=== PATIENT | female | born 1945 | race Caucasian/White ===

== ENCOUNTER 2020-08-08 11:02 | Outpatient (CLI) | payer MEDICARE, SELFPAY ==
[2020-08-08 12:07] LABS: Alanine Aminotransferase 23 U/L (4-35); Albumin Level 4.1 g/dL (3.5-5.1); Alkaline Phosphatase 85 U/L (38-126); Aspartate Amino Transferase 28 U/L (14-36); Bilirubin,Total 0.3 mg/dL (0.2-1.3)
== END 2020-08-08 11:03 | disposition home or self-care (01) ==
PROVIDERS: PCP Internal Medicine; Visit Provider Podiatrist Foot & Ankle Surgery
DX: B35.1 Tinea unguium (principal)
CPT/HCPCS: 36415; 80076

== ENCOUNTER 2020-11-07 11:48 | Outpatient (CLI) | payer MEDICARE, SELFPAY ==
[2020-11-07 12:59] LABS: Alanine Aminotransferase 23 U/L (4-35); Aspartate Amino Transferase 33 U/L (14-36)
== END 2020-11-07 11:49 | disposition home or self-care (01) ==
PROVIDERS: PCP Internal Medicine; Visit Provider Podiatrist Foot & Ankle Surgery
DX: B35.1 Tinea unguium (principal)
CPT/HCPCS: 36415; 84450; 84460

== ENCOUNTER 2021-02-06 11:39 | Outpatient (CLI) | payer MEDICARE, SELFPAY ==
[2021-02-06 12:08] LABS: Alanine Aminotransferase 24 U/L (4-35); Aspartate Amino Transferase 27 U/L (14-36)
== END 2021-02-06 11:40 | disposition home or self-care (01) ==
PROVIDERS: PCP Internal Medicine; Visit Provider Podiatrist Foot & Ankle Surgery
DX: B35.1 Tinea unguium (principal)
CPT/HCPCS: 36415; 84450; 84460

== ENCOUNTER 2021-07-08 15:26 | Emergency (ER) | payer MEDICARE, SELFPAY ==
--- NOTE | ~2021-07-08 | XR_ITS ---
EXAMINATION: XR lumbar spine 2-3V EXAM DATE: 07/08/2021 18:12 INDICATION: Fall, coccygeal pain. TECHNIQUE: Lumber spine frontal, lateral, lateral L5-S1 projections for interpretation. There is no prior study for comparison. FINDINGS: Sacrum, sacroiliac joints, sacral arcuate lines are intact. Mild lumbar levoscoliosis. Akbar tebral body heights are maintained. There is mild to moderate lumbar disc disease and moderate to sev ere arthropathy. Left hip replacement. Paraspinal soft tissue is unremarkable. IMPRESSION: No acute lumbosacral fracture identified. Reviewed, dictated and finalized at location A. WEAVER
[2021-07-08 15:35] VITALS: BP 154/85; PULSE 75; RESP 16; TEMP 36.7; O2SAT 97
--- NOTE | 2021-07-08 18:47 | ED.GENADULT ---
HPI - General Adult General Chief complaint: Unspecified Stated complaint: FALL, BUTTOCK PAIN Time Seen by Provider: 07/08/21 18:19 History of Present Illness HPI narrative: Patient is a 76-year-old female who presents ER with pain to her buttock. Patient was sitting down in her bathtub when she misjudged the distance and fell directly onto her coccyx. She has been able to have bowel movements and has had normal urination. No numbness or tingling in her groin or going down the legs normal strength in her legs. She has been using a doughnut cushion for sitting due to pain. Denies any blood in stool. Pain is worsened with going from sitting to standing and with direct palpation. Related Data Allergies Allergy/AdvReac Type Severity Reaction Status Date / Time No Known Drug Allergies Allergy Unknown Unknown Verified 07/08/21 17:47 Review of Systems Review of Systems: All systems reviewed & are unremarkable except as noted in HPI and below Musculoskeletal: Musculoskeletal: Reports back pain (sacral), Denies numbness and Denies tingling Neurologic: Denies focal weakness and Denies tingling PMFSH Past Medical History Medical History (Updated 07/08/21 @ 19:11 by Ayan Pearson MD) Hypertension Surgical History Surgical History (Updated 07/08/21 @ 19:11 by Ayan Pearson MD) History of hip surgery Social History Social History Smoking status: Never smoker Exam Narrative: GENERAL: Well-appearing, well-nourished, and in no acute distress. HEAD: Normocephalic, atraumatic. BACK: No reproducible tenderness of the midline/paraspinal musculature of the thoracic or lumbar regions. Tender inferior to gluteal cleft. EXTREMITIES: Normal range of motion. No edema. SKIN: Warm, dry, no rash. NEURO: Alert and oriented x3. PSYCH: Normal mood and affect. Course Course Emergency Course: Patient formed results. Able to ambulate. Will give some narcotic pain medication for home. Vital Signs Vital signs: Vital Signs Temperature 98.0 F 07/08/21 15:35 Pulse Rate 75 07/08/21 15:35 Respiratory Rate 16 07/08/21 15:35 Blood Pressure 154/85 H 07/08/21 15:35 Pulse Oximetry 97 07/08/21 15:35 Temperature 98.0 F 07/08/21 15:35 Pulse Rate 75 07/08/21 15:35 Respiratory Rate 16 07/08/21 15:35 Blood Pressure 154/85 H 07/08/21 15:35 Pulse Oximetry 97 07/08/21 15:35 Medical Decision Making Vital Signs Vital Signs: Vital Signs Temperature 98.0 F 07/08/21 15:35 Pulse Rate 75 07/08/21 15:35 Respiratory Rate 16 07/08/21 15:35 Blood Pressure 154/85 H 07/08/21 15:35 Pulse Oximetry 97 07/08/21 15:35 Temperature 98.0 F 07/08/21 15:35 Pulse Rate 75 07/08/21 15:35 Respiratory Rate 16 07/08/21 15:35 Blood Pressure 154/85 H 07/08/21 15:35 Pulse Oximetry 97 07/08/21 15:35 Imaging Data Radiologist's impression: ITS Impressions Lumbar Spine X-Ray 07/08/21 18:16 IMPRESSION: No acute lumbosacral fracture identified. Discharge Plan Discharge Clinical Impression: Sacral contusion Patient Disposition: Home, Self-Care Condition: Stable Instructions: Contusion in Adults (ED) Additional Instructions: You likely have a deep contusion of your buttock at your coccyx. This will heal with time. Continue to use your Church for comfort. Take Tylenol or ibuprofen as needed for pain. Return to the ER if you have increased pain in your back, you develop lower extremity weakness/numbness/paralysis, you have numbness or tingling in your private parts, or you are unable to control your ability to urinate/stool. Prescriptions: New hydrocodone-acetaminophen 5-325 mg tablet 1 tablet PO Q6H PRN (Reason: pain) Qty: 12 RF: 0 Follow-up/Referrals: Jose Alberto,Jared Gupta MD [Primary Care Provider] - 1 Week
[2021-07-08 19:33] VITALS: BP 145/72; PULSE 66; RESP 16; O2SAT 96
== END 2021-07-08 19:34 | disposition home or self-care (01) ==
LOC: ANHED 18:50
PROVIDERS: Emergency Provider Emergency Medicine; PCP Internal Medicine
DX: S30.0XXA Contusion of lower back and pelvis, initial encounter (principal); I10 Essential (primary) hypertension; W18.39XA Other fall on same level, initial encounter
CPT/HCPCS: 72100; 99283

== ENCOUNTER 2021-08-18 16:01 | Inpatient (IN) | payer MEDICARE, SELFPAY ==
--- NOTE | ~2021-08-18 | US_ITS ---
US venous doppler [facility] DATE: 08/19/2021 13:39 INDICATION: Posterior left knee pain TECHNIQUE: Real-time and color flow imaging and Doppler analysis of the veins of the lower extremitie s COMPARISON: None FINDINGS: There is spontaneous and phasic flow and normal augmentation and color flow signal and norm al compression of the deep veins of both lower extremities. IMPRESSION: No evidence of deep venous thrombosis of either leg Reviewed, dictated and finalized at Location A. Reviewed, dictated and finalized at location A. RPERSONAL COMMUNICATIONS PROFESSOR
--- NOTE | ~2021-08-18 | XR_ITS ---
EXAMINATION: XR knee LT 3V DATE: 08/18/2021 16:51 INDICATION: Left knee pain TECHNIQUE: Three views of the left knee were obtained. COMPARISON: None. FINDINGS: Alignment is normal. No acute fracture or osteochondral lesion. There is an old fracture of the patella. There is moderate tricompartmental osteoarthritis. A small knee joint effusion is prese nt. There is tendinous calcification cranial to the patella. Soft tissue swelling is noted. IMPRESSION: 1. No acute osseous abnormality. Reviewed, dictated and finalized at location F. ERECTOR APPRENTICE
--- NOTE | ~2021-08-18 | XR_ITS ---
EXAMINATION: XR knee RT 3V DATE: 08/21/2021 13:36 INDICATION: Right knee effusion. TECHNIQUE: 3 views of right knee were obtained. COMPARISON: None. FINDINGS: Bone alignment is normal. No fracture. There is moderate osteoarthritis of patellofemoral c ompartment and mild osteoarthritis of medial and lateral compartments. There is chondrocalcinosis of the menisci. There is a large knee joint effusion. IMPRESSION: 1. Moderate right knee osteoarthritis. 2. Large right knee joint effusion. Reviewed, dictated and finalized at location A. IFIED TEACHER ASSISTANT
--- NOTE | ~2021-08-18 | XR_ITS ---
EXAMINATION: XR chest 2V DATE: 08/18/2021 16:51 INDICATION: Increased weakness and confusion TECHNIQUE: AP and lateral views of the chest are obtained. COMPARISON: None available FINDINGS: The lungs are free of acute opacities. There is no pleural effusion or pneumothorax. The ca rdiomediastinal silhouette is normal. There is moderate thoracic spondylosis. There is moderate osteo arthritis of the shoulders. IMPRESSION: 1. No acute cardiopulmonary abnormality. Reviewed, dictated and finalized at location F. ETICS TEACHER
[2021-08-18 16:02] VITALS: TEMP 37.1
[2021-08-18 16:10] VITALS: BP 140/64; PULSE 90; RESP 20; TEMP 38.8; O2SAT 96
--- NOTE | 2021-08-18 16:15 | ECG_ITS ---
Measurements Intervals [place]um Rate: 85 P: 34 IA: 140 QRS: 16 QRSD: 89 T: 7 QT: 365 QTc: 436 Interpretive Statements SINUS RHYTHM VOLTAGE CRITERIA FOR LVH BORDERLINE ST-T WAVE ABNORMALITY- ANT/INF LEADS BASELINE ARTIFACT- I, II, III, AVR, AVL,A VF BORDERLINE ECG Electronically Signed On 08-18-2021 16:43:56 SANDBLASTER PAINT SPRAYER by Rahat Guzmán D.O.
[2021-08-18 16:46] LABS: Hematocrit 37.9 % (37.0-47.0); Hemoglobin 12.7 g/dL (12.0-15.0); Mean Corpuscular HGB Conc 33.5 g/dl (32-36); Mean Corpuscular Hemoglobin 28.7 pg (26-34); Mean Corpuscular Volume 85.7 fl (80-100); Mean Platelet Volume 8.9 fl (7.4-10.4); Platelet Count Result 384 k/mm3 (150-375); Red Blood Count 4.42 M/mm3 (4.2-5.4); Red Cell Distribution Width 14.1 % (11.5-14.5)
[2021-08-18 16:54] LABS: Lactic Acid Reflex 1.5 mmol/L (0.7-2.1)
--- NOTE | 2021-08-18 17:21 | ED.GENADULT ---
HPI - General Adult General Chief complaint: Extremity Problem,Nontraumatic Stated complaint: left leg swelling/pain Time Seen by Provider: 08/18/21 16:19 History of Present Illness HPI narrative: Patient is a 76-year-old female who presents ER with left knee pain. Ongoing for 2 days. Reports she cannot bear weight without significant pain. Its become swollen and warm. She was found to be febrile here. No known fall or injury. No chest pain/shortness of breath/nausea/vomiting/dizziness. Related Data Home Medications Medication Instructions Recorded Confirmed amlodipine 08/18/21 08/18/21 benzonatate mg PO 08/18/21 diphenoxylate-atropine tablet 08/18/21 doxycycline hyclate 08/18/21 ferrous sulfate mg PO 08/18/21 hydrocodone-acetaminophen 08/18/21 lancets [OneTouch Delica Plus 08/18/21 08/18/21 Lancet] mesalamine PO 08/18/21 mesalamine g PO 08/18/21 metformin mg 08/18/21 metformin mg 08/18/21 metoprolol tartrate 08/18/21 metronidazole 08/18/21 pantoprazole PO 08/18/21 pravastatin 08/18/21 sulfamethoxazole-trimethoprim tablet 08/18/21 terbinafine HCl mg 08/18/21 Allergies Allergy/AdvReac Type Severity Reaction Status Date / Time No Known Drug Allergies Allergy Unknown Unknown Verified 08/18/21 16:13 Review of Systems Review of Systems: All systems reviewed & are unremarkable except as noted in HPI and below Constitutional: Constitutional: Denies chills, Reports fatigue, Reports fever(s) and Reports weakness ENT: Denies nasal congestion and Denies sore throat Cardiovascular: Cardiovascular: Denies chest pain, Denies rapid heart rate and Denies radiating jaw, neck or arm pain Respiratory: Respiratory: Denies cough and Denies dyspnea Gastrointestinal: Gastrointestinal: Denies abdominal pain, Denies nausea and Denies vomiting Musculoskeletal: Musculoskeletal: Reports arthralgias and Reports joint swelling Integumentary/Breasts: Skin/Breast: Denies erythema and Denies rash [facility] Past Medical History Medical History (Updated 08/18/21 @ 18:29 by Ayan Pearson MD) Diabetes GERD (gastroesophageal reflux disease) Hyperlipidemia Hypertension Ulcerative colitis Surgical History Surgical History (Updated 07/08/21 @ 19:11 by Ayan Pearson MD) History of hip surgery Social History Social History Smoking status: Never smoker Exam Narrative: GENERAL: Well-appearing, well-nourished, and in no acute distress. HEAD: Normocephalic, atraumatic. EYES: PERRL and EOMI. CHEST: Clear to auscultation. No respiratory distress. HEART: Regular rate and rhythm. Normal peripheral pulses. ABDOMEN: Soft, nontender, nondistended. EXTREMITIES: Left lower extremity with effusion at knee with warmth. Patient unable to perform active/passive range of motion due to pain. Unremarkable upper extremities and right lower extremity. SKIN: Warm, dry, no rash. NEURO: Alert and oriented x3. PSYCH: Normal mood and affect. Course Course Emergency Course: Bloody turbid fluid with floating yellow material. Admit to hospitalist service. Started on Vanco and Zosyn. Orthopedic surgery consulted. Fluid sent for cell count/gram stain/body fluid culture/crystals, there was not enough fluid for glucose or protein. Vital Signs Vital signs: Vital Signs Temperature 98.8 F 08/18/21 16:02 Temperature 101.8 F H 08/18/21 16:10 Pulse Rate 90 08/18/21 16:10 Respiratory Rate 20 08/18/21 16:10 Blood Pressure 140/64 08/18/21 16:10 Pulse Oximetry 96 08/18/21 16:10 Procedures Joint Aspiration/Injection Joint Asp./Inject. 1: Joint Aspiration Date: 08/18/21 Joint Aspiration Time: 18:10 Time Out Performed: Yes Side of body: left Joint Aspirated: knee Skin Prep: Chlorhexidine Local Anesthetic: lidocaine 1% and with epi Amount of anesthesia used (mL): 4 Needle Size Used: 18G Fluid Obtained: other (bloody fluid with olivia
[2021-08-18 17:24] LABS: Band Neutrophils Percent 4 % (0-6); Lymphocytes Absolute Manual 0.96 K/mm3 (1.1-4.5); Monocytes Absolute Manual 0.96 K/mm3 (0.1-0.90); Monocytes Percent Manual 4 % (3-9); Neutrophils Absolute Manual 22.08 K/mm3 (1.7-7.2); Neutrophils Percent Manual 88 % (46-73); Total Cells Counted 100
[2021-08-18 17:25] LABS: Platelet Estimate Increased (Adequate)
[2021-08-18 17:26] LABS: Erythrocyte Sedimentation Rate 42 mm/hr (0-20)
[2021-08-18 17:29] LABS: Alanine Aminotransferase 14 U/L (4-35); Albumin Level 3.4 g/dL (3.5-5.1); Alkaline Phosphatase 99 U/L (38-126); Anion Gap 8 mmol/L (8-16); Aspartate Amino Transferase 23 U/L (14-36); Bilirubin,Total 0.6 mg/dL (0.2-1.3); Blood Urea Nitrogen 13 mg/dL (7-17); Calcium 8.8 mg/dL (8.4-10.2); Carbon Dioxide 29 mmol/L (22-30); Chloride 95 mmol/L (98-107); Estimated Glomerular Filt Rate > 60; Glucose 160 mg/dL (65-110); Potassium 3.4 mmol/L (3.4-5.0); Sodium 132 mmol/L (137-145)
[2021-08-18] MEDS: MORPHINE SULFATE (*CRX) 4 MG/ML INJ IV PUSH (17:31)
[2021-08-18 17:33] LABS: CRP 16.3 mg/dL (<1.0)
[2021-08-18 18:47] VITALS: BP 123/93; PULSE 82; RESP 18; O2SAT 100
--- NOTE | 2021-08-18 19:00 | PM.IMHP ---
H&P: HPI History of Present Illness Date/Time: 08/18/21 19:00 Chief Complaint: Left knee pain and swelling. Narrative: This is a very pleasant 76-year-old female with hypertension, hyperlipidemia, prediabetes, and ulcerative colitis who presented to the emergency department earlier today from home for evaluation of left knee pain and swelling. About a week ago she awoke with some mild aching pain in her left knee and since that time it has become progressively more swollen, warm, and painful. She has been taking Tylenol at home without much benefit. Today she could not even bear weight on her leg due to severe pain and thus she came in for evaluation. X-ray showed moderate tricompartmental arthritis with a small effusion and soft tissue swelling. Arthrocentesis done in the emergency department yielded bloody admixed with yellowish and purulent appearing particulate matter and she is being admitted with the working diagnosis of septic arthritis. She also mentions increasing diarrhea over the past couple of weeks, at least 2 to 3 times per day, consistent with diarrhea that she experiences when her ulcerative colitis flares. She has felt warm at home and indeed she had a temperature of 101.8? on arrival to the ER today. She denies sinus congestion, rhinorrhea, otalgia, odynophagia, cough, shortness of breath, nausea, vomiting, and abdominal pain. She has not noticed any blood or mucus in the stool. She has no history of gout or pseudogout. She has not injured her knee. Review of Systems Review of Systems: Twelve systems were reviewed and are negative except for as per HPI. [facility] Past Medical History Medical History (Updated 08/18/21 @ 22:29 by Leyla Lal PA-C) Deafness in right ear Gastroesophageal reflux disease Hyperlipidemia Hypertension Prediabetes Ulcerative colitis Surgical History Surgical History (Updated 08/18/21 @ 22:24 by Leyla Lal PA-C) History of dilation and curettage History of hip surgery Left hip surgery. Family History Family History (Updated 08/18/21 @ 22:24 by Leyla Lal PA-C) Other Diabetes mellitus Hypertension Social History Social History (Updated 08/18/21 @ 22:24 by Leyla Lal PA-C) Social History: Lives in [place]. Nonsmoker. No alcohol or illicit substance use. 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 Surrogate decision maker: Aby Riley, daughter. Code status: Full code. Meds Home Medications and Allergies Home Medications Medication Instructions Recorded Confirmed Type amlodipine 08/18/21 08/18/21 History aspirin 81 mg PO DAILY 08/18/21 08/18/21 History cyanocobalamin (vitamin B-12) 500 mcg PO DAILY 08/18/21 08/18/21 History [Vitamin B-12] diphenoxylate-atropine tablet 08/18/21 History ferrous sulfate mg PO 08/18/21 History mesalamine g PO 08/18/21 History metformin mg 08/18/21 History metoprolol tartrate 08/18/21 History multivitamin with minerals [All 1 tablet PO DAILY 08/18/21 08/18/21 History Purpose Multivitamin-Min] pantoprazole PO 08/18/21 History pravastatin 08/18/21 History Allergies Allergy/AdvReac Type Severity Reaction Status Date / Time No Known Drug Allergies Allergy Unknown Unknown Verified 08/18/21 22:12 Vital Signs Vital Signs - 24 hr 08/18/21 16:02 08/18/21 16:10 08/18/21 18:47 Temperature 98.8 F 101.8 F H Pulse Rate 90 82 Respiratory Rate 20 18 Blood Pressure 140/64 123/93 H Pulse Oximetry 96 100 08/18/21 19:09 08/18/21 21:42 Temperature 97.9 F Pulse Rate 80 77 Respiratory Rate 20 16 Blood Pressure 105/79 129/66 Pulse Oximetry 95 97 Exam Narrative: General: Well-developed, nontoxic elderly female supine in bed. Weight: 74 kg. BMI: 29.8. HEENT: Hard of hearing. Hearing aid in the left ear. PERRL, EOMI. Sclerae anicteric. Oral mucosa moist. Neck: Supple. No adenopathy. Respiratory: Lungs are clear to auscultation bilaterally. Cardiovascular: Regular rate and rhy
[2021-08-18 19:09] VITALS: BP 105/79; PULSE 80; RESP 20; O2SAT 95
[2021-08-18 19:12] LABS: Crystals Synovial Fluid None Seen (None Seen)
[2021-08-18 19:13] LABS: Appearance Synovial Fluid Bloody (Clear); Color Synovial Fluid Red (Colorless); Source Synovial Fluid Synovial fluid
[2021-08-18 19:16] LABS: Lymphocytes Synovial Fluid 2 %; Monocytes Synovial Fluid 3 %; Neutrophils Synovial Fluid 95 % (0-25)
[2021-08-18 19:39] LABS: SARS-CoV-2 RNA PCR Negative
--- NOTE | 2021-08-18 20:17 | PC.NURSE ---
straight cath for urine spec sent to lab
[2021-08-18] MEDS: SODIUM CHLORIDE 0.9% IV 1,000 ML 125 ML IV CONT (20:34)
[2021-08-18 20:45] LABS: Add Urine Microscopic? YES; Appearance Urine Clear (Clear); Bacteria Urine Trace /hpf; Bilirubin Urine Negative (Negative); Blood Urine Negative (Negative); Color Urine Yellow (Yellow); Glucose Urine UA Negative (Negative); Ketones Urine Trace mg/dL (Negative); Leukocyte Esterase Ur Negative LEU/UL (Negative); Mucus Urine Rare /lpf; Nitrate Urine Negative (Negative); Protein Urine Negative (Negative); RBC Urine 0-2 /hpf (0-2); Urobilinogen Urine Negative mg/dL (<2.0)
--- NOTE | 2021-08-18 21:03 | ADMGEN ---
This patient, Lisa Allen, was admitted to 2 Medical Room [id number]. Patient/family oriented to hospital policies and general routines including ID bracelet, bed and alarms, visiting hours, pain management, procedures, bathroom and other care routines, personal items, smoking policy, room service/diet, and visiting hours. Information on how to activate the Rapid Response Team has been discussed. Patient/Family are encouraged to report perceived risks to care and to ask questions if they do not understand what they are told or what they should do.
[2021-08-18 21:42] VITALS: BP 129/66; PULSE 77; RESP 16; TEMP 36.6; O2SAT 97
[2021-08-18 23:42] VITALS: PULSE 77
[2021-08-18] MEDS: METOPROLOL TARTRATE 50 MG TAB PO (23:42)
[2021-08-18] MEDS: HYDROcodone/acetaminophen (*CRX) 5-325 MG TABLET 1 TAB PO (23:43)
[2021-08-18] MEDS: PRAVASTATIN SODIUM 20 MG TABLET 40 MG PO (23:43)
[2021-08-18] MEDS: PANTOPRAZOLE 40 MG TABLET PO (23:43)
[2021-08-19] VITALS (11 sets, daily range): BP systolic 101–129; BP diastolic 46–66; PULSE 68–95; RESP 14–18; TEMP 36.3–37.1; O2SAT 92–96
[2021-08-19] MEDS: SODIUM CHLORIDE 0.9% IV 1,000 ML 125 ML IV CONT (05:27)
[2021-08-19 06:17] LABS: Basophils Absolute Auto 0.1 K/mm3 (0.0-0.1); Basophils Percent Auto 0.3 % (0.2-1.2); Eosinophils Percent Auto 0.2 % (0-4.4); Hemoglobin 12.1 g/dL (12.0-15.0); Immature Granulocyte Absolute 0.16 K/mm3 (0.00-0.031); Immature Granulocyte Percent A 0.9 % (0-0.5); Lymphocytes Absolute Auto 3.22 K/mm3 (0.9-3.2); Lymphocytes Percent Auto 18.3 % (18.3-44.2); Mean Corpuscular HGB Conc 32.7 g/dl (32-36); Mean Corpuscular Hemoglobin 28.8 pg (26-34); Mean Corpuscular Volume 88.1 fl (80-100); Mean Platelet Volume 9.1 fl (7.4-10.4); Monocytes Absolute Auto 1.9 K/mm3 (0.1-0.6); Monocytes Percent Auto 10.5 % (2.6-8.5); Neutrophils Absolute Auto 12.2 K/mm3 (1.3-6.7); Neutrophils Percent Auto 69.8 % (45.5-73.1); Platelet Count Result 373 k/mm3 (150-375); Red Cell Distribution Width 14.2 % (11.5-14.5); White Blood Count 17.6 K/mm3 (4.5-10.0)
[2021-08-19 06:31] LABS: Alanine Aminotransferase 16 U/L (4-35); Albumin Level 3.2 g/dL (3.5-5.1); Alkaline Phosphatase 88 U/L (38-126); Anion Gap 9 mmol/L (8-16); Aspartate Amino Transferase 22 U/L (14-36); Bilirubin,Total 0.6 mg/dL (0.2-1.3); Blood Urea Nitrogen 15 mg/dL (7-17); Calcium 8.4 mg/dL (8.4-10.2); Carbon Dioxide 26 mmol/L (22-30); Chloride 99 mmol/L (98-107); Estimated CRCL calculation 38 ml/min; Estimated Glomerular Filt Rate 54; Glucose 139 mg/dL (65-110); Magnesium 2.2 mg/dL (1.6-2.3); Potassium 3.4 mmol/L (3.4-5.0); Sodium 134 mmol/L (137-145)
[2021-08-19 07:52] LABS: Glucose Point of Care 153 mg/dl (65-105)
[2021-08-19 08:57] LABS: Hemoglobin A1C 6.5 % (<5.7)
[2021-08-19] MEDS: amLODIPine BESYLATE 5 MG TABLET PO (09:25)
[2021-08-19] MEDS: THERAPEUTIC MULTIVITAMINS/MINERALS TAB (*BKC) 1 TABLET PO (09:25)
[2021-08-19] MEDS: FERROUS SULFATE 324 MG TABLET PO (09:25)
[2021-08-19] MEDS: POTASSIUM CHLORIDE 20 MEQ TABLET 40 MEQ PO (09:25)
[2021-08-19] MEDS: METOPROLOL TARTRATE 50 MG TAB PO ×2 (09:25→20:26)
[2021-08-19] MEDS: CYANOCOBALAMIN 500 MCG TABLET PO (09:25)
[2021-08-19] MEDS: HYDROcodone/acetaminophen (*CRX) 5-325 MG TABLET 1 TAB PO ×3 (09:29→20:57)
[2021-08-19] MEDS: DIPHENOXYLATE/ATROPINE (*CRX) 2.5 MG TABLET 1 TABLET PO ×2 (09:55→17:17)
--- NOTE | 2021-08-19 09:55 | PM.CNOR ---
Assessment and Plan Assessment and plan (1) Septic joint of left knee joint: Qualifiers: Septic arthritis organism: due to unspecified organism Qualified Code(s): M00.9 - Pyogenic arthritis, unspecified <CHAMP Rock - Last Filed: 08/19/21 10:25> Code(s): M00.9 - Pyogenic arthritis, unspecified <CHAMP Rock - Last Filed: 08/19/21 10:25> Status: Acute <CHAMP Rock - Last Filed: 08/19/21 10:25> Assessment and Plan: Severe acute left knee pain. Significant warmth and erythema. Bloody tap with a paucity of fluid from the emergency room. WBC 17,000, down from 24,000. Synovial WBC not counted. PMN's 95% on the tap. Cultures pending. History of ulcerative colitis with current diarrhea. Sed rate and ESR elevated. Low-grade fevers. No other definite infection source. Possibly urinary tract. Differential diagnosis includes gout or pseudogout. She does have a history of gout. Currently the right knee is also mildly painful without signs of infection. No other definite joint involvement. 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 Recommend IV antibiotics while we await cultures. No indication for surgery at this time. Serial aspirations may be required. <Bimal Welch MD - Last Filed: 08/19/21 10:24> History of Present Illness HPI Consult date: 08/19/21 <CHAMP Rock - Last Filed: 08/19/21 10:25> 08/19/21 <Bimal Welch MD - Last Filed: 08/19/21 10:24> Consult reason: joint pain <CHAMP Rock - Last Filed: 08/19/21 10:25> Chief complaint: Septic Arthritis <CHAMP Rock - Last Filed: 08/19/21 10:25> Narrative: Patient was admitted through the ER on 08/18/21 with concerns for septic arthritis in the left knee. Complained of 2 days of inability to bear weight, swelling, warmth, fever, and diarrhea. In the ER, her knee was aspirated and found to have bloody fluid with yellow purulent particulate matter. She has a history of ulcerative colitis and gout in her foot in the past. Today she complains of tenderness to touch to the left knee, right knee pain, and diarrhea. ESR and CRP are elevated. Anaerobic cultures pending. Gram stain showed no growth and many WBC. 95 Neutrophils. No crystals seen. She has received IV Zosyn and Vancomycin. 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 <CHAMP Rock - Last Filed: 08/19/21 10:25> Review of Systems Review of Systems: Patient also complains of diarrhea with ulcerative colitis flare. The right knee is starting to her. Low-grade fever. No recent weight loss. No bladder symptoms. <Bimal Welch MD - Last Filed: 08/19/21 10:24> Constitutional: Constitutional: Reports as per HPI and Reports frequent falls <Bimal Welch MD - Last Filed: 08/19/21 10:24> [facility] Past Medical History Medical History: Medical History Deafness in right ear Gastroesophageal reflux disease Hyperlipidemia Hypertension Prediabetes Ulcerative colitis <CHAMP Rock - Last Filed: 08/19/21 10:25> Surgical History Surgical History: Surgical History History of dilation and curettage History of hip surgery Left hip surgery. <CHAMP Rock - Last Filed: 08/19/21 10:25> Family History Family History: Family History Other Diabetes mellitus Hypertension <CHAMP Rock - Last Filed: 08/19/21 10:25> Social History Social History: Social History Social History: Lives in [place]. Nonsmoker. No alcohol or illicit substance use. Retired grade [employer]
--- NOTE | 2021-08-19 10:42 | PM.IMPN ---
Progress Note: A&P Assessment and Plan (1) Sepsis: Code(s): A41.9 - Sepsis, unspecified organism Status: Acute Assessment and Plan: Sepsis is present on admission supported by fever, bandemia, and leukocytosis. Presumably due to septic joint. While the patient has had diarrhea consistent with possible ulcerative colitis flare, her abdominal exam has been benign. Lactic acid level is within normal limits. Her vital signs are stable. Blood and joint cultures pending. Continue monitoring. (2) Septic joint of left knee joint: Qualifiers: Septic arthritis organism: due to unspecified organism Qualified Code(s): M00.9 - Pyogenic arthritis, unspecified Code(s): M00.9 - Pyogenic arthritis, unspecified Status: Acute Assessment and Plan: Working diagnosis is septic left knee joint Synovial fluid analysis showed bloody appearance, elevated neutrophils 95% and no crystals seen. Patient seen by Dr. Welch today and recommend continuing broad-spectrum antibiotics. Monitoring labs and waiting for culture results. Continue IV empiric vancomycin and Zosyn #2. Analgesics available as needed. Continue monitoring (3) Diarrhea: Code(s): R19.7 - Diarrhea, unspecified Status: Acute Assessment and Plan: Patient has had several episodes of diarrhea daily for the last 2 weeks which she has attributed to her ulcerative colitis. She has not noticed any blood or mucus in the stool and denies abdominal pain. She has not had sick contacts, recent travel, or recent antibiotic use. (4) Ulcerative colitis: Code(s): K51.90 - Ulcerative colitis, unspecified, without complications Status: Acute Assessment and Plan: Hold mesalamine for now pending confirmation of septic joint. (5) Hypertension: Code(s): I10 - Essential (primary) hypertension Status: Acute Assessment and Plan: Blood pressures were reviewed and they are stable, 105/54. Her antihypertensives will be reviewed and resumed as appropriate. (6) Prediabetes: Code(s): R73.03 - Prediabetes Status: Acute Assessment and Plan: Hold metformin while hospitalized. Continue monitoring ACHS. Hypoglycemic protocol. A1c 6.5%. Time Spent With Patient Time with patient: 25 - 35 minutes Subjective Date/time seen: 08/19/21 10:42 Interval history: Date of service 08/19/2021: Patient is still having pain, warmth, decreased range of motion of her left knee which began yesterday causing come to the ER. She denies any fevers, chills. She otherwise has not had any recent dental work, chest pain, shortness of breath, cough, nausea, vomiting, abdominal pain, leg swelling, calf pain, recent falls, recent trauma or any other abnormality. She is eating and drinking without any issues. Review of Systems Review of Systems: All systems reviewed & are unremarkable except as noted in HPI and below Exam Narrative: General: 76-year-old woman sitting up in bed watching TV. Appears comfortable. In no acute distress. Skin: No jaundice or cyanosis. Good skin turgor. Neck: Full range of motion. Supple. Respiratory: Lungs are clear to auscultation bilaterally. No bony chest wall tenderness. Cardiovascular: The heart has a regular rate and rhythm without murmur. No carotid bruits. Lower extremities: Left knee is edematous, erythematous, warmth noted, pain to palpation. No lower extremity edema. Distal pulses are easily palpated. No calf tenderness to palpation. Gastrointestinal: The abdomen is soft, nontender and nondistended with active bowel sounds. Psychiatric: Lucid and oriented. Memory intact. Neurologic: No focal deficits. Speech is clear. No facial drooping. Objective Data Vital Signs Vital Signs: Vital Signs - 24 hr 08/18/21 16:02 08/18/21 16:10 08/18/21 18:47 Temperature 98.8 F 101.8 F H Pulse Rate 90 82 Respiratory Rate 20 18 Blood Pre
[2021-08-19 11:51] LABS: Glucose Point of Care 150 mg/dl (65-105)
[2021-08-19 16:48] LABS: Glucose Point of Care 120 mg/dl (65-105)
[2021-08-19] MEDS: PANTOPRAZOLE 40 MG TABLET PO (17:13)
[2021-08-19] MEDS: PRAVASTATIN SODIUM 20 MG TABLET 40 MG PO (20:26)
[2021-08-20 03:15] VITALS: BP 109/51; PULSE 72; RESP 17; TEMP 36; O2SAT 92
[2021-08-20 07:04] LABS: Anion Gap 7 mmol/L (8-16); Blood Urea Nitrogen 11 mg/dL (7-17); CRP 16.6 mg/dL (<1.0); Calcium 7.8 mg/dL (8.4-10.2); Carbon Dioxide 23 mmol/L (22-30); Chloride 103 mmol/L (98-107); Estimated CRCL calculation 47 ml/min; Estimated Glomerular Filt Rate > 60; Glucose 124 mg/dL (65-110); Potassium 3.4 mmol/L (3.4-5.0); Sodium 133 mmol/L (137-145); Uric Acid 4.2 mg/dL (2.5-7.5)
[2021-08-20 07:49] LABS: Glucose Point of Care 109 mg/dl (65-105)
--- NOTE | 2021-08-20 08:15 | PM.IMPN ---
Progress Note: A&P Assessment and Plan (1) Sepsis: Code(s): A41.9 - Sepsis, unspecified organism Status: Acute Assessment and Plan: Sepsis is present on admission supported by fever, bandemia, and leukocytosis. Presumably due to septic joint. While the patient has had diarrhea consistent with possible ulcerative colitis flare, her abdominal exam has been benign. Lactic acid level is within normal limits. Her vital signs are stable. joint cultures NGTD Get blood cultures Continue antibiotics WBC 17.0 Trend labs Continue monitoring. (2) Septic joint of left knee joint: Qualifiers: Septic arthritis organism: due to unspecified organism Qualified Code(s): M00.9 - Pyogenic arthritis, unspecified Code(s): M00.9 - Pyogenic arthritis, unspecified Status: Acute Assessment and Plan: Working diagnosis is septic left knee joint Synovial fluid analysis showed bloody appearance, elevated neutrophils 95% and no crystals seen. Patient seen by Dr. Welch today and recommend continuing broad-spectrum antibiotics. Monitoring labs and waiting for culture results. Continue IV empiric vancomycin and Zosyn #2, change to cefepime and vanco to protect kidneys Analgesics available as needed. Continue monitoring (3) Diarrhea: Code(s): R19.7 - Diarrhea, unspecified Status: Acute Assessment and Plan: Patient has had several episodes of diarrhea daily for the last 2 weeks which she has attributed to her ulcerative colitis. She has not noticed any blood or mucus in the stool and denies abdominal pain. She has not had sick contacts, recent travel, or recent antibiotic use. (4) Ulcerative colitis: Code(s): K51.90 - Ulcerative colitis, unspecified, without complications Status: Acute Assessment and Plan: Hold mesalamine for now pending confirmation of septic joint. (5) Hypertension: Code(s): I10 - Essential (primary) hypertension Status: Acute Assessment and Plan: Blood pressures were reviewed and they are stable, 116/50 Her antihypertensives will be reviewed and resumed as appropriate. (6) Prediabetes: Code(s): R73.03 - Prediabetes Status: Acute Assessment and Plan: Hold metformin while hospitalized. Continue monitoring ACHS. Hypoglycemic protocol. A1c 6.5%. Time Spent With Patient Time with patient: 25 - 35 minutes Subjective Date/time seen: 08/20/21 0815 Interval history: Date of service 08/19/2021: Patient is still having pain, warmth, decreased range of motion of her left knee which began yesterday causing come to the ER. She denies any fevers, chills. She otherwise has not had any recent dental work, chest pain, shortness of breath, cough, nausea, vomiting, abdominal pain, leg swelling, calf pain, recent falls, recent trauma or any other abnormality. She is eating and drinking without any issues. Date of service 08/20/21 Patient is lying in bed on her side. Patient stated that she is able to bend her legs but she sleeps with a pillow between. She stated that her knees do hurt it is probably from inactivity. She also stated that she has colitis and normally gets diarrhea which she does have. Appetite it is good however she is not having either. She denies any bleeding along with chest pain, shortness of breath, nausea, vomiting, abdominal pain, headache. Review of Systems Review of Systems: All systems reviewed & are unremarkable except as noted in HPI and below Exam Const: General: cooperative, healthy appearing, no acute distress, well developed, alert and awake Nutritional Appearance: well nourished Orientation/consciousness: patient oriented x3 Limitations: no limitations HENMT: Head: normal to inspection Ears: hearing grossly normal bilaterally General nose exam: Normal external nose present Mouth: Yes Normal oral and palatal mucosa present, Yes lip normal and Yes tong
[2021-08-20] MEDS: amLODIPine BESYLATE 5 MG TABLET PO (08:51)
[2021-08-20] MEDS: FERROUS SULFATE 324 MG TABLET PO (08:51)
[2021-08-20 08:52] VITALS: PULSE 84
[2021-08-20] MEDS: THERAPEUTIC MULTIVITAMINS/MINERALS TAB (*BKC) 1 TABLET PO (08:52)
[2021-08-20] MEDS: METOPROLOL TARTRATE 50 MG TAB PO ×2 (08:52→20:32)
[2021-08-20] MEDS: CYANOCOBALAMIN 500 MCG TABLET PO (08:52)
[2021-08-20] MEDS: DIPHENOXYLATE/ATROPINE (*CRX) 2.5 MG TABLET 1 TABLET PO ×2 (08:56→17:33)
[2021-08-20 10:29] VITALS: BP 121/59; PULSE 75; RESP 20; TEMP 36.8; O2SAT 94
[2021-08-20 11:18] LABS: Basophils Absolute Auto 0.1 K/mm3 (0.0-0.1); Basophils Percent Auto 0.3 % (0.2-1.2); Eosinophils Absolute Auto 0.2 K/mm3 (0-0.3); Eosinophils Percent Auto 0.9 % (0-4.4); Hematocrit 36.9 % (37.0-47.0); Hemoglobin 11.5 g/dL (12.0-15.0); Immature Granulocyte Absolute 0.14 K/mm3 (0.00-0.031); Immature Granulocyte Percent A 0.8 % (0-0.5); Lymphocytes Absolute Auto 2.09 K/mm3 (0.9-3.2); Lymphocytes Percent Auto 12.3 % (18.3-44.2); Mean Corpuscular HGB Conc 31.2 g/dl (32-36); Mean Corpuscular Hemoglobin 28.8 pg (26-34); Mean Corpuscular Volume 92.3 fl (80-100); Monocytes Absolute Auto 1.1 K/mm3 (0.1-0.6); Monocytes Percent Auto 6.6 % (2.6-8.5); Neutrophils Absolute Auto 13.5 K/mm3 (1.3-6.7); Neutrophils Percent Auto 79.1 % (45.5-73.1); Platelet Count Result 332 k/mm3 (150-375); Red Cell Distribution Width 14.5 % (11.5-14.5)
[2021-08-20 11:41] LABS: Glucose Point of Care 136 mg/dl (65-105)
[2021-08-20 14:00] VITALS: BP 116/50; PULSE 76; RESP 18; TEMP 36.9; O2SAT 94
--- NOTE | 2021-08-20 15:44 | PM.PNORT ---
Progress Note: A&P Assessment and Plan (1) Septic joint of left knee joint: Qualifiers: Septic arthritis organism: due to unspecified organism Qualified Code(s): M00.9 - Pyogenic arthritis, unspecified Code(s): M00.9 - Pyogenic arthritis, unspecified Status: Acute Assessment and Plan: No significant change on exam of left knee today. No increased effusion requiring aspiration. Right knee with moderate effusion and pain today. Differential diagnosis includes gout or pseudogout. Will likely aspirate right knee tomorrow. Consider steroid injection. Will likely send fluid to look for crystals. Left knee cultures show no growth to date. Awaiting final cultures. Continue antibiotics. Afebrile today. Severe acute left knee pain. Significant warmth and erythema. Bloody tap with a paucity of fluid from the emergency room. WBC 17,000, down from 24,000. Synovial WBC not counted. PMN's 95% on the tap. Cultures pending. Uric acid with in normal range. History of ulcerative colitis with current diarrhea. Sed rate and ESR elevated. Low-grade fever on admission. No other definite infection source. Possibly urinary tract. She does have a history of gout. 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 Subjective Subjective Date/Time Seen: 08/20/21 15:44 Patient complaining of worsening right knee pain and swelling today. Also left knee pain. Pain radiating up her thigh. Mild left calf pain. Doppler today was negative for DVT on the left. Afebrile today. No other complaints. Cultures show no growth at this time. Patient was admitted through the ER on 08/18/21 with concerns for septic arthritis in the left knee. Complained of 2 days of inability to bear weight, swelling, warmth, fever, and diarrhea. In the ER, her knee was aspirated and found to have bloody fluid with yellow purulent particulate matter. She has a history of ulcerative colitis and gout in her foot in the past. Complained of tenderness to touch to the left knee, right knee pain, and diarrhea. ESR and CRP are elevated. Anaerobic cultures pending. Gram stain showed no growth and many WBC. 95 Neutrophils. No crystals seen. She has received IV Zosyn and Vancomycin. 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 Review of Systems Review of Systems: All systems reviewed & are unremarkable except as noted in HPI and below Exam Narrative: Pleasant 76-year-old female. Hard of hearing. Lying in bed cofortably. Vital signs stable. Comfortable. Alert orient x3. Shows fair insight. Left knee: significant warmth. Mild erythema. Diffuse exquisite tenderness. Painful range of motion for 10? to 30?. No varus or valgus deformity. Mild effusion. Severe synovitis. No significant change since previous day. Right knee: warmth, No erythema, Diffuse exquisite tenderness. Painful ROM. No obvious deformity. Moderate effusion. Ankle examination benign. Neurovascular intact. No edema. Objective Data Vital Signs Vital Signs: Vital Signs - 24 hr 08/19/21 17:30 08/19/21 20:00 08/19/21 20:26 Temperature 98.1 F Pulse Rate 77 70 Respiratory Rate 18 Blood Pressure 106/46 L Pulse Oximetry 96 96 08/19/21 20:34 08/19/21 23:16 08/20/21 03:15 Temperature 97.9 F 98.6 F 96.8 F L Pulse Rate 80 95 72 Respiratory Rate 17 18 17 Blood Pressure 129/66 101/58 L 109/51 L Pulse Oximetry 96 94 92 08/20/21 08:52 08/20/21 10:29 08/20/21 14:00 Temperature 98.2 F 98.5 F Pulse Rate 84 75 76 Respiratory Rate 20 18 Blood Pressure 121/59 L 116/50 L Pulse Oximetry 94 94 Intake/Output Intake/Output: Intake & Output 08/17/21 08/18/21 08/19/21 08/20/21 23:59 23:59 23:59 23:59 Intake Total 50 4460 580 Output Total 2250 200 Balance 50 2210 380 Meds/Results Medications: Active Medications Generic Name Dose Route Start Last Admin Trade Name F
[2021-08-20 16:45] LABS: Glucose Point of Care 110 mg/dl (65-105)
[2021-08-20] MEDS: PRAVASTATIN SODIUM 20 MG TABLET 40 MG PO (17:31)
[2021-08-20] MEDS: PANTOPRAZOLE 40 MG TABLET PO (17:32)
[2021-08-20 20:32] VITALS: PULSE 78
[2021-08-20 20:56] LABS: Glucose Point of Care 123 mg/dl (65-105)
[2021-08-20 20:57] VITALS: BP 140/54; PULSE 80; RESP 20; TEMP 36.2; O2SAT 97
[2021-08-21] VITALS (8 sets, daily range): BP systolic 123–155; BP diastolic 51–72; PULSE 70–83; RESP 18–22; TEMP 36.1–37.3; O2SAT 94–100
[2021-08-21] MEDS: HYDROcodone/acetaminophen (*CRX) 5-325 MG TABLET 1 TAB PO (02:49)
[2021-08-21 05:54] LABS: Basophils Percent Auto 0.3 % (0.2-1.2); Eosinophils Absolute Auto 0.1 K/mm3 (0-0.3); Eosinophils Percent Auto 0.7 % (0-4.4); Hematocrit 33.6 % (37.0-47.0); Hemoglobin 10.8 g/dL (12.0-15.0); Immature Granulocyte Absolute 0.11 K/mm3 (0.00-0.031); Immature Granulocyte Percent A 0.8 % (0-0.5); Lymphocytes Percent Auto 15.9 % (18.3-44.2); Mean Corpuscular HGB Conc 32.1 g/dl (32-36); Mean Corpuscular Hemoglobin 29.4 pg (26-34); Mean Corpuscular Volume 91.6 fl (80-100); Monocytes Percent Auto 7.4 % (2.6-8.5); Neutrophils Absolute Auto 10.3 K/mm3 (1.3-6.7); Neutrophils Percent Auto 74.9 % (45.5-73.1); Platelet Count Result 310 k/mm3 (150-375); Red Blood Count 3.67 M/mm3 (4.2-5.4); Red Cell Distribution Width 14.2 % (11.5-14.5); White Blood Count 13.8 K/mm3 (4.5-10.0)
[2021-08-21 06:02] LABS: Alanine Aminotransferase 17 U/L (4-35); Albumin Level 2.9 g/dL (3.5-5.1); Alkaline Phosphatase 92 U/L (38-126); Anion Gap 7 mmol/L (8-16); Aspartate Amino Transferase 24 U/L (14-36); Bilirubin,Total 0.4 mg/dL (0.2-1.3); Blood Urea Nitrogen 5 mg/dL (7-17); Carbon Dioxide 29 mmol/L (22-30); Chloride 102 mmol/L (98-107); Estimated CRCL calculation 47 ml/min; Estimated Glomerular Filt Rate > 60; Glucose 124 mg/dL (65-110); Potassium 3.1 mmol/L (3.4-5.0); Sodium 138 mmol/L (137-145)
--- NOTE | 2021-08-21 08:00 | PM.IMPN ---
Progress Note: A&P Assessment and Plan (1) Sepsis: Code(s): A41.9 - Sepsis, unspecified organism Status: Acute Assessment and Plan: Sepsis is present on admission supported by fever, bandemia, and leukocytosis. Presumably due to septic joint. While the patient has had diarrhea consistent with possible ulcerative colitis flare, her abdominal exam has been benign. Lactic acid level is within normal limits. Her vital signs are stable. joint cultures NGTD Get blood cultures Continue antibiotics WBC 17.0 Trend labs Continue monitoring. (2) Septic joint of left knee joint: Qualifiers: Septic arthritis organism: due to unspecified organism Qualified Code(s): M00.9 - Pyogenic arthritis, unspecified Code(s): M00.9 - Pyogenic arthritis, unspecified Status: Acute Assessment and Plan: Working diagnosis is septic left knee joint Synovial fluid analysis showed bloody appearance, elevated neutrophils 95% and no crystals seen. Patient seen by Dr. Welch today and recommend continuing broad-spectrum antibiotics. Monitoring labs and waiting for culture results. Cultures show no growth to date Continue IV empiric vancomycin and Zosyn #2, change to cefepime and vanco to protect kidneys Analgesics available as needed. Continue monitoring (3) Effusion, left knee: Code(s): M25.462 - Effusion, left knee Status: Acute Assessment and Plan: See above (4) Diarrhea: Code(s): R19.7 - Diarrhea, unspecified Status: Acute Assessment and Plan: Patient has had several episodes of diarrhea daily for the last 2 weeks which she has attributed to her ulcerative colitis. She has not noticed any blood or mucus in the stool and denies abdominal pain. She has not had sick contacts, recent travel, or recent antibiotic use. (5) Ulcerative colitis: Code(s): K51.90 - Ulcerative colitis, unspecified, without complications Status: Acute Assessment and Plan: Hold mesalamine for now pending confirmation of septic joint. (6) Hypertension: Code(s): I10 - Essential (primary) hypertension Status: Acute Assessment and Plan: Blood pressures were reviewed and they are stable, 116/50 Her antihypertensives will be reviewed and resumed as appropriate. (7) Prediabetes: Code(s): R73.03 - Prediabetes Status: Acute Assessment and Plan: Hold metformin while hospitalized. Continue monitoring ACHS. Hypoglycemic protocol. A1c 6.5%. (8) Knee effusion, right: Code(s): M25.461 - Effusion, right knee Status: Acute Assessment and Plan: RT knee xray show effusion 45cc aspirated Await testing Continue antibiotics Ortho on board Time Spent With Patient Time with patient: Greater than 35 minutes Subjective Date/time seen: 08/21/21 0800 Interval history: Date of service 08/19/2021: Patient is still having pain, warmth, decreased range of motion of her left knee which began yesterday causing come to the ER. She denies any fevers, chills. She otherwise has not had any recent dental work, chest pain, shortness of breath, cough, nausea, vomiting, abdominal pain, leg swelling, calf pain, recent falls, recent trauma or any other abnormality. She is eating and drinking without any issues. Date of service 08/20/21 Patient is lying in bed on her side. Patient stated that she is able to bend her legs but she sleeps with a pillow between. She stated that her knees do hurt it is probably from inactivity. She also stated that she has colitis and normally gets diarrhea which she does have. Appetite it is good however she is not having either. She denies any bleeding along with chest pain, shortness of breath, nausea, vomiting, abdominal pain, headache. Date of Service 08/21/21 0800 Patient is lying in bed. Patient states that she is feeling okay. She said her knees do not hurt as
[2021-08-21] MEDS: amLODIPine BESYLATE 5 MG TABLET PO (08:24)
[2021-08-21] MEDS: CYANOCOBALAMIN 500 MCG TABLET PO (08:24)
[2021-08-21] MEDS: FERROUS SULFATE 324 MG TABLET PO (08:24)
[2021-08-21] MEDS: METOPROLOL TARTRATE 50 MG TAB PO ×2 (08:25→20:07)
[2021-08-21] MEDS: THERAPEUTIC MULTIVITAMINS/MINERALS TAB (*BKC) 1 TABLET PO (08:25)
[2021-08-21] MEDS: DIPHENOXYLATE/ATROPINE (*CRX) 2.5 MG TABLET 1 TABLET PO ×2 (08:28→17:07)
[2021-08-21 09:16] LABS: Glucose Point of Care 167 mg/dl (65-105)
--- NOTE | 2021-08-21 11:01 | PM.PNORT ---
Progress Note: A&P Assessment and Plan (1) Septic joint of left knee joint: Qualifiers: Septic arthritis organism: due to unspecified organism Qualified Code(s): M00.9 - Pyogenic arthritis, unspecified Code(s): M00.9 - Pyogenic arthritis, unspecified Status: Acute (2) Effusion, left knee: Code(s): M25.462 - Effusion, left knee Status: Acute (3) Knee effusion, right: Code(s): M25.461 - Effusion, right knee Status: Acute Assessment and Plan: No significant change on exam of left knee today. No increased effusion requiring aspiration. Right knee with large effusion and pain today. Aspiration today. 45 cc Cloudy fluid aspirated today. Differential includes infection, gout, or pseudo gout. Ordering synovial fluid cell count, crystals, cultures today. Awaiting results. Left knee cultures show no growth to date. Awaiting final cultures. Continue antibiotics. Afebrile today. Will order xray of right knee today. Subjective Subjective Date/Time Seen: 08/21/21 11:01 Patient complaining of worsening right knee pain and swelling today. Right worse then left today. Also left knee pain. Warmth in both knees. Pain radiating up her thigh. Mild left calf pain. No other complaints. Cultures show no growth at this time. Patient was admitted through the ER on 08/18/21 with concerns for septic arthritis in the left knee. Complained of 2 days of inability to bear weight, swelling, warmth, fever, and diarrhea. In the ER, her knee was aspirated and found to have bloody fluid with yellow purulent particulate matter. She has a history of ulcerative colitis and gout in her foot in the past. Complained of tenderness to touch to the left knee, right knee pain, and diarrhea. ESR and CRP are elevated. Anaerobic cultures pending. Gram stain showed no growth and many WBC. 95 Neutrophils. No crystals seen. She has received IV Zosyn and Vancomycin. 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 Doppler negative for DVT on the left. Exam Narrative: Pleasant 76-year-old female. Hard of hearing. Lying in bed cofortably. Vital signs stable. Comfortable. Alert orient x3. Shows fair insight. Left knee: significant warmth. Mild erythema. Diffuse exquisite tenderness. Painful range of motion for 10? to 30?. No varus or valgus deformity. Mild effusion. Severe synovitis. No significant change since previous day. Right knee: warmth, No erythema, Diffuse exquisite tenderness. Painful ROM. No obvious deformity. Painful range of motion for 10? to 30?. No varus or valgus deformity. Large effusion. Ankle examination benign. Neurovascular intact. No edema. Objective Data Vital Signs Vital Signs: Vital Signs - 24 hr 08/20/21 14:00 08/20/21 20:32 08/20/21 20:57 Temperature 98.5 F 97.1 F L Pulse Rate 76 78 80 Respiratory Rate 18 20 Blood Pressure 116/50 L 140/54 L Pulse Oximetry 94 97 08/21/21 00:19 08/21/21 04:03 08/21/21 08:25 Temperature 97.7 F 97 F L Pulse Rate 83 75 77 Respiratory Rate 22 H 20 Blood Pressure 151/63 H 123/51 L Pulse Oximetry 94 96 Intake/Output Intake/Output: Intake & Output 08/18/21 08/19/21 08/20/21 08/21/21 23:59 23:59 23:59 23:59 Intake Total 50 4460 1720 840 Output Total 2250 200 1200 Balance 50 2210 1520 -360 Meds/Results Medications: Active Medications Generic Name Dose Route Start Last Admin Trade Name Freq PRN Reason Stop Dose Admin Acetaminophen 650 mg 08/18/21 18:32 Acetaminophen 325 Mg Tablet PO Q4H PRN Mild Pain (1-3) or Fever Hydrocodone Bitart/Acetaminophen 1 tab 08/18/21 18:32 08/21/21 02:49 Hydrocodone/Acetaminophen (*Crx) 5-325 Mg Tablet PO 1 tab Q4H PRN Administration Pain Rated 4-6 Amlodipine Besylate 5 mg 08/19/21 09:00 08/21/21 08:24 Amlodipine Besylate 5 Mg Tablet PO 5 mg DAILY AMY Administration Cyanocobalamin 500 mcg
--- NOTE | 2021-08-21 11:09 | PM.OP ---
Procedure Note - Brief Procedure Note - Brief Date of procedure: 08/21/21 <CHAMP Rock - Last Filed: 08/21/21 12:25> 08/21/21 <Bimal Welch MD - Last Filed: 08/21/21 15:47> Pre-op diagnosis: Septic Arthritis <CHAMP Rock - Last Filed: 08/21/21 12:25> Description of procedure: I was present for the procedure. Bimal Welch MD. <Bimal Welch MD - Last Filed: 08/21/21 15:47> Surgeon: CHAMP Rock Joint Aspiration/Injection Right knee: Pre-procedure care: Consent was obtained, Procedures/risks were explained, Questions were answered, Correct patient identified and Correct side and site confirmed Position: Laying Site Prepped: chlorhexidine and povidone-iodine Injection Details right arthrocentesis major joint Knee joint Manual palpation Fluid: Cloudy serous fluid Fluid Withdrawn (mL): 45 cc Sterile Dressing: [place] and Adhesive Post Procedure: Patient tolerated the procedure well <CHAMP Rock - Last Filed: 08/21/21 12:25>
[2021-08-21 11:53] LABS: Glucose Point of Care 131 mg/dl (65-105)
[2021-08-21] MEDS: POTASSIUM CHLORIDE 20 MEQ TABLET 40 MEQ PO (14:36)
[2021-08-21 16:36] LABS: Appearance Synovial Fluid Cloudy (Clear); Color Synovial Fluid Yellow (Colorless); Lymphocytes Synovial Fluid 1 %; Macrophages Synovial Fluid 3 %; Neutrophils Synovial Fluid 96 % (0-25); Nucleated Cell Synovial Fluid 12099 /uL (0-200); RBC Synovial Fluid 7035 /uL (0-0); Source Synovial Fluid Synovial fluid
[2021-08-21 16:49] LABS: Crystals Synovial Fluid Few Cppd (None Seen)
[2021-08-21] MEDS: PANTOPRAZOLE 40 MG TABLET PO (17:07)
[2021-08-21] MEDS: PRAVASTATIN SODIUM 20 MG TABLET 40 MG PO (17:07)
[2021-08-21 17:22] LABS: Glucose Point of Care 138 mg/dl (65-105)
--- NOTE | 2021-08-21 17:22 | PC.NURSE ---
On 08/21/21 the student Nu Angeles, provided care and completed [facility] hospital documentation on this patient. I have reviewed the student's documentation and agree with the plan of care.
[2021-08-21 20:36] LABS: Glucose Point of Care 120 mg/dl (65-105)
[2021-08-21 21:23] LABS: Vancomycin Trough 5.8 ug/mL (10.0-20.0)
[2021-08-22] VITALS (10 sets, daily range): BP systolic 132–148; BP diastolic 50–60; PULSE 66–87; RESP 16–18; TEMP 36.1–37.9; O2SAT 94–100
[2021-08-22] MEDS: ACETAMINOPHEN 325 MG TABLET 650 MG PO (00:28)
[2021-08-22 08:23] LABS: Glucose Point of Care 118 mg/dl (65-105)
[2021-08-22 08:23] LABS: Glucose Point of Care 120 mg/dl (65-105)
[2021-08-22] MEDS: amLODIPine BESYLATE 5 MG TABLET PO (08:49)
[2021-08-22] MEDS: THERAPEUTIC MULTIVITAMINS/MINERALS TAB (*BKC) 1 TABLET PO (08:49)
[2021-08-22] MEDS: FERROUS SULFATE 324 MG TABLET PO (08:49)
[2021-08-22] MEDS: CYANOCOBALAMIN 500 MCG TABLET PO (08:49)
[2021-08-22] MEDS: METOPROLOL TARTRATE 50 MG TAB PO ×2 (08:50→20:47)
[2021-08-22] MEDS: DIPHENOXYLATE/ATROPINE (*CRX) 2.5 MG TABLET 1 TABLET PO ×2 (08:50→16:43)
[2021-08-22] MEDS: methylPREDNISolone SOD SUCC 40 MG VIAL 20 MG IV PUSH (08:50)
--- NOTE | 2021-08-22 10:00 | PM.IMPN ---
Progress Note: A&P Assessment and Plan (1) Sepsis: Code(s): A41.9 - Sepsis, unspecified organism Status: Acute Assessment and Plan: Sepsis is present on admission supported by fever, bandemia, and leukocytosis. Presumably due to septic joint. While the patient has had diarrhea consistent with possible ulcerative colitis flare, her abdominal exam has been benign. Lactic acid level is within normal limits. Her vital signs are stable. joint cultures NGTD blood cultures NGTD Continue antibiotics WBC 16.0 Trend labs Continue monitoring. (2) Septic joint of left knee joint: Qualifiers: Septic arthritis organism: due to unspecified organism Qualified Code(s): M00.9 - Pyogenic arthritis, unspecified Code(s): M00.9 - Pyogenic arthritis, unspecified Status: Acute Assessment and Plan: Working diagnosis is septic left knee joint Synovial fluid analysis showed bloody appearance, elevated neutrophils 95% and no crystals seen. Patient seen by Dr. Welch today and recommend continuing broad-spectrum antibiotics. Monitoring labs and waiting for culture results. Cultures show no growth to date Change Cefepime and vanco Day 3 Analgesics available as needed. Continue monitoring (3) Effusion, left knee: Code(s): M25.462 - Effusion, left knee Status: Acute Assessment and Plan: See above (4) Diarrhea: Code(s): R19.7 - Diarrhea, unspecified Status: Acute Assessment and Plan: Patient has had several episodes of diarrhea daily for the last 2 weeks which she has attributed to her ulcerative colitis. She has not noticed any blood or mucus in the stool and denies abdominal pain. She has not had sick contacts, recent travel, or recent antibiotic use. (5) Ulcerative colitis: Code(s): K51.90 - Ulcerative colitis, unspecified, without complications Status: Acute Assessment and Plan: Consider restarting mesalamine for now pending confirmation of septic joint. Probably cause (6) Hypertension: Code(s): I10 - Essential (primary) hypertension Status: Acute Assessment and Plan: Blood pressures were reviewed and they are stable, 139/58 Her antihypertensives will be reviewed and resumed as appropriate. (7) Prediabetes: Code(s): R73.03 - Prediabetes Status: Acute Assessment and Plan: Hold metformin while hospitalized. Continue monitoring ACHS. Hypoglycemic protocol. A1c 6.5%. (8) Knee effusion, right: Code(s): M25.461 - Effusion, right knee Status: Acute Assessment and Plan: RT knee xray show effusion 45cc aspirated Did show some crystals, neutrophils, and RBC Cultures continue to pending Await testing Continue antibiotics Ortho on board Time Spent With Patient Time with patient: Greater than 35 minutes Subjective Date/time seen: 08/22/21 1000 Interval history: Date of service 08/19/2021: Patient is still having pain, warmth, decreased range of motion of her left knee which began yesterday causing come to the ER. She denies any fevers, chills. She otherwise has not had any recent dental work, chest pain, shortness of breath, cough, nausea, vomiting, abdominal pain, leg swelling, calf pain, recent falls, recent trauma or any other abnormality. She is eating and drinking without any issues. Date of service 08/20/21 Patient is lying in bed on her side. Patient stated that she is able to bend her legs but she sleeps with a pillow between. She stated that her knees do hurt it is probably from inactivity. She also stated that she has colitis and normally gets diarrhea which she does have. Appetite it is good however she is not having either. She denies any bleeding along with chest pain, shortness of breath, nausea, vomiting, abdominal pain, headache. Date of Service 08/21/21 0800 Patient is lying in bed. Patient states th
[2021-08-22 10:46] LABS: Alanine Aminotransferase 19 U/L (4-35); Albumin Level 3.2 g/dL (3.5-5.1); Alkaline Phosphatase 96 U/L (38-126); Anion Gap 7 mmol/L (8-16); Aspartate Amino Transferase 26 U/L (14-36); Bilirubin,Total 0.4 mg/dL (0.2-1.3); Blood Urea Nitrogen 5 mg/dL (7-17); Calcium 8.5 mg/dL (8.4-10.2); Carbon Dioxide 29 mmol/L (22-30); Chloride 104 mmol/L (98-107); Estimated CRCL calculation 53 ml/min; Estimated Glomerular Filt Rate > 60; Glucose 157 mg/dL (65-110); Potassium 3.3 mmol/L (3.4-5.0); Sodium 140 mmol/L (137-145)
[2021-08-22 10:47] LABS: Uric Acid 4.8 mg/dL (2.5-7.5)
[2021-08-22 10:51] LABS: Basophils Percent Auto 0.3 % (0.2-1.2); Eosinophils Absolute Auto 0.1 K/mm3 (0-0.3); Eosinophils Percent Auto 0.9 % (0-4.4); Hematocrit 35.1 % (37.0-47.0); Hemoglobin 11.4 g/dL (12.0-15.0); Immature Granulocyte Absolute 0.13 K/mm3 (0.00-0.031); Immature Granulocyte Percent A 0.8 % (0-0.5); Lymphocytes Absolute Auto 1.13 K/mm3 (0.9-3.2); Lymphocytes Percent Auto 7.1 % (18.3-44.2); Mean Corpuscular HGB Conc 32.5 g/dl (32-36); Mean Corpuscular Hemoglobin 28.8 pg (26-34); Mean Corpuscular Volume 88.6 fl (80-100); Mean Platelet Volume 8.9 fl (7.4-10.4); Monocytes Absolute Auto 0.6 K/mm3 (0.1-0.6); Monocytes Percent Auto 3.6 % (2.6-8.5); Neutrophils Percent Auto 87.3 % (45.5-73.1); Platelet Count Result 370 k/mm3 (150-375); Red Blood Count 3.96 M/mm3 (4.2-5.4); Red Cell Distribution Width 14.2 % (11.5-14.5)
[2021-08-22 11:31] LABS: Glucose Point of Care 157 mg/dl (65-105)
--- NOTE | 2021-08-22 14:06 | PM.PNORT ---
Progress Note: A&P Assessment and Plan (1) Effusion, left knee: Code(s): M25.462 - Effusion, left knee Status: Acute (2) Knee effusion, right: Code(s): M25.461 - Effusion, right knee Status: Acute (3) Pseudogout of knee: Code(s): M11.269 - Other chondrocalcinosis, unspecified knee Status: Acute Assessment and Plan: Right knee synovial fluid analysis came back with cppd crystals. Likely pseudogout flair up in both knees. Pain getting better today. Spoke with Hospitalist today. Will continue to follow for improvement. Likely not septic joint on the left. Cultures have all come back negative. Reviewed right knee xray showing moderate tricompartment arthritis predominantly in the patellofemoral joint. I recommend a steroid injection in both knees today. Risks, benefits, and alternatives to steroid injection discussed with patient. Patient tolerated injections well. Patient may follow up in office as needed. She may need to speak with her PCP regarding a daily prophylactic medication for pseudogout. Subjective Subjective Date/Time Seen: 08/22/21 14:06 Pain in both knees improving today. Complains of persistent diarrhea. No other complaints at this time. Review of Systems Review of Systems: All systems reviewed & are unremarkable except as noted in HPI and below Exam Narrative: Pleasant 76-year-old female. Hard of hearing. Lying in bed cofortably. Vital signs stable. Comfortable. Alert orient x3. Shows fair insight. Left knee: warmth. Mild erythema. Diffuse exquisite tenderness. Painful range of motion for 10? to 30?. No varus or valgus deformity. Mild effusion. Moderate synovitis. No significant change since previous day. Right knee: warmth, No erythema, Diffuse exquisite tenderness. Painful ROM. No obvious deformity. Painful range of motion for 10? to 30?. No varus or valgus deformity. Moderate effusion. Ankle examination benign. Neurovascular intact. No edema. Objective Data Vital Signs Vital Signs: Vital Signs - 24 hr 08/21/21 18:00 08/21/21 20:07 08/21/21 20:43 Temperature 98.6 F 99.1 F Pulse Rate 82 73 73 Respiratory Rate 18 20 20 Blood Pressure 155/72 H 137/62 Pulse Oximetry 94 100 100 08/22/21 00:16 08/22/21 00:28 08/22/21 01:25 Temperature 100.2 F H 100.2 F H 99.2 F Pulse Rate 73 Respiratory Rate 18 Blood Pressure 148/57 H Pulse Oximetry 94 08/22/21 05:13 08/22/21 08:50 Temperature 97 F L Pulse Rate 69 87 Respiratory Rate 18 Blood Pressure 139/58 L Pulse Oximetry 97 Intake/Output Intake/Output: Intake & Output 08/19/21 08/20/21 08/21/21 08/22/21 23:59 23:59 23:59 23:59 Intake Total 4460 1720 2520 440 Output Total 2250 200 1700 1100 Balance 2210 1520 820 -660 Meds/Results Medications: Active Medications Generic Name Dose Route Start Last Admin Trade Name Freq PRN Reason Stop Dose Admin Acetaminophen 650 mg 08/18/21 18:32 08/22/21 00:28 Acetaminophen 325 Mg Tablet PO 650 mg Q4H PRN Administration Mild Pain (1-3) or Fever Hydrocodone Bitart/Acetaminophen 1 tab 08/18/21 18:32 08/21/21 02:49 Hydrocodone/Acetaminophen (*Crx) 5-325 Mg Tablet PO 1 tab Q4H PRN Administration Pain Rated 4-6 Amlodipine Besylate 5 mg 08/19/21 09:00 08/22/21 08:49 Amlodipine Besylate 5 Mg Tablet PO 5 mg DAILY AMY Administration Ciprofloxacin 500 mg 08/22/21 14:05 Ciprofloxacin 500 Mg Tab PO Q12HR AMY Cyanocobalamin 500 mcg 08/19/21 09:00 08/22/21 08:49 Cyanocobalamin 500 Mcg Tablet PO 500 mcg DAILY AMY Administration Dextrose 12.5 gm 08/19/21 08:07 Dextrose 50% 25 Gm/50 Ml Syringe IV PUSH PRN PRN Hypoglycemia Protocol Diphenoxylate HCl/Atropine 1 tablet 08/19/21 09:00 08/22/21 08:50 Diphenoxylate/Atropine (*Crx) 2.5 Mg Tablet PO 1 tablet BID AMY Administration Ferrous Sulfate 324 mg 08/19/21 08:00 08/22/21 08:49 Ferrous Sulfate
[2021-08-22] MEDS: methylPREDNISolone ACETATE 80 MG/ML VIAL IM (15:17)
[2021-08-22] MEDS: methylPREDNISolone ACETATE 40 MG/ML VIAL 80 MG IM (15:17)
[2021-08-22] MEDS: metroNIDAZOLE 250 MG TABLET 500 MG PO ×2 (15:18→16:44)
[2021-08-22 16:40] LABS: Glucose Point of Care 193 mg/dl (65-105)
[2021-08-22] MEDS: CIPROFLOXACIN 500 MG TAB PO (16:43)
[2021-08-22] MEDS: PANTOPRAZOLE 40 MG TABLET PO (16:44)
[2021-08-22] MEDS: PRAVASTATIN SODIUM 20 MG TABLET 40 MG PO (16:44)
[2021-08-22 21:21] LABS: Glucose Point of Care 194 mg/dl (65-105)
[2021-08-23] MEDS: metroNIDAZOLE 250 MG TABLET 500 MG PO ×3 (00:29→11:45)
[2021-08-23 02:30] VITALS: BP 130/70; PULSE 65; RESP 20; TEMP 36.2; O2SAT 98
[2021-08-23 06:00] VITALS: BP 128/63; PULSE 68; RESP 20; TEMP 36.3; O2SAT 98
[2021-08-23] MEDS: CIPROFLOXACIN 500 MG TAB PO (06:40)
[2021-08-23 07:02] LABS: Alanine Aminotransferase 18 U/L (4-35); Alkaline Phosphatase 93 U/L (38-126); Anion Gap 9 mmol/L (8-16); Aspartate Amino Transferase 20 U/L (14-36); Bilirubin,Total 0.2 mg/dL (0.2-1.3); Blood Urea Nitrogen 10 mg/dL (7-17); Calcium 8.8 mg/dL (8.4-10.2); Carbon Dioxide 27 mmol/L (22-30); Chloride 103 mmol/L (98-107); Estimated CRCL calculation 47 ml/min; Estimated Glomerular Filt Rate > 60; Glucose 208 mg/dL (65-110); Magnesium 2.1 mg/dL (1.6-2.3); Potassium 3.6 mmol/L (3.4-5.0); Sodium 139 mmol/L (137-145)
[2021-08-23 07:43] LABS: Basophils Percent Auto 0.2 % (0.2-1.2); Hematocrit 35.3 % (37.0-47.0); Hemoglobin 11.5 g/dL (12.0-15.0); Immature Granulocyte Absolute 0.17 K/mm3 (0.00-0.031); Immature Granulocyte Percent A 0.8 % (0-0.5); Lymphocytes Absolute Auto 1.33 K/mm3 (0.9-3.2); Lymphocytes Percent Auto 6.5 % (18.3-44.2); Mean Corpuscular HGB Conc 32.6 g/dl (32-36); Mean Corpuscular Hemoglobin 29.3 pg (26-34); Mean Corpuscular Volume 89.8 fl (80-100); Mean Platelet Volume 9.2 fl (7.4-10.4); Monocytes Absolute Auto 0.5 K/mm3 (0.1-0.6); Monocytes Percent Auto 2.3 % (2.6-8.5); Neutrophils Absolute Auto 18.4 K/mm3 (1.3-6.7); Neutrophils Percent Auto 90.2 % (45.5-73.1); Platelet Count Result 391 k/mm3 (150-375); Red Blood Count 3.93 M/mm3 (4.2-5.4); Red Cell Distribution Width 14.4 % (11.5-14.5); White Blood Count 20.4 K/mm3 (4.5-10.0)
[2021-08-23 08:02] LABS: Glucose Point of Care 194 mg/dl (65-105)
[2021-08-23] MEDS: THERAPEUTIC MULTIVITAMINS/MINERALS TAB (*BKC) 1 TABLET PO (08:24)
[2021-08-23] MEDS: amLODIPine BESYLATE 5 MG TABLET PO (08:24)
[2021-08-23 08:25] VITALS: PULSE 76
[2021-08-23] MEDS: METOPROLOL TARTRATE 50 MG TAB PO (08:25)
[2021-08-23] MEDS: predniSONE 20 MG TABLET PO (08:25)
[2021-08-23] MEDS: CYANOCOBALAMIN 500 MCG TABLET PO (08:25)
[2021-08-23] MEDS: FERROUS SULFATE 324 MG TABLET PO (08:26)
[2021-08-23] MEDS: DIPHENOXYLATE/ATROPINE (*CRX) 2.5 MG TABLET 1 TABLET PO (08:26)
[2021-08-23 08:30] VITALS: BP 144/68; PULSE 76
--- NOTE | 2021-08-23 08:45 | PM.DS ---
DS: Admitting Diagnosis Discharge Date 08/23/21 0845 Admitting Diagnosis Bilateral joint effusion DS: Discharge Diagnosis Discharge Diagnosis (1) Sepsis: Code(s): A41.9 - Sepsis, unspecified organism Status: Acute Assessment and Plan: Sepsis is present on admission supported by fever, bandemia, and leukocytosis. Presumably due to septic joint. While the patient has had diarrhea consistent with possible ulcerative colitis flare, her abdominal exam has been benign. Lactic acid level is within normal limits. Her vital signs are stable. joint cultures NGTD blood cultures NGTD Continue antibiotics WBC 20.4 Trend labs Continue monitoring. (2) Septic joint of left knee joint: Qualifiers: Septic arthritis organism: due to unspecified organism Qualified Code(s): M00.9 - Pyogenic arthritis, unspecified Code(s): M00.9 - Pyogenic arthritis, unspecified Status: Acute Assessment and Plan: Working diagnosis is septic left knee joint Synovial fluid analysis showed bloody appearance, elevated neutrophils 95% and no crystals seen. Patient seen by Dr. Welch today and recommend continuing broad-spectrum antibiotics. Monitoring labs and waiting for culture results. Cultures show no growth to date Change Cefepime and vanco Day 4 Analgesics available as needed. Continue monitoring (3) Effusion, left knee: Code(s): M25.462 - Effusion, left knee Status: Acute Assessment and Plan: See above (4) Diarrhea: Code(s): R19.7 - Diarrhea, unspecified Status: Acute Assessment and Plan: Patient has had several episodes of diarrhea daily for the last 2 weeks which she has attributed to her ulcerative colitis. She has not noticed any blood or mucus in the stool and denies abdominal pain. She has not had sick contacts, recent travel, or recent antibiotic use. (5) Ulcerative colitis: Code(s): K51.90 - Ulcerative colitis, unspecified, without complications Status: Acute Assessment and Plan: Consider restarting mesalamine for now pending confirmation of septic joint. Probably cause (6) Hypertension: Code(s): I10 - Essential (primary) hypertension Status: Acute Assessment and Plan: Blood pressures were reviewed and they are stable, 125/64 Her antihypertensives will be reviewed and resumed as appropriate. (7) Prediabetes: Code(s): R73.03 - Prediabetes Status: Acute Assessment and Plan: Hold metformin while hospitalized. Continue monitoring ACHS. Hypoglycemic protocol. A1c 6.5%. (8) Knee effusion, right: Code(s): M25.461 - Effusion, right knee Status: Acute Assessment and Plan: RT knee xray show effusion 45cc aspirated Did show some crystals, neutrophils, and RBC Cultures continue to pending Await testing Continue antibiotics Ortho on board (9) Pseudogout of left knee: Code(s): M11.262 - Other chondrocalcinosis, left knee Status: Acute Assessment and Plan: See above (10) Pseudogout of knee: Qualifiers: Laterality: right Qualified Code(s): M11.261 - Other chondrocalcinosis, right knee Code(s): M11.269 - Other chondrocalcinosis, unspecified knee Status: Acute Assessment and Plan: See above (11) Leukocytosis: Code(s): D72.829 - Elevated white blood cell count, unspecified Status: Acute Assessment and Plan: WBC is 20.4 Been on antibiotics since antibiotics Denies SOB, cough, urinary problems, or any other concerning infectious sources She does have diarrhea, however, she claims this is unchanged findings and seems to be normal for her Probably elevated from the steroids DS: Summary Hospital Course Hospital Course: Patient is 76-year-old female with a past medical history of hypertension, anemia, ulcerative colitis and diabetes who
[2021-08-23 10:00] VITALS: BP 125/64; PULSE 68; RESP 16; TEMP 36.7; O2SAT 98
--- NOTE | 2021-08-23 11:00 | P.PNIM_ITS ---
Progress Note: A&P Assessment and Plan (1) Sepsis: Code(s): A41.9 - Sepsis, unspecified organism <Ej LutzBLANK - Last Filed: 08/23/21 12:17> Status: Acute <Ej Lutz BLANK - Last Filed: 08/23/21 12:17> Assessment and Plan: Sepsis is present on admission supported by fever, bandemia, and leukocytosis. Presumably due to septic joint. While the patient has had diarrhea consistent with possible ulcerative colitis flare, her abdominal exam has been benign. Lactic acid level is within normal limits. Her vital signs are stable. * joint cultures NGTD * blood cultures NGTD * Continue antibiotics * WBC 20.4 * Trend labs Continue monitoring. <Ej LutzBLANK - Last Filed: 08/23/21 12:17> (2) Septic joint of left knee joint: Qualifiers: Septic arthritis organism: due to unspecified organism Qualified Code(s): M00.9 - Pyogenic arthritis, unspecified <Ej LutzBLANK - Last Filed: 08/23/21 12:17> Code(s): M00.9 - Pyogenic arthritis, unspecified <Ej LutzBLANK - Last Filed: 08/23/21 12:17> Status: Acute <Ej LutzBLANK - Last Filed: 08/23/21 12:17> Assessment and Plan: Working diagnosis is septic left knee joint * Synovial fluid analysis showed bloody appearance, elevated neutrophils 95% and no crystals seen. * Patient seen by Dr. Welch today and recommend continuing broad-spectrum antibiotics. Monitoring labs and waiting for culture results. * Cultures show no growth to date * Change Cefepime and vanco Day 4 * Analgesics available as needed. Continue monitoring <Ej LutzBLANK - Last Filed: 08/23/21 12:17> (3) Effusion, left knee: Code(s): M25.462 - Effusion, left knee <Ej PalafoxBLANK marrero - Last Filed: 08/23/21 12:17> Status: Acute <Ej PalafoxBLANK marrero - Last Filed: 08/23/21 12:17> Assessment and Plan: See above <Ej Lutz BLANK - Last Filed: 08/23/21 12:17> (4) Diarrhea: Code(s): R19.7 - Diarrhea, unspecified <Ej Lutz BLANK - Last Filed: 08/23/21 12:17> Status: Acute <Ej Lutz BLANK - Last Filed: 08/23/21 12:17> Assessment and Plan: Patient has had several episodes of diarrhea daily for the last 2 weeks which she has attributed to her ulcerative colitis. She has not noticed any blood or mucus in the stool and denies abdominal pain. She has not had sick contacts, recent travel, or recent antibiotic use. <Ej LutzBLANK - Last Filed: 08/23/21 12:17> (5) Ulcerative colitis: Code(s): K51.90 - Ulcerative colitis, unspecified, without complications <Ej LuztBLANK - Last Filed: 08/23/21 12:17> Status: Acute <Ej LutzBLANK - Last Filed: 08/23/21 12:17> Assessment and Plan: Consider restarting mesalamine for now pending confirmation of septic joint. Probably cause <Ej LutzBLANK - Last Filed: 08/23/21 12:17> (6) Hypertension: Code(s): I10 - Essential (primary) hypertension <Ej PalafoxBLANK mrarero - Last Filed: 08/23/21 12:17> Status: Acute <Ej LutzBLANK - Last Filed: 08/23/21 12:17> Assessment and Plan: Blood pressures were reviewed and they are stable, 125/64 Her antihypertensives will be reviewed and resumed as appropriate. <Ej PalafoxBLANK marrero - Last Filed: 08/23/21 12:17> (7) Prediabetes: Code(s): R73.03 - Prediabetes <Ej PalafoxBLANK marrero - Last Filed: 08/23/21
--- NOTE | 2021-08-23 11:00 | PM.IMPN ---
Progress Note: A&P Assessment and Plan (1) Sepsis: Code(s): A41.9 - Sepsis, unspecified organism <Ej PalafoxBLANK marrero - Last Filed: 08/23/21 12:17> Status: Acute <Ej LutzSUNDEEPC - Last Filed: 08/23/21 12:17> Assessment and Plan: Sepsis is present on admission supported by fever, bandemia, and leukocytosis. Presumably due to septic joint. While the patient has had diarrhea consistent with possible ulcerative colitis flare, her abdominal exam has been benign. Lactic acid level is within normal limits. Her vital signs are stable. joint cultures NGTD blood cultures NGTD Continue antibiotics WBC 20.4 Trend labs Continue monitoring. <Ej PalafoxBLANK marrero - Last Filed: 08/23/21 12:17> (2) Septic joint of left knee joint: Qualifiers: Septic arthritis organism: due to unspecified organism Qualified Code(s): M00.9 - Pyogenic arthritis, unspecified <Ej PalafoxBLANK marrero - Last Filed: 08/23/21 12:17> Code(s): M00.9 - Pyogenic arthritis, unspecified <Ej PalafoxJOE marrero-C - Last Filed: 08/23/21 12:17> Status: Acute <Ej LutzSUNDEEPC - Last Filed: 08/23/21 12:17> Assessment and Plan: Working diagnosis is septic left knee joint Synovial fluid analysis showed bloody appearance, elevated neutrophils 95% and no crystals seen. Patient seen by Dr. Welch today and recommend continuing broad-spectrum antibiotics. Monitoring labs and waiting for culture results. Cultures show no growth to date Change Cefepime and vanco Day 4 Analgesics available as needed. Continue monitoring <Ej PalafoxSUNDEEP marreroC - Last Filed: 08/23/21 12:17> (3) Effusion, left knee: Code(s): M25.462 - Effusion, left knee <Ej ValentinoSavita LutzJOE marrero-C - Last Filed: 08/23/21 12:17> Status: Acute <Ej ValentinoBLANK Betancur - Last Filed: 08/23/21 12:17> Assessment and Plan: See above <Ej Lutz BLANK - Last Filed: 08/23/21 12:17> (4) Diarrhea: Code(s): R19.7 - Diarrhea, unspecified <Ej Lutz BLANK - Last Filed: 08/23/21 12:17> Status: Acute <Ej Lutz JOELilliamJose - Last Filed: 08/23/21 12:17> Assessment and Plan: Patient has had several episodes of diarrhea daily for the last 2 weeks which she has attributed to her ulcerative colitis. She has not noticed any blood or mucus in the stool and denies abdominal pain. She has not had sick contacts, recent travel, or recent antibiotic use. <Ej Lutz BLANK - Last Filed: 08/23/21 12:17> (5) Ulcerative colitis: Code(s): K51.90 - Ulcerative colitis, unspecified, without complications <Ej LutzBLANK - Last Filed: 08/23/21 12:17> Status: Acute <Ej Lutz BLANK - Last Filed: 08/23/21 12:17> Assessment and Plan: Consider restarting mesalamine for now pending confirmation of septic joint. Probably cause <Ej LutzBLANK - Last Filed: 08/23/21 12:17> (6) Hypertension: Code(s): I10 - Essential (primary) hypertension <Ej LutzBLANK - Last Filed: 08/23/21 12:17> Status: Acute <Ej Lutz BLANK - Last Filed: 08/23/21 12:17> Assessment and Plan: Blood pressures were reviewed and they are stable, 125/64 Her antihypertensives will be reviewed and resumed as appropriate. <Ej LutzBLANK - Last Filed: 08/23/21 12:17> (7) Prediabetes: Code(s): R73.03 - Prediabetes <Ej LutzBLANK - Last Filed: 08/23/21 12:17> Status: Acute <Ej LutzBLANK - Last Filed: 08/23/21 12:17> Assessment and Plan: Hold metformin while hospitalized. Continue monitoring ACHS. Hypoglycemic protocol. A1c 6.5%. <BLANK Enriquez - Last Filed: 08/23/21 12:17> (8) Knee effusion, right: Code(s): M25.461 - Effusion, right knee <BLANK Enriquez -
--- NOTE | 2021-08-23 11:21 | PM.PNORT ---
Progress Note: A&P Assessment and Plan (1) Effusion, left knee: Code(s): M25.462 - Effusion, left knee Status: Acute (2) Knee effusion, right: Code(s): M25.461 - Effusion, right knee Status: Acute (3) Pseudogout of knee: Qualifiers: Laterality: right Qualified Code(s): M11.261 - Other chondrocalcinosis, right knee Code(s): M11.269 - Other chondrocalcinosis, unspecified knee Status: Acute (4) Pseudogout of left knee: Code(s): M11.262 - Other chondrocalcinosis, left knee Status: Acute Assessment and Plan: Significant improvement today. No warmth. Effusions mild today. Steroid injections were diagnostic and therapeutic for pseudogout in both knees. Left knee was not likely septic. Right knee synovial fluid analysis came back with cppd crystals. Pain resolved today. Cultures have all come back negative. Patient may follow up in office as needed. She may need to speak with her PCP regarding a daily prophylactic medication for pseudogout. Subjective Subjective Date/Time Seen: 08/23/21 11:21 No pain in knees today. Patient states she is feeling significantly better. Swelling has decreased. No warmth. Still having diarrhea. Review of Systems Review of Systems: All systems reviewed & are unremarkable except as noted in HPI and below Exam Narrative: Pleasant 76-year-old female. Hard of hearing. Sitting up in a chair. Vital signs stable. Comfortable. Alert orient x3. Shows fair insight. Left knee: No warmth. No erythema. No tenderness. Range of motion for 10? to 90?. No varus or valgus deformity. Mild effusion. Right knee: No warmth, No erythema, No tenderness. No obvious deformity. Range of motion for 10? to 90?. No varus or valgus deformity. Mild effusion. Ankle examination benign. Neurovascular intact. No edema. Objective Data Vital Signs Vital Signs: Vital Signs - 24 hr 08/22/21 14:00 08/22/21 18:00 08/22/21 20:47 Temperature 97.0 F L 97.4 F L Pulse Rate 68 66 70 Respiratory Rate 18 18 Blood Pressure 138/54 L 132/50 L Pulse Oximetry 96 95 08/22/21 22:00 08/23/21 02:30 08/23/21 06:00 Temperature 97.2 F L 97.1 F L 97.3 F L Pulse Rate 73 65 68 Respiratory Rate 16 20 20 Blood Pressure 134/55 L 130/70 128/63 Pulse Oximetry 95 98 98 08/23/21 08:25 08/23/21 08:30 08/23/21 10:00 Temperature 98.1 F Pulse Rate 76 76 68 Respiratory Rate 16 Blood Pressure 144/68 H 125/64 Pulse Oximetry 98 Intake/Output Intake/Output: Intake & Output 08/20/21 08/21/21 08/22/21 08/23/21 23:59 23:59 23:59 23:59 Intake Total 1720 2520 2160 960 Output Total 200 1700 1600 380 Balance 1520 820 560 580 Meds/Results Medications: Active Medications Generic Name Dose Route Start Last Admin Trade Name Freq PRN Reason Stop Dose Admin Acetaminophen 650 mg 08/18/21 18:32 08/22/21 00:28 Acetaminophen 325 Mg Tablet PO 650 mg Q4H PRN Administration Mild Pain (1-3) or Fever Hydrocodone Bitart/Acetaminophen 1 tab 08/18/21 18:32 08/21/21 02:49 Hydrocodone/Acetaminophen (*Crx) 5-325 Mg Tablet PO 1 tab Q4H PRN Administration Pain Rated 4-6 Amlodipine Besylate 5 mg 08/19/21 09:00 08/23/21 08:24 Amlodipine Besylate 5 Mg Tablet PO 5 mg DAILY AMY Administration Ciprofloxacin 500 mg 08/22/21 18:00 08/23/21 06:40 Ciprofloxacin 500 Mg Tab PO 500 mg Q12H AMY Administration Cyanocobalamin 500 mcg 08/19/21 09:00 08/23/21 08:25 Cyanocobalamin 500 Mcg Tablet PO 500 mcg DAILY AYM Administration Dextrose 12.5 gm 08/19/21 08:07 Dextrose 50% 25 Gm/50 Ml Syringe IV PUSH PRN PRN Hypoglycemia Protocol Diphenoxylate HCl/Atropine 1 tablet 08/19/21 09:00 08/23/21 08:26 Diphenoxylate/Atropine (*Crx) 2.5 Mg Tablet PO 1 tablet BID AMY Administration Ferrous Sulfate 324 mg 08/19/21 08:00 08/23/21 08:26 Ferrous Sulfate 324 Mg Tablet PO 324 mg [place]
[2021-08-23 11:51] LABS: Glucose Point of Care 184 mg/dl (65-105)
--- NOTE | 2021-08-23 12:21 | PM.OP ---
Procedure Note - Brief Procedure Note - Brief Date of procedure: 08/23/21 Pre-op diagnosis: Septic Arthritis Surgeon: Date of procedure: 08/22/21 [place] Joint Injection Bilateral knees: Pre-procedure care: Consent was obtained, Procedures/risks were explained, Questions were answered, Correct patient identified and Correct side and site confirmed Position: Laying Site Prepped: chlorhexidine Injection Details Injection under manual palpation Injection: Depo-Medrol 80 Dressing: Bandage Post Procedure: Patient tolerated the procedure well
--- NOTE | 2021-08-23 14:59 | PC.NURSE ---
On 08/23/21, the student, [Ezekiel Boswell ], provided care and completed [facility] documentation on this patient. I have reviewed the student's documentation and agree with the findings.
--- NOTE | 2021-08-24 06:42 | WPDCDIQUERY2 ---
CDI Query Clarification Request Brief OP note for injection from 08/22 does not include which joint or which side. Please clarify which joint and which side or bilateral.
== END 2021-08-23 15:05 | disposition home or self-care (01) | DRG 872 ==
LOC: ANHED 18:29 → ANH2MED 20:10
PROVIDERS: Physician Assistant; Physician Assistant Surgical; Admitting Provider Family Medicine; Emergency Provider Emergency Medicine; PCP Internal Medicine; Visit Provider Nurse Practitioner
DX: A41.9 Sepsis, unspecified organism (principal); M00.9 Pyogenic arthritis, unspecified; K51.90 Ulcerative colitis, unspecified, without complications; M11.262 Other chondrocalcinosis, left knee; M11.261 Other chondrocalcinosis, right knee; M25.462 Effusion, left knee; M25.461 Effusion, right knee; Z20.822 Contact with and (suspected) exposure to COVID-19; K21.9 Gastro-esophageal reflux disease without esophagitis; I10 Essential (primary) hypertension; E78.5 Hyperlipidemia, unspecified; R73.03 Prediabetes; Z79.82 Long term (current) use of aspirin; Z79.84 Long term (current) use of oral hypoglycemic drugs
CPT/HCPCS: 20610; 36415; 71046; 73562; 80048; 80053; 80202; 81001; 82948; 83036; 83605; 83735; 84550; 85025; 85652; 86140; 87040; 87045; 87070; 87075; 87205; 87427; 89051; 89060; 93005; 93970; 96361; 96365; 96366; 96375; 97162; 97165; 99285; A9270; C9803; G0378; J0692; J1030; J1040; J2270; J2543; J2920; J3370; J7030; J7512; U0003; U0005

== ENCOUNTER 2022-05-14 13:52 | Outpatient (CLI) | payer MEDICARE, SELFPAY ==
[2022-05-19 21:12] LABS: TPMT Activity 17
== END 2022-05-14 13:53 | disposition home or self-care (01) ==
PROVIDERS: PCP Internal Medicine
DX: K51.919 Ulcerative colitis, unspecified with unspecified complications (principal)
CPT/HCPCS: 36415; 82657

== ENCOUNTER 2022-05-27 09:14 | Outpatient (CLI) | payer MEDICARE, SELFPAY ==
--- NOTE | ~2022-05-27 | MM_ITS ---
EXAMINATION: MM screening deloris BI w zachery HISTORY: Screening TECHNIQUE: Craniocaudal and mediolateral oblique 3-D tomosynthesis images were obtained and synthetic 2-D images were generated. CAD analysis was submitted and interpreted. COMPARISON: No prior mammogram is available for comparison at this institution. BREAST PARENCHYMAL COMPOSITION: The breasts are almost entirely fatty. FINDINGS: There is no evidence of suspicious mass, calcification, or architectural distortion to sugg est malignancy in either breast. There has been no suspicious interval change. IMPRESSION: 1. No mammographic evidence of malignancy. 2. Recommend routine screening mammography in one year. BI-RADS Category 1: Negative Reviewed, dictated and finalized at location [facility].
== END 2022-05-27 09:15 | disposition home or self-care (01) ==
LOC: ANHIMG 09:17
PROVIDERS: PCP Internal Medicine; Visit Provider Internal Medicine
DX: Z12.31 Encounter for screening mammogram for malignant neoplasm of breast (principal)
CPT/HCPCS: 77063; 77067

== ENCOUNTER → 2023-02-20 11:58 | Outpatient (CLI) | payer MEDICARE, SELFPAY ==
--- NOTE | ~2023-02-20 | US_ITS ---
US abdomen limited DATE: 02/20/2023 12:21 INDICATION: Liver nodule reported on CT examination and [place] TECHNIQUE: Real-time imaging of liver, pancreas, gallbladder COMPARISON: None FINDINGS: No gallstones or gallbladder wall thickening or pericholecystic fluid collection is evident . Negative sonographic Toribio's sign. The common bile duct measures 3.8 mm, normal. No hepatic space-occupying mass lesion is detected sonographically. No prior examinations are availab le for comparison. Normal hepatopedal portal venous flow direction. IMPRESSION: No significant abnormality demonstrated. No hepatic mass lesion is visualized. Consider C T abdomen examination given the history of previous report of liver mass on CT examination elsewhere. Reviewed, dictated and finalized at [facility]. Reviewed, dictated and finalized at location [facility]. IMPRESSION: No significant abnormality demonstrated. No hepatic mass lesion is visualized. Consider CT abdomen examination given the history of previous repor t of liver mass on CT examination elsewhere.
== END ==
PROVIDERS: PCP Family Medicine; Visit Provider Nurse Practitioner Family
DX: K76.89 Other specified diseases of liver (principal)
CPT/HCPCS: 76705

== ENCOUNTER 2023-06-03 13:11 | Inpatient (IN) | payer MEDICARE, SELFPAY ==
--- NOTE | ~2023-06-03 | CT_ITS ---
EXAMINATION: CTA brain carotid DATE: 06/05/2023 14:49 INDICATION: Transient ischemic attack. TECHNIQUE: Computed tomographic angiography (CTA) of the head was performed without and with 100 mL O mnipaque-350 intravenous contrast. CTA of the neck was performed with intravenous contrast. Automated exposure control and iterative reconstruction technique were employed. The dose-length product was 1 888.76 mGy-cm. Maximum intensity projection and volume rendered 3D-reconstructions were created by karina tadeo technologist on a separate workstation. COMPARISON: Head CT 06/03/2023, brain MRI 06/04/2023 FINDINGS: HEAD CTA: There are scattered areas of low attenuation in the cerebral white matter. There is no intr acranial hemorrhage, acute infarction, or abnormal intracranial mass lesion. The ventricles are hua l in size. The paranasal sinuses are clear. There are likely changes of right ocular lens replacement surgery. The mastoid air cells are normal. The vertebral arteries are codominant. There is no signif icant stenosis of basilar artery or the posterior cerebral arteries. The posterior communicating aime rahat are normal. There is no significant stenosis of the intracranial internal carotid arteries or an terior or middle cerebral arteries. Anterior communicating artery is normal. There is no aneurysm. NECK CTA: There are no pathologically enlarged lymph nodes. There is a 9 mm nodule in left thyroid lo be, likely not clinically significant. There is no significant stenosis of the vertebral arteries. Th ere is plaque in the proximal internal carotid arteries. There is 0% stenosis of the proximal right i nternal carotid artery relative to normal distal artery lumen diameter (NASCET criteria). There is 0% stenosis of the proximal left internal carotid artery relative to normal distal artery lumen diamete r. There is mild cervical spondylosis. There are old healed bilateral rib fractures. IMPRESSION: 1. Moderate nonspecific cerebral white matter disease, which likely represents chronic small vessel i schemic disease. 2. No aneurysm or significant intracranial arterial stenosis. 3. 0% stenosis of the proximal internal carotid arteries relative to normal distal artery lumen diame ters (NASCET criteria). Reviewed, dictated and finalized at location E. T SHOP ASSISTANT IMPRESSION: 1. Moderate nonspecific cerebral white matter disease, which likely represents chronic small vessel ischemic disease. 2. No aneurysm or significant intracranial arterial stenosis. 3. 0% stenosis of the proximal internal carotid arteries relative to normal dis hortensia artery lumen diameters (NASCET criteria).
--- NOTE | ~2023-06-03 | MR_ITS ---
EXAMINATION: MR brain/brain stem wo con DATE: 06/04/2023 10:34 INDICATION: Seizure versus transient ischemic episode TECHNIQUE: Magnetic resonance imaging (MRI) of the brain and brainstem was performed without intraven ous contrast. Sequences included sagittal and axial T1-weighted SE, axial diffusion-weighted FS SE, a xial 3D SWAN, axial T2-weighted FLAIR, and axial T2-weighted FSE. Postcontrast axial and coronal T1-w eighted SE was obtained. Apparent diffusion coefficient (ADC) maps were created. COMPARISON: Head CT dated 06/13/2023 FINDINGS: There are no areas of restricted diffusion to suggest acute infarction. No abnormal intracranial mass lesion. There are small foci of susceptibility artifact at the bilateral thalami without evident gustavo cification along the prior CT and which likely represent chronic blood products related to microhemor rhage such as in the setting of hypertension. There are scattered areas of nonspecific increased T2-w eighted signal intensity in the cerebral white matter, predominantly involving the deep and periventr icular white matter. There are no intraparenchymal signal abnormalities seen on the other pulse seque nces.. Symmetric prominence of the sulci consistent with mild age-appropriate diffuse cerebral volume loss. The ventricles are symmetric and normal in size. There are no abnormal extra-axial fluid colle ctions. Flow voids are seen in the cerebral arteries on the T2-weighted sequences consistent with the ir expected patency. Mild mucoperiosteal thickening the bilateral ethmoid sinuses. Changes of right i ntraocular lens replacement. Visualized orbits and soft tissues are unremarkable. IMPRESSION: 1. No acute intracranial process. 2. A few foci of susceptibility artifact at the bilateral thalami and with typical pattern for chroni c microhemorrhage in the setting of hypertension. 3. Age-related changes including mild diffuse volume loss and moderate scattered nonspecific white ma tter T2 hyperintensity consistent with chronic small vessel ischemic disease. Reviewed, dictated and finalized at location A. LY SIGN LANGUAGE INTERPRETER IMPRESSION: 1. No acute intracranial process. 2. A few foci of susceptibility artifact at the bilateral thalami and with typi gustavo pattern for chronic microhemorrhage in the setting of hypertension. 3. Age-related changes including mild diffuse volume loss and moderate scattere d nonspecific white matter T2 hyperintensity consistent with chronic small vess el ischemic disease.
--- NOTE | ~2023-06-03 | XR_ITS ---
EXAMINATION: XR chest 1V portable INDICATION: Headache, possible stroke TECHNIQUE: Portable AP chest at 1346 hours COMPARISON: 08/18/2021 FINDINGS: The lungs are free of acute opacities. No pleural effusion or pneumothorax. The cardiomedia stinal silhouette is stable. 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 IMPRESSION: 1. No acute cardiopulmonary abnormality. Reviewed, dictated and finalized at location L. TABLE FARM WORKER
--- NOTE | ~2023-06-03 | CT_ITS ---
EXAMINATION: CT brain wo con DATE: 06/03/2023 13:27 INDICATION: Stroke with speech deficits with difficulty finding words and nausea. TECHNIQUE: Computed tomography (CT) of the head was performed without intravenous contrast. Sagittal and coronal reconstructions were performed. The mA was adjusted according to patient size. Iterative reconstruction technique was employed. The dose-length product was 681.00 mGy-cm. COMPARISON: None FINDINGS: No acute intracranial hemorrhage, acute infarction or abnormal extra axial fluid collection. There is moderate scattered white matter hypoattenuation consistent with chronic small vessel ischemic diseas e. Symmetric prominence of the sulci consistent with mild age-appropriate diffuse cerebral volume los s. Ventricles are normal and symmetric. No mass/mass effect. Changes of right intraocular lens replac ement. The orbits, paranasal sinuses and mastoid air cells are normal. Intracranial calcified cerebra l atherosclerosis is noted. IMPRESSION: 1. No acute intracranial process. Per stroke protocol this result was discussed with Dr. Corcoran at 1: 27 PM 2. Age-related changes including mild diffuse volume loss and moderate scattered white matter hypoatt enuation consistent with chronic small vessel ischemic disease. Reviewed, dictated and finalized at location A. F NUCLEAR WEAPONS OFFICER IMPRESSION: 1. No acute intracranial process. Per stroke protocol this result was discussed with Dr. Corcoran at 1:27 PM 2. Age-related changes including mild diffuse volume loss and moderate scattere d white matter hypoattenuation consistent with chronic small vessel ischemic di sease.
--- NOTE | ~2023-06-03 | US_ITS ---
Procedure: Duplex Doppler examination of the bilateral carotids. Indication: TIA Technique: Real time, color-flow and pulse wave Doppler examination of the bilateral carotids was performed. Findings: Sommer scale ultrasonography of the right neck demonstrated moderate plaques at the right carotid bulb/ carotid bifurcation region. There was demonstration of normal color-flow and Doppler waveforms within the right common, internal and external carotid arteries. The peak systolic velocities in the right common, internal and external carotid arteries were demonstrated to be 78 cm/sec, 96 cm/sec and 119 c m/sec respectively. The right ICA/CCA ratio was 1.2.The proximal right internal carotid artery demons trates 0% stenosis relative to the normal distal artery lumen diameter. Sommer scale sonography of the left neck demonstrated moderate to large plaques at the left carotid bul b. There was demonstration of normal color-flow and wave forms within the left common, internal and e xternal carotid arteries. The peak systolic velocities in the left common, internal and external short tid arteries were demonstrated to be 61cm/sec, 223 cm/sec and 98 cm/sec respectively. The left ICA/CC A ratio was 3.6. The proximal left internal carotid artery demonstrates 0% stenosis relative to the n ormal distal artery lumen diameter. There was antegrade flow demonstrated in the bilateral vertebral arteries. Impression: Elevated velocity the distal left internal carotid artery appears to be related to vessel tortuosity. No visible plaque in this region. No definite hemodynamically significant stenosis identified, despi te moderate to large plaques at the bilateral carotid bulb regions. Antegrade flow in the bilateral vertebral arteries. Note: The methodology used is an indirect measurement validated against a direct method (such as the NASCET criteria) that compares diameters at the stenosis to the distal ICA. Reviewed, dictated and finalized at location M. K TRAVEL RESERVATIONS Impression: Elevated velocity the distal left internal carotid artery appears to be related to vessel tortuosity. No visible plaque in this region. No definite hemodynami temo significant stenosis identified, despite moderate to large plaques at the bilateral carotid bulb regions. Antegrade flow in the bilateral vertebral arteries. Note: The methodology used is an indirect measurement validated against a direct meth od (such as the NASCET criteria) that compares diameters at the stenosis to the distal ICA.
--- NOTE | 2023-06-03 13:19 | ECG_ITS ---
Measurements Intervals [place] Rate: 73 P: 27 OR: 160 QRS: 27 QRSD: 89 T: 37 QT: 369 QTc: 408 Interpretive Statements SINUS RHYTHM BORDERLINE ST ABNORMALITY- ANTEROLATERAL LEADS BASELINE ARTIFACT- I, II, III, AVR, AVL, AVF BORDERLINE ECG COMPARED TO ECG 08/18/2021 16:28:37 NO SIGNIFICANT CHANGES Electronically Signed On 06-03-2023 13:58:07 SEEING EYE DOG TRAINER by Rahat Guzmán D.O.
--- NOTE | 2023-06-03 13:25 | PC.NURSE ---
Pt to ED with family, cc of wordfinding problems and confusion. Pt unable to state month and experiencing headache and nausea/vomiting.
[2023-06-03 13:29] VITALS: BP 186/84; PULSE 75; RESP 20; TEMP 37.2; O2SAT 95
--- NOTE | 2023-06-03 13:29 | ED.NEUROSD ---
HPI - Neuro Symptoms/Deficit General Chief Complaint: Suspected CVA Stated Complaint: altered mental status Time Seen by Provider: 06/03/23 13:29 History of Present Illness HPI Narrative: Pt was with eliseo this morning about 0930 and began having trouble coming up with words and saying things that did not make since. Pt had a BROWN overnight and took tylenol but denies one sided weakness or blurred vision or numbness or tingling. Both patient and granddaughter say the symptoms are improving. Pt has recently switched seizure meds so eliseo not sure if she might have had a seizure but it was not witnessed. Related Data Home Medications Medication Instructions Recorded Confirmed amlodipine 5 mg tablet 5 mg PO DAILY 08/18/21 08/18/21 aspirin 81 mg tablet 81 mg PO DAILY 08/18/21 08/18/21 cyanocobalamin (vitamin B-12) 500 500 mcg PO DAILY 08/18/21 08/18/21 mcg tablet (Vitamin B-12) diphenoxylate-atropine 2.5 1 tablet PO BID 08/18/21 08/18/21 mg-0.025 mg tablet mesalamine 0.375 gram 0.375 g PO BID 08/18/21 08/18/21 capsule,extended release 24 hr metoprolol tartrate 50 mg tablet 50 mg PO BID 08/18/21 08/18/21 multivitamin with minerals 1 tablet PO DAILY 08/18/21 08/18/21 pantoprazole 40 mg tablet,delayed 40 mg PO QPM 08/18/21 08/18/21 release Allergies Allergy/AdvReac Type Severity Reaction Status Date / Time No Known Drug Allergies Allergy Unknown Unknown Verified 06/03/23 13:12 NSAIDS (Non-Steroidal AdvReac Unknown Unknown Verified 06/03/23 13:12 Anti-Inflamma Review of Systems Review of Systems: All systems reviewed & are unremarkable except as noted in HPI and below PMFSH Past Medical History Medical History Deafness in right ear Gastroesophageal reflux disease Hyperlipidemia Hypertension Prediabetes Ulcerative colitis Surgical History Surgical History History of dilation and curettage History of hip surgery Left hip surgery. Family History Family History Other Diabetes mellitus Hypertension Social History Social History Social History: Lives in [place]. Nonsmoker. No alcohol or illicit substance use. 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 Surrogate decision maker: Aby Riley, daughter. Code status: Full code. Smoking status: Never smoker Alcohol intake: never Substance use: never Substance use type: does not use Spiritual care concerns: No Exam HENMT: Head: normal to inspection and atraumatic Eyes: Pupils: Equal, round and reactive pupils present EOM: EOMs intact bilaterally Neck: Neck: normal visual inspection, full ROM, no lymphadenopathy and no meningeal signs Resp: Auscultation: clear to auscultation bilaterally Cardio: Rate: regular rate Rhythm: regular rhythm Skin: Lesions: no lesions Wounds: no wounds Neuro: Cranial nerves: Yes CN's II-XII intact bilaterally Cognition (Neuro): normal cognition Speech: normal speech Motor exam (neuro): 5/5 motor strength present throughout Sensory Exam: normal sensation Extrem: General: normal to inspection, full ROM and no clubbing, cyanosis or edema Psych: Mental Status: mental status grossly normal Affect: normal affect Attitude: cooperative Thought process: Normal thought process present Thought content: Yes Normal thought content present Insight: Good insight present (Psych) Judgement: Good judgement present (Psych) Course Vital Signs Vital signs: Vital Signs Temperature 99.0 F 06/03/23 13:29 Pulse Rate 75 06/03/23 13:29 Respiratory Rate 20 06/03/23 13:29 Blood Pressure 186/84 H 06/03/23 13:29 Pulse Oximetry 95 06/03/23 13:29 Oxygen Delivery Room Air 06/03/23 13:29 Temperature 99.0 F 06/03/23 13:29 Pulse Rate 66 06/03/23 17:57 Respira
[2023-06-03 13:48] VITALS: BP 175/90; PULSE 72; RESP 20; O2SAT 90
[2023-06-03 13:51] LABS: Basophils Percent Auto 0.4 % (0.2-1.2); Eosinophils Percent Auto 0.4 % (0-4.4); Hematocrit 43.4 % (37.0-47.0); Hemoglobin 14.2 g/dL (12.0-15.0); Immature Granulocyte Absolute 0.04 K/mm3 (0.00-0.031); Immature Granulocyte Percent A 0.5 % (0-0.5); Lymphocytes Absolute Auto 1.57 K/mm3 (0.9-3.2); Lymphocytes Percent Auto 19.3 % (18.3-44.2); Mean Corpuscular HGB Conc 32.7 g/dl (32-36); Mean Corpuscular Hemoglobin 31.4 pg (26-34); Mean Platelet Volume 9.1 fl (7.4-10.4); Monocytes Absolute Auto 0.6 K/mm3 (0.1-0.6); Monocytes Percent Auto 6.9 % (2.6-8.5); Neutrophils Absolute Auto 5.9 K/mm3 (1.3-6.7); Neutrophils Percent Auto 72.5 % (45.5-73.1); Platelet Count Result 268 k/mm3 (150-375); Red Blood Count 4.52 M/mm3 (4.2-5.4); Red Cell Distribution Width 14.4 % (11.5-14.5); White Blood Count 8.2 K/mm3 (4.5-10.0)
[2023-06-03 14:05] LABS: Alanine Aminotransferase 32 U/L (6-35); Albumin Level 4.6 g/dL (3.5-5.1); Alkaline Phosphatase 70 U/L (38-126); Anion Gap 8 mmol/L (8-16); Aspartate Amino Transferase 33 U/L (14-36); Bilirubin,Total 0.7 mg/dL (0.2-1.3); Blood Urea Nitrogen 15 mg/dL (7-17); Calcium 9.8 mg/dL (8.4-10.2); Carbon Dioxide 31 mmol/L (22-30); Chloride 96 mmol/L (98-107); Estimated CRCL calculation 51 ml/min; Estimated Glomerular Filt Rate > 60; Glucose 172 mg/dL (65-110); Potassium 3.4 mmol/L (3.4-5.0); Sodium 135 mmol/L (137-145)
[2023-06-03 14:07] LABS: Prothrombin Time 13.8 Seconds (11.1-14.7)
[2023-06-03 14:08] LABS: Partial Thromboplastin Time 28.1 SECONDS (22.3-36.8)
[2023-06-03 14:16] LABS: Troponin I < 0.012 ng/mL (0.000-0.034)
[2023-06-03 15:47] VITALS: BP 98/53; PULSE 72; RESP 19; O2SAT 91
[2023-06-03 16:32] LABS: Appearance Urine Clear (Clear); Bacteria Urine 4+ /hpf; Bilirubin Urine Negative (Negative); Blood Urine Negative (Negative); Color Urine Dark Yellow (Yellow); Glucose Urine UA Negative (Negative); Ketones Urine 1+ mg/dL (Negative); Leukocyte Esterase Ur 1+ LEU/UL (Negative); Nitrate Urine Positive (Negative); Non Pathogenic Casts 0-2; Protein Urine 1+ mg/dL (Negative); RBC Urine 0-2 /hpf (0-2); Specific Grav Ur 1.008 (1.001-1.035); Squamous Epithelial Cell Urine None seen /hpf (Few); Urobilinogen Urine 0.2 mg/dL (<2.0); pH Urine 7.5 (5.0-9.0)
[2023-06-03 16:36] LABS: Add Urine Microscopic? YES
[2023-06-03 16:46] VITALS: BP 162/69; PULSE 69; RESP 18; O2SAT 95
[2023-06-03 17:08] LABS: Glucose Point of Care 161 mg/dl (65-105)
[2023-06-03 17:57] VITALS: BP 152/70; PULSE 66; RESP 16; O2SAT 97
--- NOTE | 2023-06-03 17:58 | PC.NURSE ---
This RN discussed pt BP w/ Dr. Corcoran. No orders given at this time.
--- NOTE | 2023-06-03 18:10 | ADMGEN ---
This patient, Lisa Allen, was admitted to [facility] Surg Room 325-01. Patient/family oriented to hospital policies and general routines including ID bracelet, bed and alarms, visiting hours, pain management, procedures, bathroom and other care routines, personal items, smoking policy, room service/diet, and visiting hours. Information on how to activate the Rapid Response Team has been discussed. Patient/Family are encouraged to report perceived risks to care and to ask questions if they do not understand what they are told or what they should do.
--- NOTE | 2023-06-03 19:58 | PM.IMHP ---
H&P: HPI History of Present Illness Date/Time: 06/03/23 19:58 Chief Complaint: ams Narrative: This is a 88-year-old female with past medical history significant for hypertension, type diabetes mellitus, gastroesophageal reflux disease, hyperlipidemia, ulcerative colitis. Patient was brought to the emergency room for evaluation due to a speech disturbance confusion. Most of the history has been obtained from reviewing medical records patient is able to give me some history however not really contributory or meaningful to history taking. Preliminary workup has been essentially nonrevealing a urinalysis was significant for WBC 6-10. EXAMINATION: CT brain wo con DATE: 06/03/2023 13:27 INDICATION: Stroke with speech deficits with difficulty finding words and nausea. TECHNIQUE: Computed tomography (CT) of the head was performed without intravenous contrast. Sagittal and coronal reconstructions were performed. The mA was adjusted according to patient size. Iterative reconstruction technique was employed. The dose-length product was 681.00 mGy-cm. COMPARISON: None FINDINGS: No acute intracranial hemorrhage, acute infarction or abnormal extra axial fluid collection. There is moderate scattered white matter hypoattenuation consistent with chronic small vessel ischemic disease. Symmetric prominence of the sulci consistent with mild age-appropriate diffuse cerebral volume loss. Ventricles are normal and symmetric. No mass/mass effect. Changes of right intraocular lens replacement. The orbits, paranasal sinuses and mastoid air cells are normal. Intracranial calcified cerebral atherosclerosis is noted. IMPRESSION: 1. No acute intracranial process. Per stroke protocol this result was discussed with Dr. Corcoran at 1:27 PM 2. Age-related changes including mild diffuse volume loss and moderate scattered white matter hypoattenuation consistent with chronic small vessel ischemic disease. EXAMINATION: XR chest 1V portable INDICATION: Headache, possible stroke TECHNIQUE: Portable AP chest at 1346 hours COMPARISON: 08/18/2021 FINDINGS: The lungs are free of acute opacities. No pleural effusion or pneumothorax. The cardiomediastinal silhouette is stable. 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 IMPRESSION: 1. No acute cardiopulmonary abnormality. Review of Systems Review of Systems: ROS unobtainable: Yes unobtainable due to mental status (Confusion) [facility] Past Medical History Medical History (Updated 06/04/23 @ 01:53 by Jay Woods MD) Deafness in right ear Gastroesophageal reflux disease Hyperlipidemia Hypertension Prediabetes Ulcerative colitis Surgical History Surgical History History of dilation and curettage History of hip surgery Left hip surgery. Family History Family History (Updated 06/03/23 @ 18:27 by Jodi Chavez RN) Mother Diabetes mellitus Hypertension Cancer Cerebrovascular accident Afib Father Cancer Social History Social History Social History: Lives in [place]. Nonsmoker. No alcohol or illicit substance use. 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 Surrogate decision maker: Aby Riley, daughter. Code status: Full code. Smoking status: Never smoker Alcohol intake: never Substance use: never Substance use type: does not use Lack of Transportation: No Lack of Food: Never True Current Housing: Decline to Answer Concerned About Future Housing: No Difficulty Paying Gas/Electric Bills: No Difficulty Paying for Meds: No Currently Unemployed: No Education: Decline to Answer Difficulty w/ Childcare or Family Care: No Spiritual care concerns: No Meds Home Medications and Allergies Home Medications Medication Instructions Recorded Confirmed Type amlodipine 5 mg tablet 5 mg PO DAILY 08/18/21 06/03/23 History aspirin 81 mg
[2023-06-03 21:52] VITALS: BP 177/73; PULSE 74; RESP 20; TEMP 37.1; O2SAT 96
[2023-06-03 22:01] LABS: Glucose Point of Care 114 mg/dl (65-105)
[2023-06-04] VITALS (10 sets, daily range): BP systolic 122–160; BP diastolic 64–99; PULSE 63–74; RESP 16–20; TEMP 36.1–36.7; O2SAT 94–99; BMI 28.3
[2023-06-04 08:23] LABS: Glucose Point of Care 113 mg/dl (65-105)
[2023-06-04] MEDS: ASPIRIN 325 MG TABLET PO (08:24)
[2023-06-04 09:04] LABS: Hematocrit 43.3 % (37.0-47.0); Mean Corpuscular HGB Conc 32.3 g/dl (32-36); Mean Corpuscular Hemoglobin 31.2 pg (26-34); Mean Corpuscular Volume 96.4 fl (80-100); Mean Platelet Volume 9.3 fl (7.4-10.4); Platelet Count Result 259 k/mm3 (150-375); Red Blood Count 4.49 M/mm3 (4.2-5.4); Red Cell Distribution Width 14.4 % (11.5-14.5); White Blood Count 7.7 K/mm3 (4.5-10.0)
[2023-06-04] MEDS: azaTHIOprine 50 MG TABLET 100 MG PO (09:06)
[2023-06-04] MEDS: METOPROLOL TARTRATE 50 MG TAB PO ×2 (09:07→20:20)
[2023-06-04] MEDS: amLODIPine BESYLATE 5 MG TABLET PO (09:08)
[2023-06-04 09:13] LABS: Anion Gap 9 mmol/L (8-16); Blood Urea Nitrogen 17 mg/dL (7-17); Calcium 9.5 mg/dL (8.4-10.2); Carbon Dioxide 29 mmol/L (22-30); Chloride 99 mmol/L (98-107); Estimated CRCL calculation 45 ml/min; Estimated Glomerular Filt Rate > 60; Glucose 111 mg/dL (65-110); Potassium 3.3 mmol/L (3.4-5.0); Sodium 137 mmol/L (137-145)
[2023-06-04] MEDS: FERROUS SULFATE 325 MG TABLET DR PO (09:13)
[2023-06-04] MEDS: lamoTRIgine 100 MG TABLET PO ×2 (09:14→20:20)
--- NOTE | 2023-06-04 09:20 | WPDNEUROLOGY ---
Neurology EEG Report General Information Date of Study: 06/04/23 TEST eeg DIAGNOSIS Recurrent seizures CONDITION OF RECORDING awake, drowsy and sleep EEG NUMBER [id number] CLINICAL HISTORY patient was brought into hospital yesterday for dysphagia and confusion. EEG DESCRIPTION Basic resting occipital frequency consists of low-voltage to medium voltage 9 to 11 hertz per 2nd alpha admixed with low-voltage beta activity. Low-voltage beta activity seen diffusely admixed with waxing and waning posterior alpha rhythm during drowsiness. Bilateral symmetrical sleep activity is seen with admixture of beta alpha and theta activity evolving into symmetrical sleep spindles bilaterally. Hyperventilation not done ,photic stimulation not done. Non paroxysmal. Nonfocal. Nonlateralizing. IMPRESSION Normal record during wakefulness drowsiness and sleep. Clinical correlation recommended.The EEG can be normal even if the patient has h/o seizures.
[2023-06-04] MEDS: POTASSIUM CHLORIDE 20 MEQ PACKET (FOR LIQUID) 40 MEQ PO (11:19)
[2023-06-04] MEDS: MESALAMINE 250 MG CAP CR 750 MG PO ×2 (11:20→17:28)
--- NOTE | 2023-06-04 11:22 | PM.IMPN ---
Progress Note: A&P Assessment and Plan (1) Brain TIA: Code(s): G45.9 - Transient cerebral ischemic attack, unspecified Status: Acute Assessment and Plan: CT angiogram reviewed CT head reviewed EEG normal MRI brain showed no acute intracranial process. A few foci of susceptibility artifact at the bilateral thalami and with typical pattern for chronic microhemorrhage in the setting of hypertension. Age-related changes including mild diffuse volume loss and moderate scattered nonspecific white matter T2 hyperintensity consistent with chronic small vessel ischemic disease Patient has appointment with neurologist in a few months (2) UTI (urinary tract infection): Code(s): N39.0 - Urinary tract infection, site not specified Status: Acute Assessment and Plan: Con't on Rocephin until culture sensitivity results (3) Hypertension: Code(s): I10 - Essential (primary) hypertension Status: Acute Assessment and Plan: Continue home meds Continue to monitor (4) Ulcerative colitis: Code(s): K51.90 - Ulcerative colitis, unspecified, without complications Status: Acute Assessment and Plan: In remission Continue home meds (5) Gastroesophageal reflux disease: Code(s): K21.9 - Gastro-esophageal reflux disease without esophagitis Status: Acute Assessment and Plan: PPI Subjective Date/time seen: 06/04/23 11:22 Interval history: Patient is a 88 YO female with PMH of hypertension, type diabetes mellitus, gastroesophageal reflux disease, hyperlipidemia, ulcerative colitis. Patient admitted for evaluation due to a speech disturbance confusion. UA was significant for WBC 6-10, started on Rocephin. She is already scheduled to establish with a neurologist in a few months due to these symptoms in the past. Neuro consulted for EEG, MRI of her brain will be done today. Showed no acute changes or CVA. CXR was negative and CT brain was negative for acute infarct. She is very pleasant and sitting up at the bedside eating her breakfast this morning. She is is no acute distress and alert and oriented this morning. Will continue to monitor and plan for d/c when cleared and stable. Review of Systems Review of Systems: All systems reviewed & are unremarkable except as noted in HPI and below Exam Narrative: General: Awake, alert and oriented. No acute distress. Well developed, hydrated and nourished. Appears stated age. Skin: Skin in warm, dry and intact without rashes or lesions. Eyes: Conjunctivae are clear without exudates or hemorrhage. EOM are intact, PERRLA. Neck: The neck is supple without adenopathy. Thyroid gland is normal without masses. Cardiac: RRR. No murmurs, gallops, or rubs are auscultated. Respiratory: No signs of trauma. Chest wall is non-tender. No signs of respiratory distress. Lung sounds are clear in all lobes bilaterally without rales, ronchi, or wheezes. Abdominal: Abdomen is soft, symmetric, and non-tender without distention. Bowel sounds are present and normoactive in all four quadrants. No masses, hepatomegaly, or splenomegaly are noted. Extremities: No swelling or erythema. Full range of motion is noted to all joints. Pulses palpable. Neurological: A&O x3 with normal speech. Cranial nerves are intact. Memory is normal and thought process is intact. Psychiatric: Appropriate mood and affect. Good judgement and insight. No visual or auditory hallucinations. No suicidal or homicidal ideation Objective Data Vital Signs Vital Signs: Vital Signs - 24 hr 06/03/23 13:29 06/03/23 13:48 06/03/23 15:47 Temperature 99.0 F Pulse Rate 75 72 72 Respiratory Rate 20 20 19 Blood Pressure 186/84 H 175/90 H 98/53 L Pulse Oximetry 95 90 91 Oxygen Delivery Room Air 06/03/23 16:46 06/03/23 17:57 06/03/23 21:52 Temperature 98.7 F Pulse Rate 69 66 74 Respiratory Rate 18 16 20 Blood Pressure 162/69 H 152/70 H 177/73 H Pulse
[2023-06-04 11:38] LABS: Glucose Point of Care 157 mg/dl (65-105)
--- NOTE | 2023-06-04 13:15 | PC.NURSE ---
On 06/04/23, the student, [Carmen Bravo ], provided care and [facility]. I have reviewed the student's documentation and agree with the findings.
--- NOTE | 2023-06-04 15:10 | WPDNEURCNPN ---
Assessment and Plan Assessment and plan (1) Brain TIA: Code(s): G45.9 - Transient cerebral ischemic attack, unspecified Status: Acute Plan 1 TIA 2. Possibility of seizure EEG is normal definitely looking better at present treatment will be continued as such Consult date: 06/04/23 HPI: Lisa Allen is a 78 year old female 78 years old right-handed female admitted to the hospital through the emergency room with information that she started having difficulties in speech around 9:30 a.m. to the point that conversation was garbled she had complained of headache overnight but without any association neurological symptomatology such as visual difficulties or weakness or numbness of 1 side or other side patient has ongoing diagnosis of seizure disorder and was recently switched over on some medication. Initial medications included amlodipine 5mg daily, aspirin 81mg daily, she is not allergic to any medication except the NSAID, he does have ongoing history of difficulties in hearing on the right side in addition to hyperlipidemia and GERD she is never a smoker drinker and initial exam in the ER was fair normal vital signs with a blood pressure was 186/84, CBC was normal BMP was sodium 135 and blood sugar 172 and was admitted to the hospital with the diagnosis of possible TIA, further investigations include MRI of the brain which revealed no acute process in the setting of the hypertension, Doppler study of the carotid documented moderate to large plaques of the bilateral carotid bulb with antegrade flow medications include aspirin 325mg initially followed by 81mg daily, lamotrigine 100mg q.12 hours, pravastatin 40mg daily, and antibiotic coverage, EEG is normal PMFSH Past Medical History Medical History (Updated 06/04/23 @ 01:53 by Jay Woods MD) Deafness in right ear Gastroesophageal reflux disease Hyperlipidemia Hypertension Prediabetes Ulcerative colitis Surgical History Surgical History History of dilation and curettage History of hip surgery Left hip surgery. Family History Family History (Updated 06/03/23 @ 18:27 by Jodi Chavez RN) Mother Diabetes mellitus Hypertension Cancer Cerebrovascular accident Afib Father Cancer Social History Social History Social History: Lives in [place]. Nonsmoker. No alcohol or illicit substance use. 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 Surrogate decision maker: Aby Riley, daughter. Code status: Full code. Smoking status: Never smoker Alcohol intake: never Substance use: never Substance use type: does not use Lack of Transportation: No Lack of Food: Never True Current Housing: Decline to Answer Concerned About Future Housing: No Difficulty Paying Gas/Electric Bills: No Difficulty Paying for Meds: No Currently Unemployed: No Education: Decline to Answer Difficulty w/ Childcare or Family Care: No Spiritual care concerns: No Meds Home Medications and Allergies Home Medications Medication Instructions Recorded Confirmed Type amlodipine 5 mg tablet 5 mg PO DAILY 08/18/21 06/03/23 History aspirin 81 mg tablet 81 mg PO HS 08/18/21 06/03/23 History mesalamine 0.375 gram 0.75 g PO BID 08/18/21 06/03/23 History capsule,extended release 24 hr metoprolol tartrate 50 mg tablet 50 mg PO BID 08/18/21 06/03/23 History multivitamin with minerals 1 tablet PO DAILY 08/18/21 06/03/23 History pantoprazole 40 mg tablet,delayed 40 mg PO QPM 08/18/21 06/03/23 History release pravastatin 40 mg tablet 40 mg PO QPM #90 tabs 07/30/22 06/03/23 Rx Dialyvite Vitamin D 2,000 units PO DAILY 06/03/23 06/03/23 History azathioprine 100 mg tablet 100 mg PO DAILY 06/03/23 06/03/23 History ferrous sulfate 324 mg (65 mg 324 mg PO DAILY 06/03/23 06/03/23 History iron) tablet,delayed release lamotrigine 100 mg tablet 100 mg PO BID 06/03/23
[2023-06-04 17:02] LABS: Glucose Point of Care 145 mg/dl (65-105)
[2023-06-04] MEDS: PRAVASTATIN SODIUM 20 MG TABLET 40 MG PO (17:28)
[2023-06-04] MEDS: PANTOPRAZOLE 40 MG TABLET PO (17:28)
[2023-06-04 20:32] LABS: Glucose Point of Care 252 mg/dl (65-105)
[2023-06-05] VITALS (10 sets, daily range): BP systolic 150–168; BP diastolic 68–79; PULSE 59–72; RESP 18; TEMP 36.6–36.8; O2SAT 94–97
[2023-06-05 08:01] LABS: Glucose Point of Care 121 mg/dl (65-105)
[2023-06-05 08:24] LABS: Hematocrit 41.3 % (37.0-47.0); Hemoglobin 13.4 g/dL (12.0-15.0); Mean Corpuscular HGB Conc 32.4 g/dl (32-36); Mean Corpuscular Hemoglobin 31.6 pg (26-34); Mean Corpuscular Volume 97.4 fl (80-100); Mean Platelet Volume 8.9 fl (7.4-10.4); Platelet Count Result 233 k/mm3 (150-375); Red Blood Count 4.24 M/mm3 (4.2-5.4); Red Cell Distribution Width 14.3 % (11.5-14.5); White Blood Count 6.7 K/mm3 (4.5-10.0)
[2023-06-05 08:36] LABS: Anion Gap 7 mmol/L (8-16); Blood Urea Nitrogen 18 mg/dL (7-17); Calcium 9.1 mg/dL (8.4-10.2); Carbon Dioxide 31 mmol/L (22-30); Chloride 103 mmol/L (98-107); Estimated CRCL calculation 40 ml/min; Estimated Glomerular Filt Rate 60; Glucose 132 mg/dL (65-110); Potassium 3.8 mmol/L (3.4-5.0); Sodium 141 mmol/L (137-145)
[2023-06-05] MEDS: MESALAMINE 250 MG CAP CR 750 MG PO ×2 (10:28→18:05)
[2023-06-05] MEDS: METOPROLOL TARTRATE 50 MG TAB PO ×2 (10:28→21:29)
[2023-06-05] MEDS: azaTHIOprine 50 MG TABLET 100 MG PO (10:28)
[2023-06-05] MEDS: lamoTRIgine 100 MG TABLET PO ×2 (10:28→21:29)
[2023-06-05] MEDS: amLODIPine BESYLATE 5 MG TABLET PO (10:29)
[2023-06-05] MEDS: ASPIRIN 325 MG TABLET PO (10:29)
[2023-06-05] MEDS: FERROUS SULFATE 325 MG TABLET DR PO (10:29)
--- NOTE | 2023-06-05 12:02 | WPDNEUROPN ---
Progress Note: A&P Assessment and Plan (1) Alteration in speech: Code(s): R47.89 - Other speech disturbances Status: Acute (2) Aphasia: Code(s): R47.01 - Aphasia Status: Acute (3) Epilepsy: Code(s): G40.909 - Epilepsy, unspecified, not intractable, without status epilepticus Status: Acute (4) UTI (urinary tract infection): Code(s): N39.0 - Urinary tract infection, site not specified Status: Acute Plan Patient with a history of epilepsy presenting with an episode of word finding difficulty. Seems like it may have been a seizure, since she has had similar aphasia with prior seizures -- could be provoked by UTI and/or recent medication change. MRI brain was negative for acute stroke. Also considering TIA. Carotid study showed moderate to large plaque in bilateral carotid bulbs. - No change to seizure medication. Continue Lamictal 100mg BID. Patient's grand-daughter will reach out to primary Neurologist at [facility] and let him know about possible seizure. Since it seems like it may have been provoked, will not make any changes at this time. - Complete TIA work-up: CTA brain/carotid and surface echocardiogram with bubble study, check LDL and A1c - Continue Aspirin 81mg daily and Pravastatin 40mg daily Subjective Date/time seen: 06/05/23 12:02 Interval history: Ms. Allen is an year old female with a history of epilepsy, GERD, HLD, HTN, prediabetes presenting for evaluation of speech change. On day of admission patient had an episode of word finding difficulty. Unclear how long the episode lasted, but by the time she was seen in the ED, her symptoms were improving. She did not have a witnessed seizure, but per grand-daughter, it is not unusual for patient to have word finding difficulty and garbled speech after a seizure. In this case, it lasted longer than usual, which is what prompted her to bring her to the hospital. Of note, patient was initially on Keppra, but was switched to Lamictal recently by her primary Neurologist due to agitation from the Keppra. She completed the switch to Lamictal about 3-4 days ago, which is when she had her last dose of Keppra. During admission she was found to have a UTI. MRI brain was negative for stroke. Carotid doppler study showed moderate to large plaques in bilateral carotid bulb regions. EKG showed normal sinus rhythm. Blood pressure during admission was as high as 180s systolic, but has been in the 160s for the past day. Routine EEG done already which was read as normal. Her Lamictal dose is 100mg BID. She also takes Aspirin 81mg daily and Pravastatin 40mg daily. Review of Systems Constitutional: Constitutional: Denies chills, Denies fever(s) and Denies weight loss Eyes: Eyes: Denies diplopia and Denies loss of vision ENT: Denies dizziness, Denies hearing loss and Denies tinnitus Cardiovascular: Cardiovascular: Denies chest pain, Denies syncope and Denies dyspnea Respiratory: Respiratory: Denies cough, Denies dyspnea and Denies wheezing Gastrointestinal: Gastrointestinal: Denies abdominal pain, Denies change in bowel habits and Denies vomiting Genitourinary: Genitourinary: Denies urinary incontinence Musculoskeletal: Musculoskeletal: Denies arthralgias and Denies joint swelling Integumentary/Breasts: Skin/Breast: Denies new lesions and Denies rash Neurologic: Reports as per HPI, Denies dizziness, Denies syncope and Denies loss of vision Psychiatric: Psychiatric: Denies anxiety and Denies depression Endocrine: Endocrine: Denies cold intolerance and Denies heat intolerance Hematologic/Lymphatic: Hematologic/Lymphatic: Denies easy bleeding and Denies easy bruising Allergic/Immunologic: Allergic/Immunologic: Denies no additional allergic/immunologic complaints and Denies wheezing Exam Const: General: comfortable and no acute distress Eyes: EOM: EOMs intact bilaterally Other: R pupil 2mm constricted, nonreactive L pupil 5mm and reactive
[2023-06-05 12:14] LABS: Glucose Point of Care 156 mg/dl (65-105)
[2023-06-05 13:41] LABS: LDL Cholesterol Direct 92 mg/dL
[2023-06-05 14:02] LABS: Hemoglobin A1C 5.7 % (<5.7)
--- NOTE | 2023-06-05 15:10 | PM.IMPN ---
Progress Note: A&P Assessment and Plan (1) Brain TIA: Code(s): G45.9 - Transient cerebral ischemic attack, unspecified Status: Acute Assessment and Plan: CT angiogram reviewed CT head reviewed EEG normal MRI brain showed no acute intracranial process. A few foci of susceptibility artifact at the bilateral thalami and with typical pattern for chronic microhemorrhage in the setting of hypertension. Age-related changes including mild diffuse volume loss and moderate scattered nonspecific white matter T2 hyperintensity consistent with chronic small vessel ischemic disease Patient has appointment with neurologist in a few months Our neuro consulted and recommended CTA brain carotid - pending, 2d surface echo bubble study - pending LDL, A1C - pending Carotid dopplers showed moderate to severe blockage, changed to Crestor 40 mg daily and continue aspirin 81 mg daily (2) UTI (urinary tract infection): Code(s): N39.0 - Urinary tract infection, site not specified Status: Acute Assessment and Plan: Postive for E.Coli. Con't on Rocephin until culture sensitivity results (3) Hypertension: Code(s): I10 - Essential (primary) hypertension Status: Acute Assessment and Plan: Continue home meds Continue to monitor, better controlled (4) Ulcerative colitis: Code(s): K51.90 - Ulcerative colitis, unspecified, without complications Status: Acute Assessment and Plan: In remission Continue home meds (5) Gastroesophageal reflux disease: Code(s): K21.9 - Gastro-esophageal reflux disease without esophagitis Status: Acute Assessment and Plan: PPI Subjective Date/time seen: 06/05/23 15:10 Interval history: Patient is a 88 YO female with PMH of hypertension, type diabetes mellitus, gastroesophageal reflux disease, hyperlipidemia, ulcerative colitis. Patient admitted for evaluation due to a speech disturbance confusion. UA was significant for WBC 6-10, started on Rocephin. She is already scheduled to establish with a neurologist in a few months due to these symptoms in the past. Neuro consulted for EEG, MRI of her brain will be done today. Showed no acute changes or CVA. CXR was negative and CT brain was negative for acute infarct. Carotid dopplers showed moderate to severe blockage, so we adjusted her statin today and will continue with aspirin. She is very pleasant and sitting up at the bedside eating her breakfast this morning. She is is no acute distress and alert and oriented this morning. Neurology recommended CTA Brain/carotid, LDL, A1c and will continue to monitor and plan for d/c when cleared and stable. Review of Systems Review of Systems: All systems reviewed & are unremarkable except as noted in HPI and below Exam Narrative: General: Awake, alert and oriented. No acute distress. Well developed, hydrated and nourished. Appears stated age. Skin: Skin in warm, dry and intact without rashes or lesions. Eyes: Conjunctivae are clear without exudates or hemorrhage. EOM are intact, PERRLA. Neck: The neck is supple without adenopathy. Thyroid gland is normal without masses. Cardiac: RRR. No murmurs, gallops, or rubs are auscultated. Respiratory: No signs of trauma. Chest wall is non-tender. No signs of respiratory distress. Lung sounds are clear in all lobes bilaterally without rales, ronchi, or wheezes. Abdominal: Abdomen is soft, symmetric, and non-tender without distention. Bowel sounds are present and normoactive in all four quadrants. No masses, hepatomegaly, or splenomegaly are noted. Extremities: No swelling or erythema. Full range of motion is noted to all joints. Pulses palpable. Neurological: A&O x3 with normal speech. Cranial nerves are intact. Memory is normal and thought process is intact. Psychiatric: Appropriate mood and affect. Good judgement and insight. No visual or auditory hallucinations. No suicidal or homicidal ideati
[2023-06-05 17:01] LABS: Glucose Point of Care 149 mg/dl (65-105)
[2023-06-05] MEDS: PRAVASTATIN SODIUM 20 MG TABLET 40 MG PO (18:05)
[2023-06-05] MEDS: PANTOPRAZOLE 40 MG TABLET PO (18:05)
[2023-06-05 21:51] LABS: Glucose Point of Care 145 mg/dl (65-105)
[2023-06-06] VITALS (7 sets, daily range): BP systolic 131–145; BP diastolic 53–82; PULSE 61–83; RESP 16–18; TEMP 36.7–37.8; O2SAT 92–94
--- NOTE | 2023-06-06 | ECHO_ITS ---
Patient Info Name: Lisa Allen Age: 78 years : 1945 Gender: Female Ht: 62 in Wt: 154 lbs BSA: 1.77 m2 HR: 83 bpm BP: 165 / 79 mmHg Heart Rhythm: Sinus Rhythm Technical Quality: Good Exam Date: 06/06/2023 10:00 AM Exam Location: Echo Lab Patient Status: Inpatient Admit Date: 06/04/2023 Staff Ordering Physician: Caryn Altamirano APRN Cloud Engineer: Mayra Andrade RDCS Attending Provider: Jagruti Ingram DO Exam Type: CA echo dop bubble study w con Study Info Indications - r/o pfo Complete two-dimentional, color flow and Doppler transthoracic echocardiogram is performed with agitated saline and with contrast to opacify the left ventricle and to improve the delineation of the left ventricle endocardial borders. Contrast/Agitated Saline Contrast/Ag. Saline: Definity Amount: 2.00 ml Administered By: Mayra Andrade RDCS Existing IV Access: Yes IV Access Condition: patent with no signs of infiltration Contrast/Ag. Saline: Agitated Saline Amount: 20.00 ml Administered By: Peg Giles RDCS Existing IV Access: Yes IV Access Condition: patent with no signs of infiltration Summary 1. Definity contrast administered improved wall motion interpretation. 2. Left ventricular chamber dimension is normal. 3. Ventricular septum is sigmoid shaped. No LVOT obstruction. 4. Left ventricular systolic function is normal, estimated at 65-70%. 5. The left ventricular diastolic function is grade I diastolic dysfunction. 6. E/e' 16 is elevated. 7. Left atrial chamber dimension is moderately enlarged. 8. There is mild aortic valve sclerosis. 9. The mitral valve has mildly calcified annulus. 10. There is trace mitral valve regurgitation. 11. There is trace tricuspid valve regurgitation. 12. No pulmonary hypertension, estimated pulmonary arterial systolic pressure is 29 mmHg. Left Ventricle Definity contrast administered improved wall motion interpretation. E/e' 16 is elevated. Ventricular septum is sigmoid shaped. No LVOT obstruction. Left ventricular chamber dimension is normal. Left ventricular systolic function is normal, estimated at 65-70%. The left ventricular diastolic function is grade I diastolic dysfunction. Right Ventricle Right ventricular chamber dimension is normal. Right ventricular systolic function is normal. Left Atria Left atrial chamber dimension is moderately enlarged. Right Atria Agitated saline injection with and without valsalva maneuver opacified right side cardiac chambers without shunt to left side cardiac chambers. Right atrial chamber dimension is normal. Aortic Valve The aortic valve is trileaflet. There is mild aortic valve sclerosis. There is no aortic valve stenosis. There is no aortic valve regurgitation. Pulmonic Valve There is no pulmonic regurgitation. Mitral Valve The mitral valve has mildly calcified annulus. There is no mitral valve stenosis. There is trace mitral valve regurgitation. Tricuspid Valve There is trace tricuspid valve regurgitation. No pulmonary hypertension, estimated pulmonary arterial systolic pressure is 29 mmHg. Pericardium/Pleural There is no pericardial effusion. Inferior Vena Cava Normal inferior vena cava with >50% collapse upon inspiration consistent with normal right atrial pressure, 5 mmHg. Aorta The aortic root size at the sinus of Valsalva is normal. Left Ventricular Outflow Tract Name
[2023-06-06 07:00] LABS: Hemoglobin 14.1 g/dL (12.0-15.0); Mean Corpuscular Hemoglobin 31.1 pg (26-34); Mean Corpuscular Volume 97.1 fl (80-100); Mean Platelet Volume 9.1 fl (7.4-10.4); Platelet Count Result 260 k/mm3 (150-375); Red Blood Count 4.53 M/mm3 (4.2-5.4); Red Cell Distribution Width 14.3 % (11.5-14.5); White Blood Count 8.2 K/mm3 (4.5-10.0)
[2023-06-06 07:08] LABS: Anion Gap 7 mmol/L (8-16); Blood Urea Nitrogen 14 mg/dL (7-17); Calcium 9.4 mg/dL (8.4-10.2); Carbon Dioxide 33 mmol/L (22-30); Chloride 102 mmol/L (98-107); Estimated CRCL calculation 45 ml/min; Estimated Glomerular Filt Rate > 60; Glucose 147 mg/dL (65-110); Potassium 3.6 mmol/L (3.4-5.0); Sodium 142 mmol/L (137-145)
[2023-06-06 07:55] LABS: Glucose Point of Care 140 mg/dl (65-105)
[2023-06-06] MEDS: PERFLUTREN LIPID MICROSPHERES 1.5 ML VIAL DILUTED TO 10 ML TOTAL VOLUME IV PUSH (10:40)
[2023-06-06] MEDS: azaTHIOprine 50 MG TABLET 100 MG PO (10:56)
[2023-06-06] MEDS: lamoTRIgine 100 MG TABLET PO (10:56)
[2023-06-06] MEDS: ROSUVASTATIN 20 MG TABLET 40 MG PO (10:57)
[2023-06-06] MEDS: FERROUS SULFATE 325 MG TABLET DR PO (10:57)
[2023-06-06] MEDS: MESALAMINE 250 MG CAP CR 750 MG PO (10:58)
[2023-06-06] MEDS: METOPROLOL TARTRATE 50 MG TAB PO (10:58)
[2023-06-06] MEDS: ASPIRIN 81 MG ENTERIC TABLET PO (10:59)
[2023-06-06] MEDS: amLODIPine BESYLATE 5 MG TABLET PO (10:59)
--- NOTE | 2023-06-06 11:47 | IVDEFINITY ---
Prior to administration of IV Definity the patient was educated on the risks and benefits of the imaging enhancing agent including potential adverse side effects. The patient verbalized understanding. Allergies were verified. No exclusion criteria were identified and at least one of the following inclusion criteria were met: 1) physician request, 2) patient technically difficult to image (per the [place] [employer]chocardi[employer] guidelines of two or more segments not discernable within the apical view), or 3) questionable left ventricular function. ?
[2023-06-06 11:52] LABS: Glucose Point of Care 207 mg/dl (65-105)
--- NOTE | 2023-06-06 14:28 | PM.DS ---
DS: Admitting Diagnosis Discharge Date 06/06/23 Admitting Diagnosis alteration in speech DS: Discharge Diagnosis Discharge Diagnosis (1) Brain TIA: Code(s): G45.9 - Transient cerebral ischemic attack, unspecified Status: Acute Assessment and Plan: CT angiogram reviewed CT head reviewed EEG normal MRI brain showed no acute intracranial process. A few foci of susceptibility artifact at the bilateral thalami and with typical pattern for chronic microhemorrhage in the setting of hypertension. Age-related changes including mild diffuse volume loss and moderate scattered nonspecific white matter T2 hyperintensity consistent with chronic small vessel ischemic disease Patient has appointment with neurologist in a few months. Our neuro consulted and recommended CTA brain carotid which showed Moderate nonspecific cerebral white matter disease, which likely represents chronic small vessel ischemic disease. No aneurysm or significant intracranial arterial stenosis. 0% stenosis of the proximal internal carotid arteries relative to normal distal artery lumen diameters (NASCET criteria). Carotid dopplers showed moderate to severe blockage, changed to Crestor 40 mg daily and continue aspirin 81 mg daily (2) UTI (urinary tract infection): Code(s): N39.0 - Urinary tract infection, site not specified Status: Acute Assessment and Plan: Positive for E.Coli. Asymptomatic, will d/c antibiotic. (3) Hypertension: Code(s): I10 - Essential (primary) hypertension Status: Acute Assessment and Plan: Continue home meds (4) Ulcerative colitis: Code(s): K51.90 - Ulcerative colitis, unspecified, without complications Status: Acute Assessment and Plan: In remission Continue home meds (5) Gastroesophageal reflux disease: Code(s): K21.9 - Gastro-esophageal reflux disease without esophagitis Status: Acute Assessment and Plan: PPI DS: Summary Hospital Course Hospital Course: Patient is a 88 YO female with PMH of hypertension, type diabetes mellitus, gastroesophageal reflux disease, hyperlipidemia, ulcerative colitis. Patient admitted for evaluation due to a speech disturbance confusion. UA was significant for WBC 6-10, started on Rocephin. She is already scheduled to establish with a neurologist in a few months due to these symptoms in the past. Neuro consulted for EEG, MRI of her brain will be done today. Showed no acute changes or CVA. CXR was negative and CT brain was negative for acute infarct. Carotid dopplers showed moderate to severe blockage, so we adjusted her statin to Crestor and will continue with aspirin 81 mg daily. She is ready to be discharged home with the help of her granddaughter who will be staying with her. She is is no acute distress and alert and oriented this morning. Neurology recommended CTA Brain/carotid, which was not concerning for acute changes. Patient is to follow up with her scheduled neurologist appointment. UTI with E.Coli present, but patient is asymptomatic so antibiotics were discontinued prior to d/c. Status at Discharge Functional status at discharge: uses cane/walker Overall status at discharge: patient is back to baseline Time Spent with Patient Time attestation: Total time spent providing and/or coordinating discharge services: Exam Narrative: General: Awake, alert and oriented. No acute distress. Well developed, hydrated and nourished. Appears stated age. Skin: Skin in warm, dry and intact without rashes or lesions. Eyes: Conjunctivae are clear without exudates or hemorrhage. EOM are intact, PERRLA. Neck: The neck is supple without adenopathy. Thyroid gland is normal without masses. Cardiac: RRR. No murmurs, gallops, or rubs are auscultated. Respiratory: No signs of trauma. Chest wall is non-tender. No signs of respiratory distress. Lung sounds are clear in all lobes bilaterally without rales, ronchi, or wheezes. Abd
--- NOTE | 2023-06-06 16:01 | PC.NURSE ---
Pt discharged home with granddaughter. Pt IV was removed tip intact and pt tolerated well. Pt participated and contributed in plan of care. Pt A&O4 with intermittent confusion. Pt was monitored for any changes in status while here.
== END 2023-06-06 15:10 | disposition home or self-care (01) | DRG 69 ==
LOC: ANHED 15:29 → ANH3MEDSUR 17:53
PROVIDERS: Admitting Provider Student in an Organized Health Care Education/Training Program; Emergency Provider Emergency Medicine; PCP Family Medicine; Visit Provider Nurse Practitioner
DX: G45.9 Transient cerebral ischemic attack, unspecified (principal); N39.0 Urinary tract infection, site not specified; R47.01 Aphasia; K51.90 Ulcerative colitis, unspecified, without complications; G40.909 Epilepsy, unspecified, not intractable, without status epilepticus; I10 Essential (primary) hypertension; E78.5 Hyperlipidemia, unspecified; K21.9 Gastro-esophageal reflux disease without esophagitis; B96.20 Unspecified Escherichia coli [E. coli] as the cause of diseases classified elsewhere; R73.03 Prediabetes; Z79.82 Long term (current) use of aspirin
CPT/HCPCS: 36415; 70450; 70496; 70498; 70551; 71045; 80048; 80053; 81001; 82948; 83036; 83721; 84484; 85025; 85027; 85610; 85730; 87077; 87086; 87088; 87186; 93005; 93880; 95816; 96365; 96375; 99285; A9270; C8929; G0378; J0696; Q9957; Q9967

== ENCOUNTER 2023-08-10 17:58 | Emergency (ER) | payer MEDICARE, SELFPAY ==
--- NOTE | ~2023-08-10 | XR_ITS ---
Left Shoulder Technique: AP and scapular Y views were obtained. Clinical History: Pain Findings: No fracture or dislocation is seen. There is moderate to advanced AC joint degenerative dallin nge. Glenohumeral joint space is preserved. Soft tissues are unremarkable. Impression: No fracture or dislocation seen. Moderate to advanced AC joint degenerative change. Reviewed, dictated and finalized at location . DDLE BUG DRIVER Impression: No fracture or dislocation seen. Moderate to advanced AC joint degenerative change.
--- NOTE | ~2023-08-10 | CT_ITS ---
Noncontrast CT scan of the cervical spine Technique: Multiple contiguous axial [address] images of the cervical spine were obtained and rec onstructed in 2D sagittal and coronal planes on the acquisition scanner. Dose reduction technique was used on this scan by utilizing automated exposure control, adjustment of the mA and/or kV according to patient size. The dose-length product (DLP) was 175.43 mGy-cm. Clinical History: Pain Findings: No fractures identified. There are mild scattered facet joint degenerative changes. There is minimal grade 1 anterolisthesis of C4 over C5. No prevertebral soft tissue swelling. Impression: No fracture. Minimal grade 1 anterolisthesis of C4 over C5. Reviewed, dictated and finalized at location . 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 Minimal grade 1 anterolisthesis of C4 over C5.
--- NOTE | ~2023-08-10 | CT_ITS ---
CT head without contrast Indication: Head injury COMPARISON: 06/05/2023 Technique: Serial scans were obtained through the brain without the administration of contrast. Dose reduction technique was used on this scan by utilizing automated exposure control and iterative recon struction technique. The dose-length product (DLP) was 529.67 mGy-cm. Findings: There is no evidence of intracranial hemorrhage, mass lesion, or acute infarct. The ventri cles and subarachnoid spaces are dilated, consistent with mild atrophy. Low attenuation regions are seen within the periventricular white matter bilaterally, likely representing changes from chronic mi crovascular ischemic disease. There is no evidence of edema, mass effect or midline shift. The visu alized paranasal sinuses and mastoid air cells are clear. Impression: No intracranial hemorrhage, mass, or acute infarct. Atrophy and chronic white matter changes, as above. Reviewed, dictated and finalized at [facility]. TING ENGINEER Impression: No intracranial hemorrhage, mass, or acute infarct. Atrophy and chronic white matter changes, as above.
[2023-08-10 17:55] VITALS: BP 112/79; PULSE 65; RESP 16; TEMP 36.5; O2SAT 96
[2023-08-10] MEDS: ACETAMINOPHEN 500 MG TABLET 1000 MG PO (18:15)
--- NOTE | 2023-08-10 18:21 | ED.FALL ---
HPI - Fall General Chief Complaint: Fall Stated Complaint: fall Time Seen by Provider: 08/10/23 18:05 Source: patient Mode of arrival: EMS Limitations: no limitations History of Present Illness HPI Narrative: Patient is an 78-year-old female, with PMH of UC, who presents to the ED via EMS with report of a fall. Patient is a resident of [facility]. She reports she lost her footing today and fell. She fell backwards and hit her head on the ground. She did not lose consciousness. She sustained a hematoma behind her R ear. She also c/o pain to her L shoulder. Denies neck or back pain, dizziness, lightheadedness, vision changes, nausea, vomiting, chest pain, difficulty breathing, numbness, weakness. Patient takes aspirin 81 mg daily. Related Data Home Medications Medication Instructions Recorded Confirmed amlodipine 5 mg tablet 5 mg PO DAILY 08/18/21 06/03/23 aspirin 81 mg tablet 81 mg PO HS 08/18/21 06/03/23 mesalamine 0.375 gram 0.75 g PO BID 08/18/21 06/03/23 capsule,extended release 24 hr metoprolol tartrate 50 mg tablet 50 mg PO BID 08/18/21 06/03/23 multivitamin with minerals 1 tablet PO DAILY 08/18/21 06/03/23 pantoprazole 40 mg tablet,delayed 40 mg PO QPM 08/18/21 06/03/23 release Dialyvite Vitamin D 2,000 units PO DAILY 06/03/23 06/03/23 azathioprine 100 mg tablet 100 mg PO DAILY 06/03/23 06/03/23 ferrous sulfate 324 mg (65 mg 324 mg PO DAILY 06/03/23 06/03/23 iron) tablet,delayed release lamotrigine 100 mg tablet 100 mg PO BID 06/03/23 06/03/23 metformin 750 mg tablet,extended 750 mg PO DAILY 06/03/23 06/03/23 release 24 hr vedolizumab 300 mg DIRECTED 06/03/23 06/03/23 Allergies Allergy/AdvReac Type Severity Reaction Status Date / Time Penicillins Allergy Rash Verified 08/10/23 18:05 Review of Systems Review of Systems: CONSTITUTIONAL: Denies fever, chills, or sweats. ENT: Denies vision changes. MUSCULOSKELETAL: See HPI. NEUROLOGIC: See HPI. All systems reviewed & are unremarkable except as noted in HPI and below PMFSH Past Medical History Medical History Deafness in right ear Gastroesophageal reflux disease Hyperlipidemia Hypertension Prediabetes Ulcerative colitis Surgical History Surgical History History of dilation and curettage History of hip surgery Left hip surgery. Family History Family History Mother Diabetes mellitus Hypertension Cancer Cerebrovascular accident Afib Father Cancer Social History Social History Social History: Lives in [place]. Nonsmoker. No alcohol or illicit substance use. 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 Surrogate decision maker: Aby Riley, daughter. Code status: Full code. Smoking status: Never smoker Alcohol intake: never Substance use: never Substance use type: does not use Lack of Transportation: No Lack of Food: Never True Current Housing: Decline to Answer Concerned About Future Housing: No Difficulty Paying Gas/Electric Bills: No Difficulty Paying for Meds: No Currently Unemployed: No Education: Decline to Answer Difficulty w/ Childcare or Family Care: No Spiritual care concerns: No Exam Narrative: GENERAL: Elderly, well-nourished, non-toxic, in no acute distress. HEAD: Normocephalic. Large hematoma to right posterior auricular region with ecchymosis present. No wounds, drainage, bleeding. 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 Pupils reactive bilaterally, conjunctiva clear. EOMI, no pain with eye movements. NECK: Supple, no significant midline spinal tenderness. RESPIRATORY: Airway patent, respirations nonlabored. Clear to auscultation bilaterally, no rales, rhonchi, wheezing. CARDIO
[2023-08-10 18:54] VITALS: BP 143/85; PULSE 66; RESP 17; O2SAT 96
--- NOTE | 2023-08-10 19:12 | PC.NURSE ---
Report given to Letitia BORREGO, all questions answered
[2023-08-10 19:39] VITALS: BP 159/70; PULSE 70; RESP 18; TEMP 36.6; O2SAT 97
== END 2023-08-10 19:45 | disposition home or self-care (01) ==
PROVIDERS: Emergency Provider Physician Assistant; PCP Family Medicine
DX: S00.03XA Contusion of scalp, initial encounter (principal); S49.92XA Unspecified injury of left shoulder and upper arm, initial encounter; I10 Essential (primary) hypertension; E78.5 Hyperlipidemia, unspecified; R73.03 Prediabetes; K51.90 Ulcerative colitis, unspecified, without complications; K21.9 Gastro-esophageal reflux disease without esophagitis; Z79.82 Long term (current) use of aspirin; W01.0XXA Fall on same level from slipping, tripping and stumbling without subsequent striking against object, initial encounter
CPT/HCPCS: 70450; 72125; 73030; 99284; A9270

== ENCOUNTER 2024-03-20 13:10 | Inpatient (IN) | payer MEDICARE, SELFPAY ==
[2024-03-20] VITALS (34 sets, daily range): BP systolic 116–166; BP diastolic 47–91; PULSE 64–73; RESP 14–23; TEMP 36.6–36.9; O2SAT 92–100; BMI 28.0
--- NOTE | ~2024-03-20 | CT_ITS ---
EXAMINATION: CT brain wo con DATE: 03/20/2024 15:32 INDICATION: AMS . TECHNIQUE: Computed tomography (CT) of the head was performed without intravenous contrast. The mA wa s adjusted according to patient size. Iterative reconstruction technique was employed. The dose-lengt h product was 605.33 mGy-cm. COMPARISON: 08/10/2023. FINDINGS: No acute intracranial hemorrhage or extra-axial fluid collection. No hydrocephalus, mass, or herniation. No acute ischemic infarct. Unremarkable dural venous sinus attenuation. No acute osseous abnormality. The aerated spaces are clear. Mild atrophy and moderate chronic white matter change. Atherosclerotic intracranial calcification. Fo gustavo old left caudate head lacunar infarct. Right lens replacement. IMPRESSION: No acute intracranial process. Reviewed, dictated and finalized at location K.
--- NOTE | ~2024-03-20 | XR_ITS ---
EXAMINATION: XR chest 1V portable Exam Date/Time: 03/20/2024 14:50 CDT HISTORY: AMS Comparison: 06/07/2023. RESULT: Lines, tubes, and devices: None. Lungs and pleura: Subsegmental left basilar airspace disease. Mild left costophrenic angle blunting. Minimal streaky scar/atelectasis in the right lung base. Cardiomediastinal silhouette: Stable. Other: No acute osseous or upper abdominal finding. IMPRESSION: Subsegmental left basilar atelectasis/consolidation. Small left pleural effusion. Reviewed, dictated and finalized at location K. IMPRESSION: Subsegmental left basilar atelectasis/consolidation. Small left pleural effusio n.
--- NOTE | 2024-03-20 14:17 | ED.AMS ---
HPI - Altered Mental Status General Chief Complaint: Altered Mental Status Stated Complaint: AMS Time Seen by Provider: 03/20/24 13:10 History of Present Illness HPI narrative: 78-year-old female with history of ulcerative colitis, hypertension, seizure disorder presenting with altered mental status. Patient's daughter and granddaughter are at bedside and help with the history. They state that the patient does sometimes have some mild memory problems but her baseline is a and O x3. States that whenever she has a seizure sometimes she seems were confused or says things that do not make sense. They received a call from her facility today stating that she was saying things that did not make sense. Patient denies any pain, nausea, dysuria who hematuria. Patient's granddaughter states that she has been having increasingly frequent urinary incontinence. She is currently alert and oriented x3. Related Data Home Medications Medication Instructions Recorded Confirmed amlodipine 5 mg tablet 5 mg PO DAILY 08/18/21 03/20/24 mesalamine 0.375 gram 0.75 g PO BID 08/18/21 03/20/24 capsule,extended release 24 hr metoprolol tartrate 50 mg tablet 50 mg PO BID 08/18/21 03/20/24 multivitamin with minerals 1 tablet PO DAILY 08/18/21 03/20/24 pantoprazole 40 mg tablet,delayed 40 mg PO QPM 08/18/21 03/20/24 release ferrous sulfate 324 mg (65 mg 324 mg PO DAILY 06/03/23 03/20/24 iron) tablet,delayed release metformin 750 mg tablet,extended 750 mg PO DAILY 06/03/23 03/20/24 release 24 hr vedolizumab 300 mg DIRECTED 06/03/23 03/20/24 aspirin 81 mg capsule 81 mg PO HS 03/20/24 03/20/24 buspirone 5 mg tablet 5 mg PO BID 03/20/24 03/20/24 losartan 100 mg tablet 100 mg PO HS 03/20/24 03/20/24 pravastatin 40 mg tablet 40 mg PO DAILY 03/20/24 03/20/24 rivastigmine 4.6 mg/24 hour 4.6 mg topical HS 03/20/24 03/20/24 transdermal patch Allergies Allergy/AdvReac Type Severity Reaction Status Date / Time Penicillins Allergy Rash Verified 03/20/24 13:27 Review of Systems Review of Systems: All systems reviewed & are unremarkable except as noted in HPI and below [facility] Past Medical History Medical History (Updated 03/23/24 @ 11:58 by Anna Marie Goff MD) 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 Family History Family History Mother Diabetes mellitus Hypertension Cancer Cerebrovascular accident Afib Father Cancer Social History Social History Social History: Lives in [place]. Nonsmoker. No alcohol or illicit substance use. 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 Surrogate decision maker: Aby Riley, daughter. Code status: Full code. Smoking status: Never smoker Alcohol intake: never Substance use: never Substance use type: does not use Do You Feel Safe in your Home?: Yes Lack of Transportation: No Lack of Food: Never True Current Housing: I Have Housing Concerned About Future Housing: No Difficulty Paying Gas/Electric Bills: No Difficulty Paying for Meds: No Currently Unemployed: No Education: High School Diploma/GED Difficulty w/ Childcare or Family Care: No Spiritual care concerns: No Exam Narrative: GENERAL: Elderly female sitting up in bed in no acute distress, very pleasant cooperative HEAD: Normocephalic, atraumatic. EYES: PERRLA and EOMI. ENT: Mucous membranes moist. NECK: Supple. CHEST: Clear to auscultation. No respiratory distress. HEART: Regular rate and rhythm ABDOMEN: Soft, nontender, nondistended EXTREMITIES: Normal range of motion. No edema. SKI
[2024-03-20 15:17] LABS: Basophils Absolute Auto 0.1 K/mm3 (0.0-0.1); Basophils Percent Auto 0.7 % (0.2-1.2); Eosinophils Absolute Auto 0.2 K/mm3 (0-0.3); Eosinophils Percent Auto 2.4 % (0-4.4); Hemoglobin 15.1 g/dL (12.0-15.0); Immature Granulocyte Absolute 0.05 K/mm3 (0.00-0.031); Immature Granulocyte Percent A 0.5 % (0-0.5); Lymphocytes Absolute Auto 1.58 K/mm3 (0.9-3.2); Lymphocytes Percent Auto 17.2 % (18.3-44.2); Mean Corpuscular HGB Conc 32.1 g/dl (32-36); Mean Corpuscular Hemoglobin 29.5 pg (26-34); Mean Corpuscular Volume 91.8 fl (80-100); Mean Platelet Volume 9.3 fl (7.4-10.4); Monocytes Absolute Auto 0.6 K/mm3 (0.1-0.6); Monocytes Percent Auto 6.1 % (2.6-8.5); Neutrophils Absolute Auto 6.7 K/mm3 (1.3-6.7); Neutrophils Percent Auto 73.1 % (45.5-73.1); Platelet Count Result 280 k/mm3 (150-375); Red Blood Count 5.12 M/mm3 (4.2-5.4); Red Cell Distribution Width 12.5 % (11.5-14.5); White Blood Count 9.2 K/mm3 (4.5-10.0)
[2024-03-20 15:27] LABS: Add Urine Microscopic? YES; Appearance Urine Clear (Clear); Bacteria Urine None Seen /hpf; Bilirubin Urine Negative (Negative); Blood Urine Trace (Negative); Color Urine Yellow (Yellow); Glucose Urine UA Negative (Negative); Ketones Urine Negative (Negative); Leukocyte Esterase Ur Trace LEU/UL (Negative); Nitrate Urine Negative (Negative); Non Pathogenic Casts 0-2; Protein Urine Negative (Negative); RBC Urine 0-2 /hpf (0-2); Specific Grav Ur 1.005 (1.001-1.035); Squamous Epithelial Cell Urine None Seen /hpf (Few); Urobilinogen Urine 0.2 mg/dL (<2.0); WBC Urine 0-5 /hpf (0-3); pH Urine 6.5 (5.0-9.0)
[2024-03-20 15:30] LABS: Alanine Aminotransferase 20 U/L (6-35); Albumin Level 4.6 g/dL (3.5-5.1); Alkaline Phosphatase 132 U/L (38-126); Anion Gap 10 mmol/L (4-12); Aspartate Amino Transferase 28 U/L (14-36); Bilirubin,Total 0.3 mg/dL (0.2-1.3); Blood Urea Nitrogen 20 mg/dL (7-17); Calcium 9.7 mg/dL (8.4-10.2); Carbon Dioxide 30 mmol/L (22-30); Chloride 97 mmol/L (98-107); Estimated CRCL calculation 40 ml/min; Estimated Glomerular Filt Rate 60; Glucose 113 mg/dL (65-110); Potassium 4.2 mmol/L (3.4-5.0); Sodium 137 mmol/L (137-145)
[2024-03-20] MEDS: LACOSAMIDE (*CRX) 100 MG TABLET PO (17:03)
[2024-03-20] MEDS: lamoTRIgine 100 MG TABLET PO (17:03)
[2024-03-20] MEDS: lamoTRIgine 25 MG TABLET PO (17:03)
[2024-03-20 18:09] LABS: Influenza A QL RT-PCR Negative (Negative); Influenza B QL RT-PCR Negative (Negative); RSV RNA, RT-PCR Negative (Negative); SARS-CoV-2 RNA PCR Negative (Negative)
--- NOTE | 2024-03-20 19:37 | PM.IMHP ---
H&P: HPI History of Present Illness Date/Time: 03/20/24 19:37 Chief Complaint: seizure Narrative: this is an 78-year-old female with past medical history significant for hypertension, diabetes, GERD, ulcerative colitis. Patient presents to the emergency room after having seizure episode. Preliminary workup was significant for chest x-ray with infiltrates. Patient denies any fevers, rigors, chills, cough, sputum production, shortness of breath, headaches, vision changes. Patient has been admitted for further evaluation management and treatment. EXAMINATION: XR chest 1V portable Exam Date/Time: 03/20/2024 14:50 CDT HISTORY: AMS Comparison: 06/07/2023. RESULT: Lines, tubes, and devices: None. Lungs and pleura: Subsegmental left basilar airspace disease. Mild left costophrenic angle blunting. Minimal streaky scar/atelectasis in the right lung base. Cardiomediastinal silhouette: Stable. Other: No acute osseous or upper abdominal finding. IMPRESSION: Subsegmental left basilar atelectasis/consolidation. Small left pleural effusion. EXAMINATION: CT brain wo con DATE: 03/20/2024 15:32 INDICATION: AMS . TECHNIQUE: Computed tomography (CT) of the head was performed without intravenous contrast. The mA was adjusted according to patient size. Iterative reconstruction technique was employed. The dose-length product was 605.33 mGy-cm. COMPARISON: 08/10/2023. FINDINGS: No acute intracranial hemorrhage or extra-axial fluid collection. No hydrocephalus, mass, or herniation. No acute ischemic infarct. Unremarkable dural venous sinus attenuation. No acute osseous abnormality. The aerated spaces are clear. Mild atrophy and moderate chronic white matter change. Atherosclerotic intracranial calcification. 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 Right lens replacement. IMPRESSION: No acute intracranial process. [facility] Past Medical History Medical History Deafness in right ear Gastroesophageal reflux disease Hyperlipidemia Hypertension Prediabetes Ulcerative colitis Surgical History Surgical History History of dilation and curettage History of hip surgery Left hip surgery. Family History Family History Mother Diabetes mellitus Hypertension Cancer Cerebrovascular accident Afib Father Cancer Social History Social History Social History: Lives in [facility]. Nonsmoker. No alcohol or illicit substance use. 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 Surrogate decision maker: Aby Riley, daughter. Code status: Full code. Smoking status: Never smoker Alcohol intake: never Substance use: never Substance use type: does not use Do You Feel Safe in your Home?: Yes Lack of Transportation: No Lack of Food: Never True Current Housing: I Have Housing Concerned About Future Housing: No Difficulty Paying Gas/Electric Bills: No Difficulty Paying for Meds: No Currently Unemployed: No Education: High School Diploma/GED Difficulty w/ Childcare or Family Care: No Spiritual care concerns: No Meds Home Medications and Allergies Home Medications Medication Instructions Recorded Confirmed Type amlodipine 5 mg tablet 5 mg PO DAILY 08/18/21 03/20/24 History mesalamine 0.375 gram 0.75 g PO BID 08/18/21 03/20/24 History capsule,extended release 24 hr metoprolol tartrate 50 mg tablet 50 mg PO BID 08/18/21 03/20/24 History multivitamin with minerals 1 tablet PO DAILY 08/18/21 03/20/24 History pantoprazole 40 mg tablet,delayed 40 mg PO QPM 08/18/21 03/20/24 History release ferrous sulfate 324 mg (65 mg 324 mg PO DAILY 06/03/23 03/20/24 History iron) tablet,delayed release lamotrigine 100 mg tablet 100 mg PO BID
--- NOTE | 2024-03-20 19:45 | ADMGEN ---
This patient, Lisa Allen, was admitted to 2 Medical Room 255-01. Patient/family oriented to hospital policies and general routines including ID bracelet, bed and alarms, visiting hours, pain management, procedures, bathroom and other care routines, personal items, smoking policy, room service/diet, and visiting hours. Information on how to activate the Rapid Response Team has been discussed. Patient/Family are encouraged to report perceived risks to care and to ask questions if they do not understand what they are told or what they should do.
[2024-03-21] VITALS (11 sets, daily range): BP systolic 144–145; BP diastolic 58–69; PULSE 56–88; RESP 16–18; TEMP 36.6; O2SAT 93–100
[2024-03-21] MEDS: amLODIPine BESYLATE 5 MG TABLET PO (09:17)
[2024-03-21] MEDS: lamoTRIgine 25 MG TABLET 125 MG PO (09:17)
[2024-03-21] MEDS: busPIRone HCL 5 MG TABLET PO ×2 (09:17→20:31)
[2024-03-21] MEDS: FERROUS SULFATE 325 MG TABLET DR PO (09:17)
[2024-03-21] MEDS: MESALAMINE 250 MG CAP CR 750 MG PO ×2 (09:17→18:45)
[2024-03-21] MEDS: ASPIRIN 81 MG CHEWABLE TABLET PO (09:17)
[2024-03-21] MEDS: METOPROLOL TARTRATE 50 MG TAB PO ×2 (09:17→20:31)
[2024-03-21] MEDS: LACOSAMIDE (*CRX) 100 MG TABLET PO ×2 (09:17→20:31)
[2024-03-21] MEDS: PRAVASTATIN SODIUM 20 MG TABLET 40 MG PO (09:17)
[2024-03-21 11:50] LABS: Glucose Point of Care 149 mg/dl (65-105)
--- NOTE | 2024-03-21 15:25 | P.PNIM_ITS ---
Progress Note: A&P Assessment and Plan (1) Epilepsy: Code(s): G40.909 - Epilepsy, unspecified, not intractable, without status epilepticus Status: Acute Assessment and Plan: patient has a history of seizures recently diagnosed in May 2023. she was taking Lamictal 100 mg b.i.d.. Yesterday she had an episode where she seemed to be staring off into space with involuntary lip movement and confusion * neurology was consulted in the ER and recommended increasing her Lamictal 125 mg b.i.d. and adding Vimpat 100 mg b.i.d. * seizure precautions * p.r.n. Ativan 2 mg for active seizure * EEG ordered * may consider MRI on Friday as no MRIs are being performed during the weekend * monitor for 24 hours seizure free prior to discharging back to previous living arrangements. (2) Alteration in speech: Code(s): R47.89 - Other speech disturbances Status: Acute Assessment and Plan: Concerns for breakthrough seizure versus infectious etiology versus stroke versus TIA * seizure workup as above * consider MRI tomorrow to rule out stroke * urinalysis is not concerning for infection. * Chest x-ray is concerning for left basilar consolidation with atelectasis. The patient is completely asymptomatic and lung sounds are clear. She received IV antibiotics in the emergency room. Will treat with oral antibiotics. * Patient is afebrile, without leukocytosis (3) Lung infiltrate: Code(s): R91.8 - Other nonspecific abnormal finding of lung field Status: Acute Assessment and Plan: left lower lobe lung infiltrate with atelectasis on x-ray. White count is normal and patient is not febrile. She denies chest pain, shortness of breath, cough, fever, or chills. * She received Rocephin and azithromycin in the ER * transition oral antibiotics Augmentin and azithromycin and treat for 5 days * repeat x-ray if increased shortness of breath or new oxygen requirement * Incentive spirometer, PEP therapy * Mucinex BID and prn nebs as needed for shortness of breath (4) Hypertension: Code(s): I10 - Essential (primary) hypertension Status: Acute Assessment and Plan: patient takes losartan 100 mg daily, amlodipine 5 mg daily metoprolol tartrate 50 mg b.i.d. * blood pressures reviewed 03/21 * continue home medications * monitor daily Plan DVT prophylaxis: SCDs Glycemic control: holding metformin. A.c. HS Accu-Cheks. Low-dose sliding scale insulin. Code Status: Full code Disposition: 78-year-old female who presents with concerns for confusion and alterations in speech. neurology has been consulted. Seizure medications have been adjusted. She was placed on seizure precautions. Also concern for possible pneumonia. She is being treated with oral antibiotics. EEG ordered an MRI planned for tomorrow. Medication reconciliation obtained via the following: Nurse completed on ad mission The file time of this note does not necessarily represent the time the patient was seen. Subjective Date/time seen: 03/21/24 15:25 Interval history: This is an 78-year-old female with a past medical history is significant for GERD, hyperlipidemia, hypertension, diabetes, ulcerative colitis, and seizures who presented to the emergency room with concerns for breakthrough seizure. According to the medical chart the patient was brought to the emergency room a fter an episode of not making sense. She was having episodes of blank
--- NOTE | 2024-03-21 15:25 | PM.IMPN ---
Progress Note: A&P Assessment and Plan (1) Epilepsy: Code(s): G40.909 - Epilepsy, unspecified, not intractable, without status epilepticus Status: Acute Assessment and Plan: patient has a history of seizures recently diagnosed in May 2023. she was taking Lamictal 100 mg b.i.d.. Yesterday she had an episode where she seemed to be staring off into space with involuntary lip movement and confusion neurology was consulted in the ER and recommended increasing her Lamictal 125 mg b.i.d. and adding Vimpat 100 mg b.i.d. seizure precautions p.r.n. Ativan 2 mg for active seizure EEG ordered may consider MRI on Friday as no MRIs are being performed during the weekend monitor for 24 hours seizure free prior to discharging back to previous living arrangements. (2) Alteration in speech: Code(s): R47.89 - Other speech disturbances Status: Acute Assessment and Plan: Concerns for breakthrough seizure versus infectious etiology versus stroke versus TIA seizure workup as above consider MRI tomorrow to rule out stroke urinalysis is not concerning for infection. Chest x-ray is concerning for left basilar consolidation with atelectasis. The patient is completely asymptomatic and lung sounds are clear. She received IV antibiotics in the emergency room. Will treat with oral antibiotics. Patient is afebrile, without leukocytosis (3) Lung infiltrate: Code(s): R91.8 - Other nonspecific abnormal finding of lung field Status: Acute Assessment and Plan: left lower lobe lung infiltrate with atelectasis on x-ray. White count is normal and patient is not febrile. She denies chest pain, shortness of breath, cough, fever, or chills. She received Rocephin and azithromycin in the ER transition oral antibiotics Augmentin and azithromycin and treat for 5 days repeat x-ray if increased shortness of breath or new oxygen requirement Incentive spirometer, PEP therapy Mucinex BID and prn nebs as needed for shortness of breath (4) Hypertension: Code(s): I10 - Essential (primary) hypertension Status: Acute Assessment and Plan: patient takes losartan 100 mg daily, amlodipine 5 mg daily metoprolol tartrate 50 mg b.i.d. blood pressures reviewed 03/21 continue home medications monitor daily Plan DVT prophylaxis: SCDs Glycemic control: holding metformin. A.c. HS Accu-Cheks. Low-dose sliding scale insulin. Code Status: Full code Disposition: 78-year-old female who presents with concerns for confusion and alterations in speech. neurology has been consulted. Seizure medications have been adjusted. She was placed on seizure precautions. Also concern for possible pneumonia. She is being treated with oral antibiotics. EEG ordered an MRI planned for tomorrow. Medication reconciliation obtained via the following: Nurse completed on admission The file time of this note does not necessarily represent the time the patient was seen. Subjective Date/time seen: 03/21/24 15:25 Interval history: This is an 78-year-old female with a past medical history is significant for GERD, hyperlipidemia, hypertension, diabetes, ulcerative colitis, and seizures who presented to the emergency room with concerns for breakthrough seizure. According to the medical chart the patient was brought to the emergency room after an episode of not making sense. She was having episodes of blank stairs and smacking of her lips. The patient's granddaughter commented that the patient would not talk for 4 minute straight. When she did come back and started talking she was confused. When I see the patient today she is sitting in the chair in no acute distress. I asked her why she is at the hospital and she states she does not know. I then asked her about her seizure disord
[2024-03-21 17:34] LABS: Glucose Point of Care 143 mg/dl (65-105)
--- NOTE | 2024-03-21 18:28 | WPDNEURCNPN ---
Assessment and Plan Assessment and plan (1) Complex partial seizures: Code(s): G40.209 - Localization-related (focal) (partial) symptomatic epilepsy and epileptic syndromes with complex partial seizures, not intractable, without status epilepticus Status: Acute (2) MCI (mild cognitive impairment): Code(s): G31.84 - Mild cognitive impairment of uncertain or unknown etiology Status: Acute Plan I suggested to increase the dose of Lamictal to 125 mg twice a day for 1 week and then 150 mg twice a day to continue. Since we could not increase the dose of Lamictal rapidly due to the risk of rash I advised to add lacosamide 100 mg twice a day as a backup the patient is by herself and does have dementia and I alerted the caregivers that sometimes 1 May have unwitnessed seizure also. Given the history I would suggest that she will require at least higher dose of Lamictal if tolerated. The lacosamide has been added but can be withdrawn gradually. Patient continues to follow-up at [facility] the neurologist over there and I encouraged them to continue to do so. They may reduce the dose of lacosamide to stop once she is stable on Lamictal. The dose of Lamictal can be increased further if tolerated depending upon the individual taking care of this decision. She is also on Exelon patch. I have advised the daughter that the any problems as a local hospital and a neurologist services which should be glad to assist and they should maintain the relationship with [facility] as before. I noted that she has had fair amount of workup from cerebrovascular disease point of view. She is on pravastatin 40 mg a day. Consult date: 03/21/24 HPI: Lisa Allen is a 78 year old female history of Seizure disorder diagnosed in February 2023. She is currently resident of a in assisted living. Patient's daughter was present at the time of evaluation. Apparently she had a spell where she the button to get help from the staff the assisted living thinking that something was going to happen and they found her confused and not be able to talk. The spell lasted for about 4 minutes. She did not have any tongue biting or fall or incontinence of urine. In the hospital emergency room here she had another spell which was similar. She was doing very well since he was seen at [facility] and started on Lamictal. She has been taking Lamictal 100 mg twice a day and does not have any problem with that. She also thought to have dementia and she is on Exelon patch. She follows up with Dr. Adan at [facility]. She was also and on Keppra at 1 time but that did not agree with her due to agitation and that is why she was started on Lamictal. She was admitted to this hospital May 2023. An EEG done at the time did show significant abnormality. MRI of the brain and carotid Doppler studies were also performed. Carotid Doppler her shown moderate to large plaques in both carotid bulbs. EEG was normal. MRI did not show any acute abnormalities. A few areas suspicious of microhemorrhages and mild diffuse volume loss and moderate scattered nonspecific white matter T2 hyperintensities consistent with chronic small vessel ischemic disease were also described. 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 A CT angiogram of the head and neck was performed on 06/05/2023 which did not show any significant pathology. The patient also has history of diabetes mellitus, hypertension and ulcerative colitis. At the time of this evaluation the patient feels he is back to her normal self. In the assisted living home where she moved in June of 2023 she requires some assistance with shower due to poor balance. Review of Systems Review of Systems: History of mild memory loss and ataxia. No history of recent fall or injuries or i
[2024-03-21] MEDS: AZITHROMYCIN 250 MG TABLET 500 MG PO (18:44)
[2024-03-21] MEDS: PANTOPRAZOLE 40 MG TABLET PO (18:45)
[2024-03-21] MEDS: guaiFENesin 12 HR 600 MG TABCR 1200 MG PO (18:45)
[2024-03-21] MEDS: lamoTRIgine 100 MG TABLET PO (20:31)
[2024-03-21] MEDS: LOSARTAN POTASSIUM 100 MG TABLET PO (20:31)
[2024-03-21] MEDS: lamoTRIgine 25 MG TABLET PO (20:31)
[2024-03-21 21:30] LABS: Glucose Point of Care 138 mg/dl (65-105)
[2024-03-21] MEDS: levoFLOXacin 750 MG TABLET PO (21:38)
[2024-03-22] VITALS (13 sets, daily range): BP systolic 154–158; BP diastolic 61–69; PULSE 61–80; RESP 14–20; TEMP 36.1–36.9; O2SAT 96–98
--- NOTE | 2024-03-22 | ECG_ITS ---
Test Date: 2024-03-22 09:58:51 Measurements Intervals Fertile Rate: 61 P: 61 NH: 188 QRS: 36 QRSD: 83 T: 39 QT: 378 QTc: 382 Interpretive Statements SINUS RHYTHM NONSPECIFIC ST SEGMENT ABNORMALITY BORDERLINE ECG No previous ECG available for comparison Electronically Signed On 03-23-2024 07:19:45 CDT by Teofilo Tang M.D.
[2024-03-22 08:03] LABS: Basophils Absolute Auto 0.1 K/mm3 (0.0-0.1); Basophils Percent Auto 0.6 % (0.2-1.2); Eosinophils Absolute Auto 0.2 K/mm3 (0-0.3); Eosinophils Percent Auto 1.8 % (0-4.4); Immature Granulocyte Absolute 0.05 K/mm3 (0.00-0.031); Immature Granulocyte Percent A 0.5 % (0-0.5); Lymphocytes Absolute Auto 1.76 K/mm3 (0.9-3.2); Lymphocytes Percent Auto 16.3 % (18.3-44.2); Mean Corpuscular HGB Conc 31.9 g/dl (32-36); Mean Corpuscular Hemoglobin 29.2 pg (26-34); Mean Corpuscular Volume 91.4 fl (80-100); Mean Platelet Volume 9.2 fl (7.4-10.4); Monocytes Absolute Auto 0.9 K/mm3 (0.1-0.6); Monocytes Percent Auto 8.1 % (2.6-8.5); Neutrophils Absolute Auto 7.9 K/mm3 (1.3-6.7); Neutrophils Percent Auto 72.7 % (45.5-73.1); Platelet Count Result 267 k/mm3 (150-375); Red Blood Count 5.14 M/mm3 (4.2-5.4); Red Cell Distribution Width 12.5 % (11.5-14.5); White Blood Count 10.8 K/mm3 (4.5-10.0)
[2024-03-22 08:25] LABS: Glucose Point of Care 140 mg/dl (65-105)
[2024-03-22 08:25] LABS: Alanine Aminotransferase 17 U/L (6-35); Albumin Level 4.2 g/dL (3.5-5.1); Alkaline Phosphatase 98 U/L (38-126); Anion Gap 10 mmol/L (4-12); Aspartate Amino Transferase 22 U/L (14-36); Bilirubin,Total 0.5 mg/dL (0.2-1.3); Blood Urea Nitrogen 20 mg/dL (7-17); Calcium 9.2 mg/dL (8.4-10.2); Carbon Dioxide 29 mmol/L (22-30); Chloride 97 mmol/L (98-107); Estimated CRCL calculation 40 ml/min; Estimated Glomerular Filt Rate 60; Glucose 137 mg/dL (65-110); Magnesium 1.9 mg/dL (1.6-2.3); Potassium 3.6 mmol/L (3.4-5.0); Sodium 136 mmol/L (137-145)
[2024-03-22] MEDS: PRAVASTATIN SODIUM 20 MG TABLET 40 MG PO (08:47)
[2024-03-22] MEDS: amLODIPine BESYLATE 5 MG TABLET PO (08:48)
[2024-03-22] MEDS: busPIRone HCL 5 MG TABLET PO ×2 (08:48→20:48)
[2024-03-22] MEDS: LACOSAMIDE (*CRX) 100 MG TABLET PO ×2 (08:48→20:48)
[2024-03-22] MEDS: lamoTRIgine 100 MG TABLET PO ×2 (08:48→20:48)
[2024-03-22] MEDS: guaiFENesin 12 HR 600 MG TABCR 1200 MG PO ×2 (08:48→20:48)
[2024-03-22] MEDS: FERROUS SULFATE 325 MG TABLET DR PO (08:49)
[2024-03-22] MEDS: ASPIRIN 81 MG CHEWABLE TABLET PO (08:49)
[2024-03-22] MEDS: METOPROLOL TARTRATE 50 MG TAB PO ×2 (08:49→20:48)
[2024-03-22] MEDS: lamoTRIgine 25 MG TABLET PO ×2 (08:51→20:48)
[2024-03-22] MEDS: MESALAMINE 250 MG CAP CR 750 MG PO ×2 (08:52→17:36)
[2024-03-22 12:06] LABS: Glucose Point of Care 186 mg/dl (65-105)
--- NOTE | 2024-03-22 14:09 | PM.IMPN ---
Progress Note: A&P Assessment and Plan (1) Epilepsy: Code(s): G40.909 - Epilepsy, unspecified, not intractable, without status epilepticus Status: Acute Assessment and Plan: patient has a history of seizures recently diagnosed in May 2023. she was taking Lamictal 100 mg b.i.d.. Yesterday she had an episode where she seemed to be staring off into space with involuntary lip movement and confusion neurology was consulted in the ER and recommended increasing her Lamictal 125 mg b.i.d. and adding Vimpat 100 mg b.i.d. seizure precautions p.r.n. Ativan 2 mg for active seizure monitor for 24 hours seizure free prior to discharging back to previous living arrangements. (2) Alteration in speech: Code(s): R47.89 - Other speech disturbances Status: Acute Assessment and Plan: Concerns for breakthrough seizure versus infectious etiology versus stroke versus TIA seizure workup as above consider MRI tomorrow to rule out stroke urinalysis is not concerning for infection. Chest x-ray is concerning for left basilar consolidation with atelectasis. The patient is completely asymptomatic and lung sounds are clear. She received IV antibiotics in the emergency room. Will treat with oral antibiotics. Patient is afebrile, without leukocytosis (3) Lung infiltrate: Code(s): R91.8 - Other nonspecific abnormal finding of lung field Status: Acute Assessment and Plan: left lower lobe lung infiltrate with atelectasis on x-ray. White count is normal and patient is not febrile. She denies chest pain, shortness of breath, cough, fever, or chills. She received Rocephin and azithromycin in the ER transition oral antibiotics Augmentin and azithromycin and treat for 5 days repeat x-ray if increased shortness of breath or new oxygen requirement Incentive spirometer, PEP therapy Mucinex BID and prn nebs as needed for shortness of breath (4) Hypertension: Code(s): I10 - Essential (primary) hypertension Status: Acute Assessment and Plan: patient takes losartan 100 mg daily, amlodipine 5 mg daily metoprolol tartrate 50 mg b.i.d. blood pressures reviewed 03/21 continue home medications monitor daily (5) Nausea: Code(s): R11.0 - Nausea Status: Acute Assessment and Plan: Patient had an episode of vomiting today after lunch and yesterday. She normally does not have issues with nausea or vomiting. Last BM 03/20 in the ED per her granddaughter. Denies abdominal pain is passing flatus Will give 1 L of fluids P.r.n. Napoleon Nausea could be related to increased dose of her Lamictal Plan DVT prophylaxis: SCDs Glycemic control: holding metformin. A.c. HS Accu-Cheks. Low-dose sliding scale insulin. Code Status: Full code Disposition: 78-year-old female who presents with concerns for confusion and alterations in speech. neurology has been consulted. Seizure medications have been adjusted. She was placed on seizure precautions. Also concern for possible pneumonia. She is being treated with oral antibiotics. EEG ordered an MRI planned for tomorrow. Medication reconciliation obtained via the following: Nurse completed on admission The file time of this note does not necessarily represent the time the patient was seen. Subjective Date/time seen: 03/22/24 14:09 Interval history: This is an 78-year-old female with a past medical history is significant for GERD, hyperlipidemia, hypertension, diabetes, ulcerative colitis, and seizures who presented to the emergency room with concerns for breakthrough seizure. According to the medical chart the patient was brought to the emergency room after an episode of not making sense. She was having episodes of blank stairs and smacking of her lips. The patient's granddaughter commen
[2024-03-22] MEDS: ONDANSETRON HCL ODT 4 MG TABLET PO (14:23)
[2024-03-22] MEDS: SODIUM CHLORIDE 0.9% IV 1,000 ML 250 ML IV CONT (14:23)
[2024-03-22 17:19] LABS: Glucose Point of Care 99 mg/dl (65-105)
[2024-03-22] MEDS: PANTOPRAZOLE 40 MG TABLET PO (17:36)
[2024-03-22] MEDS: LOSARTAN POTASSIUM 100 MG TABLET PO (20:49)
[2024-03-22 21:38] LABS: Glucose Point of Care 220 mg/dl (65-105)
[2024-03-23] VITALS: PULSE 62
[2024-03-23 04:00] VITALS: PULSE 58
[2024-03-23 04:49] VITALS: BP 139/58; PULSE 63; RESP 17; TEMP 36.7; O2SAT 96
[2024-03-23 06:09] LABS: Basophils Percent Auto 0.5 % (0.2-1.2); Eosinophils Absolute Auto 0.3 K/mm3 (0-0.3); Eosinophils Percent Auto 3.3 % (0-4.4); Hematocrit 42.9 % (37.0-47.0); Hemoglobin 13.7 g/dL (12.0-15.0); Immature Granulocyte Absolute 0.04 K/mm3 (0.00-0.031); Immature Granulocyte Percent A 0.5 % (0-0.5); Lymphocytes Absolute Auto 2.14 K/mm3 (0.9-3.2); Lymphocytes Percent Auto 25.1 % (18.3-44.2); Mean Corpuscular HGB Conc 31.9 g/dl (32-36); Mean Corpuscular Hemoglobin 29.8 pg (26-34); Mean Corpuscular Volume 93.3 fl (80-100); Mean Platelet Volume 9.4 fl (7.4-10.4); Monocytes Absolute Auto 0.9 K/mm3 (0.1-0.6); Monocytes Percent Auto 10.8 % (2.6-8.5); Neutrophils Absolute Auto 5.1 K/mm3 (1.3-6.7); Neutrophils Percent Auto 59.8 % (45.5-73.1); Platelet Count Result 226 k/mm3 (150-375); Red Cell Distribution Width 12.7 % (11.5-14.5); White Blood Count 8.5 K/mm3 (4.5-10.0)
[2024-03-23 06:21] LABS: Alanine Aminotransferase 14 U/L (6-35); Albumin Level 3.4 g/dL (3.5-5.1); Alkaline Phosphatase 82 U/L (38-126); Anion Gap 7 mmol/L (4-12); Aspartate Amino Transferase 20 U/L (14-36); Bilirubin,Total 0.5 mg/dL (0.2-1.3); Blood Urea Nitrogen 16 mg/dL (7-17); Calcium 8.7 mg/dL (8.4-10.2); Carbon Dioxide 26 mmol/L (22-30); Chloride 105 mmol/L (98-107); Estimated CRCL calculation 45 ml/min; Estimated Glomerular Filt Rate > 60; Glucose 120 mg/dL (65-110); Potassium 3.6 mmol/L (3.4-5.0); Sodium 138 mmol/L (137-145)
[2024-03-23 08:04] VITALS: PULSE 64
[2024-03-23 08:28] LABS: Glucose Point of Care 125 mg/dl (65-105)
[2024-03-23] MEDS: lamoTRIgine 100 MG TABLET PO (08:53)
[2024-03-23] MEDS: PRAVASTATIN SODIUM 20 MG TABLET 40 MG PO (08:53)
[2024-03-23] MEDS: LACOSAMIDE (*CRX) 100 MG TABLET PO (08:53)
[2024-03-23] MEDS: ASPIRIN 81 MG CHEWABLE TABLET PO (08:53)
[2024-03-23] MEDS: MESALAMINE 250 MG CAP CR 750 MG PO (08:53)
[2024-03-23 08:54] VITALS: PULSE 64; RESP 18; O2SAT 96
[2024-03-23] MEDS: lamoTRIgine 25 MG TABLET PO (08:54)
[2024-03-23] MEDS: busPIRone HCL 5 MG TABLET PO (08:54)
[2024-03-23] MEDS: amLODIPine BESYLATE 5 MG TABLET PO (08:54)
[2024-03-23] MEDS: guaiFENesin 12 HR 600 MG TABCR 1200 MG PO (08:54)
[2024-03-23] MEDS: FERROUS SULFATE 325 MG TABLET DR PO (08:54)
[2024-03-23] MEDS: METOPROLOL TARTRATE 50 MG TAB PO (08:54)
--- NOTE | 2024-03-23 11:47 | PM.DS ---
DS: Admitting Diagnosis Discharge Date 03/23 Admitting Diagnosis ams DS: Discharge Diagnosis Discharge Diagnosis (1) Epilepsy: Code(s): G40.909 - Epilepsy, unspecified, not intractable, without status epilepticus Status: Acute Assessment and Plan: patient has a history of seizures recently diagnosed in May 2023. she was taking Lamictal 100 mg b.i.d.. Yesterday she had an episode where she seemed to be staring off into space with involuntary lip movement and confusion neurology was consulted in the ER and recommended increasing her Lamictal 125 mg b.i.d. and adding Vimpat 100 mg b.i.d. seizure precautions p.r.n. Ativan 2 mg for active seizure monitor for 24 hours seizure free prior to discharging back to previous living arrangements. (2) Alteration in speech: Code(s): R47.89 - Other speech disturbances Status: Acute Assessment and Plan: Concerns for breakthrough seizure versus infectious etiology versus stroke versus TIA seizure workup as above consider MRI tomorrow to rule out stroke urinalysis is not concerning for infection. Chest x-ray is concerning for left basilar consolidation with atelectasis. The patient is completely asymptomatic and lung sounds are clear. She received IV antibiotics in the emergency room. Will treat with oral antibiotics. Patient is afebrile, without leukocytosis (3) Lung infiltrate: Code(s): R91.8 - Other nonspecific abnormal finding of lung field Status: Acute Assessment and Plan: left lower lobe lung infiltrate with atelectasis on x-ray. White count is normal and patient is not febrile. She denies chest pain, shortness of breath, cough, fever, or chills. She received Rocephin and azithromycin in the ER transition oral antibiotics Augmentin and azithromycin and treat for 5 days repeat x-ray if increased shortness of breath or new oxygen requirement Incentive spirometer, PEP therapy Mucinex BID and prn nebs as needed for shortness of breath (4) Hypertension: Code(s): I10 - Essential (primary) hypertension Status: Acute Assessment and Plan: patient takes losartan 100 mg daily, amlodipine 5 mg daily metoprolol tartrate 50 mg b.i.d. blood pressures reviewed 03/21 continue home medications monitor daily (5) Nausea: Code(s): R11.0 - Nausea Status: Acute Assessment and Plan: Patient had an episode of vomiting today after lunch and yesterday. She normally does not have issues with nausea or vomiting. Last BM 03/20 in the ED per her granddaughter. Denies abdominal pain is passing flatus Will give 1 L of fluids P.r.n. Napoleon Nausea could be related to increased dose of her Lamictal Plan DVT prophylaxis: SCDs Glycemic control: holding metformin. A.c. HS Accu-Cheks. Low-dose sliding scale insulin. Code Status: Full code Disposition: 78-year-old female who presents with concerns for confusion and alterations in speech. neurology has been consulted. Seizure medications have been adjusted. She was placed on seizure precautions. Also concern for possible pneumonia. She is being treated with oral antibiotics. EEG ordered an MRI planned for tomorrow. Medication reconciliation obtained via the following: Nurse completed on admission The file time of this note does not necessarily represent the time the patient was seen. DS: Summary Hospital Course Reason for hospitalization: breakthrough seizure Hospital Course: This is an 78-year-old female with a past medical history is significant for GERD, hyperlipidemia, hypertension, diabetes, ulcerative colitis, and seizures who presented to the emergency room with concerns for breakthrough seizure. According to the medical chart the patient was brought to the emergency room after an episode of not cristiano
[2024-03-23 12:02] LABS: Glucose Point of Care 130 mg/dl (65-105)
[2024-03-23 14:00] VITALS: BP 140/78; PULSE 60; RESP 18; TEMP 36.2; O2SAT 97
== END 2024-03-23 14:39 | DRG 101 ==
LOC: ANHED 13:34 → ANH3MEDSUR 18:42 → ANH2MED 19:33
PROVIDERS: Admitting Provider Family Medicine; Emergency Provider Emergency Medicine; PCP Family Medicine; Visit Provider Nurse Practitioner Acute Care
DX: G40.909 Epilepsy, unspecified, not intractable, without status epilepticus (principal); R47.89 Other speech disturbances; G31.84 Mild cognitive impairment of uncertain or unknown etiology; R91.8 Other nonspecific abnormal finding of lung field; I10 Essential (primary) hypertension; K21.9 Gastro-esophageal reflux disease without esophagitis; E78.5 Hyperlipidemia, unspecified; R73.03 Prediabetes; R11.2 Nausea with vomiting, unspecified; T42.6X5A Adverse effect of other antiepileptic and sedative-hypnotic drugs, initial encounter; Z20.822 Contact with and (suspected) exposure to COVID-19; Z87.19 Personal history of other diseases of the digestive system
CPT/HCPCS: 36415; 70450; 71045; 80053; 81001; 82948; 83735; 85025; 87040; 87637; 93005; 94667; 97161; 97165; 99285; A9270; G0378; J7030

== ENCOUNTER 2024-04-16 18:38 | Emergency (ER) | payer MEDICARE, SELFPAY ==
--- NOTE | ~2024-04-16 | CT_ITS ---
CT brain wo con Ordering provider: Paige Laguna PA-C History: 79 years Female with . AMS, seizure . Comparison: March 20, 2024 Technique: CT of the head without contrast. Radiation reduction technique utilized. DLP is 605.33 mGy-cm FINDINGS: BRAIN PARENCHYMA AND CSF SPACES: Mild leukoaraiosis and diffuse cortical atrophy. Mild atheromatous d isease. No midline shift, mass effect or hemorrhage. The brain parenchyma and CSF spaces are otherwi se normal. VISUALIZED PARANASAL SINUSES: Well aerated. MASTOIDS: Well aerated. BONES: The bones appear intact. SOFT TISSUES: Visualized nasopharynx is normal. Superficial soft tissues are normal. IMPRESSION: No acute intracranial findings. Reviewed, dictated and finalized at location A.
--- NOTE | ~2024-04-16 | XR_ITS ---
XR chest 1V portable Ordering provider: Paige Laguna PA-C History: 79 years Female with . AMS . Comparison: March 20, 2024 FINDINGS: MEDIASTINUM: The cardiac silhouette is slightly enlarged. Prominent right hilum. Calcified lymph node s in the elizabeth. LUNGS: No infiltrates, effusions or pneumothorax. Fibrotic changes of the lungs. OTHER: No free air under the diaphragm. Fracture of the right third and sixth rib. Degenerative Chavez es of the spine. IMPRESSION: Fracture right side third and sixth rib. No acute lung lesion. Reviewed, dictated and finalized at location A.
--- NOTE | ~2024-04-16 | XR_ITS ---
XR hip RT 2V w AP pelvis Ordering provider: Paige Laguna PA-C History: . pain AFTER SEIZURE TO RIGHT BUTTOCK AREA . Comparison: None. FINDINGS: BONES: No acute fracture or dislocation. HIP JOINT SPACES: Left hip arthroplasty with postoperative changes in the femur. Right hip mild to mo derate osteoarthritic changes. SACROILIAC JOINT SPACES/LUMBAR SPINE: The sacroiliac joint spaces shows bilaterally osteoarthritis. M ild degenerative changes of the visualized lower lumbar spine. PUBIC SYMPHYSIS: Pubic symphysitis. SOFT TISSUES: Normal. IMPRESSION: No acute osseous abnormality pelvis and right hip. Reviewed, dictated and finalized at location A.
[2024-04-16 18:48] VITALS: PULSE 78; RESP 30; TEMP 37; O2SAT 93
[2024-04-16 19:03] VITALS: BP 143/66; PULSE 76; RESP 16; TEMP 37; O2SAT 94
--- NOTE | 2024-04-16 19:57 | ECG_ITS ---
Test Date: 2024-04-16 20:46:16 Measurements Intervals [place] Rate: 76 P: 40 [place]: 153 QRS: 18 QRSD: 90 T: 19 QT: 354 QTc: 400 Interpretive Statements SINUS RHYTHM VOLTAGE CRITERIA FOR LVH BASELINE ARTIFACT- I, III, AVR, AVL, AVF BORDERLINE ECG Compared to ECG 03/22/2024 09:58:51 NO SIGNIFICANT CHANGE Electronically Signed On 04-17-2024 08:10:52 CDT by Rahat Guzmán D.O.
--- NOTE | 2024-04-16 20:01 | ED.SEIZURE ---
HPI - Seizure General Chief Complaint: Seizure Stated Complaint: unresponsive Time Seen by Provider: 04/16/24 19:46 History of Present Illness HPI Narrative: 79-year-old female with history of epilepsy, hypertension, UC presents to the emergency department via EMS from [facility] for concerns for breakthrough seizure and unresponsive episode. Patient's daughter is at bedside to assist with history. States the patient was boarding a bus from [facility] when staff witnessed her having a seizure. She states that staff reported the seizure lasted 10 minutes. EMS was contacted the patient was transported here. She states this occurred around 6:00 p.m. this evening and the patient is yet to return to her baseline mental status. States she is normally A&O x3. She denies known head injury or trauma, chest pain or shortness of breath, abdominal pain, N/V/D. Of note patient was admitted to our hospital for similar episode on 03/20/2024. Her Lamictal dose was increased from 100 mg BID to 125 mg BID and she was started on Vimpat. Patient's daughter states that they followed up with their neurologist at [facility] and the Vimpat was discontinued on April 07, 2024, and Lamictal was increased to 150 mg BID. Pt has been compliant with her medications. Seizure History: Yes Related Data Home Medications Medication Instructions Recorded Confirmed amlodipine 5 mg tablet 5 mg PO DAILY 08/18/21 03/20/24 mesalamine 0.375 gram 0.75 g PO BID 08/18/21 03/20/24 capsule,extended release 24 hr metoprolol tartrate 50 mg tablet 50 mg PO BID 08/18/21 03/20/24 multivitamin with minerals 1 tablet PO DAILY 08/18/21 03/20/24 pantoprazole 40 mg tablet,delayed 40 mg PO QPM 08/18/21 03/20/24 release ferrous sulfate 324 mg (65 mg 324 mg PO DAILY 06/03/23 03/20/24 iron) tablet,delayed release metformin 750 mg tablet,extended 750 mg PO DAILY 06/03/23 03/20/24 release 24 hr vedolizumab 300 mg DIRECTED 06/03/23 03/20/24 aspirin 81 mg capsule 81 mg PO HS 03/20/24 03/20/24 buspirone 5 mg tablet 5 mg PO BID 03/20/24 03/20/24 losartan 100 mg tablet 100 mg PO HS 03/20/24 03/20/24 pravastatin 40 mg tablet 40 mg PO DAILY 03/20/24 03/20/24 rivastigmine 4.6 mg/24 hour 4.6 mg topical HS 03/20/24 03/20/24 transdermal patch Allergies Allergy/AdvReac Type Severity Reaction Status Date / Time Penicillins Allergy Rash Verified 03/20/24 13:27 Review of Systems Review of Systems: All systems reviewed & are unremarkable except as noted in HPI and below PMFSH Past Medical History Medical History 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 Family History Family History Mother Diabetes mellitus Hypertension Cancer Cerebrovascular accident Afib Father Cancer Social History Social History Social History: Lives in [place]. Nonsmoker. No alcohol or illicit substance use. 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 Surrogate decision maker: Aby Riley, daughter. Code status: Full code. Smoking status: Never smoker Alcohol intake: never Substance use: never Substance use type: does not use Do You Feel Safe in your Home?: Yes Lack of Transportation: No Lack of Food: Never True Current Housing: I Have Housing Concerned About Future Housing: No Difficulty Paying Gas/Electric Bills: No Difficulty Paying for Meds: No Currently Unemployed: No Education: High School Diploma/GED Difficulty w/ Childcare or Family Care: No Spiritual care concerns: No Exam
[2024-04-16 20:34] LABS: Fractional Inspired Oxygen 21 %; HCO3 VBG 27.5 mEq/l (24.0-30.0); PCO2 VBG 47.6 mmHg (42.0-48.0); PO2 VBG 27.3 mmHg (35.0-45.0)
[2024-04-16 20:35] LABS: Basophils Absolute Auto 0.1 K/mm3 (0.0-0.1); Basophils Percent Auto 0.5 % (0.2-1.2); Device ROOM AIR; Eosinophils Absolute Auto 0.3 K/mm3 (0-0.3); Eosinophils Percent Auto 2.6 % (0-4.4); Hematocrit 46.1 % (37.0-47.0); Hemoglobin 14.9 g/dL (12.0-15.0); Immature Granulocyte Absolute 0.06 K/mm3 (0.00-0.031); Immature Granulocyte Percent A 0.6 % (0-0.5); Lymphocytes Absolute Auto 1.27 K/mm3 (0.9-3.2); Lymphocytes Percent Auto 13.2 % (18.3-44.2); Mean Corpuscular HGB Conc 32.3 g/dl (32-36); Mean Corpuscular Hemoglobin 29.6 pg (26-34); Mean Corpuscular Volume 91.5 fl (80-100); Monocytes Absolute Auto 0.6 K/mm3 (0.1-0.6); Monocytes Percent Auto 5.8 % (2.6-8.5); Neutrophils Absolute Auto 7.4 K/mm3 (1.3-6.7); Neutrophils Percent Auto 77.3 % (45.5-73.1); Platelet Count Result 277 k/mm3 (150-375); Red Blood Count 5.04 M/mm3 (4.2-5.4); White Blood Count 9.6 K/mm3 (4.5-10.0)
[2024-04-16 20:39] LABS: Add Urine Microscopic? YES; Appearance Urine Clear (Clear); Bacteria Urine None Seen /hpf; Bilirubin Urine Negative (Negative); Blood Urine Non-Hemolyzed Trace (Negative); Color Urine Yellow (Yellow); Glucose Urine UA Negative (Negative); Ketones Urine Negative (Negative); Leukocyte Esterase Ur Trace LEU/UL (Negative); Nitrate Urine Negative (Negative); Non Pathogenic Casts 0-2; Protein Urine 1+ mg/dL (Negative); Specific Grav Ur 1.008 (1.001-1.035); Squamous Epithelial Cell Urine None Seen /hpf (Few); Urobilinogen Urine 0.2 mg/dL (<2.0); WBC Urine 0-5 /hpf (0-3); pH Urine 6.5 (5.0-9.0)
[2024-04-16 20:41] VITALS: BP 151/65; PULSE 72; RESP 18; O2SAT 95
[2024-04-16 20:44] LABS: Glucose Point of Care 168 mg/dl (65-105)
[2024-04-16 20:44] LABS: Lactic Acid Reflex 2.5 mmol/L (0.7-2.0)
[2024-04-16 20:45] LABS: Alanine Aminotransferase 19 U/L (6-35); Albumin Level 4.5 g/dL (3.5-5.1); Alkaline Phosphatase 125 U/L (38-126); Anion Gap 11 mmol/L (4-12); Aspartate Amino Transferase 25 U/L (14-36); Bilirubin,Total 0.3 mg/dL (0.2-1.3); Blood Urea Nitrogen 18 mg/dL (7-17); Calcium 9.8 mg/dL (8.4-10.2); Carbon Dioxide 27 mmol/L (22-30); Chloride 99 mmol/L (98-107); Creatine Kinase 74 U/L (30-135); Estimated Glomerular Filt Rate > 60; Glucose 178 mg/dL (65-110); Potassium 4.3 mmol/L (3.4-5.0); Sodium 137 mmol/L (137-145)
[2024-04-16 20:47] LABS: Prothrombin Time 13.2 Seconds (11.1-14.7)
[2024-04-16 20:56] LABS: Troponin I < 0.012 ng/mL (0.000-0.034)
[2024-04-16] MEDS: SODIUM CHLORIDE 0.9% IV 1,000 ML 999 ML IV CONT (21:13)
[2024-04-16 22:12] VITALS: BP 168/72; PULSE 73; RESP 12; TEMP 36.9; O2SAT 95
[2024-04-16 22:59] LABS: Lactic Acid Reflex 1.6 mmol/L (0.7-2.0)
[2024-04-16 23:33] LABS: Reflex Lactic Acid Yes or No Add Lactic
[2024-04-17] MEDS: lamoTRIgine 100 MG TABLET PO (00:02)
[2024-04-17] MEDS: lamoTRIgine 25 MG TABLET 75 MG PO (00:02)
[2024-04-17 00:07] VITALS: BP 164/70; PULSE 79; RESP 16; O2SAT 98
[2024-04-17 03:23] VITALS: BP 160/84; PULSE 82; RESP 16; O2SAT 100
[2024-04-21 10:48] LABS: Lamotrigine Lamictal 6.7 mcg/mL (2.5-15.0)
== END 2024-04-17 03:24 | disposition home or self-care (01) ==
PROVIDERS: Emergency Provider Physician Assistant; PCP Family Medicine
DX: G40.209 Localization-related (focal) (partial) symptomatic epilepsy and epileptic syndromes with complex partial seizures, not intractable, without status epilepticus (principal); I10 Essential (primary) hypertension; K21.9 Gastro-esophageal reflux disease without esophagitis; E78.5 Hyperlipidemia, unspecified; R73.03 Prediabetes; H91.91 Unspecified hearing loss, right ear
CPT/HCPCS: 36415; 70450; 71045; 73502; 80053; 80175; 81001; 82550; 82803; 82948; 83605; 84443; 84484; 85025; 85610; 85730; 93005; 96360; 96361; 99284; A9270; J7030

== ENCOUNTER 2024-06-08 01:14 | Emergency (ER) | payer MEDICARE, SELFPAY ==
--- NOTE | ~2024-06-08 | XR_ITS ---
Right Knee Technique: AP, lateral, and sunrise views were obtained. Clinical History: Pain Findings: No fracture or dislocation is seen. Osseous alignment is anatomic. There is moderate patell ofemoral compartment degenerative change. There is mild degenerative change of the medial lateral com partments. Soft tissues are unremarkable. No joint effusion is seen. Impression: No acute abnormality. Degenerative changes, as noted above. Reviewed, dictated and finalized at location M. PPER Impression: No acute abnormality. Degenerative changes, as noted above.
--- NOTE | ~2024-06-08 | CT_ITS ---
CT head without contrast Indication: Head injury COMPARISON: 04/16/2024 Technique: Serial scans were obtained through the brain without the administration of contrast. Dose reduction technique was used on this scan by utilizing automated exposure control and iterative recon struction technique. The dose-length product (DLP) was 681.00 mGy-cm. Findings: There is no evidence of intracranial hemorrhage, mass lesion, or acute infarct. The ventri cles and subarachnoid spaces are dilated, consistent with mild atrophy. Low attenuation regions are seen within the periventricular white matter bilaterally, likely representing changes from chronic mi crovascular ischemic disease. There is no evidence of edema, mass effect or midline shift. The visu alized paranasal sinuses and mastoid air cells are clear. Impression: No intracranial hemorrhage, mass, or acute infarct. Atrophy and chronic white matter changes, as above. Reviewed, dictated and finalized at [facility]. TICAL NURSING FACULTY Impression: No intracranial hemorrhage, mass, or acute infarct. Atrophy and chronic white matter changes, as above.
--- NOTE | ~2024-06-08 | CT_ITS ---
Noncontrast CT scan of the cervical spine Technique: Multiple contiguous axial [address] images of the cervical spine were obtained and rec onstructed in 2D sagittal and coronal planes on the acquisition scanner. Dose reduction technique was used on this scan by utilizing automated exposure control, adjustment of the mA and/or kV according to patient size. The dose-length product (DLP) was 240.57 mGy-cm. Clinical History: Pain COMPARISON: 08/10/2023 Findings: No fractures or dislocations. There are minimal degenerative disc changes in the cervical spine. There are minimal facet joint degenerative changes in the cervical spine. Probable minimal ericka ateral neural foraminal narrowing at C5-C6. No prevertebral soft tissue swelling. Impression: No fracture or subluxation of the cervical spine. Minimal degenerative change, as above. Reviewed, dictated and finalized at [facility]. L BUILDINGS ASSEMBLER Impression: No fracture or subluxation of the cervical spine. Minimal degenerative change, as above.
[2024-06-08 01:15] VITALS: BP 148/67; PULSE 59; RESP 15; TEMP 36.5; O2SAT 95
[2024-06-08] MEDS: ACETAMINOPHEN 325 MG TABLET 650 MG PO (01:27)
--- NOTE | 2024-06-08 01:39 | ED_ITS ---
HPI - Fall General Chief Complaint: Fall <NAMAN Velasquez Last Filed: 06/09/24 01:11> Stated Complaint: FALL OFF OF BED <NAMAN Velasquez Last Filed: 06/09/24 01:11> Time Seen by Provider: 06/08/24 01:14 <NAMAN Velasquez Last Filed: 06/09/24 01:11> History of Present Illness HPI Narrative: 79-year-old female presents to the ED via EMS from [facility] for a ground level fall. Patient states she went to get out of bed to go to the bathroom, attempted to put her socks on and slipped out of bed. States she landed on the floor and hit the front of her head on the floor. No LOC fluids she is reporting pain to the right front of her head and neck as well as pain to her right knee. She is not anticoagulated but does take a daily aspirin. Denies other injuries acquired. <NAMAN Velasquez Last Filed: 06/09/24 01:11> Related Data Home Medications: Home Medications Medication Instructions Recorded Confirmed amlodipine 5 mg tablet 5 mg PO DAILY 08/18/21 03/20/24 mesalamine 0.375 gram 0.75 g PO BID 08/18/21 03/20/24 capsule,extended release 24 hr metoprolol tartrate 50 mg tablet 50 mg PO BID 08/18/21 03/20/24 multivitamin with minerals 1 tablet PO DAILY 08/18/21 03/20/24 pantoprazole 40 mg tablet,delayed 40 mg PO QPM 08/18/21 03/20/24 release ferrous sulfate 324 mg (65 mg 324 mg PO DAILY 06/03/23 03/20/24 iron) tablet,delayed release metformin 750 mg tablet,extended 750 mg PO DAILY 06/03/23 03/20/24 release 24 hr vedolizumab 300 mg DIRECTED 06/03/23 03/20/24 aspirin 81 mg capsule 81 mg PO HS 03/20/24 03/20/24 buspirone 5 mg tablet 5 mg PO BID 03/20/24 03/20/24 losartan 100 mg tablet 100 mg PO HS 03/20/24 03/20/24 pravastatin 40 mg tablet 40 mg PO DAILY 03/20/24 03/20/24 rivastigmine 4.6 mg/24 hour 4.6 mg topical HS 03/20/24 03/20/24 transdermal patch <Paige Laguna PA-C - Last Filed: 06/09/24 01:11> Allergies/Adverse Reactions: Allergies Allergy/AdvReac Type Severity Reaction Status Date / Time Penicillins Allergy Rash Verified 03/20/24 13:27 <Paige Laguna PA-C - Last Filed: 06/09/24 01:11> Review of Systems Review of Systems: All systems reviewed & are unremarkable except as noted in HPI and below <Paige Laguna PA-C - Last Filed: 06/09/24 01:11> [facility] Past Medical History Medical History: Medical History 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 <Paige Laguna PA-C - Last Filed: 06/09/24 01:11> Family History Family History: Family History Mother Diabetes mellitus Hypertension Cancer Cerebrovascular accident Afib Father Cancer <Paige Laguna PA-C - Last Filed: 06/09/24 01:11> Social History Social History: Social History Social History: Lives in [place]. Nonsmoker. No alcohol or illicit substance use. 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 Surrogate decision maker: Aby Riley, daughter. Code status: Full code. Smoking status: Never smoker Alcohol intake: never Substance use: never Substance use type: does not use Do You Feel Safe in your Home?: Yes Lack of Transportation: No Lack of Food: Never True Current Housing: I Have Housing Concerned About Future Housing: No Difficulty Paying Gas/Electric Bills: No Difficulty Paying for Meds: No Currently Unemployed: No Education: High School Diploma/GED Difficulty w/ Childcare or Family Care: No Spiritual care concerns: No <NAMAN Velasquez Last Filed: 06/09/24 01:11> Exam Narrative: GENERAL: Well-appearing, well-nourished, and in no acute distress. HEAD: Normocephalic, atraumatic. EYES: PERRLA and EOMI. ENT: Nares clear, no rhinorrhea or epistaxis. Mucous membranes moist. NECK: No significant midline spinous tenderness, step-offs or deformities. BACK: No midline other lumbar spinous tenderness, step-offs or deformities CHEST: Clear to auscultation. No respiratory distress. HEART: Regular rate and rhythm. No murmur heard. Normal peripheral pulses. ABDOMEN: Soft, nontender, nondistended, normal active bowel sounds. EXTREMITIES: Minimal diffuse tenderness to the right knee with full active and passive range of motion. No overlying skin changes, no deformity. No ecchymosis. DP pulse 2 +. Sensation intact. No tenderness to remainder of upper or lower extremities. SKIN: Warm, dry, no rash. NEURO: No focal deficits. Alert and oriented x3. Moving all extremities sponta neously. Sensation intact throughout <NAMAN Velasquez Last Filed: 06/09/24 01:11> Course Vital Signs Vital signs: Vital Signs Temperature 97.7 F 06/08/24 01:15 Pulse Rate 59 L 06/08/24 01:15 Respiratory Rate 15 06/08/24 01:15 Blood Pressure 148/67 H 06/08/24 01:15 Pulse Oximetry 95 06/08/24 01:15 Oxygen Delivery Room Air 06/08/24 01:15 Temperature 98.3 F 06/08/24 03:50 Pulse Rate 56 L 06/08/24 03:50 Respiratory Rate 18 06/08/24 03:50 Blood Pressure 140/64 06/08/24 03:50 Pulse Oximetry 97 06/08/24 03:50 Oxygen Delivery Room Air 06/08/24 01:15 <Paige Laguna PA-C - Last Filed: 06/09/24 01:11> Vital Signs Temperature 97.7 F 06/08/24 01:15 Pulse Rate 59 L 06/08/24 01:15 Respiratory Rate 15 06/08/24 01:15 Blood Pressure 148/67 H 06/08/24 01:15 Pulse Oximetry 95 06/08/24 01:15 Oxygen Delivery Room Air 06/08/24 01:15 Temperature 98.3 F 06/08/24 03:50 Pulse Rate 56 L 06/08/24 03:50 Respiratory Rate 18 06/08/24 03:50 Blood Pressure 140/64 06/08/24 03:50 Pulse Oximetry 97 06/08/24 03:50 Oxygen Delivery Room Air 06/08/24 01:15 <Mica Jernigan MD - Last Filed: 06/08/24 04:24> MDM - Fall MDM Narrative Medical decision making narrative: 79-year-old female presents emergency department via EMS from [facility] after a ground level mechanical fall that occurred prior to arrival. See HPI for further history. Vitals are stable. Exam is significant for the above. Pending CT brain and cervical spine, as well as R knee xray at time of sign-out to Dr. Jernigan. <Paige Laguna PA-C - Last Filed: 06/09/24 01:11> 79-year-old female presents emergency department via EMS from [facility] after a ground level mechanical fall that occurred prior to arrival. See HPI for further history. Vitals are stable. Exam is significant for the above. Pending CT brain and cervical spine, as well as R knee xray at time of sign-out to Dr. Jernigan. (Rere): Imaging returns without acute process. I did evaluate patient at bedside and she states she has feeling okay. We discussed the findings of her imaging. Stable for discharge back to the facility. Advised the facility offer acetaminophen p.r.n. for pain. <Mica Jernigan MD - Last Filed: 06/08/24 04:24> Imaging Data Radiologist's impression: CT C SPine STAT RAD: No acute traumatic abnormality identified. Incidental findings: Degenerative changes of the spine. Atherosclerotic changes of the vasculature. Calcification in the left thyroid lobe could be further evaluated with ultrasound if clinically indicated. CT Head STAT RAD: No acute intracranial abnormality identified. Incidental findings: Chronic small-vessel ischemic disease and cerebral volume loss. Right lens implant XR Right Knee 4 views Stat Rad: No displaced fracture or dislocation identified. Mild degenerative changes in the medial and lateral compartments. Moderate degenerative change in the patellofemoral compartment. <Mica Jernigan MD - Last Filed: 06/08/24 04:24> Discharge Plan Discharge Clinical Impression: Fall, Degenerative joint disease of spine, Degenerative joint disease of knee, right <Paige Laguna PA-C - Last Filed: 06/09/24 01:11> Patient Disposition: NH Senior Care/Asst Living <NAMAN Velasquez Last Filed: 06/09/24 01:11> Condition: Stable <NAMAN Velasquez Last Filed: 06/09/24 01:11> Instructions: Antibiotic Form, Fall Prevention for Older Adults (ED), Degenerative Disc Disease (ED) <Paige Laguna PA-C - Last Filed: 06/09/24 01:11> Additional Instructions: No bleeding in the brain or fracture of the bones the neck. Patient will likely be sore and achy over the next several days and should be offered acetaminophen as needed. Follow-up with primary care physician or hospital medical assistant at the facility. Return to the emergency department with any new or worsening symptoms. Calcification in the left thyroid lobe could be further evaluated with ultrasound if clinically indicated. <Paige Laguna PA-C - Last Filed: 06/09/24 01:11> Prescriptions: New acetaminophen 650 mg tablet extended release 650 mg PO Q8H PRN (Reason: pain) Qty: 20 0RF No Action amlodipine 5 mg tablet 5 mg PO DAILY pantoprazole 40 mg tablet,delayed release (DR/EC) 40 mg PO QPM metoprolol tartrate 50 mg tablet 50 mg PO BID mesalamine 0.375 gram capsule,extended release 24hr 0.75 g PO BID multivitamin with minerals Tablet 1 tablet PO DAILY metformin 750 mg tablet extended release 24 hr 750 mg PO DAILY vedolizumab 300 mg 300 mg DIRECTED Rx Instructions: Every 8 weeks ferrous sulfate 324 mg (65 mg iron) tablet,delayed release (DR/EC) 324 mg PO DAILY buspirone 5 mg tablet 5 mg PO BID pravastatin 40 mg tablet 40 mg PO DAILY losartan 100 mg tablet 100 mg PO HS rivastigmine 4.6 mg/24 hour patch 24 hour 4.6 mg topical HS aspirin 81 mg Capsule 81 mg PO HS lamotrigine [Lamictal] 25 mg Tablet 25 mg PO Q12HR Qty: 60 0RF lamotrigine [Lamictal] 100 mg Tablet 100 mg PO Q12HR Qty: 60 0RF levofloxacin 750 mg tablet 750 mg PO DAILY Qty: 1 0RF Rx Instructions: Take your final tablet on 03/22/24. lacosamide [Vimpat] 100 mg tablet 100 mg PO Q12H Qty: 60 0RF lamotrigine 200 mg tablet 200 mg PO BID Qty: 60 1RF lamotrigine 25 mg tablet 25 mg PO BID 14 Days Qty: 28 0RF <Paige Laguna PA-C - Last Filed: 06/09/24 01:11> Follow-up/Referrals: Yelitza,Servando Bernstein MD [Primary Care Provider] - <Paige Laguna PA-C - Last Filed: 06/09/24 01:11> Stand Alone Forms: Skilled Nursing Discharge <Paige Laguna PA-C - Last Filed: 06/09/24 01:11> Time of Disposition: 03:41 <Paige Laguna PA-C - Last Filed: 06/09/24 01:11> 03:41 <Mica Jernigan MD - Last Filed: 06/08/24 04:24>
[2024-06-08 03:50] VITALS: BP 140/64; PULSE 56; RESP 18; TEMP 36.8; O2SAT 97
--- NOTE | 2024-06-08 05:17 | PC.NURSE ---
Patient's daughter came to nut picker patient to return patient back to [facility]. Attempted to call [facility], but no clear line of phone connection was ever established
== END 2024-06-08 05:17 ==
PROVIDERS: Emergency Provider Student in an Organized Health Care Education/Training Program; PCP Family Medicine
DX: M47.819 Spondylosis without myelopathy or radiculopathy, site unspecified (principal); M17.11 Unilateral primary osteoarthritis, right knee; W18.30XA Fall on same level, unspecified, initial encounter; Z79.82 Long term (current) use of aspirin; K21.9 Gastro-esophageal reflux disease without esophagitis; I10 Essential (primary) hypertension
CPT/HCPCS: 70450; 72125; 73564; 99284; A9270

== ENCOUNTER 2024-06-10 01:30 | Emergency (ER) | payer MEDICARE, SELFPAY ==
[2024-06-10] VITALS (7 sets, daily range): BP systolic 156–185; BP diastolic 67–74; PULSE 57–59; RESP 16–21; O2SAT 90–96
--- NOTE | ~2024-06-10 | XR_ITS ---
AP view of the pelvis and AP and lateral views of the left hip Clinical history: Pain Findings: No acute fracture or dislocation is seen. Left hip arthroplasty in place. There is mild to moderate degenerative change of the right hip joint. Soft tissues are unremarkable. Impression: No acute fracture or dislocation. Left hip arthroplasty with additional mid left femoral orthopedic hardware. Degenerative change of the right hip, as above. Reviewed, dictated and finalized at location M. ORATE SECRETARY Impression: No acute fracture or dislocation. Left hip arthroplasty with additional mid left femoral orthopedic hardware. Degenerative change of the right hip, as above.
--- NOTE | ~2024-06-10 | CT_ITS ---
Non-contrast CT scan of the Pelvis Clinical indication: Trauma Technique: 2.5 mm axial scans were obtained through the pelvis without intravenous or oral contrast. Dose reduction technique was used on this scan by utilizing automated exposure control and iterative reconstruction technique. The dose-length product (DLP) was 368.85 mGy-cm. Findings: Urinary bladder unremarkable. No adnexal mass seen. No ascites. Visualized bowel loops are unremarkable. No pelvic lymphadenopathy seen. Left hip arthroplasty in place. No acute fracture or dislocation. There is moderate degenerative ball ge of the right hip joint, joint space narrowing and mild osteophyte formation. There is moderate deg enerative change of both SI joints. No soft tissue mass or fluid collection evident. Impression: No acute fracture or dislocation. Left hip arthroplasty. Degenerative changes, as above. Reviewed, dictated and finalized at [facility]. ENT COORDINATOR Impression: No acute fracture or dislocation. Left hip arthroplasty. Degenerative changes, as above.
--- NOTE | ~2024-06-10 | CT_ITS ---
CT head without contrast Indication: Head injury COMPARISON: 06/08/2024 Technique: Serial scans were obtained through the brain without the administration of contrast. Dose reduction technique was used on this scan by utilizing automated exposure control and iterative recon struction technique. The dose-length product (DLP) was 605.33 mGy-cm. Findings: There is no evidence of intracranial hemorrhage, mass lesion, or acute infarct. The ventri cles and subarachnoid spaces are dilated, consistent with mild atrophy. Low attenuation regions are seen within the periventricular white matter bilaterally, likely representing changes from chronic mi crovascular ischemic disease. There is no evidence of edema, mass effect or midline shift. The visu alized paranasal sinuses and mastoid air cells are clear. Impression: No intracranial hemorrhage, mass, or acute infarct. Atrophy and chronic white matter changes, as above. Reviewed, dictated and finalized at [facility]. DE SALES ENGINEER Impression: No intracranial hemorrhage, mass, or acute infarct. Atrophy and chronic white matter changes, as above.
--- NOTE | ~2024-06-10 | CT_ITS ---
Noncontrast CT scan of the lumbar spine CLINICAL HISTORY: Trauma TECHNIQUE: Axial noncontrast imaging of the lumbar spine was performed. Sagittal and coronal reformat gabe images were constructed. Dose reduction technique was used on this scan by utilizing automated ex posure control and iterative reconstruction technique. The dose-length product (DLP) was 1210.17 mGy- cm. FINDINGS: There is no acute fracture or subluxation of the lumbar spine. Vertebral bodies maintain no rmal height and alignment. At L1-L2, there is advanced degenerative disc narrowing. There is minimal disc bulge and minimal face t arthropathy. No central canal stenosis. There is moderate right neural foraminal narrowing. Left ne ural foramen preserved. At L2-L3, there is mild disc bulge. No spinal canal stenosis. There is moderate bilateral neural fora lorenzo narrowing. L3-L4, there is disc bulge and moderate facet arthropathy, with probable moderate central canal steno sis. There is moderate to advanced bilateral neural foraminal narrowing. At L4-L5, there is disc bulge and moderate to advanced facet arthropathy. There is probable moderate central canal stenosis. There is mild bilateral neural foraminal narrowing. At L5-S1, there is disc bulge and facet arthropathy. No central canal stenosis. There is severe left neural foraminal narrowing, and moderate to severe right neural foraminal narrowing. Paravertebral soft tissues are unremarkable. Nonobstructing right renal stones are present. Impression: No acute, posttraumatic abnormality. 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 Reviewed, dictated and finalized at [facility]. ER LEVELER Impression: No acute, posttraumatic abnormality. 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
--- NOTE | ~2024-06-10 | XR_ITS ---
Portable chest x-ray Comparison: 04/16/2024 Clinical History: Status post fall Findings: There is mild central congestive change. No focal consolidation or pleural effusion. Card iomediastinal silhouette is stable. Bones and soft tissues are unremarkable. Impression: Mild central congestive change. Stable cardiomegaly. Reviewed, dictated and finalized at [facility]. ERCIAL ARTIST LETTERING Impression: Mild central congestive change. Stable cardiomegaly.
--- NOTE | ~2024-06-10 | CT_ITS ---
Noncontrast CT scan of the cervical spine Technique: Multiple contiguous axial [address] images of the cervical spine were obtained and rec onstructed in 2D sagittal and coronal planes on the acquisition scanner. Dose reduction technique was used on this scan by utilizing automated exposure control, adjustment of the mA and/or kV according to patient size. The dose-length product (DLP) was 360.38 mGy-cm. Clinical History: Pain Comparison 06/08/2024 Findings: No acute fracture. There is minimal grade 1 anterolisthesis of C4 over C5. There are stable mild degenerative changes in the cervical spine. No prevertebral soft tissue swelling. Impression: No acute fracture. Minimal grade 1 anterolisthesis of C4 over C5. Mild degenerative changes, stable from recent prior exam. Reviewed, dictated and finalized at [facility]. [place] SALES TEAMMATE Impression: No acute fracture. Minimal grade 1 anterolisthesis of C4 over C5. Mild degenerative changes, stable from recent prior exam.
--- NOTE | 2024-06-10 02:32 | ECG_ITS ---
Test Date: 2024-06-10 04:06:05 Measurements Intervals [place] Rate: 55 P: 9 [place]: 128 QRS: 38 QRSD: 98 T: 34 QT: 413 QTc: 398 Interpretive Statements SINUS BRADYCARDIA BASELINE ARTIFACT- I, II, AVR, AVL BORDERLINE ECG Compared to ECG 04/16/2024 20:46:16 HEART RATE HAS DECREASED Electronically Signed On 06-10-2024 05:27:33 MEDICAL INSTRUMENT TECHNICIAN by Rahat Guzmán D.O.
--- NOTE | 2024-06-10 03:21 | ED.GENADULT ---
HPI - General Adult General Chief complaint: Fall Stated complaint: I fell on my tailbone Time Seen by Provider: 06/10/24 02:22 History of Present Illness HPI narrative: Patient 79-year-old female who presents emergency department with chief complaint of ground level fall. Patient reports that she got tangled up with her feet and fell backwards the patient did states that she bumped her head and also hit her tailbone the patient reports pain in the tailbone area and also reports that she has pain in the left hip. Family reports that she has had several falls recently and has been weaker than normal Related Data Home Medications Medication Instructions Recorded Confirmed amlodipine 5 mg tablet 5 mg PO DAILY 08/18/21 03/20/24 mesalamine 0.375 gram 0.75 g PO BID 08/18/21 03/20/24 capsule,extended release 24 hr metoprolol tartrate 50 mg tablet 50 mg PO BID 08/18/21 03/20/24 multivitamin with minerals 1 tablet PO DAILY 08/18/21 03/20/24 pantoprazole 40 mg tablet,delayed 40 mg PO QPM 08/18/21 03/20/24 release ferrous sulfate 324 mg (65 mg 324 mg PO DAILY 06/03/23 03/20/24 iron) tablet,delayed release metformin 750 mg tablet,extended 750 mg PO DAILY 06/03/23 03/20/24 release 24 hr vedolizumab 300 mg DIRECTED 06/03/23 03/20/24 aspirin 81 mg capsule 81 mg PO HS 03/20/24 03/20/24 buspirone 5 mg tablet 5 mg PO BID 03/20/24 03/20/24 losartan 100 mg tablet 100 mg PO HS 03/20/24 03/20/24 pravastatin 40 mg tablet 40 mg PO DAILY 03/20/24 03/20/24 rivastigmine 4.6 mg/24 hour 4.6 mg topical HS 03/20/24 03/20/24 transdermal patch Allergies Allergy/AdvReac Type Severity Reaction Status Date / Time Penicillins Allergy Rash Verified 06/10/24 01:31 Review of Systems Review of Systems: A 10 system review of systems was completed on the patient and is negative except for what is stated in the HPI. Nursing and ancillary documentation was reviewed. 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 Family History Family History Mother Diabetes mellitus Hypertension Cancer Cerebrovascular accident Afib Father Cancer Social History Social History Social History: Lives in [place]. Nonsmoker. No alcohol or illicit substance use. 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 Surrogate decision maker: Aby Riley, daughter. Code status: Full code. Smoking status: Never smoker Alcohol intake: never Substance use: never Substance use type: does not use Do You Feel Safe in your Home?: Yes Lack of Transportation: No Lack of Food: Never True Current Housing: I Have Housing Concerned About Future Housing: No Difficulty Paying Gas/Electric Bills: No Difficulty Paying for Meds: No Currently Unemployed: No Education: High School Diploma/GED Difficulty w/ Childcare or Family Care: No Spiritual care concerns: No Exam Narrative: GENERAL: Well-appearing, well-nourished, and in no acute distress. HEAD: Normocephalic, atraumatic. EYES: PERRLA and EOMI. ENT: Nares clear, no rhinorrhea or epistaxis. Mucous membranes moist. NECK: Supple. CHEST: Clear to auscultation. No respiratory distress. HEART: Regular rate and rhythm. No murmur heard. Normal peripheral pulses. ABDOMEN: Soft, nontender, nondistended, normal active bowel sounds. EXTREMITIES: Normal range of motion there is tenderness palpation of the left hip area. No edema. back: Tenderness to palpation and the number spine and left hip SKIN: Warm, dry, no rash. NEURO: No focal deficits. Alert and oriented x3. PSYCH: Normal mood and affect. Course Vital Signs Vital signs: Vital Signs Pulse Rate 59 L 06/10/24 02:00 Respiratory Rate 21 H 06/10/24 02:00 Blood Pressure 165/72 H 06/10/24 02:00 Pulse Oximetry 93 06/10/24 02:00 Pulse Rate 57 L 06/10/24 04:31 Respiratory Rate 19 06/10/24 04:31 Blood Pressure 158/73 H 06/10/24 04:31 Pulse Oximetry 94 06/10/24 04:31 Medical Decision Making MDM Narrative Medical decision making narrative: differential diagnosis includes fracture, contusion, electrolyte abnormality, UTI, ACS laboratory studies were obtained on the patient showed a normal CBC with white count of 11.8 CMP showed no acute abnormalities troponin was negative urinalysis showed 2+ leukocyte esterase 6-[address] scan of the head lumbar spine pelvis showed no evidence of fracture the patient was started on Keflex and the patient will be instructed follow-up with primary care provider Vital Signs Vital Signs: Vital Signs Pulse Rate 59 L 06/10/24 02:00 Respiratory Rate 21 H 06/10/24 02:00 Blood Pressure 165/72 H 06/10/24 02:00 Pulse Oximetry 93 06/10/24 02:00 Pulse Rate 57 L 06/10/24 04:31 Respiratory Rate 19 06/10/24 04:31 Blood Pressure 158/73 H 06/10/24 04:31 Pulse Oximetry 94 06/10/24 04:31 Lab Data 06/10/24 03:36 06/10/24 03:36 Labs: Lab Results 06/10/24 06/10/24 Range/Units 03:36 03:37 WBC 11.8 H (4.5-10.0) K/mm3 RBC 4.75 (4.2-5.4) M/mm3 Hgb 14.1 (12.0-15.0) g/dL Hct 42.7 (37.0-47.0) % MCV 89.9 (80-100) fl MCH 29.7 (26-34) pg MCHC 33.0 (32-36) g/dl RDW 13.2 (11.5-14.5) % Plt Count 234 (150-375) k/mm3 MPV 9.2 (7.4-10.4) fl Immature Gran % (Auto) 0.9 H (0-0.5) % Neut % (Auto) 70.8 (45.5-73.1) % Lymph % (Auto) 16.7 L (18.3-44.2) % [place] % (Auto) 7.6 (2.6-8.5) % Eos % (Auto) 3.6 (0-4.4) % Baso % (Auto) 0.4 (0.2-1.2) % Lymph # (Auto) 1.97 (0.9-3.2) K/mm3 [place] # (Auto) 0.9 H (0.1-0.6) K/mm3 Eos # (Auto) 0.4 H (0-0.3) K/mm3 Baso # (Auto) 0.1 (0.0-0.1) K/mm3 Abs Immat Gran (auto) 0.11 H (0.00-0.031) K/mm3 Absolute Neuts (auto) 8.4 H (1.3-6.7) K/mm3 Absolute Nucleated RBC 0.000 (0.0-0.012) K/mm3 Nucleated RBC % 0.0 (0.0-0.2) % Sodium 138 (137-145) mmol/L Potassium 4.2 (3.4-5.0) mmol/L Chloride 104 (98-107) mmol/L Carbon Dioxide 29 (22-30) mmol/L Anion Gap 5 (4-12) mmol/L BUN 19 H (7-17) mg/dL Creatinine 0.80 (0.7-1.0) mg/dL Estim Creat Clear Calc 45 ml/min Estimated GFR > 60 (59 - ) Glucose 125 H (65-110) mg/dL Calcium 9.6 (8.4-10.2) mg/dL Magnesium 2.0 (1.6-2.3) mg/dL Total Bilirubin 0.7 (0.2-1.3) mg/dL AST 27 (14-36) U/L ALT 18 (6-35) U/L Alkaline Phosphatase 95 (38-126) U/L Troponin I < 0.012 (0.000-0.034) ng/mL Total Protein 8.0 (6.3-8.2) g/dL Albumin 4.3 (3.5-5.1) g/dL Urine Color Yellow (Yellow) Urine Appearance Clear (Clear) Urine pH 6.5 (5.0-9.0) Ur Specific [place] 1.005 (1.001-1.035) Urine Protein Negative (Negative) mg/dL Urine Glucose (UA) Negative (Negative) mg/dL Urine Ketones Negative (Negative) mg/dL Ur Blood (Man) Negative (Negative) Urine Nitrate Negative (Negative) Urine Bilirubin Negative (Negative) Urine Urobilinogen 0.2 (<2.0) mg/dL Leukocyte Esterase Rfl 2+ H (Negative) YAMILETH/UL Urine RBC 0-2 (0-2) /hpf Urine WBC 6-10 H (0-3) /hpf Ur Squamous Epith Cells None seen (Few) /hpf Urine Bacteria Trace /hpf Urine Casts 0-2 Discharge Plan Discharge Clinical Impression: Fall from ground level, Coccyx contusion, Back pain, Acute UTI, Head injury Patient Disposition: NH Skilled Nursing/Asst Living Condition: Stable Instructions: Antibiotic Form, Head Injury (ED), Contusion in Adults (ED), Urinary Tract Infection in Older Adults (ED) Prescriptions: New cephalexin 500 mg capsule 500 mg PO Q12H 7 Days Qty: 14 0RF No Action amlodipine 5 mg tablet 5 mg PO DAILY pantoprazole 40 mg tablet,delayed release (DR/EC) 40 mg PO QPM metoprolol tartrate 50 mg tablet 50 mg PO BID mesalamine 0.375 gram capsule,extended release 24hr 0.75 g PO BID multivitamin with minerals Tablet 1 tablet PO DAILY metformin 750 mg tablet extended release 24 hr 750 mg PO DAILY vedolizumab 300 mg 300 mg DIRECTED Rx Instructions: Every 8 weeks ferrous sulfate 324 mg (65 mg iron) tablet,delayed release (DR/EC) 324 mg PO DAILY buspirone 5 mg tablet 5 mg PO BID pravastatin 40 mg tablet 40 mg PO DAILY losartan 100 mg tablet 100 mg PO HS rivastigmine 4.6 mg/24 hour patch 24 hour 4.6 mg topical HS aspirin 81 mg Capsule 81 mg PO HS lamotrigine [Lamictal] 25 mg Tablet 25 mg PO Q12HR Qty: 60 0RF lamotrigine [Lamictal] 100 mg Tablet 100 mg PO Q12HR Qty: 60 0RF levofloxacin 750 mg tablet 750 mg PO DAILY Qty: 1 0RF Rx Instructions: Take your final tablet on 03/22/24. lacosamide [Vimpat] 100 mg tablet 100 mg PO Q12H Qty: 60 0RF lamotrigine 200 mg tablet 200 mg PO BID Qty: 60 1RF lamotrigine 25 mg tablet 25 mg PO BID 14 Days Qty: 28 0RF acetaminophen 650 mg tablet extended release 650 mg PO Q8H PRN (Reason: pain) Qty: 20 0RF Follow-up/Referrals: Yelitza,Servando Bernstein MD [Primary Care Provider] - Time of Disposition: 05:34
[2024-06-10 03:48] LABS: Basophils Absolute Auto 0.1 K/mm3 (0.0-0.1); Basophils Percent Auto 0.4 % (0.2-1.2); Eosinophils Absolute Auto 0.4 K/mm3 (0-0.3); Eosinophils Percent Auto 3.6 % (0-4.4); Hematocrit 42.7 % (37.0-47.0); Hemoglobin 14.1 g/dL (12.0-15.0); Immature Granulocyte Absolute 0.11 K/mm3 (0.00-0.031); Immature Granulocyte Percent A 0.9 % (0-0.5); Lymphocytes Absolute Auto 1.97 K/mm3 (0.9-3.2); Lymphocytes Percent Auto 16.7 % (18.3-44.2); Mean Corpuscular Hemoglobin 29.7 pg (26-34); Mean Corpuscular Volume 89.9 fl (80-100); Mean Platelet Volume 9.2 fl (7.4-10.4); Monocytes Absolute Auto 0.9 K/mm3 (0.1-0.6); Monocytes Percent Auto 7.6 % (2.6-8.5); Neutrophils Absolute Auto 8.4 K/mm3 (1.3-6.7); Neutrophils Percent Auto 70.8 % (45.5-73.1); Platelet Count Result 234 k/mm3 (150-375); Red Blood Count 4.75 M/mm3 (4.2-5.4); Red Cell Distribution Width 13.2 % (11.5-14.5); White Blood Count 11.8 K/mm3 (4.5-10.0)
[2024-06-10 03:55] LABS: Add Urine Microscopic? YES; Appearance Urine Clear (Clear); Bilirubin Urine Negative (Negative); Blood Urine Negative (Negative); Color Urine Yellow (Yellow); Glucose Urine UA Negative (Negative); Ketones Urine Negative (Negative); Leukocyte Esterase Ur 2+ LEU/UL (Negative); Nitrate Urine Negative (Negative); Non Pathogenic Casts 0-2; Protein Urine Negative (Negative); RBC Urine 0-2 /hpf (0-2); Specific Grav Ur 1.005 (1.001-1.035); Squamous Epithelial Cell Urine None Seen /hpf (Few); Urobilinogen Urine 0.2 mg/dL (<2.0); pH Urine 6.5 (5.0-9.0)
[2024-06-10 03:59] LABS: Alanine Aminotransferase 18 U/L (6-35); Albumin Level 4.3 g/dL (3.5-5.1); Alkaline Phosphatase 95 U/L (38-126); Anion Gap 5 mmol/L (4-12); Aspartate Amino Transferase 27 U/L (14-36); Bilirubin,Total 0.7 mg/dL (0.2-1.3); Blood Urea Nitrogen 19 mg/dL (7-17); Calcium 9.6 mg/dL (8.4-10.2); Carbon Dioxide 29 mmol/L (22-30); Chloride 104 mmol/L (98-107); Estimated CRCL calculation 45 ml/min; Estimated Glomerular Filt Rate > 60; Glucose 125 mg/dL (65-110); Potassium 4.2 mmol/L (3.4-5.0); Sodium 138 mmol/L (137-145)
[2024-06-10 04:02] LABS: Bacteria Urine Trace /hpf
[2024-06-10 04:10] LABS: Troponin I < 0.012 ng/mL (0.000-0.034)
== END 2024-06-10 06:06 ==
PROVIDERS: Emergency Provider Emergency Medicine; PCP Family Medicine
DX: S30.0XXA Contusion of lower back and pelvis, initial encounter (principal); W18.30XA Fall on same level, unspecified, initial encounter; N39.0 Urinary tract infection, site not specified; S09.90XA Unspecified injury of head, initial encounter; I10 Essential (primary) hypertension; E78.5 Hyperlipidemia, unspecified; K21.9 Gastro-esophageal reflux disease without esophagitis
CPT/HCPCS: 36415; 70450; 71045; 72125; 72131; 72192; 73502; 80053; 81001; 83735; 84484; 85025; 87086; 93005; 99284

== ENCOUNTER 2024-06-28 01:55 | Emergency (ER) | payer MEDICARE, SELFPAY ==
--- NOTE | ~2024-06-28 | CT_ITS ---
Non-contrast CT scan of the Abdomen and Pelvis Clinical indication: Trauma Technique: 2.5 mm axial scans were obtained through the abdomen and pelvis without intravenous or or al contrast. Dose reduction technique was used on this scan by utilizing automated exposure control a nd iterative reconstruction technique. The dose-length product (DLP) was 747.53 mGy-cm. COMPARISON: 06/10/2024 Findings: Images through the lung bases reveal no abnormalities. Bilateral nonobstructing renal calculi are present, largest in the right kidney measuring 7 mm. No hy dronephrosis on either side. 1.7 cm probable left hepatic lobe cyst present. The spleen, pancreas, gallbladder, and adrenals appea r normal. There are mild atherosclerotic calcifications of the aorta and iliac vessels. There is no evidence of bowel obstruction. Images through the pelvis are mildly degraded by streak artifact from left hip arthroplasty. There is no evidence of ascites or lymphadenopathy. Urinary bladder unremarkable. No pelvic mass seen. There is mild compression fracture deformity at the supraclavicular region of T11, probably acute. Impression: Probable acute, mild T11 compression fracture, as above. No other acute abnormalities seen. Bilateral nonobstructing nephrolithiasis, as above. Reviewed, dictated and finalized at location . RECOVERY SPECIALIST Impression: Probable acute, mild T11 compression fracture, as above. No other acute abnormalities seen. Bilateral nonobstructing nephrolithiasis, as above.
--- NOTE | ~2024-06-28 | XR_ITS ---
Right elbow Technique: AP, oblique, and lateral views were obtained. Clinical History: Pain Findings: No acute fracture or dislocation is seen. Osseous alignment is anatomic. Joint spaces are p reserved. There is no displacement of the fat pads, and soft tissues are unremarkable. Impression: Unremarkable radiographs. Reviewed, dictated and finalized at location . BUILDING DRAFTSPERSON Impression: Unremarkable radiographs.
--- NOTE | ~2024-06-28 | CT_ITS ---
CT head without contrast Indication: Head injury COMPARISON: 06/10/2024 Technique: Serial scans were obtained through the brain without the administration of contrast. Dose reduction technique was used on this scan by utilizing automated exposure control and iterative recon struction technique. The dose-length product (DLP) was 605.33 mGy-cm. Findings: There is no evidence of intracranial hemorrhage, mass lesion, or acute infarct. The ventri cles and subarachnoid spaces are dilated, consistent with mild to moderate atrophy. Low attenuation regions are seen within the periventricular white matter bilaterally, likely representing changes fro m chronic microvascular ischemic disease. There is no evidence of edema, mass effect or midline shif t. The visualized paranasal sinuses and mastoid air cells are clear. Impression: No intracranial hemorrhage, mass, or acute infarct. Atrophy and chronic white matter changes, as above. Reviewed, dictated and finalized at location . IRATORY CARE PROGRAM DIRECTOR Impression: No intracranial hemorrhage, mass, or acute infarct. Atrophy and chronic white matter changes, as above.
--- NOTE | ~2024-06-28 | XR_ITS ---
Right Shoulder Technique: AP and scapular Y views were obtained. Clinical History: Pain Findings: No fracture or dislocation is seen. Osseous alignment is anatomic. The glenohumeral and acr omioclavicular joint spaces are preserved. Soft tissues are unremarkable. Impression: Unremarkable right shoulder radiographs. Reviewed, dictated and finalized at [facility]. ENERGY SYSTEMS INSTALLER Impression: Unremarkable right shoulder radiographs.
--- NOTE | ~2024-06-28 | CT_ITS ---
Noncontrast CT scan of the cervical spine Technique: Multiple contiguous axial [address] images of the cervical spine were obtained and rec onstructed in 2D sagittal and coronal planes on the acquisition scanner. Dose reduction technique was used on this scan by utilizing automated exposure control, adjustment of the mA and/or kV according to patient size. The dose-length product (DLP) was 147.31 mGy-cm. Clinical History: Pain Findings: No acute fracture. There is 2 mm anterolisthesis of C4 over C5. There are minimal degenerat ander changes in the cervical spine. There is mild uncovertebral degenerative change, worst at C5-C6. T here are mild scattered facet joint degenerative changes. No prevertebral soft tissue swelling. Impression: No acute fracture. 2 mm anterolisthesis of C4 over C5. Mild degenerative spondylosis, as above. Reviewed, dictated and finalized at [facility]. ER EXAMINER Impression: No acute fracture. 2 mm anterolisthesis of C4 over C5. Mild degenerative spondylosis, as above.
[2024-06-28 02:08] VITALS: BP 159/82; PULSE 65; RESP 18; TEMP 37.1; O2SAT 99
--- NOTE | 2024-06-28 02:19 | ECG_ITS ---
Test Date: 2024-06-28 03:21:01 Measurements Intervals [place] Rate: 65 P: 109 [place]: 160 QRS: -10 QRSD: 98 T: -29 QT: 390 QTc: 407 Interpretive Statements SINUS RHYTHM INFERIOR MYOCARDIAL INFARCTION , OF INDETERMINATE AGE [40+ ms Q WAVE AND/OR ST/T ABNORMALITY IN II/aVF] MODERATE T-WAVE ABNORMALITY, CONSIDER ANTERIOR ISCHEMIA [-0.1+ mV T-WAVE IN V3/V4] BASELINE ARTIFACT LIMITS INTERPRETATION ABNORMAL ECG Electronically Signed On 06-28-2024 09:01:36 MASTER BLACK BELT by Tino Aleman M.D.
--- NOTE | 2024-06-28 03:10 | ED.GENADULT ---
HPI - General Adult General Chief complaint: Fall Stated complaint: fall Time Seen by Provider: 06/28/24 02:15 History of Present Illness HPI narrative: Patient 79-year-old female who presents emergency department with chief complaint of fall. Patient is resident of the [place] and had a ground level fall after she tripped while using her walker the patient reports that she has a skin tear to her right arm reports that she has pain in her tailbone area and also reports she has pain in her head. The family reports that she generally sleeps well yesterday and then has been a little off today patient was recently treated for urinary tract infection after she had a another fall Related Data Home Medications Medication Instructions Recorded Confirmed amlodipine 5 mg tablet 5 mg PO DAILY 08/18/21 03/20/24 mesalamine 0.375 gram 0.75 g PO BID 08/18/21 03/20/24 capsule,extended release 24 hr metoprolol tartrate 50 mg tablet 50 mg PO BID 08/18/21 03/20/24 multivitamin with minerals 1 tablet PO DAILY 08/18/21 03/20/24 pantoprazole 40 mg tablet,delayed 40 mg PO QPM 08/18/21 03/20/24 release ferrous sulfate 324 mg (65 mg 324 mg PO DAILY 06/03/23 03/20/24 iron) tablet,delayed release metformin 750 mg tablet,extended 750 mg PO DAILY 06/03/23 03/20/24 release 24 hr vedolizumab 300 mg DIRECTED 06/03/23 03/20/24 aspirin 81 mg capsule 81 mg PO HS 03/20/24 03/20/24 buspirone 5 mg tablet 5 mg PO BID 03/20/24 03/20/24 losartan 100 mg tablet 100 mg PO HS 03/20/24 03/20/24 pravastatin 40 mg tablet 40 mg PO DAILY 03/20/24 03/20/24 rivastigmine 4.6 mg/24 hour 4.6 mg topical HS 03/20/24 03/20/24 transdermal patch Allergies Allergy/AdvReac Type Severity Reaction Status Date / Time Penicillins Allergy Rash Verified 06/10/24 01:31 Review of Systems Review of Systems: A 10 system review of systems was completed on the patient and is negative except for what is stated in the HPI. Nursing and ancillary documentation was reviewed. 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 Family History Family History Mother Diabetes mellitus Hypertension Cancer Cerebrovascular accident Afib Father Cancer Social History Social History Social History: Lives in [place]. Nonsmoker. No alcohol or illicit substance use. 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 Surrogate decision maker: Aby Riley, daughter. Code status: Full code. Smoking status: Never smoker Alcohol intake: never Substance use: never Substance use type: does not use Do You Feel Safe in your Home?: Yes Lack of Transportation: No Lack of Food: Never True Current Housing: I Have Housing Concerned About Future Housing: No Difficulty Paying Gas/Electric Bills: No Difficulty Paying for Meds: No Currently Unemployed: No Education: High School Diploma/GED Difficulty w/ Childcare or Family Care: No Spiritual care concerns: No Exam Narrative: GENERAL: Well-appearing, well-nourished, and in no acute distress. HEAD: Normocephalic, atraumatic. EYES: PERRLA and EOMI. ENT: Nares clear, no rhinorrhea or epistaxis. Mucous membranes moist. NECK: Supple. CHEST: Clear to auscultation. No respiratory distress. HEART: Regular rate and rhythm. No murmur heard. Normal peripheral pulses. ABDOMEN: Soft, nontender, nondistended, normal active bowel sounds. EXTREMITIES: Normal range of motion. No edema. SKIN: Warm, dry, no rash. There is a skin tear to the right forearm NEURO: No focal deficits. Alert and oriented x3. PSYCH: Normal mood and affect. Course Vital Signs Vital signs: Vital Signs Temperature 37.1 C 06/28/24 02:08 Pulse Rate 65 06/28/24 02:08 Respiratory Rate 18 06/28/24 02:08 Blood Pressure 159/82 H 06/28/24 02:08 Pulse Oximetry 99 06/28/24 02:08 Oxygen Delivery Room Air 06/28/24 02:08 Temperature 37.1 C 06/28/24 02:08 Pulse Rate 65 06/28/24 02:08 Respiratory Rate 18 06/28/24 02:08 Blood Pressure 159/82 H 06/28/24 02:08 Pulse Oximetry 99 06/28/24 02:08 Oxygen Delivery Room Air 06/28/24 02:08 Medical Decision Making MDM Narrative Medical decision making narrative: Differential diagnosis includes fracture, contusion, electrolyte abnormality, dehydration, UTI CT head showed no acute abnormality CT C-spine showed no acute abnormality CT of the abdomen pelvis showed a T11 compression fracture. The patient is only complaining of minimal back pain has no focal neurological deficits no bowel or bladder incontinence. The patient will be discharged to follow-up with neurosurgery and also to follow-up with primary care. Vital Signs Vital Signs: Vital Signs Temperature 37.1 C 06/28/24 02:08 Pulse Rate 65 06/28/24 02:08 Respiratory Rate 18 06/28/24 02:08 Blood Pressure 159/82 H 06/28/24 02:08 Pulse Oximetry 99 06/28/24 02:08 Oxygen Delivery Room Air 06/28/24 02:08 Temperature 37.1 C 06/28/24 02:08 Pulse Rate 65 06/28/24 02:08 Respiratory Rate 18 06/28/24 02:08 Blood Pressure 159/82 H 06/28/24 02:08 Pulse Oximetry 99 06/28/24 02:08 Oxygen Delivery Room Air 06/28/24 02:08 Lab Data 06/28/24 03:30 06/28/24 03:30 Labs: Lab Results 06/28/24 Range/Units 03:30 WBC 8.1 (4.5-10.0) K/mm3 RBC 4.80 (4.2-5.4) M/mm3 Hgb 14.1 (12.0-15.0) g/dL Hct 43.3 (37.0-47.0) % MCV 90.2 (80-100) fl MCH 29.4 (26-34) pg MCHC 32.6 (32-36) g/dl RDW 13.1 (11.5-14.5) % Plt Count 283 (150-375) k/mm3 MPV 9.2 (7.4-10.4) fl Immature Gran % (Auto) 0.6 H (0-0.5) % Neut % (Auto) 57.0 (45.5-73.1) % Lymph % (Auto) 25.0 (18.3-44.2) % [place] % (Auto) 12.3 H (2.6-8.5) % Eos % (Auto) 4.6 H (0-4.4) % Baso % (Auto) 0.5 (0.2-1.2) % Lymph # (Auto) 2.03 (0.9-3.2) K/mm3 [place] # (Auto) 1.0 H (0.1-0.6) K/mm3 Eos # (Auto) 0.4 H (0-0.3) K/mm3 Baso # (Auto) 0.0 (0.0-0.1) K/mm3 Abs Immat Gran (auto) 0.05 H (0.00-0.031) K/mm3 Absolute Neuts (auto) 4.6 (1.3-6.7) K/mm3 Absolute Nucleated RBC 0.000 (0.0-0.012) K/mm3 Nucleated RBC % 0.0 (0.0-0.2) % Sodium 139 (137-145) mmol/L Potassium 4.1 (3.4-5.0) mmol/L Chloride 102 (98-107) mmol/L Carbon Dioxide 32 H (22-30) mmol/L Anion Gap 5 (4-12) mmol/L BUN 20 H (7-17) mg/dL Creatinine 0.90 (0.7-1.0) mg/dL Estim Creat Clear Calc 34 ml/min Estimated GFR 60 (59 - ) Glucose 126 H (65-110) mg/dL Lactic Acid 1.0 (0.7-2.0) mmol/L Calcium 9.6 (8.4-10.2) mg/dL Magnesium 2.1 (1.6-2.3) mg/dL Total Bilirubin 0.6 (0.2-1.3) mg/dL AST 24 (14-36) U/L ALT 18 (6-35) U/L Alkaline Phosphatase 177 H (38-126) U/L Troponin I < 0.012 (0.000-0.034) ng/mL Total Protein 7.0 (6.3-8.2) g/dL Albumin 4.3 (3.5-5.1) g/dL Urine Color Pending Urine Appearance Pending Urine pH Pending Ur Specific [place] Pending Urine Protein Pending Urine Glucose (UA) Pending Urine Ketones Pending Ur Blood (Man) Pending Urine Nitrate Pending Urine Bilirubin Pending Urine Urobilinogen Pending Leukocyte Esterase Rfl Pending Discharge Plan Discharge Clinical Impression: Compression fracture of T11 vertebra Patient Disposition: [place] Half-Way/Asst Living Condition: Stable Instructions: Antibiotic Form, Vertebral Compression Fracture (ED), Fall Prevention (ED) Prescriptions: No Action amlodipine 5 mg tablet 5 mg PO DAILY pantoprazole 40 mg tablet,delayed release (DR/EC) 40 mg PO QPM metoprolol tartrate 50 mg tablet 50 mg PO BID mesalamine 0.375 gram capsule,extended release 24hr 0.75 g PO BID multivitamin with minerals Tablet 1 tablet PO DAILY metformin 750 mg tablet extended release 24 hr 750 mg PO DAILY vedolizumab 300 mg 300 mg DIRECTED Rx Instructions: Every 8 weeks ferrous sulfate 324 mg (65 mg iron) tablet,delayed release (DR/EC) 324 mg PO DAILY buspirone 5 mg tablet 5 mg PO BID pravastatin 40 mg tablet 40 mg PO DAILY losartan 100 mg tablet 100 mg PO HS rivastigmine 4.6 mg/24 hour patch 24 hour 4.6 mg topical HS aspirin 81 mg Capsule 81 mg PO HS lamotrigine [Lamictal] 25 mg Tablet 25 mg PO Q12HR Qty: 60 0RF lamotrigine [Lamictal] 100 mg Tablet 100 mg PO Q12HR Qty: 60 0RF levofloxacin 750 mg tablet 750 mg PO DAILY Qty: 1 0RF Rx Instructions: Take your final tablet on 03/22/24. lacosamide [Vimpat] 100 mg tablet 100 mg PO Q12H Qty: 60 0RF lamotrigine 200 mg tablet 200 mg PO BID Qty: 60 1RF lamotrigine 25 mg tablet 25 mg PO BID 14 Days Qty: 28 0RF cephalexin 500 mg capsule 500 mg PO Q12H 7 Days Qty: 14 0RF acetaminophen 650 mg tablet extended release 650 mg PO Q8H PRN (Reason: pain) Qty: 20 0RF Follow-up/Referrals: Yelitza,Servando Bernstein MD [Primary Care Provider] - Marisol Vanessa MD [Physician] - Time of Disposition: 05:01
[2024-06-28 03:43] LABS: Basophils Percent Auto 0.5 % (0.2-1.2); Eosinophils Absolute Auto 0.4 K/mm3 (0-0.3); Eosinophils Percent Auto 4.6 % (0-4.4); Hematocrit 43.3 % (37.0-47.0); Hemoglobin 14.1 g/dL (12.0-15.0); Immature Granulocyte Absolute 0.05 K/mm3 (0.00-0.031); Immature Granulocyte Percent A 0.6 % (0-0.5); Lymphocytes Absolute Auto 2.03 K/mm3 (0.9-3.2); Mean Corpuscular HGB Conc 32.6 g/dl (32-36); Mean Corpuscular Hemoglobin 29.4 pg (26-34); Mean Corpuscular Volume 90.2 fl (80-100); Mean Platelet Volume 9.2 fl (7.4-10.4); Monocytes Percent Auto 12.3 % (2.6-8.5); Neutrophils Absolute Auto 4.6 K/mm3 (1.3-6.7); Platelet Count Result 283 k/mm3 (150-375); Red Cell Distribution Width 13.1 % (11.5-14.5); White Blood Count 8.1 K/mm3 (4.5-10.0)
[2024-06-28 04:45] LABS: Alanine Aminotransferase 18 U/L (6-35); Albumin Level 4.3 g/dL (3.5-5.1); Alkaline Phosphatase 177 U/L (38-126); Anion Gap 5 mmol/L (4-12); Aspartate Amino Transferase 24 U/L (14-36); Bilirubin,Total 0.6 mg/dL (0.2-1.3); Blood Urea Nitrogen 20 mg/dL (7-17); Calcium 9.6 mg/dL (8.4-10.2); Carbon Dioxide 32 mmol/L (22-30); Chloride 102 mmol/L (98-107); Estimated CRCL calculation 34 ml/min; Estimated Glomerular Filt Rate 60; Glucose 126 mg/dL (65-110); Magnesium 2.1 mg/dL (1.6-2.3); Potassium 4.1 mmol/L (3.4-5.0); Sodium 139 mmol/L (137-145); Troponin I < 0.012 ng/mL (0.000-0.034)
[2024-06-28 05:11] LABS: Add Urine Microscopic? YES; Appearance Urine Clear (Clear); Bacteria Urine None Seen /hpf; Bilirubin Urine Negative (Negative); Blood Urine Negative (Negative); Color Urine Yellow (Yellow); Glucose Urine UA Negative (Negative); Ketones Urine Negative (Negative); Leukocyte Esterase Ur Trace LEU/UL (Negative); Nitrate Urine Negative (Negative); Non Pathogenic Casts 0-2; Protein Urine Negative (Negative); RBC Urine 0-2 /hpf (0-2); Specific Grav Ur 1.007 (1.001-1.035); Squamous Epithelial Cell Urine None Seen /hpf (Few); Urobilinogen Urine 0.2 mg/dL (<2.0); WBC Urine 0-5 /hpf (0-3)
== END 2024-06-28 05:40 ==
PROVIDERS: Emergency Provider Emergency Medicine; PCP Family Medicine
DX: S22.080A Wedge compression fracture of T11-T12 vertebra, initial encounter for closed fracture (principal); S51.811A Laceration without foreign body of right forearm, initial encounter; I10 Essential (primary) hypertension; E78.5 Hyperlipidemia, unspecified; G31.84 Mild cognitive impairment of uncertain or unknown etiology; K21.9 Gastro-esophageal reflux disease without esophagitis; R73.03 Prediabetes; K51.90 Ulcerative colitis, unspecified, without complications; M47.812 Spondylosis without myelopathy or radiculopathy, cervical region; N20.0 Calculus of kidney; R94.31 Abnormal electrocardiogram [ECG] [EKG]; W01.0XXA Fall on same level from slipping, tripping and stumbling without subsequent striking against object, initial encounter
CPT/HCPCS: 36415; 70450; 72125; 73030; 73080; 74176; 80053; 81001; 83605; 83735; 84484; 85025; 93005; 99284

== ENCOUNTER 2024-07-09 12:38 | Emergency (ER) | payer MEDICARE, SELFPAY ==
--- NOTE | ~2024-07-09 | CT_ITS ---
CT head without contrast Indication: Status post fall COMPARISON: 07-20 Technique: Serial scans were obtained through the brain without the administration of contrast. Dose reduction technique was used on this scan by utilizing automated exposure control and iterative recon struction technique. The dose-length product (DLP) was 605.33 mGy-cm. Findings: There is no evidence of intracranial hemorrhage, mass lesion, or acute infarct. The ventri cles and subarachnoid spaces are dilated, consistent with mild atrophy. Low attenuation regions are seen within the periventricular white matter bilaterally, likely representing changes from chronic mi crovascular ischemic disease. There is no evidence of edema, mass effect or midline shift. The visu alized paranasal sinuses and mastoid air cells are clear. Impression: No intracranial hemorrhage, mass, or acute infarct. Atrophy and chronic white matter changes, as above. Reviewed, dictated and finalized at location . 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 Atrophy and chronic white matter changes, as above.
--- NOTE | ~2024-07-09 | CT_ITS ---
Noncontrast CT scan of the cervical spine Technique: Multiple contiguous axial [address] images of the cervical spine were obtained and rec onstructed in 2D sagittal and coronal planes on the acquisition scanner. Dose reduction technique was used on this scan by utilizing automated exposure control, adjustment of the mA and/or kV according to patient size. The dose-length product (DLP) was 292.00 mGy-cm. Clinical History: Status post fall COMPARISON: 06/28/2024 Findings: No acute fracture or subluxation. Stable grade 1 anterolisthesis of C4 over C5. Stable mild degenerative spondylitic changes in the cervical spine. No prevertebral soft tissue swelling. Impression: No acute fracture or subluxation of the cervical spine. Stable grade 1 anterolisthesis of C4 over C5. Reviewed, dictated and finalized at [facility]. TY ADVISOR Impression: No acute fracture or subluxation of the cervical spine. Stable grade 1 anterolisthesis of C4 over C5.
--- OUTSIDE RECORDS SUMMARY | 2024-07-09 13:08 | XMS_ITS | Continuity of Care Document ---
Author Organization [facility] [place] Address [address] [facility] [address] [place] [address] Phone Care Team Providers Care Bowling Ball Marker Name Role Phone Saul Ribera PT Unavailable Unavailable Procedures Procedure Date Therapeutic Activities Neuromuscular Re-Ed Therapeutic Activities Neuromuscular Re-Ed Hot or Cold Pack Doc neg elder mal no plan PRES/ABSN URINE INCON ASSESS PT Re-evaluation Therapeutic Activities Neuromuscular Re-Ed Therapeutic Exercise Therapeutic Activities Neuromuscular Re-Ed Therapeutic Exercise Hot or Cold Pack Therapeutic Activities Hot or Cold Pack Therapeutic Activities Neuromuscular Re-Ed Therapeutic Activities Neuromuscular Re-Ed Hot or Cold Pack Therapeutic Activities Neuromuscular Re-Ed Therapeutic Activities Neuromuscular Re-Ed Therapeutic Exercise Hot or Cold Pack Therapeutic Activities Neuromuscular Re-Ed Therapeutic Exercise Hot or Cold Pack Therapeutic Activities Neuromuscular Re-Ed Therapeutic Exercise Hot or Cold Pack Progress Note Therapeutic Activities Neuromuscular Re-Ed Therapeutic Exercise Hot or Cold Pack Therapeutic Activities Neuromuscular Re-Ed Hot or Cold Pack Therapeutic Activities Neuromuscular Re-Ed Therapeutic Activities Neuromuscular Re-Ed Hot or Cold Pack Therapeutic Activities Neuromuscular Re-Ed Hot or Cold Pack Therapeutic Activities Neuromuscular Re-Ed Hot or Cold Pack Therapeutic Activities Therapeutic Exercise Neuromuscular Re-Ed Hot or Cold Pack Doc neg elder mal no plan PRES/ABSN URINE INCON ASSESS PT Re-evaluation Therapeutic Activities Neuromuscular Re-Ed Therapeutic Activities Neuromuscular Re-Ed Therapeutic Activities Neuromuscular Re-Ed Progress Note Therapeutic Activities Neuromuscular Re-Ed Therapeutic Activities Neuromuscular Re-Ed Therapeutic Activities Neuromuscular Re-Ed Hot or Cold Pack Therapeutic Activities Neuromuscular Re-Ed Hot or Cold Pack Therapeutic Activities Neuromuscular Re-Ed Therapeutic Activities Neuromuscular Re-Ed Therapeutic Activities Neuromuscular Re-Ed Hot or Cold Pack Therapeutic Activities Neuromuscular Re-Ed Therapeutic Activities Neuromuscular Re-Ed Doc neg elder mal no plan PRES/ABSN URINE INCON ASSESS PT Re-evaluation Therapeutic Activities Neuromuscular Re-Ed Therapeutic Exercise Therapeutic Activities Neuromuscular Re-Ed Hot or Cold Pack Therapeutic Activities Neuromuscular Re-Ed Manual Therapy Hot or Cold Pack Therapeutic Activities Neuromuscular Re-Ed Manual Therapy Hot or Cold Pack Progress Note Therapeutic Activities Neuromuscular Re-Ed Hot or Cold Pack Therapeutic Activities Neuromuscular Re-Ed Therapeutic Exercise Therapeutic Activities Neuromuscular Re-Ed Therapeutic Exercise Therapeutic Activities Neuromuscular Re-Ed Therapeutic Exercise Hot or Cold Pack Therapeutic Activities Neuromuscular Re-Ed Progress Note Therapeutic Activities Neuromuscular Re-Ed Therapeutic Exercise Hot or Cold Pack Therapeutic Activities Neuromuscular Re-Ed Therapeutic Exercise Hot or Cold Pack Therapeutic Activities Neuromuscular Re-Ed Therapeutic Exercise Hot or Cold Pack Therapeutic Activities Hot or Cold Pack Therapeutic Activities Neuromuscular Re-Ed Therapeutic Exercise Hot or Cold Pack Therapeutic Activities Neuromuscular Re-Ed Therapeutic Exercise Therapeutic Activities Neuromuscular Re-Ed Therapeutic Exercise Therapeutic Activities Neuromuscular Re-Ed Therapeutic Activities Neuromuscular Re-Ed Therapeutic Exercise Doc neg elder mal no plan PT Evaluation Moderate Complexity Neuromuscular Re-Ed Therapeutic Exercise Manual Therapy Advance Directives Directive Yes / No Effective Date File Name No Information Encounters Encounter Description Practice Location Reason(s) For Visit Diagnoses Date Provider Providers Copied on Encounter [facility], [id number], tel:[phone] [place] No Information 3 Bacilio Saul. . [facility], [id number], tel:[phone] [facility] No Information 3 Bacilio Saul. . Referring Provider: Servando Bernstein, [facility] [place], [address]. tel:[phone] [facility] [address], [id number], tel:[phone] [facility] No Information 3 Bacilio Saul. . Referring Provider: Servando Bernstein, [facility] [place], [address]. tel:[phone] [facility] [address], [id number], tel:[phone] [facility] Urge incontinence 3 Bacilio Saul. . Referring Provider: Servando Bernstein, [facility] [place], [address]. tel:[phone] [facility], [address], [place], [place], [id number], [place] tel:[phone] [facility] No Information [place]-1 3 Bacilio Saul. . Referring Provider: Servando Bernstein, [address] [place], [address]. tel:[phone] [facility] [address], [place], [place], [id number], [place] tel:[phone] [facility] No Information [place]-1 - 3 Bacilio Saul. . Referring Provider: Servando Bernstein, [address] [place], [address]. tel:[phone] [facility] [address] [address], [place], [place], [id number], tel:[phone] [facility] No Information [place]-0 6 3 Bacilio Saul. . Referring Provider: Servando Bernstein, [address] [place], [address]. tel:[phone] [facility] [address] [address], [place], [place], [id number], tel:[phone] [facility] No Information Franklin-0 3 Bacilio Saul. . Referring Provider: Servando Bernstein, [address] [place], [address]. tel:[phone] [facility] [address] [facility] [facility] [address], [place], [place], [id number], [place] tel:[phone] [facility] No Information Franklin-0 - 3 Bacilio Saul. . Referring Provider: Servando Bernstein, [address] [place], [address]. tel:[phone] [facility], [address], [place], [place], [id number], [place] tel:[phone] [facility] No Information November- 3 Bacilio Saul. . Referring Provider: Servando Bernstein, [address] [facility], [place], [address]. tel:[phone] [facility], [address] [address], [place], [place], [id number], tel:[phone] [facility] No Information November- 3 Bacilio Saul. . Referring Provider: Servando Bernstein, [address] [facility], [place], [address]. tel:[phone] [facility], [address] [address], [place], [place], [address], tel:[phone] [facility] No Information November- 3 Bacilio Saul. . Referring Provider: Servando Bernstein, [address] [place], [address]. tel:[phone] [facility], [address] [address], [place], [place], [id number], tel:[phone] [facility] No Information 3 Bacilio Saul. . Referring Provider: Servando Bernstein, [address] [place], [address]. tel:[phone], [id number], tel:[phone] [facility] No Information November- 3 Bacilio Saul. . Referring Provider: Servando Bernstein, [address] [place], [address]. tel:[phone] [facility], [address] [address], [place], [place], [address], tel:[phone] [facility] No Information 3 Bacilio Saul. . Referring Provider: Servando Bernstein, [address] [place], [address]. tel:[phone] [facility] [address], [place], [place], [id number], [place] tel:[phone] [facility] No Information May-0 9-202 3 Bacilio Saul. . Referring Provider: Servando Bernstein, [address] [place], [address]. tel:[phone] [facility] [address] [address], [place], [id number], [place] tel:[phone] [facility] No Information May-0 3-202 3 Bacilio Saul. . Referring Provider: Servando Bernstein, [address] [place], [address]. tel:[phone] [facility], [address] [address], [place], [place], [address], tel:[phone] [facility] No Information May-0 2-202 3 Bacilio Saul. . Referring Provider: Servando Bernstein, [address] [place], [address]. tel:[phone] [facility], [id number], tel:[phone] [facility] No Information Apr-2 7-202 3 Bacilio Saul. . Referring Provider: Servando Bernstein, [address] [place], [address]. tel:[phone] [facility], [id number], [place] tel:[phone] [facility] Unspecified urinary incontinenceUrge incontinence Apr-2 5-202 3 Bacilio Saul. . Referring Provider: Servando Bernstein, [address] [place], [address]. tel:[phone] [facility], [address] [address], [place], [place], [address], [place] tel:[phone] [facility] No Information Apr-2 0-202 3 Bacilio Saul. . Referring Provider: Servando Bernstein, [address] [facility], [place], [address]. tel:[phone] [facility], [address] [address], [place], [place], [address], tel:[phone] [facility] No Information Apr-1 8-202 3 Bacilio Saul. . Referring Provider: Servando Bernstein, [address] [facility], [place], [address]. tel:[phone] [facility], [address] [address], [place], [place], [address], [place] tel:[phone] [facility] No Information Apr-1 4-202 3 Bacilio Saul. . Referring Provider: Servando Bernstein, [address] [place], [address]. tel:[phone] [facility], [address] [address], [place], [place], [address], [place] tel:[phone] [facility] No Information Apr-1 3-202 3 Bacilio Saul. . Referring Provider: Servando Bernstein, [address] [place], [address]. tel:[phone] [facility], [address], [id number], [place] tel:[phone] [facility] No Information Apr-0 6-202 3 Bacilio Saul. . Referring Provider: Servando Bernstein, [address] [place], [address]. tel:[phone] [facility] [address], [place], [place], [address], [place] tel:[phone] [facility] No Information Apr-0 4-202 3 Bacilio Saul. . Referring Provider: Servando Bernstein, [address] [place], [address]. tel:[phone] [place] [address], [address] [address], [place], [address], [place] tel:[phone] [facility] No Information Mar-3 1-202 3 Bacilio Saul. . Referring Provider: Servando Bernstein, [address] [place], [address]. tel:[phone] [facility] [address], [place], [address], [place] tel:[phone] [facility] No Information Mar-3 0-202 3 Bacilio Saul. . Referring Provider: Servando Bernstein, [address] [place], [address]. tel:[phone] [facility] [address], [place], [place], [address], tel:[phone] [facility] No Information Mar-2 3-202 3 Bacilio Saul. . Referring Provider: Servando Bernstein, [address] [place], [address]. tel:[phone] [facility], [id number], [place] tel:[phone] [facility] No Information Mar-2 1-202 3 Bacilio Saul. . Referring Provider: Servando Bernstein, [address] [place], [address]. tel:[phone] [facility] [address], [place], [address], [place] tel:[phone] [facility] No Information Mar-1 5- 3 Bacilio Saul. . Referring Provider: Servando Bernstein, [address] [place], [address]. tel:[phone] [facility] [address], [place], [address], [place] tel:[phone] [facility] Unspecified urinary incontinenceUnsp ecified urinary incontinence Mar-1 3-202 3 Bacilio Saul. . Referring Provider: Servando Bernstein, [address] [facility], [place], [address]. tel:[phone] [facility], [address] [address], [place], [place], [address], tel:[phone] [place] No Information Sep- 3 Bacilio Saul. . Referring Provider: Servando Bernstein, [address] [facility], [place], [address]. tel:[phone] [facility], [address] [address], [place], [address], [place] tel:[phone] [place] No Information 3 Bacilio Saul. . Referring Provider: Servando Bernstein, [address] [facility], [place], [address]. tel:[phone] [facility], [address] [address], [place], [place], [address], [place] tel:[phone] [place] No Information 3 Bacilio Saul. . Referring Provider: Servando Bernstein, [address] [place], [address]. tel:[phone] [address], [place], [address], [place] tel:[phone] [place] No Information 3 Bacilio Saul. . Referring Provider: Servando Bernstein, [address] [facility], [place], [address]. tel:[phone] [facility], [address] [address], [place], [place], [address], [place] tel:[phone] [place] No Information 3 Fatimah Jimenez. . Referring Provider: Servando Bernstein, [address] [place], [address]. tel:[phone] [facility], [address] [address], [place], [address], [place] tel:[phone] [place] No Information 3 Bacilio Saul. . Referring Provider: Servando Bernstein, [facility] [place], [address]. tel:[phone] [facility], [address] [address], [place], [address], [place] tel:[phone] [place] No Information 3 Bacilio Saul. . Referring Provider: Servando Bernstein, [address] [place], [address]. tel:[phone] [facility] [address], [place], [place], [address], tel:[phone] [place] No Information 3 Bacilio Saul. . Referring Provider: Servando Bernstein, [address] [place], [address]. tel:[phone] [facility], [id number], [place] tel:[phone] [place] No Information 3 Bacilio Saul. . Referring Provider: Servando Bernstein, [facility] [place], [address]. tel:[phone] [facility], [id number], [place] tel:[phone] [place] No Information 3 Bacilio Saul. . Referring Provider: Servando Bernstein, [facility] [place], [address]. tel:[phone] [facility] [address], [place], [place], [address], tel:[phone] [place] No Information 3 Bacilio Saul. . Referring Provider: Servando Bernstein, [address] [facility], [place], [address]. tel:[phone] [facility] [address] [address], [place], [place], [address], tel:[phone] [place] No Information 3 Bacilio Saul. . Referring Provider: Servando Bernstein, [address] [facility], [place], [address]. tel:[phone] [facility], [address], [place], [place], [address], [place] tel:[phone] [place] No Information 3 Bacilio Saul. . Referring Provider: Servando Bernstein, [address] [facility], [place], [address]. tel:[phone] [facility], [address] [address], [place], [place], [address], tel:[phone] [place] No Information 3 Bacilio Saul. . Referring Provider: Servando Bernstein, [address] [facility], [place], [address]. tel:[phone] [facility], [address] [place] [address], [place], [address], tel:[phone] [place] No Information 3 [place], [place]. Referring Provider: Servando Bernstein, [address] [facility], [place], [address]. tel:[phone] [facility], [address], [place], [place], [address], [place] tel:[phone] [place] No Information 2 Bacilio Saul. . Referring Provider: Servando Bernstein, [address] [facility], [place], [address]. tel:[phone] [facility] [facility] [address] [facility] [facility] [address], [place], [place], [address], tel:[phone] [place] No Information 2 Bacilio Mcdonald . Referring Provider: Servando Bernstein, [facility], [place], [address]. tel:[phone] [facility], [address], [place], [place], [address], [place] tel:[phone] [place] Urge incontinence 2 Titus Nicolasla. [address] [facility], [address], [place], [address], [place]. tel: [phone] Referring Provider: Servando Bernstein, [address] [facility], [place], [address]. tel:[phone] Family History Family Member Type Diagnosis Age At Onset No Information Payers Payer name Insurance type Covered constitution party ID Authoriza tion(s) Medicare [place] MB [id number] [facility] [id number] Social History Type Description Quantity Date Captured Comments Sex Female Smoking Status No Information Chief Complaint And Reason For Visit No Information Reason For Referral Reason For Referral No Information Plan Of Treatment Date Type Action Status Referral Ordered: Urology (related to Urge incontinence) ordered History Of Present Illness Encounter Date Complaint History Of Prese nt Illness No Information Functional Status Date Functional Assessmen t No Information Instructions Date Instruction Additional Infor mation Kegel exercises were explained to the patient. Related to Urge incontinence Kegel exercises were explained to the patient. Related to Urge incontinence Kegel exercises were explained to the patient. Related to Unspecified urinary incontinence Giving encouragement to exercise Related to Overweight Giving encouragement to exercise Related to Overweight Assessments Type Assessment Date No Information Patient Care Teams Name Effective Dates (start - stop) Status Members No Information
[2024-07-09 13:18] VITALS: BP 115/52; PULSE 64; RESP 18; TEMP 36.2; O2SAT 98
--- NOTE | 2024-07-09 17:58 | ED_ITS ---
HPI - Fall General Chief Complaint: Fall Stated Complaint: FALL Time Seen by Provider: 07/09/24 14:11 History of Present Illness HPI Narrative: Patient presents here after a fall, was witnessed and tripping as she was walking and falling and hitting her head. She does have a slight headache but otherwise denies any complaints. Lives at assisted living Related Data Home Medications ?Medication ?Instructions ?Recorded ?Confirmed ?Last Taken ?Type amlodipine 5 mg tablet 5 mg PO DAILY 08/18/21 03/20/24 03/20/24 History mesalamine 0.375 gram 0.75 g PO BID 08/18/21 03/20/24 03/20/24 History capsule,extended release 24 hr metoprolol tartrate 50 mg tablet 50 mg PO BID 08/18/21 03/20/24 03/20/24 History multivitamin with minerals 1 tablet PO DAILY 08/18/21 03/20/24 03/20/24 History pantoprazole 40 mg tablet,delayed 40 mg PO QPM 08/18/21 03/20/24 03/19/24 History release ferrous sulfate 324 mg (65 mg 324 mg PO DAILY 06/03/23 03/20/24 03/20/24 History iron) tablet,delayed release metformin 750 mg tablet,extended 750 mg PO DAILY 06/03/23 03/20/24 03/20/24 History release 24 hr vedolizumab 300 mg DIRECTED 06/03/23 03/20/24 02/05/24 History aspirin 81 mg capsule 81 mg PO HS 03/20/24 03/20/24 03/19/24 History buspirone 5 mg tablet 5 mg PO BID 03/20/24 03/20/24 03/20/24 History losartan 100 mg tablet 100 mg PO HS 03/20/24 03/20/24 03/19/24 History pravastatin 40 mg tablet 40 mg PO DAILY 03/20/24 03/20/24 03/20/24 History rivastigmine 4.6 mg/24 hour 4.6 mg topical HS 03/20/24 03/20/24 03/18/24 History transdermal patch Allergies Allergy/AdvReac Type Severity Reaction Status Date / Time Penicillins Allergy Rash Verified 06/10/24 01:31 Review of Systems Review of Systems: All systems reviewed & are unremarkable except as noted in HPI and below PMFSH Past Medical History Medical History 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 Family History Family History Mother Diabetes mellitus Hypertension Cancer Cerebrovascular accident Afib Father Cancer Social History Social History Social History: Lives in [place]. Nonsmoker. No alcohol or illicit substance use. 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 Surrogate decision maker: Aby Riley, daughter. Code status: Full code. Smoking status: Never smoker Alcohol intake: never Substance use: never Substance use type: does not use Do You Feel Safe in your Home?: Yes Lack of Transportation: No Lack of Food: Never True Current Housing: I Have Housing Concerned About Future Housing: No Difficulty Paying Gas/Electric Bills: No Difficulty Paying for Meds: No Currently Unemployed: No Education: High School Diploma/GED Difficulty w/ Childcare or Family Care: No Spiritual care concerns: No Exam Narrative: EXAMINATION OF ORGAN SYSTEMS/BODY AREAS: Constitutional: Vital signs per nursing GENERAL:[No acute distress, non-toxic appearing.] HEAD: Very minimal tiny contusion to the back of her head EYES: EOMI, conjunctiva normal ENT: Hearing grossly intact LUNGS: Nonlabored breathing. HEART: [Regular rate and rhythm] ABD: [Soft], [nontender to palpation] EXT: Normal range of motion SKIN: [No rashes or lesions.] NEURO: [Alert and oriented x 3. ] PSYCH: Normal affect Course Vital Signs Vital signs: Vital Signs Temperature 97.1 F L 07/09/24 13:18 Pulse Rate 64 07/09/24 13:18 Respiratory Rate 18 07/09/24 13:18 Blood Pressure 115/52 L 07/09/24 13:18 Pulse Oximetry 98 07/09/24 13:18 Temperature 97.1 F L 07/09/24 13:18 Pulse Rate 64 07/09/24 13:18 Respiratory Rate 18 07/09/24 13:18 Blood Pressure 115/52 L 07/09/24 13:18 Pulse Oximetry 98 07/09/24 13:18 MDM - Fall MDM Narrative Medical decision making narrative: Patient presents here after hitting her head, she does have a small contusion to the back of her head, denies any injury or pain anywhere else. CT head, C-spine are negative for acute abnormality. Granddaughter happy to take her back to assisted living facility. Return precautions provided. Discharge Plan Discharge Clinical Impression: Head injury Patient Disposition: NH Retirement/Asst Living Condition: Stable Instructions: Head Injury (ED) Additional Instructions: Please follow up with your doctor; you can always return for any further issues. Patient Language: French Prescriptions: No Action amlodipine 5 mg tablet 5 mg PO DAILY pantoprazole 40 mg tablet,delayed release (DR/EC) 40 mg PO QPM metoprolol tartrate 50 mg tablet 50 mg PO BID mesalamine 0.375 gram capsule,extended release 24hr 0.75 g PO BID multivitamin with minerals Tablet 1 tablet PO DAILY metformin 750 mg tablet extended release 24 hr 750 mg PO DAILY vedolizumab 300 mg 300 mg DIRECTED Rx Instructions: Every 8 weeks ferrous sulfate 324 mg (65 mg iron) tablet,delayed release (DR/EC) 324 mg PO DAILY buspirone 5 mg tablet 5 mg PO BID pravastatin 40 mg tablet 40 mg PO DAILY losartan 100 mg tablet 100 mg PO HS rivastigmine 4.6 mg/24 hour patch 24 hour 4.6 mg topical HS aspirin 81 mg Capsule 81 mg PO HS lamotrigine [Lamictal] 25 mg Tablet 25 mg PO Q12HR Qty: 60 0RF lamotrigine [Lamictal] 100 mg Tablet 100 mg PO Q12HR Qty: 60 0RF levofloxacin 750 mg tablet 750 mg PO DAILY Qty: 1 0RF Rx Instructions: Take your final tablet on 03/22/24. lacosamide [Vimpat] 100 mg tablet 100 mg PO Q12H Qty: 60 0RF lamotrigine 200 mg tablet 200 mg PO BID Qty: 60 1RF lamotrigine 25 mg tablet 25 mg PO BID 14 Days Qty: 28 0RF cephalexin 500 mg capsule 500 mg PO Q12H 7 Days Qty: 14 0RF acetaminophen 650 mg tablet extended release 650 mg PO Q8H PRN (Reason: pain) Qty: 20 0RF Follow-up/Referrals: Yelitza,Servando Bernstein MD [Primary Care Provider] -
--- OUTSIDE RECORDS SUMMARY | 2024-07-12 19:32 | XMS_ITS | Continuity of Care Document ---
Author Organization [facility] Address [address] [place] [address] Phone Care Team Providers Care Maintenance Painter Apprentice Name Role Phone Saul Ribera PT Unavailable [...] Re-Ed Therapeutic Exercise Hot or Cold Pack Doc neg elder [...] Diagnoses Date Provider Providers Copied on Encounter [facility], [id number], tel:[phone] [place] No Information 3 Bacilio Saul. . [facility], [id number], tel:[phone] [facility] No Information 3 Bacilio Saul. . Referring Provider: Servando Bernstein, [facility] [place], [address]. tel:[phone] [facility] [address], [id number], tel:[phone] [facility] No Information 3 Bacilio Saul. . Referring Provider: Servando Bernstein, [facility] [place], [address]. tel:[phone] [facility] [address], [id number], tel:[phone] [facility] Urge incontinence 3 Bacilio Saul. . Referring Provider: Servando Bernstein, [facility] [place], [address]. tel:[phone] [facility], [address], [place], [place], [id number], [place] tel:[phone] [facility] No Information Franklin-1 3 Bacilio Saul. . Referring Provider: Servando Bernstein, [address] [place], [address]. tel:[phone] [facility] [address], [place], [place], [id number], [place] tel:[phone] [facility] No Information Franklin-1 - 3 Bacilio Saul. . Referring Provider: Servando Bernstein, [address] [place], [address]. tel:[phone] [facility] [address] [address], [place], [place], [id number], tel:[phone] [facility] No Information Franklin-0 6 3 Bacilio Saul. . Referring Provider: Servando Bernstein, [address] [place], [address]. tel:[phone] [facility] [address] [address], [place], [place], [id number], tel:[phone] [facility] No Information Franklin-0 3 Bacilio Saul. . Referring Provider: Servando Bernstein, [address] [place], [address]. tel:[phone] [facility] [address], [place], [place], [id number], [place] tel:[phone] [facility] No Information Franklin-0 - 3 Bacilio Saul. . Referring Provider: Servando Bernstein, [address] [place], [address]. tel:[phone] [facility], [address], [place], [place], [id number], [place] tel:[phone] [facility] No Information November- 3 Bacilio Saul. . Referring Provider: Servando Bernstein, [address] [facility], [place], [address]. tel:[phone] [facility], [address] [address], [place], [place], [id number], tel:[phone] [facility] No Information November- 3 Bacilio Saul. . Referring Provider: Servando Bernstein, [address] [facility], [place], [address]. tel:[phone] [facility], [address] [address], [place], [place], [id number], tel:[phone] [facility] No Information November- 3 Bacilio Saul. . Referring Provider: Servando Bernstein, [address] [place], [address]. tel:[phone] [facility], [address] [address], [place], [place], [id number], tel:[phone] [facility] No Information 3 Bacilio Saul. . Referring Provider: Servando Bernstein, [address] [place], [address]. tel:[phone], [id number], tel:[phone] [facility] No Information November- 3 Bacilio Saul. . Referring Provider: Servando Bernstein, [address] [place], [address]. tel:[phone] [facility], [address] [address], [place], [place], [id number], tel:[phone] [facility] No Information 3 Bacilio Saul. . Referring Provider: Servando Bernstein, [address] [place], [address]. tel:[phone] [facility] [address], [place], [id number], [place] tel:[phone] [facility] No Information May-0 9-202 3 Bacilio Saul. . Referring Provider: Servando Bernstein, [address] [place], [address]. tel:[phone] [facility] [address] [address], [place], [id number], [place] tel:[phone] [facility] No Information May-0 3-202 3 Bacilio Saul. . Referring Provider: Servando Bernstein, [address] [place], [address]. tel:[phone] [facility], [address] [address], [place], [place], [id number], tel:[phone] [facility] No Information May-0 2-202 3 Bacilio Saul. . Referring Provider: Servando Bernstein, [address] [place], [address]. tel:[phone] [facility], [id number], tel:[phone] [facility] No Information Apr-2 7-202 3 Bacilio Saul. . Referring Provider: Servando Bernstein, [address] [place], [address]. tel:[phone] [facility], [id number], [place] tel:[phone] [facility] Unspecified urinary incontinenceUrge incontinence Apr-2 5-202 3 Bacilio Saul. . Referring Provider: Servando Bernstein, [address] [place], [address]. tel:[phone] [facility], [address] [address], [place], [id number], [place] tel:[phone] [facility] No Information Apr-2 0-202 3 Bacilio Saul. . Referring Provider: Servando Bernstein, [address] [facility], [place], [address]. tel:[phone] [facility], [address] [address], [place], [place], [address], tel:[phone] [facility] No Information Apr-1 8-202 3 Bacilio Saul. . Referring Provider: Servando Bernstein, [address] [facility], [place], [address]. tel:[phone] [facility], [address] [address], [place], [id number], [place] tel:[phone] [facility] No Information Apr-1 4-202 3 Bacilio Saul. . Referring Provider: Servando Bernstein, [address] [place], [address]. tel:[phone] [facility], [address] [address], [place], [id number], [place] tel:[phone] [facility] No Information Apr-1 3-202 3 Bacilio Asul. . Referring Provider: Servando Bernstein, [address] [place], [address]. tel:[phone] [facility], [address], [id number], [place] tel:[phone] [facility] No Information Apr-0 6-202 3 Bacilio Saul. . Referring Provider: Servando Bernstein, [address] [place], [address]. tel:[phone] [facility] [address], [place], [id number], [place] tel:[phone] [facility] No Information Apr-0 4-202 3 Bacilio Saul. . Referring Provider: Servando Bernstein, [address] [place], [address]. tel:[phone] [place] [address], [address] [address], [place], [address], [place] tel:[phone] [facility] No Information Mar-3 1-202 3 Bacilio Saul. . Referring Provider: Servando Bernstein, [address] [place], [address]. tel:[phone] [facility] [address], [place], [id number], [place] tel:[phone] [facility] No Information Mar-3 0-202 3 Bacilio Saul. . Referring Provider: Servando Bernstein, [address] [place], [address]. tel:[phone] [facility] [address], [place], [address], tel:[phone] [facility] No Information Mar-2 3-202 3 Bacilio Saul. . Referring Provider: Servando Bernstein, [address] [place], [address]. tel:[phone] [facility], [id number], [place] tel:[phone] [facility] No Information Mar-2 1-202 3 Bacilio Saul. . Referring Provider: Servando Bernstein, [address] [place], [address]. tel:[phone] [facility] [address], [place], [address], [place] tel:[phone] [facility] No Information Mar-1 5- 3 Bacilio Saul. . Referring Provider: Servando Bernstein, [address] [place], [address]. tel:[phone] [facility] [address], [place], [address], [place] tel:[phone] [facility] Unspecified urinary incontinenceUnsp ecified urinary incontinence Mar-1 3-202 3 Bacilio Saul. . Referring Provider: Servando Bernstein, [address] [facility], [place], [address]. tel:[phone] [facility], [address] [address], [place], [address], tel:[phone] [facility] No Information Sep- 3 Bacilio Saul. . Referring Provider: Servando Bernstein, [address] [facility], [place], [address]. tel:[phone] [facility], [address] [address], [place], [id number], [place] tel:[phone] [facility] No Information 3 Bacilio Saul. . Referring Provider: Servando Bernstein, [address] [facility], [place], [address]. tel:[phone] [facility], [address] [address], [place], [id number], [place] tel:[phone] [facility] No Information 3 Bacilio Saul. . Referring Provider: Servando Bernstein, [address] [place], [address]. tel:[phone] [address], [place], [id number], [place] tel:[phone] [facility] No Information 3 Bacliio Saul. . Referring Provider: Servando Bernstein, [address] [facility], [place], [address]. tel:[phone] [facility], [address] [address], [place], [id number], [place] tel:[phone] [place] No Information 3 Fatimah Jimenez. . Referring Provider: Servando Bernstein, [address] [place], [address]. tel:[phone] [facility], [address] [address], [place], [address], [place] tel:[phone] [facility] No Information 3 Bacilio Saul. . Referring Provider: Servando Bernstein, [facility] [place], [address]. tel:[phone] [facility], [address] [address], [place], [address], [place] tel:[phone] [facility] No Information 3 Bacilio Saul. . Referring Provider: Servando Bernstein, [address] [place], [address]. tel:[phone] [facility] [address], [place], [id number], tel:[phone] [facility] No Information 3 Bacilio Saul. . Referring Provider: Servando Bernstein, [address] [place], [address]. tel:[phone] [facility], [id number], [place] tel:[phone] [facility] No Information 3 Bacilio Saul. . Referring Provider: Servando Bernstein, [facility] [place], [address]. tel:[phone] [facility], [id number], [place] tel:[phone] [facility] No Information 3 Bacilio Saul. . Referring Provider: Servando Bernstein, [facility] [place], [address]. tel:[phone] [facility] [address], [place], [address], tel:[phone] [facility] No Information 3 Bacilio Saul. . Referring Provider: Servando Bernstein, [address] [facility], [place], [address]. tel:[phone] [facility] [address] [address], [place], [place], [id number], tel:[phone] [facility] No Information 3 Bacilio Saul. . Referring Provider: Servando Bernstein, [address] [facility], [place], [address]. tel:[phone] [facility], [address] [facility] [address], [place], [place], [id number], [place] tel:[phone] [facility] No Information 3 Bacilio Saul. . Referring Provider: Servando Bernstein, [address] [facility], [place], [address]. tel:[phone] [facility], [address] [address], [place], [id number], tel:[phone] [facility] No Information 3 Bacilio Saul. . Referring Provider: Servando Bernstein, [address] [facility], [place], [address]. tel:[phone] [facility], [address] [place] [address], [place], [place], [id number], tel:[phone] [facility] No Information 3 [place], [place]. Referring Provider: Servando Bernstein, [address] [facility], [place], [address]. tel:[phone] [facility], [address] [facility] [address], [place], [id number], [place] tel:[phone] [facility] No Information 2 Bacilio Saul. . Referring Provider: Servando Bernstein, [address] [facility], [place], [address]. tel:[phone] [facility] [facility] [address], [place], [place], [id number], tel:[phone] [facility] No Information 2 Bacilio Mcdonald . Referring Provider: Servando Bernstein, [facility], [place], [address]. tel:[phone] [facility], [address], [place], [place], [id number], [place] tel:[phone] [place] Urge incontinence 2 Titus Nicolasla. [address] [facility], [address], [place], [address], [place]. tel: [phone] Referring Provider: Servando Bernstein, [address] [facility], [place], [address]. tel:[phone] Family History Family Member Type Diagnosis Age At Onset No Information Payers Payer name Insurance type Covered constitution party ID Authoriza tion(s) Medicare [place] [id number] [facility] [id number] Social History Type Description Quantity Date Captured [...]
--- OUTSIDE RECORDS SUMMARY | 2024-07-12 19:32 | XMS_ITS | Clinical Summary ---
Author Organization [facility] Address [address] [place] [address] [place] [address] Care Team Providers Care Clerical Dentist Assistant Name Role Phone Servando Torre MD Primary Care Provider [phone] Allergies Active Allergy Reactions Criticality Noted Date Comments Penicillins Hives 04/14/2023 Medications metFORMIN 500 MG tablet Take 500 mg by mouth 2 (two) times daily with meals. Active pravastatin 40 MG tablet Take 40 mg by mouth nightly at bedtime. Active amLODIPine 5 MG tablet Take 5 mg by mouth daily. Active metoprolol tartrate 50 MG tablet Take by mouth 2 (two) times daily. Active aspirin EC 81 MG tablet Take 81 mg by mouth nightly. Active vitamin B-12 500 MCG tablet Take 1,000 mcg by mouth daily. Taking sublinguial Active diphenoxylate-a tropine 2.5-0.025 MG tablet Take 1 tablet by mouth 2 (two) times a day. Active pantoprazole EC 40 MG tablet Take 40 mg by mouth nightly. Active ferrous sulfate EC 324 (65 Fe) MG tablet Take 1 tablet (324 mg total) by mouth daily with breakfast. 30 tablet 0 Active Saccharomyces boulardii (PROBIOTIC) 250 MG Cap Active multivitamin with minerals liquid Take 15 mLs by mouth daily. Active azaTHIOprine (IMURAN) 100 MG tabletIndicatio ns:Colitis Take 1 tablet (100 mg total) by mouth daily. 30 tablet 2 2 Active Active Problems Problem Noted Date Diagnosed Date Abnormal liver function tests 05/20/2023 Chronic ulcerative colitis, unspecified complication ([facility]/HCC) 06/18/2022 Ulcerative pancolitis withou t complication ([facility]) 09/04/2021 Overview (09/04/2021): Added automatically from request for surgery [id number] Colitis 03/20/2020 Encounters Date Type Department Care Team Description 05/28/2024 1:43 PM CDT - 05/28/2024 2:55 PM CDT Hospital Encounter [facility] Surgery [address] [place] [address] Josué Cook MD Discharge Disposition: Home or Self Care (Routine Discharge) 05/28/2024 Travel from Last 3 Months Family History Medical History Relation Comments No Known Problems Brother Cancer Father No Known Problems Maternal Aunt No Known Problems Maternal Grandfather No Known Problems Maternal Grandmother No Known Problems Maternal Uncle Stroke Mother No Known Problems Paternal Aunt No Known Problems Paternal Grandfather No Known Problems Paternal Grandmother No Known Problems Paternal Uncle No Known Problems Sister Relation Status Comments Brother Father Maternal Aunt Maternal Grandfather Maternal Grandmother Maternal Uncle Mother Paternal Aunt Paternal Grandfather Paternal Grandmother Paternal Uncle Sister Social History Tobacco Use Types Packs/Day Years Used Date Smoking Tobacco: Never Smokeless Tobacco: Never Tobacco Cessation:Counseling Given: No Alcohol Use Standard Drinks/Week Comments Never 0 (1 standard drink = 0.6 oz pur e alcohol) AUDIT-C Answer Date Recorded Q1: How often do you have a drink containing alc ohol? Never 03/19/2020 Average Number of Drinks Not on file 020 Frequency of Binge Drinking Not on file 02/26 PHQ-2 Answer Date Recorded PHQ-2 Score - If the patient scores above 3, please move on to questions 3-9 0 04/19/2022 Comments No Sex and Gender Information Value Date Recorded Sex Assigned at Not on file Legal Sex Female 4:50 PM CDT Gender Identity Not on file Sexual Orientation Not on file Last Filed Vital Signs Vital Sign Reading Time Taken Comments Blood Pressure 152/59 05/28/2024 2:45 PM CDT Pulse 65 05/28/2024 2:06 PM CDT Temperature 36.8 ??C (98.2 ??F) 05/28/2024 2:06 PM CD T Respiratory Rate 18 05/28/2024 2:06 PM CDT Oxygen Saturation 100% 05/28/2024 2:45 PM CDT Inhaled Oxygen Concentration - - Weight 69.9 kg (154 lb) 04/19/2022 2:44 PM CDT Height 157.5 cm (5' 2 ) 04/19/2022 2:44 PM CDT Body Mass Index 28.17 04/19/2022 2:44 PM CDT Plan of Treatment Upcoming Encounters Date Type Department Care Team (Late st Contact Info) Description 08/03/2024 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 Appointment [facility] Day [address] [phone] Josué Cook MD [address] [facility] [address] [place] [address] Health Maintenance Due Date Last Done Comments DTaP, Tdap and Td Vaccines ( 1 - Tdap) 1964 Annual Medicare Wellness Visit 2008 RSV Immunization or 60+ Years (1 - 1-dose 75+ series) 2018 COVID-19 Vaccine (2 - Pfizer risk series) 06/20/2022 05/30/2022 Influenza Adult (#1) 2024 05/06/2022 Zoster Vaccines Completed 08/01/2020, 05/30/2020 Dexa Scan (General) Completed 12/12/2022 Pneumococcal Vaccine: 65+ Years Completed 03/27/2023 Meningococcal Vaccine Aged Out No elizabeth lang eligible based on patient's age to complete this topic RSV Immunizations Under 20 Months Aged Out No longer eligible b ased on patient's age to complete this topic Goals Goal Patient Goal Type Associated Problems Recent Progress Patient-Stated? Author [facility]IV[facility] General No Vannessa Blackwell, system trainer Procedure Name Priority Date/Time Associated Diagnosis Comments C-REACTIVE PROTEIN Routine 05/28/2024 2: 00 PM CDT Chronic ulcerative colitis, unspecified complication (CMS/HCC HHS/HCC) Abnormal liver function tests CBC W/DIFF AUTOMATED Routine 05/28/2024 2:00 PM CDT Chronic ulcerative colitis, unspecified complication (CMS/HCC HHS/HCC) Abnormal liver function tests COMPREHENSIVE METABOLIC PANEL Routine 05/28/2024 2:00 PM CDT Chronic ulcerative colitis, unspecified complication (CMS/HCC HHS/HCC) Abnormal liver function tests HEPATITIS B CORE ANTIBODY Routine 05/28/2024 2:00 PM CDT Chronic ulcerative colitis, unspecified complication (CMS/HCC HHS/HCC) Abnormal liver function tests HEPATITIS B SURFACE ANTIBODY Routine 05/28/2024 2:00 PM CDT Chronic ulcerative colitis, unspecified complication (CMS/HCC HHS/HCC) Abnormal liver function tests HEPATITIS B SURFACE AG, EIA Routine 05/28/2024 2:00 PM CDT Chronic ulcerative colitis, unspecified complication (CMS/HCC HHS/HCC) Abnormal liver function tests TBGOLD-TUBERCULOSIS TST CELL MEDIATED IMMUNITY Routine 05/28/2024 2:00 PM CDT Chronic ulcerative colitis, unspecified complication (CMS/HCC HHS/HCC) Abnormal liver function tests from Last 3 Months Results * QUANTIFERON TBGOLD TUBERCULOSIS TEST (05/28/2024 2:00 PM CDT) TB1 AG MINUS NIL 0.01 IU/ML 05/31/20 24 1:56 PM [facility] TB2 AG MINUS NIL 0.04 IU/ML 05/31/20 24 1:56 PM [facility] TB QUANTIFERON NEGATIVE NEGATIVE 05/31/2024 1:56 PM [facility] TB INTERPRETATION M. tuberculosis infection unlikely but cannot be excluded especially when any illness is consistent with TB disease and/or likelihood of progression to disease is increased. ?? In patients at high risk to M. tuberculosis infection, a second test should be considered. 05/31/2024 1:56 PM [facility] 05/28/2024 2:00 PM CDT us Josué Cook MD LABORATORY Final Result [facility] [address] [place] [address], [place] [phone] [id number] * (ABNORMAL) COMPREHENSIVE METABOLIC PANEL (05/28/2024 2:00 PM CDT) [facility] GLUCOSE 145(H) 70 - 99 MG/DL 05/28/2024 2:53 PM CDT [facility] BUN 16 7 - 18 MG/DL 05/28/2024 2:53 PM CDT [facility] CREATININE S/P/B 1.12(H) 0.55 - 1.02 MG/DL 05/28/2024 2:53 PM CDT [facility] SODIUM S/P/B 139 136 - 145 MMOL/L 05/28/2024 2:53 PM CDT [facility] POTASSIUM S/P/B 4.0 3.5 - 5.1 MMOL/L 05/28/2024 2:53 PM CDT [facility] CHLORIDE S/P/B 102 100 - 108 MMOL/L 05/28/2024 2:53 PM CDT [facility] CO2 28.6 21 - 32 MMOL/L 05/28/2024 2:53 PM CDT [facility] CALCIUM S/P/B 9.7 8.5 - 10.1 MG/DL 05/28/2024 2:53 PM CDT [facility] BILIRUBIN TOTAL S/P/B 0.2 0.2 - 1.2 MG/DL 05/28/2024 2:53 PM CDT [facility] TOTAL PROTEIN S/P/B 6.9 6.4 - 8.2 G/DL 05/28/2024 2:53 PM CDT [facility] ALBUMIN S/P/B 3.4 3.4 - 5.0 G/DL 05/28/2024 2:53 PM CDT [facility] AST 19 15 - 37 U/L 05/28/2024 2:53 PM CDT [facility] ALT 19 14 - 55 U/L 05/28/2024 2:53 PM CDT [facility] ALKALINE PHOSPHATASE S/P/B 117 50 - 136 U/L 05/28/2024 2:53 PM CDT [facility] ANION GAP 8.4 5 - 15 MMOL/L 05/28/2024 2:53 PM CDT [facility] BUN CREATININE RATIO 14.3 6 - 26 05/28/2024 2:53 PM CDT [facility] A/G RATIO 1.0 1.0 - 2.0 RATIO 05/28/2024 2:53 PM CDT [facility] GFR ESTIMATE 49(L) >90 ML/MIN/1.7 3 M2 05/28/2024 2:53 PM CDT [facility] Comment: NOTE: eGFR is not calculated for patients <18 years of age. This is an estimated GFR calculation using the new CKD EPI creatinine equation without race and so does not require a correction factor for race. This estimated GFR should not be used for calculating drug doses. 05/28/2024 2:00 PM CDT us Josué Cook MD LABORATORY Final Result [facility] [address] [place] [address], * HEPATITIS B SURFACE AG, EIA (05/28/2024 2:00 PM CDT) HEPATITIS B SURFACE AG NON-REACTI VE NON-REACTI VE 05/28/2024 8:[address] [facility] 05/28/2024 2:00 PM CDT us Josué Cook MD LABORATORY Final Result Performing Organization Address City/[facility]/ZIP Co de Phone Number [facility] [address] [place] [address], [place] [phone] * HEPATITIS B SURFACE ANTIBODY (05/28/2024 2:00 PM CDT) HEP B SURFACE AB NON-REACTI VE 05/28/2024 11:[address] [facility] 05/28/2024 2:00 PM CDT us Josué Cook MD LABORATORY Final Result Performing Organization Address City/[facility]/ZIP Co de Phone Number [facility] [address] [place] [address], [place] [phone] * HEPATITIS B CORE ANTIBODY (05/28/2024 2:00 PM CDT) HEP B CORE TOTAL AB NON-REACTI VE NON-REACTI VE 05/28/2024 9:[address] [facility] 05/28/2024 2:00 PM CDT us Josué Cook MD LABORATORY Final Result Performing Organization Address City/[facility]/ZIP Co de Phone Number [facility] [address] [place] [address], [place] [phone] * C-REACTIVE PROTEIN (05/28/2024 2:00 PM CDT) C-REACTIVE PROTEIN <0.29 <0.29 mg/dL 05/28/2024 8:[address] [facility] 05/28/2024 2:00 PM CDT Josué Cook MD LABORATORY Final Result [facility] [address] [place] [address], * (ABNORMAL) CBC W/DIFF AUTOMATED (05/28/2024 2:00 PM CDT) WBC 10.79 4.4 - 11.0 x10'3/uL 05/28/2024 2:34 PM CDT [facility] RBC 4.65 4.50 - 5.10 x10'6/uL 05/28/2024 2:34 PM CDT [facility] HGB 13.6 12.3 - 15.3 G/DL 05/28/2024 2:34 PM CDT [facility] HCT 42.1 35.9 - 44.6 % 05/28/2024 2:34 PM CDT [facility] MCV 90.5 80.0 - 96.0 FL 05/28/2024 2:34 PM CDT [facility] MCH 29.2 25.3 - 30.9 PG 05/28/2024 2:34 PM CDT [facility] MCHC 32.3 31.0 - 34.1 G/DL 05/28/2024 2:34 PM CDT [facility] RDW 13.2 12.4 - 15.1 % 05/28/2024 2:34 PM CDT [facility] PLT 288 151 - 353 x10'3/uL 05/28/2024 2:34 PM CDT [facility] MPV 9.7 9.6 - 12.0 FL 05/28/2024 2:34 PM CDT [facility] RBC MORPHOLOGY NORMAL 05/28/2024 2:34 PM CDT [facility] PLT MORPH. NORMAL 05/28/2024 2:34 PM CDT [facility] WBC MORPHOLOGY NORMAL 05/28/2024 2:34 PM CDT [facility] LYMPHOCYTES % 19.5 15.8 - 45.0 % 05/28/2024 2:34 PM CDT [facility] NEUTROPHILS % 70.3 42.1 - 71.9 % 05/28/2024 2:34 PM CDT [facility] MONOCYTES % 7.3 5.7 - 12.5 % 05/28/2024 2:34 PM CDT [facility] EOSINOPHILS 1.9 0.0 - 5.6 % 05/28/2024 2:34 PM CDT [facility] BASOPHILS 0.6 0.0 - 1.3 % 05/28/2024 2:34 PM CDT [facility] ABS. NEUTROPHILS 7.59(H) 1.40 - 6.00 x10'3/uL 05/28/2024 2:34 PM CDT [facility] IMMATURE GRANS % 0.4 0.0 - 0.5 % 05/28/2024 2:34 PM CDT [facility] ABS. LYMPHOCYTES 2.10 0.80 - 4.70 x10'3/uL 05/28/2024 2:34 PM CDT [facility] 05/28/2024 2:00 PM CDT us Josué Cook MD LABORATORY Final Result [facility] [address] [place] [address], [place] [phone] from Last 3 Months Insurance MEDICARE [facility] Advance Directives * Full Code (Latest Code Status on File) Date Activated Date Inactivated Comments 03/20/2020 11:16 AM 03/23/2020 7:48 PM Care Teams Clerical Dentist Assistant Relationship Specialty Start Date End Date Servando Trore MD [address] [place] [address] [address] [place] [address] PCP - General FAMILY PRACTICE 07/17/22
--- OUTSIDE RECORDS SUMMARY | 2024-07-12 19:33 | XMS_ITS | Encounter Summary ---
Author Organization [facility] Address [address] [place] [address] [place] [address] Care Team Providers Care Supervisor Calibration Name Role Phone Servando Torre MD Primary Care Provider Encounter Details Date Type Department Care Team (Late st Contact Info) Description 07/19/2022 Orders Only [facility] [address] [place] [address] [address] [place] [address] Alen Corbett, DO [address] [address] Social History Tobacco Use Types Packs/Day Years Used Date Smoking Tobacco: Never Smokeless Tobacco: Never Alcohol Use Standard Drinks/Week Comments Never 0 [...] on file Sexual Orientation Not on file COVID-19 Exposure Response Date Recorded In the last 10 days, have yo u been in contact with someone who was confirmed or suspected to have Coronavirus/COVID-19? 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 Answer Date of Assessment Author Status No 03/23/2020 1:13 PM CDT Activ e * Do you have serious difficulty walking or climbing stairs? Answer Date of Assessment Author Status Yes 03/23/2020 1:13 PM CDT Hannah Reagan RN Active * Do you have difficulty dressing or bathing? Answer Date of Assessment Author Status No 03/23/2020 1:13 PM INDRAT Hannah Reagan RN Active * Because of a physical, mental, or emotional condition, do you have difficulty doing errands alone such as visiting a doctor's office or shopping? Answer Date of Assessment Author Status No 03/23/2020 1:13 PM INDRAT Hannah Reagan RN Active documented as of this encounter Mental Status * Because of a physical, mental, or emotional condition, do you have serious difficulty concentrating, remembering, or making decisions? Answer Entry Date Author Status No 03/23/2020 1:13 PM Hannah Gallagher RN Active documented in this encounter Plan of Treatment Upcoming Encounters Date Type Department Care Team (Late st Contact Info) Description 08/03/2024 2:00 PM ELECTRICAL DESIGN ENGINEER Appointment [address] [address] Josué Cook MD [address] [facility] [address] [place] [address] documented as of this encounter Goals Goal Patient Goal Type Associated Problems Recent Progress Patient-Stated? Author [facility]IV[facility] General No Vannessa Blackwell RN documented as of this encounter Visit Diagnoses Not on filedocumented in this encounter Additional Health Concerns Assessment Noted Time PHQ-9 Depression Total Score: 0 07/06/20 21 4:06 PM ELECTRICAL DESIGN ENGINEER documented as of this encounter Care Teams Supervisor Calibration Relationship Specialty Start Date End Date Servando Torre MD [address] [facility] [address] [place] [address] PCP - General FAMILY PRACTICE 07/17/22 documented as of this encounter
--- OUTSIDE RECORDS SUMMARY | 2024-07-12 19:33 | XMS_ITS | Encounter Summary ---
Author Organization [facility] Address [address] [facility] [place] [address] [place] [address] Care Team Providers Care Cdl Flatbed Truck Driver Name Role Phone Servando Torre MD Primary Care Provider [phone] Reason for Visit * Treatment/Therapy Plan Authorization (Routine) - Authorized Specialty Diagnoses / Procedures Referred By Angel braswell Referred To Contact Diagnoses Chronic ulcerative colitis, unspecified complication ([facility]/HCC HHS/HCC) Abnormal liver function tests Procedures VEDOLIZUMAB, INJECTION [facility] [address] [place] [address] Phone: tel: [facility] [address] [place] [address] Phone: tel: Referral ID Status Reason Start Date Expiration Date Visits Requested Visits Authorized [id number] Authorized Medication 05/01/2023 07/27/2024 99 99 Encounter Details Date Type Department Care Team (Latest Contact Info) Description 08/11/2023 2:52 PM JAVA PORTAL DEVELOPER - 08/11/2023 2:55 PM JAVA PORTAL DEVELOPER Hospital Encounter [facility] [address] [place], [place] [id number] Josué Cook MD [address] [facility] [address] [place] [address] Discharge Disposition: Home or Self Care (Routine Discharge) Social History Tobacco Use Types Packs/Day Years [...] on file Sexual Orientation Not on file documented as of this encounter Last Filed Vital Signs Vital Sign Reading Time Taken Comments Blood Pressure 132/57 08/11/2023 2:25 PM JAVA PORTAL DEVELOPER Pulse 63 08/11/2023 2:25 PM JAVA PORTAL DEVELOPER Temperature 36.5 ??C (97.7 ??F) 08/11/2023 1:15 PM CS T Respiratory Rate 16 08/11/2023 2:25 PM JAVA PORTAL DEVELOPER Oxygen Saturation 97% 08/11/2023 1:15 PM JAVA PORTAL DEVELOPER Inhaled Oxygen Concentration - - Weight - - Height - - Body Mass Index - - documented in this encounter Functional Status * RETIRED Are [...] Author Status No 03/23/2020 1:13 PM CDT Hannah Reagan RN Active * Because of a physical, mental, or emotional condition, do you have difficulty doing errands alone such as visiting a doctor's office or shopping? Answer Date of Assessment Author Status No 03/23/2020 1:13 PM CDT Hannah Reagan RN Active documented as of this encounter Mental Status * Because of a physical, mental, or emotional condition, do you have serious difficulty concentrating, remembering, or making decisions? Answer Entry Date Author Status No 03/23/2020 1:13 PM CDT Hannah Reagan RN Active documented in this encounter Medications at Time of Discharge amLODIPine 5 MG tablet Take 5 mg by mouth daily. aspirin EC 81 MG tablet Take 81 mg by mouth nightly. azaTHIOprine (IMURAN) 100 MG tabletIndication s:Colitis Take 1 tablet (100 mg total) by mouth daily. 30 tablet 2 05/01/2022 diphenoxylate-at ropine 2.5-0.025 MG tablet Take 1 tablet by mouth 2 (two) times a day. ferrous sulfate EC 324 (65 Fe) MG tablet Take 1 tablet (324 mg total) by mouth daily with breakfast. 30 tablet 03/23/2020 metFORMIN 500 MG tablet Take 500 mg by mouth 2 (two) times daily with meals. metoprolol tartrate 50 MG tablet Take by mouth 2 (two) times daily. multivitamin with minerals liquid Take 15 mLs by mouth daily. pantoprazole EC 40 MG tablet Take 40 mg by mouth nightly. pravastatin 40 MG tablet Take 40 mg by mouth nightly at bedtime. Saccharomyces boulardii (PROBIOTIC) 250 MG Cap vitamin B-12 500 MCG tablet Take 1,000 mcg by mouth daily. Taking sublinguial documented as of this encounter Plan of Treatment Upcoming Encounters Date Type Department Care Team (Late st Contact Info) Description 08/03/2024 2:00 PM JAVA PORTAL DEVELOPER Appointment [facility] [address] [address] Josué Cook MD [address] [facility] [address] [place] [address] documented as of this encounter Goals Goal Patient Goal Type Associated Problems Recent Progress Patient-Stated? Author HOME TO [facility]DEPENDENT LIV[facility] General No Vannessa Blackwell RN documented as of this encounter Procedures Procedure Name Priority Date/Time Associated Diagnosis Comments COMPREHENSIVE METABOLIC PANEL Routine 08/11/2023 1:25 PM JAVA PORTAL DEVELOPER Chronic ulcerative colitis, unspecified complication (CMS/HCC HHS/HCC) Abnormal liver function tests C-REACTIVE PROTEIN Routine 08/11/2023 1: 25 PM JAVA PORTAL DEVELOPER Chronic ulcerative colitis, unspecified complication (CMS/HCC HHS/HCC) Abnormal liver function tests CBC W/DIFF AUTOMATED Routine 08/11/2023 1:25 PM JAVA PORTAL DEVELOPER Chronic ulcerative colitis, unspecified complication (CMS/HCC HHS/HCC) Abnormal liver function tests documented in this encounter Results * C-REACTIVE PROTEIN (08/11/2023 1:25 PM JAVA PORTAL DEVELOPER) [facility] C-REACTIVE PROTEIN <0.29 <0.29 mg/dL 08/11/2023 7:38 PM JAVA PORTAL DEVELOPER [facility] 08/11/2023 1:25 PM JAVA PORTAL DEVELOPER Josué Cook MD LABORATORY Final Result [facility] [address] [place] [address], * (ABNORMAL) CBC W/DIFF AUTOMATED (08/11/2023 1:25 PM JAVA PORTAL DEVELOPER) [facility] WBC 8.20 4.4 - 11.0 x10'3/uL 08/11/2023 1:47 PM JAVA PORTAL DEVELOPER [facility] RBC 4.34(L) 4.50 - 5.10 x10'6/uL 08/11/2023 1:47 PM JAVA PORTAL DEVELOPER [facility] HGB 13.5 12.3 - 15.3 G/DL 08/11/2023 1:47 PM JAVA PORTAL DEVELOPER [facility] HCT 41.3 35.9 - 44.6 % 08/11/2023 1:47 PM JAVA PORTAL DEVELOPER [facility] MCV 95.2 80.0 - 96.0 FL 08/11/2023 1:47 PM JAVA PORTAL DEVELOPER [facility] MCH 31.1(H) 25.3 - 30.9 PG 08/11/2023 1:47 PM [facility] MCHC 32.7 31.0 - 34.1 G/DL 08/11/2023 1:47 PM [facility] RDW 13.7 12.4 - 15.1 % 08/11/2023 1:47 PM [facility] PLT 228 151 - 353 x10'3/uL 08/11/2023 1:47 PM [facility] MPV 9.1(L) 9.6 - 12.0 FL 08/11/2023 1:47 PM [facility] RBC MORPHOLOGY NORMAL 08/11/2023 1:47 PM [facility] PLT MORPH. NORMAL 08/11/2023 1:47 PM [facility] WBC MORPHOLOGY NORMAL 08/11/2023 1:47 PM [facility] LYMPHOCYTES % 21.7 15.8 - 45.0 % 08/11/2023 1:47 PM [facility] NEUTROPHILS % 63.0 42.1 - 71.9 % 08/11/2023 1:47 PM [facility] MONOCYTES % 9.3 5.7 - 12.5 % 08/11/2023 1:47 PM [facility] EOSINOPHILS 5.1 0.0 - 5.6 % 08/11/2023 1:47 PM [facility] BASOPHILS 0.5 0.0 - 1.3 % 08/11/2023 1:47 PM [facility] ABS. NEUTROPHILS 5.17 1.40 - 6.00 x10'3/uL 08/11/2023 1:47 PM [facility] IMMATURE GRANS % 0.4 0.0 - 0.5 % 08/11/2023 1:47 PM [facility] ABS. LYMPHOCYTES 1.78 0.80 - 4.70 x10'3/uL 08/11/2023 1:47 PM [facility] 08/11/2023 1:25 PM JAVA PORTAL DEVELOPER Josué Cook MD LABORATORY Final Result [facility] [address] [place] [address], [place] [phone] * (ABNORMAL) COMPREHENSIVE METABOLIC PANEL (08/11/2023 1:25 PM JAVA PORTAL DEVELOPER) GLUCOSE 121(H) 70 - 99 MG/DL 08/11/2023 2:06 PM [facility] BUN 18 7 - 18 MG/DL 08/11/2023 2:06 PM [facility] CREATININE S/P/B 1.07(H) 0.55 - 1.02 MG/DL 08/11/2023 2:06 PM [facility] SODIUM S/P/B 137 136 - 145 MMOL/L 08/11/2023 2:06 PM [facility] POTASSIUM S/P/B 3.8 3.5 - 5.1 MMOL/L 08/11/2023 2:06 PM [facility] CHLORIDE S/P/B 101 100 - 108 MMOL/L 08/11/2023 2:06 PM [facility] CO2 28.4 21 - 32 MMOL/L 08/11/2023 2:06 PM [facility] CALCIUM S/P/B 9.8 8.5 - 10.1 MG/DL 08/11/2023 2:06 PM [facility] BILIRUBIN TOTAL S/P/B 0.4 0.2 - 1.2 MG/DL 08/11/2023 2:06 PM [facility] TOTAL PROTEIN S/P/B 7.1 6.4 - 8.2 G/DL 08/11/2023 2:06 PM [facility] ALBUMIN S/P/B 3.3(L) 3.4 - 5.0 G/DL 08/11/2023 2:06 PM [facility] AST 17 15 - 37 U/L 08/11/2023 2:06 PM [facility] ALT 27 14 - 55 U/L 08/11/2023 2:06 PM [facility] ALKALINE PHOSPHATASE S/P/B 104 50 - 136 U/L 08/11/2023 2:06 PM [facility] ANION GAP 7.6 5 - 15 MMOL/L 08/11/2023 2:06 PM [facility] BUN CREATININE RATIO 16.8 6 - 26 08/11/2023 2:06 PM [facility] A/G RATIO 0.9(L) 1.0 - 2.0 RATIO 08/11/2023 2:06 PM [facility] GFR ESTIMATE 53(L) >90 ML/MIN/1.7 3 M2 08/11/2023 2:06 PM [facility] Comment: NOTE: eGFR is not calculated for patients <18 years of age. This is an estimated GFR calculation using the new CKD EPI creatinine equation without race and so does not require a correction factor for race. This estimated GFR should not be used for calculating drug doses. 08/11/2023 1:25 PM JAVA PORTAL DEVELOPER Josué Cook MD LABORATORY Final Result [facility] [address] [place] [address], documented in this encounter Visit Diagnoses Diagnosis Chronic ulcerative colitis, unspecified complication (CMS/HCC HHS/HCC)- Primary Abnormal liver function tests Other abnormal blood chemistry documented in this encounter Administered Medications Inactive Administered Medications - up to 3 most recent administrations Medication Order MAR Action Action Date Dose Rate Site acetaminophen (TYLENOL) tablet 500 mg 500 mg, Oral, As needed, Other, for reaction, Starting on Fri08/11/23 at 1312, Until Fri08/11/23 at 1710, Maximum dose of acetaminophen is 4000 mg from all sources in 24 hours.Indications:Chronic ulcerative colitis, unspecified complication (CMS/HCC HHS/HCC),Abnormal liver function tests acetaminophen (TYLENOL) tablet 650 mg 650 mg, Oral, Once as needed, Other, pre med, 1 dose, Starting on Fri08/11/23 at 1312, Until Fri08/11/23 at 1318, Maximum dose of acetaminophen is 4000 mg from all sources in 24 hours.Indications:Chronic ulcerative colitis, unspecified complication (CMS/HCC HHS/HCC),Abnormal liver function tests Given 08/11/2023 1:18 PM JAVA PORTAL DEVELOPER 650 mg diphenhydrAMINE (BENADRYL) capsule 25 mg 25 mg, Oral, Once as needed, Other, premed, 1 dose, Starting on Fri08/11/23 at 1312, Until Fri08/11/23 at 1318Indications:Chronic ulcerative colitis, unspecified complication (CMS/HCC HHS/HCC),Abnormal liver function tests Given 08/11/2023 1:18 PM JAVA PORTAL DEVELOPER 25 mg diphenhydrAMINE (BENADRYL) injection 25 mg 25 mg, Intravenous, Once as needed, Severe hypersensitivity reaction (dyspnea, bronchospasm, urticaria, flushing, rash, and increased heart rate), Starting on Fri08/11/23 at 1312, Until Fri08/11/23 at 1710, For IV administration, give no faster than 25 mg/min. For severe hypersensitivity reaction (dyspnea, bronchospasm, urticaria, flushing, rash, and increased heart rate).Indications:Chronic ulcerative colitis, unspecified complication (CMS/HCC HHS/HCC),Abnormal liver function tests EPINEPHrine PF (ADRENALIN) 1 mg/mL injection 0.3 mg 0.3 mg, Intramuscular, Every 5 min PRN, Other, Severe hypersensitivity reaction (dyspnea, bronchospasm, urticaria, flushing, rash, and increased heart rate), 3 doses, Starting on Fri08/11/23 at 1312, Until Fri08/11/23 at 1710, Severe hypersensitivity reaction (dyspnea, bronchospasm, urticaria, flushing, rash, and increased heart rate)Indications:Chronic ulcerative colitis, unspecified complication (CMS/HCC HHS/HCC),Abnormal liver function tests hydrocortisone sodium succinate (Solu-CORTEF) injection 100 mg 100 mg, Intravenous, Once as needed, Severe hypersensitivity reaction (dyspnea, bronchospasm, urticaria, flushing, rash, and increased heart rate), Starting on Fri08/11/23 at 1312, Until Fri08/11/23 at 1710, Administer over 1-2 minutes. For severe hypersensitivity reaction (dyspnea, bronchospasm, urticaria, flushing, rash, and increased heart rate).Indications:Chronic ulcerative colitis, unspecified complication (CMS/HCC HHS/HCC),Abnormal liver function tests vedolizumab (ENTYVIO) 300 mg in sodium chloride 0.9 % 250 mL IVPB 300 mg, Intravenous, Administer over 30 Minutes, Once, 1 dose, On Fri08/11/23 at 1330, Provider Instruction: Therapy should not be continued after week 14 if no therapeutic benefit is seen. Do not administer IV push or bolus. Flush line with 30 mL NS after completion.Indications:Chronic ulcerative colitis, unspecified complication (CMS/HCC HHS/HCC),Abnormal liver function tests New Bag 08/11/2023 1:46 PM JAVA PORTAL DEVELOPER 300 mg 500 mL/hr documented in this encounter Active and Recently Administered Medications Times are shown in JAVA PORTAL DEVELOPER. Scheduled Medication Order 08/09/2023 08/10/2023 08/11/2023 vedolizumab (ENTYVIO) 300 mg in sodium chloride 0.9 % 250 mL IVPB (COMPLETED) 300 mg, Intravenous, Administer over 30 Minutes, Once, 1 dose, On Fri08/11/23 at 1330, Provider Instruction: Therapy should not be continued after week 14 if no therapeutic benefit is seen. Do not administer IV push or bolus. Flush line with 30 mL NS after completion. 1346 (New Bag - Prov ider: Varsha Christie RN)1430 (Infusion Stop Time - Provider: Varsha Christie RN) PRN Medication Order 08/09/2023 08/10/2023 08/11/2023 acetaminophen (TYLENOL) tablet 500 mg 500 mg, Oral, As needed, Other, for reaction, Starting on Fri08/11/23 at 1312, Until Fri08/11/23 at 1710, Maximum dose of acetaminophen is 4000 mg from all sources in 24 hours. acetaminophen (TYLENOL) tablet 650 mg (COMPLETED) 650 mg, Oral, Once as needed, Other, pre med, 1 dose, Starting on Fri08/11/23 at 1312, Until Fri08/11/23 at 1318, Maximum dose of acetaminophen is 4000 mg from all sources in 24 hours. 1318 (Given - Provid er: Varsha Christie RN - Comment: premed) diphenhydrAMINE (BENADRYL) capsule 25 mg (COMPLETED) 25 mg, Oral, Once as needed, Other, premed, 1 dose, Starting on Fri08/11/23 at 1312, Until Fri08/11/23 at 1318 1318 (Given - Provid er: Varsha Christie RN - Comment: premed) diphenhydrAMINE (BENADRYL) injection 25 mg 25 mg, Intravenous, Once as needed, Severe hypersensitivity reaction (dyspnea, bronchospasm, urticaria, flushing, rash, and increased heart rate), Starting on Fri08/11/23 at 1312, Until Fri08/11/23 at 1710, For IV administration, give no faster than 25 mg/min. For severe hypersensitivity reaction (dyspnea, bronchospasm, urticaria, flushing, rash, and increased heart rate). EPINEPHrine PF (ADRENALIN) 1 mg/mL injection 0.3 mg 0.3 mg, Intramuscular, Every 5 min PRN, Other, Severe hypersensitivity reaction (dyspnea, bronchospasm, urticaria, flushing, rash, and increased heart rate), 3 doses, Starting on Fri08/11/23 at 1312, Until Fri08/11/23 at 1710, Severe hypersensitivity reaction (dyspnea, bronchospasm, urticaria, flushing, rash, and increased heart rate) hydrocortisone sodium succinate (Solu-CORTEF) injection 100 mg 100 mg, Intravenous, Once as needed, Severe hypersensitivity reaction (dyspnea, bronchospasm, urticaria, flushing, rash, and increased heart rate), Starting on Fri08/11/23 at 1312, Until Fri08/11/23 at 1710, Administer over 1-2 minutes. For severe hypersensitivity reaction (dyspnea, bronchospasm, urticaria, flushing, rash, and increased heart rate). documented in this encounter Additional Health Concerns Assessment Noted Time PHQ-9 Depression Total Score: 0 07/06/20 4:06 PM JAVA PORTAL DEVELOPER documented as of this encounter Care Teams Cdl Flatbed Truck Driver Relationship Specialty Start Date End Date Servando Torre MD [address] [place] [address] [address] [place] [address] PCP - General FAMILY PRACTICE 07/17/22 documented as of this encounter
--- OUTSIDE RECORDS SUMMARY | 2024-07-12 19:33 | XMS_ITS | Encounter Summary ---
Author Organization [facility] Address [address] [facility] [place] [address] [place] [address] Care Team Providers Care Move Coordinator Name Role Phone Jared Abrams MD Primary Care Provider [phone] Encounter Details Date Type Department Care Team (Late st Contact Info) Description 06/20/2022 Orders Only [facility] [address] [facility] [address] [place] [id number] Alen Corbett, DO [address] [address] Social History Tobacco Use Types Packs/Day Years [...] on file documented as of this encounter Functional Status [...] Reagan RN Active documented in this encounter Plan of Treatment Upcoming Encounters Date Type Department Care Team (Late st Contact Info) Description 08/03/2024 2:00 PM CHIP SILO TENDER Appointment [address] [address] Josué Cook MD [address] [address] documented as of this encounter Goals Goal Patient Goal Type Associated Problems Recent Progress Patient-Stated? Author HOME TO [facility]DEP[facility]IV[facility] General No Vannessa Blackwell RN documented as of this encounter Visit Diagnoses Not on filedocumented in this encounter Additional Health Concerns Assessment Noted Time PHQ-9 Depression Total Score: 0 07/06/20 21 4:06 PM CHIP SILO TENDER documented as of this encounter Care Teams Move Coordinator Relationship Specialty Start Date End Date Jraed Abrams MD PCP - General 08/28/11 07/16/22 documented as of this encounter
--- OUTSIDE RECORDS SUMMARY | 2024-07-12 19:33 | XMS_ITS | Encounter Summary ---
Author Organization [facility] Address [address] [place] [address] [place] [address] Care Team Providers Care Rerecording Mixer Name Role Phone Servando Torre MD Primary Care Provider [phone] Reason for Visit * Treatment/Therapy Plan Authorization (Routine) - Authorized Specialty Diagnoses / Procedures Referred By Angel braswell Referred To Contact Diagnoses Chronic ulcerative colitis, unspecified complication ([facility]/HCC HHS/HCC) Abnormal liver function tests Procedures VEDOLIZUMAB, INJECTION [facility] [address] [place] [address] Phone: tel: [facility] [address] [place] [address] Phone: tel: Referral ID Status Reason Start Date Expiration Date Visits Requested Visits Authorized [id number] Authorized Medication 05/01/2023 07/27/2024 99 99 Encounter Details Date Type Department Care Team (Latest Contact Info) Description 10/07/2023 1:33 PM CDT - 10/07/2023 3:00 PM CDT Hospital Encounter [facility] [address] [place] [address] Josué Cook MD [address] [facility] [address] [place] [address] Discharge Disposition: Home or Self Care (Routine [...] Sign Reading Time Taken Comments Blood Pressure 146/77 10/07/2023 1:46 PM CDT Pulse 65 10/07/2023 1:46 PM CDT Temperature 36.7 ??C (98.1 ??F) 10/07/2023 1:46 PM CD T Respiratory Rate 16 10/07/2023 1:46 PM CDT Oxygen Saturation 96% 10/07/2023 1:46 PM CDT Inhaled Oxygen Concentration - - Weight - [...] st Contact Info) Description 08/03/2024 2:00 PM HAND PAINTER Appointment [address] [address] Josué Cook MD [address] [facility] [address] [place] [address] documented as of this encounter Goals Goal Patient Goal Type Associated Problems Recent Progress Patient-Stated? Author HOME TO INDEPENDENT LIVING General No Vannessa Blackwell RN documented as of this encounter Procedures Procedure Name Priority Date/Time Associated Diagnosis Comments MISCELLANEOUS LAB TEST Routine 10/07/2023 1:39 PM CDT Chronic ulcerative colitis, unspecified complication (CMS/HCC HHS/HCC) Abnormal liver function tests COMPREHENSIVE METABOLIC PANEL Routine 10/07/2023 1:39 PM CDT Chronic ulcerative colitis, unspecified complication (CMS/HCC HHS/HCC) Abnormal liver function tests C-REACTIVE PROTEIN Routine 10/07/2023 1: 39 PM CDT Chronic ulcerative colitis, unspecified complication (CMS/HCC HHS/HCC) Abnormal liver function tests CBC W/DIFF AUTOMATED Routine 10/07/2023 1:39 PM CDT Chronic ulcerative colitis, unspecified complication (CMS/HCC HHS/HCC) Abnormal liver function tests documented in this encounter Results * C-REACTIVE PROTEIN (10/07/2023 1:39 PM CDT) Pathologist [facility] [place] C-REACTIVE PROTEIN <0.29 <0.29 mg/dL 10/07/2023 7:35 PM CDT [facility] 10/07/2023 1:39 PM CDT us Josué Cook MD LABORATORY Final Result [facility] [address] [place] [address], [place] [phone] * (ABNORMAL) CBC W/DIFF AUTOMATED (10/07/2023 1:39 PM CDT) Pathologist [facility] WBC 7.69 4.4 - 11.0 x10'3/uL 10/07/2023 1:59 PM CDT [facility] RBC 4.61 4.50 - 5.10 x10'6/uL 10/07/2023 1:59 PM CDT [facility] HGB 14.1 12.3 - 15.3 G/DL 10/07/2023 1:59 PM CDT [facility] HCT 43.3 35.9 - 44.6 % 10/07/2023 1:59 PM CDT [facility] MCV 93.9 80.0 - 96.0 FL 10/07/2023 1:59 PM CDT [facility] MCH 30.6 25.3 - 30.9 PG 10/07/2023 1:59 PM CDT [facility] MCHC 32.6 31.0 - 34.1 G/DL 10/07/2023 1:59 PM CDT [facility] RDW 13.5 12.4 - 15.1 % 10/07/2023 1:59 PM T [facility] PLT 248 151 - 353 x10'3/uL 10/07/2023 1:59 PM T [facility] MPV 9.4(L) 9.6 - 12.0 FL 10/07/2023 1:59 PM T [facility] RBC MORPHOLOGY NORMAL 10/07/2023 1:59 PM T [facility] PLT MORPH. NORMAL 10/07/2023 1:59 PM T [facility] WBC MORPHOLOGY NORMAL 10/07/2023 1:59 PM T [facility] LYMPHOCYTES % 11.8(L) 15.8 - 45.0 % 10/07/2023 1:59 PM CDT [facility] NEUTROPHILS % 84.7(H) 42.1 - 71.9 % 10/07/2023 1:59 PM CDT [facility] MONOCYTES % 1.8(L) 5.7 - 12.5 % 10/07/2023 1:59 PM T [facility] EOSINOPHILS 0.9 0.0 - 5.6 % 10/07/2023 1:59 PM CDT [facility] BASOPHILS 0.5 0.0 - 1.3 % 10/07/2023 1:59 PM CDT [facility] ABS. NEUTROPHILS 6.51(H) 1.40 - 6.00 x10'3/uL 10/07/2023 1:59 PM CDT [facility] IMMATURE GRANS % 0.3 0.0 - 0.5 % 10/07/2023 1:59 PM CDT [facility] ABS. LYMPHOCYTES 0.91 0.80 - 4.70 x10'3/uL 10/07/2023 1:59 PM CDT [facility] 10/07/2023 1:39 PM CDT us Josué Cook MD LABORATORY Final Result [facility] [address] [place] [id number], [place] [phone] * (ABNORMAL) COMPREHENSIVE METABOLIC PANEL (10/07/2023 1:39 PM CDT) GLUCOSE 185(H) 70 - 99 MG/DL 10/07/2023 2:29 PM CDT [facility] BUN 19(H) 7 - 18 MG/DL 10/07/2023 2:29 PM CDT [facility] CREATININE S/P/B 1.07(H) 0.55 - 1.02 MG/DL 10/07/2023 2:29 PM CDT [facility] SODIUM S/P/B 141 136 - 145 MMOL/L 10/07/2023 2:29 PM CDT [facility] POTASSIUM S/P/B 4.5 3.5 - 5.1 MMOL/L 10/07/2023 2:29 PM CDT [facility] CHLORIDE S/P/B 102 100 - 108 MMOL/L 10/07/2023 2:29 PM [facility] CO2 29.8 21 - 32 MMOL/L 10/07/2023 2:29 PM [facility] CALCIUM S/P/B 9.8 8.5 - 10.1 MG/DL 10/07/2023 2:29 PM [facility] BILIRUBIN TOTAL S/P/B 0.2 0.2 - 1.2 MG/DL 10/07/2023 2:29 PM [facility] TOTAL PROTEIN S/P/B 7.6 6.4 - 8.2 G/DL 10/07/2023 2:29 PM [facility] ALBUMIN S/P/B 3.7 3.4 - 5.0 G/DL 10/07/2023 2:29 PM [facility] AST 12(L) 15 - 37 U/L 10/07/2023 2:29 PM [facility] ALT 18 14 - 55 U/L 10/07/2023 2:29 PM [facility] ALKALINE PHOSPHATASE S/P/B 98 50 - 136 U/L 10/07/2023 2:29 PM [facility] ANION GAP 9.2 5 - 15 MMOL/L 10/07/2023 2:29 PM [facility] BUN CREATININE RATIO 17.8 6 - 26 10/07/2023 2:29 PM [facility] A/G RATIO 0.9(L) 1.0 - 2.0 RATIO 10/07/2023 2:29 PM [facility] GFR ESTIMATE 53(L) >90 ML/MIN/1.7 3 M2 10/07/2023 2:29 PM [facility] Comment: NOTE: eGFR is not calculated for patients <18 years of age. This is an estimated GFR calculation using the new CKD EPI creatinine equation without race and so does not require a correction factor for race. This estimated GFR should not be used for calculating drug doses. 10/07/2023 1:39 PM CDT Josué Cook MD LABORATORY Final Result [facility] [address] [place] [address], * (ABNORMAL) MISCELLANEOUS LAB TEST (10/07/2023 1:39 PM CDT) TEST NAME: [id number] VEDOLIZUMAB 10/07/2023 1:57 PM CDT [facility] SPECIMEN TYPE SERUM 10/07/2023 1:57 PM CDT [facility] TEST RESULT: Flexitest 1(A) 10/14/19 24 4:17 PM CDT [employer] J[facility]NIOR KATE Comment: Flexitest 1 TESTS RESULTS--------UNITS--REF. RANGE--- Vedolizumab QN, S ?10.9 L ? mcg/mL ?? REFERENCE VALUE Lower limit of quantitation = 2.0 mcg/mL ADDITIONAL INFORMATION This test was developed and its performance characteristics determined by [facility] in a manner consistent with CLIA requirements. This test has not been cleared or approved by the U.S. Food and Drug Administration. Vedolizumab Ab, S ?<9.8 ?ng/mL ??<9.8 VEMAB Interpretation ? REPORT ? RESULT: Absence of detectable yktfpqpk-[id number]-kimhryuqroc. ADDITIONAL INFORMATION This test was developed and its performance characteristics determined by [facility] in a manner consistent with CLIA requirements. This test has not been cleared or approved by the U.S. Food and Drug Administration. Test performed by: ? [facility] ? [address] ? [place] [address] ? Certified Art Therapist: Holden Redman M.D., Ph.D; CLIA# [id number] Test Reported by Sierra Nelson, [facility], [address] [place] [address] Gamal Gao M.D., Ph.D., Director of Laboratories , CLIA [id number] 10/07/2023 1:39 PM CDT Josué Cook MD LABORATORY Final Result Performing Organization Address City/State/[facility] Co de Phone Number [id number] [place], [place] , [place] [phone] [facility] [address] [place] [address], [place] [phone] documented in this encounter Visit Diagnoses Diagnosis Chronic ulcerative colitis, unspecified complication (CMS/HCC HHS/HCC)- Primary Abnormal liver function tests Other abnormal blood chemistry documented in this encounter Administered Medications Inactive Administered Medications - up to 3 most recent administrations Medication Order MAR Action Action Date Dose Rate Site acetaminophen (TYLENOL) tablet 500 mg 500 mg, Oral, As needed, Other, for reaction, Starting on Fri10/07/23 at 1338, Until Fri10/07/23 at 1700, Maximum dose of acetaminophen is 4000 mg from all sources in 24 hours.Indications:Chronic ulcerative colitis, unspecified complication (CMS/HCC HHS/HCC),Abnormal liver function tests acetaminophen (TYLENOL) tablet 650 mg 650 mg, Oral, Once as needed, Other, pre med, 1 dose, Starting on Fri10/07/23 at 1338, Until Fri10/07/23 at 1700, Maximum dose of acetaminophen is 4000 mg from all sources in 24 hours.Indications:Chronic ulcerative colitis, unspecified complication (CMS/HCC HHS/HCC),Abnormal liver function tests diphenhydrAMINE (BENADRYL) capsule 25 mg 25 mg, Oral, Once as needed, Other, premed, 1 dose, Starting on Fri10/07/23 at 1338, Until Fri10/07/23 at 1700Indications:Chronic ulcerative colitis, unspecified complication (CMS/HCC HHS/HCC),Abnormal liver function tests diphenhydrAMINE (BENADRYL) injection 25 mg 25 mg, Intravenous, Once as needed, Severe hypersensitivity reaction (dyspnea, bronchospasm, urticaria, flushing, rash, and increased heart rate), Starting on Fri10/07/23 at 1338, Until Fri10/07/23 at 1700, For IV administration, give no faster than 25 mg/min. For severe hypersensitivity reaction (dyspnea, bronchospasm, urticaria, flushing, rash, and increased heart rate).Indications:Chronic ulcerative colitis, unspecified complication (CMS/HCC HHS/HCC),Abnormal liver function tests EPINEPHrine PF (ADRENALIN) 1 mg/mL injection 0.3 mg 0.3 mg, Intramuscular, Every 5 min PRN, Other, Severe hypersensitivity reaction (dyspnea, bronchospasm, urticaria, flushing, rash, and increased heart rate), 3 doses, Starting on Fri10/07/23 at 1338, Until Fri10/07/23 at 1700, Severe hypersensitivity reaction (dyspnea, bronchospasm, urticaria, flushing, rash, and increased heart rate)Indications:Chronic ulcerative colitis, unspecified complication (CMS/HCC HHS/HCC),Abnormal liver function tests hydrocortisone sodium succinate (Solu-CORTEF) injection 100 mg 100 mg, Intravenous, Once as needed, Severe hypersensitivity reaction (dyspnea, bronchospasm, urticaria, flushing, rash, and increased heart rate), Starting on Fri10/07/23 at 1338, Until Fri10/07/23 at 1700, Administer over 1-2 minutes. For severe hypersensitivity reaction (dyspnea, bronchospasm, urticaria, flushing, rash, and increased heart rate).Indications:Chronic ulcerative colitis, unspecified complication (CMS/HCC HHS/HCC),Abnormal liver function tests vedolizumab (ENTYVIO) 300 mg in sodium chloride 0.9 % 250 mL IVPB 300 mg, Intravenous, Administer over 30 Minutes, Once, 1 dose, On Fri10/07/23 at 1415, Provider Instruction: Therapy should not be continued after week 14 if no therapeutic benefit is seen. Do not administer IV push or bolus. Flush line with 30 mL NS after completion.Indications:Chronic ulcerative colitis, unspecified complication (CMS/HCC HHS/HCC),Abnormal liver function tests New Bag 10/07/2023 2:07 PM CDT 300 mg 500 mL/hr documented in this encounter Active and Recently Administered Medications Due to Daylight Saving Time, this section may contain times in both HAND PAINTER and CDT. Scheduled Medication Order 10/05/2023 10/06/2023 10/07/2023 vedolizumab (ENTYVIO) 300 mg in sodium chloride 0.9 % 250 mL IVPB (COMPLETED) 300 mg, Intravenous, Administer over 30 Minutes, Once, 1 dose, On Fri10/07/23 at 1415, Provider Instruction: Therapy should not be continued after week 14 if no therapeutic benefit is seen. Do not administer IV push or bolus. Flush line with 30 mL NS after completion. 1407 (New Bag - Prov ider: Vee Bernstein RN)1445 (Infusion Stop Time - Provider: Vee Bernstein RN) PRN Medication Order 10/05/2023 10/06/2023 10/07/2023 acetaminophen (TYLENOL) tablet 500 mg 500 mg, Oral, As needed, Other, for reaction, Starting on Fri10/07/23 at 1338, Until Fri10/07/23 at 1700, Maximum dose of acetaminophen is 4000 mg from all sources in 24 hours. acetaminophen (TYLENOL) tablet 650 mg 650 mg, Oral, Once as needed, Other, pre med, 1 dose, Starting on Fri10/07/23 at 1338, Until Fri10/07/23 at 1700, Maximum dose of acetaminophen is 4000 mg from all sources in 24 hours. diphenhydrAMINE (BENADRYL) capsule 25 mg 25 mg, Oral, Once as needed, Other, premed, 1 dose, Starting on Fri10/07/23 at 1338, Until Fri10/07/23 at 1700 diphenhydrAMINE (BENADRYL) injection 25 mg 25 mg, Intravenous, Once as needed, Severe hypersensitivity reaction (dyspnea, bronchospasm, urticaria, flushing, rash, and increased heart rate), Starting on Fri10/07/23 at 1338, Until Fri10/07/23 at 1700, For IV administration, give no faster than 25 mg/min. For severe hypersensitivity reaction (dyspnea, bronchospasm, urticaria, flushing, rash, and increased heart rate). EPINEPHrine PF (ADRENALIN) 1 mg/mL injection 0.3 mg 0.3 mg, Intramuscular, Every 5 min PRN, Other, Severe hypersensitivity reaction (dyspnea, bronchospasm, urticaria, flushing, rash, and increased heart rate), 3 doses, Starting on Fri10/07/23 at 1338, Until Fri10/07/23 at 1700, Severe hypersensitivity reaction (dyspnea, bronchospasm, urticaria, flushing, rash, and increased heart rate) hydrocortisone sodium succinate (Solu-CORTEF) injection 100 mg 100 mg, Intravenous, Once as needed, Severe hypersensitivity reaction (dyspnea, bronchospasm, urticaria, flushing, rash, and increased heart rate), Starting on Fri10/07/23 at 1338, Until Fri10/07/23 at 1700, Administer over 1-2 minutes. For severe hypersensitivity reaction (dyspnea, bronchospasm, urticaria, flushing, rash, and increased heart rate). documented in this encounter Additional Health Concerns Assessment Noted Time PHQ-9 Depression Total Score: 0 07/06/20 21 4:06 PM HAND PAINTER documented as of this encounter Care Teams Rerecording Mixer Relationship Specialty Start Date End Date Servando Torre MD [address] [place] [address] [address] [place] [address] PCP - General FAMILY PRACTICE 07/17/22 documented as of this encounter
--- OUTSIDE RECORDS SUMMARY | 2024-07-12 19:33 | XMS_ITS | Encounter Summary ---
Author Organization [facility] Address [address] [facility] [place] [address] [place] [address] Care Team Providers Care Laundry Clerk Name Role Phone Servando Torre MD Primary Care Provider Encounter Details Date Type Department Care Team (Late st Contact Info) Description 04/05/2024 Orders Only [facility] [address] [place] [address] Derick Martínez MD [address] [facility] [address] [place] [address] Social History Tobacco Use Types Packs/Day Years [...] Author Status No 03/23/2020 1:13 PM CDT Acti ve * RETIRED Are you blind or do [...] st Contact Info) Description 08/03/2024 2:00 PM NET DEVELOPMENT MANAGER Appointment [address] [address] Josué Cook MD [address] [address] documented as of this encounter Goals Goal Patient Goal Type Associated Problems Recent Progress Patient-Stated? Author HOME TO INDEPENDENT LIVING [facility] No Vannessa Blackwell RN documented as of this encounter Visit Diagnoses Not on filedocumented in this encounter Additional Health Concerns Assessment Noted Time PHQ-9 Depression Total Score: 0 07/06/20 4:06 PM NET DEVELOPMENT MANAGER documented as of this encounter Care Teams Laundry Clerk Relationship Specialty Start Date End Date Servando Torre MD [address] [place] [address] [address] [place] [address] PCP - General FAMILY PRACTICE 07/17/22 documented as of this encounter
--- OUTSIDE RECORDS SUMMARY | 2024-07-12 19:33 | XMS_ITS | Encounter Summary ---
Author Organization [facility] Address [address] [facility] [place] [address] [place] [address] Care Team Providers Care Presentation Designer Name Role Phone Servando Torre MD Primary Care Provider [phone] Encounter Details Date Type Department Care Team (Latest Contact Info) Description 05/28/2024 Travel Social History Tobacco Use Types Packs/Day Years [...] Assessment Author Status No 03/23/2020 1:13 PM Hannah Gallagher RN Active * Because of a physical, mental, or emotional condition, do you have difficulty doing errands alone such as visiting a doctor's office or shopping? Answer Date of Assessment Author Status No 03/23/2020 1:13 PM Hannah Gallagher RN Active documented as of this encounter Mental Status * Because of a physical, mental, or emotional condition, do you have serious difficulty concentrating, remembering, or making decisions? Answer Entry Date Author Status No 03/23/2020 1:13 PM Hannah Gallagher RN Active documented in this encounter Plan of Treatment Upcoming Encounters Date Type Department Care Team (Late st Contact Info) Description 08/03/2024 2:00 PM BELLING MACHINE OPERATOR Appointment [facility] [id number] [place] [address] Josué Cook MD [address] [address] documented as of this encounter Goals Goal Patient Goal Type Associated Problems Recent Progress Patient-Stated? Author HOME TO [facility] Vannessa Light RN documented as of this encounter Visit Diagnoses Not on filedocumented in this encounter Additional Health Concerns Assessment Noted Time PHQ-9 Depression Total Score: 0 07/06/20 21 4:06 PM BELLING MACHINE OPERATOR documented as of this encounter Care Teams Presentation Designer Relationship Specialty Start Date End Date Servando Torre MD [address] [place] [address] [address] [place] [address] PCP - General FAMILY PRACTICE 07/17/22 documented as of this encounter
--- OUTSIDE RECORDS SUMMARY | 2024-07-12 19:33 | XMS_ITS | Encounter Summary ---
Author Organization [facility] Address [address] [place] [address] [place] [address] Care Team Providers Care Solar Energy Advisor Name Role Phone Servando Torre MD Primary Care Provider Encounter Details Date Type Department Care Team (Latest Contact Info) Description 12/18/2022 Travel Social History Tobacco Use Types Packs/Day [...] suspected to have Coronavirus/COVID-19? No / Unsure 12/18/2022 1:39 PM CDT documented as of this encounter Functional Status [...] st Contact Info) Description 08/03/2024 2:00 PM PRODUCTION TESTER Appointment [address] [address] Josué Cook MD [address] [address] documented as of this encounter Goals Goal Patient Goal Type Associated Problems Recent Progress Patient-Stated? Author HOME TO INDEPENDENT LIVING [facility] No Vannessa Blackwell RN documented as of this encounter Visit Diagnoses Not on filedocumented in this encounter Additional Health Concerns Assessment Noted Time PHQ-9 Depression Total Score: 0 07/06/20 21 4:06 PM PRODUCTION TESTER documented as of this encounter Care Teams Solar Energy Advisor Relationship Specialty Start Date End Date Servando Torre MD [address] [place] [address] [address] [place] [address] PCP - General FAMILY PRACTICE 07/17/22 documented as of this encounter
--- OUTSIDE RECORDS SUMMARY | 2024-07-12 19:33 | XMS_ITS | Encounter Summary ---
Author Organization [facility] Address [address] [place] [address] [place] [address] Care Team Providers Care Solar Energy Consultant And Designer Name Role Phone Servando Torre MD Primary Care Provider + [phone] Reason for Visit * Treatment/Therapy Plan Authorization (Routine) - Closed Specialty Diagnoses / Procedures Referred By Angel braswell Referred To Contact Diagnoses Chronic ulcerative colitis, unspecified complication ([facility]/HCC [facility]) Procedures VEDOLIZUMAB, INJECTION [facility] [address] [place] [address] Phone: tel: [facility] [address] [place] [address] Phone: tel: Referral ID Status Reason Start Date Expiration Date Visits Re quested Visits Authorized [id number] Closed 06/18/2022 3 3 Encounter Details Date Type Department Care Team (Latest Contact Info) Description 12/18/2022 3:40 PM CDT - 12/18/2022 3:41 PM CDT Hospital Encounter [facility] [address] [place] [address] Mariela Denton MD [address] [place] [address] Discharge Disposition: Home or Self Care (Routine [...] PM CDT documented as of this encounter Last Filed Vital Signs Vital Sign Reading Time Taken Comments Blood Pressure 123/63 12/18/2022 3:10 PM CDT Pulse 68 12/18/2022 3:10 PM CDT Temperature 37.7 ??C (99.8 ??F) 12/18/2022 2:00 PM CD T Respiratory Rate - - Oxygen Saturation 98% 12/18/2022 3:10 PM CDT Inhaled Oxygen Concentration - - [...] st Contact Info) Description 08/03/2024 2:00 PM LENS FABRICATING MACHINE TENDER Appointment [facility] [address] [place], [place] [id number] Josué Cook MD [address] [place] [address] documented as of this encounter Goals Goal Patient Goal Type Associated Problems Recent Progress Patient-Stated? Author HOME TO [facility] No Vannessa Blackwell RN documented as of this encounter Procedures Procedure Name Priority Date/Time Associated Diagnosis Comments HEPATIC FUNCTION PANEL Routine 12/18/2022 2:12 PM CDT Chronic ulcerative colitis, unspecified complication (CMS/HCC HHS/HCC) CBC W/DIFF AUTOMATED Routine 12/18/2022 2:12 PM CDT Chronic ulcerative colitis, unspecified complication (CMS/HCC HHS/HCC) documented in this encounter Results * HEPATIC FUNCTION PANEL (12/18/2022 2:12 PM CDT) TOTAL PROTEIN S/P/B 6.9 6.4 - 8.2 G/DL 12/18/2022 5:22 PM T [facility] ALBUMIN S/P/B 3.5 3.4 - 5.0 G/DL 12/18/2022 5:22 PM [facility] BILIRUBIN TOTAL S/P/B 0.2 0.2 - 1.2 MG/DL 12/18/2022 5:22 PM [facility] BILIRUBIN DIRECT S/P/B <0.1 0.0 - 0.20 MG/DL 12/18/2022 5:22 PM [facility] BILIRUBIN INDIRECT S/P/B 0.2 0.0 - 0.9 MG/DL 12/18/2022 5:22 PM [facility] ALKALINE PHOSPHATASE S/P/B 79 50 - 136 U/L 12/18/2022 5:22 PM [facility] AST 21 15 - 37 U/L 12/18/2022 5:22 PM [facility] ALT 22 14 - 55 U/L 12/18/2022 5:22 PM [facility] A/G RATIO 1.0 1.0 - 2.0 RATIO 12/18/2022 5:22 PM [facility] 12/18/2022 2:12 PM CDT us Mariela Denton MD LABORATORY Final Res ult [facility] [address] [place] [address], [place] [phone] * (ABNORMAL) CBC W/DIFF AUTOMATED (12/18/2022 2:12 PM CDT) Pathologist [facility] WBC 9.27 4.4 - 11.0 x10'3/uL 12/18/2022 5:09 PM CDT [facility] RBC 4.34(L) 4.50 - 5.10 x10'6/uL 12/18/2022 5:09 PM CDT [facility] HGB 12.7 12.3 - 15.3 G/DL 12/18/2022 5:09 PM CDT [facility] HCT 39.4 35.9 - 44.6 % 12/18/2022 5:09 PM CDT [facility] MCV 90.8 80.0 - 96.0 FL 12/18/2022 5:09 PM CDT [facility] MCH 29.3 25.3 - 30.9 PG 12/18/2022 5:09 PM CDT [facility] MCHC 32.2 31.0 - 34.1 G/DL 12/18/2022 5:09 PM CDT [facility] RDW 15.0 12.4 - 15.1 % 12/18/2022 5:09 PM CDT [facility] PLT 249 151 - 353 x10'3/uL 12/18/2022 5:09 PM CDT [facility] MPV 9.6 9.6 - 12.0 FL 12/18/2022 5:09 PM CDT [facility] RBC MORPHOLOGY NORMAL 12/18/2022 5:09 PM CDT [facility] PLT MORPH. NORMAL 12/18/2022 5:09 PM CDT [facility] WBC MORPHOLOGY NORMAL 12/18/2022 5:09 PM CDT [facility] LYMPHOCYTES % 26.5 15.8 - 45.0 % 12/18/2022 5:09 PM CDT [facility] NEUTROPHILS % 62.4 42.1 - 71.9 % 12/18/2022 5:09 PM CDT [facility] MONOCYTES % 7.8 5.7 - 12.5 % 12/18/2022 5:09 PM CDT [facility] EOSINOPHILS 2.3 0.0 - 5.6 % 12/18/2022 5:09 PM CDT [facility] BASOPHILS 0.5 0.0 - 1.3 % 12/18/2022 5:09 PM CDT [facility] ABS. NEUTROPHILS 5.78 1.40 - 6.00 x10'3/uL 12/18/2022 5:09 PM CDT [facility] IMMATURE GRANS % 0.5 0.0 - 0.5 % 12/18/2022 5:09 PM CDT [facility] ABS. LYMPHOCYTES 2.46 0.80 - 4.70 x10'3/uL 12/18/2022 5:09 PM T [facility] 12/18/2022 2:12 PM CDT us Mariela Denton MD LABORATORY Final Res ult [facility] [address] [place] [address], [place] [phone] documented in this encounter Visit Diagnoses Diagnosis Chronic ulcerative colitis, unspecified complication (CMS/HCC HHS/HCC)- Primary documented in this encounter Administered Medications Inactive Administered Medications - up to 3 most recent administrations Medication Order MAR Action Action Date Dose Rate Site acetaminophen (TYLENOL) tablet 650 mg 650 mg, Oral, Once as needed, Mild pain (Scale 1 - 3), 1 dose, Starting on Fri12/18/22 at 1357, Until Fri12/18/22 at 1403, Administer 30 mins prior to infusion Maximum dose of acetaminophen is 4000 mg from all sources in 24 hours.Indications:Chronic ulcerative colitis, unspecified complication (CMS/HCC HHS/HCC) Given 12/18/2022 2:03 PM CDT 650 mg diphenhydrAMINE (BENADRYL) capsule 25 mg 25 mg, Oral, Once as needed, premedicate 30 mins prior to infusion, 1 dose, Starting on Fri12/18/22 at 1357, Until Fri12/18/22 at 1404Indications:Chronic ulcerative colitis, unspecified complication (CMS/[facility] HHS/HCC) Given 12/18/2022 2:04 PM CDT 25 mg vedolizumab (ENTYVIO) 300 mg in sodium chloride 0.9 % 250 mL IVPB 300 mg, Intravenous, Administer over 30 Minutes, Once, 1 dose, On Fri12/18/22 at 1430, Initial treatment at week 0,2 and 6 weeks, then every 8 weeks for maintenance Provider Instruction: Therapy should not be continued after week 14 if no therapeutic benefit is seen. Do not administer IV push or bolus. Flush line with 30 mL NS after completion.Indications:Chronic ulcerative colitis, unspecified complication ([facility] HHS/HCC) New Bag 12/18/2022 2:33 PM CDT 300 mg 500 mL/hr documented in this encounter Active and Recently Administered Medications Times are shown in CDT. Scheduled Medication Order 12/16/2022 12/17/2022 12/18/2022 vedolizumab (ENTYVIO) 300 mg in sodium chloride 0.9 % 250 mL IVPB (COMPLETED) 300 mg, Intravenous, Administer over 30 Minutes, Once, 1 dose, On Fri12/18/22 at 1430, Initial treatment at week 0,2 and 6 weeks, then every 8 weeks for maintenance Provider Instruction: Therapy should not be continued after week 14 if no therapeutic benefit is seen. Do not administer IV push or bolus. Flush line with 30 mL NS after completion. 1433 (New Bag - Prov ider: Mayra Carter RN)1503 (Infusion Stop Time - Provider: Mayra Carter RN) PRN Medication Order 12/16/2022 12/17/2022 12/18/2022 acetaminophen (TYLENOL) tablet 650 mg (COMPLETED) 650 mg, Oral, Once as needed, Mild pain (Scale 1 - 3), 1 dose, Starting on Fri12/18/22 at 1357, Until Fri12/18/22 at 1403, Administer 30 mins prior to infusion Maximum dose of acetaminophen is 4000 mg from all sources in 24 hours. 1403 (Given - Provid er: Mayra Carter RN - Comment: pre-meds) diphenhydrAMINE (BENADRYL) capsule 25 mg (COMPLETED) 25 mg, Oral, Once as needed, premedicate 30 mins prior to infusion, 1 dose, Starting on Fri12/18/22 at 1357, Until Fri12/18/22 at 1404 1404 (Given - Provid er: Mayra Carter RN) documented in this encounter Additional Health Concerns Assessment Noted Time PHQ-9 Depression Total Score: 0 07/06/20 21 4:06 PM LENS FABRICATING MACHINE TENDER documented as of this encounter Care Teams Solar Energy Consultant And Designer Relationship Specialty Start Date End Date Servando Torre MD [address] [place] [address] [address] [place] [address] PCP - General FAMILY PRACTICE 07/17/22 documented as of this encounter
--- OUTSIDE RECORDS SUMMARY | 2024-07-12 19:33 | XMS_ITS | Encounter Summary ---
Author Organization [facility] Address [address] [facility] [place] [address] [place] [address] Care Team Providers Care Restaurant Team Member Name Role Phone Jared Abrams MD Primary Care Provider [phone] Reason for Visit * Reason Comments Follow Up On mesalamine also a zathioprine here for follow up states the new med isnt helping much * Consultation/Treatment (Routine) - Closed Specialty Diagnoses / Procedures Referred By Angel braswell Referred To Contact GASTROENTEROLOGY Diagnoses FU Procedures FOLLOW UP Jared Abrams MD [facility] [place] [address] Phone: tel: fax: Vladimir Parsons MD [address] [address] Phone: tel: fax: Referral ID Status Reason Start Date Expiration Date Visits Re quested Visits Authorized [id number] Closed 11/16/2020 07/06/2022 100 100 Encounter Details Date Type Department Care Team (Latest Contact Info) Description 04/19/2022 2:00 PM CDT Office Visit [facility] [address] [phone] Vladimir Parsons MD [address] [address] Follow Up (On mesalamine also azathioprine here for follow up states the new med isnt helping much) Social History Tobacco Use Types Packs/Day Years [...] suspected to have Coronavirus/COVID-19? No / Unsure 04/19/2022 1:51 PM CDT documented as of this encounter Last Filed Vital Signs Vital Sign Reading Time Taken Comments Blood Pressure 138/64 04/19/2022 2:44 PM CDT Pulse 76 04/19/2022 2:44 PM CDT Temperature 36.3 ??C (97.3 ??F) 04/19/2022 2:44 PM CD T Respiratory Rate - - Oxygen Saturation 96% 04/19/2022 2:44 PM CDT Inhaled Oxygen Concentration - - Weight 69.9 kg (154 lb) 04/19/2022 2:44 PM CDT Height 157.5 cm (5' 2 ) 04/19/2022 2:44 PM CDT Body Mass Index 28.17 04/19/2022 2:44 PM CDT documented in this encounter Functional Status * [...] Reagan RN Active documented in this encounter Progress Notes * Vladimir Parsons MD - 04/19/2022 2:00 PM CDT Images from the original note were not included. Gastroenterology Established Visit Reason for Visit: Follow Up (On mesalamine also azathioprine here for follow up states the new med isnt helping much) History of Present Illness: Not much improvement with diarrhea. Increased back pain and shoulder pain. Patient is currently on azathioprine 50 mg daily plus mesalamine. Medications: Current Outpatient Medications: ??? amLODIPine 5 MG tablet, Take 5 mg by mouth daily., Disp: , Rfl: ??? aspirin EC 81 MG tablet, Take 81 mg by mouth nightly. , Disp: , Rfl: ??? azaTHIOprine (IMURAN) 50 MG tablet, Take 1 tablet (50 mg total) by mouth daily for 60 days. Azathioprine 100 mg daily, Disp: 30 tablet, Rfl: 6 ??? diphenoxylate-atropine 2.5-0.025 MG tablet, Take 1 tablet by mouth 2 (two) times a day., Disp: , Rfl: ??? ferrous sulfate EC 324 (65 Fe) MG tablet, Take 1 tablet (324 mg total) by mouth daily with breakfast., Disp: 30 tablet, Rfl: 0 ??? mesalamine ER 0.375 g CAPSULE SR 24 HR 24 hr capsule, Take 2 capsules (750 mg total) by mouth 2(two) times daily., Disp: 360 capsule, Rfl: 3 ??? metFORMIN 500 MG tablet, Take 500 mg by mouth 2 (two) times daily with meals. , Disp: , Rfl: ??? metoprolol tartrate 50 MG tablet, Take by mouth 2 (two) times daily., Disp: , Rfl: ??? metroNIDAZOLE (FLAGYL) 500 MG tablet, Take 0.5 tablets (250 mg total) by mouth 3 (three) times daily for 7 days., Disp: 11 tablet, Rfl: 0 ??? multivitamin with minerals liquid, Take 15 mLs by mouth daily., Disp: , Rfl: ??? pantoprazole EC 40 MG tablet, Take 40 mg by mouth nightly. , Disp: , Rfl: ??? pravastatin 40 MG tablet, Take 40 mg by mouth nightly at bedtime., Disp: , Rfl: ??? Saccharomyces boulardii (PROBIOTIC) 250 MG Cap, , Disp: , Rfl: ??? vitamin B-12 500 MCG tablet, Take 1,000 mcg by mouth daily. Taking sublinguial, Disp: , Rfl: Allergies: No Known Allergies Medical History: Past Medical History: Diagnosis Date ??? Diabetes mellitus (CMS/HCC) ??? GERD (gastroesophageal reflux disease) ??? Hypercholesteremia ??? Hypertension ??? Ulcerative colitis (CMS/HCC) Surgical History: Past Surgical History: Procedure Laterality Date ??? COLONOSCOPY N/A 03/22/2020 colonoscopy with biopsies performed by Vladimir Parsons MD at [facility] OR ??? PARTIAL HIP REPLACEMENT Left ??? SIGMOIDOSCOPY N/A 10/05/2021 Sigmoidoscopy w/ Biopsy performed by Vladimir Parsons MD at [facility] OR ??? TUBAL LIGATION PE: Filed Vitals: 04/19/22 1444 BP: 138/64 Pulse: 76 Temp: 97.3 ??F (36.3 ??C) SpO2: 96% Weight: 69.9 kg (154 lb) Height: 5' 2 (1.575 m) General: In NAD, pleasant and appropriate HEENT: Anicteric Skin: Anicteric, no rashes Neuro: A&Ox3 Labs: Labs Reviewed @LAB@ Diagnoses/Impression: Active colitis. Increased gas pains. Increased flatus. 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 Recommendations and Plan: Discontinue mesalamine (Apriso) Increase azathioprine to 100 mg daily. Add Flagyl 250 3 times daily for 7 days for colitis. See me back in 3 months Risks/Benefits/Options: Patient presented with risks (can include but are not limited to: discomfort, missing lesions, allergic or adverse reaction to the sedation, perforation of the bowel which may require hospitaliztion and surgery, bleeding, infection, aspiration), benefits, and alternatives to the procedure(s) and they are in agreement to proceed as planned. VLADIMIR PARSONS MD 04/19/2022 Voice recognition software utilized documented in this encounter Plan of Treatment Upcoming Encounters Date Type Department Care Team (Late st Contact Info) Description 08/03/2024 2:00 PM SHINE WORKER Appointment [address] [address] Josué Cook MD [address] [address] documented as of this encounter Goals Goal Patient Goal Type Associated Problems Recent Progress Patient-Stated? Author [facility] General Vannessa Light, RN documented as of this encounter Visit Diagnoses Diagnosis Colitis- Primary Other and unspecified noninfectious gastroenteritis and colitis documented in this encounter Additional Health Concerns Assessment Noted Time PHQ-9 Depression Total Score: 0 07/06/20 21 4:06 PM SHINE WORKER documented as of this encounter Care Teams Restaurant Team Member Relationship Specialty Start Date End Date Jared Abrams MD PCP - General 08/28/11 07/16/22 documented as of this encounter
--- OUTSIDE RECORDS SUMMARY | 2024-07-12 19:33 | XMS_ITS | Encounter Summary ---
Author Organization [facility] Address [address] [facility] [place] [address] [place] [address] Care Team Providers Care Rocket Propellant Plant Supervisor Name Role Phone Jared Abrams MD Primary Care Provider [phone] Encounter Details Date Type Department Care Team (Late st Contact Info) Description 06/22/2022 Orders Only [facility] [address] [facility] [address] [place] [address] Alen Corbett, DO [address] [address] Social History Tobacco Use Types Packs/Day Years [...] st Contact Info) Description 08/03/2024 2:00 PM MOTOR AND GENERATOR ASSEMBLER Appointment [address] [address] Josué Cook MD [address] [address] documented as of this encounter Goals Goal Patient Goal Type Associated Problems Recent Progress Patient-Stated? Author [facility] General No Vannessa Blackwell RN documented as of this encounter Visit Diagnoses Not on filedocumented in this encounter Additional Health Concerns Assessment Noted Time PHQ-9 Depression Total Score: 0 07/06/20 21 4:06 PM MOTOR AND GENERATOR ASSEMBLER documented as of this encounter Care Teams Rocket Propellant Plant Supervisor Relationship Specialty Start Date End Date Jared Abrams MD PCP - General 08/28/11 07/16/22 documented as of this encounter
--- OUTSIDE RECORDS SUMMARY | 2024-07-12 19:33 | XMS_ITS | Encounter Summary ---
Author Organization [facility] Address [address] [facility] [place] [address] [place] [address] Care Team Providers Care Spray Crew Name Role Phone Servando Torre MD Primary Care Provider + [phone] Reason for Visit * Treatment/Therapy Plan Authorization (Routine) - Closed Specialty Diagnoses / Procedures Referred By Angel braswell Referred To Contact Diagnoses Chronic ulcerative colitis, unspecified complication ([facility]/HCC [facility]) Procedures VEDOLIZUMAB, INJECTION [facility] [address] [place] [address] Phone: tel: [facility] [address] [place] [address] Phone: tel: Referral ID Status Reason Start Date Expiration Date Visits Re quested Visits Authorized [id number] Closed 06/18/2022 3 3 Encounter Details Date Type Department Care Team (Latest Contact Info) Description 08/28/2022 1:41 PM BUNG SEWER - 08/28/2022 3:13 PM BUNG SEWER Hospital Encounter [facility] [address] [place] [address] Mariela Denton MD [address] [place] [address] Discharge Disposition: Home or Self Care (Routine [...] suspected to have Coronavirus/COVID-19? No / Unsure 08/28/2022 1:37 PM BUNG SEWER documented as of this encounter Last Filed Vital Signs Vital Sign Reading Time Taken Comments Blood Pressure 170/77 08/28/2022 3:00 PM BUNG SEWER Pulse 68 08/28/2022 3:00 PM BUNG SEWER Temperature 36.9 ??C (98.4 ??F) 08/28/2022 3:00 PM CS T Respiratory Rate 18 08/28/2022 2:00 PM BUNG SEWER Oxygen Saturation 99% 08/28/2022 3:00 PM BUNG SEWER Inhaled Oxygen Concentration - - Weight - [...] by mouth nightly. azaTHIOprine (IMURAN) 100 MG tabletIndications: Colitis Take 1 tablet (100 mg total) by mouth daily. 30 tablet 2 05/01/2022 diphenoxylate-atro pine 2.5-0.025 MG tablet Take 1 tablet by [...] 1,000 mcg by mouth daily. Taking sublinguial mesalamine ER 0.375 g CAPSULE SR 24 HR 24 hr capsuleIndications :Ulcerative pancolitis without complication (CMS/HCC HHS/HCC) Take 2 capsules (750 mg total) by mouth 2 (two) times daily. 360 capsule 3 10/05/2021 3 documented as of this encounter Plan of Treatment Upcoming Encounters Date Type Department Care Team (Late st Contact Info) Description 08/03/2024 2:00 PM BUNG SEWER Appointment [facility] [address] [place], [place] [id number] Josué Cook MD [address] [address] documented as of this encounter Goals Goal Patient Goal Type Associated Problems Recent Progress Patient-Stated? Author HOME TO [facility] Vannessa Light RN documented as of this encounter Visit Diagnoses Diagnosis Chronic ulcerative colitis, unspecified complication ([facility] HHS/HCC)- Primary documented in this encounter Administered Medications Inactive Administered Medications - up to 3 most recent administrations Medication Order MAR Action Action Date Dose Rate Site acetaminophen (TYLENOL) tablet 650 mg 650 mg, Oral, Once as needed, Mild pain (Scale 1 - 3), 1 dose, Starting on Fri08/28/22 at 1343, Until Fri08/28/22 at 1714, Administer 30 mins prior to infusion Maximum dose of acetaminophen is 4000 mg from all sources in 24 hours.Indications:Chronic ulcerative colitis, unspecified complication ([facility] HHS/HCC) diphenhydrAMINE (BENADRYL) capsule 25 mg 25 mg, Oral, Once as needed, premedicate 30 mins prior to infusion, 1 dose, Starting on Fri08/28/22 at 1343, Until Fri08/28/22 at 1714Indications:Chronic ulcerative colitis, unspecified complication ([facility] HHS/HCC) vedolizumab (ENTYVIO) 300 mg in sodium chloride 0.9 % 250 mL IVPB 300 mg, Intravenous, Administer over 30 Minutes, Once, 1 dose, On Fri08/28/22 at 1400, INDUCTION SCHEDULE - loading doses at 0 weeks, 2 weeks, and 6 weeks. Infuse over a minimum of 30 minutes. Do not administer IV push or bolus. Flush line with 30 mL NS after completion.Indications:Chronic ulcerative colitis, unspecified complication ([facility] HHS/HCC) New Bag 08/28/2022 2:07 PM BUNG SEWER 300 mg 500 mL/hr documented in this encounter Active and Recently Administered Medications Times are shown in BUNG SEWER. Scheduled Medication Order 08/26/2022 08/27/2022 08/28/2022 vedolizumab (ENTYVIO) 300 mg in sodium chloride 0.9 % 250 mL IVPB (COMPLETED) 300 mg, Intravenous, Administer over 30 Minutes, Once, 1 dose, On Fri08/28/22 at 1400, INDUCTION SCHEDULE - loading doses at 0 weeks, 2 weeks, and 6 weeks. Infuse over a minimum of 30 minutes. Do not administer IV push or bolus. Flush line with 30 mL NS after completion. 1407 (New Bag - Prov ider: Mayra Carter RN)1437 (Infusion Stop Time - Provider: Mayra Carter RN) PRN Medication Order 08/26/2022 08/27/2022 08/28/2022 acetaminophen (TYLENOL) tablet 650 mg 650 mg, Oral, Once as needed, Mild pain (Scale 1 - 3), 1 dose, Starting on Fri08/28/22 at 1343, Until Fri08/28/22 at 1714, Administer 30 mins prior to infusion Maximum dose of acetaminophen is 4000 mg from all sources in 24 hours. 1414 (Not Given - Pr ovider: Mayra Carter RN - Reason: Patient already took) diphenhydrAMINE (BENADRYL) capsule 25 mg 25 mg, Oral, Once as needed, premedicate 30 mins prior to infusion, 1 dose, Starting on Fri08/28/22 at 1343, Until Fri08/28/22 at 1714 1414 (Not Given - Pr ovider: Mayra Carter RN - Reason: Other - Comment: drives self) documented in this encounter Additional Health Concerns Assessment Noted Time PHQ-9 Depression Total Score: 0 07/06/20 4:06 PM BUNG SEWER documented as of this encounter Care Teams Spray Crew Relationship Specialty Start Date End Date Servando Torre MD [address] [facility] [address] [place] [address] PCP - General FAMILY PRACTICE 07/17/22 documented as of this encounter
--- OUTSIDE RECORDS SUMMARY | 2024-07-12 19:33 | XMS_ITS | Encounter Summary ---
Author Organization [facility] Address [address] [place] [address] [place] [address] Care Team Providers Care Research Pharmacist Name Role Phone Servando Torre MD Primary Care Provider + [phone] Reason for Visit * Treatment/Therapy Plan Authorization (Routine) - Closed Specialty Diagnoses / Procedures Referred By Angel braswell Referred To Contact Diagnoses Chronic ulcerative colitis, unspecified complication ([facility]/HCC [facility]) Procedures VEDOLIZUMAB, INJECTION [facility] [address] [place] [address] Phone: tel: [facility] [address] [place] [address] Phone: tel: Referral ID Status Reason Start Date Expiration Date Visits Re quested Visits Authorized [id number] Closed 06/18/2022 3 3 Encounter Details Date Type Department Care Team (Latest Contact Info) Description 07/31/2022 1:42 PM PLATE GLASS INSTALLER - 07/31/2022 4:09 PM [facility] Hospital Encounter [facility] [address] [place] [address] Mariela Denton MD [facility] [address] [place] [address] Discharge Disposition: Home or Self Care (Routine [...] suspected to have Coronavirus/COVID-19? No / Unsure 07/31/2022 1:38 PM PLATE GLASS INSTALLER documented as of this encounter Last Filed Vital Signs Vital Sign Reading Time Taken Comments Blood Pressure 138/55 07/31/2022 4:00 PM PLATE GLASS INSTALLER Pulse 77 07/31/2022 4:00 PM PLATE GLASS INSTALLER Temperature 36.8 ??C (98.3 ??F) 07/31/2022 2:38 PM CS T Respiratory Rate - - Oxygen Saturation 98% 07/31/2022 4:00 PM PLATE GLASS INSTALLER Inhaled Oxygen Concentration - - Weight - [...] st Contact Info) Description 08/03/2024 2:00 PM PLATE GLASS INSTALLER Appointment [facility] [address] [place], [place] [id number] Josué Cook MD [address] [facility] [address] [place] [address] documented as of this encounter Goals Goal Patient Goal Type Associated Problems Recent Progress Patient-Stated? Author HOME TO [facility] Vannessa Light RN documented as of this encounter Visit Diagnoses Diagnosis Chronic ulcerative colitis, unspecified complication ([facility] HHS/HCC)- Primary documented in this encounter Administered Medications Inactive Administered Medications - up to 3 most recent administrations Medication Order MAR Action Action Date Dose Rate Site acetaminophen (TYLENOL) tablet 650 mg 650 mg, Oral, Once as needed, Mild pain (Scale 1 - 3), 1 dose, Starting on Fri07/31/22 at 1425, Until Fri07/31/22 at 1809, Administer 30 mins prior to infusion Maximum dose of acetaminophen is 4000 mg from all sources in 24 hours.Indications:Chronic ulcerative colitis, unspecified complication ([facility] HHS/HCC) diphenhydrAMINE (BENADRYL) capsule 25 mg 25 mg, Oral, Once as needed, premedicate 30 mins prior to infusion, 1 dose, Starting on Fri07/31/22 at 1425, Until Fri07/31/22 at 1433Indications:Chronic ulcerative colitis, unspecified complication ([facility] HHS/HCC) Given 07/31/2022 2:33 PM PLATE GLASS INSTALLER 25 mg vedolizumab (ENTYVIO) 300 mg in sodium chloride 0.9 % 250 mL IVPB 300 mg, Intravenous, Administer over 30 Minutes, Once, 1 dose, On Fri07/31/22 at 1445, INDUCTION SCHEDULE - loading doses at 0 weeks, 2 weeks, and 6 weeks. Infuse over a minimum of 30 minutes. Do not administer IV push or bolus. Flush line with 30 mL NS after completion.Indications:Chronic ulcerative colitis, unspecified complication ([facility] HHS/HCC) New Bag 07/31/2022 3:08 PM PLATE GLASS INSTALLER 300 mg 500 mL/hr documented in this encounter Active and Recently Administered Medications Times are shown in PLATE GLASS INSTALLER. Scheduled Medication Order 07/29/2022 07/30/2022 07/31/2022 vedolizumab (ENTYVIO) 300 mg in sodium chloride 0.9 % 250 mL IVPB (COMPLETED) 300 mg, Intravenous, Administer over 30 Minutes, Once, 1 dose, On Fri07/31/22 at 1445, INDUCTION SCHEDULE - loading doses at 0 weeks, 2 weeks, and 6 weeks. Infuse over a minimum of 30 minutes. Do not administer IV push or bolus. Flush line with 30 mL NS after completion. 1508 (New Bag - Prov ider: Varsha Christie RN)1548 (Infusion Stop Time - Provider: Funmilayo Clemente RN) PRN Medication Order 07/29/2022 07/30/2022 07/31/2022 acetaminophen (TYLENOL) tablet 650 mg 650 mg, Oral, Once as needed, Mild pain (Scale 1 - 3), 1 dose, Starting on Fri07/31/22 at 1425, Until Fri07/31/22 at 1809, Administer 30 mins prior to infusion Maximum dose of acetaminophen is 4000 mg from all sources in 24 hours. 1444 (Not Given - Pr ovider: Varsha Christie RN - Reason: Patient already took - Comment: took at home at 1pm) diphenhydrAMINE (BENADRYL) capsule 25 mg (COMPLETED) 25 mg, Oral, Once as needed, premedicate 30 mins prior to infusion, 1 dose, Starting on Fri07/31/22 at 1425, Until Fri07/31/22 at 1433 1433 (Given - Provid er: Varsha Christie RN) documented in this encounter Additional Health Concerns Assessment Noted Time PHQ-9 Depression Total Score: 0 07/06/20 21 4:06 PM PLATE GLASS INSTALLER documented as of this encounter Care Teams Research Pharmacist Relationship Specialty Start Date End Date Servando Torre MD [address] [place] [address] [address] [place] [address] PCP - General FAMILY PRACTICE 07/17/22 documented as of this encounter
--- OUTSIDE RECORDS SUMMARY | 2024-07-12 19:33 | XMS_ITS | Encounter Summary ---
Author Organization [facility] Address [address] [facility] [place] [address] [place] [address] Care Team Providers Care Precision Lathe Operator Name Role Phone Jared Abrams MD Primary Care Provider [phone] Encounter Details Date Type Department Care Team (Latest Contact Info) Description 04/19/2022 Travel Social History Tobacco Use Types Packs/Day [...] st Contact Info) Description 08/03/2024 2:00 PM COMMUNITY DEVELOPMENT DIRECTOR Appointment [address] [address] Josué Cook MD [address] [address] documented as of this encounter Goals Goal Patient Goal Type Associated Problems Recent Progress Patient-Stated? Author HOME TO [facility] General No Vannessa Blackwell RN documented as of this encounter Visit Diagnoses Not on filedocumented in this encounter Additional Health Concerns Assessment Noted Time PHQ-9 Depression Total Score: 0 07/06/20 21 4:06 PM COMMUNITY DEVELOPMENT DIRECTOR documented as of this encounter Care Teams Precision Lathe Operator Relationship Specialty Start Date End Date Jared Abrams MD PCP - General 08/28/11 07/16/22 documented as of this encounter
--- OUTSIDE RECORDS SUMMARY | 2024-07-12 19:33 | XMS_ITS | Encounter Summary ---
Author Organization [facility] Address [address] [place] [address] [place] [address] Care Team Providers Care Senior Software Quality Engineer Name Role Phone Servando Torre MD Primary Care Provider [phone] Encounter Details Date Type Department Care Team (Latest Contact Info) Description 10/07/2023 Travel Social History Tobacco Use Types Packs/Day [...] st Contact Info) Description 08/03/2024 2:00 PM PSYCHOLOGICAL OPERATIONS OFFICER Appointment [facility] [id number] [place] [address] Josué Cook MD [address] [address] documented as of this encounter Goals Goal Patient Goal Type Associated Problems Recent Progress Patient-Stated? Author HOME TO [facility] Vannessa Light RN documented as of this encounter Visit Diagnoses Not on filedocumented in this encounter Additional Health Concerns Assessment Noted Time PHQ-9 Depression Total Score: 0 07/06/20 21 4:06 PM PSYCHOLOGICAL OPERATIONS OFFICER documented as of this encounter Care Teams Senior Software Quality Engineer Relationship Specialty Start Date End Date Servando Torre MD [address] [place] [address] [address] [place] [address] PCP - General FAMILY PRACTICE 07/17/22 documented as of this encounter
--- OUTSIDE RECORDS SUMMARY | 2024-07-12 19:33 | XMS_ITS | Encounter Summary ---
Author Organization [facility] Address [address] [facility] [place] [address] [place] [address] Care Team Providers Care Violin Teacher Name Role Phone Servando Torre MD Primary Care Provider [phone] Reason for Visit * Treatment/Therapy Plan Authorization (Routine) - Closed Specialty Diagnoses / Procedures Referred By Angel braswell Referred To Contact Diagnoses Chronic ulcerative colitis, unspecified complication ([facility]/HCC [facility]) Procedures VEDOLIZUMAB, INJECTION [facility] [address] [place] [address] Phone: tel: [facility] [address] [place] [address] Phone: tel: Referral ID Status Reason Start Date Expiration Date Visits Re quested Visits Authorized [id number] Closed 06/18/2022 3 3 Encounter Details Date Type Department Care Team (Latest Contact Info) Description 10/23/2022 2:08 PM CDT - 10/23/2022 4:00 PM CDT Hospital Encounter [facility] [address] [place] [address] Mariela Denton MD [address] [place] [address] Discharge Disposition: Home or Self Care (Routine [...] suspected to have Coronavirus/COVID-19? No / Unsure 10/23/2022 2:06 PM CDT documented as of this encounter Last Filed Vital Signs Vital Sign Reading Time Taken Comments Blood Pressure 140/63 10/23/2022 3:55 PM CDT Pulse 63 10/23/2022 3:55 PM CDT Temperature 37.2 ??C (98.9 ??F) 10/23/2022 2:30 PM CD T Respiratory Rate 18 10/23/2022 3:55 PM CDT Oxygen Saturation 94% 10/23/2022 3:55 PM CDT Inhaled Oxygen Concentration - - [...] Contact Info) Description 08/03/2024 2:00 PM PLATE FITTER Appointment [address] [address] Josué Cook MD [facility] [address] [place] [address] documented as of this encounter Goals Goal Patient Goal Type Associated Problems Recent Progress Patient-Stated? Author HOME TO [facility] No Rishi, Vannessa M, RN documented as of this encounter Procedures Procedure Name Priority Date/Time Associated Diagnosis Comments HEPATIC FUNCTION PANEL Routine 10/23/2022 2:45 PM CDT Chronic ulcerative colitis, unspecified complication (CMS/HCC HHS/HCC) CBC W/DIFF AUTOMATED Routine 10/23/2022 2:45 PM CDT Chronic ulcerative colitis, unspecified complication (CMS/HCC HHS/HCC) documented in this encounter Results * (ABNORMAL) HEPATIC FUNCTION PANEL (10/23/2022 2:45 PM CDT) TOTAL PROTEIN S/P/B 8.2 6.4 - 8.2 G/DL 10/23/2022 3:01 PM T [facility] ALBUMIN S/P/B 3.8 3.4 - 5.0 G/DL 10/23/2022 3:01 PM T [facility] BILIRUBIN TOTAL S/P/B 0.4 0.2 - 1.2 MG/DL 10/23/2022 3:01 PM [facility] BILIRUBIN DIRECT S/P/B 0.1 0.0 - 0.20 MG/DL 10/23/2022 3:01 PM [facility] BILIRUBIN INDIRECT S/P/B 0.3 0.0 - 0.9 MG/DL 10/23/2022 3:01 PM T [facility] ALKALINE PHOSPHATASE S/P/B 74 50 - 136 U/L 10/23/2022 3:01 PM [facility] AST 29 15 - 37 U/L 10/23/2022 3:01 PM T [facility] ALT 31 14 - 55 U/L 10/23/2022 3:01 PM [facility] A/G RATIO 0.9(L) 1.0 - 2.0 RATIO 10/23/2022 3:01 PM [facility] 10/23/2022 2:45 PM CDT us Mariela Denton MD LABORATORY Final Res ult [facility] [address] [place] [address], [place] [phone] * (ABNORMAL) CBC W/DIFF AUTOMATED (10/23/2022 2:45 PM CDT) WBC 7.90 4.4 - 11.0 x10'3/uL 10/23/2022 2:50 PM CDT [facility] RBC 4.81 4.50 - 5.10 x10'6/uL 10/23/2022 2:50 PM CDT [facility] HGB 14.2 12.3 - 15.3 G/DL 10/23/2022 2:50 PM CDT [facility] HCT 43.4 35.9 - 44.6 % 10/23/2022 2:50 PM CDT [facility] MCV 90.2 80.0 - 96.0 FL 10/23/2022 2:50 PM CDT [facility] MCH 29.5 25.3 - 30.9 PG 10/23/2022 2:50 PM CDT [facility] MCHC 32.7 31.0 - 34.1 G/DL 10/23/2022 2:50 PM CDT [facility] RDW 14.4 12.4 - 15.1 % 10/23/2022 2:50 PM CDT [facility] PLT 251 151 - 353 x10'3/uL 10/23/2022 2:50 PM CDT [facility] MPV 8.8(L) 9.6 - 12.0 FL 10/23/2022 2:50 PM CDT [facility] RBC MORPHOLOGY NORMAL 10/23/2022 2:50 PM CDT [facility] PLT MORPH. NORMAL 10/23/2022 2:50 PM CDT [facility] WBC MORPHOLOGY NORMAL 10/23/2022 2:50 PM CDT [facility] LYMPHOCYTES % 31.1 15.8 - 45.0 % 10/23/2022 2:50 PM CDT [facility] NEUTROPHILS % 57.7 42.1 - 71.9 % 10/23/2022 2:50 PM CDT [facility] MONOCYTES % 7.3 5.7 - 12.5 % 10/23/2022 2:50 PM CDT [facility] EOSINOPHILS 2.9 0.0 - 5.6 % 10/23/2022 2:50 PM CDT [facility] BASOPHILS 0.6 0.0 - 1.3 % 10/23/2022 2:50 PM CDT [facility] ABS. NEUTROPHILS 4.55 1.40 - 6.00 x10'3/uL 10/23/2022 2:50 PM CDT [facility] IMMATURE GRANS % 0.4 0.0 - 0.5 % 10/23/2022 2:50 PM CDT [facility] ABS. LYMPHOCYTES 2.46 0.80 - 4.70 x10'3/uL 10/23/2022 2:50 PM CDT [facility] 10/23/2022 2:45 PM CDT us Mariela Denton MD LABORATORY Final Res ult [facility] [address] [place] [address], [place] [phone] documented in this encounter Visit Diagnoses Diagnosis Chronic ulcerative colitis, unspecified complication ([facility]/HCC)- Primary documented in this encounter Administered Medications Inactive Administered Medications - up to 3 most recent administrations Medication Order MAR Action Action Date Dose Rate Site acetaminophen (TYLENOL) tablet 650 mg 650 mg, Oral, Once as needed, Mild pain (Scale 1 - 3), 1 dose, Starting on Fri10/23/22 at 1414, Until Fri10/23/22 at 1804, Maximum dose of acetaminophen is 4000 mg from all sources in 24 hours.Indications:Chronic ulcerative colitis, unspecified complication ([facility] HHS/HCC) acetaminophen (TYLENOL) tablet 650 mg 650 mg, Oral, Once as needed, Mild pain (Scale 1 - 3), 1 dose, Starting on Fri10/23/22 at 1414, Until Fri10/23/22 at 1446, Administer 30 mins prior to infusion Maximum dose of acetaminophen is 4000 mg from all sources in 24 hours.Indications:Chronic ulcerative colitis, unspecified complication ([facility] HHS/[facility]) Given 10/23/2022 2:46 PM CDT 650 mg diphenhydrAMINE (BENADRYL) capsule 25 mg 25 mg, Oral, Once as needed, premedicate 30 mins prior to infusion, 1 dose, Starting on Fri10/23/22 at 1414, Until Fri10/23/22 at 1446Indications:Chronic ulcerative colitis, unspecified complication ([facility] HHS/HCC) Given 10/23/2022 2:46 PM CDT 25 mg diphenhydrAMINE (BENADRYL) injection 25 mg 25 mg, Intravenous, Once as needed, Severe hypersensitivity reaction (dyspnea, bronchospasm, urticaria, flushing, rash, and increased heart rate), Starting on Fri10/23/22 at 1414, Until Fri10/23/22 at 1804, For IV administration, give no faster than 25 mg/min. For severe hypersensitivity reaction (dyspnea, bronchospasm, urticaria, flushing, rash, and increased heart rate).Indications:Chronic ulcerative colitis, unspecified complication ([facility] HHS/HCC) EPINEPHrine PF (ADRENALIN) 1 mg/mL injection 0.3 mg 0.3 mg, Intramuscular, Every 5 min PRN, Other, Severe hypersensitivity reaction (dyspnea, bronchospasm, urticaria, flushing, rash, and increased heart rate), 3 doses, Starting on Fri10/23/22 at 1414, Until Fri10/23/22 at 1804, Severe hypersensitivity reaction (dyspnea, bronchospasm, urticaria, flushing, rash, and increased heart rate)Indications:Chronic ulcerative colitis, unspecified complication ([facility] HHS/[facility]) vedolizumab (ENTYVIO) 300 mg in sodium chloride 0.9 % 250 mL IVPB 300 mg, Intravenous, Administer over 30 Minutes, Once, 1 dose, On Fri10/23/22 at 1445, Initial treatment at week 0,2 and 6 weeks, then every 8 weeks for maintenance Provider Instruction: Therapy should not be continued after week 14 if no therapeutic benefit is seen. Do not administer IV push or bolus. Flush line with 30 mL NS after completion.Indications:Chronic ulcerative colitis, unspecified complication ([facility] HHS/HCC) New Bag 10/23/2022 2:48 PM CDT 300 mg 500 mL/hr documented in this encounter Active and Recently Administered Medications Times are shown in CDT. Scheduled Medication Order 10/21/2022 10/22/2022 10/23/2022 vedolizumab (ENTYVIO) 300 mg in sodium chloride 0.9 % 250 mL IVPB (COMPLETED) 300 mg, Intravenous, Administer over 30 Minutes, Once, 1 dose, On Fri10/23/22 at 1445, Initial treatment at week 0,2 and 6 weeks, then every 8 weeks for maintenance Provider Instruction: Therapy should not be continued after week 14 if no therapeutic benefit is seen. Do not administer IV push or bolus. Flush line with 30 mL NS after completion. 1448 (New Bag - Prov ider: Mayra Carter, RN)1520 (Infusion Stop Time - Provider: Mayra Carter, RN) PRN Medication Order 10/21/2022 10/22/2022 10/23/2022 acetaminophen (TYLENOL) tablet 650 mg 650 mg, Oral, Once as needed, Mild pain (Scale 1 - 3), 1 dose, Starting on Fri10/23/22 at 1414, Until Fri10/23/22 at 1804, Maximum dose of acetaminophen is 4000 mg from all sources in 24 hours. acetaminophen (TYLENOL) tablet 650 mg (COMPLETED) 650 mg, Oral, Once as needed, Mild pain (Scale 1 - 3), 1 dose, Starting on Fri10/23/22 at 1414, Until Fri10/23/22 at 1446, Administer 30 mins prior to infusion Maximum dose of acetaminophen is 4000 mg from all sources in 24 hours. 1446 (Given - Provid er: Mayra Carter RN - Comment: pre med) diphenhydrAMINE (BENADRYL) capsule 25 mg (COMPLETED) 25 mg, Oral, Once as needed, premedicate 30 mins prior to infusion, 1 dose, Starting on Fri10/23/22 at 1414, Until Fri10/23/22 at 1446 1446 (Given - Provid er: Mayra Carter RN - Comment: pre-med) diphenhydrAMINE (BENADRYL) injection 25 mg 25 mg, Intravenous, Once as needed, Severe hypersensitivity reaction (dyspnea, bronchospasm, urticaria, flushing, rash, and increased heart rate), Starting on Fri10/23/22 at 1414, Until Fri10/23/22 at 1804, For IV administration, give no faster than 25 mg/min. For severe hypersensitivity reaction (dyspnea, bronchospasm, urticaria, flushing, rash, and increased heart rate). EPINEPHrine PF (ADRENALIN) 1 mg/mL injection 0.3 mg 0.3 mg, Intramuscular, Every 5 min PRN, Other, Severe hypersensitivity reaction (dyspnea, bronchospasm, urticaria, flushing, rash, and increased heart rate), 3 doses, Starting on Fri10/23/22 at 1414, Until Fri10/23/22 at 1804, Severe hypersensitivity reaction (dyspnea, bronchospasm, urticaria, flushing, rash, and increased heart rate) documented in this encounter Additional Health Concerns Assessment Noted Time PHQ-9 Depression Total Score: 0 07/06/20 4:06 PM PLATE FITTER documented as of this encounter Care Teams Violin Teacher Relationship Specialty Start Date End Date Servando Torre MD [address] [place] [address] [address] [place] [address] PCP - General FAMILY PRACTICE 07/17/22 documented as of this encounter
--- OUTSIDE RECORDS SUMMARY | 2024-07-12 19:33 | XMS_ITS | Encounter Summary ---
Author Organization [facility] Address [address] [facility] [place] [address] [place] [address] Care Team Providers Care Continuous Yarn Dyeing Machine Operator Name Role Phone Servando Torre MD Primary Care Provider Encounter Details Date Type Department Care Team (Latest Contact Info) Description 08/28/2022 Travel Social History Tobacco Use Types Packs/Day [...] Coronavirus/COVID-19? No / Unsure 08/28/2022 1:37 PM VEST TAILOR documented as of this encounter Functional Status [...] Status No 03/23/2020 1:13 PM CDT Hannah Reaagn RN Active documented as of this encounter [...] st Contact Info) Description 08/03/2024 2:00 PM VEST TAILOR Appointment [address] [address] Josué Cook MD [address] [address] documented as of this encounter Goals Goal Patient Goal Type Associated Problems Recent Progress Patient-Stated? Author HOME TO [facility]IV[facility] Vannessa Light RN documented as of this encounter Visit Diagnoses Not on filedocumented in this encounter Additional Health Concerns Assessment Noted Time PHQ-9 Depression Total Score: 0 07/06/20 21 4:06 PM VEST TAILOR documented as of this encounter Care Teams Continuous Yarn Dyeing Machine Operator Relationship Specialty Start Date End Date Servando Torre MD [address] [place] [address] [address] [place] [address] PCP - General FAMILY PRACTICE 07/17/22 documented as of this encounter
--- OUTSIDE RECORDS SUMMARY | 2024-07-12 19:33 | XMS_ITS | Encounter Summary ---
Author Organization [facility] Address [address] [facility] [place] [address] [place] [address] Care Team Providers Care Survey Engineer Name Role Phone Jared Abrams MD Primary Care Provider [phone] Servando Torre MD Primary Care Provider [phone] Encounter Details Date Type Department Care Team (Late st Contact Info) Description 06/18/2022 Therapy Plan [facility] [address] [place] [address] Mariela Denton MD [facility] [address] [facility] [address] [place] [address] Social History Tobacco Use Types Packs/Day Years [...] Date Author Status No 03/23/2020 1:13 PM INDRAT Hannah Reagan RN Active documented in this encounter Plan of Treatment Upcoming Encounters Date Type Department Care Team (Late st [facility] Info) Description 08/03/2024 2:00 PM SADDLE STITCH OPERATOR Appointment [facility] [id number] [place] [address] Josué Cook MD [facility] [address] documented as of this encounter Goals Goal Patient Goal Type Associated Problems Recent Progress Patient-Stated? Author HOME TO [facility]IV[facility] General No Vannessa Blackwell RN documented as of this encounter Visit Diagnoses Diagnosis Chronic ulcerative colitis, unspecified complication (CMS/HCC [facility])- Primary documented in this encounter Additional Health Concerns Assessment Noted Time PHQ-9 Depression Total Score: 0 07/06/20 21 4:06 PM SADDLE STITCH OPERATOR documented as of this encounter Care Teams Survey Engineer Relationship Specialty Start Date End Date Jared Abrams MD PCP - General 08/28/11 07/16/22 Servando Torre MD [address] [facility] [address] [place] [address] PCP - General FAMILY PRACTICE 07/17/22 documented as of this encounter
--- OUTSIDE RECORDS SUMMARY | 2024-07-12 19:33 | XMS_ITS | Encounter Summary ---
Author Organization [facility] Address [address] [facility] [place] [address] [place] [address] Care Team Providers Care Felt Machine Mechanic Name Role Phone Servando Torre MD Primary Care Provider Encounter Details Date Type Department Care Team (Late st Contact Info) Description 07/19/2022 Orders Only [facility] [address] [place] [address] [address] [place] [address] Alen Corbett, DO [address] [address] Social History Tobacco Use Types Packs/Day Years [...] Coronavirus/COVID-19? No / Unsure 07/17/2022 1:45 PM ORDERLY documented as of this encounter Functional Status [...] st Contact Info) Description 08/03/2024 2:00 PM ORDERLY Appointment [address] [address] Josué Cook MD [address] [facility] 8 [place] [address] documented as of this encounter Goals Goal Patient Goal Type Associated Problems Recent Progress Patient-Stated? Author HOME TO [facility]ENT [facility]IV[facility] General No Vannessa Blackwell RN documented as of this encounter Visit Diagnoses Not on filedocumented in this encounter Additional Health Concerns Assessment Noted Time PHQ-9 Depression Total Score: 0 07/06/20 21 4:06 PM ORDERLY documented as of this encounter Care Teams Felt Machine Mechanic Relationship Specialty Start Date End Date Servando Torre MD [address] [facility] [address] [place] [address] PCP - General FAMILY PRACTICE 07/17/22 documented as of this encounter
--- OUTSIDE RECORDS SUMMARY | 2024-07-12 19:33 | XMS_ITS | Encounter Summary ---
Author Organization [facility] Address [address] [place] [address] [place] [address] Care Team Providers Care Client Experience Consultant Name Role Phone Servando Torre MD Primary Care Provider [phone] Reason for Visit * Treatment/Therapy Plan Authorization (Routine) - Authorized Specialty Diagnoses / Procedures Referred By Angel braswell Referred To Contact Diagnoses Chronic ulcerative colitis, unspecified complication ([facility]/HCC HHS/HCC) Abnormal liver function tests Procedures VEDOLIZUMAB, INJECTION [facility] [address] [place] [address] Phone: tel: [facility] [address] [place] [address] Phone: tel: Referral ID Status Reason Start Date Expiration Date Visits Requested Visits Authorized [id number] Authorized Medication 05/01/2023 07/27/2024 99 99 Encounter Details Date Type Department Care Team (Latest Contact Info) Description 05/28/2024 1:43 PM CDT - 05/28/2024 2:55 PM CDT Hospital Encounter [facility] [address] [place] [address] Josué Cook MD [address] [facility] 8 [place] [address] Discharge Disposition: Home or Self Care (Routine [...] Taking sublinguial documented as of this encounter Progress Notes * Varsha Christie RN - 05/28/2024 2:55 PM CDT Pt here for Entyvio, tolerated well. No complaints documented in this encounter Plan of Treatment Upcoming Encounters Date Type Department Care Team (Late st Contact Info) Description 08/03/2024 2:00 PM STRUCTURAL ANALYSIS ENGINEER Appointment [facility] [address] [place], [place] [id number] Josué Cook MD [address] [address] documented as of this encounter Goals Goal Patient Goal Type Associated Problems Recent Progress Patient-Stated? Author HOME TO [facility]DEP[facility]ENT [facility] Vannessa Light RN documented as of this encounter Procedures Procedure Name Priority Date/Time Associated Diagnosis Comments TBGOLD-TUBERCULOSIS TST CELL MEDIATED IMMUNITY Routine 05/28/2024 [...] Abnormal liver function tests C-REACTIVE PROTEIN Routine 05/28/2024 2: 00 PM CDT Chronic ulcerative colitis, unspecified complication (CMS/HCC HHS/HCC) Abnormal liver function tests CBC W/DIFF AUTOMATED Routine 05/28/2024 2:00 PM CDT Chronic ulcerative colitis, unspecified complication (CMS/HCC HHS/HCC) Abnormal liver function tests documented in this encounter Results * C-REACTIVE PROTEIN (05/28/2024 2:00 PM CDT) C-REACTIVE PROTEIN <0.29 <0.29 mg/dL 05/28/2024 8:37 PM CDT [facility] 05/28/2024 2:00 PM CDT us Anas K Gremida MD LABORATORY Final Result [facility] [address] [place] [address], * (ABNORMAL) CBC W/DIFF AUTOMATED (05/28/2024 2:00 PM CDT) WBC 10.79 4.4 - 11.0 x10'3/uL 05/28/2024 2:34 PM CDT [facility] RBC 4.65 4.50 - 5.10 x10'6/uL 05/28/2024 2:34 PM CDT [facility] HGB 13.6 12.3 - 15.3 G/DL 05/28/2024 2:34 PM CDT [facility] HCT 42.1 35.9 - 44.6 % 05/28/2024 2:34 PM CDT [facility] MCV 90.5 80.0 - 96.0 FL 05/28/2024 2:34 PM CDT [facility] MCH 29.2 25.3 - 30.9 PG 05/28/2024 2:34 PM CDT [facility] MCHC 32.3 31.0 - 34.1 G/DL 05/28/2024 2:34 PM CDT [facility] RDW 13.2 12.4 - 15.1 % 05/28/2024 2:34 PM CDT [facility] PLT 288 151 - 353 x10'3/uL 05/28/2024 2:34 PM CDT [facility] MPV 9.7 9.6 - 12.0 FL 05/28/2024 2:34 PM CDT [facility] RBC MORPHOLOGY NORMAL 05/28/2024 2:34 PM CDT [facility] PLT MORPH. NORMAL 05/28/2024 2:34 PM CDT [facility] WBC MORPHOLOGY NORMAL 05/28/2024 2:34 PM CDT [facility] LYMPHOCYTES % 19.5 15.8 - 45.0 % 05/28/2024 2:34 PM CDT [facility] NEUTROPHILS % 70.3 42.1 - 71.9 % 05/28/2024 2:34 PM CDT [facility] MONOCYTES % 7.3 5.7 - 12.5 % 05/28/2024 2:34 PM CDT [facility] EOSINOPHILS 1.9 0.0 - 5.6 % 05/28/2024 2:34 PM CDT [facility] BASOPHILS 0.6 0.0 - 1.3 % 05/28/2024 2:34 PM CDT [facility] ABS. NEUTROPHILS 7.59(H) 1.40 - 6.00 x10'3/uL 05/28/2024 2:34 PM CDT [facility] IMMATURE GRANS % 0.4 0.0 - 0.5 % 05/28/2024 2:34 PM CDT [facility] ABS. LYMPHOCYTES 2.10 0.80 - 4.70 x10'3/uL 05/28/2024 2:34 PM CDT [facility] 05/28/2024 2:00 PM CDT us Josué Cook MD LABORATORY Final Result [facility] [address] [place] [address], [place] [phone] * (ABNORMAL) COMPREHENSIVE METABOLIC PANEL (05/28/2024 2:00 PM CDT) Pathologist [facility] GLUCOSE 145(H) 70 - 99 MG/DL 05/28/2024 2:53 PM T [facility] BUN 16 7 - 18 MG/DL 05/28/2024 2:53 PM T [facility] CREATININE S/P/B 1.12(H) 0.55 - 1.02 MG/DL 05/28/2024 2:53 PM T [facility] SODIUM S/P/B 139 136 - 145 MMOL/L 05/28/2024 2:53 PM T [facility] POTASSIUM S/P/B 4.0 3.5 - 5.1 MMOL/L 05/28/2024 2:53 PM T [facility] CHLORIDE S/P/B 102 100 - 108 MMOL/L 05/28/2024 2:53 PM T [facility] CO2 28.6 21 - 32 MMOL/L 05/28/2024 2:53 PM T [facility] CALCIUM S/P/B 9.7 8.5 - 10.1 MG/DL 05/28/2024 2:53 PM T [facility] BILIRUBIN TOTAL S/P/B 0.2 0.2 - 1.2 MG/DL 05/28/2024 2:53 PM T [facility] TOTAL PROTEIN S/P/B 6.9 6.4 - 8.2 G/DL 05/28/2024 2:53 PM T [facility] ALBUMIN S/P/B 3.4 3.4 - 5.0 G/DL 05/28/2024 2:53 PM T [facility] AST 19 15 - 37 U/L 05/28/2024 2:53 PM T [facility] ALT 19 14 - 55 U/L 05/28/2024 2:53 PM T [facility] ALKALINE PHOSPHATASE S/P/B 117 50 - 136 U/L 05/28/2024 2:53 PM CDT [facility] ANION GAP 8.4 5 - 15 MMOL/L 05/28/2024 2:53 PM CDT [facility] BUN CREATININE RATIO 14.3 6 - 26 05/28/2024 2:53 PM CDT [facility] A/G RATIO 1.0 1.0 - 2.0 RATIO 05/28/2024 2:53 PM CDT [facility] GFR ESTIMATE 49(L) >90 ML/MIN/1.7 3 M2 05/28/2024 2:53 PM CDT [facility] Comment: NOTE: eGFR is not calculated for patients <18 years of age. This is an estimated GFR calculation using the new CKD EPI creatinine equation without race and so does not require a correction factor for race. This estimated GFR should not be used for calculating drug doses. 05/28/2024 2:00 PM CDT us Josué Cook MD LABORATORY Final Result [facility] [address] [place] [address], [place] [phone] * HEPATITIS B CORE ANTIBODY (05/28/2024 2:00 PM CDT) HEP B CORE TOTAL AB NON-REACTI VE NON-REACTI VE 05/28/2024 9:04 PM CDT [facility] 05/28/2024 2:00 PM CDT us Josué Cook MD LABORATORY Final Result [facility] [address] [place] [address], [place] [phone] * HEPATITIS B SURFACE ANTIBODY (05/28/2024 2:00 PM CDT) HEP B SURFACE AB NON-REACTI VE 05/28/2024 11:01 PM CDT [facility] 05/28/2024 2:00 PM CDT us Josué Cook MD LABORATORY Final Result [facility] [address] [place] [address], [place] [phone] * HEPATITIS B SURFACE AG, EIA (05/28/2024 2:00 PM CDT) HEPATITIS B SURFACE AG NON-REACTI VE NON-REACTI VE 05/28/2024 8:34 PM CDT [facility] 05/28/2024 2:00 PM CDT us Josué Cook MD LABORATORY Final Result Performing Organization Address City/[facility]/ZIP Co de Phone Number [facility] [address] [place] [address], [place] [phone] * QUANTIFERON TBGOLD TUBERCULOSIS TEST (05/28/2024 2:00 PM CDT) TB1 AG MINUS NIL 0.01 IU/ML 05/31/20 24 1:56 PM STRUCTURAL ANALYSIS ENGINEER [facility] TB2 AG MINUS NIL 0.04 IU/ML 05/31/20 24 1:56 PM STRUCTURAL ANALYSIS ENGINEER [facility] TB QUANTIFERON NEGATIVE NEGATIVE 05/31/2024 1:56 PM STRUCTURAL ANALYSIS ENGINEER [facility] TB INTERPRETATION M. tuberculosis infection unlikely but cannot be excluded especially when any illness is consistent with TB disease and/or likelihood of progression to disease is increased. ?? In patients at high risk to M. tuberculosis infection, a second test should be considered. 05/31/2024 1:56 PM STRUCTURAL ANALYSIS ENGINEER [facility] 05/28/2024 2:00 PM CDT Josué Cook MD LABORATORY Final Result [facility] [address] [place] [address], [id number] documented in this encounter Visit Diagnoses Diagnosis Abnormal liver function tests- Primary Other abnormal blood chemistry Chronic ulcerative colitis, unspecified complication (CMS/HCC HHS/HCC) documented in this encounter Administered Medications Inactive Administered Medications - up to 3 most recent administrations Medication Order MAR Action Action Date Dose Rate Site acetaminophen (TYLENOL) tablet 650 mg 650 mg, Oral, Once as needed, Other, pre med, 1 dose, Starting on Fri05/28/24 at 1344, Until Fri05/28/24 at 1702, Maximum dose of acetaminophen is 4000 mg from all sources in 24 hours.Indications:Chronic ulcerative colitis, unspecified complication (CMS/HCC HHS/HCC),Abnormal liver function tests diphenhydrAMINE (BENADRYL) capsule 25 mg 25 mg, Oral, Once as needed, Other, premed, 1 dose, Starting on Fri05/28/24 at 1344, Until Fri05/28/24 at 1702Indications:Chronic ulcerative colitis, unspecified complication (CMS/HCC HHS/HCC),Abnormal liver function tests diphenhydrAMINE (BENADRYL) injection 25 mg 25 mg, Intravenous, Once as needed, Severe hypersensitivity reaction (dyspnea, bronchospasm, urticaria, flushing, rash, and increased heart rate), Starting on Fri05/28/24 at 1344, Until Fri05/28/24 at 1702, For IV administration, give no faster than 25 mg/min. For severe hypersensitivity reaction (dyspnea, bronchospasm, urticaria, flushing, rash, and increased heart rate).Indications:Chronic ulcerative colitis, unspecified complication (CMS/HCC HHS/HCC),Abnormal liver function tests diphenhydrAMINE (BENADRYL) injection 50 mg 50 mg, Intravenous, Every 15 min PRN, Other, moderate/ severe reaction, 2 doses, Starting on Fri05/28/24 at 1344, Until Fri05/28/24 at 1702, For IV administration, give no faster than 25 mg/min.Indications:Chronic ulcerative colitis, unspecified complication (CMS/HCC HHS/HCC),Abnormal liver function tests EPINEPHrine PF (ADRENALIN) 1 mg/mL injection 0.3 mg 0.3 mg, Intramuscular, Every 5 min PRN, Other, Severe hypersensitivity reaction (dyspnea, bronchospasm, urticaria, flushing, rash, and increased heart rate), 3 doses, Starting on Fri05/28/24 at 1344, Until Fri05/28/24 at 1702, See original order - May repeat x 1 prn if hypotension does not resolve within 15 mins Severe hypersensitivity reaction (dyspnea, bronchospasm, urticaria, flushing, rash, and increased heart rate)Indications:Chronic ulcerative colitis, unspecified complication (CMS/HCC HHS/HCC),Abnormal liver function tests famotidine (PF) (PEPCID) injection 20 mg 20 mg, Intravenous, Every 15 min PRN, For mild / moderate or severe reactions, 2 doses, Starting on Fri05/28/24 at 1344, Until Fri05/28/24 at 1702, IV Push over 2 minutesIndications:Chronic ulcerative colitis, unspecified complication (CMS/HCC HHS/HCC),Abnormal liver function tests methylPREDNISolone sodium succinate (SOLU-Medrol) injection 125 mg 125 mg, Intravenous, Every 15 min PRN, For moderate/severe reaction, 2 doses, Starting on Fri05/28/24 at 1344, Until Fri05/28/24 at 1702, If ordered IV, administer into a vein over 3-15 minutes. Doses >= 2 mg/kg or 250mg should be given by infusion, unless the benefits of IV injection outweigh the risks (life-threatening shock)Indications:Chronic ulcerative colitis, unspecified complication (CMS/HCC HHS/HCC),Abnormal liver function tests vedolizumab (ENTYVIO) 300 mg in sodium chloride 0.9 % 250 mL IVPB 300 mg, Intravenous, Administer over 30 Minutes, Once, 1 dose, On Fri05/28/24 at 1430, Provider Instruction: Therapy should not be continued after week 14 if no therapeutic benefit is seen. Do not administer IV push or bolus. Flush line with 30 mL NS after completion.Indications:Chronic ulcerative colitis, unspecified complication (CMS/HCC HHS/HCC),Abnormal liver function tests New Bag 05/28/2024 2:15 PM CDT 300 mg 500 mL/hr documented in this encounter Active and Recently Administered Medications Times are shown in CDT. Scheduled Medication Order 05/26/2024 05/27/2024 05/28/2024 vedolizumab (ENTYVIO) 300 mg in sodium chloride 0.9 % 250 mL IVPB (COMPLETED) 300 mg, Intravenous, Administer over 30 Minutes, Once, 1 dose, On Fri05/28/24 at 1430, Provider Instruction: Therapy should not be continued after week 14 if no therapeutic benefit is seen. Do not administer IV push or bolus. Flush line with 30 mL NS after completion. 1415 (New Bag - Prov ider: Varsha Christie RN)1445 (Infusion Stop Time - Provider: Varsha Christie RN) PRN Medication Order 05/26/2024 05/27/2024 05/28/2024 acetaminophen (TYLENOL) tablet 650 mg 650 mg, Oral, Once as needed, Other, pre med, 1 dose, Starting on Fri05/28/24 at 1344, Until Fri05/28/24 at 1702, Maximum dose of acetaminophen is 4000 mg from all sources in 24 hours. 1408 (Not Given - Pr ovider: Varsha Christie RN - Reason: Patient already took - Comment: premed taken at 1310) diphenhydrAMINE (BENADRYL) capsule 25 mg 25 mg, Oral, Once as needed, Other, premed, 1 dose, Starting on Fri05/28/24 at 1344, Until Fri05/28/24 at 1702 1408 (Not Given - Pr ovider: Varsha Christie RN - Reason: Patient already took - Comment: took at 1310) diphenhydrAMINE (BENADRYL) injection 25 mg 25 mg, Intravenous, Once as needed, Severe hypersensitivity reaction (dyspnea, bronchospasm, urticaria, flushing, rash, and increased heart rate), Starting on Fri05/28/24 at 1344, Until Fri05/28/24 at 1702, For IV administration, give no faster than 25 mg/min. For severe hypersensitivity reaction (dyspnea, bronchospasm, urticaria, flushing, rash, and increased heart rate). diphenhydrAMINE (BENADRYL) injection 50 mg 50 mg, Intravenous, Every 15 min PRN, Other, moderate/ severe reaction, 2 doses, Starting on Fri05/28/24 at 1344, Until Fri05/28/24 at 1702, For IV administration, give no faster than 25 mg/min. EPINEPHrine PF (ADRENALIN) 1 mg/mL injection 0.3 mg 0.3 mg, Intramuscular, Every 5 min PRN, Other, Severe hypersensitivity reaction (dyspnea, bronchospasm, urticaria, flushing, rash, and increased heart rate), 3 doses, Starting on Fri05/28/24 at 1344, Until Fri05/28/24 at 1702, See original order - May repeat x 1 prn if hypotension does not resolve within 15 mins Severe hypersensitivity reaction (dyspnea, bronchospasm, urticaria, flushing, rash, and increased heart rate) famotidine (PF) (PEPCID) injection 20 mg 20 mg, Intravenous, Every 15 min PRN, For mild / moderate or severe reactions, 2 doses, Starting on Fri05/28/24 at 1344, Until Fri05/28/24 at 1702, IV Push over 2 minutes methylPREDNISolone sodium succinate (SOLU-Medrol) injection 125 mg 125 mg, Intravenous, Every 15 min PRN, For moderate/severe reaction, 2 doses, Starting on Fri05/28/24 at 1344, Until Fri05/28/24 at 1702, If ordered IV, administer into a vein over 3-15 minutes. Doses >= 2 mg/kg or 250mg should be given by infusion, unless the benefits of IV injection outweigh the risks (life-threatening shock) documented in this encounter Additional Health Concerns Assessment Noted Time PHQ-9 Depression Total Score: 0 07/06/20 21 4:06 PM STRUCTURAL ANALYSIS ENGINEER documented as of this encounter Care Teams Client Experience Consultant Relationship Specialty Start Date End Date Servando Torre MD [address] [place] [address] [address] [place] [address] PCP - General FAMILY PRACTICE 07/17/22 documented as of this encounter
--- OUTSIDE RECORDS SUMMARY | 2024-07-12 19:33 | XMS_ITS | Encounter Summary ---
Author Organization [facility] Address [address] [facility] [place] [address] [place] [address] Care Team Providers Care Senior Sql Server Dba Name Role Phone Servando Torre MD Primary Care Provider Encounter Details Date Type Department Care Team (Latest Contact Info) Description 08/11/2023 Travel Social History Tobacco Use Types Packs/Day [...] st Contact Info) Description 08/03/2024 2:00 PM CRISIS INTERVENTION COUNSELOR Appointment [facility] [id number] [place] [address] Josué Cook MD [address] [address] documented as of this encounter Goals Goal Patient Goal Type Associated Problems Recent Progress Patient-Stated? Author HOME TO [facility] Vannessa Light RN documented as of this encounter Visit Diagnoses Not on filedocumented in this encounter Additional Health Concerns Assessment Noted Time PHQ-9 Depression Total Score: 0 07/06/20 21 4:06 PM CRISIS INTERVENTION COUNSELOR documented as of this encounter Care Teams Senior Sql Server Dba Relationship Specialty Start Date End Date Servando Torre MD [address] [place] [address] [address] [place] [address] PCP - General FAMILY PRACTICE 07/17/22 documented as of this encounter
--- OUTSIDE RECORDS SUMMARY | 2024-07-12 19:33 | XMS_ITS | Encounter Summary ---
Author Organization [facility] Address [address] [facility] [place] [address] [place] [address] Care Team Providers Care Retail Event And Sales Assistant Name Role Phone Servando Torre MD Primary Care Provider [phone] Reason for Visit * Treatment/Therapy Plan Authorization (Routine) - Authorized Specialty Diagnoses / Procedures Referred By Angel braswell Referred To Contact Diagnoses Chronic ulcerative colitis, unspecified complication ([facility]/HCC HHS/HCC) Abnormal liver function tests Procedures VEDOLIZUMAB, INJECTION [facility] [address] [place] [address] Phone: tel: [facility] [address] [place] [address] Phone: tel: Referral ID Status Reason Start Date Expiration Date Visits Requested Visits Authorized [id number] Authorized Medication 05/01/2023 07/27/2024 99 99 Encounter Details Date Type Department Care Team (Latest Contact Info) Description 12/11/2023 1:51 PM CDT - 12/11/2023 2:58 PM CDT Hospital Encounter [facility] [address] [place] [address] Josué Cook MD [address] [facility] [address] [place] [address] Discharge Disposition: Home or Self Care (Routine [...] Sign Reading Time Taken Comments Blood Pressure 148/65 12/11/2023 2:55 PM CDT Pulse 58 12/11/2023 2:55 PM CDT Temperature 37.1 ??C (98.7 ??F) 12/11/2023 2:10 PM CD T Respiratory Rate 16 12/11/2023 2:55 PM CDT Oxygen Saturation 96% 12/11/2023 2:55 PM CDT Inhaled Oxygen Concentration - - [...] st Contact Info) Description 08/03/2024 2:00 PM DBA DEVELOPER Appointment [address] [address] Josué Cook MD [address] [facility] [address] [place] [address] documented as of this encounter Goals Goal Patient Goal Type Associated Problems Recent Progress Patient-Stated? Author HOME TO [facility] General No Vannessa Blackwell RN documented as of this encounter Procedures Procedure Name Priority Date/Time Associated Diagnosis Comments COMPREHENSIVE METABOLIC PANEL Routine 12/11/2023 1:56 PM CDT Chronic ulcerative colitis, unspecified complication (CMS/HCC HHS/HCC) Abnormal liver function tests C-REACTIVE PROTEIN Routine 12/11/2023 1: 56 PM CDT Chronic ulcerative colitis, unspecified complication (CMS/HCC HHS/HCC) Abnormal liver function tests CBC W/DIFF AUTOMATED Routine 12/11/2023 1:56 PM CDT Chronic ulcerative colitis, unspecified complication (CMS/HCC HHS/HCC) Abnormal liver function tests documented in this encounter Results * C-REACTIVE PROTEIN (12/11/2023 1:56 PM CDT) C-REACTIVE PROTEIN <0.29 <0.29 mg/dL 12/11/2023 7:54 PM CDT [facility] 12/11/2023 1:56 PM CDT Josué Cook MD LABORATORY Final Result [facility] [address] [place] [id number], [place] [phone] * (ABNORMAL) CBC W/DIFF AUTOMATED (12/11/2023 1:56 PM CDT) Pathologist [facility] WBC 8.77 4.4 - 11.0 x10'3/uL 12/11/2023 2:32 PM CDT [facility] RBC 4.29(L) 4.50 - 5.10 x10'6/uL 12/11/2023 2:32 PM CDT [facility] HGB 13.2 12.3 - 15.3 G/DL 12/11/2023 2:32 PM CDT [facility] HCT 40.2 35.9 - 44.6 % 12/11/2023 2:32 PM CDT [facility] MCV 93.7 80.0 - 96.0 FL 12/11/2023 2:32 PM CDT [facility] MCH 30.8 25.3 - 30.9 PG 12/11/2023 2:32 PM CDT [facility] MCHC 32.8 31.0 - 34.1 G/DL 12/11/2023 2:32 PM CDT [facility] RDW 13.5 12.4 - 15.1 % 12/11/2023 2:32 PM CDT [facility] PLT 237 151 - 353 x10'3/uL 12/11/2023 2:32 PM CDT [facility] MPV 9.2(L) 9.6 - 12.0 FL 12/11/2023 2:32 PM CDT [facility] RBC MORPHOLOGY NORMAL 12/11/2023 2:32 PM CDT [facility] PLT MORPH. NORMAL 12/11/2023 2:32 PM T [facility] WBC MORPHOLOGY NORMAL 12/11/2023 2:32 PM CDT [facility] LYMPHOCYTES % 22.3 15.8 - 45.0 % 12/11/2023 2:32 PM T [facility] NEUTROPHILS % 63.6 42.1 - 71.9 % 12/11/2023 2:32 PM CDT [facility] MONOCYTES % 9.6 5.7 - 12.5 % 12/11/2023 2:32 PM CDT [facility] EOSINOPHILS 3.2 0.0 - 5.6 % 12/11/2023 2:32 PM CDT [facility] BASOPHILS 0.7 0.0 - 1.3 % 12/11/2023 2:32 PM CDT [facility] ABS. NEUTROPHILS 5.58 1.40 - 6.00 x10'3/uL 12/11/2023 2:32 PM CDT [facility] IMMATURE GRANS % 0.6(H) 0.0 - 0.5 % 12/11/2023 2:32 PM CDT [facility] ABS. LYMPHOCYTES 1.96 0.80 - 4.70 x10'3/uL 12/11/2023 2:32 PM CDT [facility] 12/11/2023 1:56 PM CDT us Josué Cook MD LABORATORY Final Result [facility] [address] [place] [address], * (ABNORMAL) COMPREHENSIVE METABOLIC PANEL (12/11/2023 1:56 PM CDT) GLUCOSE 121(H) 70 - 99 MG/DL 12/11/2023 2:43 PM CDT [facility] BUN 19(H) 7 - 18 MG/DL 12/11/2023 2:43 PM CDT [facility] CREATININE S/P/B 1.36(H) 0.55 - 1.02 MG/DL 12/11/2023 2:43 PM CDT [facility] SODIUM S/P/B 137 136 - 145 MMOL/L 12/11/2023 2:43 PM CDT [facility] POTASSIUM S/P/B 3.8 3.5 - 5.1 MMOL/L 12/11/2023 2:43 PM CDT [facility] CHLORIDE S/P/B 102 100 - 108 MMOL/L 12/11/2023 2:43 PM CDT [facility] CO2 30.9 21 - 32 MMOL/L 12/11/2023 2:43 PM CDT [facility] CALCIUM S/P/B 8.9 8.5 - 10.1 MG/DL 12/11/2023 2:43 PM [facility] BILIRUBIN TOTAL S/P/B 0.2 0.2 - 1.2 MG/DL 12/11/2023 2:43 PM [facility] TOTAL PROTEIN S/P/B 6.2(L) 6.4 - 8.2 G/DL 12/11/2023 2:43 PM [facility] ALBUMIN S/P/B 3.2(L) 3.4 - 5.0 G/DL 12/11/2023 2:43 PM [facility] AST 7(L) 15 - 37 U/L 12/11/2023 2:43 PM [facility] ALT 17 14 - 55 U/L 12/11/2023 2:43 PM [facility] ALKALINE PHOSPHATASE S/P/B 98 50 - 136 U/L 12/11/2023 2:43 PM [facility] ANION GAP 4.1(L) 5 - 15 MMOL/L 12/11/2023 2:43 PM [facility] BUN CREATININE RATIO 14.0 6 - 26 12/11/2023 2:43 PM [facility] A/G RATIO 1.1 1.0 - 2.0 RATIO 12/11/2023 2:43 PM [facility] GFR ESTIMATE 39(L) >90 ML/MIN/1.7 3 M2 12/11/2023 2:43 PM [facility] Comment: NOTE: eGFR is not calculated for patients <18 years of age. This is an estimated GFR calculation using the new CKD EPI creatinine equation without race and so does not require a correction factor for race. This estimated GFR should not be used for calculating drug doses. 12/11/2023 1:56 PM CDT Josué Cook MD LABORATORY Final Result [facility] [address] [place] [address], [place] [phone] documented in this encounter Visit Diagnoses Diagnosis Chronic ulcerative colitis, unspecified complication (CMS/HCC HHS/HCC)- Primary Abnormal liver function tests Other abnormal blood chemistry documented in this encounter Administered Medications Inactive Administered Medications - up to 3 most recent administrations Medication Order MAR Action Action Date Dose Rate Site acetaminophen (TYLENOL) tablet 500 mg 500 mg, Oral, As needed, Other, for reaction, Starting on Afua 12/11/23 at 1355, Until Afua 12/11/23 at 1659, Maximum dose of acetaminophen is 4000 mg from all sources in 24 hours.Indications:Chronic ulcerative colitis, unspecified complication (CMS/HCC HHS/HCC),Abnormal liver function tests acetaminophen (TYLENOL) tablet 650 mg 650 mg, Oral, Once as needed, Other, pre med, 1 dose, Starting on Afua 12/11/23 at 1355, Until Afua 12/11/23 at 1659, Maximum dose of acetaminophen is 4000 mg from all sources in 24 hours.Indications:Chronic ulcerative colitis, unspecified complication (CMS/HCC HHS/HCC),Abnormal liver function tests diphenhydrAMINE (BENADRYL) capsule 25 mg 25 mg, Oral, Once as needed, Other, premed, 1 dose, Starting on Afua 12/11/23 at 1355, Until Afua 12/11/23 at 1659Indications:Chronic ulcerative colitis, unspecified complication (CMS/HCC HHS/HCC),Abnormal liver function tests diphenhydrAMINE (BENADRYL) injection 25 mg 25 mg, Intravenous, Once as needed, Severe hypersensitivity reaction (dyspnea, bronchospasm, urticaria, flushing, rash, and increased heart rate), Starting on Afua 12/11/23 at 1355, Until Afua 12/11/23 at 1659, For IV administration, give no faster than 25 mg/min. For severe hypersensitivity reaction (dyspnea, bronchospasm, urticaria, flushing, rash, and increased heart rate).Indications:Chronic ulcerative colitis, unspecified complication (CMS/HCC HHS/HCC),Abnormal liver function tests EPINEPHrine PF (ADRENALIN) 1 mg/mL injection 0.3 mg 0.3 mg, Intramuscular, Every 5 min PRN, Other, Severe hypersensitivity reaction (dyspnea, bronchospasm, urticaria, flushing, rash, and increased heart rate), 3 doses, Starting on Afua 12/11/23 at 1355, Until Afua 12/11/23 at 1659, Severe hypersensitivity reaction (dyspnea, bronchospasm, urticaria, flushing, rash, and increased heart rate)Indications:Chronic ulcerative colitis, unspecified complication (CMS/HCC HHS/HCC),Abnormal liver function tests hydrocortisone sodium succinate (Solu-CORTEF) injection 100 mg 100 mg, Intravenous, Once as needed, Severe hypersensitivity reaction (dyspnea, bronchospasm, urticaria, flushing, rash, and increased heart rate), Starting on Afua 12/11/23 at 1355, Until Afua 12/11/23 at 1659, Administer over 1-2 minutes. For severe hypersensitivity reaction (dyspnea, bronchospasm, urticaria, flushing, rash, and increased heart rate).Indications:Chronic ulcerative colitis, unspecified complication (CMS/HCC HHS/HCC),Abnormal liver function tests vedolizumab (ENTYVIO) 300 mg in sodium chloride 0.9 % 250 mL IVPB 300 mg, Intravenous, Administer over 30 Minutes, Once, 1 dose, On Afua 12/11/23 at 1430, Provider Instruction: Therapy should not be continued after week 14 if no therapeutic benefit is seen. Do not administer IV push or bolus. Flush line with 30 mL NS after completion.Indications:Chronic ulcerative colitis, unspecified complication (CMS/HCC HHS/HCC),Abnormal liver function tests New Bag 12/11/2023 2:15 PM CDT 300 mg 500 mL/hr documented in this encounter Active and Recently Administered Medications Times are shown in CDT. Scheduled Medication Order 12/09/2023 12/10/2023 12/11/2023 vedolizumab (ENTYVIO) 300 mg in sodium chloride 0.9 % 250 mL IVPB (COMPLETED) 300 mg, Intravenous, Administer over 30 Minutes, Once, 1 dose, On Afua 12/11/23 at 1430, Provider Instruction: Therapy should not be continued after week 14 if no therapeutic benefit is seen. Do not administer IV push or bolus. Flush line with 30 mL NS after completion. 1415 (New Bag - Prov ider: Mayra Carter RN)1450 (Infusion Stop Time - Provider: Mayra Carter RN) PRN Medication Order 12/09/2023 12/10/2023 12/11/2023 acetaminophen (TYLENOL) tablet 500 mg 500 mg, Oral, As needed, Other, for reaction, Starting on Afua 12/11/23 at 1355, Until Afua 12/11/23 at 1659, Maximum dose of acetaminophen is 4000 mg from all sources in 24 hours. acetaminophen (TYLENOL) tablet 650 mg 650 mg, Oral, Once as needed, Other, pre med, 1 dose, Starting on Afua 12/11/23 at 1355, Until Afua 12/11/23 at 1659, Maximum dose of acetaminophen is 4000 mg from all sources in 24 hours. 1420 (Not Given - Pr ovider: Mayra Carter RN - Reason: Patient already took - Comment: at home @1:15) diphenhydrAMINE (BENADRYL) capsule 25 mg 25 mg, Oral, Once as needed, Other, premed, 1 dose, Starting on Afua 12/11/23 at 1355, Until Afua 12/11/23 at 1659 1420 (Not Given - Pr ovider: Mayra Carter RN - Reason: Patient already took - Comment: at home 1:15p) diphenhydrAMINE (BENADRYL) injection 25 mg 25 mg, Intravenous, Once as needed, Severe hypersensitivity reaction (dyspnea, bronchospasm, urticaria, flushing, rash, and increased heart rate), Starting on Afua 12/11/23 at 1355, Until Afua 12/11/23 at 1659, For IV administration, give no faster than 25 mg/min. For severe hypersensitivity reaction (dyspnea, bronchospasm, urticaria, flushing, rash, and increased heart rate). EPINEPHrine PF (ADRENALIN) 1 mg/mL injection 0.3 mg 0.3 mg, Intramuscular, Every 5 min PRN, Other, Severe hypersensitivity reaction (dyspnea, bronchospasm, urticaria, flushing, rash, and increased heart rate), 3 doses, Starting on Afua 12/11/23 at 1355, Until Afua 12/11/23 at 1659, Severe hypersensitivity reaction (dyspnea, bronchospasm, urticaria, flushing, rash, and increased heart rate) hydrocortisone sodium succinate (Solu-CORTEF) injection 100 mg 100 mg, Intravenous, Once as needed, Severe hypersensitivity reaction (dyspnea, bronchospasm, urticaria, flushing, rash, and increased heart rate), Starting on Afua 12/11/23 at 1355, Until Afua 12/11/23 at 1659, Administer over 1-2 minutes. For severe hypersensitivity reaction (dyspnea, bronchospasm, urticaria, flushing, rash, and increased heart rate). documented in this encounter Additional Health Concerns Assessment Noted Time PHQ-9 Depression Total Score: 0 07/06/20 21 4:06 PM DBA DEVELOPER documented as of this encounter Care Teams Retail Event And Sales Assistant Relationship Specialty Start Date End Date Servando Torre MD [address] [facility] [address] [place] [address] PCP - General FAMILY PRACTICE 07/17/22 documented as of this encounter
--- OUTSIDE RECORDS SUMMARY | 2024-07-12 19:33 | XMS_ITS | Encounter Summary ---
Author Organization [facility] Address [address] [facility] [place] [address] [place] [address] Care Team Providers Care Senior Hris Analyst Name Role Phone Servando Torre MD Primary Care Provider Encounter Details Date Type Department Care Team (Latest Contact Info) Description 02/12/2023 Travel Social History Tobacco Use Types Packs/Day [...] st Contact Info) Description 08/03/2024 2:00 PM OUTREACH PROFESSIONAL Appointment [facility] [id number] [place] [address] Josué Cook MD [address] [address] documented as of this encounter Goals Goal Patient Goal Type Associated Problems Recent Progress Patient-Stated? Author HOME TO [facility] Vannessa Light RN documented as of this encounter Visit Diagnoses Not on filedocumented in this encounter Additional Health Concerns Assessment Noted Time PHQ-9 Depression Total Score: 0 07/06/20 21 4:06 PM OUTREACH PROFESSIONAL documented as of this encounter Care Teams Senior Hris Analyst Relationship Specialty Start Date End Date Servando Torre MD [address] [place] [address] [address] [place] [address] PCP - General FAMILY PRACTICE 07/17/22 documented as of this encounter
--- OUTSIDE RECORDS SUMMARY | 2024-07-12 19:33 | XMS_ITS | Encounter Summary ---
Author Organization [facility] Address [address] [place] [address] [place] [address] Care Team Providers Care Riveting Machine Operator Automatic Name Role Phone Servando Torre MD Primary Care Provider Encounter Details Date Type Department Care Team (Latest Contact Info) Description 10/23/2022 Travel Social History Tobacco Use Types Packs/Day [...] st Contact Info) Description 08/03/2024 2:00 PM ATOMIC FUEL ASSEMBLER Appointment [address] [address] Josué Cook MD [address] [address] documented as of this encounter Goals Goal Patient Goal Type Associated Problems Recent Progress Patient-Stated? Author HOME TO [facility]IV[facility] No Vannessa Blackwell RN documented as of this encounter Visit Diagnoses Not on filedocumented in this encounter Additional Health Concerns Assessment Noted Time PHQ-9 Depression Total Score: 0 07/06/20 21 4:06 PM ATOMIC FUEL ASSEMBLER documented as of this encounter Care Teams Riveting Machine Operator Automatic Relationship Specialty Start Date End Date Servando Torre MD [address] [place] [address] [address] [place] [address] PCP - General FAMILY PRACTICE 07/17/22 documented as of this encounter
--- OUTSIDE RECORDS SUMMARY | 2024-07-12 19:33 | XMS_ITS | Encounter Summary ---
Author Organization [facility] Address [address] [facility] [place] [address] [place] [address] Care Team Providers Care Speech Lang Path Therapist Name Role Phone Jared Abrams MD Primary Care Provider [phone] Encounter Details Date Type Department Care Team (Latest Contact Info) Description 01/17/2022 Travel Social History Tobacco Use Types Packs/Day [...] please move on to questions 3-9 0 01/11/2022 Comments No Sex and Gender Information Value Date Recorded Sex Assigned at Not on file Legal Sex Female 4:50 PM CDT Gender Identity Not on file Sexual Orientation Not on file COVID-19 Exposure Response Date Recorded In the last 10 days, have yo u been in contact with someone who was confirmed or suspected to have Coronavirus/COVID-19? No / Unsure 01/17/2022 9:48 AM CDT documented as of this encounter Functional [...] st Contact Info) Description 08/03/2024 2:00 PM GLOBAL CLINICAL LEADER Appointment [address] [address] Josué Cook MD [address] [address] documented as of this encounter Goals Goal Patient Goal Type Associated Problems Recent Progress Patient-Stated? Author HOME TO [facility] No Vannessa Blackwell RN documented as of this encounter Visit Diagnoses Not on filedocumented in this encounter Additional Health Concerns Assessment Noted Time PHQ-9 Depression Total Score: 0 07/06/20 21 4:06 PM GLOBAL CLINICAL LEADER documented as of this encounter Care Teams Speech Lang Path Therapist Relationship Specialty Start Date End Date Jared Abrams MD PCP - General 08/28/11 07/16/22 documented as of this encounter
--- OUTSIDE RECORDS SUMMARY | 2024-07-12 19:33 | XMS_ITS | Encounter Summary ---
Author Organization [facility] Address [address] [facility] [place] [address] [place] [address] Care Team Providers Care On Call Pharmacy Technician Name Role Phone Servando Torre MD Primary Care Provider Encounter Details Date Type Department Care Team (Latest Contact Info) Description 12/11/2023 Travel Social History Tobacco Use Types Packs/Day [...] st Contact Info) Description 08/03/2024 2:00 PM PRESIDENT + PUBLISHER Appointment [facility] [id number] [place] [address] Josué Cook MD [address] [address] documented as of this encounter Goals Goal Patient Goal Type Associated Problems Recent Progress Patient-Stated? Author HOME TO [facility] Vannessa Light RN documented as of this encounter Visit Diagnoses Not on filedocumented in this encounter Additional Health Concerns Assessment Noted Time PHQ-9 Depression Total Score: 0 07/06/20 21 4:06 PM PRESIDENT + PUBLISHER documented as of this encounter Care Teams On Call Pharmacy Technician Relationship Specialty Start Date End Date Servando Torre MD [address] [place] [address] [address] [place] [address] PCP - General FAMILY PRACTICE 07/17/22 documented as of this encounter
--- OUTSIDE RECORDS SUMMARY | 2024-07-12 19:33 | XMS_ITS | Encounter Summary ---
Author Organization [facility] Address [address] [facility] [place] [address] [place] [address] Care Team Providers Care Improvement Engineer Name Role Phone Servando Torre MD Primary Care Provider Encounter Details Date Type Department Care Team (Latest Contact Info) Description 07/17/2022 Travel Social History Tobacco Use Types Packs/Day [...] Coronavirus/COVID-19? No / Unsure 07/17/2022 1:45 PM ACCOUNTS PAYABLE ADMINISTRATOR documented as of this encounter Functional Status [...] st Contact Info) Description 08/03/2024 2:00 PM ACCOUNTS PAYABLE ADMINISTRATOR Appointment [address] [address] Josué Cook MD [address] [address] documented as of this encounter Goals Goal Patient Goal Type Associated Problems Recent Progress Patient-Stated? Author HOME TO [facility]IV[facility] Vannessa Light RN documented as of this encounter Visit Diagnoses Not on filedocumented in this encounter Additional Health Concerns Assessment Noted Time PHQ-9 Depression Total Score: 0 07/06/20 21 4:06 PM ACCOUNTS PAYABLE ADMINISTRATOR documented as of this encounter Care Teams Improvement Engineer Relationship Specialty Start Date End Date Servando Torre MD [address] [place] [address] [address] [place] [address] PCP - General FAMILY PRACTICE 07/17/22 documented as of this encounter
--- OUTSIDE RECORDS SUMMARY | 2024-07-12 19:33 | XMS_ITS | Encounter Summary ---
Author Organization [facility] Address [address] [facility] [place] [address] [place] [address] Care Team Providers Care Brand Sales Consultant Name Role Phone Servando Torre MD Primary Care Provider [phone] Encounter Details Date Type Department Care Team (Latest Contact Info) Description 06/10/2023 Travel Social History Tobacco Use Types Packs/Day [...] st Contact Info) Description 08/03/2024 2:00 PM INFORMATION SYSTEMS SECURITY ANALYST Appointment [facility] [phone] [place] [address] Josué Cook MD [address] [address] documented as of this encounter Goals Goal Patient Goal Type Associated Problems Recent Progress Patient-Stated? Author HOME TO [facility] Vannessa Light RN documented as of this encounter Visit Diagnoses Not on filedocumented in this encounter Additional Health Concerns Assessment Noted Time PHQ-9 Depression Total Score: 0 07/06/20 21 4:06 PM INFORMATION SYSTEMS SECURITY ANALYST documented as of this encounter Care Teams Brand Sales Consultant Relationship Specialty Start Date End Date Servando Torre MD [address] [place] [address] [address] [place] [address] PCP - General FAMILY PRACTICE 07/17/22 documented as of this encounter
--- OUTSIDE RECORDS SUMMARY | 2024-07-12 19:33 | XMS_ITS | Encounter Summary ---
Author Organization [facility] Address [address] [facility] [place] [address] [place] [address] Care Team Providers Care Machine Adjuster Leader Case Trim Name Role Phone Servando Torre MD Primary Care Provider [phone] Reason for Visit * Treatment/Therapy Plan Authorization (Routine) - Authorized Specialty Diagnoses / Procedures Referred By Angel braswell Referred To Contact Diagnoses Chronic ulcerative colitis, unspecified complication ([facility]/HCC HHS/HCC) Abnormal liver function tests Procedures VEDOLIZUMAB, INJECTION [facility] [address] [place] [address] Phone: tel: [facility] [address] [place] [address] Phone: tel: Referral ID Status Reason Start Date Expiration Date Visits Requested Visits Authorized [id number] Authorized Medication 05/01/2023 07/27/2024 99 99 Encounter Details Date Type Department Care Team (Latest Contact Info) Description 06/10/2023 1:35 PM OIL SPOT WASHER - 06/10/2023 2:55 PM OIL SPOT WASHER Hospital Encounter [facility] [address] [place] [address] Josué Cook MD [address] [facility] [address] [place] [address] Discharge Disposition: Home or Self Care (Routine [...] Sign Reading Time Taken Comments Blood Pressure 162/78 06/10/2023 1:45 PM OIL SPOT WASHER Pulse - - Temperature - - Respiratory Rate - - Oxygen Saturation 96% 06/10/2023 2:12 PM OIL SPOT WASHER Inhaled Oxygen Concentration - - Weight - [...] Gallagher RN Active documented in this encounter Medications [...] Progress Notes * Varsha Christie RN - 06/10/2023 4:02 PM CST Pt here for Entyvio and bloodwork, tolerated w/o issues , monitored for 30 mins post infusion SPOT WASHER documented in this encounter Plan of Treatment Upcoming Encounters Date Type Department Care Team (Late st Contact Info) Description 08/03/2024 2:00 PM OIL SPOT WASHER Appointment [facility] [id number] [place] [address] [id number] Josué Cook MD [address] [address] documented as of this encounter Goals Goal Patient Goal Type Associated Problems Recent Progress Patient-Stated? Author HOME TO [facility] Vannessa Light RN documented as of this encounter Procedures Procedure Name Priority Date/Time Associated Diagnosis Comments HEPATITIS E ANTIBODY IGG Routine 06/10/2023 2:30 PM OIL SPOT WASHER Abnormal liver function tests Chronic ulcerative colitis, unspecified complication (CMS/HCC HHS/HCC) HEPATITIS B POST-VACCINE ANTIBODY Routine 06/10/2023 2:30 PM OIL SPOT WASHER Abnormal liver function tests Chronic ulcerative colitis, unspecified complication (CMS/HCC HHS/HCC) TBGOLD-TUBERCULOSIS TST CELL MEDIATED IMMUNITY Routine 06/10/2023 2:30 PM OIL SPOT WASHER Abnormal liver function tests Chronic ulcerative colitis, unspecified complication (CMS/HCC HHS/HCC) PROMETHEUS THIOPURINE METABOLITES Routine 06/10/2023 2:30 PM OIL SPOT WASHER Abnormal liver function tests Chronic ulcerative colitis, unspecified complication (CMS/HCC HHS/HCC) COMPREHENSIVE METABOLIC PANEL Routine 06/10/2023 2:30 PM OIL SPOT WASHER Abnormal liver function tests Chronic ulcerative colitis, unspecified complication (CMS/HCC HHS/HCC) HEPATITIS B SURFACE AG, EIA Routine 06/10/2023 2:30 PM OIL SPOT WASHER Abnormal liver function tests Chronic ulcerative colitis, unspecified complication (CMS/HCC HHS/HCC) HEPATITIS B CORE AB IGM Routine 06/10/2023 2:30 PM OIL SPOT WASHER Abnormal liver function tests Chronic ulcerative colitis, unspecified complication (CMS/HCC HHS/HCC) C-REACTIVE PROTEIN Routine 06/10/2023 2: 30 PM OIL SPOT WASHER Abnormal liver function tests Chronic ulcerative colitis, unspecified complication (CMS/HCC HHS/HCC) CBC W/DIFF AUTOMATED Routine 06/10/2023 2:30 PM OIL SPOT WASHER Abnormal liver function tests Chronic ulcerative colitis, unspecified complication (CMS/HCC HHS/HCC) documented in this encounter Results * C-REACTIVE PROTEIN (06/10/2023 2:30 PM OIL SPOT WASHER) C-REACTIVE PROTEIN <0.29 <0.29 mg/dL 06/10/2023 7:[address] [facility] 06/10/2023 2:30 PM OIL SPOT WASHER Josué Cook MD LABORATORY Final Result [facility] [address] [place] [address], * (ABNORMAL) CBC W/DIFF AUTOMATED (06/10/2023 2:30 PM OIL SPOT WASHER) WBC 6.74 4.4 - 11.0 x10'3/uL 06/10/2023 3:16 PM [facility] RBC 4.08(L) 4.50 - 5.10 x10'6/uL 06/10/2023 3:16 PM [facility] HGB 13.0 12.3 - 15.3 G/DL 06/10/2023 3:16 PM [facility] HCT 39.3 35.9 - 44.6 % 06/10/2023 3:16 PM [facility] MCV 96.3(H) 80.0 - 96.0 FL 06/10/2023 3:16 PM [facility] MCH 31.9(H) 25.3 - 30.9 PG 06/10/2023 3:[address] [facility] MCHC 33.1 31.0 - 34.1 G/DL 06/10/2023 3:16 PM [facility] RDW 14.3 12.4 - 15.1 % 06/10/2023 3:16 PM [facility] PLT 255 151 - 353 x10'3/uL 06/10/2023 3:16 PM [facility] MPV 9.2(L) 9.6 - 12.0 FL 06/10/2023 3:16 PM [facility] RBC MORPHOLOGY NORMAL 06/10/2023 3:16 PM [facility] PLT MORPH. NORMAL 06/10/2023 3:16 PM [facility] WBC MORPHOLOGY NORMAL 06/10/2023 3:[address] [facility] LYMPHOCYTES % 28.2 15.8 - 45.0 % 06/10/2023 3:16 PM [facility] NEUTROPHILS % 58.5 42.1 - 71.9 % 06/10/2023 3:16 PM [facility] MONOCYTES % 9.3 5.7 - 12.5 % 06/10/2023 3:16 PM [facility] EOSINOPHILS 3.0 0.0 - 5.6 % 06/10/2023 3:16 PM [facility] BASOPHILS 0.6 0.0 - 1.3 % 06/10/2023 3:16 PM [facility] ABS. NEUTROPHILS 3.94 1.40 - 6.00 x10'3/uL 06/10/2023 3:16 PM [facility] IMMATURE GRANS % 0.4 0.0 - 0.5 % 06/10/2023 3:16 PM [facility] ABS. LYMPHOCYTES 1.90 0.80 - 4.70 x10'3/uL 06/10/2023 3:16 PM [facility] 06/10/2023 2:30 PM OIL SPOT WASHER us Josué Cook MD LABORATORY Final Result [facility] [address] [place] [address], [place] [phone] * (ABNORMAL) COMPREHENSIVE METABOLIC PANEL (06/10/2023 2:30 PM OIL SPOT WASHER) [facility] GLUCOSE 101(H) 70 - 99 MG/DL 06/10/2023 3:15 PM [facility] BUN 14 7 - 18 MG/DL 06/10/2023 3:15 PM [facility] CREATININE S/P/B 0.92 0.55 - 1.02 MG/DL 06/10/2023 3:15 PM [facility] SODIUM S/P/B 141 136 - 145 MMOL/L 06/10/2023 3:15 PM [facility] POTASSIUM S/P/B 4.2 3.5 - 5.1 MMOL/L 06/10/2023 3:15 PM [facility] CHLORIDE S/P/B 104 100 - 108 MMOL/L 06/10/2023 3:15 PM [facility] CO2 32.4(H) 21 - 32 MMOL/L 06/10/2023 3:15 PM [facility] CALCIUM S/P/B 9.7 8.5 - 10.1 MG/DL 06/10/2023 3:15 PM [facility] BILIRUBIN TOTAL S/P/B 0.7 0.2 - 1.2 MG/DL 06/10/2023 3:15 PM [facility] TOTAL PROTEIN S/P/B 6.7 6.4 - 8.2 G/DL 06/10/2023 3:15 PM [facility] ALBUMIN S/P/B 3.4 3.4 - 5.0 G/DL 06/10/2023 3:15 PM [facility] AST 22 15 - 37 U/L 06/10/2023 3:15 PM [facility] ALT 28 14 - 55 U/L 06/10/2023 3:[address] [facility] ALKALINE PHOSPHATASE S/P/B 63 50 - 136 U/L 06/10/2023 3:[address] [facility] ANION GAP 4.6(L) 5 - 15 MMOL/L 06/10/2023 3:[address] [facility] BUN CREATININE RATIO 15.2 6 - 26 06/10/2023 3:[address] [facility] A/G RATIO 1.0 1.0 - 2.0 RATIO 06/10/2023 3:[address] [facility] GFR ESTIMATE 63(L) >90 ML/MIN/1.7 3 M2 06/10/2023 3:[address] [facility] Comment: NOTE: eGFR is not calculated for patients <18 years of age. This is an estimated GFR calculation using the new CKD EPI creatinine equation without race and so does not require a correction factor for race. This estimated GFR should not be used for calculating drug doses. 06/10/2023 2:30 PM OIL SPOT WASHER Josué Cook MD LABORATORY Final Result [facility] [address] [place] [address], * HEPATITIS E ANTIBODY IGG (06/10/2023 2:30 PM OIL SPOT WASHER) HEPATITIS E IGG NOT DETECTED 023 8:39 PM OIL SPOT WASHER [facility] Comment: REFERENCE RANGE: NOT DETECTED Hepatitis E virus (HEV) is a major cause of enteric non-A hepatitis worldwide. HEV IgG is typically detected within one month after infection, and persists for months to years after recovery. Approximately 20% of the [place] population is positive for HEV IgG, indicating that HEV exposure is more common than previously thought. This test was developed and its analytical performance characteristics have been determined by [employer]. It has not been cleared or approved by FDA. This assay has been validated pursuant to the CLIA regulations and is used for clinical purposes. Test performed by [employer] ? [address], ? [place] [address] ? Sprayer Machine: Lillian Duong MD,PHD,JOVANY Test Reported by [facility], [employer] [facility], [address] [place], [place] Gamal Gao M.D., Ph.D., Director of Laboratories , [facility] [id number] 06/10/2023 2:30 PM OIL SPOT WASHER Josué Cook MD LABORATORY Final Result Performing Organization Address City/[facility]/ZIP Co de Phone Number [facility] [place] [id number] [place], [place] , [place] [phone] * HEPATITIS B CORE AB IGM (06/10/2023 2:30 PM OIL SPOT WASHER) Pathologist [facility] HEP B CORE IGM NON-REACTI VE NON-REACTI VE 06/10/2023 8:[address] [facility] 06/10/2023 2:30 PM OIL SPOT WASHER Josué Cook MD LABORATORY Final Result [facility] [address] [place] [address], [place] [phone] * HEPATITIS B SURFACE AG, EIA (06/10/2023 2:30 PM OIL SPOT WASHER) HEPATITIS B SURFACE AG NON-REACTI VE NON-REACTI VE 06/10/2023 8:[address] [facility] 06/10/2023 2:30 PM OIL SPOT WASHER us Josué Cook MD LABORATORY Final Result Performing Organization Address [facility] Co de Phone Number [facility] [address] [place] [address], [place] [phone] * TBGOLD-TUBERCULOSIS TST CELL MEDIATED IMMUNITY (06/10/2023 2:30 PM OIL SPOT WASHER) TB1 AG MINUS NIL 0.06 IU/ML 06/11/20 1:11 PM OIL SPOT WASHER [facility] TB2 AG MINUS NIL 0.08 IU/ML 06/11/20 1:11 PM OIL SPOT WASHER [facility] TB QUANTIFERON NEGATIVE NEGATIVE 06/11/2023 1:11 PM OIL SPOT WASHER [facility] TB INTERPRETATION M. tuberculosis infection unlikely but cannot be excluded especially when any illness is consistent with TB disease and/or likelihood of progression to disease is increased. ?? In patients at high risk to M. tuberculosis infection, a second test should be considered. 06/11/2023 1:11 PM OIL SPOT WASHER [facility] 06/10/2023 2:30 PM OIL SPOT WASHER us Josué Cook MD LABORATORY Final Result Performing Organization Address City/[facility]/ZIP Co de Phone Number [facility] [address] [place] [address], [place] [phone] * HEPATITIS B POST-VACCINE ANTIBODY (06/10/2023 2:30 PM OIL SPOT WASHER) HEP B SURFACE AB <3.10 mIU/mL 06/10/2023 8:[address] [facility] Comment: REFERENCE RANGE >=12.00 PATIENT DOES NOT HAVE IMMUNITY TO HEPATITIS B VIRUS 06/10/2023 2:30 PM OIL SPOT WASHER Josué Cook MD LABORATORY Final Result [facility] [address] [place] [address], [place] [phone] * (ABNORMAL) PROMETHEUS THIOPURINE METABOLITES (06/10/2023 2:30 PM OIL SPOT WASHER) 6-TG 452(H) 235 - 400 06/14/2023 3:36 PM OIL SPOT WASHER [facility] Comment: Units: ??pmol/8x10(8)RBC This test was developed and its analytical performance characteristics have been determined by [employer]. It has not been cleared or approved by the FDA. This assay has been validated pursuant to the CLIA regulations and is used for clinical purposes. 6-MMP 8,511(H) <5,700 06/14/2023 3:36 PM OIL SPOT WASHER [facility] Comment: Units: ??pmol/8x10(8)RBC These results are useful in assessing a patient's metabolism of azathioprine (AZA) or 6-mercaptopurine (6-MP). A 6-thioguanine (6-TG) level greater than 235 pmol/8x10(8) RBC has been associated with remission and very high levels have been associated with leucopenia. 6-methylmercaptopurine (6-MMP) levels greater than 5700 pmol/8x10(8) RBC may be associated with hepatoxicity. This test was developed and its analytical performance characteristics have been determined by [employer]. It has not been cleared or approved by the FDA. This assay has been validated pursuant to the CLIA regulations and is used for clinical purposes. Test performed by [employer] ? [address] [facility], ? [place] [address] ? Sprayer Machine: NICOLA JOHNSON M.D. Test Reported by [facility], [employer] [facility], [address] [place], [place] Gamal Gao M.D., Ph.D., Director of Laboratories , [place] [id number] 06/10/2023 2:30 PM OIL SPOT WASHER Josué Cook MD LABORATORY Final Result [facility] [address] [place], [place] , [place] [phone] documented in this encounter Visit Diagnoses Diagnosis Chronic ulcerative colitis, unspecified complication (CMS/HCC HHS/HCC)- Primary Abnormal liver function tests Other abnormal blood chemistry documented in this encounter Administered Medications Inactive Administered Medications - up to 3 most recent administrations Medication Order MAR Action Action Date Dose Rate Site acetaminophen (TYLENOL) tablet 500 mg 500 mg, Oral, As needed, Other, for reaction, Starting on Fri06/10/23 at 1337, Until Fri06/10/23 at 1803, Maximum dose of acetaminophen is 4000 mg from all sources in 24 hours.Indications:Abnormal liver function tests,Chronic ulcerative colitis, unspecified complication (CMS/HCC HHS/HCC) acetaminophen (TYLENOL) tablet 650 mg 650 mg, Oral, Once as needed, Other, pre med, 1 dose, Starting on Fri06/10/23 at 1337, Until Fri06/10/23 at 1412, Maximum dose of acetaminophen is 4000 mg from all sources in 24 hours.Indications:Abnormal liver function tests,Chronic ulcerative colitis, unspecified complication (CMS/HCC HHS/HCC) Given 06/10/2023 2:12 PM OIL SPOT WASHER 650 mg diphenhydrAMINE (BENADRYL) capsule 25 mg 25 mg, Oral, Once as needed, Other, premed, 1 dose, Starting on Fri06/10/23 at 1337, Until Fri06/10/23 at 1413Indications:Abnormal liver function tests,Chronic ulcerative colitis, unspecified complication (CMS/HCC HHS/HCC) Given 06/10/2023 2:13 PM OIL SPOT WASHER 25 mg diphenhydrAMINE (BENADRYL) injection 25 mg 25 mg, Intravenous, Once as needed, Severe hypersensitivity reaction (dyspnea, bronchospasm, urticaria, flushing, rash, and increased heart rate), Starting on Fri06/10/23 at 1337, Until Fri06/10/23 at 1803, For IV administration, give no faster than 25 mg/min. For severe hypersensitivity reaction (dyspnea, bronchospasm, urticaria, flushing, rash, and increased heart rate).Indications:Abnormal liver function tests,Chronic ulcerative colitis, unspecified complication ([facility] HHS/HCC) EPINEPHrine PF (ADRENALIN) 1 mg/mL injection 0.3 mg 0.3 mg, Intramuscular, Every 5 min PRN, Other, Severe hypersensitivity reaction (dyspnea, bronchospasm, urticaria, flushing, rash, and increased heart rate), 3 doses, Starting on Fri06/10/23 at 1337, Until Fri06/10/23 at 1803, Severe hypersensitivity reaction (dyspnea, bronchospasm, urticaria, flushing, rash, and increased heart rate)Indications:Abnormal liver function tests,Chronic ulcerative colitis, unspecified complication ([facility] HHS/HCC) hydrocortisone sodium succinate (Solu-CORTEF) injection 100 mg 100 mg, Intravenous, Once as needed, Severe hypersensitivity reaction (dyspnea, bronchospasm, urticaria, flushing, rash, and increased heart rate), Starting on Fri06/10/23 at 1337, Until Fri06/10/23 at 1803, Administer over 1-2 minutes. For severe hypersensitivity reaction (dyspnea, bronchospasm, urticaria, flushing, rash, and increased heart rate).Indications:Abnormal liver function tests,Chronic ulcerative colitis, unspecified complication ([facility]/HCC HHS/HCC) vedolizumab (ENTYVIO) 300 mg in sodium chloride 0.9 % 250 mL IVPB 300 mg, Intravenous, Administer over 30 Minutes, Once, 1 dose, On Fri06/10/23 at 1400, Provider Instruction: Therapy should not be continued after week 14 if no therapeutic benefit is seen. Do not administer IV push or bolus. Flush line with 30 mL NS after completion.Indications:Abnormal liver function tests,Chronic ulcerative colitis, unspecified complication ([facility] HHS/HCC) New Bag 06/10/2023 2:45 PM OIL SPOT WASHER 300 mg 500 mL/hr documented in this encounter Active and Recently Administered Medications Times are shown in OIL SPOT WASHER. Scheduled Medication Order 06/08/2023 06/09/2023 06/10/2023 vedolizumab (ENTYVIO) 300 mg in sodium chloride 0.9 % 250 mL IVPB (COMPLETED) 300 mg, Intravenous, Administer over 30 Minutes, Once, 1 dose, On Fri06/10/23 at 1400, Provider Instruction: Therapy should not be continued after week 14 if no therapeutic benefit is seen. Do not administer IV push or bolus. Flush line with 30 mL NS after completion. 1445 (New Bag - Prov ider: Varsha Christie RN)1520 (Infusion Stop Time - Provider: Varsha Christie RN) PRN Medication Order 06/08/2023 06/09/2023 06/10/2023 acetaminophen (TYLENOL) tablet 500 mg 500 mg, Oral, As needed, Other, for reaction, Starting on Fri06/10/23 at 1337, Until Fri06/10/23 at 1803, Maximum dose of acetaminophen is 4000 mg from all sources in 24 hours. acetaminophen (TYLENOL) tablet 650 mg (COMPLETED) 650 mg, Oral, Once as needed, Other, pre med, 1 dose, Starting on Fri06/10/23 at 1337, Until Fri06/10/23 at 1412, Maximum dose of acetaminophen is 4000 mg from all sources in 24 hours. 1412 (Given - Provid er: Varsha Christie RN - Comment: premed) diphenhydrAMINE (BENADRYL) capsule 25 mg (COMPLETED) 25 mg, Oral, Once as needed, Other, premed, 1 dose, Starting on Fri06/10/23 at 1337, Until Fri06/10/23 at 1413 1413 (Given - Provid er: Varsha Christie RN) diphenhydrAMINE (BENADRYL) injection 25 mg 25 mg, Intravenous, Once as needed, Severe hypersensitivity reaction (dyspnea, bronchospasm, urticaria, flushing, rash, and increased heart rate), Starting on Fri06/10/23 at 1337, Until Fri06/10/23 at 1803, For IV administration, give no faster than 25 mg/min. For severe hypersensitivity reaction (dyspnea, bronchospasm, urticaria, flushing, rash, and increased heart rate). EPINEPHrine PF (ADRENALIN) 1 mg/mL injection 0.3 mg 0.3 mg, Intramuscular, Every 5 min PRN, Other, Severe hypersensitivity reaction (dyspnea, bronchospasm, urticaria, flushing, rash, and increased heart rate), 3 doses, Starting on Fri06/10/23 at 1337, Until Fri06/10/23 at 1803, Severe hypersensitivity reaction (dyspnea, bronchospasm, urticaria, flushing, rash, and increased heart rate) hydrocortisone sodium succinate (Solu-CORTEF) injection 100 mg 100 mg, Intravenous, Once as needed, Severe hypersensitivity reaction (dyspnea, bronchospasm, urticaria, flushing, rash, and increased heart rate), Starting on Fri06/10/23 at 1337, Until Fri06/10/23 at 1803, Administer over 1-2 minutes. For severe hypersensitivity reaction (dyspnea, bronchospasm, urticaria, flushing, rash, and increased heart rate). documented in this encounter Additional Health Concerns Assessment Noted Time PHQ-9 Depression Total Score: 0 07/06/20 4:06 PM OIL SPOT WASHER documented as of this encounter Care Teams Machine Adjuster Leader Case Trim Relationship Specialty Start Date End Date Servando Torre MD [address] [place] [address] [address] [place] [address] PCP - General FAMILY PRACTICE 07/17/22 documented as of this encounter
--- OUTSIDE RECORDS SUMMARY | 2024-07-12 19:33 | XMS_ITS | Encounter Summary ---
Author Organization [facility] Address [address] [facility] [place] [address] [place] [address] Care Team Providers Care Vice Provost Name Role Phone Servando Torre MD Primary Care Provider Encounter Details Date Type Department Care Team (Late st Contact Info) Description 05/04/2023 Orders Only [facility] [address] [place] [address] Derick Martínez MD [address] [facility] [address] [place] [address] Social History Tobacco Use Types Packs/Day Years [...] st Contact Info) Description 08/03/2024 2:00 PM BIOLOGY TUTOR Appointment [address] [address] Josué Cook MD [address] [address] documented as of this encounter Goals Goal Patient Goal Type Associated Problems Recent Progress Patient-Stated? Author HOME TO [facility] No Vannessa Blackwell RN documented as of this encounter Visit Diagnoses Not on filedocumented in this encounter Additional Health Concerns Assessment Noted Time PHQ-9 Depression Total Score: 0 07/06/20 4:06 PM BIOLOGY TUTOR documented as of this encounter Care Teams Vice Provost Relationship Specialty Start Date End Date Servando Torre MD [address] [place] [address] [address] [place] [address] PCP - General FAMILY PRACTICE 07/17/22 documented as of this encounter
--- OUTSIDE RECORDS SUMMARY | 2024-07-12 19:33 | XMS_ITS | Encounter Summary ---
Author Organization [facility] Address [address] [facility] [place] [address] [place] [address] Care Team Providers Care Customer Care Representative Name Role Phone Servando Torre MD Primary Care Provider [phone] Reason for Visit * Treatment/Therapy Plan Authorization (Routine) - Closed Specialty Diagnoses / Procedures Referred By Angel braswell Referred To Contact Diagnoses Chronic ulcerative colitis, unspecified complication ([facility]/HCC [facility]) Procedures VEDOLIZUMAB, INJECTION [facility] [address] [place] [address] Phone: tel: [facility] [address] [place] [address] Phone: tel: Referral ID Status Reason Start Date Expiration Date Visits Re quested Visits Authorized [id number] Closed 06/18/2022 3 3 Encounter Details Date Type Department Care Team (Latest Contact Info) Description 07/17/2022 1:51 PM PHILOSOPHY SPECIALIST - 07/17/2022 4:30 PM PHILOSOPHY SPECIALIST Hospital Encounter [facility] [address] [place] [address] Mariela Denton MD [facility] [address] [place] [address] Discharge Disposition: Home or Self Care (Routine [...] Coronavirus/COVID-19? No / Unsure 07/17/2022 1:45 PM PHILOSOPHY SPECIALIST documented as of this encounter Last Filed Vital Signs Vital Sign Reading Time Taken Comments Blood Pressure 143/64 07/17/2022 4:05 PM PHILOSOPHY SPECIALIST Pulse 56 07/17/2022 4:05 PM PHILOSOPHY SPECIALIST Temperature 36.7 ??C (98.1 ??F) 07/17/2022 4:05 PM CS T Respiratory Rate - - Oxygen Saturation 95% 07/17/2022 4:05 PM PHILOSOPHY SPECIALIST Inhaled Oxygen Concentration - - Weight - [...] st Contact Info) Description 08/03/2024 2:00 PM PHILOSOPHY SPECIALIST Appointment [facility] Day [facility] [address] [place], [place] [id number] Josué Cook MD [address] [facility] [address] [place] [address] documented as of this encounter Goals Goal Patient Goal Type Associated Problems Recent Progress Patient-Stated? Author HOME TO [facility] Vannessa Light RN documented as of this encounter Procedures Procedure Name Priority Date/Time Associated Diagnosis Comments HEPATIC FUNCTION PANEL Routine 07/17/2022 3:00 PM PHILOSOPHY SPECIALIST Chronic ulcerative colitis, unspecified complication (CMS/HCC HHS/HCC) CBC W/DIFF AUTOMATED Routine 07/17/2022 3:00 PM PHILOSOPHY SPECIALIST Chronic ulcerative colitis, unspecified complication (CMS/HCC HHS/HCC) documented in this encounter Results * (ABNORMAL) HEPATIC FUNCTION PANEL (07/17/2022 3:00 PM PHILOSOPHY SPECIALIST) TOTAL PROTEIN S/P/B 6.8 6.4 - 8.2 G/DL 07/17/2022 3:40 PM [facility] ALBUMIN S/P/B 3.3(L) 3.4 - 5.0 G/DL 07/17/2022 3:40 PM [facility] BILIRUBIN TOTAL S/P/B 0.3 0.2 - 1.2 MG/DL 07/17/2022 3:40 PM [facility] BILIRUBIN DIRECT S/P/B 0.1 0.0 - 0.20 MG/DL 07/17/2022 3:40 PM [facility] BILIRUBIN INDIRECT S/P/B 0.2 0.0 - 0.9 MG/DL 07/17/2022 3:40 PM [facility] ALKALINE PHOSPHATASE S/P/B 66 50 - 136 U/L 07/17/2022 3:40 PM [facility] AST 21 15 - 37 U/L 07/17/2022 3:40 PM [facility] ALT 16 14 - 55 U/L 07/17/2022 3:40 PM [facility] A/G RATIO 0.9(L) 1.0 - 2.0 RATIO 07/17/2022 3:40 PM [facility] 07/17/2022 3:00 PM PHILOSOPHY SPECIALIST us Mariela Denton MD LABORATORY Final Res ult [facility] [address] [place] [address], * (ABNORMAL) CBC W/DIFF AUTOMATED (07/17/2022 3:00 PM PHILOSOPHY SPECIALIST) WBC 7.7 4.4 - 11.0 x10'3/uL 07/17/2022 3:12 PM PHILOSOPHY SPECIALIST [facility] RBC 4.29(L) 4.50 - 5.10 x10'6/uL 07/17/2022 3:12 PM [facility] HGB 12.9 12.3 - 15.3 G/DL 07/17/2022 3:12 PM [facility] HCT 39.8 35.9 - 44.6 % 07/17/2022 3:12 PM [facility] MCV 92.8 80.0 - 96.0 FL 07/17/2022 3:12 PM PHILOSOPHY SPECIALIST [facility] MCH 30.1 25.3 - 30.9 PG 07/17/2022 3:12 PM PHILOSOPHY SPECIALIST [facility] MCHC 32.4 31.0 - 34.1 G/DL 07/17/2022 3:12 PM [facility] RDW 14.9 12.4 - 15.1 % 07/17/2022 3:12 PM PHILOSOPHY SPECIALIST [facility] PLT 263 151 - 353 x10'3/uL 07/17/2022 3:12 PM [facility] MPV 9.1(L) 9.6 - 12.0 FL 07/17/2022 3:12 PM PHILOSOPHY SPECIALIST [facility] RBC MORPHOLOGY NORMAL 07/17/2022 3:12 PM [facility] PLT MORPH. NORMAL 07/17/2022 3:12 PM PHILOSOPHY SPECIALIST [facility] WBC MORPHOLOGY NORMAL 07/17/2022 3:12 PM PHILOSOPHY SPECIALIST [facility] LYMPHOCYTES % 27.8 15.8 - 45.0 % 07/17/2022 3:12 PM PHILOSOPHY SPECIALIST [facility] NEUTROPHILS % 61.0 42.1 - 71.9 % 07/17/2022 3:12 PM PHILOSOPHY SPECIALIST [facility] MONOCYTES % 7.7 5.7 - 12.5 % 07/17/2022 3:12 PM [facility] EOSINOPHILS 2.6 0.0 - 5.6 % 07/17/2022 3:12 PM PHILOSOPHY SPECIALIST [facility] BASOPHILS 0.5 0.0 - 1.3 % 07/17/2022 3:12 PM PHILOSOPHY SPECIALIST [facility] ABS. NEUTROPHILS 4.70 1.40 - 6.00 x10'3/uL 07/17/2022 3:12 PM PHILOSOPHY SPECIALIST [facility] IMMATURE GRANS % 0.4 0.0 - 0.5 % 07/17/2022 3:12 PM PHILOSOPHY SPECIALIST [facility] ABS. LYMPHOCYTES 2.14 0.80 - 4.70 x10'3/uL 07/17/2022 3:12 PM [facility] 07/17/2022 3:00 PM PHILOSOPHY SPECIALIST us Mariela Denton MD LABORATORY Final Res ult [facility] [address] [place] [address], documented in this encounter Visit Diagnoses Diagnosis Chronic ulcerative colitis, unspecified complication (CMS/HCC HHS/HCC)- Primary documented in this encounter Administered Medications Inactive Administered Medications - up to 3 most recent administrations Medication Order MAR Action Action Date Dose Rate Site acetaminophen (TYLENOL) tablet 650 mg 650 mg, Oral, Once as needed, Mild pain (Scale 1 - 3), 1 dose, Starting on Fri07/17/22 at 1436, Until Fri07/17/22 at 1833, Administer 30 mins prior to infusion Maximum dose of acetaminophen is 4000 mg from all sources in 24 hours.Indications:Chronic ulcerative colitis, unspecified complication (CMS/HCC HHS/HCC) diphenhydrAMINE (BENADRYL) capsule 25 mg 25 mg, Oral, Once as needed, premedicate 30 mins prior to infusion, 1 dose, Starting on Fri07/17/22 at 1436, Until Fri07/17/22 at 1510Indications:Chronic ulcerative colitis, unspecified complication (CMS/HCC HHS/HCC) Given 07/17/2022 3:10 PM PHILOSOPHY SPECIALIST 25 mg vedolizumab (ENTYVIO) 300 mg in sodium chloride 0.9 % 250 mL IVPB 300 mg, Intravenous, Administer over 30 Minutes, Once, 1 dose, On Fri07/17/22 at 1500, Initial treatment at week 0,2 and 6 weeks, then every 8 weeks for maintenance Provider Instruction: Therapy should not be continued after week 14 if no therapeutic benefit is seen. Do not administer IV push or bolus. Flush line with 30 mL NS after completion.Indications:Chronic ulcerative colitis, unspecified complication (CMS/HCC HHS/HCC) New Bag 07/17/2022 3:30 PM PHILOSOPHY SPECIALIST 300 mg 500 mL/hr documented in this encounter Active and Recently Administered Medications Times are shown in PHILOSOPHY SPECIALIST. Scheduled Medication Order 07/15/2022 07/16/2022 07/17/2022 vedolizumab (ENTYVIO) 300 mg in sodium chloride 0.9 % 250 mL IVPB (COMPLETED) 300 mg, Intravenous, Administer over 30 Minutes, Once, 1 dose, On Fri07/17/22 at 1500, Initial treatment at week 0,2 and 6 weeks, then every 8 weeks for maintenance Provider Instruction: Therapy should not be continued after week 14 if no therapeutic benefit is seen. Do not administer IV push or bolus. Flush line with 30 mL NS after completion. 1530 (New Bag - Prov ider: Mayra Carter RN)1600 (Infusion Stop Time - Provider: Mayra Carter RN) PRN Medication Order 07/15/2022 07/16/2022 07/17/2022 acetaminophen (TYLENOL) tablet 650 mg 650 mg, Oral, Once as needed, Mild pain (Scale 1 - 3), 1 dose, Starting on Fri07/17/22 at 1436, Until Fri07/17/22 at 1833, Administer 30 mins prior to infusion Maximum dose of acetaminophen is 4000 mg from all sources in 24 hours. 1520 (Not Given - Pr ovider: Mayra Carter RN - Reason: Patient already took - Comment: took at home) diphenhydrAMINE (BENADRYL) capsule 25 mg (COMPLETED) 25 mg, Oral, Once as needed, premedicate 30 mins prior to infusion, 1 dose, Starting on Fri07/17/22 at 1436, Until Fri07/17/22 at 1510 1510 (Given - Provid er: Mayra Carter RN) documented in this encounter Additional Health Concerns Assessment Noted Time PHQ-9 Depression Total Score: 0 07/06/20 4:06 PM PHILOSOPHY SPECIALIST documented as of this encounter Care Teams Customer Care Representative Relationship Specialty Start Date End Date Servando Torre MD [address] [place] [address] [address] [place] [address] PCP - General FAMILY PRACTICE 07/17/22 documented as of this encounter
--- OUTSIDE RECORDS SUMMARY | 2024-07-12 19:33 | XMS_ITS | Encounter Summary ---
Author Organization [facility] Address [address] [facility] [place] [address] [place] [address] Care Team Providers Care Occupancy Specialist Name Role Phone Jared Abrams MD Primary Care Provider [phone] Reason for Visit * Reason Onset Date Comments Medication Information 04/25/2022 Medication Problem 04/25/2022 Encounter Details Date Type Department Care Team (Late st Contact Info) Description 04/25/2022 Telephone [facility] Medical Group Multispecialty Care - [facility] [address] [facility], [address] [place] [address] Vladimir Parsons MD [address] [place] [address] [address] [place] [address] Medication Information; Medication Problem Social History Tobacco Use Types Packs/Day Years [...] documented in this encounter Progress Notes * Liu Caballero NP - 05/01/2022 12:31 PM CDTAddended by: LIU CABALLERO on: 05/01/2022 12:31 PM Modules accepted: Orders * Liu Caballero NP - 05/01/2022 12:29 PM CDT Azathioprine script reordered. Contacted pharmacy to clarify script. * Zana Nguyen - 05/01/2022 11:47 AM CDT Evelyne with [facility] has requested a call from someone regarding the Azathioprine prescription. Shestates the directions they received still are not accurate. It states to dispense 1 50mg tab daily and then states 100mg daily on the script as well. She says they have been attempting to correct thescript for two weeks now and would rather speak directly to someone to resolve. [phone] * Liu Caballero NP - 04/26/2022 2:27 PM CDTAddended by: LIU CABALLERO on: 04/26/2022 02:27 PM Modules accepted: Orders * Liu Caballero NP - 04/26/2022 2:27 PM CDT Resent correct prescription * Kimberley Pang - 04/26/2022 12:58 PM CDT Spoke with pharmacist prescription quantity does not match up with directions. * Laya Gaxiola - 04/25/2022 3:08 PM CDT Evelyne from [facility] pharmacy called and stated that she is needing clarification on the Pt Azathioprine prescription. Please give Evelyne a call back to discuss [phone] documented in this encounter Plan of Treatment Upcoming Encounters Date Type Department Care Team (Late st Contact Info) Description 08/03/2024 2:00 PM METER READER Appointment [facility] [address] [place] [address] Josué Cook MD [address] [facility] [address] [place] [address] documented as of this encounter Goals Goal Patient Goal Type Associated Problems Recent Progress Patient-Stated? Author HOME TO [facility] Vannessa Light RN documented as of this encounter Visit Diagnoses Diagnosis Colitis Other and unspecified noninfectious gastroenteritis and colitis documented in this encounter Additional Health Concerns Assessment Noted Time PHQ-9 Depression Total Score: 0 07/06/20 21 4:06 PM METER READER documented as of this encounter Care Teams Occupancy Specialist Relationship Specialty Start Date End Date Jared Abrams MD PCP - General 08/28/11 07/16/22 documented as of this encounter
--- OUTSIDE RECORDS SUMMARY | 2024-07-12 19:33 | XMS_ITS | Encounter Summary ---
Author Organization [facility] Address [address] [place] [address] [place] [address] Care Team Providers Care Regional Rehabilitation Director Name Role Phone Jared Abrams MD Primary Care Provider [phone] Reason for Visit * Reason Onset Date Comments Prior Authorization 01/25/2022 Encounter Details Date Type Department Care Team (Late st Contact Info) Description 01/25/2022 Telephone [facility] Medical Group Multispecialty Care - [facility] [address] [facility], [address] [place] [phone] Vladimir Parsons MD [address] [facility] [address] [place] [address] Prior Authorization Social History Tobacco Use Types Packs/Day Years [...] documented in this encounter Progress Notes * Kimberley Pang - 01/30/2022 10:48 AM CDT Pharmacy and patient was informed of the approval. * Kimberley Pang - 01/30/2022 9:04 AM CDT Prior auth has been initiated per Jody at [facility] we will receive a fax decision within 24 hours. * Annemarie Caballero NP - 01/30/2022 8:08 AM CDT Please initiate the prior authorization * Kimberley Pang - 01/29/2022 3:07 PM CDT Should prior auth be initiated? * Zana Nguyen - 01/25/2022 3:02 PM CDT Marilyn with [employer] called to notify Dr Parsons that PA is reqwuired for the Azathioprine 50mg script. option #3, phone [phone] documented in this encounter Plan of Treatment Upcoming Encounters Date Type Department Care Team (Late st Contact Info) Description 08/03/2024 2:00 PM UPHOLSTERY TECHNICIAN Appointment [facility] [address] [place] [address] Jsoué Cook MD [facility] [address] documented as of this encounter Goals Goal Patient Goal Type Associated Problems Recent Progress Patient-Stated? Author HOME TO [facility] General No Vannessa Blackwell RN documented as of this encounter Visit Diagnoses Not on filedocumented in this encounter Additional Health Concerns Assessment Noted Time PHQ-9 Depression Total Score: 0 07/06/20 21 4:06 PM UPHOLSTERY TECHNICIAN documented as of this encounter Care Teams Regional Rehabilitation Director Relationship Specialty Start Date End Date Jared Abrams MD PCP - General 08/28/11 07/16/22 documented as of this encounter
--- OUTSIDE RECORDS SUMMARY | 2024-07-12 19:33 | XMS_ITS | Encounter Summary ---
Author Organization [facility] Address [address] [place] [address] [place] [address] Care Team Providers Care Study Lead Name Role Phone Jared Abrams MD Primary Care Provider [phone] Encounter Details Date Type Department Care Team (Late st Contact Info) Description 01/24/2022 Medication Management [facility] Medical Group Multispecialty Care - [facility] [address] [facility] [place] [phone] Vladimir Parsons MD [address] [place] [address] [address] [place] [address] Social History Tobacco Use Types Packs/Day Years [...] Recorded In the last 10 days, have jordan u been in contact with someone who [...] st Contact Info) Description 08/03/2024 2:00 PM DIRECTOR DRUG SAFETY Appointment [facility] [address] [place] [address] Josué Cook MD [address] [address] documented as of this encounter Goals Goal Patient Goal Type Associated Problems Recent Progress Patient-Stated? Author HOME TO [facility] No Vannessa Blackwell RN documented as of this encounter Visit Diagnoses Diagnosis Ulcerative colitis with complication, unspecified location ([facility]/HCC [facility])- Primary documented in this encounter Additional Health Concerns Assessment Noted Time PHQ-9 Depression Total Score: 0 07/06/20 21 4:06 PM DIRECTOR DRUG SAFETY documented as of this encounter Care Teams Study Lead Relationship Specialty Start Date End Date Jared Abrams MD PCP - General 08/28/11 07/16/22 documented as of this encounter
--- OUTSIDE RECORDS SUMMARY | 2024-07-12 19:33 | XMS_ITS | Encounter Summary ---
Author Organization [facility] Address [address] [facility] [place] [address] [place] [address] Care Team Providers Care Press Supervisor Name Role Phone Servando Torre MD Primary Care Provider [phone] Reason for Visit * Reason Onset Date Comments Orders 04/14/2023 Need updated ord ers for Entyvio infusion Encounter Details Date Type Department Care Team (Late st Contact Info) Description 04/14/[address] [facility] Day Services [address] [place], [place] [id number] Mariela Denton MD [address] [place] [address] Orders (Need updated orders for Entyvio infusion ) Social History Tobacco Use Types Packs/Day Years [...] documented in this encounter Progress Notes * Varsha Christie RN - 04/14/2023 2:27 PM CDT Pt here for Entyvio infusion today, now getting every [address] Santiago's departure. Will therefore need new order from provider that will be managing pt's care and future infusions. Please review and submit new order w/ insurance auth for the new order to [facility] Infusion center. Just FYI, pt did have a seizure over the summer and is now on Keppra. Order can be faxed to us at [phone]. Or please feel free to call w/ any questions at [phone]. documented in this encounter Plan of Treatment Upcoming Encounters Date Type Department Care Team (Late st Contact Info) Description 08/03/2024 2:00 PM BELLY DANCER Appointment [facility] Day [facility] [address] [place] [address] Josué Cook MD [address] [facility] [address] [place] [address] documented as of this encounter Goals Goal Patient Goal Type Associated Problems Recent Progress Patient-Stated? Author HOME TO [facility] Vannessa Light RN documented as of this encounter Visit Diagnoses Not on filedocumented in this encounter Additional Health Concerns Assessment Noted Time PHQ-9 Depression Total Score: 0 07/06/20 4:06 PM BELLY DANCER documented as of this encounter Care Teams Press Supervisor Relationship Specialty Start Date End Date Servando Torre MD [address] [place] [address] [address] [place] [address] PCP - General FAMILY PRACTICE 07/17/22 documented as of this encounter
--- OUTSIDE RECORDS SUMMARY | 2024-07-12 19:33 | XMS_ITS | Encounter Summary ---
Author Organization [facility] Address [address] [facility] [place] [address] [place] [address] Care Team Providers Care Extrusion Operator Name Role Phone Servando Torre MD Primary Care Provider [phone] Reason for Visit * Treatment/Therapy Plan Authorization (Routine) - Authorized Specialty Diagnoses / Procedures Referred By Angel braswell Referred To Contact Diagnoses Chronic ulcerative colitis, unspecified complication ([facility]/HCC HHS/HCC) Abnormal liver function tests Procedures VEDOLIZUMAB, INJECTION [facility] [address] [place] [address] Phone: tel: [facility] [address] [place] [address] Phone: tel: Referral ID Status Reason Start Date Expiration Date Visits Requested Visits Authorized [id number] Authorized Medication 05/01/2023 07/27/2024 99 99 Encounter Details Date Type Department Care Team (Latest Contact Info) Description 02/05/2024 1:49 PM CDT - 02/05/2024 3:15 PM CDT Hospital Encounter [facility] [address] [place] [address] Josué Cook MD [address] [facility] [address] [place] [address] Discharge Disposition: Home or Self Care (Routine [...] Sign Reading Time Taken Comments Blood Pressure 136/60 02/05/2024 3:00 PM CDT Pulse 60 02/05/2024 3:00 PM CDT Temperature 36.6 ??C (97.9 ??F) 02/05/2024 2:10 PM CD T Respiratory Rate 18 02/05/2024 3:00 PM CDT Oxygen Saturation 94% 02/05/2024 3:00 PM CDT Inhaled Oxygen Concentration - - [...] Progress Notes * Varsha Christie RN - 02/05/2024 3:24 PM CDT Pt here for Entyvio, tolerated well documented in this encounter Plan of Treatment Upcoming Encounters Date Type Department Care Team (Late st Contact Info) Description 08/03/2024 2:00 PM ELECTRIFIER OPERATOR Appointment [facility] [address] [place] [address] Josué Cook MD [address] [facility] [address] [place] [address] documented as of this encounter Goals Goal Patient Goal Type Associated Problems Recent Progress Patient-Stated? Author HOME TO [facility] Vannessa Light RN documented as of this encounter Procedures Procedure Name Priority Date/Time Associated Diagnosis Comments COMPREHENSIVE METABOLIC PANEL Routine 02/05/2024 2:10 PM CDT Chronic ulcerative colitis, unspecified complication (CMS/HCC HHS/HCC) Abnormal liver function tests C-REACTIVE PROTEIN Routine 02/05/2024 2: 10 PM CDT Chronic ulcerative colitis, unspecified complication (CMS/HCC HHS/HCC) Abnormal liver function tests CBC W/DIFF AUTOMATED Routine 02/05/2024 2:10 PM CDT Chronic ulcerative colitis, unspecified complication (CMS/HCC HHS/HCC) Abnormal liver function tests documented in this encounter Results * C-REACTIVE PROTEIN (02/05/2024 2:10 PM CDT) C-REACTIVE PROTEIN <0.29 <0.29 mg/dL 02/05/2024 7:13 PM CDT [facility] 02/05/2024 2:10 PM CDT Josué Cook MD LABORATORY Final Result [facility] [address] [place] [address], [place] [phone] * (ABNORMAL) CBC W/DIFF AUTOMATED (02/05/2024 2:10 PM CDT) WBC 8.60 4.4 - 11.0 x10'3/uL 02/05/2024 2:39 PM CDT [facility] RBC 4.42(L) 4.50 - 5.10 x10'6/uL 02/05/2024 2:39 PM CDT [facility] HGB 13.1 12.3 - 15.3 G/DL 02/05/2024 2:39 PM CDT [facility] HCT 41.1 35.9 - 44.6 % 02/05/2024 2:39 PM CDT [facility] MCV 93.0 80.0 - 96.0 FL 02/05/2024 2:39 PM CDT [facility] MCH 29.6 25.3 - 30.9 PG 02/05/2024 2:39 PM CDT [facility] MCHC 31.9 31.0 - 34.1 G/DL 02/05/2024 2:39 PM CDT [facility] RDW 12.7 12.4 - 15.1 % 02/05/2024 2:39 PM CDT [facility] PLT 247 151 - 353 x10'3/uL 02/05/2024 2:39 PM T [facility] MPV 9.5(L) 9.6 - 12.0 FL 02/05/2024 2:39 PM CDT [facility] RBC MORPHOLOGY NORMAL 02/05/2024 2:39 PM T [facility] PLT MORPH. NORMAL 02/05/2024 2:39 PM CDT [facility] WBC MORPHOLOGY NORMAL 02/05/2024 2:39 PM CDT [facility] LYMPHOCYTES % 22.2 15.8 - 45.0 % 02/05/2024 2:39 PM CDT [facility] NEUTROPHILS % 64.1 42.1 - 71.9 % 02/05/2024 2:39 PM CDT [facility] MONOCYTES % 9.7 5.7 - 12.5 % 02/05/2024 2:39 PM CDT [facility] EOSINOPHILS 2.8 0.0 - 5.6 % 02/05/2024 2:39 PM CDT [facility] BASOPHILS 0.5 0.0 - 1.3 % 02/05/2024 2:39 PM CDT [facility] ABS. NEUTROPHILS 5.52 1.40 - 6.00 x10'3/uL 02/05/2024 2:39 PM CDT [facility] IMMATURE GRANS % 0.7(H) 0.0 - 0.5 % 02/05/2024 2:39 PM CDT [facility] ABS. LYMPHOCYTES 1.91 0.80 - 4.70 x10'3/uL 02/05/2024 2:39 PM CDT [facility] 02/05/2024 2:10 PM CDT Josué Cook MD LABORATORY Final Result [facility] [address] [place] [address], [place] [phone] * (ABNORMAL) COMPREHENSIVE METABOLIC PANEL (02/05/2024 2:10 PM CDT) GLUCOSE 141(H) 70 - 99 MG/DL 02/05/2024 3:19 PM CDT [facility] BUN 19(H) 7 - 18 MG/DL 02/05/2024 3:19 PM CDT [facility] CREATININE S/P/B 1.31(H) 0.55 - 1.02 MG/DL 02/05/2024 3:19 PM CDT [facility] SODIUM S/P/B 140 136 - 145 MMOL/L 02/05/2024 3:19 PM CDT [facility] POTASSIUM S/P/B 4.4 3.5 - 5.1 MMOL/L 02/05/2024 3:19 PM CDT [facility] CHLORIDE S/P/B 105 100 - 108 MMOL/L 02/05/2024 3:19 PM [facility] CO2 31.9 21 - 32 MMOL/L 02/05/2024 3:19 PM [facility] CALCIUM S/P/B 9.5 8.5 - 10.1 MG/DL 02/05/2024 3:19 PM [facility] BILIRUBIN TOTAL S/P/B 0.2 0.2 - 1.2 MG/DL 02/05/2024 3:19 PM [facility] TOTAL PROTEIN S/P/B 6.5 6.4 - 8.2 G/DL 02/05/2024 3:19 PM [facility] ALBUMIN S/P/B 3.4 3.4 - 5.0 G/DL 02/05/2024 3:19 PM [facility] AST 13(L) 15 - 37 U/L 02/05/2024 3:19 PM [facility] ALT 13(L) 14 - 55 U/L 02/05/2024 3:19 PM [facility] ALKALINE PHOSPHATASE S/P/B 102 50 - 136 U/L 02/05/2024 3:19 PM [facility] ANION GAP 3.1(L) 5 - 15 MMOL/L 02/05/2024 3:19 PM [facility] BUN CREATININE RATIO 14.5 6 - 26 02/05/2024 3:19 PM [facility] A/G RATIO 1.1 1.0 - 2.0 RATIO 02/05/2024 3:19 PM [facility] GFR ESTIMATE 41(L) >90 ML/MIN/1.7 3 M2 02/05/2024 3:19 PM [facility] Comment: NOTE: eGFR is not calculated for patients <18 years of age. This is an estimated GFR calculation using the new CKD EPI creatinine equation without race and so does not require a correction factor for race. This estimated GFR should not be used for calculating drug doses. 02/05/2024 2:10 PM CDT Josué Cook MD LABORATORY Final Result [facility] [address] [place] [address], [place] [phone] documented in this encounter Visit Diagnoses Diagnosis Chronic ulcerative colitis, unspecified complication (CMS/HCC HHS/HCC)- Primary Abnormal liver function tests Other abnormal blood chemistry documented in this encounter Administered Medications Inactive Administered Medications - up to 3 most recent administrations Medication Order MAR Action Action Date Dose Rate Site acetaminophen (TYLENOL) tablet 500 mg 500 mg, Oral, As needed, Other, for reaction, Starting on Fri02/05/24 at 1351, Until Afua 02/05/24 at 1724, Maximum dose of acetaminophen is 4000 mg from all sources in 24 hours.Indications:Chronic ulcerative colitis, unspecified complication (CMS/HCC HHS/HCC),Abnormal liver function tests acetaminophen (TYLENOL) tablet 650 mg 650 mg, Oral, Once as needed, Other, pre med, 1 dose, Starting on Fri02/05/24 at 1351, Until Afua 02/05/24 at 1724, Maximum dose of acetaminophen is 4000 mg from all sources in 24 hours.Indications:Chronic ulcerative colitis, unspecified complication (CMS/HCC HHS/HCC),Abnormal liver function tests diphenhydrAMINE (BENADRYL) capsule 25 mg 25 mg, Oral, Once as needed, Other, premed, 1 dose, Starting on Afua 02/05/24 at 1351, Until Afua 02/05/24 at 1724Indications:Chronic ulcerative colitis, unspecified complication (CMS/HCC HHS/HCC),Abnormal liver function tests diphenhydrAMINE (BENADRYL) injection 25 mg 25 mg, Intravenous, Once as needed, Severe hypersensitivity reaction (dyspnea, bronchospasm, urticaria, flushing, rash, and increased heart rate), Starting on Afua 02/05/24 at 1351, Until Afua 02/05/24 at 1724, For IV administration, give no faster than [...] heart rate), 3 doses, Starting on Afua 02/05/24 at 1351, Until Afua 02/05/24 at 1724, Severe hypersensitivity reaction (dyspnea, bronchospasm, urticaria, flushing, rash, and increased heart rate)Indications:Chronic ulcerative colitis, unspecified complication (CMS/HCC HHS/HCC),Abnormal liver function tests hydrocortisone sodium succinate (Solu-CORTEF) injection 100 mg 100 mg, Intravenous, Once as needed, Severe hypersensitivity reaction (dyspnea, bronchospasm, urticaria, flushing, rash, and increased heart rate), Starting on Afua 02/05/24 at 1351, Until Afua 02/05/24 at 1724, Administer over 1-2 minutes. For severe hypersensitivity reaction (dyspnea, bronchospasm, urticaria, flushing, rash, and increased heart rate).Indications:Chronic ulcerative colitis, unspecified complication (CMS/HCC HHS/HCC),Abnormal liver function tests vedolizumab (ENTYVIO) 300 mg in sodium chloride 0.9 % 250 mL IVPB 300 mg, Intravenous, Administer over 30 Minutes, Once, 1 dose, On Afua 02/05/24 at 1415, Provider Instruction: Therapy should not be continued after week 14 if no therapeutic benefit is seen. Do not administer IV push or bolus. Flush line with 30 mL NS after completion.Indications:Chronic ulcerative colitis, unspecified complication (CMS/HCC HHS/HCC),Abnormal liver function tests New Bag 02/05/2024 2:20 PM CDT 300 mg 500 mL/hr documented in this encounter Active and Recently Administered Medications Times are shown in CDT. Scheduled Medication Order 02/03/2024 02/04/2024 02/05/2024 vedolizumab (ENTYVIO) 300 mg in sodium chloride 0.9 % 250 mL IVPB (COMPLETED) 300 mg, Intravenous, Administer over 30 Minutes, Once, 1 dose, On Afua 02/05/24 at 1415, Provider Instruction: Therapy should not be continued after week 14 if no therapeutic benefit is seen. Do not administer IV push or bolus. Flush line with 30 mL NS after completion. 1420 (New Bag - Prov ider: Varsha Christie RN)1450 (Due: Infusion Stop Time - Provider: Varsha Christie RN) PRN Medication Order 02/03/2024 02/04/2024 02/05/2024 acetaminophen (TYLENOL) tablet 500 mg 500 mg, Oral, As needed, Other, for reaction, Starting on Afua 02/05/24 at 1351, Until Afua 02/05/24 at 1724, Maximum dose of acetaminophen is 4000 mg from all sources in 24 hours. acetaminophen (TYLENOL) tablet 650 mg 650 mg, Oral, Once as needed, Other, pre med, 1 dose, Starting on Afua 02/05/24 at 1351, Until Afua 02/05/24 at 1724, Maximum dose of acetaminophen is 4000 mg from all sources in 24 hours. 1408 (Not Given - Pr ovider: Varsha Christie RN - Reason: Patient already took - Comment: given at 1315) diphenhydrAMINE (BENADRYL) capsule 25 mg 25 mg, Oral, Once as needed, Other, premed, 1 dose, Starting on Afua 02/05/24 at 1351, Until Afua 02/05/24 at 1724 1407 (Not Given - Pr ovider: Varsha Christie RN - Reason: Patient already took - Comment: took at 1315) diphenhydrAMINE (BENADRYL) injection 25 mg 25 mg, Intravenous, Once as needed, Severe hypersensitivity reaction (dyspnea, bronchospasm, urticaria, flushing, rash, and increased heart rate), Starting on Afua 02/05/24 at 1351, Until Afua 02/05/24 at 1724, For IV administration, give no faster than 25 mg/min. For severe hypersensitivity reaction (dyspnea, bronchospasm, urticaria, flushing, rash, and increased heart rate). EPINEPHrine PF (ADRENALIN) 1 mg/mL injection 0.3 mg 0.3 mg, Intramuscular, Every 5 min PRN, Other, Severe hypersensitivity reaction (dyspnea, bronchospasm, urticaria, flushing, rash, and increased heart rate), 3 doses, Starting on Afua 02/05/24 at 1351, Until Afua 02/05/24 at 1724, Severe hypersensitivity reaction (dyspnea, bronchospasm, urticaria, flushing, rash, and increased heart rate) hydrocortisone sodium succinate (Solu-CORTEF) injection 100 mg 100 mg, Intravenous, Once as needed, Severe hypersensitivity reaction (dyspnea, bronchospasm, urticaria, flushing, rash, and increased heart rate), Starting on Afua 02/05/24 at 1351, Until Afua 02/05/24 at 1724, Administer over 1-2 minutes. For severe hypersensitivity reaction (dyspnea, bronchospasm, urticaria, flushing, rash, and increased heart rate). documented in this encounter Additional Health Concerns Assessment Noted Time PHQ-9 Depression Total Score: 0 07/06/20 4:06 PM ELECTRIFIER OPERATOR documented as of this encounter Care Teams Extrusion Operator Relationship Specialty Start Date End Date Servando Torre MD [address] [place] [address] [address] [place] [address] PCP - General FAMILY PRACTICE 07/17/22 documented as of this encounter
--- OUTSIDE RECORDS SUMMARY | 2024-07-12 19:33 | XMS_ITS | Encounter Summary ---
Author Organization [facility] Address [address] [facility] [place] [address] [place] [address] Care Team Providers Care Roving Can Tender Name Role Phone Servando Torre MD Primary Care Provider Encounter Details Date Type Department Care Team (Latest Contact Info) Description 02/05/2024 Travel Social History Tobacco Use Types Packs/Day [...] st Contact Info) Description 08/03/2024 2:00 PM CLINICAL EDUCATION COORDINATOR Appointment [facility] [id number] [place] [address] Josué Cook MD [address] [address] documented as of this encounter Goals Goal Patient Goal Type Associated Problems Recent Progress Patient-Stated? Author HOME TO [facility] Vannessa Light RN documented as of this encounter Visit Diagnoses Not on filedocumented in this encounter Additional Health Concerns Assessment Noted Time PHQ-9 Depression Total Score: 0 07/06/20 21 4:06 PM CLINICAL EDUCATION COORDINATOR documented as of this encounter Care Teams Roving Can Tender Relationship Specialty Start Date End Date Servando Torre MD [address] [place] [address] [address] [place] [address] PCP - General FAMILY PRACTICE 07/17/22 documented as of this encounter
--- OUTSIDE RECORDS SUMMARY | 2024-07-12 19:33 | XMS_ITS | Encounter Summary ---
Author Organization [facility] Address [address] [facility] [place] [address] [place] [address] Care Team Providers Care Recycling Director Name Role Phone Servando Torre MD Primary Care Provider [phone] Reason for Visit * Treatment/Therapy Plan Authorization (Routine) - Authorized Specialty Diagnoses / Procedures Referred By Angel braswell Referred To Contact Diagnoses Chronic ulcerative colitis, unspecified complication ([facility]/HCC HHS/HCC) Abnormal liver function tests Procedures VEDOLIZUMAB, INJECTION [facility] [address] [place] [address] Phone: tel: [facility] [address] [place] [address] Phone: tel: Referral ID Status Reason Start Date Expiration Date Visits Requested Visits Authorized [id number] Authorized Medication 05/01/2023 07/27/2024 99 99 Encounter Details Date Type Department Care Team (Latest Contact Info) Description 04/02/2024 1:53 PM CDT - 04/02/2024 3:07 PM CDT Hospital Encounter [facility] [address] [place] [address] Josué Cook MD [address] [facility] [address] [place] [address] Discharge Disposition: Home or Self Care (Routine [...] Sign Reading Time Taken Comments Blood Pressure 146/55 04/02/2024 2:59 PM CDT Pulse 62 04/02/2024 2:59 PM CDT Temperature 36.9 ??C (98.5 ??F) 04/02/2024 2:59 PM CD T Respiratory Rate 16 04/02/2024 2:00 PM CDT Oxygen Saturation 97% 04/02/2024 2:59 PM CDT Inhaled Oxygen Concentration - - [...] st Contact Info) Description 08/03/2024 2:00 PM RETAIL TEAM LEADER Appointment [address] [address] Josué Cook MD [address] [facility] [address] [place] [address] documented as of this encounter Goals Goal Patient Goal Type Associated Problems Recent Progress Patient-Stated? Author HOME TO [facility] General No Vannessa Blackwell RN documented as of this encounter Procedures Procedure Name Priority Date/Time Associated Diagnosis Comments COMPREHENSIVE METABOLIC PANEL Routine 04/02/2024 1:56 PM CDT Chronic ulcerative colitis, unspecified complication (CMS/HCC HHS/HCC) Abnormal liver function tests C-REACTIVE PROTEIN Routine 04/02/2024 1: 56 PM CDT Chronic ulcerative colitis, unspecified complication (CMS/HCC HHS/HCC) Abnormal liver function tests CBC W/DIFF AUTOMATED Routine 04/02/2024 1:56 PM CDT Chronic ulcerative colitis, unspecified complication (CMS/HCC HHS/HCC) Abnormal liver function tests documented in this encounter Results * C-REACTIVE PROTEIN (04/02/2024 1:56 PM CDT) C-REACTIVE PROTEIN <0.29 <0.29 mg/dL 04/02/2024 7:48 PM CDT [facility] 04/02/2024 1:56 PM CDT Josué Cook MD LABORATORY Final Result [facility] [address] [place] [address], [place] [phone] * (ABNORMAL) CBC W/DIFF AUTOMATED (04/02/2024 1:56 PM CDT) Pathologist [facility] WBC 10.39 4.4 - 11.0 x10'3/uL 04/02/2024 2:25 PM CDT [facility] RBC 4.82 4.50 - 5.10 x10'6/uL 04/02/2024 2:25 PM CDT [facility] HGB 14.4 12.3 - 15.3 G/DL 04/02/2024 2:25 PM CDT [facility] HCT 43.8 35.9 - 44.6 % 04/02/2024 2:25 PM CDT [facility] MCV 90.9 80.0 - 96.0 FL 04/02/2024 2:25 PM CDT [facility] MCH 29.9 25.3 - 30.9 PG 04/02/2024 2:25 PM CDT [facility] MCHC 32.9 31.0 - 34.1 G/DL 04/02/2024 2:25 PM CDT [facility] RDW 12.8 12.4 - 15.1 % 04/02/2024 2:25 PM CDT [facility] PLT 268 151 - 353 x10'3/uL 04/02/2024 2:25 PM CDT [facility] MPV 9.3(L) 9.6 - 12.0 FL 04/02/2024 2:25 PM CDT [facility] RBC MORPHOLOGY NORMAL 04/02/2024 2:25 PM CDT [facility] PLT MORPH. NORMAL 04/02/2024 2:25 PM CDT [facility] WBC MORPHOLOGY NORMAL 04/02/2024 2:25 PM CDT [facility] LYMPHOCYTES % 17.7 15.8 - 45.0 % 04/02/2024 2:25 PM T [facility] NEUTROPHILS % 70.2 42.1 - 71.9 % 04/02/2024 2:25 PM CDT [facility] MONOCYTES % 8.2 5.7 - 12.5 % 04/02/2024 2:25 PM CDT [facility] EOSINOPHILS 2.9 0.0 - 5.6 % 04/02/2024 2:25 PM CDT [facility] BASOPHILS 0.6 0.0 - 1.3 % 04/02/2024 2:25 PM CDT [facility] ABS. NEUTROPHILS 7.30(H) 1.40 - 6.00 x10'3/uL 04/02/2024 2:25 PM CDT [facility] IMMATURE GRANS % 0.4 0.0 - 0.5 % 04/02/2024 2:25 PM CDT [facility] ABS. LYMPHOCYTES 1.84 0.80 - 4.70 x10'3/uL 04/02/2024 2:25 PM CDT [facility] 04/02/2024 1:56 PM CDT us Josué Cook MD LABORATORY Final Result [facility] [address] [place] [address], * (ABNORMAL) COMPREHENSIVE METABOLIC PANEL (04/02/2024 1:56 PM CDT) GLUCOSE 164(H) 70 - 99 MG/DL 04/02/2024 2:42 PM CDT [facility] BUN 15 7 - 18 MG/DL 04/02/2024 2:42 PM CDT [facility] CREATININE S/P/B 1.32(H) 0.55 - 1.02 MG/DL 04/02/2024 2:42 PM CDT [facility] SODIUM S/P/B 140 136 - 145 MMOL/L 04/02/2024 2:42 PM CDT [facility] POTASSIUM S/P/B 4.0 3.5 - 5.1 MMOL/L 04/02/2024 2:42 PM CDT [facility] CHLORIDE S/P/B 102 100 - 108 MMOL/L 04/02/2024 2:42 PM CDT [facility] CO2 28.9 21 - 32 MMOL/L 04/02/2024 2:42 PM CDT [facility] CALCIUM S/P/B 9.6 8.5 - 10.1 MG/DL 04/02/2024 2:42 PM [facility] BILIRUBIN TOTAL S/P/B 0.4 0.2 - 1.2 MG/DL 04/02/2024 2:42 PM [facility] TOTAL PROTEIN S/P/B 7.1 6.4 - 8.2 G/DL 04/02/2024 2:42 PM [facility] ALBUMIN S/P/B 3.5 3.4 - 5.0 G/DL 04/02/2024 2:42 PM [facility] AST 23 15 - 37 U/L 04/02/2024 2:42 PM [facility] ALT 20 14 - 55 U/L 04/02/2024 2:42 PM [facility] ALKALINE PHOSPHATASE S/P/B 113 50 - 136 U/L 04/02/2024 2:42 PM [facility] ANION GAP 9.1 5 - 15 MMOL/L 04/02/2024 2:42 PM [facility] BUN CREATININE RATIO 11.4 6 - 26 04/02/2024 2:42 PM [facility] A/G RATIO 1.0 1.0 - 2.0 RATIO 04/02/2024 2:42 PM [facility] GFR ESTIMATE 41(L) >90 ML/MIN/1.7 3 M2 04/02/2024 2:42 PM [facility] Comment: NOTE: eGFR is not calculated for patients <18 years of age. This is an estimated GFR calculation using the new CKD EPI creatinine equation without race and so does not require a correction factor for race. This estimated GFR should not be used for calculating drug doses. 04/02/2024 1:56 PM CDT us Anas K Gremida MD LABORATORY Final Result [facility] [address] [place] [address], [place] [phone] documented in this encounter Visit Diagnoses Diagnosis Chronic ulcerative colitis, unspecified complication (CMS/HCC HHS/HCC)- Primary Abnormal liver function tests Other abnormal blood chemistry documented in this encounter Administered Medications Inactive Administered Medications - up to 3 most recent administrations Medication Order MAR Action Action Date Dose Rate Site vedolizumab (ENTYVIO) 300 mg in sodium chloride 0.9 % 250 mL IVPB 300 mg, Intravenous, Administer over 30 Minutes, Once, 1 dose, On Fri04/02/24 at 1430, Provider Instruction: Therapy should not be continued after week 14 if no therapeutic benefit is seen. Do not administer IV push or bolus. Flush line with 30 mL NS after completion.Indications:Chroni c ulcerative colitis, unspecified complication (CMS/HCC HHS/HCC),Abnormal liver function tests New Bag 04/02/2024 2:18 PM CDT 300 mg 500 mL/hr documented in this encounter Active and Recently Administered Medications Times are shown in CDT. Scheduled Medication Order 03/31/2024 04/01/2024 04/02/2024 vedolizumab (ENTYVIO) 300 mg in sodium chloride 0.9 % 250 mL IVPB (COMPLETED) 300 mg, Intravenous, Administer over 30 Minutes, Once, 1 dose, On Fri04/02/24 at 1430, Provider Instruction: Therapy should not be continued after week 14 if no therapeutic benefit is seen. Do not administer IV push or bolus. Flush line with 30 mL NS after completion. 1418 (New Bag - Prov ider: Mable Madden, ELMO)1505 (Infusion Stop Time - Provider: Mable Madden RN) documented in this encounter Additional Health Concerns Assessment Noted Time PHQ-9 Depression Total Score: 0 07/06/20 21 4:06 PM RETAIL TEAM LEADER documented as of this encounter Care Teams Recycling Director Relationship Specialty Start Date End Date Servando Torre MD [address] [place] [address] [address] [place] [address] PCP - General FAMILY PRACTICE 07/17/22 documented as of this encounter
--- OUTSIDE RECORDS SUMMARY | 2024-07-12 19:33 | XMS_ITS | Encounter Summary ---
Author Organization [facility] Address [address] [facility] [place] [address] [place] [address] Care Team Providers Care Route Carrier Name Role Phone Servando Torre MD Primary Care Provider [phone] Reason for Visit * Treatment/Therapy Plan Authorization (Routine) - Closed Specialty Diagnoses / Procedures Referred By Angel braswell Referred To Contact Diagnoses Chronic ulcerative colitis, unspecified complication ([facility]/HCC [facility]) Procedures VEDOLIZUMAB, INJECTION [facility] [address] [place] [address] Phone: tel: [facility] [address] [place] [address] Phone: tel: Referral ID Status Reason Start Date Expiration Date Visits Re quested Visits Authorized [id number] Closed 06/18/2022 3 3 Encounter Details Date Type Department Care Team (Latest Contact Info) Description 04/14/2023 1:29 PM CDT - 04/14/2023 3:00 PM CDT Hospital Encounter [facility] [address] [place] [address] Non-Staff, Provider Mariela Denton MD [address] [place] [address] Josué Cook MD [address] [facility] 8 [facility] [place] [address] Discharge Disposition: Home or Self Care (Routine [...] Sign Reading Time Taken Comments Blood Pressure 128/48 04/14/2023 2:45 PM CDT Pulse 66 04/14/2023 1:30 PM CDT Temperature 36.7 ??C (98 ??F) 04/14/2023 1:30 PM CDT Respiratory Rate 18 04/14/2023 1:30 PM CDT Oxygen Saturation 96% 04/14/2023 2:45 PM CDT Inhaled Oxygen Concentration - [...] st Contact Info) Description 08/03/2024 2:00 PM BEAD WRAPPER Appointment [facility] Day [address] [phone] Josué Cook MD [address] [address] documented as of this encounter Goals Goal Patient Goal Type Associated Problems Recent Progress Patient-Stated? Author HOME TO [facility] No Vannessa Blackwell RN documented as of this encounter Visit Diagnoses Diagnosis Chronic ulcerative colitis, unspecified complication ([facility] HHS/HCC)- Primary documented in this encounter Administered Medications Inactive Administered Medications - up to 3 most recent administrations Medication Order MAR Action Action Date Dose Rate Site acetaminophen (TYLENOL) tablet 650 mg 650 mg, Oral, Once as needed, Mild pain (Scale 1 - 3), 1 dose, Starting on Fri04/14/23 at 1330, Until Fri04/14/23 at 1727, Administer 30 mins prior to infusion Maximum dose of acetaminophen is 4000 mg from all sources in 24 hours.Indications:Chronic ulcerative colitis, unspecified complication ([facility]/HCC HHS/HCC) acetaminophen (TYLENOL) tablet 650 mg 650 mg, Oral, Once as needed, Mild pain (Scale 1 - 3), 1 dose, Starting on Fri04/14/23 at 1330, Until Fri04/14/23 at 1727, Maximum dose of acetaminophen is 4000 mg from all sources in 24 hours.Indications:Chronic ulcerative colitis, unspecified complication ([facility] HHS/HCC) diphenhydrAMINE (BENADRYL) capsule 25 mg 25 mg, Oral, Once as needed, premedicate 30 mins prior to infusion, 1 dose, Starting on Fri04/14/23 at 1330, Until Fri04/14/23 at 1727Indications:Chronic ulcerative colitis, unspecified complication ([facility] HHS/HCC) diphenhydrAMINE (BENADRYL) injection 25 mg 25 mg, Intravenous, Once as needed, Severe hypersensitivity reaction (dyspnea, bronchospasm, urticaria, flushing, rash, and increased heart rate), Starting on Fri04/14/23 at 1330, Until Fri04/14/23 at 1727, For IV administration, give no faster than 25 mg/min. For severe hypersensitivity reaction (dyspnea, bronchospasm, urticaria, flushing, rash, and increased heart rate).Indications:Chronic ulcerative colitis, unspecified complication ([facility] HHS/HCC) EPINEPHrine PF (ADRENALIN) 1 mg/mL injection 0.3 mg 0.3 mg, Intramuscular, Every 5 min PRN, Other, Severe hypersensitivity reaction (dyspnea, bronchospasm, urticaria, flushing, rash, and increased heart rate), 3 doses, Starting on Fri04/14/23 at 1330, Until Fri04/14/23 at 1727, Severe hypersensitivity reaction (dyspnea, bronchospasm, urticaria, flushing, rash, and increased heart rate)Indications:Chronic ulcerative colitis, unspecified complication ([facility]) vedolizumab (ENTYVIO) 300 mg in sodium chloride 0.9 % 250 mL IVPB 300 mg, Intravenous, Administer over 30 Minutes, Once, 1 dose, On Fri04/14/23 at 1400, Initial treatment at week 0,2 and 6 weeks, then every 8 weeks for maintenance Provider Instruction: Therapy should not be continued after week 14 if no therapeutic benefit is seen. Do not administer IV push or bolus. Flush line with 30 mL NS after completion.Indications:Chronic ulcerative colitis, unspecified complication ([facility]) New Bag 04/14/2023 2:08 PM CDT 300 mg 500 mL/hr documented in this encounter Active and Recently Administered Medications Times are shown in CDT. Scheduled Medication Order 04/12/2023 04/13/2023 04/14/2023 vedolizumab (ENTYVIO) 300 mg in sodium chloride 0.9 % 250 mL IVPB (COMPLETED) 300 mg, Intravenous, Administer over 30 Minutes, Once, 1 dose, On Fri04/14/23 at 1400, Initial treatment at week 0,2 and 6 weeks, then every 8 weeks for maintenance Provider Instruction: Therapy should not be continued after week 14 if no therapeutic benefit is seen. Do not administer IV push or bolus. Flush line with 30 mL NS after completion. 1408 (New Bag - Prov ider: Varsha Christie RN)1440 (Infusion Stop Time - Provider: Varsha Christie RN) PRN Medication Order 04/12/2023 04/13/2023 04/14/2023 acetaminophen (TYLENOL) tablet 650 mg 650 mg, Oral, Once as needed, Mild pain (Scale 1 - 3), 1 dose, Starting on Fri04/14/23 at 1330, Until Fri04/14/23 at 1727, Administer 30 mins prior to infusion Maximum dose of acetaminophen is 4000 mg from all sources in 24 hours. acetaminophen (TYLENOL) tablet 650 mg 650 mg, Oral, Once as needed, Mild pain (Scale 1 - 3), 1 dose, Starting on Fri04/14/23 at 1330, Until Fri04/14/23 at 1727, Maximum dose of acetaminophen is 4000 mg from all sources in 24 hours. 1452 (Not Given - Pr ovider: Varsha Christie RN - Reason: Patient/family declined) diphenhydrAMINE (BENADRYL) capsule 25 mg 25 mg, Oral, Once as needed, premedicate 30 mins prior to infusion, 1 dose, Starting on Fri04/14/23 at 1330, Until Fri04/14/23 at 1727 diphenhydrAMINE (BENADRYL) injection 25 mg 25 mg, Intravenous, Once as needed, Severe hypersensitivity reaction (dyspnea, bronchospasm, urticaria, flushing, rash, and increased heart rate), Starting on Fri04/14/23 at 1330, Until Fri04/14/23 at 1727, For IV administration, give no faster than 25 mg/min. For severe hypersensitivity reaction (dyspnea, bronchospasm, urticaria, flushing, rash, and increased heart rate). 1415 (Not Given - Pr ovider: Varsha Christie RN - Reason: Patient/family declined) EPINEPHrine PF (ADRENALIN) 1 mg/mL injection 0.3 mg 0.3 mg, Intramuscular, Every 5 min PRN, Other, Severe hypersensitivity reaction (dyspnea, bronchospasm, urticaria, flushing, rash, and increased heart rate), 3 doses, Starting on Fri04/14/23 at 1330, Until Fri04/14/23 at 1727, Severe hypersensitivity reaction (dyspnea, bronchospasm, urticaria, flushing, rash, and increased heart rate) documented in this encounter Additional Health Concerns Assessment Noted Time PHQ-9 Depression Total Score: 0 07/06/20 4:06 PM BEAD WRAPPER documented as of this encounter Care Teams Route Carrier Relationship Specialty Start Date End Date Servando Torre MD [address] [place] [address] [address] [place] [address] PCP - General FAMILY PRACTICE 07/17/22 documented as of this encounter
--- OUTSIDE RECORDS SUMMARY | 2024-07-12 19:33 | XMS_ITS | Encounter Summary ---
Author Organization [facility] Address [address] [facility] [place] [address] [place] [address] Care Team Providers Care Technology Director Name Role Phone Servando Torre MD Primary Care Provider [phone] Encounter Details Date Type Department Care Team (Late st Contact Info) Description 08/19/2023 Therapy Plan [facility] [address] [place] [address] Josué Cook MD [address] [place] [address] Social History Tobacco Use Types Packs/Day Years [...] st Contact Info) Description 08/03/2024 2:00 PM INBOUND SALES MANAGER Appointment [address] [phone] Josué Cook MD [address] [address] documented as of this encounter Goals Goal Patient Goal Type Associated Problems Recent Progress Patient-Stated? Author HOME TO [facility] No Vannessa Blackwell RN documented as of this encounter Visit Diagnoses Diagnosis Abnormal liver function tests- Primary Other abnormal blood chemistry Chronic ulcerative colitis, unspecified complication (CMS/HCC HHS/HCC) documented in this encounter Additional Health Concerns Assessment Noted Time PHQ-9 Depression Total Score: 0 07/06/20 21 4:06 PM INBOUND SALES MANAGER documented as of this encounter Care Teams Technology Director Relationship Specialty Start Date End Date Servando Torre MD [address] [place] [address] [address] [place] [address] PCP - General FAMILY PRACTICE 07/17/22 documented as of this encounter
--- OUTSIDE RECORDS SUMMARY | 2024-07-12 19:33 | XMS_ITS | Encounter Summary ---
Author Organization [facility] Address [address] [place] [address] [place] [address] Care Team Providers Care Assistant Hairstylist Name Role Phone Servando Torre MD Primary Care Provider Encounter Details Date Type Department Care Team (Latest Contact Info) Description 04/02/2024 Travel Social History Tobacco Use Types Packs/Day [...] st Contact Info) Description 08/03/2024 2:00 PM LAN SUPPORT SPECIALIST Appointment [facility] [phone] [place] [address] Josué Cook MD [address] [address] documented as of this encounter Goals Goal Patient Goal Type Associated Problems Recent Progress Patient-Stated? Author HOME TO [facility] Vannessa Light RN documented as of this encounter Visit Diagnoses Not on filedocumented in this encounter Additional Health Concerns Assessment Noted Time PHQ-9 Depression Total Score: 0 07/06/20 21 4:06 PM LAN SUPPORT SPECIALIST documented as of this encounter Care Teams Assistant Hairstylist Relationship Specialty Start Date End Date Servando Torre MD [address] [place] [address] [address] [place] [address] PCP - General FAMILY PRACTICE 07/17/22 documented as of this encounter
--- OUTSIDE RECORDS SUMMARY | 2024-07-12 19:33 | XMS_ITS | Encounter Summary ---
Author Organization [facility] Address [address] [facility] [place] [address] [place] [address] Care Team Providers Care Animal Ride Manager Name Role Phone Servando Torre MD Primary Care Provider [phone] Encounter Details Date Type Department Care Team (Latest Contact Info) Description 07/31/2022 Travel Social History Tobacco Use Types Packs/Day [...] Coronavirus/COVID-19? No / Unsure 07/31/2022 1:38 PM RN SUPPORT SERVICES documented as of this encounter Functional Status [...] st Contact Info) Description 08/03/2024 2:00 PM RN SUPPORT SERVICES Appointment [address] [address] Josué Cook MD [address] [address] documented as of this encounter Goals Goal Patient Goal Type Associated Problems Recent Progress Patient-Stated? Author HOME TO [facility] Vannessa Light RN documented as of this encounter Visit Diagnoses Not on filedocumented in this encounter Additional Health Concerns Assessment Noted Time PHQ-9 Depression Total Score: 0 07/06/20 21 4:06 PM RN SUPPORT SERVICES documented as of this encounter Care Teams Animal Ride Manager Relationship Specialty Start Date End Date Servando Torre MD [address] [place] [address] [address] [place] [address] PCP - General FAMILY PRACTICE 07/17/22 documented as of this encounter
--- OUTSIDE RECORDS SUMMARY | 2024-07-12 19:33 | XMS_ITS | Encounter Summary ---
Author Organization [facility] Address [address] [facility] [place] [place] [address] [place] [address] Care Team Providers Care Stenotypist Name Role Phone Servando Torre MD Primary Care Provider [phone] Encounter Details Date Type Department Care Team (Latest Contact Info) Description 04/14/2023 Travel Social History Tobacco Use Types Packs/Day [...] st Contact Info) Description 08/03/2024 2:00 PM WINDOW AIR CONDITIONER INSTALLER Appointment [facility] [id number] [place] [address] Josué Cook MD [address] [address] documented as of this encounter Goals Goal Patient Goal Type Associated Problems Recent Progress Patient-Stated? Author HOME TO [facility] Vannessa Light RN documented as of this encounter Visit Diagnoses Not on filedocumented in this encounter Additional Health Concerns Assessment Noted Time PHQ-9 Depression Total Score: 0 07/06/20 21 4:06 PM WINDOW AIR CONDITIONER INSTALLER documented as of this encounter Care Teams Stenotypist Relationship Specialty Start Date End Date Servando Torre MD [address] [place] [address] [address] [place] [address] PCP - General FAMILY PRACTICE 07/17/22 documented as of this encounter
--- OUTSIDE RECORDS SUMMARY | 2024-07-12 19:33 | XMS_ITS | Encounter Summary ---
Author Organization [facility] Address [address] [facility] [place] [address] [place] [address] Care Team Providers Care Plant Tech Name Role Phone Servnado Torre MD Primary Care Provider [phone] Reason for Visit * Treatment/Therapy Plan Authorization (Routine) - Closed Specialty Diagnoses / Procedures Referred By Angel braswell Referred To Contact Diagnoses Chronic ulcerative colitis, unspecified complication ([facility]/HCC [facility]) Procedures VEDOLIZUMAB, INJECTION [facility] [address] [place] [address] Phone: tel: [facility] [address] [place] [address] Phone: tel: Referral ID Status Reason Start Date Expiration Date Visits Re quested Visits Authorized [id number] Closed 06/18/2022 3 3 Encounter Details Date Type Department Care Team (Latest Contact Info) Description 02/12/2023 2:27 PM CDT - 02/12/2023 3:54 PM CDT Hospital Encounter [facility] [address] [place] [address] Mariela Denton MD [address] [place] [address] Discharge Disposition: Home or Self Care (Routine [...] Sign Reading Time Taken Comments Blood Pressure 155/68 02/12/2023 2:40 PM CDT Pulse 58 02/12/2023 2:40 PM CDT Temperature 36.6 ??C (97.8 ??F) 02/12/2023 2:40 PM CD T Respiratory Rate 18 02/12/2023 2:40 PM CDT Oxygen Saturation 96% 02/12/2023 2:40 PM CDT Inhaled Oxygen Concentration - - [...] as of this encounter Progress Notes * Vee Bernstein RN - 02/12/2023 3:53 PM CDT Tolerated infusion well. Ready for discharge documented in this encounter Plan of Treatment Upcoming Encounters Date Type Department Care Team (Late st Contact Info) Description 08/03/2024 2:00 PM SECURITY ALARM TECHNICIAN Appointment [facility] [address] [address] Josué Cook MD [address] [facility] [address] [place] [address] documented as of this encounter Goals Goal Patient Goal Type Associated Problems Recent Progress Patient-Stated? Author HOME TO [facility] Vannessa Light RN documented as of this encounter Visit Diagnoses Diagnosis Chronic ulcerative colitis, unspecified complication ([facility]/HCC HHS/HCC)- Primary documented in this encounter Administered Medications Inactive Administered Medications - up to 3 most recent administrations Medication Order MAR Action Action Date Dose Rate Site acetaminophen (TYLENOL) tablet 650 mg 650 mg, Oral, Once as needed, Mild pain (Scale 1 - 3), 1 dose, Starting on Fri02/12/23 at 1433, Until Fri02/12/23 at 1754, Administer 30 mins prior to infusion Maximum dose of acetaminophen is 4000 mg from all sources in 24 hours.Indications:Chronic ulcerative colitis, unspecified complication (CMS/HCC HHS/HCC) acetaminophen (TYLENOL) tablet 650 mg 650 mg, Oral, Once as needed, Mild pain (Scale 1 - 3), 1 dose, Starting on Fri02/12/23 at 1433, Until Fri02/12/23 at 1450, Maximum dose of acetaminophen is 4000 mg from all sources in 24 hours.Indications:Chronic ulcerative colitis, unspecified complication (CMS/HCC HHS/HCC) Given 02/12/2023 2:50 PM CDT 650 mg diphenhydrAMINE (BENADRYL) capsule 25 mg 25 mg, Oral, Once as needed, premedicate 30 mins prior to infusion, 1 dose, Starting on Fri02/12/23 at 1433, Until Fri02/12/23 at 1754Indications:Chronic ulcerative colitis, unspecified complication (CMS/HCC HHS/HCC) diphenhydrAMINE (BENADRYL) injection 25 mg 25 mg, Intravenous, Once as needed, Severe hypersensitivity reaction (dyspnea, bronchospasm, urticaria, flushing, rash, and increased heart rate), Starting on Fri02/12/23 at 1433, Until Fri02/12/23 at 1754, For IV administration, give no faster than 25 mg/min. For severe hypersensitivity reaction (dyspnea, bronchospasm, urticaria, flushing, rash, and increased heart rate).Indications:Chronic ulcerative colitis, unspecified complication (CMS/HCC HHS/HCC) EPINEPHrine PF (ADRENALIN) 1 mg/mL injection 0.3 mg 0.3 mg, Intramuscular, Every 5 min PRN, Other, Severe hypersensitivity reaction (dyspnea, bronchospasm, urticaria, flushing, rash, and increased heart rate), 3 doses, Starting on Fri02/12/23 at 1433, Until Fri02/12/23 at 1754, Severe hypersensitivity reaction (dyspnea, bronchospasm, urticaria, flushing, rash, and increased heart rate)Indications:Chronic ulcerative colitis, unspecified complication ([facility]) vedolizumab (ENTYVIO) 300 mg in sodium chloride 0.9 % 250 mL IVPB 300 mg, Intravenous, Administer over 30 Minutes, Once, 1 dose, On Fri02/12/23 at 1500, Initial treatment at week 0,2 and 6 weeks, then every 8 weeks for maintenance Provider Instruction: Therapy should not be continued after week 14 if no therapeutic benefit is seen. Do not administer IV push or bolus. Flush line with 30 mL NS after completion.Indications:Chronic ulcerative colitis, unspecified complication ([facility]) New Bag 02/12/2023 3:08 PM CDT 300 mg 500 mL/hr documented in this encounter Active and Recently Administered Medications Times are shown in CDT. Scheduled Medication Order 02/10/2023 02/11/2023 02/12/2023 vedolizumab (ENTYVIO) 300 mg in sodium chloride 0.9 % 250 mL IVPB (COMPLETED) 300 mg, Intravenous, Administer over 30 Minutes, Once, 1 dose, On Fri02/12/23 at 1500, Initial treatment at week 0,2 and 6 weeks, then every 8 weeks for maintenance Provider Instruction: Therapy should not be continued after week 14 if no therapeutic benefit is seen. Do not administer IV push or bolus. Flush line with 30 mL NS after completion. 1508 (New Bag - Prov ider: Mayra Carter, RN)1550 (Infusion Stop Time - Provider: Vee Bernstein RN) PRN Medication Order 02/10/2023 02/11/2023 02/12/2023 acetaminophen (TYLENOL) tablet 650 mg 650 mg, Oral, Once as needed, Mild pain (Scale 1 - 3), 1 dose, Starting on Fri02/12/23 at 1433, Until Fri02/12/23 at 1754, Administer 30 mins prior to infusion Maximum dose of acetaminophen is 4000 mg from all sources in 24 hours. acetaminophen (TYLENOL) tablet 650 mg (COMPLETED) 650 mg, Oral, Once as needed, Mild pain (Scale 1 - 3), 1 dose, Starting on Fri02/12/23 at 1433, Until Fri02/12/23 at 1450, Maximum dose of acetaminophen is 4000 mg from all sources in 24 hours. 1450 (Given - Provid er: Mayra Carter RN - Comment: pre meds) diphenhydrAMINE (BENADRYL) capsule 25 mg 25 mg, Oral, Once as needed, premedicate 30 mins prior to infusion, 1 dose, Starting on Fri02/12/23 at 1433, Until Fri02/12/23 at 1754 1450 (Not Given - Pr ovider: Mayra Carter RN - Reason: Patient/family declined) diphenhydrAMINE (BENADRYL) injection 25 mg 25 mg, Intravenous, Once as needed, Severe hypersensitivity reaction (dyspnea, bronchospasm, urticaria, flushing, rash, and increased heart rate), Starting on Fri02/12/23 at 1433, Until Fri02/12/23 at 1754, For IV administration, give no faster than 25 mg/min. For severe hypersensitivity reaction (dyspnea, bronchospasm, urticaria, flushing, rash, and increased heart rate). EPINEPHrine PF (ADRENALIN) 1 mg/mL injection 0.3 mg 0.3 mg, Intramuscular, Every 5 min PRN, Other, Severe hypersensitivity reaction (dyspnea, bronchospasm, urticaria, flushing, rash, and increased heart rate), 3 doses, Starting on Fri02/12/23 at 1433, Until Fri02/12/23 at 1754, Severe hypersensitivity reaction (dyspnea, bronchospasm, urticaria, flushing, rash, and increased heart rate) documented in this encounter Additional Health Concerns Assessment Noted Time PHQ-9 Depression Total Score: 0 07/06/20 4:06 PM SECURITY ALARM TECHNICIAN documented as of this encounter Care Teams Plant Tech Relationship Specialty Start Date End Date Servando Torre MD [address] [place] [address] [address] [place] [address] PCP - General FAMILY PRACTICE 07/17/22 documented as of this encounter
--- OUTSIDE RECORDS SUMMARY | 2024-07-12 19:33 | XMS_ITS | Encounter Summary ---
Author Organization [facility] Address [address] [facility] [place] [address] [place] [address] Care Team Providers Care Carrier Blower Name Role Phone Servando Torre MD Primary Care Provider [phone] Encounter Details Date Type Department Care Team (Late st Contact Info) Description 05/01/2023 Therapy Plan [facility] [place] [facility] [address] [place] [address] Josué Cook MD [address] [place] [address] Social History Tobacco Use Types Packs/Day Years [...] st Contact Info) Description 08/03/2024 2:00 PM CFO CONTROLLER Appointment [address] [phone] Josué Cook MD [address] [address] documented as of this encounter Goals Goal Patient Goal Type Associated Problems Recent Progress Patient-Stated? Author HOME TO [facility]IV[facility] No Vannessa Blackwell RN documented as of this encounter Visit Diagnoses Diagnosis Chronic ulcerative colitis, unspecified complication ([facility]/HCC [facility]/HCC)- Primary Abnormal liver function tests Other abnormal blood chemistry documented in this encounter Additional Health Concerns Assessment Noted Time PHQ-9 Depression Total Score: 0 07/06/20 21 4:06 PM CFO CONTROLLER documented as of this encounter Care Teams Carrier Blower Relationship Specialty Start Date End Date Servando Torre MD [address] [place] [address] [address] [place] [address] PCP - General FAMILY PRACTICE 07/17/22 documented as of this encounter
--- OUTSIDE RECORDS SUMMARY | 2024-07-12 19:34 | XMS_ITS | Encounter Summary ---
Author Organization [facility] Address [address] [facility] [place] [address] [place] [address] Care Team Providers Care Chief Operator Synthesis Name Role Phone Jared Abrams MD Primary Care Provider [phone] Reason for Visit * Reason Onset Date Comments Appointment Request 07/12/2021 Encounter Details Date Type Department Care Team (Late st Contact Info) Description 07/12/2021 Telephone [facility] [address] [place], [place] [id number] Vladimir Parsons MD [address] [place] [id number] Appointment Request Social History Tobacco Use Types Packs/Day Years [...] please move on to questions 3-9 0 07/06/2021 Comments No Sex and Gender Information Value Date Recorded Sex Assigned at Not on file Legal Sex Female 4:50 PM CDT Gender Identity Not on file Sexual Orientation Not on file COVID-19 Exposure Response Date Recorded In the last month, have you been in contact with someone who was confirmed or suspected to have Coronavirus / COVID-19? No / Unsure 07/06/2021 2:18 PM MANAGER PULMONARY documented as of this encounter Functional Status [...] st Contact Info) Description 08/03/2024 2:00 PM MANAGER PULMONARY Appointment [facility] [id number] [place] [id number] Josué Cook MD [address] [id number] documented as of this encounter Goals Goal Patient Goal Type Associated Problems Recent Progress Patient-Stated? Author [facility] No Vannessa Blackwell RN documented as of this encounter Visit Diagnoses Not on filedocumented in this encounter Additional Health Concerns Assessment Noted Time PHQ-9 Depression Total Score: 0 07/06/20 21 4:06 PM MANAGER PULMONARY documented as of this encounter Care Teams Chief Operator Synthesis Relationship Specialty Start Date End Date Jared Abrams MD PCP - General 08/28/11 07/16/22 documented as of this encounter
--- OUTSIDE RECORDS SUMMARY | 2024-07-12 19:34 | XMS_ITS | Encounter Summary ---
Author Organization [facility] Address [address] [facility] [place] [address] [place] [address] Care Team Providers Care Director Work Name Role Phone Jared Abrams MD Primary Care Provider [phone] Encounter Details Date Type Department Care Team (Latest Contact Info) Description 05/11/2021 Travel Social History Tobacco Use Types Packs/Day [...] of Binge Drinking Not on file 02/26 Comments No Sex and Gender Information Value Date Recorded Sex Assigned at Not on file Legal Sex Female 4:50 PM CDT Gender Identity Not on file Sexual Orientation Not on file COVID-19 Exposure Response Date Recorded In the last month, have you been in contact with someone who was confirmed or suspected to have Coronavirus / COVID-19? 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 Author [facility] No Vannessa Blackwell RN documented as of this encounter Visit Diagnoses Not on filedocumented in this encounter Care Teams Director Work Relationship Specialty Start Date End Date Jared Abrams MD PCP - General 08/28/11 07/16/22 documented as of this encounter
--- OUTSIDE RECORDS SUMMARY | 2024-07-12 19:34 | XMS_ITS | Encounter Summary ---
Author Organization [facility] Address [address] [place] [address] [place] [address] Care Team Providers Care Dining Room Hostess Name Role Phone Jared Leyva MD Primary Care Provider [phone] Reason for Referral * Imaging (Urgent) - Closed Specialty Diagnoses / Procedures Referred By Angel braswell Referred To Contact RADIOLOGY Procedures US RETROPERITONEAL COMP US RENAL ABDOMEN DUPLEX COMP Cara Alvarado APRN 1 [place] [address] Phone: tel: [phone] fax: Referral ID Status Reason Start Date Expiration Date Visits Re quested Visits Authorized [id number] Closed 03/20/2020 04/20/2021 1 1 * Surgical (Routine) - Closed Specialty Diagnoses / Procedures Referred By Angel braswell Referred To Contact Procedures Case request operating room: COLONOSCOPY DIAGNOSTIC WITH/WITHOUT SPECIMEN BRUSH/WASH Indigo Parsons MD [address] [address] Phone: tel: fax: Referral ID Status Reason Start Date Expiration Date Visits Re quested Visits Authorized [id number] Closed 03/21/2020 04/21/2021 1 1 * Imaging (Emergency) - Closed Specialty Diagnoses / Procedures Referred By Contclemencia t Referred To Contact RADIOLOGY Procedures CT ABD+PEL WO CON Mahesh Nelson MD Phone: tel: fax: Referral ID Status Reason Start Date Expiration Date Visits Re quested Visits Authorized [id number] Closed 03/19/2020 04/19/2021 1 1 Reason for Visit * Reason Comments Diarrhea * Auth/Cert Specialty Diagnoses / Procedures Referred By Contclemencia t Referred To Contact Diagnoses Colitis JENNY (acute kidney injury) ([facility]/HCC) Colitis Referral ID Status Reason Start Date Expiration Date Visits Re quested Visits Authorized [id number] 1 1 Encounter Details Date Type Department Care Team (Late st Contact Info) Description 03/19/2020 8:33 PM CDT - 03/23/2020 2:40 PM CDT Hospital Encounter [facility] Med/Surg [address] [place], [place] [phone] Mahesh Nelson MD [address] [place] [address] [phone] Durga Parekh MD [address] [place] [address] [phone] Cara Alvarado APRN [address] [place], [place] [phone] (Work) Pollo Hogue APRN [place], [place] [id number] Madison Aaron MD [address] [place], [place] [phone] (Work) Diarrhea Discharge Disposition: Home or Self Care (Routine [...] Binge Drinking Not on file 02/26 Comments Unknown Sex and Gender Information Value Date Recorded Sex Assigned at Not on file Legal Sex Female 4:50 PM CDT Gender Identity Not on file Sexual Orientation Not on file COVID-19 Exposure Response Date Recorded In the last month, have you been in contact with someone who was confirmed or suspected to have Coronavirus / COVID-19? No / Unsure 03/19/2020 8:33 PM CDT documented as of this encounter Last Filed Vital Signs Vital Sign Reading Time Taken Comments Blood Pressure 123/75 03/23/2020 11:38 AM CDT Pulse 75 03/23/2020 11:38 AM CDT Temperature 37.5 ??C (99.5 ??F) 03/23/2020 11:38 AM C DT Respiratory Rate 16 03/23/2020 11:38 AM CDT Oxygen Saturation 98% 03/23/2020 11:38 AM CDT Inhaled Oxygen Concentration - - Weight 74.4 kg (164 lb 0.4 oz) 03/23/2020 4:45 A M CDT Height 154.9 cm (5' 1 ) 03/20/2020 12:15 AM CDT Body Mass Index 30.99 03/20/2020 12:15 AM CDT documented in this encounter Functional Status * Question Answer Date of Assessment Author Status Do you have serious difficulty walking or climbing stairs? Yes 03/23/2020 1:13 PM CDT Hannah Reagan RN Ac tive Do you have difficulty dressing or bathing? No 03/23/2020 1:13 PM CDT Hannah Reagan R N Active Because of a physical, mental, or emotional condition, do you have difficulty doing errands alone such as visiting a doctor's office or shopping? No 03/23/2020 1:13 PM CDT Hannah Reagan RN Act ander * RETIRED Are you deaf or do [...] as of this encounter Mental Status * Question Answer Entry Date Author Status Because of a physical, mental, or emotional condition, do you have serious difficulty concentrating, remembering, or making decisions? No 03/23/2020 1:13 PM CDT Hannah Reagan R N Active * Because of a physical, mental, or emotional condition, do you have serious difficulty concentrating, remembering, or making decisions? Answer Entry Date Author Status No 03/23/2020 1:13 PM CDT Hannah Reagan RN Active documented in this encounter Discharge Summaries * Pollo Hogue APRN - 03/23/2020 10:39 AM CDT Images from the original note were not included. Hospitalist Discharge Summary Patient ID: Radha Allen. female. 1945. Admit date: 03/19/2020 8:33 PM Discharge date and time: 03/23/20 Admitting Physician: Madison Aaron MD Attending Physician: Pollo Hogue APRN Primary Care Physician: JARED LEYVA MD Discharge Physician: Pollo Hogue NP Hospital Diagnosis: Principal Problem: Colitis SNOMED CT(R): COLITIS Admission Condition: poor Discharged Condition: Good Code Status: Full Code Indication for Admission: Chief Complaint Patient presents with ??? Diarrhea Readmission/Mortality Score at discharge: Low 0-28, Medium 29-58, High >59 LACE+ Score Readmission Score: 61 Male Patient: Urgent Admission: 15 Discharge Institution: Length of Stay: 5 Alternative Level of Care Status: 0 ED Visits in Previous 6 Months: 0 Elective Admission in Previous Year: 6 Comorbidity Score (by age & number of urgent admissions): 35 Hospital Course: Per H&P, Radha Allen is a 74-year-old female With past medical history significant for diabetes, hypertension, high cholesterol, and GERD to the emergency department with diarrhea that is been intermittent over the last several months. But over 2 days prior to presentation the diarrhea had worsened up to 5 loose stools over the course of the day. Did not increase amount of stools that she was having her daughter thought that she looked weaker and dehydrated. She has notfallen at home. She was describing some lower abdominal pressure and cramping associated with the stools. She denies any sharp or diffuse pain. She been urinating without any difficulties and have has not had any nausea or vomiting. ?? She had some stool samples performed by her primary care physician back in November that was negative for C. difficile And negative for Shiga toxin 1 and 2. No other enteric pathogens were isolated. Ms. Allen was admitted with suspected colitis. She was started on antibiotics. GI was consulted. Sheunderwent colonoscopy with biopsies on 03/22. Colonoscopy shows ulcerative colitis. She was started on Solu-Medrol. Blood cultures were obtained on admission. 1 out of 4 bottles positive for staph notstaph aureus. Believed to be contaminant. Was treated with IV vancomycin until ruled out. Repeat blood cultures with no growth. She also had JENNY on admission that resolved. Anemia work-up revealed iron deficiency. Started on ferrous sulfate. Now medically stable for discharge. See below for detailson course of hospitalization. Ulcerative Colitis Stool studies, neg C diff, others pending. IV antibiotics initially with Zosyn. 1 out of 4 blood cultures growing GPC bacteremia. Will DC Zosyn and continue with Vanc, Flagyl, and Rocephin. Leukocytosis resolved. Non toxic appearing Hydrate with IVF PT eval since weakness from dehydration--> ambulating independently in room. No need for PT GI consulted. Appreciate recommendation. Colonoscopy on 03/22 shows UC. Biopsies taken. Will start solumedrol. Continue prednisone taper. Follow-up with GI outpatient. ?? Bactermia suspect contaminate 1/2 BC +GPC resembling staph. Increased antibiotics as above. 1 out of 4 bottles with staph not staph aureus. This is a contaminant. Repeat blood culture no growth We will not continue antibiotics at discharge. ?? JENNY Cr 2.27 on admission, no prior labs to compare Prerenal 2/2 dehydration. Does take naproxen at home, will hold. IVF Avoid nephrotoxic agents Strict I/O Monitor electrolytes, K+ was 5.3 on admission. Now normalized. Resolved. Recheck BMP in 1 week. Follow-up with PCP. Consider discontinuing naproxen if recurs. ?? Anemia, iron deficiency No prior labs to compare. Hgb 9.5 on admission, trended down to 7.8 on 03/20, suspect dilutional from IVF Low iron, iron sat, TIBC, and folate Will hold off on iron infusion for now while receiving IV antibiotics. Add oral ferrous sulfate at discharge. Repeat CBC in 1 week ?? Incidental finding on CT:?? Punctate calcification and small hyperdense cyst right kidney 10 mm as well as 14 mm cystic lesion left kidney which cannot be appropriately characterize on thisexam, consider contrast CT or ultrasound to further evaluate. ?? Will order a left renal US-->multiple cyst within left and right kidney. The lesion in the mid portions of the left kidney corresponds with CT abnormality, there is no vascularity. Suspect cyst. F/u with PCP ?? Hypertension Holding home medications; BP trending soft; IVF hydration?? Continue with gentle IV bolus PRN?? BP improved, restarted meds. ?? HLD Statin ?? Diabetes; oral med controlled Resume home meds at discharge. Significant Diagnostic Studies: Recent Labs Lab 03/19/20 2045 03/20/20 0530 03/21/20 1209 03/22/20 0655 03/23/20 0620 WBC 18.1* 11.2* 7.3 6.6 8.6 RBC 3.78* 3.10* 3.22* 3.12* 2.97* HGB 9.5* 7.8* 8.2* 7.8* 7.7* HCT 31.0* 25.6* 26.6* 25.2* 24.1* MCV 82.0 82.6 82.6 80.8 81.1 MCH 25.1* 25.2* 25.5 25.0* 25.9 MCHC 30.6* 30.5* 30.8* 31.0 32.0 PLT 476* 336 345 321 342 RDW 16.0* 16.1* 16.7* 16.5* 16.6* MPV 8.7* 9.0* 8.6* 8.0* 8.4* PERNEU -- 70.7 60.5 53.5 56.9 PERLYM -- 15.5* 23.1 29.5 27.2 PERMON -- 11.5 11.5 11.0 11.2 LYMC 2.35 1.74 1.68 1.95 2.35 Recent Labs Lab 03/19/20204403/20/20 0530 03/21/20 1209 03/22/20 0655 03/23/20 0620 NA 135* 140 141 144 143 K 5.3* 5.0 4.5 4.1 3.7 CL 102 110* 111* 112* 111* CO2 20.2* 20.2* 19.7* 24.4 23.4 AGAP 12.8 9.8 10.3 7.6 8.6 BUN 28* 24* 9 5* 3* CR 2.27* 1.59* 0.84 0.82 1.07* BUNCREATININ 12.3 15.1 10.7 6.1 2.8* GFRNON 20* 31* 68* 70* 50* GFR 24* 36* 78* 81* 58* GLU 107* 74 100* 88 103* CA 8.4* 7.4* 7.2* 7.0* 7.1* TP 7.4 -- -- -- -- ALB 2.5* -- -- -- -- TBIL 0.4 -- -- -- -- ALKP 103 -- -- -- -- AST 21 -- -- -- -- ALT 16 -- -- -- -- Recent Labs Lab 03/20/20 0530 CHOL 51 TRI 47 HDL 36* LDL 6 No results for input(s): APTT, INR, PTT in the last 168 hours. No results for input(s): TROP, TROPIWB, CKMB, CPK in the last 168 hours. Recent Labs Lab 03/19/202044 LACTICACID 1.5 No results for input(s): PH, PCO2, PO2, G0AEZMWORPOI, BICARBWB, BASEDEFICIT, BASEEXCESS in the [id number] hours. No results found for this or any previous visit. Radiology Reports : Results for orders placed or performed during the hospital encounter of 03/19/20 ECG 12 lead ?? Narrative ?? [facility] Test Date: 2020-03-19 Pat Name: RADHA ALLEN Department: Room: 120 Gender: Female Template Inspector: : 1945 Requested By: MAHESH NELSON Order Number: [id number] Reading MD: Keven Gunter Measurements Intervals Alpine Rate: 78 P: 53 PA: 137 QRS: 22 QRSD: 87 T: 12 QT: 355 QTc: 405 Interpretive Statements SINUS RHYTHM LOW QRS VOLTAGE IN PRECORDIAL LEADS No previous ECG available for comparison ?? CT ABD+PEL WO CON [[id number]] Collected: 03/20/20825 ?? Updated: 03/20/20834 Narrative: ?? IMAGING STUDIES: ??CT ABD+PEL WO CON ? DATE: ??03/19/2020 9:23 PM ?? COMPARISON STUDIES: No previous available. ? CLINICAL HISTORY: ??low abd pain, intermittent diarrhea for weeks, worse x 2 days Abdominal pain, unspecified ? . ?? TECHNIQUE: ??Helical axial images were acquired from the lung bases to symphysis pubis. ??Sagittal and coronal reconstructions were obtained. Radiation dose reduction technique was utilized. ?? FINDINGS AND IMPRESSION (Limited exam due to the lack of intravenous contrast administration and motion artifact): ?? LOWER CHEST: ?? 1. ??Lungs: Lungs bases are clear. No pleural effusion. ?? 2. ??Visible mediastinum: Cardiomegaly.. ?? ABDOMEN: ?? 1. ??Liver: Hepatic steatosis. ?? 2. ??Gallbladder: Normal in appearance. Noncalcified gallstones might not be visible on CT.. ?? 3. ??Spleen: No lesions, no splenomegaly. ?? 4. ??Pancreas: No focal lesions. ?? 5. ??Adrenal glands: No focal lesions. ?? 6. ??Kidneys: Punctate calcification and small hyperdense cyst right kidney 10 mm as well as 14 mm cystic lesion left kidney which cannot be appropriately characterize on this exam, consider contrast CT or ultrasound to further evaluate. ? No hydroureter or obvious distal stones. ?? 7. ??Retroperitoneal space: No lymphadenopathy or masses. No mesenteric lymphadenopathy or edema. ?? 8. ??Stomach and bowel: Nonobstructive pattern. No free air. ?? 9. ??Aorta: No significant atherosclerotic disease or aneurysmal dilation. ? PELVIS: ?? 1. ??Appendix: Not pathologically distended. ?? 2. ??Colon and rectum: Not obstructed. No acute diverticulitis. Dr. Moore concern about the possibility of mild nonspecific colitis in his preliminary report. ?? 3. ??Uterus and adnexa: No obvious masses. ?? 4. ??Urinary bladder: No stones or abnormal wall thickening. ?? 5. ??Pelvic space: Obscured by artifact. ?? BONES AND OTHER INCIDENTAL FINDINGS: ?? 1. ??Bones: Total left hip arthroplasty, protrusio acetabuli. Right hip degenerative changes and degenerative changes of the lumbar spine, scoliosis. Degenerative changes sacroiliac joints. ?? Discharge Exam: Filed Vitals: 03/22/207 03/23/20 0044 03/23/20 0445 03/23/20 0743 BP: 145/63 127/71 127/55 (!) 156/63 Pulse: 90 80 82 75 Resp: 18 18 18 18 Temp: 99 ??F (37.2 ??C) 98.2 ??F (36.8 ??C) 97.9 ??F (36.6 ??C) 98.7 ??F (37.1 ??C) TempSrc: Temporal Tympanic Tympanic Tympanic SpO2: 98% 100% 100% 100% Weight: 74.4 kg (164 lb 0.4 oz) Height: Physical Exam: GEN: In no acute distress. Breathing comfortably on room air. HEENT: Clear conjunctiva. Mucous membranes moist. CHEST: CTA, no wheezes or crackles. CVS: RRR, no MRG. Abd: Soft, NT. Ext: No edema. SKIN: Warm, dry. No rashes or ulcers. PSYCH: Appropriate affect NEURO: Alert and oriented. No focal deficits. Discharge Medications: Medication List START taking these medications ferrous sulfate EC 324 (65 Fe) MG tablet Take 1 tablet (324 mg total) by mouth daily with breakfast. HYDROcodone-acetaminophen 5-325 MG tablet Commonly known as: NORCO Take 1 tablet by mouth every 6 (six) hours as needed for Pain. Indications: Acute Pain < 3 Day Supply predniSONE 10 mg tablet Commonly known as: DELTASONE Take 4 tablets (40 mg total) by mouth daily for 3 days, THEN 3 tablets (30 mg total) daily for 3 days, THEN 2 tablets (20 mg total) daily for 3 days, THEN 1 tablet (10 mg total) daily for 3 days. Start taking on: March 23, 2020 CONTINUE taking these medications amLODIPine 5 MG tablet Commonly known as: NORVASC aspirin EC 81 MG tablet Commonly known as: ECOTRIN cholestyramine 4 G packet Commonly known as: QUESTRAN diphenoxylate-atropine 2.5-0.025 MG tablet Commonly known as: LOMOTIL metFORMIN 500 MG tablet Commonly known as: GLUCOPHAGE metoprolol tartrate 50 MG tablet Commonly known as: LOPRESSOR * naproxen sodium 220 MG tablet Commonly known as: ANAPROX * naproxen sodium 220 MG tablet Commonly known as: ANAPROX pantoprazole EC 40 MG tablet Commonly known as: PROTONIX pravastatin 40 MG tablet Commonly known as: PRAVACHOL vitamin B-12 500 MCG tablet Commonly known as: CYANOCOBALAMIN * This list has 2 medication(s) that are the same as other medications prescribed for you. Read thedirections carefully, and ask your doctor or other care provider to review them with you. Where to Get Your Medications These medications were sent to [id number] - [place], [place] - [address] [place] [address] [address] [facility] [id number] ?? ferrous sulfate EC 324 (65 Fe) MG tablet ?? predniSONE 10 mg tablet You can get these medications from any pharmacy Bring a paper prescription for each of these medications ?? HYDROcodone-acetaminophen 5-325 MG tablet Disposition: Home with self care Time Spent on Discharge >30 minutes Signed: POLLO HOGUE APRN Cosigned by Ayan Addison MD at 03/23/2020 4:06 PM CDT Associated attestation - Ayan Addison MD - 03/23/2020 4:06 PM CDT Patient was seen and examined separately from the Advanced Provider, I reviewed the chart and agreewith the orders and assessment and plan as documented. GEN Tired, Speaking in complete sentences HEENT ALKA, MMM CHEST Dec BS in the bases, no wheezes or crackles CVS RRR, no MRG Abd S, NT, nl BS Ext tr edema Psych Flat affect, nl mood Neuro CNII-XII grossly intact Patient's is doing much better in terms of abdominal pain, now tolerating p.o. Stable for dischargeto home with steroid taper. Blood cultures likely contaminant. documented in this encounter Discharge Instructions * Discharge Instructions* Hannah Reagan RN - 03/23/2020 1:16 PM CDT * Attachments The following attachments cannot be sent through Care Everywhere. * Ulcerative Colitis Discharge Instructions (Omani) * Diet for Ulcerative Colitis (Omani) documented in this encounter Medications at Time of Discharge amLODIPine 5 MG tablet Take 5 mg by mouth daily. aspirin EC 81 MG tablet Take 81 mg by mouth nightly. diphenoxylate-at ropine 2.5-0.025 MG tablet Take 1 [...] Take by mouth 2 (two) times daily. pantoprazole EC 40 MG tablet Take 40 mg by mouth nightly. pravastatin 40 MG tablet Take 40 mg by mouth nightly at bedtime. vitamin B-12 500 MCG tablet Take 1,000 mcg by mouth daily. Taking sublinguial cholestyramine 4 G packet Take 4 g by mouth 2 (two) times daily with meals. 0 HYDROcodone-acet aminophen 5-325 MG tabletIndication s:Acute Pain < 3 Day Supply Take 1 tablet by mouth every 6 (six) hours as needed for Pain. Indications: Acute Pain < 3 Day Supply 12 tablet 03/23/2020 0 naproxen sodium 220 MG tablet Take 440 mg by mouth every morning. 0 naproxen sodium 220 MG tablet Take 220 mg by mouth every evening. 0 predniSONE 10 mg tablet Take 4 tablets (40 mg total) by mouth daily for 3 days, THEN 3 tablets (30 mg total) daily for 3 days, THEN 2 tablets (20 mg total) daily for 3 days, THEN 1 tablet (10 mg total) daily for 3 days. 30 tablet 03/23/2020 0 documented as of this encounter Progress Notes * Zhanna Mac RN - 03/23/2020 11:11 AM CDT [facility] for discharge planning @1100 with HOSPITALIST, SMALL PARTS ASSEMBLER, CM, UR, PASTORAL CARE, PHARMACY, CARDIOPULMONARY, ADOBE BLOCK MAKER, HH. F/u with Dr. Parsons (GI) after discharge. Expect to DC today Refused HH * Ayan Addison MD - 03/22/2020 3:26 PM CDT Hospitalist Progress Note Radha Allen is a 74-year-old female patient. Subjective: Ms. Allen was evaluated after her colonoscopy. She is feeling well. She is hungry and hoping to eat. Current Facility-Administered Medications Medication Dose Route Frequency Provider Last Rate Last Dose ??? acetaminophen (TYLENOL) tablet 650 mg 650 mg Oral Q4H PRN Madison Aaron MD ??? aspirin EC (ECOTRIN) tablet 81 mg 81 mg Oral nightly Madison Aaron MD 81 mg at 03/21/202021 ??? cefTRIAXone (ROCEPHIN) 1 g in sterile water 10 mL IV 1 g Intravenous Q24H Darah R Dodt, RAG INSPECTOR 1 g at 03/22/20 1053 ??? enoxaparin (LOVENOX) 40 MG/0.4ML syringe 40 mg 40 mg Subcutaneous Q24H Darah R Kristent, RAG INSPECTOR Stopped at 03/22/20 0918 ??? HYDROcodone-acetaminophen (NORCO) 5-325 MG tablet 1 tablet 1 tablet Oral Q4H PRN Madison Aaron MD ??? lactated ringers infusion Intravenous Continuous Indigo Parsons MD Stopped at 03/22/20 1045 ??? methylPREDNISolone sodium succinate (SOLU-Medrol) injection 40 mg 40 mg Intravenous Daily DarahR John, RAG INSPECTOR 40 mg at 03/22/20 1438 ??? metroNIDAZOLE (FLAGYL) IVPB 500 mg 500 mg Intravenous Q8H Darmaribel R Kristent, RAG INSPECTOR Stopped at 03/22/20 1153 ??? morphine injection 2 mg 2 mg Intravenous Q2H PRN Madison Aaron MD ??? naLOXone (NARCAN) injection 0.4 mg 0.4 mg Intravenous PRN Madison Aaron MD ??? ondansetron (ZOFRAN) injection 4 mg 4 mg Intravenous Q8H PRN Madison Aaron MD ??? pantoprazole EC (PROTONIX) tablet 40 mg 40 mg Oral Nightly at bedtime Madison Aaron MD 40 mg at 03/21/202021 ??? pharmacy to dose vancomycin placeholder Intravenous See Admin Instructions Ruth Sharp MD ??? pravastatin (PRAVACHOL) tablet 40 mg 40 mg Oral Nightly at bedtime Madison Aaron MD 40 mg at 03/21/202021 ??? sodium chloride 0.9% infusion Intravenous Continuous Darah R Kristent, RAG INSPECTOR 100 mL/hr at 03/22/20 1053 ??? [START ON 03/23/2020] vancomycin (VANCOCIN) 1,000 mg in sodium chloride 0.9 % 250 mL IVPB 1,000 mg Intravenous Q18H Pollo Hogue APRN ??? vitamin B-12 (CYANOCOBALAMIN) tablet 1,000 mcg 1,000 mcg Oral Daily Madison Aaron MD 1,000 mcg at 03/22/20 1438 No Known Allergies ROS: 14 point ROS Negative except for as noted in HPI. Objective: Filed Vitals: 03/22/20 1100 03/22/20 1119 03/22/20 1130 03/22/20 1200 BP: 138/62 124/71 121/81 141/68 Pulse: 81 82 83 84 Resp: 18 18 18 18 Temp: 98.6 ??F (37 ??C) 98.6 ??F (37 ??C) 98.5 ??F (36.9 ??C) 98.5 ??F (36.9 ??C) TempSrc: Tympanic Tympanic Tympanic Tympanic SpO2: 93% 100% 97% 97% Weight: Height: Physical Exam: GEN: In no acute distress. Breathing comfortably on room air. HEENT: Clear conjunctiva. Mucous membranes moist. CHEST: CTA, no wheezes or crackles. CVS: RRR, no MRG. Abd: Soft, NT. Ext: No edema. SKIN: Warm, dry. No rashes or ulcers. PSYCH: Appropriate affect NEURO: Alert and oriented. No focal deficits. LABS: Recent Labs Lab 03/20/20 0530 03/21/20 1209 03/22/20 0655 NA 140 141 144 K 5.0 4.5 4.1 CL 110* 111* 112* CO2 20.2* 19.7* 24.4 AGAP 9.8 10.3 7.6 BUN 24* 9 5* CR 1.59* 0.84 0.82 BUNCREATININ 15.1 10.7 6.1 GFRNON 31* 68* 70* GFR 36* 78* 81* GLU 74 100* 88 CA 7.4* 7.2* 7.0* Recent Labs Lab 03/20/20 0530 03/21/20 1209 03/22/20 0655 WBC 11.2* 7.3 6.6 RBC 3.10* 3.22* 3.12* HGB 7.8* 8.2* 7.8* HCT 25.6* 26.6* 25.2* MCV 82.6 82.6 80.8 MCH 25.2* 25.5 25.0* MCHC 30.5* 30.8* 31.0 PLT 336 345 321 RDW 16.1* 16.7* 16.5* MPV 9.0* 8.6* 8.0* PERNEU 70.7 60.5 53.5 PERLYM 15.5* 23.1 29.5 PERMON 11.5 11.5 11.0 LYMC 1.74 1.68 1.95 Imaging & Other Studies: No results found. Results for orders placed or performed during the hospital encounter of 03/19/20 ECG 12 lead Narrative [facility] Test Date: 2020-03-19 Pat Name: RADHA ALLEN Department: Room: 120 Gender: Female Template Inspector: : 1945 Requested By: MAHESH NELSON Order Number: [id number] Reading MD: Keven Gunter Measurements Intervals Alpine Rate: 78 P: 53 PA: 137 QRS: 22 QRSD: 87 T: 12 QT: 355 QTc: 405 Interpretive Statements SINUS RHYTHM LOW QRS VOLTAGE IN PRECORDIAL LEADS No previous ECG available for comparison CT ABD+PEL WO CON [[id number]] Collected: 03/20/20825 ?? Updated: 03/20/20834 Narrative: ?? IMAGING STUDIES: ??CT ABD+PEL WO CON ? DATE: ??03/19/2020 9:23 PM ?? COMPARISON STUDIES: No previous available. ? CLINICAL HISTORY: ??low abd pain, intermittent diarrhea for weeks, worse x 2 days Abdominal pain, unspecified ? . ?? TECHNIQUE: ??Helical axial images were acquired from the lung bases to symphysis pubis. ??Sagittal and coronal reconstructions were obtained. Radiation dose reduction technique was utilized. ?? FINDINGS AND IMPRESSION (Limited exam due to the lack of intravenous contrast administration and motion artifact): ?? LOWER CHEST: ?? 1. ??Lungs: Lungs bases are clear. No pleural effusion. ?? 2. ??Visible mediastinum: Cardiomegaly.. ?? ABDOMEN: ?? 1. ??Liver: Hepatic steatosis. ?? 2. ??Gallbladder: Normal in appearance. Noncalcified gallstones might not be visible on CT.. ?? 3. ??Spleen: No lesions, no splenomegaly. ?? 4. ??Pancreas: No focal lesions. ?? 5. ??Adrenal glands: No focal lesions. ?? 6. ??Kidneys: Punctate calcification and small hyperdense cyst right kidney 10 mm as well as 14 mm cystic lesion left kidney which cannot be appropriately characterize on this exam, consider contrast CT or ultrasound to further evaluate. ? No hydroureter or obvious distal stones. ?? 7. ??Retroperitoneal space: No lymphadenopathy or masses. No mesenteric lymphadenopathy or edema. ?? 8. ??Stomach and bowel: Nonobstructive pattern. No free air. ?? 9. ??Aorta: No significant atherosclerotic disease or aneurysmal dilation. ? PELVIS: ?? 1. ??Appendix: Not pathologically distended. ?? 2. ??Colon and rectum: Not obstructed. No acute diverticulitis. Dr. Moore concern about the possibility of mild nonspecific colitis in his preliminary report. ?? 3. ??Uterus and adnexa: No obvious masses. ?? 4. ??Urinary bladder: No stones or abnormal wall thickening. ?? 5. ??Pelvic space: Obscured by artifact. ?? BONES AND OTHER INCIDENTAL FINDINGS: ?? 1. ??Bones: Total left hip arthroplasty, protrusio acetabuli. Right hip degenerative changes and degenerative changes of the lumbar spine, scoliosis. Degenerative changes sacroiliac joints. ? Assessment/Plan: Ulcerative Colitis Stool studies, neg C diff, others pending. IV antibiotics initially with Zosyn, now with GPC bacteremia. Will DC Zosyn and continue with Vanc,Flagyl, and Rocephin. Leukocytosis resolved. Non toxic appearing Hydrate with IVF PT eval since weakness from dehydration--> ambulating independently in room. No need for PT GI consulted. Appreciate recommendation. Colonoscopy on 03/22 shows UC. Biopsies taken. Will start solumedrol. Bactermia suspect contaminate 1/2 BC +GPC resembling staph. Increased antibiotics as above. Suspect contamination, but will treat until ruled out. Repeat blood cultures pending. JENNY Cr 2.27 on admission, no prior labs to compare Prerenal 2/2 dehydration. Does take naproxen at home, will hold. IVF Avoid nephrotoxic agents Strict I/O Monitor electrolytes, K+ was 5.3 on admission. Now normalized. Resolved. Anemia, iron deficiency No prior labs to compare. Hgb 9.5 on admission, trended down to 7.8 on 03/20, suspect dilutional from IVF Low iron, iron sat, TIBC, and folate Will consider iron infusion tomorrow. Will hold off for now while receiving IV antibiotics. Add oral ferrous sulfate at discharge. Incidental finding on CT: Punctate calcification and small hyperdense cyst right kidney 10 mm as well as 14 mm cystic lesion left kidney which cannot be appropriately characterize on thisexam, consider contrast CT or ultrasound to further evaluate. ?? Will order a left renal US-->multiple cyst within left and right kidney. The lesion in the mid portions of the left kidney corresponds with CT abnormality, there is no vascularity. Suspect cyst. F/u with PCP ?? Hypertension Holding home medications; BP trending soft; IVF hydration Continue with gentle IV bolus PRN BP improving, will restart meds tonight. ?? HLD Statin ?? Diabetes; oral med controlled Holding oral meds; placed on SSI. - DVT prophylaxis: Lovenox - Code status: Full POLLO HOGUE, RAG INSPECTOR 03/22/2020 Patient was seen and examined separately from the Advanced Provider, I reviewed the chart and agreewith the orders and assessment and plan as documented. GEN Tired, Speaking in complete sentences HEENT PERRLA, MMM CHEST Dec BS in the bases, no wheezes or crackles CVS RRR, no MRG Abd S, NT, nl BS Ext tr edema Psych Flat affect, nl mood Neuro CNII-XII grossly intact Very pleasant 74-year-old female due for colonoscopy later today. 1 out of 2 cultures growing gram-positive cocci. Suspect contaminant continue Follow-up cultures. * Vannessa Blackwell RN - 03/22/2020 12:51 PM CDT INTERDISCIPLINARY CARE CONFERENCE: TEAM ATTENDANCE: CASE MANAGEMENT, UR, NURSING, PT, OT, CARDIOPULMONARY, ADOBE BLOCK MAKER, HOSPITALIST HOME HEALTH,PASTORAL CARE, PHARMACY Meeting held at 1100. ADOBE BLOCK MAKER REPORTS BLOOD CULTURE POSITIVE. WILL NOT DC TODAY. COLONOSCOPY TODAY. * Camille Gomez PharmD - 03/22/2020 9:03 AM CDT Vancomycin Protocol: Pharmacokinetic note Radha Allen is a 74-year-old female for which pharmacy has been consulted to dose vancomycin forbacteremia. Goal trough is 15 - 20 mcg/mL. Today is day 1 of therapy. Other antibiotics being used include zosyn. Relevant allergies: NKDA Height: 5' 1 (1.549 m) Weight: 73.9 kg (162 lb 14.7 oz) Today's labs and vitals: WBC Date Value Ref Range Status 03/22/2020 6.6 4.4 - 11.0 x10'3/uL Final CREATININE S/P/B Date Value Ref Range Status 03/22/2020 0.82 0.55 - 1.02 MG/DL Final CrCl = estimated creatinine clearance is 53.6 mL/min (based on SCr of 0.82 mg/dL). Temp Readings from Last 1 Encounters: 03/22/20 98.7 ??F (37.1 ??C) (Tympanic) Cultures: Date Drawn Site Organism Pertinent Sensitivity 03/20 blood 1/2 GPC resembling staph According to the patient's age, weight, renal function, and level, vancomycin will be dosed at 1000mg every 18 hours with a trough level on 03/24 at 1100 prior to the 4th dose. Pharmacy will monitor dosing, labs, and cultures daily adjusting the dose/regimen as clinically appropriate. Thank you for the consult. CAMILLE GOMEZ PharmD 03/22/2020 9:00 AM * Vannessa Blackwell RN - 03/22/2020 8:48 AM CDT 03/22/20 0848 Discharge Planning Living Arrangements Alone Support Systems Children Type of Residence Private residence Assistance Needed No IV Infusion at discharge No Home Care Services No Patient expects to be discharged to: Home DENIES NEED FOR HOME HEALTH ARE OTHER SERVICES. PLANS TO DC HOME IF COLONOSCOPY NEGATIVE TODAY. * Vannessa Blackwell RN - 03/22/2020 8:47 AM CDT IMPORTANT MESSAGE FROM MEDICARE GIVEN TO PATIENT . SIGNED BY PATIENT. VOICED UNDERSTANDING. COPY GIVEN TO PATIENT. DISCUSSED POSSIBLE DC TODAY. PATIENT IN AGREEMENT WITH PLAN. DENIES NEED FOR HOME HEALTH ARE OTHER SERVICES. * Martina Jiménez RN - 03/21/2020 5:37 PM CDT Problem: Diarrhea Goal: Bowel elimination within specified parameters Outcome: Progressing * Pollo Hogue APRN - 03/21/2020 2:01 PM CDT Hospitalist Progress Note Radha Allen is a 74-year-old female patient. Subjective: Ms. Allen is ambulating in her room on exam this morning. She has had 4 loose stools this morning. Denies abdominal pain. No SOB or CP. Plans for colonoscopy in AM. Current Facility-Administered Medications Medication Dose Route Frequency Provider Last Rate Last Dose ??? acetaminophen (TYLENOL) tablet 650 mg 650 mg Oral Q4H PRN Madison Aaron MD ??? aspirin EC (ECOTRIN) tablet 81 mg 81 mg Oral nightly Madison Aaron MD 81 mg at 03/20/202021 ??? enoxaparin (LOVENOX) 30 MG/0.3ML syringe 30 mg 30 mg Subcutaneous Q24H Durga Parekh MD 30 mgat 03/21/20 0906 ??? HYDROcodone-acetaminophen (NORCO) 5-325 MG tablet 1 tablet 1 tablet Oral Q4H PRN Madison Aaron MD ??? morphine injection 2 mg 2 mg Intravenous Q2H PRN Madison Aaron MD ??? naLOXone (NARCAN) injection 0.4 mg 0.4 mg Intravenous PRN Madison Aaron MD ??? ondansetron (ZOFRAN) injection 4 mg 4 mg Intravenous Q8H PRN Madison aAron MD ??? pantoprazole EC (PROTONIX) tablet 40 mg 40 mg Oral Nightly at bedtime Madison Aaron MD 40 mg at 03/20/202021 ??? piperacillin-tazobactam (ZOSYN) 3.375 g in sodium chloride 0.9 % 50 mL IVPB 3.375 g [id number] Durga Parekh MD 12.5 mL/hr at 03/21/20 1246 3.375 g at 03/21/20 1246 ??? polyethylene glycol (GoLYTELY) solution 4,000 mL 4,000 mL Oral PRN Indigo Parsons MD ??? pravastatin (PRAVACHOL) tablet 40 mg 40 mg Oral Nightly at bedtime Madison Aaron MD 40 mg at 03/20/202021 ??? sodium chloride 0.9% infusion Intravenous Continuous Pollo Hogue APRN 100 mL/hr at 03/21/20 1245 ??? vitamin B-12 (CYANOCOBALAMIN) tablet 1,000 mcg 1,000 mcg Oral Daily Madison Aaron MD 1,000 mcg at 03/21/20 0907 No Known Allergies ROS: 14 point ROS Negative except for as noted in HPI. Objective: Filed Vitals: 03/21/20 0343 03/21/20 0715 03/21/20 0955 03/21/20 1125 BP: 111/50 98/46 111/41 107/89 Pulse: 78 82 97 Resp: 18 19 25 Temp: 99.3 ??F (37.4 ??C) 98.7 ??F (37.1 ??C) 98.8 ??F (37.1 ??C) TempSrc: Tympanic Tympanic Tympanic SpO2: 97% 100% 100% Weight: 70.3 kg (154 lb 15.7 oz) Height: Physical Exam: GEN: In no acute distress. Breathing comfortably on room air. HEENT: Clear conjunctiva. Mucous membranes moist. CHEST: CTA, no wheezes or crackles. CVS: RRR, no MRG. Abd: Soft, NT. Ext: No edema. SKIN: Warm, dry. No rashes or ulcers. PSYCH: Appropriate affect NEURO: Alert and oriented. No focal deficits. LABS: Recent Labs Lab 03/19/20204403/20/2052903/21/20 1209 NA 135* 140 141 K 5.3* 5.0 4.5 CL 102 110* 111* CO2 20.2* 20.2* 19.7* AGAP 12.8 9.8 10.3 BUN 28* 24* 9 CR 2.27* 1.59* 0.84 BUNCREATININ 12.3 15.1 10.7 GFRNON 20* 31* 68* GFR 24* 36* 78* GLU 107* 74 100* CA 8.4* 7.4* 7.2* Recent Labs Lab 03/19/20204403/20/2052903/21/20 1209 WBC 18.1* 11.2* 7.3 RBC 3.78* 3.10* 3.22* HGB 9.5* 7.8* 8.2* HCT 31.0* 25.6* 26.6* MCV 82.0 82.6 82.6 MCH 25.1* 25.2* 25.5 MCHC 30.6* 30.5* 30.8* PLT 476* 336 345 RDW 16.0* 16.1* 16.7* MPV 8.7* 9.0* 8.6* PERNEU -- 70.7 60.5 PERLYM -- 15.5* 23.1 PERMON -- 11.5 11.5 [facility] 2.35 1.74 1.68 Imaging & Other Studies: No results found. Results for orders placed or performed during the hospital encounter of 03/19/20 ECG [address] [facility] Test Date: 2020-03-19 Pat Name: RADHA ALLEN Department: Room: 120 Gender: Female Template Inspector: : 1945 Requested By: MAHESH NELSON Order Number: [id number] Reading MD: Keven Gunter Measurements Intervals [place] Rate: 78 P: 53 PA: 137 QRS: 22 QRSD: 87 T: 12 QT: 355 QTc: 405 Interpretive Statements SINUS RHYTHM LOW QRS VOLTAGE IN PRECORDIAL LEADS No previous ECG available for comparison CT ABD+PEL WO CON [[id number]] Collected: 03/20/20825 ?? Updated: 03/20/20834 Narrative: ?? IMAGING STUDIES: ??CT ABD+PEL WO CON ? DATE: ??03/19/2020 9:23 PM ?? COMPARISON STUDIES: No previous available. ? CLINICAL HISTORY: ??low abd pain, intermittent diarrhea for weeks, worse x 2 days Abdominal pain, unspecified ? . ?? TECHNIQUE: ??Helical axial images were acquired from the lung bases to symphysis pubis. ??Sagittal and coronal reconstructions were obtained. Radiation dose reduction technique was utilized. ?? FINDINGS AND IMPRESSION (Limited exam due to the lack of intravenous contrast administration and motion artifact): ?? LOWER CHEST: ?? 1. ??Lungs: Lungs bases are clear. No pleural effusion. ?? 2. ??Visible mediastinum: Cardiomegaly.. ?? ABDOMEN: ?? 1. ??Liver: Hepatic steatosis. ?? 2. ??Gallbladder: Normal in appearance. Noncalcified gallstones might not be visible on CT.. ?? 3. ??Spleen: No lesions, no splenomegaly. ?? 4. ??Pancreas: No focal lesions. ?? 5. ??Adrenal glands: No focal lesions. ?? 6. ??Kidneys: Punctate calcification and small hyperdense cyst right kidney 10 mm as well as 14 mm cystic lesion left kidney which cannot be appropriately characterize on this exam, consider contrast CT or ultrasound to further evaluate. ? No hydroureter or obvious distal stones. ?? 7. ??Retroperitoneal space: No lymphadenopathy or masses. No mesenteric lymphadenopathy or edema. ?? 8. ??Stomach and bowel: Nonobstructive pattern. No free air. ?? 9. ??Aorta: No significant atherosclerotic disease or aneurysmal dilation. ? PELVIS: ?? 1. ??Appendix: Not pathologically distended. ?? 2. ??Colon and rectum: Not obstructed. No acute diverticulitis. Dr. Moore concern about the possibility of mild nonspecific colitis in his preliminary report. ?? 3. ??Uterus and adnexa: No obvious masses. ?? 4. ??Urinary bladder: No stones or abnormal wall thickening. ?? 5. ??Pelvic space: Obscured by artifact. ?? BONES AND OTHER INCIDENTAL FINDINGS: ?? 1. ??Bones: Total left hip arthroplasty, protrusio acetabuli. Right hip degenerative changes and degenerative changes of the lumbar spine, scoliosis. Degenerative changes sacroiliac joints. ? Assessment/Plan: Colitis Stool studies, neg C diff, others pending. IV antibiotics with Zosyn Bowel rest, tolerating Leukocytosis resolved. Non toxic appearing Hydrate with IVF PT eval since weakness from dehydration, ambulating independently in room GI consulted. Appreciate recommendation. Plans for colonoscopy tomorrow. JENNY Cr 2.27 on admission, no prior labs Prerenal 2/2 dehydration. Does take naproxen at home, will hold. IVF Avoid nephrotoxic agents Strict I/O Monitor electrolytes, K+ was 5.3 on admission. Now normalized. Resolved. Anemia No prior labs to compare. Hgb 9.5 on admission, trended down to 7.8 on 03/20, suspect dilutional from IVF Improving. Consider further work-up if warranted. Incidental finding on CT: Punctate calcification and small hyperdense cyst right kidney 10 mm as well as 14 mm cystic lesion left kidney which cannot be appropriately characterize on thisexam, consider contrast CT or ultrasound to further evaluate. ?? Will order a left renal US-->multiple cyst within left and right kidney. The lesion in the mid portions of the left kidney corresponds with CT abnormality, there is no vascularity. Suspect cyst. F/u with PCP ?? Hypertension Holding home medications; BP trending soft; IVF hydration Continue with gentle IV bolus PRN ?? HLD Statin ?? Diabetes; oral med controlled Holding oral meds; placed on SSI. - DVT prophylaxis: Lovenox - Code status: Full POLLO HOGUE APRN 03/21/2020 Cosigned by Durga Parekh MD at 03/21/2020 10:27 PM CDT * WILLEM Bundy - 03/21/2020 12:43 PM CDT Interdisciplinary Team conference held. In attendance; case management, UR, nursing, PT, OT, cardiopulmonary, ADOBE BLOCK MAKER, Hospitalist, Pastoral Care, and Pharmacy. Meeting held at 11:00. Plan for colonoscopy tomorrow. * Vannessa Blakcwell RN - 03/20/2020 2:10 PM CDT INTERDISCIPLINARY CARE CONFERENCE: TEAM ATTENDANCE: CASE MANAGEMENT, UR, NURSING, PT, OT, CARDIOPULMONARY, ADOBE BLOCK MAKER, HOSPITALIST HOME HEALTH,PASTORAL CARE, PHARMACY Meeting held at 1100.WILL GET STOOL FOR O AND P. NO DISCHARGE PLANS AT THIS TIME * Vannessa Blackwell RN - 03/20/2020 2:08 PM CDT 03/20/20 1035 Referral Data Referral Reason Discharge Planning Source of Information Patient Patient Information OB Patient < 19 yrs old No Primary Caregiver Self Support System Immediate family Baseline ADL's Functional Status Independent Living Arrangements Alone Type of Residence Private residence Ambulation Assistance No Bathing/Grooming Assistance No Dressing Assistance No Behavior Oriented;Cooperative Communication Talks;Understands speaking;Understands [place] Socioeconomic Needs Caregiver Needed No At Risk of Abuse or Neglect No Adequate Resources Yes Psychological Needs: Mental health concerns No Suspected Drug or Alcohol Abuse No Inappropriate Patient/Family Behaviors No Difficult Adjustment to Diagnosis No Recent Hospitalization Recent Hospitalization within 30 days No Anticipated Discharge Needs Change in Living Arrangements No In-Home Care or Equipment No Vocational and/or Role Loss No Inability to Complete ADL's No Anticipated DC Plan Living Arrangements Alone Support Systems Children Type of Residence Private residence Assistance Needed No Patient expects to be discharged to: Home Psychosocial Needs With Indication for Social Work Consult Diagnosis/prognosis resulting in poor adjustment or coping with illness No Diagnosis/prognosis with anticipated outcome of major lifestyle changes, including change in shelter living environment No Family concerns/conflicts No Inadequate social and/or financial supports No Abuse and/or neglect of elder, adult or child No Psychiatric and/or substance abuse issues affecting current hospitalization No Homelessness with lack of safe discharge environment No Need for guardianship petition No Chaptered patient No LIVES ALONE. DAUGHTER IN AREA AND ASSISTS NEEDED. PATIENT IS VERY ACTIVE WITH [facility]. DENIES NEED FOR HOME HEALTH ARE OTHER SERVICES documented in this encounter H&P Notes * Cara Alvarado, RAG INSPECTOR - 03/20/2020 9:10 AM CDT Hospitalist History and Physical Patient: Radha Allen Date: 03/20/2020 female, 74-year-old Admit Date: 03/19/2020 Attending: Durga Parekh MD REASON FOR ADMISSION: Diarrhea HISTORY OF PRESENT ILLNESS: Radha Allen is a 74-year-old female With past medical history significant for diabetes, hypertension, high cholesterol, and GERD to the emergency department with diarrhea that is been intermittentover the last several months. But over 2 days prior to presentation the diarrhea had worsened up to5 loose stools over the course of the day. Did not increase amount of stools that she was having her daughter thought that she looked weaker and dehydrated. She has not fallen at home. She was describing some lower abdominal pressure and cramping associated with the stools. She denies any sharp or diffuse pain. She been urinating without any difficulties and have has not had any nausea or vomiting. She had some stool samples performed by her primary care physician back in November That was negative for C. difficile And negative for Shida toxin 1 and 2. No other enteric pathogenswere isolated. Allergy No Known Allergies Medication list Medications Prior to Admission Medication Sig Dispense Refill ??? amLODIPine 5 MG tablet Take 5 mg by mouth daily. ??? aspirin EC (ASPIRIN EC) 81 MG tablet Take 81 mg by mouth nightly. ??? cholestyramine 4 G packet Take 4 g by mouth 2 (two) times daily with meals. ??? metFORMIN 500 MG tablet Take 500 mg by mouth 2 (two) times daily with meals. ??? metoprolol tartrate 50 MG tablet Take by mouth 2 (two) times daily. ??? naproxen sodium 220 MG tablet Take 440 mg by mouth every morning. ??? naproxen sodium 220 MG tablet Take 220 mg by mouth every evening. ??? pantoprazole EC 40 MG tablet Take 40 mg by mouth nightly. ??? pravastatin 40 MG tablet Take 40 mg by mouth nightly at bedtime. ??? vitamin B-12 500 MCG tablet Take 1,000 mcg by mouth daily. ??? diphenoxylate-atropine 2.5-0.025 MG tablet Take 1 tablet by mouth 2 (two) times a day. No current facility-administered medications on file prior to encounter. Current Outpatient Medications on File Prior to Encounter Medication Sig Dispense Refill ??? amLODIPine 5 MG tablet Take 5 mg by mouth daily. ??? aspirin EC (ASPIRIN EC) 81 MG tablet Take 81 mg by mouth nightly. ??? cholestyramine 4 G packet Take 4 g by mouth 2 (two) times daily with meals. ??? metFORMIN 500 MG tablet Take 500 mg by mouth 2 (two) times daily with meals. ??? metoprolol tartrate 50 MG tablet Take by mouth 2 (two) times daily. ??? naproxen sodium 220 MG tablet Take 440 mg by mouth every morning. ??? naproxen sodium 220 MG tablet Take 220 mg by mouth every evening. ??? pantoprazole EC 40 MG tablet Take 40 mg by mouth nightly. ??? pravastatin 40 MG tablet Take 40 mg by mouth nightly at bedtime. ??? vitamin B-12 500 MCG tablet Take 1,000 mcg by mouth daily. ??? diphenoxylate-atropine 2.5-0.025 MG tablet Take 1 tablet by mouth 2 (two) times a day. Past Medical History Past Medical History: Diagnosis Date ??? Diabetes mellitus (CMS/HCC) ??? GERD (gastroesophageal reflux disease) ??? Hypercholesteremia ??? Hypertension Past Surgical History: Procedure Laterality Date ??? HYSTERECTOMY ??? PARTIAL HIP REPLACEMENT Left Social History Social History Socioeconomic History ??? Marital status: Spouse name: Not on file ??? Number of children: Not on file ??? Years of education: Not on file ??? Highest education level: Not on file Occupational History ??? Not on file Social Needs ??? Financial resource strain: Not on file ??? Food insecurity: Worry: Not on file Inability: Not on file ??? Transportation needs: Medical: Not on file Non-medical: Not on file Tobacco Use ??? Smoking status: Never Smoker ??? Smokeless tobacco: Never Used Substance and Sexual Activity ??? Alcohol use: Never Frequency: Never ??? Drug use: Never ??? Sexual activity: Not on file Lifestyle ??? Physical activity: Days per week: Not on file Minutes per session: Not on file ??? Stress: Not on file Relationships ??? Social connections: Talks on phone: Not on file Gets together: Not on file Attends synagogue service: Not on file Active member of club or organization: Not on file Attends meetings of clubs or organizations: Not on file Relationship status: Not on file ??? Intimate partner violence: Fear of current or ex partner: Not on file Emotionally abused: Not on file Physically abused: Not on file Forced sexual activity: Not on file Other Topics Concern ??? Not on file Social History Narrative ??? Not on file Family History Family History Problem Relation Name Age of Onset ??? Stroke Mother ??? Cancer Father REVIEW OF SYSTEMS: A 14 point review of systems was taken and pertinent positive as per HPI PHYSICAL EXAMINATION: Vital 24 Hour Range Most Recent Value Temperature Temp Min: 97.8 ??F (36.6 ??C) Max: 98.9 ??F (37.2 ??C) 98.9 ??F (37.2 ??C) Pulse Pulse Min: 82 Max: 90 85 Respiratory Resp Min: 16 Max: 18 18 Blood Pressure BP Min: 100/42 Max: 130/51 109/41 Pulse Oximetry SpO2 Min: 95 % Max: 100 % 95 % O2 No data recorded Vital Most Recent Value First Value Weight 70 kg (154 lb 5.2 oz) Weight: 68 kg (150 lb) Height 5' 1 (154.9 cm) Height: 5' 1 (154.9 cm) BMI 29.6 N/A Physical Exam: Physical Exam Constitutional: She is oriented to person, place, and time. She appears well-developed. HENT: Head: Normocephalic. Eyes: Pupils are equal, round, and reactive to light. Neck: Normal range of motion. Neck supple. Cardiovascular: Normal rate and regular rhythm. Pulmonary/Chest: Effort normal and breath sounds normal. Abdominal: Soft. Bowel sounds are normal. She exhibits no distension. There is tenderness. There isrebound. There is no guarding. Neurological: She is alert and oriented to person, place, and time. Skin: Skin is warm and dry. Vitals reviewed. Intake/Output last 3 shifts: No intake/output data recorded. Labs: Recent Results (from the past 24 hour(s)) CBC W/DIFF AUTOMATED Collection Time: 03/19/20 8:45 PM Result Value Ref Range WBC 18.1 (H) 4.4 - 11.0 x10'3/uL RBC 3.78 (L) 4.50 - 5.10 x10'6/uL HGB 9.5 (L) 12.3 - 15.3 G/DL HCT 31.0 (L) 35.9 - 44.6 % MCV 82.0 80.0 - 96.0 FL MCH 25.1 (L) 25.3 - 30.9 PG MCHC 30.6 (L) 31.0 - 34.1 G/DL RDW 16.0 (H) 12.4 - 15.1 % PLT 476 (H) 151 - 353 x10'3/uL MPV 8.7 (L) 9.6 - 12.0 FL SEG NEUTROPHILS 76 (H) 42 - 72 % BANDS 2 % LYMPHOCYTES 13 (L) 15.8 - 45.0 % MONOCYTES 9 5.7 - 12.5 % ABS. NEUTROPHILS TOTAL 14.12 (H) 1.40 - 6.00 x10'3/uL ABS. LYMPHOCYTES 2.35 0.80 - 4.70 x10'3/uL PLT MORPH. NORMAL RBC MORPHOLOGY NORMAL WBC MORPHOLOGY NORMAL COMPREHENSIVE METABOLIC PANEL Collection Time: 03/19/20 8:45 PM Result Value Ref Range GLUCOSE 107 (H) 70 - 99 MG/DL BUN 28 (H) 7 - 18 MG/DL CREATININE S/P/B 2.27 (H) 0.55 - 1.02 MG/DL SODIUM 135 (L) 136 - 145 MMOL/L POTASSIUM 5.3 (H) 3.5 - 5.1 MMOL/L CHLORIDE S/P/B 102 100 - 108 MMOL/L CO2 20.2 (L) 21 - 32 MMOL/L CALCIUM 8.4 (L) 8.5 - 10.1 MG/DL BILIRUBIN TOTAL S/P/B 0.4 0.2 - 1.2 MG/DL TOTAL PROTEIN S/P/B 7.4 6.4 - 8.2 G/DL ALBUMIN S/P/B 2.5 (L) 3.4 - 5.0 G/DL AST 21 15 - 37 U/L ALT 16 14 - 55 U/L ALKALINE PHOSPHATASE S/P/B 103 50 - 136 U/L ANION GAP 12.8 5 - 15 MMOL/L BUN CREATININE RATIO 12.3 6 - 26 A/G RATIO 0.5 (L) 1.0 - 2.0 RATIO eGFR Non-Afr. Amer. 20 (L) >90 ML/MIN/1.73 M2 eGFR Afr. Amer. 24 (L) >90 ML/MIN/1.73 M2 LIPASE Collection Time: 03/19/20 8:45 PM Result Value Ref Range LIPASE 74 73 - 393 UNITS/L LACTIC ACID Collection Time: 03/19/20 8:45 PM Result Value Ref Range LACTIC ACID 1.5 0.4 - 2.0 MMOL/L CBC W/DIFF AUTOMATED Collection Time: 03/20/20 5:30 AM Result Value Ref Range WBC 11.2 (H) 4.4 - 11.0 x10'3/uL RBC 3.10 (L) 4.50 - 5.10 x10'6/uL HGB 7.8 (L) 12.3 - 15.3 G/DL HCT 25.6 (L) 35.9 - 44.6 % MCV 82.6 80.0 - 96.0 FL MCH 25.2 (L) 25.3 - 30.9 PG MCHC 30.5 (L) 31.0 - 34.1 G/DL RDW 16.1 (H) 12.4 - 15.1 % PLT 336 151 - 353 x10'3/uL MPV 9.0 (L) 9.6 - 12.0 FL RBC MORPHOLOGY NORMAL PLT MORPH. NORMAL WBC MORPHOLOGY NORMAL LYMPHOCYTES 15.5 (L) 15.8 - 45.0 % NEUTROPHILS 70.7 42.1 - 71.9 % MONOCYTES 11.5 5.7 - 12.5 % EOSINOPHILS 0.8 0.0 - 5.6 % BASOPHILS 0.3 0.0 - 1.3 % ABS. NEUTROPHILS TOTAL 7.93 (H) 1.40 - 6.00 x10'3/uL IMMATURE GRANS 1.2 (H) 0.0 - 0.5 % ABS. LYMPHOCYTES 1.74 0.80 - 4.70 x10'3/uL BASIC METABOLIC PANEL Collection Time: 03/20/20 5:30 AM Result Value Ref Range GLUCOSE 74 70 - 99 MG/DL BUN 24 (H) 7 - 18 MG/DL CREATININE S/P/B 1.59 (H) 0.55 - 1.02 MG/DL SODIUM 140 136 - 145 MMOL/L POTASSIUM 5.0 3.5 - 5.1 MMOL/L CHLORIDE S/P/B 110 (H) 100 - 108 MMOL/L CO2 20.2 (L) 21 - 32 MMOL/L CALCIUM 7.4 (L) 8.5 - 10.1 MG/DL ANION GAP 9.8 5 - 15 MMOL/L BUN CREATININE RATIO 15.1 6 - 26 eGFR Non-Afr. Amer. 31 (L) >90 ML/MIN/1.73 M2 eGFR Afr. Amer. 36 (L) >90 ML/MIN/1.73 M2 MAGNESIUM Collection Time: 03/20/20 5:30 AM Result Value Ref Range MAGNESIUM 1.6 (L) 1.8 - 2.4 MG/DL LIPID PANEL Collection Time: 03/20/20 5:30 AM Result Value Ref Range CHOLESTEROL 51 <200.0 MG/DL TRIGLYCERIDE 47 <150 MG/DL HDL 36 (L) >40.0 MG/DL LDL (CALCULATED) 6 <100 MG/DL NON HDL CHOLESTEROL 15 <130 MG/DL CHOL/HDL RATIO 1.4 0.0 - 4.5 VLDL Calculation 9 5 - 55 MG/DL LIPID INTERPRETATION Imagining & Other Studies CT ABD+PEL WO CON [[id number]] Collected: 03/20/20825 Updated: 03/20/20834 Narrative: ?? IMAGING STUDIES: ??CT ABD+PEL WO CON ? DATE: ??03/19/2020 9:23 PM ?? COMPARISON STUDIES: No previous available. ? CLINICAL HISTORY: ??low abd pain, intermittent diarrhea for weeks, worse x 2 days Abdominal pain, unspecified ? . ?? TECHNIQUE: ??Helical axial images were acquired from the lung bases to symphysis pubis. ??Sagittal and coronal reconstructions were obtained. Radiation dose reduction technique was utilized. ?? FINDINGS AND IMPRESSION (Limited exam due to the lack of intravenous contrast administration and motion artifact): ?? LOWER CHEST: ?? 1. ??Lungs: Lungs bases are clear. No pleural effusion. ?? 2. ??Visible mediastinum: Cardiomegaly.. ?? ABDOMEN: ?? 1. ??Liver: Hepatic steatosis. ?? 2. ??Gallbladder: Normal in appearance. Noncalcified gallstones might not be visible on CT.. ?? 3. ??Spleen: No lesions, no splenomegaly. ?? 4. ??Pancreas: No focal lesions. ?? 5. ??Adrenal glands: No focal lesions. ?? 6. ??Kidneys: Punctate calcification and small hyperdense cyst right kidney 10 mm as well as 14 mm cystic lesion left kidney which cannot be appropriately characterize on this exam, consider contrast CT or ultrasound to further evaluate. ? No hydroureter or obvious distal stones. ?? 7. ??Retroperitoneal space: No lymphadenopathy or masses. No mesenteric lymphadenopathy or edema. ?? 8. ??Stomach and bowel: Nonobstructive pattern. No free air. ?? 9. ??Aorta: No significant atherosclerotic disease or aneurysmal dilation. ? PELVIS: ?? 1. ??Appendix: Not pathologically distended. ?? 2. ??Colon and rectum: Not obstructed. No acute diverticulitis. Dr. Moore concern about the possibility of mild nonspecific colitis in his preliminary report. ?? 3. ??Uterus and adnexa: No obvious masses. ?? 4. ??Urinary bladder: No stones or abnormal wall thickening. ?? 5. ??Pelvic space: Obscured by artifact. ?? BONES AND OTHER INCIDENTAL FINDINGS: ?? 1. ??Bones: Total left hip arthroplasty, protrusio acetabuli. Right hip degenerative changes and degenerative changes of the lumbar spine, scoliosis. Degenerative changes sacroiliac joints. ? Preliminary report rendered by Dr. Driss Moore immediately after the examination was completed. ? Voice recognition software utilized. ?? Results for orders placed or performed during the hospital encounter of 03/19/20 ECG 12 lead Narrative [facility] Test Date: 2020-03-19 Pat Name: RADHA ALLEN Department: Room: 120 Gender: Female Template Inspector: : 1945 Requested By: MAHESH NELSON Order Number: [id number] Reading MD: Keven Gunter Measurements Intervals Alpine Rate: 78 P: 53 PA: 137 QRS: 22 QRSD: 87 T: 12 QT: 355 QTc: 405 Interpretive Statements SINUS RHYTHM LOW QRS VOLTAGE IN PRECORDIAL LEADS No previous ECG available for comparison Assessment & Plan Colitis Stool studies IV antibiotics with Zosyn Bowel rest Monitor CBC in am Non toxic appearing Hydrate with IVF PT eval since weakness from dehydration Incidental finding on CT: Punctate calcification and small hyperdense cyst right kidney 10 mm as well as 14 mm cystic lesion left kidney which cannot be appropriately characterize on this exam, consider contrast CT or ultrasound to further evaluate. ?? Will order a left renal US. Hypertension Holding home medications; BP trending soft; IVF hydration HLD Statin Diabetes; oral med controlled Holding oral meds; placed on SSI. FULL CODE Anticipated LOS 2-3 days pending progress CARA ALVARADO, TRACY 03/20/2020 9:11 AM Cosigned by Durga Parekh MD at 03/20/2020 8:49 PM CDT Associated attestation - Durga Parekh MD - 03/20/2020 8:49 PM CDT I, DURGA PAREHK MD, performed a History and Physical examination of the patient and discussed the management with the Advanced Practice Provider (GLENN). I reviewed the GLENN's note and agree with thefindings and plan of care, except as I have documented. 74 yr female hx DM, HTN DL and GERD put on protonix. Usual state of health until September when she came back from [place]. While there she had immersion confucianism. She noticed watery stools within a few days and this has continued. She saw PCP in November and stool culture was taken. She was prescribed questran. She has had decreased appetite and weight loss. She noticed the diarrhea started to increase in January and has become worse over the past two weeks. The patient noticed her mother looked pale and weak this weekend. She has had rectal bleeding at least once. Nausea perhaps few times. No significantabdominal pain. Lungs; clear Heart: RRR NL S1S2 Abd: soft, NT, ND, no guarding. Chronic Diarrhea r/o infection, collagenous, microscopic colitis, malabsorption, JENNY Hypoalbuminemia indicating protein calorie malnutrition Plan: Stool culture G.I. Consultation. documented in this encounter Consult Notes * Indigo Parsons MD - 03/21/2020 8:17 AM CDTAssociated Order(s): IP CONSULT TO GASTROENTEROLOGY GASTROENTEROLOGY CONSULT 03/21/2020 8:17 AM Reason for Consult: Persistent diarrhea Chief Complaint: Same History of Present Illness: Radha Allen is a 74-year-old in for evaluation of persistent diarrhea that she has had for multiple months now. Nothing seems to control it well. As she was seen by her family physician who prescribed her some powder substance which she took twice a day but it did not help. She denies any abdominal pain. She was thought to have colitis and was prescribed some antibiotics in the past but again it did not help. She continues to have a dehydration and was admitted with colitis. Upon admission she was found to have lower abdominal pressure and cramping along with about 5 bowel movements. She tested negative for C. difficile and other enteric pathogens. She believes she had a colonoscopy over5 years ago. Patient Active Problem List Diagnosis ??? Colitis Past Medical History: Diagnosis Date ??? Diabetes mellitus (CMS/HCC) ??? GERD (gastroesophageal reflux disease) ??? Hypercholesteremia ??? Hypertension Past Surgical History: Procedure Laterality Date ??? HYSTERECTOMY ??? PARTIAL HIP REPLACEMENT Left Family History Problem Relation Name Age of Onset ??? Stroke Mother ??? Cancer Father Social History Socioeconomic History ??? Marital status: Spouse name: Not on file ??? Number of children: Not on file ??? Years of education: Not on file ??? Highest education level: Not on file Occupational History ??? Not on file Social Needs ??? Financial resource strain: Not on file ??? Food insecurity: Worry: Not on file Inability: Not on file ??? Transportation needs: Medical: Not on file Non-medical: Not on file Tobacco Use ??? Smoking status: Never Smoker ??? Smokeless tobacco: Never Used Substance and Sexual Activity ??? Alcohol use: Never Frequency: Never ??? Drug use: Never ??? Sexual activity: Not on file Lifestyle ??? Physical activity: Days per week: Not on file Minutes per session: Not on file ??? Stress: Not on file Relationships ??? Social connections: Talks on phone: Not on file Gets together: Not on file Attends synagogue service: Not on file Active member of club or organization: Not on file Attends meetings of clubs or organizations: Not on file Relationship status: Not on file ??? Intimate partner violence: Fear of current or ex partner: Not on file Emotionally abused: Not on file Physically abused: Not on file Forced sexual activity: Not on file Other Topics Concern ??? Not on file Social History Narrative ??? Not on file ??? aspirin EC 81 mg Oral nightly ??? enoxaparin 30 mg Subcutaneous Q24H ??? pantoprazole EC 40 mg Oral Nightly at bedtime ??? piperacillin-tazobactam 3.375 g Intravenous Q8H ??? pravastatin 40 mg Oral Nightly at bedtime ??? vitamin B-12 1,000 mcg Oral Daily No Known Allergies REVIEW OF SYSTEMS: General: no fever, chills, malaise, fatigue, weight loss or gain. HEENT: no acute changes in vision or hearing Respiratory: no shortness of breath, cough, sputum production, hemoptysis Cardiovascular: no chest pain, palpitations, orthopnea Gastrointestinal: as per HPI Genitourinary: no dysuria, hematuria, incontinence Musculoskeletal: no extremity edema, myalgia. Neuro: no dizziness, headache, seizures Hematology: no easy bruising, bleeding Skin: no new skin rashes or lesions. PHYSICAL EXAM: Filed Vitals: 03/20/20 2146 03/21/20 0028 03/21/20 0343 03/21/20 0715 BP: (!) 110/32 123/52 111/50 98/46 Pulse: 101 78 82 Resp: Temp: 99.1 ??F (37.3 ??C) 99.3 ??F (37.4 ??C) 98.7 ??F (37.1 ??C) TempSrc: Tympanic Tympanic Tympanic SpO2: 97% 97% 100% Weight: 70.3 kg (154 lb 15.7 oz) Height: Wt Readings from Last 3 Encounters: 03/21/20 70.3 kg (154 lb 15.7 oz) General: Pleasant, no distress HEENT: negative Neck: supple Lungs: clear Heart: RRR Abdomen: soft, non-tender, non-distended, no masses Normal bowel sound Rectal: deferred Extremities: no edema Skin: No rash Neuro: AO x3 Labs: Recent Labs Lab 03/19/20204403/20/20 0530 WBC 18.1* 11.2* HGB 9.5* 7.8* MCV 82.0 82.6 PLT 476* 336 Recent Labs Lab 03/19/20204403/20/20 0530 NA 135* 140 K 5.3* 5.0 CL 102 110* CO2 20.2* 20.2* BUN 28* 24* Recent Labs Lab 03/19/202044 AST 21 ALT 16 ALB 2.5* ? Imaging/Procedures: Pertinent images reviewed. Previous Endoscopy: None Assessment and Plan: Several months of ongoing diarrhea will need to be evaluated for colitis. PLAN Colonoscopy in the morning The procedural risks, benefits, alternatives, including the risks of complications of bleeding, infection, bowel injury or perforation, anesthesia related risks, but not limited to the above were explained and discussed fully with the patient and all questions answered. The complications could leadto possible hospitalization, antibiotics and surgery and even remote chance of . The patient verbalizes understanding and wishes to proceed. Thank you for this consult. Please do not hesitate to contact us with further questions. INDIGO PARSONS MD Voice recognition software utilized documented in this encounter Nursing Notes * Stacie Rendon RN - 03/21/2020 6:33 AM CDT Daughter called and notified of patient status and all questions answered. Daughter appreciative. * Martina Jiménez RN - 03/20/2020 8:39 AM CDT Discussed home medications with patient. Took medications from patient room and gave to pharmacy. documented in this encounter OR Notes * Op Note - Indigo Parsons MD - 03/22/2020 10:27 AM CDT [facility] OpNote colonoscopy with biopsies Procedure Note Radha Allen 03/19/2020 - 03/22/2020 1142 Procedure(s) (LRB): colonoscopy with biopsies (N/A) Surgeon(s): Indigo Parsons MD Staff: Circulating Nurse 1: Miroslava Henderson RN lens assorter: Jody Francisco, TINT LAYER Anesthesia: * No anesthesia type entered * POLE SANDER OPERATOR: Rochelle García CRNA Pre-Op Diagnosis: diarrhea and blood Post-Op Diagnosis: Grubbs ulcerative colitis. Procedure Description: Informed consent was obtained earlier. Patient was brought to the OR and placed in supine lateral decubitus position and sedated under MAC anesthesia. PCF 190 colonoscope was lubricated inserted into the rectum advanced to the cecum. Cecum was identified by ileocecal valve and appendiceal orifice. Prep was excellent. Cecum ascending colon transverse colon is ending sigmoid and rectum all carefully visualized and there was diffuse moderate ulcerative colitis. There were several areas in the transverse colon of deep ulcerations. Random biopsies were taken of the right colon and left colon as well as rectum separately. Findings: Grubbs ulcerative colitis with some areas of deep ulcerations. Biopsies were taken throughout. Plan: Check biopsies. Will consider starting her on steroids. Complications: None Estimated Blood Loss: * No values recorded between 03/22/2020 10:07 AM and 03/22/2020 10:26 AM * Specimens: Order Name Source Comment Collection Info Order Time PATHOLOGY COLON Collected By: Indigo Parsons MD 03/22/2020 10:26 AM Voice recognition software utilized. INDIGO PARSONS MD Date: 03/22/2020 Time: 10:28 AM Voice recognition software utilized. documented in this encounter ED Notes * Kaitlynn Amin RN - 03/20/2020 12:06 AM CDT Patient admitted to room 120 via wheelchair. Accompanied by ELMO Ireland. Patient A/O x 4. Denies pain at this time. * Kaitlynn Amin RN - 03/19/2020 11:28 PM CDT ELMO Ireland here. Report given. * Mahesh Nelson MD - 03/19/2020 9:19 PM CDT Chief Complaint Chief Complaint Patient presents with ??? Diarrhea Provider at Bedside Date/Time Event User Comments 03/19/202035 Provider at Bedside Assessing Patient MAHESH NELSON History of Present Illness Patient presents with intermittent diarrhea for the last several months. She has seen her PCP for this a few months ago, has had fecal testing and lab work but does not know the results. Over the last 2 days diarrhea has worsened, up to 5 loose stools over the course of the day today. Daughter thinks that she appears a bit weak and so brings her to the emergency department. No fever or chills. Patient describes some low abdominal pressure but denies any sharp pain. Urinating normally. No nausea or vomiting and has been keeping up with fluid intake she thinks. No previous abdominal surgeries. She has history of prediabetes, dyslipidemia, hypertension. No heart problems. Not on blood thinner s. Medical History ALLERGIES: No Known Allergies MEDICATIONS: Prior to Admission medications Medication Sig Start Date End Date Taking? Authorizing Provider amLODIPine 5 MG tablet Take 5 mg by mouth daily. Yes Doc Abstract aspirin EC (ASPIRIN EC) 81 MG tablet Take 81 mg by mouth daily. Yes Doc Abstract cholestyramine 4 G packet Take 4 g by mouth 2 (two) times daily with meals. Yes Doc Abstract metFORMIN 1000 MG tablet Take 1,000 mg by mouth 2 (two) times daily with meals. Yes Doc Abstract metoprolol tartrate 50 MG tablet Take by mouth 2 (two) times daily. Yes Doc Abstract naproxen sodium 220 MG tablet Take 440 mg by mouth every morning. Yes Doc Abstract naproxen sodium 220 MG tablet Take 220 mg by mouth every evening. Yes Doc Abstract pantoprazole EC 40 MG tablet Take 40 mg by mouth daily. Yes Doc Abstract pravastatin 40 MG tablet Take 40 mg by mouth nightly at bedtime. Yes Doc Abstract vitamin B-12 500 MCG tablet Take 1,000 mcg by mouth daily. Yes Doc Abstract diphenoxylate-atropine 2.5-0.025 MG tablet Take 1 tablet by mouth 2 (two) times a day. Doc Abstract PAST MEDICAL HISTORY: Past Medical History: Diagnosis Date ??? Diabetes mellitus (CMS/HCC) ??? GERD (gastroesophageal reflux disease) ??? Hypercholesteremia ??? Hypertension PAST SURGICAL HISTORY: Past Surgical History: Procedure Laterality Date ??? HYSTERECTOMY ??? PARTIAL HIP REPLACEMENT Left FAMILY HISTORY: Family History Problem Relation Name Age of Onset ??? Stroke Mother ??? Cancer Father SOCIAL HISTORY: Social History Tobacco Use ??? Smoking status: Never Smoker ??? Smokeless tobacco: Never Used Substance Use Topics ??? Alcohol use: Never Frequency: Never ??? Drug use: Never Review of Systems Review of Systems Constitutional: Negative for chills and fever. HENT: Negative for nosebleeds. Eyes: Negative for photophobia. Respiratory: Negative for shortness of breath. Cardiovascular: Negative for chest pain. Gastrointestinal: Positive for abdominal pain and diarrhea. Negative for nausea and vomiting. Genitourinary: Negative for difficulty urinating. Musculoskeletal: Negative for back pain. Neurological: Negative for dizziness. Psychiatric/Behavioral: Negative for agitation. All other systems reviewed and are negative. Physical Exam Patient Vitals for the past 24 hrs: BP Temp Temp src Pulse Resp SpO2 Height Weight 03/19/205 110/42 97.8 ??F (36.6 ??C) Temporal 82 16 -- -- -- 03/19/202329 107/43 -- -- -- -- 98 % -- -- 03/19/205 125/75 -- -- -- -- 96 % -- -- 03/19/202244 -- -- -- -- -- 99 % -- -- 03/19/202229 107/53 -- -- -- -- 98 % -- -- 03/19/202214 -- -- -- -- -- 95 % -- -- 03/19/202199 100/42 -- -- -- -- 99 % -- -- 03/19/202144 104/58 -- -- -- -- 98 % -- -- 03/19/202129 -- -- -- -- -- 98 % -- -- 03/19/202114 -- -- -- -- -- 96 % -- -- 03/19/202099 -- -- -- -- -- 95 % -- -- 03/19/202044 130/51 -- -- -- -- 95 % -- -- 03/19/202038 130/51 97.8 ??F (36.6 ??C) Temporal 90 16 95 % 5' 1 (1.549 m) 68 kg (150 lb) 03/19/202034 130/51 97.8 ??F (36.6 ??C) -- 90 16 95 % -- -- Physical Exam Constitutional: She is oriented to person, place, and time. She appears well- developed and well-nourished. No distress. Pleasant, speaking full sentences HENT: Head: Normocephalic. Mouth/Throat: Mucous membranes are dry. Eyes: Conjunctivae are normal. Neck: Normal range of motion. Cardiovascular: Normal rate. Pulmonary/Chest: Effort normal. Abdominal: She exhibits no distension. There is generalized tenderness. There is no rebound and no guarding. Mild low abdominal tenderness Musculoskeletal: Normal range of motion. Neurological: She is alert and oriented to person, place, and time. Coordination normal. Skin: Skin is dry. There is pallor. Psychiatric: She has a normal mood and affect. Diagnostic Studies / Procedures ELECTROCARDIOGRAMS: Results for orders placed or performed during the hospital encounter of 03/19/20 ECG 12 lead Narrative [facility] Test Date: 2020-03-19 Pat Name: RADHA ALLEN Department: Room: EXAM 101 Gender: Female Template Inspector: : 1945 Requested By: MAHESH NELSON Order Number: [id number] Reading MD: Measurements Intervals Alpine Rate: 78 P: 53 PA: 137 QRS: 22 QRSD: 87 T: 12 QT: 355 QTc: 405 Interpretive Statements SINUS RHYTHM LOW QRS VOLTAGE IN PRECORDIAL LEADS [QRS DEFLECTION < 1.0 mV IN CHEST LEADS] No previous ECG available for comparison LABORATORY STUDIES: Results for orders placed or performed during the hospital encounter of 03/19/20 CBC W/DIFF AUTOMATED Result Value Ref Range WBC 18.1 (H) 4.4 - 11.0 x10'3/uL RBC 3.78 (L) 4.50 - 5.10 x10'6/uL HGB 9.5 (L) 12.3 - 15.3 G/DL HCT 31.0 (L) 35.9 - 44.6 % MCV 82.0 80.0 - 96.0 FL MCH 25.1 (L) 25.3 - 30.9 PG MCHC 30.6 (L) 31.0 - 34.1 G/DL RDW 16.0 (H) 12.4 - 15.1 % PLT 476 (H) 151 - 353 x10'3/uL MPV 8.7 (L) 9.6 - 12.0 FL SEG NEUTROPHILS 76 (H) 42 - 72 % BANDS 2 % LYMPHOCYTES 13 (L) 15.8 - 45.0 % MONOCYTES 9 5.7 - 12.5 % ABS. NEUTROPHILS TOTAL 14.12 (H) 1.40 - 6.00 x10'3/uL ABS. LYMPHOCYTES 2.35 0.80 - 4.70 x10'3/uL PLT MORPH. NORMAL RBC MORPHOLOGY NORMAL WBC MORPHOLOGY NORMAL COMPREHENSIVE METABOLIC PANEL Result Value Ref Range GLUCOSE 107 (H) 70 - 99 MG/DL BUN 28 (H) 7 - 18 MG/DL CREATININE S/P/B 2.27 (H) 0.55 - 1.02 MG/DL SODIUM 135 (L) 136 - 145 MMOL/L POTASSIUM 5.3 (H) 3.5 - 5.1 MMOL/L CHLORIDE S/P/B 102 100 - 108 MMOL/L CO2 20.2 (L) 21 - 32 MMOL/L CALCIUM 8.4 (L) 8.5 - 10.1 MG/DL BILIRUBIN TOTAL S/P/B 0.4 0.2 - 1.2 MG/DL TOTAL PROTEIN S/P/B 7.4 6.4 - 8.2 G/DL ALBUMIN S/P/B 2.5 (L) 3.4 - 5.0 G/DL AST 21 15 - 37 U/L ALT 16 14 - 55 U/L ALKALINE PHOSPHATASE S/P/B 103 50 - 136 U/L ANION GAP 12.8 5 - 15 MMOL/L BUN CREATININE RATIO 12.3 6 - 26 A/G RATIO 0.5 (L) 1.0 - 2.0 RATIO eGFR Non-Afr. Amer. 20 (L) >90 ML/MIN/1.73 M2 eGFR Afr. Amer. 24 (L) >90 ML/MIN/1.73 M2 LIPASE Result Value Ref Range LIPASE 74 73 - 393 UNITS/L LACTIC ACID Result Value Ref Range LACTIC ACID 1.5 0.4 - 2.0 MMOL/L IMAGING STUDIES CT ABD+PEL WO CON (Results Pending) Medications piperacillin-tazobactam (ZOSYN) 3.375 g in sodium chloride 0.9 % 50 mL IVPB (3.375 g Intravenous New Bag 03/19/20 7132) piperacillin-tazobactam (ZOSYN) 3.375 g in sodium chloride 0.9 % 50 mL IVPB (has no administration in time range) sodium chloride 0.9% bolus infusion SOLN 1,000 mL (1,000 mLs Intravenous New Bag 03/19/202211) sodium chloride 0.9% bolus infusion SOLN 1,000 mL (0 mLs Intravenous Infusion Stop Time 03/19/202210) ED Course / Medical Decision Making MDM Number of Diagnoses or Management Options JENNY (acute kidney injury) (CMS/HCC): Colitis: Diagnosis management comments: Patient rehydrated with IV fluids. Labs reviewed. White count 18. Normal lactate. Blood cultures drawn. Creatinine 2.3, GFR 20, K 5.3. Previous renal function is unknown at this time. Patient describes an acute illness several years ago where she briefly needed dialysis but to her knowledge she has recovered from this. Daughter says she has recent lab results at home and will go home to retrieve them. EKG NSR rate 78, no peaked T waves, no acute ischemia, normal intervals. Daughter returns with lab results from 12/25/2019 showing CREAT 0.[address] scan is done and shows mild nonspecific colitis, no diverticulitis. Patient given Zosyn. Case discussed with Dr. Aaron at 2300 who will admit the patient. Clinical Impression JENNY (acute kidney injury) (CMS/HCC) (Primary) Colitis Disposition: Admit Mahesh Nelson MD 03/19/20 8146 * Kaitlynn Amin RN - 03/19/2020 8:35 PM CDT Patient arrived via POV from home with c/o diarrhea, 5-6 loose stools in the past 24 hours, since September. Patient returned home from [facility] and began having diarrhea. Has had stool samples, which werenegative. Patient c/o generalized weakness and family reports that she appears pale. Also, c/o hemorroids. documented in this encounter Plan of Treatment Upcoming Encounters Date Type Department Care Team (Late st Contact Info) Description 08/03/2024 2:00 PM PEDIATRIC PHYSICAL THERAPY ASSISTANT Appointment [facility] [id number] [place] [address] Josué Cook MD [address] [facility] [address] [facility] [place] [address] Pending Results Name Type Priority Associated Diagnoses Date /Time Blood Bank - Specimen Hold Blood Bank Routine 03/19/2020 8:45 PM CDT documented as of this encounter Goals Goal Patient Goal Type Associated Problems Recent Progress Patient-Stated? Author HOME TO [facility] Vannessa Light RN documented as of this encounter Procedures Procedure Name Priority Date/Time Associated Diagnosis Comments BASIC METABOLIC PANEL Routine 03/23/2020 6:20 AM CDT CBC W/DIFF AUTOMATED Routine 03/23/2020 6:20 AM CDT POCT GLUCOSE - BLANTON DOCKED DEVICE Routine 03/22/2020 7:56 PM CDT CULTURE, BACTERIA, BLOOD TIMED 03/22/2020 11:57 AM CDT CULTURE, BACTERIA, BLOOD STAT 03/22/2020 11:57 AM CDT PATHOLOGY Routine 03/22/2020 10:20 AM CDT COLONOSCOPY DIAGNOSTIC WITH/WITHOUT SPECIMEN BRUSH/WASH 03/22/2020 10:08 AM CDT diarrhea and blood VITAMIN B12 / FOLATE Routine 03/22/2020 6:55 AM CDT IRON SAT PANEL (IRON,IBC,%SAT) Routine 03/22/2020 6:55 AM CDT BASIC METABOLIC PANEL Routine 03/22/2020 6:55 AM CDT CBC W/DIFF AUTOMATED Routine 03/22/2020 6:55 AM CDT POCT GLUCOSE - BLANTON DOCKED DEVICE Routine 03/22/2020 5:59 AM CDT POCT GLUCOSE - BLANTON DOCKED DEVICE Routine 03/21/2020 8:25 PM CDT POCT GLUCOSE - BLANTON DOCKED DEVICE Routine 03/21/2020 4:13 PM CDT BASIC METABOLIC PANEL Routine 03/21/2020 12:09 PM CDT CBC W/DIFF AUTOMATED Routine 03/21/2020 12:09 PM CDT US RETROPERITONEAL COMP Today 03/21/20 20 10:53 AM CDT POCT GLUCOSE - BLANTON DOCKED DEVICE Routine 03/21/2020 6:07 AM CDT HC OVA & PARASITE W/STAIN-90 Routine 03/20/2020 12:25 PM CDT HC CLOSTRIDUM DIFFICILE Routine 03/20/20 11:25 AM CDT BASIC METABOLIC PANEL Routine 03/20/2020 5:30 AM CDT LIPID PANEL Routine 03/20/2020 5:30 AM CDT CBC W/DIFF AUTOMATED Routine 03/20/2020 5:30 AM CDT MAGNESIUM Routine 03/20/2020 5:30 AM CDT CULTURE, BACTERIA, BLOOD STAT 03/20/2020 5:21 AM CDT CULTURE, BACTERIA, BLOOD SHIRA 03/20/2020 5:21 AM CDT ECG 12-LEAD Routine 03/19/2020 11:[address] ABD+PEL WO CON STAT 03/19/2020 9:4 9 PM CDT BLOOD BANK - SPECIMEN HOLD Routine 03/19/2020 8:45 PM CDT COMPREHENSIVE METABOLIC PANEL STAT 03/19/2020 8:45 PM CDT LACTIC ACID STAT 03/19/2020 8:45 PM CDT CBC W/DIFF AUTOMATED STAT 03/19/2020 8:45 PM CDT LIPASE STAT 03/19/2020 8:45 PM CDT documented in this encounter Results * (ABNORMAL) BASIC METABOLIC PANEL (03/30/2020 1:30 PM CDT) [facility] GLUCOSE 144(H) 70 - 99 MG/DL 03/30/2020 1:56 PM CDT [facility] BUN 12 7 - 18 MG/DL 03/30/2020 1:56 PM CDT [facility] CREATININE S/P/B 0.95 0.55 - 1.02 MG/DL 03/30/2020 1:56 PM CDT [facility] SODIUM S/P/B 141 136 - 145 MMOL/L 03/30/2020 1:56 PM CDT [facility] POTASSIUM S/P/B 3.4(L) 3.5 - 5.1 MMOL/L 03/30/2020 1:56 PM T [facility] CHLORIDE S/P/B 104 100 - 108 MMOL/L 03/30/2020 1:56 PM T [facility] CO2 28.8 21 - 32 MMOL/L 03/30/2020 1:56 PM [facility] CALCIUM S/P/B 8.9 8.5 - 10.1 MG/DL 03/30/2020 1:56 PM [facility] ANION GAP 8.2 5 - 15 MMOL/L 03/30/2020 1:56 PM [facility] BUN CREATININE RATIO 12.6 6 - 26 03/30/2020 1:56 PM [facility] EGFR NON-AFR. AMER. 58(L) >90 ML/MIN/1.7 3 M2 03/30/2020 1:56 PM [facility] EGFR AFR. AMER. 67(L) >90 ML/MIN/1.7 3 M2 03/30/2020 1:56 PM CDT [facility] Comment: NOTE: eGFR is not calculated for patients <18 years of age. This is an estimated GFR (CKD EPI) and should not be used for calculating drug doses. 03/30/2020 1:30 PM CDT Obdulio Darian Hogue RAG INSPECTOR LABORATORY Final Result [facility] [address] [place] [address], [place] [phone] * (ABNORMAL) CBC W/DIFF AUTOMATED (03/30/2020 1:30 PM CDT) WBC 12.7(H) 4.4 - 11.0 x10'3/uL 03/30/2020 1:45 PM CDT [facility] RBC 3.58(L) 4.50 - 5.10 x10'6/uL 03/30/2020 1:45 PM CDT [facility] HGB 9.2(L) 12.3 - 15.3 G/DL 03/30/2020 1:45 PM CDT [facility] HCT 30.1(L) 35.9 - 44.6 % 03/30/2020 1:45 PM CDT [facility] MCV 84.1 80.0 - 96.0 FL 03/30/2020 1:45 PM CDT [facility] MCH 25.7 25.3 - 30.9 PG 03/30/2020 1:45 PM CDT [facility] MCHC 30.6(L) 31.0 - 34.1 G/DL 03/30/2020 1:45 PM CDT [facility] RDW 20.0(H) 12.4 - 15.1 % 03/30/2020 1:45 PM CDT [facility] PLT 372(H) 151 - 353 x10'3/uL 03/30/2020 1:45 PM CDT [facility] MPV 8.6(L) 9.6 - 12.0 FL 03/30/2020 1:45 PM CDT [facility] SEG NEUTROPHILS 88(H) 42 - 72 % 0 1:59 PM CDT [facility] LYMPHOCYTES 9(L) 15.8 - 45.0 % 03/30/2020 1:59 PM CDT [facility] MONOCYTES 3(L) 5.7 - 12.5 % 03/30/2020 1:59 PM CDT [facility] ABS. NEUTROPHILS TOTAL 11.18(H) 1.40 - 6.00 x10'3/uL 03/30/2020 1:59 PM CDT [facility] ABS. LYMPHOCYTES 1.14 0.80 - 4.70 x10'3/uL 03/30/2020 1:59 PM CDT [facility] PLT MORPH. NORMAL 03/30/2020 1:59 PM CDT [facility] RBC MORPHOLOGY SLIGHT 03/30/2020 1:59 PM CDT [facility] Comment:ANISOCYTOSIS WBC MORPHOLOGY NORMAL 03/30/2020 1:59 PM CDT [facility] 03/30/2020 1:30 PM CDT us Pollo Hogue APRN LABORATORY Edited Result - Final [facility] [address] [place] [address], * (ABNORMAL) BASIC METABOLIC PANEL (03/23/2020 6:20 AM CDT) GLUCOSE 103(H) 70 - 99 MG/DL 03/23/2020 6:55 AM [facility] BUN 3(L) 7 - 18 MG/DL 03/23/2020 6:55 AM [facility] CREATININE S/P/B 1.07(H) 0.55 - 1.02 MG/DL 03/23/2020 6:55 AM [facility] SODIUM S/P/B 143 136 - 145 MMOL/L 03/23/2020 6:55 AM [facility] POTASSIUM S/P/B 3.7 3.5 - 5.1 MMOL/L 03/23/2020 6:55 AM [facility] CHLORIDE S/P/B 111(H) 100 - 108 MMOL/L 03/23/2020 6:55 AM [facility] CO2 23.4 21 - 32 MMOL/L 03/23/2020 6:55 AM [facility] CALCIUM S/P/B 7.1(L) 8.5 - 10.1 MG/DL 03/23/2020 6:55 AM [facility] ANION GAP 8.6 5 - 15 MMOL/L 03/23/2020 6:55 AM [facility] BUN CREATININE RATIO 2.8(L) 6 - 26 03/23/2020 6:55 AM [facility] EGFR NON-AFR. AMER. 50(L) >90 ML/MIN/1.7 3 M2 03/23/2020 6:55 AM [facility] EGFR AFR. AMER. 58(L) >90 ML/MIN/1.7 3 M2 03/23/2020 6:55 AM [facility] Comment: NOTE: eGFR is not calculated for patients <18 years of age. This is an estimated GFR (CKD EPI) and should not be used for calculating drug doses. 03/23/2020 6:20 AM CDT Pollo Farmer John RAG INSPECTOR LABORATORY Final Result [facility] [address] [place] [address], [place] [phone] * (ABNORMAL) CBC W/DIFF AUTOMATED (03/23/2020 6:20 AM CDT) WBC 8.6 4.4 - 11.0 x10'3/uL 03/23/2020 6:44 AM CDT [facility] RBC 2.97(L) 4.50 - 5.10 x10'6/uL 03/23/2020 6:44 AM CDT [facility] HGB 7.7(L) 12.3 - 15.3 G/DL 03/23/2020 6:44 AM CDT [facility] HCT 24.1(L) 35.9 - 44.6 % 03/23/2020 6:44 AM CDT [facility] MCV 81.1 80.0 - 96.0 FL 03/23/2020 6:44 AM CDT [facility] MCH 25.9 25.3 - 30.9 PG 03/23/2020 6:44 AM CDT [facility] MCHC 32.0 31.0 - 34.1 G/DL 03/23/2020 6:44 AM CDT [facility] RDW 16.6(H) 12.4 - 15.1 % 03/23/2020 6:44 AM CDT [facility] PLT 342 151 - 353 x10'3/uL 03/23/2020 6:44 AM CDT [facility] MPV 8.4(L) 9.6 - 12.0 FL 03/23/2020 6:44 AM CDT [facility] RBC MORPHOLOGY NORMAL 03/23/2020 6:44 AM CDT [facility] PLT MORPH. NORMAL 03/23/2020 6:44 AM CDT [facility] WBC MORPHOLOGY NORMAL 03/23/2020 6:44 AM CDT [facility] LYMPHOCYTES % 27.2 15.8 - 45.0 % 03/23/2020 6:44 AM CDT [facility] NEUTROPHILS % 56.9 42.1 - 71.9 % 03/23/2020 6:44 AM CDT [facility] MONOCYTES % 11.2 5.7 - 12.5 % 03/23/2020 6:44 AM CDT [facility] EOSINOPHILS 0.2 0.0 - 5.6 % 03/23/2020 6:44 AM CDT [facility] BASOPHILS 0.2 0.0 - 1.3 % 03/23/2020 6:44 AM CDT [facility] ABS. NEUTROPHILS TOTAL 4.91 1.40 - 6.00 x10'3/uL 03/23/2020 6:44 AM CDT [facility] IMMATURE GRANS % 4.3(H) 0.0 - 0.5 % 03/23/2020 6:44 AM CDT [facility] ABS. LYMPHOCYTES 2.35 0.80 - 4.70 x10'3/uL 03/23/2020 6:44 AM T [facility] 03/23/2020 6:20 AM CDT us Pollo Hogue RAG INSPECTOR LABORATORY Final Result [facility] [address] [place] [address], * (ABNORMAL) POCT glucose (03/22/2020 7:56 PM CDT) GLUCOSE POC 175(H) 70 - 110 mg/dL 03/22/2020 9:10 PM CDT [facility] 03/22/2020 7:56 PM CDT Pollo Hogue RAG INSPECTOR POCT ORDERABLES - DEVICE Final Result Performing Organization Address [facility] Co de Phone Number [facility] [address] [place] [address], [place] [phone] * CULTURE, BACTERIA, BLOOD (03/22/2020 11:57 AM CDT) SPEC DESCRIPTION BLOOD 03/22/2020 9:30 AM CDT [facility] SPECIAL REQUESTS NO SPECIAL REQUEST 03/22/2020 9:30 AM CDT [facility] CULTURE RESULT NO GROWTH 5 DAYS 03/27/2020 2:05 PM CDT [facility] BLOOD SPECIMEN OBTAINED FOR BLOOD CULTURE / Unknown 03/22/2020 11:57 AM CDT 03/22/2020 12:07 PM CDT Pollo Hogue APRN MICROBIOLOGY - GENERAL ORDERAB LES Final Result Performing Organization Address [facility] Co de Phone Number [facility] [address] [place] [address], [place] [phone] [facility] [address] [place] [address], [place] [phone] * CULTURE, BACTERIA, BLOOD (03/22/2020 11:57 AM CDT) SPEC DESCRIPTION BLOOD 03/22/2020 9:30 AM CDT [facility] SPECIAL REQUESTS NO SPECIAL REQUEST 03/22/2020 9:30 AM CDT [facility] CULTURE RESULT NO GROWTH 5 DAYS 03/27/2020 2:05 PM CDT [facility] BLOOD SPECIMEN OBTAINED FOR BLOOD CULTURE / Unknown 03/22/2020 11:57 AM CDT 03/22/2020 12:07 PM CDT Pollo Farmer John RAG INSPECTOR MICROBIOLOGY - GENERAL ORDERAB LES Final Result Performing Organization Address City/State/[facility] Co de Phone Number [facility] [address] [place] [address], [place] [phone] [facility] [address] [place] [address], [place] [phone] * Pathology (03/22/2020 10:20 AM CDT) Tissue specimen (specimen) COLON STRUCTURE / Unknown 03/22/2020 10:20 AM CDT Tissue specimen (specimen) COLON STRUCTURE / Unknown 03/22/2020 10:22 AM CDT Tissue specimen (specimen) SPECIMEN FROM RECTUM / Unknown 03/22/2020 10:24 AM CDT Narrative [facility] - 03/23/2020 5:19 PM CDT [facility] Date of Service: ??03/22/2020 Preoperative Diagnosis: ??Diarrhea and blood GROSS DESCRIPTION: ??The specimen is received in formalin in three containers on 03/22/2020. The first container is labeled with the patient's name and right colon biopsy. ??The specimen consists of at least three garcia ovoid fragments of tissue measuring 0.2 cm in greatest dimension. ??It is submitted entirely in block A. The second container is labeled with the patient's name and left colon biopsy. ??The specimen consists of at least three garcia ovoid fragments of tissue measuring 0.2 cm in greatest dimension. ??It is submitted entirely in block B. The third container is labeled with the patient's name and rectal biopsies. ??The specimen consists of three garcia ovoid fragments of tissue measuring 0.2 cm in greatest dimension. ??It is submitted entirely in block C. CPT Code: ??07992 x3 D: ??03/22/2020 02:17 PM #[id number] T: ??03/22/2020 04:47 PM /NTS A copy of this report has been sent to: [facility] [id number] PATHOLOGIC DIAGNOSIS: Right colon, colonoscopy with biopsies: - Chronic active colitis. Left colon: - Chronic active colitis. Rectum: - Chronic active colitis. MICROSCOPIC EXAMINATION: Sections of all three specimens reveal colonic mucosa with mucus secreting glands. ??The architecture is altered with decreased and shortened glands. ?? There is active crypt abscess formation and active cryptitis. ??There is focal ulceration of the mucosa surface. ??No dysplasia is seen. ??No giant cells or granulomas are seen in any of the biopsies. ??The changes are consistent with active chronic ulcerative colitis. D: ??03/23/2020 04:21 PM #[id number] T: ??03/23/2020 05:09 PM /NTS Indigo Parsons MD PATHOLOGY/CYTOLOGY ORDERABLES Fi nal Result [facility] [address] [place] [address], * (ABNORMAL) BASIC METABOLIC PANEL (03/22/2020 6:55 AM CDT) GLUCOSE 88 70 - 99 MG/DL 03/22/2020 8:34 AM CDT [facility] BUN 5(L) 7 - 18 MG/DL 03/22/2020 8:34 AM CDT [facility] CREATININE S/P/B 0.82 0.55 - 1.02 MG/DL 03/22/2020 8:34 AM CDT [facility] SODIUM S/P/B 144 136 - 145 MMOL/L 03/22/2020 8:34 AM CDT [facility] POTASSIUM S/P/B 4.1 3.5 - 5.1 MMOL/L 03/22/2020 8:34 AM CDT [facility] CHLORIDE S/P/B 112(H) 100 - 108 MMOL/L 03/22/2020 8:34 AM CDT [facility] CO2 24.4 21 - 32 MMOL/L 03/22/2020 8:34 AM CDT [facility] CALCIUM S/P/B 7.0(L) 8.5 - 10.1 MG/DL 03/22/2020 8:34 AM CDT [facility] ANION GAP 7.6 5 - 15 MMOL/L 03/22/2020 8:34 AM T [facility] BUN CREATININE RATIO 6.1 03/22/2020 8:34 AM T [facility] EGFR NON-AFR. AMER. 70(L) >90 ML/MIN/1.7 3 M2 03/22/2020 8:34 AM T [facility] EGFR AFR. AMER. 81(L) >90 ML/MIN/1.7 3 M2 03/22/2020 8:34 AM T [facility] Comment: NOTE: eGFR is not calculated for patients <18 years of age. This is an estimated GFR (CKD EPI) and should not be used for calculating drug doses. 03/22/2020 6:55 AM CDT Pollo Hogue APRN LABORATORY Final Result [facility] [address] [place] [address], [place] [phone] * (ABNORMAL) CBC W/DIFF AUTOMATED (03/22/2020 6:55 AM CDT) WBC 6.6 4.4 - 11.0 x10'3/uL 03/22/2020 7:14 AM CDT [facility] RBC 3.12(L) 4.50 - 5.10 x10'6/uL 03/22/2020 7:14 AM CDT [facility] HGB 7.8(L) 12.3 - 15.3 G/DL 03/22/2020 7:14 AM T [facility] HCT 25.2(L) 35.9 - 44.6 % 03/22/2020 7:14 AM T [facility] MCV 80.8 80.0 - 96.0 FL 03/22/2020 7:14 AM T [facility] MCH 25.0(L) 25.3 - 30.9 PG 03/22/2020 7:14 AM [facility] MCHC 31.0 31.0 - 34.1 G/DL 03/22/2020 7:14 AM [facility] RDW 16.5(H) 12.4 - 15.1 % 03/22/2020 7:14 AM [facility] PLT 321 151 - 353 x10'3/uL 03/22/2020 7:14 AM T [facility] MPV 8.0(L) 9.6 - 12.0 FL 03/22/2020 7:14 AM [facility] RBC MORPHOLOGY NORMAL 03/22/2020 7:14 AM T [facility] PLT MORPH. NORMAL 03/22/2020 7:14 AM [facility] WBC MORPHOLOGY NORMAL 03/22/2020 7:14 AM T [facility] LYMPHOCYTES % 29.5 15.8 - 45.0 % 03/22/2020 7:14 AM [facility] NEUTROPHILS % 53.5 42.1 - 71.9 % 03/22/2020 7:14 AM T [facility] MONOCYTES % 11.0 5.7 - 12.5 % 03/22/2020 7:14 AM CDT [facility] EOSINOPHILS 1.7 0.0 - 5.6 % 03/22/2020 7:14 AM CDT [facility] BASOPHILS 0.5 0.0 - 1.3 % 03/22/2020 7:14 AM CDT [facility] ABS. NEUTROPHILS TOTAL 3.54 1.40 - 6.00 x10'3/uL 03/22/2020 7:14 AM CDT [facility] IMMATURE GRANS % 3.8(H) 0.0 - 0.5 % 03/22/2020 7:14 AM CDT [facility] ABS. LYMPHOCYTES 1.95 0.80 - 4.70 x10'3/uL 03/22/2020 7:14 AM CDT [facility] 03/22/2020 6:55 AM CDT Pollo Hogue APRN LABORATORY Final Result [facility] [address] [place] [address], * (ABNORMAL) IRON SAT PANEL (IRON,IBC,%SAT) (03/22/2020 6:55 AM CDT) IRON 33(L) 50 - 170 MCG/DL 03/22/2020 7:26 AM CDT [facility] IRON BINDING CAPACITY 133(L) 250 - 450 MCG/DL 03/22/2020 7:26 AM CDT [facility] IRON SATURATION 25 20 - 55 % 0 7:26 AM CDT [facility] 03/22/2020 6:55 AM CDT Durga Parekh MD LABORATORY Final Result [facility] [address] [place] [address], [place] [phone] * (ABNORMAL) VITAMIN B12 / FOLATE (03/22/2020 6:55 AM CDT) VITAMIN B12 S/P/B 4,687(H) 193 - 986 PG/ML 03/22/2020 8:34 AM CDT [facility] FOLATE 6.0(L) 8.6 - 58.9 NG/ML 03/22/2020 8:34 AM CDT [facility] 03/22/2020 6:55 AM CDT Durga Parekh MD LABORATORY Final Result Performing Organization Address [facility] Co de Phone Number [facility] [address] [place] [address], [place] [phone] * POCT glucose (03/22/2020 5:59 AM CDT) GLUCOSE POC 100 70 - 110 mg/dL 03/22/2020 6:11 AM CDT [facility] 03/22/2020 5:59 AM CDT Pollo Hogue APRN POCT ORDERABLES - DEVICE Final Result Performing Organization Address City/[facility]/ZIP Co de Phone Number [facility] [address] [place] [address], [place] [phone] * (ABNORMAL) POCT glucose (03/21/2020 8:25 PM CDT) GLUCOSE POC 137(H) 70 - 110 mg/dL 03/21/2020 8:55 PM CDT [facility] 03/21/2020 8:25 PM CDT Pollo Darian John RAG INSPECTOR POCT ORDERABLES - DEVICE Final Result Performing Organization Address City/[facility]/ZIP Co de Phone Number [facility] [address] [place] [address], [place] [phone] * POCT glucose (03/21/2020 4:13 PM CDT) GLUCOSE POC 100 70 - 110 mg/dL 03/21/2020 5:30 PM CDT [facility] 03/21/2020 4:13 PM CDT Pollo Farmer John RAG INSPECTOR POCT ORDERABLES - DEVICE Final Result Performing Organization Address [facility] Co de Phone Number [facility] [address] [place] [address], [place] [phone] * (ABNORMAL) BASIC METABOLIC PANEL (03/21/2020 12:09 PM CDT) GLUCOSE 100(H) 70 - 99 MG/DL 03/21/2020 12:42 PM CDT [facility] BUN 9 7 - 18 MG/DL 03/21/2020 12:42 PM CDT [facility] CREATININE S/P/B 0.84 0.55 - 1.02 MG/DL 03/21/2020 12:42 PM CDT [facility] SODIUM S/P/B 141 136 - 145 MMOL/L 03/21/2020 12:42 PM CDT [facility] POTASSIUM S/P/B 4.5 3.5 - 5.1 MMOL/L 03/21/2020 12:42 PM CDT [facility] CHLORIDE S/P/B 111(H) 100 - 108 MMOL/L 03/21/2020 12:42 PM CDT [facility] CO2 19.7(L) 21 - 32 MMOL/L 03/21/2020 12:42 PM CDT [facility] CALCIUM S/P/B 7.2(L) 8.5 - 10.1 MG/DL 03/21/2020 12:42 PM CDT [facility] ANION GAP 10.3 5 - 15 MMOL/L 03/21/2020 12:42 PM CDT [facility] BUN CREATININE RATIO 10.7 6 - 26 03/21/2020 12:42 PM CDT [facility] EGFR NON-AFR. AMER. 68(L) >90 ML/MIN/1.7 3 M2 03/21/2020 12:42 PM CDT [facility] EGFR AFR. AMER. 78(L) >90 ML/MIN/1.7 3 M2 03/21/2020 12:42 PM CDT [facility] Comment: NOTE: eGFR is not calculated for patients <18 years of age. This is an estimated GFR (CKD EPI) and should not be used for calculating drug doses. 03/21/2020 12:0 9 PM CDT Pollo Hogue APRN LABORATORY Final Result [facility] [address] [place] [address], * (ABNORMAL) CBC W/DIFF AUTOMATED (03/21/2020 12:09 PM CDT) WBC 7.3 4.4 - 11.0 x10'3/uL 03/21/2020 12:22 PM CDT [facility] RBC 3.22(L) 4.50 - 5.10 x10'6/uL 03/21/2020 12:22 PM CDT [facility] HGB 8.2(L) 12.3 - 15.3 G/DL 03/21/2020 12:22 PM CDT [facility] HCT 26.6(L) 35.9 - 44.6 % 03/21/2020 12:22 PM T [facility] MCV 82.6 80.0 - 96.0 FL 03/21/2020 12:22 PM CDT [facility] MCH 25.5 25.3 - 30.9 PG 03/21/2020 12:22 PM T [facility] MCHC 30.8(L) 31.0 - 34.1 G/DL 03/21/2020 12:22 PM T [facility] RDW 16.7(H) 12.4 - 15.1 % 03/21/2020 12:22 PM [facility] PLT 345 151 - 353 x10'3/uL 03/21/2020 12:22 PM T [facility] MPV 8.6(L) 9.6 - 12.0 FL 03/21/2020 12:22 PM T [facility] RBC MORPHOLOGY NORMAL 03/21/2020 12:22 PM [facility] PLT MORPH. NORMAL 03/21/2020 12:22 PM [facility] WBC MORPHOLOGY NORMAL 03/21/2020 12:22 PM [facility] LYMPHOCYTES % 23.1 15.8 - 45.0 % 03/21/2020 12:22 PM [facility] NEUTROPHILS % 60.5 42.1 - 71.9 % 03/21/2020 12:22 PM T [facility] MONOCYTES % 11.5 5.7 - 12.5 % 03/21/2020 12:22 PM [facility] EOSINOPHILS 1.5 0.0 - 5.6 % 03/21/2020 12:22 PM T [facility] BASOPHILS 0.5 0.0 - 1.3 % 03/21/2020 12:22 PM CDT [facility] ABS. NEUTROPHILS TOTAL 4.40 1.40 - 6.00 x10'3/uL 03/21/2020 12:22 PM CDT [facility] IMMATURE GRANS % 2.9(H) 0.0 - 0.5 % 03/21/2020 12:22 PM CDT [facility] ABS. LYMPHOCYTES 1.68 0.80 - 4.70 x10'3/uL 03/21/2020 12:22 PM CDT [facility] 03/21/2020 12:0 9 PM CDT us Pollo Hogue RAG INSPECTOR LABORATORY Final Result Performing Organization Address City/State/[facility] Co de Phone Number [facility] [address] [place] [address], [place] [phone] * US RETROPERITONEAL COMP (03/21/2020 10:53 AM CDT) Anatomical Region Laterality Modality Abdomen Ultrasound 03/21/2020 12:2 3 PM CDT Impressions 03/21/2020 12:26 PM CDT IMPRESSION: Within the left kidney there are 3 hypoechoic cystic areas measuring 14 x 14 x 14 mm (inferiorly), 9 x 10 x 9 mm (mid kidney) and 9 x 10 x 10 mm (superior kidney). The lesion in the mid portions of the kidney corresponds with the CT abnormality (Hounsfield units 7). No vascularity. Suspect cyst. 2 cysts are also noted within the right kidney measuring 14 x 12 x 10 mm and 11 x 10 mm. No significant hydronephrosis. Left ureteral jet noted within the bladder. Right kidney measures 100 x 48 x 43 mm left kidney measures 105 x 46 x 39 mm. Interpreted By: Driss Garcia, 03/21/2020 12:23 PM Narrative 03/21/2020 12:26 PM CDT IMAGING STUDIES:US RETROPERITONEAL COMP ? DATE: 03/21/2020 9:33 AM INDICATION: left renal lesion noted on CT ?? COMPARISON: CT 03/19/2020 TECHNIQUE: Examination performed by chair car attendant using grayscale with color flow and spectral Doppler. Selected images submitted for interpretation. Worksheet completed. Procedure Note Driss Garcia MD - 03/21/2020 IMAGING STUDIES:US RETROPERITONEAL COMP DATE: 03/21/2020 9:33 AM INDICATION: left renal lesion noted on CT COMPARISON: CT 03/19/2020 TECHNIQUE: Examination performed by chair car attendant using grayscalewith color flow and spectral Doppler. Selected images submitted for interpretation. Worksheet completed. IMPRESSION: Within the left kidney there are 3 hypoechoic cystic areas measuring 14x 14 x 14 mm (inferiorly), 9 x 10 x 9 mm (mid kidney) and 9 x 10 x 10 mm (superior kidney). The lesion in the mid portions of the kidneycorresponds with the CT abnormality (Hounsfield units 7). No vascularity. Suspectcyst. 2 cysts are also noted within the right kidney measuring 14 x 12 x 10 mm and 11 x 10 mm. No significant hydronephrosis. Left ureteral jet noted within thebladder. Right kidney measures 100 x 48 x 43 mm left kidney measures 105 x 46 x39 mm. Interpreted By: Driss Garcia, 03/21/2020 12:23 PM Cara Alvarado RAG INSPECTOR ULTRASOUND Final Re sult * POCT glucose (03/21/2020 6:07 AM CDT) GLUCOSE POC 107 70 - 110 mg/dL 03/21/2020 6:12 AM CDT [facility] 03/21/2020 6:07 AM CDT Durga Parekh MD POCT ORDERABLES - DEVICE Final Result [facility] [address] [place] [address], * O&P CONC&SMEAR TO REF LAB (03/20/2020 12:25 PM CDT) SPECIMEN SOURCE STOOL 0 12:54 PM CDT [facility] O & P EXAMINATION (STOOL) REPORT 03/29/2020 8:32 PM CDT [employer] Comment: Ova and Parasites, Concentrate and Permanent Smear Examination for Ova and Parasites SOURCE : STOOL Result/Comment: NO OVA AND PARASITES SEEN. Reference Range: ??No Ova and Parasites seen Routine Ova and Parasite Exam may not detect some parasites that occasionally cause diarrheal illness. Test code(s) 19423B[81687](Cryptosporidium Ag, DFA) and/or 42200J[59711] (Cyclospora and Isospora Exam) may be ordered to detect these parasites. One negative sample does not necessarily rule out the presence of a parasitic infection. Assay performed by wet mount after concentration. Parasite Exam, Trichrome Stain SOURCE : STOOL Result/Comment: NO OVA AND PARASITES SEEN. Routine Ova and Parasite Exam may not detect some parasites that occasionally cause diarrheal illness. Test code(s) 35066I[36367](Cryptosporidium Ag, DFA) and/or 70105S[02138] (Cyclospora and Isospora Exam) may be ordered to detect these parasites. One negative sample does not necessarily rule out the presence of a parasitic infection. For additional information, please refer to https://education.Kahnoodle/faq/IDB860 (This link is being provided for informational/ educational purposes only.) Test Performed by [employer], [facility], [address] [place] [id number] Gamal Gao M.D., Ph.D., Director of Laboratories , CLIA [id number] STOOL SPECIMEN / Unknown 03/20/2020 12:25 PM CDT Durga Parekh MD MICROBIOLOGY - GENERAL ORDERAB LES Final Result [facility] Patient Feed [facility] [address] [place] [address], [place] [phone] [facility] [address] [place] [address], [place] [phone] * CLOSTRIDIUM DIFFICILE (03/20/2020 11:25 AM CDT) C DIFFICILE TOXIN (STOOL) NEGATIVE NEGATIVE 03/20/2020 2:14 PM CDT [facility] STOOL SPECIMEN / Unknown 03/20/2020 11:25 AM CDT Durga Parekh MD BODY FLUIDS AND STOOLS ORDERAB LES Final Result Performing Organization Address [facility]/ZIP Co de Phone Number [facility] [address] [place] [address], [place] [phone] * (ABNORMAL) LIPID PANEL (03/20/2020 5:30 AM CDT) CHOLESTEROL 51 <200.0 MG/DL 03/20/2020 6:40 AM CDT [facility] TRIGLYCERIDES 47 <150 MG/DL 03/20/2020 6:40 AM CDT [facility] HDL 36(L) >40.0 MG/DL 03/20/2020 6:40 AM CDT [facility] LDL (CALCULATED) 6 <100 MG/DL 03/20/20 20 6:40 AM CDT [facility] NON HDL CHOLESTEROL 15 <130 MG/DL 03/20 6:40 AM CDT [facility] CHOL/HDL RATIO 1.4 0.0 - 4.5 03/20/2020 6:40 AM CDT [facility] VLDL CALCULATION 9 5 - 55 MG/DL 03/20/2020 6:40 AM CDT [facility] LIPID INTERPRETATION 03/20/2020 6:40 AM CDT [facility] Comment: [facility] REPORT RECOMMENDATIONS: ?ADULT ?CHILD ??LOW RISK: ?CHOLESTEROL ? <200 ? <170 ?TRIGLYCERIDE ?<150 ?--- ?HDL ? >=60 ?--- ?LDL ? <100 ? <110 ??BORDERLINE: ?CHOLESTEROL ? 200-239 ?? 170-199 ?TRIGLYCERIDE ?150-199 ? --- ?HDL ?40-59 ?--- ?LDL ? 100-159 ?? 110-129 ??HIGH RISK: ?CHOLESTEROL ? >=240 ?>=200 ?TRIGLYCERIDE ?>=200 ? --- ?HDL ?<40 ?--- ?LDL ? >=160 ?>=130 03/20/2020 5:30 AM CDT us Madison Aaron MD LABORATORY Final Result Performing Organization Address City/[facility]/ZIP Co de Phone Number [facility] [address] [place] [address], * (ABNORMAL) MAGNESIUM (03/20/2020 5:30 AM CDT) MAGNESIUM 1.6(L) 1.8 - 2.4 MG/DL 03/20/2020 6:38 AM CDT [facility] 03/20/2020 5:30 AM CDT Madison Aaron MD LABORATORY Final Result Performing Organization Address [facility] Co de Phone Number [facility] [address] [place] [address], [place] [phone] * (ABNORMAL) BASIC METABOLIC PANEL (03/20/2020 5:30 AM CDT) GLUCOSE 74 70 - 99 MG/DL 03/20/2020 6:38 AM CDT [facility] BUN 24(H) 7 - 18 MG/DL 03/20/2020 6:38 AM CDT [facility] CREATININE S/P/B 1.59(H) 0.55 - 1.02 MG/DL 03/20/2020 6:38 AM CDT [facility] SODIUM S/P/B 140 136 - 145 MMOL/L 03/20/2020 6:38 AM CDT [facility] POTASSIUM S/P/B 5.0 3.5 - 5.1 MMOL/L 03/20/2020 6:38 AM CDT [facility] CHLORIDE S/P/B 110(H) 100 - 108 MMOL/L 03/20/2020 6:38 AM CDT [facility] CO2 20.2(L) 21 - 32 MMOL/L 03/20/2020 6:38 AM CDT [facility] CALCIUM S/P/B 7.4(L) 8.5 - 10.1 MG/DL 03/20/2020 6:38 AM CDT [facility] ANION GAP 9.8 5 - 15 MMOL/L 03/20/2020 6:38 AM CDT [facility] BUN CREATININE RATIO 15.1 6 - 26 03/20/2020 6:38 AM T [facility] EGFR NON-AFR. AMER. 31(L) >90 ML/MIN/1.7 3 M2 03/20/2020 6:38 AM CDT [facility] EGFR AFR. AMER. 36(L) >90 ML/MIN/1.7 3 M2 03/20/2020 6:38 AM T [facility] Comment: NOTE: eGFR is not calculated for patients <18 years of age. This is an estimated GFR (CKD EPI) and should not be used for calculating drug doses. 03/20/2020 5:30 AM CDT Madison Aaron MD LABORATORY Final Result [facility] [address] [place] [address], * (ABNORMAL) CBC W/DIFF AUTOMATED (03/20/2020 5:30 AM CDT) WBC 11.2(H) 4.4 - 11.0 x10'3/uL 03/20/2020 6:30 AM CDT [facility] RBC 3.10(L) 4.50 - 5.10 x10'6/uL 03/20/2020 6:30 AM CDT [facility] HGB 7.8(L) 12.3 - 15.3 G/DL 03/20/2020 6:30 AM CDT [facility] HCT 25.6(L) 35.9 - 44.6 % 03/20/2020 6:30 AM T [facility] MCV 82.6 80.0 - 96.0 FL 03/20/2020 6:30 AM [facility] MCH 25.2(L) 25.3 - 30.9 PG 03/20/2020 6:30 AM T [facility] MCHC 30.5(L) 31.0 - 34.1 G/DL 03/20/2020 6:30 AM [facility] RDW 16.1(H) 12.4 - 15.1 % 03/20/2020 6:30 AM [facility] PLT 336 151 - 353 x10'3/uL 03/20/2020 6:30 AM [facility] MPV 9.0(L) 9.6 - 12.0 FL 03/20/2020 6:30 AM [facility] RBC MORPHOLOGY NORMAL 03/20/2020 6:30 AM [facility] PLT MORPH. NORMAL 03/20/2020 6:30 AM [facility] WBC MORPHOLOGY NORMAL 03/20/2020 6:30 AM [facility] LYMPHOCYTES % 15.5(L) 15.8 - 45.0 % 03/20/2020 6:30 AM T [facility] NEUTROPHILS % 70.7 42.1 - 71.9 % 03/20/2020 6:30 AM T [facility] MONOCYTES % 11.5 5.7 - 12.5 % 03/20/2020 6:30 AM [facility] EOSINOPHILS 0.8 0.0 - 5.6 % 03/20/2020 6:30 AM [facility] BASOPHILS 0.3 0.0 - 1.3 % 03/20/2020 6:30 AM CDT [facility] ABS. NEUTROPHILS TOTAL 7.93(H) 1.40 - 6.00 x10'3/uL 03/20/2020 6:30 AM CDT [facility] IMMATURE GRANS % 1.2(H) 0.0 - 0.5 % 03/20/2020 6:30 AM CDT [facility] ABS. LYMPHOCYTES 1.74 0.80 - 4.70 x10'3/uL 03/20/2020 6:30 AM CDT [facility] 03/20/2020 5:30 AM CDT us Madison Aaron MD LABORATORY Final Result Performing Organization Address [facility]/ZIP Co de Phone Number [facility] [address] [place] [address], [place] [phone] * CULTURE, BACTERIA, BLOOD (03/20/2020 5:21 AM CDT) SPEC DESCRIPTION BLOOD 03/19/2020 11:05 PM CDT [facility] SPECIAL REQUESTS NO SPECIAL REQUEST 03/19/2020 11:05 PM CDT [facility] CULTURE RESULT NO GROWTH 5 DAYS 2020 3:42 PM CDT [facility] BLOOD SPECIMEN OBTAINED FOR BLOOD CULTURE / Unknown 03/20/2020 5:21 AM CDT 03/20/2020 5:22 AM CDT Mahesh Nelson MD MICROBIOLOGY - GENERAL MIA LEARY Final Result [facility] [address] [place] [address], [place] [phone] [facility] [address] [place] [address], [place] [phone] * (ABNORMAL) CULTURE, BACTERIA, BLOOD (03/20/2020 5:21 AM CDT) SPEC DESCRIPTION BLOOD 03/19/2020 11:05 PM CDT [facility] SPECIAL REQUESTS NO SPECIAL REQUEST 03/19/2020 11:05 PM CDT [facility] GRAM STAIN RESULT MODERATE GRAM POSITIVE COCCI RESEMBLING STAPHYLOCOCCUS SPECIES 03/22/2020 2:54 AM CDT [facility] CULTURE RESULT GROWTH OF STAPH. SPECIES NOT STAPH. AUREUS SUSCEPTIBILTY NOT ROUTINELY PERFORMED. SAVING ISOLATE FOR 5 DAYS. CONTACT MICROBIOLOGY DEPARTMENT IF FURTHER WORKUP IS INDICATED. (AA) 03/23/2020 9:47 AM CDT [facility] CULTURE RESULT CALLED TO AND READ BACK BY CHIKA BORREGO ON 03/22/20 AT 0250 BY [facility] 03/23/2020 9:47 AM CDT [facility] BLOOD SPECIMEN OBTAINED FOR BLOOD CULTURE / Unknown 03/20/2020 5:21 AM CDT 03/20/2020 5:22 AM CDT Mahesh Nelson MD MICROBIOLOGY - GENERAL MIA LEARY Final Result [facility] [address] [place] [address], [facility] [address] [place] [address], * ECG 12 lead (03/19/2020 11:20 PM CDT) 03/19/2020 11:2 0 PM CDT Narrative [facility] ([facility]) RAD - 03/20/2020 7:18 AM CDT ?[facility] ? Test Date: ?2020-03-19 Pat Name: ? RADHA ALLEN ? Department: ? Room: ? 120 Gender: ? Female ? Template Inspector: ?? : ?1945 ? Requested By: MAHESH BRAHMAVAR Order Number: [id number] ? Reading MD: ?? Keven Gunter ? Measurements Intervals ?[place] ? Rate: ? 78 ? P: ?53 PA: ? 137 ?QRS: ?22 QRSD: ? 87 ? T: ?12 QT: ? 355 ? QTc: ?405 ? Interpretive Statements SINUS RHYTHM LOW QRS VOLTAGE IN PRECORDIAL LEADS ?? No previous ECG available for comparison Procedure Note Keven Gunter MD - 03/20/2020 [facility] Test Date: 2020-03-19 Pat Name: RADHA ALLEN Department: Room: 120 Gender: Female Template Inspector: : 1945 Requested By: MAHESH NELSON Order Number: [id number] Reading MD: Keven Gunter Measurements Intervals [place]pine Rate: 78 P: 53 PA: 137 QRS: 22 QRSD: 87 T: 12 QT: 355 QTc: 405 Interpretive Statements SINUS RHYTHM LOW QRS VOLTAGE IN PRECORDIAL LEADS No previous ECG available for comparison us Mahesh Nelson MD ECG ORDERABLES Final Resul t [facility] ([facility]) RAD * CT ABD+PEL WO CON (03/19/2020 9:49 PM CDT) Anatomical Region Laterality Modality Abdomen Computed Tomogra phy 03/20/2020 8:26 AM CDT Narrative 03/20/2020 8:32 AM CDT IMAGING STUDIES: ??CT ABD+PEL WO CON ? DATE: ??03/19/2020 9:23 PM COMPARISON STUDIES: No previous available. ?? CLINICAL HISTORY: ??low abd pain, intermittent diarrhea for weeks, worse x 2 days Abdominal pain, unspecified ? . TECHNIQUE: ??Helical axial images were acquired from the lung bases to symphysis pubis. ??Sagittal and coronal reconstructions were obtained. Radiation dose reduction technique was utilized. FINDINGS AND IMPRESSION (Limited exam due to the lack of intravenous contrast administration and motion artifact): LOWER CHEST: 1. ??Lungs: Lungs bases are clear. No pleural effusion. 2. ??Visible mediastinum: Cardiomegaly.. ABDOMEN: 1. ??Liver: Hepatic steatosis. 2. ??Gallbladder: Normal in appearance. Noncalcified gallstones might not be visible on CT.. 3. ??Spleen: No lesions, no splenomegaly. 4. ??Pancreas: No focal lesions. 5. ??Adrenal glands: No focal lesions. 6. ??Kidneys: Punctate calcification and small hyperdense cyst right kidney 10 mm as well as 14 mm cystic lesion left kidney which cannot be appropriately characterize on this exam, consider contrast CT or ultrasound to further evaluate. ? No hydroureter or obvious distal stones. 7. ??Retroperitoneal space: No lymphadenopathy or masses. No mesenteric lymphadenopathy or edema. 8. ??Stomach and bowel: Nonobstructive pattern. No free air. 9. ??Aorta: No significant atherosclerotic disease or aneurysmal dilation. ?? PELVIS: 1. ??Appendix: Not pathologically distended. 2. ??Colon and rectum: Not obstructed. No acute diverticulitis. Dr. Moore concern about the possibility of mild nonspecific colitis in his preliminary report. 3. ??Uterus and adnexa: No obvious masses. 4. ??Urinary bladder: No stones or abnormal wall thickening. 5. ??Pelvic space: Obscured by artifact. BONES AND OTHER INCIDENTAL FINDINGS: 1. ??Bones: Total left hip arthroplasty, protrusio acetabuli. Right hip degenerative changes and degenerative changes of the lumbar spine, scoliosis. Degenerative changes sacroiliac joints. ? Preliminary report rendered by Dr. Driss Moore immediately after the examination was completed. ? Voice recognition software utilized. Interpreted By: Pradeep Dejesus, 03/20/2020 8:26 AM Procedure Note Pradeep Dejesus MD - 03/20/2020 IMAGING STUDIES: CT ABD+PEL WO CON DATE: 03/19/2020 9:23 PM COMPARISON STUDIES: No previous available. CLINICAL HISTORY: low abd pain, intermittent diarrhea for weeks, worse x2 days Abdominal pain, unspecified . TECHNIQUE: Helical axial images were acquired from the lung bases to symphysis pubis. Sagittal and coronal reconstructions were obtained. Radiation dose reduction technique was utilized. FINDINGS AND IMPRESSION (Limited exam due to the lack of intravenous contrast administration and motion artifact): LOWER CHEST: 1. Lungs: Lungs bases are clear. No pleural effusion. 2. Visible mediastinum: Cardiomegaly.. ABDOMEN: 1. Liver: Hepatic steatosis. 2. Gallbladder: Normal in appearance. Noncalcified gallstones might notbe visible on CT.. 3. Spleen: No lesions, no splenomegaly. 4. Pancreas: No focal lesions. 5. Adrenal glands: No focal lesions. 6. Kidneys: Punctate calcification and small hyperdense cyst rightkidney 10 mm as well as 14 mm cystic lesion left kidney which cannot be appropriately characterize on this exam, consider contrast CT orultrasound to further evaluate. No hydroureter or obvious distal stones. 7. Retroperitoneal space: No lymphadenopathy or masses. No mesenteric lymphadenopathy or edema. 8. Stomach and bowel: Nonobstructive pattern. No free air. 9. Aorta: No significant atherosclerotic disease or aneurysmal dilation. PELVIS: 1. Appendix: Not pathologically distended. 2. Colon and rectum: Not obstructed. No acute diverticulitis. concern about the possibility of mild nonspecific colitis in his preliminary report. 3. Uterus and adnexa: No obvious masses. 4. Urinary bladder: No stones or abnormal wall thickening. 5. Pelvic space: Obscured by artifact. BONES AND OTHER INCIDENTAL FINDINGS: 1. Bones: Total left hip arthroplasty, protrusio acetabuli. Right hip degenerative changes and degenerative changes of the lumbar spine, scoliosis. Degenerative changes sacroiliac joints. Preliminary report rendered by Dr. Driss Moore immediately after the examination was completed. Voice recognition software utilized. Interpreted By: Pradeep Dejesus, 03/20/2020 8:26 AM us Mahesh Nelson MD CT Final Resul t * LACTIC ACID (03/19/2020 8:45 PM CDT) LACTIC ACID VENOUS 1.5 0.4 - 2.0 MMOL/L 03/19/2020 9:24 PM CDT [facility] 03/19/2020 8:45 PM CDT us Mahesh Nelson MD LABORATORY Final Resul t Performing Organization Address [facility] Co de Phone Number [facility] [address] [place] [address], [place] [phone] * LIPASE (03/19/2020 8:45 PM CDT) LIPASE 74 73 - 393 UNITS/L 03/19/2020 9:19 PM CDT [facility] 03/19/2020 8:45 PM CDT us Mahesh Nelson MD LABORATORY Final Resul t Performing Organization Address [facility] Co de Phone Number [facility] [address] [place] [address], [place] [phone] * (ABNORMAL) COMPREHENSIVE METABOLIC PANEL (03/19/2020 8:45 PM CDT) GLUCOSE 107(H) 70 - 99 MG/DL 03/19/2020 9:19 PM CDT [facility] BUN 28(H) 7 - 18 MG/DL 03/19/2020 9:19 PM [facility] CREATININE S/P/B 2.27(H) 0.55 - 1.02 MG/DL 03/19/2020 9:19 PM [facility] SODIUM S/P/B 135(L) 136 - 145 MMOL/L 03/19/2020 9:19 PM [facility] POTASSIUM S/P/B 5.3(H) 3.5 - 5.1 MMOL/L 03/19/2020 9:19 PM [facility] CHLORIDE S/P/B 102 100 - 108 MMOL/L 03/19/2020 9:19 PM [facility] CO2 20.2(L) 21 - 32 MMOL/L 03/19/2020 9:19 PM [facility] CALCIUM S/P/B 8.4(L) 8.5 - 10.1 MG/DL 03/19/2020 9:19 PM [facility] BILIRUBIN TOTAL S/P/B 0.4 0.2 - 1.2 MG/DL 03/19/2020 9:19 PM [facility] TOTAL PROTEIN S/P/B 7.4 6.4 - 8.2 G/DL 03/19/2020 9:19 PM [facility] ALBUMIN S/P/B 2.5(L) 3.4 - 5.0 G/DL 03/19/2020 9:19 PM [facility] AST 21 15 - 37 U/L 03/19/2020 9:19 PM [facility] ALT 16 14 - 55 U/L 03/19/2020 9:19 PM [facility] ALKALINE PHOSPHATASE S/P/B 103 50 - 136 U/L 03/19/2020 9:19 PM [facility] ANION GAP 12.8 5 - 15 MMOL/L 03/19/2020 9:19 PM CDT [facility] BUN CREATININE RATIO 12.3 6 - 26 03/19/2020 9:19 PM CDT [facility] A/G RATIO 0.5(L) 1.0 - 2.0 RATIO 03/19/2020 9:19 PM CDT [facility] EGFR NON-AFR. AMER. 20(L) >90 ML/MIN/1.7 3 M2 03/19/2020 9:19 PM CDT [facility] EGFR AFR. AMER. 24(L) >90 ML/MIN/1.7 3 M2 03/19/2020 9:19 PM CDT [facility] Comment: NOTE: eGFR is not calculated for patients <18 years of age. This is an estimated GFR (CKD EPI) and should not be used for calculating drug doses. 03/19/2020 8:45 PM CDT us Mahesh Nelson MD LABORATORY Final Resul t [facility] [address] [place] [address], [place] [phone] * (ABNORMAL) CBC W/DIFF AUTOMATED (03/19/2020 8:45 PM CDT) WBC 18.1(H) 4.4 - 11.0 x10'3/uL 03/19/2020 9:03 PM CDT [facility] RBC 3.78(L) 4.50 - 5.10 x10'6/uL 03/19/2020 9:03 PM CDT [facility] HGB 9.5(L) 12.3 - 15.3 G/DL 03/19/2020 9:03 PM CDT [facility] HCT 31.0(L) 35.9 - 44.6 % 03/19/2020 9:03 PM CDT [facility] MCV 82.0 80.0 - 96.0 FL 03/19/2020 9:03 PM T [facility] MCH 25.1(L) 25.3 - 30.9 PG 03/19/2020 9:03 PM T [facility] MCHC 30.6(L) 31.0 - 34.1 G/DL 03/19/2020 9:03 PM T [facility] RDW 16.0(H) 12.4 - 15.1 % 03/19/2020 9:03 PM T [facility] PLT 476(H) 151 - 353 x10'3/uL 03/19/2020 9:03 PM T [facility] MPV 8.7(L) 9.6 - 12.0 FL 03/19/2020 9:03 PM T [facility] SEG NEUTROPHILS 76(H) 42 - 72 % 0 9:20 PM T [facility] BANDS 2 % 03/19/2020 9:20 PM T [facility] LYMPHOCYTES 13(L) 15.8 - 45.0 % 03/19/2020 9:20 PM T [facility] MONOCYTES 9 5.7 - 12.5 % 03/19/2020 9:20 PM T [facility] ABS. NEUTROPHILS TOTAL 14.12(H) 1.40 - 6.00 x10'3/uL 03/19/2020 9:20 PM T [facility] ABS. LYMPHOCYTES 2.35 0.80 - 4.70 x10'3/uL 03/19/2020 9:20 PM T [facility] PLT MORPH. NORMAL 03/19/2020 9:20 PM T [facility] RBC MORPHOLOGY NORMAL 03/19/2020 9:20 PM CDT [facility] WBC MORPHOLOGY NORMAL 03/19/2020 9:20 PM CDT [facility] 03/19/2020 8:45 PM CDT Mahesh Nelson MD LABORATORY Final Resul t [facility] [address] [place] [address], [place] [phone] documented in this encounter Visit Diagnoses Diagnosis Colitis- Primary Other and unspecified noninfectious gastroenteritis and colitis JENNY (acute kidney injury) ([facility]) Acute kidney failure, unspecified Colitis Other and unspecified noninfectious gastroenteritis and colitis Ulcerative colitis without complications, unspecified location ([facility]) Iron deficiency anemia, unspecified iron deficiency anemia type documented in this encounter Admitting Diagnoses Diagnosis Colitis Other and unspecified noninfectious gastroenteritis and colitis documented in this encounter Administered Medications Inactive Administered Medications - up to 3 most recent administrations Medication Order MAR Action Action Date Dose Rate Site amLODIPine (NORVASC) tablet 5 mg 5 mg, Oral, Daily, First dose on Fri03/23/20 at 0900, Until Discontinued Given 03/23/2020 10:05 AM CDT 5 mg aspirin EC (ECOTRIN) tablet 81 mg 81 mg, Oral, Nightly, First dose (after last modification) on 03/20/20 at 2100, Until Discontinued, Do not break, chew, or crush. Given 03/22/2020 8:50 PM CDT 81 mg Given 03/21/2020 8:22 PM CDT 81 mg Given 03/20/2020 8:22 PM CDT 81 mg cefTRIAXone (ROCEPHIN) 1 g in sterile water 10 mL IV 1 g, Intravenous, at 120 mL/hr, Every 24 hours, First dose on Fri03/22/20 at 1000, Until Discontinued Given 03/23/2020 10:00 AM CDT 1 g 120 m L/hr Given 03/22/2020 10:53 AM CDT 1 g 120 mL/hr cholestyramine (QUESTRAN) packet 4 g 4 g, Oral, 2 times daily with meals, First dose on Fri03/20/20 at 0800, Until Discontinued, Mix packet contents with 60-180ml non-carbonated liquid Given 03/20/2020 8:28 AM CDT 4 g enoxaparin (LOVENOX) 30 MG/0.3ML syringe 30 mg 30 mg, Subcutaneous, Every 24 hours, First dose on Fri03/20/20 at 0915, Until Discontinued, Renally adjusted for CrCl less than 30 ml/min at 27 ml/min. Administer by deep SubQ injection alternating between the left or right anterolateral and left or right posterolateral abdominal wall. Given 03/21/2020 9:06 AM CDT 30 mg Right Lower Abdomen Given 03/20/2020 9:55 AM CDT 30 mg Le ft Lower Abdomen enoxaparin (LOVENOX) 40 MG/0.4ML syringe 40 mg 40 mg, Subcutaneous, Every 24 hours, First dose (after last modification) on Fri03/22/20 at 0900, Until Discontinued, Renally adjusted for CrCl less than 30 ml/min at 27 ml/min. Administer by deep SubQ injection alternating between the left or right anterolateral and left or right posterolateral abdominal wall. Given 03/23/2020 10:04 AM CDT 40 mg Left Lower Abdomen lactated ringers infusion at 100 mL/hr, Intravenous, Continuous, Starting on Fri03/22/20 at 0930, Until Fri03/22/20 at 1537, For procedure New Bag 03/22/2020 9:00 AM CDT 100 mL/hr magnesium sulfate IVPB 2 g 2 g, Intravenous, at 25 mL/hr, Once, 1 dose, On Fri03/20/20 at 1530 New Bag 03/20/2020 3:22 PM CDT 2 g 25 mL/hr methylPREDNISolone sodium succinate (SOLU-Medrol) injection 40 mg 40 mg, Intravenous, Daily, First dose on Fri03/22/20 at 1415, Until Discontinued, If ordered IV, administer into a vein over 3-15 minutes. Doses >= 2 mg/kg or 250mg should be given by infusion, unless the benefits of IV injection outweigh the risks (life-threatening shock) Given 03/23/2020 9:54 AM CDT 40 mg Given 03/22/2020 2:38 PM CDT 40 mg metoprolol tartrate (LOPRESSOR) tablet 50 mg 50 mg, Oral, 2 times daily, First dose on Fri03/22/20 at 2100, Until Discontinued, Hold for BP <100 or HR <60 Given 03/23/2020 10:06 AM CDT 50 mg Given 03/22/2020 8:50 PM CDT 50 mg metroNIDAZOLE (FLAGYL) IVPB 500 mg 500 mg, Intravenous, at 100 mL/hr, Every 8 hours, First dose on Fri03/22/20 at 1000, Until Discontinued 03/23/2020 10:16 AM CDT 500 mg 100 mL/hr 03/23/2020 2:45 AM CDT 500 mg 100 mL/hr 03/22/2020 5:41 PM CDT 500 mg 100 mL/hr pantoprazole EC (PROTONIX) tablet 40 mg 40 mg, Oral, Nightly at bedtime, First dose (after last modification) on Fri03/20/20 at 2100, Until Discontinued, Do not break, chew, or crush. Given 03/22/2020 8:50 PM CDT 40 mg Given 03/21/2020 8:22 PM CDT 40 mg Given 03/20/2020 8:22 PM CDT 40 mg pharmacy to dose vancomycin placeholder Intravenous, See admin instructions, Starting on Fri03/22/20 at 0350, Until Fri03/23/20 at 1948, Vancomycin Placeholder Only: Do NOT document administrations on this placeholder.(Use medication on SEP to document administrations or contact pharmacy if medication order not entered.) piperacillin-tazobactam (ZOSYN) 3.375 g in sodium chloride 0.9 % 50 mL IVPB 3.375 g, Intravenous, Administer over 30 Minutes, Once, 1 dose, On Fri03/19/20 at 2315 03/19/2020 11:32 PM CDT 3.375 g 100 mL/hr piperacillin-tazobactam (ZOSYN) 3.375 g in sodium chloride 0.9 % 50 mL IVPB 3.375 g, Intravenous, Administer over 240 Minutes, Every 12 hours, First dose (after last reorder) on Fri03/20/20 at 0900, Until Discontinued, Per renal dose adjustment protocol 03/20/2020 9:55 AM CDT 3.375 g 12.5 mL/hr piperacillin-tazobactam (ZOSYN) 3.375 g in sodium chloride 0.9 % 50 mL IVPB 3.375 g, Intravenous, Administer over 240 Minutes, Every 8 hours, First dose (after last modification) on Fri03/20/20 at 1800, Until Discontinued, Per renal dose adjustment protocol New 03/22/2020 6:33 AM CDT 3.375 g 12.5 mL/hr 03/21/2020 8:50 PM CDT 3.375 g 12.5 mL/hr 03/21/2020 12:46 PM CDT 3.375 g 12.5 mL/hr polyethylene glycol (GoLYTELY) solution 4,000 mL 4,000 mL, Oral, As needed, administer 240 mL every 15 minutes until clear, 1 dose, Starting on Fri03/21/20 at 0842, Until Fri03/21/20 at 1654, Resume prep at 0500 time next morning, Pre-ProcedureIndications:Colitis Given 03/21/2020 4:54 PM CDT 4,000 mLs pravastatin (PRAVACHOL) tablet 40 mg 40 mg, Oral, Nightly at bedtime, First dose on Fri03/20/20 at 0045, Until Discontinued Given 03/22/2020 8:50 PM CDT 40 mg Given 03/21/2020 8:22 PM CDT 40 mg Given 03/20/2020 8:22 PM CDT 40 mg sodium chloride 0.9% bolus infusion SOLN 1,000 mL 1,000 mL, Intravenous, Administer over 15 Minutes, Once, 1 dose, On Fri03/19/20 at 2100 03/19/2020 10:12 PM CDT 1,000 mLs sodium chloride 0.9% bolus infusion SOLN 1,000 mL 1,000 mL, Intravenous, Administer over 15 Minutes, Once, 1 dose, On Fri03/19/20 at 2100 03/19/2020 9:00 PM CDT 1,000 mLs sodium chloride 0.9% bolus infusion SOLN 250 mL 250 mL, Intravenous, Administer over 60 Minutes, Once, 1 dose, On Fri03/20/20 at 1430 03/20/2020 2:21 PM CDT 250 mLs 250 mL/h r sodium chloride 0.9% bolus infusion SOLN 250 mL 250 mL, Intravenous, Administer over 60 Minutes, Once, 1 dose, On Fri03/21/20 at 0845 New 03/21/2020 8:47 AM CDT 250 mLs 250 mL/h r sodium chloride 0.9% infusion at 75 mL/hr, Intravenous, Continuous, Starting on Fri03/20/20 at 0045, Until Fri03/21/20 at 1154 New 03/21/2020 1:21 AM CDT 75 mL/hr New 03/20/2020 3:22 PM CDT 75 mL/hr 03/20/2020 1:00 AM CDT 75 mL/hr sodium chloride 0.9% infusion at 75 mL/hr, Intravenous, Continuous, Starting on Fri03/21/20 at 1215, Until Fri03/23/20 at 1948 Rate/Dose Change 03/22/2020 4:03 PM CDT 75 mL/hr 03/22/2020 10:53 AM CDT 100 mL/hr 03/21/2020 10:00 PM CDT 100 mL/hr vancomycin (VANCOCIN) 1,000 mg in sodium chloride 0.9 % 250 mL IVPB 1,000 mg, Intravenous, at 260 mL/hr, Every 18 hours, First dose on Fri03/23/20 at 0000, Until Discontinued 03/22/2020 11:49 PM CDT 1,000 mg 260 mL/hr vancomycin (VANCOCIN) 1,500 mg in sodium chloride 0.9 % 500 mL IVPB 1,500 mg, Intravenous, at 257.5 mL/hr, Once, 1 dose, On Fri03/22/20 at 0430 03/22/2020 4:36 AM CDT 1,500 mg 257.5 mL/hr vitamin B-12 (CYANOCOBALAMIN) tablet 1,000 mcg 1,000 mcg, Oral, Daily, First dose on Fri03/20/20 at 0900, Until Discontinued Given 03/23/2020 10:06 AM CDT 1,000 mcg Given 03/22/2020 2:38 PM CDT 1,000 mcg Given 03/21/2020 9:07 AM CDT 1,000 mcg documented in this encounter Active and Recently Administered Medications Times are shown in CDT. Scheduled Medication Order 03/21/2020 03/22/2020 03/23/2020 amLODIPine (NORVASC) tablet 5 mg 5 mg, Oral, Daily, First dose on Fri03/23/20 at 0900, Until Discontinued 1005 (Given - Provider: Tiera Trivedi, Nurse Student) aspirin EC (ECOTRIN) tablet 81 mg 81 mg, Oral, Nightly, First dose (after last modification) on Fri03/20/20 at 2100, Until Discontinued, Do not break, chew, or crush. 2021 (Given - Provider: Chika Hatfield, ELMO) 2049 (Given - Provider: Shu Pearl RN) cefTRIAXone (ROCEPHIN) 1 g in sterile water 10 mL IV 1 g, Intravenous, at 120 mL/hr, Every 24 hours, First dose on Fri03/22/20 at 1000, Until Discontinued 1053 (Given - Provider: Minnie Nelson RN) 1000 (Given - Provider: Tiera Trivedi, Nurse Student) enoxaparin (LOVENOX) 30 MG/0.3ML syringe 30 mg (CANCELED) 30 mg, Subcutaneous, Every 24 hours, First dose on Fri03/20/20 at 0915, Until Discontinued, Renally adjusted for CrCl less than 30 ml/min at 27 ml/min. Administer by deep SubQ injection alternating between the left or right anterolateral and left or right posterolateral abdominal wall. 09 (Given - Provider: Salima Roe, Nurse Student) 0845 (Hold - Provider: Minnie Nelson RN - Reason: Other - Comment: hold for colonoscopy) enoxaparin (LOVENOX) 40 MG/0.4ML syringe 40 mg(Linked Group 1) 40 mg, Subcutaneous, Every 24 hours, First dose (after last modification) on Fri03/22/20 at 0900, Until Discontinued, Renally adjusted for CrCl less than 30 ml/min at 27 ml/min. Administer by deep SubQ injection alternating between the left or right anterolateral and left or right posterolateral abdominal wall. 0918 (Hold - Provider: Minnie Nelson RN - Reason: Other - Comment: held for colonoscopy) 1004 (Given - Provider: Tiera Trivedi, Nurse Student) methylPREDNISolone sodium succinate (SOLU-Medrol) injection 40 mg 40 mg, Intravenous, Daily, First dose on Fri03/22/20 at 1415, Until Discontinued, If ordered IV, administer into a vein over 3-15 minutes. Doses >= 2 mg/kg or 250mg should be given by infusion, unless the benefits of IV injection outweigh the risks (life-threatening shock) 1438 (Given - Provider: Minnie Nelson RN) 0954 (Given - Provider: Tiera Trivedi, Nurse Student) metoprolol tartrate (LOPRESSOR) tablet 50 mg 50 mg, Oral, 2 times daily, First dose on Fri03/22/20 at 2100, Until Discontinued, Hold for BP <100 or HR <60 2049 (Given - Provider: Shu Pearl RN) 100 (Given - Provider: Tiera Trivedi, Nurse Student) metroNIDAZOLE (FLAGYL) IVPB 500 mg 500 mg, Intravenous, at 100 mL/hr, Every 8 hours, First dose on Fri03/22/20 at 1000, Until Discontinued 1053 (New Bag - Provider: Minnie Nelson RN)1153 (Infusion Stop Time - Provider: Minnie Nelson RN)1741 (New Bag - Provider: Minnie Nelson RN)1902 (Infusion Stop Time - Provider: Minnie Nelson RN) 0245 (New Bag - Provider: Shu Pearl RN)0345 (Infusion Stop Time - Provider: Shu Pearl RN)1016 (New Bag - Provider: Tiera Trivedi, Nurse Student)1155 (Infusion Stop Time - Provider: Marixa Gray RN)1800 (Canceled Entry - Provider: Automatic Discharge Provider - Comment: Automatically canceled at discontinue of medication order) pantoprazole EC (PROTONIX) tablet 40 mg 40 mg, Oral, Nightly at bedtime, First dose (after last modification) on Fri03/20/20 at 2100, Until Discontinued, Do not break, chew, or crush. 2021 (Given - Provider: Chika Hatfield, ELMO) 2049 (Given - Provider: Shu Pearl, ELMO) pharmacy to dose vancomycin placeholder(Linked Group 2) Intravenous, See admin instructions, Starting on Fri03/22/20 at 0350, Until Fri03/23/20 at 1948, Vancomycin Placeholder Only: Do NOT document administrations on this placeholder.(Use medication on SEP to document administrations or contact pharmacy if medication order not entered.) piperacillin-tazobactam (ZOSYN) 3.375 g in sodium chloride 0.9 % 50 mL IVPB (CANCELED) 3.375 g, Intravenous, Administer over 240 Minutes, Every 8 hours, First dose (after last modification) on Fri03/20/20 at 1800, Until Discontinued, Per renal dose adjustment protocol 0057 (Infusion Stop Time - Provider: Stacie Rendon RN)0456 (New Bag - Provider: Stacie Rendon RN)0910 (Infusion Stop Time - Provider: Salima Roe, Nurse Student)1246 (New Bag - Provider: Salima Roe, Nurse Student)1646 (Infusion Stop Time - Provider: Martina Jiménez RN)2049 (New Bag - Provider: Chika Hatfield RN) 0049 (Infusion Stop Time - Provider: Chika Hatfield, ELMO)0633 (New Bag - Provider: Chika Hatfield RN - Comment: Vanco,ycin was being administered)1030 (Infusion Stop Time - Provider: Minnie Nelson RN - Comment: stopped in procedural area) pravastatin (PRAVACHOL) tablet 40 mg 40 mg, Oral, Nightly at bedtime, First dose on Fri03/20/20 at 0045, Until Discontinued 2021 (Given - Provider: Chika Hatfield RN) 2049 (Given - Provider: Shu Pearl, ELMO) sodium chloride 0.9% bolus infusion SOLN 250 mL (COMPLETED) 250 mL, Intravenous, Administer over 60 Minutes, Once, 1 dose, On Fri03/21/20 at 0845 0847 (New Bag - Provider: Martina Jiménez RN)0950 (Infusion Stop Time - Provider: Darryl Meek, Nurse Student) vancomycin (VANCOCIN) 1,000 mg in sodium chloride 0.9 % 250 mL IVPB 1,000 mg, Intravenous, at 260 mL/hr, Every 18 hours, First dose on Fri03/23/20 at 0000, Until Discontinued 2349 (New Bag - Provider: Shu Pearl RN) 0050 (Infusion Stop Time - Provider: Shu Pearl, ELMO)1800 (Canceled Entry - Provider: Automatic Discharge Provider - Comment: Automatically canceled at discontinue of medication order) vancomycin (VANCOCIN) 1,500 mg in sodium chloride 0.9 % 500 mL IVPB (COMPLETED) 1,500 mg, Intravenous, at 257.5 mL/hr, Once, 1 dose, On Fri03/22/20 at 0430 0436 (New Bag - Provider: Chika Hatfield, ELMO)0634 (Infusion Stop Time - Provider: Chika Hatfield, RN) vitamin B-12 (CYANOCOBALAMIN) tablet 1,000 mcg 1,000 mcg, Oral, Daily, First dose on Fri03/20/20 at 0900, Until Discontinued 0907 (Given - Provider: Salima Roe, Nurse Student) 1438 (Given - Provider: Minnie Nelson RN) 1006 (Given - Provider: Tiera Trivedi, Nurse Student) Continuous Medication Order 03/21/2020 03/22/2020 03/23/2020 lactated ringers infusion (CANCELED) at 100 mL/hr, Intravenous, Continuous, Starting on Fri03/22/20 at 0930, Until Fri03/22/20 at 1537, For procedure 0900 (New Bag - Provider: Minnie Nelson RN - Comment: was given in procedure area)1045 (Infusion Stop Time - Provider: Minnie Nelson RN) sodium chloride 0.9% infusion (CANCELED) at 75 mL/hr, Intravenous, Continuous, Starting on Fri03/20/20 at 0045, Until Fri03/21/20 at 1154 0121 (New Bag - Provider: Stacie Rendon RN) sodium chloride 0.9% infusion at 75 mL/hr, Intravenous, Continuous, Starting on Fri03/21/20 at 1215, Until Fri03/23/20 at 1948 1245 (New Bag - Provider: Salima Roe, Nurse Student)2200 (New Bag - Provider: Chika Hatfield, ELMO) 1053 (New Bag - Provider: Minnie Nelson RN)1603 (Rate/Dose Change - Provider: Minnie Nelson RN) PRN Medication Order 03/21/2020 03/22/2020 03/23/2020 acetaminophen (TYLENOL) tablet 650 mg 650 mg, Oral, Every 4 hours PRN, Mild pain (Scale 1 - 3), Starting on Fri03/20/20 at 0023, Until Fri03/23/20 at 1948, Maximum dose of acetaminophen is 4000 mg from all sources in 24 hours. HYDROcodone-acetaminophen (NORCO) 5-325 MG tablet 1 tablet 1 tablet, Oral, Every 4 hours PRN, Moderate pain (Scale 4 - 7), Starting on Fri03/20/20 at 0023, Until Fri03/23/20 at 1948, Maximum dose of acetaminophen is 4000 mg from all sources in 24 hours. morphine injection 2 mg 2 mg, Intravenous, Every 2 hours PRN, Severe pain (Scale 8 - 10), Starting on Fri03/20/20 at 0023, Until Fri03/23/20 at 1948 naLOXone (NARCAN) injection 0.4 mg 0.4 mg, Intravenous, As needed, Opioid reversal, Starting on Fri03/20/20 at 0023, Until Fri03/23/20 at 1948 ondansetron (ZOFRAN) injection 4 mg 4 mg, Intravenous, Every 8 hours PRN, Nausea, Vomiting, Starting on Fri03/20/20 at 0023, Until Fri03/23/20 at 1948, IV push over 2-5 minutes. polyethylene glycol (GoLYTELY) solution 4,000 mL (COMPLETED) 4,000 mL, Oral, As needed, administer 240 mL every 15 minutes until clear, 1 dose, Starting on Fri03/21/20 at 0842, Until Fri03/21/20 at 1654, Resume prep at 0500 time next morning, Pre-Procedure 1654 (Given - Provider: Martina Jiménez RN) Linked Groups Order Group 1: enoxaparin (LOVENOX) 40 MG/0.4ML syringe 40 mgJump to med 40 mg, Subcutaneous, Every 24 hours, First dose (after last modification) on Fri03/22/20 at 0900, Until Discontinued, Renally adjusted for CrCl less than 30 ml/min at 27 ml/min. Administer by deep SubQ injection alternating between the left or right anterolateral and left or right posterolateral abdominal wall. Group 2: Pharmacy to dose vancomycin (CANCELED) Routine, Once, On Fri03/22/20 at 0351, For 1 occurrence, Indications: Bloodstream/Line infection And pharmacy to dose vancomycin placeholderJump to med Intravenous, See admin instructions, Starting on 03/22/20 at 0350, Until Afua 03/23/20 at 1948, Vancomycin Placeholder Only: Do NOT document administrations on this placeholder.(Use medication on SEP to document administrations or contact pharmacy if medication order not entered.) documented in this encounter Care Teams Dining Room Hostess Relationship Specialty Start Date End Date Jared Leyva MD PCP - General 08/28/11 07/16/22 documented as of this encounter
--- OUTSIDE RECORDS SUMMARY | 2024-07-12 19:34 | XMS_ITS | Encounter Summary ---
Author Organization [facility] Address [address] [place] [address] [place] [address] Care Team Providers Care Clinical Project Assistant Name Role Phone Jared Abrams MD Primary Care Provider [phone] Reason for Visit * Reason Comments Follow Up Path results * Consultation/Treatment (Routine) - Closed Specialty Diagnoses / Procedures Referred By Angel braswell Referred To Contact GASTROENTEROLOGY Diagnoses FU Procedures FOLLOW UP Jared Abrams MD [address] [place] [address] Phone: tel: fax: Vladimir Parsons MD [address] [address] Phone: tel: fax: Referral ID Status Reason Start Date Expiration Date Visits Re quested Visits Authorized [id number] Closed 11/16/2020 07/06/2022 100 100 Encounter Details Date Type Department Care Team (Latest Contact Info) Description 10/26/2021 2:40 PM CDT Office Visit [facility] [address] [phone] Vladimir Parsons MD [address] [address] Follow Up (Path results) Social History Tobacco Use Types Packs/Day Years [...] suspected to have Coronavirus/COVID-19? No / Unsure 10/26/2021 2:32 PM CDT documented as of this encounter Last Filed Vital Signs Vital Sign Reading Time Taken Comments Blood Pressure 142/88 10/26/2021 3:06 PM CDT Pulse 70 10/26/2021 3:06 PM CDT Temperature 36.6 ??C (97.9 ??F) 10/26/2021 3:06 PM CD T Respiratory Rate - - Oxygen Saturation 98% 10/26/2021 3:06 PM CDT Inhaled Oxygen Concentration - - Weight 72.6 kg (160 lb) 10/26/2021 3:06 PM CDT Height 157.5 cm (5' 2 ) 10/26/2021 3:06 PM CDT Body Mass Index 29.26 10/26/2021 3:06 PM CDT documented in this encounter Functional [...] Progress Notes * Vladimir Parsons MD - 10/26/2021 2:40 PM CDT Images from the original note were not included. Gastroenterology Established Visit Reason for Visit: Follow Up (Path results) History of Present Illness: Patient is doing much better after increasing the mesalamine to 4 tablets a day. She had a recent examination of the colon showing left-sided colitis. Biopsies confirmed moderately active chronic colitis. However she is doing better after increasing her mesalamine dosage. Medications: Current Outpatient Medications: ??? amLODIPine 5 MG tablet, Take 5 mg by mouth daily., Disp: , Rfl: ??? aspirin EC (ASPIRIN EC) 81 MG tablet, Take 81 mg by mouth nightly. , Disp: , Rfl: ??? diphenoxylate-atropine 2.5-0.025 MG tablet, Take 1 [...] (two) times daily., Disp: , Rfl: ??? pantoprazole EC 40 MG tablet, Take 40 mg by mouth nightly. , Disp: , Rfl: ??? pravastatin 40 MG tablet, Take 40 mg by mouth nightly at bedtime., Disp: , Rfl: ??? vitamin B-12 500 MCG tablet, Take 1,000 mcg by mouth daily., Disp: , Rfl: Allergies: No Known Allergies Medical History: Past Medical History: Diagnosis Date ??? Diabetes mellitus (CMS/HCC) ??? GERD (gastroesophageal reflux disease) ??? Hypercholesteremia ??? Hypertension ??? Ulcerative colitis (CMS/HCC) Surgical History: Past Surgical History: Procedure Laterality Date ??? COLONOSCOPY N/A 03/22/2020 colonoscopy with biopsies performed by Vladimir Parsons MD at [facility] OR ??? PARTIAL HIP REPLACEMENT Left ??? SIGMOIDOSCOPY N/A 10/05/2021 Sigmoidoscopy w/ Biopsy performed by Vladimir Parsons MD at [facility] OR ??? TUBAL LIGATION PE: Filed Vitals: 10/26/21 1506 BP: (!) 142/88 Pulse: 70 Temp: 97.9 ??F (36.6 ??C) TempSrc: Temporal SpO2: 98% Weight: 72.6 kg (160 lb) Height: 5' 2 (1.575 m) General: In NAD, pleasant and appropriate HEENT: Anicteric Skin: Anicteric, no rashes Neuro: A&Ox3 Labs: Labs Reviewed @LAB@ Diagnoses/Impression: Moderate left-sided colitis, likely ulcerative colitis. Doing better on increased medication. Continue to observe. VLADIMIR PARSONS MD 10/27/2021 Voice recognition software utilized documented in this encounter Plan of Treatment Upcoming Encounters Date Type Department Care Team (Late st Contact Info) Description 08/03/2024 2:00 PM INTERNAL REVENUE SERVICE AGENT Appointment [facility] Day [address] [id number] Josué Cook MD [address] [facility] 8 [place] [address] documented as of this encounter Goals Goal Patient Goal Type Associated Problems Recent Progress Patient-Stated? Author HOME TO [facility] Vannessa Light RN documented as of this encounter Visit Diagnoses Diagnosis Colitis- Primary Other and unspecified noninfectious gastroenteritis and colitis documented in this encounter Additional Health Concerns Assessment Noted Time PHQ-9 Depression Total Score: 0 07/06/20 21 4:06 PM INTERNAL REVENUE SERVICE AGENT documented as of this encounter Care Teams Clinical Project Assistant Relationship Specialty Start Date End Date Jared Abrams MD PCP - General 08/28/11 07/16/22 documented as of this encounter
--- OUTSIDE RECORDS SUMMARY | 2024-07-12 19:34 | XMS_ITS | Encounter Summary ---
Author Organization [facility] Address [address] [facility] [place] [address] [place] [address] Care Team Providers Care Tyre Finisher And Examiner Name Role Phone Jared Abrams MD Primary Care Provider [phone] Encounter Details Date Type Department Care Team (Latest Contact Info) Description 10/05/2021 Travel Social History Tobacco Use Types Packs/Day [...] suspected to have Coronavirus/COVID-19? No / Unsure 10/05/2021 9:27 AM CASH ANALYST documented as of this encounter Functional Status [...] st Contact Info) Description 08/03/2024 2:00 PM CASH ANALYST Appointment [address] [address] Josué Cook MD [address] [address] documented as of this encounter Goals Goal Patient Goal Type Associated Problems Recent Progress Patient-Stated? Author [facility] General No Vannessa Blackwell RN documented as of this encounter Visit Diagnoses Not on filedocumented in this encounter Additional Health Concerns Assessment Noted Time PHQ-9 Depression Total Score: 0 07/06/20 21 4:06 PM CASH ANALYST documented as of this encounter Care Teams Tyre Finisher And Examiner Relationship Specialty Start Date End Date Jared Abrams MD PCP - General 08/28/11 07/16/22 documented as of this encounter
--- OUTSIDE RECORDS SUMMARY | 2024-07-12 19:34 | XMS_ITS | Encounter Summary ---
Author Organization [facility] Address [address] [facility] [place] [address] [place] [address] Care Team Providers Care Varnish Mixer Name Role Phone Jared Abrams MD Primary Care Provider [phone] Encounter Details Date Type Department Care Team (Late st Contact Info) Description 07/10/2021 Orders Only [facility] Medical Group Multispecialty Care - [facility] [address] [facility] [place] [address] Vladimir Parsons MD 3 [facility] [address] [place] [address] Social History Tobacco Use Types Packs/Day Years [...] COVID-19? No / Unsure 07/06/2021 2:18 PM CELLOPHANER documented as of this encounter Functional Status [...] st Contact Info) Description 08/03/2024 2:[address] [facility] [address] [place] [address] Josué Cook MD [address] [address] documented as of this encounter Goals Goal Patient Goal Type Associated Problems Recent Progress Patient-Stated? Author HOME TO [facility] No Vannessa Blackwell RN documented as of this encounter Visit Diagnoses Diagnosis Ulcerative colitis with complication, unspecified location ([facility])- Primary documented in this encounter Additional Health Concerns Assessment Noted Time PHQ-9 Depression Total Score: 0 07/06/20 21 4:06 PM CELLOPHANER documented as of this encounter Care Teams Varnish Mixer Relationship Specialty Start Date End Date Jared Abrams MD PCP - General 08/28/11 07/16/22 documented as of this encounter
--- OUTSIDE RECORDS SUMMARY | 2024-07-12 19:34 | XMS_ITS | Encounter Summary ---
Author Organization [facility] Address [address] [place] [address] [place] [address] Care Team Providers Care National Expansion Recruiter Name Role Phone Jared Abrams MD Primary Care Provider [phone] Reason for Visit * Reason Onset Date Comments Prior Authorization 07/12/2021 Encounter Details Date Type Department Care Team (Late st Contact Info) Description 07/12/2021 Telephone [facility] Medical Group Multispecialty Care - [facility] [address] [facility] [place] [phone] Vladimir Parsons MD [address] [facility] [address] [place] [address] Prior Authorization Social History Tobacco Use Types [...] COVID-19? No / Unsure 07/06/2021 2:18 PM HEALTH INFORMATION ADMINISTRATOR documented as of this encounter Functional [...] documented in this encounter Progress Notes * Ave Duarte MA - 07/12/2021 8:48 AM CSTSummary: prior auth Prior auth for sigmoidoscopy is not required. Ref# [id number] TH INFORMATION ADMINISTRATOR documented in this encounter Plan of Treatment Upcoming Encounters Date Type Department Care Team (Late st Contact Info) Description 08/03/2024 2:00 PM HEALTH INFORMATION ADMINISTRATOR Appointment [facility] [id number] [place] [address] Josué Cook MD [address] [facility] [address] [place] [address] documented as of this encounter Goals Goal Patient Goal Type Associated Problems Recent Progress Patient-Stated? Author [facility] General Vannessa Light RN documented as of this encounter Visit Diagnoses Not on filedocumented in this encounter Additional Health Concerns Assessment Noted Time PHQ-9 Depression Total Score: 0 07/06/20 21 4:06 PM HEALTH INFORMATION ADMINISTRATOR documented as of this encounter Care Teams National Expansion Recruiter Relationship Specialty Start Date End Date Jared Abrams MD PCP - General 08/28/11 07/16/22 documented as of this encounter
--- OUTSIDE RECORDS SUMMARY | 2024-07-12 19:34 | XMS_ITS | Encounter Summary ---
Author Organization [facility] Address [address] [facility] [place] [address] [place] [address] Care Team Providers Care Padded Products Inspector Trimmer Name Role Phone Jared Abrams MD Primary Care Provider [phone] Encounter Details Date Type Department Care Team (Late st Contact Info) Description 09/04/2021 Orders Only [facility] Medical Group Multispecialty Care - [address] [place] [phone] Vladimir Parsons MD 3 [facility] [address] [place] [address] Social History Tobacco Use Types Packs/Day Years [...] st Contact Info) Description 08/03/2024 2:00 PM EPIC PRELUDE ANALYST Appointment [facility] [id number] [place] [address] Josué Cook MD [address] [address] documented as of this encounter Goals Goal Patient Goal Type Associated Problems Recent Progress Patient-Stated? Author [facility] General No Vannessa Blackwell RN documented as of this encounter Visit Diagnoses Diagnosis Ulcerative pancolitis without complication (CMS/HCC [facility]/HCC)- Primary documented in this encounter Additional Health Concerns Assessment Noted Time PHQ-9 Depression Total Score: 0 07/06/20 21 4:06 PM EPIC PRELUDE ANALYST documented as of this encounter Care Teams Padded Products Inspector Trimmer Relationship Specialty Start Date End Date Jared Abrams MD PCP - General 08/28/11 07/16/22 documented as of this encounter
--- OUTSIDE RECORDS SUMMARY | 2024-07-12 19:34 | XMS_ITS | Encounter Summary ---
Author Organization [facility] Address [address] [facility] [place] [address] [place] [address] Care Team Providers Care Gin Inspector Name Role Phone Jared Abrams MD Primary Care Provider [phone] Reason for Visit * Reason Onset Date Comments Hospital Follow Up 03/24/2020 Encounter Details Date Type Department Care Team (Late st Contact Info) Description 03/24/2020 Telephone [facility] Med/Surg [address] [place] [address] Rhonda Garber, RN Hospital Follow Up Social History Tobacco Use Types Packs/Day Years [...] documented in this encounter Progress Notes * Rhonda Garber RN - 03/24/2020 3:05 PM CDT Patient doing well, no questions or concerns at this time. documented in this encounter Plan of Treatment Upcoming Encounters Date Type Department Care Team (Late Contact Info) Description 08/03/2024 2:00 PM LEAF STAMPER Appointment [facility] [address] [place] [address] Josué Cook MD [address] [facility] 8 [place] [address] documented as of this encounter Goals Goal Patient Goal Type Associated Problems Recent Progress Patient-Stated? Author [facility] TO [facility] General No Vannessa Blackwell RN documented as of this encounter Visit Diagnoses Not on filedocumented in this encounter Care Teams Gin Inspector Relationship Specialty Start Date End Date Jared Abrams MD PCP - General 08/28/11 07/16/22 documented as of this encounter
--- OUTSIDE RECORDS SUMMARY | 2024-07-12 19:34 | XMS_ITS | Encounter Summary ---
Author Organization [facility] Address [address] [facility] [place] [address] [place] [address] Care Team Providers Care Value Engineer Name Role Phone Jared Abrams MD Primary Care Provider Reason for Referral * Surgical (Routine) - Closed Specialty Diagnoses / Procedures Referred By Angel braswell Referred To Contact Diagnoses Ulcerative pancolitis without complication ([facility]) Ulcerative colitis with complication, unspecified location ([facility]) Procedures Case request operating room: SIGMOIDOSCOPY DX WITH BRUSH/WASH Vladimir Parsons MD [address] [place] [address] [place] [address] Phone: tel: fax: Referral ID Status Reason Start Date Expiration Date Visits Re quested Visits Authorized [id number] Closed 09/21/2021 10/19/2022 1 1 EW NURSE Encounter Details Date Type Department Care Team (Late st Contact Info) Description 09/21/2021 Orders Only [facility] Medical Group Multispecialty Care - [address] [place] [phone] Vladimir Parsons MD [address] [place] [address] [address] [place], [place] [phone] Social History Tobacco Use Types Packs/Day Years [...] st Contact Info) Description 08/03/2024 2:00 PM REVIEW NURSE Appointment [facility] [address] [place] [address] Josué Cook MD [address] [facility] 8 [place] [address] Scheduled Orders Name Type Priority Associated Diagnoses Orde r Schedule Case request operating room: SIGMOIDOSCOPY DX WITH BRUSH/WASH Case Request Routine Ulcerative pancolitis without complication ([facility]) Ulcerative colitis with complication, unspecified location ([facility]) Expected: 09/28/2021, Expires: 09/21/2022 documented as of this encounter Goals Goal Patient Goal Type Associated Problems Recent Progress Patient-Stated? Author HOME TO [facility] General Vannessa Light RN documented as of this encounter Visit Diagnoses Diagnosis Ulcerative pancolitis without complication ([facility])- Primary Ulcerative colitis with complication, unspecified location ([facility]) documented in this encounter Additional Health Concerns Assessment Noted Time PHQ-9 Depression Total Score: 0 07/06/20 21 4:06 PM REVIEW NURSE documented as of this encounter Care Teams Value Engineer Relationship Specialty Start Date End Date Jared Abrams MD PCP - General 08/28/11 07/16/22 documented as of this encounter
--- OUTSIDE RECORDS SUMMARY | 2024-07-12 19:34 | XMS_ITS | Encounter Summary ---
Author Organization [facility] Address [address] [facility] [place] [address] [place] [address] Care Team Providers Care Contact Lens Edge Buffer Name Role Phone Jared Leyva MD Primary Care Provider [phone] Reason for Visit * Reason Comments Diarrhea * Auth/Cert Specialty Diagnoses / Procedures Referred By Contclemencia t Referred To Contact Diagnoses Colitis JNENY (acute kidney injury) ([facility]) Colitis Referral ID Status Reason Start Date Expiration Date Visits Re quested Visits Authorized [id number] 1 1 Encounter Details Date Type Department Care Team (Late st Contact Info) Description 03/22/2020 11:42 AM CDT - 03/22/2020 12:14 PM CDT [facility] [address] [place] [address] Indigo Parsons MD [address] [place] [address] [phone] colonoscopy with biopsies Surgery Details Date/Time Status Location OR Service Patient Class Case Class Case Type Trauma Case? 03/22/2020 11:42 AM Posted [facility] OR Endo Gastroenterology Inpatient No Panel 1 Procedure LRB Anes Op Region Wound Class Comments colonoscopy with biopsies N/A Ruth n Contaminated Surgeon Surgeon Role Service Panel Indigo Parsons MD Primary Gastroenterology 1 documented in this encounter Social History Tobacco Use Types Packs/Day Years [...] Sign Reading Time Taken Comments Blood Pressure 141/68 03/22/2020 12:00 PM CDT Pulse 84 03/22/2020 12:00 PM CDT Temperature 36.9 ??C (98.5 ??F) 03/22/2020 1 2:00 PM CDT Respiratory Rate 18 03/22/2020 12:0 0 PM CDT Oxygen Saturation 97% 03/22/2020 12: 00 PM CDT Inhaled Oxygen Concentration - - Weight 73.9 kg (162 lb 14.7 oz) 03/22/2020 4:14 AM CDT Height 154.9 cm (5' 1 ) 03/20/2020 12:1 5 AM CDT Body Mass Index 30.99 03/20/2020 12:15 AM CDT documented in this encounter Functional Status * Question Answer Date of Assessment Author Status Do you have serious difficulty walking or climbing stairs? Yes 03/20/2020 12:34 AM CDT Shu Tan RN Acti ve * Question Answer Date of Assessment Author Status Do you have difficulty dressing or bathing? No 03/20/2020 12:34 AM CDT Shu Tan RN Active Because of a physical, mental, or emotional condition, do you have difficulty doing errands alone such as visiting a doctor's office or shopping? No 03/20/2020 12:34 AM CDT Frances Tan RN Active * RETIRED Are you deaf or do [...] difficulty concentrating, remembering, or making decisions? No 03/20/2020 12:34 AM CDT Shu Tan RN Active * Because of a physical, [...] No results for input(s): PH, PCO2, PO2, [id number], BICARBWB, BASEDEFICIT, BASEEXCESS in the [id number] hours. No results found for this or any previous visit. Radiology Reports : Results for orders placed or performed during the hospital encounter of 03/19/20 ECG 12 lead ?? Narrative ?? [facility] Test Date: 2020-03-19 Pat Name: RADHA ALLEN Department: Room: 120 Gender: Female Brine Mixer Operator: : 1945 Requested By: MAHESH NELSON Order Number: [id number] Reading MD: eKven Gunter Measurements Intervals [place] Rate: 78 P: 53 WA: 137 QRS: 22 QRSD: 87 T: 12 QT: 355 QTc: 405 Interpretive Statements SINUS RHYTHM LOW QRS VOLTAGE IN PRECORDIAL LEADS No previous ECG available for comparison ?? CT ABD+PEL WO CON [[id number]] Collected: 03/20/20825 ?? Updated: 03/20/20834 Narrative: ?? [...] sacroiliac joints. ?? Discharge Exam: Filed Vitals: 03/22/20 2027 03/23/20 0044 03/23/20 0445 03/23/20 0743 BP: [...] Your Medications These medications were sent to [id number] - [place], [place] - [address] [facility] [address] [address] [address] [facility] [phone] ?? ferrous sulfate EC 324 (65 Fe) [...] GEN Tired, Speaking in complete sentences HEENT PERDANIA, MMM CHEST Dec BS in the bases, [...] Care Everywhere. * Ulcerative Colitis Discharge Instructions (Kosovan) * Diet for Ulcerative Colitis (Kosovan) documented in this encounter Medications at Time [...] Mac RN - 03/23/2020 11:11 AM CDT [facility] for discharge planning @1100 with HOSPITALIST, BLUEPRINTING MACHINE OPERATOR, CM, UR, PASTORAL CARE, PHARMACY, CARDIOPULMONARY, SENIOR CENTER MANAGER, HH. F/u with Dr. Parsons (GI) after [...] 10 mL IV 1 g Intravenous Q24H Darmaribel R Kristent, CLARIFIER OPERATOR 1 g at 03/22/20 1053 ??? enoxaparin (LOVENOX) 40 MG/0.4ML syringe 40 mg 40 mg Subcutaneous Q24H Darmaribel R John, CLARIFIER OPERATOR Stopped at 03/22/20 0918 ??? HYDROcodone-acetaminophen (NORCO) 5-325 MG tablet 1 tablet 1 tablet Oral Q4H PRN Madison Aaron MD ??? lactated ringers infusion Intravenous Continuous Indigo Parsons MD Stopped at 03/22/20 1045 ??? methylPREDNISolone sodium succinate (SOLU-Medrol) injection 40 mg 40 mg Intravenous Daily DarmaribelR John, CLARIFIER OPERATOR 40 mg at 03/22/20 1438 ??? metroNIDAZOLE (FLAGYL) IVPB 500 mg 500 mg Intravenous Q8H Pollo R John, CLARIFIER OPERATOR Stopped at 03/22/20 1153 ??? morphine injection [...] dose vancomycin placeholder Intravenous See Admin Instructions Ruht Sharp MD ??? pravastatin (PRAVACHOL) tablet 40 mg 40 mg Oral Nightly at bedtime Madison Aaron MD 40 mg at 03/21/202021 ??? sodium chloride 0.9% infusion Intravenous Continuous Darmaribel R John, CLARIFIER OPERATOR 100 mL/hr at 03/22/20 1053 ??? [START ON 03/23/2020] vancomycin (VANCOCIN) 1,000 mg in sodium chloride 0.9 % 250 mL IVPB 1,000 mg Intravenous Q18H Darmaribel Darian Hogue, CLARIFIER OPERATOR ??? vitamin B-12 (CYANOCOBALAMIN) tablet 1,000 mcg [...] of 03/19/[address] [facility] [address] [facility] Test Date: 2020-03-19 Pat Name: RADHA ALLEN Department: Room: 120 Gender: Female Brine Mixer Operator: : 1945 Requested By: MAHESH NELSON Order Number: [id number] Reading MD: Keven Gunter Measurements Intervals [place] Rate: 78 P: 53 WA: 137 QRS: 22 QRSD: 87 T: 12 QT: 355 QTc: 405 Interpretive Statements SINUS RHYTHM LOW QRS VOLTAGE IN PRECORDIAL LEADS No previous ECG available for comparison CT ABD+PEL WO CON [[id number]] Collected: 03/20/20825 ?? Updated: 03/20/20834 Narrative: ?? [...] - Code status: Full POLLO HOGUE APRN 03/22/2020 Patient was seen and examined separately [...] CASE MANAGEMENT, UR, NURSING, PT, OT, CARDIOPULMONARY, SENIOR CENTER MANAGER, HOSPITALIST HOME HEALTH,PASTORAL CARE, PHARMACY Meeting held at 1100. SENIOR CENTER MANAGER REPORTS BLOOD CULTURE POSITIVE. WILL NOT DC [...] Drawn Site Organism Pertinent Sensitivity 03/20 blood 07/29 GPC resembling staph According to the patient's [...] 0.9 % 50 mL IVPB 3.375 g [id number] Durga Parekh MD 12.5 mL/hr at 03/21/20 [...] 111/41 107/89 Pulse: 78 82 97 Resp: Temp: 99.3 ??F (37.4 ??C) 98.7 ??F [...] No focal deficits. LABS: Recent Labs Lab 03/19/20204403/20/20 0530 03/21/20 1209 NA 135* 140 141 K 5.3* 5.0 4.5 CL 102 110* 111* CO2 20.2* 20.2* 19.7* AGAP 12.8 9.8 10.3 BUN 28* 24* 9 CR 2.27* 1.59* 0.84 BUNCREATININ 12.3 15.1 10.7 GFRNON 20* 31* 68* GFR 24* 36* 78* GLU 107* 74 100* CA 8.4* 7.4* 7.2* Recent Labs Lab 03/19/20204403/20/20 0530 03/21/20 1209 WBC 18.1* 11.2* 7.3 RBC 3.78* [...] encounter of 03/19/20 ECG 12 lead Narrative [facility] Test Date: 2020-03-19 Pat Name: RADHA ALLEN Department: Room: 120 Gender: Female Brine Mixer Operator: : 1945 Requested By: MAHESH NELSON Order Number: [id number] Reading MD: Keven Gunter Measurements Intervals [place] Rate: 78 P: 53 WA: 137 QRS: 22 QRSD: 87 T: 12 QT: 355 QTc: 405 Interpretive Statements SINUS RHYTHM LOW QRS VOLTAGE IN PRECORDIAL LEADS No previous ECG available for comparison CT ABD+PEL WO CON [[id number]] Collected: 03/20/20825 ?? Updated: 03/20/20834 Narrative: ?? [...] case management, UR, nursing, PT, OT, cardiopulmonary, SENIOR CENTER MANAGER, Hospitalist, Pastoral Care, and Pharmacy. Meeting held at 11:00. Plan for colonoscopy tomorrow. * Vannessa Blackwell RN - 03/20/2020 2:10 PM CDT INTERDISCIPLINARY CARE CONFERENCE: TEAM ATTENDANCE: CASE MANAGEMENT, UR, NURSING, PT, OT, CARDIOPULMONARY, SENIOR CENTER MANAGER, HOSPITALIST HOME HEALTH,PASTORAL CARE, PHARMACY Meeting held [...] Assistance No Behavior Oriented;Cooperative Communication Talks;Understands speaking;Understands Kosovan Socioeconomic Needs Caregiver Needed No At Risk [...] of major lifestyle changes, including change in buttermaker helper living environment No Family concerns/conflicts No Inadequate social and/or financial supports No Abuse and/or neglect of elder, adult or child No Psychiatric and/or substance abuse issues affecting current hospitalization No Homelessness with lack of safe discharge environment No Need for guardianship petition No Chaptered patient No LIVES ALONE. DAUGHTER IN AREA AND ASSISTS NEEDED. PATIENT IS VERY ACTIVE WITH [employer]. DENIES NEED FOR HOME HEALTH ARE OTHER SERVICES documented in this encounter H&P Notes * Cara Alvarado, CLARIFIER OPERATOR - 03/20/2020 9:10 AM CDT Hospitalist History [...] file Gets together: Not on file Attends adventist service: Not on file Active member of [...] & Other Studies CT ABD+PEL WO CON [[id number]] Collected: 03/20/20825 Updated: 03/20/2035 Narrative: ?? IMAGING STUDIES: ??CT ABD+PEL WO [...] encounter of 03/19/20 ECG 12 lead [facility] Date: 2020-03-19 Pat Name: RADHA ALLEN Department: Room: 120 Gender: Female Brine Mixer Operator: : 1945 Requested By: MAHESH NELSON Order Number: [id number] Reading MD: Keven Gunter Measurements Intervals [place] Rate: 78 P: 53 WA: 137 QRS: 22 QRSD: 87 T: 12 [...] Anticipated LOS 2-3 days pending progress CARA ALVARADO APRN 03/20/2020 9:11 AM Cosigned by Durga Parekh MD at 03/20/2020 8:49 PM CDT Associated attestation - Durga Parekh MD - 03/20/2020 8:49 PM CDT I, DURGA PAREKH MD, performed a History and Physical examination [...] from [place]. While there she had immersion hindu. She noticed watery stools within a few [...] file Gets together: Not on file Attends adventist service: Not on file Active member of [...] Parsons MD - 03/22/2020 10:27 AM CDT [facility] OpNote colonoscopy with biopsies Procedure Note Radhafatoumata Tolbert Alejandro 03/19/2020 - 03/22/2020 1142 Procedure(s) (LRB): colonoscopy with biopsies (N/A) Surgeon(s): Indigo Parsons MD Staff: Circulating Nurse 1: Miroslava Henderson RN automotive parts manager: Jody Francisco, ANNUAL CAMPAIGN MANAGER Anesthesia: * No anesthesia type entered * CONSUMER LOAN MANAGER: Rochelle García CRNA Pre-Op Diagnosis: diarrhea and [...] Temp src Pulse Resp SpO2 Height Weight 03/19/202334 110/42 97.8 ??F (36.6 ??C) Temporal 82 [...] encounter of 03/19/20 ECG 12 lead Narrative [facility] Test Date: 2020-03-19 Pat Name: RADHA ALLEN Department: Room: EXAM 101 Gender: Female Brine Mixer Operator: : 1945 Requested By: MAHESH NELSON Order Number: [id number] Reading MD: Measurements Intervals [place] Rate: 78 P: 53 WA: 137 QRS: 22 QRSD: 87 T: 12 [...] IVPB (3.375 g Intravenous New Bag 03/19/20 2332) piperacillin-tazobactam (ZOSYN) 3.375 g in sodium chloride [...] Colitis Disposition: Admit Mahesh Nelson MD 03/19/20 8388 * Kaitlynn Amin RN - 03/19/2020 8:35 PM CDT Patient arrived via POV from home with c/o diarrhea, 5-6 loose stools in the past 24 hours, since September. Patient returned home from [facility] and began having diarrhea. Has had stool samples, which werenegative. Patient c/o generalized weakness and family reports that she appears pale. Also, c/o hemorroids. documented in this encounter Plan of Treatment Upcoming Encounters Date Type Department Care Team (Late st Contact Info) Description 08/03/2024 2:00 PM WASHHOUSE HAND Appointment [facility] [address] [place] [address] Josué Cook MD [address] [facility] [address] [place] [address] Pending Results Name Type Priority Associated Diagnoses Date /Time Blood Bank - Specimen Hold Blood Bank Routine 03/19/2020 8:45 PM CDT documented as of this encounter Goals Goal Patient Goal Type Associated Problems Recent Progress Patient-Stated? Author HOME TO INDEPENDENT LIVING [facility] Vannessa Light RN documented as of [...] PM CDT US RETROPERITONEAL COMP Today 03/21/20 10:53 AM CDT POCT GLUCOSE - BLANTON [...] BASIC METABOLIC PANEL (03/30/2020 1:30 PM CDT) [facility] Signature GLUCOSE 144(H) 70 - 99 MG/DL 03/30/2020 1:56 PM CDT [facility] BUN 12 7 - 18 MG/DL 03/30/2020 1:56 PM CDT [facility] CREATININE S/P/B 0.95 0.55 - 1.02 MG/DL 03/30/2020 1:56 PM CDT [facility] SODIUM S/P/B 141 136 - 145 MMOL/L 03/30/2020 1:56 PM T [facility] POTASSIUM S/P/B 3.4(L) 3.5 [...] >90 ML/MIN/1.7 3 M2 03/30/2020 1:56 PM [facility] EGFR AFR. AMER. 67(L) >90 ML/MIN/1.7 3 M2 03/30/2020 1:56 PM T [facility] Comment: NOTE: eGFR is not calculated for patients <18 years of age. This is an estimated GFR (CKD EPI) and should not be used for calculating drug doses. 03/30/2020 1:30 PM CDT Pollo Hogue CLARIFIER OPERATOR LABORATORY Final Result [facility] [address] [place] [address], * (ABNORMAL) CBC W/DIFF AUTOMATED (03/30/2020 1:30 [...] [facility] 03/30/2020 1:30 PM CDT Pollo Hogue APRN LABORATORY Edited Result - Final [facility] [address] [place] [address], [place] [phone] * (ABNORMAL) BASIC METABOLIC PANEL (03/23/2020 6:20 AM CDT) [facility] GLUCOSE 103(H) 70 - 99 MG/DL 03/23/2020 6:55 AM CDT [facility] BUN 3(L) 7 - 18 MG/DL 03/23/2020 6:55 AM T [facility] CREATININE S/P/B 1.07(H) 0.55 - 1.02 MG/DL 03/23/2020 6:55 AM [facility] SODIUM S/P/B 143 136 - 145 MMOL/L 03/23/2020 6:55 AM [facility] POTASSIUM S/P/B 3.7 3.5 - 5.1 MMOL/L 03/23/2020 6:55 AM [facility] CHLORIDE S/P/B 111(H) 100 - 108 MMOL/L 03/23/2020 6:55 AM [facility] CO2 23.4 21 - 32 MMOL/L 03/23/2020 6:55 AM [facility] CALCIUM S/P/B 7.1(L) 8.5 - 10.1 MG/DL 03/23/2020 6:55 AM [facility] ANION GAP 8.6 5 - 15 MMOL/L 03/23/2020 6:55 AM [facility] BUN CREATININE RATIO 2.8(L) 6 - 03/23/2020 6:55 AM [facility] EGFR NON-AFR. AMER. 50(L) >90 ML/MIN/1.7 3 M2 03/23/2020 6:55 AM [facility] EGFR AFR. AMER. 58(L) >90 ML/MIN/1.7 3 M2 03/23/2020 6:55 AM [facility] Comment: NOTE: eGFR is not calculated for patients <18 years of age. This is an estimated GFR (CKD EPI) and should not be used for calculating drug doses. 03/23/2020 6:20 AM CDT Pollo Hogue APRN LABORATORY Final Result [facility] [address] [place] [address], * (ABNORMAL) CBC W/DIFF AUTOMATED (03/23/2020 6:20 [...] 03/23/2020 6:20 AM CDT us Pollo Hogue CLARIFIER OPERATOR LABORATORY Final Result [facility] [address] [place] [address], * (ABNORMAL) POCT glucose (03/22/2020 7:56 PM CDT) [facility] Signature GLUCOSE POC 175(H) 70 - 110 mg/dL 03/22/2020 9:10 PM CDT [facility] 03/22/2020 7:56 PM CDT Pollo Hogue APRN POCT ORDERABLES - DEVICE Final Result Performing Organization Address [facility] Co de Phone Number [facility] [address] [place] [address], [place] [phone] * CULTURE, BACTERIA, BLOOD (03/22/2020 11:57 AM CDT) SPEC DESCRIPTION BLOOD 03/22/2020 9:30 AM CDT [facility] SPECIAL REQUESTS NO SPECIAL REQUEST 03/22/2020 9:30 AM CDT [facility] CULTURE RESULT NO GROWTH 5 DAYS 03/27/2020 2:05 PM CDT [facility] BLOOD SPECIMEN OBTAINED FOR BLOOD CULTURE / Unknown 03/22/2020 11:57 AM CDT 03/22/2020 12:07 PM CDT Pollo Hogue APRN MICROBIOLOGY - GENERAL ORDERAB LES Final Result Performing Organization Address City/[facility]/ZIP Co de Phone Number [facility] [address] [place] [address], [place] [phone] [facility] [address] [place] [address], [place] [phone] * CULTURE, BACTERIA, BLOOD (03/22/2020 11:57 AM CDT) SPEC DESCRIPTION BLOOD 03/22/2020 9:30 AM CDT [facility] SPECIAL REQUESTS NO SPECIAL REQUEST 03/22/2020 9:30 AM CDT [facility] CULTURE RESULT NO GROWTH 5 DAYS 03/27/2020 2:05 PM CDT [facility] BLOOD SPECIMEN OBTAINED FOR BLOOD CULTURE / Unknown 03/22/2020 11:57 AM CDT 03/22/2020 12:07 PM CDT Pollo Farmer Kristenmichaelle CLARIFIER OPERATOR MICROBIOLOGY - GENERAL ORDERAB LES Final Result [facility] [address] [place] [address], [place] [phone] [facility] [address] [place] [address], [place] [phone] * Pathology (03/22/2020 10:20 AM CDT) Tissue specimen (specimen) COLON STRUCTURE / Unknown 03/22/2020 10:20 AM CDT Tissue specimen (specimen) COLON STRUCTURE / Unknown 03/22/2020 10:22 AM CDT Tissue specimen (specimen) SPECIMEN FROM RECTUM / Unknown 03/22/2020 10:24 AM CDT Narrative [facility] - 03/23/2020 5:19 PM CDT [facility] Date of Service: ??03/22/2020 Preoperative Diagnosis: ??Diarrhea [...] submitted entirely in block C. CPT Code: ??08519 x3 D: ??03/22/2020 02:17 PM #[id number] T: ??03/22/2020 04:47 PM /NTS A copy of this report has been sent to: [facility] [id number] PATHOLOGIC DIAGNOSIS: Right colon, colonoscopy with biopsies: [...] chronic ulcerative colitis. D: ??03/23/2020 04:21 PM #[id number] T: ??03/23/2020 05:09 PM /NTS Indigo Parsons MD PATHOLOGY/CYTOLOGY ORDERABLES Fi nal Result [facility] [address] [place] [address], * (ABNORMAL) BASIC METABOLIC PANEL (03/22/2020 6:55 [...] 5 - 15 MMOL/L 03/22/2020 8:34 AM CDT [facility] BUN CREATININE RATIO 6.1 6 - 03/22/2020 8:34 AM CDT [facility] EGFR NON-AFR. AMER. 70(L) >90 ML/MIN/1.7 3 M2 03/22/2020 8:34 AM CDT [facility] EGFR AFR. AMER. 81(L) >90 ML/MIN/1.7 3 M2 03/22/2020 8:34 AM T [facility] Comment: NOTE: eGFR is not calculated for patients <18 years of age. This is an estimated GFR (CKD EPI) and should not be used for calculating drug doses. 03/22/2020 6:55 AM CDT [facility] CLARIFIER OPERATOR LABORATORY Final Result [facility] [address] [place] [address], * (ABNORMAL) CBC W/DIFF AUTOMATED (03/22/2020 6:55 AM CDT) WBC 6.6 4.4 - 11.0 x10'3/uL 03/22/2020 7:14 AM CDT [facility] RBC 3.12(L) 4.50 - 5.10 x10'6/uL 03/22/2020 7:14 AM CDT [facility] HGB 7.8(L) 12.3 - 15.3 G/DL 03/22/2020 7:14 AM CDT [facility] HCT 25.2(L) 35.9 - 44.6 % 03/22/2020 7:14 AM CDT [facility] MCV 80.8 80.0 - 96.0 FL 03/22/2020 7:14 AM T [facility] MCH 25.0(L) 25.3 - 30.9 PG 03/22/2020 7:14 AM CDT [facility] MCHC 31.0 31.0 - 34.1 G/DL 03/22/2020 7:14 AM [facility] RDW 16.5(H) 12.4 - 15.1 % 03/22/2020 7:14 AM [facility] PLT 321 151 - 353 x10'3/uL 03/22/2020 7:14 AM [facility] MPV 8.0(L) 9.6 - 12.0 FL 03/22/2020 7:14 AM [facility] RBC MORPHOLOGY NORMAL 03/22/2020 7:14 AM [facility] PLT MORPH. NORMAL 03/22/2020 7:14 AM T [facility] WBC MORPHOLOGY NORMAL 03/22/2020 7:14 AM T [facility] LYMPHOCYTES % 29.5 15.8 - 45.0 % 03/22/2020 7:14 AM T [facility] NEUTROPHILS % 53.5 42.1 - 71.9 % 03/22/2020 7:14 AM T [facility] MONOCYTES % 11.0 5.7 - 12.5 % 03/22/2020 7:14 AM T [facility] EOSINOPHILS 1.7 0.0 - [...] APRN LABORATORY Final Result [facility] [address] [place] [address], [place] [phone] * (ABNORMAL) IRON SAT PANEL (IRON,IBC,%SAT) (03/22/2020 [...] MD LABORATORY Final Result Performing Organization Address City/[facility]/ZIP Co de Phone Number [facility] [address] [place] [address], [place] [phone] * (ABNORMAL) VITAMIN B12 / FOLATE (03/22/2020 6:55 AM CDT) VITAMIN B12 S/P/B 4,687(H) 193 - 986 PG/ML 03/22/2020 8:34 AM CDT [facility] FOLATE 6.0(L) 8.6 - 58.9 NG/ML 03/22/2020 8:34 AM CDT [facility] 03/22/2020 6:55 AM CDT us Durga Parekh MD LABORATORY Final Result Performing Organization Address [facility]/ZIP Co de Phone Number [facility] [address] [place] [address], [place] [phone] * POCT glucose (03/22/2020 5:59 AM CDT) GLUCOSE POC 100 70 - 110 mg/dL 03/22/2020 6:11 AM CDT [facility] 03/22/2020 5:59 AM CDT Pollo Hogue APRN POCT ORDERABLES - DEVICE Final Result Performing Organization Address [facility]/ZIP Co de Phone Number [facility] [address] [place] [address], [place] [phone] * (ABNORMAL) POCT glucose (03/21/2020 8:25 PM CDT) GLUCOSE POC 137(H) 70 - 110 mg/dL 03/21/2020 8:55 PM CDT [facility] 03/21/2020 8:25 PM CDT Pollo Hogue CLARIFIER OPERATOR POCT ORDERABLES - DEVICE Final Result Performing Organization Address [facility]/ZIP Co de Phone Number [facility] [address] [place] [address], [place] [phone] * POCT glucose (03/21/2020 4:13 PM CDT) GLUCOSE POC 100 70 - 110 mg/dL 03/21/2020 5:30 PM CDT [facility] 03/21/2020 4:13 PM CDT Pollo Farmer John CLARIFIER OPERATOR POCT ORDERABLES - DEVICE Final Result [facility] [address] [place] [address], [place] [phone] * (ABNORMAL) BASIC METABOLIC PANEL (03/21/2020 12:09 [...] drug doses. 03/21/2020 12:0 9 PM CDT [facility] CLARIFIER OPERATOR LABORATORY Final Result [facility] [address] [place] [address], * (ABNORMAL) CBC W/DIFF AUTOMATED (03/21/2020 12:09 PM CDT) WBC 7.3 4.4 - 11.0 x10'3/uL 03/21/2020 12:22 PM CDT [facility] RBC 3.22(L) 4.50 - 5.10 x10'6/uL 03/21/2020 12:22 PM CDT [facility] HGB 8.2(L) 12.3 - 15.3 G/DL 03/21/2020 12:22 PM CDT [facility] HCT 26.6(L) 35.9 - 44.6 % 03/21/2020 12:22 PM CDT [facility] MCV 82.6 80.0 - 96.0 FL 03/21/2020 12:22 PM T [facility] MCH 25.5 25.3 - 30.9 PG 03/21/2020 12:22 PM [facility] MCHC 30.8(L) 31.0 - 34.1 G/DL 03/21/2020 12:22 PM T [facility] RDW 16.7(H) 12.4 - 15.1 % 03/21/2020 12:22 PM [facility] PLT 345 151 - 353 x10'3/uL 03/21/2020 12:22 PM [facility] MPV 8.6(L) 9.6 - 12.0 FL 03/21/2020 12:22 PM [facility] RBC MORPHOLOGY NORMAL 03/21/2020 12:22 PM [facility] PLT MORPH. NORMAL 03/21/2020 12:22 PM T [facility] WBC MORPHOLOGY NORMAL 03/21/2020 12:22 PM [facility] LYMPHOCYTES % 23.1 15.8 - 45.0 % 03/21/2020 12:22 PM [facility] NEUTROPHILS % 60.5 42.1 - 71.9 % 03/21/2020 12:22 PM T [facility] MONOCYTES % 11.5 5.7 - 12.5 % 03/21/2020 12:22 PM T [facility] EOSINOPHILS 1.5 0.0 - 5.6 % 03/21/2020 12:22 PM [facility] BASOPHILS 0.5 0.0 - 1.3 % 03/21/2020 12:22 PM T [facility] ABS. NEUTROPHILS TOTAL 4.40 1.40 - 6.00 x10'3/uL 03/21/2020 12:22 PM CDT [facility] IMMATURE GRANS % 2.9(H) 0.0 - 0.5 % 03/21/2020 12:22 PM CDT [facility] ABS. LYMPHOCYTES 1.68 0.80 - 4.70 x10'3/uL 03/21/2020 12:22 PM CDT [facility] 03/21/2020 12:0 9 PM CDT Pollo Hogue CLARIFIER OPERATOR LABORATORY Final Result [facility] [address] [place] [address], [place] [phone] * US RETROPERITONEAL COMP (03/21/2020 10:53 AM [...] COMPARISON: CT 03/19/2020 TECHNIQUE: Examination performed by oceanographer assistant using grayscale with color flow and spectral Doppler. Selected images submitted for interpretation. Worksheet completed. Procedure Note Driss Garcia MD - 03/21/2020 IMAGING STUDIES:US RETROPERITONEAL COMP DATE: 03/21/2020 9:33 AM INDICATION: left renal lesion noted on CT COMPARISON: CT 03/19/2020 TECHNIQUE: Examination performed by oceanographer assistant using grayscalewith color flow and spectral Doppler. [...] Driss Garcia, 03/21/2020 12:23 PM Cara Alvarado [employer] [facility]TRAS[facility] Final Re sult * POCT glucose (03/21/2020 6:07 AM CDT) GLUCOSE POC 107 70 - 110 mg/dL 03/21/2020 6:12 AM CDT [facility] 03/21/2020 6:07 AM CDT Durga Parekh MD POCT ORDERABLES - DEVICE Final Result [facility] [address] [place] [address], [place] [phone] * O&P CONC&SMEAR TO REF LAB (03/20/2020 12:25 PM CDT) SPECIMEN SOURCE STOOL 0 12:54 PM CDT [facility] O & P EXAMINATION (STOOL) REPORT 03/29/2020 8:32 PM CDT [facility] JAD-MRAGRET HUMPHRIES Comment: Ova and Parasites, Concentrate and Permanent Smear Examination for Ova and Parasites SOURCE : STOOL Result/Comment: NO OVA AND PARASITES SEEN. Reference Range: ??No Ova and Parasites seen Routine Ova and Parasite Exam may not detect some parasites that occasionally cause diarrheal illness. Test code(s) 62592Z[37385](Cryptosporidium Ag, DFA) and/or 21964Q[10879] (Cyclospora and Isospora Exam) may be ordered to detect these parasites. One negative sample does not necessarily rule out the presence of a parasitic infection. Assay performed by wet mount after concentration. Parasite Exam, Trichrome Stain SOURCE : STOOL Result/Comment: NO OVA AND PARASITES SEEN. Routine Ova and Parasite Exam may not detect some parasites that occasionally cause diarrheal illness. Test code(s) 66610P[47657](Cryptosporidium Ag, DFA) and/or 24043L[57217] (Cyclospora and Isospora Exam) may be ordered to detect these parasites. One negative sample does not necessarily rule out the presence of a parasitic infection. For additional information, please refer to https://education.[employer]/faq/REW597 (This link is being provided for informational/ educational purposes only.) Test Performed by Sierra Nelson [facility], [address] [place], [place] Gamal Gao M.D., Ph.D., Director of Laboratories , [place] [id number] STOOL SPECIMEN / Unknown 03/20/2020 12:25 PM CDT Durga Parekh MD MICROBIOLOGY - GENERAL ORDERAB LES Final Result [facility] [id number] [place] [address], [place] [phone] [facility] [address] [place] [address], [place] [phone] * CLOSTRIDIUM DIFFICILE (03/20/2020 11:25 AM CDT) C DIFFICILE TOXIN (STOOL) NEGATIVE NEGATIVE 03/20/2020 2:14 PM CDT [facility] STOOL SPECIMEN / Unknown 03/20/2020 11:25 AM CDT Durga Parekh MD BODY FLUIDS AND STOOLS ORDERAB LES Final Result [facility] [address] [place] [address], [place] [phone] * (ABNORMAL) LIPID PANEL (03/20/2020 5:30 AM CDT) Pathologist [facility] CHOLESTEROL 51 <200.0 MG/DL 03/20/2020 6:40 AM CDT [facility] TRIGLYCERIDES 47 <150 MG/DL 03/20/2020 6:40 AM T [facility] HDL 36(L) >40.0 MG/DL 03/20/2020 6:40 AM T [facility] LDL (CALCULATED) 6 <100 MG/DL 03/20/20 20 6:40 AM T [facility] NON HDL CHOLESTEROL 15 <130 MG/DL 03/20 6:40 AM T [facility] CHOL/HDL RATIO 1.4 0.0 - 4.5 03/20/2020 6:40 AM T [facility] VLDL CALCULATION 9 5 - 55 MG/DL 03/20/2020 6:40 AM CDT [facility] LIPID INTERPRETATION 03/20/2020 6:40 AM T [facility] Comment: NIH CONCENSUS REPORT [...] us Madison Aaron MD LABORATORY Final Result [facility] () [facility] [address] [place] [phone], * (ABNORMAL) MAGNESIUM (03/20/2020 5:30 AM CDT) Pathologist [facility] MAGNESIUM 1.6(L) 1.8 - 2.4 MG/DL 03/20/2020 6:38 AM CDT [facility] 03/20/2020 5:30 AM CDT Madison Aaron MD LABORATORY Final Result [facility] [address] [place] [address], * (ABNORMAL) BASIC METABOLIC PANEL (03/20/2020 5:30 AM CDT) Pathologist [facility] GLUCOSE 74 70 - 99 MG/DL 03/20/2020 [...] 15.1 6 - 26 03/20/2020 6:38 AM CDT [facility] EGFR NON-AFR. AMER. 31(L) [...] calculating drug doses. 03/20/2020 5:30 AM CDT us Madison Aaron MD LABORATORY Final Result [facility] [address] [place] [address], * (ABNORMAL) CBC W/DIFF AUTOMATED (03/20/2020 5:30 AM CDT) WBC 11.2(H) 4.4 - 11.0 x10'3/uL 03/20/2020 6:30 AM CDT [facility] RBC 3.10(L) 4.50 - 5.10 x10'6/uL 03/20/2020 6:30 AM CDT [facility] HGB 7.8(L) 12.3 - 15.3 G/DL 03/20/2020 6:30 AM T [facility] HCT 25.6(L) 35.9 - 44.6 % 03/20/2020 6:30 AM T [facility] MCV 82.6 80.0 - 96.0 FL 03/20/2020 6:30 AM CDT [facility] MCH 25.2(L) 25.3 - 30.9 PG 03/20/2020 6:30 AM T [facility] MCHC 30.5(L) 31.0 - 34.1 G/DL 03/20/2020 6:30 AM T [facility] RDW 16.1(H) 12.4 - 15.1 % 03/20/2020 6:30 AM T [facility] PLT 336 151 - 353 x10'3/uL 03/20/2020 6:30 AM [facility] MPV 9.0(L) 9.6 - 12.0 FL 03/20/2020 6:30 AM [facility] RBC MORPHOLOGY NORMAL 03/20/2020 6:30 AM [facility] PLT MORPH. NORMAL 03/20/2020 6:30 AM [facility] WBC MORPHOLOGY NORMAL 03/20/2020 6:30 AM [facility] LYMPHOCYTES % 15.5(L) 15.8 - 45.0 % 03/20/2020 6:30 AM [facility] NEUTROPHILS % 70.7 42.1 - 71.9 % 03/20/2020 6:30 AM T [facility] MONOCYTES % 11.5 5.7 - 12.5 % 03/20/2020 6:30 AM [facility] EOSINOPHILS 0.8 0.0 - 5.6 % 03/20/2020 6:30 AM [facility] BASOPHILS 0.3 0.0 - 1.3 % 03/20/2020 6:30 AM [facility] ABS. NEUTROPHILS TOTAL 7.93(H) 1.40 - 6.00 x10'3/uL 03/20/2020 6:30 AM CDT [facility] IMMATURE GRANS % 1.2(H) 0.0 - 0.5 % 03/20/2020 6:30 AM CDT [facility] ABS. LYMPHOCYTES 1.74 0.80 - 4.70 x10'3/uL 03/20/2020 6:30 AM CDT [facility] 03/20/2020 5:30 AM CDT Madison Aaron MD LABORATORY Final Result Performing Organization Address City/[facility]/ZIP Co de Phone Number [facility] [address] [place] [address], [place] [phone] * CULTURE, BACTERIA, BLOOD (03/20/2020 5:21 AM CDT) SPEC DESCRIPTION BLOOD 03/19/2020 11:05 PM CDT [facility] SPECIAL REQUESTS NO SPECIAL REQUEST 03/19/2020 11:05 PM CDT [facility] CULTURE RESULT NO GROWTH 5 DAYS 2020 3:42 PM CDT [facility] BLOOD SPECIMEN OBTAINED FOR BLOOD CULTURE / Unknown 03/20/2020 5:21 AM CDT 03/20/2020 5:22 AM CDT Mahesh Nelson MD MICROBIOLOGY - GENERAL MIA LEARY Final Result [facility] [address] [place] [address], [place] [phone] [facility] [address] [place] [address], [place] [phone] * (ABNORMAL) CULTURE, BACTERIA, BLOOD (03/20/2020 5:21 [...] IS INDICATED. (AA) 03/23/2020 9:47 AM CDT [facility] CULTURE RESULT CALLED TO AND READ BACK BY CHIKA BORREGO ON 03/22/20 AT 0250 BY [facility] 03/23/2020 9:47 AM CDT [facility] BLOOD SPECIMEN OBTAINED FOR BLOOD CULTURE / Unknown 03/20/2020 5:21 AM CDT 03/20/2020 5:22 AM CDT Mahesh Nelson MD MICROBIOLOGY - GENERAL MIA LEARY Final Result [facility] [address] [place] [address], [facility] [address] [place] [address], * ECG 12 lead (03/19/2020 11:20 PM CDT) 03/19/2020 11:[address] [facility] - 03/20/2020 7:18 AM CDT ?[facility] ? Test Date: ?2020-03-19 Pat Name: ? RADHA ALLEN ? Department: ? Room: ? 120 Gender: ? Female ? 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 : ?1945 ? Requested By: MAHESH BRAHMAVAR Order Number: [id number] ? Reading MD: ?? Keven Gunter ? Measurements Intervals ?[place] ? Rate: ? 78 ? P: ?53 WA: ? 137 ?QRS: ?22 QRSD: ? 87 ? T: ?12 QT: ? 355 ? QTc: ?405 ? Interpretive Statements SINUS RHYTHM LOW QRS VOLTAGE IN PRECORDIAL LEADS ?? No previous ECG available for comparison Procedure Note Keven Gunter MD - 03/20/2020 [facility] Test Date: 2020-03-19 Pat Name: RADHA ALLEN Department: Room: 120 Gender: Female Brine Mixer Operator: : 1945 Requested By: MAHESH NELSON Order Number: [id number] Reading MD: Keven Gunter Measurements Intervals [place] Rate: 78 P: 53 WA: 137 QRS: 22 QRSD: 87 T: 12 QT: 355 QTc: 405 Interpretive Statements SINUS RHYTHM LOW QRS VOLTAGE IN PRECORDIAL LEADS No previous ECG available for comparison us Mahesh Nelson MD ECG ORDERABLES Final Resul t [facility] * CT ABD+PEL WO CON (03/19/2020 [...] LABORATORY Final Resul t Performing Organization Address [facility] Co de Phone Number [facility] [address] [place] [address], [place] [phone] * LIPASE (03/19/2020 8:45 PM CDT) LIPASE 74 73 - 393 UNITS/L 03/19/2020 9:19 PM CDT [facility] 03/19/2020 8:45 PM CDT us Mahesh Nelson MD LABORATORY Final Resul t Performing Organization Address [facility]/ZIP Co de Phone Number [facility] [address] [place] [address], [place] [phone] * (ABNORMAL) COMPREHENSIVE METABOLIC PANEL (03/19/2020 8:45 PM CDT) GLUCOSE 107(H) 70 - 99 MG/DL 03/19/2020 9:19 PM CDT [facility] BUN 28(H) 7 - 18 MG/DL 03/19/2020 9:19 PM CDT [facility] CREATININE S/P/B 2.27(H) 0.55 - 1.02 MG/DL 03/19/2020 9:19 PM [facility] SODIUM S/P/B 135(L) 136 - 145 MMOL/L 03/19/2020 9:19 PM [facility] POTASSIUM S/P/B 5.3(H) 3.5 - 5.1 MMOL/L 03/19/2020 9:19 PM [facility] CHLORIDE S/P/B 102 100 - 108 MMOL/L 03/19/2020 9:19 PM [facility] CO2 20.2(L) 21 - 32 MMOL/L 03/19/2020 9:19 PM [facility] CALCIUM S/P/B 8.4(L) 8.5 - 10.1 MG/DL 03/19/2020 9:19 PM [facility] BILIRUBIN TOTAL S/P/B 0.4 0.2 - 1.2 MG/DL 03/19/2020 9:19 PM [facility] TOTAL PROTEIN S/P/B 7.4 6.4 - 8.2 G/DL 03/19/2020 9:19 PM [facility] ALBUMIN S/P/B 2.5(L) 3.4 - 5.0 G/DL 03/19/2020 9:19 PM [facility] AST 21 15 - 37 U/L 03/19/2020 9:19 PM [facility] ALT 16 14 - 55 U/L 03/19/2020 9:19 PM [facility] ALKALINE PHOSPHATASE S/P/B 103 50 - 136 U/L 03/19/2020 9:19 PM [facility] ANION GAP 12.8 5 - 15 MMOL/L 03/19/2020 9:19 PM [facility] BUN CREATININE RATIO 12.3 6 [...] LABORATORY Final Resul t [facility] [address] [place] [address], [place] [phone] * (ABNORMAL) CBC W/DIFF AUTOMATED (03/19/2020 8:45 PM CDT) WBC 18.1(H) 4.4 - 11.0 x10'3/uL 03/19/2020 9:03 PM CDT [facility] RBC 3.78(L) 4.50 - 5.10 x10'6/uL 03/19/2020 9:03 PM CDT [facility] HGB 9.5(L) 12.3 - 15.3 G/DL 03/19/2020 9:03 PM T [facility] HCT 31.0(L) 35.9 - 44.6 % 03/19/2020 9:03 PM CDT [facility] MCV 82.0 80.0 - 96.0 FL 03/19/2020 9:03 PM CDT [facility] MCH 25.1(L) 25.3 - [...] LAB BANDS 2 % 03/19/2020 9:20 PM CDT [facility] LYMPHOCYTES 13(L) 15.8 - [...] LAB PLT MORPH. NORMAL 03/19/2020 9:20 PM CDT [facility] RBC MORPHOLOGY NORMAL 03/19/2020 9:20 PM CDT [facility] WBC MORPHOLOGY NORMAL 03/19/2020 9:20 PM CDT [facility] 03/19/2020 8:45 PM CDT us Mahesh Nelson MD LABORATORY Final Resul t [facility] [address] [place] [address], [place] [phone] documented in this encounter Visit Diagnoses Not on filedocumented in this encounter Admitting Diagnoses Diagnosis Colitis Other and unspecified noninfectious gastroenteritis and colitis documented in this encounter Administered Medications Inactive Administered Medications - up to 3 most recent administrations Medication Order MAR Action Action Date Dose Rate Site amLODIPine (NORVASC) tablet 5 mg 5 mg, Oral, Daily, First dose on Afua 03/23/20 at 0900, Until Discontinued Given 03/23/2020 10:05 [...] 10:53 AM CDT 1 g 120 mL/hr enoxaparin (LOVENOX) 40 MG/0.4ML syringe 40 mg [...] AM CDT 40 mg Left Lower Abdomen methylPREDNISolone sodium succinate (SOLU-Medrol) injection 40 mg [...] dose on Fri03/22/20 at 1000, Until Discontinued New Bag 03/23/2020 10:16 AM CDT 500 mg 100 mL/hr New Bag 03/23/2020 2:45 AM CDT 500 mg 100 mL/hr New Bag 03/22/2020 5:41 PM CDT 500 mg 100 [...] contact pharmacy if medication order not entered.) pravastatin (PRAVACHOL) tablet 40 mg 40 mg, Oral, Nightly at bedtime, First dose on Fri03/20/20 at 0045, Until Discontinued Given 03/22/2020 8:50 PM CDT 40 m g Given 03/21/2020 8:22 PM CDT 40 mg Given 03/20/2020 8:22 PM CDT 40 mg sodium chloride 0.9% infusion at 75 mL/hr, Intravenous, Continuous, Starting on Fri03/21/20 at 1215, Until Fri03/23/20 at 1948 Rate/Dose Change 03/22/2020 4:03 PM CDT 75 mL/hr New Bag 03/22/2020 10:53 AM CDT 100 mL/hr New Bag 03/21/2020 10:00 PM CDT 100 mL/hr vancomycin (VANCOCIN) 1,000 mg in sodium chloride 0.9 % 250 mL IVPB 1,000 mg, Intravenous, at 260 mL/hr, Every 18 hours, First dose on Fri03/23/20 at 0000, Until Discontinued New Bag 03/22/2020 11:49 PM CDT 1,000 mg 260 mL/hr vitamin B-12 (CYANOCOBALAMIN) tablet 1,000 mcg [...] or crush. 2021 (Given - Provider: Chika Hatfield RN) 2049 (Given - Provider: Shu Pearl RN) [...] 2049 (Given - Provider: Shu Pearl RN) 1006 (Given - Provider: Tiera Trivedi, [...] RN) 0245 (New Bag - Provider: Shu Pearl, ELMO)0345 (Infusion Stop Time - Provider: Shu Pearl, ELMO)1016 (New Bag - Provider: Tiera Trivedi, Nurse [...] or crush. 2021 (Given - Provider: Chika Hatfield RN) 2049 (Given - Provider: Shu Pearl RN) pharmacy to dose vancomycin placeholder(Linked Group 2) [...] 0057 (Infusion Stop Time - Provider: Stacie Rendon, ELMO)0456 (New Bag - Provider: Stacie Rendon RN)0910 [...] Until Discontinued 2021 (Given - Provider: Chika Hatfield, ELMO) 2049 (Given - Provider: Shu Pearl, RN) sodium chloride 0.9% bolus infusion SOLN 250 [...] Discontinued 2349 (New Bag - Provider: Shu Pearl, ELMO) 0050 (Infusion Stop Time - Provider: Shu Pearl RN)1800 (Canceled Entry - Provider: Automatic Discharge Provider - Comment: Automatically canceled at discontinue of medication order) vancomycin (VANCOCIN) 1,500 mg in sodium chloride 0.9 % 500 mL IVPB (COMPLETED) 1,500 mg, Intravenous, at 257.5 mL/hr, Once, 1 dose, On Fri03/22/20 at 0430 0436 (New Bag - Provider: Chika Hatfield, ELMO)0634 (Infusion Stop Time - Provider: Cihka Hatfield, ELMO) vitamin B-12 (CYANOCOBALAMIN) tablet 1,000 mcg 1,000 mcg, Oral, Daily, First dose on Fri03/20/20 at 0900, Until Discontinued 0907 (Given - Provider: Salima Roe, Nurse Student) 1438 (Given - Provider: Minnie Nelson, ELMO) 1006 (Given - Provider: Tiera Trivedi, Nurse Student) Continuous Medication Order 03/21/2020 03/22/2020 03/23/2020 lactated ringers infusion (CANCELED) at 100 mL/hr, Intravenous, Continuous, Starting on Fri03/22/20 at 0930, Until Fri03/22/20 at 1537, For procedure 0900 (New Bag - Provider: Minnie Nelson, RN - Comment: was given in procedure area)1045 (Infusion Stop Time - Provider: Mninie Nelson RN) sodium chloride 0.9% infusion (CANCELED) at 75 mL/hr, Intravenous, Continuous, Starting on Fri03/20/20 at 0045, Until Fri03/21/20 at 1154 0121 (New Bag - Provider: Stacie Rendon RN) sodium chloride 0.9% infusion at 75 mL/hr, Intravenous, Continuous, Starting on Fri03/21/20 at 1215, Until Fri03/23/20 at 1948 1245 (New Bag - Provider: Salima Roe, Nurse Student)2200 (New Bag - Provider: Chika Hatfield RN) 1053 (New Bag - Provider: Minnie Nelson, ELMO)1603 (Rate/Dose Change - Provider: Minnie Nelson, ELMO) PRN Medication Order 03/21/2020 03/22/2020 03/23/2020 acetaminophen [...] reversal, Starting on Fri03/20/20 at 0023, Until Afua 03/23/20 at 1948 ondansetron (ZOFRAN) injection 4 mg 4 mg, Intravenous, Every 8 hours PRN, Nausea, Vomiting, Starting on Fri03/20/20 at 0023, Until Afua 03/23/20 at 1948, IV push over 2-5 minutes. polyethylene glycol (GoLYTELY) solution 4,000 mL (COMPLETED) 4,000 mL, Oral, As needed, administer 240 mL every 15 minutes until clear, 1 dose, Starting on Fri03/21/20 at 0842, Until Fri03/21/20 at 1654, Resume prep at 0500 time next morning, Pre-Procedure 165 (Given - Provider: Martina Jiménez RN) Linked [...] med Intravenous, See admin instructions, Starting on Fri03/22/20 at 0350, Until Fri03/23/20 at 194, Vancomycin Placeholder Only: Do NOT document administrations on this placeholder.(Use medication on SEP to document administrations or contact pharmacy if medication order not entered.) documented in this encounter Care Teams Contact Lens Edge Buffer Relationship Specialty Start Date End Date Jared Leyva MD PCP - General 08/28/11 07/16/22 documented as of this encounter
--- OUTSIDE RECORDS SUMMARY | 2024-07-12 19:34 | XMS_ITS | Encounter Summary ---
Author Organization [facility] Address [address] [facility] [place] [address] [place] [address] Care Team Providers Care Deal Architect Name Role Phone Jared Abrams MD Primary Care Provider [phone] Reason for Visit * Reason Comments Hospital Follow Up pt is getting better * Consultation/Treatment (Routine) - Closed Specialty Diagnoses / Procedures Referred By Angel braswell Referred To Contact GASTROENTEROLOGY Diagnoses Hospital f/u-EGD Procedures NEW PATIENT Vladimir Parsons MD [address] [facility] [address] [place] [address] Phone: tel: fax: Vladimir Parsons MD [address] [facility] [address] [place] [address] Phone: tel: fax: Referral ID Status Reason Start Date Expiration Date Visits Re quested Visits Authorized [id number] Closed 04/07/2020 04/07/2022 100 100 Encounter Details Date Type Department Care Team (Latest Contact Info) Description 04/07/2020 3:40 PM CDT Office Visit [facility] [address] [phone] Vladimir Parsons MD [address] [facility] [address] [place] [address] Hospital Follow Up (pt is getting better) Social History Tobacco Use Types Packs/Day Years [...] have Coronavirus / COVID-19? No / Unsure 04/07/2020 3:18 PM CDT documented as of this encounter Last Filed Vital Signs Vital Sign Reading Time Taken Comments Blood Pressure 134/62 04/07/2020 4:15 PM CDT Pulse 72 04/07/2020 4:15 PM CDT Temperature 36.7 ??C (98 ??F) 04/07/2020 4:15 PM CDT Respiratory Rate 18 04/07/2020 4:15 PM CDT Oxygen Saturation 95% 04/07/2020 4:15 PM CDT Inhaled Oxygen Concentration - - Weight 74.4 kg (164 lb) 04/07/2020 4:15 PM CDT Height - - Body Mass Index 30.99 03/20/2020 12:15 AM [...] Progress Notes * Vladimir Parsons MD - 04/07/2020 3:40 PM CDT Images from the original note were not included. Gastroenterology Established Visit Reason for Visit: Hospital Follow Up (pt is getting better) History of Present Illness: Hospital with ulcerative colitis diagnosis. Colonoscopy with multiple biopsies showing chronic active colitis. She was placed on steroids and is now doing well. She is done with her 2-week course of steroids and feels well. Medications: Current Outpatient Medications: ??? amLODIPine 5 MG tablet, Take 5 mg by mouth daily., Disp: , Rfl: ??? aspirin EC (ASPIRIN EC) 81 MG tablet, Take 81 mg by mouth nightly. , Disp: , Rfl: ??? ferrous sulfate EC 324 (65 Fe) MG tablet, Take 1 tablet (324 mg total) by mouth daily with breakfast., Disp: 30 tablet, Rfl: 0 ??? metFORMIN 500 MG tablet, Take 500 [...] mcg by mouth daily., Disp: , Rfl: ??? cholestyramine 4 G packet, Take 4 g by mouth 2 (two) times daily with meals., Disp: , Rfl: ??? diphenoxylate-atropine 2.5-0.025 MG tablet, Take 1 tablet by mouth 2 (two) times a day., Disp: , Rfl: ??? naproxen sodium 220 MG tablet, Take 220 mg by mouth every evening., Disp: , Rfl: Allergies: No Known Allergies Medical History: Past Medical History: Diagnosis Date ??? Diabetes mellitus (CMS/HCC) ??? GERD (gastroesophageal reflux disease) ??? Hypercholesteremia ??? Hypertension Surgical History: Past Surgical History: Procedure Laterality Date ??? COLONOSCOPY N/A 03/22/2020 colonoscopy with biopsies performed by Vladimir Parsons MD at [facility] OR ??? PARTIAL HIP REPLACEMENT Left ??? TUBAL LIGATION PE: Filed Vitals: 04/07/20 1615 BP: 134/62 Pulse: 72 Resp: 18 Temp: 98 ??F (36.7 ??C) TempSrc: Temporal SpO2: 95% Weight: 74.4 kg (164 lb) General: In NAD, pleasant and appropriate HEENT: Anicteric Neuro: A&Ox3 Labs: Labs Reviewed @LAB@ Diagnoses/Impression: New onset of ulcerative colitis. She will need to be treated with medications and will need to haveregular surveillance exams. Recommendations and Plan: Start Lialda 4 tablets daily. See me in 3 months. She will need a surveillance colonoscopy every 2 years. VLADIMIR PARSONS MD 04/07/2020 Voice recognition software utilized documented in this encounter Plan of Treatment Upcoming Encounters Date Type Department Care Team (Late st Contact Info) Description 08/03/2024 2:00 PM CUSTOMER STRATEGY MANAGER Appointment [address] [address] Josué Cook MD [address] [facility] [address] [place] [address] documented as of this encounter Goals Goal Patient Goal Type Associated Problems Recent Progress Patient-Stated? Author [facility]DEP[facility]IV[facility] General No Vannessa Blackwell, RN documented as of this encounter Visit Diagnoses Diagnosis Ulcerative colitis with complication, unspecified location (CMS/HCC [facility]/HCC)- Primary documented in this encounter Care Teams Deal Architect Relationship Specialty Start Date End Date Jared Abrams MD PCP - General 08/28/11 07/16/22 documented as of this encounter
--- OUTSIDE RECORDS SUMMARY | 2024-07-12 19:34 | XMS_ITS | Encounter Summary ---
Author Organization [facility] Address [address] [facility] [address] [place] [address] Care Team Providers Care Soil Science Teacher Name Role Phone Jared Abrams MD Primary Care Provider [phone] Encounter Details Date Type Department Care Team (Latest Contact Info) Description 03/30/2020 1:25 PM CDT - 03/30/2020 11:59 PM CDT Hospital Encounter [facility] [address] [place] [address] Pollo Lopez, [facility] [place] [address] Discharge Disposition: Home or Self Care (Routine [...] have Coronavirus / COVID-19? No / Unsure 03/30/2020 1:26 PM CDT documented as of this encounter [...] 03/23/2020 0 documented as of this encounter Plan of Treatment Upcoming Encounters Date Type Department Care Team (Late st Contact Info) Description 08/03/2024 2:00 PM SILVER BUFFER Appointment [facility] Day [address] [address] Josué Cook MD [address] [facility] [address] [place] [address] documented as of this encounter Goals Goal Patient Goal Type Associated Problems Recent Progress Patient-Stated? Author HOME TO [facility] Vannessa Light RN documented as of this encounter Procedures Procedure Name Priority Date/Time Associated Diagnosis Comments BASIC METABOLIC PANEL Routine 03/30/2020 1:30 PM CDT JENNY (acute kidney injury) Ulcerative colitis without complications, unspecified location ([facility]) CBC W/DIFF AUTOMATED Routine 03/30/2020 1:30 PM CDT Ulcerative colitis without complications, unspecified location ([facility]) Iron deficiency anemia, unspecified iron deficiency anemia type documented in this encounter Results * (ABNORMAL) CBC W/DIFF AUTOMATED (03/30/2020 1:30 PM CDT) WBC 12.7(H) 4.4 - 11.0 x10'3/uL 03/30/2020 1:45 PM CDT [facility] RBC 3.58(L) 4.50 - 5.10 x10'6/uL 03/30/2020 1:45 PM T [facility] HGB 9.2(L) 12.3 - 15.3 G/DL 03/30/2020 1:45 PM T [facility] HCT 30.1(L) 35.9 - 44.6 % 03/30/2020 1:45 PM CDT [facility] MCV 84.1 80.0 - 96.0 FL 03/30/2020 1:45 PM T [facility] MCH 25.7 25.3 - 30.9 PG 03/30/2020 1:45 PM T [facility] MCHC 30.6(L) 31.0 - 34.1 G/DL 03/30/2020 1:45 PM T [facility] RDW 20.0(H) 12.4 - 15.1 % 03/30/2020 1:45 PM T [facility] PLT 372(H) 151 - 353 x10'3/uL 03/30/2020 1:45 PM T [facility] MPV 8.6(L) 9.6 - 12.0 FL 03/30/2020 1:45 PM T [facility] SEG NEUTROPHILS 88(H) 42 - 72 % 0 1:59 PM CDT [facility] LYMPHOCYTES 9(L) 15.8 - 45.0 % 03/30/2020 1:59 PM T [facility] MONOCYTES 3(L) 5.7 - 12.5 % 03/30/2020 1:59 PM T [facility] ABS. NEUTROPHILS TOTAL 11.18(H) 1.40 - 6.00 x10'3/uL 03/30/2020 1:59 PM CDT [facility] ABS. LYMPHOCYTES 1.14 0.80 - 4.70 x10'3/uL 03/30/2020 1:59 PM CDT [facility] PLT MORPH. NORMAL 03/30/2020 1:59 PM CDT [facility] RBC MORPHOLOGY SLIGHT 03/30/2020 1:59 PM CDT [facility] Comment:ANISOCYTOSIS WBC MORPHOLOGY NORMAL 03/30/2020 1:59 PM CDT [facility] 03/30/2020 1:30 PM CDT Pollo Lopez APRN LABORATORY Edited Result - Final [facility] [id number] [place] [id number], * (ABNORMAL) BASIC METABOLIC PANEL (03/30/2020 1:30 PM CDT) GLUCOSE 144(H) 70 - 99 MG/DL 03/30/2020 1:56 PM CDT [facility] BUN 12 7 - 18 MG/DL 03/30/2020 1:56 PM CDT [facility] CREATININE S/P/B 0.95 0.55 - 1.02 MG/DL 03/30/2020 1:56 PM CDT [facility] SODIUM S/P/B 141 136 - 145 MMOL/L 03/30/2020 1:56 PM CDT [facility] POTASSIUM S/P/B 3.4(L) 3.5 - 5.1 MMOL/L 03/30/2020 1:56 PM CDT [facility] CHLORIDE S/P/B 104 100 - 108 MMOL/L 03/30/2020 1:56 PM CDT [facility] CO2 28.8 21 - 32 MMOL/L 03/30/2020 1:56 PM CDT [facility] CALCIUM S/P/B 8.9 8.5 - 10.1 MG/DL 03/30/2020 1:56 PM CDT [facility] ANION GAP 8.2 5 - 15 MMOL/L 03/30/2020 1:56 PM CDT [facility] BUN CREATININE RATIO 12.6 6 - 26 03/30/2020 1:56 PM CDT [facility] EGFR NON-AFR. AMER. 58(L) >90 ML/MIN/1.7 3 M2 03/30/2020 1:56 PM T [facility] EGFR AFR. AMER. 67(L) >90 ML/MIN/1.7 3 M2 03/30/2020 1:56 PM T [facility] Comment: NOTE: eGFR is not calculated for patients <18 years of age. This is an estimated GFR (CKD EPI) and should not be used for calculating drug doses. 03/30/2020 1:30 PM CDT Obdulio Darian Lopez PRIMER POWDER BLENDER WET LABORATORY Final Result [facility] [id number] [address] [address] [id number], documented in this encounter Visit Diagnoses Diagnosis JENNY (acute kidney injury) ([facility]) Acute kidney failure, unspecified Ulcerative colitis without complications, unspecified location ([facility]) Iron deficiency anemia, unspecified iron deficiency anemia type documented in this encounter Care Teams Soil Science Teacher Relationship Specialty Start Date End Date Jared Abrams MD PCP - General 08/28/11 07/16/22 documented as of this encounter
--- OUTSIDE RECORDS SUMMARY | 2024-07-12 19:34 | XMS_ITS | Encounter Summary ---
Author Organization [facility] Address [address] [place] [address] [place] [address] Care Team Providers Care Camp Guard Name Role Phone Jared Abrams MD Primary Care Provider [phone] Reason for Visit * Reason Comments Ulcerative Colitis pt is here for a 3 m [facility] follow up, has questions regarding medication * Consultation/Treatment (Routine) - Closed Specialty Diagnoses / Procedures Referred By Angel t Referred To Contact GASTROENTEROLOGY Diagnoses FOLLOW UP Jared Abrams MD [facility] [place] [address] Phone: tel: fax: Vladimir Parsons MD [address] [address] Phone: tel: fax: Referral ID Status Reason Start Date Expiration Date Visits Re quested Visits Authorized [id number] Closed 07/07/2020 07/07/2022 100 100 Encounter Details Date Type Department Care Team (Latest Contact Info) Description 07/07/2020 3:40 PM DIGITAL DESIGNER Office Visit [facility] [address] [address] Vladimir Parsons MD [address] [address] Ulcerative Colitis (pt is here for a 3 month follow up, has questions regarding medication) Social History Tobacco Use Types Packs/Day Years [...] have Coronavirus / COVID-19? No / Unsure 07/07/2020 3:04 PM DIGITAL DESIGNER documented as of this encounter Last Filed Vital Signs Vital Sign Reading Time Taken Comments Blood Pressure 122/64 07/07/2020 3:30 PM DIGITAL DESIGNER Pulse 72 07/07/2020 3:30 PM DIGITAL DESIGNER Temperature - - Respiratory Rate 18 07/07/2020 3:30 PM DIGITAL DESIGNER Oxygen Saturation 96% 07/07/2020 3:30 PM DIGITAL DESIGNER Inhaled Oxygen Concentration - - Weight 73 kg (161 lb) 07/07/2020 3:30 PM DIGITAL DESIGNER Height 154.9 cm (5' 1 ) 07/07/2020 3:30 PM DIGITAL DESIGNER Body Mass Index 30.42 07/07/2020 3:30 PM DIGITAL DESIGNER documented in this encounter Functional Status * [...] Progress Notes * Vladimir Parsons MD - 07/07/2020 3:40 PM CST Images from the original note were not included. Gastroenterology Established Visit Reason for Visit: Ulcerative Colitis (pt is here for a 3 month follow up, has questions regarding medication) History of Present Illness: He is doing well. She does complain of some shoulder pain and some arthritis. Took her last dose ofLialda today. Her ulcerative colitis seems to be well controlled with 2 bowel movements nonbloody daily. No abdominal pain. Recently had a UTI and took some Macrobid for 7 days. She needs a medication renewal. Medications: Current Outpatient Medications: ??? amLODIPine 5 [...] Disp: 30 tablet, Rfl: 0 ??? mesalamine EC (LIALDA) 1.2 g Tab EC tablet, Take 4 tablets (4.8 g total) by mouth daily. with food, Disp: 360 tablet, Rfl: 3 ??? metFORMIN 500 MG tablet, [...] biopsies performed by Vladimir Parsons MD at [facility] OR ??? PARTIAL HIP REPLACEMENT Left ??? TUBAL LIGATION PE: Filed Vitals: 07/07/20 1530 BP: 122/64 Pulse: 72 Resp: 18 SpO2: 96% Weight: 73 kg (161 lb) Height: 5' 1 (1.549 m) General: In NAD, pleasant and appropriate HEENT: Anicteric Skin: Anicteric, no rashes Neuro: A&Ox3 Labs: Labs Reviewed @LAB@ Diagnoses/Impression: Ulcerative colitis. Doing well on Lialda. We will decrease her dosage to maintenance dosage of 2.4 g daily. Recommendations and Plan: Lialda 2.4 g daily VLADIMIR PARSONS MD 07/07/2020 Voice recognition software utilized TAL DESIGNER documented in this encounter Plan of Treatment Upcoming Encounters Date Type Department Care Team (Late st Contact Info) Description 08/03/2024 2:00 PM DIGITAL DESIGNER Appointment [address] [address] Josué Cook MD [address] [facility] 8 [place] [address] documented as of this encounter Goals Goal Patient Goal Type Associated Problems Recent Progress Patient-Stated? Author [facility] General No Vannessa Blackwell RN documented as of this encounter Visit Diagnoses Diagnosis Ulcerative colitis with complication, unspecified location (CMS/HCC [facility]/HCC) documented in this encounter Care Teams Camp Guard Relationship Specialty Start Date End Date Jared Abrams MD PCP - General 08/28/11 07/16/22 documented as of this encounter
--- OUTSIDE RECORDS SUMMARY | 2024-07-12 19:34 | XMS_ITS | Encounter Summary ---
Author Organization [facility] Address [address] [facility] [place] [address] [place] [address] Care Team Providers Care Cephalometric Technician Name Role Phone Jared Abrams MD Primary Care Provider [phone] Reason for Visit * Reason Comments Follow Up uc * Consultation/Treatment (Routine) - Closed Specialty Diagnoses / Procedures Referred By Angel braswell Referred To Contact GASTROENTEROLOGY Diagnoses FU Procedures FOLLOW UP Jared Abrams MD [address] [place] [address] Phone: tel: fax: Vladimir Parsons MD [address] [place] [address] Phone: tel: fax: Referral ID Status Reason Start Date Expiration Date Visits Re quested Visits Authorized [id number] Closed 11/16/2020 07/06/2022 100 100 Encounter Details Date Type Department Care Team (Late st Contact Info) Description 07/06/2021 2:40 PM GREEN BUILDING ARCHITECT Office Visit [facility] [address] [address] Vladimir Parsons MD [address] [place] [address] Follow Up (uc) Social History Tobacco Use Types Packs/Day Years [...] COVID-19? No / Unsure 07/06/2021 2:18 PM GREEN BUILDING ARCHITECT documented as of this encounter Last Filed Vital Signs Vital Sign Reading Time Taken Comments Blood Pressure 136/84 07/06/2021 3:14 PM GREEN BUILDING ARCHITECT Pulse 72 07/06/2021 3:14 PM GREEN BUILDING ARCHITECT Temperature 36.2 ??C (97.2 ??F) 07/06/2021 3:14 PM CS T Respiratory Rate - - Oxygen Saturation 95% 07/06/2021 3:14 PM GREEN BUILDING ARCHITECT Inhaled Oxygen Concentration - - Weight 76.2 kg (168 lb) 07/06/2021 3:14 PM GREEN BUILDING ARCHITECT Height 154.9 cm (5' 1 ) 07/06/2021 3:14 PM GREEN BUILDING ARCHITECT Body Mass Index 31.74 07/06/2021 3:14 PM GREEN BUILDING ARCHITECT documented in this encounter Functional Status * [...] Progress Notes * Vladimir Parsons MD - 07/06/2021 2:40 PM CST Images from the original note were not included. Gastroenterology Established Visit Reason for Visit: Follow Up (uc) History of Present Illness: Lisa is still having diarrhea about 5 times a day. No blood however. No abdominal pain. She is wondering if her medication is even helping her. She is currently on Lialda for ulcerative colitis but feels like it is too expensive. Medications: Current Outpatient Medications: ??? amLODIPine 5 [...] (LIALDA) 1.2 g Tab EC tablet, Take 2 tablets (2.4 g total) by mouth daily. with food, Disp: 180 tablet, Rfl: 3 ??? metFORMIN 500 MG [...] by mouth daily., Disp: , Rfl: ??? diphenoxylate-atropine 2.5-0.025 MG tablet, Take 1 tablet by mouth 2 (two) times a day., Disp: , Rfl: Allergies: No Known Allergies Medical History: Past Medical History: Diagnosis Date ??? Diabetes mellitus (CMS/HCC) ??? GERD (gastroesophageal reflux disease) ??? Hypercholesteremia ??? Hypertension Surgical History: Past Surgical History: Procedure Laterality Date ??? COLONOSCOPY N/A 03/22/2020 colonoscopy with biopsies performed by Vladimir Parsons MD at [facility] OR ??? PARTIAL HIP REPLACEMENT Left ??? TUBAL LIGATION PE: Filed Vitals: 07/06/21 1514 BP: 136/84 Pulse: 72 Temp: 97.2 ??F (36.2 ??C) SpO2: 95% Weight: 76.2 kg (168 lb) Height: 5' 1 (1.549 m) General: In NAD, pleasant and appropriate HEENT: Anicteric Cardiovascular: RRR, no m Pulmonary: CTA BL, no added sounds Abdomen: Soft, ND/NT, normoactive BS Skin: Anicteric, no rashes Neuro: A&Ox3 Labs: Labs Reviewed @LAB@ Diagnoses/Impression: Ulcerative colitis. Patient only having a diarrhea but nonbloody. We will change her to a differentformula for mesalamine and try to save her some money. Recommendations and Plan: Flexible sigmoidoscopy. We will try and switch to a different form of mesalamine to help save her money. Risks/Benefits/Options: Patient presented with risks (can include but are not limited to: discomfort, missing lesions, allergic or adverse reaction to the sedation, perforation of the bowel which may require hospitaliztion and surgery, bleeding, infection, aspiration), benefits, and alternatives to the procedure(s) and they are in agreement to proceed as planned. VLADIMIR PARSONS MD 07/07/2021 Voice recognition software utilized N BUILDING ARCHITECT documented in this encounter Plan of Treatment Upcoming Encounters Date Type Department Care Team (Late st Contact Info) Description 08/03/2024 2:00 PM GREEN BUILDING ARCHITECT Appointment [facility] [address] [place] [address] Josué Cook MD [address] [facility] 8 [place] [address] documented as of this encounter Goals Goal Patient Goal Type Associated Problems Recent Progress Patient-Stated? Author HOME TO [facility] General No Vannessa Blackwell RN documented as of this encounter Visit Diagnoses Diagnosis Ulcerative pancolitis without complication (CMS/HCC HHS/HCC)- Primary documented in this encounter Additional Health Concerns Assessment Noted Time PHQ-9 Depression Total Score: 0 07/06/20 21 4:06 PM GREEN BUILDING ARCHITECT documented as of this encounter Care Teams Cephalometric Technician Relationship Specialty Start Date End Date Jared Abrams MD PCP - General 08/28/11 07/16/22 documented as of this encounter
--- OUTSIDE RECORDS SUMMARY | 2024-07-12 19:34 | XMS_ITS | Encounter Summary ---
Author Organization [facility] Address [address] [place] [address] [place] [address] Care Team Providers Care Sheep Sorter Name Role Phone Jared Abrams MD Primary Care Provider [phone] Encounter Details Date Type Department Care Team (Latest Contact Info) Description 10/26/2021 Travel Social History Tobacco Use Types Packs/Day [...] Contact Info) Description 08/03/2024 2:00 PM RETAIL ACCOUNT REPRESENTATIVE Appointment [address] [address] Josué oCok MD [address] [address] documented as of this encounter Goals Goal Patient Goal Type Associated Problems Recent Progress Patient-Stated? Author [facility] General No Vannessa Blackwell RN documented as of this encounter Visit Diagnoses Not on filedocumented in this encounter Additional Health Concerns Assessment Noted Time PHQ-9 Depression Total Score: 0 07/06/20 21 4:06 PM RETAIL ACCOUNT REPRESENTATIVE documented as of this encounter Care Teams Sheep Sorter Relationship Specialty Start Date End Date Jared Abrams MD PCP - General 08/28/11 07/16/22 documented as of this encounter
--- OUTSIDE RECORDS SUMMARY | 2024-07-12 19:34 | XMS_ITS | Encounter Summary ---
Author Organization [facility] Address [address] [facility] [place] [address] [place] [address] Care Team Providers Care Improvement Specialist Name Role Phone Jared Abrams MD Primary Care Provider Encounter Details Date Type Department Care Team (Latest Contact Info) Description 07/06/2021 Travel Social History Tobacco Use Types Packs/Day [...] COVID-19? No / Unsure 07/06/2021 2:18 PM CORN SHELLER documented as of this encounter Functional Status [...] st Contact Info) Description 08/03/2024 2:00 PM CORN SHELLER Appointment [facility] [id number] [place] [address] Josué Cook MD [address] [address] documented as of this encounter Goals Goal Patient Goal Type Associated Problems Recent Progress Patient-Stated? Author [facility] General No Vannessa Blackwell RN documented as of this encounter Visit Diagnoses Not on filedocumented in this encounter Additional Health Concerns Assessment Noted Time PHQ-9 Depression Total Score: 0 07/06/20 21 4:06 PM CORN SHELLER documented as of this encounter Care Teams Improvement Specialist Relationship Specialty Start Date End Date Jared Abrams MD PCP - General 08/28/11 07/16/22 documented as of this encounter
--- OUTSIDE RECORDS SUMMARY | 2024-07-12 19:34 | XMS_ITS | Encounter Summary ---
Author Organization [facility] Address [address] [facility] [place] [address] [place] [address] Care Team Providers Care Order Manager Name Role Phone Jared Abrams MD Primary Care Provider [phone] Reason for Visit * Reason Onset Date Comments Medication 08/24/2021 Encounter Details Date Type Department Care Team (Late st Contact Info) Description 08/24/2021 Telephone [facility] [address] [facility], [address] [place] [id number] Vladimir Parsons MD [address] [facility] [address] [place], [place] [id number] Medication Social History Tobacco Use Types Packs/Day Years [...] encounter Progress Notes * Kimberley Pang - 09/03/2021 1:11 PM CST Attempted to contact patient a few times phone line was busy. BEAM FITTER * Riri Maldonado - 09/03/2021 1:02 PM CST Patient is calling Kimberley back. Call patient at [phone]. BEAM FITTER * Kimberley Pang - 09/03/2021 11:26 AM CST Spoke with patient's daughter Aby message given. She will talk with her mom about rescheduling Flex-sig and call the office back. BEAM FITTER * Kimberley Pang - 08/31/2021 9:27 AM CST LVM for pt to give the office a call back. BEAM FITTER * Corrina Muniz NP - 08/28/2021 4:13 PM CST Pt was to have flex sig in June and had a fall. I would arrange pt to get this soon so we can change from mesalamine if needed. Pt can try the antidiarrheals but caution constipation. I am unsureif the pseudogout can be influenced. With autoimmune condition of UC it can make her more vulnerable to many conditions. BEAM FITTER * Kimberley Pang - 08/28/2021 3:51 PM CST Spoke with patient's daughter patient was prescribed anti diarrhea medication by her pcp. She askedif Dr. Parsons would like her to take that medication? [facility] was diagnosedwith suspected Pseudogout. She asked if her ulcerative colitis caused it and how could it be avoided? BEAM FITTER * Kimberley Pang - 08/27/2021 2:44 PM CST Returned patient's daughter call left a voicemail message. BEAM FITTER * Rhonda Hopkins - 08/24/2021 9:38 AM CST Lisa's daughter called with some information and a question. Daughter stated that Lisa has been having diarrhea and on 08/09 her PCP prescribed her a medication that is contradicting to Lisa's condition. Please follow up with daughter at [phone] to discuss and advise. BEAM FITTER documented in this encounter Plan of Treatment Upcoming Encounters Date Type Department Care Team (Late st Contact Info) Description 08/03/2024 2:00 PM MILL BEAM FITTER Appointment [facility] [address] [place] [address] Josué Cook MD [address] [facility] 8 [place] [address] documented as of this encounter Goals Goal Patient Goal Type Associated Problems Recent Progress Patient-Stated? Author HOME TO [facility] General Vannessa Light RN documented as of this encounter Visit Diagnoses Not on filedocumented in this encounter Additional Health Concerns Assessment Noted Time PHQ-9 Depression Total Score: 0 07/06/20 21 4:06 PM MILL BEAM FITTER documented as of this encounter Care Teams Order Manager Relationship Specialty Start Date End Date Jared Abrams MD PCP - General 08/28/11 07/16/22 documented as of this encounter
--- OUTSIDE RECORDS SUMMARY | 2024-07-12 19:34 | XMS_ITS | Encounter Summary ---
Author Organization [facility] Address [address] [place] [address] [place] [address] Care Team Providers Care Artificial Intelligence Specialist Name Role Phone Jared Abrams MD Primary Care Provider [phone] Reason for Visit * Reason Comments Diarrhea Diarrhea off and on since since procedure in September. She goes about 5 to 6 times a day. Mesalamine does not seems to have made a difference. * Consultation/Treatment (Routine) - Closed Specialty Diagnoses / Procedures Referred By Angel braswell Referred To Contact GASTROENTEROLOGY Diagnoses FOLLOW UP Jared Abrams MD [facility] [place] [address] Phone: tel: fax: Vladimir Parsons MD [address] [address] Phone: tel: fax: Referral ID Status Reason Start Date Expiration Date Visits Re quested Visits Authorized [id number] Closed 07/07/2020 07/07/2022 100 100 Encounter Details Date Type Department Care Team (Latest Contact Info) Description 01/11/2022 1:00 PM CDT Office Visit [facility] [address] [phone] Vladimir Parsons MD [address] [address] Diarrhea (Diarrhea off and on since since procedure in September. She goes about 5 to 6 times a day. Mesalamine does not seems to have made a difference.) Social History Tobacco Use Types Packs/Day Years [...] suspected to have Coronavirus/COVID-19? No / Unsure 01/11/2022 1:01 PM CDT documented as of this encounter Last Filed Vital Signs Vital Sign Reading Time Taken Comments Blood Pressure 140/82 01/11/2022 1:09 PM CDT Pulse 71 01/11/2022 1:09 PM CDT Temperature 36.2 ??C (97.1 ??F) 01/11/2022 1:09 PM CD T Respiratory Rate - - Oxygen Saturation 94% 01/11/2022 1:09 PM CDT Inhaled Oxygen Concentration - - Weight 71.5 kg (157 lb 9.6 oz) 01/11/2022 1:09 P M CDT Height 157.5 cm (5' 2 ) 01/11/2022 1:09 PM CDT Body Mass Index 28.83 01/11/2022 1:09 PM CDT documented in this encounter Functional [...] Progress Notes * Vladimir Parsons MD - 01/11/2022 1:00 PM CDT Images from the original note were not included. Gastroenterology Established Visit Reason for Visit: Diarrhea (Diarrhea off and on since since procedure in September. She goes about 5 to 6 times a day. Mesalamine does not seems to have made a difference.) History of Present Illness: 76-year-old female with left-sided ulcerative colitis. She is doing better 1 we increased her mesalamine but now according to the granddaughter she still having diarrhea. Bowel movements 5 times a day. It is nonbloody. No significant abdominal pain. Medications: Current Outpatient Medications: ??? amLODIPine 5 [...] biopsies performed by Vladimir Parsons MD at [facility] OR ??? PARTIAL HIP REPLACEMENT Left ??? SIGMOIDOSCOPY N/A 10/05/2021 Sigmoidoscopy w/ Biopsy performed by Vladimir Parsons MD at [facility] OR ??? TUBAL LIGATION PE: Filed Vitals: 01/11/22 1309 BP: (!) 140/82 Pulse: 71 Temp: 97.1 ??F (36.2 ??C) TempSrc: Temporal SpO2: 94% Weight: 71.5 kg (157 lb 9.6 oz) Height: 5' 2 (1.575 m) General: In NAD, pleasant and appropriate HEENT: Anicteric Skin: Anicteric, no rashes Neuro: A&Ox3 Labs: Labs Reviewed @LAB@ Diagnoses/Impression: Ulcerative colitis with increased symptoms of diarrhea 5 times a day. This is in spite of taking full dose mesalamine. Recommendations and Plan: Continue mesalamine full dose. Consider adding Imuran 50 mg daily. Before I do that I will check TPMT level, hepatitis B and TB by QuantiFERON. We will have these tests on hand in case we need to switch over to Humira. Risks of medication especially immunosuppression, increased risk for infections,bone marrow suppression, discussed with patient. VLADIMIR PARSONS MD 01/12/2022 Voice recognition software utilized documented in this encounter Plan of Treatment Upcoming Encounters Date Type Department Care Team (Late st Contact Info) Description 08/03/2024 2:00 PM HOSPITAL CHIEF EXECUTIVE OFFICER Appointment [facility] [address] [place], [place] [id number] Josué Cook MD [address] [facility] [address] [place] [address] documented as of this encounter Goals Goal Patient Goal Type Associated Problems Recent Progress Patient-Stated? Author HOME TO [facility] Vannessa Light RN documented as of this encounter Results * QUANTIFERON-TB GOLD PLUS, 4T (01/17/2022 9:57 AM CDT) Pathologist [facility] NIL (TB) 0.02 01/22/2022 2:30 PM CDT [facility] MITOGEN NIL >10.00 01/22/2022 2:30 PM CDT [facility] TB1 AG MINUS NIL 0.01 01/22/2022 2:30 PM CDT [facility] TB2 AG MINUS NIL 0.01 01/22/2022 2:30 PM CDT [facility] 01/17/2022 9:57 AM CDT us Vladimir Parsons MD LABORATORY Final Result [facility] [address] [place] [address], [place] [phone] * HEPATITIS PANEL,ACUTE (01/17/2022 9:57 AM CDT) HEPATITIS B SURFACE AG NON-REACTI VE NON-REACTI VE 01/17/2022 3:46 PM CDT [facility] HEP B CORE IGM NON-REACTI VE NON-REACTI VE 01/17/2022 7:25 PM CDT [facility] HAV IGM NON-REACTI VE NON-REACTI VE 01/17/2022 4:06 PM CDT [facility] HEPATITIS C AB NON-REACTI VE NON-REACTI VE 01/17/2022 4:05 PM CDT [facility] 01/17/2022 9:57 AM CDT us Vladimir Parsons MD LABORATORY Final Result [facility] [address] [place] [id number], * TPMT ACTIVITY (01/17/2022 9:57 AM CDT) TPMT ACTIVITY 13 01/24/2022 12:46 AM CDT [employer] [facility] Comment: Units: ??nmol/hr/mL RBC Reference Range for TPMT Activity: ??>12 ? Normal 4-12 ? Heterozygote or low metabolizer ?? <4 ? Homozygote Deficient Range This test was developed and its analytical performance characteristics have been determined by [facility]. It has not been cleared or approved by FDA. This assay has been validated pursuant to the CLIA regulations and is used for clinical purposes. Test performed by [facility] ? [address], ? [place] [address] ? Laundry Bag Punch Operator: Lillian Duong MD,PHD,JOVANY Test Reported by Sierra Nelson [facility], [address] [place], [place] Gamal Gao M.D., Ph.D., Director of Laboratories , [place] [id number] 01/17/2022 9:57 AM CDT us Vladimir Parsons MD LABORATORY Final Result [facility] [address] [place] [address], documented in this encounter Visit Diagnoses Diagnosis UC (ulcerative colitis confined to rectum) ([facility])- Primary Ulcerative (chronic) proctitis Diarrhea, unspecified type documented in this encounter Additional Health Concerns Assessment Noted Time PHQ-9 Depression Total Score: 0 07/06/20 21 4:06 PM HOSPITAL CHIEF EXECUTIVE OFFICER documented as of this encounter Care Teams Artificial Intelligence Specialist Relationship Specialty Start Date End Date Jared Abrams MD PCP - General 08/28/11 07/16/22 documented as of this encounter
--- OUTSIDE RECORDS SUMMARY | 2024-07-12 19:34 | XMS_ITS | Encounter Summary ---
Author Organization [facility] Address [address] [place] [address] [place] [address] Care Team Providers Care Lift Driver Name Role Phone Jared Abrams MD Primary Care Provider [phone] Reason for Visit * Auth/Cert Specialty Diagnoses / Procedures Referred By Angel braswell Referred To Contact Diagnoses Ulcerative pancolitis without complication ([facility] HHS/HCC) Ulcerative colitis with complication, unspecified location ([facility]) Ulcerative pancolitis Procedures SIGMOIDOSCOPY,DIAGNOSTIC SIGMOIDOSCOPY Referral ID Status Reason Start Date Expiration Date Visits Re quested Visits Authorized [id number] 1 1 Encounter Details Date Type Department Care Team (Late st Contact Info) Description 10/05/2021 10:15 AM BISQUE CLEANER - 10/05/2021 10:36 AM BISQUE CLEANER Surgery [facility] [address] [place] [address] Indigo Parsons MD [address] [place] [id number] Sigmoidoscopy w/ Biopsy Surgery Details Date/Time Status Location OR Service Patient Class Case Class Case Type Trauma Case? 10/05/2021 10:15 AM Posted [facility] OR Endo Gastroenterology Short Stay/Outpa tient Surgery No Panel 1 Procedure LRB Anes Op Region Wound Class Comments Sigmoidoscopy w/ Biopsy N/A Local Clean Contaminated Surgeon Surgeon Role Service Panel Indigo Parsons MD Primary Gastroenterology 1 Special Needs 1000 documented in this encounter Social History Tobacco [...] Coronavirus/COVID-19? No / Unsure 10/05/2021 9:27 AM BISQUE CLEANER documented as of this encounter Last Filed Vital Signs Vital Sign Reading Time Taken Comments Blood Pressure 145/61 10/05/2021 9:49 AM BISQUE CLEANER Pulse 63 10/05/2021 9:49 AM BISQUE CLEANER Temperature 37.4 ??C (99.3 ??F) 10/05/2021 9:49 AM CS T Respiratory Rate 20 10/05/2021 9:49 AM BISQUE CLEANER Oxygen Saturation 97% 10/05/2021 9:49 AM BISQUE CLEANER Inhaled Oxygen Concentration - - Weight 72.6 kg (160 lb) 10/05/2021 9:49 AM BISQUE CLEANER Height 157.5 cm (5' 2 ) 10/05/2021 9:49 AM BISQUE CLEANER Body Mass Index 29.26 10/05/2021 9:49 AM BISQUE CLEANER documented in this encounter Functional Status * [...] RN Active documented in this encounter Discharge Instructions * Discharge Instructions* Ivett Moreno RN - 10/05/2021 11:52 AM BISQUE CLEANER Images from the original note were not included. Patient Education Ulcerative Colitis Discharge Instructions About this topic Ulcerative colitis is sometimes called UC. It is a type of inflammatory bowel disease or IBD. With this illness you have swelling and bleeding of the colon and rectum. It may also cause ulcers or sores in the lining of the colon and rectum. The swelling may cause belly pain, loose stools, and pus and bleeding in the stool. UC is a life-long condition and doctors do not know what causes it. The treatment works to lower swelling of the colon. It also tries to help with other signs and let the colon heal. Your doctor may order drugs or changes in your lifestyle. If these do not help to lower signs, your doctor may suggest surgery. What care is needed at home? ?? Ask your doctor what you need to do when you go home. Make sure you ask questions if you do not understand what the doctor says. This way you will know what you need to do. ?? Talk to your family and friends about your illness. Explain how they can help. Ask them to make healthy meals when you do not feel well enough to cook for yourself. ?? Keep a journal or notes of what you eat. Be aware of foods that may increase your signs and avoid them in the future. ?? Eat small meals more often. This may help lower stomach pain and cramping. ?? Drink 6 to 8 glasses of water each day. You are more likely to need extra fluids if you are having stools more often. ?? Learn how to manage stress caused by UC. Join support groups to get to know other people who have coped with UC. ?? Take your drugs as ordered by your doctor. Always take your drugs on time. ?? Avoid taking aspirin-containing drugs like Excedrin and nonsteroidal anti- inflammatory drugs (NSAIDs) like Advil and Aleve; these may worsen your signs. ?? Talk to your doctor or dietitian for a diet plan. This will help you manage the signs. What follow-up care is needed? ?? Your doctor may ask you to make visits to the office to check on your progress. Be sure to keep these visits. ?? You may need to have more tests like colonoscopy, CT scan, or MRI to check on your progress or look for colon cancer. What drugs may be needed? The doctor may order drugs to: ?? Help with pain and swelling ?? Calm the immune system ? this will help lower swelling of the colon ?? Manage loose stools ?? Fight an infection ?? Help build up your blood supply by taking extra iron Will physical activity be limited? Exercise may help improve your overall health. Ask your doctor about the right amount of activity for you. What changes to diet are needed? ?? There is no one best diet for people with UC. Talk to your doctor or dietitian for a personal diet plan. This can help manage your signs. ?? You should work toward eating a healthy, well-balanced diet. ?? Your doctor may suggest you eat a low fiber, low residue diet. This means avoiding things like raw fruits, vegetables, seeds, and nuts. ?? You may also want to avoid food that causes gas like broccoli, beans, nuts, and bran. ?? Eat foods that are low in fiber, like white bread, white rice, and cereals without whole grains. ?? Eat foods that are low in fat, like baked fish and lean meat. What problems could happen? ?? Need for surgery to remove part of the bowel ?? Problems with the bowel like very bad swelling, cancer, or bleeding ?? Infection ?? Dehydration ?? Problems with joints, eyes, or skin What can be done to prevent this health problem? There is no known way to cure or prevent UC. You can stay away from the foods that trigger the signs of your illness. When do I need to call the doctor? ?? Signs of infection. These include a fever of 100.4??F (38??C) or higher, chills. ?? Black, tarry, or bloody stools ?? Very upset stomach or throwing up ?? Throwing up blood ?? Very bad belly pain ?? Very bad dizziness ?? Joint pain or swelling ?? Back pain or pain in the sides, with or without blood in the urine ?? You are not feeling better in 2 to 3 days or you are feeling worse Teach Back: Helping You Understand The Teach Back Method helps you understand the information we are giving you. After you talk with the staff, tell them in your own words what you learned. This helps to make sure the staff has described each thing clearly. It also helps to explain things that may have been confusing. Before going home, make sure you can do these: ?? I can tell you about my condition. ?? I can tell you what changes I need to make with my diet or drugs. ?? I can tell you what I will do if I have very bad belly pain, upset stomach, throwing up, or bloody stools. Where can I learn more? [place] [employer] https://familydoctor.org/condition/wiwdwlvpbwcy-byzpf-pzxuxpk-ibd/ NHS Choices https://www.nhs.uk/conditions/ulcerative-colitis/ Last Reviewed Date 2021-05-01 Consumer Information Use and Disclaimer This generalized information is a limited summary of diagnosis, treatment, and/or medication information. It is not meant to be comprehensive and should be used as a tool to help the user understand and/or assess potential diagnostic and treatment options. It does NOT include all information about conditions, treatments, medications, side effects, or risks that may apply to a specific patient. Itis not intended to be medical advice or a substitute for the medical advice, diagnosis, or treatment of a health care provider based on the health care provider's examination and assessment of a patient???s specific and unique circumstances. Patients must speak with a health care provider for complete information about their health, medical questions, and treatment options, including any risks orbenefits regarding use of medications. This information does not endorse any treatments or medications as safe, effective, or approved for treating a specific patient. [employer], Inc. and its affiliates disclaim any warranty or liability relating to this information or the use thereof. The use of this information is governed by the Terms of Use, available at https://www.PacketFront.[employer]/en/solutions/lexicomp/about/alvaro Copyright Copyright ?? 2020 [employer]. and its affiliates and/or licensors. All rights reserved. UE CLEANER * Attachments The following attachments cannot be sent through Care Everywhere. * Flexible Sigmoidoscopy (Nigerian) documented in this encounter Medications at Time of Discharge amLODIPine 5 MG tablet Take 5 mg by mouth daily. aspirin EC 81 MG tablet Take 81 mg by mouth nightly. diphenoxylate-atro pine 2.5-0.025 MG tablet Take 1 [...] 10/05/2021 3 documented as of this encounter Progress Notes * Indigo Parsons MD - 10/05/2021 12:00 PM CST Your colon biopsies show moderate active colitis. See me in office * Riri Robles LPN - 10/05/2021 12:00 PM CST Pt aware and nataliia for ov scheduled. documented in this encounter H&P Notes * Idnigo Parsons MD - 10/05/2021 11:24 AM CST GASTROENTEROLOGY H&P 10/05/2021 11:24 AM Reason for Consult: Ulcerative colitis History of Present Illness: Radha Allen is a 76-year-old ulcerative colitis still having diarrhea nonbloody. Patient Active Problem List Diagnosis ??? Colitis ??? Ulcerative pancolitis without complication (CMS/HCC) Past Medical History: Diagnosis Date ??? Diabetes mellitus (CMS/HCC) ??? GERD (gastroesophageal reflux disease) ??? Hypercholesteremia ??? Hypertension ??? Ulcerative colitis (CMS/HCC) Past Surgical History: Procedure Laterality Date ??? COLONOSCOPY N/A 03/22/2020 colonoscopy with biopsies performed by Indigo Parsons MD at [facility] OR ??? PARTIAL HIP REPLACEMENT Left ??? TUBAL LIGATION Family History Problem Relation Name Age of Onset ??? Stroke Mother ??? Cancer Father ??? No Known Problems Sister ??? No Known Problems Brother ??? No Known Problems Maternal Aunt ??? No Known Problems Maternal Uncle ??? No Known Problems Paternal Aunt ??? No Known Problems Paternal Uncle ??? No Known Problems Maternal Grandmother ??? No Known Problems Maternal Grandfather ??? No Known Problems Paternal Grandmother ??? No Known Problems Paternal Grandfather Social History Socioeconomic History ??? Marital status: Spouse name: Not on file ??? Number of children: Not on file ??? Years of education: Not on file ??? Highest education level: Not on file Occupational History ??? Not on file Tobacco Use ??? Smoking status: Never Smoker ??? Smokeless tobacco: Never Used Vaping Use ??? Vaping Use: Never used Substance and Sexual Activity ??? Alcohol use: Never ??? Drug use: Never ??? Sexual activity: Not on file Other Topics Concern ??? Not on file Social History Narrative ??? Not on file Social Determinants of Health Financial Resource Strain: Not on file Food Insecurity: Not on file Transportation Needs: Not on file Physical Activity: Not on file Stress: Not on file Social Connections: Not on file Intimate Partner Violence: Not on file No Known Allergies PHYSICAL EXAM: Filed Vitals: 09/26/21 1127 10/05/21 0949 BP: (!) 145/61 Pulse: 63 Resp: 20 Temp: 99.3 ??F (37.4 ??C) TempSrc: Tympanic SpO2: 97% Weight: 72.6 kg (160 lb) 72.6 kg (160 lb) Height: 5' 2 (1.575 m) 5' 2 (1.575 m) Wt Readings from Last 3 Encounters: 10/05/21 72.6 kg (160 lb) 07/06/21 76.2 kg (168 lb) 05/11/21 72.6 kg (160 lb) Assessment and Plan: Ulcerative colitis. Nonbloody diarrhea. Plan, flexible sigmoidoscopy The procedural risks, benefits, alternatives were discussed fully with the patient, including the risks of complications of bleeding, infection, bowel injury or perforation, anesthesia related risks but not limited to the above. Post complication remedies could include hospitalization, antibiotics,surgery or even the remote possibility of . The patient verbalized understanding of the risks and wishes to proceed. Thank you for this consult. Please do not hesitate to contact us with further questions. INDIGO PARSONS MD Voice recognition software utilized UE CLEANER documented in this encounter OR Notes * Op Note - Indigo Parsons MD - 10/05/2021 11:38 AM CST [facility] OpNote Sigmoidoscopy w/ Biopsy Procedure Note Radha Allen 10/05/2021 1015 Procedure(s) (LRB): Sigmoidoscopy w/ Biopsy (N/A) Surgeon(s): Indigo Parsons MD Staff: Circulating Nurse 1: Irais Ocasio RN Scrub Person 1: Jody Francisco, ACQUISITION PROFESSIONAL Anesthesia: Local No anesthesia staff entered. Pre-Op Diagnosis: Ulcerative pancolitis Post-Op Diagnosis: Mild left-sided colitis biopsied. Procedure Description: Informed consent was obtained earlier. Patient was brought to the OR and placed in supine lateral decubitus position and sedated under MAC anesthesia. GIF 190 scope was lubricated inserted into the rectum and advanced to the distal transverse colon. There was evidence of left-sided colitis which was mild. Biopsies were taken down to the rectum. Scope withdrawn. Minimal bleeding. Findings: Mild left-sided colitis. Biopsies taken with minimal bleeding. Plan: Continue present medications. Complications: None Estimated Blood Loss: * No values recorded between 10/05/2021 12:00 AM and 10/05/2021 11:38 AM * Specimens: Order Name Source Comment Collection Info Order Time PATHOLOGY COLON Collected By: Indigo Parsons MD 10/05/2021 11:37 AM Release to patient System release Voice recognition software utilized. INDIGO PARSONS MD Date: 10/05/2021 Time: 11:38 AM Voice recognition software utilized. UE CLEANER documented in this encounter Plan of Treatment Upcoming Encounters Date Type Department Care Team (Late st Contact Info) Description 08/03/2024 2:00 PM BISQUE CLEANER Appointment [address] [address] Josué Cook MD [address] [address] documented as of this encounter Goals Goal Patient Goal Type Associated Problems Recent Progress Patient-Stated? Author HOME TO [facility] Vannessa Light RN documented as of this encounter Procedures Procedure Name Priority Date/Time Associated Diagnosis Comments SIGMOIDOSCOPY,FELICIANO GNOSTIC 10/05/2021 11:30 AM BISQUE CLEANER Ulcerative pancolitis without complication ([facility]/HCC) Ulcerative colitis with complication, unspecified location ([facility]) Special Needs 1000 PATHOLOGY Routine 10/05/2021 12:00 AM BISQUE CLEANER documented in this encounter Results * Pathology (10/05/2021 12:00 AM BISQUE CLEANER) PATHOLOGY [facility] ? Department of Laboratory Medicine ?[address] ?[place] [address] ? , extension [phone] ? Pathology Report ? Surgical Pathology Report Name: RADHA ALLEN ? Specimen #: [id number] Age: 8 1945 (Age: 76) ?Location: [facility] Sex: F ?Procedure Date: 10/05/2021 Hospital #: [id number] ?Date Received: 10/08/2021 Date Reported: 10/09/2021 Provider: INDIGO PARSONS MD Source: Colon, left, biopsies Clinical History: Ulcerative pancolitis. Gross Description: Received in formalin, labeled with a patient label and as left colon biopsy are five pieces of garcia tissue ranging from 0.1 to 0.3 cm. ??The specimen is entirely submitted in cassette 1. Gross examination (when applicable), interpretation and sign-out were performed at [facility], [address] [place], [place], [address]. FINAL DIAGNOSIS: COLON, LEFT, BIOPSIES: ? - MODERATELY ACTIVE CHRONIC COLITIS. ? - NO GRANULOMAS OR DYSPLASIA. Electronically Signed Out ? NICOLA DAVILA MD [facility] Tissue specimen (specimen) COLON STRUCTURE / Unknown 10/05/2021 11:36 AM BISQUE CLEANER us Indigo Parsons MD PATHOLOGY/CYTOLOGY ORDERABLES Fi nal Result [facility] [address] [place] [address], [id number] documented in this encounter Visit Diagnoses Diagnosis Ulcerative pancolitis without complication (CMS/HCC HHS/HCC) Ulcerative colitis with complication, unspecified location (CMS/HCC HHS/HCC) Colitis Other and unspecified noninfectious gastroenteritis and colitis Ulcerative pancolitis without complication (CMS/HCC HHS/HCC) Ulcerative colitis with complication, unspecified location (CMS/HCC HHS/HCC) documented in this encounter Admitting Diagnoses Diagnosis Ulcerative pancolitis without complication (CMS/HCC HHS/HCC) Colitis Other and unspecified noninfectious gastroenteritis and colitis documented in this encounter Additional Health Concerns Assessment Noted Time PHQ-9 Depression Total Score: 0 07/06/20 21 4:06 PM BISQUE CLEANER documented as of this encounter Care Teams Lift Driver Relationship Specialty Start Date End Date Jared Abrams MD PCP - General 08/28/11 07/16/22 documented as of this encounter
--- OUTSIDE RECORDS SUMMARY | 2024-07-12 19:34 | XMS_ITS | Encounter Summary ---
Author Organization [facility] Address [address] [place] [address] [place] [address] Care Team Providers Care Freight Router Name Role Phone Jared Abrams MD Primary Care Provider [phone] Reason for Visit * Reason Comments Ulcerative Colitis diarrhea * Consultation/Treatment (Routine) - Closed Specialty Diagnoses / Procedures Referred By Angel braswell Referred To Contact GASTROENTEROLOGY Diagnoses FU Procedures FOLLOW UP Jared Abrams MD [address] [place] [address] Phone: tel: fax: Vladimir Parsons MD [address] [address] Phone: tel: fax: Referral ID Status Reason Start Date Expiration Date Visits Re quested Visits Authorized [id number] Closed 11/16/2020 07/06/2022 100 100 Encounter Details Date Type Department Care Team (Latest Contact Info) Description 05/11/2021 2:40 PM CDT Office Visit [facility] [address] [phone] Vladimir Parsons MD [address] [address] Ulcerative Colitis (diarrhea ) Social History Tobacco Use Types Packs/Day [...] Sign Reading Time Taken Comments Blood Pressure - - Pulse - - Temperature - - Respiratory Rate 20 05/11/2021 2:34 PM CDT Oxygen Saturation - - Inhaled Oxygen Concentration - - Weight 72.6 kg (160 lb) 05/11/2021 2:34 PM CDT Height 154.9 cm (5' 1 ) 05/11/2021 2:34 PM CDT Body Mass Index 30.23 05/11/2021 2:34 PM CDT documented in this encounter Functional [...] Progress Notes * Vladimir Parsons MD - 05/11/2021 2:40 PM CDT Images from the original note were not included. Gastroenterology Established Visit Reason for Visit: Ulcerative Colitis (diarrhea ) History of Present Illness: Patient comes as a walk-in to the clinic because of increasing diarrhea symptoms and some abdominalpain. No blood. She is wondering if she can take some Imodium. She has ulcerative colitis and is currently on Lialda but recently has been having increased symptoms. Medications: Current Outpatient Medications: ??? amLODIPine 5 [...] times daily., Disp: , Rfl: ??? metroNIDAZOLE 500 MG tablet, Take 1 tablet (500 mg total) by mouth 3 (three) times daily for 7 days., Disp: 21 tablet, Rfl: 0 ??? pantoprazole EC 40 MG tablet, Take [...] biopsies performed by Vladimir Parsons MD at [facility] OR ??? PARTIAL HIP REPLACEMENT Left ??? TUBAL LIGATION PE: Filed Vitals: 05/11/21 1434 Resp: 20 Weight: 72.6 kg (160 lb) Height: 5' 1 (1.549 m) General: In NAD, pleasant and appropriate HEENT: Anicteric Skin: Anicteric, no rashes Neuro: A&Ox3 Labs: Labs Reviewed @LAB@ Diagnoses/Impression: Ulcerative colitis with recent increase of symptoms of diarrhea and some abdominal pain. I do not recommend Imodium. Instead we will treat her with Flagyl for 1 week. Recommendations and Plan: Flagyl 500 mg 3 times daily for 1 week. Continue same dose of Lialda 2.4 g daily but may need to increase the dosage if symptoms persist. VLADIMIR PARSONS MD 05/11/2021 Voice recognition software utilized documented in this encounter Plan of Treatment Upcoming Encounters Date Type Department Care Team (Late st Contact Info) Description 08/03/2024 2:00 PM MATTRESS PACKER Appointment [address] [address] Josué Cook MD [address] [address] documented as of this encounter Goals Goal Patient Goal Type Associated Problems Recent Progress Patient-Stated? Author [facility] General No Vannessa Blackwell, RN documented as of this encounter Visit Diagnoses Diagnosis Ulcerative colitis with complication, unspecified location (CMS/HCC [facility])- Primary documented in this encounter Care Teams Freight Router Relationship Specialty Start Date End Date Jared Abrams MD PCP - General 08/28/11 07/16/22 documented as of this encounter
--- OUTSIDE RECORDS SUMMARY | 2024-07-12 19:34 | XMS_ITS | Encounter Summary ---
Author Organization [facility] Address [address] [place] [address] [place] [address] Care Team Providers Care Knitting Machine Mechanic Name Role Phone Jared Abrams MD Primary Care Provider [phone] Reason for Visit * Reason Onset Date Comments Reschedule 09/20/2021 Encounter Details Date Type Department Care Team (Late st Contact Info) Description 09/20/2021 Telephone [facility] - [facility] [address] [facility], [address] [place] [id number] Vladimir Parsons MD [address] [facility] [address] [place] [address] Reschedule Social History Tobacco Use Types Packs/Day Years [...] encounter Progress Notes * Kimberley Pang - 09/21/2021 1:06 PM CST Spoke with patient procedure rescheduled to 10/05/2021. Hospital informed. REVIEWER * Laya Gaxiola - 09/20/2021 2:18 PM CST Pt called and stated that she contacted [facility] to cancel her colonoscopy with . Please give pt acall back to reschedule [phone] REVIEWER * Kiersten Lanier - 09/20/2021 7:42 AM CST Lisa called today needing to reschedule her surgery tomorrow because of her not feeling well please call to discuss REVIEWER documented in this encounter Plan of Treatment Upcoming Encounters Date Type Department Care Team (Late st Contact Info) Description 08/03/2024 2:00 PM LOAN REVIEWER Appointment [facility] [address] [place] [address] Josué Cook MD [address] [address] documented as of this encounter Goals Goal Patient Goal Type Associated Problems Recent Progress Patient-Stated? Author [facility] General No Vannessa Blackwell RN documented as of this encounter Visit Diagnoses Not on filedocumented in this encounter Additional Health Concerns Assessment Noted Time PHQ-9 Depression Total Score: 0 07/06/20 21 4:06 PM LOAN REVIEWER documented as of this encounter Care Teams Knitting Machine Mechanic Relationship Specialty Start Date End Date Jared Abrams MD PCP - General 08/28/11 07/16/22 documented as of this encounter
--- OUTSIDE RECORDS SUMMARY | 2024-07-12 19:34 | XMS_ITS | Encounter Summary ---
Author Organization [facility] Address [address] [facility] [place] [address] [place] [address] Care Team Providers Care Jalousie Installer Name Role Phone Jared Abrams MD Primary Care Provider [phone] Encounter Details Date Type Department Care Team (Latest Contact Info) Description 01/17/2022 9:48 AM CDT - 01/17/2022 11:59 PM CDT Hospital Encounter 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 50 mg daily and check CBC in a month * Riri Robles LPN - 01/17/2022 9:50 AM CDT Call x1 left [facility] for pt to call the office for test results * Riri Robles LPN - 01/17/2022 9:50 AM CDT PT AWARE OF TEST RESULTS, MEDICATION AND FUTURE TESTING documented in this encounter Plan of Treatment Upcoming Encounters Date Type Department Care Team (Late st Contact Info) Description 08/03/2024 2:00 PM SECURITY ATTENDANT Appointment [address] [address] Josué Cook MD [address] [facility] 8 [place] [address] documented as of this encounter Goals Goal Patient Goal Type Associated Problems Recent Progress Patient-Stated? Author HOME TO [facility]DEPENDENT [facility]IV[facility] General Vannessa Light RN documented as of this encounter Procedures Procedure Name Priority Date/Time Associated Diagnosis Comments QUANTIFERON-TB GOLD PLUS, 4T Routine 01/17/2022 9:57 AM CDT UC (ulcerative colitis confined to rectum) (CMS/HCC HHS/HCC) Diarrhea, unspecified type TPMT ACTIVITY Routine 01/17/2022 9:57 AM CDT UC (ulcerative colitis confined to rectum) (CMS/HCC HHS/HCC) Diarrhea, unspecified type HEPATITIS PANEL,ACUTE Routine 01/17/2022 9:57 AM CDT UC (ulcerative colitis confined to rectum) (CMS/HCC HHS/HCC) Diarrhea, unspecified type documented in this encounter Results * QUANTIFERON-TB GOLD PLUS, 4T (01/17/2022 9:57 AM CDT) NIL (TB) 0.02 01/22/2022 2:30 PM CDT [facility] MITOGEN NIL >10.00 01/22/2022 2:30 PM CDT [facility] TB1 AG MINUS NIL 0.01 01/22/2022 2:30 PM CDT [facility] TB2 AG MINUS NIL 0.01 01/22/2022 2:30 PM CDT [facility] 01/17/2022 9:57 AM CDT Vladimir Parsons MD LABORATORY Final Result [facility] [address] [place] [address], * HEPATITIS PANEL,ACUTE (01/17/2022 9:57 AM CDT) HEPATITIS B SURFACE AG NON-REACTI VE NON-REACTI VE 01/17/2022 3:46 PM CDT [facility] HEP B CORE IGM NON-REACTI VE NON-REACTI VE 01/17/2022 7:25 PM CDT [facility] HAV IGM NON-REACTI VE NON-REACTI VE 01/17/2022 4:06 PM CDT [facility] HEPATITIS C AB NON-REACTI VE NON-REACTI VE 01/17/2022 4:05 PM CDT [facility] 01/17/2022 9:57 AM CDT Vladimir Parsons MD LABORATORY Final Result [facility] [address] [place] [address], * TPMT ACTIVITY (01/17/2022 9:57 AM CDT) TPMT ACTIVITY 13 01/24/2022 12:46 AM CDT [facility] Comment: Units: ??nmol/hr/mL RBC Reference Range for TPMT Activity: ??>12 ? Normal 4-12 ? Heterozygote or low metabolizer ?? <4 ? Homozygote Deficient Range This test was developed and its analytical performance characteristics have been determined by [employer] [facility]. It has not been cleared or approved by FDA. This assay has been validated pursuant to the CLIA regulations and is used for clinical purposes. Test performed by [employer] [facility] ? [address] [facility], ? [place] [address] ? Precipitator Operator: Lillian Duong MD,PHD,JOVANY Test Reported by Sierra Nelson, Vitrina [place], [address] [place], [place] Gamal Gao M.D., Ph.D., Director of Laboratories , [place] [id number] 01/17/2022 9:57 AM CDT us Vladimir Parsons MD LABORATORY Final Result Performing Organization Address City/State/[facility] Co de Phone Number [facility] [address] [place] [address], [place] [phone] documented in this encounter Visit Diagnoses Diagnosis UC (ulcerative colitis confined to rectum) ([facility]) Ulcerative (chronic) proctitis Diarrhea, unspecified type documented in this encounter Additional Health Concerns Assessment Noted Time PHQ-9 Depression Total Score: 0 07/06/20 21 4:06 PM SECURITY ATTENDANT documented as of this encounter Care Teams Jalousie Installer Relationship Specialty Start Date End Date Jared Abrams MD PCP - General 08/28/11 07/16/22 documented as of this encounter
--- OUTSIDE RECORDS SUMMARY | 2024-07-12 19:34 | XMS_ITS | Encounter Summary ---
Author Organization [facility] Address [address] [place] [address] [place] [address] Care Team Providers Care Manager Managed Care Name Role Phone Jared Abrams MD Primary Care Provider [phone] Encounter Details Date Type Department Care Team (Latest Contact Info) Description 04/07/2020 Travel Social History Tobacco Use Types Packs/Day [...] Date Type Department Care Team (Late st [facility]) Description 08/03/2024 2:00 PM MEAT PUMPER Appointment [facility] [id number] [place] [address] Josué Cook MD [address] [address] documented as of this encounter Goals Goal Patient Goal Type Associated Problems Recent Progress Patient-Stated? Author [facility]IV[facility] General No Vannessa Blackwell RN documented as of this encounter Visit Diagnoses Not on filedocumented in this encounter Care Teams Manager Managed Care Relationship Specialty Start Date End Date Jared Abrams MD PCP - General 08/28/11 07/16/22 documented as of this encounter
--- OUTSIDE RECORDS SUMMARY | 2024-07-12 19:34 | XMS_ITS | Encounter Summary ---
Author Organization [facility] Address [address] [facility] [place] [address] [place] [address] Care Team Providers Care Road Supervisor Name Role Phone Jared Abrams MD Primary Care Provider [phone] Reason for Visit * Reason Onset Date Comments Medication 10/12/2021 Encounter Details Date Type Department Care Team (Late st Contact Info) Description 10/12/2021 Telephone [facility] Medical Group Multispecialty Care - [facility] [address] [facility], [address] [place] [phone] Corrina Muniz NP [address] [facility]. [address] [place], [place] [id number] Medication Social History Tobacco Use Types Packs/Day [...] Coronavirus/COVID-19? No / Unsure 10/05/2021 9:27 AM TERADATA SOLUTION ARCHITECT documented as of this encounter Functional Status [...] documented in this encounter Progress Notes * Riri Robles LPN - 10/12/2021 4:17 PM CDT Spoke with pt and informed her that Dr Parsons ordered these for the yr. She said when she called the pharmacy her script was already waiting for her. * Corrina Muniz NP - 10/12/2021 1:35 PM CDT Mesalamine BID was ordered by Dr. Parsons on 10/05/2021 for an entire year. Riri Robles will contact pt. documented in this encounter Plan of Treatment Upcoming Encounters Date Type Department Care Team (Late st Contact Info) Description 08/03/2024 2:00 PM TERADATA SOLUTION ARCHITECT Appointment [facility] Day [facility] [address] [place] [address] Josué Cook MD [address] [address] documented as of this encounter Goals Goal Patient Goal Type Associated Problems Recent Progress Patient-Stated? Author [facility]IV[facility] General No Vannessa Blackwell RN documented as of this encounter Visit Diagnoses Not on filedocumented in this encounter Additional Health Concerns Assessment Noted Time PHQ-9 Depression Total Score: 0 07/06/20 21 4:06 PM TERADATA SOLUTION ARCHITECT documented as of this encounter Care Teams Road Supervisor Relationship Specialty Start Date End Date Jared Abrams MD PCP - General 08/28/11 07/16/22 documented as of this encounter
--- OUTSIDE RECORDS SUMMARY | 2024-07-12 19:34 | XMS_ITS | Encounter Summary ---
Author Organization [facility] Address [address] [place] [address] [place] [address] Care Team Providers Care Tradeshow Worker Name Role Phone Jared Abrams MD Primary Care Provider [phone] Encounter Details Date Type Department Care Team (Late st Contact Info) Description 09/04/2021 Orders Only [facility] Medical Group Multispecialty Care - [address] [place] [phone] Vladimir Parsons MD [address] [facility] [address] [place] [address] Social History Tobacco Use Types Packs/Day Years [...] Gallagher RN Active documented in this encounter Progress Notes * Kimberley Pang - 09/04/2021 10:04 AM CST Spoke with patient procedure scheduled for 09/21/2021 at [facility]. Flex sig instructions mailed to pt. WRITER ASSEMBLY AND PARTS INSPECTOR documented in this encounter Plan of Treatment Upcoming Encounters Date Type Department Care Team (Late st Contact Info) Description 08/03/2024 2:00 PM TYPEWRITER ASSEMBLY AND PARTS INSPECTOR Appointment [facility] Day [facility] [address] [place], [place] [phone] Josué Cook MD [address] [facility] 8 [place] [address] documented as of this encounter Goals Goal Patient Goal Type Associated Problems Recent Progress Patient-Stated? Author HOME TO [facility] LIV[facility] General No Vannessa Blackwell RN documented as of this encounter Visit Diagnoses Not on filedocumented in this encounter Additional Health Concerns Assessment Noted Time PHQ-9 Depression Total Score: 0 07/06/20 21 4:06 PM TYPEWRITER ASSEMBLY AND PARTS INSPECTOR documented as of this encounter Care Teams Tradeshow Worker Relationship Specialty Start Date End Date Jared Abrams MD PCP - General 08/28/11 07/16/22 documented as of this encounter
--- OUTSIDE RECORDS SUMMARY | 2024-07-12 19:34 | XMS_ITS | Encounter Summary ---
Author Organization [facility] Address [address] [place] [place] [address] [place] [address] Care Team Providers Care Sign Board Erector Name Role Phone Jared Abrams MD Primary Care Provider [phone] Encounter Details Date Type Department Care Team (Latest Contact Info) Description 01/11/2022 Travel Social History Tobacco Use Types Packs/Day [...] st Contact Info) Description 08/03/2024 2:00 PM SOLDER TECHNICIAN Appointment [address] [address] Josué Cook MD [address] [address] documented as of this encounter Goals Goal Patient Goal Type Associated Problems Recent Progress Patient-Stated? Author [facility]IV[facility] General No Vannessa Blackwell RN documented as of this encounter Visit Diagnoses Not on filedocumented in this encounter Additional Health Concerns Assessment Noted Time PHQ-9 Depression Total Score: 0 07/06/20 21 4:06 PM SOLDER TECHNICIAN documented as of this encounter Care Teams Sign Board Erector Relationship Specialty Start Date End Date Jared Abrams MD PCP - General 08/28/11 07/16/22 documented as of this encounter
--- OUTSIDE RECORDS SUMMARY | 2024-07-12 19:34 | XMS_ITS | Encounter Summary ---
Author Organization [facility] Address [address] [facility] [place] [address] [place] [address] Care Team Providers Care Talent Acquisition Relationship Manager Name Role Phone Jared Abrams MD Primary Care Provider Encounter Details Date Type Department Care Team (Latest Contact Info) Description 03/30/2020 Travel Social History Tobacco Use Types Packs/Day [...] Date Type Department Care Team (Late st [facility]) Description 08/03/2024 2:00 PM EQUIPMENT VALIDATION SPECIALIST Appointment [facility] [id number] [place] [address] Josué Cook MD [address] [address] documented as of this encounter Goals Goal Patient Goal Type Associated Problems Recent Progress Patient-Stated? Author [facility]IV[facility] General No Vannessa Blackwell RN documented as of this encounter Visit Diagnoses Not on filedocumented in this encounter Care Teams Talent Acquisition Relationship Manager Relationship Specialty Start Date End Date Jared Abrams MD PCP - General 08/28/11 07/16/22 documented as of this encounter
--- OUTSIDE RECORDS SUMMARY | 2024-07-12 19:34 | XMS_ITS | Encounter Summary ---
Author Organization [facility] Address [address] [facility] [place] [address] [place] [address] Care Team Providers Care Club Waiter/Waitress Name Role Phone Jared Abrams MD Primary Care Provider [phone] Encounter Details Date Type Department Care Team (Latest Contact Info) Description 07/07/2020 Travel Social History Tobacco Use Types Packs/Day [...] COVID-19? No / Unsure 07/07/2020 3:04 PM DISHWASHER BUSSER documented as of this encounter Functional Status [...] Date Type Department Care Team (Late st [facility]) Description 08/03/2024 2:00 PM DISHWASHER BUSSER Appointment [facility] [id number] [place] [address] Josué Cook MD [address] [address] documented as of this encounter Goals Goal Patient Goal Type Associated Problems Recent Progress Patient-Stated? Author [facility]IV[facility] General No Vannessa Blackwell RN documented as of this encounter Visit Diagnoses Not on filedocumented in this encounter Care Teams Club Waiter/Waitress Relationship Specialty Start Date End Date Jared Abrams MD PCP - General 08/28/11 07/16/22 documented as of this encounter
--- OUTSIDE RECORDS SUMMARY | 2024-07-12 19:34 | XMS_ITS | Encounter Summary ---
Author Organization [facility] Address [address] [facility] [place] [address] [place] [address] Care Team Providers Care Switchbox Assembler Name Role Phone Jared Abrams MD Primary Care Provider [phone] Reason for Visit * Reason Onset Date Comments Reschedule 07/12/2021 Encounter Details Date Type Department Care Team (Late st Contact Info) Description 07/12/2021 Telephone [facility] Medical Group Multispecialty Care - [facility] [address] [facility] [place] [phone] Vladimir Parsons MD [address] [facility] [address] [place] [address] Reschedule Social History Tobacco Use Types Packs/Day [...] COVID-19? No / Unsure 07/06/2021 2:18 PM FRONT FACER documented as of this encounter Functional Status [...] encounter Progress Notes * Kimberley Pang - 07/12/2021 2:01 PM CST LVM for pt to give the office a call to reschedule procedure. T FACER * Kimberley Pang - 07/12/2021 2:01 PM CST ----- Message from Ivett Moreno RN sent at 07/12/2021 9:59 AM FRONT FACER ----- ----- Message from Ivett Moreno RN sent at 07/12/2021 9:58 AM FRONT FACER ----- Patient needs to be rescheduled. She fell at home and has a sore coccyx. T FACER documented in this encounter Plan of Treatment Upcoming Encounters Date Type Department Care Team (Late st Contact Info) Description 08/03/2024 2:00 PM FRONT FACER Appointment [facility] Day [facility] [address] [place] [address] Josué Cook MD [address] [facility] 8 [place] [address] documented as of this encounter Goals Goal Patient Goal Type Associated Problems Recent Progress Patient-Stated? Author HOME TO [facility]DEP[facility]ENT LIV[facility] General Vannessa Light RN documented as of this encounter Visit Diagnoses Not on filedocumented in this encounter Additional Health Concerns Assessment Noted Time PHQ-9 Depression Total Score: 0 07/06/20 21 4:06 PM FRONT FACER documented as of this encounter Care Teams Switchbox Assembler Relationship Specialty Start Date End Date Jared Abrams MD PCP - General 08/28/11 07/16/22 documented as of this encounter
--- OUTSIDE RECORDS SUMMARY | 2024-07-12 19:34 | XMS_ITS | Encounter Summary ---
Author Organization [facility] Address [address] [facility] [place] [address] [place] [address] Care Team Providers Care Steel Erector Apprentice Name Role Phone Jared Abrams MD Primary Care Provider Reason for Visit * Auth/Cert Specialty Diagnoses / Procedures Referred By Angel braswell Referred To Contact Diagnoses Colitis JENNY (acute kidney injury) ([facility]) Colitis Referral ID Status Reason Start Date Expiration Date Visits Re quested Visits Authorized [id number] 1 1 Encounter Details Date Type Department Care Team (Late st Contact Info) Description 03/22/2020 10:07 AM CDT Anesthesia Event [facility] [address] [place] [address] Rochelle García CRNA 2022 [place] [address] Anesthesia Record Procedure Summary Procedure Name Responsible Anesthesiologist Anesthesia Start Time Anesthesia Stop Time colonoscopy with biopsies Rochelle García CRNA 03/22/20 1007 03/22/20 1026 Events Date Time Event Comment 03/22/2020 0931 0932 AN PARTS EXPEDITER Prepped 1007 An Start Patient ID and consent checked and patient reassessed. 1007 An Start Data 1008 Nasal Cannula Applied 1008 Anesthesia Ready 1026 Nasal Cannula Removed 1026 an stop data 1026 An Stop 1026 Post Anesthetic Care Handoff I completed my handoff to the receiving nurse during which we: 1. Identified the patient 2. Identified the responsible provider 3. Reviewed the pertinent medical history 4. Discussed the surgical course 5. Reviewed intra-op anesthesia management and issues during anesthesia 6. Set expectations for post-procedure period 7. Allowed opportunity for questions and acknowledgement of understanding. Meds Name Total lidocaine (PF) (XYLOCAINE) 1% injection 50 mg propofol (DIPRIVAN) 200 mg/20 mL injecti on 100 mg * Agents Name O2 N2O * Blood No blood administrations on file. Lines, Drains, and Airways Type Details Placement Removal Peripheral IV Placement Date: 02/26 10/14; Placement Time: 2044; Placed Outside of This Facility?: No; Size: 18 G; Orientation: Right; Location: Antecubital; Site Prep: Chlorhexidine; Insertion attempts: 1; Patient Tolerance: Tolerated well; Removal Date: 03/23/20; Removal Time: 131903/19/202044 by Lyla Bal RN 03/23/201319 by Tiera Trivedi, Nurse Student documented in this encounter Social History Tobacco [...] as of this encounter Functional Status * Question Answer [...] Answer Date of Assessment Author Status No 03/20/2020 12:34 AM CDT Acti ve * RETIRED Are you blind or do you have serious difficulty seeing, even when wearing glasses? Answer Date of Assessment Author Status No 03/20/2020 12:34 AM CDT Acti ve * Do you have serious difficulty walking or climbing stairs? Answer Date of Assessment Author Status Yes 03/20/2020 12:34 AM CDT Shu Tan R N Active * Do you have difficulty dressing or bathing? Answer Date of Assessment Author Status No 03/20/2020 12:34 AM CDT Shu Tan R N Active * Because of a physical, mental, or emotional condition, do you have difficulty doing errands alone such as visiting a doctor's office or shopping? Answer Date of Assessment Author Status No 03/20/2020 12:34 AM CDT Shu Tan R N Active documented as of this encounter Mental [...] decisions? Answer Entry Date Author Status No 03/20/2020 12:34 AM CDT Shu Tan R N Active documented in this encounter OR Notes * Anesthesia Postprocedure Evaluation - Rochelle García CRNA - 03/22/2020 10:26 AM CDT Anesthesia Post-op Note Lisa Allen Procedure(s): colonoscopy with biopsies (N/A ) Anesthesia type: MAC Vitals: 03/22/[address] BP: 140/60 Vitals: 03/22/20729 Pulse: 91 Vitals: 03/22/20729 Resp: 20 Vitals: 03/22/20729 Temp: 37.1 ??C Vitals: 03/22/20729 SpO2: 100% Patient Location: Phase II/Outpatient Level of Consciousness: awake, oriented and alert Pain Management: adequate analgesia Airway Patency: patent Respiratory Status: acceptable Cardiovascular Status: acceptable Post-Op Nausea: none Postoperative Hydration: euvolemic Complications: no anesthesia complication * Anesthesia Preprocedure Evaluation - Rochelle García CRNA - 03/22/2020 9:26 AM CDT Anesthesia ROS/MED History Reviewed: Patient summary , Nursing notes , Family history anesthesia, Anesthesia history , Medications Pre-Anesthetic State: alert, awake and responds appropriately Pulmonary Cardiovascular (+) hypertension, hyperlipidemia Neuro/Psych GI/Hepatic/Renal (+) GERD Endo/Other (+) diabetes mellitus, obese Physical Evaluation Airway Mallampati: III TM Distance: >3 FB Neck ROM: normal Dental No notable dental history Pulmonary Breath sounds clear to auscultation Cardiovascular Rhythm: regular Rate: normal Anesthesia Plan ASA 3 Intravenous Induction Anesthesia type: MAC Informed Consent Anesthetic plan and risks discussed with patient of whom consent was obtained. Use of blood products discussed with patient of whom consent was obtained. . Cosigned by Vladimir Parsons MD at 03/31/2020 9:30 AM CDT Associated attestation - Vladimir Parsons MD - 03/31/2020 9:30 AM CDT I am certifying my agreement with the anesthesia plan of care and will be supervising the administration of anesthesia. documented in this encounter Plan of Treatment Upcoming Encounters Date Type Department Care Team (Late st Contact Info) Description 08/03/2024 2:00 PM DIE WELDER Appointment [address] [address] Josué Cook MD [address] [facility] 8 [place] [address] documented as of this encounter Goals Goal Patient Goal Type Associated Problems Recent Progress Patient-Stated? Author HOME TO [facility]IV[facility] General No Vannessa Blackwell RN documented as of this encounter Visit Diagnoses Not on filedocumented in this encounter Administered Medications Inactive Administered Medications - up to 3 most recent administrations Medication Order MAR Action Action Date Dose Rate Site lidocaine (PF) (XYLOCAINE) 1 % injection Intravenous, PRN, Starting on Fri03/22/20 at 1007, Until Fri03/22/20 at 1026, Anesthesia Intra-Op Given 03/22/2020 10:07 AM CDT 50 mg propofol (DIPRIVAN) IV bolus Intravenous, PRN, Starting on Fri03/22/20 at 1012, Until Fri03/22/20 at 1026, Anesthesia Intra-Op Given 03/22/2020 10:17 AM CDT 50 mg Given 03/22/2020 10:12 AM CDT 50 mg documented in this encounter Care Teams Steel Erector Apprentice Relationship Specialty Start Date End Date Jared Abrams MD PCP - General 08/28/11 07/16/22 documented as of this encounter
--- OUTSIDE RECORDS SUMMARY | 2024-07-12 19:34 | XMS_ITS | Encounter Summary ---
Author Organization [facility] Address [address] [place] [address] [place] [address] Care Team Providers Care Men'S Golf Coach Name Role Phone Jared Abrams MD Primary Care Provider [phone] Reason for Visit * Reason Onset Date Comments Called To Cancel Office Appt. 07/12/2021 Encounter Details Date Type Department Care Team (Late st Contact Info) Description 07/12/2021 Telephone [facility] Multispecialty Care - [facility] [address] [facility], [address] [place] [phone] Vladimir Parsons MD 3 [facility] [address] [place], [place] [id number] Called To Cancel Office Appt. Social History Tobacco Use Types Packs/Day Years [...] COVID-19? No / Unsure 07/06/2021 2:18 PM ASSISTANT OFFSET PRESS OPERATOR documented as of this encounter Functional Status [...] in this encounter Progress Notes * Rhonda Hopkins - 07/12/2021 10:06 AM CST Pt called and stated that she needs to cancel her upcoming colonoscopy due to an injury. Pt will call to reschedule when she is ready and able. No follow up needed at this time. STANT OFFSET PRESS OPERATOR documented in this encounter Plan of Treatment Upcoming Encounters Date Type Department Care Team (Late st Contact Info) Description 08/03/2024 2:00 PM ASSISTANT OFFSET PRESS OPERATOR Appointment [facility] [address] [place] [address] Josué Cook MD [address] [facility] 8 [place] [address] documented as of this encounter Goals Goal Patient Goal Type Associated Problems Recent Progress Patient-Stated? Author HOME TO [facility] No Vannessa Blackwell RN documented as of this encounter Visit Diagnoses Not on filedocumented in this encounter Additional Health Concerns Assessment Noted Time PHQ-9 Depression Total Score: 0 07/06/20 21 4:06 PM ASSISTANT OFFSET PRESS OPERATOR documented as of this encounter Care Teams Men'S Golf Coach Relationship Specialty Start Date End Date Jared Abrams MD PCP - General 08/28/11 07/16/22 documented as of this encounter
--- OUTSIDE RECORDS SUMMARY | 2024-07-12 19:34 | XMS_ITS | Encounter Summary ---
Author Organization [facility] Address [address] [facility] [place] [address] [place] [address] Care Team Providers Care Photographic Editor Name Role Phone Jared Abrams MD Primary Care Provider [phone] Reason for Visit * Auth/Cert Specialty Diagnoses / Procedures Referred By Angel braswell Referred To Contact Diagnoses Ulcerative pancolitis without complication ([facility] HHS/HCC) Ulcerative colitis with complication, unspecified location ([facility]) Ulcerative pancolitis Procedures SIGMOIDOSCOPY,DIAGNOSTIC SIGMOIDOSCOPY Referral ID Status Reason Start Date Expiration Date Visits Re quested Visits Authorized [id number] 1 1 Encounter Details Date Type Department Care Team (Latest Contact Info) Description 10/05/2021 9:20 AM CHIROPRACTIC TEACHER - 10/05/2021 12:00 PM [facility] Hospital Encounter [facility] [address] [place] [address] Indigo Parsons MD [address] [facility] [address] [address] Discharge Disposition: Home or Self Care (Routine [...] Coronavirus/COVID-19? No / Unsure 10/05/2021 9:27 AM CHIROPRACTIC TEACHER documented as of this encounter Last Filed Vital Signs Vital Sign Reading Time Taken Comments Blood Pressure 148/59 10/05/2021 11:40 AM CHIROPRACTIC TEACHER Pulse 72 10/05/2021 11:40 AM CHIROPRACTIC TEACHER Temperature 37.1 ??C (98.7 ??F) 10/05/2021 11:[address] Respiratory Rate 16 10/05/2021 11:40 AM CHIROPRACTIC TEACHER Oxygen Saturation 98% 10/05/2021 11:40 AM CHIROPRACTIC TEACHER Inhaled Oxygen Concentration - - Weight 72.6 kg (160 lb) 10/05/2021 9:49 AM CHIROPRACTIC TEACHER Height 157.5 cm (5' 2 ) 10/05/2021 9:49 AM CHIROPRACTIC TEACHER Body Mass Index 29.26 10/05/2021 9:49 AM CHIROPRACTIC TEACHER documented in this encounter Functional Status * RETIRED Are you deaf or do you have serious difficulty hearing Answer Date of Assessment Author Status No 03/23/2020 1:13 PM CDT Activ e * RETIRED Are you blind or do you have serious difficulty seeing, even when wearing glasses? Answer Date of Assessment Author Status No 03/23/2020 1:13 PM CDT Acti ve * Do you have [...] Ivett Moreno RN - 10/05/2021 11:52 AM CHIROPRACTIC TEACHER Images from the original note were not [...] bloody stools. Where can I learn more? [employer] https://familydoctor.org/condition/kopibfpaqzmm-tkrus-vysaafl-ibd/ NHS Choices https://www.nhs.uk/conditions/ulcerative-colitis/ Last Reviewed Date 2021-05-01 [...] or approved for treating a specific patient. [employer] and its affiliates disclaim any warranty or liability relating to this information or the use thereof. The use of this information is governed by the Terms of Use, available at https://www.Streetcar.Starbak/en/solutions/lexicomp/about/alvaro Copyright Copyright ?? 2020 [employer], Inc. and its affiliates and/or licensors. All rights reserved. OPRACTIC TEACHER * Attachments The following attachments cannot be sent through Care Everywhere. * Flexible Sigmoidoscopy (Hungarian) documented in this encounter Medications at Time [...] documented in this encounter H&P Notes * Indigo Parsons MD - 10/05/2021 11:24 AM CST [...] biopsies performed by Indigo Parsons MD at [facility] OR ??? PARTIAL HIP REPLACEMENT Left ??? [...] INDIGO PARSONS MD Voice recognition software utilized OPRACTIC TEACHER documented in this encounter OR Notes * Op Note - Indigo Parsons MD - 10/05/2021 11:38 AM CST [facility] OpNote Sigmoidoscopy w/ Biopsy Procedure Note Radhafatoumata Tolbert Alejandro 10/05/2021 1015 Procedure(s) (LRB): Sigmoidoscopy w/ Biopsy (N/A) Surgeon(s): Indigo Parsons MD Staff: Circulating Nurse 1: Irais Ocasio RN Scrub Person 1: Jody Francisco, POST ACUTE CARE NURSE PRACTITIONER Anesthesia: Local No anesthesia staff entered. Pre-Op [...] Time: 11:38 AM Voice recognition software utilized. OPRACTIC TEACHER documented in this encounter Plan of Treatment Upcoming Encounters Date Type Department Care Team (Late st Contact Info) Description 08/03/2024 2:00 PM CHIROPRACTIC TEACHER Appointment [facility] One Day [facility] [address] [place] [address] Josué Cook MD [address] [facility] 8 [place] [address] documented as of this encounter Goals Goal Patient Goal Type Associated Problems Recent Progress Patient-Stated? Author HOME TO [facility] Vannessa Light RN documented as of this encounter Procedures Procedure Name Priority Date/Time Associated Diagnosis Comments SIGMOIDOSCOPY,FELICIANO GNOSTIC 10/05/2021 11:30 AM CHIROPRACTIC TEACHER Ulcerative pancolitis without complication (CMS/HCC HHS/HCC) Ulcerative colitis with complication, unspecified location (CMS/HCC HHS/HCC) Special Needs 1000 PATHOLOGY Routine 10/05/2021 12:00 AM CHIROPRACTIC TEACHER documented in this encounter Results * Pathology (10/05/2021 12:00 AM CHIROPRACTIC TEACHER) PATHOLOGY [facility] ? Department of Laboratory Medicine ?[address] ?[place] [address] ? , extension [phone] ? Pathology Report ? Surgical Pathology Report Name: RADHA ALLEN ? Specimen #: [id number] Age: 8 1945 (Age: 76) ?Location: [facility] Sex: F ?Procedure Date: 10/05/2021 Hospital #: [id number] ?Date Received: 10/08/2021 Date Reported: 10/09/2021 Provider: INDIGO PARSONS MD Source: Colon, left, biopsies Clinical History: Ulcerative pancolitis. Gross Description: Received in formalin, labeled with a patient label and as left colon biopsy are five pieces of garcia tissue ranging from 0.1 to 0.3 cm. ??The specimen is entirely submitted in cassette 1. Gross examination (when applicable), interpretation and sign-out were performed at [facility], [address] [place] [address], [place], [place], [address]. FINAL DIAGNOSIS: COLON, LEFT, BIOPSIES: ? - MODERATELY ACTIVE CHRONIC COLITIS. ? - NO GRANULOMAS OR DYSPLASIA. Electronically Signed Out ? NICOLA DAVILA MD [facility] Tissue specimen (specimen) COLON STRUCTURE / Unknown 10/05/2021 11:36 AM CHIROPRACTIC TEACHER us Indigo Parsons MD PATHOLOGY/CYTOLOGY ORDERABLES Fi nal Result [facility] [address] [place] [address], [place] [phone] [id number] documented in this encounter Visit Diagnoses Diagnosis Ulcerative pancolitis without complication ([facility] HHS/HCC) Ulcerative colitis with complication, unspecified location ([facility]) Colitis Other and unspecified noninfectious gastroenteritis and colitis documented in this encounter Admitting Diagnoses Diagnosis Ulcerative pancolitis without complication ([facility]) Colitis Other and unspecified noninfectious gastroenteritis and colitis documented in this encounter Additional Health Concerns Assessment Noted Time PHQ-9 Depression Total Score: 0 07/06/20 21 4:06 PM CHIROPRACTIC TEACHER documented as of this encounter Care Teams Photographic Editor Relationship Specialty Start Date End Date Jared Abrams MD PCP - General 08/28/11 07/16/22 documented as of this encounter
--- OUTSIDE RECORDS SUMMARY | 2024-07-12 19:34 | XMS_ITS | Encounter Summary ---
Author Organization [facility] Address [address] [place] [address] [place] [address] Care Team Providers Care Dope Heater Name Role Phone Jared Abrams MD Primary Care Provider [phone] Reason for Visit * Reason Onset Date Comments Diarrhea 01/04/2022 Appointment Request 01/04/2022 Encounter Details Date Type Department Care Team (Late st Contact Info) Description 01/04/2022 Telephone [facility] Medical Group Multispecialty Care - [facility] [address] [facility], [address] [place] [address] Vladimir Parsons MD 3 [facility] [address] [place] [address] Diarrhea; Appointment Request Social History Tobacco Use Types [...] encounter Progress Notes * Kimberley Pang - 04/04/2022 2:30 PM CDT Spoke with patient cathleen geller. * Samantha Ignacio - 04/04/2022 11:38 AM CDT Patient called today saying the medication she was put on has not helped he diarrhea. Please call to discuss. * Corrina Muniz NP - 01/04/2022 4:33 PM CDT Yes please add pt onto schedule with Dr. Parsons on the pt has UC. Thanks * Kimberley Pang - 01/04/2022 4:02 PM CDT Please advise should patient be added on next week? * Laya Gaxiola - 01/04/2022 10:56 AM CDT Pt called and stated that she is having constant diarrhea. Pt states that increased the dosage of the mesalamine medication. Pt is requesting for a appt on 01/11 if possible. Please give Pt a call back to discuss [phone] documented in this encounter Plan of Treatment Upcoming Encounters Date Type Department Care Team (Late st Contact Info) Description 08/03/2024 2:00 PM PIPE FITTER SUPERVISOR Appointment [address] [address] Josué Cook MD [address] [address] documented as of this encounter Goals Goal Patient Goal Type Associated Problems Recent Progress Patient-Stated? Author [facility] General Vannessa Light, ELMO documented as of this encounter Visit Diagnoses Not on filedocumented in this encounter Additional Health Concerns Assessment Noted Time PHQ-9 Depression Total Score: 0 07/06/20 21 4:06 PM PIPE FITTER SUPERVISOR documented as of this encounter Care Teams Dope Heater Relationship Specialty Start Date End Date Jared Abrams MD PCP - General 08/28/11 07/16/22 documented as of this encounter
--- OUTSIDE RECORDS SUMMARY | 2024-07-12 19:34 | XMS_ITS | Encounter Summary ---
Author Organization [facility] Address [address] [facility] [place] [address] [place] [address] Care Team Providers Care Car Restorer Name Role Phone Jared Abrams MD Primary Care Provider [phone] Encounter Details Date Type Department Care Team (Late st Contact Info) Description 10/05/2021 Medication Management [facility] Medical Group Multispecialty Care - [facility] [address] [facility] [address] [place] [address] Vladimir Parsons MD [address] [place] [address] [address] [place] [address] Social History Tobacco Use Types Packs/Day Years [...] Coronavirus/COVID-19? No / Unsure 10/05/2021 9:27 AM VIBRATORY PILE DRIVER documented as of this encounter Functional Status [...] Date Author Status No 03/23/2020 1:13 PM CDHannah Mello RN Active documented in this encounter Plan of Treatment Upcoming Encounters Date Type Department Care Team (Late st Contact Info) Description 08/03/2024 2:00 PM VIBRATORY PILE DRIVER Appointment [facility] [address] [place] [address] Josué Cook MD [address] [address] documented as of this encounter Goals Goal Patient Goal Type Associated Problems Recent Progress Patient-Stated? Author HOME TO [facility] No Vannessa Blackwell RN documented as of this encounter Visit Diagnoses Diagnosis Ulcerative pancolitis without complication ([facility]) documented in this encounter Additional Health Concerns Assessment Noted Time PHQ-9 Depression Total Score: 0 07/06/20 21 4:06 PM VIBRATORY PILE DRIVER documented as of this encounter Care Teams Car Restorer Relationship Specialty Start Date End Date Jared Abrams MD PCP - General 08/28/11 07/16/22 documented as of this encounter
--- OUTSIDE RECORDS SUMMARY | 2024-07-12 19:34 | XMS_ITS | Encounter Summary ---
Author Organization [facility] Address [address] [facility] [place] [address] [place] [address] Care Team Providers Care Naval Architect Name Role Phone Jared Abrams MD Primary Care Provider [phone] Reason for Visit * Reason Onset Date Comments Diarrhea 05/09/2021 Encounter Details Date Type Department Care Team (Late st Contact Info) Description 05/09/2021 Telephone [facility] Medical Group Multispecialty Care - [facility] 3 [facility], [address] [place] [phone] Vladimir Parsons MD 3 [facility] [address] [place] [address] Diarrhea Social History Tobacco Use Types Packs/Day Years [...] documented in this encounter Progress Notes * Norma Rascon MA - 05/11/2021 3:58 PM CDT Pt came to the [facility] and Dr. Parsons saw her * Hayley Leon - 05/09/2021 2:11 PM CDT Patient has been having diarrhea every day, and wants to know what she can take. Please follow up with patient. documented in this encounter Plan of Treatment Upcoming Encounters Date Type Department Care Team (Late st Contact Info) Description 08/03/2024 2:00 PM REGISTERED PHYSICAL THERAPIST Appointment [facility] Day [facility] [address] [place] [address] Josué Cook MD [address] [address] documented as of this encounter Goals Goal Patient Goal Type Associated Problems Recent Progress Patient-Stated? Author [facility] General No Vannessa Blackwell RN documented as of this encounter Visit Diagnoses Not on filedocumented in this encounter Care Teams Naval Architect Relationship Specialty Start Date End Date Jared Abrams MD PCP - General 08/28/11 07/16/22 documented as of this encounter
--- OUTSIDE RECORDS SUMMARY | 2024-07-12 19:35 | XMS_ITS | Encounter Summary ---
Author Organization [facility] Address [address] [facility] [place] [address] [place] [address] Care Team Providers Care Marketing Performance Analyst Name Role Phone Jared Abrams MD Primary Care Provider [phone] Encounter Details Date Type Department Care Team (Late Contact Info) Description 08/25/2006 Abstract [facility] CONVERSION [address] [place] [address] David Foy, COLOR CONTROL OPERATOR [address] [place], [place] [phone] Social History Tobacco Use Types Packs/Day Years Used Date Smoking Tobacco: Never Assessed Comments Unknown Sex and Gender Information Value Date Recorded Sex Assigned at Not on file Legal Sex Female 4:50 PM CDT Gender Identity Not on file Sexual Orientation Not on file documented as of this encounter Plan of Treatment Upcoming Encounters Date Type Department Care Team (Late Contact Info) Description 08/03/2024 2:00 PM TANK DRIVER Appointment [facility] One Day Services [address] [place] [address] Josué Cook MD [address] [address] documented as of this encounter Visit Diagnoses Not on filedocumented in this encounter Care Teams Marketing Performance Analyst Relationship Specialty Start Date End Date Jared Abrams MD PCP - General 08/28/11 07/16/22 documented as of this encounter
--- OUTSIDE RECORDS SUMMARY | 2024-07-12 19:35 | XMS_ITS | Encounter Summary ---
Author Organization [facility] Address [address] [facility] [place] [address] [place] [address] Care Team Providers Care Quarry Plant Crusher Operator Name Role Phone Jared Abrams MD Primary Care Provider [phone] Encounter Details Date Type Department Care Team (Late st Contact Info) Description 06/26/2011 Abstract [facility] [address] [place] [address] David Foy, MACHINE FILLER SERVICER [address] [place], [place] [phone] Social History Tobacco Use Types Packs/Day Years [...] st Contact Info) Description 08/03/2024 2:00 PM LABORER GOLF COURSE Appointment [facility] [address] [place] [address] Josué Cook MD [address] [address] documented as of this encounter Visit Diagnoses Diagnosis Other screening mammogram documented in this encounter Care Teams Quarry Plant Crusher Operator Relationship Specialty Start Date End Date Jared Abrams MD PCP - General 08/28/11 07/16/22 documented as of this encounter
--- OUTSIDE RECORDS SUMMARY | 2024-07-12 19:35 | XMS_ITS | Encounter Summary ---
Author Organization [facility] Address [address] [facility] [place] [address] [place] [address] Care Team Providers Care Photographer Finish Name Role Phone Jared Abrams MD Primary Care Provider [phone] Encounter Details Date Type Department Care Team (Late Contact Info) Description 03/19/2010 Abstract [facility] CONVERSION [address] [place] [address] Jared Abrams MD [address] [place] [address] Social History Tobacco Use Types Packs/Day Years [...] (Late Contact Info) Description 08/03/2024 2:00 PM SECURITIES TRADER Appointment [facility] One Day Services [address] [place] [address] Josué Cook MD [address] [place] [address] documented as of this encounter Visit Diagnoses Not on filedocumented in this encounter Care Teams Photographer Finish Relationship Specialty Start Date End Date Jared Abrams MD PCP - General 08/28/11 07/16/22 documented as of this encounter
--- OUTSIDE RECORDS SUMMARY | 2024-07-12 19:35 | XMS_ITS | Encounter Summary ---
Author Organization [facility] Address [address] [facility] [place] [address] [place] [address] Care Team Providers Care Cable Installer Repairer Name Role Phone Jared Abrams MD Primary Care Provider [phone] Encounter Details Date Type Department Care Team (Latest Contact Info) Description 10/04/2013 Abstract [facility] [place] [address] [address] [address] Social History Tobacco Use Types Packs/Day Years [...] st Contact Info) Description 08/03/2024 2:00 PM ATMOSPHERIC SCIENCES PROFESSOR Appointment [facility] One Day Services [address] [place] [address] Josué Cook MD [address] [address] documented as of this encounter Visit Diagnoses Not on filedocumented in this encounter Care Teams Cable Installer Repairer Relationship Specialty Start Date End Date Jared Abrams MD PCP - General 08/28/11 07/16/22 documented as of this encounter
--- OUTSIDE RECORDS SUMMARY | 2024-07-12 19:35 | XMS_ITS | Encounter Summary ---
Author Organization [facility] Address [address] [facility] [place] [address] [place] [address] Care Team Providers Care Gas System Operator Name Role Phone Jared Abrams MD Primary Care Provider [phone] Encounter Details Date Type Department Care Team (Late st Contact Info) Description 02/11/2014 Abstract [facility] Day Services [address] [place] [address] Saji Vargas MD [address] [phone] Social History Tobacco Use Types Packs/Day Years [...] st Contact Info) Description 08/03/2024 2:00 PM POLISHING WHEEL REPAIRER Appointment [facility] [address] [place] [address] Josué Cook MD [address] [address] documented as of this encounter Visit Diagnoses Diagnosis Osteoarthrosis involving lower leg documented in this encounter Care Teams Gas System Operator Relationship Specialty Start Date End Date Jared Abrams MD PCP - General 08/28/11 07/16/22 documented as of this encounter
--- OUTSIDE RECORDS SUMMARY | 2024-07-12 19:35 | XMS_ITS | Encounter Summary ---
Author Organization [facility] Address [address] [place] [address] [place] [address] Care Team Providers Care Service Cleaner Name Role Phone Jared Abrmas MD Primary Care Provider [phone] Encounter Details Date Type Department Care Team (Late st Contact Info) Description 09/23/2011 Abstract [facility] [address] [place] [address] Jared Abrams MD [address] [place] [address] Social History Tobacco Use Types Packs/Day Years [...] st Contact Info) Description 08/03/2024 2:00 PM COMPUTER METHODS ANALYST Appointment [facility] One Day Services [address] [place] [address] Josué Cook MD [address] [place] [address] documented as of this encounter Visit Diagnoses Diagnosis Essential hypertension Unspecified essential hypertension documented in this encounter Care Teams Service Cleaner Relationship Specialty Start Date End Date Jared Abrams MD PCP - General 08/28/11 07/16/22 documented as of this encounter
--- OUTSIDE RECORDS SUMMARY | 2024-07-12 19:35 | XMS_ITS | Encounter Summary ---
Author Organization [facility] Address [address] [facility] [place] [address] [place] [address] Care Team Providers Care Director Of Academic Name Role Phone Jared Abrams MD Primary Care Provider [phone] Encounter Details Date Type Department Care Team (Late Contact Info) Description 2006 Abstract [facility] CONVERSION [address] [place] [address] Scar Diaz MD [address] [place] [address] Social History Tobacco Use Types Packs/Day Years [...] (Late Contact Info) Description 08/03/2024 2:00 PM BARLEY STEEPER Appointment [facility] Day [facility] [address] [place], [place] [id number] Josué Cook MD [address] [facility] 8 [place] [address] documented as of this encounter Visit Diagnoses Not on filedocumented in this encounter Care Teams Director Of Academic Relationship Specialty Start Date End Date Jared Abrams MD PCP - General 08/28/11 07/16/22 documented as of this encounter
--- OUTSIDE RECORDS SUMMARY | 2024-07-12 19:35 | XMS_ITS | Encounter Summary ---
Author Organization [facility] Address [address] [facility] [place] [address] [place] [address] Care Team Providers Care Book Salesman Name Role Phone Jared Abrams MD Primary Care Provider [phone] Encounter Details Date Type Department Care Team (Late st Contact Info) Description 07/25/[address] [facility] [address] [place] [address] Jared Abrams MD [address] [place] [address] Social History Tobacco Use Types Packs/Day Years [...] st Contact Info) Description 08/03/2024 2:00 PM ULTRASOUND SPEC Appointment [facility] [address] [place] [address] Josué Cook MD [address] [place] [address] documented as of this encounter Visit Diagnoses Diagnosis Encounter for screening mammogram for malignant neoplasm of breast Other screening mammogram documented in this encounter Care Teams Book Salesman Relationship Specialty Start Date End Date Jared Abrams MD PCP - General 08/28/11 07/16/22 documented as of this encounter
--- OUTSIDE RECORDS SUMMARY | 2024-07-12 19:35 | XMS_ITS | Encounter Summary ---
Author Organization [facility] Address [address] [place] [address] [place] [address] Care Team Providers Care Distillery Worker General Name Role Phone Jared Abrams MD Primary Care Provider [phone] Encounter Details Date Type Department Care Team (Late Contact Info) Description 08/28/2011 Abstract [facility] [place] [address] Marii Vela MD ONE [facility] [place] [address] [phone] (Work) Social History Tobacco Use Types Packs/Day Years [...] st Contact Info) Description 08/03/2024 2:00 PM COMMERCIAL LENDING ASSISTANT Appointment [facility] Day Services [address] [place] [phone] Josué Cook MD [address] [place] [address] [place] [address] documented as of this encounter Visit Diagnoses Diagnosis Acute renal failure (CMS/HCC) Acute kidney failure, unspecified documented in this encounter Care Teams Distillery Worker General Relationship Specialty Start Date End Date Jared Abrams MD PCP - General 08/28/11 07/16/22 documented as of this encounter
--- OUTSIDE RECORDS SUMMARY | 2024-07-12 19:35 | XMS_ITS | Encounter Summary ---
Author Organization [facility] Address [address] [facility] [place] [address] [place] [address] Care Team Providers Care Animal Cruelty Investigation Supervisor Name Role Phone Jared Abrams MD Primary Care Provider Encounter Details Date Type Department Care Team (Late Contact Info) Description 10/07/2003 Abstract [facility] CONVERSION [address] [place] [address] , Generic ConversionMD Social History Tobacco Use Types Packs/Day Years [...] (Late Contact Info) Description 08/03/2024 2:00 PM RIVET PASSER Appointment [facility] [address] [place] [address] Josué Cook MD [address] [address] documented as of this encounter Visit Diagnoses Not on filedocumented in this encounter Care Teams Animal Cruelty Investigation Supervisor Relationship Specialty Start Date End Date Jared Abrams MD PCP - General 08/28/11 07/16/22 documented as of this encounter
--- OUTSIDE RECORDS SUMMARY | 2024-07-12 19:35 | XMS_ITS | Encounter Summary ---
Author Organization [facility] Address [address] [facility] [place] [address] [place] [address] Care Team Providers Care Manager Inventory Control Name Role Phone Jared Abrams MD Primary Care Provider [phone] Encounter Details Date Type Department Care Team (Late st Contact Info) Description 02/08/2014 Abstract [facility] [address] [place] [address] Social History Tobacco Use Types Packs/Day Years [...] st Contact Info) Description 08/03/2024 2:00 PM APPRAISER OIL AND WATER Appointment [facility] [address] [place] [address] Josué Cook MD [address] [facility] 8 [place] [address] documented as of this encounter Visit Diagnoses Diagnosis Pre-operative examination Preoperative examination, unspecified documented in this encounter Care Teams Manager Inventory Control Relationship Specialty Start Date End Date Jared Abrams MD PCP - General 08/28/11 07/16/22 documented as of this encounter
--- OUTSIDE RECORDS SUMMARY | 2024-07-12 19:35 | XMS_ITS | Encounter Summary ---
Author Organization [facility] Address [address] [place] [address] [place] [address] Care Team Providers Care Detail Sergeant Name Role Phone Jared Abrams MD Primary Care Provider [phone] Encounter Details Date Type Department Care Team (Late Contact Info) Description 01/21/2011 Abstract [facility] Nuclear Medicine [address] [place] [address] David Foy, HANDS PARTER [address] [place], [place] [phone] Social History Tobacco Use Types Packs/Day Years [...] (Late Contact Info) Description 08/03/2024 2:00 PM UTILITY HELICOPTER REPAIRER Appointment [facility] One Day Services [address] [place] [address] Josué Cook MD [address] [facility] 8 [place] [address] documented as of this encounter Visit Diagnoses Diagnosis Pain in joint, pelvic region and thigh documented in this encounter Care Teams Detail Sergeant Relationship Specialty Start Date End Date Jared Abrams MD PCP - General 08/28/11 07/16/22 documented as of this encounter
--- OUTSIDE RECORDS SUMMARY | 2024-07-12 19:35 | XMS_ITS | Encounter Summary ---
Author Organization [facility] Address [address] [facility] [place] [address] [place] [address] Care Team Providers Care Archives Technician Name Role Phone Jared Abrams MD Primary Care Provider [phone] Encounter Details Date Type Department Care Team (Late Contact Info) Description 09/26/2003 Abstract [facility] CONVERSION [address] [place] [address] , Generic ConversionMD Social History Tobacco Use [...] (Late Contact Info) Description 08/03/2024 2:00 PM ENGINE PILOT Appointment [facility] [address] [place] [address] Josué Cook MD [address] [address] documented as of this encounter Visit Diagnoses Not on filedocumented in this encounter Care Teams Archives Technician Relationship Specialty Start Date End Date Jared Abrams MD PCP - General 08/28/11 07/16/22 documented as of this encounter
--- OUTSIDE RECORDS SUMMARY | 2024-07-12 19:35 | XMS_ITS | Encounter Summary ---
Author Organization [facility] Address [address] [facility] [place] [address] [place] [address] Care Team Providers Care Medical Referral Coordinator Name Role Phone Jared Abrams MD Primary Care Provider [phone] Encounter Details Date Type Department Care Team (Late Contact Info) Description 02/23/2004 Abstract [facility] [address] [place] [address] Scar Diaz MD [address] [place] [address] Social History Tobacco Use Types Packs/Day Years [...] (Late Contact Info) Description 08/03/2024 2:00 PM VP CONSTRUCTION Appointment [facility] Day [facility] [address] [place], [place] [phone] Josué Cook MD [address] [facility] 8 [place] [address] documented as of this encounter Visit Diagnoses Not on filedocumented in this encounter Care Teams Medical Referral Coordinator Relationship Specialty Start Date End Date Jared Abrams MD PCP - General 08/28/11 07/16/22 documented as of this encounter
--- OUTSIDE RECORDS SUMMARY | 2024-07-12 19:35 | XMS_ITS | Encounter Summary ---
Author Organization [facility] Address [address] [facility] [place] [address] [place] [address] Care Team Providers Care Storage Consultant Name Role Phone Jared Abrams MD Primary Care Provider [phone] Encounter Details Date Type Department Care Team (Late st Contact Info) Description 08/08/2005 Abstract [facility] Clinics Conversion , Generic ConversionMD Social History Tobacco Use [...] st Contact Info) Description 08/03/2024 2:00 PM FIELD OPERATOR Appointment [facility] One Day [facility] [address] [place] [address] Josué Cook MD [address] [address] documented as of this encounter Visit Diagnoses Not on filedocumented in this encounter Care Teams Storage Consultant Relationship Specialty Start Date End Date Jared Abrams MD PCP - General 08/28/11 07/16/22 documented as of this encounter
--- OUTSIDE RECORDS SUMMARY | 2024-07-12 19:35 | XMS_ITS | Encounter Summary ---
Author Organization [facility] Address [address] [facility] [place] [address] [place] [address] Care Team Providers Care Global Sales Executive Name Role Phone Jared Abrams MD Primary Care Provider [phone] Encounter Details Date Type Department Care Team (Late Contact Info) Description 10/28/2003 Abstract [facility] CONVERSION [address] [place] [address] Jared Abrams MD [address] [place] [address] Social History Tobacco Use Types Packs/Day Years [...] (Late Contact Info) Description 08/03/2024 2:00 PM LEAD MEDICAL TECHNOLOGIST Appointment [facility] Day Services [address] [place] [address] Josué Cook MD [address] [place] [address] documented as of this encounter Visit Diagnoses Not on filedocumented in this encounter Care Teams Global Sales Executive Relationship Specialty Start Date End Date Jared Abrams MD PCP - General 08/28/11 07/16/22 documented as of this encounter
--- OUTSIDE RECORDS SUMMARY | 2024-07-12 19:35 | XMS_ITS | Encounter Summary ---
Author Organization [facility] Address [address] [facility] [place] [place] [address] [place] [address] Care Team Providers Care Dispatch Specialist Name Role Phone Jared Abrams MD Primary Care Provider [phone] Encounter Details Date Type Department Care Team (Late Contact Info) Description 10/04/2003 Abstract [facility] CONVERSION [address] [place] [address] , Generic ConversionMD Social History Tobacco Use [...] (Late Contact Info) Description 08/03/2024 2:00 PM FIRE CREW SPECIALIST Appointment [facility] [address] [place] [address] Josué Cook MD [address] [address] documented as of this encounter Visit Diagnoses Not on filedocumented in this encounter Care Teams Dispatch Specialist Relationship Specialty Start Date End Date Jared Abrams MD PCP - General 08/28/11 07/16/22 documented as of this encounter
--- OUTSIDE RECORDS SUMMARY | 2024-07-12 19:35 | XMS_ITS | Encounter Summary ---
Author Organization [facility] Address [address] [facility] [address] [place] [address] Care Team Providers Care Utilities Manager Name Role Phone Jared Abrams MD Primary Care Provider [phone] Encounter Details Date Type Department Care Team (Late Contact Info) Description 11/24/2007 Abstract [facility] [address] [place] [address] Jared Abrams MD [facility] [place] [address] Social History Tobacco Use Types Packs/Day Years [...] (Late Contact Info) Description 08/03/2024 2:00 PM END STAPLER Appointment [facility] Day [facility] [address] [place], [place] [phone] Josué [place] [address] [place] [address] documented as of this encounter Visit Diagnoses Not on filedocumented in this encounter Care Teams Utilities Manager Relationship Specialty Start Date End Date Jared Abrams MD PCP - General 08/28/11 07/16/22 documented as of this encounter
--- OUTSIDE RECORDS SUMMARY | 2024-07-12 19:35 | XMS_ITS | Encounter Summary ---
Author Organization [facility] Address [address] [facility] [place] [address] [place] [address] Care Team Providers Care Education Professional Name Role Phone Jared Abrams MD Primary Care Provider [phone] Encounter Details Date Type Department Care Team (Late Contact Info) Description 05/20/2008 Abstract [facility] [address]15 [place] [address] Scar Diaz MD [address] [place] [address] Social History Tobacco Use Types Packs/Day Years [...] (Late Contact Info) Description 08/03/2024 2:00 PM CLOTH SHADER Appointment [facility] Day [facility] [address] [place], [place] [phone] Josué Cook MD [address] [facility] 8 [place] [address] documented as of this encounter Visit Diagnoses Not on filedocumented in this encounter Care Teams Education Professional Relationship Specialty Start Date End Date Jared Abrams MD PCP - General 08/28/11 07/16/22 documented as of this encounter
--- OUTSIDE RECORDS SUMMARY | 2024-07-12 19:35 | XMS_ITS | Encounter Summary ---
Author Organization [facility] Address [address] [place] [address] [place] [address] Care Team Providers Care Machine Heddle Cleaner Name Role Phone Jared Abrams MD Primary Care Provider Encounter Details Date Type Department Care Team (Late st Contact Info) Description 04/21/2004 Abstract [facility] Clinics Conversion , Generic ConversionMD Social [...] st Contact Info) Description 08/03/2024 2:00 PM CAN SEALER Appointment [facility] One Day [facility] [address] [place] [address] Josué Cook MD [address] [address] documented as of this encounter Visit Diagnoses Not on filedocumented in this encounter Care Teams Machine Heddle Cleaner Relationship Specialty Start Date End Date Jared Abrams MD PCP - General 08/28/11 07/16/22 documented as of this encounter
--- OUTSIDE RECORDS SUMMARY | 2024-07-12 19:35 | XMS_ITS | Encounter Summary ---
Author Organization [facility] Address [address] [facility] [place] [address] [place] [address] Care Team Providers Care Leak Inspector Name Role Phone Jared Abrams MD Primary Care Provider [phone] Encounter Details Date Type Department Care Team (Late Contact Info) Description 08/07/2005 Abstract [facility] [address] [place] [address] Jared Abrams MD [facility]2 [place] [address] Social History Tobacco Use Types Packs/Day Years [...] (Late Contact Info) Description 08/03/2024 2:00 PM AUTHOR AGENT Appointment [facility] Day [facility] [address] [place], [place] [address] Josué [place] [address] [place] [address] documented as of this encounter Visit Diagnoses Not on filedocumented in this encounter Care Teams Leak Inspector Relationship Specialty Start Date End Date Jared Abrams MD PCP - General 08/28/11 07/16/22 documented as of this encounter
--- OUTSIDE RECORDS SUMMARY | 2024-07-12 19:35 | XMS_ITS | Encounter Summary ---
Author Organization [facility] Address [address] [facility] [place] [address] [place] [address] Care Team Providers Care Tower Truck Driver Name Role Phone Jared Abrams MD Primary Care Provider [phone] Encounter Details Date Type Department Care Team (Latest Contact Info) Description 03/19/2020 Travel Social History Tobacco Use Types Packs/Day [...] PM CDT documented as of this encounter Plan of Treatment Upcoming Encounters Date Type Department Care Team (Late st Contact Info) Description 08/03/2024 2:00 PM STOCK MANAGER Appointment [facility] [address] [place] [address] Josué Cook MD [address] [address] documented as of this encounter Visit Diagnoses Not on filedocumented in this encounter Care Teams Tower Truck Driver Relationship Specialty Start Date End Date Jared Abrams MD PCP - General 08/28/11 07/16/22 documented as of this encounter
--- OUTSIDE RECORDS SUMMARY | 2024-07-12 19:35 | XMS_ITS | Encounter Summary ---
Author Organization [facility] Address [address] [facility] [place] [address] [place] [address] Care Team Providers Care Scaffold Setter Name Role Phone Jared Abrams MD Primary Care Provider [phone] Encounter Details Date Type Department Care Team (Late Contact Info) Description 12/15/2003 Abstract [facility] [address] [place] [address] Scar Diaz MD [address] [place] [address] Social History Tobacco Use Types Packs/Day Years [...] (Late Contact Info) Description 08/03/2024 2:00 PM DRAFTING INSTRUCTOR Appointment [facility] Day [facility] [address] [place], [place] [phone] Josué Cook MD [address] [facility] 8 [place] [address] documented as of this encounter Visit Diagnoses Not on filedocumented in this encounter Care Teams Scaffold Setter Relationship Specialty Start Date End Date Jared Abrams MD PCP - General 08/28/11 07/16/22 documented as of this encounter
--- OUTSIDE RECORDS SUMMARY | 2024-07-12 19:35 | XMS_ITS | Encounter Summary ---
Author Organization [facility] Address [address] [facility] [place] [address] [place] [address] Care Team Providers Care Leather Etcher Name Role Phone Jared Abrams MD Primary Care Provider [phone] Encounter Details Date Type Department Care Team (Late Contact Info) Description 08/28/2006 Abstract [facility] CONVERSION [address] [place] [address] Scar Diaz MD [address] [place] [address] Social History Tobacco Use Types Packs/Day Years [...] (Late Contact Info) Description 08/03/2024 2:00 PM GUM MAKER Appointment [facility] One Day Services [address] [place] [address] Josué Cook MD [address] [place] [address] 8 [place] [address] documented as of this encounter Visit Diagnoses Not on filedocumented in this encounter Care Teams Leather Etcher Relationship Specialty Start Date End Date Jared Abrams MD PCP - General 08/28/11 07/16/22 documented as of this encounter
--- OUTSIDE RECORDS SUMMARY | 2024-07-12 19:35 | XMS_ITS | Encounter Summary ---
Author Organization [facility] Address [address] [facility] [place] [address] [place] [address] Care Team Providers Care Novelty Balloon Assembler And Packer Name Role Phone Jared Abrams MD Primary Care Provider [phone] Encounter Details Date Type Department Care Team (Late Contact Info) Description 09/23/2008 Abstract [facility] One Day Services [address] [place] [address] Vladimir Parsons MD [address] [address] Social History Tobacco Use Types Packs/Day Years [...] (Late Contact Info) Description 08/03/2024 2:00 PM OCEAN IMPORT REPRESENTATIVE Appointment [facility] One Day Services [address] [place] [address] Josué Cook MD [facility] [address] [address] documented as of this encounter Visit Diagnoses Not on filedocumented in this encounter Care Teams Novelty Balloon Assembler And Packer Relationship Specialty Start Date End Date Jared Abrams MD PCP - General 08/28/11 07/16/22 documented as of this encounter
--- OUTSIDE RECORDS SUMMARY | 2024-07-12 19:35 | XMS_ITS | Encounter Summary ---
Author Organization [facility] Address [address] [facility] [place] [address] [place] [address] Care Team Providers Care Media Planner / Buyer Name Role Phone Jared Abrams MD Primary Care Provider [phone] Encounter Details Date Type Department Care Team (Late Contact Info) Description 03/22/2010 Abstract [facility] [address] [place] [address] Scar Diaz MD [address] [place] [address] Social History Tobacco Use Types Packs/Day Years [...] (Late Contact Info) Description 08/03/2024 2:00 PM WHEEL BORER Appointment [facility] Day [facility] [address] [place], [place] [phone] Josué Cook MD [address] [facility] 8 [place] [address] documented as of this encounter Visit Diagnoses Not on filedocumented in this encounter Care Teams Media Planner / Buyer Relationship Specialty Start Date End Date Jared Abrams MD PCP - General 08/28/11 07/16/22 documented as of this encounter
--- OUTSIDE RECORDS SUMMARY | 2024-07-12 19:35 | XMS_ITS | Encounter Summary ---
Author Organization [facility] Address [address] [place] [address] [place] [address] Care Team Providers Care Coal Handling Supervisor Name Role Phone Jared Abrams MD Primary Care Provider [phone] Encounter Details Date Type Department Care Team (Late st Contact Info) Description 01/19/2014 Abstract [facility] [address] [place] [address] Jared Abrams MD [address] [place], [place] [id number] Social History Tobacco Use Types Packs/Day Years [...] st Contact Info) Description 08/03/2024 2:00 PM FUNDRAISING CONSULTANT Appointment [facility] One Day Services [address] [place] [address] Josué Cook MD [facility] [address] documented as of this encounter Visit Diagnoses Diagnosis Pain in joint, lower leg documented in this encounter Care Teams Coal Handling Supervisor Relationship Specialty Start Date End Date Jared Abrams MD PCP - General 08/28/11 07/16/22 documented as of this encounter
--- OUTSIDE RECORDS SUMMARY | 2024-07-12 19:35 | XMS_ITS | Encounter Summary ---
Author Organization [facility] Address [address] [facility] [place] [address] [place] [address] Care Team Providers Care Casino Enforcement Agent Name Role Phone Jared Abrams MD Primary Care Provider [phone] Encounter Details Date Type Department Care Team (Late Contact Info) Description 12/27/2003 Abstract [facility] CONVERSION [address] [place] [address] Jared Abrams MD [address] [place] [address] Social History Tobacco Use Types Packs/Day Years [...] (Late Contact Info) Description 08/03/2024 2:00 PM PRAWN TRAWLER HAND Appointment [facility] One Day Services [address] [place] [address] Josué Cook MD [address] [place] [address] documented as of this encounter Visit Diagnoses Not on filedocumented in this encounter Care Teams Casino Enforcement Agent Relationship Specialty Start Date End Date Jared bArams MD PCP - General 08/28/11 07/16/22 documented as of this encounter
--- OUTSIDE RECORDS SUMMARY | 2024-07-12 19:35 | XMS_ITS | Encounter Summary ---
Author Organization [facility] Address [address] [facility] [place] [address] [place] [address] Care Team Providers Care Printer Apprentice Name Role Phone Jared Abrams MD Primary Care Provider [phone] Encounter Details Date Type Department Care Team (Late Contact Info) Description 01/12/2004 Abstract [facility] [address] [place] [address] Scar Diaz MD [address] [place] [address] Social History Tobacco Use Types Packs/Day Years [...] (Late Contact Info) Description 08/03/2024 2:00 PM TOW OPERATOR Appointment [facility] Day [facility] [address] [place], [place] [phone] Josué Cook MD [address] [facility] 8 [place] [address] documented as of this encounter Visit Diagnoses Not on filedocumented in this encounter Care Teams Printer Apprentice Relationship Specialty Start Date End Date Jared Abrams MD PCP - General 08/28/11 07/16/22 documented as of this encounter
--- OUTSIDE RECORDS SUMMARY | 2024-07-12 19:35 | XMS_ITS | Encounter Summary ---
Author Organization [facility] Address [address] [facility] [place] [address] [place] [address] Care Team Providers Care Drop Wire Aligner Name Role Phone Jared Abrams MD Primary Care Provider [phone] Encounter Details Date Type Department Care Team (Late Contact Info) Description 11/23/2009 Abstract [facility] CONVERSION [address]15 [place] [address] Scar Diaz MD [address] [place] [address] Social History Tobacco Use Types Packs/Day Years [...] (Late Contact Info) Description 08/03/2024 2:00 PM COUNCIL ON AGING DIRECTOR Appointment [facility] Day [facility] [address] [place], [place] [phone] Josué Cook MD [address] [facility] 8 [place] [address] documented as of this encounter Visit Diagnoses Not on filedocumented in this encounter Care Teams Drop Wire Aligner Relationship Specialty Start Date End Date Jared Abrams MD PCP - General 08/28/11 07/16/22 documented as of this encounter
--- OUTSIDE RECORDS SUMMARY | 2024-07-12 19:35 | XMS_ITS | Encounter Summary ---
Author Organization [facility] Address [address] [facility] [place] [address] [place] [address] Care Team Providers Care Copper Plater Name Role Phone Jared Abrams MD Primary Care Provider [phone] Encounter Details Date Type Department Care Team (Late Contact Info) Description 10/27/2003 Abstract [facility] CONVERSION 9515 [place] [address] , Generic Conversion, Social History Tobacco Use Types Packs/Day Years [...] (Late Contact Info) Description 08/03/2024 2:00 PM ROUSTABOUT CREW Appointment [facility] [address] [place] [address] Josué Cook MD [address] [address] documented as of this encounter Visit Diagnoses Not on filedocumented in this encounter Care Teams Copper Plater Relationship Specialty Start Date End Date Jared Abrams MD PCP - General 08/28/11 07/16/22 documented as of this encounter
--- OUTSIDE RECORDS SUMMARY | 2024-07-12 19:35 | XMS_ITS | Encounter Summary ---
Author Organization [facility] Address [address] [facility] [place] [address] [place] [address] Care Team Providers Care Foundry Helper Name Role Phone Jared Abrams MD Primary Care Provider [phone] Encounter Details Date Type Department Care Team (Late Contact Info) Description 04/23/2004 Abstract [facility] CONVERSION [address] [place] [address] Jared Abrams MD 1212 [place] [address] Social History Tobacco Use Types Packs/Day Years [...] (Late Contact Info) Description 08/03/2024 2:00 PM RN NAVIGATOR Appointment [facility] One Day Services [address] [place], [place] [phone] Josué Cook MD [address] [place] [address] documented as of this encounter Visit Diagnoses Not on filedocumented in this encounter Care Teams Foundry Helper Relationship Specialty Start Date End Date Jared Abrams MD PCP - General 08/28/11 07/16/22 documented as of this encounter
--- OUTSIDE RECORDS SUMMARY | 2024-07-12 19:35 | XMS_ITS | Encounter Summary ---
Author Organization [facility] Address [address] [facility] [place] [address] [place] [address] Care Team Providers Care Automated Logistics Specialist Name Role Phone Jared Abrams MD Primary Care Provider [phone] Encounter Details Date Type Department Care Team (Late st Contact Info) Description 03/22/2015 Abstract [facility] [address] [place] [address] Jared Abrams MD 1212 [place] [address] Social History Tobacco Use Types Packs/Day Years [...] st Contact Info) Description 08/03/2024 2:00 PM CHICK SEXER Appointment [facility] One Day Services [address] [place] [address] Josué Cook MD [address] [place] [address] documented as of this encounter Visit Diagnoses Diagnosis Other seborrheic keratosis documented in this encounter Care Teams Automated Logistics Specialist Relationship Specialty Start Date End Date Jared Abrams MD PCP - General 08/28/11 07/16/22 documented as of this encounter
--- OUTSIDE RECORDS SUMMARY | 2024-07-12 19:35 | XMS_ITS | Encounter Summary ---
Author Organization [facility] Address [address] [facility] [place] [address] [place] [address] Care Team Providers Care Ecotherapist Name Role Phone Jared Abrams MD Primary Care Provider Encounter Details Date Type Department Care Team (Late st Contact Info) Description 10/27/2003 Abstract [facility] Clinics Conversion , Generic ConversionMD Social History [...] st Contact Info) Description 08/03/2024 2:00 PM REPLANTING MACHINE OPERATOR Appointment [facility] One Day [facility] [address] [place] [address] Josué Cook MD [address] [address] documented as of this encounter Visit Diagnoses Not on filedocumented in this encounter Care Teams Ecotherapist Relationship Specialty Start Date End Date Jared Abrams MD PCP - General 08/28/11 07/16/22 documented as of this encounter
--- OUTSIDE RECORDS SUMMARY | 2024-07-12 19:35 | XMS_ITS | Encounter Summary ---
Author Organization [facility] Address [address] [facility] [place] [address] [place] [address] Care Team Providers Care Doorshaker Name Role Phone Jared Abrams MD Primary Care Provider [phone] Encounter Details Date Type Department Care Team (Late Contact Info) Description 01/09/2009 Abstract [facility] CONVERSION [address] [place] [address] David Foy, INSURANCE CLAIMS ASSISTANT [address] [place], [place] [phone] Social History Tobacco Use Types Packs/Day Years [...] (Late Contact Info) Description 08/03/2024 2:00 PM INFO PRINT PRESS OPERATOR Appointment [facility] One Day Services [address] [facility] [place] [address] Josué Cook MD [address] [address] documented as of this encounter Visit Diagnoses Not on filedocumented in this encounter Care Teams Doorshaker Relationship Specialty Start Date End Date Jared Abrams MD PCP - General 08/28/11 07/16/22 documented as of this encounter
--- OUTSIDE RECORDS SUMMARY | 2024-07-12 19:35 | XMS_ITS | Encounter Summary ---
Author Organization [facility] Address [address] [facility] [place] [address] [place] [address] Care Team Providers Care Stock Counter Name Role Phone Jared Abrams MD Primary Care Provider [phone] Encounter Details Date Type Department Care Team (Late Contact Info) Description 12/23/2019 Orders Only [facility] [address] [place] [address] Jared Abrams MD 1212 [place] [address] Social History Tobacco Use Types Packs/Day Years [...] (Late Contact Info) Description 08/03/2024 2:00 PM COMMERCIAL SHEET METAL FOREMAN Appointment [facility] One Day Services [address] [place] [address] Josué Cook MD [address] [facility] 8 [place] [address] documented as of this encounter Results * O&P CONC&SMEAR TO REF LAB (12/23/2019 2:50 PM CDT) SPECIMEN SOURCE STOOL 0 2:47 PM CDT [facility] O & P EXAMINATION (STOOL) REPORT 12/28/2019 4:36 PM CDT [employer] [place] [facility] Comment: Ova and Parasites, Concentrate and Permanent Smear SOURCE : STOOL Test not performed. Transport device is not acceptable for test requested. Test Performed by [employer], [employer] [facility], [address] [place] [address] Gamal Gao M.D., Ph.D., Director of Laboratories , [facility] [id number] STOOL SPECIMEN / Unknown 12/23/2019 2:50 PM CDT Jared Abrams MD MICROBIOLOGY - GENERAL ORDERAB LES Final Result [employer] [address] , [place] [phone] [facility] [address] [place] [address], [place] [phone] * CLOSTRIDIUM DIFFICILE (12/23/2019 2:50 PM CDT) Pathologist [facility] MOLECULAR ASSAY NEGATIVE NEGATIVE 12/23/2019 4:15 PM CDT [facility] STOOL SPECIMEN / Unknown 12/23/2019 2:50 PM CDT Jared Abrams MD BODY FLUIDS AND STOOLS ORDERAB LES Final Result [facility] [address] [place] [address], [place] [phone] * Stool Culture (12/23/2019 2:49 PM CDT) SPEC DESCRIPTION STOOL 12/23/2019 2:47 PM CDT [facility] SPECIAL REQUESTS NO SPECIAL REQUEST 12/23/2019 2:47 PM CDT [facility] CULTURE RESULT NEGATIVE FOR SHIGA TOXIN 1 AND 2 12/29/2019 10:46 AM CDT [facility] CULTURE RESULT NO ENTERIC PATHOGENS ISOLATED 12/29/2019 10:46 AM CDT [facility] CULTURE RESULT NOTE: STOOL CULTURES ARE ROUTINELY SCREENED FOR SALMONELLA,SH IGELLA,YERSIN IA,AEROMONAS, PLESIOMONAS,C AMPYLOBA CTER,E.COLI 0157,OVERGROW THS OF S.AUREUS,YEAS T AND P. AERUGINOSA 12/29/2019 10:46 AM CDT [facility] Stool specimen (specimen) STOOL SPECIMEN / Unknown 12/23/2019 2:49 PM CDT 12/23/2019 2:50 PM CDT us Jared Abrams MD MICROBIOLOGY - GENERAL ORDERAB LES Final Result Performing Organization Address [facility]/State/[facility] Co de Phone Number [facility] [address] [place] [address], [place] [phone] [facility] [address] [place] [address], [place] [phone] documented in this encounter Visit Diagnoses Diagnosis Diarrhea of presumed infectious origin- Primary documented in this encounter Care Teams Stock Counter Relationship Specialty Start Date End Date Jared Abrams MD PCP - General 08/28/11 07/16/22 documented as of this encounter
--- OUTSIDE RECORDS SUMMARY | 2024-07-12 19:35 | XMS_ITS | Encounter Summary ---
Author Organization [facility] Address [address] [place] [address] [place] [address] Care Team Providers Care Tub Tender Name Role Phone Jared Abrams MD Primary Care Provider [phone] Encounter Details Date Type Department Care Team (Late st Contact Info) Description 11/17/2003 Abstract [facility] Conversion , Generic ConversionMD Social History [...] st Contact Info) Description 08/03/2024 2:00 PM PYTHON ARCHITECT Appointment [facility] One Day [facility] [address] [place] [address] Josué Cook MD [address] [address] documented as of this encounter Visit Diagnoses Not on filedocumented in this encounter Care Teams Tub Tender Relationship Specialty Start Date End Date Jared Abrams MD PCP - General 08/28/11 07/16/22 documented as of this encounter
--- OUTSIDE RECORDS SUMMARY | 2024-07-12 19:35 | XMS_ITS | Encounter Summary ---
Author Organization [facility] Address [address] [facility] [place] [address] [place] [address] Care Team Providers Care Material Spreader Name Role Phone Jared Abrams MD Primary Care Provider [phone] Encounter Details Date Type Department Care Team (Late st Contact Info) Description 07/06/2012 Abstract [facility] [address] [place] [address] Jared Abrams MD 1212 [place] [address] Social History Tobacco Use Types Packs/Day Years [...] st Contact Info) Description 08/03/2024 2:00 PM OYSTER WORKER Appointment [facility] One Day Services [address] [place] [address] Josué Cook MD [address] [place] [address] documented as of this encounter Visit Diagnoses Diagnosis Other seborrheic keratosis documented in this encounter Care Teams Material Spreader Relationship Specialty Start Date End Date Jared Abrams MD PCP - General 08/28/11 07/16/22 documented as of this encounter
--- OUTSIDE RECORDS SUMMARY | 2024-07-12 19:35 | XMS_ITS | Encounter Summary ---
Author Organization [facility] Address [address] [facility] [place] [address] [place] [address] Care Team Providers Care Community Associate Name Role Phone Jared Abrams MD Primary Care Provider [phone] Encounter Details Date Type Department Care Team (Late st Contact Info) Description 10/27/2012 Abstract [facility] [address] [place] [address] Jared Abrams MD 1212 [place] [address] Social History Tobacco Use Types Packs/Day Years [...] st Contact Info) Description 08/03/2024 2:00 PM JANITOR CARETAKER Appointment [facility] One Day Services [address] [place] [address] Josué Cook MD [address] [place] [address] documented as of this encounter Visit Diagnoses Diagnosis Encounter for screening mammogram for high-risk patient documented in this encounter Care Teams Community Associate Relationship Specialty Start Date End Date Jared Abrams MD PCP - General 08/28/11 07/16/22 documented as of this encounter
--- OUTSIDE RECORDS SUMMARY | 2024-07-12 19:35 | XMS_ITS | Encounter Summary ---
Author Organization [facility] Address [address] [facility] [place] [address] [place] [address] Care Team Providers Care 3D Designer Name Role Phone Jared Abrams MD Primary Care Provider [phone] Encounter Details Date Type Department Care Team (Late Contact Info) Description 05/19/2007 Abstract [facility] CONVERSION [address] [place] [address] Marii Rhodes PA-C [address] [place] [address] Social History Tobacco Use Types Packs/Day Years [...] st Contact Info) Description 08/03/2024 2:00 PM PRIMER WATERPROOFING MACHINE ADJUSTER Appointment [facility] One Day Services [address] [facility] [address] Josué Cook MD [address] [facility] 8 [place] [address] documented as of this encounter Visit Diagnoses Not on filedocumented in this encounter Care Teams 3D Designer Relationship Specialty Start Date End Date Jared Abrams MD PCP - General 08/28/11 07/16/22 documented as of this encounter
--- OUTSIDE RECORDS SUMMARY | 2024-07-12 19:35 | XMS_ITS | Encounter Summary ---
Author Organization [facility] Address [address] [facility] [place] [address] [place] [address] Care Team Providers Care Disability Manager Name Role Phone Jared Abrams MD Primary Care Provider [phone] Encounter Details Date Type Department Care Team (Late Contact Info) Description 05/01/2004 Abstract [facility] CONVERSION [address] [facility] [address] Scar Diaz MD [address] [place] [phone] Social History Tobacco Use Types Packs/Day Years [...] (Late Contact Info) Description 08/03/2024 2:00 PM SERVICE SPRINKLER HELPER Appointment [facility] One Day Services [address] [place] [address] Josué Cook MD [address] [place] [address] 8 [place] [address] documented as of this encounter Visit Diagnoses Not on filedocumented in this encounter Care Teams Disability Manager Relationship Specialty Start Date End Date Jared Abrams MD PCP - General 08/28/11 07/16/22 documented as of this encounter
--- OUTSIDE RECORDS SUMMARY | 2024-07-12 19:35 | XMS_ITS | Encounter Summary ---
Author Organization [facility] Address [address] [place] [address] [place] [address] Care Team Providers Care Assurance Engineer Name Role Phone Jared Abrams MD Primary Care Provider [phone] Encounter Details Date Type Department Care Team (Late Contact Info) Description 03/12/2004 Abstract [facility] CONVERSION [address] [place] [address] Jared Abrams MD 1212 [place] [address] Social History Tobacco Use Types Packs/Day Years [...] (Late Contact Info) Description 08/03/2024 2:00 PM CRANE HELPER Appointment [facility] One Day Services [address] [place], [place] [phone] Josué Cook MD [address] [place] [address] documented as of this encounter Visit Diagnoses Not on filedocumented in this encounter Care Teams Assurance Engineer Relationship Specialty Start Date End Date Jared Abrams MD PCP - General 08/28/11 07/16/22 documented as of this encounter
--- OUTSIDE RECORDS SUMMARY | 2024-07-12 19:35 | XMS_ITS | Encounter Summary ---
Author Organization [facility] Address [address] [facility] [place] [address] [place] [address] Care Team Providers Care Traffic Technician Name Role Phone Jared Abrams MD Primary Care Provider Encounter Details Date Type Department Care Team (Late Contact Info) Description 03/19/2005 Abstract [facility] CONVERSION 9515 [place] [address] Scar Diaz MD [address] [place] [address] Social History Tobacco Use Types Packs/Day Years [...] (Late Contact Info) Description 08/03/2024 2:[address] TESTER Appointment [facility] Day [facility] [address] [place], [place] [phone] Josué Cook MD [address] [facility] 8 [place] [address] documented as of this encounter Visit Diagnoses Not on filedocumented in this encounter Care Teams Traffic Technician Relationship Specialty Start Date End Date Jared Abrams MD PCP - General 08/28/11 07/16/22 documented as of this encounter
--- OUTSIDE RECORDS SUMMARY | 2024-07-12 19:35 | XMS_ITS | Encounter Summary ---
Author Organization [facility] Address [address] [facility] [place] [address] [place] [address] Care Team Providers Care Gm Mobile Name Role Phone Jared Abrams MD Primary Care Provider [phone] Encounter Details Date Type Department Care Team (Late Contact Info) Description 08/12/2006 Abstract [facility] CONVERSION 9515 [place] [address] Jared Abrams MD [facility] [place] [address] Social History Tobacco Use Types Packs/Day Years [...] (Late Contact Info) Description 08/03/2024 2:00 PM STOCK PATCHER Appointment [facility] Day [facility] [address] [place], [place] [address] [place]ué [place] [address] [place] [address] documented as of this encounter Visit Diagnoses Not on filedocumented in this encounter Care Teams Gm Mobile Relationship Specialty Start Date End Date Jared Abrams MD PCP - General 08/28/11 07/16/22 documented as of this encounter
--- OUTSIDE RECORDS SUMMARY | 2024-07-12 19:35 | XMS_ITS | Encounter Summary ---
Author Organization [facility] Address [address] [place] [address] [place] [address] Care Team Providers Care Principal Archaeologist Name Role Phone Jared Abrams MD Primary Care Provider [phone] Encounter Details Date Type Department Care Team (Late st Contact Info) Description 04/19/2004 Abstract [facility] Conversion Lauro Becerra MD [address] [id number] Social History Tobacco Use Types Packs/Day Years Used Date Smoking Tobacco: Never Assessed Comments Unknown Sex and Gender Information Value Date Recorded Sex Assigned at Not on file Legal Sex Female 4:50 PM CDT Gender Identity Not on file Sexual Orientation Not on file documented as of this encounter Progress Notes * Lauro Becerra MD - 04/19/2004 12:00 AM CDT HOSPITAL ADMISSION .0 Patient Name: RADHA ALLEN Patient : [id number] Admitting Physician: BASSAM Admission Date: 04/19/04 Discharge Date: 04/23/04 Discharge Diagnosis: 1. 996.4 MECHANICAL COMPLICATION OF INTERNAL ORTHOPEDIC DEVICE/IMPLANT/GRAFT 2. 733.82 NONUNION OF FRACTURE 3. 401.9 ESSENTIAL HYPERTENSION, UNSPECIFIED BENIGN OR MALIGNANT 4. 733.00 OSTEOPOROSIS, UNSPECIFIED 5. 285.9 ANEMIA, UNSPECIFIED Procedures Performed: 1. 815.2 PARTIAL HIP REPLACEMENT / SANTHOSH 2. 786.5 REMOVAL OF IMPLANTED DEVICES FROM FEMUR / SANTHOSH Consultants: SANTHOSH PACK WORKER documented in this encounter Plan of Treatment Upcoming Encounters Date Type Department Care Team (Late st Contact Info) Description 08/03/2024 2:00 PM PICK PACK WORKER Appointment [facility] Day [facility] [address] [place] [address] Josué Cook MD 49[address] [facility] 8 [place] [address] documented as of this encounter Visit Diagnoses Not on filedocumented in this encounter Care Teams Principal Archaeologist Relationship Specialty Start Date End Date Jared Abrams MD PCP - General 08/28/11 07/16/22 documented as of this encounter
--- OUTSIDE RECORDS SUMMARY | 2024-07-12 19:35 | XMS_ITS | Encounter Summary ---
Author Organization [facility] Address [address] [facility] [place] [address] [place] [address] Care Team Providers Care Backer Up Name Role Phone Jared Abrams MD Primary Care Provider [phone] Encounter Details Date Type Department Care Team (Late Contact Info) Description 09/29/2006 Abstract [facility] CONVERSION [address] [place] [address] Scar Diaz MD [address] [place] [address] Social History Tobacco Use Types Packs/Day Years [...] (Late Contact Info) Description 08/03/2024 2:00 PM LITIGATION ASSISTANT Appointment [facility] One Day Services [address] [place] [address] Josué Cook MD [address] [place] [address] 8 [place] [address] documented as of this encounter Visit Diagnoses Not on filedocumented in this encounter Care Teams Backer Up Relationship Specialty Start Date End Date Jared Abrams MD PCP - General 08/28/11 07/16/22 documented as of this encounter
--- OUTSIDE RECORDS SUMMARY | 2024-07-12 19:35 | XMS_ITS | Encounter Summary ---
Author Organization [facility] Address [address] [facility] [place] [address] [place] [address] Care Team Providers Care Roentgenologist Name Role Phone Jared Abrams MD Primary Care Provider [phone] Encounter Details Date Type Department Care Team (Late Contact Info) Description 07/18/2004 Abstract [facility] CONVERSION 9515 [place] [address] Jared Abrams MD [facility] [place] [address] Social History Tobacco Use Types Packs/Day Years [...] (Late Contact Info) Description 08/03/2024 2:00 PM IBM MAINFRAME DEVELOPER Appointment [facility] Day [facility] [address] [place], [place] [address] Josué [place] [address] [place] [address] documented as of this encounter Visit Diagnoses Not on filedocumented in this encounter Care Teams Roentgenologist Relationship Specialty Start Date End Date Jared Abrams MD PCP - General 08/28/11 07/16/22 documented as of this encounter
--- OUTSIDE RECORDS SUMMARY | 2024-07-12 19:35 | XMS_ITS | Encounter Summary ---
Author Organization [facility] Address [address] [facility] [place] [address] [place] [address] Care Team Providers Care Contractor Buyer Name Role Phone Jared Abrams MD Primary Care Provider [phone] Encounter Details Date Type Department Care Team (Late Contact Info) Description 04/28/2004 Abstract [facility] CONVERSION [address] [place] [address] Scar Diaz MD [address] [place] [phone] Social History Tobacco Use Types Packs/Day Years [...] (Late Contact Info) Description 08/03/2024 2:00 PM MAINTENANCE WORKER MUNICIPAL Appointment [facility] One Day Services [address] [place] [address] Josué Cook MD [address] [place] [address] 8 [place] [address] documented as of this encounter Visit Diagnoses Not on filedocumented in this encounter Care Teams Contractor Buyer Relationship Specialty Start Date End Date Jared Abrams MD PCP - General 08/28/11 07/16/22 documented as of this encounter
--- OUTSIDE RECORDS SUMMARY | 2024-07-12 19:35 | XMS_ITS | Encounter Summary ---
Author Organization [facility] Address [address] [facility] [place] [address] [place] [address] Care Team Providers Care Manager Quality Improvement Name Role Phone Jared Abrams MD Primary Care Provider [phone] Encounter Details Date Type Department Care Team (Late Contact Info) Description 08/14/2006 Abstract [facility] CON[facility] [address]15 [place] [address] Scar Diaz MD [address] [place] [address] Social History Tobacco Use Types Packs/Day Years [...] (Late Contact Info) Description 08/03/2024 2:00 PM C D REACTOR OPERATOR Appointment [facility] Day [facility] [address] [place], [place] [phone] Josué Cook MD [address] [facility] 8 [place] [address] documented as of this encounter Visit Diagnoses Not on filedocumented in this encounter Care Teams Manager Quality Improvement Relationship Specialty Start Date End Date Jared Abrams MD PCP - General 08/28/11 07/16/22 documented as of this encounter
--- OUTSIDE RECORDS SUMMARY | 2024-07-12 19:35 | XMS_ITS | Encounter Summary ---
Author Organization [facility] Address [address] [facility] [place] [address] [place] [address] Care Team Providers Care Pelt Shearer Name Role Phone Jared Abrams MD Primary Care Provider [phone] Encounter Details Date Type Department Care Team (Late Contact Info) Description 05/17/2004 Abstract [facility] CONVERSION 9515 [place] [address] Scar Diaz MD [address] [place] [address] Social History Tobacco Use Types Packs/Day Years [...] (Late Contact Info) Description 08/03/2024 2:00 PM WIRE GALVANIZER Appointment [facility] Day [facility] [address] [place], [place] [phone] Josué Cook MD [address] [facility] 8 [place] [address] documented as of this encounter Visit Diagnoses Not on filedocumented in this encounter Care Teams Pelt Shearer Relationship Specialty Start Date End Date Jared Abrams MD PCP - General 08/28/11 07/16/22 documented as of this encounter
--- OUTSIDE RECORDS SUMMARY | 2024-07-12 19:35 | XMS_ITS | Encounter Summary ---
Author Organization [facility] Address [address] [facility] [address] [place] [address] Care Team Providers Care Director Traffic And Planning Name Role Phone Jared Abrams MD Primary Care Provider [phone] Encounter Details Date Type Department Care Team (Late Contact Info) Description 07/25/2004 Abstract [facility] CONVERSION [address] [place] [address] Jared Abrams MD 1212 [place] [address] Social History Tobacco Use Types Packs/Day Years [...] (Late Contact Info) Description 08/03/2024 2:00 PM WATER TREATMENT PLANT SUPERVISOR Appointment [facility] One Day Services [address] [place] [address] Josué Cook MD [address] [place] [address] documented as of this encounter Visit Diagnoses Not on filedocumented in this encounter Care Teams Director Traffic And Planning Relationship Specialty Start Date End Date Jared Abrams MD PCP - General 08/28/11 07/16/22 documented as of this encounter
--- OUTSIDE RECORDS SUMMARY | 2024-07-12 19:35 | XMS_ITS | Encounter Summary ---
Author Organization [facility] Address [address] [facility] [place] [place] [address] [place] [address] Care Team Providers Care Credit Analyst Name Role Phone Jared Abrams MD Primary Care Provider [phone] Encounter Details Date Type Department Care Team (Late Contact Info) Description 11/17/2003 Abstract [facility] CONVERSION 9515 [place] [address] Scar Diaz MD [address] [place] [address] Social History Tobacco Use Types Packs/Day Years [...] (Late Contact Info) Description 08/03/2024 2:00 PM TUBE BLOWER Appointment [facility] Day [facility] [address] [place], [place] [phone] Josué Cook MD 49[address] [facility] 8 [place] [address] documented as of this encounter Visit Diagnoses Not on filedocumented in this encounter Care Teams Credit Analyst Relationship Specialty Start Date End Date Jared Abrams MD PCP - General 08/28/11 07/16/22 documented as of this encounter
--- OUTSIDE RECORDS SUMMARY | 2024-07-12 19:35 | XMS_ITS | Encounter Summary ---
Author Organization [facility] Address [address] [facility] [place] [address] [place] [address] Care Team Providers Care Pattern Maker Programer Name Role Phone Jared Abrams MD Primary Care Provider [phone] Encounter Details Date Type Department Care Team (Late Contact Info) Description 12/25/2004 Abstract [facility] CONVERSION [address] [place] [address] Scar Diaz MD [address] [place] [address] Social History Tobacco Use Types Packs/Day Years [...] (Late Contact Info) Description 08/03/2024 2:00 PM CARTON FILLING MACHINE OPERATOR Appointment [facility] One Day Services [address] [place] [address] Josué Cook MD [address] [place] [address] 8 [place] [address] documented as of this encounter Visit Diagnoses Not on filedocumented in this encounter Care Teams Pattern Maker Programer Relationship Specialty Start Date End Date Jared Abrams MD PCP - General 08/28/11 07/16/22 documented as of this encounter
--- OUTSIDE RECORDS SUMMARY | 2024-07-12 19:35 | XMS_ITS | Encounter Summary ---
Author Organization [facility] Address [address] [facility] [address] [place] [address] Care Team Providers Care Manager Erp Name Role Phone Jared Abrams MD Primary Care Provider [phone] Encounter Details Date Type Department Care Team (Late st Contact Info) Description 10/01/2012 Abstract [facility] [address] [place] [address] Jared Abrams MD 1212 [place] [address] Social History Tobacco Use Types Packs/Day Years [...] st Contact Info) Description 08/03/2024 2:00 PM MEDICAL REVIEW COORDINATOR Appointment [facility] One Day Services [address] [place] [address] Josué Cook MD [address] [place] [address] documented as of this encounter Visit Diagnoses Diagnosis Essential hypertension Unspecified essential hypertension documented in this encounter Care Teams Manager Erp Relationship Specialty Start Date End Date Jared Abrams MD PCP - General 08/28/11 07/16/22 documented as of this encounter
--- OUTSIDE RECORDS SUMMARY | 2024-07-12 19:35 | XMS_ITS | Encounter Summary ---
Author Organization [facility] Address [address] [facility] [address] [place] [address] Care Team Providers Care Drug Enforcement Agent Name Role Phone Jared Abrams MD Primary Care Provider [phone] Encounter Details Date Type Department Care Team (Late Contact Info) Description 09/14/2007 Abstract [facility] CONVERSION [address] [place] [address] Jared Abrams MD 1212 [place] [address] Social History Tobacco Use Types Packs/Day Years [...] (Late Contact Info) Description 08/03/2024 2:00 PM WASHTUB WORKER Appointment [facility] One Day Services [address] [place] [address] Josué Cook MD [address] [place] [address] documented as of this encounter Visit Diagnoses Not on filedocumented in this encounter Care Teams Drug Enforcement Agent Relationship Specialty Start Date End Date Jared Abrams MD PCP - General 08/28/11 07/16/22 documented as of this encounter
--- OUTSIDE RECORDS SUMMARY | 2024-07-12 19:35 | XMS_ITS | Encounter Summary ---
Author Organization [facility] Address [address] [facility] [place] [address] [place] [address] Care Team Providers Care Topographical Engineer Name Role Phone Jared Abrams MD Primary Care Provider [phone] Encounter Details Date Type Department Care Team (Latest Contact Info) Description 12/23/2019 2:45 PM CDT - 12/23/2019 11:59 PM CDT Hospital Encounter [facility] Laboratory [address] [place] [address] Jared Abrams MD 12[address] [place], [place] [phone] Discharge Disposition: Home or Self Care (Routine [...] st Contact Info) Description 08/03/2024 2:00 PM PARTS CLERK PLANT MAINTENANCE Appointment [facility] One Day Services [address] [place] [address] Josué Cook MD [address] [address] documented as of this encounter Procedures Procedure Name Priority Date/Time Associated Diagnosis Comments HC CLOSTRIDUM DIFFICILE Routine 12/23/2019 2:50 PM CDT Diarrhea of presumed infectious origin HC OVA & PARASITE W/STAIN-90 Routine 12/23/2019 2:50 PM CDT Diarrhea of presumed infectious origin HC STOOL CULTURE OTH SRC Routine 12/23/2019 2:49 PM CDT Diarrhea of presumed infectious origin documented in this encounter Results * CLOSTRIDIUM DIFFICILE (12/23/2019 2:50 PM CDT) MOLECULAR ASSAY NEGATIVE NEGATIVE 12/23/2019 4:15 PM CDT [facility] STOOL SPECIMEN / Unknown 12/23/2019 2:50 PM CDT Jared Abrams MD BODY FLUIDS AND STOOLS ORDERAB LES Final Result [facility] [address] [place] [address], [place] [phone] * O&P CONC&SMEAR TO REF LAB (12/23/2019 2:50 PM CDT) Pathologist [facility] SPECIMEN SOURCE STOOL 0 2:47 PM CDT [facility] O & P EXAMINATION (STOOL) REPORT 12/28/2019 4:36 PM CDT [facility] Comment: Ova and Parasites, Concentrate and Permanent Smear SOURCE : STOOL Test not performed. Transport device is not acceptable for test requested. Test Performed by [facility], [facility], [address] [place] [address] Gamal Gao M.D., Ph.D., Director of Laboratories , CLIA [id number] STOOL SPECIMEN / Unknown 12/23/2019 2:50 PM CDT Jared Abrams MD MICROBIOLOGY - GENERAL ORDERAB LES Final Result [facility] [address] [place] [address], [place] [phone] [facility] [address] [place] [address], [place] [phone] * Stool Culture (12/23/2019 2:49 PM CDT) SPEC DESCRIPTION STOOL 12/23/2019 2:47 PM CDT [facility] SPECIAL REQUESTS NO SPECIAL REQUEST 12/23/2019 2:47 PM CDT [facility] CULTURE RESULT NEGATIVE FOR SHIGA TOXIN 1 AND 2 12/29/2019 10:46 AM CDT [facility] CULTURE RESULT NO ENTERIC PATHOGENS ISOLATED 12/29/2019 10:46 AM CDT [facility] CULTURE RESULT NOTE: STOOL CULTURES ARE ROUTINELY SCREENED FOR SALMONELLA,SH IGELLA,YERSIN IA,AEROMONAS, PLESIOMONAS,C AMPYLOBA CTER,E.COLI 0157,OVERGROW THS OF S.AUREUS,YEAS T AND P. AERUGINOSA 12/29/2019 10:46 AM CDT [facility] Stool specimen (specimen) STOOL SPECIMEN / Unknown 12/23/2019 2:49 PM CDT 12/23/2019 2:50 PM CDT Jared Abrams MD MICROBIOLOGY - GENERAL ORDERAB LES Final Result [facility] [address] [place] [address], [place] [phone] [facility] [address] [place] [address], [place] [phone] documented in this encounter Visit Diagnoses Diagnosis Diarrhea of presumed infectious origin documented in this encounter Care Teams Topographical Engineer Relationship Specialty Start Date End Date Jared Abrams MD PCP - General 08/28/11 07/16/22 documented as of this encounter
--- OUTSIDE RECORDS SUMMARY | 2024-07-12 19:35 | XMS_ITS | Encounter Summary ---
Author Organization [facility] Address [address] [place] [address] [place] [address] Care Team Providers Care Technology Project Manager Name Role Phone Jared Abrams MD Primary Care Provider [phone] Encounter Details Date Type Department Care Team (Late Contact Info) Description 05/29/2004 Abstract [facility] CONVERSION [address] [facility] [place] [address] Scar Diaz MD [address] [place] [address] Social History Tobacco Use Types Packs/Day Years [...] (Late Contact Info) Description 08/03/2024 2:00 PM SUPERVISOR TELEVISION CHASSIS REPAIR Appointment [facility] One Day Services [address] [place] [address] Josué Cook MD [address] [place] [address] 8 [place] [address] documented as of this encounter Visit Diagnoses Not on filedocumented in this encounter Care Teams Technology Project Manager Relationship Specialty Start Date End Date Jared Abrams MD PCP - General 08/28/11 07/16/22 documented as of this encounter
--- OUTSIDE RECORDS SUMMARY | 2024-07-12 19:35 | XMS_ITS | Encounter Summary ---
Author Organization [facility] Address [address] [facility] [place] [address] [place] [address] Care Team Providers Care Rehabilitation Program Coordinator Name Role Phone Jared Abrams MD Primary Care Provider [phone] Encounter Details Date Type Department Care Team (Late st Contact Info) Description 04/12/2004 Abstract [facility] Conversion , Generic ConversionMD Social [...] st Contact Info) Description 08/03/2024 2:00 PM AUDITING CLERK Appointment [facility] One Day [facility] [address] [place] [address] Josué Cook MD [address] [address] documented as of this encounter Visit Diagnoses Not on filedocumented in this encounter Care Teams Rehabilitation Program Coordinator Relationship Specialty Start Date End Date Jared Abrams MD PCP - General 08/28/11 07/16/22 documented as of this encounter
--- OUTSIDE RECORDS SUMMARY | 2024-07-12 19:35 | XMS_ITS | Encounter Summary ---
Author Organization [facility] Address [address] [facility] [place] [address] [place] [address] Care Team Providers Care Finished Stock Inspector Name Role Phone Jared Abrams MD Primary Care Provider [phone] Encounter Details Date Type Department Care Team (Late st Contact Info) Description 07/18/2010 Abstract [facility] [address] [place] [address] Esperanza Crane PA 1212 [place] [address] Social History Tobacco Use Types Packs/Day Years [...] st Contact Info) Description 08/03/2024 2:00 PM LINK ASSEMBLER Appointment [facility] [address] [place] [address] Josué Cook MD [address] [place] [address] documented as of this encounter Visit Diagnoses Diagnosis Senile osteoporosis documented in this encounter Care Teams Finished Stock Inspector Relationship Specialty Start Date End Date Jared Abrams MD PCP - General 08/28/11 07/16/22 documented as of this encounter
--- OUTSIDE RECORDS SUMMARY | 2024-07-12 19:35 | XMS_ITS | Encounter Summary ---
Author Organization [facility] Address [address] [facility] [place] [address] [place] [address] Care Team Providers Care Porter Baggage Name Role Phone Jared Abrams MD Primary Care Provider [phone] Encounter Details Date Type Department Care Team (Late Contact Info) Description 08/22/2008 Abstract [facility] CONVERSION [address] [place] [address] Jared Abrams MD 1212 [place] [address] Social History Tobacco Use Types Packs/Day Years [...] (Late Contact Info) Description 08/03/2024 2:00 PM OCCUPATIONAL MEDICINE SPECIALIST Appointment [facility] One Day Services [address] [place] [address] Josué Cook MD [address] [place] [address] documented as of this encounter Visit Diagnoses Not on filedocumented in this encounter Care Teams Porter Baggage Relationship Specialty Start Date End Date Jared Abrams MD PCP - General 08/28/11 07/16/22 documented as of this encounter
--- OUTSIDE RECORDS SUMMARY | 2024-07-12 19:35 | XMS_ITS | Encounter Summary ---
Author Organization [facility] Address [address] [facility] [place] [address] [place] [address] Care Team Providers Care Applied Psychology Teacher Name Role Phone Jared Abrams MD Primary Care Provider [phone] Encounter Details Date Type Department Care Team (Late st Contact Info) Description 07/26/2010 Abstract [facility] 9515 [place] [address] Scar Diaz MD [address] [place] [address] Social History Tobacco Use Types Packs/Day Years [...] st Contact Info) Description 08/03/2024 2:00 PM WELL LOGGING OPERATOR MUD ANALYSIS Appointment [facility] One Day Services [address] [facility] [place] [address] Josué Cook MD [address] [place] [address] 8 [place] [address] documented as of this encounter Visit Diagnoses Diagnosis History of hip joint replacement by other means documented in this encounter Care Teams Applied Psychology Teacher Relationship Specialty Start Date End Date Jared Abrams MD PCP - General 08/28/11 07/16/22 documented as of this encounter
--- OUTSIDE RECORDS SUMMARY | 2024-07-12 19:35 | XMS_ITS | Encounter Summary ---
Author Organization [facility] Address [address] [facility] [place] [address] [place] [address] Care Team Providers Care Bed Spring Maker Name Role Phone Jared Abrams MD Primary Care Provider [phone] Encounter Details Date Type Department Care Team (Late Contact Info) Description 08/19/2006 Abstract [facility] CONVERSION [address] [facility] [place] [address] Scar Diaz MD [address] [place] [address] Social History Tobacco Use Types Packs/Day Years [...] (Late Contact Info) Description 08/03/2024 2:00 PM SPRAY GUN STRIPER Appointment [facility] One Day Services [address] [place] [address] Josué Cook MD [address] [place] [address] 8 [place] [address] documented as of this encounter Visit Diagnoses Not on filedocumented in this encounter Care Teams Bed Spring Maker Relationship Specialty Start Date End Date Jared Abrams MD PCP - General 08/28/11 07/16/22 documented as of this encounter
--- OUTSIDE RECORDS SUMMARY | 2024-07-12 19:35 | XMS_ITS | Encounter Summary ---
Author Organization [facility] Address [address] [facility] [place] [address] [place] [address] Care Team Providers Care Print Buyer Name Role Phone Jared Abrams MD Primary Care Provider [phone] Encounter Details Date Type Department Care Team (Late st Contact Info) Description 01/10/2011 Abstract [facility] [address] [place] [address] David Foy, ANIMAL RIDE MANAGER [address] [place], [place] [address] Social History Tobacco Use Types Packs/Day Years [...] st Contact Info) Description 08/03/2024 2:00 PM OUTBOARD MOTORBOAT OPERATOR Appointment [facility] One Day Services [address] [place] [address] Josué Cook MD [address] [address] documented as of this encounter Visit Diagnoses Diagnosis Essential hypertension Unspecified essential hypertension documented in this encounter Care Teams Print Buyer Relationship Specialty Start Date End Date Jared Abrams MD PCP - General 08/28/11 07/16/22 documented as of this encounter
--- OUTSIDE RECORDS SUMMARY | 2024-07-12 19:35 | XMS_ITS | Encounter Summary ---
Author Organization [facility] Address [address] [facility] [place] [address] [place] [address] Care Team Providers Care Resident Services Manager Name Role Phone Jared Abrams MD Primary Care Provider [phone] Encounter Details Date Type Department Care Team (Late st Contact Info) Description 04/08/2012 Abstract [facility] [address] [place] [address] Jared Abrams MD 1212 [place] [address] Social History Tobacco Use Types Packs/Day Years [...] st Contact Info) Description 08/03/2024 2:00 PM REGRADER Appointment [facility] One Day Services [address] [place] [address] Josué Cook MD [address] [place] [address] documented as of this encounter Visit Diagnoses Diagnosis Anemia Anemia, unspecified documented in this encounter Care Teams Resident Services Manager Relationship Specialty Start Date End Date Jared Abrams MD PCP - General 08/28/11 07/16/22 documented as of this encounter
--- OUTSIDE RECORDS SUMMARY | 2024-07-12 19:35 | XMS_ITS | Encounter Summary ---
Author Organization [facility] Address [address] [facility] [place] [address] [place] [address] Care Team Providers Care Tube Pusher Name Role Phone Jared Abrams MD Primary Care Provider [phone] Encounter Details Date Type Department Care Team (Late Contact Info) Description 05/08/2004 Abstract [facility] CONVERSION [address] [facility] [place] [address] Scar Diaz MD [address] [place] [id number] Social History Tobacco Use Types Packs/Day Years [...] (Late Contact Info) Description 08/03/2024 2:00 PM SOCIAL SCIENCE ANALYST Appointment [facility] One Day Services [address] [place] [address] Josué Cook MD [address] [place] [address] 8 [place] [address] documented as of this encounter Visit Diagnoses Not on filedocumented in this encounter Care Teams Tube Pusher Relationship Specialty Start Date End Date Jared Abrams MD PCP - General 08/28/11 07/16/22 documented as of this encounter
--- OUTSIDE RECORDS SUMMARY | 2024-07-12 19:35 | XMS_ITS | Encounter Summary ---
Author Organization [facility] Address [facility] [place] [address] [place] [address] Care Team Providers Care Senior Net C Developer Name Role Phone Jared Abrams MD Primary Care Provider [phone] Encounter Details Date Type Department Care Team (Latest Contact Info) Description 07/09/2012 Abstract [facility] Medical Group Social History Tobacco Use Types Packs/Day Years [...] st Contact Info) Description 08/03/2024 2:00 PM TRAVELIFT OPERATOR Appointment [facility] One Day [facility] [address] [place] [address] Josué Cook MD [address] [address] documented as of this encounter Visit Diagnoses Not on filedocumented in this encounter Care Teams Senior Net C Developer Relationship Specialty Start Date End Date Jared Abrams MD PCP - General 08/28/11 07/16/22 documented as of this encounter
--- OUTSIDE RECORDS SUMMARY | 2024-07-12 19:35 | XMS_ITS | Encounter Summary ---
Author Organization [facility] Address [address] [facility] [place] [address] [place] [address] Care Team Providers Care Escrow Processor Name Role Phone Jared Abrams MD Primary Care Provider [phone] Encounter Details Date Type Department Care Team (Late Contact Info) Description 08/28/2011 Abstract [facility] [address] [place] [address] Andrez Cheema MD [address] [address] Social History Tobacco Use Types Packs/Day Years [...] st Contact Info) Description 08/03/2024 2:00 PM BOAT CANVAS INSTALLER Appointment [facility] One Day Services [address] [place] [address] Josué Cook MD [address] [place] [address] 8 [place] [address] documented as of this encounter Visit Diagnoses Diagnosis Dizziness and giddiness documented in this encounter Care Teams Escrow Processor Relationship Specialty Start Date End Date Jared Abrams MD PCP - General 08/28/11 07/16/22 documented as of this encounter
--- OUTSIDE RECORDS SUMMARY | 2024-07-12 19:35 | XMS_ITS | Encounter Summary ---
Author Organization [facility] Address [address] [facility] [place] [address] [place] [address] Care Team Providers Care Manager Of Training Name Role Phone Jared Abrams MD Primary Care Provider [phone] Encounter Details Date Type Department Care Team (Late st Contact Info) Description 10/14/2012 Abstract [facility] [address] [place] [address] Jared Abrams MD 1212 [place] [address] Social History Tobacco Use Types Packs/Day Years [...] st Contact Info) Description 08/03/2024 2:00 PM SCREWHEAD POLISHER Appointment [facility] One Day Services [address] [place] [address] Josué Cook MD [address] [place] [address] documented as of this encounter Visit Diagnoses Diagnosis Occlusion and stenosis of carotid artery Occlusion and stenosis of carotid artery without mention of cerebral infarction documented in this encounter Care Teams Manager Of Training Relationship Specialty Start Date End Date Jared Abrams MD PCP - General 08/28/11 07/16/22 documented as of this encounter
--- OUTSIDE RECORDS SUMMARY | 2024-07-12 19:35 | XMS_ITS | Encounter Summary ---
Author Organization [facility] Address [address] [facility] [place] [place] [address] [place] [address] Care Team Providers Care Tray Checker Name Role Phone Jared Abrams MD Primary Care Provider [phone] Servando Torre MD Primary Care Provider [phone] Encounter Details Date Type Department Care Team (Late st Contact Info) Description 09/26/2003 Abstract [facility] Clinics Conversion , Generic Conversion, Social History Tobacco Use [...] st Contact Info) Description 08/03/2024 2:00 PM CASING WORKER Appointment [facility] Day [facility] [address] [place] [address] Josué Cook MD [address] [facility] 8 [place] [address] documented as of this encounter Visit Diagnoses Not on filedocumented in this encounter Care Teams Tray Checker Relationship Specialty Start Date End Date Jared Abrams MD PCP - General 08/28/11 07/16/22 Servando Torre MD [address] [facility] [address] [place] [address] PCP - General FAMILY PRACTICE 07/17/22 documented as of this encounter
--- OUTSIDE RECORDS SUMMARY | 2024-07-12 19:35 | XMS_ITS | Encounter Summary ---
Author Organization [facility] Address [address] [facility] [place] [address] [place] [address] Care Team Providers Care Jewelry Facer Name Role Phone Jared Abrasm MD Primary Care Provider [phone] Encounter Details Date Type Department Care Team (Late Contact Info) Description 10/06/2003 Abstract [facility] CONVERSION 9515 [place] [address] , Generic Conversion, Social History Tobacco Use [...] Contact Info) Description 08/03/2024 2:00 PM SUPERVISOR WHIPPED TOPPING Appointment [facility] [address] [place] [address] Josué Cook MD [address] [address] documented as of this encounter Visit Diagnoses Not on filedocumented in this encounter Care Teams Jewelry Facer Relationship Specialty Start Date End Date Jared Abrams MD PCP - General 08/28/11 07/16/22 documented as of this encounter
--- OUTSIDE RECORDS SUMMARY | 2024-07-12 19:35 | XMS_ITS | Encounter Summary ---
Author Organization [facility] Address [address] [place] [address] [place] [address] Care Team Providers Care Bleaching Supervisor Name Role Phone Jared Abrams MD Primary Care Provider [phone] Encounter Details Date Type Department Care Team (Late Contact Info) Description 04/19/2004 Abstract [facility] CONVERSION 9515 [place] [address] Scar Diaz MD [address] [place] [address] Social History Tobacco Use Types Packs/Day Years [...] (Late Contact Info) Description 08/03/2024 2:00 PM RIVER EXPEDITION GUIDE Appointment [facility] Day [facility] [address] [place], [place] [phone] Josué Cook MD 49[address] [facility] 8 [place] [address] documented as of this encounter Visit Diagnoses Not on filedocumented in this encounter Care Teams Bleaching Supervisor Relationship Specialty Start Date End Date Jared Abrams MD PCP - General 08/28/11 07/16/22 documented as of this encounter
--- OUTSIDE RECORDS SUMMARY | 2024-07-12 19:35 | XMS_ITS | Encounter Summary ---
Author Organization [facility] Address [address] [facility] [place] [address] [place] [address] Care Team Providers Care Working Manager Name Role Phone Jared Abrams MD Primary Care Provider Encounter Details Date Type Department Care Team (Late st Contact Info) Description 10/06/2003 Abstract [facility] Clinics Conversion , Generic ConversionMD Social [...] st Contact Info) Description 08/03/2024 2:00 PM SURVEYOR CHAIN HELPER Appointment [facility] One Day [facility] [address] [place] [address] Josué Cook MD [address] [address] documented as of this encounter Visit Diagnoses Not on filedocumented in this encounter Care Teams Working Manager Relationship Specialty Start Date End Date Jared Abrams MD PCP - General 08/28/11 07/16/22 documented as of this encounter
--- OUTSIDE RECORDS SUMMARY | 2024-07-12 19:35 | XMS_ITS | Encounter Summary ---
Author Organization [facility] Address [address] [facility] [place] [address] [place] [address] Care Team Providers Care Printed Products Assembler Name Role Phone Jared Abrams MD Primary Care Provider [phone] Encounter Details Date Type Department Care Team (Late Contact Info) Description 04/30/2004 Abstract [facility] CONVERSION [address] [facility] [place] [address] Scar Diaz MD [address] [place] [id number] Social History Tobacco Use Types Packs/Day Years [...] (Late Contact Info) Description 08/03/2024 2:00 PM COMPUTER HARDWARE DESIGNER Appointment [facility] One Day Services [address] [place] [address] Josué Cook MD [address] [place] [address] 8 [place] [address] documented as of this encounter Visit Diagnoses Not on filedocumented in this encounter Care Teams Printed Products Assembler Relationship Specialty Start Date End Date Jared Abrams MD PCP - General 08/28/11 07/16/22 documented as of this encounter
--- OUTSIDE RECORDS SUMMARY | 2024-07-12 19:35 | XMS_ITS | Encounter Summary ---
Author Organization [facility] Address [address] [facility] [place] [address] [place] [address] Care Team Providers Care Ham Boner Name Role Phone Jared Abrams MD Primary Care Provider [phone] Encounter Details Date Type Department Care Team (Late Contact Info) Description 06/14/2004 Abstract [facility] CONVERSION 9515 [place] [address] Scar Diaz MD [address] [place] [address] Social History Tobacco Use Types Packs/Day Years [...] (Late Contact Info) Description 08/03/2024 2:00 PM BI REPORT DEVELOPER Appointment [facility] Day [facility] [address] [place], [place] [phone] Josué Cook MD [address] [facility] 8 [place] [address] documented as of this encounter Visit Diagnoses Not on filedocumented in this encounter Care Teams Ham Boner Relationship Specialty Start Date End Date Jared Abrams MD PCP - General 08/28/11 07/16/22 documented as of this encounter
--- OUTSIDE RECORDS SUMMARY | 2024-07-12 19:35 | XMS_ITS | Encounter Summary ---
Author Organization [facility] Address [address] [facility] [place] [address] [place] [address] Care Team Providers Care Bessemer Bottom Maker Name Role Phone Jared Abrams MD Primary Care Provider [phone] Encounter Details Date Type Department Care Team (Late st Contact Info) Description 10/21/2011 Abstract [facility] [address] [place] [address] Jared Abrams MD 1212 [place] [address] Social History Tobacco Use Types Packs/Day Years [...] st Contact Info) Description 08/03/2024 2:00 PM HOBBIES AND CRAFTS SALES REPRESENTATIVE Appointment [facility] One Day Services [address] [place] [address] Josué Cook MD [address] [place] [address] documented as of this encounter Visit Diagnoses Diagnosis Essential hypertension Unspecified essential hypertension documented in this encounter Care Teams Bessemer Bottom Maker Relationship Specialty Start Date End Date Jared Abrams MD PCP - General 08/28/11 07/16/22 documented as of this encounter
--- OUTSIDE RECORDS SUMMARY | 2024-07-12 19:35 | XMS_ITS | Encounter Summary ---
Author Organization [facility] Address [address] [facility] [place] [address] [place] [address] Care Team Providers Care Merchandising Execution Associate Name Role Phone Jared Abrams MD Primary Care Provider [phone] Encounter Details Date Type Department Care Team (Late st Contact Info) Description 04/19/[address] [facility] Clinics Conversion , Generic ConversionMD [...] st Contact Info) Description 08/03/2024 2:00 PM TOOL MAKER APPRENTICE Appointment [facility] One Day [facility] [address] [place] [address] Josué Cook MD [address] [address] documented as of this encounter Visit Diagnoses Not on filedocumented in this encounter Care Teams Merchandising Execution Associate Relationship Specialty Start Date End Date Jared Abrams MD PCP - General 08/28/11 07/16/22 documented as of this encounter
--- OUTSIDE RECORDS SUMMARY | 2024-07-12 19:35 | XMS_ITS | Encounter Summary ---
Author Organization [facility] Address [address] [facility] [place] [address] [place] [address] Care Team Providers Care Health And Physical Education Professor Name Role Phone Jared Abrams MD Primary Care Provider [phone] Encounter Details Date Type Department Care Team (Late st Contact Info) Description 06/12/2012 Abstract [facility] [address] [place] [address] Jared Abrams MD 1212 [place] [address] Social History Tobacco Use Types Packs/Day Years [...] st Contact Info) Description 08/03/2024 2:00 PM MEAT CUTTER Appointment [facility] One Day Services [address] [place] [address] Josué Cook MD [address] [place] [address] documented as of this encounter Visit Diagnoses Diagnosis Other and unspecified hyperlipidemia documented in this encounter Care Teams Health And Physical Education Professor Relationship Specialty Start Date End Date Jared Abrams MD PCP - General 08/28/11 07/16/22 documented as of this encounter
--- OUTSIDE RECORDS SUMMARY | 2024-07-12 19:35 | XMS_ITS | Encounter Summary ---
Author Organization [facility] Address [address] [place] [address] [place] [address] Care Team Providers Care Consulting Software Engineer Name Role Phone Jared Abrams MD Primary Care Provider [phone] Encounter Details Date Type Department Care Team (Late Contact Info) Description 08/14/2006 Abstract [facility] CONVERSION [address] [place] [address] David Foy, WELL DRILL OPERATOR [address] [place], [place] [phone] Social History Tobacco Use Types Packs/Day Years [...] (Late Contact Info) Description 08/03/2024 2:00 PM LAP WELDER Appointment [facility] One Day Services [address] [place] [address] Josué Cook MD [address] [address] documented as of this encounter Visit Diagnoses Not on filedocumented in this encounter Care Teams Consulting Software Engineer Relationship Specialty Start Date End Date Jared Abrams MD PCP - General 08/28/11 07/16/22 documented as of this encounter
--- OUTSIDE RECORDS SUMMARY | 2024-07-12 19:35 | XMS_ITS | Encounter Summary ---
Author Organization [facility] Address [address] [facility] [place] [address] [place] [address] Care Team Providers Care Ammunition Officer Name Role Phone Jared Abrams MD Primary Care Provider [phone] Encounter Details Date Type Department Care Team (Late Contact Info) Description 07/26/2005 Abstract [facility] CONVERSION [address] [place] [address] Jared Abrams MD 1212 [place] [address] Social History Tobacco Use Types Packs/Day Years [...] (Late Contact Info) Description 08/03/2024 2:00 PM GENERATOR OPERATOR Appointment [facility] One Day Services [address] [place] [address] Josué Cook MD [address] [place] [address] documented as of this encounter Visit Diagnoses Not on filedocumented in this encounter Care Teams Ammunition Officer Relationship Specialty Start Date End Date Jared Abrams MD PCP - General 08/28/11 07/16/22 documented as of this encounter
--- OUTSIDE RECORDS SUMMARY | 2024-07-12 19:35 | XMS_ITS | Encounter Summary ---
Author Organization [facility] Address [address] [facility] [place] [address] [place] [address] Care Team Providers Care Extension Forester Name Role Phone Jared Abrams MD Primary Care Provider [phone] Encounter Details Date Type Department Care Team (Late Contact Info) Description 03/22/2004 Abstract [facility] CONVERSION [address] [place] [address] Scar Diaz MD [address] [place] [address] Social History Tobacco Use Types Packs/Day Years [...] (Late Contact Info) Description 08/03/2024 2:00 PM REFERRAL SPECIALIST Appointment [facility] Day [facility] [address] [place], [place] [phone] Josué Cook MD 49[address] [facility] 8 [place] [address] documented as of this encounter Visit Diagnoses Not on filedocumented in this encounter Care Teams Extension Forester Relationship Specialty Start Date End Date Jared Abrams MD PCP - General 08/28/11 07/16/22 documented as of this encounter
--- OUTSIDE RECORDS SUMMARY | 2024-07-12 19:35 | XMS_ITS | Encounter Summary ---
Author Organization [facility] Address [address] [facility] [place] [address] [place] [address] Care Team Providers Care Senior Information Security Engineer Name Role Phone Jared Abrams MD Primary Care Provider [phone] Encounter Details Date Type Department Care Team (Late Contact Info) Description 09/06/2004 Abstract [facility] CONVERSION [address]15 [place] [address] Scar Diaz MD [address] [place] [address] Social History Tobacco Use Types Packs/Day Years [...] (Late Contact Info) Description 08/03/2024 2:00 PM FOSTER WINDER Appointment [facility] Day [facility] [address] [place], [place] [phone] Josué Cook MD 49[address] [facility] 8 [place] [address] documented as of this encounter Visit Diagnoses Not on filedocumented in this encounter Care Teams Senior Information Security Engineer Relationship Specialty Start Date End Date Jared Abrams MD PCP - General 08/28/11 07/16/22 documented as of this encounter
--- OUTSIDE RECORDS SUMMARY | 2024-07-12 19:35 | XMS_ITS | Encounter Summary ---
Author Organization [facility] Address [address] [facility] [place] [address] [place] [address] Care Team Providers Care Clerical Order Filler Name Role Phone Jared Abrams MD Primary Care Provider [phone] Encounter Details Date Type Department Care Team (Late Contact Info) Description 12/30/2008 Abstract [facility] CONVERSION 9515 [place] [address] Jraed Abrams MD [facility] [place] [address] Social History Tobacco Use Types Packs/Day Years [...] (Late Contact Info) Description 08/03/2024 2:00 PM LINE CLEARANCE FOREMAN Appointment [facility] Day [facility] [address] [place], [place] [address] Josué [place] [address] [place] [address] documented as of this encounter Visit Diagnoses Not on filedocumented in this encounter Care Teams Clerical Order Filler Relationship Specialty Start Date End Date Jared Abrams MD PCP - General 08/28/11 07/16/22 documented as of this encounter
--- OUTSIDE RECORDS SUMMARY | 2024-07-12 19:35 | XMS_ITS | Encounter Summary ---
Author Organization [facility] Address [address] [facility] [place] [address] [place] [address] Care Team Providers Care Boat Deckhand Name Role Phone Jared Abrams MD Primary Care Provider [phone] Encounter Details Date Type Department Care Team (Late st Contact Info) Description 01/06/2012 Abstract [facility] [address] [place] [address] Jared Abrams MD 1212 [place] [address] Social History Tobacco Use Types Packs/Day Years [...] st Contact Info) Description 08/03/2024 2:00 PM CORROSION CONTROL SPECIALIST Appointment [facility] One Day Services [address] [place] [address] Josué Cook MD [address] [place] [address] documented as of this encounter Visit Diagnoses Diagnosis Anemia Anemia, unspecified documented in this encounter Care Teams Boat Deckhand Relationship Specialty Start Date End Date Jared Abrams MD PCP - General 08/28/11 07/16/22 documented as of this encounter
--- OUTSIDE RECORDS SUMMARY | 2024-07-12 19:35 | XMS_ITS | Encounter Summary ---
Author Organization [facility] Address [address] [facility] [place] [address] [place] [address] Care Team Providers Care Chief Human Resources Officer Name Role Phone Jared Abrams MD Primary Care Provider [phone] Encounter Details Date Type Department Care Team (Late Contact Info) Description 12/19/2003 Abstract [facility] CONVERSION [address] [place] [address] Jared Abrams MD 1212 [place] [address] Social History Tobacco Use Types Packs/Day Years [...] (Late Contact Info) Description 08/03/2024 2:00 PM VICE PRESIDENT CONSULTING SERVICES Appointment [facility] One Day Services [address] [place], [place] [address] Josué Cook MD [address] [place] [address] documented as of this encounter Visit Diagnoses Not on filedocumented in this encounter Care Teams Chief Human Resources Officer Relationship Specialty Start Date End Date Jared Abrams MD PCP - General 08/28/11 07/16/22 documented as of this encounter
--- OUTSIDE RECORDS SUMMARY | 2024-07-12 19:35 | XMS_ITS | Encounter Summary ---
Author Organization [facility] Address [address] [facility] [place] [address] [place] [address] Care Team Providers Care Accounting Software Specialist Name Role Phone Jared Abrams MD Primary Care Provider [phone] Encounter Details Date Type Department Care Team (Late Contact Info) Description 12/01/2009 Abstract [facility] CONVERSION [address] [place] [address] David Foy, MUSEUM LIBRARIAN [address] [place], [place] [address] Social History Tobacco Use Types Packs/Day Years [...] (Late Contact Info) Description 08/03/2024 2:00 PM CHAIR PAD MAKER Appointment [facility] One Day Services [address] [facility] [place] [address] Josué Cook MD [address] [address] documented as of this encounter Visit Diagnoses Not on filedocumented in this encounter Care Teams Accounting Software Specialist Relationship Specialty Start Date End Date Jared Abrams MD PCP - General 08/28/11 07/16/22 documented as of this encounter
--- OUTSIDE RECORDS SUMMARY | 2024-07-12 19:36 | XMS_ITS | Encounter Summary ---
Author Organization [facility] Address [address] [facility] [place] [address] [place] [address] Care Team Providers Care Pneumatic Tube Repairer Name Role Phone Jared Abrams MD Primary Care Provider [phone] Encounter Details Date Type Department Care Team (Late Contact Info) Description 08/19/2000 Abstract [facility] CONVERSION [address]15 [place] [address] , Generic Conversion, Social History Tobacco Use [...] (Late Contact Info) Description 08/03/2024 2:00 PM HOTBED OPERATOR Appointment [facility] [address] [place] [address] Josué Cook MD [address] [address] documented as of this encounter Visit Diagnoses Not on filedocumented in this encounter Care Teams Pneumatic Tube Repairer Relationship Specialty Start Date End Date Jared Abrams MD PCP - General 08/28/11 07/16/22 documented as of this encounter
--- OUTSIDE RECORDS SUMMARY | 2024-07-12 19:36 | XMS_ITS | Encounter Summary ---
Author Organization [facility] Address [address] [facility] [place] [address] [place] [address] Care Team Providers Care Derrick Builder Name Role Phone Jared Abrams MD Primary Care Provider [phone] Encounter Details Date Type Department Care Team (Late Contact Info) Description 06/09/2000 Abstract [facility] CONVERSION [address] [place] [address] , Generic ConversionMD Social History Tobacco Use [...] (Late Contact Info) Description 08/03/2024 2:00 PM BROADCAST TRANSMITTER OPERATOR Appointment [facility] Services [address] [place] [address] Josué Cook MD [address] [address] documented as of this encounter Visit Diagnoses Not on filedocumented in this encounter Care Teams Derrick Builder Relationship Specialty Start Date End Date Jared Abrams MD PCP - General 08/28/11 07/16/22 documented as of this encounter
--- OUTSIDE RECORDS SUMMARY | 2024-07-12 19:36 | XMS_ITS | Encounter Summary ---
Author Organization [facility] Address [address] [facility] [place] [address] [place] [address] Care Team Providers Care Blood Tester Name Role Phone Jared Abrams MD Primary Care Provider [phone] Encounter Details Date Type Department Care Team (Late Contact Info) Description 07/26/1998 Abstract [facility] CONVERSION [address]15 [place] [address] , Generic Conversion, Social History Tobacco Use [...] (Late Contact Info) Description 08/03/2024 2:00 PM MOLDING CUTTER Appointment [facility] [address] [place] [address] Josué Cook MD [address] [address] documented as of this encounter Visit Diagnoses Not on filedocumented in this encounter Care Teams Blood Tester Relationship Specialty Start Date End Date Jared Abrams MD PCP - General 08/28/11 07/16/22 documented as of this encounter
--- OUTSIDE RECORDS SUMMARY | 2024-07-12 19:36 | XMS_ITS | Encounter Summary ---
Author Organization [facility] Address [address] [facility] [place] [address] [place] [address] Care Team Providers Care Programming Specialist Name Role Phone Jared Abrams MD Primary Care Provider [phone] Encounter Details Date Type Department Care Team (Late Contact Info) Description 05/09/2000 Abstract [facility] CONVERSION [address] [place] [address] , Generic ConversionMD Social History Tobacco Use [...] (Late Contact Info) Description 08/03/2024 2:00 PM ARCHITECTURAL TECHNOLOGIST Appointment [facility] Services [address] [place] [address] Josué Cook MD [address] [address] documented as of this encounter Visit Diagnoses Not on filedocumented in this encounter Care Teams Programming Specialist Relationship Specialty Start Date End Date Jared Abrams MD PCP - General 08/28/11 07/16/22 documented as of this encounter
--- OUTSIDE RECORDS SUMMARY | 2024-07-12 19:36 | XMS_ITS | Encounter Summary ---
Author Organization [facility] Address [address] [facility] [place] [address] [place] [address] Care Team Providers Care Sales Technician Name Role Phone Jared Abrams MD Primary Care Provider [phone] Encounter Details Date Type Department Care Team (Late Contact Info) Description 07/12/2003 Abstract [facility] CONVERSION [address] [place] [address] , Generic ConversionMD Social History Tobacco Use [...] Contact Info) Description 08/03/2024 2:00 PM LINE MAINTENANCE TECHNICIAN Appointment [facility] Services [address] [place] [address] Josué Cook MD [address] [address] documented as of this encounter Visit Diagnoses Not on filedocumented in this encounter Care Teams Sales Technician Relationship Specialty Start Date End Date Jared Abrams MD PCP - General 08/28/11 07/16/22 documented as of this encounter
--- OUTSIDE RECORDS SUMMARY | 2024-07-12 19:36 | XMS_ITS | Encounter Summary ---
Author Organization [facility] Address [address] [facility] [place] [address] [place] [address] Care Team Providers Care Copper Plater Name Role Phone Jared Abrams MD Primary Care Provider [phone] Encounter Details Date Type Department Care Team (Late Contact Info) Description 12/10/1993 Abstract [facility] CONVERSION [address] [place] [address] , Generic ConversionMD Social History Tobacco Use [...] (Late Contact Info) Description 08/03/2024 2:00 PM FELT HAT MELLOWING MACHINE OPERATOR Appointment [facility] Services [address] [place] [address] Josué Cook MD [address] [address] documented as of this encounter Visit Diagnoses Not on filedocumented in this encounter Care Teams Copper Plater Relationship Specialty Start Date End Date Jared Abrams MD PCP - General 08/28/11 07/16/22 documented as of this encounter
--- OUTSIDE RECORDS SUMMARY | 2024-07-12 19:36 | XMS_ITS | Encounter Summary ---
Author Organization [facility] Address [address] [facility] [place] [address] [place] [address] Care Team Providers Care Service Worker Name Role Phone Jared Abrams MD Primary Care Provider [phone] Encounter Details Date Type Department Care Team (Late st Contact Info) Description 09/22/2003 Abstract [facility] Bill Durham MD [address] [address] Social History Tobacco Use Types Packs/Day Years Used Date Smoking Tobacco: Never Assessed Comments Unknown Sex and Gender Information Value Date Recorded Sex Assigned at Not on file Legal Sex Female 4:50 PM CDT Gender Identity Not on file Sexual Orientation Not on file documented as of this encounter Progress Notes * Bill Bhatia MD - 09/22/2003 12:00 AM [facility]0 Patient Name: RADHA ALLEN Patient : [id number] Admitting Physician: DR BHATIA Admission Date: 09/22/03 Discharge Date: 09/26/03 Discharge Diagnosis: DISEASE/DISORDER MUSCULS SYSTM; HIP/FEMUR PRC 1. CLOSED FRACTURE OF NECK OF FEMUR, UNSP 2. OSTEOPOROSIS, UNSP 3. HEARING LOSS, UNSP 4. Procedures Performed: 09/22/03 - OPEN REDCTION OF FX W/INTR FIX FEMUR Consultants: DR TREVIZO OME HOSTESS documented in this encounter Plan of Treatment Upcoming Encounters Date Type Department Care Team (Late st Contact Info) Description 08/03/2024 2:00 PM WELCOME HOSTESS Appointment [facility] [address] [place] [address] Josué Cook MD [address] [address] documented as of this encounter Visit Diagnoses Not on filedocumented in this encounter Care Teams Service Worker Relationship Specialty Start Date End Date Jared Abrams MD PCP - General 08/28/11 07/16/22 documented as of this encounter
--- OUTSIDE RECORDS SUMMARY | 2024-07-12 19:36 | XMS_ITS | Encounter Summary ---
Author Organization [facility] Address [address] [facility] [place] [address] [place] [address] Care Team Providers Care Physician/Allergy/Immunology Name Role Phone Jared Abrams MD Primary Care Provider Encounter Details Date Type Department Care Team (Late Contact Info) Description 05/29/1998 Abstract [facility] CONVERSION [address] [place] [address] , Generic ConversionMD Social History Tobacco Use [...] (Late Contact Info) Description 08/03/2024 2:00 PM DIESEL INSPECTOR Appointment [facility] Services [address] [place] [address] Josué Cook MD [address] [address] documented as of this encounter Visit Diagnoses Not on filedocumented in this encounter Care Teams Physician/Allergy/Immunology Relationship Specialty Start Date End Date Jared Abrams MD PCP - General 08/28/11 07/16/22 documented as of this encounter
--- OUTSIDE RECORDS SUMMARY | 2024-07-12 19:36 | XMS_ITS | Encounter Summary ---
Author Organization [facility] Address [address] [facility] [place] [address] [place] [address] Care Team Providers Care Source Inspector Name Role Phone Jared Abrams MD Primary Care Provider [phone] Encounter Details Date Type Department Care Team (Late Contact Info) Description 08/20/2001 Abstract [facility] CONVERSION [address] [place] [address] , Generic ConversionMD Social History Tobacco Use [...] (Late Contact Info) Description 08/03/2024 2:00 PM OCC THERAPIST Appointment [facility] Services [address] [place] [address] Josué Cook MD [address] [address] documented as of this encounter Visit Diagnoses Not on filedocumented in this encounter Care Teams Source Inspector Relationship Specialty Start Date End Date Jared Abrams MD PCP - General 08/28/11 07/16/22 documented as of this encounter
--- OUTSIDE RECORDS SUMMARY | 2024-07-12 19:36 | XMS_ITS | Encounter Summary ---
Author Organization [facility] Address [address] [facility] [place] [address] [place] [address] Care Team Providers Care Single Needle Tufting Machine Operator Name Role Phone Jared Abrams MD Primary Care Provider [phone] Encounter Details Date Type Department Care Team (Late Contact Info) Description 07/15/2003 Abstract [facility] CONVERSION [address] [place] [address] , Generic Conversion, Social History Tobacco Use [...] (Late Contact Info) Description 08/03/2024 2:00 PM RETAIL ADVERTISING SALES MANAGER Appointment [facility] [address] [place] [address] Josué Cook MD [address] [address] documented as of this encounter Visit Diagnoses Not on filedocumented in this encounter Care Teams Single Needle Tufting Machine Operator Relationship Specialty Start Date End Date Jared Abrams MD PCP - General 08/28/11 07/16/22 documented as of this encounter
--- OUTSIDE RECORDS SUMMARY | 2024-07-12 19:36 | XMS_ITS | Encounter Summary ---
Author Organization [facility] Address [address] [place] [address] [place] [address] Care Team Providers Care Oracle Technical Architect Name Role Phone Jared Abrams MD Primary Care Provider [phone] Encounter Details Date Type Department Care Team (Late Contact Info) Description 11/11/2002 Abstract [facility] CONVERSION [address] [place] [address] , Generic ConversionMD Social History Tobacco Use [...] (Late Contact Info) Description 08/03/2024 2:00 PM MERCHANDISE MARKER Appointment [facility] Services [address] [place] [address] Josué Cook MD [address] [address] documented as of this encounter Visit Diagnoses Not on filedocumented in this encounter Care Teams Oracle Technical Architect Relationship Specialty Start Date End Date Jared Abrams MD PCP - General 08/28/11 07/16/22 documented as of this encounter
--- OUTSIDE RECORDS SUMMARY | 2024-07-12 19:36 | XMS_ITS | Encounter Summary ---
Author Organization [facility] Address [address] [facility] [place] [address] [place] [address] Care Team Providers Care Training Development Specialist Name Role Phone Jared Abrams MD Primary Care Provider [phone] Encounter Details Date Type Department Care Team (Late Contact Info) Description 11/24/2001 Abstract [facility] CONVERSION [address] [place] [address] , Generic ConversionMD Social History Tobacco Use [...] (Late Contact Info) Description 08/03/2024 2:00 PM PHARMACY SERVICES DIRECTOR Appointment [facility] Services [address] [place] [address] Josué Cook MD [address] [address] documented as of this encounter Visit Diagnoses Not on filedocumented in this encounter Care Teams Training Development Specialist Relationship Specialty Start Date End Date Jared Abrams MD PCP - General 08/28/11 07/16/22 documented as of this encounter
--- OUTSIDE RECORDS SUMMARY | 2024-07-12 19:36 | XMS_ITS | Encounter Summary ---
Author Organization [facility] Address [address] [facility] [place] [address] [place] [address] Care Team Providers Care Paper Coating Supervisor Name Role Phone Jared Abrams MD Primary Care Provider [phone] Encounter Details Date Type Department Care Team (Late Contact Info) Description 01/21/1995 Abstract [facility] CONVERSION [address] [place] [address] , Generic ConversionMD Social History Tobacco Use [...] (Late Contact Info) Description 08/03/2024 2:[address] [facility] Services [address] [place] [address] Josué Cook MD [address] [address] documented as of this encounter Visit Diagnoses Not on filedocumented in this encounter Care Teams Paper Coating Supervisor Relationship Specialty Start Date End Date Jared Abrams MD PCP - General 08/28/11 07/16/22 documented as of this encounter
--- OUTSIDE RECORDS SUMMARY | 2024-07-12 19:36 | XMS_ITS | Encounter Summary ---
Author Organization [facility] Address [address] [facility] [place] [address] [place] [address] Care Team Providers Care Christmas Tree Farm Crew Boss Name Role Phone Jared Abrams MD Primary Care Provider [phone] Encounter Details Date Type Department Care Team (Late Contact Info) Description 08/04/1999 Abstract [facility] CONVERSION [address] [place] [address] , Generic Conversion, Social History Tobacco Use [...] (Late Contact Info) Description 08/03/2024 2:00 PM TECHNICAL SUPPORT MANAGER Appointment [facility] [address] [place] [address] Josué Cook MD [address] [address] documented as of this encounter Visit Diagnoses Not on filedocumented in this encounter Care Teams Christmas Tree Farm Crew Boss Relationship Specialty Start Date End Date Jared Abrams MD PCP - General 08/28/11 07/16/22 documented as of this encounter
--- OUTSIDE RECORDS SUMMARY | 2024-07-12 19:36 | XMS_ITS | Encounter Summary ---
Author Organization [facility] Address [address] [facility] [place] [address] [place] [address] Care Team Providers Care China And Silverware Salesperson Name Role Phone Jared Abrams MD Primary Care Provider [phone] Encounter Details Date Type Department Care Team (Late Contact Info) Description 05/11/1996 Abstract [facility] CONVERSION [address] [place] [address] , Generic ConversionMD Social History Tobacco Use [...] (Late Contact Info) Description 08/03/2024 2:00 PM ARTIFICIAL SNOW MAKING MACHINE OPERATOR Appointment [facility] Services [address] [place] [address] Josué Cook MD [address] [address] documented as of this encounter Visit Diagnoses Not on filedocumented in this encounter Care Teams China And Silverware Salesperson Relationship Specialty Start Date End Date Jared Abrams MD PCP - General 08/28/11 07/16/22 documented as of this encounter
--- OUTSIDE RECORDS SUMMARY | 2024-07-12 19:36 | XMS_ITS | Encounter Summary ---
Author Organization [facility] Address [address] [facility] [place] [address] [place] [address] Care Team Providers Care Resaw Tailer Name Role Phone Jared Abrams MD Primary Care Provider Encounter Details Date Type Department Care Team (Late st Contact Info) Description 09/22/2003 Abstract [facility] Conversion , Generic ConversionMD Social [...] st Contact Info) Description 08/03/2024 2:00 PM WIRE STRIPPING MACHINE OPERATOR Appointment [facility] [address] [place] [address] Josué Cook MD [address] [address] documented as of this encounter Visit Diagnoses Not on filedocumented in this encounter Care Teams Resaw Tailer Relationship Specialty Start Date End Date Jared Abrams MD PCP - General 08/28/11 07/16/22 documented as of this encounter
--- OUTSIDE RECORDS SUMMARY | 2024-07-12 19:36 | XMS_ITS | Encounter Summary ---
Author Organization [facility] Address [address] [facility] [place] [address] [place] [address] Care Team Providers Care Polishing Machine Operator Helper Name Role Phone Jared Abrams MD Primary Care Provider [phone] Encounter Details Date Type Department Care Team (Late Contact Info) Description 09/22/2003 Abstract [facility] CONVERSION [address] [place] [address] Bill Bhatia MD [address] [facility] [address] [place] [address] Social History Tobacco Use Types Packs/Day [...] (Late Contact Info) Description 08/03/2024 2:00 PM MEDICAL INSTRUMENT TECHNICIAN Appointment [facility] Day [facility] [address] [place], [place] [id number] Josué Cook MD [address] [address] documented as of this encounter Visit Diagnoses Not on filedocumented in this encounter Care Teams Polishing Machine Operator Helper Relationship Specialty Start Date End Date Jared Abrams MD PCP - General 08/28/11 07/16/22 documented as of this encounter
--- OUTSIDE RECORDS SUMMARY | 2024-07-12 19:36 | XMS_ITS | Encounter Summary ---
Author Organization [facility] Address [address] [place] [address] [place] [address] Care Team Providers Care Printer Machine Name Role Phone Jared Abrams MD Primary Care Provider [phone] Encounter Details Date Type Department Care Team (Late Contact Info) Description 05/20/1997 Abstract [facility] CONVERSION [address] [place] [address] , Generic ConversionMD Social History Tobacco Use [...] (Late Contact Info) Description 08/03/2024 2:00 PM CAT SCAN TECH Appointment [facility] Services [address] [place] [address] Josué Cook MD [address] [address] documented as of this encounter Visit Diagnoses Not on filedocumented in this encounter Care Teams Printer Machine Relationship Specialty Start Date End Date Jared Abrams MD PCP - General 08/28/11 07/16/22 documented as of this encounter
--- OUTSIDE RECORDS SUMMARY | 2024-07-12 19:36 | XMS_ITS | Encounter Summary ---
Author Organization [facility] Address [address] [facility] [place] [address] [place] [address] Care Team Providers Care Wool And Pelt Grader Name Role Phone Jared Abrams MD Primary Care Provider [phone] Encounter Details Date Type Department Care Team (Late Contact Info) Description 06/05/1999 Abstract [facility] CONVERSION [address] [place] [address] , Generic ConversionMD Social History Tobacco Use [...] (Late Contact Info) Description 08/03/2024 2:00 PM TERRAZZO MECHANIC Appointment [facility] Services [address] [place] [address] Josué Cook MD [address] [address] documented as of this encounter Visit Diagnoses Not on filedocumented in this encounter Care Teams Wool And Pelt Grader Relationship Specialty Start Date End Date Jared Abrams MD PCP - General 08/28/11 07/16/22 documented as of this encounter
--- OUTSIDE RECORDS SUMMARY | 2024-07-12 19:36 | XMS_ITS | Encounter Summary ---
Author Organization [facility] Address [address] [facility] [place] [address] [place] [address] Care Team Providers Care Route Salesman And Driver Name Role Phone Jared Abrams MD Primary Care Provider [phone] Encounter Details Date Type Department Care Team (Late Contact Info) Description 08/18/2001 Abstract [facility] CONVERSION [address] [place] [address] , Generic ConversionMD Social History Tobacco Use [...] (Late Contact Info) Description 08/03/2024 2:00 PM FLAT BREAKDOWN PROCESSOR Appointment [facility] Services [address] [place] [address] Josué Cook MD [address] [address] documented as of this encounter Visit Diagnoses Not on filedocumented in this encounter Care Teams Route Salesman And Driver Relationship Specialty Start Date End Date Jared Abrams MD PCP - General 08/28/11 07/16/22 documented as of this encounter
--- OUTSIDE RECORDS SUMMARY | 2024-07-12 19:41 | XMS_ITS | Encounter Summary ---
Author Organization [facility] Healthcare Address [address] [place] [address] Care Team Providers Care District Recruiter Name Role Phone Servando Torre MD Primary Care Provider [phone]- [phone] Mariela Denton MD Unavailable +1 -[phone] Lexis Barroso OD Unavailable +1- [phone] Reason for Visit * Diagnostic Imaging (Routine) - Pending Review Specialty Diagnoses / Procedures Referred By Contac t Referred To Contact Diagnoses Accidental fall, subsequent encounter Procedures XR Spine Lumbar 2 or 3 Views XR Spine Lumbar 4 or More Views Pricilla Olguin NP [address] [place] [address] Phone: tel: fax: [facility] Medical [facility] Referral ID Status Reason Start Date Expiration Date V isits Requested Visits Authorized [id number] Pending Review 06/18/2024 07/18/2025 1 1 Encounter Details Date Type Department Care Team (Latest Contact Info) Description 06/18/2024 3:00 PM MARZIPAN MAKER Ancillary Procedure [facility] Imaging at [address] [address] Accidental fall, subsequent encounter Social History Tobacco Use Types Packs/Day Years Used Date Smoking Tobacco: Never Passive Smoke Exposure: Never Smokeless Tobacco: Never AUDIT-C Answer Date Recorded Q1: How often do you have a drink containing alcohol? Never 06/26/2023 Q2: How many drinks containi ng alcohol do you have on a typical day when you are drinking? Patient does not drink Q3: How often do you have si x or more drinks on one occasion? Never 06/26/2023 PHQ-2 Answer Date Recorded PHQ-2 Total Score (If total score is 3 or more points, staff should administer the PHQ-9) 0 04/01/2024 Personal Safety Answer Date Recorded Have you ever been in or are you currently in a harmful physical or emotional relationship or is someone making you feel afraid or unsafe? Denies 03/07/2023 Comments No Sex and Gender Information Value Date Recorded Sex Assigned at Not on file Legal Sex Female 9:30 AM MARZIPAN MAKER Gender Identity Female 04/05/2022 6:17 PM CDT Sexual Orientation Straight 04/05/2022 6: 17 PM CDT documented as of this encounter Plan of Treatment Not on file documented as of this encounter Procedures Procedure Name Priority Date/Time Associated Diagnosis Comments XR SPINE LUMBAR 2 OR 3 VIEWS Schedule SHIRA, Read SHIRA (Appt Today, Awaiting Results) 06/18/2024 3:04 PM MARZIPAN MAKER Accidental fall, subsequent encounter documented in this encounter Results * XR Spine Lumbar 2 or 3 Views (06/18/2024 3:04 PM MARZIPAN MAKER) Anatomical Region Laterality Modality Spine N/A Digital Radiogra phy 06/18/2024 5:05 PM MARZIPAN MAKER Narrative 06/18/2024 5:13 PM MARZIPAN MAKER EXAM DESCRIPTION: XR HIP LEFT 2 OR 3 VIEWS; XR SPINE LUMBAR 2 OR 3 VIEWS REASON FOR STUDY: accidental fall ?? Pt complains of lower back pain and left hip pain after falling last week. Prior left hip replacement. ? TECHNIQUE: There are 2 ??radiographic view(s) of the ??left hip . Two views lumbar spine COMPARISON: Prior exam 08/28/2023 and 10/04/2013. ??CT 03/18/2023. FINDINGS: Left hip: Again seen is a left hip hemiarthroplasty. ??No periprosthetic fracture. ??Old avulsed superior marginally greater trochanter and/or heterotopic ossification. ??No change from the 2014 exam. ??No acute periprosthetic fracture. ??Patient demonstrates prior ORIF of the more proximal femur as well with plate in screw fixation as well as cerclage wires. ??No evidence of complication. ??Distal femur not included in the field of view. ??Follow-up could be obtained only as clinically warranted. ??There is atherosclerotic change. Two views lumbar spine: There is dextroconvex scoliosis of the thoracolumbar spine no change from prior CT. There is apnw-[id number] multilevel degenerative endplate change with no acute fracture suggested. ??Moderate multilevel facet arthropathy. ??Fairly moderate multilevel disc space narrowing, more moderate to severe along the right margin at T12-L1 and L1-2 over the convexity of scoliosis. ??This is similar to the prior CT. ??Grade 1 anterolisthesis L3 on L4 and L4 on L5. New from the CT of 03/18/2023 is depression of the T11 vertebral body. ?? Margins appear smooth and sclerotic with fairly moderate disc space narrowing at T10-11. ??Findings favor an older fracture, but new from 03/18/2023. ?? Correlate clinically for any pain in this area that would suggest a more subacute to acute fracture. ??No retropulsion. ??CT could be obtained in follow-up as warranted. IMPRESSION: There is new depression of the superior endplate of T11. ??Margins are sclerotic, but smooth favoring older fracture, but new from the prior CT of 03/18/2023. ??Correlate clinically for any pain in this area that would suggest a more acute or subacute fracture. ??No retropulsion. ??Correlate clinically. ?? CT could be obtained in follow-up as warranted. Levoconvex scoliosis thoracolumbar spine with moderate multilevel spondylosis as above. ?? Again seen is left hip hemiarthroplasty with no radiographic evidence of complication. Prior ORIF more proximal left femur with no radiographic evidence of complication. ??The plate and cerclage wires overlap the level of the distal medullary stem. ??No change from prior. No acute fracture. Distal femur not included in the field of view. ??Follow-up could be obtained only as clinically warranted. THIS IS AN ELECTRONICALLY VERIFIED FINAL REPORT 06/18/2024 5:13 PM - Electronically signed by ??Teofilo Rand M.D. MJ D: ??06/18/2024 5:13 PM T: Report ID: [id number] Reading Location: ??[id number] Procedure Note Teofilo Rand MD - 06/18/2024 EXAM DESCRIPTION: XR HIP LEFT 2 OR 3 VIEWS; XR SPINE LUMBAR 2 OR 3 VIEWS REASON FOR STUDY: accidental fall Pt complains of lower back pain and left hip pain after falling last week. Prior left hip replacement. TECHNIQUE: There are 2 radiographic view(s) of the left hip . Two views lumbar spine COMPARISON: Prior exam 08/28/2023 and 10/04/2013. CT 03/18/2023. FINDINGS: Left hip: Again seen is a left hip hemiarthroplasty. No periprosthetic fracture.Old avulsed superior marginally greater trochanter and/or heterotopic ossification. No change from the 2013 exam. No acute periprosthetic fracture. Patient demonstrates prior ORIF of the more proximal femur aswell with plate in screw fixation as well as cerclage wires. No evidence of complication. Distal femur not included in the field of view. Follow-up could be obtained only as clinically warranted. There is atherosclerotic change. Two views lumbar spine: There is dextroconvex scoliosis of the thoracolumbar spine no change from prior CT. There is hcxg-rl-[id number] multilevel degenerative endplate change with no acute fracture suggested. Moderate multilevel facet arthropathy. Fairly moderate multilevel disc space narrowing, more moderate to severe alongthe right margin at T12-L1 and L1-2 over the convexity of scoliosis. This is similar to the prior CT. Grade 1 anterolisthesis L3 on L4 and L4 on L5. New from the CT of 03/18/2023 is depression of the T11 vertebral body. Margins appear smooth and sclerotic with fairly moderate disc spacenarrowing at T10-11. Findings favor an older fracture, but new from 03/18/2023. Correlate clinically for any pain in this area that would suggest a more subacute to acute fracture. No retropulsion. CT could be obtained in follow-up as warranted. IMPRESSION: There is new depression of the superior endplate of T11. Margins are sclerotic, but smooth favoring older fracture, but new from the prior CTof 03/18/2023. Correlate clinically for any pain in this area that wouldsuggest a more acute or subacute fracture. No retropulsion. Correlateclinically. CT could be obtained in follow-up as warranted. Levoconvex scoliosis thoracolumbar spine with moderate multilevelspondylosis as above. Again seen is left hip hemiarthroplasty with no radiographic evidence of complication. Prior ORIF more proximal left femur with no radiographic evidence of complication. The plate and cerclage wires overlap the level of thedistal medullary stem. No change from prior. No acute fracture. Distal femur not included in the field of view. Follow-up could beobtained only as clinically warranted. THIS IS AN ELECTRONICALLY VERIFIED FINAL REPORT 06/18/2024 5:13 PM - Electronically signed by Teofilo ZAFAR T: Report ID: [id number] Reading Location: [place] [address] Pricilla Olguin TALENT ASSISTANT IMG XR PROCEDURES Final Result documented in this encounter Visit Diagnoses Diagnosis Accidental fall, subsequent encounter documented in this encounter Care Teams District Recruiter Relationship Specialty Start Date End Date Servando Torre MD [address] [address] PCP - General Family Medicine 06/19/22 Mariela Denton MD [address] [place] [address] Referring Physician Gastroenterology 06/19/22 Lexis Barroso OD [address] [place] [address] Digital Media Coordinator 09/19/22 documented as of this encounter
--- OUTSIDE RECORDS SUMMARY | 2024-07-12 19:41 | XMS_ITS | Encounter Summary ---
Author Organization [facility] Address [address] [place] [address] Phone Care Team Providers Care Screw Remover Name Role Phone Servando Torre MD Primary Care Provider [phone]- [phone] Mariela Denton MD Unavailable +1 [phone] Lexis Barroso OD Unavailable +1- [phone] Reason for Visit * Reason Onset Date Comments Medication Problem 07/09/2024 Request For Order(s) 07/09/2024 Encounter Details Date Type Department Care Team (Late st Contact Info) Description 07/09/2024 Telephone [facility] Epilepsy [address] [facility] 6th [place] [address] [place] [address] Adria Burleson MD [address] [facility] [place] [address] Medication Problem; Request For Order(s) Social History Tobacco Use Types Packs/Day Years [...] points, staff should administer the PHQ-9) 0 07/05/2024 Personal Safety Answer Date Recorded Have you ever been in or are you currently in a harmful physical or emotional relationship or is someone making you feel afraid or unsafe? Denies 03/07/2023 Comments No Sex and Gender Information Value Date Recorded Sex Assigned at Not on file Legal Sex Female 9:30 AM SHRIMP PEELING MACHINE TENDER Gender Identity Female 04/05/2022 6:17 PM CDT Sexual Orientation Straight 04/05/2022 6: 17 PM CDT documented as of this encounter Miscellaneous Notes * Telephone Encounter - Jenny Parra CMA - 07/09/2024 8:28 AM CST Patients family was notified of no change with LTG dosing at this time. [facility] is communicating with patients family to get lab order sent to appropriate lab. Jenny MP PEELING MACHINE TENDER * Telephone Encounter - Jenny Parra CMA - 07/09/2024 8:28 AM CST ----- Message from Adria Diop MD sent at 07/08/2024 4:24 PM SHRIMP PEELING MACHINE TENDER ----- Thanks for the update From an epilepsy standpoint, I would prefer to keep her on LTG 200 mg bid It's reassuring she's seizure-free We can get a trough LTG level to make sure levels are WNL TY f ----- Message ----- From: Chelsie Francisco NP Sent: 07/08/2024 4:16 PM SHRIMP PEELING MACHINE TENDER To: Kimberly Nicolas MD; # Hi Dr. Nicolas and Dr. Anthony, I saw Ms. Allen today, daughter concerned about increased confusion, worsening memory, 2 falls, daytime sedation since stopping the rivastigmine and increasing the lamotrigine to 200 mg twice daily. Mirtazapine was also added around the same time for sleep and anxiety. She was also recently taken off BuSpar. The main issue is daytime sedation, worsening cognition and falls. Seen at [facility] for falls in ED, she had blood work and labs and was treated for a possible UTI in early May. I went ahead and stopped the mirtazapine, she lives at an assisted living, not clear if she sleeping or notthe patient denies any trouble sleeping. No seizures since March. I am reaching out to see whatyour recommendations may be, her daughter is very frustrated and would like to restart the rivastigmine for memory and change the LMT if stopping mirtazapine doesn't help. Let me know and happy to contact dtr. Thank you, Amara MP PEELING MACHINE TENDER documented in this encounter Plan of Treatment Not on file documented as of this encounter Visit Diagnoses Not on filedocumented in this encounter Care Teams Screw Remover Relationship Specialty Start Date End Date Servando Torre MD [address] [address] PCP - General Family Medicine 06/19/22 Mariela Denton MD [address] [place] [address] Referring Physician Gastroenterology 06/19/22 Lexis Barroso OD [address] [place] [address] Rope Tier 09/19/22 documented as of this encounter
--- OUTSIDE RECORDS SUMMARY | 2024-07-12 19:41 | XMS_ITS | Encounter Summary ---
Author Organization [facility] Address [address] [place] [address] Phone Care Team Providers Care Channel Cementer Name Role Phone Servando Torre MD Primary Care Provider [phone] [phone] Mariela Denton MD Unavailable + -[phone] Lexis Barroso OD Unavailable +1- [phone] Encounter Details Date Type Department Care Team (Late st Contact Info) Description 06/29/2024 Orders Only [facility] [address] [facility] 6th [address] [place] [address] Kimberly Nicolas MD [address] [place] [address] Weakness generalized (Primary Dx) Social History Tobacco Use Types Packs/Day Years [...] on file Legal Sex Female 9:30 AM UNEMPLOYMENT EXAMINER Gender Identity Female 04/05/2022 6:17 PM CDT Sexual Orientation Straight 04/05/2022 6: 17 PM CDT documented as of this encounter Miscellaneous Notes * Addendum Note - Lydia Otto - 06/29/2024 11:17 AM CSTAddended by: LYDIA OTTO on: 07/02/2024 10:20 AM Modules accepted: Orders PLOYMENT EXAMINER documented in this encounter Plan of Treatment Not on file documented as of this encounter Results * (ABNORMAL) CBC with auto differential (07/02/2024 10:20 AM UNEMPLOYMENT EXAMINER) WBC 7.4 3.8 - 9.9 K/cumm Hgb 13.3 11.9 - 15.5 g/dL [facility] Hct 44.2 35.6 - 45.5 % [facility] Plt 296 150 - 400 K/cumm [facility] MPV 9.4 9.1 - 12.3 fL [facility] RBC 4.79 3.90 - 5.20 M/cumm [facility] MCV 92.3 81.3 - 96.4 fL [facility] MCH 27.8 27.1 - 33.3 pg [facility] MCHC 30.1(L) 32.3 - 35.7 g/dL [facility] RDW CV 13.0 11.1 - 14.9 % [facility] CH RDW SD 43.8 35.7 - 48.1 fL [facility] NRBC abs 0.00 0.00 - 0.01 K/cumm [facility] CH Blood 07/02/2024 10:2 0 AM UNEMPLOYMENT EXAMINER 07/02/2024 5:00 PM UNEMPLOYMENT EXAMINER us Kimberly Nicolas MD LAB BLOOD ORDERABLES Final Resu lt [facility] [address] Department [place] [address] * (ABNORMAL) Comprehensive metabolic panel (07/02/2024 10:20 AM UNEMPLOYMENT EXAMINER) Sodium 141 135 - 145 mmol/L Potassium, pl 4.1 3.3 - 4.9 mmol/L [facility] CH Chloride 103 97 - 110 mmol/L [facility] CH CO2 27 22 - 32 mmol/L [facility] CH Anion gap 11 2 - 15 mmol/L [facility] CH BUN 16 6 - 25 mg/dL [facility] CH Creatinine 0.88 0.60 - 1.10 mg/dL [facility] CH Glucose 128 70 - 199 mg/dL [facility] CH Comment: Interpretive Data Fasting glucose >/= 126 mg/dl is diagnostic for diabetes. ?? Fasting is defined as no caloric intake for at least 8 hours. Fasting glucose between 100 mg/dl to 125 mg/dl is diagnostic of prediabetes. In a patient with classic symptoms of hyperglycemia or hyperglycemic crisis, a random glucose >/= 200 mg/dl is diagnostic for diabetes. In the absence of unequivocal hyperglycemia, results should be confirmed by repeat testing. The classification and Diagnosis of Diabetes Diabetes Care 2021; 46: S19-S40. Current interpretive data was last revised 2022. Calcium 9.7 8.5 - 10.3 mg/dL [facility] Bilirubin, total 0.3 0.1 - 1.2 mg/dL [facility] CH Protein, pl 7.0 6.5 - 8.5 g/dL [facility] Albumin 4.0 3.5 - 5.0 g/dL [facility] Alk phos 180(H) 40 - 130 Units/L [facility] ALT 12 7 - 45 Units/L [facility] AST 21 10 - 45 Units/L [facility] CH Blood 07/02/2024 10:2 0 AM UNEMPLOYMENT EXAMINER 07/02/2024 5:00 PM UNEMPLOYMENT EXAMINER us Kimberly Nicolas MD LAB BLOOD ORDERABLES Final Resu lt [facility] [address] Department [place] [address] * (ABNORMAL) Urinalysis reflex to microscopic and culture Urine, clean voided (07/02/2024 10:20 AM UNEMPLOYMENT EXAMINER) Color, ur Yellow Yellow Clarity, ur Clear Clear [facility] Specific gravity, ur 1.012 1.003 - 1.030 [facility] CH pH, urine 6.5 [facility] Comment: Interpretive Data ? Urine pH is affected by diet, medications, systemic acid-base disturbances, and renal tubular function. ??pH may affect urinary stone formation. ??For example, urine pH below 6.0 may help reduce the tendency for calcium phosphate stones and pH greater than 6.0 may reduce the tendency for uric acid stone formation. Source: [facility] [employer] Current Interpretive Data was last revised on 2017 Protein, ur ql Negative Negative [facility] Glucose, ur ql Negative Negative [facility] Ketones, ur Negative Negative [facility] Bilirubin, ur Negative Negative [facility] Blood, ur Trace(A) Negative [facility] Urobilinogen, ur <2.0 <2.0 mg/dL [facility] Nitrite, ur Negative Negative [facility] Leukocyte esterase, ur 2+(A) Negative [facility] UA reflex comment Reflex to microscopic UA will be performed. [facility] Urine, clean voided 07/02/2024 10:20 AM UNEMPLOYMENT EXAMINER 07/02/2024 5:00 PM UNEMPLOYMENT EXAMINER us Kimberly Nicolas MD LAB MICROBIOLOGY - [facility] MIA LEARY Final Result Performing Organization Address City/State/[facility] Co ar Phone Number [facility] [address] Department [place] [address] documented in this encounter Visit Diagnoses Diagnosis Weakness generalized- Primary Other malaise and fatigue documented in this encounter Care Teams Channel Cementer Relationship Specialty Start Date End Date Servando Torre MD [address] [facility] [address] [place] [address] PCP - General Family Medicine 06/19/22 Mariela Denton MD [address] [place] [address] Referring Physician Gastroenterology 06/19/22 Lexis Barroso OD [address] [place] [id number] Defence Force Senior Officer 09/19/22 documented as of this encounter
--- OUTSIDE RECORDS SUMMARY | 2024-07-12 19:41 | XMS_ITS | Clinical Summary ---
Author Organization [facility] Address [address] [place] [address] Care Team Providers Care Surveyor Name Role Phone Servando Torre MD Primary Care Provider Mariela Denton MD Unavailable [phone] Lexis Barroso OD Unavailable [phone] Allergies Active Allergy Reactions Criticality Noted Date Comments Penicillins Hives High 01/30/2023 She thinks as an adult but is unsure Medications multivitamin capsule Take 1 capsule by mouth daily Active cholecalciferol (VITAMIN D-3) 2000 unit tabletIndications :Low serum vitamin D Take 1 tablet (2,000 Units total) by mouth daily Low Vitamin D level from 05/30/2022. 90 tablet 3 05/31/20 22 Active OneTouch Ultra Test stripIndications: Prediabetes 1 each by other route daily To check blood glucose 50 each 08/16/19 23 Active OneTouch Delica Plus Lancet 33 gauge miscIndications:P rediabetes 1 each by other route daily To check glucose with glucose monitor and strip 100 each 3 08/16/19 23 Active amLODIPine (NORVASC) 5 mg tablet Take 1 tablet (5 mg total) by mouth daily 90 tablet 1 01/15/20 23 Active ferrous sulfate ER 324 mg (65 mg iron) EC tabletIndications :Iron Deficiency Anemia Take 1 tablet (324 mg total) by mouth daily with breakfast 90 tablet 1 04/01/20 23 Active vedolizumab (ENTYVIO) 300 mg recon solnIndications:C hronic ulcerative colitis, unspecified complication (HCC) Infuse 5 mL (300 mg total) into a venous catheter every 8 (eight) weeks Infused at: [facility] ([facility] order in [facility] under 'Procedures' tab). 1 each 5 04/29/20 23 Active metFORMIN XR (GLUCOPHAGE XR) 750 mg 24 hr tablet Take 1 tablet (750 mg total) by mouth daily with breakfast 30 tablet 11 05/16/20 23 Active metoprolol tartrate (LOPRESSOR) 50 mg immediate release tablet Take 1 tablet (50 mg total) by mouth 2 (two) times a day 180 tablet 1 08/22/19 24 Active aspirin 81 mg enteric coated tablet Take 1 tablet (81 mg total) by mouth daily 90 tablet 3 08/27/19 24 2024 Active calcium citrate-vitamin D3 (Citracal + D Maximum) 315 mg-6.25 mcg (250 unit) per tablet Take 1 tablet by mouth daily 90 tablet 3 08/27/19 24 2024 Active mesalamine (APRISO) 0.375 gram 24 hr capsuleIndication s:Ulcerative Colitis Take 2 capsules by mouth in the morning and 2 capsules in the evening 120 capsule 5 10/29/19 24 Active melatonin tablet Take 1 tablet (3 mg total) by mouth 3 (three) times a week Active losartan (COZAAR) 100 mg tabletIndications :Hypertension associated with diabetes (HCC) Take 1 tablet (100 mg total) by mouth nightly 01/01/[address] (PROTONIX) 40 mg EC tabletIndications :Gastroesophageal reflux disease without esophagitis Take 1 tablet (40 mg total) by mouth nightly 01/01/20 24 Active lamoTRIgine (LaMICtal) 200 mg tablet 04/27/20 24 Active pravastatin (PRAVACHOL) 80 mg tabletIndications :Mixed diabetic hyperlipidemia associated with type 2 diabetes mellitus (HCC),Carotid stenosis, asymptomatic, bilateral Take 1 tablet (80 mg total) by mouth nightly 30 tablet 3 07/05/20 24 2024 Active rivastigmine (EXELON) 4.6 mg/[address] 4.6 mg on the skin daily 30 patch 6 07/12/20 24 2024 Active acetaminophen (acetaminophen Extra Strength) 500 mg tablet Take 1 tablet (500 mg total) by mouth every 6 (six) hours as needed 10/01/19 23 2023 Discontinued pravastatin (PRAVACHOL) 40 mg tabletIndications :Mixed diabetic hyperlipidemia associated with type 2 diabetes mellitus (HCC) Take 1 tablet (40 mg total) by mouth nightly 01/01/20 24 2023 Discontinued(R eorder) mirtazapine (REMERON) 7.5 mg tablet Take 1 tablet (7.5 mg total) by mouth nightly 30 tablet 5 05/28/20 24 2023 Discontinued busPIRone (BUSPAR) 5 mg tablet 05/28/20 24 2023 Discontinued cephalexin (KEFLEX) 500 mg capsule 06/10/20 24 2023 Discontinued pravastatin (PRAVACHOL) 80 mg tabletIndications :Mixed diabetic hyperlipidemia associated with type 2 diabetes mellitus (HCC),Carotid stenosis, asymptomatic, bilateral Take 1 tablet (80 mg total) by mouth nightly 30 tablet 3 07/05/20 24 2023 Discontinued(R eorder) Active Problems Problem Noted Date Diagnosed Date Somnolence, daytime 07/08/2024 Memory impairment 07/08/2024 Frequent falls 07/08/2024 Anxiety 07/08/2024 Cyst of anterior horn of lateral meniscus of rig ht knee 01/19/2024 Assessment & Plan (01/19/2024 3:01 PM CDT): Patient instructed to keep observing. If any redness or if it enlarges, then call for sooner appointment or re-evaluation. Will refer to general surgery for evaluation at their convenience. Dementia in other diseases c lassified elsewhere, mild, without behavioral disturbance, psychotic disturbance, mood disturbance, and anxiety 09/30/2023 Mixed diabetic hyperlipidemi a associated with type 2 diabetes mellitus 06/27/2023 Syncope 06/27/2023 Bradycardia 06/27/2023 Abnormal liver function tests 05/20/2023 Elevated liver enzymes 05/17/2023 Follow-up examination follow ing treatment with high-risk medication 05/17/2023 Localization-related symptom atic epilepsy and epileptic syndromes with complex partial seizures, not intractable, without status epilepticus 03/17/2023 At risk for falls 03/13/2023 nursing home (current) use of oral hypoglycemic fuentes gs 02/20/2023 Epilepsy, unspecified, not i ntractable, without status epilepticus 02/20/2023 Acute pulmonary edema (CMS/HCC) 01/31/2023 Overview (02/07/2023): Last Assessment & Plan: Improving. Seen on chest x-ray Unclear whether this is due to HAPE, heart failure, or CPR. Plan: -No further diuresis needed at this time. -Echo pending -Continue to monitor O2 sats and supplement to maintain sats greater than 90% -Sats improved with EZ Pap. We will continue. Multiple fractures of ribs a ssociated with chest compression and cardiopulmonary resuscitation 01/31/2023 Assessment & Plan (02/07/2023 12:33 PM CDT): Continue with current regimen for pain, well controlled. However, will switch out the Robaxin and substitute it with Tizanidine as she is noted to get more confused on the Robaxin. Discussed switching out the Oxycodone for Tramadol once finished with the Oxycodone if pain still persisting. Continues incentive spirometer use. Closed fracture of multiple ribs of left side Overview (02/07/2023): Last Assessment & Plan: 2/2 due to bystander CPR. Noted on CT Chest per below. -Management per Trauma service; multimodal pain control -I/S -If pain not controlled, consider anesthesia consult for epidural CT Chest without Contrast 1. Acute nondisplaced bilateral rib fractures. Sternum is intact. 2. Two 5 mm right lung nodules. See recommendations above. 3. A 14 mm nonspecific low-density lesion in the liver. Follow-up elective hepatic ultrasound is recommended for additional characterization. 4. Subsegmental bibasilar dependent atelectasis Elevated troponin 01/30/2023 Overview (02/07/2023): Last Assessment & Plan: Initial troponin 16 with repeat elevated at 82 in setting of bystander initiated CPR with multiple rib fracture. No ischemic changes on EKG. Denies prior cardiac history. No left-sided chest pain. PLAN: -Trend troponins -Monitor on telemetry -Echo completed 01/31. Report still pending. Liver nodule 01/30/2023 Assessment & Plan (02/07/2023 12:34 PM CDT): Incidental finding on the CT of chest, will get dedicated liver ultrasound. Cervicalgia 01/30/2023 Osteopenia 01/30/2023 Pulmonary nodules 01/30/2023 Seizure 01/30/2023 Overview (02/07/2023): Last Assessment & Plan: First time event while visiting [place]. Negative stroke alert in ED. No brain lesions seen on imaging. No toxidrome noted. Elevated lactate to 12.4 now downtrending c/w seizure presentation as well as tongue laceration. MRI brain unremarkable PLAN: -Transferred to inpatient -Neuro checks -Seizure precautions -DC telemetry. No arrhythmias noted. -Recommend outpatient Neurology follow up. Discussed with patient and daughter seizure precautions (no bathing unsupervised, no driving, no ladders, etc) Stroke Alert CT Head without Contrast 1. No CT evidence of acute intracranial hemorrhage or infarction. 2. Senescent findings as described above. Stroke Alert CTA Head Neck No large vessel occlusion, arterial dissection or hemodynamically significant stenosis identified in the head or neck. Assessment & Plan (02/07/2023 12:31 PM CDT): No additional concerns for recurrent seizure since discharge. Imaging performed appeared to rule out stroke, however per the MRI it appears she may have had a past CVA. Seizure precautions continue. Will get patient set up with Neurology, referral placed and records to be fast, should be able to see Neuro in 1-2 weeks. GERD (gastroesophageal reflux disease) 3 Overview (02/07/2023): Last Assessment & Plan: On PPI which can be continued Hypertension associated with diabetes 01/30/2023 Overview (02/07/2023): Last Assessment & Plan: Chronic, elevated bp in ED but in significant pain due to multiple rib fracture. PLAN: -continue home Rx (Norvasc 5, Lopressor 50 BID) Ulcerative colitis 01/30/2023 Overview (02/07/2023): Last Assessment & Plan: Per daughter, well controlled. 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 Lisa Allen is not up to date on screening tests. She is in need of Hepatitis B screening. She is up to date on needed preventative vaccinations. We discussed healthy lifestyle habits, educational material has been given. Medications reviewed, changes documented as per the medical record and discussed with patient along with risks vs benefits. Specific topics reviewed: drugs, ETOH, and tobacco, importance of regular dental care, importance of regular exercise, importance of varied diet, limit TV, media violence, minimize junk food, and seat belts. Return in 3 months Assessment & Plan (06/26/2023 2:02 PM SOUND ENGINEER): A(n) yearly Medicare Annual Wellness Visit has been performed today. Lisa Allen is up to date on screening tests. She is in need of None- no screening indicated at this time. She is not up to date on needed preventative vaccinations; She is in need of Covid-19 (booster). We discussed healthy lifestyle habits, educational material has been given. Medications reviewed, changes documented as per the medical record and discussed with patient along with risks vs benefits. Return in 3 months Assessment & Plan (06/23/2022 3:06 PM SOUND ENGINEER): A(n) initial Medicare Annual Wellness Visit has been performed today. Lisa Allen is not up to date on screening tests. She is in need of DEXA. She is not up to date on needed preventative vaccinations; She is in need of Tdap/Td and Pneumonia (Prevnar-13 or Pneumovax-23). Awaiting lipid panel Continuing current regimen, will hold vitamin B12 Skin tags can be removed if they are a problem Xray ordered today; possibly rotator cuff dysfunction Chronic ulcerative colitis, unspecified complica tion 06/18/2022 Overview (06/19/2022): Added automatically from request for surgery [id number] Ear ringing 03/03/2013 Asymmetrical sensorineural hearing loss 03/03/20 13 Stress fracture 07/07/2012 Arthralgia of hip 02/06/2011 Resolved Problems Problem Noted Date Diagnosed Date Resolved Date Hospital discharge follow-up 06/11/2023 08/07/2023 Assessment & Plan (06/11/2023 1:42 PM SOUND ENGINEER): I have reviewed the hospital record, medications, and relevant testing from Lisa Allen's recent admission. Complications and discharge plan have been noted, reviewed. Post-discharge testing has been ordered. Acute respiratory distress 02/07/2023 0 08/07/2023 Assessment & Plan (02/07/2023 3:36 PM CDT): Patient still needs portable oxygen concentrator, hoping the need will be less the more accumulated patient becomes to being back home. O2 at rest on RA was 97%. O2 at rest on 2L O2 was 97% However, still recommend prn use, especially with exertion. Walking test in office today showed O2 sat of 87% on RA and 97% on 2L. Prediabetes 01/30/2023 06/26/2023 Overview (02/07/2023): Last Assessment & Plan: On Metformin as outpatient, random glucose 217. No s/sx of DKA PLAN: -Lispro AC/CF -Hold Metformin given contrasted studies. -Avoid D5 IVFs -Carb controlled diet Other nonspecific abnormal f inding of lung field 01/30/2023 08/07/2023 GERD (gastroesophageal reflux disease) 09/19/2022 09/19/2023 Hyperlipidemia 09/19/2022 09/19/2023 Assessment & Plan (12/19/2022 2:10 PM CDT): Cholesterol pretty well controlled Continuing pravastati Hypertension 09/19/2022 09/19/2023 Assessment & Plan (12/19/2022 2:09 PM CDT): A1c was improved, nicely Will continue metformin, BP is borderline today Continuing amlodipine, metoprolol Hyperlipidemia, unspecified 09/19/2022 09/19/2023 Prediabetes 06/19/2022 12/19/2022 Encounters Date Type Department Care Team Description 07/12/2024 Orders Only [facility] [address] [place] [address] Chelsie Francisco NP 07/12/2024 Orders Only [facility] Primary Care at [address] [phone] Marcell Rucker MD 07/09/2024 Telephone [facility] Epilepsy [facility] 6th [place] [address] [place] [address] Adria Burleson MD Medication Problem; Request For Order(s) 07/08/2024 3:15 PM SOUND ENGINEER Office Visit [facility] [address] [place] [phone] Chelsie Francisco NP Somnolence, daytime (Primary Dx); Memory impairment; Frequent falls; Anxiety 07/05/2024 3:00 PM SOUND ENGINEER Office Visit [facility] Primary Care at [address] [phone] Servando Torre MD Encounter for Medicare annual wellness exam (Primary Dx); Mixed diabetic hyperlipidemia associated with type 2 diabetes mellitus (HCC); Hypertension associated with diabetes (HCC); Gastroesophageal reflux disease without esophagitis; At risk for falls; Carotid stenosis, asymptomatic, bilateral 07/02/2024 10:20 AM SOUND ENGINEER - 07/02/2024 11:59 PM SOUND ENGINEER Hospital Encounter [facility] [address] [place] [address] Hypertension associated with diabetes (HCC); Seizure (HCC); Weakness generalized Discharge Disposition: Discharge to home or self care 07/02/2024 10:15 AM SOUND ENGINEER Lab [facility] Outpatient Lab at [address] [phone] Encounter for Medicare annual wellness exam (Primary Dx) 06/29/2024 Orders Only [address] 6th Floor [address] [place] [phone] Kimberly Nicolas MD Weakness generalized (Primary Dx) 06/18/2024 3:00 PM SOUND ENGINEER Ancillary Procedure [facility] Imaging at [address] [phone] Accidental fall, subsequent encounter 06/18/2024 2:55 PM SOUND ENGINEER Ancillary Procedure [facility] Imaging at [address] [phone] Accidental fall, subsequent encounter 06/18/2024 2:30 PM SOUND ENGINEER Office Visit [facility] Convenient Care at [address] [phone] Pricilla Olguin NP Accidental fall, subsequent encounter (Primary Dx) 05/28/2024 Telephone [facility] Primary Care at [address] [phone] Servando Torre MD Medical Question/Miscellaneou s 05/19/2024 4:30 PM CDT Office Visit [facility] Diagnostic [place] [address] [place] [address] [address]th [place] [address] [place] [address] Kimberly Nicolas MD Vascular dementia without behavioral disturbance (HCC) (Primary Dx) 05/18/2024 Orders Only [facility] Gastroenterology [address] [facility] 12th Floor [address] [place] [phone] Ayala Mobley RN Chronic ulcerative colitis, unspecified complication (HCC) (Primary Dx); High risk medications (not anticoagulants) long-term use; Healthcare maintenance; Encounter for screening for other viral diseases 05/15/2024 Telephone [facility] Medical [facility] Convenient Care at [address] [phone] Pricilla Olguin NP 05/13/2024 12:25 PM CDT Ancillary Procedure [facility] Imaging at [address] [phone] Fall, initial encounter 05/13/2024 12:00 PM CDT Office Visit [facility] Convenient Care at [address] [phone] Mara Almendarez NP Fall, initial encounter (Primary Dx); Acute pain of right knee 05/12/2024 Nurse Triage [facility] Medical [facility] Primary Care at [address] [phone] Servando Torre MD 05/05/2024 3:45 PM CDT Office Visit [facility] Gastroenterology [address] [place] [address] 12th [address] [place] [phone] Josué Cook MD Chronic ulcerative colitis, unspecified complication (HCC) (Primary Dx) 05/05/2024 9:30 AM CDT Office Visit [facility] Epilepsy [address] [facility] 6th Floor [address] [place] [phone] Adria Burleson MD Localization-related symptomatic epilepsy and epileptic syndromes with complex partial seizures, not intractable, without status epilepticus (HCC) (Primary Dx) 04/27/2024 11:52 AM CDT - 04/27/2024 11:59 [place] [address] Localization-related symptomatic epilepsy and epileptic syndromes with complex partial seizures, not intractable, without status epilepticus (HCC) Discharge Disposition: Discharge to home or self care 04/27/2024 11:45 AM CDT Lab [facility] Medical [facility] Outpatient Lab at [address] [phone] 04/23/2024 Telephone [facility] Primary Care at [address] [phone] Servando Torre MD Medical Question/Miscellaneou s from Last 3 Months Immunizations Name Administration Dates Next Due Influenza, Quadrivalent, Hig h Dose, Preservative Free, Intrr 06/11/2023 Influenza, Trivalent, Adjuva nted, Intramuscular 05/05/2024 Influenza, Unspecified 03/27/2023(Deferr ed: Patient Refused),07/28/2022(Deferred: Patient Refused),05/06/2022,07/28/2021(Deferre d: Patient Refused) Pfizer Sars-Cov-2 Bivalent V accination (12+ YRS) 05/30/2022 Pneumococcal Conjugate Pcv20 03/27/2023 ZOSTER Recombinant 08/01/2020,05/30/2020 Surgical History Surgery Date Site/Laterality Comments PARTIAL HIP ARTHROPLASTY 07/28/2014 - 07/27/2015 Left RETINAL DETACHMENT SURGERY Right FEMUR FRACTURE SURGERY 07/28/2010 - 07/27/2011 Left COLONOSCOPY Medical History Medical History Date Comments Ulcerative colitis (HCC) 2019 Hypertension Hyperlipidemia GERD (gastroesophageal reflux disease) Diabetes mellitus (HCC) Anemia 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 Detached retina Gout Prediabetes 06/19/2022 Broken ribs 8 Syncope Seizure (HCC) Family History Medical History Relation Name Comments Alzheimer's disease Father Claus Garcia Cancer Father Claus Garcia Atrial fibrillation Mother Akilah Mccarthy Breast cancer Mother Akilah Mccarthy Stroke Mother Tariksonido Alonso Fabio afib Mother Akilah Gupta Fabio Relation Name Status Comments Father Claus Garcia Mother Akilah Mccarthy Social History Tobacco Use Types Packs/Day Years Used Date Smoking Tobacco: Never Passive Smoke Exposure: Never Smokeless Tobacco: Never Tobacco Cessation:Counseling Given: Not Answered AUDIT-C Answer Date Recorded Q1: How often [...] on file Legal Sex Female 9:30 AM SOUND ENGINEER Gender Identity Female 04/05/2022 6:17 PM CDT Sexual Orientation Straight 04/05/2022 6: 17 PM CDT Obstetrics History Last Filed Vital Signs Vital Sign Reading Time Taken Comments Blood Pressure 129/77 07/08/2024 3:11 PM SOUND ENGINEER Pulse 72 07/08/2024 3:11 PM SOUND ENGINEER Temperature 36.8 ??C (98.2 ??F) 07/08/2024 3:11 PM CS T Respiratory Rate 18 07/05/2024 3:02 PM SOUND ENGINEER Oxygen Saturation 98% 07/08/2024 3:11 PM SOUND ENGINEER Inhaled Oxygen Concentration - - Weight 65.8 kg (145 lb) 07/08/2024 3:11 PM SOUND ENGINEER Height 157.5 cm (5' 2 ) 07/08/2024 3:11 PM SOUND ENGINEER Body Mass Index 26.52 07/08/2024 3:11 PM SOUND ENGINEER Plan of Treatment Health Maintenance Due Date Last Done Comments Hepatitis B Screening 1963 Covid-19 Vaccine ( season) 2024 05/30/2022, 05/18/2021, 10/20/2020, Additional history exists Dilated Eye Exam 06/25/2024 06/25/2023, 11/29/2022 Osteoporosis Screening-Bone Density Scan 12/12/2024 12/12/2022, 12/12/2022 Hemoglobin A1C 12/31/2024 07/02/2024, 09/0 09/2023, 01/01/2024, Additional history exists Foot Exam 04/01/2025 04/01/2024, 09/0 11/2023, 12/19/2022 Albumin Creatinine Ratio, Urine 07/02/2025 07/02/2024, 03/21/2023 Lipid Panel 07/02/2025 07/02/2024, 09/0 09/2023, 09/30/2023, Additional history exists eGFR 07/02/2025 07/02/2024, 09/0 09/2023, 09/30/2023, Additional history exists Depression Screening 07/05/2025 07/05/2024, 04/01/2024, 01/19/2024, Additional history exists Fall Risk Assessment 07/05/2025 07/05/2024, 01/19/2024, 09/30/2023, Additional history exists Well Visit 65+ 07/05/2025 07/05/2024, 05/30, 06/19/2022 DTaP/Tdap/Td Vaccine (1 - Tdap) 07/27/2025 Postponed from 1956 (Insurance / Financial) Zoster Vaccine Completed 08/01/2020, 05/30/2020 Pneumococcal vaccine 65+ Completed 03/27/2023 Influenza Vaccine Completed 05/05/2024, , 05/06/2022 Procedures Procedure Name Priority Date/Time Associated Diagnosis Comments HEAD COMPUTED TOMOGRAPHY (CT) WITHOUT CONTRAST Schedule Routine, Read Routine (OP Routine) 07/11/2024 9:14 AM SOUND ENGINEER URINALYSIS, MICROSCOPIC ONLY Routine 07/02/2024 10:20 AM SOUND ENGINEER Weakness generalized EGFR Routine 07/02/2024 10:20 AM SOUND ENGINEER Weakness generalized DIFFERENTIAL AUTO Routine 07/02/2024 10: 20 AM SOUND ENGINEER Weakness generalized CBC WITH AUTO DIFFERENTIAL Routine 07/02/2024 10:20 AM SOUND ENGINEER Weakness generalized COMPREHENSIVE METABOLIC PANEL Routine 07/02/2024 10:20 AM SOUND ENGINEER Weakness generalized ALBUMIN CREATININE RATIO, URINE Routine 07/02/2024 10:20 AM SOUND ENGINEER Hypertension associated with diabetes (HCC) HEMOGLOBIN A1C Routine 07/02/2024 10:20 AM SOUND ENGINEER Hypertension associated with diabetes (HCC) LAMOTRIGINE LEVEL Routine 07/02/2024 10: 20 AM SOUND ENGINEER Seizure (HCC) LIPID PANEL Routine 07/02/2024 10:20 AM SOUND ENGINEER Hypertension associated with diabetes (HCC) URINALYSIS AND REFLEX TO MICROSCOPIC AND CULTURE Routine 07/02/2024 10:20 AM SOUND ENGINEER Weakness generalized XR SPINE LUMBAR 2 OR 3 VIEWS Schedule SHIRA, Read SHIRA (Appt Today, Awaiting Results) 06/18/2024 3:04 PM SOUND ENGINEER Accidental fall, subsequent encounter XR HIP LEFT 2 OR 3 VIEWS Schedule SHIRA, Read SHRIA (Appt Today, Awaiting Results) 06/18/2024 3:04 PM SOUND ENGINEER Accidental fall, subsequent encounter XR KNEE RIGHT 4 OR MORE VIEWS Schedule SHIRA, Read SHIRA (Appt Today, Awaiting Results) 05/13/2024 12:31 PM CDT Fall, initial encounter LAMOTRIGINE LEVEL Routine 04/27/2024 11: 52 AM CDT Localization-relat ed symptomatic epilepsy and epileptic syndromes with complex partial seizures, not intractable, without status epilepticus (HCC) DIABETIC EYE EXAM Routine 06/25/2023 DEXA AXIAL SKELETON BONE DENSITY 1 OR MORE SITES Schedule Routine, Read Routine (OP Routine) 12/12/2022 2:33 PM CDT Screening for osteoporosis Asymptomatic menopausal state from Last 3 Months or Most Recently Relevant to Health Maintenance Results * HEAD COMPUTED TOMOGRAPHY (CT) WITHOUT CONTRAST (07/11/2024 9:14 AM SOUND ENGINEER) Anatomical Region Laterality Modality N/A Computed Tomogra phy us Marcell Rucker MD IMG CT PROCEDURES Final Result * eGFR (07/02/2024 10:20 AM SOUND ENGINEER) eGFR 66 >=60 mL/min/1. 73 m2 Comment: Interpretive Data Reference Interval Normal ?>/= 90 mL/min/1.73m2 Mildly decreased* ? 60 - 89 mL/min/1.73m2 Mildly to moderately decreased ?45 - 59 mL/min/1.73m2 Moderately to severely decreased ??30 - 44 mL/min/1.73m2 Severely decreased ?15 - 29 mL/min/1.73m2 Kidney Failure ?< 15 ??mL/min/1.73m2 *Relative to young adult level Estimated glomerular filtration rate is determined by the 2020 CKD-EPI equation recommended by the National Kidney Foundation (A Unifying Approach to GFR Estimation: Recommendations of the NKF-ASK Task Force on Reassessing the Inclusion of Race in Diagnosing Kidney Disease, JASN 2020). The CKD-EPI equation should not be used for patients with unstable renal function and has not been validated in children and those over 70. Current interpretive data was last reviewed 2021. Blood 07/02/2024 10:2 0 AM SOUND ENGINEER 07/02/2024 5:35 PM SOUND ENGINEER us Kimberly Nicolas MD LAB BLOOD ORDERABLES Final Resu lt AILEEN [id number] [place] [address] * Differential, auto (07/02/2024 10:20 AM SOUND ENGINEER) Neutrophil abs 5.1 1.5 - 6.5 K/cumm Imm gran abs 0.0 0.0 - 0.1 K/cumm [facility] Lymphocyte abs 1.4 0.8 - 3.3 K/cumm [facility] Monocyte abs 0.7 0.2 - 0.8 K/cumm [facility] Eosinophil abs 0.3 0.0 - 0.5 K/cumm [facility] Basophil abs 0.0 0.0 - 0.1 K/cumm [facility] Neutrophil pct 68.0 % [facility] Comment: Interpretive Data Percent cell count reference ranges are not reported, since discordance with absolute values may lead to misinterpretation of CBC data. Current Interpretive Data was last revised on 2017. Imm gran pct 0.5 % [facility] Comment: Interpretive Data Percent cell count reference ranges are not reported, since discordance with absolute values may lead to misinterpretation of CBC data. Current Interpretive Data was last revised on 2017. Lymphocyte pct 18.7 % [facility] Comment: Interpretive Data Percent cell count reference ranges are not reported, since discordance with absolute values may lead to misinterpretation of CBC data. Current Interpretive Data was last revised on 2017. Monocyte pct 9.0 % [facility] Comment: Interpretive Data Percent cell count reference ranges are not reported, since discordance with absolute values may lead to misinterpretation of CBC data. Current Interpretive Data was last revised on 2017. Eosinophil pct 3.4 % [facility] Comment: Interpretive Data Percent cell count reference ranges are not reported, since discordance with absolute values may lead to misinterpretation of CBC data. Current Interpretive Data was last revised on 2017. Basophil pct 0.4 % [facility] Comment: Interpretive Data Percent cell count reference ranges are not reported, since discordance with absolute values may lead to misinterpretation of CBC data. Current Interpretive Data was last revised on 2017. Blood 07/02/2024 10:2 0 AM SOUND ENGINEER 07/02/2024 5:00 PM SOUND ENGINEER us Kimberly Nicolas MD LAB BLOOD ORDERABLES Final Resu lt AILEEN [id number] [place] [address] * (ABNORMAL) Urinalysis reflex to microscopic and culture Urine, clean voided (07/02/2024 10:20 AM SOUND ENGINEER) Color, ur Yellow Yellow Clarity, ur Clear [...] tendency for uric acid stone formation. Source: [facility] [employer] Current Interpretive Data was last revised on [...] to microscopic UA will be performed. [facility] Urine, clean voided 07/02/2024 10:20 AM SOUND ENGINEER 07/02/2024 5:00 PM SOUND ENGINEER us Kimberly Nicolas MD LAB MICROBIOLOGY - GENERAL MIA LEARY Final Result AILEEN [id number] [place] [address] * (ABNORMAL) CBC with auto differential (07/02/2024 10:20 AM SOUND ENGINEER) WBC 7.4 3.8 - 9.9 K/cumm Hgb 13.3 11.9 - 15.5 g/dL [facility] CH Hct 44.2 35.6 - 45.5 % [facility] CH Plt 296 150 - 400 K/cumm [facility] MPV 9.4 9.1 - 12.3 fL [facility] RBC 4.79 3.90 - 5.20 M/cumm [facility] MCV 92.3 81.3 - 96.4 fL [facility] MCH 27.8 27.1 - 33.3 pg [facility] MCHC 30.1(L) 32.3 - 35.7 g/dL [facility] RDW CV 13.0 11.1 - 14.9 % [facility] RDW SD 43.8 35.7 - 48.1 fL [facility] NRBC abs 0.00 0.00 - 0.01 K/cumm [facility] Blood 07/02/2024 10:2 0 AM SOUND ENGINEER 07/02/2024 5:00 PM SOUND ENGINEER us Kimberly Nicolas MD LAB BLOOD ORDERABLES Final Resu lt Performing Organization Address [facility] de Phone Number AILEEN MATTHEW [address] [place] [address] * (ABNORMAL) Albumin Creatinine Ratio, Urine (07/02/2024 10:20 AM SOUND ENGINEER) Albumin Ur 45.5 mg/L Comment: Interpretive Data No reference range established. Current interpretive data was last revised 2018. Creatinine Ur 73.7 mg/dL [facility] Comment: Interpretive Data No reference range established. Current interpretive data was last revised 2018. Albumin Creatinine Ratio, Ur 62(H) 1 - 29 mg/g [facility] Urine 07/02/2024 10:2 0 AM SOUND ENGINEER 07/02/2024 5:00 PM SOUND ENGINEER us Servando Torre MD LAB URINE ORDERABLES Final Result Performing Organization Address [facility] Co de Phone Number [facility] [phone] [place] [address] * Lamotrigine level (07/02/2024 10:20 AM SOUND ENGINEER) Pathologist [facility] Lamotrigine 9.6 3.0 - 15.0 mcg/mL [place] Comment: ADDITIONAL INFORMATION This test was developed and its performance characteristics determined by [facility] in a manner consistent with CLIA requirements. This test has not been cleared or approved by the U.S. Food and Drug Administration. Test Performed by: [facility] - [facility] [address] [place] [address] [employer] Seine: Liu Davis Ph.D.; CLIA# [id number] Blood 07/02/2024 10:2 0 AM SOUND ENGINEER 07/02/2024 5:00 PM SOUND ENGINEER Servando Torre MD LAB BLOOD ORDERABLES Final Result Performing Organization Address [facility] de Phone Number AILEEN TIFF [address] [place] [address] [facility] * (ABNORMAL) Urinalysis, microscopic only (07/02/2024 10:20 AM SOUND ENGINEER) WBC, ur 6-10(A) 0 - 5 /HPF RBC, ur 3-5(A) 0 - 2 /HPF [facility] Epithelial cells, squamous, ur 1-5 0 - 5 /HPF [facility] Mucous, ur Present(A) [facility] Culture Reflex Comment Reflex conditions for urine culture (WBC >10) not met. [facility] Urine, clean voided 07/02/2024 10:20 AM SOUND ENGINEER 07/02/2024 5:00 PM SOUND ENGINEER Kimberly Nicolas MD LAB URINE ORDERABLES Final Resu lt Performing Organization Address [facility] Co de Phone Number AILEEN MATTHEW [phone] [place] [address] * (ABNORMAL) Hemoglobin A1c (07/02/2024 10:20 AM SOUND ENGINEER) Hgb A1C 6.4(H) 4.0 - 5.6 % Estimated Average Glucose 137 mg/dL [facility] Comment: The ADA recommends reporting an estimated Average Glucose (eAG) with all Hemoglobin A1c results using the equation derived from a study of 507 normal and diabetic adults. ??Minority populations were underrepresented and children were not included. ?? (Diabetes Care 31:9397-6540, 2008). ??The eAG is not equivalent to a fasting glucose. Blood 07/02/2024 10:2 0 AM SOUND ENGINEER 07/02/2024 5:00 PM SOUND ENGINEER us Servando Torre MD LAB BLOOD ORDERABLES Final Result AILEEN MATTHEW [id number] [place] [address] * (ABNORMAL) Lipid panel (07/02/2024 10:20 AM SOUND ENGINEER) Cholesterol 190 30 - 199 mg/dL Comment: Interpretive Data Ages < or = 19 years ??Acceptable: ? <170 mg/dL ??Borderline high: ??170-199 mg/dL ??High: ? >or= 200 mg/dL Ages > or = 20 years ??Desirable: ?<200 mg/dL ??Borderline high: ??200-239 mg/dL ??High: ? >or= 240 mg/dL Literature References: 1. Expert Panel on Integrated Guidelines for Cardiovascular Health and Risk Reduction in Children and Adolescents. Pediatrics 2011;128:S213 2. NCEP Expert Panel. Circulation 2004;110:227 Current Interpretive Data was last revised on 2018. Triglycerides 170(H) <=149 mg/dL [facility] MATTHEW Comment: Interpretive Data Ages < or = 9 years ??Acceptable: ? <75 mg/dL ??Borderline high: ??75-99 mg/dL ??High: ? >or= 100 mg/dL Ages 10 to 20 years ??Acceptable: ? <90 mg/dL ??Borderline high: ??90-129 mg/dL ??High: ? >or= 130 mg/dL Ages > or = 20 years ??Desirable: ?<150 mg/dL ??Borderline high: ??150-199 mg/dL ??High: ? 200-499 mg/dL ?Very high: ?? >or= 499 mg/dL Literature References: 1. Expert Panel on Integrated Guidelines for Cardiovascular Health and Risk Reduction in Children and Adolescents. Pediatrics 2011;128:S213 2. NCEP Expert Panel. Circulation 2004;110:227 Current Interpretive Data was last revised on 2018. HDL 52 >=40 mg/dL AILEEN Comment: Interpretive Data Ages < or = 19 years ??Acceptable: ? >45 mg/dL ??Borderline low: ?? 40-45 mg/dL ??Low: ? <40 mg/dL Ages > or = 20 years ??Desirable: ?>or= 60 mg/dL ??Low: ? <40 mg/dL Literature References: 1. Expert Panel on Integrated Guidelines for Cardiovascular Health and Risk Reduction in Children and Adolescents. Pediatrics 2011;128:S213 2. NCEP Expert Panel. Circulation 2004;110:227 Current Interpretive Data was last revised on 2018. LDL, calculated 108 <=129 mg/dL AILEEN Comment: Interpretive Data Ages < or = 19 years ??Acceptable: ? <110 mg/dL ??Borderline high: ??110-129 mg/dL ??High: ?>or= 130 mg/dL Ages > or = 20 years ??Optimal: ? <100 mg/dL ??Near optimal: ?100-129 mg/dL ??Borderline high: ?? 130-159 mg/dL ??High: ?>160 mg/dL Calculated using the Hope LDL-C estimating equation. This equation was implemented on 2024. Prior to this date LDL-C was estimated using the Friedewald equation. Literature References: 1. Expert Panel on Integrated Guidelines for Cardiovascular Health and Risk Reduction in Children and Adolescents. Pediatrics 2011;128:S213 2. NCEP Expert Panel. Circulation 2004;110:227 3. Jayy M et al. IFTIKHAR Cardiol. 2020 November 25;5(5):540-548. doi: 10.1001/jamacardio.2020.0013 Current Interpretive Data was last revised on 2024. Non-HDL Cholesterol 138 mg/dL [facility] Comment: Interpretive Data Ages < or = 19 years ??Acceptable: ?<120 mg/dL ??Borderline high: ??120-144 mg/dL ??High: ?>145 mg/dL Ages > or = 20 years ??When triglycerides are >200 mg/dL, Non-HDL cholesterol is a secondary target of ? therapy with treatment goals that are 30 mg/dL greater than the LDL cholesterol target. ? Literature References: 1. Expert Panel on Integrated Guidelines for Cardiovascular Health and Risk Reduction in Children and Adolescents. Pediatrics 2011;128:S213 2. NCEP Expert Panel. Circulation 2004;110:227 Current Interpretive Data was last revised on 2018. Chol/HDL ratio 4 [facility] Blood 07/02/2024 10:2 0 AM SOUND ENGINEER 07/02/2024 5:00 PM SOUND ENGINEER us Servando Torre MD LAB BLOOD ORDERABLES Final Result [facility] [id number] [place] [address] * (ABNORMAL) Comprehensive metabolic panel (07/02/2024 10:20 AM SOUND ENGINEER) Sodium 141 135 - 145 mmol/L Potassium, pl 4.1 3.3 - 4.9 mmol/L [facility] Chloride 103 97 - 110 mmol/L [facility] CO2 27 22 - 32 mmol/L [facility] Anion gap 11 2 - 15 mmol/L [facility] BUN 16 6 - 25 mg/dL [facility] Creatinine 0.88 0.60 - 1.10 mg/dL [facility] Glucose 128 70 - 199 mg/dL [facility] Comment: Interpretive Data Fasting glucose >/= 126 [...] classification and Diagnosis of Diabetes Diabetes Care 202; 46: S19-S40. Current interpretive data was last [...] [facility] CH Blood 07/02/2024 10:2 0 AM SOUND ENGINEER 07/02/2024 5:00 PM SOUND ENGINEER us Kimberly Nicolas MD LAB BLOOD ORDERABLES Final Resu lt AILEEN [address] Department [place] [address] * XR Spine Lumbar 2 or 3 Views (06/18/2024 3:04 PM SOUND ENGINEER) Anatomical Region Laterality Modality Spine N/A Digital Radiogra phy 06/18/2024 5:05 PM SOUND ENGINEER Narrative 06/18/2024 5:13 PM SOUND ENGINEER EXAM DESCRIPTION: XR HIP LEFT 2 OR [...] and/or heterotopic ossification. ??No change from the 2013 exam. ??No acute periprosthetic fracture. ??Patient demonstrates [...] no change from prior CT. There is qqsm-gh-hfuuyxza multilevel degenerative endplate change with no acute [...] D: ??06/18/2024 5:13 PM T: Report ID: [id number] Reading Location: ??[id number] Procedure Note Teofilo Rand MD - 06/18/2024 [...] and/or heterotopic ossification. No change from the 2014 exam. No acute periprosthetic fracture. Patient demonstrates [...] no change from prior CT. There is wjof-db-mbwhedjq multilevel degenerative endplate change with no acute [...] 5:13 PM - Electronically signed by Teofilo Rand M.D. MJ T: Report ID: [id number] Reading Location: [place] [address] Pricilla Olguin NP IMG XR PROCEDURES Final Result * XR Hip Left 2+ Vw (06/18/2024 3:04 PM SOUND ENGINEER) Anatomical Region Laterality Modality Lower Extremities, Hip, Pelvis Left D igital Radiography 06/18/2024 5:05 PM SOUND ENGINEER Narrative 06/18/2024 5:13 PM SOUND ENGINEER EXAM DESCRIPTION: XR HIP LEFT 2 OR [...] no change from prior CT. There is tgon-bm-ldnyjlkg multilevel degenerative endplate change with no acute [...] D: ??06/18/2024 5:13 PM T: Report ID: [id number] Reading Location: ??[id number] Procedure Note Teofilo Rand MD - 06/18/2024 [...] no change from prior CT. There is cisz-jd-yospcphf multilevel degenerative endplate change with no acute [...] 5:13 PM - Electronically signed by Teofilo Rand M.D. MJ T: Report ID: [id number] Reading Location: [place] [address] Pricilla Olguin NP IMG XR PROCEDURES Final Result * XR Knee Right 4 or More Views (05/13/2024 12:31 PM CDT) Anatomical Region Laterality Modality Lower Extremities, Knee Right Digital Radiography 05/13/2024 4:44 PM CDT Narrative 05/13/2024 4:47 PM CDT EXAM DESCRIPTION: XR KNEE RIGHT 4 OR MORE VIEWS REASON FOR STUDY: accidental fall, right knee contusion ?? Pt complains of lateral knee pain x 3 days after falling. No prior fx or surgery ?? TECHNIQUE: Four views of the right knee COMPARISON: 08/28/2023 FINDINGS: BONES/JOINTS: There is no acute fracture, malalignment or osseous abnormalities. Moderate to severe right knee osteoarthritis. ??There is heterotopic ossification at the quadriceps tendon insertion. ??Moderate knee joint effusion which is new from prior. ?? There is severe patellofemoral osteoarthritis. SOFT TISSUES: Within normal limits. ?? IMPRESSION: Moderate right knee joint effusion. No fracture. Severe patellofemoral osteoarthritis. THIS IS AN ELECTRONICALLY VERIFIED FINAL REPORT 05/13/2024 4:47 PM - Electronically signed by ??Dylan CARROLL D: ??05/13/2024 4:47 PM T: Report ID: [id number] Reading Location: ??[id number] Procedure Note Dylan Znuiga MD - 05/13/2024 EXAM DESCRIPTION: XR KNEE RIGHT 4 OR MORE VIEWS REASON FOR STUDY: accidental fall, right knee contusion Pt complains of lateral knee pain x 3 days after falling. No prior fx or surgery TECHNIQUE: Four views of the right knee COMPARISON: 08/28/2023 FINDINGS: BONES/JOINTS: There is no acute fracture, malalignment orosseous abnormalities. Moderate to severe right knee osteoarthritis. There is heterotopic ossification at the quadriceps tendon insertion. Moderateknee joint effusion which is new from prior. There is severe patellofemoral osteoarthritis. SOFT TISSUES: Within normal limits. IMPRESSION: Moderate right knee joint effusion. No fracture. Severe patellofemoral osteoarthritis. THIS IS AN ELECTRONICALLY VERIFIED FINAL REPORT 05/13/2024 4:47 PM - Electronically signed by Dylan CARROLL T: Report ID: [id number] Reading Location: [id number] Mara Almendarez [employer]IL [employer] REPAIR CARMAN IMG XR PROCEDURES Final Re sult * Lamotrigine level (04/27/2024 11:52 AM CDT) Lamotrigine 6.3 3.0 - 15.0 mcg/mL [facility] Comment: ADDITIONAL INFORMATION This test was developed and its performance characteristics determined by [facility] in a manner consistent with CLIA requirements. This test has not been cleared or approved by the U.S. Food and Drug Administration. Test Performed by: [facility] [address] [place] [address] [employer] P[employer] Seine: Liu Davis Ph.D.; CLIA# [id number] Blood 04/27/2024 11:5 2 AM CDT 04/27/2024 7:35 PM CDT Adria Diop MD LAB BLOOD OR DERABLES Final Result AILEEN MATTHEW [address] [place] [address] [facility] * Diabetic Eye Exam (06/25/2023) Historical Provider HEALTH MAINTENANCE Final Result * Dexa Axial Skeleton Bone Density 1 or 2 Site (12/12/2022 2:33 PM CDT) Anatomical Region Laterality Modality Body N/A Radiographic Keyanna ging Narrative 12/12/2022 3:00 PM CDT Patient Name: Lisa Allen Date of : 1945 Date of scan: 12/12/2022 Bone mineral density was performed on a HoloERN Discovery Densitometer. ?? Based on machine cross-calibration and precision studies the least significant changes of this densitometer is 0.024 g/cm2 at the spine, 0.020 g/cm2 at the total proximal femur, and 0.014g/cm2 at the forearm. HISTORY: This is a 77 y.o. postmenopausal female with a history of low bone mass, ulcerative colitis, and vitamin D deficiency. She reports that she has never smoked. She has never used smokeless tobacco. Currently on treatment with calcium and vitamin D and previously treated with alendronate (Fosamax). INDICATIONS: Menopause status, history of prior hip fracture, vitamin D deficiency, and history of low bone mass. FINDINGS: BONE MINERAL DENSITY OF THE LUMBAR SPINE Bone Mineral Density (BMD) of the lumbar spine was measured from L1-L4 and the average density was calculated to be 0.823 gm/cm2. This corresponds to a T-score (standard deviations from the mean of young adults) of -2.0. There is no previous study available for comparison. BONE MINERAL DENSITY OF THE PROXIMAL FEMUR Bone Mineral Density (BMD) of the right hip total was found to be 0.784 gm/cm2. This corresponds to a T-score standard deviations from the mean of young adults of -1.3. Femoral neck is 0.608 gm/cm2 with a T-score (standard deviations from the mean of young adults) of -2.2. There is no previous study available for comparison. SUMMARY: Bone mineral density shows evidence of low bone mass at the lumbar spine and proximal femur and moderately increased fracture risk (Osteopenia). ADDITIONAL COMMENTS: Postmenopausal Women and Men Over 50: Diagnostic criteria: Osteoporosis: BMD at or below -2.5 T-score; Osteopenia (low bone mass): BMD between -1.0 and -2.5 T-score. If the patient has a history of a fragility fracture, a fracture that occurred with trauma equivalent to a fall from a standing position or less, then the diagnosis is osteoporosis regardless of bone density. The history and data sections of the bone mineral density scan were prepared by Myah Lacy(Darian) ALLENT ??who is accredited by the International Society of Clinical Densitometry. The overall patient assessment and scan interpretation were performed by Josep Mathew MD ??who is certified by the International Society of Clinical Densitometry. [id number] Servando oTrre MD IMG DXA PROCEDURES Final Re sult from Last 3 Months or Most Recently Relevant to Health Maintenance Insurance MEDICARE [facility] MEDICARE SUPPLEMENT BLUE CROSS MEDICARE SUPPLEMENT MEDICARE ON LICENSE OF [facility] MEDICARE ON LICENSE OF [facility] Advance Directives For more information, please contact: [phone] * Full Code (Latest Code Status on File) Date Activated Date Inactivated Comments 11/29/2022 9:30 AM 11/29/2022 3:28 PM Care Teams Surveyor Relationship Specialty Start Date End Date Servando Torre MD LUCY [address] [address] PCP - General Family Medicine 06/19/22 Mariela Denton MD [address] [place] [address] Referring Physician Gastroenterology 06/19/22 Lexis Barroso OD [address] [place] [id number] Miniature Set Constructor 09/19/22
--- OUTSIDE RECORDS SUMMARY | 2024-07-12 19:41 | XMS_ITS | Referral Summary ---
Author Organization [facility] Address [address] [place] [address] Care Team Providers Care Mining Speculator Name Role Phone Servando Torre MD Primary Care Provider Mariela Denton MD Unavailable [phone] Lexis Barroso OD Unavailable [phone] Encounters Date Type Department Care Team Description 07/12/2024 Orders Only [address] Floor [address] [place] [phone] Chelsie Francisco NP 07/12/2024 Orders Only [facility] Medical [facility] Primary Care at [address] [phone] Marcell Rucker MD 07/09/2024 Telephone [facility] Epilepsy [address] [facility] 6th [place] [address] Adria Burleson MD Medication Problem; Request For Order(s) 07/08/2024 3:15 PM TREATING ENGINEER Office Visit [facility] [address] [place] [phone] Chelsie Francisco NP Somnolence, daytime (Primary Dx); Memory impairment; Frequent falls; Anxiety 07/05/2024 3:00 PM TREATING ENGINEER Office Visit [facility] Medical Group Primary Care at [address] [phone] Servando Torre MD Encounter for Medicare annual wellness exam (Primary Dx); Mixed diabetic hyperlipidemia associated with type 2 diabetes mellitus (HCC); Hypertension associated with diabetes (HCC); Gastroesophageal reflux disease without esophagitis; At risk for falls; Carotid stenosis, asymptomatic, bilateral 07/02/2024 10:20 AM TREATING ENGINEER - 07/02/2024 11:59 PM TREATING ENGINEER Hospital Encounter [address] [address] Hypertension associated with diabetes (HCC); Seizure (HCC); Weakness generalized Discharge Disposition: Discharge to home or self care 07/02/2024 10:15 AM TREATING ENGINEER Lab [facility] Medical Group Outpatient Lab at [address] [phone] Encounter for Medicare annual wellness exam (Primary Dx) 06/29/2024 Orders Only [address] 6th Floor [address] [place] [phone] Kimberly Nicolas MD Weakness generalized (Primary Dx) 06/18/2024 3:00 PM TREATING ENGINEER Ancillary Procedure [facility] Medical Group Imaging at [address] [phone] Accidental fall, subsequent encounter 06/18/2024 2:55 PM TREATING ENGINEER Ancillary Procedure [facility] Medical Group Imaging at [address] [phone] Accidental fall, subsequent encounter 06/18/2024 2:30 PM TREATING ENGINEER Office Visit [facility] Medical Group Convenient Care at [address] [phone] Pricilla Olguin NP Accidental fall, subsequent encounter (Primary Dx) 05/28/2024 Telephone [facility] Medical Group Primary Care at [address] [phone] Servando Torre MD Medical Question/Miscellaneou s 05/19/2024 4:30 PM CDT Office Visit [address] 6th Floor [address] [place] [address] Kimberly Nicolas MD Vascular dementia without behavioral disturbance (HCC) (Primary Dx) 05/18/2024 Orders Only [facility] Gastroenterology [address] [place] [address] 12th Floor [address] [place] [address] Ayala Mobley RN Chronic ulcerative colitis, unspecified complication (HCC) (Primary Dx); High risk medications (not anticoagulants) long-term use; Healthcare maintenance; Encounter for screening for other viral diseases 05/15/2024 Telephone [facility] Convenient Care at [address] [phone] Pricilla Olguin NP 05/13/2024 12:25 PM CDT Ancillary Procedure [facility] Imaging at [address] [phone] Fall, initial encounter 05/13/2024 12:00 PM CDT Office Visit [facility] Convenient Care at [address] [phone] Mara Almendarez NP Fall, initial encounter (Primary Dx); Acute pain of right knee 05/12/2024 Nurse Triage [facility] Primary Care at [address] [phone] Servando Torre MD 05/05/2024 9:30 AM CDT Office Visit [facility] Epilepsy [address] [place] [address] 6th Floor [address] [place] [address] Adria Burleson MD Localization-related symptomatic epilepsy and epileptic syndromes with complex partial seizures, not intractable, without status epilepticus (HCC) (Primary Dx) 05/05/2024 3:45 PM CDT Office Visit [facility] Gastroenterology [address] [place] [address] 12th Floor [address] [place] [address] Josué Cook MD Chronic ulcerative colitis, unspecified complication (HCC) (Primary Dx) 04/27/2024 11:52 AM CDT - 04/27/2024 11:59 PM CDT Hospital Encounter [facility] [address] [place] [address] Localization-related symptomatic epilepsy and epileptic syndromes with complex partial seizures, not intractable, without status epilepticus (HCC) Discharge Disposition: Discharge to home or self care 04/27/2024 11:45 AM CDT Lab [facility] Medical [facility] Outpatient Lab at [address] [phone] 04/23/2024 Telephone [facility] Medical Group Primary Care at [address] [phone] Servando Torre MD Medical Question/Miscellaneou s from Last 3 Months Allergies Active Allergy Reactions Criticality Noted Date [...] catheter every 8 (eight) weeks Infused at: [facility] ([facility] order in Epic under 'Procedures' tab). 1 each 5 04/29/20 Active metFORMIN XR (GLUCOPHAGE XR) 750 mg 24 hr tablet Take 1 tablet (750 mg total) by mouth daily with breakfast 30 tablet 11 05/16/20 Active metoprolol tartrate (LOPRESSOR) 50 mg immediate [...] epilepticus 03/17/2023 At risk for falls 03/13/2023 USP (current) use of oral hypoglycemic fuentes gs [...] 05/29 Assessment & Plan (07/05/2024 3:20 PM TREATING ENGINEER): A(n) yearly Medicare Annual Wellness Visit [...] months Assessment & Plan (06/26/2023 2:02 PM TREATING ENGINEER): A(n) yearly Medicare Annual Wellness Visit [...] months Assessment & Plan (06/23/2022 3:06 PM TREATING ENGINEER): A(n) initial Medicare Annual Wellness Visit [...] (06/19/2022): Added automatically from request for surgery [id number] Ear ringing 03/03/2013 Asymmetrical sensorineural hearing loss 03/03/20 13 Stress fracture 07/07/2012 Arthralgia of hip 02/06/2011 Resolved Problems Problem Noted Date Diagnosed Date Resolved Date Hospital discharge follow-up 06/11/2023 08/07/2023 Assessment & Plan (06/11/2023 1:42 PM TREATING ENGINEER): I have reviewed the hospital record, [...] Hyperlipidemia, unspecified 09/19/2022 09/19/2023 Prediabetes 06/19/2022 12/19/2022 Immunizations Name Administration Dates Next Due Influenza, Quadrivalent, Hig h Dose, Preservative Free, Intrr 06/11/2023 Influenza, Trivalent, Adjuva nted, Intramuscular 05/05/2024 Influenza, Unspecified 03/27/2023(Deferr ed: Patient Refused),07/28/2022(Deferred: Patient Refused),05/06/2022,07/28/2021(Deferre d: Patient Refused) Pfizer Sars-Cov-2 Bivalent V accination (12+ YRS) 05/30/2022 Pneumococcal Conjugate Pcv20 03/27/2023 ZOSTER Recombinant 08/01/2020,05/30/2020 Social History Tobacco Use Types Packs/Day Years [...] on file Legal Sex Female 9:30 AM TREATING ENGINEER Gender Identity Female 04/05/2022 6:17 PM CDT Sexual Orientation Straight 04/05/2022 6: 17 PM CDT Last Filed Vital Signs Vital Sign Reading Time Taken Comments Blood Pressure 129/77 07/08/2024 3:11 PM TREATING ENGINEER Pulse 72 07/08/2024 3:11 PM TREATING ENGINEER Temperature 36.8 ??C (98.2 ??F) 07/08/2024 3:11 PM CS T Respiratory Rate 18 07/05/2024 3:02 PM TREATING ENGINEER Oxygen Saturation 98% 07/08/2024 3:11 PM TREATING ENGINEER Inhaled Oxygen Concentration - - Weight 65.8 kg (145 lb) 07/08/2024 3:11 PM TREATING ENGINEER Height 157.5 cm (5' 2 ) 07/08/2024 3:11 PM TREATING ENGINEER Body Mass Index 26.52 07/08/2024 3:11 PM TREATING ENGINEER Plan of Treatment Not on file Procedures Procedure Name Priority Date/Time Associated Diagnosis Comments HEAD COMPUTED TOMOGRAPHY (CT) WITHOUT CONTRAST Schedule Routine, Read Routine (OP Routine) 07/11/2024 9:14 AM TREATING ENGINEER URINALYSIS, MICROSCOPIC ONLY Routine 07/02/2024 10:20 AM TREATING ENGINEER Weakness generalized EGFR Routine 07/02/2024 10:20 AM TREATING ENGINEER Weakness generalized DIFFERENTIAL AUTO Routine 07/02/2024 10: 20 AM TREATING ENGINEER Weakness generalized CBC WITH AUTO DIFFERENTIAL Routine 07/02/2024 10:20 AM TREATING ENGINEER Weakness generalized COMPREHENSIVE METABOLIC PANEL Routine 07/02/2024 10:20 AM TREATING ENGINEER Weakness generalized ALBUMIN CREATININE RATIO, URINE Routine 07/02/2024 10:20 AM TREATING ENGINEER Hypertension associated with diabetes (HCC) HEMOGLOBIN A1C Routine 07/02/2024 10:20 AM TREATING ENGINEER Hypertension associated with diabetes (HCC) LAMOTRIGINE LEVEL Routine 07/02/2024 10: 20 AM TREATING ENGINEER Seizure (HCC) LIPID PANEL Routine 07/02/2024 10:20 AM TREATING ENGINEER Hypertension associated with diabetes (HCC) URINALYSIS AND REFLEX TO MICROSCOPIC AND CULTURE Routine 07/02/2024 10:20 AM TREATING ENGINEER Weakness generalized XR SPINE LUMBAR 2 OR 3 VIEWS Schedule SHIRA, Read SHIRA (Appt Today, Awaiting Results) 06/18/2024 3:04 PM TREATING ENGINEER Accidental fall, subsequent encounter XR HIP LEFT 2 OR 3 VIEWS Schedule SHIRA, Read SHIRA (Appt Today, Awaiting Results) 06/18/2024 3:04 PM TREATING ENGINEER Accidental fall, subsequent encounter XR KNEE [...] TOMOGRAPHY (CT) WITHOUT CONTRAST (07/11/2024 9:14 AM TREATING ENGINEER) Anatomical Region Laterality Modality N/A Computed Tomogra phy us Marcell Rucker MD IM CT PROCEDURES Final Result * eGFR (07/02/2024 10:20 AM TREATING ENGINEER) eGFR 66 >=60 mL/min/1. 73 m2 [...] reviewed 2021. Blood 07/02/2024 10:2 0 AM TREATING ENGINEER 07/02/2024 5:35 PM TREATING ENGINEER us Kimberly Nicolas MD LAB BLOOD ORDERABLES Final Resu lt [facility] [address] Department [place] [address] * Differential, auto (07/02/2024 10:20 AM TREATING ENGINEER) Neutrophil abs 5.1 1.5 - 6.5 K/cumm Imm gran abs 0.0 0.0 - 0.1 K/cumm [facility] Lymphocyte abs 1.4 0.8 - 3.3 K/cumm [facility] Monocyte abs 0.7 0.2 - 0.8 K/cumm [facility] Eosinophil abs 0.3 0.0 - 0.5 K/cumm [facility] Basophil abs 0.0 0.0 - 0.1 K/cumm [facility] CH Neutrophil pct 68.0 % [facility] Comment: Interpretive Data Percent cell count reference ranges are not reported, since discordance with absolute values may lead to misinterpretation of CBC data. Current Interpretive Data was last revised on 2017. Imm gran pct 0.5 % [facility]ER[facility]ALI Comment: Interpretive Data Percent cell count reference ranges are not reported, since discordance with absolute values may lead to misinterpretation of CBC data. Current Interpretive Data was last revised on 2017. Lymphocyte pct 18.7 % [facility]ER[facility]ALI Comment: Interpretive Data Percent cell count reference ranges are not reported, since discordance with absolute values may lead to misinterpretation of CBC data. Current Interpretive Data was last revised on 2017. Monocyte pct 9.0 % [facility] Comment: Interpretive Data Percent cell count reference ranges are not reported, since discordance with absolute values may lead to misinterpretation of CBC data. Current Interpretive Data was last revised on 2017. Eosinophil pct 3.4 % [facility] Comment: Interpretive Data Percent cell count reference ranges are not reported, since discordance with absolute values may lead to misinterpretation of CBC data. Current Interpretive Data was last revised on 2017. Basophil pct 0.4 % [facility] Comment: Interpretive Data Percent cell count reference ranges are not reported, since discordance with absolute values may lead to misinterpretation of CBC data. Current Interpretive Data was last revised on 2017. Blood 07/02/2024 10:2 0 AM TREATING ENGINEER 07/02/2024 5:00 PM TREATING ENGINEER us Kimberly Nicolas MD LAB BLOOD ORDERABLES Final Resu lt [facility] [address] Department [place] [address] * (ABNORMAL) Urinalysis reflex to microscopic and culture Urine, clean voided (07/02/2024 10:20 AM TREATING ENGINEER) Color, ur Yellow Yellow Clarity, ur Clear Clear [facility] Specific gravity, ur 1.012 1.003 - 1.030 [facility] pH, urine 6.5 [facility] Comment: Interpretive Data ? Urine pH is affected by diet, medications, systemic acid-base disturbances, and renal tubular function. ??pH may affect urinary stone formation. ??For example, urine pH below 6.0 may help reduce the tendency for calcium phosphate stones and pH greater than 6.0 may reduce the tendency for uric acid stone formation. Source: [facility] Current Interpretive Data was last revised on [...] Reflex to microscopic UA will be performed. [facility] Urine, clean voided 07/02/2024 10:20 AM TREATING ENGINEER 07/02/2024 5:00 PM TREATING ENGINEER us Kimberly Nicolas MD LAB MICROBIOLOGY - [facility] MIA LEARY Final Result [facility] [address] Department [place] [address] * (ABNORMAL) CBC with auto differential (07/02/2024 10:20 AM TREATING ENGINEER) WBC 7.4 3.8 - 9.9 K/cumm Hgb 13.3 11.9 - 15.5 g/dL [facility] Hct 44.2 35.6 - 45.5 % [facility] Plt 296 150 - 400 K/cumm [facility] MPV 9.4 9.1 - 12.3 fL [facility] RBC 4.79 3.90 - 5.20 M/cumm [facility] MCV 92.3 81.3 - 96.4 fL [facility] CH MCH 27.8 27.1 - 33.3 pg [facility] MCHC 30.1(L) 32.3 - 35.7 g/dL [facility] RDW CV 13.0 11.1 - 14.9 % [facility] CH RDW SD 43.8 35.7 - 48.1 fL [facility] NRBC abs 0.00 0.00 - 0.01 K/cumm [facility] Blood 07/02/2024 10:2 0 AM TREATING ENGINEER 07/02/2024 5:00 PM TREATING ENGINEER Kimberly Nicolas MD LAB BLOOD ORDERABLES Final Resu lt Performing Organization Address [facility] Co de Phone Number [facility] [address] Department [place] [address] * (ABNORMAL) Albumin Creatinine Ratio, Urine (07/02/2024 10:20 AM TREATING ENGINEER) Albumin Ur 45.5 mg/L Comment: Interpretive Data No reference range established. Current interpretive data was last revised 2018. Creatinine Ur 73.7 mg/dL [facility] Comment: Interpretive Data No reference range established. Current interpretive data was last revised 2018. Albumin Creatinine Ratio, Ur 62(H) 1 - 29 mg/g [facility] Urine 07/02/2024 10:2 0 AM TREATING ENGINEER 07/02/2024 5:00 PM TREATING ENGINEER Servando Torre MD LAB URINE ORDERABLES Final Result Performing Organization Address [facility] Co de Phone Number [facility] MATTHEW [address] Department [place] [address] * Lamotrigine level (07/02/2024 10:20 AM TREATING ENGINEER) Lamotrigine 9.6 3.0 - 15.0 mcg/mL [facility] ref [facility] Comment: ADDITIONAL INFORMATION This test was developed and its performance characteristics determined by [facility] in a manner consistent with CLIA requirements. This test has not been cleared or approved by the U.S. Food and Drug Administration. Test Performed by: [facility] - [address] [address] Rig Welder: Liu Davis Ph.D.; CLIA# [id number] Blood 07/02/2024 10:2 0 AM TREATING ENGINEER 07/02/2024 5:00 PM TREATING ENGINEER Servando Torre MD LAB BLOOD ORDERABLES Final Result Performing Organization Address [facility] Co de Phone Number [facility] MATTHEW [address] Department Laboratories [place], [place] [id number] [facility] ref [facility] * (ABNORMAL) Urinalysis, microscopic only (07/02/2024 10:20 AM TREATING ENGINEER) WBC, ur 6-10(A) 0 - 5 /HPF RBC, ur 3-5(A) 0 - 2 /HPF [facility] Epithelial cells, squamous, ur 1-5 0 - 5 /HPF [facility] Mucous, ur Present(A) [facility] Culture Reflex Comment Reflex conditions for urine culture (WBC >10) not met. [facility] Urine, clean voided 07/02/2024 10:20 AM TREATING ENGINEER 07/02/2024 5:00 PM TREATING ENGINEER Result [facility] Kimberly Nicolas MD LAB URINE ORDERABLES Final Resu lt Performing Organization Address [facility] de Phone Number [facility] [address] [facility] [place] [address] * (ABNORMAL) Hemoglobin A1c (07/02/2024 10:20 AM TREATING ENGINEER) Hgb A1C 6.4(H) 4.0 - 5.6 % Estimated Average Glucose 137 mg/dL [facility] Comment: The ADA recommends reporting an estimated Average Glucose (eAG) with all Hemoglobin A1c results using the equation derived from a study of 507 normal and diabetic adults. ??Minority populations were underrepresented and children were not included. ?? (Diabetes Care 31:2360-4991, 2008). ??The eAG is not equivalent to a fasting glucose. Blood 07/02/2024 10:2 0 AM TREATING ENGINEER 07/02/2024 5:00 PM TREATING ENGINEER us Servando Torre MD LAB BLOOD ORDERABLES Final Result Performing Organization Address City/State/ZIP Co ks Phone Number [facility] [address] [place] [address] * (ABNORMAL) Lipid panel (07/02/2024 10:20 AM TREATING ENGINEER) Cholesterol 190 30 - 199 mg/dL [...] on 2018. HDL 52 >=40 mg/dL [facility] MATTHEW Comment: Interpretive Data Ages [...] 2018. LDL, calculated 108 <=129 mg/dL [facility] MATTHEW Comment: Interpretive Data Ages < or = 19 years ??Acceptable: ? <110 mg/dL ??Borderline high: ??110-129 mg/dL ??High: ?>or= 130 mg/dL Ages > or = 20 years ??Optimal: ? <100 mg/dL ??Near optimal: ?100-129 mg/dL ??Borderline high: ?? 130-159 mg/dL ??High: ?>160 mg/dL Calculated using the Jayy LDL-C estimating equation. This equation was implemented on 2024. Prior to this date LDL-C was estimated using the Friedewald equation. Literature References: 1. Expert Panel on Integrated Guidelines for Cardiovascular Health and Risk Reduction in Children and Adolescents. Pediatrics 2011;128:S213 2. NCEP Expert Panel. Circulation 2004;110:227 3. Jayy Chicas al. IFTIKHAR Cardiol. 2020 November 25;5(5):540-548. doi: 10.1001/jamacardio.2020.0013 Current Interpretive Data was last revised on 2024. Non-HDL Cholesterol 138 mg/dL [facility] MATTHEW Comment: Interpretive Data Ages [...] last revised on 2018. Chol/HDL ratio 4 [facility] Blood 07/02/2024 10:2 0 AM TREATING ENGINEER 07/02/2024 5:00 PM TREATING ENGINEER us Servando Torre MD LAB BLOOD ORDERABLES Final Result Performing Organization Address City/State/ZIP Co ks Phone Number [facility] [address] Department [place] [address] * (ABNORMAL) Comprehensive metabolic panel (07/02/2024 10:20 AM TREATING ENGINEER) Sodium 141 135 - 145 mmol/L Potassium, pl 4.1 3.3 - 4.9 mmol/L [facility] Chloride 103 97 - 110 mmol/L [facility] CO2 27 22 - 32 mmol/L [facility] Anion gap 11 2 - 15 mmol/L [facility] BUN 16 6 - 25 mg/dL [facility] Creatinine 0.88 0.60 - 1.10 mg/dL [facility] Glucose 128 70 - 199 mg/dL [facility] Comment: Interpretive Data Fasting glucose >/= 126 [...] [facility] Blood 07/02/2024 10:2 0 AM TREATING ENGINEER 07/02/2024 5:00 PM TREATING ENGINEER us Kimberly Nicolas MD LAB BLOOD ORDERABLES Final Resu lt [facility] [address] Department [place] [address] * XR Spine Lumbar 2 or 3 Views (06/18/2024 3:04 PM TREATING ENGINEER) Anatomical Region Laterality Modality Spine N/A Digital Radiogra phy 06/18/2024 5:05 PM TREATING ENGINEER Narrative 06/18/2024 5:13 PM TREATING ENGINEER EXAM DESCRIPTION: XR HIP LEFT 2 [...] no change from prior CT. There is rfhc-of-bnyhqobn multilevel degenerative endplate change with no acute [...] 5:13 PM - Electronically signed by ??Teofilo ZAFAR D: ??06/18/2024 5:13 PM T: Report ID: [id number] Reading Location: ??[id number] Procedure Note Teofilo Rand MD - 06/18/2024 [...] no change from prior CT. There is pdxc-cw-dkhnyrex multilevel degenerative endplate change with no acute [...] Teofilo Rand M.D. MJ T: Report ID: [id number] Reading Location: [place] [address] us Pricilla Olguin NP IMG XR PROCEDURES Final Result * XR Hip Left 2+ Vw (06/18/2024 3:04 PM TREATING ENGINEER) Anatomical Region Laterality Modality Lower Extremities, Hip, Pelvis Left D igital Radiography 06/18/2024 5:05 PM TREATING ENGINEER Narrative 06/18/2024 5:13 PM TREATING ENGINEER EXAM DESCRIPTION: XR HIP LEFT 2 [...] no change from prior CT. There is odrw-ih-lobueyoe multilevel degenerative endplate change with no acute [...] 5:13 PM - Electronically signed by ??Teofilo ZAFAR D: ??06/18/2024 5:13 PM T: Report ID: [id number] Reading Location: ??[id number] Procedure Note Teofilo Rand MD - 06/18/2024 [...] no change from prior CT. There is qwic-xb-qxgauxjt multilevel degenerative endplate change with no acute [...] signed by Teofilo ZAFAR T: Report ID: [id number] Reading Location: [id number] Pricilla Olguin NP IMG XR PROCEDURES Final [...] D: ??05/13/2024 4:47 PM T: Report ID: [id number] Reading Location: ??[id number] Procedure Note Dylan Zuniga MD - 05/13/2024 EXAM DESCRIPTION: XR KNEE [...] signed by Dylan CARROLL T: Report ID: [id number] Reading Location: [place] [address] Mara Almendarez REVENUE CYCLE SPECIALIST IMG XR PROCEDURES Final Re sult * Lamotrigine level (04/27/2024 11:52 AM CDT) [facility] Signature Lamotrigine 6.3 3.0 - 15.0 mcg/mL [facility] Comment: ADDITIONAL INFORMATION This test was developed and its performance characteristics determined by [facility] in a manner consistent with CLIA requirements. This test has not been cleared or approved by the U.S. Food and Drug Administration. Test Performed by: [facility] Laboratories - [address] [address] Rig Welder: Liu Davis Ph.D.; CLIA# [id number] Blood 04/27/2024 11:5 2 AM CDT 04/27/2024 7:35 PM CDT Adria Diop MD LAB BLOOD [place] [address] [address] Department [place] [address] [place] ref Lab * Diabetic Eye Exam (06/25/2023) us Historical Provider HEALTH MAINTENANCE Final Result * Dexa Axial Skeleton Bone Density 1 or 2 Site (12/12/2022 2:33 PM CDT) Anatomical Region Laterality Modality Body N/A Radiographic Keyanna ging Narrative 12/12/2022 3:00 PM CDT Patient Name: Lisa Allen Date of : 1945 Date of scan: 12/12/2022 Bone mineral density was performed on a Effcon MXR Discovery Densitometer. ?? Based on machine cross-calibration [...] density scan were prepared by Myah Lacy(Darian) CBDT ??who is accredited by the International Society of Clinical Densitometry. The overall patient assessment and scan interpretation were performed by Josep Mathew MD ??who is certified by the International Society of Clinical Densitometry. [id number] Servando Torre MD IMG DXA PROCEDURES Final Re sult from Last 3 Months or Most Recently Relevant to Health Maintenance Insurance MEDICARE [facility] MEDICARE SUPPLEMENT BLUE CROSS MEDICARE SUPPLEMENT MEDICARE [facility] MEDICARE [facility] Advance Directives For more information, please contact: [phone] * Full Code (Latest Code Status on File) Date Activated Date Inactivated Comments 11/29/2022 9:30 AM 11/29/2022 3:28 PM Care Teams Mining Speculator Relationship Specialty Start Date End Date Servando Torre MD [address] [facility] [address] [place] [address] PCP - General Family Medicine 06/19/22 Mariela Denton MD [address] [place] [address] Referring Physician Gastroenterology 06/19/22 Lexis Barroso OD [address] [place] [id number] Cyanide Furnace Operator 09/19/22
--- OUTSIDE RECORDS SUMMARY | 2024-07-12 19:41 | XMS_ITS | Encounter Summary ---
Author Organization [facility] Healthcare Address [address] [place] [address] Care Team Providers Care Linux Systems Administrator Name Role Phone Servando Torre MD Primary Care Provider [phone]- [phone] Mariela Denton MD Unavailable [phone] -[phone] Lexis Barroso OD Unavailable +1- [phone] Encounter Details Date Type Department Care Team (Late st Contact Info) Description 07/02/2024 10:15 AM OVERLAY PLASTICIAN Lab [facility] Outpatient Lab at [address] [address] Encounter for Medicare annual wellness exam (Primary Dx) Social History Tobacco Use Types [...] on file Legal Sex Female 9:30 AM OVERLAY PLASTICIAN Gender Identity Female 04/05/2022 6:17 PM CDT Sexual Orientation Straight 04/05/2022 6: 17 PM CDT documented as of this encounter Plan of Treatment Not on file documented as of this encounter Visit Diagnoses Diagnosis Encounter for Medicare annual wellness exam- Primary documented in this encounter Care Teams Linux Systems Administrator Relationship Specialty Start Date End Date Servando Torre MD [address] [address] PCP - General Family Medicine 06/19/22 Mariela Denton MD [address] [place] [address] Referring Physician Gastroenterology 06/19/22 Lexis Barroso OD [address] [place] [address] Parcel Carrier 09/19/22 documented as of this encounter
--- OUTSIDE RECORDS SUMMARY | 2024-07-12 19:41 | XMS_ITS | Encounter Summary ---
Author Organization [facility] Healthcare Address [address] [place] [address] Care Team Providers Care Slate Handler Name Role Phone Servando Torre MD Primary Care Provider [phone]- [phone] Mariela Denton MD Unavailable + [phone] Lexis Barroso OD Unavailable [phone]- [phone] Reason for Referral * Diagnostic Imaging (Routine) - Closed Specialty Diagnoses / Procedures Referred By Contac t Referred To Contact Radiology Procedures HEAD COMPUTED TOMOGRAPHY ([place]) [place] [id number] [place] [address] Phone: tel: Referral ID Status Reason Start Date Expiration Date Visits Re quested Visits Authorized [id number] Closed 07/12/2024 08/11/2025 1 1 ROUTE CONTROLLER Encounter Details Date Type Department Care Team (Late st Contact Info) Description 07/12/2024 Orders Only [facility] Primary Care at [address] [address] [place] [id number] [place] [address] Social History Tobacco Use Types Packs/Day Years [...] on file Legal Sex Female 9:30 AM AIR ROUTE CONTROLLER Gender Identity Female 04/05/2022 6:17 PM CDT Sexual Orientation Straight 04/05/2022 6: 17 PM CDT documented as of this encounter Plan of Treatment Not on file documented as of this encounter Procedures Procedure Name Priority Date/Time Associated Diagnosis Comments HEAD COMPUTED TOMOGRAPHY (CT) WITHOUT CONTRAST Schedule Routine, Read Routine (OP Routine) 07/11/2024 9:14 AM AIR ROUTE CONTROLLER documented in this encounter Results * HEAD COMPUTED TOMOGRAPHY (CT) WITHOUT CONTRAST (07/11/2024 9:14 AM AIR ROUTE CONTROLLER) Anatomical Region Laterality Modality N/A Computed Tomogra phy Marcell Rucker MD IMG CT PROCEDURES Final Result documented in this encounter Visit Diagnoses Not on filedocumented in this encounter Care Teams Slate Handler Relationship Specialty Start Date End Date Servando Torre MD [address] [facility] [address] [place] [address] PCP - General Family Medicine 06/19/22 Mariela Denton MD [address] [place] [address] Referring Physician Gastroenterology 06/19/22 Lexis Barroso OD [address] [place] [id number] Knife Edger 09/19/22 documented as of this encounter
--- OUTSIDE RECORDS SUMMARY | 2024-07-12 19:41 | XMS_ITS | Encounter Summary ---
Author Organization [facility] Healthcare Address [address] [place] [address] Care Team Providers Care Vertical Punch Operator Name Role Phone Servando Torre MD Primary Care Provider [phone]- [phone] Mariela Denton MD Unavailable [phone] [phone] Lexis Barroso OD Unavailable +1- [phone] Reason for Referral * Diagnostic Imaging (Routine) - Authorized Specialty Diagnoses / Procedures [facility]erred By [facility] Referred To Contact Diagnoses Carotid stenosis, asymptomatic, bilateral Procedures Vl US Carotids Servando Torre MD [address] [place] [address] [address] [place] [address] Phone: tel: fax: [facility] at [address] [place] [address] Phone: tel: fax: Referral ID Status Reason Start Date Expiration Date V isits Requested Visits Authorized [id number] Authorized 07/05/2024 08/04/2025 1 1 DING MAINTENANCE SUPERINTENDENT Reason for Visit * Reason Comments Medicare Annual Wellness Visit Subsequen t Medicare wellness Encounter Details Date Type Department Care Team (Late st Contact Info) Description 07/05/2024 3:00 PM BUILDING MAINTENANCE SUPERINTENDENT Office Visit [facility] Primary Care at [place] [phone] Servando Torre MD [address] [facility] [address] [place] [address] Encounter for Medicare annual wellness exam (Primary Dx); Mixed diabetic hyperlipidemia associated with type 2 diabetes mellitus (HCC); Hypertension associated with diabetes (HCC); Gastroesophageal reflux disease without esophagitis; At risk for falls; Carotid stenosis, asymptomatic, bilateral Social History Tobacco Use Types Packs/Day Years [...] on file Legal Sex Female 9:30 AM BUILDING MAINTENANCE SUPERINTENDENT Gender Identity Female 04/05/2022 6:17 PM CDT Sexual Orientation Straight 04/05/2022 6: 17 PM CDT documented as of this encounter Last Filed Vital Signs Vital Sign Reading Time Taken Comments Blood Pressure 128/70 07/05/2024 3:02 PM BUILDING MAINTENANCE SUPERINTENDENT Pulse 56 07/05/2024 3:02 PM BUILDING MAINTENANCE SUPERINTENDENT Temperature 36.3 ??C (97.3 ??F) 07/05/2024 3:02 PM CS T Respiratory Rate 18 07/05/2024 3:02 PM BUILDING MAINTENANCE SUPERINTENDENT Oxygen Saturation 96% 07/05/2024 3:02 PM BUILDING MAINTENANCE SUPERINTENDENT Inhaled Oxygen Concentration - - Weight 66.7 kg (147 lb) 07/05/2024 3:02 PM BUILDING MAINTENANCE SUPERINTENDENT Height 157.5 cm (5' 2 ) 07/05/2024 3:02 PM BUILDING MAINTENANCE SUPERINTENDENT Body Mass Index 26.89 07/05/2024 3:02 PM BUILDING MAINTENANCE SUPERINTENDENT documented in this encounter Patient Instructions * Patient Instructions* Servando Torre MD - 07/05/2024 3:00 PM BUILDING MAINTENANCE SUPERINTENDENT Continue work with PT and OT Do NOT forget your walker!!! Continue current regimen A1c is improving, now down to 6.4% Cholesterol needs more work, will increase pravastatin to full dose (80 mg daily) Thanks for coming in today! My medical assistants and I are thankful you have trusted us with your care, and hope that you received EXCELLENT care today! Please do not hesitate to call if you have any questions or concerns at [phone]. You may receive a phone call, text, MYCHART message, or e-mail asking about your care today. We would love to hear your feedback on how EXCELLENT your care wastoday! Wishing you better health, always. Dr. Torre DING MAINTENANCE SUPERINTENDENT DING MAINTENANCE SUPERINTENDENT documented in this encounter Ordered Prescriptions Prescription Sig Dispense Quantity Refills Last Filled Start Date End Date pravastatin (PRAVACHOL) 80 mg tabletIndications:Mi xed diabetic hyperlipidemia associated with type 2 diabetes mellitus (HCC),Carotid stenosis, asymptomatic, bilateral Take 1 tablet (80 mg total) by mouth nightly 30 tablet 3 07/05/2024 5 pravastatin (PRAVACHOL) 80 mg tabletIndications:Mi xed diabetic hyperlipidemia associated with type 2 diabetes mellitus (HCC),Carotid stenosis, asymptomatic, bilateral Take 1 tablet (80 mg total) by mouth nightly 30 tablet 3 07/05/2024 4 documented in this encounter Progress Notes * Servando Torre MD - 07/05/2024 3:00 PM CST MEDICARE ANNUAL WELLNESS VISIT Lisa Allen Medicare Health Risk Assessment Basic Information In general, would you say your health is: Good Do you have an advance directive, such as a living will or durable power of deputy prosecuting attorney?: Yes Do you have to strain or struggle to hear/understand conversations?: (!) Yes Have you experienced any of the following problems currently or recently? Eating: No Grooming: No Bathing: No Walking: No Using the toilet: No Memory problems: No Difficulty speaking: No Dressing: No Balance: (!) Yes Pain: No Sexual Health: No Fatigue: No Depression: No Life Satisfaction: No Stress: No Anger: No Loneliness or Social Isolation: No Suicide: No Have you experienced any of the following problems currently or recently? 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 Gout Acute pulmonary edema (CMS/HCC) (HCC) Closed fracture of multiple ribs of left side Multiple fractures of ribs associated with chest compression and cardiopulmonary resuscitation Elevated troponin Liver nodule Cervicalgia Osteopenia Pulmonary nodules Seizure (HCC) GERD (gastroesophageal reflux disease) Hypertension associated with diabetes (HCC) Ulcerative colitis (HCC) Localization-related symptomatic epilepsy and epileptic syndromes with complex partial seizures, not intractable, without status epilepticus (HCC) Elevated liver enzymes Follow-up examination following treatment with high-risk medication Abnormal liver function tests terminal 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 (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) use of oral hypoglycemic drugs Type 2 diabetes mellitus without complications (CMS/HCC) (HCC) Other specified diseases of liver At risk for falls Epilepsy, unspecified, not intractable, without status epilepticus (HCC) Chronic gout, unspecified, without tophus (tophi) Mixed diabetic hyperlipidemia associated with type 2 diabetes mellitus (HCC) Syncope Bradycardia Dementia in other diseases classified elsewhere, mild, without behavioral disturbance, psychotic disturbance, mood disturbance, and anxiety (HCC) Cyst of anterior horn of lateral meniscus of right knee 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 Prediabetes 06/19/2022 Seizure (HCC) Syncope Ulcerative colitis (HCC) 2019 Past Surgical History: Procedure Laterality Date COLONOSCOPY FEMUR FRACTURE SURGERY Left 2011 PARTIAL HIP ARTHROPLASTY Left 2015 RETINAL DETACHMENT SURGERY Right Family History: Family History Problem Relation Age of Onset Atrial fibrillation Mother Breast cancer Mother Stroke Mother Other (afib) Mother Cancer Father Alzheimer's disease Father 70 Social History: Social History Tobacco Use Smoking status: Never Passive exposure: Never Smokeless tobacco: Never Substance and Sexual Activity Drug use: Never Sexual activity: Never Alcohol Use: Not At Risk (06/26/2023) AUDIT-C Frequency of Alcohol Consumption: Never Average Number of Drinks: Patient does not drink Frequency of Binge Drinking: Never Allergies: Allergies Allergen Reactions Penicillins Hives She thinks as an adult but is unsure Medications: Current Outpatient Medications: acetaminophen (acetaminophen Extra Strength) 500 mg tablet, Take 1 tablet (500 mg total) by mouth every 6 (six) hours as needed, Disp: , Rfl: amLODIPine (NORVASC) 5 mg tablet, Take 1 tablet (5 mg total) by mouth daily, Disp: 90 tablet, Rfl: 1 aspirin 81 mg enteric coated tablet, Take 1 tablet (81 mg total) by mouth daily, Disp: 90 tablet, Rfl: 3 calcium citrate-vitamin D3 (Citracal + D Maximum) 315 mg-6.25 mcg (250 unit) per tablet, Take 1 tablet by mouth daily, Disp: 90 tablet, Rfl: 3 cholecalciferol (VITAMIN D-3) 2000 unit tablet, Take 1 tablet (2,000 Units total) by mouth daily Low Vitamin D level from 05/30/2022., Disp: 90 tablet, Rfl: 3 ferrous sulfate ER 324 mg (65 mg iron) EC tablet, Take 1 tablet (324 mg total) by mouth daily with breakfast, Disp: 90 tablet, Rfl: 1 lamoTRIgine (LaMICtal) 200 mg tablet, , Disp: , Rfl: losartan (COZAAR) 100 mg tablet, Take 1 tablet (100 mg total) by mouth nightly, Disp: , Rfl: melatonin tablet, Take 1 tablet (3 mg total) by mouth 3 (three) times a week, Disp: , Rfl: mesalamine (APRISO) 0.375 gram 24 hr capsule, Take 2 capsules by mouth in the morning and 2 capsules in the evening, Disp: 120 capsule, Rfl: 5 metoprolol tartrate (LOPRESSOR) 50 mg immediate release tablet, Take 1 tablet (50 mg total) by mouth 2 (two) times a day, Disp: 180 tablet, Rfl: 1 mirtazapine (REMERON) 7.5 mg tablet, Take 1 tablet (7.5 mg total) by mouth nightly, Disp: 30 tablet, Rfl: 5 multivitamin capsule, Take 1 capsule by mouth daily, Disp: , Rfl: OneTouch Delica Plus Lancet 33 gauge misc, 1 each by other route daily To check glucose with glucose monitor and strip, Disp: 100 each, Rfl: 3 OneTouch Ultra Test strip, 1 each by other route daily To check blood glucose, Disp: 50 each, Rfl: [address] (PROTONIX) 40 mg EC tablet, Take 1 tablet (40 mg total) by mouth nightly, Disp: , Rfl: pravastatin (PRAVACHOL) 40 mg tablet, Take 1 tablet (40 mg total) by mouth nightly, Disp: , Rfl: vedolizumab (ENTYVIO) 300 mg recon soln, Infuse 5 mL (300 mg total) into a venous catheter every 8 (eight) weeks Infused at: [facility] ([facility] order in Epic under 'Procedures' tab)., Disp: 1 each, Rfl: 5 busPIRone (BUSPAR) 5 mg tablet, , Disp: , Rfl: cephalexin (KEFLEX) 500 mg capsule, , Disp: , Rfl: metFORMIN XR (GLUCOPHAGE XR) 750 mg 24 hr tablet, Take 1 tablet (750 mg total) by mouth daily with breakfast, Disp: 30 tablet, Rfl: 11 Depression Screen: PHQ Screening Over the past 2 weeks, how often have you been bothered by any of the following problems? Little Interest or Pleasure in Doing Things: Not at all Feeling Down, Depressed, or Hopeless: Not at all PHQ-2 Total Score (If total score is 3 or more points, staff should administer the PHQ-9): 0 STEADI Fall Risk Screening In the past year, patient experienced: One or more falls in the last year: (!) Yes How many times?: 2 or more Was the patient injured in the fall?: Yes Has trouble stepping up onto a curb: No Advised to use a cane or walker to get around safely: Yes Often has to guerrero to the toilet: No Feels unsteady when walking: Yes Has lost some feeling in feet: No Steadies self on furniture while walking at home: No Takes medicine that makes him/her feel lightheaded or more tired than usual: No Worried about falling: Yes Takes medicine to sleep or improve mood: No Needs to push with hands when rising from a chair: No Often feels sad or depressed: No STEADI Score Total: 6 Vitals: Vitals BP 128/70 (BP Location: Right arm, Patient Position: Sitting) Pulse 56 Temp 36.3 ??C (97.3 ??F) (Temporal) Resp 18 Ht 157.5 cm (5' 2 ) Wt 66.7 kg (147 lb) SpO2 96% BMI 26.89 kg/m?? Body mass index is 26.89 kg/m??. Exam: Physical Exam Vitals reviewed. Constitutional: General: She is not in acute distress. Appearance: She is not ill-appearing. HENT: Head: Normocephalic and atraumatic. Cardiovascular: Rate and Rhythm: Normal rate and regular rhythm. Heart sounds: No murmur heard. No friction rub. No gallop. Pulmonary: Breath sounds: No wheezing, rhonchi or rales. Musculoskeletal: Right lower leg: No edema. Left lower leg: No edema. Neurological: Mental Status: She is alert and oriented to person, place, and time. Mental status is at baseline. Psychiatric: Mood and Affect: Mood normal. Care Team Providers: Patient Care Team: Servando Torre MD as PCP - General (Family Medicine) Mariela Denton MD as Referring Physician (Gastroenterology) Lexis Barroso OD (Meat Packager) Primary Pharmacy/DME suppliers: [address] [facility] [id number] Detection of Cognitive Impairment: Mini-Co The patient does not have cognitive impairment based on direct observation, discussion with patientor family, or review of medical records. Health Maintenance: Health Maintenance Topics with due status: Overdue Topic Date Due Hepatitis B Screening Never done Covid-19 Vaccine 03/28/2024 Dilated Eye Exam 06/25/2024 Health Maintenance Topics with due status: Due On Topic Date Due Well Visit 65+ 06/26/2024 Health Maintenance Topics with due status: Postponed Topic Postponed Until DTaP/Tdap/Td Vaccine 07/27/2025 (Originally 1956) Health Maintenance Topics with due status: Not Due Topic Last Completion Date Osteoporosis Screening-Bone Density Scan 12/12/2022 Foot Exam 04/01/2024 Albumin Creatinine Ratio, Urine 07/02/2024 Lipid Panel 07/02/2024 Hemoglobin A1C 07/02/2024 eGFR 07/02/2024 Fall Risk Assessment 07/05/2024 Depression Screening 07/05/2024 Health Maintenance Topics with due status: Completed Topic Last Completion Date Zoster Vaccine 08/01/2020 Pneumococcal vaccine 65+ 03/27/2023 Influenza Vaccine 05/05/2024 Counseling and Referral of Preventative Services: Lifestyle Recommendations Increase Physical Activity, Reduce Weight, and Improve Diet Advanced Directive Durable Power of Brazing Furnace Feeder: Yes Living Will: Yes Opioid Usage Review Using opioids: no Assessment and Plan: Diagnoses and all orders for this visit: Encounter for Medicare annual wellness exam (Primary) Assessment & Plan: A(n) yearly Medicare Annual Wellness Visit has been performed today. Lisa Allen is not up to dateon screening tests. She is in need of [...] and seat belts. Return in 3 months Mixed diabetic hyperlipidemia associated with type 2 diabetes mellitus (HCC) Comments: continuing pravavstatin changed to [facility] Orders: - pravastatin (PRAVACHOL) 80 mg tablet; Take 1 tablet (80 mg total) by mouth nightly - Lipid panel; Future - Hemoglobin A1c; Future Hypertension associated with diabetes (HCC) Comments: BP is controlled continuing losartan, metoprolol Orders: - CBC with auto differential; Future - Comprehensive metabolic panel; Future - Thyroid Function [place]; Future - Hemoglobin A1c; Future Gastroesophageal reflux disease without esophagitis - CBC with auto differential; Future At risk for falls Comments: working with PT/OT at [facility]) over the last month Carotid stenosis, asymptomatic, bilateral Comments: continuing aspirin atorvastatin increased to 80 mg qhs Orders: - pravastatin (PRAVACHOL) 80 mg tablet; Take 1 tablet (80 mg total) by mouth nightly - Vl US Carotids; Future Patient here for annual Medicare wellness visit and for review of complete medical problem list. All the elements of the plan were completed as outlined by CMS. A copy of the prevention plan was given to the patient. I reviewed Medicare Wellness Questionnaire (other physicians involved in care, depression screen, advanced directives), cognitive/memory, and functional assessment. I reviewed and updated the complete problem list, medication list, family history, and immunization records with the patient. I provided preventive counseling and early detection interventions to the patient through health maintenance update and summary of today's office visit. DING MAINTENANCE SUPERINTENDENT * Asif Toscano MA - 07/05/2024 3:00 PM CST Script for pravastatin has been faxed to [place]. DING MAINTENANCE SUPERINTENDENT documented in this encounter Miscellaneous Notes * Assessment & Plan Note - Servando Torre MD - 07/05/2024 3:20 PM BUILDING MAINTENANCE SUPERINTENDENT Associated Problem(s): Encounter for Medicare annual wellness exam A(n) yearly Medicare Annual Wellness Visit has been performed today. Lisa Allen is not up to dateon screening tests. She is in need of [...] and seat belts. Return in 3 months DING MAINTENANCE SUPERINTENDENT * Addendum Note - Asif Toscano MA - 07/05/2024 3:00 PM CSTAddended by: ASIF TOSCANO on: 07/05/2024 04:22 PM Modules accepted: Orders DING MAINTENANCE SUPERINTENDENT documented in this encounter Plan of Treatment Scheduled Orders Name Type Priority Associated Diagnoses Orde r Schedule Vl US Carotids Imaging Schedule Routine , Read Routine (OP Routine) Carotid stenosis, asymptomatic, bilateral Expected: 07/05/2024, Expires: 07/05/2025 CBC with auto differential Lab Routine Hypertension associated with diabetes (HCC) Gastroesophageal reflux disease without esophagitis Expected: 01/03/2025, Expires: 07/05/2025 Comprehensive metabolic panel Lab Routine Hypertension associated with diabetes (HCC) Expected: 01/03/2025, Expires: 07/05/2025 Lipid panel Lab Routine Mixed diabetic hyperlipidemia associated with type 2 diabetes mellitus (HCC) Expected: 01/03/2025, Expires: 07/05/2025 Thyroid Function [place] Lab Routine Hypertension associated with diabetes (HCC) Expected: 01/03/2025, Expires: 07/05/2025 Hemoglobin A1c Lab Routine Mixed diabetic hyperlipidemia associated with type 2 diabetes mellitus (HCC) Hypertension associated with diabetes (HCC) Expected: 01/03/2025, Expires: 07/05/2025 documented as of this encounter Visit Diagnoses Diagnosis Encounter for Medicare annual wellness exam- Primary Mixed diabetic hyperlipidemia associated with type 2 diabetes mellitus (HCC) Hypertension associated with diabetes (HCC) Unspecified essential hypertension Gastroesophageal reflux disease without esophagitis Esophageal reflux At risk for falls Personal history of fall Carotid stenosis, asymptomatic, bilateral documented in this encounter Discontinued Medications Medication Sig Discontinue Reason Start Date End Da te pravastatin (PRAVACHOL) 40 mg tabletIndications:Mixed diabetic hyperlipidemia associated with type 2 diabetes mellitus (HCC) Take 1 tablet (40 mg total) by mouth nightly Reorder 01/01/2024 07/05/2024 cephalexin (KEFLEX) 500 mg capsule 06/10/2024 07/05/2024 busPIRone (BUSPAR) 5 mg tablet 05/28/2024 07/05/2024 pravastatin (PRAVACHOL) 80 mg tabletIndications:Mixed diabetic hyperlipidemia associated with type 2 diabetes mellitus (HCC),Carotid stenosis, asymptomatic, bilateral Take 1 tablet (80 mg total) by mouth nightly Reorder 07/05/2024 07/05/2024 documented as of this encounter Care Teams Vertical Punch Operator Relationship Specialty Start Date End Date Servando Torre MD [address] [address] PCP - General Family Medicine 06/19/22 Mariela Denton MD [address] [place] [address] Referring Physician Gastroenterology 06/19/22 Lexis Barroso OD [address] [place] [address] Meat Packager 09/19/22 documented as of this encounter
--- OUTSIDE RECORDS SUMMARY | 2024-07-12 19:41 | XMS_ITS | Encounter Summary ---
Author Organization [facility] Healthcare Address [address] [place] [address] Care Team Providers Care Manifold Builder Name Role Phone Servando Torre MD Primary Care Provider [phone] Mariela Denton MD Unavailable [phone] Lexis Barroso OD Unavailable [phone]- [phone] Encounter Details Date Type Department Care Team (Latest Contact Info) Description 07/02/2024 10:20 AM COMMERCIAL ENERGY AUDITOR - 07/02/2024 11:59 PM [facility] Hospital Encounter [facility] [id number] [place] [id number] Hypertension associated with diabetes (HCC); Seizure (HCC); Weakness generalized Discharge Disposition: Discharge to home or self care Social History Tobacco Use Types Packs/Day Years [...] on file Legal Sex Female 9:30 AM COMMERCIAL ENERGY AUDITOR Gender Identity Female 04/05/2022 6:17 PM CDT Sexual Orientation Straight 04/05/2022 6: 17 PM CDT documented as of this encounter Medications at Time of Discharge amLODIPine (NORVASC) 5 mg tablet Take 1 tablet (5 mg total) by mouth daily 90 tablet 1 01/14/2023 aspirin 81 mg enteric coated tablet Take 1 tablet (81 mg total) by mouth daily 90 tablet 3 08/27/2023 5 calcium citrate-vitamin D3 (Citracal + D Maximum) 315 mg-6.25 mcg (250 unit) per tablet Take 1 tablet by mouth daily 90 tablet 3 08/27/2023 5 cholecalciferol (VITAMIN D-3) 2000 unit tabletIndications:Lo w serum vitamin D Take 1 tablet (2,000 Units total) by mouth daily Low Vitamin D level from 05/30/2022. 90 tablet 3 05/31/2022 ferrous sulfate ER 324 mg (65 mg iron) EC tabletIndications:Ir on Deficiency Anemia Take 1 tablet (324 mg total) by mouth daily with breakfast 90 tablet 1 04/01/2023 lamoTRIgine (LaMICtal) 200 mg tablet 04/27/2024 losartan (COZAAR) 100 mg tabletIndications:Hy pertension associated with diabetes (HCC) Take 1 tablet (100 mg total) by mouth nightly 01/01/2024 melatonin tablet Take 1 tablet (3 mg total) by mouth 3 (three) times a week mesalamine (APRISO) 0.375 gram 24 hr capsuleIndications:U lcerative Colitis Take 2 capsules by mouth in the morning and 2 capsules in the evening 120 capsule 5 10/29/2023 metoprolol tartrate (LOPRESSOR) 50 mg immediate release tablet Take 1 tablet (50 mg total) by mouth 2 (two) times a day 180 tablet 1 08/22/2023 multivitamin capsule Take 1 capsule by mouth daily OneTouch Delica Plus Lancet 33 gauge miscIndications:Pred iabetes 1 each by other route daily To check glucose with glucose monitor and strip 100 each 3 08/16/2022 OneTouch Ultra Test stripIndications:Pre diabetes 1 each by other route daily To check blood glucose 50 each 11 08/16/[address] (PROTONIX) 40 mg EC tabletIndications:Ga stroesophageal reflux disease without esophagitis Take 1 tablet (40 mg total) by mouth nightly 01/01/2024 vedolizumab (ENTYVIO) 300 mg recon solnIndications: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 1 each 5 04/29/2023 acetaminophen (acetaminophen Extra Strength) 500 mg tablet Take 1 tablet (500 mg total) by mouth every 6 (six) hours as needed 09/30/2022 4 busPIRone (BUSPAR) 5 mg tablet 05/28/2024 4 cephalexin (KEFLEX) 500 mg capsule 06/10/2024 4 mirtazapine (REMERON) 7.5 mg tablet Take 1 tablet (7.5 mg total) by mouth nightly 30 tablet 5 05/28/2024 4 pravastatin (PRAVACHOL) 40 mg tabletIndications:Mi xed diabetic hyperlipidemia associated with type 2 diabetes mellitus (HCC) Take 1 tablet (40 mg total) by mouth nightly 01/01/2024 4 documented as of this encounter Discharge Disposition Disposition Code Departure Means Destination Discharge to home or self care documented in this encounter Plan of Treatment Not on file documented as of this encounter Procedures Procedure Name Priority Date/Time Associated Diagnosis Comments EGFR Routine 07/02/2024 10:20 AM COMMERCIAL ENERGY AUDITOR Weakness generalized DIFFERENTIAL AUTO Routine 07/02/2024 10: 20 AM COMMERCIAL ENERGY AUDITOR Weakness generalized URINALYSIS AND REFLEX TO MICROSCOPIC AND CULTURE Routine 07/02/2024 10:20 AM COMMERCIAL ENERGY AUDITOR Weakness generalized CBC WITH AUTO DIFFERENTIAL Routine 07/02/2024 10:20 AM COMMERCIAL ENERGY AUDITOR Weakness generalized ALBUMIN CREATININE RATIO, URINE Routine 07/02/2024 10:20 AM COMMERCIAL ENERGY AUDITOR Hypertension associated with diabetes (HCC) LAMOTRIGINE LEVEL Routine 07/02/2024 10: 20 AM COMMERCIAL ENERGY AUDITOR Seizure (HCC) URINALYSIS, MICROSCOPIC ONLY Routine 07/02/2024 10:20 AM COMMERCIAL ENERGY AUDITOR Weakness generalized HEMOGLOBIN A1C Routine 07/02/2024 10:20 AM COMMERCIAL ENERGY AUDITOR Hypertension associated with diabetes (HCC) LIPID PANEL Routine 07/02/2024 10:20 AM COMMERCIAL ENERGY AUDITOR Hypertension associated with diabetes (HCC) COMPREHENSIVE METABOLIC PANEL Routine 07/02/2024 10:20 AM COMMERCIAL ENERGY AUDITOR Weakness generalized documented in this encounter Results * (ABNORMAL) Urinalysis, microscopic only (07/02/2024 10:20 AM COMMERCIAL ENERGY AUDITOR) WBC, ur 6-10(A) 0 - 5 /HPF RBC, ur 3-5(A) 0 - 2 /HPF [facility] Epithelial cells, squamous, ur 1-5 0 - 5 /HPF [facility] Mucous, ur Present(A) [facility] Culture Reflex Comment Reflex conditions for urine culture (WBC >10) not met. [facility] Urine, clean voided 07/02/2024 10:20 AM COMMERCIAL ENERGY AUDITOR 07/02/2024 5:00 PM COMMERCIAL ENERGY AUDITOR us Kimberly Nicolas MD LAB URINE ORDERABLES Final Resu lt [facility] [address] Department [place] [address] * eGFR (07/02/2024 10:20 AM COMMERCIAL ENERGY AUDITOR) eGFR 66 >=60 mL/min/1. 73 m2 Comment: [...] reviewed 2021. Blood 07/02/2024 10:2 0 AM COMMERCIAL ENERGY AUDITOR 07/02/2024 5:35 PM COMMERCIAL ENERGY AUDITOR us Kimberly Nicolas MD LAB BLOOD ORDERABLES Final Resu lt [facility] [address] Department [place] [address] * Differential, auto (07/02/2024 10:20 AM COMMERCIAL ENERGY AUDITOR) Neutrophil abs 5.1 1.5 - 6.5 K/cumm Imm gran abs 0.0 0.0 - 0.1 K/cumm [facility] Lymphocyte abs 1.4 0.8 - 3.3 K/cumm [facility] Monocyte abs 0.7 0.2 - 0.8 K/cumm [facility] Eosinophil abs 0.3 0.0 - 0.5 K/cumm [facility] Basophil abs 0.0 0.0 - 0.1 K/cumm [facility] Neutrophil pct 68.0 % [facility] Comment: Interpretive Data Percent cell count reference ranges are not reported, since discordance with absolute values may lead to misinterpretation of CBC data. Current Interpretive Data was last revised on 2017. Imm gran pct 0.5 % [facility] Comment: Interpretive Data Percent cell count reference ranges are not reported, since discordance with absolute values may lead to misinterpretation of CBC data. Current Interpretive Data was last revised on 2017. Lymphocyte pct 18.7 % [facility] Comment: Interpretive Data Percent cell count reference ranges are not reported, since discordance with absolute values may lead to misinterpretation of CBC data. Current Interpretive Data was last revised on 2017. Monocyte pct 9.0 % [facility] Comment: Interpretive Data Percent cell count reference ranges are not reported, since discordance with absolute values may lead to misinterpretation of CBC data. Current Interpretive Data was last revised on 2017. Eosinophil pct 3.4 % [facility] Comment: Interpretive Data Percent cell count reference ranges are not reported, since discordance with absolute values may lead to misinterpretation of CBC data. Current Interpretive Data was last revised on 2017. Basophil pct 0.4 % [facility] Comment: Interpretive Data Percent cell count reference ranges are not reported, since discordance with absolute values may lead to misinterpretation of CBC data. Current Interpretive Data was last revised on 2017. Blood 07/02/2024 10:2 0 AM COMMERCIAL ENERGY AUDITOR 07/02/2024 5:00 PM COMMERCIAL ENERGY AUDITOR us Kimberly Nicolas MD LAB BLOOD ORDERABLES Final Resu lt [facility] [address] Department [place] [address] * (ABNORMAL) CBC with auto differential (07/02/2024 10:20 AM COMMERCIAL ENERGY AUDITOR) WBC 7.4 3.8 - 9.9 K/cumm Hgb 13.3 11.9 - 15.5 g/dL [facility] Hct 44.2 35.6 - 45.5 % [facility] Plt 296 150 - 400 K/cumm [facility] MPV 9.4 9.1 - 12.3 fL [facility] RBC 4.79 3.90 - 5.20 M/cumm [facility] CH MCV 92.3 81.3 - 96.4 fL [facility] MCH 27.8 27.1 - 33.3 pg [facility] MCHC 30.1(L) 32.3 - 35.7 g/dL [facility] RDW CV 13.0 11.1 - 14.9 % [facility] CH RDW SD 43.8 35.7 - 48.1 fL [facility] NRBC abs 0.00 0.00 - 0.01 K/cumm [facility] Blood 07/02/2024 10:2 0 AM COMMERCIAL ENERGY AUDITOR 07/02/2024 5:00 PM COMMERCIAL ENERGY AUDITOR us Kimberly Nicolas MD LAB BLOOD ORDERABLES Final Resu lt [facility] [address] Department [place] [address] * (ABNORMAL) Comprehensive metabolic panel (07/02/2024 10:20 AM COMMERCIAL ENERGY AUDITOR) Sodium 141 135 - 145 mmol/L Potassium, pl 4.1 3.3 - 4.9 mmol/L [facility] Chloride 103 97 - 110 mmol/L [facility] CO2 27 22 - 32 mmol/L [facility] Anion gap 11 2 - 15 mmol/L [facility] BUN 16 6 - 25 mg/dL [facility] Creatinine 0.88 0.60 - 1.10 mg/dL [facility] Glucose 128 70 - 199 mg/dL [facility] Comment: Interpretive Data Fasting glucose >/= 126 [...] [facility] CH Blood 07/02/2024 10:2 0 AM COMMERCIAL ENERGY AUDITOR 07/02/2024 5:00 PM COMMERCIAL ENERGY AUDITOR us Kimberly Nicolas MD LAB BLOOD ORDERABLES Final Resu lt [facility] [address] Department [place] [address] * (ABNORMAL) Urinalysis reflex to microscopic and culture Urine, clean voided (07/02/2024 10:20 AM COMMERCIAL ENERGY AUDITOR) Color, ur Yellow Yellow Clarity, ur Clear [...] tendency for uric acid stone formation. Source: [facility] [employer] Current Interpretive Data was last revised on [...] CH Urine, clean voided 07/02/2024 10:20 AM COMMERCIAL ENERGY AUDITOR 07/02/2024 5:00 PM COMMERCIAL ENERGY AUDITOR Kimberly Nicolas MD LAB MICROBIOLOGY - GENERAL ORDDidi LEARY Final Result Performing Organization Address [facility] Co de Phone Number [facility] [address] [facility] [place] [address] * (ABNORMAL) Albumin Creatinine Ratio, Urine (07/02/2024 10:20 AM COMMERCIAL ENERGY AUDITOR) Albumin Ur 45.5 mg/L Comment: Interpretive Data No reference range established. Current interpretive data was last revised 2018. Creatinine Ur 73.7 mg/dL [facility] Comment: Interpretive Data No reference range established. Current interpretive data was last revised 2018. Albumin Creatinine Ratio, Ur 62(H) 1 - 29 mg/g [facility] Urine 07/02/2024 10:2 0 AM COMMERCIAL ENERGY AUDITOR 07/02/2024 5:00 PM COMMERCIAL ENERGY AUDITOR Servando Torre MD LAB URINE ORDERABLES Final Result Performing Organization Address [facility] Phone Number [facility] [address] [facility] [place] [address] * (ABNORMAL) Hemoglobin A1c (07/02/2024 10:20 AM COMMERCIAL ENERGY AUDITOR) Hgb A1C 6.4(H) 4.0 - 5.6 % Estimated Average Glucose 137 mg/dL [facility] Comment: The ADA recommends reporting an estimated Average Glucose (eAG) with all Hemoglobin A1c results using the equation derived from a study of 507 normal and diabetic adults. ??Minority populations were underrepresented and children were not included. ?? (Diabetes Care 31:0111-5290, 2008). ??The eAG is not equivalent to a fasting glucose. Blood 07/02/2024 10:2 0 AM COMMERCIAL ENERGY AUDITOR 07/02/2024 5:00 PM COMMERCIAL ENERGY AUDITOR Servando Torre MD LAB BLOOD ORDERABLES Final Result Performing Organization Address [facility] Co de Phone Number [facility] [address] [facility] [place] [address] * Lamotrigine level (07/02/2024 10:20 AM COMMERCIAL ENERGY AUDITOR) Pathologist [facility] Lamotrigine 9.6 3.0 - 15.0 mcg/mL [place] [facility] Comment: ADDITIONAL INFORMATION This test was developed and its performance characteristics determined by [facility] in a manner consistent with CLIA requirements. This test has not been cleared or approved by the U.S. Food and Drug Administration. Test Performed by: [facility] [address] [place] [address] Catering Assistant: Liu Davis Ph.D.; CLIA# [id number] Blood 07/02/2024 10:2 0 AM COMMERCIAL ENERGY AUDITOR 07/02/2024 5:00 PM COMMERCIAL ENERGY AUDITOR us Servando Torre MD LAB BLOOD ORDERABLES Final Result [facility] [address] Department [place] [address] [place] [facility] * (ABNORMAL) Lipid panel (07/02/2024 10:20 AM COMMERCIAL ENERGY AUDITOR) Pathologist [facility] Cholesterol 190 30 - 199 mg/dL Comment: [...] on 2018. Triglycerides 170(H) <=149 mg/dL [facility] Comment: Interpretive Data Ages < [...] NCEP Expert Panel. Circulation 2004;110:227 3. Jayy Melchor et al. IFTIKHAR Cardiol. 2020 November 25;5(5):540-548. [...] last revised on 2018. Chol/HDL ratio 4 [facility] Blood 07/02/2024 10:2 0 AM COMMERCIAL ENERGY AUDITOR 07/02/2024 5:00 PM COMMERCIAL ENERGY AUDITOR us Servando Torre MD LAB BLOOD ORDERABLES Final Result Performing Organization Address City/State/[facility] [employer] vt Phone Number [facility] [address] Department [place] [address] documented in this encounter Visit Diagnoses Diagnosis Hypertension associated with diabetes (HCC) Unspecified essential hypertension Seizure (HCC) Other convulsions Weakness generalized Other malaise and fatigue documented in this encounter Care Teams Manifold Builder Relationship Specialty Start Date End Date Servando Torre MD [address] [facility] [address] [place] [address] PCP - General Family Medicine 06/19/22 Mariela Denton MD [address] [place] [address] Referring Physician Gastroenterology 06/19/22 Lexis Barroso OD [address] [place] [id number] Astronomy Instructor 09/19/22 documented as of this encounter
--- OUTSIDE RECORDS SUMMARY | 2024-07-12 19:41 | XMS_ITS | Encounter Summary ---
Author Organization [facility] Address [address] [place] [address] Phone Care Team Providers Care Stranding Machine Operator Name Role Phone Servando Torre MD Primary Care Provider +1 [phone] Mariela Denton MD Unavailable + -[phone] Lexis Barroso OD Unavailable +1- [phone] Reason for Visit * Reason Comments Dementia Encounter Details Date Type Department Care Team (Late st Contact Info) Description 07/08/2024 3:15 PM POWDER MONKEY Office Visit [facility] [address] [facility] 6th Floor [address] [place] [address] Chelsie Francisco NP [address] [place] [address] Somnolence, daytime (Primary Dx); Memory impairment; Frequent falls; Anxiety Social History Tobacco Use Types Packs/Day Years [...] on file Legal Sex Female 9:30 AM POWDER MONKEY Gender Identity Female 04/05/2022 6:17 PM CDT Sexual Orientation Straight 04/05/2022 6: 17 PM CDT documented as of this encounter Last Filed Vital Signs Vital Sign Reading Time Taken Comments Blood Pressure 129/77 07/08/2024 3:11 PM POWDER MONKEY Pulse 72 07/08/2024 3:11 PM POWDER MONKEY Temperature 36.8 ??C (98.2 ??F) 07/08/2024 3:11 PM CS T Respiratory Rate - - Oxygen Saturation 98% 07/08/2024 3:11 PM POWDER MONKEY Inhaled Oxygen Concentration - - Weight 65.8 kg (145 lb) 07/08/2024 3:11 PM POWDER MONKEY Height 157.5 cm (5' 2 ) 07/08/2024 3:11 PM POWDER MONKEY Body Mass Index 26.52 07/08/2024 3:11 PM POWDER MONKEY documented in this encounter Patient Instructions * Patient Instructions* Chelsie Francisco NP - 07/08/2024 3:15 PM POWDER MONKEY [facility] After Visit Summary SCOUT Vu (Nurse Practitioner) Thank you for coming to the [facility]. We appreciate the opportunity to participate in your care. We have reviewed the concerns about your memory and thinking. Diagnosis: We think that the changes you and your family have observed in your memory and thinking are most likely caused by: Vascular dementia, possible contributions from seizures Medications: Stop Remeron/mirtazipine Additional Resources and Support: Yahaira Ritchie R.N. [facility]ene [employer] [address] [facility] [place] [address] Toll Free: [phone] ext [phone] Email: The best way to reach our team is via My Chart, this is a secure way for us to communicate about your health care. Please call The My Chart Support Desk: [phone] for help with My Chart, or [phone] to obtain a link for access. Future Appointments Date Time Provider Department Center 08/03/2024 8:00 AM [facility] CARD EDW ECHO/VASC CV EDW US MG Decent 08/10/2024 4:30 PM Adria Burleson MD EPI CAM 6C NL 09/23/2024 2:00 PM Teofilo Tang MD MG CAR MRVL Specialty 10/06/2024 2:00 PM Servando Torre MD PCP EDW2 PC 11/10/2024 12:30 PM Adria Burleson MD EPI CAM 6C NL 05/04/2025 3:45 PM Josué Cook MD GI CAM 12B NICE GASTRO We offer in person and telemedicine (virtual) visits. Please let us know your preference when scheduling. ER MONKEY documented in this encounter Progress Notes * Chelsie Francisco NP - 07/08/2024 3:15 PM [facility] OFFICE VISIT Patient Name: RADHA ALLEN Chief Complaint: Memory and thinking difficulty HISTORY OF PRESENT ILLNESS: Ms. Allen is a 79 y.o. lady who comes to the [facility] today for further evaluation of memory and thinking problems. She is in generally fair health. Past medical history significant for epilepsy, tinnitus, diabetes, ulcerative colitis, anemia, renal failure, gastroesophageal reflux disease, hypertension, bradycardia, syncope Collateral Source (CS): Aby Riley (Daughter) Dementia history: She was last evaluated by Dr. Adan in April of 2024, onset of symptoms 2021. Brain MRI from June of 2023 showed generalized atrophy and moderate to severe small-vessel disease. Her last mini-mental status exam score was 28/30, unchanged from score in March of 2023. Clinical dementia rating 0.5, total of box scores 2. Diagnosis most likely vascular with contribution from seizure disorder. Noted seizures had increase since February of 2024, rivastigmine was started around that time and also noting her sleep had worsened. Dr. Nicolas noted this could lower the seizure threshold. Recommended stopping rivastigmine given increase in seizures and consider starting mirtazapine and slowly wean bu spirone. Today's Visit: Daughter thinks the rivastigmine/Exelon may have caused a decline in her cognition. She was treatedfor a Urinary Tract Infection, she was in the hospital, seen in ED for a fall (hit her head), then another fall the same week (confused, took to ED), [facility]. Everything checked out fine. CS is worried the current medications are causing her to be sleepy, she's had more falls. Her memory is worse. She did not have daytime sedation prior to being on Remeron/mirtazipine. As far as CS knows she has not had any further seizures since 03/2024. She is taking Lamotrigine 200 mg BID. CS is very frustrated. She does snore, she has not had a sleep study, she saw a functional medicine doctor who told her that her alpha and beta waves were all over the place. Daughter gives her a chocolatemelatonin every other night. She is getting Lamotrigine 11 am and 7 pm. Sleep: CS unsure, she is in assisted living facility Review of Systems Constitutional: Negative. HENT: Negative. Eyes: Negative. 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 Cardiovascular: Negative. Gastrointestinal: Negative. Genitourinary: Negative. Musculoskeletal: Negative. Skin: Negative. Neurological: Negative. Negative for seizures. Endo/Heme/Allergies: Negative. Psychiatric/Behavioral: Positive for memory loss. Negative for depression. The patient is nervous/anxious. ACTIVE PROBLEMS Patient Active Problem List Diagnosis Arthralgia of [...] with high-risk medication Abnormal liver function tests residential (current) use of oral hypoglycemic drugs Type [...] horn of lateral meniscus of right knee Somnolence, daytime Memory impairment Frequent falls Anxiety ALLERGIES Allergies Allergen Reactions Penicillins Hives She thinks as an adult but is unsure MEDICATIONS Current Outpatient Medications: amLODIPine (NORVASC) 5 mg tablet, Take 1 [...] a day, Disp: 180 tablet, Rfl: 1 multivitamin capsule, Take 1 capsule by mouth [...] mouth nightly, Disp: , Rfl: pravastatin (PRAVACHOL) 80 mg tablet, Take 1 tablet (80 mg total) by mouth nightly, Disp: 30 tablet, Rfl: 3 vedolizumab (ENTYVIO) 300 mg recon soln, Infuse 5 mL (300 mg total) into a venous catheter every 8 (eight) weeks Infused at: [facility] ([facility] order in Epic under 'Procedures' tab)., Disp: 1 each, Rfl: 5 metFORMIN XR (GLUCOPHAGE XR) 750 mg 24 hr tablet, Take 1 tablet (750 mg total) by mouth daily with breakfast, Disp: 30 tablet, Rfl: 11 Family History Problem Relation Age of Onset Atrial fibrillation Mother Breast cancer Mother Stroke Mother Other (afib) Mother Cancer Father Alzheimer's disease Father 70 Social History Tobacco Use Smoking status: Never Passive exposure: Never Smokeless tobacco: Never Substance and Sexual Activity Drug use: Never Sexual activity: Never Alcohol Use: Not At Risk (06/26/2023) AUDIT-C Frequency of Alcohol Consumption: Never Average Number of Drinks: Patient does not drink Frequency of Binge Drinking: Never Medical Records Review: I reviewed [facility] notes and prior Neuropsychometric testing scores. Lab Results Component Value Date TSH 0.72 09/30/2023 Lab Results Component Value Date VITB12 >2,000 (H) 05/30/2022 PHYSICAL EXAM BP 129/77 (BP Location: Left arm, Patient Position: Sitting) Pulse 72 Temp 36.8 ??C (98.2 ??F) (Temporal) Ht 157.5 cm (5' 2 ) Wt 65.8 kg (145 lb) SpO2 98% BMI 26.52 kg/m?? Wt Readings from Last 6 Encounters: 07/08/24 65.8 kg (145 lb) 07/05/24 66.7 kg (147 lb) 05/19/24 67.6 kg (149 lb) 05/13/24 68.5 kg (151 lb) 05/05/24 68.5 kg (151 lb) 05/05/24 68.9 kg (151 lb 12.8 oz) General Assessment There were no orthostatic complaints. Alert, pleasant, cooperative. Cranial Nerves Visual minor testing intact. Pupils were equal, round and reactive to light on left non reactive and pinpoint on left. Extraocular movements were normal with smooth pursuit. Facial movement was symmetric. Hearing was diminished on . Palate elevation was symmetric. Shoulder shrug and head turning were symmetric. Tongue protrusion was midline. Motor Motor exam revealed normal bulk, normal tone, and decreased strength throughout. Fine finger movements were normal. There was no pronator drift. Tremor was absent, bradykinesia was absent. Sensation Sensation was intact to light touch equal bilaterally. Coordination Able to extend arms out with eyes closed and touch nose. Reflexes Reflexes were symmetric at the biceps, brachioradialis and knees. Gait Gait was slow and walks with walker Language: normal 04/09/2023 7:00 AM 05/19/2024 7:[address] [facility] Neurobehavioral Status Exam Results Repository ICF signed? No No Verbal Fluency Total Score 10 8 Dearborn Naming (15 item) Total Score 15 15 MMSE Score 28 28 Word List Memory Task 21 23 Word List Recall 5 6 Short Blessed Total Score 0 0 Logical Memory Total Score 10 11 Trails A - Seconds to complete 54 54 Trails A - Errors 0 0 Trails B - Seconds to complete 180 163 Trails B - Errors 3 5 Total Score (out of 90) 24 -- Digit Symbol Errors 0 Clinical Dementia Ratin04/09/2023 7:00 AM 05/19/2024 7:[address] [facility] CDR/DIAGNOSIS NEW Repository ICF signed? No No Memory 0.5 0.5 Orientation 0.5 0.5 Judgement & Problem Solving 0.5 0.5 Community Affairs 0.5 0 Home & Hobbies 0.5 0.5 Personal Care 1 0 Global Score 0.5 0.5 Sum of Boxes 3.5 2 Year of Onset 2021 2021 Non-AD Dementia Primary Vascular Dementia Vascular Dementia Mood disorder (any type) Active Active Bereavement Active Medication induced cognitive disorder Active Seizure disorder Active Active ASSESSMENT/PLAN: Ms. Allen is a 79 y.o. lady with a history of increased daytime sleepiness, 2 falls, and worsening memory since starting mirtazapine 7.5 mg HS, stopping rivastigmine, and increasing lamotrigine 200 mgBID (facility giving at 11:00 a.m. and 7:00 p.m.) she lives in an assisted living facility, CS is not exactly sure how her sleep has been. The patient denies any trouble sleeping. She has not had anyseizures that CS is aware of since March. She has been seen twice in the emergency department following falls ([facility]), brain imaging normal per CS. She had blood work and was checked for urinary tract infection and was treated for a possible infection back in early May. Her daughter is frustrated as she felt her mother was doing much better on rivastigmine. However we are notclear on what may be the exact culprit of the daytime sleepiness. It could be side effects from lamotrigine could also be from the mirtazapine. I recommended she stop the mirtazapine and we can see how she does over the next few days. Daughter notes she was also taken off of buspirone which never really helped with her anxiety anyway she does have some ongoing issues with anxiety, not really depression. I will touch base with Dr. Nicolas and Dr. Anthony in Epilepsy about possibly restarting the rivastigmine/Exelon (stopped due to concerns of lowering the seizure threshold). PLAN: Stop mirtazapine 7.5 mg Will await further suggestions from Dr. Nicolas and Dr. Anthony and contact daughter via My Chart We discussed options for asleep study, daughter does not think she would cooperate with that at this point. I recommended cameras in her apartment or room to get a better idea if she is really sleeping ADDENDUM 07/12/[address] Anthony and Dr. Nicolas, will continue LMT at current dose andget a drug level. Will retry rivastigmine/Exelon TD 4.6 mg. Sent daughter a My Chart message. Diagnoses and all orders for this visit: Somnolence, daytime (R40.0) (Primary) Memory impairment (R41.3) Frequent falls (R29.6) Anxiety (F41.9) No orders of the defined types were placed in this encounter. Patient Instructions [facility] After Visit Summary SCOUT Vu (Nurse Practitioner) Thank you for coming to the [facility]. We appreciate the opportunity to participate in your care. We have reviewed the concerns about your memory and thinking. Diagnosis: We think that the changes you and your family have observed in your memory and thinking are most likely caused by: Vascular dementia, possible contributions from seizures Medications: Stop Remeron/mirtazipine Additional Resources and Support: Yahaira Ritchie R.N. [employer]ene [employer] [employer] [address] [place] [address] Toll Free: [phone] ext [phone] Email: The best way to reach our team is via My Chart, this is a secure way for us to communicate about your health care. Please call The My Chart Support Desk: [phone] for help with My Chart, or [phone] to obtain a link for access. Future Appointments Date Time Provider Department Center 08/03/2024 8:00 AM [facility] CARD EDW ECHO/VASC CV EDW US MG Decent 08/10/2024 4:30 PM Adria Burleson MD EPI CAM 6C NL 09/23/2024 2:00 PM Teofilo Tang MD [facility] [place] MRVL Specialty 10/06/2024 2:00 PM Servando Torre MD PCP EDW2 PC 11/10/2024 12:30 PM Adria Burleson MD EPI CAM 6C NL 05/04/2025 3:45 PM Josué Cook MD GI CAM 12B [facility] We offer in person and telemedicine (virtual) visits. Please let us know your preference when scheduling. My total encounter time on 07/08/2024 was 65 minutes which was spent in the activities documented in the note. This includes time spent prior to the visit and after the visit in direct care of the patient. This time does not include time spent in any separately reportable services. ER MONKEY ER MONKEY documented in this encounter Plan of Treatment Not on file documented as of this encounter Visit Diagnoses Diagnosis Somnolence, daytime- Primary Memory impairment Memory loss Frequent falls Anxiety Anxiety state, unspecified documented in this encounter Discontinued Medications Medication Sig Discontinue Reason Start Date End Da te acetaminophen (acetaminophen Extra Strength) 500 mg tablet Take 1 tablet (500 mg total) by mouth every 6 (six) hours as needed 09/30/2022 07/08/2024 mirtazapine (REMERON) 7.5 mg tablet Take 1 tablet (7.5 mg total) by mouth nightly 05/28/2024 07/08/2024 documented as of this encounter Care Teams Stranding Machine Operator Relationship Specialty Start Date End Date Servando Torre MD [address] [address] PCP - General Family Medicine 06/19/22 Mariela Denton MD [address] [place] [address] Referring Physician Gastroenterology 06/19/22 Lexis Barroso OD [address] [place] [address] Rocket Scientist 09/19/22 documented as of this encounter
--- OUTSIDE RECORDS SUMMARY | 2024-07-12 19:41 | XMS_ITS | Encounter Summary ---
Author Organization [facility] Healthcare Address [address] [place] [address] Care Team Providers Care Skimmer Name Role Phone Servando Torre MD Primary Care Provider [phone]- [phone] Mariela Denton MD Unavailable +1 [phone] Lexis Barroso OD Unavailable +1- [phone] Reason for Visit * Diagnostic Imaging (Routine) - Closed Specialty Diagnoses / Procedures Referred By Angel t Referred To Contact Diagnoses Accidental fall, subsequent encounter Procedures XR Hip Left 2+ Vw Pricilla Olguin NP [facility] [address] [address] Phone: tel: fax: [facility] Medical Group Referral ID Status Reason Start Date Expiration Date Visits Re quested Visits Authorized [id number] Closed 06/18/2024 07/18/2025 1 1 Encounter Details Date Type Department Care Team (Latest Contact Info) Description 06/18/2024 2:55 PM HOROLOGIST Ancillary Procedure [facility] Medical [facility] Imaging at [address] [address] Accidental fall, subsequent encounter Social [...] on file Legal Sex Female 9:30 AM HOROLOGIST Gender Identity Female 04/05/2022 6:17 PM CDT Sexual Orientation Straight 04/05/2022 6: 17 PM CDT documented as of this encounter Plan of Treatment Not on file documented as of this encounter Procedures Procedure Name Priority Date/Time Associated Diagnosis Comments XR HIP LEFT 2 OR 3 VIEWS Schedule SHIRA, Read SHIRA (Appt Today, Awaiting Results) 06/18/2024 3:04 PM HOROLOGIST Accidental fall, subsequent encounter documented in this encounter Results * XR Hip Left 2+ Vw (06/18/2024 3:04 PM HOROLOGIST) Anatomical Region Laterality Modality Lower Extremities, Hip, Pelvis Left D igital Radiography 06/18/2024 5:05 PM HOROLOGIST Narrative 06/18/2024 5:13 PM HOROLOGIST EXAM DESCRIPTION: XR HIP LEFT 2 OR [...] no change from prior CT. There is eteq-re-eivelrzk multilevel degenerative endplate change with no acute [...] D: ??06/18/2024 5:13 PM T: Report ID: [id number] Reading Location: [id number] Procedure Note Teofilo Rand MD - 06/18/2024 [...] no change from prior CT. There is pcvn-ab-arrjsecj multilevel degenerative endplate change with no acute [...] signed by Teofilo ZAFAR T: Report ID: [id number] Reading Location: [place] [address] Pricilla Olguin NP IMG XR PROCEDURES Final Result documented in this encounter Visit Diagnoses Diagnosis Accidental fall, subsequent encounter documented in this encounter Care Teams Skimmer Relationship Specialty Start Date End Date Servando Torre MD [address] [facility] [place] [address] [place] [address] PCP - General Family Medicine 06/19/22 Mariela Denton MD [address] [place] [address] Referring Physician Gastroenterology 06/19/22 Lexis Barroso OD [address], [place] [address] Publishing Agent 09/19/22 documented as of this encounter
--- OUTSIDE RECORDS SUMMARY | 2024-07-12 19:41 | XMS_ITS | Encounter Summary ---
Author Organization [facility] Address [address] [place] [address] Phone Care Team Providers Care Nuclear Spectroscopist Name Role Phone Servando Torre MD Primary Care Provider +1 [phone] Mariela Denton MD Unavailable + [phone] Lexis Barroso OD Unavailable +1- [phone] Encounter Details Date Type Department Care Team (Late st Contact Info) Description 07/12/[address] [facility] [address] [facility] [facility] 6th [address] [place] [address] Chelsie Francisco NP [address] [place] [address] Social History Tobacco Use Types Packs/Day Years [...] on file Legal Sex Female 9:30 AM HAND MODEL Gender Identity Female 04/05/2022 6:17 PM CDT Sexual Orientation Straight 04/05/2022 6: 17 PM CDT documented as of this encounter Ordered Prescriptions Prescription Sig Dispense Quantity Refills Last Filled Start Date End Date rivastigmine (EXELON) 4.6 mg/[address] 4.6 mg on the skin daily 30 patch 6 07/12/2024 07/12/2025 documented in this encounter Plan of Treatment Not on file documented as of this encounter Visit Diagnoses Not on filedocumented in this encounter Care Teams Nuclear Spectroscopist Relationship Specialty Start Date End Date Servando Torre MD [address] [address] PCP - General Family Medicine 06/19/22 Mariela Denton MD [address] [place] [address] Referring Physician Gastroenterology 06/19/22 Lexis Barroso OD [address] [place] [address] Water Treatment Specialist 09/19/22 documented as of this encounter
--- OUTSIDE RECORDS SUMMARY | 2024-07-12 19:42 | XMS_ITS | Encounter Summary ---
Author Organization [facility] Address [address] [place] [address] Phone Care Team Providers Care Matcher Operator Name Role Phone Servando Torre MD Primary Care Provider +1 [phone] Mariela Denton MD Unavailable +1 [phone] Lexis Barroso OD Unavailable +1- [phone] Encounter Details Date Type Department Care Team (Late st Contact Info) Description 04/02/2024 Telephone [facility] Epilepsy [address] [facility] 6th [place] [address] [place] [address] Sherita Licona, ELMO Social History Tobacco Use Types Packs/Day Years [...] on file Legal Sex Female 9:30 AM TOOL CHASER Gender Identity Female 04/05/2022 6:17 PM CDT Sexual Orientation Straight 04/05/2022 6: 17 PM CDT documented as of this encounter Miscellaneous Notes * Telephone Encounter - Sheirta Licona RN - 04/02/2024 10:29 AM CDT [facility] called to verify lamotrigine Rx. Confirmed that Lisa should be taking Lamotrigine 150 mg bid. Verbalized understanding. documented in this encounter Plan of Treatment Not on file documented as of this encounter Visit Diagnoses Not on filedocumented in this encounter Care Teams Matcher Operator Relationship Specialty Start Date End Date Servando Torre MD [address] [place] [address] PCP - General Family Medicine 06/19/22 Mariela Denton MD [facility] [address] [place] [address] Referring Physician Gastroenterology 06/19/22 Lexis Barroso OD [address] [place] [address] Silver Holloware Assembler 09/19/22 documented as of this encounter
--- OUTSIDE RECORDS SUMMARY | 2024-07-12 19:42 | XMS_ITS | Encounter Summary ---
Author Organization [facility] Healthcare Address [address] [place] [address] Care Team Providers Care Stoneworking Belt Sander Name Role Phone Servando Torre MD Primary Care Provider +1- [phone] Mariela Denton MD Unavailable +1 [phone] Lexis Barroso OD Unavailable +1- [phone] Encounter Details Date Type Department Care Team (Late st Contact Info) Description 03/30/2024 9:15 AM CDT Lab [facility] Outpatient Lab at [address] [address] Anemia (Primary Dx) Social History Tobacco Use Types [...] points, staff should administer the PHQ-9) 0 01/19/2024 Personal Safety Answer Date Recorded Have you ever been in or are you currently in a harmful physical or emotional relationship or is someone making you feel afraid or unsafe? Denies 03/07/2023 Comments No Sex and Gender Information Value Date Recorded Sex Assigned at Not on file Legal Sex Female 9:30 AM GARDEN TRACTOR MECHANIC Gender Identity Female 04/05/2022 6:17 PM CDT Sexual Orientation Straight 04/05/2022 6: 17 PM CDT documented as of this encounter Plan of Treatment Not on file documented as of this encounter Visit Diagnoses Diagnosis Anemia- Primary Unspecified anemia documented in this encounter Care Teams Stoneworking Belt Sander Relationship Specialty Start Date End Date Servando Torre MD [address] [address] PCP - General Family Medicine 06/19/22 Mariela Denton MD [address] [place] [address] Referring Physician Gastroenterology 06/19/22 Lexis Barroso OD [address] [place] [address] Manager Target 09/19/22 documented as of this encounter
--- OUTSIDE RECORDS SUMMARY | 2024-07-12 19:42 | XMS_ITS | Encounter Summary ---
Author Organization [facility] Address [address] [place] [address] Phone Care Team Providers Care Machine Grainer Name Role Phone Servando Torre MD Primary Care Provider [phone] Mariela Denton MD Unavailable [phone] [phone] Lexis Barroso OD Unavailable +1- [phone] Encounter Details Date Type Department Care Team (Late st Contact Info) Description 05/05/2024 9:30 AM CDT Office Visit [facility] Epilepsy [address] 6th [place] [address] [place] [id number] Adria Burleson MD [address] [place] [address] Localization-related symptomatic epilepsy and epileptic syndromes with complex partial seizures, not intractable, without status epilepticus (HCC) (Primary Dx) Social History Tobacco Use Types [...] on file 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 Gender Identity Female 04/05/2022 6:17 PM CDT Sexual Orientation Straight 04/05/2022 6: 17 PM CDT documented as of this encounter Last Filed Vital Signs Vital Sign Reading Time Taken Comments Blood Pressure 168/78 05/05/2024 9:20 AM CDT Pulse 67 05/05/2024 9:20 AM CDT Temperature - - Respiratory Rate - - Oxygen Saturation - - Inhaled Oxygen Concentration - - Weight 68.9 kg (151 lb 12.8 oz) 05/05/2024 9:20 AM CDT Height 157.5 cm (5' 2 ) 05/05/2024 9:20 AM CDT Body Mass Index 27.76 05/05/2024 9:20 AM CDT documented in this encounter Patient Instructions * Patient Instructions* Korin Brannon MD - 05/05/2024 9:30 AM CDT Seizure precautions were reviewed: Do not swim or bathe in a bathtub without direct 1:1 supervision. Avoid open flames. Wear a bicycle helmet if you ride a bicycle. Avoid activity at heights taller than your own height without direct supervision. Do not drive for 6 months following your last seizure. Seizure first-aid was reviewed: Lie the patient on his/her side. Do not put anything in the patient's mouth. Time the seizure. For seizure lasting longer than 5 minutes, call 911 and give rescue medication if prescribed. documented in this encounter Progress Notes * Korin Brannon MD - 05/05/2024 9:30 AM CDT Patient Name: RADHA ALLEN Date of (): 1945 Encounter Date: 05/05/2024 PCP: Servando Torre MD Provider: Raj Cedillo MD Chief complaint: seizure Interval history: - On 03/20 patient pushed the button at her facility and was found to have word soup and impaired responsiveness. As a result, she was transported to [facility]. Her Lamictal was increased to 125 mg BID and Vimpat 125 mg BID (which affected her awareness and gait; plan was to come off in a week) was added due to concerns for seizures (for almost a month). She released from the hospital on 03/23. Her Vimpat was weaned off a month later, which improved her steadiness, and Lamictal was increased to 150 mg BID. On 04/16, patient had an episode of not responding appropriately and fell back slowly without hitting her head. She was taken to OSH where workup was unremkarble and LMG was increased to 175 mg BID and then to 200 mg BID on 04/26. -Tolerating LTG without issues or side effects -Lives in an assisted living facility 79 y.o. 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 OSH MRI showed L splenium of CC chronic hemorrhage /encephalomalacia/gliosis and scattered microhemorrhages and generalized atrophy. [facility] EEG showed right frontotemporal epileptiform discharges and slowing. Prior history from last visit: No seizures Tolerating LTG without issues or side effects Moved to assisted living facility Brain MRI is below, no acute findings No EEGs were done No ASMs were started No clear head injury associated with the seizure ROS+ potential memory issues, however family had noticed cognitive difficulties. Restlessness at night, insomnia and anxiety. Currently on Buspar and rivastigmine for anxiety and memory difficulties but is still having symptoms, respectively. No h/o cardiac issues, tremor PMH: GERD, HLD, HTN, detached retina, UC, DM. PSH: L partial hip replacement / plate, OD retinal detachment procedure, D&C many years ago. SH: lives in an assisted living facility, independent with ADLs. 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 Driving: no (was driving prior to seizure). 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 Additional areas of punctate chronic microhemorrhage are noted suggesting history of hypertension or coagulopathy. Age-appropriate atrophy and chronic ischemic changes. No acute intracranial abnormality is identified. -MRI brain epilepsy protocol 06/2023 (personally reviewed): No MRI evidence to explain the patient's seizures. -EEG at [facility] on 03/07/2023: This is an abnormal awake and stage I and II sleep extended EEG due to 1)occasional, right frontotemporal, poorly formed epileptiform discharges and 2) intermittent right temporal slowing. -Bone density/DEXA scan 12/12/2022: Bone mineral density shows evidence of low bone mass at the lumbar spine and proximal femur and moderately increased fracture risk (osteopenia) Current ASMs: -LTG 200 mg bid Prior ASMs: -Keppra (mood issues) -Vimpat 125 mg BID (mood and balance issues) ----- Physical Exam Vital Signs Vitals: 05/05/24 0920 BP: 168/78 BP Location: Left arm Patient Position: Sitting Pulse: 67 Weight: 68.9 kg (151 lb 12.8 oz) Height: 157.5 cm (5' 2 ) General: Calm and cooperative, no acute distress, accompanied by daughter Neuro: Mental status: Alert, oriented to self and place, not time. Repeating same questions during interview. No overt language issues. No dysarthria. Follows simple commands. Able to do serial 7's without difficulties. Cranial nerves: PERRL, OD (retinal detachment) cannot count fingers (can see lights and shapes) and pupil 1-2 mm nonreactive, EOMI, facial sensation intact to LT, face symmetric, hearing intact to voice on the left,palate symmetric, uvula midline. SCM and traps full strength. Tongue midline. Motor: Strength 5/5 throughout with no drift. Normal tone/bulk. Coordination: Finger to nose intact. Reflexes: previously: Hogue's present on the left but absent on the right, toes mute bilaterally,no clonus. Left Right Biceps (C5) 3 1 Triceps (C7) 3 1 Pronator (C6) 3 1 Patella (L4) 3 1 Achilles (S1) 2 2 Gait: Walks with walker. No tremor Labs: Chemistry Lab Results Component Value Date SODIUM 143 03/30/2024 POTASSIUM 4.0 03/30/2024 CHLORIDE 104 03/30/2024 CO2 30 03/30/2024 ANIONGAP 9 03/30/2024 BUNSER 13 03/30/2024 CREATININE 0.94 03/30/2024 GLUCOSE 157 03/30/2024 CALCIUM 9.8 03/30/2024 BILITOT 0.3 03/30/2024 ALBUMIN 4.4 03/30/2024 GFRNAA 61 03/30/2024 ALKPHOS 105 03/30/2024 AST 24 03/30/2024 ALT 15 03/30/2024 MAGNESIUM 1.9 03/08/2023 TSH 0.72 09/30/2023 HGBA1C 6.8 (H) 03/30/2024 Hematology Lab Results Component Value Date WBC 8.4 03/30/2024 HGB 14.9 03/30/2024 HCT 47.6 (H) 03/30/2024 MCV 92.6 03/30/2024 LABPLAT 308 03/30/2024 NEUTOPHILPCT 64.8 03/30/2024 IMMGRANPCT 0.6 03/30/2024 LYMPHOPCT 21.4 03/30/2024 EOSPCT 3.0 03/30/2024 Assessment/plan: 79 y.o. LHF with a history of focal epilepsy on LTG monotherapy, cognitive issues/vascular dementiawho presents to epilepsy clinic for follow-up. OSH MRI showed L splenium of CC chronic hemorrhage/encephalomalacia/gliosis and scattered microhemorrhages and generalized atrophy. [facility] EEG showed right frontotemporal epileptiform discharges and slowing. Keppra dc'ed due to agitations and sleepiness, Vimpat was pursued and dc'ed shortly after up- titration of LTG for breakthrough seizures. We reviewed the side effects the side effects of LTG and the importance of reporting episodes concerning for se izures Home ASM: -LTG 200 mg bid Recs: -Continue LTG 200 mg bid -Low threshold for EMU admission for spell characterization (it is unclear whether all spells at home are epileptic vs related with her cognitive issues/vascular dementia) -Monitor for toxicity / side effects -Seizure precautions -Continue to follow in memory clinic All questions answered. RTC in 6 months. Korin Brannon M.D. Child Neurology Resident Physician, PGY-5 Division of Pediatric & Developmental Neurology [facility] in [place] Seizure precautions including no driving for at least 6 months after last seizure, heights, swimming or bathing alone, operating heavy machinery or other activities during which a seizure would endanger her or others were discussed. Cosigned by Adria Burleson MD at 05/05/2024 3:29 PM CDT Associated attestation - Adria Burleson MD - 05/05/2024 3:29 PM CDT I have seen and examined the patient. I agree with the findings and plan of care as documented in the resident/fellow's note. My total encounter time on 05/05/2024 was 40 minutes which was spent in the activities documented in the note. This includes time spent prior to the visit and after the visitin direct care of the patient. This time does not include time spent in any separately reportable services. documented in this encounter Plan of Treatment Not on file documented as of this encounter Visit Diagnoses Diagnosis Localization-related symptomatic epilepsy and epileptic syndromes with complex partial seizures, not intractable, without status epilepticus (HCC)- Primary documented in this encounter Care Teams Machine Grainer Relationship Specialty Start Date End Date Servando Torre MD [facility] [address] PCP - General Family Medicine 06/19/22 Mariela Denton MD [address] [place] [address] Referring Physician Gastroenterology 06/19/22 Lexis Barroso OD [address] [place] [address] Cork Molder 09/19/22 documented as of this encounter
--- OUTSIDE RECORDS SUMMARY | 2024-07-12 19:42 | XMS_ITS | Encounter Summary ---
Author Organization [facility] Healthcare Address [address] [place] [address] Care Team Providers Care Training Developer Name Role Phone Servando Torre MD Primary Care Provider [phone] Mariela Denton MD Unavailable [phone] Lexis Barroso OD Unavailable [phone]- [phone] Reason for Visit * Reason Comments Follow-up 3 month f/u Encounter Details Date Type Department Care Team (Late st Contact Info) Description 04/01/2024 2:00 PM CDT Office Visit [facility] Primary Care at [address] [address] Servando Torre MD [address] [place] [address] [address] [place] [address] Hypertension associated with diabetes (HCC) (Primary Dx); Mixed diabetic hyperlipidemia associated with type 2 diabetes mellitus (HCC) Social History Tobacco Use Types Packs/Day Years [...] on file 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 Gender Identity Female 04/05/2022 6:17 PM CDT Sexual Orientation Straight 04/05/2022 6: 17 PM CDT documented as of this encounter Last Filed Vital Signs Vital Sign Reading Time Taken Comments Blood Pressure 122/70 04/01/2024 2:07 PM CDT Pulse 72 04/01/2024 2:07 PM CDT Temperature 36 ??C (96.8 ??F) 04/01/2024 2:07 PM CDT Respiratory Rate 18 04/01/2024 2:07 PM CDT Oxygen Saturation 98% 04/01/2024 2:07 PM CDT Inhaled Oxygen Concentration - - Weight 68 kg (150 lb) 04/01/2024 2:07 PM CDT Height 157.5 cm (5' 2 ) 04/01/2024 2:07 PM CDT Body Mass Index 27.44 04/01/2024 2:07 PM CDT documented in this encounter Patient Instructions * Patient Instructions* Servando Torre MD - 04/01/2024 2:00 PM CDT Stable on the a1c Continuing current regimen Blood counts are fine Cholesterol is in good shape Triglycerides borderline elevated- cut back on saturated fats, simple (sugary) carbs and starches Kidney function is acceptable Thanks for coming in today! My medical assistants and I are thankful you have trusted us with your care, and hope that you received EXCELLENT care today! Please do not hesitate to call if you have any questions or concerns at [phone]. You may receive a phone call, text, MYCHART message, or e-mail asking about your care today. We would love to hear your feedback on how EXCELLENT your care wastoday! Wishing you better health, always. Dr. Torre * Attachments The following attachments cannot be sent through Care Everywhere. * Meal Planning with Diabetes Exchanges (Hedis Manager) (Bolivian) documented in this encounter Progress Notes * Servando Torre MD - 04/01/2024 2:00 PM CDT SUBJECTIVE: Chief Complaint Patient presents with Follow-up 3 month f/u 79 y.o. female for follow up of diabetes, hypertension, hyperlipidemia, UC. Diabetic Review of Systems - medication compliance: compliant all of the time, diabetic diet compliance: noncompliant some of the time, home glucose monitoring: is performed sporadically, further diabetic ROS: no polyuria or polydipsia, no chest pain, dyspnea or TIA's, no numbness, tingling or pain in extremities, no hypoglycemia. Current Outpatient Medications Medication Sig Dispense Refill amLODIPine (NORVASC) 5 mg tablet Take 1 tablet (5 mg total) by mouth daily 90 tablet 1 aspirin 81 mg enteric coated tablet Take 1 tablet (81 mg total) by mouth daily 90 tablet 3 busPIRone (BUSPAR) 5 mg tablet Take 1 tablet (5 mg total) by mouth 2 (two) times a day 60 tablet 2 calcium citrate-vitamin D3 (Citracal + D Maximum) 315 mg-6.25 mcg (250 unit) per tablet Take 1 tablet by mouth daily 90 tablet 3 cholecalciferol (VITAMIN D-3) 2000 unit tablet Take 1 tablet (2,000 Units total) by mouth daily LowVitamin D level from 05/30/2022. 90 tablet 3 ferrous sulfate ER 324 mg (65 mg iron) EC tablet Take 1 tablet (324 mg total) by mouth daily with breakfast 90 tablet 1 lacosamide (VIMPAT) 100 mg tablet lamoTRIgine (LaMICtal) 100 mg tablet Take 1 tablet (100 mg total) by mouth 2 (two) times a day (Patient taking differently: Take 1 tablet (100 mg total) by mouth 2 (two) times a day 125mg bid) 180 tablet 1 losartan (COZAAR) 100 mg tablet Take 1 tablet (100 mg total) by mouth nightly melatonin tablet Take 1 tablet (3 mg total) by mouth 3 (three) times a week mesalamine (APRISO) 0.375 gram 24 hr capsule Take 2 capsules by mouth in the morning and 2 capsulesin the evening 120 capsule 5 metFORMIN XR (GLUCOPHAGE XR) 750 mg 24 hr tablet Take 1 tablet (750 mg total) by mouth daily with breakfast 30 tablet 11 metoprolol tartrate (LOPRESSOR) 50 mg immediate release tablet Take 1 tablet (50 mg total) by mouth2 (two) times a day 180 tablet 1 multivitamin capsule Take 1 capsule by mouth daily OneTouch Delica Plus Lancet 33 gauge misc 1 each by other route daily To check glucose with glucosemonitor and strip 100 each 3 OneTouch Ultra Test strip 1 each by other route daily To check blood glucose [address] (PROTONIX) 40 mg EC tablet Take 1 tablet (40 mg total) by mouth nightly pravastatin (PRAVACHOL) 40 mg tablet Take 1 tablet (40 mg total) by mouth nightly rivastigmine (EXELON) 4.6 mg/[address] 4.6 mg on the skin daily 30 patch 1 vedolizumab (ENTYVIO) 300 mg recon soln Infuse 5 mL (300 mg total) into a venous catheter every 8 (eight) weeks Infused at: [facility] ([facility]F order in [facility] under 'Procedures' tab). 1 each 5 acetaminophen (acetaminophen Extra Strength) 500 mg tablet Take 1 tablet (500 mg total) by mouth every 6 (six) hours as needed (Patient not taking: Reported on 04/01/2024) No current facility-administered medications for this visit. OBJECTIVE: BP 122/70 (BP Location: Right arm, Patient Position: Sitting) Pulse 72 Temp 36 ??C (96.8 ??F) (Temporal) Resp 18 Ht 157.5 cm (5' 2 ) Wt 68 kg (150 lb) SpO2 98% BMI 27.44 kg/m?? Physical Exam Vitals reviewed. Constitutional: Appearance: She is overweight. HENT: Head: Normocephalic and atraumatic. Neck: Vascular: No carotid bruit. Cardiovascular: Rate and Rhythm: Normal rate and regular rhythm. Pulses: Dorsalis pedis pulses are 2+ on the right side and 2+ on the left side. Heart sounds: Murmur heard. No friction rub. No gallop. Pulmonary: Breath sounds: No wheezing, rhonchi or rales. Abdominal: Tenderness: There is no abdominal tenderness. Musculoskeletal: Right lower leg: No edema. Left lower leg: No edema. Right foot: Deformity (hallux valgus) present. Left foot: Deformity (hallux valgus) present. Feet: Right Foot: Monofilament exam: normal. Protective Sensation: 6 sites tested. 6 sites sensed. Skin Integrity: Positive for callus. Negative for ulcer. Left Foot: Monofilament exam: normal. Protective Sensation: 6 sites tested. 6 sites sensed. Skin Integrity: Positive for callus. Negative for ulcer. Neurological: Mental Status: She is alert and oriented to person, place, and time. Mental status is at baseline. Lab/Current Medication Review: No results found for this or any previous visit (from the past 24 hour(s)). No results found. Diagnoses and all orders for this visit: Hypertension associated with diabetes (HCC) (Primary) - Albumin Creatinine Ratio, Urine; Future - Hemoglobin A1c; Future Mixed diabetic hyperlipidemia associated with type 2 diabetes mellitus (HCC) - Albumin Creatinine Ratio, Urine; Future - Hemoglobin A1c; Future documented in this encounter Plan of Treatment Not on file documented as of this encounter Visit Diagnoses Diagnosis Hypertension associated with diabetes (HCC)- Primary Unspecified essential hypertension Mixed diabetic hyperlipidemia associated with type 2 diabetes mellitus (HCC) documented in this encounter Discontinued Medications Medication Sig Discontinue Reason Start Date End Da te lacosamide (VIMPAT ORAL) Take by mouth Duplicate order 024 documented as of this encounter Historical Medications * This list may reflect changes made after this encounter. lacosamide (VIMPAT) 100 mg tablet Take 0.5 tablets (50 mg total) by mouth 2 (two) times a day 04/09/2024 04/09/2024 added in this encounter Care Teams Training Developer Relationship Specialty Start Date End Date Servando Torre MD [address] [address] PCP - General Family Medicine 06/19/22 Mariela Denton MD [address] [place] [address] Referring Physician Gastroenterology 06/19/22 Lexis Barroso OD [address] [place] [address] Automobile Damage Appraiser 09/19/22 documented as of this encounter
--- OUTSIDE RECORDS SUMMARY | 2024-07-12 19:42 | XMS_ITS | Encounter Summary ---
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 1 each 5 04/29/2023 acetaminophen (acetaminophen Extra Strength) 500 mg tablet Take 1 tablet (500 mg total) by mouth every 6 (six) hours as needed 09/30/2022 4 busPIRone (BUSPAR) 5 mg tabletIndications:Ge neralized Anxiety Disorder Take 1 tablet (5 mg total) by mouth 2 (two) times a day 60 tablet 2 07/07/2023 4 lamoTRIgine (LaMICtal) 150 mg tablet Take 1 tablet (150 mg total) by mouth 2 (two) times a day 180 tablet 1 04/01/2024 4 lamoTRIgine (LaMICtal) 25 mg tablet 04/17/2024 4 pravastatin (PRAVACHOL) 40 mg tabletIndications:Mi xed diabetic hyperlipidemia associated with type 2 diabetes mellitus (HCC) Take 1 tablet (40 mg total) by mouth nightly 01/01/2024 4 rivastigmine (EXELON) 4.6 mg/[address] 4.6 mg on the skin daily 30 patch 1 11/17/2023 4 documented as of this encounter Discharge Disposition Disposition Code Departure Means Destination Discharge to home or self care documented in this encounter Plan of Treatment Not on file documented as of this encounter Procedures Procedure Name Priority Date/Time Associated Diagnosis Comments LAMOTRIGINE LEVEL Routine 04/27/2024 11: 52 AM CDT Localization-related symptomatic epilepsy and epileptic syndromes with complex partial seizures, not intractable, without status epilepticus (HCC) documented in this encounter Results * Lamotrigine level (04/27/2024 11:52 AM CDT) Lamotrigine 6.3 3.0 - 15.0 mcg/mL [facility] Comment: ADDITIONAL INFORMATION This test was developed and its performance characteristics determined by [facility] in a manner consistent with CLIA requirements. This test has not been cleared or approved by the U.S. Food and Drug Administration. Test Performed by: [facility] [place] [address] Front Office Java Developer: Liu Davis Ph.D.; CLIA# [id number] Blood 04/27/2024 11:5 2 AM CDT 04/27/2024 7:35 PM CDT us Adria Diop MD LAB BLOOD OR DERABLES Final Result Performing Organization Address City/State/[facility] Co de Phone Number AILEEN [address] [address] [place] [address] [facility] documented in this encounter Visit Diagnoses Diagnosis Localization-related symptomatic epilepsy and epileptic syndromes with complex partial seizures, not intractable, without status epilepticus (HCC) documented in this encounter Care Teams Destaticizer Feeder Relationship Specialty Start Date End Date Servando Torre MD [address] [address] PCP - General Family Medicine 06/19/22 Mariela Denton MD [address] [place] [address] Referring Physician Gastroenterology 06/19/22 Lexis Barroso OD [address] [place] [address] Magnetic Tape Composer Operator 09/19/22 documented as of this encounter
--- OUTSIDE RECORDS SUMMARY | 2024-07-12 19:42 | XMS_ITS | Encounter Summary ---
Author Organization [facility] Address [address] [place] [address] Phone Care Team Providers Care Machine Cell Tuber Name Role Phone Servando Torre MD Primary Care Provider [phone] [phone] Mariela Denton MD Unavailable [phone] -[phone] Lexis Barroso OD Unavailable +1- [phone] Encounter Details Date Type Department Care Team (Late st Contact Info) Description 05/05/2024 3:45 PM CDT Office Visit [facility] Gastroenterology [address] 12th [place] [address] [place] [address] Josué Cook MD [address] [facility] [address] [place], [place] [id number] Chronic ulcerative colitis, unspecified complication (HCC) (Primary Dx) Social History Tobacco Use [...] on file Legal 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 Gender Identity Female 04/05/2022 6:17 PM CDT Sexual Orientation Straight 04/05/2022 6: 17 PM CDT documented as of this encounter Last Filed Vital Signs Vital Sign Reading Time Taken Comments Blood Pressure 133/67 05/05/2024 3:54 PM CDT Pulse 62 05/05/2024 3:54 PM CDT Temperature 36.7 ??C (98 ??F) 05/05/2024 3:54 PM CDT Respiratory Rate - - Oxygen Saturation 93% 05/05/2024 3:54 PM CDT Inhaled Oxygen Concentration - - Weight 68.5 kg (151 lb) 05/05/2024 3:54 PM CDT Height 157.5 cm (5' 2 ) 05/05/2024 3:54 PM CDT Body Mass Index 27.62 05/05/2024 3:54 PM CDT documented in this encounter Progress Notes * Josué Cook MD - 05/05/2024 3:45 PM CDT Images from the original note were not included. [facility] Department of Gastroenterology Reason for the visit: follow up, ulcerative colitis Current IBD Medications: Entyvio 300 mg every 8 weeks, azathioprine 75 mg, Apriso Problem List: Ulcerative colitis: The patient was diagnosed in February 2020, when she presented with abdominal pain and was found to have chronic san-ulcerative colitis; she was initially treated with steroids as well as mesalamine, but the patient did not respond well and was started on low-dose azathioprine in December 2021 (50 mg) monotherapy. The dose was escalated to 10 mg, however despite dose escalation the patient did not respond effectively. At that outset, the patient was commenced on Entyvio every 8 weeks and azathioprine and Apriso were continued. Her colonoscopy in November 2022 was consistent with remission with some residual loss of vascularity in the rectosigmoid colon. 2. Liver lesion: incidentally discovered on MRi from Mar 2023 during evaluation of renal lesion. The lesion is 1.5 x 1.6 in hepatic segment 4A. History of present illness: The patient was last seen in the GI clinic in April 2023. She continues to do well. No abdominal pain or diarrhea. Compliant with her medications. Past Medical & Surgical history: Prediabetes Family History: The patient has no known family history of inflammatory bowel disease or any autoimmune disease. No family history of colon cancer Social History: The patient is nonsmoker. No illicit drug use. Allergy: as listed in the patient's chart Review of Systems: Review of systems is negative except of the symptoms described above in the HPI Physical Exam: BP 133/67 Pulse 62 Temp 36.7 ??C (98 ??F) (Temporal) Ht 157.5 cm (5' 2 ) Wt 68.5 kg (151 lb) SpO2 93% BMI 27.62 kg/m?? General: Well-appearing, in no acute distress. HEENT: Sclerae anicteric. Oropharynx without lesion.Neck: Supple without lymphadenopathy or thyromegaly. Lungs: Clear to auscultation bilaterally, breath sounds symmetrical bilaterally. Cardiovascular: Regular rate and rhythm with no murmur, rub or gallop. Abdomen: Flat, soft, non-tender; bowel sounds normal active in all four quadrants, no hepatosplenomegaly, or palpable masses. Extremities: No clubbing, cyanosis or edema. Skin: No rash or jaundice. Neurologic: Grossly normal Labs: I have personally reviewed all labs, images, endoscopies and pathology findings. Assessment & plan Lisa is a pleasant woman with a history of san-ulcerative colitis diagnosed in 2019. Despite trying conventional therapies including oral mesalamine and azathioprine, she didn't respond well. Currently, she's undergoing her first biologic treatment, vedolizumab, which has shown a very good response, achieving mucosal remission. In my opinion, continuing azathioprine doesn't seem beneficial. Therefore, I will discontinue and monitor vedolizumab trough level and anticipatory symptoms closely. Regarding her incidentally discovered liver lesion, there are no high-risk features observed in this lesion. However, we will evaluate again with the patient's next ultrasound for her kidneys. That are any suspicious stigmata, we will consider triple phase MRI Follow up in April 2025 Josué Cook MD Warper Creelerman[employer] engine Department of Gastroenterology [facility] OUT MANAGER documented in this encounter Plan of Treatment Not on file documented as of this encounter Visit Diagnoses Diagnosis Chronic ulcerative colitis, unspecified complication (HCC)- Primary documented in this encounter Care Teams Machine Cell Tuber Relationship Specialty Start Date End Date Servando Torre MD [address] [facility] [address] [place] [address] PCP - General Family Medicine 06/19/22 Mariela Denton MD [address] [place] [address] Referring Physician Gastroenterology 06/19/22 Lexis Barroso OD [address] [place] [address] Observer Helper 09/19/22 documented as of this encounter
--- OUTSIDE RECORDS SUMMARY | 2024-07-12 19:42 | XMS_ITS | Encounter Summary ---
Author Organization [facility] Healthcare Address [address] [place] [address] Care Team Providers Care Transfer Professor Name Role Phone Servando Torre MD Primary Care Provider Mariela Denton MD Unavailable [phone] [phone] Lexis Barroso OD Unavailable +1- [phone] Reason for Visit * Reason Onset Date Comments Knee Injury 05/12/2024 Encounter Details Date Type Department Care Team (Late st Contact Info) Description 05/12/2024 Nurse Triage [facility] Medical Group Primary Care at [address] [address] Servando Torre MD [address] [place] [address] [address] [place] [address] Social History Tobacco Use Types Packs/Day Years [...] on file 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 Pain: unknown /10. Symptoms:CasperDTDarian Gerald (HIPAA verified) reported- (not with patient) patient c/o: right knee injury- fell onto her knees when getting up from the toilet yesterday, knee is stiff, able to bear weight, bending slowly. Patient walked from bed to chair today. Patient lives at the [facility]. Denies: other symptoms Relevant Meds: elevating leg Relevant HX of: KATERINA 04/01/24. HTN, DM 2, bradycardia,, seizure, dementia, syncope Home Care Instructions/Education given: Patient verbalizes understanding of the instructions, is comfortable with the plan aSee today in office. Disposition per guideline:See in office today. No appt available in office or CC EDW today. Jeannie will bring her for an Appt 05/13/24 CC EDW 12 pm with provider. Pharmacy and allergies were verified. Reason for Disposition Patient wants to be seen Protocols used: Knee [id number] * Telephone Encounter - Leena Hoskins RN - 05/12/2024 10:45 AM CDT Regarding: Fell on knees coming from bathroom ----- Message from Britany Pratt sent at 05/12/2024 10:43 AM CDT ----- Symptom Based Call Chief Complaint(s): Fell on knees coming from bathroom Duration: yesterday What type of symptom(s) is the patient experiencing? Red Flag. Is the patient concerned they are experiencing a medical emergency requiring an ambulance? No Additional Comments: Pt is currently on living facility and was advised to call pt's doctor. Granddaughter is on HIPAA. Does message need to be routed? Yes-Action Needed documented in this encounter Plan of Treatment Not on file documented as of this encounter Visit Diagnoses Not on filedocumented in this encounter Care Teams Transfer Professor Relationship Specialty Start Date End Date Servando Torre MD [address] [facility] [address] [place] [address] PCP - General Family Medicine 06/19/22 Mariela Denton MD [address] [facility] [address] [place] [address] Referring Physician Gastroenterology 06/19/22 Lexis Barroso OD [address] [place] [address] Sumac Tanner 09/19/22 documented as of this encounter
--- OUTSIDE RECORDS SUMMARY | 2024-07-12 19:42 | XMS_ITS | Encounter Summary ---
Author Organization [facility] Healthcare Address [address] [place] [address] Care Team Providers Care Copy Clerk Name Role Phone Servando Torre MD Primary Care Provider Mariela Denton MD Unavailable [phone] [phone] Lexis Barroso OD Unavailable +1- [phone] Reason for Visit * Reason Onset Date Comments Medical Records Request 02/18/2024 Encounter Details Date Type Department Care Team (Late st Contact Info) Description 02/18/2024 Telephone [facility] Medical Group Primary Care at [address] [address] Servando Torre MD [address] [place] [address] [address] [place] [address] Medical Records Request Social History Tobacco Use Types Packs/Day [...] on file 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 LMOM letting pt's daughter know * Telephone Encounter - Shelia Cobb - 02/18/2024 12:59 PM CDT Medical Records Request Request Type: Records Request Practice Will Complete What records are being requested: records of cognitive testing, documentation stating that patient cannot live alone. Who will the records be sent to (if being sent to another doctor, list the doctor's name and specialty)? Pt' daughter Date Needed: as soon as possible Delivery Method: learning support services director at practice Additional Comments: Pt daughter is calling stating that she spoke with insurance company and they are fighting her claim and is stating that she doesn't need to live in an assisted facility. She is needing documentation that she is unable to live alone and unable to fully make decisions alone without assistance Does message need to be routed? Yes-Action Needed documented in this encounter Plan of Treatment Not on file documented as of this encounter Visit Diagnoses Not on filedocumented in this encounter Care Teams Copy Clerk Relationship Specialty Start Date End Date Servando Torre MD [address] [address] PCP - General Family Medicine 06/19/22 Mariela Denton MD [address] [place] [address] Referring Physician Gastroenterology 06/19/22 Lexis Barroso OD [address] [place] [address] Replenishment Specialist 09/19/22 documented as of this encounter
--- OUTSIDE RECORDS SUMMARY | 2024-07-12 19:42 | XMS_ITS | Encounter Summary ---
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 KN D: ??05/13/2024 4:47 PM T: Report ID: [id number] Reading Location: ??[id number] Procedure Note Dylan Zuniga MD - 05/13/2024 [...] signed by Dylan CARROLL T: Report ID: [id number] Reading Location: [place] [address] Mara Almendarez POLICE CHIEF IMG XR PROCEDURES Final Re sult documented in this encounter Visit Diagnoses Diagnosis Fall, initial encounter documented in this encounter Care Teams Credit Rating Checker Relationship Specialty Start Date End Date Servando Torre MD [address] [facility] 130 [place] [address] PCP - General Family Medicine 06/19/22 Mariela Denton MD [address] [place] [address] Referring Physician Gastroenterology 06/19/22 Lexis Barroso OD [address] [place] [address] Door Opener 09/19/22 documented as of this encounter
--- OUTSIDE RECORDS SUMMARY | 2024-07-12 19:42 | XMS_ITS | Encounter Summary ---
Author Organization [facility] Healthcare Address [address] [place] [address] Care Team Providers Care Risk Control Analyst Name Role Phone Servando Torre MD Primary Care Provider Mariela Denton MD Unavailable [phone] -[phone] eLxis Barroso OD Unavailable +1- [phone] Reason for Visit * Reason Onset Date Comments Medical Question/Miscellaneous 03/30/2024 Encounter Details Date Type Department Care Team (Late st Contact Info) Description 03/30/2024 Telephone [facility] Medical Group Primary Care at [address] [address] Servando Torre MD [address] [place] [address] [address] [place] [address] Medical Question/Miscellaneous Social History Tobacco Use Types Packs/Day Years [...] on file 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 Confirmed that there are still orders Does message need to be routed? No documented in this encounter Plan of Treatment Not on file documented as of this encounter Visit Diagnoses Not on filedocumented in this encounter Care Teams Risk Control Analyst Relationship Specialty Start Date End Date Servando Torre MD [facility] [address] [address] PCP - General Family Medicine 06/19/22 Mariela Denton MD [address] [place] [address] Referring Physician Gastroenterology 06/19/22 Lexis Barroso OD [address] [place] [address] Termite Renewal Inspector 09/19/22 documented as of this encounter
--- OUTSIDE RECORDS SUMMARY | 2024-07-12 19:42 | XMS_ITS | Encounter Summary ---
Author Organization [facility] Address [address] [place] [address] Phone Care Team Providers Care Patrol Deputy Sheriff Name Role Phone Servando Torre MD Primary Care Provider [phone] [phone] Mariela Denton MD Unavailable [phone] -[phone] Lexis Barroso OD Unavailable +1- [phone] Encounter Details Date Type Department Care Team (Late st Contact Info) Description 05/18/2024 Orders Only [facility] Gastroenterology [address] [facility] 12th [place] [address] [place] [address] Ayala Mobley RN Chronic ulcerative colitis, unspecified complication (HCC) (Primary Dx); High risk medications (not anticoagulants) long-term use; Healthcare maintenance; Encounter for screening for other viral diseases Social History Tobacco Use Types Packs/Day Years [...] on file Legal Sex Female 9:[address] Gender Identity Female 04/05/2022 6:17 PM CDT Sexual Orientation Straight 04/05/2022 6: 17 PM CDT documented as of this encounter Plan of Treatment Scheduled Orders Name Type Priority Associated Diagnoses Orde r Schedule Hepatitis B core antibody, total Blood Microbiology Routine Chronic ulcerative colitis, unspecified complication (HCC) High risk medications (not anticoagulants) long-term use Healthcare maintenance Encounter for screening for other viral diseases Expected: 05/18/2024, Expires: 11/16/2025 Hepatitis B surface antibody (immune status) Blood Microbiology Routine Chronic ulcerative colitis, unspecified complication (HCC) High risk medications (not anticoagulants) long-term use Healthcare maintenance Encounter for screening for other viral diseases Expected: 05/18/2024, Expires: 11/16/2025 Hepatitis B Surface Antigen Blood Microbiology Routine Chronic ulcerative colitis, unspecified complication (HCC) High risk medications (not anticoagulants) long-term use Healthcare maintenance Encounter for screening for other viral diseases Expected: 05/18/2024, Expires: 11/16/2025 TB test, quantiferon gold Lab Routine Chronic ulcerative colitis, unspecified complication (HCC) High risk medications (not anticoagulants) long-term use Healthcare maintenance Expected: 05/18/2024, Expires: 05/18/2025 documented as of this encounter Visit Diagnoses Diagnosis Chronic ulcerative colitis, unspecified complication (HCC)- Primary High risk medications (not anticoagulants) long-term use Encounter for long-term (current) use of other medications Healthcare maintenance Encounter for screening for other viral diseases documented in this encounter Care Teams Patrol Deputy Sheriff Relationship Specialty Start Date End Date Servando Torre MD [address] [address] PCP - General Family Medicine 06/19/22 Mariela Denton MD [address] [place] [address] Referring Physician Gastroenterology 06/19/22 Lexis Barroso OD [address] [place] [address] Credentialing Assistant 09/19/22 documented as of this encounter
--- OUTSIDE RECORDS SUMMARY | 2024-07-12 19:42 | XMS_ITS | Encounter Summary ---
Author Organization [facility] Healthcare Address [address] [place] [address] Care Team Providers Care Call Centre Supervisor Name Role Phone Servando Torre MD Primary Care Provider Mariela Denton MD Unavailable [phone] [phone] Lexis Barroso OD Unavailable +1- [phone] Reason for Visit * Reason Onset Date Comments Medical Question/Miscellaneous 04/23/2024 Encounter Details Date Type Department Care Team (Late st Contact Info) Description 04/23/2024 Telephone [facility] Medical Group Primary Care at [address] [address] Servando Torre MD [address] [place] [address] [address] [place] [address] Medical Question/Miscellaneous Social History Tobacco [...] on file 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 Does message need to be routed? No documented in this encounter Plan of Treatment Not on file documented as of this encounter Visit Diagnoses Not on filedocumented in this encounter Care Teams Call Centre Supervisor Relationship Specialty Start Date End Date Servando Torre MD [address] [address] PCP - General Family Medicine 06/19/22 Mariela Denton MD [facility] [address] [place] [address] Referring Physician Gastroenterology 06/19/22 Lexis Barroso OD [address] [place] [address] Bookmaker'S Clerk 09/19/22 documented as of this encounter
--- OUTSIDE RECORDS SUMMARY | 2024-07-12 19:42 | XMS_ITS | Encounter Summary ---
Author Organization [facility] Healthcare Address [address] [place] [address] Care Team Providers Care Chief Projectionist Name Role Phone Servando Torre MD Primary Care Provider Mariela Denton MD Unavailable [phone] [phone] Lexis Barroso OD Unavailable +1- [phone] Encounter Details Date Type Department Care Team (Late st Contact Info) Description 2024 Orders Only [facility] Medical Group Primary Care at [address] [address] Servando Torre MD [address] [place] [address] [address] [place] [address] Social History Tobacco Use Types [...] on file 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 lacosamide (VIMPAT ORAL) Take by mouth 04/01/2024 added in this encounter Care Teams Chief Projectionist Relationship Specialty Start Date End Date Servando Torre MD [address] [facility] [address] [place] [address] PCP - General Family Medicine 06/19/22 Mariela Denton MD [facility] [address] [place] [address] Referring Physician Gastroenterology 06/19/22 Lexis Barroso OD [address] [place] [address] University Internship 09/19/22 documented as of this encounter
--- OUTSIDE RECORDS SUMMARY | 2024-07-12 19:42 | XMS_ITS | Encounter Summary ---
Author Organization [facility] Healthcare Address [address] [place] [address] Care Team Providers Care Field Software Engineer Name Role Phone Servando Torre MD Primary Care Provider Mariela Denton MD Unavailable [phone] [phone] Lexis Barroso OD Unavailable +1- [phone] Encounter Details Date Type Department Care Team (Late st Contact Info) Description 02/18/2024 Telephone [facility] Medical Group Primary Care at [address] [address] Servando Torre MD [address] [place] [address] [address] [place] [address] Social History Tobacco Use Types [...] on file 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 Gender Identity Female 04/05/2022 6:17 PM CDT Sexual Orientation Straight 04/05/2022 6: 17 PM CDT documented as of this encounter Miscellaneous Notes * Telephone Encounter - Shelia Cobb - 02/18/2024 1:12 PM CDT Opened message in error documented in this encounter Plan of Treatment Not on file documented as of this encounter Visit Diagnoses Not on filedocumented in this encounter Care Teams Field Software Engineer Relationship Specialty Start Date End Date Servando Torre MD [facility] [address] PCP - General Family Medicine 06/19/22 Mariela Denton MD [address] [place] [address] Referring Physician Gastroenterology 06/19/22 Lexis Barroso OD [address] [place] [address] Unemployment Inspector 09/19/22 documented as of this encounter
--- OUTSIDE RECORDS SUMMARY | 2024-07-12 19:42 | XMS_ITS | Encounter Summary ---
Author Organization [facility] Healthcare Address [address] [place] [address] Care Team Providers Care Silvering Applicator Name Role Phone Servando Torre MD Primary Care Provider [phone]- [phone] Mariela Denton MD Unavailable [phone] [phone] Lexis Barroso OD Unavailable +1- [phone] Encounter Details Date Type Department Care Team (Late st Contact Info) Description 04/27/2024 11:[address] 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 ([place], [place] [address] [place] [address] PCP - General Family Medicine 06/19/22 Mariela Denton MD [address] [facility] [address] [place] [address] Referring Physician Gastroenterology 06/19/22 Lexis Barroso OD [address] [place] [address] Office Services Assistant 09/19/22 documented as of this encounter
--- OUTSIDE RECORDS SUMMARY | 2024-07-12 19:42 | XMS_ITS | Encounter Summary ---
Author Organization [facility] Healthcare Address [address] [place] [address] Care Team Providers Care Vp Scientific Name Role Phone Servando Torre MD Primary Care Provider Mariela Denton MD Unavailable [phone] Lexis Barroso OD Unavailable +1- [phone] Encounter Details Date Type Department Care Team (Late st Contact Info) Description 05/15/2024 Telephone [facility] [place] [address] [place] [address] Pricilla Olguin NP 2 [facility] [address] [place] [address] Social History Tobacco Use Types [...] on file 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 for complaints of confusion. I called patient's daughter Aby at 10:35am spoke to her as patient was seen in [facility] 2 days ago post fall after hitting her head. Patient's daughter states pt is confused. I recommend that patient's daughter take Lisa directly to the emergency room for further evaluation and treatment. Daughter states understanding states she will take her to ED. documented in this encounter Plan of Treatment Not on file documented as of this encounter Visit Diagnoses Not on filedocumented in this encounter Care Teams Vp Scientific Relationship Specialty Start Date End Date Servando Torre MD [facility] [address] PCP - General Family Medicine 06/19/22 Mariela Denton MD [facility] [address] [place] [address] Referring Physician Gastroenterology 06/19/22 Lexis Barroso OD [address] [place] [address] Engineer Steam 09/19/22 documented as of this encounter
--- OUTSIDE RECORDS SUMMARY | 2024-07-12 19:42 | XMS_ITS | Encounter Summary ---
Author Organization [facility] Healthcare Address [address] [place] [address] Care Team Providers Care Maintenance Operator Name Role Phone Servando Torre MD Primary Care Provider [phone] Mariela Denton MD Unavailable [phone] [phone] Lexis Barroso OD Unavailable +- [phone] Reason for Visit * Reason Comments Knee Pain Patient here for c/o right knee and back pain after fall on Friday at assisted living facility. Patient also states she hurt the back of her head, c/o excessive sleepiness and has not felt like herself the last two days. 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 Gender Identity Female 04/05/2022 6:17 PM CDT Sexual Orientation Straight 04/05/2022 6: 17 PM CDT documented as of this encounter Last Filed Vital Signs Vital Sign Reading Time Taken Comments Blood Pressure 134/78 05/13/2024 12:04 PM CDT Pulse 95 05/13/2024 12:04 PM CDT Temperature 36.6 ??C (97.9 ??F) 05/13/2024 12:04 PM C DT Respiratory Rate 16 05/13/2024 12:04 PM CDT Oxygen Saturation 96% 05/13/2024 12:04 PM CDT Inhaled Oxygen Concentration - - Weight 68.5 kg (151 lb) 05/13/2024 12:04 PM CDT Height 157.5 cm (5' 2 ) 05/13/2024 12:04 PM CDT Body Mass Index 27.62 05/13/2024 12:04 PM CDT documented in this encounter Patient Instructions * Patient Instructions* Mara Almendarez NP - 05/13/2024 12:00 PM CDT If you have no improvement or worsening of your symptoms, please follow up with your Primary Care Provider, [facility] and or Emergency Room. I strive to provide you with EXCELLENT service. You may receive a survey after your visit today. If you cannot rate your experience as EXCELLENT, please let us know how we can improve and better meet your needs. Thank you for choosing [facility]! It was my pleasure to see you today, I hope you feel better soon! Mara Almendarez ENGRAVER SIGNATURE * Attachments The following attachments cannot be sent through Care Everywhere. * Knee Pain (AfterCare(R) Instructions(ER/ED)) (Uruguayan) * Head Injury (AfterCare(R) Instructions(ER/ED)) (Uruguayan) documented in this encounter Progress Notes * Mara Almendarez, SUPERVISOR HEADING - 05/13/2024 12:00 PM CDT Images from the original note were not included. Subjective/Objective Patient ID: Lisa Allen is a 79 y.o. female. Chief Complaint Knee Pain (Patient here for c/o right knee and back pain after fall on Friday at assisted living facility. Patient also states she hurt the back of her head, c/o excessive sleepiness and has not feltlike herself the last two days. ) 79-year-old 79-year-old female patient presents today with daughter with complaints of fall occurring on Friday. Patient reports that there was something sticky on the bottom of her shoe. Reports that she attempted to stand up and ambulate when she lost her balance falling on the right side of her body. Reports that she did hit her head however did not lose consciousness. Denies any blurred or double vision. Denies any neck pain. Reports that she has been slightly more sleepy however does seem to be feeling better today. Patient reports the majority of her pain is to her right knee. Patient also reports some mild low back pain. Patient is ambulatory today with a walker which is what she uses at her baseline. Daughter reports that patient was to be seeing PT at the assisted living facilitywhere she lives due to recent frequent falls. Patient's daughter reports that she is at her baseline other than the complaint of feeling slightly sleepy. Lower Extremity Issue The incident occurred 3 to 5 days ago. The incident occurred at home. The injury mechanism was a fall. The pain is present in the right knee. The quality of the pain is described as aching. The pain is at a severity of 8/10. The pain has been Intermittent since onset. Review of Systems All other systems reviewed and are negative. Physical Exam Vitals reviewed. Constitutional: Appearance: Normal appearance. She is normal weight. HENT: Head: Normocephalic. Right Ear: Tympanic membrane, ear canal and external ear normal. Left Ear: Tympanic membrane, ear canal and external ear normal. Nose: Nose normal. Mouth/Throat: Mouth: Mucous membranes are moist. Eyes: Extraocular Movements: Extraocular movements intact. Right eye: No nystagmus. Left eye: No nystagmus. Comments: Patient's right pupil was pinpoint, chronic per patient and daughter Patient's left pupil is reactive an approximately 3-4 mm in size Cardiovascular: Rate and Rhythm: Normal rate. Pulses: Normal pulses. Pulmonary: Effort: Pulmonary effort is normal. Musculoskeletal: General: Swelling, tenderness and signs of injury present. Cervical back: Normal range of motion. Comments: Patient has minimal lower lumbar tenderness upon exam, most of her tenderness is paraspinal which is likely more muscular in nature. There is no mass or bruising noted upon physical exam. Patient is able to perform straight leg raise. Patient has no tenderness in the hip. She is able to rise from a sitting position without difficulty. Patient is right knee has mild fluid to the lateral portion. Joint is stable upon physical exam Skin: General: Skin is warm and dry. Capillary Refill: Capillary refill takes less than 2 seconds. Neurological: General: No focal deficit present. Mental Status: She is alert and oriented to person, place, and time. Mental status is at baseline. Psychiatric: Mood and Affect: Mood normal. Behavior: Behavior normal. Thought Content: Thought content normal. Judgment: Judgment normal. Vitals: 05/13/24 1204 BP: 134/78 Pulse: 95 Resp: 16 Temp: 36.6 ??C (97.9 ??F) SpO2: 96% Weight: 68.5 kg (151 lb) Height: 157.5 cm (5' 2 ) No results found. 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 Prediabetes 06/19/2022 Seizure (HCC) Syncope Ulcerative colitis (HCC) 2019 Current Outpatient Medications: amLODIPine (NORVASC) 5 mg tablet, Take 1 tablet (5 mg total) by mouth daily, Disp: 90 tablet, Rfl: 1 aspirin 81 mg enteric coated tablet, Take 1 tablet (81 mg total) by mouth daily, Disp: 90 tablet, Rfl: 3 busPIRone (BUSPAR) 5 mg tablet, Take 1 tablet (5 mg total) by mouth 2 (two) times a day, Disp: 60 tablet, Rfl: 2 calcium citrate-vitamin D3 (Citracal + D [...] the evening, Disp: 120 capsule, Rfl: 5 metFORMIN XR (GLUCOPHAGE XR) 750 mg 24 hr tablet, Take 1 tablet (750 mg total) by mouth daily with breakfast, Disp: 30 tablet, Rfl: 11 metoprolol tartrate (LOPRESSOR) 50 mg immediate [...] total) by mouth nightly, Disp: , Rfl: rivastigmine (EXELON) 4.6 mg/24 hour, Place 4.6 mg on the skin daily, Disp: 30 patch, Rfl: 1 vedolizumab (ENTYVIO) 300 mg recon soln, Infuse 5 mL (300 mg total) into a venous catheter every 8 (eight) weeks Infused at: [facility] ([facility] order in Epic under 'Procedures' tab)., Disp: 1 each, Rfl: 5 acetaminophen (acetaminophen Extra Strength) 500 mg tablet, Take 1 tablet (500 mg total) by mouth every 6 (six) hours as needed (Patient not taking: Reported on 04/01/2024), Disp: , Rfl: lamoTRIgine (LaMICtal) 25 mg tablet, , Disp: , Rfl: Allergies Allergen Reactions Penicillins Hives She thinks as an adult but is unsure Social History Tobacco Use Smoking status: Never Passive exposure: Never Smokeless tobacco: Never Substance and Sexual Activity Drug use: Never Sexual activity: Never Alcohol Use: Not At Risk (06/26/2023) AUDIT-C Frequency of Alcohol Consumption: Never Average Number of Drinks: Patient does not drink Frequency of Binge Drinking: Never Past Surgical History: Procedure Laterality Date COLONOSCOPY FEMUR FRACTURE SURGERY Left 2011 PARTIAL HIP ARTHROPLASTY Left 2015 RETINAL DETACHMENT SURGERY Right Procedures Assessment/Plan No results found for this or any previous visit (from the past 4 hour(s)). Diagnoses and all orders for this visit: Fall, initial encounter (Primary) - XR Knee Right 4 or More Views; Future Acute pain of right knee Plan: Patient is A&O x3. Patient is able to ambulate with a walker. Has what appears to be a effusion versus contusion to the right lateral knee. Patient has joint is stable upon exam. Patient was placed in a knee brace. Patient should continue to use the knee immobilizer. Patient's daughter would like x-ray sent to patient's PCP to see if he would like her to continue to do physical therapy at the assisted living facility. Patient and her daughter were also given information regarding headinjury. If patient has declining condition, recommend ER evaluation. Patient's daughter both reportthat her symptoms are improving in nature. Patient's right pupil is pinpoint however this is chronic according to patient and family due to a history of retinal detachment. 1652- IMPRESSION: Moderate right knee joint effusion. No fracture. Severe patellofemoral osteoarthritis. Called patient's daughter with xray report. Reviewed head injury guidelines along with icing, elevating and wearing the brace. If patient has continued symptoms, recommend re-evaluation. Also for thepatient's x-ray 2 PCP per patient's daughter's request. Disposition Treatment plan including expectations, follow up, and return precautions discussed with patient/parent, verbalizes understanding. Medication dosage, use, and potential adverse reactions discussed with patient/parent. Advised to follow up with PCP if symptoms do not resolve as expected or sooner if condition worsens. Signs/symptoms warranting ER evaluation reviewed. Patient and/or guardian was given an opportunity to ask questions, questions answered. Mara Almendarez NP Cosigned by Aron Briscoe MD at 05/27/2024 8:12 AM CDT documented in this encounter Plan of Treatment Not on file documented as of this encounter Results * XR Knee Right [...] D: ??05/13/2024 4:47 PM T: Report ID: [id number] Reading Location: ??[id number] Procedure Note Dylan Zuniga MD - 05/13/2024 [...] signed by Dylan CARROLL T: Report ID: [id number] Reading Location: [id number] Mara Almendarez SUPERVISOR HEADING IMG XR PROCEDURES Final Re sult documented in this encounter Visit Diagnoses Diagnosis Fall, initial encounter- Primary Acute pain of right knee Fall, initial encounter documented in this encounter Discontinued Medications Medication Sig Discontinue Reason Start Date End Da te lamoTRIgine (LaMICtal) 150 mg tablet Take 1 tablet (150 mg total) by mouth 2 (two) times a day 04/01/2024 05/13/2024 documented as of this encounter Historical Medications * This list may reflect changes made after this encounter. Medication Sig Dispense Quantity Refills Last Filled Start D ate End Date lamoTRIgine (LaMICtal) 200 mg tablet 04/27/2024 lamoTRIgine (LaMICtal) 25 mg tablet 04/17/2024 05/19/2024 added in this encounter Care Teams Maintenance Operator Relationship Specialty Start Date End Date Servando Torre MD [address] [facility] [address] [place] [address] PCP - General Family Medicine 06/19/22 Mariela Denton MD [address] [place] [address] Referring Physician Gastroenterology 06/19/22 Lexis Barroso OD [address] [place] [address] Housekeeping Cleaner 09/19/22 documented as of this encounter
--- OUTSIDE RECORDS SUMMARY | 2024-07-12 19:42 | XMS_ITS | Encounter Summary ---
Author Organization [facility] Address [address] [place] [address] Phone Care Team Providers Care Flat Surfacer Jewel Name Role Phone Servando Torre MD Primary Care Provider [phone] Mariela Denton MD Unavailable + [phone] Lexis Barroso OD Unavailable [phone]- [phone] Reason for Visit * Reason Onset Date Comments Med Management (Renewal Entyvio Auth/Order) 03/2024 No Auth Required 04/05/2024 Encounter Details Date Type Department Care Team (Late st Contact Info) Description 04/05/2024 Telephone [facility] Gastroenterology [address] 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 -------Fax Transmission Report------- To: Recipient at [phone] Subject: AC - Authorization [Secure] Result: The transmission was successful. Explanation: All Pages Ok Pages Sent: 3 Connect Time: 1 minutes, 39 seconds Transmit Time: 04/06/2024 12:03 Transfer Rate: 9600 Status Code: 0000 Retry Count: 0 Job Id: [id number] Unique Id: [id number] Fax Line: 2 Fax Grocery Checker: [id number] * Telephone Encounter - Eron Chacha Carolina - 04/06/2024 9:59 AM CDT SPECIALTY DRUG INFUSION AUTHORIZATION Patient: Lisa Allen : 1945 Ordering Physician: ANJANA MARIE #: [id number] DRUG NAME: ENTYVIO DOSE/FREQUENCY: 300MG IVP Q 8 WEEKS CPT/ADMIN CODE(S): J3380, 81918, [address]5930 DX CODE(S): K51.919 LOCATION: [address] [place] [address] PHONE #[phone], FAX #[phone] TAX ID #[id number], NPI #[id number] Primary Insurance: MCR ID # [id number] Group # Ins Phone # RTDidi, 04/06/2024 AUTH #: NO AUTH REQ Effective Date: 04/06/2024 Expiration date: 07/27/2024 How many visits: 99 ( PRESCRIBED) Ins Rep Name: Auth Phone #: Date Called: 04/06/2024 Call ref #: PCP Referral required? NO Referral number/visits/valid dates: N/A Is this drug a covered benefit under the medical plan? YES (Rep's name @ call ref#) Does the pt have 'BUY AND BILL' benefit (can this drug be supplied in the office or hospital setting, and the medical plan billed?) YES Does this policy have a specialty pharmacy carve out? :NO Specialty pharmacy name if applicable: N/A PRE-DETERMINATION REQUIRED/RECOMMENDED? NO PRE-D FAX #: DATE SUBMITTED: PRE-D OUTCOME: CAN WE SUBMIT FOR A VOLUNTARY PREDETERMINATION (if authorization is not needed) N/A Secondary Insurance: [place] (PRESCRIPTION ONLY, NO MEDICAL BENEFITS) ID # Group # Ins Phone # AUTH #: NOT COVERED Effective Date: Expiration Date: How many visits: Ins Rep Name: MICHAEL Denson Phone #: [phone] Date Called: 04/06/2024 Call ref #: [id number] PCP Referral required? Referral number/visits/valid dates: Is this drug a covered benefit under the medical plan? (Rep's name @ /call ref#) Does the pt have 'buy and bill' benefit (can this drug be supplied in the office or hospital setting, and the medical plan billed?) Does this policy have a specialty pharmacy carve out? Specialty pharmacy name/phone if applicable: PRE-DETERMINATION REQUIRED/RECOMMENDED? PRE-D FAX #: DATE SUBMITTED: PRE-D OUTCOME: CAN WE SUBMIT FOR A VOLUNTARY PREDETERMINATION (if authorization is not needed) * Telephone Encounter - Janice Baez LPN - 04/05/2024 10:41 AM CDT Images from the original note were not included. Below fax received from local infusion team. New [facility] Entyvio order placed, renewal order has been faxed to infusion team at . I did inform their team that I would have our infusion pre-cert team verify auth and that this would be faxed to their team once obtained. Encounter/order routed to infusion pre-cert team. Reminder set for follow up. -------Fax Transmission Report------- To: Recipient at [phone] Subject: AC - Renewal Entyvio Order [Secure] Result: The transmission was successful. Explanation: All Pages Ok Pages Sent: 3 Connect Time: 1 minutes, 34 seconds Transmit Time: 04/05/2024 10:50 Transfer Rate: 9600 Status Code: 0000 Retry Count: 0 Job Id: [id number] Unique Id: [id number] Fax Line: 3 Fax Grocery Checker: [id number] documented in this encounter Plan of Treatment Not on file documented as of this encounter Visit Diagnoses Diagnosis Chronic ulcerative colitis, unspecified complication (HCC)- Primary documented in this encounter Orders Procedures Count Last Ordered Date First Orde red Date ONCBCN OUTPATIENT FACILITY ORDERS 1 024 documented in this encounter Care Teams Flat Surfacer Jewel Relationship Specialty Start Date End Date Servando Torre MD [address] [address] PCP - General Family Medicine 06/19/22 Mariela Denton MD [address] [facility] [address] [place] [address] Referring Physician Gastroenterology 06/19/22 Lexis Barroso OD [address] [place] [address] Sap Ariba Consultant 09/19/22 documented as of this encounter
--- OUTSIDE RECORDS SUMMARY | 2024-07-12 19:42 | XMS_ITS | Encounter Summary ---
Author Organization [facility] Address [address] [place] [address] Phone Care Team Providers Care Car Sealer Name Role Phone Servando Torre MD Primary Care Provider [phone] Mariela Denton MD Unavailable [phone] Lexis Barroso OD Unavailable [phone] Encounter Details Date Type Department Care Team (Late st Contact Info) Description 05/19/2024 4:30 PM CDT Office Visit [facility] 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 Gender Identity Female 04/05/2022 6:17 PM CDT Sexual Orientation Straight 04/05/2022 6: 17 PM CDT documented as of this encounter Last Filed Vital Signs Vital Sign Reading Time Taken Comments Blood Pressure 169/72 05/19/2024 4:05 PM CDT Pulse 65 05/19/2024 4:05 PM CDT Temperature - - Respiratory Rate - - Oxygen Saturation - - Inhaled Oxygen Concentration - - Weight 67.6 kg (149 lb) 05/19/2024 4:05 PM CDT Height 157.5 cm (5' 2 ) 05/19/2024 4:05 PM CDT Body Mass Index 27.25 05/19/2024 4:05 PM CDT documented in this encounter Patient Instructions * Patient Instructions* Grace Nicolas MD - 05/19/2024 4:30 PM CDT [facility] - VISIT SUMMARY & PATIENT INSTRUCTIONS For Ms. Radha Allen (: 1945) [facility], Department of Neurology Clinic (Nurse Eileen Mary) Who came with you to clinic today: your daughter Aby, grand daughter Gerald Providers today were: Dr. Grace Nicolas (attending physician) FEEDBACK/DIAGNOSTIC ISSUES REGARDING BRAIN HEALTH Thank you for coming to the [facility] today and for allowing us to participate in your medical care. Based on information and testing that we reviewed today, including the results of your in-office testing (including physical examination), we think that very mild dementia due to vascular disease is the most likely cause of the changes in memory and thinking that you and your family have noticed. Other possible causes of the memory changes could be contributions from seizures . Memory and thinking test scores today: Your test scores today were: MMSE (Mini Mental Status Exam): Mini-Mental Total Score ((out of 30): 28 A perfect score on this test is 30. A score of of between 27-30 is considered normal. A score of 24-26 is considered mildly impaired. A score of 20-23 is impaired. Scores below 20 show moderate impairment and 10 or below showssevere impairment. Short Blessed Test: Short Blessed Total Score: 0 A perfect score on the Short Blessed Test is a 0 (higher score means poorer performance). A score of 4 or below is mild impairment. Scores of 5 or more indicate impairment. The maximum (worst) score is 28. RECOMMENDATIONS FOR FURTHER TESTING We have requested that the following studies be performed: Laboratory (Blood tests): We reviewed your lab results today and no additional lab tests are needed. Imaging Studies: no additional neuroimaging is required at this time Other testing: no additional testing is indicated at this time Referrals to other providers: I will request that an outpatient clinic visit be scheduled with the following service(s): Not applicable. No additional referrals are recommended at this time. Discuss with your primary care doctor: I have recommended that you follow-up with your primary carepractitioner to discuss control of vascular risk factors (e.g., high blood pressure, high cholesterol, high blood glucose) MEDICATIONS DISCUSSED TODAY Changes to your medications were recommended today. We will stop the exelon patch given the increased frequencies for seizures. ADDITIONAL RECOMMENDATIONS/RESOURCES Nutrition: We recommend that you eat a balanced diet, including fruits and vegetables daily and regular servings of fish. Activity: We recommend that you engage in daily physical activity such as walking or stretching. Ifyou have not already done so, you should consider developing a regular exercise regimen. We recommend you do things that stimulate your mind, such as puzzles, books, working on hobbies, visiting with friends and relatives or engaging in other social and community activities. Sleep: Sleep can have a big effect on your memory and thinking. Make sure you get a good night's sleep every night. If you have trouble sleeping, make sure you follow these rules for basic sleep hygiene: -Get up at the same time every morning, regardless of how little or how poorly you sleep. -No napping during the day time. If naps are really necessary, nap for less than an hour and only nap before 3 PM. -Have a regular calm down time before going to bed. Do not work right up until bedtime. -Have a regular exercise schedule, as exercise helps consolidate sleep. -No caffeine for 6 hours before bedtime. -No watching T.V. or using the computer in your bedroom or at bedtime. -If you are not able to fall asleep after 20 minutes, get out of bed and do a relaxing activity fora few minutes. Driving: You have already made the decision to stop driving. We support this decision. You should not drive. Safety: No safety concerns were discussed today. Legal: No legal concerns were discussed today. You may wish to consult an travel accommodations rater regarding these matters. Level of Care Recommendation: You should consider living where assistance with meals, medication, and transportation is available, and where there are opportunities for social interactions and activities, such as in an assisted living type setting. FOLLOW-UP You should return to see either Ms. Chelsie Francisco NP, Ms. Jose Alfredo Kumar NP, or CHAMP Ashton in [address] Nicolas in about a year. . You can [phone] if you have questions about scheduling. If we ordered blood tests today, please stop by the [employer] patient testing area on the third floorto have your blood drawn. This is across from the [employer], in the same direction as the [employer] [facility] parking garage. You should continue to see your primary care doctor at regular intervals. RESOURCES FOR ADDITIONAL INFORMATION AND SUPPORT We will refer you to our Alzheimer Association Oracle Forms Developer. The social media senior associate will call you in the next 7-10 days. Alzheimer's Association of [place] Chapter: ; (toll free); http://www.alz.org [employer] [phone] http://memorycarehs [facility] Agency on Aging (serving [facility]) http://[facility].[place].org/government/hslaaa.html [facility] Agency on Aging (serving [place], [facility] and [facility] http://www.shriners hospitals for childrenaaa.org [facility]- provides counseling and help with the aging and ailments of our loved ones. They may be able to provide counseling in your home as well as in their office and services may be covered by Medicare. [address], [place] [address] or [email or web address]. Website: http://[employer]/services/vryumu-hvir-gjzwhoud/ [employer], Cognitive Stimulation Through Activity at the [place] [employer]. [address] [place] [address] http://www.Photocollect/project/arxw-eu-gmybiq/ Lewy Body Dementia Association: (toll free); http://www.LBDA.org Association for Frontotemporal Dementias: (toll free); http://www.ftd-picks.org Geriatric District Wildlife Manager: [employer], Ms. Varsha Mcgarry, https://www.decisionpointconsulting.org/ Pathways for aging http://FuelMiner/ Yessy Anthony with [employer] Elder [employer], Certified Plodding Machine Operator, [address], [address] [address]. , fax: [phone]. [email or web address]. documented in this encounter Ordered Prescriptions Prescription Sig Dispense Quantity Refills Last Filled Start Date End Date busPIRone (BUSPAR) 5 mg tabletIndications: Generalized Anxiety Disorder Take 1 tablet (5 mg total) by mouth 2 (two) times a day 60 tablet 2 05/19/2024 05/28/2024 documented in this encounter Progress Notes * Grace Nicolas MD - 05/19/2024 4:30 PM CDT [facility] ESTABLISHED PATIENT FOLLOW-UP VISIT Grace Nicolas MD, MSc [employer] Department of Neurology Patient Name: RADHA ALLEN Medical Record Number (MRN): [id number] Date of (): 1945 Encounter Date: 05/19/2024 Primary Care Practitioner: Servando Ballard MD CHIEF COMPLAINT / Review of Past Visits Ms. Allen returns today for follow-up concerning her diagnosis of (F01.50) Vascular dementia withoutbehavioral disturbance (HCC) (primary encounter diagnosis) . She was last assessed in 10/2023 by PLACEMENT DIRECTOR Pamela Langston, at which time presented for follow up of 2 year history of memory decline concerning for very mild dementia due to VD (CDR 0.5, SOB 3.5). We had started on rivastigmine patch. In the meantime, she had several seizures, and her ASM has been increased to 200mg BID. Brain MRI (06/2023): generalized atrophy, moderate to severe SVDs. HISTORY OF PRESENT ILLNESS Ms. Allen is a 79 y.o. left handed lady with HL, HTN, DM, UC, and focal seizures who [facility] accompanied by her daughter and granddaughter who serves as the Collateral Source (CS). Ms. Allen lives alone , in an assisted living facility. She moved into the [facility], to the assisted living. Since our last assessment, Ms. Allen's memory has precipitously declined. She gets anxious with appointments and does not sleep well. She has had more seizures since the past year. Currently she has difficulty managing medications. She requires assistance managing appointments. She is reliable in recalling details of recent events. She will repeat questions, stories and statements. She usually knows the day of the week, month and year. She has difficulty with time relationships. She is able to navigate in familiar areas only. Judgment and problem solving abilities are still good, but not as good as before. She has difficulty with paying bills, balancing a checkbook, and understanding more complex issue. She is appropriatein social situations. She is as active as ever in the community. She is no longer driving, due to issues with memory and thinking. At home, she is able to manage simple chores (e.g., washing the dishes, making her bed, and light cleaning). She is able to operate household appliances including the cell phone repair technician, laundry machines, and blanket maker. She has difficulty using technology, including the television remote, cell phone, and computer. She is fully capable of self care. ADDITIONAL SAFETY/CAREGIVING CONCERNS: Is She currently driving? No Who supervises medications? Spouse or other caregiver supervises. Are there firearms in the home? No Have there been any recent (in the past 6 months) falls? Yes She requires the assistance of a caregiver, and is primarily cared for by facility . Her caregiver is willing to continue to serve as caregiver and has ample support. Depression was assessed by administering the Geriatric Depression Scale; this was reviewed in psychometric package. Also, the CS reports that mood is good. On direct questioning, Ms. Allen states that memory is not so hot sometimes. She states that mood isgood. Sleep is pretty good. I do get interrupted. 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 Prediabetes 06/19/2022 Seizure (HCC) Syncope Ulcerative colitis (HCC) 2019 Past Surgical History: Procedure Laterality Date COLONOSCOPY FEMUR FRACTURE SURGERY Left 2010 PARTIAL HIP ARTHROPLASTY Left 2015 RETINAL DETACHMENT SURGERY Right ALLERGIES Allergies Allergen Reactions Penicillins Hives She thinks as an adult but is unsure MEDICATIONS Current Outpatient Medications: acetaminophen (acetaminophen Extra Strength) [...] catheter every 8 (eight) weeks Infused at: [facility] ([facility] order in Epic under 'Procedures' tab)., Disp: 1 each, Rfl: 5 busPIRone (BUSPAR) 5 mg tablet, Take 1 tablet (5 mg total) by mouth 2 (two) times a day, Disp: 60 tablet, Rfl: 2 metFORMIN XR (GLUCOPHAGE XR) 750 mg 24 hr tablet, Take 1 tablet (750 mg total) by mouth daily with breakfast, Disp: 30 tablet, Rfl: 11 FAMILY & SOCIAL HISTORY Family History Problem Relation Age of Onset [...] not drink Frequency of Binge Drinking: Never REVIEW OF SYSTEMS Pertinent positives and negatives were recorded in HPI. All other systems negative. PHYSICAL EXAMINATION BP 169/72 (BP Location: Left arm, Patient Position: Sitting) Pulse 65 Ht 157.5 cm (5' 2 ) Wt 67.6 kg (149 lb) BMI 27.25 kg/m?? The patient appeared of average build and of stated age. She was dressed appropriately, and behavednormally throughout the interview, with euthymic affect and good conversational skills. No sensory intrusions / misperceptions were noted (i.e., no delusions and/or hallucinations). Neurological exam: Visual minor were full with no extinction on double simultaneous stimulation. Pupils were equal, round and reactive to light without relative afferent pupillary defect. Extraocular movements were full with normal smooth pursuit and saccadic eye movements. Facial sensation was intact in all three divisions of the trigeminal nerve. Facial movement was symmetric. Hearing was intact. Palate elevation was symmetric. Shoulder shrug and head turning were symmetric. Tongue protrusion was midline. Motor exam revealed normal bulk, tone and strength throughout. Fine finger movements were symmetric. There was no pronator drift. Omhmdt-lmzu-gksihp testing were normal. No tremor or bradykinesia was detected. Reflexes were symmetric at the biceps, triceps, brachioradialis and knees. Sensation was intact to light-touch; no extinction was noted with double- simultaneous stimulation. Gait was normal . The patient was fluent throughout the interview and examination. Confrontational naming was intact to low-frequency words. Repetition was preserved.. The details of a recent event were recalled adequately. She recalled 5/5 items on the Alen Brown memory phrase and 2/3 items on delayed recall testing on the MMSE. The patient correctly calculated the number of quarters in $6.75. The patient correctly performed serial subtractions (3's). She was able to draw a clock, and indicate the correct time.She was able to copy intersecting pentagons. She demonstrated good insight concerning the purpose for today's visit. RECENT EVENT PER CS: We didn't do much after birthday. 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 - [facility], Friday. She was part of the group . - juan song. - some for . 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 Last Friday, I got back. - [place] - // most of them were. - I can't remember singing vet's day. COGNITIVE TESTING REPORT Please see neurobehavioral exam results (below) and summary sheet in the chart for test scores. On formal neurobehavioral testing, which took from 1611 h to 1640 h, scores were in the mildly impaired range on tests of semantic memory (Worley Naming, verbal fluency). Scores were in the normal range on tests of episodic memory (word list memory task, word list recall, logical memory). Scores were in the mildly impaired on tests of speeded psychomotor performance (trailmaking A and B, digit symbol). On more global tests, MMSE was 28 and Short Blessed was 0 . These findings are consistent with mild impairment, and could be seen in, but are not specific for subcortical disease . [facility] Neurobehavioral Status Test Results 04/09/2023 7:00 AM 05/19/2024 7:00 AM [facility] Neurobehavioral Status Exam Results Repository ICF signed? No No Verbal Fluency Total Score 10 8 Worley Naming (15 item) Total Score 15 15 [...] -- Digit Symbol Errors 0 Clinical Dementia Rating 04/09/2023 7:00 AM 05/19/2024 7:00 AM [facility] CDR/DIAGNOSIS NEW Repository ICF signed? No No [...] cognitive disorder Active Seizure disorder Active Active ADDITIONAL SUMMARY OF RELEVANT MEDICAL RECORDS/ TESTING Lab Results Component Value Date VITB12 >2,000 (H) 05/30/2022 Lab Results Component Value Date TSH 0.72 09/30/2023 Lab Results Component Value Date WBC 8.4 03/30/2024 HGB 14.9 03/30/2024 HCT 47.6 (H) 03/30/2024 MCV 92.6 03/30/2024 LABPLAT 308 03/30/2024 Lab Results Component Value Date GLUCOSE 157 03/30/2024 CALCIUM 9.8 03/30/2024 SODIUM 143 03/30/2024 POTASSIUM 4.0 03/30/2024 CO2 30 03/30/2024 CHLORIDE 104 03/30/2024 BUNSER 13 03/30/2024 CREATININE 0.94 03/30/2024 Lab Results Component Value Date ALT 15 03/30/2024 AST 24 03/30/2024 ALKPHOS 105 03/30/2024 BILITOT 0.3 03/30/2024 DIAGNOSIS AND ASSESSMENT Ms. Allen is a 79 y.o. lady with a family history of dementia, who presents with a 2 year history ofslowly progressive cognitive decline. The pattern of decline, findings on neurological examination,psychometric test results and my neurobehavioral examination confirm very mild dementia. The most likely etiologic cause is vascular disease. Other diagnostic considerations include contributions from seizure disorder . Her seizures have increased since this 02/2024. We have added on the rivastigmine in 10/2023 visit, and her sleep had worsened, which may have lowered the seizure threshold. At the time of this visit, it is my opinion that she may not be reliable in making independent medical decisions, although this is currently unclear and may require additional testing. PLAN 1. Vascular dementia without behavioral disturbance (HCC) 1. Diagnostic evaluation: A. Laboratory studies are reviewed and are complete. No further testing is indicated at this time. B. Neuroimaging is not required at this time. 2. Treatment: - will consider mirtazapine, will check with Dr. Anthony. If started on the mirtazapine at stable dose, will slowly wean buspirone. - stop exelon/rivastigmine given the increased seizures. 3. Activity: I recommended that Ms. Allen remain physically active and socially engaged. Ms. Allen and the CS were referred to the Alzheimer???s Association for additional educational resources. 4. Safety: No safety concerns were identified today. Ms. Allen does not drive. I support this decision. 5. Follow-up: I will see her again in one year. She will follow-up with one of our clinic Nurse Practitioners, Ms. Chelsie Francisco or Ms. Jose Alfredo Kumar or our Physician Salesperson [employer] Accessories Ms. Marianne Mccullough, in 6 months. --- I spent 15 minutes interpreting the results of standardized neuropsychological testing, integratingthese results into clinical decision making and treatment plan, providing interactive feedback to the patient and family member(s)/caregiver(s) and report, and documenting this in the patient's chart. In addition to the interpretation time listed above (and exclusive of that time), I spent 40 minutes on the day of the encounter on activities related to the visit including preparing to see the patient by reviewing labs, tests and medical records, time spent [id number] with the patient and family during the visit, performing counselling and education, placing orders and documenting the visit in the patient's EHR. Grace Nicolas MD, MSc Production Planning Manager Department of Neurology, [facility] Detailed plan and patient/caregiver education and referrals are in AVS copied below: Patient Instructions [facility] - VISIT SUMMARY & PATIENT INSTRUCTIONS For Ms. Radha Allen (: 1945) [facility], Department of Neurology Clinic (Nurse Eileen Hernandez) Who came with you to clinic today: your daughter Aby, grand daughter Gerald Providers today were: Dr. Grace Nicolas (attending physician) FEEDBACK/DIAGNOSTIC ISSUES REGARDING BRAIN HEALTH Thank you for coming to the [facility] today and for allowing us to participate in your medical care. Based on information and testing that we reviewed today, including the results of your in-office testing (including physical examination), we think that very mild dementia due to vascular disease is the most likely cause of the changes in memory and thinking that you and your family have noticed. Other possible causes of the memory changes could be contributions from seizures . Memory and thinking test scores today: Your test scores today were: MMSE (Mini Mental Status Exam): Mini-Mental Total Score ((out of 30): 28 A perfect score on this test is 30. A score of of between 27-30 is considered normal. A score of 24-26 is considered mildly impaired. A score of 20-23 is impaired. Scores below 20 show moderate impairment and 10 or below showssevere impairment. Short Blessed Test: Short Blessed Total Score: 0 A perfect score on the Short Blessed Test is a 0 (higher score means poorer performance). A score of 4 or below is mild impairment. Scores of 5 or more indicate impairment. The maximum (worst) score is 28. RECOMMENDATIONS FOR FURTHER TESTING We have requested that the following studies be performed: Laboratory (Blood tests): We reviewed your lab results today and no additional lab tests are needed. Imaging Studies: no additional neuroimaging is required at this time Other testing: no additional testing is indicated at this time Referrals to other providers: I will request that an outpatient clinic visit be scheduled with the following service(s): Not applicable. No additional referrals are recommended at this time. Discuss with your primary care doctor: I have recommended that you follow-up with your primary carepractitioner to discuss control of vascular risk factors (e.g., high blood pressure, high cholesterol, high blood glucose) MEDICATIONS DISCUSSED TODAY Changes to your medications were recommended today. We will stop the exelon patch given the increased frequencies for seizures. ADDITIONAL RECOMMENDATIONS/RESOURCES Nutrition: We recommend that you eat a balanced diet, including fruits and vegetables daily and regular servings of fish. Activity: We recommend that you engage in daily physical activity such as walking or stretching. Ifyou have not already done so, you should consider developing a regular exercise regimen. We recommend you do things that stimulate your mind, such as puzzles, books, working on hobbies, visiting with friends and relatives or engaging in other social and community activities. Sleep: Sleep can have a big effect on your memory and thinking. Make sure you get a good night's sleep every night. If you have trouble sleeping, make sure you follow these rules for basic sleep hygiene: -Get up at the same time every morning, regardless of how little or how poorly you sleep. -No napping during the day time. If naps are really necessary, nap for less than an hour and only nap before 3 PM. -Have a regular calm down time before going to bed. Do not work right up until bedtime. -Have a regular exercise schedule, as exercise helps consolidate sleep. -No caffeine for 6 hours before bedtime. -No watching T.V. or using the computer in your bedroom or at bedtime. -If you are not able to fall asleep after 20 minutes, get out of bed and do a relaxing activity fora few minutes. Driving: You have already made the decision to stop driving. We support this decision. You should not drive. Safety: No safety concerns were discussed today. Legal: No legal concerns were discussed today. You may wish to consult an travel accommodations rater regarding these matters. Level of Care Recommendation: You should consider living where assistance with meals, medication, and transportation is available, and where there are opportunities for social interactions and activities, such as in an assisted living type setting. FOLLOW-UP You should return to see either Ms. Chelsie Francisco NP, Ms. Jose Alfredo Kumar NP, or CHAMP Ashton in [address] Nicolas in about a year. . You can [phone] if you have questions about scheduling. If we ordered blood tests today, please stop by the [place] patient testing area on the third floorto have your blood drawn. This is across from the [employer], in the same direction as the bridge tothe parking garage. You should continue to see your primary care doctor at regular intervals. RESOURCES FOR ADDITIONAL INFORMATION AND SUPPORT We will refer you to our Alzheimer Association Oracle Forms Developer. The social media senior associate will call you in the next 7-10 days. Alzheimer's Association [facility] Chapter: ; (toll free); http://www.alz.org [employer] [phone] http://memorycare[facility]osh[facility] Medical Center Agency on Aging (serving [facility]) http://[facility].m[place].[facility]/government/hslaaa.html [facility] Agency on Aging (serving [facility] and [facility] http://www.[facility].org [facility]- provides counseling and help with the aging and ailments of our loved ones. They may be able to provide counseling in your home as well as in their office and services may be covered by Medicare. [address], [place] [id number] or [email or web address]. Website: http://[employer]/services/cwqocs-kkxj-svdgpfui/ [employer], Cognitive Stimulation Through Activity at the [employer]. [address] [facility] [place] [address] http://www.GigsTime.Decisionlink/project/rdvh-qf-iiyodt/ Lewy Body Dementia Association: (toll free); http://www.LBDA.org Association for Frontotemporal Dementias: (toll free); http://www.ftd-picks.org Geriatric District Wildlife Manager: [employer], Ms. Varsha Mcgarry, https://www.decisionpointconsulting.org/ Pathways for aging http://FuelMiner/ Yessy Anthony with [employer], Certified Plodding Machine Operator, [address], [place] [address]. , fax: [phone]. [email or web address]. documented in this encounter Plan of Treatment Not on file documented as of this encounter Visit Diagnoses Diagnosis Vascular dementia without behavioral disturbance (HCC)- Primary documented in this encounter Discontinued Medications Medication Sig Discontinue Reason Start Date End Da te busPIRone (BUSPAR) 5 mg tabletIndications:Genera lized Anxiety Disorder Take 1 tablet (5 mg total) by mouth 2 (two) times a day Therapy completed 07/07/2023 05/19/2024 lamoTRIgine (LaMICtal) 25 mg tablet Therapy completed 04/17/2024 05/19/2024 rivastigmine (EXELON) 4.6 mg/[address] 4.6 mg on the skin daily Therapy completed 11/17/2023 05/19/2024 documented as of this encounter Care Teams Car Sealer Relationship Specialty Start Date End Date Servando Torre MD [address] [address] PCP - General Family Medicine 06/19/22 Mariela Denton MD [address] [place] [address] Referring Physician Gastroenterology 06/19/22 Lexis Barroso OD [address] [address] Manager Corporate Communications 09/19/22 documented as of this encounter
--- OUTSIDE RECORDS SUMMARY | 2024-07-12 19:42 | XMS_ITS | Encounter Summary ---
Author Organization [facility] Healthcare Address [address] [place] [address] Care Team Providers Care Photoradio Operator Name Role Phone Servando Torre MD Primary Care Provider [phone] Mariela Denton MD Unavailable [phone] Lexis Barroso OD Unavailable [phone]- [phone] Encounter Details Date Type Department Care Team (Latest Contact Info) Description 03/30/2024 9:26 AM CDT - 03/30/2024 11:59 PM CDT Hospital Encounter [facility] [address] [place] [address] Mixed diabetic hyperlipidemia associated with type 2 diabetes mellitus (HCC); Hypertension associated with diabetes (HCC) Discharge Disposition: Discharge to home or [...] on file 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 1 each 5 04/29/2023 acetaminophen (acetaminophen Extra Strength) 500 mg tablet Take 1 tablet (500 mg total) by mouth every 6 (six) hours as needed 09/30/2022 4 busPIRone (BUSPAR) 5 mg tabletIndications:Ge neralized Anxiety Disorder Take 1 tablet (5 mg total) by mouth 2 (two) times a day 60 tablet 2 07/07/2023 4 lacosamide (VIMPAT ORAL) Take by mouth 4 lamoTRIgine (LaMICtal) 100 mg tablet Take 1 tablet (100 mg total) by mouth 2 (two) times a day 180 tablet 1 01/12/2024 4 lamoTRIgine (LaMICtal) 150 mg tablet Take 1 tablet (150 mg total) by mouth 2 (two) times a day 180 tablet 1 04/01/2024 4 pravastatin (PRAVACHOL) 40 mg tabletIndications:Mi xed [...] Priority Date/Time Associated Diagnosis Comments EGFR Routine 03/30/2024 9:26 AM CDT Hypertension associated with diabetes (HCC) DIFFERENTIAL AUTO Routine 03/30/2024 9:2 6 AM CDT Hypertension associated with diabetes (HCC) CBC WITH AUTO DIFFERENTIAL Routine 03/30/2024 9:26 AM CDT Hypertension associated with diabetes (HCC) HEMOGLOBIN A1C Routine 03/30/2024 9:26 AM CDT Hypertension associated with diabetes (HCC) Mixed diabetic hyperlipidemia associated with type 2 diabetes mellitus (HCC) LIPID PANEL Routine 03/30/2024 9:26 AM CDT Mixed diabetic hyperlipidemia associated with type 2 diabetes mellitus (HCC) COMPREHENSIVE METABOLIC PANEL Routine 03/30/2024 9:26 AM CDT Hypertension associated with diabetes (HCC) documented in this encounter Results * eGFR (03/30/2024 9:26 AM CDT) eGFR 61 >=60 mL/min/1. 73 m2 Comment: Interpretive Data [...] of Race in Diagnosing Kidney Disease, JASN 202). The CKD-EPI equation should not be used for patients with unstable renal function and has not been validated in children and those over 70. Current interpretive data was last reviewed 2021. Blood 03/30/2024 9:26 AM CDT 03/30/2024 5:18 PM CDT us Servando Torre MD LAB BLOOD ORDERABLES Final Result [facility] [address] Department [place] [address] * Differential, auto (03/30/2024 9:26 AM CDT) Neutrophil abs 5.4 1.5 - 6.5 K/cumm Imm gran abs 0.1 0.0 - 0.1 K/cumm [facility] Lymphocyte abs 1.8 0.8 - 3.3 K/cumm [facility] Monocyte abs 0.8 0.2 - 0.8 K/cumm [facility] Eosinophil abs 0.3 0.0 - 0.5 K/cumm [facility] Basophil abs 0.1 0.0 - 0.1 K/cumm [facility] Neutrophil pct 64.8 % [facility] Comment: Interpretive Data Percent cell count reference ranges are not reported, since discordance with absolute values may lead to misinterpretation of CBC data. Current Interpretive Data was last revised on 2017. Imm gran pct 0.6 % [facility] Comment: Interpretive Data Percent cell count reference ranges are not reported, since discordance with absolute values may lead to misinterpretation of CBC data. Current Interpretive Data was last revised on 2017. Lymphocyte pct 21.4 % [facility] Comment: Interpretive Data Percent cell count reference ranges are not reported, since discordance with absolute values may lead to misinterpretation of CBC data. Current Interpretive Data was last revised on 2017. Monocyte pct 9.6 % [facility] Comment: Interpretive Data Percent cell count reference ranges are not reported, since discordance with absolute values may lead to misinterpretation of CBC data. Current Interpretive Data was last revised on 2017. Eosinophil pct 3.0 % [facility] Comment: Interpretive Data Percent cell count reference ranges are not reported, since discordance with absolute values may lead to misinterpretation of CBC data. Current Interpretive Data was last revised on 2017. Basophil pct 0.6 % [facility] Comment: Interpretive Data Percent cell count reference ranges are not reported, since discordance with absolute values may lead to misinterpretation of CBC data. Current Interpretive Data was last revised on 2017. Blood 03/30/2024 9:26 AM CDT 03/30/2024 4:55 PM CDT us Servando Torre MD LAB BLOOD ORDERABLES Final Result [facility] [address] Department [place] [address] * (ABNORMAL) CBC with auto differential (03/30/2024 9:26 AM CDT) WBC 8.4 3.8 - 9.9 K/cumm Hgb 14.9 11.9 - 15.5 g/dL [facility] Hct 47.6(H) 35.6 - 45.5 % [facility] Plt 308 150 - 400 K/cumm [facility] MPV 9.6 9.1 - 12.3 fL [facility] RBC 5.14 3.90 - 5.20 M/cumm [facility] MCV 92.6 81.3 - 96.4 fL [facility] MCH 29.0 27.1 - 33.3 pg [facility] MCHC 31.3(L) 32.3 - 35.7 g/dL [facility] RDW CV 12.8 11.1 - 14.9 % [facility] RDW SD 43.6 35.7 - 48.1 fL [facility] NRBC abs 0.00 0.00 - 0.01 K/cumm [facility] Blood 03/30/2024 9:26 AM CDT 03/30/2024 4:55 PM CDT us Servando Torre MD LAB BLOOD ORDERABLES Final Result [facility] [address] Department [place] [address] * Comprehensive metabolic panel (03/30/2024 9:26 AM CDT) Sodium 143 135 - 145 mmol/L Potassium, pl 4.0 3.3 - 4.9 mmol/L [facility] Chloride 104 97 - 110 mmol/L [facility] CO2 30 22 - 32 mmol/L [facility] Anion gap 9 2 - 15 mmol/L [facility] BUN 13 6 - 25 mg/dL [facility] Creatinine 0.94 0.60 - 1.10 mg/dL [facility] Glucose 157 70 - 199 mg/dL [facility] Comment: [...] interpretive data was last revised 2022. Calcium 9.8 8.5 - 10.3 mg/dL [facility] Bilirubin, total 0.3 0.1 - 1.2 mg/dL [facility] Protein, pl 7.3 6.5 - 8.5 g/dL [facility] Albumin 4.4 3.5 - 5.0 g/dL [facility] Alk phos 105 40 - 130 Units/L [facility] ALT 15 7 - 45 Units/L [facility] AST 24 10 - 45 Units/L [facility] Blood 03/30/2024 9:26 AM CDT 03/30/2024 4:55 PM CDT Servando Torre MD LAB BLOOD ORDERABLES Final Result [facility] [address] Department [place] [address] * (ABNORMAL) Hemoglobin A1c (03/30/2024 9:26 AM CDT) Pathologist [facility] Hgb A1C 6.8(H) 4.0 - 5.6 % Estimated Average Glucose 148 mg/dL [facility] Comment: The ADA recommends reporting an estimated Average Glucose (eAG) with all Hemoglobin A1c results using the equation derived from a study of 507 normal and diabetic adults. ??Minority populations were underrepresented and children were not included. ?? (Diabetes Care 31:9611-7654, 2008). ??The eAG is not equivalent to a fasting glucose. Blood 03/30/2024 9:26 AM CDT 03/30/2024 4:55 PM CDT Servando Torre MD LAB BLOOD ORDERABLES Final Result Performing Organization Address [facility]/State/[facility] Co de Phone Number [facility] [address] Department [place] [address] * (ABNORMAL) Lipid panel (03/30/2024 9:26 AM CDT) Pathologist [facility] Cholesterol 196 30 - 199 mg/dL Comment: Interpretive Data [...] Data was last revised on 2018. Triglycerides 161(H) <=149 mg/dL [facility] Comment: Interpretive Data [...] Data was last revised on 2018. HDL 64 >=40 mg/dL [facility] Comment: Interpretive Data [...] was last revised on 2018. LDL, calculated 104 <=129 mg/dL [facility] Comment: Interpretive Data [...] was last revised on 2024. Non-HDL Cholesterol 132 mg/dL [facility] Comment: Interpretive Data Ages [...] was last revised on 2018. Chol/HDL ratio 3 [facility] Blood 03/30/2024 9:26 AM CDT 03/30/2024 4:55 PM CDT us Servando Torre MD LAB BLOOD ORDERABLES Final Result [facility] [address] Department [place] [address] documented in this encounter Visit Diagnoses Diagnosis Mixed diabetic hyperlipidemia associated with type 2 diabetes mellitus (HCC) Hypertension associated with diabetes (HCC) Unspecified essential hypertension documented in this encounter Care Teams Photoradio Operator Relationship Specialty Start Date End Date Servando Torre MD [facility] [address] PCP - General Family Medicine 06/19/22 Mariela Denton MD [address] [facility] [address] [place] [address] Referring Physician Gastroenterology 06/19/22 Lexis Barroso OD [address] [place] [id number] Frame Hand 09/19/22 documented as of this encounter
--- OUTSIDE RECORDS SUMMARY | 2024-07-12 19:42 | XMS_ITS | Encounter Summary ---
Author Organization [facility] Healthcare Address [address] [place] [address] Care Team Providers Care Aviation Consultant Name Role Phone Servando Torre MD Primary Care Provider Mariela Denton MD Unavailable [phone] Lexis Barroso OD Unavailable [phone]- [phone] Reason for Visit * Reason Onset Date Comments Medical Question/Miscellaneous 05/28/2024 Encounter Details Date Type Department Care Team (Late st Contact Info) Description 05/28/2024 Telephone [facility] Medical Group Primary Care at [address] [address] Servando Torre MD [address] [place] [address] [address] [place] [address] Medical Question/Miscellaneous Social History Tobacco [...] on file 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 Please disregard. Does message need to be routed? No documented in this encounter Plan of Treatment Not on file documented as of this encounter Visit Diagnoses Not on filedocumented in this encounter Care Teams Aviation Consultant Relationship Specialty Start Date End Date Servando Torre MD [address] [address] PCP - General Family Medicine 06/19/22 Mariela Denton MD [address] [place] [address] Referring Physician Gastroenterology 06/19/22 Lexis Barroso OD [address] [place] [address] Supervisor Filtration 09/19/22 documented as of this encounter
--- OUTSIDE RECORDS SUMMARY | 2024-07-12 19:42 | XMS_ITS | Encounter Summary ---
Author Organization [facility] Healthcare Address [address] [place] [address] Care Team Providers Care Consumer Loan Processor Name Role Phone Servando Torre MD Primary Care Provider Mariela Denton MD Unavailable [phone] [phone] Lexis Barroso OD Unavailable +1- [phone] Reason for Referral * Diagnostic Imaging (Routine) - Closed Specialty Diagnoses / Procedures Referred By Angel t Referred To Contact Diagnoses Accidental fall, subsequent encounter Procedures XR Hip Left 2+ Vw Pricilla Olguin NP [address] [place] [address] Phone: tel: fax: [facility] Medical [facility] Referral ID Status Reason Start Date Expiration Date Visits Re quested Visits Authorized [id number] Closed 06/18/2024 07/18/2025 1 1 RVISOR EPOXY FABRICATION Reason for Visit * Reason Comments Pain Pt c/o 2 falls in e last week and having pain in lower L back and bilateral rib pain. She was xrayed at [facility] at the time of the fall and no fx was seen Encounter Details Date Type Department Care Team (Late st Contact Info) Description 06/18/2024 2:30 PM SUPERVISOR EPOXY FABRICATION Office Visit [facility] [address] [place] [address] Pricilla Olguin NP [address] [place] [address] [address] [place] [address] Accidental fall, subsequent encounter (Primary Dx) Social History Tobacco Use Types [...] on file Legal Sex Female 9:30 AM SUPERVISOR EPOXY FABRICATION Gender Identity Female 04/05/2022 6:17 PM CDT Sexual Orientation Straight 04/05/2022 6: 17 PM CDT documented as of this encounter Last Filed Vital Signs Vital Sign Reading Time Taken Comments Blood Pressure 116/50 06/18/2024 2:34 PM SUPERVISOR EPOXY FABRICATION Pulse 76 06/18/2024 2:34 PM SUPERVISOR EPOXY FABRICATION Temperature 36.4 ??C (97.5 ??F) 06/18/2024 2:34 PM CS T Respiratory Rate 18 06/18/2024 2:34 PM SUPERVISOR EPOXY FABRICATION Oxygen Saturation 96% 06/18/2024 2:34 PM SUPERVISOR EPOXY FABRICATION Inhaled Oxygen Concentration - - Weight - - Height 157.5 cm (5' 2 ) 06/18/2024 2:34 PM SUPERVISOR EPOXY FABRICATION Body Mass Index - - documented in this encounter Progress Notes * Pricilla Olguin NP - 06/18/2024 2:30 PM CST Images from the original note were not included. Subjective/Objective Patient ID: Lisa Allen is a 79 y.o. female. Chief Complaint Pain (Pt c/o 2 falls in the last week and having pain in lower L back and bilateral rib pain. She was xrayed at [facility] at the time of the fall and no fx was seen) Patient presents to convenient care with daughter for complaints of left hip and lower back pain bilaterally. Patient and daughter state that patient fell Friday morning and Friday evening of this week. Patient was taken to [facility] Emergency room on Friday night and had ribs back and bilateral hips x-rayed which were all normal. Daughter states that patient is continuing to have left hip and bilateral low back pain. Patient was given Tylenol to take for pain. Patient has also been applying a topical menthol cream for comfort. Patient lives in an assisted living facility and does get PT regularly. They are also aware of her fall. Patient has an appointment to follow-up with PCP on July 05. Patient denies loss of bowel or bladder function, numbness or tingling in extremities. Daughter would like patient reimaged. Review of Systems Musculoskeletal: Bilateral low back pain and left hip pain Skin: Negative for color change, pallor, rash and wound. All other systems reviewed and are negative. Physical Exam Vitals and nursing note reviewed. Constitutional: General: She is not in acute distress. Appearance: Normal appearance. She is not ill-appearing. Cardiovascular: Rate and Rhythm: Normal rate. Pulses: Normal pulses. Pulmonary: Effort: Pulmonary effort is normal. Musculoskeletal: Comments: Lumbar spine exam - decreased active range of motion throughout lumbar spine region secondary to pain; pain diffuse over bilateral low back and left hip, no step-off, deformity, ecchymosis,erythema, warmth, or swelling; intact distal motor and sensory throughout. Skin: General: Skin is warm and dry. Capillary Refill: Capillary refill takes less than 2 seconds. Findings: No bruising, erythema or rash. Neurological: Mental Status: She is alert and oriented to person, place, and time. Vitals: 06/18/24 1434 BP: 116/50 Pulse: 76 Resp: 18 Temp: 36.4 ??C (97.5 ??F) SpO2: 96% Height: 157.5 cm (5' 2 ) No results found. 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 Type [...] horn of lateral meniscus of right knee Current Outpatient Medications: acetaminophen (acetaminophen Extra Strength) [...] Rfl: 3 busPIRone (BUSPAR) 5 mg tablet, , Disp: , Rfl: calcium citrate-vitamin D3 (Citracal + D Maximum) 315 mg-6.25 mcg (250 unit) per tablet, Take 1 tablet by mouth daily, Disp: 90 tablet, Rfl: 3 cephalexin (KEFLEX) 500 mg capsule, , Disp: , Rfl: cholecalciferol (VITAMIN D-3) 2000 unit tablet, Take [...] catheter every 8 (eight) weeks Infused at: [facility] ([facility] order in [facility] under 'Procedures' tab)., Disp: 1 each, Rfl: 5 metFORMIN XR (GLUCOPHAGE XR) 750 mg 24 hr tablet, Take 1 tablet (750 mg total) by mouth daily with breakfast, Disp: 30 tablet, Rfl: 11 Allergies Allergen Reactions Penicillins Hives She thinks [...] ARTHROPLASTY Left 2015 RETINAL DETACHMENT SURGERY Right Assessment/Plan Diagnoses and all orders for this visit: Accidental fall, subsequent encounter (Primary) - XR Hip Left 2+ Vw; Future -Rest, ice, heat p.r.n. -Lidocaine patch per package directions -May use topical asper cream -Follow-up with PCP -Discussed red flags to present to ED with such as loss of bowel or bladder function, fever, numbness, tingling, increased pain, bruising etc.. -Patient to call Friday to schedule follow up with PCP next week. IMPRESSION: There is new depression of the superior endplate of T11. Margins are sclerotic, but smooth favoring older fracture, but new from the prior CT of 03/18/2023. Correlate clinically for any pain in this area that would suggest a more acute or subacute fracture. No retropulsion. Correlate clinically. CT could be obtained in follow-up as warranted. Levoconvex scoliosis thoracolumbar spine with moderate multilevel spondylosis as above. Again seen is left hip hemiarthroplasty with no radiographic evidence of complication. Prior ORIF more proximal left femur with no radiographic evidence of complication. The plate and cerclage wires overlap the level of the distal medullary stem. No change from prior. No acute fracture. Distal femur not included in the field of view. Follow-up could be obtained only as clinically warranted. Disposition Treatment plan including expectations, follow up, and return precautions discussed with patient/parent, verbalizes understanding. Medication dosage, use, and potential adverse reactions discussed with patient/parent. Advised to follow up with PCP if symptoms do not resolve as expected or sooner if condition worsens. Signs/symptoms warranting ER evaluation reviewed. Patient and/or guardian was given an opportunity to ask questions, questions answered. Pricilla Olguin NP This office note has been partially dictated using CrayonPixel software, and as a result portions of the record may have been created with this software. Occasional wrong-word or 'lfatn-t-ezkj' substitutions may have occurred due to the inherent limitations of voice recognition software. Read the chartcarefully and recognize, using context, where substitutions have occurred. RVISOR EPOXY FABRICATION RVISOR EPOXY FABRICATION documented in this encounter Plan of Treatment Not on file documented as of this encounter Results * XR Hip Left 2+ Vw (06/18/2024 3:04 PM SUPERVISOR EPOXY FABRICATION) Anatomical Region Laterality Modality Lower Extremities, Hip, Pelvis Left D igital Radiography 06/18/2024 5:05 PM SUPERVISOR EPOXY FABRICATION Narrative 06/18/2024 5:13 PM SUPERVISOR EPOXY FABRICATION EXAM DESCRIPTION: XR HIP LEFT 2 OR [...] no change from prior CT. There is jgtt-mw-dwdfljbr multilevel degenerative endplate change with no acute [...] D: ??06/18/2024 5:13 PM T: Report ID: [id number] Reading Location: [id number] Procedure Note Teofilo Rand MD - 06/18/2024 [...] no change from prior CT. There is hngw-lf-mnfzrjhr multilevel degenerative endplate change with no acute [...] Teofilo Rand M.D. MJ T: Report ID: [id number] Reading Location: [place] [address] Pricilla Olguin BULK SUGAR HANDLER IMG XR PROCEDURES Final Result documented in this encounter Visit Diagnoses Diagnosis Accidental fall, subsequent encounter- Primary Accidental fall, subsequent encounter documented in this encounter Historical Medications * This list may reflect changes made after this encounter. Medication Sig Dispense Quantity Refills Last Filled Start D ate End Date cephalexin (KEFLEX) 500 mg capsule 06/10/2024 07/05/2024 busPIRone (BUSPAR) 5 mg tablet 05/28/2024 07/05/2024 added in this encounter Care Teams Consumer Loan Processor Relationship Specialty Start Date End Date Servando Torre MD [facility] [address] PCP - General Family Medicine 06/19/22 Mariela Denton MD [facility] [address] [facility] [address] [place] [address] Referring Physician Gastroenterology 06/19/22 Lexis Barroso OD [address] [place] [address] Pediatric Np 09/19/22 documented as of this encounter
--- OUTSIDE RECORDS SUMMARY | 2024-07-12 19:43 | XMS_ITS | Encounter Summary ---
Author Organization [facility] Address [address] [place] [address] Phone Care Team Providers Care Database Administrator Name Role Phone Servando Torre MD Primary Care Provider [phone] [phone] Mariela Denton MD Unavailable [phone] Lexis Barroso OD Unavailable [phone]- [phone] Encounter Details Date Type Department Care Team (Late st Contact Info) Description 12/11/2023 Orders Only [facility] Scanning, Provider Social History Tobacco Use Types Packs/Day Years [...] points, staff should administer the PHQ-9) 0 09/30/2023 Personal Safety Answer Date Recorded Have you ever been in or are you currently in a harmful physical or emotional relationship or is someone making you feel afraid or unsafe? Denies 03/07/2023 Comments No Sex and Gender Information Value Date Recorded Sex Assigned at Not on file Legal Sex Female 9:30 AM NETWORK RELATIONS CONSULTANT Gender Identity Female 04/05/2022 6:17 PM CDT Sexual Orientation Straight 04/05/2022 6: 17 PM CDT documented as of this encounter Plan of Treatment Not on file documented as of this encounter Procedures Procedure Name Priority Date/Time Associated Diagnosis Comments SCAN - LABS 12/11/2023 documented in this encounter Results * SCAN - LABS (12/11/2023) us Provider Scanning Final Result documented in this encounter Visit Diagnoses Not on filedocumented in this encounter Care Teams Database Administrator Relationship Specialty Start Date End Date Servando Torre MD [facility] [address] PCP - General Family Medicine 06/19/22 Mariela Denton MD [facility] [address] [place] [address] Referring Physician Gastroenterology 06/19/22 Lexis Barroso OD [address] [place] [address] Veneer Jointer Helper 09/19/22 documented as of this encounter
--- OUTSIDE RECORDS SUMMARY | 2024-07-12 19:43 | XMS_ITS | Encounter Summary ---
Author Organization [facility] Address [address] [place] [address] Phone Care Team Providers Care Taper Machine Name Role Phone Servando Torre MD Primary Care Provider [phone] [phone] Mariela Denton MD Unavailable [phone] Lexis Barroso OD Unavailable [phone]- [phone] Reason for Visit * Reason Onset Date Comments Thiopurine metabolites to be drawn at 06/10 infu brian appt 05/20/2023 Encounter Details Date Type Department Care Team (Late st Contact Info) Description 05/20/2023 Documentation [facility] Gastroenterology [address] [place] [address] [place] [phone] Janice Baez LPN Thiopurine metabolites to be drawn at 06/10 infusion appt Social History Tobacco Use Types Packs/Day Years Used Date Smoking Tobacco: Never Passive Smoke Exposure: Never Smokeless Tobacco: Never AUDIT-C Answer Date Recorded Q1: How often do you have a drink containing alcohol? Never 11/29/2022 Q2: How many drinks containi ng alcohol do you have on a typical day when you are drinking? Patient does not drink Q3: How often do you have si x or more drinks on one occasion? Never 11/29/2022 PHQ-2 Answer Date Recorded PHQ-2 Total Score (If total score is 3 or more points, staff should administer the PHQ-9) 0 03/27/2023 Personal Safety Answer Date Recorded Have you ever been in or are you currently in a harmful physical or emotional relationship or is someone making you feel afraid or unsafe? Denies 03/07/2023 Comments No Sex and Gender Information Value Date Recorded Sex Assigned at Not on file Legal Sex Female 9:30 AM SOCIAL WORK FACULTY MEMBER Gender Identity Female 04/05/2022 6:17 PM CDT Sexual Orientation Straight 04/05/2022 6: 17 PM CDT documented as of this encounter Progress Notes * Janice Baez LPN - 05/20/2023 8:16 AM CDT Msg received from FRAUD EXAMINER Mayra Zelaya who saw pt in clinic on 05/16/2023 for follow up, as pt'sLFTs were up a little with last labs, FRAUD EXAMINER advised that we have pt's infusion team draw thiopurine metabolites at her next infusion appt on 06/10/2023. One time external order placed for thiopurine metabolites. Order faxed to pt's infusion team at . Asked infusion team to contact our office if they are unable to draw this. Reminder set for follow up of results. -------Fax Transmission Report------- To: Recipient at [phone] Subject: Joseph Allen - Lab Order [Secure] Result: The transmission was successful. Explanation: All Pages Ok Pages Sent: 2 Connect Time: 0 minutes, 33 seconds Transmit Time: 05/20/2023 08:56 Transfer Rate: 09102 Status Code: 0000 Retry Count: 3 Job Id: [id number] Unique Id: [id number] Fax Line: 4 Fax Desk Clerks Supervisor: [id number] documented in this encounter Plan of Treatment Scheduled Orders Name Type Priority Associated Diagnoses Orde r Schedule Thiopurine metabolites Lab Routine Chronic ulcerative colitis, unspecified complication (HCC) Elevated LFTs High risk medications (not anticoagulants) long-term use Expected: 06/10/2023 (Approximate), Expires: 05/20/2024 documented as of this encounter Visit Diagnoses Diagnosis Chronic ulcerative colitis, unspecified complication (HCC)- Primary Elevated LFTs Other abnormal blood chemistry High risk medications (not anticoagulants) long-term use Encounter for long-term (current) use of other medications documented in this encounter Care Teams Taper Machine Relationship Specialty Start Date End Date Servando Torre MD [address] [facility] [address] [place] [address] PCP - General Family Medicine 06/19/22 Mariela Denton MD [address] [place] [address] Referring Physician Gastroenterology 06/19/22 Lexis Barroso OD [address] [place] [address] Automatic Wheel Line Operator 09/19/22 documented as of this encounter
--- OUTSIDE RECORDS SUMMARY | 2024-07-12 19:43 | XMS_ITS | Encounter Summary ---
Author Organization [facility] Address [address] [place] [address] Phone Care Team Providers Care Foreign Banknote Teller Name Role Phone Servando Torre MD Primary Care Provider [phone] [phone] Mariela Denton MD Unavailable [phone] Lexis Barroso OD Unavailable [phone]- [phone] Encounter Details Date Type Department Care Team (Late st Contact Info) Description 06/18/2023 Orders Only [facility] Gastroenterology [facility] Medical Office Building [address] [place] [address] Mayra Zelaya, CONSTANZA [address] [place] [address] High risk medications (not anticoagulants) long-term use (Primary Dx); Ulcerative colitis with complication, unspecified location (HCC); Ulcerative pancolitis without complication (CMS/HCC) (HCC) Social History Tobacco Use Types Packs/Day [...] points, staff should administer the PHQ-9) 0 06/27/2023 Personal Safety Answer Date Recorded Have you ever been in or are you currently in a harmful physical or emotional relationship or is someone making you feel afraid or unsafe? Denies 03/07/2023 Comments No Sex and Gender Information Value Date Recorded Sex Assigned at Not on file Legal Sex Female 9:30 AM LIP AND GATE BUILDER Gender Identity Female 04/05/2022 6:17 PM CDT Sexual Orientation Straight 04/05/2022 6: 17 PM CDT documented as of this encounter Ordered Prescriptions Prescription Sig Dispense Quantity Refills Last Filled Start Date End Date azaTHIOprine (IMURAN) 50 mg tabletIndications: Ulcerative Colitis Take 1.5 tablets (75 mg total) by mouth daily Please get drug level checked in one month. Safety labs required every 3 months for med refills. 45 tablet 1 06/18/2023 4 documented in this encounter Progress Notes * Mayra Zelaya NP - 06/18/2023 11:35 AM CST Elevated metabolites. Patient asked to decrease dose to 75mg daily - 50mg tablets sent in for this purpose. Will recheck levels in 1 months. Portal with lab order and instructions sent AND GATE BUILDER documented in this encounter Miscellaneous Notes * Addendum Note - Link Gomez - 06/18/2023 11:35 AM CSTAddended by: LINK GOMEZ on: 07/24/2023 12:32 PM Modules accepted: Orders AND GATE BUILDER documented in this encounter Plan of Treatment Not on file documented as of this encounter Results * (ABNORMAL) Thiopurine metabolites (07/24/2023 12:36 PM LIP AND GATE BUILDER) 6-TG, bld 214(L) 235 - 450 [facility] ([place]) Comment: Decreased possibility of response; suboptimal dosing or noncompliance. 6-MMP, bld 2241 < or = 5700 [facility] ([place]) Comment: Decreased risk of hepatotoxicity. ADDITIONAL INFORMATION Testing performed by Liquid Chromatography-Tandem Mass Spectrometry (LC-MS/MS) This test was developed and its performance characteristics determined by [facility] in a manner consistent with CLIA requirements. This test has not been cleared or approved by the U.S. Food and Drug Administration. Test Performed by: [facility] - [facility] [address] [place] [address] Senior Industrial Engineer: Holden Redman M.D. Ph.D.; CLIA# [id number] Blood 07/24/2023 12:3 6 PM LIP AND GATE BUILDER 07/24/2023 12:41 PM LIP AND GATE BUILDER Josué Cook MD LAB BLOOD ORDERABLES F inal Result [facility] ([place]) 1 [facility] Department [place] [address] documented in this encounter Visit Diagnoses Diagnosis High risk medications (not anticoagulants) long-term use- Primary Encounter for long-term (current) use of other medications Ulcerative colitis with complication, unspecified location (HCC) Ulcerative pancolitis without complication (CMS/HCC) (HCC) documented in this encounter Discontinued Medications Medication Sig Discontinue Reason Start Date End Da te azaTHIOprine (IMURAN) 100 mg tabletIndications:Ulcera tive colitis with complication, unspecified location (HCC) Take 1 tablet (100 mg total) by mouth daily Safety labs required every 3 months for med refills, next labs due by the end of 05/2023. Reorder 04/01/2023 06/18/2023 documented as of this encounter Care Teams Foreign Banknote Teller Relationship Specialty Start Date End Date Servando Torre MD [address] [address] PCP - General Family Medicine 06/19/22 Mariela Denton MD [address] [place] [address] Referring Physician Gastroenterology 06/19/22 Lexis Barroso OD [address] [place] [address] Line Up Examiner 09/19/22 documented as of this encounter
--- OUTSIDE RECORDS SUMMARY | 2024-07-12 19:43 | XMS_ITS | Encounter Summary ---
Author Organization [facility] Healthcare Address [address] [place] [address] Care Team Providers Care Linux Devops Engineer Name Role Phone Servando Torre MD Primary Care Provider [phone] Mariela Denton MD Unavailable [phone] [phone] Lexis Barroso OD Unavailable [phone]- [phone] Encounter Details Date Type Department Care Team (Latest Contact Info) Description 07/01/2023 3:30 PM CAREER TRANSITION SPECIALIST - 07/01/2023 11:59 PM CAREER TRANSITION SPECIALIST Hospital Encounter [facility] [address] [place] [id number] UTI symptoms Discharge Disposition: Discharge to home or self [...] on file Legal Sex Female 9:30 AM CAREER TRANSITION SPECIALIST Gender Identity Female 04/05/2022 6:17 PM CDT Sexual Orientation Straight 04/05/2022 6: 17 PM CDT documented as of this encounter Medications at Time of Discharge amLODIPine (NORVASC) 5 mg tablet Take 1 tablet (5 mg total) by mouth daily 90 tablet 1 01/14/2023 cholecalciferol (VITAMIN D-3) 2000 unit tabletIndications: Low serum vitamin D Take 1 tablet (2,000 Units total) by mouth daily Low Vitamin D level from 05/30/2022. 90 tablet 3 05/31/2022 ferrous sulfate ER 324 mg (65 mg iron) EC tabletIndications: Iron Deficiency Anemia Take 1 tablet (324 mg total) by mouth daily with breakfast 90 tablet 1 04/01/2023 metFORMIN XR (GLUCOPHAGE XR) 750 mg 24 hr tablet Take 1 tablet (750 mg total) by mouth daily with breakfast 30 tablet 11 05/16/2023 multivitamin capsule Take 1 capsule by mouth daily OneTouch Delica Plus Lancet 33 gauge miscIndications:Pr ediabetes 1 each by other route daily To check glucose with glucose monitor and strip 100 each 3 08/16/2022 OneTouch Ultra Test stripIndications:P rediabetes 1 each by other route daily To check blood glucose 50 each 11 08/16/2022 vedolizumab (ENTYVIO) 300 mg recon solnIndications:Ch ronic ulcerative colitis, unspecified complication (HCC) Infuse 5 mL (300 mg total) into a venous catheter every 8 (eight) weeks Infused at: [facility] ([facility] order in Epic under 'Procedures' tab). 1 each 5 04/29/2023 acetaminophen (acetaminophen Extra Strength) 500 mg tablet Take 1 tablet (500 mg total) by mouth every 6 (six) hours as needed 09/30/2022 4 aspirin 81 mg enteric coated tablet Take 1 tablet (81 mg total) by mouth daily 4 azaTHIOprine (IMURAN) 50 mg tabletIndications: Ulcerative Colitis Take 1.5 tablets (75 mg total) by mouth daily Please get drug level checked in one month. Safety labs required every 3 months for med refills. 45 tablet 1 06/18/2023 4 calcium citrate-vitamin D3 250 mg-5 mcg (200 unit) tablet Take 2 tablets by mouth 4 lamoTRIgine (LaMICtal) 100 mg tablet Take 1 tablet (100 mg total) by mouth 2 (two) times a day 180 tablet 1 06/24/2023 4 losartan (COZAAR) 25 mg tablet Take 1 tablet (25 mg total) by mouth daily 30 tablet 11 06/26/2023 3 mesalamine (APRISO) 0.375 gram 24 hr capsuleIndications :Ulcerative Colitis Take 4 capsules (1.5 g total) by mouth daily 120 capsule 08/15/2022 4 metoprolol tartrate (LOPRESSOR) 50 mg immediate release tablet Take 1 tablet (50 mg total) by mouth 2 (two) times a day 180 tablet 1 02/20/[address] (PROTONIX) 40 mg EC tablet Take 1 tablet (40 mg total) by mouth daily 90 tablet 1 02/07/2023 4 pravastatin (PRAVACHOL) 40 mg tablet Take 1 tablet (40 mg total) by mouth daily 90 tablet 1 02/07/2023 4 documented as of this encounter Discharge Disposition Disposition Code Departure Means Destination Discharge to home or self care documented in this encounter Plan of Treatment Not on file documented as of this encounter Procedures Procedure Name Priority Date/Time Associated Diagnosis Comments URINALYSIS AND REFLEX TO MICROSCOPIC Routine 07/01/2023 3:30 PM CAREER TRANSITION SPECIALIST UTI symptoms URINALYSIS, MICROSCOPIC ONLY Routine 07/01/2023 3:30 PM CAREER TRANSITION SPECIALIST UTI symptoms URINE CULTURE Routine 07/01/2023 3:30 PM CAREER TRANSITION SPECIALIST UTI symptoms documented in this encounter Results * (ABNORMAL) Urinalysis, microscopic only (07/01/2023 3:30 PM CAREER TRANSITION SPECIALIST) WBC, ur 0-5 0 - 5 /HPF [facility] RBC, ur 3-5(A) 0 - 2 /HPF [facility] Epithelial cells, squamous, ur 1-5 0 - 5 /HPF [facility] Calcium oxalate crystals, ur 3+(A) [facility] Urine 07/01/2023 3:30 PM CAREER TRANSITION SPECIALIST 07/01/2023 6:41 PM CAREER TRANSITION SPECIALIST Servando Torre MD LAB URINE ORDERABLES Final Result Performing Organization Address [facility] de Phone Number [facility] [address] [place] [address] * Urine culture Urine, clean voided (07/01/2023 3:30 PM CAREER TRANSITION SPECIALIST) Report Final Report: Less than 100,000 colonies/mL (clinically insignificant growth based on current clinical standards) [facility] Comment:Testing performed by : [facility], [address] [place]., [address] Organism (CLINICALLY INSIGNIFICANT GROWTH [facility] Urine, clean voided 07/01/2023 3:30 PM CAREER TRANSITION SPECIALIST 07/01/2023 9:57 PM CAREER TRANSITION SPECIALIST Narrative [facility] - 07/03/2023 8:11 AM CAREER TRANSITION SPECIALIST Testing performed by [facility] Microbiology Laboratory ([phone]) Servando Torre MD LAB MICROBIOLOGY - GENERAL ORDERABLES Final Result Performing Organization Address [facility] Phone Number [facility] [address] [place] [address] * (ABNORMAL) Urinalysis reflex to microscopic (07/01/2023 3:30 PM CAREER TRANSITION SPECIALIST) Color, ur Yellow Yellow [facility] Clarity, ur Cloudy(A) Clear [facility] Specific gravity, ur 1.016 1.003 - 1.030 [facility] pH, urine 7.0 [facility] Comment: Interpretive Data ? Urine pH is affected by diet, medications, systemic acid-base disturbances, and renal tubular function. ??pH may affect urinary stone formation. ??For example, urine pH below 6.0 may help reduce the tendency for calcium phosphate stones and pH greater than 6.0 may reduce the tendency for uric acid stone formation. Source: [facility] [place] Current Interpretive Data was last revised on 2017 Protein, ur ql 1+(A) Negative [facility] Glucose, ur ql Negative Negative [facility] Ketones, ur Negative Negative [facility] Bilirubin, ur Negative Negative [facility] Blood, ur Negative Negative [facility] Comment:Ascorbic acid identi fied in urine; possible false negative blood result. A microscopic exam will be added to identify RBCs. Urobilinogen, ur <2.0 <2.0 mg/dL [facility] Nitrite, ur Negative Negative [facility] Leukocyte esterase, ur 2+(A) Negative [facility] UA reflex comment Reflex to microscopic UA will be performed. [facility] Urine 07/01/2023 3:30 PM CAREER TRANSITION SPECIALIST 07/01/2023 6:41 PM CAREER TRANSITION SPECIALIST us Servando Torre MD LAB URINE ORDERABLES Final Result Performing Organization Address City/State/[facility] [place] Phone Number [facility] [address] [facility] Department [place] [address] documented in this encounter Visit Diagnoses Diagnosis UTI symptoms documented in this encounter Care Teams Linux Devops Engineer Relationship Specialty Start Date End Date Servando Torre MD [facility] [address] [facility] [address] [place] [address] PCP - General Family Medicine 06/19/22 Mariela Denton MD [facility] [address] [place] [address] Referring Physician Gastroenterology 06/19/22 Lexis Barroso OD [address] [place] [address] Internet Marketing Manager 09/19/22 documented as of this encounter
--- OUTSIDE RECORDS SUMMARY | 2024-07-12 19:43 | XMS_ITS | Encounter Summary ---
Author Organization [facility] Address [address] [place] [address] Phone Care Team Providers Care Seals Engraver Name Role Phone Servando Torre MD Primary Care Provider [phone] Mariela Denton MD Unavailable [phone] Lexis Barroso OD Unavailable [phone]- [phone] Encounter Details Date Type Department Care Team (Late st Contact Info) Description 06/09/2023 Telephone [facility] Epilepsy [address] [facility] 6th [place] [address] [place] [address] Adria Burleson MD [address] [facility] [address] [place] [address] Social History Tobacco Use Types Packs/Day Years [...] file Legal Sex Female 9:30 AM COMMERCIAL LITIGATION PARALEGAL Gender Identity Female 04/05/2022 6:17 PM CDT Sexual Orientation Straight 04/05/2022 6: 17 PM CDT documented as of this encounter Miscellaneous Notes * Telephone Encounter - Sherita Licona RN - 06/09/2023 2:26 PM COMMERCIAL LITIGATION PARALEGAL Spoke with Aby. Relayed Dr. Anthony's response. Verbalized understanding. She will keep our office updated and let us know if Lisa has any further symptoms/seizure events. ERCIAL LITIGATION PARALEGAL * Telephone Encounter - Sherita Licona RN - 06/09/2023 8:44 AM COMMERCIAL LITIGATION PARALEGAL Aby Johansen called with an update. She reports that Lisa was admitted to [facility] on Friday and discharged Friday afternoon. 06/01/23, was the first day Lisa was on LTG alone and LEV was discontinued. 06/02/23, she had reached out to our office to report symptoms of nausea, unsteadiness, and aggression. These symptoms are similar to past seizure events but did not have the staring episode. That evening she had multiple episodes of nausea/vomiting/confusion. She also had an episode much like previous seizures-nausea and could no longer answer and had the faraway stare that lasted for 3 minutes. She was confused and agitated following the event. 06/03/23, she woke up with nausea/confusion/slight temp and word finding difficulty. Her family was concerned and she was taken to ER to be evaluated. Aby reports that EEG, CT, MRI and ECHO were completed and all negative. She was diagnosed with UTI and given IV Rocephin while inpatient. She reports that her symptoms have improved. Aby does report that in the last 3 weeks they have seen a decline in Lisa. She is having more confusion and aggressive/anger issues are worse despite being off of keppra. Her concern: Are these symptoms that she experienced that led to ER evaluation related to recent change in medications or could they have been caused by the diagnosis of UTI. Previously she was informed that these symptoms are difficult to interpret. Also, they are getting ready to travel to [place] on Friday. Any reasons why they should not travel with [facility] at this time? Lisa is going to follow up with PCP on Friday. They will discuss providing a new UA to see if UTI has completely resolved. Any recommendations at this time? Thanks~Sherita AED: LTG 100 mg bid ERCIAL LITIGATION PARALEGAL documented in this encounter Plan of Treatment Not on file documented as of this encounter Visit Diagnoses Not on filedocumented in this encounter Discontinued Medications Medication Sig Discontinue Reason Start Date End Da te levETIRAcetam (KEPPRA) 500 mg tablet Take 1 tablet (500 mg total) by mouth 2 (two) times a day 03/17/2023 06/09/2023 documented as of this encounter Care Teams Seals Engraver Relationship Specialty Start Date End Date Servando Torre MD [facility] [address] PCP - General Family Medicine 06/19/[address] [facility] [address] [place] [address] Referring Physician Gastroenterology 06/19/22 Lexis Barroso OD [address] [place] [id number] Lot Attendant 09/19/22 documented as of this encounter
--- OUTSIDE RECORDS SUMMARY | 2024-07-12 19:43 | XMS_ITS | Encounter Summary ---
Author Organization [facility] Healthcare Address [address] [place] [address] Care Team Providers Care Dock Operator Name Role Phone Servando Torre MD Primary Care Provider Mariela Denton MD Unavailable [phone] Lexis Barroso OD Unavailable [phone]- [phone] Reason for Visit * Reason Comments Follow-up 3 month f/u Encounter Details Date Type Department Care Team (Late st Contact Info) Description 01/01/2024 2:00 PM CDT Office Visit [facility] Medical [facility] Primary Care at [address] [address] Servando Torre MD [address] [place] [address] [address] [place] [address] Hypertension associated with diabetes (HCC) (Primary Dx); Mixed diabetic hyperlipidemia associated with type 2 diabetes mellitus (HCC); Gastroesophageal reflux disease without esophagitis Social History Tobacco Use Types Packs/Day Years [...] on file 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 Gender Identity Female 04/05/2022 6:17 PM CDT Sexual Orientation Straight 04/05/2022 6: 17 PM CDT documented as of this encounter Last Filed Vital Signs Vital Sign Reading Time Taken Comments Blood Pressure 108/60 01/01/2024 2:10 PM CDT Pulse 68 01/01/2024 2:10 PM CDT Temperature 36.1 ??C (96.9 ??F) 01/01/2024 2:10 PM CD T Respiratory Rate 18 01/01/2024 2:10 PM CDT Oxygen Saturation 97% 01/01/2024 2:10 PM CDT Inhaled Oxygen Concentration - - Weight 68 kg (150 lb) 01/01/2024 2:10 PM CDT Height 157.5 cm (5' 2 ) 01/01/2024 2:10 PM CDT Body Mass Index 27.44 01/01/2024 2:10 PM CDT documented in this encounter Patient Instructions * Patient Instructions* Servando Torre MD - 01/01/2024 2:00 PM CDT A1c today 6.8%, increased from 6.3% We'll watch, of course, continue current regimen Scripts have been changed Joke of the day: An Apple a day really can keep the Dr away... ...but only if you aim it well documented in this encounter Ordered Prescriptions Prescription Sig Dispense Quantity Refills Last Filled Start Date End Date pantoprazole DR (PROTONIX) 40 mg EC tabletIndications:Ga stroesophageal reflux disease without esophagitis Take 1 tablet (40 mg total) by mouth nightly 01/01/2024 losartan (COZAAR) 100 mg tabletIndications:Hy pertension associated with diabetes (HCC) Take 1 tablet (100 mg total) by mouth nightly 01/01/2024 pravastatin (PRAVACHOL) 40 mg tabletIndications:Mi xed diabetic hyperlipidemia associated with type 2 diabetes mellitus (HCC) Take 1 tablet (40 mg total) by mouth nightly 01/01/2024 4 documented in this encounter Progress Notes * Servando Torre MD - 01/01/2024 2:00 PM CDT SUBJECTIVE: Chief Complaint Patient presents with ??? Follow-up 3 month f/u 78 y.o. female for follow up of diabetes, hypertension, hyperlipidemia, dementia. Diabetic Review of Systems - medication compliance: compliant all of the time, diabetic diet compliance: compliant most of the time, home glucose monitoring: is performed regularly, nonfasting values range 130's in the mornings, further diabetic ROS: no polyuria or polydipsia, no chest pain, dyspnea or TIA's, no numbness, tingling or pain in extremities, no unusual visual symptoms, no hypoglycemia, weight has increased. Other symptoms and concerns: she has finished PT at the facility, is doing OT at the house. She has seen her eye doctor recently, some decrease in vision secondary to retina detachment in the past. Memory has been stable. Current Outpatient Medications Medication Sig Dispense Refill ??? acetaminophen (acetaminophen Extra Strength) 500 mg tablet Take 1 tablet (500 mg total) by mouth every 6 (six) hours as needed ??? amLODIPine (NORVASC) 5 mg tablet Take 1 tablet (5 mg total) by mouth daily 90 tablet 1 ??? aspirin 81 mg enteric coated tablet Take 1 tablet (81 mg total) by mouth daily 90 tablet 3 ??? busPIRone (BUSPAR) 5 mg tablet Take 1 tablet (5 mg total) by mouth 2 (two) times a day 60 tablet 2 ??? calcium citrate-vitamin D3 (Citracal + D Maximum) 315 mg-6.25 mcg (250 unit) per tablet Take 1 tablet by mouth daily 90 tablet 3 ??? cholecalciferol (VITAMIN D-3) 2000 unit tablet Take 1 tablet (2,000 Units total) by mouth dailyLow Vitamin D level from 05/30/2022. 90 tablet 3 ??? ferrous sulfate ER 324 mg (65 mg iron) EC tablet Take 1 tablet (324 mg total) by mouth daily with breakfast 90 tablet 1 ??? lamoTRIgine (LaMICtal) 100 mg tablet Take 1 tablet (100 mg total) by mouth 2 (two) times a day 180 tablet 1 ??? losartan (COZAAR) 100 mg tablet Take 1 tablet (100 mg total) by mouth daily 30 tablet 11 ??? melatonin tablet Take 1 tablet (3 mg total) by mouth 3 (three) times a week ??? mesalamine (APRISO) 0.375 gram 24 hr capsule Take 2 capsules by mouth in the morning and 2 capsules in the evening 120 capsule 5 ??? metFORMIN XR (GLUCOPHAGE XR) 750 mg 24 hr tablet Take 1 tablet (750 mg total) by mouth daily with breakfast 30 tablet 11 ??? metoprolol tartrate (LOPRESSOR) 50 mg immediate release tablet Take 1 tablet (50 mg total) by mouth 2 (two) times a day 180 tablet 1 ??? multivitamin capsule Take 1 capsule by mouth daily ??? OneTouch Delica Plus Lancet 33 gauge misc 1 each by other route daily To check glucose with glucose monitor and strip 100 each 3 ??? OneTouch Ultra Test strip 1 each by other route daily To check blood glucose 50 each 11 ??? pantoprazole DR (PROTONIX) 40 mg EC tablet Take 1 tablet (40 mg total) by mouth daily 90 tablet3 ??? pravastatin (PRAVACHOL) 40 mg tablet Take 1 tablet (40 mg total) by mouth nightly 90 tablet 3 ??? rivastigmine (EXELON) 4.6 mg/[address] 4.6 mg on the skin daily 30 patch 1 ??? vedolizumab (ENTYVIO) 300 mg recon soln Infuse 5 mL (300 mg total) into a venous catheter every8 (eight) weeks Infused at: [facility] ([facility] order in Epic under 'Procedures' tab). 1 each 5 ??? magnesium carbonate (MAGONATE) liquid (54 mg of elemental magnesium/5 mL) Take 10 mL (108 mg ofelemental magnesium total) by mouth nightly Take 2 Tablets (235mg) nightly (Patient not taking: Reported on 01/01/2024) 300 mL 11 ??? rivastigmine (EXELON) 4.6 mg/[address] 4.6 mg on the skin daily (Patient not taking: Reported on 01/01/2024) 30 patch 0 No current facility-administered medications for this visit. OBJECTIVE: BP 108/60 (BP Location: Right arm, Patient Position: Sitting) Pulse 68 Temp 36.1 ??C (96.9 ??F)(Temporal) Resp 18 Ht 157.5 cm (5' 2 ) Wt 68 kg (150 lb) SpO2 97% BMI 27.44 kg/m?? Physical Exam Vitals reviewed. Constitutional: Appearance: She is overweight. HENT: Head: Normocephalic and atraumatic. Cardiovascular: Rate and Rhythm: Normal rate and regular rhythm. Pulmonary: Breath sounds: No wheezing, rhonchi or rales. Neurological: General: No focal deficit present. Mental Status: She is alert. Mental status is at baseline. Psychiatric: Mood and Affect: Mood normal. Lab/Current Medication Review: No results found for this or any previous visit (from the past 24 hour(s)). No results found. Diagnoses and all orders for this visit: Hypertension associated with diabetes (HCC) (Primary) Comments: BP is well controlled continuing amlodipine, metoprolol a1c today changed losartan to qhs Orders: - POCT hemoglobin A1c - losartan (COZAAR) 100 mg tablet; Take 1 tablet (100 mg total) by mouth nightly - CBC with auto differential; Future - Comprehensive metabolic panel; Future - Hemoglobin A1c; Future Mixed diabetic hyperlipidemia associated with type 2 diabetes mellitus (HCC) Comments: continuing pravavstatin changed to qhs Orders: - POCT hemoglobin A1c - pravastatin (PRAVACHOL) 40 mg tablet; Take 1 tablet (40 mg total) by mouth nightly - Hemoglobin A1c; Future - Lipid panel; Future Gastroesophageal reflux disease without esophagitis Comments: symptoms controlled continuing pantoprazole 40 mg qhs Orders: - pantoprazole DR (PROTONIX) 40 mg EC tablet; Take 1 tablet (40 mg total) by mouth nightly documented in this encounter Miscellaneous Notes * Addendum Note - Lydia Otto - 01/01/2024 2:00 PM CDTAddended by: LYDIA OTTO on: 03/30/2024 09:26 AM Modules accepted: Orders documented in this encounter Plan of Treatment Not on file documented as of this encounter Procedures Procedure Name Priority Date/Time Associated Diagnosis Comments POCT HEMOGLOBIN A1C Routine 01/01/2024 2 :39 PM CDT Hypertension associated with diabetes (HCC) Mixed diabetic hyperlipidemia associated with type 2 diabetes mellitus (HCC) documented in this encounter Results * (ABNORMAL) Lipid panel (03/30/2024 9:26 AM CDT) Cholesterol 196 30 - 199 mg/dL Comment: [...] LAB BLOOD ORDERABLES Final Result [facility] [address] [place] [address] * (ABNORMAL) Hemoglobin A1c (03/30/2024 9:26 AM CDT) Hgb A1C 6.8(H) 4.0 - 5.6 % Estimated Average Glucose 148 mg/dL [facility] Comment: The ADA recommends reporting an estimated Average Glucose (eAG) with all Hemoglobin A1c results using the equation derived from a study of 507 normal and diabetic adults. ??Minority populations were underrepresented and children were not included. ?? (Diabetes Care 31:8718-2811, 2008). ??The eAG is not equivalent to a fasting glucose. Blood 03/30/2024 9:26 AM CDT 03/30/2024 4:55 PM CDT Servando Torre MD LAB BLOOD ORDERABLES Final Result [facility] [address] Department [place] [address] * Comprehensive metabolic panel (03/30/2024 9:26 AM CDT) Sodium 143 135 - 145 mmol/L Potassium, pl 4.0 3.3 - 4.9 mmol/L [facility] Chloride 104 97 - 110 mmol/L [facility] CO2 30 22 - 32 mmol/L [facility] Anion gap 9 2 - 15 mmol/L [facility] BUN 13 6 - 25 mg/dL [facility] Creatinine 0.94 0.60 - 1.10 mg/dL [facility] [...] BLOOD ORDERABLES Final Result Performing Organization Address City/[facility]/ZIP Co de Phone Number [facility] [address] [place] [address] * (ABNORMAL) CBC with auto differential (03/30/2024 9:26 AM CDT) [facility] WBC 8.4 3.8 - 9.9 K/cumm Hgb 14.9 11.9 - 15.5 g/dL [facility] Hct 47.6(H) 35.6 - 45.5 % [facility] Plt 308 150 - 400 K/cumm [facility] MPV 9.6 9.1 - 12.3 fL [facility] RBC 5.14 3.90 - 5.20 M/cumm [facility] MCV 92.6 81.3 - 96.4 fL [facility] MCH 29.0 27.1 - 33.3 pg [facility] MCHC 31.3(L) 32.3 - 35.7 g/dL [facility] RDW CV 12.8 11.1 - 14.9 % [facility] RDW SD 43.6 35.7 - 48.1 fL [facility] NRBC abs 0.00 0.00 - 0.01 K/cumm [facility] Blood 03/30/2024 9:26 AM CDT 03/30/2024 4:55 PM CDT Servando Torre MD LAB BLOOD ORDERABLES Final Result Performing Organization Address City/[facility]/ZIP Co de Phone Number [facility] [address] Department of [email or web address] [place], [place] [id number] * (ABNORMAL) POCT hemoglobin A1c (01/01/2024 2:39 PM CDT) Hemoglobin A1C, POC 6.8 % Blood 01/01/2024 2:39 PM CDT Servando Torre MD POINT OF CARE TEST ORDERABL ES Final Result documented in this encounter Visit Diagnoses Diagnosis Hypertension associated with diabetes (HCC)- Primary Unspecified essential hypertension Mixed diabetic hyperlipidemia associated with type 2 diabetes mellitus (HCC) Gastroesophageal reflux disease without esophagitis Esophageal reflux documented in this encounter Discontinued Medications Medication Sig Discontinue Reason Start Date End Da te losartan (COZAAR) 100 mg tablet Take 1 tablet (100 mg total) by mouth daily 07/18/2023 01/01/[address] (PROTONIX) 40 mg EC tablet Take 1 tablet (40 mg total) by mouth daily 08/27/2023 01/01/2024 pravastatin (PRAVACHOL) 40 mg tablet Take 1 tablet (40 mg total) by mouth nightly 08/27/2023 01/01/2024 magnesium carbonate (MAGONATE) liquid (54 mg of elemental magnesium/5 mL) Take 10 mL (108 mg of elemental magnesium total) by mouth nightly Take 2 Tablets (235mg) nightly 08/27/2023 01/01/2024 rivastigmine (EXELON) 4.6 mg/24 hourIndications: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 melatonin tablet Take 1 tablet (3 mg total) by mouth 3 (three) times a week added in this encounter Care Teams Dock Operator Relationship Specialty Start Date End Date Servando Torre MD [facility] [address] [place] [address] PCP - General Family Medicine 06/19/22 Mariela Denton MD [address] [place] [address] Referring Physician Gastroenterology 06/19/22 Lexis Barroso OD [address] [place] [id number] Technology Manager 09/19/22 documented as of this encounter
--- OUTSIDE RECORDS SUMMARY | 2024-07-12 19:43 | XMS_ITS | Encounter Summary ---
Author Organization [facility] Healthcare Address [address] [place] [address] Care Team Providers Care Threading Machine Tender Name Role Phone Servando Torre MD Primary Care Provider [phone] Mariela Denton MD Unavailable [phone] Lexis Barroso OD Unavailable [phone]- [phone] Encounter Details Date Type Department Care Team (Late st Contact Info) Description 07/24/2023 12:20 PM [facility] Lab [address] [address] Ulcerative colitis with complication, unspecified location (HCC); High risk medications (not anticoagulants) long-term use; Ulcerative pancolitis without complication (CMS/HCC) (HCC) Social [...] on file 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 Gender Identity Female 04/05/2022 6:17 PM CDT Sexual Orientation Straight 04/05/2022 6: 17 PM CDT documented as of this encounter Plan of Treatment Not on file documented as of this encounter Procedures Procedure Name Priority Date/Time Associated Diagnosis Comments THIOPURINE METABOLITES Routine 07/24/2023 12:36 PM SEAFOOD PREPARER Ulcerative colitis with complication, unspecified location (HCC) High risk medications (not anticoagulants) long-term use Ulcerative pancolitis without complication (CMS/HCC) (HCC) documented in this encounter Results * (ABNORMAL) Thiopurine metabolites (07/24/2023 12:36 PM SEAFOOD PREPARER) 6-TG, bld 214(L) 235 - 450 [facility] ([place]) Comment: Decreased possibility of response; suboptimal dosing or noncompliance. 6-MMP, bld 2241 < or = 5700 [facility] ([place]) Comment: Decreased risk of hepatotoxicity. ADDITIONAL INFORMATION Testing performed by Liquid Chromatography-Tandem Mass Spectrometry (LC-MS/MS) This test was developed and its performance characteristics determined by [facility] in a manner consistent with CLIA requirements. This test has not been cleared or approved by the U.S. Food and Drug Administration. Test Performed by: [facility] - [address] [address] Switch Operators Supervisor: Holden Redman M.D. Ph.D.; CLIA# [id number] Blood 07/24/2023 12:3 6 PM SEAFOOD PREPARER 07/24/2023 12:41 PM SEAFOOD PREPARER us Josué Cook MD LAB BLOOD ORDERABLES F inal Result [facility] ([place]) [address] [facility] Department [place] [address] documented in this encounter Visit Diagnoses Diagnosis Ulcerative colitis with complication, unspecified location (HCC) High risk medications (not anticoagulants) long-term use Encounter for long-term (current) use of other medications Ulcerative pancolitis without complication (CMS/HCC) (HCC) documented in this encounter Care Teams Threading Machine Tender Relationship Specialty Start Date End Date Servando Torre MD [address] [facility] [address] [place] [address] PCP - General Family Medicine 06/19/22 Mariela Denton MD [address] [facility] [address] [place] [address] Referring Physician Gastroenterology 06/19/22 Lexis Barroso OD [address] [place] [id number] Clinical Nutritionist 09/19/22 documented as of this encounter
--- OUTSIDE RECORDS SUMMARY | 2024-07-12 19:43 | XMS_ITS | Encounter Summary ---
Author Organization [facility] Healthcare Address [address] [place] [address] Care Team Providers Care Phone Specialist Name Role Phone Servando Torre MD Primary Care Provider [phone] Mariela Denton MD Unavailable [phone] Lexis Barroso OD Unavailable [phone]- [phone] Reason for Referral * Procedure (Routine) - Authorized Specialty Diagnoses / Procedures Referred By Contac t Referred To Contact Diagnoses Primary osteoarthritis of both knees Procedures Large Joint (Hip, Knee, Shoulder) Injection: bilateral knee Riri Gonzalez PA [address], [place] [address] Phone: tel: fax: [facility] Referral ID Status Reason Start Date Expiration Date V isits Requested Visits Authorized [id number] Authorized 10/21/2023 11/19/2024 1 1 Reason for Visit * Reason Comments Pain Pain Encounter Details Date Type Department Care Team (Late st Contact Info) Description 10/07/2023 9:00 AM CDT Office Visit [facility] Orthopedic and Sports Medicine [address] [place] [phone] Riri Gonzalez PA [address] [place] [address] Primary osteoarthritis of both knees (Primary Dx) Social History Tobacco Use Types [...] on file Legal Sex Female 9:30 AM [employer] Gender Identity Female 04/05/2022 6:17 PM CDT Sexual Orientation Straight 04/05/2022 6: 17 PM CDT documented as of this encounter Last Filed Vital Signs Vital Sign Reading Time Taken Comments Blood Pressure 178/76 10/07/2023 9:10 AM CDT Pulse 62 10/07/2023 9:10 AM CDT Temperature - - Respiratory Rate - - Oxygen Saturation - - Inhaled Oxygen Concentration - - Weight 67.9 kg (149 lb 9.6 oz) 10/07/2023 9:10 A M CDT Height 157.5 cm (5' 2 ) 10/07/2023 9:10 AM CDT Body Mass Index 27.36 10/07/2023 9:10 AM CDT documented in this encounter Progress Notes * Riri Gonzalez PA - 10/07/2023 9:00 AM CDTAssociated Order(s): Large Joint (Hip, Knee, Shoulder) Injection: bilateral knee Post-Procedure Diagnose(s): Primary osteoarthritis of both knees FOLLOW UP VISIT Subjective CHIEF COMPLAINT She had concerns including Pain of the Right Knee and Pain of the Left Knee. HISTORY OF PRESENT ILLNESS Patient here to follow up on her bilateral knee pain/OA At last visit, patient was diagnosed with bilateral knee osteoarthritis with severe advanced degenerative changes along the patellofemoral compartments. She would elected for conservative care plan including topical Voltaren/analgesics, and physical therapy through her assisted living. MEDICATIONS She has a current medication list which includes the following prescription(s): amlodipine, aspirin, buspirone, calcium citrate-vitamin d3, cholecalciferol, ferrous sulfate er, lamotrigine, losartan,magnesium carbonate, mesalamine, metformin xr, metoprolol tartrate, multivitamin, onetouch delica plus lancet, onetouch ultra test, pantoprazole dr, pravastatin, vedolizumab, acetaminophen, and azathioprine. REVIEW OF SYSTEMS Review of Systems Constitutional: Negative for chills, fatigue and fever. Respiratory: Negative for cough, chest tightness and shortness of breath. Musculoskeletal: Negative for arthralgias, gait problem, joint swelling and myalgias. Skin: Negative for rash and wound. Objective PHYSICAL EXAM BP (!) 178/76 Pulse 62 Ht 157.5 cm (5' 2 ) Wt 67.9 kg (149 lb 9.6 oz) BMI 27.36 kg/m?? Right knee Inspection The patient has normal inspection of the right knee. Gait: antalgic (walker) Palpation Tenderness: present. The tenderness is located in the patella and medial joint line. Crepitus: positive Patella grind: positive Range of motion The patient has reduced range of motion of the right knee. The patient has pain with range of motion of the right knee. Active extension: -5 Active flexion: 106-110 Stability ML stability: stable Strength Knee extension: 4/5 Knee flexion: 4/5 Hip abductor: 3/5 Neurovascular The patient has normal vascular on the right side of their body. The patient has normal sensation on the right side of their body. Left knee Inspection The patient has normal inspection of the left knee. Gait: antalgic (walker) Palpation Tenderness: present. The tenderness is located in the patella and medial joint line. Crepitus: positive Patella grind: positive Range of motion The patient has reduced range of motion of the left knee. The patient has pain with range of motion of the left knee. Active extension: -5 Active flexion: 106-110 Stability ML stability: stable Strength Knee extension: 4/5 Knee flexion: 4/5 Hip abductor: 3/5 Neurovascular The patient has normal vascular on the left side of their body. The patient has normal sensation on the left side of their body. REVIEW OF X-RAYS/STUDIES/LABS Assessment/Plan Lisa was seen today for pain and pain. Diagnoses and all orders for this visit: Primary osteoarthritis of both knees Other orders - Large Joint (Hip, Knee, Shoulder) Injection No orders of the defined types were placed in this encounter. Large Joint (Hip, Knee, Shoulder) Injection: bilateral knee Performed by: Riri Gonzalez PA Authorized by: Riri Gonzalez PA Large Joint Injection/Aspiration: Consent Given by: Patient Site marked: the procedure site was marked Timeout: prior to procedure the correct patient, procedure, and site was verified Verbal consent obtained: Yes Supporting Documentation: Indications: Pain Procedure Details: Location: Knee Site: Bilateral knee Prep: patient was prepped and draped in usual sterile fashion Needle Size: 22 G Approach: Anterolateral Ultrasound guided: No Fluroscopic guidance: No Medications Right Large Joint Injection: 2 mL lidocaine 20 mg/mL (2 %); 80 mg methylPREDNISolone acetate 80 mg/mL Medications Left Large Joint Injection: 2 mL lidocaine 20 mg/mL (2 %); 80 mg methylPREDNISolone acetate 80 mg/mL Patient tolerance: Patient tolerated the procedure well with no immediate complications PLAN Reviewed ongoing conservative management options. She elected to proceed with corticosteroid injections today. She tolerated well and post injection instructions provided. May continue with her physical therapy through his assisted-living facility. We will follow-up withus in 3 months if repeat injections are needed. All questions were answered. Patient expressed full understanding and agreement of plan. CHAMP Lombardo documented in this encounter Plan of Treatment Not on file documented as of this encounter Procedures Procedure Name Priority Date/Time Associated Diagnosis Comments LA ARTHROCENTESIS ASPIR&/INJ MAJOR JT/BURSA W/O US Routine 10/07/2023 9:00 AM CDT Primary osteoarthritis of both knees documented in this encounter Results * LA ARTHROCENTESIS ASPIR&/INJ MAJOR JT/BURSA W/O US (10/07/2023 9:00 AM CDT) Narrative Riri Gonzalez PA - 10/07/2023 9:00 AM CDT Riri Gonzalez PA ? 10/21/2023 ??9:41 AM Large Joint (Hip, Knee, Shoulder) Injection: bilateral knee Performed by: Riri Gonzalez PA Authorized by: Riri Gonzalez PA ?? Large Joint Injection/Aspiration: ??Consent Given by: ??Patient ??Site marked: the procedure site was marked ?Timeout: prior to procedure the correct patient, procedure, and site was verified ?Verbal consent obtained: Yes ?? Supporting Documentation: ??Indications: ??Pain Procedure Details: ??Location: ??Knee ??Site: ??Bilateral knee ??Prep: patient was prepped and draped in usual sterile fashion ?Needle Size: ??22 G ??Approach: ??Anterolateral ??Ultrasound guided: No ?Fluroscopic guidance: No ?Medications Right Large Joint Injection: ??2 mL lidocaine 20 mg/mL (2 %); 80 mg methylPREDNISolone acetate 80 mg/mL ??Medications Left ??Large Joint Injection: ??2 mL lidocaine 20 mg/mL (2 %); 80 mg methylPREDNISolone acetate 80 mg/mL ??Patient tolerance: ??Patient tolerated the procedure well with no immediate complications Riri [facility] Final Result documented in this encounter Visit Diagnoses Diagnosis Primary osteoarthritis of both knees- Primary documented in this encounter Administered Medications Inactive Administered Medications - up to 3 most recent administrations Medication Order MAR Action Action Date Dose Rate Site lidocaine (XYLOCAINE) 20 mg/mL (2 %) injection 2 mL 2 mL, One-Time Injection, Starting on Fri10/07/23 at 0900, For 1 dose, Indications: Administration of Local AnesthesiaIndications:Administratio n of Local Anesthesia Given 10/07/2023 9:00 AM CDT 2 mL lidocaine (XYLOCAINE) 20 mg/mL (2 %) injection 2 mL 2 mL, One-Time Injection, Starting on Fri10/07/23 at 0900, For 1 dose, Indications: Administration of Local AnesthesiaIndications:Administratio n of Local Anesthesia Given 10/07/2023 9:00 AM CDT 2 mL methylPREDNISolone acetate (DEPO-medrol) injection 80 mg 80 mg, intra-articular, One-Time Injection, Starting on Fri10/07/23 at 0900, For 1 doseIndications:Primary osteoarthritis of both knees Given 10/07/2023 9:00 AM CDT 80 mg methylPREDNISolone acetate (DEPO-medrol) injection 80 mg 80 mg, intra-articular, One-Time Injection, Starting on Fri10/07/23 at 0900, For 1 doseIndications:Primary osteoarthritis of both knees Given 10/07/2023 9:00 AM CDT 80 mg documented in this encounter Care Teams Phone Specialist Relationship Specialty Start Date End Date Servando Torre MD [address] [facility] [address] [place] [address] PCP - General Family Medicine 06/19/22 Mariela Denton MD [facility] [address] [place] [address] Referring Physician Gastroenterology 06/19/22 Lexis Barroso OD [address] [place] [id number] [place] 09/19/22 documented as of this encounter
--- OUTSIDE RECORDS SUMMARY | 2024-07-12 19:43 | XMS_ITS | Encounter Summary ---
Author Organization [facility] Healthcare Address [address] [place] [address] Care Team Providers Care Coutierier Name Role Phone Servando Torre MD Primary Care Provider [phone]- [phone] Mariela Denton MD Unavailable [phone] -[phone] Lexis Barroso OD Unavailable +1- [phone] Reason for Visit * Reason Comments Follow-up Event monitor Syncope Bradycardia Encounter Details Date Type Department Care Team (Latest Contact Info) Description 09/19/2023 11:30 AM SENIOR TAX ACCOUNTANT Office Visit [facility] Cardiology at [address] [place] [id number] Mesfin Rosenthal MD [address] [facility] [address] [place] [address] Hypertension associated with diabetes (HCC) (Primary Dx); Mixed diabetic hyperlipidemia associated with type 2 diabetes mellitus (HCC); Syncope, unspecified syncope type; Bradycardia; At risk for falls Social History Tobacco Use Types Packs/Day Years [...] points, staff should administer the PHQ-9) 0 08/07/2023 Personal Safety Answer Date Recorded Have you ever been in or are you currently in a harmful physical or emotional relationship or is someone making you feel afraid or unsafe? Denies 03/07/2023 Comments No Sex and Gender Information Value Date Recorded Sex Assigned at Not on file Legal Sex Female 9:30 AM SENIOR TAX ACCOUNTANT Gender Identity Female 04/05/2022 6:17 PM CDT Sexual Orientation Straight 04/05/2022 6: 17 PM CDT documented as of this encounter Last Filed Vital Signs Vital Sign Reading Time Taken Comments Blood Pressure 114/60 09/19/2023 11:33 AM SENIOR TAX ACCOUNTANT Pulse 62 09/19/2023 11:33 AM SENIOR TAX ACCOUNTANT Temperature - - Respiratory Rate - - Oxygen Saturation 96% 09/19/2023 11:33 AM SENIOR TAX ACCOUNTANT Inhaled Oxygen Concentration - - Weight 66.8 kg (147 lb 4.8 oz) 09/19/2023 11:33 AM SENIOR TAX ACCOUNTANT Height 157.5 cm (5' 2 ) 09/19/2023 11:33 AM SENIOR TAX ACCOUNTANT Body Mass Index 26.94 09/19/2023 11:33 AM SENIOR TAX ACCOUNTANT documented in this encounter Progress Notes * Mesfin Rosenthal MD - 09/19/2023 11:30 AM CST Images from the original note were not included. DATE OF VISIT: 09/19/2023 CHIEF COMPLAINT Chief Complaint Patient presents with Follow-up Event monitor 06/27/23 Syncope Bradycardia ASSESSMENT Diagnoses and all orders for this visit: Hypertension associated with diabetes (HCC) (Primary) Mixed diabetic hyperlipidemia associated with type 2 diabetes mellitus (HCC) Syncope, unspecified syncope type Bradycardia At risk for falls PLAN/RECOMMENDATIONS Possible syncope as reported from January 2023 without noted recurrence. Near- syncope or syncope subsequent. Patient seen managed for seizure disorder which is a likely contributor. quality assurance monitor body asdiscussed at length without significant tachy or bradyarrhythmia. Occasional PVCs and/or PACs noted. Patient is asymptomatic. Workup unremarkable thus far. We discussed that if no further events are noted or concerns arise in the interval it may be reasonable for her to follow up on an as-needed basis after her next visit if they are comfortable. BP better controlled, goal <130/80mmHg. Monitor BP on routine basis. Call with readings. Continue consistent cardiovascular exercise, weight loss, medication compliance, and low-sodium diet. -continue Metoprolol tartrate 50 mg twice daily, Amlodipine 5 mg daily. Losartan increased to 100 mg daily by PCP which she is tolerating well. Caution to avoid symptomatic hypotension. Ambulate withcaution. Lipids personally reviewed from 03/21/23 LDL 89, reasonably well controlled with goal LDL<70. Continue lifestyle modification. Continue Pravastatin 40mg qhs and routine lipid monitoring. DM managed by PCP continue metformin XR 750 mg daily. Follow up with Neurology as scheduled for management of seizure disorder. She remains on Lamictal 100 mg twice daily. Follow up with GI for management of ulcerative colitis on azathioprine, mesalamine, and Entyvio. Monitor for bleeding on aspirin. Ambulate with extreme caution to avoid risk for falls and injuries. Patient has been restricted from driving per neurologic perspective due to seizures. Defer to Neurology in this regard. Over 50% of this visit counseling possible syncope, HTN, lipids, medications, lifestyle modification. Follow up in the office in 1 year or sooner as needed. Thank you for allowing me the privilege of participating in the care this very pleasant patient. Please do not hesitate to contact me with any additional questions or concerns. ISSAC Allen is a 78 y.o. female with a PMHx of DM, Ulcerative Colitis, HTN, hyperlipidemia, epilepsy, vascular dementia seen in very kind referral by Servando Torre MD for my opinion regarding possible syncope. 06/27/23 Initial visit: On 01/30/23 while in [place] during family reunion had a seizure at [address] elevation dx with suspected seizure in [place]. Brain MRI some spot noted unclear etiology but no acute CVA. Daughter foundher unresponsive top of stairs when she came out of the bathroom on ground daughter says her lips were blue she was flaccid and unresponsive, not breathing unsure if pulse as she panicked but then she started CPR. After 4 min of CPR she started to move on her own with labored irregular breathing. Has seen Neurology and she was diagnosed with Epilepsy. She had an event Jun 03 event unsure if CVA or seizure found she had a UTI. On March 07 she had 4 seizures 2 before EEG then 2 after but none du ring. She has spells where she stares off unresponsive then regains awareness, word jumble and confused then clears she does not recall events and foggy rest of the day. She was then started on Lamictal. 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 Pt recalls last thing sitting on top of steps and was waiting for her sister then has no further recall. She was found lying back arms out. She had not had any other spells like initiallynoted. She had Echo in [place] and at [facility]. No mention or issues of sig arrhythmias 09/19/[address] new place in Jul. Hit head had goose egg had full eval CT head no issues. Feeling ok no syncope no dizziness or CP or palps. No SOB. Wore monitor. 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 She has never been exposed to tobacco smoke. She has never used smokeless tobacco. She reports that she does not use drugs. Patient denies consuming alcoholic drinks. FAMILY HISTORY family history includes Alzheimer's disease (age of onset: 70) in her father; Atrial fibrillation in her mother; Breast cancer in her mother; Cancer in her father; Stroke in her mother; afib in her mother. MEDICATIONS HOME MEDICATIONS : acetaminophen (acetaminophen Extra Strength) 500 mg tablet amLODIPine (NORVASC) 5 mg tablet aspirin 81 mg enteric coated tablet azaTHIOprine (IMURAN) 50 mg tablet busPIRone (BUSPAR) 5 mg tablet calcium citrate-vitamin D3 (Citracal + D Maximum) 315 mg-6.25 mcg (250 unit) per tablet cholecalciferol (VITAMIN D-3) 2000 unit tablet ferrous sulfate ER 324 mg (65 mg iron) EC tablet lamoTRIgine (LaMICtal) 100 mg tablet losartan (COZAAR) 100 mg tablet magnesium carbonate (MAGONATE) liquid (54 mg of elemental magnesium/5 mL) mesalamine (APRISO) 0.375 gram 24 hr capsule metFORMIN XR (GLUCOPHAGE XR) 750 mg 24 hr tablet metoprolol tartrate (LOPRESSOR) 50 mg immediate release tablet multivitamin capsule OneTouch Delica Plus Lancet 33 gauge [facility] OneTouch Ultra Test strip pantoprazole DR (PROTONIX) 40 mg EC tablet pravastatin (PRAVACHOL) 40 mg tablet vedolizumab (ENTYVIO) 300 mg recon soln benzonatate (TESSALON) 100 mg capsule ALLERGIES Allergies Allergen Reactions Penicillins Hives She thinks as an adult but is unsure REVIEW OF SYSTEMS Review of Systems Constitutional: Negative for decreased appetite, diaphoresis, fever, malaise/fatigue and night sweats. HENT: Negative for hearing loss and nosebleeds. Eyes: Negative for blurred vision and pain. Cardiovascular: Negative for chest pain, claudication, dyspnea on exertion, irregular heartbeat, leg swelling, near-syncope, orthopnea, palpitations and syncope. Respiratory: Negative for cough, hemoptysis, shortness of breath, snoring and wheezing. Endocrine: Negative for cold intolerance and heat intolerance. Hematologic/Lymphatic: Negative for bleeding problem. Does not bruise/bleed easily. Skin: Negative for color change, itching, rash and suspicious lesions. Musculoskeletal: Positive for joint pain. Negative for falls, muscle weakness and myalgias. Gastrointestinal: Negative for abdominal pain, heartburn, hematemesis, melena and nausea. Genitourinary: Negative for dysuria, hematuria and nocturia. Neurological: Positive for seizures. Negative for excessive daytime sleepiness, dizziness, focal weakness, headaches, light-headedness, loss of balance and weakness. Psychiatric/Behavioral: Positive for memory loss. Negative for altered mental status and depression. The patient is not nervous/anxious. Allergic/Immunologic: Negative for environmental allergies. All other systems reviewed and are negative. PHYSICAL EXAM Vitals BP 114/60 (BP Location: Right arm, Patient Position: Sitting) Pulse 62 Ht 157.5 cm (5' 2 ) Wt 66.8 kg (147 lb 4.8 oz) SpO2 96% BMI 26.94 kg/m?? Weight: 66.8 kg (147 lb 4.8 oz) Height: 157.5 cm (5' 2 ) Body mass index is 26.94 kg/m??. Physical Exam Vitals reviewed. Constitutional: General: She is not in acute distress. Appearance: Normal appearance. She is well-developed. She is not diaphoretic. HENT: Head: Normocephalic and atraumatic. Right Ear: External ear normal. Left Ear: External ear normal. Nose: Nose normal. Mouth/Throat: Mouth: Mucous membranes are moist. Dentition: Normal dentition. Eyes: General: Lids are normal. No scleral icterus. Extraocular Movements: Extraocular movements intact. Conjunctiva/sclera: Conjunctivae normal. Neck: Thyroid: No thyromegaly. Vascular: Normal carotid pulses. No carotid bruit, hepatojugular reflux or JVD. Trachea: No tracheal deviation. Cardiovascular: Rate and Rhythm: Normal rate and regular rhythm. Pulses: Normal pulses and intact distal pulses. No decreased pulses. Heart sounds: S1 normal and S2 normal. Heart sounds not distant. Murmur heard. Medium-pitched early systolic murmur is present with a grade of 3/6. No friction rub. No gallop. No S3 or S4 sounds. Pulmonary: Effort: Pulmonary effort is normal. No respiratory distress. Breath sounds: Normal breath sounds. No wheezing or rales. Chest: Chest wall: No tenderness. Abdominal: General: Bowel sounds are normal. There is no distension. Palpations: Abdomen is soft. There is no mass. Tenderness: There is no abdominal tenderness. There is no guarding or rebound. Musculoskeletal: General: No tenderness or deformity. Normal range of motion. Cervical back: Normal range of motion and neck supple. Right lower leg: No edema. Left lower leg: No edema. Comments: Using a walker Lymphadenopathy: Cervical: No cervical adenopathy. Skin: General: Skin is warm and dry. Coloration: Skin is not pale. Findings: No ecchymosis, erythema, petechiae or rash. Nails: There is no clubbing. Neurological: General: No focal deficit present. Mental Status: She is alert and oriented to person, place, and time. Mental status is at baseline. Cranial Nerves: No cranial nerve deficit. Motor: No abnormal muscle tone. Coordination: Coordination normal. Psychiatric: Mood and Affect: Mood normal. Speech: Speech normal. Behavior: Behavior normal. Behavior is cooperative. Thought Content: Thought content normal. Judgment: Judgment normal. LABS AND OTHER DIAGNOSTIC TESTS Lab Results Component Value Date CHOL 181 03/21/2023 HDL 54 03/21/2023 LDLCALC 89 03/21/2023 CHOLHDL 3 03/21/2023 TRIG 191 (H) 03/21/2023 SODIUM 141 03/21/2023 POTASSIUM 3.9 03/21/2023 CO2 29 03/21/2023 BUNSER 12 03/21/2023 GLUCOSE 130 03/21/2023 CREATININE 0.79 03/21/2023 CALCIUM 9.7 03/21/2023 CHLORIDE 102 03/21/2023 ALBUMIN 4.2 03/21/2023 ALT 62 (H) 03/21/2023 AST 46 (H) 03/21/2023 ALKPHOS 84 03/21/2023 BILITOT 0.3 03/21/2023 PROT 6.9 03/21/2023 WBC 7.0 03/21/2023 HGB 13.6 03/21/2023 NPROBNP 378 02/07/2023 Results for orders placed or performed in visit on 07/24/23 Thiopurine metabolites Result Value Ref Range 6-TG, bld 214 (L) 235 - 450 6-MMP, bld 2241 < or = 5700 Care everywhere records review outside medical facility out of state: 01/31/2023 2D echo: Normal left ventricular size, wall thickness and systolic function. Ejection fraction visually estimated 60 -65%. Normal right ventricular size and systolic function. No evidence of pulmonary hypertension. The left atrium is moderately enlarged. Mild mitral regurgitation. Mild tricuspid regurgitation. RVSP estimated at 27 mmHg. 02/01/2023 CT chest with contrast: HISTORY: Trauma. TECHNIQUE: CT chest with intravenous contrast. One of the following dose optimization techniques was utilized in the performance of this exam: Automated exposure control; adjustment of the mA and/or kV according to the patient's size; or use of an iterative reconstruction technique. Specific details can be referenced in the facility's radiologyCT exam operational policy. COMPARISON: 01/30/2023. FINDINGS: Lungs: Stable 4 mm right upper lobe nodule (6-59). Right greater than left basilar atelectasis. Stable 3 mm right upper lobe nodule (6-34). Very mild interlobular septal thickening. Poor inspiratory effort with collapse of the trachea and bronchi diffusely. Pleura: Trace right greater than left pleural effusions. Airways: Within normal limits Heart/vessels: Cardiomegaly. Mediastinum/nodes: Within normal limits Lower Neck/Chest Wall: Calcified left thyroid nodule. This can be further evaluated with nonemergent outpatient thyroid ultrasound if indicated. Visualized upper abdomen: Cystic appearing left liver lesion. Bones/soft tissues: Acute fracture of the right 2nd-7th ribs. The third and fifth ribs are fractured in 2 places. Acute appearing fractures of the left 3rd- 6th ribs. Multiple more chronic-appearing left rib deformities. Multilevel degenerative changes of the spine. IMPRESSION: Multiple rib fractures bilaterally as described. Cardiomegaly with bilateral pleural effusions and atelectasis. DICTATED BY: Martha Rowland Date: 02/01/2023 12:03 MT 01/31/2023 HISTORY: Seizure, nontraumatic (Age >= 41y) COMPARISON: CT head and CT angiogram head and neck 01/30/2023. TECHNIQUE: Multiplanar multi sequential imaging of the brain obtained with and without IV gadolinium. FINDINGS: BRAIN: On susceptibility weighted imaging there are multiple areas of punctate chronic hemorrhage noted in the right and left thalami and right and left cerebellum without T2 or FLAIR signal abnormality. There is a more confluent focus of chronic hemorrhage noted in the left aspect of the splenium of the corpus callosum with some T2 and FLAIR signal abnormality noted on image 35 of series 10. There is some adjacent susceptibility artifact manifest on the diffusion-weighted imaging. There is age-appropriate atrophy with increased T2 and FLAIR signal in the periventricular and subcortical white matter consistent with chronic small vessel ischemic change. No restricted diffusion, no acute hematoma, no hydrocephalus, no mass effect or midline shift, no abnormal extra-axial collection, intracranial arterial flow voids are patent. BONES AND EXTRACRANIAL SOFT TISSUES: The orbits are unremarkable. The paranasal sinuses and mastoidair cells are clear. No gross bone lesion is identified. IMPRESSION: Chronic hemorrhage with some encephalomalacia and gliosis noted in the left aspect of the splenium of the corpus callosum, question previous brain parenchymal hemorrhage or hemorrhagic infarction in this distribution. Additional areas of punctate chronic microhemorrhage are noted suggesting history of hypertension or coagulopathy. Age-appropriate atrophy and chronic ischemic changes. No acute intracranial abnormality is identified. DICTATED BY: LULU EASTMAN Date: 01/31/2023 16:38 MT 03/08/2023 CT head: Narrative & Impression Pt has been having N/V on and off today. Pt also has been having dizziness today. Pt had an EEG done today because she has been having confusion since 01/30. Pt had a seizure back in January with no josh. TECHNIQUE: Axial images acquired through the brain without intravenous contrast. Coronal and sagittal reformats were performed. Images stored on PACS. Automated mA/kV exposure control was used as a dose optimization technique for this examination and patient examination was performed in strict accordance with principles of ALARA. COMPARISON: Head CT of February 12, 2023. FINDINGS: BRAIN: There is no midline shift, mass or mass effect. The ventricles, cisterns and sulci are globally and proportionally prominent consistent with atrophy. There is normal differentiation of the kennedy-white matter. There is no intracranial hemorrhage. There is decreased attenuation in the periventricular white matter, nonspecific, but likely related to small vessel ischemic change. There is no significant change as compared to previous study. EXTRA-AXIAL SPACES: No fluid collections. No masses. CALVARIUM: No fracture. SINUSES/MASTOIDS: No fluid or mucosal thickening. ORBITS: No significant abnormality. OTHER: No other significant abnormality. IMPRESSION: No acute intracranial abnormality. Global atrophy and white matter changes consistent with small-vessel ischemic disease. 08/01/23 AMBULATORY TECHNICAL SUPPORT AGENT REPORT Type of monitor : 30 day property assessment monitor Date of the study/Enrollment period: June 27, 2023 to July 26, 2023 Indication: bradycardia Quality of the study: acceptable Interpretation: Underlying rhythm is sinus with an average heart rate of 69 beats per minute with a minimum 51 beats per minute and a maximum 116 beats per minute. Infrequent premature ventricular contractions totaling 5456 which is less than 1% burden and infrequent premature atrial contractions totaling 4118 which is less than 1% burden noted. No atrial fibrillation, atrial flutter, prolonged pauses or high-grade AV blocks. Two symptom diary entries reported. On June 28 at 10:51 a.m. patient complained of shortness of breath associated with sinus rhythm heart rate 75 beats per minute during light activity. On June 30 at 4:18 p.m. patient complained of shortness of breath associated with sinus rhythm heart rate 86 beats per minute during light activity. No sustained or nonsustained ventricular tachycardia. Conclusions: Underlying sinus rhythm with infrequent PVCs and PACs. No atrial fibrillation, atrial flutter, prolonged pauses or high-grade AV blocks. Symptoms correspond with sinus rhythm without ectopy. I have personally reviewed and analyzed EKG, electronic medical record, and bloodwork/lipids. Dania Rosenthal MD, [facility] This note is dictated and transcribed using [employer] Software. Lumber Sales Supervisor variancesmay occur. Despite proofreading, typographical errors may occur. OR TAX ACCOUNTANT documented in this encounter Plan of Treatment Not on file documented as of this encounter Visit Diagnoses Diagnosis Hypertension associated with diabetes (HCC)- Primary Unspecified essential hypertension Mixed diabetic hyperlipidemia associated with type 2 diabetes mellitus (HCC) Syncope, unspecified syncope type Bradycardia Other specified cardiac dysrhythmias At risk for falls Personal history of fall documented in this encounter Care Teams Coutierier Relationship Specialty Start Date End Date Servando Torre MD [facility] [address] PCP - General Family Medicine 06/19/22 Mariela Denton MD [address] [place] [address] Referring Physician Gastroenterology 06/19/22 Lexis Barroso OD [address] [place] [id number] Fire Watcher 09/19/22 documented as of this encounter
--- OUTSIDE RECORDS SUMMARY | 2024-07-12 19:43 | XMS_ITS | Encounter Summary ---
Author Organization [facility] Healthcare Address [address] [place] [address] Care Team Providers Care Public Transportation Inspector Name Role Phone Servando Torre MD Primary Care Provider [phone]- [phone] Mariela Denton MD Unavailable [phone] [phone] Lexis Barroso OD Unavailable [phone]- [phone] Encounter Details Date Type Department Care Team (Late st Contact Info) Description 09/30/2023 2:00 PM BUSINESS DEVELOPMENT SALES EXECUTIVE Lab [facility] Medical Group Outpatient Lab at [address] [id number] Diabetes mellitus (HCC) (Primary Dx); Mixed diabetic hyperlipidemia associated [...] file Legal Sex Female 9:30 AM BUSINESS DEVELOPMENT SALES EXECUTIVE Gender Identity Female 04/05/2022 6:17 PM CDT Sexual Orientation Straight 04/05/2022 6: 17 PM CDT documented as of this encounter Plan of Treatment Not on file documented as of this encounter Visit Diagnoses Diagnosis Diabetes mellitus (HCC)- Primary Type II or unspecified type diabetes mellitus without mention of complication, not stated as uncontrolled Mixed diabetic hyperlipidemia associated with type 2 diabetes mellitus (HCC) documented in this encounter Care Teams Public Transportation Inspector Relationship Specialty Start Date End Date Servando Torre MD [address] [address] PCP - General Family Medicine 06/19/22 Mariela Denton MD [address] [place] [address] Referring Physician Gastroenterology 06/19/22 Lexis Barroso OD [address] [place] [id number] Nurse Office 09/19/22 documented as of this encounter
--- OUTSIDE RECORDS SUMMARY | 2024-07-12 19:43 | XMS_ITS | Encounter Summary ---
Author Organization [facility] Healthcare Address [address] [place] [address] Care Team Providers Care Mold Tooler Name Role Phone Servando Torre MD Primary Care Provider [phone]- [phone] Mariela Denton MD Unavailable +1 -[phone] Lexis Barroso OD Unavailable +1- [phone] Encounter Details Date Type Department Care Team (Latest Contact Info) Description 08/28/2023 11:00 AM FAN BLADE TRUER Ancillary Procedure [facility] Imaging at [address] [address] Chronic pain of both knees Social History Tobacco Use Types Packs/Day Years [...] on file Legal Sex Female 9:30 AM FAN BLADE TRUER Gender Identity Female 04/05/2022 6:17 PM CDT Sexual Orientation Straight 04/05/2022 6: 17 PM CDT documented as of this encounter Plan of Treatment Not on file documented as of this encounter Procedures Procedure Name Priority Date/Time Associated Diagnosis Comments XR KNEE BILATERAL 4 OR MORE VIEWS Schedule Routine, Read Routine (OP Routine) 08/28/2023 11:01 AM FAN BLADE TRUER Chronic pain of both knees documented in this encounter Results * XR Knee Bilateral 4 or More Views (08/28/2023 11:01 AM FAN BLADE TRUER) Anatomical Region Laterality Modality Lower Extremities, Knee Digital Radiography Narrative 08/28/2023 1:05 PM FAN BLADE TRUER Weightbearing views of the bilateral knee are reviewed and demonstrate no acute fractures or destructive osseous lesions. ??Tricompartmental degenerative changes present with joint space narrowing, osteophyte formation, and subchondral sclerosis. ??Findings severe within the patellofemoral compartment with thinning of the lateral patella facet and associated dysplastic changes of the lateral femoral condyle [facility] IMG XR PROCEDURES Final Result documented in this encounter Visit Diagnoses Diagnosis Chronic pain of both knees documented in this encounter Care Teams Mold Tooler Relationship Specialty Start Date End Date Servando Torre MD [address] [facility] [address] [place] [address] PCP - General Family Medicine 06/19/22 Mariela Denton MD [address] [place] [address] Referring Physician Gastroenterology 06/19/22 Lexis Barroso OD [address], [place] [address] Occupational Health Coordinator 09/19/22 documented as of this encounter
--- OUTSIDE RECORDS SUMMARY | 2024-07-12 19:43 | XMS_ITS | Encounter Summary ---
Author Organization [facility] Address [address] [place] [address] Phone Care Team Providers Care Portainer Operator Name Role Phone Servando Torre MD Primary Care Provider [phone] Mariela Denton MD Unavailable [phone] Lexis Barroso OD Unavailable [phone]- [phone] Reason for Visit * Reason Onset Date Comments Plan from [facility] on 05/16/23 05/28/2023 Encounter Details Date Type Department Care Team (Late st Contact Info) Description 05/28/[address] 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 Plan as follows: Overall doing well but has some loose stools despite remission on November. Asked that she speak to PCP about metformin ER. Her LFTs were up a little with last labs. Please can we get metabolites drawn with May infusion?(Janice placed order for metabolites to be drawn with inf on 06/10/23 and faxed to infusion team) Will follow with Anas (scheduled for 10/29/23) documented in this encounter Plan of Treatment Not on file documented as of this encounter Visit Diagnoses Not on filedocumented in this encounter Care Teams Portainer Operator Relationship Specialty Start Date End Date Servando Torre MD [address] [address] PCP - General Family Medicine 06/19/22 Mariela Denton MD [address] [place] [address] Referring Physician Gastroenterology 06/19/22 Lexis Barroso OD [address], [place] [address] Esthetician/Owner 09/19/22 documented as of this encounter
--- OUTSIDE RECORDS SUMMARY | 2024-07-12 19:43 | XMS_ITS | Encounter Summary ---
Author Organization [facility] Healthcare Address [address] [place] [address] Care Team Providers Care General Production Manager Name Role Phone Servando Torre MD Primary Care Provider [phone]- [phone] Mariela Denton MD Unavailable [phone] [phone] Lexis Barroso OD Unavailable [phone]- [phone] Encounter Details Date Type Department Care Team (Late st Contact Info) Description 07/01/2023 3:15 PM HEALTH SERVICES MANAGER Lab [facility] Medical Group Outpatient Lab at [address] [address] Social History Tobacco Use Types [...] on file Legal Sex Female 9:30 AM HEALTH SERVICES MANAGER Gender Identity Female 04/05/2022 6:17 PM CDT Sexual Orientation Straight 04/05/2022 6: 17 PM CDT documented as of this encounter Plan of Treatment Not on file documented as of this encounter Visit Diagnoses Not on filedocumented in this encounter Care Teams General Production Manager Relationship Specialty Start Date End Date Servando Torre MD [address] [facility] [address] [place] [address] PCP - General Family Medicine 06/19/22 Mariela Denton MD [address] [place] [address] Referring Physician Gastroenterology 06/19/22 Lexis Barroso OD [address] [place] [address] Truck Spotter 09/19/22 documented as of this encounter
--- OUTSIDE RECORDS SUMMARY | 2024-07-12 19:43 | XMS_ITS | Encounter Summary ---
Author Organization [facility] Address [address] [place] [address] Care Team Providers Care Mail List Processor Name Role Phone Servando Torre MD Primary Care Provider [phone]- [phone] Mariela Denton MD Unavailable [phone] -[phone] Lexis Barroso OD Unavailable [phone]- [phone] Reason for Referral * Consultation (Routine) - Closed Specialty Diagnoses / Procedures Referred By Contclemencia t Referred To Contact Orthopedic Surgery Diagnoses Knee joint cyst, right Olga Hernandez NP Phone: tel: fax: Tierney Mcdaniel MD [address] [place] [address] Phone: tel: Referral ID Status Reason Start Date Expiration Date V isits Requested Visits Authorized [id number] Closed Specialty Services Required 01/21/2024 02/19/2025 1 1 Question Answer Please select the performing region: [facility] [[id number]] Please select the performing department: [facility] [[id number]] To provider: TIERNEY MCDANIEL [[id number]] # of visits: 1 Encounter Details Date Type Department Care Team (Late st Contact Info) Description 01/21/2024 Orders Only [facility] Primary Care at [address] [address] Olga Hernandez NP [address] [place] [address] Knee joint cyst, right (Primary Dx) Social History Tobacco Use Types [...] on file Legal Sex Female 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 Gender Identity Female 04/05/2022 6:17 PM CDT Sexual Orientation Straight 04/05/2022 6: 17 PM CDT documented as of this encounter Plan of Treatment Scheduled Referrals Name Type Priority Associated Diagnoses Order Schedule Ambulatory referral to Orthopedic Surgery Outpatient Referral Routine Knee joint cyst, right Expected: 02/04/2024 (Approximate), Expires: 01/20/2025 documented as of this encounter Visit Diagnoses Diagnosis Knee joint cyst, right- Primary documented in this encounter Care Teams Mail List Processor Relationship Specialty Start Date End Date Servando Torre MD [address] [place] [address] PCP - General Family Medicine 06/19/22 Mariela Denton MD [address] [place] [address] Referring Physician Gastroenterology 06/19/22 Lexis Barroso OD [address] [place] [address] Steel Checker 09/19/22 documented as of this encounter
--- OUTSIDE RECORDS SUMMARY | 2024-07-12 19:43 | XMS_ITS | Encounter Summary ---
Author Organization [facility] Address [address] [place] [address] Phone Care Team Providers Care Electric Utility Lineworker Name Role Phone Servando Torre MD Primary Care Provider [phone] Mariela Denton MD Unavailable [phone] Lexis Barroso OD Unavailable [phone]- [phone] Reason for Referral * MRI/CAT/PET Scan (Routine) - Closed Specialty Diagnoses / Procedures Referred By Angel braswell Referred To Contact Radiology Diagnoses Seizure (HCC) Procedures MRI Brain WO Contrast Adria Burleson MD [address] [facility] [address] [place] [address] Phone: tel: fax: [address] [address] Referral ID Status Reason Start Date Expiration Date Visits Re quested Visits Authorized [id number] Closed 06/24/2023 07/23/2024 1 1 ON PINION ADJUSTER Encounter Details Date Type Department Care Team (Late st Contact Info) Description 06/24/2023 1:30 PM CANNON PINION ADJUSTER Office Visit [facility] Epilepsy [address] [facility] [address] [place] [address] [place] [address] Adria Burleson MD [address] [facility] [address] [place] [address] Seizure (HCC) (Primary Dx) Social History Tobacco Use [...] points, staff should administer the PHQ-9) 0 06/11/2023 Personal Safety Answer Date Recorded Have you ever been in or are you currently in a harmful physical or emotional relationship or is someone making you feel afraid or unsafe? Denies 03/07/2023 Comments No Sex and Gender Information Value Date Recorded Sex Assigned at Not on file Legal Sex Female 9:30 AM CANNON PINION ADJUSTER Gender Identity Female 04/05/2022 6:17 PM CDT Sexual Orientation Straight 04/05/2022 6: 17 PM CDT documented as of this encounter Last Filed Vital Signs Vital Sign Reading Time Taken Comments Blood Pressure 176/84 06/24/2023 1:37 PM CANNON PINION ADJUSTER Pulse 66 06/24/2023 1:37 PM CANNON PINION ADJUSTER Temperature - - Respiratory Rate - - Oxygen Saturation - - Inhaled Oxygen Concentration - - Weight 65.8 kg (145 lb) 06/24/2023 1:37 PM CANNON PINION ADJUSTER Height 157.5 cm (5' 2 ) 06/24/2023 1:37 PM CANNON PINION ADJUSTER Body Mass Index 26.52 06/24/2023 1:37 PM CANNON PINION ADJUSTER documented in this encounter Ordered Prescriptions Prescription Sig Dispense Quantity Refills Last Filled Start Date End Date lamoTRIgine (LaMICtal) 100 mg tablet Take 1 tablet (100 mg total) by mouth 2 (two) times a day 180 tablet 1 06/24/2023 01/12/2024 documented in this encounter Progress Notes * Adria Burleson MD - 06/24/2023 1:30 PM CST Patient Name: RADHA ALLEN Date of (): 1945 Encounter Date: 06/24/2023 PCP: Servando Torre MD Provider: Raj Cedillo MD Chief complaint: seizure Interval history: -One additional seizure in the setting of cross tapering Keppra for LTG (06/13/2023) - described asinability to talk, confusion, nausea -- sent to ED found to have UTI. Imaging done, per report no stroke but cannot rule out TIA -No additional seizures thereafter -Tolerating LTG 100 mg bid without issues -No other complaints -Memory deficits persist 78 y.o. 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 OSH MRI showed L splenium of CC chronic hemorrhage /encephalomalacia/gliosis and scattered microhemorrhages and generalized atrophy. [facility] EEG showed right frontotemporal epileptiform discharges and slowing. Prior history from last visit: Fall while in [place]30[place]20[place] for a family reunion Had gone upstairs to use the bathroom She was found sitting on the stairs She either stood up and fell back or fell back from sitting position She was found on the floor unresponsive with generalized mild trembling, eyes rolled back, pale, and her lips were blue Pulse was not checked, daughter did CPR regardless Unresponsiveness lasted for about ~20 minutes She had confusion for about ~5 days, progressively improved but still not back to her prior baseline per family report Brain MRI is below, no acute findings No EEGs were done No ASMs were started No clear head injury associated with the seizure Since discharge She has not had additional spells However she's still confused (not recognizing family members by correct name/relationship, executive dysfunctioning and issues remembering tasks) - mostly in the evening/night, often fluctuating fashion ROS+ potential memory issues prior to this event, however family had noticed cognitive difficultiesprior (pt lives by herself, mostly independent in ADLs and IADLs - details are below) No h/o cardiac issues, tremor PMH: GERD, HLD, HTN, detached retina, UC, DM. PSH: L partial hip replacement / plate, OD retinal detachment procedure, D&C many years ago. SH: lives alone (since event, granddaughter is staying with her), independent with ADLs, requires help with finances over the last month (before the event in [place]). 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 Driving: no (was driving prior to seizure). 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 No acute intracranial abnormality is identified. -EEG at [facility] on 03/07/2023: This is an abnormal awake and stage I and II sleep extended EEG due to 1)occasional, right frontotemporal, poorly formed epileptiform discharges and 2) intermittent right temporal slowing. -Bone density/DEXA scan 12/12/2022: Bone mineral density shows evidence of low bone mass at the lumbar spine and proximal femur and moderately increased fracture risk (osteopenia) Current ASMs: -LTG 100 mg bid Prior ASMs: -Keppra (mood issues) ----- Physical Exam Vital Signs Vitals: 06/24/23 1337 BP: (!) 176/84 BP Location: Left arm Patient Position: Sitting Pulse: 66 Weight: 65.8 kg (145 lb) Height: 157.5 cm (5' 2 ) General: Calm and cooperative, no acute distress, accompanied by daughter and granddaughter Neuro: Mental status: Alert, oriented to self and place, not time. Repeating same questions during interview. No overt language issues. No dysarthria. Follows simple commands. Cranial nerves: PERRL, OD (retinal detachment) cannot count fingers (can see lights and shapes) and pupil 1-2 mm nonreactive, EOMI, facial sensation intact to LT, face symmetric, hearing intact to voice, palate symmetric, uvula midline. SCM and traps full [...] Gait: Walks with walker. 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 OSH MRI showed L splenium of CC chronic hemorrhage/encephalomalacia/gliosis and scattered microhemorrhages and generalized atrophy. [facility] EEG showed right fr ontotemporal epileptiform discharges and slowing. Keppra dc'ed due to agitations and sleepiness, tolerating LTG well without issues. No seizure recurrence except for 1 breakthrough seizure ISO UTI and Keppra/LTG cross-taper (05/2023). Recs: -Continue LTG 100 mg bid --Monitor for toxicity / side effects -Seizure precautions -MRI brain (epilepsy protocol) [re-ordered] -Continue to follow with Dr. Nicolas / memory clinic -Continue to follow with cardiology All questions answered. RTC in 6 months. Adria Anthony Seizure precautions including no driving for at least 6 months after last seizure, heights, swimming or bathing alone, operating heavy machinery or other activities during which a seizure would endanger her or others were discussed. My total encounter time on 06/24/2023 was 30 minutes which was spent in the activities documented in the note. This includes time spent prior to the visit and after the visit in direct care of the patient. This time does not include time spent in any separately reportable services. ON PINION ADJUSTER documented in this encounter Plan of Treatment Not on file documented as of this encounter Results * MRI Brain WO Contrast (07/11/2023 2:40 PM CANNON PINION ADJUSTER) Anatomical Region Laterality Modality Head and Neck N/A Magnetic Resonan ce 07/11/2023 3:40 PM CANNON PINION ADJUSTER Impressions 07/11/2023 4:17 PM CANNON PINION ADJUSTER No MRI evidence to explain the patient's seizures. Dictated by: Marcell Cerna MD The radiology attending physician has personally reviewed this study, and had reviewed and/or edited this written report and agrees with it. Electronically signed by: Tino Rodriguez M.D. Ph.D. Narrative 07/11/2023 4:17 PM CANNON PINION ADJUSTER EXAMINATION: Magnetic resonance imaging (MRI) of the brain and brainstem without contrast HISTORY: 78-year-old woman with newly diagnosed focal epilepsy and findings in the right frontotemporal region on EEG. TECHNIQUE: Multiplanar multi-weighted MRI of the brain and brainstem was performed without intravenous contrast using the seizure protocol. This included high resolution 3D T1-weighted and T2-FLAIR imaging and detailed T2-weighted imaging of the hippocampi and temporal lobes COMPARISON: Brain MRI dated 01/31/2023 FINDINGS: Confluent T2/flair hyperintensities in the periventricular and deep white matter of both frontal lobes consistent with chronic small vessel disease. ??Susceptibility within the right frontal lobe, both thalami, and both cerebellar hemispheres consistent with microhemorrhages. ??Mild diffuse cerebral volume loss with associated ex vacuo dilatation of the ventricles. The scalp and calvarium are normal. The superior sagittal sinus demonstrates normal venous flow. The corpus callosum is normal in shape and signal intensity. The pituitary and sella are normal. The brainstem and craniocervical junction are unremarkable. Diffusion weighted images reveal no hyperintensities to suggest acute cerebral infarction.Bilateral choroid plexus xanthogranulomas. The paranasal sinuses are normal. The visualized portions of the mastoids are unremarkable. Patient is status post right lens replacement. Normal flow voids are demonstrated in the carotid arteries and basilar artery. Procedure Note Tino Rodriguez MD PhD - 07/11/2023 EXAMINATION: Magnetic resonance imaging (MRI) of the brain and brainstem without contrast HISTORY: 78-year-old woman with newly diagnosed focal epilepsy and findings in the right frontotemporal region on EEG. TECHNIQUE: Multiplanar multi-weighted MRI of the brain and brainstem was performed without intravenous contrast using the seizure protocol. This included high resolution 3D T1-weighted and T2-FLAIR imaging and detailed T2-weighted imaging of the hippocampi and temporal lobes COMPARISON: Brain MRI dated 01/31/2023 FINDINGS: Confluent T2/flair hyperintensities in the periventricular and deep white matter of both frontal lobes consistent with chronic small vessel disease. Susceptibility within the right frontal lobe, both thalami, and both cerebellar hemispheres consistent with microhemorrhages. Mild diffuse cerebral volume loss with associated ex vacuo dilatation of the ventricles. The scalp and calvarium are normal. The superior sagittal sinus demonstrates normal venous flow. The corpus callosum is normal in shape and signal intensity. The pituitary and sella are normal. The brainstem and craniocervical junction are unremarkable. Diffusion weighted images reveal no hyperintensities to suggest acute cerebral infarction.Bilateral choroid plexus xanthogranulomas. The paranasal sinuses are normal. The visualized portions of the mastoids are unremarkable. Patient is status post right lens replacement. Normal flow voids are demonstrated in the carotid arteries and basilar artery. IMPRESSION: No MRI evidence to explain the patient's seizures. Dictated by: Marcell Cerna MD The radiology attending physician has personally reviewed this study, and had reviewed and/or edited this written report and agrees with it. Electronically signed by: Tino Rodriguez M.D. Ph.D. us Adria Diop MD IMG MRI PROC EDURES Final Result documented in this encounter Visit Diagnoses Diagnosis Seizure (HCC)- Primary Other convulsions Seizure (HCC) Other convulsions documented in this encounter Discontinued Medications Medication Sig Discontinue Reason Start Date End Da te lamoTRIgine (LaMICtal) 25 mg tablet Take 1 tablet (25 mg total) by mouth daily 05/12/2023 06/24/2023 lamoTRIgine (LaMICtal) 100 mg tablet Take 1 tablet (100 mg total) by mouth 2 (two) times a day 05/29/2023 06/24/2023 documented as of this encounter Care Teams Electric Utility Lineworker Relationship Specialty Start Date End Date Servando Torre MD [address] [facility] [address] [place] [address] PCP - General Family Medicine 06/19/22 Mariela Denton MD [address] [place] [address] Referring Physician Gastroenterology 06/19/22 Lexis Barroso OD [address], [place] [address] Mergers And Acquisitions Manager 09/19/22 documented as of this encounter
--- OUTSIDE RECORDS SUMMARY | 2024-07-12 19:43 | XMS_ITS | Encounter Summary ---
Author Organization [facility] Healthcare Address [address] [place] [address] Care Team Providers Care Waterway Traffic Checker Name Role Phone Servando Torre MD Primary Care Provider [phone]- [phone] Mariela Denton MD Unavailable [phone] [phone] Lexis Barroso OD Unavailable +1- [phone] Encounter Details Date Type Department Care Team (Late st Contact Info) Description 08/22/2023 Telephone [facility] Medical Group Primary Care at [address] [address] Regina Loo MA Social History Tobacco Use Types Packs/Day Years [...] on file Legal Sex Female 9:30 AM DREDGE OR BARGE SHORE HAND Gender Identity Female 04/05/2022 6:17 PM CDT Sexual Orientation Straight 04/05/2022 6: 17 PM CDT documented as of this encounter Ordered Prescriptions Prescription Sig Dispense Quantity Refills Last Filled Start Date End Date metoprolol tartrate (LOPRESSOR) 50 mg immediate release tablet Take 1 tablet (50 mg total) by mouth 2 (two) times a day 180 tablet 1 08/22/2023 documented in this encounter Miscellaneous Notes * Telephone Encounter - Regina Loo MA - 08/22/2023 12:50 PM DREDGE OR BARGE SHORE HAND Refill request from [facility] for Metoprolol Tartrate 50mg tab Last refill 02/20/23 Last ov 08/07/23 GE OR BARGE SHORE HAND documented in this encounter Plan of Treatment Not on file documented as of this encounter Visit Diagnoses Not on filedocumented in this encounter Discontinued Medications Medication Sig Discontinue Reason Start Date End Da te metoprolol tartrate (LOPRESSOR) 50 mg immediate release tablet Take 1 tablet (50 mg total) by mouth 2 (two) times a day Reorder 02/20/2023 08/22/2023 documented as of this encounter Care Teams Waterway Traffic Checker Relationship Specialty Start Date End Date Servando Torre MD [facility] [address] PCP - General Family Medicine 06/19/22 Mariela Denton MD [address] [place] [address] Referring Physician Gastroenterology 06/19/22 Lexis Barroso OD [address] [place] [address] Classer 09/19/22 documented as of this encounter
--- OUTSIDE RECORDS SUMMARY | 2024-07-12 19:43 | XMS_ITS | Encounter Summary ---
Author Organization [facility] Healthcare Address [address] [place] [address] Care Team Providers Care Manager Bar Name Role Phone Servando Torre MD Primary Care Provider Mariela Denton MD Unavailable [phone] Lexis Barroso OD Unavailable [phone]- [phone] Encounter Details Date Type Department Care Team (Latest Contact Info) Description 06/11/2023 2:26 PM BRASS CHASER - 06/11/2023 11:59 PM BRASS CHASER Hospital Encounter [facility] [id number] [place] [address] UTI symptoms Discharge Disposition: Discharge to [...] on file Legal Sex Female 9:30 AM BRASS CHASER Gender Identity Female 04/05/2022 6:17 PM [...] catheter every 8 (eight) weeks Infused at: [facility] ([facility]F order in Epic under 'Procedures' tab). 1 each 5 04/29/2023 nitrofurantoin monohydrate (MACROBID) 100 mg capsuleIndications :UTI symptoms Take 1 capsule (100 mg total) by mouth 2 (two) times a day for 7 days 14 capsule 06/11/2023 3 acetaminophen (acetaminophen Extra Strength) 500 mg tablet Take 1 tablet (500 mg total) by mouth every 6 (six) hours as needed 09/30/2022 4 acetaminophen-code ine (TYLENOL with CODEINE #3) 300-30 mg per tablet 1 tablet EVERY 6 HOURS NEEDED (route: oral) 02/20/2023 3 aspirin 81 mg enteric coated tablet Take 1 tablet (81 mg total) by mouth daily 4 azaTHIOprine (IMURAN) 100 mg tabletIndications: Ulcerative colitis with complication, unspecified location (HCC) Take 1 tablet (100 mg total) by mouth daily Safety labs required every 3 months for med refills, next labs due by the end of 05/2023. 90 tablet 04/01/2023 3 calcium citrate-vitamin D3 250 mg-5 mcg (200 unit) tablet Take 2 tablets by mouth 4 lamoTRIgine (LaMICtal) 100 mg tablet Take 1 tablet (100 mg total) by mouth 2 (two) times a day 180 tablet 3 05/29/2023 3 lamoTRIgine (LaMICtal) 25 mg tablet Take 1 tablet (25 mg total) by mouth daily 05/12/2023 3 mesalamine (APRISO) 0.375 gram 24 hr capsuleIndications :Ulcerative Colitis Take 4 capsules (1.5 g total) by mouth daily 120 capsule 11 08/15/2022 4 metoprolol tartrate (LOPRESSOR) 50 mg immediate release tablet Take 1 tablet (50 mg total) by mouth 2 (two) times a day 180 tablet 1 02/20/2023 4 metoprolol tartrate (LOPRESSOR) 50 mg immediate release tablet Take 1 tablet (50 mg total) by mouth 2 (two) times a day 02/20/[address] (PROTONIX) 40 mg EC tablet Take 1 tablet (40 mg total) by mouth daily 90 tablet 1 02/07/2023 4 pravastatin (PRAVACHOL) 40 mg tablet Take 1 tablet (40 mg total) by mouth daily 90 tablet 1 02/07/2023 4 tiZANidine (ZANAFLEX) 2 mg tablet Take 1 tablet (2 mg total) by mouth every 6 (six) hours as needed 12/31/2022 3 documented as of this encounter Discharge Disposition Disposition Code Departure Means Destination Discharge to home or self care documented in this encounter Plan of Treatment Not on file documented as of this encounter Procedures Procedure Name Priority Date/Time Associated Diagnosis Comments URINE CULTURE Routine 06/11/2023 2:26 PM BRASS CHASER UTI symptoms documented in this encounter Results * Urine culture Urine, clean voided (06/11/2023 2:26 PM BRASS CHASER) Report Final Report: Less than 100,000 colonies/mL (clinically insignificant growth based on current clinical standards) AILEEN Comment:Testing performed by : [facility], [address] [place]., [address] Organism (CLINICALLY INSIGNIFICANT GROWTH AILEEN Urine, clean voided 06/11/2023 2:26 PM BRASS CHASER 06/12/2023 12:13 PM BRASS CHASER Narrative AILEEN - 06/13/2023 5:28 PM BRASS CHASER Testing performed by [facility] Microbiology Laboratory ([phone]) us Servando Torre MD LAB MICROBIOLOGY - GENERAL ORDERABLES Final Result [facility] [address] Department [place] [address] documented in this encounter Visit Diagnoses Diagnosis UTI symptoms documented in this encounter Care Teams Manager Bar Relationship Specialty Start Date End Date Servando Torre MD [facility] [address] [place] [address] PCP - General Family Medicine 06/19/22 Mariela Denton MD [address] [place] [address] Referring Physician Gastroenterology 06/19/22 Lexis Barroso OD [address] [place] [id number] Centrifugal Separator 09/19/22 documented as of this encounter
--- OUTSIDE RECORDS SUMMARY | 2024-07-12 19:43 | XMS_ITS | Encounter Summary ---
Author Organization [facility] Healthcare Address [address] [place] [address] Care Team Providers Care Firebrick Layer Helper Name Role Phone Servando Torre MD Primary Care Provider [phone] Mariela Denton MD Unavailable [phone] Lexis Barroso OD Unavailable [phone]- [phone] Reason for Visit * Reason Comments Medicare Wellness Encounter Details Date Type Department Care Team (Late st Contact Info) Description 06/26/2023 2:00 PM ACID CONDITIONING WORKER Office Visit [facility] Medical [facility] Primary Care at [address] [address] Sevrando Torre MD [address] [place] [address] [address] [place] [address] Encounter for Medicare annual wellness exam (Primary Dx); Hypertension associated with type 2 diabetes mellitus (HCC); Mixed hyperlipidemia; Gastroesophageal reflux disease without esophagitis Social History [...] on file Legal Sex Female 9:30 AM ACID CONDITIONING WORKER Gender Identity Female 04/05/2022 6:17 PM CDT Sexual Orientation Straight 04/05/2022 6: 17 PM CDT documented as of this encounter Last Filed Vital Signs Vital Sign Reading Time Taken Comments Blood Pressure 172/80 06/26/2023 2:29 PM ACID CONDITIONING WORKER Pulse 66 06/26/2023 1:55 PM ACID CONDITIONING WORKER Temperature 36.8 ??C (98.2 ??F) 06/26/2023 1:55 PM CS T Respiratory Rate 17 06/26/2023 1:55 PM ACID CONDITIONING WORKER Oxygen Saturation 96% 06/26/2023 1:55 PM ACID CONDITIONING WORKER Inhaled Oxygen Concentration - - Weight 68.7 kg (151 lb 6.4 oz) 06/26/2023 1:55 P M ACID CONDITIONING WORKER Height 157.5 cm (5' 2 ) 06/26/2023 1:55 PM ACID CONDITIONING WORKER Body Mass Index 27.69 06/26/2023 1:55 PM ACID CONDITIONING WORKER documented in this encounter Patient Instructions * Patient Instructions* Servando Torre MD - 06/26/2023 2:00 PM ACID CONDITIONING WORKER BP trend x 2 weeks, send numbers to me Aiming for readings consistently in the 130's/70's Adding losartan, continue metoprolol and amlodipine Labs ordered for next visit Thanks for coming in today! My medical assistants and I are thankful you have trusted us with your care, and hope that you received EXCELLENT care today! Please do not hesitate to call if you have any questions or concerns at [phone]. You may receive a phone call, text, MYCHART message, or e-mail asking about your care today. We would love to hear your feedback on how EXCELLENT your care wastoday! Wishing you better health, always. Dr. Torre CONDITIONING WORKER CONDITIONING WORKER * Attachments The following attachments cannot be sent through Care Everywhere. * Losartan (By mouth) (Russian) documented in this encounter Ordered Prescriptions Prescription Sig Dispense Quantity Refills Last Filled Start Date End Date losartan (COZAAR) 25 mg tablet Take 1 tablet (25 mg total) by mouth daily 30 tablet 06/26/2023 07/18/2023 documented in this encounter Progress Notes * Servando Torre MD - 06/26/2023 2:00 PM CST MEDICARE ANNUAL WELLNESS VISIT Lisa Allen Medicare Health Risk Assessment HRA added to EHR Problem List, Past Medical and Surgical History: Patient Active Problem List Diagnosis Arthralgia of hip Stress fracture Ear ringing Asymmetrical sensorineural hearing loss Chronic ulcerative colitis, unspecified complication (HCC) Encounter for Medicare annual wellness exam Diabetes mellitus (HCC) Anemia GERD (gastroesophageal reflux disease) Hyperlipidemia Hypertension Ulcerative colitis (HCC) 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 Gout Acute pulmonary edema (CMS/HCC) (HCC) Closed fracture of multiple ribs of left side Multiple fractures of ribs associated with chest compression and cardiopulmonary resuscitation Elevated troponin Liver nodule Cervicalgia Osteopenia Pulmonary nodules Seizure (HCC) GERD (gastroesophageal reflux disease) HTN (hypertension) Prediabetes Ulcerative colitis (HCC) Acute respiratory distress Localization-related symptomatic epilepsy and epileptic syndromes with complex partial seizures, not intractable, without status epilepticus (HCC) Elevated liver enzymes Follow-up examination following treatment with high-risk medication Abnormal liver function tests terminologist (current) use of oral hypoglycemic drugs Type 2 diabetes mellitus without complications (CMS/HCC) (HCC) Other specified diseases of liver Other nonspecific abnormal finding of lung field Hyperlipidemia, unspecified History of falling Epilepsy, unspecified, not intractable, without status epilepticus (HCC) Chronic gout, unspecified, without tophus (tophi) Hospital discharge follow-up 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 Prediabetes 06/19/2022 Ulcerative colitis (HCC) 2019 Past Surgical History: Procedure Laterality Date COLONOSCOPY FEMUR FRACTURE SURGERY Left 2010 PARTIAL HIP ARTHROPLASTY Left 2015 RETINAL DETACHMENT SURGERY Right Family History: Family History Problem Relation Age of Onset Atrial fibrillation Mother Breast cancer Mother Stroke Mother Cancer Father Alzheimer's disease Father 70 [...] (six) hours as needed, Disp: , Rfl: acetaminophen-codeine (TYLENOL with CODEINE #3) 300-30 mg per tablet, 1 tablet EVERY 6 HOURS NEEDED (route: oral), Disp: , Rfl: amLODIPine (NORVASC) 5 mg tablet, Take 1 tablet (5 mg total) by mouth daily, Disp: 90 tablet, Rfl: 1 aspirin 81 mg enteric coated tablet, Take 1 tablet (81 mg total) by mouth daily, Disp: , Rfl: azaTHIOprine (IMURAN) 50 mg tablet, Take 1.5 tablets (75 mg total) by mouth daily Please get drug level checked in one month. Safety labs required every 3 months for med refills., Disp: 45 tablet, Rfl: 1 calcium citrate-vitamin D3 250 mg-5 mcg (200 unit) tablet, Take 2 tablets by mouth, Disp: , Rfl: cholecalciferol (VITAMIN D-3) 2000 unit tablet, Take 1 tablet (2,000 Units total) by mouth daily Low Vitamin D level from 05/30/2022., Disp: 90 tablet, Rfl: 3 ferrous sulfate ER 324 mg (65 mg iron) EC tablet, Take 1 tablet (324 mg total) by mouth daily with breakfast, Disp: 90 tablet, Rfl: 1 lamoTRIgine (LaMICtal) 100 mg tablet, Take 1 tablet (100 mg total) by mouth 2 (two) times a day, Disp: 180 tablet, Rfl: 1 mesalamine (APRISO) 0.375 gram 24 hr capsule, Take 4 capsules (1.5 g total) by mouth daily, Disp: 120 capsule, Rfl: 11 metFORMIN XR (GLUCOPHAGE XR) 750 mg 24 hr tablet, Take 1 tablet (750 mg total) by mouth daily with breakfast, Disp: 30 tablet, Rfl: 11 metoprolol tartrate (LOPRESSOR) 50 mg immediate release tablet, Take 1 tablet (50 mg total) by mouth 2 (two) times a day, Disp: 180 tablet, Rfl: 1 metoprolol tartrate (LOPRESSOR) 50 mg immediate release tablet, Take 1 tablet (50 mg total) by mouth 2 (two) times a day, Disp: , Rfl: multivitamin capsule, Take 1 capsule by mouth [...] 1 tablet (40 mg total) by mouth daily, Disp: 90 tablet, Rfl: 1 pravastatin (PRAVACHOL) 40 mg tablet, Take 1 tablet (40 mg total) by mouth daily, Disp: 90 tablet, Rfl: 1 rosuvastatin (CRESTOR) 40 mg tablet, , Disp: , Rfl: tiZANidine (ZANAFLEX) 2 mg tablet, Take 1 tablet (2 mg total) by mouth every 6 (six) hours as needed, Disp: , Rfl: vedolizumab (ENTYVIO) 300 mg recon soln, Infuse 5 mL (300 mg total) into a venous catheter every 8 (eight) weeks Infused at: [facility] ([facility] order in [facility] under 'Procedures' tab)., Disp: 1 each, Rfl: 5 Depression Screen: PHQ Screening Over the past 2 weeks, how often have you been bothered by any of the following problems? Little Interest or Pleasure in Doing Things: Not at all Feeling Down, Depressed, or Hopeless: Not at all PHQ-2 Total Score (If total score is 3 or more points, staff should administer the PHQ-9): 0 DIONISIOADI Fall Risk Screening In the past year, patient experienced: One or more falls in the last year: No Vitals: Vitals: 06/26/23 1355 06/26/23 1429 BP: (!) 182/80 (!) 172/80 BP Location: Right arm Right arm Patient Position: Sitting Sitting Pulse: 66 Resp: 17 Temp: 36.8 ??C (98.2 ??F) TempSrc: Temporal SpO2: 96% Weight: 68.7 kg (151 lb 6.4 oz) Height: 157.5 cm (5' 2 ) Body mass index is 27.69 kg/m??. Exam: Physical Exam Vitals reviewed. Constitutional: Appearance: She is overweight. HENT: Head: Normocephalic and atraumatic. Eyes: General: No scleral icterus. Neck: Vascular: No carotid bruit. Cardiovascular: Rate and Rhythm: Normal rate and regular rhythm. Heart sounds: Murmur heard. No gallop. Pulmonary: Breath sounds: No wheezing, [...] as Referring Physician (Gastroenterology) Lexis Barroso OD (Floor Grinder) Primary Pharmacy/DME suppliers: [id number] [place], [place] - [address] AT [address] [facility] [id number] Detection of Cognitive Impairment: Mini-Co/5 The patient does have cognitive impairment based on direct observation, discussion with patient or family, or review of medical records. Health Maintenance: Health Maintenance Topics with due status: Overdue Topic Date Due Covid-19 Vaccine 03/28/2023 Health Maintenance Topics with due status: Due On Topic Date Due Well Visit 65+ 06/19/2023 Health Maintenance Topics with due status: Postponed Topic Postponed Until DTaP/Tdap/Td Vaccine 07/27/2023 (Originally 1956) Health Maintenance Topics with due status: Not Due Topic Last Completion Date Dilated Eye Exam 11/29/2022 Osteoporosis Screening-Bone Density Scan 12/12/2022 Foot Exam 12/19/2022 Albumin Creatinine Ratio, Urine 03/21/2023 Lipid Panel 03/21/2023 Hemoglobin A1C 03/21/2023 eGFR 03/21/2023 Fall Risk Assessment 06/26/2023 Depression Screening-PHQ 06/26/2023 Health Maintenance Topics with due status: Completed Topic Last Completion Date Zoster Vaccine 08/01/2020 Pneumococcal vaccine 65+ 03/27/2023 Influenza Vaccine 06/11/2023 Counseling and Referral of Preventative Services: Lifestyle Recommendations Increase Physical Activity, Reduce Weight, and Improve Diet Advanced Directive Durable Power of Customer Insight Analyst: Yes Living Will: Yes Opioid Usage Review [...] need of Covid-19 (booster). We discussed healthy lifes tyle habits, educational material has been given. Medications reviewed, changes documented as per the medical record and discussed with patient along with risks vs benefits. Return in 3 months Hypertension associated with type 2 diabetes mellitus (HCC) Comments: clonidine in office, improved adding losartan, continue amlodipine, metoprolol Orders: - CBC with auto differential; Future - Comprehensive metabolic panel; Future - TSH reflex to free T4; Future - Hemoglobin A1c; Future - cloNIDine (CATAPRES) tablet 0.1 mg Mixed hyperlipidemia - Lipid panel; Future Gastroesophageal reflux disease without esophagitis - CBC with auto differential; Future Other orders - losartan (COZAAR) 25 mg tablet; Take 1 tablet (25 mg total) by mouth daily Patient here for annual Medicare wellness visit [...] update and summary of today's office visit. CONDITIONING WORKER documented in this encounter Miscellaneous Notes * Assessment & Plan Note - Servando Torre MD - 06/26/2023 2:02 PM ACID CONDITIONING WORKER Associated Problem(s): Encounter for Medicare annual wellness exam A(n) yearly Medicare Annual Wellness Visit has been performed today. Lisa Allen is up to date on screening tests. She is in need of None- no screening indicated at this time. She is not up to date on needed preventative vaccinations; She is in need of Covid-19 (booster). We discussed healthy lifes tyle habits, educational material has been given. Medications reviewed, changes documented as per the medical record and discussed with patient along with risks vs benefits. Return in 3 months CONDITIONING WORKER * Addendum Note - Yesenia Parekh - 06/26/2023 2:00 PM CSTAddended by: YESENIA PAREKH on: 09/30/2023 02:03 PM Modules accepted: Orders CONDITIONING WORKER documented in this encounter Plan of Treatment Not on file documented as of this encounter Results * (ABNORMAL) CBC with auto differential (09/30/2023 2:03 PM ACID CONDITIONING WORKER) WBC 8.6 3.8 - 9.9 K/cumm [facility] Hgb 14.1 11.9 - 15.5 g/dL [facility] Hct 44.8 35.6 - 45.5 % [facility] Plt 268 150 - 400 K/cumm [facility] MPV 9.8 9.1 - 12.3 fL [facility] RBC 4.66 3.90 - 5.20 M/cumm [facility] MCV 96.1 81.3 - 96.4 fL [facility] MCH 30.3 27.1 - 33.3 pg [facility] MCHC 31.5(L) 32.3 - 35.7 g/dL [facility] RDW CV 13.8 11.1 - 14.9 % [facility] RDW SD 48.7(H) 35.7 - 48.1 fL [facility] NRBC abs 0.00 0.00 - 0.01 K/cumm [facility] Blood 09/30/2023 2:03 PM ACID CONDITIONING WORKER 09/30/2023 8:09 PM ACID CONDITIONING WORKER Servando Torre MD LAB BLOOD ORDERABLES Final Result Performing Organization Address City/[place] [address] [address] Department [place] [address] * (ABNORMAL) Comprehensive metabolic panel (09/30/2023 2:03 PM ACID CONDITIONING WORKER) Sodium 141 135 - 145 mmol/L [facility] Potassium, pl 4.5 3.3 - 4.9 mmol/L [facility] Chloride 103 97 - 110 mmol/L [facility] CO2 26 22 - 32 mmol/L [facility] Anion gap 12 2 - 15 mmol/L [facility] BUN 22 6 - 25 mg/dL [facility] Creatinine 0.91 0.60 - 1.10 mg/dL [facility] Glucose 97 70 - 199 mg/dL [facility] Comment: [...] interpretive data was last revised 2022. Calcium 10.4(H) 8.5 - 10.3 mg/dL [facility] Bilirubin, total 0.4 0.1 - 1.2 mg/dL [facility] Protein, pl 7.3 6.5 - 8.5 g/dL [facility] Albumin 4.1 3.5 - 5.0 g/dL [facility] Alk phos 84 40 - 130 Units/L [facility] ALT 12 7 - 45 Units/L [facility] AST 25 10 - 45 Units/L [facility] Blood 09/30/2023 2:03 PM ACID CONDITIONING WORKER 09/30/2023 8:09 PM ACID CONDITIONING WORKER us Servando Torre MD LAB BLOOD ORDERABLES Final Result Performing Organization Address City/State/ZIP Co vt Phone Number AILEEN [phone] [facility] Department [place] [address] * Lipid panel (09/30/2023 2:03 PM ACID CONDITIONING WORKER) Cholesterol 191 30 - 199 mg/dL [facility] Comment: Interpretive Data Ages < or = [...] Data was last revised on 2018. Triglycerides 136 <=149 mg/dL [facility] Comment: Interpretive Data Ages < or = [...] Data was last revised on 2018. HDL 59 >=40 mg/dL AILEEN MATTHEW Comment: Interpretive Data [...] was last revised on 2018. LDL, calculated 105 <=129 mg/dL [facility] MATTHEW Comment: Interpretive Data Ages < or = 19 years ??Acceptable: ? <110 mg/dL ??Borderline high: ??110-129 mg/dL ??High: ?>or= 130 mg/dL Ages > or = 20 years ??Optimal: ? <100 mg/dL ??Near optimal: ?100-129 mg/dL ??Borderline high: ?? 130-159 mg/dL ??High: ?>160 mg/dL Literature References: 1. Expert Panel on Integrated Guidelines for Cardiovascular Health and Risk Reduction in Children and Adolescents. Pediatrics 2011;128:S213 2. NCEP Expert Panel. Circulation 2004;110:227 Current Interpretive Data was last revised on 2018. Non-HDL Cholesterol 132 mg/dL AILEEN MATTHEW Comment: [...] revised on 2018. Chol/HDL ratio 3 AILEEN Blood 09/30/2023 2:03 PM ACID CONDITIONING WORKER 09/30/2023 8:09 PM ACID CONDITIONING WORKER Servando Torre MD LAB BLOOD ORDERABLES Final Result Performing Organization Address [facility] Phone Number [facility] [address] [address] [employer] [address] * (ABNORMAL) Hemoglobin A1c (09/30/2023 2:03 PM ACID CONDITIONING WORKER) Hgb A1C 6.3(H) 4.0 - 5.6 % AILEEN Estimated Average Glucose 134 mg/dL [facility] Comment: The ADA recommends reporting an estimated Average Glucose (eAG) with all Hemoglobin A1c results using the equation derived from a study of 507 normal and diabetic adults. ??Minority populations were underrepresented and children were not included. ?? (Diabetes Care 31:5399-5506, 2008). ??The eAG is not equivalent to a fasting glucose. Blood 09/30/2023 2:03 PM ACID CONDITIONING WORKER 09/30/2023 8:09 PM ACID CONDITIONING WORKER Servando Torre MD LAB BLOOD ORDERABLES Final Result Performing Organization Address [facility] de Phone Number AILEEN [phone] [address] [facility] [place] [address] * Thyroid Function [place] (09/30/2023 2:03 PM ACID CONDITIONING WORKER) TSH 0.72 0.30 - 4.20 mcIUnit/mL AILEEN MATTHEW Blood 09/30/2023 2:03 PM ACID CONDITIONING WORKER 09/30/2023 8:09 PM ACID CONDITIONING WORKER Servando Torre MD LAB BLOOD ORDERABLES Final Result [facility] [address] [address] Department [place] [address] documented in this encounter Visit Diagnoses Diagnosis Encounter for Medicare annual wellness exam- Primary Hypertension associated with type 2 diabetes mellitus (HCC) Mixed hyperlipidemia Gastroesophageal reflux disease without esophagitis Esophageal reflux documented in this encounter Administered Medications Inactive Administered Medications - up to 3 most recent administrations Medication Order MAR Action Action Date Dose Rate Site cloNIDine (CATAPRES) tablet 0.1 mg 0.1 mg, oral, Once, On Afua 06/26/23 at 1515, For 1 dose, Indications: hypertensionIndications:hypertensi on Given 06/26/2023 2:34 PM ACID CONDITIONING WORKER 0.1 mg documented in this encounter Discontinued Medications Medication Sig Discontinue Reason Start Date End Da te acetaminophen-codeine (TYLENOL with CODEINE #3) 300-30 mg per tablet 1 tablet EVERY 6 HOURS NEEDED (route: oral) 02/20/2023 06/26/2023 metoprolol tartrate (LOPRESSOR) 50 mg immediate release tablet Take 1 tablet (50 mg total) by mouth 2 (two) times a day Duplicate order 02/20/2023 06/26/2023 documented as of this encounter Historical Medications * This list may reflect changes made after this encounter. Medication Sig Dispense Quantity Refills Last Filled Start D ate End Date rosuvastatin (CRESTOR) 40 mg tablet 06/13/2023 06/27/2023 added in this encounter Care Teams Firebrick Layer Helper Relationship Specialty Start Date End Date Servando Torre MD [facility] [address] [place] [address] PCP - General Family Medicine 06/19/22 Mariela Denton MD [address] [place] [address] Referring Physician Gastroenterology 06/19/22 Lexis Barroso OD [address] [place] [id number] Floor Grinder 09/19/22 documented as of this encounter
--- OUTSIDE RECORDS SUMMARY | 2024-07-12 19:43 | XMS_ITS | Encounter Summary ---
Author Organization [facility] Healthcare Address [address] [place] [address] Care Team Providers Care Staffing Executive Name Role Phone Servando Torre MD Primary Care Provider [phone] Mariela Denton MD Unavailable [phone] [phone] Lexis Barroso OD Unavailable [phone]- [phone] Reason for Visit * Reason Onset Date Comments OV on 06/27/23 07/01/2023 Encounter Details Date Type Department Care Team (Late st Contact Info) Description 07/01/[address] [facility] Cardiology [address] [place] [address] Annemarie Bauman MA OV on 06/27/23 Social History Tobacco Use Types Packs/Day Years [...] on file Legal Sex Female 9:30 AM REGISTER CLERK Gender Identity Female 04/05/2022 6:17 PM CDT Sexual Orientation Straight 04/05/2022 6: 17 PM CDT documented as of this encounter Miscellaneous Notes * Telephone Encounter - Annemarie Bauman MA - 07/01/2023 9:09 AM CST Carolyn messaged me today regarding MyChart msg on 06/27/23. When pt was called from waiting room pt was informed we prefer to only have one guest come back with her. Roomed pt and then received permission from AD for pt to have 2 guest in room for visit. Second guest joined pt and granddaughter prior to appointment starting with Dr. Rosenthal. Pt and both guest left appointment happy and thanked me. Alicia viewed msg yesterday and discussed with me. I offered to respond to msg and Alicia, lead MA, instructed me not to because the matter was handled directly in person directly after MyChart msg wassent. STER CLERK documented in this encounter Plan of Treatment Not on file documented as of this encounter Visit Diagnoses Not on filedocumented in this encounter Care Teams Staffing Executive Relationship Specialty Start Date End Date Servando Torre MD [address] [address] PCP - General Family Medicine 06/19/22 Mariela Denton MD [address] [place] [address] Referring Physician Gastroenterology 06/19/22 Lexis Barroso OD [address] [address] Hand Surgeon 09/19/22 documented as of this encounter
--- OUTSIDE RECORDS SUMMARY | 2024-07-12 19:43 | XMS_ITS | Encounter Summary ---
Author Organization [facility] Address [address] [place] [address] Phone Care Team Providers Care Continuing Education Director Name Role Phone Servando Torre MD Primary Care Provider [phone] Mariela Denton MD Unavailable [phone] Lexis Barroso OD Unavailable [phone]- [phone] Encounter Details Date Type Department Care Team (Late st Contact Info) Description 01/12/2024 4:30 PM CDT Office Visit [facility] Epilepsy [address] [place] [address] [place] [phone] Adria Burleson MD [address] [facility] [place] [address] Seizure (HCC) (Primary Dx) Social History Tobacco [...] points, staff should administer the PHQ-9) 0 01/01/2024 Personal Safety Answer Date Recorded Have you ever been in or are you currently in a harmful physical or emotional relationship or is someone making you feel afraid or unsafe? Denies 03/07/2023 Comments No Sex and Gender Information Value Date Recorded Sex Assigned at Not on file Legal Sex Female 9:30 AM TOUR ESCORT Gender Identity Female 04/05/2022 6:17 PM CDT Sexual Orientation Straight 04/05/2022 6: 17 PM CDT documented as of this encounter Last Filed Vital Signs Vital Sign Reading Time Taken Comments Blood Pressure 151/71 01/12/2024 4:20 PM CDT Pulse 63 01/12/2024 4:20 PM CDT Temperature - - Respiratory Rate - - Oxygen Saturation - - Inhaled Oxygen Concentration - - Weight 68.9 kg (152 lb) 01/12/2024 4:20 PM CDT Height 157.5 cm (5' 2 ) 01/12/2024 4:20 PM CDT Body Mass Index 27.8 01/12/2024 4:20 PM CDT documented in this encounter Ordered Prescriptions Prescription Sig Dispense Quantity Refills Last Filled Start Date End Date lamoTRIgine (LaMICtal) 100 mg tablet Take 1 tablet (100 mg total) by mouth 2 (two) times a day 180 tablet 1 01/12/2024 04/01/2024 documented in this encounter Progress Notes * Adria Burleson MD - 01/12/2024 4:30 PM CDT Patient Name: RADHA ALLEN Date of (): 1945 Encounter Date: 01/12/2024 PCP: Servando Torre MD Provider: Raj Cedillo MD Chief complaint: seizure Interval history: -No seizures -Tolerating LTG without issues or side effects -Moved to assisted living facility 78 y.o. LEFT-handed woman with history of [...] history from last visit: Fall while in [place] 01/30/2023 (high altitude[place] for a family reunion [...] history: Epilepsy Risk Factors: Febrile seizure(s): No HOME HEALTH CARE PHYSICIAN infection: Yes c/b deafness on the R [...] to explain the patient's seizures. -EEG at [facility] on 03/07/2023: This is an [...] (mood issues) ----- Physical Exam Vital Signs There were no vitals filed for this visit. General: Calm and cooperative, no acute distress, [...] right fr ontotemporal epileptiform discharges and slowing. Cedric ky'ed due to agitations and sleepiness, tolerating LTG well without issues. No seizure recurrence. Home ASM: -LTG 100 mg bid Recs: -Continue LTG 100 mg bid --Monitor [...] were discussed. My total encounter time on 01/12/2024 was 30 minutes which was spent in the activities documented inthe note. This includes time spent prior to the visit and after the visit in direct care of the patient. This time does not include time spent in any separately reportable services. documented in this encounter Plan of Treatment Not on file documented as of this encounter Visit Diagnoses Diagnosis Seizure (HCC)- Primary Other convulsions documented in this encounter Discontinued Medications Medication Sig Discontinue Reason Start Date End Da te lamoTRIgine (LaMICtal) 100 mg tablet Take 1 tablet (100 mg total) by mouth 2 (two) times a day Reorder 06/24/2023 01/12/2024 documented as of this encounter Care Teams Continuing Education Director Relationship Specialty Start Date End Date Servando Torre MD [address] [facility] [address] [place] [address] PCP - General Family Medicine 06/19/22 Mariela Denton MD [address] [facility] [address] [place] [address] Referring Physician Gastroenterology 06/19/22 Lexis Barroso OD [address] [place] [address] Coil Machine Supervisor 09/19/22 documented as of this encounter
--- OUTSIDE RECORDS SUMMARY | 2024-07-12 19:43 | XMS_ITS | Encounter Summary ---
Author Organization [facility] Healthcare Address [address] [place] [address] Care Team Providers Care Stem Roller Or Crusher Operator Name Role Phone Servando Torre MD Primary Care Provider [phone] Mariela Denton MD Unavailable [phone] Lexis Barroso OD Unavailable [phone]- [phone] Reason for Visit * Cardiology (Routine) - Closed Specialty Diagnoses / Procedures Referred By Contac t Referred To Contact Diagnoses Syncope, unspecified syncope type Seizure (HCC) Bradycardia Procedures MCT Mobile Cardiac Telemetry Event Monitor Mesfin Rosenthal MD Phone: tel: fax: [facility] Referral ID Status Reason Start Date Expiration Date Visits Re quested Visits Authorized [id number] Closed 06/27/2023 07/26/2024 1 1 Encounter Details Date Type Department Care Team (Latest Contact Info) Description 06/27/2023 2:30 PM RODEO RIDER Ancillary Procedure [facility] Cardiology [address] [place] [address] Syncope, unspecified syncope type; Seizure (HCC); Bradycardia Social History Tobacco Use Types Packs/Day Years [...] on file Legal Sex Female 9:30 AM RODEO RIDER Gender Identity Female 04/05/2022 6:17 PM CDT Sexual Orientation Straight 04/05/2022 6: 17 PM CDT documented as of this encounter Plan of Treatment Not on file documented as of this encounter Procedures Procedure Name Priority Date/Time Associated Diagnosis Comments MCT - MOBILE CARDIAC TELEMETRY EVENT MONITOR Routine 06/27/2023 3:42 PM RODEO RIDER Syncope, unspecified syncope type Seizure (HCC) Bradycardia documented in this encounter Results * MCT Mobile Cardiac Telemetry Event Monitor (06/27/2023 3:42 PM RODEO RIDER) Anatomical Region Laterality Modality Other Narrative 08/01/2023 7:25 PM RODEO RIDER Images from the original result were not included. AMBULATORY CLIENT TECHNICAL SUPPORT ASSOCIATE REPORT Patient Name: Lisa Allen Date of : 1945 ?? Requesting Physician: ?? Mesfin Rosenthal MD Date of interpretation: 08/01/23 Type of monitor : ?? 30 day editing computer publisher Date of the study/Enrollment period: June 27, 2023 to July 26, 2023 Indication: ??bradycardia Quality of the study: acceptable Interpretation: Underlying rhythm is sinus with an average heart rate of 69 beats per minute with a minimum 51 beats per minute and a maximum 116 beats per minute. ??Infrequent premature ventricular contractions totaling 5456 which is less than 1% burden and infrequent premature atrial contractions totaling 4118 which is less than 1% burden noted. ??No atrial fibrillation, atrial flutter, prolonged pauses or high-grade AV blocks. ??Two symptom diary entries reported. ??On June 28 at 10:51 a.m. patient complained of shortness of breath associated with sinus rhythm heart rate 75 beats per minute during light activity. ??On June 30 at 4:18 p.m. patient complained of shortness of breath associated with sinus rhythm heart rate 86 beats per minute during light activity. ??No sustained or nonsustained ventricular tachycardia. Conclusions: ??Underlying sinus rhythm with infrequent PVCs and PACs. ??No atrial fibrillation, atrial flutter, prolonged pauses or high-grade AV blocks. ??Symptoms correspond with sinus rhythm without ectopy. Dania Rosenthal MD, [facility] 08/01/23 Voice recognition software was used to complete this document, therefore, respiratory coordinator variances may occur. Procedure Note Mesfin Rosenthal MD - 08/01/2023 Images from the original note were not included. AMBULATORY CLIENT TECHNICAL SUPPORT ASSOCIATE REPORT Patient Name: Lisa Allen Date of : 1945 Requesting Physician: Mesfin Rosenthal MD Date of interpretation: 08/01/23 Type of monitor : 30 day editing computer publisher Date of the study/Enrollment period: June 27, 2023 to June Indication: bradycardia Quality of the study: acceptable Interpretation: Underlying rhythm is sinus with an average heart rate of 69 beats perminute with a minimum 51 beats per minute and a maximum 116 beats perminute. Infrequent premature ventricular contractions totaling 5456 whichis less than 1% burden and infrequent premature atrial contractionstotaling 4118 which is less than 1% burden noted. No atrial fibrillation,atrial flutter, prolonged pauses or high-grade AV blocks. Two symptomdiary entries reported. On June 28 at 10:51 a.m. patient complainedof shortness of breath associated with sinus rhythm heart rate 75 beatsper minute during light activity. On June 30 at 4:18 p.m. patientcomplained of shortness of breath associated with sinus rhythm heart rate86 beats per minute during light activity. No sustained or nonsustainedventricular tachycardia. Conclusions: Underlying sinus rhythm with infrequent PVCs and PACs. No atrial fibrillation, atrial flutter, prolonged pauses or high-gradeAV blocks. Symptoms correspond with sinus rhythm without ectopy. Dania Rosenthal MD, [facility] 08/01/23 Voice recognition software was used to complete this document, therefore,respiratory coordinator variances may occur. Mesfin Rosenthal MD CV CARDIAC SERVICES PROC EDURES Final Result documented in this encounter Visit Diagnoses Diagnosis Syncope, unspecified syncope type Seizure (HCC) Other convulsions Bradycardia Other specified cardiac dysrhythmias documented in this encounter Care Teams Stem Roller Or Crusher Operator Relationship Specialty Start Date End Date Servando Torre MD [address] [facility] [address] [place] [address] PCP - General Family Medicine 06/19/22 Mariela Denton MD [address] [facility] [address] [place] [address] Referring Physician Gastroenterology 06/19/22 Lexis Barroso OD [address] [place] [address] Systems Mechanic 09/19/22 documented as of this encounter
--- OUTSIDE RECORDS SUMMARY | 2024-07-12 19:43 | XMS_ITS | Encounter Summary ---
Author Organization [facility] Healthcare Address [address] [place] [address] Care Team Providers Care Brick Unloader Tender Name Role Phone Servando Torre MD Primary Care Provider [phone] Mariela Denton MD Unavailable [phone] Lexis Barroso OD Unavailable [phone] Reason for Referral * Cardiology (Routine) - Closed Specialty Diagnoses / Procedures Referred By Angel braswell Referred To Contact Diagnoses Syncope, unspecified syncope type Seizure (HCC) Bradycardia Procedures MCT Mobile Cardiac Telemetry Event Monitor Mesfin Rosenthal MD Phone: tel: fax: [facility] Referral ID Status Reason Start Date Expiration Date Visits Re quested Visits Authorized [id number] Closed 06/27/2023 07/26/2024 1 1 EGNATOR Reason for Visit * Reason Comments New Patient Referred by Dr. David sr for syncope Seizures * Consultation (Routine) - Closed Specialty Diagnoses / Procedures Referred By Contclemencia t Referred To Contact Cardiology Diagnoses Syncope, unspecified syncope type Marixa San NP [address] [facility] [address] [place] [address] Phone: tel: fax: [facility] Cardiology at [address] [place] [address] Phone: tel: fax: Referral ID Status Reason Start Date Expiration Date V isits Requested Visits Authorized [id number] Closed Specialty Services Required 03/06/2023 04/04/2024 1 1 Encounter Details Date Type Department Care Team (Latest Contact Info) Description 06/27/2023 11:15 AM IMPREGNATOR Office Visit [facility] Cardiology at [address] [place] [address] Mesfin Rosenthal MD [address] [facility] [address] [place] [address] Syncope, unspecified syncope type (Primary Dx); Bradycardia; Hypertension associated with diabetes (HCC); Mixed diabetic hyperlipidemia associated with type 2 diabetes mellitus (HCC); Seizure (HCC) Social History Tobacco Use Types Packs/Day [...] on file Legal Sex Female 9:30 AM IMPREGNATOR Gender Identity Female 04/05/2022 6:17 PM CDT Sexual Orientation Straight 04/05/2022 6: 17 PM CDT documented as of this encounter Last Filed Vital Signs Vital Sign Reading Time Taken Comments Blood Pressure 160/82 06/27/2023 11:20 AM IMPREGNATOR Pulse 55 06/27/2023 11:20 AM IMPREGNATOR Temperature - - Respiratory Rate - - Oxygen Saturation 96% 06/27/2023 11:20 AM IMPREGNATOR Inhaled Oxygen Concentration - - Weight 68.6 kg (151 lb 3.2 oz) 06/27/2023 11:20 AM IMPREGNATOR Height 157.5 cm (5' 2 ) 06/27/2023 11:20 AM IMPREGNATOR Body Mass Index 27.65 06/27/2023 11:20 AM IMPREGNATOR documented in this encounter Progress Notes * Mesfin Rosenthal MD - 06/27/2023 11:15 AM CST Images from the original note were not included. DATE OF VISIT: 06/27/2023 CHIEF COMPLAINT Chief Complaint Patient presents with New Patient Referred by Dr. Torre for syncope Seizures ASSESSMENT Diagnoses and all orders for this visit: Syncope, unspecified syncope type (Primary) - Ambulatory referral to Cardiology - MCT Mobile Cardiac Telemetry Event Monitor; Future Bradycardia - MCT Mobile Cardiac Telemetry Event Monitor; Future Hypertension associated with diabetes (HCC) Mixed diabetic hyperlipidemia associated with type 2 diabetes mellitus (HCC) Seizure (HCC) - MCT Mobile Cardiac Telemetry Event Monitor; Future PLAN/RECOMMENDATIONS Possible syncope as reported from January 2023 without noted recurrence. Description concerning given degree of cyanosis reported and the need for CPR. It is unclear if she had a pulse or not yet no other significant tachy or bradyarrhythmias documented with review of available records from Care everyw here from [place] to date. While I can not exclude significant tachy or more likely bradyarrhythmia I feel this is unlikely to have been a contributor to her initial episode from which workup revealed seizure disorder warranting treatment. We discussed the options at great length in this regard. To exclude potential contribution from a bradyarrhythmia 30 day lunchroom monitor has been advised. They verbalized understanding and agreed. Further recommendation to follow after review. She remains on metoprolol tartrate 50 mg twice daily although she is bradycardic she appears hemodynamically stable at this time. No changes at this time recommendation to follow as appropriate. BP not well controlled, goal <130/80mmHg. Monitor BP on routine basis. Call with readings. Continue consistent cardiovascular exercise, weight loss, medication compliance, and low-sodium diet. -continue metoprolol tartrate 50 mg twice daily, amlodipine 5 mg daily. Losartan 25 mg daily just started so will need to monitor response. I suspect she will require uptitration to 50 mg daily potentially also with amlodipine to 10 mg daily as appropriate. Monitor BP call with readings recommendations to follow. Caution to avoid symptomatic hypotension. Lipids personally reviewed from 03/21/23 LDL 89, [...] seizures. Defer to Neurology in this regard. -12 lead EKG today personally reviewed and discussed normal sinus rhythm 62 beats per minute UT 172milliseconds QRS 92 milliseconds QT corrected 419 milliseconds, normal ECG. Over 50% of this visit counseling possible syncope, HTN, lipids, medications, lifestyle modification. Follow up in the office in 2-3 months or sooner as needed. Thank you for allowing me the privilege of participating in the care this very pleasant patient. Please do not hesitate to contact me with any additional questions or concerns. HPI Lisa Allen is a 78 y.o. female with a PMHx of DM, Ulcerative Colitis, HTN, hyperlipidemia, epilepsy, vascular dementia seen in very kind referral by Marixa San NP for my opinion regarding possible syncope. 06/27/23 Initial visit: On 01/30/23 while in [place] during family reunion had a seizure at 9600 ft elevation dx with suspected seizure in [place]. Brain MRI some spot noted unclear etiology [...] spells like initiallynoted. She had Echo in [place] and at [place]. No mention or issues of sig arrhythmias MEDICAL HISTORY Past Medical History: Diagnosis Date [...] coated tablet azaTHIOprine (IMURAN) 50 mg tablet calcium citrate-vitamin D3 250 mg-5 mcg (200 unit) tablet cholecalciferol (VITAMIN D-3) 2000 unit tablet ferrous sulfate ER 324 mg (65 mg iron) EC tablet lamoTRIgine (LaMICtal) 100 mg tablet losartan (COZAAR) 25 mg tablet mesalamine (APRISO) 0.375 gram 24 hr capsule metFORMIN XR (GLUCOPHAGE XR) 750 mg 24 hr tablet metoprolol tartrate (LOPRESSOR) 50 mg immediate release tablet multivitamin capsule OneTouch Delica Plus Lancet 33 gauge [facility] [place] OneTouch Ultra Test strip pantoprazole DR (PROTONIX) 40 mg EC tablet pravastatin (PRAVACHOL) 40 mg tablet vedolizumab (ENTYVIO) 300 mg recon soln rosuvastatin (CRESTOR) 40 mg tablet tiZANidine (ZANAFLEX) 2 mg tablet ALLERGIES Allergies Allergen Reactions Penicillins Hives She [...] and are negative. PHYSICAL EXAM Vitals BP 160/82 (BP Location: Left arm, Patient Position: Sitting) Pulse 55 Ht 157.5 cm (5' 2 ) Wt 68.6 kg (151 lb 3.2 oz) SpO2 96% BMI 27.65 kg/m?? Weight: 68.6 kg (151 lb 3.2 oz) Height: 157.5 cm (5' 2 ) Body mass index is 27.65 kg/m??. Physical Exam Vitals reviewed. Constitutional: General: [...] 02/07/2023 Results for orders placed or performed during the hospital encounter of 06/11/23 Urine culture Urine, clean voided Specimen: Urine, clean voided Result Value Ref Range Report Final Report: Less than 100,000 colonies/mL (clinically insignificant growth based on current clinical standards) Organism (CLINICALLY INSIGNIFICANT GROWTH Care everywhere records review outside medical facility [...] intracranial abnormality is identified. DICTATED BY: LULU AESTMAN Date: 01/31/2023 16:38 MT 03/08/2023 CT head: [...] matter changes consistent with small-vessel ischemic disease. I have personally reviewed and analyzed EKG, electronic medical record, and bloodwork/lipids. Dania Rosenthal MD, [facility] This note is dictated and transcribed using [employer]ikan[employer] Software. Financial Aids Officer variancesmay occur. Despite proofreading, typographical errors may occur. EGNATOR documented in this encounter Miscellaneous Notes * Addendum Note - Annemarie Bauman MA - 06/27/2023 11:15 AM CSTAddended by: ANNEMARIE BAUMAN on: 06/30/2023 11:33 AM Modules accepted: Orders EGNATOR documented in this encounter Plan of Treatment Not on file documented as of this encounter Procedures Procedure Name Priority Date/Time Associated Diagnosis Comments ECG 12-LEAD Routine 06/27/2023 Syncope, unspecified syncope type Seizure (HCC) Bradycardia documented in this encounter Results * MCT Mobile Cardiac Telemetry Event Monitor (06/27/2023 3:42 PM IMPREGNATOR) Anatomical Region Laterality Modality Other Narrative 08/01/2023 7:25 PM IMPREGNATOR Images from the original result were not included. AMBULATORY DROP BOARD MAN REPORT Patient Name: Lisa Allen Date of : 1945 ?? Requesting Physician: ?? Mesfin Rosenthal MD Date of interpretation: 08/01/23 Type of monitor : ?? 30 day lunchroom monitor Date of the study/Enrollment period: June [...] sinus rhythm without ectopy. Dania Rosenthal MD, [facility] 08/01/23 Voice recognition software was used to complete this document, therefore, kosher dietary service manager variances may occur. Procedure Note Mesfin Rosenthal MD - 08/01/2023 Images from the original note were not included. AMBULATORY DROP BOARD MAN REPORT Patient Name: Lisa Allen Date of : 1945 Requesting Physician: Mesfin Rosenthal MD Date of interpretation: 08/01/23 Type of monitor : 30 day lunchroom monitor Date of the study/Enrollment period: June [...] sinus rhythm without ectopy. Dania Rosenthal MD, [facility] 08/01/23 Voice recognition software was used to complete this document, therefore,kosher dietary service manager variances may occur. Mesfin Rosenthal MD CV CARDIAC SERVICES PROC EDURES Final Result * ECG 12 lead (06/27/2023) us Mesfin Rosenthal MD ECG ORDERABLES Final Re sult documented in this encounter Visit Diagnoses Diagnosis Syncope, unspecified syncope type- Primary Bradycardia Other specified cardiac dysrhythmias Hypertension associated with diabetes (HCC) Unspecified essential hypertension Mixed diabetic hyperlipidemia associated with type 2 diabetes mellitus (HCC) Seizure (HCC) Other convulsions Syncope, unspecified syncope type Seizure (HCC) Other convulsions Bradycardia Other specified cardiac dysrhythmias documented in this encounter Discontinued Medications Medication Sig Discontinue Reason Start Date End Da te rosuvastatin (CRESTOR) 40 mg tablet 06/13/2023 06/27/2023 tiZANidine (ZANAFLEX) 2 mg tablet Take 1 tablet (2 mg total) by mouth every 6 (six) hours as needed 12/31/2022 06/27/2023 documented as of this encounter Orders Outpatient Referral Count Last Ordered Date Fir st Ordered Date AMB REFERRAL TO CARDIOLOGY 1 06/27/2023 documented in this encounter Care Teams Brick Unloader Tender Relationship Specialty Start Date End Date Servando Torre MD NPI: [id number] [place] [address] [address] [place] [address] PCP - General Family Medicine 06/19/22 Mariela Denton MD [address] [place] [address] Referring Physician Gastroenterology 06/19/22 Lexis Barroso OD [address] [place] [address] Cement Cutter 09/19/22 documented as of this encounter
--- OUTSIDE RECORDS SUMMARY | 2024-07-12 19:43 | XMS_ITS | Encounter Summary ---
Author Organization [facility] Address [address] [place] [address] Phone Care Team Providers Care Lead Miner Name Role Phone Servando Torre MD Primary Care Provider [phone] Mariela Denton MD Unavailable [phone] Lexis Barroso OD Unavailable [phone] Reason for Visit * Reason Comments Follow-up Encounter Details Date Type Department Care Team (Late st Contact Info) Description 11/17/2023 11:15 AM CDT Office Visit [facility] [address] 6th [address] [place] [id number] [place], Pamela Ruiz NP [id number] [place] [address] Vascular dementia without behavioral disturbance (HCC) (Primary [...] file Legal Sex Female 9:30 AM SENIOR PROJECT COORDINATOR Gender Identity Female 04/05/2022 6:17 PM CDT Sexual Orientation Straight 04/05/2022 6: 17 PM CDT documented as of this encounter Last Filed Vital Signs Vital Sign Reading Time Taken Comments Blood Pressure 160/78 11/17/2023 11:35 AM CDT Pulse 68 11/17/2023 11:35 AM CDT Temperature 36.3 ??C (97.3 ??F) 11/17/2023 11:35 AM C DT Respiratory Rate - - Oxygen Saturation 97% 11/17/2023 11:35 AM CDT Inhaled Oxygen Concentration - - Weight 66.2 kg (146 lb) 11/17/2023 11:35 AM CDT Height 157.5 cm (5' 2 ) 11/17/2023 11:35 AM CDT Body Mass Index 26.7 11/17/2023 11:35 AM CDT documented in this encounter Patient Instructions * Patient Instructions* Pamela Langston NP - 11/17/2023 11:15 AM CDT [facility] TODAY'S VISIT Provider: GIBRAN Richard (Nurse Practitioner) Thank you for coming to the [facility] today. We appreciate this opportunity to participate in your care. We have reviewed the concerns about your memory and thinking. Memory and thinking test scores today: MMSE (Mini Mental Status Exam): A perfect score on this test is 30. A score of of between 27-30 is considered normal. A score of 24-26 is considered mildly impaired. A score of 20-23 is impaired. Scores below 20 show moderate impairment and 10 or below shows severe impairment. Diagnosis We think that the changes you and your family have observed in your memory and thinking are most likely caused by: Vascular dementia It will be important to re-assess your memory in the future. We can compare your test results in the future to the test results from today so we can get a more accurate picture of how your memory haschanged. Medications: We recommend starting rivastigmine/Exelon 4.6 mg daily for one month then increasing to 9.5 mg after one month if tolerated. Additional Recommendations: Nutrition: We recommend that you eat a balanced diet, including fruits and vegetables daily and regular servings of fish. We recommend a heart healthy diet. Activity: We recommend that you engage in daily physical activity such as walking or stretching. Werecommend you do things that stimulate your mind, [...] do a relaxing activity fora few minutes. -Avoid taking medications like Tylenol PM, or Advil PM, these drugs can make memory and thinking worse. We recommend you do not drink alcohol, if you must drink, we recommend you limit alcohol to one drink per day, where a drink is defined as 12 oz of beer, 5 oz of wine, or 1.5 oz of spirits. Safety concerns: We recommend family oversee medications. Medication planners with alarms are sometimes helpful. We recommend The Medic Alert and Safe Return Program, from The Alzheimer's Association, please call [phone], or you can register online [email or web address]. Driving: You have retired from driving, and we are in agreement with this decision Level of Care Recommendation: Assisted Living: assistance with meals, medication, and transportation is available, and where there are opportunities for social interactions and activities. Legal: No legal concerns were discussed today. RESOURCES FOR ADDITIONAL INFORMATION AND SUPPORT Opportunities to participate in research can be found at: trialmatch.alz.org Access TrialMatch online. For additional assistance, email TrialMatch@[employer].org or call 272.693.6878 (press 1 for clinical trials). ClinicalTrials.gov is a resource provided by the U.S. National Library of Medicine. You can look upclinical trials (research opportunities) online At clinicaltrials.gov Alzheimer's Association [facility] Chapter: ; (toll free); http://www.alz.org, The Alzheimer's Association 17/02 Helpline provides reliable information and support to all those who need assistance. Call toll-free anytime day or night at . Caregiver Guide: tips for caregivers of people with Alzheimer's dementia, www.jerry.nih.gov/Alzheimers /Publication/Pyownj-qdmeqm-eifefvfvoj-disease/about-guide [facility], [address] [place]. [address], , Occupational Therapists who offers caregiver training, family support, and in home safety assessments at no cost. Memorycarehs.org [facility] Agency on Aging (serving [facility]) http://research psychiatric center.[place].[facility]/government/hslaaa.html [facility] Agency on Aging (serving [facility] [email or web address] If you need to reach our office, please call our nurse at [phone], option 4, leave a message, this voicemail is checked several times per day. If you need to contact our addiction social worker: Pablo Burt or Edd Lino, from the Alzheimer's Association, please call [phone] Future Appointments Date Time Provider Department Center 01/01/2024 2:00 PM Servando Torre MD [facility] EDW2 01/12/2024 4:30 PM Adria Burleson MD EPI CAM 6C NL 05/05/2024 3:45 PM Josué Cook MD GI CAM 12B NICE GASTRO 05/11/2024 4:00 PM Kimberly Nicolas MD [facility] CAM 6C NL 09/23/2024 2:00 PM Teofilo Tang MD [facility] CAR MRVL Specialty documented in this encounter Ordered Prescriptions Prescription Sig Dispense Quantity Refills Last Filled Start Date End Date rivastigmine (EXELON) 4.6 mg/[address] 4.6 mg on the skin daily 30 patch 1 11/17/2023 05/19/2024 documented in this encounter Progress Notes * Pamela Langston NP - 11/17/2023 11:15 AM CDT [facility] OFFICE VISIT Pamela MACK- (Nurse Practitioner) [facility] Department of Neurology Patient Name: RADHA ALLEN Medical Record Number (MRN): [id number] Date of (): 1945 Encounter Date: 11/17/2023 Referring MD: Dr. Servando Torre MD Primary Care Practitioner: Servando Ballard MD CHIEF COMPLAINT Memory and thinking difficulty Collateral Source: Daughter Aby , serves as the collateral source/sources (CS/CS's). The CS typically sees the patient daily. HISTORY OF PRESENT ILLNESS Ms. Allen is a 78 y.o. lady who comes to the [facility] today for further evaluation of memory and thinking problems. She is in generally good health. Pmh: HL, HTN, DM, UC, and focal seizures Dementia History: IOV with Dr. Nicolas 04/09/2023 with a 2 year history of memory and thinking difficulties. The first problems noted were asking odd questions, which happens when she gets more tired, andsleepy. She has difficulty managing medications. She will repeat questions, stories and statements at night times. Judgment and problem solving abilities are still good, but not as good as before. She needs prompting to bathe or groom. The most likely etiologic cause is vascular dementia. She clearly has vascular lesions of brain bleed and some microbleeds, which are of unclear etiology. She has mild atrophy, but appears age appropriate. Her memory symptoms and confusions tend to get worse with fatigue, and sleepiness, which also can be part of sun downing, but CS also endorses worsened agitations and increased sleepiness since the initiation of keppra/levetiracetam, which can impact the cognition at this time. MMSE: 28, CDR: 0.5, SB: 3.5 TODAY'S VISIT: There have not been hospitalizations, or major medical illnesses since the last visit. Medications were reviewed, there were changes. Overall, the CS thinks memory and thinking problems have gotten worse, over the past 6-12 months. She moved into an assisted living facility at the end of the year. Her agitation has improved sincethe move. Her anxiety is still there. She is doing neuro feedback with a chiropractor. She is not eating well. If she were living alone she would eat nothing, but since being at assisted living facility she will now go eat and socialize. She is not sleeping well. She used to be frustrated with whatshe is forgetting, but now she will try to cover it. She used to have such a sharp memory. She might ask about a spouse that has past on. She can get her daughter and granddaughter confused for otherfamily members. They make sure she is showering. They keep her apartment clean. The memory and thinking problems are consistent and have been slowly progressive. Caregiver State: mild stress at this time. We went over resources and supports for caregivers, discussed availability of our Accounting Analyst from the Alzheimer's Association ACTIVE PROBLEMS Patient Active Problem List Diagnosis [...] with high-risk medication Abnormal liver function tests senior care (current) use of oral hypoglycemic drugs Type [...] psychotic disturbance, mood disturbance, and anxiety (HCC) PAST MEDICAL HISTORY Past Medical History: Diagnosis [...] a day, Disp: 180 tablet, Rfl: 1 losartan (COZAAR) 100 mg tablet, Take 1 tablet (100 mg total) by mouth daily, Disp: 30 tablet, Rfl:11 magnesium carbonate (MAGONATE) liquid (54 mg of elemental magnesium/5 mL), Take 10 mL (108 mg of elemental magnesium total) by mouth nightly Take 2 Tablets (235mg) nightly, Disp: 300 mL, Rfl: 11 mesalamine (APRISO) 0.375 gram 24 hr capsule, [...] mouth daily, Disp: 90 tablet, Rfl: 3 pravastatin (PRAVACHOL) 40 mg tablet, Take 1 tablet (40 mg total) by mouth nightly, Disp: 90 tablet, Rfl: 3 vedolizumab (ENTYVIO) 300 mg recon soln, Infuse 5 mL (300 mg total) into a venous catheter every 8 (eight) weeks Infused at: [facility] order in [facility] under 'Procedures' tab)., Disp: 1 each, Rfl: 5 FAMILY & SOCIAL HISTORY Family History Problem [...] not drink Frequency of Binge Drinking: Never Review of Systems Constitutional: Negative. HENT: Negative. Eyes: Negative. Respiratory: Negative. Cardiovascular: Negative. Gastrointestinal: Negative. Genitourinary: Negative. Musculoskeletal: Negative. Skin: Negative. Neurological: Negative. Endo/Heme/Allergies: Negative. Psychiatric/Behavioral: Positive for memory loss. Medical Records Review: I reviewed [facility] notes and prior Neuropsychometric testing scores. 04/09/2023 7:00 AM [facility] Neurobehavioral Status Exam Results Repository ICF signed? No Verbal Fluency Total Score 10 [place] Naming (15 item) Total Score 15 MMSE Score 28 Word List Memory Task 21 Word List Recall 5 Short Blessed Total Score 0 Logical Memory Total Score 10 Trails A - Seconds to complete 54 Trails A - Errors 0 Trails B - Seconds to complete 180 Trails B - Errors 3 Total Score (out of 90) 24 Digit Symbol Errors 0 Lab Results Component Value Date TSH 0.72 09/30/2023 Lab Results Component Value Date WBC 8.6 09/30/2023 HGB 14.1 09/30/2023 HCT 44.8 09/30/2023 MCV 96.1 09/30/2023 LABPLAT 268 09/30/2023 Lab Results Component Value Date GLUCOSE 97 09/30/2023 CALCIUM 10.4 (H) 09/30/2023 SODIUM 141 09/30/2023 POTASSIUM 4.5 09/30/2023 CO2 26 09/30/2023 CHLORIDE 103 09/30/2023 BUNSER 22 09/30/2023 CREATININE 0.91 09/30/2023 Lab Results Component Value Date ALT 12 09/30/2023 AST 25 09/30/2023 ALKPHOS 84 09/30/2023 BILITOT 0.4 09/30/2023 Lab Results Component Value Date VITB12 >2,000 (H) 05/30/2022 PHYSICAL EXAMINATION BP 160/78 (BP Location: Right arm, Patient Position: Sitting) Pulse 68 Temp 36.3 ??C (97.3 ??F) Ht 157.5 cm (5' 2 ) Wt 66.2 kg (146 lb) SpO2 97% BMI 26.70 kg/m?? General Assessment There were no orthostatic complaints. Cranial Nerves Visual minor testing intact. Pupils were equal, round and reactive to light. Extraocular movementswere normal with smooth pursuit. Facial sensation was intact in all three divisions of the trigeminal nerve. Facial movement was symmetric. Hearing was Intact. Palate elevation was symmetric. Shoulder shrug and head turning were symmetric. Tongue protrusion was midline. Motor Motor exam revealed normal bulk, normal tone, and normal strength throughout. Fine finger movementswere normal . There was no pronator drift. Tremor was absent, bradykinesia was absent. Sensation Sensation was intact to light touch. Coordination [id number]-[id number]-[id number] testing was normal. Reflexes Reflexes were symmetric at the biceps, brachioradialis and knees. Gait Gait was slow and ambulates with walker She was fluent throughout the interview and examination. NEUROBEHAVIORAL TESTING REPORT On formal neurobehavioral testing, which took from [id number]. On more global tests, MMSE was 29. Episodic recall was 3/3. These findings are consistent with not impaired My interpretation and reporting of these results took 15 minutes. I reviewed the testing with the CS (CS'S) and patient and compared prior testing scores. GDS (Geriatric Depression Screen) was administered today, this was reviewed in the psychometric package- She endorsed 0 items on the GDS. Neurobehavioral test results: 04/09/2023 7:00 AM [facility] Neurobehavioral Status Exam Results Repository ICF signed? No Verbal Fluency Total Score 10 [place] Naming (15 item) Total Score 15 MMSE Score 28 Word List Memory Task 21 Word List Recall 5 Short Blessed Total Score 0 Logical Memory Total Score 10 Trails A - Seconds to complete 54 Trails A - Errors 0 Trails B - Seconds to complete 180 Trails B - Errors 3 Total Score (out of 90) 24 Digit Symbol Errors 0 Clinical Dementia Ratin04/09/2023 7:00 AM [facility] CDR/DIAGNOSIS NEW Repository ICF signed? No Memory 0.5 Orientation 0.5 Judgement & Problem Solving 0.5 Community Affairs 0.5 Home & Hobbies 0.5 Personal Care 1 Global Score 0.5 Sum of Boxes 3.5 Year of Onset 2021 Non-AD Dementia Primary Vascular Dementia Mood disorder (any type) Active Bereavement Active Medication induced cognitive disorder Active Seizure disorder Active ASSESSMENT Ms. Allen is a 78 y.o. lady with a history of slowly progressive cognitive changes, consistent with a clinical diagnosis of Vascular dementia. Her cognitive testing has remained stable. She is having some mild delusions (getting family mixed up) which I would recommend we trial rivastigmine/Exelon 4.6 mg and increase to 9.5 mg after one month. Given her history of Ulcerative colitis I would preferusing rivastigmine/Exelon patch over oral cholinesterase inhibitor. She is now living in assisted living facility at [facility] in [place], [place]. She is struggling with sleep and appetite is low at times. Could consider adding mirtazapine in the future. PLAN OF CARE: (Shared with CS, CS's) Referral made to community resources (no resources indicated at this time) 1. Vascular dementia without behavioral disturbance (HCC) No orders of the defined types were placed in this encounter. Patient Instructions [facility] TODAY'S VISIT Provider: GIBRAN Richard (Nurse Practitioner) Thank you for coming to the [facility] today. We appreciate this opportunity to participate in your care. We have reviewed the concerns about your memory and thinking. Memory and thinking test scores today: MMSE (Mini Mental Status Exam): A perfect score on this test is 30. A score of of between 27-30 is considered normal. A score of 24-26 is considered mildly impaired. A score of 20-23 is impaired. Scores below 20 show moderate impairment and 10 or below shows severe impairment. Diagnosis We think that the changes you and your family have observed in your memory and thinking are most likely caused by: Vascular dementia It will be important to re-assess your memory in the future. We can compare your test results in the future to the test results from today so we can get a more accurate picture of how your memory haschanged. Medications: We recommend starting rivastigmine/Exelon 4.6 mg daily for one month then increasing to 9.5 mg after one month if tolerated. Additional Recommendations: Nutrition: We recommend that you eat a balanced diet, including fruits and vegetables daily and regular servings of fish. We recommend a heart healthy diet. Activity: We recommend that you engage in daily physical activity such as walking or stretching. Werecommend you do things that stimulate your mind, [...] do a relaxing activity fora few minutes. -Avoid taking medications like Tylenol PM, or Advil PM, these drugs can make memory and thinking worse. We recommend you do not drink alcohol, if you must drink, we recommend you limit alcohol to one drink per day, where a drink is defined as 12 oz of beer, 5 oz of wine, or 1.5 oz of spirits. Safety concerns: We recommend family oversee medications. Medication planners with alarms are sometimes helpful. We recommend The Medic Alert and Safe Return Program, from The Alzheimer's Association, please call [phone], or you can register online [email or web address]. Driving: You have retired from driving, and we are in agreement with this decision Level of Care Recommendation: Assisted Living: assistance with meals, medication, and transportation is available, and where there are opportunities for social interactions and activities. Legal: No legal concerns were discussed today. RESOURCES FOR ADDITIONAL INFORMATION AND SUPPORT Opportunities to participate in research can be found at: trialmatch.alz.org Access TrialMatch online. For additional assistance, email or call 815.888.8600 (press 1 for clinical trials). ClinicalTrials.gov is a resource provided by the U.S. National Library of Medicine. You can look upclinical trials (research opportunities) online At clinicaltrials.gov Alzheimer's Association [facility] Chapter: ; (toll free); http://www.alz.org, The Alzheimer's Association 17/02 Helpline provides reliable information and support to all those who need assistance. Call toll-free anytime day or night at . Caregiver Guide: tips for caregivers of people with Alzheimer's dementia, www.jerry.nih.gov/Alzheimers /Publication/Cyjaos-umopkp-rfdzvdfdlf-disease/about-guide [facility], [address] [place]. [address], , Occupational Therapists who offers caregiver training, family support, and in home safety assessments at no cost. Memorycarehs.org [facility] Agency on Aging ([facility]) http://research psychiatric center.[place].[facility]/government/hslaaa.html [facility] on [facility] [email or web address] If you need to reach our office, please call our nurse at [phone], option 4, leave a message, this voicemail is checked several times per day. If you need to contact our addiction social worker: Pablo Burt or Edd Lino, from the Alzheimer's Association, please call [phone] Future Appointments Date Time Provider Department Center 01/01/2024 2:00 PM Servando Torre MD PCP EDW2 01/12/2024 4:30 PM Adria Bruleson MD EPI CAM 6C 05/05/2024 3:45 PM Josué Cook MD [place] [id number] [facility] 05/11/2024 4:00 PM Kimberly Nicolas MD [facility] CAM 6C 09/23/2024 2:00 PM Teofilo Tang MD [facility] CAR VL Specialty I spent 45 minutes,face to face with Ms. Allen and the CS/CS's, for assessment of, and care planningfor this patient who has cognitive impairment. Over 50 % of the time was spent on counseling, and coordination of care. See after visit summary for discussion/education topic specifics to today's discussion. A written copy of discussion topics was provided to the patient and family, all questions were answered. Portions of this note were copied forward from a prior encounter and updated to reflect the currentclinical condition. Pamela Langston MSN, COMMUNITY SERVICE PATROL OFFICER-[facility] [employer] [facility] [address] [place] [address] documented in this encounter Plan of Treatment Not on file documented as of this encounter Visit Diagnoses Diagnosis Vascular dementia without behavioral disturbance (HCC)- Primary documented in this encounter Care Teams Lead Miner Relationship Specialty Start Date End Date Servando Torre MD [address] [place] [address] PCP - General Family Medicine 06/19/22 Mariela Denton MD [address] [place] [address] Referring Physician Gastroenterology 06/19/22 Lexis Barroso OD [address] [place] [id number] Geomorphology Teacher 09/19/22 documented as of this encounter
--- OUTSIDE RECORDS SUMMARY | 2024-07-12 19:43 | XMS_ITS | Encounter Summary ---
Author Organization [facility] Address [address] [place] [address] Phone Care Team Providers Care Yard Driver Name Role Phone Servando Torre MD Primary Care Provider [phone] Mariela Denton MD Unavailable [phone] Lexis Barroso OD Unavailable [phone] Encounter Details Date Type Department Care Team (Late st Contact Info) Description 10/29/2023 1:00 PM CDT Office Visit [facility] Gastroenterology [address] 12th [place] [address] [place] [address] Josué Cook MD [address] [facility] [address] [place], [place] [id number] Ulcerative colitis with complication, unspecified location (HCC) Social History Tobacco Use Types Packs/Day [...] on file Legal Sex Female 9:30 AM FOOD AND BEVERAGE COORDINATOR Gender Identity Female 04/05/2022 6:17 PM CDT Sexual Orientation Straight 04/05/2022 6: 17 PM CDT documented as of this encounter Last Filed Vital Signs Vital Sign Reading Time Taken Comments Blood Pressure 164/83 10/29/2023 12:59 PM CDT Pulse 62 10/29/2023 12:59 PM CDT Temperature 36.8 ??C (98.2 ??F) 10/29/2023 12:59 PM C DT Respiratory Rate - - Oxygen Saturation - - Inhaled Oxygen Concentration - - Weight 65.8 kg (145 lb) 10/29/2023 12:59 PM CDT Height 157.5 cm (5' 2 ) 10/29/2023 12:59 PM CDT Body Mass Index 26.52 10/29/2023 12:59 PM CDT documented in this encounter Patient Instructions * Patient Instructions* Ayala Mobley RN - 10/29/2023 1:00 PM CDT Stop Azathioprine. Continue Entyvio every 8 weeks, continue Apriso. documented in this encounter Ordered Prescriptions Prescription Sig Dispense Quantity Refills Last Filled Start Date End Date mesalamine (APRISO) 0.375 gram 24 hr capsuleIndications :Ulcerative Colitis Take 2 capsules by mouth in the morning and 2 capsules in the evening 120 capsule 5 10/29/2023 documented in this encounter Progress Notes * Josué Cook MD - 10/29/2023 1:00 PM CDT Images from the original note were not included. [facility] Department of Gastroenterology Reason for the visit: Transition of care, ulcerative colitis Current IBD Medications: Entyvio 300 [...] in the GI clinic in April 2023. Past Medical & Surgical history: Prediabetes Family [...] above in the HPI Physical Exam: BP 164/83 Pulse 62 Temp 36.8 ??C (98.2 ??F) Ht 157.5 cm (5' 2 ) Wt 65.8 kg (145 lb) BMI 26.52 kg/m?? General: Well-appearing, in no acute distress. [...] triple phase MRI Follow up in April 2024 Josué Cook MD Broom Bundlerphysician practice manager Department of Gastroenterology [facility] documented in this encounter Plan of Treatment Not on file documented as of this encounter Visit Diagnoses Diagnosis Ulcerative colitis with complication, unspecified location (HCC) documented in this encounter Discontinued Medications Medication Sig Discontinue Reason Start Date End Da te azaTHIOprine (IMURAN) 50 mg tabletIndications:Ulcer ative Colitis Take 1.5 tablets (75 mg total) by mouth daily Please get drug level checked in one month. Safety labs required every 3 months for med refills. 06/18/2023 10/29/2023 mesalamine (APRISO) 0.375 gram 24 hr capsuleIndications:Ulce rative Colitis Take 2 capsules by mouth in the morning and 2 capsules in the evening Reorder 08/27/2023 10/29/2023 documented as of this encounter Care Teams Yard Driver Relationship Specialty Start Date End Date Servando Torre MD [address] [address] PCP - General Family Medicine 06/19/22 Mariela Denton MD [address] [place] [address] Referring Physician Gastroenterology 06/19/22 Lexis Barroso OD [address] [place] [address] Licensed Reactor Operator 09/19/22 documented as of this encounter
--- OUTSIDE RECORDS SUMMARY | 2024-07-12 19:43 | XMS_ITS | Encounter Summary ---
Author Organization [facility] Healthcare Address [address] [place] [address] Care Team Providers Care Management Liaison Name Role Phone Servando Torre MD Primary Care Provider [phone] Mariela Denton MD Unavailable [phone] Lexis Barroso OD Unavailable [phone] Reason for Referral * MRI/CAT/PET Scan (Routine) - Closed Specialty Diagnoses / Procedures Referred By Contac t Referred To Contact Radiology Diagnoses Seizure (HCC) Procedures MRI Brain WO Contrast Adria Burleson MD [address] [address] Phone: tel: fax: [address] [address] Referral ID Status Reason Start Date Expiration Date Visits Re quested Visits Authorized [id number] Closed 06/24/2023 07/23/2024 1 1 NCT SOCIOLOGY PROFESSOR Reason for Visit * MRI/CAT/PET Scan (Routine) - Closed Specialty Diagnoses / Procedures Referred By Contac t Referred To Contact Radiology Diagnoses Seizure (HCC) Procedures MRI Brain WO Contrast Adria Burleson MD [address] [address] Phone: tel: fax: [facility] [address] [place] [address] Referral ID Status Reason Start Date Expiration Date Visits Re quested Visits Authorized [id number] Closed 06/24/2023 07/23/2024 1 1 Encounter Details Date Type Department Care Team (Latest Contact Info) Description 07/11/2023 1:24 PM ADJUNCT SOCIOLOGY PROFESSOR - 07/11/2023 11:59 PM ADJUNCT SOCIOLOGY PROFESSOR Hospital Encounter [facility] [address] [place] [id number] Seizure (HCC) Discharge Disposition: Discharge to home or [...] on file Legal Sex Female 9:30 AM ADJUNCT SOCIOLOGY PROFESSOR Gender Identity Female 04/05/2022 6:17 PM CDT [...] catheter every 8 (eight) weeks Infused at: [facility] (OSF order in Epic under 'Procedures' tab). [...] med refills. 45 tablet 1 06/18/2023 4 busPIRone (BUSPAR) 5 mg tabletIndications: Generalized Anxiety Disorder Take 1 tablet (5 mg total) by mouth 2 (two) times a day 60 tablet 2 07/07/2023 4 calcium citrate-vitamin D3 250 mg-5 mcg (200 unit) tablet Take 2 tablets by mouth 4 lamoTRIgine (LaMICtal) 100 mg tablet Take 1 tablet (100 mg total) by mouth 2 (two) times a day 180 tablet 1 06/24/2023 4 losartan (COZAAR) 100 mg tablet Take 1 tablet (100 mg total) by mouth daily 30 tablet 11 07/18/2023 4 losartan (COZAAR) 25 mg tablet Take [...] Procedure Name Priority Date/Time Associated Diagnosis Comments MRI BRAIN WO CONTRAST Schedule Routine, Read Routine (OP Routine) 07/11/2023 2:40 PM ADJUNCT SOCIOLOGY PROFESSOR Seizure (HCC) documented in this encounter Results * MRI Brain WO Contrast (07/11/2023 2:40 PM ADJUNCT SOCIOLOGY PROFESSOR) Anatomical Region Laterality Modality Head and Neck N/A Magnetic Resonan ce 07/11/2023 3:40 PM ADJUNCT SOCIOLOGY PROFESSOR Impressions 07/11/2023 4:17 PM ADJUNCT SOCIOLOGY PROFESSOR No MRI evidence to explain the patient's seizures. Dictated by: Marcell Cerna MD The radiology attending physician has personally reviewed this study, and had reviewed and/or edited this written report and agrees with it. Electronically signed by: Tino Rodriguez M.D. Ph.D. Narrative 07/11/2023 4:17 PM ADJUNCT SOCIOLOGY PROFESSOR EXAMINATION: Magnetic resonance imaging (MRI) of the [...] in this encounter Visit Diagnoses Diagnosis Seizure (HCC) Other convulsions documented in this encounter Care Teams Management Liaison Relationship Specialty Start Date End Date Servando Torre MD [address] [facility] [address] [place] [address] PCP - General Family Medicine 06/19/22 Mariela Denton MD [address] [facility] [address] [place] [address] Referring Physician Gastroenterology 06/19/22 Lexis Barroso OD [address] [address] Md Allergy Immunology 09/19/22 documented as of this encounter
--- OUTSIDE RECORDS SUMMARY | 2024-07-12 19:43 | XMS_ITS | Encounter Summary ---
Author Organization [facility] Healthcare Address [address] [place] [address] Care Team Providers Care Rn Lpn Lvn Name Role Phone Servando Torre MD Primary Care Provider [phone] Mariela Denton MD Unavailable [phone] Lexis Barroso OD Unavailable [phone] Reason for Visit * Reason Comments CHRISTELLE Admitted for possibl e stroke, or seizure from epilepsy, UTI wanted to take her off pravastatin and switch to rosuvastatin Encounter Details Date Type Department Care Team (Late st Contact Info) Description 06/11/2023 1:30 PM SERVICE PORTER Office Visit [facility] Primary Care at [address] [address] Servando Torre MD [address] [place] [address] [address] [place] [address] Hospital discharge follow-up (Primary Dx); UTI symptoms; Seizure (HCC) Social History Tobacco Use Types [...] on file Legal Sex Female 9:30 AM SERVICE PORTER Gender Identity Female 04/05/2022 6:17 PM CDT Sexual Orientation Straight 04/05/2022 6: 17 PM CDT documented as of this encounter Last Filed Vital Signs Vital Sign Reading Time Taken Comments Blood Pressure 130/86 06/11/2023 1:44 PM SERVICE PORTER Pulse 91 06/11/2023 1:44 PM SERVICE PORTER Temperature 36.8 ??C (98.3 ??F) 06/11/2023 1:44 PM CS T Respiratory Rate 18 06/11/2023 1:44 PM SERVICE PORTER Oxygen Saturation 95% 06/11/2023 1:44 PM SERVICE PORTER Inhaled Oxygen Concentration - - Weight 68.7 kg (151 lb 8 oz) 06/11/2023 1:44 PM SERVICE PORTER Height 157.5 cm (5' 2 ) 06/11/2023 1:44 PM SERVICE PORTER Body Mass Index 27.71 06/11/2023 1:44 PM SERVICE PORTER documented in this encounter Patient Instructions * Patient Instructions* Servando Torre MD - 06/11/2023 1:30 PM SERVICE PORTER Empiric antibiotics give there may still be infection present Continue current regimen otherwise Continue good efforts to stay hydrated, drink water Thanks for coming in today! My medical assistants and I are thankful you have trusted us with your care, and hope that you received EXCELLENT care today! Please do not hesitate to call if you have any questions or concerns at [phone]. You may receive a phone call, text, MYCHART message, or e-mail asking about your care today. We would love to hear your feedback on how EXCELLENT your care wastoday! Wishing you better health, always. Dr. Torre ICE PORTER documented in this encounter Ordered Prescriptions Prescription Sig Dispense Quantity Refills Last Filled Start Date End Date nitrofurantoin monohydrate (MACROBID) 100 mg capsuleIndications :UTI symptoms Take 1 capsule (100 mg total) by mouth 2 (two) times a day for 7 days 14 capsule 06/11/2023 3 documented in this encounter Progress Notes * Servando Torre MD - 06/11/2023 1:30 PM CST Images from the original note were not included. Transition of Care Visit Patient is seen in the office today for a transition of care visit, after a recent hospitalization.Initial phone contact was confirmed for the transition of care within two business days after discharge, and communication regarding aspects of care, education and support with activities of daily living is documented in the chart. Servando Dunlap MD have personally reviewed pertinent Hospital/ER data including Clindesk andCare Everywhere if available. This patient's discharge medication list has been reviewed and reconciled with her medication list in the office chart and has also been reviewed with patient and/or caregiver. I have noted any changes. Admission Date: 06/03 Discharge Date: 06/06 Date of Initial Post-discharge Interactive Contact: 06/06 Complexity of Medical Decision Making: moderate Metabolic Lab Results: There is no height or weight on file to calculate BMI. Glucose: Glucose Date Value Ref Range Status 03/21/2023 130 70 - 199 mg/dL Final Comment: Interpretive Data Fasting glucose >/= 126 mg/dl is diagnostic for diabetes. Fasting is defined as no caloric intake [...] Current interpretive data was last revised 2022. Lab Results Component Value Date WBC 7.0 03/21/2023 HGB 13.6 03/21/2023 HCT 43.5 03/21/2023 MCV 96.2 03/21/2023 Lab Results Component Value Date GLUCOSE 130 03/21/2023 CALCIUM 9.7 03/21/2023 SODIUM 141 03/21/2023 POTASSIUM 3.9 03/21/2023 CO2 29 03/21/2023 CHLORIDE 102 03/21/2023 BUNSER 12 03/21/2023 CREATININE 0.79 03/21/2023 Major Procedures and Tests: Major Procedures and Tests Performed During Inpatient Stay: noted for chart Studies Pending at Discharge (Includes Lab and Radiology) None Interval History: Lisa presents for follow-up after discharge from hospital. Her granddaughter is with her today. She does feel better than she did prior to entering the hospital. She denies dysuria, fever or chills.She is still a bit confused according to her granddaughter, but she has no difficulty remembering what date is today, her name, and elements on her schedule. She does have trouble remembering what happened in the hospital during her admission. She has been doing a better job hydrated since she was discharged as well. No problems updated. Current Outpatient Medications on File Prior to Visit Medication Sig Dispense Refill acetaminophen (acetaminophen Extra Strength) 500 mg tablet Take 1 tablet (500 mg total) by mouth every 6 (six) hours as needed acetaminophen-codeine (TYLENOL with CODEINE #3) 300-30 mg per tablet 1 tablet EVERY 6 HOURS NEEDED (route: oral) lamoTRIgine (LaMICtal) 25 mg tablet Take 1 tablet (25 mg total) by mouth daily metoprolol tartrate (LOPRESSOR) 50 mg immediate release tablet Take 1 tablet (50 mg total) by mouth2 (two) times a day tiZANidine (ZANAFLEX) 2 mg tablet Take 1 tablet (2 mg total) by mouth every 6 (six) hours as needed amLODIPine (NORVASC) 5 mg tablet Take 1 tablet (5 mg total) by mouth daily 90 tablet 1 aspirin 81 mg enteric coated tablet Take 1 tablet (81 mg total) by mouth daily azaTHIOprine (IMURAN) 100 mg tablet Take 1 tablet (100 mg total) by mouth daily Safety labs required every 3 months for med refills, next labs due by the end of 05/2023. 90 tablet 0 calcium citrate-vitamin D3 250 mg-5 mcg (200 unit) tablet Take 2 tablets by mouth cholecalciferol (VITAMIN D-3) 2000 unit tablet Take 1 tablet (2,000 Units total) by mouth daily LowVitamin D level from 05/30/2022. 90 tablet 3 ferrous sulfate ER 324 mg (65 mg iron) EC tablet Take 1 tablet (324 mg total) by mouth daily with breakfast 90 tablet 1 lamoTRIgine (LaMICtal) 100 mg tablet Take 1 tablet (100 mg total) by mouth 2 (two) times a day 180 tablet 3 mesalamine (APRISO) 0.375 gram 24 hr capsule Take 4 capsules (1.5 g total) by mouth daily 120 capsule 11 metFORMIN XR (GLUCOPHAGE XR) 750 mg [...] total) by mouth daily 90 tablet 1 pravastatin (PRAVACHOL) 40 mg tablet Take 1 tablet (40 mg total) by mouth daily 90 tablet 1 vedolizumab (ENTYVIO) 300 mg recon soln Infuse 5 mL (300 mg total) into a venous catheter every 8 (eight) weeks Infused at: [facility] (OSF order in Epic under 'Procedures' tab). 1 each 5 [DISCONTINUED] acetaminophen-codeine (TYLENOL with CODEINE #3) 300-30 mg per tablet Take 1 tablet by mouth every 6 (six) hours as needed for pain 21 tablet 0 [DISCONTINUED] Lactobacillus acidophilus (PROBIOTIC ORAL) Take by mouth [DISCONTINUED] Pain Reliever ES,acetaminophn, 500 mg tablet Take 2 tablets (1,000 mg total) by mouth every 8 (eight) hours [DISCONTINUED] Saccharomyces boulardii (FLORASTOR) 250 mg capsule Take by mouth No current facility-administered medications on file prior to visit. I, Servando Torre MD have personally reviewed pertinent inpatient and/or ED records, including discharge medications and Clindesk if applicable. This patient's discharge medication list has been reviewed and reconciled with her outpatient medication list and has also been reviewed with patient and/or caregiver. I have noted any changes. Review of Systems: Review of Systems Constitutional: Negative. HENT: Negative. Respiratory: Negative for cough, shortness of breath and wheezing. Cardiovascular: Negative for chest pain and palpitations. Gastrointestinal: Negative. Genitourinary: Negative. Musculoskeletal: Negative for neck pain. Neurological: Negative for headaches. Psychiatric/Behavioral: Positive for decreased concentration. Physical Exam: BP 130/86 (BP Location: Left arm, Patient Position: Sitting) Pulse 91 Temp 36.8 ??C (98.3 ??F) (Temporal) Resp 18 Ht 157.5 cm (5' 2 ) Wt 68.7 kg (151 lb 8 oz) SpO2 95% BMI 27.71 kg/m?? Physical Exam Vitals reviewed. Constitutional: Appearance: She is overweight. HENT: Head: Normocephalic and atraumatic. Cardiovascular: Rate and Rhythm: Normal rate and regular rhythm. Pulmonary: Breath sounds: No wheezing, rhonchi or rales. Abdominal: Tenderness: There is no right CVA tenderness or left CVA tenderness. Musculoskeletal: Right lower leg: No edema. Left lower leg: No edema. Neurological: General: No focal deficit present. Mental Status: She is alert. Assessment/Plan Diagnoses and all orders for this visit: Hospital discharge follow-up (Primary) Comments: She will keep neurology appointment next week CT did not show acute stroke, she did not have high-grade carotid stenosis Seizure medications adjust Assessment & Plan: I have reviewed the hospital record, medications, and relevant testing from Lisa Allen's recent admission. Complications and discharge plan have been noted, reviewed. Post-discharge testing has been ordered. UTI symptoms Comments: Urinalysis shows possible r residual infection Nitrofurantoin empiric, sending for culture Orders: - Urine culture Urine, clean voided; Future - POCT UA, AUTO W/O SCOPE - nitrofurantoin monohydrate (MACROBID) 100 mg capsule; Take 1 capsule (100 mg total) by mouth 2 (two) times a day for 7 days Seizure (HCC) Comments: No seizure activity since hospital stay Her neurologist has adjusted her seizure medication, she is tolerating that Other orders - Flu Vaccine Quad High Dose PF 65Y+ IM - Fluzone High Dose Quad Coordination of Home care services and follow-up with specialist appointments confirmed. Instructions have been provided to and reviewed with the patient/health care administrator prior to discharge. IServando MD have personally reviewed pertinent Hospital/ER data including Clindesk andCare Everywhere if available. This patient's discharge medication list has been reviewed and reconciled with her medication list in the office chart and has also been reviewed with patient and/or caregiver. I have noted any changes. Servando Torre MD ICE PORTER documented in this encounter Miscellaneous Notes * Assessment & Plan Note - Servando Torre MD - 06/11/2023 1:42 PM SERVICE PORTER Associated Problem(s): Hospital discharge follow-up (Resolved 08/07/2023) I have reviewed the hospital record, medications, and relevant testing from Lisa Allen's recent admission. Complications and discharge plan have been noted, reviewed. Post-discharge testing has been ordered. ICE PORTER documented in this encounter Plan of Treatment Not on file documented as of this encounter Procedures Procedure Name Priority Date/Time Associated Diagnosis Comments POCT URINALYSIS, AUTO W/O SCOPE Routine 06/11/2023 2:26 PM SERVICE PORTER UTI symptoms documented in this encounter Results * (ABNORMAL) POCT UA, AUTO W/O SCOPE (06/11/2023 2:26 PM SERVICE PORTER) Color, Urine, POC Yellow Clarity, ur, POC Clear Clear Glucose, ur, POC Negative Negative MG/DL Bilirubin, ur, POC Negative Negative, Small, Moderate, Large Ketones, ur, POC Negative Negative Specific [place], POC 1.015 1.003 - 1.030 Blood, ur, POC Trace(A) Negative pH, ur, POC 7.0 5.0 - 8.0 Protein, ur, POC Negative Negative Urobilinogen, Urine, POC 0.2 mg/dL Leukocytes, ur, POC Trace(A) Negative Nitrite, ur, POC Negative Negative Appearance, fld Clear Clear Urine, clean voided 06/11/2023 2:26 PM SERVICE PORTER Servando Torre MD POINT OF CARE TEST ORDERABL ES Final Result * Urine culture Urine, clean voided (06/11/2023 2:26 PM SERVICE PORTER) Report Final Report: Less than 100,000 colonies/mL (clinically insignificant growth based on current clinical standards) AILEEN MATTHEW Comment:Testing performed by : [facility], [address] [place]., [address] Organism (CLINICALLY INSIGNIFICANT GROWTH AILEEN Urine, clean voided 06/11/2023 2:26 PM SERVICE PORTER 06/12/2023 12:13 PM SERVICE PORTER Narrative AILEEN MATTHEW - 06/13/2023 5:28 PM SERVICE PORTER Testing performed by [facility] ([phone]) Servando Torre MD LAB MICROBIOLOGY - GENERAL ORDERABLES Final Result Performing Organization Address City/State/ZIP Co me Phone Number AILEEN [phone] [address] [place] [address] documented in this encounter Visit Diagnoses Diagnosis Hospital discharge follow-up- Primary Other follow-up examination UTI symptoms Seizure (HCC) Other convulsions UTI symptoms documented in this encounter Discontinued Medications Medication Sig Discontinue Reason Start Date End Da te Lactobacillus acidophilus (PROBIOTIC ORAL) Take by mouth Duplicate order 06/11/2023 Saccharomyces boulardii (FLORASTOR) 250 mg capsule Take by mouth Duplicate order 06/11/2023 Pain Reliever ES,acetaminophn, 500 mg tablet Take 2 tablets (1,000 mg total) by mouth every 8 (eight) hours Duplicate order 06/11/2023 acetaminophen-codeine (TYLENOL with CODEINE #3) 300-30 mg per tablet Take 1 tablet by mouth every 6 (six) hours as needed for pain Duplicate order 02/20/2023 06/11/2023 documented as of this encounter Historical Medications * This list may reflect changes made after this encounter. lamoTRIgine (LaMICtal) 25 mg tablet Take 1 tablet (25 mg total) by mouth daily 05/12/2023 06/24/2023 metoprolol tartrate (LOPRESSOR) 50 mg immediate release tablet Take 1 tablet (50 mg total) by mouth 2 (two) times a day 02/20/2023 06/26/2023 tiZANidine (ZANAFLEX) 2 mg tablet Take 1 tablet (2 mg total) by mouth every 6 (six) hours as needed 12/31/2022 06/27/2023 acetaminophen (acetaminophen Extra Strength) 500 mg tablet Take 1 tablet (500 mg total) by mouth every 6 (six) hours as needed 09/30/2022 07/08/2024 acetaminophen-cod eine (TYLENOL with CODEINE #3) 300-30 mg per tablet 1 tablet EVERY 6 HOURS NEEDED (route: oral) 02/20/2023 06/26/2023 added in this encounter Orders Immunization/Injection Count Last Ordered Date First Ordered Date FLU VACCINE HIGH DOSE QUAD P F 65Y+ IM - FLUZONE HIGH DOS 1 06/11/2023 documented in this encounter Care Teams Rn Lpn Lvn Relationship Specialty Start Date End Date Servando Torre MD [facility] [address] PCP - General Family Medicine 06/19/22 Mariela Denton MD [facility] [address] [place] [address] Referring Physician Gastroenterology 06/19/22 Lexis Barroso OD [address] [place] [id number] Turkey Picker 09/19/22 documented as of this encounter
--- OUTSIDE RECORDS SUMMARY | 2024-07-12 19:43 | XMS_ITS | Encounter Summary ---
Author Organization [facility] Healthcare Address [address] [place] [address] Care Team Providers Care Education Liaison Name Role Phone Servando Torre MD Primary Care Provider [phone] Mariela Denton MD Unavailable [phone] [phone] Lexis Barroso OD Unavailable [phone]- [phone] Encounter Details Date Type Department Care Team (Latest Contact Info) Description 09/30/2023 2:03 PM HOT END OPERATOR - 09/30/2023 11:59 PM HOT END OPERATOR Hospital Encounter [facility] [id number] [place] [id number] Hypertension associated with type 2 diabetes mellitus (HCC); Gastroesophageal reflux disease without esophagitis; Mixed hyperlipidemia Discharge Disposition: Discharge to home or self [...] on file Legal Sex Female 9:30 AM HOT END OPERATOR Gender Identity Female 04/05/2022 6:17 PM [...] 08/27/2023 5 cholecalciferol (VITAMIN D-3) 2000 unit tabletIndications: Low [...] with glucose monitor and strip 100 each 08/16/2022 OneTouch Ultra Test stripIndications:P rediabetes 1 each by other route daily To check blood glucose 50 each 11 08/16/2022 vedolizumab (ENTYVIO) 300 mg recon solnIndications:Ch ronic ulcerative colitis, unspecified complication (HCC) Infuse 5 mL (300 mg total) into a venous catheter every 8 (eight) weeks Infused at: [facility] ([facility] order in Epic under 'Procedures' tab). 1 each 5 04/29/2023 acetaminophen (acetaminophen Extra Strength) 500 mg tablet Take 1 tablet (500 mg total) by mouth every 6 (six) hours as needed 09/30/2022 4 azaTHIOprine (IMURAN) 50 mg tabletIndications: Ulcerative [...] 60 tablet 2 07/07/2023 4 lamoTRIgine (LaMICtal) 100 mg tablet Take 1 tablet (100 mg total) by mouth 2 (two) times a day 180 tablet 1 06/24/2023 4 losartan (COZAAR) 100 mg tablet Take 1 tablet (100 mg total) by mouth daily 30 tablet 11 07/18/2023 4 magnesium carbonate (MAGONATE) liquid (54 mg of elemental magnesium/5 mL) Take 10 mL (108 mg of elemental magnesium total) by mouth nightly Take 2 Tablets (235mg) nightly 300 mL 11 08/27/2023 4 mesalamine (APRISO) 0.375 gram 24 hr capsuleIndications :Ulcerative Colitis Take 2 capsules by mouth in the morning and 2 capsules in the evening 120 capsule 2 08/27/[address] (PROTONIX) 40 mg EC tablet Take 1 tablet (40 mg total) by mouth daily 90 tablet 3 08/27/2023 4 pravastatin (PRAVACHOL) 40 mg tablet Take 1 tablet (40 mg total) by mouth nightly 90 tablet 3 08/27/2023 4 documented as of this encounter Discharge Disposition Disposition Code Departure Means Destination Discharge to home or self care documented in this encounter Plan of Treatment Not on file documented as of this encounter Procedures Procedure Name Priority Date/Time Associated Diagnosis Comments EGFR Routine 09/30/2023 2:03 PM HOT END OPERATOR Hypertension associated with type 2 diabetes mellitus (HCC) DIFFERENTIAL AUTO Routine 09/30/2023 2:0 3 PM HOT END OPERATOR Hypertension associated with type 2 diabetes mellitus (HCC) Gastroesophageal reflux disease without esophagitis THYROID FUNCTION CASCADE Routine 09/30/2023 2:03 PM HOT END OPERATOR Hypertension associated with type 2 diabetes mellitus (HCC) CBC WITH AUTO DIFFERENTIAL Routine 09/30/2023 2:03 PM HOT END OPERATOR Hypertension associated with type 2 diabetes mellitus (HCC) Gastroesophageal reflux disease without esophagitis HEMOGLOBIN A1C Routine 09/30/2023 2:03 PM HOT END OPERATOR Hypertension associated with type 2 diabetes mellitus (HCC) LIPID PANEL Routine 09/30/2023 2:03 PM HOT END OPERATOR Mixed hyperlipidemia COMPREHENSIVE METABOLIC PANEL Routine 09/30/2023 2:03 PM HOT END OPERATOR Hypertension associated with type 2 diabetes mellitus (HCC) documented in this encounter Results * eGFR (09/30/2023 2:03 PM HOT END OPERATOR) [facility] eGFR 64 mL/min/1. 73 m2 [facility] MATTHEW Comment: Interpretive Data Reference Interval Normal ?>/= [...] interpretive data was last reviewed 2021. Blood 09/30/2023 2:03 PM HOT END OPERATOR 09/30/2023 8:19 PM HOT END OPERATOR us Servando Torre MD LAB BLOOD ORDERABLES Final Result [facility] [id number] Department [place] [address] * Differential, auto (09/30/2023 2:03 PM HOT END OPERATOR) Neutrophil abs 5.7 1.5 - 6.5 K/cumm [facility] Imm gran abs 0.0 0.0 - 0.1 K/cumm [facility] Lymphocyte abs 1.9 0.8 - 3.3 K/cumm [facility] Monocyte abs 0.8 0.2 - 0.8 K/cumm [facility] Eosinophil abs 0.2 0.0 - 0.5 K/cumm [facility] Basophil abs 0.0 0.0 - 0.1 K/cumm [facility] Neutrophil pct 66.1 % [facility] Comment: Interpretive Data Percent cell count reference ranges are not reported, since discordance with absolute values may lead to misinterpretation of CBC data. Current Interpretive Data was last revised on 2017. Imm gran pct 0.3 % [facility] Comment: Interpretive Data Percent cell count reference ranges are not reported, since discordance with absolute values may lead to misinterpretation of CBC data. Current Interpretive Data was last revised on 2017. Lymphocyte pct 21.7 % [facility] Comment: Interpretive Data Percent cell count reference ranges are not reported, since discordance with absolute values may lead to misinterpretation of CBC data. Current Interpretive Data was last revised on 2017. Monocyte pct 8.8 % [facility] Comment: Interpretive Data Percent cell count reference ranges are not reported, since discordance with absolute values may lead to misinterpretation of CBC data. Current Interpretive Data was last revised on 2017. Eosinophil pct 2.6 % [facility] Comment: Interpretive Data Percent cell count reference ranges are not reported, since discordance with absolute values may lead to misinterpretation of CBC data. Current Interpretive Data was last revised on 2017. Basophil pct 0.5 % [facility] Comment: Interpretive Data Percent cell count reference ranges are not reported, since discordance with absolute values may lead to misinterpretation of CBC data. Current Interpretive Data was last revised on 2017. Blood 09/30/2023 2:03 PM HOT END OPERATOR 09/30/2023 8:09 PM HOT END OPERATOR Servando Torre MD LAB BLOOD ORDERABLES Final Result Performing Organization Address [facility] Co de Phone Number AILEEN [address] [place] [place] [address] * Thyroid Function [place] (09/30/2023 2:03 PM HOT END OPERATOR) TSH 0.72 0.30 - 4.20 mcIUnit/mL [facility]LEEN Blood 09/30/2023 2:03 PM HOT END OPERATOR 09/30/2023 8:09 PM HOT END OPERATOR Result [facility] Servando Torre MD LAB BLOOD ORDERABLES Final Result Performing Organization Address [facility] Co de Phone Number [facility] [address] Department [place] [employer] [place] [address] * (ABNORMAL) Hemoglobin A1c (09/30/2023 2:03 PM HOT END OPERATOR) Hgb A1C 6.3(H) 4.0 - 5.6 % [facility] Estimated Average Glucose 134 mg/dL [facility]LEEN Comment: The ADA recommends reporting an estimated Average Glucose (eAG) with all Hemoglobin A1c results using the equation derived from a study of 507 normal and diabetic adults. ??Minority populations were underrepresented and children were not included. ?? (Diabetes Care 31:3694-3029, 2008). ??The eAG is not equivalent to a fasting glucose. Blood 09/30/2023 2:03 PM HOT END OPERATOR 09/30/2023 8:09 PM HOT END OPERATOR us Servando Torre MD LAB BLOOD ORDERABLES Final Result Performing Organization Address City/State/ZIP [facility] Phone Number AILEEN [phone] Department [place] [address] * Lipid panel (09/30/2023 2:03 PM HOT END OPERATOR) Cholesterol 191 30 - 199 mg/dL [facility] MATTHEW Comment: Interpretive Data Ages [...] revised on 2018. Triglycerides 136 <=149 mg/dL [facility] MATTHEW Comment: Interpretive Data [...] last revised on 2018. Chol/HDL ratio 3 [facility] Blood 09/30/2023 2:03 PM HOT END OPERATOR 09/30/2023 8:09 PM HOT END OPERATOR us Servando Torre MD LAB BLOOD ORDERABLES Final Result [facility] [address] Department [place] [address] * (ABNORMAL) Comprehensive metabolic panel (09/30/2023 2:03 PM HOT END OPERATOR) Sodium 141 135 - 145 mmol/L [facility] Potassium, pl 4.5 3.3 - 4.9 mmol/L [facility] Chloride 103 97 - 110 mmol/L [facility] CO2 26 22 - 32 mmol/L [facility] Anion gap 12 2 - 15 mmol/L [facility] BUN 22 6 - 25 mg/dL [facility] Creatinine 0.91 0.60 - 1.10 mg/dL [facility] Glucose 97 70 - 199 mg/dL [facility] Comment: Interpretive [...] Units/L [facility] Blood 09/30/2023 2:03 PM HOT END OPERATOR 09/30/2023 8:09 PM HOT END OPERATOR Servando Torre MD LAB [place] [address] [address] Department [place] [address] * (ABNORMAL) CBC with auto differential (09/30/2023 2:03 PM HOT END OPERATOR) WBC 8.6 3.8 - 9.9 K/cumm [facility] [...] K/cumm [facility] Blood 09/30/2023 2:03 PM HOT END OPERATOR 09/30/2023 8:09 PM HOT END OPERATOR Servando Torre MD LAB BLOOD ORDERABLES Final Result [facility] [id number] Department [place] [address] documented in this encounter Visit Diagnoses Diagnosis Hypertension associated with type 2 diabetes mellitus (HCC) Gastroesophageal reflux disease without esophagitis Esophageal reflux Mixed hyperlipidemia documented in this encounter Care Teams Education Liaison Relationship Specialty Start Date End Date Servando Torre MD [facility] [address] PCP - General Family Medicine 06/19/22 Mariela Denton MD [facility] [address] [facility] [facility] [address] [place] [address] Referring Physician Gastroenterology 06/19/22 Lexis Barroso OD [address] [place] [id number] [employer] Research Worker 09/19/22 documented as of this encounter
--- OUTSIDE RECORDS SUMMARY | 2024-07-12 19:43 | XMS_ITS | Encounter Summary ---
Author Organization [facility] Healthcare Address [address] [place] [address] Care Team Providers Care Traffic Circuit Engineer Name Role Phone Servando Torre MD Primary Care Provider Mariela Denton MD Unavailable [phone] Lexis Barroso OD Unavailable [phone]- [phone] Reason for Visit * Reason Onset Date Comments Recommendation Request 01/20/2024 Encounter Details Date Type Department Care Team (Late st Contact Info) Description 01/20/2024 Telephone [facility] Medical Group Primary Care at [address] [address] Servando Torre MD [address] [place] [address] [address] [place] [address] Recommendation Request Social History Tobacco Use Types Packs/Day [...] on file 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 I think we used the wrong diagnoses. It wasn't that specific. It vaibhav subcutaneous cyst, but we'll have ortho check it out first. * Telephone Encounter - Regina Toscano MA - 01/21/2024 11:06 AM CDT Please review * Telephone Encounter - Annel Ruiz - 01/20/2024 3:07 PM CDT Medical Question/Miscellaneous Caller???s Concern: [facility] does not deal with cysts in the knee. Patient will have to go to Ortho. Does message need to be routed? Yes-Action Needed documented in this encounter Plan of Treatment Not on file documented as of this encounter Visit Diagnoses Not on filedocumented in this encounter Care Teams Traffic Circuit Engineer Relationship Specialty Start Date End Date Servando Torre MD [address] [address] PCP - General Family Medicine 06/19/22 Mariela Denton MD [address] [place] [address] Referring Physician Gastroenterology 06/19/22 Lexis Barroso OD [address] [place] [id number] Roll Over Press Operator 09/19/22 documented as of this encounter
--- OUTSIDE RECORDS SUMMARY | 2024-07-12 19:43 | XMS_ITS | Encounter Summary ---
Author Organization [facility] Healthcare Address [address] [place] [address] Care Team Providers Care Developer Designer Name Role Phone Servando Torre MD Primary Care Provider [phone] Mariela Denton MD Unavailable [phone] [phone] Lexis Barroso OD Unavailable [phone]- [phone] Reason for Referral * Physical Therapy (Routine) - Closed Specialty Diagnoses / Procedures Referred By Angel braswell Referred To Contact Physical Therapy Diagnoses Chronic pain of both knees Primary osteoarthritis of both knees Leg weakness, bilateral Weakness of both hips Riri Gonzalez PA [address] [place] [address] [address] Phone: tel: fax: External Order Referral ID Status Reason Start Date Expiration Date V isits Requested Visits Authorized [id number] Closed Specialty Services Required 08/28/2023 09/26/2024 24 24 Question Answer PTRFR PT Evaluate and Treat Therapy options discussed with patient? Yes Location provided for therapy services is: Patient requested/Patient preferred Please select the performing region: External Order [171] # of visits: 24 Comments Eval/treat bilateral LE/hip weakness contributing to lack of mobility and increased knee OA symptoms (worse in patellofemoral joint) HEP instruction Therapist to determine frequency/duration of treatment LE DISTRIBUTOR * Diagnostic Imaging (Routine) - Closed Specialty Diagnoses / Procedures Referred By Angel braswell Referred To Contact Diagnoses Chronic pain of both knees Procedures XR Pelvis 1 or 2 Views Riri Gonzalez PA [address] [facility] [facility] [address] [place] [address] Phone: tel: fax: [facility] Referral ID Status Reason Start Date Expiration Date Visits Re quested Visits Authorized [id number] Closed 08/28/2023 09/26/2024 1 1 LE DISTRIBUTOR Reason for Visit * Reason Comments Pain Pain * Consultation (Routine) - Closed Specialty Diagnoses / Procedures Referred By Angel braswell Referred To Contact Orthopedic Surgery Diagnoses Chronic pain of both knees Olga Hernandez NP Phone: tel: fax: Riri Gonzalez PA [address] [place] [address] [address] [place] [address] Phone: tel: fax: Referral ID Status Reason Start Date Expiration Date V isits Requested Visits Authorized [id number] Closed Specialty Services Required 08/07/2023 09/05/2024 1 1 Encounter Details Date Type Department Care Team (Late st Contact Info) Description 08/28/2023 11:15 AM SAMPLE DISTRIBUTOR Office Visit [facility] Orthopedic and Sports Medicine [address] [place] [id number] Riri Gonzalez PA [address] [place] [address] [address] [place] [address] Primary osteoarthritis of both knees (Primary Dx); Leg weakness, bilateral; Chronic pain of both knees; Weakness of both hips Social History Tobacco Use Types Packs/Day Years Used Date Smoking Tobacco: Never Passive Smoke Exposure: Never Smokeless Tobacco: Never AUDIT-C Answer Date Recorded Q1: How often do you have a drink containing alcohol? Never 06/26/2023 Q2: How many drinks containi ng alcohol do you have on a typical day when you are drinking? Patient does not drink 11/30/202 3 Q3: How often do you have si [...] on file Legal Sex Female 9:30 AM SAMPLE DISTRIBUTOR Gender Identity Female 04/05/2022 6:17 PM CDT Sexual Orientation Straight 04/05/2022 6: 17 PM CDT documented as of this encounter Last Filed Vital Signs Vital Sign Reading Time Taken Comments Blood Pressure 136/73 08/28/2023 11:04 AM SAMPLE DISTRIBUTOR Pulse 69 08/28/2023 11:04 AM SAMPLE DISTRIBUTOR Temperature - - Respiratory Rate - - Oxygen Saturation - - Inhaled Oxygen Concentration - - Weight 65.6 kg (144 lb 11.2 oz) 024 11:04 AM SAMPLE DISTRIBUTOR Height 157.5 cm (5' 2 ) 08/28/2023 11:0 4 AM SAMPLE DISTRIBUTOR Body Mass Index 26.47 08/28/2023 11:04 AM SAMPLE DISTRIBUTOR documented in this encounter Patient Instructions * Patient Instructions* Riri Gonzalez PA - 08/28/2023 11:15 AM SAMPLE DISTRIBUTOR Over the counter medications to try: Topical Voltaren (diclofenac 1%); may use 3-4x daily with caution Topical lidocaine creams or patches (4% OTC) Tylenol up to 3000 mg daily LE DISTRIBUTOR documented in this encounter Progress Notes * Riri Gonzalez PA - 08/28/2023 11:15 AM CST Images from the original note were not included. NEW PATIENT/NEW COMPLAINT VISIT Subjective CHIEF COMPLAINT She had concerns including Pain of the Left Knee and Pain of the Right Knee. HISTORY OF PRESENT ILLNESS Patient here with complaints of bilateral knee pain. She denies any acute injuries or trauma. Symptoms have been present for approximately 6 months. She is difficulty getting up and down from a seated position. Symptoms are predominantly activity based and she denies any pain at rest or disturbancewith her sleep She is accompanied by her granddaughter today, who helps with her caretaking. She is currently residing in assisted living and does have moments of forgetfulness throughout our conversation. Patient and granddaughter state that this has been occurring over the last several months Pain Assessment Pain Assessment: 0-10 Pain Score: 6 Pain Location: Knee Pain Orientation: Right, Left Pain Descriptors: Aching Pain Frequency: Constant/continuous Pain Onset: Progressive Clinical Progression: Not changed Aggravating Factors: Standing, Walking, Stairs Result of Injury: No Work-Related Injury: No Pain Interventions: Home medication PAST MEDICAL HISTORY She has a past medical history of Anemia, Broken ribs, Detached retina, Diabetes mellitus ([facility]), GERD (gastroesophageal reflux disease), Gout, Hyperlipidemia, Hypertension, 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 PAST SURGICAL HISTORY She has a past surgical history that includes Partial hip arthroplasty (Left, 2014); Retinal detachment surgery (Right); Femur fracture surgery (Left, 2010); and Colonoscopy. MEDICATIONS She has a current medication list which includes the following prescription(s): acetaminophen, amlodipine, aspirin, benzonatate, buspirone, calcium citrate- vitamin d3, cholecalciferol, ferrous sulfate er, lamotrigine, losartan, magnesium carbonate, mesalamine, metformin xr, metoprolol tartrate, mult ivitamin, onetouch delica plus lancet, onetouch ultra test, pantoprazole dr, pravastatin, vedolizumab, and azathioprine. ALLERGIES She is allergic to penicillins. SOCIAL HISTORY She reports that she has never smoked. She has never been exposed to tobacco smoke. She has never used smokeless tobacco. She reports that she does not use drugs. Patient denies consuming alcoholic drinks. FAMILY HISTORY Family History Problem Relation Age of Onset Atrial fibrillation Mother Breast cancer Mother Stroke Mother Other (afib) Mother Cancer Father Alzheimer's disease Father 70 REVIEW OF SYSTEMS Review of Systems Constitutional: Negative for chills, fatigue and fever. HENT: Negative for dental problem, hearing loss, nosebleeds, tinnitus, trouble swallowing and voicechange. Eyes: Negative for pain and visual disturbance. Respiratory: Positive for cough and shortness of breath. Negative for chest tightness. Cardiovascular: Negative for chest pain, palpitations and leg swelling. Gastrointestinal: Negative for abdominal pain, constipation, diarrhea, nausea and vomiting. Genitourinary: Negative for difficulty urinating, dysuria, frequency and urgency. Musculoskeletal: Negative for myalgias. Skin: Negative for rash. Neurological: Positive for headaches. Negative for dizziness and light-headedness. Psychiatric/Behavioral: The patient is not nervous/anxious. Objective PHYSICAL EXAM BP 136/73 Pulse 69 Ht 157.5 cm (5' 2 ) Wt 65.6 kg (144 lb 11.2 oz) BMI 26.47 kg/m?? Right knee Inspection The patient has [...] side of their body. REVIEW OF X-RAYS/STUDIES/LABS XR Knee Bilateral 4 or More Views Weightbearing views of the bilateral knee are reviewed and demonstrate no acute fractures or destructive osseous lesions. Tricompartmental degenerative changes present with joint space narrowing, osteophyte formation, and subchondral sclerosis. Findings severe within the patellofemoral compartment with thinning of the lateral patella facet and associated dysplastic changes of the lateral femoral condyle XR Pelvis 1 or 2 Views Radiographs of the pelvis reviewed interpreted. No acute fractures noted. Status post left total hip arthroplasty changes are appreciated with no evidence of periprosthetic loosening or failure. Postsurgical fracture fixation hardware is also noted along the proximal femur diaphysis. 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 Degenerative changes of the visualized lumbar spine are noted along with moderate degenerative changes of the right femoral acetabular joint.. Assessment/Plan Lisa was seen today for pain and pain. Diagnoses and all orders for this visit: Primary osteoarthritis of both knees - Ambulatory referral order to Physical Therapy -; Future Leg weakness, bilateral - Ambulatory referral order to Physical Therapy -; Future Chronic pain of both knees - XR Pelvis 1 or 2 Views; Future - XR Knee Bilateral 4 or More Views; Future - Ambulatory referral to Orthopedic Surgery - Ambulatory referral order to Physical Therapy -; Future Weakness of both hips - Ambulatory referral order to Physical Therapy -; Future No orders of the defined types were placed in this encounter. Plan Discussed clinical exam and x-ray findings with the patient. We discussed various conservative treatment options in detail. This may include corticosteroid injections, viscosupplementation injections, physical therapy, NSAIDs, dyxw-egd-pedxpys analgesics, and/or topical creams/analgesics. Likely, most of her complaints are due to advanced patellofemoral arthritis along with age-related weakness of the bilateral lower extremities. She has not a candidate for surgical intervention. Therefore we discussed a stepwise approach to managing her symptoms conservatively. She would like to try oxmi-yvf-ovcxram topical agents, use of Tylenol, and additional physical therapy to address her symptoms. I recommend OTC Voltaren 3-4 times daily, topical lidocaine 4%, and a PT order was provided. She will do this through her assisted living. Follow-up in 1 month to reassess. If continued pain, may further consider a corticosteroid injection which was offered and declined today. All questions were answered. Patient expressed full understanding and agreement of plan. CHAMP Lombardo Cosigned by Samy Boston MD at 09/02/2023 9:04 AM SAMPLE DISTRIBUTOR LE DISTRIBUTOR LE DISTRIBUTOR documented in this encounter Plan of Treatment Scheduled Referrals Name Type Priority Associated Diagnoses Orde r Schedule Ambulatory referral order to Physical Therapy - Outpatient Referral Routine Chronic pain of both knees Primary osteoarthritis of both knees Leg weakness, bilateral Weakness of both hips Expected: 09/11/2023 (Approximate), Expires: 08/28/2024 documented as of this encounter Results * XR Knee Bilateral 4 or More Views (08/28/2023 11:01 AM SAMPLE DISTRIBUTOR) Anatomical Region Laterality Modality Lower Extremities, Knee Digital Radiography Narrative 08/28/2023 1:05 PM SAMPLE DISTRIBUTOR Weightbearing views of the bilateral knee are reviewed and demonstrate no acute fractures or destructive osseous lesions. ??Tricompartmental degenerative changes present with joint space narrowing, osteophyte formation, and subchondral sclerosis. ??Findings severe within the patellofemoral compartment with thinning of the lateral patella facet and associated dysplastic changes of the lateral femoral condyle Riri OAKES IMG XR PROCEDURES Final Result * XR Pelvis 1 or 2 Views (08/28/2023 11:01 AM SAMPLE DISTRIBUTOR) Anatomical Region Laterality Modality Body, Pelvis N/A Digital Radiogra phy Narrative 08/28/2023 1:04 PM SAMPLE DISTRIBUTOR Radiographs of the pelvis reviewed interpreted. ??No acute fractures noted. Status post left total hip arthroplasty changes are appreciated with no evidence of periprosthetic loosening or failure. ??Postsurgical fracture fixation hardware is also noted along the proximal femur diaphysis. ?? 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 ?? Degenerative changes of the visualized lumbar spine are noted along with moderate degenerative changes of the right femoral acetabular joint.. Riri OAKES IMG XR PROCEDURES Final Result documented in this encounter Visit Diagnoses Diagnosis Primary osteoarthritis of both knees- Primary Leg weakness, bilateral Muscle weakness (generalized) Chronic pain of both knees Weakness of both hips Chronic pain of both knees Chronic pain of both knees documented in this encounter Orders Outpatient Referral Count Last Ordered Date Fir st Ordered Date AMB REFERRAL TO ORTHOPEDIC SURGERY 1 2023 documented in this encounter Care Teams Developer Designer Relationship Specialty Start Date End Date Servando Torre MD [facility] [address] PCP - General Family Medicine 06/19/[address] [facility] [address] [place] [address] Referring Physician Gastroenterology 06/19/22 Lexis Barroso OD [address] [place] [address] [employer] 09/19/22 documented as of this encounter
--- OUTSIDE RECORDS SUMMARY | 2024-07-12 19:43 | XMS_ITS | Encounter Summary ---
Author Organization [facility] Healthcare Address [address] [place] [address] Care Team Providers Care Accounts Clerk Name Role Phone Servando Torre MD Primary Care Provider [phone]- [phone] Mariela Denton MD Unavailable [phone] [phone] Lexis Barroso OD Unavailable [phone]- [phone] Reason for Referral * Consultation (Routine) - Closed Specialty Diagnoses / Procedures Referred By Contclemencia t Referred To Contact General Surgery Diagnoses Cyst of anterior horn of lateral meniscus of right knee Olag Hernandez NP Phone: tel: fax: Marcell Brown MD [address] [place] [address] [address] Phone: tel: fax: Referral ID Status Reason Start Date Expiration Date V isits Requested Visits Authorized [id number] Closed Specialty Services Required 01/19/2024 02/17/2025 1 1 Question Answer Please select the performing region: [facility] [[id number]] Please select the performing department: [facility] SURGERY [[id number]] Comments [place] location Reason for Visit * Reason Comments Mass Pt is c/o 'bump' on right knee. It is painful. Appeared about 1 wk ago. No injury Encounter Details Date Type Department Care Team (Late st Contact Info) Description 01/19/2024 2:30 PM CDT Office Visit [facility] Primary Care at [address] [phone] Olga Hernandez, CONSTANZA [address] [facility] [address] [place] [address] Cyst of anterior horn of lateral meniscus of right knee (Primary Dx) Social History Tobacco Use Types [...] on file Legal Sex Female 9:30 AM LAW FIRM RECEPTIONIST Gender Identity Female 04/05/2022 6:17 PM CDT Sexual Orientation Straight 04/05/2022 6: 17 PM CDT documented as of this encounter Last Filed Vital Signs Vital Sign Reading Time Taken Comments Blood Pressure 120/78 01/19/2024 2:39 PM CDT Pulse 65 01/19/2024 2:39 PM CDT Temperature 36.8 ??C (98.2 ??F) 01/19/2024 2:39 PM CD T Respiratory Rate - - Oxygen Saturation 98% 01/19/2024 2:39 PM CDT Inhaled Oxygen Concentration - - Weight 68.2 kg (150 lb 4.8 oz) 01/19/2024 2:39 P M CDT Height 157.5 cm (5' 2 ) 01/19/2024 2:39 PM CDT Body Mass Index 27.49 01/19/2024 2:39 PM CDT documented in this encounter Patient Instructions * Patient Instructions* Olga Hernandez NP - 01/19/2024 2:30 PM CDT My medical pathology teacher and I are thankful you have trusted us with your care, and hope that you received EXCELLENT care ! Please do not hesitate to call if you have any questions or concerns at documented in this encounter Progress Notes * Olga Hernandez NP - 01/19/2024 2:30 PM CDT Images from the original note were not included. Chief Complaint Patient presents with Mass Pt is c/o 'bump' on right knee. It is painful. Appeared about 1 wk ago. No injury Assessment/Plan Diagnoses and all orders for this visit: Cyst of anterior horn of lateral meniscus of right knee (Primary) Assessment & Plan: Patient instructed to keep observing. If any redness or if it enlarges, then call for sooner appointment or re-evaluation. Will refer to general surgery for evaluation at their convenience. Orders: - Ambulatory referral to General Surgery Return in about 3 months (around 04/20/2024) for Recheck. History of Presenting Illness Right knee bump on knee that came about night. If she touches or presses on it its painful. No pain when walking. Nurses at her [place] facility stated they could feel fluid behind the bump(believe its a cyst). No other complaints or symptoms associated Knee Pain The incident occurred 5 to 7 days ago. The incident occurred at a intermediate. There was no injurymechanism. The pain is present in the right knee. The quality of the pain is described as aching (only when pushing on it). The pain is at a severity of 4/10. The pain is mild. Pertinent negatives include no inability to bear weight, loss of motion, loss of sensation, muscle weakness, numbness or ti ngling. She reports no foreign bodies present. The symptoms are aggravated by palpation. She has tried nothing for the symptoms. The treatment provided no relief. Pt was seen with student FELISHA Hayes Subjective: Lisa Allen is a 78 y.o. female. Patient is being seen today for Mass (Pt is c/o 'bump' on right knee. It is painful. Appeared about 1 wk ago. No injury) . Found a couple weeks ago. She has been pushing on it. Doesn't hurt. Review of Systems Constitutional: Negative. HENT: Negative. Cardiovascular: Negative. Gastrointestinal: Negative. Musculoskeletal: Bump on right lateral knee (possible cyst) Skin: Positive for color change. Neurological: Negative for tingling and numbness. All other systems reviewed and are negative. Breast: Negative. Physical Exam Constitutional: Appearance: Normal appearance. She is normal weight. Eyes: Extraocular Movements: Extraocular movements intact. Conjunctiva/sclera: Conjunctivae normal. Cardiovascular: Rate and Rhythm: Normal rate and regular rhythm. Pulses: Normal pulses. Heart sounds: Normal heart sounds. Abdominal: General: Bowel sounds are normal. Palpations: Abdomen is soft. Musculoskeletal: General: Normal range of motion. Skin: General: Skin is warm and dry. Findings: Bruising present. Neurological: General: No focal deficit present. Mental Status: She is oriented to person, place, and time. Psychiatric: Mood and Affect: Mood normal. Behavior: Behavior normal. Thought Content: Thought content normal. Judgment: Judgment normal. Current Outpatient Medications: acetaminophen (acetaminophen Extra Strength) [...] catheter every 8 (eight) weeks Infused at: [facility] ([facility] order in [facility] under 'Procedures' tab)., Disp: 1 each, Rfl: 5 BP 120/78 (BP Location: Right arm, Patient Position: Sitting) Pulse 65 Temp 36.8 ??C (98.2 ??F)(Oral) Ht 157.5 cm (5' 2 ) Wt 68.2 kg (150 lb 4.8 oz) SpO2 98% BMI 27.49 kg/m?? Olga Hernandez NP documented in this encounter Miscellaneous Notes * Assessment & Plan Note - Olga Hernandez NP - 01/19/2024 2:50 PM CDTAssociated Problem(s): Cyst of anterior horn of lateral meniscus of right knee Patient instructed to keep observing. If any redness or if it enlarges, then call for sooner appointment or re-evaluation. Will refer to general surgery for evaluation at their convenience. documented in this encounter Plan of Treatment Scheduled Referrals Name Type Priority Associated Diagnoses Order Schedule Ambulatory referral to General Surgery Outpatient Referral Routine Cyst of anterior horn of lateral meniscus of right knee Ordered: 01/19/2024 documented as of this encounter Visit Diagnoses Diagnosis Cyst of anterior horn of lateral meniscus of right knee- Primary documented in this encounter Care Teams Accounts Clerk Relationship Specialty Start Date End Date Servando Torre MD [address] [address] PCP - General Family Medicine 06/19/22 Mariela Denton MD [address] [place] [address] Referring Physician Gastroenterology 06/19/22 Lexis Barroso OD [address] [address] Syrup Maker 09/19/22 documented as of this encounter
--- OUTSIDE RECORDS SUMMARY | 2024-07-12 19:43 | XMS_ITS | Encounter Summary ---
Author Organization [facility] Address [address] [place] [address] Phone Care Team Providers Care Computer Science Instructor Name Role Phone Servando Torre MD Primary Care Provider [phone] Mariela Denton MD Unavailable [phone] [phone] Lexis Barroso OD Unavailable [phone]- [phone] Encounter Details Date Type Department Care Team (Late st Contact Info) Description 05/16/2023 9:00 AM CDT Office Visit [facility] Gastroenterology [address] 12th [place] [address] [place] [address] Mayra Zelaya, CONSTANZA [address] [place] [address] Ulcerative pancolitis without complication (CMS/HCC) (HCC) (Primary Dx); Elevated liver enzymes; Follow-up examination following treatment with high-risk medication Social History Tobacco Use Types Packs/Day Years [...] on file 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 Gender Identity Female 04/05/2022 6:17 PM CDT Sexual Orientation Straight 04/05/2022 6: 17 PM CDT documented as of this encounter Last Filed Vital Signs Vital Sign Reading Time Taken Comments Blood Pressure 186/79 05/16/2023 9:35 AM CDT Pulse 68 05/16/2023 9:35 AM CDT Temperature 36.8 ??C (98.2 ??F) 05/16/2023 9:35 AM CD T Respiratory Rate - - Oxygen Saturation - - Inhaled Oxygen Concentration - - Weight 69.4 kg (153 lb) 05/16/2023 9:35 AM CDT Height 157.6 cm (5' 2.04 ) 05/16/2023 9:35 AM CD T Body Mass Index 27.95 05/16/2023 9:35 AM CDT documented in this encounter Progress Notes * Mayra Zelaya, CONSTANZA - 05/16/2023 9:00 AM CDT REASON FOR VISIT: Follow-up for ulcerative pancolitis CURRENT MEDICATIONS: Keppra, Tylenol with codeine, Norvasc, ferrous sulfate, metformin, Lopressor, Pravachol, Entyvio 300 mg every 8 weeks, azathioprine 100 mg, vitamin-D, Apriso, Lamictal, vitamin-D, aspirin, probiotic, multivitamin PROBLEM LIST: Ulcerative pancolitis diagnosed in February 2020, when she presented with abdominal pain and was found to have chronic san-ulcerative colitis; she was initially treated with steroids as well as mesalamine, but unfortunately, because of cost as well as miscommunication, the patient ultimately did not r espond to mesalamine and was started on low-dose azathioprine in December 2021 (50 mg), her Apriso was stopped, and the patient's dose of azathioprine had been increased to 100 mg in March 2022. WhenI initially met the patient, she had only been on that higher dose of azathioprine for about 2 months, but had not noticed any difference in her symptoms of urgency or frequency. We initiated the patient on mesalamine, and ultimately initiated her on Entyvio. Her colonoscopy in November 2022 was consistent with remission with some residual loss of vascularity in the rectosigmoid colon. Her 6TG 293 [id number] on Azathioprine 100mg daily on 05/30/2022 Prediabetes. History of a fracture of the hip that was complicated by the fact that she was on Fosamax and did not heal completely. Asymmetric sensorineural hearing loss. Hypertension. Dementia New onset seizures HISTORY OF PRESENT ILLNESS: Lisa Allen is a blanca 78 y.o. female with a fairly recent diagnosis of ulcerative pancolitis whopresents today for follow-up after recent colonoscopy. The patient was last seen by Dr. Denton on 10/10/2022 at which time she had been started on Entyvio and maintained on azathioprine 100 mg daily. She indicated that she was having a bowel movement daily but with occasional episodes of incontinence typically treatment by dietary indiscretion. She tended to have looser stools she went out with friends. She was advised to stay on azathioprine for the time being but if her colonoscopy was suggestive of remission, she could slowly be tapered off. The patient's colonoscopy from 11/29/2022 showed decreased mucosal vascularity in the rectosigmoid, di verticulosis in the sigmoid, an ulcerated pseudopolyps in the rectosigmoid, nonbleeding internal hemorrhoids on retroflexion but otherwise normal-appearing bowel mucosa. Her most recent liver enzymeshave shown an increase in ALT and AST Patient presents with her granddaughter indicating that overall she is done fairly well. She does have looser stools and isn't sure if this is related to her ulcerative colitis. She was diagnosed with new onset seizures in February. She is tolerating the infusions without difficulty. She has several questions about the nature of her disease. REVIEW OF SYSTEMS: As per HPI, all other systems negative PHYSICAL EXAM: BP (!) 186/79 Pulse 68 Temp 36.8 ??C (98.2 ??F) Ht 157.6 cm (5' 2.04 ) Wt 69.4 kg (153 lb) BMI 27.95 kg/m?? General: Well-appearing elderly female in no acute cardiopulmonary distress HEENT: Sclerae are not inflamed or icteric, nose and mouth appear normal Pulmonary: Normal breath sounds Abdomen: Nondistended soft Skin: No worrisome lesions or rashes on exposed skin Neurological: Alert and oriented with no focal deficits, weak gait using walker OBJECTIVE DATA: Recents labs, imaging studies, and endoscopic procedures were reviewed for trends, and aberrations on the day of the patient's visit. ASSESSMENT AND PLAN: Lisa Allen is a blanca 78 y.o. female with a past medical history of ulcerative pancolitis diagnosed in 2019 who presents today for follow-up after recent colonoscopy Ulcerative colitis. We would an extended conversation of the nature of ulcerative colitis and autoimmune conditions. Patient's colonoscopy was suggestive of near remission with only some scant vascular changes in the rectosigmoid. For now we would recommend that she continue her medications but we will plan to check her metabolites with her upcoming infusion. If she remains in clinical remission we will likely try tapering down her azathioprine to limit her immunosuppression Loose stools. The patient largely. To be in mucosal remission so loose stools may be related to what she is eating or her medications. Immediate release metformin can cause diarrhea so potentially she could be shifted to the extended-release form. If that is insufficient, conceivably we could also try decreasing her mesalamine to 2 tablets daily as this can also cause looser stools. If needed shecan try fiber supplementation to make this more consolidated LFT abnormalities. These had not been seen in the past so may be a spurious finding. She is had a number of medications added, we would plan to check her tablets verify that these are still appropriate. If her liver enzymes continue to be a problem we would recommend further evaluation Liver nodule. This seems to have some enhancement but her MRI was limited due to motion artifact. Radiology recommended repeating a CT scan in 6 months. As the imaging was intended to see both the liver and kidneys, we can see if Radiology feels a dedicated MRCP would be faster and less likely to have motion artifact from breathing. High-risk medication. The patient is strongly encouraged to follow closely with her care team and stay up-to-date with her vaccinations. The patient was given ample opportunity to ask questions and have them. We would like her to returnin [address] Cook. This note was created in part with the assistance of Lemko voice recognition software. Director Orange variances may occur. documented in this encounter Plan of Treatment Not on file documented as of this encounter Visit Diagnoses Diagnosis Ulcerative pancolitis without complication (CMS/HCC) (HCC)- Primary Elevated liver enzymes Other nonspecific abnormal serum enzyme levels Follow-up examination following treatment with high-risk medication Follow-up examination following completed treatment with high-risk medications, not elsewhere classified documented in this encounter Care Teams Computer Science Instructor Relationship Specialty Start Date End Date Servando Torre MD [address] [address] PCP - General Family Medicine 06/19/22 Mariela Denton MD [address] [place] [address] Referring Physician Gastroenterology 06/19/22 Lexis Barroso OD [address] [place] [address] Clay Artisan 09/19/22 documented as of this encounter
--- OUTSIDE RECORDS SUMMARY | 2024-07-12 19:43 | XMS_ITS | Encounter Summary ---
Author Organization [facility] Address [address] [place] [address] Phone Care Team Providers Care Hat Trimmer Name Role Phone Servando Torre MD Primary Care Provider [phone] [phone] Mariela Denton MD Unavailable [phone] [phone] Lexis Barroso OD Unavailable +1- [phone] Encounter Details Date Type Department Care Team (Late st Contact Info) Description 07/14/2023 Telephone [facility] Epilepsy [address] [facility] [address] [facility] 6th [place] [address] [place] [address] Adria Burleson MD [address] [facility] [address] [place] [address] Social History Tobacco Use Types [...] on file Legal 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 DIE MOLDER * Telephone Encounter - Sherita Licona RN - 07/14/2023 1:53 PM LEAD DIE MOLDER Sent [employer] message informing patient that there were no structual abnormalities to explain seizure events. DIE MOLDER * Telephone Encounter - Sherita Licona RN - 07/14/2023 11:13 AM LEAD DIE MOLDER ----- Message from Adria Diop MD sent at 07/14/2023 10:59 AM LEAD DIE MOLDER ----- Dear Sherita Can we update family? TY IMPRESSION: No MRI evidence to explain the patient's seizures. ----- Message ----- From: Interface, Radiology Results In Sent: 07/11/2023 4:19 PM LEAD DIE MOLDER To: Adria Diop MD DIE MOLDER DIE MOLDER documented in this encounter Plan of Treatment Not on file documented as of this encounter Visit Diagnoses Not on filedocumented in this encounter Care Teams Hat Trimmer Relationship Specialty Start Date End Date Servando Torre MD [address] [facility] [address] [place] [address] PCP - General Family Medicine 06/19/22 Mariela Denton MD [address] [place] [address] Referring Physician Gastroenterology 06/19/22 Lexis aBrroso OD [address] [place] [address] Perl Developer 09/19/22 documented as of this encounter
--- OUTSIDE RECORDS SUMMARY | 2024-07-12 19:43 | XMS_ITS | Encounter Summary ---
Author Organization [facility] Healthcare Address [address] [place] [address] Care Team Providers Care Tower Truck Driver Name Role Phone Servando Torre MD Primary Care Provider Mariela Denton MD Unavailable [phone] [phone] Lexis Barroso OD Unavailable [phone]- [phone] Reason for Visit * Reason Onset Date Comments Patient Running Late For Apt 09/30/2023 Encounter Details Date Type Department Care Team (Late st Contact Info) Description 09/30/2023 Telephone [facility] Medical Group Primary Care at [place] [address] [place] [address] Servando Torre MD [address] [place] [address] [address] [place] [address] Patient Running Late For Apt Social History Tobacco Use Types Packs/Day Years [...] on file 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 No, patient in route. Does message need to be routed? Yes-FYI Only INE HEEL SEAT LASTER documented in this encounter Plan of Treatment Not on file documented as of this encounter Visit Diagnoses Not on filedocumented in this encounter Care Teams Tower Truck Driver Relationship Specialty Start Date End Date Servando Torre MD [facility] [address] PCP - General Family Medicine 06/19/22 Mariela Denton MD [facility] [address] [place] [address] Referring Physician Gastroenterology 06/19/22 Lexis Barroso OD [address] [place] [address] Health Tech 09/19/22 documented as of this encounter
--- OUTSIDE RECORDS SUMMARY | 2024-07-12 19:43 | XMS_ITS | Encounter Summary ---
Author Organization [facility] Address [address] [place] [address] Phone Care Team Providers Care Passport Support Associate Name Role Phone Servando Torre MD Primary Care Provider [phone] [phone] Mariela Denton MD Unavailable [phone] [phone] Lexis Barroso OD Unavailable +1- [phone] Reason for Visit * Reason Onset Date Comments Plan to check Entyvio level 08/19/2023 Encounter Details Date Type Department Care Team (Late st Contact Info) Description 08/19/[address] [facility] Gastroenterology [address] [place] [address] [place] [address] Lexis Renteria, ELMO Plan to check Entyvio level Social History Tobacco Use Types Packs/Day Years [...] on file Legal Sex Female 9:30 AM DIRECTOR ACUTE Gender Identity Female 04/05/2022 6:17 PM CDT Sexual Orientation Straight 04/05/2022 6: 17 PM CDT documented as of this encounter Progress Notes * Lexis Renteria, ELMO - 08/19/2023 1:[address] Cook reviewed patient's metabolites results from 07/24/23. Per Dr. Cook- Acceptable level. I prefer not to increase it (Azathioprine) to avoid further immunosuppression in her age. Please check entyvio level before her next infusion. Per patient- next infusion scheduled for 10/07/23. External order faxed to [facility] infusion center. Asked infusion team to reach out to our office if unable to draw Vedo level so that we canmake other arrangements, if necessary -------Fax Transmission Report------- To: Recipient at [phone] Subject: Joseph Allen Vedolizumab level (secure) Result: The transmission was successful. Explanation: All Pages Ok Pages Sent: 2 Connect Time: 1 minutes, 46 seconds Transmit Time: 08/19/2023 13:35 Transfer Rate: 9600 Status Code: 0000 Retry Count: 0 Job Id: [id number] Unique Id: [id number] Fax Line: 22 Fax Net Maker: [id number] CTOR ACUTE documented in this encounter Plan of Treatment Not on file documented as of this encounter Visit Diagnoses Not on filedocumented in this encounter Care Teams Passport Support Associate Relationship Specialty Start Date End Date Servando Torre MD [address] [facility] [address] [place] [address] PCP - General Family Medicine 06/19/22 Mariela Denton MD [address] [place] [address] Referring Physician Gastroenterology 06/19/22 Lexis Barroso OD [address] [place] [address] Therapeutic Sales Specialist 09/19/22 documented as of this encounter
--- OUTSIDE RECORDS SUMMARY | 2024-07-12 19:43 | XMS_ITS | Encounter Summary ---
Author Organization [facility] Healthcare Address [address] [place] [address] Care Team Providers Care Import Customer Service Manager Name Role Phone Servando Torre MD Primary Care Provider Mariela Denton MD Unavailable [phone] [phone] Lexis Barroso OD Unavailable +1- [phone] Reason for Visit * Reason Onset Date Comments Medical Records Request 07/31/2023 Encounter Details Date Type Department Care Team (Late st Contact Info) Description 07/31/2023 Telephone [facility] Medical Group Primary Care at [address] [address] Servando Torre MD [address] [place] [address] [address] [place] [address] Medical Records Request Social History [...] on file Legal Sex Female 9:30 AM PLASTER WHITTLER Gender Identity Female 04/05/2022 6:17 PM CDT Sexual Orientation Straight 04/05/2022 6: 17 PM CDT documented as of this encounter Miscellaneous Notes * Telephone Encounter - Regina Toscano MA - 07/31/2023 12:59 PM PLASTER WHITTLER Office notes have been faxed TER WHITTLER * Telephone Encounter - Zenaida Bond - 07/31/2023 11:21 AM CST Medical Records Request Request Type: Records Request Practice Will Complete What records are being requested:last 2 most recent Office Visit notes Who will the records be sent to (if being sent to another doctor, list the doctor's name and specialty)? Yosef at [facility] Date Needed: SHIRA Delivery Method: Fax Fax number to use for return of records: [phone] Attn. Nursing Additional Comments/Concerns: None Does the message need to be routed? Yes-Action Needed TER WHITTLER documented in this encounter Plan of Treatment Not on file documented as of this encounter Visit Diagnoses Not on filedocumented in this encounter Care Teams Import Customer Service Manager Relationship Specialty Start Date End Date Servando Torre MD [address] [address] PCP - General Family Medicine 06/19/22 Mariela Denton MD [address] [place] [address] Referring Physician Gastroenterology 06/19/22 Lexis Barroso OD [address] [place] [address] Broom Handle Dipper 09/19/22 documented as of this encounter
--- OUTSIDE RECORDS SUMMARY | 2024-07-12 19:43 | XMS_ITS | Encounter Summary ---
Author Organization [facility] Healthcare Address [address] [place] [address] Care Team Providers Care Software Test Engineer Name Role Phone Servando Torre MD Primary Care Provider Mariela Denton MD Unavailable [phone] Lexis Barroso OD Unavailable [phone]- [phone] Reason for Visit * Reason Onset Date Comments Additional Services Or Orders 06/30/2023 Encounter Details Date Type Department Care Team (Late st Contact Info) Description 06/30/2023 Telephone [facility] Medical Group Primary Care at [address] [address] Servando Torre MD [address] [place] [address] [address] [place] [address] Additional Services Or Orders Social History Tobacco Use Types Packs/Day Years [...] file Legal Sex Female 9:30 AM HEALTH AND SAFETY TECHNICIAN Gender Identity Female 04/05/2022 6:17 PM CDT Sexual Orientation Straight 04/05/2022 6: 17 PM CDT documented as of this encounter Miscellaneous Notes * Telephone Encounter - Britany Garcia - 07/07/2023 1:11 PM CST Medical Question/Miscellaneous Caller???s Concern: Wanting to know why patient was placed on an antibiotic medication recently andtalk about elevated blood pressure. Warm transferred. Does message need to be routed? Yes-Action Needed TH AND SAFETY TECHNICIAN * Addendum Note - Lydia Otto - 07/01/2023 3:30 PM CSTAddended by: LYDIA OTTO on: 07/01/2023 03:30 PM Modules accepted: Orders TH AND SAFETY TECHNICIAN * Telephone Encounter - Regina Loo MA - 06/30/2023 12:02 PM HEALTH AND SAFETY TECHNICIAN Spoke to Kimmie from [facility], Kimmie stated that the pt blood pressure was 182/86 and the pt confusion is worse. Spoke to Dr Torre, per Dr Torre pt to increase Losartan to 50mg and have urine tested. Called and Spoke to pt eliseo Alvares, informed her of increase in Losartan and urine test.She voiced understanding Called and spoke to Kimmie from [facility] and informed her of medication increase and urine test. Kimmie stated that she can not test the urine, the pt will need to go to a lab. Called pt eliseo Alvares, left a message informing her that [facility] can not test the urineand the pt will need to go to a lab to have urine tested. Also informed Dia that an order forthe urine test will be put into the system, if the pt is going to go outside of [facility] then let the office know and the order can be faxed. TH AND SAFETY TECHNICIAN * Telephone Encounter - Britany Garcia - 06/30/2023 11:21 AM CST Medical Question/Miscellaneous Caller???s Concern: Kimmie wanting to speak with nurse about patients health, she has increased confusion and elevated blood pressure. Does message need to be routed? Yes-Action Needed TH AND SAFETY TECHNICIAN documented in this encounter Plan of Treatment Not on file documented as of this encounter Results * (ABNORMAL) Urinalysis reflex to microscopic (07/01/2023 3:30 PM HEALTH AND SAFETY TECHNICIAN) Color, ur Yellow Yellow CERNER CH Clarity, ur Cloudy(A) Clear CERNER CH Specific gravity, ur 1.016 1.003 - 1.030 CERNER CH pH, urine 7.0 CERNER CH Comment: Interpretive Data ? Urine pH is affected by diet, medications, systemic acid-base disturbances, and renal tubular function. ??pH may affect urinary stone formation. ??For example, urine pH below 6.0 may help reduce the tendency for calcium phosphate stones and pH greater than 6.0 may reduce the tendency for uric acid stone formation. Source: [employer] Current Interpretive Data was last revised on [...] performed. CERNER CH Urine 07/01/2023 3:30 PM HEALTH AND SAFETY TECHNICIAN 07/01/2023 6:41 PM HEALTH AND SAFETY TECHNICIAN us Servando Torre MD LAB URINE ORDERABLES Final Result Performing Organization Address City/[facility]/ZIP Co de Phone Number AILEEN TIFF [address] [facility] [address] * Urine culture Urine, clean voided (07/01/2023 3:30 PM HEALTH AND SAFETY TECHNICIAN) Report Final Report: Less than 100,000 colonies/mL (clinically insignificant growth based on current clinical standards) AILEEN MATTHEW Comment:Testing performed by : [facility], [address] [place]., [address] Organism (CLINICALLY INSIGNIFICANT GROWTH AILEEN Urine, clean voided 07/01/2023 3:30 PM HEALTH AND SAFETY TECHNICIAN 07/01/2023 9:57 PM HEALTH AND SAFETY TECHNICIAN Narrative AILEEN MATTHEW - 07/03/2023 8:11 AM HEALTH AND SAFETY TECHNICIAN Testing performed by [facility] Microbiology Laboratory ([phone]) us Servando Torre MD LAB MICROBIOLOGY - GENERAL ORDERABLES Final Result Performing Organization Address City/[facility] Co de Phone Number AILEEN MATTHEW [address] [place] [address] documented in this encounter Visit Diagnoses Diagnosis UTI symptoms- Primary UTI symptoms documented in this encounter Care Teams Software Test Engineer Relationship Specialty Start Date End Date Servando Torre MD [facility] [place][note 2][address] [address] PCP - General Family Medicine 06/19/22 Mariela Denton MD [address] [place] [address] Referring Physician Gastroenterology 06/19/22 Lexis Barroso OD [address] [place] [address] Pantry Goods Worker 09/19/22 documented as of this encounter
--- OUTSIDE RECORDS SUMMARY | 2024-07-12 19:43 | XMS_ITS | Encounter Summary ---
Author Organization [facility] Healthcare Address [address] [place] [address] Care Team Providers Care Product Specialist Name Role Phone Servando Torre MD Primary Care Provider [phone] Mariela Denton MD Unavailable [phone] [phone] Lexis Barroso OD Unavailable [phone]- [phone] Reason for Visit * Reason Onset Date Comments Call about jumbled speech and vomiting 3 Encounter Details Date Type Department Care Team (Late st Contact Info) Description 06/03/[address] [facility] Medical Group Primary Care at [address] [address] Servando Torre MD [address] [place] [address] [address] [place] [address] Call about jumbled speech and vomiting (/) Social History Tobacco Use Types Packs/Day Years Used Date Smoking Tobacco: Never Passive Smoke Exposure: Never Smokeless Tobacco: Never AUDIT-C Answer Date Recorded Q1: How often do you have a drink containing alcohol? Never 11/29/2022 Q2: How many drinks containi ng alcohol do you have on a typical day when you are drinking? Patient does not drink 3 Q3: How often do you have [...] on file Legal Sex Female 9:30 AM HYDROLOGY PROFESSOR Gender Identity Female 04/05/2022 6:17 PM CDT Sexual Orientation Straight 04/05/2022 6: 17 PM CDT documented as of this encounter Miscellaneous Notes * Telephone Encounter - David Everett - 06/03/2023 11:44 AM CST Pt granddaughter Gerald (on HIPAA) called and stated that her grandmother had an episode that they are unsure if it is a seizure or not. She stated that she can answer questions but some of the speechis jumbled up. She also has some vomiting. Consulted with our Lead MA Regina Hicks and she recommended to take the patient to the ER for further evaluation. OLOGY PROFESSOR documented in this encounter Plan of Treatment Not on file documented as of this encounter Visit Diagnoses Not on filedocumented in this encounter Care Teams Product Specialist Relationship Specialty Start Date End Date Servando Torre MD [address] [address] PCP - General Family Medicine 06/19/22 Mariela Denton MD [address] [place] [address] Referring Physician Gastroenterology 06/19/22 Lexis Barroso OD [address] [address] Rubber And Plastics Worker 09/19/22 documented as of this encounter
--- OUTSIDE RECORDS SUMMARY | 2024-07-12 19:43 | XMS_ITS | Encounter Summary ---
Author Organization [facility] Healthcare Address [address] [place] [address] Care Team Providers Care Learning Strategist Name Role Phone Servando Torre MD Primary Care Provider Mariela Denton MD Unavailable [phone] [phone] Lexis Barroso OD Unavailable [phone]- [phone] Reason for Visit * Reason Onset Date Comments Medication Request 08/29/2023 Encounter Details Date Type Department Care Team (Late st Contact Info) Description 08/29/2023 Telephone [facility] Medical Group Primary Care at [address] [address] Servando Torre MD [address] [place] [address] [address] [place] [address] Medication Request Social History Tobacco Use Types Packs/Day [...] on file Legal Sex Female 9:30 AM BACK ORDER CLERK Gender Identity Female 04/05/2022 6:17 PM CDT Sexual Orientation Straight 04/05/2022 6: 17 PM CDT documented as of this encounter Miscellaneous Notes * Telephone Encounter - DeniseOctober - 08/29/2023 11:43 AM CST Medication Question/Clarification Medication Name(s): magnesium carbonate (MAGONATE) liquid (54 mg of elemental magnesium/5 mL) What is the question or clarification needed? Should he the pt Take 10 mL (108 mg of elemental magnesium total) by mouth nightly or Take 2 Tablets (235mg) nightly If needed, Pharmacy(s) medication(s) should be sent to: n/a Additional Comments: warm trans to back line Does message need to be routed? No ORDER CLERK documented in this encounter Plan of Treatment Not on file documented as of this encounter Visit Diagnoses Not on filedocumented in this encounter Care Teams Learning Strategist Relationship Specialty Start Date End Date Servando Torre MD [address] [address] PCP - General Family Medicine 06/19/22 Mariela Denton MD [address] [place] [address] Referring Physician Gastroenterology 06/19/22 Lexis Barroso OD [address] [place] [address] Fire Official 09/19/22 documented as of this encounter
--- OUTSIDE RECORDS SUMMARY | 2024-07-12 19:43 | XMS_ITS | Encounter Summary ---
Author Organization [facility] Healthcare Address [address] [place] [address] Care Team Providers Care Customer Service Operator Name Role Phone Servando Torre MD Primary Care Provider Mariela Denton MD Unavailable [phone] [phone] Lexis Barroso OD Unavailable [phone]- [phone] Reason for Visit * Reason Onset Date Comments Medical Question/Miscellaneous 07/25/2023 Encounter Details Date Type Department Care Team (Late st Contact Info) Description 07/25/2023 Telephone [facility] Medical Group Primary Care at [address] [address] Servando Torre MD [address] [place] [address] [address] [place] [address] Medical Question/Miscellaneous Social History Tobacco [...] on file Legal Sex Female 9:30 AM WATCH REPAIR PERSON Gender Identity Female 04/05/2022 6:17 PM CDT Sexual Orientation Straight 04/05/2022 6: 17 PM CDT documented as of this encounter Miscellaneous Notes * Telephone Encounter - Regina Loo MA - 07/30/2023 2:33 PM WATCH REPAIR PERSON Spoke to Mary from Medicare, Mary is faxing a form to be completed. H REPAIR PERSON * Telephone Encounter - Clementine Vega - 07/25/2023 4:29 PM CST Call Back Caller???s Concern: Niraj calling back to advise after speaking with Medicare, Medicare advised to Niraj that practice would need to contact Medicare to confirm pharmacy approval in order to bill patient's Medicare part B for the diabetes testing supplies and lancets. Niraj relayed Medicare phone number: [phone]. Please advise with Medicare at number listed above. Does message need to be routed? Yes-Action Needed H REPAIR PERSON * Telephone Encounter - Pamela Benites - 07/25/2023 4:16 PM CST Called Niraj and gave dx code. H REPAIR PERSON * Telephone Encounter - DeniseOctober - 07/25/2023 12:23 PM CST Medical Question/Miscellaneous Caller???s Concern: Niraj called for the ICd-10 code for them to bill medicare part b for the test strips and lancets please call [facility] Does message need to be routed? Yes-Action Needed H REPAIR PERSON documented in this encounter Plan of Treatment Not on file documented as of this encounter Visit Diagnoses Not on filedocumented in this encounter Care Teams Customer Service Operator Relationship Specialty Start Date End Date Servando Torre MD [address] [address] PCP - General Family Medicine 06/19/22 Mariela Denton MD [address] [place] [address] Referring Physician Gastroenterology 06/19/22 Lexis Barroso OD [address] [place] [address] Stamp Presser 09/19/22 documented as of this encounter
--- OUTSIDE RECORDS SUMMARY | 2024-07-12 19:43 | XMS_ITS | Encounter Summary ---
Author Organization [facility] Healthcare Address [address] [place] [address] Care Team Providers Care Director Center Name Role Phone Servando Torre MD Primary Care Provider Mariela Denton MD Unavailable [phone] [phone] Lexis Barroso OD Unavailable [phone]- [phone] Encounter Details Date Type Department Care Team (Late st Contact Info) Description 07/04/2023 Telephone [facility] Medical [facility] Primary Care at [address] [address] Servando Torre MD [address] [place] [address] [address] [place] [address] Social History Tobacco Use Types [...] on file Legal Sex Female 9:30 AM SCRAP YARD WORKER Gender Identity Female 04/05/2022 6:17 PM CDT Sexual Orientation Straight 04/05/2022 6: 17 PM CDT documented as of this encounter Miscellaneous Notes * Telephone Encounter - Lexis Jhaveri MA - 07/07/2023 10:43 AM CST HH notified. P YARD WORKER * Telephone Encounter - Lexis Jhaveri MA - 07/04/2023 11:39 AM CST Talked with HH. Their coding dept is having a hard time getting ins to cover their services. 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 They have notes from her neurologist where is suggests that but they cannot use this. P YARD WORKER * Telephone Encounter - Hailey Orourke - 07/04/2023 10:21 AM CST HH called stating they have questions regarding pt's services. P: [phone] P YARD WORKER documented in this encounter Plan of Treatment Not on file documented as of this encounter Visit Diagnoses Not on filedocumented in this encounter Care Teams Director Center Relationship Specialty Start Date End Date Servando Torre MD [facility] [address] [place] [address] PCP - General Family Medicine 06/19/22 Mariela Denton MD [address] [place] [address] Referring Physician Gastroenterology 06/19/22 Lexis Barroso OD [address] [place] [address] Computer Aided Design Drafter 09/19/22 documented as of this encounter
--- OUTSIDE RECORDS SUMMARY | 2024-07-12 19:43 | XMS_ITS | Encounter Summary ---
Author Organization [facility] Healthcare Address [address] [place] [address] Care Team Providers Care Superintendent Stevedoring Name Role Phone Servando Torre MD Primary Care Provider [phone]- [phone] Mariela Denton MD Unavailable [phone] [phone] Lexis Barroso OD Unavailable +1- [phone] Reason for Visit * Reason Comments Health Maintenance Encounter Details Date Type Department Care Team (Late st Contact Info) Description 09/30/2023 1:00 PM CERTIFIED EMERGENCY VEHICLE TECHNICIAN Office Visit [facility] Medical Group Primary Care at [address] [address] Servando Torre MD [address] [place] [address] [address] [place] [address] Hypertension associated with diabetes (HCC) (Primary Dx); Mixed diabetic hyperlipidemia associated with type 2 diabetes mellitus (HCC); Dementia in other diseases classified elsewhere, mild, without behavioral disturbance, psychotic disturbance, mood disturbance, and anxiety (HCC); Acute pulmonary edema (CMS/HCC) (HCC); Seizure (HCC); Ulcerative pancolitis without complication (CMS/HCC) (HCC) [...] on file Legal Sex Female 9:30 AM CERTIFIED EMERGENCY VEHICLE TECHNICIAN Gender Identity Female 04/05/2022 6:17 PM CDT Sexual Orientation Straight 04/05/2022 6: 17 PM CDT documented as of this encounter Last Filed Vital Signs Vital Sign Reading Time Taken Comments Blood Pressure 122/80 09/30/2023 1:29 PM CERTIFIED EMERGENCY VEHICLE TECHNICIAN Pulse 69 09/30/2023 1:29 PM CERTIFIED EMERGENCY VEHICLE TECHNICIAN Temperature 36.5 ??C (97.7 ??F) 09/30/2023 1:29 PM CS T Respiratory Rate 18 09/30/2023 1:29 PM CERTIFIED EMERGENCY VEHICLE TECHNICIAN Oxygen Saturation 97% 09/30/2023 1:29 PM CERTIFIED EMERGENCY VEHICLE TECHNICIAN Inhaled Oxygen Concentration - - Weight 66.7 kg (147 lb) 09/30/2023 1:29 PM CERTIFIED EMERGENCY VEHICLE TECHNICIAN Height 157.5 cm (5' 2 ) 09/30/2023 1:29 PM CERTIFIED EMERGENCY VEHICLE TECHNICIAN Body Mass Index 26.89 09/30/2023 1:29 PM CERTIFIED EMERGENCY VEHICLE TECHNICIAN documented in this encounter Patient Instructions * Patient Instructions* Servando Torre MD - 09/30/2023 1:00 PM CERTIFIED EMERGENCY VEHICLE TECHNICIAN Awaiting labs Continuing current regimen BP well controlled Thanks for coming in today! My medical assistants and I are thankful you have trusted us with your care, and hope that you received EXCELLENT care today! Please do not hesitate to call if you have any questions or concerns at [phone]. You may receive a phone call, text, MYCHART message, or e-mail asking about your care today. We would love to hear your feedback on how EXCELLENT your care wastoday! Wishing you better health, always. Dr. Torre IFIED EMERGENCY VEHICLE TECHNICIAN documented in this encounter Progress Notes * Servando Torre MD - 09/30/2023 1:00 PM CST SUBJECTIVE: 78 y.o. female for follow up of diabetes. Diabetic Review of Systems - medication compliance: compliant all of the time, diabetic diet compliance: compliant all of the time, home glucose monitoring: is performed sporadically, further diabetic ROS: no polyuria or polydipsia, no chest pain, dyspnea or TIA's, no numbness, tingling or pain in extremities, no unusual visual symptoms, weight has decreased. Current Outpatient Medications Medication Sig Dispense Refill acetaminophen (acetaminophen Extra Strength) 500 mg tablet Take 1 tablet (500 mg total) by mouth every 6 (six) hours as needed amLODIPine (NORVASC) 5 mg tablet Take 1 tablet (5 mg total) by mouth daily 90 tablet 1 aspirin 81 mg enteric coated tablet Take 1 tablet (81 mg total) by mouth daily 90 tablet 3 azaTHIOprine (IMURAN) 50 mg tablet Take 1.5 tablets (75 mg total) by mouth daily Please get drug level checked in one month. Safety labs required every 3 months for med refills. 45 tablet 1 busPIRone (BUSPAR) 5 mg tablet Take 1 [...] (two) times a day 180 tablet 1 losartan (COZAAR) 100 mg tablet Take 1 tablet (100 mg total) by mouth daily 30 tablet 11 magnesium carbonate (MAGONATE) liquid (54 mg of elemental magnesium/5 mL) Take 10 mL (108 mg of elemental magnesium total) by mouth nightly Take 2 Tablets (235mg) nightly 300 mL 11 mesalamine (APRISO) 0.375 gram 24 hr capsule Take 2 capsules by mouth in the morning and 2 capsulesin the evening 120 capsule 2 metFORMIN XR (GLUCOPHAGE XR) 750 mg [...] total) by mouth daily 90 tablet 3 pravastatin (PRAVACHOL) 40 mg tablet Take 1 tablet (40 mg total) by mouth nightly 90 tablet 3 vedolizumab (ENTYVIO) 300 mg recon soln Infuse 5 mL (300 mg total) into a venous catheter every 8 (eight) weeks Infused at: [facility] ([facility] order in Epic under 'Procedures' tab). 1 each 5 No current facility-administered medications for this visit. OBJECTIVE: Appearance: alert, well appearing, and in no distress and overweight. BP 122/80 (BP Location: Left arm, Patient Position: Sitting) Pulse 69 Temp 36.5 ??C (97.7 ??F) (Temporal) Resp 18 Ht 157.5 cm (5' 2 ) Wt 66.7 kg (147 lb) SpO2 97% BMI 26.89 kg/m?? Exam: heart sounds normal rate, regular rhythm, normal S1, S2, no murmurs, rubs, clicks or gallops,chest clear, no hepatosplenomegaly, no carotid bruits Diagnoses and all orders for this visit: Hypertension associated with diabetes (HCC) (Primary) Comments: blood pressure is controlled Awaiting A1c Continue metoprolol, losartan, amlodipine Continuing metformin Orders: - Hemoglobin A1c; Future Mixed diabetic hyperlipidemia associated with type 2 diabetes mellitus (HCC) Comments: awaiting labs Continuing pravastatin for risk reduction and cholesterol control Orders: - Hemoglobin A1c; Future Dementia in other diseases classified elsewhere, mild, without behavioral disturbance, psychotic disturbance, mood disturbance, and anxiety (HCC) Comments: she is being followed by Neurology No Aricept or Namenda started as of yet, but has an appointment coming up next week Acute pulmonary edema (CMS/HCC) (HCC) Comments: resolved Seizure (HCC) Comments: no seizure activity of late Ulcerative pancolitis without complication (CMS/HCC) (HCC) Comments: in remission IFIED EMERGENCY VEHICLE TECHNICIAN documented in this encounter Plan of Treatment Not on file documented as of this encounter Visit Diagnoses Diagnosis Hypertension associated with diabetes (HCC)- Primary Unspecified essential hypertension 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 classified elsewhere, mild, without behavioral disturbance, psychotic disturbance, mood disturbance, and anxiety (HCC) Acute pulmonary edema (CMS/HCC) (HCC) Unspecified acute edema of lung Seizure (HCC) Other convulsions Ulcerative pancolitis without complication (CMS/HCC) (HCC) documented in this encounter Discontinued Medications Medication Sig Discontinue Reason Start Date End Da te benzonatate (TESSALON) 100 mg capsuleIndications:Cough Take 1 capsule (100 mg total) by mouth 3 (three) times a day as needed for cough Therapy completed 08/07/2023 09/30/2023 documented as of this encounter Care Teams Superintendent Stevedoring Relationship Specialty Start Date End Date Servando Torre MD [address] [address] PCP - General Family Medicine 06/19/22 Mariela Denton MD [address] [place] [address] Referring Physician Gastroenterology 06/19/22 Lexis Barroso OD [address] [place] [address] Iv Technician 09/19/22 documented as of this encounter
--- OUTSIDE RECORDS SUMMARY | 2024-07-12 19:43 | XMS_ITS | Encounter Summary ---
Author Organization [facility] Healthcare Address [address] [place] [address] Care Team Providers Care Stock Buyer Name Role Phone Servando Torre MD Primary Care Provider [phone]- [phone] Mariela Denton MD Unavailable [phone] [phone] Lexis Barroso OD Unavailable +1- [phone] Encounter Details Date Type Department Care Team (Late st Contact Info) Description 10/02/2023 Telephone [facility] Medical Group Primary Care at [address] [address] Regina Loo MA Social History [...] on file Legal Sex Female 9:30 AM ROTATING EQUIPMENT ENGINEER Gender Identity Female 04/05/2022 6:17 PM CDT Sexual Orientation Straight 04/05/2022 6: 17 PM CDT documented as of this encounter Miscellaneous Notes * Telephone Encounter - Regina oLo MA - 10/02/2023 10:09 AM ROTATING EQUIPMENT ENGINEER Called pt daughter Aby, left message to call the office or view results and Dr Torre's recommendations in my chart TING EQUIPMENT ENGINEER * Telephone Encounter - Regina Loo MA - 10/02/2023 10:09 AM ROTATING EQUIPMENT ENGINEER ----- Message from eSrvando Torre MD sent at 10/01/2023 1:18 PM ROTATING EQUIPMENT ENGINEER ----- Please relay: I will have Lisa hold the calcium supplement for now, continue vitamin-D though. Calcium was a little high. Everything else looked pretty good. TING EQUIPMENT ENGINEER documented in this encounter Plan of Treatment Not on file documented as of this encounter Visit Diagnoses Not on filedocumented in this encounter Care Teams Stock Buyer Relationship Specialty Start Date End Date Servando Torre MD [facility] [address] [address] PCP - General Family Medicine 06/19/22 Mariela Denton MD [address] [place] [address] Referring Physician Gastroenterology 06/19/22 Lexis Barroso OD [address] [place] [address] Costume Draper 09/19/22 documented as of this encounter
--- OUTSIDE RECORDS SUMMARY | 2024-07-12 19:43 | XMS_ITS | Encounter Summary ---
Author Organization [facility] Address [address] [place] [address] Phone Care Team Providers Care Philosophy Professor Name Role Phone Servando Torre MD Primary Care Provider [phone] Mariela Denton MD Unavailable [phone] [phone] Lexis Barroso OD Unavailable +1- [phone] Encounter Details Date Type Department Care Team (Late st Contact Info) Description 07/04/2023 Telephone [place] [address] [facility] First Floor [address] [place] [address] Eileen Hernandez, RN Social History Tobacco Use Types Packs/Day Years [...] on file Legal Sex Female 9:30 AM ACCESS CLERK Gender Identity Female 04/05/2022 6:17 PM CDT Sexual Orientation Straight 04/05/2022 6: 17 PM CDT documented as of this encounter Miscellaneous Notes * Telephone Encounter - Eileen Hernandez RN - 07/04/2023 3:56 PM ACCESS CLERK Daughter Aby is calling concerned about patients increased anxiety. Becomes fixated on upcomingappointments or events. Repeatedly asks the time and location. Wakes up early the next day in orderto be ready to go, even if the appointment is not until late afternoon. She has been very sensitiveto sound and they cause her to be very anxious and agitated. Daughter is asking for something to take the edge off her anxiety. Please advise. SS CLERK documented in this encounter Plan of Treatment Not on file documented as of this encounter Visit Diagnoses Not on filedocumented in this encounter Care Teams Philosophy Professor Relationship Specialty Start Date End Date Servando Torre MD [facility] [address] [address] PCP - General Family Medicine 06/19/22 Mariela Denton MD [address] [place] [address] Referring Physician Gastroenterology 06/19/22 Lexis Barroso OD [address] [place] [address] Avionics Supervisor 09/19/22 documented as of this encounter
--- OUTSIDE RECORDS SUMMARY | 2024-07-12 19:43 | XMS_ITS | Encounter Summary ---
Author Organization [facility] Healthcare Address [address] [place] [address] Care Team Providers Care Director Product Safety Name Role Phone Servando Torre MD Primary Care Provider [phone] Mariela Denton MD Unavailable [phone] [phone] Lexis Barroso OD Unavailable +1- [phone] Reason for Visit * Reason Onset Date Comments Paperwork to be filled out 07/17/2023 Encounter Details Date Type Department Care Team (Late st Contact Info) Description 07/17/2023 Telephone [facility] Medical Group Primary Care at [address] [address] Servando Torre MD [address] [place] [address] [address] [place] [address] Paperwork to be filled out Social History Tobacco Use Types Packs/Day Years [...] on file Legal Sex Female 9:30 AM HANDLE ROUNDER OPERATOR Gender Identity Female 04/05/2022 6:17 PM CDT Sexual Orientation Straight 04/05/2022 6: 17 PM CDT documented as of this encounter Miscellaneous Notes * Telephone Encounter - Regina Loo MA - 07/18/2023 10:59 AM HANDLE ROUNDER OPERATOR Forms completed and pt granddasha Duarte notified, forms placed at check in desk LE ROUNDER OPERATOR * Telephone Encounter - Regina Loo MA - 07/17/2023 10:40 AM HANDLE ROUNDER OPERATOR Physician Assessment Certification form received and placed on Dr Torre's desk LE ROUNDER OPERATOR * Telephone Encounter - David Everett - 07/17/2023 9:27 AM CST Pt wilma Duarte came in and dropped off papers that need to be filled out. She would like a call to pick them up when they are filled out. She can be reached at [phone] LE ROUNDER OPERATOR documented in this encounter Plan of Treatment Not on file documented as of this encounter Visit Diagnoses Not on filedocumented in this encounter Care Teams Director Product Safety Relationship Specialty Start Date End Date Servando Torre MD [address] [address] PCP - General Family Medicine 06/19/22 Mariela Denton MD [address] [place] [address] Referring Physician Gastroenterology 06/19/22 Lexis Barroso OD [address], [place] [address] Cook Frozen Dessert 09/19/22 documented as of this encounter
--- OUTSIDE RECORDS SUMMARY | 2024-07-12 19:43 | XMS_ITS | Encounter Summary ---
Author Organization [facility] Healthcare Address [address] [place] [address] Care Team Providers Care Emu Farmer Name Role Phone Servando Torre MD Primary Care Provider Mariela Denton MD Unavailable [phone] -[phone] Lexis Barroso OD Unavailable +1- [phone] Reason for Visit * Reason Onset Date Comments call back for diagnosis code 06/25/2023 Encounter Details Date Type Department Care Team (Late st Contact Info) Description 06/25/[address] [facility] Primary Care at [address] [address] Servando Torre MD [address] [place] [address] [address] [place] [address] call back for diagnosis code Social History Tobacco Use Types Packs/Day Years [...] on file Legal Sex Female 9:30 AM SAUSAGE LINKER Gender Identity Female 04/05/2022 6:17 PM CDT Sexual Orientation Straight 04/05/2022 6: 17 PM CDT documented as of this encounter Miscellaneous Notes * Telephone Encounter - Regina Loo MA - 06/30/2023 12:22 PM SAUSAGE LINKER Called and spoke to the pt eliseo Alvares, she stated that the pt is taking Lamotrigine remazures. Called and spoke to Aby at [facility], informed Aby that the pt is taking Lamotrigine, she voiced understanding AGE LINKER * Telephone Encounter - Regina Loo MA - 06/30/2023 11:38 AM SAUSAGE LINKER Spoke to Aby from [facility], Aby stated that she spoke to the pt daughter Aby, the daughter stated to Aby from [facility] that the pt is not taking Lamotrigine. I informed Aby from [facility] that the pt was seen on 06/26/23 and the medications were verified and the pt did not mention she was not taking Lamotrigine and the medication was just filled on 06/24/23 by Adria Quinteros Si. I informed Aby from [facility] that I will call and speak to the pt daughter Aby and call her back with information. Aby from [facility] voiced understanding. Called and spoke to pt daughter Aby, Aby stated she was not for sure if the pt is taking Lamotrigine, Jacques is going to call her daughter Dia to verify pt medication and will send a my chart message. AGE LINKER * Telephone Encounter - Shelia Cbob - 06/27/2023 4:19 PM CST Call Back Caller???s Concern: Aby is calling needing to speak with Regina again regarding getting a verbalorder and CS attempted to call office 2x and did not get an answer. Please follow up Does message need to be routed? Yes-Action Needed AGE LINKER * Telephone Encounter - Pamela Silveira - 06/27/2023 4:13 PM CST Call Back Caller???s Concern: Aby is calling back to follow up. She states she was needing patients updated med list faxed over. She states she called earlier to confirm that patient was no longer taking the lamotrigine so that it could be taken off med list. Fax number is [phone] Does message need to be routed? Yes-Action Needed AGE LINKER * Telephone Encounter - Regina Toscano MA - 06/27/2023 11:04 AM SAUSAGE LINKER FYI AGE LINKER * Telephone Encounter - Denise October - 06/27/2023 10:57 AM CST Call Back Caller???s Concern: Mackenzie called back and stated that the pt no longer takes the medication / please call her back if needed Does message need to be routed? Yes-FYI Only AGE LINKER * Telephone Encounter - Regina Loo MA - 06/26/2023 4:57 PM SAUSAGE LINKER Called [facility] and spoke to Mackenzie, Mackenzie stated that Morena needed to know the diagnose of Lamotrigine and Azathioprine. I informed Mackenzie that Dr Torre does not prescribe these medications, Mackenzie voiced understanding and was given the doctors names that prescribe the medications. Mackenzie asked what is the cause of the pt cognitive and to please have Dr Torre addend the office note from today 06/26/23, to reflect the cause. Office note to be faxed after addendum to Moerna at [facility] #[phone] AGE LINKER * Telephone Encounter - David Everett - 06/25/2023 2:44 PM CST [facility] called and they are needing the diagnosis for a few medications. She alsoneeds the diagnosis with cognitive and mobility issues. She would like a call back today if possible as she needs to get this done SHIRA. She can be reached at [phone]. AGE LINKER documented in this encounter Plan of Treatment Not on file documented as of this encounter Visit Diagnoses Not on filedocumented in this encounter Care Teams Emu Farmer Relationship Specialty Start Date End Date Servando Torre MD [facility] [address] [address] PCP - General Family Medicine 06/19/22 Mariela Denton MD [facility] [address] [place] [address] Referring Physician Gastroenterology 06/19/22 Lexis Barroso OD [address] [place] [id number] Grants Manager 09/19/22 documented as of this encounter
--- OUTSIDE RECORDS SUMMARY | 2024-07-12 19:43 | XMS_ITS | Encounter Summary ---
Author Organization [facility] Healthcare Address [address] [place] [address] Care Team Providers Care Cable Ferryboat Operator Name Role Phone Servando Torre MD Primary Care Provider [phone]- [phone] Mariela Denton MD Unavailable [phone] -[phone] Lexis Barroso OD Unavailable +1- [phone] Reason for Referral * Consultation (Routine) - Closed Specialty Diagnoses / Procedures Referred By Contclemencia t Referred To Contact Orthopedic Surgery Diagnoses Chronic pain of both knees Olga Hernandez NP Phone: tel: fax: Michael Gonzalez PA [address] [place] [address] [address] Phone: tel: fax: Referral ID Status Reason Start Date Expiration Date V isits Requested Visits Authorized [id number] Closed Specialty Services Required 08/07/2023 09/05/2024 1 1 Question Answer Please select the performing region: [facility] [[id number]] Please select the performing department: [facility] [[id number]] To provider: MICHAEL GONZALEZ [[id number]] # of visits: 1 MANAGER Reason for Visit * Reason Comments Cough 10 days, chest pain, disturbing sleep Nasal Congestion Encounter Details Date Type Department Care Team (Late st Contact Info) Description 08/07/2023 3:30 PM FARM MANAGER Office Visit [facility] Primary Care at [address] [address] Olga Hernandez NP [address] [facility] [address] [place] [address] Chronic pain of both knees (Primary Dx); Acute non-recurrent frontal sinusitis Social History Tobacco Use Types Packs/Day Years [...] on file Legal Sex Female 9:30 AM FARM MANAGER Gender Identity Female 04/05/2022 6:17 PM CDT Sexual Orientation Straight 04/05/2022 6: 17 PM CDT documented as of this encounter Last Filed Vital Signs Vital Sign Reading Time Taken Comments Blood Pressure 104/58 08/07/2023 3:32 PM FARM MANAGER Pulse 64 08/07/2023 3:32 PM FARM MANAGER Temperature 36.7 ??C (98.1 ??F) 08/07/2023 3:32 PM CS T Respiratory Rate - - Oxygen Saturation 98% 08/07/2023 3:32 PM FARM MANAGER Inhaled Oxygen Concentration - - Weight 67.5 kg (148 lb 14.4 oz) 08/07/2023 3:32 PM FARM MANAGER Height 157.5 cm (5' 2 ) 08/07/2023 3:32 PM FARM MANAGER Body Mass Index 27.23 08/07/2023 3:32 PM FARM MANAGER documented in this encounter Ordered Prescriptions Prescription Sig Dispense Quantity Refills Last Filled Start Date End Date benzonatate (TESSALON) 100 mg capsuleIndications :Cough Take 1 capsule (100 mg total) by mouth 3 (three) times a day as needed for cough 42 capsule 08/07/2023 4 doxycycline (VIBRAMYCIN) 100 mg capsule Take 1 tablet/capsul e (100 mg total) by mouth 2 (two) times a day for 10 days 20 tablet/capsule 08/07/2023 4 documented in this encounter Progress Notes * Olga Hernandez, BLAST SETTER - 08/07/2023 3:30 PM CST Images from the original note were not included. Chief Complaint Patient presents with Cough 10 days, chest pain, disturbing sleep Nasal Congestion Subjective Lisa Allen is a 78 y.o. female who presents for evaluation of symptoms of a URI. Symptoms includecough described as productive of clear sputum. Onset of symptoms was 10 days ago, and has been stable since that time. Treatment to date: over the counter medications: mucinex and coricidin. Has stopped them over the last couple of days, just cough syrup at night. Granddaughter had a cold and she got better, but patient did not. . 2. When she gets up, both of her I have reviewed: allergies, current medications, past medical history, and problem list Review of Systems Review of Systems Constitutional: Negative for fever. HENT: Positive for congestion. Negative for sore throat. Eyes: Negative. Respiratory: Positive for cough. Cardiovascular: Negative. Skin: Negative. Objective General appearance: appears stated age, cooperative, and using walker Head: Normocephalic, without obvious abnormality, sinuses nontender to percussion Eyes: conjunctivae/corneas clear. PERRL Ears: normal TM's and external ear canals both ears Nose: Nares normal. Septum midline. Mucosa normal. No drainage or sinus tenderness., no sinus tenderness Throat: lips, mucosa, and tongue normal; teeth and gums normal Lungs: clear to auscultation bilaterally. Assessment/Plan bronchitis and sinusitis. Diagnoses and all orders for this visit: Chronic pain of both knees (Primary) - Ambulatory referral to Orthopedic Surgery; Future Acute non-recurrent frontal sinusitis Other orders - doxycycline (VIBRAMYCIN) 100 mg capsule; Take 1 tablet/capsule (100 mg total) by mouth 2 (two) times a day for 10 days - benzonatate (TESSALON) 100 mg capsule; Take 1 capsule (100 mg total) by mouth 3 (three) times a day as needed for cough Discussed the diagnosis and treatment of sinusitis. Doxycycline per orders. Follow up as needed. Call in 7 days if symptoms aren't resolving. Doxycycline Olga Hernandez NP MANAGER documented in this encounter Plan of Treatment Scheduled Referrals Name Type Priority Associated Diagnoses Order Schedule Ambulatory referral to Orthopedic Surgery Outpatient Referral Routine Chronic pain of both knees Expected: 08/21/2023 (Approximate), Expires: 08/07/2024 documented as of this encounter Visit Diagnoses Diagnosis Chronic pain of both knees- Primary Acute non-recurrent frontal sinusitis documented in this encounter Care Teams Cable Ferryboat Operator Relationship Specialty Start Date End Date Servando Torre MD [address] [facility] [address] [place] [address] PCP - General Family Medicine 06/19/22 Mariela Denton MD [address] [place] [address] Referring Physician Gastroenterology 06/19/22 Lexis Barroso OD [address] [place] [address] Supervisor Printing Shop 09/19/22 documented as of this encounter
--- OUTSIDE RECORDS SUMMARY | 2024-07-12 19:43 | XMS_ITS | Encounter Summary ---
Author Organization [facility] Healthcare Address [address] [place] [address] Care Team Providers Care Candy Separator Hard Name Role Phone Servando Torre MD Primary Care Provider [phone]- [phone] Mariela Denton MD Unavailable [phone] -[phone] Lexis Barroso OD Unavailable +1- [phone] Reason for Visit * Diagnostic Imaging (Routine) - Closed Specialty Diagnoses / Procedures Referred By Contclemencia t Referred To Contact Diagnoses Chronic pain of both knees Procedures XR Pelvis 1 or 2 Views Riri Gonzalez PA [address] [place] [address] [address] [place] [address] Phone: tel: fax: [facility] Medical Group Referral ID Status Reason Start Date Expiration Date Visits Re quested Visits Authorized [id number] Closed 08/28/2023 09/26/2024 1 1 Encounter Details Date Type Department Care Team (Latest Contact Info) Description 08/28/2023 10:55 AM ATHLETIC TURF WORKER Ancillary Procedure [facility] Imaging at [address] [address] Chronic pain of both knees [...] on file Legal Sex Female 9:30 AM ATHLETIC TURF WORKER Gender Identity Female 04/05/2022 6:17 PM CDT Sexual Orientation Straight 04/05/2022 6: 17 PM CDT documented as of this encounter Plan of Treatment Not on file documented as of this encounter Procedures Procedure Name Priority Date/Time Associated Diagnosis Comments XR PELVIS 1 OR 2 VIEWS Schedule Routine, Read Routine (OP Routine) 08/28/2023 11:01 AM ATHLETIC TURF WORKER Chronic pain of both knees documented in this encounter Results * XR Pelvis 1 or 2 Views (08/28/2023 11:01 AM ATHLETIC TURF WORKER) Anatomical Region Laterality Modality Body, Pelvis N/A Digital Radiogra phy Narrative 08/28/2023 1:04 PM ATHLETIC TURF WORKER Radiographs of the pelvis reviewed interpreted. ??No [...] knees documented in this encounter Care Teams Candy Separator Hard Relationship Specialty Start Date End Date Servando Torre MD [address] [facility] [address] [place] [address] PCP - General Family Medicine 06/19/22 Mariela Denton MD [address] [place] [address] Referring Physician Gastroenterology 06/19/22 Lexis Barroso OD [address] [place] [address] Fire Crew Worker 09/19/22 documented as of this encounter
--- OUTSIDE RECORDS SUMMARY | 2024-07-12 19:43 | XMS_ITS | Encounter Summary ---
Author Organization [facility] Healthcare Address [address] [place] [address] Care Team Providers Care Relief Pharmacist Name Role Phone Servando Torre MD Primary Care Provider Mariela Denton MD Unavailable [phone] [phone] Lexis Barroso OD Unavailable +1- [phone] Reason for Visit * Reason Onset Date Comments CHRISTELLE Questions 06/06/2023 Encounter Details Date Type Department Care Team (Late st Contact Info) Description 06/06/2023 Telephone [facility] Primary Care at [address] [address] Servando Torre MD [address] [place] [address] [address] [place] [address] CHRISTELLE Questions Social History Tobacco Use Types Packs/Day Years [...] on file Legal Sex Female 9:30 AM PROPOSAL REP Gender Identity Female 04/05/2022 6:17 PM CDT Sexual Orientation Straight 04/05/2022 6: 17 PM CDT documented as of this encounter Miscellaneous Notes * Telephone Encounter - Regina Loo MA - 06/09/2023 9:16 AM PROPOSAL REP Spoke to pt daughter Aby, informed her that the pt can take Pravastain, Aby voiced understanding. Aby would also like a urine test for pt when she comes in for an appointment on 06/11/23 OSAL REP * Telephone Encounter - Rhonda Olivas - 06/06/2023 3:42 PM CST CHRISTELLE Questions (Message from [facility]-Sugar Chipper Machine Operator): Has patient been discharged at time of call? Yes Date Admitted: 06/03 Date Discharged: 06/06 Facility Admitted To: [facility] Reason for Stay? Admitted for possible stroke, or seizure from epilepsy, UTI If prescribed new medications, do you have any questions or concerns? Yes please see below Do you have enough medication to get you to your follow-up appointment? No- patient was given Rosuvastatin at the hospital and the pharmacy is only wanting to give 1.5 pills. Since being released do you feel better, the same, or worse? Same-Still having some confusion Date of CHRISTELLE Appointment: 06/11/23 Do you have transportation to the appointment? Yes Additional Comments: none Does message need to be routed? Yes-Action Needed OSAL REP documented in this encounter Plan of Treatment Not on file documented as of this encounter Visit Diagnoses Not on filedocumented in this encounter Care Teams Relief Pharmacist Relationship Specialty Start Date End Date Servando Torre MD [address] [facility] [address] [place] [address] PCP - General Family Medicine 06/19/22 Mariela Denton MD [address] [place] [address] Referring Physician Gastroenterology 06/19/22 Lexis Barroso OD [address] [place] [address] Car Repairer Helper 09/19/22 documented as of this encounter
--- OUTSIDE RECORDS SUMMARY | 2024-07-12 19:43 | XMS_ITS | Encounter Summary ---
Author Organization [facility] Healthcare Address [address] [place] [address] Care Team Providers Care Literacy Coordinator Name Role Phone Servando Torre MD Primary Care Provider Mariela Denton MD Unavailable [phone] [phone] Lexis Barroso OD Unavailable +1- [phone] Encounter Details Date Type Department Care Team (Late st Contact Info) Description 07/02/2023 Orders Only [facility] Medical Group Primary Care at [address] [address] Servando Torre MD [address] [place] [address] [address] [place] [address] Social History Tobacco Use Types [...] file Legal Sex Female 9:30 AM SHRIMP CLEANER Gender Identity Female 04/05/2022 6:17 PM CDT Sexual Orientation Straight 04/05/2022 6: 17 PM CDT documented as of this encounter Ordered Prescriptions Prescription Sig Dispense Quantity Refills Last Filled Start Date End Date nitrofurantoin monohydrate (MACROBID) 100 mg capsule Take 1 capsule (100 mg total) by mouth 2 (two) times a day for 7 days 14 capsule 07/02/2023 3 documented in this encounter Plan of Treatment Not on file documented as of this encounter Visit Diagnoses Not on filedocumented in this encounter Care Teams Literacy Coordinator Relationship Specialty Start Date End Date Servando Torre MD [facility] [address] [address] PCP - General Family Medicine 06/19/22 Mariela Denton MD [address] [place] [address] Referring Physician Gastroenterology 06/19/22 Lexis Barroso OD [address] [place] [id number] Naval Science Teacher 09/19/22 documented as of this encounter
--- OUTSIDE RECORDS SUMMARY | 2024-07-12 19:44 | XMS_ITS | Encounter Summary ---
Author Organization [facility] Healthcare Address [address] [place] [address] Care Team Providers Care Laboratory Analyst Name Role Phone Servando Torre MD Primary Care Provider [phone]- [phone] Mariela Denton MD Unavailable [phone] -[phone] Lexis Barroso OD Unavailable +1- [phone] Encounter Details Date Type Department Care Team (Late st Contact Info) Description 03/17/2023 Telephone [facility] [address] [place] [address] Dorcas Holt RT Social History Tobacco Use Types Packs/Day Years [...] points, staff should administer the PHQ-9) 0 02/20/2023 Personal Safety Answer Date Recorded Have you ever been in or are you currently in a harmful physical or emotional relationship or is someone making you feel afraid or unsafe? Denies 03/07/2023 Comments No Sex and Gender Information Value Date Recorded Sex Assigned at Not on file Legal Sex Female 9:30 AM PHOTOGRAPHIC PROCESS SCREEN MAKER Gender Identity Female 04/05/2022 6:17 PM CDT Sexual Orientation Straight 04/05/2022 6: 17 PM CDT documented as of this encounter Miscellaneous Notes * Telephone Encounter - Dorcas Holt RT - 03/17/2023 12:16 PM CDT Confirmed appt documented in this encounter Plan of Treatment Not on file documented as of this encounter Visit Diagnoses Not on filedocumented in this encounter Care Teams Laboratory Analyst Relationship Specialty Start Date End Date Servando Torre MD [facility] [address] [address] PCP - General Family Medicine 06/19/22 Mariela Denton MD [address] [place] [address] Referring Physician Gastroenterology 06/19/22 Lexis Barroso OD [address] [place] [address] Hourly Team Members 09/19/22 documented as of this encounter
--- OUTSIDE RECORDS SUMMARY | 2024-07-12 19:44 | XMS_ITS | Encounter Summary ---
Author Organization [facility] Address [address] [place] [address] Phone Care Team Providers Care Fur Blower Name Role Phone Servando Torre MD Primary Care Provider [phone] Mariela Denton MD Unavailable [phone] Lexis Barroso OD Unavailable [phone] Encounter Details Date Type Department Care Team (Late st Contact Info) Description 03/17/2023 4:30 PM CDT Office Visit [facility] Epilepsy [address] 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 Gender Identity Female 04/05/2022 6:17 PM CDT Sexual Orientation Straight 04/05/2022 6: 17 PM CDT documented as of this encounter Last Filed Vital Signs Vital Sign Reading Time Taken Comments Blood Pressure 155/68 03/17/2023 4:28 PM CDT Pulse 70 03/17/2023 4:28 PM CDT Temperature - - Respiratory Rate - - Oxygen Saturation - - Inhaled Oxygen Concentration - - Weight 71.4 kg (157 lb 6.4 oz) 03/17/2023 4:28 P M CDT Height 157.5 cm (5' 2 ) 03/17/2023 4:28 PM CDT Body Mass Index 28.79 03/17/2023 4:28 PM CDT documented in this encounter Ordered Prescriptions Prescription Sig Dispense Quantity Refills Last Filled Start Date End Date levETIRAcetam (KEPPRA) 500 mg tablet Take 1 tablet (500 mg total) by mouth 2 (two) times a day 60 tablet 11 03/17/2023 06/09/2023 documented in this encounter Progress Notes * Teofilo Mon MD - 03/17/2023 4:30 PM CDT Patient Name: RADHA ALLEN Date of (): 1945 Encounter Date: 03/17/2023 PCP: Servando Torre MD Provider: Raj Cedillo MD Chief complaint: seizure 77 y.o. 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 OSH MRI showed L splenium of CC chronic hemorrhage /encephalomalacia/gliosis and scattered microhemorrhages and generalized atrophy. [facility] EEG showed right frontotemporal epileptiform discharges and slowing. Interval events: -Presented to the [facility] ED on 03/07/2023 due to concerns for multiple episodes of transientneurologic symptoms described as behavioral arrest, staring, dysarthria, and non-sensical speech described as speaking in words and phrases not related to the topic at hand in the setting of sleep deprivation for outpatient EEG. Clinical events and subsequent EEG concerning for underlying epilepsy,started on levetiracetam 500 mg BID -Since her initial event concerning for seizure, she has had forgetfulness described as mis-remembering details of daily events and difficulty laying down new memories. She will occasionally reference past events (e.g., referencing her who many years ago). -She has not yet been seen in [facility] (appointment on 04/28/[address] Nicolas) -Current antiseizure medications: levetiracetam 500 mg BID (started after suspected seizure on 03/07/2023 and in the setting of EEG findings) -Side effects: More sleepy throughout the day. Not necessarily interfering with her daily activities. However, now requires daily naps (~1.5 hours per day) and sleeps ~9 hours per night. No clear mood or behavioral side effects. -Seizure frequency: Seizure-free since 03/07/2023 -Last seizure: 03/07/2023. Semiology described as behavioral arrest, staring, dysarthria, and non-sensical speech described as speaking in words and phrases not related to the topic at hand -Social concerns: Now lives with family (previously lived independently). Working on finding a morelong-term living situation. 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 -EEG at [facility] on 03/07/2023: This is an abnormal awake and stage I and II sleep extended EEG due to 1)occasional, right frontotemporal, poorly formed epileptiform discharges and 2) intermittent right temporal slowing. Current ASMs: -Keppra 500 mg BID (On GBP 100 mg tid for pain) Prior ASMs: -No ----- Physical Exam Vital Signs Vitals: 03/17/23 1628 BP: 155/68 BP Location: Right arm Patient Position: Sitting Pulse: 70 Weight: 71.4 kg (157 lb 6.4 oz) Height: 157.5 cm (5' 2 ) General: Calm and cooperative, no acute distress, accompanied by daughter and granddaughter Neuro: Mental status: Alert, oriented to self and place and time, somewhat slow processing during recall. Intact naming/repetition/fluency. No dysarthria. Follows simple and complex commands. Abnormal Luriatesting. Cranial nerves: PERRL, OD (retinal detachment) cannot count fingers (can see lights and shapes) and pupil 1-2 mm nonreactive, EOMI, facial sensation intact to LT, face symmetric, hearing intact to voice, palate symmetric, uvula midline. SCM and traps full strength. Tongue midline. Motor: Strength 5/5 throughout with no drift. Normal tone/bulk. Sensory: Pinprick: Symmetric gradient to the bilateral knees and intact bilateral arms. Proprioception: Intact bilateral fingers. Intact bilateral toes. Vibration (Rydel-Seiffer, black-side): Right Left 1st digit, foot 0/8 0/8 Ankle 0/8 0/8 Knee 0/8 0/8 Coordination: Finger to nose intact. Reflexes: Hogue's present on the left but absent on the right, toes mute bilaterally, no clonus. Left Right Biceps (C5) 3 1 Triceps (C7) 3 1 Pronator (C6) 3 1 Patella (L4) 3 1 Achilles (S1) 2 2 Gait: Normal stride and arm swing. No tremor Labs: - Reviewed Assessment/plan: 77 y.o. 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 OSH MRI showed L splenium of CC chronic hemorrhage /encephalomalacia/gliosis and scattered microhemorrhages and generalized atrophy. [facility] EEG showed right frontotemporal epileptiform discharges and slowing. Impression: While initially her episodes were undifferentiated, her most recent episode of behavioral arrest, loss of awareness with amnesia to the event, staring, dysarthria, and language difficulties with reported progression to bilateral tonic-clonic seizures are consistent with a diagnosis of focal epilepsy with suspected temporal lobe versus orbitofrontal cortex onset. Her language dysfunction would suggest dominant temporal lobe or orbitofrontal cortex onset, but her EEG is notable for right frontotemporal epileptiform discharges and slowing, which is potentially explained by her left-handedness. Her MRI was reportedly notable only for encephalomalacia within the left aspect of the splenium of the corpus callosum, although upon further review there is asymmetric atrophy of the left greater than right hippocampi. Her clinical course (I.e., 2 lifetime seizures well-controlled with medication, chronic progressive memory decline, no notable or associated psychiatric features, no history of rashes/weight loss/night sweats/etc.) makes infectious, inflammatory, or autoimmune etiologies for her epilepsy less likely. At this time, the leading etiology is an underlying chronic progressive neurodegenerative disorder. She remains seizure-free on levetiracetam monotherapy, which she istolerating well. She and her family note increased sleepiness that is not interfering with her daily life or activities. Should her sleepiness begin to limit her daily life, we will consider cross-titration to lamotrigine at that time. Her neurologic exam is notable for a subtle cognitive dysfunction (I.e. abnormal Luria testing, previously abnormal recall testing), length-dependent sensory peripheral polyneuropathy, and asymmetrichyperreflexia on the left. [facility] is [facility] at [facility] ([facility]) for her cognitive symptoms, and her neuropathy is likely due to her chronic, long-standing, previously poorly-co ntrolled type 2 diabetes mellitus. Her asymmetric hyperreflexia on the left arm/leg is concerning for central pathology (I.e., likely structural cervical myelopathy). Given she is otherwise asymptomatic (I.e. no symptoms concerning for acute myelopathy or acute intracranial pathology), we will waitfor her evaluation at the [facility] prior to obtaining further imaging for epilepsy work-up, myelopathy work-up, and cognitive decline work-up to avoid repeat imaging. Of note, given her handedness and unclear lateralization of her clinical and electrographic findings, neuropsychological testing may provide additional benefit in terms of lateralization for her epilepsy. Recommendations: Neuroimaging: Pending [facility] evaluation. Will plan to obtain MRI brain epilepsy protocol with and without contrast and MRI cervical spine without contrast in coordination with the [facility] Electrodiagnostics: None Antiseizure medications (ASM): continue levetiracetam 500 mg BID Acute seizure medications: None at this time given seizure control Epilepsy monitoring unit (EMU): Not indicated at this time Surgical evaluation: Not indicated at this time as patient not medically-refractory Serum monitoring labs, including ASM levels: None at this time Continue vitamin D supplementation Bone density/DEXA scan 12/12/2022: Bone mineral density shows evidence of low bone mass at the lumbar spine and proximal femur and moderately increased fracture risk (Osteopenia) Seizure precautions reviewed Avoid medications that lower seizure threshold (Penicillins, Cephalosporins, Carbapenems, Fluoroquinolones, Metronidazole, Isoniazid, Tramadol, Bupropion, Clozapine) Follow-up in 3-4 months Teofilo Mon MD PGY5, Neurology/Epilepsy Seizure precautions including no driving for at least 6 months after last seizure, heights, swimming or bathing alone, operating heavy machinery or other activities during which a seizure would endanger her or others were discussed. Cosigned by Adria Burleson MD at 03/22/2023 10:55 AM CDT Associated attestation - Adria Burleson MD - 03/22/2023 10:55 AM CDT I have seen and examined the patient. I agree with the findings and plan of care as documented in the resident/fellow's note. My total encounter time on 03/17/2023 was 50 minutes which was spent in the activities documented in the note including review of her routine EEG study and trainee education.This includes time spent prior to the visit and after the visit in direct care of the patient. Thistime does not include time spent in any separately reportable services. documented in this encounter Miscellaneous Notes * Addendum Note - Adria Burleson MD - 03/17/2023 4:30 PM CDT Addended by: ADRIA BURLESON on: 03/22/2023 10:55 AM Modules accepted: Level of Service documented in this encounter Plan of Treatment Not on file documented as of this encounter Visit Diagnoses Diagnosis Localization-related symptomatic epilepsy and epileptic syndromes with complex partial seizures, not intractable, without status epilepticus (HCC)- Primary documented in this encounter Discontinued Medications Medication Sig Discontinue Reason Start Date End Da te levETIRAcetam (KEPPRA) 500 mg tablet Take 1 tablet (500 mg total) by mouth 2 (two) times a day Reorder 03/07/2023 03/17/2023 documented as of this encounter Care Teams Fur Blower Relationship Specialty Start Date End Date Servando Torre MD [address] [address] PCP - General Family Medicine 06/19/22 Mariela Denton MD [address] [place] [address] Referring Physician Gastroenterology 06/19/22 Lexis Barroso OD [address] [place] [id number] Assembly Line Supervisor 09/19/22 documented as of this encounter
--- OUTSIDE RECORDS SUMMARY | 2024-07-12 19:44 | XMS_ITS | Encounter Summary ---
Author Organization [facility] Healthcare Address [address] [place] [address] Care Team Providers Care Tool Hardener Name Role Phone Servando Torre MD Primary Care Provider [phone] Mariela Denton MD Unavailable [phone] -[phone] Lexis Barroso OD Unavailable +1- [phone] Encounter Details Date Type Department Care Team (Latest Contact Info) Description 03/21/2023 3:20 PM CDT - 03/21/2023 11:59 PM CDT Hospital Encounter [facility] [address] [place] [address] Hypertension, essential; Hypertension associated with type 2 diabetes mellitus (HCC); Hyperlipidemia due to type 2 diabetes mellitus (HCC); Mixed hyperlipidemia Discharge Disposition: Discharge to home [...] on file 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 90 tablet 3 05/31/2022 multivitamin capsule Take 1 capsule by mouth daily OneTouch Delica Plus Lancet 33 gauge miscIndications:P rediabetes 1 each by other route daily To check glucose with glucose monitor and strip 100 each 3 08/16/2022 OneTouch Ultra Test stripIndications: Prediabetes 1 each by other route daily To check blood glucose 50 each 11 08/16/2022 acetaminophen (acetaminophen Extra Strength) 500 mg tablet Take 1 tablet (500 mg total) by mouth every 6 (six) hours as needed 09/30/2022 4 acetaminophen-cod eine (TYLENOL with CODEINE #3) 300-30 mg per tablet Take 1 tablet by mouth every 6 (six) hours as needed for pain 21 tablet 02/20/2023 3 acetaminophen-cod eine (TYLENOL with CODEINE #3) 300-30 mg per tablet 1 tablet EVERY 6 HOURS NEEDED (route: oral) 02/20/2023 3 aspirin 81 mg enteric coated tablet Take 1 tablet (81 mg total) by mouth daily 4 azaTHIOprine (IMURAN) 100 mg tabletIndications :Ulcerative colitis with complication, unspecified location (HCC) Take 1 tablet (100 mg total) by mouth daily Safety labs required every 3 months for med refills, next labs due by the end of 01/2023. 90 tablet 12/17/2022 3 calcium citrate-vitamin D3 250 mg-5 mcg (200 unit) tablet Take 2 tablets by mouth 4 ferrous sulfate ER 324 mg (65 mg iron) EC tabletIndications :Iron Deficiency Anemia Take 1 tablet (324 mg total) by mouth daily with breakfast 90 tablet 1 10/10/2022 3 gabapentin (NEURONTIN) 100 mg capsule Take 1 capsule (100 mg total) by mouth 3 (three) times a day 3 Lactobacillus acidophilus (PROBIOTIC ORAL) Take by mouth 06/11 3 levETIRAcetam (KEPPRA) 500 mg tablet Take 1 tablet (500 mg total) by mouth 2 (two) times a day 60 tablet 11 03/17/2023 3 lidocaine (ASPERCREME) 4 % adhesive patch,medicated Apply 1 patch topically nightly 30 patch 1 02/02/2023 3 mesalamine (APRISO) 0.375 gram 24 hr capsuleIndication s:Ulcerative Colitis Take 4 capsules (1.5 g total) by mouth daily 120 capsule 11 08/15/2022 4 metFORMIN (GLUCOPHAGE) 850 mg tabletIndications :Type 2 diabetes mellitus with hyperglycemia, without long-term current use of insulin (HCC) Take 1 tablet (850 mg total) by mouth 2 (two) times a day with meals 60 tablet 2 03/21/2023 3 metoprolol tartrate (LOPRESSOR) 50 mg immediate release tablet Take 1 tablet (50 mg total) by mouth 2 (two) times a day 180 tablet 1 02/20/2023 4 metoprolol tartrate (LOPRESSOR) 50 mg immediate release tablet Take 1 tablet (50 mg total) by mouth 2 (two) times a day 02/20/2023 3 oxyCODONE (ROXICODONE) 5 mg immediate release tablet 3 Pain Reliever ES,acetaminophn, 500 mg tablet Take 2 tablets (1,000 mg total) by mouth every 8 (eight) [address] (PROTONIX) 40 mg EC tablet Take 1 tablet (40 mg total) by mouth daily 90 tablet 1 02/07/2023 4 pravastatin (PRAVACHOL) 40 mg tablet Take 1 tablet (40 mg total) by mouth daily 90 tablet 1 02/07/2023 4 Saccharomyces boulardii (FLORASTOR) 250 mg capsule Take by mouth 3 tiZANidine (ZANAFLEX) 2 mg tablet Take 1 tablet (2 mg total) by mouth every 6 (six) hours as needed for muscle spasms 120 tablet 1 02/07/2023 3 tiZANidine (ZANAFLEX) 2 mg tablet Take 1 tablet (2 mg total) by mouth every 6 (six) hours as needed 12/31/2022 3 vedolizumab (ENTYVIO) 300 mg recon soln Infuse 5 mL (300 mg total) into a venous catheter every 8 (eight) weeks 3 documented as of this encounter Discharge Disposition Disposition Code Departure Means Destination Discharge to home or self care documented in this encounter Plan of Treatment Not on file documented as of this encounter Procedures Procedure Name Priority Date/Time Associated Diagnosis Comments EGFR Routine 03/21/2023 3:20 PM CDT Hypertension, essential DIFFERENTIAL AUTO Routine 03/21/2023 3:2 0 PM CDT Hypertension, essential CBC WITH AUTO DIFFERENTIAL Routine 03/21/2023 3:20 PM CDT Hypertension, essential ALBUMIN CREATININE RATIO, URINE Routine 03/21/2023 3:20 PM CDT Hypertension associated with type 2 diabetes mellitus (HCC) Hyperlipidemia due to type 2 diabetes mellitus (HCC) HEMOGLOBIN A1C Routine 03/21/2023 3:20 PM CDT Hypertension associated with type 2 diabetes mellitus (HCC) Hyperlipidemia due to type 2 diabetes mellitus (HCC) LIPID PANEL Routine 03/21/2023 3:20 PM CDT Mixed hyperlipidemia COMPREHENSIVE METABOLIC PANEL Routine 03/21/2023 3:20 PM CDT Hypertension, essential documented in this encounter Results * eGFR (03/21/2023 3:20 PM CDT) eGFR 76 mL/min/1. 73 m2 [facility] Comment: Interpretive Data Reference Interval Normal ?>/= [...] interpretive data was last reviewed 2021. Blood 03/21/2023 3:20 PM CDT 03/21/2023 6:07 PM CDT Servando Torre MD LAB BLOOD ORDERABLES Final Result [facility] [address] Department [place] [address] * Differential, auto (03/21/2023 3:20 PM CDT) Pathologist [facility] Neutrophil abs 4.2 1.7 - 6.5 K/cumm [facility] Imm gran abs 0.0 0.0 - 0.1 K/cumm [facility] Lymphocyte abs 1.9 0.8 - 3.3 K/cumm [facility] Monocyte abs 0.6 0.2 - 0.8 K/cumm [facility] Eosinophil abs 0.2 0.0 - 0.5 K/cumm [facility] Basophil abs 0.1 0.0 - 0.1 K/cumm [facility] Neutrophil pct 59.6 % [facility] Comment: Interpretive Data Percent cell count reference ranges are not reported, since discordance with absolute values may lead to misinterpretation of CBC data. Current Interpretive Data was last revised on 2017. Imm gran pct 0.4 % [facility] Comment: Interpretive Data Percent cell count reference ranges are not reported, since discordance with absolute values may lead to misinterpretation of CBC data. Current Interpretive Data was last revised on 2017. Lymphocyte pct 27.6 % [facility] Comment: Interpretive Data Percent cell count reference ranges are not reported, since discordance with absolute values may lead to misinterpretation of CBC data. Current Interpretive Data was last revised on 2017. Monocyte pct 8.8 % [facility] Comment: Interpretive Data Percent cell count reference ranges are not reported, since discordance with absolute values may lead to misinterpretation of CBC data. Current Interpretive Data was last revised on 2017. Eosinophil pct 2.9 % [facility] Comment: Interpretive Data Percent cell count reference ranges are not reported, since discordance with absolute values may lead to misinterpretation of CBC data. Current Interpretive Data was last revised on 2017. Basophil pct 0.7 % [facility] Comment: Interpretive Data Percent cell count reference ranges are not reported, since discordance with absolute values may lead to misinterpretation of CBC data. Current Interpretive Data was last revised on 2017. Blood 03/21/2023 3:20 PM CDT 03/21/2023 6:04 PM CDT us Servando Torre MD LAB BLOOD ORDERABLES Final Result [facility] [address] Department [place] [address] * (ABNORMAL) Comprehensive metabolic panel (03/21/2023 3:20 PM CDT) Sodium 141 135 - 145 mmol/L [facility] Potassium, pl 3.9 3.3 - 4.9 mmol/L [facility] Chloride 102 97 - 110 mmol/L [facility] CO2 29 22 - 32 mmol/L [facility] Anion gap 10 2 - 15 mmol/L [facility] BUN 12 6 - 25 mg/dL [facility] Creatinine 0.79 0.60 - 1.10 mg/dL [facility] Glucose 130 70 - 199 mg/dL [facility] Comment: [...] - 1.2 mg/dL [facility] Protein, pl 6.9 6.5 - 8.5 g/dL [facility] Albumin 4.2 3.5 - 5.0 g/dL [facility] Alk phos 84 40 - 130 Units/L [facility] ALT 62(H) 7 - 45 Units/L [facility] AST 46(H) 10 - 45 Units/L [facility] Blood 03/21/2023 3:20 PM CDT 03/21/2023 6:04 PM CDT us Servando Torre MD LAB BLOOD ORDERABLES Final Result [facility] [address] Department [place] [address] * (ABNORMAL) Lipid panel (03/21/2023 3:20 PM CDT) Cholesterol 181 30 - 199 mg/dL [facility] Comment: Interpretive Data Ages < or = [...] Data was last revised on 2018. Triglycerides 191(H) <=149 mg/dL [facility] Comment: Interpretive Data [...] Data was last revised on 2018. HDL 54 >=40 mg/dL [facility] Comment: Interpretive Data [...] was last revised on 2018. LDL, calculated 89 <=129 mg/dL [facility] Comment: Interpretive Data Ages [...] was last revised on 2018. Non-HDL Cholesterol 127 mg/dL [facility] Comment: Interpretive Data Ages < [...] revised on 2018. Chol/HDL ratio 3 [facility] Blood 03/21/2023 3:20 PM CDT 03/21/2023 6:04 PM CDT Result [facility] Servando Torre MD LAB BLOOD ORDERABLES Final Result Performing Organization Address [facility] Phone Number [facility] [address] [facility] [place] [place] [address] * (ABNORMAL) Hemoglobin A1c (03/21/2023 3:20 PM CDT) Hgb A1C 6.1(H) 4.0 - 5.6 % [facility] Estimated Average Glucose 128 mg/dL [facility] Comment: The ADA recommends reporting an estimated Average Glucose (eAG) with all Hemoglobin A1c results using the equation derived from a study of 507 normal and diabetic adults. ??Minority populations were underrepresented and children were not included. ?? (Diabetes Care 31:8822-4935, 2008). ??The eAG is not equivalent to a fasting glucose. Blood 03/21/2023 3:20 PM CDT 03/21/2023 6:04 PM CDT Servando Torre MD LAB BLOOD ORDERABLES Final Result Performing Organization Address [facility] Phone Number [facility] [address] [place] [address] * (ABNORMAL) Albumin Creatinine Ratio, Urine (03/21/2023 3:20 PM CDT) Albumin Ur 260.7 mg/L [facility] Comment: Interpretive Data No reference range established. Current interpretive data was last revised 2018. Creatinine Ur 234.1 mg/dL [facility] Comment: Interpretive Data No reference range established. Current interpretive data was last revised 2018. Albumin Creatinine Ratio, Ur 111(H) 1 - 29 mg/g [facility] Urine 03/21/2023 3:20 PM CDT 03/21/2023 6:04 PM CDT Result [facility] Servando Torre MD LAB URINE ORDERABLES Final Result Performing Organization Address [facility] Phone Number [facility] [address] Department [place] [address] * (ABNORMAL) CBC with auto differential (03/21/2023 3:20 PM CDT) WBC 7.0 3.8 - 9.9 K/cumm [facility] Hgb 13.6 11.9 - 15.5 g/dL [facility] Hct 43.5 35.6 - 45.5 % [facility] Plt 313 150 - 400 K/cumm [facility] MPV 9.7 9.1 - 12.3 fL [facility] RBC 4.52 3.90 - 5.20 M/cumm [facility] MCV 96.2 81.3 - 96.4 fL [facility] MCH 30.1 27.1 - 33.3 pg [facility] MCHC 31.3(L) 32.3 - 35.7 g/dL [facility] RDW CV 15.6(H) 11.1 - 14.9 % [facility] RDW SD 54.9(H) 35.7 - 48.1 fL [facility] NRBC abs 0.02(H) 0.00 - 0.01 K/cumm [facility] Blood 03/21/2023 3:20 PM CDT 03/21/2023 6:04 PM CDT Servando Torre MD LAB BLOOD ORDERABLES Final Result Performing Organization Address [facility] de Phone Number [facility] [address] Department [place] [address] documented in this encounter Visit Diagnoses Diagnosis Hypertension, essential Unspecified essential hypertension Hypertension associated with type 2 diabetes mellitus (HCC) Hyperlipidemia due to type 2 diabetes mellitus (HCC) Mixed hyperlipidemia documented in this encounter Care Teams Tool Hardener Relationship Specialty Start Date End Date Servando Torre MD [address] [address] PCP - General Family Medicine 06/19/22 Mariela Denton MD [address] [place] [address] Referring Physician Gastroenterology 06/19/22 Lexis Barroso OD [address] [place] [address] Supervisor Rolling Room 09/19/22 documented as of this encounter
--- OUTSIDE RECORDS SUMMARY | 2024-07-12 19:44 | XMS_ITS | Encounter Summary ---
Author Organization [facility] Address [address] [place] [address] Phone Care Team Providers Care Asset Protection Officer Name Role Phone Servando Torre MD Primary Care Provider [phone] [phone] Mariela Denton MD Unavailable [phone] [phone] Lexis Barroso OD Unavailable +1- [phone] Reason for Visit * Reason Onset Date Comments PA for Azathiopurine 04/04/2023 PA Approved 04/04/2023 Encounter Details Date Type Department Care Team (Late st Contact Info) Description 04/04/2023 Documentation [facility] Gastroenterology [address] [facility] 12th [place] [address] [place] [id number] Coty Sorensen for Azathiopurine; PA Approved Social History Tobacco Use Types Packs/Day Years [...] on file 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 Gender Identity Female 04/05/2022 6:17 PM CDT Sexual Orientation Straight 04/05/2022 6: 17 PM CDT documented as of this encounter Progress Notes * Coty Sorensen - 04/04/2023 3:58 PM CDT 04/07/23 - PA approved through [employer] starting 01/04/2023 through 04/04/2024 (#90 per 90 days) PA submitted to [employer] through [facility] for Aza (#90 per 90 days) documented in this encounter Plan of Treatment Not on file documented as of this encounter Visit Diagnoses Not on filedocumented in this encounter Care Teams Asset Protection Officer Relationship Specialty Start Date End Date Servando Torre MD [address] [address] PCP - General Family Medicine 06/19/22 Mariela Denton MD [facility] [address] [place] [address] Referring Physician Gastroenterology 06/19/22 Lexis Barroso OD [address] [place] [address] Appointment Setter 09/19/22 documented as of this encounter
--- OUTSIDE RECORDS SUMMARY | 2024-07-12 19:44 | XMS_ITS | Encounter Summary ---
Author Organization [facility] Healthcare Address [address] [place] [address] Care Team Providers Care Gospel Singer Name Role Phone Servando Torre MD Primary Care Provider Mariela Denton MD Unavailable [phone] [phone] Lexis Barroso OD Unavailable [phone]- [phone] Reason for Visit * Reason Onset Date Comments Medical Question/Miscellaneous 05/07/2023 Encounter Details Date Type Department Care Team (Late st Contact Info) Description 05/07/2023 Telephone [facility] Medical Group Primary Care at [address] [address] Servando Torre MD [address] [place] [address] [address] [place] [address] Medical Question/Miscellaneous Social History Tobacco [...] on file 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 No action needed, just FYI Caller???s Call back #: [phone] Does message need to be routed? Yes-FYI Only documented in this encounter Plan of Treatment Not on file documented as of this encounter Visit Diagnoses Not on filedocumented in this encounter Care Teams Gospel Singer Relationship Specialty Start Date End Date Servando Torre MD [address] [address] PCP - General Family Medicine 06/19/22 Mariela Denton MD [address] [place] [address] Referring Physician Gastroenterology 06/19/22 Lexis Barroso OD [address] [place] [address] Electric Blasting Cap Assembler 09/19/22 documented as of this encounter
--- OUTSIDE RECORDS SUMMARY | 2024-07-12 19:44 | XMS_ITS | Encounter Summary ---
Author Organization [facility] Address [address] [place] [address] Phone Care Team Providers Care Crop Farmers Name Role Phone Servando Torre MD Primary Care Provider [phone] [phone] Mariela Denton MD Unavailable [phone] [phone] Lexis Barroso OD Unavailable [phone]- [phone] Encounter Details Date Type Department Care Team (Late st Contact Info) Description 04/11/2023 Telephone [facility] [address] [facility] 6th [place] [address] [place] [address] Lizzy Young Social History Tobacco Use Types Packs/Day Years [...] on file 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 No answer,left VM to call back. documented in this encounter Plan of Treatment Not on file documented as of this encounter Visit Diagnoses Not on filedocumented in this encounter Care Teams Crop Farmers Relationship Specialty Start Date End Date Servando Torre MD [facility] [address] [address] PCP - General Family Medicine 06/19/22 Mariela Denton MD [address] [place] [address] Referring Physician Gastroenterology 06/19/22 Lexis Barroso OD [address] [place] [address] Manager Documentation 09/19/22 documented as of this encounter
--- OUTSIDE RECORDS SUMMARY | 2024-07-12 19:44 | XMS_ITS | Encounter Summary ---
Author Organization 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 No answer, left VM to call back. documented in this encounter Plan of Treatment Not on file documented as of this encounter Visit Diagnoses Not on filedocumented in this encounter Care Teams Recruitment Director Relationship Specialty Start Date End Date Servando Torre MD [facility] [address] [address] PCP - General Family Medicine 06/19/22 Mariela Denton MD [address] [place] [address] Referring Physician Gastroenterology 06/19/22 Lexis Barroso OD [address] [place] [address] Hydro Mechanic 09/19/22 documented as of this encounter
--- OUTSIDE RECORDS SUMMARY | 2024-07-12 19:44 | XMS_ITS | Encounter Summary ---
Author Organization [facility] Medical Group Address [address] [facility] [address] [place] [address] Care Team Providers Care Sterilization Tech Name Role Phone Servando Torre MD Primary Care Provider +1- [phone] Mariela Denton MD Unavailable +1 -[phone] Lexis Barroso OD Unavailable +1- [phone] Reason for Referral * MRI/CAT/PET Scan (Routine) - Closed Specialty Diagnoses / Procedures Referred By Contac t Referred To Contact Radiology Diagnoses Nodule of kidney Procedures MRI Abdomen Kidney W WO Contrast Marixa San NP [address] [facility] [address] [place] [address] Phone: tel: fax: [address] [address] Referral ID Status Reason Start Date Expiration Date Visits Re quested Visits Authorized [id number] Closed 03/21/2023 04/19/2024 1 1 Encounter Details Date Type Department Care Team (Late st Contact Info) Description 03/21/2023 Orders Only [facility] Primary Care at [address] [address] Marixa San NP [address] [facility] [address] [place] [address] Nodule of kidney (Primary Dx) Social History Tobacco Use Types [...] on file 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 MRI ABDOMEN KIDNEY W WO CONTRAST REASON FOR STUDY: Indeterminate right kidney lower pole lesion. ??Indifferent hepatic left lobe lesion. ??MRI is being performed for further evaluation. TECHNIQUE: MRI of the abdomen performed ?? without and with ??intravenous contrast according to the ??renal ??protocol. All images stored on PACS. ? CONTRAST TYPE/DOSE: ?? 20mL of GADOTERATE MEGLUMINE 0.5 MMOL/ML INTRAVENOUS SOLUTION (SO) ??injected via ?? intravenous COMPARISON: ?? CT dated March 18, 2023 REFERENCE: Per ACR white paper recommendations, unless otherwise specified no follow-up imaging is recommended for incidental renal and adrenal lesions per consensus recommendations based on imaging criteria. Further lab evaluation could be pursued based on clinical findings. FINDINGS: LOWER CHEST: ?? No effusion. LIVER: ?? Normal size. ??Within hepatic segment 4A there is a markedly T2 hyperintense lesion measuring 1.5 x 1.6 cm. ??This corresponds to area of concern on recent CT scan. ??No evidence of restricted diffusion. ??No microscopic or macroscopic fat. ??This is poorly seen on precontrast T1 fat saturated sequence. ??On postcontrast imaging this is poorly seen due to a combination of respiratory motion as well as artifact and cannot be adequately assessed. GALLBLADDER: ??No stones, wall thickening or pericholecystic fluid. BILE DUCTS: ?? No intrahepatic or extrahepatic ductal dilatation. SPLEEN: ?? Normal size. ??No focal lesions. PANCREAS: ?? No masses. No adjacent inflammation or peripancreatic fluid collections. Pancreatic duct not dilated ADRENALS: ?? Normal. KIDNEYS/URINARY TRACT: ?? Bilateral renal Bosniak 1 and 2 cysts. ??Several hemorrhagic/proteinaceous cysts are also seen. ??Detailed evaluation of the kidneys is significantly limited due to a combination of artifact as well as respiratory motion making the ability to exclude a renal cell carcinoma extremely challenging.. ??No hydronephrosis or hydroureter. ??Symmetric enhancement. ?? GI: ?? No visualized abnormality. PERITONEUM: ?? No ascites. RETROPERITONEUM: ?? No mass or adenopathy. VASCULATURE: ?? No abdominal aortic aneurysm. MUSCULOSKELETAL: ?? No acute findings. OTHER: ?? No other abnormality. IMPRESSION: 1. ?? Limited evaluation of the hepatic and renal lesions due to a combination of respiratory motion and MRI artifact. ??Consider follow-up CT in 6 months. THIS IS AN ELECTRONICALLY VERIFIED FINAL REPORT 04/25/2023 2:51 PM - Electronically signed by ??Mars Doll M.D. JA: JAYLEEN Guzmán: ??04/25/2023 2:51 PM T: ??04/25/2023 2:51 PM Report ID: [id number] Reading Location: ??[id number] Procedure Note Mars Doll MD - 04/25/2023 EXAM DESCRIPTION: MRI ABDOMEN KIDNEY W WO CONTRAST REASON FOR STUDY: Indeterminate right kidney lower pole lesion.Indifferent hepatic left lobe lesion. MRI is being performed for further evaluation. TECHNIQUE: MRI of the abdomen performed without and with intravenous contrast according to the renal protocol. All images stored on PACS. CONTRAST TYPE/DOSE: 20mL of GADOTERATE MEGLUMINE 0.5 MMOL/ML INTRAVENOUS SOLUTION (SO) injected via intravenous COMPARISON: CT dated March 18, 2023 REFERENCE: Per ACR white paper recommendations, unless otherwise specifiedno follow-up imaging is recommended for incidental renal and adrenal lesionsper consensus recommendations based on imaging criteria. Further labevaluation could be pursued based on clinical findings. FINDINGS: LOWER CHEST: No effusion. LIVER: Normal size. Within hepatic segment 4A there is a markedly T2 hyperintense lesion measuring 1.5 x 1.6 cm. This corresponds to area of concern on recent CT scan. No evidence of restricted diffusion. No microscopic or macroscopic fat. This is poorly seen on precontrast T1 fat saturated sequence. On postcontrast imaging this is poorly seen due to a combination of respiratory motion as well as artifact and cannot beadequately assessed. GALLBLADDER: No stones, wall thickening or pericholecystic fluid. BILE DUCTS: No intrahepatic or extrahepatic ductal dilatation. SPLEEN: Normal size. No focal lesions. PANCREAS: No masses. No adjacent inflammation or peripancreatic fluid collections. Pancreatic duct not dilated ADRENALS: Normal. KIDNEYS/URINARY TRACT: Bilateral renal Bosniak 1 and 2 cysts. Several hemorrhagic/proteinaceous cysts are also seen. Detailed evaluation of the kidneys is significantly limited due to a combination of artifact as wellas respiratory motion making the ability to exclude a renal cell carcinoma extremely challenging.. No hydronephrosis or hydroureter. Symmetric enhancement. GI: No visualized abnormality. PERITONEUM: No ascites. RETROPERITONEUM: No mass or adenopathy. VASCULATURE: No abdominal aortic aneurysm. MUSCULOSKELETAL: No acute findings. OTHER: No other abnormality. IMPRESSION: 1. Limited evaluation of the hepatic and renal lesions due to acombination of respiratory motion and MRI artifact. Consider follow-up CT in 6months. THIS IS AN ELECTRONICALLY VERIFIED FINAL REPORT 04/25/2023 2:51 PM - Electronically signed by Mars Doll M.D. JA: JAYLEEN Report ID: [id number] Reading Location: [place] [address] Marixa San NETWORK PROGRAM MANAGER IMG MRI PROCEDURES Final Result documented in this encounter Visit Diagnoses Diagnosis Nodule of kidney- Primary Nodule of kidney documented in this encounter Care Teams Sterilization Tech Relationship Specialty Start Date End Date Servando Torre MD [address] [facility] [address] [place] [address] PCP - General Family Medicine 06/19/22 Mariela Denton MD [address] [place] [address] Referring Physician Gastroenterology 06/19/22 Lexis Barroso OD [address] [place] [id number] Weighbridge Operator 09/19/22 documented as of this encounter
--- OUTSIDE RECORDS SUMMARY | 2024-07-12 19:44 | XMS_ITS | Encounter Summary ---
Author Organization [facility] Medical Group Address [address] [facility] [address] [place] [address] Care Team Providers Care Care Nurse Rn Name Role Phone Servando Torre MD Primary Care Provider +1- [phone] Mariela Denton MD Unavailable +1 -[phone] Lexis Barroso OD Unavailable +1- [phone] Encounter Details Date Type Department Care Team (Late st Contact Info) Description 03/21/2023 3:00 PM CDT Lab [facility] Medical [facility] Outpatient Lab at [address] [address] Nodule of kidney (Primary Dx) Social History [...] on file 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 Gender Identity Female 04/05/2022 6:17 PM CDT Sexual Orientation Straight 04/05/2022 6: 17 PM CDT documented as of this encounter Plan of Treatment Not on file documented as of this encounter Visit Diagnoses Diagnosis Nodule of kidney- Primary documented in this encounter Care Teams Care Nurse Rn Relationship Specialty Start Date End Date Servando Torre MD [address] [facility] [address] [place] [address] PCP - General Family Medicine 06/19/22 Mariela Denton MD [address] [place] [address] Referring Physician Gastroenterology 06/19/22 Lexis Barroso OD [address] [place] [address] Trailer Rental Clerk 09/19/22 documented as of this encounter
--- OUTSIDE RECORDS SUMMARY | 2024-07-12 19:44 | XMS_ITS | Encounter Summary ---
Author Organization [facility] Healthcare Address [address] [place] [address] Care Team Providers Care Climatology Teacher Name Role Phone Servando Torre MD Primary Care Provider [phone] Mariela Denton MD Unavailable [phone] -[phone] Lexis Barroso OD Unavailable +1- [phone] Reason for Visit * Reason Onset Date Comments Medical Question/Miscellaneous 05/15/2023 Encounter Details Date Type Department Care Team (Late st Contact Info) Description 05/15/2023 Telephone [facility] Primary Care at [place] [address] [place] [address] Servando Torre MD [address] [place] [address] [address] [place] [address] Medical Question/Miscellaneous Social History Tobacco [...] on file 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 She would like to speak with a nurse or medical assistance if possible. Provider to provider call - CS transferred to back line. Caller???s Call back #: [phone] Does message need to be routed? No documented in this encounter Plan of Treatment Not on file documented as of this encounter Visit Diagnoses Not on filedocumented in this encounter Care Teams Climatology Teacher Relationship Specialty Start Date End Date Servando Torre MD [address] [address] PCP - General Family Medicine 06/19/22 Mariela Denton MD [address] [place] [address] Referring Physician Gastroenterology 06/19/22 Lexis Barroso OD [address] [place] [address] Wardrobe Assistant 09/19/22 documented as of this encounter
--- OUTSIDE RECORDS SUMMARY | 2024-07-12 19:44 | XMS_ITS | Encounter Summary ---
Author Organization [facility] Medical Group Address [address] [facility] [address] [place] [address] Care Team Providers Care Mathematical Sciences Professor Name Role Phone Servando Torre MD Primary Care Provider [phone]- [phone] Mariela Denton MD Unavailable [phone] -[phone] Lexis Barroso OD Unavailable [phone]- [phone] Encounter Details Date Type Department Care Team (Late st Contact Info) Description 04/01/2023 Telephone [facility] Medical [facility] Primary Care at [address] [address] Regina Loo MA Social History [...] on file 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 Gender Identity Female 04/05/2022 6:17 PM CDT Sexual Orientation Straight 04/05/2022 6: 17 PM CDT documented as of this encounter Ordered Prescriptions Prescription Sig Dispense Quantity Refills Last Filled Start Date End Date ferrous sulfate ER 324 mg (65 mg iron) EC tabletIndications: Iron Deficiency Anemia Take 1 tablet (324 mg total) by mouth daily with breakfast 90 tablet 1 04/01/2023 documented in this encounter Miscellaneous Notes * Telephone Encounter - Regina Loo MA - 04/01/2023 1:46 PM CDT Refill request from [facility] for Ferrous Sulfate 324mg EC tab Last fill 10/10/22 Last ov 03/27/23 documented in this encounter Plan of Treatment Not on file documented as of this encounter Visit Diagnoses Not on filedocumented in this encounter Discontinued Medications Medication Sig Discontinue Reason Start Date End Da te ferrous sulfate ER 324 mg (65 mg iron) EC tabletIndications:Iron Deficiency Anemia Take 1 tablet (324 mg total) by mouth daily with breakfast Reorder 10/10/2022 04/01/2023 documented as of this encounter Care Teams Mathematical Sciences Professor Relationship Specialty Start Date End Date Servando Torre MD [address] [address] PCP - General Family Medicine 06/19/22 Mariela Denton MD [address] [place] [address] Referring Physician Gastroenterology 06/19/22 Lexis Barroso OD [address] [place] [address] Hospice Fellow 09/19/22 documented as of this encounter
--- OUTSIDE RECORDS SUMMARY | 2024-07-12 19:44 | XMS_ITS | Encounter Summary ---
Author Organization [facility] Healthcare Address [address] [place] [address] Care Team Providers Care Turfgrass Technician Name Role Phone Servando Torre MD Primary Care Provider [phone]- [phone] Mariela Denton MD Unavailable [phone] -[phone] Lexis Barroso OD Unavailable [phone]- [phone] Reason for Referral * MRI/CAT/PET Scan (Routine) - Closed Specialty Diagnoses / Procedures Referred By Angel braswell Referred To Contact Radiology Diagnoses Nodule of kidney Procedures MRI Abdomen Kidney W WO Contrast Marixa San NP [address] [place] [address] Phone: tel: fax: [address] [address] Referral ID Status Reason Start Date Expiration Date Visits Re quested Visits Authorized [id number] Closed 03/21/2023 04/19/2024 1 1 Reason for Visit * MRI/CAT/PET Scan (Routine) - Closed Specialty Diagnoses / Procedures Referred By Contclemencia braswell Referred To Contact Radiology Diagnoses Nodule of kidney Procedures MRI Abdomen Kidney W WO Contrast Marixa San NP [address] [place] [address] Phone: tel: fax: [address] [address] Referral ID Status Reason Start Date Expiration Date Visits Re quested Visits Authorized [id number] Closed 03/21/2023 04/19/2024 1 1 Encounter Details Date Type Department Care Team (Latest Contact Info) Description 04/24/2023 7:51 AM CDT - 04/24/2023 11:59 PM CDT Hospital Encounter [facility] [address] [place] [address] Nodule of kidney Discharge Disposition: Discharge to home or self [...] on file 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 Call office with update early in week 6 for further instructions. 168 tablet 04/21/2023 3 levETIRAcetam (KEPPRA) 500 mg tablet Take 1 tablet (500 mg total) by mouth 2 (two) times a day 60 tablet 11 03/17/2023 3 mesalamine (APRISO) 0.375 gram 24 hr [...] 2 (two) times a day 02/20/2023 3 Pain Reliever ES,acetaminophn, 500 mg tablet [...] Name Priority Date/Time Associated Diagnosis Comments MRI ABDOMEN KIDNEY W WO CONTRAST Schedule Routine, Read Routine (OP Routine) 04/24/2023 9:07 AM CDT Nodule of kidney documented in this encounter Results * MRI Abdomen Kidney [...] signed by ??Mars Doll M.D. JA: JAYLEEN D: ??04/25/2023 2:51 PM T: ??04/25/2023 2:51 PM Report ID: [id number] Reading Location: ??[id number] Procedure Note Mars Doll MD - 04/25/2023 [...] Mars Doll M.D. JA: JAYLEEN Report ID: [id number] Reading Location: [place] [address] Marixa San MINGLER OPERATOR IMG MRI PROCEDURES Final Result documented in this encounter Visit Diagnoses Diagnosis Nodule of kidney documented in this encounter Administered Medications Inactive Administered Medications - up to 3 most recent administrations Medication Order MAR Action Action Date Dose Rate Site gadoterate meglumine injection 20 mL 20 mL, intravenous, Once in imaging, contrast, Starting on Afua 04/24/23 at 0909, For 1 dose Contrast Given 04/24/2023 9:09 AM CDT 20 mL documented in this encounter Care Teams Turfgrass Technician Relationship Specialty Start Date End Date Servando Torre MD [address] [facility] [address] [place] [address] PCP - General Family Medicine 06/19/22 Mariela Denton MD [address] [place] [address] Referring Physician Gastroenterology 06/19/22 Lexis Barroso OD [address] [place] [id number] Mayonnaise Mixer 09/19/22 documented as of this encounter
--- OUTSIDE RECORDS SUMMARY | 2024-07-12 19:44 | XMS_ITS | Encounter Summary ---
Author Organization [facility] Address [address] [place] [address] Phone Care Team Providers Care Medical Data Analyst Name Role Phone Servando Torre MD Primary Care Provider [phone] [phone] Mariela Denton MD Unavailable [phone] [phone] Lexis Barroso OD Unavailable +1- [phone] Encounter Details Date Type Department Care Team (Late st Contact Info) Description 05/05/2023 2:30 PM CDT Office Visit [facility] Epilepsy [address] [facility] 6th [place] [address] [place] [address] Adria Burleson MD [address] [facility] [address] [place] [address] Localization-related symptomatic epilepsy and epileptic [...] on file 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 Gender Identity Female 04/05/2022 6:17 PM CDT Sexual Orientation Straight 04/05/2022 6: 17 PM CDT documented as of this encounter Last Filed Vital Signs Vital Sign Reading Time Taken Comments Blood Pressure 143/81 05/05/2023 2:21 PM CDT Pulse 68 05/05/2023 2:21 PM CDT Temperature - - Respiratory Rate - - Oxygen Saturation - - Inhaled Oxygen Concentration - - Weight 68 kg (150 lb) 05/05/2023 2:21 PM CDT Height 157.5 cm (5' 2 ) 05/05/2023 2:21 PM CDT Body Mass Index 27.44 05/05/2023 2:21 PM CDT documented in this encounter Progress Notes * Adria Burleson MD - 05/05/2023 2:30 PM CDT Patient Name: RADHA ALLEN Date of (): 1945 Encounter Date: 05/05/2023 PCP: Servando Torre MD Provider: Raj Ceidllo MD Chief complaint: seizure Interval history: -No additional seizures -Agitations and sleepiness, thus Keppra replaced with LTG -Tolerating LTG well so far -No other complaints -Memory deficits persist 78 [...] history from last visit: Fall while in [place]30/2023 [place] for a family reunion [...] history: Epilepsy Risk Factors: Febrile seizure(s): No LOCK SETTER 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 -EEG at [facility] on 03/07/2023: This is an abnormal awake and stage I and II sleep extended EEG due to 1)occasional, right frontotemporal, poorly formed epileptiform discharges and 2) intermittent right temporal slowing. -Bone density/DEXA scan 12/12/2022: Bone mineral density shows evidence of low bone mass at the lumbar spine and proximal femur and moderately increased fracture risk (osteopenia) Current ASMs: -LTG 25 mg bid (uptitrating) Prior ASMs: -Keppra (mood issues) ----- Physical Exam Vital Signs Vitals: 05/05/23 1421 BP: 143/81 BP Location: Right arm Patient Position: Sitting Pulse: 68 Weight: 68 kg (150 lb) Height: 157.5 cm (5' 2 ) [...] swing. 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 OSH MRI showed L splenium of CC chronic hemorrhage/encephalomalacia/gliosis and scattered microhemorrhages and generalized atrophy. [facility] EEG showed right fr ontotemporal epileptiform discharges and slowing. Keppra dc'ed due to agitations and sleepiness. Noseizure recurrence. Recs: -Continue LTG taper: final tentative dose 100 mg bid --Discussed side effects including rash, in which case she should stop taking LTG and call us --Monitor for toxicity -Seizure precautions -MRI brain (epilepsy protocol) -Continue to follow with Dr. Nicolas / memory clinic -Cardiology apptm scheduled All questions answered. RTC in 1-2 months. Adria Anthony Seizure precautions including no driving for at least 6 months after last seizure, heights, swimming or bathing alone, operating heavy machinery or other activities during which a seizure would endanger her or others were discussed. My total encounter time on 05/05/2023 was 45 minutes which was spent in the activities [...] Primary documented in this encounter Care Teams Medical Data Analyst Relationship Specialty Start Date End Date Servando Torre MD [address] [facility] [address] [place] [address] PCP - General Family Medicine 06/19/22 Mariela Denton MD [address] [place] [address] Referring Physician Gastroenterology 06/19/22 Lexis Barroso OD [address] [place] [address] Filter Tip Catcher 09/19/22 documented as of this encounter
--- OUTSIDE RECORDS SUMMARY | 2024-07-12 19:44 | XMS_ITS | Encounter Summary ---
Author Organization [facility] Medical Group Address [address] [facility] [address] [place] [address] Care Team Providers Care Freight Solicitor Name Role Phone Servando Torre MD Primary Care Provider +1- [phone] Mariela Denton MD Unavailable +1 -[phone] Lexis Braroso OD Unavailable +1- [phone] Encounter Details Date Type Department Care Team (Late st Contact Info) Description 04/26/2023 Orders Only [facility] Medical [facility] Primary Care at [place] [address] [place] [address] Marixa San NP [address] [facility] [address] [place] [address] Liver nodule (Primary Dx); Renal lesion Social History Tobacco Use Types Packs/Day Years [...] on file 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 Gender Identity Female 04/05/2022 6:17 PM CDT Sexual Orientation Straight 04/05/2022 6: 17 PM CDT documented as of this encounter Plan of Treatment Not on file documented as of this encounter Visit Diagnoses Diagnosis Liver nodule- Primary Other specified disorders of liver Renal lesion documented in this encounter Care Teams Freight Solicitor Relationship Specialty Start Date End Date Servando Torre MD [address] [address] PCP - General Family Medicine 06/19/22 Mariela Denton MD [address] [place] [address] Referring Physician Gastroenterology 06/19/22 Lexis Barroso OD [address] [place] [address] Shoe Folder 09/19/22 documented as of this encounter
--- OUTSIDE RECORDS SUMMARY | 2024-07-12 19:44 | XMS_ITS | Encounter Summary ---
Author Organization [facility] Medical Group Address [address] [facility] [address] [place] [address] Care Team Providers Care Medical Coordinator Pesticide Use Name Role Phone Servando Torre MD Primary Care Provider [phone]- [phone] Mariela Denton MD Unavailable [phone] [phone] Lexis Barroso OD Unavailable +1- [phone] Reason for Visit * Reason Comments Follow-up 3 month f/u Encounter Details Date Type Department Care Team (Late st Contact Info) Description 03/27/2023 2:00 PM CDT Office Visit [facility] Primary Care at [address] [address] Servando Torre MD [address] [place] [address] [address] [place] [address] Primary hypertension (Primary Dx); Prediabetes; Localization-related symptomatic epilepsy and epileptic syndromes with complex partial seizures, not intractable, without status epilepticus (CMS/HCC) (HCC); Need for pneumococcal 20-valent conjugate vaccination Social History Tobacco Use Types Packs/Day Years [...] on file 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 Gender Identity Female 04/05/2022 6:17 PM CDT Sexual Orientation Straight 04/05/2022 6: 17 PM CDT documented as of this encounter Last Filed Vital Signs Vital Sign Reading Time Taken Comments Blood Pressure 122/80 03/27/2023 2:29 PM CDT Pulse 67 03/27/2023 2:29 PM CDT Temperature 36.6 ??C (97.8 ??F) 03/27/2023 2:29 PM CD T Respiratory Rate 18 03/27/2023 2:29 PM CDT Oxygen Saturation 94% 03/27/2023 2:29 PM CDT Inhaled Oxygen Concentration - - Weight 70.8 kg (156 lb) 03/27/2023 2:29 PM CDT Height 157.5 cm (5' 2 ) 03/27/2023 2:29 PM CDT Body Mass Index 28.53 03/27/2023 2:29 PM CDT documented in this encounter Patient Instructions * Patient Instructions* Servando Torre MD - 03/27/2023 2:00 PM CDT No changes today Awaiting MRI next month Continuing current regimen Thanks for coming in today! My medical assistants and I are thankful you have trusted us with your care, and hope that you received EXCELLENT care today! Please do not hesitate to call if you have any questions or concerns at [phone]. You may receive a phone call, text, MYCHART message, or e-mail asking about your care today. We would love to hear your feedback on how EXCELLENT your care wastoday! Wishing you better health, always. Dr. Torre documented in this encounter Progress Notes * Servando Torre MD - 03/27/2023 2:00 PM CDT Images from the original note were not included. Subjective/Objective Patient ID: Lisa Allen is a 78 y.o. female. Chief Complaint Follow-up (3 month f/u) Lisa seems to be doing a bit better. She had a birthday a couple days ago. She and her daughter and granddaughter deny any recent seizure activity, but she did have 3 earlier in the period since ourlast visit. She is tolerating Keppra. Hypertension This is a chronic problem. The problem is controlled. Pertinent negatives include no anxiety, blurred vision, chest pain, headaches, malaise/fatigue, neck pain, orthopnea, palpitations, peripheral edema, PND, shortness of breath or sweats. Agents associated with hypertension include steroids. Past treatments include calcium channel blockers. Hyperlipidemia This is a chronic problem. She has no history of diabetes or obesity. Pertinent negatives include no chest pain or shortness of breath. Current antihyperlipidemic treatment includes statins and diet change. Risk factors for coronary artery disease include hypertension and dyslipidemia. Current Outpatient Medications: acetaminophen-codeine (TYLENOL with CODEINE #3) 300-30 mg per tablet, Take 1 tablet by mouth every 6 (six) hours as needed for pain, Disp: 21 tablet, Rfl: 0 amLODIPine (NORVASC) 5 mg tablet, Take 1 tablet (5 mg total) by mouth daily, Disp: 90 tablet, Rfl: 1 aspirin 81 mg enteric coated tablet, Take 1 tablet (81 mg total) by mouth daily, Disp: , Rfl: azaTHIOprine (IMURAN) 100 mg tablet, Take 1 tablet (100 mg total) by mouth daily Safety labs required every 3 months for med refills, next labs due by the end of 01/2023., Disp: 90 tablet, Rfl: 0 calcium citrate-vitamin D3 250 mg-5 mcg [...] with breakfast, Disp: 90 tablet, Rfl: 1 gabapentin (NEURONTIN) 100 mg capsule, Take 1 capsule (100 mg total) by mouth 3 (three) times a day, Disp: , Rfl: Lactobacillus acidophilus (PROBIOTIC ORAL), Take by mouth, Disp: , Rfl: levETIRAcetam (KEPPRA) 500 mg tablet, Take 1 tablet (500 mg total) by mouth 2 (two) times a day, Disp: 60 tablet, Rfl: 11 lidocaine (ASPERCREME) 4 % adhesive patch,medicated, Apply 1 patch topically nightly, Disp: 30 patch, Rfl: 1 mesalamine (APRISO) 0.375 gram 24 hr capsule, Take 4 capsules (1.5 g total) by mouth daily, Disp: 120 capsule, Rfl: 11 metFORMIN (GLUCOPHAGE) 850 mg tablet, Take 1 tablet (850 mg total) by mouth 2 (two) times a day with meals, Disp: 60 tablet, Rfl: 2 metoprolol tartrate (LOPRESSOR) 50 mg immediate release [...] blood glucose, Disp: 50 each, Rfl: 11 oxyCODONE (ROXICODONE) 5 mg immediate release tablet, TAKE 1 TABLET BY MOUTH EVERY 6 HOURS NEEDED FOR MODERATE PAIN FOR UP TO 7 DAYS . DO NOT EXCEED 4 PER 24 HOURS, Disp: , Rfl: Pain Reliever ES,acetaminophn, 500 mg tablet, Take 2 tablets (1,000 mg total) by mouth every 8 (eight) hours, Disp: , Rfl: pantoprazole DR (PROTONIX) 40 mg EC tablet, Take 1 tablet (40 mg total) by mouth daily, Disp: 90 tablet, Rfl: 1 pravastatin (PRAVACHOL) 40 mg tablet, Take 1 tablet (40 mg total) by mouth daily, Disp: 90 tablet, Rfl: 1 Saccharomyces boulardii (FLORASTOR) 250 mg capsule, Take by mouth, Disp: , Rfl: tiZANidine (ZANAFLEX) 2 mg tablet, Take 1 tablet (2 mg total) by mouth every 6 (six) hours as needed for muscle spasms, Disp: 120 tablet, Rfl: 1 vedolizumab (ENTYVIO) 300 mg recon soln, Infuse 5 mL (300 mg total) into a venous catheter every 8 (eight) weeks, Disp: , Rfl: Review of Systems Constitutional: Negative for malaise/fatigue. Eyes: Negative for blurred vision. Respiratory: Negative for shortness of breath. Cardiovascular: Negative for chest pain, palpitations, orthopnea and PND. Musculoskeletal: Negative for neck pain. Neurological: Negative for headaches. BP 122/80 (BP Location: Left arm, Patient Position: Sitting) Pulse 67 Temp 36.6 ??C (97.8 ??F) (Temporal) Resp 18 Ht 157.5 cm (5' 2 ) Wt 70.8 kg (156 lb) SpO2 94% BMI 28.53 kg/m?? Physical Exam Vitals reviewed. Constitutional: Appearance: She is overweight. Cardiovascular: Rate and Rhythm: Normal rate and regular rhythm. Pulmonary: Breath sounds: No wheezing, rhonchi or rales. Neurological: Mental Status: She is alert and oriented to person, place, and time. Mental status is at baseline. Psychiatric: Mood and Affect: Mood normal. Hospital Outpatient Visit on 03/21/2023 Component Date Value Ref Range Status WBC 03/21/2023 7.0 3.8 - 9.9 K/cumm Final Hgb 03/21/2023 13.6 11.9 - 15.5 g/dL Final Hct 03/21/2023 43.5 35.6 - 45.5 % Final Plt 03/21/2023 313 150 - 400 K/cumm Final MPV 03/21/2023 9.7 9.1 - 12.3 fL Final RBC 03/21/2023 4.52 3.90 - 5.20 M/cumm Final MCV 03/21/2023 96.2 81.3 - 96.4 fL Final MCH 03/21/2023 30.1 27.1 - 33.3 pg Final MCHC 03/21/2023 31.3 (L) 32.3 - 35.7 g/dL Final RDW CV 03/21/2023 15.6 (H) 11.1 - 14.9 % Final RDW SD 03/21/2023 54.9 (H) 35.7 - 48.1 fL Final NRBC abs 03/21/2023 0.02 (H) 0.00 - 0.01 K/cumm Final Albumin Ur 03/21/2023 260.7 mg/L Final Comment: Interpretive Data No reference range established. Current interpretive data was last revised 2018. Creatinine Ur 03/21/2023 234.1 mg/dL Final Comment: Interpretive Data No reference range established. Current interpretive data was last revised 2018. Albumin Creatinine Ratio, Ur 03/21/2023 111 (H) 1 - 29 mg/g Final Hgb A1C 03/21/2023 6.1 (H) 4.0 - 5.6 % Final Estimated Average Glucose 03/21/2023 128 mg/dL Final Comment: The ADA recommends reporting an estimated Average Glucose (eAG) with all Hemoglobin A1c results using the equation derived from a study of 507 normal and diabetic adults. Minority populations were underrepresented and children were not included. (Diabetes Care 31:5480-8415, 2008). The eAG is not equivalent to a fasting glucose. Cholesterol 03/21/2023 181 30 - 199 mg/dL Final Comment: Interpretive Data Ages < or = 19 years Acceptable: <170 mg/dL Borderline high: 170-199 mg/dL High: >or= 200 mg/dL Ages > or = 20 years Desirable: <200 mg/dL Borderline high: 200-239 mg/dL High: >or= 240 mg/dL Literature References: 1. Expert Panel on Integrated Guidelines for Cardiovascular Health and Risk Reduction in Children and Adolescents. Pediatrics 2011;128:S213 2. NCEP Expert Panel. Circulation 2004;110:227 Current Interpretive Data was last revised on 2018. Triglycerides 03/21/2023 191 (H) <=149 mg/dL Final Comment: Interpretive Data Ages < or = 9 years Acceptable: <75 mg/dL Borderline high: 75-99 mg/dL High: >or= 100 mg/dL Ages 10 to 20 years Acceptable: <90 mg/dL Borderline high: 90-129 mg/dL High: >or= 130 mg/dL Ages > or = 20 years Desirable: <150 mg/dL Borderline high: 150-199 mg/dL High: 200-499 mg/dL Very high: >or= 499 mg/dL Literature References: 1. Expert Panel on Integrated Guidelines for Cardiovascular Health and Risk Reduction in Children and Adolescents. Pediatrics 2011;128:S213 2. NCEP Expert Panel. Circulation 2004;110:227 Current Interpretive Data was last revised on 2018. HDL 03/21/2023 54 >=40 mg/dL Final Comment: Interpretive Data Ages < or = 19 years Acceptable: >45 mg/dL Borderline low: 40-45 mg/dL Low: <40 mg/dL Ages > or = 20 years Desirable: >or= 60 mg/dL Low: <40 mg/dL Literature References: 1. Expert Panel on Integrated Guidelines for Cardiovascular Health and Risk Reduction in Children and Adolescents. Pediatrics 2011;128:S213 2. NCEP Expert Panel. Circulation 2004;110:227 Current Interpretive Data was last revised on 2018. LDL, calculated 03/21/2023 89 <=129 mg/dL Final Comment: Interpretive Data Ages < or = 19 years Acceptable: <110 mg/dL Borderline high: 110-129 mg/dL High: >or= 130 mg/dL Ages > or = 20 years Optimal: <100 mg/dL Near optimal: 100-129 mg/dL Borderline high: 130-159 mg/dL High: >160 mg/dL Literature References: 1. Expert Panel on Integrated Guidelines for Cardiovascular Health and Risk Reduction in Children and Adolescents. Pediatrics 2011;128:S213 2. NCEP Expert Panel. Circulation 2004;110:227 Current Interpretive Data was last revised on 2018. Non-HDL Cholesterol 03/21/2023 127 mg/dL Final Comment: Interpretive Data Ages < or = 19 years Acceptable: <120 mg/dL Borderline high: 120-144 mg/dL High: >145 mg/dL Ages > or = 20 years When triglycerides are >200 mg/dL, Non-HDL cholesterol is a secondary target of therapy with treatment goals that are 30 mg/dL greater than the LDL cholesterol target. Literature References: 1. Expert Panel on Integrated Guidelines for Cardiovascular Health and Risk Reduction in Children and Adolescents. Pediatrics 2011;128:S213 2. NCEP Expert Panel. Circulation 2004;110:227 Current Interpretive Data was last revised on 2018. Chol/HDL ratio 03/21/2023 3 Final Sodium 03/21/2023 141 135 - 145 mmol/L Final Potassium, pl 03/21/2023 3.9 3.3 - 4.9 mmol/L Final Chloride 03/21/2023 102 97 - 110 mmol/L Final CO2 03/21/2023 29 22 - 32 mmol/L Final Anion gap 03/21/2023 10 2 - 15 mmol/L Final BUN 03/21/2023 12 6 - 25 mg/dL Final Creatinine 03/21/2023 0.79 0.60 - 1.10 mg/dL Final Glucose 03/21/2023 130 70 - 199 mg/dL Final [...] interpretive data was last revised 2022. Calcium 03/21/2023 9.7 8.5 - 10.3 mg/dL Final Bilirubin, total 03/21/2023 0.3 0.1 - 1.2 mg/dL Final Protein, pl 03/21/2023 6.9 6.5 - 8.5 g/dL Final Albumin 03/21/2023 4.2 3.5 - 5.0 g/dL Final Alk phos 03/21/2023 84 40 - 130 Units/L Final ALT 03/21/2023 62 (H) 7 - 45 Units/L Final AST 03/21/2023 46 (H) 10 - 45 Units/L Final Neutrophil abs 03/21/2023 4.2 1.7 - 6.5 K/cumm Final Imm gran abs 03/21/2023 0.0 0.0 - 0.1 K/cumm Final Lymphocyte abs 03/21/2023 1.9 0.8 - 3.3 K/cumm Final Monocyte abs 03/21/2023 0.6 0.2 - 0.8 K/cumm Final Eosinophil abs 03/21/2023 0.2 0.0 - 0.5 K/cumm Final Basophil abs 03/21/2023 0.1 0.0 - 0.1 K/cumm Final Neutrophil pct 03/21/2023 59.6 % Final Comment: Interpretive Data Percent cell count reference ranges are not reported, since discordance with absolute values may lead to misinterpretation of CBC data. Current Interpretive Data was last revised on 2017. Imm gran pct 03/21/2023 0.4 % Final Comment: Interpretive Data Percent cell count reference ranges are not reported, since discordance with absolute values may lead to misinterpretation of CBC data. Current Interpretive Data was last revised on 2017. Lymphocyte pct 03/21/2023 27.6 % Final Comment: Interpretive Data Percent cell count reference ranges are not reported, since discordance with absolute values may lead to misinterpretation of CBC data. Current Interpretive Data was last revised on 2017. Monocyte pct 03/21/2023 8.8 % Final Comment: Interpretive Data Percent cell count reference ranges are not reported, since discordance with absolute values may lead to misinterpretation of CBC data. Current Interpretive Data was last revised on 2017. Eosinophil pct 03/21/2023 2.9 % Final Comment: Interpretive Data Percent cell count reference ranges are not reported, since discordance with absolute values may lead to misinterpretation of CBC data. Current Interpretive Data was last revised on 2017. Basophil pct 03/21/2023 0.7 % Final Comment: Interpretive Data Percent cell count reference ranges are not reported, since discordance with absolute values may lead to misinterpretation of CBC data. Current Interpretive Data was last revised on 2017. eGFR 03/21/2023 76 mL/min/1.73 m2 Final Comment: Interpretive Data Reference Interval Normal >/= 90 mL/min/1.73m2 Mildly decreased* 60 - 89 mL/min/1.73m2 Mildly to moderately decreased 45 - 59 mL/min/1.73m2 Moderately to severely decreased 30 - 44 mL/min/1.73m2 Severely decreased 15 - 29 mL/min/1.73m2 Kidney Failure < 15 mL/min/1.73m2 *Relative to young adult level Estimated glomerular [...] Current interpretive data was last reviewed 2021. Admission on 03/08/2023, Discharged on 03/08/2023 Component Date Value Ref Range Status WBC 03/08/2023 8.0 3.8 - 9.9 K/cumm Final Hgb 03/08/2023 14.1 11.9 - 15.5 g/dL Final Hct 03/08/2023 43.1 35.6 - 45.5 % Final Plt 03/08/2023 270 150 - 400 K/cumm Final MPV 03/08/2023 9.6 9.1 - 12.3 fL Final RBC 03/08/2023 4.55 3.90 - 5.20 M/cumm Final MCV 03/08/2023 94.7 81.3 - 96.4 fL Final MCH 03/08/2023 31.0 27.1 - 33.3 pg Final MCHC 03/08/2023 32.7 32.3 - 35.7 g/dL Final RDW CV 03/08/2023 15.5 (H) 11.1 - 14.9 % Final RDW SD 03/08/2023 53.9 (H) 35.7 - 48.1 fL Final NRBC abs 03/08/2023 0.02 (H) 0.00 - 0.01 K/cumm Final Sodium 03/08/2023 139 135 - 145 mmol/L Final Potassium, pl 03/08/2023 3.9 3.3 - 4.9 mmol/L Final Chloride 03/08/2023 97 97 - 110 mmol/L Final CO2 03/08/2023 25 22 - 32 mmol/L Final Anion gap 03/08/2023 17 (H) 2 - 15 mmol/L Final BUN 03/08/2023 14 6 - 25 mg/dL Final Creatinine 03/08/2023 0.70 0.60 - 1.10 mg/dL Final Glucose 03/08/2023 128 70 - 199 mg/dL Final Comment: Interpretive [...] interpretive data was last revised 2022. Calcium 03/08/2023 10.2 8.5 - 10.3 mg/dL Final Bilirubin, total 03/08/2023 0.5 0.1 - 1.2 mg/dL Final Protein, pl 03/08/2023 7.4 6.5 - 8.5 g/dL Final Albumin 03/08/2023 4.5 3.5 - 5.0 g/dL Final Alk phos 03/08/2023 79 40 - 130 Units/L Final ALT 03/08/2023 39 7 - 45 Units/L Final AST 03/08/2023 34 10 - 45 Units/L Final Comment: Hemolysis present. Results may be affected. Slightly Hemolyzed Specimen Magnesium 03/08/2023 1.9 1.4 - 2.5 mg/dL Final Neutrophil abs 03/08/2023 5.7 1.7 - 6.5 K/cumm Final Imm gran abs 03/08/2023 0.0 0.0 - 0.1 K/cumm Final Lymphocyte abs 03/08/2023 1.7 0.8 - 3.3 K/cumm Final Monocyte abs 03/08/2023 0.5 0.2 - 0.8 K/cumm Final Eosinophil abs 03/08/2023 0.1 0.0 - 0.5 K/cumm Final Basophil abs 03/08/2023 0.0 0.0 - 0.1 K/cumm Final Neutrophil pct 03/08/2023 70.8 % Final Comment: Interpretive Data Percent cell count reference ranges are not reported, since discordance with absolute values may lead to misinterpretation of CBC data. Current Interpretive Data was last revised on 2017. Imm gran pct 03/08/2023 0.5 % Final Comment: Interpretive Data Percent cell count reference ranges are not reported, since discordance with absolute values may lead to misinterpretation of CBC data. Current Interpretive Data was last revised on 2017. Lymphocyte pct 03/08/2023 20.8 % Final Comment: Interpretive Data Percent cell count reference ranges are not reported, since discordance with absolute values may lead to misinterpretation of CBC data. Current Interpretive Data was last revised on 2017. Monocyte pct 03/08/2023 6.7 % Final Comment: Interpretive Data Percent cell count reference ranges are not reported, since discordance with absolute values may lead to misinterpretation of CBC data. Current Interpretive Data was last revised on 2017. Eosinophil pct 03/08/2023 1.0 % Final Comment: Interpretive Data Percent cell count reference ranges are not reported, since discordance with absolute values may lead to misinterpretation of CBC data. Current Interpretive Data was last revised on 2017. Basophil pct 03/08/2023 0.2 % Final Comment: Interpretive Data Percent cell count reference ranges are not reported, since discordance with absolute values may lead to misinterpretation of CBC data. Current Interpretive Data was last revised on 2017. eGFR 03/08/2023 88 mL/min/1.73 m2 Final Comment: Interpretive Data Reference Interval Normal >/= 90 mL/min/1.73m2 Mildly decreased* 60 - 89 mL/min/1.73m2 Mildly to moderately decreased 45 - 59 mL/min/1.73m2 Moderately to severely decreased 30 - 44 mL/min/1.73m2 Severely decreased 15 - 29 mL/min/1.73m2 Kidney Failure < 15 mL/min/1.73m2 *Relative to young adult level Estimated glomerular [...] Current interpretive data was last reviewed 2021. Assessment/Plan Diagnoses and all orders for this visit: Primary hypertension (Primary) Comments: BP is controlled continuing amlodipine Prediabetes Comments: continuing metformin Localization-related symptomatic epilepsy and epileptic syndromes with complex partial seizures, not intractable, without status epilepticus (CMS/HCC) (HCC) Comments: continues follow up [facility] neuro tolerating Keppra Need for pneumococcal 20-valent conjugate vaccination - Pneumococcal conjugate vaccine 20-valent IM (Prevnar-20) Servando Torre MD This office note has been partially dictated using indeni software, and as a result portions of the record may have been created with this software. Occasional wrong-word or 'zogic-d-obop' substitutions may have occurred due to the inherent limitations of voice recognition software. Read the chartcarefully and recognize, using context, where substitutions have occurred. documented in this encounter Plan of Treatment Not on file documented as of this encounter Procedures Procedure Name Priority Date/Time Associated Diagnosis Comments DIABETES EYE EXAM Routine 11/29/2022 documented in this encounter Results * DIABETES EYE EXAM (11/29/2022) Historical Provider HEALTH MAINTENANCE Final Result documented in this encounter Visit Diagnoses Diagnosis Primary hypertension- Primary Unspecified essential hypertension Prediabetes Other abnormal glucose Localization-related symptomatic epilepsy and epileptic syndromes with complex partial seizures, not intractable, without status epilepticus (HCC) Need for pneumococcal 20-valent conjugate vaccination documented in this encounter Discontinued Medications Medication Sig Discontinue Reason Start Date End Da te lidocaine (ASPERCREME) 4 % adhesive patch,medicated Apply 1 patch topically nightly Therapy completed 02/02/2023 03/27/2023 documented as of this encounter Orders Immunization/Injection Count Last Ordered Date First Ordered Date PNEUMOCOCCAL CONJUGATE VACCI NE 20 VALENT IM 1 03/27/2023 documented in this encounter Care Teams Medical Coordinator Pesticide Use Relationship Specialty Start Date End Date Servando Torre MD [address] [facility] [address] [place] [address] PCP - General Family Medicine 06/19/22 Mariela Denton MD [address] [place] [address] Referring Physician Gastroenterology 06/19/22 Lexis Barroso OD [address] [place] [id number] Travel Rn Or 09/19/22 documented as of this encounter
--- OUTSIDE RECORDS SUMMARY | 2024-07-12 19:44 | XMS_ITS | Encounter Summary ---
Author Organization [facility] Medical Group Address [address] [facility] [address] [place] [address] Care Team Providers Care Harness Worker Name Role Phone Servando Torre MD Primary Care Provider [phone]- [phone] Mariela Denton MD Unavailable [phone] [phone] Lexis Barroso OD Unavailable [phone]- [phone] Reason for Visit * Reason Onset Date Comments Medical Question/Miscellaneous 03/17/2023 Encounter Details Date Type Department Care Team (Late st Contact Info) Description 03/17/2023 Telephone [facility] Medical [facility] Primary Care at [address] [address] Servando Torre MD [address] [place] [address] [address] [place] [address] Medical Question/Miscellaneous Social History Tobacco [...] on file 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 Caller???s Call back #: [phone] Does message need to be routed? Yes-FYI Only documented in this encounter Plan of Treatment Not on file documented as of this encounter Visit Diagnoses Not on filedocumented in this encounter Care Teams Harness Worker Relationship Specialty Start Date End Date Servando Torre MD Formerly named [facility] [address] [address] PCP - General Family Medicine 06/19/22 Mariela Denton MD [address] [place] [address] Referring Physician Gastroenterology 06/19/22 Lexis Barroso OD [address] [place] [id number] Truck Repair Service Estimator 09/19/22 documented as of this encounter
--- OUTSIDE RECORDS SUMMARY | 2024-07-12 19:44 | XMS_ITS | Encounter Summary ---
Author Organization [facility] Address [address] [place] [address] Phone Care Team Providers Care Flower Buncher Or Picker Name Role Phone Servando Torre MD Primary Care Provider [phone] [phone] Mariela Denton MD Unavailable [phone] [phone] Lexis Barroso OD Unavailable [phone]- [phone] Encounter Details Date Type Department Care Team (Late st Contact Info) Description 05/07/2023 Telephone [facility] [address] [facility] 6th [place] [address] [place] [address] Kiara Houser Social History Tobacco Use Types Packs/Day Years [...] on file 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 05/13 at 1pm. documented in this encounter Plan of Treatment Not on file documented as of this encounter Visit Diagnoses Not on filedocumented in this encounter Care Teams Flower Buncher Or Picker Relationship Specialty Start Date End Date Servando Torre MD [address] [address] PCP - General Family Medicine 06/19/22 Mariela Denton MD [address] [place] [address] Referring Physician Gastroenterology 06/19/22 Lexis Barroso OD [address] [place] [id number] Music Theory Professor 09/19/22 documented as of this encounter
--- OUTSIDE RECORDS SUMMARY | 2024-07-12 19:44 | XMS_ITS | Encounter Summary ---
Author Organization [facility] Address [address] [place] [address] Phone Care Team Providers Care Shelf Stocker Name Role Phone Servando Torre MD Primary Care Provider [phone] Mariela Denton MD Unavailable [phone] [phone] Lexis Barroso OD Unavailable [phone]- [phone] Encounter Details Date Type Department Care Team (Late st Contact Info) Description 05/14/2023 Telephone [place] [id number] [facility] First Floor [address] [place] [address] Pablo Burt MSW Social History Tobacco Use Types Packs/Day Years [...] file 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 Tatyana joined the call part way through. Aby states that she and her daughter Tatyana (Lisa's granddaughter) are trying to care for Lisa. They state that they are unsure the amount of assistance that Lisa needs for help. Currently, Tatyana has been staying with Lisa, but this might come to an end, since Tatyana might take an assignment as a nurse soon. The family is considering next steps. They state that Lisa will sometimes state that she would be willing to live in [place], and other times will state that she does not want to live in[place]. The family has been considering giving more independence to Lisa to see if she is able to care forherself. They have setup cameras in the house and Tatyana has begun leaving for extended periods while they watch on camera. At this time, they state that as soon as Tatyana leaves that Lisa begins eating candy and other sugary foods. This SW discussed independence and determining level of care that Lsia needs. This SW agreed that they might have to let Lisa try to perform her own ADLs to see if she is able to. This SW also discussed ALFs and beginning the process of looking for an RESIDENTIAL in case it is needed. Family agreed to begin looking at local ALFs and process. This SW also discussed caregiver guilt and the feeling that they are not doing things correctly or enough. Family appears to be very caring of Lisa and attempting to do as much as possible. Tatyana vaibhav nurse and based on description of care, appears to be doing well. This SW suggested resources such as Support Groups, In-Internal Combustion Engine Inspector Care, and resources through [facility]. SW emailed the below: I'm glad we were able to talk yesterday. I've collected the resources that we discussed below and anything else that I think could help. Always feel free to reach out to us any time. Home Care Agencies Below is a list of home care agencies. These agencies do a mix of director of dance care and helping individuals with activities of daily living, like grooming and showering. Be sure to make a list of your specific needs to ensure that they are able to help in the areas that you need. I've also included a sheet from the Alzheimer's Association on how to choose a home hospice aide and what questions to ask. Additionally, some find it more helpful and less expensive to hire a private caregiver. I would suggest checking with local organizations, such as churches and local nursing/social work schools to see if they have anyone that can help with caregiving. Many caregivers have also found the website Media[employer]pike to be helpful in finding a local independent background checked aide. The website does cost money to use. [facility] [address] [place] [address] https://Smart Patients/ Eduardo Parikh ([place]) [address] [place] [id number] https://www.OnCorps.H-art ([place])/mulvane/home Home Instead [address] [place] [address] https://www.[facility].H-art ([place])/location/851 Adult Day Centers Below is the information for [facility]'s Adult Day Center. I would suggest checkingout [facility] other programs and services too: [facility] https://[facility] [place].org/ [address] [place] [address] Guides for helping to determine if someone is safe to be home alone: Below is a guide that can be useful for determining if someone is safe to be home alone. While you are testing this, please continue to be as observant as you can and have a plan to get someone to her house as quickly as possible if needed. https://alzheimer.ca/sites/default/files/documents/tqkxipeqvnmtb-dkvib-etkyofqd- nau-lhyyfs-tpbsp.pdf Home Safety Guides Whether living alone or not, here are two guides to creating a safe home for someone with dementia: https://www.jerry.nih.gov/health/hcve-hxslnb-rzc-alzheimers-disease https://www.alz.org/help-support/caregiving/safety/home-safety Fall detector, landline This device appears to only need a landline phone, it also has an optional ???Fall Detection.?? I'd suggest calling customer service and support and seeing if this meets your needs. Additionally, doyou think your Mom would be willing to wear this? https://www.ImagineOptix/product/hmys-bvghyj-uieoktvn/ Education Resources Upcoming local classes: ?[facility]'s [facility] Alzheimer Disease Research [place] presentations. These are presentations from experts in the field of dementia and dementia caregiving. There is a new presentation over Zoom every month and they keep a library of past presentations. Please check here: https://[facility]/center-events// ?The Alzheimer's Association has many monthly classes in the community. For a listing of upcoming classes, their locations, and times please contact their 17/02 Helpline at . ?[facility] Care: [place] [facility] has caregiver training classes and support groups in [place] and [place]. I'd suggest checking out their website and calling them for more information: https://[facility].org/ 604.779.3659 ?[facility] a local group focused on educating and training caregivers has a Youtube channel full of useful videos and trainings: https://www.Precyseube.com/@memorycarehomesolutions/videos Books: ?The 36 Hour Day by Ender - Yinka book on Dementia, behaviors, and caregiving strategies.Available in most bookstores and libraries. ?Creating Moment of Josette by Soila grove with tons of practical advice on caring for someone with dementia. I can't recommend this book enough. Available in many bookstores and libraries. If there is anything else that I can help you with or I missed please do not hesitate to reach out! WILLEM Sheikh documented in this encounter Plan of Treatment Not on file documented as of this encounter Visit Diagnoses Not on filedocumented in this encounter Care Teams Shelf Stocker Relationship Specialty Start Date End Date Servando Torre MD [address] [facility] [address] [place] [address] PCP - General Family Medicine 06/19/22 Mariela Denton MD [address] [place] [address] Referring Physician Gastroenterology 06/19/22 Lexis Barroso OD [address] [place] [address] Manager Women 09/19/22 documented as of this encounter
--- OUTSIDE RECORDS SUMMARY | 2024-07-12 19:44 | XMS_ITS | Encounter Summary ---
Author Organization [facility] Address [address] [facility] [address] [place] [address] Care Team Providers Care Ambulatory Nurse Name Role Phone Servando Torre MD Primary Care Provider [phone]- [phone] Mariela Denton MD Unavailable [phone] Lexis Barroso OD Unavailable [phone]- [phone] Reason for Visit * Reason Onset Date Comments Medical Question/Miscellaneous 04/03/2023 Encounter Details Date Type Department Care Team (Late st Contact Info) Description 04/03/2023 Telephone [facility] at [address] [address] Servando Torre MD [address] [place] [address] [address] [place] [address] Medical Question/Miscellaneous Social History Tobacco [...] on file 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 Caller???s Call back #: [phone] Does message need to be routed? Yes-FYI Only documented in this encounter Plan of Treatment Not on file documented as of this encounter Visit Diagnoses Not on filedocumented in this encounter Care Teams Ambulatory Nurse Relationship Specialty Start Date End Date Servando Torre MD [facility] [address] [place] [address] PCP - General Family Medicine 06/19/22 Mariela Denton MD [address] [place] [address] Referring Physician Gastroenterology 06/19/22 Lexis Barroso OD [address] [place] [address] Glass Technologist 09/19/22 documented as of this encounter
--- OUTSIDE RECORDS SUMMARY | 2024-07-12 19:44 | XMS_ITS | Encounter Summary ---
Author Organization [facility] Healthcare Address [address] [place] [address] Care Team Providers Care Drafting Detailer Name Role Phone Servando Torre MD Primary Care Provider [phone] Mariela Dneton MD Unavailable [phone] [phone] Lexis Barroso OD Unavailable [phone]- [phone] Reason for Referral * MRI/CAT/PET Scan (Routine) - Closed Specialty Diagnoses / Procedures Referred By Contclemencia braswell Referred To Contact Radiology Diagnoses Liver nodule Procedures CT Abdomen Pelvis W Contrast Marixa San NP [address] [place] [address] Phone: tel: fax: [address] [address] Referral ID Status Reason Start Date Expiration Date Visits Re quested Visits Authorized [id number] Closed 02/24/2023 2024 1 1 Reason for Visit * MRI/CAT/PET Scan (Routine) - Closed Specialty Diagnoses / Procedures Referred By Contac t Referred To Contact Radiology Diagnoses Liver nodule Procedures CT Abdomen Pelvis W Contrast Marixa San NP [address] [place] [address] Phone: tel: fax: [address] [address] Referral ID Status Reason Start Date Expiration Date Visits Re quested Visits Authorized [id number] Closed 02/24/2023 2024 1 1 Encounter Details Date Type Department Care Team (Latest Contact Info) Description 03/18/2023 2:07 PM CDT - 03/18/2023 11:59 PM CDT Hospital Encounter [facility] [address] [place] [address] Liver nodule Discharge Disposition: Discharge to home or self [...] on file 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 CT ABDOMEN PELVIS W CONTRAST REASON FOR STUDY: ?? Liver lesion ?? Follow up liver lesion , recently diagnosed. ?? TECHNIQUE: CT scan of the abdomen and pelvis performed with intravenous and ?? without ??oral contrast using helical scanning technique with dynamic intravenous contrast injection. Reconstructed coronal and sagittal MPR images reviewed. All images stored on PACS. Automated exposure control was used as a dose optimization technique for this examination. CONTRAST TYPE/DOSE: ?? 75mL of IOVERSOL 350 MG IODINE/ML INTRAVENOUS SYRINGE ?? injected via ?? intravenous COMPARISON: ?? CTs of the chest from February 01 and January 30, 2023 REFERENCE: Per ACR white paper recommendations, unless otherwise specified no follow-up imaging is recommended for incidental renal and adrenal lesions per consensus recommendations based on imaging criteria. Further lab evaluation could be pursued based on clinical findings. FINDINGS: LOWER CHEST: ?? Mild cardiomegaly. ??Moderate coronary artery and aortic valve calcifications. ??Interval resolution of small pleural effusions and bibasilar atelectasis. LIVER: ?? Normal size. ??2.0 x 1.5 x 1.3 cm well-circumscribed low-density left lobe liver mass is unchanged from the prior studies and most likely a cyst. ?? This could be further evaluated with ultrasound or MRI. ??No other cystic or solid masses. GALLBLADDER: ?? No stones identified. No wall thickening or inflammatory changes. BILE DUCTS: ?? No intrahepatic or extrahepatic ductal dilatation. SPLEEN: ?? Normal size. ??No focal lesions. PANCREAS: ?? No identified cystic or solid masses. No significant calcifications. No adjacent inflammation or peripancreatic fluid collections. Pancreatic duct not dilated. ?? ADRENALS: ?? Normal. KIDNEYS/URINARY TRACT: ?? 1 cm superficial cortical nodule projecting from the lower pole of the right kidney is indeterminate. ??Solid lesion is not excluded. ??Further evaluation with MRI is recommended. ??Multiple additional small well-circumscribed hypodensities in both kidneys are most likely cysts. ?? 6 mm and 1 mm nonobstructing calculi in the lower right kidney. ??3 mm radiopaque calculus at the left ureteropelvic junction. ??No appreciable hydronephrosis, however. ?Urinary bladder is unremarkable. GI: ?? No dilated bowel loops. No obvious wall thickening. ??No evidence of appendicitis. ??Scattered diverticular disease without diverticulitis. PERITONEUM: ?? No ascites or free air. RETROPERITONEUM: ?? No mass or adenopathy. REPRODUCTIVE: ?? No significant abnormality. VASCULATURE: ?? Atherosclerotic disease in the aorta, aortic branches, and iliacs. ??No abdominal aortic aneurysm. MUSCULOSKELETAL: ?? Healing bilateral lower rib fractures. ??Moderate multilevel lower thoracic and lumbar spondylosis and degenerative disc disease. ?? Sacralization of L5. ??Mild lumbar levocurvature. ??Left total hip prosthesis. OTHER: ?? Very small fat containing umbilical hernia. IMPRESSION: 2.0 x 1.5 x 1.3 cm well-circumscribed low-density left lobe liver mass is unchanged from prior studies and most likely a cyst. This could be further evaluated with ultrasound or MRI. 1 cm superficial cortical nodule projecting from lower pole of right kidney is indeterminate. Solid lesion is not excluded. Further evaluation with MRI is recommended. Multiple additional small well-circumscribed hypodensities in both kidneys are most likely cysts. 6 mm and 1 mm nonobstructing calculi in lower right kidney. 3 mm radiopaque calculus at left ureteropelvic junction. No appreciable hydronephrosis at this time. Mild diverticulosis with no evidence of diverticulitis. No dilated bowel. No free intraperitoneal fluid or free intraperitoneal air. Very small fat containing umbilical hernia. Mild cardiomegaly with moderate coronary artery and aortic valve calcifications. Healing bilateral lower rib fractures. THIS IS AN ELECTRONICALLY VERIFIED FINAL REPORT 03/20/2023 10:50 AM - Electronically signed by ??Emanuel Baldwin M.D. RB: MARISOL D: ??03/20/2023 10:50 AM T: ??03/20/2023 10:50 AM Report ID: [id number] Reading Location: ??[id number] Procedure Note Emanuel Baldwin MD - 03/20/2023 EXAM DESCRIPTION: CT ABDOMEN PELVIS W CONTRAST REASON FOR STUDY: Liver lesion Follow up liver lesion , recently diagnosed. TECHNIQUE: CT scan of the abdomen and pelvis performed with intravenousand without oral contrast using helical scanning technique with dynamic intravenous contrast injection. Reconstructed coronal and sagittal MPRimages reviewed. All images stored on PACS. Automated exposure control was usedas a dose optimization technique for this examination. CONTRAST TYPE/DOSE: 75mL of IOVERSOL 350 MG IODINE/ML INTRAVENOUSSYRINGE injected via intravenous COMPARISON: CTs of the chest from February 01 and January 30, 2023 REFERENCE: Per ACR white paper recommendations, unless otherwise specifiedno follow-up imaging is recommended for incidental renal and adrenal lesionsper consensus recommendations based on imaging criteria. Further labevaluation could be pursued based on clinical findings. FINDINGS: LOWER CHEST: Mild cardiomegaly. Moderate coronary artery and aorticvalve calcifications. Interval resolution of small pleural effusions andbibasilar atelectasis. LIVER: Normal size. 2.0 x 1.5 x 1.3 cm well-circumscribed low-densityleft lobe liver mass is unchanged from the prior studies and most likely acyst. This could be further evaluated with ultrasound or MRI. No other cysticor solid masses. GALLBLADDER: No stones identified. No wall thickening or inflammatory changes. BILE DUCTS: No intrahepatic or extrahepatic ductal dilatation. SPLEEN: Normal size. No focal lesions. PANCREAS: No identified cystic or solid masses. No significant calcifications. No adjacent inflammation or peripancreatic fluidcollections. Pancreatic duct not dilated. ADRENALS: Normal. KIDNEYS/URINARY TRACT: 1 cm superficial cortical nodule projecting fromthe lower pole of the right kidney is indeterminate. Solid lesion is not excluded. Further evaluation with MRI is recommended. Multipleadditional small well-circumscribed hypodensities in both kidneys are most likelycysts. 6 mm and 1 mm nonobstructing calculi in the lower right kidney. 3 mm radiopaque calculus at the left ureteropelvic junction. No appreciable hydronephrosis, however. Urinary bladder is unremarkable. GI: No dilated bowel loops. No obvious wall thickening. No evidence of appendicitis. Scattered diverticular disease without diverticulitis. PERITONEUM: No ascites or free air. RETROPERITONEUM: No mass or adenopathy. REPRODUCTIVE: No significant abnormality. VASCULATURE: Atherosclerotic disease in the aorta, aortic branches, and iliacs. No abdominal aortic aneurysm. MUSCULOSKELETAL: Healing bilateral lower rib fractures. Moderatemultilevel lower thoracic and lumbar spondylosis and degenerative disc disease. Sacralization of L5. Mild lumbar levocurvature. Left total hipprosthesis. OTHER: Very small fat containing umbilical hernia. IMPRESSION: 2.0 x 1.5 x 1.3 cm well-circumscribed low-density left lobe liver mass is unchanged from prior studies and most likely a cyst. This could be further evaluated with ultrasound or MRI. 1 cm superficial cortical nodule projecting from lower pole of rightkidney is indeterminate. Solid lesion is not excluded. Further evaluation withMRI is recommended. Multiple additional small well-circumscribed hypodensities in bothkidneys are most likely cysts. 6 mm and 1 mm nonobstructing calculi in lower right kidney. 3 mmradiopaque calculus at left ureteropelvic junction. No appreciable hydronephrosis atthis time. Mild diverticulosis with no evidence of diverticulitis. No dilated bowel. No free intraperitoneal fluid or free intraperitonealair. Very small fat containing umbilical hernia. Mild cardiomegaly with moderate coronary artery and aortic valve calcifications. Healing bilateral lower rib fractures. THIS IS AN ELECTRONICALLY VERIFIED FINAL REPORT 03/20/2023 10:50 AM - Electronically signed by Emanuel Baldwin M.D. RB: MARISOL Report ID: [id number] Reading Location: [place] [address] Marixa San NP IMG CT PROCEDURES Final Result documented in this encounter Visit Diagnoses Diagnosis Liver nodule Other specified disorders of liver documented in this encounter Administered Medications Inactive Administered Medications - up to 3 most recent administrations Medication Order MAR Action Action Date Dose Rate Site ioversoL (OPTIRAY 350) syringe 75 mL 75 mL, intravenous, Once in imaging, contrast, Starting on Tu03/18/23 at 1442, For 1 dose Contrast Given 03/18/2023 2:44 PM CDT 75 mL documented in this encounter Care Teams Drafting Detailer Relationship Specialty Start Date End Date Sevrando Torre MD [address] [facility] [address] [place] [address] PCP - General Family Medicine 06/19/22 Mariela Denton MD [address] [place] [address] Referring Physician Gastroenterology 06/19/22 Lexis Barroso OD [address] [place] [address] Slag Mixer 09/19/22 documented as of this encounter
--- OUTSIDE RECORDS SUMMARY | 2024-07-12 19:44 | XMS_ITS | Encounter Summary ---
Author Organization [facility] Address [address] [place] [address] Phone Care Team Providers Care Professor Of Historical Theology Name Role Phone Servando Torre MD Primary Care Provider [phone] Mariela Denton MD Unavailable [phone] Lexis Barroso OD Unavailable [phone] Reason for Visit * Reason Onset Date Comments Updated Entyvio Order - Provider Change 04/29/20 Encounter Details Date Type Department Care Team (Late st Contact Info) Description 04/29/2023 Documentation [facility] [address] 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 1 each 5 04/29/2023 documented in this encounter Progress Notes * Janice Baez LPN - 04/29/2023 11:09 AM CDT Pt was previously established in Dr. Mariela Denton's practice for her IBD care, however, Dr. Denton has left the [place]. Pt is now scheduled to establish care with Dr. Josué Cook who will be taking over management of pt's care from here. Pt is currently on Entyvio therapy, her infusion team contacted our office after finding out about Dr. Denton's departure and requested an updated Entyvio order once pt was scheduled to establish care with one of the other IBD providers. Now that pt has been scheduled, [facility] Entyvio order has been updated to reflect provider change. Order faxed to pt's infusion team at as requested. -------Fax Transmission Report------- To: Recipient at [phone] Subject: Joseph Allen - Updated Infusion Order [Secure] Result: The transmission was successful. Explanation: All Pages Ok Pages Sent: 3 Connect Time: 0 minutes, 45 seconds Transmit Time: 04/29/2023 12:58 Transfer Rate: [id number] Status Code: 0000 Retry Count: 0 Job Id: [id number] Unique Id: [id number] Fax Line: 1 Fax Supervising Producer: [id number] documented in this encounter Plan of Treatment Not on file documented as of this encounter Visit Diagnoses Diagnosis Chronic ulcerative colitis, unspecified complication (HCC)- Primary documented in this encounter Discontinued Medications Medication Sig Discontinue Reason Start Date End Da te vedolizumab (ENTYVIO) 300 mg recon soln Infuse 5 mL (300 mg total) into a venous catheter every 8 (eight) weeks Reorder 04/29/2023 documented as of this encounter Orders Procedures Count Last Ordered Date First Orde red Date ONCBCN OUTPATIENT FACILITY ORDERS 1 023 documented in this encounter Care Teams Professor Of Historical Theology Relationship Specialty Start Date End Date Servando Torre MD [address] [address] PCP - General Family Medicine 06/19/22 Mariela Denton MD [address] [place] [address] Referring Physician Gastroenterology 06/19/22 Lexis Barroso OD [address] [place] [address] Power Plant Supervisor 09/19/22 documented as of this encounter
--- OUTSIDE RECORDS SUMMARY | 2024-07-12 19:44 | XMS_ITS | Encounter Summary ---
Author Organization [facility] Address [address] [facility] [address] [place] [address] Care Team Providers Care Broadcast Designer Name Role Phone Servando Torre MD Primary Care Provider [phone] Mariela Denton MD Unavailable [phone] Lexis Barroso OD Unavailable [phone]- [phone] Encounter Details Date Type Department Care Team (Late st Contact Info) Description 03/21/2023 Telephone [facility] Primary Care at [address] [address] Regina Loo, KRISTINA Social History Tobacco Use Types Packs/Day Years [...] on file Legal Sex Female 9:30 AM BRICKMASON Gender Identity Female 04/05/2022 6:17 PM CDT Sexual Orientation Straight 04/05/2022 6: 17 PM CDT documented as of this encounter Miscellaneous Notes * Telephone Encounter - Regina Loo MA - 03/21/2023 5:12 PM CDT Spoke to pt daughter Aby(on HIPAA), informed her of results, she voiced understanding * Telephone Encounter - Regina Loo MA - 03/21/2023 5:12 PM CDT ----- Message from Marixa San NP sent at 03/21/2023 9:32 AM CDT ----- The liver mass is unchanged from previous studies and most likely a cyst. We may eventually need anMRI but for now it appears stable. There is a nodule of the right kidney that is indeterminate and we need to evaluate with MRI, I will place an order. There is mild heart enlargement noted on the CT, continue with the cardiology referral. documented in this encounter Plan of Treatment Not on file documented as of this encounter Visit Diagnoses Not on filedocumented in this encounter Care Teams Broadcast Designer Relationship Specialty Start Date End Date Servando Torre MD [address] [facility] [address] [place] [address] PCP - General Family Medicine 06/19/22 Mariela Denton MD [address] [place] [address] Referring Physician Gastroenterology 06/19/22 Lexis Barroso OD [address] [place] [id number] Line Tender 09/19/22 documented as of this encounter
--- OUTSIDE RECORDS SUMMARY | 2024-07-12 19:44 | XMS_ITS | Encounter Summary ---
Author Organization [facility] Address [address] [place] [address] Phone Care Team Providers Care Movie Critic Name Role Phone Servando Torre MD Primary Care Provider [phone] Mariela Denton MD Unavailable [phone] Lexis Barroso OD Unavailable [phone] Reason for Visit * Consultation (Routine) - Closed Specialty Diagnoses / Procedures Referred By Angel braswell Referred To Contact Neurology Diagnoses Seizure (HCC) Adria Burleson MD [address] [facility] [address] [place] [address] Phone: tel: fax: Grace Nicolas MD [id number] [place] [address] Phone: tel: fax:[phone] Referral ID Status Reason Start Date Expiration Date V isits Requested Visits Authorized [id number] Closed Specialty Services Required 03/03/2023 04/01/2024 1 1 Encounter Details Date Type Department Care Team (Late st Contact Info) Description 04/09/2023 2:00 PM CDT Office Visit [facility] [address] [place] [address] [place] [id number] Grace Nicolas MD [address] [facility] [address] [place] [address] Seizure (HCC) Social History Tobacco Use Types [...] on file 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 Gender Identity Female 04/05/2022 6:17 PM CDT Sexual Orientation Straight 04/05/2022 6: 17 PM CDT documented as of this encounter Last Filed Vital Signs Vital Sign Reading Time Taken Comments Blood Pressure 160/81 04/09/2023 2:05 PM CDT Pulse 72 04/09/2023 2:05 PM CDT Temperature - - Respiratory Rate - - Oxygen Saturation - - Inhaled Oxygen Concentration - - Weight 70.8 kg (156 lb) 04/09/2023 2:05 PM CDT Height - - Body Mass Index 28.53 03/27/2023 2:29 PM CDT documented in this encounter Patient Instructions * Patient Instructions* Grace Nicolas MD - 04/09/2023 2:00 PM CDT [facility] - VISIT SUMMARY & PATIENT INSTRUCTIONS For Ms. Radha Allen (: 1945) [facility], Department of Neurology Clinic (Nurse Eileen Hernandez) Who came with you to clinic today: Your daughter Aby and granddaughter Gerald Providers today were: Dr. Grace Nicolas (attending physician) FEEDBACK/DIAGNOSTIC ISSUES REGARDING BRAIN HEALTH Thank you for coming to the [facility] today and for allowing us to participate in your medical care. Based on information and testing that we reviewed today, including the results of your in-office testing (including physical examination), we think that very mild dementia due to an xq-da-csb-unclearcause (that is, uncertain cause) is the most likely cause of the changes in memory and thinking that you and your family have noticed. Other possible causes of the memory changes could be vascular dis ease, seizure disorder, medication effects, stressors, and grievance . Memory and thinking test scores today: [...] additional lab tests are needed. Imaging Studies: MRI of the brain with contrast (dye) Other testing: no additional testing is indicated [...] cholesterol, high blood glucose) MEDICATIONS DISCUSSED TODAY No changes to your medications were recommended today. Consider changing keppra given the increased irritability and drowsiness. ADDITIONAL RECOMMENDATIONS/RESOURCES Nutrition: We recommend that you [...] do a relaxing activity fora few minutes. Safety: No safety concerns were discussed today. Legal: We suggested that you begin to plan for your future (Living Will, Power of Wireless Communications Engineer for Health Care). You may wish to consult an health care attorney regarding these matters. Level of Care Recommendation: You can continue to live independently with support from your family. FOLLOW-UP You should return to see either Ms. Chelsie Francisco NP, Ms. Pamela Langston NP, or CHAMP Ashton in [address] Nicolas in about a year. . You can [phone] if you have questions about scheduling. If we ordered blood tests today, please stop by the [facility] patient testing area on the third floorto have your blood drawn. This is across from the [employer], in the same direction as the [employer] parking garage. You should continue to see your primary care doctor at regular intervals. RESOURCES FOR ADDITIONAL INFORMATION AND SUPPORT We will refer you to our Alzheimer Association Director Smb Sales. The social work manager will call you in the next 7-10 days. Alzheimer's Association of [place] Chapter: ; (toll free); http://www.alz.org [facility] [phone] http://[facility]care[facility] Agency on Aging (serving [facility]) http://[facility].[place].[facility]/government/hslaaa.html [facility] Agency on Aging (serving [place] and [facility] http://www.[facility].org [facility]- provides counseling and help with the aging and ailments of our loved ones. They may be able to provide counseling in your home as well as in their office and services may be covered by Medicare. [address], [place] [address] or [email or web address]. Website: http://Academic Earth/services/xmyayq-ixrd-msxdwcal/ [employer], Cognitive Stimulation Through Activity at the [employer]. [address] [facility] [address] [place] [address] http://www.Rackspace/project/msbj-mf-ibexbo/ Lewy Body Dementia Association: (toll free); http://www.LBDA.org Association for Frontotemporal Dementias: (toll free); http://www.ftd-picks.org Geriatric Air Conditioning Engineer: [employer], Ms. Varsha Mcgarry, https://www.decisionpointconsulting.org/ Pathways for aging http://SideTourforZipit Wireless.IMAGINATE - [employer]/ Yessy Anthony with Next Step Elder Assist, Certified Casey Saw Operator, [address], [address] [address]. , fax: [phone]. [email or web address] documented in this encounter Progress Notes * Grace Nicolas MD - 04/09/2023 2:00 PM CDT [facility] NEW PATIENT VISIT Grace Nicolas MD, MSc [facility] Department of Neurology Patient Name: RADHA ALLEN Medical Record Number (MRN): [id number] Date of (): 1945 Encounter Date: 04/09/2023 Referring MD: Dr. Adria Kaba* Primary Care Practitioner: Servando Ballard MD CHIEF COMPLAINT Ms. Allen is referred by Dr. Adria Kaba* for the assessment of memory loss. REVIEW OF REFERRAL RECORDS Available referral records were reviewed in anticipation of today's assessment (review completed 04/09/2023), and pertinent results summarized below. Summary of referral records: Brain MRI (01/2023) : prior bleed in left corpus callosum splenium, few microbleed in deep WM, cerebellum, scattered SVDs, mild atrophy HISTORY OF PRESENT ILLNESS Ms. Allen is a 78 y.o. left handed lady with HL, HTN, DM, UC, and focal seizures who [facility] today accompanied by her daughter and granddaughter who serves as the Collateral Source (CS). Ms. Allen lives with her granddaughter , in their private home. The CS sees her daily. She is in generally good health. The CS first noticed memory and thinking problems 2 years ago. The first problems noted were askingodd questions, which happens when she gets more tired, and sleepy. She is upset that she makes mistakes. She is more withdrawn, and being more afraid going out. She seems to confuse her daughter withher mom. Problems began gradually and have progressed gradually, but since the seizures, she has been having more difficulties. Difficulties are now present inconsistently. Currently, she does not misplace items more frequently than before. She has difficulty managing medications. She knows her medications, but may take more meds, so granddaughter has been helping her. She does not require assistance managing appointments. Once written down, can do them well.. She is reliable in recalling details of recent events. She will repeat questions, stories and statements atnight times. She does not have difficulty coming up with words. She does not have difficulty carrying on a conversation. Concerning orientation, she usually knows the day of the week, month and year. She has difficulty with time relationships. She is able to navigate in familiar areas only. Judgment and problem solving abilities are still good, but not as good as before. She has difficulty with paying bills, calculating a tip, simple calculations, balancing a checkbook, and understanding more complex issue and no difficulty with making a menu selection. Daughter took over the financessince November. She is appropriate in social situations. She does not drive. She does not have access tofirearms in the home. She can figure out emergency situation. She has given up several community activities. She is more withdrawn. Her function at home is mildly impaired. She is able to manage simple chores (e.g., washing the dishes, making her bed, and light cleaning). She is able to cook. She is able to operate household appliances including the pulp drier, laundry machines, and handle maker. She has difficulty using technology, including the television remote, cell phone, and computer. She was never good. She has given up hobbies. She has not been able to sewing and reading She has been watching TV. She is new to walker, and utilizing that while doing things are more difficult. She needs prompting to bathe or groom. She has not fallen recently. Her balance is more wabbly. She requires the assistance of a caregiver, and is primarily cared for by granddaughter . Her caregiver is willing to continue to serve as caregiver but does not have sufficient support. Depression was assessed by administering the Geriatric Depression Scale; this was reviewed in psychometric package. The CS also reports that mood is good. She can fixate on things. On direct questioning, Ms. Allen states that memory is pretty good. It is not as good as before. Shestates that mood is good. I sleep well. My grand daughter says I flop a lot. I don't feel too tired. Behavioral changes were assessed by administering the NPI-Q (Neuropsychiatric Inventory Questionnaire) to the CS: Delusions: present Hallucinations: absent Agitation or Aggresion: present, increased after keppra Depressed Mood: present Anxiety: present Elation or Euphoria: absent Apathy or Indifference: absent Disinhibition: absent Irritability or lability: present Motor: absent Nighttime behaviors/Sleep disturbance: present, sleep is irregular. Taking more sleep. ? Sleep apnea, not sure. Quiet these days. Appetite or eating issues/weight loss or gain: absent, losing weight. 7lb over month. 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 Gout Acute pulmonary edema (CMS/HCC) (HCC) Closed fracture of multiple ribs of left side Multiple fractures of ribs associated with chest compression and cardiopulmonary resuscitation Elevated troponin Liver nodule Neck pain Osteopenia Pulmonary nodules Seizure (HCC) GERD (gastroesophageal reflux disease) HTN (hypertension) Prediabetes Ulcerative colitis (HCC) Acute respiratory distress Localization-related symptomatic epilepsy and epileptic syndromes with complex partial seizures, not intractable, without status epilepticus (CMS/HCC) (HCC) PAST MEDICAL HISTORY Past Medical History: [...] but is unsure MEDICATIONS Current Outpatient Medications: acetaminophen-codeine (TYLENOL with CODEINE [...] next labs due by the end of 05/2023., Disp: 90 tablet, Rfl: 0 calcium citrate-vitamin [...] with breakfast, Disp: 90 tablet, Rfl: 1 Lactobacillus acidophilus (PROBIOTIC ORAL), Take by mouth, Disp: , Rfl: levETIRAcetam (KEPPRA) 500 mg tablet, Take 1 tablet (500 mg total) by mouth 2 (two) times a day, Disp: 60 tablet, Rfl: 11 mesalamine (APRISO) 0.375 gram 24 [...] blood glucose, Disp: 50 each, Rfl: 11 Pain Reliever ES,acetaminophn, 500 mg tablet, Take [...] capsule, Take by mouth, Disp: , Rfl: vedolizumab (ENTYVIO) 300 mg recon soln, Infuse 5 mL (300 mg total) into a venous catheter every 8 (eight) weeks, Disp: , Rfl: FAMILY & SOCIAL HISTORY Family History Problem Relation Age of Onset Atrial fibrillation Mother Breast cancer Mother Stroke Mother Cancer Father Alzheimer's disease Father 70 Social History Tobacco Use Smoking status: Never Passive exposure: Never Smokeless tobacco: Never Substance and Sexual Activity Drug use: Never Sexual activity: None Alcohol Use: Not At Risk (11/29/2022) AUDIT-C Frequency of Alcohol Consumption: Never Average Number of Drinks: Patient does not drink Frequency of Binge Drinking: Never REVIEW OF SYSTEMS See Review of Systems form filled out by the patient and/or collateral source for today's visit. Reviewed and scanned into Electronic Health Record. Pertinent positives and negatives reported in HPI.All other systems negative. PHYSICAL EXAMINATION BP 160/81 (BP Location: Right arm, Patient Position: Sitting) Pulse 72 Wt 70.8 kg (156 lb) BMI 28.53 kg/m?? General Assessment The patient appeared of average build and of stated age. She was dressed appropriately, and behavednormally throughout the interview, with euthymic affect and good conversational skills. No sensory intrusions / misperceptions were noted (i.e., no delusions and/or hallucinations). General physical examination revealed regular rate and rhythm without murmur. No carotid bruits were auscultated. There were no orthostatic complaints. Cranial Nerves Visual minor were full with no extinction [...] midline. Motor Motor exam revealed normal bulk, tone and strength throughout. Fine finger movements were symmetric. There was no pronator drift. There were no involuntary movements, including tremor. Rapid-alternating movements were completed normally (no bradykinesia). Reflexes Reflexes were symmetric at the biceps, triceps, brachioradialis and knees. Sensation Sensation was intact to pin-prick and vibratory sense. Coordination Uycomy-epdf-nfytbg and lvyf-nlql-bxht testing were normal. Gait Gait was normal, including tandem gait. Romberg was negative. Neurobehavioral Examination Affect: Appropriate Attention and Concentration: normal . She recited months of the year backwards. Language: She was fluent throughout the interview and examination, complying with four-steps of a four-step command. Confrontational naming was intact to low-frequency words. Repetition was preserved. Orientation: She was fully oriented to time and place. Visuospatial: She was able to draw a clock, and indicate the correct time. She was able to copy intersecting pentagons. Calculations: She correctly calculated the number of quarters in $6.75. She correctly performed serial subtractions (3's). Memory: She adequately recalled the details of a recent event. She recalled 5/5 items on the Alen Brown memory phrase and 1/3 items on delayed recall testing on the MMSE. She demonstrated good insight concerning the purpose for today's visit. RECENT EVENT PER CS: They came out to dinner for her birthday. Her friend Shaina brought her kessler, but then she 2 days later. RECENT EVENT PER P: My daughter brought chocolate cake. My family, most of them were there. They got me a new TV. I think I got something else. They got me kessler too. Similarities: Turnip/cauliflower:vegetable Desk/bookcase:furniture Differences: Lie/mistake: lie is not true, mistake is honest River/canal: river is natural, canal is for transportation COGNITIVE TESTING REPORT Please see neurobehavioral exam results (below) and summary sheet in the chart for test scores. On formal neurobehavioral testing, which took from 1413 h to 1443 h, scores were in the very mildlyimpaired range on tests of semantic memory (Shelby Naming, verbal fluency). Scores were in the normal range on tests of episodic memory (word list memory task, word list recall, logical memory). Scores were in the mildly impaired range on tests of speeded psychomotor performance (trailmaking A and B, digit symbol). On more global tests, MMSE was 28 and Short Blessed was 0 . These findings are consistent with mild impairment, and could be seen in, but are not specific for subcortical disease . Ms. Allen indicated a positive response to 3 of 8 answers on the Geriatric Depression Screening test. She denied feeling sad, blue or depressed for two weeks or longer during the prior year. In general, 4 or more positive responses on the Geriatric Depression Screening test are common in patients with active depression. [facility] Neurobehavioral Status Test Results 04/09/2023 7:[address] [facility] Neurobehavioral Status Exam Results Repository ICF signed? No Verbal Fluency Total Score 10 Shelby Naming (15 item) Total Score 15 MMSE [...] 24 Digit Symbol Errors 0 Clinical Dementia Rating 04/09/2023 7:[address] [facility] CDR/DIAGNOSIS NEW Repository ICF signed? No Memory 0.5 Orientation 0.5 Judgement & Problem Solving 0.5 Community Affairs 0.5 Home & Hobbies 0.5 Personal Care 1 Global Score 0.5 Sum of Boxes 3.5 Year of Onset 2021 Non-AD Dementia Primary Vascular Dementia Mood disorder (any type) Active Bereavement Active Medication induced cognitive disorder Active Seizure disorder Active ADDITIONAL SUMMARY OF RELEVANT MEDICAL RECORDS/ TESTING Lab Results Component Value Date VITB12 >2,000 (H) 05/30/2022 No results found for: TSH , V6MOIAJ , E6CJKWW , THYROIDAB Lab Results Component Value Date WBC 7.0 03/21/2023 HGB 13.6 03/21/2023 HCT 43.5 03/21/2023 MCV 96.2 03/21/2023 LABPLAT 313 03/21/2023 Lab Results Component Value Date GLUCOSE 130 03/21/2023 CALCIUM 9.7 03/21/2023 SODIUM 141 03/21/2023 POTASSIUM 3.9 03/21/2023 CO2 29 03/21/2023 CHLORIDE 102 03/21/2023 BUNSER 12 03/21/2023 CREATININE 0.79 03/21/2023 Lab Results Component Value Date ALT 62 (H) 03/21/2023 AST 46 (H) 03/21/2023 ALKPHOS 84 03/21/2023 BILITOT 0.3 03/21/2023 DIAGNOSIS AND ASSESSMENT Ms. Allen is a 78 y.o. lady with a family history of dementia, who presents with a 1 year history ofslowly progressive cognitive decline. The pattern of decline, findings on neurological examination,psychometric test results and my neurobehavioral examination confirm very mild dementia. The most likely etiologic cause is vascular dementia. She clearly has vascular lesions of brain bleed and somemicrobleeds, which are of unclear etiology. She has mild atrophy, but appears age appropriate. Her memory symptoms and confusions tend to get worse with fatigue, and sleepiness, which also can be part of sun downing, but CS also endorses worsened agitations and increased sleepiness since the initiat ion of keppra/levetiracetam, which can impact the cognition at this time. At the time of this visit, it is my opinion that she may not be reliable in making independent medical decisions, although this is currently unclear and may require additional testing. PLAN 1. Seizure (HCC) 1. Diagnostic evaluation: A. Laboratory studies are reviewed and are complete. No further testing is indicated at this time. B. A brain MRI will be ordered to look for structural change or other causes that may contribute tocognitive impairment. Her Epileptologist is planning the brain MRI as well. From cognitive standpoint, brain MRI with volumetrics would be sufficient. 2. Treatment: - Her symptoms are fairly mild at this time, would hold off on starting medications. 3. Activity: I recommended that Ms. Allen remain physically active and socially engaged. Ms. Allen and the CS were referred to the Alzheimer???s Association for additional educational resources. 4. Safety: No safety concerns were identified today. Ms. Allen does not drive. 5. Follow-up: I will see her again in one year. She will follow-up with one of our clinic Nurse Practitioner, Ms. Chelsie Francisco or Ms. Pamela Langston, or our Physician Field Operations Supervisor Ms. Marianne Mccullough in 6 months. --- I spent 25 minutes interpreting the results of standardized neuropsychological testing, integratingthese results into clinical decision making and treatment plan, providing interactive feedback to the patient and family member(s)/caregiver(s) and report, and documenting this in the patient's chart. In addition to the interpretation time listed above (and exclusive of that time), I spent 70 minutes on the day of the encounter on activities related to the visit including preparing to see the patient by reviewing labs, tests and medical records, time spent rdre-ba-ilfr with the patient and family during the visit, performing counselling and education, placing orders and documenting the visit in the patient's EHR. Grace Nicolas MD, MSc Supervisor [employer] Department of Neurology, [facility] Detailed plan and patient/caregiver education and referrals are in AVS copied below: Patient Instructions [facility] - VISIT SUMMARY & PATIENT INSTRUCTIONS For Ms. Radha Allen (: 1945) [facility], Department of Neurology Clinic (Nurse Eileen Hernandez) Who came with you to clinic today: Your daughter Aby and granddaughter Gerald Providers today were: Dr. Grace Nicolas (attending physician) FEEDBACK/DIAGNOSTIC ISSUES REGARDING BRAIN HEALTH Thank you for coming to the [facility] today and for allowing us to participate in your medical care. Based on information and testing that we reviewed today, including the results of your in-office testing (including physical examination), we think that very mild dementia due to an su-fx-upf-unclearcause (that is, uncertain cause) is the most likely cause of the changes in memory and thinking that you and your family have noticed. Other possible causes of the memory changes could be vascular dis ease, seizure disorder, medication effects, stressors, and grievance . Memory and thinking test scores today: [...] additional lab tests are needed. Imaging Studies: MRI of the brain with contrast (dye) Other testing: no additional testing is indicated [...] cholesterol, high blood glucose) MEDICATIONS DISCUSSED TODAY No changes to your medications were recommended today. Consider changing keppra given the increased irritability and drowsiness. ADDITIONAL RECOMMENDATIONS/RESOURCES Nutrition: We recommend that you [...] do a relaxing activity fora few minutes. Safety: No safety concerns were discussed today. Legal: We suggested that you begin to plan for your future (Living Will, Power of Wireless Communications Engineer for Health Care). You may wish to consult an health care attorney regarding these matters. Level of Care Recommendation: You can continue to live independently with support from your family. FOLLOW-UP You should return to see either Ms. Chelsie Francisco NP, Ms. Pamela Langston NP, or CHAMP Ashton in [address] Nicolas in about a year. . You can [phone] if you have questions about scheduling. If we ordered blood tests today, please stop by the [facility] testing area on the third floorto have your blood drawn. This is across from the [employer], in the same direction as the [facility] parking garage. You should continue to see your primary care doctor at regular intervals. RESOURCES FOR ADDITIONAL INFORMATION AND SUPPORT We will refer you to our Alzheimer Association Director Smb Sales. The social work manager will call you in the next 7-10 days. Alzheimer's Association of [place] Chapter: ; (toll free); http://www.alz.org [facility] [phone] http://[facility]care[facility] Agency on Aging (serving [facility]) http://[facility] [email or web address] [facility] (serving [place], [facility] and [facility] http://www.[email or web address]- provides counseling and help with the aging and ailments of our loved ones. They may be able to provide counseling in your home as well as in their office and services may be covered by Medicare. [address], [place] [address] or [email or web address]. Website: http://Academic Earth/services/ntoned-ktdt-crjzqdoz/ [employer], Cognitive Stimulation Through Activity at the [place] [employer]. [address] [facility] [address] [place] [address] http://www.QuarterSpot.IMAGINATE - Technovating Reality/project/evhw-zi-haegnb/ Lewy Body Dementia Association: (toll free); http://www.LBDA.org Association for Frontotemporal Dementias: (toll free); http://www.ftd-picks.org Geriatric Air Conditioning Engineer: [employer], Ms. Varsha Mcgarry, https://www.decisionpointconsulting.org/ Pathways for aging http://Hara/ Yessy Anthony with [facility] [employer] Elder Assist, Certified Casey Saw Operator, [address], [address], [place] [address]. , fax: [phone]. [email or web address] documented in this encounter Plan of Treatment Not on file documented as of this encounter Visit Diagnoses Diagnosis Seizure (HCC) Other convulsions documented in this encounter Discontinued Medications Medication Sig Discontinue Reason Start Date End Da te gabapentin (NEURONTIN) 100 mg capsule Take 1 capsule (100 mg total) by mouth 3 (three) times a day Therapy completed 04/09/2023 oxyCODONE (ROXICODONE) 5 mg immediate release tablet Therapy completed 04/09/2023 tiZANidine (ZANAFLEX) 2 mg tablet Take 1 tablet (2 mg total) by mouth every 6 (six) hours as needed for muscle spasms Therapy completed 02/07/2023 04/09/2023 documented as of this encounter Orders Outpatient Referral Count Last Ordered Date Fir st Ordered Date AMB REFERRAL TO NEUROLOGY 1 04/09/2023 documented in this encounter Care Teams Movie Critic Relationship Specialty Start Date End Date Servando Torre MD [address] [facility] [address] [place] [address] PCP - General Family Medicine 06/19/22 Mariela Denton MD [address] [place] [address] Referring Physician Gastroenterology 06/19/22 Lexis Barroso OD [address] [place] [address] Certified Juvenile Probation Officer 09/19/22 documented as of this encounter
--- OUTSIDE RECORDS SUMMARY | 2024-07-12 19:44 | XMS_ITS | Encounter Summary ---
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 Gender Identity Female 04/05/2022 6:17 PM CDT Sexual Orientation Straight 04/05/2022 6: 17 PM CDT documented as of this encounter Ordered Prescriptions Prescription Sig Dispense Quantity Refills Last Filled Start Date End Date metFORMIN (GLUCOPHAGE) 850 mg tabletIndications: Type 2 diabetes mellitus with hyperglycemia, without long-term current use of insulin (HCC) Take 1 tablet (850 mg total) by mouth 2 (two) times a day with meals 60 tablet 2 03/21/2023 05/16/2023 documented in this encounter Miscellaneous Notes * Telephone Encounter - Regina Loo MA - 03/21/2023 4:11 PM CDT Refill request from [facility] for Metformin 850mg tab Last refill 12/20/22 Last ov 02/20/23 documented in this encounter Plan of Treatment Not on file documented as of this encounter Visit Diagnoses Diagnosis Type 2 diabetes mellitus with hyperglycemia, without long-term current use of insulin (HCC) documented in this encounter Discontinued Medications Medication Sig Discontinue Reason Start Date End Da te metFORMIN (GLUCOPHAGE) 850 mg tabletIndications:Type 2 diabetes mellitus with hyperglycemia, without long-term current use of insulin (HCC) Take 1 tablet (850 mg total) by mouth 2 (two) times a day with meals Reorder 12/20/2022 03/21/2023 documented as of this encounter Care Teams Product Management Analyst Relationship Specialty Start Date End Date Servando Torre MD [address] [facility] 130 [place] [address] PCP - General Family Medicine 06/19/22 Mariela Denton MD [address] [place] [address] Referring Physician Gastroenterology 06/19/22 Lexis Barroso OD [address] [place] [address] Associate Pastor 09/19/22 documented as of this encounter
--- OUTSIDE RECORDS SUMMARY | 2024-07-12 19:45 | XMS_ITS | Encounter Summary ---
Author Organization [facility] Address [address] [facility] [address] [place] [address] Care Team Providers Care Victims Advocate Clerk/Specialist Name Role Phone Servando Torre MD Primary Care Provider [phone]- [phone] Mariela Denton MD Unavailable [phone] [phone] Lexis Barroso OD Unavailable +1- [phone] Encounter Details Date Type Department Care Team (Late st Contact Info) Description 03/12/2023 Orders Only [facility] Medical [facility] [place] at [place] [address] [place] [address] Servando Torre MD [address] [place] [address] [address] [place] [address] Type 2 diabetes mellitus with hyperglycemia, without long-term current use of insulin (CMS/HCC) (HCC) (Primary Dx) Social History Tobacco [...] on file 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 Gender Identity Female 04/05/2022 6:17 PM CDT Sexual Orientation Straight 04/05/2022 6: 17 PM CDT documented as of this encounter Plan of Treatment Not on file documented as of this encounter Visit Diagnoses Diagnosis Type 2 diabetes mellitus with hyperglycemia, without long-term current use of insulin (HCC)- Primary documented in this encounter Care Teams Victims Advocate Clerk/Specialist Relationship Specialty Start Date End Date Servando Torre MD [address] [address] PCP - General Family Medicine 06/19/22 Mariela Denton MD [facility] [address] [place] [address] Referring Physician Gastroenterology 06/19/22 Lexis Barroso OD [address] [place] [address] Supervisor Counseling And Guidance 09/19/22 documented as of this encounter
--- OUTSIDE RECORDS SUMMARY | 2024-07-12 19:45 | XMS_ITS | Encounter Summary ---
Author Organization [facility] Healthcare Address [address] [place] [address] Care Team Providers Care Can Vacuum Tester Name Role Phone Servando Torre MD Primary Care Provider Mariela Denton MD Unavailable [phone] Lexis Barroso OD Unavailable +1- [phone] Encounter Details Date Type Department Care Team (Latest Contact Info) Description 02/17/2023 5:44 PM CDT - 02/17/2023 11:59 PM CDT Hospital Encounter [facility] [address] [place] [address] Discharge Disposition: Discharge to home or self care Social History Tobacco Use Types Packs/Day Years Used Date Smoking Tobacco: Never Smokeless Tobacco: Never AUDIT-C Answer Date [...] points, staff should administer the PHQ-9) 0 02/07/2023 Comments No Sex and Gender Information Value Date Recorded Sex Assigned at Not on file 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. ??There will be no report generated by a [facility] Radiologist. Narrative RAD_PACS_BJ - 02/17/2023 5:44 PM CDT EXAMINATION: ??Images For Reference Purposes Only us Karl Turner MD PhD IMG XR PROCEDURES Final Re sult RAD_PACS_BJH documented in this encounter Visit Diagnoses Not on filedocumented in this encounter Care Teams Can Vacuum Tester Relationship Specialty Start Date End Date Servando Torre MD [facility] [address] [place] [address] PCP - General Family Medicine 06/19/22 Mariela Denton MD [facility] [address] [place] [address] Referring Physician Gastroenterology 06/19/22 Lexis Barroso OD [address] [place] [address] Volunteer Services Supervisor 09/19/22 documented as of this encounter
--- OUTSIDE RECORDS SUMMARY | 2024-07-12 19:45 | XMS_ITS | Encounter Summary ---
Author Organization [facility] Healthcare Address [address] [place] [address] Care Team Providers Care Documentation Analyst Name Role Phone Servando Torre MD Primary Care Provider [phone] Mariela Denton MD Unavailable [phone] [phone] Lexis Barroso OD Unavailable [phone]- [phone] Reason for Visit * MRI/CAT/PET Scan (Routine) - Closed Specialty Diagnoses / Procedures Referred By Contac t Referred To Contact Procedures Neuro CT Outside Reference Karl Turner MD PhD [address] [facility] [address] [place] [address] Phone: tel: fax: Referral ID Status Reason Start Date Expiration Date Visits Re quested Visits Authorized [id number] Closed 02/17/2023 03/18/2024 1 1 Encounter Details Date Type Department Care Team (Latest Contact Info) Description 02/17/2023 5:44 PM CDT - 02/17/2023 11:59 PM CDT Hospital Encounter [facility]) [address] [place] [address] Discharge Disposition: Discharge to home or self [...] on file 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 ??There will be no report generated by a [facility] Radiologist. Narrative RAD_PACS_BJ - 02/17/2023 5:44 PM CDT EXAMINATION: ??Images For Reference Purposes Only us Karl Turner MD PhD IMG CT PROCEDURES Final Re sult RAD_PACS_BJH documented in this encounter Visit Diagnoses Not on filedocumented in this encounter Care Teams Documentation Analyst Relationship Specialty Start Date End Date Servando Torre MD [address] [facility] 130 [place] [address] PCP - General Family Medicine 06/19/22 Mariela Denton MD [address] [place] [address] Referring Physician Gastroenterology 06/19/22 Lexis Barroso OD [address] [address] Community Service Manager 09/19/22 documented as of this encounter
--- OUTSIDE RECORDS SUMMARY | 2024-07-12 19:45 | XMS_ITS | Encounter Summary ---
Author Organization [facility] Address [address] [place] [address] Phone Care Team Providers Care Equal Opportunity Representative Name Role Phone Servando Torre MD Primary Care Provider [phone] Mariela Denton MD Unavailable [phone] [phone] Lexis Barroso OD Unavailable +1- [phone] Encounter Details Date Type Department Care Team (Late st Contact Info) Description 12/19/2022 Orders Only [facility] [address] [place] [address] Ramon Rowan MD [address] [place] [address] Social History Tobacco Use Types Packs/Day Years [...] points, staff should administer the PHQ-9) 0 12/19/2022 Comments No Sex and Gender Information Value Date Recorded Sex Assigned at Not on file 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 Gender Identity Female 04/05/2022 6:17 PM CDT Sexual Orientation Straight 04/05/2022 6: 17 PM CDT documented as of this encounter Plan of Treatment Not on file documented as of this encounter Procedures Procedure Name Priority Date/Time Associated Diagnosis Comments SURGICAL PATHOLOGY Routine 12/19/2022 3: 25 PM CDT documented in this encounter Results * Surgical pathology (12/19/2022 3:25 PM CDT) Skin, shave biopsy 12/19/2022 3:25 PM CDT 12/20/2022 8:56 AM CDT Narrative 12/24/2022 3:23 PM CDT EPIC results best viewed via link to PDF [facility] [address] [place], [place] [address] ??[address], [place] [address] ? [email or web address] Note to Patients: ??This report may contain a detailed description of human tissue sent by a health care provider to the laboratory for pathologic evaluation. ??The content of this report is essential for diagnosis and may provide important critical findings. ??This information may be unfamiliar to patients to review without a medical professional present. ?? It is advised that the patient review this report in the presence of a health care provider who can answer questions and explain the details. FINAL REPORT Patient Information: PATIENT NAME: ??RADHA ALLEN ? SEX: ??F ? : ??1945 (Age: 77) ? Specimen Information: COLLECTED: ??12/19/2022 ? RECEIVED: ??12/20/2022 ? REPORTED: ??12/24/2022 ? Submitting Physician Information: Ramon Rowan M.D. [facility], [address] [place] [address] ??[id number], ? DERMATOPATHOLOGY REPORT RESULTS ?? DIAGNOSIS: SKIN, RIGHT SUPERIOR LATERAL MALAR CHEEK, SHAVE BIOPSY: ? VERRUCOUS KERATOSIS exr/lac By this signature, I attest that the above diagnosis is based upon my personal examination of the slides(and/or other material indicated in the diagnosis). Josi Keenan M.D. ?? Report Electronically Reviewed and Signed Out By ??Josi Keenan M.D. 12/24/2022 15:23:17 CLINICAL INFORMATION 7 MM PINK VERRUCOUS PAPULE; VERRUCA VULGARIS VS IRRITATED SEBORRHEIC KERATOSIS VS SCC. SPECIMEN DATA MICROSCOPIC DESCRIPTION: There is epidermal hyperplasia and hyperkeratosis. (L82.1) ?? GROSS DESCRIPTION: Received in a formalin-containing bottle is a superficial fragment of pale garcia and verrucous skin measuring 0.7 by 0.4 by 0.7 cm. The surgical margin is inked blue. The specimen is sectioned into 2 pieces and submitted entirely in a single cassette. Due to shrinkage, measurements may be different than those at time of procedure. djd/dxv ICD-9 A; ZSD.232 ? Clerical Data A; 570[address] The Characteristics of some immunohistochemical and immunofluorescence stains as well as in-situ hybridization tests were determined by the [facility] in ongoing quality assurance practice manager and in compliance with regulations drawn from the Clinical Laboratory Improvement Act of 1988 (CLIA '88). These tests may rely on the use of analyte specific reagents that are subject to specific labeling requirements by the US FDA, and may only be performed in a facility that is certified by the [facility] as a high-complexity laboratory under CLIA '88. ??These tests are used for clinical purposes and are not investigational. ??For lab developed tests, the validation has been reviewed; the performance is considered acceptable for patient testing. Ramon Rowan MD LAB PATHOLOGY ORDERAB LES Final Result documented in this encounter Visit Diagnoses Not on filedocumented in this encounter Care Teams Equal Opportunity Representative Relationship Specialty Start Date End Date Servando Torre MD [address] [facility] [address] [place] [address] PCP - General Family Medicine 06/19/22 Mariela Denton MD [address] [place] [address] Referring Physician Gastroenterology 06/19/22 Lexis Barroso OD [address] [place] [address] Psychiatric Aide Instructor 09/19/22 documented as of this encounter
--- OUTSIDE RECORDS SUMMARY | 2024-07-12 19:45 | XMS_ITS | Encounter Summary ---
Author Organization [facility] Address [address] [facility] [address] [place] [address] Care Team Providers Care Assistant Professor Sculpture Name Role Phone Servando Torre MD Primary Care Provider [phone]- [phone] Mariela Denton MD Unavailable [phone] [phone] Lexis Barroso OD Unavailable +1- [phone] Reason for Visit * Reason Onset Date Comments Breathing Problem 02/04/2023 Encounter Details Date Type Department Care Team (Late st Contact Info) Description 02/04/2023 Nurse Triage [facility] Medical 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 O2 compressor is not keeping charge. Asking if she should contact Medicare or supplement. Advised to contact each for assistance in obtaining new O2 for ride home and call discharging hospital for assistance with possible need for new order for O2 compressor and equipment for ride home. At 3L of O2 sats running at 90-95% and at 2-2.5 L of O2 sats run inthe low 90s. Patient is currently at [facility] [employer] [facility] charging O2 for ride to [place]. Provided patient's daughter with the phone number for [employer] in [place] for possible O2 availability. Phone is [phone]. * Telephone Encounter - Teresa Navarro RN - 02/04/2023 3:57 PM CDT Lisa Allen daughter, Aby, calling due recent low oxygen event while on vacation in [place]. Caller states they are in [place] for family reunion. On 01/30 pt had a seizure like event due to low oxygen. Admitted to hospital 01/30 -02/02. 8 broken ribs from CPR. Pt has been experiencing a lot of confusion due to medications and altitude. Released from hospital with small O2 machine - can give up to 3L.O2 saturations have been 90 - 94% on 3L. Having issues with O2 machine not holding the charge. Madeseveral attempts to contact O2 companies. Worried to drive home. States her O2 drops to 85% withoutoxygen. Encouraged further evaluation at local UC or ED should symptoms become a concern. Caller agreeable. Regarding O2 machine issues: Caller states when pt was still at hospital, they were given 3 options from case management as far as home oxygen: [employer] - did not have appropriate equipment for travel, [employer] - equipment is in [place]. They went with 3rd option which was [employer] - have contacted the company several times to troubleshoot the issues with no viable solution. Recommended calling insurance company to see if their case management team could be of any assistance. Unsure if they will make it back home for f/u appt 02/07. Caller states they will cancel if needed, but is hopeful they will find a way back home. Routing to Servando Torre MD's office as FYI and to reach out to daughter, Aby, with any further resources regarding their portable oxygen issue. [phone] Reason for Disposition Nursing judgment Protocols used: Information Only Call - No Omuhyh-EZGIY-BW * Telephone Encounter - Teresa Navarro RN - 02/04/2023 3:52 PM CDT Regarding: Patient having difficulty breathing ----- Message from Rhonda Olivas sent at 02/04/2023 3:45 PM CDT ----- Symptom Based Call Caller's Callback #: [phone] Chief Complaint(s): Patient having difficulty breathing Duration: 01/30 What type of symptom(s) is the patient experiencing? Red Flag. Is the patient concerned they are experiencing a medical emergency requiring an ambulance? No Additional Comments: Patient's Daughter called in, HIPAA verified, as patient was admitted to the hospital due to seizure like from low oxygen. Patient had 8 broken ribs from cpr. Patient's and her daughter are in [place] and are trying to make the trip back home, but patient's oxygen levels continue to dip. Patient sent home from hospital with portable oxygen, but still having difficulty maintaining levels. Does message need to be routed? Yes-Action Needed documented in this encounter Plan of Treatment Not on file documented as of this encounter Visit Diagnoses Not on filedocumented in this encounter Care Teams Assistant Professor Sculpture Relationship Specialty Start Date End Date Servando Torre MD [facility] [address] PCP - General Family Medicine 06/19/22 Mariela Denton MD [address] [place] [address] Referring Physician Gastroenterology 06/19/22 Lexis Barroso OD [address] [place] [address] Feather Boner 09/19/22 documented as of this encounter
--- OUTSIDE RECORDS SUMMARY | 2024-07-12 19:45 | XMS_ITS | Encounter Summary ---
Author Organization [facility] Healthcare Address [address] [place] [address] Care Team Providers Care Furniture Finisher Helper Name Role Phone Servando Torre MD Primary Care Provider Mariela Denton MD Unavailable [phone] Lexis Barroso OD Unavailable +1- [phone] Reason for Visit * Reason Comments Blurred Vision Fatigue Encounter Details Date Type Department Care Team (Late st Contact Info) Description 02/12/2023 7:50 PM CDT - 02/12/2023 9:51 PM CDT Emergency [facility] Emergency Department [address] [place] [address] Juve Trejo MD [address] [address] Weakness (Primary Dx); Confusion Discharge Disposition: Discharge to home or self [...] on file 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 Gender Identity Female 04/05/2022 6:17 PM CDT Sexual Orientation Straight 04/05/2022 6: 17 PM CDT documented as of this encounter Last Filed Vital Signs Vital Sign Reading Time Taken Comments Blood Pressure 157/61 02/12/2023 9:49 PM CDT Pulse 63 02/12/2023 9:49 PM CDT Temperature 36.6 ??C (97.8 ??F) 02/12/2023 6:17 PM CD T Respiratory Rate 18 02/12/2023 9:49 PM CDT Oxygen Saturation 100% 02/12/2023 9:49 PM CDT Inhaled Oxygen Concentration - - Weight 72.6 kg (160 lb) 02/12/2023 6:17 PM CDT Height 157.5 cm (5' 2 ) 02/12/2023 6:17 PM CDT Body Mass Index 29.26 02/12/2023 6:17 PM CDT documented in this encounter Discharge Instructions * Discharge Instructions* Juve Trejo MD - 02/12/2023 9:23 PM CDT Continue home medications, follow with your primary doctor * Attachments The following attachments cannot be sent through Care Everywhere. * Confusion (Montserratian) documented in this encounter Medications at Time [...] by mouth daily 120 capsule 08/15/2022 4 metFORMIN (GLUCOPHAGE) 850 mg tabletIndications [...] Discharge Disposition Disposition Code Departure Means Destination Comment s Discharge to home or self care documented in this encounter ED Notes * Juve Trejo MD - 02/12/2023 9:19 PM CDT HPI Chief Complaint Patient presents with Blurred Vision Fatigue 77-year-old with a history of hypertension, hyperlipidemia, GERD, diabetes was brought in by granddaughter with the complaints of confusion, not feeling well for past few days. Patient states that she was in [place] about 9600 ft while she was sitting on her steps she fell and was taken to the local ER. Family reports that they did CPR for brief time. Ever since then she is been confused. She denies any any unusual headaches, granddaughter also reports that she has visual disturbances which isongoing for quite some time. She denies any nausea, vomiting. Patient was able to answer all the questions and she remembers all the events. Patient History: Patient Active Problem List Diagnosis Date Noted Acute respiratory distress 02/07/2023 Acute pulmonary edema (CMS/HCC) (HCC) 01/31/2023 Multiple fractures of ribs associated with chest compression and cardiopulmonary resuscitation 01/31/2023 Closed fracture of multiple ribs of left side 01/30/2023 Elevated troponin 01/30/2023 Liver nodule 01/30/2023 Neck pain 01/30/2023 Osteopenia 01/30/2023 Pulmonary nodules 01/30/2023 Seizure (HCC) 01/30/2023 GERD (gastroesophageal reflux disease) 01/30/2023 HTN (hypertension) 01/30/2023 Prediabetes 01/30/2023 Ulcerative colitis (HCC) 01/30/2023 Diabetes mellitus (HCC) 09/19/2022 Anemia 09/19/2022 GERD (gastroesophageal reflux disease) 09/19/2022 Hyperlipidemia 09/19/2022 Hypertension 09/19/2022 Ulcerative colitis (HCC) 09/19/2022 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 09/19/2022 Gout 09/19/2022 Initial Medicare annual wellness visit 06/23/2022 Chronic ulcerative colitis, unspecified complication (HCC) 06/18/2022 Ear ringing 03/03/2013 Asymmetrical sensorineural hearing loss 03/03/2013 Stress fracture 07/07/2012 Arthralgia of hip 02/06/2011 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 Prediabetes 06/19/2022 Ulcerative colitis (HCC) 2019 Past Surgical History: Procedure Laterality Date COLONOSCOPY FEMUR FRACTURE SURGERY Left 2011 PARTIAL HIP ARTHROPLASTY Left 2015 RETINAL DETACHMENT SURGERY Right Family History Problem Relation Age of Onset Atrial fibrillation Mother Breast cancer Mother Stroke Mother Cancer Father Social History Tobacco Use Smoking status: Never Smokeless tobacco: Never Vaping Use Vaping Use: Never used Substance and Sexual Activity Alcohol use: None Drug use: Never Sexual activity: None Social History Social History Narrative Not on file Review of Systems Review of Systems Constitutional: Negative. HENT: Negative. Eyes: Positive for visual disturbance. Respiratory: Negative. Cardiovascular: Negative. Gastrointestinal: Negative. Endocrine: Negative. Genitourinary: Negative. Allergic/Immunologic: Negative. Neurological: Negative. Hematological: Negative. Psychiatric/Behavioral: Positive for confusion. Physical Exam ED Triage Vitals [02/12/23 1817] Temp Pulse Resp BP SpO2 36.6 ??C (97.8 ??F) 61 18 135/70 96 % Temp src Heart Rate Source Patient Position BP Location FiO2 (%) Temporal -- -- -- -- Height Height Method Weight Weight Method 1.575 m (5' 2 ) Stated 72.6 kg (160 lb) Stated Physical Exam Vitals and nursing note reviewed. Constitutional: Appearance: Normal appearance. HENT: Head: Normocephalic and atraumatic. Nose: Nose normal. Eyes: Pupils: Pupils are equal, round, and reactive to light. Cardiovascular: Rate and Rhythm: Normal rate and regular rhythm. Pulmonary: Effort: Pulmonary effort is normal. Breath sounds: Normal breath sounds. Abdominal: Palpations: Abdomen is soft. Musculoskeletal: General: Normal range of motion. Cervical back: Normal range of motion. Skin: General: Skin is warm. Neurological: General: No focal deficit present. Mental Status: She is alert and oriented to person, place, and time. Psychiatric: Mood and Affect: Mood normal. Results for orders placed or performed during the hospital encounter of 02/12/23 Urinalysis reflex to microscopic and culture Urine Specimen: Urine Result Value Ref Range Color, ur Yellow Yellow Clarity, ur Clear Clear Specific gravity, ur 1.012 1.003 - 1.030 pH, urine 5.0 Protein, ur ql Negative Negative Glucose, ur ql Negative Negative Ketones, ur Negative Negative Bilirubin, ur Negative Negative Blood, ur Negative Negative Urobilinogen, ur <2.0 <2.0 mg/dL Nitrite, ur Negative Negative Leukocyte esterase, ur 3+ (A) Negative UA reflex comment Reflex to microscopic UA will be performed. CBC with auto differential Result Value Ref Range WBC 8.6 3.8 - 9.9 K/cumm Hgb 12.5 11.9 - 15.5 g/dL Hct 39.0 35.6 - 45.5 % Plt 386 150 - 400 K/cumm MPV 8.8 (L) 9.1 - 12.3 fL RBC 4.12 3.90 - 5.20 M/cumm MCV 94.7 81.3 - 96.4 fL MCH 30.3 27.1 - 33.3 pg MCHC 32.1 (L) 32.3 - 35.7 g/dL RDW CV 14.5 11.1 - 14.9 % RDW SD 49.5 (H) 35.7 - 48.1 fL NRBC abs 0.00 0.00 - 0.01 K/cumm Comprehensive metabolic panel Result Value Ref Range Sodium 137 135 - 145 mmol/L Potassium, pl 4.0 3.3 - 4.9 mmol/L Chloride 97 97 - 110 mmol/L CO2 28 22 - 32 mmol/L Anion gap 12 2 - 15 mmol/L BUN 18 6 - 25 mg/dL Creatinine 1.02 0.60 - 1.10 mg/dL Glucose 165 70 - 199 mg/dL Calcium 10.0 8.5 - 10.3 mg/dL Bilirubin, total 0.2 0.1 - 1.2 mg/dL Protein, pl 6.5 6.5 - 8.5 g/dL Albumin 3.7 3.5 - 5.0 g/dL Alk phos 126 40 - 130 Units/L ALT 16 7 - 45 Units/L AST 19 10 - 45 Units/L Differential, auto Result Value Ref Range Neutrophil abs 5.8 1.7 - 6.5 K/cumm Imm gran abs 0.0 0.0 - 0.1 K/cumm Lymphocyte abs 2.0 0.8 - 3.3 K/cumm Monocyte abs 0.6 0.2 - 0.8 K/cumm Eosinophil abs 0.2 0.0 - 0.5 K/cumm Basophil abs 0.0 0.0 - 0.1 K/cumm Neutrophil pct 67.7 % Imm gran pct 0.5 % Lymphocyte pct 23.0 % Monocyte pct 6.5 % Eosinophil pct 1.9 % Basophil pct 0.4 % Urinalysis, microscopic only Result Value Ref Range WBC, ur 11-20 (A) 0 - 5 /HPF RBC, ur 0-2 0 - 2 /HPF Epithelial cells, squamous, ur 1-5 0 - 5 /HPF Bacteria, ur 1+ (A) Mucous, ur Present (A) Hyaline casts, ur 6-10 0 - 10 /LPF Culture Reflex Comment Reflex to urine culture will be performed. eGFR Result Value Ref Range eGFR 56 mL/min/1.73 m2 FINDINGS: BRAIN: Ventricles, cisterns and sulci are symmetric and mildly prominent, commensurate with age. There are moderate patchy areas of hypodensity in the periventricular, subcortical and deep white matter as evidence for chronic microvascular angiopathy. Sommer-white matter differentiation otherwise appears grossly preserved. No intracranial hemorrhage is identified. EXTRA-AXIAL SPACES: No fluid collections. No mass effect. CALVARIUM: No fracture. SINUSES/MASTOIDS: Visualized portions are clear. ORBITS: Status post right-sided lens extraction. OTHER: No other significant abnormality. IMPRESSION: No acute intracranial finding MDM Medical Decision Making Amount and/or Complexity of Data Reviewed Labs: ordered. Radiology: ordered. ED Course as of 02/12/232122 Time: 02/12 2122 Comment: Notified patient about the lab work, and CT. Advised him to continue her home medication, follow with the primary doctor By: Juve Trejo MD Final diagnoses: Weakness Confusion Juve Trejo MD 02/12/232122 * Pamela Sanchez RN - 02/12/2023 6:15 PM CDT Pt to ED for c/o increased fatigue, confusion and blurry vision x 3 days. Per family, on 01/30 pt hadwhat is believed to be a seizure due to high altitude levels in [place]. Pt had CPR and now has broken ribs. Pt family reports pt already had some confusion but it seems worse. Per family, PCP wanted her checked out due to increased confusion. Pt A&Ox4. documented in this encounter Plan of Treatment Not on file documented as of this encounter Procedures Procedure Name Priority Date/Time Associated Diagnosis Comments CT HEAD WO CONTRAST ED 02/12/2023 9 :00 PM CDT URINALYSIS AND REFLEX TO MICROSCOPIC AND CULTURE STAT 02/12/2023 7:10 PM CDT URINALYSIS, MICROSCOPIC ONLY STAT 02/12/2023 7:10 PM CDT URINE CULTURE STAT 02/12/2023 7:10 PM CDT EGFR STAT 02/12/2023 7:00 PM CDT DIFFERENTIAL AUTO STAT 02/12/2023 7:0 0 PM CDT CBC WITH AUTO DIFFERENTIAL STAT 02/12/2023 7:00 PM CDT COMPREHENSIVE METABOLIC PANEL STAT 02/12/2023 7:00 PM CDT documented in this encounter Results * CT Head WO Contrast (02/12/2023 9:00 PM CDT) Anatomical Region Laterality Modality Head and Neck N/A Computed Tomogra phy 02/12/2023 9:03 PM CDT Narrative 02/12/2023 9:05 PM CDT EXAM DESCRIPTION: CT HEAD WO CONTRAST REASON FOR STUDY: Mental status change, unknown cause ?? c/o increased fatigue, confusion and blurry vision x 3 days. Per family, on 01/30 pt had what is believed to be a seizure due to high altitude levels in [place]. ? TECHNIQUE: Axial images acquired through the brain without intravenous contrast. ??Images stored on PACS. ?? Automated exposure control was used as a dose optimization technique for this examination. COMPARISON: None. FINDINGS: BRAIN: ?? Ventricles, cisterns and sulci are symmetric and mildly prominent, commensurate with age. ?There are moderate patchy areas of hypodensity in the periventricular, subcortical and deep white matter as evidence for chronic microvascular angiopathy. ??Sommer-white matter differentiation otherwise appears grossly preserved. ?No intracranial hemorrhage is identified. EXTRA-AXIAL SPACES: ?? No fluid collections. No mass effect. CALVARIUM: ?? No fracture. SINUSES/MASTOIDS: ?? Visualized portions are clear. ORBITS: ?? Status post right-sided lens extraction. OTHER: ?? No other significant abnormality. IMPRESSION: No acute intracranial findings. THIS IS AN ELECTRONICALLY VERIFIED FINAL REPORT 02/12/2023 9:05 PM - Electronically signed by ??Teofilo Sunshine M.D., D.O. Teofilo Sunshine M.D., Arielle.O. MW: JEOVANNY D: ??02/12/2023 9:05 PM T: ??02/12/2023 9:05 PM Report ID: [id number] Reading Location: ??[id number] Procedure Note Teofilo Sunshine MD - 02/12/2023 EXAM DESCRIPTION: CT HEAD WO CONTRAST REASON FOR STUDY: Mental status change, unknown cause c/o increased fatigue, confusion and blurry vision x 3 days. Per family,on 01/30 pt had what is believed to be a seizure due to high altitude levels in [place]. TECHNIQUE: Axial images acquired through the brain without intravenous contrast. Images stored on PACS. Automated exposure control was used asa dose optimization technique for this examination. COMPARISON: None. FINDINGS: BRAIN: Ventricles, cisterns and sulci are symmetric and mildlyprominent, commensurate with age. There are moderate patchy areas of hypodensityin the periventricular, subcortical and deep white matter as evidence forchronic microvascular angiopathy. Sommer-white matter differentiation otherwiseappears grossly preserved. No intracranial hemorrhage is identified. EXTRA-AXIAL SPACES: No fluid collections. No mass effect. CALVARIUM: No fracture. SINUSES/MASTOIDS: Visualized portions are clear. ORBITS: Status post right-sided lens extraction. OTHER: No other significant abnormality. IMPRESSION: No acute intracranial findings. THIS IS AN ELECTRONICALLY VERIFIED FINAL REPORT 02/12/2023 9:05 PM - Electronically signed by Teofilo Sunshine M.D., Arielle.O. Teofilo Sunshine M.D., D.O. MW: JEOVANNY Report ID: [id number] Reading Location: [id number] Juve Trejo MD IMG CT PROCEDURES Final Result * Urine culture Urine (02/12/2023 7:10 PM CDT) Report Final Report: Less than 100,000 colonies/mL (clinically insignificant growth based on current clinical standards) AILEEN RODRIGUEZ ([place]) Comment:Testing performed by : [facility], [address] [facility] [place]., [address] Organism (CLINICALLY INSIGNIFICANT GROWTH AILEEN RODRIGUEZ ([place]) Urine 02/12/2023 7:10 PM CDT 02/12/2023 10:23 PM CDT Narrative AILEEN RODRIGUEZ ([place]) - 02/14/2023 7:37 AM CDT Urine culture reflexed based upon urinalysis results. Testing performed by [facility] Microbiology Laboratory ([phone]) us Juve Trejo MD LAB MICROBIOLOGY - GENERAL ORD ERABLES Final Result Performing Organization Address [facility]/ZIP Co de Phone Number AILEEN RODRIGUEZ ([place]) [address] [facility] [place] [address] * (ABNORMAL) Urinalysis, microscopic only (02/12/2023 7:10 PM CDT) WBC, ur 11-20(A) 0 - 5 /HPF [facility] ([place]) RBC, ur 0-2 0 - 2 /HPF [facility] ([place]) Epithelial cells, squamous, ur 1-5 0 - 5 /HPF [facility] ([place]) Bacteria, ur 1+(A) [facility] ([place]) Mucous, ur Present(A) [facility] ([place]) Hyaline casts, ur 6-10 0 - 10 /LPF [facility] ([place]) Culture Reflex Comment Reflex to urine culture will be performed. [facility]ODRIG[facility] ([place]) Urine 02/12/2023 7:10 PM CDT 02/12/2023 7:12 PM CDT us Juve Trejo MD LAB URINE ORDERABLES Final Res ult Performing Organization Address City/[facility]/ZIP Co de Phone Number AILEEN RODRIGUEZ ([place]) 1 [facility] [place] [address] * (ABNORMAL) Urinalysis reflex to microscopic and culture Urine (02/12/2023 7:10 PM CDT) Color, ur Yellow Yellow [facility] ([place]) Clarity, ur Clear Clear [facility] ([place]) Specific gravity, ur 1.012 1.003 - 1.030 [facility] ([place]) pH, urine 5.0 [facility] ([place]) Protein, ur ql Negative Negative [facility] ([place]) Glucose, ur ql Negative Negative [facility] ([place]) Ketones, ur Negative Negative [facility] ([place]) Bilirubin, ur Negative Negative [facility] ([place]) Blood, ur Negative Negative [facility]) Urobilinogen, ur <2.0 <2.0 mg/dL [facility] ([place]) Nitrite, ur Negative Negative [facility] ([place]) Leukocyte esterase, ur 3+(A) Negative [facility] ([place]) UA reflex comment Reflex to microscopic UA will be performed. [facility] ([place]) Urine 02/12/2023 7:10 PM CDT 02/12/2023 7:12 PM CDT Narrative [facility] ([place]) - 02/12/2023 7:17 PM CDT ?? Urine pH is affected by diet, medications, systemic acid-base disturbances, and renal tubular function. ??pH may affect urinary stone formation. ??For example, urine pH below 6.0 may help reduce the tendency for calcium phosphate stones and pH greater than 6.0 may reduce the tendency for uric acid stone formation. Source: [facility] My[employer]. Last revised 08-07-2017 us Juve Trejo MD LAB MICROBIOLOGY - GENERAL ORD ERABLES Final Result [facility]LE[facility] ([place]) 1 [facility] [place] [address] * eGFR (02/12/2023 7:00 PM CDT) eGFR 56 mL/min/1. 73 m2 [facility] ([place]) Comment: Interpretive Data Reference Interval Normal ?>/= [...] interpretive data was last reviewed 2021. Blood 02/12/2023 7:0 0 PM CDT 02/12/2023 7:05 PM CDT us Juve Trejo MD LAB BLOOD ORDERABLES Final Res ult [facility] ([place]) 1 [facility] [place] [address] * Differential, auto (02/12/2023 7:00 PM CDT) Neutrophil abs 5.8 1.7 - 6.5 K/cumm [facility] ([place]) Imm gran abs 0.0 0.0 - 0.1 K/cumm [facility] ([place]) Lymphocyte abs 2.0 0.8 - 3.3 K/cumm [facility] ([place]) Monocyte abs 0.6 0.2 - 0.8 K/cumm [facility] ([place]) Eosinophil abs 0.2 0.0 - 0.5 K/cumm [facility] ([place]) Basophil abs 0.0 0.0 - 0.1 K/cumm [facility] ([place]) Neutrophil pct 67.7 % [facility] ([place]) Comment: Interpretive Data Percent cell count reference ranges are not reported, since discordance with absolute values may lead to misinterpretation of CBC data. Current Interpretive Data was last revised on 2017. Imm gran pct 0.5 % [facility] ([place]) Comment: Interpretive Data Percent cell count reference ranges are not reported, since discordance with absolute values may lead to misinterpretation of CBC data. Current Interpretive Data was last revised on 2017. Lymphocyte pct 23.0 % [facility] ([place]) Comment: Interpretive Data Percent cell count reference ranges are not reported, since discordance with absolute values may lead to misinterpretation of CBC data. Current Interpretive Data was last revised on 2017. Monocyte pct 6.5 % [facility] ([place]) Comment: Interpretive Data Percent cell count reference ranges are not reported, since discordance with absolute values may lead to misinterpretation of CBC data. Current Interpretive Data was last revised on 2017. Eosinophil pct 1.9 % [facility] ([place]) Comment: Interpretive Data Percent cell count reference ranges are not reported, since discordance with absolute values may lead to misinterpretation of CBC data. Current Interpretive Data was last revised on 2017. Basophil pct 0.4 % [facility] ([place]) Comment: Interpretive Data Percent cell count reference ranges are not reported, since discordance with absolute values may lead to misinterpretation of CBC data. Current Interpretive Data was last revised on 2017. Blood 02/12/2023 7:00 PM CDT 02/12/2023 7:05 PM CDT us Juve Trejo MD LAB BLOOD ORDERABLES Final Res ult [facility] ([place]) 1 [facility] Department of Laboratories [place], [place] [id number] * Comprehensive metabolic panel (02/12/2023 7:00 PM CDT) Sodium 137 135 - 145 mmol/L [facility] ([place]) Potassium, pl 4.0 3.3 - 4.9 mmol/L [facility] ([place]) Chloride 97 97 - 110 mmol/L [facility] ([place]) CO2 28 22 - 32 mmol/L [facility] ([place]) Anion gap 12 2 - 15 mmol/L [facility] ([place]) BUN 18 6 - 25 mg/dL [facility] ([place]) Creatinine 1.02 0.60 - 1.10 mg/dL [facility] ([place]) Glucose 165 70 - 199 mg/dL [facility] ([place]) Comment: Interpretive Data Fasting glucose >/= 126 [...] interpretive data was last revised 2022. Calcium 10.0 8.5 - 10.3 mg/dL [facility] ([place]) Bilirubin, total 0.2 0.1 - 1.2 mg/dL [facility] ([place]) Protein, pl 6.5 6.5 - 8.5 g/dL [facility] ([place]) Albumin 3.7 3.5 - 5.0 g/dL [facility] ([place]) Alk phos 126 40 - 130 Units/L [facility] ([place]) ALT 16 7 - 45 Units/L [facility] ([place]) AST 19 10 - 45 Units/L [facility] ([place]) Blood 02/12/2023 7:00 PM CDT 02/12/2023 7:05 PM CDT us uJve Trejo MD LAB BLOOD ORDERABLES Final Res ult [facility] ([place]) 1 [facility] Department [place] [address] * (ABNORMAL) CBC with auto differential (02/12/2023 7:00 PM CDT) WBC 8.6 3.8 - 9.9 K/cumm [facility] ([place]) Hgb 12.5 11.9 - 15.5 g/dL [facility] ([place]) Hct 39.0 35.6 - 45.5 % [facility] ([place]) Plt 386 150 - 400 K/cumm [facility] ([place]) MPV 8.8(L) 9.1 - 12.3 fL [facility] ([place]) RBC 4.12 3.90 - 5.20 M/cumm [facility] ([place]) MCV 94.7 81.3 - 96.4 fL [facility] ([place]) MCH 30.3 27.1 - 33.3 pg [facility] ([place]) MCHC 32.1(L) 32.3 - 35.7 g/dL [facility] ([place]) RDW CV 14.5 11.1 - 14.9 % [facility] ([place]) RDW SD 49.5(H) 35.7 - 48.1 fL [facility] ([place]) NRBC abs 0.00 0.00 - 0.01 K/cumm [facility] ([place]) Blood 02/12/2023 7:00 PM CDT 02/12/2023 7:05 PM CDT us Juve Trejo MD LAB BLOOD ORDERABLES Final Res ult [facility] ([place]) 1 [facility] [place] [address] documented in this encounter Visit Diagnoses Diagnosis Weakness- Primary Other malaise and fatigue Confusion Unspecified psychosis documented in this encounter Care Teams Furniture Finisher Helper Relationship Specialty Start Date End Date Servando Torre MD [address] [place] [address] PCP - General Family Medicine 06/19/22 Mariela Denton MD [address] [place] [address] Referring Physician Gastroenterology 06/19/22 Lexis Barroso OD [address] [place] [address] Benzene Washer Operator 09/19/22 documented as of this encounter
--- OUTSIDE RECORDS SUMMARY | 2024-07-12 19:45 | XMS_ITS | Encounter Summary ---
Author Organization [facility] Medical Group Address [address] [facility] [address] [place] [address] Care Team Providers Care Home Paraprofessional Name Role Phone Servando Torre MD Primary Care Provider [phone] Mariela Denton MD Unavailable [phone] Lexis Barroso OD Unavailable [phone]- [phone] Reason for Visit * Reason Onset Date Comments Medical Records Request 02/19/2023 Encounter Details Date Type Department Care Team (Late st Contact Info) Description 02/19/2023 Telephone [facility] Medical [facility] Primary Care at [address] [address] Servando Torre MD [address] [place] [address] [address] [place] [address] Medical Records Request Social History [...] staff should administer the PHQ-9) 0 02/20/2023 Comments No Sex and Gender Information Value Date Recorded Sex Assigned at Not on file Legal Sex Female 9:30 AM HUC OB Gender Identity Female 04/05/2022 6:17 PM CDT Sexual Orientation Straight 04/05/2022 6: 17 PM CDT documented as of this encounter Miscellaneous Notes * Telephone Encounter - Lexis Jhaveri MA - 02/19/2023 3:47 PM CDT See mychart message. * Telephone Encounter - Mayra Winters - 02/19/2023 1:22 PM CDT Medical Question/Miscellaneous Caller???s Concern: Pt's daughter Aby (HIPAA verified) calling to speak to Lexis regarding images that have been requested from [facility] in [facility]. Inquiry if they havebeen received yet. Attempted to warm transfer to backline, no answer. Advised caller the office will return her call. Caller???s Call back #: [phone] Does message need to be routed? Yes-Action Needed documented in this encounter Plan of Treatment Not on file documented as of this encounter Visit Diagnoses Not on filedocumented in this encounter Care Teams Home Paraprofessional Relationship Specialty Start Date End Date Servando Torre MD [address] [facility] [address] [place] [address] PCP - General Family Medicine 06/19/22 Mariela Denton MD [address] [place] [address] Referring Physician Gastroenterology 06/19/22 Lexis Barroso OD [address] [place] [address] Emergency Detail Driver 09/19/22 documented as of this encounter
--- OUTSIDE RECORDS SUMMARY | 2024-07-12 19:45 | XMS_ITS | Encounter Summary ---
Author Organization [facility] Medical Group Address [address] [facility] [address] [place] [address] Care Team Providers Care Family Medicine Resident Name Role Phone Servando Torre MD Primary Care Provider +1- [phone] Mariela Denton MD Unavailable +1 -[phone] Lexis Barroso OD Unavailable +1- [phone] Encounter Details Date Type Department Care Team (Late st Contact Info) Description 02/14/2023 Telephone [facility] Primary Care at [place] [address] [place] [address] Servando Torre MD [address] [place] [address] [address] [place] [address] Social History Tobacco Use Types [...] on file 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 Talked with neuro they have received all info needed and will be calling pt to schedule. * Telephone Encounter - Lexis Jhaveri MA - 02/14/2023 5:55 PM CDT P: [phone] option 2,1,2. Pt's daughter notified. * Telephone Encounter - David Everett - 02/14/2023 3:12 PM CDT Pt daughter called and is needing phone number for neurology documented in this encounter Plan of Treatment Not on file documented as of this encounter Visit Diagnoses Not on filedocumented in this encounter Care Teams Family Medicine Resident Relationship Specialty Start Date End Date Servando Torre MD [facility] [address] PCP - General Family Medicine 06/19/22 Mariela Denton MD [address] [place] [address] Referring Physician Gastroenterology 06/19/22 Lexis Barroso OD [address] [place] [address] Industrial Ecology Technician 09/19/22 documented as of this encounter
--- OUTSIDE RECORDS SUMMARY | 2024-07-12 19:45 | XMS_ITS | Encounter Summary ---
Author Organization [facility] Medical Group Address [address] [facility] [address] [place] [address] Care Team Providers Care Core Placer Name Role Phone Servando oTrre MD Primary Care Provider +1- [phone] Mariela Denton MD Unavailable +1 -[phone] Lexis Barroso OD Unavailable +1- [phone] Reason for Visit * Reason Onset Date Comments Additional Services Or Orders 03/13/2023 Encounter Details Date Type Department Care Team (Late st Contact Info) Description 03/13/2023 Telephone [facility] Medical [facility] Primary Care at [address] [address] Servando Torre MD [address] [place] [address] [address] [place] [address] Additional Services Or Orders Social [...] on file 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 Kathy does need the order for Speech therapy. * Telephone Encounter - Rhonda Olivas - 03/13/2023 12:38 PM CDT Additional Services or Orders Type of Service Requested:Speech Therapy Duration/Number of Visits: Initial Eval Is a verbal order acceptable? Yes Reason for Request (e.g. condition/symptom, date of COVID exposure if applicable): Cognitive/ Memory difficulties Details Regarding Additional Services (e.g. type of home health, type of equipment, type of test, etc.): Where will services be performed? (if outside of the practice, facility name, address, phone/fax offacility): home Caller's Callback #: [phone] Additional Comments: Nurse Kathy quintanilla/ [facility] also would like a verbal run down of patients medical history based on medications, please reach out. Does message need to be routed? Yes-Action Needed documented in this encounter Plan of Treatment Not on file documented as of this encounter Visit Diagnoses Diagnosis Memory impairment- Primary Memory loss documented in this encounter Care Teams Core Placer Relationship Specialty Start Date End Date Servando Torre MD [address] [facility] [address] [place] [address] PCP - General Family Medicine 06/19/22 Mariela Denton MD [address] [place] [address] Referring Physician Gastroenterology 06/19/22 Lexis Barroso OD [address] [place] [address] Paving Crew Foreman 09/19/22 documented as of this encounter
--- OUTSIDE RECORDS SUMMARY | 2024-07-12 19:45 | XMS_ITS | Encounter Summary ---
Author Organization [facility] Healthcare Address [address] [place] [address] Care Team Providers Care Biofuels Operations Manager Name Role Phone Servando Torre MD Primary Care Provider [phone] Mariela Denton MD Unavailable +1 -[phone] Lexis Barroso OD Unavailable +1- [phone] Reason for Visit * MRI/CAT/PET Scan (Routine) - Closed Specialty Diagnoses / Procedures Referred By Contac t Referred To Contact Procedures Neuro CT Outside Reference Karl Turner MD PhD [address] [facility] [address] [place] [address] Phone: tel: fax: Referral ID Status Reason Start Date Expiration Date Visits Re quested Visits Authorized [id number] Closed 02/17/2023 03/18/2024 1 1 Encounter Details Date Type Department Care Team (Latest Contact Info) Description 02/17/2023 5:44 PM CDT - 02/17/2023 11:59 PM CDT Hospital Encounter 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 ??There will be no report generated by a [facility] Radiologist. Narrative RAD_PACS_[facility] - 02/17/2023 5:44 PM CDT EXAMINATION: ??Images For Reference Purposes Only us Karl Turner MD PhD IMG CT PROCEDURES Final Re sult [facility] documented in this encounter Visit Diagnoses Not on filedocumented in this encounter Care Teams Biofuels Operations Manager Relationship Specialty Start Date End Date Servando Torre MD 2 [facility] 130 [place] [address] PCP - General Family Medicine 06/19/22 Mariela Denton MD [address] [place] [address] Referring Physician Gastroenterology 06/19/22 Lexis Barroso OD [address], [place] [address] Customer Consultant 09/19/22 documented as of this encounter
--- OUTSIDE RECORDS SUMMARY | 2024-07-12 19:45 | XMS_ITS | Encounter Summary ---
Author Organization [facility] Medical Group Address [address] [facility] [address] [place] [address] Care Team Providers Care Event Mgr Name Role Phone Servando Torer MD Primary Care Provider [phone] [phone] Mariela Denton MD Unavailable +1 -[phone] Lexis Barroso OD Unavailable +1- [phone] Reason for Referral * Consultation (Routine) - Closed Specialty Diagnoses / Procedures Referred By Angel braswell Referred To Contact Cardiology Diagnoses Syncope, unspecified syncope type Marixa San NP [address] [place] [address] 130 [place] [address] Phone: tel: fax: [facility] Cardiology at [address] [place] [address] Phone: tel: fax: Referral ID Status Reason Start Date Expiration Date V isits Requested Visits Authorized [id number] Closed Specialty Services Required 03/06/2023 04/04/2024 1 1 Question Answer Please select the performing region: [facility] [[id number]] Please select the performing department: [facility] CARD EDW [[id number]] # of visits: 1 Encounter Details Date Type Department Care Team (Late st Contact Info) Description 03/06/2023 Orders Only [facility] Primary Care at [address] [id number] Marixa San NP [address] [facility] 130 [place] [address] Syncope, unspecified syncope type (Primary Dx) Social History Tobacco Use Types [...] on file 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 Gender Identity Female 04/05/2022 6:17 PM CDT Sexual Orientation Straight 04/05/2022 6: 17 PM CDT documented as of this encounter Plan of Treatment Scheduled Referrals Name Type Priority Associated Diagnoses Orde r Schedule Ambulatory referral to Cardiology Outpatient Referral Routine Syncope, unspecified syncope type Expected: 03/20/2023 (Approximate), Expires: 03/06/2024 documented as of this encounter Visit Diagnoses Diagnosis Syncope, unspecified syncope type- Primary documented in this encounter Care Teams Event Mgr Relationship Specialty Start Date End Date Servando Torre MD [address] [facility] 130 [place] [address] PCP - General Family Medicine 06/19/22 Mariela Denton MD [address] [place] [address] Referring Physician Gastroenterology 06/19/22 Lexis Barroso OD [address] [place] [address] Duplicating Machine Operator 09/19/22 documented as of this encounter
--- OUTSIDE RECORDS SUMMARY | 2024-07-12 19:45 | XMS_ITS | Encounter Summary ---
Author Organization [facility] Healthcare Address [address] [place] [address] Care Team Providers Care Parts Expediter Name Role Phone Servando Torre MD Primary Care Provider [phone] Mariela Denton MD Unavailable +1 -[phone] Lexis Barroso OD Unavailable +1- [phone] Reason for Visit * MRI/CAT/PET Scan (Routine) - Closed Specialty Diagnoses / Procedures Referred By Contac t Referred To Contact Procedures Neuro MR Outside Reference Karl Turner MD PhD [address] [facility] [address] [place] [address] Phone: tel: fax: Referral ID Status Reason Start Date Expiration Date Visits Re quested Visits Authorized [id number] Closed 02/17/2023 03/18/2024 1 1 Encounter Details Date Type Department Care Team (Latest Contact Info) Description 02/17/2023 5:44 PM CDT - 02/17/2023 11:59 PM CDT Hospital Encounter [facility]) [address] [place] [address] Discharge Disposition: Discharge to home or [...] on file Legal 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 ??There will be no report generated by a [facility] Radiologist. Narrative RAD_PACS_[facility] - 02/17/2023 5:44 PM CDT EXAMINATION: ??Images For Reference Purposes Only us Karl Turner MD PhD IMG MRI PROCEDURES Final R esult RAD_[facility]ACS[facility] documented in this encounter Visit Diagnoses Not on filedocumented in this encounter Care Teams Parts Expediter Relationship Specialty Start Date End Date Servando Torre MD 2 [facility] 130 [place] [address] PCP - General Family Medicine 06/19/22 Mariela Denton MD [address] [place] [address] Referring Physician Gastroenterology 06/19/22 Lexis Barroso OD [address], [place] [address] Support Team Member 09/19/22 documented as of this encounter
--- OUTSIDE RECORDS SUMMARY | 2024-07-12 19:45 | XMS_ITS | Encounter Summary ---
Author Organization [facility] Medical Group Address [address] [facility] [address] [place] [address] Care Team Providers Care It Systems Administrator Name Role Phone Servando Torre MD Primary Care Provider +1- [phone] Mariela Denton MD Unavailable +1 -[phone] Lexis Barroso OD Unavailable +1- [phone] Reason for Visit * Reason Onset Date Comments CHRISTELLE Questions 02/04/2023 Encounter Details Date Type Department Care Team (Late st Contact Info) Description 02/04/2023 Telephone [facility] Medical 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 Yes Date Admitted: 01/31 Date Discharged: 02/02 Facility Admitted To: [facility] Reason for Stay? Possible seizure due to lack of oxygen If prescribed new medications, do you have any questions or concerns? no Do you have enough medication to get you to your follow-up appointment? yes Since being released do you feel better, the same, or worse? better Date of CHRISTELLE Appointment: 02/07 with Marixa San NP Do you have transportation to the appointment? yes Caller???s Callback #: [phone] Additional Comments: Caller states that patient became unresponsive and her lips were turning blue.She administered CPR and broke 8 of her ribs. Does message need to be routed? No documented in this encounter Plan of Treatment Not on file documented as of this encounter Visit Diagnoses Not on filedocumented in this encounter Care Teams It Systems Administrator Relationship Specialty Start Date End Date Servando Torre MD [address] [address] PCP - General Family Medicine 06/19/22 Mariela Denton MD [address] [place] [address] Referring Physician Gastroenterology 06/19/22 Lexis Barroso OD [address] [place] [address] Biomedical Equipment Support Specialist 09/19/22 documented as of this encounter
--- OUTSIDE RECORDS SUMMARY | 2024-07-12 19:45 | XMS_ITS | Encounter Summary ---
Author Organization [facility] Healthcare Address [address] [place] [address] Care Team Providers Care Condemnation Engineer Name Role Phone Servando Torre MD Primary Care Provider +1- [phone] Mariela Denton MD Unavailable +1 -[phone] Lexis Barroso OD Unavailable +1- [phone] Encounter Details Date Type Department Care Team (Latest Contact Info) Description 02/07/2023 10:42 AM CDT - 02/07/2023 11:59 PM CDT Hospital Encounter [address] [place] [address] Seizure (HCC); Acute pulmonary edema (CMS/HCC) (HCC) Discharge Disposition: Discharge to home or [...] file Legal Sex Female 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 Gender Identity Female 04/05/2022 6:17 PM CDT [...] Priority Date/Time Associated Diagnosis Comments EGFR Routine 02/07/2023 10:42 AM CDT Seizure (HCC) Acute pulmonary edema (CMS/HCC) (HCC) DIFFERENTIAL AUTO Routine 02/07/2023 10: 42 AM CDT Seizure (HCC) Acute pulmonary edema (CMS/HCC) (HCC) PRO B-TYPE NATRIURETIC PEPTIDE Routine 02/07/2023 10:42 AM CDT Seizure (HCC) Acute pulmonary edema (CMS/HCC) (HCC) CBC WITH AUTO DIFFERENTIAL Routine 02/07/2023 10:42 AM CDT Seizure (HCC) Acute pulmonary edema (CMS/HCC) (HCC) COMPREHENSIVE METABOLIC PANEL Routine 02/07/2023 10:42 AM CDT Seizure (HCC) Acute pulmonary edema (CMS/HCC) (HCC) documented in this encounter Results * eGFR (02/07/2023 10:42 AM CDT) [facility] eGFR 73 mL/min/1. 73 m2 [facility] Comment: Interpretive [...] interpretive data was last reviewed 2021. Blood 02/07/2023 10:4 2 AM CDT 02/07/2023 4:22 PM CDT Marixa San CALCULATING MACHINE MECHANIC LAB BLOOD ORDERABLES Final Resul t [facility] [address] Department [place] [address] * Differential, auto (02/07/2023 10:42 AM CDT) Neutrophil abs 5.4 1.7 - 6.5 K/cumm [facility] Imm gran abs 0.1 0.0 - 0.1 K/cumm [facility] Lymphocyte abs 1.8 0.8 - 3.3 K/cumm [facility] Monocyte abs 0.7 0.2 - 0.8 K/cumm [facility] Eosinophil abs 0.2 0.0 - 0.5 K/cumm [facility] Basophil abs 0.0 0.0 - 0.1 K/cumm [facility] Neutrophil pct 66.4 % [facility] Comment: Interpretive Data Percent cell count reference ranges are not reported, since discordance with absolute values may lead to misinterpretation of CBC data. Current Interpretive Data was last revised on 2017. Imm gran pct 1.3 % [facility] Comment: Interpretive Data Percent cell count reference ranges are not reported, since discordance with absolute values may lead to misinterpretation of CBC data. Current Interpretive Data was last revised on 2017. Lymphocyte pct 21.4 % [facility] Comment: Interpretive Data Percent cell count reference ranges are not reported, since discordance with absolute values may lead to misinterpretation of CBC data. Current Interpretive Data was last revised on 2017. Monocyte pct 8.3 % [facility] Comment: Interpretive Data Percent cell count reference ranges are not reported, since discordance with absolute values may lead to misinterpretation of CBC data. Current Interpretive Data was last revised on 2017. Eosinophil pct 2.2 % [facility] Comment: Interpretive Data Percent cell count [...] Data was last revised on 2017. Blood 02/07/2023 10:4 2 AM CDT 02/07/2023 4:21 PM CDT us Marixa San NP LAB BLOOD ORDERABLES Final Resul t Performing Organization Address City/[facility]/ZIP Co de Phone Number [facility] [address] Department [place] [address] * (ABNORMAL) CBC with auto differential (02/07/2023 10:42 AM CDT) WBC 8.2 3.8 - 9.9 K/cumm [facility] Hgb 12.5 11.9 - 15.5 g/dL [facility] Hct 41.3 35.6 - 45.5 % [facility] Plt 350 150 - 400 K/cumm [facility] MPV 9.5 9.1 - 12.3 fL [facility] RBC 4.24 3.90 - 5.20 M/cumm [facility] MCV 97.4(H) 81.3 - 96.4 fL [facility] MCH 29.5 27.1 - 33.3 pg [facility] MCHC 30.3(L) 32.3 - 35.7 g/dL [facility] RDW CV 14.7 11.1 - 14.9 % [facility] RDW SD 51.9(H) 35.7 - 48.1 fL [facility] NRBC abs 0.02(H) 0.00 - 0.01 K/cumm [facility] Blood 02/07/2023 10:4 2 AM CDT 02/07/2023 4:21 PM CDT us Marixa San NP LAB BLOOD ORDERABLES Final Resul t Performing Organization Address City/[facility]/ZIP Co de Phone Number [facility] [address] [place] [address] * (ABNORMAL) Comprehensive metabolic panel (02/07/2023 10:42 AM CDT) Sodium 143 135 - 145 mmol/L [facility] Potassium, pl 4.6 3.3 - 4.9 mmol/L [facility] Chloride 104 97 - 110 mmol/L [facility] CO2 28 22 - 32 mmol/L [facility] Anion gap 11 2 - 15 mmol/L [facility] BUN 17 6 - 25 mg/dL [facility] Creatinine 0.82 0.60 - 1.10 mg/dL [facility] Glucose 155 70 - 199 mg/dL [facility] Comment: [...] interpretive data was last revised 2022. Calcium 10.7(H) 8.5 - 10.3 mg/dL [facility] Bilirubin, total 0.3 0.1 - 1.2 mg/dL [facility] Protein, pl 6.9 6.5 - 8.5 g/dL [facility] Albumin 3.9 3.5 - 5.0 g/dL [facility] Alk phos 58 40 - 130 Units/L [facility] ALT 24 7 - 45 Units/L [facility] AST 30 10 - 45 Units/L [facility] Blood 02/07/2023 10:4 2 AM CDT 02/07/2023 4:21 PM CDT us Marixa San NP LAB BLOOD ORDERABLES Final Resul t Performing Organization Address City/[facility] Co de Phone Number [facility] MATTHE[facility] [address] Department of Laboratories [place], [place] [id number] * Pro B-type natriuretic peptide (02/07/2023 10:42 AM CDT) NT-proBNP 378 <=450 pg/mL [facility]LE[facility] MATTHE[facility] Comment: Interpretive Comments: A. Dyspnea in Acute Care Setting All Ages: ?< 300 pg/ml, acute heart failure unlikely. < 50 yrs: ?300 - 450 pg/ml, further investigation warranted. ? > 450 pg/ml, acute heart failure likely. 50 - 74 yrs: ? 300 - 900 pg/ml, further investigation warranted. ? > 900 pg/ml, acute heart failure likely . > or = 75 yrs: ? 450 - 1800 pg/ml, further investigation warranted. ? > 1800 pg/ml, acute heart failure likely. B. Non-acute Setting < 75 yrs ? < 125 pg/ml, rules out heart failure. ? > or = 125 pg/ml, further investigation warranted. > or = 75 yrs ?< 450 pg/ml, rules out heart failure. ? > or = 450 pg/ml, further investigation warranted. - Knowledge of each individual patient's NT-proBNP range may be more useful than using similar cut-points for every patient. Please note that marked elevations in NT-proBNP levels may be observed in state other than Left Ventricular Congestive Failure, including: acute coronary syndromes, right heart strain/failure (including pulmonary embolism and cor pulmonale), critical illness, renal failure, as well as advanced age. - References: 1. Javier RFAZIER et.al. Eur Heart J. 2006:27:330-337. 2. Megan RW, Royce AM. J. AM Karla Cardiol: Cardiovasc Imag. 2009;2: 216- 225. Interpretive Data Last Revised Date: 2018. Blood 02/07/2023 10:4 2 AM CDT 02/07/2023 4:21 PM CDT Marixa San CALCULATING MACHINE MECHANIC LAB BLOOD ORDERABLES Final Resul t Performing Organization Address City/State/ZIP Co mi Phone Number [facility] [address] Department [place] [address] documented in this encounter Visit Diagnoses Diagnosis Seizure (HCC) Other convulsions Acute pulmonary edema (CMS/HCC) (HCC) Unspecified acute edema of lung documented in this encounter Care Teams Condemnation Engineer Relationship Specialty Start Date End Date Servando Torre MD [facility] [address] PCP - General Family Medicine 06/19/22 Mariela Denton MD [facility] [address] [place] [address] Referring Physician Gastroenterology 06/19/22 Lexis Barroso OD [address] [place] [address] Convalescent Sitter 09/19/22 documented as of this encounter
--- OUTSIDE RECORDS SUMMARY | 2024-07-12 19:45 | XMS_ITS | Encounter Summary ---
Author Organization [facility] Healthcare Address [address] [place] [address] Care Team Providers Care Burning Plant Operator Name Role Phone Servando Torre MD Primary Care Provider Mariela Denton MD Unavailable [phone] -[phone] Lexis Barroso OD Unavailable +1- [phone] Encounter Details Date Type Department Care Team (Latest Contact Info) Description 02/17/2023 5:44 PM CDT - 02/17/2023 11:59 PM CDT Hospital Encounter [facility]) [address] [place] [address] Discharge Disposition: Discharge to home or self [...] file 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 ??There will be no report generated by a [facility] Radiologist. Narrative RAD_PACS_[facility] - 02/17/2023 5:44 PM CDT EXAMINATION: ??Images For Reference Purposes Only us Karl Turner MD PhD IMG CT PROCEDURES Final Re sult [facility] documented in this encounter Visit Diagnoses Not on filedocumented in this encounter Care Teams Burning Plant Operator Relationship Specialty Start Date End Date Servando Torre MD [facility] [address] PCP - General Family Medicine 06/19/22 Mariela Denton MD [facility] [address] [place] [address] Referring Physician Gastroenterology 06/19/22 Lexis Barroso OD [address] [place] [address] Diesel Inspector 09/19/22 documented as of this encounter
--- OUTSIDE RECORDS SUMMARY | 2024-07-12 19:45 | XMS_ITS | Encounter Summary ---
Author Organization [facility] Address [address] [place] [address] Care Team Providers Care Inside B2B Sales Name Role Phone Servando Torre MD Primary Care Provider [phone] Mariela Denton MD Unavailable +1 -[phone] Lexis Barroso OD Unavailable +1- [phone] Reason for Referral * Home Health (Routine) - Closed Specialty Diagnoses / Procedures Referred By Contac t Referred To Contact Home Health Services / Home Health and Hospice Diagnoses Seizure (HCC) Multiple fractures of ribs associated with chest compression and cardiopulmonary resuscitation Balance problem Servando Torre MD [address] [place] [address] Phone: tel: fax: [facility] Home Care Services [facility] [address] [place] [address] Referral ID Status Reason Start Date Expiration Date V isits Requested Visits Authorized [id number] Closed Specialty Services Required 02/20/2023 03/21/2024 1 1 Question Answer [id number] Home Health Primary disciplines requested: Physical Therapy Secondary disciplines requested: Occupational Therapy Home Health Services Therapy to Eval/Tx Therapy instructions: Evaluation/treatment Requested Start of Care Date: 24-48 hours Physician to follow patient's care (the person listed here will be responsible for signing ongoing orders): PCP I attest that I or another qualified licensed provider saw the patient 90 days prior to or 30 days post admission and this face to face encounter meets the necessary Home Health requirements. The face to face encounter occurred on (date): 02/20/2023 The encounter with the patient was in whole, or in part, for the following medical condition, which is the primary reason for home health care. (List medical condition): fall, balance I certify that, based on my findings, the following services are medically necessary skilled home health services: Therapy to Eval/Tx Clinical findings that support the need for home care: Frequent falls requiring safety eval/therapy, Medical condition requiring skilled assessment/education I certify that my clinical findings support patient's homebound status. Homebound criteria met because: Abnormal gait/unsteady balance resulting in fall risk, Pain and impaired mobility post-op Reason for Visit * Reason Comments CHRISTELLE With Active Episode 02/12/23 AMH - wo marcio like to discuss a less potent pain medication Encounter Details Date Type Department Care Team (Late st Contact Info) Description 02/20/2023 2:15 PM CDT Office Visit [facility] Primary Care at [address] [phone] Servando Torre MD [address] [place] [id number] Seizure (HCC) (Primary Dx); Multiple fractures of ribs associated with chest compression and cardiopulmonary resuscitation; Balance problem Social History Tobacco Use Types Packs/Day Years [...] on file 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 Gender Identity Female 04/05/2022 6:17 PM CDT Sexual Orientation Straight 04/05/2022 6: 17 PM CDT documented as of this encounter Last Filed Vital Signs Vital Sign Reading Time Taken Comments Blood Pressure 132/80 02/20/2023 2:12 PM CDT Pulse 79 02/20/2023 2:12 PM CDT Temperature 36.7 ??C (98 ??F) 02/20/2023 2:12 PM CDT Respiratory Rate - - Oxygen Saturation 94% 02/20/2023 2:12 PM CDT Inhaled Oxygen Concentration - - Weight 73 kg (161 lb) 02/20/2023 2:12 PM CDT Height 157.5 cm (5' 2 ) 02/20/2023 2:12 PM CDT Body Mass Index 29.45 02/20/2023 2:12 PM CDT documented in this encounter Patient Instructions * Patient Instructions* Servando Torre MD - 02/20/2023 2:15 PM CDT The small hemorrhages seen on CT were thought to be due to chronic hypertension. Sometimes however these can be a focus for seizure Will want to get the EEG done, perhaps repeat CT as well (hopefully we can get neuro follow up squared away soon) Will switch to tylenol #3, which is lower potency; stop oxycodone and OTC or prescription tylenol Continue with current measures, there has been gradual improvement Continue current regimen otherwise I am authorizing to discontinue the O2 Thanks for coming in today! My medical assistants and I are thankful you have trusted us with your care, and hope that you received EXCELLENT care today! Please do not hesitate to call if you have any questions or concerns at [phone]. You may receive a phone call, text, MYCHART message, or e-mail asking about your care today. We would love to hear your feedback on how EXCELLENT your care wastoday! Wishing you better health, always. Dr. Torre * Attachments The following attachments cannot be sent through Care Everywhere. * Acetaminophen/Codeine (By mouth) (Citizen Of [place]) * Concussion (AfterCare(R) Instructions(ER/ED)) (Citizen Of [place]) documented in this encounter Ordered Prescriptions Prescription Sig Dispense Quantity Refills Last Filled Start Date End Date acetaminophen-code ine (TYLENOL with CODEINE #3) 300-30 mg per tablet Take 1 tablet by mouth every 6 (six) hours as needed for pain 21 tablet 02/20/2023 06/11/2023 documented in this encounter Progress Notes * Servando Torre MD - 02/20/2023 2:15 PM CDT Images from the original note were not included. Subjective/Objective Patient ID: Lisa Allen is a 77 y.o. female. Chief Complaint CHRISTELLE With Active Episode (02/12/23 AMH - would like to discuss a less potent pain medication ) Lisa presents with her daughter and granddaughter today. Her granddaughter has been staying with her since she returned from [place]. She still having some rib pain from the fractures, but that is improved. Her breathing is much better than when she was at [place], she is not need any oxygen. She still has confusion in the middle of the night, seems restless when she sleeps. They note her mentation is not quite where it was before the accident. That questions about the CT of her brain, therewere some small bleeds noted in it according to what they recall. A referral was put into Neurology, but they have not yet received an appointment. Current Outpatient Medications: amLODIPine (NORVASC) 5 mg [...] ORAL), Take by mouth, Disp: , Rfl: lidocaine (ASPERCREME) 4 % adhesive patch,medicated, Apply 1 patch topically nightly, Disp: 30 patch, Rfl: 1 mesalamine (APRISO) 0.375 gram 24 hr capsule, Take 4 capsules (1.5 g total) by mouth daily, Disp: 120 capsule, Rfl: 11 metFORMIN (GLUCOPHAGE) 850 mg tablet, Take 1 tablet (850 mg total) by mouth 2 (two) times a day with meals, Disp: 60 tablet, Rfl: 2 multivitamin capsule, Take 1 capsule by mouth [...] every 8 (eight) weeks, Disp: , Rfl: metoprolol tartrate (LOPRESSOR) 50 mg immediate release tablet, Take 1 tablet (50 mg total) by mouth 2 (two) times a day, Disp: 180 tablet, Rfl: 1 Review of Systems Constitutional: Negative for chills, diaphoresis, fatigue and fever. Respiratory: Negative for cough, chest tightness, shortness of breath and wheezing. Cardiovascular: Negative for palpitations and leg swelling. Gastrointestinal: Positive for abdominal pain (Upper). Negative for abdominal distention, constipation, diarrhea, nausea and vomiting. Neurological: Negative for dizziness, tremors, seizures (no seizures since returned from [place]),syncope, facial asymmetry, speech difficulty, light- headedness and headaches. Psychiatric/Behavioral: Negative. BP 132/80 (BP Location: Left arm, Patient Position: Sitting) Pulse 79 Temp 36.7 ??C (98 ??F) (Temporal) Ht 157.5 cm (5' 2 ) Wt 73 kg (161 lb) SpO2 94% BMI 29.45 kg/m?? Physical Exam Vitals reviewed. Cardiovascular: Rate and Rhythm: Normal rate and regular rhythm. Pulmonary: Breath sounds: No wheezing, rhonchi or rales. Chest: Chest wall: Tenderness present. Abdominal: General: Bowel sounds are normal. Palpations: Abdomen is soft. Tenderness: There is no guarding or rebound. Musculoskeletal: Right lower leg: No edema. Left lower leg: No edema. Neurological: General: No focal deficit present. Mental Status: She is alert. Mental status is at baseline. Cranial Nerves: No cranial nerve deficit. Gait: Gait normal. Psychiatric: Mood and Affect: Mood normal. Admission on 02/12/2023, Discharged on 02/12/2023 Component Date Value Ref Range Status WBC 02/12/2023 8.6 3.8 - 9.9 K/cumm Final Hgb 02/12/2023 12.5 11.9 - 15.5 g/dL Final Hct 02/12/2023 39.0 35.6 - 45.5 % Final Plt 02/12/2023 386 150 - 400 K/cumm Final MPV 02/12/2023 8.8 (L) 9.1 - 12.3 fL Final RBC 02/12/2023 4.12 3.90 - 5.20 M/cumm Final MCV 02/12/2023 94.7 81.3 - 96.4 fL Final MCH 02/12/2023 30.3 27.1 - 33.3 pg Final MCHC 02/12/2023 32.1 (L) 32.3 - 35.7 g/dL Final RDW CV 02/12/2023 14.5 11.1 - 14.9 % Final RDW SD 02/12/2023 49.5 (H) 35.7 - 48.1 fL Final NRBC abs 02/12/2023 0.00 0.00 - 0.01 K/cumm Final Sodium 02/12/2023 137 135 - 145 mmol/L Final Potassium, pl 02/12/2023 4.0 3.3 - 4.9 mmol/L Final Chloride 02/12/2023 97 97 - 110 mmol/L Final CO2 02/12/2023 28 22 - 32 mmol/L Final Anion gap 02/12/2023 12 2 - 15 mmol/L Final BUN 02/12/2023 18 6 - 25 mg/dL Final Creatinine 02/12/2023 1.02 0.60 - 1.10 mg/dL Final Glucose 02/12/2023 165 70 - 199 mg/dL Final Comment: Interpretive [...] interpretive data was last revised 2022. Calcium 02/12/2023 10.0 8.5 - 10.3 mg/dL Final Bilirubin, total 02/12/2023 0.2 0.1 - 1.2 mg/dL Final Protein, pl 02/12/2023 6.5 6.5 - 8.5 g/dL Final Albumin 02/12/2023 3.7 3.5 - 5.0 g/dL Final Alk phos 02/12/2023 126 40 - 130 Units/L Final ALT 02/12/2023 16 7 - 45 Units/L Final AST 02/12/2023 19 10 - 45 Units/L Final Color, ur 02/12/2023 Yellow Yellow Final Clarity, ur 02/12/2023 Clear Clear Final Specific gravity, ur 02/12/2023 1.012 1.003 - 1.030 Final pH, urine 02/12/2023 5.0 Final Protein, ur ql 02/12/2023 Negative Negative Final Glucose, ur ql 02/12/2023 Negative Negative Final Ketones, ur 02/12/2023 Negative Negative Final Bilirubin, ur 02/12/2023 Negative Negative Final Blood, ur 02/12/2023 Negative Negative Final Urobilinogen, ur 02/12/2023 <2.0 <2.0 mg/dL Final Nitrite, ur 02/12/2023 Negative Negative Final Leukocyte esterase, ur 02/12/2023 3+ (A) Negative Final UA reflex comment 02/12/2023 Reflex to microscopic UA will be performed. Final Neutrophil abs 02/12/2023 5.8 1.7 - 6.5 K/cumm Final Imm gran abs 02/12/2023 0.0 0.0 - 0.1 K/cumm Final Lymphocyte abs 02/12/2023 2.0 0.8 - 3.3 K/cumm Final Monocyte abs 02/12/2023 0.6 0.2 - 0.8 K/cumm Final Eosinophil abs 02/12/2023 0.2 0.0 - 0.5 K/cumm Final Basophil abs 02/12/2023 0.0 0.0 - 0.1 K/cumm Final Neutrophil pct 02/12/2023 67.7 % Final Comment: Interpretive Data Percent cell count reference ranges are not reported, since discordance with absolute values may lead to misinterpretation of CBC data. Current Interpretive Data was last revised on 2017. Imm gran pct 02/12/2023 0.5 % Final Comment: Interpretive Data Percent cell count reference ranges are not reported, since discordance with absolute values may lead to misinterpretation of CBC data. Current Interpretive Data was last revised on 2017. Lymphocyte pct 02/12/2023 23.0 % Final Comment: Interpretive Data Percent cell count reference ranges are not reported, since discordance with absolute values may lead to misinterpretation of CBC data. Current Interpretive Data was last revised on 2017. Monocyte pct 02/12/2023 6.5 % Final Comment: Interpretive Data Percent cell count reference ranges are not reported, since discordance with absolute values may lead to misinterpretation of CBC data. Current Interpretive Data was last revised on 2017. Eosinophil pct 02/12/2023 1.9 % Final Comment: Interpretive Data Percent cell count reference ranges are not reported, since discordance with absolute values may lead to misinterpretation of CBC data. Current Interpretive Data was last revised on 2017. Basophil pct 02/12/2023 0.4 % Final Comment: Interpretive Data Percent cell count reference ranges are not reported, since discordance with absolute values may lead to misinterpretation of CBC data. Current Interpretive Data was last revised on 2017. WBC, ur 02/12/2023 11-20 (A) 0 - 5 /HPF Final RBC, ur 02/12/2023 0-2 0 - 2 /HPF Final Epithelial cells, squamous, ur 02/12/2023 1-5 0 - 5 /HPF Final Bacteria, ur 02/12/2023 1+ (A) Final Mucous, ur 02/12/2023 Present (A) Final Hyaline casts, ur 02/12/2023 6-10 0 - 10 /LPF Final Culture Reflex Comment 02/12/2023 Reflex to urine culture will be performed. Final Report 02/12/2023 Final Value:Final Report: Less than 100,000 colonies/mL (clinically insignificant growth based on current clinical standards) Testing performed by: [facility], [address] [facility] [place] [address] Organism 02/12/2023 (CLINICALLY INSIGNIFICANT GROWTH Final eGFR 02/12/2023 56 mL/min/1.73 m2 Final Comment: Interpretive Data Reference [...] Current interpretive data was last reviewed 2021. Hospital Outpatient Visit on 02/07/2023 Component Date Value Ref Range Status NT-proBNP 02/07/2023 378 <=450 pg/mL Final Comment: Interpretive Comments: A. Dyspnea in Acute Care Setting All Ages: < 300 pg/ml, acute heart failure unlikely. < 50 yrs: 300 - 450 pg/ml, further investigation warranted. > 450 pg/ml, acute heart failure likely. 50 - 74 yrs: 300 - 900 pg/ml, further investigation warranted. > 900 pg/ml, acute heart failure likely . > or = 75 yrs: 450 - 1800 pg/ml, further investigation warranted. > 1800 pg/ml, acute heart failure likely. B. Non-acute Setting < 75 yrs < 125 pg/ml, rules out heart failure. > or = 125 pg/ml, further investigation warranted. > or = 75 yrs < 450 pg/ml, rules out heart failure. > or = 450 pg/ml, further investigation [...] as advanced age. - References: 1. Javier FRAZIER et.al. Eur Heart J. 2006:27:330-337. 2. Megan MCKEONRoyce AM. J. AM Karla Cardiol: Cardiovasc Imag. 2009;2: 216-225. Interpretive Data Last Revised Date: 2018. Sodium 02/07/2023 143 135 - 145 mmol/L Final Potassium, pl 02/07/2023 4.6 3.3 - 4.9 mmol/L Final Chloride 02/07/2023 104 97 - 110 mmol/L Final CO2 02/07/2023 28 22 - 32 mmol/L Final Anion gap 02/07/2023 11 2 - 15 mmol/L Final BUN 02/07/2023 17 6 - 25 mg/dL Final Creatinine 02/07/2023 0.82 0.60 - 1.10 mg/dL Final Glucose 02/07/2023 155 70 - 199 mg/dL Final Comment: Interpretive [...] interpretive data was last revised 2022. Calcium 02/07/2023 10.7 (H) 8.5 - 10.3 mg/dL Final Bilirubin, total 02/07/2023 0.3 0.1 - 1.2 mg/dL Final Protein, pl 02/07/2023 6.9 6.5 - 8.5 g/dL Final Albumin 02/07/2023 3.9 3.5 - 5.0 g/dL Final Alk phos 02/07/2023 58 40 - 130 Units/L Final ALT 02/07/2023 24 7 - 45 Units/L Final AST 02/07/2023 30 10 - 45 Units/L Final WBC 02/07/2023 8.2 3.8 - 9.9 K/cumm Final Hgb 02/07/2023 12.5 11.9 - 15.5 g/dL Final Hct 02/07/2023 41.3 35.6 - 45.5 % Final Plt 02/07/2023 350 150 - 400 K/cumm Final MPV 02/07/2023 9.5 9.1 - 12.3 fL Final RBC 02/07/2023 4.24 3.90 - 5.20 M/cumm Final MCV 02/07/2023 97.4 (H) 81.3 - 96.4 fL Final MCH 02/07/2023 29.5 27.1 - 33.3 pg Final MCHC 02/07/2023 30.3 (L) 32.3 - 35.7 g/dL Final RDW CV 02/07/2023 14.7 11.1 - 14.9 % Final RDW SD 02/07/2023 51.9 (H) 35.7 - 48.1 fL Final NRBC abs 02/07/2023 0.02 (H) 0.00 - 0.01 K/cumm Final Neutrophil abs 02/07/2023 5.4 1.7 - 6.5 K/cumm Final Imm gran abs 02/07/2023 0.1 0.0 - 0.1 K/cumm Final Lymphocyte abs 02/07/2023 1.8 0.8 - 3.3 K/cumm Final Monocyte abs 02/07/2023 0.7 0.2 - 0.8 K/cumm Final Eosinophil abs 02/07/2023 0.2 0.0 - 0.5 K/cumm Final Basophil abs 02/07/2023 0.0 0.0 - 0.1 K/cumm Final Neutrophil pct 02/07/2023 66.4 % Final Comment: Interpretive Data Percent cell count reference ranges are not reported, since discordance with absolute values may lead to misinterpretation of CBC data. Current Interpretive Data was last revised on 2017. Imm gran pct 02/07/2023 1.3 % Final Comment: Interpretive Data Percent cell count reference ranges are not reported, since discordance with absolute values may lead to misinterpretation of CBC data. Current Interpretive Data was last revised on 2017. Lymphocyte pct 02/07/2023 21.4 % Final Comment: Interpretive Data Percent cell count reference ranges are not reported, since discordance with absolute values may lead to misinterpretation of CBC data. Current Interpretive Data was last revised on 2017. Monocyte pct 02/07/2023 8.3 % Final Comment: Interpretive Data Percent cell count reference ranges are not reported, since discordance with absolute values may lead to misinterpretation of CBC data. Current Interpretive Data was last revised on 2017. Eosinophil pct 02/07/2023 2.2 % Final Comment: Interpretive Data Percent cell count reference ranges are not reported, since discordance with absolute values may lead to misinterpretation of CBC data. Current Interpretive Data was last revised on 2017. Basophil pct 02/07/2023 0.4 % Final Comment: Interpretive Data Percent cell count reference ranges are not reported, since discordance with absolute values may lead to misinterpretation of CBC data. Current Interpretive Data was last revised on 2017. eGFR 02/07/2023 73 mL/min/1.73 m2 Final Comment: Interpretive Data Reference [...] Diagnoses and all orders for this visit: Seizure (HCC) (Primary) Comments: Will check on neurology EEG ordered for [facility] No report of seizure activity in the interim CT did show some findings Orders: - EEG; Future - Ambulatory referral to Home Health; Future Multiple fractures of ribs associated with chest compression and cardiopulmonary resuscitation Comments: Will switch her to Tylenol No. 3 instead of oxycodone to decrease potency We will discontinue home oxygen Orders: - Ambulatory referral to Home Health; Future Balance problem Comments: Will try to get home health set up for physical therapy and occupational therapy Orders: - Ambulatory referral to Home Health; Future Other orders - acetaminophen-codeine (TYLENOL with CODEINE #3) 300-30 mg per tablet; Take 1 tablet by mouth every 6 (six) hours as needed for pain Neuro? di Knutson? Servando Torre MD This office note has been partially dictated using M*Style on Screen software, and as a result portions of the record may have been created with this software. Occasional wrong-word or '[id number]' substitutions may have occurred due to the inherent limitations of voice recognition software. Read the chartcarefully and recognize, using context, where substitutions have occurred. documented in this encounter Plan of Treatment Scheduled Referrals Name Type Priority Associated Diagnoses Orde r Schedule Ambulatory referral to Home Health Outpatient Referral Routine Seizure (HCC) Multiple fractures of ribs associated with chest compression and cardiopulmonary resuscitation Balance problem 1 Occurrences starting 02/20/2023 until 08/23/2023 documented as of this encounter Visit Diagnoses Diagnosis Seizure (HCC)- Primary Other convulsions Multiple fractures of ribs associated with chest compression and cardiopulmonary resuscitation Balance problem Abnormality of gait documented in this encounter Care Teams Inside B2B Sales Relationship Specialty Start Date End Date Servando Torre MD [facility] [address] PCP - General Family Medicine 06/19/22 Mariela Denton MD [facility] [address] [place] [address] Referring Physician Gastroenterology 06/19/22 Lexis Barroso OD [address] [place] [id number] Power And Recovery Supervisor 09/19/22 documented as of this encounter
--- OUTSIDE RECORDS SUMMARY | 2024-07-12 19:45 | XMS_ITS | Encounter Summary ---
Author Organization [facility] Address [address] [place] [address] Phone Care Team Providers Care Senior Enlisted Advisor Name Role Phone Servando Torre MD Primary Care Provider [phone] Mariela Denton MD Unavailable [phone] Lexis Barroso OD Unavailable [phone]- [phone] Encounter Details Date Type Department Care Team (Late st Contact Info) Description 03/07/2023 Documentation [facility] Epilepsy [address] [facility] [address] [place] [address] [place] [address] Adria Burleson MD [address] [facility] [address] [place] [address] Social History Tobacco Use Types [...] on file 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 Gender Identity Female 04/05/2022 6:17 PM CDT Sexual Orientation Straight 04/05/2022 6: 17 PM CDT documented as of this encounter Ordered Prescriptions Prescription Sig Dispense Quantity Refills Last Filled Start Date End Date levETIRAcetam (KEPPRA) 500 mg tablet Take 1 tablet (500 mg total) by mouth 2 (two) times a day 180 tablet 1 03/07/2023 03/17/2023 documented in this encounter Progress Notes * Adria Burleson MD - 03/07/2023 9:28 PM CDT rEEG done today showed R FT dcs and R temporal slowing In light of her seizure, and now with an EEG with IEDs, I recommend starting ASM therapy I called the pt and spoke with her daughter They're currently in an OSH ED due to nausea and issues speaking I defer acute evaluation and treatment to ED team From our standpoint, I went over EEG results and advised initiation of Keppra I'll send a script to her pharmacy: Keppra 500 mg bid Discussed side effects, which we will monitor I'd like to see her in clinic in the next couple of weeks All questions answered documented in this encounter Plan of Treatment Not on file documented as of this encounter Visit Diagnoses Not on filedocumented in this encounter Care Teams Senior Enlisted Advisor Relationship Specialty Start Date End Date Servando Torre MD [address] [address] PCP - General Family Medicine 06/19/22 Mariela Denton MD [address] [place] [address] Referring Physician Gastroenterology 06/19/22 Lexis Barroso OD [address] [place] [id number] Or Assistant 09/19/22 documented as of this encounter
--- OUTSIDE RECORDS SUMMARY | 2024-07-12 19:45 | XMS_ITS | Encounter Summary ---
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 Gender Identity Female 04/05/2022 6:17 PM CDT Sexual Orientation Straight 04/05/2022 6: 17 PM CDT documented as of this encounter Plan of Treatment Not on file documented as of this encounter Procedures Procedure Name Priority Date/Time Associated Diagnosis Comments SCAN - LABS 12/18/2022 documented in this encounter Results * SCAN - LABS (12/18/2022) Provider Scanning Final Result documented in this encounter Visit Diagnoses Not on filedocumented in this encounter Care Teams High Rigger Relationship Specialty Start Date End Date Servando Torre MD [address] [facility] [address] [place] [address] PCP - General Family Medicine 06/19/22 Mariela Denton MD [address] [place] [address] Referring Physician Gastroenterology 06/19/22 Lexis Barroso OD [address] [place] [id number] Colorist 09/19/22 documented as of this encounter
--- OUTSIDE RECORDS SUMMARY | 2024-07-12 19:45 | XMS_ITS | Encounter Summary ---
Author Organization [facility] Medical Group Address [address] [facility] [address] [place] [address] Care Team Providers Care Patching Machine Operator Name Role Phone Servando Torre MD Primary Care Provider [phone]- [phone] Mariela Denton MD Unavailable [phone] [phone] Lexis Barroso OD Unavailable +1- [phone] Encounter Details Date Type Department Care Team (Late st Contact Info) Description 02/07/2023 10:45 AM CDT Lab [facility] Medical [facility] Outpatient Lab at [address] [address] Seizure (HCC) (Primary Dx) Social History Tobacco [...] on file 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 Gender Identity Female 04/05/2022 6:17 PM CDT Sexual Orientation Straight 04/05/2022 6: 17 PM CDT documented as of this encounter Plan of Treatment Not on file documented as of this encounter Visit Diagnoses Diagnosis Seizure (HCC)- Primary Other convulsions documented in this encounter Care Teams Patching Machine Operator Relationship Specialty Start Date End Date Servando Torre MD [address] [facility] [address] [place] [address] PCP - General Family Medicine 06/19/22 Mariela Denton MD [address] [place] [address] Referring Physician Gastroenterology 06/19/22 Lexis Barroso OD [address] [place] [address] Flanging Roll Operator 09/19/22 documented as of this encounter
--- OUTSIDE RECORDS SUMMARY | 2024-07-12 19:45 | XMS_ITS | Encounter Summary ---
Author Organization [facility] Address [address] [facility] [address] [place] [address] Care Team Providers Care Head Up Operator Helper Name Role Phone Servando Torre MD Primary Care Provider [phone]- [phone] Mariela Denton MD Unavailable [phone] [phone] Lexis Barroso OD Unavailable [phone]- [phone] Reason for Visit * Reason Comments Health Maintenance 3 mo Encounter Details Date Type Department Care Team (Late st Contact Info) Description 12/19/2022 2:00 PM CDT Office Visit [facility] Primary Care at [address] [address] Servando Torre MD [address] [place] [address] [address] [place] [address] Hypertension associated with type 2 diabetes mellitus (HCC) (Primary Dx); Hyperlipidemia due to type 2 diabetes mellitus (HCC); Gastroesophageal reflux [...] file 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 Gender Identity Female 04/05/2022 6:17 PM CDT Sexual Orientation Straight 04/05/2022 6: 17 PM CDT documented as of this encounter Last Filed Vital Signs Vital Sign Reading Time Taken Comments Blood Pressure 132/82 12/19/2022 1:53 PM CDT Pulse 75 12/19/2022 1:53 PM CDT Temperature - - Respiratory Rate 18 12/19/2022 1:53 PM CDT Oxygen Saturation 90% 12/19/2022 1:53 PM CDT Inhaled Oxygen Concentration - - Weight 72.9 kg (160 lb 12.8 oz) 12/19/2022 1:53 PM CDT Height 157.5 cm (5' 2 ) 12/19/2022 1:53 PM CDT Body Mass Index 29.41 12/19/2022 1:53 PM CDT documented in this encounter Patient Instructions * Patient Instructions* Servando Torre MD - 12/19/2022 2:00 PM CDT A1c was improved, nicely Will continue metformin, BP is borderline today Continuing amlodipine, metoprolol Cholesterol pretty well controlled Continuing pravastatin Continuing pantoprazole, probiotic Thanks for coming in today! My medical assistants and I are thankful you have trusted us with your care, and hope that you received EXCELLENT care today! Please do not hesitate to call if you have any questions or concerns at [phone]. You may receive a phone call, text, MYCHART message, or e-mail asking about your care today. We would love to hear your feedback on how EXCELLENT your care wastoday! Wishing you better health, always. Dr. Torre documented in this encounter Progress Notes * Servando Torre MD - 12/19/2022 2:00 PM CDT Images from the original note were not included. Subjective/Objective Patient ID: Lisa Allen is a 77 y.o. female. Chief Complaint Health Maintenance (3 mo) Diabetes Pertinent negatives for hypoglycemia include no headaches. Pertinent negatives for diabetes includeno blurred vision, no chest pain, no fatigue, no polydipsia, no polyphagia, no polyuria, no weakness and no weight loss. Hypertension Pertinent negatives include no blurred vision, chest pain, headaches, neck pain, palpitations or shortness of breath. Hyperlipidemia This is a chronic problem. Pertinent negatives include no chest pain or shortness of breath. The current treatment provides moderate improvement of lipids. Current Outpatient Medications: amLODIPine (NORVASC) 5 mg [...] of 01/2023., Disp: 90 tablet, Rfl: [address]/ER (UCERIS) 9 mg tablet, delayed & ext.release, Take 1 tablet (9 mg total) by mouth daily, Disp: 30 tablet, Rfl: 0 cholecalciferol (VITAMIN D-3) 2000 unit tablet, Take 1 tablet (2,000 Units total) by mouth daily Low Vitamin D level from 05/30/2022., Disp: 90 tablet, Rfl: 3 diphenoxylate-atropine (LOMOTIL) 2.5-0.025 mg per tablet, Take 1 tablet by mouth 2 (two) times a day, Disp: , Rfl: ferrous sulfate ER 324 mg (65 mg iron) EC tablet, Take 1 tablet (324 mg total) by mouth daily with breakfast, Disp: 90 tablet, Rfl: 1 Lactobacillus acidophilus (PROBIOTIC ORAL), Take by mouth, Disp: , Rfl: mesalamine (APRISO) 0.375 gram [...] Disp: , Rfl: Review of Systems Constitutional: Negative. Negative for fatigue and weight loss. HENT: Negative. Eyes: Negative for blurred vision. Respiratory: Negative for cough, shortness of breath and wheezing. Cardiovascular: Negative for chest pain and palpitations. Gastrointestinal: Negative. Endocrine: Negative for polydipsia, polyphagia and polyuria. Genitourinary: Negative. Musculoskeletal: Negative for neck pain. Neurological: Negative for weakness and headaches. Psychiatric/Behavioral: Negative. BP 132/82 (BP Location: Left arm, Patient Position: Sitting) Pulse 75 Resp 18 Ht 157.5 cm (5'2 ) Wt 72.9 kg (160 lb 12.8 oz) SpO2 90% BMI 29.41 kg/m?? Physical Exam Vitals reviewed. Constitutional: Appearance: She is overweight. She is not ill-appearing. HENT: Head: Normocephalic and atraumatic. Cardiovascular: Rate and Rhythm: Normal rate and regular rhythm. Pulses: Dorsalis pedis pulses are 1+ on the right side and 1+ on the left side. Heart sounds: No murmur heard. No friction rub. No gallop. Pulmonary: Breath sounds: No wheezing, rhonchi or rales. Musculoskeletal: Right lower leg: No edema. Left lower leg: No edema. Right foot: Deformity (hallus valgus) present. Left foot: Deformity (hallux valgus) present. Feet: Right Foot: Monofilament exam: normal. Protective Sensation: 6 sites tested. 6 sites sensed. Left Foot: Monofilament exam: normal. Protective Sensation: 6 sites tested. 6 sites sensed. Neurological: Mental Status: She is alert and oriented to person, place, and time. Mental status is at baseline. Psychiatric: Mood and Affect: Mood normal. Admission on 11/29/2022, Discharged on 11/29/2022 Component Date Value Ref Range Status Glucose, POC 11/29/2022 166 70 - 199 mg/dL Final Comment: Interpretive Data Glucose is assumed to be non-fasting. Fasting Glucose reference ranges are: 0 - 150 years: 70 mg/dL - 99 mg/dL Current interpretive data was last revised on 2014. POC Performer 11/29/2022 [id number] Final POC Device Number 11/29/2022 [id number] Final Assessment/Plan Diagnoses and all orders for this visit: Hypertension associated with type 2 diabetes mellitus (HCC) (Primary) Assessment & Plan: A1c was improved, nicely Will continue metformin, BP is borderline today Continuing amlodipine, metoprolol Orders: - Hemoglobin A1c; Future - Albumin Creatinine Ratio, Urine; Future Hyperlipidemia due to type 2 diabetes mellitus (HCC) Assessment & Plan: Cholesterol pretty well controlled Continuing pravastati Orders: - Hemoglobin A1c; Future - Albumin Creatinine Ratio, Urine; Future Gastroesophageal reflux disease without esophagitis Comments: continuing Protonix Servando Torre MD This office note has been partially dictated using Cloud[employer] software, and as a result portions of the record may have been created with this software. Occasional wrong-word or 'widit-[id number]' substitutions may have occurred due to the inherent limitations of voice recognition software. Read the chartcarefully and recognize, using context, where substitutions have occurred. documented in this encounter Miscellaneous Notes * Assessment & Plan Note - Servando Torre MD - 12/19/2022 2:10 PM CDT Associated Problem(s): Hyperlipidemia (Resolved 09/19/2023) Cholesterol pretty well controlled Continuing pravastati * Assessment & Plan Note - Servando Torre MD - 12/19/2022 2:09 PM CDT Associated Problem(s): Hypertension (Resolved 09/19/2023) A1c was improved, nicely Will continue metformin, BP is borderline today Continuing amlodipine, metoprolol * Addendum Note - Mari Thomas CLT - 12/19/2022 2:00 PM CDTAddended by: MARI THOMAS on: 03/21/2023 03:19 PM Modules accepted: Orders * Addendum Note - Mari Thomas CLT - 12/19/2022 2:00 PM CDTAddended by: MARI THOMAS on: 03/21/2023 03:19 PM Modules accepted: Orders documented in this encounter Plan of Treatment Not on file documented as of this encounter Results * (ABNORMAL) Hemoglobin A1c (03/21/2023 3:20 PM CDT) Hgb A1C 6.1(H) 4.0 - 5.6 % CERNER Estimated Average Glucose 128 mg/dL AILEEN Comment: The ADA recommends reporting an estimated Average Glucose (eAG) with all Hemoglobin A1c results using the equation derived from a study of 507 normal and diabetic adults. ??Minority populations were underrepresented and children were not included. ?? (Diabetes Care 31:5360-6605, 2007). ??The eAG is not equivalent to a fasting glucose. Blood 03/21/2023 3:20 PM CDT 03/21/2023 6:04 PM CDT Servando Torre MD LAB BLOOD ORDERABLES Final Result Performing Organization Address [facility] Co wy Phone Number ALBERTCITLALI [phone] [place] [address] * (ABNORMAL) Albumin Creatinine Ratio, Urine (03/21/2023 [...] PM CDT 03/21/2023 6:04 PM CDT Result [facility] Servando Torre MD LAB URINE ORDERABLES Final Result Performing Organization Address [facility] Co de Phone Number AILEEN MATTHEW [phone] [place] [address] documented in this encounter Visit Diagnoses Diagnosis Hypertension associated with type 2 diabetes mellitus (HCC)- Primary Hyperlipidemia due to type 2 diabetes mellitus (HCC) Gastroesophageal reflux disease without esophagitis Esophageal reflux documented in this encounter Care Teams Head Up Operator Helper Relationship Specialty Start Date End Date Servando Torre MD [address] [address] PCP - General Family Medicine 06/19/22 Mariela Denton MD [address] [place] [address] Referring Physician Gastroenterology 06/19/22 Lexis Barroso OD [address] [place] [address] Grading Machine Feeder 09/19/22 documented as of this encounter
--- OUTSIDE RECORDS SUMMARY | 2024-07-12 19:45 | XMS_ITS | Encounter Summary ---
Author Organization [facility] Healthcare Address [address] [place] [address] Care Team Providers Care Provider Relations Specialist Name Role Phone Servando Torre MD Primary Care Provider [phone] Mariela Denton MD Unavailable [phone] [phone] Lexis Barroso OD Unavailable [phone]- [phone] Encounter Details Date Type Department Care Team (Latest Contact Info) Description 02/17/2023 5:44 PM CDT - 02/17/2023 11:59 PM CDT Hospital Encounter [facility] [address] [place] [address] Discharge Disposition: Discharge to home or self [...] file 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
--- OUTSIDE RECORDS SUMMARY | 2024-07-12 19:45 | XMS_ITS | Encounter Summary ---
Author Organization [facility] Healthcare Address [address] [place] [address] Care Team Providers Care Technical Aid Name Role Phone Servando Torre MD Primary Care Provider [phone] Mariela Denton MD Unavailable [phone] [phone] Lexis Barroso OD Unavailable [phone]- [phone] Encounter Details Date Type Department Care Team (Latest Contact Info) Description 02/17/2023 5:44 PM CDT - 02/17/2023 11:59 PM CDT Hospital Encounter [facility] [address] [place] [address] Discharge Disposition: Discharge to home or self [...] on file 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 ??There will be no report generated by a [facility] Radiologist. Narrative [facility]_P[facility] - 02/17/2023 5:44 PM CDT EXAMINATION: ??Images For Reference Purposes Only us Karl Turner MD PhD IMG XR PROCEDURES Final Re sult [facility] documented in this encounter Visit Diagnoses Not on filedocumented in this encounter Care Teams Technical Aid Relationship Specialty Start Date End Date Servando Torre MD [facility] [address] [place] [address] PCP - General Family Medicine 06/19/22 Mariela Denton MD [facility] [address] [place] [address] Referring Physician Gastroenterology 06/19/22 Lexis Barroso OD [address] [place] [address] Master Baker 09/19/22 documented as of this encounter
--- OUTSIDE RECORDS SUMMARY | 2024-07-12 19:45 | XMS_ITS | Encounter Summary ---
Author Organization [facility] Healthcare Address [address] [place] [address] Care Team Providers Care Orthopedic Physician Assistant Name Role Phone Servando Torre MD Primary Care Provider [phone] Mariela Denton MD Unavailable [phone] [phone] Lexis Barroso OD Unavailable +1- [phone] Reason for Visit * Reason Comments Vomiting Encounter Details Date Type Department Care Team (Late st Contact Info) Description 03/08/2023 12:09 AM CDT - 03/08/2023 3:58 AM CDT Emergency [facility] Emergency Department [address] [place] [address] Silver Montana MD [address] [place] [id number] Seizure (HCC) (Primary Dx) Discharge Disposition: Discharge to home or self [...] on file Legal Sex Female 9:30 AM [employer] S[employer]IC[employer] Gender Identity Female 04/05/2022 6:17 PM CDT Sexual Orientation Straight 04/05/2022 6: 17 PM CDT documented as of this encounter Last Filed Vital Signs Vital Sign Reading Time Taken Comments Blood Pressure 161/72 03/08/2023 3:36 AM CDT Pulse 72 03/08/2023 3:36 AM CDT Temperature 37 ??C (98.6 ??F) 03/08/2023 3:36 AM CDT Respiratory Rate 20 03/08/2023 3:36 AM CDT Oxygen Saturation 93% 03/08/2023 3:36 AM CDT Inhaled Oxygen Concentration - - Weight - - Height - - Body Mass Index - - documented in this encounter Discharge Instructions * Attachments The following attachments cannot be sent through Care Everywhere. * Seizure, New Onset, Unknown Cause (Adult) (Australian) documented in this encounter Medications at Time [...] times a day 180 tablet 1 03/07/2023 3 lidocaine (ASPERCREME) 4 % adhesive patch,medicated [...] documented in this encounter ED Notes * Silver Montana MD - 03/08/2023 12:52 AM CDT HPI Chief Complaint Patient presents with ??? Vomiting This is a 77-year-old female, who has been brought to the emergency room for evaluation of suspected seizures. The family states they were about a month ago in [place], and the patient was found 1 day unresponsive, and was admitted to a hospital in [place], where she stayed for 3 days. she did have an extensive workup and then was discharged. The patient was seen by Neurology when she came back, and was scheduled to have an EEG today. The granddaughter states since 4:00 a.m., the patient has been having episodes of staying still and steroid, and talking worse than do not make sense or unrelated to the topic. For few seconds she is does not seem to be responding, she just staring standing.This happened 5 times today. Did not happened during the EEG. But they state the patient need to besleep deprived for the EEG. Because discontinued happening after EEG was completed, the patient wasbrought to the emergency room for evaluation. The daughter states during the last week she is been noting more confused, it was happening even before she went to [place], but now is more often. The patient in the emergency room states she has a frontal headache, otherwise she feels back to her normal. The granddaughter states she did vomit once today. No chest pain, no shortness a breath, no abdominal pain, no fevers, no chills. History provided by: Patient and medical records Patient History: Patient Active Problem List Diagnosis Date Noted ??? Acute respiratory distress 02/07/2023 ??? Acute pulmonary edema (CMS/HCC) (HCC) 01/31/2023 ??? Multiple fractures of ribs associated with chest compression and cardiopulmonary resuscitation 01/31/2023 ??? Closed fracture of multiple ribs of left side 01/30/2023 ??? Elevated troponin 01/30/2023 ??? Liver nodule 01/30/2023 ??? Neck pain 01/30/2023 ??? Osteopenia 01/30/2023 ??? Pulmonary nodules 01/30/2023 ??? Seizure (HCC) 01/30/2023 ??? GERD (gastroesophageal reflux disease) 01/30/2023 ??? HTN (hypertension) 01/30/2023 ??? Prediabetes 01/30/2023 ??? Ulcerative colitis (HCC) 01/30/2023 ??? Diabetes mellitus (HCC) 09/19/2022 ??? Anemia 09/19/2022 ??? GERD (gastroesophageal reflux disease) 09/19/2022 ??? Hyperlipidemia 09/19/2022 ??? Hypertension 09/19/2022 ??? Ulcerative colitis (HCC) 09/19/2022 ??? 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 Gout 09/19/2022 ??? Initial Medicare annual wellness visit 06/23/2022 ??? Chronic ulcerative colitis, unspecified complication (HCC) 06/18/2022 ??? Ear ringing 03/03/2013 ??? Asymmetrical sensorineural hearing loss 03/03/2013 ??? Stress fracture 07/07/2012 ??? Arthralgia of hip 02/06/2011 Past Medical History: Diagnosis Date ??? Anemia ??? Broken ribs 8 ??? Detached retina ??? Diabetes mellitus (HCC) ??? GERD (gastroesophageal reflux disease) ??? Gout ??? Hyperlipidemia ??? Hypertension ??? 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 Prediabetes 06/19/2022 ??? Ulcerative colitis (HCC) 2019 Past Surgical History: Procedure Laterality Date ??? COLONOSCOPY ??? FEMUR FRACTURE SURGERY Left 2010 ??? PARTIAL HIP ARTHROPLASTY Left 2014 ??? RETINAL DETACHMENT SURGERY Right Family History Problem Relation Age of Onset ??? Atrial fibrillation Mother ??? Breast cancer Mother ??? Stroke Mother ??? Cancer Father Social History Tobacco Use ??? Smoking status: Never Passive exposure: Never ??? Smokeless tobacco: Never Vaping Use ??? Vaping Use: Never used Substance and Sexual Activity ??? Alcohol use: Not on file ??? Drug use: Never ??? Sexual activity: Not on file Social History Social History Narrative ??? Not on file Review of Systems Review of Systems All other systems reviewed and are negative. Physical Exam ED Triage Vitals [03/07/232040] Temp Pulse Resp BP SpO2 36.9 ??C (98.5 ??F) 82 16 (!) 172/68 95 % Temp src Heart Rate Source Patient Position BP Location FiO2 (%) Temporal -- -- -- -- Height Height Method Weight Weight Method -- -- -- -- Physical Exam Vitals and nursing note reviewed. Constitutional: Appearance: Normal appearance. HENT: Head: Normocephalic and atraumatic. Nose: Nose normal. Eyes: Pupils: Pupils are equal, round, and reactive to light. Cardiovascular: Rate and Rhythm: Normal rate and regular rhythm. Pulses: Normal pulses. Heart sounds: Normal heart sounds. Pulmonary: Effort: Pulmonary effort is normal. Breath sounds: Normal breath sounds. Abdominal: General: Abdomen is flat. Bowel sounds are normal. Palpations: Abdomen is soft. Musculoskeletal: General: Normal range of motion. Cervical back: Normal range of motion. Skin: General: Skin is warm. Capillary Refill: Capillary refill takes less than 2 seconds. Neurological: General: No focal deficit present. Mental Status: She is alert and oriented to person, place, and time. Mental status is at baseline. MDM NIH Score Level of Consciousness (1a.): 0 LOC Questions (1b.): 0 LOC Commands (1c.): 0 Best Gaze (2.): 0 Visual (3.): 1 Facial Palsy (4.): 0 Motor Arm, Left (5a.): 0 Motor Arm, Right (5b.): 0 Motor Leg, Left (6a.): 0 Motor Leg, Right (6b.): 0 Limb Ataxia (7.): 0 Sensory (8.): 0 Best Language (9.): 0 Dysarthria (10.): 0 Extinction and Inattention (11.) (Formerly Neglect): 0 Total: 1 Medical Decision Making Differential diagnosis includes but not limited, to seizures, acute stroke, TIA, complex migraines.We will do a head CT. The daughter states the neurologist called back, and told him that there is seizure activity in the EEG. Amount and/or Complexity of Data Reviewed Radiology: ordered. ED Course as of 03/08/23 0250 Time: 03/08 249 Comment: No seizure activity on a normal this has been noted in the emergency room. Head CT is negative. The case has been discussed with Neurology who also agrees we started the patient on Keppra. Keppra p.o. started. The family was indicated that the sleep deprivation, probably precipitated thesefindings, and we will need to follow with the Neurology as an outpatient. By: Silver Montana MD Final diagnoses: None Silver Montana MD 03/08/23 0055 * Jamila Reveles RN - 03/07/2023 8:36 PM CDT Pt has been having N/V on and off today. Pt also has been having dizziness today. Pt had an EEG done today because she has been having confusion since 01/30. Pt had a seizure back in January with no josh. She was seen at a hospital in [place] that day. documented in this encounter Miscellaneous Notes * ED Procedure Note - Silver Montana MD - 03/08/2023 2:48 AM CDTAssociated Order(s): ECG 12 lead Procedure ECG 12 lead Date/Time: 03/08/2023 2:49 AM Performed by: Silver Montana MD Authorized by: Jim Dobson MD Rate: ECG rate: 76 ECG rate assessment: normal Rhythm: Rhythm: sinus rhythm Ectopy: Ectopy: none QRS: QRS axis: Normal Conduction: Conduction: normal ST segments: ST segments: Normal T waves: T waves: normal Interpretation: Interpretation: normal Silver Montana MD 03/08/23 0249 documented in this encounter Plan of Treatment Not on file documented as of this encounter Procedures Procedure Name Priority Date/Time Associated Diagnosis Comments CT HEAD WO CONTRAST ED 03/08/2023 1 :28 AM CDT EGFR STAT 03/08/2023 12:37 AM CDT DIFFERENTIAL AUTO STAT 03/08/2023 12: 37 AM CDT CBC WITH AUTO DIFFERENTIAL STAT 03/08/2023 12:37 AM CDT MAGNESIUM STAT 03/08/2023 12:37 AM CDT COMPREHENSIVE METABOLIC PANEL STAT 03/08/2023 12:37 AM CDT ECG 12-LEAD STAT 03/08/2023 12:31 AM CDT documented in this encounter Results * CT Head WO Contrast (03/08/2023 1:28 AM CDT) Anatomical Region Laterality Modality Head and Neck N/A Computed Tomogra phy 03/08/2023 2:32 AM CDT Narrative 03/08/2023 2:34 AM CDT EXAM DESCRIPTION: ?? CT HEAD WO CONTRAST REASON FOR STUDY: ?? Mental status change, unknown cause ?? Pt has been having N/V on and off today. ??Pt also has been having dizziness today. Pt had an EEG done today because she has been having confusion since 01/30. Pt had a seizure back in January with no josh. ? TECHNIQUE: Axial images acquired through the brain without intravenous contrast. ??Coronal and sagittal reformats were performed. ??Images stored on PACS. ??Automated mA/kV exposure control was used as a dose optimization technique for this examination and patient examination was performed in strict accordance with principles of ALARA. COMPARISON: ?? Head CT of February 12, 2023. FINDINGS: BRAIN: ?? There is no midline shift, mass or mass effect. The ventricles, cisterns and sulci are globally and proportionally prominent consistent with atrophy. There is normal differentiation of the kenneyd-white matter. There is no intracranial hemorrhage. ?There is decreased attenuation in the periventricular white matter, nonspecific, but likely related to small vessel ischemic change. ??There is no significant change as compared to previous study. EXTRA-AXIAL SPACES: ?? No fluid collections. No masses. CALVARIUM: ?? No fracture. SINUSES/MASTOIDS: ?? No fluid or mucosal thickening. ORBITS: ?? No significant abnormality. OTHER: ?? No other significant abnormality. IMPRESSION: ?? No acute intracranial abnormality. Global atrophy and white matter changes consistent with small-vessel ischemic disease. THIS IS AN ELECTRONICALLY VERIFIED FINAL REPORT 03/08/2023 2:34 AM - Electronically signed by ??Radha Mendes M.D. SN: SN D: ??03/08/2023 2:34 AM T: ??03/08/2023 2:34 AM Report ID: [id number] Reading Location: ??[id number] Procedure Note Radha Mendes MD - 03/08/2023 EXAM DESCRIPTION: CT HEAD WO CONTRAST REASON FOR STUDY: Mental status change, unknown cause Pt has been having N/V on and off today. Pt also has been havingdizziness today. Pt had an EEG done today because she has been having confusionsince 01/30. Pt had a seizure back in January with no josh. TECHNIQUE: Axial images acquired through the brain without intravenous contrast. Coronal and sagittal reformats were performed. Images storedon PACS. Automated mA/kV exposure control was used as a dose optimization technique for this examination and patient examination was performed instrict accordance with principles of ALARA. COMPARISON: Head CT of February 12, 2023. FINDINGS: BRAIN: There is no midline shift, mass or mass effect. The ventricles, cisterns and sulci are globally and proportionally prominent consistentwith atrophy. There is normal differentiation of the kennedy-white matter. Thereis no intracranial hemorrhage. There is decreased attenuation in the periventricular white matter, nonspecific, but likely related to smallvessel ischemic change. There is no significant change as compared to previous study. EXTRA-AXIAL SPACES: No fluid collections. No masses. CALVARIUM: No fracture. SINUSES/MASTOIDS: No fluid or mucosal thickening. ORBITS: No significant abnormality. OTHER: No other significant abnormality. IMPRESSION: No acute intracranial abnormality. Global atrophy and white matter changes consistent with small-vesselischemic disease. THIS IS AN ELECTRONICALLY VERIFIED FINAL REPORT 03/08/2023 2:34 AM - Electronically signed by Radha Mendes M.D. SN: Report ID: [id number] Reading Location: [id number] Silver Montana MD IMG CT PROCEDURES Final Resu lt * eGFR (03/08/2023 12:37 AM CDT) eGFR 88 mL/min/1. 73 m2 [facility] ([place]) Comment: Interpretive Data Reference Interval Normal ?>/= [...] interpretive data was last reviewed 2021. Blood 03/08/2023 12:3 7 AM CDT 03/08/2023 12:46 AM CDT us Jim Dobson MD LAB BLOOD ORDERABLE S Final Result [facility]LEEN [facility]IG[facility] ([place]) [facility] [place] [address] * Differential, auto (03/08/2023 12:37 AM CDT) Neutrophil abs 5.7 1.7 - 6.5 K/cumm [facility]ELEN [facility] ([place]) Imm gran abs 0.0 0.0 - 0.1 K/cumm [facility] ([place]) Lymphocyte abs 1.7 0.8 - 3.3 K/cumm [facility] ([place]) Monocyte abs 0.5 0.2 - 0.8 K/cumm [facility] ([place]) Eosinophil abs 0.1 0.0 - 0.5 K/cumm [facility] ([place]) Basophil abs 0.0 0.0 - 0.1 K/cumm [facility] ([place]) Neutrophil pct 70.8 % [facility] ([place]) Comment: Interpretive [...] was last revised on 2017. Lymphocyte pct 20.8 % [facility] ([place]) Comment: Interpretive Data Percent cell count reference ranges are not reported, since discordance with absolute values may lead to misinterpretation of CBC data. Current Interpretive Data was last revised on 2017. Monocyte pct 6.7 % [facility] ([place]) Comment: Interpretive Data Percent cell count reference ranges are not reported, since discordance with absolute values may lead to misinterpretation of CBC data. Current Interpretive Data was last revised on 2017. Eosinophil pct 1.0 % [facility] ([place]) Comment: Interpretive Data Percent cell count reference ranges are not reported, since discordance with absolute values may lead to misinterpretation of CBC data. Current Interpretive Data was last revised on 2017. Basophil pct 0.2 % [facility] ([place]) Comment: Interpretive Data Percent cell count reference ranges are not reported, since discordance with absolute values may lead to misinterpretation of CBC data. Current Interpretive Data was last revised on 2017. Blood 03/08/2023 12:3 7 AM CDT 03/08/2023 12:46 AM CDT us Jim Dobson MD LAB BLOOD ORDERABLE S Final Result [facility]EN [facility] ([place]) 1 [facility] [place] [address] * Magnesium (03/08/2023 12:37 AM CDT) Magnesium 1.9 1.4 - 2.5 mg/dL [facility] ([place]) Blood 03/08/2023 12:3 7 AM CDT 03/08/2023 12:46 AM CDT Jim Dobson MD LAB BLOOD ORDERABLE S Final Result Performing Organization Address City/[facility] Co de Phone Number AILEEN R[facility]RIGUE[facility] ([place]) 1 [facility] Department of [employer] [place] [address] * (ABNORMAL) Comprehensive metabolic panel (03/08/2023 12:37 AM CDT) Sodium 139 135 - 145 mmol/L [facility] ([place]) Potassium, pl 3.9 3.3 - 4.9 mmol/L [facility] ([place]) Chloride 97 97 - 110 mmol/L [facility] ([place]) CO2 25 22 - 32 mmol/L [facility] ([place]) Anion gap 17(H) 2 - 15 mmol/L [facility] ([place]) BUN 14 6 - 25 mg/dL [facility] ([place]) Creatinine 0.70 0.60 - 1.10 mg/dL [facility] ([place]) Glucose 128 70 - 199 mg/dL [facility] ([place]) [...] interpretive data was last revised 2022. Calcium 10.2 8.5 - 10.3 mg/dL [facility] ([place]) Bilirubin, total 0.5 0.1 - 1.2 mg/dL [facility] ([place]) Protein, pl 7.4 6.5 - 8.5 g/dL [facility] ([place]) Albumin 4.5 3.5 - 5.0 g/dL [facility] ([place]) Alk phos 79 40 - 130 Units/L [facility] ([place]) ALT 39 7 - 45 Units/L [facility] ([place]) AST 34 10 - 45 Units/L [facility] ([place]) Comment: Hemolysis present. ??Results may be affected. Slightly Hemolyzed Specimen Blood 03/08/2023 12:3 7 AM CDT 03/08/2023 12:46 AM CDT us Jim Dobson MD LAB BLOOD ORDERABLE S Final Result [facility] ([place]) 1 [facility] [place] [address] * (ABNORMAL) CBC with auto differential (03/08/2023 12:37 AM CDT) WBC 8.0 3.8 - 9.9 K/cumm [facility] ([place]) Hgb 14.1 11.9 - 15.5 g/dL [facility] ([place]) Hct 43.1 35.6 - 45.5 % [facility] ([place]) Plt 270 150 - 400 K/cumm [facility] ([place]) MPV 9.6 9.1 - 12.3 fL [facility] ([place]) RBC 4.55 3.90 - 5.20 M/cumm [facility] ([place]) MCV 94.7 81.3 - 96.4 fL [facility] ([place]) MCH 31.0 27.1 - 33.3 pg [facility] ([place]) MCHC 32.7 32.3 - 35.7 g/dL [facility] ([place]) RDW CV 15.5(H) 11.1 - 14.9 % [facility] ([place]) RDW SD 53.9(H) 35.7 - 48.1 fL [facility] ([place]) NRBC abs 0.02(H) 0.00 - 0.01 K/cumm [facility] ([place]) Blood 03/08/2023 12:3 7 AM CDT 03/08/2023 12:46 AM CDT Jim Dobson MD LAB BLOOD ORDERABLE S Final Result Performing Organization Address City/[facility] Co de Phone Number [facility] ([place]) 1 [facility] [place] [address] * ECG 12 lead (03/08/2023 12:31 AM CDT) 03/08/2023 12:3 1 AM CDT Narrative [facility] - 03/08/2023 12:14 PM CDT Vent Rate: 76 bpm RR Interval: 784 msec OK Interval: 143 msec QRS Duration: 98 msec QT Interval: 375 msec QTC Interval: 405 msec P-R-T Merrill: 48 - 26 - 24 degrees SINUS RHYTHM NORMAL ECG Electronically Signed By: Austin Horta Jim Dobson MD ECG ORDERABLES Fin al Result Performing Organization Address [facility] Co de Phone Number [facility] [employer] [facility] documented in this encounter Visit Diagnoses Diagnosis Seizure (HCC)- Primary Other convulsions documented in this encounter Administered Medications Inactive Administered Medications - up to 3 most recent administrations Medication Order MAR Action Action Date Dose Rate Site amLODIPine (NORVASC) tablet 5 mg 5 mg, oral, Once, On 03/08/23 at 0252, For 1 dose Given 03/08/2023 2:58 AM CDT 5 mg levETIRAcetam (KEPPRA) tablet 500 mg 500 mg, oral, Once, On 03/08/23 at 0205, For 1 dose, May mix with 120 mL of enteral nutrition formula or disperse crushed tablets (500 mg tablet strength studied) in 10 mL of water, shake for 5 minutes to dissolve, and administer immediately via enteral feeding tube. Given 03/08/2023 2:25 AM CDT 500 mg metoprolol tartrate (LOPRESSOR) immediate release tablet 50 mg 50 mg, oral, Once, On 03/08/23 at 0252, For 1 dose Given 03/08/2023 2:57 AM CDT 50 mg ondansetron ODT (ZOFRAN-ODT) disintegrating tablet 4 mg 4 mg, oral, Once, On 03/08/23 at 0252, For 1 dose Given 03/08/2023 3:00 AM CDT 4 mg ondansetron ODT (ZOFRAN-ODT) disintegrating tablet 8 mg 8 mg, oral, Once as needed, nausea, vomiting, Starting on 03/07/23 at 2051, For 1 dose, Indications: Nausea, VomitingIndications:Nausea,Vomitin g Given 03/08/2023 1:16 AM CDT 8 mg documented in this encounter Active and Recently Administered Medications Times are shown in CDT. Scheduled Medication Order 03/06/2023 03/07/2023 03/08/2023 amLODIPine (NORVASC) tablet 5 mg (COMPLETED) 5 mg, oral, Once, On 03/08/23 at 0252, For 1 dose 0258 (Given - Provid er: Keenan Ro RN) levETIRAcetam (KEPPRA) tablet 500 mg (COMPLETED) 500 mg, oral, Once, On 03/08/23 at 0205, For 1 dose, May mix with 120 mL of enteral nutrition formula or disperse crushed tablets (500 mg tablet strength studied) in 10 mL of water, shake for 5 minutes to dissolve, and administer immediately via enteral feeding tube. 0225 (Given - Provid er: Shellie Dash RN) metoprolol tartrate (LOPRESSOR) immediate release tablet 50 mg (COMPLETED) 50 mg, oral, Once, On 03/08/23 at 0252, For 1 dose 0257 (Given - Provid er: Keenan Ro RN) ondansetron ODT (ZOFRAN-ODT) disintegrating tablet 4 mg (COMPLETED) 4 mg, oral, Once, On 03/08/23 at 0252, For 1 dose 0300 (Given - Provid er: Keenan Ro RN) PRN Medication Order 03/06/2023 03/07/2023 03/08/2023 ondansetron ODT (ZOFRAN-ODT) disintegrating tablet 8 mg (COMPLETED) 8 mg, oral, Once as needed, nausea, vomiting, Starting on Fri03/07/23 at 2051, For 1 dose, Indications: Nausea, Vomiting 0116 (Given - Provid er: Keenan Ro RN) documented in this encounter Care Teams Orthopedic Physician Assistant Relationship Specialty Start Date End Date Servando Torre MD [facility] [address] PCP - General Family Medicine 06/19/22 Mariela Denton MD [facility] [address] [place] [address] Referring Physician Gastroenterology 06/19/22 Lexis Barroso OD [address] [place] [id number] Automobile Appraiser 09/19/22 documented as of this encounter
--- OUTSIDE RECORDS SUMMARY | 2024-07-12 19:45 | XMS_ITS | Encounter Summary ---
Author Organization [facility] Address [address] [place] [address] Care Team Providers Care Tank Riveter Name Role Phone Seravndo Torre MD Primary Care Provider [phone]- [phone] Mariela Denton MD Unavailable [phone] [phone] Lexis Barroso OD Unavailable [phone]- [phone] Reason for Referral * MRI/CAT/PET Scan (Routine) - Closed Specialty Diagnoses / Procedures Referred By Contac t Referred To Contact Radiology Diagnoses Liver nodule Procedures CT Abdomen Pelvis W Contrast Marixa San NP [address] [facility] [address] [place] [address] Phone: tel: fax: [address] [phone] Referral ID Status Reason Start Date Expiration Date Visits Re quested Visits Authorized [id number] Closed 02/24/2023 2024 1 1 Encounter Details Date Type Department Care Team (Late st Contact Info) Description 02/24/2023 Orders Only [facility] Primary Care at [address] [id number] Marixa San NP [address] 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 RB: RB Report ID: [id number] Reading Location: [id number] Marixa San NP IMG CT PROCEDURES Final Result documented in this encounter Visit Diagnoses Diagnosis Liver nodule- Primary Other specified disorders of liver Liver nodule Other specified disorders of liver documented in this encounter Care Teams Tank Riveter Relationship Specialty Start Date End Date Servando Torre MD [address] [facility] [address] [place] [address] PCP - General Family Medicine 06/19/22 Mariela Denton MD [address] [facility] [address] [place] [address] Referring Physician Gastroenterology 06/19/22 Lexis Barroso OD [address] [place] [id number] Motor Vehicle Or Caravan Salesperson 09/19/22 documented as of this encounter
--- OUTSIDE RECORDS SUMMARY | 2024-07-12 19:45 | XMS_ITS | Encounter Summary ---
Author Organization [facility] Medical Group Address [address] [facility] [address] [place] [address] Care Team Providers Care Business Liaison Officer Name Role Phone Servando Torre MD Primary Care Provider +1- [phone] Mariela Denton MD Unavailable +1 -[phone] Lexis Barroso OD Unavailable +1- [phone] Reason for Visit * Reason Onset Date Comments Medical Question/Miscellaneous 02/04/2023 Encounter Details Date Type Department Care Team (Late st Contact Info) Description 02/04/2023 Telephone [facility] Medical [facility] Primary Care at [address] [address] Servando Torre MD [address] [place] [address] [address] [place] [address] Medical Question/Miscellaneous Social History Tobacco [...] on file 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 She wants to get this resolved before the office closes. Warm transferredback line. Caller???s Call back #: [phone] Does message need to be routed? No * Telephone Encounter - Rhonda Olivas - 02/04/2023 4:39 PM CDT Call Back Caller???s Concern: Patient's daughter called back after speaking with nurse triage, had additionalquestions regarding getting help from insurance case management team. Warm Transferred to Triage back door at the advice of Lead. Caller???s Call back #: [phone] Does message need to be routed? No documented in this encounter Plan of Treatment Not on file documented as of this encounter Visit Diagnoses Not on filedocumented in this encounter Care Teams Business Liaison Officer Relationship Specialty Start Date End Date Servando Torre MD [address] [address] PCP - General Family Medicine 06/19/22 Mariela Denton MD [address] [place] [address] Referring Physician Gastroenterology 06/19/22 Lexis Barroso OD [address] [place] [address] Venetian Blind Cleaner 09/19/22 documented as of this encounter
--- OUTSIDE RECORDS SUMMARY | 2024-07-12 19:45 | XMS_ITS | Encounter Summary ---
Author Organization [facility] Medical Group Address [address] [facility] [address] [place] [address] Care Team Providers Care Start Up Specialist Name Role Phone Servando Torre MD Primary Care Provider +1- [phone] Mariela Denton MD Unavailable +1 -[phone] Lexis Barroso OD Unavailable +1- [phone] Encounter Details Date Type Department Care Team (Late st Contact Info) Description 12/29/2022 Patient Message [facility] Medical [facility] Primary Care at [address] [address] Servando Torre MD [address] [place] [address] [address] [place] [address] Television Agent Social History Tobacco Use Types Packs/Day Years [...] on file 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 Gender Identity Female 04/05/2022 6:17 PM CDT Sexual Orientation Straight 04/05/2022 6: 17 PM CDT documented as of this encounter Plan of Treatment Not on file documented as of this encounter Visit Diagnoses Diagnosis 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
--- OUTSIDE RECORDS SUMMARY | 2024-07-12 19:45 | XMS_ITS | Encounter Summary ---
Author Organization [facility] Healthcare Address [address] [place] [address] Care Team Providers Care Station Baggage Porter Name Role Phone Servando Torre MD Primary Care Provider [phone] Mariela Denton MD Unavailable [phone] -[phone] Lexis Barroso OD Unavailable +1- [phone] Reason for Referral * Neurology (Routine) - Closed Specialty Diagnoses / Procedures Referred By Angel braswell Referred To Contact Diagnoses Seizure (HCC) Procedures EEG Adria Burleson MD [address] [place] [address] Phone: tel: fax: [address] [address] Referral ID Status Reason Start Date Expiration Date Visits Re quested Visits Authorized [id number] Closed 02/27/2023 03/28/2024 1 1 Reason for Visit * Neurology (Routine) - Closed Specialty Diagnoses / Procedures Referred By Contclemencia braswell Referred To Contact Diagnoses Seizure (HCC) Procedures EEG Adria Burleson MD [address] [place] [address] Phone: tel: fax: [facility] 1 [place] [address] Referral ID Status Reason Start Date Expiration Date Visits Re quested Visits Authorized [id number] Closed 02/27/2023 03/28/2024 1 1 Encounter Details Date Type Department Care Team (Latest Contact Info) Description 03/07/2023 1:49 PM CDT - 03/07/2023 11:59 PM CDT Hospital Encounter [facility] EEG [facility] [address] [place] [address] Ellie Sun Seizure (HCC) Discharge Disposition: Discharge to home [...] on file 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 Gender Identity Female 04/05/2022 6:17 PM CDT [...] Procedure Name Priority Date/Time Associated Diagnosis Comments EEG Routine 03/07/2023 5:19 PM CDT Seizure (HCC) documented in this encounter Results * EEG (03/07/2023 5:19 PM CDT) Anatomical Region Laterality Modality EEG Narrative 03/07/2023 5:19 PM CDT Extended EEG Report Patient Name: Lisa Allen [facility] Record Number (MRN): [id number] [facility] Record: [id number] Date of (): 1945 EEG Date: 03/07/2023 Ordering Provider: Adria Burleson MD CC: Servando Torre Start Time: 03/07/2023 3:12:54 PM ? End Time: 03/07/2023 4:13:22 PM Introduction: Ms. Allen is a 77 y.o. female with a history of one lifetime seizure (unclear whether physiological vs epileptic) in the setting of high [place] (trip to [place]) who is presenting to epilepsy clinic for seizure evaluation and management. EEG was performed to evaluate for seizures. This is a 32 channel EEG recording acquired on a Oodle EEG-1200 acquisition system. Scalp electrodes were placed according to the international 10-20 System. The analog EEG was filtered from 1-70 Hz and digitally sampled at 200 Hz. The record was then reformatted for review in bipolar and referential montages. EEG Description: The awake background included a 10 Hz posterior rhythm which attenuated with eye opening and activity. During drowsiness, identified by ocular signs and alpha attenuation, there was intermittent, diffuse, asynchronous theta activity admixed with 2-4 Hz polymorphic frontotemporal delta activity intermittently more prominent over the right temporal region. As the record progressed, stage II sleep was identified by vertex waves, sleep spindles and K-complexes. Hyperventilation was not performed. Photic strobe stimulation elicited no abnormalities. There were occasional poorly formed right frontotemporal sharp waves. Interpretation: This is an abnormal awake and stage I and II sleep extended EEG due to 1) occasional, right frontotemporal, poorly formed epileptiform discharges and 2) intermittent right temporal slowing. Focal epileptiform discharges are typically seen in patients with a history of focal seizures. Focal slowing indicates focal cerebral dysfunction. A focal structural or physiological abnormality should be considered. By signing this report, the attending Electroencephalographer certifies that he/she personally reviewed the electrodiagnostics study and has edited this report to fully conform with his/her intent. Signing Attending: Karl Turner MD PhD us Adria Diop MD NEUROLOGY OR DERABLES Final Result documented in this encounter Visit Diagnoses Diagnosis Seizure (HCC) Other convulsions documented in this encounter Care Teams Station Baggage Porter Relationship Specialty Start Date End Date Servando Torre MD [address] [facility] 130 [place] [address] PCP - General Family Medicine 06/19/22 Mariela Denton MD [facility] [address] [place] [address] Referring Physician Gastroenterology 06/19/22 Lexis Barroso OD [address] [place] [address] Regional Medical Director 09/19/22 documented as of this encounter
--- OUTSIDE RECORDS SUMMARY | 2024-07-12 19:45 | XMS_ITS | Encounter Summary ---
Author Organization [facility] Medical Group Address [address] [facility] [address] [place] [address] Care Team Providers Care Car Blocker Name Role Phone Servando Torre MD Primary Care Provider [phone]- [phone] Mariela Denton MD Unavailable [phone] -[phone] Lexis Barroso OD Unavailable +1- [phone] Reason for Visit * Reason Onset Date Comments Medical Question/Miscellaneous 02/07/2023 Encounter Details Date Type Department Care Team (Late st Contact Info) Description 02/07/2023 Telephone [facility] Medical 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 Needing RA resting o2, RA walking O2/ 2liters resting O2, 2 liters walking O2. The order was not correct so Im making a new order and Bianka is calling patient tosee if she can wait until Friday since she has to portable concentrator. Marixa has been informed and made an addendum to the chart and new notes have been faxed to [facility] * Telephone Encounter - Maria C Frost MA - 02/07/2023 2:33 PM CDT Medical Question/Miscellaneous Caller???s Concern: Bianka, from [facility], called to speak with Dr. Torre's care team regarding the oxygen order. She is needing to speak with a nurse before the end of the day. Caller???s Call back #: [phone] Does message need to be routed? Yes-Action Needed documented in this encounter Plan of Treatment Not on file documented as of this encounter Visit Diagnoses Not on filedocumented in this encounter Care Teams Car Blocker Relationship Specialty Start Date End Date Servando Torre MD [address] [facility] 130 [place] [address] PCP - General Family Medicine 06/19/22 Mariela Denton MD [address] [place] [address] Referring Physician Gastroenterology 06/19/22 Lexis Barroso OD [address] [place] [address] Cooler Service Supervisor 09/19/22 documented as of this encounter
--- OUTSIDE RECORDS SUMMARY | 2024-07-12 19:45 | XMS_ITS | Encounter Summary ---
Author Organization [facility] Medical Group Address [address] [facility] [address] [place] [address] Care Team Providers Care Nurse Leader Name Role Phone Servando Torre MD Primary Care Provider [phone]- [phone] Mariela Denton MD Unavailable +1 -[phone] Lexis Barroso OD Unavailable +1- [phone] Encounter Details Date Type Department Care Team (Late st Contact Info) Description 02/04/2023 Telephone [facility] Medical [facility] Primary Care at [place] [address] [place] [address] Servando Torre MD [address] [place] [address] [address] [place] [address] Social History Tobacco Use Types [...] on file 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 Gender Identity Female 04/05/2022 6:17 PM CDT Sexual Orientation Straight 04/05/2022 6: 17 PM CDT documented as of this encounter Plan of Treatment Not on file documented as of this encounter Visit Diagnoses Not on filedocumented in this encounter Care Teams Nurse Leader Relationship Specialty Start Date End Date Servando Torre MD [address] [facility] [address] [place] [address] PCP - General Family Medicine 06/19/22 Mariela Denton MD [address] [place] [address] Referring Physician Gastroenterology 06/19/22 Lexis Barroso OD [address] [place] [address] Residential Specialist 09/19/22 documented as of this encounter
--- OUTSIDE RECORDS SUMMARY | 2024-07-12 19:45 | XMS_ITS | Encounter Summary ---
Author Organization [facility] Medical Group Address [address] [facility] [address] [place] [address] Care Team Providers Care Defect Repairer Glassware Name Role Phone Servando Torre MD Primary Care Provider +1- [phone] Mariela Denton MD Unavailable +1 -[phone] Lexis Barroso OD Unavailable +1- [phone] Encounter Details Date Type Department Care Team (Late st Contact Info) Description 02/21/[address] 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 Gender Identity Female 04/05/2022 6:17 PM CDT Sexual Orientation Straight 04/05/2022 6: 17 PM CDT documented as of this encounter Plan of Treatment Not on file documented as of this encounter Procedures Procedure Name Priority Date/Time Associated Diagnosis Comments US LIVER Schedule Routine, Read Routine (OP Routine) 02/20/2023 Liver nodule documented in this encounter Results * US Liver (02/20/2023) Anatomical Region Laterality Modality Abdomen N/A Ultrasound us Marixa San EYEGLASS LENS CUTTER IMG US PROCEDURES Final Result documented in this encounter Visit Diagnoses Diagnosis Liver nodule Other specified disorders of liver documented in this encounter Care Teams Defect Repairer Glassware Relationship Specialty Start Date End Date Servando Torre MD 2[address] [facility] 130 [place] [address] PCP - General Family Medicine 06/19/22 Mariela Denton MD [address] [facility] 8[address] [place] [address] Referring Physician Gastroenterology 06/19/22 Lexis Barroso OD [address] [place] [address] Neurology Physician Assistant 09/19/22 documented as of this encounter
--- OUTSIDE RECORDS SUMMARY | 2024-07-12 19:45 | XMS_ITS | Encounter Summary ---
Author Organization [facility] Address [address] [place] [address] Phone Care Team Providers Care Ice Carver Name Role Phone Servando Torre MD Primary Care Provider [phone] Mariela Denton MD Unavailable +1 -[phone] Lexis Barroso OD Unavailable +1- [phone] Reason for Visit * Reason Comments Osteopenia * Diagnostic Imaging (Routine) - Closed Specialty Diagnoses / Procedures Referred By Angel braswell Referred To Contact Diagnoses Screening for osteoporosis Asymptomatic menopausal state Procedures Dexa Axial Skeleton Bone Density 1 or 2 Site Servando Torre MD [address] [facility] [address] [place] [address] Phone: tel: fax: External Order Referral ID Status Reason Start Date Expiration Date Visits Re quested Visits Authorized [id number] Closed 09/19/2022 10/19/2023 1 1 Encounter Details Date Type Department Care Team (Latest Contact Info) Description 12/12/2022 2:30 PM CDT Clinical Support [place] [id number] [facility] 5th [place] [address] [place] [address] Postmenopausal (Primary Dx); Screening for osteoporosis; Asymptomatic menopausal state; Osteopenia of multiple sites Social History Tobacco Use Types Packs/Day Years [...] points, staff should administer the PHQ-9) 0 09/19/2022 Comments No Sex and Gender Information Value Date Recorded Sex Assigned at Not on file 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 Gender Identity Female 04/05/2022 6:17 PM CDT Sexual Orientation Straight 04/05/2022 6: 17 PM CDT documented as of this encounter Plan of Treatment Not on file documented as of this encounter Procedures Procedure Name Priority Date/Time Associated Diagnosis Comments DEXA AXIAL SKELETON BONE DENSITY 1 OR MORE SITES Schedule Routine, Read Routine (OP Routine) 12/12/2022 2:33 PM CDT Screening for osteoporosis Asymptomatic menopausal state documented in this encounter Results * Dexa Axial Skeleton Bone Density 1 or 2 Site (12/12/2022 2:33 PM CDT) Anatomical Region Laterality Modality Body N/A Radiographic Keyanna ging Narrative 12/12/2022 3:00 PM CDT Patient Name: Lisa Allen Date of : 1945 Date of scan: 12/12/2022 Bone mineral density was performed on a [employer] Discovery Densitometer. ?? Based on machine cross-calibration [...] and scan interpretation were performed by Josep Mathwe MD ??who is certified by the International Society of Clinical Densitometry. [id number] us Servando Torre MD IMG DXA PROCEDURES Final Re sult documented in this encounter Visit Diagnoses Diagnosis Postmenopausal- Primary Asymptomatic postmenopausal status (age-related) (natural) Screening for osteoporosis Special screening for osteoporosis Asymptomatic menopausal state Osteopenia of multiple sites documented in this encounter Care Teams Ice Carver Relationship Specialty Start Date End Date Servando Torre MD [address] [facility] [address] [place] [address] PCP - General Family Medicine 06/19/22 Mariela Denton MD [address] [place] [address] Referring Physician Gastroenterology 06/19/22 Lexis Barroso OD [address] [place] [address] Convex Grinder Operator 09/19/22 documented as of this encounter
--- OUTSIDE RECORDS SUMMARY | 2024-07-12 19:45 | XMS_ITS | Encounter Summary ---
Author Organization [facility] Medical Group Address [address] [facility] [address] [place] [address] Care Team Providers Care Mine Foreman Name Role Phone Servando Torre MD Primary Care Provider +1- [phone] Mariela Denton MD Unavailable +1 -[phone] Lexis Barroso OD Unavailable +1- [phone] Reason for Visit * Reason Onset Date Comments Additional Services Or Orders 02/20/2023 Encounter Details Date Type Department Care Team (Late st Contact Info) Description 02/20/2023 Telephone [facility] Medical [facility] Primary Care at [address] [address] Servando Torre MD [address] [place] [address] [address] [place] [address] Additional Services Or Orders Social [...] on file 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 Fax confirmation was successful * Telephone Encounter - Vanessa Simons - 02/20/2023 11:51 AM CDT Call Back Caller???s Concern: Caller still did not receive order and was told to call back in 15 minutes since it was urgent and patient is waiting. Was able to warm transfer to backline successfully. Caller???s Call back #: n/a Does message need to be routed? No * Telephone Encounter - Clementine Vega - 02/20/2023 11:32 AM CDT Medical Question/Miscellaneous Caller???s Concern: Anna Marie calling in regards to patient's order for Ultrasound on Liver dated 02/07/23. Anna Marie stated patient is currently at [facility] for ultrasound and no order was received. Per standard work attempted to warm transfer 3x with no answer, sending High Priority mes yanet. Anna Marie is requesting urgent reply. Anna Marie requesting to please fax Ultrasound on Liver order dated 02/07/23 to [phone] Caller???s Call back #: [phone] Does message need to be routed? Yes-Action Needed documented in this encounter Plan of Treatment Not on file documented as of this encounter Visit Diagnoses Not on filedocumented in this encounter Care Teams Mine Foreman Relationship Specialty Start Date End Date Servando Torre MD [address] [address] PCP - General Family Medicine 06/19/22 Mariela Denton MD [facility] [address] [place] [address] Referring Physician Gastroenterology 06/19/22 Lexis Barroso OD [address] [place] [address] Hot Tamale Man 09/19/22 documented as of this encounter
--- OUTSIDE RECORDS SUMMARY | 2024-07-12 19:45 | XMS_ITS | Encounter Summary ---
Author Organization [facility] Medical Group Address [address] [facility] [address] [place] [address] Care Team Providers Care Carpentry Professional Name Role Phone Servando Torre MD Primary Care Provider +1- [phone] Mariela Denton MD Unavailable +1 -[phone] Lexis Barroso OD Unavailable +1- [phone] Reason for Visit * Reason Onset Date Comments Medical Question/Miscellaneous 03/10/2023 Medical Records Request 03/10/2023 Encounter Details Date Type Department Care Team (Late st Contact Info) Description 03/10/2023 Telephone [facility] Medical Group Primary Care at [address] [address] Servando Torre MD [address] [place] [address] [address] [place] [address] Medical Question/Miscellaneous ; Medical Records Request Social History Tobacco Use [...] file 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 * Telephone Encounter - Samantha Duff - 03/11/2023 1:29 PM CDT Medical Records Request Request Type: Records Request Practice Will Complete What records are being requested: most office notes Who will the records be sent to (if being sent to another doctor, list the doctor's name and specialty)? [facility] Date Needed: as soon as possible Delivery Method: Fax Fax number to use for return of records: [phone] Caller???s Callback #: [phone] Additional Comments/Concerns: n/a Does the message need to be routed? Yes-Action Needed * Telephone Encounter - Regina Toscano MA - 03/11/2023 10:12 AM CDT [facility] * Telephone Encounter - Dennis Dodge - 03/10/2023 4:15 PM CDT Medical Question/Miscellaneous Caller???s Concern: Avani with [facility] received demographic page and referral. There are no discipline orders such as nursing or therapy or visit note for the patient. Please fax. Caller???s Call back #: [phone] Does message need to be routed? Yes-Action Needed documented in this encounter Plan of Treatment Not on file documented as of this encounter Visit Diagnoses Not on filedocumented in this encounter Care Teams Carpentry Professional Relationship Specialty Start Date End Date Servando Torre MD [facility] [address] PCP - General Family Medicine 06/19/22 Mariela Denton MD [address] [place] [address] Referring Physician Gastroenterology 06/19/22 Lexis Barroso OD [address] [place] [address] Patient Carrier 09/19/22 documented as of this encounter
--- OUTSIDE RECORDS SUMMARY | 2024-07-12 19:45 | XMS_ITS | Encounter Summary ---
Author Organization [facility] Address [address] [place] [address] Care Team Providers Care Leather Coverer Name Role Phone Servando Torre MD Primary Care Provider Mariela Denton MD Unavailable [phone] Lexis Barroso OD Unavailable [phone] Encounter Details Date Type Department Care Team (Latest Contact Info) Description 02/17/2023 5:44 PM CDT - 02/17/2023 11:59 PM CDT Hospital Encounter [facility] [address] [place] [address] Discharge Disposition: Discharge to home or self [...] on file 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 ??There will be no report generated by a [facility] Radiologist. Narrative RAD_PACS_[facility] - 02/17/2023 5:44 PM CDT EXAMINATION: ??Images For Reference Purposes Only us Karl Turner MD PhD IMG XR PROCEDURES Final Re sult RAD_PACS_[facility] documented in this encounter Visit Diagnoses Not on filedocumented in this encounter Care Teams Leather Coverer Relationship Specialty Start Date End Date Servando Torre MD [facility] [facility] [address] [place] [address] PCP - General Family Medicine 06/19/22 Mariela Denton MD [facility] [address] [place] [address] Referring Physician Gastroenterology 06/19/22 Lexis Barroso OD [address] [place] [address] Clinical Team Manager 09/19/22 documented as of this encounter
--- OUTSIDE RECORDS SUMMARY | 2024-07-12 19:45 | XMS_ITS | Encounter Summary ---
Author Organization [facility] Address [address] [place] [address] Phone Care Team Providers Care Library Sales Consultant Name Role Phone Servando Torre MD Primary Care Provider [phone] Mariela Denton MD Unavailable [phone] Lexis Barroso OD Unavailable [phone] Encounter Details Date Type Department Care Team (Late st Contact Info) Description 02/17/2023 Telephone [facility] General Neurology [address] [facility] 6[address] [place] [address] [place] [address] Eileen Clement, RN Social History Tobacco Use Types Packs/Day [...] on file Legal 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 Gender Identity Female 04/05/2022 6:17 PM CDT Sexual Orientation Straight 04/05/2022 6: 17 PM CDT documented as of this encounter Miscellaneous Notes * Telephone Encounter - Eileen Clement RN - 02/17/2023 1:49 PM CDT Fyi Transferred to new pt coordinator line documented in this encounter Plan of Treatment Not on file documented as of this encounter Visit Diagnoses Not on filedocumented in this encounter Care Teams Library Sales Consultant Relationship Specialty Start Date End Date Servando Torre MD [facility] [address] [address] PCP - General Family Medicine 06/19/[address] [facility] [address] [place] [address] Referring Physician Gastroenterology 06/19/22 Lexis Barroso OD [address] [place] [address] Outdoor Fitness Trainer 09/19/22 documented as of this encounter
--- OUTSIDE RECORDS SUMMARY | 2024-07-12 19:45 | XMS_ITS | Encounter Summary ---
Author Organization [facility] Address [address] [facility] [address] [place] [address] Care Team Providers Care Senior Packaging Engineer Name Role Phone Servando Torre MD Primary Care Provider [phone] Mariela Denton MD Unavailable [phone] Lexis Barroso OD Unavailable [phone]- [phone] Encounter Details Date Type Department Care Team (Late st Contact Info) Description 02/12/2023 Orders Only [facility] [place] [address] [place] [address] Marixa San NP [address] [facility] [address] [place] [address] Memory changes (Primary Dx) Social History Tobacco Use Types [...] on file 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 Gender Identity Female 04/05/2022 6:17 PM CDT Sexual Orientation Straight 04/05/2022 6: 17 PM CDT documented as of this encounter Miscellaneous Notes * Addendum Note - Mari Thomas CLT - 02/12/2023 8:24 AM CDTAddended by: MARI THOMAS on: 03/21/2023 03:18 PM Modules accepted: Orders documented in this encounter Plan of Treatment Not on file documented as of this encounter Visit Diagnoses Diagnosis Memory changes- Primary documented in this encounter Care Teams Senior Packaging Engineer Relationship Specialty Start Date End Date Servando Torre MD [address] [place] [address] PCP - General Family Medicine 06/19/22 Mariela Denton MD [address] [place] [address] Referring Physician Gastroenterology 06/19/22 Lexis Barroso OD [address] [place] [address] Safety Belt Installer 09/19/22 documented as of this encounter
--- OUTSIDE RECORDS SUMMARY | 2024-07-12 19:45 | XMS_ITS | Encounter Summary ---
Author Organization [facility] Address [address] [place] [address] Phone Care Team Providers Care Element Winding Machine Tender Name Role Phone Servando Torre MD Primary Care Provider [phone] Mariela Denton MD Unavailable [phone] Lexis Barroso OD Unavailable [phone]- [phone] Reason for Referral * Consultation (Routine) - Closed Specialty Diagnoses / Procedures Referred By Angel braswell Referred To Contact Neurology Diagnoses Seizure (HCC) Adria Burleson MD [address] [place] [address] Phone: tel: fax: Kimberly Padilla MD [address] [place] [address] Phone: tel: fax:[phone] Referral ID Status Reason Start Date Expiration Date V isits Requested Visits Authorized [id number] Closed Specialty Services Required 03/03/2023 04/01/2024 1 1 Question Answer Please select the performing region: [facility] (All Locations) [[id number]] To provider: KIMBERLY PADILLA [[id number]] # of visits: 1 Reason for Visit * Consultation (Routine) - Closed Specialty Diagnoses / Procedures Referred By Angel t Referred To Contact Neurology Diagnoses Seizure (HCC) Marixa San, [place] [address] [place] [address] Phone: tel: fax: [facility] Epilepsy [address] [facility] [address] [place] [address] [place] [address] Phone: tel: fax: Referral ID Status Reason Start Date Expiration Date V isits Requested Visits Authorized [id number] Closed Specialty Services Required 02/07/2023 03/08/2024 1 1 Encounter Details Date Type Department Care Team (Late st Contact Info) Description 02/24/2023 4:00 PM CDT Office Visit [facility] Epilepsy [address] [facility] [address] [place] [address] [place] [address] Adria Burleson MD [address] [facility] [address] [place] [address] Seizure (HCC) Social History Tobacco Use Types [...] on file Legal Sex Female 9:[address] RECORDER Gender Identity Female 04/05/2022 6:17 PM CDT Sexual Orientation Straight 04/05/2022 6: 17 PM CDT documented as of this encounter Last Filed Vital Signs Vital Sign Reading Time Taken Comments Blood Pressure 169/77 02/24/2023 4:54 PM CDT Pulse 69 02/24/2023 4:54 PM CDT Temperature - - Respiratory Rate - - Oxygen Saturation - - Inhaled Oxygen Concentration - - Weight 70.8 kg (156 lb) 02/24/2023 4:54 PM CDT Height - - Body Mass Index 28.53 02/20/2023 2:12 PM CDT documented in this encounter Progress Notes * Adria Burleson MD - 02/24/2023 4:00 PM CDT Patient Name: RADHA ALLEN Date of (): 1945 Encounter Date: 02/24/2023 PCP: Servando Torre MD Provider: Raj Cedillo MD Chief complaint: seizure HPI 77 yo LH WF with a history of one lifetime seizure (unclear whether physiological vs epileptic) in the setting of high altitude (trip to [place]) who is presenting to epilepsy clinic for seizure evaluation and management. I personally reviewed external/internal notes. Fall while in [place] 01/30/2023 (high altitude) for a family reunion [...] history: Epilepsy Risk Factors: Febrile seizure(s): No APPLICATION CONSULTANT 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 -EEG at [facility] pending Current ASMs: -No (On GBP 100 mg tid for pain) Prior ASMs: -No ----- Physical Exam Vital Signs There were no vitals filed for this visit. General: Calm and cooperative, no acute distress, accompanied by daughter and granddaughter Neuro: Mental status: Alert, oriented to self and place and time, somewhat slow processing during recall. Intact naming/repetition/fluency. No dysarthria. Follows simple and complex commands. Cranial nerves: PERRL, OD (retinal detachment) cannot count fingers (can see lights and shapes) and pupil 1-2 mm nonreactive, EOMI, facial sensation intact to LT, face symmetric, hearing intact to voice, palate symmetric, uvula midline. SCM and traps full strength. Tongue midline. Motor: Strength 5/5 throughout with no drift. Normal tone/bulk. Sensory: Intact to light touch throughout. Coordination: Finger to nose intact. Gait: Normal stride and arm swing. 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 She's not on ASMs; she takes GBP 100 mg tid for pain. OSH MRI showed L splenium of CC chronic hemorrhage/encephalomalacia/gliosis and scattered microhemorrhages and generalized atrophy. No EEGs were done. The nature of her single seizure is unclear, semiology is described in detail under HPI. Recs: -Unclear etiology of her seizure - no diagnosis of epilepsy with current information/data, no ASM indicated -rEEG extended -Referral to memory clinic -Consider ruling out cardiac causes of syncope - defer to PCP -Seizure precautions thoroughly reviewed including NOT driving for at least 6 months after last seizure All questions answered. RTC in 2 months. Adria Anthony Seizure precautions including no driving for at least 6 months after last seizure, heights, swimming or bathing alone, operating heavy machinery or other activities during which a seizure would endanger her or others were discussed. My total encounter time on 02/24/2023 was 75 minutes which was spent in the activities documented inthe note. This includes time spent prior to the visit and after the visit in direct care of the patient. This time does not include time spent in any separately reportable services. documented in this encounter Plan of Treatment Scheduled Referrals Name Type Priority Associated Diagnoses Order Schedule Ambulatory referral to Neurology Outpatient Referral Routine Seizure (HCC) Expected: 03/17/2023 (Approximate), Expires: 03/03/2024 documented as of this encounter Visit Diagnoses Diagnosis Seizure (HCC) Other convulsions documented in this encounter Orders Outpatient Referral Count Last Ordered Date Fir st Ordered Date AMB REFERRAL TO NEUROLOGY 1 02/24/2023 documented in this encounter Care Teams Element Winding Machine Tender Relationship Specialty Start Date End Date Servando Torre MD [address] [facility] [address] [place] [address] PCP - General Family Medicine 06/19/22 Mariela Denton MD [address] [place] [address] Referring Physician Gastroenterology 06/19/22 Lexis Barroso OD [address] [place] [address] Automatic Glove Turner And Former 09/19/22 documented as of this encounter
--- OUTSIDE RECORDS SUMMARY | 2024-07-12 19:45 | XMS_ITS | Encounter Summary ---
Author Organization [facility] Address [address] [place] [address] Care Team Providers Care Salvage Winder And Inspector Name Role Phone Servando Torre MD Primary Care Provider [phone] Mariela Denton MD Unavailable [phone] Lexis Barroso OD Unavailable [phone] Reason for Referral * Consultation (Routine) - Closed Specialty Diagnoses / Procedures Referred By Angel braswell Referred To Contact Neurology Diagnoses Seizure (HCC) Marixa San NP [address] [facility] [address] [place] [address] Phone: tel: fax: [facility] Epilepsy [address] 6th [place] [address] [place] [address] Phone: tel: fax: Referral ID Status Reason Start Date Expiration Date V isits Requested Visits Authorized [id number] Closed Specialty Services Required 02/07/2023 03/08/2024 1 1 Question Answer Please select the performing region: [facility] [[id number]] Please select the performing department: [facility] [[id number]] # of visits: 1 * Diagnostic Imaging (Routine) - Closed Specialty Diagnoses / Procedures Referred By Angel braswell Referred To Contact Diagnoses Liver nodule Procedures US Liver Marixa San NP [address] [place] [address] [address] [place] [address] Phone: tel: fax: External Order Referral ID Status Reason Start Date Expiration Date Visits Re quested Visits Authorized [id number] Closed 02/07/2023 03/08/2024 1 1 Reason for Visit * Reason Comments CHRISTELLE Discharged on 02/02 [facility] [place], [place] for possible seizure due to lack of oxygen. 8 broken ribs. Due to CPR. oxygen Walking needs increa sed on oxygen. First thing in the morning when in pain oxygen is increased as well. 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 Gender Identity Female 04/05/2022 6:17 PM CDT Sexual Orientation Straight 04/05/2022 6: 17 PM CDT documented as of this encounter Last Filed Vital Signs Vital Sign Reading Time Taken Comments Blood Pressure 144/76 02/07/2023 9:22 AM CDT Pulse 60 02/07/2023 9:23 AM CDT Temperature - - Respiratory Rate 18 02/07/2023 9:22 AM CDT Oxygen Saturation 97% 02/07/2023 9:23 AM CDT Inhaled Oxygen Concentration - - Weight 73.2 kg (161 lb 6.4 oz) 02/07/2023 9:22 A M CDT Height 157.5 cm (5' 2 ) 02/07/2023 9:22 AM CDT Body Mass Index 29.52 02/07/2023 9:22 AM CDT documented in this encounter Patient Instructions * Patient Instructions* Marixa San NP - 02/07/2023 9:00 AM CDT Labs ordered Stopping Robaxin, starting Tizanidine Neurology referral placed--working on getting this as soon as we can Portable O2 concentrator being worked on US Liver ordered documented in this encounter Ordered Prescriptions Prescription Sig Dispense Quantity Refills Last Filled Start Date End Date tiZANidine (ZANAFLEX) 2 mg tablet Take 1 tablet (2 mg total) by mouth every 6 (six) hours as needed for muscle spasms 120 tablet 1 02/07/2023 04/09/2023 pravastatin (PRAVACHOL) 40 mg tablet Take 1 tablet (40 mg total) by mouth daily 90 tablet 1 02/07/2023 08/14/[address] (PROTONIX) 40 mg EC tablet Take 1 tablet (40 mg total) by mouth daily 90 tablet 1 02/07/2023 08/27/2023 documented in this encounter Progress Notes * Marixa San NP - 02/07/2023 9:00 AM CDT Images from the original note were not included. Transition of Care Lisa Allen is seen in the office today for a transition of care visit after a recent hospitalization. An initial phone contact was confirmed for the transition of care within two business days after discharge, and communication regarding aspects of care, education and support with activities of daily living is documented in the chart. I, Marixa San NP have personally reviewed pertinent Hospital/ER data including [employer] and Care Everywhere if available. This patient's discharge medication list has been reviewed and reconciled with her medication list in the office chart and has also been reviewed with patient and/or caregiver. I have noted any changes. Patient was in [place] for a family [place]. While there she had an episode of unresponsiveness, body was twitching, eyes rolled back, and lips turned blue. Family member started CPR. EMS arrived and brought patient to the ER, patient was agitated with altered mental status and itwas c/w postictal state from a possible seizure. Patient was worked up for Stroke also. She sustained multiple fractures, acute nondisplaced anterolateral left fourth and fifth rib fractures are noted. Acute anterior lateral left second, third, fourth, fifth, sixth, and seventh rib fractures. Patient's MRI did not show acute stroke, possible stroke in the past. Incidental finding of liver lesion on chest CT. Admission Date: 01/30/23 Discharge Date: 02/02/23 Date of Initial Post-discharge Interactive Contact: 02/04/23 Complexity of Medical Decision Making: Moderate Metabolic Lab Results: Glucose: Glucose Date Value Ref Range Status 05/30/2022 100 70 - 199 mg/dL Final Comment: Interpretive [...] classification and Diagnosis of Diabetes Diabetes Care 2017;40 (Suppl. 1):S11. Current interpretive data was last revised 2017. Glucose, POC Date Value Ref Range Status 11/29/2022 166 70 - 199 mg/dL Final Comment: Interpretive Data Glucose is assumed to be non-fasting. Fasting Glucose reference ranges are: 0 - 150 years: 70 mg/dL - 99 mg/dL Current interpretive data was last revised on 2014. Lab Results Component Value Date WBC 8.7 10/10/2022 HGB 13.6 10/10/2022 HCT 40.7 10/10/2022 MCV 89.0 10/10/2022 Lab Results Component Value Date GLUCOSE 166 11/29/2022 CALCIUM 10.8 (H) 10/10/2022 SODIUM 141 05/30/2022 POTASSIUM 4.0 05/30/2022 CO2 27 10/10/2022 CHLORIDE 101 05/30/2022 BUNSER 11 05/30/2022 CREATININE 0.75 10/10/2022 Major Procedures and Tests: Major procedures and tests performed during inpatient stay: CT Chest wo Contrast, CTA head/neck, CT Head, CT Cervical and thoracic spine, MRI brain, ECHO Studies Pending at Discharge (Includes lab and radiology) None Interval History: Since being discharged, patient has been using portable oxygen concentrator (1-2 L) prn for mainly exertion and at night when O2 drops. Patient returned from [place] last night. She is supposed to mail back current concentrator tomorrow to [place]. Patient's mental status still not 100% back to baseline but does have some improvement. Pain is controlled but family notices that the Robaxin does make patient more confused and tired. Problem Acute Respiratory Distress Multiple Fractures of Ribs Associated With Chest Compression and Cardiopulmonary Resuscitation Liver Nodule Seizure (Hcc) Last Assessment & Plan: First time event while visiting altitude. Negative stroke alert in ED. No brain lesions seen on imaging. No toxidrome noted. Elevated lactate to 12.4 now downtrending c/w seizure presentation as well as tonguelaceration. MRI brain unremarkable PLAN: -Transferred to inpatient -Neuro checks -Seizure precautions -DC telemetry. No arrhythmias noted. -Recommend outpatient Neurology follow up. Discussed with patient and daughter seizure precautions (no bathing unsupervised, no driving, no ladders, etc) StrokeAlert CT Head without Contrast 1. No CT evidence of acute intracranial hemorrhage or infarction. 2.Senescent findings as described above. Stroke Alert CTA Head Neck No large vessel occlusion, arterial dissection or hemodynamically significant stenosis identified in the head or neck. Current Outpatient Medications on File Prior to Visit Medication Sig Dispense Refill amLODIPine (NORVASC) 5 [...] by the end of 01/2023. 90 tablet 0 calcium citrate-vitamin D3 250 [...] mouth daily with breakfast 90 tablet 1 gabapentin (NEURONTIN) 100 mg capsule Take 1 capsule (100 mg total) by mouth 3 (three) times a day lidocaine (ASPERCREME) 4 % adhesive patch,medicated Apply 1 patch topically nightly 30 patch 1 mesalamine (APRISO) 0.375 gram 24 hr capsule Take 4 capsules (1.5 g total) by mouth daily 120 capsule 11 metFORMIN (GLUCOPHAGE) 850 mg tablet Take 1 tablet (850 mg total) by mouth 2 (two) times a day withmeals 60 tablet 2 metoprolol tartrate (LOPRESSOR) 50 mg immediate [...] To check blood glucose 50 each 11 oxyCODONE (ROXICODONE) 5 mg immediate release tablet TAKE 1 TABLET BY MOUTH EVERY 6 HOURS NEEDEDFOR MODERATE PAIN FOR UP TO 7 DAYS . DO NOT EXCEED 4 PER 24 HOURS Pain Reliever ES,acetaminophn, 500 mg tablet Take 2 tablets (1,000 mg total) by mouth every 8 (eight) hours vedolizumab (ENTYVIO) 300 mg recon soln Infuse 5 mL (300 mg total) into a venous catheter every 8 (eight) weeks [DISCONTINUED] methocarbamoL (ROBAXIN) 500 mg tablet Take 1 tablet (500 mg total) by mouth every 6 (six) hours as needed [DISCONTINUED] pantoprazole DR (PROTONIX) 40 mg EC tablet Take 1 tablet (40 mg total) by mouth daily 90 tablet 1 [DISCONTINUED] pravastatin (PRAVACHOL) 40 mg tablet Take 1 tablet (40 mg total) by mouth daily 90 tablet 1 Lactobacillus acidophilus (PROBIOTIC ORAL) Take by mouth (Patient not taking: Reported on 02/07/2023) Saccharomyces boulardii (FLORASTOR) 250 mg capsule Take by mouth (Patient not taking: Reported on 02/07/2023) [DISCONTINUED] budesonide DR/ER (UCERIS) 9 mg tablet, delayed & ext.release Take 1 tablet (9 mgtotal) by mouth daily 30 tablet 0 [DISCONTINUED] diphenoxylate-atropine (LOMOTIL) 2.5-0.025 mg per tablet Take 1 tablet by mouth 2 (two) times a day (Patient not taking: Reported on 02/07/2023) No current facility-administered medications on file prior to visit. Review of systems: Review of Systems Respiratory: Positive for shortness of breath (with exertion). Cardiovascular: Positive for chest pain (chest wall). Psychiatric/Behavioral: Positive for confusion. Negative for suicidal ideas. BP 144/76 (BP Location: Left arm, Patient Position: Sitting) Pulse 60 Resp 18 Ht 157.5 cm (5'2 ) Wt 73.2 kg (161 lb 6.4 oz) SpO2 97% BMI 29.52 kg/m?? Physical Exam: Physical Exam Constitutional: Appearance: Normal appearance. HENT: Head: Normocephalic. Right Ear: External ear normal. Left Ear: External ear normal. Eyes: Extraocular Movements: Extraocular movements intact. Cardiovascular: Rate and Rhythm: Normal rate and regular rhythm. Pulmonary: Effort: Pulmonary effort is normal. Breath sounds: Normal breath sounds. Chest: Chest wall: Tenderness present. Musculoskeletal: Right lower leg: No edema. Left lower leg: No edema. Skin: General: Skin is warm and dry. Neurological: Mental Status: She is alert. Mental status is at baseline. She is confused. Gait: Gait abnormal (using walker). Psychiatric: Mood and Affect: Mood normal. Behavior: Behavior normal. Assessment/Plan Diagnoses and all orders for this visit: Seizure (HCC) (Primary) Assessment & Plan: No additional concerns for recurrent seizure since discharge. Imaging performed appeared to rule out stroke, however per the MRI it appears she may have had a past CVA. Seizure precautions continue. Will get patient set up with Neurology, referral placed and records to be fast, should be able to see Neuro in 1-2 weeks. Orders: - CBC with auto differential; Future - Comprehensive metabolic panel; Future - Pro B-type natriuretic peptide; Future - Ambulatory referral to Neurology; Future Acute pulmonary edema (CMS/HCC) (HCC) Comments: stable/resolved Rechecking labs Orders: - CBC with auto differential; Future - Comprehensive metabolic panel; Future - Pro B-type natriuretic peptide; Future Multiple fractures of ribs associated with chest compression and cardiopulmonary resuscitation Assessment & Plan: Continue with current regimen for pain, well controlled. However, will switch out the Robaxin and substitute it with Tizanidine as she is noted to get more confused on the Robaxin. Discussed switching out the Oxycodone for Tramadol once finished with the Oxycodone if pain still persisting. Continues incentive spirometer use. Acute respiratory distress Assessment & Plan: Patient still needs portable oxygen concentrator, hoping the need will be less the more accumulatedpatient becomes to being back home. O2 at rest on RA was 97%. O2 at rest on 2L O2 was 97% However, still recommend prn use, especially with exertion. Walking test in office today showed O2 sat of 87% on RA and 97% on 2L. Liver nodule Assessment & Plan: Incidental finding on the CT of chest, will get dedicated liver ultrasound. Orders: - US Liver; Future Other orders - pantoprazole DR (PROTONIX) 40 mg EC tablet; Take 1 tablet (40 mg total) by mouth daily - pravastatin (PRAVACHOL) 40 mg tablet; Take 1 tablet (40 mg total) by mouth daily - tiZANidine (ZANAFLEX) 2 mg tablet; Take 1 tablet (2 mg total) by mouth every 6 (six) hours as needed for muscle spasms BMI Follow-up includes: education provided. Body mass index is 29.52 kg/m??. Coordination of Home care services and follow-up with specialist appointments confirmed. Instructions have been provided to and reviewed with the patient/caregiver prior to discharge. Marixa San NP Cosigned by Servando Torre MD at 02/07/2023 4:44 PM CDT documented in this encounter Miscellaneous Notes * Assessment & Plan Note - Marixa San NP - 02/07/2023 12:36 PM CDTAssociated Problem(s): Acute respiratory distress (Resolved 08/07/2023) Patient still needs portable oxygen concentrator, hoping the need will be less the more accumulatedpatient becomes to being back home. O2 at rest on RA was 97%. O2 at rest on 2L O2 was 97% However, still recommend prn use, especially with exertion. Walking test in office today showed O2 sat of 87% on RA and 97% on 2L. * Assessment & Plan Note - Marixa San NP - 02/07/2023 12:34 PM CDTAssociated Problem(s): Liver nodule Incidental finding on the CT of chest, will get dedicated liver ultrasound. * Assessment & Plan Note - Marixa San NP - 02/07/2023 12:33 PM CDTAssociated Problem(s): Multiple fractures of ribs associated with chest compression and cardiopulmonary resuscitation Continue with current regimen for pain, well controlled. However, will switch out the Robaxin and substitute it with Tizanidine as she is noted to get more confused on the Robaxin. Discussed switching out the Oxycodone for Tramadol once finished with the Oxycodone if pain still persisting. Continues incentive spirometer use. * Assessment & Plan Note - Marixa San NP - 02/07/2023 12:31 PM CDTAssociated Problem(s): Seizure (HCC) No additional concerns for recurrent seizure since discharge. Imaging performed appeared to rule out stroke, however per the MRI it appears she may have had a past CVA. Seizure precautions continue. Will get patient set up with Neurology, referral placed and records to be fast, should be able to see Neuro in 1-2 weeks. documented in this encounter Plan of Treatment Scheduled Referrals Name Type Priority Associated Diagnoses Order Schedule Ambulatory referral to Neurology Outpatient Referral Routine Seizure (HCC) Expected: 02/21/2023 (Approximate), Expires: 02/08/2024 documented as of this encounter Results * US Liver (02/20/2023) Anatomical Region Laterality Modality Abdomen N/A Ultrasound us Marixa San NP IMG US PROCEDURES Final Result * Pro B-type natriuretic peptide (02/07/2023 10:42 [...] et.al. Eur Heart J. 2006:27:330-337. 2. Megan MCKEON, Royce COE. J. AM Karla Cardiol: Cardiovasc Imag. 2009;2: 216- 225. Interpretive Data Last Revised Date: 2018. Blood 02/07/2023 10:4 2 AM CDT 02/07/2023 4:21 PM CDT us Mraixa San NP LAB BLOOD ORDERABLES Final Resul t [facility] [address] Department [place] [address] * (ABNORMAL) Comprehensive metabolic panel [...] CDT 02/07/2023 4:21 PM CDT Marixa San NP LAB BLOOD ORDERABLES Final Resul t [facility] [address] Department [place] [address] * (ABNORMAL) CBC with auto differential (02/07/2023 10:42 AM CDT) Pathologist [facility] WBC 8.2 3.8 - 9.9 K/cumm [facility] Hgb 12.5 11.9 - 15.5 g/dL [facility] Hct 41.3 35.6 - 45.5 % [facility] Plt 350 150 - 400 K/cumm [facility] MPV 9.5 9.1 - 12.3 fL [facility] RBC 4.24 3.90 - 5.20 M/cumm [facility] MCV 97.4(H) 81.3 - 96.4 fL [facility] MCH 29.5 27.1 - 33.3 pg [facility] MCHC 30.3(L) 32.3 - 35.7 g/dL [facility] RDW CV 14.7 11.1 - 14.9 % [facility] RDW SD 51.9(H) 35.7 - 48.1 fL [facility] NRBC abs 0.02(H) 0.00 - 0.01 K/cumm [facility] Blood 02/07/2023 10:4 2 AM CDT 02/07/2023 4:21 PM CDT us Marixa San FINISH PAINTER LAB BLOOD ORDERABLES Final Resul t [facility] [address] Department [place] [address] documented in this encounter Visit Diagnoses Diagnosis Seizure (HCC)- Primary Other convulsions Acute pulmonary edema (CMS/HCC) (HCC) Unspecified acute edema of lung Multiple fractures of ribs associated with chest compression and cardiopulmonary resuscitation Acute respiratory distress Other pulmonary insufficiency, not elsewhere classified Liver nodule Other specified disorders of liver documented in this encounter Discontinued Medications Medication Sig Discontinue Reason Start Date End Da te budesonide DR/ER (UCERIS) 9 mg tablet, delayed & ext.releaseIndications:U lcerative Colitis Take 1 tablet (9 mg total) by mouth daily Therapy completed 05/30/2022 02/07/2023 diphenoxylate-atropine (LOMOTIL) 2.5-0.025 mg per tablet Take 1 tablet by mouth 2 (two) times a day Therapy completed 02/07/2023 methocarbamoL (ROBAXIN) 500 mg tablet Take 1 tablet (500 mg total) by mouth every 6 (six) hours as needed 02/02/2023 02/07/2023 pravastatin (PRAVACHOL) 40 mg tablet Take 1 tablet (40 mg total) by mouth daily Reorder 08/08/2022 02/07/[address] (PROTONIX) 40 mg EC tablet Take 1 tablet (40 mg total) by mouth daily Reorder 08/08/2022 02/07/2023 documented as of this encounter Historical Medications * This list may reflect changes made after this encounter. oxyCODONE (ROXICODONE) 5 mg immediate release tablet 3 methocarbamoL (ROBAXIN) 500 mg tablet Take 1 tablet (500 mg total) by mouth every 6 (six) hours as needed 02/02/2023 3 lidocaine (ASPERCREME) 4 % adhesive patch,medicated Apply 1 patch topically nightly 30 patch 1 02/02/2023 3 gabapentin (NEURONTIN) 100 mg capsule Take 1 capsule (100 mg total) by mouth 3 (three) times a day 3 Pain Reliever ES,acetaminophn, 500 mg tablet Take 2 tablets (1,000 mg total) by mouth every 8 (eight) hours 3 calcium citrate-vitamin D3 250 mg-5 mcg (200 unit) tablet Take 2 tablets by mouth 4 added in this encounter Care Teams Salvage Winder And Inspector Relationship Specialty Start Date End Date Servando Torre MD [facility] [address] PCP - General Family Medicine 06/19/[address] [facility] [address] [place] [address] Referring Physician Gastroenterology 06/19/22 Lexis Barroso OD [address] [place] [id number] Certified Tower Climber 09/19/22 documented as of this encounter
--- OUTSIDE RECORDS SUMMARY | 2024-07-12 19:45 | XMS_ITS | Encounter Summary ---
Author Organization [facility] Healthcare Address [address] [place] [address] Care Team Providers Care Playground Official Name Role Phone Servando Torre MD Primary Care Provider [phone] Mariela Denton MD Unavailable [phone] Lexis Barroso OD Unavailable [phone] Reason for Visit * MRI/CAT/PET Scan (Routine) - Closed Specialty Diagnoses / Procedures Referred By Contac t Referred To Contact Procedures Neuro CT Outside Reference Karl Turner MD PhD [address] [place] [address] Phone: tel: fax: Referral ID Status Reason Start Date Expiration Date Visits Re quested Visits Authorized [id number] Closed 02/17/2023 03/18/2024 1 1 Encounter Details Date Type Department Care Team (Latest Contact Info) Description 02/17/2023 5:44 PM CDT - 02/17/2023 11:59 PM CDT Hospital Encounter [facility] [address] [place] [id number] Discharge Disposition: Discharge to home or [...] on file 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 ??There will be no report generated by a [facility] Radiologist. Narrative [facility] - 02/17/2023 5:44 PM CDT EXAMINATION: ??Images For Reference Purposes Only us Karl Turner MD PhD IMG CT PROCEDURES Final Re sult [facility] documented in this encounter Visit Diagnoses Not on filedocumented in this encounter Care Teams Playground Official Relationship Specialty Start Date End Date Servando Torre MD [address] [facility] [address] [place] [address] PCP - General Family Medicine 06/19/22 Mariela Denton MD [address] [place] [address] Referring Physician Gastroenterology 06/19/22 Lexis Barroso OD [address], [place] [address] Order Desk Caller 09/19/22 documented as of this encounter
--- OUTSIDE RECORDS SUMMARY | 2024-07-12 19:45 | XMS_ITS | Encounter Summary ---
Author Organization [facility] Medical Group Address [address] [facility] [address] [place] [address] Care Team Providers Care General Accounting Manager Name Role Phone Servando Torre MD Primary Care Provider [phone] Mariela Denton MD Unavailable [phone] Lexis Barroso OD Unavailable [phone] Reason for Visit * Reason Onset Date Comments Medical Question/Miscellaneous 02/21/2023 Encounter Details Date Type Department Care Team (Late st Contact Info) Description 02/21/2023 Telephone [facility] Medical [facility] Primary Care at [address] [address] Servando Torre MD [address] [place] [address] [address] [place] [address] Medical Question/Miscellaneous Social History Tobacco [...] on file 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 * Telephone Encounter - Mayra Winters - 02/21/2023 12:16 PM CDT Medical Question/Miscellaneous Caller???s Concern: [facility] calling to inform doctor that due to staffing they are unable to see this patient in 's zip code area Caller???s Call back #: [phone] Does message need to be routed? Yes-FYI Only documented in this encounter Plan of Treatment Not on file documented as of this encounter Visit Diagnoses Diagnosis Balance problem- Primary Abnormality of gait Multiple fractures of ribs associated with chest compression and cardiopulmonary resuscitation documented in this encounter Care Teams General Accounting Manager Relationship Specialty Start Date End Date Servando Torre MD [address] [facility] [address] [place] [address] PCP - General Family Medicine 06/19/22 Mariela Denton MD [address] [place] [address] Referring Physician Gastroenterology 06/19/22 Lexis Barroso OD [address] [place] [id number] Flipping Machine Operator 09/19/22 documented as of this encounter
--- OUTSIDE RECORDS SUMMARY | 2024-07-12 19:45 | XMS_ITS | Encounter Summary ---
Author Organization [facility] Healthcare Address [address] [place] [address] Care Team Providers Care Pathology Secretary Name Role Phone Servando Torre MD Primary Care Provider [phone] Mariela Denton MD Unavailable [phone] Lexis Barroso OD Unavailable [phone] Reason for Visit * MRI/CAT/PET Scan (Routine) - Closed Specialty Diagnoses / Procedures Referred By Contac t Referred To Contact Procedures Neuro CT Outside Reference Karl Turner MD PhD [address] [facility] [address] [place] [address] Phone: tel: fax: Referral ID Status Reason Start Date Expiration Date Visits Re quested Visits Authorized [id number] Closed 02/17/2023 03/18/2024 1 1 Encounter Details Date Type Department Care Team (Latest Contact Info) Description 02/17/2023 5:44 PM CDT - 02/17/2023 11:59 PM CDT Hospital Encounter [facility] [address] [place] [id number] Discharge Disposition: Discharge to home or [...] file 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 ??There will be no report generated by a [facility] Radiologist. Narrative RAD_PACS[facility] - 02/17/2023 5:44 PM CDT EXAMINATION: ??Images For Reference Purposes Only us Karl Turner MD PhD IMG CT PROCEDURES Final Re sult RAD[facility]PACS[facility] documented in this encounter Visit Diagnoses Not on filedocumented in this encounter Care Teams Pathology Secretary Relationship Specialty Start Date End Date Servando Torre MD [address] [facility] [address] [place] [address] PCP - General Family Medicine 06/19/22 Mariela Denton MD [address] [place] [address] Referring Physician Gastroenterology 06/19/22 Lexis Barroso OD [address] [place] [address] Shipping Support 09/19/22 documented as of this encounter
--- OUTSIDE RECORDS SUMMARY | 2024-07-12 19:46 | XMS_ITS | Encounter Summary ---
Author Organization [facility] Address [address] [place] [address] Phone Care Team Providers Care Polisher Hand Name Role Phone Servando Torre MD Primary Care Provider [phone] Mariela Denton MD Unavailable [phone] Lexis Barroso OD Unavailable [phone] Encounter Details Date Type Department Care Team (Late st Contact Info) Description 10/10/2022 11:30 AM CDT Lab [facility] Endocrinology Metabolism and Lipid [address] [facility] [address] [place] [address] [place] [address] Ulcerative colitis with complication, unspecified location (HCC); High risk medications (not anticoagulants) long-term use; Healthcare maintenance Social History Tobacco Use Types Packs/Day Years Used Date Smoking Tobacco: Never Smokeless Tobacco: Never AUDIT-C Answer Date Recorded Q1: How often do you have a drink containing alcohol? Never 06/19/2022 Q2: How many drinks containi ng alcohol do you have on a typical day when you are drinking? Patient does not drink Q3: How often do you have si x or more drinks on one occasion? 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[employer] Gender Identity Female 04/05/2022 6:17 PM CDT Sexual Orientation Straight 04/05/2022 6: 17 PM CDT documented as of this encounter Plan of Treatment Not on file documented as of this encounter Procedures Procedure Name Priority Date/Time Associated Diagnosis Comments CBC WITH AUTO DIFFERENTIAL Routine 10/10/2022 11:14 AM CDT Ulcerative colitis with complication, unspecified location (HCC) High risk medications (not anticoagulants) long-term use Healthcare maintenance HEMOGLOBIN A1C Routine 10/10/2022 11:14 AM CDT Ulcerative colitis with complication, unspecified location (HCC) High risk medications (not anticoagulants) long-term use Healthcare maintenance LIPID PANEL Routine 10/10/2022 11:14 AM CDT Ulcerative colitis with complication, unspecified location (HCC) High risk medications (not anticoagulants) long-term use Healthcare maintenance COMPREHENSIVE METABOLIC PANEL Routine 10/10/2022 11:14 AM CDT Ulcerative colitis with complication, unspecified location (HCC) High risk medications (not anticoagulants) long-term use Healthcare maintenance documented in this encounter Results * CBC with auto differential (10/10/2022 11:14 AM CDT) White Blood Count 8.7 3.6 - 11.2 K/uL [facility] RBC 4.57 3.63 - 4.92 M/uL [facility] Hemoglobin 13.6 11.9 - 15.5 g/dL [facility] Hematocrit 40.7 36.1 - 44.3 % [facility] MCV 89.0 80.0 - 97.6 fL [facility] MCH 29.7 26.7 - 33.7 pg [facility] MCHC 33.3 32.7 - 35.5 g/dL [facility] RBC Dist Width 14.7 12.3 - 17.0 % [facility] Platelet Count 320 140 - 440 K/uL [facility] MPV 7.4 6.8 - 10.4 fL [facility] Neutrophils % 61.2 38.7 - 74.5 % [facility] Lymphocyte % 27.1 20.0 - 54.3 % [facility] Monocytes % 6.6 4.3 - 13.5 % [facility] Eosinophils % 4.6 0.0 - 6.0 % [facility] Basophil % 0.5 0.0 - 3.0 % [facility] Absolute Neutrophil 5.4 1.8 - 6.6 K/uL [facility] Absolute Lymphocyte 2.4 0.8 - 3.3 K/uL [facility] Absolute Monocyte 0.6 0.2 - 1.2 K/uL [facility] Absolute Eosinophil 0.4 0.0 - 0.5 K/uL [facility] Absolute Basophil 0.0 0.0 - 0.2 K/uL [facility] Nucleated RBC % 0.1 0.0 - 0.4 /100 WBC [facility] Blood 10/10/2022 11:1 4 AM CDT 10/10/2022 12:04 PM CDT us Mariela Denton MD LAB BLOOD ORDERABLE S Final Result [facility] * (ABNORMAL) Comprehensive metabolic panel (10/10/2022 11:14 AM CDT) Total Protein 6.9 6.1 - 8.4 g/dL [facility] Albumin 4.1 3.5 - 5.2 g/dL [facility] Calcium 10.8(H) 8.6 - 10.3 mg/dL [facility] BUN 14 7 - 23 mg/dL [facility] Total Bilirubin 0.31 0.20 - 1.40 mg/dL [facility] Alk Phos, Total 79 35 - 129 IU/L [facility] AST (SGOT) 18 11 - 47 IU/L [facility] ALT (SGPT) 14 6 - 53 IU/L [facility] Creatinine 0.75 0.60 - 1.10 mg/dL [facility] Sodium 141 135 - 145 mmol/L [facility] Potassium 4.2 3.3 - 5.1 mmol/L [facility] Chloride 101 95 - 107 mmol/L [facility] CO2 Content 27 21 - 29 mmol/L [facility] Glucose 111(H) 64 - 99 mg/dL [facility] Comment: NONFASTING GLUCOSE RANGE = 64-199 mg/dL FASTING GLUCOSE 64 - 99 = NORMAL FASTING GLUCOSE 100 - 125 = IMPAIRED FASTING GLUCOSE FASTING GLUCOSE >=126 = PROVISIONAL DIAGNOSIS OF DIABETES eGFR 80.9 >60.0 mL/min/1.7 3 m2 [facility] Blood 10/10/2022 11:1 4 AM CDT 10/10/2022 12:04 PM CDT us Mariela Denton MD LAB BLOOD ORDERABLE S Final Result [facility] * (ABNORMAL) Lipid panel (10/10/2022 11:14 AM CDT) Triglycerides 173(H) <150 mg/dL [facility] Comment: Desirable: <150 mg/dL, fasting <175 mg/dL, non-fasting Persistently elevated triglycerides may enhance atherosclerotic cardiovascular disease. Total Cholesterol 151 <200 mg/dL [facility] Total HDL-C Direct 56 >50 mg/dL [facility] Non-HDL cholesterol 95 <220 mg/dL [facility] Friedewald LDL Chol 60 <190 mg/dL [facility] Comment: The inaccuracy of the Friedewald equation at LDL Cholesterol less than 70 mg/dL has been documented. ??Various other calculations are under investigation, such as Jayy M, et al. IFTIKHAR Cardiol. 2020;5(5):540-548 or Tristian SS et al. IFTIKHAR Cardiol. 2018;3(8):749-753. ??Consider the use of non-HDL-c to estimate atherosclerotic cardiovascular disease risk. The Friedewald equation is accurate in most patients when triglycerides are less than 150 mg/dL. ??Consider the use of non-HDL-C or Apo B to help estimate atherosclerotic cardiovascular diesase risk if triglycerides are elevated. Blood 10/10/2022 11:1 4 AM CDT 10/10/2022 12:[address] [facility] - 10/10/2022 1:25 PM CDT Current interpretive data was last updated June 29, 2021. Mariela Denton MD LAB BLOOD ORDERABLE S Final Result Performing Organization Address [facility] Co de Phone Number [facility] * (ABNORMAL) Hemoglobin A1c (10/10/2022 11:14 AM CDT) HbA1c 6.7(H) 5.1 - 5.6 % [facility] Comment: HBA1C 5.1 - 5.6 = NORMAL HBA1C 5.7 - 6.4 = PREDIABETES HBA1C >=6.5 = PROVISIONAL DIAGNOSIS OF DIABETES Estimated Average Glucose 146 mg/dL [facility] Blood 10/10/2022 11:1 4 AM CDT 10/10/2022 12:04 PM CDT Mariela Denton MD LAB BLOOD ORDERABLE S Final Result Performing Organization Address [facility] Co de Phone Number [facility] documented in this encounter Visit Diagnoses Diagnosis Ulcerative colitis with complication, unspecified location (HCC) High risk medications (not anticoagulants) long-term use Encounter for long-term (current) use of other medications Healthcare maintenance documented in this encounter Additional Health Concerns Infection Onset Date Last Indicated Resolved Time COVID: Recovered Comment:Added based on recent COVID infection. 07/13/2022 07/26/2022 10/11/2022 3:05 AM C DT documented as of this encounter Care Teams Polisher Hand Relationship Specialty Start Date End Date Servando Torre MD [address] [facility] [address] [place] [address] PCP - General Family Medicine 06/19/22 Mariela Denton MD [address] [place] [address] Referring Physician Gastroenterology 06/19/22 Lexis Barroso OD [address] [place] [address] [employer] 09/19/22 documented as of this encounter
--- OUTSIDE RECORDS SUMMARY | 2024-07-12 19:46 | XMS_ITS | Encounter Summary ---
Author Organization [facility] Healthcare Address [address] [place] [address] Care Team Providers Care Jacker Name Role Phone Servando Torre MD Primary Care Provider [phone] Mariela Denton MD Unavailable [phone] Lexis Barroso OD Unavailable +- [phone] Reason for Visit * Auth/Cert (Routine) Specialty Diagnoses / Procedures Referred By Contac t Referred To Contact Diagnoses Chronic ulcerative colitis with complication, unspecified location (HCC) Chronic ulcerative colitis with complication, unspecified location (HCC) [K51.919] Procedures NC COLONOSCOPY FLX DX W/COLLJ SPEC WHEN PFRMD NC COLONOSCOPY W/BIOPSY SINGLE/MULTIPLE COLONOSCOPY Referral ID Status Reason Start Date Expiration Date Visits Re quested Visits Authorized [id number] 1 1 Encounter Details Date Type Department Care Team (Late st Contact Info) Description 11/29/2022 10:30 AM CDT - 11/29/2022 11:00 AM CDT Surgery [facility] [id number] [place] [address] Mariela Denton MD [address] [facility] [address] [place] [address] COLONOSCOPY Surgery Details Date/Time Status Location OR Service Patient Class Case Class Case Type Trauma Case? 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 Gender Identity Female 04/05/2022 6:17 PM CDT Sexual Orientation Straight 04/05/2022 6: 17 PM CDT documented as of this encounter Last Filed Vital Signs Vital Sign Reading Time Taken Comments Blood Pressure 126/67 11/29/2022 11:00 AM CDT Pulse 61 11/29/2022 11:00 AM CDT Temperature 36.2 ??C (97.2 ??F) 11/29/2022 10:40 AM C DT Respiratory Rate 61 11/29/2022 11:00 AM CDT Oxygen Saturation 97% 11/29/2022 11:00 AM CDT Inhaled Oxygen Concentration - - Weight 68 kg (150 lb) 11/29/2022 9:20 AM CDT Height 157.5 cm (5' 2 ) 11/29/2022 9:20 AM CDT Body Mass Index 27.44 11/29/2022 9:20 AM CDT documented in this encounter Discharge Instructions * Discharge Instructions* Gay Jasso RN - 11/29/2022 10:42 AM CDT SCOPE DISCHARGE INSTRUCTIONS You have had an Esophagogastroduodenoscopy (EGD) and a Colonoscopy (Colon) procedure. Sedation: You were given medication for sedation. You may feel drowsy or tired for a few hours. We recommend you not be alone today. Please do not participate in activities that require good coordination or concentration such as driving a car or operating machinery for the next 24 hours. Protect yourself against falls, especially on the stairs or when walking long distances. Delay making businessdecisions that require the signing of legal documents for a minimum of 24 hours. No alcoholic beverages for 24 hours. Diet: Type of diet ordered {GI diet instructions:69490494}. You may eat and drink at . IV: If the IV site swells or bleeds, please apply direct pressure for 5 minutes. If the site becomes red, you may apply warm, moist compresses to the site. Please see a healthcare professional if youhave concerns about your IV site. Abdomen: Following the procedure called colonoscopy, you may be aware of a bloated appearance andfeeling of your abdomen. You may also experience some cramping or gas pains . The distention and discomfort should subside as you pass the air. If you are unable to pass the air, please contact your physician. Pain/Bleeding: You have had {POST BIOPSY/DILITATION:98736655} performed during the procedure. You may expect a little bleeding from the site. Within the next 48 hours, if the bleeding becomes excessive or is accompanied by abdominal or chest pain, please call your physician immediately. If you are on aspirin or NSAIDS (non-steroidal anti-inflammatory drugs) then you can resume in {Endo ASA/NSAIDS:02212126}. If no follow-up appointment is required, you may receive a letter or phone call from the physician regarding your test/biopsy results within the next two weeks. A note will also be sent to your referring physician. If you have any questions, please call your physician's office. documented in this encounter Medications at Time of Discharge cholecalciferol (VITAMIN D-3) 2000 unit tabletIndications :Low [...] 6 (six) hours as needed 09/30/2022 4 amLODIPine (NORVASC) 5 mg tablet Take 1 tablet (5 mg total) by mouth daily 90 tablet 1 07/08/2022 3 aspirin 81 mg enteric coated tablet Take 1 tablet (81 mg total) by mouth daily 4 azaTHIOprine (IMURAN) 100 mg tabletIndications :Ulcerative colitis with complication, unspecified location (HCC) Take 1 tablet (100 mg total) by mouth daily Safety labs required every 3 months for med refills, next labs due 08/2022. 90 tablet 08/15/[address]/ER (UCERIS) 9 mg tablet, delayed & ext.releaseIndica tions:Ulcerative Colitis Take 1 tablet (9 mg total) by mouth daily 30 tablet 05/30/2022 3 diphenoxylate-atr opine (LOMOTIL) 2.5-0.025 mg per tablet Take 1 tablet by mouth 2 (two) times a day 3 ferrous sulfate ER 324 mg (65 mg iron) EC tabletIndications :Iron Deficiency Anemia Take 1 tablet (324 mg total) by mouth daily with breakfast 90 tablet 1 10/10/2022 3 Lactobacillus acidophilus (PROBIOTIC ORAL) Take by mouth 06/11 3 mesalamine (APRISO) 0.375 gram 24 hr capsuleIndication s:Ulcerative Colitis Take 4 capsules (1.5 g total) by mouth daily 120 capsule 11 08/15/2022 4 metFORMIN (GLUCOPHAGE) 850 mg tabletIndications :Type 2 diabetes mellitus with hyperglycemia, without long-term current use of insulin (HCC) Take 1 tablet (850 mg total) by mouth 2 (two) times a day with meals 60 tablet 2 09/19/2022 3 metoprolol tartrate (LOPRESSOR) 50 mg immediate release tablet Take 1 tablet (50 mg total) by mouth 2 (two) times a day 180 tablet 1 08/08/[address] (PROTONIX) 40 mg EC tablet Take 1 tablet (40 mg total) by mouth daily 90 tablet 1 08/08/2022 3 pravastatin (PRAVACHOL) 40 mg tablet Take 1 tablet (40 mg total) by mouth daily 90 tablet 1 08/08/2022 3 Saccharomyces boulardii (FLORASTOR) 250 mg capsule Take by mouth 3 vedolizumab (ENTYVIO) 300 mg recon soln Infuse 5 mL (300 mg total) into a venous catheter every 8 (eight) weeks 3 documented as of this encounter Discharge Disposition Disposition Code Departure Means Destination Comment s Discharge to home or self care documented in this encounter H&P Notes * Mariela Denton MD - 11/28/2022 1:30 PM CDT Pre Endoscopy History and Physical Lisa Allen is a 77 y.o. female who is here for Procedure(s): COLONOSCOPY The indication(s) for the procedure(s): ibd. 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 Prediabetes 06/19/2022 Ulcerative colitis (HCC) 2019 Past Surgical History: Procedure Laterality Date FEMUR FRACTURE SURGERY Left 2010 PARTIAL HIP ARTHROPLASTY Left 2015 RETINAL DETACHMENT SURGERY Right Social History Tobacco Use Smoking status: Never Smokeless tobacco: Never Substance and Sexual Activity Drug use: Never Sexual activity: None Alcohol Use: Not At Risk (06/19/2022) AUDIT-C Frequency of Alcohol Consumption: Never Average Number of Drinks: Patient does not drink Frequency of Binge Drinking: Never Family History Problem Relation Age of Onset Atrial fibrillation Mother Breast cancer Mother Stroke Mother Cancer Father No Known Allergies Prior to Admission medications Medication Sig Start Date End Date Taking? Authorizing Provider amLODIPine (NORVASC) 5 mg tablet Take 1 tablet (5 mg total) by mouth daily 07/08/22 OlusegunA. Torre MD aspirin 81 mg enteric coated tablet Take 81 mg by mouth daily Silvestre Ahn MD azaTHIOprine (IMURAN) 100 mg tablet Take 1 tablet (100 mg total) by mouth daily Safety labs required every 3 months for med refills, next labs due 08/2022. 08/15/22 Mariela Denton MD budesonide DR/ER (UCERIS) 9 mg tablet, delayed & ext.release Take 1 tablet (9 mg total) by mouth daily Patient not taking: Reported on 09/19/2022 05/30/22 Mariela Denton MD cholecalciferol (VITAMIN D-3) 2000 unit tablet Take 1 tablet (2,000 Units total) by mouth daily LowVitamin D level from 05/30/2022. 05/31/22 Mariela Denton MD diphenoxylate-atropine (LOMOTIL) 2.5-0.025 mg per tablet Take 1 tablet by mouth 2 (two) times a day Patient not taking: Reported on 09/19/2022 Silvestre Ahn MD ferrous sulfate ER 324 mg (65 mg iron) EC tablet Take 1 tablet (324 mg total) by mouth daily with breakfast 10/10/22 Servando Torre MD Lactobacillus acidophilus (PROBIOTIC ORAL) Take by mouth Silvestre Ahn MD mesalamine (APRISO) 0.375 gram 24 hr capsule Take 4 capsules (1.5 g total) by mouth daily 08/15/22 08/15/23 Mariela Denton MD metFORMIN (GLUCOPHAGE) 850 mg tablet Take 1 tablet (850 mg total) by mouth 2 (two) times a day withmeals 09/19/22 Servando Torre MD metoprolol tartrate (LOPRESSOR) 50 mg immediate release tablet Take 1 tablet (50 mg total) by mouth2 (two) times a day 08/08/22 Servando Torre MD multivitamin capsule Take 1 capsule by mouth daily Silvestre Ahn MD OneTouch Delica Plus Lancet 33 gauge misc 1 each by other route daily To check glucose with glucosemonitor and strip 08/16/22 Servando Torre MD OneTouch Ultra Test strip 1 each by other route daily To check blood glucose 08/16/22 Servando Torre MD pantoprazole DR (PROTONIX) 40 mg EC tablet Take 1 tablet (40 mg total) by mouth daily 08/08/22 Servando Torre MD pravastatin (PRAVACHOL) 40 mg tablet Take 1 tablet (40 mg total) by mouth daily 08/08/22 Servando Torre MD Saccharomyces boulardii (FLORASTOR) 250 mg capsule Take by mouth Patient not taking: Reported on 09/19/2022 Provider, MD Silvestre vedolizumab (ENTYVIO) 300 mg recon soln Infuse 300 mg into a venous catheter every 8 (eight) weeks Mariela Denton MD Review of Systems A pertinent, focused review of systems was completed and negative, except as noted above. OBJECTIVE: Vitals: There were no vitals filed for this visit. Physical Exam: Airway: No significant abnormality. Cardiac: No significant abnormality. Pulmonary: No significant abnormality. Neurological: No significant abnormality. Gastrointestinal: No significant abnormality. ASA Score: per Anesthesia Sedation/Anesthesia Plan: per Anesthesia The risks and complications of the procedure have been explained to the patient. Informed consent was signed. Impression and plan: Will proceed with the planned procedure for the reasons stated above. documented in this encounter Procedure Notes * Mariela Denton MD - 11/29/2022 10:18 AM CDTAssociated Order(s): COLONOSCOPY ENDOSCOPY LAB Patient Name: Lisa Allen Procedure Date: 11/29/2022 10:18 AM Date of : 1945 Admit Type: Outpatient Age: 77 Gender: Female Attending MD: Mariela Denton M.D. Room: [facility] ENDOSCOPY ROOM 01 Note Status: Finalized Procedure: Colonoscopy Indications: Disease activity assessment of chronic ulcerative pancolitis, Assess therapeutic response to therapy of chronic ulcerative pancolitis on Entyvio Q8 and Apriso Providers: Mariela Denton M.D. Referring MD: Servando Torre M.D. Medicines: Monitored Anesthesia Care Complications: No immediate complications. Estimated Blood Loss: Estimated blood loss: none. Procedure: Pre-Anesthesia Assessment: - The risks and benefits of the procedure and the sedation options and risks were discussed with the patient. All questions were answered and informed consent was obtained. - Pre-procedure physical examination revealed no contraindications to sedation. The benefits, risks and alternatives of the procedure and sedation were discussed and informed consent was obtained. All questions were answered. Please refer to the signed informed consent document in the medical record. The scope was passed under direct vision. The [id number] was introduced through the anus and advanced to the terminal ileum. The colonoscopy was performed without difficulty. The patient tolerated the procedure well. The quality of the bowel preparation was excellent. Bowel prep was administered using a split dose. Findings: The perianal and digital rectal examinations were normal. The mucosa vascular pattern in the recto-sigmoid colon was diffusely decreased. Multiple small-mouthed diverticula were found in the sigmoid colon. The terminal ileum appeared normal. Ulcerated Pseudopolyp were found in the recto-sigmoid colon. Non-bleeding internal hemorrhoids were found during retroflexion. The exam was otherwise normal throughout the examined colon. Impression: - Decreased mucosa vascular pattern in the recto-sigmoid colon. - Diverticulosis in the sigmoid colon. - The examined portion of the ileum was normal. - Pseudopolyp in the recto-sigmoid colon. - No specimens collected. Recommendation: - Discharge patient to home. - Resume previous diet. - Contact Information: During normal business hours - Please call the Nurse Coordinator: [phone] After hours, evening, nights, weekends and holidays - Please call the hospital geophysical operator at and ask for the GI fellow electron beam welder. Electronically signed by Mariela Denton M.D. Mariela Denton M.D. 11/29/2022 10:54:08 AM Number of Addenda: 0 Note Initiated On: 11/29/2022 10:18 AM documented in this encounter Miscellaneous Notes * Perioperative Nursing Note - Gay Jasso RN - 11/29/2022 10:50 AM CDT discussed findings. Discharge instructions given to patient, (and by phone - directed to belt picker location).Understanding expressed, questions answered.(No signatures due to CoVid19 protocol) Tolerating po fluids. * Pre-Procedure Instructions - Riri Bro RN - 11/28/2022 12:38 PM CDT Please follow all instruction you were given regarding your bowel prep. When you arrive come to [facility] Hospital entrance. As you enter there will be an information desk, let them know you are here for a procedure and you will be directed to procedure registration area Once registered one of the endoscopy nurses will come to get you ready for your colonoscopy. Dress comfortable. Leave valuable at home-samuels, credit cards, jewelry For your safety due to the anesthesia you will not be able to drive so please have a ride arranged to and from hospital with a responsible adult. Someone that knows you and can care for you. Please no form of public transportation(Uber, Lift, non-medical transport)by yourself will be allowed Your cryogenic transport driver must be at least 18 y/o If your cryogenic transport driver chooses not to come in to the building or will be picking you up after your procedure-we will call your cryogenic transport driver to confirm your ride home prior to the procedure start time Masking at [facility] is now optional. You may bring a mask and masks are available at hospital entrance. We respect personal choice of anyone who chooses to mask. Be assured employees are ready to mask upon request when providing care. My number is [phone] documented in this encounter Plan of Treatment Not on file documented as of this encounter Procedures Procedure Name Priority Date/Time Associated Diagnosis Comments COLONOSCOPY 11/29/2022 10:22 AM CDT Chronic ulcerative colitis with complication, unspecified location (HCC) COLONOSCOPY 11/29/2022 10:18 AM CDT POCT GLUCOSE DEVICE Routine 11/29/2022 9 :46 AM CDT documented in this encounter Results * COLONOSCOPY (11/29/2022 10:18 AM CDT) Anatomical Region Laterality Modality Other Narrative Procedure Note Mariela Denton MD - 11/29/2022 10:18 AM CDT ENDOSCOPY LAB Patient Name: Lisa Allen Procedure Date: 11/29/2022 10:18 AM Date of : 1945 Admit Type: Outpatient Age: 77 Gender: Female Attending MD: Mariela Denton M.D. Room: [facility] ENDOSCOPY ROOM 01 Note Status: Finalized Procedure: Colonoscopy Indications: Disease activity assessment of chronic ulcerative pancolitis, Assess therapeutic response to therapyof chronic ulcerative pancolitis on Entyvio Q8 andApriso Providers: Mariela eDnton M.D. Referring MD: Servando Torre M.D. Medicines: Monitored Anesthesia Care Complications: No immediate complications. Estimated Blood Loss: Estimated blood loss: none. Procedure: Pre-Anesthesia Assessment: - The risks and benefits of the procedure and the sedation options and risks were discussed with the patient. All questions were answered and informed consent was obtained. - Pre-procedure physical examination revealed no contraindications to sedation. The benefits, risks and alternatives of theprocedure and sedation were discussed and informed consentwas obtained. All questions were answered. Please referto the signed informed consent document in the medical record. The scope was passed under direct vision.The [id number] was introduced through the anusand advanced to the terminal ileum. The colonoscopy was performed without difficulty. The patient tolerated the procedure well. The quality of the bowel preparation was excellent. Bowel prep wasadministered using a split dose. Findings: The perianal and digital rectal examinations were normal. The mucosa vascular pattern in the recto-sigmoid colon was diffusely decreased. Multiple small-mouthed diverticula were found in the sigmoid colon. The terminal ileum appeared normal. Ulcerated Pseudopolyp were found in the recto-sigmoid colon. Non-bleeding internal hemorrhoids were found during retroflexion. The exam was otherwise normal throughout the examined colon. Impression: - Decreased mucosa vascular pattern in the recto-sigmoid colon. - Diverticulosis in the sigmoid colon. - The examined portion of the ileum was normal. - Pseudopolyp in the recto-sigmoid colon. - No specimens collected. Recommendation: - Discharge patient to home. - Resume previous diet. - Contact Information: During normal business hours - Please call theNurse Coordinator: [phone] After hours, evening, nights, weekends and holidays- Please call the hospital geophysical operator at and ask for the GI fellow electron beam welder. Electronically signed by Mariela Denton M.D. Mariela Denton M.D. 11/29/2022 10:54:08 AM Number of Addenda: 0 Note Initiated On: 11/29/2022 10:18 AM Mariela Denton MD ENDOSCOPY PROCEDURE S Final Result * POCT glucose (11/29/2022 9:46 AM CDT) [facility] Signature Glucose, POC 166 70 - 199 mg/dL AILEEN ROSAS Comment: Interpretive Data Glucose is assumed to be non-fasting. Fasting Glucose reference ranges are: 0 - 150 years: ??70 mg/dL - 99 mg/dL Current interpretive data was last revised on 2014. POC Performer [id number] AILEEN ROSAS POC Device Number [id number] [facility] Blood 11/29/2022 9:46 AM CDT 11/29/2022 9:46 AM CDT Mariela Denton MD LAB POCT ORDERABLES - DEVICE Final Result [facility] [address] [facility] [place] [address] documented in this encounter Visit Diagnoses Diagnosis Chronic ulcerative colitis with complication, unspecified location (HCC) documented in this encounter Administered Medications Inactive Administered Medications - up to 3 most recent administrations Medication Order MAR Action Action Date Dose Rate Site ondansetron (ZOFRAN) 4 mg/2 mL injection - ADS Override Pull Starting on Fri11/29/22 at 0944, For 1 dose, Created by cabinet override ondansetron (ZOFRAN) injection 4 mg 4 mg, intravenous, Administer over 2 Minutes, Once, On Fri11/29/22 at 1030, For 1 dose, Pre-Op Given 11/29/2022 9:48 AM CDT 4 mg sodium chloride 0.9% flush 0.5-20 mL 0.5-20 mL, intra-catheter, As needed, line care, Starting on Fri11/29/22 at 0930, Pre-Procedure (GI), Flush volume based on line type and size. Flush before and after each use. , Indications: FlushingIndications:Flushin g sodium chloride 0.9% infusion 30 mL/hr, intravenous, Continuous, Starting on Fri11/29/22 at 1015, Pre-Procedure (GI) Rate/Dose Verify 11/29/2022 10:21 AM CDT 30 mL/hr New Bag 11/29/2022 9:41 AM CDT 30 mL/hr 30 mL/hr documented in this encounter Active and Recently Administered Medications Times are shown in CDT. Scheduled Medication Order 11/27/2022 11/28/2022 11/29/2022 ondansetron (ZOFRAN) injection 4 mg (COMPLETED) 4 mg, intravenous, Administer over 2 Minutes, Once, On Fri11/29/22 at 1030, For 1 dose, Pre-Op 0948 (Given - Provid er: Rosy Jang RN) Continuous Medication Order 11/27/2022 11/28/2022 11/29/2022 sodium chloride 0.9% infusion 30 mL/hr, intravenous, Continuous, Starting on Fri11/29/22 at 1015, Pre-Procedure (GI) 0941 (New Bag - Prov ider: Rosy Jang RN)1021 (Rate/Dose Verify - Provider: Leena Jaimes CRNA)1040 (Anesthesia Volume Adjustment - Provider: Leena Jaimes CRNA)1049 (Stopped - Provider: Gay Jasso, ELMO) PRN Medication Order 11/27/2022 11/28/2022 11/29/2022 ondansetron (ZOFRAN) injection 4 mg 4 mg, intravenous, Administer over 2 Minutes, Every 30 min PRN, nausea, vomiting, Starting on Fri11/29/22 at 1041, For 2 doses, Recovery (GI), Indications: Nausea and Vomiting sodium chloride 0.9% flush 0.5-20 mL 0.5-20 mL, intra-catheter, As needed, line care, Starting on Fri11/29/22 at 0930, Pre-Procedure (GI), Flush volume based on line type and size. Flush before and after each use. , Indications: Flushing documented in this encounter Orders Medications Ordered That Marbin ht Not Have Been Administered Count Last Ordered Date First Ordered Date ondansetron (ZOFRAN) injection 4 mg 1 11/29 sodium chloride 0.9% flush 0.5-20 mL 1 11/2022 Discharge Count Last Ordered Date First Orde red Date DISCHARGE PATIENT 1 11/29/2022 documented in this encounter Care Teams Jacker Relationship Specialty Start Date End Date Servando Torre MD [facility] [address] PCP - General Family Medicine 06/19/22 Mariela Denton MD [facility] [address] [place] [address] Referring Physician Gastroenterology 06/19/22 Lexis Barroso OD [address] [place] [address] Offensive Coordinator 09/19/22 documented as of this encounter
--- OUTSIDE RECORDS SUMMARY | 2024-07-12 19:46 | XMS_ITS | Encounter Summary ---
Author Organization [facility] Address [address] [facility] [address] [place] [address] Care Team Providers Care Parimutuel Ticket Checker Name Role Phone Servando Torre MD Primary Care Provider [phone] Mariela Denton MD Unavailable [phone] Lexis Barroso OD Unavailable [phone]- [phone] Encounter Details Date Type Department Care Team (Late st Contact Info) Description 11/08/2022 Telephone [facility] Primary Care at [place] [address] [place] [address] Servando Torre MD [address] [place] [address] [address] [place] [address] Social History Tobacco Use Types [...] on file 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 It can be faxed to [phone]. If you have any questions please call [phone] and ask for Saul. Thank you * Telephone Encounter - Vero Antonio - 11/08/2022 8:47 AM CDT [facility] , pt has a apt at 12 pm , please advise thanks. [phone] FX [phone] documented in this encounter Plan of Treatment Not on file documented as of this encounter Visit Diagnoses Diagnosis Balance problem- Primary Abnormality of gait documented in this encounter Care Teams Parimutuel Ticket Checker Relationship Specialty Start Date End Date Servando Torre MD [address] [address] PCP - General Family Medicine 06/19/22 Mariela Denton MD [address] [place] [address] Referring Physician Gastroenterology 06/19/22 Lexis Barroso OD [address] [place] [address] Chips Screen Tender 09/19/22 documented as of this encounter
--- OUTSIDE RECORDS SUMMARY | 2024-07-12 19:46 | XMS_ITS | Encounter Summary ---
Author Organization [facility] Address [address] [facility] [address] [place] [address] Care Team Providers Care Malted Milk Mixer Name Role Phone Servando Torre MD Primary Care Provider [phone] Mariela Denton MD Unavailable [phone] Encounter Details Date Type Department Care Team (Late st Contact Info) Description 07/12/2022 Telephone [facility] Primary Care at [address] [address] Servando Torre MD [address] [place] [address] [address] [place] [address] Social History Tobacco Use Types [...] points, staff should administer the PHQ-9) 0 06/19/2022 Comments Unknown Sex and Gender Information Value Date Recorded Sex Assigned at Not on file Legal Sex Female 9:30 AM PARTY COORDINATOR Gender Identity Female 04/05/2022 6:17 PM CDT Sexual Orientation Straight 04/05/2022 6: 17 PM CDT documented as of this encounter Miscellaneous Notes * Telephone Encounter - Servando Torre MD - 07/12/2022 4:18 PM PARTY COORDINATOR ordered Y COORDINATOR * Telephone Encounter - Vero Antonio - 07/12/2022 1:36 PM CST Pt is currently being see for her L shoulder with [facility] in [place] , but the pt has been having some gait and balance issues. They are requesting a script for Physical therapy to treat the pt. For any questions you can speak with the provider Saul Ribera. Fx [phone] Y COORDINATOR documented in this encounter Plan of Treatment Not on file documented as of this encounter Visit Diagnoses Diagnosis Balance problem- Primary Abnormality of gait documented in this encounter Additional Health Concerns Infection Onset Date Last Indicated Resolved Time COVID19 07/03/2022 07/03/2022 07/13/2022 3:05 AM PARTY COORDINATOR documented as of this encounter Care Teams Malted Milk Mixer Relationship Specialty Start Date End Date Servando Torre MD [address] [place] [address] PCP - General Family Medicine 06/19/22 Mariela Denton MD [address] [place] [address] Referring Physician Gastroenterology 06/19/22 documented as of this encounter
--- OUTSIDE RECORDS SUMMARY | 2024-07-12 19:46 | XMS_ITS | Encounter Summary ---
Author Organization [facility] Medical [facility] Address [address] [facility] [address] [place] [address] Care Team Providers Care Buttermaker Helper Name Role Phone Servando Torre MD Primary Care Provider [phone] Mariela Denton MD Unavailable [phone] Reason for Referral * Procedure (Routine) - Closed Specialty Diagnoses / Procedures Referred By Angel braswell Referred To Contact Diagnoses Bilateral impacted cerumen Procedures Ear Cerumen Removal Servando Torre MD [address] [place] [address] [address] [place] [address] Phone: tel: fax: [facility] Referral ID Status Reason Start Date Expiration Date Visits Re quested Visits Authorized [id number] Closed 09/11/2022 10/11/2023 1 1 FIC OPERATIONS MANAGER Reason for Visit * Reason Comments Cerumen Impaction Pt is here to have e ar cleaning. She saw an supervisor wire rope fabrication and they recommend she see an ENT for wax build up because the wax was close to her ear drum. Encounter Details Date Type Department Care Team (Late Contact Info) Description 09/11/2022 10:00 AM TRAFFIC OPERATIONS MANAGER Office Visit [facility] Primary Care at [address] [id number] Servando Torre MD [address] [place] [address] [address] [place] [address] Bilateral impacted cerumen (Primary Dx) Social History Tobacco Use Types [...] points, staff should administer the PHQ-9) 0 09/11/2022 Comments Unknown Sex and Gender Information Value Date Recorded Sex Assigned at Not on file Legal Sex Female 9:30 AM TRAFFIC OPERATIONS MANAGER Gender Identity Female 04/05/2022 6:17 PM CDT Sexual Orientation Straight 04/05/2022 6: 17 PM CDT documented as of this encounter Last Filed Vital Signs Vital Sign Reading Time Taken Comments Blood Pressure 134/80 09/11/2022 10:13 AM TRAFFIC OPERATIONS MANAGER Pulse 75 09/11/2022 10:13 AM TRAFFIC OPERATIONS MANAGER Temperature 36.8 ??C (98.3 ??F) 09/11/2022 1 0:13 AM TRAFFIC OPERATIONS MANAGER Respiratory Rate - - Oxygen Saturation 98% 09/11/2022 10: 13 AM TRAFFIC OPERATIONS MANAGER Inhaled Oxygen Concentration - - Weight 70.7 kg (155 lb 12.8 oz) 023 10:13 AM TRAFFIC OPERATIONS MANAGER Height 157.5 cm (5' 2 ) 09/11/2022 10:1 3 AM TRAFFIC OPERATIONS MANAGER Body Mass Index 28.5 09/11/2022 10:13 AM TRAFFIC OPERATIONS MANAGER documented in this encounter Patient Instructions * Patient Instructions* Servando Torre MD - 09/11/2022 10:00 AM TRAFFIC OPERATIONS MANAGER Successful removal; there is residual cerumen, but not impacted Advising to use at-home earwax cleanser kit once weekly Examples: WaxRx, Debrox, Murine Will re-look next week at [facility] Thanks for coming in today! My medical assistants and I are thankful you have trusted us with your care, and hope that you received EXCELLENT care today! Please do not hesitate to call if you have any questions or concerns at [phone]. You may receive a phone call, text, MYCHART message, or e-mail asking about your care today. We would love to hear your feedback on how EXCELLENT your care wastoday! Wishing you better health, always. Dr. Torre FIC OPERATIONS MANAGER * Attachments The following attachments cannot be sent through Care Everywhere. * Cerumen Impaction (General Information) (Nigerian) documented in this encounter Progress Notes * Servando Torre MD - 09/11/2022 10:00 AM CST Images from the original note were not included. Subjective/Objective Patient ID: Lisa Allen is a 77 y.o. female. Chief Complaint Cerumen Impaction (Pt is here to have ear cleaning. She saw an supervisor wire rope fabrication and they recommend she see an ENT for wax build up because the wax was close to her ear drum.) Lisa sent here from her supervisor wire rope fabrication, who told her with her impacted ears they couldn't refit her for a new set of hearing aids. Current Outpatient Medications: amLODIPine (NORVASC) 5 mg tablet, Take 1 tablet (5 mg total) by mouth daily, Disp: 90 tablet, Rfl: 1 aspirin 81 mg enteric coated tablet, Take 81 mg by mouth daily, Disp: , Rfl: azaTHIOprine (IMURAN) 100 mg tablet, Take 1 tablet (100 mg total) by mouth daily Safety labs required every 3 months for med refills, next labs due 08/2022., Disp: 90 tablet, Rfl: [address]/ER [...] mg (65 mg iron) EC tablet, Take 65 mg by mouth, Disp: , Rfl: Lactobacillus acidophilus (PROBIOTIC ORAL), Take by mouth, Disp: , Rfl: mesalamine (APRISO) 0.375 gram 24 hr capsule, Take 4 capsules (1.5 g total) by mouth daily, Disp: 120 capsule, Rfl: 11 metFORMIN (GLUCOPHAGE) 500 mg tablet, Take 1 tablet (500 mg total) by mouth 2 (two) times a day with meals, Disp: 180 tablet, Rfl: 3 metoprolol tartrate (LOPRESSOR) 50 mg immediate [...] capsule, Take by mouth, Disp: , Rfl: Review of Systems Constitutional: Negative for chills, fatigue and fever. HENT: Positive for hearing loss. Negative for ear discharge and ear pain. Skin: Negative. BP 134/80 (BP Location: Right arm, Patient Position: Sitting) Pulse 75 Temp 36.8 ??C (98.3 ??F)(Oral) Ht 157.5 cm (5' 2 ) Wt 70.7 kg (155 lb 12.8 oz) SpO2 98% BMI 28.50 kg/m?? Physical Exam Vitals reviewed. HENT: Right Ear: External ear normal. There is impacted cerumen. Left Ear: External ear normal. There is impacted cerumen. Neurological: Mental Status: She is alert. Assessment/Plan Diagnoses and all orders for this visit: Bilateral impacted cerumen (Primary) Comments: Successful removal; there is residual cerumen, but not impacted Advising to use at-home earwax cleanser kit once weekly Examples: Mejia Hay Murine Orders: - Ear Cerumen Removal My total encounter time on 09/11/2022 was 40 minutes which was spent in the activities documented inthe note. This includes time spent prior to the visit and after the visit in direct care of the patient. This time does not include time spent in any separately reportable services. Servando Torre MD This office note has been partially dictated using Soflow software, and as a result portions of the record may have been created with this software. Occasional wrong-word or 'oquty-i-ulog' substitutions may have occurred due to the inherent limitations of voice recognition software. Read the chartcarefully and recognize, using context, where substitutions have occurred. FIC OPERATIONS MANAGER documented in this encounter Procedure Notes * Servando Torre MD - 09/11/2022 10:00 AM CSTAssociated Order(s): Ear Cerumen Removal Post-Procedure Diagnose(s): Bilateral impacted cerumen Ear Cerumen Removal Performed by: Servando Torre MD Authorized by: Servando Torre MD Consent Given by: Patient Timeout: prior to procedure the correct patient, procedure, and site was verified Verbal consent obtained: Yes Risks, alternatives, and patient questions discussed: No Preparation: Patient was prepped using a clean technique Location: Bilateral L ear cerumen impacted?: Yes L ear method of removal: Instrumentation and irrigation L ear instrumentation: Curette L ear magnification: Otoscope R ear cerumen impacted?: Yes R ear method of removal: Instrumentation and irrigation R ear instrumentation: Curette R ear magnification: Otoscope Inspection: Bleeding, TM intact and cerumen remains (majority of cerumen removed B/l; large, dried piece removed from right ear) Hearing quality: Improved Patient tolerance: Patient tolerated the procedure well with no immediate complications FIC OPERATIONS MANAGER documented in this encounter Plan of Treatment Not on file documented as of this encounter Procedures Procedure Name Priority Date/Time Associated Diagnosis Comments NJ REMOVAL IMPACTED CERUMEN INSTRUMENTATION UNILAT Routine 09/11/2022 10:00 AM TRAFFIC OPERATIONS MANAGER Bilateral impacted cerumen documented in this encounter Results * NJ REMOVAL IMPACTED CERUMEN INSTRUMENTATION UNILAT (09/11/2022 10:00 AM TRAFFIC OPERATIONS MANAGER) Narrative Servando Torre MD - 09/11/2022 10:00 AM TRAFFIC OPERATIONS MANAGER Servando Torre MD ? 09/13/2022 ??5:49 PM Ear Cerumen Removal Performed by: Servando Torre MD Authorized by: Servando Torre MD Consent Given by: ??Patient Timeout: prior to procedure the correct patient, procedure, and site was verified ?? Verbal consent obtained: Yes ?? Risks, alternatives, and patient questions discussed: No ?? Preparation: Patient was prepped using a clean technique ?? Location: ??Bilateral L ear cerumen impacted?: Yes ?? L ear method of removal: ??Instrumentation and irrigation L ear instrumentation: ??Curette L ear magnification: ??Otoscope R ear cerumen impacted?: Yes ?? R ear method of removal: ??Instrumentation and irrigation R ear instrumentation: ??Curette R ear magnification: ??Otoscope Inspection: ??Bleeding, TM intact and cerumen remains (majority of cerumen removed B/l; large, dried piece removed from right ear) Hearing quality: ??Improved Patient tolerance: ??Patient tolerated the procedure well with no immediate complications Servando Torre MD IN CLINIC/BEDSIDE ORDERABLE S Final Result documented in this encounter Visit Diagnoses Diagnosis Bilateral impacted cerumen- Primary Impacted cerumen documented in this encounter Discontinued Medications Medication Sig Discontinue Reason Start Date End Da te benzonatate (TESSALON) 200 mg capsuleIndications:Coug h, unspecified type Take 1 capsule (200 mg total) by mouth 3 (three) times a day as needed for cough keep tessalon out of reach of children, especially children under the age of 10, due to possible serious risk such as if ingested by children under the age of 10. Therapy completed 07/03/2022 09/11/2022 documented as of this encounter Additional Health Concerns Infection Onset Date Last Indicated Resolved Time COVID: Recovered Comment:Added based on recent COVID infection. 07/13/2022 07/26/2022 10/11/2022 3:05 AM C DT documented as of this encounter Care Teams Buttermaker Helper Relationship Specialty Start Date End Date Servando Torre MD [address] [facility] [address] [place] [address] PCP - General Family Medicine 06/19/22 Mariela Denton MD [address] [place] [address] Referring Physician Gastroenterology 06/19/22 documented as of this encounter
--- OUTSIDE RECORDS SUMMARY | 2024-07-12 19:46 | XMS_ITS | Encounter Summary ---
Author Organization [facility] Address [address] [place] [address] Phone Care Team Providers Care Building Coordinator Name Role Phone Jared Abrams MD Primary Care Provider [phone] Servando Torre MD Primary Care Provider [phone] Mariela Denton MD Unavailable [phone] Reason for Visit * Reason Onset Date Comments Submitting for Entyvio 06/03/2022 Encounter Details Date Type Department Care Team (Late st Contact Info) Description 06/03/2022 Telephone [facility] Gastroenterology [address] [facility] 12th [place] [address] [place] [address] Janice Baez LPN Submitting for Entyvio Social History Tobacco Use Types Packs/Day Years Used Date Smoking Tobacco: Never AUDIT-C Answer Date Recorded Q1: [...] on file Legal Sex Female 9:30 AM GIMP TACKER Gender Identity Female 04/05/2022 6:17 PM CDT Sexual Orientation Straight 04/05/2022 6: 17 PM CDT documented as of this encounter Miscellaneous Notes * Telephone Encounter - Janice Baez LPN - 06/18/2022 12:03 PM CST 06/18/2022: Per note from Jaqueline BORREGO on 06/10/2022, pt requested that infusion therapy (new start Entyvio) be arranged for [facility] in [place], [place]. Approval was obtained by pre-cert team for therapy. Infusion auth, infusion order, IOV note, and demographics all faxed to infusion center at . Jaqueline BORREGO cc'd so that she is aware. Asked infusion center to get patient scheduled to start therapy SHRIA. Follow up [facility] portal msg sent to pt notifying her of approval. Advisedpatient to reach out to infusion center next week if she hasn't heard from them by then re: scheduling. Pt provided with phone number for infusion center. -------Fax Transmission Report------- To: Recipient at [phone] Subject: Re: Joseph Allen - Entyvio Referral [Secure] Result: The transmission was successful. Explanation: All Pages Ok Pages Sent: 16 Connect Time: 11 minutes, 54 seconds Transmit Time: 06/18/2022 12:05 Transfer Rate: 9600 Status Code: 0000 Retry Count: 0 Job Id: [id number] Unique Id: [id number] Fax Line: 16 Fax Fitter'S Assistant: [id number] 07/03/2022: Pt is scheduled to begin Entyvio therapy tomorrow 07/04/2022. TACKER TACKER TACKER * Telephone Encounter - Janice Baez LPN - 06/05/2022 9:55 AM CST Have not received return call from Lisa regarding site of care option ([facility]) so we have not been able to proceed with submitting for Entyvio. Pt's dgtr Aby (proxy) has been communicating with our office via pt's [employer] portal. Msg sent to Lisa/Aby this morning to discuss this site of care option and whether this location was OK for Entyvio therapy. Waiting to hear back from patient/dgtr to figure out whether we can proceed with this referral. TACKER * Telephone Encounter - Janice Baez LPN - 06/03/2022 2:11 PM CST Pt established care with Dr. Denton on 05/30/2022 at which time starting Entyvio therapy for UC was discussed. Pt lives in [place], [place], I was able to locate a facility in [facility] ([facility]) which does have an infusion center. Call placed to infusion center this afternoon to find out about their referral process and whether they administer Entyvio at their center. Spoke with staff member in surgery department (which acts as their infusion center), confirmed that they doadminister Entyvio at their center, do accept [facility] order and can have their rn medical inpatient services co-signif the patient does not have a PCP with privileges at their hospital, they will accept our [facility] order (no addt'l order forms), we are required to obtain auth, and they do draw labs. The staff member that I spoke with was unable to provide me with their Tax ID and NPI numbers and transferred me to Vannessa (administrative personal assistant) who likely would have this information. Unable to reach Vannessa at timeof call, left message explaining that I called about a possible Entyvio referral and that I was needing their Tax ID and NPI numbers so that auth can be obtained for their center if required. Left mydirect office number on Vannessa's VM and asked her to give me a call at her convenience. Referral canotherwise be faxed to [phone]. Direct extension to surgery department P: ext [phone]. Per review of chart, pt has Medicare Part A&B and possibly a supplemental BCBS plan (BCBSplan also scanned under Media). Will wait to hear back from Vannessa re: Tax ID and NPI numbers, reminder set. Call placed to patient this afternoon to follow up and verify insurance coverage and discuss this site of care option. Unable to reach Lisa at time of call, left detailed message explaining that I was giving her a call to discuss her Entyvio therapy. Mentioned to patient on VM that I was able to locate a facility which can administer this therapy in [place], [place] and providing facility name - informed pt that I wanted to touch base with her to verify whether this facility would work for her. Also explained to patient that I was hoping to verify her insurance coverage. Left my direct office number on pt's home voicemail and asked her to give me a call back at her convenience. TACKER documented in this encounter Plan of Treatment Not on file documented as of this encounter Visit Diagnoses Not on filedocumented in this encounter Care Teams Building Coordinator Relationship Specialty Start Date End Date Jared Abrams MD [facility] [place] [address] PCP - General Internal Medicine 05/30/22 06/18/22 Servando Torre MD [facility] [address] [place] [address] PCP - General Family Medicine 06/19/22 Mariela Denton MD [address] [place] [address] Referring Physician Gastroenterology 06/19/22 documented as of this encounter
--- OUTSIDE RECORDS SUMMARY | 2024-07-12 19:46 | XMS_ITS | Encounter Summary ---
Author Organization [facility] Address [address] [facility] [address] [place] [address] Care Team Providers Care Freelance Court Stenographer Name Role Phone Servando Torre MD Primary Care Provider Mariela Denton MD Unavailable [phone] Encounter Details Date Type Department Care Team (Late st Contact Info) Description 07/26/2022 9:15 AM CARD GRINDER HELPER Lab [facility] Outpatient Lab at [address] [address] Cough, unspecified type Social History Tobacco Use Types Packs/Day Years [...] on file Legal Sex Female 9:30 AM CARD GRINDER HELPER Gender Identity Female 04/05/2022 6:17 PM CDT Sexual Orientation Straight 04/05/2022 6: 17 PM CDT documented as of this encounter Plan of Treatment Not on file documented as of this encounter Visit Diagnoses Diagnosis Cough, unspecified type documented in this encounter Additional Health Concerns Infection Onset Date Last Indicated Resolved Time COVID: Recovered Comment:Added based on recent COVID infection. 07/13/2022 07/26/2022 10/11/2022 3:05 AM C DT documented as of this encounter Care Teams Freelance Court Stenographer Relationship Specialty Start Date End Date Servando Torre MD [address] [facility] [address] [place] [address] PCP - General Family Medicine 06/19/22 Mariela Denton MD [address] [place] [address] Referring Physician Gastroenterology 06/19/22 documented as of this encounter
--- OUTSIDE RECORDS SUMMARY | 2024-07-12 19:46 | XMS_ITS | Encounter Summary ---
Author Organization [facility] Address [address] [place] [address] Phone Care Team Providers Care Adult Ministries Director Name Role Phone Servando Torre MD Primary Care Provider [phone] Mariela Denton MD Unavailable [phone] Lexis Barroso OD Unavailable [phone] Encounter Details Date Type Department Care Team (Late st Contact Info) Description 10/10/2022 9:45 AM CDT Office Visit [facility] Gastroenterology [address] [facility] [facility] [address] 12th [place] [address] [place] [address] Mariela Denton MD [address] [place] [address] Ulcerative colitis with complication, unspecified location (HCC) (Primary Dx); High risk medications (not [...] on file 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 Gender Identity Female 04/05/2022 6:17 PM CDT Sexual Orientation Straight 04/05/2022 6: 17 PM CDT documented as of this encounter Last Filed Vital Signs Vital Sign Reading Time Taken Comments Blood Pressure 147/77 10/10/2022 9:58 AM CDT Pulse 67 10/10/2022 9:58 AM CDT Temperature 36.5 ??C (97.7 ??F) 10/10/2022 9:58 AM CD T Respiratory Rate - - Oxygen Saturation - - Inhaled Oxygen Concentration - - Weight 68.9 kg (152 lb) 10/10/2022 9:58 AM CDT Height 157.5 cm (5' 2 ) 10/10/2022 9:58 AM CDT Body Mass Index 27.8 10/10/2022 9:58 AM CDT documented in this encounter Patient Instructions * Patient Instructions* Lexis Renteria RN - 10/10/2022 9:45 AM CDT Return office visit is needed in 6 months Please start taking a Calcium supplement- available over the counter (Os-Jluis, Viactiv, Caltrate or Citracal) Coty with Dr. Denton's office will contact you to schedule a colonoscopy( same day as bone health, if possible) A referral will be placed for [facility]. You will be contacted for scheduling. A referral will be placed for [facility]. [facility] [address] [place] [id number] documented in this encounter Progress Notes * Mariela Denton MD - 10/10/2022 12:00 AM CDT PATIENT NAME: RADHA ALLEN : 1945 PAULINA: 10/10/[birth year]22 Reason for Visit: Follow-up on initial visit in May 2022 for san-ulcerative colitis, which at that time she was still having at least 8 to 10 bowel movements a day, and since, she has been initiated on Entyvio. Current Medications: 1. Ferrous sulfate daily. 2. Metformin daily. 3. Azathioprine 100 mg daily. 4. Apriso 4 capsules p.o. daily. 5. Pravachol daily. 6. Pantoprazole daily. 7. Metoprolol daily. 8. Norvasc daily. 9. Vitamin D 2000 units daily. 10. Entyvio 300 mg every 8 weeks. 11. daily. Problem List: 1. San-ulcerative colitis diagnosed in February 2020, when she presented with abdominal pain and was found to have chronic san-ulcerative colitis; she was initially treated with steroids as well as mesalamine, but unfortunately, because of cost as well as miscommunication, the patient ultimately did not respond to mesalamine and was started on low-dose azathioprine in December 2021 (50 mg), her Apriso was stopped, and the patient's dose of azathioprine had been increased to 100 mg in March 2022. When I initially met the patient, she had only been on that higher dose of azathioprine for about 2 months, but had not noticed any difference in her symptoms of urgency or frequency. We initiated the patient on mesalamine, and ultimately initiated her on Entyvio. 2. Prediabetes. 3. History of a fracture of the hip that was complicated by the fact that she was on Fosamax and did not heal completely. 4. Asymmetric sensorineural hearing loss. 5. Hypertension. History of Present Illness: Radha is a blanca 77-year-old female with a past medical history of san- ulcerative colitis, who presents today for follow-up. Since I last saw the patient in clinic for the first time in May 2022, the patient has been initiated in Entyvio. She reports a significant improvement of her symptoms,and while now maintained on a combination of azathioprine 100 mg and Entyvio, she is currently having one bowel movement a day. The patient reports that she feels much better and still occasionally has episodes of incontinence, but this tends to be more dietary related. When she goes out and eats with friends or eats new food out, she tends to have a higher richer fat meal, and she will have a loose bowel movement. The patient in the past did have a diagnosis of osteopenia and had significant problem with a hip fracture while on Fosamax. She is currently not on calcium or on vitamin D. The patient otherwise has no other complaints. Physical Examination: Vital Signs: Today, her blood pressure is 147/77, pulse 67, weight of 152 pounds. General: She is a well-appearing white female, who presents with her daughter to this visit, in no apparent distress. Abdomen: Soft, nontender, nondistended, with good bowel sounds. Extremities: No edema. Assessment: Radha is a blanca 77-year-old female with a past medical history of san- ulcerative colitis, currently maintained on Entyvio and azathioprine, who presents today for follow-up. At this point, Radha is doing so much better on this combination, but I am not certain she actuallyneeds the azathioprine. When I first met her, she had just been switched over to the higher dose ofazathioprine in March, and so she had just started the third month of the higher dose of azathioprine. We do know that metabolites were appropriate, but she tells me that she did not start feeling better until she received her third dose of Entyvio. This would be more suggestive of the fact that Entyvio was the reason she was responding and not necessarily the azathioprine. I told her that wewill plan on doing a colonoscopy, and if in fact she is in remission, I would like to decrease slowly the azathioprine. I would bring her back down to 50 mg for 6 months, and then have her off, and as long as her symptoms do not recur, we could then keep her off of the azathioprine and use monotherapy. Osteopenia. I told the patient that she may need additional medicine to help with her osteopenia, but what I would like to do is add calcium as well as vitamin D to her regimen. We will make a referral to [facility], and hopefully she can see me when she has her colonoscopy done this summer. The patient does have some skin tags noted on her neck as well as her eye, and I told her that we can make a referral to Dermatology. Lastly, the patient is taking ferrous sulfate, but I do not think she actually needs to be on it, as she is not anemic anymore. I told the patient to talk to her primary care doctor, but I would likeher to stop her iron. The patient otherwise was given ample opportunity to ask any questions, and her questions were answered. My total encounter time on 10/10/2022 was 30minutes which was spent in the activities documented above. This includes time spent prior to the visit and after the visit in direct care of the patient. This time does not include time spent in any separately reportable services. ELECTRONICALLY SIGNED - 10/10/2022 05:24 PM Mariela Denton MD, MPH carpet installer Division of Gastroenterology AG/lulu documented in this encounter Plan of Treatment Not on file documented as of this encounter Results * (ABNORMAL) Hemoglobin A1c (10/10/2022 11:14 AM CDT) HbA1c 6.7(H) 5.1 - 5.6 % [facility] Comment: HBA1C 5.1 - 5.6 = NORMAL HBA1C 5.7 - 6.4 = PREDIABETES HBA1C >=6.5 = PROVISIONAL DIAGNOSIS OF DIABETES Estimated Average Glucose 146 mg/dL [facility] Blood 10/10/2022 11:1 4 AM CDT 10/10/2022 12:04 PM CDT us Mariela Denton MD LAB BLOOD ORDERABLE S Final Result [facility] * (ABNORMAL) [...] et al. IFTIKHAR Cardiol. 2020;5(5):540-548 or Tristian SINGH et al. IFTIKHAR Cardiol. 2018;3(8):749-753. ??Consider the use of non-HDL-c to estimate atherosclerotic cardiovascular disease risk. The Friedewald equation is accurate in most patients when triglycerides are less than 150 mg/dL. ??Consider the use of non-HDL-C or Apo B to help estimate atherosclerotic cardiovascular diesase risk if triglycerides are elevated. Blood 10/10/2022 11:1 4 AM CDT 10/10/2022 12:04 PM CDT Narrative [facility] - 10/10/2022 1:25 PM CDT Current interpretive data was last updated June 29, 2021. us Mariela Denton MD LAB BLOOD ORDERABLE S Final Result [facility] * (ABNORMAL) [...] [facility] * CBC with auto differential (10/10/2022 11:14 [...] MD LAB BLOOD ORDERABLE S Final Result [facility] documented in this encounter Visit Diagnoses Diagnosis Ulcerative colitis with complication, unspecified location (HCC)- Primary High risk medications (not anticoagulants) long-term use Encounter for long-term (current) use of other medications Healthcare maintenance Ulcerative colitis with complication, unspecified location (HCC) High risk medications (not anticoagulants) long-term use Encounter for long-term (current) use of other medications Healthcare maintenance documented in this encounter Additional Health Concerns Infection Onset Date Last Indicated Resolved Time COVID: Recovered Comment:Added based on recent COVID infection. 07/13/2022 07/26/2022 10/11/2022 3:05 AM C DT documented as of this encounter Care Teams Adult Ministries Director Relationship Specialty Start Date End Date Servando Torre MD [address] [facility] [address] [place] [address] PCP - General Family Medicine 06/19/22 Mariela Denton MD [address] [place] [address] Referring Physician Gastroenterology 06/19/22 Lexis Barroso OD [address] [place] [id number] Motorcycle Racer 09/19/22 documented as of this encounter
--- OUTSIDE RECORDS SUMMARY | 2024-07-12 19:46 | XMS_ITS | Encounter Summary ---
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 Gender Identity Female 04/05/2022 6:17 PM CDT Sexual Orientation Straight 04/05/2022 6: 17 PM CDT documented as of this encounter Plan of Treatment Not on file documented as of this encounter Visit Diagnoses Diagnosis Encounter for vaccination- Primary documented in this encounter Orders Immunization/Injection Count Last Ordered Date First Ordered Date PFIZER SARS-COV-2 BIVALENT B OOSTER VACCINATION (12+ YRS) 1 05/30/2022 documented in this encounter Care Teams Biomedical Photographer Relationship Specialty Start Date End Date Jared Abrams MD [address] [place] [id number] PCP - General Internal Medicine 05/30/22 06/18/22 documented as of this encounter
--- OUTSIDE RECORDS SUMMARY | 2024-07-12 19:46 | XMS_ITS | Encounter Summary ---
Author Organization [facility] Address [address] [place] [address] Phone Care Team Providers Care Marine Electronics Repairer Name Role Phone Jared Abrams MD Primary Care Provider [phone] Encounter Details Date Type Department Care Team (Late st Contact Info) Description 05/30/2022 Orders Only [facility]enter[facility] [address] [facility] 12th [place] [address] [place] [address] Coty Sorensen Social History Tobacco Use Types Packs/Day Years Used Date Smoking Tobacco: Never Comments Unknown Sex and Gender Information Value Date Recorded Sex Assigned at Not on file 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
--- OUTSIDE RECORDS SUMMARY | 2024-07-12 19:46 | XMS_ITS | Encounter Summary ---
Author Organization [facility] Address [address] [facility] [address] [place] [address] Care Team Providers Care Adobe Maker Name Role Phone Servando Torre MD Primary Care Provider [phone] Mariela Denton MD Unavailable [phone] [phone] Lexis Barroso OD Unavailable [phone]- [phone] Reason for Referral * Diagnostic Imaging (Routine) - Closed Specialty Diagnoses / Procedures Referred By Contac t Referred To Contact Diagnoses Screening for osteoporosis Asymptomatic menopausal state Procedures Dexa Axial Skeleton Bone Density 1 or 2 Site Servando Torre MD [address] [place] [address] [address] [place] [address] Phone: tel: fax: External Order Referral ID Status Reason Start Date Expiration Date Visits Re quested Visits Authorized [id number] Closed 09/19/2022 10/19/2023 1 1 MENT MILL TENDER Reason for Visit * Reason Comments Follow-up 3 month f/u Encounter Details Date Type Department Care Team (Late Contact Info) Description 09/19/2022 2:00 PM OINTMENT MILL TENDER Office Visit [facility] Primary Care at [address] [phone] Servando Torre MD [address] [facility] [address] [place] [address] Type 2 diabetes mellitus with hyperglycemia, without long-term current use of insulin (CMS/HCC) (HCC) (Primary Dx); Mixed hyperlipidemia; Balance problem; Hypertension, essential; Screening for osteoporosis; Asymptomatic menopausal state Social History Tobacco Use Types Packs/Day Years [...] feel afraid or unsafe? Denies 03/07/2023 Comments Unknown Sex and Gender Information Value Date Recorded Sex Assigned at Not on file Legal Sex Female 9:30 AM OINTMENT MILL TENDER Gender Identity Female 04/05/2022 6:17 PM CDT Sexual Orientation Straight 04/05/2022 6: 17 PM CDT documented as of this encounter Last Filed Vital Signs Vital Sign Reading Time Taken Comments Blood Pressure 130/74 09/19/2022 2:13 PM OINTMENT MILL TENDER Pulse 77 09/19/2022 2:13 PM OINTMENT MILL TENDER Temperature 35.9 ??C (96.7 ??F) 09/19/2022 2:13 PM CS T Respiratory Rate 16 09/19/2022 2:13 PM OINTMENT MILL TENDER Oxygen Saturation 97% 09/19/2022 2:13 PM OINTMENT MILL TENDER Inhaled Oxygen Concentration - - Weight 69.9 kg (154 lb) 09/19/2022 2:13 PM OINTMENT MILL TENDER Height 157.5 cm (5' 2 ) 09/19/2022 2:13 PM OINTMENT MILL TENDER Body Mass Index 28.17 09/19/2022 2:13 PM OINTMENT MILL TENDER documented in this encounter Patient Instructions * Patient Instructions* Regina Toscano MA - 09/19/2022 2:00 PM OINTMENT MILL TENDER Increasing metformin to 850 mg twice daily, a1c increased to 7.2% Continuing current regimen otherwise Continue to avoid starches, potatoes, other carb-rich foods Bone density study ordered (to rule out osteoporosis), at [facility] GET 3 MONTHS LAB DONE IN NOVEMBER Thanks for coming in today! My medical assistants and I are thankful you have trusted us with your care, and hope that you received EXCELLENT care today! Please do not hesitate to call if you have any questions or concerns at [phone]. You may receive a phone call, text, MYCHART message, or e-mail asking about your care today. We would love to hear your feedback on how EXCELLENT your care wastoday! Wishing you better health, always. Dr. Torre MENT MILL TENDER MENT MILL TENDER MENT MILL TENDER * Attachments The following attachments cannot be sent through Care Everywhere. * Memory Loss in Older Adults (General Information) (Mauritanian) documented in this encounter Ordered Prescriptions Prescription Sig Dispense Quantity Refills Last Filled Start Date End Date metFORMIN (GLUCOPHAGE) 850 mg tabletIndications: Type 2 diabetes mellitus with hyperglycemia, without long-term current use of insulin (HCC) Take 1 tablet (850 mg total) by mouth 2 (two) times a day with meals 60 tablet 2 09/19/2022 12/20/2022 documented in this encounter Progress Notes * Servando Torre MD - 09/19/2022 2:00 PM CST Images from the original note were not included. Subjective/Objective Patient ID: Lisa Allen is a 77 y.o. female. Chief Complaint Follow-up (3 month f/u) Entyvio infusions are going well. She is getting PT at [email or web address], feels it is helping. Her arm is doing better. Diabetes She presents for her follow-up diabetic visit. She has type 2 diabetes mellitus. Her disease coursehas been worsening. There are no hypoglycemic associated symptoms. Pertinent negatives for hypoglycemia include no headaches or sweats. Associated symptoms include blurred vision. Pertinent negativesfor diabetes include no chest pain, no fatigue, no foot paresthesias, no foot ulcerations, no polydipsia, no polyphagia, no polyuria, no visual change, no weakness and no weight loss. There are no hypoglycemic complications. Risk factors for coronary artery disease include sedentary lifestyle, post-menopausal, diabetes mellitus, dyslipidemia and hypertension. Current diabetic treatment includes oral agent (monotherapy). She is compliant with treatment all of the time. Her weight is stable. She is following a diabetic and generally healthy diet. Meal planning includes avoidance of concentratedsweets. She has not had a previous visit with a dietitian. She rarely participates in exercise. Herhome blood glucose trend is fluctuating minimally. Her overall blood glucose range is 140-180 mg/dl. An JACEY inhibitor/angiotensin II receptor emily is being taken. She does not see a slab lifting supervisor.Eyeexam is current. Hypertension This is a chronic problem. Associated symptoms include blurred vision. Pertinent negatives include no chest pain, headaches, malaise/fatigue, neck pain, palpitations, peripheral edema, PND, shortnessof breath or sweats. Past treatments include calcium channel blockers and beta blockers. Compliance problems include diet and exercise. There is no history of kidney disease, CAD/NE or heart failure. Hyperlipidemia This is a chronic problem. Exacerbating diseases include diabetes. She has no history of obesity. Pertinent negatives include no chest pain or shortness of breath. Current antihyperlipidemic treatment includes statins. Risk factors for coronary artery disease include hypertension, dyslipidemia, diabetes mellitus, post-menopausal and a sedentary lifestyle. Current Outpatient Medications: amLODIPine (NORVASC) 5 mg [...] due 08/2022., Disp: 90 tablet, Rfl: 0 cholecalciferol (VITAMIN D-3) 2000 unit tablet, Take 1 tablet (2,000 Units total) by mouth daily Low Vitamin D level from 05/30/2022., Disp: 90 tablet, Rfl: 3 ferrous sulfate ER 324 mg (65 mg iron) EC tablet, Take 65 mg by mouth, Disp: , Rfl: mesalamine (APRISO) [...] mouth daily, Disp: 90 tablet, Rfl: [address]/ER (UCERIS) 9 mg tablet, delayed & ext.release, Take 1 tablet (9 mg total) by mouth daily (Patient not taking: Reported on 09/19/2022), Disp: 30 tablet, Rfl: 0 diphenoxylate-atropine (LOMOTIL) 2.5-0.025 mg per tablet, Take 1 tablet by mouth 2 (two) times a day (Patient not taking: Reported on 09/19/2022), Disp: , Rfl: Lactobacillus acidophilus (PROBIOTIC ORAL), Take by mouth, Disp: , Rfl: Saccharomyces boulardii (FLORASTOR) 250 mg capsule, Take by mouth (Patient not taking: Reported on 09/19/2022), Disp: , Rfl: Review of Systems Constitutional: Negative for fatigue, malaise/fatigue and weight loss. Eyes: Positive for blurred vision. Respiratory: Negative for shortness of breath. Cardiovascular: Negative for chest pain, palpitations and PND. Endocrine: Negative for polydipsia, polyphagia and polyuria. Musculoskeletal: Negative for neck pain. Neurological: Negative for weakness and headaches. BP 130/74 (BP Location: Left arm, Patient Position: Sitting) Pulse 77 Temp (!) 35.9 ??C (96.7 ??F) (Temporal) Resp 16 Ht 157.5 cm (5' 2 ) Wt 69.9 kg (154 lb) SpO2 97% BMI 28.17 kg/m?? Physical Exam Vitals reviewed. Constitutional: Appearance: She is overweight. HENT: Head: Normocephalic and atraumatic. Right Ear: Tympanic membrane, ear canal and external ear normal. There is no impacted cerumen. Left Ear: Tympanic membrane, ear canal and external ear normal. There is no impacted cerumen. Neck: Vascular: No carotid bruit. Cardiovascular: Rate and Rhythm: Normal rate and regular rhythm. Heart sounds: No murmur heard. No gallop. Pulmonary: Breath sounds: No wheezing, rhonchi or rales. Abdominal: Palpations: Abdomen is soft. Tenderness: There is no abdominal tenderness. Musculoskeletal: Right lower leg: No edema. Left lower leg: No edema. Neurological: Mental Status: She is alert and oriented to person, place, and time. Mental status is at baseline. Psychiatric: Mood and Affect: Mood normal. Cognition and Memory: Cognition is not impaired. She exhibits impaired recent memory (notes some dificulty with names, but no loss of direction, forgetting the stove, etc). Assessment/Plan Diagnoses and all orders for this visit: Type 2 diabetes mellitus with hyperglycemia, without long-term current use of insulin ([facility]) ([facility]) (Primary) - POCT hemoglobin A1c - metFORMIN (GLUCOPHAGE) 850 mg tablet; Take 1 tablet (850 mg total) by mouth 2 (two) times a day with meals - Hemoglobin A1c; Future Mixed hyperlipidemia Comments: continuing pravastatin Orders: - Lipid panel; Future Balance problem Comments: continuing to work with PT Hypertension, essential Comments: continuing amlodipine, tmetoprolol BP is borderline today, but mildly improved Orders: - CBC with auto differential; Future - Comprehensive metabolic panel; Future Screening for osteoporosis - Dexa Axial Skeleton Bone Density 1 or 2 Site; Future Asymptomatic menopausal state - Dexa Axial Skeleton Bone Density 1 or 2 Site; Future Servando Torre MD This office note has been partially dictated using M*Modal software, and as a result portions of the record may have been created with this software. Occasional wrong-word or '[id number]' substitutions may have occurred due to the inherent limitations of voice recognition software. Read the chartcarefully and recognize, using context, where substitutions have occurred. MENT MILL TENDER documented in this encounter Miscellaneous Notes * Addendum Note - Naomie Thomas CLT - 09/19/2022 2:00 PM CSTAddended by: NAOMIE THOMAS on: 03/21/2023 03:19 PM Modules accepted: Orders * Addendum Note - Naomie Thomas CLT - 09/19/2022 2:00 PM CSTAddended by: NAOMIE THOMAS on: 03/21/2023 03:19 PM Modules accepted: Orders * Addendum Note - Naomie Thomas CLT - 09/19/2022 2:00 PM CSTAddended by: NAOMIE THOMAS on: 03/21/2023 03:19 PM Modules accepted: Orders documented in this encounter Plan of Treatment Not on file documented as of this encounter Procedures Procedure Name Priority Date/Time Associated Diagnosis Comments POCT HEMOGLOBIN A1C Routine 09/19/2022 2 :51 PM OINTMENT MILL TENDER Type 2 diabetes mellitus with hyperglycemia, without long-term current use of insulin ([facility]/HCC) (HCC) documented in this encounter Results * (ABNORMAL) CBC with auto differential (03/21/2023 3:20 PM CDT) WBC 7.0 3.8 - 9.9 K/cumm [facility] Hgb 13.6 11.9 - 15.5 g/dL [facility] Hct 43.5 35.6 - 45.5 % [facility] Plt 313 150 - 400 K/cumm [facility] CH MPV 9.7 9.1 - 12.3 fL [facility] RBC 4.52 3.90 - 5.20 M/cumm [facility] CH MCV 96.2 81.3 - 96.4 fL [facility] MCH 30.1 27.1 - 33.3 pg [facility] MCHC 31.3(L) 32.3 - 35.7 g/dL [facility] CH RDW CV 15.6(H) 11.1 - 14.9 % [facility] CH RDW SD 54.9(H) 35.7 - 48.1 fL [facility] NRBC abs 0.02(H) 0.00 - 0.01 K/cumm [facility] Blood 03/21/2023 3:20 PM CDT 03/21/2023 6:04 PM CDT Servando Torre MD LAB BLOOD ORDERABLES Final Result [facility] [id number] [place] [address] * (ABNORMAL) Comprehensive metabolic panel (03/21/2023 3:20 PM CDT) Sodium 141 135 - 145 mmol/L [facility] Potassium, pl 3.9 3.3 - 4.9 mmol/L [facility] Chloride 102 97 - 110 mmol/L [facility] CO2 29 22 - 32 mmol/L [facility] Anion gap 10 2 - 15 mmol/L [facility] BUN 12 6 - 25 mg/dL [facility] Creatinine 0.79 0.60 - 1.10 mg/dL [facility] Glucose 130 70 - 199 mg/dL [facility] Comment: Interpretive Data Fasting glucose >/= 126 [...] BLOOD ORDERABLES Final Result Performing Organization Address City/State/[facility] Phone Number [facility] [phone] Department [place] [address] * (ABNORMAL) Lipid panel (03/21/2023 3:20 PM [...] revised on 2018. Triglycerides 191(H) <=149 mg/dL [facility] Comment: Interpretive Data Ages [...] 2018. LDL, calculated 89 <=129 mg/dL [facility]THEW Comment: Interpretive Data [...] on 2018. Non-HDL Cholesterol 127 mg/dL [facility] MATTHEW Comment: Interpretive Data Ages [...] on 2018. Chol/HDL ratio 3 [facility] Blood 03/21/2023 3:20 PM CDT 03/21/2023 6:04 PM CDT us Servando Torre MD LAB BLOOD ORDERABLES Final Result Performing Organization Address City/State/[facility] Phone Number [facility] [phone] Department [place] [address] * Dexa Axial Skeleton Bone Density 1 or 2 Site (12/12/2022 2:33 PM CDT) Anatomical Region Laterality Modality Body N/A Radiographic Keyanna ging Narrative 12/12/2022 3:00 PM CDT Patient Name: Lisa Allen Date of : 1945 Date of scan: 12/12/2022 Bone mineral density was performed on a [employer] Discovery Densitometer. ?? Based on machine cross-calibration [...] mineral density scan were prepared by Myah Salcedo) LORRIE ??who is accredited by the International Society of Clinical Densitometry. The overall patient assessment and scan interpretation were performed by Josep Mathew MD ??who is certified by the International Society of Clinical Densitometry. [id number] us Servando Torre MD IMG DXA PROCEDURES Final Re sult * POCT hemoglobin A1c (09/19/2022 2:51 PM OINTMENT MILL TENDER) Hemoglobin A1C, POC 7.2 % Blood 09/19/2022 2:51 PM OINTMENT MILL TENDER Servando Torre MD POINT OF CARE TEST ORDERABL ES Final Result documented in this encounter Visit Diagnoses Diagnosis Type 2 diabetes mellitus with hyperglycemia, without long-term current use of insulin (HCC)- Primary Mixed hyperlipidemia Balance problem Abnormality of gait Hypertension, essential Unspecified essential hypertension Screening for osteoporosis Special screening for osteoporosis Asymptomatic menopausal state Postmenopausal- Primary Asymptomatic postmenopausal status (age-related) (natural) Screening for osteoporosis Special screening for osteoporosis Asymptomatic menopausal state Osteopenia of multiple sites documented in this encounter Discontinued Medications Medication Sig Discontinue Reason Start Date End Da te metFORMIN (GLUCOPHAGE) 500 mg tablet Take 1 tablet (500 mg total) by mouth 2 (two) times a day with meals Reorder 07/02/2022 09/19/2022 documented as of this encounter Additional Health Concerns Infection Onset Date Last Indicated Resolved Time COVID: Recovered Comment:Added based on recent COVID infection. 07/13/2022 07/26/2022 10/11/2022 3:05 AM C DT documented as of this encounter Care Teams Adobe Maker Relationship Specialty Start Date End Date Servando Torre MD [address] [address] PCP - General Family Medicine 06/19/22 Mariela Denton MD [address] [place] [address] Referring Physician Gastroenterology 06/19/22 Lexis Barroso OD [address] [place] [address] Orthopaedic General 09/19/22 documented as of this encounter
--- OUTSIDE RECORDS SUMMARY | 2024-07-12 19:46 | XMS_ITS | Encounter Summary ---
Author Organization [facility] Healthcare Address [address] [place] [address] Care Team Providers Care Metal Container Maker Name Role Phone Servando Torre MD Primary Care Provider Mariela Denton MD Unavailable [phone] Encounter Details Date Type Department Care Team (Latest Contact Info) Description 07/03/2022 4:26 PM UTILITY PORTER - 07/03/2022 11:59 PM UTILITY PORTER Hospital Encounter [facility] [address] [place], [place] [id number] Cough, unspecified type; Positive self-administered antigen test for COVID-19 Discharge Disposition: Discharge to home or self [...] on file Legal Sex Female 9:30 AM UTILITY PORTER Gender Identity Female 04/05/2022 6:17 PM CDT Sexual Orientation Straight 04/05/2022 6: 17 PM CDT documented as of this encounter Medications at Time of Discharge cholecalciferol (VITAMIN D-3) 2000 unit tabletIndications :Low serum vitamin D Take 1 tablet (2,000 Units total) by mouth daily Low Vitamin D level from 05/30/2022. 90 tablet 3 05/31/2022 multivitamin capsule Take 1 capsule by mouth daily amLODIPine (NORVASC) 5 mg tablet Take 5 mg by mouth daily 2 aspirin 81 mg enteric coated tablet Take 1 tablet (81 mg total) by mouth daily 4 azaTHIOprine (IMURAN) 100 mg tabletIndications :Ulcerative colitis with complication, unspecified location (HCC) Take 1 tablet (100 mg total) by mouth daily Safety labs required every 3 months for med refills, next labs due 08/2022. 90 tablet 06/04/2022 3 benzonatate (TESSALON) 200 mg capsuleIndication s:Cough, unspecified type Take 1 capsule (200 mg total) by mouth 3 (three) times a day as needed for cough keep tessalon out of reach of children, especially children under the age of 10, due to possible serious risk such as if ingested by children under the age of 10. 30 capsule 07/03/[address]/ER (UCERIS) 9 mg tablet, delayed & ext.releaseIndica tions:Ulcerative Colitis Take 1 tablet (9 mg total) by mouth daily 30 tablet 05/30/2022 3 diphenoxylate-atr opine (LOMOTIL) 2.5-0.025 mg per tablet Take 1 tablet by mouth 2 (two) times a day 3 ferrous sulfate ER 324 mg (65 mg iron) EC tabletIndications :Iron Deficiency Anemia Take 65 mg by mouth 3 Lactobacillus acidophilus (PROBIOTIC ORAL) Take by mouth 06/11 3 mesalamine (APRISO) 0.375 gram 24 hr capsuleIndication s:Ulcerative Colitis Take 4 capsules (1.5 g total) by mouth daily 120 capsule 11 06/05/2022 3 metFORMIN (GLUCOPHAGE) 500 mg tablet Take 1 tablet (500 mg total) by mouth 2 (two) times a day with meals 180 tablet 3 07/02/2022 3 metoprolol tartrate (LOPRESSOR) 50 mg immediate release tablet Take 50 mg by mouth 2 (two) times a day 3 OneTouch Delica Plus Lancet 33 gauge misc USE TO CHECK BLOOD GLUCOSE TWICE DAILY NEEDED 04/12/2022 3 OneTouch Ultra Test strip USE TO TEST ONCE DAILY 04/12/[address] (PROTONIX) 40 mg EC tablet Take 40 mg by mouth daily 3 pravastatin (PRAVACHOL) 40 mg tablet Take 40 mg by mouth daily 3 Saccharomyces boulardii (FLORASTOR) 250 mg capsule Take by mouth 3 documented as of this encounter Discharge Disposition Disposition Code Departure Means Destination Discharge to home or self care documented in this encounter Miscellaneous Notes * Result Encounter Note - Reva Ireland MA - 07/03/2022 11:59 PM CST Viewed on [employer] ITY PORTER * Result Encounter Note - Tammy Meehan NP - 07/03/2022 7:58 PM CST Please notify patient of positive COVID-19 test. Patient should rest, stay hydrated, and take [id number] medications as needed. Per CDC guidelines, patient needs to isolate for 5 days from start a symptoms. If after 5 days patient is fever free and symptoms have improved, patient may come outof isolation as long as they continue to wear mask for the next 5 days. Monitor symptoms and if they worsen patient should follow-up with primary care doctor or in the ER if needed. ITY PORTER documented in this encounter Plan of Treatment Not on file documented as of this encounter Procedures Procedure Name Priority Date/Time Associated Diagnosis Comments INFLUENZA A/B, RSV, AND COVID-19 PCR Routine 07/03/2022 4:26 PM UTILITY PORTER Cough, unspecified type Positive self-administered antigen test for COVID-19 documented in this encounter Results * (ABNORMAL) Influenza A/B, RSV, and COVID-19 PCR Nasopharyngeal (07/03/2022 4:26 PM UTILITY PORTER) COVID-19 RNA Positive(A) Negative [facility] Influenza A RNA Negative Negative [facility] Influenza B RNA Negative Negative [facility] RSV RNA Negative Negative [facility] Comment: Interpretive data: This test is performed using the [employer] Xpert Xpress CoV-2/Flu/RSV plus assay. This is a multiplex, real-time reverse transcriptase PCR assay intended for the qualitative detection of nucleic acid from SARS-CoV-2, influenza A, influenza B, and respiratory syncytial virus. This assay has been reviewed by the FDA for Emergency Use Authorization (EUA). The performance characteristics have been verified by the performing laboratory. Results must be considered in the clinical context, and a negative result does not rule out infection. Interpretive Data last revised 2021. Nasopharyngeal 07/03/2022 4: 26 PM UTILITY PORTER 07/03/2022 6:41 PM UTILITY PORTER Narrative [facility] - 07/03/2022 7:57 PM UTILITY PORTER Is the Patient experiencing symptoms consistent with COVID?->Yes Date of Symptom Onset->06/25/22 Reason for testing?->Symptomatic Known exposure to confirmed or suspected COVID-19 case?->No Is the patient experiencing any symptoms consistent with COVID (eg. Fever, cough, shortness of breath)?->Yes What is the reason for testing?->Symptoms of COVID-19 in low-risk group (Batched) us Pricilla Olguin NP LAB MICROBIOLOGY - GENERAL ORDE SAPPHIRE Final Result [facility] [address] [address] Department [place] [address] documented in this encounter Visit Diagnoses Diagnosis Cough, unspecified type Positive self-administered antigen test for COVID-19 documented in this encounter Additional Health Concerns Infection Onset Date Last Indicated Resolved Time COVID: Suspected 07/03/2022 07/03/2022 07/03/2022 7:57 PM UTILITY PORTER COVID19 07/03/2022 07/03/2022 07/13/2022 3:05 AM UTILITY PORTER documented as of this encounter Care Teams Metal Container Maker Relationship Specialty Start Date End Date Servando Torre MD [address] [facility] [address] [place] [address] PCP - General Family Medicine 06/19/22 Mariela Denton MD [address] [place] [address] Referring Physician Gastroenterology 06/19/22 documented as of this encounter
--- OUTSIDE RECORDS SUMMARY | 2024-07-12 19:46 | XMS_ITS | Encounter Summary ---
Author Organization [facility] Address [address] [facility] [address] [place] [id number] Care Team Providers Care Outside Repairer Special Name Role Phone Servando Torre MD Primary Care Provider Mariela Denton MD Unavailable [phone] Reason for Visit * Reason Comments Cough Cough ongoing since positive covid on 06/25 Encounter Details Date Type Department Care Team (Late st Contact Info) Description 07/03/2022 4:00 PM CREDIT CARD INTERVIEWER Office Visit [facility] Out[facility] [address] [address] Pricilla Olguin NP [address] [place] [address] [address] [place] [address] Cough, unspecified type (Primary Dx); Positive self-administered antigen test for COVID-19 Social History Tobacco Use Types Packs/Day Years [...] on file Legal Sex Female 9:30 AM CREDIT CARD INTERVIEWER Gender Identity Female 04/05/2022 6:17 PM CDT Sexual Orientation Straight 04/05/2022 6: 17 PM CDT documented as of this encounter Last Filed Vital Signs Vital Sign Reading Time Taken Comments Blood Pressure 148/88 07/03/2022 4:09 PM CREDIT CARD INTERVIEWER Pulse 68 07/03/2022 4:09 PM CREDIT CARD INTERVIEWER Temperature 37 ??C (98.6 ??F) 07/03/2022 4:09 PM CREDIT CARD INTERVIEWER Respiratory Rate 18 07/03/2022 4:09 PM CREDIT CARD INTERVIEWER Oxygen Saturation 98% 07/03/2022 4:31 PM CREDIT CARD INTERVIEWER Inhaled Oxygen Concentration - - Weight 70.8 kg (156 lb) 07/03/2022 4:09 PM CREDIT CARD INTERVIEWER Height 157.5 cm (5' 2 ) 07/03/2022 4:09 PM CREDIT CARD INTERVIEWER Body Mass Index 28.53 07/03/2022 4:09 PM CREDIT CARD INTERVIEWER documented in this encounter Patient Instructions * Patient Instructions* Pricilla Olguin NP - 07/03/2022 4:00 PM CREDIT CARD INTERVIEWER Self-care: Rest as much as possible. Slowly start to do more each day. Take the medicines recommended by your doctor for fever, body aches, cough, or headaches. (Tylenol or Ibuprofen for aches/pains/fever as needed) (Antihistamines like Claritin or Benadryl as needed for drainage) (Delsym and cough drops/throat lozenges as needed for cough) Drink more liquids as directed to help thin and loosen mucus so it is easier to cough up. Liquids such as water, fruit juice, and broth also help keep you hydrated. Soothe a sore throat by gargling with warm salt water. Make salt water by dissolving ?? teaspoon salt in 1 cup warm water (8 ounces). Older children and adults can also use throat lozenges, ice chips, or sore throat spray. Use a humidifier or vaporizer to increase air moisture in your home. This may make it easier to breathe and help decrease coughing. Use saline nasal drops as directed to relieve congestion. Apply petroleum-based jelly around the outside of nostrils to decrease irritation from blowing yournose. DO NOT smoke or vape. Nicotine and other chemicals in cigarettes and cigars can make your symptoms worse. Monitor your symptoms: Seek medical attention right away if your symptoms get worse, such as if you are having difficulty breathing, shortness of breath, new confusion or inability to arouse, or bluish lips or face. If you have a pulse ox monitor at home, monitor your oxygen saturations with this device. If you find your Oxygen Saturation is falling 92% or below please notify your PCP right away or seek medical attention. Or if you experience fever uncontrolled with antipyretics, shortness of breath, chest discomfort, uncontrolled n/v/d If you have a medical emergency, call 911 and notify the EMS personnel that you have or are being evaluated for COVID-19. Put on a facemask before emergency medical services arrive -briefly discussed monoclonal antibody therapy, and antiviral therapy, call your PCP for more information and to see if you meet criteria for treatment. CDC Information: While waiting for your COVID-19 test result or if your COVID-19 test is positive: ISOLATE: Stay home except to get medical care! Separate yourself from other people and pets in [facility]: Do not go to work, school, or public areas, such as stores or social gatherings. Do not use public transportation. If available, stay in a separate bedroom and use a separate bathroom. Ask others to care for your pets. (If possible) Wear a facemask when around other people or pets. Cover your mouth and nose with a tissue when you cough or sneeze. If a tissue is not available, cough or sneeze into your upper sleeve (not your hands). Throw tissues away in trash-can that has a bag in it. Empty your trash daily. Always wash your hands after you throw away the tissue or garbage. If you test Positive for COVID-19 Given what we currently know about COVID-19 and the Omicron variant, CDC is shortening the recommended time for isolation from 10 days for people with COVID-19 to 5 days, if asymptomatic, followed by5 days of wearing a mask when around others. The change is motivated by science demonstrating that the majority of SARS-CoV-2 transmission occurs early in the course of illness, generally in the 1-2 days prior to onset of symptoms and the 2-3 days after. Therefore, people who test positive should isolate for 5 days and, if asymptomatic at that time, they may leave isolation if they can continue to mask for 5 days to minimize the risk of infecting others. Quarantine for those exposed to COVID-19 Additionally, [facility] is updating the recommended quarantine period for those exposed to COVID-19. For people who are unvaccinated or are more than six months out from their second mRNA dose (or more than 2 months after the J&J vaccine) and not yet boosted, CDC now recommends quarantine for 5 days followed by strict mask use for an additional 5 days. Alternatively, if a 5-day quarantine is not feasible, it is imperative that an exposed person wear a well-fitting mask at all times when around others for 10 days after exposure. Individuals who have received their booster shot do not need to quarantine following an exposure, but should wear a mask for 10 days after the exposure. For all those exposed, best practice would also include a test for SARS-CoV-2 at day 5 after exposure. If symptomsoccur, individuals should immediately quarantine until a negative test confirms symptoms are not attributable to COVID-19. Isolation relates to behavior after a confirmed infection. Isolation for 5 days followed by wearinga well-fitting mask will minimize the risk of spreading the virus to others. Quarantine refers to the time following exposure to the virus or close contact with someone known to have COVID-19. Both updates come as the Omicron variant continues to spread throughout the [place] and reflects the current science on when and for how long a person is maximally infectious. If You Were Exposed to Someone with COVID-19 (Quarantine) If you: Have been boosted OR Completed the primary series of Pfizer or Moderna vaccine within the last 6 months OR Completed the primary series of J&J vaccine within the last 2 months Wear a mask around others for 10 days. Test on day 5, if possible. If you develop symptoms get a test and stay home. If you: Completed the primary series of Pfizer or Moderna vaccine over 6 months ago and are not boosted OR Completed the primary series of J&J over 2 months ago and are not boosted OR Are unvaccinated Stay home for 5 days. After that continue to wear a mask around others for 5 additional days. If you can???t quarantine you must wear a mask for 10 days. Test on day 5 if possible. If you develop symptoms get a test and stay home If You Test Positive for COVID-19 (Isolate) Everyone, regardless of vaccination status. Stay home for 5 days. If you have no symptoms or your symptoms are resolving after 5 days, you can leave your house. Continue to wear a mask around others for 5 additional days. If you have a fever, continue to stay home until your fever resolves. IT CARD INTERVIEWER documented in this encounter Ordered Prescriptions Prescription Sig Dispense Quantity Refills Last Filled Start Date End Date benzonatate (TESSALON) 200 mg capsuleIndications :Cough, unspecified type Take 1 capsule (200 mg total) by mouth 3 (three) times a day as needed for cough keep tessalon out of reach of children, especially children under the age of 10, due to possible serious risk such as if ingested by children under the age of 10. 30 capsule 07/03/2022 3 documented in this encounter Progress Notes * Pricilla Olguin NP - 07/03/2022 4:00 PM CST Images from the original note were not included. Subjective/Objective Patient ID: Lisa Allen is a 77 y.o. female. Chief Complaint Cough (Cough ongoing since positive covid on 06/25 ) Patient presents to convenient care with granddaughter due to positive home COVID test on 06/25. Patient states she did not have any symptoms on the but was tested due to 3 other people at [facility] coming down with COVID. Patient states she tested positive and then 2 days later on started with a cough. Patient denies any other symptoms currently states she just has a nonproductive cough. Patient is vaccinated for COVID patient states her daughters were concerned and wantedher to get seen and have someone listen to her lungs. Review of Systems Constitutional: Negative for appetite change, chills, diaphoresis, fatigue and fever. HENT: Negative for congestion, ear discharge, ear pain, postnasal drip, rhinorrhea, sinus pressure,sinus pain, sneezing and sore throat. Respiratory: Positive for cough. Negative for chest tightness, shortness of breath and wheezing. Cardiovascular: Negative for chest pain. Gastrointestinal: Negative for abdominal pain, diarrhea, nausea and vomiting. Musculoskeletal: Negative for myalgias, neck pain and neck stiffness. Skin: Negative for rash. Neurological: Negative for dizziness and headaches. Hematological: Negative for adenopathy. Physical Exam Vitals and nursing note reviewed. Constitutional: General: She is awake. She is not in acute distress. Appearance: Normal appearance. HENT: Head: Normocephalic and atraumatic. Right Ear: Tympanic membrane and ear canal normal. Left Ear: Tympanic membrane and ear canal normal. Nose: No congestion or rhinorrhea. Right Sinus: No maxillary sinus tenderness or frontal sinus tenderness. Left Sinus: No maxillary sinus tenderness or frontal sinus tenderness. Mouth/Throat: Lips: [place]. Mouth: Mucous membranes are moist. Tongue: Tongue does not deviate from midline. Pharynx: Uvula midline. No pharyngeal swelling, oropharyngeal exudate, posterior oropharyngeal erythema or uvula swelling. Tonsils: No tonsillar exudate or tonsillar abscesses. Eyes: General: Lids are normal. Pupils: Pupils are equal, round, and reactive to light. Cardiovascular: Rate and Rhythm: Normal rate and regular rhythm. Pulses: Normal pulses. Heart sounds: Normal heart sounds. Pulmonary: Effort: Pulmonary effort is normal. No respiratory distress. Breath sounds: Normal breath sounds. No decreased breath sounds, wheezing, rhonchi or rales. Comments: Nonproductive cough noted Musculoskeletal: Cervical back: Full passive range of motion without pain, normal range of motion and neck supple. Lymphadenopathy: Cervical: No cervical adenopathy. Skin: General: Skin is warm and dry. Neurological: Mental Status: She is alert and oriented to person, place, and time. Gait: Gait normal. Psychiatric: Behavior: Behavior is cooperative. Vitals: 07/03/22 1609 07/03/22 1631 BP: 148/88 BP Location: Right arm Patient Position: Sitting Pulse: 68 Resp: 18 Temp: 37 ??C (98.6 ??F) TempSrc: Oral SpO2: 96% 98% Weight: 70.8 kg (156 lb) Height: 157.5 cm (5' 2 ) No results found. 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 Prediabetes 06/19/2022 Ulcerative colitis (HCC) Current Outpatient Medications: amLODIPine (NORVASC) 5 mg tablet, Take 5 mg by mouth daily, Disp: , Rfl: aspirin 81 mg enteric coated tablet, Take 81 mg by mouth daily, Disp: , Rfl: azaTHIOprine (IMURAN) 100 mg tablet, Take 1 tablet (100 mg total) by mouth daily Safety labs required every 3 months for med refills, next labs due 08/2022., Disp: 90 tablet, Rfl: 0 benzonatate (TESSALON) 200 mg capsule, Take 1 capsule (200 mg total) by mouth 3 (three) times a dayas needed for cough keep tessalon out of reach of children, especially children under the age of 10, due to possible serious risk such as if ingested by children under the age of 10., Disp: 30 capsule, Rfl: [address]/ER (UCERIS) 9 mg [...] (LOPRESSOR) 50 mg immediate release tablet, Take 50 mg by mouth 2 (two) times aday, Disp: , Rfl: multivitamin capsule, Take 1 capsule by mouth daily, Disp: , Rfl: OneTouch Delica Plus Lancet 33 gauge misc, USE TO CHECK BLOOD GLUCOSE TWICE DAILY NEEDED, Disp: , Rfl: OneTouch Ultra Test strip, USE TO TEST ONCE DAILY, Disp: , Rfl: pantoprazole DR (PROTONIX) 40 mg EC tablet, Take 40 mg by mouth daily, Disp: , Rfl: pravastatin (PRAVACHOL) 40 mg tablet, Take 40 mg by mouth daily, Disp: , Rfl: Saccharomyces boulardii (FLORASTOR) 250 mg capsule, Take by mouth, Disp: , Rfl: No Known Allergies Social History Tobacco Use Smoking status: Never Smokeless tobacco: Never Substance and Sexual Activity Drug use: Never Sexual activity: Not on file Alcohol Use: Not At Risk Frequency of Alcohol Consumption: Never Average Number of Drinks: Patient does not drink Frequency of Binge Drinking: Never Past Surgical History: Procedure Laterality Date PARTIAL HIP ARTHROPLASTY Left 2015 RETINAL DETACHMENT SURGERY Right detached retina Assessment/Plan Diagnoses and all orders for this visit: Cough, unspecified type (Primary) - Influenza A/B, RSV, and COVID-19 PCR Nasopharyngeal; Future - benzonatate (TESSALON) 200 mg capsule; Take 1 capsule (200 mg total) by mouth 3 (three) times a day as needed for cough keep tessalon out of reach of children, especially children under the age of 10, due to possible serious risk such as if ingested by children under the age of 10. Positive self-administered antigen test for COVID-19 - Influenza A/B, RSV, and COVID-19 PCR Nasopharyngeal; Future Discussed in detail with patient to monitor for worsening symptoms, such as shortness of breath wheezing etc.. Or if symptoms are persisting and lasting over 2-3 weeks recommend follow-up with Dr. Torre or ED. Patient Education: Self-care: Rest as much as possible. Slowly start to do more each day. Take the medicines recommended by your doctor for fever, body aches, cough, or headaches. (Tylenol or Ibuprofen for aches/pains/fever as needed) (Antihistamines like Claritin or Benadryl as needed for drainage) (Delsym and cough drops/throat lozenges as needed for cough) Drink more liquids as directed to help thin and loosen mucus so it is easier to cough up. Liquids such as water, fruit juice, and broth also help keep you hydrated. Soothe a sore throat by gargling with warm salt water. Make salt water by dissolving ?? teaspoon salt in 1 cup warm water (8 ounces). Older children and adults can also use throat lozenges, ice chips, or sore throat spray. Use a humidifier or vaporizer to increase air moisture in your home. This may make it easier to breathe and help decrease coughing. Use saline nasal drops as directed to relieve congestion. Apply petroleum-based jelly around the outside of nostrils to decrease irritation from blowing yournose. DO NOT smoke or vape. Nicotine and other chemicals in cigarettes and cigars can make your symptoms worse. Monitor your symptoms: Seek medical attention right away if your symptoms get worse, such as if you are having difficulty breathing, shortness of breath, new confusion or inability to arouse, or bluish lips or face. If you have a pulse ox monitor at home, monitor your oxygen saturations with this device. If you find your Oxygen Saturation is falling 92% or below please notify your PCP right away or seek medical attention. Or if you experience fever uncontrolled with antipyretics, shortness of breath, chest discomfort, uncontrolled n/v/d If you have a medical emergency, call 911 and notify the EMS personnel that you have or are being evaluated for COVID-19. Put on a facemask before emergency medical services arrive -briefly discussed monoclonal antibody therapy, and antiviral therapy, call your PCP for more information and to see if you meet criteria for treatment. CDC Information: While waiting for your COVID-19 test result or if your COVID-19 test is positive: ISOLATE: Stay home except to get medical care! Separate yourself from other people and pets in [facility]: Do not go to work, school, or public areas, such as stores or social gatherings. Do not use public transportation. If available, stay in a separate bedroom and use a separate bathroom. Ask others to care for your pets. (If possible) Wear a facemask when around other people or pets. Cover your mouth and nose with a tissue when you cough or sneeze. If a tissue is not available, cough or sneeze into your upper sleeve (not your hands). Throw tissues away in trash-can that has a bag in it. Empty your trash daily. Always wash your hands after you throw away the tissue or garbage. If you test Positive for COVID-19 Given what we currently know about COVID-19 and the Omicron variant, [facility] is shortening the recommended time for isolation from 10 days for people with COVID-19 to 5 days, if asymptomatic, followed by5 days of wearing a mask when around others. The change is motivated by science demonstrating that the majority of SARS-CoV-2 transmission occurs early in the course of illness, generally in the 1-2 days prior to onset of symptoms and the 2-3 days after. Therefore, people who test positive should isolate for 5 days and, if asymptomatic at that time, they may leave isolation if they can continue to mask for 5 days to minimize the risk of infecting others. Quarantine for those exposed to COVID-19 Additionally, [facility] is updating the recommended quarantine period for those exposed to COVID-19. For people who are unvaccinated or are more than six months out from their second mRNA dose (or more than 2 months after the J&J vaccine) and not yet boosted, CDC now recommends quarantine for 5 days followed by strict mask use for an additional 5 days. Alternatively, if a 5-day quarantine is not feasible, it is imperative that an exposed person wear a well-fitting mask at all times when around others for 10 days after exposure. Individuals who have received their booster shot do not need to quarantine following an exposure, but should wear a mask for 10 days after the exposure. For all those exposed, best practice would also include a test for SARS-CoV-2 at day 5 after exposure. If symptomsoccur, individuals should immediately quarantine until a negative test confirms symptoms are not attributable to COVID-19. Isolation relates to behavior after a confirmed infection. Isolation for 5 days followed by wearinga well-fitting mask will minimize the risk of spreading the virus to others. Quarantine refers to the time following exposure to the virus or close contact with someone known to have COVID-19. Both updates come as the Omicron variant continues to spread throughout the [place] and reflects the current science on when and for how long a person is maximally infectious. If You Were Exposed to Someone with COVID-19 (Quarantine) If you: Have been boosted OR Completed the primary series of Pfizer or Moderna vaccine within the last 6 months OR Completed the primary series of J&J vaccine within the last 2 months Wear a mask around others for 10 days. Test on day 5, if possible. If you develop symptoms get a test and stay home. If you: Completed the primary series of Pfizer or Moderna vaccine over 6 months ago and are not boosted OR Completed the primary series of J&J over 2 months ago and are not boosted OR Are unvaccinated Stay home for 5 days. After that continue to wear a mask around others for 5 additional days. If you can???t quarantine you must wear a mask for 10 days. Test on day 5 if possible. If you develop symptoms get a test and stay home If You Test Positive for COVID-19 (Isolate) Everyone, regardless of vaccination status. Stay home for 5 days. If you have no symptoms or your symptoms are resolving after 5 days, you can leave your house. Continue to wear a mask around others for 5 additional days. If you have a fever, continue to stay home until your fever resolves. Disposition Treatment plan including expectations, follow up, and return precautions discussed with patient/parent, verbalizes understanding. Medication dosage, use, and potential adverse reactions discussed with patient/parent. Advised to follow up with PCP if symptoms do not resolve as expected or sooner if condition worsens. Signs/symptoms warranting ER evaluation reviewed. Patient and/or guardian was given an opportunity to ask questions, questions answered. Pricilla Olguin NP IT CARD INTERVIEWER documented in this encounter Plan of Treatment Not on file documented as of this encounter Results * (ABNORMAL) Influenza A/B, RSV, and COVID-19 PCR Nasopharyngeal (07/03/2022 4:26 PM CREDIT CARD INTERVIEWER) Pathologist [facility] COVID-19 RNA Positive(A) Negative [facility] Influenza A RNA Negative Negative [facility] Influenza B RNA Negative Negative [facility] RSV RNA Negative Negative [facility] Comment: Interpretive data: This test is performed using the [employer] Xpert Xpress CoV-2/Flu/RSV plus assay. This is [...] revised 2021. Nasopharyngeal 07/03/2022 4: 26 PM CREDIT CARD INTERVIEWER 07/03/2022 6:41 PM CREDIT CARD INTERVIEWER Narrative [facility] - 07/03/2022 7:57 PM CREDIT CARD INTERVIEWER Is the Patient experiencing symptoms consistent with COVID?->Yes Date of Symptom Onset->06/25/22 Reason for testing?->Symptomatic Known exposure to confirmed or suspected COVID-19 case?->No Is the patient experiencing any symptoms consistent with COVID (eg. Fever, cough, shortness of breath)?->Yes What is the reason for testing?->Symptoms of COVID-19 in low-risk group (Batched) Pricilla Olguin NP [facility] Final Result [facility] [address] Department [place] [address] documented in this encounter Visit Diagnoses Diagnosis Cough, unspecified type- Primary Positive self-administered antigen test for COVID-19 Cough, unspecified type Positive self-administered antigen test for COVID-19 documented in this encounter Additional Health Concerns Infection Onset Date Last Indicated Resolved Time COVID: Suspected 07/03/2022 07/03/2022 07/03/2022 7:57 PM CREDIT CARD INTERVIEWER documented as of this encounter Care Teams Outside Repairer Special Relationship Specialty Start Date End Date Servando Torre MD [address] [address] PCP - General Family Medicine 06/19/22 Mariela Denton MD [address] [place] [address] Referring Physician Gastroenterology 06/19/22 documented as of this encounter
--- OUTSIDE RECORDS SUMMARY | 2024-07-12 19:46 | XMS_ITS | Encounter Summary ---
Author Organization [facility] Address [address] [place] [address] Phone Care Team Providers Care Travel Agency Manager Name Role Phone Servando Torre MD Primary Care Provider [phone] Mariela Denton MD Unavailable [phone] Lexis Barroso OD Unavailable [phone] Encounter Details Date Type Department Care Team (Late st Contact Info) Description 11/07/2022 Orders Only [facility] Gastroenterology [address] 12[address] [place] [address] [place] [id number] [facility] current use of systemic steroids (Primary Dx); Arthralgia of hip, unspecified laterality; Ulcerative colitis with complication, unspecified location (HCC) [...] on file Legal Sex Female 9:30 AM AEROSOL SUPERVISOR Gender Identity Female 04/05/2022 6:17 PM CDT Sexual Orientation Straight 04/05/2022 6: 17 PM CDT documented as of this encounter Plan of Treatment Not on file documented as of this encounter Visit Diagnoses Diagnosis templer head current use of systemic steroids- Primary Arthralgia of hip, unspecified laterality Ulcerative colitis with complication, unspecified location (HCC) documented in this encounter Care Teams Travel Agency Manager Relationship Specialty Start Date End Date Servando Torre MD [address] [address] PCP - General Family Medicine 06/19/22 Mariela Denton MD [address] [place] [address] Referring Physician Gastroenterology 06/19/22 Lexis Barroso OD [address] [place] [id number] Social Media Specialist 09/19/22 documented as of this encounter
--- OUTSIDE RECORDS SUMMARY | 2024-07-12 19:46 | XMS_ITS | Encounter Summary ---
Author Organization [facility] Address [address] [place] [address] Care Team Providers Care City Detective Name Role Phone Servando Torre MD Primary Care Provider Mariela Denton MD Unavailable [phone] Reason for Visit * Reason Comments Establish Care POCKET SETTER-pt has ulcerative colitis and has a specialist appt. Also having shoulder pain Encounter Details Date Type Department Care Team (Late st Contact Info) Description 06/19/2022 3:15 PM FOUNDRY OPERATOR Office Visit [facility] Primary Care at [address] [address] Servando Torre MD [address] [place] [address] [address] [place] [address] Initial Medicare annual wellness visit (Primary Dx); Mixed hyperlipidemia Social History Tobacco Use Types Packs/Day Years [...] on file Legal Sex Female 9:30 AM FOUNDRY OPERATOR Gender Identity Female 04/05/2022 6:17 PM CDT Sexual Orientation Straight 04/05/2022 6: 17 PM CDT documented as of this encounter Last Filed Vital Signs Vital Sign Reading Time Taken Comments Blood Pressure 120/62 06/19/2022 3:29 PM FOUNDRY OPERATOR Pulse 67 06/19/2022 3:29 PM FOUNDRY OPERATOR Temperature 36.7 ??C (98 ??F) 06/19/2022 3:29 PM FOUNDRY OPERATOR Respiratory Rate 20 06/19/2022 3:29 PM FOUNDRY OPERATOR Oxygen Saturation 97% 06/19/2022 3:29 PM FOUNDRY OPERATOR Inhaled Oxygen Concentration - - Weight 70.8 kg (156 lb) 06/19/2022 3:29 PM FOUNDRY OPERATOR Height 157.5 cm (5' 2 ) 06/19/2022 3:29 PM FOUNDRY OPERATOR Body Mass Index 28.53 06/19/2022 3:29 PM FOUNDRY OPERATOR documented in this encounter Patient Instructions * Patient Instructions* Servando Torre MD - 06/19/2022 3:15 PM FOUNDRY OPERATOR Awaiting lipid panel Continuing current regimen, will hold vitamin B12 Skin tags can be removed if they are a problem Xray ordered today; possibly rotator cuff dysfunction Thanks for coming in today! My medical assistants and I are thankful you have trusted us with your care, and hope that you received EXCELLENT care today! Please do not hesitate to call if you have any questions or concerns at [phone]. You may receive a phone call, text, MYCHART message, or e-mail asking about your care today. We would love to hear your feedback on how EXCELLENT your care wastoday! Wishing you better health, always. Dr. Torre DRY OPERATOR DRY OPERATOR DRY OPERATOR documented in this encounter Progress Notes * Servando Torre MD - 06/19/2022 3:15 PM CST MEDICARE ANNUAL WELLNESS VISIT Lisa Komal Allen Medicare Health Risk Assessment Basic Information Do you have an advance directive, such as a living will or durable power of attorney law clerk?: Yes Do you have to strain or struggle to hear/understand conversations?: No Have you experienced any of the following problems currently or recently? Eating: No Grooming: No Bathing: No Walking: Yes Using the toilet: No Memory problems: Yes Difficulty speaking: No Pain: No Sexual Health: No Fatigue: No Have you experienced any of the following problems currently or recently? Laundry and/or housekeeping: No Handling Money: No Shopping: No Food preparation: No Transportation: No Taking and/or getting your own medications: No Do you use prescription drugs that are not prescribed for you?: No Her PCP retired in February. She is following up with GI. Planning to start Entyvio soon; also is on mesalamine but will be coming off of the [facility],. 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 Prediabetes 06/19/2022 Ulcerative colitis (HCC) Past Surgical History: Procedure Laterality Date PARTIAL HIP ARTHROPLASTY Left 2015 RETINAL DETACHMENT SURGERY Right detached retina Family History: Family History Problem Relation Age of Onset Atrial fibrillation Mother Breast cancer Mother Stroke Mother Cancer Father Social History: Social History Tobacco Use Smoking status: Never Smokeless tobacco: Never Substance and Sexual Activity Drug use: Never Sexual activity: None Alcohol Use: Not At Risk Frequency of Alcohol Consumption: Never Average Number of Drinks: Patient does not drink Frequency of Binge Drinking: Never Allergies: No Known Allergies Medications: Current Outpatient Medications: amLODIPine (NORVASC) 5 mg [...] from 05/30/2022., Disp: 90 tablet, Rfl: 3 cyanocobalamin (Vitamin B-12) 500 mcg tablet, Take 500 mcg by mouth daily, Disp: , Rfl: diphenoxylate-atropine (LOMOTIL) 2.5-0.025 mg per tablet, Take [...] 11 metFORMIN (GLUCOPHAGE) 500 mg tablet, Take 500 mg by mouth 2 (two) times a day with meals, Disp: , Rfl: metoprolol tartrate (LOPRESSOR) 50 [...] capsule, Take by mouth, Disp: , Rfl: metroNIDAZOLE (FLAGYL) 500 mg tablet, , Disp: , Rfl: Depression Screen: PHQ Screening Over the last 2 weeks, how often have you been bothered by any of the following problems? Little Interest or Pleasure in Doing Things: Not at all Feeling Down, Depressed, or Hopeless: Not at all PHQ-2 Total Score (If total score is 3 or more points, staff should administer the PHQ-9): 0 Over the past 2 weeks, how often [...] falls in the last year: No Vitals: Vitals BP 120/62 (BP Location: Right arm, Patient Position: Sitting) Pulse 67 Temp 36.7 ??C (98 ??F) (Oral) Resp 20 Ht 157.5 cm (5' 2 ) Wt 70.8 kg (156 lb) SpO2 97% BMI 28.53 kg/m?? Body mass index is 28.53 kg/m??. Exam: Physical Exam Vitals reviewed. Constitutional: Appearance: She is well-developed and overweight. HENT: Head: Normocephalic and atraumatic. Right Ear: External ear normal. Left Ear: External ear normal. Eyes: Conjunctiva/sclera: Conjunctivae normal. Pupils: Pupils are equal, round, and reactive to light. Cardiovascular: Rate and Rhythm: Normal rate and regular rhythm. Heart sounds: Normal heart sounds. No murmur heard. No friction rub. No gallop. Pulmonary: Effort: Pulmonary effort is normal. Breath sounds: Normal breath sounds. Abdominal: General: Bowel sounds are normal. Palpations: Abdomen is soft. Tenderness: There is no abdominal tenderness. Musculoskeletal: Right shoulder: Normal. Left shoulder: No swelling, tenderness or bony tenderness. Decreased range of motion. Decreased strength. Cervical back: Normal range of motion and neck supple. Skin: General: Skin is warm and dry. Capillary Refill: Capillary refill takes less than 2 seconds. Neurological: Mental Status: She is alert and oriented to person, place, and time. Psychiatric: Behavior: Behavior normal. Care Team Providers: Patient Care Team: Servando Torre MD as PCP - General (Family Medicine) Mariela Denton MD as Referring Physician (Gastroenterology) Primary Pharmacy/DME suppliers: [id number] - [place], [place] - [address] AT [facility] [address] [facility] [address] Detection of Cognitive Impairment: The patient does not have cognitive impairment based on direct observation, discussion with patientor family, or review of medical records. Health Maintenance: Health Maintenance Topics with due status: Overdue Topic Date Due Osteoporosis Screening-Bone Density Scan Never done Pneumococcal vaccine 65+ Never done DTaP/Tdap/Td Vaccine Never done Health Maintenance Topics with due status: Not Due Topic Last Completion Date Fall Risk Assessment 06/19/2022 Depression Screening-PHQ 06/19/2022 Well Visit 65+ 06/19/2022 Health Maintenance Topics with due status: Completed Topic Last Completion Date Zoster Vaccines 08/01/2020 Influenza Vaccine 05/06/2022 Covid-19 Vaccine 05/30/2022 Counseling and Referral of Preventative Services: Lifestyle Recommendations Increase Physical Activity, Reduce Weight, and Improve Diet Advanced Directive Durable Power of Laser Beam Trim Operator: Yes Living Will: Yes Assessment and Plan: Diagnoses and all orders for this visit: Initial Medicare annual wellness visit (Primary) Assessment & Plan: A(n) initial Medicare Annual Wellness Visit has [...] Xray ordered today; possibly rotator cuff dysfunction Mixed hyperlipidemia - Lipid panel; Future Patient here for annual Medicare wellness [...] update and summary of today's office visit. DRY OPERATOR documented in this encounter Miscellaneous Notes * Assessment & Plan Note - Servando Torre MD - 06/23/2022 3:05 PM FOUNDRY OPERATOR Associated Problem(s): Encounter for Medicare annual wellness exam A(n) initial Medicare Annual Wellness Visit has [...] Xray ordered today; possibly rotator cuff dysfunction DRY OPERATOR * Addendum Note - Harleen Gamboa - 06/19/2022 3:15 PM CSTAddended by: HARLEEN GAMBOA on: 07/26/2022 08:52 AM Modules accepted: Orders DRY OPERATOR documented in this encounter Plan of Treatment Not on file documented as of this encounter Results * Lipid panel (07/26/2022 8:52 AM FOUNDRY OPERATOR) Pathologist [facility] Cholesterol 152 30 - 199 mg/dL AILEEN MATTHEW Comment: [...] Data was last revised on 2018. Triglycerides 144 <=149 mg/dL AILEEN Comment: Interpretive Data Ages [...] Data was last revised on 2018. HDL 51 >=40 mg/dL AILEEN Comment: Interpretive Data Ages [...] was last revised on 2018. LDL, calculated 72 <=129 mg/dL AILEEN Comment: Interpretive Data Ages [...] was last revised on 2018. Non-HDL Cholesterol 101 mg/dL AILEEN MATTHEW Comment: Interpretive Data Ages [...] 2018. Chol/HDL ratio 3 AILEEN MATTHEW Blood 07/26/2022 8:52 AM FOUNDRY OPERATOR 07/26/2022 2:37 PM FOUNDRY OPERATOR Servando Torre MD LAB BLOOD ORDERABLES Final Result AILEEN MATTHEW [address] Department [place] [address] documented in this encounter Visit Diagnoses Diagnosis Initial Medicare annual wellness visit- Primary Mixed hyperlipidemia documented in this encounter Discontinued Medications Medication Sig Discontinue Reason Start Date End Da te metroNIDAZOLE (FLAGYL) 500 mg tablet 04/19/2022 06/19/2022 cyanocobalamin (Vitamin B-12) 500 mcg tabletIndications:Prevent ion of Vitamin B12 Deficiency Take 500 mcg by mouth daily 06/19/2022 documented as of this encounter Historical Medications * This list may reflect changes made after this encounter. Saccharomyces boulardii (FLORASTOR) 250 mg capsule Take by mouth 06/11/2023 metroNIDAZOLE (FLAGYL) 500 mg tablet 04/19/2022 06/19/2022 OneTouch Delica Plus Lancet 33 gauge misc USE TO CHECK BLOOD GLUCOSE TWICE DAILY NEEDED 04/12/2022 08/15/2022 diphenoxylate-atr opine (LOMOTIL) 2.5-0.025 mg per tablet Take 1 tablet by mouth 2 (two) times a day 02/07/2023 OneTouch Ultra Test strip USE TO TEST ONCE DAILY 04/12/2022 08/15/2022 added in this encounter Additional Health Concerns Infection Onset Date Last Indicated Resolved Time COVID: Suspected 07/03/2022 07/03/2022 07/03/2022 7:57 PM FOUNDRY OPERATOR COVID19 07/03/2022 07/03/2022 07/13/2022 3:05 AM FOUNDRY OPERATOR COVID: Recovered Comment:Added based on recent COVID infection. 07/13/2022 07/26/2022 10/11/2022 3:05 AM C DT documented as of this encounter Care Teams City Detective Relationship Specialty Start Date End Date Servando Torre MD [address] [facility] [address] [place] [address] PCP - General Family Medicine 06/19/22 Mariela Denton MD [address] [place] [address] Referring Physician Gastroenterology 06/19/22 documented as of this encounter
--- OUTSIDE RECORDS SUMMARY | 2024-07-12 19:46 | XMS_ITS | Encounter Summary ---
Author Organization [facility] Healthcare Address [address] [place] [address] Care Team Providers Care Air Traffic Controller Name Role Phone Servando Torre MD Primary Care Provider [phone] Mariela Denton MD Unavailable [phone] Lexis Barroso OD Unavailable [phone] Reason for Visit * Auth/Cert (Routine) Specialty Diagnoses / Procedures Referred By Contac t Referred To Contact Diagnoses Chronic ulcerative colitis with complication, unspecified location (HCC) Chronic ulcerative colitis with complication, unspecified location (HCC) [K51.919] Procedures SC COLONOSCOPY FLX DX W/COLLJ SPEC WHEN PFRMD SC COLONOSCOPY W/BIOPSY SINGLE/MULTIPLE COLONOSCOPY Referral ID Status Reason Start Date Expiration Date Visits Re quested Visits Authorized [id number] 1 1 Encounter Details Date Type Department Care Team (Late st Contact Info) Description 11/29/2022 10:21 AM CDT Anesthesia Event [facility] [id number] [place] [address] Aubrey Joyner MD [address] [facility] [address] [place] [address] Anesthesia Record Procedure Summary Procedure Name Responsible Anesthesiologist Anesthesia Start Time Anesthesia Stop Time COLONOSCOPY (Colon) Aubrey Joyner MD 11/29/22 1021 11/29/22 1046 Events Date Time Event Comment 11/29/2022 0939 0955 AN Equip Check 1021 An Start 1021 An Start Data 1022 In Room 1023 Start Supplemental O2 1027 Patient Positioned Laterally 1028 An Induction The patient was reevaluated immediately before moderate or deep sedation use and before anesthesia induction. 1029 Proc Start 1029 Anesthesia Ready 1038 Proc Fin 1039 Out of Room 1042 an stop data 1046 Handoff to RN I completed my handoff to the receiving nurse during which we: 1. Patient identified 2. Responsible provider identified 3. Pertinent medical history reviewed 4. Procedure type and surgical course discussed 5. Intraoperative anesthetic management and any significant issues discussed 6. Expectations and concerns for postop period discussed 7. Questions solicited from receiving nurse 8. Patient disposition at the time of handoff: PACU 1046 An Stop Meds Name Total propofol 140 mg Lidocaine IV 2 % 3 mL sodium chloride 0.9% infusion 400 mL * Agents Name O2 * Blood No blood administrations on file. 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 ROOM [facility] Anesthesia Start: 1021 Anesthesia Stop: 1046 Procedure: COLONOSCOPY (Colon) Diagnosis: Chronic ulcerative colitis with complication, unspecified location (HCC) (Chronic ulcerative colitis with complication, unspecified location (HCC) [K51.919]) Providers: Mariela Denton MD Responsible Provider: Aubrey Joyner MD Anesthesia Type: general ASA Status: 3 Anesthesia Type: general Last vitals BP 130/64 Pulse 60 Temp 36.2 ??C (97.2 ??F) (Temporal) Resp (!) 39 SpO2 93% Anesthesia Post Evaluation Patient location during evaluation: PACU Patient participation: complete - patient participated Level of consciousness: fully awake Pain score: 0 Pain management: adequate Airway patency: adequate Evidence of recall: no Cardiovascular status: hemodynamically stable and acceptable Respiratory status: acceptable and room air Hydration status: acceptable Pt is: normothermic Nausea/Vomiting status: none No notable events documented. * Anesthesia Preprocedure Evaluation - Aubrey Joyner MD - 11/29/2022 9:45 AM CDT Images from the original note were not included. Anesthesia Evaluation Lisa Allen is a 77 y.o. female Procedure(s): COLONOSCOPY Pre-Op Diagnosis Codes: * Chronic ulcerative colitis with complication, unspecified location (HCC) [K51.919] Patient Active Problem List Diagnosis ??? Arthralgia of hip ??? Stress fracture ??? Ear ringing ??? Asymmetrical sensorineural hearing loss ??? Chronic ulcerative colitis, unspecified complication (HCC) ??? Prediabetes ??? Initial Medicare annual wellness visit ??? Diabetes mellitus (HCC) ??? Anemia ??? GERD (gastroesophageal reflux disease) ??? Hyperlipidemia ??? Hypertension ??? Ulcerative colitis (HCC) ??? 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 Gout Past Medical History: Diagnosis Date ??? Anemia ??? Detached retina ??? Diabetes mellitus (HCC) ??? GERD (gastroesophageal reflux disease) ??? Gout ??? Hyperlipidemia ??? Hypertension ??? 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 Prediabetes 06/19/2022 ??? Ulcerative colitis (HCC) 2019 Past Surgical History: Procedure Laterality Date ??? FEMUR FRACTURE SURGERY Left 2010 ??? PARTIAL HIP ARTHROPLASTY Left 2014 ??? RETINAL DETACHMENT SURGERY Right OB History No obstetric history on file. No Known Allergies Med List Status: Nurse Complete Set By: Rosy Jang RN at 11/29/2022 9:29 AM Taking? Last Dose Start Date End Date Provider amLODIPine (NORVASC) 5 mg tablet 11/28/2022 07/08/22 -- Servando Torre MD Take 1 tablet (5 mg total) by mouth daily aspirin 81 mg enteric coated tablet 11/28/2022 -- -- Silvestre Ahn MD azaTHIOprine (IMURAN) 100 mg tablet 11/28/2022 08/15/22 -- Mariela Denton MD Take 1 tablet (100 mg total) by mouth daily Safety labs required every 3 months for med refills, next labs due 08/2022. budesonide DR/ER (UCERIS) 9 mg tablet, delayed & ext.release -- 05/30/22 -- Mariela Denton MD Take 1 tablet (9 mg total) by mouth daily cholecalciferol (VITAMIN D-3) 2000 unit tablet 11/28/2022 05/31/22 -- Mariela Denton MD Take 1 tablet (2,000 Units total) by mouth daily Low Vitamin D level from 05/30/2022. diphenoxylate-atropine (LOMOTIL) 2.5-0.025 mg per tablet -- -- -- Silvestre Ahn MD ferrous sulfate ER 324 mg (65 mg iron) EC tablet 11/28/2022 10/10/22 -- Servando Torre MD Take 1 tablet (324 mg total) by mouth daily with breakfast Lactobacillus acidophilus (PROBIOTIC ORAL) Past Week -- -- Silvestre Ahn MD mesalamine (APRISO) 0.375 gram 24 hr capsule 11/28/2022 08/15/22 08/15/23 Mariela Denton MD Take 4 capsules (1.5 g total) by mouth daily metFORMIN (GLUCOPHAGE) 850 mg tablet 11/28/2022 09/19/22 -- Servando Torre MD Take 1 tablet (850 mg total) by mouth 2 (two) times a day with meals metoprolol tartrate (LOPRESSOR) 50 mg immediate release tablet 11/29/2022 08/08/22 -- OlusegunA. Torre MD Take 1 tablet (50 mg total) by mouth 2 (two) times a day multivitamin capsule 11/28/2022 -- -- Silvestre Ahn MD OneTouch Delica Plus Lancet 33 gauge misc -- 08/16/22 -- Servando Torre MD 1 each by other route daily To check glucose with glucose monitor and strip [employer] Ultra Test strip -- 08/16/22 -- Servando Torre MD 1 each by other route daily To check blood glucose pantoprazole DR (PROTONIX) 40 mg EC tablet 11/28/2022 08/08/22 -- Servando Torre MD Take 1 tablet (40 mg total) by mouth daily pravastatin (PRAVACHOL) 40 mg tablet 11/28/2022 08/08/22 -- Servando Torre MD Take 1 tablet (40 mg total) by mouth daily Saccharomyces boulardii (FLORASTOR) 250 mg capsule -- -- -- ProviderSilvestre MD vedolizumab (ENTYVIO) 300 mg recon soln More than a month -- -- Mariela Denton MD Current Facility-Administered Medications: ??? ondansetron (ZOFRAN) 4 mg/2 mL injection - ADS Override Pull, , , ??? sodium chloride 0.9% flush 0.5-20 mL, 0.5-20 mL, intra-catheter, PRN ??? sodium chloride 0.9% infusion, 30 mL/hr, intravenous, Continuous, Last Rate: 30 mL/hr at 11/29/22 0941, 30 mL/hr at 11/29/22 09 Social History Tobacco Use Smoking Status Never Smokeless Tobacco Never Vaping Use Vaping Status Never Used Alcohol Use: Not At Risk (11/29/2022) AUDIT-C ??? Frequency of Alcohol Consumption: Never ??? Average Number of Drinks: Patient does not drink ??? Frequency of Binge Drinking: Never Substance and Sexual Activity Drug Use Never Family History Problem Relation Age of Onset ??? Atrial fibrillation Mother ??? Breast cancer Mother ??? Stroke Mother ??? Cancer Father Vitals: 11/29/22 0920 11/29/2292911/29/22934 BP: 128/68 119/58 Pulse: 67 66 Resp: 18 27 Temp: 36 ??C (96.8 ??F) SpO2: 95% 94% PT: No results found for requested labs within last 30 days. INR: No results found for requested labs within last 30 days. APTT: No results found for requested labs within last 30 days. Hgb A1C: No results found for requested labs within last 30 days. CBC RBC: No results found for requested labs within last 30 days. RDW: No results found for requested labs within last 30 days. MCHC: No results found for requested labs within last 30 days. MCH: No results found for requested labs within last 30 days. MCV: No results found for requested labs within last 30 days. Hct: No results found for requested labs within last 30 days. Hgb: No results found for requested labs within last 30 days. WBC: No results found for requested labs within last 30 days. MPV: No results found for requested labs within last 30 days. Platelets: No results found for requested labs within last 30 days. RDW CV: No results found for requested labs within last 30 days. RDW Sd: No results found for requested labs within last 30 days. BMP Glucose: No results found for requested labs within last 30 days. Calcium: No results found for requested labs within last 30 days. Sodium: No results found for requested labs within last 30 days. Potassium: No results found for requested labs within last 30 days. CO2: No results found for requested labs within last 30 days. Chloride: No results found for requested labs within last 30 days. BUN: No results found for requested labs within last 30 days. Creatinine: No results found for requested labs within last 30 days. STOP-Bang Total Score: 4 DOS Physical Exam Medical history, medications, and allergies reviewed. Attestation: This PAT evaluation Airway Exam: Mallampati: III Cervical ROM: FROM Cardiovascular Exam: Rate: regular Rhythm: regular Pulmonary Exam: LCTA, bilat Dental Exam: Lower partials Additional comments: Partial removed Anesthesia Plan ASA 3 My patient is approved for the Anesthesia Controlled Medication protocol when under care of a WEB APPLICATIONS ARCHITECT Planned anesthesia: General Informed Consent: Anesthesia plan and risks discussed with patient. Plan and Consent Comments: Adv age, FRAIL; [place] Consent and Attending signature: I and/or my designee have discussed the anesthesia plan, benefits, possible alternatives, parental presence at time of induction (if indicated), and clinically relevant risks that may include dental injury, unintentional awareness, and/or other complications. The patient and/or parent/legal guardian understand, and agree to proceed. All questions answered. documented in this encounter Plan of Treatment Not on file documented as of this encounter Visit Diagnoses Not on filedocumented in this encounter Administered Medications Inactive Administered Medications - up to 3 most recent administrations Medication Order MAR Action Action Date Dose Rate Site lidocaine (XYLOCAINE) 20 mg/mL (2 %) injection intravenous, As needed, Starting on Fri11/29/22 at 1028, Anesthesia Intra-op, Indications: Administration of Local AnesthesiaIndications:Administrati on of Local Anesthesia Given 11/29/2022 10:28 AM CDT 3 mL propofoL (DIPRIVAN) 10 mg/mL IV intravenous, As needed, Starting on Fri11/29/22 at 1028, Anesthesia Intra-op Given 11/29/2022 10:35 AM CDT 30 mg Given 11/29/2022 10:32 AM CDT 30 mg Given 11/29/2022 10:28 AM CDT 80 mg sodium chloride 0.9% infusion 30 mL/hr, intravenous, Continuous, Starting on Fri11/29/22 at 1015, Pre-Procedure (GI) Rate/Dose Verify 11/29/2022 10:21 AM CDT 30 mL/hr New Bag 11/29/2022 9:41 AM CDT 30 mL/hr 30 mL/hr documented in this encounter Care Teams Air Traffic Controller Relationship Specialty Start Date End Date Servando Torre MD [address] [facility] [address] [place] [address] PCP - General Family Medicine 06/19/22 Mariela Denton MD [address] [place] [address] Referring Physician Gastroenterology 06/19/22 Lexis Barroso OD [address] [place] [id number] Wicker Molded Candles 09/19/22 documented as of this encounter
--- OUTSIDE RECORDS SUMMARY | 2024-07-12 19:46 | XMS_ITS | Encounter Summary ---
Author Organization [facility] Address [address] [place] [address] Phone Care Team Providers Care Business Center Representative Name Role Phone Servando Torre MD Primary Care Provider Mariela Denton MD Unavailable [phone] Lexis Barroso OD Unavailable [phone] Encounter Details Date Type Department Care Team (Late st Contact Info) Description 09/20/2022 Orders Only [facility] Gastroenterology [address] [facility] 12th [place] [address] [place] [id number] Lexis Renteria, ELMO Social History Tobacco Use Types Packs/Day [...] file 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 vedolizumab (ENTYVIO) 300 mg recon soln Infuse 5 mL (300 mg total) into a venous catheter every 8 (eight) weeks 04/29/2023 added in this encounter Additional Health Concerns Infection Onset Date Last Indicated Resolved Time COVID: Recovered Comment:Added based on recent COVID infection. 07/13/2022 07/26/2022 10/11/2022 3:05 AM C DT documented as of this encounter Care Teams Business Center Representative Relationship Specialty Start Date End Date Servando Torre MD [address] [facility] [address] [place] [address] PCP - General Family Medicine 06/19/22 Mariela Denton MD [address] [place] [address] Referring Physician Gastroenterology 06/19/22 Lexis Barroso OD [address] [address] Structural Worker 09/19/22 documented as of this encounter
--- OUTSIDE RECORDS SUMMARY | 2024-07-12 19:46 | XMS_ITS | Encounter Summary ---
Author Organization [facility] Group Address [address] [facility] [address] [place] [address] Care Team Providers Care Safety Deposit Supervisor Name Role Phone Servando Torre MD Primary Care Provider Mariela Denton MD Unavailable [phone] Reason for Visit * Reason Onset Date Comments Lab Results 08/02/2022 Encounter Details Date Type Department Care Team (Late st Contact Info) Description 08/02/2022 Telephone [facility] Medical [facility] Primary Care at [address] [address] Servando Torre MD [address] [place] [address] [address] [place] [address] Lab Results Social History Tobacco Use Types Packs/Day Years [...] on file 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 LMOM to contact the office back at [phone] Regarding: lab results Telephone task has been made. Please relay: Cholesterol well controlled, nice job R TREATMENT PLANT OPERATOR * Telephone Encounter - Regina Toscano MA - 08/02/2022 2:51 PM WATER TREATMENT PLANT OPERATOR ----- Message from Marixa San NP sent at 07/26/2022 4:29 PM WATER TREATMENT PLANT OPERATOR ----- Cholesterol well controlled, nice job R TREATMENT PLANT OPERATOR documented in this encounter Plan of Treatment Not on file documented as of this encounter Visit Diagnoses Not on filedocumented in this encounter Additional Health Concerns Infection Onset Date Last Indicated Resolved Time COVID: Recovered Comment:Added based on recent COVID infection. 07/13/2022 07/26/2022 10/11/2022 3:05 AM C DT documented as of this encounter Care Teams Safety Deposit Supervisor Relationship Specialty Start Date End Date Servando Torre MD [address] [facility] [address] [place] [address] PCP - General Family Medicine 06/19/22 Mariela Denton MD [address] [place] [address] Referring Physician Gastroenterology 06/19/22 documented as of this encounter
--- OUTSIDE RECORDS SUMMARY | 2024-07-12 19:46 | XMS_ITS | Encounter Summary ---
Author Organization [facility] Address [address] [place] [address] Phone Care Team Providers Care Manager Of Tires Sales Name Role Phone Jared Abrams MD Primary Care Provider [phone] Encounter Details Date Type Department Care Team (Late st Contact Info) Description 06/04/2022 Orders Only [facility] Gastroenterology [address] 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 90 tablet 06/04/2022 documented in this encounter Progress Notes * Janice Baez LPN - 06/04/2022 2:01 PM CST Metabolites results from 05/30/2022: 6-TG 293 and 6-MMP 2,999. Done on AZA 100 mg/d. Current wt: [address] Denton, perfect metabolites. We plan on submitting for Entyvio and stopping AZA down the road since still quite asymptomatic with appropriate metabolites. Azathioprine refill sent in to pt's local [facility] as pt's dgtr reported that she was running low with her supply at home. Y BAR ATTENDANT documented in this encounter Plan of Treatment Not on file documented as of this encounter Visit Diagnoses Diagnosis Ulcerative colitis with complication, unspecified location (HCC)- Primary documented in this encounter Discontinued Medications Medication Sig Discontinue Reason Start Date End Da te azaTHIOprine (IMURAN) 100 mg tablet Take 100 mg by mouth daily Reorder 06/04/2022 documented as of this encounter Care Teams Manager Of Tires Sales Relationship Specialty Start Date End Date Jared Abrams MD [address] [place] [address] PCP - General Internal Medicine 05/30/22 06/18/22 documented as of this encounter
--- OUTSIDE RECORDS SUMMARY | 2024-07-12 19:46 | XMS_ITS | Encounter Summary ---
Author Organization [facility] Address [address] [place] [address] Phone Care Team Providers Care Cook Italian Style Food Name Role Phone Jraed Abrams MD Primary Care Provider [phone] Encounter Details Date Type Department Care Team (Late st Contact Info) Description 06/10/2022 Orders Only [facility] Gastroenterology [address] [facility] 12th [place] [address] [place] [phone] Lexis Renteria, RN Ulcerative colitis with complication, unspecified location (HCC) [...] on file 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 [facility] therapy planentered (under procedures tab) and routed to pre-cert so that they can obtain the auth. Patient informed and set a reminder to f/u TICS ENGINEER * Marga Pradhan CPhT - 06/10/2022 2:01 PM CST SPECIALTY DRUG INFUSION AUTHORIZATION Patient: Lisa Allen : 1945 Ordering Physician: WILLIAM SHORT NPI #: [id number] DRUG NAME: ENTYVIO DOSE/FREQUENCY: 300MG 0,2,6WEEKS Q 8 WEEKS CPT/ADMIN CODE(S): J3380, 17799, 56395 DX CODE(S): K51.919 LOCATION: [facility] Primary Insurance: MEDICARE ID # [id number] Group # Ins Phone # E-VERIFIED AUTH #: NOT REQ Effective Date: 06/18/2022 Expiration date: 07/27/2022 How many visits: 99 Ins Rep Name: E-VERFIED Auth Phone #: Date Called: 06/18/2022 Call ref #: PCP Referral required? N Referral number/visits/valid dates: Is this drug a covered benefit under the medical plan? YES (Rep's name E-VERFIED @ call ref#) Does the pt have 'BUY AND BILL' benefit (can this drug be supplied in the office or hospital setting, and the medical plan billed?) YES Specialty pharmacy name if applicable: PRE-DETERMINATION REQUIRED/RECOMMENDED? N PRE-D FAX #: DATE SUBMITTED: PRE-D OUTCOME: Secondary Insurance: [facility] SUPP PLAN ID # [id number] Group # [id number] Ins AUTH #: NOT REQ Effective Date: 06/18/2022 Expiration Date: 07/27/2022 How many visits: 99 Ins Rep Name: E-VERIFIED Auth Phone #: Date Called: 06/18/2022 Call ref #: PCP Referral required? N Referral number/visits/valid dates: Is this drug a covered benefit under the medical plan? YES (Rep's name E- VERIFIED @ /call ref#) Does the pt have 'buy and bill' benefit (can this drug be supplied in the office or hospital setting, and the medical plan billed?) YES Specialty pharmacy name/phone if applicable: PRE-DETERMINATION REQUIRED/RECOMMENDED? N PRE-D FAX #: DATE SUBMITTED: PRE-D OUTCOME: TICS ENGINEER documented in this encounter Plan of Treatment Not on file documented as of this encounter Visit Diagnoses Diagnosis Ulcerative colitis with complication, unspecified location (HCC)- Primary documented in this encounter Orders Procedures Count Last Ordered Date First Orde red Date ONCBCN OUTPATIENT FACILITY ORDERS 1 022 documented in this encounter Care Teams Cook Italian Style Food Relationship Specialty Start Date End Date Jared Abrams MD [address] [place] [address] PCP - General Internal Medicine 05/30/22 06/18/22 documented as of this encounter
--- OUTSIDE RECORDS SUMMARY | 2024-07-12 19:46 | XMS_ITS | Encounter Summary ---
Author Organization [facility] Address [address] [facility] [address] [place] [address] Care Team Providers Care Sales Person Name Role Phone Servando Torre MD Primary Care Provider Mariela Denton MD Unavailable +1 -[phone] Encounter Details Date Type Department Care Team (Late st Contact Info) Description 06/23/2022 Orders Only [facility] Primary Care at [address] [address] Servando Torre MD [address] [place] [address] [address] [place] [address] Chronic left shoulder pain (Primary Dx) Social History Tobacco Use Types [...] on file 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 Gender Identity Female 04/05/2022 6:17 PM CDT Sexual Orientation Straight 04/05/2022 6: 17 PM CDT documented as of this encounter Plan of Treatment Not on file documented as of this encounter Visit Diagnoses Diagnosis Chronic left shoulder pain- Primary Pain in joint, shoulder region documented in this encounter Care Teams Sales Person Relationship Specialty Start Date End Date Servando Torre MD [address] [facility] [address] [place] [address] PCP - General Family Medicine 06/19/22 Mariela Denton MD [address] [place] [address] Referring Physician Gastroenterology 06/19/22 documented as of this encounter
--- OUTSIDE RECORDS SUMMARY | 2024-07-12 19:46 | XMS_ITS | Encounter Summary ---
Author Organization [facility] Address [address] [facility] [address] [place] [address] Care Team Providers Care Dance Studio Manager Name Role Phone Servando Torre MD Primary Care Provider Mariela Denton MD Unavailable [phone] [phone] Reason for Referral * Diagnostic Imaging (Routine) - Closed Specialty Diagnoses / Procedures Referred By Contac t Referred To Contact Diagnoses Chronic left shoulder pain Procedures XR Shoulder Left 2+ Vw Servando Torre MD [address] [facility] 130 [place] [address] Phone: tel: fax: [facility] Referral ID Status Reason Start Date Expiration Date Visits Re quested Visits Authorized [id number] Closed 06/19/2022 07/19/2023 1 1 [facility] Encounter Details Date Type Department Care Team (Late st Contact Info) Description 06/19/2022 Orders Only [facility] Medical [facility] Primary Care at [address] [address] Servando Torre MD [address] [facility] [address] [place] [address] Chronic left shoulder pain (Primary [...] on file Legal Sex Female 9:30 AM MANAGER DISTRIBUTION CENTER Gender Identity Female 04/05/2022 6:17 PM CDT Sexual Orientation Straight 04/05/2022 6: 17 PM CDT documented as of this encounter Plan of Treatment Not on file documented as of this encounter Results * XR Shoulder Left 2+ Vw (06/19/2022 4:16 PM [facility]NA[facility] DISTRIBUTION CENTER) Anatomical Region Laterality Modality Upper Extremities, Shoulder Left Digi hortensia Radiography 06/20/2022 6:31 PM MANAGER DISTRIBUTION CENTER Narrative 06/20/2022 6:32 PM MANAGER DISTRIBUTION CENTER EXAM DESCRIPTION: ?? XR SHOULDER LEFT 2 OR MORE VIEWS REASON FOR STUDY: Shoulder pain x 3 mo, Loss of ROM, no trauma ?? TECHNIQUE: ?? Internal rotation, external rotation, scapular Y and axillary ?? views acquired of the left shoulder. COMPARISON: ?? None FINDINGS: BONES/JOINTS: ?? There is osteoarthritis at the acromioclavicular joint with joint space narrowing and osteophyte formation. ??There is osteophyte formation at the glenohumeral joint, with milder narrowing present. There are degenerative changes at the greater tuberosity. ??No acute fracture or dislocation. ?? SOFT TISSUES: ?? Unremarkable. VISUALIZED RIBS AND LUNG: ?? No significant finding. OTHER: ?? No significant finding. IMPRESSION: ?? Osteoarthritis. ??No acute osseous abnormality. THIS IS AN ELECTRONICALLY VERIFIED FINAL REPORT 06/20/2022 6:32 PM - Electronically signed by ??Kailey Layton M.D. TW D: ??06/20/2022 6:32 PM T: Report ID: [id number] Reading Location: ??[id number] Procedure Note Kailey Layton MD - 06/20/2022 EXAM DESCRIPTION: XR SHOULDER LEFT 2 OR MORE VIEWS REASON FOR STUDY: Shoulder pain x 3 mo, Loss of ROM, no trauma TECHNIQUE: Internal rotation, external rotation, scapular Y and axillary views acquired of the left shoulder. COMPARISON: None FINDINGS: BONES/JOINTS: There is osteoarthritis at the acromioclavicular joint with joint space narrowing and osteophyte formation. There is osteophyte formation at the glenohumeral joint, with milder narrowingpresent. There are degenerative changes at the greater tuberosity. No acutefracture or dislocation. SOFT TISSUES: Unremarkable. VISUALIZED RIBS AND LUNG: No significant finding. OTHER: No significant finding. IMPRESSION: Osteoarthritis. No acute osseous abnormality. THIS IS AN ELECTRONICALLY VERIFIED FINAL REPORT 06/20/2022 6:32 PM - Electronically signed by Kailey Layton M.D. TW T: Report ID: [id number] Reading Location: [id number] us Servando Torre MD IMG XR PROCEDURES Final Res ult documented in this encounter Visit Diagnoses Diagnosis Chronic left shoulder pain- Primary Pain in joint, shoulder region Chronic left shoulder pain Pain in joint, shoulder region documented in this encounter Care Teams Dance Studio Manager Relationship Specialty Start Date End Date Servando Torre MD [address] [facility] [address] [place] [address] PCP - General Family Medicine 06/19/22 Mariela Denton MD [address] [place] [address] Referring Physician Gastroenterology 06/19/22 documented as of this encounter
--- OUTSIDE RECORDS SUMMARY | 2024-07-12 19:46 | XMS_ITS | Encounter Summary ---
Author Organization [facility] Address [address] [facility] [address] [place] [address] Care Team Providers Care Chief Writer Name Role Phone Servando Torre MD Primary Care Provider [phone] Mariela Denton MD Unavailable [phone] [phone] Reason for Visit * Diagnostic Imaging (Routine) - Closed Specialty Diagnoses / Procedures Referred By Angel t Referred To Contact Diagnoses Chronic left shoulder pain Procedures XR Shoulder Left 2+ Vw Servando Torre MD [address] [place] [address] Phone: tel: fax: [facility] Referral ID Status Reason Start Date Expiration Date Visits Re quested Visits Authorized [id number] Closed 06/19/2022 07/19/2023 1 1 Encounter Details Date Type Department Care Team (Latest Contact Info) Description 06/19/2022 4:15 PM FAN INSTALLER Ancillary Procedure [facility] Imaging at [address] [address] Chronic left shoulder pain Social History Tobacco Use Types Packs/Day Years [...] file Legal Sex Female 9:30 AM FAN INSTALLER Gender Identity Female 04/05/2022 6:17 PM CDT Sexual Orientation Straight 04/05/2022 6: 17 PM CDT documented as of this encounter Plan of Treatment Not on file documented as of this encounter Procedures Procedure Name Priority Date/Time Associated Diagnosis Comments XR SHOULDER LEFT 2 OR MORE VIEWS Schedule Routine, Read Routine (OP Routine) 06/19/2022 4:16 PM FAN INSTALLER Chronic left shoulder pain documented in this encounter Results * XR Shoulder Left 2+ Vw (06/19/2022 4:16 PM FAN INSTALLER) Anatomical Region Laterality Modality Upper Extremities, Shoulder Left Digi hortensia Radiography 06/20/2022 6:31 PM FAN INSTALLER Narrative 06/20/2022 6:32 PM FAN INSTALLER EXAM DESCRIPTION: ?? XR SHOULDER LEFT 2 [...] D: ??06/20/2022 6:32 PM T: Report ID: [id number] Reading Location: ??[id number] Procedure Note Kailey Layton MD - 06/20/2022 [...] Kailey Layton M.D. TW T: Report ID: [id number] Reading Location: [place] [address] us Servando Torre MD IMG XR PROCEDURES Final Res ult documented in this encounter Visit Diagnoses Diagnosis Chronic left shoulder pain Pain in joint, shoulder region documented in this encounter Care Teams Chief Writer Relationship Specialty Start Date End Date Servando Torre MD [address] [facility] [address] [place] [address] PCP - General Family Medicine 06/19/22 Mariela Denton MD [address] [place] [address] Referring Physician Gastroenterology 06/19/22 documented as of this encounter
--- OUTSIDE RECORDS SUMMARY | 2024-07-12 19:46 | XMS_ITS | Encounter Summary ---
Author Organization [facility] Address [address] [place] [address] Phone Care Team Providers Care Insulation Sprayer Name Role Phone Sevrando Torre MD Primary Care Provider [phone] Mariela Denton MD Unavailable [phone] [phone] Reason for Visit * Reason Onset Date Comments Infusion & Covid 07/02/2022 Encounter Details Date Type Department Care Team (Late st Contact Info) Description 07/02/2022 Telephone [facility] Gastroenterology [facility] 12th [place] [address] [place] [address] Lexis Renteria RN Infusion & Covid Social History Tobacco Use Types Packs/Day Years [...] on file Legal Sex Female 9:30 AM PHARMACEUTICAL DETAILER Gender Identity Female 04/05/2022 6:17 PM CDT Sexual Orientation Straight 04/05/2022 6: 17 PM CDT documented as of this encounter Miscellaneous Notes * Telephone Encounter - Lexis Renteria RN - 07/02/2022 3:47 PM CST Received a VM from Varsha with [facility] in [place]. Patient is calling to schedule her Entyvio, but she was recently diagnosed with Covid. She is wanting to schedule her infusion this , which would put her 1 week out from Covid diagnosis. Varsha is asking if this is OK? Returned call and left VM on machine. 5 days out from Covid diagnosis,if pt is afebrile and feelingwell, it is OK to infuse. Left my direct line in case she needs additional clarification. MACEUTICAL DETAILER documented in this encounter Plan of Treatment Not on file documented as of this encounter Visit Diagnoses Not on filedocumented in this encounter Care Teams Insulation Sprayer Relationship Specialty Start Date End Date Servando Torre MD [facility] [address] PCP - General Family Medicine 06/19/22 Mariela Denton MD [address] [place] [address] Referring Physician Gastroenterology 06/19/22 documented as of this encounter
--- OUTSIDE RECORDS SUMMARY | 2024-07-12 19:46 | XMS_ITS | Encounter Summary ---
Author Organization [facility] Healthcare Address [address] [place] [address] Care Team Providers Care Writer Producer Name Role Phone Servando Torre MD Primary Care Provider Mariela Denton MD Unavailable [phone] [phone] Encounter Details Date Type Department Care Team (Latest Contact Info) Description 07/26/2022 8:52 AM CHARTING CLERK - 07/26/2022 11:59 PM CHARTING CLERK Hospital Encounter [facility] [address] [place], [place] [id number] Mixed hyperlipidemia Discharge Disposition: Discharge to home [...] on file Legal Sex Female 9:30 AM CHARTING CLERK Gender Identity Female 04/05/2022 6:17 PM [...] daily amLODIPine (NORVASC) 5 mg tablet Take 1 [...] Procedure Name Priority Date/Time Associated Diagnosis Comments LIPID PANEL Routine 07/26/2022 8:52 AM CHARTING CLERK Mixed hyperlipidemia documented in this encounter Results * Lipid panel (07/26/2022 8:52 AM CHARTING CLERK) Cholesterol 152 30 - 199 mg/dL AILEEN [...] on 2018. Triglycerides 144 <=149 mg/dL AILEEN MATTHEW Comment: Interpretive Data [...] on 2018. HDL 51 >=40 mg/dL AILEEN MATTHEW Comment: Interpretive Data [...] 2018. LDL, calculated 72 <=129 mg/dL AILEEN MATTHEW Comment: Interpretive Data [...] on 2018. Chol/HDL ratio 3 AILEEN Blood 07/26/2022 8:52 AM CHARTING CLERK 07/26/2022 2:37 PM CHARTING CLERK Servando Torre MD LAB BLOOD ORDERABLES Final Result Performing Organization Address City/State/Research [facility] Phone Number AILEEN [address] Department [place] [address] documented in this encounter Visit Diagnoses Diagnosis Mixed hyperlipidemia documented in this encounter Additional Health Concerns Infection Onset Date Last Indicated Resolved Time COVID: Recovered Comment:Added based on recent COVID infection. 07/13/2022 07/26/2022 10/11/2022 3:05 AM C DT documented as of this encounter Care Teams Writer Producer Relationship Specialty Start Date End Date Servando Torre MD [address] [address] PCP - General Family Medicine 06/19/22 Mariela Denton MD [address] [place] [address] Referring Physician Gastroenterology 06/19/22 documented as of this encounter
--- OUTSIDE RECORDS SUMMARY | 2024-07-12 19:46 | XMS_ITS | Encounter Summary ---
Author Organization [facility] Healthcare Address [address] [place] [address] Care Team Providers Care Vehicle Service Attendant Name Role Phone Servando Torre MD Primary Care Provider [phone]- [phone] Mariela Denton MD Unavailable [phone] [phone] Lexis Barroso OD Unavailable +- [phone] Reason for Visit * Auth/Cert (Routine) Specialty Diagnoses / Procedures Referred By Contac t Referred To Contact Diagnoses Chronic ulcerative colitis with complication, unspecified location (HCC) Chronic ulcerative colitis with complication, unspecified location (HCC) [K51.919] Procedures LA COLONOSCOPY FLX DX W/COLLJ SPEC WHEN PFRMD LA COLONOSCOPY W/BIOPSY SINGLE/MULTIPLE COLONOSCOPY Referral ID Status Reason Start Date Expiration Date Visits Re quested Visits Authorized [id number] 1 1 Encounter Details Date Type Department Care Team (Late st Contact Info) Description 11/29/2022 9:07 AM CDT - 11/29/2022 11:27 AM CDT Hospital Encounter [facility] [address] [address] Mariela Denton MD [address] [place] [address] Discharge Disposition: Discharge to home or self [...] on file Legal Sex Female 9:30 AM CERAMICS ENGINEER Gender Identity Female 04/05/2022 6:17 PM CDT Sexual Orientation Straight 04/05/2022 6: 17 PM CDT documented as of this encounter Last Filed Vital Signs Vital Sign Reading Time Taken Comments Blood Pressure 130/64 11/29/2022 11:05 AM CDT Pulse 60 11/29/2022 11:05 AM CDT Temperature 36.2 ??C (97.2 ??F) 11/29/2022 10:40 AM C DT Respiratory Rate 39 11/29/2022 11:05 AM CDT Oxygen Saturation 93% 11/29/2022 11:05 AM CDT Inhaled Oxygen Concentration - - [...] Diet: Type of diet ordered {GI diet instructions:39336796}. You may eat and drink at . [...] your physician. Pain/Bleeding: You have had {POST BIOPSY/DILITATION:43270313} performed during the procedure. You may expect a little bleeding from the site. Within the next 48 hours, if the bleeding becomes excessive or is accompanied by abdominal or chest pain, please call your physician immediately. If you are on aspirin or NSAIDS (non-steroidal anti-inflammatory drugs) then you can resume in {Endo ASA/NSAIDS:59160422}. If no follow-up appointment is required, you [...] Procedure Laterality Date FEMUR FRACTURE SURGERY Left 2011 PARTIAL HIP [...] tablet Take 81 mg by mouth daily Provider, MD Silvestre azaTHIOprine (IMURAN) 100 mg tablet Take 1 tablet (100 mg total) by mouth daily Safety labs required every 3 months for med refills, next labs due 08/2022. 08/15/22 Mariela Denton MD budesonide DR/ER (ERIS) 9 mg tablet, delayed & ext.release Take [...] capsule Take 1 capsule by mouth daily ProviderSilvestre MD OneTouch Delica Plus Lancet 33 gauge [...] Female Attending MD: Mariela Denton M.D. Room: [facility] ENDOSCOPY ROOM 01 Note Status: Finalized Procedure: [...] scope was passed under direct vision. The [id number] was introduced through the anus and advanced [...] hours - Please call the Nurse Coordinator: [phone] After hours, evening, nights, weekends and holidays - Please call the hospital railway signal operator at and ask for the GI fellow field applications specialist. Electronically signed by Mariela Denton M.D. Mariela Denton M.D. 11/29/2022 10:54:08 AM Number of Addenda: 0 Note Initiated On: 11/29/2022 10:18 AM documented in this encounter Miscellaneous Notes * Perioperative Nursing Note - Gay Jasso RN - 11/29/2022 10:50 AM CDT discussed findings. Discharge instructions given to patient, (and by phone - directed to orange picker machine operator location).Understanding expressed, questions answered.(No signatures due to CoVid19 protocol) Tolerating po fluids. * Pre-Procedure Instructions - Riri Bro RN - 11/28/2022 12:38 PM CDT Please follow all instruction you were given regarding your bowel prep. When you arrive come to [facility] Hospital entrance. As you enter [...] non-medical transport)by yourself will be allowed Your pizza delivery driver must be at least 18 y/o If your pizza delivery driver chooses not to come in to the building or will be picking you up after your procedure-we will call your pizza delivery driver to confirm your ride home prior to the procedure start time Masking at [facility] is now optional. You may bring a mask and masks are available at hospital entrance. We respect personal choice of anyone who chooses to mask. Be assured employees are ready to mask upon request when providing care. My number is [phone] documented in this encounter Plan of Treatment [...] Female Attending MD: Mariela Denton M.D. Room: [facility] END[facility]COPY RO[facility] 01 Note Status: Finalized Procedure: Colonoscopy Indications: Disease activity assessment of chronic ulcerative pancolitis, Assess therapeutic response to therapyof chronic ulcerative pancolitis on Entyvio Q8 andApriso Providers: Mariela Denton M.D. Referring MD: Servando [...] The scope was passed under direct vision.The [id number] was introduced through the anusand advanced to [...] business hours - Please call theNurse Coordinator: [phone] After hours, evening, nights, weekends and holidays- Please call the hospital railway signal operator at and ask for the GI fellow field applications specialist. Electronically signed by Mariela Denton M.D. Mariela Denton M.D. 11/29/2022 10:54:08 AM Number of Addenda: 0 Note Initiated On: 11/29/2022 10:18 AM us Mariela Denton MD ENDOSCOPY PROCEDURE S Final Result * POCT glucose (11/29/2022 9:46 AM CDT) [facility] Glucose, POC 166 70 - 199 mg/dL AILEEN ROSAS Comment: Interpretive Data Glucose is assumed to be non-fasting. Fasting Glucose reference ranges are: 0 - 150 years: ??70 mg/dL - 99 mg/dL Current interpretive data was last revised on 2014. POC Performer [id number] AILEEN ROSAS POC Device Number [id number] AILEEN ROSAS Blood 11/29/2022 9:46 AM CDT 11/29/2022 9:46 AM CDT Mariela Denton MD LAB POCT ORDERABLES - DEVICE Final Result AILEEN CRAIGWCH [address] [facility]. Department [place] [address] documented in this encounter Visit Diagnoses Not [...] Leena Jaimes CRNA)1049 (Stopped - Provider: Gay Jasso RN) PRN Medication Order 11/27/2022 11/28/2022 11/29/2022 ondansetron [...] 11/29/2022 documented in this encounter Care Teams Vehicle Service Attendant Relationship Specialty Start Date End Date Servando Torre MD [facility] [address] [address] PCP - General Family Medicine 06/19/22 Mariela Denton MD [address] [place] [address] Referring Physician Gastroenterology 06/19/22 Lexis Barroso OD [address] [place] [address] Office Cleaner 09/19/22 documented as of this encounter
--- OUTSIDE RECORDS SUMMARY | 2024-07-12 19:46 | XMS_ITS | Encounter Summary ---
Author Organization [facility] Address [address] [place] [address] Phone Care Team Providers Care C Unix Developer Name Role Phone Servando Torre MD Primary Care Provider [phone]- [phone] Mariela Denton MD Unavailable [phone] [phone] Lexis Barroso OD Unavailable +1- [phone] Encounter Details Date Type Department Care Team (Late st Contact Info) Description 10/14/2022 Orders Only [facility] Gastroenterology [address] [facility] 12th [place] [address] [place] [id number] Lexis Renteria RN Skin tag (Primary Dx) Social History Tobacco Use Types [...] on file Legal Sex Female 9:30 AM GM Gender Identity Female 04/05/2022 6:17 PM CDT Sexual Orientation Straight 04/05/2022 6: 17 PM CDT documented as of this encounter Progress Notes * Lexis Renteria RN - 10/14/2022 8:33 AM CDT Referral along with office note, insurance info and face sheet has been faxed to [facility] at [phone]. -------Fax Transmission Report------- To: Recipient at [phone] Subject: Joseph Allen referral (secure) Result: The transmission was successful. Explanation: All Pages Ok Pages Sent: 16 Connect Time: 14 minutes, 10 seconds Transmit Time: 10/14/2022 08:38 Transfer Rate: 9600 Status Code: 0000 Retry Count: 0 Job Id: [id number] Unique Id: [id number] Fax Line: 22 Fax Seed Cone Picker: [email or web address] documented in this encounter Plan of Treatment Not on file documented as of this encounter Visit Diagnoses Diagnosis Skin tag- Primary Unspecified hypertrophic and atrophic condition of skin documented in this encounter Orders Procedures Count Last Ordered Date First Orde red Date ONCBCN OUTPATIENT FACILITY ORDERS 1 023 documented in this encounter Care Teams C Unix Developer Relationship Specialty Start Date End Date Servando Torre MD [facility] [address] [address] PCP - General Family Medicine 06/19/22 Mariela Denton MD [address] [place] [address] Referring Physician Gastroenterology 06/19/22 Lexis Barroso OD [address] [place], [place] [address] Hospital Supervisor 09/19/22 documented as of this encounter
--- OUTSIDE RECORDS SUMMARY | 2024-07-12 19:46 | XMS_ITS | Encounter Summary ---
Author Organization [facility] Address [address] [place] [address] Phone Care Team Providers Care Wireless Telegrapher Name Role Phone Jared Abrams MD Primary Care Provider [phone] Encounter Details Date Type Department Care Team (Late st Contact Info) Description 05/31/2022 Orders Only [facility] Gastroenterology [address] [facility] 12th [place] [address] [place] [address] Janice Baez LPN Low serum vitamin D (Primary Dx) Social History Tobacco Use Types Packs/Day Years Used Date Smoking Tobacco: Never Comments Unknown Sex and Gender Information Value Date Recorded Sex Assigned at Not on file Legal Sex Female 9:30 AM EQUITY RESEARCH ASSOCIATE Gender Identity Female 04/05/2022 6:17 PM CDT Sexual Orientation Straight 04/05/2022 6: 17 PM CDT documented as of this encounter Ordered Prescriptions Prescription Sig Dispense Quantity Refills Last Filled Start Date End Date cholecalciferol (VITAMIN D-3) 2000 unit tabletIndications: Low serum vitamin D Take 1 tablet (2,000 Units total) by mouth daily Low Vitamin D level from 05/30/2022. 90 tablet 3 05/31/2022 documented in this encounter Progress Notes * Janice Baez LPN - 05/31/2022 7:55 AM CDT Low Vitamin D level from 05/30/2022, reviewed by Dr. Denton. Recommendation made for pt to start Vitamin D 2,000 units/d. Rx sent in to pt's local pharmacy. [employer] portal msg sent to pt. documented in this encounter Plan of Treatment Not on file documented as of this encounter Visit Diagnoses Diagnosis Low serum vitamin D- Primary documented in this encounter Care Teams Wireless Telegrapher Relationship Specialty Start Date End Date Jared Abrams MD [address] [place] [address] PCP - General Internal Medicine 05/30/22 06/18/22 documented as of this encounter
--- OUTSIDE RECORDS SUMMARY | 2024-07-12 19:47 | XMS_ITS | Encounter Summary ---
Author Organization [facility] Address [address] [place] [address] Phone Care Team Providers Care Staking Technician Name Role Phone Unavailable Primary Care Provider Unavailabl e Reason for Visit * Reason Onset Date Comments Normal TPMT from 05/14/2022 05/20/2022 Encounter Details Date Type Department Care Team (Late st Contact Info) Description 05/20/2022 Documentation [facility] Gastroenterology [address] [facility] 12th [place] [address] [place] [address] Janice Baez LPN Normal TPMT from 05/14/2022 Social History Tobacco Use Types Packs/Day Years Used Date Smoking Tobacco: Never Comments Unknown Sex and Gender Information Value Date Recorded Sex Assigned at Not on file Legal Sex Female 9:30 AM AGRICULTURAL PURCHASING AGENT Gender Identity Female 04/05/2022 6:17 PM CDT Sexual Orientation Straight 04/05/2022 6: 17 PM CDT documented as of this encounter Progress Notes * Janice Baez LPN - 05/20/2022 8:55 AM CDT Images from the original note were not included. Below report also forwarded to scanning. Reviewed by CONSTANZA Zelaya. TPMT normal. Pt is scheduled to establish care with Dr. Denton on 05/30/2022. documented in this encounter Plan of Treatment Not on file documented as of this encounter Visit Diagnoses Not on filedocumented in this encounter
--- OUTSIDE RECORDS SUMMARY | 2024-07-12 19:47 | XMS_ITS | Encounter Summary ---
Author Organization [facility] Address [address] [place] [address] Phone Care Team Providers Care Feed Mill Supervisor Name Role Phone Jared Abrams MD Primary Care Provider [phone] Encounter Details Date Type Department Care Team (Late st Contact Info) Description 05/30/2022 10:30 AM CDT Office Visit [facility] Gastroenterology [address] [facility] 12th [place] [address] [place] [address] Mariela Denton MD [address] [place] [address] Ulcerative colitis with complication, unspecified location (HCC) (Primary Dx); Encounter for director long term care current azathioprine therapy; High risk medications (not anticoagulants) long-term use Social History Tobacco Use Types Packs/Day Years Used Date Smoking Tobacco: Never Tobacco Cessation:Counseling Given: Not Answered Comments Unknown Sex and Gender Information Value Date Recorded Sex Assigned at Not on file Legal 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 Gender Identity Female 04/05/2022 6:17 PM CDT Sexual Orientation Straight 04/05/2022 6: 17 PM CDT documented as of this encounter Last Filed Vital Signs Vital Sign Reading Time Taken Comments Blood Pressure 161/72 05/30/2022 10:28 AM CDT Pulse 68 05/30/2022 10:28 AM CDT Temperature 37 ??C (98.6 ??F) 05/30/2022 10:28 AM CDT Respiratory Rate - - Oxygen Saturation - - Inhaled Oxygen Concentration - - Weight 68.7 kg (151 lb 6.4 oz) 05/30/2022 10:28 AM CDT Height 157.5 cm (5' 2 ) 05/30/2022 10:28 AM CDT Body Mass Index 27.69 05/30/2022 10:28 AM CDT documented in this encounter Patient Instructions * Patient Instructions* Lexis Renteria RN - 05/30/2022 10:30 AM CDT Return office visit is needed in 3 months Please obtain the updated Covid booster today Onboarding labs ordered to complete at [facility] today We will submit for Entio approval. We will keep you updated on this process. Please stop taking the probiotic, B12, and Apriso A prescription for Uceris 9mg will be sent to your pharmacy Please restart your Lialda- 4 tablets daily documented in this encounter Ordered Prescriptions Prescription Sig Dispense Quantity Refills Last Filled Start Date End Date budesonide DR/ER (UCERIS) 9 mg tablet, delayed & ext.releaseIndicat ions:Ulcerative Colitis Take 1 tablet (9 mg total) by mouth daily 30 tablet 05/30/2022 02/07/2023 documented in this encounter Progress Notes * Bartolo Dee MD - 05/30/2022 10:30 AM CDT Images from the original note were not included. [facility]STRO[facility]OLOGY Clinic Address: [address] [place] [address], [address], [place] [address] Mailing Address: [address] [address] Inflammatory Bowel Disease Initial Office Visit Note NAME: Lisa Allen : 1945 DOS: 05/30/2022 Reason for referral: Ulcerative colitis Consult requested by: ReferringJose Juan MD Primary Care Physician: Jared Abrams MD Chief complaint: Establish care for ulcerative colitis Problem List San-ulcerative colitis DMII GERD HTN Medications Amlodipine Azathioprine 100 mg daily Metoprolol Ferrous sulfate Multivitamin Probiotic Metformin Vitamin B12 Protonix Pravastatin Aspirin HPI Ms. Allen is a 77 y.o. female with history of ulcerative colitis who presents to establish care for the same. She presented 02/2020 to an outside provider with diarrhea and abdominal pain; she underwent colonoscopy which showed san-chronic active colitis. She was on steroids for 2 weeks, then started on lialda 4.8 g daily. Though outside provider notes state that her BM frequency and consistency improved, she states that this was not the case, as she was having ~10 BMs/day on lialda 4.8. Her dose was decreased to 2.4 g, per patient due to miscommunication regarding her being able to afford 4.8 g. Her symptoms were unchanged on 2.4 g, as was the case when she was ultimately switched to apriso (again due to miscommunication regarding the cost of lialda). She was on apriso 2 tabs daily, then 4 tabs toni y. On apriso 4 tabs daily, she underwent flex sig 10/08/21- moderately active chronic colitis noted.In 12/2021 she was started on AZA 50 mg daily, and she was told to stop apriso due to L shoulder pain; she was also given flagyl x7 days. In 03/2022, without metabolites having been checked, her dose was increased to 100 mg daily. Since diagnosis she states that she has continued to have urgency and 8-10 BMs/day, with rare low back/lower abd pain. Over the last few months, she thinks she has lost 5-10 pounds, and her appetite has been poor. She denies hematochezia, N/V, fevers/chills, rash, eye issues, or other joint pain (aside from chronic L shoulder pain). Patient Active Problem List Diagnosis Arthralgia of hip Stress fracture Ear ringing Asymmetrical sensorineural hearing loss History reviewed. No pertinent past medical history. History reviewed. No pertinent surgical history. Current Outpatient Medications: amLODIPine (NORVASC) 5 mg tablet, Take 5 mg by mouth daily, Disp: , Rfl: aspirin 81 mg enteric coated tablet, Take 81 mg by mouth daily, Disp: , Rfl: azaTHIOprine (IMURAN) 100 mg tablet, Take 100 mg by mouth daily, Disp: , Rfl: cyanocobalamin (Vitamin B-12) 500 mcg tablet, Take 500 mcg by mouth daily, Disp: , Rfl: ferrous sulfate ER 324 mg (65 mg iron) EC tablet, Take 65 mg by mouth, Disp: , Rfl: Lactobacillus acidophilus (PROBIOTIC ORAL), Take by mouth, Disp: , Rfl: metFORMIN (GLUCOPHAGE) 500 mg tablet, Take 500 mg by mouth 2 (two) times a day with meals, Disp: , Rfl: metoprolol tartrate (LOPRESSOR) 50 mg immediate release tablet, Take 50 mg by mouth 2 (two) times aday, Disp: , Rfl: multivitamin capsule, Take 1 capsule by mouth daily, Disp: , Rfl: pantoprazole DR (PROTONIX) 40 mg EC tablet, Take 40 mg by mouth daily, Disp: , Rfl: pravastatin (PRAVACHOL) 40 mg tablet, Take 40 mg by mouth daily, Disp: , Rfl: budesonide DR/ER (UCERIS) 9 mg tablet, delayed & ext.release, Take 1 tablet (9 mg total) by mouth daily, Disp: 30 tablet, Rfl: 0 No Known Allergies Family History Problem Relation Age of Onset Atrial fibrillation Mother Breast cancer Mother Stroke Mother Cancer Father Social History Tobacco Use Smoking status: Never Smokeless tobacco: None Substance and Sexual Activity Drug use: None Sexual activity: None Alcohol Use: Not on file ROS As outlined in HPI. All other systems negative. Objective Vital Signs BP 161/72 Pulse 68 Temp 37 ??C (98.6 ??F) Ht 157.5 cm (5' 2 ) Wt 68.7 kg (151 lb 6.4 oz) BMI 27.69 kg/m?? Physical Exam GENERAL: Well-appearing, in no acute distress. HEENT: Sclerae anicteric. Oropharynx without lesion. NECK: Supple without lymphadenopathy. LUNGS: Clear to auscultation bilaterally. CARDIOVASCULAR: Regular rate and rhythm with no murmur. ABDOMEN: soft, non-tender; bowel sounds normal; no masses, no organomegaly RECTAL: negative without mass, lesions or tenderness, deferred, not clinically indicated. EXTREMITIES: No clubbing, cyanosis or edema, or evident deformity SKIN: No rash or jaundice. NEUROLOGIC: Grossly nonfocal on simple observation with normal insight, memory, affect, and orientation, and no focal weakness evident Results: Labs Lab Results Component Value Date WBC 9.3 05/30/2022 HGB 13.1 05/30/2022 HCT 42.4 05/30/2022 MCV 91.2 05/30/2022 LABPLAT 332 05/30/2022 Lab Results Component Value Date GLUCOSE 100 05/30/2022 CALCIUM 10.1 05/30/2022 SODIUM 141 05/30/2022 POTASSIUM 4.0 05/30/2022 CO2 30 05/30/2022 CHLORIDE 101 05/30/2022 BUNSER 11 05/30/2022 CREATININE 0.83 05/30/2022 Lab Results Component Value Date ALT 19 05/30/2022 AST 28 05/30/2022 ALKPHOS 74 05/30/2022 BILITOT 0.4 05/30/2022 Assessment/Plan Ms. Allen is a 77 y.o. female with history of san-ulcerative colitis who presents to establish care for the same. She was diagnosed in 02/2020. She was initially on lialda 4.8 g daily, without improvement in symptoms; she was ultimately changed to 2.4 g, then to apriso due to miscommunication regarding cost being an issue for her. With flex sig 09/2021 showing active disease, she was ultimately started on AZA in 12/2021; initially 50 mg daily, then increased to 100 mg daily in late March (though has not had metabolites checked since starting AZA). She has not noticed improvement in urgency and frequency since starting AZA. We favor short-term minimally absorbed steroids, restarting lialda, checking metabolites (then titrating AZA as needed), while submitting for entyvio. San-ulcerative colitis -Start lialda 4.8 g -Start uceris 9 mg daily x30 days -Continue AZA 100 mg daily -Check metabolites- titrate AZA dose pending these, but ultimately will aim to stop AZA once patient is in remission -Submit for entyvio 2. Healthcare maintenance -Stop probiotic and B12 -Check CBC, iron studies, and B12- pending iron studies, may stop ferrous sulfate (and if don't stop, will change to gluconate) -Received flu shot 05/06/22 -Due for COVID booster today Return to clinic in 3-4 months Bartolo Dee M.D. Gastroenterology Fellow, PGY-6 Cosigned by Mariela Denton MD at 05/30/2022 3:40 PM CDT Associated attestation - Mariela Denton MD - 05/30/2022 3:40 PM CDT I have seen and examined the patient. I agree with the findings and plan of care as documented in the resident/fellow's note. My total encounter time on 05/30/2022 was 45 minutes which was spent in the activities documented in the note. This includes time spent prior to the visit and after the visitin direct care of the patient. This time does not include time spent in any separately reportable services. documented in this encounter Plan of Treatment Not on file documented as of this encounter Results * (ABNORMAL) Vitamin D 25 hydroxy (05/30/2022 12:39 PM CDT) Vitamin D 25-OH 29(L) 30 - 80 ng/mL [facility] Blood 05/30/2022 12:3 9 PM CDT 05/30/2022 12:57 PM CDT us Mariela Denton MD LAB BLOOD ORDERABLE S Final Result [facility] [place] [address] * (ABNORMAL) Vitamin B12 (05/30/2022 12:39 PM CDT) Vitamin B12 >2,000(H) 230 - 1,250 pg/mL [facility] Blood 05/30/2022 12:3 9 PM CDT 05/30/2022 12:57 PM CDT us Mariela Denton MD LAB BLOOD ORDERABLE S Final Result Performing Organization Address City/[facility]/ZIP Co de Phone Number [facility] [place] [address] * Iron profile w/ IBC (05/30/2022 12:39 PM CDT) Iron 98 35 - 145 mcg/dL [facility] TIBC 280 250 - 400 mcg/dL [facility] Transferrin saturation 35 20 - 50 % [facility] Blood 05/30/2022 12:3 9 PM CDT 05/30/2022 12:57 PM CDT us Mariela Denton MD LAB BLOOD [place] [address] * Ferritin (05/30/2022 12:39 PM CDT) Ferritin 75 13 - 150 ng/mL [facility] Blood 05/30/2022 12:3 9 PM CDT 05/30/2022 12:57 PM CDT us Mariela Denton MD LAB BLOOD ORDERABLE S Final Result Performing Organization Address City/[facility] Co de Phone Number [facility] [place] [address] * Erythrocyte sedimentation rate (05/30/2022 12:39 PM CDT) [facility] Erythrocyte sedimentation rate 18 1 - 30 mm/hr [facility] Blood 05/30/2022 12:3 9 PM CDT 05/30/2022 12:57 PM CDT us Mariela Denton MD LAB BLOOD ORDERABLE S Final Result Performing Organization Address [facility] Co de Phone Number [facility] Department [place] [address] * CRP (acute phase) (05/30/2022 12:39 PM CDT) [facility] CRP 0.9 <=10.0 mg/L [facility] Blood 05/30/2022 12:3 9 PM CDT 05/30/2022 12:57 PM CDT us Mariela Denton MD LAB BLOOD ORDERABLE S Final Result Performing Organization Address City/[facility] Co de Phone Number [facility] [place] [address] * Comprehensive metabolic panel (05/30/2022 12:39 PM CDT) [facility] Sodium 141 135 - 145 mmol/L [facility] Potassium, pl 4.0 3.3 - 4.9 mmol/L [facility] Chloride 101 97 - 110 mmol/L [facility] CO2 30 22 - 32 mmol/L [facility] Anion gap 10 2 - 15 mmol/L [facility] BUN 11 8 - 25 mg/dL [facility] Creatinine 0.83 0.60 - 1.10 mg/dL [facility] Glucose 100 70 - 199 mg/dL [facility] Comment: Interpretive Data Fasting glucose >/= 126 [...] Current interpretive data was last revised 2017. Calcium 10.1 8.5 - 10.3 mg/dL [facility] Bilirubin, total 0.4 0.1 - 1.2 mg/dL [facility] Protein, pl 7.4 6.5 - 8.5 g/dL [facility] Albumin 4.3 3.5 - 5.0 g/dL [facility] Alk phos 74 40 - 130 Units/L [facility] ALT 19 7 - 45 Units/L [facility] AST 28 10 - 45 Units/L [facility] Blood 05/30/2022 12:3 9 PM CDT 05/30/2022 12:57 PM CDT us Mariela Denton MD LAB BLOOD ORDERABLE S Final Result [facility] Department [place] [address] * (ABNORMAL) CBC with auto differential (05/30/2022 12:39 PM CDT) WBC 9.3 3.8 - 9.9 K/cumm [facility] Hgb 13.1 11.9 - 15.5 g/dL [facility] Hct 42.4 35.6 - 45.5 % [facility] Plt 332 150 - 400 K/cumm [facility] MPV 9.1 9.1 - 12.3 fL [facility] RBC 4.65 3.90 - 5.20 M/cumm [facility] MCV 91.2 81.3 - 96.4 fL [facility] MCH 28.2 27.1 - 33.3 pg [facility] MCHC 30.9(L) 32.3 - 35.7 g/dL [facility] RDW CV 14.9 11.1 - 14.9 % [facility] RDW SD 49.2(H) 35.7 - 48.1 fL [facility] NRBC abs 0.00 0.00 - 0.01 K/cumm [facility] Blood 05/30/2022 12:3 9 PM CDT 05/30/2022 12:57 PM CDT Mariela Denton MD LAB BLOOD ORDERABLE S Final Result [facility] Department [place] [address] * Thiopurine metabolites (05/30/2022 12:39 PM CDT) 6-TG, bld 293 235 - 450 [facility] Comment:Increased possibilit y of response; optimal dosing. 6-MMP, bld 2999 < or = 5700 [facility] Comment: Decreased risk of hepatotoxicity. ADDITIONAL INFORMATION Testing performed by Liquid Chromatography-Tandem Mass Spectrometry (LC-MS/MS) This test was developed and its performance characteristics determined by [facility] in a manner consistent with CLIA requirements. This test has not been cleared or approved by the U.S. Food and Drug Administration. Test Performed by: [facility] [address] [place] [address] Financial Writer: Holden Redman M.D. Ph.D.; CLIA# [id number] Blood 05/30/2022 12:3 9 PM CDT 05/30/2022 1:03 PM CDT us Mariela Denton MD LAB BLOOD ORDERABLE S Final Result [facility] Department [place] [address] documented in this encounter Visit Diagnoses Diagnosis Ulcerative colitis with complication, unspecified location (HCC)- Primary Encounter for snf current azathioprine therapy High risk medications (not anticoagulants) long-term use Encounter for long-term (current) use of other medications documented in this encounter Historical Medications * This list may reflect changes made after this encounter. multivitamin capsule Take 1 capsule by mouth daily aspirin 81 mg enteric coated tablet Take 1 tablet (81 mg total) by mouth daily 08/27/2023 azaTHIOprine (IMURAN) 100 mg tablet Take 100 mg by mouth daily 06/04/2022 pravastatin (PRAVACHOL) 40 mg tablet Take 40 mg by mouth daily 08/08/[address] (PROTONIX) 40 mg EC tablet Take 40 mg by mouth daily 08/08/2022 cyanocobalamin (Vitamin B-12) 500 mcg tabletIndications :Prevention of Vitamin B12 Deficiency Take 500 mcg by mouth daily 06/19/2022 Lactobacillus acidophilus (PROBIOTIC ORAL) Take by mouth 06/11 ferrous sulfate ER 324 mg (65 mg iron) EC tabletIndications :Iron Deficiency Anemia Take 65 mg by mouth 10/10/2022 metoprolol tartrate (LOPRESSOR) 50 mg immediate release tablet Take 50 mg by mouth 2 (two) times a day 08/08/2022 amLODIPine (NORVASC) 5 mg tablet Take 5 mg by mouth daily 07/07/2022 metFORMIN (GLUCOPHAGE) 500 mg tablet Take 500 mg by mouth 2 (two) times a day with meals 07/02/2022 added in this encounter Care Teams Feed Mill Supervisor Relationship Specialty Start Date End Date Jared Abrams MD [address] [place] [id number] PCP - General Internal Medicine 05/30/22 06/18/22 documented as of this encounter
--- OUTSIDE RECORDS SUMMARY | 2024-07-12 19:47 | XMS_ITS | Encounter Summary ---
Author Organization [facility] Healthcare Address [address] [place] [address] Care Team Providers Care Locker Operator Name Role Phone Jared Abrams MD Primary Care Provider [phone] Encounter Details Date Type Department Care Team (Late st Contact Info) Description 05/30/2022 12:20 PM CDT Lab 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 Gender Identity Female 04/05/2022 6:17 PM CDT Sexual Orientation Straight 04/05/2022 6: 17 PM CDT documented as of this encounter Plan of Treatment Not on file documented as of this encounter Procedures Procedure Name Priority Date/Time Associated Diagnosis Comments EGFR Routine 05/30/2022 12:39 PM CDT Ulcerative colitis with complication, unspecified location (HCC) DIFFERENTIAL AUTO Routine 05/30/2022 12: 39 PM CDT Ulcerative colitis with complication, unspecified location (HCC) THIOPURINE METABOLITES Routine 05/30/2022 12:39 PM CDT Ulcerative colitis with complication, unspecified location (HCC) Encounter for correction current azathioprine therapy High risk medications (not anticoagulants) long-term use IRON PROFILE W/ IBC Routine 05/30/2022 1 2:39 PM CDT Ulcerative colitis with complication, unspecified location (HCC) CBC WITH AUTO DIFFERENTIAL Routine 05/30/2022 12:39 PM CDT Ulcerative colitis with complication, unspecified location (HCC) VITAMIN D 25 HYDROXY Routine 05/30/2022 12:39 PM CDT Ulcerative colitis with complication, unspecified location (HCC) ERYTHROCYTE SEDIMENTATION RATE Routine 05/30/2022 12:39 PM CDT Ulcerative colitis with complication, unspecified location (HCC) CRP (ACUTE PHASE) Routine 05/30/2022 12: 39 PM CDT Ulcerative colitis with complication, unspecified location (HCC) FERRITIN Routine 05/30/2022 12:39 PM CDT Ulcerative colitis with complication, unspecified location (HCC) VITAMIN B12 Routine 05/30/2022 12:39 PM CDT Ulcerative colitis with complication, unspecified location (HCC) COMPREHENSIVE METABOLIC PANEL Routine 05/30/2022 12:39 PM CDT Ulcerative colitis with complication, unspecified location (HCC) documented in this encounter Results * (ABNORMAL) eGFR (05/30/2022 12:39 PM CDT) [facility] eGFR 72(L) 90 - 130 mL/min/1. 73 m2 [facility] Comment: Interpretive Data Reference Interval Normal ?>/= [...] interpretive data was last reviewed 2021. Blood 05/30/2022 12:3 9 PM CDT 05/30/2022 1:07 PM CDT us Mariela Denton MD LAB BLOOD ORDERABLE S Final Result [facility] Department [place] [address] * Differential, auto (05/30/2022 12:39 PM CDT) Pathologist [facility] Neutrophil abs 6.4 1.7 - 6.5 K/cumm [facility] Imm gran abs 0.1 0.0 - 0.1 K/cumm [facility] Lymphocyte abs 2.2 0.8 - 3.3 K/cumm [facility] Monocyte abs 0.5 0.2 - 0.8 K/cumm [facility] Eosinophil abs 0.2 0.0 - 0.5 K/cumm [facility] Basophil abs 0.0 0.0 - 0.1 K/cumm [facility] Neutrophil pct 68.1 % [facility] Comment: Interpretive Data Percent cell count reference ranges are not reported, since discordance with absolute values may lead to misinterpretation of CBC data. Current Interpretive Data was last revised on 2017. Imm gran pct 0.5 % [facility] Comment: Interpretive Data Percent cell count reference ranges are not reported, since discordance with absolute values may lead to misinterpretation of CBC data. Current Interpretive Data was last revised on 2017. Lymphocyte pct 23.3 % [facility] Comment: Interpretive Data Percent cell count reference ranges are not reported, since discordance with absolute values may lead to misinterpretation of CBC data. Current Interpretive Data was last revised on 2017. Monocyte pct 5.8 % [facility] Comment: Interpretive Data Percent cell count reference ranges are not reported, since discordance with absolute values may lead to misinterpretation of CBC data. Current Interpretive Data was last revised on 2017. Eosinophil pct 1.9 % [facility] Comment: Interpretive Data Percent cell count reference ranges are not reported, since discordance with absolute values may lead to misinterpretation of CBC data. Current Interpretive Data was last revised on 2017. Basophil pct 0.4 % [facility] Comment: Interpretive Data Percent cell count reference ranges are not reported, since discordance with absolute values may lead to misinterpretation of CBC data. Current Interpretive Data was last revised on 2017. Blood 05/30/2022 12:3 9 PM CDT 05/30/2022 12:57 PM CDT us Mariela Denton MD LAB BLOOD ORDERABLE S Final Result [facility] Department [place] [address] * Thiopurine metabolites (05/30/2022 12:39 PM CDT) 6-TG, bld 293 235 - 450 [facility] Comment:Increased possibilit y of response; optimal dosing. 6-MMP, bld 2999 < or = 5700 [facility] Comment: Decreased risk of hepatotoxicity. ADDITIONAL INFORMATION Testing performed by Liquid Chromatography-Tandem Mass Spectrometry (LC-MS/MS) This test was developed and its performance characteristics determined by [facility] in a manner consistent with CLIA requirements. This test has not been cleared or approved by the U.S. Food and Drug Administration. Test Performed by: [facility] [address] [place] [address] Senior Datastage Developer: Holden Redman M.D. Ph.D.; CLIA# [id number] Blood 05/30/2022 12:3 9 PM CDT 05/30/2022 1:03 PM CDT us Mariela Denton MD LAB BLOOD ORDERABLE S Final Result [facility] Department [place] [address] * (ABNORMAL) CBC with auto differential (05/30/2022 12:39 PM CDT) Pathologist [facility] WBC 9.3 3.8 - 9.9 K/cumm [facility] Hgb 13.1 11.9 - 15.5 g/dL [facility] Hct 42.4 35.6 - 45.5 % [facility] Plt 332 150 - 400 K/cumm [facility] MPV 9.1 9.1 - 12.3 fL [facility] RBC 4.65 3.90 - 5.20 M/cumm [facility] MCV 91.2 81.3 - 96.4 fL [facility] MCH 28.2 27.1 - 33.3 pg [facility] MCHC 30.9(L) 32.3 - 35.7 g/dL [facility] RDW CV 14.9 11.1 - 14.9 % [facility] RDW SD 49.2(H) 35.7 - 48.1 fL [facility] NRBC abs 0.00 0.00 - 0.01 K/cumm [facility] Blood 05/30/2022 12:3 9 PM CDT 05/30/2022 12:57 PM CDT us Mariela Denton MD LAB BLOOD ORDERABLE S Final Result [facility] Department [place] [address] * Comprehensive metabolic panel (05/30/2022 12:39 PM CDT) Sodium 141 135 - 145 mmol/L [facility] Potassium, pl 4.0 3.3 - 4.9 mmol/L [facility] Chloride 101 97 - 110 mmol/L [facility] CO2 30 22 - 32 mmol/L [facility] Anion gap 10 2 - 15 mmol/L [facility] BUN 11 8 - 25 mg/dL [facility] Creatinine 0.83 0.60 - 1.10 mg/dL [facility] Glucose 100 70 - 199 mg/dL [facility] Comment: Interpretive Data Fasting glucose >/= 126 [...] 2017. Calcium 10.1 8.5 - 10.3 mg/dL [facility] Bilirubin, total 0.4 0.1 - 1.2 mg/dL [facility] Protein, pl 7.4 6.5 - 8.5 g/dL [facility] Albumin 4.3 3.5 - 5.0 g/dL [facility] Alk phos 74 40 - 130 Units/L [facility] ALT 19 7 - 45 Units/L [facility] AST 28 10 - 45 Units/L [facility] Blood 05/30/2022 12:3 9 PM CDT 05/30/2022 12:57 PM CDT us Mariela Denton MD LAB BLOOD ORDERABLE S Final Result [facility] Department [place] [address] * CRP (acute phase) (05/30/2022 12:39 PM CDT) CRP 0.9 <=10.0 mg/L [facility] Blood 05/30/2022 12:3 9 PM CDT 05/30/2022 12:57 PM CDT us Mariela Denton MD LAB BLOOD ORDERABLE S Final Result [facility] Department [place] [address] * Erythrocyte sedimentation rate (05/30/2022 12:39 PM CDT) Erythrocyte sedimentation rate 18 1 - 30 mm/hr [facility] Blood 05/30/2022 12:3 9 PM CDT 05/30/2022 12:57 PM CDT us Mariela Denton MD LAB BLOOD ORDERABLE S Final Result [facility] Department [place] [address] * Ferritin (05/30/2022 12:39 PM CDT) Ferritin 75 13 - 150 ng/mL [facility] Blood 05/30/2022 12:3 9 PM CDT 05/30/2022 12:57 PM CDT us Mariela Denton MD LAB BLOOD ORDERABLE S Final Result [facility] [place] [address] * Iron profile w/ IBC (05/30/2022 12:39 PM CDT) Pathologist [facility] Iron 98 35 - 145 mcg/dL [facility] TIBC 280 250 - 400 mcg/dL [facility] Transferrin saturation 35 20 - 50 % [facility] Blood 05/30/2022 12:3 9 PM CDT 05/30/2022 12:57 PM CDT us Mariela Denton MD LAB BLOOD ORDERABLE S Final Result [facility] [place] [address] * (ABNORMAL) Vitamin B12 (05/30/2022 12:39 PM CDT) [facility] Vitamin B12 >2,000(H) 230 - 1,250 pg/mL [facility] Blood 05/30/2022 12:3 9 PM CDT 05/30/2022 12:57 PM CDT us Mariela Denton MD LAB BLOOD ORDERABLE S Final Result [facility] Department [place] [address] * (ABNORMAL) Vitamin D 25 hydroxy (05/30/2022 12:39 PM CDT) Vitamin D 25-OH 29(L) 30 - 80 ng/mL [facility] Blood 05/30/2022 12:3 9 PM CDT 05/30/2022 12:57 PM CDT us Mariela Denton MD LAB BLOOD ORDERABLE S Final Result [facility] Department [place] [address] documented in this encounter Visit Diagnoses Diagnosis Ulcerative colitis with complication, unspecified location (HCC) 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
--- OUTSIDE RECORDS SUMMARY | 2024-07-12 19:47 | XMS_ITS | Encounter Summary ---
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 Hospital [facility] See MD [address] [facility] [address] [place] [address] Pain in joint, pelvic region and thigh; History of hip joint replacement by other means; Nonunion of fracture; Localized osteoarthrosis, lower leg; Loose body in knee Social History Tobacco Use Types Packs/Day Years Used Date Smoking Tobacco: Never Assessed Comments Unknown Sex and Gender Information Value Date Recorded Sex Assigned at Not on file 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
--- OUTSIDE RECORDS SUMMARY | 2024-07-12 19:47 | XMS_ITS | Encounter Summary ---
Author Organization [facility] Facility Care Team Providers Care Lamp Shade Joiner Name Role Phone Unavailable Primary Care Provider Unavailabl e Encounter Details Date Type Department Care Team (Late st Contact Info) Description 10/04/2013 - 10/04/2013 11:59 PM CDT Hospital Encounter [facility] Rick Mcnulty MD [address] [facility] [address] [place] [address] Stress fracture of other bone; Other orthopedic aftercare; Localized osteoarthrosis, lower leg Social History Tobacco Use Types Packs/Day Years Used Date Smoking Tobacco: Never Comments Unknown Sex and Gender Information Value Date Recorded Sex Assigned at Not on file 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 PEDRO PABLO DAUGHERTY M.D. FINAL REPORT The radiology attending physician has personally reviewed this study, and has reviewed and/or edited this written report and agrees with it. ACC# ??Date Time ??Exam [id number] Oct 04, 2013 15:15:00 [id number] Femur 2 views L EXAMINATION: ?Left femur 2 views. HISTORY: ??Left femoral stress fracture. FINDINGS: Two views of the left femur are obtained with 4 exposures compared to prior radiographs from July 08, 2012. A left bipolar hemiarthroplasty in near anatomic alignment with lateral fixation plate and cerclage wires reducing a healed femoral shaft stress fracture at the distal end of the prosthesis are unchanged. 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 Severe patellofemoral knee joint osteoarthritis is again seen. A small chronic appearing fracture of the fibular head is unchanged. No new fracture is seen. ?? IMPRESSION: 1. Unchanged left bipolar hemiarthroplasty in near anatomic alignment with lateral fixation plate and cerclage wires reducing a healed femoral shaft stress fracture at the distal end of the prosthesis. 2. Unchanged left greater trochanteric fracture nonunion. 3. Severe left patellofemoral knee joint osteoarthritis, unchanged. ?? Requested By: RICK JOHNSON M.D. Dictated By: ?? PEDRO PABLO DAUGHERTY M.D. ??on Oct 04 2013 ??5:14P This document has been electronically signed by: VIV OSWALD M.D. on Oct 07 2013 ??5:46P Procedure Note Provider, MD Silvestre - 11/22/2016 VIV OSWALD M.D. PEDRO PABLO DAUGHERTY M.D. FINAL REPORT The radiology attending physician has personally reviewed this study, and has reviewed and/or edited this written report and agrees with it. ACC# Date Time Exam [id number] Oct 04, 2013 15:15:00 [id number] Femur 2 views L EXAMINATION: Left femur 2 views. HISTORY: Left femoral stress fracture. FINDINGS: Two views of the left femur are obtained with 4 exposures compared to prior radiographs from July 08, 2012. A left bipolar hemiarthroplasty in near anatomic alignment with lateral fixation plate and cerclage wires reducing a healed femoral shaft stress fracture at the distal end of the prosthesis are unchanged. 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 Severe patellofemoral knee joint osteoarthritis is again seen. A small chronic appearing fracture of the fibular head is unchanged. No new fracture is seen. IMPRESSION: 1. Unchanged left bipolar hemiarthroplasty in near anatomic alignment with lateral fixation plate and cerclage wires reducing a healed femoral shaft stress fracture at the distal end of the prosthesis. 2. Unchanged left greater trochanteric fracture nonunion. 3. Severe left patellofemoral knee joint osteoarthritis, unchanged. Requested By: RICK JOHNSON M.D. Dictated By: PEDRO PABLO DAUGHERTY M.D. on Oct 04 2013 5:14P This document has been electronically signed by: VIV OSWALD M.D. on Oct 07 2013 5:46P us Historical Provider MD GRAHAM XR PROCEDURES Final R esult documented in this encounter Visit Diagnoses Diagnosis Stress fracture of other bone Other orthopedic aftercare Localized osteoarthrosis, lower leg Localized osteoarthrosis not specified whether primary or secondary, lower leg documented in this encounter
--- OUTSIDE RECORDS SUMMARY | 2024-07-12 19:47 | XMS_ITS | Encounter Summary ---
Author Organization [facility] Address [address] [place] [address] Phone Care Team Providers Care Code Clerk Name Role Phone Unavailable Primary Care Provider Unavailabl e Reason for Visit * Reason Onset Date Comments Lab Order - TPMT 05/07/2022 Encounter Details Date Type Department Care Team (Late st Contact Info) Description 05/07/2022 Documentation [facility] Gastroenterology [address] [facility] [facility] [address] [place] [address] [place] [phone] Coty Sorensen Lab Order - TPMT Social History Tobacco Use Types Packs/Day Years Used Date Smoking Tobacco: Never Comments Unknown Sex and Gender Information Value Date Recorded Sex Assigned at Not on file 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 Gender Identity Female 04/05/2022 6:17 PM CDT Sexual Orientation Straight 04/05/2022 6: 17 PM CDT documented as of this encounter Progress Notes * Coty Sorensen - 05/07/2022 12:59 PM CDT Faxed lab order for TPMT to [facility] ([phone], pt will go in the next couple ofdays to have drawn so the results will be back before her 05/30/22 IOV appointment documented in this encounter Plan of Treatment Scheduled Orders Name Type Priority Associated Diagnoses Orde r Schedule TPMT (Thiopurine Methyltransferase) Enzyme Lab Routine Ulcerative colitis with complication, unspecified location (HCC) Expected: 05/08/2022, Expires: 05/07/2023 documented as of this encounter Visit Diagnoses Diagnosis Ulcerative colitis with complication, unspecified location (HCC)- Primary documented in this encounter
--- OUTSIDE RECORDS SUMMARY | 2024-07-12 19:47 | XMS_ITS | Encounter Summary ---
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
--- OUTSIDE RECORDS SUMMARY | 2024-07-12 19:47 | XMS_ITS | Encounter Summary ---
Author Organization 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 Gender Identity Female 04/05/2022 6:17 PM CDT Sexual Orientation Straight 04/05/2022 6: 17 PM CDT documented as of this encounter Plan of Treatment Not on file documented as of this encounter Procedures Procedure Name Priority Date/Time Associated Diagnosis Comments XR CONSULT OF OUTSIDE FILMS (PEDS ONLY) Routine 10/05/2014 5:02 PM CDT XR CONSULT OF OUTSIDE FILMS (PEDS ONLY) Routine 10/05/2014 5:02 PM CDT documented in this encounter Results * XR Interpretation Of Outside Films (10/05/2014 5:02 PM CDT) Anatomical Region Laterality Modality N/A Radiographic Keyanna ging 10/05/2014 5:02 PM CDT Narrative 10/05/2014 5:06 PM CDT VENITA FINK M.D. FINAL REPORT ACC# ??Date Time ??Exam [id number] Oct 05, 2014 17:02:00 [id number] [facility] Plain Film Reference [id number] Oct 05, 2014 17:02:00 [id number] [facility] Plain Film Reference EXAMINATION: ?Images For Reference Purposes Only IMPRESSION: ?These images have been uploaded for Reference purposes only. ??There will be no separate report generated by a [facility] Radiologist. Requested By: Dictated By: ?? VENITA FINK M.D. ??on Oct 05 2014 ??5:06P This document has been electronically signed by: VENITA FINK M.D. on Oct 05 2014 ??5:06P [id number] Procedure Note Provider, MD Silvestre - 11/22/2016 VENITA FINK M.D. FINAL REPORT ACC# Date Time Exam [id number] Oct 05, 2014 17:02:00 [id number] [facility] Plain Film Reference [id number] Oct 05, 2014 17:02:00 [id number] [facility] Plain Film Reference EXAMINATION: Images For Reference Purposes Only IMPRESSION: These images have been uploaded for Reference purposes only. There will be no separate report generated by a [facility] Radiologist. Requested By: Dictated By: VENITA FINK M.D. on Oct 05 2014 5:06P This document has been electronically signed by: VENITA FINK M.D. on Oct 05 2014 5:06P [id number] us Historical Provider MD GRAHAM XR PROCEDURES Final R esult * XR Interpretation Of Outside Films (10/05/2014 5:02 PM CDT) Anatomical Region Laterality Modality N/A Radiographic Keyanna ging 10/05/2014 5:02 PM CDT Narrative 10/05/2014 5:06 PM CDT VENITA FINK M.D. FINAL REPORT ACC# ??Date Time ??Exam [id number] Oct 05, 2014 17:02:00 [id number] [facility] Plain Film Reference [id number] Oct 05, 2014 17:02:00 [id number] [facility] Plain Film Reference EXAMINATION: ?Images For Reference Purposes Only IMPRESSION: ?These images have been uploaded for Reference purposes only. ??There will be no separate report generated by a [facility] Radiologist. Requested By: Dictated By: ?? VENITA FINK M.D. ??on Oct 05 2014 ??5:06P This document has been electronically signed by: VENITA FINK M.D. on Oct 05 2014 ??5:06P [id number] Procedure Note Provider, Silvestre, - 11/22/2016 VENITA FINK M.D. FINAL REPORT ACC# Date Time Exam [id number] Oct 05, 2014 17:02:00 [id number] [facility] Plain Film Reference [id number] Oct 05, 2014 17:02:00 [id number] [facility] Plain Film Reference EXAMINATION: Images For Reference Purposes Only IMPRESSION: These images have been uploaded for Reference purposes only. There will be no separate report generated by a [facility] Radiologist. Requested By: Dictated By: VENITA FINK M.D. on Oct 05 2014 5:06P This document has been electronically signed by: VENITA FINK M.D. on Oct 05 2014 5:06P [id number] us Historical Provider IMG XR PROCEDURES Final R esult documented in this encounter Visit Diagnoses Not on filedocumented in this encounter
--- OUTSIDE RECORDS SUMMARY | 2024-07-12 19:47 | XMS_ITS | Encounter Summary ---
Author Organization [facility] Facility Care Team Providers Care Repertoire Manager Name Role Phone Unavailable Primary Care Provider Unavailabl e Encounter Details Date Type Department Care Team (Late st Contact Info) Description 04/22/2011 - 04/22/2011 11:59 PM CDT Hospital [facility] MD [address] [facility] [address] [place] [address] Aftercare following joint replacement; Aftercare for healing traumatic fracture of upper leg Social History Tobacco Use Types Packs/Day Years Used Date Smoking Tobacco: Never Assessed Comments Unknown Sex and Gender Information Value Date Recorded Sex Assigned at Not on file 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
--- OUTSIDE RECORDS SUMMARY | 2024-07-12 19:47 | XMS_ITS | Encounter Summary ---
Author Organization [facility] Facility Care Team Providers Care Flask Pusher Name Role Phone Unavailable Primary Care Provider Unavailabl e Encounter Details Date Type Department Care Team (Late st Contact Info) Description 07/08/2012 - 07/08/2012 11:59 PM BARREL FILLER [place] Hospital [facility] MD [address] [facility] [address] [place] [address] Stress fracture of other bone; Nonunion of fracture Social History Tobacco Use Types Packs/Day Years Used Date Smoking Tobacco: Never Assessed Comments Unknown Sex and Gender Information Value Date Recorded Sex Assigned at Not on file Legal Sex Female 9:30 AM BARREL FILLER [place] Gender Identity Female 04/05/2022 6:17 PM CDT Sexual Orientation Straight 04/05/2022 6: 17 PM CDT documented as of this encounter Plan of Treatment Not on file documented as of this encounter Visit Diagnoses Diagnosis 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
--- OUTSIDE RECORDS SUMMARY | 2024-07-12 19:47 | XMS_ITS | Encounter Summary ---
Author Organization [facility] Address [address] [place] [address] Phone Care Team Providers Care Mix Crusher Operator Name Role Phone Unavailable Primary Care Provider Unavailabl e Reason for Visit * Reason Onset Date Comments New Patient Appointment 05/06/2022 Encounter Details Date Type Department Care Team (Late st Contact Info) Description 05/06/2022 Documentation [facility] [address] [facility] 12[address] [place] [address] [place] [address] Coty Sorensen New Patient Appointment Social History Tobacco Use Types Packs/Day Years Used Date Smoking Tobacco: Never Comments Unknown Sex and Gender Information Value Date Recorded Sex Assigned at Not on file Legal Sex Female 9:30 AM [employer] CONSULTANT Gender Identity Female 04/05/2022 6:17 PM CDT Sexual Orientation Straight 04/05/2022 6: 17 PM CDT documented as of this encounter Progress Notes * Coty Sorensen - 05/06/2022 11:28 AM CDT LMOM asking pt to call and schedule new pt appointment documented in this encounter Plan of Treatment Not on file documented as of this encounter Visit Diagnoses Not on filedocumented in this encounter
--- OUTSIDE RECORDS SUMMARY | 2024-07-12 19:47 | XMS_ITS | Encounter Summary ---
Author Organization [facility] Facility Care Team Providers Care Electronic Scanner Operator Name Role Phone Unavailable Primary Care Provider Unavailabl e Encounter Details Date Type Department Care Team (Latest Contact Info) Description 02/11/2011 3:14 PM CDT - 02/11/2011 4:00 PM CDT [facility] Rick Cast[facility]eda MD [address] [facility] [address] [place] [address] Stress fracture of shaft of femur; Essential hypertension; Anemia; Obesity; Body mass index 32.0-32.9, adult; Surgical operation with implant of artificial internal device causing abnormal patient reaction, or later complication Social History Tobacco Use Types Packs/Day Years Used Date Smoking Tobacco: Never Assessed Comments Unknown Sex and Gender Information Value Date Recorded Sex Assigned at Not on file Legal Sex Female 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
== END 2024-07-09 15:20 ==
LOC: ANHED 14:20
PROVIDERS: Emergency Provider Emergency Medicine; PCP Family Medicine
DX: S00.03XA Contusion of scalp, initial encounter (principal); I10 Essential (primary) hypertension; E78.5 Hyperlipidemia, unspecified; R73.03 Prediabetes; G31.84 Mild cognitive impairment of uncertain or unknown etiology; K51.90 Ulcerative colitis, unspecified, without complications; K21.9 Gastro-esophageal reflux disease without esophagitis; Z79.84 Long term (current) use of oral hypoglycemic drugs; Z79.82 Long term (current) use of aspirin; Z79.899 Other long term (current) drug therapy; W01.0XXA Fall on same level from slipping, tripping and stumbling without subsequent striking against object, initial encounter
CPT/HCPCS: 70450; 72125; 99282; 99284

== ENCOUNTER 2024-07-11 08:23 | Emergency (ER) | payer MEDICARE, SELFPAY ==
--- NOTE | ~2024-07-11 | CT_ITS ---
CT head without contrast Indication: Head injury Comparison 07/09/2024 Technique: Serial scans were obtained through the brain without the administration of contrast. Dose reduction technique was used on this scan by utilizing automated exposure control and iterative recon struction technique. The dose-length product (DLP) was 605.33 mGy-cm. Findings: There is no evidence of intracranial hemorrhage, mass lesion, or acute infarct. The ventri cles and subarachnoid spaces are dilated, consistent with mild atrophy. Low attenuation regions are seen within the periventricular white matter bilaterally, likely representing changes from chronic mi crovascular ischemic disease. There is no evidence of edema, mass effect or midline shift. The visu alized paranasal sinuses and mastoid air cells are clear. Impression: No intracranial hemorrhage, mass, or acute infarct. Atrophy and chronic white matter changes, as above. Reviewed, dictated and finalized at [facility]. ANICAL SERVICE REPRESENTATIVE Impression: No intracranial hemorrhage, mass, or acute infarct. Atrophy and chronic white matter changes, as above.
[2024-07-11 08:25] VITALS: BP 113/60; PULSE 58; RESP 16; TEMP 36.6; O2SAT 97
--- NOTE | 2024-07-11 08:42 | ED.GENADULT ---
HPI - General Adult General Chief complaint: Head Injury Stated complaint: head injury Time Seen by Provider: 07/11/24 08:28 History of Present Illness HPI narrative: patient is a 79-year-old female who presents emergency department with chief complaint of head injury. The patient reports that she sat down on a chair in a awkward angle and was wearing clothing that was slick the patient reports that she slid out of the chair fell struck her head the patient reports no loss of consciousness but reports that she is on aspirin. The patient reports he is unsure of her last tetanus shot Related Data Home Medications ?Medication ?Instructions ?Recorded ?Confirmed ?Last Taken ?Type amlodipine 5 mg tablet 5 mg PO DAILY 08/18/21 03/20/24 03/20/24 History mesalamine 0.375 gram 0.75 g PO BID 08/18/21 03/20/24 03/20/24 History capsule,extended release 24 hr metoprolol tartrate 50 mg tablet 50 mg PO BID 08/18/21 03/20/24 03/20/24 History multivitamin with minerals 1 tablet PO DAILY 08/18/21 03/20/24 03/20/24 History pantoprazole 40 mg tablet,delayed 40 mg PO QPM 08/18/21 03/20/24 03/19/24 History release ferrous sulfate 324 mg (65 mg 324 mg PO DAILY 06/03/23 03/20/24 03/20/24 History iron) tablet,delayed release metformin 750 mg tablet,extended 750 mg PO DAILY 06/03/23 03/20/24 03/20/24 History release 24 hr vedolizumab 300 mg DIRECTED 06/03/23 03/20/24 02/05/24 History aspirin 81 mg capsule 81 mg PO HS 03/20/24 03/20/24 03/19/24 History buspirone 5 mg tablet 5 mg PO BID 03/20/24 03/20/24 03/20/24 History losartan 100 mg tablet 100 mg PO 03/20/24 03/20/24 03/19/24 History pravastatin 40 mg tablet 40 mg PO DAILY 03/20/24 03/20/24 03/20/24 History rivastigmine 4.6 mg/24 hour 4.6 mg topical 08/24/24 08/24/24 08/22/24 History transdermal patch Allergies Allergy/AdvReac Type Severity Reaction Status Date / Time Penicillins Allergy Rash Verified 06/10/24 01:31 Review of Systems Review of Systems: A 10 system review of systems was completed on the patient and is negative except for what is stated in the HPI. Nursing and ancillary documentation was reviewed. [facility] Past Medical History Medical History Complex partial seizures MCI (mild cognitive impairment) Deafness in right ear Gastroesophageal reflux disease Prediabetes Hyperlipidemia Ulcerative colitis Hypertension Surgical History Surgical History History of dilation and curettage History of hip surgery Left hip surgery. Family History Family History Mother Diabetes mellitus Hypertension Cancer Cerebrovascular accident Afib Father Cancer Social History Social History Social History: Lives in [place]. Nonsmoker. No alcohol or illicit substance use. 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 Surrogate decision maker: Aby Riley, daughter. Code status: Full code. Smoking status: Never smoker Alcohol intake: never Substance use: never Substance use type: does not use Do You Feel Safe in your Home?: Yes Lack of Transportation: No Lack of Food: Never True Current Housing: I Have Housing Concerned About Future Housing: No Difficulty Paying Gas/Electric Bills: No Difficulty Paying for Meds: No Currently Unemployed: No Education: High School Diploma/GED Difficulty w/ Childcare or Family Care: No Spiritual care concerns: No Exam Narrative: GENERAL: Well-appearing, well-nourished, and in no acute distress. HEAD: Normocephalic, small laceration present the scalp. EYES: PERRLA and EOMI. ENT: Nares clear, no rhinorrhea or epistaxis. Mucous membranes moist. NECK: Supple. CHEST: Clear to auscultation. No respiratory distress. HEART: Regular rate and rhythm. No murmur heard. Normal peripheral pulses. ABDOMEN: Soft, nontender, nondistended, normal active bowel sounds. EXTREMITIES: Normal range of motion. No edema. SKIN: Warm, dry, no rash. NEURO: No focal deficits. Alert and oriented x3. PSYCH: Normal mood and affect. Course Vital Signs Vital signs: Vital Signs Temperature 36.6 C 07/11/24 08:25 Pulse Rate 58 L 07/11/24 08:25 Respiratory Rate 16 07/11/24 08:25 Blood Pressure 113/60 07/11/24 08:25 Pulse Oximetry 97 07/11/24 08:25 Oxygen Delivery Room Air 07/11/24 08:25 Temperature 36.6 C 07/11/24 08:25 Pulse Rate 58 L 07/11/24 08:25 Respiratory Rate 16 07/11/24 08:25 Blood Pressure 113/60 07/11/24 08:25 Pulse Oximetry 97 07/11/24 08:25 Oxygen Delivery Room Air 07/11/24 08:25 Procedures Laceration Laceration 1: Date: 07/11/24 Time: 10: Site: scalp Size (cm): 2 Description: linear ====== Skin Level ====== Skin layer closed with: claudia Number of sutures: 3 ====== Subcutaneous Layer ====== ====== Muscle Layer ====== ====== Tendon Layer ====== Medical Decision Making MDM Narrative Medical decision making narrative: differential diagnosis includes head injury, scalp laceration, CT head showed no acute abnormalities the laceration was repaired Vital Signs Vital Signs: Vital Signs Temperature 36.6 C 07/11/24 08:25 Pulse Rate 58 L 07/11/24 08:25 Respiratory Rate 16 07/11/24 08:25 Blood Pressure 113/60 07/11/24 08:25 Pulse Oximetry 97 07/11/24 08:25 Oxygen Delivery Room Air 07/11/24 08:25 Temperature 36.6 C 07/11/24 08:25 Pulse Rate 58 L 07/11/24 08:25 Respiratory Rate 16 07/11/24 08:25 Blood Pressure 113/60 07/11/24 08:25 Pulse Oximetry 97 07/11/24 08:25 Oxygen Delivery Room Air 07/11/24 08:25 Discharge Plan Discharge Clinical Impression: Laceration of scalp, Head injury Patient Disposition: Home, Self-Care Condition: Stable Instructions: Antibiotic Form, Head Injury (ED), Staple Care (ED) Additional Instructions: you have 3 claudia in your scalp they should be removed in 7-10 days Patient Language: Maldivian Prescriptions: No Action amlodipine 5 mg tablet 5 mg PO DAILY pantoprazole 40 mg tablet,delayed release (DR/EC) 40 mg PO QPM metoprolol tartrate 50 mg tablet 50 mg PO BID mesalamine 0.375 gram capsule,extended release 24hr 0.75 g PO BID multivitamin with minerals Tablet 1 tablet PO DAILY metformin 750 mg tablet extended release 24 hr 750 mg PO DAILY vedolizumab 300 mg 300 mg DIRECTED Rx Instructions: Every 8 weeks ferrous sulfate 324 mg (65 mg iron) tablet,delayed release (DR/EC) 324 mg PO DAILY buspirone 5 mg tablet 5 mg PO BID pravastatin 40 mg tablet 40 mg PO DAILY losartan 100 mg tablet 100 mg PO HS rivastigmine 4.6 mg/24 hour patch 24 hour 4.6 mg topical HS aspirin 81 mg Capsule 81 mg PO HS lamotrigine [Lamictal] 25 mg Tablet 25 mg PO Q12HR Qty: 60 0RF lamotrigine [Lamictal] 100 mg Tablet 100 mg PO Q12HR Qty: 60 0RF levofloxacin 750 mg tablet 750 mg PO DAILY Qty: 1 0RF Rx Instructions: Take your final tablet on 03/22/24. lacosamide [Vimpat] 100 mg tablet 100 mg PO Q12H Qty: 60 0RF lamotrigine 200 mg tablet 200 mg PO BID Qty: 60 1RF lamotrigine 25 mg tablet 25 mg PO BID 14 Days Qty: 28 0RF cephalexin 500 mg capsule 500 mg PO Q12H 7 Days Qty: 14 0RF acetaminophen 650 mg tablet extended release 650 mg PO Q8H PRN (Reason: pain) Qty: 20 0RF Follow-up/Referrals: Yelitza,Servando Bernstein MD [Primary Care Provider] - Time of Disposition: 10:31
[2024-07-11] MEDS: TETANUS,DIPHTHERIA,AC PERTUSSIS ADULT (0.5 ML) BOOSTRIX IM (09:05)
[2024-07-11 10:30] VITALS: BP 120/60; PULSE 62; RESP 16; TEMP 36.8; O2SAT 99
--- NOTE | 2024-07-11 10:40 | PC.NURSE ---
[place] inserted per Dr. Rucker. Pt tolerated well
--- OUTSIDE RECORDS SUMMARY | 2024-07-15 17:12 | XMS_ITS | Encounter Summary ---
Author Organization [facility] Address [address] [facility] [place] [address] [place] [address] Care Team Providers Care Data Security Administrator Name Role Phone Servando Torre MD Primary Care Provider [phone] Encounter Details Date Type Department Care Team (Late st Contact Info) Description 04/05/2024 Orders Only [facility] [address] [place] [address] Derick Martínez MD [address] [facility] [address] [place] [address] Social History Tobacco Use Types Packs/Day Years [...] st Contact Info) Description 08/03/2024 2:00 PM CARD PAINTER Appointment [address] [address] Josué Cook MD [address] [address] documented as of this encounter Goals Goal Patient Goal Type Associated Problems Recent Progress Patient-Stated? Author HOME TO [facility]IV[facility] No Vannessa Blackwell RN documented as of this encounter Visit Diagnoses Not on filedocumented in this encounter Additional Health Concerns Assessment Noted Time PHQ-9 Depression Total Score: 0 07/06/20 4:06 PM CARD PAINTER documented as of this encounter Care Teams Data Security Administrator Relationship Specialty Start Date End Date Servando Torre MD [address] [place] [address] [address] [place] [address] PCP - General FAMILY PRACTICE 07/17/22 documented as of this encounter
--- OUTSIDE RECORDS SUMMARY | 2024-07-15 17:12 | XMS_ITS | Encounter Summary ---
Author Organization [facility] Address [address] [facility] [place] [address] [place] [address] Care Team Providers Care Aircraft Fueler Name Role Phone Servando Torre MD Primary Care Provider Encounter Details Date Type Department Care Team (Late st Contact Info) Description 08/19/2023 Therapy Plan [facility] [address] [place] [address] Josué Cook MD [address] [place] [address] Social History Tobacco Use Types Packs/Day Years [...] st Contact Info) Description 08/03/2024 2:00 PM SORTER PACKER Appointment [address] [id number] Josué Cook MD [address] [address] documented as of this encounter Goals Goal Patient Goal Type Associated Problems Recent Progress Patient-Stated? Author HOME TO [facility]DEPENDENT LIVING [facility] No Vannessa Blackwell RN documented as of this encounter Visit Diagnoses Diagnosis Abnormal liver function tests- Primary Other abnormal blood chemistry Chronic ulcerative colitis, unspecified complication (CMS/HCC HHS/HCC) documented in this encounter Additional Health Concerns Assessment Noted Time PHQ-9 Depression Total Score: 0 07/06/20 21 4:06 PM SORTER PACKER documented as of this encounter Care Teams Aircraft Fueler Relationship Specialty Start Date End Date Servando Torre MD [address] [place] [address] [address] [place] [address] PCP - General FAMILY PRACTICE 07/17/22 documented as of this encounter
--- OUTSIDE RECORDS SUMMARY | 2024-07-15 17:12 | XMS_ITS | Encounter Summary ---
Author Organization [facility] Address [address] [place] [address] [place] [address] Care Team Providers Care Cost Control Specialist Name Role Phone Servando Torre MD [...] st Contact Info) Description 08/03/2024 2:00 PM SOLUTION MIXER Appointment [facility] [id number] [place] [address] Josué Cook MD [address] [address] documented as of this encounter Goals Goal Patient Goal Type Associated Problems Recent Progress Patient-Stated? Author HOME TO [facility] Vannessa Light RN documented as of this encounter Visit Diagnoses Not on filedocumented in this encounter Additional Health Concerns Assessment Noted Time PHQ-9 Depression Total Score: 0 07/06/20 21 4:06 PM SOLUTION MIXER documented as of this encounter Care Teams Cost Control Specialist Relationship Specialty Start Date End Date Servando Torre MD [address] [place] [address] [address] [place] [address] PCP - General FAMILY PRACTICE 07/17/22 documented as of this encounter
--- OUTSIDE RECORDS SUMMARY | 2024-07-15 17:12 | XMS_ITS | Clinical Summary ---
Author Organization [facility] Address [address] [facility] [place] [address] [place] [address] Care Team Providers Care Wind Power Project Manager Name Role Phone Servando Torre MD Primary Care Provider [phone] Allergies Active Allergy Reactions Criticality Noted Date [...] tests 05/20/2023 Chronic ulcerative colitis, unspecified complication ([facility]/HCC) 06/18/2022 Ulcerative pancolitis withou t complication ([facility]) 09/04/2021 Overview (09/04/2021): Added automatically from request for surgery [id number] Colitis 03/20/2020 Encounters Date Type Department Care Team Description 05/28/2024 1:43 PM CDT - 05/28/2024 2:55 PM CDT Hospital Encounter [facility] [address] [place] [address] Josué Cook MD Discharge Disposition: Home or [...] st Contact Info) Description 08/03/2024 2:00 PM PROJECT SUPERINTENDENT Appointment [facility] [address] [phone] Josué Cook MD [address] [facility] 8 [place] [address] Health Maintenance Due Date Last Done Comments [...] TO INDEPENDENT LIVING General No Vannessa Blackwell, executive advisor Procedure Name Priority Date/Time Associated Diagnosis Comments [...] NIL 0.01 IU/ML 05/31/20 24 1:56 PM [facility] TB2 AG MINUS NIL 0.04 IU/ML 05/31/20 24 1:56 PM [facility] TB QUANTIFERON NEGATIVE NEGATIVE 05/31/2024 1:56 PM [facility] TB INTERPRETATION M. tuberculosis infection unlikely but cannot be excluded especially when any illness is consistent with TB disease and/or likelihood of progression to disease is increased. ?? In patients at high risk to M. tuberculosis infection, a second test should be considered. 05/31/2024 1:56 PM [facility] 05/28/2024 2:00 PM CDT us Josué Cook MD LABORATORY Final Result [facility] [address] [place] [address], [place] [phone] [id number] * (ABNORMAL) COMPREHENSIVE METABOLIC PANEL (05/28/2024 2:00 PM CDT) [facility] GLUCOSE 145(H) 70 - 99 MG/DL 05/28/2024 2:53 PM CDT [facility] BUN 16 7 - 18 MG/DL 05/28/2024 2:53 PM CDT [facility] CREATININE S/P/B 1.12(H) 0.55 - 1.02 MG/DL 05/28/2024 2:53 PM CDT [facility] SODIUM S/P/B 139 136 - 145 MMOL/L 05/28/2024 2:53 PM CDT [facility] POTASSIUM S/P/B 4.0 3.5 - 5.1 MMOL/L 05/28/2024 2:53 PM CDT [facility] CHLORIDE S/P/B 102 100 - 108 MMOL/L 05/28/2024 2:53 PM CDT [facility] CO2 28.6 21 - 32 MMOL/L 05/28/2024 2:53 PM CDT [facility] CALCIUM S/P/B 9.7 8.5 - 10.1 MG/DL 05/28/2024 2:53 PM CDT [facility] BILIRUBIN TOTAL S/P/B 0.2 0.2 - 1.2 MG/DL 05/28/2024 2:53 PM CDT [facility] TOTAL PROTEIN S/P/B 6.9 6.4 - 8.2 G/DL 05/28/2024 2:53 PM CDT [facility] ALBUMIN S/P/B 3.4 3.4 - 5.0 G/DL 05/28/2024 2:53 PM CDT [facility] AST 19 15 - 37 U/L 05/28/2024 2:53 PM CDT [facility] ALT 19 14 - 55 U/L 05/28/2024 2:53 PM CDT [facility] ALKALINE PHOSPHATASE S/P/B 117 50 - 136 U/L 05/28/2024 2:53 PM CDT [facility] ANION GAP 8.4 5 - 15 MMOL/L 05/28/2024 2:53 PM CDT [facility] BUN CREATININE RATIO 14.3 6 - 26 05/28/2024 2:53 PM CDT [facility] A/G RATIO 1.0 1.0 - 2.0 RATIO 05/28/2024 2:53 PM CDT [facility] GFR ESTIMATE 49(L) >90 ML/MIN/1.7 3 M2 05/28/2024 2:53 PM CDT [facility] Comment: NOTE: eGFR is not calculated for patients <18 years of age. This is an estimated GFR calculation using the new CKD EPI creatinine equation without race and so does not require a correction factor for race. This estimated GFR should not be used for calculating drug doses. 05/28/2024 2:00 PM CDT us Josué Cook MD LABORATORY Final Result [facility] [address] [place] [address], * HEPATITIS B SURFACE AG, EIA (05/28/2024 2:00 PM CDT) HEPATITIS B SURFACE AG NON-REACTI VE NON-REACTI VE 05/28/2024 8:34 PM CDT [facility] 05/28/2024 2:00 PM CDT us Josué Cook MD LABORATORY Final Result Performing Organization Address City/[facility]/ZIP Co de Phone Number [facility] [address] [place] [address], [place] [phone] * HEPATITIS B SURFACE ANTIBODY (05/28/2024 2:00 PM CDT) HEP B SURFACE AB NON-REACTI VE 05/28/2024 11:01 PM CDT [facility] 05/28/2024 2:00 PM CDT us Josué Cook MD LABORATORY Final Result Performing Organization Address City/[facility]/ZIP Co de Phone Number [facility] [address] [place] [address], [place] [phone] * HEPATITIS B CORE ANTIBODY (05/28/2024 2:00 PM CDT) HEP B CORE TOTAL AB NON-REACTI VE NON-REACTI VE 05/28/2024 9:04 PM CDT [facility] 05/28/2024 2:00 PM CDT us Josué Cook MD LABORATORY Final Result Performing Organization Address City/[facility]/ZIP Co de Phone Number [facility] [address] [place] [address], [place] [phone] * C-REACTIVE PROTEIN (05/28/2024 2:00 PM CDT) C-REACTIVE PROTEIN <0.29 <0.29 mg/dL 05/28/2024 8:37 PM CDT [facility] 05/28/2024 2:00 PM CDT Josué Cook MD LABORATORY Final Result [facility] [address] [place] [address], * (ABNORMAL) CBC W/DIFF AUTOMATED (05/28/2024 2:00 PM CDT) WBC 10.79 4.4 - 11.0 x10'3/uL 05/28/2024 2:34 PM CDT [facility] RBC 4.65 4.50 - 5.10 x10'6/uL 05/28/2024 2:34 PM CDT [facility] HGB 13.6 12.3 - 15.3 G/DL 05/28/2024 2:34 PM CDT [facility] HCT 42.1 35.9 - 44.6 % 05/28/2024 2:34 PM CDT [facility] MCV 90.5 80.0 - 96.0 FL 05/28/2024 2:34 PM CDT [facility] MCH 29.2 25.3 - 30.9 PG 05/28/2024 2:34 PM CDT [facility] MCHC 32.3 31.0 - 34.1 G/DL 05/28/2024 2:34 PM CDT [facility] RDW 13.2 12.4 - 15.1 % 05/28/2024 2:34 PM CDT [facility] PLT 288 151 - 353 x10'3/uL 05/28/2024 2:34 PM CDT [facility] MPV 9.7 9.6 - 12.0 FL 05/28/2024 2:34 PM CDT [facility] RBC MORPHOLOGY NORMAL 05/28/2024 2:34 PM CDT [facility] PLT MORPH. NORMAL 05/28/2024 2:34 PM CDT [facility] WBC MORPHOLOGY NORMAL 05/28/2024 2:34 PM CDT [facility] LYMPHOCYTES % 19.5 15.8 - 45.0 % 05/28/2024 2:34 PM CDT [facility] NEUTROPHILS % 70.3 42.1 - 71.9 % 05/28/2024 2:34 PM CDT [facility] MONOCYTES % 7.3 5.7 - 12.5 % 05/28/2024 2:34 PM CDT [facility] EOSINOPHILS 1.9 0.0 - 5.6 % 05/28/2024 2:34 PM CDT [facility] BASOPHILS 0.6 0.0 - 1.3 % 05/28/2024 2:34 PM CDT [facility] ABS. NEUTROPHILS 7.59(H) 1.40 - 6.00 x10'3/uL 05/28/2024 2:34 PM CDT [facility] IMMATURE GRANS % 0.4 0.0 - 0.5 % 05/28/2024 2:34 PM CDT [facility] ABS. LYMPHOCYTES 2.10 0.80 - 4.70 x10'3/uL 05/28/2024 2:34 PM CDT [facility] 05/28/2024 2:00 PM CDT us Josué Cook MD LABORATORY Final Result [facility] [address] [place] [address], [place] [phone] from Last 3 Months Insurance MEDICARE [facility] Advance Directives * Full Code (Latest Code Status on File) Date Activated Date Inactivated Comments 03/20/2020 11:16 AM 03/23/2020 7:48 PM Care Teams Wind Power Project Manager Relationship Specialty Start Date End Date Servando Torre MD [address] [place] [address] [address] [place] [address] PCP - General FAMILY PRACTICE 07/17/22
--- OUTSIDE RECORDS SUMMARY | 2024-07-15 17:12 | XMS_ITS | Encounter Summary ---
Author Organization [facility] Address [address] [facility] [address] [place] [address] Care Team Providers Care Web Content Director Name Role Phone Servando Torre MD Primary Care Provider [phone] Reason for Visit * Treatment/Therapy Plan Authorization (Routine) - Authorized Specialty Diagnoses / Procedures Referred By Angel braswell Referred To Contact Diagnoses Chronic ulcerative colitis, unspecified complication ([facility]/HCC HHS/HCC) Abnormal liver function tests Procedures VEDOLIZUMAB, INJECTION [facility] [address] [place] [address] Phone: tel: [facility] [address] [place] [address] Phone: tel: Referral ID Status Reason Start Date Expiration Date Visits Requested Visits Authorized [id number] Authorized Medication 05/01/2023 07/27/2024 99 99 Encounter Details Date Type Department Care Team (Latest Contact Info) Description 10/07/2023 1:33 PM CDT - 10/07/2023 3:00 PM CDT Hospital Encounter [facility] [address] [place] [address] Josué Cook MD [address] [facility] [address] [place] [address] Discharge Disposition: Home or Self Care (Routine [...] st Contact Info) Description 08/03/2024 2:00 PM HELICOPTER PILOT INSTRUCTOR Appointment [address] [address] Josué Cook MD [address] [facility] 8 [place] [address] documented as of this encounter Goals Goal [...] C-REACTIVE PROTEIN (10/07/2023 1:39 PM CDT) Pathologist [facility] C-REACTIVE PROTEIN <0.29 <0.29 mg/dL 10/07/2023 7:35 PM CDT [facility] 10/07/2023 1:39 PM CDT us Josué Cook MD LABORATORY Final Result [facility] [address] [place] [address], [place] [phone] * (ABNORMAL) CBC W/DIFF AUTOMATED (10/07/2023 1:39 PM CDT) Pathologist [facility] WBC 7.69 4.4 - 11.0 x10'3/uL 10/07/2023 1:59 PM CDT [facility] RBC 4.61 4.50 - 5.10 x10'6/uL 10/07/2023 1:59 PM CDT [facility] HGB 14.1 12.3 - 15.3 G/DL 10/07/2023 1:59 PM CDT [facility] HCT 43.3 35.9 - 44.6 % 10/07/2023 1:59 PM CDT [facility] MCV 93.9 80.0 - 96.0 FL 10/07/2023 1:59 PM CDT [facility] MCH 30.6 25.3 - 30.9 PG 10/07/2023 1:59 PM CDT [facility] MCHC 32.6 31.0 - 34.1 G/DL 10/07/2023 1:59 PM CDT [facility] RDW 13.5 12.4 - 15.1 % 10/07/2023 1:59 PM T [facility] PLT 248 151 - 353 x10'3/uL 10/07/2023 1:59 PM T [facility] MPV 9.4(L) 9.6 - 12.0 FL 10/07/2023 1:59 PM T [facility] RBC MORPHOLOGY NORMAL 10/07/2023 1:59 PM T [facility] PLT MORPH. NORMAL 10/07/2023 1:59 PM T [facility] WBC MORPHOLOGY NORMAL 10/07/2023 1:59 PM T [facility] LYMPHOCYTES % 11.8(L) 15.8 - 45.0 % 10/07/2023 1:59 PM CDT [facility] NEUTROPHILS % 84.7(H) 42.1 - 71.9 % 10/07/2023 1:59 PM CDT [facility] MONOCYTES % 1.8(L) 5.7 - 12.5 % 10/07/2023 1:59 PM T [facility] EOSINOPHILS 0.9 0.0 - 5.6 % 10/07/2023 1:59 PM CDT [facility] BASOPHILS 0.5 0.0 - 1.3 % 10/07/2023 1:59 PM CDT [facility] ABS. NEUTROPHILS 6.51(H) 1.40 - 6.00 x10'3/uL 10/07/2023 1:59 PM CDT [facility] IMMATURE GRANS % 0.3 0.0 - 0.5 % 10/07/2023 1:59 PM CDT [facility] ABS. LYMPHOCYTES 0.91 0.80 - 4.70 x10'3/uL 10/07/2023 1:59 PM CDT [facility] 10/07/2023 1:39 PM CDT us Josué Cook MD LABORATORY Final Result [facility] [address] [place] [id number], [place] [phone] * (ABNORMAL) COMPREHENSIVE METABOLIC PANEL (10/07/2023 1:39 PM CDT) GLUCOSE 185(H) 70 - 99 MG/DL 10/07/2023 2:29 PM CDT [facility] BUN 19(H) 7 - 18 MG/DL 10/07/2023 2:29 PM CDT [facility] CREATININE S/P/B 1.07(H) 0.55 - 1.02 MG/DL 10/07/2023 2:29 PM CDT [facility] SODIUM S/P/B 141 136 - 145 MMOL/L 10/07/2023 2:29 PM CDT [facility] POTASSIUM S/P/B 4.5 3.5 - 5.1 MMOL/L 10/07/2023 2:29 PM CDT [facility] CHLORIDE S/P/B 102 100 - 108 MMOL/L 10/07/2023 2:29 PM [facility] CO2 29.8 21 - 32 MMOL/L 10/07/2023 2:29 PM [facility] CALCIUM S/P/B 9.8 8.5 - 10.1 MG/DL 10/07/2023 2:29 PM [facility] BILIRUBIN TOTAL S/P/B 0.2 0.2 - 1.2 MG/DL 10/07/2023 2:29 PM [facility] TOTAL PROTEIN S/P/B 7.6 6.4 - 8.2 G/DL 10/07/2023 2:29 PM [facility] ALBUMIN S/P/B 3.7 3.4 - 5.0 G/DL 10/07/2023 2:29 PM [facility] AST 12(L) 15 - 37 U/L 10/07/2023 2:29 PM [facility] ALT 18 14 - 55 U/L 10/07/2023 2:29 PM [facility] ALKALINE PHOSPHATASE S/P/B 98 50 - 136 U/L 10/07/2023 2:29 PM [facility] ANION GAP 9.2 5 - 15 MMOL/L 10/07/2023 2:29 PM [facility] BUN CREATININE RATIO 17.8 6 - 26 10/07/2023 2:29 PM [facility] A/G RATIO 0.9(L) 1.0 - 2.0 RATIO 10/07/2023 2:29 PM [facility] GFR ESTIMATE 53(L) >90 ML/MIN/1.7 3 M2 10/07/2023 2:29 PM [facility] Comment: NOTE: eGFR is not calculated for patients <18 years of age. This is an estimated GFR calculation using the new CKD EPI creatinine equation without race and so does not require a correction factor for race. This estimated GFR should not be used for calculating drug doses. 10/07/2023 1:39 PM CDT Josué Cook MD LABORATORY Final Result [facility] [address] [place] [address], * (ABNORMAL) MISCELLANEOUS LAB TEST (10/07/2023 1:39 PM CDT) TEST NAME: [id number] VEDOLIZUMAB 10/07/2023 1:57 PM CDT [facility] SPECIMEN TYPE SERUM 10/07/2023 1:57 PM CDT [facility] TEST RESULT: Flexitest 1(A) 10/14/19 24 4:17 PM CDT [employer] JÚNIOR KATE Comment: Flexitest 1 TESTS RESULTS--------UNITS--REF. RANGE--- Vedolizumab QN, S ?10.9 L ? mcg/mL ?? REFERENCE VALUE Lower limit of quantitation = 2.0 mcg/mL ADDITIONAL INFORMATION This test was developed and its performance characteristics determined by [facility] in a manner consistent with CLIA requirements. This test has not been cleared or approved by the U.S. Food and Drug Administration. Vedolizumab Ab, S ?<9.8 ?ng/mL ??<9.8 VEMAB Interpretation ? REPORT ? RESULT: Absence of detectable xvyceuhh-ml-jzgrtfkrphh. ADDITIONAL INFORMATION This test was developed and its performance characteristics determined by [facility] in a manner consistent with CLIA requirements. This test has not been cleared or approved by the U.S. Food and Drug Administration. Test performed by: ? [facility] [address] ? [address] ? [place] [address] ? Corrugator Operator Helper: Holedn Redman M.D., Ph.D; CLIA# [id number] Test Reported by Sierra Nelson, [facility], [address] [place] [address] Gamal Gao M.D., Ph.D., Director of Laboratories , CLIA [id number] 10/07/2023 1:39 PM CDT Josué Cook MD LABORATORY Final Result Performing Organization Address City/State/[facility] Co de Phone Number [facility] [place] [id number] [place], [place] , [place] [phone] [facility] [address] [place] [address], [place] [phone] documented in this encounter Visit Diagnoses Diagnosis [...] this section may contain times in both HELICOPTER PILOT INSTRUCTOR and CDT. Scheduled Medication Order 10/05/2023 10/06/2023 [...] Total Score: 0 07/06/20 21 4:06 PM HELICOPTER PILOT INSTRUCTOR documented as of this encounter Care Teams Web Content Director Relationship Specialty Start Date End Date Servando Torre MD [address] [place] [address] [address] [place] [address] PCP - General FAMILY PRACTICE 07/17/22 documented as of this encounter
--- OUTSIDE RECORDS SUMMARY | 2024-07-15 17:12 | XMS_ITS | Encounter Summary ---
Author Organization [facility] Address [address] [facility] [place] [address] [place] [address] Care Team Providers Care Hamper Maker Machine Name Role Phone Servando Torre MD [...] st Contact Info) Description 08/03/2024 2:00 PM COMPLETION SUPERVISOR Appointment [facility] [id number] [place] [address] Josué Cook MD [address] [address] documented as of this encounter Goals Goal Patient Goal Type Associated Problems Recent Progress Patient-Stated? Author HOME TO [facility] Vannessa Light RN documented as of this encounter Visit Diagnoses Not on filedocumented in this encounter Additional Health Concerns Assessment Noted Time PHQ-9 Depression Total Score: 0 07/06/20 21 4:06 PM COMPLETION SUPERVISOR documented as of this encounter Care Teams Hamper Maker Machine Relationship Specialty Start Date End Date Servando Torre MD [address] [place] [address] [address] [place] [address] PCP - General FAMILY PRACTICE 07/17/22 documented as of this encounter
--- OUTSIDE RECORDS SUMMARY | 2024-07-15 17:12 | XMS_ITS | Encounter Summary ---
Author Organization [facility] Address [address] [facility] [place] [address] [place] [address] Care Team Providers Care Nipple Machine Operator Name Role Phone Servando Torre MD Primary Care Provider [phone] Reason for Visit * Treatment/Therapy Plan Authorization (Routine) - Authorized Specialty Diagnoses / Procedures Referred By Angel braswell Referred To Contact Diagnoses Chronic ulcerative colitis, unspecified complication ([facility]/HCC HHS/HCC) Abnormal liver function tests Procedures VEDOLIZUMAB, INJECTION [facility] [address] [place] [address] Phone: tel: [facility] [address] [place] [address] Phone: tel: Referral ID Status Reason Start Date Expiration Date Visits Requested Visits Authorized [id number] Authorized Medication 05/01/2023 07/27/2024 99 99 Encounter Details Date Type Department Care Team (Latest Contact Info) Description 02/05/2024 1:49 PM CDT - 02/05/2024 3:15 PM CDT Hospital Encounter [facility] [address] [place] [address] Josué Cook MD [address] [facility] 8 [place] [address] Discharge Disposition: Home or Self Care (Routine [...] st Contact Info) Description 08/03/2024 2:00 PM SPRING FITTER HELPER Appointment [facility] [address] [place] [address] Josué Cook MD [address] [facility] 8 [place] [address] documented as of this encounter Goals Goal Patient Goal Type Associated Problems Recent Progress Patient-Stated? Author HOME TO [facility] Vannessa Light RN documented as [...] <0.29 <0.29 mg/dL 02/05/2024 7:13 PM CDT [facility] 02/05/2024 2:10 PM CDT Josué Cook MD LABORATORY Final Result [facility] [address] [place] [address], [place] [phone] * (ABNORMAL) CBC W/DIFF AUTOMATED (02/05/2024 2:10 PM CDT) WBC 8.60 4.4 - 11.0 x10'3/uL 02/05/2024 2:39 PM CDT [facility] RBC 4.42(L) 4.50 - 5.10 x10'6/uL 02/05/2024 2:39 PM CDT [facility] HGB 13.1 12.3 - 15.3 G/DL 02/05/2024 2:39 PM CDT [facility] HCT 41.1 35.9 - 44.6 % 02/05/2024 2:39 PM CDT [facility] MCV 93.0 80.0 - 96.0 FL 02/05/2024 2:39 PM CDT [facility] MCH 29.6 25.3 - 30.9 PG 02/05/2024 2:39 PM CDT [facility] MCHC 31.9 31.0 - 34.1 G/DL 02/05/2024 2:39 PM CDT [facility] RDW 12.7 12.4 - 15.1 % 02/05/2024 2:39 PM CDT [facility] PLT 247 151 - 353 x10'3/uL 02/05/2024 2:39 PM T [facility] MPV 9.5(L) 9.6 - 12.0 FL 02/05/2024 2:39 PM CDT [facility] RBC MORPHOLOGY NORMAL 02/05/2024 2:39 PM T [facility] PLT MORPH. NORMAL 02/05/2024 2:39 PM CDT [facility] WBC MORPHOLOGY NORMAL 02/05/2024 2:39 PM CDT [facility] LYMPHOCYTES % 22.2 15.8 - 45.0 % 02/05/2024 2:39 PM CDT [facility] NEUTROPHILS % 64.1 42.1 - 71.9 % 02/05/2024 2:39 PM CDT [facility] MONOCYTES % 9.7 5.7 - 12.5 % 02/05/2024 2:39 PM CDT [facility] EOSINOPHILS 2.8 0.0 - 5.6 % 02/05/2024 2:39 PM CDT [facility] BASOPHILS 0.5 0.0 - 1.3 % 02/05/2024 2:39 PM CDT [facility] ABS. NEUTROPHILS 5.52 1.40 - 6.00 x10'3/uL 02/05/2024 2:39 PM CDT [facility] IMMATURE GRANS % 0.7(H) 0.0 - 0.5 % 02/05/2024 2:39 PM CDT [facility] ABS. LYMPHOCYTES 1.91 0.80 - 4.70 x10'3/uL 02/05/2024 2:39 PM CDT [facility] 02/05/2024 2:10 PM CDT Josué Cook MD LABORATORY Final Result [facility] [address] [place] [address], [place] [phone] * (ABNORMAL) COMPREHENSIVE METABOLIC PANEL (02/05/2024 2:10 PM CDT) GLUCOSE 141(H) 70 - 99 MG/DL 02/05/2024 3:19 PM CDT [facility] BUN 19(H) 7 - 18 MG/DL 02/05/2024 3:19 PM CDT [facility] CREATININE S/P/B 1.31(H) 0.55 - 1.02 MG/DL 02/05/2024 3:19 PM CDT [facility] SODIUM S/P/B 140 136 - 145 MMOL/L 02/05/2024 3:19 PM CDT [facility] POTASSIUM S/P/B 4.4 3.5 - 5.1 MMOL/L 02/05/2024 3:19 PM CDT [facility] CHLORIDE S/P/B 105 100 - 108 MMOL/L 02/05/2024 3:19 PM [facility] CO2 31.9 21 - 32 MMOL/L 02/05/2024 3:19 PM [facility] CALCIUM S/P/B 9.5 8.5 - 10.1 MG/DL 02/05/2024 3:19 PM [facility] BILIRUBIN TOTAL S/P/B 0.2 0.2 - 1.2 MG/DL 02/05/2024 3:19 PM [facility] TOTAL PROTEIN S/P/B 6.5 6.4 - 8.2 G/DL 02/05/2024 3:19 PM [facility] ALBUMIN S/P/B 3.4 3.4 - 5.0 G/DL 02/05/2024 3:19 PM [facility] AST 13(L) 15 - 37 U/L 02/05/2024 3:19 PM [facility] ALT 13(L) 14 - 55 U/L 02/05/2024 3:19 PM [facility] ALKALINE PHOSPHATASE S/P/B 102 50 - 136 U/L 02/05/2024 3:19 PM [facility] ANION GAP 3.1(L) 5 - 15 MMOL/L 02/05/2024 3:19 PM [facility] BUN CREATININE RATIO 14.5 6 - 26 02/05/2024 3:19 PM [facility] A/G RATIO 1.1 1.0 - 2.0 RATIO 02/05/2024 3:19 PM [facility] GFR ESTIMATE 41(L) >90 ML/MIN/1.7 3 M2 02/05/2024 3:19 PM [facility] Comment: NOTE: eGFR is not calculated for patients <18 years of age. This is an estimated GFR calculation using the new CKD EPI creatinine equation without race and so does not require a correction factor for race. This estimated GFR should not be used for calculating drug doses. 02/05/2024 2:10 PM CDT Josué Cook MD LABORATORY Final Result [facility] [address] [place] [address], [place] [phone] documented in this encounter Visit Diagnoses Diagnosis [...] Depression Total Score: 0 07/06/20 4:06 PM [employer] documented as of this encounter Care Teams Nipple Machine Operator Relationship Specialty Start Date End Date Servando Torre MD [address] [place] [address] [id number] [place] [address] PCP - General FAMILY PRACTICE 07/17/22 documented as of this encounter
--- OUTSIDE RECORDS SUMMARY | 2024-07-15 17:12 | XMS_ITS | Encounter Summary ---
Author Organization [facility] Address [address] [facility] [place] [address] [place] [address] Care Team Providers Care Batterboard Setter Name Role Phone Servando Torre MD Primary [...] st Contact Info) Description 08/03/2024 2:00 PM MANAGEMENT INTERNSHIP Appointment [facility] [id number] [place] [address] Josué Cook MD [address] [address] documented as of this encounter Goals Goal Patient Goal Type Associated Problems Recent Progress Patient-Stated? Author HOME TO [facility] Vannessa Light RN documented as of this encounter Visit Diagnoses Not on filedocumented in this encounter Additional Health Concerns Assessment Noted Time PHQ-9 Depression Total Score: 0 07/06/20 21 4:06 PM MANAGEMENT INTERNSHIP documented as of this encounter Care Teams Batterboard Setter Relationship Specialty Start Date End Date Servando Torre MD [address] [place] [address] [address] [place] [address] PCP - General FAMILY PRACTICE 07/17/22 documented as of this encounter
--- OUTSIDE RECORDS SUMMARY | 2024-07-15 17:12 | XMS_ITS | Encounter Summary ---
Author Organization [facility] Address [address] [place] [address] [place] [address] Care Team Providers Care Wine Master Name Role Phone Servando Trore MD Primary Care Provider [phone] Encounter Details Date Type Department Care Team [...] st Contact Info) Description 08/03/2024 2:00 PM HEMATOLOGY NURSE EDUCATOR Appointment [facility] [id number] [place] [address] Josué Cook MD [address] [address] documented as of this encounter Goals Goal Patient Goal Type Associated Problems Recent Progress Patient-Stated? Author HOME TO [facility] Vannessa Light RN documented as of this encounter Visit Diagnoses Not on filedocumented in this encounter Additional Health Concerns Assessment Noted Time PHQ-9 Depression Total Score: 0 07/06/20 21 4:06 PM HEMATOLOGY NURSE EDUCATOR documented as of this encounter Care Teams Wine Master Relationship Specialty Start Date End Date Servando Torre MD [address] [place] [address] [address] [place] [address] PCP - General FAMILY PRACTICE 07/17/22 documented as of this encounter
--- OUTSIDE RECORDS SUMMARY | 2024-07-15 17:12 | XMS_ITS | Encounter Summary ---
Author Organization [facility] Address [address] [facility] [place] [address] [place] [address] Care Team Providers Care Stone Mason Name Role Phone Servando Torre MD Primary Care Provider [phone] Reason for Visit * Treatment/Therapy Plan Authorization (Routine) - Authorized Specialty Diagnoses / Procedures Referred By Angel braswell Referred To Contact Diagnoses Chronic ulcerative colitis, unspecified complication ([facility]/HCC HHS/HCC) Abnormal liver function tests Procedures VEDOLIZUMAB, INJECTION [facility] [address] [place] [address] Phone: tel: [facility] [address] [place] [address] Phone: tel: Referral ID Status Reason Start Date Expiration Date Visits Requested Visits Authorized [id number] Authorized Medication 05/01/2023 07/27/2024 99 99 Encounter Details Date Type Department Care Team (Latest Contact Info) Description 04/02/2024 1:53 PM CDT - 04/02/2024 3:07 PM CDT Hospital Encounter [facility] [address] [place] [address] Josué Cook MD [address] [facility] [address] [place] [address] Discharge Disposition: Home or Self Care (Routine [...] st Contact Info) Description 08/03/2024 2:00 PM WELDING MACHINE FEEDER Appointment [address] [address] Josué Cook MD [address] [facility] [address] [place] [address] documented as of this encounter Goals Goal [...] <0.29 <0.29 mg/dL 04/02/2024 7:[address] [facility] 04/02/2024 1:56 PM CDT Josué Cook MD LABORATORY Final Result [facility] [address] [place] [address], [place] [phone] * (ABNORMAL) CBC W/DIFF AUTOMATED (04/02/2024 1:56 PM CDT) Pathologist [facility] WBC 10.39 4.4 - 11.0 x10'3/uL 04/02/2024 2:25 PM CDT [facility] RBC 4.82 4.50 - 5.10 x10'6/uL 04/02/2024 2:25 PM CDT [facility] HGB 14.4 12.3 - 15.3 G/DL 04/02/2024 2:25 PM CDT [facility] HCT 43.8 35.9 - 44.6 % 04/02/2024 2:25 PM CDT [facility] MCV 90.9 80.0 - 96.0 FL 04/02/2024 2:25 PM CDT [facility] MCH 29.9 25.3 - 30.9 PG 04/02/2024 2:25 PM CDT [facility] MCHC 32.9 31.0 - 34.1 G/DL 04/02/2024 2:25 PM CDT [facility] RDW 12.8 12.4 - 15.1 % 04/02/2024 2:25 PM CDT [facility] PLT 268 151 - 353 x10'3/uL 04/02/2024 2:25 PM CDT [facility] MPV 9.3(L) 9.6 - 12.0 FL 04/02/2024 2:25 PM CDT [facility] RBC MORPHOLOGY NORMAL 04/02/2024 2:25 PM CDT [facility] PLT MORPH. NORMAL 04/02/2024 2:25 PM CDT [facility] WBC MORPHOLOGY NORMAL 04/02/2024 2:25 PM CDT [facility] LYMPHOCYTES % 17.7 15.8 - 45.0 % 04/02/2024 2:25 PM T [facility] NEUTROPHILS % 70.2 42.1 - 71.9 % 04/02/2024 2:25 PM CDT [facility] MONOCYTES % 8.2 5.7 - 12.5 % 04/02/2024 2:25 PM CDT [facility] EOSINOPHILS 2.9 0.0 - 5.6 % 04/02/2024 2:25 PM CDT [facility] BASOPHILS 0.6 0.0 - 1.3 % 04/02/2024 2:25 PM CDT [facility] ABS. NEUTROPHILS 7.30(H) 1.40 - 6.00 x10'3/uL 04/02/2024 2:25 PM CDT [facility] IMMATURE GRANS % 0.4 0.0 - 0.5 % 04/02/2024 2:25 PM CDT [facility] ABS. LYMPHOCYTES 1.84 0.80 - 4.70 x10'3/uL 04/02/2024 2:25 PM CDT [facility] 04/02/2024 1:56 PM CDT us Josué Cook MD LABORATORY Final Result [facility] [address] [place] [address], * (ABNORMAL) COMPREHENSIVE METABOLIC PANEL (04/02/2024 1:56 PM CDT) GLUCOSE 164(H) 70 - 99 MG/DL 04/02/2024 2:42 PM CDT [facility] BUN 15 7 - 18 MG/DL 04/02/2024 2:42 PM CDT [facility] CREATININE S/P/B 1.32(H) 0.55 - 1.02 MG/DL 04/02/2024 2:42 PM CDT [facility] SODIUM S/P/B 140 136 - 145 MMOL/L 04/02/2024 2:42 PM CDT [facility] POTASSIUM S/P/B 4.0 3.5 - 5.1 MMOL/L 04/02/2024 2:42 PM CDT [facility] CHLORIDE S/P/B 102 100 - 108 MMOL/L 04/02/2024 2:42 PM CDT [facility] CO2 28.9 21 - 32 MMOL/L 04/02/2024 2:42 PM CDT [facility] CALCIUM S/P/B 9.6 8.5 - 10.1 MG/DL 04/02/2024 2:42 PM [facility] BILIRUBIN TOTAL S/P/B 0.4 0.2 - 1.2 MG/DL 04/02/2024 2:42 PM [facility] TOTAL PROTEIN S/P/B 7.1 6.4 - 8.2 G/DL 04/02/2024 2:42 PM [facility] ALBUMIN S/P/B 3.5 3.4 - 5.0 G/DL 04/02/2024 2:42 PM [facility] AST 23 15 - 37 U/L 04/02/2024 2:42 PM [facility] ALT 20 14 - 55 U/L 04/02/2024 2:42 PM [facility] ALKALINE PHOSPHATASE S/P/B 113 50 - 136 U/L 04/02/2024 2:42 PM [facility] ANION GAP 9.1 5 - 15 MMOL/L 04/02/2024 2:42 PM [facility] BUN CREATININE RATIO 11.4 6 - 26 04/02/2024 2:42 PM [facility] A/G RATIO 1.0 1.0 - 2.0 RATIO 04/02/2024 2:42 PM [facility] GFR ESTIMATE 41(L) >90 ML/MIN/1.7 3 M2 04/02/2024 2:42 PM [facility] Comment: NOTE: eGFR is not calculated for patients <18 years of age. This is an estimated GFR calculation using the new CKD EPI creatinine equation without race and so does not require a correction factor for race. This estimated GFR should not be used for calculating drug doses. 04/02/2024 1:56 PM CDT us Anas K Gremida MD LABORATORY Final Result [facility] [address] [place] [address], [place] [phone] documented in this encounter Visit Diagnoses Diagnosis [...] Total Score: 0 07/06/20 21 4:06 PM WELDING MACHINE FEEDER documented as of this encounter Care Teams Stone Mason Relationship Specialty Start Date End Date Servando Torre MD [address] [place] [address] [address] [place] [address] PCP - General FAMILY PRACTICE 07/17/22 documented as of this encounter
--- OUTSIDE RECORDS SUMMARY | 2024-07-15 17:12 | XMS_ITS | Encounter Summary ---
Author Organization [facility] Address [address] [facility] [place] [address] [place] [address] Care Team Providers Care Service Associate Name Role Phone Servando Torre MD Primary Care Provider [phone] Encounter Details Date Type Department Care Team [...] st Contact Info) Description 08/03/2024 2:00 PM PRIZE FIGHTER Appointment [facility] [id number] [place] [address] Josué Cook MD [address] [address] documented as of this encounter Goals Goal Patient Goal Type Associated Problems Recent Progress Patient-Stated? Author HOME TO [facility] Vannessa Light RN documented as of this encounter Visit Diagnoses Not on filedocumented in this encounter Additional Health Concerns Assessment Noted Time PHQ-9 Depression Total Score: 0 07/06/20 21 4:06 PM PRIZE FIGHTER documented as of this encounter Care Teams Service Associate Relationship Specialty Start Date End Date Servando Torre MD [address] [place] [address] [address] [place] [address] PCP - General FAMILY PRACTICE 07/17/22 documented as of this encounter
--- OUTSIDE RECORDS SUMMARY | 2024-07-15 17:12 | XMS_ITS | Encounter Summary ---
Author Organization [facility] Address [address] [place] [address] [place] [address] Care Team Providers Care Spanish Medical Interpreter Name Role Phone Servando Torre MD Primary Care Provider [phone] Encounter Details Date Type Department Care Team [...] st Contact Info) Description 08/03/2024 2:00 PM TOP COLLAR BASTER Appointment [facility] [id number] [place] [address] Josué Cook MD [address] [address] documented as of this encounter Goals Goal Patient Goal Type Associated Problems Recent Progress Patient-Stated? Author HOME TO [facility] Vannessa Light RN documented as of this encounter Visit Diagnoses Not on filedocumented in this encounter Additional Health Concerns Assessment Noted Time PHQ-9 Depression Total Score: 0 07/06/20 21 4:06 PM TOP COLLAR BASTER documented as of this encounter Care Teams Spanish Medical Interpreter Relationship Specialty Start Date End Date Servando Torre MD [address] [place] [address] [address] [place] [address] PCP - General FAMILY PRACTICE 07/17/22 documented as of this encounter
--- OUTSIDE RECORDS SUMMARY | 2024-07-15 17:12 | XMS_ITS | Encounter Summary ---
Author Organization [facility] Address [address] [facility] [place] [address] [place] [address] Care Team Providers Care Java Project Manager Name Role Phone Servando Torre MD Primary Care Provider [phone] Reason for Visit * Treatment/Therapy Plan Authorization (Routine) - Authorized Specialty Diagnoses / Procedures Referred By Angel braswell Referred To Contact Diagnoses Chronic ulcerative colitis, unspecified complication ([facility]/HCC HHS/HCC) Abnormal liver function tests Procedures VEDOLIZUMAB, INJECTION [facility] [address] [place] [address] Phone: tel: [facility] [address] [place] [address] Phone: tel: Referral ID Status Reason Start Date Expiration Date Visits Requested Visits Authorized [id number] Authorized Medication 05/01/2023 07/27/2024 99 99 Encounter Details Date Type Department Care Team (Latest Contact Info) Description 05/28/2024 1:43 PM CDT - 05/28/2024 2:55 PM CDT Hospital Encounter [facility] [address] [place] [address] Josué Cook MD [address] [facility] [address] [place] [address] Discharge Disposition: Home or Self Care (Routine [...] st Contact Info) Description 08/03/2024 2:00 PM BEHAVIORAL HEALTH CASE MANAGER Appointment [facility] [address] [place], [place] [id number] Josué Cook MD [address] [address] documented as of this encounter Goals Goal Patient Goal Type Associated Problems Recent Progress Patient-Stated? Author HOME TO [facility] Vannessa Light RN documented as of [...] <0.29 <0.29 mg/dL 05/28/2024 8:37 PM CDT [facility] 05/28/2024 2:00 PM CDT us Anas K Gremida MD LABORATORY Final Result [facility] [address] [place] [address], * (ABNORMAL) CBC W/DIFF AUTOMATED (05/28/2024 2:00 PM CDT) WBC 10.79 4.4 - 11.0 x10'3/uL 05/28/2024 2:34 PM CDT [facility] RBC 4.65 4.50 - 5.10 x10'6/uL 05/28/2024 2:34 PM CDT [facility] HGB 13.6 12.3 - 15.3 G/DL 05/28/2024 2:34 PM CDT [facility] HCT 42.1 35.9 - 44.6 % 05/28/2024 2:34 PM CDT [facility] MCV 90.5 80.0 - 96.0 FL 05/28/2024 2:34 PM CDT [facility] MCH 29.2 25.3 - 30.9 PG 05/28/2024 2:34 PM CDT [facility] MCHC 32.3 31.0 - 34.1 G/DL 05/28/2024 2:34 PM CDT [facility] RDW 13.2 12.4 - 15.1 % 05/28/2024 2:34 PM CDT [facility] PLT 288 151 - 353 x10'3/uL 05/28/2024 2:34 PM CDT [facility] MPV 9.7 9.6 - 12.0 FL 05/28/2024 2:34 PM CDT [facility] RBC MORPHOLOGY NORMAL 05/28/2024 2:34 PM CDT [facility] PLT MORPH. NORMAL 05/28/2024 2:34 PM CDT [facility] WBC MORPHOLOGY NORMAL 05/28/2024 2:34 PM CDT [facility] LYMPHOCYTES % 19.5 15.8 - 45.0 % 05/28/2024 2:34 PM CDT [facility] NEUTROPHILS % 70.3 42.1 - 71.9 % 05/28/2024 2:34 PM CDT [facility] MONOCYTES % 7.3 5.7 - 12.5 % 05/28/2024 2:34 PM CDT [facility] EOSINOPHILS 1.9 0.0 - 5.6 % 05/28/2024 2:34 PM CDT [facility] BASOPHILS 0.6 0.0 - 1.3 % 05/28/2024 2:34 PM CDT [facility] ABS. NEUTROPHILS 7.59(H) 1.40 - 6.00 x10'3/uL 05/28/2024 2:34 PM CDT [facility] IMMATURE GRANS % 0.4 0.0 - 0.5 % 05/28/2024 2:34 PM CDT [facility] ABS. LYMPHOCYTES 2.10 0.80 - 4.70 x10'3/uL 05/28/2024 2:34 PM CDT [facility] 05/28/2024 2:00 PM CDT us Josué Cook MD LABORATORY Final Result [facility] [address] [place] [address], [place] [phone] * (ABNORMAL) COMPREHENSIVE METABOLIC PANEL (05/28/2024 2:00 PM CDT) Pathologist [facility] GLUCOSE 145(H) 70 - 99 MG/DL 05/28/2024 2:53 PM T [facility] BUN 16 7 - 18 MG/DL 05/28/2024 2:53 PM T [facility] CREATININE S/P/B 1.12(H) 0.55 - 1.02 MG/DL 05/28/2024 2:53 PM T [facility] SODIUM S/P/B 139 136 - 145 MMOL/L 05/28/2024 2:53 PM T [facility] POTASSIUM S/P/B 4.0 3.5 - 5.1 MMOL/L 05/28/2024 2:53 PM T [facility] CHLORIDE S/P/B 102 100 - 108 MMOL/L 05/28/2024 2:53 PM T [facility] CO2 28.6 21 - 32 MMOL/L 05/28/2024 2:53 PM T [facility] CALCIUM S/P/B 9.7 8.5 - 10.1 MG/DL 05/28/2024 2:53 PM T [facility] BILIRUBIN TOTAL S/P/B 0.2 0.2 - 1.2 MG/DL 05/28/2024 2:53 PM T [facility] TOTAL PROTEIN S/P/B 6.9 6.4 - 8.2 G/DL 05/28/2024 2:53 PM T [facility] ALBUMIN S/P/B 3.4 3.4 - 5.0 G/DL 05/28/2024 2:53 PM T [facility] AST 19 15 - 37 U/L 05/28/2024 2:53 PM T [facility] ALT 19 14 - 55 U/L 05/28/2024 2:53 PM T [facility] ALKALINE PHOSPHATASE S/P/B 117 50 - 136 U/L 05/28/2024 2:53 PM CDT [facility] ANION GAP 8.4 5 - 15 MMOL/L 05/28/2024 2:53 PM CDT [facility] BUN CREATININE RATIO 14.3 6 - 26 05/28/2024 2:53 PM CDT [facility] A/G RATIO 1.0 1.0 - 2.0 RATIO 05/28/2024 2:53 PM CDT [facility] GFR ESTIMATE 49(L) >90 ML/MIN/1.7 3 M2 05/28/2024 2:53 PM CDT [facility] Comment: NOTE: eGFR is not calculated for patients <18 years of age. This is an estimated GFR calculation using the new CKD EPI creatinine equation without race and so does not require a correction factor for race. This estimated GFR should not be used for calculating drug doses. 05/28/2024 2:00 PM CDT us Josué Cook MD LABORATORY Final Result [facility] [address] [place] [address], [place] [phone] * HEPATITIS B CORE ANTIBODY (05/28/2024 2:00 PM CDT) HEP B CORE TOTAL AB NON-REACTI VE NON-REACTI VE 05/28/2024 9:04 PM CDT [facility] 05/28/2024 2:00 PM CDT us Josué Cook MD LABORATORY Final Result [facility] [address] [place] [address], [place] [phone] * HEPATITIS B SURFACE ANTIBODY (05/28/2024 2:00 PM CDT) HEP B SURFACE AB NON-REACTI VE 05/28/2024 11:01 PM CDT [facility] 05/28/2024 2:00 PM CDT us Josué Cook MD LABORATORY Final Result [facility] [address] [place] [address], [place] [phone] * HEPATITIS B SURFACE AG, EIA (05/28/2024 2:00 PM CDT) HEPATITIS B SURFACE AG NON-REACTI VE NON-REACTI VE 05/28/2024 8:34 PM CDT [facility] 05/28/2024 2:00 PM CDT us Josué Cook MD LABORATORY Final Result Performing Organization Address City/[facility]/ZIP Co de Phone Number [facility] [address] [place] [address], [place] [phone] * QUANTIFERON TBGOLD TUBERCULOSIS TEST (05/28/2024 2:00 PM CDT) TB1 AG MINUS NIL 0.01 IU/ML 05/31/20 24 1:56 PM BEHAVIORAL HEALTH CASE MANAGER [facility] TB2 AG MINUS NIL 0.04 IU/ML 05/31/20 24 1:56 PM BEHAVIORAL HEALTH CASE MANAGER [facility] TB QUANTIFERON NEGATIVE NEGATIVE 05/31/2024 1:56 PM BEHAVIORAL HEALTH CASE MANAGER [facility] TB INTERPRETATION M. tuberculosis infection unlikely but cannot be excluded especially when any illness is consistent with TB disease and/or likelihood of progression to disease is increased. ?? In patients at high risk to M. tuberculosis infection, a second test should be considered. 05/31/2024 1:56 PM BEHAVIORAL HEALTH CASE MANAGER [facility] 05/28/2024 2:00 PM CDT Josué Cook MD LABORATORY Final Result [facility] [address] [place] [address], [phone] documented in this encounter Visit Diagnoses Diagnosis [...] Total Score: 0 07/06/20 21 4:06 PM BEHAVIORAL HEALTH CASE MANAGER documented as of this encounter Care Teams Java Project Manager Relationship Specialty Start Date End Date Servando Torre MD [address] [place] [address] [address] [place] [address] PCP - General FAMILY PRACTICE 07/17/22 documented as of this encounter
--- OUTSIDE RECORDS SUMMARY | 2024-07-15 17:12 | XMS_ITS | Encounter Summary ---
Author Organization [facility] Address [address] [facility] [place] [address] [place] [address] Care Team Providers Care Weapons Mechanic Name Role Phone Servando Torre MD Primary Care Provider [phone] Reason for Visit * Treatment/Therapy Plan Authorization (Routine) - Authorized Specialty Diagnoses / Procedures Referred By Angel braswell Referred To Contact Diagnoses Chronic ulcerative colitis, unspecified complication ([facility]) Abnormal liver function tests Procedures VEDOLIZUMAB, INJECTION [facility] [address] [place] [address] Phone: tel: [facility] [address] [place] [address] Phone: tel: Referral ID Status Reason Start Date Expiration Date Visits Requested Visits Authorized [id number] Authorized Medication 05/01/2023 07/27/2024 99 99 Encounter Details Date Type Department Care Team (Latest Contact Info) Description 12/11/2023 1:51 PM CDT - 12/11/2023 2:58 PM CDT Hospital Encounter [facility] [address] [place] [address] Josué Cook MD [address] [facility] 8 [place] [address] Discharge Disposition: Home or Self Care (Routine [...] st Contact Info) Description 08/03/2024 2:00 PM BAKERY AND DELI SALES MANAGER Appointment [address] [address] Josué Cook MD [address] [facility] 8 [place] [address] documented as of this encounter Goals Goal [...] <0.29 <0.29 mg/dL 12/11/2023 7:[address] [facility] 12/11/2023 1:56 PM CDT Josué Cook MD LABORATORY Final Result [facility] [address] [place] [address], [place] [phone] * (ABNORMAL) CBC W/DIFF AUTOMATED (12/11/2023 1:56 PM CDT) Pathologist [facility] WBC 8.77 4.4 - 11.0 x10'3/uL 12/11/2023 2:32 PM CDT [facility] RBC 4.29(L) 4.50 - 5.10 x10'6/uL 12/11/2023 2:32 PM CDT [facility] HGB 13.2 12.3 - 15.3 G/DL 12/11/2023 2:32 PM CDT [facility] HCT 40.2 35.9 - 44.6 % 12/11/2023 2:32 PM CDT [facility] MCV 93.7 80.0 - 96.0 FL 12/11/2023 2:32 PM CDT [facility] MCH 30.8 25.3 - 30.9 PG 12/11/2023 2:32 PM CDT [facility] MCHC 32.8 31.0 - 34.1 G/DL 12/11/2023 2:32 PM CDT [facility] RDW 13.5 12.4 - 15.1 % 12/11/2023 2:32 PM CDT [facility] PLT 237 151 - 353 x10'3/uL 12/11/2023 2:32 PM CDT [facility] MPV 9.2(L) 9.6 - 12.0 FL 12/11/2023 2:32 PM CDT [facility] RBC MORPHOLOGY NORMAL 12/11/2023 2:32 PM CDT [facility] PLT MORPH. NORMAL 12/11/2023 2:32 PM T [facility] WBC MORPHOLOGY NORMAL 12/11/2023 2:32 PM CDT [facility] LYMPHOCYTES % 22.3 15.8 - 45.0 % 12/11/2023 2:32 PM T [facility] NEUTROPHILS % 63.6 42.1 - 71.9 % 12/11/2023 2:32 PM CDT [facility] MONOCYTES % 9.6 5.7 - 12.5 % 12/11/2023 2:32 PM CDT [facility] EOSINOPHILS 3.2 0.0 - 5.6 % 12/11/2023 2:32 PM CDT [facility] BASOPHILS 0.7 0.0 - 1.3 % 12/11/2023 2:32 PM CDT [facility] ABS. NEUTROPHILS 5.58 1.40 - 6.00 x10'3/uL 12/11/2023 2:32 PM CDT [facility] IMMATURE GRANS % 0.6(H) 0.0 - 0.5 % 12/11/2023 2:32 PM CDT [facility] ABS. LYMPHOCYTES 1.96 0.80 - 4.70 x10'3/uL 12/11/2023 2:32 PM CDT [facility] 12/11/2023 1:56 PM CDT us Josué Cook MD LABORATORY Final Result [facility] [address] [place] [address], * (ABNORMAL) COMPREHENSIVE METABOLIC PANEL (12/11/2023 1:56 PM CDT) GLUCOSE 121(H) 70 - 99 MG/DL 12/11/2023 2:43 PM CDT [facility] BUN 19(H) 7 - 18 MG/DL 12/11/2023 2:43 PM CDT [facility] CREATININE S/P/B 1.36(H) 0.55 - 1.02 MG/DL 12/11/2023 2:43 PM CDT [facility] SODIUM S/P/B 137 136 - 145 MMOL/L 12/11/2023 2:43 PM CDT [facility] POTASSIUM S/P/B 3.8 3.5 - 5.1 MMOL/L 12/11/2023 2:43 PM CDT [facility] CHLORIDE S/P/B 102 100 - 108 MMOL/L 12/11/2023 2:43 PM CDT [facility] CO2 30.9 21 - 32 MMOL/L 12/11/2023 2:43 PM CDT [facility] CALCIUM S/P/B 8.9 8.5 - 10.1 MG/DL 12/11/2023 2:43 PM [facility] BILIRUBIN TOTAL S/P/B 0.2 0.2 - 1.2 MG/DL 12/11/2023 2:43 PM [facility] TOTAL PROTEIN S/P/B 6.2(L) 6.4 - 8.2 G/DL 12/11/2023 2:43 PM [facility] ALBUMIN S/P/B 3.2(L) 3.4 - 5.0 G/DL 12/11/2023 2:43 PM [facility] AST 7(L) 15 - 37 U/L 12/11/2023 2:43 PM [facility] ALT 17 14 - 55 U/L 12/11/2023 2:43 PM [facility] ALKALINE PHOSPHATASE S/P/B 98 50 - 136 U/L 12/11/2023 2:43 PM [facility] ANION GAP 4.1(L) 5 - 15 MMOL/L 12/11/2023 2:43 PM [facility] BUN CREATININE RATIO 14.0 6 - 26 12/11/2023 2:43 PM [facility] A/G RATIO 1.1 1.0 - 2.0 RATIO 12/11/2023 2:43 PM [facility] GFR ESTIMATE 39(L) >90 ML/MIN/1.7 3 M2 12/11/2023 2:43 PM [facility] Comment: [...] CDT Josué Cook MD LABORATORY Final Result [facility] [address] [place] [address], [place] [phone] documented in this encounter Visit Diagnoses Diagnosis [...] Carter RN)[id number] (Infusion Stop Time - Provider: Mayar Carter RN) PRN Medication Order 12/09/2023 12/10/2023 [...] Total Score: 0 07/06/20 21 4:06 PM BAKERY AND DELI SALES MANAGER documented as of this encounter Care Teams Weapons Mechanic Relationship Specialty Start Date End Date Servando Torre MD [address] [facility] [address] [place] [address] PCP - General FAMILY PRACTICE 07/17/22 documented as of this encounter
--- OUTSIDE RECORDS SUMMARY | 2024-07-15 17:13 | XMS_ITS | Encounter Summary ---
Author Organization [facility] Address [address] [facility] [place] [address] [place] [address] Care Team Providers Care Junior Programmer Name Role Phone Servando Torre MD Primary [...] st Contact Info) Description 08/03/2024 2:00 PM LICENSED OCCUPATIONAL THERAPY ASSISTANT Appointment [facility] [id number] [place] [address] Josué Cook MD [address] [address] documented as of this encounter Goals Goal Patient Goal Type Associated Problems Recent Progress Patient-Stated? Author HOME TO [facility] Vannessa Light RN documented as of this encounter Visit Diagnoses Not on filedocumented in this encounter Additional Health Concerns Assessment Noted Time PHQ-9 Depression Total Score: 0 07/06/20 21 4:06 PM LICENSED OCCUPATIONAL THERAPY ASSISTANT documented as of this encounter Care Teams Junior Programmer Relationship Specialty Start Date End Date Servando Torre MD [address] [place] [address] [address] [place] [address] PCP - General FAMILY PRACTICE 07/17/22 documented as of this encounter
--- OUTSIDE RECORDS SUMMARY | 2024-07-15 17:14 | XMS_ITS | Encounter Summary ---
Author Organization [facility] Address [address] [facility] [place] [address] [place] [address] Care Team Providers Care Wrapper Cashier Name Role Phone Servando Torre MD Primary Care Provider [phone] Reason for Visit * Reason Onset Date Comments Orders 04/14/2023 Need updated ord ers for Entyvio infusion Encounter Details Date Type Department Care Team (Late st Contact Info) Description 04/14/2023 Telephone [facility] [address] [place] [id number] Mariela Denton MD [address] [place] [address] Orders (Need updated orders for Entyvio infusion [...] insurance auth for the new order to [facility]. Just FYI, pt did have a seizure over the summer and is now on Keppra. Order can be faxed to us at [phone]. Or please feel free to call w/ any questions at [phone]. documented in this encounter Plan of Treatment Upcoming Encounters Date Type Department Care Team (Late st Contact Info) Description 08/03/2024 2:00 PM STATISTICAL DEVELOPER Appointment [facility] Day [facility] [address] [place] [address] Josué Cook MD [address] [facility] 8 [place] [address] documented as of this encounter Goals Goal Patient Goal Type Associated Problems Recent Progress Patient-Stated? Author HOME TO [facility] Vannessa Light RN documented as of this encounter Visit Diagnoses Not on filedocumented in this encounter Additional Health Concerns Assessment Noted Time PHQ-9 Depression Total Score: 0 07/06/20 4:06 PM STATISTICAL DEVELOPER documented as of this encounter Care Teams Wrapper Cashier Relationship Specialty Start Date End Date Servando Torre MD [address] [place] [address] [address] [place] [address] PCP - General FAMILY PRACTICE 07/17/22 documented as of this encounter
--- OUTSIDE RECORDS SUMMARY | 2024-07-15 17:14 | XMS_ITS | Encounter Summary ---
Author Organization [facility] Address [address] [facility] [place] [address] [place] [address] Care Team Providers Care Qualified Craft Worker Electrician Name Role Phone Servando Torre MD Primary Care Provider [phone] Reason for Visit * Treatment/Therapy Plan Authorization (Routine) - Closed Specialty Diagnoses / Procedures Referred By Angel braswell Referred To Contact Diagnoses Chronic ulcerative colitis, unspecified complication ([facility]/HCC [facility]) Procedures VEDOLIZUMAB, INJECTION [facility] [address] [place] [address] Phone: tel: [facility] [address] [place] [address] Phone: tel: Referral ID Status Reason Start Date Expiration Date Visits Re quested Visits Authorized [id number] Closed 06/18/2022 3 3 Encounter Details Date Type Department Care Team (Latest Contact Info) Description 04/14/2023 1:29 PM CDT - 04/14/2023 3:00 PM CDT Hospital Encounter [facility] [address] [place] [address] Non-Staff, Provider Mariela Denton MD [address] [place] [address] Josué Cook MD [address] [facility] 8 [facility] [place] [address] Discharge Disposition: Home or Self Care (Routine [...] st Contact Info) Description 08/03/2024 2:00 PM MACHINE OPERATOR GENERAL Appointment [facility] [address] [id number] Josué Cook MD [address] [address] documented as of this encounter Goals Goal Patient Goal Type Associated Problems Recent Progress Patient-Stated? Author HOME TO [facility] No Vannessa Blackwell RN documented as of this encounter Visit Diagnoses Diagnosis Chronic ulcerative colitis, unspecified complication ([facility]HS/HCC)- Primary documented in this encounter Administered [...] in 24 hours.Indications:Chronic ulcerative colitis, unspecified complication ([facility]/HCC HHS/HCC) acetaminophen (TYLENOL) tablet 650 mg 650 mg, Oral, Once as needed, Mild pain (Scale 1 - 3), 1 dose, Starting on Fri04/14/23 at 1330, Until Fri04/14/23 at 1727, Maximum dose of acetaminophen is 4000 mg from all sources in 24 hours.Indications:Chronic ulcerative colitis, unspecified complication ([facility] HHS/HCC) diphenhydrAMINE (BENADRYL) capsule 25 mg 25 mg, Oral, Once as needed, premedicate 30 mins prior to infusion, 1 dose, Starting on Fri04/14/23 at 1330, Until Fri04/14/23 at 1727Indications:Chronic ulcerative colitis, unspecified complication ([facility] HHS/HCC) diphenhydrAMINE (BENADRYL) injection 25 mg 25 mg, Intravenous, Once as needed, Severe hypersensitivity reaction (dyspnea, bronchospasm, urticaria, flushing, rash, and increased heart rate), Starting on Fri04/14/23 at 1330, Until Fri04/14/23 at 1727, For IV administration, give no faster than 25 mg/min. For severe hypersensitivity reaction (dyspnea, bronchospasm, urticaria, flushing, rash, and increased heart rate).Indications:Chronic ulcerative colitis, unspecified complication ([facility] HHS/HCC) EPINEPHrine PF (ADRENALIN) 1 mg/mL injection 0.3 mg 0.3 mg, Intramuscular, Every 5 min PRN, Other, Severe hypersensitivity reaction (dyspnea, bronchospasm, urticaria, flushing, rash, and increased heart rate), 3 doses, Starting on Fri04/14/23 at 1330, Until Fri04/14/23 at 1727, Severe hypersensitivity reaction (dyspnea, bronchospasm, urticaria, flushing, rash, and increased heart rate)Indications:Chronic ulcerative colitis, unspecified complication ([facility]) vedolizumab (ENTYVIO) 300 mg in sodium chloride [...] NS after completion.Indications:Chronic ulcerative colitis, unspecified complication ([facility]) New Bag 04/14/2023 2:08 PM CDT 300 [...] Depression Total Score: 0 07/06/20 4:06 PM MACHINE OPERATOR GENERAL documented as of this encounter Care Teams Qualified Craft Worker Electrician Relationship Specialty Start Date End Date Servando Torre MD [address] [place] [address] [address] [place] [address] PCP - General FAMILY PRACTICE 07/17/22 documented as of this encounter
--- OUTSIDE RECORDS SUMMARY | 2024-07-15 17:14 | XMS_ITS | Encounter Summary ---
Author Organization [facility] Address [address] [facility] [place] [address] [place] [address] Care Team Providers Care Joss House Keeper Name Role Phone Servando Torre MD Primary Care Provider Encounter Details Date Type Department Care Team (Late st Contact Info) Description 05/04/2023 Orders Only [facility] [address] [place] [address] Derick Martínez MD [address] [facility] [address] [place] [address] Social History Tobacco Use Types Packs/Day Years [...] st Contact Info) Description 08/03/2024 2:00 PM OSTOMY RN Appointment [address] [address] Josué Cook MD [address] [address] documented as of this encounter Goals Goal Patient Goal Type Associated Problems Recent Progress Patient-Stated? Author HOME TO [facility] No Vannessa Blackwell RN documented as of this encounter Visit Diagnoses Not on filedocumented in this encounter Additional Health Concerns Assessment Noted Time PHQ-9 Depression Total Score: 0 07/06/20 4:06 PM OSTOMY RN documented as of this encounter Care Teams Joss House Keeper Relationship Specialty Start Date End Date Servando Torre MD [address] [place] [address] [address] [place] [address] PCP - General FAMILY PRACTICE 07/17/22 documented as of this encounter
--- OUTSIDE RECORDS SUMMARY | 2024-07-15 17:14 | XMS_ITS | Encounter Summary ---
Author Organization [facility] Address [address] [facility] [place] [address] [place] [address] Care Team Providers Care Electrocardiographic Technician Name Role Phone Servando Torre MD Primary Care Provider [phone] Encounter Details Date Type Department Care Team (Late st Contact Info) Description 05/01/2023 Therapy Plan [facility] [address] [place] [address] Josué Cook MD [address] [place] [address] Social History Tobacco Use Types Packs/Day Years [...] Status No 03/23/2020 1:13 PM CDT Hannah Reagna RN Active documented in this encounter Plan of Treatment Upcoming Encounters Date Type Department Care Team (Late st Contact Info) Description 08/03/2024 2:00 PM RELIGION INSTRUCTOR Appointment [address] [phone] Josué Cook MD [address] [address] documented as of this encounter Goals Goal Patient Goal Type Associated Problems Recent Progress Patient-Stated? Author HOME TO [facility] No Vannessa Blackwell RN documented as of this encounter Visit Diagnoses Diagnosis Chronic ulcerative colitis, unspecified complication ([facility]/HCC [facility]/HCC)- Primary Abnormal liver function tests Other abnormal blood chemistry documented in this encounter Additional Health Concerns Assessment Noted Time PHQ-9 Depression Total Score: 0 07/06/20 21 4:06 PM RELIGION INSTRUCTOR documented as of this encounter Care Teams Electrocardiographic Technician Relationship Specialty Start Date End Date Servando Torre MD [address] [place] [address] [address] [place] [address] PCP - General FAMILY PRACTICE 07/17/22 documented as of this encounter
--- OUTSIDE RECORDS SUMMARY | 2024-07-15 17:14 | XMS_ITS | Encounter Summary ---
Author Organization [facility] Address [address] [place] [address] [place] [address] Care Team Providers Care Stockroom Coordinator Name Role Phone Servando Torre MD Primary Care Provider [phone] Encounter Details Date Type Department Care Team [...] st Contact Info) Description 08/03/2024 2:00 PM SPARE PERSON Appointment [facility] [id number] [place] [address] Josué Cook MD [address] [address] documented as of this encounter Goals Goal Patient Goal Type Associated Problems Recent Progress Patient-Stated? Author HOME TO [facility] Vannessa Light RN documented as of this encounter Visit Diagnoses Not on filedocumented in this encounter Additional Health Concerns Assessment Noted Time PHQ-9 Depression Total Score: 0 07/06/20 21 4:06 PM SPARE PERSON documented as of this encounter Care Teams Stockroom Coordinator Relationship Specialty Start Date End Date Servando Torre MD [address] [place] [address] [address] [place] [address] PCP - General FAMILY PRACTICE 07/17/22 documented as of this encounter
--- OUTSIDE RECORDS SUMMARY | 2024-07-15 17:14 | XMS_ITS | Encounter Summary ---
Author Organization [facility] Address [address] [facility] [place] [address] [place] [address] Care Team Providers Care Tail Board Man Name Role Phone Servando Torre MD Primary [...] st Contact Info) Description 08/03/2024 2:00 PM ENTRY DRIVER OPERATOR Appointment [facility] [id number] [place] [address] Josué Cook MD [address] [address] documented as of this encounter Goals Goal Patient Goal Type Associated Problems Recent Progress Patient-Stated? Author HOME TO [facility] Vannessa Light RN documented as of this encounter Visit Diagnoses Not on filedocumented in this encounter Additional Health Concerns Assessment Noted Time PHQ-9 Depression Total Score: 0 07/06/20 21 4:06 PM ENTRY DRIVER OPERATOR documented as of this encounter Care Teams Tail Board Man Relationship Specialty Start Date End Date Servando Torre MD [address] [place] [address] [address] [place] [address] PCP - General FAMILY PRACTICE 07/17/22 documented as of this encounter
--- OUTSIDE RECORDS SUMMARY | 2024-07-15 17:14 | XMS_ITS | Encounter Summary ---
Author Organization [facility] Address [address] [place] [address] [place] [address] Care Team Providers Care Licensed Massage Practitioner Name Role Phone Servando Torre MD Primary Care Provider [phone] Reason for Visit * Treatment/Therapy Plan Authorization (Routine) - Authorized Specialty Diagnoses / Procedures Referred By Angel braswell Referred To Contact Diagnoses Chronic ulcerative colitis, unspecified complication ([facility]/HCC HHS/HCC) Abnormal liver function tests Procedures VEDOLIZUMAB, INJECTION [facility] [address] [place] [address] Phone: tel: [facility] [address] [place] [address] Phone: tel: Referral ID Status Reason Start Date Expiration Date Visits Requested Visits Authorized [id number] Authorized Medication 05/01/2023 07/27/2024 99 99 Encounter Details Date Type Department Care Team (Latest Contact Info) Description 06/10/2023 1:35 PM CATTLE BROKER - 06/10/2023 2:55 PM CATTLE BROKER Hospital Encounter [facility] [address] [place] [address] Josué Cook MD [address] [facility] [address] [place] [address] Discharge Disposition: Home or Self Care (Routine [...] Comments Blood Pressure 162/78 06/10/2023 1:45 PM CATTLE BROKER Pulse - - Temperature - - Respiratory Rate - - Oxygen Saturation 96% 06/10/2023 2:12 PM CATTLE BROKER Inhaled Oxygen Concentration - - Weight - [...] , monitored for 30 mins post infusion LE BROKER documented in this encounter Plan of Treatment Upcoming Encounters Date Type Department Care Team (Late st Contact Info) Description 08/03/2024 2:00 PM CATTLE BROKER Appointment [facility] [id number] [place] [address] [phone] Josué Cook MD [address] [address] documented as of this encounter Goals Goal Patient Goal Type Associated Problems Recent Progress Patient-Stated? Author HOME TO [facility] Vannessa Light RN documented as of this encounter Procedures Procedure Name Priority Date/Time Associated Diagnosis Comments HEPATITIS E ANTIBODY IGG Routine 06/10/2023 2:30 PM CATTLE BROKER Abnormal liver function tests Chronic ulcerative colitis, unspecified complication (CMS/HCC HHS/HCC) HEPATITIS B POST-VACCINE ANTIBODY Routine 06/10/2023 2:30 PM CATTLE BROKER Abnormal liver function tests Chronic ulcerative colitis, unspecified complication (CMS/HCC HHS/HCC) TBGOLD-TUBERCULOSIS TST CELL MEDIATED IMMUNITY Routine 06/10/2023 2:30 PM CATTLE BROKER Abnormal liver function tests Chronic ulcerative colitis, unspecified complication (CMS/HCC HHS/HCC) PROMETHEUS THIOPURINE METABOLITES Routine 06/10/2023 2:30 PM CATTLE BROKER Abnormal liver function tests Chronic ulcerative colitis, unspecified complication (CMS/HCC HHS/HCC) COMPREHENSIVE METABOLIC PANEL Routine 06/10/2023 2:30 PM CATTLE BROKER Abnormal liver function tests Chronic ulcerative colitis, unspecified complication (CMS/HCC HHS/HCC) HEPATITIS B SURFACE AG, EIA Routine 06/10/2023 2:30 PM CATTLE BROKER Abnormal liver function tests Chronic ulcerative colitis, unspecified complication (CMS/HCC HHS/HCC) HEPATITIS B CORE AB IGM Routine 06/10/2023 2:30 PM CATTLE BROKER Abnormal liver function tests Chronic ulcerative colitis, unspecified complication (CMS/HCC HHS/HCC) C-REACTIVE PROTEIN Routine 06/10/2023 2: 30 PM CATTLE BROKER Abnormal liver function tests Chronic ulcerative colitis, unspecified complication (CMS/HCC HHS/HCC) CBC W/DIFF AUTOMATED Routine 06/10/2023 2:30 PM CATTLE BROKER Abnormal liver function tests Chronic ulcerative colitis, unspecified complication (CMS/HCC HHS/HCC) documented in this encounter Results * C-REACTIVE PROTEIN (06/10/2023 2:30 PM CATTLE BROKER) C-REACTIVE PROTEIN <0.29 <0.29 mg/dL 06/10/2023 7:41 PM CATTLE BROKER [facility] 06/10/2023 2:30 PM CATTLE BROKER Josué Cook MD LABORATORY Final Result [facility] [address] [place] [address], * (ABNORMAL) CBC W/DIFF AUTOMATED (06/10/2023 2:30 PM CATTLE BROKER) WBC 6.74 4.4 - 11.0 x10'3/uL 06/10/2023 3:16 PM [facility] RBC 4.08(L) 4.50 - 5.10 x10'6/uL 06/10/2023 3:16 PM [facility] HGB 13.0 12.3 - 15.3 G/DL 06/10/2023 3:16 PM [facility] HCT 39.3 35.9 - 44.6 % 06/10/2023 3:16 PM [facility] MCV 96.3(H) 80.0 - 96.0 FL 06/10/2023 3:16 PM [facility] MCH 31.9(H) 25.3 - 30.9 PG 06/10/2023 3:16 PM CATTLE BROKER [facility] MCHC 33.1 31.0 - 34.1 G/DL 06/10/2023 3:16 PM [facility] RDW 14.3 12.4 - 15.1 % 06/10/2023 3:16 PM [facility] PLT 255 151 - 353 x10'3/uL 06/10/2023 3:16 PM [facility] MPV 9.2(L) 9.6 - 12.0 FL 06/10/2023 3:16 PM [facility] RBC MORPHOLOGY NORMAL 06/10/2023 3:16 PM [facility] PLT MORPH. NORMAL 06/10/2023 3:16 PM [facility] WBC MORPHOLOGY NORMAL 06/10/2023 3:16 PM CATTLE BROKER [facility] LYMPHOCYTES % 28.2 15.8 - 45.0 % 06/10/2023 3:16 PM [facility] NEUTROPHILS % 58.5 42.1 - 71.9 % 06/10/2023 3:16 PM [facility] MONOCYTES % 9.3 5.7 - 12.5 % 06/10/2023 3:16 PM [facility] EOSINOPHILS 3.0 0.0 - 5.6 % 06/10/2023 3:16 PM [facility] BASOPHILS 0.6 0.0 - 1.3 % 06/10/2023 3:16 PM [facility] ABS. NEUTROPHILS 3.94 1.40 - 6.00 x10'3/uL 06/10/2023 3:16 PM [facility] IMMATURE GRANS % 0.4 0.0 - 0.5 % 06/10/2023 3:16 PM [facility] ABS. LYMPHOCYTES 1.90 0.80 - 4.70 x10'3/uL 06/10/2023 3:16 PM [facility] 06/10/2023 2:30 PM CATTLE BROKER us Josué Cook MD LABORATORY Final Result [facility] [address] [place] [address], [place] [phone] * (ABNORMAL) COMPREHENSIVE METABOLIC PANEL (06/10/2023 2:30 PM CATTLE BROKER) [facility] GLUCOSE 101(H) 70 - 99 MG/DL 06/10/2023 3:15 PM [facility] BUN 14 7 - 18 MG/DL 06/10/2023 3:15 PM [facility] CREATININE S/P/B 0.92 0.55 - 1.02 MG/DL 06/10/2023 3:15 PM [facility] SODIUM S/P/B 141 136 - 145 MMOL/L 06/10/2023 3:15 PM [facility] POTASSIUM S/P/B 4.2 3.5 - 5.1 MMOL/L 06/10/2023 3:15 PM [facility] CHLORIDE S/P/B 104 100 - 108 MMOL/L 06/10/2023 3:15 PM [facility] CO2 32.4(H) 21 - 32 MMOL/L 06/10/2023 3:15 PM [facility] CALCIUM S/P/B 9.7 8.5 - 10.1 MG/DL 06/10/2023 3:15 PM [facility] BILIRUBIN TOTAL S/P/B 0.7 0.2 - 1.2 MG/DL 06/10/2023 3:15 PM [facility] TOTAL PROTEIN S/P/B 6.7 6.4 - 8.2 G/DL 06/10/2023 3:15 PM [facility] ALBUMIN S/P/B 3.4 3.4 - 5.0 G/DL 06/10/2023 3:15 PM [facility] AST 22 15 - 37 U/L 06/10/2023 3:15 PM [facility] ALT 28 14 - 55 U/L 06/10/2023 3:15 PM CATTLE BROKER [facility] ALKALINE PHOSPHATASE S/P/B 63 50 - 136 U/L 06/10/2023 3:15 PM CATTLE BROKER [facility] ANION GAP 4.6(L) 5 - 15 MMOL/L 06/10/2023 3:15 PM CATTLE BROKER [facility] BUN CREATININE RATIO 15.2 6 - 26 06/10/2023 3:15 PM CATTLE BROKER [facility] A/G RATIO 1.0 1.0 - 2.0 RATIO 06/10/2023 3:15 PM CATTLE BROKER [facility] GFR ESTIMATE 63(L) >90 ML/MIN/1.7 3 M2 06/10/2023 3:15 PM CATTLE BROKER [facility] Comment: NOTE: eGFR is not calculated for patients <18 years of age. This is an estimated GFR calculation using the new CKD EPI creatinine equation without race and so does not require a correction factor for race. This estimated GFR should not be used for calculating drug doses. 06/10/2023 2:30 PM CATTLE BROKER Josué Cook MD LABORATORY Final Result [facility] [address] [place] [address], * HEPATITIS E ANTIBODY IGG (06/10/2023 2:30 PM CATTLE BROKER) HEPATITIS E IGG NOT DETECTED 023 8:39 PM CATTLE BROKER [facility] Comment: REFERENCE RANGE: NOT DETECTED [...] analytical performance characteristics have been determined by [employer]. It has not been cleared or approved by FDA. This assay has been validated pursuant to the CLIA regulations and is used for clinical purposes. Test performed by [employer] ? [address], ? [place] [address] ? Ocean Forwarder: Lillian Duong MD,PHD,JOVANY Test Reported by [facility], [employer] [facility], [address] [place], [place] Gamal Gao M.D., Ph.D., Director of Laboratories , [facility] [id number] 06/10/2023 2:30 PM CATTLE BROKER Josué Cook MD LABORATORY Final Result Performing Organization Address City/[facility]/ZIP Co de Phone Number [facility] [place] [id number] [place], [place] , [place] [phone] * HEPATITIS B CORE AB IGM (06/10/2023 2:30 PM CATTLE BROKER) Pathologist [facility] HEP B CORE IGM NON-REACTI VE NON-REACTI VE 06/10/2023 8:39 PM CATTLE BROKER [facility] 06/10/2023 2:30 PM CATTLE BROKER Josué Cook MD LABORATORY Final Result [facility] [address] [place] [address], [place] [phone] * HEPATITIS B SURFACE AG, EIA (06/10/2023 2:30 PM CATTLE BROKER) HEPATITIS B SURFACE AG NON-REACTI VE NON-REACTI VE 06/10/2023 8:07 PM CATTLE BROKER [facility] 06/10/2023 2:30 PM CATTLE BROKER us Josué Cook MD LABORATORY Final Result Performing Organization Address [facility] Co de Phone Number [facility] [address] [place] [address], [place] [phone] * TBGOLD-TUBERCULOSIS TST CELL MEDIATED IMMUNITY (06/10/2023 2:30 PM CATTLE BROKER) TB1 AG MINUS NIL 0.06 IU/ML 06/11/20 1:11 PM CATTLE BROKER [facility] TB2 AG MINUS NIL 0.08 IU/ML 06/11/20 1:11 PM CATTLE BROKER [facility] TB QUANTIFERON NEGATIVE NEGATIVE 06/11/2023 1:11 PM CATTLE BROKER [facility] TB INTERPRETATION M. tuberculosis infection unlikely but cannot be excluded especially when any illness is consistent with TB disease and/or likelihood of progression to disease is increased. ?? In patients at high risk to M. tuberculosis infection, a second test should be considered. 06/11/2023 1:11 PM CATTLE BROKER [facility] 06/10/2023 2:30 PM CATTLE BROKER us Josué Cook MD LABORATORY Final Result Performing Organization Address City/[facility]/ZIP Co de Phone Number [facility] [address] [place] [address], [place] [phone] * HEPATITIS B POST-VACCINE ANTIBODY (06/10/2023 2:30 PM CATTLE BROKER) HEP B SURFACE AB <3.10 mIU/mL 06/10/2023 8:52 PM CATTLE BROKER [facility] Comment: REFERENCE RANGE >=12.00 PATIENT DOES NOT HAVE IMMUNITY TO HEPATITIS B VIRUS 06/10/2023 2:30 PM CATTLE BROKER Josué Coko MD LABORATORY Final Result [facility] [address] [place] [address], [place] [phone] * (ABNORMAL) PROMETHEUS THIOPURINE METABOLITES (06/10/2023 2:30 PM CATTLE BROKER) 6-TG 452(H) 235 - 400 06/14/2023 3:36 PM CATTLE BROKER [facility] Comment: Units: ??pmol/8x10(8)RBC This test was developed and its analytical performance characteristics have been determined by [employer]. It has not been cleared or approved by the FDA. This assay has been validated pursuant to the CLIA regulations and is used for clinical purposes. 6-MMP 8,511(H) <5,700 06/14/2023 3:36 PM CATTLE BROKER [facility] Comment: Units: ??pmol/8x10(8)RBC These results [...] analytical performance characteristics have been determined by [employer]. It has not been cleared or approved by the FDA. This assay has been validated pursuant to the CLIA regulations and is used for clinical purposes. Test performed by [employer] ? [address] [facility], ? [place] [address] ? Ocean Forwarder: NICOLA JOHNSON M.D. Test Reported by [facility], [employer] [facility], [address] [place], [place] Gamal Gao M.D., Ph.D., Director of Laboratories , [place] [id number] 06/10/2023 2:30 PM CATTLE BROKER Josué Cook MD LABORATORY Final Result [facility] [address] [place], [place] , [place] [phone] documented in this encounter Visit Diagnoses Diagnosis [...] complication (CMS/HCC HHS/HCC) Given 06/10/2023 2:12 PM CATTLE BROKER 650 mg diphenhydrAMINE (BENADRYL) capsule 25 mg 25 mg, Oral, Once as needed, Other, premed, 1 dose, Starting on Fri06/10/23 at 1337, Until Fri06/10/23 at 1413Indications:Abnormal liver function tests,Chronic ulcerative colitis, unspecified complication (CMS/HCC HHS/HCC) Given 06/10/2023 2:13 PM CATTLE BROKER 25 mg diphenhydrAMINE (BENADRYL) injection 25 mg 25 mg, Intravenous, Once as needed, Severe hypersensitivity reaction (dyspnea, bronchospasm, urticaria, flushing, rash, and increased heart rate), Starting on Fri06/10/23 at 1337, Until Fri06/10/23 at 1803, For IV administration, give no faster than 25 mg/min. For severe hypersensitivity reaction (dyspnea, bronchospasm, urticaria, flushing, rash, and increased heart rate).Indications:Abnormal liver function tests,Chronic ulcerative colitis, unspecified complication ([facility] HHS/HCC) EPINEPHrine PF (ADRENALIN) 1 mg/mL injection 0.3 mg 0.3 mg, Intramuscular, Every 5 min PRN, Other, Severe hypersensitivity reaction (dyspnea, bronchospasm, urticaria, flushing, rash, and increased heart rate), 3 doses, Starting on Fri06/10/23 at 1337, Until Fri06/10/23 at 1803, Severe hypersensitivity reaction (dyspnea, bronchospasm, urticaria, flushing, rash, and increased heart rate)Indications:Abnormal liver function tests,Chronic ulcerative colitis, unspecified complication ([facility] HHS/HCC) hydrocortisone sodium succinate (Solu-CORTEF) injection 100 mg 100 mg, Intravenous, Once as needed, Severe hypersensitivity reaction (dyspnea, bronchospasm, urticaria, flushing, rash, and increased heart rate), Starting on Fri06/10/23 at 1337, Until Fri06/10/23 at 1803, Administer over 1-2 minutes. For severe hypersensitivity reaction (dyspnea, bronchospasm, urticaria, flushing, rash, and increased heart rate).Indications:Abnormal liver function tests,Chronic ulcerative colitis, unspecified complication ([facility]/HCC HHS/HCC) vedolizumab (ENTYVIO) 300 mg in sodium [...] liver function tests,Chronic ulcerative colitis, unspecified complication ([facility] HHS/HCC) New Bag 06/10/2023 2:45 PM CATTLE BROKER 300 mg 500 mL/hr documented in this encounter Active and Recently Administered Medications Times are shown in CATTLE BROKER. Scheduled Medication Order 06/08/2023 06/09/2023 06/10/2023 vedolizumab [...] Depression Total Score: 0 07/06/20 4:06 PM CATTLE BROKER documented as of this encounter Care Teams Licensed Massage Practitioner Relationship Specialty Start Date End Date Servando Torre MD [address] [place] [address] [address] [place] [address] PCP - General FAMILY PRACTICE 07/17/22 documented as of this encounter
--- OUTSIDE RECORDS SUMMARY | 2024-07-15 17:14 | XMS_ITS | Encounter Summary ---
Author Organization [facility] Address [address] [place] [address] [place] [address] Care Team Providers Care Pig Handler Name Role Phone Servando Torre MD Primary Care Provider + [phone] Reason for Visit * Treatment/Therapy Plan Authorization (Routine) - Closed Specialty Diagnoses / Procedures Referred By Angel braswell Referred To Contact Diagnoses Chronic ulcerative colitis, unspecified complication ([facility]/HCC [facility]) Procedures VEDOLIZUMAB, INJECTION [facility] [address] [place] [address] Phone: tel: [facility] [address] [place] [address] Phone: tel: Referral ID Status Reason Start Date Expiration Date Visits Re quested Visits Authorized [id number] Closed 06/18/2022 3 3 Encounter Details Date Type Department Care Team (Latest Contact Info) Description 02/12/2023 2:27 PM CDT - 02/12/2023 3:54 PM CDT Hospital Encounter [facility] [address] [place] [address] Mariela Denton MD [address] [place] [address] Discharge Disposition: Home or Self Care (Routine [...] as of this encounter Progress Notes * eVe Bernstein RN - 02/12/2023 3:53 PM CDT Tolerated infusion well. Ready for discharge documented in this encounter Plan of Treatment Upcoming Encounters Date Type Department Care Team (Late st Contact Info) Description 08/03/2024 2:00 PM FIOS LINE INSTALLER Appointment [facility] [address] [address] Josué Cook MD [address] [facility] [address] [place] [address] documented as of this encounter Goals Goal Patient Goal Type Associated Problems Recent Progress Patient-Stated? Author HOME TO [facility] Vannessa Light RN documented as of this encounter Visit Diagnoses Diagnosis Chronic ulcerative colitis, unspecified complication ([facility]/HCC HHS/HCC)- Primary documented in this encounter Administered [...] increased heart rate)Indications:Chronic ulcerative colitis, unspecified complication ([facility]) vedolizumab (ENTYVIO) 300 mg in sodium chloride [...] NS after completion.Indications:Chronic ulcerative colitis, unspecified complication ([facility]) New Bag 02/12/2023 3:08 PM CDT 300 [...] Depression Total Score: 0 07/06/20 4:06 PM FIOS LINE INSTALLER documented as of this encounter Care Teams Pig Handler Relationship Specialty Start Date End Date Servando Torre MD [address] [place] [address] [address] [place] [address] PCP - General FAMILY PRACTICE 07/17/22 documented as of this encounter
--- OUTSIDE RECORDS SUMMARY | 2024-07-15 17:15 | XMS_ITS | Encounter Summary ---
Author Organization [facility] Address [address] [facility] [place] [address] [place] [address] Care Team Providers Care Safety Representative Name Role Phone Servando Torre MD Primary Care Provider + [phone] Reason for Visit * Treatment/Therapy Plan Authorization (Routine) - Closed Specialty Diagnoses / Procedures Referred By Angel braswell Referred To Contact Diagnoses Chronic ulcerative colitis, unspecified complication ([facility]/HCC [facility]) Procedures VEDOLIZUMAB, INJECTION [facility] [address] [place] [address] Phone: tel: [facility] [address] [place] [address] Phone: tel: Referral ID Status Reason Start Date Expiration Date Visits Re quested Visits Authorized [id number] Closed 06/18/2022 3 3 Encounter Details Date Type Department Care Team (Latest Contact Info) Description 12/18/2022 3:40 PM CDT - 12/18/2022 3:41 PM CDT Hospital Encounter [facility] [address] [place] [address] Mariela Denton MD [address] [place] [address] Discharge Disposition: Home or Self Care (Routine [...] st Contact Info) Description 08/03/2024 2:00 PM CHIMNEY BUILDER HELPER Appointment [facility] [address] [place], [place] [id number] Josué Cook MD [address] [place] [address] documented as of this encounter Goals Goal Patient Goal Type Associated Problems Recent Progress Patient-Stated? Author HOME TO [facility] No Vannessa Blackwell RN documented as [...] - 8.2 G/DL 12/18/2022 5:22 PM T [facility] ALBUMIN S/P/B 3.5 3.4 - 5.0 G/DL 12/18/2022 5:22 PM [facility] BILIRUBIN TOTAL S/P/B 0.2 0.2 - 1.2 MG/DL 12/18/2022 5:22 PM [facility] BILIRUBIN DIRECT S/P/B <0.1 0.0 - 0.20 MG/DL 12/18/2022 5:22 PM [facility] BILIRUBIN INDIRECT S/P/B 0.2 0.0 - 0.9 MG/DL 12/18/2022 5:22 PM [facility] ALKALINE PHOSPHATASE S/P/B 79 50 - 136 U/L 12/18/2022 5:22 PM [facility] AST 21 15 - 37 U/L 12/18/2022 5:22 PM [facility] ALT 22 14 - 55 U/L 12/18/2022 5:22 PM [facility] A/G RATIO 1.0 1.0 - 2.0 RATIO 12/18/2022 5:22 PM [facility] 12/18/2022 2:12 PM CDT us Mariela Denton MD LABORATORY Final Res ult [facility] [address] [place] [address], [place] [phone] * (ABNORMAL) CBC W/DIFF AUTOMATED (12/18/2022 2:12 PM CDT) Pathologist [facility] WBC 9.27 4.4 - 11.0 x10'3/uL 12/18/2022 5:09 PM CDT [facility] RBC 4.34(L) 4.50 - 5.10 x10'6/uL 12/18/2022 5:09 PM CDT [facility] HGB 12.7 12.3 - 15.3 G/DL 12/18/2022 5:09 PM CDT [facility] HCT 39.4 35.9 - 44.6 % 12/18/2022 5:09 PM CDT [facility] MCV 90.8 80.0 - 96.0 FL 12/18/2022 5:09 PM CDT [facility] MCH 29.3 25.3 - 30.9 PG 12/18/2022 5:09 PM CDT [facility] MCHC 32.2 31.0 - 34.1 G/DL 12/18/2022 5:09 PM CDT [facility] RDW 15.0 12.4 - 15.1 % 12/18/2022 5:09 PM CDT [facility] PLT 249 151 - 353 x10'3/uL 12/18/2022 5:09 PM CDT [facility] MPV 9.6 9.6 - 12.0 FL 12/18/2022 5:09 PM CDT [facility] RBC MORPHOLOGY NORMAL 12/18/2022 5:09 PM CDT [facility] PLT MORPH. NORMAL 12/18/2022 5:09 PM CDT [facility] WBC MORPHOLOGY NORMAL 12/18/2022 5:09 PM CDT [facility] LYMPHOCYTES % 26.5 15.8 - 45.0 % 12/18/2022 5:09 PM CDT [facility] NEUTROPHILS % 62.4 42.1 - 71.9 % 12/18/2022 5:09 PM CDT [facility] MONOCYTES % 7.8 5.7 - 12.5 % 12/18/2022 5:09 PM CDT [facility] EOSINOPHILS 2.3 0.0 - 5.6 % 12/18/2022 5:09 PM CDT [facility] BASOPHILS 0.5 0.0 - 1.3 % 12/18/2022 5:09 PM CDT [facility] ABS. NEUTROPHILS 5.78 1.40 - 6.00 x10'3/uL 12/18/2022 5:09 PM CDT [facility] IMMATURE GRANS % 0.5 0.0 - 0.5 % 12/18/2022 5:09 PM CDT [facility] ABS. LYMPHOCYTES 2.46 0.80 - 4.70 x10'3/uL 12/18/2022 5:09 PM T [facility] 12/18/2022 2:12 PM CDT us Mariela Denton MD LABORATORY Final Res ult [facility] [address] [place] [address], [place] [phone] documented in this encounter Visit Diagnoses Diagnosis [...] Fri12/18/22 at 1404Indications:Chronic ulcerative colitis, unspecified complication ([facility] HHS/HCC) Given 12/18/2022 2:04 PM CDT 25 [...] NS after completion.Indications:Chronic ulcerative colitis, unspecified complication ([facility] HHS/HCC) New Bag 12/18/2022 2:33 PM CDT [...] Total Score: 0 07/06/20 21 4:06 PM CHIMNEY BUILDER HELPER documented as of this encounter Care Teams Safety Representative Relationship Specialty Start Date End Date Servando Torre MD [address] [place] [address] [address] [place] [address] PCP - General FAMILY PRACTICE 07/17/22 documented as of this encounter
--- OUTSIDE RECORDS SUMMARY | 2024-07-15 17:15 | XMS_ITS | Encounter Summary ---
Author Organization [facility] Address [address] [facility] [place] [address] [place] [address] Care Team Providers Care Slope Runner Name Role Phone Servando Torre MD Primary [...] Coronavirus/COVID-19? No / Unsure 07/31/2022 1:38 PM DATABASE MANAGEMENT SPECIALIST documented as of this encounter Functional Status [...] st Contact Info) Description 08/03/2024 2:00 PM DATABASE MANAGEMENT SPECIALIST Appointment [address] [address] Josué Cook MD [address] [address] documented as of this encounter Goals Goal Patient Goal Type Associated Problems Recent Progress Patient-Stated? Author HOME TO INDEPENDENT LIVING [facility] Vannessa Light RN documented as of this encounter Visit Diagnoses Not on filedocumented in this encounter Additional Health Concerns Assessment Noted Time PHQ-9 Depression Total Score: 0 07/06/20 21 4:06 PM DATABASE MANAGEMENT SPECIALIST documented as of this encounter Care Teams Slope Runner Relationship Specialty Start Date End Date Servando Torre MD [address] [place] [address] [address] [place] [address] PCP - General FAMILY PRACTICE 07/17/22 documented as of this encounter
--- OUTSIDE RECORDS SUMMARY | 2024-07-15 17:15 | XMS_ITS | Encounter Summary ---
Author Organization [facility] Address [address] [facility] [address] [place] [address] Care Team Providers Care Electrical Maintenance Man Name Role Phone Servando Torre MD [...] Coronavirus/COVID-19? No / Unsure 08/28/2022 1:37 PM RESEARCH AND DEVELOPMENT RESEARCHER documented as of this encounter Functional Status [...] st Contact Info) Description 08/03/2024 2:00 PM RESEARCH AND DEVELOPMENT RESEARCHER Appointment [address] [address] Josué Cook MD [address] [address] documented as of this encounter Goals Goal Patient Goal Type Associated Problems Recent Progress Patient-Stated? Author HOME TO INDEPENDENT LIVING [facility] Vannessa Light RN documented as of this encounter Visit Diagnoses Not on filedocumented in this encounter Additional Health Concerns Assessment Noted Time PHQ-9 Depression Total Score: 0 07/06/20 21 4:06 PM RESEARCH AND DEVELOPMENT RESEARCHER documented as of this encounter Care Teams Electrical Maintenance Man Relationship Specialty Start Date End Date Servando Torre MD [address] [place] [address] [address] [place] [address] PCP - General FAMILY PRACTICE 07/17/22 documented as of this encounter
--- OUTSIDE RECORDS SUMMARY | 2024-07-15 17:15 | XMS_ITS | Encounter Summary ---
Author Organization [facility] Address [address] [place] [address] [place] [address] Care Team Providers Care Pharmacy Technician Instructor Name Role Phone Servando Torre MD Primary Care Provider [phone] Encounter Details Date Type Department Care Team [...] Coronavirus/COVID-19? No / Unsure 07/17/2022 1:45 PM VISE HAND documented as of this encounter Functional Status [...] st Contact Info) Description 08/03/2024 2:00 PM VISE HAND Appointment [address] [address] Josué Cook MD [address] [address] documented as of this encounter Goals Goal Patient Goal Type Associated Problems Recent Progress Patient-Stated? Author HOME TO INDEPENDENT LIVING [facility] Vannessa Light RN documented as of this encounter Visit Diagnoses Not on filedocumented in this encounter Additional Health Concerns Assessment Noted Time PHQ-9 Depression Total Score: 0 07/06/20 21 4:06 PM VISE HAND documented as of this encounter Care Teams Pharmacy Technician Instructor Relationship Specialty Start Date End Date Servando Torre MD [address] [place] [address] [address] [place] [address] PCP - General FAMILY PRACTICE 07/17/22 documented as of this encounter
--- OUTSIDE RECORDS SUMMARY | 2024-07-15 17:15 | XMS_ITS | Encounter Summary ---
Author Organization [facility] Address [address] [place] [address] [place] [address] Care Team Providers Care Prison Guard Name Role Phone Servando Torre MD Primary Care Provider [phone] Encounter Details Date Type Department Care Team (Late st Contact Info) Description 07/19/2022 Orders Only [facility] [address] [place] [address] [address] [place] [address] Alen Corbett, DO [address] [address] Social History Tobacco Use Types Packs/Day Years [...] Coronavirus/COVID-19? No / Unsure 07/17/2022 1:45 PM LIGHT RAIL SIGNAL TECHNICIAN documented as of this encounter Functional Status [...] st Contact Info) Description 08/03/2024 2:00 PM LIGHT RAIL SIGNAL TECHNICIAN Appointment [address] [address] Josué Cook MD 4921 [facility] 8 [place] [address] documented as of this encounter Goals Goal Patient Goal Type Associated Problems Recent Progress Patient-Stated? Author HOME TO INDEPENDENT LIVING General No Vannessa Blackwell RN documented as of this encounter Visit Diagnoses Not on filedocumented in this encounter Additional Health Concerns Assessment Noted Time PHQ-9 Depression Total Score: 0 07/06/20 21 4:06 PM LIGHT RAIL SIGNAL TECHNICIAN documented as of this encounter Care Teams Prison Guard Relationship Specialty Start Date End Date Servando Torre MD [address] [facility] [address] [place] [address] PCP - General FAMILY PRACTICE 07/17/22 documented as of this encounter
--- OUTSIDE RECORDS SUMMARY | 2024-07-15 17:15 | XMS_ITS | Encounter Summary ---
Author Organization [facility] Address [address] [place] [address] [place] [address] Care Team Providers Care Feller Operator Name Role Phone Servando Torre MD Primary Care Provider + [phone] Reason for Visit * Treatment/Therapy Plan Authorization (Routine) - Closed Specialty Diagnoses / Procedures Referred By Angel braswell Referred To Contact Diagnoses Chronic ulcerative colitis, unspecified complication ([facility]/HCC [facility]) Procedures VEDOLIZUMAB, INJECTION [facility] [address] [place] [address] Phone: tel: [facility] [address] [place] [address] Phone: tel: Referral ID Status Reason Start Date Expiration Date Visits Re quested Visits Authorized [id number] Closed 06/18/2022 3 3 Encounter Details Date Type Department Care Team (Latest Contact Info) Description 07/31/2022 1:42 PM MACHINIST 2ND SHIFT - 07/31/2022 4:09 PM [facility] Hospital Encounter [facility] [address] [place] [address] Mariela Denton MD [facility] [address] [place] [address] Discharge Disposition: Home or Self Care (Routine [...] Coronavirus/COVID-19? No / Unsure 07/31/2022 1:38 PM MACHINIST 2ND SHIFT documented as of this encounter Last Filed Vital Signs Vital Sign Reading Time Taken Comments Blood Pressure 138/55 07/31/2022 4:00 PM MACHINIST 2ND SHIFT Pulse 77 07/31/2022 4:00 PM MACHINIST 2ND SHIFT Temperature 36.8 ??C (98.3 ??F) 07/31/2022 2:38 PM CS T Respiratory Rate - - Oxygen Saturation 98% 07/31/2022 4:00 PM MACHINIST 2ND SHIFT Inhaled Oxygen Concentration - - Weight - [...] st Contact Info) Description 08/03/2024 2:00 PM MACHINIST 2ND SHIFT Appointment [facility] Day [facility] [address] [place], [place] [address] Josué Cook MD [address] [facility] 8 [place] [address] documented as of this encounter Goals Goal Patient Goal Type Associated Problems Recent Progress Patient-Stated? Author HOME TO [facility] Vannessa Light RN documented as of this encounter Visit Diagnoses Diagnosis Chronic ulcerative colitis, unspecified complication ([facility] HHS/HCC)- Primary documented in this encounter Administered [...] in 24 hours.Indications:Chronic ulcerative colitis, unspecified complication ([facility] HHS/HCC) diphenhydrAMINE (BENADRYL) capsule 25 mg 25 mg, Oral, Once as needed, premedicate 30 mins prior to infusion, 1 dose, Starting on Fri07/31/22 at 1425, Until Fri07/31/22 at 1433Indications:Chronic ulcerative colitis, unspecified complication ([facility] HHS/HCC) Given 07/31/2022 2:33 PM MACHINIST 2ND SHIFT 25 mg vedolizumab (ENTYVIO) 300 mg in [...] NS after completion.Indications:Chronic ulcerative colitis, unspecified complication ([facility] HHS/HCC) New Bag 07/31/2022 3:08 PM MACHINIST 2ND SHIFT 300 mg 500 mL/hr documented in this encounter Active and Recently Administered Medications Times are shown in MACHINIST 2ND SHIFT. Scheduled Medication Order 07/29/2022 07/30/2022 07/31/2022 vedolizumab [...] Total Score: 0 07/06/20 21 4:06 PM MACHINIST 2ND SHIFT documented as of this encounter Care Teams Feller Operator Relationship Specialty Start Date End Date Servando Torre MD [address] [place] [address] [address] [place] [address] PCP - General FAMILY PRACTICE 07/17/22 documented as of this encounter
--- OUTSIDE RECORDS SUMMARY | 2024-07-15 17:15 | XMS_ITS | Encounter Summary ---
Author Organization [facility] Address [address] [facility] [place] [address] [place] [address] Care Team Providers Care Laundry Attendant Name Role Phone Servando Torre MD Primary Care Provider [phone] Encounter Details Date Type Department Care Team (Late st Contact Info) Description 07/19/2022 Orders Only [facility] [address] [place] [address] [address] [place] [address] Alen Corbett, DO [address] [address] Social History Tobacco Use Types Packs/Day Years [...] Coronavirus/COVID-19? No / Unsure 07/17/2022 1:45 PM COFFERDAM CONSTRUCTION SUPERVISOR documented as of this encounter Functional Status [...] st Contact Info) Description 08/03/2024 2:00 PM COFFERDAM CONSTRUCTION SUPERVISOR Appointment [address] [address] Josué Cook MD 4921 [facility] 8 [place] [address] documented as of this encounter Goals Goal Patient Goal Type Associated Problems Recent Progress Patient-Stated? Author HOME TO INDEPENDENT LIVING General No Vannessa Blackwell RN documented as of this encounter Visit Diagnoses Not on filedocumented in this encounter Additional Health Concerns Assessment Noted Time PHQ-9 Depression Total Score: 0 07/06/20 21 4:06 PM COFFERDAM CONSTRUCTION SUPERVISOR documented as of this encounter Care Teams Laundry Attendant Relationship Specialty Start Date End Date Servando Torre MD [address] [facility] [address] [place] [address] PCP - General FAMILY PRACTICE 07/17/22 documented as of this encounter
--- OUTSIDE RECORDS SUMMARY | 2024-07-15 17:15 | XMS_ITS | Encounter Summary ---
Author Organization [facility] Address [address] [facility] [place] [address] [place] [address] Care Team Providers Care Software Development Coordinator Name Role Phone Servando Torre MD Primary Care Provider + [phone] Reason for Visit * Treatment/Therapy Plan Authorization (Routine) - Closed Specialty Diagnoses / Procedures Referred By Angel braswell Referred To Contact Diagnoses Chronic ulcerative colitis, unspecified complication ([facility]/HCC [facility]) Procedures VEDOLIZUMAB, INJECTION [facility] [address] [place] [address] Phone: tel: [facility] [address] [place] [address] Phone: tel: Referral ID Status Reason Start Date Expiration Date Visits Re quested Visits Authorized [id number] Closed 06/18/2022 3 3 Encounter Details Date Type Department Care Team (Latest Contact Info) Description 08/28/2022 1:41 PM DIETITIAN THERAPEUTIC - 08/28/2022 3:13 PM DIETITIAN THERAPEUTIC Hospital Encounter [facility] [address] [place] [address] Mariela Denton MD [address] [place] [address] Discharge Disposition: Home or Self Care (Routine [...] Coronavirus/COVID-19? No / Unsure 08/28/2022 1:37 PM DIETITIAN THERAPEUTIC documented as of this encounter Last Filed Vital Signs Vital Sign Reading Time Taken Comments Blood Pressure 170/77 08/28/2022 3:00 PM DIETITIAN THERAPEUTIC Pulse 68 08/28/2022 3:00 PM DIETITIAN THERAPEUTIC Temperature 36.9 ??C (98.4 ??F) 08/28/2022 3:00 PM CS T Respiratory Rate 18 08/28/2022 2:00 PM DIETITIAN THERAPEUTIC Oxygen Saturation 99% 08/28/2022 3:00 PM DIETITIAN THERAPEUTIC Inhaled Oxygen Concentration - - Weight - [...] st Contact Info) Description 08/03/2024 2:00 PM DIETITIAN THERAPEUTIC Appointment [facility] [address] [place], [place] [id number] Josué Cook MD [address] [address] documented as of this encounter Goals Goal Patient Goal Type Associated Problems Recent Progress Patient-Stated? Author HOME TO [facility] Vannessa Light RN documented as of this encounter Visit Diagnoses Diagnosis Chronic ulcerative colitis, unspecified complication ([facility] HHS/HCC)- Primary [...] in 24 hours.Indications:Chronic ulcerative colitis, unspecified complication ([facility] HHS/HCC) diphenhydrAMINE (BENADRYL) capsule 25 mg 25 mg, Oral, Once as needed, premedicate 30 mins prior to infusion, 1 dose, Starting on Fri08/28/22 at 1343, Until Fri08/28/22 at 1714Indications:Chronic ulcerative colitis, unspecified complication ([facility] HHS/HCC) vedolizumab (ENTYVIO) 300 mg in sodium [...] colitis, unspecified complication ([facility] HHS/HCC) New Bag 08/28/2022 2:07 PM DIETITIAN THERAPEUTIC 300 mg 500 mL/hr documented in this encounter Active and Recently Administered Medications Times are shown in DIETITIAN THERAPEUTIC. Scheduled Medication Order 08/26/2022 08/27/2022 08/28/2022 vedolizumab [...] Depression Total Score: 0 07/06/20 4:06 PM DIETITIAN THERAPEUTIC documented as of this encounter Care Teams Software Development Coordinator Relationship Specialty Start Date End Date Servando Torre MD [address] [facility] [address] [place] [address] PCP - General FAMILY PRACTICE 07/17/22 documented as of this encounter
--- OUTSIDE RECORDS SUMMARY | 2024-07-15 17:15 | XMS_ITS | Encounter Summary ---
Author Organization [facility] Address [address] [place] [address] [place] [address] Care Team Providers Care Tag Stringer Name Role Phone Servando Torre MD Primary [...] Contact Info) Description 08/03/2024 2:00 PM CUSTOMER RELATIONS COORDINATOR Appointment [address] [address] Josué Cook MD [address] [address] documented as of this encounter Goals Goal Patient Goal Type Associated Problems Recent Progress Patient-Stated? Author HOME TO INDEPENDENT LIVING [facility] No Vannessa Blackwell RN documented as of this encounter Visit Diagnoses Not on filedocumented in this encounter Additional Health Concerns Assessment Noted Time PHQ-9 Depression Total Score: 0 07/06/20 21 4:06 PM CUSTOMER RELATIONS COORDINATOR documented as of this encounter Care Teams Tag Stringer Relationship Specialty Start Date End Date Servando Torre MD [address] [place] [address] [address] [place] [address] PCP - General FAMILY PRACTICE 07/17/22 documented as of this encounter
--- OUTSIDE RECORDS SUMMARY | 2024-07-15 17:15 | XMS_ITS | Encounter Summary ---
Author Organization [facility] Address [address] [facility] [address] [place] [address] Care Team Providers Care Drying Tumbler Operator Name Role Phone Servando Torre MD Primary Care Provider + [phone] Reason for Visit * Treatment/Therapy Plan Authorization (Routine) - Closed Specialty Diagnoses / Procedures Referred By Angel braswell Referred To Contact Diagnoses Chronic ulcerative colitis, unspecified complication ([facility]/HCC [facility]) Procedures VEDOLIZUMAB, INJECTION [facility] [address] [place] [address] Phone: tel: [facility] [address] [place] [address] Phone: tel: Referral ID Status Reason Start Date Expiration Date Visits Re quested Visits Authorized [id number] Closed 06/18/2022 3 3 Encounter Details Date Type Department Care Team (Latest Contact Info) Description 10/23/2022 2:08 PM CDT - 10/23/2022 4:00 PM CDT Hospital Encounter [facility] [address] [place] [address] Mariela Denton MD [address] [place] [address] Discharge Disposition: Home or Self Care (Routine [...] Contact Info) Description 08/03/2024 2:00 PM PLATE FILLER Appointment [address] [address] Josué Cook MD [facility] 8 [place] [address] documented as of this encounter Goals Goal Patient Goal Type Associated Problems Recent Progress Patient-Stated? Author HOME TO [facility] No Rishi, Vannessa M, RN documented as [...] - 8.2 G/DL 10/23/2022 3:01 PM T [facility] ALBUMIN S/P/B 3.8 3.4 - 5.0 G/DL 10/23/2022 3:01 PM T [facility] BILIRUBIN TOTAL S/P/B 0.4 0.2 - 1.2 MG/DL 10/23/2022 3:01 PM [facility] BILIRUBIN DIRECT S/P/B 0.1 0.0 - 0.20 MG/DL 10/23/2022 3:01 PM [facility] BILIRUBIN INDIRECT S/P/B 0.3 0.0 - 0.9 MG/DL 10/23/2022 3:01 PM T [facility] ALKALINE PHOSPHATASE S/P/B 74 50 - 136 U/L 10/23/2022 3:01 PM [facility] AST 29 15 - 37 U/L 10/23/2022 3:01 PM T [facility] ALT 31 14 - 55 U/L 10/23/2022 3:01 PM [facility] A/G RATIO 0.9(L) 1.0 - 2.0 RATIO 10/23/2022 3:01 PM [facility] 10/23/2022 2:45 PM CDT us Mariela Denton MD LABORATORY Final Res ult [facility] [address] [place] [address], [place] [phone] * (ABNORMAL) CBC W/DIFF AUTOMATED (10/23/2022 2:45 PM CDT) WBC 7.90 4.4 - 11.0 x10'3/uL 10/23/2022 2:50 PM CDT [facility] RBC 4.81 4.50 - 5.10 x10'6/uL 10/23/2022 2:50 PM CDT [facility] HGB 14.2 12.3 - 15.3 G/DL 10/23/2022 2:50 PM CDT [facility] HCT 43.4 35.9 - 44.6 % 10/23/2022 2:50 PM CDT [facility] MCV 90.2 80.0 - 96.0 FL 10/23/2022 2:50 PM CDT [facility] MCH 29.5 25.3 - 30.9 PG 10/23/2022 2:50 PM CDT [facility] MCHC 32.7 31.0 - 34.1 G/DL 10/23/2022 2:50 PM CDT [facility] RDW 14.4 12.4 - 15.1 % 10/23/2022 2:50 PM CDT [facility] PLT 251 151 - 353 x10'3/uL 10/23/2022 2:50 PM CDT [facility] MPV 8.8(L) 9.6 - 12.0 FL 10/23/2022 2:50 PM CDT [facility] RBC MORPHOLOGY NORMAL 10/23/2022 2:50 PM CDT [facility] PLT MORPH. NORMAL 10/23/2022 2:50 PM CDT [facility] WBC MORPHOLOGY NORMAL 10/23/2022 2:50 PM CDT [facility] LYMPHOCYTES % 31.1 15.8 - 45.0 % 10/23/2022 2:50 PM CDT [facility] NEUTROPHILS % 57.7 42.1 - 71.9 % 10/23/2022 2:50 PM CDT [facility] MONOCYTES % 7.3 5.7 - 12.5 % 10/23/2022 2:50 PM CDT [facility] EOSINOPHILS 2.9 0.0 - 5.6 % 10/23/2022 2:50 PM CDT [facility] BASOPHILS 0.6 0.0 - 1.3 % 10/23/2022 2:50 PM CDT [facility] ABS. NEUTROPHILS 4.55 1.40 - 6.00 x10'3/uL 10/23/2022 2:50 PM CDT [facility] IMMATURE GRANS % 0.4 0.0 - 0.5 % 10/23/2022 2:50 PM CDT [facility] ABS. LYMPHOCYTES 2.46 0.80 - 4.70 x10'3/uL 10/23/2022 2:50 PM CDT [facility] 10/23/2022 2:45 PM CDT us Mariela Denton MD LABORATORY Final Res ult [facility] [address] [place] [address], [place] [phone] documented in this encounter Visit Diagnoses Diagnosis Chronic ulcerative colitis, unspecified complication ([facility]/HCC)- Primary documented in this encounter Administered Medications [...] in 24 hours.Indications:Chronic ulcerative colitis, unspecified complication ([facility] HHS/HCC) acetaminophen (TYLENOL) tablet 650 mg 650 mg, Oral, Once as needed, Mild pain (Scale 1 - 3), 1 dose, Starting on Fri10/23/22 at 1414, Until Fri10/23/22 at 1446, Administer 30 mins prior to infusion Maximum dose of acetaminophen is 4000 mg from all sources in 24 hours.Indications:Chronic ulcerative colitis, unspecified complication ([facility]) Given 10/23/2022 2:46 PM CDT 650 mg diphenhydrAMINE (BENADRYL) capsule 25 mg 25 mg, Oral, Once as needed, premedicate 30 mins prior to infusion, 1 dose, Starting on Fri10/23/22 at 1414, Until Fri10/23/22 at 1446Indications:Chronic ulcerative colitis, unspecified complication ([facility] HHS/HCC) Given 10/23/2022 2:46 PM CDT 25 [...] increased heart rate).Indications:Chronic ulcerative colitis, unspecified complication ([facility] HHS/HCC) EPINEPHrine PF (ADRENALIN) 1 mg/mL injection 0.3 mg 0.3 mg, Intramuscular, Every 5 min PRN, Other, Severe hypersensitivity reaction (dyspnea, bronchospasm, urticaria, flushing, rash, and increased heart rate), 3 doses, Starting on Fri10/23/22 at 1414, Until Fri10/23/22 at 1804, Severe hypersensitivity reaction (dyspnea, bronchospasm, urticaria, flushing, rash, and increased heart rate)Indications:Chronic ulcerative colitis, unspecified complication ([facility]) vedolizumab (ENTYVIO) 300 mg in sodium chloride [...] completion.Indications:Chronic ulcerative colitis, unspecified complication ([facility] HHS/HCC) New Bag 10/23/2022 2:48 PM CDT [...] Total Score: 0 07/06/20 4:06 PM PLATE FILLER documented as of this encounter Care Teams Drying Tumbler Operator Relationship Specialty Start Date End Date Servando Torre MD [address] [place] [address] [address] [place] [address] PCP - General FAMILY PRACTICE 07/17/22 documented as of this encounter
--- OUTSIDE RECORDS SUMMARY | 2024-07-15 17:16 | XMS_ITS | Encounter Summary ---
Author Organization [facility] Address [address] [facility] [place] [address] [place] [address] Care Team Providers Care Cook Manager Name Role Phone Jared Abrams MD Primary Care Provider [phone] Reason for Visit * Reason Comments Follow Up On mesalamine also a zathioprine here for follow up states the new med isnt helping much * Consultation/Treatment (Routine) - Closed Specialty Diagnoses / Procedures Referred By Angel braswell Referred To Contact GASTROENTEROLOGY Diagnoses FU Procedures FOLLOW UP Jared Abrams MD [facility] [place] [address] Phone: tel: fax: Vladimir Parsons MD [address] [address] Phone: tel: fax: Referral ID Status Reason Start Date Expiration Date Visits Re quested Visits Authorized [id number] Closed 11/16/2020 07/06/2022 100 100 Encounter Details Date Type Department Care Team (Latest Contact Info) Description 04/19/2022 2:00 PM CDT Office Visit [facility] G[facility]ology Specialty Clinic [address] [address] Vladimir Parsons MD [address] [address] Follow Up (On mesalamine also [...] biopsies performed by Vladimir Parsons MD at [facility] OR ??? PARTIAL HIP REPLACEMENT Left ??? SIGMOIDOSCOPY N/A 10/05/2021 Sigmoidoscopy w/ Biopsy performed by Vladimir Parsons MD at [facility] OR ??? TUBAL LIGATION PE: Filed Vitals: [...] st Contact Info) Description 08/03/2024 2:00 PM PAN CLEANER Appointment [address] [address] Josué Cook MD [address] [address] documented as of this encounter Goals Goal Patient Goal Type Associated Problems Recent Progress Patient-Stated? Author [facility] General Vannessa Light, RN documented as of this encounter Visit Diagnoses Diagnosis Colitis- Primary Other and unspecified noninfectious gastroenteritis and colitis documented in this encounter Additional Health Concerns Assessment Noted Time PHQ-9 Depression Total Score: 0 07/06/20 21 4:06 PM PAN CLEANER documented as of this encounter Care Teams Cook Manager Relationship Specialty Start Date End Date Jared Abrams MD PCP - General 08/28/11 07/16/22 documented as of this encounter
--- OUTSIDE RECORDS SUMMARY | 2024-07-15 17:16 | XMS_ITS | Encounter Summary ---
Author Organization [facility] Address [address] [facility] [place] [place] [address] [place] [address] Care Team Providers Care Item Processor Name Role Phone Jared Abrams MD Primary Care Provider [phone] Encounter Details Date Type Department Care Team (Late st Contact Info) Description 06/20/2022 Orders Only [facility] [address] [facility] [address] [place] [address] Alen Corbett, DO [address] [address] Social History Tobacco Use Types Packs/Day Years [...] st Contact Info) Description 08/03/2024 2:00 PM STUMP BLOWER Appointment [address] [address] Josué Cook MD [address] [address] documented as of this encounter Goals Goal Patient Goal Type Associated Problems Recent Progress Patient-Stated? Author [facility] General No Vannessa Blackwell RN documented as of this encounter Visit Diagnoses Not on filedocumented in this encounter Additional Health Concerns Assessment Noted Time PHQ-9 Depression Total Score: 0 07/06/20 21 4:06 PM STUMP BLOWER documented as of this encounter Care Teams Item Processor Relationship Specialty Start Date End Date Jared Abrams MD PCP - General 08/28/11 07/16/22 documented as of this encounter
--- OUTSIDE RECORDS SUMMARY | 2024-07-15 17:16 | XMS_ITS | Encounter Summary ---
Author Organization [facility] Address [address] [facility] [place] [address] [place] [address] Care Team Providers Care Floor And Wall Applier Liquid Name Role Phone Jared Abrams MD Primary Care Provider [phone] Encounter Details Date Type Department Care Team (Late st Contact Info) Description 06/22/2022 Orders Only [facility] [address] [facility] [address] [place] [address] Alen Corbett, DO [address] [address] Social History Tobacco Use Types Packs/Day Years [...] st Contact Info) Description 08/03/2024 2:00 PM GATE MANAGER Appointment [address] [address] Josué Cook MD [address] [address] documented as of this encounter Goals Goal Patient Goal Type Associated Problems Recent Progress Patient-Stated? Author [facility] General No Vannessa Blackwell RN documented as of this encounter Visit Diagnoses Not on filedocumented in this encounter Additional Health Concerns Assessment Noted Time PHQ-9 Depression Total Score: 0 07/06/20 21 4:06 PM GATE MANAGER documented as of this encounter Care Teams Floor And Wall Applier Liquid Relationship Specialty Start Date End Date Jared Abrams MD PCP - General 08/28/11 07/16/22 documented as of this encounter
--- OUTSIDE RECORDS SUMMARY | 2024-07-15 17:16 | XMS_ITS | Encounter Summary ---
Author Organization [facility] Address [address] [facility] [place] [address] [place] [address] Care Team Providers Care Pari Mutual Ticket Checker Name Role Phone Jared Abrams MD Primary Care Provider [phone] Encounter Details Date Type Department Care Team [...] Coronavirus/COVID-19? No / Unsure 10/05/2021 9:27 AM QUALITY PROCESS ENGINEER documented as of this encounter Functional [...] st Contact Info) Description 08/03/2024 2:00 PM QUALITY PROCESS ENGINEER Appointment [address] [address] Josué Cook MD [address] [address] documented as of this encounter Goals Goal Patient Goal Type Associated Problems Recent Progress Patient-Stated? Author [facility] General No Vannessa Blackwell RN documented as of this encounter Visit Diagnoses Not on filedocumented in this encounter Additional Health Concerns Assessment Noted Time PHQ-9 Depression Total Score: 0 07/06/20 21 4:06 PM QUALITY PROCESS ENGINEER documented as of this encounter Care Teams Pari Mutual Ticket Checker Relationship Specialty Start Date End Date Jared Abrams MD PCP - General 08/28/11 07/16/22 documented as of this encounter
--- OUTSIDE RECORDS SUMMARY | 2024-07-15 17:16 | XMS_ITS | Encounter Summary ---
Author Organization [facility] Address [address] [place] [address] [place] [address] Care Team Providers Care Pail Tester Name Role Phone Jared Abrams MD Primary Care Provider [phone] Reason for Visit * Reason Onset Date Comments Medication Information 04/25/2022 Medication Problem 04/25/2022 Encounter Details Date Type Department Care Team (Late st Contact Info) Description 04/25/2022 Telephone [facility] Medical Group Multispecialty Care - [facility] [address] [facility], [address] [place] [address] Vladimir Parsons MD [address] [place] [address] [address] [place] [address] Medication Information; Medication Problem Social [...] - 05/01/2022 11:47 AM CDT Evelyne with [facility] has requested a call from someone regarding the Azathioprine prescription. Shestates the directions they received still are not accurate. It states to dispense 1 50mg tab daily and then states 100mg daily on the script as well. She says they have been attempting to correct thescript for two weeks now and would rather speak directly to someone to resolve. [phone] * Liu Caballero NP - 04/26/2022 2:27 PM CDTAddended by: LIU CABALLERO on: 04/26/2022 02:27 PM Modules accepted: Orders * Liu Caballero NP - 04/26/2022 2:27 PM CDT Resent correct prescription * Kimberley Pang - 04/26/2022 12:58 PM CDT Spoke with pharmacist prescription quantity does not match up with directions. * Laya Gaxiola - 04/25/2022 3:08 PM CDT Evelyne from [facility] pharmacy called and stated that she is needing clarification on the Pt Azathioprine prescription. Please give Evelyne a call back to discuss [phone] documented in this encounter Plan of Treatment Upcoming Encounters Date Type Department Care Team (Late st Contact Info) Description 08/03/2024 2:00 PM ROUTE SALES ASSOCIATE Appointment [facility] [address] [place] [address] Josué Cook MD [address] [facility] 8 [place] [address] documented as of this encounter Goals Goal Patient Goal Type Associated Problems Recent Progress Patient-Stated? Author HOME TO [facility] Vannessa Light RN documented as of this encounter Visit Diagnoses Diagnosis Colitis Other and unspecified noninfectious gastroenteritis and colitis documented in this encounter Additional Health Concerns Assessment Noted Time PHQ-9 Depression Total Score: 0 07/06/20 21 4:06 PM ROUTE SALES ASSOCIATE documented as of this encounter Care Teams Pail Tester Relationship Specialty Start Date End Date Jared Abrams MD PCP - General 08/28/11 07/16/22 documented as of this encounter
--- OUTSIDE RECORDS SUMMARY | 2024-07-15 17:16 | XMS_ITS | Encounter Summary ---
Author Organization [facility] Address [address] [facility] [place] [address] [place] [address] Care Team Providers Care Administrative Support Manager Name Role Phone Jared Abrams MD Primary Care Provider Reason for Visit * Reason Onset Date Comments Prior Authorization 01/25/2022 Encounter Details Date Type Department Care Team (Late st Contact Info) Description 01/25/[address] [facility] Medical [facility] Multispecialty Care - [facility] [address] [facility], [address] [place] [phone] Vladimir Parsons MD 3 [facility] [address] [place] [address] Prior Authorization Social History Tobacco Use Types [...] auth has been initiated per Jody at [facility] we will receive a fax decision within [...] the Azathioprine 50mg script. option #3, phone [phone] documented in this encounter Plan of Treatment Upcoming Encounters Date Type Department Care Team (Late st Contact Info) Description 08/03/2024 2:00 PM GAS PROCESSING PLANT OPERATOR Appointment [facility] [address] [place] [address] Josué Cook MD [facility] [address] [address] documented as of this encounter Goals Goal Patient Goal Type Associated Problems Recent Progress Patient-Stated? Author [facility] TO [facility] General No Vannessa Blackwell RN documented as of this encounter Visit Diagnoses Not on filedocumented in this encounter Additional Health Concerns Assessment Noted Time PHQ-9 Depression Total Score: 0 07/06/20 21 4:06 PM GAS PROCESSING PLANT OPERATOR documented as of this encounter Care Teams Administrative Support Manager Relationship Specialty Start Date End Date Jared Abrams MD PCP - General 08/28/11 07/16/22 documented as of this encounter
--- OUTSIDE RECORDS SUMMARY | 2024-07-15 17:16 | XMS_ITS | Encounter Summary ---
Author Organization [facility] Address [address] [facility] [address] [place] [address] Care Team Providers Care Radiator Repairer Name Role Phone Jared Abrams MD Primary Care Provider [phone] Reason for Visit * Reason Comments Follow Up Path results * Consultation/Treatment (Routine) - Closed Specialty Diagnoses / Procedures Referred By Angel braswell Referred To Contact GASTROENTEROLOGY Diagnoses FU Procedures FOLLOW UP Jared Abrams MD [address] [place] [address] Phone: tel: fax: Vladimir Parsons MD [address] [address] Phone: tel: fax: Referral ID Status Reason Start Date Expiration Date Visits Re quested Visits Authorized [id number] Closed 11/16/2020 07/06/2022 100 100 Encounter Details Date Type Department Care Team (Latest Contact Info) Description 10/26/2021 2:40 PM CDT Office Visit [facility] Medical Group Gastroenterology Specialty Clinic [address] [address] Vladimir Parsons MD [address] [address] Follow Up (Path results) Social [...] biopsies performed by Vladimir Parsons MD at [facility] OR ??? PARTIAL HIP REPLACEMENT Left ??? SIGMOIDOSCOPY N/A 10/05/2021 Sigmoidoscopy w/ Biopsy performed by Vladimir Parsons MD at [facility] OR ??? TUBAL LIGATION PE: Filed [...] st Contact Info) Description 08/03/2024 2:00 PM CLAIMS ANALYST Appointment [facility] [address] [id number] Josué Cook MD [address] [facility] 8 [place] [address] documented as of this encounter Goals Goal Patient Goal Type Associated Problems Recent Progress Patient-Stated? Author HOME TO [facility] Vannessa Light RN documented as of this encounter Visit Diagnoses Diagnosis Colitis- Primary Other and unspecified noninfectious gastroenteritis and colitis documented in this encounter Additional Health Concerns Assessment Noted Time PHQ-9 Depression Total Score: 0 07/06/20 21 4:06 PM CLAIMS ANALYST documented as of this encounter Care Teams Radiator Repairer Relationship Specialty Start Date End Date Jared Abrams MD PCP - General 08/28/11 07/16/22 documented as of this encounter
--- OUTSIDE RECORDS SUMMARY | 2024-07-15 17:16 | XMS_ITS | Encounter Summary ---
Author Organization [facility] Address [address] [facility] [place] [address] [place] [address] Care Team Providers Care Drapery Hemmer Automatic Name Role Phone Jared Abrams MD Primary Care Provider [phone] Reason for Visit * Reason Comments Diarrhea Diarrhea off and on since since procedure in September. She goes about 5 to 6 times a day. Mesalamine does not seems to have made a difference. * Consultation/Treatment (Routine) - Closed Specialty Diagnoses / Procedures Referred By Angel braswell Referred To Contact GASTROENTEROLOGY Diagnoses FOLLOW UP Jared Abrams MD [facility] [place] [address] Phone: tel: fax: Vladimir Parsons MD [address] [address] Phone: tel: fax: Referral ID Status Reason Start Date Expiration Date Visits Re quested Visits Authorized [id number] Closed 07/07/2020 07/07/2022 100 100 Encounter Details Date Type Department Care Team (Latest Contact Info) Description 01/11/2022 1:00 PM CDT Office Visit [facility] Medical Group Gastroenterology Specialty Clinic [address] [phone] Vladimir Parsons MD [address] [address] Diarrhea (Diarrhea off and on [...] performed by Vladimir Parsons MD at [facility] OR ??? PARTIAL HIP REPLACEMENT Left ??? SIGMOIDOSCOPY N/A 10/05/2021 Sigmoidoscopy w/ Biopsy performed by Vladimir Parsons MD at [facility] OR ??? TUBAL LIGATION PE: Filed Vitals: [...] st Contact Info) Description 08/03/2024 2:00 PM EMERGENCY MANAGEMENT SYSTEM DIRECTOR Appointment [facility] [address] [place], [place] [id number] Josué Cook MD [address] [facility] 8 [place] [address] documented as of this encounter Goals Goal Patient Goal Type Associated Problems Recent Progress Patient-Stated? Author HOME TO [facility] Vannessa Light RN documented as of this encounter Results * QUANTIFERON-TB GOLD PLUS, 4T (01/17/2022 9:57 AM CDT) Pathologist [facility] NIL (TB) 0.02 01/22/2022 2:30 PM CDT [facility] MITOGEN NIL >10.00 01/22/2022 2:30 PM CDT [facility] TB1 AG MINUS NIL 0.01 01/22/2022 2:30 PM CDT [facility] TB2 AG MINUS NIL 0.01 01/22/2022 2:30 PM CDT [facility] 01/17/2022 9:57 AM CDT us Vladimir Parsons MD LABORATORY Final Result [facility] [address] [place] [address], [place] [phone] * HEPATITIS PANEL,ACUTE (01/17/2022 9:57 AM CDT) [...] LABORATORY Final Result [facility] [address] [place] [id number], * TPMT ACTIVITY (01/17/2022 9:57 AM CDT) TPMT ACTIVITY 13 01/24/2022 12:46 AM CDT [facility] Comment: Units: ??nmol/hr/mL RBC Reference Range for TPMT Activity: ??>12 ? Normal 4-12 ? Heterozygote or low metabolizer ?? <4 ? Homozygote Deficient Range This test was developed and its analytical performance characteristics have been determined by [facility]. It has not been cleared or approved by FDA. This assay has been validated pursuant to the CLIA regulations and is used for clinical purposes. Test performed by [facility] ? [address], ? [place] [address] ? Manager Care Management: Lillian Duong MD,PHD,JOVANY Test Reported by Sierra Nelson [facility], [address] [place], [place] Gamal Gao M.D., Ph.D., Director of Laboratories , [place] [id number] 01/17/2022 9:57 AM CDT us Vladimir Parsons MD LABORATORY Final Result [facility] [address] [place] [address], documented in this encounter Visit Diagnoses Diagnosis UC (ulcerative colitis confined to rectum) ([facility])- Primary Ulcerative (chronic) proctitis Diarrhea, unspecified type documented in this encounter Additional Health Concerns Assessment Noted Time PHQ-9 Depression Total Score: 0 07/06/20 21 4:06 PM EMERGENCY MANAGEMENT SYSTEM DIRECTOR documented as of this encounter Care Teams Drapery Hemmer Automatic Relationship Specialty Start Date End Date Jared Abrams MD PCP - General 08/28/11 07/16/22 documented as of this encounter
--- OUTSIDE RECORDS SUMMARY | 2024-07-15 17:16 | XMS_ITS | Encounter Summary ---
Author Organization [facility] Address [address] [facility] [place] [address] [place] [address] Care Team Providers Care Client Engagement Manager Name Role Phone Servando Torre MD Primary Care Provider [phone] Reason for Visit * Treatment/Therapy Plan Authorization (Routine) - Closed Specialty Diagnoses / Procedures Referred By Angel braswell Referred To Contact Diagnoses Chronic ulcerative colitis, unspecified complication ([facility]) Procedures VEDOLIZUMAB, INJECTION [facility] [address] [place] [address] Phone: tel: [facility] [address] [place] [address] Phone: tel: Referral ID Status Reason Start Date Expiration Date Visits Re quested Visits Authorized [id number] Closed 06/18/2022 3 3 Encounter Details Date Type Department Care Team (Latest Contact Info) Description 07/17/2022 1:51 PM COSTUME SHOP MANAGER - 07/17/2022 4:30 PM COSTUME SHOP MANAGER Hospital Encounter [facility] [address] [place] [address] Mariela Denton MD [facility] [address] [place] [address] Discharge Disposition: Home or Self Care (Routine [...] Coronavirus/COVID-19? No / Unsure 07/17/2022 1:45 PM COSTUME SHOP MANAGER documented as of this encounter Last Filed Vital Signs Vital Sign Reading Time Taken Comments Blood Pressure 143/64 07/17/2022 4:05 PM COSTUME SHOP MANAGER Pulse 56 07/17/2022 4:05 PM COSTUME SHOP MANAGER Temperature 36.7 ??C (98.1 ??F) 07/17/2022 4:05 PM CS T Respiratory Rate - - Oxygen Saturation 95% 07/17/2022 4:05 PM COSTUME SHOP MANAGER Inhaled Oxygen Concentration - - Weight - [...] st Contact Info) Description 08/03/2024 2:00 PM COSTUME SHOP MANAGER Appointment [facility] Day [facility] [address] [place], [place] [address] Josué Cook MD [address] [facility] 8 [place] [address] documented as of this encounter Goals Goal Patient Goal Type Associated Problems Recent Progress Patient-Stated? Author HOME TO [facility] Vannessa Light RN documented as of this encounter Procedures Procedure Name Priority Date/Time Associated Diagnosis Comments HEPATIC FUNCTION PANEL Routine 07/17/2022 3:00 PM COSTUME SHOP MANAGER Chronic ulcerative colitis, unspecified complication (CMS/HCC HHS/HCC) CBC W/DIFF AUTOMATED Routine 07/17/2022 3:00 PM COSTUME SHOP MANAGER Chronic ulcerative colitis, unspecified complication (CMS/HCC HHS/HCC) documented in this encounter Results * (ABNORMAL) HEPATIC FUNCTION PANEL (07/17/2022 3:00 PM COSTUME SHOP MANAGER) TOTAL PROTEIN S/P/B 6.8 6.4 - 8.2 [...] [facility] 07/17/2022 3:00 PM COSTUME SHOP MANAGER us Mariela Denton MD LABORATORY Final Res ult [facility] [address] [place] [address], * (ABNORMAL) CBC W/DIFF AUTOMATED (07/17/2022 3:00 PM COSTUME SHOP MANAGER) WBC 7.7 4.4 - 11.0 x10'3/uL 07/17/2022 3:12 PM COSTUME SHOP MANAGER [facility] RBC 4.29(L) 4.50 - 5.10 x10'6/uL 07/17/2022 3:12 PM [facility] HGB 12.9 12.3 - 15.3 G/DL 07/17/2022 3:12 PM [facility] HCT 39.8 35.9 - 44.6 % 07/17/2022 3:12 PM [facility] MCV 92.8 80.0 - 96.0 FL 07/17/2022 3:12 PM COSTUME SHOP MANAGER [facility] MCH 30.1 25.3 - 30.9 PG 07/17/2022 3:12 PM COSTUME SHOP MANAGER [facility] MCHC 32.4 31.0 - 34.1 G/DL 07/17/2022 3:12 PM [facility] RDW 14.9 12.4 - 15.1 % 07/17/2022 3:12 PM COSTUME SHOP MANAGER [facility] PLT 263 151 - 353 x10'3/uL 07/17/2022 3:12 PM [facility] MPV 9.1(L) 9.6 - 12.0 FL 07/17/2022 3:12 PM COSTUME SHOP MANAGER [facility] RBC MORPHOLOGY NORMAL 07/17/2022 3:12 PM [facility] PLT MORPH. NORMAL 07/17/2022 3:12 PM COSTUME SHOP MANAGER [facility] WBC MORPHOLOGY NORMAL 07/17/2022 3:12 PM COSTUME SHOP MANAGER [facility] LYMPHOCYTES % 27.8 15.8 - 45.0 % 07/17/2022 3:12 PM COSTUME SHOP MANAGER [facility] NEUTROPHILS % 61.0 42.1 - 71.9 % 07/17/2022 3:12 PM COSTUME SHOP MANAGER [facility] MONOCYTES % 7.7 5.7 - 12.5 % 07/17/2022 3:12 PM [facility] EOSINOPHILS 2.6 0.0 - 5.6 % 07/17/2022 3:12 PM COSTUME SHOP MANAGER [facility] BASOPHILS 0.5 0.0 - 1.3 % 07/17/2022 3:12 PM COSTUME SHOP MANAGER [facility] ABS. NEUTROPHILS 4.70 1.40 - 6.00 x10'3/uL 07/17/2022 3:12 PM COSTUME SHOP MANAGER [facility] IMMATURE GRANS % 0.4 0.0 - 0.5 % 07/17/2022 3:12 PM COSTUME SHOP MANAGER [facility] ABS. LYMPHOCYTES 2.14 0.80 - 4.70 x10'3/uL 07/17/2022 3:12 PM [facility] 07/17/2022 3:00 PM COSTUME SHOP MANAGER us Mariela Denton MD LABORATORY Final Res ult [facility] [address] [place] [address], documented in this encounter Visit Diagnoses Diagnosis [...] complication (CMS/HCC HHS/HCC) Given 07/17/2022 3:10 PM COSTUME SHOP MANAGER 25 mg vedolizumab (ENTYVIO) 300 mg in [...] (CMS/HCC HHS/HCC) New Bag 07/17/2022 3:30 PM COSTUME SHOP MANAGER 300 mg 500 mL/hr documented in this encounter Active and Recently Administered Medications Times are shown in COSTUME SHOP MANAGER. Scheduled Medication Order 07/15/2022 07/16/2022 07/17/2022 vedolizumab [...] Depression Total Score: 0 07/06/20 4:06 PM COSTUME SHOP MANAGER documented as of this encounter Care Teams Client Engagement Manager Relationship Specialty Start Date End Date Servando Torre MD [address] [place] [address] [address] [place] [address] PCP - General FAMILY PRACTICE 07/17/22 documented as of this encounter
--- OUTSIDE RECORDS SUMMARY | 2024-07-15 17:16 | XMS_ITS | Encounter Summary ---
Author Organization [facility] Address [address] [facility] [place] [address] [place] [address] Care Team Providers Care Asphalt Smoother Name Role Phone Jared Abrams MD Primary Care Provider [phone] Encounter Details Date Type Department Care Team [...] st Contact Info) Description 08/03/2024 2:00 PM EXPERIMENTAL MECHANIC Appointment [address] [address] Josué Cook MD [address] [address] documented as of this encounter Goals Goal Patient Goal Type Associated Problems Recent Progress Patient-Stated? Author HOME TO [facility] General No Vannessa Blackwell RN documented as of this encounter Visit Diagnoses Not on filedocumented in this encounter Additional Health Concerns Assessment Noted Time PHQ-9 Depression Total Score: 0 07/06/20 21 4:06 PM EXPERIMENTAL MECHANIC documented as of this encounter Care Teams Asphalt Smoother Relationship Specialty Start Date End Date Jared Abrams MD PCP - General 08/28/11 07/16/22 documented as of this encounter
--- OUTSIDE RECORDS SUMMARY | 2024-07-15 17:16 | XMS_ITS | Encounter Summary ---
Author Organization [facility] Address [address] [facility] [place] [address] [place] [address] Care Team Providers Care Script Supervisor Name Role Phone Jared Abrams MD Primary Care Provider [phone] Reason for Visit * Reason Onset Date Comments Medication 10/12/2021 Encounter Details Date Type Department Care Team (Late st Contact Info) Description 10/12/2021 Telephone [facility] Medical Group Multispecialty Care - [facility] [address] [facility], [address] [place] [id number] Corrina Muniz NP [address] [facility] [address] [place], [place] [id number] Medication Social History Tobacco Use Types Packs/Day [...] Coronavirus/COVID-19? No / Unsure 10/05/2021 9:27 AM NEUROSURGEON documented as of this encounter Functional Status [...] st Contact Info) Description 08/03/2024 2:00 PM NEUROSURGEON Appointment [facility] Day [facility] [address] [place] [address] Josué Cook MD [address] [address] documented as of this encounter Goals Goal Patient Goal Type Associated Problems Recent Progress Patient-Stated? Author HOME TO [facility] General No Vannessa Blackwell RN documented as of this encounter Visit Diagnoses Not on filedocumented in this encounter Additional Health Concerns Assessment Noted Time PHQ-9 Depression Total Score: 0 07/06/20 21 4:06 PM NEUROSURGEON documented as of this encounter Care Teams Script Supervisor Relationship Specialty Start Date End Date Jared Abrams MD PCP - General 08/28/11 07/16/22 documented as of this encounter
--- OUTSIDE RECORDS SUMMARY | 2024-07-15 17:16 | XMS_ITS | Encounter Summary ---
Author Organization [facility] Address [address] [facility] [place] [address] [place] [address] Care Team Providers Care Short Goods Drier Name Role Phone Jared Abrams MD Primary Care Provider [phone] Encounter Details Date Type Department Care Team (Latest Contact Info) Description 01/17/2022 9:48 AM CDT - 01/17/2022 11:59 PM CDT Hospital Encounter [facility] [address] [place] [address] Vladimir Parosns MD [address] [place] [id number] Discharge Disposition: Home or Self Care (Routine [...] 01/17/2022 9:50 AM CDT Call x1 [place] [facility] [place] to call the office for test results * Riri Robles LPN - 01/17/2022 9:50 AM CDT PT AWARE OF TEST RESULTS, MEDICATION AND FUTURE TESTING documented in this encounter Plan of Treatment Upcoming Encounters Date Type Department Care Team (Late st Contact Info) Description 08/03/2024 2:00 PM PRINCIPAL DATABASE DEVELOPER Appointment [address] [address] Josué Cook MD [address] [facility] [address] [place] [address] documented as of this encounter Goals Goal [...] NIL (TB) 0.02 01/22/2022 2:30 PM CDT [facility] MITOGEN NIL >10.00 01/22/2022 2:30 PM CDT [facility] TB1 AG MINUS NIL 0.01 01/22/2022 2:30 PM CDT [facility] TB2 AG MINUS NIL 0.01 01/22/2022 2:30 PM CDT [facility] 01/17/2022 9:57 AM CDT Vladimir Parsons MD LABORATORY Final Result [facility] [address] [place] [address], * HEPATITIS PANEL,ACUTE (01/17/2022 9:57 AM CDT) HEPATITIS B SURFACE AG NON-REACTI VE NON-REACTI VE 01/17/2022 3:46 PM CDT [facility] HEP B CORE IGM NON-REACTI VE NON-REACTI VE 01/17/2022 7:25 PM CDT [facility] HAV IGM NON-REACTI VE NON-REACTI VE 01/17/2022 4:06 PM CDT [facility] HEPATITIS C AB NON-REACTI VE NON-REACTI VE 01/17/2022 4:05 PM CDT [facility] 01/17/2022 9:57 AM CDT Vladimir Parsons MD LABORATORY Final Result [facility] [address] [place] [address], * TPMT ACTIVITY (01/17/2022 9:57 AM CDT) TPMT ACTIVITY 13 01/24/2022 12:46 AM CDT [facility] Comment: Units: ??nmol/hr/mL RBC Reference Range for TPMT Activity: ??>12 ? Normal 4-12 ? Heterozygote or low metabolizer ?? <4 ? Homozygote Deficient Range This test was developed and its analytical performance characteristics have been determined by [facility]. It has not been cleared or approved by FDA. This assay has been validated pursuant to the CLIA regulations and is used for clinical purposes. Test performed by [facility] ? [address] [facility], ? [place] [address] ? Cryptographic Clerk: Lillian Duong MD,PHD,JOVANY Test Reported by Sierra Nelson, [employer] [place], [address] [place], [place] Gamal Gao M.D., Ph.D., Director of Laboratories , [place] [id number] 01/17/2022 9:57 AM CDT us Vladimir Parsons MD LABORATORY Final Result Performing Organization Address City/State/[facility] Co de Phone Number [facility] [address] [place] [address], [place] [phone] documented in this encounter Visit Diagnoses Diagnosis UC (ulcerative colitis confined to rectum) ([facility]) Ulcerative (chronic) proctitis Diarrhea, unspecified type documented in this encounter Additional Health Concerns Assessment Noted Time PHQ-9 Depression Total Score: 0 07/06/20 21 4:06 PM PRINCIPAL DATABASE DEVELOPER documented as of this encounter Care Teams Short Goods Drier Relationship Specialty Start Date End Date Jared Abrams MD PCP - General 08/28/11 07/16/22 documented as of this encounter
--- OUTSIDE RECORDS SUMMARY | 2024-07-15 17:16 | XMS_ITS | Encounter Summary ---
Author Organization [facility] Address [address] [facility] [place] [address] [place] [address] Care Team Providers Care Geologic Technician Name Role Phone Jared Abrams MD Primary Care Provider [phone] Encounter Details Date Type Department Care Team [...] st Contact Info) Description 08/03/2024 2:00 PM RAILS DEVELOPER Appointment [address] [address] Josué Cook MD [address] [address] documented as of this encounter Goals Goal Patient Goal Type Associated Problems Recent Progress Patient-Stated? Author HOME TO [facility] General No Vannessa Blackwell RN documented as of this encounter Visit Diagnoses Not on filedocumented in this encounter Additional Health Concerns Assessment Noted Time PHQ-9 Depression Total Score: 0 07/06/20 21 4:06 PM RAILS DEVELOPER documented as of this encounter Care Teams Geologic Technician Relationship Specialty Start Date End Date Jared Abrams MD PCP - General 08/28/11 07/16/22 documented as of this encounter
--- OUTSIDE RECORDS SUMMARY | 2024-07-15 17:16 | XMS_ITS | Encounter Summary ---
Author Organization [facility] Address [address] [facility] [place] [address] [place] [address] Care Team Providers Care Microsoft Access Developer Name Role Phone Jared Abrams MD Primary Care Provider [phone] Servando Torre MD Primary Care Provider [phone] Encounter Details Date Type Department Care Team (Late st Contact Info) Description 06/18/2022 Therapy Plan [facility] [address] [place] [address] Mariela Denton MD [facility] S CLOVISA[address]elle [facility] [address] [place] [address] Social History Tobacco Use Types Packs/Day Years [...] Date Type Department Care Team (Late st [facility] Info) Description 08/03/2024 2:00 PM HORSE WRANGLER Appointment [facility] [address] [place] [address] Josué Cook MD [facility] [address] [address] documented as of this encounter Goals Goal Patient Goal Type Associated Problems Recent Progress Patient-Stated? Author HOME TO [facility]IV[facility] General No Vannessa Blackwell RN documented as of this encounter Visit Diagnoses Diagnosis Chronic ulcerative colitis, unspecified complication (CMS/HCC [facility])- Primary documented in this encounter Additional Health Concerns Assessment Noted Time PHQ-9 Depression Total Score: 0 07/06/20 21 4:06 PM HORSE WRANGLER documented as of this encounter Care Teams Microsoft Access Developer Relationship Specialty Start Date End Date Jared Abrams MD PCP - General 08/28/11 07/16/22 Servando Torre MD [address] [facility] [address] [place] [address] PCP - General FAMILY PRACTICE 07/17/22 documented as of this encounter
--- OUTSIDE RECORDS SUMMARY | 2024-07-15 17:16 | XMS_ITS | Encounter Summary ---
Author Organization [facility] Address [address] [facility] [place] [address] [place] [address] Care Team Providers Care District Associate Judge Name Role Phone Jared Abrams MD Primary Care Provider [phone] Reason for Visit * Reason Onset Date Comments Diarrhea 01/04/2022 Appointment Request 01/04/2022 Encounter Details Date Type Department Care Team (Late st Contact Info) Description 01/04/2022 Telephone [facility] Medical Group Multispecialty Care - [facility] [address] [facility], [address] [place] [address] Vladimir Parsons MD 3 [facility] [address] [place] [address] Diarrhea; Appointment Request Social History [...] give Pt a call back to discuss [phone] documented in this encounter Plan of Treatment Upcoming Encounters Date Type Department Care Team (Late st Contact Info) Description 08/03/2024 2:00 PM PAINTER SIGN MAINTENANCE Appointment [address] [address] Josué Cook MD [address] [address] documented as of this encounter Goals Goal Patient Goal Type Associated Problems Recent Progress Patient-Stated? Author HOME TO [facility]IV[facility] General Vannessa Light, ELMO documented as of this encounter Visit Diagnoses Not on filedocumented in this encounter Additional Health Concerns Assessment Noted Time PHQ-9 Depression Total Score: 0 07/06/20 21 4:06 PM PAINTER SIGN MAINTENANCE documented as of this encounter Care Teams District Associate Judge Relationship Specialty Start Date End Date Jared Abrams MD PCP - General 08/28/11 07/16/22 documented as of this encounter
--- OUTSIDE RECORDS SUMMARY | 2024-07-15 17:16 | XMS_ITS | Encounter Summary ---
Author Organization [facility] Address [address] [facility] [place] [address] [place] [address] Care Team Providers Care Equal Opportunity Representative Name Role Phone Jared Abrams MD Primary Care Provider [phone] Encounter Details Date Type Department Care Team [...] Contact Info) Description 08/03/2024 2:00 PM MEDICAL DEVICE SALES Appointment [address] [address] Josué Cook MD [address] [address] documented as of this encounter Goals Goal Patient Goal Type Associated Problems Recent Progress Patient-Stated? Author HOME TO [facility]IV[facility] General No Vannessa Blackwell RN documented as of this encounter Visit Diagnoses Not on filedocumented in this encounter Additional Health Concerns Assessment Noted Time PHQ-9 Depression Total Score: 0 07/06/20 21 4:06 PM MEDICAL DEVICE SALES documented as of this encounter Care Teams Equal Opportunity Representative Relationship Specialty Start Date End Date Jared bArams MD PCP - General 08/28/11 07/16/22 documented as of this encounter
--- OUTSIDE RECORDS SUMMARY | 2024-07-15 17:16 | XMS_ITS | Encounter Summary ---
Author Organization [facility] Address [address] [facility] [place] [address] [place] [address] Care Team Providers Care Maintenance Service Technician Name Role Phone Jared Abrams MD Primary Care Provider [phone] Encounter Details Date Type Department Care Team (Late st Contact Info) Description 10/05/2021 Medication Management [facility] Medical Group Multispecialty Care - [facility] [address] [facility] [place] [address] Vladimir Parsons MD [address] [place] [address] [address] [place] [address] Social History Tobacco Use Types Packs/Day Years [...] Coronavirus/COVID-19? No / Unsure 10/05/2021 9:27 AM ASTROPHYSICS TEACHER documented as of this encounter Functional Status [...] st Contact Info) Description 08/03/2024 2:00 PM ASTROPHYSICS TEACHER Appointment [facility] [address] [place] [address] Josué Cook MD [address] [address] documented as of this encounter Goals Goal Patient Goal Type Associated Problems Recent Progress Patient-Stated? Author HOME TO [facility] No Vannessa Blackwell RN documented as of this encounter Visit Diagnoses Diagnosis Ulcerative pancolitis without complication ([facility]/HCC [facility]) documented in this encounter Additional Health Concerns Assessment Noted Time PHQ-9 Depression Total Score: 0 07/06/20 21 4:06 PM ASTROPHYSICS TEACHER documented as of this encounter Care Teams Maintenance Service Technician Relationship Specialty Start Date End Date Jared Abrams MD PCP - General 08/28/11 07/16/22 documented as of this encounter
--- OUTSIDE RECORDS SUMMARY | 2024-07-15 17:16 | XMS_ITS | Encounter Summary ---
Author Organization [facility] Address [address] [facility] [place] [address] [place] [address] Care Team Providers Care Water Main Inspector Name Role Phone Jared Abrams MD Primary Care Provider [phone] Reason for Visit * Auth/Cert Specialty Diagnoses / Procedures Referred By Angel braswell Referred To Contact Diagnoses Ulcerative pancolitis without complication ([facility] HHS/HCC) Ulcerative colitis with complication, unspecified location ([facility]) Ulcerative pancolitis Procedures SIGMOIDOSCOPY,DIAGNOSTIC SIGMOIDOSCOPY Referral ID Status Reason Start Date Expiration Date Visits Re quested Visits Authorized [id number] 1 1 Encounter Details Date Type Department Care Team (Late st Contact Info) Description 10/05/2021 10:15 AM OIL BURNER - 10/05/2021 10:36 AM OIL BURNER Surgery [facility] [address] [place] [address] Indigo Parsons MD [address] [place] [address] Sigmoidoscopy w/ Biopsy Surgery Details Date/Time Status [...] Coronavirus/COVID-19? No / Unsure 10/05/2021 9:27 AM OIL BURNER documented as of this encounter Last Filed Vital Signs Vital Sign Reading Time Taken Comments Blood Pressure 145/61 10/05/2021 9:49 AM OIL BURNER Pulse 63 10/05/2021 9:49 AM OIL BURNER Temperature 37.4 ??C (99.3 ??F) 10/05/2021 9:49 AM CS T Respiratory Rate 20 10/05/2021 9:49 AM OIL BURNER Oxygen Saturation 97% 10/05/2021 9:49 AM OIL BURNER Inhaled Oxygen Concentration - - Weight 72.6 kg (160 lb) 10/05/2021 9:49 AM OIL BURNER Height 157.5 cm (5' 2 ) 10/05/2021 9:49 AM OIL BURNER Body Mass Index 29.26 10/05/2021 9:49 AM OIL BURNER documented in this encounter Functional Status * [...] Ivett Moreno RN - 10/05/2021 11:52 AM OIL BURNER Images from the original note were not [...] bloody stools. Where can I learn more? [employer] [employer] https://familydoctor.org/condition/zdqntodpstxc-kqwpr-rxiuduc-ibd/ NHS Choices https://www.nhs.uk/conditions/ulcerative-colitis/ Last Reviewed Date 2021-05-01 [...] by the Terms of Use, available at https://www.[employer]/en/solutions/lexicomp/about/alvaro Copyright Copyright ?? 2020 [employer]. and its affiliates and/or licensors. All rights reserved. BURNER * Attachments The following attachments cannot be sent through Care Everywhere. * Flexible Sigmoidoscopy (Tajik) documented in this encounter Medications at Time [...] biopsies performed by Indigo Parsons MD at [facility] OR ??? PARTIAL HIP REPLACEMENT Left [...] INDIGO PARSONS MD Voice recognition software utilized BURNER documented in this encounter OR Notes * Op Note - Indigo Parsons MD - 10/05/2021 11:38 AM CST [facility] OpNote Sigmoidoscopy w/ Biopsy Procedure Note Radha Allen 10/05/2021 1015 Procedure(s) (LRB): Sigmoidoscopy w/ Biopsy (N/A) Surgeon(s): Indigo Parsons MD Staff: Circulating Nurse 1: Irais Ocasio RN Scrub Person 1: Jody Francisco, DEPARTMENT SALES MANAGER Anesthesia: Local No anesthesia staff entered. Pre-Op [...] Time: 11:38 AM Voice recognition software utilized. BURNER documented in this encounter Plan of Treatment Upcoming Encounters Date Type Department Care Team (Late st Contact Info) Description 08/03/2024 2:00 PM OIL BURNER Appointment [address] [address] Josué Cook MD [address] [address] documented as of this encounter Goals Goal Patient Goal Type Associated Problems Recent Progress Patient-Stated? Author HOME TO [facility] Vannessa Light RN documented as of this encounter Procedures Procedure Name Priority Date/Time Associated Diagnosis Comments SIGMOIDOSCOPY,FELICIANO GNOSTIC 10/05/2021 11:30 AM OIL BURNER Ulcerative pancolitis without complication ([facility]/HCC) Ulcerative colitis with complication, unspecified location ([facility]) Special Needs 1000 PATHOLOGY Routine 10/05/2021 12:00 AM OIL BURNER documented in this encounter Results * Pathology (10/05/2021 12:00 AM OIL BURNER) PATHOLOGY [facility] ? Department of Laboratory Medicine ?[address] ?[place] [address] ? , extension [phone] ? Pathology Report ? Surgical Pathology Report Name: RADHA ALLEN ? Specimen #: [id number] Age: 8 1945 (Age: 76) ?Location: [facility] Sex: F ?Procedure Date: 10/05/2021 Hospital #: [id number] ?Date Received: 10/08/2021 Date Reported: 10/09/2021 Provider: [...] interpretation and sign-out were performed at [facility], [address] [place], [place], [address]. FINAL DIAGNOSIS: COLON, LEFT, BIOPSIES: ? - MODERATELY ACTIVE CHRONIC COLITIS. ? - NO GRANULOMAS OR DYSPLASIA. Electronically Signed Out ? NICOLA DAVILA MD [facility] Tissue specimen (specimen) COLON STRUCTURE / Unknown 10/05/2021 11:36 AM OIL BURNER us Indigo Parsons MD PATHOLOGY/CYTOLOGY ORDERABLES Fi nal Result [facility] [address] [place] [address], [id number] documented in this encounter Visit Diagnoses Diagnosis [...] Total Score: 0 07/06/20 21 4:06 PM OIL BURNER documented as of this encounter Care Teams Water Main Inspector Relationship Specialty Start Date End Date Jared Abrams MD PCP - General 08/28/11 07/16/22 documented as of this encounter
--- OUTSIDE RECORDS SUMMARY | 2024-07-15 17:16 | XMS_ITS | Encounter Summary ---
Author Organization [facility] Address [address] [place] [address] [place] [address] Care Team Providers Care Meat Smoker Name Role Phone Jared Abrams MD Primary Care Provider [phone] Encounter Details Date Type Department Care Team [...] st Contact Info) Description 08/03/2024 2:00 PM REGULATORY COORDINATOR Appointment [address] [address] Josué Cook MD [address] [address] documented as of this encounter Goals Goal Patient Goal Type Associated Problems Recent Progress Patient-Stated? Author HOME TO INDEPENDENT LIVING General No Vannessa Blackwell RN documented as of this encounter Visit Diagnoses Not on filedocumented in this encounter Additional Health Concerns Assessment Noted Time PHQ-9 Depression Total Score: 0 07/06/20 21 4:06 PM REGULATORY COORDINATOR documented as of this encounter Care Teams Meat Smoker Relationship Specialty Start Date End Date Jared Abrams MD PCP - General 08/28/11 07/16/22 documented as of this encounter
--- OUTSIDE RECORDS SUMMARY | 2024-07-15 17:16 | XMS_ITS | Encounter Summary ---
Author Organization [facility] Address [address] [facility] [place] [address] [place] [address] Care Team Providers Care Truer Pinion And Wheel Name Role Phone Jared Abrams MD Primary Care Provider [phone] Encounter Details Date Type Department Care Team (Late st Contact Info) Description 01/24/2022 Medication Management [facility] Medical Group Multispecialty Care - [facility] [address] [facility] [place] [id number] Vladimir Parsons MD [address] [place] [address] [address] [place] [address] Social History Tobacco Use Types Packs/Day Years [...] st Contact Info) Description 08/03/2024 2:00 PM DRAPERY HEAD FORMER Appointment [facility] [address] [place] [address] Josué Cook MD [address] [address] documented as of this encounter Goals Goal Patient Goal Type Associated Problems Recent Progress Patient-Stated? Author HOME TO [facility] No Vannessa Blackwell RN documented as of this encounter Visit Diagnoses Diagnosis Ulcerative colitis with complication, unspecified location ([facility]/HCC [facility])- Primary documented in this encounter Additional Health Concerns Assessment Noted Time PHQ-9 Depression Total Score: 0 07/06/20 21 4:06 PM DRAPERY HEAD FORMER documented as of this encounter Care Teams Truer Pinion And Wheel Relationship Specialty Start Date End Date Jared Abrams MD PCP - General 08/28/11 07/16/22 documented as of this encounter
--- OUTSIDE RECORDS SUMMARY | 2024-07-15 17:17 | XMS_ITS | Encounter Summary ---
Author Organization [facility] Address [address] [facility] [address] [place] [address] Care Team Providers Care Public Address Systems Mechanic Name Role Phone Jared Abrams MD Primary Care Provider [phone] Encounter Details Date Type Department Care Team (Late st Contact Info) Description 09/04/2021 Orders Only [facility] Medical Group Multispecialty Care - [address] [place] [phone] Vladimir Parsons MD 3 [facility] [address] [place] [address] Social History Tobacco Use Types Packs/Day Years [...] with patient procedure scheduled for 09/21/2021 at [facility]. Flex sig instructions mailed to pt. HOUSE ATTENDANT documented in this encounter Plan of Treatment Upcoming Encounters Date Type Department Care Team (Late st Contact Info) Description 08/03/2024 2:00 PM FUEL HOUSE ATTENDANT [facility]ointment [facility] [address] [place], [place] [id number] Josué Cook MD [address] [facility] 8 [place] [address] documented as of this encounter Goals Goal Patient Goal Type Associated Problems Recent Progress Patient-Stated? Author HOME TO [facility] General No Vannessa Blackwell RN documented as of this encounter Visit Diagnoses Not on filedocumented in this encounter Additional Health Concerns Assessment Noted Time PHQ-9 Depression Total Score: 0 07/06/20 21 4:06 PM FUEL HOUSE ATTENDANT documented as of this encounter Care Teams Public Address Systems Mechanic Relationship Specialty Start Date End Date Jared Abrams MD PCP - General 08/28/11 07/16/22 documented as of this encounter
--- OUTSIDE RECORDS SUMMARY | 2024-07-15 17:17 | XMS_ITS | Encounter Summary ---
Author Organization [facility] Address [address] [facility] [place] [address] [place] [address] Care Team Providers Care Line Maintainer Section Name Role Phone Jared Abrams MD Primary Care Provider [phone] Encounter Details Date Type Department Care Team (Late st Contact Info) Description 07/10/2021 Orders Only [facility] Medical Group Multispecialty Care - [facility] [address] [facility] [place] [address] Vladimir Parsons MD 3 [facility] [address] [place] [address] Social History Tobacco Use Types Packs/Day Years [...] COVID-19? No / Unsure 07/06/2021 2:18 PM LINING MAKER HAND documented as of this encounter Functional [...] st Contact Info) Description 08/03/2024 2:00 PM LINING MAKER HAND Appointment [facility] [address] [place] [address] Josué Cook MD [address] [address] documented as of this encounter Goals Goal Patient Goal Type Associated Problems Recent Progress Patient-Stated? Author HOME TO [facility] No Vannessa Blackwell RN documented as of this encounter Visit Diagnoses Diagnosis Ulcerative colitis with complication, unspecified location ([facility])- Primary documented in this encounter Additional Health Concerns Assessment Noted Time PHQ-9 Depression Total Score: 0 07/06/20 21 4:06 PM LINING MAKER HAND documented as of this encounter Care Teams Line Maintainer Section Relationship Specialty Start Date End Date Jared Abrams MD PCP - General 08/28/11 07/16/22 documented as of this encounter
--- OUTSIDE RECORDS SUMMARY | 2024-07-15 17:17 | XMS_ITS | Encounter Summary ---
Author Organization [facility] Address [address] [facility] [place] [address] [place] [address] Care Team Providers Care Technical Illustrator Name Role Phone Jared Abrams MD Primary Care Provider [phone] Reason for Visit * Reason Onset Date Comments Medication 08/24/2021 Encounter Details Date Type Department Care Team (Late st Contact Info) Description 08/24/2021 Telephone [facility] Medical Group Multispecialty Care - [facility] [address] [facility], [address] [place] [address] Vladimir Parsons MD 3 [facility] [address] [place], [place] [id number] Medication Social History Tobacco Use Types Packs/Day [...] a few times phone line was busy. IMEN TECHNICIAN * Riri Maldonado - 09/03/2021 1:02 PM CST Patient is calling Kimberley back. Call patient at [phone]. IMEN TECHNICIAN * Kimberley Pang - 09/03/2021 11:26 AM CST Spoke with patient's daughter Aby message given. She will talk with her mom about rescheduling Flex-sig and call the office back. IMEN TECHNICIAN * Kimberley Pang - 08/31/2021 9:27 AM CST LVM for pt to give the office a call back. IMEN TECHNICIAN * Corrina Muniz NP - 08/28/2021 4:13 [...] make her more vulnerable to many conditions. IMEN TECHNICIAN * Kimberley Pang - 08/28/2021 3:51 PM CST Spoke with patient's daughter patient was prescribed anti diarrhea medication by her pcp. She askedif Dr. Parsons would like her to take that medication? Patient was seen [facility] was diagnosedwith suspected Pseudogout. She asked if her ulcerative colitis caused it and how could it be avoided? IMEN TECHNICIAN * Kimberley Pang - 08/27/2021 2:44 PM CST Returned patient's daughter call left a voicemail message. IMEN TECHNICIAN * Rhonda Hopkins - 08/24/2021 9:38 AM CST Lisa's daughter called with some information and a question. Daughter stated that Lisa has been having diarrhea and on 08/09 her PCP prescribed her a medication that is contradicting to Lias's condition. Please follow up with daughter at [phone] to discuss and advise. IMEN TECHNICIAN documented in this encounter Plan of Treatment Upcoming Encounters Date Type Department Care Team (Late st Contact Info) Description 08/03/2024 2:00 PM SPECIMEN TECHNICIAN Appointment [facility] One Day [facility] [address] [place] [address] Josué Cook MD [address] [facility] 8 [place] [address] documented as of this encounter Goals Goal Patient Goal Type Associated Problems Recent Progress Patient-Stated? Author HOME TO [facility] General Vannessa Light RN documented as of this encounter Visit Diagnoses Not on filedocumented in this encounter Additional Health Concerns Assessment Noted Time PHQ-9 Depression Total Score: 0 07/06/20 21 4:06 PM SPECIMEN TECHNICIAN documented as of this encounter Care Teams Technical Illustrator Relationship Specialty Start Date End Date Jared Abrams MD PCP - General 08/28/11 07/16/22 documented as of this encounter
--- OUTSIDE RECORDS SUMMARY | 2024-07-15 17:17 | XMS_ITS | Encounter Summary ---
Author Organization [facility] Address [address] [place] [address] [place] [address] Care Team Providers Care Field Sales Executive Name Role Phone Jared Abrams MD Primary Care Provider [phone] Reason for Visit * Reason Onset Date Comments Reschedule 07/12/2021 Encounter Details Date Type Department Care Team (Late st Contact Info) Description 07/12/2021 Telephone [facility] Medical Group Multispecialty Care - [facility] [address] [facility] [place] [address] Vladimir Parsons MD 3 [facility] [address] [place] [address] Reschedule Social History Tobacco Use Types Packs/Day [...] COVID-19? No / Unsure 07/06/2021 2:[address] LIGHT documented as of this encounter Functional Status [...] the office a call to reschedule procedure. CLEANER STREET LIGHT * Kimberley Pang - 07/12/2021 2:01 PM CST ----- Message from Ivett Moreno RN sent at 07/12/2021 9:[address] LIGHT ----- ----- Message from Ivett Moreno RN sent at 07/12/2021 9:[address] LIGHT ----- Patient needs to be rescheduled. She fell at home and has a sore coccyx. CLEANER STREET LIGHT documented in this encounter Plan of Treatment Upcoming Encounters Date Type Department Care Team (Late st Contact Info) Description 08/03/2024 2:[address] LIGHT Appointment [facility] Day [facility] [address] [place] [address] Josué Cook MD [address] [facility] 8 [place] [address] documented as of this encounter Goals Goal Patient Goal Type Associated Problems Recent Progress Patient-Stated? Author HOME TO [facility] General Vannessa Light RN documented as of this encounter Visit Diagnoses Not on filedocumented in this encounter Additional Health Concerns Assessment Noted Time PHQ-9 Depression Total Score: 0 07/06/20 21 4:[address] LIGHT documented as of this encounter Care Teams Field Sales Executive Relationship Specialty Start Date End Date Jared Abrams MD PCP - General 08/28/11 07/16/22 documented as of this encounter
--- OUTSIDE RECORDS SUMMARY | 2024-07-15 17:17 | XMS_ITS | Encounter Summary ---
Author Organization [facility] Address [address] [facility] [place] [address] [place] [address] Care Team Providers Care Kosher Sealer Name Role Phone Jared Abrams MD Primary Care Provider [phone] Reason for Visit * Reason Onset Date Comments Prior Authorization 07/12/2021 Encounter Details Date Type Department Care Team (Late st Contact Info) Description 07/12/2021 Telephone [facility] Medical Group Multispecialty Care - [facility] 3 [facility], [address] [place] [address] Vladimir Parsons MD 3 [facility] [address] [place] [address] Prior Authorization Social History Tobacco Use Types [...] COVID-19? No / Unsure 07/06/2021 2:18 PM DESKIDDING MACHINE OPERATOR documented as of this encounter Functional [...] auth for sigmoidoscopy is not required. Ref# [id number] IDDING MACHINE OPERATOR documented in this encounter Plan of Treatment Upcoming Encounters Date Type Department Care Team (Late st Contact Info) Description 08/03/2024 2:00 PM DESKIDDING MACHINE OPERATOR Appointment [facility] [id number] [place] [address] Josué Cook MD [address] [facility] [address] [place] [address] documented as of this encounter Goals Goal Patient Goal Type Associated Problems Recent Progress Patient-Stated? Author HOME TO [facility] General Vannessa Light RN documented as of this encounter Visit Diagnoses Not on filedocumented in this encounter Additional Health Concerns Assessment Noted Time PHQ-9 Depression Total Score: 0 07/06/20 21 4:06 PM DESKIDDING MACHINE OPERATOR documented as of this encounter Care Teams Kosher Sealer Relationship Specialty Start Date End Date Jared Abrams MD PCP - General 08/28/11 07/16/22 documented as of this encounter
--- OUTSIDE RECORDS SUMMARY | 2024-07-15 17:17 | XMS_ITS | Encounter Summary ---
Author Organization [facility] Address [address] [facility] [place] [address] [place] [address] Care Team Providers Care Edge Dyer Name Role Phone Jared Abrams MD Primary Care Provider [phone] Reason for Visit * Reason Onset Date Comments Appointment Request 07/12/2021 Encounter Details Date Type Department Care Team (Late st Contact Info) Description 07/12/2021 Telephone [facility] [address] [place], [place] [phone] Vladimir Parsons MD [address] [place] [address] Appointment Request Social History Tobacco Use [...] COVID-19? No / Unsure 07/06/2021 2:18 PM TEXTILE SCREEN MAKER documented as of this encounter Functional Status [...] st Contact Info) Description 08/03/2024 2:00 PM TEXTILE SCREEN MAKER Appointment [facility] [address] [place] [address] Josué Cook MD [address] [address] documented as of this encounter Goals Goal Patient Goal Type Associated Problems Recent Progress Patient-Stated? Author HOME TO [facility]IV[facility] No Vannessa Blackwell RN documented as of this encounter Visit Diagnoses Not on filedocumented in this encounter Additional Health Concerns Assessment Noted Time PHQ-9 Depression Total Score: 0 07/06/20 21 4:06 PM TEXTILE SCREEN MAKER documented as of this encounter Care Teams Edge Dyer Relationship Specialty Start Date End Date Jared Abrams MD PCP - General 08/28/11 07/16/22 documented as of this encounter
--- OUTSIDE RECORDS SUMMARY | 2024-07-15 17:17 | XMS_ITS | Encounter Summary ---
Author Organization [facility] Address [address] [facility] [place] [address] [place] [address] Care Team Providers Care Area Loss Prevention Manager Name Role Phone Jared Abrams MD Primary Care Provider [phone] Encounter Details Date Type Department Care Team (Late st Contact Info) Description 09/04/2021 Orders Only [facility] Medical Group Multispecialty Care - [address] [place] [address] Vladimir Parsons MD 3 [facility] [address] [place] [address] Social History Tobacco Use Types Packs/Day Years [...] st Contact Info) Description 08/03/2024 2:00 PM SENIOR ENGINEERING MANAGER Appointment [facility] [address] [place] [address] Josué Cook MD [address] [address] documented as of this encounter Goals Goal Patient Goal Type Associated Problems Recent Progress Patient-Stated? Author HOME TO [facility] General No Vannessa Blackwell RN documented as of this encounter Visit Diagnoses Diagnosis Ulcerative pancolitis without complication (CMS/HCC [facility]/HCC)- Primary documented in this encounter Additional Health Concerns Assessment Noted Time PHQ-9 Depression Total Score: 0 07/06/20 21 4:06 PM SENIOR ENGINEERING MANAGER documented as of this encounter Care Teams Area Loss Prevention Manager Relationship Specialty Start Date End Date Jared Abrams MD PCP - General 08/28/11 07/16/22 documented as of this encounter
--- OUTSIDE RECORDS SUMMARY | 2024-07-15 17:17 | XMS_ITS | Encounter Summary ---
Author Organization [facility] Address [address] [facility] [place] [address] [place] [address] Care Team Providers Care Machine Filler Shredder Name Role Phone Jared Abrams MD Primary Care Provider [phone] Reason for Visit * Reason Onset Date Comments Called To Cancel Office Appt. 07/12/2021 Encounter Details Date Type Department Care Team (Late st Contact Info) Description 07/12/2021 Telephone [facility] Medical Group Multispecialty Care - [facility] 3 [facility], [address] [place] [phone] Vladimir Parsons MD 3 [facility] [address] [place], [place] [phone] Called To Cancel Office Appt. Social History [...] COVID-19? No / Unsure 07/06/2021 2:18 PM PRODUCTION ASSEMBLY OPERATOR documented as of this encounter Functional [...] No follow up needed at this time. UCTION ASSEMBLY OPERATOR documented in this encounter Plan of Treatment Upcoming Encounters Date Type Department Care Team (Late st Contact Info) Description 08/03/2024 2:00 PM PRODUCTION ASSEMBLY OPERATOR Appointment [facility] [address] [place] [address] Josué Cook MD [address] [facility] 8 [place] [address] documented as of this encounter Goals Goal Patient Goal Type Associated Problems Recent Progress Patient-Stated? Author HOME TO [facility] No Vannessa Blackwell RN documented as of this encounter Visit Diagnoses Not on filedocumented in this encounter Additional Health Concerns Assessment Noted Time PHQ-9 Depression Total Score: 0 07/06/20 21 4:06 PM PRODUCTION ASSEMBLY OPERATOR documented as of this encounter Care Teams Machine Filler Shredder Relationship Specialty Start Date End Date Jared Abrams MD PCP - General 08/28/11 07/16/22 documented as of this encounter
--- OUTSIDE RECORDS SUMMARY | 2024-07-15 17:17 | XMS_ITS | Encounter Summary ---
Author Organization [facility] Address [address] [facility] [place] [address] [place] [address] Care Team Providers Care Electrician Deck Name Role Phone Jared Abrams MD Primary Care Provider [phone] Reason for Visit * Reason Onset Date Comments Reschedule 09/20/2021 Encounter Details Date Type Department Care Team (Late st Contact Info) Description 09/20/2021 Telephone [facility] Medical Group Multispecialty Care - [facility] 3 [facility], [address] [place] [address] Vladimir Parsons MD 3 [facility] [address] [place] [address] Reschedule Social History Tobacco Use Types Packs/Day [...] patient procedure rescheduled to 10/05/2021. Hospital informed. OND POWDER TECHNICIAN * Laya Gaxiola - 09/20/2021 2:18 PM CST Pt called and stated that she contacted [facility] to cancel her colonoscopy with . Please give pt acall back to reschedule [phone] OND POWDER TECHNICIAN * Kiersten Lanier - 09/20/2021 7:42 AM CST Lisa called today needing to reschedule her surgery tomorrow because of her not feeling well please call to discuss OND POWDER TECHNICIAN documented in this encounter Plan of Treatment Upcoming Encounters Date Type Department Care Team (Late st Contact Info) Description 08/03/2024 2:00 PM DIAMOND POWDER TECHNICIAN Appointment [facility] [address] [place] [address] Josué Cook MD [address] [address] documented as of this encounter Goals Goal Patient Goal Type Associated Problems Recent Progress Patient-Stated? Author HOME TO [facility] General No Vannessa Blackwell RN documented as of this encounter Visit Diagnoses Not on filedocumented in this encounter Additional Health Concerns Assessment Noted Time PHQ-9 Depression Total Score: 0 07/06/20 21 4:06 PM DIAMOND POWDER TECHNICIAN documented as of this encounter Care Teams Electrician Deck Relationship Specialty Start Date End Date Jared Abrams MD PCP - General 08/28/11 07/16/22 documented as of this encounter
--- OUTSIDE RECORDS SUMMARY | 2024-07-15 17:17 | XMS_ITS | Encounter Summary ---
Author Organization [facility] Address [address] [facility] [place] [address] [place] [address] Care Team Providers Care Production Dispatcher Name Role Phone Jared Abrams MD Primary Care Provider [phone] Reason for Referral * Surgical (Routine) - Closed Specialty Diagnoses / Procedures Referred By Angel braswell Referred To Contact Diagnoses Ulcerative pancolitis without complication ([facility]) Ulcerative colitis with complication, unspecified location ([facility]) Procedures Case request operating room: SIGMOIDOSCOPY DX WITH BRUSH/WASH Vladimir Parsons MD [address] [place] [address] [place] [address] Phone: tel: fax: Referral ID Status Reason Start Date Expiration Date Visits Re quested Visits Authorized [id number] Closed 09/21/2021 10/19/2022 1 1 F MIDWIFE Encounter Details Date Type Department Care Team (Late st Contact Info) Description 09/21/2021 Orders Only [facility] Medical Group Multispecialty Care - [address] [place] [address] Vladimir Parsons MD [address] [place] [address] [address] [place], [place] [phone] Social History Tobacco Use Types Packs/Day Years [...] st Contact Info) Description 08/03/2024 2:00 PM STAFF MIDWIFE Appointment [facility] [address] [place] [address] Josué Cook MD [address] [facility] 8 [place] [address] Scheduled Orders Name Type Priority Associated Diagnoses Orde r Schedule Case request operating room: SIGMOIDOSCOPY DX WITH BRUSH/WASH Case Request Routine Ulcerative pancolitis without complication ([facility]) Ulcerative colitis with complication, unspecified location ([facility]) Expected: 09/28/2021, Expires: 09/21/2022 documented as of this encounter Goals Goal Patient Goal Type Associated Problems Recent Progress Patient-Stated? Author [facility] General Vannessa Light RN documented as of this encounter Visit Diagnoses Diagnosis Ulcerative pancolitis without complication ([facility])- Primary Ulcerative colitis with complication, unspecified location ([facility]) documented in this encounter Additional Health Concerns Assessment Noted Time PHQ-9 Depression Total Score: 0 07/06/20 21 4:06 PM STAFF MIDWIFE documented as of this encounter Care Teams Production Dispatcher Relationship Specialty Start Date End Date Jared Abrams MD PCP - General 08/28/11 07/16/22 documented as of this encounter
--- OUTSIDE RECORDS SUMMARY | 2024-07-15 17:18 | XMS_ITS | Encounter Summary ---
Author Organization [facility] Address [address] [facility] [place] [place] [address] [place] [address] Care Team Providers Care Flower Arranger Name Role Phone Jared Abrams MD Primary Care Provider [phone] Encounter Details Date Type Department Care Team [...] COVID-19? No / Unsure 07/07/2020 3:04 PM SYSTEMS ENGINEER documented as of this encounter Functional [...] Date Type Department Care Team (Late st [facility]) Description 08/03/2024 2:00 PM SYSTEMS ENGINEER Appointment [facility] [id number] [place] [address] Josué Cook MD [address] [address] documented as of this encounter Goals Goal Patient Goal Type Associated Problems Recent Progress Patient-Stated? Author HOME TO [facility] General No Vannessa Blackwell RN documented as of this encounter Visit Diagnoses Not on filedocumented in this encounter Care Teams Flower Arranger Relationship Specialty Start Date End Date Jared Abrams MD PCP - General 08/28/11 07/16/22 documented as of this encounter
--- OUTSIDE RECORDS SUMMARY | 2024-07-15 17:18 | XMS_ITS | Encounter Summary ---
Author Organization [facility] Address [address] [place] [address] [place] [address] Care Team Providers Care Pulp Machine Operator Name Role Phone Jared Abrams MD Primary Care Provider Reason for Visit * Reason Comments Follow Up uc * Consultation/Treatment (Routine) - Closed Specialty Diagnoses / Procedures Referred By Angel braswell Referred To Contact GASTROENTEROLOGY Diagnoses FU Procedures FOLLOW UP Jared Abrams MD [address] [place] [address] Phone: tel: fax: Vladimir Parsons MD [address] [place] [address] Phone: tel: fax: Referral ID Status Reason Start Date Expiration Date Visits Re quested Visits Authorized [id number] Closed 11/16/2020 07/06/2022 100 100 Encounter Details Date Type Department Care Team (Late st Contact Info) Description 07/06/2021 2:40 PM CERTIFIED FORKLIFT OPERATOR Office Visit [facility] [address] [address] Vladimir Parsons MD [address] [place] [address] Follow Up (uc) Social History Tobacco [...] COVID-19? No / Unsure 07/06/2021 2:18 PM CERTIFIED FORKLIFT OPERATOR documented as of this encounter Last Filed Vital Signs Vital Sign Reading Time Taken Comments Blood Pressure 136/84 07/06/2021 3:14 PM CERTIFIED FORKLIFT OPERATOR Pulse 72 07/06/2021 3:14 PM CERTIFIED FORKLIFT OPERATOR Temperature 36.2 ??C (97.2 ??F) 07/06/2021 3:14 PM CS T Respiratory Rate - - Oxygen Saturation 95% 07/06/2021 3:14 PM CERTIFIED FORKLIFT OPERATOR Inhaled Oxygen Concentration - - Weight 76.2 kg (168 lb) 07/06/2021 3:14 PM CERTIFIED FORKLIFT OPERATOR Height 154.9 cm (5' 1 ) 07/06/2021 3:14 PM CERTIFIED FORKLIFT OPERATOR Body Mass Index 31.74 07/06/2021 3:14 PM CERTIFIED FORKLIFT OPERATOR documented in this encounter Functional Status * [...] PARSONS MD 07/07/2021 Voice recognition software utilized IFIED FORKLIFT OPERATOR documented in this encounter Plan of Treatment Upcoming Encounters Date Type Department Care Team (Late st Contact Info) Description 08/03/2024 2:00 PM CERTIFIED FORKLIFT OPERATOR Appointment [facility] [address] [place] [address] Josué Cook MD [address] [facility] 8 [place] [address] documented as of this encounter Goals Goal Patient Goal Type Associated Problems Recent Progress Patient-Stated? Author HOME TO [facility] General No Vannessa Blackwell RN documented as of this encounter Visit Diagnoses Diagnosis Ulcerative pancolitis without complication (CMS/HCC HHS/HCC)- Primary documented in this encounter Additional Health Concerns Assessment Noted Time PHQ-9 Depression Total Score: 0 07/06/20 21 4:06 PM CERTIFIED FORKLIFT OPERATOR documented as of this encounter Care Teams Pulp Machine Operator Relationship Specialty Start Date End Date Jared Abrams MD PCP - General 08/28/11 07/16/22 documented as of this encounter
--- OUTSIDE RECORDS SUMMARY | 2024-07-15 17:18 | XMS_ITS | Encounter Summary ---
Author Organization [facility] Address [address] [facility] [place] [address] [place] [address] Care Team Providers Care Extractor Operator Helper Name Role Phone Jared Abrams MD Primary Care Provider [phone] Reason for Visit * Reason Onset Date Comments Hospital Follow Up 03/24/2020 Encounter Details Date Type Department Care Team (Late st Contact Info) Description 03/24/2020 Telephone [facility] Med/Surg [address] [place] [address] Rhonda Garber, RN Hospital Follow Up Social [...] (Late Contact Info) Description 08/03/2024 2:00 PM MEMORIAL COUNSELOR Appointment [facility] [address] [place] [address] Josué Cook MD 4921 [facility] 8 [place] [address] documented as of this encounter Goals Goal Patient Goal Type Associated Problems Recent Progress Patient-Stated? Author [facility] General No Vannessa Blackwell RN documented as of this encounter Visit Diagnoses Not on filedocumented in this encounter Care Teams Extractor Operator Helper Relationship Specialty Start Date End Date Jared Abrams MD PCP - General 08/28/11 07/16/22 documented as of this encounter
--- OUTSIDE RECORDS SUMMARY | 2024-07-15 17:18 | XMS_ITS | Encounter Summary ---
Author Organization [facility] Address [address] [facility] [place] [address] [place] [address] Care Team Providers Care Lockstitch Back Maker Name Role Phone Jared Abrams MD Primary Care Provider [phone] Encounter Details Date Type Department Care Team [...] Type Department Care Team (Late st [facility]) Description 08/03/2024 2:00 PM CARD ROOM MANAGER Appointment [facility] [id number] [place] [address] Josué Cook MD [address] [address] documented as of this encounter Goals Goal Patient Goal Type Associated Problems Recent Progress Patient-Stated? Author [facility] General No Vannessa Blackwell RN documented as of this encounter Visit Diagnoses Not on filedocumented in this encounter Care Teams Lockstitch Back Maker Relationship Specialty Start Date End Date Jared Abrams MD PCP - General 08/28/11 07/16/22 documented as of this encounter
--- OUTSIDE RECORDS SUMMARY | 2024-07-15 17:18 | XMS_ITS | Encounter Summary ---
Author Organization [facility] Address [address] [place] [address] [place] [address] Care Team Providers Care Tire Technician Name Role Phone Jared Abrams MD Primary Care Provider [phone] Encounter Details Date Type Department Care Team (Latest Contact Info) Description 03/30/2020 1:25 PM CDT - 03/30/2020 11:59 PM CDT Hospital Encounter [facility] [address] [place] [address] Pollo Lopez, [facility] [place] [address] Discharge Disposition: Home or Self [...] PM CDT Hannah Reaagn RN Active documented in this encounter Medications [...] st Contact Info) Description 08/03/2024 2:00 PM SCREENER PERFUMER Appointment [facility] [address] [address] Josué Cook MD [address] [facility] 8 [place] [address] documented as of this encounter Goals Goal Patient Goal Type Associated Problems Recent Progress Patient-Stated? Author HOME TO [facility] Vannessa Light RN documented as of this encounter Procedures Procedure Name Priority Date/Time Associated Diagnosis Comments BASIC METABOLIC PANEL Routine 03/30/2020 1:30 PM CDT JENNY (acute kidney injury) Ulcerative colitis without complications, unspecified location ([facility]) CBC W/DIFF AUTOMATED Routine 03/30/2020 1:30 PM CDT Ulcerative colitis without complications, unspecified location ([facility]) Iron deficiency anemia, unspecified iron deficiency anemia type documented in this encounter Results * (ABNORMAL) CBC W/DIFF AUTOMATED (03/30/2020 1:30 PM CDT) WBC 12.7(H) 4.4 - 11.0 x10'3/uL 03/30/2020 1:45 PM CDT [facility] RBC 3.58(L) 4.50 - 5.10 x10'6/uL 03/30/2020 1:45 PM T [facility] HGB 9.2(L) 12.3 - 15.3 G/DL 03/30/2020 1:45 PM T [facility] HCT 30.1(L) 35.9 - 44.6 % 03/30/2020 1:45 PM CDT [facility] MCV 84.1 80.0 - 96.0 FL 03/30/2020 1:45 PM T [facility] MCH 25.7 25.3 - 30.9 PG 03/30/2020 1:45 PM T [facility] MCHC 30.6(L) 31.0 - 34.1 G/DL 03/30/2020 1:45 PM T [facility] RDW 20.0(H) 12.4 - 15.1 % 03/30/2020 1:45 PM T [facility] PLT 372(H) 151 - 353 x10'3/uL 03/30/2020 1:45 PM T [facility] MPV 8.6(L) 9.6 - 12.0 FL 03/30/2020 1:45 PM T [facility] SEG NEUTROPHILS 88(H) 42 - 72 % 0 1:59 PM CDT [facility] LYMPHOCYTES 9(L) 15.8 - 45.0 % 03/30/2020 1:59 PM T [facility] MONOCYTES 3(L) 5.7 - 12.5 % 03/30/2020 1:59 PM T [facility] ABS. NEUTROPHILS TOTAL 11.18(H) 1.40 - 6.00 x10'3/uL 03/30/2020 1:59 PM CDT [facility] ABS. LYMPHOCYTES 1.14 0.80 - 4.70 x10'3/uL 03/30/2020 1:59 PM CDT [facility] PLT MORPH. NORMAL 03/30/2020 1:59 PM CDT [facility] RBC MORPHOLOGY SLIGHT 03/30/2020 1:59 PM CDT [facility] Comment:ANISOCYTOSIS WBC MORPHOLOGY NORMAL 03/30/2020 1:59 PM CDT [facility] 03/30/2020 1:30 PM CDT Pollo Lopez APRN LABORATORY Edited Result - Final [facility] [id number] [place] [id number], * (ABNORMAL) BASIC METABOLIC PANEL (03/30/2020 1:30 PM CDT) GLUCOSE 144(H) 70 - 99 MG/DL 03/30/2020 1:56 PM CDT [facility] BUN 12 7 - 18 MG/DL 03/30/2020 1:56 PM CDT [facility] CREATININE S/P/B 0.95 0.55 - 1.02 MG/DL 03/30/2020 1:56 PM CDT [facility] SODIUM S/P/B 141 136 - 145 MMOL/L 03/30/2020 1:56 PM CDT [facility] POTASSIUM S/P/B 3.4(L) 3.5 - 5.1 MMOL/L 03/30/2020 1:56 PM CDT [facility] CHLORIDE S/P/B 104 100 - 108 MMOL/L 03/30/2020 1:56 PM CDT [facility] CO2 28.8 21 - 32 MMOL/L 03/30/2020 1:56 PM CDT [facility] CALCIUM S/P/B 8.9 8.5 - 10.1 MG/DL 03/30/2020 1:56 PM CDT [facility] ANION GAP 8.2 5 - 15 MMOL/L 03/30/2020 1:56 PM CDT [facility] BUN CREATININE RATIO 12.6 6 - 26 03/30/2020 1:56 PM CDT [facility] EGFR NON-AFR. AMER. 58(L) >90 ML/MIN/1.7 3 M2 03/30/2020 1:56 PM T [facility] EGFR AFR. AMER. 67(L) >90 ML/MIN/1.7 3 M2 03/30/2020 1:56 PM T [facility] Comment: NOTE: eGFR is not calculated for patients <18 years of age. This is an estimated GFR (CKD EPI) and should not be used for calculating drug doses. 03/30/2020 1:30 PM CDT Obdulio Darian Lopez [facility] Final Result [facility] [id number] [address] [id number], documented in this encounter Visit Diagnoses Diagnosis JENNY (acute kidney injury) ([facility]) Acute kidney failure, unspecified Ulcerative colitis without complications, unspecified location ([facility]) Iron deficiency anemia, unspecified iron deficiency anemia type documented in this encounter Care Teams Tire Technician Relationship Specialty Start Date End Date Jared Abrams MD PCP - General 08/28/11 07/16/22 documented as of this encounter
--- OUTSIDE RECORDS SUMMARY | 2024-07-15 17:18 | XMS_ITS | Encounter Summary ---
Author Organization [facility] Address [address] [facility] [place] [address] [place] [address] Care Team Providers Care Hvac/R Service Technician Name Role Phone Jared Abrams MD Primary Care Provider [phone] Reason for Visit * Reason Comments Ulcerative Colitis pt is here for a 3 m [facility] follow up, has questions regarding medication * Consultation/Treatment (Routine) - Closed Specialty Diagnoses / Procedures Referred By Angel t Referred To Contact GASTROENTEROLOGY Diagnoses FOLLOW UP Jared Abrams MD [facility] [place] [address] Phone: tel: fax: Vladimir Parsons MD [address] [address] Phone: tel: fax: Referral ID Status Reason Start Date Expiration Date Visits Re quested Visits Authorized [id number] Closed 07/07/2020 07/07/2022 100 100 Encounter Details Date Type Department Care Team (Latest Contact Info) Description 07/07/2020 3:40 PM SOIL CONSERVATIONIST Office Visit [facility] G[facility] Clinic [address] [address] Vladimir Parsons MD [address] [address] Ulcerative Colitis (pt is here [...] COVID-19? No / Unsure 07/07/2020 3:04 PM SOIL CONSERVATIONIST documented as of this encounter Last Filed Vital Signs Vital Sign Reading Time Taken Comments Blood Pressure 122/64 07/07/2020 3:30 PM SOIL CONSERVATIONIST Pulse 72 07/07/2020 3:30 PM SOIL CONSERVATIONIST Temperature - - Respiratory Rate 18 07/07/2020 3:30 PM SOIL CONSERVATIONIST Oxygen Saturation 96% 07/07/2020 3:30 PM SOIL CONSERVATIONIST Inhaled Oxygen Concentration - - Weight 73 kg (161 lb) 07/07/2020 3:30 PM SOIL CONSERVATIONIST Height 154.9 cm (5' 1 ) 07/07/2020 3:30 PM SOIL CONSERVATIONIST Body Mass Index 30.42 07/07/2020 3:30 PM SOIL CONSERVATIONIST documented in this encounter Functional Status * [...] biopsies performed by Vladimir Parsons MD at [facility] OR ??? PARTIAL HIP REPLACEMENT Left [...] PARSONS MD 07/07/2020 Voice recognition software utilized CONSERVATIONIST documented in this encounter Plan of Treatment Upcoming Encounters Date Type Department Care Team (Late st Contact Info) Description 08/03/2024 2:00 PM SOIL CONSERVATIONIST Appointment [address] [address] Josué Cook MD 49[address] [facility] 8 [place] [address] documented as of this encounter Goals Goal Patient Goal Type Associated Problems Recent Progress Patient-Stated? Author [facility] General No Vannessa Blackwell RN documented as of this encounter Visit Diagnoses Diagnosis Ulcerative colitis with complication, unspecified location (CMS/HCC [facility]/HCC) documented in this encounter Care Teams Hvac/R Service Technician Relationship Specialty Start Date End Date Jared Abrams MD PCP - General 08/28/11 07/16/22 documented as of this encounter
--- OUTSIDE RECORDS SUMMARY | 2024-07-15 17:18 | XMS_ITS | Encounter Summary ---
Author Organization [facility] Address [address] [facility] [place] [address] [place] [address] Care Team Providers Care Sourcer Name Role Phone Jared Abrams MD Primary Care Provider [phone] Encounter Details Date Type Department Care Team [...] Date Type Department Care Team (Late st [facility]) Description 08/03/2024 2:00 PM CLINICAL NURSE Appointment [facility] [address] [place] [address] Josué Cook MD [address] [address] documented as of this encounter Goals Goal Patient Goal Type Associated Problems Recent Progress Patient-Stated? Author [facility] General No Vannessa Blackwell RN documented as of this encounter Visit Diagnoses Not on filedocumented in this encounter Care Teams Sourcer Relationship Specialty Start Date End Date Jared Abrams MD PCP - General 08/28/11 07/16/22 documented as of this encounter
--- OUTSIDE RECORDS SUMMARY | 2024-07-15 17:18 | XMS_ITS | Encounter Summary ---
Author Organization [facility] Address [address] [facility] [place] [address] [place] [address] Care Team Providers Care Radar Mechanic Name Role Phone Jared Abrams MD Primary Care Provider [phone] Reason for Visit * Reason Onset Date Comments Diarrhea 05/09/2021 Encounter Details Date Type Department Care Team (Late st Contact Info) Description 05/09/2021 Telephone [facility] Medical Group Multispecialty Care - [facility] 3 [facility], [address] [place] [id number] Vladimir Parsons MD 3 [facility] [address] [place] [address] Diarrhea Social History Tobacco Use Types Packs/Day [...] 3:58 PM CDT Pt came to the [facility] and Dr. Parsons saw her * Hayley Leon - 05/09/2021 2:11 PM CDT Patient has been having diarrhea every day, and wants to know what she can take. Please follow up with patient. documented in this encounter Plan of Treatment Upcoming Encounters Date Type Department Care Team (Late st Contact Info) Description 08/03/2024 2:00 PM HOSPITAL LIAISON Appointment [facility] Day [facility] [address] [place] [address] Josué Cook MD [address] [address] documented as of this encounter Goals Goal Patient Goal Type Associated Problems Recent Progress Patient-Stated? Author [facility] General No Vannessa Blackwell RN documented as of this encounter Visit Diagnoses Not on filedocumented in this encounter Care Teams Radar Mechanic Relationship Specialty Start Date End Date Jared Abrams MD PCP - General 08/28/11 07/16/22 documented as of this encounter
--- OUTSIDE RECORDS SUMMARY | 2024-07-15 17:18 | XMS_ITS | Encounter Summary ---
Author Organization [facility] Address [address] [facility] [place] [address] [place] [address] Care Team Providers Care Inspector Repairer Name Role Phone Jared Abrams MD Primary Care Provider [phone] Reason for Visit * Reason Comments Ulcerative Colitis diarrhea * Consultation/Treatment (Routine) - Closed Specialty Diagnoses / Procedures Referred By Angel braswell Referred To Contact GASTROENTEROLOGY Diagnoses FU Procedures FOLLOW UP Jared Abrams MD [address] [place] [address] Phone: tel: fax: Vladimir Parsons MD [address] [address] Phone: tel: fax: Referral ID Status Reason Start Date Expiration Date Visits Re quested Visits Authorized [id number] Closed 11/16/2020 07/06/2022 100 100 Encounter Details Date Type Department Care Team (Latest Contact Info) Description 05/11/2021 2:40 PM CDT Office Visit [facility]ty Clinic [address] [address] Vladimir Parsons MD [address] [address] Ulcerative Colitis (diarrhea ) Social [...] biopsies performed by Vladimir Parsons MD at [facility] OR ??? PARTIAL HIP REPLACEMENT Left [...] st Contact Info) Description 08/03/2024 2:00 PM GAMEMASTER Appointment [address] [address] Josué Cook MD [address] [address] documented as of this encounter Goals Goal Patient Goal Type Associated Problems Recent Progress Patient-Stated? Author [facility] TO [facility] General No Vannessa Blackwell, RN documented as of this encounter Visit Diagnoses Diagnosis Ulcerative colitis with complication, unspecified location (CMS/HCC [facility])- Primary documented in this encounter Care Teams Inspector Repairer Relationship Specialty Start Date End Date Jared Abrams MD PCP - General 08/28/11 07/16/22 documented as of this encounter
--- OUTSIDE RECORDS SUMMARY | 2024-07-15 17:18 | XMS_ITS | Encounter Summary ---
Author Organization [facility] Address [address] [facility] [place] [address] [place] [address] Care Team Providers Care Health Administration Teacher Name Role Phone Jared Abrams MD Primary Care Provider [phone] Reason for Visit * Reason Comments Hospital Follow Up pt is getting better * Consultation/Treatment (Routine) - Closed Specialty Diagnoses / Procedures Referred By Angel braswell Referred To Contact GASTROENTEROLOGY Diagnoses Hospital f/u-EGD Procedures NEW PATIENT Vladimir Parsons MD 3 [facility] [address] [place] [address] Phone: tel: fax: Vladimir Parsons MD 3 [facility] [address] [place] [address] Phone: tel: fax: Referral ID Status Reason Start Date Expiration Date Visits Re quested Visits Authorized [id number] Closed 04/07/2020 04/07/2022 100 100 Encounter Details Date Type Department Care Team (Latest Contact Info) Description 04/07/2020 3:40 PM CDT Office Visit [facility] G[facility]enterology Specialty Clinic [address] [address] Vladimir Parsons MD 3 [facility] [address] [place] [address] Hospital Follow Up (pt is [...] Author Status No 03/23/2020 1:13 PM CDT aHnnah Reagan RN Active documented in this encounter [...] Contact Info) Description 08/03/2024 2:00 PM SENIOR STACK ENGINEER Appointment [address] [address] Josué Cook MD 49[address] [facility] 8 [place] [address] documented as of this encounter Goals Goal Patient Goal Type Associated Problems Recent Progress Patient-Stated? Author HOME TO [facility] General No Vannessa Blackwell, RN documented as of this encounter Visit Diagnoses Diagnosis Ulcerative colitis with complication, unspecified location (CMS/HCC [facility]/HCC)- Primary documented in this encounter Care Teams Health Administration Teacher Relationship Specialty Start Date End Date Jared Abrams MD PCP - General 08/28/11 07/16/22 documented as of this encounter
--- OUTSIDE RECORDS SUMMARY | 2024-07-15 17:18 | XMS_ITS | Encounter Summary ---
Author Organization [facility] Address [address] [place] [address] [place] [address] Care Team Providers Care Regulatory And Compliance Technician Name Role Phone Jared Abrams MD Primary Care Provider [phone] Encounter Details Date Type Department Care Team [...] Date Type Department Care Team (Late st [facility] Info) Description 08/03/2024 2:00 PM REVENUE CYCLE MANAGER Appointment [facility] [address] [place] [address] Josué Cook MD [address] [address] documented as of this encounter Goals Goal Patient Goal Type Associated Problems Recent Progress Patient-Stated? Author HOME TO [facility] General No Vannessa Blackwell RN documented as of this encounter Visit Diagnoses Not on filedocumented in this encounter Care Teams Regulatory And Compliance Technician Relationship Specialty Start Date End Date Jared Abrams MD PCP - General 08/28/11 07/16/22 documented as of this encounter
--- OUTSIDE RECORDS SUMMARY | 2024-07-15 17:19 | XMS_ITS | Encounter Summary ---
Author Organization [facility] Address [address] [place] [address] [place] [address] Care Team Providers Care Circuit Walker Name Role Phone Jared Leyva MD Primary Care Provider [phone] Reason for Visit * Reason Comments Diarrhea * Auth/Cert Specialty Diagnoses / Procedures Referred By Contclemencia t Referred To Contact Diagnoses Colitis JENNY (acute kidney injury) ([facility]) Colitis Referral ID Status Reason Start Date Expiration Date Visits Re quested Visits Authorized [id number] 1 1 Encounter Details Date Type Department Care Team (Late st Contact Info) Description 03/22/2020 11:42 AM CDT - 03/22/2020 12:14 PM CDT Surgery [facility] [address] [place] [address] Indigo Parsons MD [address] [place] [address] [phone] colonoscopy with biopsies Surgery Details Date/Time Status [...] No results for input(s): PH, PCO2, PO2, [id number], BICARBWB, BASEDEFICIT, BASEEXCESS in the [id number] hours. No results found for this or any previous visit. Radiology Reports : Results for orders placed or performed during the hospital encounter of 03/19/20 ECG 12 lead ?? Narrative ?? [facility] Test Date: 2020-03-19 Pat Name: RAHDA ALLEN Department: Room: 120 Gender: Female Plate Embosser: : 1945 Requested By: MAHESH NELSON Order Number: [id number] Reading MD: Keven Gunter Measurements Intervals [place] Rate: 78 P: 53 MA: 137 QRS: 22 QRSD: 87 T: 12 QT: 355 QTc: 405 Interpretive Statements SINUS RHYTHM LOW QRS VOLTAGE IN PRECORDIAL LEADS No previous ECG available for comparison ?? CT ABD+PEL WO CON [[id number]] Collected: 03/20/20825 ?? Updated: 03/20/20834 Narrative: ?? [...] Your Medications These medications were sent to [id number] - [place], [place] - [address] [facility] [address] [address] [facility] [address] ?? ferrous sulfate EC 324 (65 Fe) [...] Care Everywhere. * Ulcerative Colitis Discharge Instructions (Maltese) * Diet for Ulcerative Colitis (Maltese) documented in this encounter Medications at Time [...] Mac RN - 03/23/2020 11:11 AM CDT [facility] for discharge planning @1100 with HOSPITALIST, HYDROPULPER OPERATOR, CM, UR, PASTORAL CARE, PHARMACY, CARDIOPULMONARY, RESEARCH STAFF MEMBER, HH. F/u with Dr. Parsons (GI) after [...] 1 g Intravenous Q24H Darmaribel R Kristent, CARE TEAM COORDINATOR SCHEDULER 1 g at 03/22/20 1053 ??? enoxaparin (LOVENOX) 40 MG/0.4ML syringe 40 mg 40 mg Subcutaneous Q24H Darmaribel R John, CARE TEAM COORDINATOR SCHEDULER Stopped at 03/22/20 0918 ??? HYDROcodone-acetaminophen (NORCO) 5-325 MG tablet 1 tablet 1 tablet Oral Q4H PRN Madison Aaron MD ??? lactated ringers infusion Intravenous Continuous Indigo Parsons MD Stopped at 03/22/20 1045 ??? methylPREDNISolone sodium succinate (SOLU-Medrol) injection 40 mg 40 mg Intravenous Daily DarmaribelR John, CARE TEAM COORDINATOR SCHEDULER 40 mg at 03/22/20 1438 ??? metroNIDAZOLE (FLAGYL) IVPB 500 mg 500 mg Intravenous Q8H Pollo R John, CARE TEAM COORDINATOR SCHEDULER Stopped at 03/22/20 1153 ??? morphine injection [...] 0.9% infusion Intravenous Continuous Darmaribel R John, CARE TEAM COORDINATOR SCHEDULER 100 mL/hr at 03/22/20 1053 ??? [START ON 03/23/2020] vancomycin (VANCOCIN) 1,000 mg in sodium chloride 0.9 % 250 mL IVPB 1,000 mg Intravenous Q18H Darmaribel Darian Hogue, CARE TEAM COORDINATOR SCHEDULER ??? vitamin B-12 (CYANOCOBALAMIN) tablet 1,000 mcg [...] of 03/19/[address] [facility] Test Date: 2020-03-19 Pat Name: RADHA ALLEN Department: Room: 120 Gender: Female Plate Embosser: : 1945 Requested By: MAHESH NELSON Order Number: [id number] Reading MD: Keven Gunter Measurements Intervals [place] Rate: 78 P: 53 MA: 137 QRS: 22 QRSD: 87 T: 12 QT: 355 QTc: 405 Interpretive Statements SINUS RHYTHM LOW QRS VOLTAGE IN PRECORDIAL LEADS No previous ECG available for comparison CT ABD+PEL WO CON [[id number]] Collected: 03/20/20825 ?? Updated: 03/20/20834 Narrative: ?? [...] CASE MANAGEMENT, UR, NURSING, PT, OT, CARDIOPULMONARY, RESEARCH STAFF MEMBER, HOSPITALIST HOME HEALTH,PASTORAL CARE, PHARMACY Meeting held at 1100. RESEARCH STAFF MEMBER REPORTS BLOOD CULTURE POSITIVE. WILL NOT DC [...] 40 mg Oral Nightly at bedtime Madison Araon MD 40 mg at 03/20/202021 ??? piperacillin-tazobactam (ZOSYN) 3.375 g in sodium chloride 0.9 % 50 mL IVPB 3.375 g [id number] Durga Parekh MD 12.5 mL/hr at 03/21/20 [...] encounter of 03/19/20 ECG 12 lead N[facility]ative [facility] Test Date: 2020-03-19 Pat Name: RADHA ALLEN Department: Room: 120 Gender: Female Plate Embosser: : 1945 Requested By: MAHESH NELSON Order Number: [id number] Reading MD: Keven Gunter Measurements Intervals [place] Rate: 78 P: 53 MA: 137 QRS: 22 QRSD: 87 T: 12 QT: 355 QTc: 405 Interpretive Statements SINUS RHYTHM LOW QRS VOLTAGE IN PRECORDIAL LEADS No previous ECG available for comparison CT ABD+PEL WO CON [[id number]] Collected: 03/20/20825 ?? Updated: 03/20/20834 Narrative: ?? [...] case management, UR, nursing, PT, OT, cardiopulmonary, RESEARCH STAFF MEMBER, Hospitalist, Pastoral Care, and Pharmacy. Meeting held at 11:00. Plan for colonoscopy tomorrow. * Vannessa Blackwell RN - 03/20/2020 2:10 PM CDT [facility] CARE CONFERENCE: TEAM ATTENDANCE: CASE MANAGEMENT, UR, NURSING, PT, OT, CARDIOPULMONARY, RESEARCH STAFF MEMBER, HOSPITALIST HOME HEALTH,PASTORAL CARE, PHARMACY Meeting held [...] Assistance No Behavior Oriented;Cooperative Communication Talks;Understands speaking;Understands Maltese Socioeconomic Needs Caregiver Needed No At Risk [...] of major lifestyle changes, including change in research staff member living environment No Family concerns/conflicts No Inadequate social and/or financial supports No Abuse and/or neglect of elder, adult or child No Psychiatric and/or substance abuse issues affecting current hospitalization No Homelessness with lack of safe discharge environment No Need for guardianship petition No Chaptered patient No LIVES ALONE. DAUGHTER IN AREA AND ASSISTS NEEDED. PATIENT IS VERY ACTIVE WITH BAPTISM. DENIES NEED FOR HOME HEALTH ARE OTHER SERVICES documented in this encounter H&P Notes * Cara Alvarado, CARE TEAM COORDINATOR SCHEDULER - 03/20/2020 9:10 AM CDT Hospitalist History [...] file Gets together: Not on file Attends mandaeism service: Not on file Active member of [...] & Other Studies CT ABD+PEL WO CON [[id number]] Collected: 03/20/20825 Updated: 03/20/2035 Narrative: ?? IMAGING [...] encounter of 03/19/20 ECG 12 lead [facility]ative [facility] Date: 2020-03-19 Pat Name: RADHA ALLEN Department: Room: 120 Gender: Female Plate Embosser: : 1945 Requested By: MAHESH NELSON Order Number: [id number] Reading MD: Keven Gunter Measurements Intervals [place] Rate: 78 P: 53 MA: 137 QRS: 22 QRSD: 87 T: 12 [...] from [place]. While there she had immersion scientologist. She noticed watery stools within a few [...] file Gets together: Not on file Attends mandaeism service: Not on file Active member of [...] Parsons MD - 03/22/2020 10:27 AM CDT [facility] OpNote colonoscopy with biopsies Procedure Note Radhafatoumata Tolbert Alejandro 03/19/2020 - 03/22/2020 1142 Procedure(s) (LRB): colonoscopy with biopsies (N/A) Surgeon(s): Indigo Parsons MD Staff: Circulating Nurse 1: Miroslava Henderson RN manganese wheeler: Jody Francisco, BIT SHARPENER OPERATOR Anesthesia: * No anesthesia type entered * SOFTWARE CONFIGURATION MANAGER: Rochelle García CRNA Pre-Op Diagnosis: diarrhea [...] encounter of 03/19/20 ECG 12 lead Narrative [facility] Test Date: 2020-03-19 Pat Name: RADHA ALLEN Department: Room: EXAM 101 Gender: Female Plate Embosser: : 1945 Requested By: MAHESH NELSON Order Number: [id number] Reading MD: Measurements Intervals [place] Rate: 78 P: 53 MA: 137 QRS: 22 QRSD: 87 T: 12 [...] Colitis Disposition: Admit Mahesh Nelson MD 03/19/20 7764 * Kaitlynn Amin RN - 03/19/2020 8:35 PM CDT Patient arrived via POV from home with c/o diarrhea, 5-6 loose stools in the past 24 hours, since September. Patient returned home from [facility] and began having diarrhea. Has had stool samples, which werenegative. Patient c/o generalized weakness and family reports that she appears pale. Also, c/o hemorroids. documented in this encounter Plan of Treatment Upcoming Encounters Date Type Department Care Team (Late st Contact Info) Description 08/03/2024 2:00 PM ASSISTANT STORE MANAGER Appointment [facility] [address] [place] [address] Josué Cook MD [address] [facility] [address] [place] [address] Pending Results Name Type Priority Associated Diagnoses Date /Time Blood Bank - Specimen Hold Blood Bank Routine 03/19/2020 8:45 PM CDT documented as of this encounter Goals Goal Patient Goal Type Associated Problems Recent Progress Patient-Stated? Author HOME TO INDEPENDENT LIVING [facility] Vannessa Light RN documented as of [...] BASIC METABOLIC PANEL (03/30/2020 1:30 PM CDT) [facility] Signature GLUCOSE 144(H) 70 - 99 MG/DL 03/30/2020 1:[address] [facility] BUN 12 7 - 18 MG/DL 03/30/2020 1:[address] [facility] CREATININE S/P/B 0.95 0.55 - 1.02 MG/DL 03/30/2020 1:[address] [facility] SODIUM S/P/B 141 136 - 145 MMOL/L 03/30/2020 1:[address] [facility] POTASSIUM S/P/B 3.4(L) 3.5 - 5.1 MMOL/L 03/30/2020 1:[address] [facility] CHLORIDE S/P/B 104 100 - 108 MMOL/L 03/30/2020 1:[address] [facility] CO2 28.8 21 - 32 MMOL/L 03/30/2020 1:[address] [facility] CALCIUM S/P/B 8.9 8.5 - 10.1 MG/DL 03/30/2020 1:[address] [facility] ANION GAP 8.2 5 - 15 MMOL/L 03/30/2020 1:[address] [facility] BUN CREATININE RATIO 12.6 6 - 26 03/30/2020 1:[address] [facility] EGFR NON-AFR. AMER. 58(L) >90 ML/MIN/1.7 3 M2 03/30/2020 1:56 PM [facility] EGFR AFR. AMER. 67(L) >90 ML/MIN/1.7 3 M2 03/30/2020 1:[address] [facility] Comment: NOTE: eGFR is not calculated for patients <18 years of age. This is an estimated GFR (CKD EPI) and should not be used for calculating drug doses. 03/30/2020 1:30 PM CDT Pollo Hogue CARE TEAM COORDINATOR SCHEDULER LABORATORY Final Result [facility] [address] [place] [address], * (ABNORMAL) CBC W/DIFF AUTOMATED (03/30/2020 1:30 PM CDT) WBC 12.7(H) 4.4 - 11.0 x10'3/uL 03/30/2020 1:[address] [facility] RBC 3.58(L) 4.50 - 5.10 x10'6/uL 03/30/2020 1:[address] [facility] HGB 9.2(L) 12.3 - 15.3 G/DL 03/30/2020 1:[address] [facility] HCT 30.1(L) 35.9 - 44.6 % 03/30/2020 1:[address] [facility] MCV 84.1 80.0 - 96.0 FL 03/30/2020 1:[address] [facility] MCH 25.7 25.3 - 30.9 PG 03/30/2020 1:[address] [facility] MCHC 30.6(L) 31.0 - 34.1 G/DL 03/30/2020 1:[address] [facility] RDW 20.0(H) 12.4 - 15.1 % 03/30/2020 1:[address] [facility] PLT 372(H) 151 - 353 x10'3/uL 03/30/2020 1:[address] [facility] MPV 8.6(L) 9.6 - 12.0 FL 03/30/2020 1:[address] [facility] SEG NEUTROPHILS 88(H) 42 - 72 % 0 1:[address] [facility] LYMPHOCYTES 9(L) 15.8 - 45.0 % 03/30/2020 1:[address] [facility] MONOCYTES 3(L) 5.7 - 12.5 % 03/30/2020 1:[address] [facility] ABS. NEUTROPHILS TOTAL 11.18(H) 1.40 - 6.00 x10'3/uL 03/30/2020 1:[address] [facility] ABS. LYMPHOCYTES 1.14 0.80 - 4.70 x10'3/uL 03/30/2020 1:[address] [facility] PLT MORPH. NORMAL 03/30/2020 1:[address] [facility] RBC MORPHOLOGY SLIGHT 03/30/2020 1:[address] [facility] Comment:ANISOCYTOSIS WBC MORPHOLOGY NORMAL 03/30/2020 1:[address] [facility] 03/30/2020 1:30 PM CDT Pollo Hogue APRN LABORATORY Edited Result - Final [facility] [address] [place] [address], [place] [phone] * (ABNORMAL) BASIC METABOLIC PANEL (03/23/2020 6:20 AM CDT) [facility] GLUCOSE 103(H) 70 - 99 MG/DL 03/23/2020 6:[address] [facility] BUN 3(L) 7 - 18 MG/DL 03/23/2020 6:[address] [facility] CREATININE S/P/B 1.07(H) 0.55 - 1.02 MG/DL 03/23/2020 6:55 AM [facility] SODIUM S/P/B 143 136 - 145 MMOL/L 03/23/2020 6:55 AM [facility] POTASSIUM S/P/B 3.7 3.5 - 5.1 MMOL/L 03/23/2020 6:55 AM [facility] CHLORIDE S/P/B 111(H) 100 - 108 MMOL/L 03/23/2020 6:55 AM [facility] CO2 23.4 21 - 32 MMOL/L 03/23/2020 6:55 AM [facility] CALCIUM S/P/B 7.1(L) 8.5 - 10.1 MG/DL 03/23/2020 6:55 AM [facility] ANION GAP 8.6 5 - 15 MMOL/L 03/23/2020 6:55 AM [facility] BUN CREATININE RATIO 2.8(L) 6 - 03/23/2020 6:55 AM [facility] EGFR NON-AFR. AMER. 50(L) >90 ML/MIN/1.7 3 M2 03/23/2020 6:55 AM [facility] EGFR AFR. AMER. 58(L) >90 ML/MIN/1.7 3 M2 03/23/2020 6:55 AM [facility] Comment: NOTE: eGFR is not calculated for patients <18 years of age. This is an estimated GFR (CKD EPI) and should not be used for calculating drug doses. 03/23/2020 6:20 AM CDT Pollo Hogue APRN LABORATORY Final Result [facility] [address] [place] [address], * (ABNORMAL) CBC W/DIFF AUTOMATED (03/23/2020 6:20 AM CDT) WBC 8.6 4.4 - 11.0 x10'3/uL 03/23/2020 6:[address] [facility] RBC 2.97(L) 4.50 - 5.10 x10'6/uL 03/23/2020 6:[address] [facility] HGB 7.7(L) 12.3 - 15.3 G/DL 03/23/2020 6:[address] [facility] HCT 24.1(L) 35.9 - 44.6 % 03/23/2020 6:[address] [facility] MCV 81.1 80.0 - 96.0 FL 03/23/2020 6:[address] [facility] MCH 25.9 25.3 - 30.9 PG 03/23/2020 6:[address] [facility] MCHC 32.0 31.0 - 34.1 G/DL 03/23/2020 6:[address] [facility] RDW 16.6(H) 12.4 - 15.1 % 03/23/2020 6:[address] [facility] PLT 342 151 - 353 x10'3/uL 03/23/2020 6:[address] [facility] MPV 8.4(L) 9.6 - 12.0 FL 03/23/2020 6:[address] [facility] RBC MORPHOLOGY NORMAL 03/23/2020 6:[address] [facility] PLT MORPH. NORMAL 03/23/2020 6:[address] [facility] WBC MORPHOLOGY NORMAL 03/23/2020 6:[address] [facility] LYMPHOCYTES % 27.2 15.8 - 45.0 % 03/23/2020 6:[address] [facility] NEUTROPHILS % 56.9 42.1 - 71.9 % 03/23/2020 6:[address] [facility] MONOCYTES % 11.2 5.7 - 12.5 % 03/23/2020 6:[address] [facility] EOSINOPHILS 0.2 0.0 - 5.6 % 03/23/2020 6:[address] [facility] BASOPHILS 0.2 0.0 - 1.3 % 03/23/2020 6:[address] [facility] ABS. NEUTROPHILS TOTAL 4.91 1.40 - 6.00 x10'3/uL 03/23/2020 6:[address] [facility] IMMATURE GRANS % 4.3(H) 0.0 - 0.5 % 03/23/2020 6:[address] [facility] ABS. LYMPHOCYTES 2.35 0.80 - 4.70 x10'3/uL 03/23/2020 6:[address] [facility] 03/23/2020 6:20 AM CDT us Pollo Hogue CARE TEAM COORDINATOR SCHEDULER LABORATORY Final Result [facility] [address] [place] [address], * (ABNORMAL) POCT glucose (03/22/2020 7:56 PM CDT) [facility] Signature GLUCOSE POC 175(H) 70 - 110 mg/dL 03/22/2020 9:[address] [facility] 03/22/2020 7:56 PM CDT Pollo Hogue APRN POCT ORDERABLES - DEVICE Final Result Performing Organization Address [facility] Co de Phone Number [facility] [address] [place] [address], [place] [phone] * CULTURE, BACTERIA, BLOOD (03/22/2020 11:57 AM CDT) SPEC DESCRIPTION BLOOD 03/22/2020 9:[address] [facility] SPECIAL REQUESTS NO SPECIAL REQUEST 03/22/2020 9:[address] [facility] CULTURE RESULT NO GROWTH 5 DAYS 03/27/2020 2:05 PM CDT [facility] BLOOD SPECIMEN OBTAINED FOR BLOOD CULTURE / Unknown 03/22/2020 11:57 AM CDT 03/22/2020 12:07 PM CDT Pollo Hogue APRN MICROBIOLOGY - GENERAL ORDERAB LES Final Result Performing Organization Address City/[facility]/ZIP Co de Phone Number [facility] [address] [place] [address], [place] [phone] [facility] [address] [place] [address], [place] [phone] * CULTURE, BACTERIA, BLOOD (03/22/2020 11:57 AM CDT) SPEC DESCRIPTION BLOOD 03/22/2020 9:[address] [facility] SPECIAL REQUESTS NO SPECIAL REQUEST 03/22/2020 9:[address] [facility] CULTURE RESULT NO GROWTH 5 DAYS 03/27/2020 2:05 PM CDT [facility] BLOOD SPECIMEN OBTAINED FOR BLOOD CULTURE / Unknown 03/22/2020 11:57 AM CDT 03/22/2020 12:07 PM CDT Pollo Farmer Kristenmichaelle CARE TEAM COORDINATOR SCHEDULER MICROBIOLOGY - GENERAL ORDERAB LES Final Result [facility] [address] [place] [address], [place] [phone] [facility] [address] [place] [address], [place] [phone] * Pathology (03/22/2020 10:20 AM CDT) Tissue specimen (specimen) COLON STRUCTURE / Unknown 03/22/2020 10:20 AM CDT Tissue specimen (specimen) COLON STRUCTURE / Unknown 03/22/2020 10:22 AM CDT Tissue specimen (specimen) SPECIMEN FROM RECTUM / Unknown 03/22/2020 10:[address] [facility] - 03/23/2020 5:19 PM CDT [facility] Date of Service: ??03/22/2020 Preoperative Diagnosis: ??Diarrhea [...] submitted entirely in block C. CPT Code: ??09464 x3 D: ??03/22/2020 02:17 PM #[id number] T: ??03/22/2020 04:47 PM /NTS A copy of this report has been sent to: [facility] [id number] PATHOLOGIC DIAGNOSIS: Right colon, colonoscopy with biopsies: [...] chronic ulcerative colitis. D: ??03/23/2020 04:21 PM #[id number] T: ??03/23/2020 05:09 PM /NTS Indigo Parsons MD PATHOLOGY/CYTOLOGY ORDERABLES Fi nal Result [facility] [address] [place] [address], * (ABNORMAL) BASIC METABOLIC PANEL (03/22/2020 6:55 AM CDT) GLUCOSE 88 70 - 99 MG/DL 03/22/2020 8:[address] [facility] BUN 5(L) 7 - 18 MG/DL 03/22/2020 8:[address] [facility] CREATININE S/P/B 0.82 0.55 - 1.02 MG/DL 03/22/2020 8:[address] [facility] SODIUM S/P/B 144 136 - 145 MMOL/L 03/22/2020 8:[address] [facility] POTASSIUM S/P/B 4.1 3.5 - 5.1 MMOL/L 03/22/2020 8:[address] [facility] CHLORIDE S/P/B 112(H) 100 - 108 MMOL/L 03/22/2020 8:[address] [facility] CO2 24.4 21 - 32 MMOL/L 03/22/2020 8:[address] [facility] CALCIUM S/P/B 7.0(L) 8.5 - 10.1 MG/DL 03/22/2020 8:[address] [facility] ANION GAP 7.6 5 - 15 MMOL/L 03/22/2020 8:[address] [facility] BUN CREATININE RATIO 6.1 6 - 03/22/2020 8:[address] [facility] EGFR NON-AFR. AMER. 70(L) >90 ML/MIN/1.7 3 M2 03/22/2020 8:[address] [facility] EGFR AFR. AMER. 81(L) >90 ML/MIN/1.7 3 M2 03/22/2020 8:[address] [facility] Comment: NOTE: eGFR is not calculated for patients <18 years of age. This is an estimated GFR (CKD EPI) and should not be used for calculating drug doses. 03/22/2020 6:55 AM CDT [facility] CARE TEAM COORDINATOR SCHEDULER LABORATORY Final Result [facility] [address] [place] [address], * (ABNORMAL) CBC W/DIFF AUTOMATED (03/22/2020 6:55 AM CDT) WBC 6.6 4.4 - 11.0 x10'3/uL 03/22/2020 7:[address] [facility] RBC 3.12(L) 4.50 - 5.10 x10'6/uL 03/22/2020 7:[address] [facility] HGB 7.8(L) 12.3 - 15.3 G/DL 03/22/2020 7:[address] [facility] HCT 25.2(L) 35.9 - 44.6 % 03/22/2020 7:[address] [facility] MCV 80.8 80.0 - 96.0 FL 03/22/2020 7:[address] [facility] MCH 25.0(L) 25.3 - 30.9 PG 03/22/2020 7:[address] [facility] MCHC 31.0 31.0 - 34.1 G/DL 03/22/2020 7:14 AM [facility] RDW 16.5(H) 12.4 - 15.1 % 03/22/2020 7:14 AM [facility] PLT 321 151 - 353 x10'3/uL 03/22/2020 7:14 AM [facility] MPV 8.0(L) 9.6 - 12.0 FL 03/22/2020 7:14 AM [facility] RBC MORPHOLOGY NORMAL 03/22/2020 7:14 AM [facility] PLT MORPH. NORMAL 03/22/2020 7:[address] [facility] WBC MORPHOLOGY NORMAL 03/22/2020 7:[address] [facility] LYMPHOCYTES % 29.5 15.8 - 45.0 % 03/22/2020 7:[address] [facility] NEUTROPHILS % 53.5 42.1 - 71.9 % 03/22/2020 7:[address] [facility] MONOCYTES % 11.0 5.7 - 12.5 % 03/22/2020 7:[address] [facility] EOSINOPHILS 1.7 0.0 - 5.6 % 03/22/2020 7:[address] [facility] BASOPHILS 0.5 0.0 - 1.3 % 03/22/2020 7:[address] [facility] ABS. NEUTROPHILS TOTAL 3.54 1.40 - 6.00 x10'3/uL 03/22/2020 7:[address] [facility] IMMATURE GRANS % 3.8(H) 0.0 - 0.5 % 03/22/2020 7:[address] [facility] ABS. LYMPHOCYTES 1.95 0.80 - 4.70 x10'3/uL 03/22/2020 7:[address] [facility] 03/22/2020 6:55 AM CDT Pollo Hogue APRN LABORATORY Final Result [facility] [address] [place] [address], [place] [phone] * (ABNORMAL) IRON SAT PANEL (IRON,IBC,%SAT) (03/22/2020 6:55 AM CDT) IRON 33(L) 50 - 170 MCG/DL 03/22/2020 7:[address] [facility] IRON BINDING CAPACITY 133(L) 250 - 450 MCG/DL 03/22/2020 7:[address] [facility] IRON SATURATION 25 20 - 55 % 0 7:[address] [facility] 03/22/2020 6:55 AM CDT Durga Parehk MD LABORATORY Final Result Performing Organization Address City/[facility]/ZIP Co de Phone Number [facility] [address] [place] [address], [place] [phone] * (ABNORMAL) VITAMIN B12 / FOLATE (03/22/2020 6:55 AM CDT) VITAMIN B12 S/P/B 4,687(H) 193 - 986 PG/ML 03/22/2020 8:[address] [facility] FOLATE 6.0(L) 8.6 - 58.9 NG/ML 03/22/2020 8:[address] [facility] 03/22/2020 6:55 AM CDT us Durga Parekh MD LABORATORY Final Result Performing Organization Address [facility]/ZIP Co de Phone Number [facility] [address] [place] [address], [place] [phone] * POCT glucose (03/22/2020 5:59 AM CDT) GLUCOSE POC 100 70 - 110 mg/dL 03/22/2020 6:[address] [facility] 03/22/2020 5:59 AM CDT Pollo Hogue APRN POCT ORDERABLES - DEVICE Final Result Performing Organization Address [facility]/ZIP Co de Phone Number [facility] [address] [place] [address], [place] [phone] * (ABNORMAL) POCT glucose (03/21/2020 8:25 PM CDT) GLUCOSE POC 137(H) 70 - 110 mg/dL 03/21/2020 8:[address] [facility] 03/21/2020 8:25 PM CDT Pollo Hogue CARE TEAM COORDINATOR SCHEDULER POCT ORDERABLES - DEVICE Final Result Performing Organization Address City/[facility]/ZIP Co de Phone Number [facility] [address] [place] [address], [place] [phone] * POCT glucose (03/21/2020 4:13 PM CDT) GLUCOSE POC 100 70 - 110 mg/dL 03/21/2020 5:[address] [facility] 03/21/2020 4:13 PM CDT Pollo Farmer John CARE TEAM COORDINATOR SCHEDULER POCT ORDERABLES - DEVICE Final Result [facility] [address] [place] [address], [place] [phone] * (ABNORMAL) BASIC METABOLIC PANEL (03/21/2020 12:09 PM CDT) GLUCOSE 100(H) 70 - 99 MG/DL 03/21/2020 12:[address] [facility] BUN 9 7 - 18 MG/DL 03/21/2020 12:[address] [facility] CREATININE S/P/B 0.84 0.55 - 1.02 MG/DL 03/21/2020 12:[address] [facility] SODIUM S/P/B 141 136 - 145 MMOL/L 03/21/2020 12:[address] [facility] POTASSIUM S/P/B 4.5 3.5 - 5.1 MMOL/L 03/21/2020 12:[address] [facility] CHLORIDE S/P/B 111(H) 100 - 108 MMOL/L 03/21/2020 12:[address] [facility] CO2 19.7(L) 21 - 32 MMOL/L 03/21/2020 12:[address] [facility] CALCIUM S/P/B 7.2(L) 8.5 - 10.1 MG/DL 03/21/2020 12:[address] [facility] ANION GAP 10.3 5 - 15 MMOL/L 03/21/2020 12:[address] [facility] BUN CREATININE RATIO 10.7 6 - 26 03/21/2020 12:[address] [facility] EGFR NON-AFR. AMER. 68(L) >90 ML/MIN/1.7 3 M2 03/21/2020 12:[address] [facility] EGFR AFR. AMER. 78(L) >90 ML/MIN/1.7 3 M2 03/21/2020 12:[address] [facility] Comment: NOTE: eGFR is not calculated for patients <18 years of age. This is an estimated GFR (CKD EPI) and should not be used for calculating drug doses. 03/21/2020 12:0 9 PM CDT [facility] CARE TEAM COORDINATOR SCHEDULER LABORATORY Final Result [facility] [address] [place] [address], * (ABNORMAL) CBC W/DIFF AUTOMATED (03/21/2020 12:09 PM CDT) WBC 7.3 4.4 - 11.0 x10'3/uL 03/21/2020 12:[address] [facility] RBC 3.22(L) 4.50 - 5.10 x10'6/uL 03/21/2020 12:[address] [facility] HGB 8.2(L) 12.3 - 15.3 G/DL 03/21/2020 12:[address] [facility] HCT 26.6(L) 35.9 - 44.6 % 03/21/2020 12:[address] [facility] MCV 82.6 80.0 - 96.0 FL 03/21/2020 12:[address] [facility] MCH 25.5 25.3 - 30.9 PG 03/21/2020 12:22 PM [facility] MCHC 30.8(L) 31.0 - 34.1 G/DL 03/21/2020 12:[address] [facility] RDW 16.7(H) 12.4 - 15.1 % 03/21/2020 12:22 PM [facility] PLT 345 151 - 353 x10'3/uL 03/21/2020 12:22 PM [facility] MPV 8.6(L) 9.6 - 12.0 FL 03/21/2020 12:22 PM [facility] RBC MORPHOLOGY NORMAL 03/21/2020 12:22 PM [facility] PLT MORPH. NORMAL 03/21/2020 12:[address] [facility] WBC MORPHOLOGY NORMAL 03/21/2020 12:22 PM [facility] LYMPHOCYTES % 23.1 15.8 - 45.0 % 03/21/2020 12:22 PM [facility] NEUTROPHILS % 60.5 42.1 - 71.9 % 03/21/2020 12:[address] [facility] MONOCYTES % 11.5 5.7 - 12.5 % 03/21/2020 12:[address] [facility] EOSINOPHILS 1.5 0.0 - 5.6 % 03/21/2020 12:22 PM [facility] BASOPHILS 0.5 0.0 - 1.3 % 03/21/2020 12:[address] [facility] ABS. NEUTROPHILS TOTAL 4.40 1.40 - 6.00 x10'3/uL 03/21/2020 12:[address] [facility] IMMATURE GRANS % 2.9(H) 0.0 - 0.5 % 03/21/2020 12:[address] [facility] ABS. LYMPHOCYTES 1.68 0.80 - 4.70 x10'3/uL 03/21/2020 12:[address] [facility] 03/21/2020 12:0 9 PM CDT Pollo Hogue CARE TEAM COORDINATOR SCHEDULER LABORATORY Final Result [facility] [address] [place] [address], [place] [phone] * US RETROPERITONEAL COMP (03/21/2020 10:53 AM [...] COMPARISON: CT 03/19/2020 TECHNIQUE: Examination performed by brownfield program coordinator using grayscale with color flow and spectral Doppler. Selected images submitted for interpretation. Worksheet completed. Procedure Note Driss Garcia MD - 03/21/2020 IMAGING STUDIES:US RETROPERITONEAL COMP DATE: 03/21/2020 9:33 AM INDICATION: left renal lesion noted on CT COMPARISON: CT 03/19/2020 TECHNIQUE: Examination performed by brownfield program coordinator using grayscalewith color flow and spectral Doppler. [...] Driss Garcia, 03/21/2020 12:23 PM Cara Alvarado CARE TEAM COORDINATOR SCHEDULER ULTRASOUND Final Re sult * POCT glucose (03/21/2020 6:07 AM CDT) GLUCOSE POC 107 70 - 110 mg/dL 03/21/2020 6:[address] [facility] 03/21/2020 6:07 AM CDT Durga Parekh MD POCT ORDERABLES - DEVICE Final Result [facility] [address] [place] [address], [place] [phone] * O&P CONC&SMEAR TO REF LAB (03/20/2020 12:25 PM CDT) SPECIMEN SOURCE STOOL 0 12:[address] [facility] O & P EXAMINATION (STOOL) REPORT 03/29/2020 8:32 PM CDT [facility] Comment: Ova and Parasites, Concentrate and Permanent Smear Examination for Ova and Parasites SOURCE : STOOL Result/Comment: NO OVA AND PARASITES SEEN. Reference Range: ??No Ova and Parasites seen Routine Ova and Parasite Exam may not detect some parasites that occasionally cause diarrheal illness. Test code(s) 46055D[39520](Cryptosporidium Ag, DFA) and/or 47988J[77674] (Cyclospora and Isospora Exam) may be ordered to detect these parasites. One negative sample does not necessarily rule out the presence of a parasitic infection. Assay performed by wet mount after concentration. Parasite Exam, Trichrome Stain SOURCE : STOOL Result/Comment: NO OVA AND PARASITES SEEN. Routine Ova and Parasite Exam may not detect some parasites that occasionally cause diarrheal illness. Test code(s) 13427Y[18497](Cryptosporidium Ag, DFA) and/or 62160E[54193] (Cyclospora and Isospora Exam) may be ordered to detect these parasites. One negative sample does not necessarily rule out the presence of a parasitic infection. For additional information, please refer to https://education.Calsys/faq/BNU026 (This link is being provided for informational/ educational purposes only.) Test Performed by Sierra [facility] [employer] [facility], [address] [place], [place] Gamal Gao M.D., Ph.D., Director of Laboratories , [place] [id number] STOOL SPECIMEN / Unknown 03/20/2020 12:25 PM CDT Durga Parekh MD MICROBIOLOGY - GENERAL ORDERAB LES Final Result [facility] [id number] [place] [address], [place] [phone] [facility] [address] [place] [address], [place] [phone] * CLOSTRIDIUM DIFFICILE (03/20/2020 11:25 AM CDT) C DIFFICILE TOXIN (STOOL) NEGATIVE NEGATIVE 03/20/2020 2:[address] [facility] STOOL SPECIMEN / Unknown 03/20/2020 11:25 AM CDT Durga Parekh MD BODY FLUIDS AND STOOLS ORDERAB LES Final Result [facility] [address] [place] [address], [place] [phone] * (ABNORMAL) LIPID PANEL (03/20/2020 5:30 AM CDT) Pathologist [facility] [place] CHOLESTEROL 51 <200.0 MG/DL 03/20/2020 6:[address] [facility] TRIGLYCERIDES 47 <150 MG/DL 03/20/2020 6:[address] [facility] HDL 36(L) >40.0 MG/DL 03/20/2020 6:[address] [facility] LDL (CALCULATED) 6 <100 MG/DL 03/20/20 20 6:[address] [facility] NON HDL CHOLESTEROL 15 <130 MG/DL 03/20 6:[address] [facility] CHOL/HDL RATIO 1.4 0.0 - 4.5 03/20/2020 6:[address] [facility] VLDL CALCULATION 9 5 - 55 MG/DL 03/20/2020 6:[address] [facility] LIPID INTERPRETATION 03/20/2020 6:[address] [facility] Comment: NIH CONCENSUS REPORT RECOMMENDATIONS: [...] us Madison Aaron MD LABORATORY Final Result [facility] [address] [place] [phone], * (ABNORMAL) MAGNESIUM (03/20/2020 5:30 AM CDT) Pathologist [facility] [place] MAGNESIUM 1.6(L) 1.8 - 2.4 MG/DL 03/20/2020 6:[address] [facility] 03/20/2020 5:30 AM CDT Madison Aaron MD LABORATORY Final Result [facility] [address] [place] [address], * (ABNORMAL) BASIC METABOLIC PANEL (03/20/2020 5:30 AM CDT) Pathologist [facility] GLUCOSE 74 70 - 99 MG/DL 03/20/2020 6:[address] [facility] BUN 24(H) 7 - 18 MG/DL 03/20/2020 6:[address] [facility] CREATININE S/P/B 1.59(H) 0.55 - 1.02 MG/DL 03/20/2020 6:[address] [facility] SODIUM S/P/B 140 136 - 145 MMOL/L 03/20/2020 6:[address] [facility] POTASSIUM S/P/B 5.0 3.5 - 5.1 MMOL/L 03/20/2020 6:[address] [facility] CHLORIDE S/P/B 110(H) 100 - 108 MMOL/L 03/20/2020 6:[address] [facility] CO2 20.2(L) 21 - 32 MMOL/L 03/20/2020 6:[address] [facility] CALCIUM S/P/B 7.4(L) 8.5 - 10.1 MG/DL 03/20/2020 6:[address] [facility] ANION GAP 9.8 5 - 15 MMOL/L 03/20/2020 6:[address] [facility] BUN CREATININE RATIO 15.1 6 - 26 03/20/2020 6:[address] [facility] EGFR NON-AFR. AMER. 31(L) >90 ML/MIN/1.7 3 M2 03/20/2020 6:[address] [facility] EGFR AFR. AMER. 36(L) >90 ML/MIN/1.7 3 M2 03/20/2020 6:[address] [facility] Comment: NOTE: eGFR is not calculated for patients <18 years of age. This is an estimated GFR (CKD EPI) and should not be used for calculating drug doses. 03/20/2020 5:30 AM CDT us Madison Aaron MD LABORATORY Final Result [facility] [address] [place] [address], * (ABNORMAL) CBC W/DIFF AUTOMATED (03/20/2020 5:30 AM CDT) WBC 11.2(H) 4.4 - 11.0 x10'3/uL 03/20/2020 6:[address] [facility] RBC 3.10(L) 4.50 - 5.10 x10'6/uL 03/20/2020 6:[address] [facility] HGB 7.8(L) 12.3 - 15.3 G/DL 03/20/2020 6:[address] [facility] HCT 25.6(L) 35.9 - 44.6 % 03/20/2020 6:[address] [facility] MCV 82.6 80.0 - 96.0 FL 03/20/2020 6:[address] [facility] MCH 25.2(L) 25.3 - 30.9 PG 03/20/2020 6:[address] [facility] MCHC 30.5(L) 31.0 - 34.1 G/DL 03/20/2020 6:[address] [facility] RDW 16.1(H) 12.4 - 15.1 % 03/20/2020 6:[address] [facility] PLT 336 151 - 353 x10'3/uL 03/20/2020 6:30 AM [facility] MPV 9.0(L) 9.6 - 12.0 FL 03/20/2020 6:30 AM [facility] RBC MORPHOLOGY NORMAL 03/20/2020 6:30 AM [facility] PLT MORPH. NORMAL 03/20/2020 6:30 AM [facility] WBC MORPHOLOGY NORMAL 03/20/2020 6:30 AM [facility] LYMPHOCYTES % 15.5(L) 15.8 - 45.0 % 03/20/2020 6:30 AM [facility] NEUTROPHILS % 70.7 42.1 - 71.9 % 03/20/2020 6:[address] [facility] MONOCYTES % 11.5 5.7 - 12.5 % 03/20/2020 6:30 AM [facility] EOSINOPHILS 0.8 0.0 - 5.6 % 03/20/2020 6:30 AM [facility] BASOPHILS 0.3 0.0 - 1.3 % 03/20/2020 6:30 AM [facility] ABS. NEUTROPHILS TOTAL 7.93(H) 1.40 - 6.00 x10'3/uL 03/20/2020 6:[address] [facility] IMMATURE GRANS % 1.2(H) 0.0 - 0.5 % 03/20/2020 6:[address] [facility] ABS. LYMPHOCYTES 1.74 0.80 - 4.70 x10'3/uL 03/20/2020 6:[address] [facility] 03/20/2020 5:30 AM CDT Madison Aaron MD LABORATORY Final Result Performing Organization Address City/[facility]/ZIP Co de Phone Number [facility] [address] [place] [address], [place] [phone] * CULTURE, BACTERIA, BLOOD (03/20/2020 5:21 AM CDT) SPEC DESCRIPTION BLOOD 03/19/2020 11:[address] [facility] SPECIAL REQUESTS NO SPECIAL REQUEST 03/19/2020 11:[address] [facility] CULTURE RESULT NO GROWTH 5 DAYS 2020 3:42 PM CDT [facility] BLOOD SPECIMEN OBTAINED FOR BLOOD CULTURE / Unknown 03/20/2020 5:21 AM CDT 03/20/2020 5:22 AM CDT Mahesh Nelson MD MICROBIOLOGY - GENERAL MIA LEARY Final Result [facility] [address] [place] [address], [place] [phone] [facility] [address] [place] [address], [place] [phone] * (ABNORMAL) CULTURE, BACTERIA, BLOOD (03/20/2020 5:21 AM CDT) SPEC DESCRIPTION BLOOD 03/19/2020 11:[address] [facility] SPECIAL REQUESTS NO SPECIAL REQUEST 03/19/2020 11:[address] [facility] GRAM STAIN RESULT MODERATE GRAM POSITIVE COCCI RESEMBLING STAPHYLOCOCCUS SPECIES 03/22/2020 2:[address] [facility] CULTURE RESULT GROWTH OF STAPH. SPECIES NOT STAPH. AUREUS SUSCEPTIBILTY NOT ROUTINELY PERFORMED. SAVING ISOLATE FOR 5 DAYS. CONTACT MICROBIOLOGY DEPARTMENT IF FURTHER WORKUP IS INDICATED. (AA) 03/23/2020 9:47 AM CDT [facility] CULTURE RESULT CALLED TO AND READ BACK BY CHIKA BORREGO ON 03/22/20 AT 0250 BY [facility] 03/23/2020 9:47 AM CDT [facility] BLOOD SPECIMEN OBTAINED FOR BLOOD CULTURE / Unknown 03/20/2020 5:21 AM CDT 03/20/2020 5:22 AM CDT Mahesh Nelson MD MICROBIOLOGY - GENERAL MIA LEARY Final Result [facility] [address] [place] [address], [facility] [address] [place] [address], * ECG 12 lead (03/19/2020 11:20 PM CDT) 03/19/2020 11:[address] [facility] - 03/20/2020 7:18 AM CDT [facility] ? Test Date: ?2020-03-19 Pat Name: ? RADHA ALLEN ? Department: ? Room: ? 120 Gender: ? Female ? Plate Embosser: ?? : ?1945 ? Requested By: MAHESH BRAHMAVAR Order Number: [id number] ? Reading MD: ?? Keven Gunter ? Measurements Intervals ?[place] ? Rate: ? 78 ? P: ?53 MA: ? 137 ?QRS: ?22 QRSD: ? 87 ? T: ?12 QT: ? 355 ? QTc: ?405 ? Interpretive Statements SINUS RHYTHM LOW QRS VOLTAGE IN PRECORDIAL LEADS ?? No previous ECG available for comparison Procedure Note Keven Gunter MD - 03/20/2020 [facility] Test Date: 2020-03-19 Pat Name: RADHA ALLEN Department: Room: 120 Gender: Female Plate Embosser: : 1945 Requested By: MAHESH NELSON Order Number: [id number] Reading MD: Keven Gunter Measurements Intervals [place] Rate: 78 P: 53 MA: 137 QRS: 22 QRSD: 87 T: 12 QT: 355 QTc: 405 Interpretive Statements SINUS RHYTHM LOW QRS VOLTAGE IN PRECORDIAL LEADS No previous ECG available for comparison us Mahesh Nelson MD ECG ORDERABLES Final Resul t [facility] RAD * CT ABD+PEL WO CON (03/19/2020 [...] - 2.0 MMOL/L 03/19/2020 9:[address] [facility] 03/19/2020 8:45 PM CDT us Mahesh Nelson MD LABORATORY Final Resul t Performing Organization Address [facility] Co de Phone Number [facility] [address] [place] [address], [place] [phone] * LIPASE (03/19/2020 8:45 PM CDT) LIPASE 74 73 - 393 UNITS/L 03/19/2020 9:[address] [facility] 03/19/2020 8:45 PM CDT us Mahesh Nelson MD LABORATORY Final Resul t Performing Organization Address [facility]/ZIP Co de Phone Number [facility] [address] [place] [address], [place] [phone] * (ABNORMAL) COMPREHENSIVE METABOLIC PANEL (03/19/2020 8:45 PM CDT) GLUCOSE 107(H) 70 - 99 MG/DL 03/19/2020 9:[address] [facility] BUN 28(H) 7 - 18 MG/DL 03/19/2020 9:[address] [facility] CREATININE S/P/B 2.27(H) 0.55 - 1.02 MG/DL 03/19/2020 9:19 PM [facility] SODIUM S/P/B 135(L) 136 - 145 MMOL/L 03/19/2020 9:19 PM [facility] POTASSIUM S/P/B 5.3(H) 3.5 - 5.1 MMOL/L 03/19/2020 9:19 PM [facility] CHLORIDE S/P/B 102 100 - 108 MMOL/L 03/19/2020 9:19 PM [facility] CO2 20.2(L) 21 - 32 MMOL/L 03/19/2020 9:19 PM [facility] CALCIUM S/P/B 8.4(L) 8.5 - 10.1 MG/DL 03/19/2020 9:19 PM [facility] BILIRUBIN TOTAL S/P/B 0.4 0.2 - 1.2 MG/DL 03/19/2020 9:19 PM [facility] TOTAL PROTEIN S/P/B 7.4 6.4 - 8.2 G/DL 03/19/2020 9:19 PM [facility] ALBUMIN S/P/B 2.5(L) 3.4 - 5.0 G/DL 03/19/2020 9:19 PM [facility] AST 21 15 - 37 U/L 03/19/2020 9:19 PM [facility] ALT 16 14 - 55 U/L 03/19/2020 9:19 PM [facility] ALKALINE PHOSPHATASE S/P/B 103 50 - 136 U/L 03/19/2020 9:19 PM [facility] ANION GAP 12.8 5 - 15 MMOL/L 03/19/2020 9:19 PM [facility] BUN CREATININE RATIO 12.3 6 - 26 03/19/2020 9:[address] [facility] A/G RATIO 0.5(L) 1.0 - 2.0 RATIO 03/19/2020 9:[address] [facility] EGFR NON-AFR. AMER. 20(L) >90 ML/MIN/1.7 3 M2 03/19/2020 9:[address] [facility] EGFR AFR. AMER. 24(L) >90 ML/MIN/1.7 3 M2 03/19/2020 9:[address] [facility] Comment: NOTE: eGFR is not calculated for patients <18 years of age. This is an estimated GFR (CKD EPI) and should not be used for calculating drug doses. 03/19/2020 8:45 PM CDT us Mahesh Nelson MD LABORATORY Final Resul t [facility] [address] [place] [address], [place] [phone] * (ABNORMAL) CBC W/DIFF AUTOMATED (03/19/2020 8:45 PM CDT) WBC 18.1(H) 4.4 - 11.0 x10'3/uL 03/19/2020 9:[address] [facility] RBC 3.78(L) 4.50 - 5.10 x10'6/uL 03/19/2020 9:[address] [facility] HGB 9.5(L) 12.3 - 15.3 G/DL 03/19/2020 9:[address] [facility] HCT 31.0(L) 35.9 - 44.6 % 03/19/2020 9:[address] [facility] MCV 82.0 80.0 - 96.0 FL 03/19/2020 9:[address] [facility] MCH 25.1(L) 25.3 - 30.9 PG 03/19/2020 9:[address] [facility] MCHC 30.6(L) 31.0 - 34.1 G/DL 03/19/2020 9:[address] [facility] RDW 16.0(H) 12.4 - 15.1 % 03/19/2020 9:[address] [facility] PLT 476(H) 151 - 353 x10'3/uL 03/19/2020 9:[address] [facility] MPV 8.7(L) 9.6 - 12.0 FL 03/19/2020 9:[address] [facility] SEG NEUTROPHILS 76(H) 42 - 72 % 0 9:[address] [facility] BANDS 2 % 03/19/2020 9:[address] [facility] LYMPHOCYTES 13(L) 15.8 - 45.0 % 03/19/2020 9:[address] [facility] MONOCYTES 9 5.7 - 12.5 % 03/19/2020 9:[address] [facility] ABS. NEUTROPHILS TOTAL 14.12(H) 1.40 - 6.00 x10'3/uL 03/19/2020 9:[address] [facility] ABS. LYMPHOCYTES 2.35 0.80 - 4.70 x10'3/uL 03/19/2020 9:[address] [facility] PLT MORPH. NORMAL 03/19/2020 9:[address] [facility] RBC MORPHOLOGY NORMAL 03/19/2020 9:[address] [facility] WBC MORPHOLOGY NORMAL 03/19/2020 9:[address] [facility] 03/19/2020 8:45 PM CDT us Mahesh Nelson MD LABORATORY Final Resul t [facility] [address] [place] [address], [place] [phone] documented in this encounter Visit Diagnoses Not [...] (Infusion Stop Time - Provider: Chika Hatfield, ELMO) vitamin B-12 (CYANOCOBALAMIN) tablet 1,000 [...] entered.) documented in this encounter Care Teams Circuit Walker Relationship Specialty Start Date End Date Jared Leyva MD PCP - General 08/28/11 07/16/22 documented as of this encounter
--- OUTSIDE RECORDS SUMMARY | 2024-07-15 17:19 | XMS_ITS | Encounter Summary ---
Author Organization [facility] Address [address] [place] [address] [place] [address] Care Team Providers Care Smash Piecer Name Role Phone Jared Abrams MD Primary Care Provider [phone] Encounter Details Date Type Department Care Team (Late st Contact Info) Description 02/11/2014 Abstract [facility] [address] [place] [address] Saji Vargas MD [address] [id number] Social History Tobacco Use Types Packs/Day Years [...] st Contact Info) Description 08/03/2024 2:00 PM QUARRY BOSS Appointment [facility] [address] [place] [address] Josué Cook MD [address] [address] documented as of this encounter Visit Diagnoses Diagnosis Osteoarthrosis involving lower leg documented in this encounter Care Teams Smash Piecer Relationship Specialty Start Date End Date Jared Abrams MD PCP - General 08/28/11 07/16/22 documented as of this encounter
--- OUTSIDE RECORDS SUMMARY | 2024-07-15 17:19 | XMS_ITS | Encounter Summary ---
Author Organization [facility] Address [address] [facility] [place] [address] [place] [address] Care Team Providers Care Tile And Mottle Supervisor Name Role Phone Jared Abrams MD Primary Care Provider [phone] Encounter Details Date Type Department Care Team (Late st Contact Info) Description 01/19/2014 Abstract [facility] [address] [place] [address] Jared Abrams MD [address] [place], [place] [phone] Social History Tobacco Use Types Packs/Day Years [...] st Contact Info) Description 08/03/2024 2:00 PM SPECIAL INVESTIGATOR Appointment [facility] [address] [place] [address] Josué Cook MD [facility] [address] documented as of this encounter Visit Diagnoses Diagnosis Pain in joint, lower leg documented in this encounter Care Teams Tile And Mottle Supervisor Relationship Specialty Start Date End Date Jared Abrams MD PCP - General 08/28/11 07/16/22 documented as of this encounter
--- OUTSIDE RECORDS SUMMARY | 2024-07-15 17:19 | XMS_ITS | Encounter Summary ---
Author Organization [facility] Address [address] [facility] [place] [address] [place] [address] Care Team Providers Care Mission Support Specialist Name Role Phone Jared Abrams MD Primary Care Provider [phone] Encounter Details Date Type Department Care Team (Late Contact Info) Description 12/23/2019 Orders Only [facility] [address] [place] [address] Jared Abrams MD [address] [place] [address] Social History Tobacco Use Types Packs/Day Years [...] (Late Contact Info) Description 08/03/2024 2:00 PM GROUND TRANSPORTATION OPERATOR Appointment [facility] [address] [place] [address] Josué Cook MD [address] [facility] [address] [place] [address] documented as of this encounter Results * O&P CONC&SMEAR TO REF LAB (12/23/2019 2:50 PM CDT) SPECIMEN SOURCE STOOL 0 2:47 PM CDT [facility] O & P EXAMINATION (STOOL) REPORT 12/28/2019 4:36 PM CDT Independent IP [facility] Comment: Ova and Parasites, Concentrate and Permanent Smear SOURCE : STOOL Test not performed. Transport device is not acceptable for test requested. Test Performed by [employer] [facility], [address] [place] [address] Gamal Gao M.D., Ph.D., Director of Laboratories , [facility] [id number] STOOL SPECIMEN / Unknown 12/23/2019 2:50 PM CDT Jared Abrams MD MICROBIOLOGY - GENERAL ORDERAB LES Final Result Independent IP [address] , [place] [phone] [facility] [address] [place] [address], [place] [phone] * CLOSTRIDIUM DIFFICILE (12/23/2019 2:50 PM CDT) Pathologist [facility] MOLECULAR ASSAY NEGATIVE NEGATIVE 12/23/2019 4:15 PM CDT [facility] STOOL SPECIMEN / Unknown 12/23/2019 2:50 PM CDT Jared Abrams MD BODY FLUIDS AND STOOLS ORDERAB LES Final Result [facility] [address] [place] [address], [place] [phone] * Stool Culture (12/23/2019 2:49 PM CDT) SPEC DESCRIPTION STOOL 12/23/2019 2:47 PM CDT [facility] SPECIAL REQUESTS NO SPECIAL REQUEST 12/23/2019 2:47 PM CDT [facility] CULTURE RESULT NEGATIVE FOR SHIGA TOXIN 1 AND 2 12/29/2019 10:46 AM CDT [facility] CULTURE RESULT NO ENTERIC PATHOGENS ISOLATED 12/29/2019 10:46 AM CDT [facility] CULTURE RESULT NOTE: STOOL CULTURES ARE ROUTINELY SCREENED FOR SALMONELLA,SH IGELLA,YERSIN IA,AEROMONAS, PLESIOMONAS,C AMPYLOBA CTER,E.COLI 0157,OVERGROW THS OF S.AUREUS,YEAS T AND P. AERUGINOSA 12/29/2019 10:46 AM CDT [facility] Stool specimen (specimen) STOOL SPECIMEN / Unknown 12/23/2019 2:49 PM CDT 12/23/2019 2:50 PM CDT us Jared Abrams MD MICROBIOLOGY - GENERAL ORDERAB LES Final Result Performing Organization Address [facility]/State/[facility] Co de Phone Number [facility] [address] [place] [address], [place] [phone] [facility] [address] [place] [address], [place] [phone] documented in this encounter Visit Diagnoses Diagnosis Diarrhea of presumed infectious origin- Primary documented in this encounter Care Teams Mission Support Specialist Relationship Specialty Start Date End Date Jared Abrams MD PCP - General 08/28/11 07/16/22 documented as of this encounter
--- OUTSIDE RECORDS SUMMARY | 2024-07-15 17:19 | XMS_ITS | Encounter Summary ---
Author Organization [facility] Address [address] [place] [address] [place] [address] Care Team Providers Care State Farm Agent Team Member Name Role Phone Jared Abrams MD Primary Care Provider [phone] Encounter Details Date Type Department Care Team (Late st Contact Info) Description 03/22/2015 Abstract [facility] [address] [place] [address] Jared Abrams MD [address] [place] [address] Social History Tobacco Use Types Packs/Day Years [...] st Contact Info) Description 08/03/2024 2:00 PM RECYCLING SPECIALIST Appointment [facility] [address] [place] [address] Josué Cook MD [address] [place] [address] documented as of this encounter Visit Diagnoses Diagnosis Other seborrheic keratosis documented in this encounter Care Teams State Farm Agent Team Member Relationship Specialty Start Date End Date Jared Abrams MD PCP - General 08/28/11 07/16/22 documented as of this encounter
--- OUTSIDE RECORDS SUMMARY | 2024-07-15 17:19 | XMS_ITS | Encounter Summary ---
Author Organization [facility] Address [address] [facility] [place] [address] [place] [address] Care Team Providers Care Brim Raiser Name Role Phone Jared Abrams MD Primary Care Provider [phone] Encounter Details Date Type Department Care Team [...] st Contact Info) Description 08/03/2024 2:00 PM TACTICAL INTELLIGENCE OFFICER Appointment [facility] [address] [place] [address] Josué Cook MD [address] [address] documented as of this encounter Visit Diagnoses Not on filedocumented in this encounter Care Teams Brim Raiser Relationship Specialty Start Date End Date Jared Abrams MD PCP - General 08/28/11 07/16/22 documented as of this encounter
--- OUTSIDE RECORDS SUMMARY | 2024-07-15 17:19 | XMS_ITS | Encounter Summary ---
Author Organization [facility] Address [address] [facility] [place] [address] [place] [address] Care Team Providers Care Yoke Setter Name Role Phone Jared Abrams MD Primary Care Provider [phone] Reason for Visit * Auth/Cert Specialty Diagnoses / Procedures Referred By Angel braswell Referred To Contact Diagnoses Colitis JENNY (acute kidney injury) ([facility]) Colitis Referral ID Status Reason Start Date Expiration Date Visits Re quested Visits Authorized [id number] 1 1 Encounter Details Date Type Department Care Team (Late st Contact Info) Description 03/22/2020 10:07 AM CDT Anesthesia Event [facility] [address] [place] [address] Rochelle García CRNA [address] [place] [address] Anesthesia Record Procedure Summary Procedure Name Responsible Anesthesiologist Anesthesia Start Time Anesthesia Stop Time colonoscopy with biopsies Rochelle Garcaí CRNA 03/22/20 1007 03/22/20 1026 Events Date Time Event Comment 03/22/2020 0931 0932 AN CHAR PULLER Prepped 1007 An Start Patient ID and [...] st Contact Info) Description 08/03/2024 2:00 PM FAMILY SERVICE CASEWORKER Appointment [address] [address] Josué Cook MD [address] [facility] [address] [place] [address] documented as of this encounter Goals Goal [...] mg documented in this encounter Care Teams Yoke Setter Relationship Specialty Start Date End Date Jared Abrams MD PCP - General 08/28/11 07/16/22 documented as of this encounter
--- OUTSIDE RECORDS SUMMARY | 2024-07-15 17:19 | XMS_ITS | Encounter Summary ---
Author Organization [facility] Address [address] [facility] [place] [address] [place] [address] Care Team Providers Care Microfilm Clerk Name Role Phone Jared Abrams MD Primary Care Provider [phone] Encounter Details Date Type Department Care Team (Late st Contact Info) Description 07/25/2016 Abstract [facility] [address] [place] [address] Jared Abrams MD [address] [place] [address] Social History Tobacco Use Types Packs/Day Years [...] st Contact Info) Description 08/03/2024 2:00 PM LEGAL REFEREE Appointment [facility] [address] [place] [address] Josué Cook MD [address] [place] [address] documented as of this encounter Visit Diagnoses Diagnosis Encounter for screening mammogram for malignant neoplasm of breast Other screening mammogram documented in this encounter Care Teams Microfilm Clerk Relationship Specialty Start Date End Date Jared Abrams MD PCP - General 08/28/11 07/16/22 documented as of this encounter
--- OUTSIDE RECORDS SUMMARY | 2024-07-15 17:19 | XMS_ITS | Encounter Summary ---
Author Organization [facility] Address [address] [place] [address] [place] [address] Care Team Providers Care Parking Enforcement Officer Name Role Phone Jared Abrams MD Primary Care Provider [phone] Encounter Details Date Type Department Care Team (Latest Contact Info) Description 12/23/2019 2:45 PM CDT - 12/23/2019 11:59 PM CDT Hospital Encounter [facility] [address] [place] [address] Jared Abrams MD [address] [place], [place] [id number] Discharge Disposition: Home or Self Care (Routine [...] st Contact Info) Description 08/03/2024 2:00 PM KELP OR SEAGRASS GATHERER Appointment [facility] [address] [place] [address] Josué Cook MD [address] [address] documented as of this encounter Procedures Procedure [...] ASSAY NEGATIVE NEGATIVE 12/23/2019 4:15 PM CDT [facility] STOOL SPECIMEN / Unknown 12/23/2019 2:50 PM CDT Jared Abrams MD BODY FLUIDS AND STOOLS ORDERAB LES Final Result [facility] [address] [place] [address], [place] [phone] * O&P CONC&SMEAR TO REF LAB (12/23/2019 2:50 PM CDT) Pathologist [facility] SPECIMEN SOURCE STOOL 0 2:47 PM CDT [facility] O & P EXAMINATION (STOOL) REPORT 12/28/2019 4:[address] [facility] Comment: Ova and Parasites, Concentrate and Permanent Smear SOURCE : STOOL Test not performed. Transport device is not acceptable for test requested. Test Performed by [email or web address], [email or web address] [facility], [address] [place] [address] Gamal Gao M.D., Ph.D., Director of Laboratories , CLIA [id number] STOOL SPECIMEN / Unknown 12/23/2019 2:50 PM CDT Jared Abrams MD MICROBIOLOGY - GENERAL ORDERAB LES Final Result [facility] [address] [place] [address], [place] [phone] [facility] [address] [place] [address], [place] [phone] * Stool Culture (12/23/2019 2:49 PM CDT) SPEC DESCRIPTION STOOL 12/23/2019 2:47 PM CDT [facility] SPECIAL REQUESTS NO SPECIAL REQUEST 12/23/2019 2:47 PM CDT [facility] CULTURE RESULT NEGATIVE FOR SHIGA TOXIN 1 AND 2 12/29/2019 10:46 AM CDT [facility] CULTURE RESULT NO ENTERIC PATHOGENS ISOLATED 12/29/2019 10:46 AM CDT [facility] CULTURE RESULT NOTE: STOOL CULTURES ARE ROUTINELY SCREENED FOR SALMONELLA,SH IGELLA,YERSIN IA,AEROMONAS, PLESIOMONAS,C AMPYLOBA CTER,E.COLI 0157,OVERGROW THS OF S.AUREUS,YEAS T AND P. AERUGINOSA 12/29/2019 10:46 AM CDT [facility] Stool specimen (specimen) STOOL SPECIMEN / Unknown 12/23/2019 2:49 PM CDT 12/23/2019 2:50 PM CDT Jared Abrams MD MICROBIOLOGY - GENERAL ORDERAB LES Final Result [facility] [address] [place] [address], [place] [phone] [facility] [address] [place] [address], [place] [phone] documented in this encounter Visit Diagnoses Diagnosis Diarrhea of presumed infectious origin documented in this encounter Care Teams Parking Enforcement Officer Relationship Specialty Start Date End Date Jared Abrams MD PCP - General 08/28/11 07/16/22 documented as of this encounter
--- OUTSIDE RECORDS SUMMARY | 2024-07-15 17:19 | XMS_ITS | Encounter Summary ---
Author Organization [facility] Address [address] [facility] [place] [address] [place] [address] Care Team Providers Care Senior Java Programmer Name Role Phone Jared Abrams MD Primary Care Provider [phone] Encounter Details Date Type Department Care Team (Late st Contact Info) Description 02/08/2014 Abstract [facility] [address] [place] [address] Social History Tobacco Use Types Packs/Day Years [...] Contact Info) Description 08/03/2024 2:00 PM ASSISTANT DIRECTOR OF NURSING Appointment [facility] [address] [place] [address] Josué Cook MD [address] [facility] [address] [place] [address] documented as of this encounter Visit Diagnoses Diagnosis Pre-operative examination Preoperative examination, unspecified documented in this encounter Care Teams Senior Java Programmer Relationship Specialty Start Date End Date Jared Abrams MD PCP - General 08/28/11 07/16/22 documented as of this encounter
--- OUTSIDE RECORDS SUMMARY | 2024-07-15 17:19 | XMS_ITS | Encounter Summary ---
Author Organization [facility] Address [address] [facility] [place] [address] [place] [address] Care Team Providers Care Workforce Management Coordinator Name Role Phone Jared Leyva MD Primary Care Provider [phone] Reason for Referral * Imaging (Urgent) - Closed Specialty Diagnoses / Procedures Referred By Angel braswell Referred To Contact RADIOLOGY Procedures US RETROPERITONEAL COMP US RENAL ABDOMEN DUPLEX COMP Cara Alvarado APRN [address] [place] [address] Phone: tel: [phone] fax: Referral ID Status Reason Start Date Expiration Date Visits Re quested Visits Authorized [id number] Closed 03/20/2020 04/20/2021 1 1 * Surgical (Routine) - Closed Specialty Diagnoses / Procedures Referred By Angel braswell Referred To Contact Procedures Case request operating room: COLONOSCOPY DIAGNOSTIC WITH/WITHOUT SPECIMEN BRUSH/WASH Indigo Parsons MD [address] [address] Phone: tel: fax: Referral ID Status Reason Start Date Expiration Date Visits Re quested Visits Authorized [id number] Closed 03/21/2020 04/21/2021 1 1 * Imaging (Emergency) - Closed Specialty Diagnoses / Procedures Referred By Contclemencia t Referred To Contact RADIOLOGY Procedures CT ABD+PEL WO CON Mahesh Nelson MD Phone: tel: fax: Referral ID Status Reason Start Date Expiration Date Visits Re quested Visits Authorized [id number] Closed 03/19/2020 04/19/2021 1 1 Reason for Visit * Reason Comments Diarrhea * Auth/Cert Specialty Diagnoses / Procedures Referred By Contclemencia t Referred To Contact Diagnoses Colitis JENNY (acute kidney injury) ([facility]/HCC) Colitis Referral ID Status Reason Start Date Expiration Date Visits Re quested Visits Authorized [id number] 1 1 Encounter Details Date Type Department Care Team (Late st Contact Info) Description 03/19/2020 8:33 PM CDT - 03/23/2020 2:40 PM CDT Hospital Encounter [facility] Med/Surg [address] [place], [place] [phone] Mahesh Nelson MD [address] [place] [address] [phone] Durga Parekh MD [address] [place] [address] [phone] Cara Alvarado APRN [address] [place], [place] [phone] (Work) Pollo Hogue APRN [place], [place] [id number] Madison Aaron MD [place], [place] [id number] [phone] (Work) Diarrhea Discharge Disposition: Home or [...] No results for input(s): PH, PCO2, PO2, [id number], BICARBWB, BASEDEFICIT, BASEEXCESS in the orkf108 hours. No results found for this or any previous visit. Radiology Reports : Results for orders placed or performed during the hospital encounter of 03/19/20 ECG 12 lead ?? Narrative ?? [facility] Test Date: 2020-03-19 Pat Name: RADHA ALLEN Department: Room: 120 Gender: Female Insurance Agency Manager: : 1945 Requested By: MAHESH NELSON Order Number: [id number] Reading MD: Keven Gunter Measurements Intervals [place] Rate: 78 P: 53 DC: 137 QRS: 22 QRSD: 87 T: 12 QT: 355 QTc: 405 Interpretive Statements SINUS RHYTHM LOW QRS VOLTAGE IN PRECORDIAL LEADS No previous ECG available for comparison ?? CT ABD+PEL WO CON [[id number]] Collected: 03/20/20825 ?? Updated: 03/20/20834 Narrative: ?? [...] Your Medications These medications were sent to [id number] - [place], [place] - [address] AT [place] [address] [address] [facility] [address] ?? ferrous sulfate EC 324 (65 Fe) [...] Care Everywhere. * Ulcerative Colitis Discharge Instructions (H[place] Konger) * Diet for Ulcerative Colitis (H[place] Konger) documented in this encounter Medications at Time [...] Mac RN - 03/23/2020 11:11 AM CDT [facility] for discharge planning @1100 with HOSPITALIST, COMPLAINT MANAGER, CM, UR, PASTORAL CARE, PHARMACY, CARDIOPULMONARY, DONOR RELATIONS MANAGER, HH. F/u with Dr. Parsons (GI) [...] 1 g Intravenous Q24H Darah R Dodt, INTRAVENOUS THERAPY NURSE 1 g at 03/22/20 1053 ??? enoxaparin (LOVENOX) 40 MG/0.4ML syringe 40 mg 40 mg Subcutaneous Q24H Darah R Kristent, INTRAVENOUS THERAPY NURSE Stopped at 03/22/20 0918 ??? HYDROcodone-acetaminophen (NORCO) 5-325 MG tablet 1 tablet 1 tablet Oral Q4H PRN Madison Aaron MD ??? lactated ringers infusion Intravenous Continuous Indigo Parsons MD Stopped at 03/22/20 1045 ??? methylPREDNISolone sodium succinate (SOLU-Medrol) injection 40 mg 40 mg Intravenous Daily DarahR John, INTRAVENOUS THERAPY NURSE 40 mg at 03/22/20 1438 ??? metroNIDAZOLE (FLAGYL) IVPB 500 mg 500 mg Intravenous Q8H Darmaribel R Kristent, INTRAVENOUS THERAPY NURSE Stopped at 03/22/20 1153 ??? morphine injection [...] 0.9% infusion Intravenous Continuous Darah R Kristent, INTRAVENOUS THERAPY NURSE 100 mL/hr at 03/22/20 1053 ??? [START [...] encounter of 03/19/20 ECG 12 lead Narrative [facility] Test Date: 2020-03-19 Pat Name: RADHA ALLEN Department: Room: 120 Gender: Female Insurance Agency Manager: : 1945 Requested By: MAHESH NELSON Order Number: [id number] Reading MD: Keven Gunter Measurements Intervals [place] Rate: 78 P: 53 DC: 137 QRS: 22 QRSD: 87 T: 12 QT: 355 QTc: 405 Interpretive Statements SINUS RHYTHM LOW QRS VOLTAGE IN PRECORDIAL LEADS No previous ECG available for comparison CT ABD+PEL WO CON [[id number]] Collected: 03/20/20825 ?? Updated: 03/20/20834 Narrative: ?? [...] Lovenox - Code status: Full POLLO HOGUE, INTRAVENOUS THERAPY NURSE 03/22/2020 Patient was seen and examined separately [...] CASE MANAGEMENT, UR, NURSING, PT, OT, CARDIOPULMONARY, DONOR RELATIONS MANAGER, HOSPITALIST HOME HEALTH,PASTORAL CARE, PHARMACY Meeting held at 1100. DONOR RELATIONS MANAGER REPORTS BLOOD CULTURE POSITIVE. WILL NOT [...] 0.9 % 50 mL IVPB 3.375 g [id number] Durga Parekh MD 12.5 mL/hr at 03/21/20 [...] 03/19/[address] [facility] Test Date: 2020-03-19 Pat Name: RADHA ALLEN Department: Room: 120 Gender: Female Insurance Agency Manager: : 1945 Requested By: MAHESH NELSON Order Number: [id number] Reading MD: Keven Gunter Measurements Intervals [place] Rate: 78 P: 53 DC: 137 QRS: 22 QRSD: 87 T: 12 QT: 355 QTc: 405 Interpretive Statements SINUS RHYTHM LOW QRS VOLTAGE IN PRECORDIAL LEADS No previous ECG available for comparison CT ABD+PEL WO CON [[id number]] Collected: 03/20/20825 ?? Updated: 03/20/20834 Narrative: ?? [...] case management, UR, nursing, PT, OT, cardiopulmonary, DONOR RELATIONS MANAGER, Hospitalist, Pastoral Care, and Pharmacy. Meeting held at 11:00. Plan for colonoscopy tomorrow. * Vannessa Blackwell RN - 03/20/2020 2:10 PM CDT [facility] CONFERENCE: TEAM ATTENDANCE: CASE MANAGEMENT, UR, NURSING, PT, OT, CARDIOPULMONARY, DONOR RELATIONS MANAGER, HOSPITALIST HOME HEALTH,PASTORAL CARE, PHARMACY Meeting [...] Assistance No Behavior Oriented;Cooperative Communication Talks;Understands speaking;Understands [place]er Socioeconomic Needs Caregiver Needed No At Risk [...] of major lifestyle changes, including change in residential living environment No Family concerns/conflicts No Inadequate social and/or financial supports No Abuse and/or neglect of elder, adult or child No Psychiatric and/or substance abuse issues affecting current hospitalization No Homelessness with lack of safe discharge environment No Need for guardianship petition No Chaptered patient No LIVES ALONE. DAUGHTER IN AREA AND ASSISTS NEEDED. PATIENT IS VERY ACTIVE WITH [employer]. DENIES NEED FOR HOME HEALTH ARE OTHER SERVICES documented in this encounter H&P Notes * Cara Alvarado, INTRAVENOUS THERAPY NURSE - 03/20/2020 9:10 AM CDT Hospitalist History [...] file Gets together: Not on file Attends jainism service: Not on file Active member of [...] & Other Studies CT ABD+PEL WO CON [[id number]] Collected: 03/20/20825 Updated: 03/20/20834 Narrative: ?? IMAGING [...] encounter of 03/19/20 ECG 12 lead Narrative [facility] Test Date: 2020-03-19 Pat Name: RADHA ALLEN Department: Room: 120 Gender: Female Insurance Agency Manager: : 1945 Requested By: MAHESH NELSON Order Number: [id number] Reading MD: Keven Gunter Measurements Intervals [place] Rate: 78 P: 53 DC: 137 QRS: 22 QRSD: 87 T: 12 [...] from [place]. While there she had immersion uatsdin. She noticed watery stools within a few [...] file Gets together: Not on file Attends jainism service: Not on file Active member of [...] Parsons MD - 03/22/2020 10:27 AM CDT [facility] OpNote colonoscopy with biopsies Procedure Note Radha Allen 03/19/2020 - 03/22/2020 1142 Procedure(s) (LRB): colonoscopy with biopsies (N/A) Surgeon(s): Indigo Parsons MD Staff: Circulating Nurse 1: Miroslava Henderson RN calender worker helper: Jody Francisco, SENIOR CARE MANAGER Anesthesia: * No anesthesia type entered * SKATES OPERATOR: Rochelle García CRNA Pre-Op Diagnosis: diarrhea [...] encounter of 03/19/20 ECG 12 lead Narrative [facility] Test Date: 2020-03-19 Pat Name: RADHA ALLEN Department: Room: EXAM 101 Gender: Female Insurance Agency Manager: : 1945 Requested By: MAHESH NELSON Order Number: [id number] Reading MD: Measurements Intervals [place] Rate: 78 P: 53 DC: 137 QRS: 22 QRSD: 87 T: 12 [...] IVPB (3.375 g Intravenous New Bag 03/19/20 5382) piperacillin-tazobactam (ZOSYN) 3.375 g in sodium chloride [...] Colitis Disposition: Admit Mahesh Nelson MD 03/19/20 0273 * Kaitlynn Amin RN - 03/19/2020 8:35 PM CDT Patient arrived via POV from home with c/o diarrhea, 5-6 loose stools in the past 24 hours, since September. Patient returned home from [facility] and began having diarrhea. Has had stool samples, which werenegative. Patient c/o generalized weakness and family reports that she appears pale. Also, c/o hemorroids. documented in this encounter Plan of Treatment Upcoming Encounters Date Type Department Care Team (Late st Contact Info) Description 08/03/2024 2:00 PM MASTER [employer]AL PARACHUTIST Appointment [facility] [address] [place] [address] Josué Cook MD [address] [facility] [address] [facility] [address] Pending Results Name Type Priority Associated Diagnoses Date /Time Blood Bank - Specimen Hold Blood Bank Routine 03/19/2020 8:45 PM CDT documented as of this encounter Goals Goal Patient Goal Type Associated Problems Recent Progress Patient-Stated? Author HOME TO [facility] Vannessa Light RN documented as [...] BASIC METABOLIC PANEL (03/30/2020 1:30 PM CDT) [facility] GLUCOSE 144(H) 70 - 99 MG/DL 03/30/2020 1:56 PM CDT [facility] BUN 12 7 - 18 MG/DL 03/30/2020 1:56 PM CDT [facility] CREATININE S/P/B 0.95 0.55 - 1.02 MG/DL 03/30/2020 1:56 PM CDT [facility] SODIUM S/P/B 141 136 - 145 MMOL/L 03/30/2020 1:56 PM CDT [facility] POTASSIUM S/P/B 3.4(L) 3.5 - 5.1 MMOL/L 03/30/2020 1:56 PM T [facility] CHLORIDE S/P/B 104 100 - 108 MMOL/L 03/30/2020 1:56 PM T [facility] CO2 28.8 21 - 32 MMOL/L 03/30/2020 1:56 PM T [facility] CALCIUM S/P/B 8.9 8.5 - 10.1 MG/DL 03/30/2020 1:56 PM T [facility] ANION GAP 8.2 5 - 15 MMOL/L 03/30/2020 1:56 PM T [facility] BUN CREATININE RATIO 12.6 6 - 26 03/30/2020 1:56 PM T [facility] EGFR NON-AFR. AMER. 58(L) >90 ML/MIN/1.7 3 M2 03/30/2020 1:56 PM T [facility] EGFR AFR. AMER. 67(L) >90 ML/MIN/1.7 3 M2 03/30/2020 1:56 PM CDT [facility] Comment: NOTE: eGFR is not calculated for patients <18 years of age. This is an estimated GFR (CKD EPI) and should not be used for calculating drug doses. 03/30/2020 1:30 PM CDT Obdulio Darian Hogue INTRAVENOUS THERAPY NURSE LABORATORY Final Result [facility] [address] [place] [address], [place] [phone] * (ABNORMAL) CBC W/DIFF AUTOMATED (03/30/2020 1:30 PM CDT) WBC 12.7(H) 4.4 - 11.0 x10'3/uL 03/30/2020 1:45 PM CDT [facility] RBC 3.58(L) 4.50 - 5.10 x10'6/uL 03/30/2020 1:45 PM CDT [facility] HGB 9.2(L) 12.3 - 15.3 G/DL 03/30/2020 1:45 PM CDT [facility] HCT 30.1(L) 35.9 - 44.6 % 03/30/2020 1:45 PM CDT [facility] MCV 84.1 80.0 - 96.0 FL 03/30/2020 1:45 PM CDT [facility] MCH 25.7 25.3 - 30.9 PG 03/30/2020 1:45 PM CDT [facility] MCHC 30.6(L) 31.0 - 34.1 G/DL 03/30/2020 1:45 PM CDT [facility] RDW 20.0(H) 12.4 - 15.1 % 03/30/2020 1:45 PM CDT [facility] PLT 372(H) 151 - 353 x10'3/uL 03/30/2020 1:45 PM CDT [facility] MPV 8.6(L) 9.6 - 12.0 FL 03/30/2020 1:45 PM CDT [facility] SEG NEUTROPHILS 88(H) 42 - 72 % 0 1:59 PM CDT [facility] LYMPHOCYTES 9(L) 15.8 - 45.0 % 03/30/2020 1:59 PM CDT [facility] MONOCYTES 3(L) 5.7 - 12.5 % 03/30/2020 1:59 PM CDT [facility] ABS. NEUTROPHILS TOTAL 11.18(H) 1.40 - 6.00 x10'3/uL 03/30/2020 1:59 PM CDT [facility] ABS. LYMPHOCYTES 1.14 0.80 - 4.70 x10'3/uL 03/30/2020 1:59 PM CDT [facility] PLT MORPH. NORMAL 03/30/2020 1:59 PM CDT [facility] RBC MORPHOLOGY SLIGHT 03/30/2020 1:59 PM CDT [facility] Comment:ANISOCYTOSIS WBC MORPHOLOGY NORMAL 03/30/2020 1:59 PM CDT [facility] 03/30/2020 1:30 PM CDT us Pollo Hogue APRN LABORATORY Edited Result - Final [facility] [address] [place] [address], * (ABNORMAL) BASIC METABOLIC PANEL (03/23/2020 6:20 AM CDT) GLUCOSE 103(H) 70 - 99 MG/DL 03/23/2020 6:55 AM [facility] BUN 3(L) 7 - 18 MG/DL 03/23/2020 6:55 AM [facility] CREATININE S/P/B 1.07(H) 0.55 - 1.02 MG/DL 03/23/2020 6:55 AM [facility] SODIUM S/P/B 143 136 - 145 MMOL/L 03/23/2020 6:55 AM [facility] POTASSIUM S/P/B 3.7 3.5 - 5.1 MMOL/L 03/23/2020 6:55 AM [facility] CHLORIDE S/P/B 111(H) 100 - 108 MMOL/L 03/23/2020 6:55 AM [facility] CO2 23.4 21 - 32 MMOL/L 03/23/2020 6:55 AM [facility] CALCIUM S/P/B 7.1(L) 8.5 - 10.1 MG/DL 03/23/2020 6:55 AM [facility] ANION GAP 8.6 5 - 15 MMOL/L 03/23/2020 6:55 AM [facility] BUN CREATININE RATIO 2.8(L) 6 - 26 03/23/2020 6:55 AM [facility] EGFR NON-AFR. AMER. 50(L) >90 ML/MIN/1.7 3 M2 03/23/2020 6:55 AM [facility] EGFR AFR. AMER. 58(L) >90 ML/MIN/1.7 3 M2 03/23/2020 6:55 AM [facility] Comment: NOTE: eGFR is not calculated for patients <18 years of age. This is an estimated GFR (CKD EPI) and should not be used for calculating drug doses. 03/23/2020 6:20 AM CDT Pollo Farmer John INTRAVENOUS THERAPY NURSE LABORATORY Final Result [facility] [address] [place] [address], [place] [phone] * (ABNORMAL) CBC W/DIFF AUTOMATED (03/23/2020 6:20 AM CDT) WBC 8.6 4.4 - 11.0 x10'3/uL 03/23/2020 6:44 AM CDT [facility] RBC 2.97(L) 4.50 - 5.10 x10'6/uL 03/23/2020 6:44 AM CDT [facility] HGB 7.7(L) 12.3 - 15.3 G/DL 03/23/2020 6:44 AM CDT [facility] HCT 24.1(L) 35.9 - 44.6 % 03/23/2020 6:44 AM CDT [facility] MCV 81.1 80.0 - 96.0 FL 03/23/2020 6:44 AM CDT [facility] MCH 25.9 25.3 - 30.9 PG 03/23/2020 6:44 AM CDT [facility] MCHC 32.0 31.0 - 34.1 G/DL 03/23/2020 6:44 AM CDT [facility] RDW 16.6(H) 12.4 - 15.1 % 03/23/2020 6:44 AM CDT [facility] PLT 342 151 - 353 x10'3/uL 03/23/2020 6:44 AM CDT [facility] MPV 8.4(L) 9.6 - 12.0 FL 03/23/2020 6:44 AM CDT [facility] RBC MORPHOLOGY NORMAL 03/23/2020 6:44 AM CDT [facility] PLT MORPH. NORMAL 03/23/2020 6:44 AM CDT [facility] WBC MORPHOLOGY NORMAL 03/23/2020 6:44 AM CDT [facility] LYMPHOCYTES % 27.2 15.8 - 45.0 % 03/23/2020 6:44 AM CDT [facility] NEUTROPHILS % 56.9 42.1 - 71.9 % 03/23/2020 6:44 AM CDT [facility] MONOCYTES % 11.2 5.7 - 12.5 % 03/23/2020 6:44 AM CDT [facility] EOSINOPHILS 0.2 0.0 - 5.6 % 03/23/2020 6:44 AM CDT [facility] BASOPHILS 0.2 0.0 - 1.3 % 03/23/2020 6:44 AM CDT [facility] ABS. NEUTROPHILS TOTAL 4.91 1.40 - 6.00 x10'3/uL 03/23/2020 6:44 AM CDT [facility] IMMATURE GRANS % 4.3(H) 0.0 - 0.5 % 03/23/2020 6:44 AM CDT [facility] ABS. LYMPHOCYTES 2.35 0.80 - 4.70 x10'3/uL 03/23/2020 6:44 AM T [facility] 03/23/2020 6:20 AM CDT us Pollo Houge INTRAVENOUS THERAPY NURSE LABORATORY Final Result [facility] [address] [place] [address], * (ABNORMAL) POCT glucose (03/22/2020 7:56 PM CDT) GLUCOSE POC 175(H) 70 - 110 mg/dL 03/22/2020 9:10 PM CDT [facility] 03/22/2020 7:56 PM CDT Pollo Hogue INTRAVENOUS THERAPY NURSE POCT ORDERABLES - DEVICE Final Result Performing Organization Address [facility] Co de Phone Number [facility] [address] [place] [address], [place] [phone] * CULTURE, BACTERIA, BLOOD (03/22/2020 11:57 AM CDT) SPEC DESCRIPTION BLOOD 03/22/2020 9:30 AM CDT [facility] SPECIAL REQUESTS NO SPECIAL REQUEST 03/22/2020 9:30 AM CDT [facility] CULTURE RESULT NO GROWTH 5 DAYS 03/27/2020 2:05 PM CDT [facility] BLOOD SPECIMEN OBTAINED FOR BLOOD CULTURE / Unknown 03/22/2020 11:57 AM CDT 03/22/2020 12:07 PM CDT Pollo Hogue APRN MICROBIOLOGY - GENERAL ORDERAB LES Final Result Performing Organization Address [facility] Co de Phone Number [facility] [address] [place] [address], [place] [phone] [facility] [address] [place] [address], [place] [phone] * CULTURE, BACTERIA, BLOOD (03/22/2020 11:57 AM CDT) SPEC DESCRIPTION BLOOD 03/22/2020 9:30 AM CDT [facility] SPECIAL REQUESTS NO SPECIAL REQUEST 03/22/2020 9:30 AM CDT [facility] CULTURE RESULT NO GROWTH 5 DAYS 03/27/2020 2:05 PM CDT [facility] BLOOD SPECIMEN OBTAINED FOR BLOOD CULTURE / Unknown 03/22/2020 11:57 AM CDT 03/22/2020 12:07 PM CDT Pollo Farmer John INTRAVENOUS THERAPY NURSE MICROBIOLOGY - GENERAL ORDERAB LES Final Result Performing Organization Address City/State/[facility] Co de Phone Number [facility] [address] [place] [address], [place] [phone] [facility] [address] [place] [address], [place] [phone] * Pathology (03/22/2020 10:20 AM CDT) Tissue specimen (specimen) COLON STRUCTURE / Unknown 03/22/2020 10:20 AM CDT Tissue specimen (specimen) COLON STRUCTURE / Unknown 03/22/2020 10:22 AM CDT Tissue specimen (specimen) SPECIMEN FROM RECTUM / Unknown 03/22/2020 10:24 AM CDT Narrative [facility] - 03/23/2020 5:19 PM CDT [facility] Date of Service: ??03/22/2020 Preoperative Diagnosis: ??Diarrhea [...] submitted entirely in block C. CPT Code: ??24538 x3 D: ??03/22/2020 02:17 PM #[id number] T: ??03/22/2020 04:47 PM /NTS A copy of this report has been sent to: [facility] [id number] PATHOLOGIC DIAGNOSIS: Right colon, colonoscopy with biopsies: [...] chronic ulcerative colitis. D: ??03/23/2020 04:21 PM #[id number] T: ??03/23/2020 05:09 PM /NTS Indigo Parsons MD PATHOLOGY/CYTOLOGY ORDERABLES Fi nal Result [facility] [address] [place] [address], * (ABNORMAL) BASIC METABOLIC PANEL (03/22/2020 6:55 AM CDT) GLUCOSE 88 70 - 99 MG/DL 03/22/2020 8:34 AM CDT [facility] BUN 5(L) 7 - 18 MG/DL 03/22/2020 8:34 AM CDT [facility] CREATININE S/P/B 0.82 0.55 - 1.02 MG/DL 03/22/2020 8:34 AM CDT [facility] SODIUM S/P/B 144 136 - 145 MMOL/L 03/22/2020 8:34 AM CDT [facility] POTASSIUM S/P/B 4.1 3.5 - 5.1 MMOL/L 03/22/2020 8:34 AM CDT [facility] CHLORIDE S/P/B 112(H) 100 - 108 MMOL/L 03/22/2020 8:34 AM CDT [facility] CO2 24.4 21 - 32 MMOL/L 03/22/2020 8:34 AM CDT [facility] CALCIUM S/P/B 7.0(L) 8.5 - 10.1 MG/DL 03/22/2020 8:34 AM CDT [facility] ANION GAP 7.6 5 - 15 MMOL/L 03/22/2020 8:34 AM T [facility] BUN CREATININE RATIO 6.1 03/22/2020 8:34 AM T [facility] EGFR NON-AFR. AMER. 70(L) >90 ML/MIN/1.7 3 M2 03/22/2020 8:34 AM T [facility] EGFR AFR. AMER. 81(L) >90 ML/MIN/1.7 3 M2 03/22/2020 8:34 AM T [facility] Comment: NOTE: eGFR is not calculated for patients <18 years of age. This is an estimated GFR (CKD EPI) and should not be used for calculating drug doses. 03/22/2020 6:55 AM CDT Pollo Hogue APRN LABORATORY Final Result [facility] [address] [place] [address], [place] [phone] * (ABNORMAL) CBC W/DIFF AUTOMATED (03/22/2020 6:55 AM CDT) WBC 6.6 4.4 - 11.0 x10'3/uL 03/22/2020 7:14 AM CDT [facility] RBC 3.12(L) 4.50 - 5.10 x10'6/uL 03/22/2020 7:14 AM CDT [facility] HGB 7.8(L) 12.3 - 15.3 G/DL 03/22/2020 7:14 AM T [facility] HCT 25.2(L) 35.9 - 44.6 % 03/22/2020 7:14 AM T [facility] MCV 80.8 80.0 - 96.0 FL 03/22/2020 7:14 AM T [facility] MCH 25.0(L) 25.3 - 30.9 PG 03/22/2020 7:14 AM [facility] MCHC 31.0 31.0 - 34.1 G/DL 03/22/2020 7:14 AM [facility] RDW 16.5(H) 12.4 - 15.1 % 03/22/2020 7:14 AM [facility] PLT 321 151 - 353 x10'3/uL 03/22/2020 7:14 AM T [facility] MPV 8.0(L) 9.6 - 12.0 FL 03/22/2020 7:14 AM [facility] RBC MORPHOLOGY NORMAL 03/22/2020 7:14 AM T [facility] PLT MORPH. NORMAL 03/22/2020 7:14 AM [facility] WBC MORPHOLOGY NORMAL 03/22/2020 7:14 AM T [facility] LYMPHOCYTES % 29.5 15.8 - 45.0 % 03/22/2020 7:14 AM [facility] NEUTROPHILS % 53.5 42.1 - 71.9 % 03/22/2020 7:14 AM T [facility] MONOCYTES % 11.0 5.7 - 12.5 % 03/22/2020 7:14 AM CDT [facility] EOSINOPHILS 1.7 0.0 - 5.6 % 03/22/2020 7:14 AM CDT [facility] BASOPHILS 0.5 0.0 - 1.3 % 03/22/2020 7:14 AM CDT [facility] ABS. NEUTROPHILS TOTAL 3.54 1.40 - 6.00 x10'3/uL 03/22/2020 7:14 AM CDT [facility] IMMATURE GRANS % 3.8(H) 0.0 - 0.5 % 03/22/2020 7:14 AM CDT [facility] ABS. LYMPHOCYTES 1.95 0.80 - 4.70 x10'3/uL 03/22/2020 7:14 AM CDT [facility] 03/22/2020 6:55 AM CDT [place] APRN LABORATORY Final Result [facility] [address] [place] [address], * (ABNORMAL) IRON SAT PANEL (IRON,IBC,%SAT) (03/22/2020 6:55 AM CDT) IRON 33(L) 50 - 170 MCG/DL 03/22/2020 7:26 AM CDT [facility] IRON BINDING CAPACITY 133(L) 250 - 450 MCG/DL 03/22/2020 7:26 AM CDT [facility] IRON SATURATION 25 20 - 55 % 0 7:26 AM CDT [facility] 03/22/2020 6:55 AM CDT Durga Parekh MD LABORATORY Final Result [facility] [address] [place] [address], [place] [phone] * (ABNORMAL) VITAMIN B12 / FOLATE (03/22/2020 6:55 AM CDT) VITAMIN B12 S/P/B 4,687(H) 193 - 986 PG/ML 03/22/2020 8:34 AM CDT [facility] FOLATE 6.0(L) 8.6 - 58.9 NG/ML 03/22/2020 8:34 AM CDT [facility] 03/22/2020 6:55 AM CDT Durga Parekh MD LABORATORY Final Result Performing Organization Address [facility] [facility] Co de Phone Number [facility] [address] [place] [address], [place] [phone] * POCT glucose (03/22/2020 5:59 AM CDT) GLUCOSE POC 100 70 - 110 mg/dL 03/22/2020 6:11 AM CDT [facility] 03/22/2020 5:59 AM CDT Pollo Hogue APRN POCT ORDERABLES - DEVICE Final Result Performing Organization Address City/[facility]/ZIP Co de Phone Number [facility] [address] [place] [address], [place] [phone] * (ABNORMAL) POCT glucose (03/21/2020 8:25 PM CDT) GLUCOSE POC 137(H) 70 - 110 mg/dL 03/21/2020 8:55 PM CDT [facility] 03/21/2020 8:25 PM CDT Pollo Darian John INTRAVENOUS THERAPY NURSE POCT ORDERABLES - DEVICE Final Result Performing Organization Address City/[facility]/ZIP Co de Phone Number [facility] [address] [place] [address], [place] [phone] * POCT glucose (03/21/2020 4:13 PM CDT) GLUCOSE POC 100 70 - 110 mg/dL 03/21/2020 5:30 PM CDT [facility] 03/21/2020 4:13 PM CDT Pollo Farmer John INTRAVENOUS THERAPY NURSE POCT ORDERABLES - DEVICE Final Result Performing Organization Address [facility] Co de Phone Number [facility] [address] [place] [address], [place] [phone] * (ABNORMAL) BASIC METABOLIC PANEL (03/21/2020 12:09 PM CDT) GLUCOSE 100(H) 70 - 99 MG/DL 03/21/2020 12:42 PM CDT [facility] BUN 9 7 - 18 MG/DL 03/21/2020 12:42 PM CDT [facility] CREATININE S/P/B 0.84 0.55 - 1.02 MG/DL 03/21/2020 12:42 PM CDT [facility] SODIUM S/P/B 141 136 - 145 MMOL/L 03/21/2020 12:42 PM CDT [facility] POTASSIUM S/P/B 4.5 3.5 - 5.1 MMOL/L 03/21/2020 12:42 PM CDT [facility] CHLORIDE S/P/B 111(H) 100 - 108 MMOL/L 03/21/2020 12:42 PM CDT [facility] CO2 19.7(L) 21 - 32 MMOL/L 03/21/2020 12:42 PM CDT [facility] CALCIUM S/P/B 7.2(L) 8.5 - 10.1 MG/DL 03/21/2020 12:42 PM CDT [facility] ANION GAP 10.3 5 - 15 MMOL/L 03/21/2020 12:42 PM CDT [facility] BUN CREATININE RATIO 10.7 6 - 26 03/21/2020 12:42 PM CDT [facility] EGFR NON-AFR. AMER. 68(L) >90 ML/MIN/1.7 3 M2 03/21/2020 12:42 PM CDT [facility] EGFR AFR. AMER. 78(L) >90 ML/MIN/1.7 3 M2 03/21/2020 12:42 PM CDT [facility] Comment: NOTE: eGFR is not calculated for patients <18 years of age. This is an estimated GFR (CKD EPI) and should not be used for calculating drug doses. 03/21/2020 12:0 9 PM CDT Pollo Hogue APRN LABORATORY Final Result [facility] [address] [place] [address], * (ABNORMAL) CBC W/DIFF AUTOMATED (03/21/2020 12:09 PM CDT) WBC 7.3 4.4 - 11.0 x10'3/uL 03/21/2020 12:22 PM CDT [facility] RBC 3.22(L) 4.50 - 5.10 x10'6/uL 03/21/2020 12:22 PM CDT [facility] HGB 8.2(L) 12.3 - 15.3 G/DL 03/21/2020 12:22 PM CDT [facility] HCT 26.6(L) 35.9 - 44.6 % 03/21/2020 12:22 PM T [facility] MCV 82.6 80.0 - 96.0 FL 03/21/2020 12:22 PM CDT [facility] MCH 25.5 25.3 - 30.9 PG 03/21/2020 12:22 PM T [facility] MCHC 30.8(L) 31.0 - 34.1 G/DL 03/21/2020 12:22 PM T [facility] RDW 16.7(H) 12.4 - 15.1 % 03/21/2020 12:22 PM [facility] PLT 345 151 - 353 x10'3/uL 03/21/2020 12:22 PM T [facility] MPV 8.6(L) 9.6 - 12.0 FL 03/21/2020 12:22 PM T [facility] RBC MORPHOLOGY NORMAL 03/21/2020 12:22 PM [facility] PLT MORPH. NORMAL 03/21/2020 12:22 PM [facility] WBC MORPHOLOGY NORMAL 03/21/2020 12:22 PM [facility] LYMPHOCYTES % 23.1 15.8 - 45.0 % 03/21/2020 12:22 PM [facility] NEUTROPHILS % 60.5 42.1 - 71.9 % 03/21/2020 12:22 PM T [facility] MONOCYTES % 11.5 5.7 - 12.5 % 03/21/2020 12:22 PM [facility] EOSINOPHILS 1.5 0.0 - 5.6 % 03/21/2020 12:22 PM T [facility] BASOPHILS 0.5 0.0 - 1.3 % 03/21/2020 12:22 PM CDT [facility] ABS. NEUTROPHILS TOTAL 4.40 1.40 - 6.00 x10'3/uL 03/21/2020 12:22 PM CDT [facility] IMMATURE GRANS % 2.9(H) 0.0 - 0.5 % 03/21/2020 12:22 PM CDT [facility] ABS. LYMPHOCYTES 1.68 0.80 - 4.70 x10'3/uL 03/21/2020 12:22 PM CDT [facility] 03/21/2020 12:0 9 PM CDT us Pollo Hogue INTRAVENOUS THERAPY NURSE LABORATORY Final Result Performing Organization Address City/State/[facility] Co de Phone Number [facility] [address] [place] [address], [place] [phone] * [place] RETROPERITONEAL COMP (03/21/2020 10:53 AM [...] COMPARISON: CT 03/19/2020 TECHNIQUE: Examination performed by fire adjuster using grayscale with color flow and spectral Doppler. Selected images submitted for interpretation. Worksheet completed. Procedure Note Driss Garcia MD - 03/21/2020 IMAGING STUDIES:US RETROPERITONEAL COMP DATE: 03/21/2020 9:33 AM INDICATION: left renal lesion noted on CT COMPARISON: CT 03/19/2020 TECHNIQUE: Examination performed by fire adjuster using grayscalewith color flow and spectral Doppler. [...] Driss Garcia, 03/21/2020 12:23 PM Cara Alvarado INTRAVENOUS THERAPY NURSE ULTRASOUND Final Re sult * POCT glucose (03/21/2020 6:07 AM CDT) GLUCOSE POC 107 70 - 110 mg/dL 03/21/2020 6:[address] [facility] 03/21/2020 6:07 AM CDT Durga Parekh MD POCT ORDERABLES - DEVICE Final Result [facility] [address] [place] [address], * O&P CONC&SMEAR TO REF LAB (03/20/2020 12:25 PM CDT) SPECIMEN SOURCE STOOL 0 12:54 PM CDT [facility] O & P EXAMINATION (STOOL) REPORT 03/29/2020 8:32 PM CDT [employer] [facility] Comment: Ova and Parasites, Concentrate and Permanent Smear Examination for Ova and Parasites SOURCE : STOOL Result/Comment: NO OVA AND PARASITES SEEN. Reference Range: ??No Ova and Parasites seen Routine Ova and Parasite Exam may not detect some parasites that occasionally cause diarrheal illness. Test code(s) 79047E[56544](Cryptosporidium Ag, DFA) and/or 66164M[29315] (Cyclospora and Isospora Exam) may be ordered to detect these parasites. One negative sample does not necessarily rule out the presence of a parasitic infection. Assay performed by wet mount after concentration. Parasite Exam, Trichrome Stain SOURCE : STOOL Result/Comment: NO OVA AND PARASITES SEEN. Routine Ova and Parasite Exam may not detect some parasites that occasionally cause diarrheal illness. Test code(s) 50351T[64216](Cryptosporidium Ag, DFA) and/or 11046H[86347] (Cyclospora and Isospora Exam) may be ordered to detect these parasites. One negative sample does not necessarily rule out the presence of a parasitic infection. For additional information, please refer to https://education.Agrar33/faq/NUA361 (This link is being provided for informational/ educational purposes only.) Test Performed by [employer] [facility], [address] [place] [id number] Gamal Gao M.D., Ph.D., Director of Laboratories , CLIA [id number] STOOL SPECIMEN / Unknown 03/20/2020 12:25 PM CDT Durga Parekh MD MICROBIOLOGY - GENERAL ORDERAB LES Final Result [facility] [address] [place] [address], [place] [phone] [facility] [address] [place] [address], [place] [phone] * CLOSTRIDIUM DIFFICILE (03/20/2020 11:25 AM CDT) C DIFFICILE TOXIN (STOOL) NEGATIVE NEGATIVE 03/20/2020 2:14 PM CDT [facility] STOOL SPECIMEN / Unknown 03/20/2020 11:25 AM CDT Durga Parekh MD BODY FLUIDS AND STOOLS ORDERAB LES Final Result Performing Organization Address [facility]/ZIP Co de Phone Number [facility] [address] [place] [address], [place] [phone] * (ABNORMAL) LIPID PANEL (03/20/2020 5:30 AM CDT) CHOLESTEROL 51 <200.0 MG/DL 03/20/2020 6:40 AM CDT [facility] TRIGLYCERIDES 47 <150 MG/DL 03/20/2020 6:40 AM CDT [facility] HDL 36(L) >40.0 MG/DL 03/20/2020 6:40 AM CDT [facility] LDL (CALCULATED) 6 <100 MG/DL 03/20/20 20 6:40 AM CDT [facility] NON HDL CHOLESTEROL 15 <130 MG/DL 03/20 6:40 AM CDT [facility] CHOL/HDL RATIO 1.4 0.0 - 4.5 03/20/2020 6:40 AM CDT [facility] VLDL CALCULATION 9 5 - 55 MG/DL 03/20/2020 6:40 AM CDT [facility] LIPID INTERPRETATION 03/20/2020 6:40 AM CDT [facility] Comment: [facility] REPORT RECOMMENDATIONS: ?ADULT [...] MD LABORATORY Final Result Performing Organization Address City/[facility]/ZIP Co de Phone Number [facility] [address] [place] [address], * (ABNORMAL) MAGNESIUM (03/20/2020 5:30 AM CDT) MAGNESIUM 1.6(L) 1.8 - 2.4 MG/DL 03/20/2020 6:38 AM CDT [facility] 03/20/2020 5:30 AM CDT Madison Aaron MD LABORATORY Final Result Performing Organization Address [facility] Co de Phone Number [facility] [address] [place] [address], [place] [phone] * (ABNORMAL) BASIC METABOLIC PANEL (03/20/2020 5:30 AM CDT) GLUCOSE 74 70 - 99 MG/DL 03/20/2020 6:38 AM CDT [facility] BUN 24(H) 7 - 18 MG/DL 03/20/2020 6:38 AM CDT [facility] CREATININE S/P/B 1.59(H) 0.55 - 1.02 MG/DL 03/20/2020 6:38 AM CDT [facility] SODIUM S/P/B 140 136 - 145 MMOL/L 03/20/2020 6:38 AM CDT [facility] POTASSIUM S/P/B 5.0 3.5 - 5.1 MMOL/L 03/20/2020 6:38 AM CDT [facility] CHLORIDE S/P/B 110(H) 100 - 108 MMOL/L 03/20/2020 6:38 AM CDT [facility] CO2 20.2(L) 21 - 32 MMOL/L 03/20/2020 6:38 AM CDT [facility] CALCIUM S/P/B 7.4(L) 8.5 - 10.1 MG/DL 03/20/2020 6:38 AM CDT [facility] ANION GAP 9.8 5 - 15 MMOL/L 03/20/2020 6:38 AM CDT [facility] BUN CREATININE RATIO 15.1 6 - 26 03/20/2020 6:38 AM T [facility] EGFR NON-AFR. AMER. 31(L) >90 ML/MIN/1.7 3 M2 03/20/2020 6:38 AM CDT [facility] EGFR AFR. AMER. 36(L) >90 ML/MIN/1.7 3 M2 03/20/2020 6:38 AM T [facility] Comment: NOTE: eGFR is not calculated for patients <18 years of age. This is an estimated GFR (CKD EPI) and should not be used for calculating drug doses. 03/20/2020 5:30 AM CDT Madison Aaron MD LABORATORY Final Result [facility] [address] [place] [address], * (ABNORMAL) CBC W/DIFF AUTOMATED (03/20/2020 5:30 AM CDT) WBC 11.2(H) 4.4 - 11.0 x10'3/uL 03/20/2020 6:30 AM CDT [facility] RBC 3.10(L) 4.50 - 5.10 x10'6/uL 03/20/2020 6:30 AM CDT [facility] HGB 7.8(L) 12.3 - 15.3 G/DL 03/20/2020 6:30 AM CDT [facility] HCT 25.6(L) 35.9 - 44.6 % 03/20/2020 6:30 AM T [facility] MCV 82.6 80.0 - 96.0 FL 03/20/2020 6:30 AM [facility] MCH 25.2(L) 25.3 - 30.9 PG 03/20/2020 6:30 AM T [facility] MCHC 30.5(L) 31.0 - 34.1 G/DL 03/20/2020 6:30 AM [facility] RDW 16.1(H) 12.4 - 15.1 % 03/20/2020 6:30 AM [facility] PLT 336 151 - 353 x10'3/uL 03/20/2020 6:30 AM [facility] MPV 9.0(L) 9.6 - 12.0 FL 03/20/2020 6:30 AM [facility] RBC MORPHOLOGY NORMAL 03/20/2020 6:30 AM [facility] PLT MORPH. NORMAL 03/20/2020 6:30 AM [facility] WBC MORPHOLOGY NORMAL 03/20/2020 6:30 AM [facility] LYMPHOCYTES % 15.5(L) 15.8 - 45.0 % 03/20/2020 6:30 AM T [facility] NEUTROPHILS % 70.7 42.1 - 71.9 % 03/20/2020 6:30 AM T [facility] MONOCYTES % 11.5 5.7 - 12.5 % 03/20/2020 6:30 AM [facility] EOSINOPHILS 0.8 0.0 - 5.6 % 03/20/2020 6:30 AM [facility] BASOPHILS 0.3 0.0 - 1.3 % 03/20/2020 6:30 AM CDT [facility] ABS. NEUTROPHILS TOTAL 7.93(H) 1.40 - 6.00 x10'3/uL 03/20/2020 6:30 AM CDT [facility] IMMATURE GRANS % 1.2(H) 0.0 - 0.5 % 03/20/2020 6:30 AM CDT [facility] ABS. LYMPHOCYTES 1.74 0.80 - 4.70 x10'3/uL 03/20/2020 6:30 AM CDT [facility] 03/20/2020 5:30 AM CDT us Madison Aaron MD LABORATORY Final Result Performing Organization Address City/[facility]/ZIP Co de Phone Number [facility] [address] [place] [address], [place] [phone] * CULTURE, BACTERIA, BLOOD (03/20/2020 5:21 AM CDT) SPEC DESCRIPTION BLOOD 03/19/2020 11:05 PM CDT [facility] SPECIAL REQUESTS NO SPECIAL REQUEST 03/19/2020 11:05 PM CDT [facility] CULTURE RESULT NO GROWTH 5 DAYS 2020 3:42 PM CDT [facility] BLOOD SPECIMEN OBTAINED FOR BLOOD CULTURE / Unknown 03/20/2020 5:21 AM CDT 03/20/2020 5:22 AM CDT Mahesh Nelson MD MICROBIOLOGY - GENERAL MIA LEARY Final Result [facility] [address] [place] [address], [place] [phone] [facility] [address] [place] [address], [place] [phone] * (ABNORMAL) CULTURE, BACTERIA, BLOOD (03/20/2020 5:21 AM CDT) SPEC DESCRIPTION BLOOD 03/19/2020 11:05 PM CDT [facility] SPECIAL REQUESTS NO SPECIAL REQUEST 03/19/2020 11:05 PM CDT [facility] GRAM STAIN RESULT MODERATE GRAM POSITIVE COCCI RESEMBLING STAPHYLOCOCCUS SPECIES 03/22/2020 2:54 AM CDT [facility] CULTURE RESULT GROWTH OF STAPH. SPECIES NOT STAPH. AUREUS SUSCEPTIBILTY NOT ROUTINELY PERFORMED. SAVING ISOLATE FOR 5 DAYS. CONTACT MICROBIOLOGY DEPARTMENT IF FURTHER WORKUP IS INDICATED. (AA) 03/23/2020 9:47 AM CDT [facility] CULTURE RESULT CALLED TO AND READ BACK BY CHIKA BORREGO ON 03/22/20 AT 0250 BY [facility] 03/23/2020 9:47 AM CDT [facility] BLOOD SPECIMEN OBTAINED FOR BLOOD CULTURE / Unknown 03/20/2020 5:21 AM CDT 03/20/2020 5:22 AM CDT Mahesh Nelson MD MICROBIOLOGY - GENERAL MIA LEARY Final Result [facility] [address] [place] [address], [facility] [address] [place] [address], * ECG 12 lead (03/19/2020 11:20 PM CDT) 03/19/2020 11:2 0 PM CDT Narrative [facility] ([facility]) RAD - 03/20/2020 7:18 AM CDT ?[facility] ? Test Date: ?2020-03-19 Pat Name: ? RADHA ALLEN ? Department: ? Room: ? 120 Gender: ? Female ? Insurance Agency Manager: ?? : ?1945 ? Requested By: MAHESH BRAHMAVAR Order Number: [id number] ? Reading MD: ?? Keven Gunter ? Measurements Intervals ?[place] ? Rate: ? 78 ? P: ?53 DC: ? 137 ?QRS: ?22 QRSD: ? 87 ? T: ?12 QT: ? 355 ? QTc: ?405 ? Interpretive Statements SINUS RHYTHM LOW QRS VOLTAGE IN PRECORDIAL LEADS ?? No previous ECG available for comparison Procedure Note Keven Gunter MD - 03/20/2020 [facility] Test Date: 2020-03-19 Pat Name: RADHA ALLEN Department: Room: 120 Gender: Female Insurance Agency Manager: : 1945 Requested By: MAHESH NELSON Order Number: [id number] Reading MD: Keven Gunter Measurements Intervals [place] Rate: 78 P: 53 DC: 137 QRS: 22 QRSD: 87 T: 12 QT: 355 QTc: 405 Interpretive Statements SINUS RHYTHM LOW QRS VOLTAGE IN PRECORDIAL LEADS No previous ECG available for comparison us Mahesh Nelson MD ECG ORDERABLES Final Resul t [facility] ([facility]) RAD * CT ABD+PEL WO [...] - 2.0 MMOL/L 03/19/2020 9:24 PM CDT [facility] 03/19/2020 8:45 PM CDT us Mahesh Nelson MD LABORATORY Final Resul t Performing Organization Address [facility] Co de Phone Number [facility] [address] [place] [address], [place] [phone] * LIPASE (03/19/2020 8:45 PM CDT) LIPASE 74 73 - 393 UNITS/L 03/19/2020 9:19 PM CDT [facility] 03/19/2020 8:45 PM CDT us Mahesh Nelson MD LABORATORY Final Resul t Performing Organization Address [facility] Co de Phone Number [facility] [address] [place] [address], [place] [phone] * (ABNORMAL) COMPREHENSIVE METABOLIC PANEL (03/19/2020 8:45 PM CDT) GLUCOSE 107(H) 70 - 99 MG/DL 03/19/2020 9:19 PM CDT [facility] BUN 28(H) 7 - 18 MG/DL 03/19/2020 9:19 PM [facility] CREATININE S/P/B 2.27(H) 0.55 - 1.02 MG/DL 03/19/2020 9:19 PM [facility] SODIUM S/P/B 135(L) 136 - 145 MMOL/L 03/19/2020 9:19 PM [facility] POTASSIUM S/P/B 5.3(H) 3.5 - 5.1 MMOL/L 03/19/2020 9:19 PM [facility] CHLORIDE S/P/B 102 100 - 108 MMOL/L 03/19/2020 9:19 PM [facility] CO2 20.2(L) 21 - 32 MMOL/L 03/19/2020 9:19 PM [facility] CALCIUM S/P/B 8.4(L) 8.5 - 10.1 MG/DL 03/19/2020 9:19 PM [facility] BILIRUBIN TOTAL S/P/B 0.4 0.2 - 1.2 MG/DL 03/19/2020 9:19 PM [facility] TOTAL PROTEIN S/P/B 7.4 6.4 - 8.2 G/DL 03/19/2020 9:19 PM [facility] ALBUMIN S/P/B 2.5(L) 3.4 - 5.0 G/DL 03/19/2020 9:19 PM [facility] AST 21 15 - 37 U/L 03/19/2020 9:19 PM [facility] ALT 16 14 - 55 U/L 03/19/2020 9:19 PM [facility] ALKALINE PHOSPHATASE S/P/B 103 50 - 136 U/L 03/19/2020 9:19 PM [facility] ANION GAP 12.8 5 - 15 MMOL/L 03/19/2020 9:19 PM CDT [facility] BUN CREATININE RATIO 12.3 6 - 26 03/19/2020 9:19 PM CDT [facility] A/G RATIO 0.5(L) 1.0 - 2.0 RATIO 03/19/2020 9:19 PM CDT [facility] EGFR NON-AFR. AMER. 20(L) >90 ML/MIN/1.7 3 M2 03/19/2020 9:19 PM CDT [facility] EGFR AFR. AMER. 24(L) >90 ML/MIN/1.7 3 M2 03/19/2020 9:19 PM CDT [facility] Comment: NOTE: eGFR is not calculated for patients <18 years of age. This is an estimated GFR (CKD EPI) and should not be used for calculating drug doses. 03/19/2020 8:45 PM CDT us Mahesh Nelson MD LABORATORY Final Resul t [facility] [address] [place] [address], [place] [phone] * (ABNORMAL) CBC W/DIFF AUTOMATED (03/19/2020 8:45 PM CDT) WBC 18.1(H) 4.4 - 11.0 x10'3/uL 03/19/2020 9:03 PM CDT [facility] RBC 3.78(L) 4.50 - 5.10 x10'6/uL 03/19/2020 9:03 PM CDT [facility] HGB 9.5(L) 12.3 - 15.3 G/DL 03/19/2020 9:03 PM CDT [facility] HCT 31.0(L) 35.9 - 44.6 % 03/19/2020 9:03 PM CDT [facility] MCV 82.0 80.0 - 96.0 FL 03/19/2020 9:03 PM T [facility] MCH 25.1(L) 25.3 - 30.9 PG 03/19/2020 9:03 PM T [facility] MCHC 30.6(L) 31.0 - 34.1 G/DL 03/19/2020 9:03 PM T [facility] RDW 16.0(H) 12.4 - 15.1 % 03/19/2020 9:03 PM T [facility] PLT 476(H) 151 - 353 x10'3/uL 03/19/2020 9:03 PM T [facility] MPV 8.7(L) 9.6 - 12.0 FL 03/19/2020 9:03 PM T [facility] SEG NEUTROPHILS 76(H) 42 - 72 % 0 9:20 PM T [facility] BANDS 2 % 03/19/2020 9:20 PM T [facility] LYMPHOCYTES 13(L) 15.8 - 45.0 % 03/19/2020 9:20 PM T [facility] MONOCYTES 9 5.7 - 12.5 % 03/19/2020 9:20 PM T [facility] ABS. NEUTROPHILS TOTAL 14.12(H) 1.40 - 6.00 x10'3/uL 03/19/2020 9:20 PM T [facility] ABS. LYMPHOCYTES 2.35 0.80 - 4.70 x10'3/uL 03/19/2020 9:20 PM T [facility] PLT MORPH. NORMAL 03/19/2020 9:20 PM T [facility] RBC MORPHOLOGY NORMAL 03/19/2020 9:20 PM CDT [facility] WBC MORPHOLOGY NORMAL 03/19/2020 9:20 PM CDT [facility] 03/19/2020 8:45 PM CDT Mahesh Nelson MD LABORATORY Final Resul t [facility] [address] [facility] [place] [address], [place] [phone] documented in this encounter Visit Diagnoses Diagnosis Colitis- Primary Other and unspecified noninfectious gastroenteritis and colitis JENNY (acute kidney injury) ([facility]) Acute kidney failure, unspecified Colitis Other and unspecified noninfectious gastroenteritis and colitis Ulcerative colitis without complications, unspecified location ([facility]) Iron deficiency anemia, unspecified iron deficiency anemia [...] Student)1155 (Infusion Stop Time - Provider: Marixa rGay RN)1800 (Canceled Entry - Provider: Automatic Discharge [...] entered.) documented in this encounter Care Teams Workforce Management Coordinator Relationship Specialty Start Date End Date Jared Leyva MD PCP - General 08/28/11 07/16/22 documented as of this encounter
--- OUTSIDE RECORDS SUMMARY | 2024-07-15 17:20 | XMS_ITS | Encounter Summary ---
Author Organization [facility] Address [address] [place] [address] [place] [address] Care Team Providers Care Icu Nurse Name Role Phone Jared Abrams MD Primary Care Provider [phone] Encounter Details Date Type Department Care Team (Late st Contact Info) Description 10/27/2012 Abstract [facility] [address] [place] [address] Jared Abrams MD [address] [place] [address] Social History Tobacco Use Types Packs/Day Years [...] st Contact Info) Description 08/03/2024 2:00 PM AP OPERATOR Appointment [facility] [address] [place] [address] Josué Cook MD [address] [place] [id number] documented as of this encounter Visit Diagnoses Diagnosis Encounter for screening mammogram for high-risk patient documented in this encounter Care Teams Icu Nurse Relationship Specialty Start Date End Date Jared Abrams MD PCP - General 08/28/11 07/16/22 documented as of this encounter
--- OUTSIDE RECORDS SUMMARY | 2024-07-15 17:20 | XMS_ITS | Encounter Summary ---
Author Organization [facility] Address [address] [place] [address] [place] [address] Care Team Providers Care Hydro Plant Site Manager Name Role Phone Jared Abrams MD Primary Care Provider [phone] Encounter Details Date Type Department Care Team (Late st Contact Info) Description 04/08/2012 Abstract [facility] [address] [place] [address] Jared Abrams MD [address] [place] [address] Social History Tobacco Use Types Packs/Day Years [...] st Contact Info) Description 08/03/2024 2:00 PM SPRAY PAINTER HELPER Appointment [facility] [address] [place] [address] Josué Cook MD [address] [place] [phone] documented as of this encounter Visit Diagnoses Diagnosis Anemia Anemia, unspecified documented in this encounter Care Teams Hydro Plant Site Manager Relationship Specialty Start Date End Date Jared Abrams MD PCP - General 08/28/11 07/16/22 documented as of this encounter
--- OUTSIDE RECORDS SUMMARY | 2024-07-15 17:20 | XMS_ITS | Encounter Summary ---
Author Organization [facility] Address [address] [facility] [address] [place] [address] Care Team Providers Care Cloud Consultant Name Role Phone Jared Abrams MD Primary Care Provider [phone] Encounter Details Date Type Department Care Team (Late st Contact Info) Description 06/12/2012 Abstract [facility] [address] [place] [address] Jared Abrams MD 1212 [place] [address] Social History Tobacco Use Types Packs/Day Years [...] Contact Info) Description 08/03/2024 2:00 PM FIELD MECHANIC Appointment [facility] [address] [place] [address] Josué Cook MD [address] [place] [address] documented as of this encounter Visit Diagnoses Diagnosis Other and unspecified hyperlipidemia documented in this encounter Care Teams Cloud Consultant Relationship Specialty Start Date End Date Jared Abrams MD PCP - General 08/28/11 07/16/22 documented as of this encounter
--- OUTSIDE RECORDS SUMMARY | 2024-07-15 17:20 | XMS_ITS | Encounter Summary ---
Author Organization [facility] Address [address] [facility] [place] [address] [place] [address] Care Team Providers Care Template Worker Name Role Phone Jared Abrams MD Primary Care Provider [phone] Encounter Details Date Type Department Care Team (Late st Contact Info) Description 10/21/2011 Abstract [facility] [address] [place] [address] Jared Abrams MD 1212 [place] [address] Social History Tobacco Use Types Packs/Day Years [...] st Contact Info) Description 08/03/2024 2:00 PM ALUM MIXER Appointment [facility] Day [facility] [address] [place] [address] Josué Cook MD [address] [place] [address] documented as of this encounter Visit Diagnoses Diagnosis Essential hypertension Unspecified essential hypertension documented in this encounter Care Teams Template Worker Relationship Specialty Start Date End Date Jared Abrams MD PCP - General 08/28/11 07/16/22 documented as of this encounter
--- OUTSIDE RECORDS SUMMARY | 2024-07-15 17:20 | XMS_ITS | Encounter Summary ---
Author Organization [facility] Address [address] [facility] [address] [place] [address] Care Team Providers Care Vocational Trainer Name Role Phone Jared Abrams MD Primary Care Provider [phone] Encounter Details Date Type Department Care Team (Late st Contact Info) Description 10/14/2012 Abstract [facility] [address] [place] [address] Jared Abrams MD 1212 [place] [address] Social History Tobacco Use Types Packs/Day Years [...] st Contact Info) Description 08/03/2024 2:00 PM STENCIL TYPIST Appointment [facility] Day Services [address] [place] [address] Josué Cook MD [address] [place] [address] documented as of this encounter Visit Diagnoses Diagnosis Occlusion and stenosis of carotid artery Occlusion and stenosis of carotid artery without mention of cerebral infarction documented in this encounter Care Teams Vocational Trainer Relationship Specialty Start Date End Date Jared Abrams MD PCP - General 08/28/11 07/16/22 documented as of this encounter
--- OUTSIDE RECORDS SUMMARY | 2024-07-15 17:20 | XMS_ITS | Encounter Summary ---
Author Organization [facility] Address [address] [facility] [place] [address] [place] [address] Care Team Providers Care Blind Teacher Name Role Phone Jared Abrams MD Primary Care Provider [phone] Encounter Details Date Type Department Care Team (Late Contact Info) Description 08/28/2011 Abstract [facility] Emergency Room [address] [place] [address] Andrez Cheema MD [address] [address] Social History Tobacco Use Types [...] st Contact Info) Description 08/03/2024 2:00 PM SHEARING MACHINE FEEDER Appointment [facility] [address] [place] [address] Josué Cook MD [address] [place] [address] documented as of this encounter Visit Diagnoses Diagnosis Dizziness and giddiness documented in this encounter Care Teams Blind Teacher Relationship Specialty Start Date End Date Jared Abrams MD PCP - General 08/28/11 07/16/22 documented as of this encounter
--- OUTSIDE RECORDS SUMMARY | 2024-07-15 17:20 | XMS_ITS | Encounter Summary ---
Author Organization [facility] Address [facility] [facility] [place] [address] [place] [address] Care Team Providers Care Technical Account Representative Name Role Phone Jared Abrams MD Primary Care Provider [phone] Encounter Details Date Type Department Care Team (Latest Contact Info) Description 07/09/2012 Abstract [facility] Social History Tobacco [...] st Contact Info) Description 08/03/2024 2:00 PM FIBER OPTIC CENTRAL OFFICE INSTALLER Appointment [facility] One Day [facility] [address] [place] [address] Josué Cook MD [address] [address] documented as of this encounter Visit Diagnoses Not on filedocumented in this encounter Care Teams Technical Account Representative Relationship Specialty Start Date End Date Jared Abrams MD PCP - General 08/28/11 07/16/22 documented as of this encounter
--- OUTSIDE RECORDS SUMMARY | 2024-07-15 17:20 | XMS_ITS | Encounter Summary ---
Author Organization [facility] Address [address] [facility] [place] [address] [place] [address] Care Team Providers Care Chairlift Operator Name Role Phone Jared Abrams MD Primary Care Provider [phone] Encounter Details Date Type Department Care Team (Late st Contact Info) Description 10/01/2012 Abstract [facility] [address] [place] [address] Jared Abrams MD 1212 [place] [address] Social History Tobacco Use Types Packs/Day Years [...] st Contact Info) Description 08/03/2024 2:00 PM ELECTRON BEAM WELDING MACHINE OPERATOR Appointment [facility] [address] [place] [address] Josué Cook MD [address] [place] [address] documented as of this encounter Visit Diagnoses Diagnosis Essential hypertension Unspecified essential hypertension documented in this encounter Care Teams Chairlift Operator Relationship Specialty Start Date End Date Jared Abrams MD PCP - General 08/28/11 07/16/22 documented as of this encounter
--- OUTSIDE RECORDS SUMMARY | 2024-07-15 17:20 | XMS_ITS | Encounter Summary ---
Author Organization [facility] Address [address] [place] [address] [place] [address] Care Team Providers Care Cement Crusher Operator Name Role Phone Jared Abrams MD Primary Care Provider [phone] Encounter Details Date Type Department Care Team (Late st Contact Info) Description 07/06/2012 Abstract [facility] [address] [place] [address] Jared Abrams MD 1212 [place] [address] Social History Tobacco Use Types Packs/Day Years [...] st Contact Info) Description 08/03/2024 2:00 PM ASSEMBLY DEPARTMENT SUPERVISOR Appointment [facility] Day [facility] [address] [place] [address] Josué Cook MD [address] [place] [address] documented as of this encounter Visit Diagnoses Diagnosis Other seborrheic keratosis documented in this encounter Care Teams Cement Crusher Operator Relationship Specialty Start Date End Date Jared Abrams MD PCP - General 08/28/11 07/16/22 documented as of this encounter
--- OUTSIDE RECORDS SUMMARY | 2024-07-15 17:20 | XMS_ITS | Encounter Summary ---
Author Organization [facility] Address [address] [place] [address] [place] [address] Care Team Providers Care Suction Plate Carrier Cleaner Name Role Phone Jared Abrams MD Primary Care Provider [phone] Encounter Details Date Type Department Care Team (Late st Contact Info) Description 09/23/2011 Abstract [facility] [address] [place] [address] Jared Abrams MD 1212 [place] [address] Social History Tobacco Use Types Packs/Day Years [...] st Contact Info) Description 08/03/2024 2:00 PM JUTE BAG SEWER Appointment [facility] [address] [place] [address] Josué Cook MD [address] [place] [address] documented as of this encounter Visit Diagnoses Diagnosis Essential hypertension Unspecified essential hypertension documented in this encounter Care Teams Suction Plate Carrier Cleaner Relationship Specialty Start Date End Date Jared Abrams MD PCP - General 08/28/11 07/16/22 documented as of this encounter
--- OUTSIDE RECORDS SUMMARY | 2024-07-15 17:20 | XMS_ITS | Encounter Summary ---
Author Organization [facility] Address [address] [place] [address] [place] [address] Care Team Providers Care Stonemason Helper Name Role Phone Jared Abrams MD Primary Care Provider [phone] Encounter Details Date Type Department Care Team (Late st Contact Info) Description 01/06/2012 Abstract [facility] [address] [place] [address] Jared Abrams MD 1212 [place] [address] Social History Tobacco Use Types Packs/Day Years [...] st Contact Info) Description 08/03/2024 2:00 PM WINE CELLAR STOCK CLERK Appointment [facility] Day [facility] [address] [place] [address] Josué Cook MD [address] [place] [address] documented as of this encounter Visit Diagnoses Diagnosis Anemia Anemia, unspecified documented in this encounter Care Teams Stonemason Helper Relationship Specialty Start Date End Date Jared Abrams MD PCP - General 08/28/11 07/16/22 documented as of this encounter
--- OUTSIDE RECORDS SUMMARY | 2024-07-15 17:21 | XMS_ITS | Encounter Summary ---
Author Organization [facility] Address [address] [facility] [place] [address] [place] [address] Care Team Providers Care Estimator Binding Name Role Phone Jared Abrams MD Primary Care Provider [phone] Encounter Details Date Type Department Care Team (Late Contact Info) Description 01/21/2011 Abstract [facility] Medicine [address] [place] [address] David Foy, MARKER MACHINE ATTENDANT [address] [place], [place] [address] Social History Tobacco Use Types Packs/Day Years [...] (Late Contact Info) Description 08/03/2024 2:00 PM DIRECTOR EQUIPMENT Appointment [facility] Day Services [address] [place] [address] Josué Cook MD [address] [facility] 8 [place] [address] documented as of this encounter Visit Diagnoses Diagnosis Pain in joint, pelvic region and thigh documented in this encounter Care Teams Estimator Binding Relationship Specialty Start Date End Date Jared Abrams MD PCP - General 08/28/11 07/16/22 documented as of this encounter
--- OUTSIDE RECORDS SUMMARY | 2024-07-15 17:21 | XMS_ITS | Encounter Summary ---
Author Organization [facility] Address [address] [facility] [place] [address] [place] [address] Care Team Providers Care Ophthalmic Asst Name Role Phone Jared Abrams MD Primary Care Provider [phone] Encounter Details Date Type Department Care Team (Late Contact Info) Description 12/30/2008 Abstract [facility] 9515 [place] [address] Jared Abrams MD [facility] [place] [address] Social History Tobacco Use Types Packs/Day Years [...] (Late Contact Info) Description 08/03/2024 2:00 PM RISK INTERN Appointment [facility] Day [facility] [address] [place], [place] [address] Josué [place] [address] [place] [address] documented as of this encounter Visit Diagnoses Not on filedocumented in this encounter Care Teams Ophthalmic Asst Relationship Specialty Start Date End Date Jared Abrams MD PCP - General 08/28/11 07/16/22 documented as of this encounter
--- OUTSIDE RECORDS SUMMARY | 2024-07-15 17:21 | XMS_ITS | Encounter Summary ---
Author Organization [facility] Address [address] [facility] [place] [address] [place] [address] Care Team Providers Care Physical Therapy Teacher Name Role Phone Jared Abrams MD Primary Care Provider [phone] Encounter Details Date Type Department Care Team (Late st Contact Info) Description 07/26/2010 Abstract [facility] [address]15 [place] [address] Scar Diaz MD [address] [place] [address] Social History Tobacco Use Types Packs/Day Years [...] Contact Info) Description 08/03/2024 2:00 PM MOTOR OPERATOR Appointment [facility] Day [facility] [address] [facility] [place] [address] Josué Cook MD [address] [place] [address] 8 [place] [address] documented as of this encounter Visit Diagnoses Diagnosis History of hip joint replacement by other means documented in this encounter Care Teams Physical Therapy Teacher Relationship Specialty Start Date End Date Jared Abrams MD PCP - General 08/28/11 07/16/22 documented as of this encounter
--- OUTSIDE RECORDS SUMMARY | 2024-07-15 17:21 | XMS_ITS | Encounter Summary ---
Author Organization [facility] Address [address] [place] [address] [place] [address] Care Team Providers Care Child Caregiver Name Role Phone Jared Abrams MD Primary Care Provider [phone] Encounter Details Date Type Department Care Team (Late Contact Info) Description 03/22/2010 Abstract [facility] [address]15 [place] [address] Scar Diaz MD [address] [place] [address] Social History Tobacco Use Types Packs/Day Years [...] (Late Contact Info) Description 08/03/2024 2:00 PM BUSINESS CONSULT Appointment [facility] Day [facility] [address] [place], [place] [phone] Josué Cook MD 49[address] [facility] 8 [place] [address] documented as of this encounter Visit Diagnoses Not on filedocumented in this encounter Care Teams Child Caregiver Relationship Specialty Start Date End Date Jared Abrams MD PCP - General 08/28/11 07/16/22 documented as of this encounter
--- OUTSIDE RECORDS SUMMARY | 2024-07-15 17:21 | XMS_ITS | Encounter Summary ---
Author Organization [facility] Address [address] [facility] [place] [address] [place] [address] Care Team Providers Care Latin Dance Instructor Name Role Phone Jared Abrams MD Primary Care Provider [phone] Encounter Details Date Type Department Care Team (Late Contact Info) Description 03/19/2010 Abstract [facility] [address] [place] [address] Jared Abrams MD 1212 [place] [address] Social History Tobacco Use Types Packs/Day Years [...] (Late Contact Info) Description 08/03/2024 2:00 PM MARKET RESEARCH INTERN Appointment [facility] Day Services [address] [place] [address] Josué Cook MD [address] [place] [address] documented as of this encounter Visit Diagnoses Not on filedocumented in this encounter Care Teams Latin Dance Instructor Relationship Specialty Start Date End Date Jared Abrams MD PCP - General 08/28/11 07/16/22 documented as of this encounter
--- OUTSIDE RECORDS SUMMARY | 2024-07-15 17:21 | XMS_ITS | Encounter Summary ---
Author Organization [facility] Address [address] [facility] [place] [address] [place] [address] Care Team Providers Care Fleet Manager/Dispatch Name Role Phone Jared Abrams MD Primary Care Provider [phone] Encounter Details Date Type Department Care Team (Late st Contact Info) Description 01/10/2011 Abstract [facility] [address] [place] [address] David Foy, MUSIC LIBRARY ASSISTANT [address] [place], [place] [address] Social History Tobacco Use Types Packs/Day Years [...] st Contact Info) Description 08/03/2024 2:[address] AND BUILDING DECORATOR Appointment [facility] Day [facility] [address] [place] [address] Josué Cook MD [address] [address] documented as of this encounter Visit Diagnoses Diagnosis Essential hypertension Unspecified essential hypertension documented in this encounter Care Teams Fleet Manager/Dispatch Relationship Specialty Start Date End Date Jared Abrams MD PCP - General 08/28/11 07/16/22 documented as of this encounter
--- OUTSIDE RECORDS SUMMARY | 2024-07-15 17:21 | XMS_ITS | Encounter Summary ---
Author Organization [facility] Address [address] [facility] [place] [address] [place] [address] Care Team Providers Care Marine Scientist Name Role Phone Jared Abrams MD Primary Care Provider [phone] Encounter Details Date Type Department Care Team (Late st Contact Info) Description 06/26/2011 Abstract [facility] [address] [place] [address] David Foy, WELD ENGINEER 2[address] [place], [place] [address] Social History Tobacco Use Types Packs/Day Years [...] st Contact Info) Description 08/03/2024 2:00 PM CHEMICALS DISTILLER Appointment [facility] One Day Services [address] [place] [address] Josué Cook MD [address] [address] documented as of this encounter Visit Diagnoses Diagnosis Other screening mammogram documented in this encounter Care Teams Marine Scientist Relationship Specialty Start Date End Date Jared Abrams MD PCP - General 08/28/11 07/16/22 documented as of this encounter
--- OUTSIDE RECORDS SUMMARY | 2024-07-15 17:21 | XMS_ITS | Encounter Summary ---
Author Organization [facility] Address [address] [facility] [place] [place] [address] [place] [address] Care Team Providers Care Marketing Agent Name Role Phone Jared Abrams MD Primary Care Provider [phone] Encounter Details Date Type Department Care Team (Late Contact Info) Description 12/01/2009 Abstract [facility] CONVERSION [address] [place] [address] David Foy, CHILDREN'S AIDE [address] [place], [place] [address] Social History Tobacco Use Types Packs/Day Years [...] (Late Contact Info) Description 08/03/2024 2:00 PM WELL PULLER HEAD Appointment [facility] One Day Services [address] [facility] [place] [address] Josué Cook MD [address] [address] documented as of this encounter Visit Diagnoses Not on filedocumented in this encounter Care Teams Marketing Agent Relationship Specialty Start Date End Date Jared Abrams MD PCP - General 08/28/11 07/16/22 documented as of this encounter
--- OUTSIDE RECORDS SUMMARY | 2024-07-15 17:21 | XMS_ITS | Encounter Summary ---
Author Organization [facility] Address [address] [facility] [place] [address] [place] [address] Care Team Providers Care Soft Boarder Name Role Phone Jared Abrams MD Primary Care Provider [phone] Encounter Details Date Type Department Care Team (Late st Contact Info) Description 07/18/2010 Abstract [facility] [address] [place] [address] Esperanza Crane PA 1212 [place] [address] Social History Tobacco Use Types Packs/Day Years [...] st Contact Info) Description 08/03/2024 2:00 PM DREDGE ENGINEER Appointment [facility] [address] [place] [address] Josué Cook MD [address] [place] [address] documented as of this encounter Visit Diagnoses Diagnosis Senile osteoporosis documented in this encounter Care Teams Soft Boarder Relationship Specialty Start Date End Date Jared Abrams MD PCP - General 08/28/11 07/16/22 documented as of this encounter
--- OUTSIDE RECORDS SUMMARY | 2024-07-15 17:21 | XMS_ITS | Encounter Summary ---
Author Organization [facility] Address [address] [place] [address] [place] [address] Care Team Providers Care Shipboard Intelligence Analyst Name Role Phone Jared Abrams MD Primary Care Provider [phone] Encounter Details Date Type Department Care Team (Late Contact Info) Description 01/09/2009 Abstract [facility] CONVERSION [address] [place] [address] David Foy, TRAIN RESERVATION CLERK [address] [place], [place] [address] Social History Tobacco Use Types Packs/Day Years [...] (Late Contact Info) Description 08/03/2024 2:00 PM MOTOR WINDER Appointment [facility] One Day Services [address] [facility] [place] [address] Josué Cook MD [address] [address] documented as of this encounter Visit Diagnoses Not on filedocumented in this encounter Care Teams Shipboard Intelligence Analyst Relationship Specialty Start Date End Date Jared Abrams MD PCP - General 08/28/11 07/16/22 documented as of this encounter
--- OUTSIDE RECORDS SUMMARY | 2024-07-15 17:21 | XMS_ITS | Encounter Summary ---
Author Organization [facility] Address [address] [facility] [place] [address] [place] [address] Care Team Providers Care Advertising Photographer Name Role Phone Jared Abrams MD Primary Care Provider [phone] Encounter Details Date Type Department Care Team (Late Contact Info) Description 11/23/2009 Abstract [facility] [address]15 [place] [address] Scar Diaz MD [address] [place] [address] Social History Tobacco Use Types Packs/Day Years [...] (Late Contact Info) Description 08/03/2024 2:00 PM CAREER AND TRANSITION TEACHER Appointment [facility] Day [facility] [address] [place], [place] [address] Josué Cook MD [address] [facility] 8 [place] [address] documented as of this encounter Visit Diagnoses Not on filedocumented in this encounter Care Teams Advertising Photographer Relationship Specialty Start Date End Date Jared Abrams MD PCP - General 08/28/11 07/16/22 documented as of this encounter
--- OUTSIDE RECORDS SUMMARY | 2024-07-15 17:21 | XMS_ITS | Encounter Summary ---
Author Organization [facility] Address [address] [place] [address] [place] [address] Care Team Providers Care Tempering Machine Operator Name Role Phone Jared Abrams MD Primary Care Provider [phone] Encounter Details Date Type Department Care Team (Late Contact Info) Description 09/23/2008 Abstract [facility] One Day Services [address] [place] [address] Vladimir Parsons MD [address] [address] Social History Tobacco Use Types Packs/Day Years [...] (Late Contact Info) Description 08/03/2024 2:00 PM LOG HANDLER Appointment [facility] Day Services [address] [place] [address] Josué Cook MD [facility] [address] documented as of this encounter Visit Diagnoses Not on filedocumented in this encounter Care Teams Tempering Machine Operator Relationship Specialty Start Date End Date Jared Abrams MD PCP - General 08/28/11 07/16/22 documented as of this encounter
--- OUTSIDE RECORDS SUMMARY | 2024-07-15 17:22 | XMS_ITS | Encounter Summary ---
Author Organization [facility] Address [address] [facility] [place] [address] [place] [address] Care Team Providers Care Black Puller Name Role Phone Jared Abrams MD Primary Care Provider [phone] Encounter Details Date Type Department Care Team (Late Contact Info) Description 12/25/2004 Abstract [facility] CONVERSION [address] [facility] [place] [address] Scar Diaz MD [address] [place] [address] Social History Tobacco Use Types Packs/Day Years [...] (Late Contact Info) Description 08/03/2024 2:00 PM CROZE CUTTER HELPER Appointment [facility] One Day Services [address] [place] [address] Josué Cook MD [address] [place] [address] 8 [place] [address] documented as of this encounter Visit Diagnoses Not on filedocumented in this encounter Care Teams Black Puller Relationship Specialty Start Date End Date Jared Abrams MD PCP - General 08/28/11 07/16/22 documented as of this encounter
--- OUTSIDE RECORDS SUMMARY | 2024-07-15 17:22 | XMS_ITS | Encounter Summary ---
Author Organization [facility] Address [address] [facility] [place] [address] [place] [address] Care Team Providers Care Garde Manger Name Role Phone Jared Abrams MD Primary Care Provider [phone] Encounter Details Date Type Department Care Team (Late Contact Info) Description 08/19/2006 Abstract [facility] CONVERSION [address] [place] [address] Scar Diaz MD [address] [place] [address] Social History Tobacco Use Types Packs/Day Years [...] (Late Contact Info) Description 08/03/2024 2:00 PM SALES EXECUTIVE INSURANCE Appointment [facility] One Day Services [address] [place] [address] Josué Cook MD [address] [place] [address] 8 [place] [address] documented as of this encounter Visit Diagnoses Not on filedocumented in this encounter Care Teams Garde Manger Relationship Specialty Start Date End Date Jared Abrams MD PCP - General 08/28/11 07/16/22 documented as of this encounter
--- OUTSIDE RECORDS SUMMARY | 2024-07-15 17:22 | XMS_ITS | Encounter Summary ---
Author Organization [facility] Address [address] [facility] [place] [address] [place] [address] Care Team Providers Care Poacher Operator Name Role Phone Jared Abrams MD Primary Care Provider [phone] Encounter Details Date Type Department Care Team (Late Contact Info) Description 09/14/2007 Abstract [facility] CONVERSION [address] [place] [address] Jared Abrams MD 1212 [place] [address] Social History Tobacco Use Types Packs/Day Years [...] (Late Contact Info) Description 08/03/2024 2:00 PM WEAVE DEFECT CHARTING CLERK Appointment [facility] One Day Services [address] [place] [address] Josué Cook MD [address] [place] [address] documented as of this encounter Visit Diagnoses Not on filedocumented in this encounter Care Teams Poacher Operator Relationship Specialty Start Date End Date Jared Abrams MD PCP - General 08/28/11 07/16/22 documented as of this encounter
--- OUTSIDE RECORDS SUMMARY | 2024-07-15 17:22 | XMS_ITS | Encounter Summary ---
Author Organization [facility] Address [address] [facility] [place] [address] [place] [address] Care Team Providers Care Machine Stone Polisher Name Role Phone Jared Abrams MD Primary Care Provider [phone] Encounter Details Date Type Department Care Team (Late Contact Info) Description 2006 Abstract [facility] CONVERSION 9515 [place] [address] Scar Diaz MD [address] [place] [address] Social History Tobacco Use Types Packs/Day Years [...] (Late Contact Info) Description 08/03/2024 2:00 PM CUTTER PLASTICS ROLLS Appointment [facility] Day [facility] [address] [place] [phone] Josué Cook MD [address] [facility] 8 [place] [address] documented as of this encounter Visit Diagnoses Not on filedocumented in this encounter Care Teams Machine Stone Polisher Relationship Specialty Start Date End Date Jared Abrams MD PCP - General 08/28/11 07/16/22 documented as of this encounter
--- OUTSIDE RECORDS SUMMARY | 2024-07-15 17:22 | XMS_ITS | Encounter Summary ---
Author Organization [facility] Address [address] [facility] [place] [address] [place] [address] Care Team Providers Care Manager Agricultural Name Role Phone Jared Abrams MD Primary Care Provider [phone] Encounter Details Date Type Department Care Team (Late Contact Info) Description 08/14/2006 Abstract [facility] CONVERSION 9515 [place] [address] Scar Diaz MD [address] [place] [address] Social History Tobacco Use Types Packs/Day Years [...] (Late Contact Info) Description 08/03/2024 2:00 PM GIVING OFFICER Appointment [facility] Day [facility] [address] [place], [place] [phone] Josué Cook MD [address] [facility] 8 [place] [address] documented as of this encounter Visit Diagnoses Not on filedocumented in this encounter Care Teams Manager Agricultural Relationship Specialty Start Date End Date Jared Abrams MD PCP - General 08/28/11 07/16/22 documented as of this encounter
--- OUTSIDE RECORDS SUMMARY | 2024-07-15 17:22 | XMS_ITS | Encounter Summary ---
Author Organization [facility] Address [address] [facility] [place] [place] [address] [place] [address] Care Team Providers Care Light Armored Reconnaissance Officer Name Role Phone Jared Abrams MD Primary Care Provider [phone] Encounter Details Date Type Department Care Team (Late Contact Info) Description 06/14/2004 Abstract [facility] CONVERSION 9515 [place] [address] Scar Diaz MD [address] [place] [address] Social History Tobacco Use Types Packs/Day Years [...] (Late Contact Info) Description 08/03/2024 2:00 PM RETURNING OFFICER Appointment [facility] Day [facility] [address] [place], [place] [phone] Josué Cook MD 49[address] [facility] 8 [place] [address] documented as of this encounter Visit Diagnoses Not on filedocumented in this encounter Care Teams Light Armored Reconnaissance Officer Relationship Specialty Start Date End Date Jared Abrams MD PCP - General 08/28/11 07/16/22 documented as of this encounter
--- OUTSIDE RECORDS SUMMARY | 2024-07-15 17:22 | XMS_ITS | Encounter Summary ---
Author Organization [facility] Address [address] [facility] [place] [address] [place] [address] Care Team Providers Care Interlibrary Loan Services Librarian Name Role Phone Jared Abrams MD Primary Care Provider [phone] Encounter Details Date Type Department Care Team (Late Contact Info) Description 09/06/2004 Abstract [facility] CONVERSION 9515 [place] [address] Scar Diaz MD [address] [place] [address] Social History Tobacco Use Types Packs/Day Years [...] (Late Contact Info) Description 08/03/2024 2:00 PM PROGRAM ENGAGEMENT DIRECTOR Appointment [facility] Day [facility] [address] [place], [place] [phone] Josué Cook MD [address] [facility] 8 [place] [address] documented as of this encounter Visit Diagnoses Not on filedocumented in this encounter Care Teams Interlibrary Loan Services Librarian Relationship Specialty Start Date End Date Jared Abrams MD PCP - General 08/28/11 07/16/22 documented as of this encounter
--- OUTSIDE RECORDS SUMMARY | 2024-07-15 17:22 | XMS_ITS | Encounter Summary ---
Author Organization [facility] Address [address] [facility] [place] [address] [place] [address] Care Team Providers Care Manifold Builder Name Role Phone Jared Abrams MD Primary Care Provider Encounter Details Date Type Department Care Team (Late Contact Info) Description 08/12/2006 Abstract [facility] CONVERSION 9515 [place] [address] Jared Abrams MD [facility] [place] [address] Social History Tobacco Use Types Packs/Day Years [...] (Late Contact Info) Description 08/03/2024 2:00 PM SPORTS BOOK WRITER Appointment [facility] Day [facility] [address] [place], [place] [phone] Jos[place]é [place] [address] [place] [address] documented as of this encounter Visit Diagnoses Not on filedocumented in this encounter Care Teams Manifold Builder Relationship Specialty Start Date End Date Jared Abrams MD PCP - General 08/28/11 07/16/22 documented as of this encounter
--- OUTSIDE RECORDS SUMMARY | 2024-07-15 17:22 | XMS_ITS | Encounter Summary ---
Author Organization [facility] Address [address] [place] [address] [place] [address] Care Team Providers Care Shank Sander Name Role Phone Jared Abrams MD Primary Care Provider [phone] Encounter Details Date Type Department Care Team (Late Contact Info) Description 03/19/2005 Abstract [facility] CONVERSION 9515 [place] [address] Scar Diaz MD [address] [place] [address] Social History Tobacco Use Types Packs/Day Years [...] (Late Contact Info) Description 08/03/2024 2:00 PM PHYSICIAN CREDENTIALING SPECIALIST Appointment [facility] Day [facility] [address] [place], [place] [phone] Josué Cook MD 49[address] [facility] 8 [place] [address] documented as of this encounter Visit Diagnoses Not on filedocumented in this encounter Care Teams Shank Sander Relationship Specialty Start Date End Date Jared Abrams MD PCP - General 08/28/11 07/16/22 documented as of this encounter
--- OUTSIDE RECORDS SUMMARY | 2024-07-15 17:22 | XMS_ITS | Encounter Summary ---
Author Organization [facility] Address [address] [facility] [place] [address] [place] [address] Care Team Providers Care Delivery And Installation Subcontractor Name Role Phone Jared Abrams MD Primary Care Provider [phone] Encounter Details Date Type Department Care Team (Late Contact Info) Description 11/24/2007 Abstract [facility] CONVERSION 9515 [place] [address] Jarde Abrams MD [facility]2 [place] [address] Social History Tobacco Use Types Packs/Day Years [...] (Late Contact Info) Description 08/03/2024 2:00 PM WEIGHT CONTROL ENGINEER Appointment [facility] Day [facility] [address] [place], [place] [phone] Josué [place] [address] [place] [address] documented as of this encounter Visit Diagnoses Not on filedocumented in this encounter Care Teams Delivery And Installation Subcontractor Relationship Specialty Start Date End Date Jared Abrams MD PCP - General 08/28/11 07/16/22 documented as of this encounter
--- OUTSIDE RECORDS SUMMARY | 2024-07-15 17:22 | XMS_ITS | Encounter Summary ---
Author Organization [facility] Address [address] [facility] [place] [address] [place] [address] Care Team Providers Care Media Assistant Name Role Phone Jared Abrams MD Primary Care Provider [phone] Encounter Details Date Type Department Care Team (Late Contact Info) Description 05/17/2004 Abstract [facility] CONVERSION 9515 [place] [address] Scar Diaz MD [address] [place] [address] Social History Tobacco Use Types Packs/Day Years [...] (Late Contact Info) Description 08/03/2024 2:00 PM WASH TANK TENDER Appointment [facility] Day [facility] [address] [place], [place] [phone] Josué Cook MD 49[address] [facility] 8 [place] [address] documented as of this encounter Visit Diagnoses Not on filedocumented in this encounter Care Teams Media Assistant Relationship Specialty Start Date End Date Jared Abrams MD PCP - General 08/28/11 07/16/22 documented as of this encounter
--- OUTSIDE RECORDS SUMMARY | 2024-07-15 17:22 | XMS_ITS | Encounter Summary ---
Author Organization [facility] Address [address] [place] [address] [place] [address] Care Team Providers Care Coronary Care Unit Nurse Name Role Phone Jared Abrams MD Primary Care Provider [phone] Encounter Details Date Type Department Care Team (Late Contact Info) Description 08/25/2006 Abstract [facility] CONVERSION [address] [place] [address] David Foy, IS SUPPORT ANALYST [address] [place], [place] [phone] Social History Tobacco Use Types Packs/Day Years [...] (Late Contact Info) Description 08/03/2024 2:00 PM MEDICARE INTERVIEWER Appointment [facility] One Day Services [address] [place] [address] Josué Cook MD [address] [address] documented as of this encounter Visit Diagnoses Not on filedocumented in this encounter Care Teams Coronary Care Unit Nurse Relationship Specialty Start Date End Date Jared Abrams MD PCP - General 08/28/11 07/16/22 documented as of this encounter
--- OUTSIDE RECORDS SUMMARY | 2024-07-15 17:22 | XMS_ITS | Encounter Summary ---
Author Organization [facility] Address [address] [facility] [place] [address] [place] [address] Care Team Providers Care Canvas Goods Supervisor Name Role Phone Jared Abrams MD Primary Care Provider [phone] Encounter Details Date Type Department Care Team (Late Contact Info) Description 05/20/2008 Abstract [facility] CONVERSION 9515 [place] [address] Scar Diaz MD [address] [place] [address] Social History Tobacco Use Types Packs/Day Years [...] (Late Contact Info) Description 08/03/2024 2:00 PM CAR WORKER Appointment [facility] Day [facility] [address] [place], [place] [address] Josué Cook MD 4921 [facility] 8 [place] [address] documented as of this encounter Visit Diagnoses Not on filedocumented in this encounter Care Teams Canvas Goods Supervisor Relationship Specialty Start Date End Date Jared Abrams MD PCP - General 08/28/11 07/16/22 documented as of this encounter
--- OUTSIDE RECORDS SUMMARY | 2024-07-15 17:22 | XMS_ITS | Encounter Summary ---
Author Organization [facility] Address [address] [place] [address] [place] [address] Care Team Providers Care Freight Handler Name Role Phone Jared Abrams MD Primary Care Provider [phone] Encounter Details Date Type Department Care Team (Late Contact Info) Description 08/14/2006 Abstract [facility] CONVERSION [address] [place] [address] David Foy, TOWER TRUCK DRIVER [address] [place], [place] [phone] Social History Tobacco Use Types Packs/Day Years [...] (Late Contact Info) Description 08/03/2024 2:00 PM ELECTRICAL ENGINEERING PROFESSOR Appointment [facility] One Day Services [address] [place] [address] Josué Cook MD [address] [address] documented as of this encounter Visit Diagnoses Not on filedocumented in this encounter Care Teams Freight Handler Relationship Specialty Start Date End Date Jared Abrams MD PCP - General 08/28/11 07/16/22 documented as of this encounter
--- OUTSIDE RECORDS SUMMARY | 2024-07-15 17:22 | XMS_ITS | Encounter Summary ---
Author Organization [facility] Address [address] [place] [address] [place] [address] Care Team Providers Care Experimental Psychologist Name Role Phone Jared Abrams MD Primary Care Provider [phone] Encounter Details Date Type Department Care Team (Late Contact Info) Description 05/29/2004 Abstract [facility] CONVERSION [address] [facility] [place] [address] Scar Diaz MD [address] [place] [phone] Social History Tobacco Use Types Packs/Day Years [...] (Late Contact Info) Description 08/03/2024 2:00 PM MOTORCYCLE SERVICE TECHNICIAN Appointment [facility] One Day Services [address] [place] [address] Josué Cook MD [address] [place] [address] 8 [place] [address] documented as of this encounter Visit Diagnoses Not on filedocumented in this encounter Care Teams Experimental Psychologist Relationship Specialty Start Date End Date Jared Abrams MD PCP - General 08/28/11 07/16/22 documented as of this encounter
--- OUTSIDE RECORDS SUMMARY | 2024-07-15 17:22 | XMS_ITS | Encounter Summary ---
Author Organization [facility] Address [address] [facility] [place] [address] [place] [address] Care Team Providers Care Noise Tester Name Role Phone Jared Abrams MD Primary Care Provider [phone] Encounter Details Date Type Department Care Team (Late st Contact Info) Description 08/08/2005 Abstract [facility] [place] [facility] Conversion , Generic ConversionMD Social History [...] st Contact Info) Description 08/03/2024 2:00 PM WOODS OVERSEER Appointment [facility] One Day [facility] [address] [place] [address] Josué Cook MD [address] [address] documented as of this encounter Visit Diagnoses Not on filedocumented in this encounter Care Teams Noise Tester Relationship Specialty Start Date End Date Jared Abrams MD PCP - General 08/28/11 07/16/22 documented as of this encounter
--- OUTSIDE RECORDS SUMMARY | 2024-07-15 17:22 | XMS_ITS | Encounter Summary ---
Author Organization [facility] Address [address] [facility] [place] [address] [place] [address] Care Team Providers Care Brass And Wind Instrument Repairer Name Role Phone Jared Abrams MD Primary Care Provider [phone] Encounter Details Date Type Department Care Team (Late Contact Info) Description 07/25/2004 Abstract [facility] CONVERSION [address] [place] [address] Jared Abrams MD 1212 [place] [address] Social History Tobacco Use Types Packs/Day Years [...] (Late Contact Info) Description 08/03/2024 2:00 PM GLASSWARE FINISHER Appointment [facility] One Day Services [address] [place] [address] Josué Cook MD [address] [place] [address] documented as of this encounter Visit Diagnoses Not on filedocumented in this encounter Care Teams Brass And Wind Instrument Repairer Relationship Specialty Start Date End Date Jared Abrams MD PCP - General 08/28/11 07/16/22 documented as of this encounter
--- OUTSIDE RECORDS SUMMARY | 2024-07-15 17:22 | XMS_ITS | Encounter Summary ---
Author Organization [facility] Address [address] [facility] [place] [address] [place] [address] Care Team Providers Care Librarian Head Name Role Phone Jared Abrams MD Primary Care Provider [phone] Encounter Details Date Type Department Care Team (Late Contact Info) Description 05/19/2007 Abstract [facility] CON[facility] [address] [place] [address] Marii Rhodes PA-C [address] [place] [address] Social History Tobacco Use Types Packs/Day Years [...] st Contact Info) Description 08/03/2024 2:00 PM METHODS TIME ANALYST Appointment [facility] One Day Services [address] [facility] [place] [address] Josué Cook MD [facility] 8 [place] [address] documented as of this encounter Visit Diagnoses Not on filedocumented in this encounter Care Teams Librarian Head Relationship Specialty Start Date End Date Jared Abrams MD PCP - General 08/28/11 07/16/22 documented as of this encounter
--- OUTSIDE RECORDS SUMMARY | 2024-07-15 17:22 | XMS_ITS | Encounter Summary ---
Author Organization [facility] Address [address] [facility] [place] [address] [place] [address] Care Team Providers Care Family Protection Specialist Name Role Phone Jared Abrams MD Primary Care Provider [phone] Encounter Details Date Type Department Care Team (Late Contact Info) Description 07/26/2005 Abstract [facility] CONVERSION [address] [place] [address] Jared Abrams MD 1212 [place] [address] Social History Tobacco Use Types Packs/Day Years [...] (Late Contact Info) Description 08/03/2024 2:00 PM HAIRSPRING II INSPECTOR Appointment [facility] One Day Services [address] [place] [address] Josué Cook MD [address] [place] [address] documented as of this encounter Visit Diagnoses Not on filedocumented in this encounter Care Teams Family Protection Specialist Relationship Specialty Start Date End Date Jared Abrams MD PCP - General 08/28/11 07/16/22 documented as of this encounter
--- OUTSIDE RECORDS SUMMARY | 2024-07-15 17:22 | XMS_ITS | Encounter Summary ---
Author Organization [facility] Address [address] [place] [address] [place] [address] Care Team Providers Care Tour Production Supervisor Name Role Phone Jared Abrams MD Primary Care Provider [phone] Encounter Details Date Type Department Care Team (Late Contact Info) Description 08/28/2006 Abstract [facility] CONVERSION [address] [facility] [place] [address] Scar Diaz MD [address] [place] [address] Social History Tobacco Use Types Packs/Day Years [...] (Late Contact Info) Description 08/03/2024 2:00 PM CHIEF ENTERPRISE ARCHITECT Appointment [facility] One Day Services [address] [place] [address] Josué Cook MD [address] [place] [address] 8 [place] [address] documented as of this encounter Visit Diagnoses Not on filedocumented in this encounter Care Teams Tour Production Supervisor Relationship Specialty Start Date End Date Jared Abrams MD PCP - General 08/28/11 07/16/22 documented as of this encounter
--- OUTSIDE RECORDS SUMMARY | 2024-07-15 17:22 | XMS_ITS | Encounter Summary ---
Author Organization [facility] Address [address] [facility] [place] [address] [place] [address] Care Team Providers Care Reconnaissance Man Name Role Phone Jared Abrams MD Primary Care Provider [phone] Encounter Details Date Type Department Care Team (Late Contact Info) Description 09/29/2006 Abstract [facility] CONVERSION [address] [place] [address] Scar Diaz MD [address] [place] [address] Social History Tobacco Use Types Packs/Day Years [...] (Late Contact Info) Description 08/03/2024 2:00 PM CONCHE OPERATOR Appointment [facility] One Day Services [address] [place] [address] Josué Cook MD [address] [place] [address] 8 [place] [address] documented as of this encounter Visit Diagnoses Not on filedocumented in this encounter Care Teams Reconnaissance Man Relationship Specialty Start Date End Date Jared Abrams MD PCP - General 08/28/11 07/16/22 documented as of this encounter
--- OUTSIDE RECORDS SUMMARY | 2024-07-15 17:22 | XMS_ITS | Encounter Summary ---
Author Organization [facility] Address [address] [facility] [place] [address] [place] [address] Care Team Providers Care Office Assistant Name Role Phone Jared Abrams MD Primary Care Provider [phone] Encounter Details Date Type Department Care Team (Late Contact Info) Description 08/07/2005 Abstract [facility] CONVERSION 9515 [place] [address] Jared Abrams MD [facility] [place] [address] Social History Tobacco Use Types Packs/Day Years [...] (Late Contact Info) Description 08/03/2024 2:00 PM DAIRY CHEMIST Appointment [facility] Day [facility] [address] [place], [place] [address] [place]é [place] [address] [place] [address] documented as of this encounter Visit Diagnoses Not on filedocumented in this encounter Care Teams Office Assistant Relationship Specialty Start Date End Date Jared Abrams MD PCP - General 08/28/11 07/16/22 documented as of this encounter
--- OUTSIDE RECORDS SUMMARY | 2024-07-15 17:22 | XMS_ITS | Encounter Summary ---
Author Organization [facility] Address [address] [facility] [place] [address] [place] [address] Care Team Providers Care Plant Engineering Supervisor Name Role Phone Jared Abrams MD Primary Care Provider [phone] Encounter Details Date Type Department Care Team (Late Contact Info) Description 07/18/2004 Abstract [facility] CONVERSION 9515 [place] [address] Jared Abrams MD [facility] [place] [address] Social History Tobacco Use Types Packs/Day Years [...] (Late Contact Info) Description 08/03/2024 2:00 PM VALUE STREAM COACH Appointment [facility] Day [facility] [address] [place], [place] [phone] Josué [place] [address] [place] [address] documented as of this encounter Visit Diagnoses Not on filedocumented in this encounter Care Teams Plant Engineering Supervisor Relationship Specialty Start Date End Date Jared Abrams MD PCP - General 08/28/11 07/16/22 documented as of this encounter
--- OUTSIDE RECORDS SUMMARY | 2024-07-15 17:23 | XMS_ITS | Encounter Summary ---
Author Organization [facility] Address [address] [facility] [place] [address] [place] [address] Care Team Providers Care Environmental Compliance Inspector Name Role Phone Jared Abrams MD Primary Care Provider [phone] Encounter Details Date Type Department Care Team (Late Contact Info) Description 08/18/2001 Abstract [facility] CONVERSION [address] [place] [address] , Generic ConversionMD Social History Tobacco Use [...] (Late Contact Info) Description 08/03/2024 2:00 PM TALLOW REFINER Appointment [facility] Services [address] [place] [address] Josué Cook MD [address] [address] documented as of this encounter Visit Diagnoses Not on filedocumented in this encounter Care Teams Environmental Compliance Inspector Relationship Specialty Start Date End Date Jared Abrams MD PCP - General 08/28/11 07/16/22 documented as of this encounter
--- OUTSIDE RECORDS SUMMARY | 2024-07-15 17:23 | XMS_ITS | Encounter Summary ---
Author Organization [facility] Address [address] [facility] [place] [address] [place] [address] Care Team Providers Care Skein Spooler Name Role Phone Jared Abrams MD Primary Care Provider Encounter Details Date Type Department Care Team (Late Contact Info) Description 11/11/2002 Abstract [facility] CONVERSION [address] [place] [address] , Generic ConversionMD Social History Tobacco Use [...] (Late Contact Info) Description 08/03/2024 2:00 PM HEALTH CARE MARKETING SPECIALIST Appointment [facility] Services [address] [place] [address] Josué Cook MD [address] [address] documented as of this encounter Visit Diagnoses Not on filedocumented in this encounter Care Teams Skein Spooler Relationship Specialty Start Date End Date Jared Abrams MD PCP - General 08/28/11 07/16/22 documented as of this encounter
--- OUTSIDE RECORDS SUMMARY | 2024-07-15 17:23 | XMS_ITS | Encounter Summary ---
Author Organization [facility] Address [address] [facility] [place] [address] [place] [address] Care Team Providers Care Pressed Or Blown Glass Worker Name Role Phone Jared Abrams MD Primary Care Provider [phone] Encounter Details Date Type Department Care Team (Late st Contact Info) Description 04/12/2004 Abstract [facility] Clinics Conversion , Generic ConversionMD [...] Contact Info) Description 08/03/2024 2:00 PM MANAGER PET Appointment [facility] One Day [facility] [address] [place] [address] Josué Cook MD [address] [address] documented as of this encounter Visit Diagnoses Not on filedocumented in this encounter Care Teams Pressed Or Blown Glass Worker Relationship Specialty Start Date End Date Jared Abrams MD PCP - General 08/28/11 07/16/22 documented as of this encounter
--- OUTSIDE RECORDS SUMMARY | 2024-07-15 17:23 | XMS_ITS | Encounter Summary ---
Author Organization [facility] Address [address] [facility] [address] [place] [address] Care Team Providers Care Best Second Jobs Name Role Phone Jared Abrams MD Primary Care Provider [phone] Encounter Details Date Type Department Care Team (Late st Contact Info) Description 04/19/2004 Abstract [facility] Conversion Lauro Becerra MD [address] [id number] Social History Tobacco Use Types Packs/Day Years [...] DEVICES FROM FEMUR / SANTHOSH Consultants: SANTHOSH NING BATH PERSON documented in this encounter Plan of Treatment Upcoming Encounters Date Type Department Care Team (Late st Contact Info) Description 08/03/2024 2:00 PM SPINNING BATH PERSON Appointment [facility] Day [facility] [address] [place] [address] Josué Cook MD [address] [facility] 8 [place] [address] documented as of this encounter Visit Diagnoses Not on filedocumented in this encounter Care Teams Best Second Jobs Relationship Specialty Start Date End Date Jared Abrams MD PCP - General 08/28/11 07/16/22 documented as of this encounter
--- OUTSIDE RECORDS SUMMARY | 2024-07-15 17:23 | XMS_ITS | Encounter Summary ---
Author Organization [facility] Address [address] [facility] [place] [address] [place] [address] Care Team Providers Care Highway Administrative Engineer Name Role Phone Jared Abrams MD Primary Care Provider [phone] Encounter Details Date Type Department Care Team (Late Contact Info) Description 04/23/[address] [facility] CONVERSION [address] [place] [address] Jared Abrams MD [address] [place] [address] Social History Tobacco Use Types Packs/Day Years [...] (Late Contact Info) Description 08/03/2024 2:00 PM ROLLER SKATE ASSEMBLER Appointment [facility] One Day Services [address] [place], [place] [id number] Josué Cook MD [address] [place] [address] documented as of this encounter Visit Diagnoses Not on filedocumented in this encounter Care Teams Highway Administrative Engineer Relationship Specialty Start Date End Date Jared Abrams MD PCP - General 08/28/11 07/16/22 documented as of this encounter
--- OUTSIDE RECORDS SUMMARY | 2024-07-15 17:23 | XMS_ITS | Encounter Summary ---
Author Organization [facility] Address [address] [facility] [place] [address] [place] [address] Care Team Providers Care Wildlife Enforcement Major Name Role Phone Jared Abrams MD Primary Care Provider [phone] Encounter Details Date Type Department Care Team (Late st Contact Info) Description 04/21/2004 Abstract [facility] Clinics Conversion [...] Contact Info) Description 08/03/2024 2:00 PM RESEARCH TECHNOLOGIST Appointment [facility] One Day [facility] [address] [place] [address] Josué Cook MD [address] [address] documented as of this encounter Visit Diagnoses Not on filedocumented in this encounter Care Teams Wildlife Enforcement Major Relationship Specialty Start Date End Date Jared Abrams MD PCP - General 08/28/11 07/16/22 documented as of this encounter
--- OUTSIDE RECORDS SUMMARY | 2024-07-15 17:23 | XMS_ITS | Encounter Summary ---
Author Organization [facility] Address [address] [facility] [place] [address] [place] [address] Care Team Providers Care Customer Care Coordinator Name Role Phone Jared Abrams MD Primary Care Provider [phone] Encounter Details Date Type Department Care Team (Late st Contact Info) Description 10/27/2003 Abstract [facility] Clinics Conversion , Generic ConversionMD [...] st Contact Info) Description 08/03/2024 2:00 PM UPHOLSTERER APPRENTICE Appointment [facility] One Day [facility] [address] [place] [address] Josué Cook MD [address] [address] documented as of this encounter Visit Diagnoses Not on filedocumented in this encounter Care Teams Customer Care Coordinator Relationship Specialty Start Date End Date Jared Abrams MD PCP - General 08/28/11 07/16/22 documented as of this encounter
--- OUTSIDE RECORDS SUMMARY | 2024-07-15 17:23 | XMS_ITS | Encounter Summary ---
Author Organization [facility] Address [address] [place] [place] [address] [place] [address] Care Team Providers Care Breed To Wean Production Technician Name Role Phone Jared Abrams MD Primary Care Provider [phone] Encounter Details Date Type Department Care Team (Late st Contact Info) Description 10/06/2003 Abstract [facility] Clinics Conversion , Generic ConversionMD Social [...] st Contact Info) Description 08/03/2024 2:00 PM LAUNDRY ROUTE DRIVER Appointment [facility] One Day [facility] [address] [place] [address] Josué Cook MD [address] [address] documented as of this encounter Visit Diagnoses Not on filedocumented in this encounter Care Teams Breed To Wean Production Technician Relationship Specialty Start Date End Date Jared Abrams MD PCP - General 08/28/11 07/16/22 documented as of this encounter
--- OUTSIDE RECORDS SUMMARY | 2024-07-15 17:23 | XMS_ITS | Encounter Summary ---
Author Organization [facility] Address [address] [facility] [address] [place] [address] Care Team Providers Care Factorer Name Role Phone Jared Abrams MD Primary Care Provider Encounter Details Date Type Department Care Team (Late Contact Info) Description 03/12/2004 Abstract [facility] CONVERSION [address] [place] [address] Jared Abrams MD [address] [place] [address] Social History Tobacco Use Types Packs/Day Years [...] (Late Contact Info) Description 08/03/2024 2:00 PM MANAGER ORACLE RETAIL Appointment [facility] One Day Services [address] [place] [address] Josué oCok MD [address] [place] [address] documented as of this encounter Visit Diagnoses Not on filedocumented in this encounter Care Teams Factorer Relationship Specialty Start Date End Date Jared Abrams MD PCP - General 08/28/11 07/16/22 documented as of this encounter
--- OUTSIDE RECORDS SUMMARY | 2024-07-15 17:23 | XMS_ITS | Encounter Summary ---
Author Organization [facility] Address [address] [facility] [place] [address] [place] [address] Care Team Providers Care Joint Special Operations Name Role Phone Jared Abrams MD Primary Care Provider [phone] Encounter Details Date Type Department Care Team (Late Contact Info) Description 07/12/2003 Abstract [facility] CONVERSION [address] [place] [address] , Generic ConversionMD Social History Tobacco Use [...] (Late Contact Info) Description 08/03/2024 2:00 PM BODY REPAIRER Appointment [facility] Services [address] [place] [address] Josué Cook MD [address] [address] documented as of this encounter Visit Diagnoses Not on filedocumented in this encounter Care Teams Joint Special Operations Relationship Specialty Start Date End Date Jared Abrams MD PCP - General 08/28/11 07/16/22 documented as of this encounter
--- OUTSIDE RECORDS SUMMARY | 2024-07-15 17:23 | XMS_ITS | Encounter Summary ---
Author Organization [facility] Address [address] [place] [address] [place] [address] Care Team Providers Care Crawler Crane Operator Name Role Phone Jared Abrams MD Primary Care Provider [phone] Encounter Details Date Type Department Care Team (Late Contact Info) Description 05/29/1998 Abstract [facility] CONVERSION [address] [place] [address] , Generic ConversionMD Social History Tobacco Use [...] Contact Info) Description 08/03/2024 2:00 PM MANAGER LANDSCAPE Appointment [facility] Services [address] [place] [address] Josué Cook MD [address] [address] documented as of this encounter Visit Diagnoses Not on filedocumented in this encounter Care Teams Crawler Crane Operator Relationship Specialty Start Date End Date Jared Abrams MD PCP - General 08/28/11 07/16/22 documented as of this encounter
--- OUTSIDE RECORDS SUMMARY | 2024-07-15 17:23 | XMS_ITS | Encounter Summary ---
Author Organization [facility] Address [address] [facility] [place] [address] [place] [address] Care Team Providers Care Emergency Room Clerk Name Role Phone Jared Abrams MD Primary Care Provider [phone] Encounter Details Date Type Department Care Team (Late Contact Info) Description 06/09/2000 Abstract [facility] CONVERSION [address] [place] [address] , Generic ConversionMD Social History Tobacco Use [...] (Late Contact Info) Description 08/03/2024 2:00 PM NICKER AND BREAKER Appointment [facility] Services [address] [place] [address] Josué Cook MD [address] [address] documented as of this encounter Visit Diagnoses Not on filedocumented in this encounter Care Teams Emergency Room Clerk Relationship Specialty Start Date End Date Jared Abrams MD PCP - General 08/28/11 07/16/22 documented as of this encounter
--- OUTSIDE RECORDS SUMMARY | 2024-07-15 17:23 | XMS_ITS | Encounter Summary ---
Author Organization [facility] Address [address] [facility] [place] [address] [place] [address] Care Team Providers Care Coating Technician Name Role Phone Jared Abrams MD Primary Care Provider [phone] Servando Torre MD Primary Care Provider [phone] Encounter Details Date Type Department Care Team (Late st Contact Info) Description 09/26/2003 Abstract [facility] Clinics Conversion , Generic Conversion, Social History [...] st Contact Info) Description 08/03/2024 2:00 PM FRUIT CHECKER Appointment [facility] Day [facility] [address] [place] [address] Josué Cook MD [address] [facility] [address] [place] [address] documented as of this encounter Visit Diagnoses Not on filedocumented in this encounter Care Teams Coating Technician Relationship Specialty Start Date End Date Jared Abrams MD PCP - General 08/28/11 07/16/22 Servando Torre MD [address] [facility] [place] [address] PCP - General FAMILY PRACTICE 07/17/22 documented as of this encounter
--- OUTSIDE RECORDS SUMMARY | 2024-07-15 17:23 | XMS_ITS | Encounter Summary ---
Author Organization [facility] Address [address] [facility] [place] [address] [place] [address] Care Team Providers Care Mail Manager Name Role Phone Jared Abrams MD Primary Care Provider [phone] Encounter Details Date Type Department Care Team (Late Contact Info) Description 10/06/2003 Abstract [facility] CONVERSION [address] [place] [address] , Generic Conversion, Social History Tobacco Use [...] (Late Contact Info) Description 08/03/2024 2:00 PM PURCHASING AGENT Appointment [facility] [address] [place] [address] Josué Cook MD [address] [address] documented as of this encounter Visit Diagnoses Not on filedocumented in this encounter Care Teams Mail Manager Relationship Specialty Start Date End Date Jared Abrams MD PCP - General 08/28/11 07/16/22 documented as of this encounter
--- OUTSIDE RECORDS SUMMARY | 2024-07-15 17:23 | XMS_ITS | Encounter Summary ---
Author Organization [facility] Address [address] [facility] [place] [address] [place] [address] Care Team Providers Care Special Events Assistant Name Role Phone Jared Abrams MD Primary Care Provider [phone] Encounter Details Date Type Department Care Team (Late Contact Info) Description 07/15/2003 Abstract [facility] CONVERSION [address] [place] [address] , Generic Conversion, Social History Tobacco Use [...] (Late Contact Info) Description 08/03/2024 2:00 PM CRADLE SLIDE MAKER Appointment [facility] [address] [place] [address] Josué Cook MD [address] [address] documented as of this encounter Visit Diagnoses Not on filedocumented in this encounter Care Teams Special Events Assistant Relationship Specialty Start Date End Date Jared Abrams MD PCP - General 08/28/11 07/16/22 documented as of this encounter
--- OUTSIDE RECORDS SUMMARY | 2024-07-15 17:23 | XMS_ITS | Encounter Summary ---
Author Organization [facility] Address [address] [facility] [place] [address] [place] [address] Care Team Providers Care Hand Hose Cutter Name Role Phone Jared Abrams MD Primary Care Provider [phone] Encounter Details Date Type Department Care Team (Late Contact Info) Description 06/05/1999 Abstract [facility] CONVERSION [address] [place] [address] , Generic ConversionMD Social History Tobacco Use [...] Contact Info) Description 08/03/2024 2:00 PM CHIEF DIGITAL MEDIA OFFICER Appointment [facility] Services [address] [place] [address] Josué Cook MD [address] [address] documented as of this encounter Visit Diagnoses Not on filedocumented in this encounter Care Teams Hand Hose Cutter Relationship Specialty Start Date End Date Jared Abrams MD PCP - General 08/28/11 07/16/22 documented as of this encounter
--- OUTSIDE RECORDS SUMMARY | 2024-07-15 17:23 | XMS_ITS | Encounter Summary ---
Author Organization [facility] Address [address] [facility] [place] [address] [place] [address] Care Team Providers Care Software Reliability Engineer Name Role Phone Jared bArams MD Primary Care Provider [phone] Encounter Details Date Type Department Care Team (Late Contact Info) Description 11/24/2001 Abstract [facility] CONVERSION [address] [place] [address] , Generic ConversionMD Social History Tobacco Use [...] (Late Contact Info) Description 08/03/2024 2:00 PM WIND TECHNICIAN Appointment [facility] Services [address] [place] [address] Josué Cook MD [address] [address] documented as of this encounter Visit Diagnoses Not on filedocumented in this encounter Care Teams Software Reliability Engineer Relationship Specialty Start Date End Date Jared Abrams MD PCP - General 08/28/11 07/16/22 documented as of this encounter
--- OUTSIDE RECORDS SUMMARY | 2024-07-15 17:23 | XMS_ITS | Encounter Summary ---
Author Organization [facility] Address [address] [facility] [place] [address] [place] [address] Care Team Providers Care Promotions Manager Name Role Phone Jared Abrams MD Primary Care Provider [phone] Encounter Details Date Type Department Care Team (Late Contact Info) Description 02/23/2004 Abstract [facility] CONVERSION [address] [place] [address] Scar Diaz MD [address] [place] [address] Social History Tobacco Use Types Packs/Day Years [...] (Late Contact Info) Description 08/03/2024 2:00 PM INTERNAL CONTROLS CONSULTANT Appointment [facility] Day [facility] [address] [place], [place] [id number] Josué Cook MD [address] [facility] 8 [place] [address] documented as of this encounter Visit Diagnoses Not on filedocumented in this encounter Care Teams Promotions Manager Relationship Specialty Start Date End Date Jarde Abrams MD PCP - General 08/28/11 07/16/22 documented as of this encounter
--- OUTSIDE RECORDS SUMMARY | 2024-07-15 17:23 | XMS_ITS | Encounter Summary ---
Author Organization [facility] Address [address] [place] [address] [place] [address] Care Team Providers Care Quilter Fixer Name Role Phone Jared Abrams MD Primary Care Provider [phone] Encounter Details Date Type Department Care Team (Late Contact Info) Description 12/10/1993 Abstract [facility] CONVERSION [address] [place] [address] , Generic ConversionMD Social History Tobacco Use [...] (Late Contact Info) Description 08/03/2024 2:00 PM ENRICHMENT ASSISTANT Appointment [facility] Services [address] [place] [address] Josué Cook MD [address] [address] documented as of this encounter Visit Diagnoses Not on filedocumented in this encounter Care Teams Quilter Fixer Relationship Specialty Start Date End Date Jared Abrams MD PCP - General 08/28/11 07/16/22 documented as of this encounter
--- OUTSIDE RECORDS SUMMARY | 2024-07-15 17:23 | XMS_ITS | Encounter Summary ---
Author Organization [facility] Address [address] [facility] [place] [address] [place] [address] Care Team Providers Care Suction Drum Drier Operator Name Role Phone Jared Abrams MD Primary Care Provider [phone] Encounter Details Date Type Department Care Team (Late Contact Info) Description 01/21/1995 Abstract [facility] CONVERSION [address] [place] [address] , Generic ConversionMD Social History Tobacco Use [...] (Late Contact Info) Description 08/03/2024 2:00 PM FAST FOOD SALES ASSISTANT Appointment [facility] Services [address] [place] [address] Josué Cook MD [address] [address] documented as of this encounter Visit Diagnoses Not on filedocumented in this encounter Care Teams Suction Drum Drier Operator Relationship Specialty Start Date End Date Jared Abrams MD PCP - General 08/28/11 07/16/22 documented as of this encounter
--- OUTSIDE RECORDS SUMMARY | 2024-07-15 17:23 | XMS_ITS | Encounter Summary ---
Author Organization [facility] Address [address] [facility] [place] [address] [place] [address] Care Team Providers Care Jigger Crown Pouncing Machine Operator Name Role Phone Jared Abrams MD Primary Care Provider [phone] Encounter Details Date Type Department Care Team (Late Contact Info) Description 10/04/2003 Abstract [facility] CONVERSION [address] [place] [address] , Generic ConversionMD Social History Tobacco Use [...] (Late Contact Info) Description 08/03/2024 2:00 PM MEMBERSHIP CORRESPONDENT Appointment [facility] Services [address] [place] [address] Josué Cook MD [address] [address] documented as of this encounter Visit Diagnoses Not on filedocumented in this encounter Care Teams Jigger Crown Pouncing Machine Operator Relationship Specialty Start Date End Date Jared Abrams MD PCP - General 08/28/11 07/16/22 documented as of this encounter
--- OUTSIDE RECORDS SUMMARY | 2024-07-15 17:23 | XMS_ITS | Encounter Summary ---
Author Organization [facility] Address [address] [place] [address] [place] [address] Care Team Providers Care Copy Reader Name Role Phone Jared Abrams MD Primary Care Provider [phone] Encounter Details Date Type Department Care Team (Late Contact Info) Description 08/04/1999 Abstract [facility] CONVERSION [address] [place] [address] , Generic Conversion, Social History Tobacco Use [...] (Late Contact Info) Description 08/03/2024 2:00 PM OPERATION SHIFT SUPERVISOR Appointment [facility] [address] [place] [address] Josué Cook MD [address] [address] documented as of this encounter Visit Diagnoses Not on filedocumented in this encounter Care Teams Copy Reader Relationship Specialty Start Date End Date Jared Abrams MD PCP - General 08/28/11 07/16/22 documented as of this encounter
--- OUTSIDE RECORDS SUMMARY | 2024-07-15 17:23 | XMS_ITS | Encounter Summary ---
Author Organization [facility] Address [address] [facility] [place] [address] [place] [address] Care Team Providers Care Chemical Handler Name Role Phone Jared Abrams MD Primary Care Provider [phone] Encounter Details Date Type Department Care Team (Late Contact Info) Description 03/22/2004 Abstract [facility] CONVERSION [address] [place] [address] Scar Diaz MD [address] [place] [address] Social History Tobacco Use Types Packs/Day Years [...] (Late Contact Info) Description 08/03/2024 2:00 PM NATIONAL SALES Appointment [facility] Day [facility] [address] [place], [place] [id number] Josué Cook MD [address] [facility] 8 [place] [address] documented as of this encounter Visit Diagnoses Not on filedocumented in this encounter Care Teams Chemical Handler Relationship Specialty Start Date End Date Jared Abrams MD PCP - General 08/28/11 07/16/22 documented as of this encounter
--- OUTSIDE RECORDS SUMMARY | 2024-07-15 17:23 | XMS_ITS | Encounter Summary ---
Author Organization [facility] Address [address] [facility] [place] [address] [place] [address] Care Team Providers Care Test Case Developer Name Role Phone Jared Abrams MD Primary Care Provider [phone] Encounter Details Date Type Department Care Team (Late Contact Info) Description 04/28/2004 Abstract [facility] CONVERSION [address] [facility] [place] [address] Scar Diaz MD [address] [place] [address] [phone] Social History Tobacco Use Types Packs/Day Years [...] (Late Contact Info) Description 08/03/2024 2:00 PM WARP PLACER Appointment [facility] One Day Services [address] [place] [address] Josué Cook MD [address] [place] [address] 8 [place] [address] documented as of this encounter Visit Diagnoses Not on filedocumented in this encounter Care Teams Test Case Developer Relationship Specialty Start Date End Date Jared Abrams MD PCP - General 08/28/11 07/16/22 documented as of this encounter
--- OUTSIDE RECORDS SUMMARY | 2024-07-15 17:23 | XMS_ITS | Encounter Summary ---
Author Organization [facility] Address [address] [place] [address] [place] [address] Care Team Providers Care Cruller Maker Machine Name Role Phone Jared Abrams MD Primary Care Provider Encounter Details Date Type Department Care Team (Late Contact Info) Description 05/11/1996 Abstract [facility] CONVERSION [address] [place] [address] , Generic ConversionMD Social History Tobacco Use [...] (Late Contact Info) Description 08/03/2024 2:00 PM SWING MANAGER Appointment [facility] [address] [place] [address] Josué Cook MD [address] [address] documented as of this encounter Visit Diagnoses Not on filedocumented in this encounter Care Teams Cruller Maker Machine Relationship Specialty Start Date End Date Jared Abrams MD PCP - General 08/28/11 07/16/22 documented as of this encounter
--- OUTSIDE RECORDS SUMMARY | 2024-07-15 17:23 | XMS_ITS | Encounter Summary ---
Author Organization [facility] Address [address] [place] [address] [place] [address] Care Team Providers Care Manager English Name Role Phone Jared Abrams MD Primary Care Provider [phone] Encounter Details Date Type Department Care Team (Late Contact Info) Description 08/19/2000 Abstract [facility] CONVERSION 9515 [place] [address] , Generic Conversion, Social History Tobacco Use [...] (Late Contact Info) Description 08/03/2024 2:00 PM BOAT RIDE OPERATOR Appointment [facility] [address] [place] [address] Josué Cook MD [address] [address] documented as of this encounter Visit Diagnoses Not on filedocumented in this encounter Care Teams Manager English Relationship Specialty Start Date End Date Jared Abrams MD PCP - General 08/28/11 07/16/22 documented as of this encounter
--- OUTSIDE RECORDS SUMMARY | 2024-07-15 17:23 | XMS_ITS | Encounter Summary ---
Author Organization [facility] Address [address] [place] [address] [place] [address] Care Team Providers Care Universal Grinder Set Up Operator Name Role Phone Jared Abrams MD Primary Care Provider [phone] Encounter Details Date Type Department Care Team (Late Contact Info) Description 09/22/2003 Abstract [facility] CONVERSION [address]15 [place] [address] Bill Bhatia MD [address] [facility] [address] [place] [address] Social History Tobacco Use Types [...] (Late Contact Info) Description 08/03/2024 2:00 PM ABATTOIR SUPERVISOR Appointment [facility] Day [facility] [address] [place], [place] [id number] Josué Cook MD [address] [address] documented as of this encounter Visit Diagnoses Not on filedocumented in this encounter Care Teams Universal Grinder Set Up Operator Relationship Specialty Start Date End Date Jared Abrams MD PCP - General 08/28/11 07/16/22 documented as of this encounter
--- OUTSIDE RECORDS SUMMARY | 2024-07-15 17:23 | XMS_ITS | Encounter Summary ---
Author Organization [facility] Address [address] [place] [address] [place] [address] Care Team Providers Care Profiler Operator Name Role Phone Jared Abrams MD Primary Care Provider [phone] Encounter Details Date Type Department Care Team (Late Contact Info) Description 05/01/2004 Abstract [facility] CONVERSION [address] [place] [address] Scar Diaz MD [address] [place] [address] [phone] Social History Tobacco Use Types Packs/Day Years [...] (Late Contact Info) Description 08/03/2024 2:00 PM FOUNTAIN BRUSH ASSEMBLER Appointment [facility] One Day Services [address] [place] [address] Josué Cook MD [address] [place] [address] 8 [place] [address] documented as of this encounter Visit Diagnoses Not on filedocumented in this encounter Care Teams Profiler Operator Relationship Specialty Start Date End Date Jared Abrams MD PCP - General 08/28/11 07/16/22 documented as of this encounter
--- OUTSIDE RECORDS SUMMARY | 2024-07-15 17:23 | XMS_ITS | Encounter Summary ---
Author Organization [facility] Address [address] [facility] [place] [address] [place] [address] Care Team Providers Care Systems Librarian Name Role Phone Jared Abrams MD Primary Care Provider [phone] Encounter Details Date Type Department Care Team (Late Contact Info) Description 12/27/2003 Abstract [facility] CONVERSION [address] [place] [address] Jared Abrams MD 1212 [place] [address] Social History Tobacco Use Types Packs/Day Years [...] (Late Contact Info) Description 08/03/2024 2:00 PM BARREL BUNG REMOVER AND DUMPER Appointment [facility] One Day Services [address] [place] [address] Josué Cook MD [address] [place] [address] documented as of this encounter Visit Diagnoses Not on filedocumented in this encounter Care Teams Systems Librarian Relationship Specialty Start Date End Date Jarde Abrams MD PCP - General 08/28/11 07/16/22 documented as of this encounter
--- OUTSIDE RECORDS SUMMARY | 2024-07-15 17:23 | XMS_ITS | Encounter Summary ---
Author Organization [facility] Address [address] [facility] [place] [address] [place] [address] Care Team Providers Care Laundrette Owner Name Role Phone Jared Abrams MD Primary Care Provider [phone] Encounter Details Date Type Department Care Team (Late st Contact Info) Description 04/19/2004 Abstract [facility] Conversion , Generic ConversionMD Social History [...] st Contact Info) Description 08/03/2024 2:00 PM INSTRUMENTATION CHEMIST Appointment [facility] One Day [facility] [address] [place] [address] Josué Cook MD [address] [address] documented as of this encounter Visit Diagnoses Not on filedocumented in this encounter Care Teams Laundrette Owner Relationship Specialty Start Date End Date Jared Abrams MD PCP - General 08/28/11 07/16/22 documented as of this encounter
--- OUTSIDE RECORDS SUMMARY | 2024-07-15 17:23 | XMS_ITS | Encounter Summary ---
Author Organization [facility] Address [address] [facility] [place] [address] [place] [address] Care Team Providers Care Manager Transport Name Role Phone Jared Abrams MD Primary Care Provider [phone] Encounter Details Date Type Department Care Team (Late Contact Info) Description 05/09/2000 Abstract [facility] CONVERSION [address] [place] [address] , Generic ConversionMD Social History Tobacco Use [...] (Late Contact Info) Description 08/03/2024 2:00 PM COMMUNICATIONS SUPERINTENDENT Appointment [facility] Services [address] [address] Josué Cook MD [address] [address] documented as of this encounter Visit Diagnoses Not on filedocumented in this encounter Care Teams Manager Transport Relationship Specialty Start Date End Date Jared Abrams MD PCP - General 08/28/11 07/16/22 documented as of this encounter
--- OUTSIDE RECORDS SUMMARY | 2024-07-15 17:23 | XMS_ITS | Encounter Summary ---
Author Organization [facility] Address [address] [facility] [place] [address] [place] [address] Care Team Providers Care Contracts Administrator Name Role Phone Jared Abrams MD Primary Care Provider [phone] Encounter Details Date Type Department Care Team (Late Contact Info) Description 04/30/2004 Abstract [facility] CONVERSION [address] [facility] [place] [address] Scar Diaz MD [address] [place] [address] [phone] Social History Tobacco Use Types Packs/Day Years [...] (Late Contact Info) Description 08/03/2024 2:00 PM FERRYBOAT TICKET TAKER Appointment [facility] One Day Services [address] [place] [address] Josué Cook MD [address] [place] [address] 8 [place] [address] documented as of this encounter Visit Diagnoses Not on filedocumented in this encounter Care Teams Contracts Administrator Relationship Specialty Start Date End Date Jared Abrams MD PCP - General 08/28/11 07/16/22 documented as of this encounter
--- OUTSIDE RECORDS SUMMARY | 2024-07-15 17:23 | XMS_ITS | Encounter Summary ---
Author Organization [facility] Address [address] [facility] [place] [address] [place] [address] Care Team Providers Care Circular Saw Operator Name Role Phone Jared Abrams MD Primary Care Provider [phone] Encounter Details Date Type Department Care Team (Late Contact Info) Description 09/26/2003 Abstract [facility] CONVERSION [address] [place] [address] , Generic ConversionMD Social History Tobacco Use [...] (Late Contact Info) Description 08/03/2024 2:00 PM TOOL AND DIE MAKER/DESIGNER Appointment [facility] Services [address] [place] [address] Josué Cook MD [address] [address] documented as of this encounter Visit Diagnoses Not on filedocumented in this encounter Care Teams Circular Saw Operator Relationship Specialty Start Date End Date Jared Abrams MD PCP - General 08/28/11 07/16/22 documented as of this encounter
--- OUTSIDE RECORDS SUMMARY | 2024-07-15 17:23 | XMS_ITS | Encounter Summary ---
Author Organization [facility] Address [address] [place] [address] [place] [address] Care Team Providers Care Sports Nutritionist Name Role Phone Jared Abrams MD Primary Care Provider [phone] Encounter Details Date Type Department Care Team (Late Contact Info) Description 05/20/1997 Abstract [facility] CONVERSION [address] [place] [address] , Generic MD Yvonne Social History Tobacco Use Types Packs/Day Years [...] (Late Contact Info) Description 08/03/2024 2:00 PM PHOTOGRAPHER APPRENTICE Appointment [facility] Services [address] [place] [address] Josué Cook MD [address] [address] documented as of this encounter Visit Diagnoses Not on filedocumented in this encounter Care Teams Sports Nutritionist Relationship Specialty Start Date End Date Jared Abrams MD PCP - General 08/28/11 07/16/22 documented as of this encounter
--- OUTSIDE RECORDS SUMMARY | 2024-07-15 17:23 | XMS_ITS | Encounter Summary ---
Author Organization [facility] Address [address] [facility] [place] [address] [place] [address] Care Team Providers Care Medical Care Evaluation Specialist Name Role Phone Jared Abrams MD Primary Care Provider Encounter Details Date Type Department Care Team (Late Contact Info) Description 07/26/1998 Abstract [facility] CONVERSION 9515 [place] [address] , Generic Conversion, Social History Tobacco Use [...] (Late Contact Info) Description 08/03/2024 2:00 PM TRAVEL COTA Appointment [facility] [address] [place] [address] Josué Cook MD [address] [address] documented as of this encounter Visit Diagnoses Not on filedocumented in this encounter Care Teams Medical Care Evaluation Specialist Relationship Specialty Start Date End Date Jared Abrams MD PCP - General 08/28/11 07/16/22 documented as of this encounter
--- OUTSIDE RECORDS SUMMARY | 2024-07-15 17:23 | XMS_ITS | Encounter Summary ---
Author Organization [facility] Address [address] [facility] [place] [address] [place] [address] Care Team Providers Care Radio Tower Technician Name Role Phone Jared Abrams MD Primary Care Provider Encounter Details Date Type Department Care Team (Late Contact Info) Description 05/08/2004 Abstract [facility] CONVERSION [address] [place] [address] Scar Diaz MD [address] [place] [address] [phone] Social History Tobacco Use Types Packs/Day Years [...] (Late Contact Info) Description 08/03/2024 2:00 PM PROCESS DESCRIPTION WRITER Appointment [facility] One Day Services [address] [place] [address] Josué Cook MD [address] [place] [address] 8 [place] [address] documented as of this encounter Visit Diagnoses Not on filedocumented in this encounter Care Teams Radio Tower Technician Relationship Specialty Start Date End Date Jared Abrams MD PCP - General 08/28/11 07/16/22 documented as of this encounter
--- OUTSIDE RECORDS SUMMARY | 2024-07-15 17:23 | XMS_ITS | Encounter Summary ---
Author Organization [facility] Address [address] [place] [address] [place] [address] Care Team Providers Care Reservoir Engineer Name Role Phone Jared Abrams MD Primary Care Provider [phone] Encounter Details Date Type Department Care Team (Late Contact Info) Description 04/19/2004 Abstract [facility] CONVERSION 9515 [place] [address] Scar Diaz MD [address] [place] [phone] Social History Tobacco Use Types Packs/Day Years [...] (Late Contact Info) Description 08/03/2024 2:00 PM TRAFFIC CONTROL SPECIALIST Appointment [facility] Day [facility] [address] [place], [place] [phone] Josué Cook MD [address] [facility] 8 [place] [address] documented as of this encounter Visit Diagnoses Not on filedocumented in this encounter Care Teams Reservoir Engineer Relationship Specialty Start Date End Date Jared Abrams MD PCP - General 08/28/11 07/16/22 documented as of this encounter
--- OUTSIDE RECORDS SUMMARY | 2024-07-15 17:23 | XMS_ITS | Encounter Summary ---
Author Organization [facility] Address [address] [facility] [place] [address] [place] [address] Care Team Providers Care Technical Professional Name Role Phone Jared Abrams MD Primary Care Provider [phone] Encounter Details Date Type Department Care Team (Late Contact Info) Description 10/27/2003 Abstract [facility] CONVERSION [address]15 [place] [address] , Generic Conversion, Social History Tobacco Use [...] (Late Contact Info) Description 08/03/2024 2:00 PM CLINICAL NUTRITIONIST Appointment [facility] [address] [place] [address] Josué Cook MD [address] [address] documented as of this encounter Visit Diagnoses Not on filedocumented in this encounter Care Teams Technical Professional Relationship Specialty Start Date End Date Jared Abrams MD PCP - General 08/28/11 07/16/22 documented as of this encounter
--- OUTSIDE RECORDS SUMMARY | 2024-07-15 17:23 | XMS_ITS | Encounter Summary ---
Author Organization [facility] Address [address] [facility] [place] [address] [place] [address] Care Team Providers Care Fha Underwriter Name Role Phone Jared Abrams MD Primary Care Provider Encounter Details Date Type Department Care Team (Late Contact Info) Description 10/07/2003 Abstract [facility] CONVERSION [address] [place] [address] , Generic ConversionMD Social History Tobacco Use [...] (Late Contact Info) Description 08/03/2024 2:00 PM APPLICATION ASSISTANT Appointment [facility] Services [address] [place] [address] Josué Cook MD [address] [address] documented as of this encounter Visit Diagnoses Not on filedocumented in this encounter Care Teams Fha Underwriter Relationship Specialty Start Date End Date Jared Abrams MD PCP - General 08/28/11 07/16/22 documented as of this encounter
--- OUTSIDE RECORDS SUMMARY | 2024-07-15 17:23 | XMS_ITS | Encounter Summary ---
Author Organization [facility] Address [address] [facility] [place] [address] [place] [address] Care Team Providers Care Database Management Specialist Name Role Phone Jared Abrams MD Primary Care Provider [phone] Encounter Details Date Type Department Care Team (Late Contact Info) Description 10/28/2003 Abstract [facility] CONVERSION [address] [place] [address] Jared Abrams MD 1212 [place] [address] Social History Tobacco Use Types Packs/Day Years [...] (Late Contact Info) Description 08/03/2024 2:00 PM POLYMER SPECIALIST Appointment [facility] One Day Services [address] [place], [place] [address] Josué Cook MD [address] [place] [address] documented as of this encounter Visit Diagnoses Not on filedocumented in this encounter Care Teams Database Management Specialist Relationship Specialty Start Date End Date Jared Abrams MD PCP - General 08/28/11 07/16/22 documented as of this encounter
--- OUTSIDE RECORDS SUMMARY | 2024-07-15 17:23 | XMS_ITS | Encounter Summary ---
Author Organization [facility] Address [address] [facility] [place] [address] [place] [address] Care Team Providers Care Supervisor Bottle Machines Name Role Phone Jared Abrams MD Primary Care Provider Encounter Details Date Type Department Care Team (Late Contact Info) Description 12/19/2003 Abstract [facility] CONVERSION [address] [place] [address] Jared Abrams MD 1212 [place] [address] Social History Tobacco Use Types Packs/Day Years [...] (Late Contact Info) Description 08/03/2024 2:00 PM PULP TESTER Appointment [facility] One Day Services [address] [place] [phone] Josué Cook MD [address] [place] [address] documented as of this encounter Visit Diagnoses Not on filedocumented in this encounter Care Teams Supervisor Bottle Machines Relationship Specialty Start Date End Date Jared Abrams MD PCP - General 08/28/11 07/16/22 documented as of this encounter
--- OUTSIDE RECORDS SUMMARY | 2024-07-15 17:23 | XMS_ITS | Encounter Summary ---
Author Organization [facility] Address [address] [facility] [place] [address] [place] [address] Care Team Providers Care Business Travel Consultant Name Role Phone Jared Abrams MD Primary Care Provider [phone] Encounter Details Date Type Department Care Team (Late Contact Info) Description 11/17/2003 Abstract [facility] CONVERSION [address] [place] [address] Scar Diaz MD [address] [place] [address] Social History Tobacco Use Types Packs/Day Years [...] (Late Contact Info) Description 08/03/2024 2:00 PM DRAY TRUCK DRIVER [facility]ointment [facility] Day [facility] [address] [place], [place] [address] Josué Cook MD [address] [facility] 8 [place] [address] documented as of this encounter Visit Diagnoses Not on filedocumented in this encounter Care Teams Business Travel Consultant Relationship Specialty Start Date End Date Jared Abrams MD PCP - General 08/28/11 07/16/22 documented as of this encounter
--- OUTSIDE RECORDS SUMMARY | 2024-07-15 17:23 | XMS_ITS | Encounter Summary ---
Author Organization [facility] Address [address] [facility] [address] [place] [address] Care Team Providers Care Shearing Machine Feeder Name Role Phone Jared Abrams MD Primary Care Provider [phone] Encounter Details Date Type Department Care Team (Late st Contact Info) Description 11/17/2003 Abstract [facility] Conversion , Generic ConversionMD [...] st Contact Info) Description 08/03/2024 2:00 PM INDUSTRIAL ENERGY ENGINEER Appointment [facility] One Day [facility] [address] [place] [address] Josué Cook MD [address] [address] documented as of this encounter Visit Diagnoses Not on filedocumented in this encounter Care Teams Shearing Machine Feeder Relationship Specialty Start Date End Date Jared Abrams MD PCP - General 08/28/11 07/16/22 documented as of this encounter
--- OUTSIDE RECORDS SUMMARY | 2024-07-15 17:23 | XMS_ITS | Encounter Summary ---
Author Organization [facility] Address [address] [facility] [place] [address] [place] [address] Care Team Providers Care Patient Liaison Name Role Phone Jared Abrams MD Primary Care Provider [phone] Encounter Details Date Type Department Care Team (Late Contact Info) Description 12/15/2003 Abstract [facility] CONVERSION 9515 [place] [address] Scar Diaz MD [address] [place] [address] Social History Tobacco Use Types Packs/Day Years [...] (Late Contact Info) Description 08/03/2024 2:00 PM CARDIOVASCULAR RADIOLOGIC TECHNOLOGIST Appointment [facility] Day [facility] [address] [place], [place] [phone] Josué Cook MD 49[address] [facility] 8 [place] [address] documented as of this encounter Visit Diagnoses Not on filedocumented in this encounter Care Teams Patient Liaison Relationship Specialty Start Date End Date Jared Abrams MD PCP - General 08/28/11 07/16/22 documented as of this encounter
--- OUTSIDE RECORDS SUMMARY | 2024-07-15 17:23 | XMS_ITS | Encounter Summary ---
Author Organization [facility] Address [address] [facility] [address] [place] [address] Care Team Providers Care Deck Officer Name Role Phone Jared Abrams MD Primary Care Provider [phone] Encounter Details Date Type Department Care Team (Late st Contact Info) Description 09/22/2003 Abstract [facility] Conversion , Generic ConversionMD Social History [...] st Contact Info) Description 08/03/2024 2:00 PM OPERATIONS LIAISON Appointment [facility] One Day [facility] [address] [place] [address] Josué Cook MD [address] [address] documented as of this encounter Visit Diagnoses Not on filedocumented in this encounter Care Teams Deck Officer Relationship Specialty Start Date End Date Jared Abrams MD PCP - General 08/28/11 07/16/22 documented as of this encounter
--- OUTSIDE RECORDS SUMMARY | 2024-07-15 17:23 | XMS_ITS | Encounter Summary ---
Author Organization [facility] Address [address] [facility] [place] [place] [address] [place] [address] Care Team Providers Care Web Software Engineer Name Role Phone Jared Abrams MD Primary Care Provider [phone] Encounter Details Date Type Department Care Team (Late Contact Info) Description 01/12/2004 Abstract [facility] CONVERSION [address] [place] [address] Scar Diaz MD [address] [place] [address] Social History Tobacco Use Types Packs/Day Years [...] (Late Contact Info) Description 08/03/2024 2:00 PM HYDRAULIC PRESS IN OPERATOR Appointment [facility] Day [facility] [address] [place], [place] [phone] Josué Cook MD [address] [facility] 8 [place] [address] documented as of this encounter Visit Diagnoses Not on filedocumented in this encounter Care Teams Web Software Engineer Relationship Specialty Start Date End Date Jared Abrams MD PCP - General 08/28/11 07/16/22 documented as of this encounter
--- OUTSIDE RECORDS SUMMARY | 2024-07-15 17:23 | XMS_ITS | Encounter Summary ---
Author Organization [facility] Address [address] [facility] [place] [address] [place] [address] Care Team Providers Care Chute Puller Name Role Phone Jared Abrams MD Primary Care Provider Encounter Details Date Type Department Care Team (Late Contact Info) Description 08/20/2001 Abstract [facility] CONVERSION [address] [place] [address] , Generic ConversionMD Social History Tobacco Use [...] Contact Info) Description 08/03/2024 2:00 PM DIRECTOR OF ACCOUNTS RECEIVABLE Appointment [facility] Services [address] [place] [address] Josué Cook MD [address] [address] documented as of this encounter Visit Diagnoses Not on filedocumented in this encounter Care Teams Chute Puller Relationship Specialty Start Date End Date Jared Abrams MD PCP - General 08/28/11 07/16/22 documented as of this encounter
--- OUTSIDE RECORDS SUMMARY | 2024-07-15 17:23 | XMS_ITS | Encounter Summary ---
Author Organization [facility] Address [address] [facility] [place] [address] [place] [address] Care Team Providers Care Senior Service Technician Name Role Phone Jared Abrams MD Primary Care Provider [phone] Encounter Details Date Type Department Care Team (Late st Contact Info) Description 09/22/2003 Abstract [facility] Bill Durham MD [address] [address] Social History Tobacco Use Types [...] FX W/INTR FIX FEMUR Consultants: DR TREVIZO STIAN SCIENCE PRACTITIONER documented in this encounter Plan of Treatment Upcoming Encounters Date Type Department Care Team (Late st Contact Info) Description 08/03/2024 2:00 PM CHRISTIAN SCIENCE PRACTITIONER Appointment [facility] Day Services [address] [place] [address] Josué Cook MD [address] [address] documented as of this encounter Visit Diagnoses Not on filedocumented in this encounter Care Teams Senior Service Technician Relationship Specialty Start Date End Date Jared Abrams MD PCP - General 08/28/11 07/16/22 documented as of this encounter
--- OUTSIDE RECORDS SUMMARY | 2024-07-15 17:34 | XMS_ITS | Continuity of Care Document ---
Author Organization [facility] Address [address] [facility] [address] [place] [address] Phone Care Team Providers Care Lingo Cleaner Name Role Phone Saul Ribera PT Unavailable [...] Activities Neuromuscular Re-Ed Therapeutic Exercise Therapeutic Activities Therapeutic Exercise Neuromuscular Re-Ed Therapeutic Activities Neuromuscular Re-Ed Therapeutic Activities Neuromuscular Re-Ed Therapeutic Exercise Doc neg elder mal no plan PT Evaluation Moderate Complexity Neuromuscular Re-Ed Therapeutic Exercise Manual Therapy Advance Directives Directive Yes / No Effective Date File Name No Information Encounters Encounter Description Practice Location Reason(s) For Visit Diagnoses Date Provider Providers Copied on Encounter [facility], [id number], tel:[phone] [place] No Information 3 Bacilio Saul. . [facility], [id number], tel:[phone] [facility] No Information 3 Bacilio Saul. . Referring Provider: Servando Bernstein, [facility] [place], [address]. tel:[phone] [facility] [address], [id number], tel:[phone] [facility] No Information 3 Bacilio Saul. . Referring Provider: Servando Bernstein, [facility] [place], [address]. tel:[phone] [facility] [address], [id number], tel:[phone] [facility] Urge incontinence 3 Bacilio Saul. . Referring Provider: Servando Bernstein, [facility] [place], [address]. tel:[phone] [facility], [address] [facility], [place], [place], [address], [place] tel:[phone] [facility] No Information [place] 3 Bacilio Saul. . Referring Provider: Servando Bernstein, [address] [place], [address]. tel:[phone] [facility] [address] [facility], [place], [place], [address], [place] tel:[phone] [facility] No Information [place] - 3 Bacilio Saul. . Referring Provider: Servando Bernstein, [address] [place], [address]. tel:[phone] [facility] [address] [address], [place], [place], [address], tel:[phone] [facility] No Information [place] 6 3 Bacilio Saul. . Referring Provider: Servando Bernstein, [address] [place], [address]. tel:[phone] [facility] [address] [address], [place], [place], [id number], tel:[phone] [facility] No Information [place] 3 Bacilio Saul. . Referring Provider: Servando Bernstein, [address] [place], [address]. tel:[phone] [facility] [address] [facility], [place], [place], [id number], [place] tel:[phone] [facility] No Information [place] - 3 Bacilio Saul. . Referring Provider: Servando Bernstein, [address] [place], [address]. tel:[phone] [facility], [address] [facility], [place], [place], [address], [place] tel:[phone] [facility] No Information November- 3 Bacilio Saul. . Referring Provider: Servando Bernstein, [address] [facility], [place], [address]. tel:[phone] [facility], [address] [address], [place], [place], [address], tel:[phone] [facility] No Information November- 3 Bacilio Saul. . Referring Provider: Servando Bernstein, [address] [facility], [place], [address]. tel:[phone] [facility], [address] [address], [place], [place], [id number], tel:[phone] [facility] No Information November- 3 Bacilio Saul. . Referring Provider: Servando Bernstein, [address] [place], [address]. tel:[phone] [facility], [address] [address], [place], [place], [address], tel:[phone] [facility] No Information 3 Bacilio Saul. . Referring Provider: Servando Bernstein, [address] [place], [address]. tel:[phone], [id number], tel:[phone] [facility] No Information November- 3 Bacilio Saul. . Referring Provider: Servando Bernstein, [address] [place], [address]. tel:[phone] [facility], [address] [address], [place], [place], [address], tel:[phone] [facility] No Information 3 Bacilio Saul. . Referring Provider: Servando Bernstein, [address] [place], [address]. tel:[phone] [facility] [address], [place], [place], [address], [place] tel:[phone] [facility] No Information May-0 9-202 3 Bacilio Saul. . Referring Provider: Servando Bernstein, [address] [place], [address]. tel:[phone] [facility] [address] [address], [place], [place], [address], [place] tel:[phone] [facility] No Information May-0 3-202 3 Bacilio Saul. . Referring Provider: Servando Bernstein, [address] [place], [address]. tel:[phone] [facility], [address] [address], [place], [place], [address], tel:[phone] [facility] No Information May-0 2-202 3 Bacilio Saul. . Referring Provider: Servando Bernstein, [address] [place], [address]. tel:[phone] [facility], [id number], tel:[phone] [facility] No Information Apr-2 7-202 3 Bacilio Saul. . Referring Provider: Servando Bernstein, [address] [place], [address]. tel:[phone] [facility], [id number], [place] tel:[phone] [facility] Unspecified urinary incontinenceUrge incontinence Apr-2 5-202 3 Bacilio Saul. . Referring Provider: Servando Bernstein, [address] [place], [address]. tel:[phone] [facility], [address] [address], [place], [place], [address], [place] tel:[phone] [facility] No Information Apr-2 0-202 3 Bacilio Saul. . Referring Provider: Servando Bernstein, [address] [facility], [place], [address]. tel:[phone] [facility], [address] [address], [place], [place], [address], tel:[phone] [facility] No Information Apr-1 8-202 3 Bacilio Saul. . Referring Provider: Servando Bernstein, [address] [facility], [place], [address]. tel:[phone] [facility], [address] [address], [place], [place], [address], [place] tel:[phone] [facility] No Information Apr-1 4-202 3 Bacilio Saul. . Referring Provider: Servando Bernstein, [address] [place], [address]. tel:[phone] [facility], [address] [address], [place], [place], [address], [place] tel:[phone] [facility] No Information Apr-1 3-202 3 Bacilio Saul. . Referring Provider: Servando Bernstein, [address] [place], [address]. tel:[phone] [facility], [address], [id number], [place] tel:[phone] [facility] No Information Apr-0 6-202 3 Bacilio Saul. . Referring Provider: Servando Bernstein, [address] [place], [address]. tel:[phone] [facility] [address], [place], [address], [place] tel:[phone] [facility] No Information Apr-0 4-202 3 Bacilio Saul. . Referring Provider: Servando Bernstein, [address] [place], [address]. tel:[phone] [place] [address], [address] [address], [place], [place], [address], [place] tel:[phone] [facility] No Information Mar-3 1-202 3 Bacilio Saul. . Referring Provider: Servando Bernstein, [address] [place], [address]. tel:[phone] [facility] [address], [place], [address], [place] tel:[phone] [facility] No Information Mar-3 0-202 3 Bacilio Saul. . Referring Provider: Servando Bernstein, [address] [place], [address]. tel:[phone] [facility] [address], [place], [place], [address], tel:[phone] [facility] No Information Mar-2 3-202 3 Bacilio Saul. . Referring Provider: Servando Bernstein, [address] [place], [address]. tel:[phone] [facility], [id number], [place] tel:[phone] [facility] No Information Mar-2 1-202 3 Bacilio Saul. . Referring Provider: Servando Bernstein, [address] [place], [address]. tel:[phone] [facility] [address], [place], [address], [place] tel:[phone] [facility] No Information Mar-1 5- 3 Bacilio Saul. . Referring Provider: Servando Bernstein, [address] [place], [address]. tel:[phone] [facility] [address], [place], [address], [place] tel:[phone] [facility] Unspecified urinary incontinenceUnsp ecified urinary incontinence Mar-1 3-202 3 Bacilio Saul. . Referring Provider: Servando Bernstein, [address] [facility], [place], [address]. tel:[phone] [facility], [address] [address], [place], [place], [address], tel:[phone] [place] No Information Sep- 3 Bacilio Saul. . Referring Provider: Servando Bernstein, [address] [facility], [place], [address]. tel:[phone] [facility], [address] [address], [place], [address], [place] tel:[phone] [place] No Information 3 Bacilio Saul. . Referring Provider: Servando Bernstein, [address] [facility], [place], [address]. tel:[phone] [facility], [address] [address], [place], [address], [place] tel:[phone] [place] No Information 3 Bacilio Saul. . Referring Provider: Servando Bernstein, [address] [place], [address]. tel:[phone] [address], [place], [place], [address], [place] tel:[phone] [facility] No Information 3 Bacilio Saul. . Referring Provider: Servando Bernstein, [address] [facility], [place], [address]. tel:[phone] [facility], [address] [address], [place], [address], [place] tel:[phone] [facility] No Information 3 Fatimah Jimenez. . Referring Provider: Servando Bernstein, [address] [place], [address]. tel:[phone] [facility], [address] [address], [place], [place], [address], [place] tel:[phone] [place] No Information 3 Bacilio Saul. . Referring Provider: Servando Bernstein, [facility] [place], [address]. tel:[phone] [facility], [address] [address], [place], [address], [place] tel:[phone] [place] No Information 3 Bacilio Saul. . Referring Provider: Servando Bernstein, [address] [place], [address]. tel:[phone] [facility] [address], [place], [address], tel:[phone] [place] No Information 3 Bacilio Saul. . Referring Provider: Servando Bernstein, [address] [place], [address]. tel:[phone] [facility], [id number], [place] tel:[phone] [place] No Information 3 Bacilio Saul. . Referring Provider: Servando Bernstein, [facility] [place], [address]. tel:[phone] [facility], [id number], [place] tel:[phone] [place] No Information 3 Bacilio Saul. . Referring Provider: Servando Bernstein, [facility] [place], [address]. tel:[phone] [facility] [address], [place], [place], [address], tel:[phone] [facility] No Information 3 Bacilio Saul. . Referring Provider: Servando Bernstein, [address] [facility], [place], [address]. tel:[phone] [facility] [address] [address], [place], [place], [address], tel:[phone] [place] No Information 3 Bacilio Saul. . Referring Provider: Servando Bernstein, [address] [facility], [place], [address]. tel:[phone] [facility], [address] [facility], [place], [place], [address], [place] tel:[phone] [place] No Information 3 Bacilio Saul. . Referring Provider: Servando Bernstein, [address] [facility], [place], [address]. tel:[phone] [facility], [address] [address], [place], [place], [address], tel:[phone] [facility] No Information 3 Bacilio Saul. . Referring Provider: Servando Bernstein, [address] [facility], [place], [address]. tel:[phone] [facility], [address] [place] [address], [place], [address], tel:[phone] [facility] No Information 3 [place], [place]. Referring Provider: Servando Bernstein, [address] [facility], [place], [address]. tel:[phone] [facility], [address] [facility], [place], [place], [address], [place] tel:[phone] [place] No Information 2 Bacilio Saul. . Referring Provider: Servando Bernstein, [address] [facility], [place], [address]. tel:[phone] [facility] [facility], [place], [place], [address], tel:[phone] [facility] No Information 2 Bacilio Mcdonald . Referring Provider: Servando Bernstein, [facility], [place], [address]. tel:[phone] [facility], [address], [place], [place], [address], [place] tel:[phone] [place] Urge incontinence 2 Titus Nicolasla. [address] [facility], [address], [place], [address], [place]. tel: [phone] Referring Provider: Servando Bernstein, [address] [facility], [place], [address]. tel:[phone] Family History Family Member Type Diagnosis Age At Onset No Information Payers Payer name Insurance type Covered alliance party ID Authoriza tion(s) Medicare [place] [id number] [facility] [id number] Social History Type Description Quantity Date Captured [...]
--- OUTSIDE RECORDS SUMMARY | 2024-07-15 17:34 | XMS_ITS | Encounter Summary ---
Author Organization [facility] Healthcare Address [address] [place] [address] Care Team Providers Care Event Services Manager Name Role Phone Servando Torre MD Primary Care Provider [phone] Mariela Denton MD Unavailable [phone] -[phone] Lexis Barroso OD Unavailable +1- [phone] Encounter Details Date Type Department Care Team (Latest Contact Info) Description 07/02/2024 10:20 AM DRUG DISCOVERY INFORMATICS SPECIALIST - 07/02/2024 11:59 PM [facility] Hospital Encounter 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 1 each 5 04/29/2023 acetaminophen (acetaminophen Extra Strength) 500 mg tablet Take 1 tablet (500 mg total) by mouth every 6 (six) hours as needed 09/30/2022 4 mirtazapine (REMERON) 7.5 mg tablet Take 1 tablet (7.5 mg total) by mouth nightly 30 tablet 5 05/28/2024 4 pravastatin (PRAVACHOL) 40 mg tabletIndications:Mi xed diabetic hyperlipidemia associated with type 2 diabetes mellitus (HCC) Take 1 tablet (40 mg total) by mouth nightly 01/01/2024 4 busPIRone (BUSPAR) 5 mg tablet 05/28/2024 4 cephalexin (KEFLEX) 500 mg capsule 06/10/2024 4 documented as of this encounter Discharge Disposition Disposition Code Departure Means Destination Discharge to home or self care documented in this encounter Plan of Treatment Not on file documented as of this encounter Procedures Procedure Name Priority Date/Time Associated Diagnosis Comments EGFR Routine 07/02/2024 10:20 AM DRUG DISCOVERY INFORMATICS SPECIALIST Weakness generalized DIFFERENTIAL AUTO Routine 07/02/2024 10: 20 AM DRUG DISCOVERY INFORMATICS SPECIALIST Weakness generalized URINALYSIS AND REFLEX TO MICROSCOPIC AND CULTURE Routine 07/02/2024 10:20 AM DRUG DISCOVERY INFORMATICS SPECIALIST Weakness generalized CBC WITH AUTO DIFFERENTIAL Routine 07/02/2024 10:20 AM DRUG DISCOVERY INFORMATICS SPECIALIST Weakness generalized ALBUMIN CREATININE RATIO, URINE Routine 07/02/2024 10:20 AM DRUG DISCOVERY INFORMATICS SPECIALIST Hypertension associated with diabetes (HCC) LAMOTRIGINE LEVEL Routine 07/02/2024 10: 20 AM DRUG DISCOVERY INFORMATICS SPECIALIST Seizure (HCC) URINALYSIS, MICROSCOPIC ONLY Routine 07/02/2024 10:20 AM DRUG DISCOVERY INFORMATICS SPECIALIST Weakness generalized HEMOGLOBIN A1C Routine 07/02/2024 10:20 AM DRUG DISCOVERY INFORMATICS SPECIALIST Hypertension associated with diabetes (HCC) LIPID PANEL Routine 07/02/2024 10:20 AM DRUG DISCOVERY INFORMATICS SPECIALIST Hypertension associated with diabetes (HCC) COMPREHENSIVE METABOLIC PANEL Routine 07/02/2024 10:20 AM DRUG DISCOVERY INFORMATICS SPECIALIST Weakness generalized documented in this encounter Results * (ABNORMAL) Urinalysis, microscopic only (07/02/2024 10:20 AM DRUG DISCOVERY INFORMATICS SPECIALIST) WBC, ur 6-10(A) 0 - 5 /HPF RBC, ur 3-5(A) 0 - 2 /HPF [facility] Epithelial cells, squamous, ur 1-5 0 - 5 /HPF [facility] Mucous, ur Present(A) [facility] Culture Reflex Comment Reflex conditions for urine culture (WBC >10) not met. [facility] Urine, clean voided 07/02/2024 10:20 AM DRUG DISCOVERY INFORMATICS SPECIALIST 07/02/2024 5:00 PM DRUG DISCOVERY INFORMATICS SPECIALIST us Kimberly Nicolas MD LAB URINE ORDERABLES Final Resu lt [facility] [address] [place] [address] * eGFR (07/02/2024 10:20 AM DRUG DISCOVERY INFORMATICS SPECIALIST) eGFR 66 >=60 mL/min/1. 73 m2 Comment: [...] reviewed 2021. Blood 07/02/2024 10:2 0 AM DRUG DISCOVERY INFORMATICS SPECIALIST 07/02/2024 5:35 PM DRUG DISCOVERY INFORMATICS SPECIALIST us Kimberly Nicolas MD LAB BLOOD ORDERABLES Final Resu lt [facility] [address] [place] [address] * Differential, auto (07/02/2024 10:20 AM DRUG DISCOVERY INFORMATICS SPECIALIST) Neutrophil abs 5.1 1.5 - 6.5 K/cumm Imm gran abs 0.0 0.0 - 0.1 K/cumm [facility] Lymphocyte abs 1.4 0.8 - 3.3 K/cumm [facility] Monocyte abs 0.7 0.2 - 0.8 K/cumm [facility] Eosinophil abs 0.3 0.0 - 0.5 K/cumm [facility] Basophil abs 0.0 0.0 - 0.1 K/cumm [facility] Neutrophil pct 68.0 % [facility] Comment: Interpretive Data Percent cell [...] on 2017. Blood 07/02/2024 10:2 0 AM DRUG DISCOVERY INFORMATICS SPECIALIST 07/02/2024 5:00 PM DRUG DISCOVERY INFORMATICS SPECIALIST us Kimberly Nicolas MD LAB BLOOD ORDERABLES Final Resu lt [facility] [id number] [place] [address] * (ABNORMAL) CBC with auto differential (07/02/2024 10:20 AM DRUG DISCOVERY INFORMATICS SPECIALIST) WBC 7.4 3.8 - 9.9 K/cumm Hgb 13.3 11.9 - 15.5 g/dL [facility] Hct 44.2 35.6 - 45.5 % [facility] Plt 296 150 - 400 K/cumm [facility] MPV 9.4 9.1 - 12.3 fL [facility] RBC 4.79 3.90 - 5.20 M/cumm [facility] MCV 92.3 81.3 - 96.4 fL [facility] MCH 27.8 27.1 - 33.3 pg [facility] MCHC 30.1(L) 32.3 - 35.7 g/dL [facility] RDW CV 13.0 11.1 - 14.9 % [facility] RDW SD 43.8 35.7 - 48.1 fL [facility] NRBC abs 0.00 0.00 - 0.01 K/cumm [facility] Blood 07/02/2024 10:2 0 AM DRUG DISCOVERY INFORMATICS SPECIALIST 07/02/2024 5:00 PM DRUG DISCOVERY INFORMATICS SPECIALIST us Kimberly Nicolas MD LAB BLOOD ORDERABLES Final Resu lt [facility] [address] [place] [address] * (ABNORMAL) Comprehensive metabolic panel (07/02/2024 10:20 AM DRUG DISCOVERY INFORMATICS SPECIALIST) Sodium 141 135 - 145 mmol/L Potassium, pl 4.1 3.3 - 4.9 mmol/L [facility] Chloride 103 97 - 110 mmol/L [facility] CO2 27 22 - 32 mmol/L [facility] Anion gap 11 2 - 15 mmol/L [facility] BUN 16 6 - 25 mg/dL [facility] Creatinine 0.88 0.60 - 1.10 mg/dL [facility] Glucose 128 70 - 199 mg/dL [facility] Comment: Interpretive Data Fasting glucose >/= [...] [facility] Blood 07/02/2024 10:2 0 AM DRUG DISCOVERY INFORMATICS SPECIALIST 07/02/2024 5:00 PM DRUG DISCOVERY INFORMATICS SPECIALIST us Kimberly Nicolas MD LAB BLOOD ORDERABLES Final Resu lt [facility] [address] [place] [address] * (ABNORMAL) Urinalysis reflex to microscopic and culture Urine, clean voided (07/02/2024 10:20 AM DRUG DISCOVERY INFORMATICS SPECIALIST) Color, ur Yellow Yellow Clarity, ur Clear [...] tendency for uric acid stone formation. Source: [facility] Current Interpretive Data was last revised on [...] CH Urine, clean voided 07/02/2024 10:20 AM DRUG DISCOVERY INFORMATICS SPECIALIST 07/02/2024 5:00 PM DRUG DISCOVERY INFORMATICS SPECIALIST Kimberly Nicolas MD LAB MICROBIOLOGY - GENERAL ORDDidi LEARY Final Result Performing Organization Address [facility] [address]/[facility] Co de Phone Number [facility] [address] [facility] [place] [address] * (ABNORMAL) Albumin Creatinine Ratio, Urine (07/02/2024 10:20 AM DRUG DISCOVERY INFORMATICS SPECIALIST) Albumin Ur 45.5 mg/L Comment: Interpretive Data No reference range established. Current interpretive data was last revised 2018. Creatinine Ur 73.7 mg/dL [facility] Comment: Interpretive Data No reference range established. Current interpretive data was last revised 2018. Albumin Creatinine Ratio, Ur 62(H) 1 - 29 mg/g [facility] Urine 07/02/2024 10:2 0 AM DRUG DISCOVERY INFORMATICS SPECIALIST 07/02/2024 5:00 PM DRUG DISCOVERY INFORMATICS SPECIALIST Servando Torre MD LAB URINE ORDERABLES Final Result Performing Organization Address [facility] Phone Number [facility] [address] [facility] [place] [address] * (ABNORMAL) Hemoglobin A1c (07/02/2024 10:20 AM DRUG DISCOVERY INFORMATICS SPECIALIST) Hgb A1C 6.4(H) 4.0 - 5.6 % Estimated Average Glucose 137 mg/dL [facility] Comment: The ADA recommends reporting an estimated Average Glucose (eAG) with all Hemoglobin A1c results using the equation derived from a study of 507 normal and diabetic adults. ??Minority populations were underrepresented and children were not included. ?? (Diabetes Care 31:2156-9926, 2008). ??The eAG is not equivalent to a fasting glucose. Blood 07/02/2024 10:2 0 AM DRUG DISCOVERY INFORMATICS SPECIALIST 07/02/2024 5:00 PM DRUG DISCOVERY INFORMATICS SPECIALIST Servando Torre MD LAB BLOOD ORDERABLES Final Result Performing Organization Address [facility] [address]/[facility] Co de Phone Number [facility] [address] [facility] [place] [address] * Lamotrigine level (07/02/2024 10:20 AM DRUG DISCOVERY INFORMATICS SPECIALIST) Pathologist [facility] Lamotrigine 9.6 3.0 - 15.0 mcg/mL [facility] Comment: ADDITIONAL INFORMATION This test was developed and its performance characteristics determined by [facility] in a manner consistent with CLIA requirements. This test has not been cleared or approved by the U.S. Food and Drug Administration. Test Performed by: [facility] [address] [place] [address] Bridge Builder: Liu Davis Ph.D.; CLIA# [id number] Blood 07/02/2024 10:2 0 AM DRUG DISCOVERY INFORMATICS SPECIALIST 07/02/2024 5:00 PM DRUG DISCOVERY INFORMATICS SPECIALIST us Servando Torre MD LAB BLOOD ORDERABLES Final Result [facility] [address] [place] [address] [facility] * (ABNORMAL) Lipid panel (07/02/2024 10:20 AM DRUG DISCOVERY INFORMATICS SPECIALIST) Pathologist [facility] Cholesterol 190 30 - 199 mg/dL Comment: [...] [facility] MATTHEW Blood 07/02/2024 10:2 0 AM DRUG DISCOVERY INFORMATICS SPECIALIST 07/02/2024 5:00 PM DRUG DISCOVERY INFORMATICS SPECIALIST us Servando Torre MD LAB BLOOD ORDERABLES Final Result Performing Organization Address City/State/[facility] Co wa Phone Number [facility]THE[facility] [address] [place] [address] documented in this encounter Visit Diagnoses Diagnosis Hypertension associated with diabetes (HCC) Unspecified essential hypertension Seizure (HCC) Other convulsions Weakness generalized Other malaise and fatigue documented in this encounter Care Teams Event Services Manager Relationship Specialty Start Date End Date Servando Torre MD [address] [facility] [address] [place] [address] PCP - General Family Medicine 06/19/22 Mariela Denton MD [address] [place] [address] Referring Physician Gastroenterology 06/19/22 Lexis Barroso OD [address] [place] [id number] Biomedical Repair Technician 09/19/22 documented as of this encounter
--- OUTSIDE RECORDS SUMMARY | 2024-07-15 17:34 | XMS_ITS | Encounter Summary ---
Author Organization [facility] Address [address] [place] [address] Phone Care Team Providers Care Behavioral Science Chair Name Role Phone Servando Torre MD Primary Care Provider [phone] Mariela Denton MD Unavailable + -[phone] Lexis Barroso OD Unavailable [phone]- [phone] Reason for Visit * Reason Comments Dementia Encounter Details Date Type Department Care Team (Late st Contact Info) Description 07/08/2024 3:15 PM FLAT SURFACER Office Visit [facility] [address] [facility] [address] [place] [address] Chelsie Francisco NP [address] [place] [address] Somnolence, daytime (Primary Dx); Memory impairment; Frequent [...] on file Legal Sex Female 9:30 AM FLAT SURFACER Gender Identity Female 04/05/2022 6:17 PM CDT Sexual Orientation Straight 04/05/2022 6: 17 PM CDT documented as of this encounter Last Filed Vital Signs Vital Sign Reading Time Taken Comments Blood Pressure 129/77 07/08/2024 3:11 PM FLAT SURFACER Pulse 72 07/08/2024 3:11 PM FLAT SURFACER Temperature 36.8 ??C (98.2 ??F) 07/08/2024 3:11 PM CS T Respiratory Rate - - Oxygen Saturation 98% 07/08/2024 3:11 PM FLAT SURFACER Inhaled Oxygen Concentration - - Weight 65.8 kg (145 lb) 07/08/2024 3:11 PM FLAT SURFACER Height 157.5 cm (5' 2 ) 07/08/2024 3:11 PM FLAT SURFACER Body Mass Index 26.52 07/08/2024 3:11 PM FLAT SURFACER documented in this encounter Patient Instructions * Patient Instructions* Chelsie Francisco NP - 07/08/2024 3:15 PM FLAT SURFACER [facility] After Visit Summary SCOUT [...] Additional Resources and Support: Yahaira Ritchie R.N. Supervisor [employer] [address] [place] [address] Toll Free: [phone] ext [phone] Email: The best way to reach our team is via My Chart, this is a secure way for us to communicate about your health care. Please call The My Chart Support Desk: [phone] for help with My Chart, or [phone] to obtain a link for access. Future [...] let us know your preference when scheduling. SURFACER documented in this encounter Progress Notes * [...] the same week (confused, took to ED), [facility]. Everything checked out fine. CS is worried [...] with high-risk medication Abnormal liver function tests long-term (current) use of oral hypoglycemic drugs Type [...] Drinking: Never Medical Records Review: I reviewed [facility] notes and prior Neuropsychometric testing scores. Lab [...] normal 04/09/2023 7:00 AM 05/19/2024 7:00 AM [facility] Neurobehavioral Status Exam Results Repository ICF signed? No No Verbal Fluency Total Score 10 8 Carbon Naming (15 item) Total Score 15 15 [...] Dementia Ratin04/09/2023 7:00 AM 05/19/2024 7:00 AM [facility] CDR/DIAGNOSIS NEW Repository ICF signed? No No [...] twice in the emergency department following falls ([facility]), brain imaging normal per CS. She had [...] Additional Resources and Support: Yahaira Ritchie R.N. Supervisor [employer] [address] [place] [address] Toll Free: [phone] ext [phone] Email: The best way to reach our team is via My Chart, this is a secure way for us to communicate about your health care. Please call The My Chart Support Desk: [phone] for help with My Chart, or [phone] to obtain a link for access. Future Appointments Date Time Provider Department Center 08/03/2024 8:00 AM [facility] CARD EDW ECHO/VASC CV EDW US MG Decent 08/10/2024 4:30 PM Adria Burleson MD EPI CAM 6C NL 09/23/2024 2:00 PM Teofilo Tang MD [facility] CAR MRVL Specialty 10/06/2024 2:00 PM Servando Torre MD PCP EDW2 PC 11/10/2024 12:30 PM Adria Burleson MD EPI CAM 6C NL 05/04/2025 3:45 PM Josué Cook MD GI CAM 12B [facility] We offer in person and telemedicine (virtual) [...] time spent in any separately reportable services. SURFACER SURFACER documented in this encounter Plan of Treatment [...] documented as of this encounter Care Teams Behavioral Science Chair Relationship Specialty Start Date End Date Servando Torre MD [address] [address] PCP - General Family Medicine 06/19/22 Mariela Denton MD [address] [place] [address] Referring Physician Gastroenterology 06/19/22 Lexis Barroso OD [address] [place] [id number] Electrical Assemblies Supervisor 09/19/22 documented as of this encounter
--- OUTSIDE RECORDS SUMMARY | 2024-07-15 17:34 | XMS_ITS | Clinical Summary ---
Author Organization [facility] Address [address] [place] [address] Care Team Providers Care Development Intern Name Role Phone Servando Torre MD Primary Care Provider Mariela Denton MD Unavailable [phone] Lexis Barroso OD Unavailable [phone]- [phone] Allergies Active Allergy Reactions Criticality Noted Date [...] catheter every 8 (eight) weeks Infused at: [facility] ([facility] order in [facility] under 'Procedures' tab). 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 halfway (current) use of oral hypoglycemic fuentes gs [...] 05/29 Assessment & Plan (07/05/2024 3:20 PM NETWORK CABLE INSTALLER): A(n) yearly Medicare Annual Wellness Visit has [...] months Assessment & Plan (06/26/2023 2:02 PM NETWORK CABLE INSTALLER): A(n) yearly Medicare Annual Wellness Visit has [...] months Assessment & Plan (06/23/2022 3:06 PM NETWORK CABLE INSTALLER): A(n) initial Medicare Annual Wellness Visit has [...] (06/19/2022): Added automatically from request for surgery [id number] Ear ringing 03/03/2013 Asymmetrical sensorineural hearing loss 03/03/20 13 Stress fracture 07/07/2012 Arthralgia of hip 02/06/2011 Resolved Problems Problem Noted Date Diagnosed Date Resolved Date Hospital discharge follow-up 06/11/2023 08/07/2023 Assessment & Plan (06/11/2023 1:42 PM NETWORK CABLE INSTALLER): I have reviewed the hospital record, medications, [...] Encounters Date Type Department Care Team Description 07/14/2024 Telephone [facility] Primary Care at [address] [phone] Results 07/12/2024 Orders Only [address] [place] [address] Chelsie Francisco NP 07/12/2024 Orders Only [facility] Primary Care at [address] [phone] Marcell Rucker MD 07/09/2024 Telephone [facility] [address] [facility] 6th [place] [address] [place] [address] Adria Burleson MD Medication Problem; Request For Order(s) 07/08/2024 3:15 PM NETWORK CABLE INSTALLER Office Visit [address] 6th Floor [address] [place] [phone] Chelsie Francisco NP Somnolence, daytime (Primary Dx); Memory impairment; Frequent falls; Anxiety 07/05/2024 3:00 PM NETWORK CABLE INSTALLER Office Visit [facility] Primary Care at [address] [phone] Servando Torre MD Encounter for Medicare annual wellness exam (Primary Dx); Mixed diabetic hyperlipidemia associated with type 2 diabetes mellitus (HCC); Hypertension associated with diabetes (HCC); Gastroesophageal reflux disease without esophagitis; At risk for falls; Carotid stenosis, asymptomatic, bilateral 07/02/2024 10:20 AM NETWORK CABLE INSTALLER - 07/02/2024 11:59 PM NETWORK CABLE INSTALLER Hospital Encounter [address] [address] Hypertension associated with diabetes ([facility]); Seizure ([facility]); Weakness generalized Discharge Disposition: Discharge to home or self care 07/02/2024 10:15 AM NETWORK CABLE INSTALLER Lab [facility] Outpatient Lab at [address] [phone] Encounter for Medicare annual wellness exam (Primary Dx) 06/29/2024 Orders Only [facility] [address] [facility] 6th Floor [address] [place] [phone] Kimberly Nicolas MD Weakness generalized (Primary Dx) 06/18/2024 3:00 PM NETWORK CABLE INSTALLER Ancillary Procedure [facility] Imaging at [address] [phone] Accidental fall, subsequent encounter 06/18/2024 2:55 PM NETWORK CABLE INSTALLER Ancillary Procedure [facility] Imaging at [address] [phone] Accidental fall, subsequent encounter 06/18/2024 2:30 PM NETWORK CABLE INSTALLER Office Visit [facility] at [address] [phone] Pricilla Olguin NP Accidental fall, subsequent encounter (Primary Dx) 05/28/2024 Telephone [facility] Primary Care at [address] [phone] Servando Torre MD Medical Question/Miscellaneisaak s 05/19/2024 4:30 PM CDT Office Visit [facility] [address] [place] [address] Floor [address] [place] [phone] Kimberly Nicolas MD Vascular dementia without behavioral disturbance (HCC) (Primary Dx) 05/18/2024 Orders Only [facility] Gastroenter[facility] [address] [place] [address] Floor [address] [place] [phone] Ayala Mobley RN Chronic ulcerative colitis, unspecified complication (HCC) (Primary Dx); High risk medications (not anticoagulants) long-term use; Healthcare maintenance; Encounter for screening for other viral diseases 05/15/2024 Telephone [facility] at [address] [phone] Pricilla Olguin NP 05/13/2024 12:25 PM CDT Ancillary Procedure [facility] Imaging at [address] [phone] Fall, initial encounter 05/13/2024 12:00 PM CDT Office Visit [facility] at [address] [phone] Mara Almendarez NP Fall, initial encounter (Primary Dx); Acute pain of right knee 05/12/2024 Nurse Triage [facility] Medical [facility] Primary Care at [address] [phone] Servando Torre MD 05/05/2024 3:45 PM CDT Office Visit [facility] Gastroenterology [address] [place] [address] [address] [place] [phone] Josué Cook MD Chronic ulcerative colitis, unspecified complication (HCC) (Primary Dx) 05/05/2024 9:30 AM CDT Office Visit [facility] Epilepsy [facility] 6th Floor [address] [place] [phone] Adria Burleson MD Localization-related symptomatic epilepsy and epileptic syndromes with complex partial seizures, not intractable, without status epilepticus (HCC) (Primary Dx) 04/27/2024 11:52 AM CDT - 04/27/2024 11:59 PM CDT Hospital Encounter [address] [address] Localization-related symptomatic epilepsy and epileptic syndromes with complex partial seizures, not intractable, without status epilepticus (HCC) Discharge Disposition: Discharge to home or self care 04/27/2024 11:45 AM CDT Lab [facility] Outpatient Lab at [address] [phone] 04/23/2024 Telephone [facility] Primary Care at [address] [phone] Servando Torre MD Medical Question/Miscellaneou [...] Breast cancer Mother Akilah Mccarthy Stroke Mother Akilah Mccarthy afib Mother Akilah Mccarthy Relation Name Status Comments Father Claus Garcia [...] file Legal Sex Female 9:30 AM NETWORK CABLE INSTALLER Gender Identity Female 04/05/2022 6:17 PM CDT Sexual Orientation Straight 04/05/2022 6: 17 PM CDT Obstetrics History Last Filed Vital Signs Vital Sign Reading Time Taken Comments Blood Pressure 129/77 07/08/2024 3:11 PM NETWORK CABLE INSTALLER Pulse 72 07/08/2024 3:11 PM NETWORK CABLE INSTALLER Temperature 36.8 ??C (98.2 ??F) 07/08/2024 3:11 PM CS T Respiratory Rate 18 07/05/2024 3:02 PM NETWORK CABLE INSTALLER Oxygen Saturation 98% 07/08/2024 3:11 PM NETWORK CABLE INSTALLER Inhaled Oxygen Concentration - - Weight 65.8 kg (145 lb) 07/08/2024 3:11 PM NETWORK CABLE INSTALLER Height 157.5 cm (5' 2 ) 07/08/2024 3:11 PM NETWORK CABLE INSTALLER Body Mass Index 26.52 07/08/2024 3:11 PM NETWORK CABLE INSTALLER Plan of Treatment Health Maintenance Due Date [...] Read Routine (OP Routine) 07/11/2024 9:14 AM NETWORK CABLE INSTALLER URINALYSIS, MICROSCOPIC ONLY Routine 07/02/2024 10:20 AM NETWORK CABLE INSTALLER Weakness generalized EGFR Routine 07/02/2024 10:20 AM NETWORK CABLE INSTALLER Weakness generalized DIFFERENTIAL AUTO Routine 07/02/2024 10: 20 AM NETWORK CABLE INSTALLER Weakness generalized CBC WITH AUTO DIFFERENTIAL Routine 07/02/2024 10:20 AM NETWORK CABLE INSTALLER Weakness generalized COMPREHENSIVE METABOLIC PANEL Routine 07/02/2024 10:20 AM NETWORK CABLE INSTALLER Weakness generalized ALBUMIN CREATININE RATIO, URINE Routine 07/02/2024 10:20 AM NETWORK CABLE INSTALLER Hypertension associated with diabetes (HCC) HEMOGLOBIN A1C Routine 07/02/2024 10:20 AM NETWORK CABLE INSTALLER Hypertension associated with diabetes (HCC) LAMOTRIGINE LEVEL Routine 07/02/2024 10: 20 AM NETWORK CABLE INSTALLER Seizure (HCC) LIPID PANEL Routine 07/02/2024 10:20 AM NETWORK CABLE INSTALLER Hypertension associated with diabetes (HCC) URINALYSIS AND REFLEX TO MICROSCOPIC AND CULTURE Routine 07/02/2024 10:20 AM NETWORK CABLE INSTALLER Weakness generalized XR SPINE LUMBAR 2 OR 3 VIEWS Schedule SHIRA, Read SHIRA (Appt Today, Awaiting Results) 06/18/2024 3:04 PM NETWORK CABLE INSTALLER Accidental fall, subsequent encounter XR HIP LEFT 2 OR 3 VIEWS Schedule SHIRA, Read SHIRA (Appt Today, Awaiting Results) 06/18/2024 3:04 PM NETWORK CABLE INSTALLER Accidental fall, subsequent encounter XR KNEE RIGHT [...] TOMOGRAPHY (CT) WITHOUT CONTRAST (07/11/2024 9:14 AM NETWORK CABLE INSTALLER) Anatomical Region Laterality Modality N/A Computed Tomogra phy us Marcell Rucker MD IMG CT PROCEDURES Final Result * eGFR (07/02/2024 10:20 AM NETWORK CABLE INSTALLER) eGFR 66 >=60 mL/min/1. 73 m2 Comment: [...] reviewed 2021. Blood 07/02/2024 10:2 0 AM NETWORK CABLE INSTALLER 07/02/2024 5:35 PM NETWORK CABLE INSTALLER us Kimberly Nicolas MD LAB BLOOD ORDERABLES Final Resu lt Performing Organization Address City/State/ZIP Co nm Phone Number AILE[facility] [phone] Department [place] [address] * Differential, auto (07/02/2024 10:20 AM NETWORK CABLE INSTALLER) Neutrophil abs 5.1 1.5 - 6.5 K/cumm Imm gran abs 0.0 0.0 - 0.1 K/cumm [facility] Lymphocyte abs 1.4 0.8 - 3.3 K/cumm [facility] Monocyte abs 0.7 0.2 - 0.8 K/cumm [facility] Eosinophil abs 0.3 0.0 - 0.5 K/cumm [facility] Basophil abs 0.0 0.0 - 0.1 K/cumm [facility] Neutrophil pct 68.0 % [facility] Comment: Interpretive Data Percent cell count reference [...] on 2017. Basophil pct 0.4 % [facility] Comment: Interpretive Data Percent cell count reference ranges are not reported, since discordance with absolute values may lead to misinterpretation of CBC data. Current Interpretive Data was last revised on 2017. Blood 07/02/2024 10:2 0 AM NETWORK CABLE INSTALLER 07/02/2024 5:00 PM NETWORK CABLE INSTALLER us Kimberly Nicolas MD LAB BLOOD ORDERABLES Final Resu lt [facility] [address] Department [place] [address] * (ABNORMAL) Urinalysis reflex to microscopic and culture Urine, clean voided (07/02/2024 10:20 AM NETWORK CABLE INSTALLER) Color, ur Yellow Yellow Clarity, ur Clear [...] stone formation. Source: [facility] [employer] Current Interpretive Data was last revised on [...] Reflex to microscopic UA will be performed. [facility] Urine, clean voided 07/02/2024 10:20 AM NETWORK CABLE INSTALLER 07/02/2024 5:00 PM NETWORK CABLE INSTALLER us Kimberly Nicolas MD LAB MICROBIOLOGY - GENERAL ORDE RABLES Final Result [facility] [address] Department [place] [address] * (ABNORMAL) CBC with auto differential (07/02/2024 10:20 AM NETWORK CABLE INSTALLER) WBC 7.4 3.8 - 9.9 K/cumm Hgb 13.3 11.9 - 15.5 g/dL [facility] Hct 44.2 35.6 - 45.5 % [facility] Plt 296 150 - 400 K/cumm [facility] MPV 9.4 9.1 - 12.3 fL [facility] RBC 4.79 3.90 - 5.20 M/cumm [facility] MCV 92.3 81.3 - 96.4 fL [facility] MCH 27.8 27.1 - 33.3 pg [facility] MCHC 30.1(L) 32.3 - 35.7 g/dL [facility] CH RDW CV 13.0 11.1 - 14.9 % [facility] RDW SD 43.8 35.7 - 48.1 fL [facility] NRBC abs 0.00 0.00 - 0.01 K/cumm [facility] Blood 07/02/2024 10:2 0 AM NETWORK CABLE INSTALLER 07/02/2024 5:00 PM NETWORK CABLE INSTALLER us Kimberly Nicolas MD LAB BLOOD ORDERABLES Final Resu lt Performing Organization Address [facility] de Phone Number [facility] [address] [address] Department [place] [address] * (ABNORMAL) Albumin Creatinine Ratio, Urine (07/02/2024 10:20 AM NETWORK CABLE INSTALLER) Albumin Ur 45.5 mg/L Comment: Interpretive Data No reference range established. Current interpretive data was last revised 2018. Creatinine Ur 73.7 mg/dL [facility] Comment: Interpretive Data No reference range established. Current interpretive data was last revised 2018. Albumin Creatinine Ratio, Ur 62(H) 1 - 29 mg/g [facility] Urine 07/02/2024 10:2 0 AM NETWORK CABLE INSTALLER 07/02/2024 5:00 PM NETWORK CABLE INSTALLER us Servando Torre MD LAB URINE ORDERABLES Final Result Performing Organization Address [facility] Co de Phone Number [facility] [phone] [address] Department of [employer] [place], [place] [id number] * Lamotrigine level (07/02/2024 10:20 AM NETWORK CABLE INSTALLER) Lamotrigine 9.6 3.0 - 15.0 mcg/mL [facility] Comment: ADDITIONAL INFORMATION This test was developed and its performance characteristics determined by [facility] in a manner consistent with CLIA requirements. This test has not been cleared or approved by the U.S. Food and Drug Administration. Test Performed by: [facility] [address] [place] [address] [employer] Estimator: Liu Davis Ph.D.; CLIA# [id number] Blood 07/02/2024 10:2 0 AM NETWORK CABLE INSTALLER 07/02/2024 5:00 PM NETWORK CABLE INSTALLER us Servando Torre MD LAB BLOOD ORDERABLES Final Result Performing Organization Address [facility] de Phone Number [facility] MAT[facility]W [address] [place] [address] [facility] * (ABNORMAL) Urinalysis, microscopic only (07/02/2024 10:20 AM NETWORK CABLE INSTALLER) WBC, ur 6-10(A) 0 - 5 /HPF RBC, ur 3-5(A) 0 - 2 /HPF [facility] Epithelial cells, squamous, ur 1-5 0 - 5 /HPF [facility] Mucous, ur Present(A) [facility] Culture Reflex Comment Reflex conditions for urine culture (WBC >10) not met. [facility] Urine, clean voided 07/02/2024 10:20 AM NETWORK CABLE INSTALLER 07/02/2024 5:00 PM NETWORK CABLE INSTALLER us Kimberly Nicolas MD LAB URINE ORDERABLES Final Resu lt Performing Organization Address [facility] Co de Phone Number [facility] MATTHE[facility] [address] [place] [address] * (ABNORMAL) Hemoglobin A1c (07/02/2024 10:20 AM NETWORK CABLE INSTALLER) Hgb A1C 6.4(H) 4.0 - 5.6 % Estimated Average Glucose 137 mg/dL [facility] Comment: The ADA recommends reporting an estimated Average Glucose (eAG) with all Hemoglobin A1c results using the equation derived from a study of 507 normal and diabetic adults. ??Minority populations were underrepresented and children were not included. ?? (Diabetes Care 31:8021-5756, 2008). ??The eAG is not equivalent to a fasting glucose. Blood 07/02/2024 10:2 0 AM NETWORK CABLE INSTALLER 07/02/2024 5:00 PM NETWORK CABLE INSTALLER us Servando Torre MD LAB BLOOD ORDERABLES Final Result [facility] [address] Department of Laboratories [place] [phone] * (ABNORMAL) Lipid panel (07/02/2024 10:20 AM NETWORK CABLE INSTALLER) Pathologist [facility] Cholesterol 190 30 - 199 mg/dL [...] 3. Jayy Melchor et al. IFTIKHAR Cardiol. 2019November 25;5(5):540-548. doi: 10.1001/jamacardio.2020.0013 Current Interpretive Data was last revised on 2024. Non-HDL Cholesterol 138 mg/dL [facility] Comment: Interpretive Data Ages [...] [facility] Blood 07/02/2024 10:2 0 AM NETWORK CABLE INSTALLER 07/02/2024 5:00 PM NETWORK CABLE INSTALLER us Servando Torre MD LAB BLOOD ORDERABLES Final Result [facility] [address] [address] Department [place] [address] * (ABNORMAL) Comprehensive metabolic panel (07/02/2024 10:20 AM NETWORK CABLE INSTALLER) Sodium 141 135 - 145 mmol/L Potassium, [...] [facility] Blood 07/02/2024 10:2 0 AM NETWORK CABLE INSTALLER 07/02/2024 5:00 PM NETWORK CABLE INSTALLER us Kimberly Nicolas MD LAB BLOOD ORDERABLES Final Resu lt [facility] [address] Department [place] [address] * XR Spine Lumbar 2 or 3 Views (06/18/2024 3:04 PM NETWORK CABLE INSTALLER) Anatomical Region Laterality Modality Spine N/A Digital Radiogra phy 06/18/2024 5:05 PM NETWORK CABLE INSTALLER Narrative 06/18/2024 5:13 PM NETWORK CABLE INSTALLER EXAM DESCRIPTION: XR HIP LEFT 2 OR [...] no change from prior CT. There is wouq-dw-vyuawtwd multilevel degenerative endplate change with no acute [...] D: ??06/18/2024 5:13 PM T: Report ID: [id number] Reading Location: ??[id number] Procedure Note Teofilo Rand MD - 06/18/2024 [...] no change from prior CT. There is njhj-wk-wgaqrfdt multilevel degenerative endplate change with no acute [...] Teofilo Rand M.D. MJ T: Report ID: [id number] Reading Location: [place] [address] Pricilla Olguin NP IMG XR PROCEDURES Final Result * XR Hip Left 2+ Vw (06/18/2024 3:04 PM NETWORK CABLE INSTALLER) Anatomical Region Laterality Modality Lower Extremities, Hip, Pelvis Left D igital Radiography 06/18/2024 5:05 PM NETWORK CABLE INSTALLER Narrative 06/18/2024 5:13 PM NETWORK CABLE INSTALLER EXAM DESCRIPTION: XR HIP LEFT 2 OR [...] no change from prior CT. There is bvda-ic-urngrerw multilevel degenerative endplate change with no acute [...] D: ??06/18/2024 5:13 PM T: Report ID: [id number] Reading Location: ??[id number] Procedure Note Teofilo Rand MD - 06/18/2024 [...] no change from prior CT. There is lslo-pg-ljepmgjm multilevel degenerative endplate change with no acute [...] - Electronically signed by Teofilo Rand M.D. T: Report ID: [id number] Reading Location: [place] [address] Pricilla Olguin NP IMG XR PROCEDURES Final [...] D: ??05/13/2024 4:47 PM T: Report ID: [id number] Reading Location: ??[id number] Procedure Note Dylan Zuniga MD - 05/13/2024 [...] signed by Dylan CARROLL T: Report ID: [id number] Reading Location: [id number] Mara Almendarez NP IMG XR PROCEDURES Final Re sult * Lamotrigine level (04/27/2024 11:52 AM CDT) Lamotrigine 6.3 3.0 - 15.0 mcg/mL [facility] Comment: ADDITIONAL INFORMATION This test was developed and its performance characteristics determined by [facility] in a manner consistent with CLIA requirements. This test has not been cleared or approved by the U.S. Food and Drug Administration. Test Performed by: [facility] [address] [place] [address] [employer] Estimator: Liu Davis Ph.D.; CLIA# [id number] Blood 04/27/2024 11:5 2 AM CDT 04/27/2024 7:35 PM CDT Adria Diop MD LAB BLOOD OR DERABLES Final Result [facility] [address] [address] Department [place] [address] [facility] * Diabetic Eye Exam (06/25/2023) Historical Provider HEALTH MAINTENANCE Final Result * Dexa Axial Skeleton Bone Density 1 or 2 Site (12/12/2022 2:33 PM CDT) Anatomical Region Laterality Modality Body N/A Radiographic Keyanna ging Narrative 12/12/2022 3:00 PM CDT Patient Name: Lisa Allen Date of : 1945 Date of scan: 12/12/2022 Bone mineral density was performed on a HoloRec[employer] Discovery Densitometer. ?? Based on machine cross-calibration [...] by the International Society of Clinical Densitometry. [id number] Servando Torre MD IMG DXA PROCEDURES Final Re sult from Last 3 Months or Most Recently Relevant to Health Maintenance Insurance MEDICARE [facility] MEDICARE SUPPLEMENT MEDICARE BLUE CROSS MEDICARE SUPPLEMENT [facility]ICARE [facility] Advance Directives For more information, please contact: [phone] * Full Code (Latest Code Status on File) Date Activated Date Inactivated Comments 11/29/2022 9:30 AM 11/29/2022 3:28 PM Care Teams Development Intern Relationship Specialty Start Date End Date Servando Torre MD [address] [facility] [address] [place] [address] PCP - General Family Medicine 06/19/22 Mariela Denton MD [facility] [address] [place] [address] Referring Physician Gastroenterology 06/19/22 Lexis Barroso OD [address] [place] [address] Director Workers Compensation 09/19/22
--- OUTSIDE RECORDS SUMMARY | 2024-07-15 17:34 | XMS_ITS | Encounter Summary ---
Author Organization [facility] Healthcare Address [address] [place] [address] Care Team Providers Care Network Communications Engineer Name Role Phone Servando Torre MD Primary Care Provider [phone] Mariela Denton MD Unavailable [phone] [phone] Lexis Barroso OD Unavailable [phone]- [phone] Reason for Referral * Diagnostic Imaging (Routine) - Authorized Specialty Diagnoses / Procedures [facility] To Contact Diagnoses Carotid stenosis, asymptomatic, bilateral Procedures Vl US Carotids Servando Torre MD [address] [place] [address] [address] [place] [address] Phone: tel: fax: [facility] at [address] [place] [address] Phone: tel: fax: Referral ID Status Reason Start Date Expiration Date V isits Requested Visits Authorized [id number] Authorized 07/05/2024 08/04/2025 1 1 ET MANAGER Reason for Visit * Reason Comments Medicare Annual Wellness Visit Subsequen t Medicare wellness Encounter Details Date Type Department Care Team (Late st Contact Info) Description 07/05/2024 3:00 PM BUFFET MANAGER Office Visit [facility] [place] [phone] Servando Torre MD [address] [facility] [address] [place] [address] Encounter for Medicare annual wellness exam (Primary [...] on file Legal Sex Female 9:30 AM BUFFET MANAGER Gender Identity Female 04/05/2022 6:17 PM CDT Sexual Orientation Straight 04/05/2022 6: 17 PM CDT documented as of this encounter Last Filed Vital Signs Vital Sign Reading Time Taken Comments Blood Pressure 128/70 07/05/2024 3:02 PM BUFFET MANAGER Pulse 56 07/05/2024 3:02 PM BUFFET MANAGER Temperature 36.3 ??C (97.3 ??F) 07/05/2024 3:02 PM CS T Respiratory Rate 18 07/05/2024 3:02 PM BUFFET MANAGER Oxygen Saturation 96% 07/05/2024 3:02 PM BUFFET MANAGER Inhaled Oxygen Concentration - - Weight 66.7 kg (147 lb) 07/05/2024 3:02 PM BUFFET MANAGER Height 157.5 cm (5' 2 ) 07/05/2024 3:02 PM BUFFET MANAGER Body Mass Index 26.89 07/05/2024 3:02 PM BUFFET MANAGER documented in this encounter Patient Instructions * Patient Instructions* Servando Torre MD - 07/05/2024 3:00 PM BUFFET MANAGER Continue work with PT and OT Do [...] you have any questions or concerns at [phone]. You may receive a phone call, text, MYCHART message, or e-mail asking about your care today. We would love to hear your feedback on how EXCELLENT your care wastoday! Wishing you better health, always. Dr. Torre ET MANAGER ET MANAGER documented in this encounter Ordered Prescriptions [...] living will or durable power of attorney general?: Yes Do you have to strain or [...] as Referring Physician (Gastroenterology) Lexis Barroso OD ([employer]) Primary Pharmacy/DME suppliers: [address] [facility] [address] Detection of Cognitive Impairment: Mini-Co The patient [...] Improve Diet Advanced Directive Durable Power of Small Order Cutter: Yes Living Will: Yes Opioid Usage Review [...] mellitus (HCC) Comments: continuing pravavstatin changed to [facility] Orders: - pravastatin (PRAVACHOL) 80 mg tablet; Take 1 tablet (80 mg total) by mouth nightly - Lipid panel; Future - Hemoglobin A1c; Future Hypertension associated with diabetes (HCC) Comments: BP is controlled continuing losartan, metoprolol Orders: - CBC with auto differential; Future - Comprehensive metabolic panel; Future - Thyroid Function [place]; Future - Hemoglobin A1c; Future Gastroesophageal reflux disease without esophagitis - CBC with auto differential; Future At risk for falls Comments: working with PT/OT at [facility]) over the last month Carotid stenosis, asymptomatic, [...] update and summary of today's office visit. ET MANAGER * Asif Toscano MA - 07/05/2024 3:00 PM CST Script for pravastatin has been faxed to [facility]. ET MANAGER documented in this encounter Miscellaneous Notes * Assessment & Plan Note - Servando Torre MD - 07/05/2024 3:20 PM BUFFET MANAGER Associated Problem(s): Encounter for Medicare annual wellness [...] and seat belts. Return in 3 months ET MANAGER * Addendum Note - Asif Toscano MA - 07/05/2024 3:00 PM CSTAddended by: ASIF TOSCANO on: 07/05/2024 04:22 PM Modules accepted: Orders ET MANAGER documented in this encounter Plan of [...] (HCC) Expected: 01/03/2025, Expires: 07/05/2025 Thyroid Function [facility] Routine Hypertension associated with diabetes (HCC) [...] documented as of this encounter Care Teams Network Communications Engineer Relationship Specialty Start Date End Date Servando Torre MD [address] [address] PCP - General Family Medicine 06/19/22 Mariela Denton MD [address] [place] [address] Referring Physician Gastroenterology 06/19/22 Lexis Barroso OD [address] [place] [id number] [employer] 09/19/22 documented as of this encounter
--- OUTSIDE RECORDS SUMMARY | 2024-07-15 17:34 | XMS_ITS | Encounter Summary ---
Author Organization [facility] Address [address] [place] [address] Phone Care Team Providers Care Table Cover Folder Name Role Phone Servando Torre MD Primary Care Provider [phone]- [phone] Mariela Denton MD Unavailable [phone] [phone] Lexis Barroso OD Unavailable [phone]- [phone] Reason for Visit * Reason Onset Date Comments Medication Problem 07/09/2024 Request For Order(s) 07/09/2024 Encounter Details Date Type Department Care Team (Late st Contact Info) Description 07/09/2024 Telephone [facility] Epilepsy [address] [facility] 6th [place] [address] [place] [address] Adria Burleson MD [address] [facility] [address] [place] [address] Medication Problem; Request For Order(s) [...] on file Legal Sex Female 9:30 AM POWER CLEANER OPERATOR Gender Identity Female 04/05/2022 6:17 PM CDT Sexual Orientation Straight 04/05/2022 6: 17 PM CDT documented as of this encounter Miscellaneous Notes * Telephone Encounter - Jenny Parra CMA - 07/09/2024 8:28 AM CST Patients family was notified of no change with LTG dosing at this time. [facility] is communicating with patients family to get lab order sent to appropriate lab. Jenny R CLEANER OPERATOR * Telephone Encounter - Jenny Parra CMA - 07/09/2024 8:28 AM CST ----- Message from Adria Diop MD sent at 07/08/2024 4:24 PM POWER CLEANER OPERATOR ----- Thanks for the update From an epilepsy standpoint, I would prefer to keep her on LTG 200 mg bid It's reassuring she's seizure-free We can get a trough LTG level to make sure levels are WNL TY f ----- Message ----- From: Chelsie Francisco NP Sent: 07/08/2024 4:16 PM POWER CLEANER OPERATOR To: Kimberly Nicolas MD; # Hi Dr. [...] sedation, worsening cognition and falls. Seen at [facility] for falls in ED, she had blood [...] happy to contact dtr. Thank you, Amara R CLEANER OPERATOR documented in this encounter Plan of Treatment Not on file documented as of this encounter Visit Diagnoses Not on filedocumented in this encounter Care Teams Table Cover Folder Relationship Specialty Start Date End Date Servando Torre MD [address] [address] PCP - General Family Medicine 06/19/22 Mariela Denton MD [address] [place] [address] Referring Physician Gastroenterology 06/19/22 Lexis Barroso OD [address] [place] [id number] Industrial Aerial Installer 09/19/22 documented as of this encounter
--- OUTSIDE RECORDS SUMMARY | 2024-07-15 17:34 | XMS_ITS | Referral Summary ---
Author Organization [facility] Address [address] [place] [address] Care Team Providers Care Oil Rig Roughneck Name Role Phone Servando Torre MD Primary Care Provider [phone]- [phone] Mariela Denton MD Unavailable [phone] [phone] Lexis Barroso OD Unavailable +1- [phone] Encounters Date Type Department Care Team Description 07/14/2024 Telephone [facility] Medical [facility] Primary Care at [address] [address] Results 07/12/2024 Orders Only [facility] [address] [place] [phone] Chelsie Francisco NP 07/12/2024 Orders Only [facility] Primary Care at [address] [address] Marcell Rucker MD 07/09/2024 Telephone [facility] Epilepsy [address] [facility] 6th [place] [address] [place] [address] Adria Burleson MD Medication Problem; Request For Order(s) 07/08/2024 3:15 PM CHILDREN'S ATTENDANT Office Visit [facility] [address] [place] [address] Chelsie Francisco NP Somnolence, daytime (Primary Dx); Memory impairment; Frequent falls; Anxiety 07/05/2024 3:00 PM CHILDREN'S ATTENDANT Office Visit [facility] Group Primary Care at [address] [address] Servando Torre MD Encounter for Medicare annual wellness exam (Primary Dx); Mixed diabetic hyperlipidemia associated with type 2 diabetes mellitus (HCC); Hypertension associated with diabetes (HCC); Gastroesophageal reflux disease without esophagitis; At risk for falls; Carotid stenosis, asymptomatic, bilateral 07/02/2024 10:20 AM CHILDREN'S ATTENDANT - 07/02/2024 11:59 PM CHILDREN'S ATTENDANT Hospital Encounter [address] [address] Hypertension associated with diabetes ([facility]); Seizure ([facility]); Weakness generalized Discharge Disposition: Discharge to home or self care 07/02/2024 10:15 AM CHILDREN'S ATTENDANT Lab [facility] Outpatient Lab at [address] [address] Encounter for Medicare annual wellness exam (Primary Dx) 06/29/[address] [facility] [address] [facility] 6th Floor [address] [place] [phone] Kimberly Nicolas MD Weakness generalized (Primary Dx) 06/18/2024 3:00 PM CHILDREN'S ATTENDANT Ancillary Procedure [facility] Medical [facility] Imaging at [address] [address] Accidental fall, subsequent encounter 06/18/2024 2:55 PM CHILDREN'S ATTENDANT Ancillary Procedure [facility] Group Imaging at [address] [phone] Accidental fall, subsequent encounter 06/18/2024 2:30 PM CHILDREN'S ATTENDANT Office Visit [facility] Convenient Care at [address] [address] Pricilla Olguin NP Accidental fall, subsequent encounter (Primary Dx) 05/28/2024 Telephone [facility] Primary Care at [address] [address] Servando Torre MD Medical Question/Miscellaneisaak s 05/19/2024 4:30 PM CDT Office Visit [facility] [address] [facility] 6th [place] [address] [place] [phone] Kimberly Nicolas MD Vascular dementia without behavioral disturbance (HCC) (Primary Dx) 05/18/2024 Orders Only [facility] Gastroenterology [facility] 12th [place] [address] [place] [phone] Ayala Mobley RN Chronic ulcerative colitis, unspecified complication (HCC) (Primary Dx); High risk medications (not anticoagulants) long-term use; Healthcare maintenance; Encounter for screening for other viral diseases 05/15/2024 Telephone [facility] Medical [facility] Convenient Care at [address] [address] Pricilla Olguin NP 05/13/2024 12:25 PM CDT Ancillary Procedure [facility] Medical [facility] Imaging at [address] [address] Fall, initial encounter 05/13/2024 12:00 PM CDT Office Visit [facility] Con[facility]ient Care at [address] [address] Mara Almendarez NP Fall, initial encounter (Primary Dx); Acute pain of right knee 05/12/2024 Nurse Triage [facility] Medical [facility] Primary Care at [address] [address] Servando Torre MD 05/05/2024 9:30 AM CDT Office Visit [facility] Epilepsy [address] [facility] 6th [place] [address] [place] [phone] Adria Burleson MD Localization-related symptomatic epilepsy and epileptic syndromes with complex partial seizures, not intractable, without status epilepticus (HCC) (Primary Dx) 05/05/2024 3:45 PM CDT Office Visit [facility] Gastroenterology [facility] 12th [place] [address] [place] [phone] Josué Cook MD Chronic ulcerative colitis, unspecified complication (HCC) (Primary Dx) 04/27/2024 11:52 AM CDT - 04/27/2024 11:59 PM CDT Hospital Encounter [place] [id number] [place] [address] Localization-related symptomatic epilepsy and epileptic syndromes with complex partial seizures, not intractable, without status epilepticus (HCC) Discharge Disposition: Discharge to home or self care 04/27/2024 11:45 AM CDT Lab [facility] Medical Group Outpatient Lab at [address] [address] 04/23/2024 Telephone [facility] Primary Care at [address] [address] Servando Torre MD Medical Question/Miscellaneou [...] To check blood glucose 50 each 11 08/16/19 23 Active OneTouch Delica Plus Lancet [...] catheter every 8 (eight) weeks Infused at: [facility] ([facility] order in [facility] under 'Procedures' tab). 1 each 5 [...] halfway (current) use of oral hypoglycemic fuentes fabian 02/20/2023 Epilepsy, unspecified, not i ntractable, without [...] in 1-2 weeks. GERD (gastroesophageal reflux disease) Overview (02/07/2023): Last Assessment & Plan: On [...] 05/29 Assessment & Plan (07/05/2024 3:20 PM CHILDREN'S ATTENDANT): A(n) yearly Medicare Annual Wellness Visit has [...] months Assessment & Plan (06/26/2023 2:02 PM CHILDREN'S ATTENDANT): A(n) yearly Medicare Annual Wellness Visit has [...] months Assessment & Plan (06/23/2022 3:06 PM CHILDREN'S ATTENDANT): A(n) initial Medicare Annual Wellness Visit has [...] (06/19/2022): Added automatically from request for surgery [id number] Ear ringing 03/03/2013 Asymmetrical sensorineural hearing loss 03/03/20 13 Stress fracture 07/07/2012 Arthralgia of hip 02/06/2011 Resolved Problems Problem Noted Date Diagnosed Date Resolved Date Hospital discharge follow-up 06/11/2023 08/07/2023 Assessment & Plan (06/11/2023 1:42 PM CHILDREN'S ATTENDANT): I have reviewed the hospital record, medications, [...] on file Legal Sex Female 9:30 AM CHILDREN'S ATTENDANT Gender Identity Female 04/05/2022 6:17 PM CDT Sexual Orientation Straight 04/05/2022 6: 17 PM CDT Last Filed Vital Signs Vital Sign Reading Time Taken Comments Blood Pressure 129/77 07/08/2024 3:11 PM CHILDREN'S ATTENDANT Pulse 72 07/08/2024 3:11 PM CHILDREN'S ATTENDANT Temperature 36.8 ??C (98.2 ??F) 07/08/2024 3:11 PM CS T Respiratory Rate 18 07/05/2024 3:02 PM CHILDREN'S ATTENDANT Oxygen Saturation 98% 07/08/2024 3:11 PM CHILDREN'S ATTENDANT Inhaled Oxygen Concentration - - Weight 65.8 kg (145 lb) 07/08/2024 3:11 PM CHILDREN'S ATTENDANT Height 157.5 cm (5' 2 ) 07/08/2024 3:11 PM CHILDREN'S ATTENDANT Body Mass Index 26.52 07/08/2024 3:11 PM CHILDREN'S ATTENDANT Plan of Treatment Not on file Procedures Procedure Name Priority Date/Time Associated Diagnosis Comments HEAD COMPUTED TOMOGRAPHY (CT) WITHOUT CONTRAST Schedule Routine, Read Routine (OP Routine) 07/11/2024 9:14 AM CHILDREN'S ATTENDANT URINALYSIS, MICROSCOPIC ONLY Routine 07/02/2024 10:20 AM CHILDREN'S ATTENDANT Weakness generalized EGFR Routine 07/02/2024 10:20 AM CHILDREN'S ATTENDANT Weakness generalized DIFFERENTIAL AUTO Routine 07/02/2024 10: 20 AM CHILDREN'S ATTENDANT Weakness generalized CBC WITH AUTO DIFFERENTIAL Routine 07/02/2024 10:20 AM CHILDREN'S ATTENDANT Weakness generalized COMPREHENSIVE METABOLIC PANEL Routine 07/02/2024 10:20 AM CHILDREN'S ATTENDANT Weakness generalized ALBUMIN CREATININE RATIO, URINE Routine 07/02/2024 10:20 AM CHILDREN'S ATTENDANT Hypertension associated with diabetes (HCC) HEMOGLOBIN A1C Routine 07/02/2024 10:20 AM CHILDREN'S ATTENDANT Hypertension associated with diabetes (HCC) LAMOTRIGINE LEVEL Routine 07/02/2024 10: 20 AM CHILDREN'S ATTENDANT Seizure (HCC) LIPID PANEL Routine 07/02/2024 10:20 AM CHILDREN'S ATTENDANT Hypertension associated with diabetes (HCC) URINALYSIS AND REFLEX TO MICROSCOPIC AND CULTURE Routine 07/02/2024 10:20 AM CHILDREN'S ATTENDANT Weakness generalized XR SPINE LUMBAR 2 OR 3 VIEWS Schedule SHIRA, Read SHIRA (Appt Today, Awaiting Results) 06/18/2024 3:04 PM CHILDREN'S ATTENDANT Accidental fall, subsequent encounter XR HIP LEFT 2 OR 3 VIEWS Schedule SHIRA, Read SHIRA (Appt Today, Awaiting Results) 06/18/2024 3:04 PM CHILDREN'S ATTENDANT Accidental fall, subsequent encounter XR KNEE RIGHT [...] TOMOGRAPHY (CT) WITHOUT CONTRAST (07/11/2024 9:14 AM CHILDREN'S ATTENDANT) Anatomical Region Laterality Modality N/A Computed Tomogra phy us Marcell Rucker MD IMG CT PROCEDURES Final Result * eGFR (07/02/2024 10:20 AM CHILDREN'S ATTENDANT) eGFR 66 >=60 mL/min/1. 73 m2 Comment: [...] reviewed 2021. Blood 07/02/2024 10:2 0 AM CHILDREN'S ATTENDANT 07/02/2024 5:35 PM CHILDREN'S ATTENDANT us Kimberly Nicolas MD LAB BLOOD ORDERABLES Final Resu lt [facility] [address] Department [place] [address] * Differential, auto (07/02/2024 10:20 AM CHILDREN'S ATTENDANT) Neutrophil abs 5.1 1.5 - 6.5 K/cumm Imm gran abs 0.0 0.0 - 0.1 K/cumm [facility] Lymphocyte abs 1.4 0.8 - 3.3 K/cumm [facility] Monocyte abs 0.7 0.2 - 0.8 K/cumm [facility] Eosinophil abs 0.3 0.0 - 0.5 K/cumm [facility] Basophil abs 0.0 0.0 - 0.1 K/cumm [facility] Neutrophil pct 68.0 % [facility] Comment: Interpretive Data Percent cell count reference ranges are not reported, since discordance with absolute values may lead to misinterpretation of CBC data. Current Interpretive Data was last revised on 2017. Imm gran pct 0.5 % [facility] Comment: Interpretive Data Percent cell count reference ranges are not reported, since discordance with absolute values may lead to misinterpretation of CBC data. Current Interpretive Data was last revised on 2017. Lymphocyte pct 18.7 % [facility] Comment: Interpretive Data Percent cell count reference ranges are not reported, since discordance with absolute values may lead to misinterpretation of CBC data. Current Interpretive Data was last revised on 2017. Monocyte pct 9.0 % [facility] Comment: Interpretive Data Percent cell count reference ranges are not reported, since discordance with absolute values may lead to misinterpretation of CBC data. Current Interpretive Data was last revised on 2017. Eosinophil pct 3.4 % [facility] Comment: Interpretive Data Percent cell count reference ranges are not reported, since discordance with absolute values may lead to misinterpretation of CBC data. Current Interpretive Data was last revised on 2017. Basophil pct 0.4 % [facility] Comment: Interpretive Data Percent cell count reference ranges are not reported, since discordance with absolute values may lead to misinterpretation of CBC data. Current Interpretive Data was last revised on 2017. Blood 07/02/2024 10:2 0 AM CHILDREN'S ATTENDANT 07/02/2024 5:00 PM CHILDREN'S ATTENDANT us Kimberly Nicolas MD LAB BLOOD ORDERABLES Final Resu lt [facility] [address] Department [place] [address] * (ABNORMAL) Urinalysis reflex to microscopic and culture Urine, clean voided (07/02/2024 10:20 AM CHILDREN'S ATTENDANT) Color, ur Yellow Yellow Clarity, ur Clear [...] stone formation. Source: [facility] [address] Current Interpretive Data was last revised on [...] [facility]ERNER Urine, clean voided 07/02/2024 10:20 AM CHILDREN'S ATTENDANT 07/02/2024 5:00 PM CHILDREN'S ATTENDANT us Kimberly Nicolas MD LAB MICROBIOLOGY - GENERAL MIA LEARY Final Result [facility] [address] Department [place] [address] * (ABNORMAL) CBC with auto differential (07/02/2024 10:20 AM CHILDREN'S ATTENDANT) WBC 7.4 3.8 - 9.9 K/cumm Hgb 13.3 11.9 - 15.5 g/dL [facility] CH Hct 44.2 35.6 - 45.5 % [facility] CH Plt 296 150 - 400 K/cumm [facility] CH MPV 9.4 9.1 - 12.3 fL [facility] CH RBC 4.79 3.90 - 5.20 M/cumm [facility] CH MCV 92.3 81.3 - 96.4 fL [facility] CH MCH 27.8 27.1 - 33.3 pg [facility] CH MCHC 30.1(L) 32.3 - 35.7 g/dL [facility] RDW CV 13.0 11.1 - 14.9 % [facility] RDW SD 43.8 35.7 - 48.1 fL [facility] NRBC abs 0.00 0.00 - 0.01 K/cumm [facility] Blood 07/02/2024 10:2 0 AM CHILDREN'S ATTENDANT 07/02/2024 5:00 PM CHILDREN'S ATTENDANT us Kimberly Nicolas MD LAB BLOOD ORDERABLES Final Resu lt Performing Organization Address [facility] de Phone Number [facility] [address] Department [employer] [place] [address] * (ABNORMAL) Albumin Creatinine Ratio, Urine (07/02/2024 10:20 AM CHILDREN'S ATTENDANT) Albumin Ur 45.5 mg/L Comment: Interpretive Data No reference range established. Current interpretive data was last revised 2018. Creatinine Ur 73.7 mg/dL [facility] Comment: Interpretive Data No reference range established. Current interpretive data was last revised 2018. Albumin Creatinine Ratio, Ur 62(H) 1 - 29 mg/g [facility] Urine 07/02/2024 10:2 0 AM CHILDREN'S ATTENDANT 07/02/2024 5:00 PM CHILDREN'S ATTENDANT us Servando Torre MD LAB URINE ORDERABLES Final Result Performing Organization Address [facility] de Phone Number [facility] [address] [employer] [place] [address] * Lamotrigine level (07/02/2024 10:20 AM CHILDREN'S ATTENDANT) Lamotrigine 9.6 3.0 - 15.0 mcg/mL [facility] ref Lab Comment: ADDITIONAL INFORMATION This test was developed and its performance characteristics determined by [facility] in a manner consistent with CLIA requirements. This test has not been cleared or approved by the U.S. Food and Drug Administration. Test Performed by: [facility] - [facility] [address] [place] [address] Buffer Automatic: Liu Davis Ph.D.; CLIA# [id number] Blood 07/02/2024 10:2 0 AM CHILDREN'S ATTENDANT 07/02/2024 5:00 PM CHILDREN'S ATTENDANT Servando Torre MD LAB BLOOD ORDERABLES Final Result Performing Organization Address [facility] de Phone Number [facility] [address] [employer] [place] [address] [facility] Lab * (ABNORMAL) Urinalysis, microscopic only (07/02/2024 10:20 AM CHILDREN'S ATTENDANT) WBC, ur 6-10(A) 0 - 5 /HPF RBC, ur 3-5(A) 0 - 2 /HPF [facility] Epithelial cells, squamous, ur 1-5 0 - 5 /HPF [facility] Mucous, ur Present(A) [facility] Culture Reflex Comment Reflex conditions for urine culture (WBC >10) not met. [facility] Urine, clean voided 07/02/2024 10:20 AM CHILDREN'S ATTENDANT 07/02/2024 5:00 PM CHILDREN'S ATTENDANT Kimberly Nioclas MD LAB URINE ORDERABLES Final Resu lt Performing Organization Address [facility] Co de Phone Number [facility] MATTHEW [address] [facility] [employer] [place] [address] * (ABNORMAL) Hemoglobin A1c (07/02/2024 10:20 AM CHILDREN'S ATTENDANT) Hgb A1C 6.4(H) 4.0 - 5.6 % Estimated Average Glucose 137 mg/dL [facility] Comment: The ADA recommends reporting an estimated Average Glucose (eAG) with all Hemoglobin A1c results using the equation derived from a study of 507 normal and diabetic adults. ??Minority populations were underrepresented and children were not included. ?? (Diabetes Care 31:9745-6756, 2008). ??The eAG is not equivalent to a fasting glucose. Blood 07/02/2024 10:2 0 AM CHILDREN'S ATTENDANT 07/02/2024 5:00 PM CHILDREN'S ATTENDANT us Servando Torre MD LAB BLOOD ORDERABLES Final Result Performing Organization Address City/State/ZIP Co wy Phone Number [facility] [address] Department of Laboratories [place] [phone] * (ABNORMAL) Lipid panel (07/02/2024 10:20 AM CHILDREN'S ATTENDANT) Cholesterol 190 30 - 199 mg/dL Comment: [...] [facility]ERNER CH Blood 07/02/2024 10:2 0 AM CHILDREN'S ATTENDANT 07/02/2024 5:00 PM CHILDREN'S ATTENDANT us Servando Torre MD LAB BLOOD ORDERABLES Final Result [facility] [address] Department [place] [address] * (ABNORMAL) Comprehensive metabolic panel (07/02/2024 10:20 AM CHILDREN'S ATTENDANT) Sodium 141 135 - 145 mmol/L Potassium, [...] CERNER CH Blood 07/02/2024 10:2 0 AM CHILDREN'S ATTENDANT 07/02/2024 5:00 PM CHILDREN'S ATTENDANT us Kimberly Nicolas MD LAB BLOOD ORDERABLES Final Resu lt [facility] [address] Department [place] [address] * XR Spine Lumbar 2 or 3 Views (06/18/2024 3:04 PM CHILDREN'S ATTENDANT) Anatomical Region Laterality Modality Spine N/A Digital Radiogra phy 06/18/2024 5:05 PM CHILDREN'S ATTENDANT Narrative 06/18/2024 5:13 PM CHILDREN'S ATTENDANT EXAM DESCRIPTION: XR HIP LEFT 2 OR [...] no change from prior CT. There is jrld-bw-fgngrlxv multilevel degenerative endplate change with no acute [...] D: ??06/18/2024 5:13 PM T: Report ID: [id number] Reading Location: ??[id number] Procedure Note Teofilo Rand MD - 06/18/2024 [...] no change from prior CT. There is iuif-cx-vriivkmd multilevel degenerative endplate change with no acute [...] Teofilo Rand M.D. MJ T: Report ID: [id number] Reading Location: [place] [address] [address] RETIREMENT CONSULTANT IMG XR PROCEDURES Final Result * XR Hip Left 2+ Vw (06/18/2024 3:04 PM CHILDREN'S ATTENDANT) Anatomical Region Laterality Modality Lower Extremities, Hip, Pelvis Left D igital Radiography 06/18/2024 5:05 PM CHILDREN'S ATTENDANT Narrative 06/18/2024 5:13 PM CHILDREN'S ATTENDANT EXAM DESCRIPTION: XR HIP LEFT 2 OR [...] no change from prior CT. There is orhb-po-ouasqsdt multilevel degenerative endplate change with no acute [...] D: ??06/18/2024 5:13 PM T: Report ID: [id number] Reading Location: ??[id number] Procedure Note Teofilo Rand MD - 06/18/2024 [...] no change from prior CT. There is bbmj-tl-wganojbn multilevel degenerative endplate change with no acute [...] Teofilo Rand M.D. MJ T: Report ID: [id number] Reading Location: [place] [address] [address] Olguin NP IMG XR PROCEDURES Final [...] D: ??05/13/2024 4:47 PM T: Report ID: [id number] Reading Location: ??[id number] Procedure Note Dylan Zuniga MD - 05/13/2024 [...] signed by Dylan CARROLL T: Report ID: [id number] Reading Location: [id number] Mara Almendarez RETIREMENT CONSULTANT IMG XR PROCEDURES Final Re sult * Lamotrigine level (04/27/2024 11:52 AM CDT) Lamotrigine 6.3 3.0 - 15.0 mcg/mL [facility] ref Lab Comment: ADDITIONAL INFORMATION This test was developed and its performance characteristics determined by [facility] in a manner consistent with CLIA requirements. This test has not been cleared or approved by the U.S. Food and Drug Administration. Test Performed by: [facility] - [address] [address] Buffer Automatic: Liu Davis Ph.D.; CLIA# [id number] Blood 04/27/2024 11:5 2 AM CDT 04/27/2024 7:35 PM CDT Adria Diop MD LAB BLOOD OR DERABLES Final Result [facility] MAT[facility]W [address] Department [place] [address] [facility] ref [facility] * Diabetic Eye Exam (06/25/2023) Historical Provider HEALTH MAINTENANCE Final Result * Dexa Axial Skeleton Bone Density 1 or 2 Site (12/12/2022 2:33 PM CDT) Anatomical Region Laterality Modality Body N/A Radiographic Keyanna ging Narrative 12/12/2022 3:00 PM CDT Patient Name: Lisa Allen Date of : 1945 Date of scan: 12/12/2022 Bone mineral density was performed on a [employer]bet[employer] Discovery Densitometer. ?? Based on machine cross-calibration [...] mineral density scan were prepared by Myah Lacy(R) CBDT ??who is accredited by the International Society of Clinical Densitometry. The overall patient assessment and scan interpretation were performed by Josep Mathew MD ??who is certified by the International Society of Clinical Densitometry. [id number] Servando Torre MD IMG DXA PROCEDURES Final Re sult from Last 3 Months or Most Recently Relevant to Health Maintenance Insurance MEDICARE [facility] MEDICARE SUPPLEMENT MEDICARE BLUE CROSS MEDICARE SUPPLEMENT MEDICARE [facility] MEDICARE [facility] Advance Directives For more information, please contact: [phone] * Full Code (Latest Code Status on File) Date Activated Date Inactivated Comments 11/29/2022 9:30 AM 11/29/2022 3:28 PM Care Teams Oil Rig Roughneck Relationship Specialty Start Date End Date Servando Torre MD [id number] [address] PCP - General Family Medicine 06/19/22 Mariela Denton MD [address] [place] [address] Referring Physician Gastroenterology 06/19/22 Lexis Barroso OD [address] [place] [address] Key Sander 09/19/22
--- OUTSIDE RECORDS SUMMARY | 2024-07-15 17:34 | XMS_ITS | Encounter Summary ---
Author Organization [facility] Address [address] [place] [address] Care Team Providers Care Healthcare Project Manager Name Role Phone Servando Torre MD Primary Care Provider [phone]- [phone] Mariela Denton MD Unavailable + [phone] Lexis Barroso OD Unavailable +1- [phone] Reason for Referral * Diagnostic Imaging (Routine) - Closed Specialty Diagnoses / Procedures Referred By Contac t Referred To Contact Radiology Procedures HEAD COMPUTED TOMOGRAPHY ([place]) [place] [id number] [place] [address] Phone: tel: Referral ID Status Reason Start Date Expiration Date Visits Re quested Visits Authorized [id number] Closed 07/12/2024 08/11/2025 1 1 ARCH PROJECT COORDINATOR Encounter Details Date Type Department Care Team (Late st Contact Info) Description 07/12/2024 Orders Only [facility] Primary Care at [address] [address] [place] [id number] [place] [address] Social History Tobacco Use Types [...] on file Legal Sex Female 9:30 AM RESEARCH PROJECT COORDINATOR Gender Identity Female 04/05/2022 6:17 PM CDT Sexual Orientation Straight 04/05/2022 6: 17 PM CDT documented as of this encounter Plan of Treatment Not on file documented as of this encounter Procedures Procedure Name Priority Date/Time Associated Diagnosis Comments HEAD COMPUTED TOMOGRAPHY (CT) WITHOUT CONTRAST Schedule Routine, Read Routine (OP Routine) 07/11/2024 9:14 AM RESEARCH PROJECT COORDINATOR documented in this encounter Results * HEAD COMPUTED TOMOGRAPHY (CT) WITHOUT CONTRAST (07/11/2024 9:14 AM RESEARCH PROJECT COORDINATOR) Anatomical Region Laterality Modality N/A Computed Tomogra phy Marcell Rucker MD IMG CT PROCEDURES Final Result documented in this encounter Visit Diagnoses Not on filedocumented in this encounter Care Teams Healthcare Project Manager Relationship Specialty Start Date End Date Servando Torre MD [address] [facility] [address] [place] [address] PCP - General Family Medicine 06/19/22 Mariela Denton MD [address] [place] [address] Referring Physician Gastroenterology 06/19/22 Lexis Barroso OD [address] [place] [address] Director Of Retail 09/19/22 documented as of this encounter
--- OUTSIDE RECORDS SUMMARY | 2024-07-15 17:34 | XMS_ITS | Encounter Summary ---
Author Organization [facility] Address [address] [place] [address] Phone Care Team Providers Care Director Emergency Name Role Phone Servando Torre MD Primary Care Provider +1 [phone] Mariela Denton MD Unavailable + -[phone] Lexis Barroso OD Unavailable +- [phone] Encounter Details Date Type Department Care Team (Late st Contact Info) Description 07/12/2024 Orders Only [facility] [address] [facility] 6th Floor [address] [place] [address] Chelsie Francisco NP [address] [place] [address] Social History Tobacco Use Types Packs/Day Years [...] on file Legal Sex Female 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
--- OUTSIDE RECORDS SUMMARY | 2024-07-15 17:35 | XMS_ITS | Encounter Summary ---
Author Organization [facility] Healthcare Address [address] [place] [address] Care Team Providers Care Tire And Tube Repairer Name Role Phone Servando Torre MD Primary Care Provider Mariela Denton MD Unavailable +1 [phone] Lexis Barroso OD Unavailable +1- [phone] Encounter Details Date Type Department Care Team (Late st Contact Info) Description 05/15/2024 Telephone [facility] [place] [address] [place] [address] Pricilla Olguin NP 2 [facility] [address] [place] [address] Social History Tobacco Use Types [...] file Legal Sex Female 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 for complaints of confusion. [...] on filedocumented in this encounter Care Teams Tire And Tube Repairer Relationship Specialty Start Date End Date Servando Torre MD [facility] [address] PCP - General Family Medicine 06/19/22 Mariela Denton MD [facility] [address] [place] [address] Referring Physician Gastroenterology 06/19/22 Lexis Barroso OD [address] [place] [address] Qc Chemist 09/19/22 documented as of this encounter
--- OUTSIDE RECORDS SUMMARY | 2024-07-15 17:35 | XMS_ITS | Encounter Summary ---
Author Organization [facility] Healthcare Address [address] [place] [address] Care Team Providers Care Production Scheduler Name Role Phone Servando Torre MD Primary Care Provider [phone]- [phone] Mariela Denton MD Unavailable +1 [phone] Lexis Barroso OD Unavailable +1- [phone] Reason for Visit * Diagnostic Imaging (Routine) - Closed Specialty Diagnoses / Procedures Referred By Angel t Referred To Contact Diagnoses Accidental fall, subsequent encounter Procedures XR Hip Left 2+ Vw Pricilla Olguin NP [facility] [address] Phone: tel: fax: [facility] Referral ID Status Reason Start Date Expiration Date Visits Re quested Visits Authorized [id number] Closed 06/18/2024 07/18/2025 1 1 Encounter Details Date Type Department Care Team (Latest Contact Info) Description 06/18/2024 2:55 PM DRYING EQUIPMENT OPERATOR Ancillary Procedure [facility] Imaging at [address] [address] Accidental fall, subsequent encounter Social [...] on file Legal Sex Female 9:30 AM DRYING EQUIPMENT OPERATOR Gender Identity Female 04/05/2022 6:17 PM CDT Sexual Orientation Straight 04/05/2022 6: 17 PM CDT documented as of this encounter Plan of Treatment Not on file documented as of this encounter Procedures Procedure Name Priority Date/Time Associated Diagnosis Comments XR HIP LEFT 2 OR 3 VIEWS Schedule SHIRA, Read SHIRA (Appt Today, Awaiting Results) 06/18/2024 3:04 PM DRYING EQUIPMENT OPERATOR Accidental fall, subsequent encounter documented in this encounter Results * XR Hip Left 2+ Vw (06/18/2024 3:04 PM DRYING EQUIPMENT OPERATOR) Anatomical Region Laterality Modality Lower Extremities, Hip, Pelvis Left D igital Radiography 06/18/2024 5:05 PM DRYING EQUIPMENT OPERATOR Narrative 06/18/2024 5:13 PM DRYING EQUIPMENT OPERATOR EXAM DESCRIPTION: XR HIP LEFT 2 OR [...] no change from prior CT. There is qovr-ie-vrlaqrxb multilevel degenerative endplate change with no acute [...] D: ??06/18/2024 5:13 PM T: Report ID: [id number] Reading Location: ??[id number] Procedure Note Teofilo Rand MD - 06/18/2024 [...] no change from prior CT. There is vjbu-en-qvuwnbfh multilevel degenerative endplate change with no acute [...] signed by Teofilo ZAFAR T: Report ID: [id number] Reading Location: [place] [address] Pricilla Olguin NP IMG XR PROCEDURES Final Result documented in this encounter Visit Diagnoses Diagnosis Accidental fall, subsequent encounter documented in this encounter Care Teams Production Scheduler Relationship Specialty Start Date End Date Servando Torre MD [address] [facility] [address] [place] [address] PCP - General Family Medicine 06/19/22 Mariela Denton MD [address] [place] [address] Referring Physician Gastroenterology 06/19/22 Lexis Barroso OD [address] [address] Possum Trapper 09/19/22 documented as of this encounter
--- OUTSIDE RECORDS SUMMARY | 2024-07-15 17:35 | XMS_ITS | Encounter Summary ---
Author Organization [facility] Healthcare Address [address] [place] [address] Care Team Providers Care Teacher Of The Sight Impaired Name Role Phone Servando Torre MD Primary Care Provider Mariela Denton MD Unavailable [phone] [phone] Lexis Barroso OD Unavailable +1- [phone] Reason for Referral * Diagnostic Imaging (Routine) - Closed Specialty Diagnoses / Procedures Referred By Angel t Referred To Contact Diagnoses Accidental fall, subsequent encounter Procedures XR Hip Left 2+ Vw Pricilla Olguin NP [address] [place] [address] Phone: tel: fax: [facility] Referral ID Status Reason Start Date Expiration Date Visits Re quested Visits Authorized [id number] Closed 06/18/2024 07/18/2025 1 1 NTORY MANAGER Reason for Visit * Reason Comments Pain Pt c/o 2 falls in e last week and having pain in lower L back and bilateral rib pain. She was xrayed at [facility] at the time of the fall and no fx was seen Encounter Details Date Type Department Care Team (Late st Contact Info) Description 06/18/2024 2:30 PM INVENTORY MANAGER Office Visit [facility] Medical Group [facility] [place] [address] [place] [address] Pricilla Olguin NP [address] [place] [address] [address] [place] [address] Accidental fall, subsequent encounter (Primary Dx) Social [...] on file Legal Sex Female 9:30 AM INVENTORY MANAGER Gender Identity Female 04/05/2022 6:17 PM CDT Sexual Orientation Straight 04/05/2022 6: 17 PM CDT documented as of this encounter Last Filed Vital Signs Vital Sign Reading Time Taken Comments Blood Pressure 116/50 06/18/2024 2:34 PM INVENTORY MANAGER Pulse 76 06/18/2024 2:34 PM INVENTORY MANAGER Temperature 36.4 ??C (97.5 ??F) 06/18/2024 2:34 PM CS T Respiratory Rate 18 06/18/2024 2:34 PM INVENTORY MANAGER Oxygen Saturation 96% 06/18/2024 2:34 PM INVENTORY MANAGER Inhaled Oxygen Concentration - - Weight - - Height 157.5 cm (5' 2 ) 06/18/2024 2:34 PM INVENTORY MANAGER Body Mass Index - - documented in [...] bilateral rib pain. She was xrayed at [facility] at the time of the fall and no fx was seen) Patient presents to convenient care with daughter for complaints of left hip and lower back pain bilaterally. Patient and daughter state that patient fell Friday morning and Friday evening of this week. 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 Occasional wrong-word or 'pdqvx-k-crzo' substitutions may have occurred due to the inherent limitations of voice recognition software. Read the chartcarefully and recognize, using context, where substitutions have occurred. NTORY MANAGER NTORY MANAGER documented in this encounter Plan of Treatment Not on file documented as of this encounter Results * XR Hip Left 2+ Vw (06/18/2024 3:04 PM INVENTORY MANAGER) Anatomical Region Laterality Modality Lower Extremities, Hip, Pelvis Left D igital Radiography 06/18/2024 5:05 PM INVENTORY MANAGER Narrative 06/18/2024 5:13 PM INVENTORY MANAGER EXAM DESCRIPTION: XR HIP LEFT 2 OR [...] no change from prior CT. There is erfl-km-jxgyhuxf multilevel degenerative endplate change with no acute [...] D: ??06/18/2024 5:13 PM T: Report ID: [id number] Reading Location: ??[id number] Procedure Note Teofilo Rand MD - 06/18/2024 [...] no change from prior CT. There is rggu-rf-norqdrwd multilevel degenerative endplate change with no acute [...] Teofilo Rand M.D. MJ T: Report ID: [id number] Reading Location: [place] [address] Pricilla Olguin DRY GOODS CLERK IMG XR PROCEDURES Final Result documented in [...] 07/05/2024 added in this encounter Care Teams Teacher Of The Sight Impaired Relationship Specialty Start Date End Date Servando Torre MD [facility] [address] [address] PCP - General Family Medicine 06/19/[address] [facility] [address] [facility] [facility] [address] [place] [address] Referring Physician Gastroenterology 06/19/22 Lexis Barroso OD [address] [place] [address] Taker Away 09/19/22 documented as of this encounter
--- OUTSIDE RECORDS SUMMARY | 2024-07-15 17:35 | XMS_ITS | Encounter Summary ---
Author Organization [facility] Address [address] [place] [address] Phone Care Team Providers Care Solid Center Winder Name Role Phone Servando Torre MD Primary Care Provider +1 [phone] Mariela Denton MD Unavailable + [phone] Lexis Barroso OD Unavailable +1- [phone] Encounter Details Date Type Department Care Team (Late st Contact Info) Description 06/29/2024 Orders Only [facility] [address] [facility] 6th Floor [address] [place] [address] Kimberly Nicolas MD [address] [facility] [address] [place] [address] Weakness generalized (Primary Dx) Social History Tobacco [...] on file Legal Sex Female 9:30 AM TRACTOR MECHANIC HELPER Gender Identity Female 04/05/2022 6:17 PM CDT Sexual Orientation Straight 04/05/2022 6: 17 PM CDT documented as of this encounter Miscellaneous Notes * Addendum Note - Lydia Otto - 06/29/2024 11:17 AM CSTAddended by: LYDIA OTTO on: 07/02/2024 10:20 AM Modules accepted: Orders TOR MECHANIC HELPER documented in this encounter Plan of Treatment Not on file documented as of this encounter Results * (ABNORMAL) CBC with auto differential (07/02/2024 10:20 AM TRACTOR MECHANIC HELPER) WBC 7.4 3.8 - 9.9 K/cumm Hgb 13.3 11.9 - 15.5 g/dL [facility] Hct 44.2 35.6 - 45.5 % [place] Plt 296 150 - 400 K/cumm [facility] MPV 9.4 9.1 - 12.3 fL [facility] RBC 4.79 3.90 - 5.20 M/cumm [facility] MCV 92.3 81.3 - 96.4 fL [facility] MCH 27.8 27.1 - 33.3 pg [facility] MCHC 30.1(L) 32.3 - 35.7 g/dL [facility] RDW CV 13.0 11.1 - 14.9 % [facility] CH RDW SD 43.8 35.7 - 48.1 fL [facility] NRBC abs 0.00 0.00 - 0.01 K/cumm [facility] CH Blood 07/02/2024 10:2 0 AM TRACTOR MECHANIC HELPER 07/02/2024 5:00 PM TRACTOR MECHANIC HELPER us Kimberly Nicolas MD LAB BLOOD ORDERABLES Final Resu lt AILEEN MATTHEW [address] Department [place] [address] * (ABNORMAL) Comprehensive metabolic panel (07/02/2024 10:20 AM TRACTOR MECHANIC HELPER) Sodium 141 135 - 145 mmol/L Potassium, [...] CERNER CH Blood 07/02/2024 10:2 0 AM TRACTOR MECHANIC HELPER 07/02/2024 5:00 PM TRACTOR MECHANIC HELPER us Kimberly Nicolas MD LAB BLOOD ORDERABLES Final Resu lt AILEEN MATTHEW [address] Department [place] [address] * (ABNORMAL) Urinalysis reflex to microscopic and culture Urine, clean voided (07/02/2024 10:20 AM TRACTOR MECHANIC HELPER) Color, ur Yellow Yellow Clarity, ur Clear [...] tendency for uric acid stone formation. Source: [facility] CitySourced Current Interpretive Data was last revised on [...] CH Urine, clean voided 07/02/2024 10:20 AM TRACTOR MECHANIC HELPER 07/02/2024 5:00 PM TRACTOR MECHANIC HELPER us Kimberly Nicolas MD LAB MICROBIOLOGY - [facility] MIA LEARY Final Result Performing Organization Address City/State/[facility] Co wi Phone Number [facility] [address] Department [place] [address] documented in this encounter Visit Diagnoses Diagnosis Weakness generalized- Primary Other malaise and fatigue documented in this encounter Care Teams Solid Center Winder Relationship Specialty Start Date End Date Servando Torre MD [address] [facility] [address] [place] [address] PCP - General Family Medicine 06/19/22 Mariela Denton MD [address] [place] [address] Referring Physician Gastroenterology 06/19/22 Lexis Barroso OD [address] [place] [address] Bucket Pusher 09/19/22 documented as of this encounter
--- OUTSIDE RECORDS SUMMARY | 2024-07-15 17:35 | XMS_ITS | Encounter Summary ---
Author Organization [facility] Address [address] [place] [address] Phone Care Team Providers Care International Guest Coordinator Name Role Phone Servando Torre MD Primary Care Provider +1 [phone] Mariela Denton MD Unavailable +1 [phone] Lexis Barroso OD Unavailable +1- [phone] Encounter Details Date Type Department Care Team (Late st Contact Info) Description 05/19/2024 4:30 PM CDT Office Visit [facility] [address] [facility] 6th [place] [address] [place] [address] Grace Nicolas MD [address] 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 Radha Allen (: 1945) [facility], Department of Neurology [...] today. You may wish to consult an privacy attorney regarding these matters. Level of Care [...] in about a year. . You can [phone] if you have questions about scheduling. If we ordered blood tests today, please stop by the [employer] patient testing area on the third floorto have your blood drawn. This is across from the [employer], in the same direction as the [employer] [facility] parking garage. You should continue to see your primary care doctor at regular intervals. RESOURCES FOR ADDITIONAL INFORMATION AND SUPPORT We will refer you to our Alzheimer Association Entertainer Or Variety Artist. The social science manager will call you in the next 7-10 days. Alzheimer's Association of [place] Chapter: ; (toll free); http://www.alz.org [facility] [phone] http://memorycarehs [facility] Agency on Aging (serving [facility]) http://[facility].[place].org/government/hslaaa.html [facility] Agency on Aging (serving [place], [facility] and [facility] http://www.[facility] army medical centeraaa.org [facility]- provides counseling and help with the aging and ailments of our loved ones. They may be able to provide counseling in your home as well as in their office and services may be covered by Medicare. [address], [place] [address] or [email or web address]. Website: http://[employer]/services/qwzdjc-jpnt-zhqoxpcr/ [employer], Cognitive Stimulation Through Activity at the [place] [employer]. [address] [place] [address] http://www.Organic Society/project/dpkr-xu-zdqvmt/ Lewy Body Dementia Association: (toll free); http://www.LBDA.org Association for Frontotemporal Dementias: (toll free); http://www.ftd-picks.org Geriatric Apartment Maintenance Technician: [employer] consulting, Ms. Varsha Mcgarry, https://www.decisionpointconsulting.org/ Pathways for aging http://[employer]/ Yessy Anthony with Next Step Elder Assist, Certified Protective Signal Installer, [address], [address] [address]. , fax: [phone]. [email or web address] documented in this encounter Ordered Prescriptions Prescription [...] PATIENT FOLLOW-UP VISIT Grace Nicolas MD, MSc [employer] Department of Neurology Patient Name: RADHA ALLEN Medical Record Number (MRN): [id number] Date of (): 1945 Encounter Date: 05/19/2024 Primary Care Practitioner: Servando Ballard MD CHIEF COMPLAINT / Review of Past Visits Ms. Allen returns today for follow-up concerning her diagnosis of (F01.50) Vascular dementia withoutbehavioral disturbance (HCC) (primary encounter diagnosis) . She was last assessed in 10/2023 by CINDER SNAPPER Pamela Langston, at which time presented for [...] living facility. She moved into the [facility], to the assisted living. Since our last [...] able to operate household appliances including the circuit rider, laundry machines, and bessemer bottom maker. She has difficulty using technology, including [...] with high-risk medication Abnormal liver function tests [facility] (current) use of oral hypoglycemic drugs Type [...] were symmetric. There was no pronator drift. Gbtfcv-ngmi-tcfkbf testing were normal. No tremor or bradykinesia [...] -Josette singers. 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 - [facility], Friday. She was part of the group . - juan song. - some for . RECENT EVENT PER P: We have group - Josette singers. Working ready for Whitney - we go to nursing homes. Last Friday, I got back. - Whitney - // most of them were. - I can't remember singing vet's day. COGNITIVE TESTING REPORT Please see neurobehavioral exam results (below) and summary sheet in the chart for test scores. On formal neurobehavioral testing, which took from 1611 h to 1640 h, scores were in the mildly impaired range on tests of semantic memory ([place] Naming, verbal fluency). Scores were in the [...] are not specific for subcortical disease . [facility] Neurobehavioral Status Test Results 04/09/2023 7:00 AM 05/19/2024 7:00 AM [facility] Neurobehavioral Status Exam Results Repository ICF signed? No No Verbal Fluency Total Score 10 8 [place] Naming (15 item) Total Score 15 15 [...] Ms. Jose Alfredo Kumar or our Physician Fur Feeder Ms. Marianne Mccullough, in 6 months. --- [...] labs, tests and medical records, time spent dowc-js-ecbz with the patient and family during the visit, performing counselling and education, placing orders and documenting the visit in the patient's EHR. Grace Nicolas MD, MSc Gas Substation Operator Department of Neurology, [facility] Detailed plan and patient/caregiver education and referrals are in AVS copied below: Patient Instructions [facility] - VISIT SUMMARY & PATIENT INSTRUCTIONS For Ms. Radha Allen (: 1945) [facility], Department of Neurology [...] today. You may wish to consult an privacy attorney regarding these matters. Level of Care [...] in about a year. . You can [phone] if you have questions about scheduling. If we ordered blood tests today, please stop by the [facility] patient testing area on the third floorto have your blood drawn. This is across from the [employer], in the same direction as the bridge tothe parking garage. You should continue to see your primary care doctor at regular intervals. RESOURCES FOR ADDITIONAL INFORMATION AND SUPPORT We will refer you to our Alzheimer Association Entertainer Or Variety Artist. The social science manager will call you in the next 7-10 days. Alzheimer's Association [place] Chapter: ; (toll free); http://www.alz.org [facility] [phone] http://memorycareSaint [facility] Agency on Aging (serving [facility]) http://[facility].iowa.[facility]/government/hslaaa.html [facility] Agency on Aging (serving [facility] and [facility] http://www.[facility].org [facility]- provides counseling and help with the aging and ailments of our loved ones. They may be able to provide counseling in your home as well as in their office and services may be covered by Medicare. [address], [place] [address] or [email or web address]. Website: http://[employer]/services/ginfim-pwut-cmwpvrmx/ Mind in Motion, Cognitive Stimulation Through Activity at the [place] [employer]. [address] [facility] [place] [address] http://www.KeepRecipes.Modulus/project/whfq-ev-fskhng/ Lewy Body Dementia Association: (toll free); http://www.LBDA.org Association for Frontotemporal Dementias: (toll free); http://www.ftd-picks.org Geriatric Apartment Maintenance Technician: [employer], Ms. Varsha Mcgarry, https://www.decisionpointconsulting.org/ Pathways for aging http://[employer]/ Yessy Anthony with Next Step Elder Assist, Certified Protective Signal Installer, [address], [place] [address]. , fax: [phone]. [email or web address] documented in this encounter Plan of Treatment [...] documented as of this encounter Care Teams International Guest Coordinator Relationship Specialty Start Date End Date Servando Torre MD [address] [address] PCP - General Family Medicine 06/19/22 Mariela Denton MD [address] [place] [address] Referring Physician Gastroenterology 06/19/22 Lexis Barroso OD [address] [address] Form Designer 09/19/22 documented as of this encounter
--- OUTSIDE RECORDS SUMMARY | 2024-07-15 17:35 | XMS_ITS | Encounter Summary ---
Author Organization [facility] Address [address] [place] [address] Phone Care Team Providers Care Collections Director Name Role Phone Servando Torre MD Primary Care Provider +1 [phone] Mariela Denton MD Unavailable +1 -[phone] Lexis Barroso OD Unavailable +1- [phone] Encounter Details Date Type Department Care Team (Late st Contact Info) Description 05/18/2024 Orders Only [facility] Gastroenterology [address] [facility] 12th [place] [address] [place] [address] Ayala Mobley RN Chronic ulcerative colitis, unspecified [...] on file Legal Sex Female 9:30 AM 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
--- OUTSIDE RECORDS SUMMARY | 2024-07-15 17:35 | XMS_ITS | Encounter Summary ---
Author Organization [facility] Healthcare Address [address] [place] [address] Care Team Providers Care Signal Processing Engineer Name Role Phone Servando Torre MD Primary Care Provider [phone] Mariela Denton MD Unavailable +1 -[phone] Lexis Barroso OD Unavailable +1- [phone] Reason for Visit * Reason Onset Date Comments Medical Question/Miscellaneous 05/28/2024 Encounter Details Date Type Department Care Team (Late st Contact Info) Description 05/28/2024 Telephone [facility] Medical Group Primary Care at [address] [address] Servando Torre MD [address] [place] [address] [address] [place] [address] Medical Question/Miscellaneous Social History Tobacco [...] on file Legal Sex Female 9:[address]UTTER Gender Identity Female 04/05/2022 6:17 PM [...] on filedocumented in this encounter Care Teams Signal Processing Engineer Relationship Specialty Start Date End Date Servando Torre MD [address] [address] PCP - General Family Medicine 06/19/22 Mariela Denton MD [address] [place] [address] Referring Physician Gastroenterology 06/19/22 Lexis Barroso OD [address] [place] [address] Field Assistant 09/19/22 documented as of this encounter
--- OUTSIDE RECORDS SUMMARY | 2024-07-15 17:35 | XMS_ITS | Encounter Summary ---
Author Organization [facility] Healthcare Address [address] [place] [address] Care Team Providers Care Billet Cutter Name Role Phone Servando Torre MD Primary Care Provider +1- [phone] Mariela Denton MD Unavailable [phone] -[phone] Lexis Barroso OD Unavailable +1- [phone] Reason for Visit * Diagnostic Imaging (Routine) - Pending Review Specialty Diagnoses / Procedures Referred By Contac t Referred To Contact Diagnoses Accidental fall, subsequent encounter Procedures XR Spine Lumbar 2 or 3 Views XR Spine Lumbar 4 or More Views Pricilla Olugin NP [address] [place] [address] Phone: tel: fax: [facility] Medical Group Referral ID Status Reason Start Date Expiration Date V isits Requested Visits Authorized [id number] Pending Review 06/18/2024 07/18/2025 1 1 Encounter Details Date Type Department Care Team (Latest Contact Info) Description 06/18/2024 3:00 PM LOG PEELER Ancillary Procedure [facility] Medical Group Imaging at [address] [address] Accidental fall, subsequent encounter Social [...] on file Legal Sex Female 9:30 AM LOG PEELER Gender Identity Female 04/05/2022 6:17 PM CDT Sexual Orientation Straight 04/05/2022 6: 17 PM CDT documented as of this encounter Plan of Treatment Not on file documented as of this encounter Procedures Procedure Name Priority Date/Time Associated Diagnosis Comments XR SPINE LUMBAR 2 OR 3 VIEWS Schedule SHIRA, Read SHIRA (Appt Today, Awaiting Results) 06/18/2024 3:04 PM LOG PEELER Accidental fall, subsequent encounter documented in this encounter Results * XR Spine Lumbar 2 or 3 Views (06/18/2024 3:04 PM LOG PEELER) Anatomical Region Laterality Modality Spine N/A Digital Radiogra phy 06/18/2024 5:05 PM LOG PEELER Narrative 06/18/2024 5:13 PM LOG PEELER EXAM DESCRIPTION: XR HIP LEFT 2 OR [...] no change from prior CT. There is xaso-jl-xmlobisv multilevel degenerative endplate change with no acute [...] D: ??06/18/2024 5:13 PM T: Report ID: [id number] Reading Location: ??[id number] Procedure Note Teofilo Rand MD - 06/18/2024 [...] no change from prior CT. There is uhbr-lu-bskmvdvo multilevel degenerative endplate change with no acute [...] signed by Teofilo ZAFAR T: Report ID: [id number] Reading Location: [place] [address] Pricilla Olguin AUDIO VISUAL PRODUCTION SPECIALIST IMG XR PROCEDURES Final Result documented in this encounter Visit Diagnoses Diagnosis Accidental fall, subsequent encounter documented in this encounter Care Teams Billet Cutter Relationship Specialty Start Date End Date Servando Torre MD [address] [address] PCP - General Family Medicine 06/19/22 Mariela Denton MD [address] [place] [address] Referring Physician Gastroenterology 06/19/22 Lexis Barroso OD [address] [place] [address] Lay Out Helper 09/19/22 documented as of this encounter
--- OUTSIDE RECORDS SUMMARY | 2024-07-15 17:36 | XMS_ITS | Encounter Summary ---
Author Organization [facility] Healthcare Address [address] [place] [address] Care Team Providers Care Maintenance Millwright Name Role Phone Servando Torre MD Primary Care Provider [phone]- [phone] Mariela Denton MD Unavailable [phone] -[phone] Lexis Barroso OD Unavailable +1- [phone] Encounter Details Date Type Department Care Team (Latest Contact Info) Description 04/27/2024 11:52 AM CDT - 04/27/2024 11:59 PM CDT Hospital Encounter [facility] [address] [place] [address] Localization-relate d symptomatic epilepsy and epileptic syndromes [...] on file Legal Sex Female 9:30 AM 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 1 each 5 04/29/2023 metFORMIN XR (GLUCOPHAGE XR) 750 mg 24 hr tablet Take 1 tablet (750 mg total) by mouth daily with breakfast 30 tablet 11 05/16/2023 acetaminophen (acetaminophen Extra Strength) 500 mg tablet Take 1 tablet (500 mg total) by mouth every 6 (six) hours as needed 09/30/2022 4 pravastatin (PRAVACHOL) 40 mg tabletIndications:Mi xed diabetic hyperlipidemia associated with type 2 diabetes mellitus (HCC) Take 1 tablet (40 mg total) by mouth nightly 01/01/2024 4 busPIRone (BUSPAR) 5 mg tabletIndications:Ge neralized Anxiety Disorder Take 1 tablet (5 mg total) by mouth 2 (two) times a day 60 tablet 2 07/07/2023 4 lamoTRIgine (LaMICtal) 150 mg tablet Take 1 tablet (150 mg total) by mouth 2 (two) times a day 180 tablet 1 04/01/2024 4 lamoTRIgine (LaMICtal) 25 mg tablet 04/17/2024 4 rivastigmine (EXELON) 4.6 mg/[address] [...] CDT) Lamotrigine 6.3 3.0 - 15.0 mcg/mL [place] [facility] Comment: ADDITIONAL INFORMATION This test was developed and its performance characteristics determined by [facility] in a manner consistent with CLIA requirements. This test has not been cleared or approved by the U.S. Food and Drug Administration. Test Performed by: [facility] [place] [address] Prepared Foods Supervisor: Liu Davis Ph.D.; CLIA# [id number] Blood 04/27/2024 11:5 2 AM CDT 04/27/2024 7:35 PM CDT us Adria Diop MD LAB BLOOD OR DERABLES Final Result Performing Organization Address City/State/[facility] Co de Phone Number AILEEN [address] [place] [address] [facility] documented in this encounter Visit Diagnoses Diagnosis Localization-related symptomatic epilepsy and epileptic syndromes with complex partial seizures, not intractable, without status epilepticus (HCC) documented in this encounter Care Teams Maintenance Millwright Relationship Specialty Start Date End Date Servando Torre MD [address] [address] PCP - General Family Medicine 06/19/22 Mariela Denton MD [address] [place] [address] Referring Physician Gastroenterology 06/19/22 Lexis Barroso OD [address] [place] [address] Operations Manager Assistant 09/19/22 documented as of this encounter
--- OUTSIDE RECORDS SUMMARY | 2024-07-15 17:36 | XMS_ITS | Encounter Summary ---
Author Organization [facility] Healthcare Address [address] [place] [address] Care Team Providers Care Butter Grader Name Role Phone Servando Torre MD Primary Care Provider Mariela Denton MD Unavailable [phone] -[phone] Lexis Barroso OD Unavailable +1- [phone] Reason for Visit * Reason Onset Date Comments Knee Injury 05/12/2024 Encounter Details Date Type Department Care Team (Late st Contact Info) Description 05/12/2024 Nurse Triage [facility] Medical Group Primary Care at [address] [address] Servando Torre MD [address] [place] [address] [address] [place] [address] Social History Tobacco Use Types [...] file Legal Sex Female 9:30 AM 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 Patient lives at the [facility]. Denies: other symptoms Relevant Meds: elevating leg [...] wants to be seen Protocols used: Knee [id number] * Telephone Encounter - Leena Hoskins RN [...] on filedocumented in this encounter Care Teams Butter Grader Relationship Specialty Start Date End Date Servando Torre MD [address] [facility] [address] [place] [address] PCP - General Family Medicine 06/19/22 Mariela Denton MD [address] [facility] [address] [place] [address] Referring Physician Gastroenterology 06/19/22 Lexis Barroso OD [address] [place] [address] Talent Coordinator 09/19/22 documented as of this encounter
--- OUTSIDE RECORDS SUMMARY | 2024-07-15 17:36 | XMS_ITS | Encounter Summary ---
Author Organization [facility] Address [address] [place] [address] Phone Care Team Providers Care Design Printer Balloon Name Role Phone Servando Torre MD Primary Care Provider +1 [phone] Mariela Denton MD Unavailable +1 -[phone] Lexis Barroso OD Unavailable +1- [phone] Encounter Details Date Type Department Care Team (Late st Contact Info) Description 05/05/2024 3:45 PM CDT Office Visit [facility] Gastroenterology [address] [facility] 12th [place] [address] [place] [address] Josué Cook MD [address] [facility] [address] [place], [place] [id number] Chronic ulcerative colitis, unspecified complication (HCC) (Primary [...] on file Legal Sex Female 9:30 AM PROFILE 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 Gender Identity Female 04/05/2022 6:17 PM [...] up in April 2025 Josué Cook MD Ski Edge Painterstock sorter Department of Gastroenterology [facility] ILE 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 documented in this encounter Plan of Treatment Not on file documented as of this encounter Visit Diagnoses Diagnosis Chronic ulcerative colitis, unspecified complication (HCC)- Primary documented in this encounter Care Teams Design Printer Balloon Relationship Specialty Start Date End Date Servando Torre MD [address] [facility] [address] [place] [address] PCP - General Family Medicine 06/19/22 Mariela Denton MD [address] [place] [address] Referring Physician Gastroenterology 06/19/22 Lexis Barroso OD [address] [place] [address] Welding Machine Assembler 09/19/22 documented as of this encounter
--- OUTSIDE RECORDS SUMMARY | 2024-07-15 17:36 | XMS_ITS | Encounter Summary ---
Author Organization [facility] Address [address] [place] [address] Phone Care Team Providers Care Email Deployment Specialist Name Role Phone Servando Torre MD Primary Care Provider +1 [phone] Mariela Denton MD Unavailable +1 -[phone] Lexis Barroso OD Unavailable +1- [phone] Encounter Details Date Type Department Care Team (Late st Contact Info) Description 04/02/2024 Telephone [facility] Epilepsy [address] [facility] 6th [place] [address] [place] [address] Sherita Licona, ELMO Social History [...] on file Legal Sex Female 9:30 AM RN CORRECTIONS Gender Identity Female 04/05/2022 6:17 PM CDT Sexual Orientation Straight 04/05/2022 6: 17 PM CDT documented as of this encounter Miscellaneous Notes * Telephone Encounter - Sherita Licona RN - 04/02/2024 10:29 AM CDT [facility] called to verify lamotrigine Rx. Confirmed that Lisa should be taking Lamotrigine 150 mg bid. Verbalized understanding. documented in this encounter Plan of Treatment Not on file documented as of this encounter Visit Diagnoses Not on filedocumented in this encounter Care Teams Email Deployment Specialist Relationship Specialty Start Date End Date Servando Torre MD [address] [place] [address] PCP - General Family Medicine 06/19/22 Mariela Denton MD [facility] [address] [place] [address] Referring Physician Gastroenterology 06/19/22 Lexis Barroso OD [address] [place] [address] Order Picker 09/19/22 documented as of this encounter
--- OUTSIDE RECORDS SUMMARY | 2024-07-15 17:36 | XMS_ITS | Encounter Summary ---
Author Organization [facility] Healthcare Address [address] [place] [address] Care Team Providers Care Graphic Specialist Name Role Phone Servando Torre MD Primary Care Provider +1- [phone] Mariela Denton MD Unavailable +1 -[phone] Lexis Barroso OD Unavailable +1- [phone] Encounter Details Date Type Department Care Team (Latest Contact Info) Description 03/30/2024 9:26 AM CDT - 03/30/2024 11:59 PM CDT Hospital Encounter [facility] [address] [place] [address] Mixed diabetic hyperlipidemia associated with [...] on file Legal Sex Female 9:30 AM COMMANDING OFFICER TRAFFIC DIVISION Gender Identity Female 04/05/2022 6:17 PM CDT [...] nightly 01/01/2024 vedolizumab (ENTYVIO) 300 mg recon solnIndications:Wire Mill Rover roberto ulcerative colitis, unspecified complication (HCC) Infuse [...] a day 180 tablet 1 04/01/2024 4 rivastigmine (EXELON) 4.6 mg/[address] [...] Torre MD LAB BLOOD ORDERABLES Final Result [facility] [address] Department [place] [address] * Differential, auto (03/30/2024 9:26 AM CDT) Neutrophil abs 5.4 1.5 - 6.5 K/cumm Imm gran abs 0.1 0.0 - 0.1 K/cumm [facility] Lymphocyte abs 1.8 0.8 - 3.3 K/cumm [facility] Monocyte abs 0.8 0.2 - 0.8 K/cumm [facility] Eosinophil abs 0.3 0.0 - 0.5 K/cumm [facility] Basophil abs 0.1 0.0 - 0.1 K/cumm [facility] Neutrophil pct 64.8 % [facility] Comment: Interpretive Data Percent cell count reference ranges are not reported, since discordance with absolute values may lead to misinterpretation of CBC data. Current Interpretive Data was last revised on 2017. Imm gran pct 0.6 % [facility] Comment: Interpretive Data Percent cell count reference ranges are not reported, since discordance with absolute values may lead to misinterpretation of CBC data. Current Interpretive Data was last revised on 2017. Lymphocyte pct 21.4 % [facility] Comment: Interpretive Data Percent cell count reference ranges are not reported, since discordance with absolute values may lead to misinterpretation of CBC data. Current Interpretive Data was last revised on 2017. Monocyte pct 9.6 % [facility] Comment: Interpretive Data Percent cell count [...] Torre MD LAB BLOOD ORDERABLES Final Result [facility] [address] Department [place] [address] * (ABNORMAL) CBC with auto differential (03/30/2024 9:26 AM CDT) WBC 8.4 3.8 - 9.9 K/cumm Hgb 14.9 11.9 - 15.5 g/dL [facility] Hct 47.6(H) 35.6 - 45.5 % [facility] Plt 308 150 - 400 K/cumm [facility] MPV 9.6 9.1 - 12.3 fL [facility] RBC 5.14 3.90 - 5.20 M/cumm [facility] MCV 92.6 81.3 - 96.4 fL [facility] MCH 29.0 27.1 - 33.3 pg [facility] MCHC 31.3(L) 32.3 - 35.7 g/dL [facility] RDW CV 12.8 11.1 - 14.9 % [facility] RDW SD 43.6 35.7 - 48.1 fL [facility] NRBC abs 0.00 0.00 - 0.01 K/cumm [facility] Blood 03/30/2024 9:26 AM CDT 03/30/2024 4:55 PM CDT us Servando Torre MD LAB BLOOD ORDERABLES Final Result [facility] [address] Department [place] [address] * Comprehensive metabolic panel (03/30/2024 9:26 AM [...] LAB BLOOD ORDERABLES Final Result AILEEN MATTHEW [address] Department [place] [address] * (ABNORMAL) Hemoglobin A1c (03/30/2024 9:26 AM CDT) Pathologist [facility] Hgb A1C 6.8(H) 4.0 - 5.6 % Estimated Average Glucose 148 mg/dL AILE[facility] MATTHEW Comment: The ADA recommends reporting an estimated Average Glucose (eAG) with all Hemoglobin A1c results using the equation derived from a study of 507 normal and diabetic adults. ??Minority populations were underrepresented and children were not included. ?? (Diabetes Care 31:6428-9948, 2008). ??The eAG is not equivalent to a fasting glucose. Blood 03/30/2024 9:26 AM CDT 03/30/2024 4:55 PM CDT Servando Torre MD LAB BLOOD ORDERABLES Final Result Performing Organization Address [facility]/State/[facility] Co de Phone Number AILEEN [address] [address] Department [place] [address] * (ABNORMAL) Lipid panel (03/30/2024 9:26 AM CDT) Pathologist [facility] Cholesterol 196 30 - 199 mg/dL Comment: [...] LAB BLOOD ORDERABLES Final Result AILEEN MATTHEW [address] Department [place] [address] documented in this encounter Visit Diagnoses Diagnosis Mixed diabetic hyperlipidemia associated with type 2 diabetes mellitus (HCC) Hypertension associated with diabetes (HCC) Unspecified essential hypertension documented in this encounter Care Teams Graphic Specialist Relationship Specialty Start Date End Date Servando Torre MD [facility] [address] PCP - General Family Medicine 06/19/22 Mariela Denton MD [address] [facility] [address] [place] [address] Referring Physician Gastroenterology 06/19/22 Lexis Barroso OD [address] [place] [address] Correction Lieutenant 09/19/22 documented as of this encounter
--- OUTSIDE RECORDS SUMMARY | 2024-07-15 17:36 | XMS_ITS | Encounter Summary ---
Author Organization [facility] Address [address] [place] [address] Phone Care Team Providers Care Toll Mechanic Name Role Phone Servando Torre MD Primary Care Provider +1 [phone] Mariela Denton MD Unavailable +1 [phone] Lexis Barroso OD Unavailable +1- [phone] Encounter Details Date Type Department Care Team (Late st Contact Info) Description 05/05/2024 9:30 AM CDT Office Visit [facility] Epilepsy [address] [facility] 6th [place] [address] [place] [address] Adria Burleson MD [address] [facility] [address] [place] [address] Localization-related symptomatic epilepsy and epileptic [...] on file Legal Sex Female 9: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 Her Lamictal was increased to 125 mg [...] /encephalomalacia/gliosis and scattered microhemorrhages and generalized atrophy. 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 -EEG at [facility] on 03/07/2023: This is an abnormal [...] PGY-5 Division of Pediatric & Developmental Neurology [facility] in [place] Seizure precautions including no driving for at [...] Primary documented in this encounter Care Teams Toll Mechanic Relationship Specialty Start Date End Date Servando Torre MD [facility] [address] [address] PCP - General Family Medicine 06/19/22 Mariela Denton MD [address] [place] [address] Referring Physician Gastroenterology 06/19/22 Lexis Barroso OD [address] [place] [address] Medical Biller Coder 09/19/22 documented as of this encounter
--- OUTSIDE RECORDS SUMMARY | 2024-07-15 17:36 | XMS_ITS | Encounter Summary ---
Author Organization [facility] Healthcare Address [address] [place] [address] Care Team Providers Care Hydramatic Specialist Name Role Phone Servando Torre MD Primary Care Provider +1- [phone] Mariela Denton MD Unavailable +1 -[phone] Lexis Barroso OD Unavailable +- [phone] Reason for Visit * Reason Comments Knee [...] Description 05/13/2024 12:00 PM CDT Office Visit [facility] Medical Group Convenient Care at [address] [address] Mara Almendarez NP [address] [place] [address] [address] [place] [address] Fall, initial encounter (Primary Dx); [...] on file Legal Sex Female 9:30 AM CRITICAL CARE TRANSPORT NURSE Gender Identity Female 04/05/2022 6:17 PM CDT [...] meet your needs. Thank you for choosing [facility]! It was my pleasure to see you today, I hope you feel better soon! Mara Almendarez SPORTS MEDICINE MASSEUR * Attachments The following attachments cannot be sent through Care Everywhere. * Knee Pain (AfterCare(R) Instructions(ER/ED)) (Italian) * Head Injury (AfterCare(R) Instructions(ER/ED)) (Italian) documented in this encounter Progress Notes * Mara Almendarez, MARKETING PROGRAMS MANAGER - 05/13/2024 12:00 PM CDT Images from [...] catheter every 8 (eight) weeks Infused at: [facility] ([facility] order in Epic [...] D: ??05/13/2024 4:47 PM T: Report ID: [id number] Reading Location: [id number] Procedure Note Dylan Zuniga MD - 05/13/2024 [...] signed by Dylan CARROLL T: Report ID: [id number] Reading Location: [id number] Mara Almendarez MARKETING PROGRAMS MANAGER IMG XR PROCEDURES Final Re sult documented [...] 05/19/2024 added in this encounter Care Teams Hydramatic Specialist Relationship Specialty Start Date End Date Servando Torre MD [address] [facility] [address] [place] [address] PCP - General Family Medicine 06/19/22 Mariela Denton MD [address] [place] [address] Referring Physician Gastroenterology 06/19/22 Lexis Barroso OD [address] [place] [address] Livestock Commission Agent 09/19/22 documented as of this encounter
--- OUTSIDE RECORDS SUMMARY | 2024-07-15 17:36 | XMS_ITS | Encounter Summary ---
Author Organization [facility] Address [address] [place] [address] Phone Care Team Providers Care Tower Attendant Name Role Phone Servando Torre MD Primary Care Provider +1 [phone] Mariela Denton MD Unavailable + -[phone] Lexis Barroso OD Unavailable +1- [phone] Reason for Visit * Reason Onset Date Comments Med Management (Renewal Entyvio Auth/Order) 03/2024 No Auth Required 04/05/2024 Encounter Details Date Type Department Care Team (Late st Contact Info) Description 04/05/2024 Telephone [facility] Gastroenterology [address] [facility] Medicine 12th [place] [address] [place] [address] Janice Baez LPN Med Management (Renewal Entyvio Auth/Order); No [...] on file Legal Sex Female 9:30 AM BOTTLE WASHER Gender Identity Female 04/05/2022 6:17 PM CDT Sexual Orientation Straight 04/05/2022 6: 17 PM CDT documented as of this encounter Miscellaneous Notes * Telephone Encounter - Janice Baez LPN - 04/06/2024 10:31 AM CDT Below auth info has been faxed to local infusion team at . -------Fax Transmission Report------- To: Recipient at [id number] Subject: AC - Authorization [Secure] Result: The transmission was successful. Explanation: All Pages Ok Pages Sent: 3 Connect Time: 1 minutes, 39 seconds Transmit Time: 04/06/2024 12:03 Transfer Rate: 9600 Status Code: 0000 Retry Count: 0 Job Id: [id number] Unique Id: [id number] Fax Line: 2 Fax Gage Maker: [id number] * Telephone Encounter - Eron Chacha Carolina - 04/06/2024 9:59 AM CDT SPECIALTY DRUG INFUSION AUTHORIZATION Patient: Lisa Allen : 1945 Ordering Physician: ANJANA MARIE #: [id number] DRUG NAME: ENTYVIO DOSE/FREQUENCY: 300MG IVP Q 8 WEEKS CPT/ADMIN CODE(S): J3380, 25219, 39120 DX CODE(S): K51.919 LOCATION: [address] [place] [address] PHONE #[phone], FAX #[phone] TAX ID #[id number], NPI #[id number] Primary Insurance: MCR ID # [id number] Group # Ins Phone # RTDidi, 04/06/2024 [...] Ins Rep Name: MICHAEL Denson Phone #: [phone] Date Called: 04/06/2024 Call ref #: [id number] PCP Referral required? Referral number/visits/valid dates: Is [...] up. -------Fax Transmission Report------- To: Recipient at [id number] Subject: AC - Renewal Entyvio Order [Secure] Result: The transmission was successful. Explanation: All Pages Ok Pages Sent: 3 Connect Time: 1 minutes, 34 seconds Transmit Time: 04/05/2024 10:50 Transfer Rate: 9600 Status Code: 0000 Retry Count: 0 Job Id: [id number] Unique Id: [id number] Fax Line: 3 Fax Gage Maker: [id number] documented in this encounter Plan of Treatment Not on file documented as of this encounter Visit Diagnoses Diagnosis Chronic ulcerative colitis, unspecified complication (HCC)- Primary documented in this encounter Orders Procedures Count Last Ordered Date First Orde red Date ONCBCN OUTPATIENT FACILITY ORDERS 1 024 documented in this encounter Care Teams Tower Attendant Relationship Specialty Start Date End Date Servando Torre MD [address] [address] PCP - General Family Medicine 06/19/22 Mariela Denton MD [address] [facility] [address] [place] [address] Referring Physician Gastroenterology 06/19/22 Lexis Barroso OD [address] [place] [address] Staff Physical Therapy Assistant 09/19/22 documented as of this encounter
--- OUTSIDE RECORDS SUMMARY | 2024-07-15 17:36 | XMS_ITS | Encounter Summary ---
Author Organization [facility] Healthcare Address [address] [place] [address] Care Team Providers Care French Cord Binder Name Role Phone Servando Torre MD Primary Care Provider +1- [phone] Mariela Denton MD Unavailable +1 -[phone] Lexis Barroso OD Unavailable +1- [phone] Encounter Details Date Type Department Care Team (Latest Contact Info) Description 05/13/2024 12:25 PM CDT Ancillary Procedure [facility] Imaging at [address] [address] Fall, initial encounter Social History [...] on file Legal Sex Female 9:30 AM TANBARK LABORER Gender Identity Female 04/05/2022 6:17 PM CDT [...] D: ??05/13/2024 4:47 PM T: Report ID: [id number] Reading Location: ??[id number] Procedure Note Dylan Zuniga MD - 05/13/2024 [...] signed by Dylan CARROLL T: Report ID: [id number] Reading Location: [place] [address] Mara Almendarez COTTON AGENT IMG XR PROCEDURES Final Re sult documented in this encounter Visit Diagnoses Diagnosis Fall, initial encounter documented in this encounter Care Teams French Cord Binder Relationship Specialty Start Date End Date Servando Torre MD [address] [facility] [address] [place] [address] PCP - General Family Medicine 06/19/22 Mariela Denton MD [address] [place] [address] Referring Physician Gastroenterology 06/19/22 Lexis Barroso OD [address] [place] [address] Supervisor Putty And Caluking 09/19/22 documented as of this encounter
--- OUTSIDE RECORDS SUMMARY | 2024-07-15 17:36 | XMS_ITS | Encounter Summary ---
Author Organization [facility] Healthcare Address [address] [place] [address] Care Team Providers Care Cartographic Aide Name Role Phone Servando Torre MD Primary Care Provider Mariela Denton MD Unavailable +1 -[phone] Lexis Barroso OD Unavailable +1- [phone] Reason for Visit * Reason Comments Follow-up 3 month f/u Encounter Details Date Type Department Care Team (Late st Contact Info) Description 04/01/2024 2:00 PM CDT Office Visit [facility] Primary Care at [address] [address] Servando Torre MD [address] [place] [address] [address] [place] [address] Hypertension associated with diabetes (HCC) [...] file Legal Sex Female 9:30 AM FOOD ORDER DELIVERY RUNNER Gender Identity Female 04/05/2022 6:17 PM CDT [...] you have any questions or concerns at [phone]. You may receive a phone call, text, MYCHART message, or e-mail asking about your care today. We would love to hear your feedback on how EXCELLENT your care wastoday! Wishing you better health, always. Dr. Torre * Attachments The following attachments cannot be sent through Care Everywhere. * Meal Planning with Diabetes Exchanges (Cuff Setter Overlock) (Vincentian) documented in this encounter Progress Notes * [...] catheter every 8 (eight) weeks Infused at: [facility] ([facility] order in [facility] under 'Procedures' tab). 1 each 5 acetaminophen [...] 04/09/2024 added in this encounter Care Teams Cartographic Aide Relationship Specialty Start Date End Date Servando Torre MD [address] [address] PCP - General Family Medicine 06/19/22 Mariela Denton MD [address] [place] [address] Referring Physician Gastroenterology 06/19/22 Lexis Barroso OD [address] [place] [address] Legal Executive Assistant 09/19/22 documented as of this encounter
--- OUTSIDE RECORDS SUMMARY | 2024-07-15 17:36 | XMS_ITS | Encounter Summary ---
Author Organization [facility] Healthcare Address [address] [place] [address] Care Team Providers Care Demand Generator Manager Name Role Phone Servando Torre MD Primary Care Provider +1- [phone] Mariela Denton MD Unavailable +1 -[phone] Lexis Barroso OD Unavailable +1- [phone] Encounter Details Date Type Department Care Team (Late st Contact Info) Description 04/27/2024 11:45 AM CDT Lab [facility] Outpatient Lab at [address] [address] Social History Tobacco Use Types [...] on file Legal Sex Female 9:30 AM COAL DRIER OPERATOR Gender Identity Female 04/05/2022 6:17 PM CDT Sexual Orientation Straight 04/05/2022 6: 17 PM CDT documented as of this encounter Plan of Treatment Not on file documented as of this encounter Visit Diagnoses Not on filedocumented in this encounter Care Teams Demand Generator Manager Relationship Specialty Start Date End Date Servando Torre MD [address] [facility] 130 [place] [address] PCP - General Family Medicine 06/19/22 Mariela Denton MD [address] [facility] [facility] [address] [place] [address] Referring Physician Gastroenterology 06/19/22 Lexis Barroso OD [address] [place] [address] Boiler Blower 09/19/22 documented as of this encounter
--- OUTSIDE RECORDS SUMMARY | 2024-07-15 17:36 | XMS_ITS | Encounter Summary ---
Author Organization [facility] Healthcare Address [address] [place] [address] Care Team Providers Care Knife Finisher Name Role Phone Servando Torre MD Primary Care Provider +1- [phone] Mariela Denton MD Unavailable +1 -[phone] Lexis Barroso OD Unavailable +1- [phone] Encounter Details Date Type Department Care Team (Late st Contact Info) Description 03/30/2024 9:15 AM CDT Lab [facility] Outpatient Lab at [address] [address] Anemia (Primary Dx) Social History [...] on file Legal Sex Female 9:30 AM MILKING WORKER Gender Identity Female 04/05/2022 6:17 PM CDT Sexual Orientation Straight 04/05/2022 6: 17 PM CDT documented as of this encounter Plan of Treatment Not on file documented as of this encounter Visit Diagnoses Diagnosis Anemia- Primary Unspecified anemia documented in this encounter Care Teams Knife Finisher Relationship Specialty Start Date End Date Servando Torre MD [address] [address] PCP - General Family Medicine 06/19/22 Mariela Denton MD [address] [place] [address] Referring Physician Gastroenterology 06/19/22 Lexis Barroso OD [address] [place] [address] Commander Internal Affairs 09/19/22 documented as of this encounter
--- OUTSIDE RECORDS SUMMARY | 2024-07-15 17:36 | XMS_ITS | Encounter Summary ---
Author Organization [facility] Healthcare Address [address] [place] [address] Care Team Providers Care Government Property Inspector Name Role Phone Servando Torre MD Primary Care Provider Mariela Denton MD Unavailable +1 -[phone] Lexis Barroso OD Unavailable +1- [phone] Reason for Visit * Reason Onset Date Comments Medical Question/Miscellaneous 04/23/2024 Encounter Details Date Type Department Care Team (Late st Contact Info) Description 04/23/2024 Telephone [facility] Primary Care at [address] [address] Servando Torre MD [address] [place] [address] [address] [place] [address] Medical Question/Miscellaneous Social History Tobacco [...] file Legal Sex Female 9:30 AM TILE CONDUIT LAYER Gender Identity Female 04/05/2022 6:17 PM CDT [...] on filedocumented in this encounter Care Teams Government Property Inspector Relationship Specialty Start Date End Date Servando Torre MD [address] [address] PCP - General Family Medicine 06/19/22 Mariela Denton MD [facility] [address] [place] [address] Referring Physician Gastroenterology 06/19/22 Lexis Barroso OD [address] [place] [address] Manager Community 09/19/22 documented as of this encounter
--- OUTSIDE RECORDS SUMMARY | 2024-07-15 17:37 | XMS_ITS | Encounter Summary ---
Author Organization [facility] Healthcare Address [address] [place] [address] Care Team Providers Care Double Backer Name Role Phone Servando Torre MD Primary Care Provider +1- [phone] Mariela Denton MD Unavailable +1 -[phone] Lexis Barroso OD Unavailable +1- [phone] Reason for Visit * Reason Comments Health Maintenance Encounter Details Date Type Department Care Team (Late st Contact Info) Description 09/30/2023 1:00 PM CORRECTIONAL SUPPLY SUPERVISOR Office Visit [facility] Medical Group Primary Care at [address] [address] Servando Torre MD [address] [place] [address] [address] [place] [address] Hypertension associated with diabetes (HCC) [...] on file Legal Sex Female 9:30 AM CORRECTIONAL SUPPLY SUPERVISOR Gender Identity Female 04/05/2022 6:17 PM CDT Sexual Orientation Straight 04/05/2022 6: 17 PM CDT documented as of this encounter Last Filed Vital Signs Vital Sign Reading Time Taken Comments Blood Pressure 122/80 09/30/2023 1:29 PM CORRECTIONAL SUPPLY SUPERVISOR Pulse 69 09/30/2023 1:29 PM CORRECTIONAL SUPPLY SUPERVISOR Temperature 36.5 ??C (97.7 ??F) 09/30/2023 1:29 PM CS T Respiratory Rate 18 09/30/2023 1:29 PM CORRECTIONAL SUPPLY SUPERVISOR Oxygen Saturation 97% 09/30/2023 1:29 PM CORRECTIONAL SUPPLY SUPERVISOR Inhaled Oxygen Concentration - - Weight 66.7 kg (147 lb) 09/30/2023 1:29 PM CORRECTIONAL SUPPLY SUPERVISOR Height 157.5 cm (5' 2 ) 09/30/2023 1:29 PM CORRECTIONAL SUPPLY SUPERVISOR Body Mass Index 26.89 09/30/2023 1:29 PM CORRECTIONAL SUPPLY SUPERVISOR documented in this encounter Patient Instructions * Patient Instructions* Servando Torre MD - 09/30/2023 1:00 PM CORRECTIONAL SUPPLY SUPERVISOR Awaiting labs Continuing current regimen BP well controlled Thanks for coming in today! My medical assistants and I are thankful you have trusted us with your care, and hope that you received EXCELLENT care today! Please do not hesitate to call if you have any questions or concerns at [phone]. You may receive a phone call, text, MYCHART message, or e-mail asking about your care today. We would love to hear your feedback on how EXCELLENT your care wastoday! Wishing you better health, always. Dr. Torre ECTIONAL SUPPLY SUPERVISOR documented in this encounter Progress Notes * [...] catheter every 8 (eight) weeks Infused at: [facility] ([facility] order in Epic [...] without complication (CMS/HCC) (HCC) Comments: in remission ECTIONAL SUPPLY SUPERVISOR documented in this encounter Plan of Treatment [...] documented as of this encounter Care Teams Double Backer Relationship Specialty Start Date End Date Servando Torre MD [address] [address] PCP - General Family Medicine 06/19/22 Mariela Denton MD [address] [place] [address] Referring Physician Gastroenterology 06/19/22 Lexis Barroso OD [address] [place] [address] Three Knife Trimmer 09/19/22 documented as of this encounter
--- OUTSIDE RECORDS SUMMARY | 2024-07-15 17:37 | XMS_ITS | Encounter Summary ---
Author Organization [facility] Address [address] [place] [address] Phone Care Team Providers Care Clinical Nurse Reviewer Name Role Phone Servando Torre MD Primary Care Provider +1 [phone] Mariela Denton MD Unavailable +1 -[phone] Lexis Barroso OD Unavailable +1- [phone] Encounter Details Date Type Department Care Team [...] file Legal Sex Female 9:30 AM DRUG INSPECTOR Gender Identity Female 04/05/2022 6:17 PM [...] on filedocumented in this encounter Care Teams Clinical Nurse Reviewer Relationship Specialty Start Date End Date Servando Torre MD [facility] [address] PCP - General Family Medicine 06/19/22 Mariela Denton MD [facility] [address] [place] [address] Referring Physician Gastroenterology 06/19/22 Lexis Barroso OD [address] [place] [address] Store Loss Prevention Manager 09/19/22 documented as of this encounter
--- OUTSIDE RECORDS SUMMARY | 2024-07-15 17:37 | XMS_ITS | Encounter Summary ---
Author Organization [facility] Healthcare Address [address] [place] [address] Care Team Providers Care Joiner Apprentice Name Role Phone Servando Torre MD Primary Care Provider +1- [phone] Mariela Denton MD Unavailable +1 -[phone] Lexis Barroso OD Unavailable +1- [phone] Encounter Details Date Type Department Care Team (Late st Contact Info) Description 09/30/2023 2:00 PM EARLY INTERVENTIONIST Lab [facility] Medical Group Outpatient Lab at [address] [address] Diabetes mellitus (HCC) (Primary Dx); [...] on file Legal Sex Female 9:30 AM EARLY INTERVENTIONIST Gender Identity Female 04/05/2022 6:17 PM CDT [...] (HCC) documented in this encounter Care Teams Joiner Apprentice Relationship Specialty Start Date End Date Servando Torre MD [address] [address] PCP - General Family Medicine 06/19/22 Mariela Denton MD [address] [place] [address] Referring Physician Gastroenterology 06/19/22 Lexis Barroso OD [address] [place] [address] Senior Java Engineer 09/19/22 documented as of this encounter
--- OUTSIDE RECORDS SUMMARY | 2024-07-15 17:37 | XMS_ITS | Encounter Summary ---
Author Organization [facility] Healthcare Address [address] [place] [address] Care Team Providers Care Egg Setter Name Role Phone Servando Torre MD Primary Care Provider Mariela Denton MD Unavailable +1 -[phone] Lexis Barroso OD Unavailable +1- [phone] Reason for Visit * Reason Onset Date Comments Medical Records Request 02/18/2024 Encounter Details Date Type Department Care Team (Late st Contact Info) Description 02/18/2024 Telephone [facility] Primary Care at [address] [address] Servando Torre MD [address] [place] [address] [address] [place] [address] Medical Records Request Social History [...] file Legal Sex Female 9:30 AM DIRECTOR EXECUTIVE COMMUNICATIONS Gender Identity Female 04/05/2022 6:17 PM CDT Sexual Orientation Straight 04/05/2022 6: 17 PM CDT documented as of this encounter Miscellaneous Notes * Telephone Encounter - Lexis Jhaveri MA - 02/26/2024 11:32 AM CDT Records upfront for cotton picker. LMOM letting pt's daughter know * Telephone [...] Needed: as soon as possible Delivery Method: sample supervisor at practice Additional Comments: Pt daughter is [...] on filedocumented in this encounter Care Teams Egg Setter Relationship Specialty Start Date End Date Servando Torre MD [address] [address] PCP - General Family Medicine 06/19/22 Mariela Denton MD [address] [place] [address] Referring Physician Gastroenterology 06/19/22 Lexis Barroso OD [address] [place] [address] Curtain Framer 09/19/22 documented as of this encounter
--- OUTSIDE RECORDS SUMMARY | 2024-07-15 17:37 | XMS_ITS | Encounter Summary ---
Author Organization [facility] Healthcare Address [address] [place] [address] Care Team Providers Care Scorer Helper Name Role Phone Servando Torre MD Primary Care Provider +1- [phone] Mariela Denton MD Unavailable +1 -[phone] Lexis Barroso OD Unavailable +1- [phone] Encounter Details Date Type Department Care Team (Late st Contact Info) Description 08/22/2023 Telephone [facility] Medical Group Primary Care at [address] [address] Regina Loo MA Social History [...] on file Legal Sex Female 9:30 AM CLAIMS ADMINISTRATOR Gender Identity Female 04/05/2022 6:17 PM [...] Regina Loo MA - 08/22/2023 12:50 PM CLAIMS ADMINISTRATOR Refill request from [facility] for Metoprolol Tartrate 50mg tab Last refill 02/20/23 Last ov 08/07/23 MS ADMINISTRATOR documented in this encounter Plan of [...] documented as of this encounter Care Teams Scorer Helper Relationship Specialty Start Date End Date Servando Torre MD [facility] [address] PCP - General Family Medicine 06/19/22 Mariela Denton MD [address] [place] [address] Referring Physician Gastroenterology 06/19/22 Lexis Barroso OD [address] [place] [address] Automobile Body Repair Supervisor 09/19/22 documented as of this encounter
--- OUTSIDE RECORDS SUMMARY | 2024-07-15 17:37 | XMS_ITS | Encounter Summary ---
Author Organization [facility] Healthcare Address [address] [place] [address] Care Team Providers Care Remarketing Manager Name Role Phone Servando Torre MD Primary Care Provider +1- [phone] Mariela Denton MD Unavailable +1 -[phone] Lexis Barroso OD Unavailable +1- [phone] Reason for Visit * Reason Onset Date Comments Medication Request 08/29/2023 Encounter Details Date Type Department Care Team (Late st Contact Info) Description 08/29/2023 Telephone [facility] Medical Group Primary Care at [address] [address] Servando Torre MD [address] [place] [address] [address] [place] [address] Medication Request Social History Tobacco [...] on file Legal Sex Female 9:30 AM TRANSFILL TECHNICIAN Gender Identity Female 04/05/2022 6:17 PM [...] Does message need to be routed? No SFILL TECHNICIAN documented in this encounter Plan of Treatment Not on file documented as of this encounter Visit Diagnoses Not on filedocumented in this encounter Care Teams Remarketing Manager Relationship Specialty Start Date End Date Servando Torre MD [address] [address] PCP - General Family Medicine 06/19/22 Mariela Denton MD [address] [place] [address] Referring Physician Gastroenterology 06/19/22 Lexis Barroso OD [address] [place] [address] Flight Crew Time Clerk 09/19/22 documented as of this encounter
--- OUTSIDE RECORDS SUMMARY | 2024-07-15 17:37 | XMS_ITS | Encounter Summary ---
Author Organization [facility] Healthcare Address [address] [place] [address] Care Team Providers Care Flat Bed Knitter Name Role Phone Servando Torre MD Primary Care Provider +1- [phone] Mariela Denton MD Unavailable +1 -[phone] Lexis Barroso OD Unavailable +1- [phone] Reason for Referral * Consultation (Routine) - Closed Specialty Diagnoses / Procedures Referred By Contclemencia t Referred To Contact Orthopedic Surgery Diagnoses Chronic pain of both knees Olga Hernandez NP Phone: tel: fax: Michael Gonzalez PA [address] [place] [address] [address] Phone: tel: fax: Referral ID Status Reason Start Date Expiration Date V isits Requested Visits Authorized [id number] Closed Specialty Services Required 08/07/2023 09/05/2024 1 1 Question Answer Please select the performing region: [facility] Medical Group [[id number]] Please select the performing department: [facility] [[id number]] To provider: MICHAEL GONZALEZ [[id number]] # of visits: 1 EPOINT WEB DEVELOPER Reason for Visit * Reason Comments Cough 10 days, chest pain, disturbing sleep Nasal Congestion Encounter Details Date Type Department Care Team (Late st Contact Info) Description 08/07/2023 3:30 PM SHAREPOINT WEB DEVELOPER Office Visit [facility] Medical Group Primary Care at [address] [address] Olga Hernandez NP [address] [facility] [address] [place] [address] Chronic pain of both knees [...] on file Legal Sex Female 9:30 AM SHAREPOINT WEB DEVELOPER Gender Identity Female 04/05/2022 6:17 PM CDT Sexual Orientation Straight 04/05/2022 6: 17 PM CDT documented as of this encounter Last Filed Vital Signs Vital Sign Reading Time Taken Comments Blood Pressure 104/58 08/07/2023 3:32 PM SHAREPOINT WEB DEVELOPER Pulse 64 08/07/2023 3:32 PM SHAREPOINT WEB DEVELOPER Temperature 36.7 ??C (98.1 ??F) 08/07/2023 3:32 PM CS T Respiratory Rate - - Oxygen Saturation 98% 08/07/2023 3:32 PM SHAREPOINT WEB DEVELOPER Inhaled Oxygen Concentration - - Weight 67.5 kg (148 lb 14.4 oz) 08/07/2023 3:32 PM SHAREPOINT WEB DEVELOPER Height 157.5 cm (5' 2 ) 08/07/2023 3:32 PM SHAREPOINT WEB DEVELOPER Body Mass Index 27.23 08/07/2023 3:32 PM SHAREPOINT WEB DEVELOPER documented in this encounter Ordered Prescriptions Prescription [...] this encounter Progress Notes * Olga Hernandez, INTEGRATION SOFTWARE ENGINEER - 08/07/2023 3:30 PM CST Images from [...] symptoms aren't resolving. Doxycycline Olga Hernandez NP EPOINT WEB DEVELOPER documented in this encounter Plan of Treatment Scheduled Referrals Name Type Priority Associated Diagnoses Order Schedule Ambulatory referral to Orthopedic Surgery Outpatient Referral Routine Chronic pain of both knees Expected: 08/21/2023 (Approximate), Expires: 08/07/2024 documented as of this encounter Visit Diagnoses Diagnosis Chronic pain of both knees- Primary Acute non-recurrent frontal sinusitis documented in this encounter Care Teams Flat Bed Knitter Relationship Specialty Start Date End Date Servando Torre MD [address] [facility] [address] [place] [address] PCP - General Family Medicine 06/19/22 Mariela Denton MD [address] [place] [address] Referring Physician Gastroenterology 06/19/22 Lexis Barroso OD [address] [place] [address] Fall Intern 09/19/22 documented as of this encounter
--- OUTSIDE RECORDS SUMMARY | 2024-07-15 17:37 | XMS_ITS | Encounter Summary ---
Author Organization [facility] Healthcare Address [address] [place] [address] Care Team Providers Care Recruitment Manager Name Role Phone Servando Torre MD Primary Care Provider +1- [phone] Mariela Denton MD Unavailable +1 -[phone] Lexis Barroso OD Unavailable +1- [phone] Reason for Referral * Procedure (Routine) - Authorized Specialty Diagnoses / Procedures Referred By Contac t Referred To Contact Diagnoses Primary osteoarthritis of both knees Procedures Large Joint (Hip, Knee, Shoulder) Injection: bilateral knee Riri Gonzalez PA [address] [facility] [address], [place] [address] Phone: tel: fax: [facility] Medical Group Referral ID Status Reason Start Date Expiration Date V isits Requested Visits Authorized [id number] Authorized 10/21/2023 11/19/2024 1 1 Reason for Visit * Reason Comments Pain Pain Encounter Details Date Type Department Care Team (Late st Contact Info) Description 10/07/2023 9:00 AM CDT Office Visit [facility] Medical Group Orthopedic and Sports Medicine [address] [place] [address] Riri Gonzalez PA [address] [facility] [address] [place] [address] Primary osteoarthritis of both knees (Primary Dx) [...] file Legal Sex Female 9:30 AM SUPERVISOR BEATER ROOM Gender Identity Female 04/05/2022 6:17 PM CDT [...] Procedure Name Priority Date/Time Associated Diagnosis Comments MD ARTHROCENTESIS ASPIR&/INJ MAJOR JT/BURSA W/O US Routine 10/07/2023 9:00 AM CDT Primary osteoarthritis of both knees documented in this encounter Results * MD ARTHROCENTESIS ASPIR&/INJ MAJOR JT/BURSA W/O US (10/07/2023 [...] mg documented in this encounter Care Teams Recruitment Manager Relationship Specialty Start Date End Date Servando Torre MD [address] [facility] [address] [place] [address] PCP - General Family Medicine 06/19/[address] [facility] [address] [facility] [address] [place] [address] Referring Physician Gastroenterology 06/19/22 Lexis Barroso OD [address] [place] [address] Treating Inspector 09/19/22 documented as of this encounter
--- OUTSIDE RECORDS SUMMARY | 2024-07-15 17:37 | XMS_ITS | Encounter Summary ---
Author Organization [facility] Healthcare Address [address] [place] [address] Care Team Providers Care Deck Lid Fitter Name Role Phone Servando Torre MD Primary Care Provider +1- [phone] Mariela Denton MD Unavailable +1 -[phone] Lexis Barroso OD Unavailable +1- [phone] Encounter Details Date Type Department Care Team (Late st Contact Info) Description 10/02/2023 Telephone [facility] Medical Group Primary Care at [address] [address] Regina Loo MA Social History [...] on file Legal Sex Female 9:30 AM TYPEWRITERS FUNCTIONAL TESTER Gender Identity Female 04/05/2022 6:17 PM CDT Sexual Orientation Straight 04/05/2022 6: 17 PM CDT documented as of this encounter Miscellaneous Notes * Telephone Encounter - Regina Loo MA - 10/02/2023 10:09 AM TYPEWRITERS FUNCTIONAL TESTER Called pt daughter Aby, left message to call the office or view results and Dr Torre's recommendations in my chart WRITERS FUNCTIONAL TESTER * Telephone Encounter - Regina Loo MA - 10/02/2023 10:09 AM TYPEWRITERS FUNCTIONAL TESTER ----- Message from Servando Torre MD sent at 10/01/2023 1:18 PM TYPEWRITERS FUNCTIONAL TESTER ----- Please relay: I will have Lisa hold the calcium supplement for now, continue vitamin-D though. Calcium was a little high. Everything else looked pretty good. WRITERS FUNCTIONAL TESTER documented in this encounter Plan of Treatment Not on file documented as of this encounter Visit Diagnoses Not on filedocumented in this encounter Care Teams Deck Lid Fitter Relationship Specialty Start Date End Date Servando Torre MD [facility] [address] PCP - General Family Medicine 06/19/22 Mariela Denton MD [address] [place] [address] Referring Physician Gastroenterology 06/19/22 Lexis Barroso OD [address] [place] [address] Oyster Farmer 09/19/22 documented as of this encounter
--- OUTSIDE RECORDS SUMMARY | 2024-07-15 17:37 | XMS_ITS | Encounter Summary ---
Author Organization [facility] Healthcare Address [address] [place] [address] Care Team Providers Care Contracting Analyst Name Role Phone Servando Torre MD Primary Care Provider +1- [phone] Mariela Denton MD Unavailable +1 -[phone] Lexis Barroso OD Unavailable +1- [phone] Reason for Visit * Reason Comments Follow-up Event monitor Syncope Bradycardia Encounter Details Date Type Department Care Team (Latest Contact Info) Description 09/19/2023 11:30 AM CONSTRUCTION IRONWORKER HELPER Office Visit [facility] Medical Group Cardiology at [address] [place] [phone] Mesfin Rosenthal MD [address] [facility] [address] [place] [address] Hypertension associated with diabetes (HCC) [...] on file Legal Sex Female 9:30 AM CONSTRUCTION IRONWORKER HELPER Gender Identity Female 04/05/2022 6:17 PM CDT Sexual Orientation Straight 04/05/2022 6: 17 PM CDT documented as of this encounter Last Filed Vital Signs Vital Sign Reading Time Taken Comments Blood Pressure 114/60 09/19/2023 11:33 AM CONSTRUCTION IRONWORKER HELPER Pulse 62 09/19/2023 11:33 AM CONSTRUCTION IRONWORKER HELPER Temperature - - Respiratory Rate - - Oxygen Saturation 96% 09/19/2023 11:33 AM CONSTRUCTION IRONWORKER HELPER Inhaled Oxygen Concentration - - Weight 66.8 kg (147 lb 4.8 oz) 09/19/2023 11:33 AM CONSTRUCTION IRONWORKER HELPER Height 157.5 cm (5' 2 ) 09/19/2023 11:33 AM CONSTRUCTION IRONWORKER HELPER Body Mass Index 26.94 09/19/2023 11:33 AM CONSTRUCTION IRONWORKER HELPER documented in this encounter Progress Notes * [...] seizure disorder which is a likely contributor. traffic monitor specialist asdiscussed at length without significant tachy or [...] 06/27/23 Initial visit: On 01/30/23 while in [place] during family reunion had a seizure at [address] ft elevation dx with suspected seizure in [place]. Brain MRI some spot noted unclear etiology [...] spells like initiallynoted. She had Echo in [place] and at [place]. No mention or issues of sig arrhythmias [...] capsule OneTouch Delica Plus Lancet 33 gauge [facility] OneTouch Ultra Test strip pantoprazole DR (PROTONIX) [...] consistent with small-vessel ischemic disease. 08/01/23 AMBULATORY INTERNAL COMBUSTION ENGINE INSPECTOR REPORT Type of monitor : 30 day surveillance system monitor Date of the study/Enrollment period: June [...] medical record, and bloodwork/lipids. Dania Rosenthal MD, [facility] This note is dictated and transcribed using Yabbly Direct Software. Financial Adviser variancesmay occur. Despite proofreading, typographical errors may occur. TRUCTION IRONWORKER HELPER documented in this encounter Plan of Treatment Not on file documented as of this encounter Visit Diagnoses Diagnosis Hypertension associated with diabetes (HCC)- Primary Unspecified essential hypertension Mixed diabetic hyperlipidemia associated with type 2 diabetes mellitus (HCC) Syncope, unspecified syncope type Bradycardia Other specified cardiac dysrhythmias At risk for falls Personal history of fall documented in this encounter Care Teams Contracting Analyst Relationship Specialty Start Date End Date Servando Torre MD [facility] [address] PCP - General Family Medicine 06/19/22 Mariela Denton MD [address] [place] [address] Referring Physician Gastroenterology 06/19/22 Lexis Barroso OD [address] [place] [address] Rotary Cutter 09/19/22 documented as of this encounter
--- OUTSIDE RECORDS SUMMARY | 2024-07-15 17:37 | XMS_ITS | Encounter Summary ---
Author Organization [facility] Address [address] [place] [address] Phone Care Team Providers Care Rehabilitation Director Name Role Phone Servando Torre MD Primary Care Provider +1- [phone] Mariela Denton MD Unavailable +1 -[phone] Lexis Barroso OD Unavailable +1- [phone] Encounter Details Date Type Department Care Team (Late st Contact Info) Description 10/29/2023 1:00 PM CDT Office Visit [facility] Gastroenterology [address] [facility] 12th [place] [address] [place] [address] Josué Cook MD [address] [facility] [address] [address] [place], [place] [id number] Ulcerative colitis with complication, unspecified location (HCC) [...] file Legal Sex Female 9:30 AM MOLD MAKER APPRENTICE Gender Identity Female 04/05/2022 6:17 PM [...] up in April 2024 Josué Cook MD Clinical Biochemistgas pumper Department of Gastroenterology [facility] [...] documented as of this encounter Care Teams Rehabilitation Director Relationship Specialty Start Date End Date Servando Torre MD [address] [address] PCP - General Family Medicine 06/19/22 Mariela Denton MD [address] [place] [address] Referring Physician Gastroenterology 06/19/22 Lexis Barroso OD [address] [place] [address] Twill Cutter 09/19/22 documented as of this encounter
--- OUTSIDE RECORDS SUMMARY | 2024-07-15 17:37 | XMS_ITS | Encounter Summary ---
Author Organization [facility] Healthcare Address [address] [place] [address] Care Team Providers Care Him Analyst Name Role Phone Servando Torre MD Primary Care Provider Mariela Denton MD Unavailable +1 -[phone] Lexis Barroso OD Unavailable +1- [phone] Reason for Visit * Reason Onset Date Comments Medical Question/Miscellaneous 03/30/2024 Encounter Details Date Type Department Care Team (Late st Contact Info) Description 03/30/2024 Telephone [facility] Medical Group Primary Care at [address] [address] Servando Torre MD [address] [place] [address] [address] [place] [address] Medical Question/Miscellaneous Social History Tobacco [...] on file Legal Sex Female 9:30 AM FLOATING DERRICK OPERATOR Gender Identity Female 04/05/2022 6:17 PM [...] on filedocumented in this encounter Care Teams Him Analyst Relationship Specialty Start Date End Date Servando Torre MD [facility] [address] [address] PCP - General Family Medicine 06/19/22 Mariela Denton MD [address] [place] [address] Referring Physician Gastroenterology 06/19/22 Lexis Barroso OD [address] [place] [address] Septic Tank Servicer 09/19/22 documented as of this encounter
--- OUTSIDE RECORDS SUMMARY | 2024-07-15 17:37 | XMS_ITS | Encounter Summary ---
Author Organization [facility] Healthcare Address [address] [place] [address] Care Team Providers Care Congregational Care Pastor Name Role Phone Servando Torre MD Primary Care Provider Mariela Denton MD Unavailable +1 -[phone] Lexis Barroso OD Unavailable +1- [phone] Reason for Visit * Reason Onset Date Comments Medical Records Request 07/31/2023 Encounter Details Date Type Department Care Team (Late st Contact Info) Description 07/31/2023 Telephone [facility] Medical Group Primary Care at [address] [address] Servando Torre MD [address] [place] [address] [address] [place] [address] Medical Records Request Social History [...] on file Legal Sex Female 9:30 AM STOCK CHASER Gender Identity Female 04/05/2022 6:17 PM CDT Sexual Orientation Straight 04/05/2022 6: 17 PM CDT documented as of this encounter Miscellaneous Notes * Telephone Encounter - Regina Toscano MA - 07/31/2023 12:59 PM STOCK CHASER Office notes have been faxed K CHASER * Telephone Encounter - Zenaida Bond - 07/31/2023 11:21 AM CST Medical Records Request Request Type: Records Request Practice Will Complete What records are being requested:last 2 most recent Office Visit notes Who will the records be sent to (if being sent to another doctor, list the doctor's name and specialty)? Yosef at [employer] Date Needed: SHIRA Delivery Method: Fax Fax number to use for return of records: [phone] Attn. Nursing Additional Comments/Concerns: None Does the message need to be routed? Yes-Action Needed K CHASER documented in this encounter Plan of Treatment Not on file documented as of this encounter Visit Diagnoses Not on filedocumented in this encounter Care Teams Congregational Care Pastor Relationship Specialty Start Date End Date Servando Torre MD [address] [address] PCP - General Family Medicine 06/19/22 Mariela Denton MD [address] [place] [address] Referring Physician Gastroenterology 06/19/22 Lexis Barroso OD [address] [place] [address] Coordinator Of Evaluation 09/19/22 documented as of this encounter
--- OUTSIDE RECORDS SUMMARY | 2024-07-15 17:37 | XMS_ITS | Encounter Summary ---
Author Organization [facility] Healthcare Address [address] [place] [address] Care Team Providers Care Supervisor Calibration Name Role Phone Servando Torre MD Primary Care Provider +1- [phone] Mareila Denton MD Unavailable +1 -[phone] Lexis Barroso OD Unavailable +1- [phone] Encounter Details Date Type Department Care Team (Latest Contact Info) Description 08/28/2023 11:00 AM DIRECTOR TRAFFIC AND PLANNING Ancillary Procedure [facility] Medical Group Imaging at [address] [address] Chronic pain of both knees [...] file Legal Sex Female 9:30 AM DIRECTOR TRAFFIC AND PLANNING Gender Identity Female 04/05/2022 6:17 PM CDT Sexual Orientation Straight 04/05/2022 6: 17 PM CDT documented as of this encounter Plan of Treatment Not on file documented as of this encounter Procedures Procedure Name Priority Date/Time Associated Diagnosis Comments XR KNEE BILATERAL 4 OR MORE VIEWS Schedule Routine, Read Routine (OP Routine) 08/28/2023 11:01 AM DIRECTOR TRAFFIC AND PLANNING Chronic pain of both knees documented in this encounter Results * XR Knee Bilateral 4 or More Views (08/28/2023 11:01 AM DIRECTOR TRAFFIC AND PLANNING) Anatomical Region Laterality Modality Lower Extremities, Knee Digital Radiography Narrative 08/28/2023 1:05 PM DIRECTOR TRAFFIC AND PLANNING Weightbearing views of the bilateral knee are [...] knees documented in this encounter Care Teams Supervisor Calibration Relationship Specialty Start Date End Date Servando Torre MD [address] [place] [address] [place] [address] PCP - General Family Medicine 06/19/22 Mariela eDnton MD [address] [place] [address] Referring Physician Gastroenterology 06/19/22 Lexis Braroso OD [address] [place], [place] [address] Outside Dealer Sales Representative 09/19/22 documented as of this encounter
--- OUTSIDE RECORDS SUMMARY | 2024-07-15 17:37 | XMS_ITS | Encounter Summary ---
Author Organization [facility] Healthcare Address [address] [place] [address] Care Team Providers Care Horse Racing Manager Name Role Phone Servando Torre MD Primary Care Provider +1- [phone] Mariela Denton MD Unavailable +1 -[phone] Lexis Barroso OD Unavailable +1- [phone] Reason for Visit * Diagnostic Imaging (Routine) - Closed Specialty Diagnoses / Procedures Referred By Contclemencia t Referred To Contact Diagnoses Chronic pain of both knees Procedures XR Pelvis 1 or 2 Views Riri Gonzalez PA [address] [place] [address] [address] [place] [address] Phone: tel: fax: [facility] Medical Group Referral ID Status Reason Start Date Expiration Date Visits Re quested Visits Authorized [id number] Closed 08/28/2023 09/26/2024 1 1 Encounter Details Date Type Department Care Team (Latest Contact Info) Description 08/28/2023 10:55 AM LOG ROLLER Ancillary Procedure [facility] Medical Group Imaging at [address] [address] Chronic pain of both knees [...] file Legal Sex Female 9:30 AM LOG ROLLER Gender Identity Female 04/05/2022 6:17 PM CDT Sexual Orientation Straight 04/05/2022 6: 17 PM CDT documented as of this encounter Plan of Treatment Not on file documented as of this encounter Procedures Procedure Name Priority Date/Time Associated Diagnosis Comments XR PELVIS 1 OR 2 VIEWS Schedule Routine, Read Routine (OP Routine) 08/28/2023 11:01 AM LOG ROLLER Chronic pain of both knees documented in this encounter Results * XR Pelvis 1 or 2 Views (08/28/2023 11:01 AM LOG ROLLER) Anatomical Region Laterality Modality Body, Pelvis N/A Digital Radiogra phy Narrative 08/28/2023 1:04 PM LOG ROLLER Radiographs of the pelvis reviewed interpreted. ??No [...] knees documented in this encounter Care Teams Horse Racing Manager Relationship Specialty Start Date End Date Servando Torre MD [address] [facility] [address] [place] [address] PCP - General Family Medicine 06/19/22 Mariela Denton MD [address] [place] [address] Referring Physician Gastroenterology 06/19/22 Lexis Barroso OD [address] [place] [address] Passenger Service Supervisor 09/19/22 documented as of this encounter
--- OUTSIDE RECORDS SUMMARY | 2024-07-15 17:37 | XMS_ITS | Encounter Summary ---
Author Organization [facility] Address [address] [place] [address] Phone Care Team Providers Care Liner Replacer Name Role Phone Servando Torre MD Primary Care Provider +1 [phone] Mariela Denton MD Unavailable +1 -[phone] Lexis Barroso OD Unavailable +1- [phone] Encounter Details Date Type Department Care Team (Late st Contact Info) Description 01/12/2024 4:30 PM CDT Office Visit [facility] Epilepsy [address] 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 -EEG at [facility] on 03/07/2023: This is an abnormal awake [...] fr ontotemporal epileptiform discharges and slowing. Cedric al'ed due to agitations and sleepiness, tolerating LTG [...] documented as of this encounter Care Teams Liner Replacer Relationship Specialty Start Date End Date Servando Torre MD [address] [facility] [address] [place] [address] PCP - General Family Medicine 06/19/22 Mariela Denton MD [address] [facility] [address] [place] [address] Referring Physician Gastroenterology 06/19/22 Lexis Barroso OD [address] [place] [address] Controls Design Engineer 09/19/22 documented as of this encounter
--- OUTSIDE RECORDS SUMMARY | 2024-07-15 17:37 | XMS_ITS | Encounter Summary ---
Author Organization [facility] Healthcare Address [address] [place] [address] Care Team Providers Care Broaching Machine Set Up Operator Name Role Phone Servando Torre MD Primary Care Provider Mariela Denton MD Unavailable +1 -[phone] Lexis Barroso OD Unavailable +1- [phone] Encounter Details Date Type Department Care Team (Late st Contact Info) Description 02/18/2024 Telephone [facility] Medical Group Primary Care at [address] [address] Servando Torre MD [address] [place] [address] [address] [place] [address] Social History Tobacco Use Types [...] on file Legal Sex Female 9:30 AM PATTERN GATER Gender Identity Female 04/05/2022 6:17 PM CDT Sexual Orientation Straight 04/05/2022 6: 17 PM CDT documented as of this encounter Miscellaneous Notes * Telephone Encounter - Shelia Cobb - 02/18/2024 1:12 PM CDT Opened message in error documented in this encounter Plan of Treatment Not on file documented as of this encounter Visit Diagnoses Not on filedocumented in this encounter Care Teams Broaching Machine Set Up Operator Relationship Specialty Start Date End Date Servando Torre MD [facility] [address] [address] PCP - General Family Medicine 06/19/22 Mariela Denton MD [address] [place] [address] Referring Physician Gastroenterology 06/19/22 Lexis Barroso OD [address] [place] [address] Rocket Motor Tester 09/19/22 documented as of this encounter
--- OUTSIDE RECORDS SUMMARY | 2024-07-15 17:37 | XMS_ITS | Encounter Summary ---
Author Organization [facility] Healthcare Address [address] [place] [address] Care Team Providers Care Archivist Economic History Name Role Phone Servando Torre MD Primary Care Provider Mariela Denton MD Unavailable +1 -[phone] Lexis Barroso OD Unavailable +1- [phone] Reason for Visit * Reason Onset Date Comments Recommendation Request 01/20/2024 Encounter Details Date Type Department Care Team (Late st Contact Info) Description 01/20/[address] [facility] Primary Care at [address] [address] Servando Torre MD [address] [place] [address] [address] [place] [address] Recommendation Request Social History Tobacco [...] file Legal Sex Female 9:30 AM SENIOR ENERGY MARKET COORDINATOR Gender Identity Female 04/05/2022 6:17 PM [...] 3:07 PM CDT Medical Question/Miscellaneous Caller???s Concern: [facility] does not deal with cysts in the knee. Patient will have to go to Ortho. Does message need to be routed? Yes-Action Needed documented in this encounter Plan of Treatment Not on file documented as of this encounter Visit Diagnoses Not on filedocumented in this encounter Care Teams Archivist Economic History Relationship Specialty Start Date End Date Servando Torre MD [address] [address] PCP - General Family Medicine 06/19/22 Mariela Denton MD [address] [place] [address] Referring Physician Gastroenterology 06/19/22 Lexis Barroso OD [address] [place] [address] Assistant Secretary 09/19/22 documented as of this encounter
--- OUTSIDE RECORDS SUMMARY | 2024-07-15 17:37 | XMS_ITS | Encounter Summary ---
Author Organization [facility] Healthcare Address [address] [place] [address] Care Team Providers Care Charge Accounts Audit Clerk Name Role Phone Srevando Torre MD Primary Care Provider +1- [phone] Mariela Denton MD Unavailable +1 -[phone] Lexis Barroso OD Unavailable +1- [phone] Reason for Referral * Consultation (Routine) - Closed Specialty Diagnoses / Procedures Referred By Contclemencia t Referred To Contact General Surgery Diagnoses Cyst of anterior horn of lateral meniscus of right knee Olga Hernandez NP Phone: tel: fax: Marcell Brown MD [address] [place] [address] [address] Phone: tel: fax: Referral ID Status Reason Start Date Expiration Date V isits Requested Visits Authorized [id number] Closed Specialty Services Required 01/19/2024 02/17/2025 1 1 Question Answer Please select the performing region: [facility] Medical Group [[id number]] Please select the performing department: [facility] [[id number]] Comments [place] location Reason for Visit * Reason Comments Mass Pt is c/o 'bump' on right knee. It is painful. Appeared about 1 wk ago. No injury Encounter Details Date Type Department Care Team (Late st Contact Info) Description 01/19/2024 2:30 PM CDT Office Visit [facility] Medical Group Primary Care at [address] [address] Olga Hernandez, CONSTANZA [address] [facility] [address] [place] [address] Cyst of anterior horn of [...] on file Legal Sex Female 9:30 AM FITNESS TECHNICIAN Gender Identity Female 04/05/2022 6:17 PM [...] - 01/19/2024 2:30 PM CDT My medical registrar and I are thankful you have trusted [...] No pain when walking. Nurses at her [place] facility stated they could feel fluid behind the bump(believe its a cyst). No other complaints or symptoms associated Knee Pain The incident occurred 5 to 7 days ago. The incident occurred at a group home. There was no injurymechanism. The pain is [...] at: [facility] ([facility] order [facility] under 'Procedures' tab)., Disp: 1 each, [...] Primary documented in this encounter Care Teams Charge Accounts Audit Clerk Relationship Specialty Start Date End Date Servando Torre MD [address] [address] PCP - General Family Medicine 06/19/22 Mariela Denton MD [address] [place] [address] Referring Physician Gastroenterology 06/19/22 Lexis Barroso OD [address], [place] [address] Electronics Specialist 09/19/22 documented as of this encounter
--- OUTSIDE RECORDS SUMMARY | 2024-07-15 17:37 | XMS_ITS | Encounter Summary ---
Author Organization [facility] Healthcare Address [address] [place] [address] Care Team Providers Care Sql Dba Name Role Phone Servando Torre MD Primary Care Provider +1- [phone] Mariela Denton MD Unavailable [phone] -[phone] Lexis Barroso OD Unavailable +1- [phone] Encounter Details Date Type Department Care Team (Late st Contact Info) Description 07/24/2023 12:20 PM TEST CENTER ADMINISTRATOR Lab [address] [address] Ulcerative colitis with complication, unspecified location (HCC); [...] on file Legal Sex Female 9:30 AM TEST CENTER ADMINISTRATOR Gender Identity Female 04/05/2022 6:17 PM CDT Sexual Orientation Straight 04/05/2022 6: 17 PM CDT documented as of this encounter Plan of Treatment Not on file documented as of this encounter Procedures Procedure Name Priority Date/Time Associated Diagnosis Comments THIOPURINE METABOLITES Routine 07/24/2023 12:36 PM TEST CENTER ADMINISTRATOR Ulcerative colitis with complication, unspecified location (HCC) High risk medications (not anticoagulants) long-term use 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 6-MMP, bld 2241 < or = 5700 AILEEN RODRIGUEZ ([place]) Comment: Decreased risk of hepatotoxicity. ADDITIONAL INFORMATION Testing performed by Liquid Chromatography-Tandem Mass Spectrometry (LC-MS/MS) This test was developed and its performance characteristics determined by [facility] in a manner consistent with CLIA requirements. This test has not been cleared or approved by the U.S. Food and Drug Administration. Test Performed by: [facility] - [address] [address] Water Engineer: Holden Redman M.D. 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
--- OUTSIDE RECORDS SUMMARY | 2024-07-15 17:37 | XMS_ITS | Encounter Summary ---
Author Organization [facility] Healthcare Address [address] [place] [address] Care Team Providers Care Shredding Floor Equipment Operator Name Role Phone Servando Torre MD Primary Care Provider +1- [phone] Mariela Denton MD Unavailable [phone] -[phone] Lexis Barroso OD Unavailable +1- [phone] Reason for Referral * Physical Therapy (Routine) - Closed Specialty Diagnoses / Procedures Referred By Angel braswell Referred To Contact Physical Therapy Diagnoses Chronic pain of both knees Primary osteoarthritis of both knees Leg weakness, bilateral Weakness of both hips Riri Gonzalez PA [address] [place] [address] [address] Phone: tel: fax: External Order Referral ID Status Reason Start Date Expiration Date V isits Requested Visits Authorized [id number] Closed Specialty Services Required 08/28/2023 09/26/2024 24 [...] Therapist to determine frequency/duration of treatment LE LEADER * Diagnostic Imaging (Routine) - Closed Specialty Diagnoses / Procedures Referred By Angel braswell Referred To Contact Diagnoses Chronic pain of both knees Procedures XR Pelvis 1 or 2 Views Riri Gonzalez PA [address] [facility] [address] [place] [address] Phone: tel: fax: [facility] Medical Group Referral ID Status Reason Start Date Expiration Date Visits Re quested Visits Authorized [id number] Closed 08/28/2023 09/26/2024 1 1 LE LEADER Reason for Visit * Reason Comments Pain Pain * Consultation (Routine) - Closed Specialty Diagnoses / Procedures Referred By Angel braswell Referred To Contact Orthopedic Surgery Diagnoses Chronic pain of both knees Olga Hernandez NP Phone: tel: fax: Riri Gonzalez PA [address] [place] [address] [address] [place] [address] Phone: tel: fax: Referral ID Status Reason Start Date Expiration Date V isits Requested Visits Authorized [id number] Closed Specialty Services Required 08/07/2023 09/05/2024 1 1 Encounter Details Date Type Department Care Team (Late st Contact Info) Description 08/28/2023 11:15 AM NEEDLE LEADER Office Visit [facility] Medical Group Orthopedic and Sports Medicine [address] [place] [address] Riri Gonzalez PA [address] [place] [address] [address] [place] [address] Primary osteoarthritis of both knees (Primary Dx); [...] on file Legal Sex Female 9:30 AM NEEDLE LEADER Gender Identity Female 04/05/2022 6:17 PM CDT Sexual Orientation Straight 04/05/2022 6: 17 PM CDT documented as of this encounter Last Filed Vital Signs Vital Sign Reading Time Taken Comments Blood Pressure 136/73 08/28/2023 11:04 AM NEEDLE LEADER Pulse 69 08/28/2023 11:04 AM NEEDLE LEADER Temperature - - Respiratory Rate - - Oxygen Saturation - - Inhaled Oxygen Concentration - - Weight 65.6 kg (144 lb 11.2 oz) 024 11:04 AM NEEDLE LEADER Height 157.5 cm (5' 2 ) 08/28/2023 11:0 4 AM NEEDLE LEADER Body Mass Index 26.47 08/28/2023 11:04 AM NEEDLE LEADER documented in this encounter Patient Instructions * Patient Instructions* Riri Gonzalez PA - 08/28/2023 11:15 AM NEEDLE LEADER Over the counter medications to try: Topical Voltaren (diclofenac 1%); may use 3-4x daily with caution Topical lidocaine creams or patches (4% OTC) Tylenol up to 3000 mg daily LE LEADER documented in this encounter Progress Notes * [...] Anemia, Broken ribs, Detached retina, Diabetes mellitus ([facility]), GERD (gastroesophageal reflux disease), Gout, Hyperlipidemia, Hypertension, 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 PAST SURGICAL HISTORY She has a [...] corticosteroid injections, viscosupplementation injections, physical therapy, NSAIDs, jhvs-itz-wqyojwp analgesics, and/or topical creams/analgesics. Likely, most of her complaints are due to advanced patellofemoral arthritis along with age-related weakness of the bilateral lower extremities. She has not a candidate for surgical intervention. Therefore we discussed a stepwise approach to managing her symptoms conservatively. She would like to try zzks-pxc-jiiwaev topical agents, use of Tylenol, and additional [...] Samy Boston MD at 09/02/2023 9:04 AM NEEDLE LEADER LE LEADER LE LEADER documented in this encounter Plan of Treatment [...] 4 or More Views (08/28/2023 11:01 AM NEEDLE LEADER) Anatomical Region Laterality Modality Lower Extremities, Knee Digital Radiography Narrative 08/28/2023 1:05 PM NEEDLE LEADER Weightbearing views of the bilateral knee are [...] 1 or 2 Views (08/28/2023 11:01 AM NEEDLE LEADER) Anatomical Region Laterality Modality Body, Pelvis N/A Digital Radiogra phy Narrative 08/28/2023 1:04 PM NEEDLE LEADER Radiographs of the pelvis reviewed interpreted. ??No [...] 2023 documented in this encounter Care Teams Shredding Floor Equipment Operator Relationship Specialty Start Date End Date Servando Torre MD [facility] [address] [address] PCP - General Family Medicine 06/19/22 Mariela Denton MD [facility] [address] [place] [address] Referring Physician Gastroenterology 06/19/22 Lexis Barroso OD [address] [place] [address] Finish Machine Tender 09/19/22 documented as of this encounter
--- OUTSIDE RECORDS SUMMARY | 2024-07-15 17:37 | XMS_ITS | Encounter Summary ---
Author Organization [facility] Healthcare Address [address] [place] [address] Care Team Providers Care Side Laster Name Role Phone Servando Torre MD Primary Care Provider Mariela Denton MD Unavailable [phone] [phone] Lexis Barroso OD Unavailable +1- [phone] Reason for Visit * Reason Onset Date Comments Medical Question/Miscellaneous 07/25/2023 Encounter Details Date Type Department Care Team (Late st Contact Info) Description 07/25/2023 Telephone [facility] Medical Group Primary Care at [address] [address] Servando Torre MD [address] [place] [address] [address] [place] [address] Medical Question/Miscellaneous Social History Tobacco [...] on file Legal Sex Female 9:30 AM DRAMATIC CRITIC Gender Identity Female 04/05/2022 6:17 PM CDT Sexual Orientation Straight 04/05/2022 6: 17 PM CDT documented as of this encounter Miscellaneous Notes * Telephone Encounter - Regina Loo MA - 07/30/2023 2:33 PM DRAMATIC CRITIC Spoke to Mary from Medicare, Mary is faxing a form to be completed. ATIC CRITIC * Telephone Encounter - Clementine Vega - 07/25/2023 4:29 PM CST Call Back Caller???s Concern: Niraj calling back to advise after speaking with Medicare, Medicare advised to Niraj that practice would need to contact Medicare to confirm pharmacy approval in order to bill patient's Medicare part B for the diabetes testing supplies and lancets. Niraj relayed Medicare phone number: [phone]. Please advise with Medicare at number listed above. Does message need to be routed? Yes-Action Needed ATIC CRITIC * Telephone Encounter - Pamela Benites - 07/25/2023 4:16 PM CST Called Niraj and gave dx code. ATIC CRITIC * Telephone Encounter - DeniseOctober - 07/25/2023 12:23 PM CST Medical Question/Miscellaneous Caller???s Concern: Niraj called for the ICd-10 code for them to bill medicare part b for the test strips and lancets please call [facility] Does message need to be routed? Yes-Action Needed ATIC CRITIC documented in this encounter Plan of Treatment Not on file documented as of this encounter Visit Diagnoses Not on filedocumented in this encounter Care Teams Side Laster Relationship Specialty Start Date End Date Servando Torre MD [address] [address] PCP - General Family Medicine 06/19/22 Mariela Denton MD [address] [place] [address] Referring Physician Gastroenterology 06/19/22 Lexis Barroso OD [address] [place] [address] Radial Drill Operator 09/19/22 documented as of this encounter
--- OUTSIDE RECORDS SUMMARY | 2024-07-15 17:37 | XMS_ITS | Encounter Summary ---
Author Organization [facility] Address [address] [place] [address] Phone Care Team Providers Care Discharge Rn Name Role Phone Servando Torre MD Primary Care Provider +1 [phone] Mariela Denton MD Unavailable [phone] -[phone] Lexis Barroso OD Unavailable +1- [phone] Reason for Visit * Reason Comments Follow-up Encounter Details Date Type Department Care Team (Late st Contact Info) Description 11/17/2023 11:15 AM CDT Office Visit [facility] [address] 6th [address] [place] [address] [place], Pamela Ruiz NP [address] [facility] [id number] [place] [address] Vascular dementia without behavioral disturbance [...] on file Legal Sex Female 9:30 AM OPERATIONS EXAMINER Gender Identity Female 04/05/2022 6:17 PM [...] Program, from The Alzheimer's Association, please call [phone], or you can register online [email or web address]. 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 For additional assistance, email [email or web address] or call [phone] (press 1 for clinical trials). ClinicalTrials.gov is a resource provided by the U.S. National Library of Medicine. You can look upclinical trials (research opportunities) online At clinicaltrials.gov Alzheimer's Association [facility] Chapter: ; (toll free); http://www.alz.org, The Alzheimer's Association 17/02 Helpline provides reliable information and support to all those who need assistance. Call toll-free anytime day or night at . Caregiver Guide: tips for caregivers of people with Alzheimer's dementia, www.jerry.nih.gov/Alzheimers /Publication/Jkckpu-dwkgig-mvgmavmiar-disease/about-guide [facility], [address] [place]. [address], , Occupational Therapists who offers caregiver training, family support, and in home safety assessments at no cost. Memorycarehs.org [facility] Agency on Aging (serving [facility]) http://[facility].maine.[facility]/government/hslaaa.html [facility] Agency on Aging (serving [facility] [email or web address] If you need to reach our office, please call our nurse at [phone], option 4, leave a message, this voicemail is checked several times per day. If you need to contact our manager social work: Pablo Burt or Edd Lino, from the Alzheimer's Association, please call [phone] Future Appointments Date Time Provider Department Center 01/01/2024 2:[address] [facility] EDW2 01/12/2024 4:30 PM Adria Burleson MD EPI CAM 6C NL 05/05/2024 3:45 PM Josué Cook MD GI CAM 12B NICE GASTRO 05/11/2024 4:00 PM Kimberly Nicolas MD [facility] CAM 6C NL 09/23/2024 2:00 PM Teofilo Tang MD [facility] CAR MRVL Specialty documented in this encounter Ordered Prescriptions Prescription Sig Dispense Quantity Refills Last Filled Start Date End Date rivastigmine (EXELON) 4.6 mg/[address] 4.6 mg on the skin daily 30 patch 1 11/17/2023 05/19/2024 documented in this encounter Progress Notes * Pamela Langston NP - 11/17/2023 11:15 AM CDT [facility] OFFICE VISIT Pamela MACK- (Nurse Practitioner) [facility] Department of Neurology Patient Name: RADHA ALLEN Medical Record Number (MRN): [id number] Date of (): 1945 Encounter Date: 11/17/2023 [...] supports for caregivers, discussed availability of our Broommaking Supervisor from the Alzheimer's Association ACTIVE PROBLEMS Patient [...] with high-risk medication Abnormal liver function tests snf (current) use of oral hypoglycemic drugs Type [...] catheter every 8 (eight) weeks Infused at: [facility] (OSF order in [facility] under 'Procedures' tab)., Disp: 1 each, Rfl: [...] memory loss. Medical Records Review: I reviewed [facility] notes and prior Neuropsychometric testing scores. 04/09/2023 7:00 AM [facility] Neurobehavioral Status Exam Results Repository ICF signed? No Verbal Fluency Total Score 10 [place] Naming (15 item) Total Score 15 MMSE [...] Sensation was intact to light touch. Coordination Eaqmxi-uozx-thifxa testing was normal. Reflexes Reflexes were symmetric at the biceps, brachioradialis and knees. Gait Gait was slow and ambulates with walker She was fluent throughout the interview and examination. NEUROBEHAVIORAL TESTING REPORT On formal neurobehavioral testing, which took from 1591-7738. On more global tests, MMSE was 29. [...] GDS. Neurobehavioral test results: 04/09/2023 7:00 AM [facility] Neurobehavioral Status Exam Results Repository ICF signed? No Verbal Fluency Total Score 10 [place] Naming (15 item) Total Score 15 MMSE [...] Errors 0 Clinical Dementia Ratin04/09/2023 7:00 AM [facility] CDR/DIAGNOSIS NEW Repository ICF signed? No Memory [...] now living in assisted living facility at [facility] in [place], [place]. She is struggling with sleep and [...] Program, from The Alzheimer's Association, please call [phone], or you can register online [email or web address]. 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 For additional assistance, email or call [phone] (press 1 for clinical trials). ClinicalTrials.gov is a resource provided by the U.S. National Library of Medicine. You can look upclinical trials (research opportunities) online At clinicaltrials.gov Alzheimer's Association [facility] Chapter: ; (toll free); http://www.alz.org, The Alzheimer's Association 17/02 Helpline provides reliable information and support to all those who need assistance. Call toll-free anytime day or night at . Caregiver Guide: tips for caregivers of people with Alzheimer's dementia, www.jerry.nih.gov/Alzheimers /Publication/Sssegp-zoolkt-xozejqqlvq-disease/about-guide [facility], [address] [place]. [address], , Occupational Therapists who offers caregiver training, family support, and in home safety assessments at no cost. Memorycarehs.org [facility] Agency on Aging ([facility]) http://[facility].maine.[facility]/government/hslaaa.html [facility] [email or web address] If you need to reach our office, please call our nurse at [phone], option 4, leave a message, this voicemail is checked several times per day. If you need to contact our manager social work: Pablo Burt or Edd Lino, from the Alzheimer's Association, please call [phone] Future Appointments Date Time Provider Department Center 01/01/2024 2:00 PM Servando Torre MD PCP EDW2 01/12/2024 4:30 PM Adria Burleson MD EPI CAM 6C 05/05/2024 3:45 PM Josué Cook MD [place] [id number] [facility] 05/11/2024 4:00 PM Kimberly Nicolas MD [facility] CAM 6C 09/23/2024 2:00 PM Teofilo Tang MD [facility] CAR VL Specialty I spent 45 minutes,face [...] reflect the currentclinical condition. Pamela Langston MSN, [employer] ELECTRICIAN-[facility] [employer] [address] [facility] [place] [address] documented in this encounter Plan of Treatment Not on file documented as of this encounter Visit Diagnoses Diagnosis Vascular dementia without behavioral disturbance (HCC)- Primary documented in this encounter Care Teams Discharge Rn Relationship Specialty Start Date End Date Servando Torre MD [address] [facility] [address] [place] [address] PCP - General Family Medicine 06/19/22 Mariela Denton MD [address] [place] [address] Referring Physician Gastroenterology 06/19/22 Lexis Barroso OD [address] [place] [address] Barrel Driller 09/19/22 documented as of this encounter
--- OUTSIDE RECORDS SUMMARY | 2024-07-15 17:37 | XMS_ITS | Encounter Summary ---
Author Organization [facility] ED Address [address] [place] [address] Care Team Providers Care Cupola Melting Supervisor Name Role Phone Servando Torre MD Primary Care Provider [phone] Mariela Denton MD Unavailable +1 -[phone] Lexis Barroso OD Unavailable +1- [phone] Reason for Referral * Consultation (Routine) - Closed Specialty Diagnoses / Procedures Referred By Contclemencia t Referred To Contact Orthopedic Surgery Diagnoses Knee joint cyst, right Olga Hernandez NP Phone: tel: fax: Tierney Mcdaniel MD [address] [place] [address] Phone: tel: Referral ID Status Reason Start Date Expiration Date V isits Requested Visits Authorized [id number] Closed Specialty Services Required 01/21/2024 02/19/2025 1 1 Question Answer Please select the performing region: [facility] [[id number]] Please select the performing department: [facility] [[id number]] To provider: TIERNEY MCDANIEL [[id number]] # of visits: 1 Encounter Details Date Type Department Care Team (Late st Contact Info) Description 01/21/2024 Orders Only [facility] Primary Care at [address] [address] Olga Hernandez NP [address] [place] [address] Knee joint cyst, right (Primary Dx) Social [...] on file Legal Sex Female 9:[address] SUPERVISOR OF ENGINES Gender Identity Female 04/05/2022 6:17 PM CDT [...] Primary documented in this encounter Care Teams Cupola Melting Supervisor Relationship Specialty Start Date End Date Servando Torre MD [address] [place] [address] PCP - General Family Medicine 06/19/22 Mariela Denton MD [address] [place] [address] Referring Physician Gastroenterology 06/19/22 Lexis Barroso OD [address] [place] [address] Purchase Order Checker 09/19/22 documented as of this encounter
--- OUTSIDE RECORDS SUMMARY | 2024-07-15 17:37 | XMS_ITS | Encounter Summary ---
Author Organization [facility] Address [address] [place] [address] Phone Care Team Providers Care Painter Helper Sign Name Role Phone Servando Torre MD Primary Care Provider [phone] Mariela Denton MD Unavailable [phone] [phone] Lexis Barroso OD Unavailable +1- [phone] Reason for Visit * Reason Onset Date Comments Plan to check Entyvio level 08/19/2023 Encounter Details Date Type Department Care Team (Late st Contact Info) Description 08/19/2023 Documentation [facility] [address] [facility] 12th [place] [address] [place] [id number] Lexis Renteria, ELMO Plan to check Entyvio [...] on file Legal Sex Female 9:30 AM CPR INSTRUCTOR Gender Identity Female 04/05/2022 6:17 PM CDT [...] scheduled for 10/07/23. External order faxed to [facility] infusion center. Asked infusion team to reach out to our office if unable to draw Vedo level so that we canmake other arrangements, if necessary -------Fax Transmission Report------- To: Recipient at [phone] Subject: Joseph Allen Vedolizumab level (secure) Result: The transmission was successful. Explanation: All Pages Ok Pages Sent: 2 Connect Time: 1 minutes, 46 seconds Transmit Time: 08/19/2023 13:35 Transfer Rate: 9600 Status Code: 0000 Retry Count: 0 Job Id: [id number] Unique Id: [id number] Fax Line: 22 Fax Warp Hauler: [id number] INSTRUCTOR documented in this encounter Plan of Treatment Not on file documented as of this encounter Visit Diagnoses Not on filedocumented in this encounter Care Teams Painter Helper Sign Relationship Specialty Start Date End Date Servando Torre MD [address] [facility] [address] [place] [address] PCP - General Family Medicine 06/19/22 Mariela Denton MD [address] [place] [address] Referring Physician Gastroenterology 06/19/22 Lexis Barroso OD [address] [place] [address] Mattress Stuffer 09/19/22 documented as of this encounter
--- OUTSIDE RECORDS SUMMARY | 2024-07-15 17:37 | XMS_ITS | Encounter Summary ---
Author Organization [facility] Healthcare Address [address] [place] [address] Care Team Providers Care Bakery Sales Clerk Name Role Phone Servando Torre MD Primary Care Provider Mariela Denton MD Unavailable [phone] -[phone] Lexis Barroso OD Unavailable +1- [phone] Reason for Visit * Reason Comments Follow-up 3 month f/u Encounter Details Date Type Department Care Team (Late st Contact Info) Description 01/01/2024 2:00 PM CDT Office Visit [facility] Medical Group Primary Care at [address] [address] Servando Torre MD [address] [place] [address] [address] [place] [address] Hypertension associated with diabetes (HCC) [...] on file Legal Sex Female 9:30 AM TECHNICAL SYSTEMS ARCHITECT Gender Identity Female 04/05/2022 6:17 PM [...] venous catheter every8 (eight) weeks Infused at: [facility] order in Epic under 'Procedures' [...] CDT 03/30/2024 4:55 PM CDT us Servando oTrre MD LAB BLOOD ORDERABLES Final Result [facility] [address] [place] [address] * (ABNORMAL) Hemoglobin A1c (03/30/2024 [...] children were not included. ?? (Diabetes Care 31:9502-7161, 2008). ??The eAG is not equivalent to a fasting glucose. Blood 03/30/2024 9:26 AM CDT 03/30/2024 4:55 PM CDT Servando Torre MD LAB BLOOD ORDERABLES Final Result [facility] [address] [place] [address] * Comprehensive metabolic panel (03/30/2024 9:26 AM [...] BLOOD ORDERABLES Final Result Performing Organization Address City/[facility]/ZIP Co de Phone Number AILEEN MATTHEW [address] [place] [address] * (ABNORMAL) CBC with auto differential (03/30/2024 9:26 AM CDT) [facility] WBC 8.4 3.8 - 9.9 K/cumm Hgb [...] BLOOD ORDERABLES Final Result Performing Organization Address City/[facility]/ZIP Co de Phone Number [facility]LE[facility] MATTHEW [address] Department of [employer] [place], [place] [id number] * (ABNORMAL) POCT hemoglobin A1c (01/01/2024 2:39 [...] week added in this encounter Care Teams Bakery Sales Clerk Relationship Specialty Start Date End Date Servando Torre MD [facility] [address] [place] [address] PCP - General Family Medicine 06/19/22 Mariela Denton MD [address] [place] [address] Referring Physician Gastroenterology 06/19/22 Lexis Barroso OD [address] [place] [address] Feather Shaper 09/19/22 documented as of this encounter
--- OUTSIDE RECORDS SUMMARY | 2024-07-15 17:37 | XMS_ITS | Encounter Summary ---
Author Organization [facility] Healthcare Address [address] [place] [address] Care Team Providers Care Dye Range Operator Cloth Name Role Phone Servando Torre MD Primary Care Provider Mariela Denton MD Unavailable [phone] [phone] Lexis Barroso OD Unavailable +1- [phone] Reason for Visit * Reason Onset Date Comments Patient Running Late For Apt 09/30/2023 Encounter Details Date Type Department Care Team (Late st Contact Info) Description 09/30/2023 Telephone [facility] Medical Group Primary Care at [place] [address] [place] [address] Servando Torre MD [address] [place] [address] [address] [place] [address] Patient Running Late For Apt [...] on file Legal Sex Female 9:30 AM RETAIL ASSISTANT Gender Identity Female 04/05/2022 6:17 PM [...] message need to be routed? Yes-FYI Only [place] ASSISTANT documented in this encounter Plan of Treatment Not on file documented as of this encounter Visit Diagnoses Not on filedocumented in this encounter Care Teams Dye Range Operator Cloth Relationship Specialty Start Date End Date Servando Torre MD [facility] [place] [address] PCP - General Family Medicine 06/19/22 Mariela Denton MD [facility] [address] [place] [address] Referring Physician Gastroenterology 06/19/22 Lexis Barroso OD [address] [place] [address] Professional Engineer 09/19/22 documented as of this encounter
--- OUTSIDE RECORDS SUMMARY | 2024-07-15 17:37 | XMS_ITS | Encounter Summary ---
Author Organization [facility] Healthcare Address [address] [place] [address] Care Team Providers Care Grain And Yeast Plants Supervisor Name Role Phone Servando Torre MD Primary Care Provider [phone]- [phone] Mariela Denton MD Unavailable [phone] [phone] Lexis Barroso OD Unavailable +1- [phone] Encounter Details Date Type Department Care Team (Latest Contact Info) Description 09/30/2023 2:03 PM EDGE BURNISHER - 09/30/2023 11:59 PM EDGE BURNISHER Hospital Encounter [facility] [id number] [place] [address] Hypertension associated with type 2 diabetes [...] on file Legal Sex Female 9:30 AM EDGE BURNISHER Gender Identity Female 04/05/2022 6:17 PM CDT [...] daily with breakfast 90 tablet 1 04/01/2023 metoprolol tartrate (LOPRESSOR) 50 mg immediate release [...] To check blood glucose 50 each 08/16/2022 vedolizumab (ENTYVIO) 300 mg recon solnIndications:Ch [...] Diagnosis Comments EGFR Routine 09/30/2023 2:03 PM EDGE BURNISHER Hypertension associated with type 2 diabetes mellitus (HCC) DIFFERENTIAL AUTO Routine 09/30/2023 2:0 3 PM EDGE BURNISHER Hypertension associated with type 2 diabetes mellitus (HCC) Gastroesophageal reflux disease without esophagitis THYROID FUNCTION CASCADE Routine 09/30/2023 2:03 PM EDGE BURNISHER Hypertension associated with type 2 diabetes mellitus (HCC) CBC WITH AUTO DIFFERENTIAL Routine 09/30/2023 2:03 PM EDGE BURNISHER Hypertension associated with type 2 diabetes mellitus (HCC) Gastroesophageal reflux disease without esophagitis HEMOGLOBIN A1C Routine 09/30/2023 2:03 PM EDGE BURNISHER Hypertension associated with type 2 diabetes mellitus (HCC) LIPID PANEL Routine 09/30/2023 2:03 PM EDGE BURNISHER Mixed hyperlipidemia COMPREHENSIVE METABOLIC PANEL Routine 09/30/2023 2:03 PM EDGE BURNISHER Hypertension associated with type 2 diabetes mellitus (HCC) documented in this encounter Results * eGFR (09/30/2023 2:03 PM EDGE BURNISHER) [facility] eGFR 64 mL/min/1. 73 m2 AILEEN [...] last reviewed 2021. Blood 09/30/2023 2:03 PM EDGE BURNISHER 09/30/2023 8:19 PM EDGE BURNISHER us Servando Torre MD LAB BLOOD ORDERABLES Final Result [facility] [address] Department [place] [address] * Differential, auto (09/30/2023 2:03 PM EDGE BURNISHER) Neutrophil abs 5.7 1.5 - 6.5 K/cumm [facility] Imm gran abs 0.0 0.0 - 0.1 K/cumm [facility] Lymphocyte abs 1.9 0.8 - 3.3 K/cumm [facility] Monocyte abs 0.8 0.2 - 0.8 K/cumm [facility] Eosinophil abs 0.2 0.0 - 0.5 K/cumm [facility] Basophil abs 0.0 0.0 - 0.1 K/cumm [facility] Neutrophil pct 66.1 % [facility] Comment: Interpretive Data Percent cell count reference ranges are not reported, since discordance with absolute values may lead to misinterpretation of CBC data. Current Interpretive Data was last revised on 2017. Imm gran pct 0.3 % [facility] Comment: Interpretive Data Percent cell count reference ranges are not reported, since discordance with absolute values may lead to misinterpretation of CBC data. Current Interpretive Data was last revised on 2017. Lymphocyte pct 21.7 % [facility] Comment: Interpretive Data Percent cell count reference ranges are not reported, since discordance with absolute values may lead to misinterpretation of CBC data. Current Interpretive Data was last revised on 2017. Monocyte pct 8.8 % [facility] Comment: Interpretive Data Percent cell count reference ranges are not reported, since discordance with absolute values may lead to misinterpretation of CBC data. Current Interpretive Data was last revised on 2017. Eosinophil pct 2.6 % [facility] Comment: Interpretive Data Percent cell [...] revised on 2017. Blood 09/30/2023 2:03 PM EDGE BURNISHER 09/30/2023 8:09 PM EDGE BURNISHER Servando Torre MD LAB BLOOD ORDERABLES Final Result Performing Organization Address [facility] Co de Phone Number AILEEN [address] [place] [address] * Thyroid Function [place] (09/30/2023 2:03 PM EDGE BURNISHER) TSH 0.72 0.30 - 4.20 mcIUnit/mL AILEEN Blood 09/30/2023 2:03 PM EDGE BURNISHER 09/30/2023 8:09 PM EDGE BURNISHER Result [facility] Servando Torre MD LAB BLOOD ORDERABLES Final Result Performing Organization Address [facility] Co de Phone Number [facility] [address] [place] [address] * (ABNORMAL) Hemoglobin A1c (09/30/2023 2:03 PM EDGE BURNISHER) Hgb A1C 6.3(H) 4.0 - 5.6 % [facility]LEEN Estimated Average Glucose 134 mg/dL [facility] Comment: The ADA recommends reporting an estimated Average Glucose (eAG) with all Hemoglobin A1c results using the equation derived from a study of 507 normal and diabetic adults. ??Minority populations were underrepresented and children were not included. ?? (Diabetes Care 31:8686-6739, 2008). ??The eAG is not equivalent to a fasting glucose. Blood 09/30/2023 2:03 PM EDGE BURNISHER 09/30/2023 8:09 PM EDGE BURNISHER us Servando Torre MD LAB BLOOD ORDERABLES Final Result Performing Organization Address City/State/ZIP [facility] Phone Number AILEEN [phone] Department [place] [address] * Lipid panel (09/30/2023 2:03 PM EDGE BURNISHER) Cholesterol 191 30 - 199 mg/dL AILEEN [...] 3 [facility] CH Blood 09/30/2023 2:03 PM EDGE BURNISHER 09/30/2023 8:09 PM EDGE BURNISHER us Servando Torre MD LAB BLOOD ORDERABLES Final Result [facility] [address] Department [place] [address] * (ABNORMAL) Comprehensive metabolic panel (09/30/2023 2:03 PM EDGE BURNISHER) Sodium 141 135 - 145 mmol/L [facility] CH Potassium, pl 4.5 3.3 - 4.9 mmol/L [facility] Chloride 103 97 - 110 mmol/L [facility] CO2 26 22 - 32 mmol/L [facility] Anion gap 12 2 - 15 mmol/L [facility] BUN 22 6 - 25 mg/dL [facility] Creatinine 0.91 0.60 - 1.10 mg/dL CERNER [...] Units/L [facility] CH Blood 09/30/2023 2:03 PM EDGE BURNISHER 09/30/2023 8:09 PM EDGE BURNISHER Servando Torre MD LAB [place] [address] [address] Department [place] [address] * (ABNORMAL) CBC with auto differential (09/30/2023 2:03 PM EDGE BURNISHER) WBC 8.6 3.8 - 9.9 K/cumm [facility] [...] K/cumm [facility] Blood 09/30/2023 2:03 PM EDGE BURNISHER 09/30/2023 8:09 PM EDGE BURNISHER Servando Torre MD LAB BLOOD ORDERABLES Final Result [facility] [address] Department [place] [address] documented in this encounter Visit Diagnoses Diagnosis Hypertension associated with type 2 diabetes mellitus (HCC) Gastroesophageal reflux disease without esophagitis Esophageal reflux Mixed hyperlipidemia documented in this encounter Care Teams Grain And Yeast Plants Supervisor Relationship Specialty Start Date End Date Servando Torre MD [facility] [address] PCP - General Family Medicine 06/19/22 Mariela Denton MD [facility] [address] [facility] [address] [place] [address] Referring Physician Gastroenterology 06/19/22 Lexis Barroso OD [address] [place] [address] Shovel Loader Operator 09/19/22 documented as of this encounter
--- OUTSIDE RECORDS SUMMARY | 2024-07-15 17:37 | XMS_ITS | Encounter Summary ---
Author Organization [facility] Healthcare Address [address] [place] [address] Care Team Providers Care Pricing Lead Name Role Phone Servando Torre MD Primary Care Provider [phone] Mariela Denton MD Unavailable [phone] [phone] Lexis Barroso OD Unavailable [phone]- [phone] Encounter Details Date Type Department Care Team (Late st Contact Info) Description 2024 Orders Only [facility] Medical Group Primary Care at [address] [address] Servando Torre MD [address] [place] [address] [address] [place] [address] Social History Tobacco Use Types [...] on file Legal Sex Female 9:30 AM EXPLOSIVE ORDNANCE SPECIALIST Gender Identity Female 04/05/2022 6:17 PM [...] 04/01/2024 added in this encounter Care Teams Pricing Lead Relationship Specialty Start Date End Date Servando Torre MD [address] [facility] [address] [place] [address] PCP - General Family Medicine 06/19/22 Mariela Denton MD [facility] [address] [place] [address] Referring Physician Gastroenterology 06/19/22 Lexis Barroso OD [address] [place] [address] [address] Brake Coupler 09/19/22 documented as of this encounter
--- OUTSIDE RECORDS SUMMARY | 2024-07-15 17:38 | XMS_ITS | Encounter Summary ---
Author Organization [facility] Healthcare Address [address] [place] [address] Care Team Providers Care Change Control Analyst Name Role Phone Servando Torre MD Primary Care Provider +1- [phone] Mariela Denton MD Unavailable +1 -[phone] Lexis Barroso OD Unavailable +1- [phone] Reason for Visit * Reason Comments Medicare Wellness Encounter Details Date Type Department Care Team (Late st Contact Info) Description 06/26/2023 2:00 PM ASSEMBLER TYPE BAR AND SEGMENT Office Visit [facility] Medical Group Primary Care at [address] [address] Servando Torre MD [address] [place] [address] [address] [place] [address] Encounter for Medicare annual wellness [...] on file Legal Sex Female 9:30 AM ASSEMBLER TYPE BAR AND SEGMENT Gender Identity Female 04/05/2022 6:17 PM CDT Sexual Orientation Straight 04/05/2022 6: 17 PM CDT documented as of this encounter Last Filed Vital Signs Vital Sign Reading Time Taken Comments Blood Pressure 172/80 06/26/2023 2:29 PM ASSEMBLER TYPE BAR AND SEGMENT Pulse 66 06/26/2023 1:55 PM ASSEMBLER TYPE BAR AND SEGMENT Temperature 36.8 ??C (98.2 ??F) 06/26/2023 1:55 PM CS T Respiratory Rate 17 06/26/2023 1:55 PM ASSEMBLER TYPE BAR AND SEGMENT Oxygen Saturation 96% 06/26/2023 1:55 PM ASSEMBLER TYPE BAR AND SEGMENT Inhaled Oxygen Concentration - - Weight 68.7 kg (151 lb 6.4 oz) 06/26/2023 1:55 P M ASSEMBLER TYPE BAR AND SEGMENT Height 157.5 cm (5' 2 ) 06/26/2023 1:55 PM ASSEMBLER TYPE BAR AND SEGMENT Body Mass Index 27.69 06/26/2023 1:55 PM ASSEMBLER TYPE BAR AND SEGMENT documented in this encounter Patient Instructions * Patient Instructions* Servando Torre MD - 06/26/2023 2:00 PM ASSEMBLER TYPE BAR AND SEGMENT BP trend x 2 weeks, send numbers [...] you have any questions or concerns at [phone]. You may receive a phone call, text, MYCHART message, or e-mail asking about your care today. We would love to hear your feedback on how EXCELLENT your care wastoday! Wishing you better health, always. Dr. Torre MBLER TYPE BAR AND SEGMENT MBLER TYPE BAR AND SEGMENT * Attachments The following attachments cannot be sent through Care Everywhere. * Losartan (By mouth) (Cypriot) documented in this encounter Ordered Prescriptions Prescription [...] [facility] ([facility] order in [facility] under 'Procedures' tab)., Disp: 1 each, [...] as Referring Physician (Gastroenterology) Lexis Barroso OD (Director Of Catering) Primary Pharmacy/DME suppliers: [id number] [place], [place] - [address] AT [address] [facility] [address] Detection of Cognitive Impairment: Mini-Co/5 The patient [...] Improve Diet Advanced Directive Durable Power of Automation Design Engineer: Yes Living Will: Yes Opioid Usage Review [...] update and summary of today's office visit. MBLER TYPE BAR AND SEGMENT documented in this encounter Miscellaneous Notes * Assessment & Plan Note - Servando Torre MD - 06/26/2023 2:02 PM ASSEMBLER TYPE BAR AND SEGMENT Associated Problem(s): Encounter for Medicare annual wellness [...] risks vs benefits. Return in 3 months MBLER TYPE BAR AND SEGMENT * Addendum Note - Yesenia Parekh - 06/26/2023 2:00 PM CSTAddended by: YESENIA PAREKH on: 09/30/2023 02:03 PM Modules accepted: Orders MBLER TYPE BAR AND SEGMENT documented in this encounter Plan of Treatment Not on file documented as of this encounter Results * (ABNORMAL) CBC with auto differential (09/30/2023 2:03 PM ASSEMBLER TYPE BAR AND SEGMENT) WBC 8.6 3.8 - 9.9 K/cumm CERNER [...] K/cumm CERNER CH Blood 09/30/2023 2:03 PM ASSEMBLER TYPE BAR AND SEGMENT 09/30/2023 8:09 PM ASSEMBLER TYPE BAR AND SEGMENT Servando Torre MD LAB BLOOD ORDERABLES Final Result Performing Organization Address City/[place] [address] [address] Department [place] [address] * (ABNORMAL) Comprehensive metabolic panel (09/30/2023 2:03 PM ASSEMBLER TYPE BAR AND SEGMENT) Sodium 141 135 - 145 mmol/L CERNER [...] Units/L CERNER CH Blood 09/30/2023 2:03 PM ASSEMBLER TYPE BAR AND SEGMENT 09/30/2023 8:09 PM ASSEMBLER TYPE BAR AND SEGMENT us Servando Torre MD LAB BLOOD ORDERABLES Final Result Performing Organization Address City/State/ZIP Co co Phone Number AILEEN [address] [facility] Department [place] [address] * Lipid panel (09/30/2023 2:03 PM ASSEMBLER TYPE BAR AND SEGMENT) Cholesterol 191 30 - 199 mg/dL [facility] Comment: Interpretive Data Ages < or = [...] revised on 2018. Triglycerides 136 <=149 mg/dL [facility] Comment: Interpretive Data Ages < [...] ratio 3 AILEEN Blood 09/30/2023 2:03 PM ASSEMBLER TYPE BAR AND SEGMENT 09/30/2023 8:09 PM ASSEMBLER TYPE BAR AND SEGMENT Servando Torre MD LAB BLOOD ORDERABLES Final Result Performing Organization Address [facility] Phone Number [facility] [address] [place] [address] * (ABNORMAL) Hemoglobin A1c (09/30/2023 2:03 PM ASSEMBLER TYPE BAR AND SEGMENT) Hgb A1C 6.3(H) 4.0 - 5.6 % AILEEN Estimated Average Glucose 134 mg/dL AILEEN Comment: The ADA recommends reporting an estimated Average Glucose (eAG) with all Hemoglobin A1c results using the equation derived from a study of 507 normal and diabetic adults. ??Minority populations were underrepresented and children were not included. ?? (Diabetes Care 31:1098-9125, 2008). ??The eAG is not equivalent to a fasting glucose. Blood 09/30/2023 2:03 PM ASSEMBLER TYPE BAR AND SEGMENT 09/30/2023 8:09 PM ASSEMBLER TYPE BAR AND SEGMENT Servando Torre MD LAB BLOOD ORDERABLES Final Result Performing Organization Address [facility] de Phone Number AILEEN [address] [address] [facility] [place] [address] * Thyroid Function [place] (09/30/2023 2:03 PM ASSEMBLER TYPE BAR AND SEGMENT) TSH 0.72 0.30 - 4.20 mcIUnit/mL AILEEN MATTHEW Blood 09/30/2023 2:03 PM ASSEMBLER TYPE BAR AND SEGMENT 09/30/2023 8:09 PM ASSEMBLER TYPE BAR AND SEGMENT Servando Torre MD LAB BLOOD ORDERABLES Final Result AILEEN [address] [address] Department [place] [address] documented in this encounter Visit Diagnoses Diagnosis [...] Indications: hypertensionIndications:hypertensi on Given 06/26/2023 2:34 PM ASSEMBLER TYPE BAR AND SEGMENT 0.1 mg documented in this encounter Discontinued [...] 06/27/2023 added in this encounter Care Teams Change Control Analyst Relationship Specialty Start Date End Date Servando Torre MD [facility] [address] [place] [address] PCP - General Family Medicine 06/19/22 Mariela Denton MD [address] [place] [address] Referring Physician Gastroenterology 06/19/22 Lexis Barroso OD [address] [place] [address] Director Of Catering 09/19/22 documented as of this encounter
--- OUTSIDE RECORDS SUMMARY | 2024-07-15 17:38 | XMS_ITS | Encounter Summary ---
Author Organization [facility] Address [address] [place] [address] Phone Care Team Providers Care Video Presentation Operator Name Role Phone Servando Torre MD Primary Care Provider [phone] Mariela Denton MD Unavailable +1 -[phone] Lexis Barroso OD Unavailable +1- [phone] Reason for Visit * Reason Onset Date Comments Thiopurine metabolites to be drawn at 06/10 infu brian appt 05/20/2023 Encounter Details Date Type Department Care Team (Late st Contact Info) Description 05/20/2023 Documentation [facility] [address] [facility] 12th [place] [address] [place] [id number] Janice Baez LPN Thiopurine metabolites to be [...] on file Legal Sex Female 9:30 AM RECYCLING PROGRAM MANAGER Gender Identity Female 04/05/2022 6:17 PM CDT Sexual Orientation Straight 04/05/2022 6: 17 PM CDT documented as of this encounter Progress Notes * Janice Baez LPN - 05/20/2023 8:16 AM CDT Msg received from COFFEE HOST Mayra Zelaya who saw pt in clinic on 05/16/2023 for follow up, as pt'sLFTs were up a little with last labs, COFFEE HOST advised that we have pt's infusion team draw thiopurine metabolites at her next infusion appt on 06/10/2023. One time external order placed for thiopurine metabolites. Order faxed to pt's infusion team at . Asked infusion team to contact our office if they are unable to draw this. Reminder set for follow up of results. -------Fax Transmission Report------- To: Recipient at [phone] Subject: Joseph Allen - Lab Order [Secure] Result: The transmission was successful. Explanation: All Pages Ok Pages Sent: 2 Connect Time: 0 minutes, 33 seconds Transmit Time: 05/20/2023 08:56 Transfer Rate: 06300 Status Code: 0000 Retry Count: 3 Job Id: [id number] Unique Id: [id number] Fax Line: 4 Fax Thermal Surfacing Machine Operator: [id number] documented in this encounter Plan of Treatment [...] medications documented in this encounter Care Teams Video Presentation Operator Relationship Specialty Start Date End Date Servando Torre MD [address] [facility] [address] [place] [address] PCP - General Family Medicine 06/19/22 Mariela Denton MD [address] [place] [address] Referring Physician Gastroenterology 06/19/22 Lexis Barroso OD [address] [place] [address] Or Rn 09/19/22 documented as of this encounter
--- OUTSIDE RECORDS SUMMARY | 2024-07-15 17:38 | XMS_ITS | Encounter Summary ---
Author Organization [facility] Healthcare Address [address] [place] [address] Care Team Providers Care Bowl Attendant Name Role Phone Servando Torre MD Primary Care Provider Marilea Denton MD Unavailable [phone] [phone] Lexis Barroso OD Unavailable +1- [phone] Encounter Details Date Type Department Care Team (Late st Contact Info) Description 07/04/2023 Telephone [facility] Medical Group Primary Care at [address] [address] Servando Torre MD [address] [place] [address] [address] [place] [address] Social History Tobacco Use Types [...] on file Legal Sex Female 9:30 AM CUSTODIAN ATHLETIC EQUIPMENT Gender Identity Female 04/05/2022 6:17 PM CDT Sexual Orientation Straight 04/05/2022 6: 17 PM CDT documented as of this encounter Miscellaneous Notes * Telephone Encounter - Lexis Jhaveri MA - 07/07/2023 10:43 AM CST HH notified. [employer] * Telephone Encounter - Lexis Jhaveri MA - 07/04/2023 11:39 AM CST Talked with HH. Their coding dept is having a hard time getting ins to cover their services. 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 They have notes from her neurologist where is suggests that but they cannot use this. [employer] * Telephone Encounter - Hailey Orourke - 07/04/2023 10:21 AM CST HH called stating they have questions regarding pt's services. P: [phone] [employer] documented in this encounter Plan of Treatment Not on file documented as of this encounter Visit Diagnoses Not on filedocumented in this encounter Care Teams Bowl Attendant Relationship Specialty Start Date End Date Servando Torre MD [facility] [address] [place] [address] PCP - General Family Medicine 06/19/22 Mariela Denton MD [address] [place] [address] Referring Physician Gastroenterology 06/19/22 Lexis Barroso OD [address] [place] [address] Boilermaker Ship 09/19/22 documented as of this encounter
--- OUTSIDE RECORDS SUMMARY | 2024-07-15 17:38 | XMS_ITS | Encounter Summary ---
Author Organization [facility] Healthcare Address [address] [place] [address] Care Team Providers Care Plastics Spreading Machine Operator Name Role Phone Servando Torre MD Primary Care Provider [phone]- [phone] Mariela Denotn MD Unavailable [phone] -[phone] Lexis Barroso OD Unavailable +1- [phone] Reason for Visit * Reason Onset Date Comments OV on 06/27/23 07/01/2023 Encounter Details Date Type Department Care Team (Late st Contact Info) Description 07/01/2023 Telephone [facility] Medical Group Cardiology [address] [place] [address] Annemarie Bauman MA OV on [...] on file Legal Sex Female 9:30 AM HELICOPTER OFFICER Gender Identity Female 04/05/2022 6:17 PM [...] in person directly after MyChart msg wassent. COPTER OFFICER documented in this encounter Plan of Treatment Not on file documented as of this encounter Visit Diagnoses Not on filedocumented in this encounter Care Teams Plastics Spreading Machine Operator Relationship Specialty Start Date End Date Servando Torre MD [address] [address] PCP - General Family Medicine 06/19/22 Mariela Denton MD [address] [place] [address] Referring Physician Gastroenterology 06/19/22 Lexis Barroso OD [address], [place] [address] Camp Cook 09/19/22 documented as of this encounter
--- OUTSIDE RECORDS SUMMARY | 2024-07-15 17:38 | XMS_ITS | Encounter Summary ---
Author Organization [facility] Healthcare Address [address] [place] [address] Care Team Providers Care Professor Of Kinesiology Name Role Phone Servando Torre MD Primary Care Provider Mariela Denton MD Unavailable [phone] [phone] Lexis Barroso OD Unavailable +1- [phone] Reason for Visit * Reason Onset Date Comments Medical Question/Miscellaneous 05/15/2023 Encounter Details Date Type Department Care Team (Late st Contact Info) Description 05/15/2023 Telephone [facility] Medical Group Primary Care at [place] [address] [place] [address] Servando Torre MD [address] [place] [address] [address] [place] [address] Medical Question/Miscellaneous Social History Tobacco [...] on file Legal Sex Female 9:30 AM CANADIAN BACON TIER Gender Identity Female 04/05/2022 6:17 PM CDT [...] to back line. Caller???s Call back #: [phone] Does message need to be routed? No documented in this encounter Plan of Treatment Not on file documented as of this encounter Visit Diagnoses Not on filedocumented in this encounter Care Teams Professor Of Kinesiology Relationship Specialty Start Date End Date Servando Torre MD [address] [address] PCP - General Family Medicine 06/19/22 Mariela Denton MD [address] [place] [address] Referring Physician Gastroenterology 06/19/22 Lexis Barroso OD [address] [place] [address] Offset Press Assistant 09/19/22 documented as of this encounter
--- OUTSIDE RECORDS SUMMARY | 2024-07-15 17:38 | XMS_ITS | Encounter Summary ---
Author Organization [facility] Healthcare Address [address] [place] [address] Care Team Providers Care Returned Item Clerk Name Role Phone Servando Torre MD Primary Care Provider [phone] Mariela Denton MD Unavailable [phone] [phone] Lexis Barroso OD Unavailable +1- [phone] Reason for Visit * Cardiology (Routine) - Closed Specialty Diagnoses / Procedures Referred By Contac t Referred To Contact Diagnoses Syncope, unspecified syncope type Seizure (HCC) Bradycardia Procedures MCT Mobile Cardiac Telemetry Event Monitor Mesfin Rosenthal MD Phone: tel: fax: [facility] Medical Group Referral ID Status Reason Start Date Expiration Date Visits Re quested Visits Authorized [id number] Closed 06/27/2023 07/26/2024 1 1 Encounter Details Date Type Department Care Team (Latest Contact Info) Description 06/27/2023 2:30 PM ULTRASOUND TECHNOLOGIST SONOGRAPHER Ancillary Procedure [facility] Medical Group Cardiology [address] [place] [address] Syncope, unspecified syncope type; Seizure [...] on file Legal Sex Female 9:30 AM ULTRASOUND TECHNOLOGIST SONOGRAPHER Gender Identity Female 04/05/2022 6:17 PM CDT Sexual Orientation Straight 04/05/2022 6: 17 PM CDT documented as of this encounter Plan of Treatment Not on file documented as of this encounter Procedures Procedure Name Priority Date/Time Associated Diagnosis Comments MCT - MOBILE CARDIAC TELEMETRY EVENT MONITOR Routine 06/27/2023 3:42 PM ULTRASOUND TECHNOLOGIST SONOGRAPHER Syncope, unspecified syncope type Seizure (HCC) Bradycardia documented in this encounter Results * MCT Mobile Cardiac Telemetry Event Monitor (06/27/2023 3:42 PM ULTRASOUND TECHNOLOGIST SONOGRAPHER) Anatomical Region Laterality Modality Other Narrative 08/01/2023 7:25 PM ULTRASOUND TECHNOLOGIST SONOGRAPHER Images from the original result were not included. AMBULATORY PATTERN REPAIR PERSON REPORT Patient Name: Lisa Allen Date of : 1945 ?? Requesting Physician: ?? Mesfin Rosenthal MD Date of interpretation: 08/01/23 Type of monitor : ?? 30 day microscopist Date of the study/Enrollment period: June 27, [...] sinus rhythm without ectopy. Dania Rosenthal MD, [facility] 08/01/23 Voice recognition software was used to complete this document, therefore, cold work operator variances may occur. Procedure Note Mesfin Rosenthal MD - 08/01/2023 Images from the original note were not included. AMBULATORY PATTERN REPAIR PERSON REPORT Patient Name: Lisa Allen Date of : 1945 Requesting Physician: Mesfin Rosenthal MD Date of interpretation: 08/01/23 Type of monitor : 30 day microscopist Date of the study/Enrollment period: June 27, [...] sinus rhythm without ectopy. Dania Rosenthal MD, [facility] 08/01/23 Voice recognition software was used to complete this document, therefore,cold work operator variances may occur. Mesfin Rosenthal MD [facility] PROC EDURES Final Result documented in this encounter Visit Diagnoses Diagnosis Syncope, unspecified syncope type Seizure (HCC) Other convulsions Bradycardia Other specified cardiac dysrhythmias documented in this encounter Care Teams Returned Item Clerk Relationship Specialty Start Date End Date Servando Trore MD [address] [facility] [address] [place] [address] PCP - General Family Medicine 06/19/22 Mariela Denton MD [address] [facility] [address] [place] [address] Referring Physician Gastroenterology 06/19/22 Lexis Barroso OD [address] [place] [address] Peoplesoft Crm Developer 09/19/22 documented as of this encounter
--- OUTSIDE RECORDS SUMMARY | 2024-07-15 17:38 | XMS_ITS | Encounter Summary ---
Author Organization [facility] Healthcare Address [address] [place] [address] Care Team Providers Care I&C Tech Name Role Phone Servando Torre MD Primary Care Provider [phone]- [phone] Mariela Denton MD Unavailable [phone] [phone] Lexis Barroso OD Unavailable +1- [phone] Reason for Visit * Reason Onset Date Comments Call about jumbled speech and vomiting 3 Encounter Details Date Type Department Care Team (Late st Contact Info) Description 06/03/2023 Telephone [facility] Medical Group Primary Care at [address] [address] Servando Torre MD [address] [place] [address] [address] [place] [address] Call about jumbled speech and [...] on file Legal Sex Female 9:30 AM CONTACT CENTER REPRESENTATIVE Gender Identity Female 04/05/2022 6:17 PM [...] patient to the ER for further evaluation. ACT CENTER REPRESENTATIVE documented in this encounter Plan of Treatment Not on file documented as of this encounter Visit Diagnoses Not on filedocumented in this encounter Care Teams I&C Tech Relationship Specialty Start Date End Date Servando Torre MD [address] [address] PCP - General Family Medicine 06/19/22 Mariela Denton MD [address] [place] [address] Referring Physician Gastroenterology 06/19/22 Lexis Barroso OD [address], [place] [address] Screen Operator 09/19/22 documented as of this encounter
--- OUTSIDE RECORDS SUMMARY | 2024-07-15 17:38 | XMS_ITS | Encounter Summary ---
Author Organization [facility] Address [address] [place] [address] Phone Care Team Providers Care Diagnostic Radiologist Name Role Phone Servando Torre MD Primary Care Provider [phone] [phone] Mariela Denton MD Unavailable [phone] [phone] Lexis Barroso OD Unavailable +1- [phone] Encounter Details Date Type Department Care Team (Late st Contact Info) Description 07/14/2023 Telephone [facility] Epilepsy [address] [facility] 6th [place] [address] [place] [address] Adria Burleson MD [address] [facility] [address] [place] [address] Social History Tobacco Use Types [...] on file Legal Sex Female 9:30 AM GROUP PRODUCT MANAGER Gender Identity Female 04/05/2022 6:17 PM CDT Sexual Orientation Straight 04/05/2022 6: 17 PM CDT documented as of this encounter Miscellaneous Notes * Telephone Encounter - Sherita Licona RN - 07/15/2023 7:25 AM GROUP PRODUCT MANAGER Crispy Gamerhart message was reviewed. P PRODUCT MANAGER * Telephone Encounter - Sherita Licona RN - 07/14/2023 1:53 PM GROUP PRODUCT MANAGER Sent Shelfie message informing patient that there were no structual abnormalities to explain seizure events. P PRODUCT MANAGER * Telephone Encounter - Sherita Licona RN - 07/14/2023 11:13 AM GROUP PRODUCT MANAGER ----- Message from Adria Diop MD sent at 07/14/2023 10:59 AM GROUP PRODUCT MANAGER ----- Dear Sherita Can we update family? TY IMPRESSION: No MRI evidence to explain the patient's seizures. ----- Message ----- From: Interface, Radiology Results In Sent: 07/11/2023 4:19 PM GROUP PRODUCT MANAGER To: Adria Diop MD P PRODUCT MANAGER P PRODUCT MANAGER documented in this encounter Plan of Treatment Not on file documented as of this encounter Visit Diagnoses Not on filedocumented in this encounter Care Teams Diagnostic Radiologist Relationship Specialty Start Date End Date Servando Torre MD [address] [facility] [address] [place] [address] PCP - General Family Medicine 06/19/22 Mariela Denton MD [address] [facility] [address] [place] [address] Referring Physician Gastroenterology 06/19/22 Lexis Barroso OD [address] [place] [address] Tune Up Mechanic 09/19/22 documented as of this encounter
--- OUTSIDE RECORDS SUMMARY | 2024-07-15 17:38 | XMS_ITS | Encounter Summary ---
Author Organization [facility] Healthcare Address [address] [place] [address] Care Team Providers Care Metals Analyst Name Role Phone Servando Torre MD Primary Care Provider Mariela Denton MD Unavailable +1 -[phone] Lexis Barroso OD Unavailable +1- [phone] Reason for Visit * Reason Onset Date Comments Paperwork to be filled out 07/17/2023 Encounter Details Date Type Department Care Team (Late st Contact Info) Description 07/17/2023 Telephone [facility] Medical Group Primary Care at [address] [address] Servando Torre MD [address] [place] [address] [address] [place] [address] Paperwork to be filled out [...] on file Legal Sex Female 9:30 AM TRANSPORTATION SERVICES REPRESENTATIVE Gender Identity Female 04/05/2022 6:17 PM CDT Sexual Orientation Straight 04/05/2022 6: 17 PM CDT documented as of this encounter Miscellaneous Notes * Telephone Encounter - Regina Loo MA - 07/18/2023 10:59 AM TRANSPORTATION SERVICES REPRESENTATIVE Forms completed and pt granddasha Duarte notified, forms placed at check in desk SPORTATION SERVICES REPRESENTATIVE * Telephone Encounter - Regina Loo MA - 07/17/2023 10:40 AM TRANSPORTATION SERVICES REPRESENTATIVE Physician Assessment Certification form received and placed on Dr Torre's desk SPORTATION SERVICES REPRESENTATIVE * Telephone Encounter - David Everett - 07/17/2023 9:27 AM CST Pt wilma Duarte came in and dropped off papers that need to be filled out. She would like a call to pick them up when they are filled out. She can be reached at [phone] SPORTATION SERVICES REPRESENTATIVE documented in this encounter Plan of Treatment Not on file documented as of this encounter Visit Diagnoses Not on filedocumented in this encounter Care Teams Metals Analyst Relationship Specialty Start Date End Date Servando Torre MD [address] [address] PCP - General Family Medicine 06/19/22 Mariela Denton MD [address] [place] [address] Referring Physician Gastroenterology 06/19/22 Lexis Barroso OD [address] [address] Business Reporting Developer 09/19/22 documented as of this encounter
--- OUTSIDE RECORDS SUMMARY | 2024-07-15 17:38 | XMS_ITS | Encounter Summary ---
Author Organization [facility] Address [address] [place] [address] Phone Care Team Providers Care Director Of Health Education Name Role Phone Servando Trore MD Primary Care Provider +1 [phone] Mariela Denton MD Unavailable [phone] [phone] Lexis Barroso OD Unavailable +1- [phone] Encounter Details Date Type Department Care Team (Late st Contact Info) Description 06/18/2023 Orders Only [facility] Gastroenterology [facility] Building [address] [place] [address] Mayra Zelaya, CONSTANZA [address] [place] [address] High risk medications (not anticoagulants) [...] on file Legal Sex Female 9:30 AM OBIEE CONSULTANT Gender Identity Female 04/05/2022 6:17 PM [...] Portal with lab order and instructions sent E CONSULTANT documented in this encounter Miscellaneous Notes * Addendum Note - Link Gomez - 06/18/2023 11:35 AM CSTAddended by: LINK GOMEZ on: 07/24/2023 12:32 PM Modules accepted: Orders E CONSULTANT documented in this encounter Plan of Treatment Not on file documented as of this encounter Results * (ABNORMAL) Thiopurine metabolites (07/24/2023 12:36 PM OBIEE CONSULTANT) 6-TG, bld 214(L) 235 - 450 [facility] (ANTWON) Comment: Decreased possibility of response; suboptimal dosing or noncompliance. 6-MMP, bld 2241 < or = 5700 AILEEN RODRIGUEZ (ANDREWS) Comment: Decreased risk of hepatotoxicity. ADDITIONAL INFORMATION Testing performed by Liquid Chromatography-Tandem Mass Spectrometry (LC-MS/MS) This test was developed and its performance characteristics determined by [facility] in a manner consistent with CLIA requirements. This test has not been cleared or approved by the U.S. Food and Drug Administration. Test Performed by: [facility] - [facility] [address] [place] [address] Tram Inspector: Holden Redman M.D. Ph.D.; CLIA# [id number] Blood 07/24/2023 12:3 6 PM OBIEE CONSULTANT 07/24/2023 12:41 PM OBIEE CONSULTANT Josué Cook MD LAB BLOOD ORDERABLES F inal Result AILEEN RODRIGUEZ (ANDREWS) 1 [facility] Department [place] [address] documented in this encounter Visit Diagnoses Diagnosis [...] documented as of this encounter Care Teams Director Of Health Education Relationship Specialty Start Date End Date Servando Torre MD [address] [address] PCP - General Family Medicine 06/19/22 Mariela Denton MD [address] [place] [address] Referring Physician Gastroenterology 06/19/22 Lexis Barroso OD [address] [place] [address] Horse Rider 09/19/22 documented as of this encounter
--- OUTSIDE RECORDS SUMMARY | 2024-07-15 17:38 | XMS_ITS | Encounter Summary ---
Author Organization [facility] Address [address] [place] [address] Phone Care Team Providers Care Inspector Machine Parts Name Role Phone Servando Torre MD Primary Care Provider +1 [phone] Mariela Denton MD Unavailable +1 [phone] Lexis Barroso OD Unavailable +1- [phone] Encounter Details Date Type Department Care Team (Late st Contact Info) Description 05/16/2023 9:00 AM CDT Office Visit [facility] Gastroenterology [address] [facility] 12th [place] [address] [place] [address] Mayra Zelaya, CONSTANZA [address] [place] [address] Ulcerative pancolitis without complication (CMS/HCC) (HCC) (Primary [...] on file Legal Sex Female 9:30 AM COMMUNITY HEALTH AGENT Gender Identity Female 04/05/2022 6:17 PM [...] in the rectosigmoid colon. Her 6TG 293 [id number] 2999 on Azathioprine 100mg daily on 05/30/2022 [...] created in part with the assistance of [employer] voice recognition software. Bolt Loader variances may occur. documented in this encounter Plan of Treatment Not on file documented as of this encounter Visit Diagnoses Diagnosis Ulcerative pancolitis without complication (CMS/HCC) (HCC)- Primary Elevated liver enzymes Other nonspecific abnormal serum enzyme levels Follow-up examination following treatment with high-risk medication Follow-up examination following completed treatment with high-risk medications, not elsewhere classified documented in this encounter Care Teams Inspector Machine Parts Relationship Specialty Start Date End Date Servando Torre MD [address] [address] PCP - General Family Medicine 06/19/22 Mariela Denton MD [address] [place] [address] Referring Physician Gastroenterology 06/19/22 Lexis Barroso OD [address] [place] [address] Armature Repairer 09/19/22 documented as of this encounter
--- OUTSIDE RECORDS SUMMARY | 2024-07-15 17:38 | XMS_ITS | Encounter Summary ---
Author Organization [facility] Address [address] [place] [address] Phone Care Team Providers Care Pole Climber Name Role Phone Servando Torre MD Primary Care Provider +1 [phone] Mariela Denton MD Unavailable [phone] [phone] Lexis Barroso OD Unavailable +1- [phone] Encounter Details Date Type Department Care Team (Late st Contact Info) Description 07/04/2023 Telephone [place] [address] [facility] First Floor [address] [place] [address] Eileen Hernandez, RN Social History [...] on file Legal Sex Female 9:30 AM LIFE SKILLS COORDINATOR VOLUNTEER Gender Identity Female 04/05/2022 6:17 PM CDT Sexual Orientation Straight 04/05/2022 6: 17 PM CDT documented as of this encounter Miscellaneous Notes * Telephone Encounter - Eileen Hernandez RN - 07/04/2023 3:56 PM LIFE SKILLS COORDINATOR VOLUNTEER Daughter Aby is calling concerned about patients [...] the edge off her anxiety. Please advise. SKILLS COORDINATOR VOLUNTEER documented in this encounter Plan of Treatment Not on file documented as of this encounter Visit Diagnoses Not on filedocumented in this encounter Care Teams Pole Climber Relationship Specialty Start Date End Date Servando Torre MD [facility] [address] PCP - General Family Medicine 06/19/22 Mariela Denton MD [address] [place] [address] Referring Physician Gastroenterology 06/19/22 Lexis Barroso OD [address] [place] [address] Brake Repairer 09/19/22 documented as of this encounter
--- OUTSIDE RECORDS SUMMARY | 2024-07-15 17:38 | XMS_ITS | Encounter Summary ---
Author Organization [facility] Address [address] [place] [address] Phone Care Team Providers Care Loan Specialist Name Role Phone Servando Torre MD Primary Care Provider +1 [phone] Mariela Denton MD Unavailable +1 [phone] Lexis Barroso OD Unavailable +1- [phone] Encounter Details Date Type Department Care Team (Late st Contact Info) Description 06/09/2023 Telephone [facility] Epilepsy [address] [facility] 6th [place] [address] [place] [address] Adria uBrleson MD [address] [facility] [address] [place] [address] Social History Tobacco Use Types [...] on file Legal Sex Female 9:30 AM HUMAN RESOURCES RECORDS CLERK Gender Identity Female 04/05/2022 6:17 PM CDT Sexual Orientation Straight 04/05/2022 6: 17 PM CDT documented as of this encounter Miscellaneous Notes * Telephone Encounter - Sherita Licona RN - 06/09/2023 2:26 PM HUMAN RESOURCES RECORDS CLERK Spoke with Aby. Relayed Dr. Anthony's response. Verbalized understanding. She will keep our office updated and let us know if Lisa has any further symptoms/seizure events. N RESOURCES RECORDS CLERK * Telephone Encounter - Sherita Licona RN - 06/09/2023 8:44 AM HUMAN RESOURCES RECORDS CLERK Aby Johansen called with an update. She reports that Lisa was admitted to [facility] on Friday and discharged Friday afternoon. [...] they are getting ready to travel to [place] on Friday. Any reasons why they should not travel with [place] at this time? Lisa is going to follow up with PCP on Friday. They will discuss providing a new UA to see if UTI has completely resolved. Any recommendations at this time? Thanks~Sherita AED: LTG 100 mg bid N RESOURCES RECORDS CLERK documented in this encounter Plan of Treatment Not on file documented as of this encounter Visit Diagnoses Not on filedocumented in this encounter Discontinued Medications Medication Sig Discontinue Reason Start Date End Da te levETIRAcetam (KEPPRA) 500 mg tablet Take 1 tablet (500 mg total) by mouth 2 (two) times a day 03/17/2023 06/09/2023 documented as of this encounter Care Teams Loan Specialist Relationship Specialty Start Date End Date Servando Torre MD [facility] [address] PCP - General Family Medicine 06/19/22 Mariela Denton MD [facility] [address] [place] [address] Referring Physician Gastroenterology 06/19/22 Lexis Barroso OD [address] [place] [address] Gym Attendant 09/19/22 documented as of this encounter
--- OUTSIDE RECORDS SUMMARY | 2024-07-15 17:38 | XMS_ITS | Encounter Summary ---
Author Organization [facility] Healthcare Address [address] [place] [address] Care Team Providers Care Account Manager Sales Representative Name Role Phone Servando Torre MD Primary Care Provider Mariela Denton MD Unavailable [phone] [phone] Lexis Barroso OD Unavailable +1- [phone] Encounter Details Date Type Department Care Team (Late st Contact Info) Description 07/02/2023 Orders Only [facility] Medical Group Primary Care at [address] [address] Servando Torre MD [address] [place] [address] [address] [place] [address] Social History Tobacco Use Types [...] on file Legal Sex Female 9:30 AM HEAVY EQUIPMENT SALES ASSOCIATE Gender Identity Female 04/05/2022 6:17 PM [...] on filedocumented in this encounter Care Teams Account Manager Sales Representative Relationship Specialty Start Date End Date Servando Torre MD [facility] [address] PCP - General Family Medicine 06/19/22 Mariela Denton MD [address] [place] [address] Referring Physician Gastroenterology 06/19/22 Lexis Barroso OD [address] [place] [address] Camera Person 09/19/22 documented as of this encounter
--- OUTSIDE RECORDS SUMMARY | 2024-07-15 17:38 | XMS_ITS | Encounter Summary ---
Author Organization [facility] Healthcare Address [address] [place] [address] Care Team Providers Care Dough Scaler And Mixer Name Role Phone Servando Torre MD Primary Care Provider [phone] Mariela Denton MD Unavailable +1 -[phone] Lexis Barroso OD Unavailable +1- [phone] Reason for Visit * Reason Onset Date Comments CHRISTELLE Questions 06/06/2023 Encounter Details Date Type Department Care Team (Late st Contact Info) Description 06/06/2023 Telephone [facility] Medical Group Primary Care at [address] [address] Servando Torre MD [address] [place] [address] [address] [place] [address] CHRISTELLE Questions Social History Tobacco [...] on file Legal Sex Female 9:30 AM SEALER DRY CELL Gender Identity Female 04/05/2022 6:17 PM CDT Sexual Orientation Straight 04/05/2022 6: 17 PM CDT documented as of this encounter Miscellaneous Notes * Telephone Encounter - Regina Loo MA - 06/09/2023 9:16 AM SEALER DRY CELL Spoke to pt daughter Aby, informed her that the pt can take Pravastain, Aby voiced understanding. Aby would also like a urine test for pt when she comes in for an appointment on 06/11/23 ER DRY CELL * Telephone Encounter - Rhonda Olivas - 06/06/2023 3:42 PM CST CHRISTELLE Questions (Message from [facility]-Director [place]): Has patient been discharged at time of call? Yes Date Admitted: 06/03 Date Discharged: 06/06 Facility Admitted To: [facility] Reason for Stay? Admitted for possible stroke, [...] message need to be routed? Yes-Action Needed ER DRY CELL documented in this encounter Plan of Treatment Not on file documented as of this encounter Visit Diagnoses Not on filedocumented in this encounter Care Teams Dough Scaler And Mixer Relationship Specialty Start Date End Date Servando Torre MD [address] [facility] [address] [place] [address] PCP - General Family Medicine 06/19/22 Mariela Denton MD [address] [place] [address] Referring Physician Gastroenterology 06/19/22 Lexis Barroso OD [address] [place] [address] Wax Pot Tender 09/19/22 documented as of this encounter
--- OUTSIDE RECORDS SUMMARY | 2024-07-15 17:38 | XMS_ITS | Encounter Summary ---
Author Organization [facility] Address [address] [place] [address] Phone Care Team Providers Care Treatment Coordinator Name Role Phone Servando Torre MD Primary Care Provider +1 [phone] Mariela Denton MD Unavailable + -[phone] Lexis Barroso OD Unavailable +1- [phone] Reason for Visit * Reason Onset Date Comments Plan from [facility] on 05/16/23 05/28/2023 Encounter Details Date Type Department Care Team (Late st Contact Info) Description 05/28/2023 Documentation [facility] Gastroenterology [address] [facility] 12th [place] [address] [place] [address] Lexis Renteria, ELMO Plan from [facility] on 05/16/23 Social History Tobacco Use Types [...] on file Legal Sex Female 9:30 AM OFFSET LITHOGRAPHIC PRESS OPERATOR Gender Identity Female 04/05/2022 6:17 PM [...] on filedocumented in this encounter Care Teams Treatment Coordinator Relationship Specialty Start Date End Date Servando Torre MD [address] [address] PCP - General Family Medicine 06/19/22 Mariela Denton MD [address] [place] [address] Referring Physician Gastroenterology 06/19/22 Lexis Barroso OD [address], [place] [address] Senior It Specialist 09/19/22 documented as of this encounter
--- OUTSIDE RECORDS SUMMARY | 2024-07-15 17:38 | XMS_ITS | Encounter Summary ---
Author Organization [facility] Healthcare Address [address] [place] [address] Care Team Providers Care Director Of Conservation Name Role Phone Servando Torre MD Primary Care Provider Mariela Denton MD Unavailable [phone] [phone] Lexis Barroso OD Unavailable +1- [phone] Reason for Visit * Reason Comments CHRISTELLE Admitted for possibl e stroke, or seizure from epilepsy, UTI wanted to take her off pravastatin and switch to rosuvastatin Encounter Details Date Type Department Care Team (Late st Contact Info) Description 06/11/2023 1:30 PM PRECINCT POLICE SERGEANT Office Visit [facility] Medical Group Primary Care at [address] [address] Servando Torre MD [address] [place] [address] [address] [place] [address] Hospital discharge follow-up (Primary Dx); [...] on file Legal Sex Female 9:30 AM PRECINCT POLICE SERGEANT Gender Identity Female 04/05/2022 6:17 PM CDT Sexual Orientation Straight 04/05/2022 6: 17 PM CDT documented as of this encounter Last Filed Vital Signs Vital Sign Reading Time Taken Comments Blood Pressure 130/86 06/11/2023 1:44 PM PRECINCT POLICE SERGEANT Pulse 91 06/11/2023 1:44 PM PRECINCT POLICE SERGEANT Temperature 36.8 ??C (98.3 ??F) 06/11/2023 1:44 PM CS T Respiratory Rate 18 06/11/2023 1:44 PM PRECINCT POLICE SERGEANT Oxygen Saturation 95% 06/11/2023 1:44 PM PRECINCT POLICE SERGEANT Inhaled Oxygen Concentration - - Weight 68.7 kg (151 lb 8 oz) 06/11/2023 1:44 PM PRECINCT POLICE SERGEANT Height 157.5 cm (5' 2 ) 06/11/2023 1:44 PM PRECINCT POLICE SERGEANT Body Mass Index 27.71 06/11/2023 1:44 PM PRECINCT POLICE SERGEANT documented in this encounter Patient Instructions * Patient Instructions* Servando Torre MD - 06/11/2023 1:30 PM PRECINCT POLICE SERGEANT Empiric antibiotics give there may still be infection present Continue current regimen otherwise Continue good efforts to stay hydrated, drink water Thanks for coming in today! My medical assistants and I are thankful you have trusted us with your care, and hope that you received EXCELLENT care today! Please do not hesitate to call if you have any questions or concerns at [phone]. You may receive a phone call, text, MYCHART message, or e-mail asking about your care today. We would love to hear your feedback on how EXCELLENT your care wastoday! Wishing you better health, always. Dr. Torre INCT POLICE SERGEANT documented in this encounter Ordered Prescriptions Prescription [...] at: [facility] ([facility] order in Epic under [...] been provided to and reviewed with the patient/childcare administrator prior to discharge. IServando MD have personally reviewed pertinent Hospital/ER data including [employer] andCare Everywhere if available. This patient's discharge medication list has been reviewed and reconciled with her medication list in the office chart and has also been reviewed with patient and/or caregiver. I have noted any changes. Servando Torre MD INCT POLICE SERGEANT documented in this encounter Miscellaneous Notes * Assessment & Plan Note - Servando Torre MD - 06/11/2023 1:42 PM PRECINCT POLICE SERGEANT Associated Problem(s): Hospital discharge follow-up (Resolved 08/07/2023) I have reviewed the hospital record, medications, and relevant testing from Lisa Allen's recent admission. Complications and discharge plan have been noted, reviewed. Post-discharge testing has been ordered. INCT POLICE SERGEANT documented in this encounter Plan of Treatment Not on file documented as of this encounter Procedures Procedure Name Priority Date/Time Associated Diagnosis Comments POCT URINALYSIS, AUTO W/O SCOPE Routine 06/11/2023 2:26 PM PRECINCT POLICE SERGEANT UTI symptoms documented in this encounter Results * (ABNORMAL) POCT UA, AUTO W/O SCOPE (06/11/2023 2:26 PM PRECINCT POLICE SERGEANT) Color, Urine, POC Yellow Clarity, ur, POC Clear Clear Glucose, ur, POC Negative Negative MG/DL Bilirubin, ur, POC Negative Negative, Small, Moderate, Large Ketones, ur, POC Negative Negative Specific [place], POC 1.015 1.003 - 1.030 Blood, ur, POC Trace(A) Negative pH, ur, POC 7.0 5.0 - 8.0 Protein, ur, POC Negative Negative Urobilinogen, Urine, POC 0.2 mg/dL Leukocytes, ur, POC Trace(A) Negative Nitrite, ur, POC Negative Negative Appearance, fld Clear Clear Urine, clean voided 06/11/2023 2:26 PM PRECINCT POLICE SERGEANT Servando Torre MD POINT OF CARE TEST ORDERABL ES Final Result * Urine culture Urine, clean voided (06/11/2023 2:26 PM PRECINCT POLICE SERGEANT) Report Final Report: Less than 100,000 colonies/mL (clinically insignificant growth based on current clinical standards) AILEEN MATTHEW Comment:Testing performed by : [facility], [address] [place]., [address] Organism (CLINICALLY INSIGNIFICANT GROWTH AILEEN Urine, clean voided 06/11/2023 2:26 PM PRECINCT POLICE SERGEANT 06/12/2023 12:13 PM PRECINCT POLICE SERGEANT Narrative AILEEN MATTHEW - 06/13/2023 5:28 PM PRECINCT POLICE SERGEANT Testing performed by [facility] Microbiology Laboratory ([phone]) Servando Torre MD LAB MICROBIOLOGY - GENERAL ORDERABLES Final Result Performing Organization Address City/State/ZIP [place] Phone Number AILEEN [address] [address] Department [place] [address] documented in this encounter Visit [...] 06/11/2023 documented in this encounter Care Teams Director Of Conservation Relationship Specialty Start Date End Date Servando Torre MD [facility] [address] PCP - General Family Medicine 06/19/22 Mariela Denton MD [facility] [address] [place] [address] Referring Physician Gastroenterology 06/19/22 Lexis Barroso OD [address] [place] [address] Corner Brace Block Machine Operator 09/19/22 documented as of this encounter
--- OUTSIDE RECORDS SUMMARY | 2024-07-15 17:38 | XMS_ITS | Encounter Summary ---
Author Organization [facility] Healthcare Address [address] [place] [address] Care Team Providers Care Community Educator Name Role Phone Servando Torre MD Primary Care Provider Mariela Denton MD Unavailable [phone] [phone] Lexis Barroso OD Unavailable +1- [phone] Reason for Visit * Reason Onset Date Comments call back for diagnosis code 06/25/2023 Encounter Details Date Type Department Care Team (Late st Contact Info) Description 06/25/2023 Telephone [facility] Medical Group Primary Care at [address] [address] Servando Torre MD [address] [place] [address] [address] [place] [address] call back for diagnosis code [...] on file Legal Sex Female 9:30 AM DEAD MAIL CHECKER Gender Identity Female 04/05/2022 6:17 PM CDT Sexual Orientation Straight 04/05/2022 6: 17 PM CDT documented as of this encounter Miscellaneous Notes * Telephone Encounter - Regina Loo MA - 06/30/2023 12:22 PM DEAD MAIL CHECKER Called and spoke to the pt eliseo Alvares, she stated that the pt is taking Lamotrigine remazures. Called and spoke to Aby at [facility], informed Aby that the pt is taking Lamotrigine, she voiced understanding MAIL CHECKER * Telephone Encounter - Regina Loo MA - 06/30/2023 11:38 AM DEAD MAIL CHECKER Spoke to Aby from [facility], Aby stated that she spoke to the pt daughter Aby, the daughter stated to Aby from [facility] that the pt is not taking Lamotrigine. I informed Aby from [facility] that the pt was seen on 06/26/23 and the medications were verified and the pt did not mention she was not taking Lamotrigine and the medication was just filled on 06/24/23 by Adria Quinteros Si. I informed Aby from [facility] that I will call and speak to the pt daughter Aby and call her back with information. Aby from [facility] voiced understanding. Called and spoke to pt daughter Aby, Aby stated she was not for sure if the pt is taking Lamotrigine, Jacques is going to call her daughter Dia to verify pt medication and will send a my chart message. MAIL CHECKER * Telephone Encounter - Shelia Cobb - 06/27/2023 4:19 PM CST Call Back Caller???s Concern: Aby is calling needing to speak with Regina again regarding getting a verbalorder and CS attempted to call office 2x and did not get an answer. Please follow up Does message need to be routed? Yes-Action Needed MAIL CHECKER * Telephone Encounter - Pamela Silveira - 06/27/2023 4:13 PM CST Call Back Caller???s Concern: Aby is calling back to follow up. She states she was needing patients updated med list faxed over. She states she called earlier to confirm that patient was no longer taking the lamotrigine so that it could be taken off med list. Fax number is [phone] Does message need to be routed? Yes-Action Needed MAIL CHECKER * Telephone Encounter - Regina Toscano MA - 06/27/2023 11:04 AM DEAD MAIL CHECKER FYI MAIL CHECKER * Telephone Encounter - Denise October - 06/27/2023 10:57 AM CST Call Back Caller???s Concern: Mackenzie called back and stated that the pt no longer takes the medication / please call her back if needed Does message need to be routed? Yes-FYI Only MAIL CHECKER * Telephone Encounter - Regina Loo MA - 06/26/2023 4:57 PM DEAD MAIL CHECKER Called [facility] and spoke to Mackenzie, Mackenzie [...] note to be faxed after addendum to Morena at [facility] #[phone] MAIL CHECKER * Telephone Encounter - David Everett - 06/25/2023 2:44 PM CST [facility] called and they are needing the diagnosis for a few medications. She alsoneeds the diagnosis with cognitive and mobility issues. She would like a call back today if possible as she needs to get this done SHIRA. She can be reached at [phone]. MAIL CHECKER documented in this encounter Plan of Treatment Not on file documented as of this encounter Visit Diagnoses Not on filedocumented in this encounter Care Teams Community Educator Relationship Specialty Start Date End Date Servando Torre MD [facility] [address] [address] PCP - General Family Medicine 06/19/22 Mariela Denton MD [facility] [address] [place] [address] Referring Physician Gastroenterology 06/19/22 Lexis Barroso OD [address] [place] [address] Cocoa Milling Machine Operator 09/19/22 documented as of this encounter
--- OUTSIDE RECORDS SUMMARY | 2024-07-15 17:38 | XMS_ITS | Encounter Summary ---
Author Organization [facility] Healthcare Address [address] [place] [address] Care Team Providers Care Dispatcher Service Name Role Phone Servando Torre MD Primary Care Provider [phone] Mariela Denton MD Unavailable [phone] [phone] Lexis Barroso OD Unavailable [phone]- [phone] Encounter Details Date Type Department Care Team (Late st Contact Info) Description 07/01/2023 3:15 PM CABLE TELEVISION INSTALLER Lab [facility] Medical Group Outpatient Lab at [address] [address] Social History Tobacco Use Types [...] on file Legal Sex Female 9:30 AM CABLE TELEVISION INSTALLER Gender Identity Female 04/05/2022 6:17 PM CDT Sexual Orientation Straight 04/05/2022 6: 17 PM CDT documented as of this encounter Plan of Treatment Not on file documented as of this encounter Visit Diagnoses Not on filedocumented in this encounter Care Teams Dispatcher Service Relationship Specialty Start Date End Date Servando Torre MD [address] [facility] [address] [place] [address] PCP - General Family Medicine 06/19/22 Mariela Denton MD [address] [place] [address] Referring Physician Gastroenterology 06/19/22 Lexis Barroso OD [address] [place] [address] Geodetic Surveyor 09/19/22 documented as of this encounter
--- OUTSIDE RECORDS SUMMARY | 2024-07-15 17:38 | XMS_ITS | Encounter Summary ---
Author Organization [facility] Healthcare Address [address] [place] [address] Care Team Providers Care Knifer Up Name Role Phone Servando Torre MD Primary Care Provider Mariela Denton MD Unavailable [phone] Lexis Barroso OD Unavailable [phone]- [phone] Encounter Details Date Type Department Care Team (Latest Contact Info) Description 06/11/2023 2:26 PM CEPHALOMETRIC TRACER - 06/11/2023 11:59 PM CEPHALOMETRIC TRACER Hospital Encounter [facility] [address] [place] [address] UTI symptoms Discharge Disposition: Discharge to [...] on file Legal Sex Female 9:30 AM CEPHALOMETRIC TRACER Gender Identity Female 04/05/2022 6:17 PM [...] catheter every 8 (eight) weeks Infused at: [facility] ([facility] order in [facility] under 'Procedures' tab). 1 each 5 04/29/2023 metFORMIN XR (GLUCOPHAGE XR) 750 mg 24 hr tablet Take 1 tablet (750 mg total) by mouth daily with breakfast 30 tablet 11 05/16/2023 acetaminophen (acetaminophen Extra Strength) 500 mg tablet Take 1 tablet (500 mg total) by mouth every 6 (six) hours as needed 09/30/2022 4 nitrofurantoin monohydrate (MACROBID) 100 mg capsuleIndications :UTI symptoms Take 1 capsule (100 mg total) by mouth 2 (two) times a day for 7 days 14 capsule 06/11/2023 3 acetaminophen-code ine (TYLENOL with CODEINE #3) 300-30 [...] Comments URINE CULTURE Routine 06/11/2023 2:26 PM CEPHALOMETRIC TRACER UTI symptoms documented in this encounter Results * Urine culture Urine, clean voided (06/11/2023 2:26 PM CEPHALOMETRIC TRACER) Report Final Report: Less than 100,000 colonies/mL (clinically insignificant growth based on current clinical standards) AILEEN Comment:Testing performed by : [facility], [address] [place]., [address] Organism (CLINICALLY INSIGNIFICANT GROWTH AILEEN Urine, clean voided 06/11/2023 2:26 PM CEPHALOMETRIC TRACER 06/12/2023 12:13 PM CEPHALOMETRIC TRACER Narrative AILEEN - 06/13/2023 5:28 PM CEPHALOMETRIC TRACER Testing performed by [facility] Microbiology Laboratory ([phone]) us Servando Torre MD LAB MICROBIOLOGY - GENERAL ORDERABLES Final Result [facility] [address] [place] [address] documented in this encounter Visit Diagnoses Diagnosis UTI symptoms documented in this encounter Care Teams Knifer Up Relationship Specialty Start Date End Date Servando Torre MD [facility] [address] [place] [address] PCP - General Family Medicine 06/19/22 Mariela Denton MD [address] [place] [address] Referring Physician Gastroenterology 06/19/22 Lexis Barroso OD [address] [place] [address] Car Lot Attendant 09/19/22 documented as of this encounter
--- OUTSIDE RECORDS SUMMARY | 2024-07-15 17:38 | XMS_ITS | Encounter Summary ---
Author Organization [facility] Healthcare Address [address] [place] [address] Care Team Providers Care Machine Leather Trimmer Name Role Phone Servando Torre MD Primary Care Provider [phone] Mariela Denton MD Unavailable [phone] Lexis Barroso OD Unavailable [phone]- [phone] Reason for Referral * MRI/CAT/PET Scan (Routine) - Closed Specialty Diagnoses / Procedures Referred By Contac t Referred To Contact Radiology Diagnoses Seizure (HCC) Procedures MRI Brain WO Contrast Adria Burleson MD [address] [address] Phone: tel: fax: [address] [address] Referral ID Status Reason Start Date Expiration Date Visits Re quested Visits Authorized [id number] Closed 06/24/2023 07/23/2024 1 1 WORKER Reason for Visit * MRI/CAT/PET Scan (Routine) - Closed Specialty Diagnoses / Procedures Referred By Contac t Referred To Contact Radiology Diagnoses Seizure (HCC) Procedures MRI Brain WO Contrast Adria Burleson MD [address] [address] Phone: tel: fax: [facility] [address] [place] [address] Referral ID Status Reason Start Date Expiration Date Visits Re quested Visits Authorized [id number] Closed 06/24/2023 07/23/2024 1 1 Encounter Details Date Type Department Care Team (Latest Contact Info) Description 07/11/2023 1:24 PM LOFT WORKER - 07/11/2023 11:59 PM LOFT WORKER Hospital Encounter [facility] Rad[facility] [address] [place] [address] Seizure (HCC) Discharge Disposition: Discharge to home [...] on file Legal Sex Female 9:30 AM LOFT WORKER Gender Identity Female 04/05/2022 6:17 PM [...] Read Routine (OP Routine) 07/11/2023 2:40 PM LOFT WORKER Seizure (HCC) documented in this encounter Results * MRI Brain WO Contrast (07/11/2023 2:40 PM LOFT WORKER) Anatomical Region Laterality Modality Head and Neck N/A Magnetic Resonan ce 07/11/2023 3:40 PM LOFT WORKER Impressions 07/11/2023 4:17 PM LOFT WORKER No MRI evidence to explain the patient's seizures. Dictated by: Marcell Cerna MD The radiology attending physician has personally reviewed this study, and had reviewed and/or edited this written report and agrees with it. Electronically signed by: Tino Rodriguez M.D. Ph.D. Narrative 07/11/2023 4:17 PM LOFT WORKER EXAMINATION: Magnetic resonance imaging (MRI) of the [...] convulsions documented in this encounter Care Teams Machine Leather Trimmer Relationship Specialty Start Date End Date Servando Torre MD [address] [facility] [address] [place] [address] PCP - General Family Medicine 06/19/22 Mariela Denton MD [address] [facility] [address] [place] [address] Referring Physician Gastroenterology 06/19/22 Lexis Barroso OD [address], [place] [address] Supervisor Filling And Packing 09/19/22 documented as of this encounter
--- OUTSIDE RECORDS SUMMARY | 2024-07-15 17:38 | XMS_ITS | Encounter Summary ---
Author Organization [facility] Healthcare Address [address] [place] [address] Care Team Providers Care Recreational Therapist Name Role Phone Servando Torre MD Primary Care Provider Mariela Denton MD Unavailable [phone] Lexis Barroso OD Unavailable [phone]- [phone] Reason for Visit * Reason Onset Date Comments Additional Services Or Orders 06/30/2023 Encounter Details Date Type Department Care Team (Late st Contact Info) Description 06/30/2023 Telephone [facility] Medical [facility] Primary Care at [address] [address] Servando Torre MD [address] [place] [address] [address] [place] [address] Additional Services Or Orders Social [...] message need to be routed? Yes-Action Needed P YARD WORKER * Addendum Note - Lydia Otto - 07/01/2023 3:30 PM CSTAddended by: LYDIA OTTO on: 07/01/2023 03:30 PM Modules accepted: Orders P YARD WORKER * Telephone Encounter - Regina Loo MA - 06/30/2023 12:02 PM SCRAP YARD WORKER Spoke to Kimmie from [facility], Kimmie stated that the pt blood pressure was 182/86 and the pt confusion is worse. Spoke to Dr Torre, per Dr Torre pt to increase Losartan to 50mg and have urine tested. Called and Spoke to pt eliseo Alvares, informed her of increase in Losartan and urine test.She voiced understanding Called and spoke to Kimmie from [facility] and informed her of medication increase and [...] pt is going to go outside of [facility] then let the office know and the order can be faxed. P YARD WORKER * Telephone Encounter - Britany Garcia - 06/30/2023 11:21 AM CST Medical Question/Miscellaneous Caller???s Concern: Kimmie wanting to speak with nurse about patients health, she has increased confusion and elevated blood pressure. Does message need to be routed? Yes-Action Needed P YARD WORKER documented in this encounter Plan of Treatment Not on file documented as of this encounter Results * (ABNORMAL) Urinalysis reflex to microscopic (07/01/2023 3:30 PM SCRAP YARD WORKER) Color, ur Yellow Yellow CERNER CH Clarity, [...] for uric acid stone formation. Source: [facility] Current Interpretive Data was last revised on [...] performed. CERNER CH Urine 07/01/2023 3:30 PM SCRAP YARD WORKER 07/01/2023 6:41 PM SCRAP YARD WORKER us Servando Torre MD LAB URINE ORDERABLES Final Result Performing Organization Address City/[facility] [address]/ZIP Co de Phone Number AILEEN TIFF [address] [address] [facility] [place] [address] * Urine culture Urine, clean voided (07/01/2023 3:30 PM SCRAP YARD WORKER) Report Final Report: Less than 100,000 colonies/mL (clinically insignificant growth based on current clinical standards) AILEEN MATTHEW Comment:Testing performed by : [facility], [address] [place]., [address] Organism (CLINICALLY INSIGNIFICANT GROWTH AILEEN Urine, clean voided 07/01/2023 3:30 PM SCRAP YARD WORKER 07/01/2023 9:57 PM SCRAP YARD WORKER Narrative AILEEN MATTHEW - 07/03/2023 8:11 AM SCRAP YARD WORKER Testing performed by [facility] Microbiology Laboratory ([phone]) us Servando Torre MD LAB MICROBIOLOGY - GENERAL ORDERABLES Final Result Performing Organization Address City/[facility] [address]/[facility] Co de Phone Number AILEEN MATTHEW [address] [address] [place] [place] [address] documented in this encounter Visit Diagnoses Diagnosis UTI symptoms- Primary UTI symptoms documented in this encounter Care Teams Recreational Therapist Relationship Specialty Start Date End Date Servando Torre MD [facility] [address] [address] PCP - General Family Medicine 06/19/22 Mariela Denton MD [address] [place] [address] Referring Physician Gastroenterology 06/19/22 Lexis Barroso OD [address] [place] [address] Nurse Esthetician 09/19/22 documented as of this encounter
--- OUTSIDE RECORDS SUMMARY | 2024-07-15 17:38 | XMS_ITS | Encounter Summary ---
Author Organization [facility] Healthcare Address [address] [place] [address] Care Team Providers Care Financial Specialist Name Role Phone Servando Torre MD Primary Care Provider [phone] Mariela Denton MD Unavailable [phone] Lexis Barroso OD Unavailable [phone]- [phone] Reason for Referral * Cardiology (Routine) - Closed Specialty Diagnoses / Procedures Referred By Angel braswell Referred To Contact Diagnoses Syncope, unspecified syncope type Seizure (HCC) Bradycardia Procedures MCT Mobile Cardiac Telemetry Event Monitor Mesfin Rosenthal MD Phone: tel: fax: [facility] Medical Group Referral ID Status Reason Start Date Expiration Date Visits Re quested Visits Authorized [id number] Closed 06/27/2023 07/26/2024 1 1 MENT ADVISOR Reason for Visit * Reason Comments New Patient Referred by Dr. David sr for syncope Seizures * Consultation (Routine) - Closed Specialty Diagnoses / Procedures Referred By Contclemencia t Referred To Contact Cardiology Diagnoses Syncope, unspecified syncope type Marixa San NP [address] [facility] [address] [place] [address] Phone: tel: fax: [facility] Medical Group Cardiology at [address] [place] [address] Phone: tel: fax: Referral ID Status Reason Start Date Expiration Date V isits Requested Visits Authorized [id number] Closed Specialty Services Required 03/06/2023 04/04/2024 1 1 Encounter Details Date Type Department Care Team (Latest Contact Info) Description 06/27/2023 11:15 AM DOCUMENT ADVISOR Office Visit [facility] Medical Group Cardiology at [address] [place] [address] Mesfin Rosenhtal MD [address] [facility] [address] [place] [address] Syncope, unspecified syncope type (Primary [...] on file Legal Sex Female 9:30 AM DOCUMENT ADVISOR Gender Identity Female 04/05/2022 6:17 PM CDT Sexual Orientation Straight 04/05/2022 6: 17 PM CDT documented as of this encounter Last Filed Vital Signs Vital Sign Reading Time Taken Comments Blood Pressure 160/82 06/27/2023 11:20 AM DOCUMENT ADVISOR Pulse 55 06/27/2023 11:20 AM DOCUMENT ADVISOR Temperature - - Respiratory Rate - - Oxygen Saturation 96% 06/27/2023 11:20 AM DOCUMENT ADVISOR Inhaled Oxygen Concentration - - Weight 68.6 kg (151 lb 3.2 oz) 06/27/2023 11:20 AM DOCUMENT ADVISOR Height 157.5 cm (5' 2 ) 06/27/2023 11:20 AM DOCUMENT ADVISOR Body Mass Index 27.65 06/27/2023 11:20 AM DOCUMENT ADVISOR documented in this encounter Progress Notes * [...] available records from Care everyw here from [place] to date. While I can not exclude significant tachy or more likely bradyarrhythmia I feel this is unlikely to have been a contributor to her initial episode from which workup revealed seizure disorder warranting treatment. We discussed the options at great length in this regard. To exclude potential contribution from a bradyarrhythmia 30 day site monitor has been advised. They verbalized understanding [...] normal sinus rhythm 62 beats per minute [place] 172milliseconds QRS 92 milliseconds QT corrected 419 [...] 06/27/23 Initial visit: On 01/30/23 while in [place] during family reunion had a seizure at 9600 ft elevation dx with suspected seizure in [place]. Brain MRI some spot noted unclear etiology [...] spells like initiallynoted. She had Echo in [place] and at [place]. No mention or issues of sig arrhythmias [...] OneTouch Delica Plus Lancet 33 gauge [facility] OneTouch Ultra Test strip pantoprazole DR (PROTONIX) [...] medical record, and bloodwork/lipids. Dania Rosenthal MD, [facility] This note is dictated and transcribed using [employer] Software. Clothing Busheler variancesmay occur. Despite proofreading, typographical errors may occur. MENT ADVISOR documented in this encounter Miscellaneous Notes * Addendum Note - Annemarie Bauman MA - 06/27/2023 11:15 AM CSTAddended by: ANNEMARIE BAUMAN on: 06/30/2023 11:33 AM Modules accepted: Orders MENT ADVISOR documented in this encounter Plan of Treatment Not on file documented as of this encounter Procedures Procedure Name Priority Date/Time Associated Diagnosis Comments ECG 12-LEAD Routine 06/27/2023 Syncope, unspecified syncope type Seizure (HCC) Bradycardia documented in this encounter Results * MCT Mobile Cardiac Telemetry Event Monitor (06/27/2023 3:42 PM DOCUMENT ADVISOR) Anatomical Region Laterality Modality Other Narrative 08/01/2023 7:25 PM DOCUMENT ADVISOR Images from the original result were not included. AMBULATORY WOODWIND INSTRUMENTS INSPECTOR REPORT Patient Name: Lisa Allen Date of : 1945 ?? Requesting Physician: ?? Mesfin Rosenthal MD Date of interpretation: 08/01/23 Type of monitor : ?? 30 day site monitor Date of the study/Enrollment period: June [...] sinus rhythm without ectopy. Dania Rosenthal MD, [facility] 08/01/23 Voice recognition software was used to complete this document, therefore, microfilmer variances may occur. Procedure Note Mesfin Rosenthal MD - 08/01/2023 Images from the original note were not included. AMBULATORY WOODWIND INSTRUMENTS INSPECTOR REPORT Patient Name: Lisa Allen Date of : 1945 Requesting Physician: Mesfin Rosenthal MD Date of interpretation: 08/01/23 Type of monitor : 30 day site monitor Date of the study/Enrollment period: June [...] sinus rhythm without ectopy. Dania Rosenthal MD, [facility] 08/01/23 Voice recognition software was used to complete this document, therefore,microfilmer variances may occur. Mesfin Rosenthal MD CV [...] 06/27/2023 documented in this encounter Care Teams Financial Specialist Relationship Specialty Start Date End Date Servando Torre MD NPI: [id number] [place] [address] [address] [place] [address] PCP - General Family Medicine 06/19/22 Mairela Denton MD [address] [place] [address] Referring Physician Gastroenterology 06/19/22 Lexis Barroso OD [address] [place] [address] Photo Lab Manager 09/19/22 documented as of this encounter
--- OUTSIDE RECORDS SUMMARY | 2024-07-15 17:38 | XMS_ITS | Encounter Summary ---
Author Organization [facility] Address [address] [place] [address] Phone Care Team Providers Care Commuter Train Operator Name Role Phone Servando Torre MD Primary Care Provider [phone] Mariela Denton MD Unavailable [phone] -[phone] Lexis Barroso OD Unavailable +1- [phone] Reason for Referral * MRI/CAT/PET Scan (Routine) - Closed Specialty Diagnoses / Procedures Referred By Angel braswell Referred To Contact Radiology Diagnoses Seizure (HCC) Procedures MRI Brain WO Contrast Adria Burleson MD 1 [facility] [address] [place] [address] Phone: tel: fax: [address] [address] Referral ID Status Reason Start Date Expiration Date Visits Re quested Visits Authorized [id number] Closed 06/24/2023 07/23/2024 1 1 ECTIVE SERVICE SPECIALIST Encounter Details Date Type Department Care Team (Late st Contact Info) Description 06/24/2023 1:30 PM PROTECTIVE SERVICE SPECIALIST Office Visit [facility] Epilepsy [address] [facility] 6th [place] [address] [place] [address] Adria Burleson MD [address] [facility] [address] [place] [address] Seizure (HCC) (Primary Dx) Social History Tobacco [...] on file Legal Sex Female 9:30 AM PROTECTIVE SERVICE SPECIALIST Gender Identity Female 04/05/2022 6:17 PM CDT Sexual Orientation Straight 04/05/2022 6: 17 PM CDT documented as of this encounter Last Filed Vital Signs Vital Sign Reading Time Taken Comments Blood Pressure 176/84 06/24/2023 1:37 PM PROTECTIVE SERVICE SPECIALIST Pulse 66 06/24/2023 1:37 PM PROTECTIVE SERVICE SPECIALIST Temperature - - Respiratory Rate - - Oxygen Saturation - - Inhaled Oxygen Concentration - - Weight 65.8 kg (145 lb) 06/24/2023 1:37 PM PROTECTIVE SERVICE SPECIALIST Height 157.5 cm (5' 2 ) 06/24/2023 1:37 PM PROTECTIVE SERVICE SPECIALIST Body Mass Index 26.52 06/24/2023 1:37 PM PROTECTIVE SERVICE SPECIALIST documented in this encounter Ordered Prescriptions Prescription [...] history: Epilepsy Risk Factors: Febrile seizure(s): No RADIATION ONCOLOGY THERAPIST 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 -EEG at [facility] on 03/07/2023: This is an [...] time spent in any separately reportable services. ECTIVE SERVICE SPECIALIST documented in this encounter Plan of Treatment Not on file documented as of this encounter Results * MRI Brain WO Contrast (07/11/2023 2:40 PM PROTECTIVE SERVICE SPECIALIST) Anatomical Region Laterality Modality Head and Neck N/A Magnetic Resonan ce 07/11/2023 3:40 PM PROTECTIVE SERVICE SPECIALIST Impressions 07/11/2023 4:17 PM PROTECTIVE SERVICE SPECIALIST No MRI evidence to explain the patient's seizures. Dictated by: Marcell Cerna MD The radiology attending physician has personally reviewed this study, and had reviewed and/or edited this written report and agrees with it. Electronically signed by: Tino Rodriguez M.D. Ph.D. Narrative 07/11/2023 4:17 PM PROTECTIVE SERVICE SPECIALIST EXAMINATION: Magnetic resonance imaging (MRI) of the [...] documented as of this encounter Care Teams Commuter Train Operator Relationship Specialty Start Date End Date Servando Torre MD [address] [facility] [address] [place] [address] PCP - General Family Medicine 06/19/22 Mariela Denton MD [address] [place] [address] Referring Physician Gastroenterology 06/19/22 Lexis Barroso OD [address] [place] [address] Online Advertising Director 09/19/22 documented as of this encounter
--- OUTSIDE RECORDS SUMMARY | 2024-07-15 17:38 | XMS_ITS | Encounter Summary ---
Author Organization [facility] Healthcare Address [address] [place] [address] Care Team Providers Care Conche Operator Name Role Phone Servando Torre MD Primary Care Provider +1- [phone] Mariela Denton MD Unavailable +1 -[phone] Lexis Barroso OD Unavailable +1- [phone] Encounter Details Date Type Department Care Team (Latest Contact Info) Description 07/01/2023 3:30 PM PERLITE GRINDER - 07/01/2023 11:59 PM PERLITE GRINDER Hospital Encounter [facility] [address] [place] [address] UTI symptoms Discharge Disposition: Discharge to [...] on file Legal Sex Female 9:30 AM PERLITE GRINDER Gender Identity Female 04/05/2022 6:17 PM [...] catheter every 8 (eight) weeks Infused at: [facility] ([facility] order in [facility] under 'Procedures' tab). 1 each 5 04/29/2023 [...] REFLEX TO MICROSCOPIC Routine 07/01/2023 3:30 PM PERLITE GRINDER UTI symptoms URINALYSIS, MICROSCOPIC ONLY Routine 07/01/2023 3:30 PM PERLITE GRINDER UTI symptoms URINE CULTURE Routine 07/01/2023 3:30 PM PERLITE GRINDER UTI symptoms documented in this encounter Results * (ABNORMAL) Urinalysis, microscopic only (07/01/2023 3:30 PM PERLITE GRINDER) WBC, ur 0-5 0 - 5 /HPF [facility] RBC, ur 3-5(A) 0 - 2 /HPF [facility] Epithelial cells, squamous, ur 1-5 0 - 5 /HPF [facility] Calcium oxalate crystals, ur 3+(A) [facility] Urine 07/01/2023 3:30 PM PERLITE GRINDER 07/01/2023 6:41 PM PERLITE GRINDER Servando Torre MD LAB URINE ORDERABLES Final Result Performing Organization Address [facility] de Phone Number [facility] [address] [place] [address] * Urine culture Urine, clean voided (07/01/2023 3:30 PM PERLITE GRINDER) Report Final Report: Less than 100,000 colonies/mL (clinically insignificant growth based on current clinical standards) [facility] Comment:Testing performed by : [facility], [address] [place]., [address] Organism (CLINICALLY INSIGNIFICANT GROWTH [facility] Urine, clean voided 07/01/2023 3:30 PM PERLITE GRINDER 07/01/2023 9:57 PM PERLITE GRINDER Narrative [facility] - 07/03/2023 8:11 AM PERLITE GRINDER Testing performed by [facility] Microbiology Laboratory ([phone]) Servando Torre MD LAB MICROBIOLOGY - GENERAL ORDERABLES Final Result Performing Organization Address [facility] Phone Number [facility] [address] [place] [address] * (ABNORMAL) Urinalysis reflex to microscopic (07/01/2023 3:30 PM PERLITE GRINDER) Color, ur Yellow Yellow [facility] Clarity, ur Cloudy(A) Clear [facility] Specific gravity, ur 1.016 1.003 - 1.030 [facility] pH, urine 7.0 [facility] Comment: Interpretive Data ? Urine pH is affected by diet, medications, systemic acid-base disturbances, and renal tubular function. ??pH may affect urinary stone formation. ??For example, urine pH below 6.0 may help reduce the tendency for calcium phosphate stones and pH greater than 6.0 may reduce the tendency for uric acid stone formation. Source: [facility] [employer] Current Interpretive Data was last revised on [...] performed. [facility] Urine 07/01/2023 3:30 PM PERLITE GRINDER 07/01/2023 6:41 PM PERLITE GRINDER us Servando Torre MD LAB URINE ORDERABLES Final Result Performing Organization Address City/State/[facility] [place] Phone Number [facility] [address] [facility] [place] [address] documented in this encounter Visit Diagnoses Diagnosis UTI symptoms documented in this encounter Care Teams Conche Operator Relationship Specialty Start Date End Date Servando Torre MD [facility]2 [facility] [address] [place] [address] PCP - General Family Medicine 06/19/22 Mariela Denton MD [facility] [address] [place] [address] Referring Physician Gastroenterology 06/19/22 Lexis Barroso OD [address] [place] [address] Director Of Kids 09/19/22 documented as of this encounter
--- OUTSIDE RECORDS SUMMARY | 2024-07-15 17:39 | XMS_ITS | Encounter Summary ---
Author Organization [facility] Address [address] [place] [address] Phone Care Team Providers Care Sheep Rancher Name Role Phone Servando Torre MD Primary Care Provider [phone] [phone] Mariela Denton MD Unavailable +1 -[phone] Lexis Barroso OD Unavailable +1- [phone] Encounter Details Date Type Department Care Team (Late st Contact Info) Description 05/07/2023 Telephone [facility] [address] [facility] 6th [place] [address] [place] [address] Kiara Houser Social History Tobacco [...] on file Legal Sex Female 9:30 AM RATING SPECIALIST Gender Identity Female 04/05/2022 6:17 PM [...] on filedocumented in this encounter Care Teams Sheep Rancher Relationship Specialty Start Date End Date Servando Torre MD [address] [address] PCP - General Family Medicine 06/19/22 Mariela Denton MD [address] [place] [address] Referring Physician Gastroenterology 06/19/22 Lexis Barroso OD [address] [place] [address] Transformation Architect 09/19/22 documented as of this encounter
--- OUTSIDE RECORDS SUMMARY | 2024-07-15 17:39 | XMS_ITS | Encounter Summary ---
Author Organization [facility] Healthcare Address [address] [place] [address] Care Team Providers Care Mortgage Broker Name Role Phone Servando Torre MD Primary Care Provider Mariela Denton MD Unavailable [phone] [phone] Lexis Barroso OD Unavailable +1- [phone] Reason for Visit * Reason Onset Date Comments Medical Question/Miscellaneous 05/07/2023 Encounter Details Date Type Department Care Team (Late st Contact Info) Description 05/07/[address] [facility] Primary Care at [address] [address] Servando Torre MD [address] [place] [address] [address] [place] [address] Medical Question/Miscellaneous Social History Tobacco [...] on file Legal Sex Female 9:30 AM STERILE PREPARATION TECHNICIAN Gender Identity Female 04/05/2022 6:17 PM [...] needed, just FYI Caller???s Call back #: [phone] Does message need to be routed? Yes-FYI Only documented in this encounter Plan of Treatment Not on file documented as of this encounter Visit Diagnoses Not on filedocumented in this encounter Care Teams Mortgage Broker Relationship Specialty Start Date End Date Servando Torre MD [address] [address] PCP - General Family Medicine 06/19/22 Mariela Denton MD [address] [place] [address] Referring Physician Gastroenterology 06/19/22 Lexis Barroso OD [address] [place] [address] Manager Clinical Applications 09/19/22 documented as of this encounter
--- OUTSIDE RECORDS SUMMARY | 2024-07-15 17:39 | XMS_ITS | Encounter Summary ---
Author Organization [facility] Address [address] [place] [address] Phone Care Team Providers Care Molder Feeder Name Role Phone Servando Torre MD Primary Care Provider +1 [phone] Mariela Denton MD Unavailable +1 -[phone] Lexis Barroso OD Unavailable +1- [phone] Reason for Visit * Reason Onset Date Comments Updated Entyvio Order - Provider Change 04/29/20 Encounter Details Date Type Department Care Team (Late st Contact Info) Description 04/29/[address] [facility] Gastroenterology [address] [facility] 12th [place] [address] [place] [address] Janice Baez LPN Updated Entyvio Order - [...] on file Legal Sex Female 9:30 AM ANIMAL HOSPITAL OFFICE SUPERVISOR Gender Identity Female 04/05/2022 6:17 PM [...] [facility] ([facility] order in Epic under 'Procedures' tab). 1 each 5 04/29/2023 documented in this encounter Progress Notes * Janice Baez LPN - 04/29/2023 11:09 AM CDT Pt was previously established in Dr. Mariela Denton's practice for her IBD care, however, Dr. Denton has left the [place]. Pt is now scheduled to establish care [...] requested. -------Fax Transmission Report------- To: Recipient at [phone] Subject: Joseph Allen - Updated Infusion Order [Secure] Result: The transmission was successful. Explanation: All Pages Ok Pages Sent: 3 Connect Time: 0 minutes, 45 seconds Transmit Time: 04/29/2023 12:58 Transfer Rate: 07249 Status Code: 0000 Retry Count: 0 Job Id: [id number] Unique Id: [id number] Fax Line: 1 Fax Conference Center Manager: [id number] documented in this encounter Plan of Treatment [...] 023 documented in this encounter Care Teams Molder Feeder Relationship Specialty Start Date End Date Servando Torre MD [address] [address] PCP - General Family Medicine 06/19/22 Mariela Denton MD [address] [place] [address] Referring Physician Gastroenterology 06/19/22 Lexis Barroso OD [address] [place] [address] Supervisor Calibration 09/19/22 documented as of this encounter
--- OUTSIDE RECORDS SUMMARY | 2024-07-15 17:39 | XMS_ITS | Encounter Summary ---
Author Organization [facility] Address [address] [place] [address] Phone Care Team Providers Care Information Security Specialist Name Role Phone Servando Torre MD Primary Care Provider +1 [phone] Mariela Denton MD Unavailable +1 -[phone] Lexis Barroso OD Unavailable +1- [phone] Encounter Details Date Type Department Care Team (Late st Contact Info) Description 05/05/2023 2:30 PM CDT Office Visit [facility] Epilepsy [address] [facility] 6th [place] [address] [place] [address] Adria Burleson MD [address] [facility] [address] [place] [address] Localization-related symptomatic epilepsy and epileptic [...] on file Legal Sex Female 9:30 AM DIRECT SUPPORT STAFF Gender Identity Female 04/05/2022 6:17 PM CDT [...] 05/05/2023 PCP: Servando Torre MD Provider: Raj Cedillo [...] history from last visit: Fall while in [place] 01/30/2023 [place] altitude) for a family reunion [...] history: Epilepsy Risk Factors: Febrile seizure(s): No CARDIOLOGY PHYSICIAN ASSISTANT 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 -EEG at [facility] on 03/07/2023: This is an abnormal [...] Primary documented in this encounter Care Teams Information Security Specialist Relationship Specialty Start Date End Date Servando Torre MD [address] [facility] [address] [place] [address] PCP - General Family Medicine 06/19/22 Mariela Denton MD [address] [place] [address] Referring Physician Gastroenterology 06/19/22 Lexis Barroso OD [address] [place] [address] Drop Pit Worker 09/19/22 documented as of this encounter
--- OUTSIDE RECORDS SUMMARY | 2024-07-15 17:39 | XMS_ITS | Encounter Summary ---
Author Organization [facility] Address [address] [place] [address] Phone Care Team Providers Care Special Education Case Manager Name Role Phone Servando Torre MD Primary Care Provider +1 [phone] Mariela Denton MD Unavailable +1 -[phone] Lexis Barroso OD Unavailable +1- [phone] Encounter Details Date Type Department Care Team (Late st Contact Info) Description 05/07/2023 Telephone [facility] [address] [facility] 6th [place] [address] [place] [address] Lizzy Young Social History Tobacco [...] on file Legal Sex Female 9:30 AM CENTRAL OFFICE FRAME WIRER Gender Identity Female 04/05/2022 6:17 PM CDT [...] filedocumented in this encounter Care Teams Special Education Case Manager Relationship Specialty Start Date End Date Servando Torre MD [facility] [address] [address] PCP - General Family Medicine 06/19/22 Mariela Denton MD [address] [place] [address] Referring Physician Gastroenterology 06/19/22 Lexis Barroso OD [address] [place] [address] Vehicle Body Builder 09/19/22 documented as of this encounter
--- OUTSIDE RECORDS SUMMARY | 2024-07-15 17:41 | XMS_ITS | Encounter Summary ---
Author Organization [facility] Address [address] [facility] [address] [place] [address] Care Team Providers Care Operating Table Assembler Name Role Phone Servando Torre MD Primary Care Provider +1- [phone] Mariela Denton MD Unavailable +1 -[phone] Lexis Barroso OD Unavailable +1- [phone] Encounter Details Date Type Department Care Team (Late st Contact Info) Description 03/21/2023 Telephone [facility] Primary Care at [address] [address] Regina Loo, KRISTINA Social History [...] file Legal Sex Female 9:30 AM DIRECTOR OF CONSERVATION Gender Identity Female 04/05/2022 6:17 PM CDT [...] on filedocumented in this encounter Care Teams Operating Table Assembler Relationship Specialty Start Date End Date Servando Torre MD [address] [facility] [address] [place] [address] PCP - General Family Medicine 06/19/22 Mariela Denton MD [address] [place] [address] Referring Physician Gastroenterology 06/19/22 Lexis Barroso OD [address] [place] [address] Rubber Goods Supervisor 09/19/22 documented as of this encounter
--- OUTSIDE RECORDS SUMMARY | 2024-07-15 17:41 | XMS_ITS | Encounter Summary ---
Author Organization [facility] Address [address] [facility] [address] [place] [address] Care Team Providers Care Qa Software Test Engineer Name Role Phone Servando Torre MD Primary Care Provider +1- [phone] Mariela Denton MD Unavailable +1 -[phone] Lexis Barroso OD Unavailable +1- [phone] Encounter Details Date Type Department Care Team (Late st Contact Info) Description 03/12/2023 Orders Only [facility] Medical [facility] Primary Care at [place] [address] [place] [address] Servando Torre MD [address] [place] [address] [address] [place] [address] Type 2 diabetes mellitus with [...] on file Legal Sex Female 9:30 AM SPECIAL EDUCATION AIDE Gender Identity Female 04/05/2022 6:17 PM CDT Sexual Orientation Straight 04/05/2022 6: 17 PM CDT documented as of this encounter Plan of Treatment Not on file documented as of this encounter Visit Diagnoses Diagnosis Type 2 diabetes mellitus with hyperglycemia, without long-term current use of insulin (HCC)- Primary documented in this encounter Care Teams Qa Software Test Engineer Relationship Specialty Start Date End Date Servando Torre MD [address] [address] PCP - General Family Medicine 06/19/22 Mariela Denton MD [facility] [address] [place] [address] Referring Physician Gastroenterology 06/19/22 Lexis Barroso OD [address] [place] [address] Dehorner 09/19/22 documented as of this encounter
--- OUTSIDE RECORDS SUMMARY | 2024-07-15 17:41 | XMS_ITS | Encounter Summary ---
Author Organization [facility] Address [address] [facility] [address] [place] [address] Care Team Providers Care Pet Care Assistant Name Role Phone Servando Torre MD Primary Care Provider +1- [phone] Mariela Denton MD Unavailable +1 -[phone] Lexis Barroso OD Unavailable +1- [phone] Reason for Visit * Reason Onset Date Comments Medical Question/Miscellaneous 04/03/2023 Encounter Details Date Type Department Care Team (Late st Contact Info) Description 04/03/2023 Telephone [facility] Medical [facility] Primary Care at [address] [address] Servando Torre MD [address] [place] [address] [address] [place] [address] Medical Question/Miscellaneous Social History Tobacco [...] on file Legal 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 Caller???s Call back #: [phone] Does message need to be routed? Yes-FYI Only documented in this encounter Plan of Treatment Not on file documented as of this encounter Visit Diagnoses Not on filedocumented in this encounter Care Teams Pet Care Assistant Relationship Specialty Start Date End Date Servando Torre MD [facility] [address] [place] [address] PCP - General Family Medicine 06/19/22 Mariela Denton MD [address] [place] [address] Referring Physician Gastroenterology 06/19/22 Lexis Barroso OD [address] [place] [address] Insole Channeler 09/19/22 documented as of this encounter
--- OUTSIDE RECORDS SUMMARY | 2024-07-15 17:41 | XMS_ITS | Encounter Summary ---
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 Gender Identity Female 04/05/2022 6:17 PM CDT Sexual Orientation Straight 04/05/2022 6: 17 PM CDT documented as of this encounter Miscellaneous Notes * Telephone Encounter - Dorcas Holt RT - 03/17/2023 12:16 PM CDT Confirmed appt documented in this encounter Plan of Treatment Not on file documented as of this encounter Visit Diagnoses Not on filedocumented in this encounter Care Teams Hotel Breakfast Attendant Relationship Specialty Start Date End Date Servando Torre MD [facility] [address] PCP - General Family Medicine 06/19/22 Mariela Denton MD [address] [place] [address] Referring Physician Gastroenterology 06/19/22 Lexis Barroso OD [address] [place] [address] Novelties Sales Representative 09/19/22 documented as of this encounter
--- OUTSIDE RECORDS SUMMARY | 2024-07-15 17:41 | XMS_ITS | Encounter Summary ---
Author Organization [facility] Address [address] [place] [address] Care Team Providers Care Director Chemistry Name Role Phone Servando Torre MD Primary Care Provider +1- [phone] Mariela Denton MD Unavailable +1 -[phone] Lexis Barroso OD Unavailable +1- [phone] Reason for Referral * MRI/CAT/PET Scan (Routine) - Closed Specialty Diagnoses / Procedures Referred By Contac t Referred To Contact Radiology Diagnoses Nodule of kidney Procedures MRI Abdomen Kidney W WO Contrast Marixa San NP [address] [facility] [address] [place] [address] Phone: tel: fax: [address] [phone] Referral ID Status Reason Start Date Expiration Date Visits Re quested Visits Authorized [id number] Closed 03/21/2023 04/19/2024 1 1 Encounter Details Date Type Department Care Team (Late st Contact Info) Description 03/21/2023 Orders Only [facility] Primary Care at [address] [address] Marixa San NP [address] [facility] [address] [place] [address] Nodule of kidney (Primary Dx) [...] on file Legal 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 JA: JAYLEEN Report ID: [id number] Reading Location: [place] [address] Marixa San CHEMICAL ENGINEERING TECHNICIAN IMG MRI PROCEDURES Final Result documented in this encounter Visit Diagnoses Diagnosis Nodule of kidney- Primary Nodule of kidney documented in this encounter Care Teams Director Chemistry Relationship Specialty Start Date End Date Servando Torre MD [address] [facility] [address] [place] [address] PCP - General Family Medicine 06/19/22 Mariela Denton MD [address] [place] [address] Referring Physician Gastroenterology 06/19/22 Lexis Barroso OD [address] [place] [address] Glass Mold Repairer 09/19/22 documented as of this encounter
--- OUTSIDE RECORDS SUMMARY | 2024-07-15 17:41 | XMS_ITS | Encounter Summary ---
Author Organization [facility] Medical [facility] Address [address] [facility] [address] [place] [address] Care Team Providers Care Hospital Chief Financial Officer Name Role Phone Servando Torre MD Primary Care Provider +1- [phone] Mariela Denton MD Unavailable +1 -[phone] Lexis Barroso OD Unavailable +1- [phone] Reason for Visit * Reason Onset Date Comments Medical Question/Miscellaneous 03/17/2023 Encounter Details Date Type Department Care Team (Late st Contact Info) Description 03/17/2023 Telephone [facility] Medical [facility] Primary Care at [address] [address] Servando Torre MD [address] [place] [address] [address] [place] [address] Medical Question/Miscellaneous Social History Tobacco [...] file 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 Caller???s Call back #: [phone] Does message need to be routed? Yes-FYI Only documented in this encounter Plan of Treatment Not on file documented as of this encounter Visit Diagnoses Not on filedocumented in this encounter Care Teams Hospital Chief Financial Officer Relationship Specialty Start Date End Date Servando Torre MD [facility] [address] PCP - General Family Medicine 06/19/22 Mariela Denton MD [address] [place] [address] Referring Physician Gastroenterology 06/19/22 Lexis Barroso OD [address] [place] [address] Environmental Engineering Aide 09/19/22 documented as of this encounter
--- OUTSIDE RECORDS SUMMARY | 2024-07-15 17:41 | XMS_ITS | Encounter Summary ---
Author Organization [facility] Healthcare Address [address] [place] [address] Care Team Providers Care Surface Lay Out Technician Name Role Phone Servando Torre MD Primary Care Provider +1- [phone] Mariela Denton MD Unavailable +1 -[phone] Lexis Barroso OD Unavailable +1- [phone] Reason for Referral * MRI/CAT/PET Scan (Routine) - Closed Specialty Diagnoses / Procedures Referred By Contclemencia braswell Referred To Contact Radiology Diagnoses Liver nodule Procedures CT Abdomen Pelvis W Contrast Marixa San NP [address] [place] [address] Phone: tel: fax: [address] [address] Referral ID Status Reason Start Date Expiration Date Visits Re quested Visits Authorized [id number] Closed 02/24/2023 2024 1 1 Reason for Visit * MRI/CAT/PET Scan (Routine) - Closed Specialty Diagnoses / Procedures Referred By Contac t Referred To Contact Radiology Diagnoses Liver nodule Procedures CT Abdomen Pelvis W Contrast Marixa San NP [address] [place] [address] Phone: tel: fax: [address] [address] Referral ID Status Reason Start Date Expiration Date Visits Re quested Visits Authorized [id number] Closed 02/24/2023 2024 1 1 Encounter Details Date Type Department Care Team (Latest Contact Info) Description 03/18/2023 2:07 PM CDT - 03/18/2023 11:59 PM CDT Hospital Encounter [facility] [address] [place] [address] Liver nodule Discharge Disposition: Discharge to home [...] on file 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 RB: MARISOL Report ID: [id number] Reading Location: [place] [address] Marixa San NP IMG CT PROCEDURES Final [...] mL documented in this encounter Care Teams Surface Lay Out Technician Relationship Specialty Start Date End Date Servando Torre MD [address] [facility] [address] [place] [address] PCP - General Family Medicine 06/19/22 Mariela Denton MD [address] [place] [address] Referring Physician Gastroenterology 06/19/22 Lexis Barroso OD [address] [place] [address] Bsw 09/19/22 documented as of this encounter
--- OUTSIDE RECORDS SUMMARY | 2024-07-15 17:41 | XMS_ITS | Encounter Summary ---
Author Organization [facility] Address [address] [facility] [address] [place] [address] Care Team Providers Care Secret Code Expert Name Role Phone Servando Torre MD Primary Care Provider +1- [phone] Mariela Denton MD Unavailable +1 -[phone] Lexis Barroso OD Unavailable +1- [phone] Encounter Details Date Type Department Care Team (Late st Contact Info) Description 04/01/2023 Telephone [facility] Primary Care at [address] [address] Regina Loo MA Social History [...] file 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
--- OUTSIDE RECORDS SUMMARY | 2024-07-15 17:41 | XMS_ITS | Encounter Summary ---
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 73 m2 [facility] Comment: Interpretive Data Reference Interval Normal [...] Torre MD LAB BLOOD ORDERABLES Final Result [facility] [address] Department [place] [address] * Differential, auto (03/21/2023 3:20 PM CDT) Pathologist [facility] Neutrophil abs 4.2 1.7 - 6.5 K/cumm [facility] Imm gran abs 0.0 0.0 - 0.1 K/cumm [facility] Lymphocyte abs 1.9 0.8 - 3.3 K/cumm [facility] Monocyte abs 0.6 0.2 - 0.8 K/cumm [facility] Eosinophil abs 0.2 0.0 - 0.5 K/cumm [facility] Basophil abs 0.1 0.0 - 0.1 K/cumm [facility] Neutrophil pct 59.6 % [facility] Comment: Interpretive Data Percent cell count reference ranges are not reported, since discordance with absolute values may lead to misinterpretation of CBC data. Current Interpretive Data was last revised on 2017. Imm gran pct 0.4 % [facility] Comment: Interpretive Data Percent cell count reference ranges are not reported, since discordance with absolute values may lead to misinterpretation of CBC data. Current Interpretive Data was last revised on 2017. Lymphocyte pct 27.6 % [facility] Comment: Interpretive Data Percent cell count reference ranges are not reported, since discordance with absolute values may lead to misinterpretation of CBC data. Current Interpretive Data was last revised on 2017. Monocyte pct 8.8 % [facility] Comment: Interpretive Data Percent cell count reference ranges are not reported, since discordance with absolute values may lead to misinterpretation of CBC data. Current Interpretive Data was last revised on 2017. Eosinophil pct 2.9 % [facility] Comment: Interpretive Data Percent cell count reference ranges are not reported, since discordance with absolute values may lead to misinterpretation of CBC data. Current Interpretive Data was last revised on 2017. Basophil pct 0.7 % [facility] Comment: Interpretive Data Percent cell count reference ranges are not reported, since discordance with absolute values may lead to misinterpretation of CBC data. Current Interpretive Data was last revised on 2017. Blood 03/21/2023 3:20 PM CDT 03/21/2023 6:04 PM CDT us Servando Torre MD LAB BLOOD ORDERABLES Final Result [facility] [address] Department [place] [address] * (ABNORMAL) Comprehensive metabolic panel (03/21/2023 3:20 [...] MD LAB BLOOD ORDERABLES Final Result [facility] [address] Department [place] [address] * (ABNORMAL) Lipid panel (03/21/2023 [...] PM CDT 03/21/2023 6:[address] [facility] Servando Torre MD LAB BLOOD ORDERABLES Final Result Performing Organization Address [facility] Phone Number [facility] [address] [facility] [place] [address] * (ABNORMAL) Hemoglobin A1c (03/21/2023 3:20 PM CDT) Hgb A1C 6.1(H) 4.0 - 5.6 % [facility] Estimated Average Glucose 128 mg/dL [facility] Comment: The ADA recommends reporting an estimated Average Glucose (eAG) with all Hemoglobin A1c results using the equation derived from a study of 507 normal and diabetic adults. ??Minority populations were underrepresented and children were not included. ?? (Diabetes Care 31:4685-3277, 2008). ??The eAG is not equivalent to a fasting glucose. Blood 03/21/2023 3:20 PM CDT 03/21/2023 6:04 PM CDT Servando Torre MD LAB BLOOD ORDERABLES Final Result Performing Organization Address [facility] Phone Number [facility] [address] [place] [address] * (ABNORMAL) Albumin Creatinine Ratio, Urine (03/21/2023 [...] PM CDT 03/21/2023 6:[address] [facility] Servando Torre MD LAB URINE ORDERABLES Final Result Performing Organization Address [facility] de Phone Number [facility] [address] Department [place] [address] * (ABNORMAL) CBC with auto differential (03/21/2023 [...] BLOOD ORDERABLES Final Result Performing Organization Address [facility] de Phone Number [facility] [address] Department [place] [address] documented in this encounter Visit Diagnoses Diagnosis Hypertension, essential Unspecified essential hypertension Hypertension 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
--- OUTSIDE RECORDS SUMMARY | 2024-07-15 17:41 | XMS_ITS | Encounter Summary ---
Author Organization [facility] Address [address] [facility] [address] [place] [address] Care Team Providers Care Manager Of Software Development Name Role Phone Servando Torre MD Primary Care Provider +1- [phone] Mariela Denton MD Unavailable +1 -[phone] Lexis Barroso OD Unavailable +1- [phone] Reason for Visit * Reason Comments Follow-up 3 month f/u Encounter Details Date Type Department Care Team (Late st Contact Info) Description 03/27/2023 2:00 PM CDT Office Visit [facility] Primary Care at [address] [address] Servando Torre MD [address] [place] [address] [address] [place] [address] Primary hypertension (Primary Dx); Prediabetes; [...] on file Legal Sex 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 You may receive a phone call, text, [...] and children were not included. (Diabetes Care 31:7500-6896, 2008). The eAG is not equivalent to [...] epilepticus (CMS/HCC) (HCC) Comments: continues follow up [facility] neuro tolerating Keppra Need for pneumococcal 20-valent conjugate vaccination - Pneumococcal conjugate vaccine 20-valent IM (Prevnar-20) Servando Torre MD This office note has been partially dictated using [employer] software, and as a result portions of the record may have been created with this software. Occasional wrong-word or '[id number]' substitutions may have occurred due to the [...] 03/27/2023 documented in this encounter Care Teams Manager Of Software Development Relationship Specialty Start Date End Date Servando Torre MD [address] [facility] [address] [place] [address] PCP - General Family Medicine 06/19/22 Mariela Denton MD [address] [place] [address] Referring Physician Gastroenterology 06/19/22 Lexis Barroso OD [address] [place] [address] Veterinary Pathologist 09/19/22 documented as of this encounter
--- OUTSIDE RECORDS SUMMARY | 2024-07-15 17:41 | XMS_ITS | Encounter Summary ---
Author Organization [facility] Address [address] [place] [address] Phone Care Team Providers Care Animal Cop Name Role Phone Servando Torre MD Primary Care Provider [phone] Mariela Denton MD Unavailable [phone] Lexis Barroso OD Unavailable +1- [phone] Reason for Visit * Consultation (Routine) - Closed Specialty Diagnoses / Procedures Referred By Angel braswell Referred To Contact Neurology Diagnoses Seizure (HCC) Adria Burleson MD 1 [facility] [address] [place] [address] Phone: tel: fax: Grace Nicolas MD [address] [place] [address] Phone: tel: fax:[phone] Referral ID Status Reason Start Date Expiration Date V isits Requested Visits Authorized [id number] Closed Specialty Services Required 03/03/2023 04/01/2024 1 1 Encounter Details Date Type Department Care Team (Late st Contact Info) Description 04/09/2023 2:00 PM CDT Office Visit [facility] [address] [facility] 6th [place] [address] [place] [address] Grace Nicolas MD [address] [facility] [address] [place] [address] Seizure (HCC) Social History Tobacco Use Types [...] on file Legal Sex Female 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 Radha Allen (: 1945) [facility], Department of Neurology [...] that very mild dementia due to an dw-wh-osd-unclearcause (that is, uncertain cause) is the most [...] for your future (Living Will, Power of Forest Management Professor for Health Care). You may wish to consult an log rafter regarding these matters. Level of Care Recommendation: You can continue to live independently with support from your family. FOLLOW-UP You should return to see either Ms. Chelsie Francisco NP, Ms. Pamela Langston NP, or CHAMP Ashton in [address] Nicolas in about a year. . You can [phone] if you have questions about scheduling. If we ordered blood tests today, please stop by the Express patient testing area on the third floorto have your blood drawn. This is across from the [employer], in the same direction as the [employer] parking garage. You should continue to see your primary care doctor at regular intervals. RESOURCES FOR ADDITIONAL INFORMATION AND SUPPORT We will refer you to our Alzheimer Association Him Tech. The social security specialist will call you in the next 7-10 days. Alzheimer's Association of [place] Chapter: ; (toll free); http://www.alz.org [facility] [phone] http://[facility]careSt. [facility] Agency on Aging (serving [facility]) http://[facility]ian hospital.[place].[facility]/government/hslaaa.html [facility] Agency on Aging (serving [place], [facility] and [facility] http://www.[facility].org [facility]- provides counseling and help with the aging and ailments of our loved ones. They may be able to provide counseling in your home as well as in their office and services may be covered by Medicare. [address], [place] [address] or [email or web address]. Website: http://LiB/services/ritrow-ueif-cmjukusg/ Mind in Motion, Cognitive Stimulation Through Activity at the S*Bio. [address] [facility] [address] [place] [address] http://www.[employer]/project/tunf-xt-keripr/ Lewy Body Dementia Association: (toll free); http://www.LBDA.org Association for Frontotemporal Dementias: (toll free); http://www.ftd-picks.org Geriatric Colorist Formulator: Decision Point consulting, Ms. Varsha Mcgarry, https://www.decisionpointconsulting.org/ Pathways for aging http://M2 Digital LimitedforBergey's.Allocadia/ Yessy Anthony with Next Step Elder Assist, Certified Buildings And Grounds Supervisor, [address], [address] [address]. , fax: [phone]. [email or web address] documented in this encounter Progress Notes * Grace Nicolas MD - 04/09/2023 2:00 PM CDT [facility] NEW PATIENT VISIT Grace Nicolas MD, MSc [facility] Department of Neurology Patient Name: RADHA ALLEN Medical Record Number (MRN): [id number] Date of (): 1945 Encounter Date: 04/09/2023 [...] able to operate household appliances including the medicare sales executive, laundry machines, and color maker. She has difficulty using technology, including [...] intact to pin-prick and vibratory sense. Coordination Nalvsg-lvfo-wxzpjx and koan-xsad-dvxb testing were normal. Gait Gait was normal, [...] mildlyimpaired range on tests of semantic memory (Burlington Naming, verbal fluency). Scores were in the [...] are common in patients with active depression. [facility] Neurobehavioral Status Test Results 04/09/2023 7:00 AM [facility] Neurobehavioral Status Exam Results Repository ICF signed? No Verbal Fluency Total Score 10 Burlington Naming (15 item) Total Score 15 MMSE [...] 0 Clinical Dementia Rating 04/09/2023 7:00 AM [facility] CDR/DIAGNOSIS NEW Repository ICF [...] 05/30/2022 No results found for: TSH , D5UYEZH , F3YTRNW , THYROIDAB Lab Results Component Value Date [...] or Ms. Pamela Langston, or our Physician On Site Construction Superintendent Ms. Marianne Mccullough in 6 months. --- [...] labs, tests and medical records, time spent dtjv-pj-djdz with the patient and family during the visit, performing counselling and education, placing orders and documenting the visit in the patient's EHR. Grace Nicolas MD, MSc Edging Machine Catcher Department of Neurology, [facility] Detailed plan and patient/caregiver education and referrals are in AVS copied below: Patient Instructions [facility] - VISIT SUMMARY & PATIENT INSTRUCTIONS For Ms. Radha Allen (: 1945) [facility], Department of Neurology [...] that very mild dementia due to an un-qe-zbp-unclearcause (that is, uncertain cause) is the most [...] for your future (Living Will, Power of Forest Management Professor for Health Care). You may wish to consult an log rafter regarding these matters. Level of Care Recommendation: You can continue to live independently with support from your family. FOLLOW-UP You should return to see either Ms. Chelsie Francisco NP, Ms. Pamela Langston NP, or CHAMP Ashton in [address] Nicolas in about a year. . You can [phone] if you have questions about scheduling. If we ordered blood tests today, please stop by the [facility] patient testing area on the third floorto have your blood drawn. This is across from the [employer], in the same direction as the [facility] parking garage. You should continue to see your primary care doctor at regular intervals. RESOURCES FOR ADDITIONAL INFORMATION AND SUPPORT We will refer you to our Alzheimer Association Him Tech. The social security specialist will call you in the next 7-10 days. Alzheimer's Association of [place] Chapter: ; (toll free); http://www.alz.org [facility] [phone] http://memorycareSt[facility] Agency on Aging (serving [facility]) http://[facility].[place].[facility]/government/hslaaa.html [facility] Agency on Aging (serving [place], [facility] and [facility] http://www.[facility] Psychological Associates- provides counseling and help with the aging and ailments of our loved ones. They may be able to provide counseling in your home as well as in their office and services may be covered by Medicare. [address], [place] [address] or [email or web address]. Website: http://LiB/services/xuxjep-ndvb-rzetbmcv/ Mind in Motion, Cognitive Stimulation Through Activity at the [place] Frontleaftic [employer]. [address] [facility] [address] [place] [address] http://www.[employer] Games.Allocadia/project/jpav-qd-kmdzbp/ Lewy Body Dementia Association: (toll free); http://www.LBDA.org Association for Frontotemporal Dementias: (toll free); http://www.ftd-picks.org Geriatric Colorist Formulator: Decision Point consulting, Ms. Varsha Mcgarry, https://www.decisionpointconsulting.org/ Pathways for aging http://A [employer]/ Yessy Anthony with Next Step Elder Assist, Certified Buildings And Grounds Supervisor, [address], [place] [address]. , fax: [phone]. [email or web address]. documented in this encounter Plan of Treatment [...] 04/09/2023 documented in this encounter Care Teams Animal Cop Relationship Specialty Start Date End Date Servando Torre MD [address] [facility] [address] [place] [address] PCP - General Family Medicine 06/19/22 Mariela Denton MD [address] [place] [address] Referring Physician Gastroenterology 06/19/22 Lexis Barroso OD [address] [place] [address] Stock Analyst 09/19/22 documented as of this encounter
--- OUTSIDE RECORDS SUMMARY | 2024-07-15 17:41 | XMS_ITS | Encounter Summary ---
Author Organization [facility] Address [address] [facility] [address] [place] [address] Care Team Providers Care Commercial Carpenter Name Role Phone Servando Torre MD Primary Care Provider [phone]- [phone] Mariela Denton MD Unavailable [phone] [phone] Lexis Barroso OD Unavailable +1- [phone] Reason for Visit * Reason Onset Date Comments Additional Services Or Orders 03/13/2023 Encounter Details Date Type Department Care Team (Late st Contact Info) Description 03/13/2023 Telephone [facility] Medical [facility] Primary Care at [address] [address] Servando Torre MD [address] [place] [address] [address] [place] [address] Additional Services Or Orders Social [...] file 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 Does message need to be routed? Yes-Action Needed documented in this encounter Plan of Treatment Not on file documented as of this encounter Visit Diagnoses Diagnosis Memory impairment- Primary Memory loss documented in this encounter Care Teams Commercial Carpenter Relationship Specialty Start Date End Date Servando Torre MD [address] [facility] [address] [place] [address] PCP - General Family Medicine 06/19/22 Mariela Denton MD [address] [place] [address] Referring Physician Gastroenterology 06/19/22 Lexis Barroso OD [address] [place] [address] Nurse Emergency 09/19/22 documented as of this encounter
--- OUTSIDE RECORDS SUMMARY | 2024-07-15 17:41 | XMS_ITS | Encounter Summary ---
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
--- OUTSIDE RECORDS SUMMARY | 2024-07-15 17:41 | XMS_ITS | Encounter Summary ---
Author Organization [facility] Address [address] [facility] [address] [place] [address] Care Team Providers Care Smeller Name Role Phone Servando Torre MD Primary Care Provider +1- [phone] Mariela Denton MD Unavailable [phone] [phone] Lexis Barroso OD Unavailable +1- [phone] Encounter Details Date Type Department Care Team (Late st Contact Info) Description 03/21/2023 3:00 PM CDT Lab [facility] Medical [facility] Outpatient Lab at [address] [address] Nodule of kidney (Primary Dx) [...] on file Legal Sex Female 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 Gender Identity Female 04/05/2022 6:17 PM CDT Sexual Orientation Straight 04/05/2022 6: 17 PM CDT documented as of this encounter Plan of Treatment Not on file documented as of this encounter Visit Diagnoses Diagnosis Nodule of kidney- Primary documented in this encounter Care Teams Smeller Relationship Specialty Start Date End Date Servando Torre MD [address] [facility] [address] [place] [address] PCP - General Family Medicine 06/19/22 Mariela Denton MD [address] [place] [address] Referring Physician Gastroenterology 06/19/22 Lexis Barroso OD [address] [place] [address] Medical Collections 09/19/22 documented as of this encounter
--- OUTSIDE RECORDS SUMMARY | 2024-07-15 17:41 | XMS_ITS | Encounter Summary ---
Author Organization [facility] Address [address] [place] [address] Phone Care Team Providers Care Embossing Machine Tender Name Role Phone Servando Torre MD Primary Care Provider [phone] Mariela Denton MD Unavailable [phone] Lexis Barroso OD Unavailable +1- [phone] Encounter Details Date Type Department Care Team (Late st Contact Info) Description 04/11/2023 Telephone [facility] [address] [facility] 6th [place] [address] [place] [address] Lizzy Young Social History Tobacco [...] file Legal 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
--- OUTSIDE RECORDS SUMMARY | 2024-07-15 17:41 | XMS_ITS | Encounter Summary ---
Author Organization [facility] Address [address] [place] [address] Phone Care Team Providers Care Hotel Controller Name Role Phone Servando Torre MD Primary Care Provider [phone] Mariela Denton MD Unavailable [phone] Lexis Barroso OD Unavailable +1- [phone] Encounter Details Date Type Department Care Team (Late st Contact Info) Description 03/17/2023 4:30 PM CDT Office Visit [facility] Epilepsy [address] [facility] 6th [place] [address] [place] [address] Adria Burleson MD [address] [facility] [address] [place] [address] Localization-related symptomatic epilepsy and epileptic [...] on file Legal 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 [facility] EEG showed right frontotemporal epileptiform discharges and slowing. Interval events: -Presented to the [facility] ED on 03/07/2023 due to concerns for [...] history from last visit: Fall while in [place] 01/30/2023 [place]high altitude) for a family reunion [...] history: Epilepsy Risk Factors: Febrile seizure(s): No SLIDER ASSEMBLER 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 Her asymmetric hyperreflexia on the left arm/leg is concerning for central pathology (I.e., likely structural cervical myelopathy). Given she is otherwise asymptomatic (I.e. no symptoms concerning for acute myelopathy or acute intracranial pathology), we will waitfor her evaluation at the [facility] prior to obtaining further imaging for epilepsy work-up, myelopathy work-up, and cognitive decline work-up to avoid repeat imaging. Of note, given her handedness and unclear lateralization of her clinical and electrographic findings, neuropsychological testing may provide additional benefit in terms of lateralization for her epilepsy. Recommendations: Neuroimaging: Pending [facility] evaluation. Will plan to obtain MRI brain epilepsy protocol with and without contrast and MRI cervical spine without contrast in coordination with the [facility] Electrodiagnostics: None Antiseizure medications (ASM): continue levetiracetam [...] documented as of this encounter Care Teams Hotel Controller Relationship Specialty Start Date End Date Servando Torre MD [address] [address] PCP - General Family Medicine 06/19/22 Mariela Denton MD [address] [place] [address] Referring Physician Gastroenterology 06/19/22 Lexis Barroso OD [address] [place] [address] Glove Maker 09/19/22 documented as of this encounter
--- OUTSIDE RECORDS SUMMARY | 2024-07-15 17:41 | XMS_ITS | Encounter Summary ---
Author Organization [facility] Healthcare Address [address] [place] [address] Care Team Providers Care Hypoid Gear Tester Name Role Phone Servando Torre MD Primary Care Provider [phone]- [phone] Mariela Denton MD Unavailable [phone] [phone] Lexis Barroso OD Unavailable +1- [phone] Reason for Referral * MRI/CAT/PET Scan (Routine) - Closed Specialty Diagnoses / Procedures Referred By Angel braswell Referred To Contact Radiology Diagnoses Nodule of kidney Procedures MRI Abdomen Kidney W WO Contrast Marixa San NP [address] [place] [address] Phone: tel: fax: [address] [address] Referral ID Status Reason Start Date Expiration Date Visits Re quested Visits Authorized [id number] Closed 03/21/2023 04/19/2024 1 1 Reason for Visit * MRI/CAT/PET Scan (Routine) - Closed Specialty Diagnoses / Procedures Referred By Contclemencia braswell Referred To Contact Radiology Diagnoses Nodule of kidney Procedures MRI Abdomen Kidney W WO Contrast Marixa San NP [address] [place] [address] Phone: tel: fax: [address] [address] Referral ID Status Reason Start Date Expiration Date Visits Re quested Visits Authorized [id number] Closed 03/21/2023 04/19/2024 1 1 Encounter Details Date Type Department Care Team (Latest Contact Info) Description 04/24/2023 7:51 AM CDT - 04/24/2023 11:59 PM CDT Hospital Encounter [facility] 1 [place] [address] Nodule of kidney Discharge Disposition: Discharge to [...] file Legal Sex Female 9:30 AM MANAGER ORGANIZATIONAL Gender Identity Female 04/05/2022 6:17 PM CDT [...] PM T: ??04/25/2023 2:51 PM Report ID: [id number] Reading Location: ??[id number] Procedure Note Mars Doll MD - 04/25/2023 [...] Mars Doll M.D. JA: JAYLEEN Report ID: [id number] Reading Location: [place] [address] Marixa San HOP PICKER IMG MRI PROCEDURES Final Result documented in [...] mL documented in this encounter Care Teams Hypoid Gear Tester Relationship Specialty Start Date End Date Servando Torre MD [address] [facility] [address] [place] [address] PCP - General Family Medicine 06/19/22 Mariela Denton MD [address] [place] [address] Referring Physician Gastroenterology 06/19/22 Lexis Barroso OD [address] [place] [address] Mosaic Technician 09/19/22 documented as of this encounter
--- OUTSIDE RECORDS SUMMARY | 2024-07-15 17:41 | XMS_ITS | Encounter Summary ---
Author Organization [facility] Address [address] [place] [address] Phone Care Team Providers Care Accounting Policy Consultant Name Role Phone Servando Torre MD Primary Care Provider +1 [phone] Mariela Denton MD Unavailable [phone] Lexis Barroso OD Unavailable +1- [phone] Reason for Visit * Reason Onset Date Comments PA for Azathiopurine 04/04/2023 PA Approved 04/04/2023 Encounter Details Date Type Department Care Team (Late st Contact Info) Description 04/04/2023 Documentation [facility] Gastroenterology [address] [facility] 12th [place] [address] [place] [address] Coty Sorensen for Azathiopurine; PA Approved Social [...] on file 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 Gender Identity Female 04/05/2022 6:17 PM CDT Sexual Orientation Straight 04/05/2022 6: 17 PM CDT documented as of this encounter Progress Notes * Coty Sorensen - 04/04/2023 3:58 PM CDT 04/07/23 - PA approved through [employer] starting 01/04/2023 through 04/04/2024 (#90 per 90 days) PA submitted to [employer] through [facility] for Aza (#90 per 90 days) documented in this encounter Plan of Treatment Not on file documented as of this encounter Visit Diagnoses Not on filedocumented in this encounter Care Teams Accounting Policy Consultant Relationship Specialty Start Date End Date Servando Torre MD [address] [address] PCP - General Family Medicine 06/19/22 Mariela Denton MD [facility] [address] [place] [address] Referring Physician Gastroenterology 06/19/22 Lexis Barroso OD [address] [place] [address] Cigarette Book Maker 09/19/22 documented as of this encounter
--- OUTSIDE RECORDS SUMMARY | 2024-07-15 17:42 | XMS_ITS | Encounter Summary ---
Author Organization [facility] Address [address] [facility] [address] [place] [address] Care Team Providers Care Aquatics Director Name Role Phone Servando Torre MD Primary Care Provider +1- [phone] Mariela Denton MD Unavailable +1 -[phone] Lexis Barroso OD Unavailable +1- [phone] Reason for Referral * MRI/CAT/PET Scan (Routine) - Closed Specialty Diagnoses / Procedures Referred By Contac t Referred To Contact Radiology Diagnoses Liver nodule Procedures CT Abdomen Pelvis W Contrast Marixa San NP [address] [facility] [address] [place] [address] Phone: tel: fax: [address] [phone] Referral ID Status Reason Start Date Expiration Date Visits Re quested Visits Authorized [id number] Closed 02/24/2023 2024 1 1 Encounter Details Date Type Department Care Team (Late st Contact Info) Description 02/24/[address] 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 RB: RB Report ID: [id number] Reading Location: [id number] Marixa San NP IMG CT PROCEDURES Final Result documented in this encounter Visit Diagnoses Diagnosis Liver nodule- Primary Other specified disorders of liver Liver nodule Other specified disorders of liver documented in this encounter Care Teams Aquatics Director Relationship Specialty Start Date End Date Servando Torre MD [address] [facility] [address] [place] [address] PCP - General Family Medicine 06/19/22 Mariela Denton MD [address] [facility] [address] [place] [address] Referring Physician Gastroenterology 06/19/22 Lexis Barroso OD [address] [place] [address] Metal Casket Assembler 09/19/22 documented as of this encounter
--- OUTSIDE RECORDS SUMMARY | 2024-07-15 17:42 | XMS_ITS | Encounter Summary ---
Author Organization [facility] Address [address] [place] [address] Phone Care Team Providers Care Co Founder And Chairman Name Role Phone Servando Torre MD Primary Care Provider [phone] Mariela Denton MD Unavailable +1 -[phone] Lexis Barroso OD Unavailable +1- [phone] Reason for Referral * Consultation (Routine) - Closed Specialty Diagnoses / Procedures Referred By Angel braswell Referred To Contact Neurology Diagnoses Seizure (HCC) Adria Burleson MD 1 [place] [address] Phone: tel: fax: Kimberly Padilla MD 1 [place] [address] Phone: tel: fax:[phone] Referral ID Status Reason Start Date Expiration Date V isits Requested Visits Authorized [id number] Closed Specialty Services Required 03/03/2023 04/01/2024 1 1 Question Answer Please select the performing region: [facility] (All Locations) [[id number]] To provider: KIMBERLY PADILLA [[id number]] # of visits: 1 Reason for Visit * Consultation (Routine) - Closed Specialty Diagnoses / Procedures Referred By Angel t Referred To Contact Neurology Diagnoses Seizure (HCC) Marixa San, CONSTANZA [address] [place] [address] Phone: tel: fax: [facility] Epilepsy [address] [facility] 6th [place] [address] [place] [address] Phone: tel: fax: Referral ID Status Reason Start Date Expiration Date V isits Requested Visits Authorized [id number] Closed Specialty Services Required 02/07/2023 03/08/2024 1 1 Encounter Details Date Type Department Care Team (Late st Contact Info) Description 02/24/2023 4:00 PM CDT Office Visit [facility] Epilepsy [address] [facility] 6th [place] [address] [place] [address] Adria Burleson MD 1 [facility] [address] [place] [address] Seizure (HCC) Social History Tobacco [...] on file Legal Sex Female 9:30 AM CONFERENCE SERVICES MANAGER Gender Identity Female 04/05/2022 6:17 [...] personally reviewed external/internal notes. 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
--- OUTSIDE RECORDS SUMMARY | 2024-07-15 17:42 | XMS_ITS | Encounter Summary ---
Author Organization [facility] Address [address] [place] [address] Care Team Providers Care Arabic Professor Name Role Phone Servando Torre MD Primary Care Provider [phone] Mariela Denton MD Unavailable [phone] -[phone] Lexis Barroso OD Unavailable +1- [phone] Reason for Visit * MRI/CAT/PET Scan (Routine) - Closed Specialty Diagnoses / Procedures Referred By Contac t Referred To Contact Procedures Neuro CT Outside Reference Karl Turner MD PhD [address] [facility] [address] [place] [address] Phone: tel: fax: Referral ID Status Reason Start Date Expiration Date Visits Re quested Visits Authorized [id number] Closed 02/17/2023 03/18/2024 1 1 Encounter Details Date Type Department Care Team (Latest Contact Info) Description 02/17/2023 5:44 PM CDT - 02/17/2023 11:59 PM CDT Hospital Encounter [facility]) [address] [place] [address] Discharge Disposition: Discharge to home or [...] on file Legal Sex Female 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 ??There will be no report generated by a [facility] Radiologist. Narrative RAD_PACS_[facility] - 02/17/2023 5:44 PM CDT EXAMINATION: ??Images For Reference Purposes Only us Karl Turner MD PhD IMG CT PROCEDURES Final Re sult [facility]_PACS[facility] documented in this encounter Visit Diagnoses Not on filedocumented in this encounter Care Teams Arabic Professor Relationship Specialty Start Date End Date Servando Torre MD 2 [facility] [address] [place] [address] PCP - General Family Medicine 06/19/22 Mariela Denton MD [address] [place] [address] Referring Physician Gastroenterology 06/19/22 Lexis Barroso OD [address], [place] [address] Professor Of Graphic Design 09/19/22 documented as of this encounter
--- OUTSIDE RECORDS SUMMARY | 2024-07-15 17:42 | XMS_ITS | Encounter Summary ---
Author Organization [facility] Address [address] [facility] [address] [place] [address] Care Team Providers Care Instrumentation Engineering Technician Name Role Phone Servando Torre MD Primary Care Provider +1- [phone] Mariela Denton MD Unavailable [phone] -[phone] Lexis Barroso OD Unavailable +1- [phone] Reason for Visit * Reason Onset Date Comments Medical Records Request 02/19/2023 Encounter Details Date Type Department Care Team (Late st Contact Info) Description 02/19/2023 Telephone [facility] Medical [facility] Primary Care at [address] [address] Servando Torre MD [address] [place] [address] [address] [place] [address] Medical Records Request Social History [...] on file Legal Sex Female 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 Inquiry if they havebeen received yet. Attempted to warm transfer to backline, no answer. Advised caller the office will return her call. Caller???s Call back #: [phone] Does message need to be routed? Yes-Action Needed documented in this encounter Plan of Treatment Not on file documented as of this encounter Visit Diagnoses Not on filedocumented in this encounter Care Teams Instrumentation Engineering Technician Relationship Specialty Start Date End Date Servando Torre MD [address] [facility] 130 [place] [address] PCP - General Family Medicine 06/19/22 Mariela Denton MD [address] [place] [address] Referring Physician Gastroenterology 06/19/22 Lexis Barroso OD [address] [place] [address] Oil Pipe Inspector Helper 09/19/22 documented as of this encounter
--- OUTSIDE RECORDS SUMMARY | 2024-07-15 17:42 | XMS_ITS | Encounter Summary ---
Author Organization [facility] Address [address] [facility] [address] [place] [address] Care Team Providers Care Can Runner Name Role Phone Servando Torre MD Primary Care Provider [phone]- [phone] Mariela Denton MD Unavailable [phone] -[phone] Lexis Barroso OD Unavailable +1- [phone] Reason for Visit * Reason Onset Date Comments Additional Services Or Orders 02/20/2023 Encounter Details Date Type Department Care Team (Late st Contact Info) Description 02/20/2023 Telephone [facility] Medical [facility] Primary Care at [address] [address] Servando Torre MD [address] [place] [address] [address] [place] [address] Additional Services Or Orders Social [...] on file Legal Sex Female 9:30 AM APPLICATION PROCESSOR Gender Identity Female 04/05/2022 6:17 PM CDT Sexual Orientation Straight 04/05/2022 6: 17 PM CDT documented as of this encounter Miscellaneous Notes * Telephone Encounter - David Everett - 02/20/2023 11:55 AM CDT Spoke to Anna Marie and faxed over the [place] order to fax # [phone]. Fax confirmation was successful * Telephone Encounter [...] Anna Marie stated patient is currently at [facility] for ultrasound and no order was received. Per standard work attempted to warm transfer 3x with no answer, sending High Priority mes yanet. Anna Marie is requesting urgent reply. Anna Marie requesting to please fax Ultrasound on Liver order dated 02/07/23 to [phone] Caller???s Call back #: [phone] ext [phone] Does message need to be routed? Yes-Action Needed documented in this encounter Plan of Treatment Not on file documented as of this encounter Visit Diagnoses Not on filedocumented in this encounter Care Teams Can Runner Relationship Specialty Start Date End Date Servando Torre MD [address] [address] PCP - General Family Medicine 06/19/22 Mariela Denton MD [facility] [address] [place] [address] Referring Physician Gastroenterology 06/19/22 Lexis Barroso OD [address] [place] [address] Wind Development Director 09/19/22 documented as of this encounter
--- OUTSIDE RECORDS SUMMARY | 2024-07-15 17:42 | XMS_ITS | Encounter Summary ---
Author Organization [facility] Healthcare Address [address] [place] [address] Care Team Providers Care Food Processing Plant Manager Name Role Phone Servando Torre MD Primary Care Provider [phone] Mariela Denton MD Unavailable +1 -[phone] Lexis Barroso OD Unavailable +1- [phone] Reason for Visit * MRI/CAT/PET Scan (Routine) - Closed Specialty Diagnoses / Procedures Referred By Contac t Referred To Contact Procedures Neuro CT Outside Reference Karl Turner MD PhD [address] [facility] [address] [place] [address] Phone: tel: fax: Referral ID Status Reason Start Date Expiration Date Visits Re quested Visits Authorized [id number] Closed 02/17/2023 03/18/2024 1 1 Encounter Details Date Type Department Care Team (Latest Contact Info) Description 02/17/2023 5:44 PM CDT - 02/17/2023 11:59 PM CDT Hospital Encounter [facility] Radiology [facility]) [address] [place] [address] Discharge Disposition: Discharge to home or [...] file Legal Sex Female 9:30 AM BUILDING MOVER Gender Identity Female 04/05/2022 6:17 PM CDT [...] only and have not been reviewed by [facility] Radiology. ??There will be no report generated by a [facility] Radiologist. Narrative RAD_PACS_[facility] - 02/17/2023 5:44 PM CDT EXAMINATION: ??Images For Reference Purposes Only us Karl Turner MD PhD IMG CT PROCEDURES Final Re sult [facility]_PACS[facility] documented in this encounter Visit Diagnoses Not on filedocumented in this encounter Care Teams Food Processing Plant Manager Relationship Specialty Start Date End Date Servando Torre MD 2 [facility] 130 [place] [address] PCP - General Family Medicine 06/19/22 Mariela Denton MD [address] [place] [address] Referring Physician Gastroenterology 06/19/22 Lexis Barroso OD [address], [place] [address] Apron Operator 09/19/22 documented as of this encounter
--- OUTSIDE RECORDS SUMMARY | 2024-07-15 17:42 | XMS_ITS | Encounter Summary ---
Author Organization [facility] Healthcare Address [address] [place] [address] Care Team Providers Care Industrial Court Magistrate Name Role Phone Servando Torre MD Primary Care Provider Mariela Denton MD Unavailable [phone] [phone] Lexis Barroso OD Unavailable +1- [phone] Encounter Details Date Type Department Care Team (Latest Contact Info) Description 02/17/2023 5:44 PM CDT - 02/17/2023 11:59 PM CDT Hospital Encounter [facility]) [address] [place] [address] Discharge Disposition: Discharge to home or self [...] on file Legal Sex Female 9:30 AM WELFARE CENTRE MANAGER Gender Identity Female 04/05/2022 6:17 PM [...] on filedocumented in this encounter Care Teams Industrial Court Magistrate Relationship Specialty Start Date End Date Servando Torre MD [facility] [address] PCP - General Family Medicine 06/19/22 Mariela Denton MD [facility] [address] [place] [address] Referring Physician Gastroenterology 06/19/22 Lexis Barroso OD [address] [place] [address] Medical Instrument Technician 09/19/22 documented as of this encounter
--- OUTSIDE RECORDS SUMMARY | 2024-07-15 17:42 | XMS_ITS | Encounter Summary ---
Author Organization [facility] Healthcare Address [address] [place] [address] Care Team Providers Care Industrial Management Teacher Name Role Phone Servando Torre MD Primary Care Provider [phone] Mariela Denton MD Unavailable [phone] -[phone] Lexis Barroso OD Unavailable +1- [phone] Reason for Visit * MRI/CAT/PET Scan (Routine) - Closed Specialty Diagnoses / Procedures Referred By Contac t Referred To Contact Procedures Neuro MR Outside Reference Karl Turner MD PhD [address] [facility] [address] [place] [address] Phone: tel: fax: Referral ID Status Reason Start Date Expiration Date Visits Re quested Visits Authorized [id number] Closed 02/17/2023 03/18/2024 1 1 Encounter Details Date Type Department Care Team (Latest Contact Info) Description 02/17/2023 5:44 PM CDT - 02/17/2023 11:59 PM CDT Hospital Encounter [facility] Radiology [facility]) [address] [place] [address] Discharge Disposition: Discharge to home or [...] file Legal Sex Female 9:30 AM INDUSTRIAL HYGIENE MANAGER Gender Identity Female 04/05/2022 6:17 PM [...] have not been reviewed by [facility] Radiology. ??There will be no report generated by a [facility] Radiologist. Narrative RAD_PACS_[facility] - 02/17/2023 5:44 PM CDT EXAMINATION: ??Images For Reference Purposes Only us Karl Turner MD PhD IMG MRI PROCEDURES Final R esult [facility] documented in this encounter Visit Diagnoses Not on filedocumented in this encounter Care Teams Industrial Management Teacher Relationship Specialty Start Date End Date Servando Torre MD 2 [facility] [address] [place] [address] PCP - General Family Medicine 06/19/22 Mariela Denton MD [address] [place] [address] Referring Physician Gastroenterology 06/19/22 Lexis Barroso OD [address], [place] [address] Bead Wire Taper 09/19/22 documented as of this encounter
--- OUTSIDE RECORDS SUMMARY | 2024-07-15 17:42 | XMS_ITS | Encounter Summary ---
Author Organization [facility] Healthcare Address [address] [place] [address] Care Team Providers Care Agricultural Produce Washer Name Role Phone Servando Torre MD Primary Care Provider [phone] Mariela Denton MD Unavailable +1 -[phone] Lexis Barroso OD Unavailable +1- [phone] Reason for Referral * Neurology (Routine) - Closed Specialty Diagnoses / Procedures Referred By Angel braswell Referred To Contact Diagnoses Seizure (HCC) Procedures EEG Adria Burleson MD [address] [place] [address] Phone: tel: fax: [address] [address] Referral ID Status Reason Start Date Expiration Date Visits Re quested Visits Authorized [id number] Closed 02/27/2023 03/28/2024 1 1 Reason for Visit * Neurology (Routine) - Closed Specialty Diagnoses / Procedures Referred By Contclemencia braswell Referred To Contact Diagnoses Seizure (HCC) Procedures EEG Adria Burleson MD [address] [place] [address] Phone: tel: fax: [facility] 1 [place] [address] Referral ID Status Reason Start Date Expiration Date Visits Re quested Visits Authorized [id number] Closed 02/27/2023 03/28/2024 1 1 Encounter Details Date Type Department Care Team (Latest Contact Info) Description 03/07/2023 1:49 PM CDT - 03/07/2023 11:59 PM CDT Hospital [facility] [place] [facility]) [address] [place] [address] Ellie Sun Seizure (HCC) Discharge Disposition: Discharge [...] on file Legal Sex Female 9:30 AM ELECTRICAL MAINTENANCE MAN Gender Identity Female 04/05/2022 6:17 PM [...] Extended EEG Report Patient Name: Lisa Allen [facility] Medical Record Number (MRN): [id number] [facility] Record: [id number] Date of (): 1945 EEG Date: 03/07/2023 Ordering Provider: Adria Burleson MD CC: Servando Torre Start Time: 03/07/2023 3:12:54 PM ? End Time: 03/07/2023 4:13:22 PM Introduction: Ms. Allen is a 77 y.o. female with a history of one lifetime seizure (unclear whether physiological vs epileptic) in the setting of high altitude (trip to [place]) who is presenting to epilepsy clinic for seizure evaluation and management. EEG was performed to evaluate for seizures. This is a 32 channel EEG recording acquired on a Zebtab EEG-1200 acquisition system. Scalp electrodes were placed [...] convulsions documented in this encounter Care Teams Agricultural Produce Washer Relationship Specialty Start Date End Date Servando Torre MD [address] [facility] 130 [place] [address] PCP - General Family Medicine 06/19/22 Mariela Denton MD [facility] [address] [place] [address] Referring Physician Gastroenterology 06/19/22 Lexis Barroso OD [address] [place] [address] Wooden Boat Builder 09/19/22 documented as of this encounter
--- OUTSIDE RECORDS SUMMARY | 2024-07-15 17:42 | XMS_ITS | Encounter Summary ---
Author Organization [facility] Address [address] [place] [address] Phone Care Team Providers Care Receiving Inspector Name Role Phone Servando Torre MD Primary Care Provider +1 [phone] Mariela Denton MD Unavailable [phone] -[phone] Lexis Barroso OD Unavailable +1- [phone] Encounter Details Date Type Department Care Team (Late st Contact Info) Description 03/07/2023 Documentation [facility] Epilepsy [address] [facility] 6th [place] [address] [place] [address] Adria Burleson MD 1 [facility] [address] [place] [address] Social History Tobacco Use Types [...] on file Legal Sex Female 9:30 AM HOIST CYLINDER LOADER Gender Identity Female 04/05/2022 6:17 PM CDT [...] on filedocumented in this encounter Care Teams Receiving Inspector Relationship Specialty Start Date End Date Servando Torre MD [address] [address] PCP - General Family Medicine 06/19/22 Mariela Denton MD [address] [place] [address] Referring Physician Gastroenterology 06/19/22 Lexis Barroso OD [address] [place] [address] Reservoir Engineering Manager 09/19/22 documented as of this encounter
--- OUTSIDE RECORDS SUMMARY | 2024-07-15 17:42 | XMS_ITS | Encounter Summary ---
Author Organization [facility] Healthcare Address [address] [place] [address] Care Team Providers Care Appointment Specialist Name Role Phone Servando Torre MD Primary Care Provider +1- [phone] Mariela Denton MD Unavailable +1 -[phone] Lexis Barroso OD Unavailable +1- [phone] Reason for Visit * Reason Comments Vomiting Encounter Details Date Type Department Care Team (Late st Contact Info) Description 03/08/2023 12:09 AM CDT - 03/08/2023 3:58 AM CDT Emergency [facility] Emergency Department 1 [place] [address] Silver Montana MD [address] [place] [address] Seizure (HCC) (Primary Dx) Discharge Disposition: Discharge [...] on file Legal Sex Female 9:30 AM INDEPENDENT VIDEO PRODUCER Gender Identity Female 04/05/2022 6:17 PM CDT [...] * Seizure, New Onset, Unknown Cause (Adult) (Niuean) documented in this encounter Medications at Time [...] they were about a month ago in [place], and the patient was found 1 day unresponsive, and was admitted to a hospital in [place], where she stayed for 3 days. she [...] was happening even before she went to [place], but now is more often. The patient [...] She was seen at a hospital in [place] that day. documented in this encounter Miscellaneous [...] kennedy-white matter. There is no intracranial hemorrhage. ?There [...] AM T: ??03/08/2023 2:34 AM Report ID: [id number] Reading Location: ??[id number] Procedure Note Radha Mendes MD - 03/08/2023 [...] by Radha Mendes M.D. SN: Report ID: [id number] Reading Location: [id number] Silver Montana MD IMG CT PROCEDURES Final Resu lt * eGFR (03/08/2023 12:37 AM CDT) eGFR 88 mL/min/1. 73 m2 AILEEN RODRIGUEZ (AYDLETT) Comment: Interpretive Data Reference Interval Normal ?>/= [...] BLOOD ORDERABLE S Final Result AILEEN RODRIGUEZ ([place]) 1 [facility] [place] [address] * Differential, auto (03/08/2023 12:37 AM CDT) Neutrophil abs 5.7 1.7 - 6.5 K/cumm AILEEN RODRIGUEZ (AY[place]) Imm gran abs 0.0 0.0 - 0.1 [...] S Final Result AILEEN RODRIGUEZ ([place]) 1 [facility] [place] [address] * Magnesium (03/08/2023 12:37 AM CDT) Magnesium 1.9 1.4 - 2.5 mg/dL [facility] ([place]) Blood 03/08/2023 12:3 7 AM CDT 03/08/2023 12:46 AM CDT Jim Dobson MD LAB BLOOD ORDERABLE S Final Result Performing Organization Address City/[facility] Co de Phone Number AILEEN RODRIGUEZ ([place]) 1 [facility] [place] [address] * (ABNORMAL) Comprehensive metabolic panel (03/08/2023 12:37 [...] MD LAB BLOOD ORDERABLE S Final Result [facility] ([place]) 1 [facility] [place] [address] * (ABNORMAL) CBC with auto differential (03/08/2023 [...] ORDERABLE S Final Result Performing Organization Address City/[facility] Co de Phone Number AILEEN RODRIGUEZ ([place]) 1 [facility] [place] [address] * ECG 12 lead (03/08/2023 12:31 AM CDT) 03/08/2023 12:3 1 AM CDT Narrative [facility] - 03/08/2023 12:14 PM CDT Vent Rate: 76 bpm RR Interval: 784 msec NV Interval: 143 msec QRS Duration: 98 msec QT Interval: 375 msec QTC Interval: 405 msec P-R-T Ireton: 48 - 26 - 24 degrees SINUS RHYTHM NORMAL ECG Electronically Signed By: Austin Horta Jim Dobson MD ECG ORDERABLES Fin al Result Performing Organization Address [facility] Co de Phone Number [facility] [place] documented in this encounter Visit Diagnoses Diagnosis [...] RN) documented in this encounter Care Teams Appointment Specialist Relationship Specialty Start Date End Date Servando Torre MD [facility] [address] [address] PCP - General Family Medicine 06/19/22 Mariela Denton MD [facility] [address] [place] [address] Referring Physician Gastroenterology 06/19/22 Lexis Barroso OD [address] [place] [address] Acid Recovery Operator 09/19/22 documented as of this encounter
--- OUTSIDE RECORDS SUMMARY | 2024-07-15 17:42 | XMS_ITS | Encounter Summary ---
Author Organization [facility] Medical Group Address [address] [facility] [address] [place] [address] Care Team Providers Care Filling Technician Name Role Phone Servando Torre MD Primary Care Provider +1- [phone] Mariela Denton MD Unavailable +1 -[phone] Lexis Barroso OD Unavailable +1- [phone] Reason for Visit * Reason Onset Date Comments Medical Question/Miscellaneous 03/10/2023 Medical Records Request 03/10/2023 Encounter Details Date Type Department Care Team (Late st Contact Info) Description 03/10/2023 Telephone [facility] Primary Care at [address] [address] Servando Torre MD [address] [place] [address] [address] [place] [address] Medical Question/Miscellaneous ; Medical Records [...] on file Legal Sex Female 9:30 AM 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 [facility] Date Needed: as soon as possible Delivery Method: Fax Fax number to use for return of records: [phone] Caller???s Callback #: [phone] Additional Comments/Concerns: n/a Does the message need to be routed? Yes-Action Needed * Telephone Encounter - Regina Toscano MA - 03/11/2023 10:12 AM CDT [facility] * Telephone Encounter - Dennis Dodge - 03/10/2023 4:15 PM CDT Medical Question/Miscellaneous Caller???s Concern: Avani with [facility] received demographic page and referral. There are no discipline orders such as nursing or therapy or visit note for the patient. Please fax. Caller???s Call back #: [phone] Does message need to be routed? Yes-Action Needed documented in this encounter Plan of Treatment Not on file documented as of this encounter Visit Diagnoses Not on filedocumented in this encounter Care Teams Filling Technician Relationship Specialty Start Date End Date Servando Torre MD [facility] [address] [address] PCP - General Family Medicine 06/19/22 Mariela Denton MD [address] [place] [address] Referring Physician Gastroenterology 06/19/22 Lexis Barroso OD [address] [place] [address] Wheel Lacer And Truer 09/19/22 documented as of this encounter
--- OUTSIDE RECORDS SUMMARY | 2024-07-15 17:42 | XMS_ITS | Encounter Summary ---
Author Organization [facility] Medical Group Address [address] [facility] [address] [place] [address] Care Team Providers Care Flavor Room Worker Name Role Phone Servando Torre MD Primary Care Provider +1 [phone] Mariela Denton MD Unavailable +1 -[phone] Lexis Barroso OD Unavailable +1- [phone] Reason for Referral * Consultation (Routine) - Closed Specialty Diagnoses / Procedures Referred By Angel braswell Referred To Contact Cardiology Diagnoses Syncope, unspecified syncope type Marixa San NP [address] [place] [address] [address] [place] [address] Phone: tel: fax: [facility] Cardiology at [address] [place] [address] Phone: tel: fax: Referral ID Status Reason Start Date Expiration Date V isits Requested Visits Authorized [id number] Closed Specialty Services Required 03/06/2023 04/04/2024 1 1 Question Answer Please select the performing region: [facility] [[id number]] Please select the performing department: [facility] [[id number]] # of visits: 1 Encounter Details Date Type Department Care Team (Late st Contact Info) Description 03/06/2023 Orders Only [facility] Primary Care at [address] [id number] Marixa San NP [address] [facility] [address] [place] [address] Syncope, unspecified syncope type (Primary Dx) Social [...] on file Legal Sex Female 9:30 AM HOME HEALTH TRAVEL PT Gender Identity Female 04/05/2022 6:17 PM CDT [...] Primary documented in this encounter Care Teams Flavor Room Worker Relationship Specialty Start Date End Date Servando Torre MD [address] [facility] [address] [place] [address] PCP - General Family Medicine 06/19/22 Mariela Denton MD [address] [place] [address] Referring Physician Gastroenterology 06/19/22 Lexis Barroso OD [address] [place] [address] Control Engineer 09/19/22 documented as of this encounter
--- OUTSIDE RECORDS SUMMARY | 2024-07-15 17:42 | XMS_ITS | Encounter Summary ---
Author Organization [facility] Medical Group Address [address] [facility] [address] [place] [address] Care Team Providers Care Occ Med Physician Name Role Phone Servando Torre MD Primary Care Provider +1- [phone] Mariela Denton MD Unavailable +1 -[phone] Lexis Barroso OD Unavailable +1- [phone] Reason for Visit * Reason Onset Date Comments Medical Question/Miscellaneous 02/21/2023 Encounter Details Date Type Department Care Team (Late st Contact Info) Description 02/21/2023 Telephone [facility] Medical [facility] Primary Care at [address] [address] Servando Torre MD [address] [place] [address] [address] [place] [address] Medical Question/Miscellaneous Social History Tobacco [...] file Legal 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 * Telephone Encounter - Mayra Winters - 02/21/2023 12:16 PM CDT Medical Question/Miscellaneous Caller???s Concern: [facility] calling to inform doctor that due to staffing they are unable to see this patient in 's zip code area Caller???s Call back #: [phone] Does message need to be routed? Yes-FYI Only documented in this encounter Plan of Treatment Not on file documented as of this encounter Visit Diagnoses Diagnosis Balance problem- Primary Abnormality of gait Multiple fractures of ribs associated with chest compression and cardiopulmonary resuscitation documented in this encounter Care Teams Occ Med Physician Relationship Specialty Start Date End Date Servando Torre MD [address] [facility] [address] [place] [address] PCP - General Family Medicine 06/19/22 Mariela Denton MD [address] [place] [address] Referring Physician Gastroenterology 06/19/22 Lexis Barroso OD [address] [place] [address] Eyeletter 09/19/22 documented as of this encounter
--- OUTSIDE RECORDS SUMMARY | 2024-07-15 17:42 | XMS_ITS | Encounter Summary ---
Author Organization [facility] Medical Group Address [address] [facility] [address] [place] [address] Care Team Providers Care Weigher Alloy Name Role Phone Servando Torre MD Primary Care Provider +1- [phone] Mariela Denton MD Unavailable +1 -[phone] Lexis Barroso OD Unavailable +1- [phone] Reason for Referral * Home Health (Routine) - Closed Specialty Diagnoses / Procedures Referred By Contac t Referred To Contact Home Health Services / Home Health and Hospice Diagnoses Seizure (HCC) Multiple fractures of ribs associated with chest compression and cardiopulmonary resuscitation Balance problem Servando Torre MD [address] [place] [address] Phone: tel: fax: [facility] Home Care Services [facility] [address] [place] [address] Referral ID Status Reason Start Date Expiration Date V isits Requested Visits Authorized [id number] Closed Specialty Services Required 02/20/2023 03/21/2024 1 [...] Description 02/20/2023 2:15 PM CDT Office Visit [facility] Primary Care at [address] [phone] Servando Torre MD [address] [place] [address] Seizure (HCC) (Primary Dx); Multiple fractures [...] on file Legal Sex Female 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 You may receive a phone call, text, MYCHART message, or e-mail asking about your care today. We would love to hear your feedback on how EXCELLENT your care wastoday! Wishing you better health, always. Dr. Torre * Attachments The following attachments cannot be sent through Care Everywhere. * Acetaminophen/Codeine (By mouth) (Prydeinig) * Concussion (AfterCare(R) Instructions(ER/ED)) (Prydeinig) documented in this encounter Ordered Prescriptions Prescription [...] staying with her since she returned from [place]. She still having some rib pain from the fractures, but that is improved. Her breathing is much better than when she was at [place], she is not need any oxygen. She [...] tremors, seizures (no seizures since returned from [place]),syncope, facial asymmetry, speech difficulty, light- headedness and [...] on current clinical standards) Testing performed by: [facility], [address] [place]., [address] Organism 02/12/2023 (CLINICALLY INSIGNIFICANT GROWTH Final eGFR [...] Will check on neurology EEG ordered for [facility] No report of seizure activity in [...] office note has been partially dictated using M*BioSignia software, and as a result portions of the record may have been created with this software. Occasional wrong-word or 'lnrwx-j-zrlm' substitutions may have occurred due to the [...] gait documented in this encounter Care Teams Weigher Alloy Relationship Specialty Start Date End Date Servando Torre MD [facility] [address] PCP - General Family Medicine 06/19/22 Mariela Denton MD [facility] [address] [place] [address] Referring Physician Gastroenterology 06/19/22 Lexis Barroso OD [address] [place] [address] Dinkey Engineer 09/19/22 documented as of this encounter
--- OUTSIDE RECORDS SUMMARY | 2024-07-15 17:42 | XMS_ITS | Encounter Summary ---
Author Organization [facility] Healthcare Address [address] [place] [address] Care Team Providers Care Staff Air Defense Officer Name Role Phone Servando Torre MD Primary Care Provider Mariela Denton MD Unavailable +1 -[phone] Lexis Barroso OD Unavailable +1- [phone] Encounter Details Date Type Department Care Team (Latest Contact Info) Description 02/17/2023 5:44 PM CDT - 02/17/2023 11:59 PM CDT Hospital Encounter [facility] [address] [place] [address] Discharge Disposition: Discharge to home or self [...] on file Legal Sex 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 ??There will be no report generated by a [facility] Radiologist. Narrative RAD_PACS_[facility] - 02/17/2023 5:44 PM CDT EXAMINATION: ??Images For Reference Purposes Only us Kral Turner MD PhD IMG XR PROCEDURES Final Re sult [facility] documented in this encounter Visit Diagnoses Not on filedocumented in this encounter Care Teams Staff Air Defense Officer Relationship Specialty Start Date End Date Servando Torre MD [facility] [address] [place] [address] PCP - General Family Medicine 06/19/[address] [facility] [address] [place] [address] Referring Physician Gastroenterology 06/19/22 Lexis Barroso OD [address] [place] [address] Community Organizer 09/19/22 documented as of this encounter
--- OUTSIDE RECORDS SUMMARY | 2024-07-15 17:42 | XMS_ITS | Encounter Summary ---
Author Organization [facility] Healthcare Address [address] [place] [address] Care Team Providers Care Gatekeeper Name Role Phone Servando Torre MD Primary Care Provider [phone] Mariela Denton MD Unavailable +1 -[phone] Lexis Barroso OD Unavailable +1- [phone] Encounter Details Date Type Department Care Team (Latest Contact Info) Description 02/17/2023 5:44 PM CDT - 02/17/2023 11:59 PM CDT Hospital Encounter [facility]) [address] [place] [address] Discharge Disposition: Discharge to home or self [...] on file Legal 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 ??There will be no report generated by a [facility] Radiologist. Narrative RAD_PACS_[facility] - 02/17/2023 5:44 PM CDT EXAMINATION: ??Images For Reference Purposes Only us Karl Turner MD PhD IMG XR PROCEDURES Final Re sult [facility] documented in this encounter Visit Diagnoses Not on filedocumented in this encounter Care Teams Gatekeeper Relationship Specialty Start Date End Date Servando Torre MD [facility] [address] [place] [address] PCP - General Family Medicine 06/19/22 Mariela Denton MD [facility] [address] [place] [address] Referring Physician Gastroenterology 06/19/22 Lexis Barroso OD [address] [place] [address] Review Manager 09/19/22 documented as of this encounter
--- OUTSIDE RECORDS SUMMARY | 2024-07-15 17:42 | XMS_ITS | Encounter Summary ---
Author Organization [facility] Healthcare Address [address] [place] [address] Care Team Providers Care Mechanical Maintenance Worker Name Role Phone Servando Torre MD Primary Care Provider Mariela Denton MD Unavailable +1 -[phone] Lexis Barroso OD Unavailable +1- [phone] Encounter Details Date Type Department Care Team (Latest Contact Info) Description 02/17/2023 5:44 PM CDT - 02/17/2023 11:59 PM CDT Hospital Encounter [facility] [address] [place] [address] Discharge Disposition: Discharge to home or self [...] on file Legal Sex 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 ??There will be no report generated by a [facility] Radiologist. Narrative RAD_PACS_[facility] - 02/17/2023 5:44 PM CDT EXAMINATION: ??Images For Reference Purposes Only us Karl Turner MD PhD IMG XR PROCEDURES Final Re sult [facility] documented in this encounter Visit Diagnoses Not on filedocumented in this encounter Care Teams Mechanical Maintenance Worker Relationship Specialty Start Date End Date Servando Torre MD [facility]2 [facility] [address] [place] [address] PCP - General Family Medicine 06/19/22 Mariela Denton MD [facility] [address] [place] [address] Referring Physician Gastroenterology 06/19/22 Lexis Barroso OD [address] [place] [address] Medical Care Manager 09/19/22 documented as of this encounter
--- OUTSIDE RECORDS SUMMARY | 2024-07-15 17:42 | XMS_ITS | Encounter Summary ---
Author Organization [facility] Medical Group Address [address] [facility] [address] [place] [address] Care Team Providers Care Auger Machine Offbearer Name Role Phone Servando Torre MD Primary Care Provider +1- [phone] Mariela Denton MD Unavailable +1 -[phone] Lexis Barroso OD Unavailable +1- [phone] Encounter Details Date Type Department Care Team (Late st Contact Info) Description 02/21/2023 Orders Only [facility] Medical [facility] Primary Care at [place] [address] [place] [address] Marixa San NP [address] 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 [place] [address] [place] [address] PCP - General Family Medicine 06/19/22 Mariela Denton MD [address] [facility] [address] [place] [address] Referring Physician Gastroenterology 06/19/22 Lexis Barroso OD [address] [place] [address] Public Speaker 09/19/22 documented as of this encounter
--- OUTSIDE RECORDS SUMMARY | 2024-07-15 17:43 | XMS_ITS | Encounter Summary ---
Author Organization [facility] Medical Group Address [address] [facility] [address] [place] [address] Care Team Providers Care Pantographer Name Role Phone Servando Torre MD Primary Care Provider +1- [phone] Mariela Denton MD Unavailable +1 -[phone] Lexis Barroso OD Unavailable +1- [phone] Encounter Details Date Type Department Care Team (Late st Contact Info) Description 11/08/2022 Telephone [facility] Primary Care at [place] [address] [place] [address] Servando Torre MD [address] [place] [address] [address] [place] [address] Social History Tobacco Use Types [...] on file Legal Sex Female 9:30 AM UNDERWRITING SUPPORT SPECIALIST Gender Identity Female 04/05/2022 6:17 PM [...] for PT. It can be faxed to [phone]. If you have any questions please call [phone] and ask for Saul. Thank you * Telephone Encounter - Vero Antonio - 11/08/2022 8:47 AM CDT [facility] , pt has a apt at 12 pm , please advise thanks. [phone] documented in this encounter Plan of Treatment Not on file documented as of this encounter Visit Diagnoses Diagnosis Balance problem- Primary Abnormality of gait documented in this encounter Care Teams Pantographer Relationship Specialty Start Date End Date Servando Torre MD [address] [address] PCP - General Family Medicine 06/19/22 Mariela Denton MD [address] [place] [address] Referring Physician Gastroenterology 06/19/22 Lexis Barroso OD [address] [place] [address] Supervisor Food Checkers And Cashiers 09/19/22 documented as of this encounter
--- OUTSIDE RECORDS SUMMARY | 2024-07-15 17:43 | XMS_ITS | Encounter Summary ---
Author Organization [facility] Healthcare Address [address] [place] [address] Care Team Providers Care Balloon Seller Name Role Phone Servando Torre MD Primary Care Provider Mariela Denton MD Unavailable +1 -[phone] Lexis Barroso OD Unavailable +- [phone] Reason for Visit * Auth/Cert (Routine) Specialty Diagnoses / Procedures Referred By Contac t Referred To Contact Diagnoses Chronic ulcerative colitis with complication, unspecified location (HCC) Chronic ulcerative colitis with complication, unspecified location (HCC) [K51.919] Procedures RI COLONOSCOPY FLX DX W/COLLJ SPEC WHEN PFRMD RI COLONOSCOPY W/BIOPSY SINGLE/MULTIPLE COLONOSCOPY Referral ID Status Reason Start Date Expiration Date Visits Re quested Visits Authorized [id number] 1 1 Encounter Details Date Type Department Care Team (Late st Contact Info) Description 11/29/2022 10:21 AM CDT Anesthesia Event [facility] Endoscopy [address] [place] [address] Aubrey Joyner MD [address] [facility] [address] [place] [address] Anesthesia Record Procedure Summary Procedure [...] on file Legal Sex Female 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 AM 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 Gender Identity Female 04/05/2022 6:17 PM CDT Sexual Orientation Straight 04/05/2022 6: 17 PM CDT documented as of this encounter OR Notes * Anesthesia Postprocedure Evaluation - Aubrey Joyner MD - 11/29/2022 11:45 AM CDT Patient: Lisa Allen Procedure Summary Date: 11/29/22 Room / Location: [facility] ENDOSCOPY ROOM [facility] ENDOSCOPY Anesthesia Start: 1021 Anesthesia Stop: 1046 [...] check glucose with glucose monitor and strip mPowaToTitanX Engine Cooling Ultra Test strip -- 08/16/22 -- Servando [...] Medication protocol when under care of a GARMENT CUTTER Planned anesthesia: General Informed Consent: Anesthesia plan and risks discussed with patient. Plan and Consent Comments: Adv age, FRAIL; [place] Consent and Attending signature: I and/or my [...] mL/hr documented in this encounter Care Teams Balloon Seller Relationship Specialty Start Date End Date Servando Torre MD [address] [facility] [address] [place] [address] PCP - General Family Medicine 06/19/22 Mariela Denton MD [address] [place] [address] Referring Physician Gastroenterology 06/19/22 Lexis Barroso OD [address] [place] [address] Township Clerk 09/19/22 documented as of this encounter
--- OUTSIDE RECORDS SUMMARY | 2024-07-15 17:43 | XMS_ITS | Encounter Summary ---
Author Organization [facility] Address [address] [place] [address] Phone Care Team Providers Care Fermentation Operator Name Role Phone Servando Torre MD Primary Care Provider +1 [phone] Mariela Denton MD Unavailable +1 -[phone] Reason for Visit * Reason Onset Date Comments Infusion & Covid 07/02/2022 Encounter Details Date Type Department Care Team (Late st Contact Info) Description 07/02/2022 Telephone [facility] Gastroenterology 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 Patient is calling to schedule her Entyvio, [...] line in case she needs additional clarification. ARY MEDIA TECHNICIAN documented in this encounter Plan of Treatment Not on file documented as of this encounter Visit Diagnoses Not on filedocumented in this encounter Care Teams Fermentation Operator Relationship Specialty Start Date End Date Servando Torre MD [facility] [address] PCP - General Family Medicine 06/19/22 Mariela Denton MD [address] [place] [address] Referring Physician Gastroenterology 06/19/22 documented as of this encounter
--- OUTSIDE RECORDS SUMMARY | 2024-07-15 17:43 | XMS_ITS | Encounter Summary ---
Author Organization [facility] Medical Group Address [address] [facility] [address] [place] [address] Care Team Providers Care Conveyor Console Operator Name Role Phone Servando Torre MD Primary Care Provider Mariela Denton MD Unavailable +1 -[phone] Encounter Details Date Type Department Care Team (Late st Contact Info) Description 06/23/2022 Orders Only [facility] Medical Group Primary Care at [address] [address] Servando Torre MD [address] [place] [address] [address] [place] [address] Chronic left shoulder pain (Primary [...] on file Legal 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 [address] [place] [address] PCP - General Family Medicine 06/19/22 Mariela Denton MD [address] [place] [address] Referring Physician Gastroenterology 06/19/22 documented as of this encounter
--- OUTSIDE RECORDS SUMMARY | 2024-07-15 17:43 | XMS_ITS | Encounter Summary ---
Author Organization [facility] Medical [facility] Address [address] [facility] [address] [place] [address] Care Team Providers Care Frequency Checker Name Role Phone Servando Torre MD Primary Care Provider +1- [phone] Mariela Denton MD Unavailable +1 -[phone] Reason for Referral * Procedure (Routine) - Closed Specialty Diagnoses / Procedures Referred By Angel braswell Referred To Contact Diagnoses Bilateral impacted cerumen Procedures Ear Cerumen Removal Servando Torre MD [address] [place] [address] [address] [place] [address] Phone: tel: fax: [facility] Referral ID Status Reason Start Date Expiration Date Visits Re quested Visits Authorized [id number] Closed 09/11/2022 10/11/2023 1 1 MANAGER Reason for Visit * Reason Comments Cerumen Impaction Pt is here to have e ar cleaning. She saw an analysis intern and they recommend she see an ENT for wax build up because the wax was close to her ear drum. Encounter Details Date Type Department Care Team (Late Contact Info) Description 09/11/2022 10:00 AM CNC MANAGER Office Visit [facility] Primary Care at [address] [id number] Servando Torre MD [address] [place] [address] [address] [place] [address] Bilateral impacted cerumen (Primary Dx) Social History [...] on file Legal Sex Female 9:30 AM CNC MANAGER Gender Identity Female 04/05/2022 6:17 PM CDT Sexual Orientation Straight 04/05/2022 6: 17 PM CDT documented as of this encounter Last Filed Vital Signs Vital Sign Reading Time Taken Comments Blood Pressure 134/80 09/11/2022 10:13 AM CNC MANAGER Pulse 75 09/11/2022 10:13 AM CNC MANAGER Temperature 36.8 ??C (98.3 ??F) 09/11/2022 1 0:13 AM CNC MANAGER Respiratory Rate - - Oxygen Saturation 98% 09/11/2022 10: 13 AM CNC MANAGER Inhaled Oxygen Concentration - - Weight 70.7 kg (155 lb 12.8 oz) 023 10:13 AM CNC MANAGER Height 157.5 cm (5' 2 ) 09/11/2022 10:1 3 AM CNC MANAGER Body Mass Index 28.5 09/11/2022 10:13 AM CNC MANAGER documented in this encounter Patient Instructions * Patient Instructions* Servando Torre MD - 09/11/2022 10:00 AM CNC MANAGER Successful removal; there is residual cerumen, but not impacted Advising to use at-home earwax cleanser kit once weekly Examples: WaxRx, Debrox, Murine Will re-look next week at [facility] Thanks for coming in today! My medical assistants and I are thankful you have trusted us with your care, and hope that you received EXCELLENT care today! Please do not hesitate to call if you have any questions or concerns at [phone]. You may receive a phone call, text, MYCHART message, or e-mail asking about your care today. We would love to hear your feedback on how EXCELLENT your care wastoday! Wishing you better health, always. Dr. Torre MANAGER * Attachments The following attachments cannot be sent through Care Everywhere. * Cerumen Impaction (General Information) (Malagasy) documented in this encounter Progress Notes * Servando Torre MD - 09/11/2022 10:00 AM CST Images from the original note were not included. Subjective/Objective Patient ID: Lisa Allen is a 77 y.o. female. Chief Complaint Cerumen Impaction (Pt is here to have ear cleaning. She saw an analysis intern and they recommend she see an ENT for wax build up because the wax was close to her ear drum.) Lisa sent here from her analysis intern, who told her with her impacted ears [...] office note has been partially dictated using Office Center software, and as a result portions of the record may have been created with this software. Occasional wrong-word or '[id number]' substitutions may have occurred due to the inherent limitations of voice recognition software. Read the chartcarefully and recognize, using context, where substitutions have occurred. MANAGER documented in this encounter Procedure Notes [...] the procedure well with no immediate complications MANAGER documented in this encounter Plan of Treatment Not on file documented as of this encounter Procedures Procedure Name Priority Date/Time Associated Diagnosis Comments NM REMOVAL IMPACTED CERUMEN INSTRUMENTATION UNILAT Routine 09/11/2022 10:00 AM CNC MANAGER Bilateral impacted cerumen documented in this encounter Results * NM REMOVAL IMPACTED CERUMEN INSTRUMENTATION UNILAT (09/11/2022 10:00 AM CNC MANAGER) Narrative Servando Torre MD - 09/11/2022 10:00 AM CNC MANAGER Servando Torre MD ? 09/13/2022 ??5:49 [...] documented as of this encounter Care Teams Frequency Checker Relationship Specialty Start Date End Date Servando Torre MD [address] [facility] [address] [place] [address] PCP - General Family Medicine 06/19/22 Mariela Denton MD [address] [place] [address] Referring Physician Gastroenterology 06/19/22 documented as of this encounter
--- OUTSIDE RECORDS SUMMARY | 2024-07-15 17:43 | XMS_ITS | Encounter Summary ---
Author Organization [facility] Address [address] [place] [address] Phone Care Team Providers Care Ceramic Designer Name Role Phone Servando Torre MD Primary Care Provider Mariela Denton MD Unavailable +1 -[phone] Lexis Barroso OD Unavailable +1- [phone] Encounter Details Date Type Department Care Team (Late st Contact Info) Description 09/20/2022 Orders Only [facility] Gastroenterology [address] [facility] 12th [place] [address] [place] [phone] Lexis Renteria, ELMO Social History Tobacco Use [...] on file Legal Sex Female 9:30 AM LITHOGRAPHIC PROOFER Gender Identity Female 04/05/2022 6:17 PM CDT [...] documented as of this encounter Care Teams Ceramic Designer Relationship Specialty Start Date End Date Servando Torre MD [address] [facility] [address] [place] [address] PCP - General Family Medicine 06/19/22 Mariela Denton MD [address] [place] [address] Referring Physician Gastroenterology 06/19/22 Lexis Barroso OD [address] [address] Combine Inspector 09/19/22 documented as of this encounter
--- OUTSIDE RECORDS SUMMARY | 2024-07-15 17:43 | XMS_ITS | Encounter Summary ---
Author Organization [facility] Address [address] [place] [address] Phone Care Team Providers Care Ballast Regulator Operator Name Role Phone Servando Torre MD Primary Care Provider +1 [phone] Mariela Denton MD Unavailable +1 -[phone] Lexis Barroso OD Unavailable +1- [phone] Encounter Details Date Type Department Care Team (Late st Contact Info) Description 10/10/2022 11:30 AM CDT Lab [facility] Endocrinology Metabolism and Lipid [address] [facility] 12th [place] [address] [place] [address] Ulcerative colitis with complication, unspecified [...] file Legal Sex Female 9:30 AM SUPERINTENDENT ELECTRIC POWER Gender Identity Female 04/05/2022 6:17 PM CDT [...] AM CDT 10/10/2022 12:04 PM CDT Narrative [facility] CORE [facility] - 10/10/2022 1:25 PM CDT Current interpretive data was last updated June 29, 2021. Mariela Denton MD LAB BLOOD ORDERABLE S Final Result Performing Organization Address City/[facility] Co de Phone Number [facility] * [...] ORDERABLE S Final Result Performing Organization Address [facility] Co de Phone Number [facility] documented [...] documented as of this encounter Care Teams Ballast Regulator Operator Relationship Specialty Start Date End Date Servando Torre MD [address] [facility] [address] [place] [address] PCP - General Family Medicine 06/19/22 Mariela Denton MD [address] [place] [address] Referring Physician Gastroenterology 06/19/22 Lexis Barroso OD [address] [place] [address] Wiener Packer 09/19/22 documented as of this encounter
--- OUTSIDE RECORDS SUMMARY | 2024-07-15 17:43 | XMS_ITS | Encounter Summary ---
Author Organization [facility] Medical Group Address [address] [facility] [address] [place] [address] Care Team Providers Care Beauty Advisor Name Role Phone Servando Torre MD Primary Care Provider +1- [phone] Mariela Denton MD Unavailable +1 -[phone] Lexis Barroso OD Unavailable +1- [phone] Encounter Details Date Type Department Care Team (Late st Contact Info) Description 02/14/2023 Telephone [facility] Primary Care at [place] [id number] [place] [address] Servando Torre MD [address] [place] [address] [address] [place] [address] Social History Tobacco Use Types [...] on file Legal Sex Female 9:30 AM TIE BUCKER Gender Identity Female 04/05/2022 6:17 PM CDT [...] MA - 02/14/2023 5:55 PM CDT P: [phone] option 2,1,2. Pt's daughter notified. * Telephone Encounter - David Everett - 02/14/2023 3:12 PM CDT Pt daughter called and is needing phone number for neurology documented in this encounter Plan of Treatment Not on file documented as of this encounter Visit Diagnoses Not on filedocumented in this encounter Care Teams Beauty Advisor Relationship Specialty Start Date End Date Servando Torre MD [facility] [address] [address] PCP - General Family Medicine 06/19/22 Mariela Denton MD [address] [place] [address] Referring Physician Gastroenterology 06/19/22 Lexis Barroso OD [address] [place] [address] Database Specialist 09/19/22 documented as of this encounter
--- OUTSIDE RECORDS SUMMARY | 2024-07-15 17:43 | XMS_ITS | Encounter Summary ---
Author Organization [facility] Medical Group Address [address] [facility] [address] [place] [address] Care Team Providers Care Valve And Regulator Repairer Name Role Phone Servando Torre MD Primary Care Provider +1- [phone] Mariela Denton MD Unavailable +1 -[phone] Lexis Barroso OD Unavailable +1- [phone] Reason for Visit * Reason Onset Date Comments CHRISTELLE Questions 02/04/2023 Encounter Details Date Type Department Care Team (Late st Contact Info) Description 02/04/2023 Telephone [facility] Medical [facility] Primary Care at [address] [address] Servando Torre MD [address] [place] [address] [address] [place] [address] CHRISTELLE Questions (/) Social History [...] file Legal Sex Female 9:30 AM MANAGER INTEGRATED Gender Identity Female 04/05/2022 6:17 PM CDT Sexual Orientation Straight 04/05/2022 6: 17 PM CDT documented as of this encounter Miscellaneous Notes * Telephone Encounter - Pamela Silveira - 02/04/2023 11:19 AM CDT CHRISTELLE Questions (Message from [facility]-Stock [facility]): Has patient been discharged at time of call? Yes Date Admitted: 01/31 Date Discharged: 02/02 Facility Admitted To: [facility] Reason for Stay? Possible seizure due to [...] to the appointment? yes Caller???s Callback #: [phone] Additional Comments: Caller states that patient became unresponsive and her lips were turning blue.She administered CPR and broke 8 of her ribs. Does message need to be routed? No documented in this encounter Plan of Treatment Not on file documented as of this encounter Visit Diagnoses Not on filedocumented in this encounter Care Teams Valve And Regulator Repairer Relationship Specialty Start Date End Date Servando Torre MD [address] [address] PCP - General Family Medicine 06/19/22 Mariela Denton MD [address] [place] [address] Referring Physician Gastroenterology 06/19/22 Lexis Barroso OD [address] [place] [address] Hydrocrane Operator 09/19/22 documented as of this encounter
--- OUTSIDE RECORDS SUMMARY | 2024-07-15 17:43 | XMS_ITS | Encounter Summary ---
Author Organization [facility] Medical Group Address [address] [facility] [address] [place] [address] Care Team Providers Care Core Assembly Supervisor Name Role Phone Servando Torre MD Primary Care Provider +1- [phone] Mariela Denton MD Unavailable +1 -[phone] Lexis Barroso OD Unavailable +1- [phone] Reason for Visit * Reason Onset Date Comments Breathing Problem 02/04/2023 Encounter Details Date Type Department Care Team (Late st Contact Info) Description 02/04/[address] [facility] Medical [facility] Primary Care at [address] [phone] Teresa Navarro, RN Social History Tobacco Use [...] file Legal Sex Female 9:30 AM HAND ROLLER ENGRAVER Gender Identity Female 04/05/2022 6:17 PM CDT Sexual Orientation Straight 04/05/2022 6: 17 PM CDT documented as of this encounter Miscellaneous Notes * Telephone Encounter - Lexis Jhaveri MA - 02/05/2023 4:47 PM CDT See mychart message 02/05/2023 * Telephone Encounter - Evelyne Byers RN - 02/04/2023 4:55 PM CDT Patient's daughter calling back from [place] and continues having difficulty with chargingthe portable [...] inthe low 90s. Patient is currently at [facility] charging O2 for ride to [place]. Provided patient's daughter with the phone number for Emmanuelle in [place] for possible O2 availability. Phone is [phone]. * Telephone Encounter - Teresa Navarro RN - 02/04/2023 3:57 PM CDT Lisa Allen daughter, Aby, calling due recent low oxygen event while on vacation in [place]. Caller states they are in [place] for [...] O2 To Go - equipment is in [place]. They went with 3rd option which was [...] further resources regarding their portable oxygen issue. [phone] Reason for Disposition Nursing judgment Protocols used: Information Only Call - No [id number] * Telephone Encounter - Teresa Navarro RN - 02/04/2023 3:52 PM CDT Regarding: Patient having difficulty breathing ----- Message from Rhonda Olivas sent at 02/04/2023 3:45 PM CDT ----- Symptom Based Call Caller's Callback #: [phone] Chief Complaint(s): Patient having difficulty breathing Duration: [...] cpr. Patient's and her daughter are in [place] and are trying to make the trip back home, but patient's oxygen levels continue to dip. Patient sent home from hospital with portable oxygen, but still having difficulty maintaining levels. Does message need to be routed? Yes-Action Needed documented in this encounter Plan of Treatment Not on file documented as of this encounter Visit Diagnoses Not on filedocumented in this encounter Care Teams Core Assembly Supervisor Relationship Specialty Start Date End Date Servando Torre MD [facility] [address] PCP - General Family Medicine 06/19/22 Mariela Denton MD [address] [place] [address] Referring Physician Gastroenterology 06/19/22 Lexis Barroso OD [address] [place] [address] Legal Executive Assistant 09/19/22 documented as of this encounter
--- OUTSIDE RECORDS SUMMARY | 2024-07-15 17:43 | XMS_ITS | Encounter Summary ---
Author Organization [facility] Medical Group Address [address] [facility] [address] [place] [address] Care Team Providers Care Nanoscience Technician Name Role Phone Servando Torre MD Primary Care Provider +1- [phone] Mariela Denton MD Unavailable +1 -[phone] Lexis Barroso OD Unavailable +1- [phone] Reason for Visit * Reason Onset Date Comments Medical Question/Miscellaneous 02/04/2023 Encounter Details Date Type Department Care Team (Late st Contact Info) Description 02/04/2023 Telephone [facility] Medical [facility] Primary Care at [address] [address] Servando Torre MD [address] [place] [address] [address] [place] [address] Medical Question/Miscellaneous Social History Tobacco [...] on file Legal Sex Female 9:30 AM FIRST LINE SUPERVISOR Gender Identity Female 04/05/2022 6:17 PM [...] Warm transferredback line. Caller???s Call back #: [phone] Does message need to be routed? No * Telephone Encounter - Rhonda Olivas - 02/04/2023 4:39 PM CDT Call Back Caller???s Concern: Patient's daughter called back after speaking with nurse triage, had additionalquestions regarding getting help from insurance case management team. Warm Transferred to Triage back door at the advice of Lead. Caller???s Call back #: [phone] Does message need to be routed? No documented in this encounter Plan of Treatment Not on file documented as of this encounter Visit Diagnoses Not on filedocumented in this encounter Care Teams Nanoscience Technician Relationship Specialty Start Date End Date Servando Torre MD [address] [address] PCP - General Family Medicine 06/19/22 Mariela Denton MD [address] [place] [address] Referring Physician Gastroenterology 06/19/22 Lexis Barroso OD [address] [place] [address] Finishing Manager 09/19/22 documented as of this encounter
--- OUTSIDE RECORDS SUMMARY | 2024-07-15 17:43 | XMS_ITS | Encounter Summary ---
Author Organization [facility] Address [address] [place] [address] Care Team Providers Care Color Drum Worker Name Role Phone Servando Torre MD Primary Care Provider [phone]- [phone] Mariela Denton MD Unavailable +1 -[phone] Lexis Barroso OD Unavailable +- [phone] Reason for Visit * Auth/Cert (Routine) Specialty Diagnoses / Procedures Referred By Contac t Referred To Contact Diagnoses Chronic ulcerative colitis with complication, unspecified location (HCC) Chronic ulcerative colitis with complication, unspecified location (HCC) [K51.919] Procedures IA COLONOSCOPY FLX DX W/COLLJ SPEC WHEN PFRMD IA COLONOSCOPY W/BIOPSY SINGLE/MULTIPLE COLONOSCOPY Referral ID Status Reason Start Date Expiration Date Visits Re quested Visits Authorized [id number] 1 1 Encounter Details Date Type Department Care Team (Late st Contact Info) Description 11/29/2022 9:07 AM CDT - 11/29/2022 11:27 AM CDT Hospital Encounter [facility] Endoscopy [address] [address] Mariela Denton MD [address] [place] [address] Discharge Disposition: Discharge to home or self [...] file Legal Sex Female 9:30 AM ASSEMBLER EQUIPMENT Gender Identity Female 04/05/2022 6:17 PM [...] Diet: Type of diet ordered {GI diet instructions:42217857}. You may eat and drink at . [...] your physician. Pain/Bleeding: You have had {POST BIOPSY/DILITATION:01714392} performed during the procedure. You may expect a little bleeding from the site. Within the next 48 hours, if the bleeding becomes excessive or is accompanied by abdominal or chest pain, please call your physician immediately. If you are on aspirin or NSAIDS (non-steroidal anti-inflammatory drugs) then you can resume in {Endo ASA/NSAIDS:20493681}. If no follow-up appointment is required, you [...] Female Attending MD: Mariela Denton M.D. Room: [facility] ENDOSCOPY ROOM 01 Note Status: Finalized [...] scope was passed under direct vision. The [id number] was introduced through the anus and advanced [...] hours - Please call the Nurse Coordinator: [phone] After hours, evening, nights, weekends and holidays - Please call the hospital anodizing line operator at and ask for the GI fellow director of infection control. Electronically signed by Mariela Denton M.D. Mariela Denton M.D. 11/29/2022 10:54:08 AM Number of Addenda: 0 Note Initiated On: 11/29/2022 10:18 AM documented in this encounter Miscellaneous Notes * Perioperative Nursing Note - Gay Jasso RN - 11/29/2022 10:50 AM CDT discussed findings. Discharge instructions given to patient, (and by phone - directed to pick pulling machine tender location).Understanding expressed, questions answered.(No signatures due to CoVid19 protocol) Tolerating po fluids. * Pre-Procedure Instructions - Riri Bro RN - 11/28/2022 12:38 PM CDT Please follow all instruction you were given regarding your bowel prep. When you arrive come to [facility] Hospital entrance. As you enter [...] non-medical transport)by yourself will be allowed Your public transit trolley driver must be at least 18 y/o If your public transit trolley driver chooses not to come in to the building or will be picking you up after your procedure-we will call your public transit trolley driver to confirm your ride home prior to the procedure start time Masking at [facility] is now optional. You may bring a mask and masks are available at hospital entrance. We respect personal choice of anyone who chooses to mask. Be assured employees are ready to mask upon request when providing care. My number is [phone] documented in this encounter Plan of Treatment [...] Female Attending MD: Mariela Denton M.D. Room: [facility] END[facility] 01 Note Status: Finalized [...] The scope was passed under direct vision.The [id number] was introduced through the anusand advanced to [...] business hours - Please call theNurse Coordinator: [phone] After hours, evening, nights, weekends and holidays- Please call the hospital anodizing line operator at and ask for the GI fellow director of infection control. Electronically signed by Mariela Denton M.D. Mariela Denton M.D. 11/29/2022 10:54:08 AM Number of Addenda: 0 Note Initiated On: 11/29/2022 10:18 AM us Mariela Denton MD ENDOSCOPY PROCEDURE S Final Result * POCT glucose (11/29/2022 9:46 AM CDT) [facility] Glucose, POC 166 70 - 199 mg/dL AILEEN ROSAS Comment: Interpretive Data Glucose is assumed to be non-fasting. Fasting Glucose reference ranges are: 0 - 150 years: ??70 mg/dL - 99 mg/dL Current interpretive data was last revised on 2014. POC Performer [id number] AILEEN ROSAS POC Device Number [id number] AILEEN ROSAS Blood 11/29/2022 9:46 AM CDT 11/29/2022 9:46 AM CDT Mariela Denton MD LAB POCT ORDERABLES - DEVICE Final Result AILEEN CRAIGWCH [address] [facility]. Department [place] [address] documented in this encounter Visit [...] 11/29/2022 documented in this encounter Care Teams Color Drum Worker Relationship Specialty Start Date End Date Servando Torre MD [facility] [address] [address] PCP - General Family Medicine 06/19/22 Mariela Denton MD [address] [place] [address] Referring Physician Gastroenterology 06/19/22 Lexis Barroso OD [address] [place] [address] Clip On Sunglasses Inspector 09/19/22 documented as of this encounter
--- OUTSIDE RECORDS SUMMARY | 2024-07-15 17:43 | XMS_ITS | Encounter Summary ---
Author Organization [facility] Address [address] [facility] [address] [place] [address] Care Team Providers Care Pig Caster Name Role Phone Servando Torre MD Primary Care Provider [phone] Mariela Denton MD Unavailable [phone] [phone] Lexis Barroso OD Unavailable +1- [phone] Reason for Referral * Consultation (Routine) - Closed Specialty Diagnoses / Procedures Referred By Angel braswell Referred To Contact Neurology Diagnoses Seizure (HCC) Marixa San NP [address] [facility] [address] [place] [address] Phone: tel: fax: [facility] Epilepsy [address] [facility] 6th [place] [address] [place] [address] Phone: tel: fax: Referral ID Status Reason Start Date Expiration Date V isits Requested Visits Authorized [id number] Closed Specialty Services Required 02/07/2023 03/08/2024 1 1 Question Answer Please select the performing region: [facility] [152] Please select the performing department: [facility] [[id number]] # of visits: 1 * Diagnostic Imaging (Routine) - Closed Specialty Diagnoses / Procedures Referred By Angel braswell Referred To Contact Diagnoses Liver nodule Procedures US Liver Marixa San NP [address] [place] [address] [address] [place] [address] Phone: tel: fax: External Order Referral ID Status Reason Start Date Expiration Date Visits Re quested Visits Authorized [id number] Closed 02/07/2023 03/08/2024 1 1 Reason for Visit * Reason Comments CHRISTELLE Discharged on 02/02 [facility] in [place], [place] for possible seizure due to lack of oxygen. 8 broken ribs. Due to CPR. oxygen Walking needs increa sed on oxygen. First thing in the morning when in pain oxygen is increased as well. Encounter Details Date Type Department Care Team (Latest Contact Info) Description 02/07/2023 9:00 AM CDT Office Visit [facility] Primary Care at [address] [phone] Marixa San NP [address] [place] [address] [address] [place] [address] Seizure (HCC) (Primary Dx); Acute pulmonary edema [...] on file Legal Sex Female 9:30 AM SHELL MAKER LOCKSTITCH Gender Identity Female 04/05/2022 6:17 PM [...] have noted any changes. Patient was in [place] for a family reunion. [...] night when O2 drops. Patient returned from [place] last night. She is supposed to mail back current concentrator tomorrow to [place]. Patient's mental status still not 100% back [...] NP LAB BLOOD ORDERABLES Final Resul t [facility] [address] Department [place] [address] * (ABNORMAL) Comprehensive metabolic panel [...] LAB BLOOD ORDERABLES Final Resul t AILEEN [address] Department [place] [address] * (ABNORMAL) CBC with auto differential (02/07/2023 10:42 AM CDT) Pathologist [facility] WBC 8.2 3.8 - 9.9 K/cumm CERNER [...] CH MCHC 30.3(L) 32.3 - 35.7 g/dL [facility] RDW CV 14.7 11.1 - 14.9 % [facility] RDW SD 51.9(H) 35.7 - 48.1 fL [facility] NRBC abs 0.02(H) 0.00 - 0.01 K/cumm [facility] Blood 02/07/2023 10:4 2 AM CDT 02/07/2023 4:21 PM CDT us Marixa San FIRST AID TEACHER LAB BLOOD ORDERABLES Final Resul t [facility] [address] Department [place] [address] documented in this encounter Visit [...] 4 added in this encounter Care Teams Pig Caster Relationship Specialty Start Date End Date Servando Torre MD [facility] [address] [address] PCP - General Family Medicine 06/19/22 Mariela Denton MD [facility] [address] [place] [address] Referring Physician Gastroenterology 06/19/22 Lexis Barroso OD [address] [place] [address] Medical Billing Coder 09/19/22 documented as of this encounter
--- OUTSIDE RECORDS SUMMARY | 2024-07-15 17:43 | XMS_ITS | Encounter Summary ---
Author Organization [facility] Address [address] [place] [address] Care Team Providers Care Fats And Oils Loader Name Role Phone Servando Torre MD Primary Care Provider [phone] Mariela Denton MD Unavailable [phone] [phone] Lexis Barroso OD Unavailable [phone]- [phone] Reason for Visit * MRI/CAT/PET Scan (Routine) - Closed Specialty Diagnoses / Procedures Referred By Contac t Referred To Contact Procedures Neuro CT Outside Reference Karl Turner MD PhD [address] [facility] [address] [place] [address] Phone: tel: fax: Referral ID Status Reason Start Date Expiration Date Visits Re quested Visits Authorized [id number] Closed 02/17/2023 03/18/2024 1 1 Encounter Details Date Type Department Care Team (Latest Contact Info) Description 02/17/2023 5:44 PM CDT - 02/17/2023 11:59 PM CDT Hospital Encounter [facility] [address] [place] [address] Discharge Disposition: Discharge to home or [...] on file Legal Sex Female 9:30 AM PESTICIDE CONTROL INSPECTOR Gender Identity Female 04/05/2022 6:17 PM [...] only and have not been reviewed by [facility] Radiology. ??There will be no report generated by a [facility] Radiologist. Narrative [facility]_P[facility] - 02/17/2023 5:44 PM CDT EXAMINATION: ??Images For Reference Purposes Only us Karl Turner MD PhD IMG CT PROCEDURES Final Re sult [facility] documented in this encounter Visit Diagnoses Not on filedocumented in this encounter Care Teams Fats And Oils Loader Relationship Specialty Start Date End Date Servando Torre MD 2 [facility] [address] [place] [address] PCP - General Family Medicine 06/19/22 Mariela Denton MD [address] [place] [address] Referring Physician Gastroenterology 06/19/22 Lexis Barroso OD [address] [address] Wall Mirror Department Supervisor 09/19/22 documented as of this encounter
--- OUTSIDE RECORDS SUMMARY | 2024-07-15 17:43 | XMS_ITS | Encounter Summary ---
Author Organization [facility] Address [address] [facility] [address] [place] [address] Care Team Providers Care Spread Cutter Name Role Phone Servando Torre MD Primary Care Provider Mariela Denton MD Unavailable [phone] [phone] Reason for Visit * Reason Comments Establish Care TOWEL CABINET REPAIRER-pt has ulcerative colitis and has a specialist appt. Also having shoulder pain Encounter Details Date Type Department Care Team (Late st Contact Info) Description 06/19/2022 3:15 PM BOOKING CLERK Office Visit [facility] Primary Care at [address] [phone] Servando Torre MD [address] [place] [address] [address] [place] [address] Initial Medicare annual wellness visit [...] on file Legal Sex Female 9:30 AM BOOKING CLERK Gender Identity Female 04/05/2022 6:17 PM CDT Sexual Orientation Straight 04/05/2022 6: 17 PM CDT documented as of this encounter Last Filed Vital Signs Vital Sign Reading Time Taken Comments Blood Pressure 120/62 06/19/2022 3:29 PM BOOKING CLERK Pulse 67 06/19/2022 3:29 PM BOOKING CLERK Temperature 36.7 ??C (98 ??F) 06/19/2022 3:29 PM BOOKING CLERK Respiratory Rate 20 06/19/2022 3:29 PM BOOKING CLERK Oxygen Saturation 97% 06/19/2022 3:29 PM BOOKING CLERK Inhaled Oxygen Concentration - - Weight 70.8 kg (156 lb) 06/19/2022 3:29 PM BOOKING CLERK Height 157.5 cm (5' 2 ) 06/19/2022 3:29 PM BOOKING CLERK Body Mass Index 28.53 06/19/2022 3:29 PM BOOKING CLERK documented in this encounter Patient Instructions * Patient Instructions* Servando Torre MD - 06/19/2022 3:15 PM BOOKING CLERK Awaiting lipid panel Continuing current regimen, will [...] you have any questions or concerns at [phone]. You may receive a phone call, text, MYCHART message, or e-mail asking about your care today. We would love to hear your feedback on how EXCELLENT your care wastoday! Wishing you better health, always. Dr. Torre ING CLERK ING CLERK ING CLERK documented in this encounter Progress Notes * Servando Torre MD - 06/19/2022 3:15 PM CST MEDICARE ANNUAL WELLNESS VISIT Lisa Komal Allen Medicare Health Risk Assessment Basic Information Do you have an advance directive, such as a living will or durable power of employment law attorney?: Yes Do you have to strain [...] but will be coming off of the [facility],. Problem List, Past Medical and Surgical History: [...] as Referring Physician (Gastroenterology) Primary Pharmacy/DME suppliers: [id number] - [place], [place] - [address] AT [facility] [address] [facility] [address] Detection of Cognitive Impairment: The patient does [...] Improve Diet Advanced Directive Durable Power of Senior Data Quality Analyst: Yes Living Will: Yes Assessment and Plan: [...] update and summary of today's office visit. ING CLERK documented in this encounter Miscellaneous Notes * Assessment & Plan Note - Servando Torre MD - 06/23/2022 3:05 PM BOOKING CLERK Associated Problem(s): Encounter for Medicare annual wellness [...] Xray ordered today; possibly rotator cuff dysfunction ING CLERK * Addendum Note - Harleen Gamboa - 06/19/2022 3:15 PM CSTAddended by: HARLEEN GAMBOA on: 07/26/2022 08:52 AM Modules accepted: Orders ING CLERK documented in this encounter Plan of Treatment Not on file documented as of this encounter Results * Lipid panel (07/26/2022 8:52 AM BOOKING CLERK) Pathologist [facility] Cholesterol 152 30 - 199 mg/dL AILEEN [...] 3 AILEEN MATTHEW Blood 07/26/2022 8:52 AM BOOKING CLERK 07/26/2022 2:37 PM BOOKING CLERK Servando Torre MD LAB BLOOD ORDERABLES Final Result AILEEN MATTHEW [address] Department [place] [address] documented in this encounter Visit [...] COVID: Suspected 07/03/2022 07/03/2022 07/03/2022 7:57 PM BOOKING CLERK COVID19 07/03/2022 07/03/2022 07/13/2022 3:05 AM BOOKING CLERK COVID: Recovered Comment:Added based on recent COVID infection. 07/13/2022 07/26/2022 10/11/2022 3:05 AM C DT documented as of this encounter Care Teams Spread Cutter Relationship Specialty Start Date End Date Servando Torre MD 2 [facility] [address] [place] [address] PCP - General Family Medicine 06/19/22 Mariela Denton MD [address] [place] [address] Referring Physician Gastroenterology 06/19/22 documented as of this encounter
--- OUTSIDE RECORDS SUMMARY | 2024-07-15 17:43 | XMS_ITS | Encounter Summary ---
Author Organization [facility] Address [address] [place] [address] Phone Care Team Providers Care Music Publicist Name Role Phone Servando Torre MD Primary Care Provider [phone]- [phone] Mariela Denton MD Unavailable [phone] [phone] Lexis Barroso OD Unavailable [phone]- [phone] Encounter Details Date Type Department Care Team (Late st Contact Info) Description 10/14/2022 Orders Only [facility] Gastroenterology [address] [facility] 12th [place] [address] [place] [phone] Lexis Renteria RN Skin tag (Primary Dx) [...] on file Legal Sex Female 9:30 AM SPAR MACHINE OPERATOR Gender Identity Female 04/05/2022 6:17 PM CDT Sexual Orientation Straight 04/05/2022 6: 17 PM CDT documented as of this encounter Progress Notes * Lexis Renteria RN - 10/14/2022 8:33 AM CDT Referral along with office note, insurance info and face sheet has been faxed to [facility] at [phone]. -------Fax Transmission Report------- To: Recipient at [phone] Subject: Joseph Allen referral (secure) Result: The transmission was successful. Explanation: All Pages Ok Pages Sent: 16 Connect Time: 14 minutes, 10 seconds Transmit Time: 10/14/2022 08:38 Transfer Rate: 9600 Status Code: 0000 Retry Count: 0 Job Id: [id number] Unique Id: [id number] Fax Line: 22 Fax Server Cashier: [id number] documented in this encounter Plan of Treatment Not on file documented as of this encounter Visit Diagnoses Diagnosis Skin tag- Primary Unspecified hypertrophic and atrophic condition of skin documented in this encounter Orders Procedures Count Last Ordered Date First Orde red Date ONCBCN OUTPATIENT FACILITY ORDERS 1 023 documented in this encounter Care Teams Music Publicist Relationship Specialty Start Date End Date Servando Torre MD [facility] [address] [address] PCP - General Family Medicine 06/19/22 Mariela Denton MD [address] [place] [address] Referring Physician Gastroenterology 06/19/22 Lexis Barroso OD [address], [place] [address] Tool Rental Technician 09/19/22 documented as of this encounter
--- OUTSIDE RECORDS SUMMARY | 2024-07-15 17:43 | XMS_ITS | Encounter Summary ---
Author Organization [facility] Address [address] [facility] [address] [place] [address] Care Team Providers Care Key Holder Name Role Phone Servando Torre MD Primary Care Provider Mariela Denton MD Unavailable [phone] Encounter Details Date Type Department Care Team (Late st Contact Info) Description 07/26/2022 9:15 AM IRISH MOSS BLEACHER Lab [facility] Outpatient Lab at [address] [address] Cough, unspecified type Social History [...] on file Legal Sex Female 9:30 AM IRISH MOSS BLEACHER Gender Identity Female 04/05/2022 6:17 PM CDT [...] documented as of this encounter Care Teams Key Holder Relationship Specialty Start Date End Date Servando Torre MD [address] [facility] [address] [place] [address] PCP - General Family Medicine 06/19/22 Mariela Denton MD [address] [place] [address] Referring Physician Gastroenterology 06/19/22 documented as of this encounter
--- OUTSIDE RECORDS SUMMARY | 2024-07-15 17:43 | XMS_ITS | Encounter Summary ---
Author Organization [facility] Address [address] [facility] [address] [place] [address] Care Team Providers Care Food Specialist Name Role Phone Servando Torre MD Primary Care Provider [phone] Mariela Denton MD Unavailable [phone] [phone] Lexis Barroso OD Unavailable +1- [phone] Reason for Visit * Reason Onset Date Comments Medical Question/Miscellaneous 02/07/2023 Encounter Details Date Type Department Care Team (Late st Contact Info) Description 02/07/2023 Telephone [facility] Primary Care at [address] [address] Servando Torre MD [address] [place] [address] [address] [place] [address] Medical Question/Miscellaneous Social History Tobacco [...] on file Legal Sex Female 9:30 AM LITHOGRAPH PRESS FEEDER Gender Identity Female 04/05/2022 6:17 PM [...] and new notes have been faxed to [facility] * Telephone Encounter - Maria C Frost MA - 02/07/2023 2:33 PM CDT Medical Question/Miscellaneous Caller???s Concern: Bianka, from [facility], called to speak with Dr. Torre's care team regarding the oxygen order. She is needing to speak with a nurse before the end of the day. Caller???s Call back #: [phone] Does message need to be routed? Yes-Action Needed documented in this encounter Plan of Treatment Not on file documented as of this encounter Visit Diagnoses Not on filedocumented in this encounter Care Teams Food Specialist Relationship Specialty Start Date End Date Servando Torre MD [address] [facility] [address] [place] [address] PCP - General Family Medicine 06/19/22 Mariela Denton MD [address] [place] [address] Referring Physician Gastroenterology 06/19/22 Lexis Barroso OD [address] [place] [address] Security Investigator 09/19/22 documented as of this encounter
--- OUTSIDE RECORDS SUMMARY | 2024-07-15 17:43 | XMS_ITS | Encounter Summary ---
Author Organization [facility] Address [address] [place] [address] Care Team Providers Care Photographer Finish Name Role Phone Servando Torre MD Primary Care Provider Mariela Denton MD Unavailable [phone] Encounter Details Date Type Department Care Team (Latest Contact Info) Description 07/26/2022 8:52 AM BRAIDING MACHINE OPERATOR - 07/26/2022 11:59 PM BRAIDING MACHINE OPERATOR Hospital Encounter [facility] [address] [place], [place] [id number] Mixed hyperlipidemia Discharge Disposition: Discharge to home [...] on file Legal Sex Female 9:30 AM BRAIDING MACHINE OPERATOR Gender Identity Female 04/05/2022 6:17 [...] Comments LIPID PANEL Routine 07/26/2022 8:52 AM BRAIDING MACHINE OPERATOR Mixed hyperlipidemia documented in this encounter Results * Lipid panel (07/26/2022 8:52 AM BRAIDING MACHINE OPERATOR) Cholesterol 152 30 - 199 mg/dL AILEEN [...] ratio 3 AILEEN Blood 07/26/2022 8:52 AM BRAIDING MACHINE OPERATOR 07/26/2022 2:37 PM BRAIDING MACHINE OPERATOR Servando Torre MD LAB BLOOD ORDERABLES Final Result Performing Organization Address City/State/[facility] Phone Number AILEEN [address] Department [place] [address] documented in this encounter Visit Diagnoses Diagnosis Mixed hyperlipidemia documented in this encounter Additional Health Concerns Infection Onset Date Last Indicated Resolved Time COVID: Recovered Comment:Added based on recent COVID infection. 07/13/2022 07/26/2022 10/11/2022 3:05 AM C DT documented as of this encounter Care Teams Photographer Finish Relationship Specialty Start Date End Date Servando Torre MD [address] [place] [address] [address] PCP - General Family Medicine 06/19/22 Mariela Denton MD [address] [place] [address] Referring Physician Gastroenterology 06/19/22 documented as of this encounter
--- OUTSIDE RECORDS SUMMARY | 2024-07-15 17:43 | XMS_ITS | Encounter Summary ---
Author Organization [facility] Healthcare Address [address] [place] [address] Care Team Providers Care Automotive Airconditioning Mechanic Name Role Phone Servando Torre MD Primary Care Provider Mariela Denton MD Unavailable +1 -[phone] Lexis Barroso OD Unavailable +1- [phone] Encounter Details Date Type Department Care Team (Latest Contact Info) Description 02/17/2023 5:44 PM CDT - 02/17/2023 11:59 PM CDT Hospital Encounter [facility] [address] [place] [address] Discharge Disposition: Discharge to home or self [...] file Legal Sex Female 9:30 AM CANDY ATTENDANT Gender Identity Female 04/05/2022 6:17 PM [...] only and have not been reviewed by [facility] Radiology. ??There will be no report generated by a [facility] Radiologist. Narrative RAD_PACS_BJ - 02/17/2023 5:44 PM CDT EXAMINATION: ??Images For Reference Purposes Only us Karl Turner MD PhD IMG CT PROCEDURES Final Re sult RAD_PACS_[facility]JH documented in this encounter Visit Diagnoses Not on filedocumented in this encounter Care Teams Automotive Airconditioning Mechanic Relationship Specialty Start Date End Date Servando Torre MD [facility] [address] PCP - General Family Medicine 06/19/22 Mariela Denton MD [facility] [address] [place] [address] Referring Physician Gastroenterology 06/19/22 Lexis Barroso OD [address] [place] [address] Judicial Assistant 09/19/22 documented as of this encounter
--- OUTSIDE RECORDS SUMMARY | 2024-07-15 17:43 | XMS_ITS | Encounter Summary ---
Author Organization [facility] Address [address] [facility] [address] [place] [address] Care Team Providers Care Director Print Name Role Phone Servando Torre MD Primary Care Provider +1- [phone] Mariela Denton MD Unavailable +1 -[phone] Lexis Barroso OD Unavailable +1- [phone] Encounter Details Date Type Department Care Team (Late st Contact Info) Description 02/12/2023 Orders Only [facility] Medical [facility] Primary Care at [place] [address] [place] [address] Marixa San NP [address] [facility] [address] [place] [address] Memory changes (Primary Dx) Social [...] file Legal Sex Female 9:30 AM LABORATORY EQUIPMENT INSTALLER Gender Identity Female 04/05/2022 6:17 PM [...] Primary documented in this encounter Care Teams Director Print Relationship Specialty Start Date End Date Servando Torre MD [address] [place] [address] PCP - General Family Medicine 06/19/22 Mariela Denton MD [address] [place] [address] Referring Physician Gastroenterology 06/19/22 Lexis Barroso OD [address] [place] [address] Addressing Machine Operator 09/19/22 documented as of this encounter
--- OUTSIDE RECORDS SUMMARY | 2024-07-15 17:43 | XMS_ITS | Encounter Summary ---
Author Organization [facility] Address [address] [place] [address] Phone Care Team Providers Care Therapy Administrative Assistant Name Role Phone Servando Torre MD Primary Care Provider +1- [phone] Mariela Denton MD Unavailable [phone] -[phone] Lexis Barroso OD Unavailable +1- [phone] Encounter Details Date Type Department Care Team [...] on file Legal Sex Female 9:30 AM NURSING MANAGER Gender Identity Female 04/05/2022 6:17 PM [...] on filedocumented in this encounter Care Teams Therapy Administrative Assistant Relationship Specialty Start Date End Date Servando Torre MD 2 [facility] [address] [place] [address] PCP - General Family Medicine 06/19/22 Mariela Denton MD [address] [place] [address] Referring Physician Gastroenterology 06/19/22 Lexis Barroso OD [address] [place] [address] Bale Tie Machine Operator 09/19/22 documented as of this encounter
--- OUTSIDE RECORDS SUMMARY | 2024-07-15 17:43 | XMS_ITS | Encounter Summary ---
Author Organization [facility] Address [address] [facility] [address] [place] [address] Care Team Providers Care Vending Machine Repairer Name Role Phone Servando Torre MD Primary Care Provider Mariela Denton MD Unavailable [phone] [phone] Reason for Referral * Diagnostic Imaging (Routine) - Closed Specialty Diagnoses / Procedures Referred By Contac t Referred To Contact Diagnoses Chronic left shoulder pain Procedures XR Shoulder Left 2+ Vw Servando Torre MD [address] [facility] [address] [place] [address] Phone: tel: fax: [facility] Referral ID Status Reason Start Date Expiration Date Visits Re quested Visits Authorized [id number] Closed 06/19/2022 07/19/2023 1 1 OOD PATCHER Encounter Details Date Type Department Care Team (Late st Contact Info) Description 06/19/2022 Orders Only [facility] Medical [facility] Primary Care at [address] [address] Servando Torre MD [address] [facility] [address] [place] [address] Chronic left shoulder pain (Primary [...] on file Legal Sex Female 9:30 AM PLYWOOD PATCHER Gender Identity Female 04/05/2022 6:17 PM CDT Sexual Orientation Straight 04/05/2022 6: 17 PM CDT documented as of this encounter Plan of Treatment Not on file documented as of this encounter Results * XR Shoulder Left 2+ Vw (06/19/2022 4:16 PM PLYWOOD PATCHER) Anatomical Region Laterality Modality Upper Extremities, Shoulder Left Digi hortensia Radiography 06/20/2022 6:31 PM PLYWOOD PATCHER Narrative 06/20/2022 6:32 PM PLYWOOD PATCHER EXAM DESCRIPTION: ?? XR SHOULDER LEFT 2 [...] D: ??06/20/2022 6:32 PM T: Report ID: [id number] Reading Location: ??[id number] Procedure Note Kailey Layton MD - 06/20/2022 [...] Kailey Layton M.D. TW T: Report ID: [id number] Reading Location: [id number] us Servando Torre MD IMG XR PROCEDURES Final Res ult documented in this encounter Visit Diagnoses Diagnosis Chronic left shoulder pain- Primary Pain in joint, shoulder region Chronic left shoulder pain Pain in joint, shoulder region documented in this encounter Care Teams Vending Machine Repairer Relationship Specialty Start Date End Date Servando Torre MD [address] [facility] [address] [place] [address] PCP - General Family Medicine 06/19/22 Mariela Denton MD [address] [place] [address] Referring Physician Gastroenterology 06/19/22 documented as of this encounter
--- OUTSIDE RECORDS SUMMARY | 2024-07-15 17:43 | XMS_ITS | Encounter Summary ---
Author Organization [facility] Address [address] [place] [address] Phone Care Team Providers Care Journeyman Tool And Die Maker Name Role Phone Servando Torre MD Primary Care Provider [phone] [phone] Mariela Denton MD Unavailable [phone] [phone] Lexis Barroso OD Unavailable +1- [phone] Encounter Details Date Type Department Care Team (Late st Contact Info) Description 12/19/2022 Orders Only [facility] [address] [place] [address] Ramon Rowan MD [address] [place] [address] Social History Tobacco Use Types [...] on file Legal Sex Female 9:30 AM MASTER DYER Gender Identity Female 04/05/2022 6:17 PM CDT [...] results best viewed via link to PDF [facility] [address] [place], [place] [address]le., ??[address], [place] [address] ? [email or web address] Note to Patients: ??This report may contain [...] Information: Ramon Rowan M.D. [facility], [address] [place] [address] ??[id number], ? DERMATOPATHOLOGY REPORT RESULTS ?? DIAGNOSIS: SKIN, [...] ICD-9 A; ZSD.232 ? Clerical Data A; 78879 The Characteristics of some immunohistochemical and immunofluorescence stains as well as in-situ hybridization tests were determined by the [facility] in ongoing water quality control engineer and in compliance with regulations drawn from the Clinical Laboratory Improvement Act of 1988 (CLIA '88). These tests may rely on the use of analyte specific reagents that are subject to specific labeling requirements by the US FDA, and may only be performed in a facility that is certified by the [facility] as a high-complexity laboratory under CLIA '88. ??These tests are used for clinical purposes and are not investigational. ??For lab developed tests, the validation has been reviewed; the performance is considered acceptable for patient testing. Ramon Rowan MD LAB PATHOLOGY ORDERAB LES Final Result documented in this encounter Visit Diagnoses Not on filedocumented in this encounter Care Teams Journeyman Tool And Die Maker Relationship Specialty Start Date End Date Servando Torre MD [address] [facility] [address] [place] [address] PCP - General Family Medicine 06/19/22 Mariela Denton MD [address] [place] [address] Referring Physician Gastroenterology 06/19/22 Lexis Barroso OD [address] [place] [address] Bobtail Driver 09/19/22 documented as of this encounter
--- OUTSIDE RECORDS SUMMARY | 2024-07-15 17:43 | XMS_ITS | Encounter Summary ---
Author Organization [facility] Healthcare Address [address] [place] [address] Care Team Providers Care Reversal Print Inspector Name Role Phone Servando Torre MD Primary Care Provider Mariela Denton MD Unavailable [phone] [phone] Lexis Barroso OD Unavailable +1- [phone] Reason for Visit * Reason Comments Blurred Vision Fatigue Encounter Details Date Type Department Care Team (Late st Contact Info) Description 02/12/2023 7:50 PM CDT - 02/12/2023 9:51 PM CDT Emergency [facility] Emergency Department [address] [place] [address] Juve Trejo MD [address] [address] Weakness (Primary Dx); Confusion Discharge Disposition: Discharge [...] on file Legal 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 * Confusion (Romanian) documented in this encounter Medications at Time [...] days. Patient states that she was in [place] about 9600 ft while she was sitting [...] seizure due to high altitude levels in [place]. Pt had CPR and now has broken [...] seizure due to high altitude levels in [place]. ? TECHNIQUE: Axial images acquired through the [...] PM T: ??02/12/2023 9:05 PM Report ID: [id number] Reading Location: ??[id number] Procedure Note Teofilo Sunshine MD - 02/12/2023 EXAM DESCRIPTION: CT HEAD WO CONTRAST REASON FOR STUDY: Mental status change, unknown cause c/o increased fatigue, confusion and blurry vision x 3 days. Per family,on 01/30 pt had what is believed to be a seizure due to high altitude levels in [place]. TECHNIQUE: Axial images acquired through the brain [...] Sunshine M.D., D.O. MW: JEOVANNY Report ID: [id number] Reading Location: [id number] Juve Trejo MD IMG CT PROCEDURES Final Result * Urine culture Urine (02/12/2023 7:10 PM CDT) Report Final Report: Less than 100,000 colonies/mL (clinically insignificant growth based on current clinical standards) AILEEN RODRIGUEZ ([place]) Comment:Testing performed by : [facility], [address] [facility] [place]., [address] Organism (CLINICALLY INSIGNIFICANT GROWTH AILEEN RODRIGUEZ ([place]) Urine 02/12/2023 7:10 PM CDT 02/12/2023 10:23 PM CDT Narrative AILEEN RODRIGUEZ ([place]) - 02/14/2023 7:37 AM CDT Urine culture reflexed based upon urinalysis results. Testing performed by [facility] Microbiology Laboratory ([phone]) us Juve Trejo MD LAB MICROBIOLOGY - GENERAL ORD ERABLES Final Result Performing Organization Address [facility]/ZIP Co de Phone Number AILEEN RODRIGUEZ ([place]) 1 [facility] [place] [address] * (ABNORMAL) Urinalysis, microscopic only (02/12/2023 7:10 PM CDT) WBC, ur 11-20(A) 0 - 5 /HPF [facility] ([place]) RBC, ur 0-2 0 - 2 /HPF [...] ORDERABLES Final Res ult Performing Organization Address City/[facility]/ZIP Co de Phone Number AILEEN RODRIGUEZ ([place]) 1 [facility] [place] [address] * (ABNORMAL) Urinalysis reflex to microscopic and culture Urine (02/12/2023 7:10 PM CDT) Color, ur Yellow Yellow [facility] ([place]) Clarity, ur Clear Clear [facility] ([place]) Specific gravity, ur 1.012 1.003 - 1.030 [facility] ([place]) pH, urine 5.0 [facility] ([place]) Protein, ur ql Negative Negative [facility] ([place]) Glucose, ur ql Negative Negative [facility] ([place]) Ketones, ur Negative Negative [facility] A ([place]) Bilirubin, ur Negative Negative [facility] ([place]) Blood, ur Negative Negative [facility] ([place]) Urobilinogen, ur <2.0 <2.0 mg/dL [facility] ([place]) Nitrite, ur Negative Negative [facility] A ([place]) Leukocyte esterase, ur 3+(A) Negative [facility] ([place]) UA reflex comment Reflex to microscopic UA will be performed. AILEEN [facility] ([place]) Urine 02/12/2023 7:10 PM CDT 02/12/2023 7:12 PM CDT Narrative [facility] ([place]) - 02/12/2023 7:17 PM CDT ?? Urine pH is affected by diet, medications, systemic acid-base disturbances, and renal tubular function. ??pH may affect urinary stone formation. ??For example, urine pH below 6.0 may help reduce the tendency for calcium phosphate stones and pH greater than 6.0 may reduce the tendency for uric acid stone formation. Source: [facility] [employer]. Last revised 08-07-2017 us Juve Trejo MD LAB MICROBIOLOGY - GENERAL ORD ERABLES Final Result AILEEN [facility] ([place]) 1 [facility] Department [place] [address] * eGFR (02/12/2023 7:00 PM CDT) eGFR 56 mL/min/1. 73 m2 AILEEN [facility] ([place]) Comment: Interpretive Data Reference Interval Normal [...] LAB BLOOD ORDERABLES Final Res ult [facility]EN [facility] ([place]) 1 [facility] Department [place] [address] * Differential, auto (02/12/2023 7:00 [...] Neutrophil pct 67.7 % [facility] R [facility] ([place]) Comment: Interpretive Data Percent cell count reference [...] Final Res ult [facility] ([place]) 1 [facility] Department of Laboratories [place], [place] [address] * Comprehensive metabolic panel (02/12/2023 7:00 PM [...] Final Res ult [facility] ([place]) 1 [facility] Department [place] [address] * (ABNORMAL) CBC with auto differential (02/12/2023 7:00 PM CDT) WBC 8.6 3.8 - 9.9 K/cumm [facility] ([place]) Hgb 12.5 11.9 - 15.5 g/dL [facility] ([place]) Hct 39.0 35.6 - 45.5 % [facility] ([place]) Plt 386 150 - 400 K/cumm [facility] ([place]) MPV 8.8(L) 9.1 - 12.3 fL [facility] ([place]) RBC 4.12 3.90 - 5.20 M/cumm [facility] ([place]) MCV 94.7 81.3 - 96.4 fL CERNER [...] Final Res ult [facility] ([place]) 1 [facility] Department [place] [address] documented in this encounter Visit Diagnoses Diagnosis Weakness- Primary Other malaise and fatigue Confusion Unspecified psychosis documented in this encounter Care Teams Reversal Print Inspector Relationship Specialty Start Date End Date Servando Torre MD [address] [place] [address] PCP - General Family Medicine 06/19/22 Mariela Denton MD [address] [place] [address] Referring Physician Gastroenterology 06/19/22 Lexis Barroso OD [address] [place] [address] Assistant Director Of Nursing 09/19/22 documented as of this encounter
--- OUTSIDE RECORDS SUMMARY | 2024-07-15 17:43 | XMS_ITS | Encounter Summary ---
Author Organization [facility] Address [address] [facility] [address] [place] [address] Care Team Providers Care Embroidery Cutter Name Role Phone Servando Torre MD Primary Care Provider +1- [phone] Mariela Denton MD Unavailable [phone] [phone] Reason for Visit * Diagnostic Imaging (Routine) - Closed Specialty Diagnoses / Procedures Referred By Angel t Referred To Contact Diagnoses Chronic left shoulder pain Procedures XR Shoulder Left 2+ Vw Servando Torre MD [address] [place] [address] Phone: tel: fax: [facility] Referral ID Status Reason Start Date Expiration Date Visits Re quested Visits Authorized [id number] Closed 06/19/2022 07/19/2023 1 1 Encounter Details Date Type Department Care Team (Latest Contact Info) Description 06/19/2022 4:15 PM LIBRARY CIRCULATION CLERK Ancillary Procedure [facility] Imaging at [address] [id number] Chronic left shoulder pain Social History Tobacco [...] file Legal Sex Female 9:30 AM LIBRARY CIRCULATION CLERK Gender Identity Female 04/05/2022 6:17 PM CDT Sexual Orientation Straight 04/05/2022 6: 17 PM CDT documented as of this encounter Plan of Treatment Not on file documented as of this encounter Procedures Procedure Name Priority Date/Time Associated Diagnosis Comments XR SHOULDER LEFT 2 OR MORE VIEWS Schedule Routine, Read Routine (OP Routine) 06/19/2022 4:16 PM LIBRARY CIRCULATION CLERK Chronic left shoulder pain documented in this encounter Results * XR Shoulder Left 2+ Vw (06/19/2022 4:16 PM LIBRARY CIRCULATION CLERK) Anatomical Region Laterality Modality Upper Extremities, Shoulder Left Digi hortensia Radiography 06/20/2022 6:31 PM LIBRARY CIRCULATION CLERK Narrative 06/20/2022 6:32 PM LIBRARY CIRCULATION CLERK EXAM DESCRIPTION: ?? XR SHOULDER LEFT 2 [...] D: ??06/20/2022 6:32 PM T: Report ID: [id number] Reading Location: ??[id number] Procedure Note Kailey Layton MD - 06/20/2022 [...] Kailey Layton M.D. TW T: Report ID: [id number] Reading Location: [place] [address] us Servando Torre MD IMG XR PROCEDURES Final Res ult documented in this encounter Visit Diagnoses Diagnosis Chronic left shoulder pain Pain in joint, shoulder region documented in this encounter Care Teams Embroidery Cutter Relationship Specialty Start Date End Date Servando Torre MD [address] [facility] [address] [place] [address] PCP - General Family Medicine 06/19/22 Mariela Denton MD [address] [place] [address] Referring Physician Gastroenterology 06/19/22 documented as of this encounter
--- OUTSIDE RECORDS SUMMARY | 2024-07-15 17:43 | XMS_ITS | Encounter Summary ---
Author Organization [facility] Healthcare Address [address] [place] [address] Care Team Providers Care Animal Rides Manager Name Role Phone Servando Torre MD Primary Care Provider +1- [phone] Mariela Denton MD Unavailable +1 -[phone] Lexis Barroso OD Unavailable +1- [phone] Encounter Details Date Type Department Care Team (Latest Contact Info) Description 02/07/2023 10:42 AM CDT - 02/07/2023 11:59 PM CDT Hospital Encounter 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 73 m2 AILEEN MATTHEW [...] CDT 02/07/2023 4:22 PM CDT Marixa San NNPS LAB BLOOD ORDERABLES Final Resul t [facility] [address] Department [place] [address] * Differential, auto (02/07/2023 10:42 AM CDT) Neutrophil abs 5.4 1.7 - 6.5 K/cumm [facility] Imm gran abs 0.1 0.0 - 0.1 K/cumm [facility] Lymphocyte abs 1.8 0.8 - 3.3 K/cumm [facility] Monocyte abs 0.7 0.2 - 0.8 K/cumm [facility] Eosinophil abs 0.2 0.0 - 0.5 K/cumm [facility] Basophil abs 0.0 0.0 - 0.1 K/cumm [facility] Neutrophil pct 66.4 % [facility] Comment: Interpretive Data Percent cell count reference ranges are not reported, since discordance with absolute values may lead to misinterpretation of CBC data. Current Interpretive Data was last revised on 2017. Imm gran pct 1.3 % [facility] Comment: Interpretive Data Percent cell count reference ranges are not reported, since discordance with absolute values may lead to misinterpretation of CBC data. Current Interpretive Data was last revised on 2017. Lymphocyte pct 21.4 % [facility] Comment: Interpretive Data Percent cell count reference ranges are not reported, since discordance with absolute values may lead to misinterpretation of CBC data. Current Interpretive Data was last revised on 2017. Monocyte pct 8.3 % [facility] Comment: Interpretive Data Percent cell count reference ranges are not reported, since discordance with absolute values may lead to misinterpretation of CBC data. Current Interpretive Data was last revised on 2017. Eosinophil pct 2.2 % [facility] Comment: Interpretive Data Percent cell [...] ORDERABLES Final Resul t Performing Organization Address City/[facility]/ZIP Co de Phone Number [facility] [address] Department [place] [address] * (ABNORMAL) CBC with auto differential (02/07/2023 10:42 AM CDT) WBC 8.2 3.8 - 9.9 K/cumm [facility] Hgb 12.5 11.9 - 15.5 g/dL [facility] Hct 41.3 35.6 - 45.5 % [facility] Plt 350 150 - 400 K/cumm [facility] MPV 9.5 9.1 - 12.3 fL [facility] RBC 4.24 3.90 - 5.20 M/cumm [facility] MCV 97.4(H) 81.3 - 96.4 fL [facility] MCH 29.5 27.1 - 33.3 pg [facility] MCHC 30.3(L) 32.3 - 35.7 g/dL [facility] RDW CV 14.7 11.1 - 14.9 % [facility] RDW SD 51.9(H) 35.7 - 48.1 fL [facility] NRBC abs 0.02(H) 0.00 - 0.01 K/cumm [facility] Blood 02/07/2023 10:4 2 AM CDT 02/07/2023 4:21 PM CDT us Marixa San NP LAB BLOOD ORDERABLES Final Resul t Performing Organization Address City/[facility]/ZIP Co de Phone Number AILEEN MATTHEW [address] Department [place] [address] * (ABNORMAL) Comprehensive metabolic panel [...] ORDERABLES Final Resul t Performing Organization Address City/[facility] Co de Phone Number AILEEN MATTHEW [address] Department of Laboratories [place], [place] [id number] * Pro B-type natriuretic peptide (02/07/2023 10:42 [...] CDT 02/07/2023 4:21 PM CDT Marixa San NNPS LAB BLOOD ORDERABLES Final Resul t Performing Organization Address City/State/ZIP Co ca Phone Number AILEEN MATTHEW [address] Department [place] [address] documented in this encounter Visit Diagnoses Diagnosis Seizure (HCC) Other convulsions Acute pulmonary edema (CMS/HCC) (HCC) Unspecified acute edema of lung documented in this encounter Care Teams Animal Rides Manager Relationship Specialty Start Date End Date Servando Torre MD [facility] [address] PCP - General Family Medicine 06/19/22 Mariela Denton MD [facility] [address] [place] [address] Referring Physician Gastroenterology 06/19/22 Lxeis Barroso OD [address] [place] [address] Pipe Changer 09/19/22 documented as of this encounter
--- OUTSIDE RECORDS SUMMARY | 2024-07-15 17:43 | XMS_ITS | Encounter Summary ---
Author Organization [facility] Healthcare Address [address] [place] [address] Care Team Providers Care Car Pick Up Driver Name Role Phone Servando Torre MD Primary Care Provider Mariela Denton MD Unavailable [phone] [phone] Encounter Details Date Type Department Care Team (Latest Contact Info) Description 07/03/2022 4:26 PM TANK TRUCK MILK RECEIVER - 07/03/2022 11:59 PM TANK TRUCK MILK RECEIVER Hospital Encounter [facility] [address] [place], [place] [id number] Cough, unspecified type; Positive self-administered antigen test [...] on file Legal Sex Female 9:30 AM TANK TRUCK MILK RECEIVER Gender Identity Female 04/05/2022 6:17 PM [...] - 07/03/2022 11:59 PM CST Viewed on [employer] TRUCK MILK RECEIVER * Result Encounter Note - Tammy Meehan NP - 07/03/2022 7:58 PM CST Please notify patient of positive COVID-19 test. Patient should rest, stay hydrated, and take hrmu-ndh-mcoaygu medications as needed. Per CDC guidelines, patient [...] doctor or in the ER if needed. TRUCK MILK RECEIVER documented in this encounter Plan of Treatment Not on file documented as of this encounter Procedures Procedure Name Priority Date/Time Associated Diagnosis Comments INFLUENZA A/B, RSV, AND COVID-19 PCR Routine 07/03/2022 4:26 PM TANK TRUCK MILK RECEIVER Cough, unspecified type Positive self-administered antigen test for COVID-19 documented in this encounter Results * (ABNORMAL) Influenza A/B, RSV, and COVID-19 PCR Nasopharyngeal (07/03/2022 4:26 PM TANK TRUCK MILK RECEIVER) COVID-19 RNA Positive(A) Negative [facility] Influenza A RNA Negative Negative [facility] Influenza B RNA Negative Negative [facility] RSV RNA Negative Negative [facility] Comment: Interpretive data: This test is performed using the locr Xpert Xpress CoV-2/Flu/RSV plus assay. This is [...] revised 2021. Nasopharyngeal 07/03/2022 4: 26 PM TANK TRUCK MILK RECEIVER 07/03/2022 6:41 PM TANK TRUCK MILK RECEIVER Narrative [facility] - 07/03/2022 7:57 PM TANK TRUCK MILK RECEIVER Is the Patient experiencing symptoms consistent with COVID?->Yes Date of Symptom Onset->06/25/22 Reason for testing?->Symptomatic Known exposure to confirmed or suspected COVID-19 case?->No Is the patient experiencing any symptoms consistent with COVID (eg. Fever, cough, shortness of breath)?->Yes What is the reason for testing?->Symptoms of COVID-19 in low-risk group (Batched) us Pricilla Olguin NP LAB MICROBIOLOGY - GENERAL ORDE SAPPHIRE Final Result [facility] [address] Department [place] [address] documented in this encounter Visit Diagnoses Diagnosis Cough, unspecified type Positive self-administered antigen test for COVID-19 documented in this encounter Additional Health Concerns Infection Onset Date Last Indicated Resolved Time COVID: Suspected 07/03/2022 07/03/2022 07/03/2022 7:57 PM TANK TRUCK MILK RECEIVER COVID19 07/03/2022 07/03/2022 07/13/2022 3:05 AM TANK TRUCK MILK RECEIVER documented as of this encounter Care Teams Car Pick Up Driver Relationship Specialty Start Date End Date Servando Torre MD [address] [facility] [address] [place] [address] PCP - General Family Medicine 06/19/22 Mariela Denton MD [address] [place] [address] Referring Physician Gastroenterology 06/19/22 documented as of this encounter
--- OUTSIDE RECORDS SUMMARY | 2024-07-15 17:43 | XMS_ITS | Encounter Summary ---
Author Organization [facility] Healthcare Address [address] [place] [address] Care Team Providers Care Artificial Intelligence Specialist Name Role Phone Servando Torre MD Primary Care Provider [phone] Mariela Denton MD Unavailable [phone] Lexis Barroso OD Unavailable [phone]- [phone] Reason for Visit * MRI/CAT/PET Scan (Routine) - Closed Specialty Diagnoses / Procedures Referred By Contac t Referred To Contact Procedures Neuro CT Outside Reference Karl Turner MD PhD [address] [facility] [address] [place] [address] Phone: tel: fax: Referral ID Status Reason Start Date Expiration Date Visits Re quested Visits Authorized [id number] Closed 02/17/2023 03/18/2024 1 1 Encounter Details Date Type Department Care Team (Latest Contact Info) Description 02/17/2023 5:44 PM CDT - 02/17/2023 11:59 PM CDT Hospital Encounter [facility] [address] [place] [address] Discharge Disposition: Discharge to home or [...] on file Legal Sex Female 9:30 AM TOP ICER Gender Identity Female 04/05/2022 6:17 PM CDT [...] and have not been reviewed by [facility] Radiology. ??There will be no report generated by a [facility] Radiologist. Narrative RAD_P[facility] - 02/17/2023 5:44 PM CDT EXAMINATION: ??Images For Reference Purposes Only us Karl Turner MD PhD IMG CT PROCEDURES Final Re sult [facility] documented in this encounter Visit Diagnoses Not on filedocumented in this encounter Care Teams Artificial Intelligence Specialist Relationship Specialty Start Date End Date Servando Torre MD [address] [facility] [address] [place] [address] PCP - General Family Medicine 06/19/22 Mariela Denton MD [address] [place] [address] Referring Physician Gastroenterology 06/19/22 Lexis Barroso OD [address], [place] [address] Civil Engineer In Training 09/19/22 documented as of this encounter
--- OUTSIDE RECORDS SUMMARY | 2024-07-15 17:43 | XMS_ITS | Encounter Summary ---
Author Organization [facility] Healthcare Address [address] [place] [address] Care Team Providers Care International Marketing Specialist Name Role Phone Servando Torre MD Primary Care Provider [phone] Mariela Denton MD Unavailable [phone] [phone] Lexis Barroso OD Unavailable +- [phone] Reason for Visit * Auth/Cert (Routine) Specialty Diagnoses / Procedures Referred By Contac t Referred To Contact Diagnoses Chronic ulcerative colitis with complication, unspecified location (HCC) Chronic ulcerative colitis with complication, unspecified location (HCC) [K51.919] Procedures CT COLONOSCOPY FLX DX W/COLLJ SPEC WHEN PFRMD CT COLONOSCOPY W/BIOPSY SINGLE/MULTIPLE COLONOSCOPY Referral ID Status Reason Start Date Expiration Date Visits Re quested Visits Authorized [id number] 1 1 Encounter Details Date Type Department Care Team (Late st Contact Info) Description 11/29/2022 10:30 AM CDT - 11/29/2022 11:00 AM CDT Surgery [facility] Endoscopy [address] [address] Mariela Denton MD [address] [facility] [address] [place] [address] COLONOSCOPY Surgery Details Date/Time Status Location OR Service Patient Class Case Class Case Type Trauma Case? 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 You may eat and drink at . [...] your physician. Pain/Bleeding: You have had {POST BIOPSY/DILITATION:07740939} performed during the procedure. You may expect a little bleeding from the site. Within the next 48 hours, if the bleeding becomes excessive or is accompanied by abdominal or chest pain, please call your physician immediately. If you are on aspirin or NSAIDS (non-steroidal anti-inflammatory drugs) then you can resume in {Endo ASA/NSAIDS:92500243}. If no follow-up appointment is required, you [...] Female Attending MD: Mariela Denton M.D. Room: [facility] ENDOSCOPY ROOM 01 Note Status: Finalized [...] scope was passed under direct vision. The [id number] was introduced through the anus and advanced [...] hours - Please call the Nurse Coordinator: [phone] After hours, evening, nights, weekends and holidays - Please call the hospital automatic punch 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 at and ask for the GI fellow international affairs vice president. Electronically signed by Mariela Denton M.D. Mariela Denton M.D. 11/29/2022 10:54:08 AM Number of Addenda: 0 Note Initiated On: 11/29/2022 10:18 AM documented in this encounter Miscellaneous Notes * Perioperative Nursing Note - Gay Jasso RN - 11/29/2022 10:50 AM CDT discussed findings. Discharge instructions given to patient, (and by phone - directed to pick up truck driver location).Understanding expressed, questions answered.(No signatures due to CoVid19 protocol) Tolerating po fluids. * Pre-Procedure Instructions - Riri Bro RN - 11/28/2022 12:38 PM CDT Please follow all instruction you were given regarding your bowel prep. When you arrive come to [facility] Hospital entrance. As you enter there will [...] non-medical transport)by yourself will be allowed Your ice delivery driver must be at least 18 y/o If your ice delivery driver chooses not to come in to the building or will be picking you up after your procedure-we will call your ice delivery driver to confirm your ride home prior to the procedure start time Masking at [facility] is now optional. You may bring a mask and masks are available at hospital entrance. We respect personal choice of anyone who chooses to mask. Be assured employees are ready to mask upon request when providing care. My number is [phone] documented in this encounter Plan of Treatment [...] Female Attending MD: Mariela Denton M.D. Room: [facility] ENDOSCOPY ROOM 01 Note Status: Finalized [...] The scope was passed under direct vision.The [id number] was introduced through the anusand advanced to [...] business hours - Please call theNurse Coordinator: [phone] After hours, evening, nights, weekends and holidays- Please call the hospital automatic punch 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 at and ask for the GI fellow international affairs vice president. Electronically signed by Mariela Denton M.D. Mariela Denton M.D. 11/29/2022 10:54:08 AM Number of Addenda: 0 Note Initiated On: 11/29/2022 10:18 AM Mariela Denton MD ENDOSCOPY PROCEDURE S Final Result * POCT glucose (11/29/2022 9:46 AM CDT) [employer] Signature Glucose, POC 166 70 - 199 mg/dL [facility] ROSAS Comment: Interpretive Data Glucose is assumed to be non-fasting. Fasting Glucose reference ranges are: 0 - 150 years: ??70 mg/dL - 99 mg/dL Current interpretive data was last revised on 2014. POC Performer [id number] AILEEN ROSAS POC Device Number [id number] [facility] Blood 11/29/2022 9:46 AM CDT 11/29/2022 9:46 AM CDT Mariela Denton MD LAB POCT ORDERABLES - DEVICE Final Result [facility] [address] [facility] [place] [address] documented in this encounter Visit Diagnoses Diagnosis [...] 11/29/2022 documented in this encounter Care Teams International Marketing Specialist Relationship Specialty Start Date End Date Servando Torre MD [facility] [address] PCP - General Family Medicine 06/19/[address] [facility] [address] [place] [address] Referring Physician Gastroenterology 06/19/22 Lexis Barroso OD [address] [place] [address] Machinist Wood 09/19/22 documented as of this encounter
--- OUTSIDE RECORDS SUMMARY | 2024-07-15 17:43 | XMS_ITS | Encounter Summary ---
Author Organization [facility] Medical Group Address [address] [facility] [address] [place] [address] Care Team Providers Care Speech Therapist Name Role Phone Servando Torre MD Primary Care Provider [phone]- [phone] Mariela Denton MD Unavailable +1 -[phone] Lexis Barroso OD Unavailable +1- [phone] Reason for Visit * Reason Comments Health Maintenance 3 mo Encounter Details Date Type Department Care Team (Late st Contact Info) Description 12/19/2022 2:00 PM CDT Office Visit [facility] Primary Care at [address] [address] Servando Torre MD [address] [place] [address] [address] [place] [address] Hypertension associated with type 2 [...] on file Legal 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 You may receive a phone call, text, [...] last revised on 2014. POC Performer 11/29/2022 [id number] Final POC Device Number 11/29/2022 [id number] Final Assessment/Plan Diagnoses and all orders for [...] office note has been partially dictated using Tagoo software, and as a result portions of the record may have been created with this software. Occasional wrong-word or 'swlxt-j-dpcw' substitutions may have occurred due to the [...] children were not included. ?? (Diabetes Care 31:0912-0487, 2007). ??The eAG is not equivalent to a fasting glucose. Blood 03/21/2023 3:20 PM CDT 03/21/2023 6:04 PM CDT Servando Torre MD LAB BLOOD ORDERABLES Final Result Performing Organization Address [facility] Co co Phone Number ALBERTCITLALI [address] [place] [address] * (ABNORMAL) Albumin Creatinine Ratio, [...] PM CDT 03/21/2023 6:04 PM CDT Result [facility] Servando Torre MD LAB URINE ORDERABLES Final Result Performing Organization Address [facility] Co de Phone Number AILEEN MATTHEW [address] [place] [place] [address] documented in this encounter Visit Diagnoses Diagnosis Hypertension associated with type 2 diabetes mellitus (HCC)- Primary Hyperlipidemia due to type 2 diabetes mellitus (HCC) Gastroesophageal reflux disease without esophagitis Esophageal reflux documented in this encounter Care Teams Speech Therapist Relationship Specialty Start Date End Date Servando Torre MD [address] [address] PCP - General Family Medicine 06/19/22 Mariela Denton MD [address] [place] [address] Referring Physician Gastroenterology 06/19/22 Lexis Barroso OD [address] [place] [address] Videogame Designer 09/19/22 documented as of this encounter
--- OUTSIDE RECORDS SUMMARY | 2024-07-15 17:43 | XMS_ITS | Encounter Summary ---
Author Organization [facility] Medical Group Address [address] [facility] [address] [place] [address] Care Team Providers Care Pedicab Driver Name Role Phone Servando Torre MD Primary Care Provider [phone]- [phone] Mariela Denton MD Unavailable +1 -[phone] Lexis Barroso OD Unavailable +1- [phone] Encounter Details Date Type Department Care Team (Late st Contact Info) Description 02/04/2023 Telephone [facility] Medical [facility] Primary Care at [place] [address] [place] [address] Servando Torre MD [address] [place] [address] [address] [place] [address] Social History Tobacco Use Types [...] on file Legal 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 Gender Identity Female 04/05/2022 6:17 PM CDT Sexual Orientation Straight 04/05/2022 6: 17 PM CDT documented as of this encounter Plan of Treatment Not on file documented as of this encounter Visit Diagnoses Not on filedocumented in this encounter Care Teams Pedicab Driver Relationship Specialty Start Date End Date Servando Torre MD [address] [facility] [address] [place] [address] PCP - General Family Medicine 06/19/22 Mariela Denton MD [address] [place] [address] Referring Physician Gastroenterology 06/19/22 Lexis Barroso OD [address] [place] [address] Engineering Designer 09/19/22 documented as of this encounter
--- OUTSIDE RECORDS SUMMARY | 2024-07-15 17:43 | XMS_ITS | Encounter Summary ---
Author Organization [facility] Medical Group Address [address] [facility] [address] [place] [address] Care Team Providers Care Automotive Collision Repair Instructor Name Role Phone Servando Torre MD Primary Care Provider +1- [phone] Mariela Denton MD Unavailable +1 -[phone] Lexis Barroso OD Unavailable +1- [phone] Encounter Details Date Type Department Care Team (Late st Contact Info) Description 12/29/2022 Patient Message [facility] Medical [facility] Primary Care at [address] [address] Servando Torre MD [address] [place] [address] [address] [place] [address] Wind Farm Engineer Social History Tobacco Use Types Packs/Day Years [...] file Legal Sex Female 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 [address] [place] [address] PCP - General Family Medicine 06/19/22 Mariela Denton MD [address] [place] [address] Referring Physician Gastroenterology 06/19/22 Lexis Barroso OD [address] [place] [address] Tumbler Tender 09/19/22 documented as of this encounter
--- OUTSIDE RECORDS SUMMARY | 2024-07-15 17:43 | XMS_ITS | Encounter Summary ---
Author Organization [facility] Address [address] [facility] [address] [place] [address] Care Team Providers Care Sr. Consultant Name Role Phone Servando Torre MD Primary Care Provider [phone]- [phone] Mariela Denton MD Unavailable [phone] [phone] Lexis Barroso OD Unavailable +1- [phone] Reason for Referral * Diagnostic Imaging (Routine) - Closed Specialty Diagnoses / Procedures Referred By Contac t Referred To Contact Diagnoses Screening for osteoporosis Asymptomatic menopausal state Procedures Dexa Axial Skeleton Bone Density 1 or 2 Site Servando Torre MD [address] [place] [address] [address] [place] [address] Phone: tel: fax: External Order Referral ID Status Reason Start Date Expiration Date Visits Re quested Visits Authorized [id number] Closed 09/19/2022 10/19/2023 1 1 YTICAL LABORATORY TECHNICIAN Reason for Visit * Reason Comments Follow-up 3 month f/u Encounter Details Date Type Department Care Team (Late Contact Info) Description 09/19/2022 2:00 PM ANALYTICAL LABORATORY TECHNICIAN Office Visit [facility] Primary Care at [address] [phone] Servando Torre MD [address] [facility] [address] [place] [address] Type 2 diabetes mellitus with [...] on file Legal Sex Female 9:30 AM ANALYTICAL LABORATORY TECHNICIAN Gender Identity Female 04/05/2022 6:17 PM CDT Sexual Orientation Straight 04/05/2022 6: 17 PM CDT documented as of this encounter Last Filed Vital Signs Vital Sign Reading Time Taken Comments Blood Pressure 130/74 09/19/2022 2:13 PM ANALYTICAL LABORATORY TECHNICIAN Pulse 77 09/19/2022 2:13 PM ANALYTICAL LABORATORY TECHNICIAN Temperature 35.9 ??C (96.7 ??F) 09/19/2022 2:13 PM CS T Respiratory Rate 16 09/19/2022 2:13 PM ANALYTICAL LABORATORY TECHNICIAN Oxygen Saturation 97% 09/19/2022 2:13 PM ANALYTICAL LABORATORY TECHNICIAN Inhaled Oxygen Concentration - - Weight 69.9 kg (154 lb) 09/19/2022 2:13 PM ANALYTICAL LABORATORY TECHNICIAN Height 157.5 cm (5' 2 ) 09/19/2022 2:13 PM ANALYTICAL LABORATORY TECHNICIAN Body Mass Index 28.17 09/19/2022 2:13 PM ANALYTICAL LABORATORY TECHNICIAN documented in this encounter Patient Instructions * Patient Instructions* Regina Toscano MA - 09/19/2022 2:00 PM ANALYTICAL LABORATORY TECHNICIAN Increasing metformin to 850 mg twice daily, a1c increased to 7.2% Continuing current regimen otherwise Continue to avoid starches, potatoes, other carb-rich foods Bone density study ordered (to rule out osteoporosis), at [facility] GET 3 MONTHS LAB DONE IN NOVEMBER Thanks for coming in today! My medical assistants and I are thankful you have trusted us with your care, and hope that you received EXCELLENT care today! Please do not hesitate to call if you have any questions or concerns at [phone]. You may receive a phone call, text, MYCHART message, or e-mail asking about your care today. We would love to hear your feedback on how EXCELLENT your care wastoday! Wishing you better health, always. Dr. Torre YTICAL LABORATORY TECHNICIAN YTICAL LABORATORY TECHNICIAN YTICAL LABORATORY TECHNICIAN * Attachments The following attachments cannot be sent through Care Everywhere. * Memory Loss in Older Adults (General Information) (Chinese) documented in this encounter Ordered Prescriptions Prescription [...] going well. She is getting PT at [facility], feels it is helping. Her arm is [...] being taken. She does not see a home service demonstrator.Eyeexam is current. Hypertension This is a chronic problem. Associated symptoms include blurred vision. Pertinent negatives include no chest pain, headaches, malaise/fatigue, neck pain, palpitations, peripheral edema, PND, shortnessof breath or sweats. Past treatments include calcium channel blockers and beta blockers. Compliance problems include diet and exercise. There is no history of kidney disease, CAD/CT or heart failure. Hyperlipidemia This is a [...] hyperglycemia, without long-term current use of insulin ([facility]) ([facility]) (Primary) - POCT hemoglobin A1c - metFORMIN [...] created with this software. Occasional wrong-word or '[id number]' substitutions may have occurred due to the inherent limitations of voice recognition software. Read the chartcarefully and recognize, using context, where substitutions have occurred. YTICAL LABORATORY TECHNICIAN documented in this encounter Miscellaneous Notes * [...] HEMOGLOBIN A1C Routine 09/19/2022 2 :51 PM ANALYTICAL LABORATORY TECHNICIAN Type 2 diabetes mellitus with hyperglycemia, without long-term current use of insulin ([facility]/HCC) (HCC) documented in this encounter [...] RDW SD 54.9(H) 35.7 - 48.1 fL [facility] NRBC abs 0.02(H) 0.00 - 0.01 K/cumm [facility] Blood 03/21/2023 3:20 PM CDT 03/21/2023 6:04 PM CDT Servando Torre MD LAB BLOOD ORDERABLES Final Result [facility] [address] [place] [address] * (ABNORMAL) Comprehensive metabolic panel (03/21/2023 3:20 PM CDT) Sodium 141 135 - 145 mmol/L [facility] Potassium, pl 3.9 3.3 - 4.9 mmol/L [facility] Chloride 102 97 - 110 mmol/L [facility] CO2 29 22 - 32 mmol/L [facility] Anion gap 10 2 - 15 mmol/L [facility] BUN 12 6 - 25 mg/dL [facility] Creatinine 0.79 0.60 - 1.10 mg/dL [facility] Glucose 130 70 - 199 mg/dL [facility] Comment: Interpretive Data Fasting glucose >/= [...] BLOOD ORDERABLES Final Result Performing Organization Address City/State/[facility] Phone Number CERNER [address] [place] [address] * (ABNORMAL) Lipid panel (03/21/2023 3:20 PM [...] Final Result Performing Organization Address City/State/[place] Phone Number AILEEN [phone] [address] [place] [address] * Dexa Axial Skeleton Bone Density 1 or 2 Site (12/12/2022 2:33 PM CDT) Anatomical Region Laterality Modality Body N/A Radiographic Keyanna ging Narrative 12/12/2022 3:00 PM CDT Patient Name: Lisa Allen Date of : 1945 Date of scan: 12/12/2022 Bone mineral density was performed on a [employer] Discovery Densitometer. ?? Based on machine cross-calibration [...] by the International Society of Clinical Densitometry. [id number] us Servando Torre MD IMG DXA PROCEDURES Final Re sult * POCT hemoglobin A1c (09/19/2022 2:51 PM ANALYTICAL LABORATORY TECHNICIAN) Hemoglobin A1C, POC 7.2 % Blood 09/19/2022 2:51 PM ANALYTICAL LABORATORY TECHNICIAN Servando Torre MD POINT OF CARE TEST [...] documented as of this encounter Care Teams Sr. Consultant Relationship Specialty Start Date End Date Servando Torre MD [address] [address] PCP - General Family Medicine 06/19/22 Mariela Denton MD [address] [place] [address] Referring Physician Gastroenterology 06/19/22 Lexis Barroso OD [address] [place] [address] Metal And Plastic Heater 09/19/22 documented as of this encounter
--- OUTSIDE RECORDS SUMMARY | 2024-07-15 17:43 | XMS_ITS | Encounter Summary ---
Author Organization [facility] Address [address] [facility] [address] [place] [address] Care Team Providers Care Loss Prevention Representative Name Role Phone Servando Torre MD Primary Care Provider Mariela Denton MD Unavailable [phone] [phone] Reason for Visit * Reason Onset Date Comments Lab Results 08/02/2022 Encounter Details Date Type Department Care Team (Late st Contact Info) Description 08/02/2022 Telephone [facility] Medical [facility] Primary Care at [address] [address] Servando Torre MD [address] [place] [address] [address] [place] [address] Lab Results Social History Tobacco [...] on file Legal Sex Female 9:30 AM TELEGRAPH MESSENGER Gender Identity Female 04/05/2022 6:17 PM CDT Sexual Orientation Straight 04/05/2022 6: 17 PM CDT documented as of this encounter Miscellaneous Notes * Telephone Encounter - Regina Toscano MA - 08/02/2022 2:52 PM TELEGRAPH MESSENGER Attempted to contact Lisa with no answer. LMOM to contact the office back at [phone] Regarding: lab results Telephone task has been made. Please relay: Cholesterol well controlled, nice job GRAPH MESSENGER * Telephone Encounter - Regina Toscano MA - 08/02/2022 2:51 PM TELEGRAPH MESSENGER ----- Message from Marixa San NP sent at 07/26/2022 4:29 PM TELEGRAPH MESSENGER ----- Cholesterol well controlled, nice job GRAPH MESSENGER documented in this encounter Plan of Treatment Not on file documented as of this encounter Visit Diagnoses Not on filedocumented in this encounter Additional Health Concerns Infection Onset Date Last Indicated Resolved Time COVID: Recovered Comment:Added based on recent COVID infection. 07/13/2022 07/26/2022 10/11/2022 3:05 AM C DT documented as of this encounter Care Teams Loss Prevention Representative Relationship Specialty Start Date End Date Servando Torre MD [address] [facility] [address] [place] [address] PCP - General Family Medicine 06/19/22 Mariela Denton MD [address] [place] [address] Referring Physician Gastroenterology 06/19/22 documented as of this encounter
--- OUTSIDE RECORDS SUMMARY | 2024-07-15 17:43 | XMS_ITS | Encounter Summary ---
Author Organization [facility] Address [address] [place] [address] Phone Care Team Providers Care Sinter Press Operator Name Role Phone Servando Torre MD Primary Care Provider Mariela Denton MD Unavailable [phone] [phone] Lexis Barroso OD Unavailable [phone]- [phone] Reason for Visit * Reason Comments Osteopenia * Diagnostic Imaging (Routine) - Closed Specialty Diagnoses / Procedures Referred By Angel braswell Referred To Contact Diagnoses Screening for osteoporosis Asymptomatic menopausal state Procedures Dexa Axial Skeleton Bone Density 1 or 2 Site Servando Torre MD [address] [facility] [address] [place] [address] Phone: tel: fax: External Order Referral ID Status Reason Start Date Expiration Date Visits Re quested Visits Authorized [id number] Closed 09/19/2022 10/19/2023 1 1 Encounter Details Date Type Department Care Team (Latest Contact Info) Description 12/12/2022 2:30 PM CDT Clinical Support [place] [id number] [facility] 5th [place] [address] [place] [address] Postmenopausal (Primary Dx); Screening for [...] on file Legal Sex Female 9:30 AM SAFETY TECH Gender Identity Female 04/05/2022 6:17 PM CDT [...] Bone mineral density was performed on a [employer] Discovery Densitometer. ?? Based on machine cross-calibration [...] by the International Society of Clinical Densitometry. [id number] us Servando Torre MD IMG DXA PROCEDURES Final Re sult documented in this encounter Visit Diagnoses Diagnosis Postmenopausal- Primary Asymptomatic postmenopausal status (age-related) (natural) Screening for osteoporosis Special screening for osteoporosis Asymptomatic menopausal state Osteopenia of multiple sites documented in this encounter Care Teams Sinter Press Operator Relationship Specialty Start Date End Date Servando Torre MD [address] [facility] [address] [place] [address] PCP - General Family Medicine 06/19/22 Mariela Denton MD [address] [place] [address] Referring Physician Gastroenterology 06/19/22 Lexis Barroso OD [address] [place] [address] Dedenter 09/19/22 documented as of this encounter
--- OUTSIDE RECORDS SUMMARY | 2024-07-15 17:43 | XMS_ITS | Encounter Summary ---
Author Organization [facility] Address [address] [place] [address] Phone Care Team Providers Care Sheet Metal Worker Maintenance Name Role Phone Servando Torre MD Primary Care Provider [phone] Mariela Denton MD Unavailable [phone] [phone] Lexis Barroso OD Unavailable [phone]- [phone] Encounter Details Date Type Department Care Team (Late st Contact Info) Description 02/17/2023 Telephone [facility] General Neurology [address] [facility] 6th [place] [address] [place] [address] Eileen Clement, RN Social History [...] on file Legal 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
--- OUTSIDE RECORDS SUMMARY | 2024-07-15 17:43 | XMS_ITS | Encounter Summary ---
Author Organization [facility] Address [address] [facility] [address] [place] [address] Care Team Providers Care Nut Steamer Name Role Phone Servando Torre MD Primary Care Provider Mariela Denton MD Unavailable [phone] Encounter Details Date Type Department Care Team (Late st Contact Info) Description 07/12/2022 Telephone [facility] Primary Care at [address] [address] Servando Torre MD [address] [place] [address] [address] [place] [address] Social History Tobacco Use Types [...] on file Legal Sex Female 9:30 AM SEE SUPERVISOR Gender Identity Female 04/05/2022 6:17 PM CDT Sexual Orientation Straight 04/05/2022 6: 17 PM CDT documented as of this encounter Miscellaneous Notes * Telephone Encounter - Servando Torre MD - 07/12/2022 4:18 PM SEE SUPERVISOR ordered SUPERVISOR * Telephone Encounter - Vero Antonio - 07/12/2022 1:36 PM CST Pt is currently being see for her L shoulder with [facility] in [place] , but the pt has been having some gait and balance issues. They are requesting a script for Physical therapy to treat the pt. For any questions you can speak with the provider Saul Ribera. Fx [phone] SUPERVISOR documented in this encounter Plan of Treatment Not on file documented as of this encounter Visit Diagnoses Diagnosis Balance problem- Primary Abnormality of gait documented in this encounter Additional Health Concerns Infection Onset Date Last Indicated Resolved Time COVID19 07/03/2022 07/03/2022 07/13/2022 3:05 AM SEE SUPERVISOR documented as of this encounter Care Teams Nut Steamer Relationship Specialty Start Date End Date Servando Torre MD [address] [place] [address] PCP - General Family Medicine 06/19/22 Mariela Denton MD [address] [place] [address] Referring Physician Gastroenterology 06/19/22 documented as of this encounter
--- OUTSIDE RECORDS SUMMARY | 2024-07-15 17:43 | XMS_ITS | Encounter Summary ---
Author Organization [facility] Address [address] [facility] [address] [place] [address] Care Team Providers Care Associate Creative Director Name Role Phone Servando Torre MD Primary Care Provider Mariela Denton MD Unavailable [phone] Reason for Visit * Reason Comments Cough Cough ongoing since positive covid on 06/25 Encounter Details Date Type Department Care Team (Late st Contact Info) Description 07/03/2022 4:00 PM AGRICULTURAL CHEMIST Office Visit [facility] Out[facility] [address] [address] Pricilla Olguin NP [address] [place] [address] [address] [place] [address] Cough, unspecified type (Primary Dx); [...] file Legal Sex Female 9:30 AM AGRICULTURAL CHEMIST Gender Identity Female 04/05/2022 6:17 PM CDT Sexual Orientation Straight 04/05/2022 6: 17 PM CDT documented as of this encounter Last Filed Vital Signs Vital Sign Reading Time Taken Comments Blood Pressure 148/88 07/03/2022 4:09 PM AGRICULTURAL CHEMIST Pulse 68 07/03/2022 4:09 PM AGRICULTURAL CHEMIST Temperature 37 ??C (98.6 ??F) 07/03/2022 4:09 PM AGRICULTURAL CHEMIST Respiratory Rate 18 07/03/2022 4:09 PM AGRICULTURAL CHEMIST Oxygen Saturation 98% 07/03/2022 4:31 PM AGRICULTURAL CHEMIST Inhaled Oxygen Concentration - - Weight 70.8 kg (156 lb) 07/03/2022 4:09 PM AGRICULTURAL CHEMIST Height 157.5 cm (5' 2 ) 07/03/2022 4:09 PM AGRICULTURAL CHEMIST Body Mass Index 28.53 07/03/2022 4:09 PM AGRICULTURAL CHEMIST documented in this encounter Patient Instructions * Patient Instructions* Pricilla Olguin NP - 07/03/2022 4:00 PM AGRICULTURAL CHEMIST Self-care: Rest as much as possible. Slowly [...] yourself from other people and pets in [facility]: Do not go to work, school, or [...] Quarantine for those exposed to COVID-19 Additionally, [facility] is updating the recommended quarantine period for [...] to stay home until your fever resolves. CULTURAL CHEMIST documented in this encounter Ordered Prescriptions Prescription [...] due to 3 other people at [facility] coming down with COVID. Patient states she [...] tenderness or frontal sinus tenderness. Mouth/Throat: Lips: [place]. Mouth: Mucous membranes are moist. Tongue: Tongue [...] yourself from other people and pets in [facility]: Do not go to work, school, or [...] know about COVID-19 and the Omicron variant, [facility] is shortening the recommended time for isolation [...] Quarantine for those exposed to COVID-19 Additionally, [facility] is updating the recommended quarantine period for [...] ask questions, questions answered. Pricilla Olguin NP CULTURAL CHEMIST documented in this encounter Plan of Treatment Not on file documented as of this encounter Results * (ABNORMAL) Influenza A/B, RSV, and COVID-19 PCR Nasopharyngeal (07/03/2022 4:26 PM AGRICULTURAL CHEMIST) Pathologist [facility] COVID-19 RNA Positive(A) Negative [facility] Influenza A RNA Negative Negative [facility] Influenza B RNA Negative Negative [facility] RSV RNA Negative Negative [facility] Comment: Interpretive data: This test is performed using the [employer] Xpert Xpress CoV-2/Flu/RSV plus assay. This is [...] revised 2021. Nasopharyngeal 07/03/2022 4: 26 PM AGRICULTURAL CHEMIST 07/03/2022 6:41 PM AGRICULTURAL CHEMIST Narrative AILEEN - 07/03/2022 7:57 PM AGRICULTURAL CHEMIST Is the Patient experiencing symptoms consistent with COVID?->Yes Date of Symptom Onset->06/25/22 Reason for testing?->Symptomatic Known exposure to confirmed or suspected COVID-19 case?->No Is the patient experiencing any symptoms consistent with COVID (eg. Fever, cough, shortness of breath)?->Yes What is the reason for testing?->Symptoms of COVID-19 in low-risk group (Batched) Pricilla Olguin NP LAB MICROBIOLOGY [facility] Final Result AILEEN [address] [place] [address] documented in this encounter Visit Diagnoses Diagnosis Cough, unspecified type- Primary Positive self-administered antigen test for COVID-19 Cough, unspecified type Positive self-administered antigen test for COVID-19 documented in this encounter Additional Health Concerns Infection Onset Date Last Indicated Resolved Time COVID: Suspected 07/03/2022 07/03/2022 07/03/2022 7:57 PM AGRICULTURAL CHEMIST documented as of this encounter Care Teams Associate Creative Director Relationship Specialty Start Date End Date Servando Torre MD [address] [address] PCP - General Family Medicine 06/19/22 Mariela Denton MD [address] [place] [address] Referring Physician Gastroenterology 06/19/22 documented as of this encounter
--- OUTSIDE RECORDS SUMMARY | 2024-07-15 17:43 | XMS_ITS | Encounter Summary ---
Author Organization [facility] Address [address] [place] [address] Phone Care Team Providers Care Commercial Baking Teacher Name Role Phone Servando Torre MD Primary Care Provider [phone] Mariela Denton MD Unavailable [phone] Lexis Barroso OD Unavailable [phone]- [phone] Encounter Details Date Type Department Care Team (Late st Contact Info) Description 11/07/2022 Orders Only [facility] Gastroenterology [address] [facility] [address] 12th [place] [address] [place] [address] Coty Sorensen custodial current use of systemic steroids (Primary Dx); [...] on file Legal Sex Female 9:30 AM LAY OUT CARPENTER Gender Identity Female 04/05/2022 6:17 PM CDT Sexual Orientation Straight 04/05/2022 6: 17 PM CDT documented as of this encounter Plan of Treatment Not on file documented as of this encounter Visit Diagnoses Diagnosis 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
--- OUTSIDE RECORDS SUMMARY | 2024-07-15 17:43 | XMS_ITS | Encounter Summary ---
Author Organization [facility] Address [address] [place] [address] Phone Care Team Providers Care Professor Of Physical Education Name Role Phone Servando Torre MD Primary Care Provider [phone] Mariela Denton MD Unavailable [phone] Lexis Barroso OD Unavailable [phone] Encounter Details Date Type Department Care Team (Late st Contact Info) Description 10/10/2022 9:45 AM CDT Office Visit [facility] Gastroenterology [address] [facility] 12th [place] [address] [place] [address] Mariela Denton MD [address] [place] [address] Ulcerative colitis with complication, unspecified location (HCC) [...] on file Legal Sex Female 9:30 AM HELPER CHICKEN FARM Gender Identity Female 04/05/2022 6:17 PM CDT [...] scheduling. A referral will be placed for [facility] [address] [place] [address] documented in this encounter Progress Notes * [...] 10/10/2022 05:24 PM Mariela Denton MD, MPH financial aid director Division of Gastroenterology AG/lulu documented in this encounter Plan of Treatment Not on file documented as of this encounter Results * (ABNORMAL) Hemoglobin A1c (10/10/2022 11:14 AM CDT) HbA1c 6.7(H) 5.1 - 5.6 % [facility] Comment: HBA1C 5.1 - 5.6 = NORMAL HBA1C 5.7 - 6.4 = PREDIABETES HBA1C >=6.5 = PROVISIONAL DIAGNOSIS OF DIABETES Estimated Average Glucose 146 mg/dL [facility] Blood 10/10/2022 11:1 4 AM CDT 10/10/2022 [...] AM CDT 10/10/2022 12:04 PM CDT Narrative [facility] CORE [facility] - 10/10/2022 1:25 PM CDT Current interpretive data was last updated June 29, 2021. us Mariela Denton MD LAB BLOOD ORDERABLE S Final Result [facility] CORE [facility] [...] MD LAB BLOOD ORDERABLE S Final Result [facility] [...] documented as of this encounter Care Teams Professor Of Physical Education Relationship Specialty Start Date End Date Servando Torre MD [address] [facility] [address] [place] [address] PCP - General Family Medicine 06/19/22 Mariela Denton MD [address] [place] [address] Referring Physician Gastroenterology 06/19/22 Lexis Barroso OD [address] [place] [address] Sausage Tier 09/19/22 documented as of this encounter
--- OUTSIDE RECORDS SUMMARY | 2024-07-15 17:43 | XMS_ITS | Encounter Summary ---
Author Organization [facility] Address [address] [facility] [address] [place] [address] Care Team Providers Care Director Of Sales And Marketing Name Role Phone Servando Torre MD Primary Care Provider [phone] Mariela Denton MD Unavailable [phone] Lexis Barroso OD Unavailable [phone] Encounter Details Date Type Department Care Team (Late st Contact Info) Description 02/07/2023 10:45 AM CDT Lab [facility] Medical [facility] at [address] [address] Seizure (HCC) (Primary Dx) Social [...] on file Legal Sex Female 9:30 AM MARKETING ANALYTICS ANALYST Gender Identity Female 04/05/2022 6:17 PM CDT Sexual Orientation Straight 04/05/2022 6: 17 PM CDT documented as of this encounter Plan of Treatment Not on file documented as of this encounter Visit Diagnoses Diagnosis Seizure (HCC)- Primary Other convulsions documented in this encounter Care Teams Director Of Sales And Marketing Relationship Specialty Start Date End Date Servando Torre MD [address] [facility] [address] [place] [address] PCP - General Family Medicine 06/19/22 Mariela Denton MD [address] [place] [address] Referring Physician Gastroenterology 06/19/22 Lexis Barroso OD [address] [place] [address] Bluing Oven Tender 09/19/22 documented as of this encounter
--- OUTSIDE RECORDS SUMMARY | 2024-07-15 17:44 | XMS_ITS | Encounter Summary ---
Author Organization [facility] Address [address] [place] [address] Care Team Providers Care Slitter Scorer Cut Off Operator Name Role Phone Jared Abrams MD Primary Care Provider [phone] Encounter Details Date Type Department Care Team (Late st Contact Info) Description 05/30/2022 12:20 PM CDT Lab [facility] Advanced Medicine [facility] Advanced Medicine ([facility]) [address] [place] [address] Ulcerative colitis with complication, unspecified location (HCC); Encounter for long term care phlebotomist current azathioprine therapy; High risk medications (not anticoagulants) long-term use Social History Tobacco Use Types Packs/Day Years Used Date Smoking Tobacco: Never Comments Unknown Sex and Gender Information Value Date Recorded Sex Assigned at Not on file Legal Sex Female 9:30 AM SCALE TANK OPERATOR Gender Identity Female 04/05/2022 6:17 PM [...] with complication, unspecified location (HCC) Encounter for long-term current azathioprine therapy High risk medications (not [...] * (ABNORMAL) eGFR (05/30/2022 12:39 PM CDT) [facility] eGFR 72(L) 90 - 130 mL/min/1. 73 m2 [facility] Comment: Interpretive Data Reference Interval Normal [...] MD LAB BLOOD ORDERABLE S Final Result [facility] Department [place] [address] * Differential, auto (05/30/2022 12:39 PM CDT) Pathologist [facility] Neutrophil abs 6.4 1.7 - 6.5 K/cumm [facility] Imm gran abs 0.1 0.0 - 0.1 K/cumm [facility] Lymphocyte abs 2.2 0.8 - 3.3 K/cumm [facility] Monocyte abs 0.5 0.2 - 0.8 K/cumm [facility] Eosinophil abs 0.2 0.0 - 0.5 K/cumm [facility] Basophil abs 0.0 0.0 - 0.1 K/cumm [facility] Neutrophil pct 68.1 % [facility] Comment: Interpretive Data Percent cell count reference ranges are not reported, since discordance with absolute values may lead to misinterpretation of CBC data. Current Interpretive Data was last revised on 2017. Imm gran pct 0.5 % [facility] Comment: Interpretive Data Percent cell count reference ranges are not reported, since discordance with absolute values may lead to misinterpretation of CBC data. Current Interpretive Data was last revised on 2017. Lymphocyte pct 23.3 % [facility] Comment: Interpretive Data Percent cell count reference ranges are not reported, since discordance with absolute values may lead to misinterpretation of CBC data. Current Interpretive Data was last revised on 2017. Monocyte pct 5.8 % [facility] Comment: Interpretive Data Percent cell count reference ranges are not reported, since discordance with absolute values may lead to misinterpretation of CBC data. Current Interpretive Data was last revised on 2017. Eosinophil pct 1.9 % [facility] Comment: Interpretive Data Percent cell count reference ranges are not reported, since discordance with absolute values may lead to misinterpretation of CBC data. Current Interpretive Data was last revised on 2017. Basophil pct 0.4 % [facility] Comment: Interpretive Data Percent cell count reference ranges are not reported, since discordance with absolute values may lead to misinterpretation of CBC data. Current Interpretive Data was last revised on 2017. Blood 05/30/2022 12:3 9 PM CDT 05/30/2022 12:57 PM CDT us Mariela Denton MD LAB BLOOD ORDERABLE S Final Result [facility] Department [place] [address] * Thiopurine metabolites (05/30/2022 12:39 PM CDT) 6-TG, bld 293 235 - 450 [facility] Comment:Increased possibilit y of response; optimal dosing. 6-MMP, bld 2999 < or = 5700 [facility] Comment: Decreased risk of hepatotoxicity. ADDITIONAL INFORMATION Testing performed by Liquid Chromatography-Tandem Mass Spectrometry (LC-MS/MS) This test was developed and its performance characteristics determined by [facility] in a manner consistent with CLIA requirements. This test has not been cleared or approved by the U.S. Food and Drug Administration. Test Performed by: [facility] - [facility] [address] [place] [address] Reporter: Holden Rdeman M.D. Ph.D.; CLIA# [id number] Blood 05/30/2022 12:3 9 PM CDT 05/30/2022 1:03 PM CDT us Mariela Denton MD LAB BLOOD ORDERABLE S Final Result [facility] Department [place] [address] * (ABNORMAL) CBC with auto differential (05/30/2022 12:39 PM CDT) Pathologist [facility] WBC 9.3 3.8 - 9.9 K/cumm [facility] Hgb 13.1 11.9 - 15.5 g/dL [facility] Hct 42.4 35.6 - 45.5 % [facility] Plt 332 150 - 400 K/cumm [facility] MPV 9.1 9.1 - 12.3 fL [facility] RBC 4.65 3.90 - 5.20 M/cumm [facility] MCV 91.2 81.3 - 96.4 fL [facility] MCH 28.2 27.1 - 33.3 pg [facility] MCHC 30.9(L) 32.3 - 35.7 g/dL [facility] RDW CV 14.9 11.1 - 14.9 % [facility] RDW SD 49.2(H) 35.7 - 48.1 fL [facility] NRBC abs 0.00 0.00 - 0.01 K/cumm [facility] Blood 05/30/2022 12:3 9 PM CDT 05/30/2022 12:57 PM CDT us Mariela Denton MD LAB BLOOD ORDERABLE S Final Result [facility] Department [place] [address] * Comprehensive metabolic panel (05/30/2022 12:39 PM CDT) Sodium 141 135 - 145 mmol/L [facility] Potassium, pl 4.0 3.3 - 4.9 mmol/L [facility] Chloride 101 97 - 110 mmol/L [facility] CO2 30 22 - 32 mmol/L [facility] Anion gap 10 2 - 15 mmol/L [facility] BUN 11 8 - 25 mg/dL [facility] Creatinine 0.83 0.60 - 1.10 mg/dL [facility] Glucose 100 70 - 199 mg/dL [facility] Comment: Interpretive Data Fasting glucose [...] Calcium 10.1 8.5 - 10.3 mg/dL [facility] Bilirubin, total 0.4 0.1 - 1.2 mg/dL [facility] Protein, pl 7.4 6.5 - 8.5 g/dL [facility] Albumin 4.3 3.5 - 5.0 g/dL [facility] Alk phos 74 40 - 130 Units/L [facility] ALT 19 7 - 45 Units/L [facility] AST 28 10 - 45 Units/L [facility] Blood 05/30/2022 12:3 9 PM CDT 05/30/2022 12:57 PM CDT us Mariela Denton MD LAB BLOOD ORDERABLE S Final Result [facility] Department [place] [address] * CRP (acute phase) (05/30/2022 12:39 PM CDT) CRP 0.9 <=10.0 mg/L [facility] Blood 05/30/2022 12:3 9 PM CDT 05/30/2022 12:57 PM CDT us Mariela Denton MD LAB BLOOD ORDERABLE S Final Result [facility] Department [place] [address] * Erythrocyte sedimentation rate (05/30/2022 12:39 PM CDT) Erythrocyte sedimentation rate 18 1 - 30 mm/hr [facility] Blood 05/30/2022 12:3 9 PM CDT 05/30/2022 12:57 PM CDT us Mariela Denton MD LAB BLOOD ORDERABLE S Final Result [facility] Department [place] [address] * Ferritin (05/30/2022 12:39 PM CDT) Ferritin 75 13 - 150 ng/mL [facility] Blood 05/30/2022 12:3 9 PM CDT 05/30/2022 12:57 PM CDT us Mariela Denton MD LAB BLOOD ORDERABLE S Final Result [facility] [place] [address] * Iron profile w/ IBC (05/30/2022 12:39 PM CDT) Pathologist [facility] Iron 98 35 - 145 mcg/dL [facility] TIBC 280 250 - 400 mcg/dL [facility] Transferrin saturation 35 20 - 50 % [facility] Blood 05/30/2022 12:3 9 PM CDT 05/30/2022 12:57 PM CDT us Mariela Denton MD LAB BLOOD ORDERABLE S Final Result [facility] [place] [address] * (ABNORMAL) Vitamin B12 (05/30/2022 12:39 PM CDT) [facility] Vitamin B12 >2,000(H) 230 - 1,250 pg/mL [facility] Blood 05/30/2022 12:3 9 PM CDT 05/30/2022 12:57 PM CDT us Mariela Denton MD LAB BLOOD ORDERABLE S Final Result [facility] Department [place] [address] * (ABNORMAL) Vitamin D 25 hydroxy (05/30/2022 12:39 PM CDT) Vitamin D 25-OH 29(L) 30 - 80 ng/mL [facility] Blood 05/30/2022 12:3 9 PM CDT 05/30/2022 12:57 PM CDT us Mariela Denton MD LAB BLOOD ORDERABLE S Final Result [facility] Department [place] [address] documented in this encounter Visit Diagnoses Diagnosis Ulcerative colitis with complication, unspecified location (HCC) Encounter for long term care phlebotomist current azathioprine therapy High risk medications (not anticoagulants) long-term use Encounter for long-term (current) use of other medications documented in this encounter Care Teams Slitter Scorer Cut Off Operator Relationship Specialty Start Date End Date Jared Abrams MD [address] [place] [address] PCP - General Internal Medicine 05/30/22 06/18/22 documented as of this encounter
--- OUTSIDE RECORDS SUMMARY | 2024-07-15 17:44 | XMS_ITS | Encounter Summary ---
Author Organization [facility] Address [address] [place] [address] Phone Care Team Providers Care System Analyst Name Role Phone Jared Abrams MD Primary Care Provider [phone] Encounter Details Date Type Department Care Team (Late st Contact Info) Description 06/04/2022 Orders Only [facility] Gastroenterology [address] [facility] 12th [place] [address] [place] [id number] Janice Baez LPN Ulcerative colitis with complication, unspecified location (HCC) (Primary Dx) Social History Tobacco Use Types Packs/Day Years Used Date Smoking Tobacco: Never Comments Unknown Sex and Gender Information Value Date Recorded Sex Assigned at Not on file Legal Sex Female 9:30 AM ENGLISH LANGUAGE LEARNER TEACHER Gender Identity Female 04/05/2022 6:17 PM [...] Azathioprine refill sent in to pt's local [facility] as pt's dgtr reported that she was running low with her supply at home. ISH LANGUAGE LEARNER TEACHER documented in this encounter Plan of Treatment Not on file documented as of this encounter Visit Diagnoses Diagnosis Ulcerative colitis with complication, unspecified location (HCC)- Primary documented in this encounter Discontinued Medications Medication Sig Discontinue Reason Start Date End Da te azaTHIOprine (IMURAN) 100 mg tablet Take 100 mg by mouth daily Reorder 06/04/2022 documented as of this encounter Care Teams System Analyst Relationship Specialty Start Date End Date Jared Abrams MD [address] [place] [address] PCP - General Internal Medicine 05/30/22 06/18/22 documented as of this encounter
--- OUTSIDE RECORDS SUMMARY | 2024-07-15 17:44 | XMS_ITS | Encounter Summary ---
Author Organization [facility] Address [address] [place] [address] Phone Care Team Providers Care Ceo Na Name Role Phone Jared Abrams MD Primary Care Provider [phone] Encounter Details Date Type Department Care Team (Late st Contact Info) Description 05/30/2022 Orders Only [facility] Gastroenterology [address] [facility] 12th [place] [address] [place] [address] Coty Sorensen Social History Tobacco Use Types Packs/Day Years Used Date Smoking Tobacco: Never Comments Unknown Sex and Gender Information Value Date Recorded Sex Assigned at Not on file Legal 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
--- OUTSIDE RECORDS SUMMARY | 2024-07-15 17:44 | XMS_ITS | Encounter Summary ---
Author Organization [facility] Address [address] [place] [address] Phone Care Team Providers Care Hairspring Adjuster Name Role Phone Unavailable Primary Care Provider Unavailabl e Reason for Visit * Reason Onset Date Comments Lab Order - TPMT 05/07/2022 Encounter Details Date Type Department Care Team (Late st Contact Info) Description 05/07/2022 Documentation [facility] [address] [facility] 12th [place] [address] [place] [address] Coty Sorensen Lab Order - TPMT Social History Tobacco Use Types Packs/Day Years Used Date Smoking Tobacco: Never Comments Unknown Sex and Gender Information Value Date Recorded Sex Assigned at Not on file Legal Sex Female 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
--- OUTSIDE RECORDS SUMMARY | 2024-07-15 17:44 | XMS_ITS | Encounter Summary ---
Author Organization [facility] Address [address] [place] [address] Phone Care Team Providers Care Candy Cutter Hand Name Role Phone Unavailable Primary Care Provider Unavailabl e Reason for Visit * Reason Onset Date Comments New Patient Appointment 05/06/2022 Encounter Details Date Type Department Care Team (Late st Contact Info) Description 05/06/2022 Documentation [facility] Gastroenterology [address] [facility] 12th [place] [address] [place] [address] Coty Sorensen New Patient Appointment Social History Tobacco Use Types Packs/Day Years Used Date Smoking Tobacco: Never Comments Unknown Sex and Gender Information Value Date Recorded Sex Assigned at Not on file Legal Sex Female 9:30 AM ULTRASONIC CLEANER Gender Identity Female 04/05/2022 6:17 PM [...]
--- OUTSIDE RECORDS SUMMARY | 2024-07-15 17:44 | XMS_ITS | Encounter Summary ---
Author Organization [facility] Care Team Providers Care Chairman Emeritus Name Role Phone Unavailable Primary Care Provider Unavailabl e Encounter Details Date Type Department Care Team (Late st Contact Info) Description 10/05/2014 - 10/05/2014 11:59 PM CDT Hospital Encounter [facility] Rick Mcnulty MD [address] [facility] [address] [place] [address] Social History Tobacco Use Types Packs/Day Years Used Date Smoking Tobacco: Never Comments Unknown Sex and Gender Information Value Date Recorded Sex Assigned at Not on file Legal Sex Female 9:30 AM INFORMATION SECURITY RISK ANALYST Gender Identity Female 04/05/2022 6:17 PM [...] M.D. FINAL REPORT ACC# ??Date Time ??Exam [id number] Oct 05, 2014 17:02:00 [id number] [facility] Plain Film Reference [id number] Oct 05, 2014 17:02:00 [id number] [facility] Plain Film Reference EXAMINATION: ?Images For Reference Purposes Only IMPRESSION: ?These images have been uploaded for Reference purposes only. ??There will be no separate report generated by a [facility] Radiologist. Requested By: Dictated By: ?? VENITA FINK M.D. ??on Oct 05 2014 ??5:06P This document has been electronically signed by: VENITA FINK M.D. on Oct 05 2014 ??5:06P [id number] Procedure Note Provider, MD Silvestre - 11/22/2016 VENITA FINK M.D. FINAL REPORT ACC# Date Time Exam [id number] Oct 05, 2014 17:02:00 [id number] [facility] Plain Film Reference [id number] Oct 05, 2014 17:02:00 [id number] [facility] Plain Film Reference EXAMINATION: Images For Reference Purposes Only IMPRESSION: These images have been uploaded for Reference purposes only. There will be no separate report generated by a [facility] Radiologist. Requested By: Dictated By: VENITA FINK M.D. on Oct 05 2014 5:06P This document has been electronically signed by: VENITA FINK M.D. on Oct 05 2014 5:06P [id number] us Historical Provider MD GRAHAM XR PROCEDURES Final R esult * XR Interpretation Of Outside Films (10/05/2014 5:02 PM CDT) Anatomical Region Laterality Modality N/A Radiographic Keyanna ging 10/05/2014 5:02 PM CDT Narrative 10/05/2014 5:06 PM CDT VENITA FINK M.D. FINAL REPORT ACC# ??Date Time ??Exam [id number] Oct 05, 2014 17:02:00 [id number] [facility] Plain Film Reference [id number] Oct 05, 2014 17:02:00 [id number] [facility] Plain Film Reference EXAMINATION: ?Images For Reference Purposes Only IMPRESSION: ?These images have been uploaded for Reference purposes only. ??There will be no separate report generated by a [facility] Radiologist. Requested By: Dictated By: ?? VENITA FIKN M.D. ??on Oct 05 2014 ??5:06P This document has been electronically signed by: VENITA FINK M.D. on Oct 05 2014 ??5:06P [id number] Procedure Note Provider, Silvestre, - 11/22/2016 VENITA FINK M.D. FINAL REPORT ACC# Date Time Exam [id number] Oct 05, 2014 17:02:00 [id number] [facility] Plain Film Reference [id number] Oct 05, 2014 17:02:00 [id number] [facility] Plain Film Reference EXAMINATION: Images For Reference Purposes Only IMPRESSION: These images have been uploaded for Reference purposes only. There will be no separate report generated by a [facility] Radiologist. Requested By: Dictated By: VENITA FINK M.D. on Oct 05 2014 5:06P This document has been electronically signed by: VENITA FINK M.D. on Oct 05 2014 5:06P [id number] us Historical Provider IMG XR PROCEDURES Final R esult documented in this encounter Visit Diagnoses Not on filedocumented in this encounter
--- OUTSIDE RECORDS SUMMARY | 2024-07-15 17:44 | XMS_ITS | Encounter Summary ---
Author Organization [facility] Healthcare Address [address] [place] [address] Care Team Providers Care Neurophysiologist Name Role Phone Jared Abrams MD Primary Care Provider [phone] Encounter Details Date Type Department Care Team (Late st Contact Info) Description 05/30/2022 1:30 PM CDT Immunization [facility] [address] [address] Encounter for vaccination (Primary Dx) Social History Tobacco Use Types Packs/Day Years Used Date Smoking Tobacco: Never Comments Unknown Sex and Gender Information Value Date Recorded Sex Assigned at Not on file Legal Sex Female 9:30 AM OFFSET PRESS OPERATOR Gender Identity Female 04/05/2022 6:17 [...] 05/30/2022 documented in this encounter Care Teams Neurophysiologist Relationship Specialty Start Date End Date Jared Abrams MD [address] [place] [address] PCP - General Internal Medicine 05/30/22 06/18/22 documented as of this encounter
--- OUTSIDE RECORDS SUMMARY | 2024-07-15 17:44 | XMS_ITS | Encounter Summary ---
Author Organization [facility] Address [address] [place] [address] Phone Care Team Providers Care Mushroom Laborer Name Role Phone Jared Abrams MD Primary Care Provider [phone] Encounter Details Date Type Department Care Team (Late st Contact Info) Description 05/31/2022 Orders Only [facility] Gastroenterology [address] [facility] 12th [place] [address] [place] [address] Janice Baez LPN Low serum vitamin D (Primary Dx) Social History Tobacco Use Types Packs/Day Years Used Date Smoking Tobacco: Never Comments Unknown Sex and Gender Information Value Date Recorded Sex Assigned at Not on file Legal Sex Female 9:30 AM CASHIERS BUSSERS FOOD RUNNERS Gender Identity Female 04/05/2022 6:17 PM CDT [...] Rx sent in to pt's local pharmacy. [employer] portal msg sent to pt. documented in this encounter Plan of Treatment Not on file documented as of this encounter Visit Diagnoses Diagnosis Low serum vitamin D- Primary documented in this encounter Care Teams Mushroom Laborer Relationship Specialty Start Date End Date Jared Abrams MD [address] [place] [address] PCP - General Internal Medicine 05/30/22 06/18/22 documented as of this encounter
--- OUTSIDE RECORDS SUMMARY | 2024-07-15 17:44 | XMS_ITS | Encounter Summary ---
Author Organization [facility] Address [address] [place] [address] Phone Care Team Providers Care Boiler Testing Technician Name Role Phone Unavailable Primary Care Provider Unavailabl e Reason for Visit * Reason Onset Date Comments Normal TPMT from 05/14/2022 05/20/2022 Encounter Details Date Type Department Care Team (Late st Contact Info) Description 05/20/2022 Documentation [facility] Gastroenterology [address] [facility] 12th [place] [address] [place] [address] Janice Baez LPN Normal TPMT from 05/14/2022 Social History Tobacco Use Types Packs/Day Years Used Date Smoking Tobacco: Never Comments Unknown Sex and Gender Information Value Date Recorded Sex Assigned at Not on file Legal Sex Female 9:30 AM NANNY CAREGIVER Gender Identity Female 04/05/2022 6:17 PM CDT [...]
--- OUTSIDE RECORDS SUMMARY | 2024-07-15 17:44 | XMS_ITS | Encounter Summary ---
Author Organization [facility] Facility Care Team Providers Care Radiology Teacher Name Role Phone Unavailable Primary Care Provider Unavailabl e Encounter Details Date Type Department Care Team (Late st Contact Info) Description 07/08/2012 - 07/08/2012 11:59 PM FORGE OPERATOR HELPER Hospital [facility] MD [address] [facility] [address] [place] [address] Stress fracture of other bone; Nonunion of fracture Social History Tobacco Use Types Packs/Day Years Used Date Smoking Tobacco: Never Assessed Comments Unknown Sex and Gender Information Value Date Recorded Sex Assigned at Not on file Legal Sex Female 9:30 AM FORGE OPERATOR HELPER Gender Identity Female 04/05/2022 6:17 PM CDT Sexual Orientation Straight 04/05/2022 6: 17 PM CDT documented as of this encounter Plan of Treatment Not on file documented as of this encounter Visit Diagnoses Diagnosis 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
--- OUTSIDE RECORDS SUMMARY | 2024-07-15 17:44 | XMS_ITS | Encounter Summary ---
Author Organization [facility] [employer] [facility] Address [address] [place] [address] Phone Care Team Providers Care Hand Bulldozer Name Role Phone Unavailable Primary Care Provider Unavailabl e Encounter Details Date Type Department Care Team (Late st Contact Info) Description 05/14/2022 Orders Only [facility] Scanning, Provider Social History Tobacco Use Types Packs/Day Years Used Date Smoking Tobacco: Never Comments Unknown Sex and Gender Information Value Date Recorded Sex Assigned at Not on file Legal Sex Female 9:30 AM LEAD MINER BLASTING Gender Identity Female 04/05/2022 6:17 PM CDT [...]
--- OUTSIDE RECORDS SUMMARY | 2024-07-15 17:44 | XMS_ITS | Encounter Summary ---
Author Organization [facility] Address [address] [place] [address] Phone Care Team Providers Care Foreign Food Cook Specialty Name Role Phone Jared Abrams MD Primary Care Provider Servando Torre MD Primary Care Provider [phone] Mariela Denton MD Unavailable [phone] Reason for Visit * Reason Onset Date Comments Submitting for Entyvio 06/03/2022 Encounter Details Date Type Department Care Team (Late st Contact Info) Description 06/03/2022 Telephone [facility] Gastroenterology [address] [facility] 12th [place] [address] [place] [address] Janice Baez LPN Submitting for [...] on file Legal Sex Female 9:30 AM PATROL SERGEANT Gender Identity Female 04/05/2022 6:17 PM CDT Sexual Orientation Straight 04/05/2022 6: 17 PM CDT documented as of this encounter Miscellaneous Notes * Telephone Encounter - Janice Baez LPN - 06/18/2022 12:03 PM CST 06/18/2022: Per note from Jaqueline BORREGO on 06/10/2022, pt requested that infusion therapy (new start Entyvio) be arranged for [facility] in [place], [place]. Approval was obtained by pre-cert team for therapy. Infusion auth, infusion order, IOV note, and demographics all faxed to infusion center at . Jaqueline BORREGO cc'd so that she is aware. Asked infusion center to get patient scheduled to start therapy SHIRA. Follow up [employer] portal msg sent to pt notifying her of approval. Advisedpatient to reach out to infusion center next week if she hasn't heard from them by then re: scheduling. Pt provided with phone number for infusion center. -------Fax Transmission Report------- To: Recipient at [phone] Subject: Re: Joseph Allen - Entyvio Referral [Secure] Result: The transmission was successful. Explanation: All Pages Ok Pages Sent: 16 Connect Time: 11 minutes, 54 seconds Transmit Time: 06/18/2022 12:05 Transfer Rate: 9600 Status Code: 0000 Retry Count: 0 Job Id: [id number] Unique Id: [id number] Fax Line: 16 Fax Fruit Loader Machine Operator: [id number] 07/03/2022: Pt is scheduled to begin Entyvio therapy tomorrow 07/04/2022. OL SERGEANT OL SERGEANT OL SERGEANT * Telephone Encounter - Jnaice Baez LPN - 06/05/2022 9:55 AM CST Have not received return call from Lisa regarding site of care option ([facility]) so we have not been able to proceed with submitting for Entyvio. Pt's dgtr Aby (proxy) has been communicating with our office via pt's [employer] portal. Msg sent to Lisa/Aby this morning to discuss this site of care option and whether this location was OK for Entyvio therapy. Waiting to hear back from patient/dgtr to figure out whether we can proceed with this referral. OL SERGEANT * Telephone Encounter - Janice Baez LPN - 06/03/2022 2:11 PM CST Pt established care with Dr. Denton on 05/30/2022 at which time starting Entyvio therapy for UC was discussed. Pt lives in [place], [place], I was able to locate a facility in [facility] ([facility]) which does have an infusion center. Call placed to infusion center this afternoon to find out about their referral process and whether they administer Entyvio at their center. Spoke with staff member in surgery department (which acts as their infusion center), confirmed that they doadminister Entyvio at their center, do accept [facility] order and can have their medical device co-signif the patient does not have a PCP with privileges at their hospital, they will accept our [facility] order (no addt'l order forms), we are required to obtain auth, and they do draw labs. The staff member that I spoke with was unable to provide me with their Tax ID and NPI numbers and transferred me to Vannessa (highway administrative engineer) who likely would have this information. Unable [...] her convenience. Referral canotherwise be faxed to . Direct extension to surgery department P: ext [phone]. Per review of chart, pt has Medicare [...] facility which can administer this therapy in [place], [place] and providing facility name - informed pt that I wanted to touch base with her to verify whether this facility would work for her. Also explained to patient that I was hoping to verify her insurance coverage. Left my direct office number on pt's home voicemail and asked her to give me a call back at her convenience. OL SERGEANT documented in this encounter Plan of Treatment Not on file documented as of this encounter Visit Diagnoses Not on filedocumented in this encounter Care Teams Foreign Food Cook Specialty Relationship Specialty Start Date End Date Jared Abrams MD [facility] [place] [address] PCP - General Internal Medicine 05/30/22 06/18/22 Servando Torre MD [facility] [address] [place] [address] PCP - General Family Medicine 06/19/22 Mariela Denton MD [address] [place] [address] Referring Physician Gastroenterology 06/19/22 documented as of this encounter
--- OUTSIDE RECORDS SUMMARY | 2024-07-15 17:44 | XMS_ITS | Encounter Summary ---
Author Organization [facility] Facility Care Team Providers Care Neurosurgery Research Director Name Role Phone Unavailable Primary Care Provider Unavailabl e Encounter Details Date Type Department Care Team (Latest Contact Info) Description 02/11/2011 3:14 PM CDT - 02/11/2011 4:00 PM CDT Hospital [facility] Rick Castañeda MD [address] [facility] [address] [place] [address] Stress fracture of shaft of femur; Essential [...] file Legal Sex Female 9:30 AM MOLD STAMPER Gender Identity Female 04/05/2022 6:17 PM CDT [...]
--- OUTSIDE RECORDS SUMMARY | 2024-07-15 17:44 | XMS_ITS | Encounter Summary ---
Author Organization [facility] Address [address] [place] [address] Phone Care Team Providers Care Auto Garage Attendant Name Role Phone Jared Abrams MD Primary Care Provider [phone] Encounter Details Date Type Department Care Team (Late st Contact Info) Description 05/30/2022 10:30 AM CDT Office Visit [facility] Gastroenterology [address] [facility] 12th [place] [address] [place] [address] Mariela Denton MD [address] [place] [address] Ulcerative colitis with complication, unspecified location (HCC) (Primary Dx); Encounter for medical terminologist current azathioprine therapy; High risk medications (not anticoagulants) long-term use Social History Tobacco Use Types Packs/Day Years Used Date Smoking Tobacco: Never Tobacco Cessation:Counseling Given: Not Answered Comments Unknown Sex and Gender Information Value Date Recorded Sex Assigned at Not on file Legal Sex Female 9:30 AM PAINT MIXER MACHINE Gender Identity Female 04/05/2022 6:17 PM CDT [...] today Onboarding labs ordered to complete at [facility] today We will submit for Entio approval. [...] OF MEDICINE DIVISION OF GASTROENTEROLOGY Clinic Address: [address] [place] [address], [address], [place] [address] Mailing Address: [address] [place] [address] [address] Inflammatory Bowel Disease Initial Office Visit Note [...] 25-OH 29(L) 30 - 80 ng/mL [facility] Blood 05/30/2022 12:3 9 PM CDT 05/30/2022 12:57 PM CDT us Mariela Denton MD LAB BLOOD ORDERABLE S Final Result [facility] [place] [address] * (ABNORMAL) Vitamin B12 (05/30/2022 12:39 PM CDT) Vitamin B12 >2,000(H) 230 - 1,250 pg/mL [facility] Blood 05/30/2022 12:3 9 PM CDT 05/30/2022 12:57 PM CDT us Mariela Denton MD LAB BLOOD ORDERABLE S Final Result Performing Organization Address City/[facility]/ZIP Co de Phone Number [facility] [place] [address] * Iron profile w/ IBC (05/30/2022 12:39 PM CDT) Iron 98 35 - 145 mcg/dL [facility] TIBC 280 250 - 400 mcg/dL [facility] Transferrin saturation 35 20 - 50 % [facility] Blood 05/30/2022 12:3 9 PM CDT 05/30/2022 12:57 PM CDT us Mariela Denton MD LAB [place]LOOD [place] [address] * Ferritin (05/30/2022 12:39 PM CDT) Ferritin 75 13 - 150 ng/mL [facility] Blood 05/30/2022 12:3 9 PM CDT 05/30/2022 12:57 PM CDT us Mariela Denton MD LAB BLOOD ORDERABLE S Final Result Performing Organization Address City/[facility] Co de Phone Number [facility] [place] [address] * Erythrocyte sedimentation rate (05/30/2022 12:39 PM CDT) [facility] Erythrocyte sedimentation rate 18 1 - 30 mm/hr [facility] Blood 05/30/2022 12:3 9 PM CDT 05/30/2022 12:57 PM CDT us Mariela Denton MD LAB BLOOD ORDERABLE S Final Result Performing Organization Address [facility] Co de Phone Number [facility] Department [place] [address] * CRP (acute phase) (05/30/2022 12:39 PM CDT) [facility] CRP 0.9 <=10.0 mg/L [facility] Blood 05/30/2022 12:3 9 PM CDT 05/30/2022 12:57 PM CDT us Mariela Denton MD LAB BLOOD ORDERABLE S Final Result Performing Organization Address City/[facility] Co de Phone Number [facility] [place] [address] * Comprehensive metabolic panel (05/30/2022 12:39 PM CDT) [facility] Sodium 141 135 - 145 mmol/L [facility] Potassium, pl 4.0 3.3 - 4.9 mmol/L [facility] Chloride 101 97 - 110 mmol/L [facility] CO2 30 22 - 32 mmol/L [facility] Anion gap 10 2 - 15 mmol/L [facility] BUN 11 8 - 25 mg/dL [facility] Creatinine 0.83 0.60 - 1.10 mg/dL [facility] Glucose 100 70 - 199 mg/dL [facility] Comment: Interpretive Data Fasting glucose >/= 126 [...] 2017. Calcium 10.1 8.5 - 10.3 mg/dL [facility] Bilirubin, total 0.4 0.1 - 1.2 mg/dL [facility] Protein, pl 7.4 6.5 - 8.5 g/dL [facility] Albumin 4.3 3.5 - 5.0 g/dL [facility] Alk phos 74 40 - 130 Units/L [facility] ALT 19 7 - 45 Units/L [facility] AST 28 10 - 45 Units/L [facility] Blood 05/30/2022 12:3 9 PM CDT 05/30/2022 12:57 PM CDT us Mariela Denton MD LAB BLOOD ORDERABLE S Final Result [facility] Department [place] [address] * (ABNORMAL) CBC with auto differential (05/30/2022 12:39 PM CDT) WBC 9.3 3.8 - 9.9 K/cumm [facility] Hgb 13.1 11.9 - 15.5 g/dL [facility] Hct 42.4 35.6 - 45.5 % [facility] Plt 332 150 - 400 K/cumm [facility] MPV 9.1 9.1 - 12.3 fL [facility] RBC 4.65 3.90 - 5.20 M/cumm [facility] MCV 91.2 81.3 - 96.4 fL [facility] MCH 28.2 27.1 - 33.3 pg [facility] MCHC 30.9(L) 32.3 - 35.7 g/dL [facility] RDW CV 14.9 11.1 - 14.9 % [facility] RDW SD 49.2(H) 35.7 - 48.1 fL [facility] NRBC abs 0.00 0.00 - 0.01 K/cumm [facility] Blood 05/30/2022 12:3 9 PM CDT 05/30/2022 12:57 PM CDT Mariela Denton MD LAB BLOOD ORDERABLE S Final Result [facility] Department [place] [address] * Thiopurine metabolites (05/30/2022 12:39 PM CDT) 6-TG, bld 293 235 - 450 [facility] Comment:Increased possibilit y of response; optimal dosing. 6-MMP, bld 2999 < or = 5700 [facility] Comment: Decreased risk of hepatotoxicity. ADDITIONAL INFORMATION Testing performed by Liquid Chromatography-Tandem Mass Spectrometry (LC-MS/MS) This test was developed and its performance characteristics determined by [facility] in a manner consistent with CLIA requirements. This test has not been cleared or approved by the U.S. Food and Drug Administration. Test Performed by: [facility] [address] [place] [address] Pharmacy General Manager: Holden Redman M.D. Ph.D.; CLIA# [id number] Blood 05/30/2022 12:3 9 PM CDT 05/30/2022 1:03 PM CDT us Mariela Denton MD LAB BLOOD ORDERABLE S Final Result [facility] [place] [address] documented in this encounter Visit Diagnoses Diagnosis Ulcerative colitis with complication, unspecified location (HCC)- Primary Encounter for care home current azathioprine therapy High risk medications (not [...] 07/02/2022 added in this encounter Care Teams Auto Garage Attendant Relationship Specialty Start Date End Date Jared Abrams MD [address] [place] [address] PCP - General Internal Medicine 05/30/22 06/18/22 documented as of this encounter
--- OUTSIDE RECORDS SUMMARY | 2024-07-15 17:44 | XMS_ITS | Encounter Summary ---
Author Organization [facility] Address [address] [place] [address] Phone Care Team Providers Care Other Wood Processing Machine Operator Name Role Phone Jared Abrams MD Primary Care Provider [phone] Encounter Details Date Type Department Care Team (Late st Contact Info) Description 06/10/2022 Orders Only [facility] Gastroenterology [address] [facility] 12th [place] [address] [place] [address] Lexis Renteria, RN Ulcerative colitis with complication, [...] file Legal Sex Female 9:30 AM HEALTH CARE COORDINATOR Gender Identity Female 04/05/2022 6:17 PM CDT Sexual Orientation Straight 04/05/2022 6: 17 PM CDT documented as of this encounter Progress Notes * Lexis Renteria RN - 06/10/2022 2:01 PM CST Patient would prefer to receive her Entyvio infusions at [facility] in [place]. [facility] therapy planentered (under procedures tab) and routed to pre-cert so that they can obtain the auth. Patient informed and set a reminder to f/u TH CARE COORDINATOR * Marga Pradhan CPhT - 06/10/2022 2:01 PM CST SPECIALTY DRUG INFUSION AUTHORIZATION Patient: Lisa Allen : 1945 Ordering Physician: WILLIAM SHORT NPI #: [id number] DRUG NAME: ENTYVIO DOSE/FREQUENCY: 300MG 0,2,6WEEKS Q 8 WEEKS CPT/ADMIN CODE(S): J3380, 44677, 25545 DX CODE(S): K51.919 LOCATION[facility] Primary Insurance: MEDICARE ID # [id number] Group # Ins Phone # E-VERIFIED AUTH [...] Insurance: [facility] SUPP PLAN ID # [id number] Group # [id number] Ins AUTH #: NOT REQ Effective Date: [...] PRE-D FAX #: DATE SUBMITTED: PRE-D OUTCOME: TH CARE COORDINATOR documented in this encounter Plan of Treatment Not on file documented as of this encounter Visit Diagnoses Diagnosis Ulcerative colitis with complication, unspecified location (HCC)- Primary documented in this encounter Orders Procedures Count Last Ordered Date First Orde red Date ONCBCN OUTPATIENT FACILITY ORDERS 1 022 documented in this encounter Care Teams Other Wood Processing Machine Operator Relationship Specialty Start Date End Date Jared Abrams MD [address] [place] [address] PCP - General Internal Medicine 05/30/22 06/18/22 documented as of this encounter
--- OUTSIDE RECORDS SUMMARY | 2024-07-15 17:44 | XMS_ITS | Encounter Summary ---
Author Organization [facility] Facility Care Team Providers Care Hairspring Inspector Name Role Phone Unavailable Primary Care Provider Unavailabl e Encounter Details Date Type Department Care Team (Late st Contact Info) Description 10/04/2013 - 10/04/2013 11:59 PM CDT Hospital Encounter [facility] Rick Mcnulty MD [address] [facility] [address] [place] [address] Stress fracture of other bone; Other orthopedic aftercare; Localized osteoarthrosis, lower leg Social History Tobacco Use Types Packs/Day Years Used Date Smoking Tobacco: Never Comments Unknown Sex and Gender Information Value Date Recorded Sex Assigned at Not on file Legal Sex Female 9:30 AM COAL MILL OPERATOR Gender Identity Female 04/05/2022 6:17 PM [...] agrees with it. ACC# ??Date Time ??Exam [id number] Oct 04, 2013 15:15:00 [id number] Femur 2 views L EXAMINATION: ?Left femur [...] agrees with it. ACC# Date Time Exam [id number] Oct 04, 2013 15:15:00 [id number] Femur 2 views L EXAMINATION: Left femur [...]
--- OUTSIDE RECORDS SUMMARY | 2024-07-15 17:44 | XMS_ITS | Encounter Summary ---
Author Organization [facility] Facility Care Team Providers Care Operations Examiner Name Role Phone Unavailable Primary Care Provider Unavailabl e Encounter Details Date Type Department Care Team (Late st Contact Info) Description 04/22/2011 - 04/22/2011 11:59 PM CDT Hospital [facility] Christ[facility] MD [address] [facility] [address] [place] [address] Aftercare following joint replacement; Aftercare for healing traumatic fracture of upper leg Social History Tobacco Use Types Packs/Day Years Used Date Smoking Tobacco: Never Assessed Comments Unknown Sex and Gender Information Value Date Recorded Sex Assigned at Not on file Legal Sex Female 9:30 AM SERGEANT MISSILE CREWMAN Gender Identity Female 04/05/2022 6:17 PM CDT Sexual Orientation Straight 04/05/2022 6: 17 PM CDT documented as of this encounter Plan of Treatment Not on file documented as of this encounter Visit Diagnoses Diagnosis Aftercare following joint replacement Aftercare for healing traumatic fracture of upper leg documented in this encounter
--- OUTSIDE RECORDS SUMMARY | 2024-07-15 17:44 | XMS_ITS | Encounter Summary ---
Author Organization [facility] Facility Care Team Providers Care Tanner Rotary Drum Continuous Process Name Role Phone Unavailable Primary Care Provider Unavailabl e Encounter Details Date Type Department Care Team (Late st Contact Info) Description 07/17/2011 - 07/17/2011 11:59 PM ACCOUNT EXECUTIVE AGRIBUSINESS Hospital [facility] See MD [address] [facility] [address] [place] [address] Pain in joint, pelvic region and thigh; History of hip joint replacement by other means; Nonunion of fracture; Localized osteoarthrosis, lower leg; Loose body in knee Social History Tobacco Use Types Packs/Day Years Used Date Smoking Tobacco: Never Assessed Comments Unknown Sex and Gender Information Value Date Recorded Sex Assigned at Not on file Legal Sex Female 9:30 AM ACCOUNT EXECUTIVE AGRIBUSINESS Gender Identity Female 04/05/2022 6:17 PM CDT [...]
--- OUTSIDE RECORDS SUMMARY | 2024-07-15 19:44 | XMS_ITS | Encounter Summary ---
Author Organization [facility] Address [address] [facility] [place] [address] [place] [address] Care Team Providers Care House Mother Name Role Phone Servando Torre MD Primary Care Provider [phone] Reason for Visit * Treatment/Therapy Plan Authorization (Routine) - Authorized Specialty Diagnoses / Procedures Referred By Angel braswell Referred To Contact Diagnoses Chronic ulcerative colitis, unspecified complication ([facility]/HCC HHS/HCC) Abnormal liver function tests Procedures VEDOLIZUMAB, INJECTION [facility] [address] [place] [address] Phone: tel: [facility] [address] [place] [address] Phone: tel: Referral ID Status Reason Start Date Expiration Date Visits Requested Visits Authorized [id number] Authorized Medication 05/01/2023 07/27/2024 99 99 Encounter Details Date Type Department Care Team (Latest Contact Info) Description 04/02/2024 1:53 PM CDT - 04/02/2024 3:07 PM CDT Hospital Encounter [facility] [address] [place] [address] Josué Cook MD [address] [facility] 8 [place] [address] Discharge Disposition: Home or Self Care (Routine [...] st Contact Info) Description 08/03/2024 2:00 PM BARK FITTER Appointment [address] [address] Josué Cook MD [address] [facility] 8 [place] [address] documented as of this encounter Goals Goal [...] <0.29 <0.29 mg/dL 04/02/2024 7:48 PM CDT [facility] 04/02/2024 1:56 PM CDT Josué Cook MD LABORATORY Final Result [facility] [address] [place] [address], [place] [phone] * (ABNORMAL) CBC W/DIFF AUTOMATED (04/02/2024 1:56 PM CDT) Pathologist [facility] WBC 10.39 4.4 - 11.0 x10'3/uL 04/02/2024 2:25 PM CDT [facility] RBC 4.82 4.50 - 5.10 x10'6/uL 04/02/2024 2:25 PM CDT [facility] HGB 14.4 12.3 - 15.3 G/DL 04/02/2024 2:25 PM CDT [facility] HCT 43.8 35.9 - 44.6 % 04/02/2024 2:25 PM CDT [facility] MCV 90.9 80.0 - 96.0 FL 04/02/2024 2:25 PM CDT [facility] MCH 29.9 25.3 - 30.9 PG 04/02/2024 2:25 PM CDT [facility] MCHC 32.9 31.0 - 34.1 G/DL 04/02/2024 2:25 PM CDT [facility] RDW 12.8 12.4 - 15.1 % 04/02/2024 2:25 PM CDT [facility] PLT 268 151 - 353 x10'3/uL 04/02/2024 2:25 PM CDT [facility] MPV 9.3(L) 9.6 - 12.0 FL 04/02/2024 2:25 PM CDT [facility] RBC MORPHOLOGY NORMAL 04/02/2024 2:25 PM CDT [facility] PLT MORPH. NORMAL 04/02/2024 2:25 PM CDT [facility] WBC MORPHOLOGY NORMAL 04/02/2024 2:25 PM CDT [facility] LYMPHOCYTES % 17.7 15.8 - 45.0 % 04/02/2024 2:25 PM T [facility] NEUTROPHILS % 70.2 42.1 - 71.9 % 04/02/2024 2:25 PM CDT [facility] MONOCYTES % 8.2 5.7 - 12.5 % 04/02/2024 2:25 PM CDT [facility] EOSINOPHILS 2.9 0.0 - 5.6 % 04/02/2024 2:25 PM CDT [facility] BASOPHILS 0.6 0.0 - 1.3 % 04/02/2024 2:25 PM CDT [facility] ABS. NEUTROPHILS 7.30(H) 1.40 - 6.00 x10'3/uL 04/02/2024 2:25 PM CDT [facility] IMMATURE GRANS % 0.4 0.0 - 0.5 % 04/02/2024 2:25 PM CDT [facility] ABS. LYMPHOCYTES 1.84 0.80 - 4.70 x10'3/uL 04/02/2024 2:25 PM CDT [facility] 04/02/2024 1:56 PM CDT us Josué Cook MD LABORATORY Final Result [facility] [address] [place] [address], * (ABNORMAL) COMPREHENSIVE METABOLIC PANEL (04/02/2024 1:56 PM CDT) GLUCOSE 164(H) 70 - 99 MG/DL 04/02/2024 2:42 PM CDT [facility] BUN 15 7 - 18 MG/DL 04/02/2024 2:42 PM CDT [facility] CREATININE S/P/B 1.32(H) 0.55 - 1.02 MG/DL 04/02/2024 2:42 PM CDT [facility] SODIUM S/P/B 140 136 - 145 MMOL/L 04/02/2024 2:42 PM CDT [facility] POTASSIUM S/P/B 4.0 3.5 - 5.1 MMOL/L 04/02/2024 2:42 PM CDT [facility] CHLORIDE S/P/B 102 100 - 108 MMOL/L 04/02/2024 2:42 PM CDT [facility] CO2 28.9 21 - 32 MMOL/L 04/02/2024 2:42 PM CDT [facility] CALCIUM S/P/B 9.6 8.5 - 10.1 MG/DL 04/02/2024 2:42 PM [facility] BILIRUBIN TOTAL S/P/B 0.4 0.2 - 1.2 MG/DL 04/02/2024 2:42 PM [facility] TOTAL PROTEIN S/P/B 7.1 6.4 - 8.2 G/DL 04/02/2024 2:42 PM [facility] ALBUMIN S/P/B 3.5 3.4 - 5.0 G/DL 04/02/2024 2:42 PM [facility] AST 23 15 - 37 U/L 04/02/2024 2:42 PM [facility] ALT 20 14 - 55 U/L 04/02/2024 2:42 PM [facility] ALKALINE PHOSPHATASE S/P/B 113 50 - 136 U/L 04/02/2024 2:42 PM [facility] ANION GAP 9.1 5 - 15 MMOL/L 04/02/2024 2:42 PM [facility] BUN CREATININE RATIO 11.4 6 - 26 04/02/2024 2:42 PM [facility] A/G RATIO 1.0 1.0 - 2.0 RATIO 04/02/2024 2:42 PM [facility] GFR ESTIMATE 41(L) >90 ML/MIN/1.7 3 M2 04/02/2024 2:42 PM [facility] Comment: NOTE: eGFR [...] Anas K Gremida MD LABORATORY Final Result [facility] [address] [place] [address], [place] [phone] documented in this encounter Visit Diagnoses Diagnosis [...] Total Score: 0 07/06/20 21 4:06 PM BARK FITTER documented as of this encounter Care Teams House Mother Relationship Specialty Start Date End Date Servando Torre MD [address] [place] [address] [address] [place] [address] PCP - General FAMILY PRACTICE 07/17/22 documented as of this encounter
--- OUTSIDE RECORDS SUMMARY | 2024-07-15 19:44 | XMS_ITS | Encounter Summary ---
Author Organization [facility] Address [address] [place] [address] [place] [address] Care Team Providers Care Vending Enterprises Supervisor Name Role Phone Servando Torre MD Primary Care Provider [phone] Encounter Details Date Type Department Care Team [...] st Contact Info) Description 08/03/2024 2:00 PM BROWN STOCK WASHER Appointment [facility] [id number] [place] [address] Josué Cook MD [address] [address] documented as of this encounter Goals Goal Patient Goal Type Associated Problems Recent Progress Patient-Stated? Author HOME TO [facility] Vannessa Light RN documented as of this encounter Visit Diagnoses Not on filedocumented in this encounter Additional Health Concerns Assessment Noted Time PHQ-9 Depression Total Score: 0 07/06/20 21 4:06 PM BROWN STOCK WASHER documented as of this encounter Care Teams [employer] Supervisor Relationship Specialty Start Date End Date Servando Torre MD [address] [place] [address] [address] [place] [address] PCP - General FAMILY PRACTICE 07/17/22 documented as of this encounter
--- OUTSIDE RECORDS SUMMARY | 2024-07-15 19:44 | XMS_ITS | Encounter Summary ---
Author Organization [facility] Address [address] [facility] [place] [address] [place] [address] Care Team Providers Care Personal Computer Network Engineer Name Role Phone Servando Torre MD [...] st Contact Info) Description 08/03/2024 2:00 PM TUB PULLER Appointment [facility] [id number] [place] [address] Josué Cook MD [address] [address] documented as of this encounter Goals Goal Patient Goal Type Associated Problems Recent Progress Patient-Stated? Author HOME TO [facility] Vannessa Light RN documented as of this encounter Visit Diagnoses Not on filedocumented in this encounter Additional Health Concerns Assessment Noted Time PHQ-9 Depression Total Score: 0 07/06/20 21 4:06 PM TUB PULLER documented as of this encounter Care Teams Personal Computer Network Engineer Relationship Specialty Start Date End Date Servando Torre MD [address] [place] [address] [address] [place] [address] PCP - General FAMILY PRACTICE 07/17/22 documented as of this encounter
--- OUTSIDE RECORDS SUMMARY | 2024-07-15 19:44 | XMS_ITS | Encounter Summary ---
Author Organization [facility] Address [address] [facility] [place] [address] [place] [address] Care Team Providers Care Horse Breaker Name Role Phone Servando Torre MD Primary [...] Info) Description 08/03/2024 2:00 PM PEDIATRIC PHYSICAL THERAPIST Appointment [facility] [id number] [place] [address] Josué Cook MD [address] [address] documented as of this encounter Goals Goal Patient Goal Type Associated Problems Recent Progress Patient-Stated? Author HOME TO [facility] Vannessa Light RN documented as of this encounter Visit Diagnoses Not on filedocumented in this encounter Additional Health Concerns Assessment Noted Time PHQ-9 Depression Total Score: 0 07/06/20 21 4:06 PM PEDIATRIC PHYSICAL THERAPIST documented as of this encounter Care Teams Horse Breaker Relationship Specialty Start Date End Date Servando Torre MD [address] [place] [address] [address] [place] [address] PCP - General FAMILY PRACTICE 07/17/22 documented as of this encounter
--- OUTSIDE RECORDS SUMMARY | 2024-07-15 19:44 | XMS_ITS | Encounter Summary ---
Author Organization [facility] Address [address] [facility] [place] [address] [place] [address] Care Team Providers Care Salesperson Surgical Appliances Name Role Phone Servando Torre MD Primary Care Provider [phone] Reason for Visit * Treatment/Therapy Plan Authorization (Routine) - Authorized Specialty Diagnoses / Procedures Referred By Angel braswell Referred To Contact Diagnoses Chronic ulcerative colitis, unspecified complication ([facility]/HCC HHS/HCC) Abnormal liver function tests Procedures VEDOLIZUMAB, INJECTION [facility] [address] [place] [address] Phone: tel: [facility] [address] [place] [address] Phone: tel: Referral ID Status Reason Start Date Expiration Date Visits Requested Visits Authorized [id number] Authorized Medication 05/01/2023 07/27/2024 99 99 Encounter Details Date Type Department Care Team (Latest Contact Info) Description 02/05/2024 1:49 PM CDT - 02/05/2024 3:15 PM CDT Hospital Encounter [facility] [address] [place] [address] Josué Cook MD [address] [facility] 8 [place] [address] Discharge Disposition: Home or Self Care (Routine [...] st Contact Info) Description 08/03/2024 2:00 PM HOUSEKEEPING COORDINATOR Appointment [facility] [address] [place] [address] Josué Cook MD [address] [facility] 8 [place] [address] documented as of this encounter Goals Goal Patient Goal Type Associated Problems Recent Progress Patient-Stated? Author HOME TO [facility] Vannessa Light RN documented as [...] <0.29 <0.29 mg/dL 02/05/2024 7:13 PM CDT [facility] 02/05/2024 2:10 PM CDT Josué Cook MD LABORATORY Final Result [facility] 3 [place] [address], [place] [phone] * (ABNORMAL) CBC W/DIFF AUTOMATED (02/05/2024 2:10 PM CDT) WBC 8.60 4.4 - 11.0 x10'3/uL 02/05/2024 2:39 PM CDT [facility] RBC 4.42(L) 4.50 - 5.10 x10'6/uL 02/05/2024 2:39 PM CDT [facility] HGB 13.1 12.3 - 15.3 G/DL 02/05/2024 2:39 PM CDT [facility] HCT 41.1 35.9 - 44.6 % 02/05/2024 2:39 PM CDT [facility] MCV 93.0 80.0 - 96.0 FL 02/05/2024 2:39 PM CDT [facility] MCH 29.6 25.3 - 30.9 PG 02/05/2024 2:39 PM CDT [facility] MCHC 31.9 31.0 - 34.1 G/DL 02/05/2024 2:39 PM CDT [facility] RDW 12.7 12.4 - 15.1 % 02/05/2024 2:39 PM CDT [facility] PLT 247 151 - 353 x10'3/uL 02/05/2024 2:39 PM T [facility] MPV 9.5(L) 9.6 - 12.0 FL 02/05/2024 2:39 PM CDT [facility] RBC MORPHOLOGY NORMAL 02/05/2024 2:39 PM T [facility] PLT MORPH. NORMAL 02/05/2024 2:39 PM CDT [facility] WBC MORPHOLOGY NORMAL 02/05/2024 2:39 PM CDT [facility] LYMPHOCYTES % 22.2 15.8 - 45.0 % 02/05/2024 2:39 PM CDT [facility] NEUTROPHILS % 64.1 42.1 - 71.9 % 02/05/2024 2:39 PM CDT [facility] MONOCYTES % 9.7 5.7 - 12.5 % 02/05/2024 2:39 PM CDT [facility] EOSINOPHILS 2.8 0.0 - 5.6 % 02/05/2024 2:39 PM CDT [facility] BASOPHILS 0.5 0.0 - 1.3 % 02/05/2024 2:39 PM CDT [facility] ABS. NEUTROPHILS 5.52 1.40 - 6.00 x10'3/uL 02/05/2024 2:39 PM CDT [facility] IMMATURE GRANS % 0.7(H) 0.0 - 0.5 % 02/05/2024 2:39 PM CDT [facility] ABS. LYMPHOCYTES 1.91 0.80 - 4.70 x10'3/uL 02/05/2024 2:39 PM CDT [facility] 02/05/2024 2:10 PM CDT Josué Cook MD LABORATORY Final Result [facility] [address] [place] [address], [place] [phone] * (ABNORMAL) COMPREHENSIVE METABOLIC PANEL (02/05/2024 2:10 PM CDT) GLUCOSE 141(H) 70 - 99 MG/DL 02/05/2024 3:19 PM CDT [facility] BUN 19(H) 7 - 18 MG/DL 02/05/2024 3:19 PM CDT [facility] CREATININE S/P/B 1.31(H) 0.55 - 1.02 MG/DL 02/05/2024 3:19 PM CDT [facility] SODIUM S/P/B 140 136 - 145 MMOL/L 02/05/2024 3:19 PM CDT [facility] POTASSIUM S/P/B 4.4 3.5 - 5.1 MMOL/L 02/05/2024 3:19 PM CDT [facility] CHLORIDE S/P/B 105 100 - 108 MMOL/L 02/05/2024 3:19 PM [facility] CO2 31.9 21 - 32 MMOL/L 02/05/2024 3:19 PM [facility] CALCIUM S/P/B 9.5 8.5 - 10.1 MG/DL 02/05/2024 3:19 PM [facility] BILIRUBIN TOTAL S/P/B 0.2 0.2 - 1.2 MG/DL 02/05/2024 3:19 PM [facility] TOTAL PROTEIN S/P/B 6.5 6.4 - 8.2 G/DL 02/05/2024 3:19 PM [facility] ALBUMIN S/P/B 3.4 3.4 - 5.0 G/DL 02/05/2024 3:19 PM [facility] AST 13(L) 15 - 37 U/L 02/05/2024 3:19 PM [facility] ALT 13(L) 14 - 55 U/L 02/05/2024 3:19 PM [facility] ALKALINE PHOSPHATASE S/P/B 102 50 - 136 U/L 02/05/2024 3:19 PM [facility] ANION GAP 3.1(L) 5 - 15 MMOL/L 02/05/2024 3:19 PM [facility] BUN CREATININE RATIO 14.5 6 - 26 02/05/2024 3:19 PM [facility] A/G RATIO 1.1 1.0 - 2.0 RATIO 02/05/2024 3:19 PM [facility] GFR ESTIMATE 41(L) >90 ML/MIN/1.7 3 M2 02/05/2024 3:19 PM [facility] Comment: NOTE: eGFR is not calculated for patients <18 years of age. This is an estimated GFR calculation using the new CKD EPI creatinine equation without race and so does not require a correction factor for race. This estimated GFR should not be used for calculating drug doses. 02/05/2024 2:10 PM CDT Josué Cook MD LABORATORY Final Result [facility] [address] [place] [address], [place] [phone] documented in this encounter Visit Diagnoses Diagnosis [...] Depression Total Score: 0 07/06/20 4:06 PM HOUSEKEEPING COORDINATOR documented as of this encounter Care Teams Salesperson Surgical Appliances Relationship Specialty Start Date End Date Servando Torre MD [address] [place] [address] [address] [place] [address] PCP - General FAMILY PRACTICE 07/17/22 documented as of this encounter
--- OUTSIDE RECORDS SUMMARY | 2024-07-15 19:44 | XMS_ITS | Encounter Summary ---
Author Organization [facility] Address [address] [facility] [place] [address] [place] [address] Care Team Providers Care Integrity Analyst Name Role Phone Servando Torre MD [...] st Contact Info) Description 08/03/2024 2:00 PM FABRICATION ENGINEER Appointment [facility] [id number] [place] [address] Josué Cook MD [address] [address] documented as of this encounter Goals Goal Patient Goal Type Associated Problems Recent Progress Patient-Stated? Author HOME TO [facility] Vannessa Light RN documented as of this encounter Visit Diagnoses Not on filedocumented in this encounter Additional Health Concerns Assessment Noted Time PHQ-9 Depression Total Score: 0 07/06/20 21 4:06 PM FABRICATION ENGINEER documented as of this encounter Care Teams Integrity Analyst Relationship Specialty Start Date End Date Servando Torre MD [address] [place] [address] [address] [place] [address] PCP - General FAMILY PRACTICE 07/17/22 documented as of this encounter
--- OUTSIDE RECORDS SUMMARY | 2024-07-15 19:44 | XMS_ITS | Clinical Summary ---
Author Organization [facility] Address [address] [facility] [address] [place] [address] Care Team Providers Care Fleet Driver Name Role Phone Servando Torre MD Primary Care Provider [phone] Allergies Active Allergy Reactions Criticality Noted Date [...] tests 05/20/2023 Chronic ulcerative colitis, unspecified complication ([facility]/HCC) 06/18/2022 Ulcerative pancolitis withou t complication ([facility]) 09/04/2021 Overview (09/04/2021): Added automatically from request for surgery [id number] Colitis 03/20/2020 Encounters Date Type Department Care Team Description 05/28/2024 1:43 PM CDT - 05/28/2024 2:55 PM CDT Hospital Encounter [facility] [address] [place] [address] Josué Cook MD Discharge Disposition: Home or [...] st Contact Info) Description 08/03/2024 2:00 PM BRINE SUPERVISOR Appointment [facility] [address] [id number] Josué Cook MD [address] [facility] [address] [place] [address] Health Maintenance Due Date Last Done Comments [...] TO INDEPENDENT LIVING General No Vannessa Blackwell, director of veterans affairs Procedure Name Priority Date/Time Associated Diagnosis Comments [...] NIL 0.01 IU/ML 05/31/20 24 1:56 PM [facility] TB2 AG MINUS NIL 0.04 IU/ML 05/31/20 24 1:56 PM [facility] TB QUANTIFERON NEGATIVE NEGATIVE 05/31/2024 1:56 PM [facility] TB INTERPRETATION M. tuberculosis infection unlikely but cannot be excluded especially when any illness is consistent with TB disease and/or likelihood of progression to disease is increased. ?? In patients at high risk to M. tuberculosis infection, a second test should be considered. 05/31/2024 1:56 PM [facility] 05/28/2024 2:00 PM CDT us Josué Cook MD LABORATORY Final Result [facility] [address] [place] [address], [place] [phone] [id number] * (ABNORMAL) COMPREHENSIVE METABOLIC PANEL (05/28/2024 2:00 PM CDT) [facility] GLUCOSE 145(H) 70 - 99 MG/DL 05/28/2024 2:53 PM CDT [facility] BUN 16 7 - 18 MG/DL 05/28/2024 2:53 PM CDT [facility] CREATININE S/P/B 1.12(H) 0.55 - 1.02 MG/DL 05/28/2024 2:53 PM CDT [facility] SODIUM S/P/B 139 136 - 145 MMOL/L 05/28/2024 2:53 PM CDT [facility] POTASSIUM S/P/B 4.0 3.5 - 5.1 MMOL/L 05/28/2024 2:53 PM CDT [facility] CHLORIDE S/P/B 102 100 - 108 MMOL/L 05/28/2024 2:53 PM CDT [facility] CO2 28.6 21 - 32 MMOL/L 05/28/2024 2:53 PM CDT [facility] CALCIUM S/P/B 9.7 8.5 - 10.1 MG/DL 05/28/2024 2:53 PM CDT [facility] BILIRUBIN TOTAL S/P/B 0.2 0.2 - 1.2 MG/DL 05/28/2024 2:53 PM CDT [facility] TOTAL PROTEIN S/P/B 6.9 6.4 - 8.2 G/DL 05/28/2024 2:53 PM CDT [facility] ALBUMIN S/P/B 3.4 3.4 - 5.0 G/DL 05/28/2024 2:53 PM CDT [facility] AST 19 15 - 37 U/L 05/28/2024 2:53 PM CDT [facility] ALT 19 14 - 55 U/L 05/28/2024 2:53 PM CDT [facility] ALKALINE PHOSPHATASE S/P/B 117 50 - 136 U/L 05/28/2024 2:53 PM CDT [facility] ANION GAP 8.4 5 - 15 MMOL/L 05/28/2024 2:53 PM CDT [facility] BUN CREATININE RATIO 14.3 6 - 26 05/28/2024 2:53 PM CDT [facility] A/G RATIO 1.0 1.0 - 2.0 RATIO 05/28/2024 2:53 PM CDT [facility] GFR ESTIMATE 49(L) >90 ML/MIN/1.7 3 M2 05/28/2024 2:53 PM CDT [facility] Comment: NOTE: eGFR is not calculated for patients <18 years of age. This is an estimated GFR calculation using the new CKD EPI creatinine equation without race and so does not require a correction factor for race. This estimated GFR should not be used for calculating drug doses. 05/28/2024 2:00 PM CDT us Josué Cook MD LABORATORY Final Result [facility] [address] [place] [address], * HEPATITIS B SURFACE AG, EIA (05/28/2024 2:00 PM CDT) HEPATITIS B SURFACE AG NON-REACTI VE NON-REACTI VE 05/28/2024 8:[address] [facility] 05/28/2024 2:00 PM CDT us Josué Cook MD LABORATORY Final Result Performing Organization Address City/[facility]/ZIP Co de Phone Number [facility] [address] [place] [address], [place] [phone] * HEPATITIS B SURFACE ANTIBODY (05/28/2024 2:00 PM CDT) HEP B SURFACE AB NON-REACTI VE 05/28/2024 11:[address] [facility] 05/28/2024 2:00 PM CDT us Josué Cook MD LABORATORY Final Result Performing Organization Address City/[facility]/ZIP Co de Phone Number [facility] [address] [place] [address], [place] [phone] * HEPATITIS B CORE ANTIBODY (05/28/2024 2:00 PM CDT) HEP B CORE TOTAL AB NON-REACTI VE NON-REACTI VE 05/28/2024 9:[address] [facility] 05/28/2024 2:00 PM CDT us Josué Cook MD LABORATORY Final Result Performing Organization Address City/[facility]/ZIP Co de Phone Number [facility] [address] [place] [address], [place] [phone] * C-REACTIVE PROTEIN (05/28/2024 2:00 PM CDT) C-REACTIVE PROTEIN <0.29 <0.29 mg/dL 05/28/2024 8:[address] [facility] 05/28/2024 2:00 PM CDT Josué Cook MD LABORATORY Final Result [facility] [address] [place] [address], * (ABNORMAL) CBC W/DIFF AUTOMATED (05/28/2024 2:00 PM CDT) WBC 10.79 4.4 - 11.0 x10'3/uL 05/28/2024 2:34 PM CDT [facility] RBC 4.65 4.50 - 5.10 x10'6/uL 05/28/2024 2:34 PM CDT [facility] HGB 13.6 12.3 - 15.3 G/DL 05/28/2024 2:34 PM CDT [facility] HCT 42.1 35.9 - 44.6 % 05/28/2024 2:34 PM CDT [facility] MCV 90.5 80.0 - 96.0 FL 05/28/2024 2:34 PM CDT [facility] MCH 29.2 25.3 - 30.9 PG 05/28/2024 2:34 PM CDT [facility] MCHC 32.3 31.0 - 34.1 G/DL 05/28/2024 2:34 PM CDT [facility] RDW 13.2 12.4 - 15.1 % 05/28/2024 2:34 PM CDT [facility] PLT 288 151 - 353 x10'3/uL 05/28/2024 2:34 PM CDT [facility] MPV 9.7 9.6 - 12.0 FL 05/28/2024 2:34 PM CDT [facility] RBC MORPHOLOGY NORMAL 05/28/2024 2:34 PM CDT [facility] PLT MORPH. NORMAL 05/28/2024 2:34 PM CDT [facility] WBC MORPHOLOGY NORMAL 05/28/2024 2:34 PM CDT [facility] LYMPHOCYTES % 19.5 15.8 - 45.0 % 05/28/2024 2:34 PM CDT [facility] NEUTROPHILS % 70.3 42.1 - 71.9 % 05/28/2024 2:34 PM CDT [facility] MONOCYTES % 7.3 5.7 - 12.5 % 05/28/2024 2:34 PM CDT [facility] EOSINOPHILS 1.9 0.0 - 5.6 % 05/28/2024 2:34 PM CDT [facility] BASOPHILS 0.6 0.0 - 1.3 % 05/28/2024 2:34 PM CDT [facility] ABS. NEUTROPHILS 7.59(H) 1.40 - 6.00 x10'3/uL 05/28/2024 2:34 PM CDT [facility] IMMATURE GRANS % 0.4 0.0 - 0.5 % 05/28/2024 2:34 PM CDT [facility] ABS. LYMPHOCYTES 2.10 0.80 - 4.70 x10'3/uL 05/28/2024 2:34 PM CDT [facility] 05/28/2024 2:00 PM CDT us Josué Cook MD LABORATORY Final Result [facility] [address] [place] [address], [place] [phone] from Last 3 Months Insurance MEDICARE [id number] Advance Directives * Full Code (Latest Code Status on File) Date Activated Date Inactivated Comments 03/20/2020 11:16 AM 03/23/2020 7:48 PM Care Teams Fleet Driver Relationship Specialty Start Date End Date Servando Torre MD [address] [place] [address] [address] [place] [address] PCP - General FAMILY PRACTICE 07/17/22
--- OUTSIDE RECORDS SUMMARY | 2024-07-15 19:44 | XMS_ITS | Encounter Summary ---
Author Organization [facility] Address [address] [facility] [place] [address] [place] [address] Care Team Providers Care Bindery Library Technical Assistant Name Role Phone Servando Torre MD Primary Care Provider [phone] Reason for Visit * Treatment/Therapy Plan Authorization (Routine) - Authorized Specialty Diagnoses / Procedures Referred By Angel braswell Referred To Contact Diagnoses Chronic ulcerative colitis, unspecified complication ([facility]/HCC HHS/HCC) Abnormal liver function tests Procedures VEDOLIZUMAB, INJECTION [facility] [address] [place] [address] Phone: tel: [facility] [address] [place] [address] Phone: tel: Referral ID Status Reason Start Date Expiration Date Visits Requested Visits Authorized [id number] Authorized Medication 05/01/2023 07/27/2024 99 [phone] Encounter Details Date Type Department Care Team (Latest Contact Info) Description 05/28/2024 1:43 PM CDT - 05/28/2024 2:55 PM CDT Hospital Encounter [facility] [address] [place] [address] Josué Cook MD [address] [facility] [address] [place] [address] Discharge Disposition: Home or Self Care (Routine [...] st Contact Info) Description 08/03/2024 2:00 PM SPEECH PATHOLOGY SUPERVISOR Appointment [facility] [address] [place], [place] [id number] Josué Cook MD [address] [address] documented as of this encounter Goals Goal Patient Goal Type Associated Problems Recent Progress Patient-Stated? Author HOME TO INDEPENDENT Man [facility] Vannessa Light RN documented as of [...] <0.29 <0.29 mg/dL 05/28/2024 8:37 PM CDT [facility] 05/28/2024 2:00 PM CDT us Anas K Gremida MD LABORATORY Final Result [facility] [address] [place] [address], * (ABNORMAL) CBC W/DIFF AUTOMATED (05/28/2024 2:00 PM CDT) WBC 10.79 4.4 - 11.0 x10'3/uL 05/28/2024 2:34 PM CDT [facility] RBC 4.65 4.50 - 5.10 x10'6/uL 05/28/2024 2:34 PM CDT [facility] HGB 13.6 12.3 - 15.3 G/DL 05/28/2024 2:34 PM CDT [facility] HCT 42.1 35.9 - 44.6 % 05/28/2024 2:34 PM CDT [facility] MCV 90.5 80.0 - 96.0 FL 05/28/2024 2:34 PM CDT [facility] MCH 29.2 25.3 - 30.9 PG 05/28/2024 2:34 PM CDT [facility] MCHC 32.3 31.0 - 34.1 G/DL 05/28/2024 2:34 PM CDT [facility] RDW 13.2 12.4 - 15.1 % 05/28/2024 2:34 PM CDT [facility] PLT 288 151 - 353 x10'3/uL 05/28/2024 2:34 PM CDT [facility] MPV 9.7 9.6 - 12.0 FL 05/28/2024 2:34 PM CDT [facility] RBC MORPHOLOGY NORMAL 05/28/2024 2:34 PM CDT [facility] PLT MORPH. NORMAL 05/28/2024 2:34 PM CDT [facility] WBC MORPHOLOGY NORMAL 05/28/2024 2:34 PM CDT [facility] LYMPHOCYTES % 19.5 15.8 - 45.0 % 05/28/2024 2:34 PM CDT [facility] NEUTROPHILS % 70.3 42.1 - 71.9 % 05/28/2024 2:34 PM CDT [facility] MONOCYTES % 7.3 5.7 - 12.5 % 05/28/2024 2:34 PM CDT [facility] EOSINOPHILS 1.9 0.0 - 5.6 % 05/28/2024 2:34 PM CDT [facility] BASOPHILS 0.6 0.0 - 1.3 % 05/28/2024 2:34 PM CDT [facility] ABS. NEUTROPHILS 7.59(H) 1.40 - 6.00 x10'3/uL 05/28/2024 2:34 PM CDT [facility] IMMATURE GRANS % 0.4 0.0 - 0.5 % 05/28/2024 2:34 PM CDT [facility] ABS. LYMPHOCYTES 2.10 0.80 - 4.70 x10'3/uL 05/28/2024 2:34 PM CDT [facility] 05/28/2024 2:00 PM CDT us Josué Cook MD LABORATORY Final Result [facility] [address] [place] [address], [place] [phone] * (ABNORMAL) COMPREHENSIVE METABOLIC PANEL (05/28/2024 2:00 PM CDT) Pathologist [facility] GLUCOSE 145(H) 70 - 99 MG/DL 05/28/2024 2:53 PM T [facility] BUN 16 7 - 18 MG/DL 05/28/2024 2:53 PM T [facility] CREATININE S/P/B 1.12(H) 0.55 - 1.02 MG/DL 05/28/2024 2:53 PM T [facility] SODIUM S/P/B 139 136 - 145 MMOL/L 05/28/2024 2:53 PM T [facility] POTASSIUM S/P/B 4.0 3.5 - 5.1 MMOL/L 05/28/2024 2:53 PM T [facility] CHLORIDE S/P/B 102 100 - 108 MMOL/L 05/28/2024 2:53 PM T [facility] CO2 28.6 21 - 32 MMOL/L 05/28/2024 2:53 PM T [facility] CALCIUM S/P/B 9.7 8.5 - 10.1 MG/DL 05/28/2024 2:53 PM T [facility] BILIRUBIN TOTAL S/P/B 0.2 0.2 - 1.2 MG/DL 05/28/2024 2:53 PM T [facility] TOTAL PROTEIN S/P/B 6.9 6.4 - 8.2 G/DL 05/28/2024 2:53 PM T [facility] ALBUMIN S/P/B 3.4 3.4 - 5.0 G/DL 05/28/2024 2:53 PM T [facility] AST 19 15 - 37 U/L 05/28/2024 2:53 PM T [facility] ALT 19 14 - 55 U/L 05/28/2024 2:53 PM T [facility] ALKALINE PHOSPHATASE S/P/B 117 50 - 136 U/L 05/28/2024 2:53 PM CDT [facility] ANION GAP 8.4 5 - 15 MMOL/L 05/28/2024 2:53 PM CDT [facility] BUN CREATININE RATIO 14.3 6 - 26 05/28/2024 2:53 PM CDT [facility] A/G RATIO 1.0 1.0 - 2.0 RATIO 05/28/2024 2:53 PM CDT [facility] GFR ESTIMATE 49(L) >90 ML/MIN/1.7 3 M2 05/28/2024 2:53 PM CDT [facility] Comment: NOTE: eGFR is not calculated for patients <18 years of age. This is an estimated GFR calculation using the new CKD EPI creatinine equation without race and so does not require a correction factor for race. This estimated GFR should not be used for calculating drug doses. 05/28/2024 2:00 PM CDT us Josué Cook MD LABORATORY Final Result [facility] [address] [place] [address], [place] [phone] * HEPATITIS B CORE ANTIBODY (05/28/2024 2:00 PM CDT) HEP B CORE TOTAL AB NON-REACTI VE NON-REACTI VE 05/28/2024 9:04 PM CDT [facility] 05/28/2024 2:00 PM CDT us Josué Cook MD LABORATORY Final Result [facility] [address] [place] [address], [place] [phone] * HEPATITIS B SURFACE ANTIBODY (05/28/2024 2:00 PM CDT) HEP B SURFACE AB NON-REACTI VE 05/28/2024 11:01 PM CDT [facility] 05/28/2024 2:00 PM CDT us Josué Cook MD LABORATORY Final Result [facility] [address] [place] [address], [place] [phone] * HEPATITIS B SURFACE AG, EIA (05/28/2024 2:00 PM CDT) HEPATITIS B SURFACE AG NON-REACTI VE NON-REACTI VE 05/28/2024 8:34 PM CDT [facility] 05/28/2024 2:00 PM CDT us Josué Cook MD LABORATORY Final Result Performing Organization Address City/[facility]/ZIP Co de Phone Number [facility] [address] [place] [address], [place] [phone] * QUANTIFERON TBGOLD TUBERCULOSIS TEST (05/28/2024 2:00 PM CDT) TB1 AG MINUS NIL 0.01 IU/ML 05/31/20 24 1:56 PM SPEECH PATHOLOGY SUPERVISOR [facility] TB2 AG MINUS NIL 0.04 IU/ML 05/31/20 24 1:56 PM SPEECH PATHOLOGY SUPERVISOR [facility] TB QUANTIFERON NEGATIVE NEGATIVE 05/31/2024 1:56 PM SPEECH PATHOLOGY SUPERVISOR [facility] TB INTERPRETATION M. tuberculosis infection unlikely but cannot be excluded especially when any illness is consistent with TB disease and/or likelihood of progression to disease is increased. ?? In patients at high risk to M. tuberculosis infection, a second test should be considered. 05/31/2024 1:56 PM SPEECH PATHOLOGY SUPERVISOR [facility] 05/28/2024 2:00 PM CDT Josué Cook MD LABORATORY Final Result [facility] [address] [place] [address], [id number] documented in this encounter Visit Diagnoses Diagnosis [...] Total Score: 0 07/06/20 21 4:06 PM SPEECH PATHOLOGY SUPERVISOR documented as of this encounter Care Teams B[employer] Library Technical Assistant Relationship Specialty Start Date End Date Servando Torre MD [address] [place] [address] [address] [place] [address] PCP - General FAMILY PRACTICE 07/17/22 documented as of this encounter
--- OUTSIDE RECORDS SUMMARY | 2024-07-15 19:44 | XMS_ITS | Encounter Summary ---
Author Organization [facility] Address [address] [facility] [place] [address] [place] [address] Care Team Providers Care Line O Scribe Operator Name Role Phone Servando Torre MD Primary Care Provider Encounter Details Date Type Department Care Team (Late st Contact Info) Description 04/05/2024 Orders Only [facility] [address] [place] [address] Derick Martínez MD [address] [facility] [address] [place] [address] Social History Tobacco Use Types Packs/Day Years [...] st Contact Info) Description 08/03/2024 2:00 PM TAPER/FINISHER Appointment [address] [address] Josué Cook MD [address] [address] documented as of this encounter Goals Goal Patient Goal Type Associated Problems Recent Progress Patient-Stated? Author HOME TO INDEPENDENT LIVING [facility] No Vannessa Blackwell RN documented as of this encounter Visit Diagnoses Not on filedocumented in this encounter Additional Health Concerns Assessment Noted Time PHQ-9 Depression Total Score: 0 07/06/20 4:06 PM TAPER/FINISHER documented as of this encounter Care Teams Line O Scribe Operator Relationship Specialty Start Date End Date Servando Torre MD [address] [place] [address] [address] [place] [address] PCP - General FAMILY PRACTICE 07/17/22 documented as of this encounter
--- OUTSIDE RECORDS SUMMARY | 2024-07-15 19:44 | XMS_ITS | Encounter Summary ---
Author Organization [facility] Address [address] [facility] [place] [address] [place] [address] Care Team Providers Care Development Technologist Name Role Phone Servando Torre MD Primary Care Provider [phone] Reason for Visit * Treatment/Therapy Plan Authorization (Routine) - Authorized Specialty Diagnoses / Procedures Referred By Angel braswell Referred To Contact Diagnoses Chronic ulcerative colitis, unspecified complication ([facility]/HCC HHS/HCC) Abnormal liver function tests Procedures VEDOLIZUMAB, INJECTION [facility] [address] [place] [address] Phone: tel: [facility] [address] [place] [address] Phone: tel: Referral ID Status Reason Start Date Expiration Date Visits Requested Visits Authorized [id number] Authorized Medication 05/01/2023 07/27/2024 99 99 Encounter Details Date Type Department Care Team (Latest Contact Info) Description 12/11/2023 1:51 PM CDT - 12/11/2023 2:58 PM CDT Hospital Encounter [facility] [address] [place] [address] Josué Cook MD [address] [facility] [address] [place] [address] Discharge Disposition: Home or Self Care (Routine [...] st Contact Info) Description 08/03/2024 2:00 PM REVENUE FIELD AUDITOR Appointment [address] [address] Josué Cook MD [address] [facility] [address] [place] [address] documented as of this encounter Goals Goal [...] <0.29 <0.29 mg/dL 12/11/2023 7:54 PM CDT [facility] 12/11/2023 1:56 PM CDT Josué Cook MD LABORATORY Final Result [facility] [address] [place] [address], [place] [phone] * (ABNORMAL) CBC W/DIFF AUTOMATED (12/11/2023 1:56 PM CDT) Pathologist [facility] WBC 8.77 4.4 - 11.0 x10'3/uL 12/11/2023 2:32 PM CDT [facility] RBC 4.29(L) 4.50 - 5.10 x10'6/uL 12/11/2023 2:32 PM CDT [facility] HGB 13.2 12.3 - 15.3 G/DL 12/11/2023 2:32 PM CDT [facility] HCT 40.2 35.9 - 44.6 % 12/11/2023 2:32 PM CDT [facility] MCV 93.7 80.0 - 96.0 FL 12/11/2023 2:32 PM CDT [facility] MCH 30.8 25.3 - 30.9 PG 12/11/2023 2:32 PM CDT [facility] MCHC 32.8 31.0 - 34.1 G/DL 12/11/2023 2:32 PM CDT [facility] RDW 13.5 12.4 - 15.1 % 12/11/2023 2:32 PM CDT [facility] PLT 237 151 - 353 x10'3/uL 12/11/2023 2:32 PM CDT [facility] MPV 9.2(L) 9.6 - 12.0 FL 12/11/2023 2:32 PM CDT [facility] RBC MORPHOLOGY NORMAL 12/11/2023 2:32 PM CDT [facility] PLT MORPH. NORMAL 12/11/2023 2:32 PM T [facility] WBC MORPHOLOGY NORMAL 12/11/2023 2:32 PM CDT [facility] LYMPHOCYTES % 22.3 15.8 - 45.0 % 12/11/2023 2:32 PM T [facility] NEUTROPHILS % 63.6 42.1 - 71.9 % 12/11/2023 2:32 PM CDT [facility] MONOCYTES % 9.6 5.7 - 12.5 % 12/11/2023 2:32 PM CDT [facility] EOSINOPHILS 3.2 0.0 - 5.6 % 12/11/2023 2:32 PM CDT [facility] BASOPHILS 0.7 0.0 - 1.3 % 12/11/2023 2:32 PM CDT [facility] ABS. NEUTROPHILS 5.58 1.40 - 6.00 x10'3/uL 12/11/2023 2:32 PM CDT [facility] IMMATURE GRANS % 0.6(H) 0.0 - 0.5 % 12/11/2023 2:32 PM CDT [facility] ABS. LYMPHOCYTES 1.96 0.80 - 4.70 x10'3/uL 12/11/2023 2:32 PM CDT [facility] 12/11/2023 1:56 PM CDT us Josué Cook MD LABORATORY Final Result [facility] [address] [place] [address], * (ABNORMAL) COMPREHENSIVE METABOLIC PANEL (12/11/2023 1:56 PM CDT) GLUCOSE 121(H) 70 - 99 MG/DL 12/11/2023 2:43 PM CDT [facility] BUN 19(H) 7 - 18 MG/DL 12/11/2023 2:43 PM CDT [facility] CREATININE S/P/B 1.36(H) 0.55 - 1.02 MG/DL 12/11/2023 2:43 PM CDT [facility] SODIUM S/P/B 137 136 - 145 MMOL/L 12/11/2023 2:43 PM CDT [facility] POTASSIUM S/P/B 3.8 3.5 - 5.1 MMOL/L 12/11/2023 2:43 PM CDT [facility] CHLORIDE S/P/B 102 100 - 108 MMOL/L 12/11/2023 2:43 PM CDT [facility] CO2 30.9 21 - 32 MMOL/L 12/11/2023 2:43 PM CDT [facility] CALCIUM S/P/B 8.9 8.5 - 10.1 MG/DL 12/11/2023 2:43 PM [facility] BILIRUBIN TOTAL S/P/B 0.2 0.2 - 1.2 MG/DL 12/11/2023 2:43 PM [facility] TOTAL PROTEIN S/P/B 6.2(L) 6.4 - 8.2 G/DL 12/11/2023 2:43 PM [facility] ALBUMIN S/P/B 3.2(L) 3.4 - 5.0 G/DL 12/11/2023 2:43 PM [facility] AST 7(L) 15 - 37 U/L 12/11/2023 2:43 PM [facility] ALT 17 14 - 55 U/L 12/11/2023 2:43 PM [facility] ALKALINE PHOSPHATASE S/P/B 98 50 - 136 U/L 12/11/2023 2:43 PM [facility] ANION GAP 4.1(L) 5 - 15 MMOL/L 12/11/2023 2:43 PM [facility] BUN CREATININE RATIO 14.0 6 - 26 12/11/2023 2:43 PM [facility] A/G RATIO 1.1 1.0 - 2.0 RATIO 12/11/2023 2:43 PM [facility] GFR ESTIMATE 39(L) >90 ML/MIN/1.7 3 M2 12/11/2023 2:43 PM [facility] Comment: NOTE: eGFR is not calculated for patients <18 years of age. This is an estimated GFR calculation using the new CKD EPI creatinine equation without race and so does not require a correction factor for race. This estimated GFR should not be used for calculating drug doses. 12/11/2023 1:56 PM CDT Josué Cook MD LABORATORY Final Result [facility] [address] [place] [address], [place] [phone] documented in this encounter Visit Diagnoses Diagnosis [...] Total Score: 0 07/06/20 21 4:06 PM [employer] documented as of this encounter Care Teams Development Technologist Relationship Specialty Start Date End Date Servando Torre MD [address] [facility] [address] [place] [address] PCP - General FAMILY PRACTICE 07/17/22 documented as of this encounter
--- OUTSIDE RECORDS SUMMARY | 2024-07-15 19:45 | XMS_ITS | Encounter Summary ---
Author Organization [facility] Address [address] [facility] [place] [address] [place] [address] Care Team Providers Care Tender Coordinator Name Role Phone Jared Abrams MD Primary Care Provider [phone] Encounter Details Date Type Department Care Team (Late st Contact Info) Description 06/22/2022 Orders Only [facility] [address] [facility] [address] [place] [address] Alen Corbett, DO [address] [address] Social History Tobacco Use Types Packs/Day Years [...] st Contact Info) Description 08/03/2024 2:00 PM BLOW PIT OPERATOR Appointment [address] [address] Josué Cook MD [address] [address] documented as of this encounter Goals Goal Patient Goal Type Associated Problems Recent Progress Patient-Stated? Author HOME TO [facility] General No Vannessa Blackwell RN documented as of this encounter Visit Diagnoses Not on filedocumented in this encounter Additional Health Concerns Assessment Noted Time PHQ-9 Depression Total Score: 0 07/06/20 21 4:06 PM BLOW PIT OPERATOR documented as of this encounter Care Teams Tender Coordinator Relationship Specialty Start Date End Date Jared Abrams MD PCP - General 08/28/11 07/16/22 documented as of this encounter
--- OUTSIDE RECORDS SUMMARY | 2024-07-15 19:45 | XMS_ITS | Encounter Summary ---
Author Organization [facility] Address [address] [facility] [place] [address] [place] [address] Care Team Providers Care Barrel Roller Name Role Phone Servando Torre MD Primary [...] Coronavirus/COVID-19? No / Unsure 07/31/2022 1:38 PM BURNT LIME DRAWER documented as of this encounter Functional Status [...] st Contact Info) Description 08/03/2024 2:00 PM BURNT LIME DRAWER Appointment [address] [address] Josué Cook MD [address] [address] documented as of this encounter Goals Goal Patient Goal Type Associated Problems Recent Progress Patient-Stated? Author HOME TO [facility]IV[facility] Vannessa Light RN documented as of this encounter Visit Diagnoses Not on filedocumented in this encounter Additional Health Concerns Assessment Noted Time PHQ-9 Depression Total Score: 0 07/06/20 21 4:06 PM BURNT LIME DRAWER documented as of this encounter Care Teams Barrel Roller Relationship Specialty Start Date End Date Servando Torre MD [address] [place] [address] [address] [place] [address] PCP - General FAMILY PRACTICE 07/17/22 documented as of this encounter
--- OUTSIDE RECORDS SUMMARY | 2024-07-15 19:45 | XMS_ITS | Encounter Summary ---
Author Organization [facility] Address [address] [facility] [place] [address] [place] [address] Care Team Providers Care Steam Press Tender Name Role Phone Jared Abrams MD Primary Care Provider [phone] Encounter Details Date Type Department Care Team [...] st Contact Info) Description 08/03/2024 2:00 PM VIDEO SURVEILLANCE TECHNICIAN Appointment [address] [address] Josué Cook MD [address] [address] documented as of this encounter Goals Goal Patient Goal Type Associated Problems Recent Progress Patient-Stated? Author HOME TO [facility] General No Vannessa Blackwell RN documented as of this encounter Visit Diagnoses Not on filedocumented in this encounter Additional Health Concerns Assessment Noted Time PHQ-9 Depression Total Score: 0 07/06/20 21 4:06 PM VIDEO SURVEILLANCE TECHNICIAN documented as of this encounter Care Teams Steam Press Tender Relationship Specialty Start Date End Date Jared Abrams MD PCP - General 08/28/11 07/16/22 documented as of this encounter
--- OUTSIDE RECORDS SUMMARY | 2024-07-15 19:45 | XMS_ITS | Encounter Summary ---
Author Organization [facility] Address [address] [facility] [place] [address] [place] [address] Care Team Providers Care Manager Retail Name Role Phone Servando Torre MD Primary Care Provider [phone] Reason for Visit * Treatment/Therapy Plan Authorization (Routine) - Closed Specialty Diagnoses / Procedures Referred By Angel braswell Referred To Contact Diagnoses Chronic ulcerative colitis, unspecified complication ([facility]/HCC [facility]) Procedures VEDOLIZUMAB, INJECTION [facility] [address] [place] [address] Phone: tel: [facility] [address] [place] [address] Phone: tel: Referral ID Status Reason Start Date Expiration Date Visits Re quested Visits Authorized [id number] Closed 06/18/2022 3 3 Encounter Details Date Type Department Care Team (Latest Contact Info) Description 12/18/2022 3:40 PM CDT - 12/18/2022 3:41 PM CDT Hospital Encounter [facility] [address] [place] [address] Mariela Denton MD [address] [place] [address] Discharge Disposition: Home or Self Care (Routine [...] st Contact Info) Description 08/03/2024 2:00 PM [facility] Appointment [facility] [address] [place], [place] [id number] Josué Cook MD [address] [place] [address] documented as of this encounter Goals Goal Patient Goal Type Associated Problems Recent Progress Patient-Stated? Author HOME TO [facility] No Vannessa Blackwell RN documented as [...] - 8.2 G/DL 12/18/2022 5:22 PM T [facility] ALBUMIN S/P/B 3.5 3.4 - 5.0 G/DL 12/18/2022 5:22 PM [facility] BILIRUBIN TOTAL S/P/B 0.2 0.2 - 1.2 MG/DL 12/18/2022 5:22 PM [facility] BILIRUBIN DIRECT S/P/B <0.1 0.0 - 0.20 MG/DL 12/18/2022 5:22 PM [facility] BILIRUBIN INDIRECT S/P/B 0.2 0.0 - 0.9 MG/DL 12/18/2022 5:22 PM [facility] ALKALINE PHOSPHATASE S/P/B 79 50 - 136 U/L 12/18/2022 5:22 PM [facility] AST 21 15 - 37 U/L 12/18/2022 5:22 PM [facility] ALT 22 14 - 55 U/L 12/18/2022 5:22 PM [facility] A/G RATIO 1.0 1.0 - 2.0 RATIO 12/18/2022 5:22 PM [facility] 12/18/2022 2:12 PM CDT us Mariela Denton MD LABORATORY Final Res ult [facility] [address] [place] [address], [place] [phone] * (ABNORMAL) CBC W/DIFF AUTOMATED (12/18/2022 2:12 PM CDT) Pathologist [facility] WBC 9.27 4.4 - 11.0 x10'3/uL 12/18/2022 5:09 PM CDT [facility] RBC 4.34(L) 4.50 - 5.10 x10'6/uL 12/18/2022 5:09 PM CDT [facility] HGB 12.7 12.3 - 15.3 G/DL 12/18/2022 5:09 PM CDT [facility] HCT 39.4 35.9 - 44.6 % 12/18/2022 5:09 PM CDT [facility] MCV 90.8 80.0 - 96.0 FL 12/18/2022 5:09 PM CDT [facility] MCH 29.3 25.3 - 30.9 PG 12/18/2022 5:09 PM CDT [facility] MCHC 32.2 31.0 - 34.1 G/DL 12/18/2022 5:09 PM CDT [facility] RDW 15.0 12.4 - 15.1 % 12/18/2022 5:09 PM CDT [facility] PLT 249 151 - 353 x10'3/uL 12/18/2022 5:09 PM CDT [facility] MPV 9.6 9.6 - 12.0 FL 12/18/2022 5:09 PM CDT [facility] RBC MORPHOLOGY NORMAL 12/18/2022 5:09 PM CDT [facility] PLT MORPH. NORMAL 12/18/2022 5:09 PM CDT [facility] WBC MORPHOLOGY NORMAL 12/18/2022 5:09 PM CDT [facility] LYMPHOCYTES % 26.5 15.8 - 45.0 % 12/18/2022 5:09 PM CDT [facility] NEUTROPHILS % 62.4 42.1 - 71.9 % 12/18/2022 5:09 PM CDT [facility] MONOCYTES % 7.8 5.7 - 12.5 % 12/18/2022 5:09 PM CDT [facility] EOSINOPHILS 2.3 0.0 - 5.6 % 12/18/2022 5:09 PM CDT [facility] BASOPHILS 0.5 0.0 - 1.3 % 12/18/2022 5:09 PM CDT [facility] ABS. NEUTROPHILS 5.78 1.40 - 6.00 x10'3/uL 12/18/2022 5:09 PM CDT [facility] IMMATURE GRANS % 0.5 0.0 - 0.5 % 12/18/2022 5:09 PM CDT [facility] ABS. LYMPHOCYTES 2.46 0.80 - 4.70 x10'3/uL 12/18/2022 5:09 PM T [facility] 12/18/2022 2:12 PM CDT us Mariela Denton MD LABORATORY Final Res ult [facility] [address] [place] [address], [place] [phone] documented in this encounter Visit Diagnoses Diagnosis [...] Fri12/18/22 at 1404Indications:Chronic ulcerative colitis, unspecified complication ([facility] HHS/HCC) Given 12/18/2022 2:04 PM CDT [...] NS after completion.Indications:Chronic ulcerative colitis, unspecified complication ([facility] HHS/HCC) New Bag 12/18/2022 2:33 PM [...] Total Score: 0 07/06/20 21 4:06 PM [facility] documented as of this encounter Care Teams Manager Retail Relationship Specialty Start Date End Date Servando Torre MD [address] [place] [address] [address] [place] [address] PCP - General FAMILY PRACTICE 07/17/22 documented as of this encounter
--- OUTSIDE RECORDS SUMMARY | 2024-07-15 19:45 | XMS_ITS | Encounter Summary ---
Author Organization [facility] Address [address] [facility] [place] [address] [place] [address] Care Team Providers Care Vinyl Flooring Installer Name Role Phone Servando Torre MD Primary [...] Coronavirus/COVID-19? No / Unsure 08/28/2022 1:37 PM UI UX DEVELOPER documented as of this encounter Functional Status [...] st Contact Info) Description 08/03/2024 2:00 PM UI UX DEVELOPER Appointment [address] [address] Josué Cook MD [address] [address] documented as of this encounter Goals Goal Patient Goal Type Associated Problems Recent Progress Patient-Stated? Author HOME TO [facility]IV[facility] Vannessa Light RN documented as of this encounter Visit Diagnoses Not on filedocumented in this encounter Additional Health Concerns Assessment Noted Time PHQ-9 Depression Total Score: 0 07/06/20 21 4:06 PM UI UX DEVELOPER documented as of this encounter Care Teams Vinyl Flooring Installer Relationship Specialty Start Date End Date Servando Torre MD [address] [place] [address] [address] [place] [address] PCP - General FAMILY PRACTICE 07/17/22 documented as of this encounter
--- OUTSIDE RECORDS SUMMARY | 2024-07-15 19:45 | XMS_ITS | Encounter Summary ---
Author Organization [facility] Address [address] [facility] [place] [address] [place] [address] Care Team Providers Care Supervisor Meter Repair Shop Name Role Phone Jared Abrams MD Primary Care Provider Encounter Details Date Type Department Care Team (Late st Contact Info) Description 06/20/2022 Orders Only [facility] [address] [facility] [address] [place] [address] Alen Corbett, DO [address] [address] Social History Tobacco Use Types Packs/Day Years [...] st Contact Info) Description 08/03/2024 2:00 PM GLASS POLISHER Appointment [address] [address] Josué Cook MD [address] [address] documented as of this encounter Goals Goal Patient Goal Type Associated Problems Recent Progress Patient-Stated? Author HOME TO [facility] General No Vannessa Blackwell RN documented as of this encounter Visit Diagnoses Not on filedocumented in this encounter Additional Health Concerns Assessment Noted Time PHQ-9 Depression Total Score: 0 07/06/20 21 4:06 PM GLASS POLISHER documented as of this encounter Care Teams Supervisor Meter Repair Shop Relationship Specialty Start Date End Date Jared Abrams MD PCP - General 08/28/11 07/16/22 documented as of this encounter
--- OUTSIDE RECORDS SUMMARY | 2024-07-15 19:45 | XMS_ITS | Encounter Summary ---
Author Organization [facility] Address [address] [facility] [place] [address] [place] [address] Care Team Providers Care Corporate Planner Name Role Phone Servando Torre MD Primary [...] Author Status Yes 03/23/2020 1:13 PM CDT aHnnah Reagan RN Active * Do you have [...] st Contact Info) Description 08/03/2024 2:00 PM SOFTWARE BUSINESS ANALYST Appointment [facility] [address] [place] [address] Josué Cook MD [address] [address] documented as of this encounter Goals Goal Patient Goal Type Associated Problems Recent Progress Patient-Stated? Author HOME TO [facility] Vannessa Light RN documented as of this encounter Visit Diagnoses Not on filedocumented in this encounter Additional Health Concerns Assessment Noted Time PHQ-9 Depression Total Score: 0 07/06/20 21 4:06 PM SOFTWARE BUSINESS ANALYST documented as of this encounter Care Teams Corporate Planner Relationship Specialty Start Date End Date Servando Torre MD [address] [place] [address] [address] [place] [address] PCP - General FAMILY PRACTICE 07/17/22 documented as of this encounter
--- OUTSIDE RECORDS SUMMARY | 2024-07-15 19:45 | XMS_ITS | Encounter Summary ---
Author Organization [facility] Address [address] [facility] [place] [address] [place] [address] Care Team Providers Care Sales Support Administrator Name Role Phone Servando Torre MD Primary Care Provider [phone] Reason for Visit * Treatment/Therapy Plan Authorization (Routine) - Authorized Specialty Diagnoses / Procedures Referred By Angel braswell Referred To Contact Diagnoses Chronic ulcerative colitis, unspecified complication ([facility]/HCC HHS/HCC) Abnormal liver function tests Procedures VEDOLIZUMAB, INJECTION [facility] [address] [place] [address] Phone: tel: [facility] [address] [place] [address] Phone: tel: Referral ID Status Reason Start Date Expiration Date Visits Requested Visits Authorized [id number] Authorized Medication 05/01/2023 07/27/2024 99 99 Encounter Details Date Type Department Care Team (Latest Contact Info) Description 08/11/2023 2:52 PM ARMATURE TESTER - 08/11/2023 2:55 PM ARMATURE TESTER Hospital Encounter [facility] [address] [place], [place] [id number] Josué Cook MD [address] [facility] [address] [place] [address] Discharge Disposition: Home or Self Care (Routine [...] Comments Blood Pressure 132/57 08/11/2023 2:25 PM ARMATURE TESTER Pulse 63 08/11/2023 2:25 PM ARMATURE TESTER Temperature 36.5 ??C (97.7 ??F) 08/11/2023 1:15 PM CS T Respiratory Rate 16 08/11/2023 2:25 PM ARMATURE TESTER Oxygen Saturation 97% 08/11/2023 1:15 PM ARMATURE TESTER Inhaled Oxygen Concentration - - Weight - [...] st Contact Info) Description 08/03/2024 2:00 PM ARMATURE TESTER Appointment [facility] [address] [address] Josué Cook MD [address] [facility] [address] [place] [address] documented as of this encounter Goals Goal Patient Goal Type Associated Problems Recent Progress Patient-Stated? Author HOME TO [facility]IV[facility] General No Vannessa Blackwell RN documented as of this encounter Procedures Procedure Name Priority Date/Time Associated Diagnosis Comments COMPREHENSIVE METABOLIC PANEL Routine 08/11/2023 1:25 PM ARMATURE TESTER Chronic ulcerative colitis, unspecified complication (CMS/HCC HHS/HCC) Abnormal liver function tests C-REACTIVE PROTEIN Routine 08/11/2023 1: 25 PM ARMATURE TESTER Chronic ulcerative colitis, unspecified complication (CMS/HCC HHS/HCC) Abnormal liver function tests CBC W/DIFF AUTOMATED Routine 08/11/2023 1:25 PM ARMATURE TESTER Chronic ulcerative colitis, unspecified complication (CMS/HCC HHS/HCC) Abnormal liver function tests documented in this encounter Results * C-REACTIVE PROTEIN (08/11/2023 1:25 PM ARMATURE TESTER) [facility] C-REACTIVE PROTEIN <0.29 <0.29 mg/dL 08/11/2023 7:38 PM ARMATURE TESTER [facility] 08/11/2023 1:25 PM ARMATURE TESTER Josué Cook MD LABORATORY Final Result [facility] [address] [place] [address], * (ABNORMAL) CBC W/DIFF AUTOMATED (08/11/2023 1:25 PM ARMATURE TESTER) [facility] WBC 8.20 4.4 - 11.0 x10'3/uL 08/11/2023 1:47 PM ARMATURE TESTER [facility] RBC 4.34(L) 4.50 - 5.10 x10'6/uL 08/11/2023 1:47 PM ARMATURE TESTER [facility] HGB 13.5 12.3 - 15.3 G/DL 08/11/2023 1:47 PM ARMATURE TESTER [facility] HCT 41.3 35.9 - 44.6 % 08/11/2023 1:47 PM ARMATURE TESTER [facility] MCV 95.2 80.0 - 96.0 FL 08/11/2023 1:47 PM ARMATURE TESTER [facility] MCH 31.1(H) 25.3 - 30.9 PG 08/11/2023 1:47 PM [facility] MCHC 32.7 31.0 - 34.1 G/DL 08/11/2023 1:47 PM [facility] RDW 13.7 12.4 - 15.1 % 08/11/2023 1:47 PM [facility] PLT 228 151 - 353 x10'3/uL 08/11/2023 1:47 PM [facility] MPV 9.1(L) 9.6 - 12.0 FL 08/11/2023 1:47 PM [facility] RBC MORPHOLOGY NORMAL 08/11/2023 1:47 PM [facility] PLT MORPH. NORMAL 08/11/2023 1:47 PM [facility] WBC MORPHOLOGY NORMAL 08/11/2023 1:47 PM [facility] LYMPHOCYTES % 21.7 15.8 - 45.0 % 08/11/2023 1:47 PM [facility] NEUTROPHILS % 63.0 42.1 - 71.9 % 08/11/2023 1:47 PM [facility] MONOCYTES % 9.3 5.7 - 12.5 % 08/11/2023 1:47 PM [facility] EOSINOPHILS 5.1 0.0 - 5.6 % 08/11/2023 1:47 PM [facility] BASOPHILS 0.5 0.0 - 1.3 % 08/11/2023 1:47 PM [facility] ABS. NEUTROPHILS 5.17 1.40 - 6.00 x10'3/uL 08/11/2023 1:47 PM [facility] IMMATURE GRANS % 0.4 0.0 - 0.5 % 08/11/2023 1:47 PM [facility] ABS. LYMPHOCYTES 1.78 0.80 - 4.70 x10'3/uL 08/11/2023 1:47 PM [facility] 08/11/2023 1:25 PM ARMATURE TESTER Josué Cook MD LABORATORY Final Result [facility] [address] [place] [address], [place] [phone] * (ABNORMAL) COMPREHENSIVE METABOLIC PANEL (08/11/2023 1:25 PM ARMATURE TESTER) GLUCOSE 121(H) 70 - 99 MG/DL 08/11/2023 2:06 PM [facility] BUN 18 7 - 18 MG/DL 08/11/2023 2:06 PM [facility] CREATININE S/P/B 1.07(H) 0.55 - 1.02 MG/DL 08/11/2023 2:06 PM [facility] SODIUM S/P/B 137 136 - 145 MMOL/L 08/11/2023 2:06 PM [facility] POTASSIUM S/P/B 3.8 3.5 - 5.1 MMOL/L 08/11/2023 2:06 PM [facility] CHLORIDE S/P/B 101 100 - 108 MMOL/L 08/11/2023 2:06 PM [facility] CO2 28.4 21 - 32 MMOL/L 08/11/2023 2:06 PM [facility] CALCIUM S/P/B 9.8 8.5 - 10.1 MG/DL 08/11/2023 2:06 PM [facility] BILIRUBIN TOTAL S/P/B 0.4 0.2 - 1.2 MG/DL 08/11/2023 2:06 PM [facility] TOTAL PROTEIN S/P/B 7.1 6.4 - 8.2 G/DL 08/11/2023 2:06 PM [facility] ALBUMIN S/P/B 3.3(L) 3.4 - 5.0 G/DL 08/11/2023 2:06 PM [facility] AST 17 15 - 37 U/L 08/11/2023 2:06 PM [facility] ALT 27 14 - 55 U/L 08/11/2023 2:06 PM [facility] ALKALINE PHOSPHATASE S/P/B 104 50 - 136 U/L 08/11/2023 2:06 PM [facility] ANION GAP 7.6 5 - 15 MMOL/L 08/11/2023 2:06 PM [facility] BUN CREATININE RATIO 16.8 6 - 26 08/11/2023 2:06 PM [facility] A/G RATIO 0.9(L) 1.0 - 2.0 RATIO 08/11/2023 2:06 PM [facility] GFR ESTIMATE 53(L) >90 ML/MIN/1.7 3 M2 08/11/2023 2:06 PM [facility] Comment: NOTE: eGFR is not calculated for patients <18 years of age. This is an estimated GFR calculation using the new CKD EPI creatinine equation without race and so does not require a correction factor for race. This estimated GFR should not be used for calculating drug doses. 08/11/2023 1:25 PM ARMATURE TESTER Josué Cook MD LABORATORY Final Result [facility] [address] [place] [address], documented in this encounter Visit Diagnoses Diagnosis [...] liver function tests Given 08/11/2023 1:18 PM ARMATURE TESTER 650 mg diphenhydrAMINE (BENADRYL) capsule 25 mg 25 mg, Oral, Once as needed, Other, premed, 1 dose, Starting on Fri08/11/23 at 1312, Until Fri08/11/23 at 1318Indications:Chronic ulcerative colitis, unspecified complication (CMS/HCC HHS/HCC),Abnormal liver function tests Given 08/11/2023 1:18 PM ARMATURE TESTER 25 mg diphenhydrAMINE (BENADRYL) injection 25 mg [...] function tests New Bag 08/11/2023 1:46 PM ARMATURE TESTER 300 mg 500 mL/hr documented in this encounter Active and Recently Administered Medications Times are shown in ARMATURE TESTER. Scheduled Medication Order 08/09/2023 08/10/2023 08/11/2023 vedolizumab [...] 1346 (New Bag - Prov ider: Varsha hCristie RN)1430 (Infusion Stop Time - Provider: Varsha [...] Depression Total Score: 0 07/06/20 4:06 PM ARMATURE TESTER documented as of this encounter Care Teams Sales Support Administrator Relationship Specialty Start Date End Date Servando Torre MD [address] [place] [address] [address] [place] [address] PCP - General FAMILY PRACTICE 07/17/22 documented as of this encounter
--- OUTSIDE RECORDS SUMMARY | 2024-07-15 19:45 | XMS_ITS | Encounter Summary ---
Author Organization [facility] Address [address] [facility] [place] [address] [place] [address] Care Team Providers Care Barrel Filler Head Name Role Phone Jared Abrams MD Primary Care Provider [phone] Reason for Visit * Reason Comments Diarrhea Diarrhea off and on since since procedure in September. She goes about 5 to 6 times a day. Mesalamine does not seems to have made a difference. * Consultation/Treatment (Routine) - Closed Specialty Diagnoses / Procedures Referred By Angel braswell Referred To Contact GASTROENTEROLOGY Diagnoses FOLLOW UP Jared Abrams MD [facility] [place] [address] Phone: tel: fax: Vladimir Parsons MD [address] [address] Phone: tel: fax: Referral ID Status Reason Start Date Expiration Date Visits Re quested Visits Authorized [id number] Closed 07/07/2020 07/07/2022 100 100 Encounter Details Date Type Department Care Team (Latest Contact Info) Description 01/11/2022 1:00 PM CDT Office Visit [facility] [address] [phone] Vladimir Parsons MD [address] [address] Diarrhea (Diarrhea off and on [...] biopsies performed by Vladimir Parsons MD at [facility] OR ??? PARTIAL HIP REPLACEMENT Left ??? SIGMOIDOSCOPY N/A 10/05/2021 Sigmoidoscopy w/ Biopsy performed by Vladimir Parsons MD at [facility] OR ??? TUBAL LIGATION PE: Filed [...] st Contact Info) Description 08/03/2024 2:00 PM EQUIPMENT CLEANER Appointment [facility] [address] [place], [place] [id number] Josué Cook MD [address] [facility] 8 [place] [address] documented as of this encounter Goals Goal Patient Goal Type Associated Problems Recent Progress Patient-Stated? Author HOME TO [facility] Vannessa Light RN documented as of this encounter Results * QUANTIFERON-TB GOLD PLUS, 4T (01/17/2022 9:57 AM CDT) Pathologist [facility] NIL (TB) 0.02 01/22/2022 2:30 PM CDT [facility] MITOGEN NIL >10.00 01/22/2022 2:30 PM CDT [facility] TB1 AG MINUS NIL 0.01 01/22/2022 2:30 PM CDT [facility] TB2 AG MINUS NIL 0.01 01/22/2022 2:30 PM CDT [facility] 01/17/2022 9:57 AM CDT us Vladimir Parsons MD LABORATORY Final Result [facility] [address] [place] [address], [place] [phone] * HEPATITIS PANEL,ACUTE (01/17/2022 9:57 AM CDT) HEPATITIS B SURFACE AG NON-REACTI VE NON-REACTI VE 01/17/2022 3:46 PM CDT [facility] HEP B CORE IGM NON-REACTI VE NON-REACTI VE 01/17/2022 7:25 PM CDT [facility] HAV IGM NON-REACTI VE NON-REACTI VE 01/17/2022 4:06 PM CDT [facility] HEPATITIS C AB NON-REACTI VE NON-REACTI VE 01/17/2022 4:05 PM CDT [facility] 01/17/2022 9:57 AM CDT us Vladimir Parsons MD LABORATORY Final Result [facility] [address] [place] [id number], * TPMT ACTIVITY (01/17/2022 9:57 AM CDT) TPMT ACTIVITY 13 01/24/2022 12:46 AM CDT [employer] [facility] Comment: Units: ??nmol/hr/mL RBC Reference Range for TPMT Activity: ??>12 ? Normal 4-12 ? Heterozygote or low metabolizer ?? <4 ? Homozygote Deficient Range This test was developed and its analytical performance characteristics have been determined by [facility]. It has not been cleared or approved by FDA. This assay has been validated pursuant to the CLIA regulations and is used for clinical purposes. Test performed by [facility] ? [address], ? [place] [address] ? Math Coach: Lillian Duong MD,PHD,JOVANY Test Reported by Sierra Nelson [facility], [address] [place], [place] Gamal Gao M.D., Ph.D., Director of Laboratories , [place] [id number] 01/17/2022 9:57 AM CDT us Vladimir Parsons MD LABORATORY Final Result [facility] [address] [place] [address], documented in this encounter Visit Diagnoses Diagnosis UC (ulcerative colitis confined to rectum) ([facility])- Primary Ulcerative (chronic) proctitis Diarrhea, unspecified type documented in this encounter Additional Health Concerns Assessment Noted Time PHQ-9 Depression Total Score: 0 07/06/20 21 4:06 PM EQUIPMENT CLEANER documented as of this encounter Care Teams Barrel Filler Head Relationship Specialty Start Date End Date Jared Abrams MD PCP - General 08/28/11 07/16/22 documented as of this encounter
--- OUTSIDE RECORDS SUMMARY | 2024-07-15 19:45 | XMS_ITS | Encounter Summary ---
Author Organization [facility] Address [address] [place] [address] [place] [address] Care Team Providers Care Applications Administrator Name Role Phone Jared Abrams MD Primary Care Provider [phone] Reason for Visit * Reason Onset Date Comments Prior Authorization 01/25/2022 Encounter Details Date Type Department Care Team (Late st Contact Info) Description 01/25/2022 Telephone [facility] Multispecialty Care - [facility] [address] [facility], [address] [place] [phone] Vladimir Parsons MD [address] [facility] [address] [place] [address] Prior Authorization Social History Tobacco Use Types [...] auth has been initiated per Jody at [facility] we will receive a fax decision [...] the Azathioprine 50mg script. option #3, phone [phone] documented in this encounter Plan of Treatment Upcoming Encounters Date Type Department Care Team (Late st Contact Info) Description 08/03/2024 2:00 PM HAND PLUG SHAPER Appointment [facility] [address] [place] [address] Josué Cook MD [facility] [address] [address] documented as of this encounter Goals Goal Patient Goal Type Associated Problems Recent Progress Patient-Stated? Author HOME TO [facility] General No Vannessa Blackwell RN documented as of this encounter Visit Diagnoses Not on filedocumented in this encounter Additional Health Concerns Assessment Noted Time PHQ-9 Depression Total Score: 0 07/06/20 21 4:06 PM HAND PLUG SHAPER documented as of this encounter Care Teams Applications Administrator Relationship Specialty Start Date End Date Jared Abrams MD PCP - General 08/28/11 07/16/22 documented as of this encounter
--- OUTSIDE RECORDS SUMMARY | 2024-07-15 19:45 | XMS_ITS | Encounter Summary ---
Author Organization [facility] Address [address] [place] [address] [place] [address] Care Team Providers Care Drying Rack Changer Name Role Phone Jared Abrams MD Primary Care Provider [phone] Reason for Visit * Reason Onset Date Comments Medication Information 04/25/2022 Medication Problem 04/25/2022 Encounter Details Date Type Department Care Team (Late st Contact Info) Description 04/25/2022 Telephone [facility] Multispecialty Care - [facility] [address] [facility], [address] [place] [address] lVadimir Parsons MD [address] [place] [address] [address] [place] [address] Medication Information; Medication Problem Social [...] - 05/01/2022 11:47 AM CDT Evelyne with [facility] has requested a call from someone regarding the Azathioprine prescription. Shestates the directions they received still are not accurate. It states to dispense 1 50mg tab daily and then states 100mg daily on the script as well. She says they have been attempting to correct thescript for two weeks now and would rather speak directly to someone to resolve. [phone] * Liu Caballero NP - 04/26/2022 2:27 PM CDTAddended by: LIU CABALLERO on: 04/26/2022 02:27 PM Modules accepted: Orders * Liu Caballero NP - 04/26/2022 2:27 PM CDT Resent correct prescription * Kimberley Pang - 04/26/2022 12:58 PM CDT Spoke with pharmacist prescription quantity does not match up with directions. * Laya Gaxiola - 04/25/2022 3:08 PM CDT Evelyne from [facility] pharmacy called and stated that she is needing clarification on the Pt Azathioprine prescription. Please give Evelyne a call back to discuss [phone] documented in this encounter Plan of Treatment Upcoming Encounters Date Type Department Care Team (Late st Contact Info) Description 08/03/2024 2:00 PM INSTRUCTIONAL SUPPORT SERVICES DIRECTOR Appointment [facility] [address] [place] [address] Josué Cook MD [address] [facility] [address] [place] [address] documented as of this encounter Goals Goal Patient Goal Type Associated Problems Recent Progress Patient-Stated? Author HOME TO [facility] Vannessa Light RN documented as of this encounter Visit Diagnoses Diagnosis Colitis Other and unspecified noninfectious gastroenteritis and colitis documented in this encounter Additional Health Concerns Assessment Noted Time PHQ-9 Depression Total Score: 0 07/06/20 21 4:06 PM INSTRUCTIONAL SUPPORT SERVICES DIRECTOR documented as of this encounter Care Teams Drying Rack Changer Relationship Specialty Start Date End Date Jaerd Abrams MD PCP - General 08/28/11 07/16/22 documented as of this encounter
--- OUTSIDE RECORDS SUMMARY | 2024-07-15 19:45 | XMS_ITS | Encounter Summary ---
Author Organization [facility] Address [address] [place] [address] [place] [address] Care Team Providers Care Body And Frame Technician Name Role Phone Servando Torre MD Primary Care Provider [phone] Reason for Visit * Treatment/Therapy Plan Authorization (Routine) - Authorized Specialty Diagnoses / Procedures Referred By Angel braswell Referred To Contact Diagnoses Chronic ulcerative colitis, unspecified complication ([facility]/HCC HHS/HCC) Abnormal liver function tests Procedures VEDOLIZUMAB, INJECTION [facility] [address] [place] [address] Phone: tel: [facility] [address] [place] [address] Phone: tel: Referral ID Status Reason Start Date Expiration Date Visits Requested Visits Authorized [id number] Authorized Medication 05/01/2023 07/27/2024 99 99 Encounter Details Date Type Department Care Team (Latest Contact Info) Description 06/10/2023 1:35 PM GINNING OPERATOR - 06/10/2023 2:55 PM GINNING OPERATOR Hospital Encounter [facility] [address] [place] [address] Josué Cook MD [address] [facility] [address] [place] [address] Discharge Disposition: Home or Self Care (Routine [...] Comments Blood Pressure 162/78 06/10/2023 1:45 PM GINNING OPERATOR Pulse - - Temperature - - Respiratory Rate - - Oxygen Saturation 96% 06/10/2023 2:12 PM GINNING OPERATOR Inhaled Oxygen Concentration - - Weight - [...] , monitored for 30 mins post infusion ING OPERATOR documented in this encounter Plan of Treatment Upcoming Encounters Date Type Department Care Team (Late st Contact Info) Description 08/03/2024 2:00 PM GINNING OPERATOR Appointment [facility] [id number] [place] [address] [id number] Josué Cook MD [address] [address] documented as of this encounter Goals Goal Patient Goal Type Associated Problems Recent Progress Patient-Stated? Author HOME TO [facility] Vannessa Light RN documented as of this encounter Procedures Procedure Name Priority Date/Time Associated Diagnosis Comments HEPATITIS E ANTIBODY IGG Routine 06/10/2023 2:30 PM GINNING OPERATOR Abnormal liver function tests Chronic ulcerative colitis, unspecified complication (CMS/HCC HHS/HCC) HEPATITIS B POST-VACCINE ANTIBODY Routine 06/10/2023 2:30 PM GINNING OPERATOR Abnormal liver function tests Chronic ulcerative colitis, unspecified complication (CMS/HCC HHS/HCC) TBGOLD-TUBERCULOSIS TST CELL MEDIATED IMMUNITY Routine 06/10/2023 2:30 PM GINNING OPERATOR Abnormal liver function tests Chronic ulcerative colitis, unspecified complication (CMS/HCC HHS/HCC) PROMETHEUS THIOPURINE METABOLITES Routine 06/10/2023 2:30 PM GINNING OPERATOR Abnormal liver function tests Chronic ulcerative colitis, unspecified complication (CMS/HCC HHS/HCC) COMPREHENSIVE METABOLIC PANEL Routine 06/10/2023 2:30 PM GINNING OPERATOR Abnormal liver function tests Chronic ulcerative colitis, unspecified complication (CMS/HCC HHS/HCC) HEPATITIS B SURFACE AG, EIA Routine 06/10/2023 2:30 PM GINNING OPERATOR Abnormal liver function tests Chronic ulcerative colitis, unspecified complication (CMS/HCC HHS/HCC) HEPATITIS B CORE AB IGM Routine 06/10/2023 2:30 PM GINNING OPERATOR Abnormal liver function tests Chronic ulcerative colitis, unspecified complication (CMS/HCC HHS/HCC) C-REACTIVE PROTEIN Routine 06/10/2023 2: 30 PM GINNING OPERATOR Abnormal liver function tests Chronic ulcerative colitis, unspecified complication (CMS/HCC HHS/HCC) CBC W/DIFF AUTOMATED Routine 06/10/2023 2:30 PM GINNING OPERATOR Abnormal liver function tests Chronic ulcerative colitis, unspecified complication (CMS/HCC HHS/HCC) documented in this encounter Results * C-REACTIVE PROTEIN (06/10/2023 2:30 PM GINNING OPERATOR) C-REACTIVE PROTEIN <0.29 <0.29 mg/dL 06/10/2023 7:41 PM GINNING OPERATOR [facility] 06/10/2023 2:30 PM GINNING OPERATOR Josué Cook MD LABORATORY Final Result [facility] [address] [place] [address], * (ABNORMAL) CBC W/DIFF AUTOMATED (06/10/2023 2:30 PM GINNING OPERATOR) WBC 6.74 4.4 - 11.0 x10'3/uL 06/10/2023 3:16 PM [facility] RBC 4.08(L) 4.50 - 5.10 x10'6/uL 06/10/2023 3:16 PM [facility] HGB 13.0 12.3 - 15.3 G/DL 06/10/2023 3:16 PM [facility] HCT 39.3 35.9 - 44.6 % 06/10/2023 3:16 PM [facility] MCV 96.3(H) 80.0 - 96.0 FL 06/10/2023 3:16 PM [facility] MCH 31.9(H) 25.3 - 30.9 PG 06/10/2023 3:16 PM GINNING OPERATOR [facility] MCHC 33.1 31.0 - 34.1 G/DL 06/10/2023 3:16 PM [facility] RDW 14.3 12.4 - 15.1 % 06/10/2023 3:16 PM [facility] PLT 255 151 - 353 x10'3/uL 06/10/2023 3:16 PM [facility] MPV 9.2(L) 9.6 - 12.0 FL 06/10/2023 3:16 PM [facility] RBC MORPHOLOGY NORMAL 06/10/2023 3:16 PM [facility] PLT MORPH. NORMAL 06/10/2023 3:16 PM [facility] WBC MORPHOLOGY NORMAL 06/10/2023 3:16 PM GINNING OPERATOR [facility] LYMPHOCYTES % 28.2 15.8 - 45.0 % 06/10/2023 3:16 PM [facility] NEUTROPHILS % 58.5 42.1 - 71.9 % 06/10/2023 3:16 PM [facility] MONOCYTES % 9.3 5.7 - 12.5 % 06/10/2023 3:16 PM [facility] EOSINOPHILS 3.0 0.0 - 5.6 % 06/10/2023 3:16 PM [facility] BASOPHILS 0.6 0.0 - 1.3 % 06/10/2023 3:16 PM [facility] ABS. NEUTROPHILS 3.94 1.40 - 6.00 x10'3/uL 06/10/2023 3:16 PM [facility] IMMATURE GRANS % 0.4 0.0 - 0.5 % 06/10/2023 3:16 PM [facility] ABS. LYMPHOCYTES 1.90 0.80 - 4.70 x10'3/uL 06/10/2023 3:16 PM [facility] 06/10/2023 2:30 PM GINNING OPERATOR us Josué Cook MD LABORATORY Final Result [facility] [address] [place] [address], [place] [phone] * (ABNORMAL) COMPREHENSIVE METABOLIC PANEL (06/10/2023 2:30 PM GINNING OPERATOR) [facility] GLUCOSE 101(H) 70 - 99 MG/DL 06/10/2023 3:15 PM [facility] BUN 14 7 - 18 MG/DL 06/10/2023 3:15 PM [facility] CREATININE S/P/B 0.92 0.55 - 1.02 MG/DL 06/10/2023 3:15 PM [facility] SODIUM S/P/B 141 136 - 145 MMOL/L 06/10/2023 3:15 PM [facility] POTASSIUM S/P/B 4.2 3.5 - 5.1 MMOL/L 06/10/2023 3:15 PM [facility] CHLORIDE S/P/B 104 100 - 108 MMOL/L 06/10/2023 3:15 PM [facility] CO2 32.4(H) 21 - 32 MMOL/L 06/10/2023 3:15 PM [facility] CALCIUM S/P/B 9.7 8.5 - 10.1 MG/DL 06/10/2023 3:15 PM [facility] BILIRUBIN TOTAL S/P/B 0.7 0.2 - 1.2 MG/DL 06/10/2023 3:15 PM [facility] TOTAL PROTEIN S/P/B 6.7 6.4 - 8.2 G/DL 06/10/2023 3:15 PM [facility] ALBUMIN S/P/B 3.4 3.4 - 5.0 G/DL 06/10/2023 3:15 PM [facility] AST 22 15 - 37 U/L 06/10/2023 3:15 PM [facility] ALT 28 14 - 55 U/L 06/10/2023 3:15 PM GINNING OPERATOR [facility] ALKALINE PHOSPHATASE S/P/B 63 50 - 136 U/L 06/10/2023 3:15 PM GINNING OPERATOR [facility] ANION GAP 4.6(L) 5 - 15 MMOL/L 06/10/2023 3:15 PM GINNING OPERATOR [facility] BUN CREATININE RATIO 15.2 6 - 26 06/10/2023 3:15 PM GINNING OPERATOR [facility] A/G RATIO 1.0 1.0 - 2.0 RATIO 06/10/2023 3:15 PM GINNING OPERATOR [facility] GFR ESTIMATE 63(L) >90 ML/MIN/1.7 3 M2 06/10/2023 3:15 PM GINNING OPERATOR [facility] Comment: NOTE: eGFR is not calculated for patients <18 years of age. This is an estimated GFR calculation using the new CKD EPI creatinine equation without race and so does not require a correction factor for race. This estimated GFR should not be used for calculating drug doses. 06/10/2023 2:30 PM GINNING OPERATOR Josué Cook MD LABORATORY Final Result [facility] [address] [place] [address], * HEPATITIS E ANTIBODY IGG (06/10/2023 2:30 PM GINNING OPERATOR) HEPATITIS E IGG NOT DETECTED 023 8:39 PM GINNING OPERATOR [facility] Comment: REFERENCE RANGE: NOT DETECTED [...] analytical performance characteristics have been determined by [facility]. It has not been cleared or approved by FDA. This assay has been validated pursuant to the CLIA regulations and is used for clinical purposes. Test performed by [employer] ? [address], ? [place] [address] ? Rush Seater: Lillian Duong MD,PHD,JOVANY Test Reported by [facility], [facility], [address] [place], [place] Gamal Gao M.D., Ph.D., Director of Laboratories , [facility] [id number] 06/10/2023 2:30 PM GINNING OPERATOR Josué Cook MD LABORATORY Final Result Performing Organization Address City/[facility]/ZIP Co de Phone Number [facility] [place] [id number] [place], [place] , [place] [phone] * HEPATITIS B CORE AB IGM (06/10/2023 2:30 PM GINNING OPERATOR) Pathologist [facility] HEP B CORE IGM NON-REACTI VE NON-REACTI VE 06/10/2023 8:39 PM GINNING OPERATOR [facility] 06/10/2023 2:30 PM GINNING OPERATOR Josué Cook MD LABORATORY Final Result [facility] [address] [place] [address], [place] [phone] * HEPATITIS B SURFACE AG, EIA (06/10/2023 2:30 PM GINNING OPERATOR) HEPATITIS B SURFACE AG NON-REACTI VE NON-REACTI VE 06/10/2023 8:07 PM GINNING OPERATOR [facility] 06/10/2023 2:30 PM GINNING OPERATOR us Josué Cook MD LABORATORY Final Result Performing Organization Address [facility] Co de Phone Number [facility] [address] [place] [address], [place] [phone] * TBGOLD-TUBERCULOSIS TST CELL MEDIATED IMMUNITY (06/10/2023 2:30 PM GINNING OPERATOR) TB1 AG MINUS NIL 0.06 IU/ML 06/11/20 1:11 PM GINNING OPERATOR [facility] TB2 AG MINUS NIL 0.08 IU/ML 06/11/20 1:11 PM GINNING OPERATOR [facility] TB QUANTIFERON NEGATIVE NEGATIVE 06/11/2023 1:11 PM GINNING OPERATOR [facility] TB INTERPRETATION M. tuberculosis infection unlikely but cannot be excluded especially when any illness is consistent with TB disease and/or likelihood of progression to disease is increased. ?? In patients at high risk to M. tuberculosis infection, a second test should be considered. 06/11/2023 1:11 PM GINNING OPERATOR [facility] 06/10/2023 2:30 PM GINNING OPERATOR us Josué Cook MD LABORATORY Final Result Performing Organization Address City/[facility]/ZIP Co de Phone Number [facility] [address] [place] [address], [place] [phone] * HEPATITIS B POST-VACCINE ANTIBODY (06/10/2023 2:30 PM GINNING OPERATOR) HEP B SURFACE AB <3.10 mIU/mL 06/10/2023 8:52 PM GINNING OPERATOR [facility] Comment: REFERENCE RANGE >=12.00 PATIENT DOES NOT HAVE IMMUNITY TO HEPATITIS B VIRUS 06/10/2023 2:30 PM GINNING OPERATOR Josué Cook MD LABORATORY Final Result [facility] [address] [place] [address], [place] [phone] * (ABNORMAL) PROMETHEUS THIOPURINE METABOLITES (06/10/2023 2:30 PM GINNING OPERATOR) 6-TG 452(H) 235 - 400 06/14/2023 3:36 PM GINNING OPERATOR [facility] Comment: Units: ??pmol/8x10(8)RBC This test was developed and its analytical performance characteristics have been determined by [facility]. It has not been cleared or approved by the FDA. This assay has been validated pursuant to the CLIA regulations and is used for clinical purposes. 6-MMP 8,511(H) <5,700 06/14/2023 3:36 PM GINNING OPERATOR [facility] Comment: Units: ??pmol/8x10(8)RBC These results [...] analytical performance characteristics have been determined by [facility]. It has not been cleared or approved by the FDA. This assay has been validated pursuant to the CLIA regulations and is used for clinical purposes. Test performed by [facility] [employer] ? [address] [facility], ? [place] [address] ? Rush Seater: NICOLA JOHNSON M.D. Test Reported by [facility], [facility], [address] [place], [place] Gamal Gao M.D., Ph.D., Director of Laboratories , [place] [id number] 06/10/2023 2:30 PM GINNING OPERATOR Josué Cook MD LABORATORY Final Result [facility] [address] [place], [place] , [place] [phone] documented in this encounter Visit Diagnoses Diagnosis [...] complication (CMS/HCC HHS/HCC) Given 06/10/2023 2:12 PM GINNING OPERATOR 650 mg diphenhydrAMINE (BENADRYL) capsule 25 mg 25 mg, Oral, Once as needed, Other, premed, 1 dose, Starting on Fri06/10/23 at 1337, Until Fri06/10/23 at 1413Indications:Abnormal liver function tests,Chronic ulcerative colitis, unspecified complication (CMS/HCC HHS/HCC) Given 06/10/2023 2:13 PM GINNING OPERATOR 25 mg diphenhydrAMINE (BENADRYL) injection 25 mg 25 mg, Intravenous, Once as needed, Severe hypersensitivity reaction (dyspnea, bronchospasm, urticaria, flushing, rash, and increased heart rate), Starting on Fri06/10/23 at 1337, Until Fri06/10/23 at 1803, For IV administration, give no faster than 25 mg/min. For severe hypersensitivity reaction (dyspnea, bronchospasm, urticaria, flushing, rash, and increased heart rate).Indications:Abnormal liver function tests,Chronic ulcerative colitis, unspecified complication ([facility] HHS/HCC) EPINEPHrine PF (ADRENALIN) 1 mg/mL injection 0.3 mg 0.3 mg, Intramuscular, Every 5 min PRN, Other, Severe hypersensitivity reaction (dyspnea, bronchospasm, urticaria, flushing, rash, and increased heart rate), 3 doses, Starting on Fri06/10/23 at 1337, Until Fri06/10/23 at 1803, Severe hypersensitivity reaction (dyspnea, bronchospasm, urticaria, flushing, rash, and increased heart rate)Indications:Abnormal liver function tests,Chronic ulcerative colitis, unspecified complication ([facility] HHS/HCC) hydrocortisone sodium succinate (Solu-CORTEF) injection 100 mg 100 mg, Intravenous, Once as needed, Severe hypersensitivity reaction (dyspnea, bronchospasm, urticaria, flushing, rash, and increased heart rate), Starting on Fri06/10/23 at 1337, Until Fri06/10/23 at 1803, Administer over 1-2 minutes. For severe hypersensitivity reaction (dyspnea, bronchospasm, urticaria, flushing, rash, and increased heart rate).Indications:Abnormal liver function tests,Chronic ulcerative colitis, unspecified complication ([facility]/HCC HHS/HCC) vedolizumab (ENTYVIO) 300 mg in sodium [...] liver function tests,Chronic ulcerative colitis, unspecified complication ([facility] HHS/HCC) New Bag 06/10/2023 2:45 PM GINNING OPERATOR 300 mg 500 mL/hr documented in this encounter Active and Recently Administered Medications Times are shown in GINNING OPERATOR. Scheduled Medication Order 06/08/2023 06/09/2023 06/10/2023 vedolizumab [...] Depression Total Score: 0 07/06/20 4:06 PM GINNING OPERATOR documented as of this encounter Care Teams Body And Frame Technician Relationship Specialty Start Date End Date Servando Torre MD [address] [place] [address] [address] [place] [address] PCP - General FAMILY PRACTICE 07/17/22 documented as of this encounter
--- OUTSIDE RECORDS SUMMARY | 2024-07-15 19:45 | XMS_ITS | Encounter Summary ---
Author Organization [facility] Address [address] [facility] [place] [address] [place] [address] Care Team Providers Care Rubber Press Tender Name Role Phone Servando Torre MD Primary Care Provider Encounter Details Date Type Department Care Team (Late st Contact Info) Description 05/01/2023 Therapy Plan [facility] [address] [place] [address] Josué Cook MD [address] [place] [id number] Social History Tobacco Use Types Packs/Day Years [...] st Contact Info) Description 08/03/2024 2:00 PM TAPPING MACHINE OPERATOR AUTOMATIC Appointment [address] [phone] Josué Cook MD [address] [address] documented as of this encounter Goals Goal Patient Goal Type Associated Problems Recent Progress Patient-Stated? Author HOME TO [facility] No Vannessa Blackwell RN documented as of this encounter Visit Diagnoses Diagnosis Chronic ulcerative colitis, unspecified complication ([facility]/HCC [facility]/HCC)- Primary Abnormal liver function tests Other abnormal blood chemistry documented in this encounter Additional Health Concerns Assessment Noted Time PHQ-9 Depression Total Score: 0 07/06/20 21 4:06 PM TAPPING MACHINE OPERATOR AUTOMATIC documented as of this encounter Care Teams Rubber Press Tender Relationship Specialty Start Date End Date Servando Torre MD [address] [place] [address] [address] [place] [address] PCP - General FAMILY PRACTICE 07/17/22 documented as of this encounter
--- OUTSIDE RECORDS SUMMARY | 2024-07-15 19:45 | XMS_ITS | Encounter Summary ---
Author Organization [facility] Address [address] [facility] [place] [address] [place] [address] Care Team Providers Care Brazer Controlled Atmospheric Furnace Name Role Phone Jared Abrams MD Primary Care Provider [phone] Encounter Details Date Type Department Care Team [...] st Contact Info) Description 08/03/2024 2:00 PM TITRATOR Appointment [address] [address] Josué Cook MD [address] [address] documented as of this encounter Goals Goal Patient Goal Type Associated Problems Recent Progress Patient-Stated? Author HOME TO [facility] General No Vannessa Blackwell RN documented as of this encounter Visit Diagnoses Not on filedocumented in this encounter Additional Health Concerns Assessment Noted Time PHQ-9 Depression Total Score: 0 07/06/20 21 4:06 PM TITRATOR documented as of this encounter Care Teams Brazer Controlled Atmospheric Furnace Relationship Specialty Start Date End Date Jared Abrams MD PCP - General 08/28/11 07/16/22 documented as of this encounter
--- OUTSIDE RECORDS SUMMARY | 2024-07-15 19:45 | XMS_ITS | Encounter Summary ---
Author Organization [facility] Address [address] [facility] [place] [address] [place] [address] Care Team Providers Care Wire Mesh Filter Fabricator Name Role Phone Servando Torre MD Primary Care Provider [phone] Reason for Visit * Treatment/Therapy Plan Authorization (Routine) - Closed Specialty Diagnoses / Procedures Referred By Angel braswell Referred To Contact Diagnoses Chronic ulcerative colitis, unspecified complication ([facility]/HCC [facility]) Procedures VEDOLIZUMAB, INJECTION [facility] [address] [place] [address] Phone: tel: [facility] [address] [place] [address] Phone: tel: Referral ID Status Reason Start Date Expiration Date Visits Re quested Visits Authorized [id number] Closed 06/18/2022 3 3 Encounter Details Date Type Department Care Team (Latest Contact Info) Description 02/12/2023 2:27 PM CDT - 02/12/2023 3:54 PM CDT Hospital Encounter [facility] [address] [place] [address] Mariela Denton MD [address] [place] [address] Discharge Disposition: Home or Self Care (Routine [...] Contact Info) Description 08/03/2024 2:00 PM COMMUNITY RELATIONS ADVISOR Appointment [facility] [address] [address] Josué Cook MD [address] [facility] [address] [place] [address] documented as of this encounter Goals Goal Patient Goal Type Associated Problems Recent Progress Patient-Stated? Author HOME TO [facility] General Vannessa Light RN documented as of this encounter Visit Diagnoses Diagnosis Chronic ulcerative colitis, unspecified complication ([facility]/HCC HHS/HCC)- Primary documented in this encounter Administered [...] increased heart rate)Indications:Chronic ulcerative colitis, unspecified complication ([facility]) vedolizumab (ENTYVIO) 300 mg in sodium chloride [...] NS after completion.Indications:Chronic ulcerative colitis, unspecified complication ([facility]) New Bag 02/12/2023 3:08 PM CDT 300 [...] Depression Total Score: 0 07/06/20 4:06 PM COMMUNITY RELATIONS ADVISOR documented as of this encounter Care Teams Wire Mesh Filter Fabricator Relationship Specialty Start Date End Date Servando Torre MD [address] [place] [address] [address] [place] [address] PCP - General FAMILY PRACTICE 07/17/22 documented as of this encounter
--- OUTSIDE RECORDS SUMMARY | 2024-07-15 19:45 | XMS_ITS | Encounter Summary ---
Author Organization [facility] Address [address] [facility] [place] [address] [place] [address] Care Team Providers Care Carbon Paper Interleafer Name Role Phone Servando Torre MD Primary Care Provider [phone] Encounter Details Date Type Department Care Team [...] Contact Info) Description 08/03/2024 2:00 PM FIELD HORTICULTURAL SPECIALTY GROWER Appointment [facility] [id number] [place] [address] Josué Cook MD [address] [address] documented as of this encounter Goals Goal Patient Goal Type Associated Problems Recent Progress Patient-Stated? Author HOME TO [facility] Vannessa Light RN documented as of this encounter Visit Diagnoses Not on filedocumented in this encounter Additional Health Concerns Assessment Noted Time PHQ-9 Depression Total Score: 0 07/06/20 21 4:06 PM FIELD HORTICULTURAL SPECIALTY GROWER documented as of this encounter Care Teams Carbon Paper Interleafer Relationship Specialty Start Date End Date Servando Torre MD [address] [place] [address] [address] [place] [address] PCP - General FAMILY PRACTICE 07/17/22 documented as of this encounter
--- OUTSIDE RECORDS SUMMARY | 2024-07-15 19:45 | XMS_ITS | Encounter Summary ---
Author Organization [facility] Address [address] [facility] [place] [address] [place] [address] Care Team Providers Care Retail Warehouse Supervisor Name Role Phone Servando Torre MD [...] Coronavirus/COVID-19? No / Unsure 07/17/2022 1:45 PM EBD TEACHER documented as of this encounter Functional [...] st Contact Info) Description 08/03/2024 2:00 PM EBD TEACHER Appointment [address] [address] Josué Cook MD [address] [address] documented as of this encounter Goals Goal Patient Goal Type Associated Problems Recent Progress Patient-Stated? Author HOME TO [facility]IV[facility] Vannessa Light RN documented as of this encounter Visit Diagnoses Not on filedocumented in this encounter Additional Health Concerns Assessment Noted Time PHQ-9 Depression Total Score: 0 07/06/20 21 4:06 PM EBD TEACHER documented as of this encounter Care Teams Retail Warehouse Supervisor Relationship Specialty Start Date End Date Servando Torre MD [address] [place] [address] [address] [place] [address] PCP - General FAMILY PRACTICE 07/17/22 documented as of this encounter
--- OUTSIDE RECORDS SUMMARY | 2024-07-15 19:45 | XMS_ITS | Encounter Summary ---
Author Organization [facility] Address [address] [place] [address] [place] [address] Care Team Providers Care Physician Asst Name Role Phone Servando Torre MD Primary Care Provider [phone] Encounter Details Date Type Department Care Team (Late st Contact Info) Description 07/19/2022 Orders Only [facility] [address] [place] [address] [address] [place] [address] Alen Corbett, DO [address] [address] Social History Tobacco Use Types Packs/Day Years [...] Coronavirus/COVID-19? No / Unsure 07/17/2022 1:45 PM UNEMPLOYMENT INSPECTOR documented as of this encounter Functional Status [...] st Contact Info) Description 08/03/2024 2:00 PM UNEMPLOYMENT INSPECTOR Appointment [address] [address] Josué Cook MD 49[address] [facility] 8 [place] [address] documented as of this encounter Goals Goal Patient Goal Type Associated Problems Recent Progress Patient-Stated? Author HOME TO [facility]IV[facility] General No Vannessa Blackwell RN documented as of this encounter Visit Diagnoses Not on filedocumented in this encounter Additional Health Concerns Assessment Noted Time PHQ-9 Depression Total Score: 0 07/06/20 21 4:06 PM UNEMPLOYMENT INSPECTOR documented as of this encounter Care Teams Physician Asst Relationship Specialty Start Date End Date Servando Torre MD 4 [facility] [address] [place] [address] PCP - General FAMILY PRACTICE 07/17/22 documented as of this encounter
--- OUTSIDE RECORDS SUMMARY | 2024-07-15 19:45 | XMS_ITS | Encounter Summary ---
Author Organization [facility] Address [address] [facility] [place] [address] [place] [address] Care Team Providers Care Dictating Machine Typist Name Role Phone Servando Torre MD Primary Care Provider Encounter Details Date Type Department Care Team (Late st Contact Info) Description 05/04/2023 Orders Only [facility] [address] [place] [address] Derick Martínez MD [address] [facility] 112 [place] [address] Social History Tobacco Use Types Packs/Day Years [...] st Contact Info) Description 08/03/2024 2:00 PM FINISHING WIRE SAWYER Appointment [address] [address] Josué Cook MD [address] [address] documented as of this encounter Goals Goal Patient Goal Type Associated Problems Recent Progress Patient-Stated? Author HOME TO [facility]DEP[facility]ENT LIV[facility] No Vannessa Blackwell RN documented as of this encounter Visit Diagnoses Not on filedocumented in this encounter Additional Health Concerns Assessment Noted Time PHQ-9 Depression Total Score: 0 07/06/20 4:06 PM FINISHING WIRE SAWYER documented as of this encounter Care Teams Dictating Machine Typist Relationship Specialty Start Date End Date Servando Torre MD [address] [place] [address] [address] [place] [address] PCP - General FAMILY PRACTICE 07/17/22 documented as of this encounter
--- OUTSIDE RECORDS SUMMARY | 2024-07-15 19:45 | XMS_ITS | Encounter Summary ---
Author Organization [facility] Address [address] [facility] [place] [address] [place] [address] Care Team Providers Care Lather Apprentice Name Role Phone Jared Abrams MD Primary Care Provider [phone] Reason for Visit * Reason Comments Follow Up On mesalamine also a zathioprine here for follow up states the new med isnt helping much * Consultation/Treatment (Routine) - Closed Specialty Diagnoses / Procedures Referred By Angel braswell Referred To Contact GASTROENTEROLOGY Diagnoses FU Procedures FOLLOW UP Jared Abrams MD [facility] [place] [address] Phone: tel: fax: Vladimir Parsons MD [address] [address] Phone: tel: fax: Referral ID Status Reason Start Date Expiration Date Visits Re quested Visits Authorized [id number] Closed 11/16/2020 07/06/2022 100 100 Encounter Details Date Type Department Care Team (Latest Contact Info) Description 04/19/2022 2:00 PM CDT Office Visit [facility] [address] [address] Vladimir Parsons MD [address] [address] Follow Up (On mesalamine also [...] Contact Info) Description 08/03/2024 2:00 PM SENIOR INFRASTRUCTURE ENGINEER Appointment [address] [address] Josué Cook MD [address] [address] documented as of this encounter Goals Goal Patient Goal Type Associated Problems Recent Progress Patient-Stated? Author HOME TO [facility]IV[facility] General Vannessa Light, RN documented as of this encounter Visit Diagnoses Diagnosis Colitis- Primary Other and unspecified noninfectious gastroenteritis and colitis documented in this encounter Additional Health Concerns Assessment Noted Time PHQ-9 Depression Total Score: 0 07/06/20 21 4:06 PM SENIOR INFRASTRUCTURE ENGINEER documented as of this encounter Care Teams Lather Apprentice Relationship Specialty Start Date End Date Jared Abrams MD PCP - General 08/28/11 07/16/22 documented as of this encounter
--- OUTSIDE RECORDS SUMMARY | 2024-07-15 19:45 | XMS_ITS | Encounter Summary ---
Author Organization [facility] Address [address] [place] [address] [place] [address] Care Team Providers Care Stone Paver Name Role Phone Servando Torre MD Primary Care Provider [phone] Reason for Visit * Treatment/Therapy Plan Authorization (Routine) - Authorized Specialty Diagnoses / Procedures Referred By Angel braswell Referred To Contact Diagnoses Chronic ulcerative colitis, unspecified complication ([facility]/HCC HHS/HCC) Abnormal liver function tests Procedures VEDOLIZUMAB, INJECTION [facility] [address] [place] [address] Phone: tel: [facility] [address] [place] [address] Phone: tel: Referral ID Status Reason Start Date Expiration Date Visits Requested Visits Authorized [id number] Authorized Medication 05/01/2023 07/27/2024 99 99 Encounter Details Date Type Department Care Team (Latest Contact Info) Description 10/07/2023 1:33 PM CDT - 10/07/2023 3:00 PM CDT Hospital Encounter [facility] [address] [place] [address] Josué Cook MD 4921 [facility] 8 [place] [address] Discharge Disposition: Home or Self Care (Routine [...] st Contact Info) Description 08/03/2024 2:00 PM WORKING MANAGER Appointment [address] [address] Josué Cook MD 4921 [facility] 8 [place] [address] documented as of this encounter Goals Goal [...] C-REACTIVE PROTEIN (10/07/2023 1:39 PM CDT) Pathologist [facility] C-REACTIVE PROTEIN <0.29 <0.29 mg/dL 10/07/2023 7:35 PM CDT [facility] 10/07/2023 1:39 PM CDT us Josué Cook MD LABORATORY Final Result [facility] 3 [place] [address], [place] [phone] * (ABNORMAL) CBC W/DIFF AUTOMATED (10/07/2023 1:39 PM CDT) Pathologist [facility] WBC 7.69 4.4 - 11.0 x10'3/uL 10/07/2023 1:59 PM CDT [facility] RBC 4.61 4.50 - 5.10 x10'6/uL 10/07/2023 1:59 PM CDT [facility] HGB 14.1 12.3 - 15.3 G/DL 10/07/2023 1:59 PM CDT [facility] HCT 43.3 35.9 - 44.6 % 10/07/2023 1:59 PM CDT [facility] MCV 93.9 80.0 - 96.0 FL 10/07/2023 1:59 PM CDT [facility] MCH 30.6 25.3 - 30.9 PG 10/07/2023 1:59 PM CDT [facility] MCHC 32.6 31.0 - 34.1 G/DL 10/07/2023 1:59 PM CDT [facility] RDW 13.5 12.4 - 15.1 % 10/07/2023 1:59 PM T [facility] PLT 248 151 - 353 x10'3/uL 10/07/2023 1:59 PM T [facility] MPV 9.4(L) 9.6 - 12.0 FL 10/07/2023 1:59 PM T [facility] RBC MORPHOLOGY NORMAL 10/07/2023 1:59 PM T [facility] PLT MORPH. NORMAL 10/07/2023 1:59 PM T [facility] WBC MORPHOLOGY NORMAL 10/07/2023 1:59 PM T [facility] LYMPHOCYTES % 11.8(L) 15.8 - 45.0 % 10/07/2023 1:59 PM CDT [facility] NEUTROPHILS % 84.7(H) 42.1 - 71.9 % 10/07/2023 1:59 PM CDT [facility] MONOCYTES % 1.8(L) 5.7 - 12.5 % 10/07/2023 1:59 PM T [facility] EOSINOPHILS 0.9 0.0 - 5.6 % 10/07/2023 1:59 PM CDT [facility] BASOPHILS 0.5 0.0 - 1.3 % 10/07/2023 1:59 PM CDT [facility] ABS. NEUTROPHILS 6.51(H) 1.40 - 6.00 x10'3/uL 10/07/2023 1:59 PM CDT [facility] IMMATURE GRANS % 0.3 0.0 - 0.5 % 10/07/2023 1:59 PM CDT [facility] ABS. LYMPHOCYTES 0.91 0.80 - 4.70 x10'3/uL 10/07/2023 1:59 PM CDT [facility] 10/07/2023 1:39 PM CDT us Josué Cook MD LABORATORY Final Result [facility] [address] [place] [id number], [place] [phone] * (ABNORMAL) COMPREHENSIVE METABOLIC PANEL (10/07/2023 1:39 PM CDT) GLUCOSE 185(H) 70 - 99 MG/DL 10/07/2023 2:29 PM CDT [facility] BUN 19(H) 7 - 18 MG/DL 10/07/2023 2:29 PM CDT [facility] CREATININE S/P/B 1.07(H) 0.55 - 1.02 MG/DL 10/07/2023 2:29 PM CDT [facility] SODIUM S/P/B 141 136 - 145 MMOL/L 10/07/2023 2:29 PM CDT [facility] POTASSIUM S/P/B 4.5 3.5 - 5.1 MMOL/L 10/07/2023 2:29 PM CDT [facility] CHLORIDE S/P/B 102 100 - 108 MMOL/L 10/07/2023 2:29 PM [facility] CO2 29.8 21 - 32 MMOL/L 10/07/2023 2:29 PM [facility] CALCIUM S/P/B 9.8 8.5 - 10.1 MG/DL 10/07/2023 2:29 PM [facility] BILIRUBIN TOTAL S/P/B 0.2 0.2 - 1.2 MG/DL 10/07/2023 2:29 PM [facility] TOTAL PROTEIN S/P/B 7.6 6.4 - 8.2 G/DL 10/07/2023 2:29 PM [facility] ALBUMIN S/P/B 3.7 3.4 - 5.0 G/DL 10/07/2023 2:29 PM [facility] AST 12(L) 15 - 37 U/L 10/07/2023 2:29 PM [facility] ALT 18 14 - 55 U/L 10/07/2023 2:29 PM [facility] ALKALINE PHOSPHATASE S/P/B 98 50 - 136 U/L 10/07/2023 2:29 PM [facility] ANION GAP 9.2 5 - 15 MMOL/L 10/07/2023 2:29 PM [facility] BUN CREATININE RATIO 17.8 6 - 26 10/07/2023 2:29 PM [facility] A/G RATIO 0.9(L) 1.0 - 2.0 RATIO 10/07/2023 2:29 PM [facility] GFR ESTIMATE 53(L) >90 ML/MIN/1.7 3 M2 10/07/2023 2:29 PM [facility] Comment: NOTE: eGFR is not calculated for patients <18 years of age. This is an estimated GFR calculation using the new CKD EPI creatinine equation without race and so does not require a correction factor for race. This estimated GFR should not be used for calculating drug doses. 10/07/2023 1:39 PM CDT Josué Cook MD LABORATORY Final Result [facility] [address] [place] [address], * (ABNORMAL) MISCELLANEOUS LAB TEST (10/07/2023 1:39 PM CDT) TEST NAME: [id number] VEDOLIZUMAB 10/07/2023 1:57 PM CDT [facility] SPECIMEN TYPE SERUM 10/07/2023 1:57 PM CDT [facility] TEST RESULT: Flexitest 1(A) 10/14/19 24 4:17 PM CDT [employer] JÚNIOR KATE Comment: Flexitest 1 TESTS RESULTS--------UNITS--REF. RANGE--- Vedolizumab QN, S ?10.9 L ? mcg/mL ?? REFERENCE VALUE Lower limit of quantitation = 2.0 mcg/mL ADDITIONAL INFORMATION This test was developed and its performance characteristics determined by [facility] in a manner consistent with CLIA requirements. This test has not been cleared or approved by the U.S. Food and Drug Administration. Vedolizumab Ab, S ?<9.8 ?ng/mL ??<9.8 VEMAB Interpretation ? REPORT ? RESULT: Absence of detectable auqasvvl-sl-dzpzrqukryw. ADDITIONAL INFORMATION This test was developed and its performance characteristics determined by [facility] in a manner consistent with CLIA requirements. This test has not been cleared or approved by the U.S. Food and Drug Administration. Test performed by: ? [facility] ? [address] ? [place] [address] ? Technology Recruiter: Holden Redman M.D., Ph.D; CLIA# [id number] Test Reported by Sierra Nelson, [employer] [facility], [address] [place] [address] Gamal Gao M.D., Ph.D., Director of Laboratories , CLIA [id number] 10/07/2023 1:39 PM CDT Josué Cook MD LABORATORY Final Result Performing Organization Address City/State/[facility] Co de Phone Number [place] [id number] [place], [place] , [place] [phone] [facility] [address] [place] [address], [place] [phone] documented in this encounter Visit Diagnoses Diagnosis [...] this section may contain times in both WORKING MANAGER and CDT. Scheduled Medication Order 10/05/2023 10/06/2023 [...] Total Score: 0 07/06/20 21 4:06 PM WORKING MANAGER documented as of this encounter Care Teams Stone Paver Relationship Specialty Start Date End Date Servando Torre MD [address] [place] [address] [address] [place] [address] PCP - General FAMILY PRACTICE 07/17/22 documented as of this encounter
--- OUTSIDE RECORDS SUMMARY | 2024-07-15 19:45 | XMS_ITS | Encounter Summary ---
Author Organization [facility] Address [address] [facility] [place] [place] [address] [place] [address] Care Team Providers Care Laborer Vegetable Farm Name Role Phone Servando Torre MD Primary Care Provider [phone] Encounter Details Date Type Department Care Team (Late st Contact Info) Description 07/19/2022 Orders Only [facility] [address] [place] [address] [address] [place] [address] Alen Corbett, DO [address] [address] Social History Tobacco Use Types Packs/Day Years [...] Coronavirus/COVID-19? No / Unsure 07/17/2022 1:45 PM TREE LOADER MEAT documented as of this encounter Functional Status [...] st Contact Info) Description 08/03/2024 2:00 PM TREE LOADER MEAT Appointment [address] [address] Josué Cook MD 4921 [facility] 8 [place] [address] documented as of this encounter Goals Goal Patient Goal Type Associated Problems Recent Progress Patient-Stated? Author HOME TO INDEPENDENT LIVING General No Vannessa Blackwell RN documented as of this encounter Visit Diagnoses Not on filedocumented in this encounter Additional Health Concerns Assessment Noted Time PHQ-9 Depression Total Score: 0 07/06/20 21 4:06 PM TREE LOADER MEAT documented as of this encounter Care Teams Laborer Vegetable Farm Relationship Specialty Start Date End Date Servando Torre MD 4 [facility] [address] [place] [address] PCP - General FAMILY PRACTICE 07/17/22 documented as of this encounter
--- OUTSIDE RECORDS SUMMARY | 2024-07-15 19:45 | XMS_ITS | Encounter Summary ---
Author Organization [facility] Address [address] [facility] [address] [place] [address] Care Team Providers Care Leather Fitter Name Role Phone Jared Abrams MD Primary Care Provider [phone] Encounter Details Date Type Department Care Team [...] st Contact Info) Description 08/03/2024 2:00 PM ARC WELDING MACHINE OPERATOR Appointment [address] [address] oJsué Cook MD [address] [address] documented as of this encounter Goals Goal Patient Goal Type Associated Problems Recent Progress Patient-Stated? Author HOME TO INDEPENDENT LIVING General No Vannessa Blackwell RN documented as of this encounter Visit Diagnoses Not on filedocumented in this encounter Additional Health Concerns Assessment Noted Time PHQ-9 Depression Total Score: 0 07/06/20 21 4:06 PM ARC WELDING MACHINE OPERATOR documented as of this encounter Care Teams Leather Fitter Relationship Specialty Start Date End Date Jared Abrams MD PCP - General 08/28/11 07/16/22 documented as of this encounter
--- OUTSIDE RECORDS SUMMARY | 2024-07-15 19:45 | XMS_ITS | Encounter Summary ---
Author Organization [facility] Address [address] [facility] [place] [address] [place] [address] Care Team Providers Care Life Enrichment Manager Name Role Phone Jared Abrams MD Primary Care Provider [phone] Encounter Details Date Type Department Care Team (Late st Contact Info) Description 01/24/2022 Medication Management [facility] Multispecialty Care - [facility] [address] [facility] [address] [place] [id number] Vladimir Parsons MD [address] [place] [address] [address] [place] [address] Social History Tobacco Use Types Packs/Day Years [...] st Contact Info) Description 08/03/2024 2:00 PM TOBACCO DRUMMER Appointment [facility] [address] [place] [address] Josué Cook MD [address] [address] documented as of this encounter Goals Goal Patient Goal Type Associated Problems Recent Progress Patient-Stated? Author HOME TO [facility] No Vannessa Blackwell RN documented as of this encounter Visit Diagnoses Diagnosis Ulcerative colitis with complication, unspecified location ([facility]/HCC [facility])- Primary documented in this encounter Additional Health Concerns Assessment Noted Time PHQ-9 Depression Total Score: 0 07/06/20 21 4:06 PM TOBACCO DRUMMER documented as of this encounter Care Teams Life Enrichment Manager Relationship Specialty Start Date End Date Jared Abrams MD PCP - General 08/28/11 07/16/22 documented as of this encounter
--- OUTSIDE RECORDS SUMMARY | 2024-07-15 19:45 | XMS_ITS | Encounter Summary ---
Author Organization [facility] Address [address] [facility] [place] [address] [place] [address] Care Team Providers Care It Software Developer Name Role Phone Servando Torre MD Primary Care Provider [phone] Reason for Visit * Treatment/Therapy Plan Authorization (Routine) - Closed Specialty Diagnoses / Procedures Referred By Angel braswell Referred To Contact Diagnoses Chronic ulcerative colitis, unspecified complication ([facility]/HCC [facility]) Procedures VEDOLIZUMAB, INJECTION [facility] [address] [place] [address] Phone: tel: [facility] [address] [place] [address] Phone: tel: Referral ID Status Reason Start Date Expiration Date Visits Re quested Visits Authorized [id number] Closed 06/18/2022 3 3 Encounter Details Date Type Department Care Team (Latest Contact Info) Description 04/14/2023 1:29 PM CDT - 04/14/2023 3:00 PM CDT Hospital Encounter [facility] [address] [place] [address] Non-Staff, Provider Mariela Denton MD [address] [place] [address] Josué Cook MD 5[address] [facility] 8 [facility] [place] [address] Discharge Disposition: Home or Self Care (Routine [...] st Contact Info) Description 08/03/2024 2:00 PM BUSINESS INTELLIGENCE DEVELOPER Appointment [facility] [address] [id number] Josué Cook MD [address] [address] documented as of this encounter Goals Goal Patient Goal Type Associated Problems Recent Progress Patient-Stated? Author HOME TO [facility] No Vannessa Blackwell RN documented as of this encounter Visit Diagnoses Diagnosis Chronic ulcerative colitis, unspecified complication ([facility]/HCC)- Primary documented in this encounter Administered [...] in 24 hours.Indications:Chronic ulcerative colitis, unspecified complication ([facility]CC HHS/HCC) acetaminophen (TYLENOL) tablet 650 mg 650 mg, Oral, Once as needed, Mild pain (Scale 1 - 3), 1 dose, Starting on Fri04/14/23 at 1330, Until Fri04/14/23 at 1727, Maximum dose of acetaminophen is 4000 mg from all sources in 24 hours.Indications:Chronic ulcerative colitis, unspecified complication ([facility] HHS/HCC) diphenhydrAMINE (BENADRYL) capsule 25 mg 25 mg, Oral, Once as needed, premedicate 30 mins prior to infusion, 1 dose, Starting on Fri04/14/23 at 1330, Until Fri04/14/23 at 1727Indications:Chronic ulcerative colitis, unspecified complication ([facility] HHS/HCC) diphenhydrAMINE (BENADRYL) injection 25 mg 25 mg, Intravenous, Once as needed, Severe hypersensitivity reaction (dyspnea, bronchospasm, urticaria, flushing, rash, and increased heart rate), Starting on Fri04/14/23 at 1330, Until Fri04/14/23 at 1727, For IV administration, give no faster than 25 mg/min. For severe hypersensitivity reaction (dyspnea, bronchospasm, urticaria, flushing, rash, and increased heart rate).Indications:Chronic ulcerative colitis, unspecified complication ([facility] HHS/HCC) EPINEPHrine PF (ADRENALIN) 1 mg/mL injection 0.3 mg 0.3 mg, Intramuscular, Every 5 min PRN, Other, Severe hypersensitivity reaction (dyspnea, bronchospasm, urticaria, flushing, rash, and increased heart rate), 3 doses, Starting on Fri04/14/23 at 1330, Until Fri04/14/23 at 1727, Severe hypersensitivity reaction (dyspnea, bronchospasm, urticaria, flushing, rash, and increased heart rate)Indications:Chronic ulcerative colitis, unspecified complication ([facility]) vedolizumab (ENTYVIO) 300 mg in sodium chloride [...] NS after completion.Indications:Chronic ulcerative colitis, unspecified complication ([facility]) New Bag 04/14/2023 2:08 PM CDT 300 [...] Depression Total Score: 0 07/06/20 4:06 PM BUSINESS INTELLIGENCE DEVELOPER documented as of this encounter Care Teams It Software Developer Relationship Specialty Start Date End Date Servando Torre MD [address] [place] [address] [address] [place] [address] PCP - General FAMILY PRACTICE 07/17/22 documented as of this encounter
--- OUTSIDE RECORDS SUMMARY | 2024-07-15 19:45 | XMS_ITS | Encounter Summary ---
Author Organization [facility] Address [address] [facility] [address] [place] [address] Care Team Providers Care Graduate Advisor Name Role Phone Servando Torre MD Primary Care Provider [phone] Encounter Details Date Type Department Care Team [...] st Contact Info) Description 08/03/2024 2:00 PM BRAND INSPECTOR Appointment [facility] [id number] [place] [address] Josué Cook MD [address] [address] documented as of this encounter Goals Goal Patient Goal Type Associated Problems Recent Progress Patient-Stated? Author HOME TO [facility] Vannessa Light RN documented as of this encounter Visit Diagnoses Not on filedocumented in this encounter Additional Health Concerns Assessment Noted Time PHQ-9 Depression Total Score: 0 07/06/20 21 4:06 PM BRAND INSPECTOR documented as of this encounter Care Teams Graduate Advisor Relationship Specialty Start Date End Date Servando Torre MD [address] [place] [address] [address] [place] [address] PCP - General FAMILY PRACTICE 07/17/22 documented as of this encounter
--- OUTSIDE RECORDS SUMMARY | 2024-07-15 19:45 | XMS_ITS | Encounter Summary ---
Author Organization [facility] Address [address] [facility] [place] [address] [place] [address] Care Team Providers Care Bacon Slicer Name Role Phone Servando Torre MD Primary Care Provider [phone] Encounter Details Date Type Department Care Team [...] Contact Info) Description 08/03/2024 2:00 PM [address]PER [address] [facility] [id number] [place] [address] Josué Cook MD [address] [address] documented as of this encounter Goals Goal Patient Goal Type Associated Problems Recent Progress Patient-Stated? Author HOME TO [facility] Vannessa Light RN documented as of this encounter Visit Diagnoses Not on filedocumented in this encounter Additional Health Concerns Assessment Noted Time PHQ-9 Depression Total Score: 0 07/06/20 21 4:06 PM HAND CLIPPER documented as of this encounter Care Teams Bacon Slicer Relationship Specialty Start Date End Date Servando Torre MD [address] [place] [address] [address] [place] [address] PCP - General FAMILY PRACTICE 07/17/22 documented as of this encounter
--- OUTSIDE RECORDS SUMMARY | 2024-07-15 19:45 | XMS_ITS | Encounter Summary ---
Author Organization [facility] Address [address] [facility] [place] [address] [place] [address] Care Team Providers Care Radio Intelligence Operator Name Role Phone Servando Torre MD Primary Care Provider + [phone] Reason for Visit * Treatment/Therapy Plan Authorization (Routine) - Closed Specialty Diagnoses / Procedures Referred By Angel braswell Referred To Contact Diagnoses Chronic ulcerative colitis, unspecified complication ([facility]/HCC [facility]) Procedures VEDOLIZUMAB, INJECTION [facility] [address] [place] [address] Phone: tel: [facility] [address] [place] [address] Phone: tel: Referral ID Status Reason Start Date Expiration Date Visits Re quested Visits Authorized [id number] Closed 06/18/2022 3 3 Encounter Details Date Type Department Care Team (Latest Contact Info) Description 08/28/2022 1:41 PM GAS OR WATER METER INSTALLER - 08/28/2022 3:13 PM GAS OR WATER METER INSTALLER Hospital Encounter [facility] [address] [place] [address] Mariela Denton MD [address] [place] [address] Discharge Disposition: Home or Self Care (Routine [...] Coronavirus/COVID-19? No / Unsure 08/28/2022 1:37 PM GAS OR WATER METER INSTALLER documented as of this encounter Last Filed Vital Signs Vital Sign Reading Time Taken Comments Blood Pressure 170/77 08/28/2022 3:00 PM GAS OR WATER METER INSTALLER Pulse 68 08/28/2022 3:00 PM GAS OR WATER METER INSTALLER Temperature 36.9 ??C (98.4 ??F) 08/28/2022 3:00 PM CS T Respiratory Rate 18 08/28/2022 2:00 PM GAS OR WATER METER INSTALLER Oxygen Saturation 99% 08/28/2022 3:00 PM GAS OR WATER METER INSTALLER Inhaled Oxygen Concentration - - Weight [...] Contact Info) Description 08/03/2024 2:00 PM GAS OR WATER METER INSTALLER Appointment [facility] [address] [place], [place] [id number] Josué Cook MD [address] [address] documented as of this encounter Goals Goal Patient Goal Type Associated Problems Recent Progress Patient-Stated? Author HOME TO [facility] Vannessa Light RN documented as of this encounter Visit Diagnoses Diagnosis Chronic ulcerative colitis, unspecified complication ([facility] HHS/HCC)- Primary documented in this encounter Administered [...] in 24 hours.Indications:Chronic ulcerative colitis, unspecified complication ([facility] HHS/HCC) diphenhydrAMINE (BENADRYL) capsule 25 mg 25 mg, Oral, Once as needed, premedicate 30 mins prior to infusion, 1 dose, Starting on Fri08/28/22 at 1343, Until Fri08/28/22 at 1714Indications:Chronic ulcerative colitis, unspecified complication ([facility] HHS/HCC) vedolizumab (ENTYVIO) 300 mg in sodium [...] NS after completion.Indications:Chronic ulcerative colitis, unspecified complication ([facility] HHS/HCC) New Bag 08/28/2022 2:07 PM GAS OR WATER METER INSTALLER 300 mg 500 mL/hr documented in this encounter Active and Recently Administered Medications Times are shown in GAS OR WATER METER INSTALLER. Scheduled Medication Order 08/26/2022 08/27/2022 08/28/2022 vedolizumab [...] Depression Total Score: 0 07/06/20 4:06 PM GAS OR WATER METER INSTALLER documented as of this encounter Care Teams Radio Intelligence Operator Relationship Specialty Start Date End Date Servando Torre MD [address] [facility] [address] [place] [address] PCP - General FAMILY PRACTICE 07/17/22 documented as of this encounter
--- OUTSIDE RECORDS SUMMARY | 2024-07-15 19:45 | XMS_ITS | Encounter Summary ---
Author Organization [facility] Address [address] [facility] [place] [address] [place] [address] Care Team Providers Care Cotton Wringer Name Role Phone Servando Torre MD Primary [...] st Contact Info) Description 08/03/2024 2:00 PM CARTOGRAPHIC ENGINEER Appointment [address] [address] Josué Cook MD [address] [address] documented as of this encounter Goals Goal Patient Goal Type Associated Problems Recent Progress Patient-Stated? Author HOME TO [facility] No Vannessa Blackwell RN documented as of this encounter Visit Diagnoses Not on filedocumented in this encounter Additional Health Concerns Assessment Noted Time PHQ-9 Depression Total Score: 0 07/06/20 21 4:06 PM CARTOGRAPHIC ENGINEER documented as of this encounter Care Teams Cotton Wringer Relationship Specialty Start Date End Date Servando Torre MD [address] [place] [address] [address] [place] [address] PCP - General FAMILY PRACTICE 07/17/22 documented as of this encounter
--- OUTSIDE RECORDS SUMMARY | 2024-07-15 19:45 | XMS_ITS | Encounter Summary ---
Author Organization [facility] Address [address] [facility] [place] [address] [place] [address] Care Team Providers Care Store Facility Technician Name Role Phone Jared Abrams MD Primary Care Provider [phone] Reason for Visit * Reason Onset Date Comments Diarrhea 01/04/2022 Appointment Request 01/04/2022 Encounter Details Date Type Department Care Team (Late st Contact Info) Description 01/04/2022 Telephone [facility] Multispecialty Care - [facility] [address] [facility], [address] [place] [address] Vladimir Parsons MD 3 [facility] [address] [place] [address] Diarrhea; Appointment Request Social History [...] give Pt a call back to discuss [phone] documented in this encounter Plan of Treatment Upcoming Encounters Date Type Department Care Team (Late st Contact Info) Description 08/03/2024 2:00 PM HARDWARE DESIGN ENGINEER Appointment [address] [address] Josué Cook MD [address] [address] documented as of this encounter Goals Goal Patient Goal Type Associated Problems Recent Progress Patient-Stated? Author HOME TO [facility] Vannessa Light, ELMO documented as of this encounter Visit Diagnoses Not on filedocumented in this encounter Additional Health Concerns Assessment Noted Time PHQ-9 Depression Total Score: 0 07/06/20 21 4:06 PM HARDWARE DESIGN ENGINEER documented as of this encounter Care Teams Store Facility Technician Relationship Specialty Start Date End Date Jared Abrams MD PCP - General 08/28/11 07/16/22 documented as of this encounter
--- OUTSIDE RECORDS SUMMARY | 2024-07-15 19:45 | XMS_ITS | Encounter Summary ---
Author Organization [facility] Address [address] [facility] [place] [address] [place] [address] Care Team Providers Care Curriculum Developer Name Role Phone Jared Abrams MD Primary Care Provider [phone] Encounter Details Date Type Department Care Team (Latest Contact Info) Description 01/17/2022 9:48 AM CDT - 01/17/2022 11:59 PM CDT Hospital Encounter [facility] [address] [place] [address] Vladimir Parsons MD [address] [place] [phone] Discharge Disposition: Home or Self Care (Routine [...] 01/17/2022 9:50 AM CDT Call x1 left [facility] for pt to call the office for test results * Riri Robles LPN - 01/17/2022 9:50 AM CDT PT AWARE OF TEST RESULTS, MEDICATION AND FUTURE TESTING documented in this encounter Plan of Treatment Upcoming Encounters Date Type Department Care Team (Late st Contact Info) Description 08/03/2024 2:00 PM MODERN DANCER Appointment [address] [address] Josué Cook MD [address] [facility] [address] [place] [address] documented as of this encounter Goals Goal [...] NIL (TB) 0.02 01/22/2022 2:30 PM CDT [facility] MITOGEN NIL >10.00 01/22/2022 2:30 PM CDT [facility] TB1 AG MINUS NIL 0.01 01/22/2022 2:30 PM CDT [facility] TB2 AG MINUS NIL 0.01 01/22/2022 2:30 PM CDT [facility] 01/17/2022 9:57 AM CDT Vladimir Parsons MD LABORATORY Final Result [facility] [address] [place] [address], * HEPATITIS PANEL,ACUTE (01/17/2022 9:57 AM CDT) HEPATITIS B SURFACE AG NON-REACTI VE NON-REACTI VE 01/17/2022 3:46 PM CDT [facility] HEP B CORE IGM NON-REACTI VE NON-REACTI VE 01/17/2022 7:25 PM CDT [facility] HAV IGM NON-REACTI VE NON-REACTI VE 01/17/2022 4:06 PM CDT [facility] HEPATITIS C AB NON-REACTI VE NON-REACTI VE 01/17/2022 4:05 PM CDT [facility] 01/17/2022 9:57 AM CDT Vladimir Parsons MD LABORATORY Final Result [facility] [address] [place] [address], * TPMT ACTIVITY (01/17/2022 9:57 AM CDT) TPMT ACTIVITY 13 01/24/2022 12:46 AM CDT [employer] [facility] Comment: Units: ??nmol/hr/mL RBC Reference Range for TPMT Activity: ??>12 ? Normal 4-12 ? Heterozygote or low metabolizer ?? <4 ? Homozygote Deficient Range This test was developed and its analytical performance characteristics have been determined by [employer] [facility]. It has not been cleared or approved by FDA. This assay has been validated pursuant to the CLIA regulations and is used for clinical purposes. Test performed by [employer] [facility] ? [address] [facility], ? [place] [address] ? Basting Machine Operator: Lillian Duong MD,PHD,JOVANY Test Reported by Sierra Nelson, [place], [address] [place], [place] Gamal Gao M.D., Ph.D., Director of Laboratories , [place] [id number] 01/17/2022 9:57 AM CDT us Vladimir Parsons MD LABORATORY Final Result Performing Organization Address City/State/[facility] Co de Phone Number [facility] [address] [place] [address], [place] [phone] documented in this encounter Visit Diagnoses Diagnosis UC (ulcerative colitis confined to rectum) ([facility]) Ulcerative (chronic) proctitis Diarrhea, unspecified type documented in this encounter Additional Health Concerns Assessment Noted Time PHQ-9 Depression Total Score: 0 07/06/20 21 4:06 PM MODERN DANCER documented as of this encounter Care Teams Curriculum Developer Relationship Specialty Start Date End Date Jared Abrams MD PCP - General 08/28/11 07/16/22 documented as of this encounter
--- OUTSIDE RECORDS SUMMARY | 2024-07-15 19:45 | XMS_ITS | Encounter Summary ---
Author Organization [facility] Address [address] [facility] [place] [address] [place] [address] Care Team Providers Care Director Sterile Processing Name Role Phone Servando Torre MD Primary Care Provider [phone] Reason for Visit * Treatment/Therapy Plan Authorization (Routine) - Closed Specialty Diagnoses / Procedures Referred By Angel braswell Referred To Contact Diagnoses Chronic ulcerative colitis, unspecified complication ([facility]/HCC [facility]) Procedures VEDOLIZUMAB, INJECTION [facility] [address] [place] [address] Phone: tel: [facility] [address] [place] [address] Phone: tel: Referral ID Status Reason Start Date Expiration Date Visits Re quested Visits Authorized [id number] Closed 06/18/2022 3 3 Encounter Details Date Type Department Care Team (Latest Contact Info) Description 10/23/2022 2:08 PM CDT - 10/23/2022 4:00 PM CDT Hospital Encounter [facility] [address] [place] [address] Mariela Denton MD [address] [place] [address] Discharge Disposition: Home or Self Care (Routine [...] st Contact Info) Description 08/03/2024 2:00 PM CRAFT WORKER Appointment [address] [address] Josué Cook MD [facility] [address] [place] [address] documented as of this encounter Goals Goal Patient Goal Type Associated Problems Recent Progress Patient-Stated? Author HOME TO [facility] No Rishi, Vannessa M, RN documented as [...] - 8.2 G/DL 10/23/2022 3:01 PM T [facility] ALBUMIN S/P/B 3.8 3.4 - 5.0 G/DL 10/23/2022 3:01 PM T [facility] BILIRUBIN TOTAL S/P/B 0.4 0.2 - 1.2 MG/DL 10/23/2022 3:01 PM [facility] BILIRUBIN DIRECT S/P/B 0.1 0.0 - 0.20 MG/DL 10/23/2022 3:01 PM [facility] BILIRUBIN INDIRECT S/P/B 0.3 0.0 - 0.9 MG/DL 10/23/2022 3:01 PM T [facility] ALKALINE PHOSPHATASE S/P/B 74 50 - 136 U/L 10/23/2022 3:01 PM [facility] AST 29 15 - 37 U/L 10/23/2022 3:01 PM T [facility] ALT 31 14 - 55 U/L 10/23/2022 3:01 PM [facility] A/G RATIO 0.9(L) 1.0 - 2.0 RATIO 10/23/2022 3:01 PM [facility] 10/23/2022 2:45 PM CDT us Mariela Denton MD LABORATORY Final Res ult [facility] [address] [place] [address], [place] [phone] * (ABNORMAL) CBC W/DIFF AUTOMATED (10/23/2022 2:45 PM CDT) WBC 7.90 4.4 - 11.0 x10'3/uL 10/23/2022 2:50 PM CDT [facility] RBC 4.81 4.50 - 5.10 x10'6/uL 10/23/2022 2:50 PM CDT [facility] HGB 14.2 12.3 - 15.3 G/DL 10/23/2022 2:50 PM CDT [facility] HCT 43.4 35.9 - 44.6 % 10/23/2022 2:50 PM CDT [facility] MCV 90.2 80.0 - 96.0 FL 10/23/2022 2:50 PM CDT [facility] MCH 29.5 25.3 - 30.9 PG 10/23/2022 2:50 PM CDT [facility] MCHC 32.7 31.0 - 34.1 G/DL 10/23/2022 2:50 PM CDT [facility] RDW 14.4 12.4 - 15.1 % 10/23/2022 2:50 PM CDT [facility] PLT 251 151 - 353 x10'3/uL 10/23/2022 2:50 PM CDT [facility] MPV 8.8(L) 9.6 - 12.0 FL 10/23/2022 2:50 PM CDT [facility] RBC MORPHOLOGY NORMAL 10/23/2022 2:50 PM CDT [facility] PLT MORPH. NORMAL 10/23/2022 2:50 PM CDT [facility] WBC MORPHOLOGY NORMAL 10/23/2022 2:50 PM CDT [facility] LYMPHOCYTES % 31.1 15.8 - 45.0 % 10/23/2022 2:50 PM CDT [facility] NEUTROPHILS % 57.7 42.1 - 71.9 % 10/23/2022 2:50 PM CDT [facility] MONOCYTES % 7.3 5.7 - 12.5 % 10/23/2022 2:50 PM CDT [facility] EOSINOPHILS 2.9 0.0 - 5.6 % 10/23/2022 2:50 PM CDT [facility] BASOPHILS 0.6 0.0 - 1.3 % 10/23/2022 2:50 PM CDT [facility] ABS. NEUTROPHILS 4.55 1.40 - 6.00 x10'3/uL 10/23/2022 2:50 PM CDT [facility] IMMATURE GRANS % 0.4 0.0 - 0.5 % 10/23/2022 2:50 PM CDT [facility] ABS. LYMPHOCYTES 2.46 0.80 - 4.70 x10'3/uL 10/23/2022 2:50 PM CDT [facility] 10/23/2022 2:45 PM CDT us Mariela Denton MD LABORATORY Final Res ult [facility] [address] [place] [address], [place] [phone] documented in this encounter Visit Diagnoses Diagnosis Chronic ulcerative colitis, unspecified complication ([facility]/HCC)- Primary documented in this encounter Administered Medications [...] in 24 hours.Indications:Chronic ulcerative colitis, unspecified complication ([facility] HHS/HCC) acetaminophen (TYLENOL) tablet 650 mg 650 mg, Oral, Once as needed, Mild pain (Scale 1 - 3), 1 dose, Starting on Fri10/23/22 at 1414, Until Fri10/23/22 at 1446, Administer 30 mins prior to infusion Maximum dose of acetaminophen is 4000 mg from all sources in 24 hours.Indications:Chronic ulcerative colitis, unspecified complication ([facility] HHS/[facility]) Given 10/23/2022 2:46 PM CDT 650 mg diphenhydrAMINE (BENADRYL) capsule 25 mg 25 mg, Oral, Once as needed, premedicate 30 mins prior to infusion, 1 dose, Starting on Fri10/23/22 at 1414, Until Fri10/23/22 at 1446Indications:Chronic ulcerative colitis, unspecified complication ([facility] HHS/HCC) Given 10/23/2022 2:46 PM CDT [...] increased heart rate).Indications:Chronic ulcerative colitis, unspecified complication ([facility] HHS/HCC) EPINEPHrine PF (ADRENALIN) 1 mg/mL injection 0.3 mg 0.3 mg, Intramuscular, Every 5 min PRN, Other, Severe hypersensitivity reaction (dyspnea, bronchospasm, urticaria, flushing, rash, and increased heart rate), 3 doses, Starting on Fri10/23/22 at 1414, Until Fri10/23/22 at 1804, Severe hypersensitivity reaction (dyspnea, bronchospasm, urticaria, flushing, rash, and increased heart rate)Indications:Chronic ulcerative colitis, unspecified complication ([facility] HHS/[facility]) vedolizumab (ENTYVIO) 300 mg in sodium [...] NS after completion.Indications:Chronic ulcerative colitis, unspecified complication ([facility] HHS/HCC) New Bag 10/23/2022 2:48 PM [...] Depression Total Score: 0 07/06/20 4:06 PM CRAFT WORKER documented as of this encounter Care Teams Director Sterile Processing Relationship Specialty Start Date End Date Servando Torre MD [address] [place] [address] [address] [place] [address] PCP - General FAMILY PRACTICE 07/17/22 documented as of this encounter
--- OUTSIDE RECORDS SUMMARY | 2024-07-15 19:45 | XMS_ITS | Encounter Summary ---
Author Organization [facility] Address [address] [facility] [place] [address] [place] [address] Care Team Providers Care Forensic Pathologist Name Role Phone Jared Abrams MD Primary Care Provider [phone] Encounter Details Date Type Department Care Team [...] st Contact Info) Description 08/03/2024 2:00 PM APPELLATE CONFEREE Appointment [address] [address] Josué Cook MD [address] [address] documented as of this encounter Goals Goal Patient Goal Type Associated Problems Recent Progress Patient-Stated? Author HOME TO [facility] General No Vannessa Blackwell RN documented as of this encounter Visit Diagnoses Not on filedocumented in this encounter Additional Health Concerns Assessment Noted Time PHQ-9 Depression Total Score: 0 07/06/20 21 4:06 PM APPELLATE CONFEREE documented as of this encounter Care Teams Forensic Pathologist Relationship Specialty Start Date End Date Jared Abrams MD PCP - General 08/28/11 07/16/22 documented as of this encounter
--- OUTSIDE RECORDS SUMMARY | 2024-07-15 19:45 | XMS_ITS | Encounter Summary ---
Author Organization [facility] Address [address] [facility] [address] [place] [address] Care Team Providers Care Container Shop Welder Name Role Phone Servando Torre MD Primary [...] st Contact Info) Description 08/03/2024 2:00 PM OPERATING ROOM ASSISTANT Appointment [address] [address] Josué Cook MD [address] [address] documented as of this encounter Goals Goal Patient Goal Type Associated Problems Recent Progress Patient-Stated? Author HOME TO [facility]DEP[facility]ENT LIV[facility] No Vannessa Blackwell RN documented as of this encounter Visit Diagnoses Not on filedocumented in this encounter Additional Health Concerns Assessment Noted Time PHQ-9 Depression Total Score: 0 07/06/20 21 4:06 PM OPERATING ROOM ASSISTANT documented as of this encounter Care Teams Container Shop Welder Relationship Specialty Start Date End Date Servando Torre MD [address] [place] [address] [address] [place] [address] PCP - General FAMILY PRACTICE 07/17/22 documented as of this encounter
--- OUTSIDE RECORDS SUMMARY | 2024-07-15 19:45 | XMS_ITS | Encounter Summary ---
Author Organization [facility] Address [address] [facility]. [address] Care Team Providers Care Family And Consumer Science Professor Name Role Phone Servando Torre MD Primary Care Provider [phone] Reason for Visit * Treatment/Therapy Plan Authorization (Routine) - Closed Specialty Diagnoses / Procedures Referred By Angel braswell Referred To Contact Diagnoses Chronic ulcerative colitis, unspecified complication ([facility]/HCC [facility]) Procedures VEDOLIZUMAB, INJECTION [facility] [address] [place] [address] Phone: tel: [facility] [address] [place] [address] Phone: tel: Referral ID Status Reason Start Date Expiration Date Visits Re quested Visits Authorized [id number] Closed 06/18/2022 3 3 Encounter Details Date Type Department Care Team (Latest Contact Info) Description 07/17/2022 1:51 PM V BELT FINISHER - 07/17/2022 4:30 PM V BELT FINISHER Hospital Encounter [facility] [address] [place] [address] Mariela Denton MD [facility] [address] [place] [address] Discharge Disposition: Home or Self Care (Routine [...] Coronavirus/COVID-19? No / Unsure 07/17/2022 1:45 PM V BELT FINISHER documented as of this encounter Last Filed Vital Signs Vital Sign Reading Time Taken Comments Blood Pressure 143/64 07/17/2022 4:05 PM V BELT FINISHER Pulse 56 07/17/2022 4:05 PM V BELT FINISHER Temperature 36.7 ??C (98.1 ??F) 07/17/2022 4:05 PM CS T Respiratory Rate - - Oxygen Saturation 95% 07/17/2022 4:05 PM V BELT FINISHER Inhaled Oxygen Concentration - - Weight - [...] st Contact Info) Description 08/03/2024 2:00 PM V BELT FINISHER Appointment [facility] [address] [place], [place] [phone] Josué Cook MD [address] [facility] [address] [place] [address] documented as of this encounter Goals Goal Patient Goal Type Associated Problems Recent Progress Patient-Stated? Author HOME TO [facility] Vannessa Light RN documented as of this encounter Procedures Procedure Name Priority Date/Time Associated Diagnosis Comments HEPATIC FUNCTION PANEL Routine 07/17/2022 3:00 PM V BELT FINISHER Chronic ulcerative colitis, unspecified complication (CMS/HCC HHS/HCC) CBC W/DIFF AUTOMATED Routine 07/17/2022 3:00 PM V BELT FINISHER Chronic ulcerative colitis, unspecified complication (CMS/HCC HHS/HCC) documented in this encounter Results * (ABNORMAL) HEPATIC FUNCTION PANEL (07/17/2022 3:00 PM V BELT FINISHER) TOTAL PROTEIN S/P/B 6.8 6.4 - 8.2 G/DL 07/17/2022 3:40 PM [facility] ALBUMIN S/P/B 3.3(L) 3.4 - 5.0 G/DL 07/17/2022 3:40 PM [facility] BILIRUBIN TOTAL S/P/B 0.3 0.2 - 1.2 MG/DL 07/17/2022 3:40 PM [facility] BILIRUBIN DIRECT S/P/B 0.1 0.0 - 0.20 MG/DL 07/17/2022 3:40 PM [facility] BILIRUBIN INDIRECT S/P/B 0.2 0.0 - 0.9 MG/DL 07/17/2022 3:40 PM [facility] ALKALINE PHOSPHATASE S/P/B 66 50 - 136 U/L 07/17/2022 3:40 PM [facility] AST 21 15 - 37 U/L 07/17/2022 3:40 PM [facility] ALT 16 14 - 55 U/L 07/17/2022 3:40 PM [facility] A/G RATIO 0.9(L) 1.0 - 2.0 RATIO 07/17/2022 3:40 PM [facility] 07/17/2022 3:00 PM V BELT FINISHER us Mariela Denton MD LABORATORY Final Res ult [facility] [address] [place] [address], * (ABNORMAL) CBC W/DIFF AUTOMATED (07/17/2022 3:00 PM V BELT FINISHER) WBC 7.7 4.4 - 11.0 x10'3/uL 07/17/2022 3:12 PM V BELT FINISHER [facility] RBC 4.29(L) 4.50 - 5.10 x10'6/uL 07/17/2022 3:12 PM [facility] HGB 12.9 12.3 - 15.3 G/DL 07/17/2022 3:12 PM [facility] HCT 39.8 35.9 - 44.6 % 07/17/2022 3:12 PM [facility] MCV 92.8 80.0 - 96.0 FL 07/17/2022 3:12 PM V BELT FINISHER [facility] MCH 30.1 25.3 - 30.9 PG 07/17/2022 3:12 PM V BELT FINISHER [facility] MCHC 32.4 31.0 - 34.1 G/DL 07/17/2022 3:12 PM [facility] RDW 14.9 12.4 - 15.1 % 07/17/2022 3:12 PM V BELT FINISHER [facility] PLT 263 151 - 353 x10'3/uL 07/17/2022 3:12 PM [facility] MPV 9.1(L) 9.6 - 12.0 FL 07/17/2022 3:12 PM V BELT FINISHER [facility] RBC MORPHOLOGY NORMAL 07/17/2022 3:12 PM [facility] PLT MORPH. NORMAL 07/17/2022 3:12 PM V BELT FINISHER [facility] WBC MORPHOLOGY NORMAL 07/17/2022 3:12 PM V BELT FINISHER [facility] LYMPHOCYTES % 27.8 15.8 - 45.0 % 07/17/2022 3:12 PM V BELT FINISHER [facility] NEUTROPHILS % 61.0 42.1 - 71.9 % 07/17/2022 3:12 PM V BELT FINISHER [facility] MONOCYTES % 7.7 5.7 - 12.5 % 07/17/2022 3:12 PM [facility] EOSINOPHILS 2.6 0.0 - 5.6 % 07/17/2022 3:12 PM V BELT FINISHER [facility] BASOPHILS 0.5 0.0 - 1.3 % 07/17/2022 3:12 PM V BELT FINISHER [facility] ABS. NEUTROPHILS 4.70 1.40 - 6.00 x10'3/uL 07/17/2022 3:12 PM V BELT FINISHER [facility] IMMATURE GRANS % 0.4 0.0 - 0.5 % 07/17/2022 3:12 PM V BELT FINISHER [facility] ABS. LYMPHOCYTES 2.14 0.80 - 4.70 x10'3/uL 07/17/2022 3:12 PM [facility] 07/17/2022 3:00 PM V BELT FINISHER us Mariela Denton MD LABORATORY Final Res ult [facility] [address] [place] [address], documented in this encounter Visit Diagnoses Diagnosis [...] complication (CMS/HCC HHS/HCC) Given 07/17/2022 3:10 PM V BELT FINISHER 25 mg vedolizumab (ENTYVIO) 300 mg in [...] (CMS/HCC HHS/HCC) New Bag 07/17/2022 3:30 PM V BELT FINISHER 300 mg 500 mL/hr documented in this encounter Active and Recently Administered Medications Times are shown in V BELT FINISHER. Scheduled Medication Order 07/15/2022 07/16/2022 07/17/2022 vedolizumab [...] Depression Total Score: 0 07/06/20 4:06 PM V BELT FINISHER documented as of this encounter Care Teams Family And Consumer Science Professor Relationship Specialty Start Date End Date Servando Torre MD [address] [place] [address] [address] [place] [address] PCP - General FAMILY PRACTICE 07/17/22 documented as of this encounter
--- OUTSIDE RECORDS SUMMARY | 2024-07-15 19:45 | XMS_ITS | Encounter Summary ---
Author Organization [facility] Address [address] [place] [address] [place] [address] Care Team Providers Care Uptwist Spinner Name Role Phone Servando Torre MD Primary Care Provider Encounter Details Date Type Department Care Team (Late st Contact Info) Description 08/19/2023 Therapy Plan [facility] Services [address] [place] [address] Josué Cook MD [address] [place] [address] Social History Tobacco Use Types Packs/Day Years [...] Contact Info) Description 08/03/2024 2:00 PM MANAGER SPRING Appointment [address] [phone] Josué Cook MD [address] [address] documented as of this encounter Goals Goal Patient Goal Type Associated Problems Recent Progress Patient-Stated? Author HOME TO [facility] No Vannessa Blackwell RN documented as of this encounter Visit Diagnoses Diagnosis Abnormal liver function tests- Primary Other abnormal blood chemistry Chronic ulcerative colitis, unspecified complication (CMS/HCC HHS/HCC) documented in this encounter Additional Health Concerns Assessment Noted Time PHQ-9 Depression Total Score: 0 07/06/20 21 4:06 PM MANAGER SPRING documented as of this encounter Care Teams Uptwist Spinner Relationship Specialty Start Date End Date Servando Torre MD [address] [place] [address] [address] [place] [address] PCP - General FAMILY PRACTICE 07/17/22 documented as of this encounter
--- OUTSIDE RECORDS SUMMARY | 2024-07-15 19:45 | XMS_ITS | Encounter Summary ---
Author Organization [facility] Address [address] [facility] [address] [place] [address] Care Team Providers Care Development Officer Name Role Phone Servando Torre MD Primary Care Provider [phone] Reason for Visit * Reason Onset Date Comments Orders 04/14/2023 Need updated ord ers for Entyvio infusion Encounter Details Date Type Department Care Team (Late st Contact Info) Description 04/14/2023 Telephone [facility] [address] [place], [place] [phone] Mariela Denton MD [address] [place] [address] Orders (Need updated orders for Entyvio infusion [...] insurance auth for the new order to [facility] Infusion center. Just FYI, pt did have a seizure over the summer and is now on Keppra. Order can be faxed to us at [phone]. Or please feel free to call w/ any questions at [phone]. documented in this encounter Plan of Treatment Upcoming Encounters Date Type Department Care Team (Late st Contact Info) Description 08/03/2024 2:00 PM FAMILY HEALTH NURSE PRACTITIONER Appointment [facility] [address] [place] [address] Josué Cook MD [address] [facility] 8 [place] [address] documented as of this encounter Goals Goal Patient Goal Type Associated Problems Recent Progress Patient-Stated? Author HOME TO [facility] Vannessa Light RN documented as of this encounter Visit Diagnoses Not on filedocumented in this encounter Additional Health Concerns Assessment Noted Time PHQ-9 Depression Total Score: 0 07/06/20 4:06 PM FAMILY HEALTH NURSE PRACTITIONER documented as of this encounter Care Teams Development Officer Relationship Specialty Start Date End Date Servando Torre MD [address] [place] [address] [address] [place] [address] PCP - General FAMILY PRACTICE 07/17/22 documented as of this encounter
--- OUTSIDE RECORDS SUMMARY | 2024-07-15 19:45 | XMS_ITS | Encounter Summary ---
Author Organization [facility] Address [address] [facility] [place] [address] [place] [address] Care Team Providers Care Superintendent Maintenance Airports Name Role Phone Jared Abrams MD Primary Care Provider [phone] Servando Torre MD Primary Care Provider [phone] Encounter Details Date Type Department Care Team (Late st Contact Info) Description 06/18/2022 Therapy Plan [facility] [address] [place] [address] Mariela Denton MD [facility] S CLOVISArielle [facility] [address] [place] [address] Social History Tobacco Use Types Packs/Day Years [...] Date Type Department Care Team (Late st [facility] Info) Description 08/03/2024 2:00 PM WASHROOM ATTENDANT Appointment [facility] [id number] [place] [address] Josué Cook MD [facility] [address] [address] documented as of this encounter Goals Goal Patient Goal Type Associated Problems Recent Progress Patient-Stated? Author HOME TO [facility] General No Vannessa Blackwell RN documented as of this encounter Visit Diagnoses Diagnosis Chronic ulcerative colitis, unspecified complication (CMS/HCC [facility])- Primary documented in this encounter Additional Health Concerns Assessment Noted Time PHQ-9 Depression Total Score: 0 07/06/20 21 4:06 PM WASHROOM ATTENDANT documented as of this encounter Care Teams Superintendent Maintenance Airports Relationship Specialty Start Date End Date Jared Abrams MD PCP - General 08/28/11 07/16/22 Servando Torre MD [address] [facility] [address] [place] [address] PCP - General FAMILY PRACTICE 07/17/22 documented as of this encounter
--- OUTSIDE RECORDS SUMMARY | 2024-07-15 19:45 | XMS_ITS | Encounter Summary ---
Author Organization [facility] Address [address] [facility] [place] [address] [place] [address] Care Team Providers Care Pool Installer Name Role Phone Servando Torre MD Primary Care Provider [phone] Reason for Visit * Treatment/Therapy Plan Authorization (Routine) - Closed Specialty Diagnoses / Procedures Referred By Angel braswell Referred To Contact Diagnoses Chronic ulcerative colitis, unspecified complication ([facility]/HCC [facility]) Procedures VEDOLIZUMAB, INJECTION [facility] [address] [place] [address] Phone: tel: [facility] [address] [place] [address] Phone: tel: Referral ID Status Reason Start Date Expiration Date Visits Re quested Visits Authorized [id number] Closed 06/18/2022 3 3 Encounter Details Date Type Department Care Team (Latest Contact Info) Description 07/31/2022 1:42 PM DX BOARD OPERATOR - 07/31/2022 4:09 PM [facility] Hospital Encounter [facility] [address] [place] [address] Mariela Denton MD [facility] [address] [place] [address] Discharge Disposition: Home or Self Care (Routine [...] Coronavirus/COVID-19? No / Unsure 07/31/2022 1:38 PM DX BOARD OPERATOR documented as of this encounter Last Filed Vital Signs Vital Sign Reading Time Taken Comments Blood Pressure 138/55 07/31/2022 4:00 PM DX BOARD OPERATOR Pulse 77 07/31/2022 4:00 PM DX BOARD OPERATOR Temperature 36.8 ??C (98.3 ??F) 07/31/2022 2:38 PM CS T Respiratory Rate - - Oxygen Saturation 98% 07/31/2022 4:00 PM DX BOARD OPERATOR Inhaled Oxygen Concentration - - Weight [...] st Contact Info) Description 08/03/2024 2:00 PM DX BOARD OPERATOR Appointment [facility] [address] [place], [place] [phone] Josué Cook MD [address] [facility] 8 [place] [address] documented as of this encounter Goals Goal Patient Goal Type Associated Problems Recent Progress Patient-Stated? Author HOME TO [facility] Vannessa Light RN documented as of this encounter Visit Diagnoses Diagnosis Chronic ulcerative colitis, unspecified complication ([facility] HHS/HCC)- Primary documented in this encounter [...] in 24 hours.Indications:Chronic ulcerative colitis, unspecified complication ([facility] HHS/HCC) diphenhydrAMINE (BENADRYL) capsule 25 mg 25 mg, Oral, Once as needed, premedicate 30 mins prior to infusion, 1 dose, Starting on Fri07/31/22 at 1425, Until Fri07/31/22 at 1433Indications:Chronic ulcerative colitis, unspecified complication ([facility] HHS/HCC) Given 07/31/2022 2:33 PM DX BOARD OPERATOR 25 mg vedolizumab (ENTYVIO) 300 mg in [...] NS after completion.Indications:Chronic ulcerative colitis, unspecified complication ([facility] HHS/HCC) New Bag 07/31/2022 3:08 PM DX BOARD OPERATOR 300 mg 500 mL/hr documented in this encounter Active and Recently Administered Medications Times are shown in DX BOARD OPERATOR. Scheduled Medication Order 07/29/2022 07/30/2022 07/31/2022 vedolizumab [...] Total Score: 0 07/06/20 21 4:06 PM DX BOARD OPERATOR documented as of this encounter Care Teams Pool Installer Relationship Specialty Start Date End Date Servando Torre MD [address] [place] [address] [address] [place] [address] PCP - General FAMILY PRACTICE 07/17/22 documented as of this encounter
--- OUTSIDE RECORDS SUMMARY | 2024-07-15 19:45 | XMS_ITS | Encounter Summary ---
Author Organization [facility] Address [address] [facility] [place] [address] [place] [address] Care Team Providers Care Trackwalker Name Role Phone Servando Torre MD Primary Care Provider [phone] Encounter Details Date Type Department Care Team [...] Contact Info) Description 08/03/2024 2:00 PM ARC WELDER APPRENTICE Appointment [facility] [id number] [place] [address] Josué Cook MD [address] [address] documented as of this encounter Goals Goal Patient Goal Type Associated Problems Recent Progress Patient-Stated? Author HOME TO [facility] Vannessa Light RN documented as of this encounter Visit Diagnoses Not on filedocumented in this encounter Additional Health Concerns Assessment Noted Time PHQ-9 Depression Total Score: 0 07/06/20 21 4:06 PM ARC WELDER APPRENTICE documented as of this encounter Care Teams Trackwalker Relationship Specialty Start Date End Date Servando Torre MD [address] [place] [address] [address] [place] [address] PCP - General FAMILY PRACTICE 07/17/22 documented as of this encounter
--- OUTSIDE RECORDS SUMMARY | 2024-07-15 19:45 | XMS_ITS | Encounter Summary ---
Author Organization [facility] Address [address] [facility] [place] [address] [place] [address] Care Team Providers Care Psychologist Research Assistant Name Role Phone Jared Abrams MD Primary Care Provider [phone] Reason for Visit * Reason Comments Follow Up Path results * Consultation/Treatment (Routine) - Closed Specialty Diagnoses / Procedures Referred By Angel braswell Referred To Contact GASTROENTEROLOGY Diagnoses FU Procedures FOLLOW UP Jared Abrams MD [address] [place] [address] Phone: tel: fax: Vladimir Parsons MD [address] [address] Phone: tel: fax: Referral ID Status Reason Start Date Expiration Date Visits Re quested Visits Authorized [id number] Closed 11/16/2020 07/06/2022 100 100 Encounter Details Date Type Department Care Team (Latest Contact Info) Description 10/26/2021 2:40 PM CDT Office Visit [facility] [address] [address] Vladimir Parsons MD [address] [address] Follow Up (Path results) Social [...] biopsies performed by Vladimir Parsons MD at [facility] OR ??? PARTIAL HIP REPLACEMENT Left ??? SIGMOIDOSCOPY N/A 10/05/2021 Sigmoidoscopy w/ Biopsy performed by Vladimir Parsons MD at [facility] OR ??? TUBAL LIGATION PE: Filed [...] st Contact Info) Description 08/03/2024 2:00 PM ELECTRIC SWITCH TESTER Appointment [facility] Day [address] [id number] Josué Cook MD [address] [facility] 8 [place] [address] documented as of this encounter Goals Goal Patient Goal Type Associated Problems Recent Progress Patient-Stated? Author HOME TO [facility] Vannessa Light RN documented as of this encounter Visit Diagnoses Diagnosis Colitis- Primary Other and unspecified noninfectious gastroenteritis and colitis documented in this encounter Additional Health Concerns Assessment Noted Time PHQ-9 Depression Total Score: 0 07/06/20 21 4:06 PM ELECTRIC SWITCH TESTER documented as of this encounter Care Teams Psychologist Research Assistant Relationship Specialty Start Date End Date Jared Abrams MD PCP - General 08/28/11 07/16/22 documented as of this encounter
--- OUTSIDE RECORDS SUMMARY | 2024-07-15 19:46 | XMS_ITS | Encounter Summary ---
Author Organization [facility] Address [address] [facility] [address] [place] [address] Care Team Providers Care Senior Ios Software Engineer Name Role Phone Jared Abrams MD Primary Care Provider [phone] Reason for Visit * Reason Onset Date Comments Appointment Request 07/12/2021 Encounter Details Date Type Department Care Team (Late st Contact Info) Description 07/12/2021 Telephone [facility] One Day Services [address] [place], [place] [phone] Vladimir Parsons MD [address] [place] [address] Appointment Request Social History Tobacco Use [...] COVID-19? No / Unsure 07/06/2021 2:18 PM SUPERVISOR MICROWAVE documented as of this encounter Functional Status [...] st Contact Info) Description 08/03/2024 2:00 PM SUPERVISOR MICROWAVE Appointment [facility] [address] [place] [address] Josué Cook MD [address] [address] documented as of this encounter Goals Goal Patient Goal Type Associated Problems Recent Progress Patient-Stated? Author HOME TO [facility] No Vannessa Blackwell RN documented as of this encounter Visit Diagnoses Not on filedocumented in this encounter Additional Health Concerns Assessment Noted Time PHQ-9 Depression Total Score: 0 07/06/20 21 4:06 PM SUPERVISOR MICROWAVE documented as of this encounter Care Teams Senior Ios Software Engineer Relationship Specialty Start Date End Date Jared Abrams MD PCP - General 08/28/11 07/16/22 documented as of this encounter
--- OUTSIDE RECORDS SUMMARY | 2024-07-15 19:46 | XMS_ITS | Encounter Summary ---
Author Organization [facility] Address [address] [place] [address] [place] [address] Care Team Providers Care Chief Operating Officer Name Role Phone Jared Abrams MD Primary Care Provider [phone] Reason for Visit * Reason Onset Date Comments Reschedule 09/20/2021 Encounter Details Date Type Department Care Team (Late st Contact Info) Description 09/20/2021 Telephone [facility]is[facility]ty [facility] - [facility] [address] [facility], [address] [place] [phone] Vladimir Parsons MD [address] [facility] [address] [place] [address] Reschedule Social History Tobacco Use Types Packs/Day [...] patient procedure rescheduled to 10/05/2021. Hospital informed. E SETTER GRINDER MACHINE * Laya Gaxiola - 09/20/2021 2:18 PM CST Pt called and stated that she contacted [facility] to cancel her colonoscopy with . Please give pt acall back to reschedule [phone] E SETTER GRINDER MACHINE * Kiersten Lanier - 09/20/2021 7:42 AM CST Lisa called today needing to reschedule her surgery tomorrow because of her not feeling well please call to discuss E SETTER GRINDER MACHINE documented in this encounter Plan of Treatment Upcoming Encounters Date Type Department Care Team (Late st Contact Info) Description 08/03/2024 2:00 PM KNIFE SETTER GRINDER MACHINE Appointment [facility] [address] [place] [address] Josué Cook MD [address] [address] documented as of this encounter Goals Goal Patient Goal Type Associated Problems Recent Progress Patient-Stated? Author HOME TO [facility] General No Vannessa Blackwell RN documented as of this encounter Visit Diagnoses Not on filedocumented in this encounter Additional Health Concerns Assessment Noted Time PHQ-9 Depression Total Score: 0 07/06/20 21 4:06 PM KNIFE SETTER GRINDER MACHINE documented as of this encounter Care Teams Chief Operating Officer Relationship Specialty Start Date End Date Jared Abrams MD PCP - General 08/28/11 07/16/22 documented as of this encounter
--- OUTSIDE RECORDS SUMMARY | 2024-07-15 19:46 | XMS_ITS | Encounter Summary ---
Author Organization [facility] Address [address] 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 ([facility] HHS/HCC) Ulcerative colitis with complication, unspecified location ([facility]) Ulcerative pancolitis Procedures SIGMOIDOSCOPY,DIAGNOSTIC SIGMOIDOSCOPY Referral ID Status Reason Start Date Expiration Date Visits Re quested Visits Authorized [id number] 1 1 Encounter Details Date Type Department Care Team (Late st Contact Info) Description 10/05/2021 10:15 AM SURGERY SCHEDULING COORDINATOR - 10/05/2021 10:36 AM SURGERY SCHEDULING COORDINATOR Surgery [facility] [address] [place] [address] Indigo Parsons MD [address] [place] [address] Sigmoidoscopy w/ Biopsy Surgery Details Date/Time Status [...] Coronavirus/COVID-19? No / Unsure 10/05/2021 9:27 AM SURGERY SCHEDULING COORDINATOR documented as of this encounter Last Filed Vital Signs Vital Sign Reading Time Taken Comments Blood Pressure 145/61 10/05/2021 9:49 AM SURGERY SCHEDULING COORDINATOR Pulse 63 10/05/2021 9:49 AM SURGERY SCHEDULING COORDINATOR Temperature 37.4 ??C (99.3 ??F) 10/05/2021 9:49 AM CS T Respiratory Rate 20 10/05/2021 9:49 AM SURGERY SCHEDULING COORDINATOR Oxygen Saturation 97% 10/05/2021 9:49 AM SURGERY SCHEDULING COORDINATOR Inhaled Oxygen Concentration - - Weight 72.6 kg (160 lb) 10/05/2021 9:49 AM SURGERY SCHEDULING COORDINATOR Height 157.5 cm (5' 2 ) 10/05/2021 9:49 AM SURGERY SCHEDULING COORDINATOR Body Mass Index 29.26 10/05/2021 9:49 AM SURGERY SCHEDULING COORDINATOR documented in this encounter Functional Status * [...] Ivett Moreno RN - 10/05/2021 11:52 AM SURGERY SCHEDULING COORDINATOR Images from the original note were not [...] bloody stools. Where can I learn more? [employer] https://familydoctor.org/condition/zpcysxplgvwd-etubn-xhonood-ibd/ NHS Choices https://www.nhs.uk/conditions/ulcerative-colitis/ Last Reviewed Date 2021-05-01 [...] by the Terms of Use, available at https://www.Orthocone.Jaman/en/solutions/lexicomp/about/alvaro Copyright Copyright ?? 2020 [employer]. and its affiliates and/or licensors. All rights reserved. ERY SCHEDULING COORDINATOR * Attachments The following attachments cannot be sent through Care Everywhere. * Flexible Sigmoidoscopy (Cambodian) documented in this encounter Medications at Time [...] biopsies performed by Indigo Parsons MD at [facility] OR ??? PARTIAL HIP REPLACEMENT [...] INDIGO PARSONS MD Voice recognition software utilized ERY SCHEDULING COORDINATOR documented in this encounter OR Notes * Op Note - Indigo Parsons MD - 10/05/2021 11:38 AM CST [facility] OpNote Sigmoidoscopy w/ Biopsy Procedure Note Radha Allen 10/05/2021 1015 Procedure(s) (LRB): Sigmoidoscopy w/ Biopsy (N/A) Surgeon(s): Indigo Parsons MD Staff: Circulating Nurse 1: Irais Ocasio RN Scrub Person 1: Jody Francisco, STRIP MACHINE OPERATOR Anesthesia: Local No anesthesia staff entered. Pre-Op [...] Time: 11:38 AM Voice recognition software utilized. ERY SCHEDULING COORDINATOR documented in this encounter Plan of Treatment Upcoming Encounters Date Type Department Care Team (Late st Contact Info) Description 08/03/2024 2:00 PM SURGERY SCHEDULING COORDINATOR Appointment [address] [address] Josué Cook MD [address] [address] documented as of this encounter Goals Goal Patient Goal Type Associated Problems Recent Progress Patient-Stated? 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 Department of Laboratory Medicine ?[address] ?[place] [address] ? , extension [phone] ? Pathology Report ? Surgical Pathology Report Name: RADHA ALLEN ? Specimen #: [id number] Age: 8 1945 (Age: 76) ?Location: [facility] Sex: F ?Procedure Date: 10/05/2021 Hospital #: [id number] ?Date Received: 10/08/2021 Date Reported: 10/09/2021 Provider: INDIGO PARSONS MD Source: Colon, left, biopsies Clinical History: Ulcerative pancolitis. Gross Description: Received in formalin, labeled with a patient label and as left colon biopsy are five pieces of garcia tissue ranging from 0.1 to 0.3 cm. ??The specimen is entirely submitted in cassette 1. Gross examination (when applicable), interpretation and sign-out were performed at [facility], [address] [place], [place], [address]. FINAL DIAGNOSIS: COLON, LEFT, BIOPSIES: ? - MODERATELY ACTIVE CHRONIC COLITIS. ? - NO GRANULOMAS OR DYSPLASIA. Electronically Signed Out ? NICOLA DAVILA MD [facility] Tissue specimen (specimen) COLON STRUCTURE / Unknown 10/05/2021 11:36 AM SURGERY SCHEDULING COORDINATOR us Indigo Parsons MD PATHOLOGY/CYTOLOGY ORDERABLES Fi nal Result [facility] [address] [place] [address], [id number] documented in this encounter Visit Diagnoses Diagnosis [...] Total Score: 0 07/06/20 21 4:06 PM SURGERY SCHEDULING COORDINATOR documented as of this encounter Care Teams Film Cutter Relationship Specialty Start Date End Date Jared Abrams MD PCP - General 08/28/11 07/16/22 documented as of this encounter
--- OUTSIDE RECORDS SUMMARY | 2024-07-15 19:46 | XMS_ITS | Encounter Summary ---
Author Organization [facility] Address [address] [facility] [place] [address] [place] [address] Care Team Providers Care Director Client Name Role Phone Jared Abrams MD Primary Care Provider [phone] Reason for Visit * Auth/Cert Specialty Diagnoses / Procedures Referred By Angel braswell Referred To Contact Diagnoses Colitis JENNY (acute kidney injury) ([facility]) Colitis Referral ID Status Reason Start Date Expiration Date Visits Re quested Visits Authorized [id number] 1 1 Encounter Details Date Type Department Care Team (Late st Contact Info) Description 03/22/2020 10:07 AM CDT Anesthesia Event [facility] [address] [place] [address] Rochelle García CRNA [address] [place] [address] Anesthesia Record Procedure Summary Procedure Name Responsible Anesthesiologist Anesthesia Start Time Anesthesia Stop Time colonoscopy with biopsies Rochelle García CRNA 03/22/20 1007 03/22/20 1026 Events Date Time Event Comment 03/22/2020 0931 0932 AN PHYSICAL PLANT EMPLOYEE Prepped 1007 An Start Patient ID and [...] st Contact Info) Description 08/03/2024 2:00 PM RESTAURANT KITCHEN MANAGER Appointment [address] [address] Josué Cook MD [address] [facility] 8 [place] [address] documented as of this encounter Goals Goal [...] mg documented in this encounter Care Teams Director Client Relationship Specialty Start Date End Date Jared Abrams MD PCP - General 08/28/11 07/16/22 documented as of this encounter
--- OUTSIDE RECORDS SUMMARY | 2024-07-15 19:46 | XMS_ITS | Encounter Summary ---
Author Organization [facility] Address [address] [facility] [place] [address] [place] [address] Care Team Providers Care Catcher Plug Name Role Phone Jared Abrams MD Primary Care Provider [phone] Encounter Details Date Type Department Care Team (Late st Contact Info) Description 09/04/2021 Orders Only [facility] Medical Group Multispecialty Care - [address] [place] [phone] Vladimir Parsons MD [address] [facility] [address] [place] [address] Social History Tobacco Use Types Packs/Day Years [...] st Contact Info) Description 08/03/2024 2:00 PM INTERNET ASSESSOR Appointment [facility] [id number] [place] [address] Josué Cook MD [address] [address] documented as of this encounter Goals Goal Patient Goal Type Associated Problems Recent Progress Patient-Stated? Author [facility] General No Vannessa Blackwell RN documented as of this encounter Visit Diagnoses Diagnosis Ulcerative pancolitis without complication (CMS/HCC [facility]/HCC)- Primary documented in this encounter Additional Health Concerns Assessment Noted Time PHQ-9 Depression Total Score: 0 07/06/20 21 4:06 PM INTERNET ASSESSOR documented as of this encounter Care Teams Catcher Plug Relationship Specialty Start Date End Date Jared Abrams MD PCP - General 08/28/11 07/16/22 documented as of this encounter
--- OUTSIDE RECORDS SUMMARY | 2024-07-15 19:46 | XMS_ITS | Encounter Summary ---
Author Organization [facility] Address [address] [facility] [place] [address] [place] [address] Care Team Providers Care Wind Turbine Mechanic Name Role Phone Jared Abrams MD Primary Care Provider [phone] Encounter Details Date Type Department Care Team [...] [facility]) Description 08/03/2024 2:00 PM SKI PATROL OFFICER Appointment [facility] [address] [place] [address] Josué Cook MD [address] [address] documented as of this encounter Goals Goal Patient Goal Type Associated Problems Recent Progress Patient-Stated? Author [facility] TO [facility] General No Vannessa Blackwell RN documented as of this encounter Visit Diagnoses Not on filedocumented in this encounter Care Teams Wind Turbine Mechanic Relationship Specialty Start Date End Date Jared Abrams MD PCP - General 08/28/11 07/16/22 documented as of this encounter
--- OUTSIDE RECORDS SUMMARY | 2024-07-15 19:46 | XMS_ITS | Encounter Summary ---
Author Organization [facility] Address [address] [facility] [place] [address] [place] [address] Care Team Providers Care Fig Washer Name Role Phone Jared Abrams MD Primary Care Provider [phone] Reason for Visit * Reason Onset Date Comments Diarrhea 05/09/2021 Encounter Details Date Type Department Care Team (Late st Contact Info) Description 05/09/2021 Telephone [facility] Medical Group Multispecialty Care - [facility] [address] [facility], [address] [place] [phone] Vladimir Parsons MD 3 [facility] [address] [place] [address] Diarrhea Social History Tobacco Use Types Packs/Day [...] 3:58 PM CDT Pt came to the [facility] and Dr. Parsons saw her * Hayley Leon - 05/09/2021 2:11 PM CDT Patient has been having diarrhea every day, and wants to know what she can take. Please follow up with patient. documented in this encounter Plan of Treatment Upcoming Encounters Date Type Department Care Team (Late st Contact Info) Description 08/03/2024 2:00 PM HOUSEKEEPING DIRECTOR Appointment [facility] [address] [place] [address] Josué Cook MD [address] [address] documented as of this encounter Goals Goal Patient Goal Type Associated Problems Recent Progress Patient-Stated? Author [facility] General No Vannessa Blackwell RN documented as of this encounter Visit Diagnoses Not on filedocumented in this encounter Care Teams Fig Washer Relationship Specialty Start Date End Date Jared Abrams MD PCP - General 08/28/11 07/16/22 documented as of this encounter
--- OUTSIDE RECORDS SUMMARY | 2024-07-15 19:46 | XMS_ITS | Encounter Summary ---
Author Organization [facility] Address [address] [facility] [address] [place] [address] Care Team Providers Care Reclamation Kettle Tender Name Role Phone Jared Abrams MD Primary Care Provider [phone] Reason for Visit * Auth/Cert Specialty Diagnoses / Procedures Referred By Angel braswell Referred To Contact Diagnoses Ulcerative pancolitis without complication ([facility] HHS/HCC) Ulcerative colitis with complication, unspecified location ([facility]) Ulcerative pancolitis Procedures SIGMOIDOSCOPY,DIAGNOSTIC SIGMOIDOSCOPY Referral ID Status Reason Start Date Expiration Date Visits Re quested Visits Authorized [id number] 1 1 Encounter Details Date Type Department Care Team (Latest Contact Info) Description 10/05/2021 9:20 AM ACETYLENE TORCH BURNER - 10/05/2021 12:00 PM [facility] Hospital Encounter [facility] [address] [place] [address] Indigo Parsons MD [address] [facility] [address] [address] Discharge Disposition: Home or Self Care (Routine [...] Coronavirus/COVID-19? No / Unsure 10/05/2021 9:27 AM ACETYLENE TORCH BURNER documented as of this encounter Last Filed Vital Signs Vital Sign Reading Time Taken Comments Blood Pressure 148/59 10/05/2021 11:40 AM ACETYLENE TORCH BURNER Pulse 72 10/05/2021 11:40 AM ACETYLENE TORCH BURNER Temperature 37.1 ??C (98.7 ??F) 10/05/2021 11:[address] Respiratory Rate 16 10/05/2021 11:40 AM ACETYLENE TORCH BURNER Oxygen Saturation 98% 10/05/2021 11:40 AM ACETYLENE TORCH BURNER Inhaled Oxygen Concentration - - Weight 72.6 kg (160 lb) 10/05/2021 9:49 AM ACETYLENE TORCH BURNER Height 157.5 cm (5' 2 ) 10/05/2021 9:49 AM ACETYLENE TORCH BURNER Body Mass Index 29.26 10/05/2021 9:49 AM ACETYLENE TORCH BURNER documented in this encounter Functional Status [...] Ivett Moreno RN - 10/05/2021 11:52 AM ACETYLENE TORCH BURNER Images from the original note were [...] bloody stools. Where can I learn more? [employer] https://familydoctor.org/condition/pzlauriuhyss-wdnpl-biljenv-ibd/ NHS Choices https://www.nhs.uk/conditions/ulcerative-colitis/ Last Reviewed Date 2021-05-01 [...] or approved for treating a specific patient. [employer] and its affiliates disclaim any warranty or liability relating to this information or the use thereof. The use of this information is governed by the Terms of Use, available at https://www.Sefas Innovation.RadiumOne/en/solutions/lexicomp/about/alvaro Copyright Copyright ?? 2020 UpToDate, Inc. and its affiliates and/or licensors. All rights reserved. YLENE TORCH BURNER * Attachments The following attachments cannot be sent through Care Everywhere. * Flexible Sigmoidoscopy (Bulgarian) documented in this encounter Medications at Time [...] biopsies performed by Indigo Parsons MD at [facility] OR ??? PARTIAL HIP REPLACEMENT [...] INDIGO PARSONS MD Voice recognition software utilized YLENE TORCH BURNER documented in this encounter OR Notes * Op Note - Indigo Parsons MD - 10/05/2021 11:38 AM CST [facility] OpNote Sigmoidoscopy w/ Biopsy Procedure Note Radhafatoumata Tolbert Alejandro 10/05/2021 1015 Procedure(s) (LRB): Sigmoidoscopy w/ Biopsy (N/A) Surgeon(s): Indigo Parsons MD Staff: Circulating Nurse 1: Irais Ocasio RN Scrub Person 1: Jody Francisco, COTTON WEIGHER OPERATOR Anesthesia: Local No anesthesia staff entered. [...] Time: 11:38 AM Voice recognition software utilized. YLENE TORCH BURNER documented in this encounter Plan of Treatment Upcoming Encounters Date Type Department Care Team (Late st Contact Info) Description 08/03/2024 2:00 PM ACETYLENE TORCH BURNER Appointment [facility] [address] [place] [address] Josué Cook MD [address] [facility] 8 [place] [address] documented as of this encounter Goals Goal Patient Goal Type Associated Problems Recent Progress Patient-Stated? Author HOME TO [facility] Vannessa Light RN documented as of this encounter Procedures Procedure Name Priority Date/Time Associated Diagnosis Comments SIGMOIDOSCOPY,FELICIANO GNOSTIC 10/05/2021 11:30 AM ACETYLENE TORCH BURNER Ulcerative pancolitis without complication (CMS/HCC HHS/HCC) Ulcerative colitis with complication, unspecified location (CMS/HCC HHS/HCC) Special Needs 1000 PATHOLOGY Routine 10/05/2021 12:00 AM ACETYLENE TORCH BURNER documented in this encounter Results * Pathology (10/05/2021 12:00 AM ACETYLENE TORCH BURNER) PATHOLOGY [facility] ? Department of Laboratory Medicine ?[address] ?[place] [address] ? , extension [phone] ? Pathology Report ? Surgical Pathology Report Name: RADHA ALLEN ? Specimen #: [id number] Age: 8 1945 (Age: 76) ?Location: [facility] Sex: F ?Procedure Date: 10/05/2021 Hospital #: [id number] ?Date Received: 10/08/2021 Date Reported: 10/09/2021 Provider: [...] interpretation and sign-out were performed at [facility], [address] [place] [address], [place], [place], [address]. FINAL DIAGNOSIS: COLON, LEFT, BIOPSIES: ? - MODERATELY ACTIVE CHRONIC COLITIS. ? - NO GRANULOMAS OR DYSPLASIA. Electronically Signed Out ? NICOLA DAVILA MD [facility] Tissue specimen (specimen) COLON STRUCTURE / Unknown 10/05/2021 11:36 AM ACETYLENE TORCH BURNER us Indigo Parsons MD PATHOLOGY/CYTOLOGY ORDERABLES Fi nal Result [facility] [address] [place] [address], [place] [phone] [id number] documented in this encounter Visit Diagnoses Diagnosis Ulcerative pancolitis without complication ([facility] HHS/HCC) Ulcerative colitis with complication, unspecified location ([facility] HHS/[facility]) Colitis Other and unspecified noninfectious gastroenteritis and colitis documented in this encounter Admitting Diagnoses Diagnosis Ulcerative pancolitis without complication ([facility] HHS/[facility]) Colitis Other and unspecified noninfectious gastroenteritis and colitis documented in this encounter Additional Health Concerns Assessment Noted Time PHQ-9 Depression Total Score: 0 07/06/20 21 4:06 PM ACETYLENE TORCH BURNER documented as of this encounter Care Teams Reclamation Kettle Tender Relationship Specialty Start Date End Date Jared Abrams MD PCP - General 08/28/11 07/16/22 documented as of this encounter
--- OUTSIDE RECORDS SUMMARY | 2024-07-15 19:46 | XMS_ITS | Encounter Summary ---
Author Organization [facility] Address [address] [facility] [place] [address] [place] [address] Care Team Providers Care Sheriff Officer Name Role Phone Jared Abrams MD Primary Care Provider [phone] Reason for Visit * Reason Onset Date Comments Hospital Follow Up 03/24/2020 Encounter Details Date Type Department Care Team (Late st Contact Info) Description 03/24/2020 Telephone [facility] Med/Surg [address] [place] [address] Rhonda Garber, RN Hospital Follow Up Social [...] (Late Contact Info) Description 08/03/2024 2:00 PM FLIGHT MECHANIC Appointment [facility] [address] [place] [address] Josué Cook MD [address] [facility] 8 [place] [address] documented as of this encounter Goals Goal Patient Goal Type Associated Problems Recent Progress Patient-Stated? Author [facility] TO [facility] General No Vannessa Blackwell RN documented as of this encounter Visit Diagnoses Not on filedocumented in this encounter Care Teams Sheriff Officer Relationship Specialty Start Date End Date Jared Abrams MD PCP - General 08/28/11 07/16/22 documented as of this encounter
--- OUTSIDE RECORDS SUMMARY | 2024-07-15 19:46 | XMS_ITS | Encounter Summary ---
Author Organization [facility] Address [address] [facility] [place] [address] [place] [address] Care Team Providers Care Nanoelectronics Engineer Name Role Phone Jared Abrams MD Primary Care Provider [phone] Reason for Visit * Reason Onset Date Comments Called To Cancel Office Appt. 07/12/2021 Encounter Details Date Type Department Care Team (Late st Contact Info) Description 07/12/2021 Telephone [facility] Medical Group Multispecialty Care - [facility] [address] [facility], [address] [place] [phone] Vladimir Parsons MD 3 [facility] [address] [place], [place] [phone] Called To Cancel Office Appt. Social History [...] COVID-19? No / Unsure 07/06/2021 2:18 PM HAT FORMING MACHINE OPERATOR documented as of this encounter [...] No follow up needed at this time. FORMING MACHINE OPERATOR documented in this encounter Plan of Treatment Upcoming Encounters Date Type Department Care Team (Late st Contact Info) Description 08/03/2024 2:00 PM HAT FORMING MACHINE OPERATOR Appointment [facility] [address] [place] [address] Josué Cook MD [address] [facility] 8 [place] [address] documented as of this encounter Goals Goal Patient Goal Type Associated Problems Recent Progress Patient-Stated? Author HOME TO [facility] No Vannessa Blackwell RN documented as of this encounter Visit Diagnoses Not on filedocumented in this encounter Additional Health Concerns Assessment Noted Time PHQ-9 Depression Total Score: 0 07/06/20 21 4:06 PM HAT FORMING MACHINE OPERATOR documented as of this encounter Care Teams Nanoelectronics Engineer Relationship Specialty Start Date End Date Jared Abrams MD PCP - General 08/28/11 07/16/22 documented as of this encounter
--- OUTSIDE RECORDS SUMMARY | 2024-07-15 19:46 | XMS_ITS | Encounter Summary ---
Author Organization [facility] Address [address] [facility] [place] [address] [place] [address] Care Team Providers Care Plant General Manager Name Role Phone Jared Abrams MD Primary Care Provider [phone] Encounter Details Date Type Department Care Team (Late st Contact Info) Description 07/10/2021 Orders Only [facility] Medical Group Multispecialty Care - [facility] [address] [facility] [address] [place] [address] Vladimir Parsons MD 3 [facility] [address] [place] [address] Social History Tobacco Use Types Packs/Day Years [...] COVID-19? No / Unsure 07/06/2021 2:18 PM CUSTOMS COMPLIANCE ANALYST documented as of this encounter Functional [...] st Contact Info) Description 08/03/2024 2:00 PM CUSTOMS COMPLIANCE ANALYST Appointment [facility] [address] [place] [address] Josué Cook MD [address] [address] documented as of this encounter Goals Goal Patient Goal Type Associated Problems Recent Progress Patient-Stated? Author HOME TO [facility] No Vannessa Blackwell RN documented as of this encounter Visit Diagnoses Diagnosis Ulcerative colitis with complication, unspecified location ([facility])- Primary documented in this encounter Additional Health Concerns Assessment Noted Time PHQ-9 Depression Total Score: 0 07/06/20 21 4:06 PM CUSTOMS COMPLIANCE ANALYST documented as of this encounter Care Teams Plant General Manager Relationship Specialty Start Date End Date Jared Abrams MD PCP - General 08/28/11 07/16/22 documented as of this encounter
--- OUTSIDE RECORDS SUMMARY | 2024-07-15 19:46 | XMS_ITS | Encounter Summary ---
Author Organization [facility] Address [address] [facility] [place] [address] [place] [address] Care Team Providers Care Trailer Tank Truck Driver Name Role Phone Jared Abrams MD Primary Care Provider [phone] Reason for Visit * Reason Comments Hospital Follow Up pt is getting better * Consultation/Treatment (Routine) - Closed Specialty Diagnoses / Procedures Referred By Angel braswell Referred To Contact GASTROENTEROLOGY Diagnoses Hospital f/u-EGD Procedures NEW PATIENT Vladimir Parsons MD 3 [facility] [address] [place] [address] Phone: tel: fax: Vladimir Parsons MD 3 [facility] [address] [place] [address] Phone: tel: fax: Referral ID Status Reason Start Date Expiration Date Visits Re quested Visits Authorized [id number] Closed 04/07/2020 04/07/2022 100 100 Encounter Details Date Type Department Care Team (Latest Contact Info) Description 04/07/2020 3:40 PM CDT Office Visit [facility] [address] [address] Vladimir Parsons MD 3 [facility] [address] [place] [address] Hospital Follow Up (pt is [...] biopsies performed by Vladimir Parsons MD at [facility] OR ??? PARTIAL HIP REPLACEMENT Left [...] st Contact Info) Description 08/03/2024 2:00 PM DYE WEIGHER Appointment [address] [address] Josué Cook MD [address] [facility] 8 [place] [address] documented as of this encounter Goals Goal Patient Goal Type Associated Problems Recent Progress Patient-Stated? Author [facility] TO [facility] General No Vannessa Blackwell, RN documented as of this encounter Visit Diagnoses Diagnosis Ulcerative colitis with complication, unspecified location (CMS/HCC [facility]/HCC)- Primary documented in this encounter Care Teams Trailer Tank Truck Driver Relationship Specialty Start Date End Date Jared Abrams MD PCP - General 08/28/11 07/16/22 documented as of this encounter
--- OUTSIDE RECORDS SUMMARY | 2024-07-15 19:46 | XMS_ITS | Encounter Summary ---
Author Organization [facility] Address [address] [facility] [place] [address] [place] [address] Care Team Providers Care Hydrometer Calibrator Name Role Phone Jared Abrams MD Primary Care Provider [phone] Reason for Visit * Reason Comments Ulcerative Colitis diarrhea * Consultation/Treatment (Routine) - Closed Specialty Diagnoses / Procedures Referred By Angel braswell Referred To Contact GASTROENTEROLOGY Diagnoses FU Procedures FOLLOW UP Jared Abrams MD [address] [place] [address] Phone: tel: fax: Vladimir Parsons MD [address] [address] Phone: tel: fax: Referral ID Status Reason Start Date Expiration Date Visits Re quested Visits Authorized [id number] Closed 11/16/2020 07/06/2022 100 100 Encounter Details Date Type Department Care Team (Latest Contact Info) Description 05/11/2021 2:40 PM CDT Office Visit [facility] Clinic [address] [address] Vladimir Parsons MD [address] [address] Ulcerative Colitis (diarrhea ) Social [...] biopsies performed by Vladimir Parsons MD at [facility] OR ??? PARTIAL HIP REPLACEMENT Left [...] Contact Info) Description 08/03/2024 2:00 PM HOSPITAL WELLNESS COORDINATOR Appointment [address] [address] Josué Cook MD [address] [address] documented as of this encounter Goals Goal Patient Goal Type Associated Problems Recent Progress Patient-Stated? Author [facility] General No Vannessa Blackwell, RN documented as of this encounter Visit Diagnoses Diagnosis Ulcerative colitis with complication, unspecified location (CMS/HCC [facility])- Primary documented in this encounter Care Teams Hydrometer Calibrator Relationship Specialty Start Date End Date Jared Abrams MD PCP - General 08/28/11 07/16/22 documented as of this encounter
--- OUTSIDE RECORDS SUMMARY | 2024-07-15 19:46 | XMS_ITS | Encounter Summary ---
Author Organization [facility] Address [address] [facility] [place] [address] [place] [address] Care Team Providers Care Hotel Desk Clerk Name Role Phone Jared Abrams MD Primary Care Provider [phone] Reason for Visit * Reason Onset Date Comments Prior Authorization 07/12/2021 Encounter Details Date Type Department Care Team (Late st Contact Info) Description 07/12/2021 Telephone [facility] Multispecialty Care - [facility] [address] [facility], [address] [place] [id number] Vladimir Parsons MD 3 [facility] [address] [place] [address] Prior Authorization Social History Tobacco Use Types [...] No / Unsure 07/06/2021 2:18 PM CERTIFIED ADAPTIVE PHYSICAL EDUCATOR documented as of this encounter Functional Status [...] auth for sigmoidoscopy is not required. Ref# [id number] IFIED ADAPTIVE PHYSICAL EDUCATOR documented in this encounter Plan of Treatment Upcoming Encounters Date Type Department Care Team (Late st Contact Info) Description 08/03/2024 2:00 PM CERTIFIED ADAPTIVE PHYSICAL EDUCATOR Appointment [facility] [id number] [place] [address] Josué Cook MD [address] [facility] [address] [place] [address] documented as of this encounter Goals Goal Patient Goal Type Associated Problems Recent Progress Patient-Stated? Author [facility] General Vannessa Light RN documented as of this encounter Visit Diagnoses Not on filedocumented in this encounter Additional Health Concerns Assessment Noted Time PHQ-9 Depression Total Score: 0 07/06/20 21 4:06 PM CERTIFIED ADAPTIVE PHYSICAL EDUCATOR documented as of this encounter Care Teams Hotel Desk Clerk Relationship Specialty Start Date End Date Jared Abrams MD PCP - General 08/28/11 07/16/22 documented as of this encounter
--- OUTSIDE RECORDS SUMMARY | 2024-07-15 19:46 | XMS_ITS | Encounter Summary ---
Author Organization [facility] Address [address] [facility] [place] [address] [place] [address] Care Team Providers Care Metal Machine Setter Name Role Phone Jared Abrams MD Primary Care Provider [phone] Encounter Details Date Type Department Care Team [...] Coronavirus/COVID-19? No / Unsure 10/05/2021 9:27 AM DRAFTER PATENT documented as of this encounter Functional Status [...] st Contact Info) Description 08/03/2024 2:00 PM DRAFTER PATENT Appointment [address] [address] Josué Cook MD [address] [address] documented as of this encounter Goals Goal Patient Goal Type Associated Problems Recent Progress Patient-Stated? Author [facility] General No Vannessa Blackwell RN documented as of this encounter Visit Diagnoses Not on filedocumented in this encounter Additional Health Concerns Assessment Noted Time PHQ-9 Depression Total Score: 0 07/06/20 21 4:06 PM DRAFTER PATENT documented as of this encounter Care Teams Metal Machine Setter Relationship Specialty Start Date End Date Jared Abrams MD PCP - General 08/28/11 07/16/22 documented as of this encounter
--- OUTSIDE RECORDS SUMMARY | 2024-07-15 19:46 | XMS_ITS | Encounter Summary ---
Author Organization [facility] Address [address] [facility] [place] [address] [place] [address] Care Team Providers Care Tunneling Machine Operator Name Role Phone Jared Abrams MD Primary Care Provider [phone] Reason for Visit * Reason Onset Date Comments Medication 10/12/2021 Encounter Details Date Type Department Care Team (Late st Contact Info) Description 10/12/2021 Telephone [facility] Medical [facility] Multispecialty Care - [facility] [address] [facility] [place] [phone] Corrina Muniz NP 3 [facility]. [place] [address] [place], [place] [id number] Medication Social History Tobacco Use Types Packs/Day [...] Coronavirus/COVID-19? No / Unsure 10/05/2021 9:27 AM CLINICAL QUALITY ASSURANCE ASSOCIATE documented as of this encounter Functional Status [...] Contact Info) Description 08/03/2024 2:00 PM CLINICAL QUALITY ASSURANCE ASSOCIATE Appointment [facility] [address] [place] [address] Josué Cook MD [address] [address] documented as of this encounter Goals Goal Patient Goal Type Associated Problems Recent Progress Patient-Stated? Author [facility] TO [facility] General No Vannessa Blackwell RN documented as of this encounter Visit Diagnoses Not on filedocumented in this encounter Additional Health Concerns Assessment Noted Time PHQ-9 Depression Total Score: 0 07/06/20 21 4:06 PM CLINICAL QUALITY ASSURANCE ASSOCIATE documented as of this encounter Care Teams Tunneling Machine Operator Relationship Specialty Start Date End Date Jaerd Abrams MD PCP - General 08/28/11 07/16/22 documented as of this encounter
--- OUTSIDE RECORDS SUMMARY | 2024-07-15 19:46 | XMS_ITS | Encounter Summary ---
Author Organization [facility] Address [address] [facility] [place] [address] [place] [address] Care Team Providers Care Drywaller Name Role Phone Jared Abrams MD Primary Care Provider [phone] Reason for Visit * Reason Comments Follow Up uc * Consultation/Treatment (Routine) - Closed Specialty Diagnoses / Procedures Referred By Angel braswell Referred To Contact GASTROENTEROLOGY Diagnoses FU Procedures FOLLOW UP Jared Abrams MD [address] [place] [address] Phone: tel: fax: Vladimir Parsons MD [address] [place] [address] Phone: tel: fax: Referral ID Status Reason Start Date Expiration Date Visits Re quested Visits Authorized [id number] Closed 11/16/2020 07/06/2022 100 100 Encounter Details Date Type Department Care Team (Late st Contact Info) Description 07/06/2021 2:40 PM HAND MEXICAN FOOD MAKER Office Visit [facility]ty Clinic [address] [address] Vladimir Parsons MD [address] [place] [address] Follow Up (uc) Social History Tobacco [...] COVID-19? No / Unsure 07/06/2021 2:18 PM HAND MEXICAN FOOD MAKER documented as of this encounter Last Filed Vital Signs Vital Sign Reading Time Taken Comments Blood Pressure 136/84 07/06/2021 3:14 PM HAND MEXICAN FOOD MAKER Pulse 72 07/06/2021 3:14 PM HAND MEXICAN FOOD MAKER Temperature 36.2 ??C (97.2 ??F) 07/06/2021 3:14 PM CS T Respiratory Rate - - Oxygen Saturation 95% 07/06/2021 3:14 PM HAND MEXICAN FOOD MAKER Inhaled Oxygen Concentration - - Weight 76.2 kg (168 lb) 07/06/2021 3:14 PM HAND MEXICAN FOOD MAKER Height 154.9 cm (5' 1 ) 07/06/2021 3:14 PM HAND MEXICAN FOOD MAKER Body Mass Index 31.74 07/06/2021 3:14 PM HAND MEXICAN FOOD MAKER documented in this encounter Functional Status * [...] biopsies performed by Vladimir Parsons MD at [facility] OR ??? PARTIAL HIP REPLACEMENT [...] PARSONS MD 07/07/2021 Voice recognition software utilized MEXICAN FOOD MAKER documented in this encounter Plan of Treatment Upcoming Encounters Date Type Department Care Team (Late st Contact Info) Description 08/03/2024 2:00 PM HAND MEXICAN FOOD MAKER Appointment [facility] [address] [place] [address] Josué Cook MD [address] [facility] 8 [place] [address] documented as of this encounter Goals Goal Patient Goal Type Associated Problems Recent Progress Patient-Stated? Author HOME TO [facility] General No Vannessa Blackwell RN documented as of this encounter Visit Diagnoses Diagnosis Ulcerative pancolitis without complication (CMS/HCC [facility]/HCC)- Primary documented in this encounter Additional Health Concerns Assessment Noted Time PHQ-9 Depression Total Score: 0 07/06/20 21 4:06 PM HAND MEXICAN FOOD MAKER documented as of this encounter Care Teams Drywaller Relationship Specialty Start Date End Date Jared Abrams MD PCP - General 08/28/11 07/16/22 documented as of this encounter
--- OUTSIDE RECORDS SUMMARY | 2024-07-15 19:46 | XMS_ITS | Encounter Summary ---
Author Organization [facility] Address [address] [place] [address] [place] [address] Care Team Providers Care Casino Attendant Name Role Phone Jared Abrams MD Primary Care Provider [phone] Reason for Visit * Reason Comments Ulcerative Colitis pt is here for a 3 m [facility] follow up, has questions regarding medication * Consultation/Treatment (Routine) - Closed Specialty Diagnoses / Procedures Referred By Angel t Referred To Contact GASTROENTEROLOGY Diagnoses FOLLOW UP Jared Abrams MD [facility] [place] [address] Phone: tel: fax: Vladimir Parsons MD [address] [address] Phone: tel: fax: Referral ID Status Reason Start Date Expiration Date Visits Re quested Visits Authorized [id number] Closed 07/07/2020 07/07/2022 100 100 Encounter Details Date Type Department Care Team (Latest Contact Info) Description 07/07/2020 3:40 PM RECREATIONAL FACILITIES MOTEL MANAGER Office Visit [facility] G[facility]ty Clinic [address] [address] Vladimir Parsons MD [address] [address] Ulcerative Colitis (pt is here [...] COVID-19? No / Unsure 07/07/2020 3:04 PM RECREATIONAL FACILITIES MOTEL MANAGER documented as of this encounter Last Filed Vital Signs Vital Sign Reading Time Taken Comments Blood Pressure 122/64 07/07/2020 3:30 PM RECREATIONAL FACILITIES MOTEL MANAGER Pulse 72 07/07/2020 3:30 PM RECREATIONAL FACILITIES MOTEL MANAGER Temperature - - Respiratory Rate 18 07/07/2020 3:30 PM RECREATIONAL FACILITIES MOTEL MANAGER Oxygen Saturation 96% 07/07/2020 3:30 PM RECREATIONAL FACILITIES MOTEL MANAGER Inhaled Oxygen Concentration - - Weight 73 kg (161 lb) 07/07/2020 3:30 PM RECREATIONAL FACILITIES MOTEL MANAGER Height 154.9 cm (5' 1 ) 07/07/2020 3:30 PM RECREATIONAL FACILITIES MOTEL MANAGER Body Mass Index 30.42 07/07/2020 3:30 PM RECREATIONAL FACILITIES MOTEL MANAGER documented in this encounter Functional Status * [...] in this encounter Progress Notes * Vladimir Pasrons MD - 07/07/2020 3:40 PM CST Images [...] biopsies performed by Vladimir Parsons MD at [facility] OR ??? PARTIAL HIP REPLACEMENT Left ??? [...] PARSONS MD 07/07/2020 Voice recognition software utilized EATIONAL FACILITIES MOTEL MANAGER documented in this encounter Plan of Treatment Upcoming Encounters Date Type Department Care Team (Late st Contact Info) Description 08/03/2024 2:00 PM RECREATIONAL FACILITIES MOTEL MANAGER Appointment [address] [address] Josué Cook MD [address] [facility] 8 [place] [address] documented as of this encounter Goals Goal Patient Goal Type Associated Problems Recent Progress Patient-Stated? Author [facility] TO [facility] General No Vannessa Blackwell RN documented as of this encounter Visit Diagnoses Diagnosis Ulcerative colitis with complication, unspecified location (CMS/HCC [facility]/HCC) documented in this encounter Care Teams Casino Attendant Relationship Specialty Start Date End Date Jared Abrams MD PCP - General 08/28/11 07/16/22 documented as of this encounter
--- OUTSIDE RECORDS SUMMARY | 2024-07-15 19:46 | XMS_ITS | Encounter Summary ---
Author Organization [facility] Address [address] [facility] [place] [address] [place] [address] Care Team Providers Care Cooling Room Attendant Name Role Phone Jared Abrams MD Primary Care Provider [phone] Encounter Details Date Type Department Care Team [...] Date Type Department Care Team (Late st [facility] Info) Description 08/03/2024 2:00 PM SUPERVISOR MOTOR VEHICLE ASSEMBLY Appointment [facility] [address] [place] [address] Josué Cook MD [address] [address] documented as of this encounter Goals Goal Patient Goal Type Associated Problems Recent Progress Patient-Stated? Author [facility] TO [facility]IV[facility] General No Vannessa Blackwell RN documented as of this encounter Visit Diagnoses Not on filedocumented in this encounter Care Teams Cooling Room Attendant Relationship Specialty Start Date End Date Jared Abrams MD PCP - General 08/28/11 07/16/22 documented as of this encounter
--- OUTSIDE RECORDS SUMMARY | 2024-07-15 19:46 | XMS_ITS | Encounter Summary ---
Author Organization [facility] Address [address] [place] [address] [place] [address] Care Team Providers Care Tree Cutter Name Role Phone Jared Abrams MD Primary Care Provider [phone] Reason for Referral * Surgical (Routine) - Closed Specialty Diagnoses / Procedures Referred By Angel braswell Referred To Contact Diagnoses Ulcerative pancolitis without complication ([facility]) Ulcerative colitis with complication, unspecified location ([facility]) Procedures Case request operating room: SIGMOIDOSCOPY DX WITH BRUSH/WASH Vladimir Parsons MD [address] [place] [address] [place] [address] Phone: tel: fax: Referral ID Status Reason Start Date Expiration Date Visits Re quested Visits Authorized [id number] Closed 09/21/2021 10/19/2022 1 1 INDUSTRIAL DEVELOPMENT CONSULTANT Encounter Details Date Type Department Care Team (Late st Contact Info) Description 09/21/2021 Orders Only [facility] Multispecialty Care - [address] [place] [id number] Vladimir Parsons MD [address] [place] [address] [address] [place], [place] [id number] Social History Tobacco Use Types Packs/Day Years [...] Status No 03/23/2020 1:13 PM CDT Hannah Raegan RN Active documented as of this encounter [...] st Contact Info) Description 08/03/2024 2:00 PM ECO INDUSTRIAL DEVELOPMENT CONSULTANT Appointment [facility] [address] [place] [address] Josué Cook MD [address] [facility] 8 [place] [address] Scheduled Orders Name Type Priority Associated Diagnoses Orde r Schedule Case request operating room: SIGMOIDOSCOPY DX WITH BRUSH/WASH Case Request Routine Ulcerative pancolitis without complication ([facility]) Ulcerative colitis with complication, unspecified location ([facility]) Expected: 09/28/2021, Expires: 09/21/2022 documented as of this encounter Goals Goal Patient Goal Type Associated Problems Recent Progress Patient-Stated? Author HOME TO [facility] General Vannessa Light RN documented as of this encounter Visit Diagnoses Diagnosis Ulcerative pancolitis without complication ([facility])- Primary Ulcerative colitis with complication, unspecified location ([facility]) documented in this encounter Additional Health Concerns Assessment Noted Time PHQ-9 Depression Total Score: 0 07/06/20 21 4:06 PM ECO INDUSTRIAL DEVELOPMENT CONSULTANT documented as of this encounter Care Teams Tree Cutter Relationship Specialty Start Date End Date Jared Abrams MD PCP - General 08/28/11 07/16/22 documented as of this encounter
--- OUTSIDE RECORDS SUMMARY | 2024-07-15 19:46 | XMS_ITS | Encounter Summary ---
Author Organization [facility] Address [address] [facility] [place] [address] [place] [address] Care Team Providers Care Gastroenterology Physician Name Role Phone Jared Abrams MD Primary Care Provider [phone] Encounter Details Date Type Department Care Team [...] COVID-19? No / Unsure 07/06/2021 2:18 PM SAMPLE COLLECTOR documented as of this encounter Functional Status [...] st Contact Info) Description 08/03/2024 2:00 PM SAMPLE COLLECTOR Appointment [facility] [id number] [place] [address] Josué Cook MD [address] [address] documented as of this encounter Goals Goal Patient Goal Type Associated Problems Recent Progress Patient-Stated? Author HOME TO [facility]IV[facility] General No Vannessa Blackwell RN documented as of this encounter Visit Diagnoses Not on filedocumented in this encounter Additional Health Concerns Assessment Noted Time PHQ-9 Depression Total Score: 0 07/06/20 21 4:06 PM SAMPLE COLLECTOR documented as of this encounter Care Teams Gastroenterology Physician Relationship Specialty Start Date End Date Jared Abrams MD PCP - General 08/28/11 07/16/22 documented as of this encounter
--- OUTSIDE RECORDS SUMMARY | 2024-07-15 19:46 | XMS_ITS | Encounter Summary ---
Author Organization [facility] Address [address] [facility] [place] [address] [place] [address] Care Team Providers Care Maintenance Team Member Name Role Phone Jared Abrams MD Primary Care Provider [phone] Encounter Details Date Type Department Care Team [...] Date Type Department Care Team (Late st [facility]) Description 08/03/2024 2:00 PM BILLING SPECIALIST Appointment [facility] [address] [place] [address] Josué Cook MD [address] [address] documented as of this encounter Goals Goal Patient Goal Type Associated Problems Recent Progress Patient-Stated? Author HOME TO [facility]DEP[facility]ENT LIV[facility] General No Vannessa Blackwell RN documented as of this encounter Visit Diagnoses Not on filedocumented in this encounter Care Teams Maintenance Team Member Relationship Specialty Start Date End Date Jared Abrams MD PCP - General 08/28/11 07/16/22 documented as of this encounter
--- OUTSIDE RECORDS SUMMARY | 2024-07-15 19:46 | XMS_ITS | Encounter Summary ---
Author Organization [facility] Address [address] [place] [address] [place] [address] Care Team Providers Care Materials Buyer Name Role Phone Jared Abrams MD Primary Care Provider [phone] Reason for Visit * Reason Onset Date Comments Medication 08/24/2021 Encounter Details Date Type Department Care Team (Late st Contact Info) Description 08/24/2021 Telephone [facility] Multispecialty Care - [facility] [address], [address] [place] [id number] Vladimir Parsons MD [address] [facility] [address] [place], [place] [id number] Medication Social History Tobacco Use Types Packs/Day [...] a few times phone line was busy. CIATE MANAGER * Riri Maldonado - 09/03/2021 1:02 PM CST Patient is calling Kimberley back. Call patient at [phone]. CIATE MANAGER * Kimberley Pang - 09/03/2021 11:26 AM CST Spoke with patient's daughter Aby message given. She will talk with her mom about rescheduling Flex-sig and call the office back. CIATE MANAGER * Kimberley Pang - 08/31/2021 9:27 AM CST LVM for pt to give the office a call back. CIATE MANAGER * Corrina Muniz NP - 08/28/2021 4:13 [...] make her more vulnerable to many conditions. CIATE MANAGER * Kimberley Pang - 08/28/2021 3:51 PM CST Spoke with patient's daughter patient was prescribed anti diarrhea medication by her pcp. She askedif Dr. Parsons would like her to take that medication? [facility] was diagnosedwith suspected Pseudogout. She asked if her ulcerative colitis caused it and how could it be avoided? CIATE MANAGER * Kimberley Pang - 08/27/2021 2:44 PM CST Returned patient's daughter call left a voicemail message. CIATE MANAGER * Rhonda Hopkins - 08/24/2021 9:38 AM CST Lisa's daughter called with some information and a question. Daughter stated that Lisa has been having diarrhea and on 08/09 her PCP prescribed her a medication that is contradicting to Lisa's condition. Please follow up with daughter at [phone] to discuss and advise. CIATE MANAGER documented in this encounter Plan of Treatment Upcoming Encounters Date Type Department Care Team (Late st Contact Info) Description 08/03/2024 2:00 PM ASSOCIATE MANAGER Appointment [facility] [address] [place] [address] [facility] [address] [place] [address] Josué Cook MD [address] [facility] [address] [place] [address] documented as of this encounter Goals Goal Patient Goal Type Associated Problems Recent Progress Patient-Stated? Author HOME TO [facility] General Vannessa Light RN documented as of this encounter Visit Diagnoses Not on filedocumented in this encounter Additional Health Concerns Assessment Noted Time PHQ-9 Depression Total Score: 0 07/06/20 21 4:06 PM ASSOCIATE MANAGER documented as of this encounter Care Teams Materials Buyer Relationship Specialty Start Date End Date Jared Abrams MD PCP - General 08/28/11 07/16/22 documented as of this encounter
--- OUTSIDE RECORDS SUMMARY | 2024-07-15 19:46 | XMS_ITS | Encounter Summary ---
Author Organization [facility] Address [address] [place] [address] [place] [address] Care Team Providers Care Payroll Analyst Name Role Phone Jared Abrams MD Primary Care Provider [phone] Encounter Details Date Type Department Care Team (Late st Contact Info) Description 10/05/[address] [facility] Multispecialty Care - [facility] [address] [place] [address] Vladimir Parsons MD [address] [place] [address] [address] [place] [address] Social History Tobacco Use Types Packs/Day Years [...] Coronavirus/COVID-19? No / Unsure 10/05/2021 9:27 AM [employer] WIRING TECHNICIAN documented as of this encounter Functional [...] st Contact Info) Description 08/03/2024 2:00 PM [employer] WIRING TECHNICIAN Appointment [facility] [address] [place] [address] Josué Cook MD [address] [address] documented as of this encounter Goals Goal Patient Goal Type Associated Problems Recent Progress Patient-Stated? Author HOME TO [facility] No Vannessa Blackwell RN documented as of this encounter Visit Diagnoses Diagnosis Ulcerative pancolitis without complication ([facility]) documented in this encounter Additional Health Concerns Assessment Noted Time PHQ-9 Depression Total Score: 0 07/06/20 21 4:06 PM [employer] WIRING TECHNICIAN documented as of this encounter Care Teams Payroll Analyst Relationship Specialty Start Date End Date Jared Abrams MD PCP - General 08/28/11 07/16/22 documented as of this encounter
--- OUTSIDE RECORDS SUMMARY | 2024-07-15 19:46 | XMS_ITS | Encounter Summary ---
Author Organization [facility] Address [address] [facility] [place] [address] [place] [address] Care Team Providers Care Graphic Arts Technician Name Role Phone Jared Leyva MD Primary Care Provider [phone] Reason for Referral * Imaging (Urgent) - Closed Specialty Diagnoses / Procedures Referred By Angel braswell Referred To Contact RADIOLOGY Procedures US RETROPERITONEAL COMP US RENAL ABDOMEN DUPLEX COMP Cara Alvarado APRN 1 [place] [address] Phone: tel: [phone] fax: Referral ID Status Reason Start Date Expiration Date Visits Re quested Visits Authorized [id number] Closed 03/20/2020 04/20/2021 1 1 * Surgical (Routine) - Closed Specialty Diagnoses / Procedures Referred By Angel braswell Referred To Contact Procedures Case request operating room: COLONOSCOPY DIAGNOSTIC WITH/WITHOUT SPECIMEN BRUSH/WASH Indigo Parsons MD [address] [address] Phone: tel: fax: Referral ID Status Reason Start Date Expiration Date Visits Re quested Visits Authorized [id number] Closed 03/21/2020 04/21/2021 1 1 * Imaging (Emergency) - Closed Specialty Diagnoses / Procedures Referred By Contclemencia t Referred To Contact RADIOLOGY Procedures CT ABD+PEL WO CON Mahesh Nelson MD Phone: tel: fax: Referral ID Status Reason Start Date Expiration Date Visits Re quested Visits Authorized [id number] Closed 03/19/2020 04/19/2021 1 1 Reason for Visit * Reason Comments Diarrhea * Auth/Cert Specialty Diagnoses / Procedures Referred By Contclemencia t Referred To Contact Diagnoses Colitis JENNY (acute kidney injury) ([facility]/HCC) Colitis Referral ID Status Reason Start Date Expiration Date Visits Re quested Visits Authorized [id number] 1 1 Encounter Details Date Type Department Care Team (Late st Contact Info) Description 03/19/2020 8:33 PM CDT - 03/23/2020 2:40 PM CDT Hospital Encounter [facility] [address] [place], [place] [id number] Mahesh Nelson MD [address] [place] [address] [phone] Durga Parekh MD [address] [place] [address] [phone] Cara Alvarado APRN [address] [place], [place] [id number] [phone] (Work) Pollo Hogue APRN [place], [place] [id number] Madison Aaron MD [place], [place] [id number] [phone] (Work) Diarrhea Discharge Disposition: Home or [...] No results for input(s): PH, PCO2, PO2, [id number], BICARBWB, BASEDEFICIT, BASEEXCESS in the [id number] hours. No results found for this or any previous visit. Radiology Reports : Results for orders placed or performed during the hospital encounter of 03/19/20 ECG 12 lead ?? Narrative ?? 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 CT ABD+PEL WO CON [[id number]] Collected: 03/20/20825 ?? Updated: 03/20/20834 Narrative: ?? [...] Your Medications These medications were sent to [id number] - [place], [place] - [address] [place] [address] [address] [facility] [id number] ?? ferrous sulfate EC 324 (65 Fe) [...] Care Everywhere. * Ulcerative Colitis Discharge Instructions (Turkish) * Diet for Ulcerative Colitis (Turkish) documented in this encounter Medications at Time [...] Mac RN - 03/23/2020 11:11 AM CDT [facility] for discharge planning @1100 with HOSPITALIST, PLASTIC PARTS DESIGNER, CM, UR, PASTORAL CARE, PHARMACY, CARDIOPULMONARY, OSTOMY RN, HH. F/u with Dr. Parsons (GI) after [...] 650 mg 650 mg Oral Q4H PRN Madsion Aaron MD ??? aspirin EC (ECOTRIN) tablet 81 mg 81 mg Oral nightly Madison Aaron MD 81 mg at 03/21/202021 ??? cefTRIAXone (ROCEPHIN) 1 g in sterile water 10 mL IV 1 g Intravenous Q24H Darah R Dodt, MEDICAL SONOGRAPHER 1 g at 03/22/20 1053 ??? enoxaparin (LOVENOX) 40 MG/0.4ML syringe 40 mg 40 mg Subcutaneous Q24H Darah R Kristent, MEDICAL SONOGRAPHER Stopped at 03/22/20 0918 ??? HYDROcodone-acetaminophen (NORCO) 5-325 MG tablet 1 tablet 1 tablet Oral Q4H PRN Madison Aaron MD ??? lactated ringers infusion Intravenous Continuous Indigo Parsons MD Stopped at 03/22/20 1045 ??? methylPREDNISolone sodium succinate (SOLU-Medrol) injection 40 mg 40 mg Intravenous Daily DarahR John, MEDICAL SONOGRAPHER 40 mg at 03/22/20 1438 ??? metroNIDAZOLE (FLAGYL) IVPB 500 mg 500 mg Intravenous Q8H Darmaribel R Kristent, MEDICAL SONOGRAPHER Stopped at 03/22/20 1153 ??? morphine injection [...] 0.9% infusion Intravenous Continuous Darah R Kristent, MEDICAL SONOGRAPHER 100 mL/hr at 03/22/20 1053 ??? 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 Updated: 03/20/20834 Narrative: ?? [...] Lovenox - Code status: Full POLLO HOGUE, MEDICAL SONOGRAPHER 03/22/2020 Patient was seen and examined separately [...] CASE MANAGEMENT, UR, NURSING, PT, OT, CARDIOPULMONARY, OSTOMY RN, HOSPITALIST HOME HEALTH,PASTORAL CARE, PHARMACY Meeting held at 1100. OSTOMY RN REPORTS BLOOD CULTURE POSITIVE. WILL NOT DC [...] 0.9 % 50 mL IVPB 3.375 g [id number] Durga Parekh MD 12.5 mL/hr at 03/21/20 [...] 03/19/[address] 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 Updated: 03/20/20834 Narrative: ?? [...] case management, UR, nursing, PT, OT, cardiopulmonary, OSTOMY RN, Hospitalist, Pastoral Care, and Pharmacy. Meeting held at 11:00. Plan for colonoscopy tomorrow. * Vannessa Blackwell RN - 03/20/2020 2:10 PM CDT [facility] C[facility] CONFERENCE: TEAM ATTENDANCE: CASE MANAGEMENT, UR, NURSING, PT, OT, CARDIOPULMONARY, OSTOMY RN, HOSPITALIST HOME HEALTH,PASTORAL CARE, PHARMACY Meeting held [...] Assistance No Behavior Oriented;Cooperative Communication Talks;Understands speaking;Understands Turkish Socioeconomic Needs Caregiver Needed No At Risk [...] of major lifestyle changes, including change in [facility] living environment No Family concerns/conflicts No Inadequate social and/or financial supports No Abuse and/or neglect of elder, adult or child No Psychiatric and/or substance abuse issues affecting current hospitalization No Homelessness with lack of safe discharge environment No Need for guardianship petition No Chaptered patient No LIVES ALONE. DAUGHTER IN AREA AND ASSISTS NEEDED. PATIENT IS VERY ACTIVE WITH [employer]. DENIES NEED FOR HOME HEALTH ARE OTHER SERVICES documented in this encounter H&P Notes * Cara Alvarado, MEDICAL SONOGRAPHER - 03/20/2020 9:10 AM CDT Hospitalist History [...] & Other Studies CT ABD+PEL WO CON [[id number]] Collected: 03/20/20825 Updated: 03/20/20834 Narrative: ?? 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 She noticed watery stools within a few [...] Parsons MD - 03/22/2020 10:27 AM CDT [facility] OpNote colonoscopy with biopsies Procedure Note Radha Allen 03/19/2020 - 03/22/2020 1142 Procedure(s) (LRB): colonoscopy with biopsies (N/A) Surgeon(s): Indigo Parsons MD Staff: Circulating Nurse 1: Miroslava Henderson RN hvac commercial salesperson: Jody Francisco, INSTRUCTION DEAN Anesthesia: * No anesthesia type entered * LOCKSTITCH TOPSTITCHER: Rochelle García CRNA Pre-Op Diagnosis: diarrhea and [...] encounter of 03/19/20 ECG 12 lead Narrative [facility] Test Date: 2020-03-19 Pat Name: RADHA ALLEN Department: Room: EXAM 101 Gender: Female 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 Patient returned home from [facility] and began having diarrhea. Has had stool samples, which werenegative. Patient c/o generalized weakness and family reports that she appears pale. Also, c/o hemorroids. documented in this encounter Plan of Treatment Upcoming Encounters Date Type Department Care Team (Late st Contact Info) Description 08/03/2024 2:00 PM POULTRY PICKER Appointment [facility] [address] [place] [address] Josué Cook MD [address] [facility] [address] [facility] [place] [address] Pending Results Name Type Priority Associated Diagnoses Date /Time Blood Bank - Specimen Hold Blood Bank Routine 03/19/2020 8:45 PM CDT documented as of this encounter Goals Goal Patient Goal Type Associated Problems Recent Progress Patient-Stated? Author HOME TO [facility] Vannessa Light RN documented as of [...] BASIC METABOLIC PANEL (03/30/2020 1:30 PM CDT) [facility] GLUCOSE 144(H) 70 - 99 MG/DL 03/30/2020 1:56 PM CDT [facility] BUN 12 7 - 18 MG/DL 03/30/2020 1:56 PM CDT [facility] CREATININE S/P/B 0.95 0.55 - 1.02 MG/DL 03/30/2020 1:56 PM CDT [facility] SODIUM S/P/B 141 136 - 145 MMOL/L 03/30/2020 1:56 PM CDT [facility] POTASSIUM S/P/B 3.4(L) 3.5 - 5.1 MMOL/L 03/30/2020 1:56 PM T [facility] CHLORIDE S/P/B 104 100 - 108 MMOL/L 03/30/2020 1:56 PM T [facility] CO2 28.8 21 - 32 MMOL/L 03/30/2020 1:56 PM T [facility] CALCIUM S/P/B 8.9 8.5 - 10.1 MG/DL 03/30/2020 1:56 PM T [facility] ANION GAP 8.2 5 - 15 MMOL/L 03/30/2020 1:56 PM T [facility] BUN CREATININE RATIO 12.6 6 - 26 03/30/2020 1:56 PM T [facility] EGFR NON-AFR. AMER. 58(L) >90 ML/MIN/1.7 3 M2 03/30/2020 1:56 PM T [facility] EGFR AFR. AMER. 67(L) >90 ML/MIN/1.7 3 M2 03/30/2020 1:56 PM CDT [facility] Comment: NOTE: eGFR is not calculated for patients <18 years of age. This is an estimated GFR (CKD EPI) and should not be used for calculating drug doses. 03/30/2020 1:30 PM CDT Obdulio Darian Hogue MEDICAL SONOGRAPHER LABORATORY Final Result [facility] [address] [place] [address], [place] [phone] * (ABNORMAL) CBC W/DIFF AUTOMATED (03/30/2020 1:30 PM CDT) WBC 12.7(H) 4.4 - 11.0 x10'3/uL 03/30/2020 1:45 PM CDT [facility] RBC 3.58(L) 4.50 - 5.10 x10'6/uL 03/30/2020 1:45 PM CDT [facility] HGB 9.2(L) 12.3 - 15.3 G/DL 03/30/2020 1:45 PM CDT [facility] HCT 30.1(L) 35.9 - 44.6 % 03/30/2020 1:45 PM CDT [facility] MCV 84.1 80.0 - 96.0 FL 03/30/2020 1:45 PM CDT [facility] MCH 25.7 25.3 - 30.9 PG 03/30/2020 1:45 PM CDT [facility] MCHC 30.6(L) 31.0 - 34.1 G/DL 03/30/2020 1:45 PM CDT [facility] RDW 20.0(H) 12.4 - 15.1 % 03/30/2020 1:45 PM CDT [facility] PLT 372(H) 151 - 353 x10'3/uL 03/30/2020 1:45 PM CDT [facility] MPV 8.6(L) 9.6 - 12.0 FL 03/30/2020 1:45 PM CDT [facility] SEG NEUTROPHILS 88(H) 42 - 72 % 0 1:59 PM CDT [facility] LYMPHOCYTES 9(L) 15.8 - 45.0 % 03/30/2020 1:59 PM CDT [facility] MONOCYTES 3(L) 5.7 - 12.5 % 03/30/2020 1:59 PM CDT [facility] ABS. NEUTROPHILS TOTAL 11.18(H) 1.40 - 6.00 x10'3/uL 03/30/2020 1:59 PM CDT [facility] ABS. LYMPHOCYTES 1.14 0.80 - 4.70 x10'3/uL 03/30/2020 1:59 PM CDT [facility] PLT MORPH. NORMAL 03/30/2020 1:59 PM CDT [facility] RBC MORPHOLOGY SLIGHT 03/30/2020 1:59 PM CDT [facility] Comment:ANISOCYTOSIS WBC MORPHOLOGY NORMAL 03/30/2020 1:59 PM CDT [facility] 03/30/2020 1:30 PM CDT us Pollo Hogue APRN LABORATORY Edited Result - Final [facility] [address] [place] [address], * (ABNORMAL) BASIC METABOLIC PANEL (03/23/2020 6:20 AM CDT) GLUCOSE 103(H) 70 - 99 MG/DL 03/23/2020 6:55 AM [facility] BUN 3(L) 7 - 18 MG/DL 03/23/2020 6:55 AM [facility] CREATININE S/P/B 1.07(H) 0.55 - 1.02 MG/DL 03/23/2020 6:55 AM [facility] SODIUM S/P/B 143 136 - 145 MMOL/L 03/23/2020 6:55 AM [facility] POTASSIUM S/P/B 3.7 3.5 - 5.1 MMOL/L 03/23/2020 6:55 AM [facility] CHLORIDE S/P/B 111(H) 100 - 108 MMOL/L 03/23/2020 6:55 AM [facility] CO2 23.4 21 - 32 MMOL/L 03/23/2020 6:55 AM [facility] CALCIUM S/P/B 7.1(L) 8.5 - 10.1 MG/DL 03/23/2020 6:55 AM [facility] ANION GAP 8.6 5 - 15 MMOL/L 03/23/2020 6:55 AM [facility] BUN CREATININE RATIO 2.8(L) 6 - 26 03/23/2020 6:55 AM [facility] EGFR NON-AFR. AMER. 50(L) >90 ML/MIN/1.7 3 M2 03/23/2020 6:55 AM [facility] EGFR AFR. AMER. 58(L) >90 ML/MIN/1.7 3 M2 03/23/2020 6:55 AM [facility] Comment: NOTE: eGFR is not calculated for patients <18 years of age. This is an estimated GFR (CKD EPI) and should not be used for calculating drug doses. 03/23/2020 6:20 AM CDT Pollo Farmer John MEDICAL SONOGRAPHER LABORATORY Final Result [facility] [address] [place] [address], [place] [phone] * (ABNORMAL) CBC W/DIFF AUTOMATED (03/23/2020 6:20 AM CDT) WBC 8.6 4.4 - 11.0 x10'3/uL 03/23/2020 6:44 AM CDT [facility] RBC 2.97(L) 4.50 - 5.10 x10'6/uL 03/23/2020 6:44 AM CDT [facility] HGB 7.7(L) 12.3 - 15.3 G/DL 03/23/2020 6:44 AM CDT [facility] HCT 24.1(L) 35.9 - 44.6 % 03/23/2020 6:44 AM CDT [facility] MCV 81.1 80.0 - 96.0 FL 03/23/2020 6:44 AM CDT [facility] MCH 25.9 25.3 - 30.9 PG 03/23/2020 6:44 AM CDT [facility] MCHC 32.0 31.0 - 34.1 G/DL 03/23/2020 6:44 AM CDT [facility] RDW 16.6(H) 12.4 - 15.1 % 03/23/2020 6:44 AM CDT [facility] PLT 342 151 - 353 x10'3/uL 03/23/2020 6:44 AM CDT [facility] MPV 8.4(L) 9.6 - 12.0 FL 03/23/2020 6:44 AM CDT [facility] RBC MORPHOLOGY NORMAL 03/23/2020 6:44 AM CDT [facility] PLT MORPH. NORMAL 03/23/2020 6:44 AM CDT [facility] WBC MORPHOLOGY NORMAL 03/23/2020 6:44 AM CDT [facility] LYMPHOCYTES % 27.2 15.8 - 45.0 % 03/23/2020 6:44 AM CDT [facility] NEUTROPHILS % 56.9 42.1 - 71.9 % 03/23/2020 6:44 AM CDT [facility] MONOCYTES % 11.2 5.7 - 12.5 % 03/23/2020 6:44 AM CDT [facility] EOSINOPHILS 0.2 0.0 - 5.6 % 03/23/2020 6:44 AM CDT [facility] BASOPHILS 0.2 0.0 - 1.3 % 03/23/2020 6:44 AM CDT [facility] ABS. NEUTROPHILS TOTAL 4.91 1.40 - 6.00 x10'3/uL 03/23/2020 6:44 AM CDT [facility] IMMATURE GRANS % 4.3(H) 0.0 - 0.5 % 03/23/2020 6:44 AM CDT [facility] ABS. LYMPHOCYTES 2.35 0.80 - 4.70 x10'3/uL 03/23/2020 6:44 AM T [facility] 03/23/2020 6:20 AM CDT us Pollo Hogue MEDICAL SONOGRAPHER LABORATORY Final Result [facility] [address] [place] [address], * (ABNORMAL) POCT glucose (03/22/2020 7:56 PM CDT) GLUCOSE POC 175(H) 70 - 110 mg/dL 03/22/2020 9:10 PM CDT [facility] 03/22/2020 7:56 PM CDT Pollo Hogue MEDICAL SONOGRAPHER POCT ORDERABLES - DEVICE Final Result Performing Organization Address [facility] Co de Phone Number [facility] [address] [place] [address], [place] [phone] * CULTURE, BACTERIA, BLOOD (03/22/2020 11:57 AM CDT) SPEC DESCRIPTION BLOOD 03/22/2020 9:30 AM CDT [facility] SPECIAL REQUESTS NO SPECIAL REQUEST 03/22/2020 9:30 AM CDT [facility] CULTURE RESULT NO GROWTH 5 DAYS 03/27/2020 2:05 PM CDT [facility] BLOOD SPECIMEN OBTAINED FOR BLOOD CULTURE / Unknown 03/22/2020 11:57 AM CDT 03/22/2020 12:07 PM CDT Pollo Hogue APRN MICROBIOLOGY - GENERAL ORDERAB LES Final Result Performing Organization Address [facility] Co de Phone Number [facility] [address] [place] [address], [place] [phone] [facility] [address] [place] [address], [place] [phone] * CULTURE, BACTERIA, BLOOD (03/22/2020 11:57 AM CDT) SPEC DESCRIPTION BLOOD 03/22/2020 9:30 AM CDT [facility] SPECIAL REQUESTS NO SPECIAL REQUEST 03/22/2020 9:30 AM CDT [facility] CULTURE RESULT NO GROWTH 5 DAYS 03/27/2020 2:05 PM CDT [facility] BLOOD SPECIMEN OBTAINED FOR BLOOD CULTURE / Unknown 03/22/2020 11:57 AM CDT 03/22/2020 12:07 PM CDT Pollo Farmer John MEDICAL SONOGRAPHER MICROBIOLOGY - GENERAL ORDERAB LES Final Result Performing Organization Address City/State/[facility] Co de Phone Number [facility] [address] [place] [address], [place] [phone] [facility] [address] [place] [address], [place] [phone] * Pathology (03/22/2020 10:20 AM CDT) Tissue specimen (specimen) COLON STRUCTURE / Unknown 03/22/2020 10:20 AM CDT Tissue specimen (specimen) COLON STRUCTURE / Unknown 03/22/2020 10:22 AM CDT Tissue specimen (specimen) SPECIMEN FROM RECTUM / Unknown 03/22/2020 10:24 AM CDT Narrative [facility] - 03/23/2020 5:19 PM CDT [facility] Date of Service: ??03/22/2020 Preoperative Diagnosis: ??Diarrhea [...] submitted entirely in block C. CPT Code: ??92314 x3 D: ??03/22/2020 02:17 PM #[id number] T: ??03/22/2020 04:47 PM /NTS A copy of this report has been sent to: [facility] [id number] PATHOLOGIC DIAGNOSIS: Right colon, colonoscopy with biopsies: [...] chronic ulcerative colitis. D: ??03/23/2020 04:21 PM #[id number] T: ??03/23/2020 05:09 PM /NTS Indigo Parsons MD PATHOLOGY/CYTOLOGY ORDERABLES Fi nal Result [facility] [address] [place] [address], * (ABNORMAL) BASIC METABOLIC PANEL (03/22/2020 6:55 AM CDT) GLUCOSE 88 70 - 99 MG/DL 03/22/2020 8:34 AM CDT [facility] BUN 5(L) 7 - 18 MG/DL 03/22/2020 8:34 AM CDT [facility] CREATININE S/P/B 0.82 0.55 - 1.02 MG/DL 03/22/2020 8:34 AM CDT [facility] SODIUM S/P/B 144 136 - 145 MMOL/L 03/22/2020 8:34 AM CDT [facility] POTASSIUM S/P/B 4.1 3.5 - 5.1 MMOL/L 03/22/2020 8:34 AM CDT [facility] CHLORIDE S/P/B 112(H) 100 - 108 MMOL/L 03/22/2020 8:34 AM CDT [facility] CO2 24.4 21 - 32 MMOL/L 03/22/2020 8:34 AM CDT [facility] CALCIUM S/P/B 7.0(L) 8.5 - 10.1 MG/DL 03/22/2020 8:34 AM CDT [facility] ANION GAP 7.6 5 - 15 MMOL/L 03/22/2020 8:34 AM T [facility] BUN CREATININE RATIO 6.1 03/22/2020 8:34 AM T [facility] EGFR NON-AFR. AMER. 70(L) >90 ML/MIN/1.7 3 M2 03/22/2020 8:34 AM T [facility] EGFR AFR. AMER. 81(L) >90 ML/MIN/1.7 3 M2 03/22/2020 8:34 AM T [facility] Comment: NOTE: eGFR is not calculated for patients <18 years of age. This is an estimated GFR (CKD EPI) and should not be used for calculating drug doses. 03/22/2020 6:55 AM CDT Pollo Hogue APRN LABORATORY Final Result [facility] [address] [place] [address], [place] [phone] * (ABNORMAL) CBC W/DIFF AUTOMATED (03/22/2020 6:55 AM CDT) WBC 6.6 4.4 - 11.0 x10'3/uL 03/22/2020 7:14 AM CDT [facility] RBC 3.12(L) 4.50 - 5.10 x10'6/uL 03/22/2020 7:14 AM CDT [facility] HGB 7.8(L) 12.3 - 15.3 G/DL 03/22/2020 7:14 AM T [facility] HCT 25.2(L) 35.9 - 44.6 % 03/22/2020 7:14 AM T [facility] MCV 80.8 80.0 - 96.0 FL 03/22/2020 7:14 AM T [facility] MCH 25.0(L) 25.3 - 30.9 PG 03/22/2020 7:14 AM [facility] MCHC 31.0 31.0 - 34.1 G/DL 03/22/2020 7:14 AM [facility] RDW 16.5(H) 12.4 - 15.1 % 03/22/2020 7:14 AM [facility] PLT 321 151 - 353 x10'3/uL 03/22/2020 7:14 AM T [facility] MPV 8.0(L) 9.6 - 12.0 FL 03/22/2020 7:14 AM [facility] RBC MORPHOLOGY NORMAL 03/22/2020 7:14 AM T [facility] PLT MORPH. NORMAL 03/22/2020 7:14 AM [facility] WBC MORPHOLOGY NORMAL 03/22/2020 7:14 AM T [facility] LYMPHOCYTES % 29.5 15.8 - 45.0 % 03/22/2020 7:14 AM [facility] NEUTROPHILS % 53.5 42.1 - 71.9 % 03/22/2020 7:14 AM T [facility] MONOCYTES % 11.0 5.7 - 12.5 % 03/22/2020 7:14 AM CDT [facility] EOSINOPHILS 1.7 0.0 - 5.6 % 03/22/2020 7:14 AM CDT [facility] BASOPHILS 0.5 0.0 - 1.3 % 03/22/2020 7:14 AM CDT [facility] ABS. NEUTROPHILS TOTAL 3.54 1.40 - 6.00 x10'3/uL 03/22/2020 7:14 AM CDT [facility] IMMATURE GRANS % 3.8(H) 0.0 - 0.5 % 03/22/2020 7:14 AM CDT [facility] ABS. LYMPHOCYTES 1.95 0.80 - 4.70 x10'3/uL 03/22/2020 7:14 AM CDT [facility] 03/22/2020 6:55 AM CDT Pollo Hogue APRN LABORATORY Final Result [facility] [address] [place] [address], * (ABNORMAL) IRON SAT PANEL (IRON,IBC,%SAT) (03/22/2020 6:55 AM CDT) IRON 33(L) 50 - 170 MCG/DL 03/22/2020 7:26 AM CDT [facility] IRON BINDING CAPACITY 133(L) 250 - 450 MCG/DL 03/22/2020 7:26 AM CDT [facility] IRON SATURATION 25 20 - 55 % 0 7:26 AM CDT [facility] 03/22/2020 6:55 AM CDT Durga Parekh MD LABORATORY Final Result [facility] [address] [place] [address], [place] [phone] * (ABNORMAL) VITAMIN B12 / FOLATE (03/22/2020 6:55 AM CDT) VITAMIN B12 S/P/B 4,687(H) 193 - 986 PG/ML 03/22/2020 8:34 AM CDT [facility] FOLATE 6.0(L) 8.6 - 58.9 NG/ML 03/22/2020 8:34 AM CDT [facility] 03/22/2020 6:55 AM CDT Durga Parekh MD LABORATORY Final Result Performing Organization Address [facility] Co de Phone Number [facility] [address] [place] [address], [place] [phone] * POCT glucose (03/22/2020 5:59 AM CDT) GLUCOSE POC 100 70 - 110 mg/dL 03/22/2020 6:11 AM CDT [facility] 03/22/2020 5:59 AM CDT Pollo Hogue APRN POCT ORDERABLES - DEVICE Final Result Performing Organization Address City/[facility]/ZIP Co de Phone Number [facility] [address] [place] [address], [place] [phone] * (ABNORMAL) POCT glucose (03/21/2020 8:25 PM CDT) GLUCOSE POC 137(H) 70 - 110 mg/dL 03/21/2020 8:55 PM CDT [facility] 03/21/2020 8:25 PM CDT Pollo Darian John MEDICAL SONOGRAPHER POCT ORDERABLES - DEVICE Final Result Performing Organization Address City/[facility]/ZIP Co de Phone Number [facility] [address] [place] [address], [place] [phone] * POCT glucose (03/21/2020 4:13 PM CDT) GLUCOSE POC 100 70 - 110 mg/dL 03/21/2020 5:30 PM CDT [facility] 03/21/2020 4:13 PM CDT Pollo Farmer John MEDICAL SONOGRAPHER POCT ORDERABLES - DEVICE Final Result Performing Organization Address [facility] Co de Phone Number [facility] [address] [place] [address], [place] [phone] * (ABNORMAL) BASIC METABOLIC PANEL (03/21/2020 12:09 PM CDT) GLUCOSE 100(H) 70 - 99 MG/DL 03/21/2020 12:42 PM CDT [facility] BUN 9 7 - 18 MG/DL 03/21/2020 12:42 PM CDT [facility] CREATININE S/P/B 0.84 0.55 - 1.02 MG/DL 03/21/2020 12:42 PM CDT [facility] SODIUM S/P/B 141 136 - 145 MMOL/L 03/21/2020 12:42 PM CDT [facility] POTASSIUM S/P/B 4.5 3.5 - 5.1 MMOL/L 03/21/2020 12:42 PM CDT [facility] CHLORIDE S/P/B 111(H) 100 - 108 MMOL/L 03/21/2020 12:42 PM CDT [facility] CO2 19.7(L) 21 - 32 MMOL/L 03/21/2020 12:42 PM CDT [facility] CALCIUM S/P/B 7.2(L) 8.5 - 10.1 MG/DL 03/21/2020 12:42 PM CDT [facility] ANION GAP 10.3 5 - 15 MMOL/L 03/21/2020 12:42 PM CDT [facility] BUN CREATININE RATIO 10.7 6 - 26 03/21/2020 12:42 PM CDT [facility] EGFR NON-AFR. AMER. 68(L) >90 ML/MIN/1.7 3 M2 03/21/2020 12:42 PM CDT [facility] EGFR AFR. AMER. 78(L) >90 ML/MIN/1.7 3 M2 03/21/2020 12:42 PM CDT [facility] Comment: NOTE: eGFR is not calculated for patients <18 years of age. This is an estimated GFR (CKD EPI) and should not be used for calculating drug doses. 03/21/2020 12:0 9 PM CDT Pollo Hogue APRN LABORATORY Final Result [facility] [address] [place] [address], * (ABNORMAL) CBC W/DIFF AUTOMATED (03/21/2020 12:09 PM CDT) WBC 7.3 4.4 - 11.0 x10'3/uL 03/21/2020 12:22 PM CDT [facility] RBC 3.22(L) 4.50 - 5.10 x10'6/uL 03/21/2020 12:22 PM CDT [facility] HGB 8.2(L) 12.3 - 15.3 G/DL 03/21/2020 12:22 PM CDT [facility] HCT 26.6(L) 35.9 - 44.6 % 03/21/2020 12:22 PM T [facility] MCV 82.6 80.0 - 96.0 FL 03/21/2020 12:22 PM CDT [facility] MCH 25.5 25.3 - 30.9 PG 03/21/2020 12:22 PM T [facility] MCHC 30.8(L) 31.0 - 34.1 G/DL 03/21/2020 12:22 PM T [facility] RDW 16.7(H) 12.4 - 15.1 % 03/21/2020 12:22 PM [facility] PLT 345 151 - 353 x10'3/uL 03/21/2020 12:22 PM T [facility] MPV 8.6(L) 9.6 - 12.0 FL 03/21/2020 12:22 PM T [facility] RBC MORPHOLOGY NORMAL 03/21/2020 12:22 PM [facility] PLT MORPH. NORMAL 03/21/2020 12:22 PM [facility] WBC MORPHOLOGY NORMAL 03/21/2020 12:22 PM [facility] LYMPHOCYTES % 23.1 15.8 - 45.0 % 03/21/2020 12:22 PM [facility] NEUTROPHILS % 60.5 42.1 - 71.9 % 03/21/2020 12:22 PM T [facility] MONOCYTES % 11.5 5.7 - 12.5 % 03/21/2020 12:22 PM [facility] EOSINOPHILS 1.5 0.0 - 5.6 % 03/21/2020 12:22 PM T [facility] BASOPHILS 0.5 0.0 - 1.3 % 03/21/2020 12:22 PM CDT [facility] ABS. NEUTROPHILS TOTAL 4.40 1.40 - 6.00 x10'3/uL 03/21/2020 12:22 PM CDT [facility] IMMATURE GRANS % 2.9(H) 0.0 - 0.5 % 03/21/2020 12:22 PM CDT [facility] ABS. LYMPHOCYTES 1.68 0.80 - 4.70 x10'3/uL 03/21/2020 12:22 PM CDT [facility] 03/21/2020 12:0 9 PM CDT us Pollo Hogue MEDICAL SONOGRAPHER LABORATORY Final Result Performing Organization Address City/State/[facility] Co de Phone Number [facility] [address] [place] [address], [place] [phone] * [place] RETROPERITONEAL COMP (03/21/2020 10:53 AM [...] COMPARISON: CT 03/19/2020 TECHNIQUE: Examination performed by commissioned security officer using grayscale with color flow and spectral Doppler. Selected images submitted for interpretation. Worksheet completed. Procedure Note Driss Garcia MD - 03/21/2020 IMAGING STUDIES:US RETROPERITONEAL COMP DATE: 03/21/2020 9:33 AM INDICATION: left renal lesion noted on CT COMPARISON: CT 03/19/2020 TECHNIQUE: Examination performed by commissioned security officer using grayscalewith color flow and spectral Doppler. [...] 105 x 46 x39 mm. Interpreted By: rDiss Garcia, 03/21/2020 12:23 PM Cara Alvarado MEDICAL SONOGRAPHER ULTRASOUND Final Re sult * POCT glucose (03/21/2020 6:07 AM CDT) GLUCOSE POC 107 70 - 110 mg/dL 03/21/2020 6:12 AM CDT [facility] 03/21/2020 6:07 AM CDT Durga Parekh MD POCT ORDERABLES - DEVICE Final Result [facility] [address] [place] [address], * O&P CONC&SMEAR TO REF LAB (03/20/2020 12:25 PM CDT) SPECIMEN SOURCE STOOL 0 12:54 PM CDT [facility] O & P EXAMINATION (STOOL) REPORT 03/29/2020 8:32 PM CDT [facility] Comment: Ova and Parasites, Concentrate and Permanent Smear Examination for Ova and Parasites SOURCE : STOOL Result/Comment: NO OVA AND PARASITES SEEN. Reference Range: ??No Ova and Parasites seen Routine Ova and Parasite Exam may not detect some parasites that occasionally cause diarrheal illness. Test code(s) 75420V[15968](Cryptosporidium Ag, DFA) and/or 09478E[34788] (Cyclospora and Isospora Exam) may be ordered to detect these parasites. One negative sample does not necessarily rule out the presence of a parasitic infection. Assay performed by wet mount after concentration. Parasite Exam, Trichrome Stain SOURCE : STOOL Result/Comment: NO OVA AND PARASITES SEEN. Routine Ova and Parasite Exam may not detect some parasites that occasionally cause diarrheal illness. Test code(s) 86413H[09692](Cryptosporidium Ag, DFA) and/or 82211W[63573] (Cyclospora and Isospora Exam) may be ordered to detect these parasites. One negative sample does not necessarily rule out the presence of a parasitic infection. For additional information, please refer to https://education.XPlace/faq/RYK617 (This link is being provided for informational/ educational purposes only.) Test Performed by [employer] [facility], [address] [place] [id number] Gamal Gao M.D., Ph.D., Director of Laboratories , CLIA [id number] STOOL SPECIMEN / Unknown 03/20/2020 12:25 PM CDT Durga Parekh MD MICROBIOLOGY - GENERAL ORDERAB LES Final Result [facility] [address] [place] [address], [place] [phone] [facility] [address] [place] [address], [place] [phone] * CLOSTRIDIUM DIFFICILE (03/20/2020 11:25 AM CDT) C DIFFICILE TOXIN (STOOL) NEGATIVE NEGATIVE 03/20/2020 2:14 PM CDT [facility] STOOL SPECIMEN / Unknown 03/20/2020 11:25 AM CDT Durga Parekh MD BODY FLUIDS AND STOOLS ORDERAB LES Final Result Performing Organization Address [facility]/ZIP Co de Phone Number [facility] [address] [place] [address], [place] [phone] * (ABNORMAL) LIPID PANEL (03/20/2020 5:30 AM CDT) CHOLESTEROL 51 <200.0 MG/DL 03/20/2020 6:40 AM CDT [facility] TRIGLYCERIDES 47 <150 MG/DL 03/20/2020 6:40 AM CDT [facility] HDL 36(L) >40.0 MG/DL 03/20/2020 6:40 AM CDT [facility] LDL (CALCULATED) 6 <100 MG/DL 03/20/20 20 6:40 AM CDT [facility] NON HDL CHOLESTEROL 15 <130 MG/DL 03/20 6:40 AM CDT [facility] CHOL/HDL RATIO 1.4 0.0 - 4.5 03/20/2020 6:40 AM CDT [facility] VLDL CALCULATION 9 5 - 55 MG/DL 03/20/2020 6:40 AM CDT [facility] LIPID INTERPRETATION 03/20/2020 6:40 AM CDT [facility] Comment: [facility] REPORT RECOMMENDATIONS: [...] MD LABORATORY Final Result Performing Organization Address City/[facility]/ZIP Co de Phone Number [facility] [address] [place] [address], * (ABNORMAL) MAGNESIUM (03/20/2020 5:30 AM CDT) MAGNESIUM 1.6(L) 1.8 - 2.4 MG/DL 03/20/2020 6:38 AM CDT [facility] 03/20/2020 5:30 AM CDT Madison Aaron MD LABORATORY Final Result Performing Organization Address [facility] Co de Phone Number [facility] [address] [place] [address], [place] [phone] * (ABNORMAL) BASIC METABOLIC PANEL (03/20/2020 5:30 AM CDT) GLUCOSE 74 70 - 99 MG/DL 03/20/2020 6:38 AM CDT [facility] BUN 24(H) 7 - 18 MG/DL 03/20/2020 6:38 AM CDT [facility] CREATININE S/P/B 1.59(H) 0.55 - 1.02 MG/DL 03/20/2020 6:38 AM CDT [facility] SODIUM S/P/B 140 136 - 145 MMOL/L 03/20/2020 6:38 AM CDT [facility] POTASSIUM S/P/B 5.0 3.5 - 5.1 MMOL/L 03/20/2020 6:38 AM CDT [facility] CHLORIDE S/P/B 110(H) 100 - 108 MMOL/L 03/20/2020 6:38 AM CDT [facility] CO2 20.2(L) 21 - 32 MMOL/L 03/20/2020 6:38 AM CDT [facility] CALCIUM S/P/B 7.4(L) 8.5 - 10.1 MG/DL 03/20/2020 6:38 AM CDT [facility] ANION GAP 9.8 5 - 15 MMOL/L 03/20/2020 6:38 AM CDT [facility] BUN CREATININE RATIO 15.1 6 - 26 03/20/2020 6:38 AM T [facility] EGFR NON-AFR. AMER. 31(L) >90 ML/MIN/1.7 3 M2 03/20/2020 6:38 AM CDT [facility] EGFR AFR. AMER. 36(L) >90 ML/MIN/1.7 3 M2 03/20/2020 6:38 AM T [facility] Comment: NOTE: eGFR is not calculated for patients <18 years of age. This is an estimated GFR (CKD EPI) and should not be used for calculating drug doses. 03/20/2020 5:30 AM CDT Madison Aaron MD LABORATORY Final Result [facility] [address] [place] [address], * (ABNORMAL) CBC W/DIFF AUTOMATED (03/20/2020 5:30 AM CDT) WBC 11.2(H) 4.4 - 11.0 x10'3/uL 03/20/2020 6:30 AM CDT [facility] RBC 3.10(L) 4.50 - 5.10 x10'6/uL 03/20/2020 6:30 AM CDT [facility] HGB 7.8(L) 12.3 - 15.3 G/DL 03/20/2020 6:30 AM CDT [facility] HCT 25.6(L) 35.9 - 44.6 % 03/20/2020 6:30 AM T [facility] MCV 82.6 80.0 - 96.0 FL 03/20/2020 6:30 AM [facility] MCH 25.2(L) 25.3 - 30.9 PG 03/20/2020 6:30 AM T [facility] MCHC 30.5(L) 31.0 - 34.1 G/DL 03/20/2020 6:30 AM [facility] RDW 16.1(H) 12.4 - 15.1 % 03/20/2020 6:30 AM [facility] PLT 336 151 - 353 x10'3/uL 03/20/2020 6:30 AM [facility] MPV 9.0(L) 9.6 - 12.0 FL 03/20/2020 6:30 AM [facility] RBC MORPHOLOGY NORMAL 03/20/2020 6:30 AM [facility] PLT MORPH. NORMAL 03/20/2020 6:30 AM [facility] WBC MORPHOLOGY NORMAL 03/20/2020 6:30 AM [facility] LYMPHOCYTES % 15.5(L) 15.8 - 45.0 % 03/20/2020 6:30 AM T [facility] NEUTROPHILS % 70.7 42.1 - 71.9 % 03/20/2020 6:30 AM T [facility] MONOCYTES % 11.5 5.7 - 12.5 % 03/20/2020 6:30 AM [facility] EOSINOPHILS 0.8 0.0 - 5.6 % 03/20/2020 6:30 AM [facility] BASOPHILS 0.3 0.0 - 1.3 % 03/20/2020 6:30 AM CDT [facility] ABS. NEUTROPHILS TOTAL 7.93(H) 1.40 - 6.00 x10'3/uL 03/20/2020 6:30 AM CDT [facility] IMMATURE GRANS % 1.2(H) 0.0 - 0.5 % 03/20/2020 6:30 AM CDT [facility] ABS. LYMPHOCYTES 1.74 0.80 - 4.70 x10'3/uL 03/20/2020 6:30 AM CDT [facility] 03/20/2020 5:30 AM CDT us Madison Aaron MD LABORATORY Final Result Performing Organization Address City/[facility]/ZIP Co de Phone Number [facility] [address] [place] [address], [place] [phone] * CULTURE, BACTERIA, BLOOD (03/20/2020 5:21 AM CDT) SPEC DESCRIPTION BLOOD 03/19/2020 11:05 PM CDT [facility] SPECIAL REQUESTS NO SPECIAL REQUEST 03/19/2020 11:05 PM CDT [facility] CULTURE RESULT NO GROWTH 5 DAYS 2020 3:42 PM CDT [facility] BLOOD SPECIMEN OBTAINED FOR BLOOD CULTURE / Unknown 03/20/2020 5:21 AM CDT 03/20/2020 5:22 AM CDT Mahesh Nelson MD MICROBIOLOGY - GENERAL MIA LEARY Final Result [facility] [address] [place] [address], [place] [phone] [facility] [address] [place] [address], [place] [phone] * (ABNORMAL) CULTURE, BACTERIA, BLOOD (03/20/2020 5:21 AM CDT) SPEC DESCRIPTION BLOOD 03/19/2020 11:05 PM CDT [facility] SPECIAL REQUESTS NO SPECIAL REQUEST 03/19/2020 11:05 PM CDT [facility] GRAM STAIN RESULT MODERATE GRAM POSITIVE COCCI RESEMBLING STAPHYLOCOCCUS SPECIES 03/22/2020 2:54 AM CDT [facility] CULTURE RESULT GROWTH OF STAPH. SPECIES NOT STAPH. AUREUS SUSCEPTIBILTY NOT ROUTINELY PERFORMED. SAVING ISOLATE FOR 5 DAYS. CONTACT MICROBIOLOGY DEPARTMENT IF FURTHER WORKUP IS INDICATED. (AA) 03/23/2020 9:47 AM CDT [facility] CULTURE RESULT CALLED TO AND READ BACK BY CHIKA BORREGO ON 03/22/20 AT 0250 BY [facility] 03/23/2020 9:47 AM CDT [facility] BLOOD SPECIMEN OBTAINED FOR BLOOD CULTURE / Unknown 03/20/2020 5:21 AM CDT 03/20/2020 5:22 AM CDT Mahesh Nelson MD MICROBIOLOGY - GENERAL MIA LEARY Final Result [facility] [address] [place] [address], [facility] [address] [place] [address], * ECG 12 lead (03/19/2020 11:20 PM CDT) 03/19/2020 11:2 0 PM CDT Narrative [facility] ([facility]) RAD - 03/20/2020 7:18 AM CDT ?[facility] ? Test Date: ?2020-03-19 Pat Name: ? RADHA ALLEN ? Department: ? Room: ? 120 Gender: ? Female ? 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 : ?1945 ? Requested By: MAHESH BRAHMAVAR Order Number: [id number] ? Reading MD: ?? Keven Gunter ? Measurements Intervals ?[place] ? Rate: ? 78 ? P: ?53 RI: ? 137 ?QRS: ?22 QRSD: ? 87 ? T: ?12 QT: ? 355 ? QTc: ?405 ? Interpretive Statements SINUS RHYTHM LOW QRS VOLTAGE IN PRECORDIAL LEADS ?? No previous ECG available for comparison Procedure Note Keven Gunter MD - 03/20/2020 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: : 1945 Requested By: MAHESH NELSON Order Number: [id number] Reading MD: Keven Gunter Measurements Intervals [place] Rate: 78 P: 53 RI: 137 QRS: 22 QRSD: 87 T: 12 QT: 355 QTc: 405 Interpretive Statements SINUS RHYTHM LOW QRS VOLTAGE IN PRECORDIAL LEADS No previous ECG available for comparison us Mahesh Nelson MD ECG ORDERABLES Final Resul t [facility] RAD * CT ABD+PEL WO CON (03/19/2020 [...] Pradeep Dejesus, 03/20/2020 8:26 AM Procedure Note Prdaeep Dejesus MD - 03/20/2020 IMAGING STUDIES: CT [...] - 2.0 MMOL/L 03/19/2020 9:24 PM CDT [facility] 03/19/2020 8:45 PM CDT us Mahesh Nelson MD LABORATORY Final Resul t Performing Organization Address [facility] Co de Phone Number [facility] [address] [place] [address], [place] [phone] * LIPASE (03/19/2020 8:45 PM CDT) LIPASE 74 73 - 393 UNITS/L 03/19/2020 9:19 PM CDT [facility] 03/19/2020 8:45 PM CDT us Mahesh Nelson MD LABORATORY Final Resul t Performing Organization Address [facility] Co de Phone Number [facility] [address] [place] [address], [place] [phone] * (ABNORMAL) COMPREHENSIVE METABOLIC PANEL (03/19/2020 8:45 PM CDT) GLUCOSE 107(H) 70 - 99 MG/DL 03/19/2020 9:19 PM CDT [facility] BUN 28(H) 7 - 18 MG/DL 03/19/2020 9:19 PM [facility] CREATININE S/P/B 2.27(H) 0.55 - 1.02 MG/DL 03/19/2020 9:19 PM [facility] SODIUM S/P/B 135(L) 136 - 145 MMOL/L 03/19/2020 9:19 PM [facility] POTASSIUM S/P/B 5.3(H) 3.5 - 5.1 MMOL/L 03/19/2020 9:19 PM [facility] CHLORIDE S/P/B 102 100 - 108 MMOL/L 03/19/2020 9:19 PM [facility] CO2 20.2(L) 21 - 32 MMOL/L 03/19/2020 9:19 PM [facility] CALCIUM S/P/B 8.4(L) 8.5 - 10.1 MG/DL 03/19/2020 9:19 PM [facility] BILIRUBIN TOTAL S/P/B 0.4 0.2 - 1.2 MG/DL 03/19/2020 9:19 PM [facility] TOTAL PROTEIN S/P/B 7.4 6.4 - 8.2 G/DL 03/19/2020 9:19 PM [facility] ALBUMIN S/P/B 2.5(L) 3.4 - 5.0 G/DL 03/19/2020 9:19 PM [facility] AST 21 15 - 37 U/L 03/19/2020 9:19 PM [facility] ALT 16 14 - 55 U/L 03/19/2020 9:19 PM [facility] ALKALINE PHOSPHATASE S/P/B 103 50 - 136 U/L 03/19/2020 9:19 PM [facility] ANION GAP 12.8 5 - 15 MMOL/L 03/19/2020 9:19 PM CDT [facility] BUN CREATININE RATIO 12.3 6 - 26 03/19/2020 9:19 PM CDT [facility] A/G RATIO 0.5(L) 1.0 - 2.0 RATIO 03/19/2020 9:19 PM CDT [facility] EGFR NON-AFR. AMER. 20(L) >90 ML/MIN/1.7 3 M2 03/19/2020 9:19 PM CDT [facility] EGFR AFR. AMER. 24(L) >90 ML/MIN/1.7 3 M2 03/19/2020 9:19 PM CDT [facility] Comment: NOTE: eGFR is not calculated for patients <18 years of age. This is an estimated GFR (CKD EPI) and should not be used for calculating drug doses. 03/19/2020 8:45 PM CDT us Mahesh Nelson MD LABORATORY Final Resul t [facility] [address] [place] [address], [place] [phone] * (ABNORMAL) CBC W/DIFF AUTOMATED (03/19/2020 8:45 PM CDT) WBC 18.1(H) 4.4 - 11.0 x10'3/uL 03/19/2020 9:03 PM CDT [facility] RBC 3.78(L) 4.50 - 5.10 x10'6/uL 03/19/2020 9:03 PM CDT [facility] HGB 9.5(L) 12.3 - 15.3 G/DL 03/19/2020 9:03 PM CDT [facility] HCT 31.0(L) 35.9 - 44.6 % 03/19/2020 9:03 PM CDT [facility] MCV 82.0 80.0 - 96.0 FL 03/19/2020 9:03 PM T [facility] MCH 25.1(L) 25.3 - 30.9 PG 03/19/2020 9:03 PM T [facility] MCHC 30.6(L) 31.0 - 34.1 G/DL 03/19/2020 9:03 PM T [facility] RDW 16.0(H) 12.4 - 15.1 % 03/19/2020 9:03 PM T [facility] PLT 476(H) 151 - 353 x10'3/uL 03/19/2020 9:03 PM T [facility] MPV 8.7(L) 9.6 - 12.0 FL 03/19/2020 9:03 PM T [facility] SEG NEUTROPHILS 76(H) 42 - 72 % 0 9:20 PM T [facility] BANDS 2 % 03/19/2020 9:20 PM T [facility] LYMPHOCYTES 13(L) 15.8 - 45.0 % 03/19/2020 9:20 PM T [facility] MONOCYTES 9 5.7 - 12.5 % 03/19/2020 9:20 PM T [facility] ABS. NEUTROPHILS TOTAL 14.12(H) 1.40 - 6.00 x10'3/uL 03/19/2020 9:20 PM T [facility] ABS. LYMPHOCYTES 2.35 0.80 - 4.70 x10'3/uL 03/19/2020 9:20 PM T [facility] PLT MORPH. NORMAL 03/19/2020 9:20 PM T [facility] RBC MORPHOLOGY NORMAL 03/19/2020 9:20 PM CDT [facility] WBC MORPHOLOGY NORMAL 03/19/2020 9:20 PM CDT [facility] 03/19/2020 8:45 PM CDT Mahesh Nelson MD LABORATORY Final Resul t [facility] [address] [facility] [place] [address], [place] [phone] documented in this encounter Visit Diagnoses Diagnosis Colitis- Primary Other and unspecified noninfectious gastroenteritis and colitis JENNY (acute kidney injury) ([facility]) Acute kidney failure, unspecified Colitis Other and unspecified noninfectious gastroenteritis and colitis Ulcerative colitis without complications, unspecified location ([facility]) Iron deficiency anemia, unspecified iron deficiency [...] Chika Hatfield, ELMO) 2049 (Given - Provider: hSu Pearl, ELMO) pharmacy to dose vancomycin placeholder(Linked [...] entered.) documented in this encounter Care Teams Graphic Arts Technician Relationship Specialty Start Date End Date Jared Leyva MD PCP - General 08/28/11 07/16/22 documented as of this encounter
--- OUTSIDE RECORDS SUMMARY | 2024-07-15 19:46 | XMS_ITS | Encounter Summary ---
Author Organization [facility] Address [address] [place] [address] [place] [address] Care Team Providers Care Mainframe Analyst Name Role Phone Jared Abrams MD Primary Care Provider [phone] Encounter Details Date Type Department Care Team [...] COVID-19? No / Unsure 07/07/2020 3:04 PM ABRASIVE GRADER documented as of this encounter Functional Status [...] Date Type Department Care Team (Late st [facility]) Description 08/03/2024 2:00 PM ABRASIVE GRADER Appointment [facility] [id number] [place] [id number] Josué Cook MD [address] [address] documented as of this encounter Goals Goal Patient Goal Type Associated Problems Recent Progress Patient-Stated? Author [facility]IV[facility] General No Vannessa Blackwell RN documented as of this encounter Visit Diagnoses Not on filedocumented in this encounter Care Teams Mainframe Analyst Relationship Specialty Start Date End Date Jared Abrams MD PCP - General 08/28/11 07/16/22 documented as of this encounter
--- OUTSIDE RECORDS SUMMARY | 2024-07-15 19:46 | XMS_ITS | Encounter Summary ---
Author Organization [facility] Address [address] [place] [address] [place] [address] Care Team Providers Care Clock Repair Technician Name Role Phone Jared Abrams MD Primary Care Provider [phone] Reason for Visit * Reason Onset Date Comments Reschedule 07/12/2021 Encounter Details Date Type Department Care Team (Late st Contact Info) Description 07/12/2021 Telephone [facility] - [facility] [address] [place] [id number] Vladimir Parsons MD [address] [facility] [address] [place] [address] Reschedule Social History Tobacco Use Types Packs/Day [...] No / Unsure 07/06/2021 2:18 PM MANAGER SECONDARY documented as of this encounter Functional Status [...] the office a call to reschedule procedure. GER SECONDARY * Kimberley Pang - 07/12/2021 2:01 PM CST ----- Message from Ivett Moreno RN sent at 07/12/2021 9:59 AM MANAGER SECONDARY ----- ----- Message from Ivett Moreno RN sent at 07/12/2021 9:58 AM MANAGER SECONDARY ----- Patient needs to be rescheduled. She fell at home and has a sore coccyx. GER SECONDARY documented in this encounter Plan of Treatment Upcoming Encounters Date Type Department Care Team (Late st Contact Info) Description 08/03/2024 2:00 PM MANAGER SECONDARY Appointment [facility] [address] [place] [address] Josué Cook MD [address] [facility] [address] [place] [address] documented as of this encounter Goals Goal Patient Goal Type Associated Problems Recent Progress Patient-Stated? Author [facility]IV[facility] General Vannessa Light RN documented as of this encounter Visit Diagnoses Not on filedocumented in this encounter Additional Health Concerns Assessment Noted Time PHQ-9 Depression Total Score: 0 07/06/20 21 4:06 PM MANAGER SECONDARY documented as of this encounter Care Teams Clock Repair Technician Relationship Specialty Start Date End Date Jared Abrams MD PCP - General 08/28/11 07/16/22 documented as of this encounter
--- OUTSIDE RECORDS SUMMARY | 2024-07-15 19:46 | XMS_ITS | Encounter Summary ---
Author Organization [facility] Address [address] [facility] [place] [address] [place] [address] Care Team Providers Care Tire Specialist Name Role Phone Jared Abrams MD Primary Care Provider [phone] Encounter Details Date Type Department Care Team (Latest Contact Info) Description 03/30/2020 1:25 PM CDT - 03/30/2020 11:59 PM CDT Hospital Encounter [facility] [address] [place] [address] Pollo Lopez, [facility] [place] [address] Discharge Disposition: Home or Self [...] st Contact Info) Description 08/03/2024 2:00 PM FREIGHT RATE ANALYST Appointment [facility] Day [address] [address] Josué Cook MD [address] [facility] 8 [place] [address] documented as of this encounter Goals Goal Patient Goal Type Associated Problems Recent Progress Patient-Stated? Author HOME TO [facility] Vannessa Light RN documented as of this encounter Procedures Procedure Name Priority Date/Time Associated Diagnosis Comments BASIC METABOLIC PANEL Routine 03/30/2020 1:30 PM CDT JENNY (acute kidney injury) Ulcerative colitis without complications, unspecified location ([facility]) CBC W/DIFF AUTOMATED Routine 03/30/2020 1:30 PM CDT Ulcerative colitis without complications, unspecified location ([facility]) Iron deficiency anemia, unspecified iron deficiency anemia type documented in this encounter Results * (ABNORMAL) CBC W/DIFF AUTOMATED (03/30/2020 1:30 PM CDT) WBC 12.7(H) 4.4 - 11.0 x10'3/uL 03/30/2020 1:45 PM CDT [facility] RBC 3.58(L) 4.50 - 5.10 x10'6/uL 03/30/2020 1:45 PM T [facility] HGB 9.2(L) 12.3 - 15.3 G/DL 03/30/2020 1:45 PM T [facility] HCT 30.1(L) 35.9 - 44.6 % 03/30/2020 1:45 PM CDT [facility] MCV 84.1 80.0 - 96.0 FL 03/30/2020 1:45 PM T [facility] MCH 25.7 25.3 - 30.9 PG 03/30/2020 1:45 PM T [facility] MCHC 30.6(L) 31.0 - 34.1 G/DL 03/30/2020 1:45 PM T [facility] RDW 20.0(H) 12.4 - 15.1 % 03/30/2020 1:45 PM T [facility] PLT 372(H) 151 - 353 x10'3/uL 03/30/2020 1:45 PM T [facility] MPV 8.6(L) 9.6 - 12.0 FL 03/30/2020 1:45 PM T [facility] SEG NEUTROPHILS 88(H) 42 - 72 % 0 1:59 PM CDT [facility] LYMPHOCYTES 9(L) 15.8 - 45.0 % 03/30/2020 1:59 PM T [facility] MONOCYTES 3(L) 5.7 - 12.5 % 03/30/2020 1:59 PM T [facility] ABS. [...] GENERAL HOSPITAL LAB 03/30/2020 1:30 PM CDT Pollo Lopez APRN LABORATORY Edited Result - Final [facility] [id number] [place] [id number], * (ABNORMAL) BASIC METABOLIC PANEL (03/30/2020 1:30 [...] - 5.1 MMOL/L 03/30/2020 1:56 PM CDT [facility] CHLORIDE S/P/B 104 100 - 108 MMOL/L 03/30/2020 1:56 PM CDT [facility] CO2 28.8 21 - 32 MMOL/L 03/30/2020 1:56 PM CDT [facility] CALCIUM S/P/B 8.9 8.5 - 10.1 MG/DL 03/30/2020 1:56 PM CDT [facility] ANION GAP 8.2 5 - 15 MMOL/L 03/30/2020 1:56 PM CDT [facility] BUN CREATININE RATIO 12.6 6 - 26 03/30/2020 1:56 PM CDT [facility] EGFR NON-AFR. AMER. 58(L) >90 ML/MIN/1.7 3 M2 03/30/2020 1:56 PM T [facility] EGFR AFR. AMER. 67(L) >90 ML/MIN/1.7 3 M2 03/30/2020 1:56 PM T [facility] Comment: NOTE: eGFR is not calculated for patients <18 years of age. This is an estimated GFR (CKD EPI) and should not be used for calculating drug doses. 03/30/2020 1:30 PM CDT Obdulio Darian Lopez COIL WINDER HAND LABORATORY Final Result [facility] [address] [facility] [id number], documented in this encounter Visit Diagnoses Diagnosis JENNY (acute kidney injury) ([facility]) Acute kidney failure, unspecified Ulcerative colitis without complications, unspecified location ([facility]) Iron deficiency anemia, unspecified iron deficiency anemia type documented in this encounter Care Teams Tire Specialist Relationship Specialty Start Date End Date Jared Abrams MD PCP - General 08/28/11 07/16/22 documented as of this encounter
--- OUTSIDE RECORDS SUMMARY | 2024-07-15 19:46 | XMS_ITS | Encounter Summary ---
Author Organization [facility] Address [address] [facility] [place] [address] [place] [address] Care Team Providers Care Marine Steamfitter Name Role Phone Jared Abrams MD Primary Care Provider [phone] Encounter Details Date Type Department Care Team (Late st Contact Info) Description 09/04/2021 Orders Only [facility] Multispecialty Care - [address] [place] [id number] Vladimir Parsons MD [address] [facility] [address] [place] [address] Social History Tobacco Use Types Packs/Day Years [...] with patient procedure scheduled for 09/21/2021 at [facility]. Flex sig instructions mailed to pt. PATROLLER documented in this encounter Plan of Treatment Upcoming Encounters Date Type Department Care Team (Late st Contact Info) Description 08/03/2024 2:00 PM LINE PATROLLER Appointment [facility] Day [facility] [address] [place], [place] [phone] Josué Cook MD [address] [facility] 8 [place] [address] documented as of this encounter Goals Goal Patient Goal Type Associated Problems Recent Progress Patient-Stated? Author HOME TO [facility] General No Vannessa Blackwell RN documented as of this encounter Visit Diagnoses Not on filedocumented in this encounter Additional Health Concerns Assessment Noted Time PHQ-9 Depression Total Score: 0 07/06/20 21 4:06 PM LINE PATROLLER documented as of this encounter Care Teams Marine Steamfitter Relationship Specialty Start Date End Date Jared Abrams MD PCP - General 08/28/11 07/16/22 documented as of this encounter
--- OUTSIDE RECORDS SUMMARY | 2024-07-15 19:47 | XMS_ITS | Encounter Summary ---
Author Organization [facility] Address [address] [facility] [place] [address] [place] [address] Care Team Providers Care Furniture Upholsterer Apprentice Name Role Phone Jared Abrams MD Primary Care Provider [phone] Encounter Details Date Type Department Care Team (Late Contact Info) Description 05/20/2008 Abstract [facility] CONVERSION [address] [place] [address] Scar Diaz MD [address] [place] [address] Social History Tobacco Use Types Packs/Day Years [...] (Late Contact Info) Description 08/03/2024 2:00 PM DATA SPECIALIST Appointment [facility] Day [facility] [address] [place], [place] [phone] Josué Cook MD [address] [facility] 8 [place] [address] documented as of this encounter Visit Diagnoses Not on filedocumented in this encounter Care Teams Furniture Upholsterer Apprentice Relationship Specialty Start Date End Date Jared Abrams MD PCP - General 08/28/11 07/16/22 documented as of this encounter
--- OUTSIDE RECORDS SUMMARY | 2024-07-15 19:47 | XMS_ITS | Encounter Summary ---
Author Organization [facility] Address [address] [place] [address] [place] [address] Care Team Providers Care Sign Language Interpreter Name Role Phone Jared Abrams MD Primary Care Provider [phone] Encounter Details Date Type Department Care Team (Late Contact Info) Description 09/14/2007 Abstract [facility] CONVERSION [address] [place] [address] Jared Abrams MD [address] [place] [address] Social History Tobacco Use Types Packs/Day Years [...] (Late Contact Info) Description 08/03/2024 2:00 PM BOX TOE STITCHER Appointment [facility] [address] [place] [address] Josué Cook MD [address] [place] [address] documented as of this encounter Visit Diagnoses Not on filedocumented in this encounter Care Teams Sign Language Interpreter Relationship Specialty Start Date End Date Jared Abrams MD PCP - General 08/28/11 07/16/22 documented as of this encounter
--- OUTSIDE RECORDS SUMMARY | 2024-07-15 19:47 | XMS_ITS | Encounter Summary ---
Author Organization [facility] Address [address] [facility] [place] [address] [place] [address] Care Team Providers Care Elevator Service Mechanic Name Role Phone Jared Abrams MD Primary Care Provider [phone] Encounter Details Date Type Department Care Team (Late Contact Info) Description 08/28/2006 Abstract [facility] CONVERSION [address] [facility] [place] [address] Scar Diaz MD [address] [place] [address] Social History Tobacco Use Types Packs/Day Years [...] Contact Info) Description 08/03/2024 2:00 PM INTERNAL COMMUNICATIONS INTERN Appointment [facility] [address] [place] [address] Josué Cook MD [address] [place] [address] 8 [place] [address] documented as of this encounter Visit Diagnoses Not on filedocumented in this encounter Care Teams Elevator Service Mechanic Relationship Specialty Start Date End Date Jared Abrams MD PCP - General 08/28/11 07/16/22 documented as of this encounter
--- OUTSIDE RECORDS SUMMARY | 2024-07-15 19:47 | XMS_ITS | Encounter Summary ---
Author Organization [facility] Address [address] [facility] [address] [place] [address] Care Team Providers Care Front Desk Attendant Name Role Phone Jared Abrams MD Primary Care Provider [phone] Encounter Details Date Type Department Care Team (Late Contact Info) Description 11/24/2007 Abstract [facility] [address] [place] [address] Jared Abrams MD [facility]2 [place] [address] Social History Tobacco Use Types Packs/Day Years [...] (Late Contact Info) Description 08/03/2024 2:00 PM OVAL OR CIRCULAR GLASS CUTTER Appointment [facility] Day [facility] [address] [place], [place] [phone] [place]ué [place] [address] [place] [address] documented as of this encounter Visit Diagnoses Not on filedocumented in this encounter Care Teams Front Desk Attendant Relationship Specialty Start Date End Date Jared Abrams MD PCP - General 08/28/11 07/16/22 documented as of this encounter
--- OUTSIDE RECORDS SUMMARY | 2024-07-15 19:47 | XMS_ITS | Encounter Summary ---
Author Organization [facility] Address [address] [facility] [place] [address] [place] [address] Care Team Providers Care Disciplinary Hearing Officer Name Role Phone Jared Abrams MD Primary Care Provider [phone] Encounter Details Date Type Department Care Team (Late st Contact Info) Description 03/22/2015 Abstract [facility] [address] [place] [address] Jared Abrams MD [address] [place] [address] Social History Tobacco Use Types Packs/Day Years [...] st Contact Info) Description 08/03/2024 2:00 PM PAPER CONE MACHINE TENDER Appointment [facility] [address] [place] [address] Josué Cook MD [address] [place] [address] documented as of this encounter Visit Diagnoses Diagnosis Other seborrheic keratosis documented in this encounter Care Teams Disciplinary Hearing Officer Relationship Specialty Start Date End Date Jared Abrams MD PCP - General 08/28/11 07/16/22 documented as of this encounter
--- OUTSIDE RECORDS SUMMARY | 2024-07-15 19:47 | XMS_ITS | Encounter Summary ---
Author Organization [facility] Address [address] [facility] [place] [address] [place] [address] Care Team Providers Care Window And Siding Craftsman Name Role Phone Jared Abrams MD Primary Care Provider [phone] Encounter Details Date Type Department Care Team (Late Contact Info) Description 03/19/2010 Abstract [facility] CONVERSION [address] [place] [address] Jared Abrams MD [address] [place] [address] Social History Tobacco Use Types Packs/Day Years [...] (Late Contact Info) Description 08/03/2024 2:00 PM [address]NER Appoint[address] [facility] [address] [place] [address] Josué Cook MD [address] [place] [address] documented as of this encounter Visit Diagnoses Not on filedocumented in this encounter Care Teams Window And Siding Craftsman Relationship Specialty Start Date End Date Jared Abrams MD PCP - General 08/28/11 07/16/22 documented as of this encounter
--- OUTSIDE RECORDS SUMMARY | 2024-07-15 19:47 | XMS_ITS | Encounter Summary ---
Author Organization [facility] Address [address] [facility] [place] [address] [place] [address] Care Team Providers Care Commercial Loan Processor Name Role Phone Jared Abrams MD Primary Care Provider [phone] Encounter Details Date Type Department Care Team (Late Contact Info) Description 05/19/2007 Abstract [facility] CONVERSION [address] [place] [address] Marii Rhodes PA-C [address] [place] [address] Social History Tobacco Use Types Packs/Day Years [...] st Contact Info) Description 08/03/2024 2:00 PM FURNACE HAND Appointment [facility] Day [facility] [address] [facility] [place] [phone] Josué Cook MD [facility] 8 [place] [address] documented as of this encounter Visit Diagnoses Not on filedocumented in this encounter Care Teams Commercial Loan Processor Relationship Specialty Start Date End Date Jared Abrams MD PCP - General 08/28/11 07/16/22 documented as of this encounter
--- OUTSIDE RECORDS SUMMARY | 2024-07-15 19:47 | XMS_ITS | Encounter Summary ---
Author Organization [facility] Address [address] [facility] [place] [address] [place] [address] Care Team Providers Care Digital Campaign Specialist Name Role Phone Jared Abrams MD Primary Care Provider [phone] Encounter Details Date Type Department Care Team (Late st Contact Info) Description 10/14/2012 Abstract [facility] [address] [place] [address] Jared Abrams MD [address] [place] [address] Social History Tobacco Use Types Packs/Day Years [...] st Contact Info) Description 08/03/2024 2:00 PM SANDER OPERATOR Appointment [facility] [address] [place] [address] Josué Cook MD [address] [place] [address] documented as of this encounter Visit Diagnoses Diagnosis Occlusion and stenosis of carotid artery Occlusion and stenosis of carotid artery without mention of cerebral infarction documented in this encounter Care Teams Digital Campaign Specialist Relationship Specialty Start Date End Date Jared Abrams MD PCP - General 08/28/11 07/16/22 documented as of this encounter
--- OUTSIDE RECORDS SUMMARY | 2024-07-15 19:47 | XMS_ITS | Encounter Summary ---
Author Organization [facility] Address [address] [place] [address] [place] [address] Care Team Providers Care Vehicle Mechanic Name Role Phone Jared Leyva MD Primary Care Provider [phone] Reason for Visit * Reason Comments Diarrhea * Auth/Cert Specialty Diagnoses / Procedures Referred By Contclemencia t Referred To Contact Diagnoses Colitis JENNY (acute kidney injury) ([facility]) Colitis Referral ID Status Reason Start Date Expiration Date Visits Re quested Visits Authorized [id number] 1 1 Encounter Details Date Type Department Care Team (Late st Contact Info) Description 03/22/2020 11:42 AM CDT - 03/22/2020 12:14 PM CDT Surgery [facility] [address] [place] [address] Indigo Parsons MD [address] [place] [address] [phone] colonoscopy with biopsies Surgery Details Date/Time Status [...] No results for input(s): PH, PCO2, PO2, Z3NDDDBMSLGH, BICARBWB, BASEDEFICIT, BASEEXCESS in the azwt465 hours. No results found for this or any previous visit. Radiology Reports : Results for orders placed or performed during the hospital encounter of 03/19/20 ECG 12 lead ?? Narrative ?? [facility] Test Date: 2020-03-19 Pat Name: RADHA ALLEN Department: Room: 120 Gender: Female Car Loader: : 1945 Requested By: MAHESH NELSON Order Number: [id number] Reading MD: Keven Gunter Measurements Intervals Adams Rate: 78 P: 53 VT: 137 QRS: 22 QRSD: 87 T: 12 QT: 355 QTc: 405 Interpretive Statements SINUS RHYTHM LOW QRS VOLTAGE IN PRECORDIAL LEADS No previous ECG available for comparison ?? CT ABD+PEL WO CON [[id number]] Collected: 03/20/20825 ?? Updated: 03/20/20834 Narrative: ?? [...] Your Medications These medications were sent to [id number] - [place], [place] - [address] [facility] [address] [address] [facility] [id number] ?? ferrous sulfate EC 324 (65 Fe) [...] Care Everywhere. * Ulcerative Colitis Discharge Instructions (S[place]an) * Diet for Ulcerative Colitis ([place]an) documented in this encounter Medications at Time [...] Mac RN - 03/23/2020 11:11 AM CDT [facility] for discharge planning @1100 with HOSPITALIST, FOOD ASSEMBLER, CM, UR, PASTORAL CARE, PHARMACY, CARDIOPULMONARY, HAND COLLATOR, HH. F/u with Dr. Parsons (GI) after [...] 1 g Intravenous Q24H Darmaribel R Kristent, PODIATRIC TECHNICIAN 1 g at 03/22/20 1053 ??? enoxaparin (LOVENOX) 40 MG/0.4ML syringe 40 mg 40 mg Subcutaneous Q24H Darmraibel R John, PODIATRIC TECHNICIAN Stopped at 03/22/20 0918 ??? HYDROcodone-acetaminophen (NORCO) 5-325 MG tablet 1 tablet 1 tablet Oral Q4H PRN Madison Aaron MD ??? lactated ringers infusion Intravenous Continuous Indigo Parsons MD Stopped at 03/22/20 1045 ??? methylPREDNISolone sodium succinate (SOLU-Medrol) injection 40 mg 40 mg Intravenous Daily DarmaribelR John, PODIATRIC TECHNICIAN 40 mg at 03/22/20 1438 ??? metroNIDAZOLE (FLAGYL) IVPB 500 mg 500 mg Intravenous Q8H Pollo R John, PODIATRIC TECHNICIAN Stopped at 03/22/20 1153 ??? morphine injection 2 mg 2 mg Intravenous Q2H PRN Madison Aaron MD ??? naLOXone (NARCAN) injection 0.4 mg 0.4 mg Intravenous PRN Madison Aaron MD ??? ondansetron (ZOFRAN) injection 4 mg 4 mg Intravenous Q8H PRN Madison Aarno MD ??? pantoprazole EC (PROTONIX) tablet 40 mg 40 mg Oral Nightly at bedtime Madison Aaron MD 40 mg at 03/21/202021 ??? pharmacy to dose vancomycin placeholder Intravenous See Admin Instructions Ruth Sharp MD ??? pravastatin (PRAVACHOL) tablet 40 mg 40 mg Oral Nightly at bedtime Madison Aaron MD 40 mg at 03/21/202021 ??? sodium chloride 0.9% infusion Intravenous Continuous Darmaribel R John, PODIATRIC TECHNICIAN 100 mL/hr at 03/22/20 1053 ??? [START ON 03/23/2020] vancomycin (VANCOCIN) 1,000 mg in sodium chloride 0.9 % 250 mL IVPB 1,000 mg Intravenous Q18H Darmaribel Darian Hogue, PODIATRIC TECHNICIAN ??? vitamin B-12 (CYANOCOBALAMIN) tablet 1,000 mcg [...] of 03/19/[address] [facility] Test Date: 2020-03-19 Pat Name: RADHA ALLEN Department: Room: 120 Gender: Female Car Loader: : 1945 Requested By: MAHESH NELSON Order Number: [id number] Reading MD: Keven Gunter Measurements Intervals Adams Rate: 78 P: 53 VT: 137 QRS: 22 QRSD: 87 T: 12 QT: 355 QTc: 405 Interpretive Statements SINUS RHYTHM LOW QRS VOLTAGE IN PRECORDIAL LEADS No previous ECG available for comparison CT ABD+PEL WO CON [[id number]] Collected: 03/20/20825 ?? Updated: 03/20/20834 Narrative: ?? [...] CASE MANAGEMENT, UR, NURSING, PT, OT, CARDIOPULMONARY, HAND COLLATOR, HOSPITALIST HOME HEALTH,PASTORAL CARE, PHARMACY Meeting held at 1100. HAND COLLATOR REPORTS BLOOD CULTURE POSITIVE. WILL NOT DC [...] 0.4 mg 0.4 mg Intravenous PRN Madison Aaorn MD ??? ondansetron (ZOFRAN) injection 4 mg 4 mg Intravenous Q8H PRN Madison Aaron MD ??? pantoprazole EC (PROTONIX) tablet 40 mg 40 mg Oral Nightly at bedtime Madison Aaron MD 40 mg at 03/20/202021 ??? piperacillin-tazobactam (ZOSYN) 3.375 g in sodium chloride 0.9 % 50 mL IVPB 3.375 g [id number] Durga Parekh MD 12.5 mL/hr at 03/21/20 [...] encounter of 03/19/20 ECG 12 lead Narrative [facility] Test Date: 2020-03-19 Pat Name: RADHA ALLEN Department: Room: 120 Gender: Female Car Loader: : 1945 Requested By: MAHESH NELSON Order Number: [id number] Reading MD: Keven Gunter Measurements Intervals Adams Rate: 78 P: 53 VT: 137 QRS: 22 QRSD: 87 T: 12 QT: 355 QTc: 405 Interpretive Statements SINUS RHYTHM LOW QRS VOLTAGE IN PRECORDIAL LEADS No previous ECG available for comparison CT ABD+PEL WO CON [[id number]] Collected: 03/20/20825 ?? Updated: 03/20/20834 Narrative: ?? [...] case management, UR, nursing, PT, OT, cardiopulmonary, HAND COLLATOR, Hospitalist, Pastoral Care, and Pharmacy. Meeting held at 11:00. Plan for colonoscopy tomorrow. * Vannessa Blackwell RN - 03/20/2020 2:10 PM CDT INTERDISCIPLINARY CARE CONFERENCE: TEAM ATTENDANCE: CASE MANAGEMENT, UR, NURSING, PT, OT, CARDIOPULMONARY, HAND COLLATOR, HOSPITALIST HOME HEALTH,PASTORAL CARE, PHARMACY Meeting held [...] Assistance No Behavior Oriented;Cooperative Communication Talks;Understands speaking;Understands [place]an Socioeconomic Needs Caregiver Needed No At Risk [...] of major lifestyle changes, including change in long goods drier living environment No Family concerns/conflicts No Inadequate social and/or financial supports No Abuse and/or neglect of elder, adult or child No Psychiatric and/or substance abuse issues affecting current hospitalization No Homelessness with lack of safe discharge environment No Need for guardianship petition No Chaptered patient No LIVES ALONE. DAUGHTER IN AREA AND ASSISTS NEEDED. PATIENT IS VERY ACTIVE WITH [facility]. DENIES NEED FOR HOME HEALTH ARE OTHER SERVICES documented in this encounter H&P Notes * Cara Alvarado, PODIATRIC TECHNICIAN - 03/20/2020 9:10 AM CDT Hospitalist History [...] file Gets together: Not on file Attends spiritism service: Not on file Active member of [...] & Other Studies CT ABD+PEL WO CON [[id number]] Collected: 03/20/20825 Updated: 03/20/2035 Narrative: ?? IMAGING [...] encounter of 03/19/20 ECG 12 lead Narrative [facility] Test Date: 2020-03-19 Pat Name: RADHA ALLEN Department: Room: 120 Gender: Female Car Loader: : 1945 Requested By: MAHESH NELSON Order Number: [id number] Reading MD: Keven Gunter Measurements Intervals Adams Rate: 78 P: 53 VT: 137 QRS: 22 QRSD: 87 T: 12 [...] - 03/20/2020 8:49 PM CDT I, DURGA PARKEH MD, performed a History and Physical examination [...] from [place]. While there she had immersion episcopal. 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 Test Date: 2020-03-19 Pat Name: RADHA ALLEN Department: Room: EXAM 101 Gender: Female Car Loader: : 1945 Requested By: MAHESH NELSON Order Number: [id number] Reading MD: Measurements Intervals Adams Rate: 78 P: 53 VT: 137 QRS: 22 QRSD: 87 T: 12 [...] Colitis Disposition: Admit Mahesh Nelson MD 03/19/20 9803 * Kaitlynn Amin RN - 03/19/2020 8:35 PM CDT Patient arrived via POV from home with c/o diarrhea, 5-6 loose stools in the past 24 hours, since September. Patient returned home from [facility] and began having diarrhea. Has had stool samples, which werenegative. Patient c/o generalized weakness and family reports that she appears pale. Also, c/o hemorroids. documented in this encounter Plan of Treatment Upcoming Encounters Date Type Department Care Team (Late st Contact Info) Description 08/03/2024 2:00 PM TITLE I INSTRUCTIONAL ASSISTANT Appointment [facility] [address] [place] [address] Josué Cook MD [address] [facility] [address] [place] [address] Pending Results Name Type Priority Associated Diagnoses Date /Time Blood Bank - Specimen Hold Blood Bank Routine 03/19/2020 8:45 PM CDT documented as of this encounter Goals Goal Patient Goal Type Associated Problems Recent Progress Patient-Stated? Author HOME TO INDEPENDENT LIVING [facility] Vannessa Light RN documented [...] BASIC METABOLIC PANEL (03/30/2020 1:30 PM CDT) [facility] Signature GLUCOSE 144(H) 70 - 99 MG/DL 03/30/2020 1:56 PM CDT [facility] BUN 12 7 - 18 MG/DL 03/30/2020 1:56 PM CDT [facility] CREATININE S/P/B 0.95 0.55 - 1.02 MG/DL 03/30/2020 1:56 PM CDT [facility] SODIUM S/P/B 141 136 - 145 MMOL/L 03/30/2020 1:56 PM T [facility] POTASSIUM S/P/B 3.4(L) 3.5 - 5.1 MMOL/L 03/30/2020 1:56 PM T [facility] CHLORIDE S/P/B 104 100 - 108 MMOL/L 03/30/2020 1:56 PM T [facility] CO2 28.8 21 - 32 MMOL/L 03/30/2020 1:56 PM T [facility] CALCIUM S/P/B 8.9 8.5 - 10.1 MG/DL 03/30/2020 1:56 PM T [facility] ANION GAP 8.2 5 - 15 MMOL/L 03/30/2020 1:56 PM T [facility] BUN CREATININE RATIO 12.6 6 - 26 03/30/2020 1:56 PM T [facility] EGFR NON-AFR. AMER. 58(L) >90 ML/MIN/1.7 3 M2 03/30/2020 1:56 PM [facility] EGFR AFR. AMER. 67(L) >90 ML/MIN/1.7 3 M2 03/30/2020 1:56 PM T [facility] Comment: NOTE: eGFR is not calculated for patients <18 years of age. This is an estimated GFR (CKD EPI) and should not be used for calculating drug doses. 03/30/2020 1:30 PM CDT Pollo Hogue PODIATRIC TECHNICIAN LABORATORY Final Result [facility] [address] [place] [address], * (ABNORMAL) CBC W/DIFF AUTOMATED (03/30/2020 1:30 PM CDT) WBC 12.7(H) 4.4 - 11.0 x10'3/uL 03/30/2020 1:45 PM CDT [facility] RBC 3.58(L) 4.50 - 5.10 x10'6/uL 03/30/2020 1:45 PM CDT [facility] HGB 9.2(L) 12.3 - 15.3 G/DL 03/30/2020 1:45 PM CDT [facility] HCT 30.1(L) 35.9 - 44.6 % 03/30/2020 1:45 PM CDT [facility] MCV 84.1 80.0 - 96.0 FL 03/30/2020 1:45 PM CDT [facility] MCH 25.7 25.3 - 30.9 PG 03/30/2020 1:45 PM CDT [facility] MCHC 30.6(L) 31.0 - 34.1 G/DL 03/30/2020 1:45 PM CDT [facility] RDW 20.0(H) 12.4 - 15.1 % 03/30/2020 1:45 PM CDT [facility] PLT 372(H) 151 - 353 x10'3/uL 03/30/2020 1:45 PM CDT [facility] MPV 8.6(L) 9.6 - 12.0 FL 03/30/2020 1:45 PM CDT [facility] SEG NEUTROPHILS 88(H) 42 - 72 % 0 1:59 PM CDT [facility] LYMPHOCYTES 9(L) 15.8 - 45.0 % 03/30/2020 1:59 PM CDT [facility] MONOCYTES 3(L) 5.7 - 12.5 % 03/30/2020 1:59 PM CDT [facility] ABS. NEUTROPHILS TOTAL 11.18(H) 1.40 - 6.00 x10'3/uL 03/30/2020 1:59 PM CDT [facility] ABS. LYMPHOCYTES 1.14 0.80 - 4.70 x10'3/uL 03/30/2020 1:59 PM CDT [facility] PLT MORPH. NORMAL 03/30/2020 1:59 PM CDT [facility] RBC MORPHOLOGY SLIGHT 03/30/2020 1:59 PM CDT [facility] Comment:ANISOCYTOSIS WBC MORPHOLOGY NORMAL 03/30/2020 1:59 PM CDT [facility] 03/30/2020 1:30 PM CDT Pollo Hogue APRN LABORATORY Edited Result - Final [facility] [address] [place] [address], [place] [phone] * (ABNORMAL) BASIC METABOLIC PANEL (03/23/2020 6:20 AM CDT) [facility] GLUCOSE 103(H) 70 - 99 MG/DL 03/23/2020 6:55 AM CDT [facility] BUN 3(L) 7 - 18 MG/DL 03/23/2020 6:55 AM T [facility] CREATININE S/P/B 1.07(H) 0.55 - 1.02 MG/DL 03/23/2020 6:55 AM [facility] SODIUM S/P/B 143 136 - 145 MMOL/L 03/23/2020 6:55 AM [facility] POTASSIUM S/P/B 3.7 3.5 - 5.1 MMOL/L 03/23/2020 6:55 AM [facility] CHLORIDE S/P/B 111(H) 100 - 108 MMOL/L 03/23/2020 6:55 AM [facility] CO2 23.4 21 - 32 MMOL/L 03/23/2020 6:55 AM [facility] CALCIUM S/P/B 7.1(L) 8.5 - 10.1 MG/DL 03/23/2020 6:55 AM [facility] ANION GAP 8.6 5 - 15 MMOL/L 03/23/2020 6:55 AM [facility] BUN CREATININE RATIO 2.8(L) 6 - 03/23/2020 6:55 AM [facility] EGFR NON-AFR. AMER. 50(L) >90 ML/MIN/1.7 3 M2 03/23/2020 6:55 AM [facility] EGFR AFR. AMER. 58(L) >90 ML/MIN/1.7 3 M2 03/23/2020 6:55 AM [facility] Comment: NOTE: eGFR is not calculated for patients <18 years of age. This is an estimated GFR (CKD EPI) and should not be used for calculating drug doses. 03/23/2020 6:20 AM CDT Pollo Hogue APRN LABORATORY Final Result [facility] [address] [place] [address], * (ABNORMAL) CBC W/DIFF AUTOMATED (03/23/2020 6:20 AM CDT) WBC 8.6 4.4 - 11.0 x10'3/uL 03/23/2020 6:44 AM CDT [facility] RBC 2.97(L) 4.50 - 5.10 x10'6/uL 03/23/2020 6:44 AM CDT [facility] HGB 7.7(L) 12.3 - 15.3 G/DL 03/23/2020 6:44 AM CDT [facility] HCT 24.1(L) 35.9 - 44.6 % 03/23/2020 6:44 AM CDT [facility] MCV 81.1 80.0 - 96.0 FL 03/23/2020 6:44 AM CDT [facility] MCH 25.9 25.3 - 30.9 PG 03/23/2020 6:44 AM CDT [facility] MCHC 32.0 31.0 - 34.1 G/DL 03/23/2020 6:44 AM CDT [facility] RDW 16.6(H) 12.4 - 15.1 % 03/23/2020 6:44 AM CDT [facility] PLT 342 151 - 353 x10'3/uL 03/23/2020 6:44 AM CDT [facility] MPV 8.4(L) 9.6 - 12.0 FL 03/23/2020 6:44 AM CDT [facility] RBC MORPHOLOGY NORMAL 03/23/2020 6:44 AM CDT [facility] PLT MORPH. NORMAL 03/23/2020 6:44 AM CDT [facility] WBC MORPHOLOGY NORMAL 03/23/2020 6:44 AM CDT [facility] LYMPHOCYTES % 27.2 15.8 - 45.0 % 03/23/2020 6:44 AM CDT [facility] NEUTROPHILS % 56.9 42.1 - 71.9 % 03/23/2020 6:44 AM CDT [facility] MONOCYTES % 11.2 5.7 - 12.5 % 03/23/2020 6:44 AM CDT [facility] EOSINOPHILS 0.2 0.0 - 5.6 % 03/23/2020 6:44 AM CDT [facility] BASOPHILS 0.2 0.0 - 1.3 % 03/23/2020 6:44 AM CDT [facility] ABS. NEUTROPHILS TOTAL 4.91 1.40 - 6.00 x10'3/uL 03/23/2020 6:44 AM CDT [facility] IMMATURE GRANS % 4.3(H) 0.0 - 0.5 % 03/23/2020 6:44 AM CDT [facility] ABS. LYMPHOCYTES 2.35 0.80 - 4.70 x10'3/uL 03/23/2020 6:44 AM T [facility] 03/23/2020 6:20 AM CDT us Pollo Hogue PODIATRIC TECHNICIAN LABORATORY Final Result [facility] [address] [place] [address], * (ABNORMAL) POCT glucose (03/22/2020 7:56 PM CDT) [facility] Signature GLUCOSE POC 175(H) 70 - 110 mg/dL 03/22/2020 9:10 PM CDT [facility] 03/22/2020 7:56 PM CDT Pollo Hogue APRN POCT ORDERABLES - DEVICE Final Result Performing Organization Address [facility] Co de Phone Number [facility] [address] [place] [address], [place] [phone] * CULTURE, BACTERIA, BLOOD (03/22/2020 11:57 AM CDT) SPEC DESCRIPTION BLOOD 03/22/2020 9:30 AM CDT [facility] SPECIAL REQUESTS NO SPECIAL REQUEST 03/22/2020 9:30 AM CDT [facility] CULTURE RESULT NO GROWTH 5 DAYS 03/27/2020 2:05 PM CDT [facility] BLOOD SPECIMEN OBTAINED FOR BLOOD CULTURE / Unknown 03/22/2020 11:57 AM CDT 03/22/2020 12:07 PM CDT Pollo Hogue APRN MICROBIOLOGY - GENERAL ORDERAB LES Final Result Performing Organization Address City/[facility]/ZIP Co de Phone Number [facility] [address] [place] [address], [place] [phone] [facility] [address] [place] [address], [place] [phone] * CULTURE, BACTERIA, BLOOD (03/22/2020 11:57 AM CDT) SPEC DESCRIPTION BLOOD 03/22/2020 9:30 AM CDT [facility] SPECIAL REQUESTS NO SPECIAL REQUEST 03/22/2020 9:30 AM CDT [facility] CULTURE RESULT NO GROWTH 5 DAYS 03/27/2020 2:05 PM CDT [facility] BLOOD SPECIMEN OBTAINED FOR BLOOD CULTURE / Unknown 03/22/2020 11:57 AM CDT 03/22/2020 12:07 PM CDT Pollo Farmer Kristenmichaelle PODIATRIC TECHNICIAN MICROBIOLOGY - GENERAL ORDERAB LES Final Result [facility] [address] [place] [address], [place] [phone] [facility] [address] [place] [address], [place] [phone] * Pathology (03/22/2020 10:20 AM CDT) Tissue specimen (specimen) COLON STRUCTURE / Unknown 03/22/2020 10:20 AM CDT Tissue specimen (specimen) COLON STRUCTURE / Unknown 03/22/2020 10:22 AM CDT Tissue specimen (specimen) SPECIMEN FROM RECTUM / Unknown 03/22/2020 10:24 AM CDT Narrative [facility] - 03/23/2020 5:19 PM CDT [facility] Date of Service: ??03/22/2020 Preoperative Diagnosis: ??Diarrhea [...] submitted entirely in block C. CPT Code: ??28220 x3 D: ??03/22/2020 02:17 PM #[id number] T: ??03/22/2020 04:47 PM /NTS A copy of this report has been sent to: [facility] [id number] PATHOLOGIC DIAGNOSIS: Right colon, colonoscopy with biopsies: [...] chronic ulcerative colitis. D: ??03/23/2020 04:21 PM #[id number] T: ??03/23/2020 05:09 PM /NTS Indigo Parsons MD PATHOLOGY/CYTOLOGY ORDERABLES Fi nal Result [facility] [address] [place] [address], * (ABNORMAL) BASIC METABOLIC PANEL (03/22/2020 6:55 AM CDT) GLUCOSE 88 70 - 99 MG/DL 03/22/2020 8:34 AM CDT [facility] BUN 5(L) 7 - 18 MG/DL 03/22/2020 8:34 AM CDT [facility] CREATININE S/P/B 0.82 0.55 - 1.02 MG/DL 03/22/2020 8:34 AM CDT [facility] SODIUM S/P/B 144 136 - 145 MMOL/L 03/22/2020 8:34 AM CDT [facility] POTASSIUM S/P/B 4.1 3.5 - 5.1 MMOL/L 03/22/2020 8:34 AM CDT [facility] CHLORIDE S/P/B 112(H) 100 - 108 MMOL/L 03/22/2020 8:34 AM CDT [facility] CO2 24.4 21 - 32 MMOL/L 03/22/2020 8:34 AM CDT [facility] CALCIUM S/P/B 7.0(L) 8.5 - 10.1 MG/DL 03/22/2020 8:34 AM CDT [facility] ANION GAP 7.6 5 - 15 MMOL/L 03/22/2020 8:34 AM CDT [facility] BUN CREATININE RATIO 6.1 6 - 03/22/2020 8:34 AM CDT [facility] EGFR NON-AFR. AMER. 70(L) >90 ML/MIN/1.7 3 M2 03/22/2020 8:34 AM CDT [facility] EGFR AFR. AMER. 81(L) >90 ML/MIN/1.7 3 M2 03/22/2020 8:34 AM T [facility] Comment: NOTE: eGFR is not calculated for patients <18 years of age. This is an estimated GFR (CKD EPI) and should not be used for calculating drug doses. 03/22/2020 6:55 AM CDT [facility] PODIATRIC TECHNICIAN LABORATORY Final Result [facility] [address] [place] [address], * (ABNORMAL) CBC W/DIFF AUTOMATED (03/22/2020 6:55 AM CDT) WBC 6.6 4.4 - 11.0 x10'3/uL 03/22/2020 7:14 AM CDT [facility] RBC 3.12(L) 4.50 - 5.10 x10'6/uL 03/22/2020 7:14 AM CDT [facility] HGB 7.8(L) 12.3 - 15.3 G/DL 03/22/2020 7:14 AM CDT [facility] HCT 25.2(L) 35.9 - 44.6 % 03/22/2020 7:14 AM CDT [facility] MCV 80.8 80.0 - 96.0 FL 03/22/2020 7:14 AM T [facility] MCH 25.0(L) 25.3 - 30.9 PG 03/22/2020 7:14 AM CDT [facility] MCHC 31.0 31.0 - 34.1 G/DL 03/22/2020 7:14 AM [facility] RDW 16.5(H) 12.4 - 15.1 % 03/22/2020 7:14 AM [facility] PLT 321 151 - 353 x10'3/uL 03/22/2020 7:14 AM [facility] MPV 8.0(L) 9.6 - 12.0 FL 03/22/2020 7:14 AM [facility] RBC MORPHOLOGY NORMAL 03/22/2020 7:14 AM [facility] PLT MORPH. NORMAL 03/22/2020 7:14 AM T [facility] WBC MORPHOLOGY NORMAL 03/22/2020 7:14 AM [facility] LYMPHOCYTES % 29.5 15.8 - 45.0 % 03/22/2020 7:14 AM [facility] NEUTROPHILS % 53.5 42.1 - 71.9 % 03/22/2020 7:14 AM T [facility] MONOCYTES % 11.0 5.7 - 12.5 % 03/22/2020 7:14 AM T [facility] EOSINOPHILS 1.7 0.0 - 5.6 % 03/22/2020 7:14 AM CDT [facility] BASOPHILS 0.5 0.0 - 1.3 % 03/22/2020 7:14 AM CDT [facility] ABS. NEUTROPHILS TOTAL 3.54 1.40 - 6.00 x10'3/uL 03/22/2020 7:14 AM CDT [facility] IMMATURE GRANS % 3.8(H) 0.0 - 0.5 % 03/22/2020 7:14 AM CDT [facility] ABS. LYMPHOCYTES 1.95 0.80 - 4.70 x10'3/uL 03/22/2020 7:14 AM CDT [facility] 03/22/2020 6:55 AM CDT [place] APRN LABORATORY Final Result [facility] [address] [place] [address], [place] [phone] * (ABNORMAL) IRON SAT PANEL (IRON,IBC,%SAT) (03/22/2020 6:55 AM CDT) IRON 33(L) 50 - 170 MCG/DL 03/22/2020 7:26 AM CDT [facility] IRON BINDING CAPACITY 133(L) 250 - 450 MCG/DL 03/22/2020 7:26 AM CDT [facility] IRON SATURATION 25 20 - 55 % 0 7:26 AM CDT [facility] 03/22/2020 6:55 AM CDT Durga Parekh MD LABORATORY Final Result Performing Organization Address City/[facility]/ZIP Co de Phone Number [facility] [address] [place] [address], [place] [phone] * (ABNORMAL) VITAMIN B12 / FOLATE (03/22/2020 6:55 AM CDT) VITAMIN B12 S/P/B 4,687(H) 193 - 986 PG/ML 03/22/2020 8:34 AM CDT [facility] FOLATE 6.0(L) 8.6 - 58.9 NG/ML 03/22/2020 8:34 AM CDT [facility] 03/22/2020 6:55 AM CDT us Durga Parekh MD LABORATORY Final Result Performing Organization Address [facility]/ZIP Co de Phone Number [facility] [address] [place] [address], [place] [phone] * POCT glucose (03/22/2020 5:59 AM CDT) GLUCOSE POC 100 70 - 110 mg/dL 03/22/2020 6:11 AM CDT [facility] 03/22/2020 5:59 AM CDT Pollo Hogue APRN POCT ORDERABLES - DEVICE Final Result Performing Organization Address [facility]/ZIP Co de Phone Number [facility] [address] [place] [address], [place] [phone] * (ABNORMAL) POCT glucose (03/21/2020 8:25 PM CDT) GLUCOSE POC 137(H) 70 - 110 mg/dL 03/21/2020 8:55 PM CDT [facility] 03/21/2020 8:25 PM CDT Pollo Hogue PODIATRIC TECHNICIAN POCT ORDERABLES - DEVICE Final Result Performing Organization Address City/[facility]/ZIP Co de Phone Number [facility] [address] [place] [address], [place] [phone] * POCT glucose (03/21/2020 4:13 PM CDT) GLUCOSE POC 100 70 - 110 mg/dL 03/21/2020 5:30 PM CDT [facility] 03/21/2020 4:13 PM CDT Pollo Farmer John PODIATRIC TECHNICIAN POCT ORDERABLES - DEVICE Final Result [facility] [address] [place] [address], [place] [phone] * (ABNORMAL) BASIC METABOLIC PANEL (03/21/2020 12:09 PM CDT) GLUCOSE 100(H) 70 - 99 MG/DL 03/21/2020 12:42 PM CDT [facility] BUN 9 7 - 18 MG/DL 03/21/2020 12:42 PM CDT [facility] CREATININE S/P/B 0.84 0.55 - 1.02 MG/DL 03/21/2020 12:42 PM CDT [facility] SODIUM S/P/B 141 136 - 145 MMOL/L 03/21/2020 12:42 PM CDT [facility] POTASSIUM S/P/B 4.5 3.5 - 5.1 MMOL/L 03/21/2020 12:42 PM CDT [facility] CHLORIDE S/P/B 111(H) 100 - 108 MMOL/L 03/21/2020 12:42 PM CDT [facility] CO2 19.7(L) 21 - 32 MMOL/L 03/21/2020 12:42 PM CDT [facility] CALCIUM S/P/B 7.2(L) 8.5 - 10.1 MG/DL 03/21/2020 12:42 PM CDT [facility] ANION GAP 10.3 5 - 15 MMOL/L 03/21/2020 12:42 PM CDT [facility] BUN CREATININE RATIO 10.7 6 - 26 03/21/2020 12:42 PM CDT [facility] EGFR NON-AFR. AMER. 68(L) >90 ML/MIN/1.7 3 M2 03/21/2020 12:42 PM CDT [facility] EGFR AFR. AMER. 78(L) >90 ML/MIN/1.7 3 M2 03/21/2020 12:42 PM CDT [facility] Comment: NOTE: eGFR is not calculated for patients <18 years of age. This is an estimated GFR (CKD EPI) and should not be used for calculating drug doses. 03/21/2020 12:0 9 PM CDT [facility] PODIATRIC TECHNICIAN LABORATORY Final Result [facility] [address] [place] [address], * (ABNORMAL) CBC W/DIFF AUTOMATED (03/21/2020 12:09 PM CDT) WBC 7.3 4.4 - 11.0 x10'3/uL 03/21/2020 12:22 PM CDT [facility] RBC 3.22(L) 4.50 - 5.10 x10'6/uL 03/21/2020 12:22 PM CDT [facility] HGB 8.2(L) 12.3 - 15.3 G/DL 03/21/2020 12:22 PM CDT [facility] HCT 26.6(L) 35.9 - 44.6 % 03/21/2020 12:22 PM CDT [facility] MCV 82.6 80.0 - 96.0 FL 03/21/2020 12:22 PM T [facility] MCH 25.5 25.3 - 30.9 PG 03/21/2020 12:22 PM [facility] MCHC 30.8(L) 31.0 - 34.1 G/DL 03/21/2020 12:22 PM T [facility] RDW 16.7(H) 12.4 - 15.1 % 03/21/2020 12:22 PM [facility] PLT 345 151 - 353 x10'3/uL 03/21/2020 12:22 PM [facility] MPV 8.6(L) 9.6 - 12.0 FL 03/21/2020 12:22 PM [facility] RBC MORPHOLOGY NORMAL 03/21/2020 12:22 PM [facility] PLT MORPH. NORMAL 03/21/2020 12:22 PM T [facility] WBC MORPHOLOGY NORMAL 03/21/2020 12:22 PM [facility] LYMPHOCYTES % 23.1 15.8 - 45.0 % 03/21/2020 12:22 PM [facility] NEUTROPHILS % 60.5 42.1 - 71.9 % 03/21/2020 12:22 PM T [facility] MONOCYTES % 11.5 5.7 - 12.5 % 03/21/2020 12:22 PM T [facility] EOSINOPHILS 1.5 0.0 - 5.6 % 03/21/2020 12:22 PM [facility] BASOPHILS 0.5 0.0 - 1.3 % 03/21/2020 12:22 PM T [facility] ABS. NEUTROPHILS TOTAL 4.40 1.40 - 6.00 x10'3/uL 03/21/2020 12:22 PM CDT [facility] IMMATURE GRANS % 2.9(H) 0.0 - 0.5 % 03/21/2020 12:22 PM CDT [facility] ABS. LYMPHOCYTES 1.68 0.80 - 4.70 x10'3/uL 03/21/2020 12:22 PM CDT [facility] 03/21/2020 12:0 9 PM CDT Pollo Hogue PODIATRIC TECHNICIAN LABORATORY Final Result [facility] [address] [place] [address], [place] [phone] * US RETROPERITONEAL COMP (03/21/2020 10:53 AM [...] COMPARISON: CT 03/19/2020 TECHNIQUE: Examination performed by apple peeler operator using grayscale with color flow and spectral Doppler. Selected images submitted for interpretation. Worksheet completed. Procedure Note Driss Garcia MD - 03/21/2020 IMAGING STUDIES:US RETROPERITONEAL COMP DATE: 03/21/2020 9:33 AM INDICATION: left renal lesion noted on CT COMPARISON: CT 03/19/2020 TECHNIQUE: Examination performed by apple peeler operator using grayscalewith color flow and spectral Doppler. [...] Driss Garcia, 03/21/2020 12:23 PM Cara Alvarado PODIATRIC TECHNICIAN ULTRASOUND Final Re sult * POCT glucose (03/21/2020 6:07 AM CDT) GLUCOSE POC 107 70 - 110 mg/dL 03/21/2020 6:12 AM CDT [facility] 03/21/2020 6:07 AM CDT Durga Parekh MD POCT ORDERABLES - DEVICE Final Result [facility] [address] [place] [address], [place] [phone] * O&P CONC&SMEAR TO REF LAB (03/20/2020 12:25 PM CDT) SPECIMEN SOURCE STOOL 0 12:54 PM CDT [facility] O & P EXAMINATION (STOOL) REPORT 03/29/2020 8:32 PM CDT [facility] Comment: Ova and Parasites, Concentrate and Permanent Smear Examination for Ova and Parasites SOURCE : STOOL Result/Comment: NO OVA AND PARASITES SEEN. Reference Range: ??No Ova and Parasites seen Routine Ova and Parasite Exam may not detect some parasites that occasionally cause diarrheal illness. Test code(s) 89048S[79864](Cryptosporidium Ag, DFA) and/or 83190I[33637] (Cyclospora and Isospora Exam) may be ordered to detect these parasites. One negative sample does not necessarily rule out the presence of a parasitic infection. Assay performed by wet mount after concentration. Parasite Exam, Trichrome Stain SOURCE : STOOL Result/Comment: NO OVA AND PARASITES SEEN. Routine Ova and Parasite Exam may not detect some parasites that occasionally cause diarrheal illness. Test code(s) 78422X[06769](Cryptosporidium Ag, DFA) and/or 11821C[96165] (Cyclospora and Isospora Exam) may be ordered to detect these parasites. One negative sample does not necessarily rule out the presence of a parasitic infection. For additional information, please refer to https://education.G-volution/faq/HZT163 (This link is being provided for informational/ educational purposes only.) Test Performed by [facility], [address] [place], [place] Gamal Gao M.D., Ph.D., Director of Laboratories , [place] [id number] STOOL SPECIMEN / Unknown 03/20/2020 12:25 PM CDT Durga Parekh MD MICROBIOLOGY - GENERAL ORDERAB LES Final Result [facility] [id number] [place] [address], [place] [phone] [facility] [address] [place] [address], [place] [phone] * CLOSTRIDIUM DIFFICILE (03/20/2020 11:25 AM CDT) C DIFFICILE TOXIN (STOOL) NEGATIVE NEGATIVE 03/20/2020 2:14 PM CDT [facility] STOOL SPECIMEN / Unknown 03/20/2020 11:25 AM CDT Durga Parekh MD BODY FLUIDS AND STOOLS ORDERAB LES Final Result [facility] [address] [place] [address], [place] [phone] * (ABNORMAL) LIPID PANEL (03/20/2020 5:30 AM CDT) Pathologist [facility] [place] CHOLESTEROL 51 <200.0 MG/DL 03/20/2020 6:40 AM CDT [facility] TRIGLYCERIDES 47 <150 MG/DL 03/20/2020 6:40 AM T [facility] HDL 36(L) >40.0 MG/DL 03/20/2020 6:40 AM T [facility] LDL (CALCULATED) 6 <100 MG/DL 03/20/20 20 6:40 AM T [facility] NON HDL CHOLESTEROL 15 <130 MG/DL 03/20 6:40 AM T [facility] CHOL/HDL RATIO 1.4 0.0 - 4.5 03/20/2020 6:40 AM T [facility] VLDL CALCULATION 9 5 - 55 MG/DL 03/20/2020 6:40 AM CDT [facility] LIPID INTERPRETATION 03/20/2020 6:40 AM T [facility] Comment: [facility] REPORT RECOMMENDATIONS: [...] us Madison Aaron MD LABORATORY Final Result [facility] () [facility] [address] [place] [phone], * (ABNORMAL) MAGNESIUM (03/20/2020 5:30 AM CDT) Pathologist [facility] [place] MAGNESIUM 1.6(L) 1.8 - 2.4 MG/DL 03/20/2020 6:38 AM CDT [facility] 03/20/2020 5:30 AM CDT Madison Aaron MD LABORATORY Final Result [facility] [address] [place] [address], * (ABNORMAL) BASIC METABOLIC PANEL (03/20/2020 5:30 AM CDT) Pathologist [facility] [place] GLUCOSE 74 70 - 99 MG/DL 03/20/2020 6:38 AM CDT [facility] BUN 24(H) 7 - 18 MG/DL 03/20/2020 6:38 AM CDT [facility] CREATININE S/P/B 1.59(H) 0.55 - 1.02 MG/DL 03/20/2020 6:38 AM CDT [facility] SODIUM S/P/B 140 136 - 145 MMOL/L 03/20/2020 6:38 AM CDT [facility] POTASSIUM S/P/B 5.0 3.5 - 5.1 MMOL/L 03/20/2020 6:38 AM CDT [facility] CHLORIDE S/P/B 110(H) 100 - 108 MMOL/L 03/20/2020 6:38 AM CDT [facility] CO2 20.2(L) 21 - 32 MMOL/L 03/20/2020 6:38 AM CDT [facility] CALCIUM S/P/B 7.4(L) 8.5 - 10.1 MG/DL 03/20/2020 6:38 AM CDT [facility] ANION GAP 9.8 5 - 15 MMOL/L 03/20/2020 6:38 AM CDT [facility] BUN CREATININE RATIO 15.1 6 - 26 03/20/2020 6:38 AM CDT [facility] EGFR NON-AFR. AMER. 31(L) >90 ML/MIN/1.7 3 M2 03/20/2020 6:38 AM CDT [facility] EGFR AFR. AMER. 36(L) >90 ML/MIN/1.7 3 M2 03/20/2020 6:38 AM T [facility] Comment: NOTE: eGFR is not calculated for patients <18 years of age. This is an estimated GFR (CKD EPI) and should not be used for calculating drug doses. 03/20/2020 5:30 AM CDT us Madison Aaron MD LABORATORY Final Result [facility] [address] [place] [address], * (ABNORMAL) CBC W/DIFF AUTOMATED (03/20/2020 5:30 AM CDT) WBC 11.2(H) 4.4 - 11.0 x10'3/uL 03/20/2020 6:30 AM CDT [facility] RBC 3.10(L) 4.50 - 5.10 x10'6/uL 03/20/2020 6:30 AM CDT [facility] HGB 7.8(L) 12.3 - 15.3 G/DL 03/20/2020 6:30 AM T [facility] HCT 25.6(L) 35.9 - 44.6 % 03/20/2020 6:30 AM T [facility] MCV 82.6 80.0 - 96.0 FL 03/20/2020 6:30 AM CDT [facility] MCH 25.2(L) 25.3 - 30.9 PG 03/20/2020 6:30 AM T [facility] MCHC 30.5(L) 31.0 - 34.1 G/DL 03/20/2020 6:30 AM T [facility] RDW 16.1(H) 12.4 - 15.1 % 03/20/2020 6:30 AM T [facility] PLT 336 151 - 353 x10'3/uL 03/20/2020 6:30 AM [facility] MPV 9.0(L) 9.6 - 12.0 FL 03/20/2020 6:30 AM [facility] RBC MORPHOLOGY NORMAL 03/20/2020 6:30 AM [facility] PLT MORPH. NORMAL 03/20/2020 6:30 AM [facility] WBC MORPHOLOGY NORMAL 03/20/2020 6:30 AM [facility] LYMPHOCYTES % 15.5(L) 15.8 - 45.0 % 03/20/2020 6:30 AM [facility] NEUTROPHILS % 70.7 42.1 - 71.9 % 03/20/2020 6:30 AM T [facility] MONOCYTES % 11.5 5.7 - 12.5 % 03/20/2020 6:30 AM [facility] EOSINOPHILS 0.8 0.0 - 5.6 % 03/20/2020 6:30 AM [facility] BASOPHILS 0.3 0.0 - 1.3 % 03/20/2020 6:30 AM [facility] ABS. NEUTROPHILS TOTAL 7.93(H) 1.40 - 6.00 x10'3/uL 03/20/2020 6:30 AM CDT [facility] IMMATURE GRANS % 1.2(H) 0.0 - 0.5 % 03/20/2020 6:30 AM CDT [facility] ABS. LYMPHOCYTES 1.74 0.80 - 4.70 x10'3/uL 03/20/2020 6:30 AM CDT [facility] 03/20/2020 5:30 AM CDT Madison Aaron MD LABORATORY Final Result Performing Organization Address City/[facility]/ZIP Co de Phone Number [facility] [address] [place] [address], [place] [phone] * CULTURE, BACTERIA, BLOOD (03/20/2020 5:21 AM CDT) SPEC DESCRIPTION BLOOD 03/19/2020 11:05 PM CDT [facility] SPECIAL REQUESTS NO SPECIAL REQUEST 03/19/2020 11:05 PM CDT [facility] CULTURE RESULT NO GROWTH 5 DAYS 2020 3:42 PM CDT [facility] BLOOD SPECIMEN OBTAINED FOR BLOOD CULTURE / Unknown 03/20/2020 5:21 AM CDT 03/20/2020 5:22 AM CDT Mahesh Nelson MD MICROBIOLOGY - GENERAL MIA LEARY Final Result [facility] [address] [place] [address], [place] [phone] [facility] [address] [place] [address], [place] [phone] * (ABNORMAL) CULTURE, BACTERIA, BLOOD (03/20/2020 5:21 AM CDT) SPEC DESCRIPTION BLOOD 03/19/2020 11:05 PM CDT [facility] SPECIAL REQUESTS NO SPECIAL REQUEST 03/19/2020 11:05 PM CDT [facility] GRAM STAIN RESULT MODERATE GRAM POSITIVE COCCI RESEMBLING STAPHYLOCOCCUS SPECIES 03/22/2020 2:54 AM CDT [facility] CULTURE RESULT GROWTH OF STAPH. SPECIES NOT STAPH. AUREUS SUSCEPTIBILTY NOT ROUTINELY PERFORMED. SAVING ISOLATE FOR 5 DAYS. CONTACT MICROBIOLOGY DEPARTMENT IF FURTHER WORKUP IS INDICATED. (AA) 03/23/2020 9:47 AM CDT [facility] CULTURE RESULT CALLED TO AND READ BACK BY CHIKA BORREGO ON 03/22/20 AT 0250 BY [facility] 03/23/2020 9:47 AM CDT [facility] BLOOD SPECIMEN OBTAINED FOR BLOOD CULTURE / Unknown 03/20/2020 5:21 AM CDT 03/20/2020 5:22 AM CDT Mahesh Nelson MD MICROBIOLOGY - GENERAL MIA LEARY Final Result [facility] [address] [place] [address], [facility] [address] [place] [address], * ECG 12 lead (03/19/2020 11:20 PM CDT) 03/19/2020 11:2 0 PM CDT Narrative [facility] RAD - 03/20/2020 7:18 AM CDT ?[facility] ? Test Date: ?2020-03-19 Pat Name: ? RADHA ALLEN ? Department: ? Room: ? 120 Gender: ? Female ? Car Loader: ?? : ?[id number] ? Requested By: MAHESH BRAHMAVAR Order Number: [id number] ? Reading MD: ?? Keven Gunter ? Measurements Intervals ?Adams ? Rate: ? 78 ? P: ?53 VT: ? 137 ?QRS: ?22 QRSD: ? 87 ? T: ?12 QT: ? 355 ? QTc: ?405 ? Interpretive Statements SINUS RHYTHM LOW QRS VOLTAGE IN PRECORDIAL LEADS ?? No previous ECG available for comparison Procedure Note Keven Gunter MD - 03/20/[address] [facility] Test Date: 2020-03-19 Pat Name: RADHA ALLEN Department: Room: 120 Gender: Female Car Loader: : [id number] Requested By: MAHESH NELSON Order Number: [id number] Reading MD: Keven Gunter Measurements Intervals Adams Rate: 78 P: 53 VT: 137 QRS: 22 QRSD: 87 T: 12 QT: 355 QTc: 405 Interpretive Statements SINUS RHYTHM LOW QRS VOLTAGE IN PRECORDIAL LEADS No previous ECG available for comparison us Mahesh Nelson MD ECG ORDERABLES Final Resul t [facility] RAD * CT ABD+PEL WO [...] - 2.0 MMOL/L 03/19/2020 9:24 PM CDT [facility] 03/19/2020 8:45 PM CDT us Mahesh Nelson MD LABORATORY Final Resul t Performing Organization Address [facility] Co de Phone Number [facility] [address] [place] [address], [place] [phone] * LIPASE (03/19/2020 8:45 PM CDT) LIPASE 74 73 - 393 UNITS/L 03/19/2020 9:19 PM CDT [facility] 03/19/2020 8:45 PM CDT us Mahesh Nelson MD LABORATORY Final Resul t Performing Organization Address [facility]/ZIP Co de Phone Number [facility] [address] [place] [address], [place] [phone] * (ABNORMAL) COMPREHENSIVE METABOLIC PANEL (03/19/2020 8:45 PM CDT) GLUCOSE 107(H) 70 - 99 MG/DL 03/19/2020 9:19 PM CDT [facility] BUN 28(H) 7 - 18 MG/DL 03/19/2020 9:19 PM CDT [facility] CREATININE S/P/B 2.27(H) 0.55 - 1.02 MG/DL 03/19/2020 9:19 PM [facility] SODIUM S/P/B 135(L) 136 - 145 MMOL/L 03/19/2020 9:19 PM [facility] POTASSIUM S/P/B 5.3(H) 3.5 - 5.1 MMOL/L 03/19/2020 9:19 PM [facility] CHLORIDE S/P/B 102 100 - 108 MMOL/L 03/19/2020 9:19 PM [facility] CO2 20.2(L) 21 - 32 MMOL/L 03/19/2020 9:19 PM [facility] CALCIUM S/P/B 8.4(L) 8.5 - 10.1 MG/DL 03/19/2020 9:19 PM [facility] BILIRUBIN TOTAL S/P/B 0.4 0.2 - 1.2 MG/DL 03/19/2020 9:19 PM [facility] TOTAL PROTEIN S/P/B 7.4 6.4 - 8.2 G/DL 03/19/2020 9:19 PM [facility] ALBUMIN S/P/B 2.5(L) 3.4 - 5.0 G/DL 03/19/2020 9:19 PM [facility] AST 21 15 - 37 U/L 03/19/2020 9:19 PM [facility] ALT 16 14 - 55 U/L 03/19/2020 9:19 PM [facility] ALKALINE PHOSPHATASE S/P/B 103 50 - 136 U/L 03/19/2020 9:19 PM [facility] ANION GAP 12.8 5 - 15 MMOL/L 03/19/2020 9:19 PM [facility] BUN CREATININE RATIO 12.3 6 - 26 03/19/2020 9:19 PM CDT [facility] A/G RATIO 0.5(L) 1.0 - 2.0 RATIO 03/19/2020 9:19 PM CDT [facility] EGFR NON-AFR. AMER. 20(L) >90 ML/MIN/1.7 3 M2 03/19/2020 9:19 PM CDT [facility] EGFR AFR. AMER. 24(L) >90 ML/MIN/1.7 3 M2 03/19/2020 9:19 PM CDT [facility] Comment: NOTE: eGFR is not calculated for patients <18 years of age. This is an estimated GFR (CKD EPI) and should not be used for calculating drug doses. 03/19/2020 8:45 PM CDT us Mahesh Nelson MD LABORATORY Final Resul t [facility] [address] [place] [address], [place] [phone] * (ABNORMAL) CBC W/DIFF AUTOMATED (03/19/2020 8:45 PM CDT) WBC 18.1(H) 4.4 - 11.0 x10'3/uL 03/19/2020 9:03 PM CDT [facility] RBC 3.78(L) 4.50 - 5.10 x10'6/uL 03/19/2020 9:03 PM CDT [facility] HGB 9.5(L) 12.3 - 15.3 G/DL 03/19/2020 9:03 PM T [facility] HCT 31.0(L) 35.9 - 44.6 % 03/19/2020 9:03 PM CDT [facility] MCV 82.0 80.0 - 96.0 FL 03/19/2020 9:03 PM CDT [facility] MCH 25.1(L) 25.3 - 30.9 PG 03/19/2020 9:03 PM T [facility] MCHC 30.6(L) 31.0 - 34.1 G/DL 03/19/2020 9:03 PM T [facility] RDW 16.0(H) 12.4 - 15.1 % 03/19/2020 9:03 PM T [facility] PLT 476(H) 151 - 353 x10'3/uL 03/19/2020 9:03 PM T [facility] MPV 8.7(L) 9.6 - 12.0 FL 03/19/2020 9:03 PM T [facility] SEG NEUTROPHILS 76(H) 42 - 72 % 0 9:20 PM T [facility] BANDS 2 % 03/19/2020 9:20 PM CDT [facility] LYMPHOCYTES 13(L) 15.8 - 45.0 % 03/19/2020 9:20 PM T [facility] MONOCYTES 9 5.7 - 12.5 % 03/19/2020 9:20 PM T [facility] ABS. NEUTROPHILS TOTAL 14.12(H) 1.40 - 6.00 x10'3/uL 03/19/2020 9:20 PM T [facility] ABS. LYMPHOCYTES 2.35 0.80 - 4.70 x10'3/uL 03/19/2020 9:20 PM T [facility] PLT MORPH. NORMAL 03/19/2020 9:20 PM CDT [facility] RBC MORPHOLOGY NORMAL 03/19/2020 9:20 PM CDT [facility] WBC MORPHOLOGY NORMAL 03/19/2020 9:20 PM CDT [facility] 03/19/2020 8:45 PM CDT us Mahesh Nelson MD LABORATORY Final Resul t [facility] [address] [place] [address], [place] [phone] documented in this encounter Visit Diagnoses Not [...] (Infusion Stop Time - Provider: Chika Hatfield, LEMO) vitamin B-12 (CYANOCOBALAMIN) tablet 1,000 mcg 1,000 [...] entered.) documented in this encounter Care Teams Vehicle Mechanic Relationship Specialty Start Date End Date Jared Leyva MD PCP - General 08/28/11 07/16/22 documented as of this encounter
--- OUTSIDE RECORDS SUMMARY | 2024-07-15 19:47 | XMS_ITS | Encounter Summary ---
Author Organization [facility] Address [facility] [facility] [place] [address] [place] [address] Care Team Providers Care Time Stamp Assembler Name Role Phone Jared Abrams MD Primary Care Provider [phone] Encounter Details Date Type Department Care Team (Latest Contact Info) Description 07/09/[address] [facility] Social History Tobacco Use Types [...] Contact Info) Description 08/03/2024 2:[address] CAR MECHANIC Appointment [facility] [address] [place] [address] Josué Cook MD [address] [address] documented as of this encounter Visit Diagnoses Not on filedocumented in this encounter Care Teams Time Stamp Assembler Relationship Specialty Start Date End Date Jared Abrams MD PCP - General 08/28/11 07/16/22 documented as of this encounter
--- OUTSIDE RECORDS SUMMARY | 2024-07-15 19:47 | XMS_ITS | Encounter Summary ---
Author Organization [facility] Address [address] [facility] [place] [address] [place] [address] Care Team Providers Care Body Design Checker Name Role Phone Jared Abrams MD Primary Care Provider [phone] Encounter Details Date Type Department Care Team (Late st Contact Info) Description 07/25/2016 Abstract [facility] [address] [place] [address] Jared Abrams MD [address] [place] [address] Social History Tobacco Use Types Packs/Day Years [...] st Contact Info) Description 08/03/2024 2:00 PM HOUSE SITTER Appointment [facility] [address] [place] [address] Josué Cook MD [address] [place] [id number] documented as of this encounter Visit Diagnoses Diagnosis Encounter for screening mammogram for malignant neoplasm of breast Other screening mammogram documented in this encounter Care Teams Body Design Checker Relationship Specialty Start Date End Date Jared Abrams MD PCP - General 08/28/11 07/16/22 documented as of this encounter
--- OUTSIDE RECORDS SUMMARY | 2024-07-15 19:47 | XMS_ITS | Encounter Summary ---
Author Organization [facility] Address [address] [facility] [address] [place] [address] Care Team Providers Care Patient Care Technician Instructor Name Role Phone Jared Abrams MD Primary Care Provider [phone] Encounter Details Date Type Department Care Team (Late st Contact Info) Description 07/18/2010 Abstract [facility] [address] [place] [address] Esperanza Crane PA 1212 [place] [address] Social History Tobacco Use Types Packs/Day Years [...] Contact Info) Description 08/03/2024 2:00 PM DIRECTOR PHARMACOVIGILANCE Appointment [facility] [address] [place] [address] Josué Cook MD [address] [place] [address] documented as of this encounter Visit Diagnoses Diagnosis Senile osteoporosis documented in this encounter Care Teams Patient Care Technician Instructor Relationship Specialty Start Date End Date Jared Abrams MD PCP - General 08/28/11 07/16/22 documented as of this encounter
--- OUTSIDE RECORDS SUMMARY | 2024-07-15 19:47 | XMS_ITS | Encounter Summary ---
Author Organization [facility] Address [address] [facility] [place] [address] [place] [address] Care Team Providers Care Licensed Therapist Name Role Phone Jared Abrams MD Primary Care Provider [phone] Encounter Details Date Type Department Care Team (Late Contact Info) Description 12/30/2008 Abstract [facility] [address]15 [place] [address] Jared Abrams MD [facility] [place] [address] Social History Tobacco Use Types Packs/Day Years [...] (Late Contact Info) Description 08/03/2024 2:00 PM SPEECH SCIENTIST Appointment [facility] [address] [place], [place] [id number] Jos[place]é [place] [address] [place] [address] documented as of this encounter Visit Diagnoses Not on filedocumented in this encounter Care Teams Licensed Therapist Relationship Specialty Start Date End Date Jared Abrams MD PCP - General 08/28/11 07/16/22 documented as of this encounter
--- OUTSIDE RECORDS SUMMARY | 2024-07-15 19:47 | XMS_ITS | Encounter Summary ---
Author Organization [facility] Address [address] [facility] [place] [place] [address] [place] [address] Care Team Providers Care Automatic Blocker Name Role Phone Jared Abrams MD Primary Care Provider [phone] Encounter Details Date Type Department Care Team (Late Contact Info) Description 11/23/2009 Abstract [facility] [address]15 [place] [address] Scar Diaz MD [address] [place] [address] Social History Tobacco Use Types Packs/Day Years [...] (Late Contact Info) Description 08/03/2024 2:00 PM MINE DEVELOPMENT ENGINEER Appointment [facility] [address] [place], [place] [address] Josué Cook MD [address] [facility] 8 [place] [address] documented as of this encounter Visit Diagnoses Not on filedocumented in this encounter Care Teams Automatic Blocker Relationship Specialty Start Date End Date Jared Abrams MD PCP - General 08/28/11 07/16/22 documented as of this encounter
--- OUTSIDE RECORDS SUMMARY | 2024-07-15 19:47 | XMS_ITS | Encounter Summary ---
Author Organization [facility] Address [address] [facility] [place] [address] [place] [address] Care Team Providers Care Avionic Technician Name Role Phone Jared Abrams MD Primary Care Provider [phone] Encounter Details Date Type Department Care Team (Late st Contact Info) Description 01/19/[address] [facility] [address] [place] [address] Jared Abrams MD [address] [place], [place] [id number] Social History Tobacco Use Types Packs/Day Years [...] st Contact Info) Description 08/03/2024 2:00 PM ACURA SALES CONSULTANT Appointment [facility] [address] [place] [address] Josué Cook MD [facility] [address] [address] documented as of this encounter Visit Diagnoses Diagnosis Pain in joint, lower leg documented in this encounter Care Teams Avionic Technician Relationship Specialty Start Date End Date Jared Abrams MD PCP - General 08/28/11 07/16/22 documented as of this encounter
--- OUTSIDE RECORDS SUMMARY | 2024-07-15 19:47 | XMS_ITS | Encounter Summary ---
Author Organization [facility] Address [address] [facility] [place] [address] [place] [address] Care Team Providers Care Teacher Emotionally Impaired Name Role Phone Jared Abrams MD Primary Care Provider Encounter Details Date Type Department Care Team (Late Contact Info) Description 08/28/2011 Abstract [facility] Emergency Room [address] [place] [address] Andrez Cheema MD [address] [address] Social History Tobacco Use Types [...] st Contact Info) Description 08/03/2024 2:00 PM TRAFFIC INSPECTOR Appointment [facility] [address] [place] [address] Josué Cook MD [address] [place] [address] documented as of this encounter Visit Diagnoses Diagnosis Dizziness and giddiness documented in this encounter Care Teams Teacher Emotionally Impaired Relationship Specialty Start Date End Date Jared Abrams MD PCP - General 08/28/11 07/16/22 documented as of this encounter
--- OUTSIDE RECORDS SUMMARY | 2024-07-15 19:47 | XMS_ITS | Encounter Summary ---
Author Organization [facility] Address [address] [facility] [place] [address] [place] [address] Care Team Providers Care Nuclear Weapons Specialist Name Role Phone Jared Abrams MD Primary Care Provider [phone] Encounter Details Date Type Department Care Team (Late Contact Info) Description 09/23/2008 Abstract [facility] [address] [place] [address] Vladimir Parsons MD [address] [address] Social History Tobacco Use Types Packs/Day Years [...] (Late Contact Info) Description 08/03/2024 2:00 PM RAG SORTER AND CUTTER Appointment [facility] [address] [place] [address] Josué Cook MD [facility] [address] [address] documented as of this encounter Visit Diagnoses Not on filedocumented in this encounter Care Teams Nuclear Weapons Specialist Relationship Specialty Start Date End Date Jared Abrams MD PCP - General 08/28/11 07/16/22 documented as of this encounter
--- OUTSIDE RECORDS SUMMARY | 2024-07-15 19:47 | XMS_ITS | Encounter Summary ---
Author Organization [facility] Address [address] [facility] [place] [address] [place] [address] Care Team Providers Care Fiscal Officer Name Role Phone Jared Abrams MD Primary Care Provider [phone] Encounter Details Date Type Department Care Team (Late st Contact Info) Description 09/23/2011 Abstract [facility] [address] [place] [address] Jared Abrams MD 1212 [place] [address] Social History Tobacco Use Types Packs/Day Years [...] st Contact Info) Description 08/03/2024 2:00 PM BOOK ILLUSTRATOR Appointment [facility] [address] [place] [address] Josué Cook MD [address] [place] [address] documented as of this encounter Visit Diagnoses Diagnosis Essential hypertension Unspecified essential hypertension documented in this encounter Care Teams Fiscal Officer Relationship Specialty Start Date End Date Jared Abrams MD PCP - General 08/28/11 07/16/22 documented as of this encounter
--- OUTSIDE RECORDS SUMMARY | 2024-07-15 19:47 | XMS_ITS | Encounter Summary ---
Author Organization [facility] Address [address] [place] [address] [place] [address] Care Team Providers Care Gastroenterology Manager Name Role Phone Jared Abrams MD Primary Care Provider [phone] Encounter Details Date Type Department Care Team (Late Contact Info) Description 08/14/2006 Abstract [facility] CONVERSION [address] [place] [address] David Foy, MAINTENANCE OPERATOR [address] [place], [place] [phone] Social History Tobacco Use Types Packs/Day Years [...] (Late Contact Info) Description 08/03/2024 2:00 PM CITY DETECTIVE Appointment [facility] [address] [place] [address] Josué Cook MD [address] [address] documented as of this encounter Visit Diagnoses Not on filedocumented in this encounter Care Teams Gastroenterology Manager Relationship Specialty Start Date End Date Jared Abrams MD PCP - General 08/28/11 07/16/22 documented as of this encounter
--- OUTSIDE RECORDS SUMMARY | 2024-07-15 19:47 | XMS_ITS | Encounter Summary ---
Author Organization [facility] Address [address] [facility] [place] [address] [place] [address] Care Team Providers Care Chaplain Name Role Phone Jared Abrams MD Primary Care Provider [phone] Encounter Details Date Type Department Care Team (Latest Contact Info) Description 12/23/2019 2:45 PM CDT - 12/23/2019 11:59 PM CDT Hospital Encounter [facility] [address] [place] [address] Jared Abrams MD [address] [place], [place] [address] Discharge Disposition: Home or Self Care (Routine [...] Contact Info) Description 08/03/2024 2:00 PM DIRECTOR CUSTOM Appointment [facility] [address] [place] [address] Josué Cook MD [address] [address] documented as of this encounter Procedures Procedure [...] ASSAY NEGATIVE NEGATIVE 12/23/2019 4:15 PM CDT [facility] STOOL SPECIMEN / Unknown 12/23/2019 2:50 PM CDT Jared Abrams MD BODY FLUIDS AND STOOLS ORDERAB LES Final Result [facility] [address] [place] [address], [place] [phone] * O&P CONC&SMEAR TO REF LAB (12/23/2019 2:50 PM CDT) Pathologist [facility] SPECIMEN SOURCE STOOL 0 2:47 PM CDT [facility] O & P EXAMINATION (STOOL) REPORT 12/28/2019 4:[address] [facility] [address] Comment: Ova and Parasites, Concentrate and Permanent Smear SOURCE : STOOL Test not performed. Transport device is not acceptable for test requested. Test Performed by [employer], [employer] [facility], [address] [place] [address] Gamal Gao M.D., Ph.D., Director of Laboratories , CLIA [id number] STOOL SPECIMEN / Unknown 12/23/2019 2:50 PM CDT Jared Abrams MD MICROBIOLOGY - GENERAL ORDERAB LES Final Result [facility] [address] [place] [address], [place] [phone] [facility] [address] [place] [address], [place] [phone] * Stool Culture (12/23/2019 2:49 PM CDT) SPEC DESCRIPTION STOOL 12/23/2019 2:47 PM CDT [facility] SPECIAL REQUESTS NO SPECIAL REQUEST 12/23/2019 2:47 PM CDT [facility] CULTURE RESULT NEGATIVE FOR SHIGA TOXIN 1 AND 2 12/29/2019 10:46 AM CDT [facility] CULTURE RESULT NO ENTERIC PATHOGENS ISOLATED 12/29/2019 10:46 AM CDT [facility] CULTURE RESULT NOTE: STOOL CULTURES ARE ROUTINELY SCREENED FOR SALMONELLA,SH IGELLA,YERSIN IA,AEROMONAS, PLESIOMONAS,C AMPYLOBA CTER,E.COLI 0157,OVERGROW THS OF S.AUREUS,YEAS T AND P. AERUGINOSA 12/29/2019 10:46 AM CDT [facility] Stool specimen (specimen) STOOL SPECIMEN / Unknown 12/23/2019 2:49 PM CDT 12/23/2019 2:50 PM CDT Jared Abrams MD MICROBIOLOGY - GENERAL ORDERAB LES Final Result [facility] [address] [place] [address], [place] [phone] [facility] [address] [place] [address], [place] [phone] documented in this encounter Visit Diagnoses Diagnosis Diarrhea of presumed infectious origin documented in this encounter Care Teams Chaplain Relationship Specialty Start Date End Date Jared Abrams MD PCP - General 08/28/11 07/16/22 documented as of this encounter
--- OUTSIDE RECORDS SUMMARY | 2024-07-15 19:47 | XMS_ITS | Encounter Summary ---
Author Organization [facility] Address [address] [facility] [place] [address] [place] [address] Care Team Providers Care Director Of Accounts Payable Name Role Phone Jared Abrams MD Primary Care Provider [phone] Encounter Details Date Type Department Care Team (Late Contact Info) Description 12/01/2009 Abstract [facility] CONVERSION [address] [place] [address] David Foy, POCKETED SPRING ASSEMBLER [address] [place], [place] [address] Social History Tobacco Use Types Packs/Day Years [...] (Late Contact Info) Description 08/03/2024 2:00 PM COMPOUNDER FLAVORINGS Appointment [facility] [address] [facility] [place] [address] Josué Cook MD [address] [address] documented as of this encounter Visit Diagnoses Not on filedocumented in this encounter Care Teams Director Of Accounts Payable Relationship Specialty Start Date End Date Jared Abrams MD PCP - General 08/28/11 07/16/22 documented as of this encounter
--- OUTSIDE RECORDS SUMMARY | 2024-07-15 19:47 | XMS_ITS | Encounter Summary ---
Author Organization [facility] Address [address] [facility] [place] [place] [address] [place] [address] Care Team Providers Care Opening Machine Cleaner Name Role Phone Jared Abrams MD Primary Care Provider [phone] Encounter Details Date Type Department Care Team (Late Contact Info) Description 12/23/2019 Orders Only [facility] [address] [place] [address] Jared Abrams MD [address] [place] [address] Social History Tobacco Use Types Packs/Day Years [...] (Late Contact Info) Description 08/03/2024 2:00 PM PRIMER ASSEMBLER Appointment [facility] [address] [place] [address] Josué Cook MD [address] [facility] 8 [place] [address] documented as of this encounter Results * O&P CONC&SMEAR TO REF LAB (12/23/2019 2:50 PM CDT) SPECIMEN SOURCE STOOL 0 2:[address] [facility] O & P EXAMINATION (STOOL) REPORT 12/28/2019 4:36 PM CDT [facility] Comment: Ova and Parasites, Concentrate and Permanent Smear SOURCE : STOOL Test not performed. Transport device is not acceptable for test requested. Test Performed by [employer], [employer] [facility], [address] [place] [address] Gamal Gao M.D., Ph.D., Director of Laboratories , [facility] [id number] STOOL SPECIMEN / Unknown 12/23/2019 2:50 PM CDT Jared Abrams MD MICROBIOLOGY - GENERAL ORDERAB LES Final Result [facility] [place] [address] , [place] [phone] [facility] [address] [place] [address], [place] [phone] * CLOSTRIDIUM DIFFICILE (12/23/2019 2:50 PM CDT) Pathologist [facility] MOLECULAR ASSAY NEGATIVE NEGATIVE 12/23/2019 4:[address] [facility] STOOL SPECIMEN / Unknown 12/23/2019 2:50 PM CDT Jared Abrams MD BODY FLUIDS AND STOOLS ORDERAB LES Final Result [facility] [address] [place] [address], [place] [phone] * Stool Culture (12/23/2019 2:49 PM CDT) SPEC DESCRIPTION STOOL 12/23/2019 2:47 PM CDT [facility] SPECIAL REQUESTS NO SPECIAL REQUEST 12/23/2019 2:[address] [facility] CULTURE RESULT NEGATIVE FOR SHIGA TOXIN 1 AND 2 12/29/2019 10:46 AM CDT [facility] CULTURE RESULT NO ENTERIC PATHOGENS ISOLATED 12/29/2019 10:46 AM CDT [facility] CULTURE RESULT NOTE: STOOL CULTURES ARE ROUTINELY SCREENED FOR SALMONELLA,SH IGELLA,YERSIN IA,AEROMONAS, PLESIOMONAS,C AMPYLOBA CTER,E.COLI 0157,OVERGROW THS OF S.AUREUS,YEAS T AND P. AERUGINOSA 12/29/2019 10:46 AM CDT [facility] Stool specimen (specimen) STOOL SPECIMEN / Unknown 12/23/2019 2:49 PM CDT 12/23/2019 2:50 PM CDT us Jared Abrams MD MICROBIOLOGY - GENERAL ORDERAB LES Final Result Performing Organization Address [facility]/State/[facility] Co de Phone Number [facility] 3 [place] [address], [place] [phone] [facility] [address] [place] [address], [place] [phone] documented in this encounter Visit Diagnoses Diagnosis Diarrhea of presumed infectious origin- Primary documented in this encounter Care Teams Opening Machine Cleaner Relationship Specialty Start Date End Date Jared Abrams MD PCP - General 08/28/11 07/16/22 documented as of this encounter
--- OUTSIDE RECORDS SUMMARY | 2024-07-15 19:47 | XMS_ITS | Encounter Summary ---
Author Organization [facility] Address [address] [facility] [place] [address] [place] [address] Care Team Providers Care Mathematician Research Name Role Phone Jared Abrams MD Primary Care Provider [phone] Encounter Details Date Type Department Care Team (Late st Contact Info) Description 01/06/2012 Abstract [facility] [address] [place] [address] Jared Abrams MD 1212 [place] [address] Social History Tobacco Use Types Packs/Day Years [...] st Contact Info) Description 08/03/2024 2:00 PM ROBOT DESIGNER Appointment [facility] Services [address] [place] [address] Josué Cook MD [address] [place] [address] documented as of this encounter Visit Diagnoses Diagnosis Anemia Anemia, unspecified documented in this encounter Care Teams Mathematician Research Relationship Specialty Start Date End Date Jared Abrams MD PCP - General 08/28/11 07/16/22 documented as of this encounter
--- OUTSIDE RECORDS SUMMARY | 2024-07-15 19:47 | XMS_ITS | Encounter Summary ---
Author Organization [facility] Address [address] [facility] [address] [place] [address] Care Team Providers Care Control Integration Engineer Name Role Phone Jared Abrams MD Primary Care Provider [phone] Encounter Details Date Type Department Care Team (Latest Contact Info) Description 10/04/2013 Abstract [facility] [place] [address] [address] [address] Social History Tobacco Use Types Packs/Day Years [...] Contact Info) Description 08/03/2024 2:00 PM COMMERCIAL RETOUCHER Appointment [facility] [address] [place] [address] Josué Cook MD [address] [address] documented as of this encounter Visit Diagnoses Not on filedocumented in this encounter Care Teams Control Integration Engineer Relationship Specialty Start Date End Date Jared Abrams MD PCP - General 08/28/11 07/16/22 documented as of this encounter
--- OUTSIDE RECORDS SUMMARY | 2024-07-15 19:47 | XMS_ITS | Encounter Summary ---
Author Organization [facility] Address [address] [facility] [place] [address] [place] [address] Care Team Providers Care Maths Tutor Name Role Phone Jared Abrams MD Primary Care Provider [phone] Encounter Details Date Type Department Care Team (Late st Contact Info) Description 07/06/2012 Abstract [facility] [address] [place] [address] Jared Abrams MD [address] [place] [address] Social History Tobacco Use Types Packs/Day Years [...] st Contact Info) Description 08/03/2024 2:00 PM PAYROLL SPECIALIST Appointment [facility] [address] [place] [address] Josué Cook MD [address] [place] [address] documented as of this encounter Visit Diagnoses Diagnosis Other seborrheic keratosis documented in this encounter Care Teams Maths Tutor Relationship Specialty Start Date End Date Jared Abrams MD PCP - General 08/28/11 07/16/22 documented as of this encounter
--- OUTSIDE RECORDS SUMMARY | 2024-07-15 19:47 | XMS_ITS | Encounter Summary ---
Author Organization [facility] Address [address] [facility] [place] [address] [place] [address] Care Team Providers Care Dispatcher Relay Name Role Phone Jared Abrams MD Primary Care Provider [phone] Encounter Details Date Type Department Care Team (Late st Contact Info) Description 10/01/2012 Abstract [facility] [address] [place] [address] Jared Abrams MD [address]12 [place] [address] Social History Tobacco Use Types Packs/Day Years [...] Contact Info) Description 08/03/2024 2:00 PM GAS DISPATCHER Appointment [facility] [address] [place] [address] Josué Cook MD [address] [place] [address] documented as of this encounter Visit Diagnoses Diagnosis Essential hypertension Unspecified essential hypertension documented in this encounter Care Teams Dispatcher Relay Relationship Specialty Start Date End Date Jared Abrams MD PCP - General 08/28/11 07/16/22 documented as of this encounter
--- OUTSIDE RECORDS SUMMARY | 2024-07-15 19:47 | XMS_ITS | Encounter Summary ---
Author Organization [facility] Address [address] [facility] [place] [address] [place] [address] Care Team Providers Care Spring Forger Name Role Phone Jared Abrams MD Primary Care Provider [phone] Encounter Details Date Type Department Care Team [...] st Contact Info) Description 08/03/2024 2:00 PM RADIO ASSEMBLER Appointment [facility] [address] [place] [address] Josué Cook MD [address] [address] documented as of this encounter Visit Diagnoses Not on filedocumented in this encounter Care Teams Spring Forger Relationship Specialty Start Date End Date Jared Abrams MD PCP - General 08/28/11 07/16/22 documented as of this encounter
--- OUTSIDE RECORDS SUMMARY | 2024-07-15 19:47 | XMS_ITS | Encounter Summary ---
Author Organization [facility] Address [address] [facility] [place] [address] [place] [address] Care Team Providers Care Tire Setter Name Role Phone Jared Abrams MD Primary Care Provider [phone] Encounter Details Date Type Department Care Team (Late st Contact Info) Description 07/26/2010 Abstract [facility] [address]15 [place] [address] Scar Diaz MD [address] [place] [address] Social History Tobacco Use Types Packs/Day Years [...] st Contact Info) Description 08/03/2024 2:00 PM BILLET SAWYER Appointment [facility] Day Services [address] [place] [address] Josué Cook MD [address] [place] [address] 8 [place] [address] documented as of this encounter Visit Diagnoses Diagnosis History of hip joint replacement by other means documented in this encounter Care Teams Tire Setter Relationship Specialty Start Date End Date Jared Abrams MD PCP - General 08/28/11 07/16/22 documented as of this encounter
--- OUTSIDE RECORDS SUMMARY | 2024-07-15 19:47 | XMS_ITS | Encounter Summary ---
Author Organization [facility] Address [address] [facility] [place] [address] [place] [address] Care Team Providers Care Chemists Name Role Phone Jared Abrams MD Primary Care Provider [phone] Encounter Details Date Type Department Care Team (Late st Contact Info) Description 01/10/2011 Abstract [facility] [address] [place] [address] David Foy, PIPER HELPER [address] [place], [place] [address] Social History Tobacco Use Types Packs/Day Years [...] st Contact Info) Description 08/03/2024 2:00 PM FILM SORTER Appointment [facility] Day Services [address] [place] [address] Josué Cook MD [address] [address] documented as of this encounter Visit Diagnoses Diagnosis Essential hypertension Unspecified essential hypertension documented in this encounter Care Teams Chemists Relationship Specialty Start Date End Date Jared Abrams MD PCP - General 08/28/11 07/16/22 documented as of this encounter
--- OUTSIDE RECORDS SUMMARY | 2024-07-15 19:47 | XMS_ITS | Encounter Summary ---
Author Organization [facility] Address [address] [facility] [place] [address] [place] [address] Care Team Providers Care Pantograph Ii Engraver Name Role Phone Jared Abrams MD Primary Care Provider Encounter Details Date Type Department Care Team (Late Contact Info) Description 08/25/2006 Abstract [facility] [address] [place] [address] David Foy, ELECTRICAL ENGINEER MEP [address] [place], [place] [id number] Social History Tobacco Use Types Packs/Day Years [...] (Late Contact Info) Description 08/03/2024 2:00 PM EQUIPMENT SERVICE ASSOCIATE Appointment [facility] One Day Services [address] [place] [address] Josué Cook MD [address] [address] documented as of this encounter Visit Diagnoses Not on filedocumented in this encounter Care Teams Pantograph Ii Engraver Relationship Specialty Start Date End Date Jared Abrams MD PCP - General 08/28/11 07/16/22 documented as of this encounter
--- OUTSIDE RECORDS SUMMARY | 2024-07-15 19:47 | XMS_ITS | Encounter Summary ---
Author Organization [facility] Address [address] [facility] [place] [address] [place] [address] Care Team Providers Care Caddy Name Role Phone Jared Abrams MD Primary Care Provider [phone] Encounter Details Date Type Department Care Team (Late st Contact Info) Description 06/12/2012 Abstract [facility] [address] [place] [address] Jared Abrams MD 1212 [place] [address] Social History Tobacco Use Types Packs/Day Years [...] st Contact Info) Description 08/03/2024 2:00 PM BASIN OPERATOR Appointment [facility] One Day Services [address] [place] [address] Josué Cook MD [address] [place] [address] documented as of this encounter Visit Diagnoses Diagnosis Other and unspecified hyperlipidemia documented in this encounter Care Teams Caddy Relationship Specialty Start Date End Date Jared Abrams MD PCP - General 08/28/11 07/16/22 documented as of this encounter
--- OUTSIDE RECORDS SUMMARY | 2024-07-15 19:47 | XMS_ITS | Encounter Summary ---
Author Organization [facility] Address [address] [place] [address] [place] [address] Care Team Providers Care Mold Loft Worker Name Role Phone Jared Abrams MD Primary Care Provider [phone] Encounter Details Date Type Department Care Team (Late Contact Info) Description 08/28/2011 Abstract [facility] [place] [address] Marii Vela MD [address] [facility] [place] [address] [phone] (Work) Social History Tobacco Use Types Packs/Day [...] Info) Description 08/03/2024 2:00 PM DIRECTOR OF GRANTS Appointment [facility] One Day Services [address] [place] [id number] Josué Cook MD 49[address] [facility] 8 [place] [address] documented as of this encounter Visit Diagnoses Diagnosis Acute renal failure (CMS/HCC) Acute kidney failure, unspecified documented in this encounter Care Teams Mold Loft Worker Relationship Specialty Start Date End Date Jared Abrams MD PCP - General 08/28/11 07/16/22 documented as of this encounter
--- OUTSIDE RECORDS SUMMARY | 2024-07-15 19:47 | XMS_ITS | Encounter Summary ---
Author Organization [facility] Address [address] [facility] [address] [place] [address] Care Team Providers Care Staff Radiation Therapist Name Role Phone Jared Abrams MD Primary Care Provider [phone] Encounter Details Date Type Department Care Team (Late st Contact Info) Description 06/26/2011 Abstract [facility] [address] [place] [address] David Foy, ACCESS SPEC [address] [place], [place] [phone] Social History Tobacco Use Types Packs/Day Years [...] st Contact Info) Description 08/03/2024 2:00 PM SEXUAL ASSAULT COUNSELLOR Appointment [facility] One Day Services [address] [place] [address] Josué Cook MD [address] [address] documented as of this encounter Visit Diagnoses Diagnosis Other screening mammogram documented in this encounter Care Teams Staff Radiation Therapist Relationship Specialty Start Date End Date Jared Abrams MD PCP - General 08/28/11 07/16/22 documented as of this encounter
--- OUTSIDE RECORDS SUMMARY | 2024-07-15 19:47 | XMS_ITS | Encounter Summary ---
Author Organization [facility] Address [address] [facility] [place] [address] [place] [address] Care Team Providers Care Bread Dumper Name Role Phone Jared Abrams MD Primary Care Provider [phone] Encounter Details Date Type Department Care Team (Late Contact Info) Description 08/22/2008 Abstract [facility] CONVERSION [address] [place] [address] Jared Abrams MD 1212 [place] [address] Social History Tobacco Use Types Packs/Day Years [...] (Late Contact Info) Description 08/03/2024 2:00 PM SORORITY MOTHER Appointment [facility] One Day Services [address] [place], [place] [phone] Josué Cook MD [address] [place] [address] documented as of this encounter Visit Diagnoses Not on filedocumented in this encounter Care Teams Bread Dumper Relationship Specialty Start Date End Date Jared Abrams MD PCP - General 08/28/11 07/16/22 documented as of this encounter
--- OUTSIDE RECORDS SUMMARY | 2024-07-15 19:47 | XMS_ITS | Encounter Summary ---
Author Organization [facility] Address [address] [place] [address] [place] [address] Care Team Providers Care Bathing Suit Maker Name Role Phone Jared Abrams MD Primary Care Provider [phone] Encounter Details Date Type Department Care Team (Late Contact Info) Description 09/29/2006 Abstract [facility] CONVERSION [address] [facility] [place] [address] Scar Diaz MD [address] [place] [address] Social History Tobacco Use Types Packs/Day Years [...] Contact Info) Description 08/03/2024 2:00 PM HAIRSPRING CUTTER Appointment [facility] One Day Services [address] [place] [address] Josué Cook MD [address] [place] [address] 8 [place] [address] documented as of this encounter Visit Diagnoses Not on filedocumented in this encounter Care Teams Bathing Suit Maker Relationship Specialty Start Date End Date Jared Abrams MD PCP - General 08/28/11 07/16/22 documented as of this encounter
--- OUTSIDE RECORDS SUMMARY | 2024-07-15 19:47 | XMS_ITS | Encounter Summary ---
Author Organization [facility] Address [address] [place] [address] [place] [address] Care Team Providers Care Potato Chip Sorter Name Role Phone Jared Abrams MD Primary Care Provider [phone] Encounter Details Date Type Department Care Team (Late Contact Info) Description 01/21/2011 Abstract [facility] Medicine [address] [place] [address] David Foy, PAN DEVULCANIZER HELPER 2[address] [place], [place] [phone] Social History Tobacco Use Types Packs/Day Years [...] (Late Contact Info) Description 08/03/2024 2:00 PM PACKAGER OR PACKER AND WEIGHER Appointment [facility] One Day Services [address] [place] [address] Josué Cook MD 49[address] [facility] 8 [place] [address] documented as of this encounter Visit Diagnoses Diagnosis Pain in joint, pelvic region and thigh documented in this encounter Care Teams Potato Chip Sorter Relationship Specialty Start Date End Date Jared Abrams MD PCP - General 08/28/11 07/16/22 documented as of this encounter
--- OUTSIDE RECORDS SUMMARY | 2024-07-15 19:47 | XMS_ITS | Encounter Summary ---
Author Organization [facility] Address [address] [facility] [place] [place] [address] [place] [address] Care Team Providers Care Survival Equipment Repairer Name Role Phone Jared Abrams MD Primary Care Provider [phone] Encounter Details Date Type Department Care Team (Late st Contact Info) Description 10/27/2012 Abstract [facility] [address] [place] [address] Jared Abrams MD 1212 [place] [address] Social History Tobacco Use Types Packs/Day Years [...] st Contact Info) Description 08/03/2024 2:00 PM ADMITTED ATTORNEYS Appointment [facility] One Day Services [address] [place] [address] Josué Cook MD [address] [place] [address] documented as of this encounter Visit Diagnoses Diagnosis Encounter for screening mammogram for high-risk patient documented in this encounter Care Teams Survival Equipment Repairer Relationship Specialty Start Date End Date Jared Abrams MD PCP - General 08/28/11 07/16/22 documented as of this encounter
--- OUTSIDE RECORDS SUMMARY | 2024-07-15 19:47 | XMS_ITS | Encounter Summary ---
Author Organization [facility] Address [address] [facility] [place] [address] [place] [address] Care Team Providers Care Button Maker And Installer Name Role Phone Jared Abrams MD Primary Care Provider [phone] Encounter Details Date Type Department Care Team (Late st Contact Info) Description 04/08/2012 Abstract [facility] [address] [place] [address] Jared Abrams MD 1212 [place] [address] Social History Tobacco Use Types Packs/Day Years [...] st Contact Info) Description 08/03/2024 2:00 PM NANOSCIENCE TECHNICIAN Appointment [facility] One Day Services [address] [place] [address] Josué Cook MD [address] [place] [address] documented as of this encounter Visit Diagnoses Diagnosis Anemia Anemia, unspecified documented in this encounter Care Teams Button Maker And Installer Relationship Specialty Start Date End Date Jared Abrams MD PCP - General 08/28/11 07/16/22 documented as of this encounter
--- OUTSIDE RECORDS SUMMARY | 2024-07-15 19:47 | XMS_ITS | Encounter Summary ---
Author Organization [facility] Address [address] [place] [address] [place] [address] Care Team Providers Care Slackman Name Role Phone Jared Abrams MD Primary Care Provider Encounter Details Date Type Department Care Team (Late Contact Info) Description 08/19/2006 Abstract [facility] CONVERSION [address] [facility] [place] [address] Scar Diaz MD [address] [place] [address] Social History Tobacco Use Types Packs/Day Years [...] (Late Contact Info) Description 08/03/2024 2:00 PM BUHR MILL OPERATOR Appointment [facility] One Day Services [address] [place] [address] Josué Cook MD [address] [place] [address] 8 [place] [address] documented as of this encounter Visit Diagnoses Not on filedocumented in this encounter Care Teams Slackman Relationship Specialty Start Date End Date Jared Abrams MD PCP - General 08/28/11 07/16/22 documented as of this encounter
--- OUTSIDE RECORDS SUMMARY | 2024-07-15 19:47 | XMS_ITS | Encounter Summary ---
Author Organization [facility] Address [address] [facility] [place] [address] [place] [address] Care Team Providers Care Despatching And Receiving Clerk Name Role Phone Jared Abrams MD Primary Care Provider [phone] Encounter Details Date Type Department Care Team (Late st Contact Info) Description 02/11/2014 Abstract [facility] One Day Services [address] [place] [address] Saji Vargas MD [address] [phone] Social History Tobacco Use Types Packs/Day Years [...] st Contact Info) Description 08/03/2024 2:00 PM ANIMAL DAYCARE PROVIDER Appointment [facility] One Day Services [address] [place] [address] Josué Cook MD [address] [address] documented as of this encounter Visit Diagnoses Diagnosis Osteoarthrosis involving lower leg documented in this encounter Care Teams Despatching And Receiving Clerk Relationship Specialty Start Date End Date Jared Abrams MD PCP - General 08/28/11 07/16/22 documented as of this encounter
--- OUTSIDE RECORDS SUMMARY | 2024-07-15 19:47 | XMS_ITS | Encounter Summary ---
Author Organization [facility] Address [address] [place] [address] [place] [address] Care Team Providers Care Hedis Nurse Name Role Phone Jared Abrams MD Primary Care Provider [phone] Encounter Details Date Type Department Care Team (Late st Contact Info) Description 02/08/2014 Abstract [facility] [address] [place] [address] Social History Tobacco Use Types Packs/Day Years [...] Contact Info) Description 08/03/2024 2:00 PM GLOBAL REGULATORY LEAD Appointment [facility] Day Services [address] [place] [address] Josué Cook MD [address] [facility] 8 [place] [address] documented as of this encounter Visit Diagnoses Diagnosis Pre-operative examination Preoperative examination, unspecified documented in this encounter Care Teams Hedis Nurse Relationship Specialty Start Date End Date Jared Abrams MD PCP - General 08/28/11 07/16/22 documented as of this encounter
--- OUTSIDE RECORDS SUMMARY | 2024-07-15 19:47 | XMS_ITS | Encounter Summary ---
Author Organization [facility] Address [address] [facility] [place] [address] [place] [address] Care Team Providers Care Waiter/Waitress Counter Name Role Phone Jared Abrams MD Primary Care Provider [phone] Encounter Details Date Type Department Care Team (Late Contact Info) Description 03/22/2010 Abstract [facility] CONVERSION 9515 [place] [address] Scar Diaz MD [address] [place] [address] Social History Tobacco Use Types Packs/Day Years [...] (Late Contact Info) Description 08/03/2024 2:00 PM ASSISTANT READING TEACHER Appointment [facility] Day [facility] [address] [place], [place] [phone] Josué Cook MD 49[address] [facility] 8 [place] [address] documented as of this encounter Visit Diagnoses Not on filedocumented in this encounter Care Teams Waiter/Waitress Counter Relationship Specialty Start Date End Date Jared Abrams MD PCP - General 08/28/11 07/16/22 documented as of this encounter
--- OUTSIDE RECORDS SUMMARY | 2024-07-15 19:47 | XMS_ITS | Encounter Summary ---
Author Organization [facility] Address [address] [facility] [place] [address] [place] [address] Care Team Providers Care Pulverizer Tender Name Role Phone Jared Abrams MD Primary Care Provider [phone] Encounter Details Date Type Department Care Team (Late Contact Info) Description 01/09/2009 Abstract [facility] CONVERSION [address] [place] [address] David Foy, SCENIC DESIGNER 2[address] [place], [place] [address] Social History Tobacco Use Types Packs/Day Years [...] Contact Info) Description 08/03/2024 2:00 PM ELECTRICAL APPLIANCE MECHANIC Appointment [facility] One Day Services [address] [place] [address] Josué Cook MD [address] [address] documented as of this encounter Visit Diagnoses Not on filedocumented in this encounter Care Teams Pulverizer Tender Relationship Specialty Start Date End Date Jared Abrams MD PCP - General 08/28/11 07/16/22 documented as of this encounter
--- OUTSIDE RECORDS SUMMARY | 2024-07-15 19:47 | XMS_ITS | Encounter Summary ---
Author Organization [facility] Address [address] [facility] [place] [address] [place] [address] Care Team Providers Care Relay Man Name Role Phone Jared Abrams MD Primary Care Provider [phone] Encounter Details Date Type Department Care Team (Late st Contact Info) Description 10/21/2011 Abstract [facility] [address] [place] [address] Jared Abrams MD 1212 [place] [address] Social History Tobacco Use Types Packs/Day Years [...] st Contact Info) Description 08/03/2024 2:00 PM DAY HAUL YOUTH SUPERVISOR Appointment [facility] One Day Services [address] [place] [address] Josué Cook MD [address] [place] [address] documented as of this encounter Visit Diagnoses Diagnosis Essential hypertension Unspecified essential hypertension documented in this encounter Care Teams Relay Man Relationship Specialty Start Date End Date Jared Abrams MD PCP - General 08/28/11 07/16/22 documented as of this encounter
--- OUTSIDE RECORDS SUMMARY | 2024-07-15 19:48 | XMS_ITS | Encounter Summary ---
Author Organization [facility] Address [address] [facility] [place] [address] [place] [address] Care Team Providers Care Wine Manager Name Role Phone Jared Abrams MD Primary Care Provider [phone] Encounter Details Date Type Department Care Team (Late Contact Info) Description 04/23/2004 Abstract [facility] CONVERSION [address] [place] [address] Jared Abrams MD 1212 [place] [address] Social History Tobacco Use Types Packs/Day Years [...] (Late Contact Info) Description 08/03/2024 2:00 PM APPLIANCE ADJUSTER Appointment [facility] One Day Services [address] [place], [place] [address] Josué Cook MD [address] [place] [address] documented as of this encounter Visit Diagnoses Not on filedocumented in this encounter Care Teams Wine Manager Relationship Specialty Start Date End Date Jared Abrams MD PCP - General 08/28/11 07/16/22 documented as of this encounter
--- OUTSIDE RECORDS SUMMARY | 2024-07-15 19:48 | XMS_ITS | Encounter Summary ---
Author Organization [facility] Address [address] [facility] [place] [address] [place] [address] Care Team Providers Care Journeyman Millwright Name Role Phone Jared Abrams MD Primary Care Provider [phone] Encounter Details Date Type Department Care Team (Late Contact Info) Description 08/14/2006 Abstract [facility] [address]15 [place] [address] Scar Diaz MD [address] [place] [address] Social History Tobacco Use Types Packs/Day Years [...] (Late Contact Info) Description 08/03/2024 2:00 PM KEYBOARDING CLERK Appointment [facility] Day [facility] [address] [place], [place] [phone] Josué Cook MD 49[address] [facility] 8 [place] [address] documented as of this encounter Visit Diagnoses Not on filedocumented in this encounter Care Teams Journeyman Millwright Relationship Specialty Start Date End Date Jared Abrams MD PCP - General 08/28/11 07/16/22 documented as of this encounter
--- OUTSIDE RECORDS SUMMARY | 2024-07-15 19:48 | XMS_ITS | Encounter Summary ---
Author Organization [facility] Address [address] [facility] [place] [address] [place] [address] Care Team Providers Care [place] Leverman Name Role Phone Jared Abrams MD Primary Care Provider [phone] Encounter Details Date Type Department Care Team (Late Contact Info) Description 10/06/2003 Abstract [facility] 9515 [place] [address] , Generic Conversion, Social History Tobacco Use [...] (Late Contact Info) Description 08/03/2024 2:00 PM DEVELOPMENTAL SPECIALIST Appointment [facility] [address] [place] [address] Josué Cook MD [address] [address] documented as of this encounter Visit Diagnoses Not on filedocumented in this encounter Care Teams [place] Leverman Relationship Specialty Start Date End Date Jared Abrams MD PCP - General 08/28/11 07/16/22 documented as of this encounter
--- OUTSIDE RECORDS SUMMARY | 2024-07-15 19:48 | XMS_ITS | Encounter Summary ---
Author Organization [facility] Address [address] [facility] [place] [address] [place] [address] Care Team Providers Care Brokerage Branch Manager Name Role Phone Jared Abrams MD Primary Care Provider Encounter Details Date Type Department Care Team (Late Contact Info) Description 04/19/2004 Abstract [facility] [address]15 [place] [address] Scar Diaz MD [address] [place] [address] Social History Tobacco Use Types Packs/Day Years [...] (Late Contact Info) Description 08/03/2024 2:00 PM BLUING OVEN TENDER Appointment [facility] Day [facility] [address] [place], [place] [id number] Josué Cook MD 49[address] [facility] 8 [place] [address] documented as of this encounter Visit Diagnoses Not on filedocumented in this encounter Care Teams Brokerage Branch Manager Relationship Specialty Start Date End Date Jared Abrams MD PCP - General 08/28/11 07/16/22 documented as of this encounter
--- OUTSIDE RECORDS SUMMARY | 2024-07-15 19:48 | XMS_ITS | Encounter Summary ---
Author Organization [facility] Address [address] [facility] [place] [address] [place] [address] Care Team Providers Care Glassware Selector Name Role Phone Jared Abrams MD Primary Care Provider [phone] Encounter Details Date Type Department Care Team (Late Contact Info) Description 07/25/2004 Abstract [facility] CONVERSION [address] [place] [address] Jared Abrams MD 1212 [place] [address] Social History Tobacco Use Types Packs/Day Years [...] (Late Contact Info) Description 08/03/2024 2:00 PM STENOTYPE MACHINE OPERATOR Appointment [facility] One Day Services [address] [place] [address] Josué Cook MD [address] [place] [address] documented as of this encounter Visit Diagnoses Not on filedocumented in this encounter Care Teams Glassware Selector Relationship Specialty Start Date End Date Jared Abrams MD PCP - General 08/28/11 07/16/22 documented as of this encounter
--- OUTSIDE RECORDS SUMMARY | 2024-07-15 19:48 | XMS_ITS | Encounter Summary ---
Author Organization [facility] Address [address] [facility] [place] [address] [place] [address] Care Team Providers Care Timber Skidder Name Role Phone Jared Abrams MD Primary Care Provider [phone] Servando Torre MD Primary Care Provider [phone] Encounter Details Date Type Department Care Team (Late st Contact Info) Description 09/26/2003 Abstract [facility] Conversion , Generic Conversion, [...] Contact Info) Description 08/03/2024 2:00 PM MANAGEMENT ACCOUNTS MANAGER Appointment [facility] Day [facility] [address] [place] [address] Josué Cook MD [address] [facility] 8 [place] [address] documented as of this encounter Visit Diagnoses Not on filedocumented in this encounter Care Teams Timber Skidder Relationship Specialty Start Date End Date Jared Abrams MD PCP - General 08/28/11 07/16/22 Servando Torre MD [address] [facility] [address] [place] [address] PCP - General FAMILY PRACTICE 07/17/22 documented as of this encounter
--- OUTSIDE RECORDS SUMMARY | 2024-07-15 19:48 | XMS_ITS | Encounter Summary ---
Author Organization [facility] Address [address] [facility] [place] [address] [place] [address] Care Team Providers Care Concrete Paving Machine Operator Name Role Phone Jared Abrams MD Primary Care Provider [phone] Encounter Details Date Type Department Care Team (Late Contact Info) Description 07/15/2003 Abstract [facility] 9515 [place] [address] , Generic Conversion, Social History Tobacco Use [...] (Late Contact Info) Description 08/03/2024 2:00 PM BLUE LINE OPERATOR Appointment [facility] [address] [place] [address] Josué Cook MD [address] [address] documented as of this encounter Visit Diagnoses Not on filedocumented in this encounter Care Teams Concrete Paving Machine Operator Relationship Specialty Start Date End Date Jared Abrams MD PCP - General 08/28/11 07/16/22 documented as of this encounter
--- OUTSIDE RECORDS SUMMARY | 2024-07-15 19:48 | XMS_ITS | Encounter Summary ---
Author Organization [facility] Address [address] [facility] [place] [address] [place] [address] Care Team Providers Care Sales Trainer Name Role Phone Jared Abrams MD Primary Care Provider [phone] Encounter Details Date Type Department Care Team (Late Contact Info) Description 05/01/2004 Abstract [facility] CONVERSION [address] [facility] [address] Scar Diaz MD [address] [place] [address] [id number] Social History Tobacco Use Types Packs/Day Years [...] (Late Contact Info) Description 08/03/2024 2:00 PM FRUIT DISTRIBUTOR Appointment [facility] One Day Services [address] [place] [address] Josué Cook MD [address] [place] [address] 8 [place] [address] documented as of this encounter Visit Diagnoses Not on filedocumented in this encounter Care Teams Sales Trainer Relationship Specialty Start Date End Date Jared Abrams MD PCP - General 08/28/11 07/16/22 documented as of this encounter
--- OUTSIDE RECORDS SUMMARY | 2024-07-15 19:48 | XMS_ITS | Encounter Summary ---
Author Organization [facility] Address [address] [facility] [place] [address] [place] [address] Care Team Providers Care Housekeeper And Laundry Assistant Name Role Phone Jared Abrams MD Primary Care Provider [phone] Encounter Details Date Type Department Care Team (Late st Contact Info) Description 11/17/2003 Abstract [facility] Clinics Conversion , Generic ConversionMD Social History [...] st Contact Info) Description 08/03/2024 2:00 PM COLOR MAKER FORMULATOR Appointment [facility] One Day [facility] [address] [place] [address] Josué Cook MD [address] [address] documented as of this encounter Visit Diagnoses Not on filedocumented in this encounter Care Teams Housekeeper And Laundry Assistant Relationship Specialty Start Date End Date Jared Abrams MD PCP - General 08/28/11 07/16/22 documented as of this encounter
--- OUTSIDE RECORDS SUMMARY | 2024-07-15 19:48 | XMS_ITS | Encounter Summary ---
Author Organization [facility] Address [address] [facility] [place] [address] [place] [address] Care Team Providers Care Trauma Director Name Role Phone Jared Abrams MD Primary Care Provider [phone] Encounter Details Date Type Department Care Team (Late Contact Info) Description 03/19/2005 Abstract [facility] CONVERSION [address] [place] [address] Scar Diaz MD [address] [place] [address] Social History Tobacco Use Types Packs/Day Years [...] (Late Contact Info) Description 08/03/2024 2:00 PM LEATHER SCRUBBER Appointment [facility] Day [facility] [address] [place], [place] [phone] Josué Cook MD [address] [facility] 8 [place] [address] documented as of this encounter Visit Diagnoses Not on filedocumented in this encounter Care Teams Trauma Director Relationship Specialty Start Date End Date Jared Abrams MD PCP - General 08/28/11 07/16/22 documented as of this encounter
--- OUTSIDE RECORDS SUMMARY | 2024-07-15 19:48 | XMS_ITS | Encounter Summary ---
Author Organization [facility] Address [address] [facility] [place] [address] [place] [address] Care Team Providers Care Science Manager Name Role Phone Jared Abrams MD Primary Care Provider [phone] Encounter Details Date Type Department Care Team (Late st Contact Info) Description 09/22/2003 Abstract [facility] Bill Durham MD [address] [address] Social History Tobacco Use Types [...] FX W/INTR FIX FEMUR Consultants: DR TREVIZO KEN AND FISH CLEANER documented in this encounter Plan of Treatment Upcoming Encounters Date Type Department Care Team (Late st Contact Info) Description 08/03/2024 2:00 PM CHICKEN AND FISH CLEANER Appointment [facility] Day Services [address] [place] [address] Josué Cook MD [address] [address] documented as of this encounter Visit Diagnoses Not on filedocumented in this encounter Care Teams Science Manager Relationship Specialty Start Date End Date Jared Abrams MD PCP - General 08/28/11 07/16/22 documented as of this encounter
--- OUTSIDE RECORDS SUMMARY | 2024-07-15 19:48 | XMS_ITS | Encounter Summary ---
Author Organization [facility] Address [address] [facility] [place] [address] [place] [address] Care Team Providers Care Engine Service Repairer Name Role Phone Jared Abrams MD Primary Care Provider [phone] Encounter Details Date Type Department Care Team (Late st Contact Info) Description 04/21/2004 Abstract [facility] Clinics Conversion , Generic ConversionMD [...] Contact Info) Description 08/03/2024 2:00 PM CATTLE TRADER Appointment [facility] One Day [facility] [address] [place] [address] Josué Cook MD [address] [address] documented as of this encounter Visit Diagnoses Not on filedocumented in this encounter Care Teams Engine Service Repairer Relationship Specialty Start Date End Date Jared Abrams MD PCP - General 08/28/11 07/16/22 documented as of this encounter
--- OUTSIDE RECORDS SUMMARY | 2024-07-15 19:48 | XMS_ITS | Encounter Summary ---
Author Organization [facility] Address [address] [facility] [place] [address] [place] [address] Care Team Providers Care Soils Analyst Name Role Phone Jared Abrams MD Primary Care Provider [phone] Encounter Details Date Type Department Care Team (Late Contact Info) Description 11/24/2001 Abstract [facility] CONVERSION [address] [place] [address] , Generic ConversionMD Social History Tobacco Use [...] (Late Contact Info) Description 08/03/2024 2:00 PM POTATO INSPECTOR Appointment [facility] [address] [place] [address] Josué Cook MD [address] [address] documented as of this encounter Visit Diagnoses Not on filedocumented in this encounter Care Teams Soils Analyst Relationship Specialty Start Date End Date Jared Abrams MD PCP - General 08/28/11 07/16/22 documented as of this encounter
--- OUTSIDE RECORDS SUMMARY | 2024-07-15 19:48 | XMS_ITS | Encounter Summary ---
Author Organization [facility] Address [address] [facility] [place] [address] [place] [address] Care Team Providers Care Stabber Name Role Phone Jared Abrams MD Primary Care Provider [phone] Encounter Details Date Type Department Care Team (Late Contact Info) Description 09/06/2004 Abstract [facility] CON[facility] [address]15 [place] [address] Scar Diaz MD [address] [place] [address] Social History Tobacco Use Types Packs/Day Years [...] (Late Contact Info) Description 08/03/2024 2:00 PM DRIER TRANSFER CAR OPERATOR Appointment [facility] Day [facility] [address] [place], [place] [phone] Josué Cook MD [address] [facility] 8 [place] [address] documented as of this encounter Visit Diagnoses Not on filedocumented in this encounter Care Teams Stabber Relationship Specialty Start Date End Date Jared Abrams MD PCP - General 08/28/11 07/16/22 documented as of this encounter
--- OUTSIDE RECORDS SUMMARY | 2024-07-15 19:48 | XMS_ITS | Encounter Summary ---
Author Organization [facility] Address [address] [facility] [place] [address] [place] [address] Care Team Providers Care Lead Technical Architect Name Role Phone Jared Abrams MD Primary Care Provider [phone] Encounter Details Date Type Department Care Team (Late Contact Info) Description 10/04/2003 Abstract [facility] CONVERSION [address] [place] [address] , Generic ConversionMD Social History Tobacco Use [...] (Late Contact Info) Description 08/03/2024 2:00 PM SLIVER HANDLER Appointment [facility] Services [address] [place] [address] Josué Cook MD [address] [address] documented as of this encounter Visit Diagnoses Not on filedocumented in this encounter Care Teams Lead Technical Architect Relationship Specialty Start Date End Date Jared Abrams MD PCP - General 08/28/11 07/16/22 documented as of this encounter
--- OUTSIDE RECORDS SUMMARY | 2024-07-15 19:48 | XMS_ITS | Encounter Summary ---
Author Organization [facility] Address [address] [facility] [place] [address] [place] [address] Care Team Providers Care Traffic Workforce Representative Name Role Phone Jared Abrams MD Primary Care Provider [phone] Encounter Details Date Type Department Care Team (Late Contact Info) Description 11/17/2003 Abstract [facility] CONVERSION [address]15 [place] [address] Scar Diaz MD [address] [place] [address] Social History Tobacco Use Types Packs/Day Years [...] (Late Contact Info) Description 08/03/2024 2:00 PM BAIT DIGGER Appointment [facility] Day [facility] [address] [place], [place] [phone] Josué Cook MD [address] [facility] 8 [place] [address] documented as of this encounter Visit Diagnoses Not on filedocumented in this encounter Care Teams Traffic Workforce Representative Relationship Specialty Start Date End Date Jared Abrams MD PCP - General 08/28/11 07/16/22 documented as of this encounter
--- OUTSIDE RECORDS SUMMARY | 2024-07-15 19:48 | XMS_ITS | Encounter Summary ---
Author Organization [facility] Address [address] [facility] [place] [address] [place] [address] Care Team Providers Care Drug And Alcohol Counselor Name Role Phone Jared Abrams MD Primary Care Provider [phone] Encounter Details Date Type Department Care Team (Late st Contact Info) Description 09/22/2003 Abstract [facility] Clinics Conversion , Generic ConversionMD Social History [...] st Contact Info) Description 08/03/2024 2:00 PM FORMWORK CARPENTER Appointment [facility] One Day [facility] [address] [place] [address] Josué Cook MD [address] [address] documented as of this encounter Visit Diagnoses Not on filedocumented in this encounter Care Teams Drug And Alcohol Counselor Relationship Specialty Start Date End Date Jared Abrams MD PCP - General 08/28/11 07/16/22 documented as of this encounter
--- OUTSIDE RECORDS SUMMARY | 2024-07-15 19:48 | XMS_ITS | Encounter Summary ---
Author Organization [facility] Address [address] [facility] [place] [address] [place] [address] Care Team Providers Care Sand Mill Operator Facing Sand Name Role Phone Jared Abrams MD Primary Care Provider [phone] Encounter Details Date Type Department Care Team (Late Contact Info) Description 05/17/2004 Abstract [facility] CONVERSION [address]15 [place] [address] Scar Diaz MD [address] [place] [address] Social History Tobacco Use Types Packs/Day Years [...] Contact Info) Description 08/03/2024 2:00 PM OCCUPATIONAL ANALYST Appointment [facility] Day [facility] [address] [place], [place] [phone] Josué oCok MD [address] [facility] 8 [place] [address] documented as of this encounter Visit Diagnoses Not on filedocumented in this encounter Care Teams Sand Mill Operator Facing Sand Relationship Specialty Start Date End Date Jared Abrams MD PCP - General 08/28/11 07/16/22 documented as of this encounter
--- OUTSIDE RECORDS SUMMARY | 2024-07-15 19:48 | XMS_ITS | Encounter Summary ---
Author Organization [facility] Address [address] [facility] [place] [address] [place] [address] Care Team Providers Care Battery Test Engineer Name Role Phone Jared Abrams MD Primary Care Provider [phone] Encounter Details Date Type Department Care Team (Late st Contact Info) Description 04/19/2004 Abstract [facility] Clinics Conversion , Generic ConversionMD Social [...] st Contact Info) Description 08/03/2024 2:00 PM CODE CLERK Appointment [facility] One Day [facility] [address] [place] [address] Josué Cook MD [address] [address] documented as of this encounter Visit Diagnoses Not on filedocumented in this encounter Care Teams Battery Test Engineer Relationship Specialty Start Date End Date Jared Abrams MD PCP - General 08/28/11 07/16/22 documented as of this encounter
--- OUTSIDE RECORDS SUMMARY | 2024-07-15 19:48 | XMS_ITS | Encounter Summary ---
Author Organization [facility] Address [address] [facility] [place] [address] [place] [address] Care Team Providers Care Scaleman Name Role Phone Jared Abrams MD Primary Care Provider [phone] Encounter Details Date Type Department Care Team (Late Contact Info) Description 07/12/2003 Abstract [facility] CONVERSION [address] [place] [address] , Generic ConversionMD Social History Tobacco Use [...] (Late Contact Info) Description 08/03/2024 2:00 PM CRM CAMPAIGN MANAGER Appointment [facility] Services [address] [place] [address] Josué Cook MD [address] [address] documented as of this encounter Visit Diagnoses Not on filedocumented in this encounter Care Teams Scaleman Relationship Specialty Start Date End Date Jared Abrams MD PCP - General 08/28/11 07/16/22 documented as of this encounter
--- OUTSIDE RECORDS SUMMARY | 2024-07-15 19:48 | XMS_ITS | Encounter Summary ---
Author Organization [facility] Address [address] [facility] [place] [address] [place] [address] Care Team Providers Care Mechanical Shop Laborer Name Role Phone Jared Abrams MD Primary Care Provider [phone] Encounter Details Date Type Department Care Team (Late Contact Info) Description 05/08/2004 Abstract [facility] CONVERSION [address] [place] [address] Scar Diaz MD [address] [place] [id number] Social History Tobacco Use Types Packs/Day Years [...] Contact Info) Description 08/03/2024 2:00 PM GUM COOK Appointment [facility] One Day Services [address] [place] [address] Josué Cook MD [address] [place] [address] 8 [place] [address] documented as of this encounter Visit Diagnoses Not on filedocumented in this encounter Care Teams Mechanical Shop Laborer Relationship Specialty Start Date End Date Jared Abrams MD PCP - General 08/28/11 07/16/22 documented as of this encounter
--- OUTSIDE RECORDS SUMMARY | 2024-07-15 19:48 | XMS_ITS | Encounter Summary ---
Author Organization [facility] Address [address] [facility] [place] [address] [place] [address] Care Team Providers Care Swimming Pool Maintenance Supervisor Name Role Phone Jared Abrams MD Primary Care Provider [phone] Encounter Details Date Type Department Care Team (Late Contact Info) Description 03/12/2004 Abstract [facility] CONVERSION [address] [place] [address] Jared Abrams MD [address] [place] [address] Social History Tobacco Use Types Packs/Day Years [...] (Late Contact Info) Description 08/03/2024 2:00 PM HEEL REDUCER Appointment [facility] One Day Services [address] [place] [address] Josué Cook MD [address] [place] [address] documented as of this encounter Visit Diagnoses Not on filedocumented in this encounter Care Teams Swimming Pool Maintenance Supervisor Relationship Specialty Start Date End Date Jared Abrams MD PCP - General 08/28/11 07/16/22 documented as of this encounter
--- OUTSIDE RECORDS SUMMARY | 2024-07-15 19:48 | XMS_ITS | Encounter Summary ---
Author Organization [facility] Address [address] [facility] [place] [address] [place] [address] Care Team Providers Care Mechanical Pencils Assembler Name Role Phone Jared Abrams MD Primary Care Provider [phone] Encounter Details Date Type Department Care Team (Late Contact Info) Description 11/11/2002 Abstract [facility] CONVERSION [address] [place] [address] , Generic ConversionMD Social History Tobacco Use [...] (Late Contact Info) Description 08/03/2024 2:00 PM TECHNICIAN ASSISTANT Appointment [facility] Services [address] [place] [address] Josué Cook MD [address] [address] documented as of this encounter Visit Diagnoses Not on filedocumented in this encounter Care Teams Mechanical Pencils Assembler Relationship Specialty Start Date End Date Jared Abrams MD PCP - General 08/28/11 07/16/22 documented as of this encounter
--- OUTSIDE RECORDS SUMMARY | 2024-07-15 19:48 | XMS_ITS | Encounter Summary ---
Author Organization [facility] Address [address] [place] [address] [place] [address] Care Team Providers Care Typewriter Tester Name Role Phone Jared Abrams MD Primary Care Provider [phone] Encounter Details Date Type Department Care Team (Late Contact Info) Description 09/22/2003 Abstract [facility] CONVERSION [address]15 [place] [address] Bill Bhatia MD [address] [facility] [address] [place] [address] Social History Tobacco Use Types [...] (Late Contact Info) Description 08/03/2024 2:00 PM ROD MILL TENDER Appointment [facility] Day [facility] [address] [place], [place] [phone] Josué Cook MD [address] [address] documented as of this encounter Visit Diagnoses Not on filedocumented in this encounter Care Teams Typewriter Tester Relationship Specialty Start Date End Date Jared Abrams MD PCP - General 08/28/11 07/16/22 documented as of this encounter
--- OUTSIDE RECORDS SUMMARY | 2024-07-15 19:48 | XMS_ITS | Encounter Summary ---
Author Organization [facility] Address [address] [place] [address] [place] [address] Care Team Providers Care Health Club Attendant Name Role Phone Jared Abrams MD Primary Care Provider [phone] Encounter Details Date Type Department Care Team (Late Contact Info) Description 08/12/2006 Abstract [facility] CONVERSION [address]15 [place] [address] Jared Abrams MD [facility] [place] [address] Social History Tobacco Use Types Packs/Day Years [...] (Late Contact Info) Description 08/03/2024 2:00 PM CASTING ROOM HELPER Appointment [facility] Day [facility] [address] [place], [place] [address] Josué [place] [address] [place] [address] documented as of this encounter Visit Diagnoses Not on filedocumented in this encounter Care Teams Health Club Attendant Relationship Specialty Start Date End Date Jared Abrams MD PCP - General 08/28/11 07/16/22 documented as of this encounter
--- OUTSIDE RECORDS SUMMARY | 2024-07-15 19:48 | XMS_ITS | Encounter Summary ---
Author Organization [facility] Address [address] [facility] [place] [address] [place] [address] Care Team Providers Care Vehicle Check In Clerk Name Role Phone Jared Abrams MD Primary Care Provider [phone] Encounter Details Date Type Department Care Team (Late Contact Info) Description 10/28/[address] [facility] CONVERSION [address] [place] [address] Jared Abrams MD 1212 [place] [address] Social History Tobacco Use Types Packs/Day Years [...] (Late Contact Info) Description 08/03/2024 2:00 PM ASSOCIATE SPA DIRECTOR Appointment [facility] One Day Services [address] [place], [place] [address] Josué Cook MD [address] [place] [address] documented as of this encounter Visit Diagnoses Not on filedocumented in this encounter Care Teams Vehicle Check In Clerk Relationship Specialty Start Date End Date Jared Abrams MD PCP - General 08/28/11 07/16/22 documented as of this encounter
--- OUTSIDE RECORDS SUMMARY | 2024-07-15 19:48 | XMS_ITS | Encounter Summary ---
Author Organization [facility] Address [address] [facility] [place] [address] [place] [address] Care Team Providers Care Metal Riveter Name Role Phone Jared Abrams MD Primary Care Provider [phone] Encounter Details Date Type Department Care Team (Late Contact Info) Description 10/07/2003 Abstract [facility] CONVERSION [address] [place] [address] , Generic ConversionMD Social History Tobacco Use [...] (Late Contact Info) Description 08/03/2024 2:00 PM DAUB COLOR MIXER Appointment [facility] Services [address] [place] [address] Josué Cook MD [address] [address] documented as of this encounter Visit Diagnoses Not on filedocumented in this encounter Care Teams Metal Riveter Relationship Specialty Start Date End Date Jared Abrams MD PCP - General 08/28/11 07/16/22 documented as of this encounter
--- OUTSIDE RECORDS SUMMARY | 2024-07-15 19:48 | XMS_ITS | Encounter Summary ---
Author Organization [facility] Address [address] [facility] [place] [address] [place] [address] Care Team Providers Care Law Firm Consultant Name Role Phone Jared Abrams MD Primary Care Provider [phone] Encounter Details Date Type Department Care Team (Late Contact Info) Description 12/25/2004 Abstract [facility] CONVERSION [address] [facility] [place] [address] Scar Diaz MD [address] [place] [address] Social History Tobacco Use Types Packs/Day Years [...] Info) Description 08/03/2024 2:00 PM MARKET RESEARCH COORDINATOR Appointment [facility] One Day Services [address] [place] [address] Josué Cook MD [address] [place] [address] 8 [place] [address] documented as of this encounter Visit Diagnoses Not on filedocumented in this encounter Care Teams Law Firm Consultant Relationship Specialty Start Date End Date Jared Abrams MD PCP - General 08/28/11 07/16/22 documented as of this encounter
--- OUTSIDE RECORDS SUMMARY | 2024-07-15 19:48 | XMS_ITS | Encounter Summary ---
Author Organization [facility] Address [address] [facility] [place] [address] [place] [address] Care Team Providers Care Coal Washer Tender Name Role Phone Jared Abrams MD Primary Care Provider [phone] Encounter Details Date Type Department Care Team (Late st Contact Info) Description 04/19/2004 Abstract [facility] Conversion Lauro Becerra MD [address] [id number] Social History Tobacco Use Types Packs/Day Years [...] DEVICES FROM FEMUR / SANTHOSH Consultants: SANTHOSH ITY PROJECT MANAGER documented in this encounter Plan of Treatment Upcoming Encounters Date Type Department Care Team (Late st Contact Info) Description 08/03/2024 2:00 PM QUALITY PROJECT MANAGER Appointment [facility] Day [facility] [address] [place] [address] Josué Cook MD [address] [facility] 8 [place] [address] documented as of this encounter Visit Diagnoses Not on filedocumented in this encounter Care Teams Coal Washer Tender Relationship Specialty Start Date End Date Jared Abrams MD PCP - General 08/28/11 07/16/22 documented as of this encounter
--- OUTSIDE RECORDS SUMMARY | 2024-07-15 19:48 | XMS_ITS | Encounter Summary ---
Author Organization [facility] Address [address] [place] [address] [place] [address] Care Team Providers Care Pharmacy District Manager Name Role Phone Jared Abrams MD Primary Care Provider [phone] Encounter Details Date Type Department Care Team (Late Contact Info) Description 02/23/2004 Abstract [facility] CONVERSION 9515 [place] [address] Scar Diaz MD [address] [place] [address] Social History Tobacco Use Types Packs/Day Years [...] (Late Contact Info) Description 08/03/2024 2:00 PM TERMINAL SUPERINTENDENT Appointment [facility] Day [facility] [address] [place], [place] [id number] Josué Cook MD [address] [facility] 8 [place] [address] documented as of this encounter Visit Diagnoses Not on filedocumented in this encounter Care Teams Pharmacy District Manager Relationship Specialty Start Date End Date Jared Abrams MD PCP - General 08/28/11 07/16/22 documented as of this encounter
--- OUTSIDE RECORDS SUMMARY | 2024-07-15 19:48 | XMS_ITS | Encounter Summary ---
Author Organization [facility] Address [address] [facility] [place] [address] [place] [address] Care Team Providers Care Enterprise Records Analyst Name Role Phone Jared Abrams MD Primary Care Provider [phone] Encounter Details Date Type Department Care Team (Late st Contact Info) Description 10/27/2003 Abstract [facility] Conversion , Generic ConversionMD Social History [...] st Contact Info) Description 08/03/2024 2:00 PM BENCH ASSEMBLER OPERATOR Appointment [facility] One Day [facility] [address] [place] [address] Josué Cook MD [address] [address] documented as of this encounter Visit Diagnoses Not on filedocumented in this encounter Care Teams Enterprise Records Analyst Relationship Specialty Start Date End Date Jared Abrams MD PCP - General 08/28/11 07/16/22 documented as of this encounter
--- OUTSIDE RECORDS SUMMARY | 2024-07-15 19:48 | XMS_ITS | Encounter Summary ---
Author Organization [facility] Address [address] [place] [address] [place] [address] Care Team Providers Care Detention Deputy Name Role Phone Jared Abrams MD Primary Care Provider [phone] Encounter Details Date Type Department Care Team (Late Contact Info) Description 03/22/2004 Abstract [facility] CONVERSION 9515 [place] [address] Scar Diaz MD [address] [place] [address] Social History Tobacco Use Types Packs/Day Years [...] (Late Contact Info) Description 08/03/2024 2:00 PM PHOTO STUDIO ASSISTANT Appointment [facility] Day [facility] [address] [place], [place] [address] Josué Cook MD [address] [facility] 8 [place] [address] documented as of this encounter Visit Diagnoses Not on filedocumented in this encounter Care Teams Detention Deputy Relationship Specialty Start Date End Date Jared Abrams MD PCP - General 08/28/11 07/16/22 documented as of this encounter
--- OUTSIDE RECORDS SUMMARY | 2024-07-15 19:48 | XMS_ITS | Encounter Summary ---
Author Organization [facility] Address [address] [facility] [address] [place] [address] Care Team Providers Care Rn Acls Name Role Phone Jared Abrams MD Primary Care Provider [phone] Encounter Details Date Type Department Care Team (Late Contact Info) Description 07/18/2004 Abstract [facility] CONVERSION 9515 [place] [address] Jared Abrams MD [facility] [place] [address] Social History Tobacco Use Types Packs/Day Years [...] (Late Contact Info) Description 08/03/2024 2:00 PM TYPESETTING MACHINE OPERATOR/TENDER Appointment [facility] Day [facility] [address] [place], [place] [id number] Josué [place] [address] [place] [address] documented as of this encounter Visit Diagnoses Not on filedocumented in this encounter Care Teams Rn Acls Relationship Specialty Start Date End Date Jared Abrams MD PCP - General 08/28/11 07/16/22 documented as of this encounter
--- OUTSIDE RECORDS SUMMARY | 2024-07-15 19:48 | XMS_ITS | Encounter Summary ---
Author Organization [facility] Address [address] [facility] [place] [address] [place] [address] Care Team Providers Care Blood Donor Recruiter Name Role Phone Jared Abrams MD Primary Care Provider [phone] Encounter Details Date Type Department Care Team (Late st Contact Info) Description 10/06/2003 Abstract [facility] Conversion , Generic ConversionMD Social [...] st Contact Info) Description 08/03/2024 2:00 PM BODY MAKER Appointment [facility] One Day [facility] [address] [place] [address] Josué Cook MD [address] [address] documented as of this encounter Visit Diagnoses Not on filedocumented in this encounter Care Teams Blood Donor Recruiter Relationship Specialty Start Date End Date Jared Abrams MD PCP - General 08/28/11 07/16/22 documented as of this encounter
--- OUTSIDE RECORDS SUMMARY | 2024-07-15 19:48 | XMS_ITS | Encounter Summary ---
Author Organization [facility] Address [address] [place] [address] [place] [address] Care Team Providers Care Tight Rope Walker Name Role Phone Jared Abrams MD Primary Care Provider [phone] Encounter Details Date Type Department Care Team (Late Contact Info) Description 2006 Abstract [facility] CONVERSION 9515 [place] [address] Scar Diaz MD [address] [place] [address] Social History Tobacco Use Types Packs/Day Years [...] (Late Contact Info) Description 08/03/2024 2:00 PM BANDER AND CELLOPHANER MACHINE Appointment [facility] Day [facility] [address] [place], [place] [phone] Josué Cook MD 49[address] [facility] 8 [place] [address] documented as of this encounter Visit Diagnoses Not on filedocumented in this encounter Care Teams Tight Rope Walker Relationship Specialty Start Date End Date Jared Abrams MD PCP - General 08/28/11 07/16/22 documented as of this encounter
--- OUTSIDE RECORDS SUMMARY | 2024-07-15 19:48 | XMS_ITS | Encounter Summary ---
Author Organization [facility] Address [address] [facility] [place] [address] [place] [address] Care Team Providers Care Aquatic Performer Name Role Phone Jared Abrams MD Primary Care Provider [phone] Encounter Details Date Type Department Care Team (Late Contact Info) Description 12/19/2003 Abstract [facility] CONVERSION [address] [place] [address] Jared Abrams MD 1212 [place] [address] Social History Tobacco Use Types Packs/Day Years [...] (Late Contact Info) Description 08/03/2024 2:00 PM AGENT Appointment [facility] One Day Services [address] [place], [place] [address] Josué Cook MD [address] [place] [address] documented as of this encounter Visit Diagnoses Not on filedocumented in this encounter Care Teams Aquatic Performer Relationship Specialty Start Date End Date Jared Abrams MD PCP - General 08/28/11 07/16/22 documented as of this encounter
--- OUTSIDE RECORDS SUMMARY | 2024-07-15 19:48 | XMS_ITS | Encounter Summary ---
Author Organization [facility] Address [address] [facility] [place] [address] [place] [address] Care Team Providers Care Electrical Assembly Technician Name Role Phone Jared Abrams MD Primary Care Provider [phone] Encounter Details Date Type Department Care Team (Late Contact Info) Description 08/07/2005 Abstract [facility] CONVERSION 9515 [place] [address] Jared Abrams MD [facility] [place] [address] Social History Tobacco Use Types Packs/Day Years [...] (Late Contact Info) Description 08/03/2024 2:00 PM CEMENTER MACHINE Appointment [facility] Day [facility] [address] [place], [place] [phone] Josué [place] [address] [place] [address] documented as of this encounter Visit Diagnoses Not on filedocumented in this encounter Care Teams Electrical Assembly Technician Relationship Specialty Start Date End Date Jared Abrams MD PCP - General 08/28/11 07/16/22 documented as of this encounter
--- OUTSIDE RECORDS SUMMARY | 2024-07-15 19:48 | XMS_ITS | Encounter Summary ---
Author Organization [facility] Address [address] [facility] [place] [address] [place] [address] Care Team Providers Care C 13 Catapult Operator Name Role Phone Jared Abrams MD Primary Care Provider [phone] Encounter Details Date Type Department Care Team (Late Contact Info) Description 12/15/2003 Abstract [facility] CONVERSION 9515 [place] [address] Scar Diaz MD [address] [place] [address] Social History Tobacco Use Types Packs/Day Years [...] (Late Contact Info) Description 08/03/2024 2:00 PM NATUROPATHIC PHYSICIAN Appointment [facility] Day [facility] [address] [place], [place] [phone] Josué Cook MD 49[address] [facility] 8 [place] [address] documented as of this encounter Visit Diagnoses Not on filedocumented in this encounter Care Teams C 13 Catapult Operator Relationship Specialty Start Date End Date Jared Abrams MD PCP - General 08/28/11 07/16/22 documented as of this encounter
--- OUTSIDE RECORDS SUMMARY | 2024-07-15 19:48 | XMS_ITS | Encounter Summary ---
Author Organization [facility] Address [address] [facility] [place] [address] [place] [address] Care Team Providers Care Sweeping Compound Blender Name Role Phone Jared Abrams MD Primary Care Provider [phone] Encounter Details Date Type Department Care Team (Late Contact Info) Description 04/30/2004 Abstract [facility] CONVERSION [address] [facility] [place] [address] Scar Diaz MD [address] [place] [phone] Social History Tobacco Use Types Packs/Day Years [...] (Late Contact Info) Description 08/03/2024 2:00 PM HEAD WOOD GRINDER Appointment [facility] One Day Services [address] [place] [address] Josué Cook MD [address] [place] [address] 8 [place] [address] documented as of this encounter Visit Diagnoses Not on filedocumented in this encounter Care Teams Sweeping Compound Blender Relationship Specialty Start Date End Date Jared Abrams MD PCP - General 08/28/11 07/16/22 documented as of this encounter
--- OUTSIDE RECORDS SUMMARY | 2024-07-15 19:48 | XMS_ITS | Encounter Summary ---
Author Organization [facility] Address [address] [facility] [place] [address] [place] [address] Care Team Providers Care Lace Burn Out Tender Name Role Phone Jared Abrams MD Primary Care Provider [phone] Encounter Details Date Type Department Care Team (Late Contact Info) Description 04/28/2004 Abstract [facility] CONVERSION [address] [facility] [address] Scar Diaz MD [address] [place] [phone] Social History Tobacco Use Types Packs/Day Years [...] (Late Contact Info) Description 08/03/2024 2:00 PM SOLE CONDITIONER Appointment [facility] One Day Services [address] [place] [address] Josué Cook MD [address] [place] [address] 8 [place] [address] documented as of this encounter Visit Diagnoses Not on filedocumented in this encounter Care Teams Lace Burn Out Tender Relationship Specialty Start Date End Date Jared Abrams MD PCP - General 08/28/11 07/16/22 documented as of this encounter
--- OUTSIDE RECORDS SUMMARY | 2024-07-15 19:48 | XMS_ITS | Encounter Summary ---
Author Organization [facility] Address [address] [facility] [place] [address] [place] [address] Care Team Providers Care Ergonomist Name Role Phone Jared Abrams MD Primary Care Provider [phone] Encounter Details Date Type Department Care Team (Late Contact Info) Description 12/27/[address] [facility] CONVERSION [address] [place] [address] Jared Abrams MD 1212 [place] [address] Social History Tobacco Use Types Packs/Day Years [...] (Late Contact Info) Description 08/03/2024 2:00 PM SENIOR TAX MANAGER Appointment [facility] One Day Services [address] [place] [address] Josué Cook MD [address] [place] [address] documented as of this encounter Visit Diagnoses Not on filedocumented in this encounter Care Teams Ergonomist Relationship Specialty Start Date End Date Jared Abrams MD PCP - General 08/28/11 07/16/22 documented as of this encounter
--- OUTSIDE RECORDS SUMMARY | 2024-07-15 19:48 | XMS_ITS | Encounter Summary ---
Author Organization [facility] Address [address] [facility] [place] [address] [place] [address] Care Team Providers Care Retail Sales Vitamin Consultant Name Role Phone Jared Abrams MD Primary Care Provider [phone] Encounter Details Date Type Department Care Team (Late Contact Info) Description 01/12/2004 Abstract [facility] CONVERSION 9515 [place] [address] Scar Diaz MD [address] [place] [address] Social History Tobacco Use Types Packs/Day Years [...] (Late Contact Info) Description 08/03/2024 2:00 PM NECKTIE CENTRALIZING MACHINE OPERATOR Appointment [facility] Day [facility] [address] [place], [place] [phone] Josué Cook MD [address] [facility] 8 [place] [address] documented as of this encounter Visit Diagnoses Not on filedocumented in this encounter Care Teams Retail Sales Vitamin Consultant Relationship Specialty Start Date End Date Jared Abrams MD PCP - General 08/28/11 07/16/22 documented as of this encounter
--- OUTSIDE RECORDS SUMMARY | 2024-07-15 19:48 | XMS_ITS | Encounter Summary ---
Author Organization [facility] Address [address] [facility] [place] [address] [place] [address] Care Team Providers Care Traffic Inspector Name Role Phone Jared Abrams MD Primary Care Provider [phone] Encounter Details Date Type Department Care Team (Late Contact Info) Description 09/26/2003 Abstract [facility] CONVERSION [address] [place] [address] , Generic ConversionMD Social History Tobacco Use [...] (Late Contact Info) Description 08/03/2024 2:00 PM WASTE AND BATTING WASTE CHOPPER Appointment [facility] Services [address] [place] [address] Josué Cook MD [address] [address] documented as of this encounter Visit Diagnoses Not on filedocumented in this encounter Care Teams Traffic Inspector Relationship Specialty Start Date End Date Jared Abrams MD PCP - General 08/28/11 07/16/22 documented as of this encounter
--- OUTSIDE RECORDS SUMMARY | 2024-07-15 19:48 | XMS_ITS | Encounter Summary ---
Author Organization [facility] Address [address] [place] [address] [place] [address] Care Team Providers Care Pearl Hand Name Role Phone Jared Abrams MD Primary Care Provider [phone] Encounter Details Date Type Department Care Team (Late st Contact Info) Description 04/12/2004 Abstract [facility] Conversion , Generic ConversionMD Social History [...] Contact Info) Description 08/03/2024 2:00 PM MEDICAL OPERATIONS SUPERVISOR Appointment [facility] One Day [facility] [address] [place] [address] Josué Cook MD [address] [address] documented as of this encounter Visit Diagnoses Not on filedocumented in this encounter Care Teams Pearl Hand Relationship Specialty Start Date End Date Jared Abrams MD PCP - General 08/28/11 07/16/22 documented as of this encounter
--- OUTSIDE RECORDS SUMMARY | 2024-07-15 19:48 | XMS_ITS | Encounter Summary ---
Author Organization [facility] Address [address] [place] [address] [place] [address] Care Team Providers Care Plastic Bubble Packer Name Role Phone Jared Abrams MD Primary Care Provider [phone] Encounter Details Date Type Department Care Team (Late st Contact Info) Description 08/08/2005 Abstract [facility] Conversion , Generic ConversionMD Social [...] st Contact Info) Description 08/03/2024 2:00 PM ADULT FAMILY HOME PROGRAM MANAGER Appointment [facility] One Day [facility] [address] [place] [address] Josué Cook MD [address] [address] documented as of this encounter Visit Diagnoses Not on filedocumented in this encounter Care Teams Plastic Bubble Packer Relationship Specialty Start Date End Date Jared Abrams MD PCP - General 08/28/11 07/16/22 documented as of this encounter
--- OUTSIDE RECORDS SUMMARY | 2024-07-15 19:48 | XMS_ITS | Encounter Summary ---
Author Organization [facility] Address [address] [facility] [place] [address] [place] [address] Care Team Providers Care Chip Tuner Name Role Phone Jared Abrams MD Primary Care Provider [phone] Encounter Details Date Type Department Care Team (Late Contact Info) Description 10/27/2003 Abstract [facility] CONVERSION 9515 [place] [address] , Generic Conversion, Social History Tobacco Use [...] (Late Contact Info) Description 08/03/2024 2:00 PM FOOD SERVICE DRIVER Appointment [facility] [address] [place] [address] Josué Cook MD [address] [address] documented as of this encounter Visit Diagnoses Not on filedocumented in this encounter Care Teams Chip Tuner Relationship Specialty Start Date End Date Jared Abrams MD PCP - General 08/28/11 07/16/22 documented as of this encounter
--- OUTSIDE RECORDS SUMMARY | 2024-07-15 19:48 | XMS_ITS | Encounter Summary ---
Author Organization [facility] Address [address] [facility] [place] [address] [place] [address] Care Team Providers Care Rebeamer Name Role Phone Jared Abrams MD Primary Care Provider [phone] Encounter Details Date Type Department Care Team (Late Contact Info) Description 05/29/[address] [facility] CONVERSION [address] [facility] [place] [address] Scar Diaz MD [address] [place] [phone] Social History Tobacco Use Types Packs/Day Years [...] (Late Contact Info) Description 08/03/2024 2:00 PM LABORER SHAFT SINKING Appointment [facility] One Day Services [address] [place] [address] Josué Cook MD [address] [place] [address] 8 [place] [address] documented as of this encounter Visit Diagnoses Not on filedocumented in this encounter Care Teams Rebeamer Relationship Specialty Start Date End Date Jared Abrams MD PCP - General 08/28/11 07/16/22 documented as of this encounter
--- OUTSIDE RECORDS SUMMARY | 2024-07-15 19:48 | XMS_ITS | Encounter Summary ---
Author Organization [facility] Address [address] [place] [address] [place] [address] Care Team Providers Care Skid Man Name Role Phone Jared Abrams MD Primary Care Provider [phone] Encounter Details Date Type Department Care Team (Late Contact Info) Description 07/26/2005 Abstract [facility] CONVERSION [address] [place] [address] Jared Abrams MD 1212 [place] [address] Social History Tobacco Use Types Packs/Day Years [...] (Late Contact Info) Description 08/03/2024 2:00 PM PLANT TAXONOMY TEACHER Appointment [facility] One Day Services [address] [place] [address] Josué Cook MD [address] [place] [address] documented as of this encounter Visit Diagnoses Not on filedocumented in this encounter Care Teams Skid Man Relationship Specialty Start Date End Date Jared Abrams MD PCP - General 08/28/11 07/16/22 documented as of this encounter
--- OUTSIDE RECORDS SUMMARY | 2024-07-15 19:48 | XMS_ITS | Encounter Summary ---
Author Organization [facility] Address [address] [facility] [place] [address] [place] [address] Care Team Providers Care Precision Agriculture Technician Name Role Phone Jared Abrams MD Primary Care Provider [phone] Encounter Details Date Type Department Care Team (Late Contact Info) Description 06/14/2004 Abstract [facility] CONVERSION 9515 [place] [address] Scar Diaz MD [address] [place] [address] Social History Tobacco Use Types Packs/Day Years [...] (Late Contact Info) Description 08/03/2024 2:00 PM CUSTOMER SUPPORT COORDINATOR Appointment [facility] Day [facility] [address] [place], [place] [phone] Josué Cook MD 49[address] [facility] 8 [place] [address] documented as of this encounter Visit Diagnoses Not on filedocumented in this encounter Care Teams Precision Agriculture Technician Relationship Specialty Start Date End Date Jared Abrams MD PCP - General 08/28/11 07/16/22 documented as of this encounter
--- OUTSIDE RECORDS SUMMARY | 2024-07-15 19:49 | XMS_ITS | Encounter Summary ---
Author Organization [facility] Address [address] [facility] [place] [address] [place] [address] Care Team Providers Care Talk Show Host Name Role Phone Jared Abrams MD Primary Care Provider [phone] Encounter Details Date Type Department Care Team (Late Contact Info) Description 08/20/2001 Abstract [facility] CONVERSION [address] [place] [address] , Generic ConversionMD Social History Tobacco Use [...] (Late Contact Info) Description 08/03/2024 2:00 PM OUTSIDE MEDICAL SALES REPRESENTATIVE Appointment [facility] Services [address] [place] [address] Josué Cook MD [address] [address] documented as of this encounter Visit Diagnoses Not on filedocumented in this encounter Care Teams Talk Show Host Relationship Specialty Start Date End Date Jared Abrams MD PCP - General 08/28/11 07/16/22 documented as of this encounter
--- OUTSIDE RECORDS SUMMARY | 2024-07-15 19:49 | XMS_ITS | Encounter Summary ---
Author Organization [facility] Address [address] [facility] [place] [address] [place] [address] Care Team Providers Care Striker Out Name Role Phone Jared Abrams MD Primary Care Provider [phone] Encounter Details Date Type Department Care Team (Late Contact Info) Description 06/09/2000 Abstract [facility] CONVERSION [address] [place] [address] , Generic ConversionMD Social History Tobacco Use [...] (Late Contact Info) Description 08/03/2024 2:00 PM KNOCKDOWN WORKER Appointment [facility] Services [address] [place] [address] Josué Cook MD [address] [address] documented as of this encounter Visit Diagnoses Not on filedocumented in this encounter Care Teams Striker Out Relationship Specialty Start Date End Date Jared Abrams MD PCP - General 08/28/11 07/16/22 documented as of this encounter
--- OUTSIDE RECORDS SUMMARY | 2024-07-15 19:49 | XMS_ITS | Encounter Summary ---
Author Organization [facility] Address [address] [facility] [place] [address] [place] [address] Care Team Providers Care Inspector Eyeglass Name Role Phone Jared Abrams MD Primary Care Provider [phone] Encounter Details Date Type Department Care Team (Late Contact Info) Description 08/18/2001 Abstract [facility] CONVERSION [address] [place] [address] , Generic ConversionMD Social History Tobacco Use [...] (Late Contact Info) Description 08/03/2024 2:00 PM POWER PLANT INSTALLER Appointment [facility] Services [address] [place] [address] Josué Cook MD [address] [address] documented as of this encounter Visit Diagnoses Not on filedocumented in this encounter Care Teams Inspector Eyeglass Relationship Specialty Start Date End Date Jared Abrams MD PCP - General 08/28/11 07/16/22 documented as of this encounter
--- OUTSIDE RECORDS SUMMARY | 2024-07-15 19:49 | XMS_ITS | Encounter Summary ---
Author Organization [facility] Address [address] [place] [address] [place] [address] Care Team Providers Care Earth Science Professor Name Role Phone Jared Abrams MD Primary Care Provider [phone] Encounter Details Date Type Department Care Team (Late Contact Info) Description 05/29/1998 Abstract [facility] CONVERSION [address] [place] [address] , Generic ConversionMD Social History Tobacco Use [...] (Late Contact Info) Description 08/03/2024 2:00 PM CHARTER REPRESENTATIVE Appointment [facility] Services [address] [place] [address] Josué Cook MD [address] [address] documented as of this encounter Visit Diagnoses Not on filedocumented in this encounter Care Teams Earth Science Professor Relationship Specialty Start Date End Date Jared Abrams MD PCP - General 08/28/11 07/16/22 documented as of this encounter
--- OUTSIDE RECORDS SUMMARY | 2024-07-15 19:49 | XMS_ITS | Encounter Summary ---
Author Organization [facility] Address [address] [place] [address] [place] [address] Care Team Providers Care Planer Setup Operator Name Role Phone Jared Abrams MD Primary Care Provider [phone] Encounter Details Date Type Department Care Team (Late Contact Info) Description 05/20/[address] [facility] CONVERSION [address] [place] [address] , Generic MD Yvonne Social History Tobacco [...] (Late Contact Info) Description 08/03/2024 2:00 PM HEDIS ANALYST Appointment [facility] Services [address] [place] [address] Josué Cook MD [address] [address] documented as of this encounter Visit Diagnoses Not on filedocumented in this encounter Care Teams Planer Setup Operator Relationship Specialty Start Date End Date Jared Abrams MD PCP - General 08/28/11 07/16/22 documented as of this encounter
--- OUTSIDE RECORDS SUMMARY | 2024-07-15 19:49 | XMS_ITS | Encounter Summary ---
Author Organization [facility] Address [address] [facility] [place] [address] [place] [address] Care Team Providers Care Gis Database Administrator Name Role Phone Jared Abrams MD Primary Care Provider [phone] Encounter Details Date Type Department Care Team (Late Contact Info) Description 07/26/1998 Abstract [facility] CONVERSION [address] [place] [address] , Generic Conversion, Social History Tobacco Use [...] (Late Contact Info) Description 08/03/2024 2:00 PM ASSISTED LIVING CARE MANAGER Appointment [facility] [address] [place] [address] Josué Cook MD [address] [address] documented as of this encounter Visit Diagnoses Not on filedocumented in this encounter Care Teams Gis Database Administrator Relationship Specialty Start Date End Date Jared Abrams MD PCP - General 08/28/11 07/16/22 documented as of this encounter
--- OUTSIDE RECORDS SUMMARY | 2024-07-15 19:49 | XMS_ITS | Encounter Summary ---
Author Organization [facility] Address [address] [place] [address] [place] [address] Care Team Providers Care Electronics Assembler And Tester Name Role Phone Jared Abrams MD Primary Care Provider [phone] Encounter Details Date Type Department Care Team (Late Contact Info) Description 05/11/1996 Abstract [facility] CONVERSION [address] [place] [address] , Generic ConversionMD Social History Tobacco Use [...] (Late Contact Info) Description 08/03/2024 2:00 PM TICKET BROKER Appointment [facility] Services [address] [place] [address] Josué Cook MD [address] [address] documented as of this encounter Visit Diagnoses Not on filedocumented in this encounter Care Teams Electronics Assembler And Tester Relationship Specialty Start Date End Date Jared Abrams MD PCP - General 08/28/11 07/16/22 documented as of this encounter
--- OUTSIDE RECORDS SUMMARY | 2024-07-15 19:49 | XMS_ITS | Encounter Summary ---
Author Organization [facility] Address [address] [facility] [place] [address] [place] [address] Care Team Providers Care Oracle Forms Developer Name Role Phone Jared Abrams MD Primary Care Provider [phone] Encounter Details Date Type Department Care Team (Late Contact Info) Description 08/19/2000 Abstract [facility] CONVERSION [address] [place] [address] , Generic Conversion, Social History Tobacco Use [...] (Late Contact Info) Description 08/03/2024 2:00 PM PLAYER SERVICES REPRESENTATIVE Appointment [facility] [address] [place] [address] Josué Cook MD [address] [address] documented as of this encounter Visit Diagnoses Not on filedocumented in this encounter Care Teams Oracle Forms Developer Relationship Specialty Start Date End Date Jared Abrasm MD PCP - General 08/28/11 07/16/22 documented as of this encounter
--- OUTSIDE RECORDS SUMMARY | 2024-07-15 19:49 | XMS_ITS | Encounter Summary ---
Author Organization [facility] Address [address] [place] [address] [place] [address] Care Team Providers Care Industrial Sales Representative Name Role Phone Jared Abrams MD Primary Care Provider [phone] Encounter Details Date Type Department Care Team (Late Contact Info) Description 05/09/2000 Abstract [facility] CONVERSION [address] [place] [address] , Generic ConversionMD Social History Tobacco Use [...] (Late Contact Info) Description 08/03/2024 2:00 PM RESIDENT INSPECTOR Appointment [facility] Services [address] [place] [address] Josué Cook MD [address] [address] documented as of this encounter Visit Diagnoses Not on filedocumented in this encounter Care Teams Industrial Sales Representative Relationship Specialty Start Date End Date Jared Abrams MD PCP - General 08/28/11 07/16/22 documented as of this encounter
--- OUTSIDE RECORDS SUMMARY | 2024-07-15 19:49 | XMS_ITS | Encounter Summary ---
Author Organization [facility] Address [address] [facility] [place] [address] [place] [address] Care Team Providers Care Utility Manager Name Role Phone Jared Abrams MD Primary Care Provider [phone] Encounter Details Date Type Department Care Team (Late Contact Info) Description 06/05/[address] [facility] CONVERSION [address] [place] [address] , Generic ConversionMD Social History Tobacco Use [...] Info) Description 08/03/2024 2:00 PM DIRECTOR OF TEACHER EDUCATION Appointment [facility] Services [address] [place] [address] Josué Cook MD [address] [address] documented as of this encounter Visit Diagnoses Not on filedocumented in this encounter Care Teams Utility Manager Relationship Specialty Start Date End Date Jared Abrams MD PCP - General 08/28/11 07/16/22 documented as of this encounter
--- OUTSIDE RECORDS SUMMARY | 2024-07-15 19:49 | XMS_ITS | Encounter Summary ---
Author Organization [facility] Address [address] [facility] [place] [address] [place] [address] Care Team Providers Care Landscape Specialist Name Role Phone Jared Abrams MD Primary Care Provider [phone] Encounter Details Date Type Department Care Team (Late Contact Info) Description 08/04/1999 Abstract [facility] CONVERSION [address] [place] [address] , Generic Conversion, Social History Tobacco Use [...] (Late Contact Info) Description 08/03/2024 2:00 PM EXPLOSION WELDER Appointment [facility] [address] [place] [address] Josué Cook MD [address] [address] documented as of this encounter Visit Diagnoses Not on filedocumented in this encounter Care Teams Landscape Specialist Relationship Specialty Start Date End Date Jared Abrams MD PCP - General 08/28/11 07/16/22 documented as of this encounter
--- OUTSIDE RECORDS SUMMARY | 2024-07-15 19:49 | XMS_ITS | Encounter Summary ---
Author Organization [facility] Address [address] [facility] [place] [address] [place] [address] Care Team Providers Care Aircraft Restorer Name Role Phone Jared Abrams MD Primary Care Provider [phone] Encounter Details Date Type Department Care Team (Late Contact Info) Description 01/21/1995 Abstract [facility] CONVERSION [address] [place] [address] , Generic ConversionMD Social History Tobacco Use [...] (Late Contact Info) Description 08/03/2024 2:00 PM GRIEF COUNSELOR Appointment [facility] Services [address] [place] [address] Josué Cook MD [address] [address] documented as of this encounter Visit Diagnoses Not on filedocumented in this encounter Care Teams Aircraft Restorer Relationship Specialty Start Date End Date Jared Abrams MD PCP - General 08/28/11 07/16/22 documented as of this encounter
--- OUTSIDE RECORDS SUMMARY | 2024-07-15 19:49 | XMS_ITS | Encounter Summary ---
Author Organization [facility] Address [address] [facility] [place] [address] [place] [address] Care Team Providers Care Butcher Or Smallgoods Maker Name Role Phone Jared Abrams MD Primary Care Provider [phone] Encounter Details Date Type Department Care Team (Late Contact Info) Description 12/10/1993 Abstract [facility] CONVERSION [address] [place] [address] , Generic ConversionMD Social History Tobacco Use [...] Contact Info) Description 08/03/2024 2:00 PM TOOL MACHINE SHOP SUPERVISOR Appointment [facility] Services [address] [place] [address] Josué Cook MD [address] [address] documented as of this encounter Visit Diagnoses Not on filedocumented in this encounter Care Teams Butcher Or Smallgoods Maker Relationship Specialty Start Date End Date Jared Abrams MD PCP - General 08/28/11 07/16/22 documented as of this encounter
--- OUTSIDE RECORDS SUMMARY | 2024-07-15 19:55 | XMS_ITS | Encounter Summary ---
Author Organization [facility] Address [address] [place] [address] Phone Care Team Providers Care Telephone Interviewer Name Role Phone Servando Torre MD Primary Care Provider [phone] Mariela Denton MD Unavailable [phone] Lexis Barroso OD Unavailable [phone] Reason for Visit * Reason Onset Date Comments Medication Problem 07/09/2024 Request For Order(s) 07/09/2024 Encounter Details Date Type Department Care Team (Late st Contact Info) Description 07/09/2024 Telephone [facility] Epilepsy [address] [facility] 6th [place] [address] [place] [address] Adria Burleson MD [address] [facility] [facility] [address] [place] [address] Medication Problem; Request For Order(s) [...] on file Legal Sex Female 9:30 AM DEBONER Gender Identity Female 04/05/2022 6:17 PM CDT Sexual Orientation Straight 04/05/2022 6: 17 PM CDT documented as of this encounter Miscellaneous Notes * Telephone Encounter - Jenny Parra CMA - 07/09/2024 8:28 AM CST Patients family was notified of no change with LTG dosing at this time. [facility] is communicating with patients family to get lab order sent to appropriate lab. Jenny NER * Telephone Encounter - Jenny Parra CMA - 07/09/2024 8:28 AM CST ----- Message from Adria Diop MD sent at 07/08/2024 4:24 PM DEBONER ----- Thanks for the update From an epilepsy standpoint, I would prefer to keep her on LTG 200 mg bid It's reassuring she's seizure-free We can get a trough LTG level to make sure levels are WNL TY f ----- Message ----- From: Chelsie Francisco NP Sent: 07/08/2024 4:16 PM DEBONER To: Kimberly Nicolas MD; # Hi Dr. [...] sedation, worsening cognition and falls. Seen at [facility] for falls in ED, she had blood [...] happy to contact dtr. Thank you, Amara NER documented in this encounter Plan of Treatment Not on file documented as of this encounter Visit Diagnoses Not on filedocumented in this encounter Care Teams Telephone Interviewer Relationship Specialty Start Date End Date Servando Torre MD [address] [address] PCP - General Family Medicine 06/19/22 Mariela Denton MD [address] [place] [address] Referring Physician Gastroenterology 06/19/22 Lexis Barroso OD [address] [place] [id number] At Risk Paraprofessional 09/19/22 documented as of this encounter
--- OUTSIDE RECORDS SUMMARY | 2024-07-15 19:55 | XMS_ITS | Clinical Summary ---
Author Organization [facility] Address [address] [place] [address] Care Team Providers Care Fish Culturist Name Role Phone Servando Torre MD Primary Care Provider Mariela Denton MD Unavailable [phone] Lexis Barroso OD Unavailable +1- [phone] Allergies Active Allergy Reactions Criticality Noted Date [...] [facility] ([facility] order in [facility] under 'Procedures' tab). 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 long-term (current) use of oral hypoglycemic fuentes gs [...] 05/29 Assessment & Plan (07/05/2024 3:20 PM TRACK CAR OPERATOR): A(n) yearly Medicare Annual Wellness Visit has [...] months Assessment & Plan (06/26/2023 2:02 PM TRACK CAR OPERATOR): A(n) yearly Medicare Annual Wellness Visit has [...] months Assessment & Plan (06/23/2022 3:06 PM TRACK CAR OPERATOR): A(n) initial Medicare Annual Wellness Visit has [...] (06/19/2022): Added automatically from request for surgery [id number] Ear ringing 03/03/2013 Asymmetrical sensorineural hearing loss 03/03/20 13 Stress fracture 07/07/2012 Arthralgia of hip 02/06/2011 Resolved Problems Problem Noted Date Diagnosed Date Resolved Date Hospital discharge follow-up 06/11/2023 08/07/2023 Assessment & Plan (06/11/2023 1:42 PM TRACK CAR OPERATOR): I have reviewed the hospital record, medications, [...] Type Department Care Team Description 07/14/2024 Telephone [facility] Primary Care at [address] [phone] Results 07/12/2024 Orders Only [address] [place] [address] Chelsie Francisco NP 07/12/2024 Orders Only [facility] Primary Care at [address] [phone] Marcell Rucker MD 07/09/2024 Telephone [facility] [address] [facility] 6th [place] [address] [place] [address] Adria Burleson MD Medication Problem; Request For Order(s) 07/08/2024 3:15 PM TRACK CAR OPERATOR Office Visit [address] 6th Floor [address] [place] [phone] Chelsie Francisco NP Somnolence, daytime (Primary Dx); Memory impairment; Frequent falls; Anxiety 07/05/2024 3:00 PM TRACK CAR OPERATOR Office Visit [facility] Primary Care at [address] [phone] Servando Torre MD Encounter for Medicare annual wellness exam (Primary Dx); Mixed diabetic hyperlipidemia associated with type 2 diabetes mellitus (HCC); Hypertension associated with diabetes (HCC); Gastroesophageal reflux disease without esophagitis; At risk for falls; Carotid stenosis, asymptomatic, bilateral 07/02/2024 10:20 AM TRACK CAR OPERATOR - 07/02/2024 11:59 PM TRACK CAR OPERATOR Hospital Encounter [address] [address] Hypertension associated with diabetes ([facility]); Seizure ([facility]); Weakness generalized Discharge Disposition: Discharge to home or self care 07/02/2024 10:15 AM TRACK CAR OPERATOR Lab [facility] Outpatient Lab at [address] [address] Encounter for Medicare annual wellness exam (Primary Dx) 06/29/2024 Orders Only [facility] [address] [facility] 6th Floor [address] [place] [phone] Kimberly Nicolas MD Weakness generalized (Primary Dx) 06/18/2024 3:00 PM TRACK CAR OPERATOR Ancillary Procedure [facility] Imaging at [address] [phone] Accidental fall, subsequent encounter 06/18/2024 2:55 PM TRACK CAR OPERATOR Ancillary Procedure [facility] Imaging at [address] [phone] Accidental fall, subsequent encounter 06/18/2024 2:30 PM TRACK CAR OPERATOR Office Visit [facility] at [address] [phone] Pricilla Olguin NP Accidental fall, subsequent encounter (Primary Dx) 05/28/2024 Telephone [facility] Primary Care at [address] [phone] Servando Torre MD Medical Question/Miscellaneisaak s 05/19/2024 4:30 PM CDT Office Visit [facility] [address] [place] [address] Floor [address] [place] [phone] Kimberly Nicolas MD Vascular dementia without behavioral disturbance (HCC) (Primary Dx) 05/18/2024 Orders Only [facility] [address] [place] [address] [address] [place] [phone] Ayala Mobley RN Chronic ulcerative colitis, unspecified complication (HCC) (Primary Dx); High risk medications (not anticoagulants) long-term use; Healthcare maintenance; Encounter for screening for other viral diseases 05/15/2024 Telephone [facility] at [address] [phone] Pricilla Olguin NP 05/13/2024 12:25 PM CDT Ancillary Procedure [facility] Imaging at [address] [phone] Fall, initial encounter 05/13/2024 12:00 PM CDT Office Visit [facility] at [address] [phone] Mara Almendarez NP Fall, initial encounter (Primary Dx); Acute pain of right knee 05/12/2024 Nurse Triage [facility] Primary Care at [address] [phone] Servando Torre MD 05/05/2024 3:45 PM CDT Office Visit [facility] [address] [place] [address] [place] [address] [place] [phone] Josué Cook MD Chronic ulcerative colitis, unspecified complication (HCC) (Primary Dx) 05/05/2024 9:30 AM CDT Office Visit [facility] Epilepsy [facility] 6th Floor [address] [place] [phone] Adria Burleson MD Localization-related symptomatic epilepsy and epileptic syndromes with complex partial seizures, not intractable, without status epilepticus (HCC) (Primary Dx) 04/27/2024 11:52 AM CDT - 04/27/2024 11:59 PM CDT Hospital Encounter [address] [address] Localization-related symptomatic epilepsy and epileptic syndromes with complex partial seizures, not intractable, without status epilepticus (HCC) Discharge Disposition: Discharge to home or self care 04/27/2024 11:45 AM CDT Lab [facility] Outpatient Lab at [address] [phone] 04/23/2024 Telephone [facility] Primary Care at [address] [phone] Servando Torre MD Medical Question/Miscellaneou [...] file Legal Sex Female 9:30 AM TRACK CAR OPERATOR Gender Identity Female 04/05/2022 6:17 PM CDT Sexual Orientation Straight 04/05/2022 6: 17 PM CDT Obstetrics History Last Filed Vital Signs Vital Sign Reading Time Taken Comments Blood Pressure 129/77 07/08/2024 3:11 PM TRACK CAR OPERATOR Pulse 72 07/08/2024 3:11 PM TRACK CAR OPERATOR Temperature 36.8 ??C (98.2 ??F) 07/08/2024 3:11 PM CS T Respiratory Rate 18 07/05/2024 3:02 PM TRACK CAR OPERATOR Oxygen Saturation 98% 07/08/2024 3:11 PM TRACK CAR OPERATOR Inhaled Oxygen Concentration - - Weight 65.8 kg (145 lb) 07/08/2024 3:11 PM TRACK CAR OPERATOR Height 157.5 cm (5' 2 ) 07/08/2024 3:11 PM TRACK CAR OPERATOR Body Mass Index 26.52 07/08/2024 3:11 PM TRACK CAR OPERATOR Plan of Treatment Health Maintenance Due Date [...] Read Routine (OP Routine) 07/11/2024 9:14 AM TRACK CAR OPERATOR URINALYSIS, MICROSCOPIC ONLY Routine 07/02/2024 10:20 AM TRACK CAR OPERATOR Weakness generalized EGFR Routine 07/02/2024 10:20 AM TRACK CAR OPERATOR Weakness generalized DIFFERENTIAL AUTO Routine 07/02/2024 10: 20 AM TRACK CAR OPERATOR Weakness generalized CBC WITH AUTO DIFFERENTIAL Routine 07/02/2024 10:20 AM TRACK CAR OPERATOR Weakness generalized COMPREHENSIVE METABOLIC PANEL Routine 07/02/2024 10:20 AM TRACK CAR OPERATOR Weakness generalized ALBUMIN CREATININE RATIO, URINE Routine 07/02/2024 10:20 AM TRACK CAR OPERATOR Hypertension associated with diabetes (HCC) HEMOGLOBIN A1C Routine 07/02/2024 10:20 AM TRACK CAR OPERATOR Hypertension associated with diabetes (HCC) LAMOTRIGINE LEVEL Routine 07/02/2024 10: 20 AM TRACK CAR OPERATOR Seizure (HCC) LIPID PANEL Routine 07/02/2024 10:20 AM TRACK CAR OPERATOR Hypertension associated with diabetes (HCC) URINALYSIS AND REFLEX TO MICROSCOPIC AND CULTURE Routine 07/02/2024 10:20 AM TRACK CAR OPERATOR Weakness generalized XR SPINE LUMBAR 2 OR 3 VIEWS Schedule SHIRA, Read SHIRA (Appt Today, Awaiting Results) 06/18/2024 3:04 PM TRACK CAR OPERATOR Accidental fall, subsequent encounter XR HIP LEFT 2 OR 3 VIEWS Schedule SHIRA, Read SHIRA (Appt Today, Awaiting Results) 06/18/2024 3:04 PM TRACK CAR OPERATOR Accidental fall, subsequent encounter XR KNEE RIGHT [...] TOMOGRAPHY (CT) WITHOUT CONTRAST (07/11/2024 9:14 AM TRACK CAR OPERATOR) Anatomical Region Laterality Modality N/A Computed Tomogra phy us Marcell Rucker MD IMG CT PROCEDURES Final Result * eGFR (07/02/2024 10:20 AM TRACK CAR OPERATOR) eGFR 66 >=60 mL/min/1. 73 m2 Comment: [...] reviewed 2021. Blood 07/02/2024 10:2 0 AM TRACK CAR OPERATOR 07/02/2024 5:35 PM TRACK CAR OPERATOR us Kimberly Nicolas MD LAB BLOOD ORDERABLES Final Resu lt Performing Organization Address City/State/ZIP Co hi Phone Number AILE[facility] [phone] [address] Department [place] [address] * Differential, auto (07/02/2024 10:20 AM TRACK CAR OPERATOR) Neutrophil abs 5.1 1.5 - 6.5 K/cumm [...] on 2017. Blood 07/02/2024 10:2 0 AM TRACK CAR OPERATOR 07/02/2024 5:00 PM TRACK CAR OPERATOR us Kimberly Nicolas MD LAB BLOOD ORDERABLES Final Resu lt [facility] [address] Department [place] [address] * (ABNORMAL) Urinalysis reflex to microscopic and culture Urine, clean voided (07/02/2024 10:20 AM TRACK CAR OPERATOR) Color, ur Yellow Yellow Clarity, ur Clear [...] tendency for uric acid stone formation. Source: [facility] Brandtology Current Interpretive Data was last revised on [...] Reflex to microscopic UA will be performed. [facility] Urine, clean voided 07/02/2024 10:20 AM TRACK CAR OPERATOR 07/02/2024 5:00 PM TRACK CAR OPERATOR us Kimberly Nicolas MD LAB MICROBIOLOGY - GENERAL ORDE RABLES Final Result [facility] [address] [address] Department [place] [address] * (ABNORMAL) CBC with auto differential (07/02/2024 10:20 AM TRACK CAR OPERATOR) WBC 7.4 3.8 - 9.9 K/cumm Hgb 13.3 11.9 - 15.5 g/dL [facility] Hct 44.2 35.6 - 45.5 % [facility] Plt 296 150 - 400 K/cumm [facility] MPV 9.4 9.1 - 12.3 fL [facility] RBC 4.79 3.90 - 5.20 M/cumm [facility] MCV 92.3 81.3 - 96.4 fL [facility] MCH 27.8 27.1 - 33.3 pg [facility] MCHC 30.1(L) 32.3 - 35.7 g/dL [facility] CH RDW CV 13.0 11.1 - 14.9 % [facility] RDW SD 43.8 35.7 - 48.1 fL [facility] NRBC abs 0.00 0.00 - 0.01 K/cumm [facility] Blood 07/02/2024 10:2 0 AM TRACK CAR OPERATOR 07/02/2024 5:00 PM TRACK CAR OPERATOR us Kimberly Nicolas MD LAB BLOOD ORDERABLES Final Resu lt Performing Organization Address [facility] de Phone Number [facility] [address] [place] [address] * (ABNORMAL) Albumin Creatinine Ratio, Urine (07/02/2024 10:20 AM TRACK CAR OPERATOR) Albumin Ur 45.5 mg/L Comment: Interpretive Data No reference range established. Current interpretive data was last revised 2018. Creatinine Ur 73.7 mg/dL [facility] Comment: Interpretive Data No reference range established. Current interpretive data was last revised 2018. Albumin Creatinine Ratio, Ur 62(H) 1 - 29 mg/g [facility] Urine 07/02/2024 10:2 0 AM TRACK CAR OPERATOR 07/02/2024 5:00 PM TRACK CAR OPERATOR us Servando Torre MD LAB URINE ORDERABLES Final Result Performing Organization Address [facility] Co de Phone Number [facility] [address] [address] Department of [employer]tology [place], [place] [id number] * Lamotrigine level (07/02/2024 10:20 AM TRACK CAR OPERATOR) Lamotrigine 9.6 3.0 - 15.0 mcg/mL [facility] Lab Comment: ADDITIONAL INFORMATION This test was developed and its performance characteristics determined by [facility] in a manner consistent with CLIA requirements. This test has not been cleared or approved by the U.S. Food and Drug Administration. Test Performed by: [facility] Laboratories - [facility] [address] [place] [address] Family Day Care Worker: Liu Davis Ph.D.; CLIA# [id number] Blood 07/02/2024 10:2 0 AM TRACK CAR OPERATOR 07/02/2024 5:00 PM TRACK CAR OPERATOR us Servando Torre MD LAB BLOOD ORDERABLES Final Result Performing Organization Address [facility] de Phone Number [facility] [address] [place] [address] [facility] * (ABNORMAL) Urinalysis, microscopic only (07/02/2024 10:20 AM TRACK CAR OPERATOR) WBC, ur 6-10(A) 0 - 5 /HPF RBC, ur 3-5(A) 0 - 2 /HPF [facility] Epithelial cells, squamous, ur 1-5 0 - 5 /HPF [facility] Mucous, ur Present(A) [facility] Culture Reflex Comment Reflex conditions for urine culture (WBC >10) not met. [facility] Urine, clean voided 07/02/2024 10:20 AM TRACK CAR OPERATOR 07/02/2024 5:00 PM TRACK CAR OPERATOR us Kimberly Nicolas MD LAB URINE ORDERABLES Final Resu lt Performing Organization Address [facility] Co de Phone Number [facility] [address] [place] [address] * (ABNORMAL) Hemoglobin A1c (07/02/2024 10:20 AM TRACK CAR OPERATOR) Hgb A1C 6.4(H) 4.0 - 5.6 % Estimated Average Glucose 137 mg/dL [facility] Comment: The ADA recommends reporting an estimated Average Glucose (eAG) with all Hemoglobin A1c results using the equation derived from a study of 507 normal and diabetic adults. ??Minority populations were underrepresented and children were not included. ?? (Diabetes Care 31:4444-0419, 2008). ??The eAG is not equivalent to a fasting glucose. Blood 07/02/2024 10:2 0 AM TRACK CAR OPERATOR 07/02/2024 5:00 PM TRACK CAR OPERATOR us Servando Torre MD LAB BLOOD ORDERABLES Final Result [facility] [address] Department of Laboratories [place] [id number] * (ABNORMAL) Lipid panel (07/02/2024 10:20 AM TRACK CAR OPERATOR) Pathologist [facility] Cholesterol 190 30 - 199 mg/dL Comment: [...] CERNER CH Blood 07/02/2024 10:2 0 AM TRACK CAR OPERATOR 07/02/2024 5:00 PM TRACK CAR OPERATOR us Servando Torre MD LAB BLOOD ORDERABLES Final Result [facility] [address] [address] Department [place] [address] * (ABNORMAL) Comprehensive metabolic panel (07/02/2024 10:20 AM TRACK CAR OPERATOR) Sodium 141 135 - 145 mmol/L Potassium, [...] [facility]ERNER CH Blood 07/02/2024 10:2 0 AM TRACK CAR OPERATOR 07/02/2024 5:00 PM TRACK CAR OPERATOR us Kimberly Nicolas MD LAB BLOOD ORDERABLES Final Resu lt [facility] [address] Department [place] [address] * XR Spine Lumbar 2 or 3 Views (06/18/2024 3:04 PM TRACK CAR OPERATOR) Anatomical Region Laterality Modality Spine N/A Digital Radiogra phy 06/18/2024 5:05 PM TRACK CAR OPERATOR Narrative 06/18/2024 5:13 PM TRACK CAR OPERATOR EXAM DESCRIPTION: XR HIP LEFT 2 [...] no change from prior CT. There is hohj-rj-ijbbkkds multilevel degenerative endplate change with no acute [...] D: ??06/18/2024 5:13 PM T: Report ID: [id number] Reading Location: ??[id number] Procedure Note Teofilo Rand MD - 06/18/2024 [...] no change from prior CT. There is uitj-uw-ytyajbsj multilevel degenerative endplate change with no acute [...] Teofilo Rand M.D. MJ T: Report ID: [id number] Reading Location: [place] [address] Pricilla Olguin NP IMG XR PROCEDURES Final Result * XR Hip Left 2+ Vw (06/18/2024 3:04 PM TRACK CAR OPERATOR) Anatomical Region Laterality Modality Lower Extremities, Hip, Pelvis Left D igital Radiography 06/18/2024 5:05 PM TRACK CAR OPERATOR Narrative 06/18/2024 5:13 PM TRACK CAR OPERATOR EXAM DESCRIPTION: XR HIP LEFT 2 [...] no change from prior CT. There is vfnz-ew-fsdtbuyq multilevel degenerative endplate change with no acute [...] D: ??06/18/2024 5:13 PM T: Report ID: [id number] Reading Location: ??[id number] Procedure Note Teofilo Rand MD - 06/18/2024 [...] no change from prior CT. There is vfus-dj-ldeqgthk multilevel degenerative endplate change with no acute [...] by Teofilo Rand M.D. T: Report ID: [id number] Reading Location: [place] [address] Pricilla Olguin NP IMG XR PROCEDURES Final [...] D: ??05/13/2024 4:47 PM T: Report ID: [id number] Reading Location: ??[id number] Procedure Note Dylan Zuniga MD - 05/13/2024 [...] signed by Dylan CARROLL T: Report ID: [id number] Reading Location: [id number] Mara Almendarez NP IMG XR PROCEDURES Final Re sult * Lamotrigine level (04/27/2024 11:52 AM CDT) Lamotrigine 6.3 3.0 - 15.0 mcg/mL [facility] Comment: ADDITIONAL INFORMATION This test was developed and its performance characteristics determined by [facility] in a manner consistent with CLIA requirements. This test has not been cleared or approved by the U.S. Food and Drug Administration. Test Performed by: [facility] [address] [place] [address] Family Day Care Worker: Liu Daivs Ph.D.; CLIA# [id number] Blood 04/27/2024 11:5 2 AM CDT 04/27/2024 7:35 PM CDT Adria Diop MD LAB BLOOD OR DERABLES Final Result [facility] [address] [address] Department [place] [address] [facility] * Diabetic Eye Exam (06/25/2023) Historical Provider HEALTH MAINTENANCE Final Result * Dexa Axial Skeleton Bone Density 1 or 2 Site (12/12/2022 2:33 PM CDT) Anatomical Region Laterality Modality Body N/A Radiographic Keyanna ging Narrative 12/12/2022 3:00 PM CDT Patient Name: Lisa Allen Date of : 1945 Date of scan: 12/12/2022 Bone mineral density was performed on a [employer] Discovery Densitometer. ?? Based on machine cross-calibration [...] by the International Society of Clinical Densitometry. [id number] Servando Torre MD IMG DXA PROCEDURES Final Re sult from Last 3 Months or Most Recently Relevant to Health Maintenance Insurance MEDICARE [facility] MEDICARE SUPPLEMENT MEDICARE [employer] MEDICARE SUPPLEMENT MEDICARE [facility] MEDICARE [facility] Advance Directives For more information, please contact: [phone] * Full Code (Latest Code Status on File) Date Activated Date Inactivated Comments 11/29/2022 9:30 AM 11/29/2022 3:28 PM Care Teams Fish Culturist Relationship Specialty Start Date End Date Servando Torre MD [address] [facility] [address] [place] [address] PCP - General Family Medicine 06/19/22 Mariela Denton MD [facility] [address] [place] [address] Referring Physician Gastroenterology 06/19/22 Lexis Barroso OD [address] [address] Gis Geographer 09/19/22
--- OUTSIDE RECORDS SUMMARY | 2024-07-15 19:55 | XMS_ITS | Encounter Summary ---
Author Organization [facility] Address [address] [place] [address] Phone Care Team Providers Care Filling Mixer Name Role Phone Servando Torre MD Primary Care Provider [phone] Mariela Denton MD Unavailable + -[phone] Lexis Barroso OD Unavailable +- [phone] Encounter Details Date Type Department Care Team (Late st Contact Info) Description 07/12/2024 Orders Only [facility] [address] [facility] 6th Floor [address] [place] [address] Chelsie Francisco NP [address] [place] [address] Social History Tobacco Use Types Packs/Day Years [...] on file Legal Sex Female 9:30 AM DOBBY LOOM CHAIN PEGGER Gender Identity Female 04/05/2022 6:17 PM CDT [...] filedocumented in this encounter Care Teams Filling Mixer Relationship Specialty Start Date End Date Servando Torre MD [address] [address] PCP - General Family Medicine 06/19/22 Mariela Denton MD [address] [place] [address] Referring Physician Gastroenterology 06/19/22 Lexis Barroso OD [address] [place] [address] Land Surveying Party Chief 09/19/22 documented as of this encounter
--- OUTSIDE RECORDS SUMMARY | 2024-07-15 19:55 | XMS_ITS | Referral Summary ---
Author Organization [facility] Address [address] [place] [address] Care Team Providers Care Tarp Repairer Name Role Phone Servando Torre MD Primary Care Provider [phone] Mariela Denton MD Unavailable [phone] Lexis Barroso OD Unavailable [phone] Encounters Date Type Department Care Team Description 07/14/[address] [facility] Medical Group Primary Care at [address] [address] Results 07/12/2024 Orders Only [facility] [address] [place] [phone] Chelsie Francisco NP 07/12/[address] [facility] Medical Group Primary Care at [address] [address] Marcell Rucker MD 07/09/2024 Telephone [facility] Epilepsy [address] [facility] 6th [place] [address] [place] [address] Adria Burleson MD Medication Problem; Request For Order(s) 07/08/2024 3:15 PM REMOTE MORTGAGE UNDERWRITER Office Visit [facility] [address] [place] [address] Chelsie Francisco NP Somnolence, daytime (Primary Dx); Memory impairment; Frequent falls; Anxiety 07/05/2024 3:00 PM REMOTE MORTGAGE UNDERWRITER Office Visit [facility] Group Primary Care at [address] [phone] Servando Torre MD Encounter for Medicare annual wellness exam (Primary Dx); Mixed diabetic hyperlipidemia associated with type 2 diabetes mellitus (HCC); Hypertension associated with diabetes (HCC); Gastroesophageal reflux disease without esophagitis; At risk for falls; Carotid stenosis, asymptomatic, bilateral 07/02/2024 10:20 AM REMOTE MORTGAGE UNDERWRITER - 07/02/2024 11:59 PM REMOTE MORTGAGE UNDERWRITER Hospital Encounter [address] [address] Hypertension associated with diabetes ([facility]); Seizure ([facility]); Weakness generalized Discharge Disposition: Discharge to home or self care 07/02/2024 10:15 AM REMOTE MORTGAGE UNDERWRITER Lab [facility] Outpatient Lab at [address] [address] Encounter for Medicare annual wellness exam (Primary Dx) 06/29/2024 Orders Only [facility] [address] [facility] 6th Floor [address] [place] [phone] Kimberly Nicolas MD Weakness generalized (Primary Dx) 06/18/2024 3:00 PM REMOTE MORTGAGE UNDERWRITER Ancillary Procedure [facility] Medical Group Imaging at [address] [address] Accidental fall, subsequent encounter 06/18/2024 2:55 PM REMOTE MORTGAGE UNDERWRITER Ancillary Procedure [facility] Group Imaging at [address] [phone] Accidental fall, subsequent encounter 06/18/2024 2:30 PM REMOTE MORTGAGE UNDERWRITER Office Visit [facility] Convenient Care at [address] [address] Pricilla Olguin NP Accidental fall, subsequent encounter (Primary Dx) 05/28/2024 Telephone [facility] Primary Care at [address] [address] Servando Torre MD Medical Question/Miscellaneisaak s 05/19/2024 4:30 PM CDT Office Visit [facility] [address] [facility] 6th [place] [address] [place] [phone] Kimberly Nicolas MD Vascular dementia without behavioral disturbance (HCC) (Primary Dx) 05/18/2024 Orders Only [facility] Gastroenterology [facility] 12th [place] [address] [place] [phone] Ayala Mobley RN Chronic ulcerative colitis, unspecified complication (HCC) (Primary Dx); High risk medications (not anticoagulants) long-term use; Healthcare maintenance; Encounter for screening for other viral diseases 05/15/[address] [facility] Medical Group Convenient Care at [address] [address] Pricilla Olguin NP 05/13/2024 12:25 PM CDT Ancillary Procedure [facility] Medical [facility] Imaging at [address] [address] Fall, initial encounter 05/13/2024 12:00 PM CDT Office Visit [facility] Convenient Care at [address] [phone] Mara Almendarez NP Fall, initial encounter (Primary Dx); Acute pain of right knee 05/12/[address] [facility] Medical [facility] Primary Care at [address] [phone] Servando Torre MD 05/05/2024 9:30 AM CDT Office Visit [facility] Epilepsy [address] [facility] 6th [place] [address] [place] [phone] Adria Burleson MD Localization-related symptomatic epilepsy and epileptic syndromes with complex partial seizures, not intractable, without status epilepticus (HCC) (Primary Dx) 05/05/2024 3:45 PM CDT Office Visit [facility] Gastroenterology [facility] 12th [place] [address] [place] [phone] Josué Cook MD Chronic ulcerative colitis, unspecified complication (HCC) (Primary Dx) 04/27/2024 11:52 AM CDT - 04/27/2024 11:59 PM CDT Hospital Encounter [place] [id number] [place] [address] Localization-related symptomatic epilepsy and epileptic syndromes with complex partial seizures, not intractable, without status epilepticus (HCC) Discharge Disposition: Discharge to home or self care 04/27/2024 11:[address] [facility] Medical Group Outpatient Lab at [address] [address] 04/23/[address] [facility] Medical Group Primary Care at [address] [phone] Servando Torre MD Medical Question/Miscellaneou [...] Man [facility] order in [facility] under 'Procedures' tab). 1 each 5 [...] epilepticus 03/17/2023 At risk for falls 03/13/2023 longterm (current) use of oral hypoglycemic fuentes fabian [...] 05/29 Assessment & Plan (07/05/2024 3:20 PM REMOTE MORTGAGE UNDERWRITER): A(n) yearly Medicare Annual Wellness Visit has [...] months Assessment & Plan (06/26/2023 2:02 PM REMOTE MORTGAGE UNDERWRITER): A(n) yearly Medicare Annual Wellness Visit has [...] months Assessment & Plan (06/23/2022 3:06 PM REMOTE MORTGAGE UNDERWRITER): A(n) initial Medicare Annual Wellness Visit has [...] (06/19/2022): Added automatically from request for surgery [id number] Ear ringing 03/03/2013 Asymmetrical sensorineural hearing loss 03/03/20 13 Stress fracture 07/07/2012 Arthralgia of hip 02/06/2011 Resolved Problems Problem Noted Date Diagnosed Date Resolved Date Hospital discharge follow-up 06/11/2023 08/07/2023 Assessment & Plan (06/11/2023 1:42 PM REMOTE MORTGAGE UNDERWRITER): I have reviewed the hospital record, medications, [...] on file Legal Sex Female 9:30 AM REMOTE MORTGAGE UNDERWRITER Gender Identity Female 04/05/2022 6:17 PM CDT Sexual Orientation Straight 04/05/2022 6: 17 PM CDT Last Filed Vital Signs Vital Sign Reading Time Taken Comments Blood Pressure 129/77 07/08/2024 3:11 PM REMOTE MORTGAGE UNDERWRITER Pulse 72 07/08/2024 3:11 PM REMOTE MORTGAGE UNDERWRITER Temperature 36.8 ??C (98.2 ??F) 07/08/2024 3:11 PM CS T Respiratory Rate 18 07/05/2024 3:02 PM REMOTE MORTGAGE UNDERWRITER Oxygen Saturation 98% 07/08/2024 3:11 PM REMOTE MORTGAGE UNDERWRITER Inhaled Oxygen Concentration - - Weight 65.8 kg (145 lb) 07/08/2024 3:11 PM REMOTE MORTGAGE UNDERWRITER Height 157.5 cm (5' 2 ) 07/08/2024 3:11 PM REMOTE MORTGAGE UNDERWRITER Body Mass Index 26.52 07/08/2024 3:11 PM REMOTE MORTGAGE UNDERWRITER Plan of Treatment Not on file Procedures Procedure Name Priority Date/Time Associated Diagnosis Comments HEAD COMPUTED TOMOGRAPHY (CT) WITHOUT CONTRAST Schedule Routine, Read Routine (OP Routine) 07/11/2024 9:14 AM REMOTE MORTGAGE UNDERWRITER URINALYSIS, MICROSCOPIC ONLY Routine 07/02/2024 10:20 AM REMOTE MORTGAGE UNDERWRITER Weakness generalized EGFR Routine 07/02/2024 10:20 AM REMOTE MORTGAGE UNDERWRITER Weakness generalized DIFFERENTIAL AUTO Routine 07/02/2024 10: 20 AM REMOTE MORTGAGE UNDERWRITER Weakness generalized CBC WITH AUTO DIFFERENTIAL Routine 07/02/2024 10:20 AM REMOTE MORTGAGE UNDERWRITER Weakness generalized COMPREHENSIVE METABOLIC PANEL Routine 07/02/2024 10:20 AM REMOTE MORTGAGE UNDERWRITER Weakness generalized ALBUMIN CREATININE RATIO, URINE Routine 07/02/2024 10:20 AM REMOTE MORTGAGE UNDERWRITER Hypertension associated with diabetes (HCC) HEMOGLOBIN A1C Routine 07/02/2024 10:20 AM REMOTE MORTGAGE UNDERWRITER Hypertension associated with diabetes (HCC) LAMOTRIGINE LEVEL Routine 07/02/2024 10: 20 AM REMOTE MORTGAGE UNDERWRITER Seizure (HCC) LIPID PANEL Routine 07/02/2024 10:20 AM REMOTE MORTGAGE UNDERWRITER Hypertension associated with diabetes (HCC) URINALYSIS AND REFLEX TO MICROSCOPIC AND CULTURE Routine 07/02/2024 10:20 AM REMOTE MORTGAGE UNDERWRITER Weakness generalized XR SPINE LUMBAR 2 OR 3 VIEWS Schedule SHIRA, Read SHIRA (Appt Today, Awaiting Results) 06/18/2024 3:04 PM REMOTE MORTGAGE UNDERWRITER Accidental fall, subsequent encounter XR HIP LEFT 2 OR 3 VIEWS Schedule SHIRA, Read SHIRA (Appt Today, Awaiting Results) 06/18/2024 3:04 PM REMOTE MORTGAGE UNDERWRITER Accidental fall, subsequent encounter XR KNEE RIGHT [...] TOMOGRAPHY (CT) WITHOUT CONTRAST (07/11/2024 9:14 AM REMOTE MORTGAGE UNDERWRITER) Anatomical Region Laterality Modality N/A Computed Tomogra phy us Marcell Rucker MD IMG CT PROCEDURES Final Result * eGFR (07/02/2024 10:20 AM REMOTE MORTGAGE UNDERWRITER) eGFR 66 >=60 mL/min/1. 73 m2 Comment: [...] reviewed 2021. Blood 07/02/2024 10:2 0 AM REMOTE MORTGAGE UNDERWRITER 07/02/2024 5:35 PM REMOTE MORTGAGE UNDERWRITER us Kimberly Nicolas MD LAB BLOOD ORDERABLES Final Resu lt AILE[facility] [id number] Department [place] [address] * Differential, auto (07/02/2024 10:20 AM REMOTE MORTGAGE UNDERWRITER) Neutrophil abs 5.1 1.5 - 6.5 K/cumm Imm gran abs 0.0 0.0 - 0.1 K/cumm CERNER Lymphocyte abs 1.4 0.8 - 3.3 K/cumm [facility] Monocyte abs 0.7 0.2 - 0.8 K/cumm [facility] Eosinophil abs 0.3 0.0 - 0.5 K/cumm [facility] Basophil abs 0.0 0.0 - 0.1 K/cumm [facility] Neutrophil pct 68.0 % [facility] Comment: Interpretive Data Percent cell count reference ranges are not reported, since discordance with absolute values may lead to misinterpretation of CBC data. Current Interpretive Data was last revised on 2017. Imm gran pct 0.5 % [facility] Comment: Interpretive Data Percent cell count reference ranges are not reported, since discordance with absolute values may lead to misinterpretation of CBC data. Current Interpretive Data was last revised on 2017. Lymphocyte pct 18.7 % [facility] Comment: Interpretive Data Percent cell count reference ranges are not reported, since discordance with absolute values may lead to misinterpretation of CBC data. Current Interpretive Data was last revised on 2017. Monocyte pct 9.0 % [facility] Comment: Interpretive Data Percent cell count reference ranges are not reported, since discordance with absolute values may lead to misinterpretation of CBC data. Current Interpretive Data was last revised on 2017. Eosinophil pct 3.4 % [facility] Comment: Interpretive Data Percent cell count reference ranges are not reported, since discordance with absolute values may lead to misinterpretation of CBC data. Current Interpretive Data was last revised on 2017. Basophil pct 0.4 % [facility] Comment: Interpretive Data Percent cell count reference ranges are not reported, since discordance with absolute values may lead to misinterpretation of CBC data. Current Interpretive Data was last revised on 2017. Blood 07/02/2024 10:2 0 AM REMOTE MORTGAGE UNDERWRITER 07/02/2024 5:00 PM REMOTE MORTGAGE UNDERWRITER us Kimberly Nicolas MD LAB BLOOD ORDERABLES Final Resu lt [facility]W [address] [place] [address] * (ABNORMAL) Urinalysis reflex to microscopic and culture Urine, clean voided (07/02/2024 10:20 AM REMOTE MORTGAGE UNDERWRITER) Color, ur Yellow Yellow Clarity, ur Clear [...] tendency for uric acid stone formation. Source: [facility] SNTMNT Current Interpretive Data was last revised on [...] CERNER Urine, clean voided 07/02/2024 10:20 AM REMOTE MORTGAGE UNDERWRITER 07/02/2024 5:00 PM REMOTE MORTGAGE UNDERWRITER us Kimberly Nicolas MD LAB MICROBIOLOGY - GENERAL MIA LEARY Final Result [facility] [address] [place] [address] * (ABNORMAL) CBC with auto differential (07/02/2024 10:20 AM REMOTE MORTGAGE UNDERWRITER) WBC 7.4 3.8 - 9.9 K/cumm Hgb [...] CH MCHC 30.1(L) 32.3 - 35.7 g/dL [facility] RDW CV 13.0 11.1 - 14.9 % [facility] RDW SD 43.8 35.7 - 48.1 fL [facility] NRBC abs 0.00 0.00 - 0.01 K/cumm [facility] Blood 07/02/2024 10:2 0 AM REMOTE MORTGAGE UNDERWRITER 07/02/2024 5:00 PM REMOTE MORTGAGE UNDERWRITER us Kimberly Nicolas MD LAB BLOOD ORDERABLES Final Resu lt Performing Organization Address [facility] de Phone Number [facility] [address] [place] [address] * (ABNORMAL) Albumin Creatinine Ratio, Urine (07/02/2024 10:20 AM REMOTE MORTGAGE UNDERWRITER) Albumin Ur 45.5 mg/L Comment: Interpretive Data No reference range established. Current interpretive data was last revised 2018. Creatinine Ur 73.7 mg/dL [facility] Comment: Interpretive Data No reference range established. Current interpretive data was last revised 2018. Albumin Creatinine Ratio, Ur 62(H) 1 - 29 mg/g [facility] Urine 07/02/2024 10:2 0 AM REMOTE MORTGAGE UNDERWRITER 07/02/2024 5:00 PM REMOTE MORTGAGE UNDERWRITER us Servando Torre MD LAB URINE ORDERABLES Final Result Performing Organization Address [facility] de Phone Number [facility] [address] [place] [address] * Lamotrigine level (07/02/2024 10:20 AM REMOTE MORTGAGE UNDERWRITER) Lamotrigine 9.6 3.0 - 15.0 mcg/mL [facility] ref Lab Comment: ADDITIONAL INFORMATION This test was developed and its performance characteristics determined by [facility] in a manner consistent with CLIA requirements. This test has not been cleared or approved by the U.S. Food and Drug Administration. Test Performed by: [facility] - [facility] [address] [place] [address] Cheese Cutter: Liu Davis Ph.D.; CLIA# [id number] Blood 07/02/2024 10:2 0 AM REMOTE MORTGAGE UNDERWRITER 07/02/2024 5:00 PM REMOTE MORTGAGE UNDERWRITER Servando Torre MD LAB BLOOD ORDERABLES Final Result Performing Organization Address [facility] de Phone Number AILE[facility] [address] [place] [address] [facility] * (ABNORMAL) Urinalysis, microscopic only (07/02/2024 10:20 AM REMOTE MORTGAGE UNDERWRITER) WBC, ur 6-10(A) 0 - 5 /HPF RBC, ur 3-5(A) 0 - 2 /HPF [facility] Epithelial cells, squamous, ur 1-5 0 - 5 /HPF [facility] Mucous, ur Present(A) [facility] Culture Reflex Comment Reflex conditions for urine culture (WBC >10) not met. [facility] Urine, clean voided 07/02/2024 10:20 AM REMOTE MORTGAGE UNDERWRITER 07/02/2024 5:00 PM REMOTE MORTGAGE UNDERWRITER Kimberly Nicolas MD LAB URINE ORDERABLES Final Resu lt Performing Organization Address [facility] Co de Phone Number [facility]LE[facility] MATTHEW [address] [facility] [address] * (ABNORMAL) Hemoglobin A1c (07/02/2024 10:20 AM REMOTE MORTGAGE UNDERWRITER) Hgb A1C 6.4(H) 4.0 - 5.6 % Estimated Average Glucose 137 mg/dL [facility] Comment: The ADA recommends reporting an estimated Average Glucose (eAG) with all Hemoglobin A1c results using the equation derived from a study of 507 normal and diabetic adults. ??Minority populations were underrepresented and children were not included. ?? (Diabetes Care 31:4158-2662, 2008). ??The eAG is not equivalent to a fasting glucose. Blood 07/02/2024 10:2 0 AM REMOTE MORTGAGE UNDERWRITER 07/02/2024 5:00 PM REMOTE MORTGAGE UNDERWRITER us Servando Torre MD LAB BLOOD ORDERABLES Final Result Performing Organization Address City/State/ZIP Co nv Phone Number [facility]LE[facility] [id number] Department of Laboratories [place] [phone] * (ABNORMAL) Lipid panel (07/02/2024 10:20 AM REMOTE MORTGAGE UNDERWRITER) Cholesterol 190 30 - 199 mg/dL Comment: [...] CERNER CH Blood 07/02/2024 10:2 0 AM REMOTE MORTGAGE UNDERWRITER 07/02/2024 5:00 PM REMOTE MORTGAGE UNDERWRITER us Servando Torre MD LAB BLOOD ORDERABLES Final Result [facility] [address] Department [place] [address] * (ABNORMAL) Comprehensive metabolic panel (07/02/2024 10:20 AM REMOTE MORTGAGE UNDERWRITER) Sodium 141 135 - 145 mmol/L Potassium, [...] CERNER CH Blood 07/02/2024 10:2 0 AM REMOTE MORTGAGE UNDERWRITER 07/02/2024 5:00 PM REMOTE MORTGAGE UNDERWRITER us Kimberly Nicolas MD LAB BLOOD ORDERABLES Final Resu lt [facility] [address] Department [place] [address] * XR Spine Lumbar 2 or 3 Views (06/18/2024 3:04 PM REMOTE MORTGAGE UNDERWRITER) Anatomical Region Laterality Modality Spine N/A Digital Radiogra phy 06/18/2024 5:05 PM REMOTE MORTGAGE UNDERWRITER Narrative 06/18/2024 5:13 PM REMOTE MORTGAGE UNDERWRITER EXAM DESCRIPTION: XR HIP LEFT 2 OR [...] no change from prior CT. There is olpl-xe-cpbtgwkz multilevel degenerative endplate change with no acute [...] D: ??06/18/2024 5:13 PM T: Report ID: [id number] Reading Location: ??[id number] Procedure Note Teofilo Rand MD - 06/18/2024 [...] no change from prior CT. There is dyso-kz-xfyiabww multilevel degenerative endplate change with no acute [...] Teofilo Rand M.D. MJ T: Report ID: [id number] Reading Location: [place] [address] Pricilla Olguin PIPELINE INSPECTOR IMG XR PROCEDURES Final Result * XR Hip Left 2+ Vw (06/18/2024 3:04 PM REMOTE MORTGAGE UNDERWRITER) Anatomical Region Laterality Modality Lower Extremities, Hip, Pelvis Left D igital Radiography 06/18/2024 5:05 PM REMOTE MORTGAGE UNDERWRITER Narrative 06/18/2024 5:13 PM REMOTE MORTGAGE UNDERWRITER EXAM DESCRIPTION: XR HIP LEFT 2 OR [...] no change from prior CT. There is nvqu-sm-pakxjuuj multilevel degenerative endplate change with no acute [...] D: ??06/18/2024 5:13 PM T: Report ID: [id number] Reading Location: ??[id number] Procedure Note Teofilo Rand MD - 06/18/2024 [...] no change from prior CT. There is arbi-lo-cvrpsctp multilevel degenerative endplate change with no acute [...] Teofilo Rand M.D. MJ T: Report ID: [id number] Reading Location: [place] [address] Pricilla Olguin NP IMG XR PROCEDURES Final [...] D: ??05/13/2024 4:47 PM T: Report ID: [id number] Reading Location: ??[id number] Procedure Note Dylan Zuniga MD - 05/13/2024 [...] signed by Dylan CARROLL T: Report ID: [id number] Reading Location: [id number] Mara Almendarez PIPELINE INSPECTOR IMG XR PROCEDURES Final Re sult * Lamotrigine level (04/27/2024 11:52 AM CDT) Lamotrigine 6.3 3.0 - 15.0 mcg/mL [facility] ref Lab Comment: ADDITIONAL INFORMATION This test was developed and its performance characteristics determined by [facility] in a manner consistent with CLIA requirements. This test has not been cleared or approved by the U.S. Food and Drug Administration. Test Performed by: [facility] - [address] [address] Cheese Cutter: Liu Davis Ph.D.; CLIA# [id number] Blood 04/27/2024 11:5 2 AM CDT 04/27/2024 7:35 PM CDT Adria Diop MD LAB BLOOD OR DERABLES Final Result [facility] MATTHEW [address] [place] [address] Rubicon ref Lab * Diabetic Eye Exam (06/25/2023) Historical Provider HEALTH MAINTENANCE Final Result * Dexa Axial Skeleton Bone Density 1 or 2 Site (12/12/2022 2:33 PM CDT) Anatomical Region Laterality Modality Body N/A Radiographic Keyanna ging Narrative 12/12/2022 3:00 PM CDT Patient Name: Lisa Allen Date of : 1945 Date of scan: 12/12/2022 Bone mineral density was performed on a [employer] Discovery Densitometer. ?? Based on machine cross-calibration [...] by the International Society of Clinical Densitometry. [id number] Servando Torre MD IMG DXA PROCEDURES Final Re sult from Last 3 Months or Most Recently Relevant to Health Maintenance [place] [address] [facility] MEDICARE SUPPLEMENT MEDICARE [employer] MEDICARE SUPPLEMENT MEDICARE [facility] MEDICARE [facility] Advance Directives For more information, please contact: [phone] * Full Code (Latest Code Status on File) Date Activated Date Inactivated Comments 11/29/2022 9:30 AM 11/29/2022 3:28 PM Care Teams Tarp Repairer Relationship Specialty Start Date End Date Servando Torre MD [id number] [address] PCP - General Family Medicine 06/19/22 Mariela Denton MD [address] [place] [address] Referring Physician Gastroenterology 06/19/22 Lexis Barroso OD [address] [place] [id number] Newspaper Distributor Supervisor 09/19/22
--- OUTSIDE RECORDS SUMMARY | 2024-07-15 19:55 | XMS_ITS | Continuity of Care Document ---
Author Organization [employer] [place] Address [address] [place] [address] Phone Care Team Providers Care Sephora Product Consultant Name Role Phone Saul Ribera PT Unavailable [...] Diagnoses Date Provider Providers Copied on Encounter [facility], [id number], tel:[phone] [place] No Information 3 Bacilio Saul. . [facility], [id number], tel:[phone] [facility] No Information 3 Bacilio Saul. . Referring Provider: Servando Bernstein, [facility] [place], [address]. tel:[phone] [facility] [address], [id number], tel:[phone] [facility] No Information 3 Bacilio Saul. . Referring Provider: Servando Bernstein, [facility], [address]. tel:[phone] [facility] [address], [id number], tel:[phone] [facility] Urge incontinence 3 Bacilio Saul. . Referring Provider: Servando Bernstein, [facility] [place], [address]. tel:[phone] [facility], [address] [facility], [place], [place], [id number], [place] tel:[phone] [facility] No Information [place]-1 3 Bacilio Saul. . Referring Provider: Servando Bernstein, [address] [place], [address]. tel:[phone] [facility] [address] [facility], [place], [place], [id number], [place] tel:[phone] [facility] No Information Franklin-1 - 3 Bacilio Saul. . Referring Provider: Servando Bernstein, [address] [place], [address]. tel:[phone] [facility] [address] [address], [place], [place], [id number], tel:[phone] [facility] No Information Franklin-0 6 3 Bacilio Saul. . Referring Provider: Servando Bernstein, [address] [place], [address]. tel:[phone] [facility] [address] [address], [place], [place], [id number], tel:[phone] [facility] No Information Franklin-0 3 Bacilio Saul. . Referring Provider: Servando Bernstein, [address] [place], [address]. tel:[phone] [facility] [address] [facility], [place], [place], [id number], [place] tel:[phone] [facility] No Information Franklin-0 - 3 Bacilio Saul. . Referring Provider: Servando Bernstein, [address] [place], [address]. tel:[phone] [facility], [address] [facility], [place], [place], [id number], [place] tel:[phone] [facility] No Information November- 3 Bacilio Saul. . Referring Provider: Servando Bernstein, [address] [facility], [place], [address]. tel:[phone] [facility], [address] [address], [place], [place], [id number], tel:[phone] [facility] No Information November- 3 Bacilio Saul. . Referring Provider: Servando Bernstein, [address] [facility], [place], [address]. tel:[phone] [facility], [address] [address], [place], [place], [id number], tel:[phone] [facility] No Information November- 3 Bacilio Saul. . Referring Provider: Servando Bernstein, [address] [place], [address]. tel:[phone] [facility], [address] [address], [place], [place], [id number], tel:[phone] [facility] No Information 3 Bacilio Saul. . Referring Provider: Servando Bernstein, [address] [place], [address]. tel:[phone], [id number], tel:[phone] [facility] No Information November- 3 Bacilio Saul. . Referring Provider: Servando Bernstein, [address] [place], [address]. tel:[phone] [facility], [address] [address], [place], [place], [id number], tel:[phone] [facility] No Information 3 Bacilio Saul. . Referring Provider: Servando Bernstein, [address] [place], [address]. tel:[phone] [facility] [address], [place], [id number], [place] tel:[phone] [facility] No Information May-0 9-202 3 Bacilio Saul. . Referring Provider: Sevrando Bernstein, [address] [place], [address]. tel:[phone] [facility] [address] [address], [place], [id number], [place] tel:[phone] [facility] No Information May-0 3-202 3 Bacilio Saul. . Referring Provider: Servando Bernstein, [address] [place], [address]. tel:[phone] [facility], [address] [address], [place], [id number], tel:[phone] [facility] No Information May-0 2-202 3 Bacilio Saul. . Referring Provider: Servando Bernstein, [address] [place], [address]. tel:[phone] [facility], [id number], tel:[phone] [facility] No Information Apr-2 7-202 3 Bacilio Saul. . Referring Provider: Servando Bernstein, [address] [place], [address]. tel:[phone] [facility], [id number], [place] tel:[phone] [facility] Unspecified urinary incontinenceUrge incontinence Apr-2 5-202 3 Bacilio Saul. . Referring Provider: Servando Bernstein, [address] [place], [address]. tel:[phone] [facility], [address] [address], [place], [id number], [place] tel:[phone] [facility] No Information Apr-2 0-202 3 Bacilio Saul. . Referring Provider: Servando Bernstein, [address] [facility], [place], [address]. tel:[phone] [facility], [address] [address], [place], [place], [address], tel:[phone] [facility] No Information Apr-1 8-202 3 Bacilio Saul. . Referring Provider: Servando Bernstein, [address] [facility], [place], [address]. tel:[phone] [facility], [address] [address], [place], [address], [place] tel:[phone] [facility] No Information Apr-1 4-202 3 Bacilio Saul. . Referring Provider: Servando Bernstein, [address] [place], [address]. tel:[phone] [facility], [address] [address], [place], [id number], [place] tel:[phone] [facility] No Information Apr-1 3-202 3 Bacilio Saul. . Referring Provider: Servando Bernstein, [address] [place], [address]. tel:[phone] [facility], [address], [id number], [place] tel:[phone] [facility] No Information Apr-0 6-202 3 Bacilio Saul. . Referring Provider: Servando Bernstein, [address] [place], [address]. tel:[phone] [facility] [address], [place], [id number], [place] tel:[phone] [facility] No Information Apr-0 4-202 3 Bacilio Saul. . Referring Provider: Servando Bernstein, [address] [place], [address]. tel:[phone] [place] [address], [address] [address], [place], [place], [address], [place] tel:[phone] [facility] No Information Mar-3 1-202 3 Bacilio Saul. . Referring Provider: Servando Bernstein, [address] [place], [address]. tel:[phone] [facility] [address], [place], [id number], [place] tel:[phone] [facility] No Information Mar-3 0-202 3 Bacilio Saul. . Referring Provider: Servando Bernstein, [address] [place], [address]. tel:[phone] [facility] [address], [place], [place], [address], tel:[phone] [facility] No Information Mar-2 3-202 3 Bacilio Saul. . Referring Provider: Servando Bernstein, [address] [place], [address]. tel:[phone] [facility], [id number], [place] tel:[phone] [facility] No Information Mar-2 1-202 3 Bacilio Saul. . Referring Provider: Servando Bernstein, [address] [place], [address]. tel:[phone] [facility] [address], [place], [address], [place] tel:[phone] [facility] No Information Mar-1 5- 3 Bacilio Saul. . Referring Provider: Servando Bernstein, [address] [place], [address]. tel:[phone] [facility] [address], [place], [address], [place] tel:[phone] [facility] Unspecified urinary incontinenceUnsp ecified urinary incontinence Mar-1 3-202 3 Bacilio Saul. . Referring Provider: Servando Bernstein, [address] [facility], [place], [address]. tel:[phone] [facility], [address] [address], [place], [place], [id number], tel:[phone] [facility] [place] No Information Sep- 3 Bacilio Saul. . Referring Provider: Servando Bernstein, [address] [facility], [place], [address]. tel:[phone] [facility], [address] [address], [place], [id number], [place] tel:[phone] [facility] No Information 3 Bacilio Saul. . Referring Provider: Servando Bernstein, [address] [facility], [place], [address]. tel:[phone] [facility], [address] [address], [place], [id number], [place] tel:[phone] [facility] No Information 3 Bacilio Saul. . Referring Provider: Servando Bernstein, [address] [place], [address]. tel:[phone] [address], [place], [place], [address], [place] tel:[phone] [facility] No Information 3 Bacilio Saul. . Referring Provider: Servando Bernstein, [address] [facility], [place], [address]. tel:[phone] [facility], [address] [address], [place], [address], [place] tel:[phone] [facility] No Information 3 Fatimah Jimenez. . Referring Provider: Servando Bernstein, [address] [place], [address]. tel:[phone] [facility], [address] [address], [place], [id number], [place] tel:[phone] [facility] No Information 3 Bacilio Saul. . Referring Provider: Servando Bernstein, [facility] [place], [address]. tel:[phone] [facility], [address] [address], [place], [address], [place] tel:[phone] [facility] No Information 3 Bacilio Saul. . Referring Provider: Servando Bernstein, [address] [place], [address]. tel:[phone] [facility] [address], [place], [address], tel:[phone] [facility] No Information 3 Bacilio Saul. . Referring Provider: Servando Bernstein, [address] [place], [address]. tel:[phone] [facility], [id number], [place] tel:[phone] [facility] No Information 3 Bacilio Saul. . Referring Provider: Servando Bernstein, [facility], [address]. tel:[phone] [facility], [id number], [place] tel:[phone] [facility] No Information 3 Bacilio Saul. . Referring Provider: Servando Bernstein, [facility], [address]. tel:[phone] [facility] [address], [place], [place], [address], tel:[phone] [facility] No Information 3 Bacilio Saul. . Referring Provider: Servando Bernstein, [address] [facility], [place], [address]. tel:[phone] [facility] [address] [address], [place], [place], [id number], tel:[phone] [facility] [place] No Information 3 Bacilio Saul. . Referring Provider: Servando Bernstein, [address] [facility], [place], [address]. tel:[phone] [facility], [address] [facility], [place], [id number], [place] tel:[phone] [facility] [place] No Information 3 Bacilio Saul. . Referring Provider: Servando Bernstein, [address] [facility], [place], [address]. tel:[phone] [facility], [address] [address], [place], [id number], tel:[phone] [facility] No Information 3 Bacilio Saul. . Referring Provider: Servando Bernstein, [address] [facility], [place], [address]. tel:[phone] [facility], [address] [place] [address], [place], [place], [id number], tel:[phone] [facility] No Information 3 [place], [place]. Referring Provider: Servando Bernstein, [address] [facility], [place], [address]. tel:[phone] [facility], [address] [facility], [place], [place], [id number], [place] tel:[phone] [facility] No Information 2 Bacilio Saul. . Referring Provider: Servando Bernstein, [address] [facility], [place], [address]. tel:[phone] [facility] [facility] [address], [place], [place], [id number], tel:[phone] [facility] No Information 2 Bacilio Mcdonald . Referring Provider: Servando Bernstein, [facility], [place], [address]. tel:[phone] [facility] [place], [address], [place], [place], [address], [place] tel:[phone] [facility] Urge incontinence 2 Titus Nicolasla. [address] [facility], [address], [place], [address], [place]. tel: [phone] Referring Provider: Servando Bernstein, [address] [facility], [place], [address]. tel:[phone] Family History Family Member Type Diagnosis Age At Onset No Information Payers Payer name Insurance type Covered republican ID Authoriza tion(s) Medicare [place] MB [id number] [facility] [id number] Social History Type Description Quantity Date Captured [...]
--- OUTSIDE RECORDS SUMMARY | 2024-07-15 19:55 | XMS_ITS | Encounter Summary ---
Author Organization [facility] Healthcare Address [address] [place] [address] Care Team Providers Care Mainframe Systems Administrator Name Role Phone Servando Torre MD Primary Care Provider [phone] Mariela Denton MD Unavailable [phone] Lexis Barroso OD Unavailable [phone] Reason for Referral * Diagnostic Imaging (Routine) - Closed Specialty Diagnoses / Procedures Referred By Contac t Referred To Contact Radiology Procedures HEAD COMPUTED TOMOGRAPHY (CT) [place] [id number] [place] [address] Phone: tel: Referral ID Status Reason Start Date Expiration Date Visits Re quested Visits Authorized [id number] Closed 07/12/2024 08/11/2025 1 1 PROCESS MILLER HEAD Encounter Details Date Type Department Care Team (Late st Contact Info) Description 07/12/2024 Orders Only [facility] Medical Group Primary Care at [address] [address] [place] [id number] [place] [address] Social History Tobacco Use Types [...] on file Legal Sex Female 9:30 AM WET PROCESS MILLER HEAD Gender Identity Female 04/05/2022 6:17 PM CDT Sexual Orientation Straight 04/05/2022 6: 17 PM CDT documented as of this encounter Plan of Treatment Not on file documented as of this encounter Procedures Procedure Name Priority Date/Time Associated Diagnosis Comments HEAD COMPUTED TOMOGRAPHY (CT) WITHOUT CONTRAST Schedule Routine, Read Routine (OP Routine) 07/11/2024 9:14 AM WET PROCESS MILLER HEAD documented in this encounter Results * HEAD COMPUTED TOMOGRAPHY (CT) WITHOUT CONTRAST (07/11/2024 9:14 AM WET PROCESS MILLER HEAD) Anatomical Region Laterality Modality N/A Computed Tomogra phy Marcell Rucker MD IMG CT PROCEDURES Final Result documented in this encounter Visit Diagnoses Not on filedocumented in this encounter Care Teams Mainframe Systems Administrator Relationship Specialty Start Date End Date Servando Torre MD [address] [facility] [address] [place] [address] PCP - General Family Medicine 06/19/22 Mariela Denton MD [address] [place] [address] Referring Physician Gastroenterology 06/19/22 Lexis Barroso OD [address] [place] [id number] [employer] 09/19/22 documented as of this encounter
--- OUTSIDE RECORDS SUMMARY | 2024-07-15 19:56 | XMS_ITS | Encounter Summary ---
Author Organization [facility] Address [address] [place] [address] Phone Care Team Providers Care Manager Casino Name Role Phone Servando Torre MD Primary Care Provider [phone] [phone] Mariela Denton MD Unavailable +1 -[phone] Lexis Barroso OD Unavailable +1- [phone] Encounter Details Date Type Department Care Team (Late st Contact Info) Description 05/19/2024 4:30 PM CDT Office Visit [facility] [address] [place] [address] [place] [id number] Grace Nicolas MD [address] [facility] [address] [place] [address] 653- Vascular dementia without behavioral disturbance (HCC) (Primary [...] on file Legal Sex Female 9:30 AM CARDIOLOGY NURSE Gender Identity Female 04/05/2022 6:17 PM [...] INSTRUCTIONS For Ms. Radha Allen (: 1945) [facility], Department of Neurology Clinic [...] today. You may wish to consult an freight elevator operator regarding these matters. Level of Care Recommendation: [...] in about a year. . You can [phone] if you have questions about scheduling. If we ordered blood tests today, please stop by the [facility] [employer] [facility] patient testing area on the third floorto have your blood drawn. This is across from the [employer], in the same direction as the [email or web address] [facility] parking garage. You should continue to see your primary care doctor at regular intervals. RESOURCES FOR ADDITIONAL INFORMATION AND SUPPORT We will refer you to our Alzheimer Association Lock And Dam Repairer. The social and human services assistant will call you in the next 7-10 days. Alzheimer's Association of [place] Chapter: ; (toll free); http://www.alz.org [facility] 840-571-9350 http://memorycarehs [facility] Agency on Aging (serving [facility]) http://[facility].[place].org/government/hslaaa.html [facility] Agency on Aging (serving [place], [facility] and [facility] http://www.multicare valley hospitalaaa.org [facility] Psychological Associates- provides counseling and help with the aging and ailments of our loved ones. They may be able to provide counseling in your home as well as in their office and services may be covered by Medicare. [address], [place] [address] or [email or web address]. Website: http://FREECULTR/services/cqnnhf-ongs-jewtwlqb/ Mind in [employer], Cognitive Stimulation Through Activity at the [place] [employer] Your[employer]Leap. [address] [place] [address] http://www.komoot/project/ezex-dp-eeyhau/ Lewy Body Dementia Association: (toll free); http://www.LBDA.org Association for Frontotemporal Dementias: (toll free); http://www.ftd-picks.org Geriatric District Sales Coordinator: Decision Point consulting, Ms. Varsha Mcgarry, https://www.decisionpointconsulting.org/ Pathways for aging http://Sova/ Yessy Anthony with Next Step Elder Assist, Certified First Press Operator, [address], [address] [address]. , fax: [phone]. [email or web address] documented in this encounter Ordered Prescriptions Prescription [...] PATIENT FOLLOW-UP VISIT Grace Nicolas MD, MSc [employer] Department of Neurology Patient Name: RADHA ALLEN Medical Record Number (MRN): [id number] Date of (): 1945 Encounter Date: 05/19/2024 Primary Care Practitioner: Servando Ballard MD CHIEF COMPLAINT / Review of Past Visits Ms. Allen returns today for follow-up concerning her diagnosis of (F01.50) Vascular dementia withoutbehavioral disturbance (HCC) (primary encounter diagnosis) . She was last assessed in 10/2023 by CONVENIENCE STORE MANAGER Pamela Langston, at which time presented for [...] assisted living facility. [facility], to the assisted living. Since our last [...] able to operate household appliances including the tailor's aide, laundry machines, and tool maker bench. She has difficulty using technology, including the [...] with high-risk medication Abnormal liver function tests longterm (current) use of oral hypoglycemic drugs Type [...] were symmetric. There was no pronator drift. Jlhxbm-qhmb-aikeku testing were normal. No tremor or bradykinesia [...] -Josette singers. 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 - [facility], Friday. She was part of the group . - juan song. - some for . RECENT EVENT PER P: We have group - Josette singers. Working ready for [place] - we go to nursing homes. Last Friday, I got back. - [place] - // most of them were. - I can't remember singing vet's day. COGNITIVE TESTING REPORT Please see neurobehavioral exam results (below) and summary sheet in the chart for test scores. On formal neurobehavioral testing, which took from 1611 h to 1640 h, scores were in the mildly impaired range on tests of semantic memory ([place] Naming, verbal fluency). Scores were in the [...] are not specific for subcortical disease . [facility] Neurobehavioral Status Test Results 04/09/2023 7:00 AM 05/19/2024 7:00 AM [facility] Neurobehavioral Status Exam Results Repository ICF signed? No No Verbal Fluency Total Score 10 8 [place] Naming (15 item) Total Score 15 15 [...] Ms. Jose Alfredo Kumar or our Physician Certified Orthotist Practice Manager Ms. Marianne Mccullough, in 6 months. --- [...] labs, tests and medical records, time spent lxfr-yh-ctze with the patient and family during the visit, performing counselling and education, placing orders and documenting the visit in the patient's EHR. Grace Nicolas MD, MSc Sheet Metal Helper Department of Neurology, [facility] Detailed plan and patient/caregiver education and referrals are in AVS copied below: Patient Instructions [facility] - VISIT SUMMARY & PATIENT INSTRUCTIONS For Ms. Radha Allen (: 1945) [facility], Department of Neurology Clinic [...] today. You may wish to consult an freight elevator operator regarding these matters. Level of Care Recommendation: [...] in about a year. . You can [phone] if you have questions about scheduling. If we ordered blood tests today, please stop by the [facility] patient testing area on the third floorto have your blood drawn. This is across from the [employer], in the same direction as the bridge tothe parking garage. You should continue to see your primary care doctor at regular intervals. RESOURCES FOR ADDITIONAL INFORMATION AND SUPPORT We will refer you to our Alzheimer Association Lock And Dam Repairer. The social and human services assistant will call you in the next 7-10 days. Alzheimer's Association [facility] Chapter: ; (toll free); http://www.alz.org [facility] [phone] http://memorycareMinidoka Memorial Hospital Agency on Aging (serving [facility]) http://[facility].[place].[facility]/government/hslaaa.html [facility] Agency on Aging (serving [facility] and [facility] http://www.[facility].org [facility] Associates- provides counseling and help with the aging and ailments of our loved ones. They may be able to provide counseling in your home as well as in their office and services may be covered by Medicare. [address], [place] [address] or [email or web address].InternetArray. Website: http://FREECULTR/services/ukssea-zlmm-mtgsjpny/ Mind in Motion, Cognitive Stimulation Through Activity at the [place] [employer]NextLeap. [address] [facility] [place] [address] http://www.Preggers.RockThePost/project/vipg-qu-jziblo/ Lewy Body Dementia Association: (toll free); http://www.LBDA.org Association for Frontotemporal Dementias: (toll free); http://www.ftd-picks.org Geriatric District Sales Coordinator: Decision Point consulting, Ms. Varsha Mcgarry, https://www.decisionpointconsulting.org/ Pathways for aging http://Sova/ Yessy Anthony with Next Step Elder Assist, Certified First Press Operator, [address], [place] [address]. , fax: [phone]. [email or web address] documented in this encounter Plan of Treatment [...] as of this encounter Care Teams Manager Casino Relationship Specialty Start Date End Date Servando Torre MD [address] [address] PCP - General Family Medicine 06/19/22 Mariela Denton MD [address] [place] [address] Referring Physician Gastroenterology 06/19/22 Lexis Barroso OD [address], [place] [address] Booster Plant Operator 09/19/22 documented as of this encounter
--- OUTSIDE RECORDS SUMMARY | 2024-07-15 19:56 | XMS_ITS | Encounter Summary ---
Author Organization [facility] Healthcare Address [address] [place] [address] Care Team Providers Care Diesel Pile Hammer Operator Name Role Phone Servando Torre MD Primary Care Provider [phone]- [phone] Mariela Denton MD Unavailable +1 -[phone] Lexis Barroso OD Unavailable +1- [phone] Encounter Details Date Type Department Care Team (Latest Contact Info) Description 03/30/2024 9:26 AM CDT - 03/30/2024 11:59 PM CDT Hospital Encounter [facility] [address] [place] [address] Mixed diabetic hyperlipidemia associated with [...] on file Legal Sex Female 9:30 AM RENEWABLE ENERGY BROKER Gender Identity Female 04/05/2022 6:17 PM CDT [...] nightly 01/01/2024 vedolizumab (ENTYVIO) 300 mg recon solnIndications:Police Communications Dispatcher roberto ulcerative colitis, unspecified complication (HCC) Infuse [...] LAB BLOOD ORDERABLES Final Result [facility] [address] Department [place] [address] * Differential, auto (03/30/2024 9:26 AM CDT) Neutrophil abs 5.4 1.5 - 6.5 K/cumm Imm gran abs 0.1 0.0 - 0.1 K/cumm [facility] Lymphocyte abs 1.8 0.8 - 3.3 K/cumm [facility] Monocyte abs 0.8 0.2 - 0.8 K/cumm [facility] Eosinophil abs 0.3 0.0 - 0.5 K/cumm [facility] Basophil abs 0.1 0.0 - 0.1 K/cumm [facility] Neutrophil pct 64.8 % [facility] Comment: [...] revised on 2017. Lymphocyte pct 21.4 % [facility] Comment: Interpretive Data Percent cell count reference [...] LAB BLOOD ORDERABLES Final Result [facility] [address] Department [place] [address] * (ABNORMAL) CBC with auto [...] LAB BLOOD ORDERABLES Final Result [facility] [address] Department [place] [address] * Comprehensive metabolic panel (03/30/2024 9:26 AM [...] LAB BLOOD ORDERABLES Final Result [facility] [address] Department [place] [address] * (ABNORMAL) Hemoglobin A1c (03/30/2024 9:26 AM CDT) Pathologist [facility] Hgb A1C 6.8(H) 4.0 - 5.6 % Estimated Average Glucose 148 mg/dL [facility] Comment: The ADA recommends reporting an estimated Average Glucose (eAG) with all Hemoglobin A1c results using the equation derived from a study of 507 normal and diabetic adults. ??Minority populations were underrepresented and children were not included. ?? (Diabetes Care 31:4865-9200, 2008). ??The eAG is not equivalent to a fasting glucose. Blood 03/30/2024 9:26 AM CDT 03/30/2024 4:55 PM CDT Servando Torre MD LAB BLOOD ORDERABLES Final Result Performing Organization Address [facility]/State/[facility] Co de Phone Number [facility]LE[facility] [address] Department [employer] [place] [address] * (ABNORMAL) Lipid panel (03/30/2024 9:26 AM CDT) Pathologist [facility] Cholesterol 196 30 - 199 mg/dL Comment: [...] LAB BLOOD ORDERABLES Final Result [facility] [address] Department [place] [address] documented in this encounter Visit Diagnoses Diagnosis Mixed diabetic hyperlipidemia associated with type 2 diabetes mellitus (HCC) Hypertension associated with diabetes (HCC) Unspecified essential hypertension documented in this encounter Care Teams Diesel Pile Hammer Operator Relationship Specialty Start Date End Date Servando Torre MD [facility] [address] PCP - General Family Medicine 06/19/22 Mariela Denton MD [address] [facility] [address] [place] [address] Referring Physician Gastroenterology 06/19/22 Lexis Barroso OD [address] [place] [address] Scuba Diving Teacher 09/19/22 documented as of this encounter
--- OUTSIDE RECORDS SUMMARY | 2024-07-15 19:56 | XMS_ITS | Encounter Summary ---
Author Organization [facility] Healthcare Address [address] [place] [address] Care Team Providers Care Pss Delivery Professional Name Role Phone Servando Torre MD Primary Care Provider +1- [phone] Mariela Denton MD Unavailable [phone] -[phone] Lexis Barroso OD Unavailable +1- [phone] Encounter Details Date Type Department Care Team (Late st Contact Info) Description 04/27/2024 11:45 AM CDT Lab [facility] Medical Group Outpatient Lab at [address] [address] Social History Tobacco Use Types [...] on file Legal Sex Female 9:30 AM QUALITY ASSURANCE REPRESENTATIVE Gender Identity Female 04/05/2022 6:17 PM CDT Sexual Orientation Straight 04/05/2022 6: 17 PM CDT documented as of this encounter Plan of Treatment Not on file documented as of this encounter Visit Diagnoses Not on filedocumented in this encounter Care Teams Pss Delivery Professional Relationship Specialty Start Date End Date Servando Torre MD [address] [facility] [address] [place] [address] PCP - General Family Medicine 06/19/22 Mariela Denton MD [address] [facility] [address] [place] [address] Referring Physician Gastroenterology 06/19/22 Lexis Barroso OD [address] [place] [address] Deputy United [place] Marshal 09/19/22 documented as of this encounter
--- OUTSIDE RECORDS SUMMARY | 2024-07-15 19:56 | XMS_ITS | Encounter Summary ---
Author Organization [facility] Healthcare Address [address] [place] [address] Care Team Providers Care Mortgage Assistant Name Role Phone Servando Torre MD Primary Care Provider Mariela Denton MD Unavailable [phone] -[phone] Lexis Barroso OD Unavailable +1- [phone] Reason for Visit * Reason Onset Date Comments Medical Records Request 02/18/2024 Encounter Details Date Type Department Care Team (Late st Contact Info) Description 02/18/2024 Telephone [facility] Medical Group Primary Care at [address] [address] Servando Torre MD [address] [place] [address] [address] [place] [address] Medical Records Request Social History [...] on file Legal Sex Female 9:30 AM CALENDER INSPECTOR Gender Identity Female 04/05/2022 6:17 PM CDT Sexual Orientation Straight 04/05/2022 6: 17 PM CDT documented as of this encounter Miscellaneous Notes * Telephone Encounter - Lexis Jhaveri MA - 02/26/2024 11:32 AM CDT Records upfront for pick up and delivery driver. LMOM letting pt's daughter know * Telephone [...] Needed: as soon as possible Delivery Method: framing mill supervisor at practice Additional Comments: Pt daughter [...] filedocumented in this encounter Care Teams Mortgage Assistant Relationship Specialty Start Date End Date Servando Torre MD [address] [address] PCP - General Family Medicine 06/19/22 Mariela Denton MD [address] [place] [address] Referring Physician Gastroenterology 06/19/22 Lexis Barroso OD [address] [place] [address] Nurse Manager 09/19/22 documented as of this encounter
--- OUTSIDE RECORDS SUMMARY | 2024-07-15 19:56 | XMS_ITS | Encounter Summary ---
Author Organization [facility] Healthcare Address [address] [place] [address] Care Team Providers Care Agronomy Supervisor Name Role Phone Servando Torre MD Primary Care Provider Mariela Denton MD Unavailable [phone] [phone] Lexis Barroso OD Unavailable +1- [phone] Encounter Details Date Type Department Care Team (Late st Contact Info) Description 2024 Orders Only [facility] Medical Group Primary Care at [address] [address] Servando Torre MD [address] [place] [address] [address] [place] [address] Social History Tobacco Use Types [...] on file Legal Sex Female 9:30 AM MARBLE FINISHER Gender Identity Female 04/05/2022 6:17 PM CDT [...] 04/01/2024 added in this encounter Care Teams Agronomy Supervisor Relationship Specialty Start Date End Date Servando Torre MD [address] [facility] [address] [place] [address] PCP - General Family Medicine 06/19/22 Mariela Denton MD [facility] [address] [place] [address] Referring Physician Gastroenterology 06/19/22 Lexis Barroso OD [address] [place] [address] Forming Yardage Control Operator 09/19/22 documented as of this encounter
--- OUTSIDE RECORDS SUMMARY | 2024-07-15 19:56 | XMS_ITS | Encounter Summary ---
Author Organization [facility] Healthcare Address [address] [place] [address] Care Team Providers Care Electronic Components Assembler Name Role Phone Servando Torre MD Primary Care Provider Mariela Denton MD Unavailable [phone] -[phone] Lexis Barroso OD Unavailable +1- [phone] Reason for Referral * Diagnostic Imaging (Routine) - Closed Specialty Diagnoses / Procedures Referred By Angel t Referred To Contact Diagnoses Accidental fall, subsequent encounter Procedures XR Hip Left 2+ Vw Pricilla Olguin NP [address] [place] [address] Phone: tel: fax: [facility] Medical [facility] Referral ID Status Reason Start Date Expiration Date Visits Re quested Visits Authorized [id number] Closed 06/18/2024 07/18/2025 1 1 RVISOR QUILTING Reason for Visit * Reason Comments Pain Pt c/o 2 falls in e last week and having pain in lower L back and bilateral rib pain. She was xrayed at [place] at the time of the fall and no fx was seen Encounter Details Date Type Department Care Team (Late st Contact Info) Description 06/18/2024 2:30 PM SUPERVISOR QUILTING Office Visit [facility] Medical Group [facility] [place] [address] [place] [address] Pricilla Olguin NP [address] [place] [address] [address] [place] [address] Accidental fall, subsequent encounter (Primary Dx) Social [...] file Legal Sex Female 9:30 AM SUPERVISOR QUILTING Gender Identity Female 04/05/2022 6:17 PM CDT Sexual Orientation Straight 04/05/2022 6: 17 PM CDT documented as of this encounter Last Filed Vital Signs Vital Sign Reading Time Taken Comments Blood Pressure 116/50 06/18/2024 2:34 PM SUPERVISOR QUILTING Pulse 76 06/18/2024 2:34 PM SUPERVISOR QUILTING Temperature 36.4 ??C (97.5 ??F) 06/18/2024 2:34 PM CS T Respiratory Rate 18 06/18/2024 2:34 PM SUPERVISOR QUILTING Oxygen Saturation 96% 06/18/2024 2:34 PM SUPERVISOR QUILTING Inhaled Oxygen Concentration - - Weight - - Height 157.5 cm (5' 2 ) 06/18/2024 2:34 PM SUPERVISOR QUILTING Body Mass Index - - documented in [...] bilateral rib pain. She was xrayed at [place] at the time of the fall and no fx was seen) Patient presents to convenient care with daughter for complaints of left hip and lower back pain bilaterally. Patient and daughter state that patient fell Friday morning and Friday evening of this week. Patient was taken to [facility] Emergency room on Friday night and had [...] with high-risk medication Abnormal liver function tests superintendent container terminal (current) use of oral hypoglycemic drugs Type [...] catheter every 8 (eight) weeks Infused at: [facility] ([facility] order in [facility] under 'Procedures' tab)., Disp: 1 each, Rfl: [...] office note has been partially dictated using Ingeny software, and as a result portions of the record may have been created with this software. Occasional wrong-word or 'vvwly-i-penf' substitutions may have occurred due to the inherent limitations of voice recognition software. Read the chartcarefully and recognize, using context, where substitutions have occurred. RVISOR QUILTING RVISOR QUILTING documented in this encounter Plan of Treatment Not on file documented as of this encounter Results * XR Hip Left 2+ Vw (06/18/2024 3:04 PM SUPERVISOR QUILTING) Anatomical Region Laterality Modality Lower Extremities, Hip, Pelvis Left D igital Radiography 06/18/2024 5:05 PM SUPERVISOR QUILTING Narrative 06/18/2024 5:13 PM SUPERVISOR QUILTING EXAM DESCRIPTION: XR HIP LEFT 2 OR [...] no change from prior CT. There is mlhp-zu-zohnmcfj multilevel degenerative endplate change with no acute [...] D: ??06/18/2024 5:13 PM T: Report ID: [id number] Reading Location: ??[id number] Procedure Note Teofilo Rand MD - 06/18/2024 [...] no change from prior CT. There is kett-ez-kijstgmq multilevel degenerative endplate change with no acute [...] Teofilo Rand M.D. MJ T: Report ID: [id number] Reading Location: [place] [address] Pricilla Olguin AS400 PROGRAMMER IMG XR PROCEDURES Final Result documented in [...] 07/05/2024 added in this encounter Care Teams Electronic Components Assembler Relationship Specialty Start Date End Date Servando Torre MD [facility][note 3][address] [address] PCP - General Family Medicine 06/19/22 Mariela Denton MD [facility] [address] [facility] [address] [place] [address] Referring Physician Gastroenterology 06/19/22 Lexis Barroso OD [address] [place] [address] Control Inspector 09/19/22 documented as of this encounter
--- OUTSIDE RECORDS SUMMARY | 2024-07-15 19:56 | XMS_ITS | Encounter Summary ---
Author Organization [facility] Healthcare Address [address] [place] [address] Care Team Providers Care Sales Process Manager Name Role Phone Servando Torre MD Primary Care Provider +1- [phone] Mariela Denton MD Unavailable +1 -[phone] Lexis Barroso OD Unavailable +1- [phone] Encounter Details Date Type Department Care Team (Late st Contact Info) Description 03/30/2024 9:15 AM CDT Lab [facility] Medical Group Outpatient Lab at [address] [address] Anemia (Primary Dx) Social History [...] on file Legal Sex Female 9:30 AM GLUE MACHINE OPERATOR Gender Identity Female 04/05/2022 6:17 PM CDT Sexual Orientation Straight 04/05/2022 6: 17 PM CDT documented as of this encounter Plan of Treatment Not on file documented as of this encounter Visit Diagnoses Diagnosis Anemia- Primary Unspecified anemia documented in this encounter Care Teams Sales Process Manager Relationship Specialty Start Date End Date Servando Torre MD [address] [address] PCP - General Family Medicine 06/19/22 Mariela Denton MD [address] [place] [address] Referring Physician Gastroenterology 06/19/22 Lexis Barroso OD [address] [place] [address] Washer Blanket 09/19/22 documented as of this encounter
--- OUTSIDE RECORDS SUMMARY | 2024-07-15 19:56 | XMS_ITS | Encounter Summary ---
Author Organization [facility] Healthcare Address [address] [place] [address] Care Team Providers Care Tnt Powder Worker Name Role Phone Servando Torre MD Primary Care Provider Mariela Denton MD Unavailable +1 [phone] Lexis Barroso OD Unavailable +1- [phone] Encounter Details Date Type Department Care Team (Late st Contact Info) Description 05/15/2024 Telephone [facility] Medical Group [facility] [address] [place] [address] Pricilla Olguin NP 2 [facility] [address] [place] [address] Social History Tobacco Use Types [...] on file Legal Sex Female 9:30 AM BREEDING TECHNICIAN Gender Identity Female 04/05/2022 6:17 PM CDT Sexual Orientation Straight 04/05/2022 6: 17 PM CDT documented as of this encounter Miscellaneous Notes * Telephone Encounter - Pricilla Olguin NP - 05/15/2024 10:36 AM CDT Patient was scheduled at [facility] [employer] at 6:00 p.m. for complaints of confusion. [...] on filedocumented in this encounter Care Teams Tnt Powder Worker Relationship Specialty Start Date End Date Servando Torre MD [facility] [address] PCP - General Family Medicine 06/19/22 Mariela Denton MD [facility] [address] [place] [address] Referring Physician Gastroenterology 06/19/22 Lexis Barroso OD [address] [place] [address] Pre Sales Systems Engineer 09/19/22 documented as of this encounter
--- OUTSIDE RECORDS SUMMARY | 2024-07-15 19:56 | XMS_ITS | Encounter Summary ---
Author Organization [facility] Healthcare Address [address] [place] [address] Care Team Providers Care Welder Helper Name Role Phone Servando Torre MD Primary Care Provider [phone] Mariela Denton MD Unavailable [phone] [phone] Lexis Braroso OD Unavailable +1- [phone] Reason for Visit * Reason Onset Date Comments Knee Injury 05/12/2024 Encounter Details Date Type Department Care Team (Late st Contact Info) Description 05/12/[address] [facility] Medical Group Primary Care at [address] [address] Servando Torre MD [address] [place] [address] [address] [place] [address] Social History Tobacco Use Types [...] file Legal Sex Female 9:30 AM ELECTRICAL PLUMBING SUPERVISOR Gender Identity Female 04/05/2022 6:17 PM [...] to chair today. Patient lives at the [facility]. Denies: other symptoms Relevant Meds: elevating [...] wants to be seen Protocols used: Knee [id number] * Telephone Encounter - Leena Hoskins RN [...] on filedocumented in this encounter Care Teams Welder Helper Relationship Specialty Start Date End Date Servando Torre MD [address] [facility] [address] [place] [address] PCP - General Family Medicine 06/19/22 Mariela Denton MD [address] [facility] [address] [place] [address] Referring Physician Gastroenterology 06/19/22 Lexis Barroso OD [address] [place] [address] Cashier Or Checker Stock Clerk 09/19/22 documented as of this encounter
--- OUTSIDE RECORDS SUMMARY | 2024-07-15 19:56 | XMS_ITS | Encounter Summary ---
Author Organization [facility] Address [address] [place] [address] Phone Care Team Providers Care Rug Sample Beveler Name Role Phone Servando Torre MD Primary Care Provider [phone] [phone] Mariela Denton MD Unavailable [phone] [phone] Lexis Barroso OD Unavailable [phone]- [phone] Encounter Details Date Type Department Care Team (Late st Contact Info) Description 01/12/2024 4:30 PM CDT Office Visit [facility] Epilepsy [address] [facility] 6th [place] [address] [place] [address] Adria Burleson MD [address] [facility] [address] [address] [place] [address] Seizure (HCC) (Primary Dx) Social [...] on file Legal Sex Female 9:30 AM GREENHOUSE SPECIALIST Gender Identity Female 04/05/2022 6:17 PM [...] history: Epilepsy Risk Factors: Febrile seizure(s): No SQL DATABASE PROGRAMMER infection: Yes c/b deafness on the R [...] to explain the patient's seizures. -EEG at [facility] on 03/07/2023: This is an abnormal awake [...] fr ontotemporal epileptiform discharges and slowing. Cedric fl'ed due to agitations and sleepiness, tolerating LTG [...] documented as of this encounter Care Teams Rug Sample Beveler Relationship Specialty Start Date End Date Servando Torre MD [address] [facility] [address] [place] [address] PCP - General Family Medicine 06/19/22 Mariela Denton MD [address] [facility] [address] [place] [address] Referring Physician Gastroenterology 06/19/22 Lexis Barroso OD [address] [place] [address] Agency Development Manager 09/19/22 documented as of this encounter
--- OUTSIDE RECORDS SUMMARY | 2024-07-15 19:56 | XMS_ITS | Encounter Summary ---
Author Organization [facility] Address [address] [place] [address] Phone Care Team Providers Care Theology Teacher Name Role Phone Servando Torre MD Primary Care Provider +1 [phone] Mariela Denton MD Unavailable + [phone] Lexis Barroso OD Unavailable +1- [phone] Reason for Visit * Reason Comments Dementia Encounter Details Date Type Department Care Team (Late st Contact Info) Description 07/08/2024 3:15 PM PUBLIC SPEAKING TEACHER Office Visit [facility] [address] [facility] 6th Floor [address] [place] [address] Chelsie Francisco NP [address] [place] [address] Somnolence, daytime (Primary Dx); Memory impairment; Frequent [...] on file Legal Sex Female 9:30 AM PUBLIC SPEAKING TEACHER Gender Identity Female 04/05/2022 6:17 PM CDT Sexual Orientation Straight 04/05/2022 6: 17 PM CDT documented as of this encounter Last Filed Vital Signs Vital Sign Reading Time Taken Comments Blood Pressure 129/77 07/08/2024 3:11 PM PUBLIC SPEAKING TEACHER Pulse 72 07/08/2024 3:11 PM PUBLIC SPEAKING TEACHER Temperature 36.8 ??C (98.2 ??F) 07/08/2024 3:11 PM CS T Respiratory Rate - - Oxygen Saturation 98% 07/08/2024 3:11 PM PUBLIC SPEAKING TEACHER Inhaled Oxygen Concentration - - Weight 65.8 kg (145 lb) 07/08/2024 3:11 PM PUBLIC SPEAKING TEACHER Height 157.5 cm (5' 2 ) 07/08/2024 3:11 PM PUBLIC SPEAKING TEACHER Body Mass Index 26.52 07/08/2024 3:11 PM PUBLIC SPEAKING TEACHER documented in this encounter Patient Instructions * Patient Instructions* Chelsie Francisco NP - 07/08/2024 3:15 PM PUBLIC SPEAKING TEACHER [facility] After Visit Summary SCOUT [...] Additional Resources and Support: Yahaira Ritchie R.N. Payroll And Benefits Specialist Alzheimer's Association [address] [facility] [place] [address] Toll Free: [phone] ext [phone] Email: The best way to reach our team is via My Chart, this is a secure way for us to communicate about your health care. Please call The My Chart Support Desk: [phone] for help with My Chart, or [phone] to obtain a link for access. Future [...] let us know your preference when scheduling. IC SPEAKING TEACHER documented in this encounter Progress Notes * [...] the same week (confused, took to ED), [facility]. Everything checked out fine. CS [...] with high-risk medication Abnormal liver function tests alf (current) use of oral hypoglycemic drugs Type [...] catheter every 8 (eight) weeks Infused at: [facility] (OSF order in Epic under 'Procedures' [...] Drinking: Never Medical Records Review: I reviewed [facility] notes and prior Neuropsychometric testing scores. Lab [...] normal 04/09/2023 7:00 AM 05/19/2024 7:00 AM [facility] Neurobehavioral Status Exam Results Repository ICF signed? No No Verbal Fluency Total Score 10 8 [place] Naming (15 item) Total Score 15 15 [...] Dementia Ratin04/09/2023 7:00 AM 05/19/2024 7:00 AM [facility] CDR/DIAGNOSIS NEW Repository ICF signed? No No [...] twice in the emergency department following falls ([facility]), brain imaging normal per CS. [...] Additional Resources and Support: Yahaira Ritchie R.N. Payroll And Benefits Specialist Alzheimer's Association [address] [place] [address] Toll Free: [phone] ext [phone] Email: The best way to reach our team is via My Chart, this is a secure way for us to communicate about your health care. Please call The My Chart Support Desk: [phone] for help with My Chart, or [phone] to obtain a link for access. Future Appointments Date Time Provider Department Center 08/03/2024 8:00 AM [facility] CARD EDW ECHO/VASC CV EDW US MG Decent 08/10/2024 4:30 PM Adria Burleson MD EPI CAM 6C NL 09/23/2024 2:00 PM Teofilo Tang MD [facility] CAR MRVL Specialty 10/06/2024 2:00 PM Servando Torre MD PCP EDW2 PC 11/10/2024 12:30 PM Adria Burleson MD EPI CAM 6C NL 05/04/2025 3:45 PM Josué Cook MD GI CAM 12B [facility] We offer in person and telemedicine [...] time spent in any separately reportable services. IC SPEAKING TEACHER IC SPEAKING TEACHER documented in this encounter Plan of [...] documented as of this encounter Care Teams Theology Teacher Relationship Specialty Start Date End Date Servando Torre MD [address] [address] PCP - General Family Medicine 06/19/22 Mariela Denton MD [address] [place] [address] Referring Physician Gastroenterology 06/19/22 Lexis Barroso OD [address] [place] [address] Research Director 09/19/22 documented as of this encounter
--- OUTSIDE RECORDS SUMMARY | 2024-07-15 19:56 | XMS_ITS | Encounter Summary ---
Author Organization [facility] Healthcare Address [address] [place] [address] Care Team Providers Care Manager Small Business Name Role Phone Servando Torre MD Primary Care Provider Mariela Denton MD Unavailable [phone] [phone] Lexis Barroso OD Unavailable +1- [phone] Reason for Visit * Reason Comments Follow-up 3 month f/u Encounter Details Date Type Department Care Team (Late st Contact Info) Description 04/01/2024 2:00 PM CDT Office Visit [facility] Medical Group Primary Care at [address] [address] Servando Torre MD [address] [place] [address] [address] [place] [address] Hypertension associated with diabetes (HCC) [...] on file Legal Sex Female 9:30 AM RAT FARMER Gender Identity Female 04/05/2022 6:17 PM CDT [...] you have any questions or concerns at [phone]. You may receive a phone call, text, MYCHART message, or e-mail asking about your care today. We would love to hear your feedback on how EXCELLENT your care wastoday! Wishing you better health, always. Dr. Torre * Attachments The following attachments cannot be sent through Care Everywhere. * Meal Planning with Diabetes Exchanges (Tester Compressed Gases) (Peruvian) documented in this encounter Progress Notes * [...] [facility] (OSF order in [facility] under 'Procedures' tab). 1 each 5 acetaminophen [...] 04/09/2024 added in this encounter Care Teams Manager Small Business Relationship Specialty Start Date End Date Servando Torre MD [address] [address] PCP - General Family Medicine 06/19/22 Mariela Denton MD [address] [place] [address] Referring Physician Gastroenterology 06/19/22 Lexis Barroso OD [address] [place] [address] Watch Adjuster 09/19/22 documented as of this encounter
--- OUTSIDE RECORDS SUMMARY | 2024-07-15 19:56 | XMS_ITS | Encounter Summary ---
Author Organization [facility] Address [address] [place] [address] Phone Care Team Providers Care Calculus Tutor Name Role Phone Servando Torre MD Primary Care Provider +1 [phone] Mariela Denton MD Unavailable +1 [phone] Lexis Barroso OD Unavailable +1- [phone] Reason for Visit * Reason Comments Follow-up Encounter Details Date Type Department Care Team (Late st Contact Info) Description 11/17/2023 11:15 AM CDT Office Visit [facility] [address] [facility] 6th Floor [address] [place] [address] [place], Pamela Ruiz NP [address] [facility] [phone] [place] [address] Vascular dementia without behavioral disturbance [...] on file Legal Sex Female 9:30 AM FLAG SIGNALER Gender Identity Female 04/05/2022 6:17 PM CDT [...] Program, from The Alzheimer's Association, please call [phone], or you can register online [email or web address]. 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 For additional assistance, email or call [phone] (press 1 for clinical trials). ClinicalTrials.gov is a resource provided by the U.S. National Library of Medicine. You can look upclinical trials (research opportunities) online At clinicaltrials.gov Alzheimer's Association [facility] Chapter: ; (toll free); http://www.alz.org, The Alzheimer's Association 17/02 Helpline provides reliable information and support to all those who need assistance. Call toll-free anytime day or night at . Caregiver Guide: tips for caregivers of people with Alzheimer's dementia, www.jerry.nih.gov/Alzheimers /Publication/Zwpgei-qwtqtv-kyxmjjdfjy-disease/about-guide [facility], [address] [place]. [address], , Occupational Therapists who offers caregiver training, family support, and in home safety assessments at no cost. Memorycarehs.org [facility] Agency on Aging (serving [facility]) http://[place].indiana.[facility]/government/hslaaa.html [facility] Agency on Aging (serving [facility] [email or web address] If you need to reach our office, please call our nurse at [phone], option 4, leave a message, this voicemail is checked several times per day. If you need to contact our clinical social work therapist: Pablo Burt or Edd Lino, from the Alzheimer's Association, please call [phone] Future Appointments Date Time Provider Department Center 01/01/2024 2:00 PM Servando Torre MD [facility] EDW2 01/12/2024 4:30 PM Adria Burleson MD EPI CAM 6C NL 05/05/2024 3:45 PM Josué Cook MD GI CAM 12B [facility] 05/11/2024 4:00 PM Kimberly Nicolas MD [facility] CAM 6C NL 09/23/2024 2:00 PM Teofilo Tang MD [facility] CAR MRVL Specialty documented in this encounter Ordered Prescriptions Prescription Sig Dispense Quantity Refills Last Filled Start Date End Date rivastigmine (EXELON) 4.6 mg/[address] 4.6 mg on the skin daily 30 patch 1 11/17/2023 05/19/2024 documented in this encounter Progress Notes * Pamela Langston NP - 11/17/2023 11:15 AM CDT [facility] OFFICE VISIT Pamela MACK- (Nurse Practitioner) [facility] [employer] Department of Neurology Patient Name: RADHA ALLEN Medical Record Number (MRN): [id number] Date of (): 1945 Encounter Date: 11/17/2023 [...] supports for caregivers, discussed availability of our Hang Gliding Instructor from the Alzheimer's Association ACTIVE PROBLEMS Patient [...] with high-risk medication Abnormal liver function tests FPC (current) use of oral hypoglycemic drugs Type [...] catheter every 8 (eight) weeks Infused at: [facility] ([facility] '[facility]' tab)., Disp: 1 [...] memory loss. Medical Records Review: I reviewed [facility] notes and prior Neuropsychometric testing scores. 04/09/2023 7:00 AM [facility] Neurobehavioral Status Exam Results Repository ICF signed? No Verbal Fluency Total Score 10 [place] Naming (15 item) Total Score 15 MMSE [...] Sensation was intact to light touch. Coordination Zsqqdv-[id number]-gjofwy testing was normal. Reflexes Reflexes were symmetric at the biceps, brachioradialis and knees. Gait Gait was slow and ambulates with walker She was fluent throughout the interview and examination. NEUROBEHAVIORAL TESTING REPORT On formal neurobehavioral testing, which took from [id number]. On more global tests, MMSE was 29. [...] GDS. Neurobehavioral test results: 04/09/2023 7:00 AM [facility] Neurobehavioral Status Exam Results Repository ICF signed? No Verbal Fluency Total Score 10 [place] Naming (15 item) Total Score 15 MMSE [...] Errors 0 Clinical Dementia Ratin04/09/2023 7:00 AM [facility] CDR/DIAGNOSIS NEW Repository ICF signed? No Memory [...] now living in assisted living facility at [facility] in [place], [place]. She is struggling with sleep and [...] Program, from The Alzheimer's Association, please call [phone], or you can register online [email or web address]. 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 For additional assistance, email or call [phone] (press 1 for clinical trials). ClinicalTrials.gov is a resource provided by the U.S. National Library of Medicine. You can look upclinical trials (research opportunities) online At clinicaltrials.gov Alzheimer's Association [facility] Chapter: ; (toll free); http://www.alz.org, The Alzheimer's Association 17/02 Helpline provides reliable information and support to all those who need assistance. Call toll-free anytime day or night at . Caregiver Guide: tips for caregivers of people with Alzheimer's dementia, www.jerry.nih.gov/Alzheimers /Publication/Pgdlqa-uwfrdk-lmcxsojmph-disease/about-guide [facility], [address] [place]. [address], , Occupational Therapists who offers caregiver training, family support, and in home safety assessments at no cost. Memorycarehs.org [facility] Agency on Aging ([facility]) http://[place].indiana.[facility]/government/hslaaa.html [facility] on [facility] [email or web address] If you need to reach our office, please call our nurse at [phone], option 4, leave a message, this voicemail is checked several times per day. If you need to contact our clinical social work therapist: Pablo Burt or Edd Lino, from the Alzheimer's Association, please call [phone] Future Appointments Date Time Provider Department Center 01/01/2024 2:00 PM Servando Torre MD PCP EDW2 01/12/2024 4:30 PM Adria Burleson MD EPI CAM 6C 05/05/2024 3:45 PM Josué Cook MD [place] [id number] [facility] 05/11/2024 4:00 PM Kimberly Nicolas MD [facility] CAM 6C 09/23/2024 2:00 PM Teofilo Tang MD [facility] CAR VL Specialty I spent 45 minutes,face [...] reflect the currentclinical condition. Pamela Langston MSN, FUSE SPOOLER-[facility] [employer] [address] [facility], [address] [place] [address] documented in this encounter Plan of Treatment Not on file documented as of this encounter Visit Diagnoses Diagnosis Vascular dementia without behavioral disturbance (HCC)- Primary documented in this encounter Care Teams Calculus Tutor Relationship Specialty Start Date End Date Servando Torre MD [address] [facility] [address] [place] [address] PCP - General Family Medicine 06/19/22 Mariela Denton MD [address] [place] [address] Referring Physician Gastroenterology 06/19/22 Lxeis Barroso OD [address] [place] [address] Aerospace Engineer 09/19/22 documented as of this encounter
--- OUTSIDE RECORDS SUMMARY | 2024-07-15 19:56 | XMS_ITS | Encounter Summary ---
Author Organization [facility] Address [address] [place] [address] Phone Care Team Providers Care Shirt Folding Machine Operator Name Role Phone Servando Torre MD Primary Care Provider +1 [phone] Mariela Denton MD Unavailable +1 [phone] Lexis Barroso OD Unavailable +1- [phone] Encounter Details Date Type Department Care Team (Late st Contact Info) Description 05/05/2024 9:30 AM CDT Office Visit [facility] Epilepsy [address] [facility] 6th [place] [address] [place] [address] Adria Burleson MD [address] [facility] [address] [place] [address] Localization-related symptomatic epilepsy and epileptic [...] on file Legal Sex Female 9:30 AM STRATEGIC ACCOUNT DIRECTOR Gender Identity Female 04/05/2022 6:17 PM [...] As a result, she was transported to [facility]. Her Lamictal was increased to 125 mg [...] /encephalomalacia/gliosis and scattered microhemorrhages and generalized atrophy. [facility] EEG showed right frontotemporal epileptiform discharges [...] history: Epilepsy Risk Factors: Febrile seizure(s): No TELECOMMUNICATION SYSTEMS DESIGNER infection: Yes c/b deafness on the R [...] to explain the patient's seizures. -EEG at [facility] on 03/07/2023: This is an abnormal [...] PGY-5 Division of Pediatric & Developmental Neurology [facility] in [place] Seizure precautions including no driving for at [...] Primary documented in this encounter Care Teams Shirt Folding Machine Operator Relationship Specialty Start Date End Date Servando Torre MD [facility] [address] [address] PCP - General Family Medicine 06/19/22 Mariela Denton MD [address] [place] [address] Referring Physician Gastroenterology 06/19/22 Lexis Barroso OD [address] [place] [address] Forging Die Finisher 09/19/22 documented as of this encounter
--- OUTSIDE RECORDS SUMMARY | 2024-07-15 19:56 | XMS_ITS | Encounter Summary ---
Author Organization [facility] Address [address] [place] [address] Phone Care Team Providers Care Railcar Foreman Name Role Phone Servando Torre MD Primary Care Provider +1 [phone] Mariela Denton MD Unavailable + -[phone] Lexis Barroso OD Unavailable +1- [phone] Reason for Visit * Reason Onset Date Comments Med Management (Renewal Entyvio Auth/Order) 03/2024 No Auth Required 04/05/2024 Encounter Details Date Type Department Care Team (Late st Contact Info) Description 04/05/[address] [facility] Gastroenterology [address] [facility] 12th [place] [address] [place] [address] Janice Baez LPN Med Management [...] file Legal Sex Female 9:30 AM HOT DIPPER Gender Identity Female 04/05/2022 6:17 PM CDT Sexual Orientation Straight 04/05/2022 6: 17 PM CDT documented as of this encounter Miscellaneous Notes * Telephone Encounter - Janice Baez LPN - 04/06/2024 10:31 AM CDT Below auth info has been faxed to local infusion team at . -------Fax Transmission Report------- To: Recipient at [id number] Subject: AC - Authorization [Secure] Result: The transmission was successful. Explanation: All Pages Ok Pages Sent: 3 Connect Time: 1 minutes, 39 seconds Transmit Time: 04/06/2024 12:03 Transfer Rate: 9600 Status Code: 0000 Retry Count: 0 Job Id: [id number] Unique Id: [id number] Fax Line: 2 Fax Regional Education Coordinator: [id number] * Telephone Encounter - Eron Chacha aCrolina - 04/06/2024 9:59 AM CDT SPECIALTY DRUG INFUSION AUTHORIZATION Patient: Lisa Allen : 1945 Ordering Physician: ANJANA MARIE #: [id number] DRUG NAME: ENTYVIO DOSE/FREQUENCY: 300MG IVP Q 8 WEEKS CPT/ADMIN CODE(S): J3380, 49630, 44029 DX CODE(S): K51.919 LOCATION: [address] [place] [address] PHONE #[phone], FAX #[phone] TAX ID #[id number], NPI #[id number] Primary Insurance: MCR ID # [id number] Group # Ins Phone # RTDidi, 04/06/2024 [...] Ins Rep Name: MICHAEL Denson Phone #: [phone] Date Called: 04/06/2024 Call ref #: [id number] PCP Referral required? Referral number/visits/valid dates: Is [...] up. -------Fax Transmission Report------- To: Recipient at [id number] Subject: AC - Renewal Entyvio Order [Secure] Result: The transmission was successful. Explanation: All Pages Ok Pages Sent: 3 Connect Time: 1 minutes, 34 seconds Transmit Time: 04/05/2024 10:50 Transfer Rate: 9600 Status Code: 0000 Retry Count: 0 Job Id: [id number] Unique Id: [id number] Fax Line: 3 Fax Regional Education Coordinator: [id number] documented in this encounter Plan of Treatment Not on file documented as of this encounter Visit Diagnoses Diagnosis Chronic ulcerative colitis, unspecified complication (HCC)- Primary documented in this encounter Orders Procedures Count Last Ordered Date First Orde red Date ONCBCN OUTPATIENT FACILITY ORDERS 1 024 documented in this encounter Care Teams Railcar Foreman Relationship Specialty Start Date End Date Servando Torre MD [address] [address] PCP - General Family Medicine 06/19/22 Mariela Denton MD [address] [facility] [address] [place] [address] Referring Physician Gastroenterology 06/19/22 Lexis Barroso OD [address] [place] [address] Mobile Application Engineer 09/19/22 documented as of this encounter
--- OUTSIDE RECORDS SUMMARY | 2024-07-15 19:56 | XMS_ITS | Encounter Summary ---
Author Organization [facility] Address [address] [place] [address] Care Team Providers Care Special Education Teaching Assistant Name Role Phone Servando Torre MD Primary Care Provider +1- [phone] Mariela Denton MD Unavailable +1 -[phone] Lexis Barroso OD Unavailable +1- [phone] Encounter Details Date Type Department Care Team (Latest Contact Info) Description 07/02/2024 10:20 AM BIOFUELS PLANT CONSTRUCTION WORKER - 07/02/2024 11:59 PM [facility] Hospital Encounter [facility] [id number] [place] [address] Hypertension associated with diabetes (HCC); Seizure [...] on file Legal Sex Female 9:30 AM BIOFUELS PLANT CONSTRUCTION WORKER Gender Identity Female 04/05/2022 6:17 PM [...] nightly 01/01/2024 vedolizumab (ENTYVIO) 300 mg recon solnIndications:Field Service Poultry Technician roberto ulcerative colitis, unspecified complication (HCC) Infuse 5 mL (300 mg total) into a venous catheter every 8 (eight) weeks Infused at: [facility] ([facility] order in Epic under [...] Diagnosis Comments EGFR Routine 07/02/2024 10:20 AM BIOFUELS PLANT CONSTRUCTION WORKER Weakness generalized DIFFERENTIAL AUTO Routine 07/02/2024 10: 20 AM BIOFUELS PLANT CONSTRUCTION WORKER Weakness generalized URINALYSIS AND REFLEX TO MICROSCOPIC AND CULTURE Routine 07/02/2024 10:20 AM BIOFUELS PLANT CONSTRUCTION WORKER Weakness generalized CBC WITH AUTO DIFFERENTIAL Routine 07/02/2024 10:20 AM BIOFUELS PLANT CONSTRUCTION WORKER Weakness generalized ALBUMIN CREATININE RATIO, URINE Routine 07/02/2024 10:20 AM BIOFUELS PLANT CONSTRUCTION WORKER Hypertension associated with diabetes (HCC) LAMOTRIGINE LEVEL Routine 07/02/2024 10: 20 AM BIOFUELS PLANT CONSTRUCTION WORKER Seizure (HCC) URINALYSIS, MICROSCOPIC ONLY Routine 07/02/2024 10:20 AM BIOFUELS PLANT CONSTRUCTION WORKER Weakness generalized HEMOGLOBIN A1C Routine 07/02/2024 10:20 AM BIOFUELS PLANT CONSTRUCTION WORKER Hypertension associated with diabetes (HCC) LIPID PANEL Routine 07/02/2024 10:20 AM BIOFUELS PLANT CONSTRUCTION WORKER Hypertension associated with diabetes (HCC) COMPREHENSIVE METABOLIC PANEL Routine 07/02/2024 10:20 AM BIOFUELS PLANT CONSTRUCTION WORKER Weakness generalized documented in this encounter Results * (ABNORMAL) Urinalysis, microscopic only (07/02/2024 10:20 AM BIOFUELS PLANT CONSTRUCTION WORKER) WBC, ur 6-10(A) 0 - 5 /HPF RBC, ur 3-5(A) 0 - 2 /HPF [facility] Epithelial cells, squamous, ur 1-5 0 - 5 /HPF [facility] [place] Mucous, ur Present(A) [facility] [place] Culture Reflex Comment Reflex conditions for urine culture (WBC >10) not met. [facility] Urine, clean voided 07/02/2024 10:20 AM BIOFUELS PLANT CONSTRUCTION WORKER 07/02/2024 5:00 PM BIOFUELS PLANT CONSTRUCTION WORKER us Kimberly Nicolas MD LAB URINE ORDERABLES Final [facility] lt [facility] [address] Department [place] [address] * eGFR (07/02/2024 10:20 AM BIOFUELS PLANT CONSTRUCTION WORKER) eGFR 66 >=60 mL/min/1. 73 m2 Comment: [...] reviewed 2021. Blood 07/02/2024 10:2 0 AM BIOFUELS PLANT CONSTRUCTION WORKER 07/02/2024 5:35 PM BIOFUELS PLANT CONSTRUCTION WORKER us Kimberly Nicolas MD LAB BLOOD ORDERABLES Final Resu lt [facility] [address] [place] [address] * Differential, auto (07/02/2024 10:20 AM BIOFUELS PLANT CONSTRUCTION WORKER) Neutrophil abs 5.1 1.5 - 6.5 K/cumm Imm gran abs 0.0 0.0 - 0.1 K/cumm [facility] Lymphocyte abs 1.4 0.8 - 3.3 K/cumm [facility] Monocyte abs 0.7 0.2 - 0.8 K/cumm [facility] Eosinophil abs 0.3 0.0 - 0.5 K/cumm [facility] Basophil abs 0.0 0.0 - 0.1 K/cumm [facility] Neutrophil pct 68.0 % [facility] Comment: Interpretive Data Percent cell count [...] on 2017. Blood 07/02/2024 10:2 0 AM BIOFUELS PLANT CONSTRUCTION WORKER 07/02/2024 5:00 PM BIOFUELS PLANT CONSTRUCTION WORKER us Kimberly Nicolas MD LAB BLOOD ORDERABLES Final Resu lt [facility] [address] Department [place] [address] * (ABNORMAL) CBC with auto differential (07/02/2024 10:20 AM BIOFUELS PLANT CONSTRUCTION WORKER) WBC 7.4 3.8 - 9.9 K/cumm Hgb 13.3 11.9 - 15.5 g/dL [facility] Hct 44.2 35.6 - 45.5 % [facility] Plt 296 150 - 400 K/cumm [facility] MPV 9.4 9.1 - 12.3 fL [facility] RBC 4.79 3.90 - 5.20 M/cumm [facility] MCV 92.3 81.3 - 96.4 fL [facility] MCH 27.8 27.1 - 33.3 pg [facility] MCHC 30.1(L) 32.3 - 35.7 g/dL [facility] RDW CV 13.0 11.1 - 14.9 % [facility] RDW SD 43.8 35.7 - 48.1 fL [facility] NRBC abs 0.00 0.00 - 0.01 K/cumm [facility] Blood 07/02/2024 10:2 0 AM BIOFUELS PLANT CONSTRUCTION WORKER 07/02/2024 5:00 PM BIOFUELS PLANT CONSTRUCTION WORKER us Kimberly Nicolas MD LAB BLOOD ORDERABLES Final Resu lt [facility] [address] Department [place] [address] * (ABNORMAL) Comprehensive metabolic panel (07/02/2024 10:20 AM BIOFUELS PLANT CONSTRUCTION WORKER) Sodium 141 135 - 145 mmol/L Potassium, pl 4.1 3.3 - 4.9 mmol/L [facility] Chloride 103 97 - 110 mmol/L [facility] CO2 27 22 - 32 mmol/L [facility] Anion gap 11 2 - 15 mmol/L [facility] BUN 16 6 - 25 mg/dL [facility] Creatinine 0.88 0.60 - 1.10 mg/dL [facility] Glucose 128 70 - 199 mg/dL [facility] Comment: Interpretive Data Fasting glucose >/= [...] [facility] Blood 07/02/2024 10:2 0 AM BIOFUELS PLANT CONSTRUCTION WORKER 07/02/2024 5:00 PM BIOFUELS PLANT CONSTRUCTION WORKER us Kimberly Nicolas MD LAB BLOOD ORDERABLES Final Resu lt [facility] [address] [place] [address] * (ABNORMAL) Urinalysis reflex to microscopic and culture Urine, clean voided (07/02/2024 10:20 AM BIOFUELS PLANT CONSTRUCTION WORKER) Color, ur Yellow Yellow Clarity, ur Clear [...] for uric acid stone formation. Source: [facility] Current Interpretive Data was last revised on [...] CH Urine, clean voided 07/02/2024 10:20 AM BIOFUELS PLANT CONSTRUCTION WORKER 07/02/2024 5:00 PM BIOFUELS PLANT CONSTRUCTION WORKER Kimberly Nicolas MD LAB MICROBIOLOGY - GENERAL ORDDidi LEARY Final Result Performing Organization Address [facility] Co de Phone Number [facility] [address] [facility] [place] [address] * (ABNORMAL) Albumin Creatinine Ratio, Urine (07/02/2024 10:20 AM BIOFUELS PLANT CONSTRUCTION WORKER) Albumin Ur 45.5 mg/L Comment: Interpretive Data No reference range established. Current interpretive data was last revised 2018. Creatinine Ur 73.7 mg/dL [facility] Comment: Interpretive Data No reference range established. Current interpretive data was last revised 2018. Albumin Creatinine Ratio, Ur 62(H) 1 - 29 mg/g [facility] Urine 07/02/2024 10:2 0 AM BIOFUELS PLANT CONSTRUCTION WORKER 07/02/2024 5:00 PM BIOFUELS PLANT CONSTRUCTION WORKER Servando Torre MD LAB URINE ORDERABLES Final Result Performing Organization Address [facility] Phone Number [facility] [address] [facility] [place] [address] * (ABNORMAL) Hemoglobin A1c (07/02/2024 10:20 AM BIOFUELS PLANT CONSTRUCTION WORKER) Hgb A1C 6.4(H) 4.0 - 5.6 % Estimated Average Glucose 137 mg/dL [facility] Comment: The ADA recommends reporting an estimated Average Glucose (eAG) with all Hemoglobin A1c results using the equation derived from a study of 507 normal and diabetic adults. ??Minority populations were underrepresented and children were not included. ?? (Diabetes Care 31:0019-7305, 2008). ??The eAG is not equivalent to a fasting glucose. Blood 07/02/2024 10:2 0 AM BIOFUELS PLANT CONSTRUCTION WORKER 07/02/2024 5:00 PM BIOFUELS PLANT CONSTRUCTION WORKER Servando Torre MD LAB BLOOD ORDERABLES Final Result Performing Organization Address [facility] Co de Phone Number [facility] [address] [facility] [place] [address] * Lamotrigine level (07/02/2024 10:20 AM BIOFUELS PLANT CONSTRUCTION WORKER) Pathologist [facility] Lamotrigine 9.6 3.0 - 15.0 mcg/mL [place] ref [facility] Comment: ADDITIONAL INFORMATION This test was developed and its performance characteristics determined by [facility] in a manner consistent with CLIA requirements. This test has not been cleared or approved by the U.S. Food and Drug Administration. Test Performed by: [facility] [address] [place] [address] Real Estate Branch Manager: Liu Davis Ph.D.; CLIA# [id number] Blood 07/02/2024 10:2 0 AM BIOFUELS PLANT CONSTRUCTION WORKER 07/02/2024 5:00 PM BIOFUELS PLANT CONSTRUCTION WORKER us Servando Torre MD LAB BLOOD ORDERABLES Final Result [facility] [address] Department [place] [address] [place] ref [facility] * (ABNORMAL) Lipid panel (07/02/2024 10:20 AM BIOFUELS PLANT CONSTRUCTION WORKER) Pathologist [facility] Cholesterol 190 30 - 199 mg/dL Comment: [...] [facility] MATTHEW Blood 07/02/2024 10:2 0 AM BIOFUELS PLANT CONSTRUCTION WORKER 07/02/2024 5:00 PM BIOFUELS PLANT CONSTRUCTION WORKER us Servando Torre MD LAB BLOOD ORDERABLES Final Result Performing Organization Address City/State/[facility] Co md Phone Number [facility] MATTHE[facility] [address] Department [place] [address] documented in this encounter Visit Diagnoses Diagnosis Hypertension associated with diabetes (HCC) Unspecified essential hypertension Seizure (HCC) Other convulsions Weakness generalized Other malaise and fatigue documented in this encounter Care Teams Special Education Teaching Assistant Relationship Specialty Start Date End Date Servando Torre MD [address] [facility] [address] [place] [address] PCP - General Family Medicine 06/19/22 Mariela Denton MD [address] [place] [address] Referring Physician Gastroenterology 06/19/22 Lexis Barroso OD [address] [place] [address] Digital Computer Operator 09/19/22 documented as of this encounter
--- OUTSIDE RECORDS SUMMARY | 2024-07-15 19:56 | XMS_ITS | Encounter Summary ---
Author Organization [facility] Address [address] [place] [address] Care Team Providers Care Precision Farming Specialist Name Role Phone Servando Torre MD Primary Care Provider +1- [phone] Mariela Denton MD Unavailable +1 -[phone] Lexis Barroso OD Unavailable +1- [phone] Reason for Referral * Consultation (Routine) - Closed Specialty Diagnoses / Procedures Referred By Contclemencia t Referred To Contact Orthopedic Surgery Diagnoses Knee joint cyst, right Olga Hernandez NP Phone: tel: fax: Tierney Mcdaniel MD [address] [place] [address] Phone: tel: Referral ID Status Reason Start Date Expiration Date V isits Requested Visits Authorized [id number] Closed Specialty Services Required 01/21/2024 02/19/2025 1 1 Question Answer Please select the performing region: [facility] [[id number]] Please select the performing department: [facility] [[id number]] To provider: TIERNEY MCDANIEL [[id number]] # of visits: 1 Encounter Details Date Type Department Care Team (Late st Contact Info) Description 01/21/2024 Orders Only [facility] Primary Care at [address] [address] Olga Hernandez NP [address] [place] [address] Knee joint cyst, right (Primary Dx) Social [...] on file Legal Sex Female 9:30 AM SPA MANAGER/ESTHETICIAN Gender Identity Female 04/05/2022 6:17 PM CDT [...] Primary documented in this encounter Care Teams Precision Farming Specialist Relationship Specialty Start Date End Date Servando Torre MD [address] [place] [address] PCP - General Family Medicine 06/19/22 Mariela Denton MD [address] [place] [address] Referring Physician Gastroenterology 06/19/22 Lexis Barroso OD [address] [place] [address] Lock Technician 09/19/22 documented as of this encounter
--- OUTSIDE RECORDS SUMMARY | 2024-07-15 19:56 | XMS_ITS | Encounter Summary ---
Author Organization [facility] Address [address] [place] [address] Care Team Providers Care Mechanic Recovery Name Role Phone Servando Torre MD Primary Care Provider Mariela Denton MD Unavailable +1 -[phone] Lexis Barroso OD Unavailable +1- [phone] Encounter Details Date Type Department Care Team (Late st Contact Info) Description 02/18/2024 Telephone [facility] Primary Care at [address] [address] Servando Torre MD [address] [place] [address] [address] [place] [address] Social History Tobacco Use Types [...] file Legal Sex Female 9:30 AM ANALYTICAL RESEARCH CHEMIST Gender Identity Female 04/05/2022 6:17 PM CDT Sexual Orientation Straight 04/05/2022 6: 17 PM CDT documented as of this encounter Miscellaneous Notes * Telephone Encounter - Shelia Cobb - 02/18/2024 1:12 PM CDT Opened message in error documented in this encounter Plan of Treatment Not on file documented as of this encounter Visit Diagnoses Not on filedocumented in this encounter Care Teams Mechanic Recovery Relationship Specialty Start Date End Date Servando Torre MD [facility] [address] [address] PCP - General Family Medicine 06/19/22 Mariela Denton MD [address] [place] [address] Referring Physician Gastroenterology 06/19/22 Lexis Barroso OD [address] [place] [address] Director Informatics 09/19/22 documented as of this encounter
--- OUTSIDE RECORDS SUMMARY | 2024-07-15 19:56 | XMS_ITS | Encounter Summary ---
Author Organization [facility] Healthcare Address [address] [place] [address] Care Team Providers Care Side Stitching Machine Operator Name Role Phone Servando Torre MD Primary Care Provider +1- [phone] Mariela Denton MD Unavailable +1 -[phone] Lexis Barroso OD Unavailable +1- [phone] Encounter Details Date Type Department Care Team (Late st Contact Info) Description 07/02/2024 10:15 AM MALE MODEL Lab [facility] Medical Group Outpatient Lab at [address] [address] Encounter for Medicare annual wellness [...] on file Legal Sex Female 9:30 AM MALE MODEL Gender Identity Female 04/05/2022 6:17 PM CDT Sexual Orientation Straight 04/05/2022 6: 17 PM CDT documented as of this encounter Plan of Treatment Not on file documented as of this encounter Visit Diagnoses Diagnosis Encounter for Medicare annual wellness exam- Primary documented in this encounter Care Teams Side Stitching Machine Operator Relationship Specialty Start Date End Date Servando Torre MD [address] [address] PCP - General Family Medicine 06/19/22 Mariela Denton MD [address] [place] [address] Referring Physician Gastroenterology 06/19/22 Lexis Barroso OD [address] [place] [address] Adult And Pediatric Neurologist 09/19/22 documented as of this encounter
--- OUTSIDE RECORDS SUMMARY | 2024-07-15 19:56 | XMS_ITS | Encounter Summary ---
Author Organization [facility] [place] [facility] Address [address] [place] [address] Phone Care Team Providers Care Interlocking Pavement Installer Name Role Phone Servando Torre MD Primary Care Provider +1 [phone] Mariela Denton MD Unavailable +1 -[phone] Lexis Barroso OD Unavailable +1- [phone] Encounter Details Date Type Department Care Team (Late st Contact Info) Description 05/18/2024 Orders Only [facility] Gastroenterology [address] [facility] 12th [place] [address] [place] [address] Ayala Mobley RN Chronic ulcerative colitis, unspecified [...] on file Legal Sex Female 9:30 AM OUTREACH PROFESSIONAL Gender Identity Female 04/05/2022 6:17 PM CDT [...] diseases documented in this encounter Care Teams Interlocking Pavement Installer Relationship Specialty Start Date End Date Servando Torre MD [address] [address] PCP - General Family Medicine 06/19/22 Mariela Denton MD [address] [place] [address] Referring Physician Gastroenterology 06/19/22 Lexis Barroso OD [address] [place] [address] Mine Manager 09/19/22 documented as of this encounter
--- OUTSIDE RECORDS SUMMARY | 2024-07-15 19:56 | XMS_ITS | Encounter Summary ---
Author Organization [facility] Address [address] [place] [address] Care Team Providers Care Physician Anesthesiologist Name Role Phone Servando Torre MD Primary Care Provider +1- [phone] Mariela Denton MD Unavailable +1 -[phone] Lexis Barroso OD Unavailable +1- [phone] Reason for Visit * Diagnostic Imaging (Routine) - Closed Specialty Diagnoses / Procedures Referred By Angel t Referred To Contact Diagnoses Accidental fall, subsequent encounter Procedures XR Hip Left 2+ Vw Pricilla Olguin NP [facility] [address] [address] Phone: tel: fax: [facility] Referral ID Status Reason Start Date Expiration Date Visits Re quested Visits Authorized [id number] Closed 06/18/2024 07/18/2025 1 1 Encounter Details Date Type Department Care Team (Latest Contact Info) Description 06/18/2024 2:55 PM SPORTS FITNESS AND WELLNESS DIRECTOR Ancillary Procedure [facility] Imaging at [address] [address] Accidental fall, subsequent encounter Social [...] on file Legal Sex Female 9:30 AM SPORTS FITNESS AND WELLNESS DIRECTOR Gender Identity Female 04/05/2022 6:17 PM CDT Sexual Orientation Straight 04/05/2022 6: 17 PM CDT documented as of this encounter Plan of Treatment Not on file documented as of this encounter Procedures Procedure Name Priority Date/Time Associated Diagnosis Comments XR HIP LEFT 2 OR 3 VIEWS Schedule SHIRA, Read SHIRA (Appt Today, Awaiting Results) 06/18/2024 3:04 PM SPORTS FITNESS AND WELLNESS DIRECTOR Accidental fall, subsequent encounter documented in this encounter Results * XR Hip Left 2+ Vw (06/18/2024 3:04 PM SPORTS FITNESS AND WELLNESS DIRECTOR) Anatomical Region Laterality Modality Lower Extremities, Hip, Pelvis Left D igital Radiography 06/18/2024 5:05 PM SPORTS FITNESS AND WELLNESS DIRECTOR Narrative 06/18/2024 5:13 PM SPORTS FITNESS AND WELLNESS DIRECTOR EXAM DESCRIPTION: XR HIP LEFT 2 OR [...] no change from prior CT. There is uiff-kr-guittelo multilevel degenerative endplate change with no acute [...] D: ??06/18/2024 5:13 PM T: Report ID: [id number] Reading Location: ??[id number] Procedure Note Teofilo Rand MD - 06/18/2024 [...] no change from prior CT. There is ofmx-it-bvczywha multilevel degenerative endplate change with no acute [...] signed by Teofilo ZAFAR T: Report ID: [id number] Reading Location: [place] [address] Pricilla Olguin NP IMG XR PROCEDURES Final Result documented in this encounter Visit Diagnoses Diagnosis Accidental fall, subsequent encounter documented in this encounter Care Teams Physician Anesthesiologist Relationship Specialty Start Date End Date Servando Torre MD [address] [facility] [address] [place] [address] PCP - General Family Medicine 06/19/22 Mariela Denton MD [address] [place] [address] Referring Physician Gastroenterology 06/19/22 Lexis Barroso OD [address], [place] [address] Weaving Machine Operator 09/19/22 documented as of this encounter
--- OUTSIDE RECORDS SUMMARY | 2024-07-15 19:56 | XMS_ITS | Encounter Summary ---
Author Organization [facility] Address [address] [place] [address] Phone Care Team Providers Care Access Control Specialist Name Role Phone Servando Torre MD Primary Care Provider +1 [phone] Mariela Denton MD Unavailable + -[phone] Lexis Barroso OD Unavailable +1- [phone] Encounter Details Date Type Department Care Team (Late st Contact Info) Description 06/29/2024 Orders Only [facility] [address] [facility] 6th Floor [address] [place] [address] Kimberly Nicolas MD [address] [facility] [address] [place] [address] Weakness generalized (Primary Dx) Social History Tobacco [...] file Legal Sex Female 9:30 AM HAND PLEATER Gender Identity Female 04/05/2022 6:17 PM CDT Sexual Orientation Straight 04/05/2022 6: 17 PM CDT documented as of this encounter Miscellaneous Notes * Addendum Note - Lydia Otto - 06/29/2024 11:17 AM CSTAddended by: LYDIA OTTO on: 07/02/2024 10:20 AM Modules accepted: Orders PLEATER documented in this encounter Plan of Treatment Not on file documented as of this encounter Results * (ABNORMAL) CBC with auto differential (07/02/2024 10:20 AM HAND PLEATER) WBC 7.4 3.8 - 9.9 K/cumm Hgb 13.3 11.9 - 15.5 g/dL CERNER Hct 44.2 35.6 - 45.5 % CERNER Plt 296 150 - 400 K/cumm [facility] MPV 9.4 9.1 - 12.3 fL [facility] RBC 4.79 3.90 - 5.20 M/cumm C[facility] MCV 92.3 81.3 - 96.4 fL [facility] MCH 27.8 27.1 - 33.3 pg CERNER MCHC 30.1(L) 32.3 - 35.7 g/dL [facility] RDW CV 13.0 11.1 - 14.9 % CERNER CH RDW SD 43.8 35.7 - 48.1 fL [facility] NRBC abs 0.00 0.00 - 0.01 K/cumm CERNER CH Blood 07/02/2024 10:2 0 AM HAND PLEATER 07/02/2024 5:00 PM HAND PLEATER us Kimberly Nicolas MD LAB BLOOD ORDERABLES Final Resu lt [facility] [address] Department [place] [address] * (ABNORMAL) Comprehensive metabolic panel (07/02/2024 10:20 AM HAND PLEATER) Sodium 141 135 - 145 mmol/L Potassium, [...] CERNER CH Blood 07/02/2024 10:2 0 AM HAND PLEATER 07/02/2024 5:00 PM HAND PLEATER us Kimberly Nicolas MD LAB BLOOD ORDERABLES Final Resu lt [facility] [address] Department [place] [address] * (ABNORMAL) Urinalysis reflex to microscopic and culture Urine, clean voided (07/02/2024 10:20 AM HAND PLEATER) Color, ur Yellow Yellow Clarity, ur Clear [...] for uric acid stone formation. Source: [facility] Pit My Pet Current Interpretive Data was last revised on [...] CH Urine, clean voided 07/02/2024 10:20 AM HAND PLEATER 07/02/2024 5:00 PM HAND PLEATER us Kimberly Nicolas MD LAB MICROBIOLOGY - [facility] MIA LEARY Final Result Performing Organization Address City/State/[facility] Co ma Phone Number [facility] [address] [place] [address] documented in this encounter Visit Diagnoses Diagnosis Weakness generalized- Primary Other malaise and fatigue documented in this encounter Care Teams Access Control Specialist Relationship Specialty Start Date End Date Servando Torre MD [address] [facility] [address] [place] [address] PCP - General Family Medicine 06/19/22 Mariela Denton MD [address] [place] [address] Referring Physician Gastroenterology 06/19/22 Lexis Barroso OD [address] [place] [address] Dog Barber 09/19/22 documented as of this encounter
--- OUTSIDE RECORDS SUMMARY | 2024-07-15 19:56 | XMS_ITS | Encounter Summary ---
Author Organization [facility] Healthcare Address [address] [place] [address] Care Team Providers Care Felt Carbonizer Name Role Phone Servando Torre MD Primary Care Provider +1- [phone] Mariela Denton MD Unavailable +1 -[phone] Lexis Barroso OD Unavailable +1- [phone] Encounter Details Date Type Department Care Team (Latest Contact Info) Description 04/27/2024 11:52 AM CDT - 04/27/2024 11:59 PM CDT Hospital Encounter [facility] [address] [place] [address] Localization-relate d symptomatic epilepsy and epileptic syndromes [...] file Legal Sex Female 9:30 AM MASTER OCEAN Gender Identity Female 04/05/2022 6:17 PM CDT [...] nightly 01/01/2024 vedolizumab (ENTYVIO) 300 mg recon solnIndications:Surgical Clinical Reviewer roberto ulcerative colitis, unspecified complication (HCC) Infuse 5 mL (300 mg total) into a venous catheter every 8 (eight) weeks Infused at: [facility] (OSF order in Epic under [...] CDT) Lamotrigine 6.3 3.0 - 15.0 mcg/mL [place] ref [facility] Comment: ADDITIONAL INFORMATION This test was developed and its performance characteristics determined by [facility] in a manner consistent with CLIA requirements. This test has not been cleared or approved by the U.S. Food and Drug Administration. Test Performed by: [facility] [place] [address] Street Commissioner: Liu Davis Ph.D.; CLIA# [id number] Blood 04/27/2024 11:5 2 AM CDT 04/27/2024 7:35 PM CDT us Adria Diop MD LAB BLOOD OR DERABLES Final Result Performing Organization Address City/State/[place] Co de Phone Number [facility] [address] Department [place] [address] [place] ref [facility] documented in this encounter Visit Diagnoses Diagnosis Localization-related symptomatic epilepsy and epileptic syndromes with complex partial seizures, not intractable, without status epilepticus (HCC) documented in this encounter Care Teams Felt Carbonizer Relationship Specialty Start Date End Date Servando Torre MD [address] [address] PCP - General Family Medicine 06/19/22 Mariela Denton MD [address] [place] [address] Referring Physician Gastroenterology 06/19/22 Lexis Barroso OD [address] [place] [address] Parking Lot Attendant 09/19/22 documented as of this encounter
--- OUTSIDE RECORDS SUMMARY | 2024-07-15 19:56 | XMS_ITS | Encounter Summary ---
Author Organization [facility] Healthcare Address [address] [place] [address] Care Team Providers Care Tube Puller Name Role Phone Servando Torre MD Primary Care Provider +1- [phone] Mariela Denton MD Unavailable +1 -[phone] Lexis Barroso OD Unavailable +1- [phone] Encounter Details Date Type Department Care Team (Latest Contact Info) Description 05/13/2024 12:25 PM CDT Ancillary Procedure [facility] Medical Group Imaging at [address] [address] Fall, initial encounter Social History [...] on file Legal Sex Female 9:30 AM MATTE CUTTER Gender Identity Female 04/05/2022 6:17 PM [...] D: ??05/13/2024 4:47 PM T: Report ID: [id number] Reading Location: ??[id number] Procedure Note Dylan Zuniga MD - 05/13/2024 [...] signed by Dylan CARROLL T: Report ID: [id number] Reading Location: [place] [address] Mara Almendarez OWNER OPERATOR IMG XR PROCEDURES Final Re sult documented in this encounter Visit Diagnoses Diagnosis Fall, initial encounter documented in this encounter Care Teams Tube Puller Relationship Specialty Start Date End Date Servando Torre MD [address] [facility] [address] [place] [address] PCP - General Family Medicine 06/19/22 Mariela Denton MD [address] [place] [address] Referring Physician Gastroenterology 06/19/22 Lexis Barroso OD [address] [place] [address] Employee Relations Assistant 09/19/22 documented as of this encounter
--- OUTSIDE RECORDS SUMMARY | 2024-07-15 19:56 | XMS_ITS | Encounter Summary ---
Author Organization [facility] Healthcare Address [address] [place] [address] Care Team Providers Care Product Demonstrator Name Role Phone Servando Torre MD Primary Care Provider +1- [phone] Mariela Denton MD Unavailable +1 -[phone] Lexis Barroso OD Unavailable +1- [phone] Reason for Referral * Diagnostic Imaging (Routine) - Authorized Specialty Diagnoses / Procedures [facility] Referred To Contact Diagnoses Carotid stenosis, asymptomatic, bilateral Procedures Vl US Carotids Servando Torre MD [address] [place] [address] [address] [place] [address] Phone: tel: fax: [facility] at [address] [place] [address] Phone: tel: fax: Referral ID Status Reason Start Date Expiration Date V isits Requested Visits Authorized [id number] Authorized 07/05/2024 08/04/2025 1 1 OUT MANAGER Reason for Visit * Reason Comments Medicare Annual Wellness Visit Subsequen t Medicare wellness Encounter Details Date Type Department Care Team (Late st Contact Info) Description 07/05/2024 3:00 PM ROLL OUT MANAGER Office Visit [facility] Primary Care at [place] [phone] Servando Torre MD [address] [facility] [address] [place] [address] Encounter for Medicare annual wellness exam (Primary [...] Comments Blood Pressure 128/70 07/05/2024 3:02 PM ROLL OUT MANAGER Pulse 56 07/05/2024 3:02 PM ROLL OUT MANAGER Temperature 36.3 ??C (97.3 ??F) 07/05/2024 3:02 PM CS T Respiratory Rate 18 07/05/2024 3:02 PM ROLL OUT MANAGER Oxygen Saturation 96% 07/05/2024 3:02 PM ROLL OUT MANAGER Inhaled Oxygen Concentration - - Weight 66.7 kg (147 lb) 07/05/2024 3:02 PM ROLL OUT MANAGER Height 157.5 cm (5' 2 ) 07/05/2024 3:02 PM ROLL OUT MANAGER Body Mass Index 26.89 07/05/2024 3:02 PM ROLL OUT MANAGER documented in this encounter Patient Instructions * Patient Instructions* Servando Torre MD - 07/05/2024 3:00 PM ROLL OUT MANAGER Continue work with PT and OT [...] you have any questions or concerns at [phone]. You may receive a phone call, text, MYCHART message, or e-mail asking about your care today. We would love to hear your feedback on how EXCELLENT your care wastoday! Wishing you better health, always. Dr. Torre OUT MANAGER OUT MANAGER documented in this encounter Ordered Prescriptions [...] a living will or durable power of consumer attorney?: Yes Do you have to strain [...] as Referring Physician (Gastroenterology) Lexis Barroso OD (Ceramic Tile Setter) Primary Pharmacy/DME suppliers: [address] [facility] [address] Detection of Cognitive Impairment: Mini-Co The patient [...] Improve Diet Advanced Directive Durable Power of Consumer Credit Counselor: Yes Living Will: Yes Opioid Usage Review [...] mellitus (HCC) Comments: continuing pravavstatin changed to [facility] Orders: - pravastatin (PRAVACHOL) 80 mg tablet; Take 1 tablet (80 mg total) by mouth nightly - Lipid panel; Future - Hemoglobin A1c; Future Hypertension associated with diabetes (HCC) Comments: BP is controlled continuing losartan, metoprolol Orders: - CBC with auto differential; Future - Comprehensive metabolic panel; Future - Thyroid Function [place]; Future - Hemoglobin A1c; Future Gastroesophageal reflux disease without esophagitis - CBC with auto differential; Future At risk for falls Comments: working with PT/OT at [facility]) over the last month Carotid stenosis, [...] update and summary of today's office visit. OUT MANAGER * Asif Toscano MA - 07/05/2024 3:00 PM CST Script for pravastatin has been faxed to [place]. OUT MANAGER documented in this encounter Miscellaneous Notes * Assessment & Plan Note - Servando Torre MD - 07/05/2024 3:20 PM ROLL OUT MANAGER Associated Problem(s): Encounter for Medicare annual [...] and seat belts. Return in 3 months OUT MANAGER * Addendum Note - Asif Toscano MA - 07/05/2024 3:00 PM CSTAddended by: ASIF TOSCANO on: 07/05/2024 04:22 PM Modules accepted: Orders OUT MANAGER documented in this encounter Plan [...] (HCC) Expected: 01/03/2025, Expires: 07/05/2025 Thyroid Function [place] Lab Routine Hypertension associated with diabetes (HCC) [...] as of this encounter Care Teams Product Demonstrator Relationship Specialty Start Date End Date Servando Torre MD [address] [address] PCP - General Family Medicine 06/19/22 Mariela Denton MD [address] [place] [address] Referring Physician Gastroenterology 06/19/22 Lexis Barroso OD [address] [place] [address] Ceramic Tile Setter 09/19/22 documented as of this encounter
--- OUTSIDE RECORDS SUMMARY | 2024-07-15 19:56 | XMS_ITS | Encounter Summary ---
Author Organization [facility] Healthcare Address [address] [place] [address] Care Team Providers Care Steak Sauce Maker Name Role Phone Servando Torre MD Primary Care Provider Mariela Denton MD Unavailable +1 -[phone] Lexis Barroso OD Unavailable +1- [phone] Reason for Visit * Reason Onset Date Comments Medical Question/Miscellaneous 03/30/2024 Encounter Details Date Type Department Care Team (Late st Contact Info) Description 03/30/2024 Telephone [facility] Medical Group Primary Care at [address] [address] Servando Torre MD [address] [place] [address] [address] [place] [address] Medical Question/Miscellaneous Social History Tobacco [...] on file Legal Sex Female 9:30 AM PANTRY GOODS WORKER Gender Identity Female 04/05/2022 6:17 PM [...] on filedocumented in this encounter Care Teams Steak Sauce Maker Relationship Specialty Start Date End Date Servando Torre MD [facility] [address] [address] PCP - General Family Medicine 06/19/22 Mariela Denton MD [address] [place] [address] Referring Physician Gastroenterology 06/19/22 Lexis Barroso OD [address] [place] [address] Felt Cementer 09/19/22 documented as of this encounter
--- OUTSIDE RECORDS SUMMARY | 2024-07-15 19:56 | XMS_ITS | Encounter Summary ---
Author Organization [facility] Healthcare Address [address] [place] [address] Care Team Providers Care Manager Science Name Role Phone Servando Torre MD Primary Care Provider Mariela Denton MD Unavailable +1 -[phone] Lexis Barroso OD Unavailable +1- [phone] Reason for Visit * Reason Onset Date Comments Medical Question/Miscellaneous 04/23/2024 Encounter Details Date Type Department Care Team (Late st Contact Info) Description 04/23/[address] [facility] Medical Group Primary Care at [address] [address] Servando Torre MD [address] [place] [address] [address] [place] [address] Medical Question/Miscellaneous Social History Tobacco [...] on file Legal Sex Female 9:30 AM VENDOR ANALYST Gender Identity Female 04/05/2022 6:17 PM [...] filedocumented in this encounter Care Teams Manager Science Relationship Specialty Start Date End Date Servando Torre MD [address] [address] PCP - General Family Medicine 06/19/22 Mariela Denton MD [facility] [address] [place] [address] Referring Physician Gastroenterology 06/19/22 Lexis Barroso OD [address] [place] [address] Machine Candle Molder 09/19/22 documented as of this encounter
--- OUTSIDE RECORDS SUMMARY | 2024-07-15 19:56 | XMS_ITS | Encounter Summary ---
Author Organization [facility] Healthcare Address [address] [place] [address] Care Team Providers Care Club Lounge Attendant Name Role Phone Servando Torre MD Primary Care Provider Mariela Denton MD Unavailable +1 -[phone] Lexis Barroso OD Unavailable +1- [phone] Reason for Visit * Reason Comments Follow-up 3 month f/u Encounter Details Date Type Department Care Team (Late st Contact Info) Description 01/01/2024 2:00 PM CDT Office Visit [facility] Medical Group Primary Care at [address] [address] Servando Torre MD [address] [place] [address] [address] [place] [address] Hypertension associated with diabetes (HCC) [...] on file Legal Sex Female 9:30 AM PRINCIPAL PROGRAMMER Gender Identity Female 04/05/2022 6:17 PM CDT [...] venous catheter every8 (eight) weeks Infused at: [facility] (OSF order in Epic under 'Procedures' [...] LAB BLOOD ORDERABLES Final Result [facility] [address] Department [place] [address] * (ABNORMAL) Hemoglobin A1c (03/30/2024 [...] children were not included. ?? (Diabetes Care 31:0601-5463, 2008). ??The eAG is not equivalent to a fasting glucose. Blood 03/30/2024 9:26 AM CDT 03/30/2024 4:55 PM CDT Servando Torre MD LAB BLOOD ORDERABLES Final Result [facility] [address] Department [place] [address] * Comprehensive metabolic panel (03/30/2024 9:26 AM [...] BLOOD ORDERABLES Final Result Performing Organization Address City/[facility]/ZIP Co de Phone Number [facility] MAT[facility]W [address] [place] [address] * (ABNORMAL) CBC with auto differential (03/30/2024 9:26 AM CDT) [facility] WBC 8.4 3.8 - 9.9 K/cumm Hgb [...] BLOOD ORDERABLES Final Result Performing Organization Address City/[facility]/ZIP Co de Phone Number [facility]LE[facility] MATTHEW [address] Department of [employer] [place], [place] [id number] * (ABNORMAL) POCT hemoglobin A1c (01/01/2024 2:39 [...] week added in this encounter Care Teams Club Lounge Attendant Relationship Specialty Start Date End Date Servando Torre MD [facility] [address] [place] [address] PCP - General Family Medicine 06/19/22 Mariela Denton MD [address] [place] [address] Referring Physician Gastroenterology 06/19/22 Lexis Barroso OD [address] [place] [address] Substation Superintendent 09/19/22 documented as of this encounter
--- OUTSIDE RECORDS SUMMARY | 2024-07-15 19:56 | XMS_ITS | Encounter Summary ---
Author Organization [facility] Address [address] [place] [address] Phone Care Team Providers Care Allergy Nurse Name Role Phone Servando Torre MD Primary Care Provider +1 [phone] aMriela Denton MD Unavailable +1 -[phone] Lexis Barroso OD Unavailable +1- [phone] Encounter Details Date Type Department Care Team [...] on file Legal Sex Female 9:30 AM CLINIC LEAD Gender Identity Female 04/05/2022 6:17 PM CDT [...] on filedocumented in this encounter Care Teams Allergy Nurse Relationship Specialty Start Date End Date Servando Torre MD [facility] [address] PCP - General Family Medicine 06/19/22 Mariela Denton MD [facility] [address] [place] [address] Referring Physician Gastroenterology 06/19/22 Lexis Barroso OD [address] [place] [address] Child And Family Services Specialist 09/19/22 documented as of this encounter
--- OUTSIDE RECORDS SUMMARY | 2024-07-15 19:56 | XMS_ITS | Encounter Summary ---
Author Organization [facility] Address [address] [place] [address] Phone Care Team Providers Care Childcare Director Name Role Phone Servando Torre MD Primary Care Provider +1 [phone] Mariela Denton MD Unavailable +1 -[phone] Lexis Barroso OD Unavailable +1- [phone] Encounter Details Date Type Department Care Team (Late st Contact Info) Description 05/05/2024 3:45 PM CDT Office Visit [facility] Gastroenterology [address] [facility] 12th [place] [address] [place] [address] Josué Cook MD [address] [facility] [address] [place], [place] [id number] Chronic ulcerative colitis, unspecified complication (HCC) (Primary [...] on file Legal Sex Female 9:30 AM MANUFACTURING TECH Gender Identity Female 04/05/2022 6:17 PM [...] documented in this encounter Progress Notes * Jousé Cook MD - 05/05/2024 3:45 PM CDT [...] up in April 2025 Josué Cook MD Information Resources Manageradmissions counselor Department of Gastroenter[facility] FACTURING TECH documented in this encounter Plan of Treatment Not on file documented as of this encounter Visit Diagnoses Diagnosis Chronic ulcerative colitis, unspecified complication (HCC)- Primary documented in this encounter Care Teams Childcare Director Relationship Specialty Start Date End Date Servando Torre MD [address] [facility] [address] [place] [address] PCP - General Family Medicine 06/19/22 Mariela Denton MD [address] [place] [address] Referring Physician Gastroenterology 06/19/22 Lexis Barroso OD [address] [place] [address] Chlorine Plant Operator 09/19/22 documented as of this encounter
--- OUTSIDE RECORDS SUMMARY | 2024-07-15 19:56 | XMS_ITS | Encounter Summary ---
Author Organization [facility] Healthcare Address [address] [place] [address] Care Team Providers Care Card Stripper Name Role Phone Servando Torre MD Primary Care Provider +1- [phone] Mariela Denton MD Unavailable +1 -[phone] Lexis Barroso OD Unavailable +- [phone] Reason for Visit * Reason Comments Knee [...] Description 05/13/2024 12:00 PM CDT Office Visit [facility] Medical Group Convenient Care at [address] [address] Mara Almendarez NP [address] [place] [address] [address] [place] [address] Fall, initial encounter (Primary Dx); [...] file Legal Sex Female 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 Thank you for choosing [facility]! It was my pleasure to see you today, I hope you feel better soon! Mara Almendarez INSTRUMENT OPERATOR * Attachments The following attachments cannot be sent through Care Everywhere. * Knee Pain (AfterCare(R) Instructions(ER/ED)) (Barbadian) * Head Injury (AfterCare(R) Instructions(ER/ED)) ([place]) documented in this encounter Progress Notes * Mara Almendarez, INTERNATIONAL TRAVEL CONSULTANT - 05/13/2024 12:00 PM CDT Images from [...] catheter every 8 (eight) weeks Infused at: [facility] (OSF order in Epic under 'Procedures' [...] D: ??05/13/2024 4:47 PM T: Report ID: [id number] Reading Location: ??[id number] Procedure Note Dylan Zuniga MD - 05/13/2024 [...] signed by Dylan CARROLL T: Report ID: [id number] Reading Location: [id number] Mara Almendarez INTERNATIONAL TRAVEL CONSULTANT IMG XR PROCEDURES Final Re sult documented [...] 05/19/2024 added in this encounter Care Teams Card Stripper Relationship Specialty Start Date End Date Servando Torre MD [address] [facility] [address] [place] [address] PCP - General Family Medicine 06/19/22 Mariela Denton MD [address] [place] [address] Referring Physician Gastroenterology 06/19/22 Lexis Barroso OD [address] [place] [address] Senior Producer 09/19/22 documented as of this encounter
--- OUTSIDE RECORDS SUMMARY | 2024-07-15 19:56 | XMS_ITS | Encounter Summary ---
Author Organization [facility] Healthcare Address [address] [place] [address] Care Team Providers Care Cabinet Mounter Name Role Phone Servando Torre MD Primary Care Provider Mariela Denton MD Unavailable +1 -[phone] Lexis Barroso OD Unavailable +1- [phone] Reason for Visit * Reason Onset Date Comments Recommendation Request 01/20/2024 Encounter Details Date Type Department Care Team (Late st Contact Info) Description 01/20/2024 Telephone [facility] Primary Care at [address] [address] Servando Torre MD [address] [place] [address] [address] [place] [address] Recommendation Request Social History Tobacco [...] on file Legal Sex Female 9:30 AM 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 Patient will have to go to Ortho. Does message need to be routed? Yes-Action Needed documented in this encounter Plan of Treatment Not on file documented as of this encounter Visit Diagnoses Not on filedocumented in this encounter Care Teams Cabinet Mounter Relationship Specialty Start Date End Date Servando Torre MD [address] [address] PCP - General Family Medicine 06/19/22 Mariela Denton MD [address] [place] [address] Referring Physician Gastroenterology 06/19/22 Lexis Barroso OD [address] [place] [address] Elastic Yarn Twister 09/19/22 documented as of this encounter
--- OUTSIDE RECORDS SUMMARY | 2024-07-15 19:56 | XMS_ITS | Encounter Summary ---
Author Organization [facility] Healthcare Address [address] [place] [address] Care Team Providers Care Automatic Drilling Machine Operator Name Role Phone Servando Torre MD Primary Care Provider +1- [phone] Mariela Denton MD Unavailable +1 -[phone] Lexis Barroso OD Unavailable +1- [phone] Reason for Referral * Consultation (Routine) - Closed Specialty Diagnoses / Procedures Referred By Contclemencia t Referred To Contact General Surgery Diagnoses Cyst of anterior horn of lateral meniscus of right knee Olga Hernandez NP Phone: tel: fax: Marcell Brown MD [address] [place] [address] [address] Phone: tel: fax: Referral ID Status Reason Start Date Expiration Date V isits Requested Visits Authorized [id number] Closed Specialty Services Required 01/19/2024 02/17/2025 1 1 Question Answer Please select the performing region: [facility] [[id number]] Please select the performing department: [facility] SURGERY [[id number]] Comments [place] location Reason for Visit * Reason Comments Mass Pt is c/o 'bump' on right knee. It is painful. Appeared about 1 wk ago. 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 Nurses at her [place] facility stated they could feel fluid behind the bump(believe its a cyst). No other complaints or symptoms associated Knee Pain The incident occurred 5 to 7 days ago. The incident occurred at a [facility]. There was no injurymechanism. The pain is [...] catheter every 8 (eight) weeks Infused at: [facility] ([facility] order in [facility] under 'Procedures' tab)., Disp: 1 each, [...] Primary documented in this encounter Care Teams Automatic Drilling Machine Operator Relationship Specialty Start Date End Date Servando Torre MD [address] [address] PCP - General Family Medicine 06/19/22 Mariela Denton MD [address] [place] [address] Referring Physician Gastroenterology 06/19/22 Lexis Barroso OD [address], [place] [address] Slime Plant Operator Helper 09/19/22 documented as of this encounter
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
--- OUTSIDE RECORDS SUMMARY | 2024-07-15 19:56 | XMS_ITS | Encounter Summary ---
Author Organization [facility] Healthcare Address [address] [place] [address] Care Team Providers Care Crossing Supervisor Name Role Phone Servando Torre MD Primary Care Provider +1- [phone] Mariela Denton MD Unavailable +1 -[phone] Lexis Barroso OD Unavailable +1- [phone] Reason for Visit * Diagnostic Imaging (Routine) - Pending Review Specialty Diagnoses / Procedures Referred By Contac t Referred To Contact Diagnoses Accidental fall, subsequent encounter Procedures XR Spine Lumbar 2 or 3 Views XR Spine Lumbar 4 or More Views Pircilla Olguin NP [address] [place] [address] Phone: tel: fax: [facility] Referral ID Status Reason Start Date Expiration Date V isits Requested Visits Authorized [id number] Pending Review 06/18/2024 07/18/2025 1 1 Encounter Details Date Type Department Care Team (Latest Contact Info) Description 06/18/2024 3:00 PM HAT CONE INSPECTOR Ancillary Procedure [facility] Imaging at [address] [address] Accidental fall, subsequent encounter Social [...] on file Legal Sex Female 9:30 AM HAT CONE INSPECTOR Gender Identity Female 04/05/2022 6:17 PM CDT Sexual Orientation Straight 04/05/2022 6: 17 PM CDT documented as of this encounter Plan of Treatment Not on file documented as of this encounter Procedures Procedure Name Priority Date/Time Associated Diagnosis Comments XR SPINE LUMBAR 2 OR 3 VIEWS Schedule SHIRA, Read SHIRA (Appt Today, Awaiting Results) 06/18/2024 3:04 PM HAT CONE INSPECTOR Accidental fall, subsequent encounter documented in this encounter Results * XR Spine Lumbar 2 or 3 Views (06/18/2024 3:04 PM HAT CONE INSPECTOR) Anatomical Region Laterality Modality Spine N/A Digital Radiogra phy 06/18/2024 5:05 PM HAT CONE INSPECTOR Narrative 06/18/2024 5:13 PM HAT CONE INSPECTOR EXAM DESCRIPTION: XR HIP LEFT 2 OR [...] no change from prior CT. There is mswd-zv-msgkijaj multilevel degenerative endplate change with no acute [...] D: ??06/18/2024 5:13 PM T: Report ID: [id number] Reading Location: ??[id number] Procedure Note Teofilo Rand MD - 06/18/2024 [...] no change from prior CT. There is filx-nv-sajdsbte multilevel degenerative endplate change with no acute [...] signed by Teofilo ZAFAR T: Report ID: [id number] Reading Location: [place] [address] Pricilla Olguin FRACTIONATING STILL OPERATOR IMG XR PROCEDURES Final Result documented in this encounter Visit Diagnoses Diagnosis Accidental fall, subsequent encounter documented in this encounter Care Teams Crossing Supervisor Relationship Specialty Start Date End Date Servando Torre MD [address] [address] PCP - General Family Medicine 06/19/22 Mariela Denton MD [address] [place] [address] Referring Physician Gastroenterology 06/19/22 Lexis Barroso OD [address] [place] [address] Test Equipment Mechanic 09/19/22 documented as of this encounter
--- OUTSIDE RECORDS SUMMARY | 2024-07-15 19:56 | XMS_ITS | Encounter Summary ---
Author Organization [facility] Healthcare Address [address] [place] [address] Care Team Providers Care Professor Of Medicine Name Role Phone Servando Torre MD Primary Care Provider Mariela Denton MD Unavailable [phone] -[phone] Lexis Barroso OD Unavailable +1- [phone] Reason for Visit * Reason Onset Date Comments Medical Question/Miscellaneous 05/28/2024 Encounter Details Date Type Department Care Team (Late st Contact Info) Description 05/28/2024 Telephone [facility] Medical Group Primary Care at [address] [address] Servando Torre MD [address] [place] [address] [address] [place] [address] Medical Question/Miscellaneous Social History Tobacco [...] on file Legal Sex Female 9:30 AM LIPSTICK MOLDER Gender Identity Female 04/05/2022 6:17 PM [...] in this encounter Care Teams Professor Of Medicine Relationship Specialty Start Date End Date Servando Torre MD [address] [address] PCP - General Family Medicine 06/19/22 Mariela Denton MD [address] [place] [address] Referring Physician Gastroenterology 06/19/22 Lexis Barroso OD [address] [place] [address] Airport Clerk 09/19/22 documented as of this encounter
--- OUTSIDE RECORDS SUMMARY | 2024-07-15 19:57 | XMS_ITS | Encounter Summary ---
Author Organization [facility] Healthcare Address [address] [place] [address] Care Team Providers Care Zoology Teacher Name Role Phone Servando Torre MD Primary Care Provider +1- [phone] Mariela Denton MD Unavailable +1 -[phone] Lexis Barroso OD Unavailable +1- [phone] Encounter Details Date Type Department Care Team (Late st Contact Info) Description 09/30/2023 2:00 PM BOARDING SPECIALIST Lab [facility] Outpatient Lab at [address] [address] Diabetes mellitus (HCC) (Primary Dx); [...] on file Legal Sex Female 9:30 AM BOARDING SPECIALIST Gender Identity Female 04/05/2022 6:17 PM [...] (HCC) documented in this encounter Care Teams Zoology Teacher Relationship Specialty Start Date End Date Servando Torre MD [address] [address] PCP - General Family Medicine 06/19/22 Mariela Denton MD [address] [place] [address] Referring Physician Gastroenterology 06/19/22 Lexis Barroso OD [address] [place] [address] Sample Finisher 09/19/22 documented as of this encounter
--- OUTSIDE RECORDS SUMMARY | 2024-07-15 19:57 | XMS_ITS | Encounter Summary ---
Author Organization [facility] Healthcare Address [address] [place] [address] Care Team Providers Care Manager Cafe Name Role Phone Servando Torre MD Primary Care Provider +1- [phone] Mariela Denton MD Unavailable +1 -[phone] Lexis Barroso OD Unavailable +1- [phone] Reason for Visit * Reason Onset Date Comments Medication Request 08/29/2023 Encounter Details Date Type Department Care Team (Late st Contact Info) Description 08/29/2023 Telephone [facility] Primary Care at [address] [address] Servando Torre MD [address] [place] [address] [address] [place] [address] Medication Request Social History Tobacco [...] on file Legal Sex Female 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 No BORDER ASSEMBLER documented in this encounter Plan of Treatment Not on file documented as of this encounter Visit Diagnoses Not on filedocumented in this encounter Care Teams Manager Cafe Relationship Specialty Start Date End Date Servando Torre MD [address] [address] PCP - General Family Medicine 06/19/22 Mariela Denton MD [address] [place] [address] Referring Physician Gastroenterology 06/19/22 Lexis Barroso OD [address] [place] [address] Lease Administration Analyst 09/19/22 documented as of this encounter
--- OUTSIDE RECORDS SUMMARY | 2024-07-15 19:57 | XMS_ITS | Encounter Summary ---
Author Organization [facility] Healthcare Address [address] [place] [address] Care Team Providers Care Record Librarian Name Role Phone Servando Torre MD Primary Care Provider +1- [phone] Mariela Denton MD Unavailable +1 -[phone] Lexis Barroso OD Unavailable +1- [phone] Encounter Details Date Type Department Care Team (Latest Contact Info) Description 09/30/2023 2:03 PM BICYCLE INSPECTOR - 09/30/2023 11:59 PM BICYCLE INSPECTOR Hospital Encounter [facility] [address] [place] [address] Hypertension associated with type 2 diabetes [...] file Legal Sex Female 9:30 AM BICYCLE INSPECTOR Gender Identity Female 04/05/2022 6:17 PM [...] catheter every 8 (eight) weeks Infused at: [facility] (OSF order in Epic under [...] Diagnosis Comments EGFR Routine 09/30/2023 2:03 PM BICYCLE INSPECTOR Hypertension associated with type 2 diabetes mellitus (HCC) DIFFERENTIAL AUTO Routine 09/30/2023 2:0 3 PM BICYCLE INSPECTOR Hypertension associated with type 2 diabetes mellitus (HCC) Gastroesophageal reflux disease without esophagitis THYROID FUNCTION CASCADE Routine 09/30/2023 2:03 PM BICYCLE INSPECTOR Hypertension associated with type 2 diabetes mellitus (HCC) CBC WITH AUTO DIFFERENTIAL Routine 09/30/2023 2:03 PM BICYCLE INSPECTOR Hypertension associated with type 2 diabetes mellitus (HCC) Gastroesophageal reflux disease without esophagitis HEMOGLOBIN A1C Routine 09/30/2023 2:03 PM BICYCLE INSPECTOR Hypertension associated with type 2 diabetes mellitus (HCC) LIPID PANEL Routine 09/30/2023 2:03 PM BICYCLE INSPECTOR Mixed hyperlipidemia COMPREHENSIVE METABOLIC PANEL Routine 09/30/2023 2:03 PM BICYCLE INSPECTOR Hypertension associated with type 2 diabetes mellitus (HCC) documented in this encounter Results * eGFR (09/30/2023 2:03 PM BICYCLE INSPECTOR) [facility] eGFR 64 mL/min/1. 73 m2 AILEEN MATTHEW [...] last reviewed 2021. Blood 09/30/2023 2:03 PM BICYCLE INSPECTOR 09/30/2023 8:19 PM BICYCLE INSPECTOR us Servando Torre MD LAB BLOOD ORDERABLES Final Result [facility] [address] Department [place] [address] * Differential, auto (09/30/2023 2:03 PM BICYCLE INSPECTOR) Neutrophil abs 5.7 1.5 - 6.5 K/cumm [facility] Imm gran abs 0.0 0.0 - 0.1 K[facility]cumm [facility] Lymphocyte abs 1.9 0.8 - 3.3 K/cumm [facility] Monocyte abs 0.8 0.2 - 0.8 K/cumm [facility] Eosinophil abs 0.2 0.0 - 0.5 K/cumm [facility] Basophil abs 0.0 0.0 - 0.1 K/cumm [facility] Neutrophil pct 66.1 % [facility] Comment: Interpretive Data Percent cell count reference ranges are not reported, since discordance with absolute values may lead to misinterpretation of CBC data. Current Interpretive Data was last revised on 2017. Imm gran pct 0.3 % [facility] Comment: Interpretive Data Percent cell count reference ranges are not reported, since discordance with absolute values may lead to misinterpretation of CBC data. Current Interpretive Data was last revised on 2017. Lymphocyte pct 21.7 % [facility] Comment: Interpretive Data Percent cell count reference ranges are not reported, since discordance with absolute values may lead to misinterpretation of CBC data. Current Interpretive Data was last revised on 2017. Monocyte pct 8.8 % [facility] Comment: Interpretive Data Percent cell [...] revised on 2017. Blood 09/30/2023 2:03 PM BICYCLE INSPECTOR 09/30/2023 8:09 PM BICYCLE INSPECTOR Servando Torre MD LAB BLOOD ORDERABLES Final Result Performing Organization Address [facility] Co de Phone Number AILEEN [address] [employer] [place] [address] * Thyroid Function [place] (09/30/2023 2:03 PM BICYCLE INSPECTOR) TSH 0.72 0.30 - 4.20 mcIUnit/mL AILEEN Blood 09/30/2023 2:03 PM BICYCLE INSPECTOR 09/30/2023 8:09 PM BICYCLE INSPECTOR Result [facility] Servando Torre MD LAB BLOOD ORDERABLES Final Result Performing Organization Address [facility] Co de Phone Number [facility] [address] Department [place] [employer] [place] [address] * (ABNORMAL) Hemoglobin A1c (09/30/2023 2:03 PM BICYCLE INSPECTOR) Hgb A1C 6.3(H) 4.0 - 5.6 % AILEEN Estimated Average Glucose 134 mg/dL AILEEN Comment: The ADA recommends reporting an estimated Average Glucose (eAG) with all Hemoglobin A1c results using the equation derived from a study of 507 normal and diabetic adults. ??Minority populations were underrepresented and children were not included. ?? (Diabetes Care 31:8200-0457, 2008). ??The eAG is not equivalent to a fasting glucose. Blood 09/30/2023 2:03 PM BICYCLE INSPECTOR 09/30/2023 8:09 PM BICYCLE INSPECTOR us Servando Torre MD LAB BLOOD ORDERABLES Final Result Performing Organization Address City/State/ZIP [facility] Phone Number AILEEN [address] Department [place] [address] * Lipid panel (09/30/2023 2:03 PM BICYCLE INSPECTOR) Cholesterol 191 30 - 199 mg/dL AILEEN [...] 3 [facility] Blood 09/30/2023 2:03 PM BICYCLE INSPECTOR 09/30/2023 8:09 PM BICYCLE INSPECTOR us Servando Torre MD LAB BLOOD ORDERABLES Final Result [facility] [address] Department [place] [address] * (ABNORMAL) Comprehensive metabolic panel (09/30/2023 2:03 PM BICYCLE INSPECTOR) Sodium 141 135 - 145 mmol/L [facility] Potassium, pl 4.5 3.3 - 4.9 mmol/L [facility] Chloride 103 97 - 110 mmol/L [facility] CO2 26 22 - 32 mmol/L [facility] Anion gap 12 2 - 15 mmol/L [facility] BUN 22 6 - 25 mg/dL [facility] Creatinine 0.91 0.60 - 1.10 [...] Units/L [facility] Blood 09/30/2023 2:03 PM BICYCLE INSPECTOR 09/30/2023 8:09 PM BICYCLE INSPECTOR Servando Torre MD LAB [place] [address] [address] Department [place] [address] * (ABNORMAL) CBC with auto differential (09/30/2023 2:03 PM BICYCLE INSPECTOR) WBC 8.6 3.8 - 9.9 K/cumm [facility] [...] K/cumm [facility] Blood 09/30/2023 2:03 PM BICYCLE INSPECTOR 09/30/2023 8:09 PM BICYCLE INSPECTOR Servando Torre MD LAB BLOOD ORDERABLES Final Result AILEEN [address] Department [place] [address] documented in this encounter Visit Diagnoses Diagnosis Hypertension associated with type 2 diabetes mellitus (HCC) Gastroesophageal reflux disease without esophagitis Esophageal reflux Mixed hyperlipidemia documented in this encounter Care Teams Record Librarian Relationship Specialty Start Date End Date Servando Torre MD [facility] [address] PCP - General Family Medicine 06/19/22 Mariela Denton MD [facility] [address] [place] [address] [place] [address] Referring Physician Gastroenterology 06/19/22 Lexis Barroso OD [address] [place] [address] Area Cleaner 09/19/22 documented as of this encounter
--- OUTSIDE RECORDS SUMMARY | 2024-07-15 19:57 | XMS_ITS | Encounter Summary ---
Author Organization [facility] Healthcare Address [address] [place] [address] Care Team Providers Care News Writer Name Role Phone Servando Torre MD Primary Care Provider +1- [phone] Mariela Denton MD Unavailable +1 -[phone] Lexis Barroso OD Unavailable +1- [phone] Encounter Details Date Type Department Care Team (Latest Contact Info) Description 08/28/2023 11:00 AM TIMBER INSPECTOR Ancillary Procedure [facility] Imaging at [address] [address] Chronic pain of both knees [...] on file Legal Sex Female 9:30 AM TIMBER INSPECTOR Gender Identity Female 04/05/2022 6:17 PM CDT Sexual Orientation Straight 04/05/2022 6: 17 PM CDT documented as of this encounter Plan of Treatment Not on file documented as of this encounter Procedures Procedure Name Priority Date/Time Associated Diagnosis Comments XR KNEE BILATERAL 4 OR MORE VIEWS Schedule Routine, Read Routine (OP Routine) 08/28/2023 11:01 AM TIMBER INSPECTOR Chronic pain of both knees documented in this encounter Results * XR Knee Bilateral 4 or More Views (08/28/2023 11:01 AM TIMBER INSPECTOR) Anatomical Region Laterality Modality Lower Extremities, Knee Digital Radiography Narrative 08/28/2023 1:05 PM TIMBER INSPECTOR Weightbearing views of the bilateral knee are [...] knees documented in this encounter Care Teams News Writer Relationship Specialty Start Date End Date Servando Torre MD [address] [facility] [address] [place] [address] PCP - General Family Medicine 06/19/22 Mariela Denton MD [address] [place] [address] Referring Physician Gastroenterology 06/19/22 Lexis Barroso OD [address] [address] Assistant Boiler Operator 09/19/22 documented as of this encounter
--- OUTSIDE RECORDS SUMMARY | 2024-07-15 19:57 | XMS_ITS | Encounter Summary ---
Author Organization [facility] Healthcare Address [address] [place] [address] Care Team Providers Care Vrt Mechanic Name Role Phone Servando Torre MD Primary Care Provider [phone]- [phone] Mariela Denton MD Unavailable +1 -[phone] Lexis Barroso OD Unavailable +1- [phone] Reason for Visit * Reason Comments Follow-up Event monitor Syncope Bradycardia Encounter Details Date Type Department Care Team (Latest Contact Info) Description 09/19/2023 11:30 AM METAL MINER BLASTING Office Visit [facility] Medical Group Cardiology at [address] [place] [id number] Mesfin Rosenthal MD [address] [facility] [address] [place] [address] Hypertension associated with diabetes (HCC) [...] on file Legal Sex Female 9:30 AM METAL MINER BLASTING Gender Identity Female 04/05/2022 6:17 PM CDT Sexual Orientation Straight 04/05/2022 6: 17 PM CDT documented as of this encounter Last Filed Vital Signs Vital Sign Reading Time Taken Comments Blood Pressure 114/60 09/19/2023 11:33 AM METAL MINER BLASTING Pulse 62 09/19/2023 11:33 AM METAL MINER BLASTING Temperature - - Respiratory Rate - - Oxygen Saturation 96% 09/19/2023 11:33 AM METAL MINER BLASTING Inhaled Oxygen Concentration - - Weight 66.8 kg (147 lb 4.8 oz) 09/19/2023 11:33 AM METAL MINER BLASTING Height 157.5 cm (5' 2 ) 09/19/2023 11:33 AM METAL MINER BLASTING Body Mass Index 26.94 09/19/2023 11:33 AM METAL MINER BLASTING documented in this encounter Progress Notes * [...] seizure disorder which is a likely contributor. color television console monitor asdiscussed at length without significant tachy or [...] 06/27/23 Initial visit: On 01/30/23 while in [place] during family reunion had a seizure at [address] elevation dx with suspected seizure in [place]. Brain MRI some spot noted unclear etiology [...] spells like initiallynoted. She had Echo in [place] and at [place]. No mention or issues of sig arrhythmias [...] capsule OneTouch Delica Plus Lancet 33 gauge [facility] OneTouch Ultra Test strip pantoprazole DR (PROTONIX) [...] consistent with small-vessel ischemic disease. 08/01/23 AMBULATORY CROSSING GUARD REPORT Type of monitor : 30 day bus monitor Date of the study/Enrollment period: June [...] medical record, and bloodwork/lipids. Dania Rosenthal MD, [facility] This note is dictated and transcribed using [employer]ffic[employer] Direct Software. Flooring Machine Operator variancesmay occur. Despite proofreading, typographical errors may occur. L MINER BLASTING documented in this encounter Plan of Treatment Not on file documented as of this encounter Visit Diagnoses Diagnosis Hypertension associated with diabetes (HCC)- Primary Unspecified essential hypertension Mixed diabetic hyperlipidemia associated with type 2 diabetes mellitus (HCC) Syncope, unspecified syncope type Bradycardia Other specified cardiac dysrhythmias At risk for falls Personal history of fall documented in this encounter Care Teams Vrt Mechanic Relationship Specialty Start Date End Date Servando Torre MD [facility] [address] PCP - General Family Medicine 06/19/22 Mariela Denton MD [address] [place] [address] Referring Physician Gastroenterology 06/19/22 Lexis Barroso OD [address] [place] [address] Sled Maker 09/19/22 documented as of this encounter
--- OUTSIDE RECORDS SUMMARY | 2024-07-15 19:57 | XMS_ITS | Encounter Summary ---
Author Organization [facility] Healthcare Address [address] [place] [address] Care Team Providers Care Auto Electrical Technician Name Role Phone Servando Torre MD Primary Care Provider Mariela Denton MD Unavailable +1 -[phone] Lexis Barroso OD Unavailable +1- [phone] Reason for Visit * Reason Onset Date Comments Medical Records Request 07/31/2023 Encounter Details Date Type Department Care Team (Late st Contact Info) Description 07/31/2023 Telephone [facility] Medical Group Primary Care at [address] [address] Servando Torre MD [address] [place] [address] [address] [place] [address] Medical Records Request Social History [...] file Legal Sex Female 9:30 AM SUPERVISOR LABORATORY ANIMAL FACILITY Gender Identity Female 04/05/2022 6:17 PM CDT Sexual Orientation Straight 04/05/2022 6: 17 PM CDT documented as of this encounter Miscellaneous Notes * Telephone Encounter - Regina Toscano MA - 07/31/2023 12:59 PM SUPERVISOR LABORATORY ANIMAL FACILITY Office notes have been faxed [facility] * Telephone Encounter - Zenaida Bond - 07/31/2023 11:21 AM CST Medical Records Request Request Type: Records Request Practice Will Complete What records are being requested:last 2 most recent Office Visit notes Who will the records be sent to (if being sent to another doctor, list the doctor's name and specialty)? [facility] Date Needed: SHIRA Delivery Method: Fax Fax number to use for return of records: [phone] Attn. Nursing Additional Comments/Concerns: None Does the message need to be routed? Yes-Action Needed [facility] documented in this encounter Plan of Treatment Not on file documented as of this encounter Visit Diagnoses Not on filedocumented in this encounter Care Teams Auto Electrical Technician Relationship Specialty Start Date End Date Servando Torre MD [address] [address] PCP - General Family Medicine 06/19/22 Mariela Denton MD [address] [place] [address] Referring Physician Gastroenterology 06/19/22 Lexis Barroso OD [address] [place] [address] Musculoskeletal Physician 09/19/22 documented as of this encounter
--- OUTSIDE RECORDS SUMMARY | 2024-07-15 19:57 | XMS_ITS | Encounter Summary ---
Author Organization [facility] Healthcare Address [address] [place] [address] Care Team Providers Care Lockstitch Coat Joiner Name Role Phone Servando Torre MD Primary Care Provider [phone]- [phone] Mariela Denton MD Unavailable +1 -[phone] Lexis Barroso OD Unavailable +1- [phone] Encounter Details Date Type Department Care Team (Late st Contact Info) Description 08/22/2023 Telephone [facility] Medical Group Primary Care at [address] [address] Regina Loo MA Social History [...] on file Legal Sex Female 9:30 AM MEDICAL BILLING REPRESENTATIVE Gender Identity Female 04/05/2022 6:17 PM [...] Regina Loo MA - 08/22/2023 12:50 PM MEDICAL BILLING REPRESENTATIVE Refill request from [facility] for Metoprolol Tartrate 50mg tab Last refill 02/20/23 Last ov 08/07/23 CAL BILLING REPRESENTATIVE documented in this encounter Plan of [...] documented as of this encounter Care Teams Lockstitch Coat Joiner Relationship Specialty Start Date End Date Servando Torre MD [facility] [address] PCP - General Family Medicine 06/19/22 Mariela Denton MD [address] [place] [address] Referring Physician Gastroenterology 06/19/22 Lexis Barroso OD [address] [place] [address] Pick Pulling Machine Tender 09/19/22 documented as of this encounter
--- OUTSIDE RECORDS SUMMARY | 2024-07-15 19:57 | XMS_ITS | Encounter Summary ---
Author Organization [facility] Healthcare Address [address] [place] [address] Care Team Providers Care Client Technologies Analyst Name Role Phone Servando Torre MD Primary Care Provider Mariela Denton MD Unavailable [phone] [phone] Lexis Barroso OD Unavailable +1- [phone] Reason for Visit * Reason Onset Date Comments call back for diagnosis code 06/25/2023 Encounter Details Date Type Department Care Team (Late st Contact Info) Description 06/25/2023 Telephone [facility] Medical Group Primary Care at [address] [address] Servando Torre MD [address] [place] [address] [address] [place] [address] call back for diagnosis code [...] on file Legal Sex Female 9:30 AM FORMING YARDAGE CONTROL OPERATOR Gender Identity Female 04/05/2022 6:17 PM CDT Sexual Orientation Straight 04/05/2022 6: 17 PM CDT documented as of this encounter Miscellaneous Notes * Telephone Encounter - Regina Loo MA - 06/30/2023 12:22 PM FORMING YARDAGE CONTROL OPERATOR Called and spoke to the pt eliseo Alvares, she stated that the pt is taking Lamotrigine remazures. Called and spoke to Aby at [facility], informed Aby that the pt is taking Lamotrigine, she voiced understanding ING YARDAGE CONTROL OPERATOR * Telephone Encounter - Regina Loo MA - 06/30/2023 11:38 AM FORMING YARDAGE CONTROL OPERATOR Spoke to Aby from [facility], Aby stated that she spoke to the pt daughter Aby, the daughter stated to Aby from [facility] that the pt is not taking Lamotrigine. I informed Aby from [facility] that the pt was seen on 06/26/23 and the medications were verified and the pt did not mention she was not taking Lamotrigine and the medication was just filled on 06/24/23 by Adria Quinteros Si. I informed Aby from [facility] that I will call and speak to the pt daughter Aby and call her back with information. Aby from [facility] voiced understanding. Called and spoke to pt daughter Aby, Aby stated she was not for sure if the pt is taking Lamotrigine, Jacques is going to call her daughter Dia to verify pt medication and will send a my chart message. ING YARDAGE CONTROL OPERATOR * Telephone Encounter - Shelia Cobb - 06/27/2023 4:19 PM CST Call Back Caller???s Concern: Aby is calling needing to speak with Regina again regarding getting a verbalorder and CS attempted to call office 2x and did not get an answer. Please follow up Does message need to be routed? Yes-Action Needed ING YARDAGE CONTROL OPERATOR * Telephone Encounter - Pamela Silveira - 06/27/2023 4:13 PM CST Call Back Caller???s Concern: Aby is calling back to follow up. She states she was needing patients updated med list faxed over. She states she called earlier to confirm that patient was no longer taking the lamotrigine so that it could be taken off med list. Fax number is [phone] Does message need to be routed? Yes-Action Needed ING YARDAGE CONTROL OPERATOR * Telephone Encounter - Regina Toscano MA - 06/27/2023 11:04 AM FORMING YARDAGE CONTROL OPERATOR FYI ING YARDAGE CONTROL OPERATOR * Telephone Encounter - Denise October - 06/27/2023 10:57 AM CST Call Back Caller???s Concern: Mackenzie called back and stated that the pt no longer takes the medication / please call her back if needed Does message need to be routed? Yes-FYI Only ING YARDAGE CONTROL OPERATOR * Telephone Encounter - Regina Loo MA - 06/26/2023 4:57 PM FORMING YARDAGE CONTROL OPERATOR Called [facility] and spoke to Mackenzie, Mackenzie [...] be faxed after addendum to Morena at [facility] #[phone] ING YARDAGE CONTROL OPERATOR * Telephone Encounter - David Everett - 06/25/2023 2:44 PM CST [facility] called and they are needing the diagnosis for a few medications. She alsoneeds the diagnosis with cognitive and mobility issues. She would like a call back today if possible as she needs to get this done SHIRA. She can be reached at [phone]. ING YARDAGE CONTROL OPERATOR documented in this encounter Plan of Treatment Not on file documented as of this encounter Visit Diagnoses Not on filedocumented in this encounter Care Teams Client Technologies Analyst Relationship Specialty Start Date End Date Servando Torre MD [facility] [address] PCP - General Family Medicine 06/19/22 Mariela Denton MD [facility] [address] [place] [address] Referring Physician Gastroenterology 06/19/22 Lexis Barroso OD [address] [place] [address] Oil Well Services Superintendent 09/19/22 documented as of this encounter
--- OUTSIDE RECORDS SUMMARY | 2024-07-15 19:57 | XMS_ITS | Encounter Summary ---
Author Organization [facility] Healthcare Address [address] [place] [address] Care Team Providers Care Diesel Locomotive Crane Operator Name Role Phone Servando Torre MD Primary Care Provider [phone]- [phone] Mariela Denton MD Unavailable [phone] -[phone] Lexis Barroso OD Unavailable +1- [phone] Reason for Referral * Consultation (Routine) - Closed Specialty Diagnoses / Procedures Referred By Contclemencia t Referred To Contact Orthopedic Surgery Diagnoses Chronic pain of both knees Olga Hernandez NP Phone: tel: fax: Michael Gonzalez PA [address] [place] [address] [address] Phone: tel: fax: Referral ID Status Reason Start Date Expiration Date V isits Requested Visits Authorized [id number] Closed Specialty Services Required 08/07/2023 09/05/2024 1 1 Question Answer Please select the performing region: [facility] Medical Group [[id number]] Please select the performing department: [facility] [[id number]] To provider: MICHAEL GONZALEZ [[id number]] # of visits: 1 ORATOR Reason for Visit * Reason Comments Cough 10 days, chest pain, disturbing sleep Nasal Congestion Encounter Details Date Type Department Care Team (Late st Contact Info) Description 08/07/2023 3:30 PM EVAPORATOR Office Visit [facility] Medical Group Primary Care at [address] [address] Olga Hernandez NP [address] [facility] [address] [place] [address] Chronic pain of both knees [...] on file Legal Sex Female 9:30 AM EVAPORATOR Gender Identity Female 04/05/2022 6:17 PM CDT Sexual Orientation Straight 04/05/2022 6: 17 PM CDT documented as of this encounter Last Filed Vital Signs Vital Sign Reading Time Taken Comments Blood Pressure 104/58 08/07/2023 3:32 PM EVAPORATOR Pulse 64 08/07/2023 3:32 PM EVAPORATOR Temperature 36.7 ??C (98.1 ??F) 08/07/2023 3:32 PM CS T Respiratory Rate - - Oxygen Saturation 98% 08/07/2023 3:32 PM EVAPORATOR Inhaled Oxygen Concentration - - Weight 67.5 kg (148 lb 14.4 oz) 08/07/2023 3:32 PM EVAPORATOR Height 157.5 cm (5' 2 ) 08/07/2023 3:32 PM EVAPORATOR Body Mass Index 27.23 08/07/2023 3:32 PM EVAPORATOR documented in this encounter Ordered Prescriptions Prescription [...] this encounter Progress Notes * Olga Hernandez, CONTACT CENTER SPECIALIST - 08/07/2023 3:30 PM CST Images from [...] symptoms aren't resolving. Doxycycline Olga Hernandez NP ORATOR documented in this encounter Plan of Treatment Scheduled Referrals Name Type Priority Associated Diagnoses Order Schedule Ambulatory referral to Orthopedic Surgery Outpatient Referral Routine Chronic pain of both knees Expected: 08/21/2023 (Approximate), Expires: 08/07/2024 documented as of this encounter Visit Diagnoses Diagnosis Chronic pain of both knees- Primary Acute non-recurrent frontal sinusitis documented in this encounter Care Teams Diesel Locomotive Crane Operator Relationship Specialty Start Date End Date Servando Torre MD [address] [facility] [address] [place] [address] PCP - General Family Medicine 06/19/22 Mariela Denton MD [address] [place] [address] Referring Physician Gastroenterology 06/19/22 Lexis Barroso OD [address] [place] [address] Special Assets Officer 09/19/22 documented as of this encounter
--- OUTSIDE RECORDS SUMMARY | 2024-07-15 19:57 | XMS_ITS | Encounter Summary ---
Author Organization [facility] Healthcare Address [address] [place] [address] Care Team Providers Care Campaign Director Name Role Phone Servando Trore MD Primary Care Provider [phone] Mariela Denton MD Unavailable [phone] eLxis Barroso OD Unavailable +1- [phone] Reason for Visit * Cardiology (Routine) - Closed Specialty Diagnoses / Procedures Referred By Contac t Referred To Contact Diagnoses Syncope, unspecified syncope type Seizure (HCC) Bradycardia Procedures MCT Mobile Cardiac Telemetry Event Monitor Mesfin Rosenthal MD Phone: tel: fax: [facility] Medical Group Referral ID Status Reason Start Date Expiration Date Visits Re quested Visits Authorized [id number] Closed 06/27/2023 07/26/2024 1 1 Encounter Details Date Type Department Care Team (Latest Contact Info) Description 06/27/2023 2:30 PM COAGULATOR Ancillary Procedure [facility] Medical Group Cardiology [address] [place] [address] Syncope, unspecified syncope type; Seizure [...] on file Legal Sex Female 9:30 AM COAGULATOR Gender Identity Female 04/05/2022 6:17 PM CDT Sexual Orientation Straight 04/05/2022 6: 17 PM CDT documented as of this encounter Plan of Treatment Not on file documented as of this encounter Procedures Procedure Name Priority Date/Time Associated Diagnosis Comments MCT - MOBILE CARDIAC TELEMETRY EVENT MONITOR Routine 06/27/2023 3:42 PM COAGULATOR Syncope, unspecified syncope type Seizure (HCC) Bradycardia documented in this encounter Results * MCT Mobile Cardiac Telemetry Event Monitor (06/27/2023 3:42 PM COAGULATOR) Anatomical Region Laterality Modality Other Narrative 08/01/2023 7:25 PM COAGULATOR Images from the original result were not included. AMBULATORY SERVICE ORDER CLERK REPORT Patient Name: Lisa Allen Date of : 1945 ?? Requesting Physician: ?? Mesfin Rosenthal MD Date of interpretation: 08/01/23 Type of monitor : ?? 30 day monitoring tech Date of the study/Enrollment period: June 27, [...] sinus rhythm without ectopy. Dania Rosenthal MD, [facility] 08/01/23 Voice recognition software was used to complete this document, therefore, rotary screen printing machine operator variances may occur. Procedure Note Mesfin Rosenthal MD - 08/01/2023 Images from the original note were not included. AMBULATORY SERVICE ORDER CLERK REPORT Patient Name: Lisa Allen Date of : 1945 Requesting Physician: Mesfin Rosenthal MD Date of interpretation: 08/01/23 Type of monitor : 30 day monitoring tech Date of the study/Enrollment period: June 27, [...] sinus rhythm without ectopy. Dania Rosenthal MD, [facility] 08/01/23 Voice recognition software was used to complete this document, therefore,rotary screen printing machine operator variances may occur. Mesfin Rosenthal MD [facility] C[facility]IAC SERVICES PROC EDURES Final Result documented in this encounter Visit Diagnoses Diagnosis Syncope, unspecified syncope type Seizure (HCC) Other convulsions Bradycardia Other specified cardiac dysrhythmias documented in this encounter Care Teams Campaign Director Relationship Specialty Start Date End Date Servando Torre MD [address] [facility] [address] [place] [address] PCP - General Family Medicine 06/19/22 Mariela Denton MD [address] [facility] [address] [place] [address] Referring Physician Gastroenterology 06/19/22 Lexis Barroso OD [address] [place] [address] Senior Energy Consultant 09/19/22 documented as of this encounter
--- OUTSIDE RECORDS SUMMARY | 2024-07-15 19:57 | XMS_ITS | Encounter Summary ---
Author Organization [facility] Healthcare Address [address] [place] [address] Care Team Providers Care Pipelines Supervisor Name Role Phone Servando Torre MD Primary Care Provider [phone]- [phone] Mariela Denton MD Unavailable [phone] -[phone] Lexis Barroso OD Unavailable +1- [phone] Encounter Details Date Type Department Care Team (Late st Contact Info) Description 10/02/2023 Telephone [facility] Medical Group Primary Care at [address] [address] Regina Loo MA Social History [...] file Legal Sex Female 9:30 AM SUPERVISOR BLOOD DONOR RECRUITERS Gender Identity Female 04/05/2022 6:17 PM CDT Sexual Orientation Straight 04/05/2022 6: 17 PM CDT documented as of this encounter Miscellaneous Notes * Telephone Encounter - Regina Loo MA - 10/02/2023 10:09 AM SUPERVISOR BLOOD DONOR RECRUITERS Called pt daughter Aby, left message to call the office or view results and Dr Torre's recommendations in my chart [facility] * Telephone Encounter - Regina Loo MA - 10/02/2023 10:09 AM SUPERVISOR BLOOD DONOR RECRUITERS ----- Message from Servando Torre MD sent at 10/01/2023 1:18 PM SUPERVISOR BLOOD DONOR RECRUITERS ----- Please relay: I will have Lisa hold the calcium supplement for now, continue vitamin-D though. Calcium was a little high. Everything else looked pretty good. [facility] [employer] [employer] documented in this encounter Plan of Treatment Not on file documented as of this encounter Visit Diagnoses Not on filedocumented in this encounter Care Teams Pipelines Supervisor Relationship Specialty Start Date End Date Servando Torre MD [facility] [address] PCP - General Family Medicine 06/19/22 Mariela Denton MD [address] [place] [address] Referring Physician Gastroenterology 06/19/22 Lexis Barroso OD [address] [place] [address] Creative Writing Professor 09/19/22 documented as of this encounter
--- OUTSIDE RECORDS SUMMARY | 2024-07-15 19:57 | XMS_ITS | Encounter Summary ---
Author Organization [facility] Healthcare Address [address] [place] [address] Care Team Providers Care Veneer Taper Name Role Phone Servando Torre MD Primary Care Provider Mariela Denton MD Unavailable [phone] [phone] Lexis Barroso OD Unavailable +1- [phone] Reason for Visit * Reason Onset Date Comments Paperwork to be filled out 07/17/2023 Encounter Details Date Type Department Care Team (Late st Contact Info) Description 07/17/[address] [facility] Medical Group Primary Care at [address] [address] Servando Torre MD [address] [place] [address] [address] [place] [address] Paperwork to be filled out [...] on file Legal Sex Female 9:30 AM LABEL CUTTER Gender Identity Female 04/05/2022 6:17 PM CDT Sexual Orientation Straight 04/05/2022 6: 17 PM CDT documented as of this encounter Miscellaneous Notes * Telephone Encounter - Regina Loo MA - 07/18/2023 10:59 AM LABEL CUTTER Forms completed and pt granddasha Duarte notified, forms placed at check in desk L CUTTER * Telephone Encounter - Regina Loo MA - 07/17/2023 10:40 AM LABEL CUTTER Physician Assessment Certification form received and placed on Dr Torre's desk L CUTTER * Telephone Encounter - David Everett - 07/17/2023 9:27 AM CST Pt wilma Duarte came in and dropped off papers that need to be filled out. She would like a call to pick them up when they are filled out. She can be reached at [phone] L CUTTER documented in this encounter Plan of Treatment Not on file documented as of this encounter Visit Diagnoses Not on filedocumented in this encounter Care Teams Veneer Taper Relationship Specialty Start Date End Date Servando Torre MD [address] [address] PCP - General Family Medicine 06/19/22 Mariela Denton MD [address] [place] [address] Referring Physician Gastroenterology 06/19/22 Lexis Barroso OD [address] [address] Rn Float 09/19/22 documented as of this encounter
--- OUTSIDE RECORDS SUMMARY | 2024-07-15 19:57 | XMS_ITS | Encounter Summary ---
Author Organization [facility] Healthcare Address [address] [place] [address] Care Team Providers Care Armament Aircraft Mechanic Name Role Phone Servando Torre MD Primary Care Provider +1- [phone] Mariela Denton MD Unavailable +1 -[phone] Lexis Barroso OD Unavailable +1- [phone] Reason for Referral * Procedure (Routine) - Authorized Specialty Diagnoses / Procedures Referred By Contac t Referred To Contact Diagnoses Primary osteoarthritis of both knees Procedures Large Joint (Hip, Knee, Shoulder) Injection: bilateral knee Riri Gonzalez PA [address] [facility] [address] [address] [address] Phone: tel: fax: [facility] Referral ID Status Reason Start Date Expiration Date V isits Requested Visits Authorized [id number] Authorized 10/21/2023 11/19/2024 1 1 Reason for Visit * Reason Comments Pain Pain Encounter Details Date Type Department Care Team (Late st Contact Info) Description 10/07/2023 9:00 AM CDT Office Visit [facility] Orthopedic and Sports Medicine [address] [place] [address] Riri Gonzalez PA [address] [facility] [address] [place] [address] Primary osteoarthritis of both knees (Primary Dx) [...] on file Legal Sex Female 9:30 AM RAG COLLECTOR Gender Identity Female 04/05/2022 6:17 PM CDT [...] Procedure Name Priority Date/Time Associated Diagnosis Comments [place] ARTHROCENTESIS ASPIR&/INJ MAJOR JT/BURSA W/O US Routine 10/07/2023 9:00 AM CDT Primary osteoarthritis of both knees documented in this encounter Results * [place] ARTHROCENTESIS ASPIR&/INJ MAJOR JT/BURSA W/O US (10/07/2023 [...] mg documented in this encounter Care Teams Armament Aircraft Mechanic Relationship Specialty Start Date End Date Servando Torre MD [address] [facility] [address] [place] [address] PCP - General Family Medicine 06/19/22 Mariela Denton MD [facility] [facility] [address] [place] [address] Referring Physician Gastroenterology 06/19/22 Lexis Barroso OD [address] [place] [address] Hand Folder 09/19/22 documented as of this encounter
--- OUTSIDE RECORDS SUMMARY | 2024-07-15 19:57 | XMS_ITS | Encounter Summary ---
Author Organization [facility] Healthcare Address [address] [place] [address] Care Team Providers Care Home Service Technician Name Role Phone Servando Torre MD Primary Care Provider +1- [phone] Mariela Denton MD Unavailable +1 -[phone] Lexis Barroso OD Unavailable +1- [phone] Reason for Visit * Reason Comments Medicare Wellness Encounter Details Date Type Department Care Team (Late st Contact Info) Description 06/26/2023 2:00 PM GUITAR TEACHER Office Visit [facility] Medical [facility] Primary Care at [address] [address] Servando Torre MD [address] [place] [address] [address] [place] [address] Encounter for Medicare annual wellness [...] on file Legal Sex Female 9:30 AM GUITAR TEACHER Gender Identity Female 04/05/2022 6:17 PM CDT Sexual Orientation Straight 04/05/2022 6: 17 PM CDT documented as of this encounter Last Filed Vital Signs Vital Sign Reading Time Taken Comments Blood Pressure 172/80 06/26/2023 2:29 PM GUITAR TEACHER Pulse 66 06/26/2023 1:55 PM GUITAR TEACHER Temperature 36.8 ??C (98.2 ??F) 06/26/2023 1:55 PM CS T Respiratory Rate 17 06/26/2023 1:55 PM GUITAR TEACHER Oxygen Saturation 96% 06/26/2023 1:55 PM GUITAR TEACHER Inhaled Oxygen Concentration - - Weight 68.7 kg (151 lb 6.4 oz) 06/26/2023 1:55 P M GUITAR TEACHER Height 157.5 cm (5' 2 ) 06/26/2023 1:55 PM GUITAR TEACHER Body Mass Index 27.69 06/26/2023 1:55 PM GUITAR TEACHER documented in this encounter Patient Instructions * Patient Instructions* Servando Torre MD - 06/26/2023 2:00 PM GUITAR TEACHER BP trend x 2 weeks, send numbers [...] you have any questions or concerns at [phone]. You may receive a phone call, text, MYCHART message, or e-mail asking about your care today. We would love to hear your feedback on how EXCELLENT your care wastoday! Wishing you better health, always. Dr. Torre AR TEACHER AR TEACHER * Attachments The following attachments cannot be sent through Care Everywhere. * Losartan (By mouth) (Citizen Of [place]) documented in this encounter Ordered Prescriptions Prescription Sig Dispense Quantity Refills Last Filled Start Date End Date losartan (COZAAR) 25 mg tablet Take 1 tablet (25 mg total) by mouth daily 30 tablet 06/26/2023 07/18/2023 documented in this encounter Progress Notes * Sevrando Torre MD - 06/26/2023 2:00 PM CST [...] with high-risk medication Abnormal liver function tests intermission coordinator (current) use of oral hypoglycemic drugs Type [...] at: [facility] ([facility] order in [facility] under 'Procedures' tab)., Disp: 1 each, [...] as Referring Physician (Gastroenterology) Lexis Barroso OD (Body Cleaner) Primary Pharmacy/DME suppliers: [id number] [place], [place] - [address] AT [address] [facility] [address] Detection of Cognitive Impairment: Mini-Co/5 The patient [...] Improve Diet Advanced Directive Durable Power of Dean Of Faculty: Yes Living Will: Yes Opioid Usage Review [...] update and summary of today's office visit. AR TEACHER documented in this encounter Miscellaneous Notes * Assessment & Plan Note - Servando Torre MD - 06/26/2023 2:02 PM GUITAR TEACHER Associated Problem(s): Encounter for Medicare annual wellness [...] risks vs benefits. Return in 3 months AR TEACHER * Addendum Note - Yesenia Parekh - 06/26/2023 2:00 PM CSTAddended by: YESENIA PAREKH on: 09/30/2023 02:03 PM Modules accepted: Orders AR TEACHER documented in this encounter Plan of Treatment Not on file documented as of this encounter Results * (ABNORMAL) CBC with auto differential (09/30/2023 2:03 PM GUITAR TEACHER) WBC 8.6 3.8 - 9.9 K/cumm CERNER [...] K/cumm CERNER CH Blood 09/30/2023 2:03 PM GUITAR TEACHER 09/30/2023 8:09 PM GUITAR TEACHER Servando Torre MD LAB BLOOD ORDERABLES Final Result Performing Organization Address City/[place] [address] [address] Department [place] [address] * (ABNORMAL) Comprehensive metabolic panel (09/30/2023 2:03 PM GUITAR TEACHER) Sodium 141 135 - 145 mmol/L CERNER [...] Units/L CERNER CH Blood 09/30/2023 2:03 PM GUITAR TEACHER 09/30/2023 8:09 PM GUITAR TEACHER us Servando Torre MD LAB BLOOD ORDERABLES Final Result Performing Organization Address City/State/ZIP [place] ok Phone Number AILEEN [address] [facility] Department [place] [address] * Lipid panel (09/30/2023 2:03 PM GUITAR TEACHER) Cholesterol 191 30 - 199 mg/dL [facility] Comment: Interpretive Data Ages < or = [...] revised on 2018. Triglycerides 136 <=149 mg/dL [facility] Comment: Interpretive Data Ages < or = [...] ratio 3 AILEEN Blood 09/30/2023 2:03 PM GUITAR TEACHER 09/30/2023 8:09 PM GUITAR TEACHER Servando Torre MD LAB BLOOD ORDERABLES Final Result Performing Organization Address [facility] Phone Number [facility] [address] [place] [address] * (ABNORMAL) Hemoglobin A1c (09/30/2023 2:03 PM GUITAR TEACHER) Hgb A1C 6.3(H) 4.0 - 5.6 % AILEEN Estimated Average Glucose 134 mg/dL [facility] Comment: The ADA recommends reporting an estimated Average Glucose (eAG) with all Hemoglobin A1c results using the equation derived from a study of 507 normal and diabetic adults. ??Minority populations were underrepresented and children were not included. ?? (Diabetes Care 31:1284-8065, 2008). ??The eAG is not equivalent to a fasting glucose. Blood 09/30/2023 2:03 PM GUITAR TEACHER 09/30/2023 8:09 PM GUITAR TEACHER Servando Torre MD LAB BLOOD ORDERABLES Final Result Performing Organization Address [facility] de Phone Number AILEEN [address] [address] [facility] [employer] [address] * Thyroid Function Addison (09/30/2023 2:03 PM GUITAR TEACHER) TSH 0.72 0.30 - 4.20 mcIUnit/mL AILEEN MATTHEW Blood 09/30/2023 2:03 PM GUITAR TEACHER 09/30/2023 8:09 PM GUITAR TEACHER Servando Torre MD LAB BLOOD ORDERABLES Final Result [facility]LEEN [address] [address] Department [place] [address] documented in this encounter Visit Diagnoses Diagnosis [...] Indications: hypertensionIndications:hypertensi on Given 06/26/2023 2:34 PM GUITAR TEACHER 0.1 mg documented in this encounter Discontinued [...] 06/27/2023 added in this encounter Care Teams Home Service Technician Relationship Specialty Start Date End Date Servando Torre MD [facility] [address] [place] [address] PCP - General Family Medicine 06/19/22 Mariela Denton MD [address] [place] [address] Referring Physician Gastroenterology 06/19/22 Lexis Barroso OD [address] [place] [address] Body Cleaner 09/19/22 documented as of this encounter
--- OUTSIDE RECORDS SUMMARY | 2024-07-15 19:57 | XMS_ITS | Encounter Summary ---
Author Organization [facility] Healthcare Address [address] [place] [address] Care Team Providers Care Clearing Distribution Clerk Name Role Phone Servando Torre MD Primary Care Provider Mariela Denton MD Unavailable [phone] [phone] Lexis Barroso OD Unavailable +1- [phone] Reason for Visit * Reason Onset Date Comments Medical Question/Miscellaneous 07/25/2023 Encounter Details Date Type Department Care Team (Late st Contact Info) Description 07/25/2023 Telephone [facility] Medical Group Primary Care at [address] [address] Servando Torre MD [address] [place] [address] [address] [place] [address] Medical Question/Miscellaneous Social History Tobacco [...] on file Legal Sex Female 9:30 AM CITY EDITOR Gender Identity Female 04/05/2022 6:17 PM CDT Sexual Orientation Straight 04/05/2022 6: 17 PM CDT documented as of this encounter Miscellaneous Notes * Telephone Encounter - Regina Loo MA - 07/30/2023 2:33 PM CITY EDITOR Spoke to Mary from Medicare, Mary is faxing a form to be completed. EDITOR * Telephone Encounter - Clementine Vega - 07/25/2023 4:29 PM CST Call Back Caller???s Concern: Niraj calling back to advise after speaking with Medicare, Medicare advised to Niraj that practice would need to contact Medicare to confirm pharmacy approval in order to bill patient's Medicare part B for the diabetes testing supplies and lancets. Niraj relayed Medicare phone number: [phone]. Please advise with Medicare at number listed above. Does message need to be routed? Yes-Action Needed EDITOR * Telephone Encounter - Pamela Benites - 07/25/2023 4:16 PM CST Called Niraj and gave dx code. EDITOR * Telephone Encounter - DeniseOctober - 07/25/2023 12:23 PM CST Medical Question/Miscellaneous Caller???s Concern: Niraj called for the ICd-10 code for them to bill medicare part b for the test strips and lancets please call [facility] Does message need to be routed? Yes-Action Needed EDITOR documented in this encounter Plan of Treatment Not on file documented as of this encounter Visit Diagnoses Not on filedocumented in this encounter Care Teams Clearing Distribution Clerk Relationship Specialty Start Date End Date Servando Torre MD [address] [address] PCP - General Family Medicine 06/19/22 Mariela Denton MD [address] [place] [address] Referring Physician Gastroenterology 06/19/22 Lexis Barroso OD [address] [place] [address] Journeyman Level Acoustic Analyst 09/19/22 documented as of this encounter
--- OUTSIDE RECORDS SUMMARY | 2024-07-15 19:57 | XMS_ITS | Encounter Summary ---
Author Organization [facility] Address [address] [place] [address] Phone Care Team Providers Care Stage Settings Painter Name Role Phone Servando Torre MD Primary Care Provider [phone] Mariela Denton MD Unavailable [phone] [phone] Lexis Barroso OD Unavailable +1- [phone] Reason for Referral * MRI/CAT/PET Scan (Routine) - Closed Specialty Diagnoses / Procedures Referred By Angel braswell Referred To Contact Radiology Diagnoses Seizure (HCC) Procedures MRI Brain WO Contrast Adria Burleson MD [address] [facility] [address] [place] [address] Phone: tel: fax: [address] [address] Referral ID Status Reason Start Date Expiration Date Visits Re quested Visits Authorized [id number] Closed 06/24/2023 07/23/2024 1 1 911 TELECOMMUNICATOR Encounter Details Date Type Department Care Team (Late st Contact Info) Description 06/24/2023 1:30 PM 911 TELECOMMUNICATOR Office Visit [facility] [address] [facility] 6th [place] [address] [place] [address] Adria Burleson MD [address] [facility] [address] [place] [address] Seizure (HCC) (Primary Dx) Social History Tobacco [...] on file Legal Sex Female 9:30 AM 911 TELECOMMUNICATOR Gender Identity Female 04/05/2022 6:17 PM CDT Sexual Orientation Straight 04/05/2022 6: 17 PM CDT documented as of this encounter Last Filed Vital Signs Vital Sign Reading Time Taken Comments Blood Pressure 176/84 06/24/2023 1:37 PM 911 TELECOMMUNICATOR Pulse 66 06/24/2023 1:37 PM 911 TELECOMMUNICATOR Temperature - - Respiratory Rate - - Oxygen Saturation - - Inhaled Oxygen Concentration - - Weight 65.8 kg (145 lb) 06/24/2023 1:37 PM 911 TELECOMMUNICATOR Height 157.5 cm (5' 2 ) 06/24/2023 1:37 PM 911 TELECOMMUNICATOR Body Mass Index 26.52 06/24/2023 1:37 PM 911 TELECOMMUNICATOR documented in this encounter Ordered Prescriptions Prescription [...] history from last visit: Fall while in [place] 01/30/2023 [place] altitude) for a family reunion [...] history: Epilepsy Risk Factors: Febrile seizure(s): No 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 -EEG at [facility] on 03/07/2023: This is an abnormal awake [...] time spent in any separately reportable services. 911 TELECOMMUNICATOR documented in this encounter Plan of Treatment Not on file documented as of this encounter Results * MRI Brain WO Contrast (07/11/2023 2:40 PM 911 TELECOMMUNICATOR) Anatomical Region Laterality Modality Head and Neck N/A Magnetic Resonan ce 07/11/2023 3:40 PM 911 TELECOMMUNICATOR Impressions 07/11/2023 4:17 PM 911 TELECOMMUNICATOR No MRI evidence to explain the patient's seizures. Dictated by: Marcell Cerna MD The radiology attending physician has personally reviewed this study, and had reviewed and/or edited this written report and agrees with it. Electronically signed by: Tino Rodriguez M.D. Ph.D. Narrative 07/11/2023 4:17 PM 911 TELECOMMUNICATOR EXAMINATION: Magnetic resonance imaging (MRI) of the [...] documented as of this encounter Care Teams Stage Settings Painter Relationship Specialty Start Date End Date Servando Torre MD [address] [facility] [address] [place] [address] PCP - General Family Medicine 06/19/22 Mariela Denton MD [address] [place] [address] Referring Physician Gastroenterology 06/19/22 Lexis Barroso OD [address] [address] Project Economist 09/19/22 documented as of this encounter
--- OUTSIDE RECORDS SUMMARY | 2024-07-15 19:57 | XMS_ITS | Encounter Summary ---
Author Organization [facility] Address [address] [place] [address] Phone Care Team Providers Care Dye Can Operator Name Role Phone Servando Torre MD Primary Care Provider [phone] Mariela Denton MD Unavailable [phone] [phone] Lexis Barroso OD Unavailable +1- [phone] Encounter Details Date Type Department Care Team (Late st Contact Info) Description 07/04/2023 Telephone [place] [address] [facility] First Floor [address] [place] [address] Eileen Hernandez, RN Social History [...] on file Legal Sex Female 9:30 AM MAJOR LEAGUE BASEBALL PLAYER Gender Identity Female 04/05/2022 6:17 PM CDT Sexual Orientation Straight 04/05/2022 6: 17 PM CDT documented as of this encounter Miscellaneous Notes * Telephone Encounter - Eileen Hernandez RN - 07/04/2023 3:56 PM MAJOR LEAGUE BASEBALL PLAYER Daughter Aby is calling concerned about patients [...] the edge off her anxiety. Please advise. R LEAGUE BASEBALL PLAYER documented in this encounter Plan of Treatment Not on file documented as of this encounter Visit Diagnoses Not on filedocumented in this encounter Care Teams Dye Can Operator Relationship Specialty Start Date End Date Servando Torre MD [facility] [address] [address] PCP - General Family Medicine 06/19/22 Mariela Denton MD [address] [place] [address] Referring Physician Gastroenterology 06/19/22 Lexis Barroso OD [address] [place] [address] Hop Farm Worker 09/19/22 documented as of this encounter
--- OUTSIDE RECORDS SUMMARY | 2024-07-15 19:57 | XMS_ITS | Encounter Summary ---
Author Organization [facility] Healthcare Address [address] [place] [address] Care Team Providers Care Coal Carrier Name Role Phone Servando Torre MD Primary Care Provider [phone] Mariela Denton MD Unavailable [phone] [phone] Lexis Barroso OD Unavailable [phone]- [phone] Encounter Details Date Type Department Care Team (Late st Contact Info) Description 07/04/2023 Telephone [facility] Medical Group Primary Care at [address] [address] Servando Torre MD [address] [place] [address] [address] [place] [address] Social History Tobacco Use Types [...] on file Legal Sex Female 9:30 AM DRYWALL FINISHER FOREMAN Gender Identity Female 04/05/2022 6:17 PM CDT Sexual Orientation Straight 04/05/2022 6: 17 PM CDT documented as of this encounter Miscellaneous Notes * Telephone Encounter - Lexis Jhaveri MA - 07/07/2023 10:43 AM CST HH notified. ALL FINISHER FOREMAN * Telephone Encounter - Lexis Jhaveri MA - 07/04/2023 11:39 AM CST Talked with HH. Their coding dept is having a hard time getting ins to cover their services. 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 They have notes from her neurologist where is suggests that but they cannot use this. ALL FINISHER FOREMAN * Telephone Encounter - Hailey Orourke - 07/04/2023 10:21 AM CST HH called stating they have questions regarding pt's services. P: [phone] ALL FINISHER FOREMAN documented in this encounter Plan of Treatment Not on file documented as of this encounter Visit Diagnoses Not on filedocumented in this encounter Care Teams Coal Carrier Relationship Specialty Start Date End Date Servando Torre MD [facility] [address] [place] [address] PCP - General Family Medicine 06/19/22 Mariela Denton MD [address] [place] [address] Referring Physician Gastroenterology 06/19/22 Lexis Barroso OD [address] [place] [address] Protective Services Case Worker 09/19/22 documented as of this encounter
--- OUTSIDE RECORDS SUMMARY | 2024-07-15 19:57 | XMS_ITS | Encounter Summary ---
Author Organization [facility] Healthcare Address [address] [place] [address] Care Team Providers Care Vault Attendant Name Role Phone Servando Torre MD Primary Care Provider [phone]- [phone] Mariela Denton MD Unavailable [phone] [phone] Lexis Barroso OD Unavailable +1- [phone] Reason for Visit * Diagnostic Imaging (Routine) - Closed Specialty Diagnoses / Procedures Referred By Contclemencia t Referred To Contact Diagnoses Chronic pain of both knees Procedures XR Pelvis 1 or 2 Views Riri Gonzalez PA [address] [place] [address] [address] [place] [address] Phone: tel: fax: [facility] Medical Group Referral ID Status Reason Start Date Expiration Date Visits Re quested Visits Authorized [id number] Closed 08/28/2023 09/26/2024 1 1 Encounter Details Date Type Department Care Team (Latest Contact Info) Description 08/28/2023 10:55 AM ASSISTANT SERVICE MANAGER Ancillary Procedure [facility] Medical [facility] Imaging at [address] [address] Chronic pain of both knees [...] file Legal Sex Female 9:30 AM ASSISTANT SERVICE MANAGER Gender Identity Female 04/05/2022 6:17 PM CDT Sexual Orientation Straight 04/05/2022 6: 17 PM CDT documented as of this encounter Plan of Treatment Not on file documented as of this encounter Procedures Procedure Name Priority Date/Time Associated Diagnosis Comments XR PELVIS 1 OR 2 VIEWS Schedule Routine, Read Routine (OP Routine) 08/28/2023 11:01 AM ASSISTANT SERVICE MANAGER Chronic pain of both knees documented in this encounter Results * XR Pelvis 1 or 2 Views (08/28/2023 11:01 AM ASSISTANT SERVICE MANAGER) Anatomical Region Laterality Modality Body, Pelvis N/A Digital Radiogra phy Narrative 08/28/2023 1:04 PM ASSISTANT SERVICE MANAGER Radiographs of the pelvis reviewed interpreted. ??No [...] knees documented in this encounter Care Teams Vault Attendant Relationship Specialty Start Date End Date Servando Torre MD [address] [facility] [address] [place] [address] PCP - General Family Medicine 06/19/22 Mariela Denton MD [address] [place] [address] Referring Physician Gastroenterology 06/19/22 Lexis Barroso OD [address] [place] [address] Line Erector 09/19/22 documented as of this encounter
--- OUTSIDE RECORDS SUMMARY | 2024-07-15 19:57 | XMS_ITS | Encounter Summary ---
Author Organization [facility] Address [address] [place] [address] Phone Care Team Providers Care Application Chemist Name Role Phone Servando Torre MD Primary Care Provider [phone]- [phone] Mariela Denton MD Unavailable [phone] [phone] Lexis Barroso OD Unavailable +1- [phone] Encounter Details Date Type Department Care Team (Late st Contact Info) Description 10/29/2023 1:00 PM CDT Office Visit [facility] Gastroenterology [address] [facility] 12th [place] [address] [place] [address] Josué Cook MD [address] [facility] [address] [place], [place] [id number] Ulcerative colitis with complication, unspecified location (HCC) [...] file Legal Sex Female 9:30 AM SUPERVISOR STAGE CARPENTRY Gender Identity Female 04/05/2022 6:17 PM CDT [...] this encounter Patient Instructions * Patient Instructions* Aayla Mobley RN - 10/29/2023 1:00 PM CDT [...] up in April 2024 Josué Cook MD Telecommunications Engineermanager video games Department of Gastroenterology [facility] [...] documented as of this encounter Care Teams Application Chemist Relationship Specialty Start Date End Date Servando Torre MD [address] [address] PCP - General Family Medicine 06/19/22 Mariela Denton MD [address] [place] [address] Referring Physician Gastroenterology 06/19/22 Lexis Barroso OD [address] [place] [address] Senior Research Scientist 09/19/22 documented as of this encounter
--- OUTSIDE RECORDS SUMMARY | 2024-07-15 19:57 | XMS_ITS | Encounter Summary ---
Author Organization [facility] Address [address] [place] [address] Phone Care Team Providers Care Director Of Acquisition Marketing Name Role Phone Servando Torre MD Primary Care Provider +1 [phone] Mariela Denton MD Unavailable +1 -[phone] Lexis Barroso OD Unavailable +1- [phone] Encounter Details Date Type Department Care Team (Late st Contact Info) Description 07/14/[address] [facility] Epilepsy [address] [facility] 6th [place] [address] [place] [address] Adria Burleson MD [address] [facility] [address] [place] [address] Social History Tobacco Use Types [...] on file Legal Sex Female 9:30 AM SAWDUST DRIER Gender Identity Female 04/05/2022 6:17 PM CDT Sexual Orientation Straight 04/05/2022 6: 17 PM CDT documented as of this encounter Miscellaneous Notes * Telephone Encounter - Sherita Licona RN - 07/15/2023 7:25 AM SAWDUST DRIER Local Voice Mediahart message was reviewed. UST DRIER * Telephone Encounter - Sherita Licona RN - 07/14/2023 1:53 PM SAWDUST DRIER Sent GetJob message informing patient that there were no structual abnormalities to explain seizure events. UST DRIER * Telephone Encounter - Sherita Licona RN - 07/14/2023 11:13 AM SAWDUST DRIER ----- Message from Adria Diop MD sent at 07/14/2023 10:59 AM SAWDUST DRIER ----- Dear Sherita Can we update family? TY IMPRESSION: No MRI evidence to explain the patient's seizures. ----- Message ----- From: Interface, Radiology Results In Sent: 07/11/2023 4:19 PM SAWDUST DRIER To: Adria Diop MD UST DRIER UST DRIER documented in this encounter Plan of Treatment Not on file documented as of this encounter Visit Diagnoses Not on filedocumented in this encounter Care Teams Director Of Acquisition Marketing Relationship Specialty Start Date End Date Servando Torre MD [address] [facility] [address] [place] [address] PCP - General Family Medicine 06/19/22 Mariela Denton MD [address] [facility] [address] [place] [address] Referring Physician Gastroenterology 06/19/22 Lexis Barroso OD [address] [place] [address] Named Account Executive 09/19/22 documented as of this encounter
--- OUTSIDE RECORDS SUMMARY | 2024-07-15 19:57 | XMS_ITS | Encounter Summary ---
Author Organization [facility] Healthcare Address [address] [place] [address] Care Team Providers Care Keg Inspector Name Role Phone Servando Torre MD Primary Care Provider +1- [phone] Mariela Denton MD Unavailable +1 -[phone] Lexis Barroso OD Unavailable +1- [phone] Encounter Details Date Type Department Care Team (Late st Contact Info) Description 07/24/2023 12:20 PM DIE MAINTENANCE TECHNICIAN Lab [address] [address] Ulcerative colitis with complication, unspecified location (HCC); [...] file Legal Sex Female 9:30 AM DIE MAINTENANCE TECHNICIAN Gender Identity Female 04/05/2022 6:17 PM CDT Sexual Orientation Straight 04/05/2022 6: 17 PM CDT documented as of this encounter Plan of Treatment Not on file documented as of this encounter Procedures Procedure Name Priority Date/Time Associated Diagnosis Comments THIOPURINE METABOLITES Routine 07/24/2023 12:36 PM DIE MAINTENANCE TECHNICIAN Ulcerative colitis with complication, unspecified location (HCC) High risk medications (not anticoagulants) long-term use 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 6-MMP, bld 2241 < or = 5700 AILEEN RODRIGUEZ ([place]) Comment: Decreased risk of hepatotoxicity. ADDITIONAL INFORMATION Testing performed by Liquid Chromatography-Tandem Mass Spectrometry (LC-MS/MS) This test was developed and its performance characteristics determined by [facility] in a manner consistent with CLIA requirements. This test has not been cleared or approved by the U.S. Food and Drug Administration. Test Performed by: [facility] - [address] [address] Furniture Assembler And Installer: Holden Redman M.D. 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
--- OUTSIDE RECORDS SUMMARY | 2024-07-15 19:57 | XMS_ITS | Encounter Summary ---
Author Organization [facility] Address [address] [place] [address] Phone Care Team Providers Care Career Professional Name Role Phone Servando Torre MD Primary Care Provider +1 [phone] Mariela Denton MD Unavailable +1 -[phone] Lexis Barroso OD Unavailable +1- [phone] Encounter Details Date Type Department Care Team (Late st Contact Info) Description 06/18/2023 Orders Only [facility] Gastroenterology [facility] Medical Office Building [address] [place] [address] Mayra Zelaya, CONSTANZA [address] [place] [address] High risk medications (not anticoagulants) [...] on file Legal Sex Female 9:30 AM HADOOP ANALYST Gender Identity Female 04/05/2022 6:17 PM [...] Portal with lab order and instructions sent OP ANALYST documented in this encounter Miscellaneous Notes * Addendum Note - Link Gomez - 06/18/2023 11:35 AM CSTAddended by: LINK GOMEZ on: 07/24/2023 12:32 PM Modules accepted: Orders OP ANALYST documented in this encounter Plan of Treatment Not on file documented as of this encounter Results * (ABNORMAL) Thiopurine metabolites (07/24/2023 12:36 PM HADOOP ANALYST) 6-TG, bld 214(L) 235 - 450 [facility] ([place]) Comment: Decreased possibility of response; suboptimal dosing or noncompliance. 6-MMP, bld 2241 < or = 5700 AILEEN RODRIGUEZ ([place]) Comment: Decreased risk of hepatotoxicity. ADDITIONAL INFORMATION Testing performed by Liquid Chromatography-Tandem Mass Spectrometry (LC-MS/MS) This test was developed and its performance characteristics determined by [facility] in a manner consistent with CLIA requirements. This test has not been cleared or approved by the U.S. Food and Drug Administration. Test Performed by: [facility] - [facility] [address] [place] [address] Automatic Folder Seamer: Holden Redman M.D. Ph.D.; CLIA# [id number] Blood 07/24/2023 12:3 6 PM HADOOP ANALYST 07/24/2023 12:41 PM HADOOP ANALYST Josué Cook MD LAB BLOOD ORDERABLES F inal Result AILEEN RODRIGUEZ ([place]) 1 [facility] Department [place] [address] documented in this encounter Visit Diagnoses Diagnosis [...] documented as of this encounter Care Teams Career Professional Relationship Specialty Start Date End Date Servando Torre MD [address] [address] PCP - General Family Medicine 06/19/22 Mariela Denton MD [address] [place] [address] Referring Physician Gastroenterology 06/19/22 Lexis Barroso OD [address] [place] [address] Research Development Manager 09/19/22 documented as of this encounter
--- OUTSIDE RECORDS SUMMARY | 2024-07-15 19:57 | XMS_ITS | Encounter Summary ---
Author Organization [facility] Address [address] [place] [address] Phone Care Team Providers Care Therapist Asst Name Role Phone Servando Torre MD Primary Care Provider +1 [phone] Mariela Denton MD Unavailable [phone] -[phone] Lexis Barroso OD Unavailable +1- [phone] Reason for Visit * Reason Onset Date Comments Plan to check Entyvio level 08/19/2023 Encounter Details Date Type Department Care Team (Late st Contact Info) Description 08/19/2023 Documentation [facility] Gastroenterology [address] [facility] 12th [place] [address] [place] [address] Lexis Renteria, ELMO Plan to check Entyvio [...] on file Legal Sex Female 9:30 AM MAINTENANCE MECHANIC Gender Identity Female 04/05/2022 6:17 PM [...] scheduled for 10/07/23. External order faxed to [facility] infusion center. Asked infusion team to reach out to our office if unable to draw Vedo level so that we canmake other arrangements, if necessary -------Fax Transmission Report------- To: Recipient at [phone] Subject: Joseph Allen Vedolizumab level (secure) Result: The transmission was successful. Explanation: All Pages Ok Pages Sent: 2 Connect Time: 1 minutes, 46 seconds Transmit Time: 08/19/2023 13:35 Transfer Rate: 9600 Status Code: 0000 Retry Count: 0 Job Id: [id number] Unique Id: [id number] Fax Line: 22 Fax Armed Security Professional: [id number] TENANCE MECHANIC documented in this encounter Plan of Treatment Not on file documented as of this encounter Visit Diagnoses Not on filedocumented in this encounter Care Teams Therapist Asst Relationship Specialty Start Date End Date Servando Torre MD [address] [facility] [address] [place] [address] PCP - General Family Medicine 06/19/22 Mariela Denton MD [address] [place] [address] Referring Physician Gastroenterology 06/19/22 Lexis Barroso OD [address] [place] [address] Boat Designer 09/19/22 documented as of this encounter
--- OUTSIDE RECORDS SUMMARY | 2024-07-15 19:57 | XMS_ITS | Encounter Summary ---
Author Organization [facility] Healthcare Address [address] [place] [address] Care Team Providers Care Master Tax Advisor Name Role Phone Servando Torre MD Primary Care Provider +1- [phone] Mariela Denton MD Unavailable +1 -[phone] Lexis Barroso OD Unavailable +1- [phone] Reason for Referral * Physical Therapy (Routine) - Closed Specialty Diagnoses / Procedures Referred By Angel braswell Referred To Contact Physical Therapy Diagnoses Chronic pain of both knees Primary osteoarthritis of both knees Leg weakness, bilateral Weakness of both hips Riri Gonzalez PA [address] [place] [address] [address] Phone: tel: fax: External Order Referral ID Status Reason Start Date Expiration Date V isits Requested Visits Authorized [id number] Closed Specialty Services Required 08/28/2023 09/26/2024 24 [...] instruction Therapist to determine frequency/duration of treatment WELDER * Diagnostic Imaging (Routine) - Closed Specialty Diagnoses / Procedures Referred By Angel braswell Referred To Contact Diagnoses Chronic pain of both knees Procedures XR Pelvis 1 or 2 Views Riri Gonzalez PA [address] [place] [address] Phone: tel: fax: [facility] Referral ID Status Reason Start Date Expiration Date Visits Re quested Visits Authorized [id number] Closed 08/28/2023 09/26/2024 1 1 WELDER Reason for Visit * Reason Comments Pain Pain * Consultation (Routine) - Closed Specialty Diagnoses / Procedures Referred By Angel braswell Referred To Contact Orthopedic Surgery Diagnoses Chronic pain of both knees Olga Hernandez NP Phone: tel: fax: Riri Gonzalez PA [address] [place] [address] [address] [place] [address] Phone: tel: fax: Referral ID Status Reason Start Date Expiration Date V isits Requested Visits Authorized [id number] Closed Specialty Services Required 08/07/2023 09/05/2024 1 1 Encounter Details Date Type Department Care Team (Late st Contact Info) Description 08/28/2023 11:15 AM GUN WELDER Office Visit [facility] Orthopedic and Sports Medicine [address] [place] [address] Riri Gonzalez PA [address] [place] [address] [address] [place] [address] Primary osteoarthritis of both knees (Primary Dx); [...] on file Legal Sex Female 9:30 AM GUN WELDER Gender Identity Female 04/05/2022 6:17 PM CDT Sexual Orientation Straight 04/05/2022 6: 17 PM CDT documented as of this encounter Last Filed Vital Signs Vital Sign Reading Time Taken Comments Blood Pressure 136/73 08/28/2023 11:04 AM GUN WELDER Pulse 69 08/28/2023 11:04 AM GUN WELDER Temperature - - Respiratory Rate - - Oxygen Saturation - - Inhaled Oxygen Concentration - - Weight 65.6 kg (144 lb 11.2 oz) 024 11:04 AM GUN WELDER Height 157.5 cm (5' 2 ) 08/28/2023 11:0 4 AM GUN WELDER Body Mass Index 26.47 08/28/2023 11:04 AM GUN WELDER documented in this encounter Patient Instructions * Patient Instructions* Riri Gonzalez PA - 08/28/2023 11:15 AM GUN WELDER Over the counter medications to try: Topical Voltaren (diclofenac 1%); may use 3-4x daily with caution Topical lidocaine creams or patches (4% OTC) Tylenol up to 3000 mg daily WELDER documented in this encounter Progress Notes * [...] Anemia, Broken ribs, Detached retina, Diabetes mellitus ([facility]), GERD (gastroesophageal reflux disease), Gout, Hyperlipidemia, Hypertension, 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 PAST SURGICAL HISTORY She has a [...] corticosteroid injections, viscosupplementation injections, physical therapy, NSAIDs, nzmy-dcj-brxlhkb analgesics, and/or topical creams/analgesics. Likely, most of her complaints are due to advanced patellofemoral arthritis along with age-related weakness of the bilateral lower extremities. She has not a candidate for surgical intervention. Therefore we discussed a stepwise approach to managing her symptoms conservatively. She would like to try gllx-afi-runluov topical agents, use of Tylenol, and additional [...] Samy Boston MD at 09/02/2023 9:04 AM GUN WELDER WELDER WELDER documented in this encounter Plan of Treatment [...] 4 or More Views (08/28/2023 11:01 AM GUN WELDER) Anatomical Region Laterality Modality Lower Extremities, Knee Digital Radiography Narrative 08/28/2023 1:05 PM GUN WELDER Weightbearing views of the bilateral knee are [...] 1 or 2 Views (08/28/2023 11:01 AM GUN WELDER) Anatomical Region Laterality Modality Body, Pelvis N/A Digital Radiogra phy Narrative 08/28/2023 1:04 PM GUN WELDER Radiographs of the pelvis reviewed interpreted. ??No [...] 2023 documented in this encounter Care Teams Master Tax Advisor Relationship Specialty Start Date End Date Servando Torre MD [facility] [address] PCP - General Family Medicine 06/19/22 Mariela Denton MD [facility] [address] [place] [address] Referring Physician Gastroenterology 06/19/22 Lexis Barroso OD [address] [place] [address] Devulcanizer Head 09/19/22 documented as of this encounter
--- OUTSIDE RECORDS SUMMARY | 2024-07-15 19:57 | XMS_ITS | Encounter Summary ---
Author Organization [facility] Healthcare Address [address] [place] [address] Care Team Providers Care Brand Advisor Name Role Phone Servando Torre MD Primary Care Provider +1- [phone] Mariela Denton MD Unavailable +1 -[phone] Lexis Barroso OD Unavailable +1- [phone] Encounter Details Date Type Department Care Team (Late st Contact Info) Description 07/01/2023 3:15 PM SOLIDS CONTROL TECHNICIAN Lab [facility] Outpatient Lab at [address] [address] Social History Tobacco Use Types [...] on file Legal Sex Female 9:30 AM SOLIDS CONTROL TECHNICIAN Gender Identity Female 04/05/2022 6:17 PM CDT Sexual Orientation Straight 04/05/2022 6: 17 PM CDT documented as of this encounter Plan of Treatment Not on file documented as of this encounter Visit Diagnoses Not on filedocumented in this encounter Care Teams Brand Advisor Relationship Specialty Start Date End Date Servando Torre MD [address] [facility] [address] [place] [address] PCP - General Family Medicine 06/19/22 Mariela Denton MD [address] [place] [address] Referring Physician Gastroenterology 06/19/22 Lexis Barroso OD [address] [place] [address] Parachute Mender 09/19/22 documented as of this encounter
--- OUTSIDE RECORDS SUMMARY | 2024-07-15 19:57 | XMS_ITS | Encounter Summary ---
Author Organization [facility] Healthcare Address [address] [place] [address] Care Team Providers Care Tenterer Name Role Phone Servando Torre MD Primary Care Provider Mariela Denton MD Unavailable [phone] -[phone] Lexis Barroso OD Unavailable +1- [phone] Reason for Visit * Reason Onset Date Comments Patient Running Late For Apt 09/30/2023 Encounter Details Date Type Department Care Team (Late st Contact Info) Description 09/30/2023 Telephone [facility] Primary Care at [place] [address] [place] [address] Servando Torre MD [address] [place] [address] [address] [place] [address] Patient Running Late For Apt [...] on file Legal Sex Female 9:[address] DEVELOPER Gender Identity Female 04/05/2022 6:17 PM [...] message need to be routed? Yes-FYI Only SQL DEVELOPER documented in this encounter Plan of Treatment Not on file documented as of this encounter Visit Diagnoses Not on filedocumented in this encounter Care Teams Tenterer Relationship Specialty Start Date End Date Servando Torre MD [facility] [address] [address] PCP - General Family Medicine 06/19/22 Mariela Denton MD [facility] [address] [place] [address] Referring Physician Gastroenterology 06/19/22 Lexis Barroso OD [address] [place] [address] Regional Facilities Specialist 09/19/22 documented as of this encounter
--- OUTSIDE RECORDS SUMMARY | 2024-07-15 19:57 | XMS_ITS | Encounter Summary ---
Author Organization [facility] Healthcare Address [address] [place] [address] Care Team Providers Care Logistics Planner Name Role Phone Servando Torre MD Primary Care Provider Mariela Denton MD Unavailable [phone] [phone] Lexis Barroso OD Unavailable +1- [phone] Reason for Visit * Reason Onset Date Comments Additional Services Or Orders 06/30/2023 Encounter Details Date Type Department Care Team (Late st Contact Info) Description 06/30/2023 Telephone [facility] Primary Care at [address] [address] Servando Torre MD [address] [place] [address] [address] [place] [address] Additional Services Or Orders Social [...] on file Legal Sex Female 9:30 AM CAR TRACER Gender Identity Female 04/05/2022 6:17 PM [...] message need to be routed? Yes-Action Needed TRACER * Addendum Note - Lydia Otto - 07/01/2023 3:30 PM CSTAddended by: LYDIA OTTO on: 07/01/2023 03:30 PM Modules accepted: Orders TRACER * Telephone Encounter - Regina Loo MA - 06/30/2023 12:02 PM CAR TRACER Spoke to Kimmie from [facility], Kimmie stated that the pt blood pressure was 182/86 and the pt confusion is worse. Spoke to Dr Torre, per Dr Torre pt to increase Losartan to 50mg and have urine tested. Called and Spoke to pt eliseo Alvares, informed her of increase in Losartan and urine test.She voiced understanding Called and spoke to Kimmie from [facility] and informed her of medication increase and [...] pt is going to go outside of [facility] then let the office know and the order can be faxed. TRACER * Telephone Encounter - Britany Garcia - 06/30/2023 11:21 AM CST Medical Question/Miscellaneous Caller???s Concern: Kimmie wanting to speak with nurse about patients health, she has increased confusion and elevated blood pressure. Does message need to be routed? Yes-Action Needed TRACER documented in this encounter Plan of Treatment Not on file documented as of this encounter Results * (ABNORMAL) Urinalysis reflex to microscopic (07/01/2023 3:30 PM CAR TRACER) Color, ur Yellow Yellow CERNER CH Clarity, [...] for uric acid stone formation. Source: [place] [employer] Current Interpretive Data was last revised on [...] performed. CERNER CH Urine 07/01/2023 3:30 PM CAR TRACER 07/01/2023 6:41 PM CAR TRACER us Servando Torre MD LAB URINE ORDERABLES Final Result Performing Organization Address City/[facility]/ZIP Co de Phone Number AILEEN TIFF [address] [facility] [place] [address] * Urine culture Urine, clean voided (07/01/2023 3:30 PM CAR TRACER) Report Final Report: Less than 100,000 colonies/mL (clinically insignificant growth based on current clinical standards) AILEEN MATTHEW Comment:Testing performed by : [facility], [address] [place]., [address] Organism (CLINICALLY INSIGNIFICANT GROWTH AILEEN Urine, clean voided 07/01/2023 3:30 PM CAR TRACER 07/01/2023 9:57 PM CAR TRACER Narrative AILEEN MATTHEW - 07/03/2023 8:11 AM CAR TRACER Testing performed by [facility] Microbiology Laboratory ([phone]) us Servando Torre MD LAB MICROBIOLOGY - GENERAL ORDERABLES Final Result Performing Organization Address City/[facility] Co de Phone Number AILEEN MATTHEW [address] [place] [address] documented in this encounter Visit Diagnoses Diagnosis UTI symptoms- Primary UTI symptoms documented in this encounter Care Teams Logistics Planner Relationship Specialty Start Date End Date Servando Torre MD [facility] [address] [address] PCP - General Family Medicine 06/19/22 Mariela Denton MD [address] [place] [address] Referring Physician Gastroenterology 06/19/22 Lexis Barroso OD [address] [place] [address] Pole Peeling Machine Operator Helper 09/19/22 documented as of this encounter
--- OUTSIDE RECORDS SUMMARY | 2024-07-15 19:57 | XMS_ITS | Encounter Summary ---
Author Organization [facility] Healthcare Address [address] [place] [address] Care Team Providers Care Hotel Registration Clerk Name Role Phone Servando Torre MD Primary Care Provider [phone]- [phone] Mariela Denton MD Unavailable +1 -[phone] Lexis Barroso OD Unavailable +1- [phone] Encounter Details Date Type Department Care Team (Latest Contact Info) Description 07/01/2023 3:30 PM BRICK SIDING APPLICATOR - 07/01/2023 11:59 PM BRICK SIDING APPLICATOR Hospital Encounter [facility] [id number] [place] [address] UTI symptoms Discharge Disposition: Discharge to [...] on file Legal Sex Female 9:30 AM BRICK SIDING APPLICATOR Gender Identity Female 04/05/2022 6:17 PM CDT [...] [facility] ([facility] order in [facility] under 'Procedures' tab). 1 each 5 [...] REFLEX TO MICROSCOPIC Routine 07/01/2023 3:30 PM BRICK SIDING APPLICATOR UTI symptoms URINALYSIS, MICROSCOPIC ONLY Routine 07/01/2023 3:30 PM BRICK SIDING APPLICATOR UTI symptoms URINE CULTURE Routine 07/01/2023 3:30 PM BRICK SIDING APPLICATOR UTI symptoms documented in this encounter Results * (ABNORMAL) Urinalysis, microscopic only (07/01/2023 3:30 PM BRICK SIDING APPLICATOR) WBC, ur 0-5 0 - 5 /HPF [facility] RBC, ur 3-5(A) 0 - 2 /HPF [facility] Epithelial cells, squamous, ur 1-5 0 - 5 /HPF [facility] Calcium oxalate crystals, ur 3+(A) [facility] Urine 07/01/2023 3:30 PM BRICK SIDING APPLICATOR 07/01/2023 6:41 PM BRICK SIDING APPLICATOR Servando Torre MD LAB URINE ORDERABLES Final Result Performing Organization Address [facility] de Phone Number [facility] [address] [place] [address] * Urine culture Urine, clean voided (07/01/2023 3:30 PM BRICK SIDING APPLICATOR) Report Final Report: Less than 100,000 colonies/mL (clinically insignificant growth based on current clinical standards) [facility] Comment:Testing performed by : [facility], [address] [place]., [address] Organism (CLINICALLY INSIGNIFICANT GROWTH [facility] Urine, clean voided 07/01/2023 3:30 PM BRICK SIDING APPLICATOR 07/01/2023 9:57 PM BRICK SIDING APPLICATOR Narrative [facility] - 07/03/2023 8:11 AM BRICK SIDING APPLICATOR Testing performed by [facility] ([phone]) Servando Torre MD LAB MICROBIOLOGY - GENERAL ORDERABLES Final Result Performing Organization Address [facility] Phone Number [facility] [address] [place] [address] * (ABNORMAL) Urinalysis reflex to microscopic (07/01/2023 3:30 PM BRICK SIDING APPLICATOR) Color, ur Yellow Yellow [facility] Clarity, ur Cloudy(A) Clear [facility] Specific gravity, ur 1.016 1.003 - 1.030 [facility] pH, urine 7.0 [facility] Comment: Interpretive Data ? Urine pH is affected by diet, medications, systemic acid-base disturbances, and renal tubular function. ??pH may affect urinary stone formation. ??For example, urine pH below 6.0 may help reduce the tendency for calcium phosphate stones and pH greater than 6.0 may reduce the tendency for uric acid stone formation. Source: [facility] Current Interpretive Data was last revised on [...] performed. [facility] Urine 07/01/2023 3:30 PM BRICK SIDING APPLICATOR 07/01/2023 6:41 PM BRICK SIDING APPLICATOR us Servando Torre MD LAB URINE ORDERABLES Final Result Performing Organization Address City/State/[facility] Co ri Phone Number [facility] [address] [facility] Department [place] [address] documented in this encounter Visit Diagnoses Diagnosis UTI symptoms documented in this encounter Care Teams Hotel Registration Clerk Relationship Specialty Start Date End Date Servando Torre MD [facility] [address] [place] [address] PCP - General Family Medicine 06/19/22 Mariela Denton MD [facility] [address] [place] [address] Referring Physician Gastroenterology 06/19/22 Lexis Barroso OD [address] [place] [address] Log Hooker 09/19/22 documented as of this encounter
--- OUTSIDE RECORDS SUMMARY | 2024-07-15 19:57 | XMS_ITS | Encounter Summary ---
Author Organization [facility] Healthcare Address [address] [place] [address] Care Team Providers Care Colorer Hides And Skins Name Role Phone Servando Torre MD Primary Care Provider [phone] Mariela Denton MD Unavailable [phone] [phone] Lexis Barroso OD Unavailable [phone]- [phone] Reason for Referral * MRI/CAT/PET Scan (Routine) - Closed Specialty Diagnoses / Procedures Referred By Contac t Referred To Contact Radiology Diagnoses Seizure (HCC) Procedures MRI Brain WO Contrast Adria Burleson MD [address] [address] Phone: tel: fax: [address] [address] Referral ID Status Reason Start Date Expiration Date Visits Re quested Visits Authorized [id number] Closed 06/24/2023 07/23/2024 1 1 ENT PLANT OPERATOR Reason for Visit * MRI/CAT/PET Scan (Routine) - Closed Specialty Diagnoses / Procedures Referred By Contac t Referred To Contact Radiology Diagnoses Seizure (HCC) Procedures MRI Brain WO Contrast Adria Burleson MD [address] [address] Phone: tel: fax: [facility] 1 [place] [address] Referral ID Status Reason Start Date Expiration Date Visits Re quested Visits Authorized [id number] Closed 06/24/2023 07/23/2024 1 1 Encounter Details Date Type Department Care Team (Latest Contact Info) Description 07/11/2023 1:24 PM SOLVENT PLANT OPERATOR - 07/11/2023 11:59 PM SOLVENT PLANT OPERATOR Hospital Encounter [facility] [address] [place] [address] Seizure (HCC) Discharge Disposition: Discharge to home [...] on file Legal Sex Female 9:30 AM SOLVENT PLANT OPERATOR Gender Identity Female 04/05/2022 6:17 [...] [facility] (OSF order in Epic [...] Read Routine (OP Routine) 07/11/2023 2:40 PM SOLVENT PLANT OPERATOR Seizure (HCC) documented in this encounter Results * MRI Brain WO Contrast (07/11/2023 2:40 PM SOLVENT PLANT OPERATOR) Anatomical Region Laterality Modality Head and Neck N/A Magnetic Resonan ce 07/11/2023 3:40 PM SOLVENT PLANT OPERATOR Impressions 07/11/2023 4:17 PM SOLVENT PLANT OPERATOR No MRI evidence to explain the patient's seizures. Dictated by: Marcell Cerna MD The radiology attending physician has personally reviewed this study, and had reviewed and/or edited this written report and agrees with it. Electronically signed by: Tino Rodriguez M.D. Ph.D. Narrative 07/11/2023 4:17 PM SOLVENT PLANT OPERATOR EXAMINATION: Magnetic resonance imaging (MRI) of the [...] convulsions documented in this encounter Care Teams Colorer Hides And Skins Relationship Specialty Start Date End Date Servando Torre MD [address] [facility] [address] [place] [address] PCP - General Family Medicine 06/19/22 Mariela Denton MD [address] [facility] [address] [place] [address] Referring Physician Gastroenterology 06/19/22 Lexis Barroso OD [address], [place] [address] Clothing Worker 09/19/22 documented as of this encounter
--- OUTSIDE RECORDS SUMMARY | 2024-07-15 19:57 | XMS_ITS | Encounter Summary ---
Author Organization [facility] Healthcare Address [address] [place] [address] Care Team Providers Care Dredging Inspector Name Role Phone Servando Torre MD Primary Care Provider [phone]- [phone] Mariela Denton MD Unavailable [phone] -[phone] Lexis Barroso OD Unavailable +1- [phone] Reason for Visit * Reason Onset Date Comments OV on 06/27/23 07/01/2023 Encounter Details Date Type Department Care Team (Late st Contact Info) Description 07/01/2023 Telephone [facility] Medical Group Cardiology [address] [place] [address] Annemarie Bauman MA OV on [...] on file Legal Sex Female 9:30 AM RUBBISH COLLECTION SUPERVISOR Gender Identity Female 04/05/2022 6:17 PM [...] in person directly after MyChart msg wassent. ISH COLLECTION SUPERVISOR documented in this encounter Plan of Treatment Not on file documented as of this encounter Visit Diagnoses Not on filedocumented in this encounter Care Teams Dredging Inspector Relationship Specialty Start Date End Date Servando Torre MD [address] [address] PCP - General Family Medicine 06/19/22 Mariela Denton MD [address] [place] [address] Referring Physician Gastroenterology 06/19/22 Lexis Barroso OD [address], [place] [address] Automation Qa Analyst 09/19/22 documented as of this encounter
--- OUTSIDE RECORDS SUMMARY | 2024-07-15 19:57 | XMS_ITS | Encounter Summary ---
Author Organization [facility] Healthcare Address [address] [place] [address] Care Team Providers Care Materials Specialist Name Role Phone Servando Torre MD Primary Care Provider [phone]- [phone] Mariela Denton MD Unavailable [phone] -[phone] Lexis Barroso OD Unavailable +1- [phone] Reason for Visit * Reason Comments Health Maintenance Encounter Details Date Type Department Care Team (Late st Contact Info) Description 09/30/2023 1:00 PM BIOMEDICAL ENGINEERING AIDE Office Visit [facility] Medical Group Primary Care at [address] [address] Servando Torre MD [address] [place] [address] [address] [place] [address] Hypertension associated with diabetes (HCC) [...] on file Legal Sex Female 9:30 AM BIOMEDICAL ENGINEERING AIDE Gender Identity Female 04/05/2022 6:17 PM CDT Sexual Orientation Straight 04/05/2022 6: 17 PM CDT documented as of this encounter Last Filed Vital Signs Vital Sign Reading Time Taken Comments Blood Pressure 122/80 09/30/2023 1:29 PM BIOMEDICAL ENGINEERING AIDE Pulse 69 09/30/2023 1:29 PM BIOMEDICAL ENGINEERING AIDE Temperature 36.5 ??C (97.7 ??F) 09/30/2023 1:29 PM CS T Respiratory Rate 18 09/30/2023 1:29 PM BIOMEDICAL ENGINEERING AIDE Oxygen Saturation 97% 09/30/2023 1:29 PM BIOMEDICAL ENGINEERING AIDE Inhaled Oxygen Concentration - - Weight 66.7 kg (147 lb) 09/30/2023 1:29 PM BIOMEDICAL ENGINEERING AIDE Height 157.5 cm (5' 2 ) 09/30/2023 1:29 PM BIOMEDICAL ENGINEERING AIDE Body Mass Index 26.89 09/30/2023 1:29 PM BIOMEDICAL ENGINEERING AIDE documented in this encounter Patient Instructions * Patient Instructions* Servando Torre MD - 09/30/2023 1:00 PM BIOMEDICAL ENGINEERING AIDE Awaiting labs Continuing current regimen BP well controlled Thanks for coming in today! My medical assistants and I are thankful you have trusted us with your care, and hope that you received EXCELLENT care today! Please do not hesitate to call if you have any questions or concerns at [phone]. You may receive a phone call, text, MYCHART message, or e-mail asking about your care today. We would love to hear your feedback on how EXCELLENT your care wastoday! Wishing you better health, always. Dr. Torre EDICAL ENGINEERING AIDE documented in this encounter Progress Notes * [...] catheter every 8 (eight) weeks Infused at: [facility] (OSF order in Epic under [...] without complication (CMS/HCC) (HCC) Comments: in remission EDICAL ENGINEERING AIDE documented in this encounter Plan of Treatment [...] as of this encounter Care Teams Materials Specialist Relationship Specialty Start Date End Date Servando Torre MD [address] [address] PCP - General Family Medicine 06/19/22 Mariela Denton MD [address] [place] [address] Referring Physician Gastroenterology 06/19/22 Lexis Barroso OD [address] [place] [address] Kaiwhakahaere 09/19/22 documented as of this encounter
--- OUTSIDE RECORDS SUMMARY | 2024-07-15 19:57 | XMS_ITS | Encounter Summary ---
Author Organization [facility] Healthcare Address [address] [place] [address] Care Team Providers Care Stem Cutter Name Role Phone Servando Torre MD Primary Care Provider Mariela Denton MD Unavailable [phone] -[phone] Lexis Barroso OD Unavailable +1- [phone] Encounter Details Date Type Department Care Team (Late st Contact Info) Description 07/02/[address] [facility] Medical Group Primary Care at [address] [address] Servando Torre MD [address] [place] [address] [address] [place] [address] Social History Tobacco Use Types [...] file Legal Sex Female 9:30 AM SOLAR PANEL INSTALLATION SUPERVISOR Gender Identity Female 04/05/2022 6:17 PM [...] on filedocumented in this encounter Care Teams Stem Cutter Relationship Specialty Start Date End Date Servando Torre MD [facility] [address] PCP - General Family Medicine 06/19/22 Mariela Denton MD [address] [place] [address] Referring Physician Gastroenterology 06/19/22 Lexis Barroso OD [address] [place] [address] Investigator 09/19/22 documented as of this encounter
--- OUTSIDE RECORDS SUMMARY | 2024-07-15 19:57 | XMS_ITS | Encounter Summary ---
Author Organization [facility] Healthcare Address [address] [place] [address] Care Team Providers Care Drink Mixer Name Role Phone Servando Torre MD Primary Care Provider [phone] Mariela Denton MD Unavailable [phone] [phone] Lexis Barroso OD Unavailable +1- [phone] Reason for Referral * Cardiology (Routine) - Closed Specialty Diagnoses / Procedures Referred By Angel braswell Referred To Contact Diagnoses Syncope, unspecified syncope type Seizure (HCC) Bradycardia Procedures MCT Mobile Cardiac Telemetry Event Monitor Mesfin Rosenthal MD Phone: tel: fax: [facility] Medical Group Referral ID Status Reason Start Date Expiration Date Visits Re quested Visits Authorized [id number] Closed 06/27/2023 07/26/2024 1 1 R PILOT Reason for Visit * Reason Comments New Patient Referred by Dr. David sr for syncope Seizures * Consultation (Routine) - Closed Specialty Diagnoses / Procedures Referred By Contclemencia t Referred To Contact Cardiology Diagnoses Syncope, unspecified syncope type Marixa San NP [address] [facility] [address] [place] [address] Phone: tel: fax: [facility] Medical Group Cardiology at [address] [place] [address] Phone: tel: fax: Referral ID Status Reason Start Date Expiration Date V isits Requested Visits Authorized [id number] Closed Specialty Services Required 03/06/2023 04/04/2024 1 1 Encounter Details Date Type Department Care Team (Latest Contact Info) Description 06/27/2023 11:15 AM ROTOR PILOT Office Visit [facility] Medical Group Cardiology at [address] [place] [address] Mesfin Rosenthal MD [address] [facility] [address] [place] [address] Syncope, unspecified syncope type (Primary [...] on file Legal Sex Female 9:30 AM ROTOR PILOT Gender Identity Female 04/05/2022 6:17 PM CDT Sexual Orientation Straight 04/05/2022 6: 17 PM CDT documented as of this encounter Last Filed Vital Signs Vital Sign Reading Time Taken Comments Blood Pressure 160/82 06/27/2023 11:20 AM ROTOR PILOT Pulse 55 06/27/2023 11:20 AM ROTOR PILOT Temperature - - Respiratory Rate - - Oxygen Saturation 96% 06/27/2023 11:20 AM ROTOR PILOT Inhaled Oxygen Concentration - - Weight 68.6 kg (151 lb 3.2 oz) 06/27/2023 11:20 AM ROTOR PILOT Height 157.5 cm (5' 2 ) 06/27/2023 11:20 AM ROTOR PILOT Body Mass Index 27.65 06/27/2023 11:20 AM ROTOR PILOT documented in this encounter Progress Notes * [...] available records from Care everyw here from [place] to date. While I can not exclude significant tachy or more likely bradyarrhythmia I feel this is unlikely to have been a contributor to her initial episode from which workup revealed seizure disorder warranting treatment. We discussed the options at great length in this regard. To exclude potential contribution from a bradyarrhythmia 30 day shelter monitor has been advised. They verbalized understanding [...] normal sinus rhythm 62 beats per minute NM 172milliseconds QRS 92 milliseconds QT corrected 419 [...] 06/27/23 Initial visit: On 01/30/23 while in [place] during family reunion had a seizure at 96[address] ft elevation dx with suspected seizure in [place]. Brain MRI some spot noted unclear etiology [...] spells like initiallynoted. She had Echo in [place] and at [place]. No mention or issues of sig arrhythmias [...] capsule OneTouch Delica Plus Lancet 33 gauge [facility] OneTouch Ultra Test strip pantoprazole DR (PROTONIX) [...] medical record, and bloodwork/lipids. Dania Rosenthal MD, [facility] This note is dictated and transcribed using [employer] Direct Software. Under Sheriff variancesmay occur. Despite proofreading, typographical errors may occur. R PILOT documented in this encounter Miscellaneous Notes * Addendum Note - Annemarie Bauman MA - 06/27/2023 11:15 AM CSTAddended by: ANNEMARIE BAUMAN on: 06/30/2023 11:33 AM Modules accepted: Orders R PILOT documented in this encounter Plan of Treatment Not on file documented as of this encounter Procedures Procedure Name Priority Date/Time Associated Diagnosis Comments ECG 12-LEAD Routine 06/27/2023 Syncope, unspecified syncope type Seizure (HCC) Bradycardia documented in this encounter Results * MCT Mobile Cardiac Telemetry Event Monitor (06/27/2023 3:42 PM ROTOR PILOT) Anatomical Region Laterality Modality Other Narrative 08/01/2023 7:25 PM ROTOR PILOT Images from the original result were not included. AMBULATORY ALUMINUM POOL INSTALLER REPORT Patient Name: Lisa Allen Date of : 1945 ?? Requesting Physician: ?? Mesfin Rosenthal MD Date of interpretation: 08/01/23 Type of monitor : ?? 30 day shelter monitor Date of the study/Enrollment period: June [...] sinus rhythm without ectopy. Dania Rosenthal MD, [facility] 08/01/23 Voice recognition software was used to complete this document, therefore, utility hand variances may occur. Procedure Note Mesfin Rosenthal MD - 08/01/2023 Images from the original note were not included. AMBULATORY ALUMINUM POOL INSTALLER REPORT Patient Name: Lisa Allen Date of : 1945 Requesting Physician: Mesfin Rosenthal MD Date of interpretation: 08/01/23 Type of monitor : 30 day shelter monitor Date of the study/Enrollment period: June [...] sinus rhythm without ectopy. Dania Rosenthal MD, [facility] 08/01/23 Voice recognition software was used to complete this document, therefore,utility hand variances may occur. Mesfin Rosenthal MD CV [...] 06/27/2023 documented in this encounter Care Teams Drink Mixer Relationship Specialty Start Date End Date Servando Torre MD NPI: [id number] [place] [address] [address] [place] [address] PCP - General Family Medicine 06/19/22 Mariela Denton MD [address] [place] [address] Referring Physician Gastroenterology 06/19/22 Lexis Barroso OD [address] [place] [address] Copy Writer 09/19/22 documented as of this encounter
--- OUTSIDE RECORDS SUMMARY | 2024-07-15 19:58 | XMS_ITS | Encounter Summary ---
Author Organization [facility] Healthcare Address [address] [place] [address] Care Team Providers Care Cnc Milling Machinist Name Role Phone Servando Torre MD Primary Care Provider [phone]- [phone] Mariela Denton MD Unavailable [phone] [phone] Lexis Barroso OD Unavailable +1- [phone] Reason for Visit * Reason Onset Date Comments Call about jumbled speech and vomiting 3 Encounter Details Date Type Department Care Team (Late st Contact Info) Description 06/03/2023 Telephone [facility] Medical Group Primary Care at [address] [address] Servando Torre MD [address] [place] [address] [address] [place] [address] Call about jumbled speech and [...] on file Legal Sex Female 9:30 AM RULING MACHINE SET UP OPERATOR Gender Identity Female [...] patient to the ER for further evaluation. NG MACHINE SET UP OPERATOR documented in this encounter Plan of Treatment Not on file documented as of this encounter Visit Diagnoses Not on filedocumented in this encounter Care Teams Cnc Milling Machinist Relationship Specialty Start Date End Date Servando Torre MD [address] [address] PCP - General Family Medicine 06/19/22 Mariela Denton MD [address] [place] [address] Referring Physician Gastroenterology 06/19/22 Lexis Barroso OD [address], [place] [address] Bell Valet 09/19/22 documented as of this encounter
--- OUTSIDE RECORDS SUMMARY | 2024-07-15 19:58 | XMS_ITS | Encounter Summary ---
Author Organization [facility] Address [address] [place] [address] Phone Care Team Providers Care Press Smith Helper Name Role Phone Servando Torre MD Primary Care Provider +1 [phone] Mariela Denton MD Unavailable + -[phone] Lexis Barroso OD Unavailable +1- [phone] Reason for Visit * Reason Onset Date Comments Plan from [facility] on 05/16/23 05/28/2023 Encounter Details Date Type Department Care Team (Late st Contact Info) Description 05/28/2023 Documentation [facility] Gastroenterology [address] [facility] 12th [place] [address] [place] [address] Lexis Renteria, ELMO Plan from [facility] on 05/16/23 Social History Tobacco Use Types [...] on file Legal Sex Female 9:30 AM ENDOSCOPY TECH Gender Identity Female 04/05/2022 6:17 PM [...] on filedocumented in this encounter Care Teams Press Smith Helper Relationship Specialty Start Date End Date Servando Torre MD [address] [address] PCP - General Family Medicine 06/19/22 Mariela Denton MD [address] [place] [address] Referring Physician Gastroenterology 06/19/22 Lexis Barroso OD [address] [address] 1 Year Olds Preschool Teacher 09/19/22 documented as of this encounter
--- OUTSIDE RECORDS SUMMARY | 2024-07-15 19:58 | XMS_ITS | Encounter Summary ---
Author Organization [facility] Address [address] [place] [address] Phone Care Team Providers Care Academic Affairs Specialist Name Role Phone Servando Torre MD Primary Care Provider +1 [phone] Mariela Denton MD Unavailable +1 -[phone] Lexis Barroso OD Unavailable +1- [phone] Encounter Details Date Type Department Care Team (Late st Contact Info) Description 05/16/2023 9:00 AM CDT Office Visit [facility] Gastroenterology [address] [facility] 12th [place] [address] [place] [address] Mayra Zelaya, CONSTANZA [address] [place] [address] Ulcerative pancolitis without complication (CMS/HCC) (HCC) (Primary [...] on file Legal Sex Female 9:30 AM CHESTNUT TANNER Gender Identity Female 04/05/2022 6:17 PM CDT [...] in the rectosigmoid colon. Her 6TG 293 [id number] on Azathioprine 100mg daily on 05/30/2022 [...] created in part with the assistance of [employer] voice recognition software. Internetworking Technician variances may occur. documented in this encounter Plan of Treatment Not on file documented as of this encounter Visit Diagnoses Diagnosis Ulcerative pancolitis without complication (CMS/HCC) (HCC)- Primary Elevated liver enzymes Other nonspecific abnormal serum enzyme levels Follow-up examination following treatment with high-risk medication Follow-up examination following completed treatment with high-risk medications, not elsewhere classified documented in this encounter Care Teams Academic Affairs Specialist Relationship Specialty Start Date End Date Servando Torre MD [address] [address] PCP - General Family Medicine 06/19/22 Mariela Denton MD [address] [place] [address] Referring Physician Gastroenterology 06/19/22 Lexis Barroso OD [address] [place] [address] Animal Feeder 09/19/22 documented as of this encounter
--- OUTSIDE RECORDS SUMMARY | 2024-07-15 19:58 | XMS_ITS | Encounter Summary ---
Author Organization [facility] Address [address] [place] [address] Phone Care Team Providers Care Risk Modeler Name Role Phone Servando Torre MD Primary Care Provider +1 [phone] Mariela Denton MD Unavailable +1 -[phone] Lexis Barroso OD Unavailable +1- [phone] Encounter Details Date Type Department Care Team (Late st Contact Info) Description 05/05/2023 2:30 PM CDT Office Visit [facility] Epilepsy [address] [facility] 6th [place] [address] [place] [address] Adria Burleson MD [address] [facility] [address] [place] [address] Localization-related symptomatic epilepsy and epileptic [...] on file Legal Sex Female 9:30 AM INSPECTORS AND REGULATORY OFFICERS Gender Identity Female 04/05/2022 6:17 PM CDT [...] history from last visit: Fall while in [place] 01/30/2023 (high altitude) for a family reunion [...] history: Epilepsy Risk Factors: Febrile seizure(s): No BEAD WIRE INSULATOR infection: 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 -EEG at [facility] on 03/07/2023: This is an abnormal [...] Primary documented in this encounter Care Teams Risk Modeler Relationship Specialty Start Date End Date Servando Torre MD [address] [facility] [address] [place] [address] PCP - General Family Medicine 06/19/22 Mariela Denton MD [address] [place] [address] Referring Physician Gastroenterology 06/19/22 Lexis Barroso OD [address] [place] [address] Team Primary Care Physician 09/19/22 documented as of this encounter
--- OUTSIDE RECORDS SUMMARY | 2024-07-15 19:58 | XMS_ITS | Encounter Summary ---
Author Organization [facility] Healthcare Address [address] [place] [address] Care Team Providers Care Heel Seat Flap Stapler Name Role Phone Servando Torre MD Primary Care Provider Mariela Denton MD Unavailable +1 -[phone] Lexis Barroso OD Unavailable +1- [phone] Reason for Visit * Reason Onset Date Comments CHRISTELLE Questions 06/06/2023 Encounter Details Date Type Department Care Team (Late st Contact Info) Description 06/06/2023 Telephone [facility] Medical Group Primary Care at [address] [address] Servando Torre MD [address] [place] [address] [address] [place] [address] CHRISTELLE Questions Social History Tobacco [...] on file Legal Sex Female 9:[address] Gender Identity Female 04/05/2022 6:17 PM CDT Sexual Orientation Straight 04/05/2022 6: 17 PM CDT documented as of this encounter Miscellaneous Notes * Telephone Encounter - Regina Loo MA - 06/09/2023 9:[address] Spoke to pt daughter Aby, informed her that the pt can take Pravastain, Aby voiced understanding. Aby would also like a urine test for pt when she comes in for an appointment on 06/11/[address]GE * Telephone Encounter - Rhonda Olivas - 06/06/2023 3:42 PM CST CHRISTELLE Questions (Message from [facility] Access Center-Diesel Dragline Operator): Has patient been discharged at time of call? Yes Date Admitted: 06/03 Date Discharged: 06/06 Facility Admitted To: [facility] Reason for Stay? Admitted for possible [...] message need to be routed? Yes-Action Needed ICE COURT JUDGE documented in this encounter Plan of Treatment Not on file documented as of this encounter Visit Diagnoses Not on filedocumented in this encounter Care Teams Heel Seat Flap Stapler Relationship Specialty Start Date End Date Servando Torre MD [address] [facility] [address] [place] [address] PCP - General Family Medicine 06/19/22 Mariela Denton MD [address] [place] [address] Referring Physician Gastroenterology 06/19/22 Lexis Barroso OD [address] [place] [address] Drawing In Machine Tender 09/19/22 documented as of this encounter
--- OUTSIDE RECORDS SUMMARY | 2024-07-15 19:58 | XMS_ITS | Encounter Summary ---
Author Organization [facility] Healthcare Address [address] [place] [address] Care Team Providers Care Deputy Probation Officer Name Role Phone Servando Torre MD Primary Care Provider Mariela Denton MD Unavailable [phone] -[phone] Lexis Barroso OD Unavailable +1- [phone] Reason for Visit * Reason Onset Date Comments Medical Question/Miscellaneous 05/15/2023 Encounter Details Date Type Department Care Team (Late st Contact Info) Description 05/15/2023 Telephone [facility] Medical Group Primary Care at [place] [address] [place] [address] Servando Torre MD [address] [place] [address] [address] [place] [address] Medical Question/Miscellaneous Social History Tobacco [...] on file Legal Sex Female 9:30 AM LPN INSTRUCTOR Gender Identity Female 04/05/2022 6:17 PM [...] to back line. Caller???s Call back #: [phone] Does message need to be routed? No documented in this encounter Plan of Treatment Not on file documented as of this encounter Visit Diagnoses Not on filedocumented in this encounter Care Teams Deputy Probation Officer Relationship Specialty Start Date End Date Servando Torre MD [address] [address] PCP - General Family Medicine 06/19/22 Mariela Denton MD [address] [place] [address] Referring Physician Gastroenterology 06/19/22 Lexis Barroso OD [address] [place] [address] Corporate Development Analyst 09/19/22 documented as of this encounter
--- OUTSIDE RECORDS SUMMARY | 2024-07-15 19:58 | XMS_ITS | Encounter Summary ---
Author Organization [facility] Address [address] [place] [address] Phone Care Team Providers Care Stock Worker Name Role Phone Servando Torre MD Primary Care Provider +1 [phone] Mariela Denton MD Unavailable +1 [phone] Lexis Barroso OD Unavailable +1- [phone] Reason for Visit * Reason Onset Date Comments Thiopurine metabolites to be drawn at 06/10 infu brian appt 05/20/2023 Encounter Details Date Type Department Care Team (Late st Contact Info) Description 05/20/2023 Documentation [facility] Gastroenterology [address] [facility] 12th [place] [address] [place] [address] Janice Baez LPN Thiopurine metabolites to be [...] on file Legal Sex Female 9:30 AM TRANSPORT ENGINEER Gender Identity Female 04/05/2022 6:17 PM CDT Sexual Orientation Straight 04/05/2022 6: 17 PM CDT documented as of this encounter Progress Notes * Janice Baez LPN - 05/20/2023 8:16 AM CDT Msg received from CARE MANAGER Mayra Zelaya who saw pt in clinic on 05/16/2023 for follow up, as pt'sLFTs were up a little with last labs, CARE MANAGER advised that we have pt's infusion team draw thiopurine metabolites at her next infusion appt on 06/10/2023. One time external order placed for thiopurine metabolites. Order faxed to pt's infusion team at . Asked infusion team to contact our office if they are unable to draw this. Reminder set for follow up of results. -------Fax Transmission Report------- To: Recipient at [id number] Subject: Joseph Allen - Lab Order [Secure] Result: The transmission was successful. Explanation: All Pages Ok Pages Sent: 2 Connect Time: 0 minutes, 33 seconds Transmit Time: 05/20/2023 08:56 Transfer Rate: 11080 Status Code: 0000 Retry Count: 3 Job Id: [id number] Unique Id: [id number] Fax Line: 4 Fax Spring Forger: [id number] documented in this encounter Plan of Treatment [...] medications documented in this encounter Care Teams Stock Worker Relationship Specialty Start Date End Date Servando Torre MD [address] [facility] [place] [place] [address] [place] [address] PCP - General Family Medicine 06/19/22 Mariela Denton MD [address] [place] [address] Referring Physician Gastroenterology 06/19/22 Lexis Barroso OD [address] [place] [address] Project Management Engineer 09/19/22 documented as of this encounter
--- OUTSIDE RECORDS SUMMARY | 2024-07-15 19:58 | XMS_ITS | Encounter Summary ---
Author Organization [facility] Healthcare Address [address] [place] [address] Care Team Providers Care Foil Operator Name Role Phone Servando Torre MD Primary Care Provider Mariela Denton MD Unavailable +1 [phone] Lexis Barroso OD Unavailable +1- [phone] Encounter Details Date Type Department Care Team (Latest Contact Info) Description 06/11/2023 2:26 PM SUPERVISOR AIRCRAFT MAINTENANCE - 06/11/2023 11:59 PM SUPERVISOR AIRCRAFT MAINTENANCE Hospital Encounter [facility] [address] [place] [address] UTI symptoms Discharge Disposition: Discharge to [...] file Legal Sex Female 9:30 AM SUPERVISOR AIRCRAFT MAINTENANCE Gender Identity Female 04/05/2022 6:17 PM [...] at: [facility] (OSF order in [facility] under 'Procedures' tab). 1 each 5 [...] Comments URINE CULTURE Routine 06/11/2023 2:26 PM SUPERVISOR AIRCRAFT MAINTENANCE UTI symptoms documented in this encounter Results * Urine culture Urine, clean voided (06/11/2023 2:26 PM SUPERVISOR AIRCRAFT MAINTENANCE) Report Final Report: Less than 100,000 colonies/mL (clinically insignificant growth based on current clinical standards) AILEEN Comment:Testing performed by : [facility], [address] [place]., [address] Organism (CLINICALLY INSIGNIFICANT GROWTH AILEEN Urine, clean voided 06/11/2023 2:26 PM SUPERVISOR AIRCRAFT MAINTENANCE 06/12/2023 12:13 PM SUPERVISOR AIRCRAFT MAINTENANCE Narrative AILEEN - 06/13/2023 5:28 PM SUPERVISOR AIRCRAFT MAINTENANCE Testing performed by [facility] Microbiology Laboratory ([phone]) us Servando Torre MD LAB MICROBIOLOGY - GENERAL ORDERABLES Final Result [facility] [address] [place] [address] documented in this encounter Visit Diagnoses Diagnosis UTI symptoms documented in this encounter Care Teams Foil Operator Relationship Specialty Start Date End Date Servando Torre MD [facility] [address] [place] [address] PCP - General Family Medicine 06/19/22 Mariela Denton MD [address] [place] [address] Referring Physician Gastroenterology 06/19/22 Lexis Barroso OD [address] [place] [address] Horticulture Instructor 09/19/22 documented as of this encounter
--- OUTSIDE RECORDS SUMMARY | 2024-07-15 19:58 | XMS_ITS | Encounter Summary ---
Author Organization [facility] Address [address] [place] [address] Phone Care Team Providers Care Die Finisher Name Role Phone Servando Torre MD Primary Care Provider +1 [phone] Mariela Denton MD Unavailable +1 [phone] Lexis Barroso OD Unavailable +1- [phone] Encounter Details Date Type Department Care Team (Late st Contact Info) Description 06/09/2023 Telephone [facility] Epilepsy [address] [facility] 6th [place] [address] [place] [address] Adria Burleson MD [address] [facility] [address] [place] [address] Social History Tobacco Use Types [...] file Legal Sex Female 9:30 AM MAINTENANCE SUPERVISOR Gender Identity Female 04/05/2022 6:17 PM CDT Sexual Orientation Straight 04/05/2022 6: 17 PM CDT documented as of this encounter Miscellaneous Notes * Telephone Encounter - Sherita Licona RN - 06/09/2023 2:26 PM MAINTENANCE SUPERVISOR Spoke with Aby. Relayed Dr. Anthony's response. Verbalized understanding. She will keep our office updated and let us know if Lias has any further symptoms/seizure events. TENANCE SUPERVISOR * Telephone Encounter - Sherita Licona RN - 06/09/2023 8:44 AM MAINTENANCE SUPERVISOR Aby Johansen called with an update. She reports that Lisa was admitted to [facility] on Friday and discharged Friday afternoon. 06/01/23, [...] reasons why they should not travel with [place] at this time? Lisa is going to follow up with PCP on Friday. They will discuss providing a new UA to see if UTI has completely resolved. Any recommendations at this time? Thanks~Sherita AED: LTG 100 mg bid TENANCE SUPERVISOR documented in this encounter Plan of Treatment Not on file documented as of this encounter Visit Diagnoses Not on filedocumented in this encounter Discontinued Medications Medication Sig Discontinue Reason Start Date End Da te levETIRAcetam (KEPPRA) 500 mg tablet Take 1 tablet (500 mg total) by mouth 2 (two) times a day 03/17/2023 06/09/2023 documented as of this encounter Care Teams Die Finisher Relationship Specialty Start Date End Date Servando Torre MD [facility] [address] [address] PCP - General Family Medicine 06/19/22 Mariela Denton MD [facility] [address] [place] [address] Referring Physician Gastroenterology 06/19/22 Lexis Barroso OD [address] [place] [address] Auto Seat Cover Installer 09/19/22 documented as of this encounter
--- OUTSIDE RECORDS SUMMARY | 2024-07-15 19:58 | XMS_ITS | Encounter Summary ---
Author Organization [facility] Healthcare Address [address] [place] [address] Care Team Providers Care Senior Graduate Advisor Name Role Phone Servando Torre MD Primary Care Provider [phone] Mariela Denton MD Unavailable [phone] [phone] Lexis Barroso OD Unavailable +1- [phone] Reason for Visit * Reason Comments CHRISTELLE Admitted for possibl e stroke, or seizure from epilepsy, UTI wanted to take her off pravastatin and switch to rosuvastatin Encounter Details Date Type Department Care Team (Late st Contact Info) Description 06/11/2023 1:30 PM SENIOR CARE MANAGER Office Visit [facility] Medical Group Primary Care at [address] [address] Servando Torre MD [address] [place] [address] [address] [place] [address] Hospital discharge follow-up (Primary Dx); [...] file Legal Sex Female 9:30 AM SENIOR CARE MANAGER Gender Identity Female 04/05/2022 6:17 PM CDT Sexual Orientation Straight 04/05/2022 6: 17 PM CDT documented as of this encounter Last Filed Vital Signs Vital Sign Reading Time Taken Comments Blood Pressure 130/86 06/11/2023 1:44 PM SENIOR CARE MANAGER Pulse 91 06/11/2023 1:44 PM SENIOR CARE MANAGER Temperature 36.8 ??C (98.3 ??F) 06/11/2023 1:44 PM CS T Respiratory Rate 18 06/11/2023 1:44 PM SENIOR CARE MANAGER Oxygen Saturation 95% 06/11/2023 1:44 PM SENIOR CARE MANAGER Inhaled Oxygen Concentration - - Weight 68.7 kg (151 lb 8 oz) 06/11/2023 1:44 PM SENIOR CARE MANAGER Height 157.5 cm (5' 2 ) 06/11/2023 1:44 PM SENIOR CARE MANAGER Body Mass Index 27.71 06/11/2023 1:44 PM SENIOR CARE MANAGER documented in this encounter Patient Instructions * Patient Instructions* Servando Torre MD - 06/11/2023 1:30 PM SENIOR CARE MANAGER Empiric antibiotics give there may still be infection present Continue current regimen otherwise Continue good efforts to stay hydrated, drink water Thanks for coming in today! My medical assistants and I are thankful you have trusted us with your care, and hope that you received EXCELLENT care today! Please do not hesitate to call if you have any questions or concerns at [phone]. You may receive a phone call, text, MYCHART message, or e-mail asking about your care today. We would love to hear your feedback on how EXCELLENT your care wastoday! Wishing you better health, always. Dr. Torre OR CARE MANAGER documented in this encounter Ordered Prescriptions [...] living is documented in the chart. Servando Dunlpa MD have personally reviewed pertinent Hospital/ER data [...] catheter every 8 (eight) weeks Infused at: [facility] (OSF order in Epic under [...] been provided to and reviewed with the patient/healthcare advisory services manager prior to discharge. IServando MD have personally reviewed pertinent Hospital/ER data including [employer] andCare Everywhere if available. This patient's discharge medication list has been reviewed and reconciled with her medication list in the office chart and has also been reviewed with patient and/or caregiver. I have noted any changes. Servando Torre MD OR CARE MANAGER documented in this encounter Miscellaneous Notes * Assessment & Plan Note - Servando Torre MD - 06/11/2023 1:42 PM SENIOR CARE MANAGER Associated Problem(s): Hospital discharge follow-up (Resolved 08/07/2023) I have reviewed the hospital record, medications, and relevant testing from Lisa Allen's recent admission. Complications and discharge plan have been noted, reviewed. Post-discharge testing has been ordered. OR CARE MANAGER documented in this encounter Plan of Treatment Not on file documented as of this encounter Procedures Procedure Name Priority Date/Time Associated Diagnosis Comments POCT URINALYSIS, AUTO W/O SCOPE Routine 06/11/2023 2:26 PM SENIOR CARE MANAGER UTI symptoms documented in this encounter Results * (ABNORMAL) POCT UA, AUTO W/O SCOPE (06/11/2023 2:26 PM SENIOR CARE MANAGER) Color, Urine, POC Yellow Clarity, ur, POC Clear Clear Glucose, ur, POC Negative Negative MG/DL Bilirubin, ur, POC Negative Negative, Small, Moderate, Large Ketones, ur, POC Negative Negative Specific [place], POC 1.015 1.003 - 1.030 Blood, ur, POC Trace(A) Negative pH, ur, POC 7.0 5.0 - 8.0 Protein, ur, POC Negative Negative Urobilinogen, Urine, POC 0.2 mg/dL Leukocytes, ur, POC Trace(A) Negative Nitrite, ur, POC Negative Negative Appearance, fld Clear Clear Urine, clean voided 06/11/2023 2:26 PM SENIOR CARE MANAGER Servando Torre MD POINT OF CARE TEST ORDERABL ES Final Result * Urine culture Urine, clean voided (06/11/2023 2:26 PM SENIOR CARE MANAGER) Report Final Report: Less than 100,000 colonies/mL (clinically insignificant growth based on current clinical standards) AILEEN MATTHEW Comment:Testing performed by : [facility], [address] [place]., [address] Organism (CLINICALLY INSIGNIFICANT GROWTH AILEEN Urine, clean voided 06/11/2023 2:26 PM SENIOR CARE MANAGER 06/12/2023 12:13 PM SENIOR CARE MANAGER Narrative AILEEN MATTHEW - 06/13/2023 5:28 PM SENIOR CARE MANAGER Testing performed by [facility] Microbiology Laboratory ([phone]) Servando Torre MD LAB MICROBIOLOGY - GENERAL ORDERABLES Final Result Performing Organization Address City/State/ZIP Co ne Phone Number AILEEN [address] Department [place] [address] documented in this encounter Visit [...] 06/11/2023 documented in this encounter Care Teams Senior Graduate Advisor Relationship Specialty Start Date End Date Servando Torre MD [facility] [address] PCP - General Family Medicine 06/19/22 Mariela Denton MD [facility] [address] [place] [address] Referring Physician Gastroenterology 06/19/22 Lexis Barroso OD [address] [place] [address] Peanut Picker 09/19/22 documented as of this encounter
--- OUTSIDE RECORDS SUMMARY | 2024-07-15 19:58 | XMS_ITS | Encounter Summary ---
Author Organization [facility] Address [address] [place] [address] Phone Care Team Providers Care Music Composer Name Role Phone Servando Torre MD Primary Care Provider [phone] [phone] Mariela Denton MD Unavailable [phone] [phone] Lexis Barroso OD Unavailable +1- [phone] Reason for Visit * Reason Onset Date Comments Updated Entyvio Order - Provider Change 04/29/20 Encounter Details Date Type Department Care Team (Late st Contact Info) Description 04/29/2023 Documentation [facility] Gastroenterology [address] [facility] 12th [place] [address] [place] [address] Janice Baez LPN Updated Entyvio Order - [...] on file Legal Sex Female 9:30 AM [employer]IV[employer]ITY [employer]NER[employer] REP Gender Identity Female 04/05/2022 6:17 PM CDT Sexual Orientation Straight 04/05/2022 6: 17 PM CDT documented as of this encounter Ordered Prescriptions Prescription Sig Dispense Quantity Refills Last Filled Start Date End Date vedolizumab (ENTYVIO) 300 mg recon solnIndications:Ch ronic ulcerative colitis, unspecified complication (HCC) Infuse 5 mL (300 mg total) into a venous catheter every 8 (eight) weeks Infused at: [facility] (OSF order in Epic under 'Procedures' tab). 1 each 5 04/29/2023 documented in this encounter Progress Notes * Janice Baez LPN - 04/29/2023 11:09 AM CDT Pt was previously established in Dr. Mariela Denton's practice for her IBD care, however, Dr. Denton has left the colton. Pt is now scheduled to establish care [...] requested. -------Fax Transmission Report------- To: Recipient at [phone] Subject: Joseph Allen - Updated Infusion Order [Secure] Result: The transmission was successful. Explanation: All Pages Ok Pages Sent: 3 Connect Time: 0 minutes, 45 seconds Transmit Time: 04/29/2023 12:58 Transfer Rate: 39466 Status Code: 0000 Retry Count: 0 Job Id: [id number] Unique Id: [id number] Fax Line: 1 Fax Long Chain Beamer: [id number] documented in this encounter Plan of Treatment [...] documented in this encounter Care Teams Music Composer Relationship Specialty Start Date End Date Servando Torre MD [address] [address] PCP - General Family Medicine 06/19/22 Mariela Denton MD [address] [place] [address] Referring Physician Gastroenterology 06/19/22 Lexis Barroso OD [address] [place] [address] Clinical Transformation Specialist 09/19/22 documented as of this encounter
--- OUTSIDE RECORDS SUMMARY | 2024-07-15 19:58 | XMS_ITS | Encounter Summary ---
Author Organization [facility] Address [address] [place] [address] Phone Care Team Providers Care Director Of Cardiac Cath Lab Name Role Phone Servando Torre MD Primary Care Provider +1 [phone] Mariela Denton MD Unavailable +1 -[phone] Lexis aBrroso OD Unavailable +1- [phone] Encounter Details Date Type Department Care Team (Late st Contact Info) Description 05/07/2023 Telephone [facility] [address] [facility] 6th [place] [address] [place] [address] Kiara Houser Social History Tobacco [...] file Legal Sex Female 9:30 AM MOLD MOVER Gender Identity Female 04/05/2022 6:17 PM [...] in this encounter Care Teams Director Of Cardiac Cath Lab Relationship Specialty Start Date End Date Servando Torre MD [address] [address] PCP - General Family Medicine 06/19/22 Mariela Denton MD [address] [place] [address] Referring Physician Gastroenterology 06/19/22 Lexis Barroso OD [address] [place] [address] Formulation Technician 09/19/22 documented as of this encounter
--- OUTSIDE RECORDS SUMMARY | 2024-07-15 19:58 | XMS_ITS | Encounter Summary ---
Author Organization [facility] Healthcare Address [address] [place] [address] Care Team Providers Care Malted Milk Supervisor Name Role Phone Servando Torre MD Primary Care Provider Mariela Denton MD Unavailable +1 -[phone] Lexis Barroso OD Unavailable +1- [phone] Reason for Visit * Reason Onset Date Comments Medical Question/Miscellaneous 05/07/2023 Encounter Details Date Type Department Care Team (Late st Contact Info) Description 05/07/2023 Telephone [facility] Primary Care at [address] [address] Servando Torre MD [address] [place] [address] [address] [place] [address] Medical Question/Miscellaneous Social History Tobacco [...] on file Legal Sex Female 9:30 AM ORTHOTIC FINISH GRINDING TECHNICIAN Gender Identity Female 04/05/2022 6:17 PM [...] needed, just FYI Caller???s Call back #: [phone] Does message need to be routed? Yes-FYI Only documented in this encounter Plan of Treatment Not on file documented as of this encounter Visit Diagnoses Not on filedocumented in this encounter Care Teams Malted Milk Supervisor Relationship Specialty Start Date End Date Servando Torre MD [address] [address] PCP - General Family Medicine 06/19/22 Mariela Denton MD [address] [place] [address] Referring Physician Gastroenterology 06/19/22 Lexis Barroso OD [address] [place] [address] Director Physical 09/19/22 documented as of this encounter
--- OUTSIDE RECORDS SUMMARY | 2024-07-15 19:58 | XMS_ITS | Encounter Summary ---
Author Organization [facility] Address [address] [place] [address] Phone Care Team Providers Care Pile Driver Operator Barge Mounted Name Role Phone Servando Torre MD Primary Care Provider [phone] [phone] Mariela Denton MD Unavailable +1 -[phone] Lexis Barroso OD Unavailable +1- [phone] Encounter Details Date Type Department Care Team (Late st Contact Info) Description 05/07/2023 Telephone [facility] [address] [facility] 6th [place] [address] [place] [address] Lizzy Young Social History Tobacco [...] on file Legal Sex Female 9:30 AM HEDIS COORDINATOR Gender Identity Female 04/05/2022 6:17 PM [...] on filedocumented in this encounter Care Teams Pile Driver Operator Barge Mounted Relationship Specialty Start Date End Date Servando Torre MD [facility] [address] PCP - General Family Medicine 06/19/22 Mariela Denton MD [address] [place] [address] Referring Physician Gastroenterology 06/19/22 Lexis Barroso OD [address] [place] [address] Tablet Machine Operator 09/19/22 documented as of this encounter
--- OUTSIDE RECORDS SUMMARY | 2024-07-15 19:58 | XMS_ITS | Encounter Summary ---
Author Organization [facility] Address [address] [place] [address] Phone Care Team Providers Care Window Assembler Name Role Phone Servando Torre MD Primary Care Provider +1 [phone] Mariela Denton MD Unavailable +1 -[phone] Lexis Barroso OD Unavailable +1- [phone] Encounter Details Date Type Department Care Team (Late st Contact Info) Description 05/14/2023 Telephone [place] [id number] [facility] First Floor [address] [place] [address] Pablo Burt MSW Social History [...] file Legal Sex Female 9:30 AM CASHIERS SUPERVISOR Gender Identity Female 04/05/2022 6:17 PM CDT Sexual Orientation Straight 04/05/2022 6: 17 PM CDT documented as of this encounter Miscellaneous Notes * Telephone Encounter - Pablo Burt MSW - 05/14/2023 2:50 PM CDT This Manager Research And Development (SW) called [facility] per a referral. Tatyana [...] independence and determining level of care that Lisa needs. This SW agreed that they might have to let Lisa try to perform her own ADLs to see if she is able to. This SW also discussed ALFs and beginning the process of looking for an SENIOR CARE in case it is needed. Family agreed [...] SW suggested resources such as Support Groups, In-Invoice Control Clerk Care, and resources through [facility]. SW emailed the below: I'm glad we were able to talk yesterday. I've collected the resources that we discussed below and anything else that I think could help. Always feel free to reach out to us any time. Home Care Agencies Below is a list of home care agencies. These agencies do a mix of nut packer care and helping individuals with activities of daily living, like grooming and showering. Be sure to make a list of your specific needs to ensure that they are able to help in the areas that you need. I've also included a sheet from the Alzheimer's Association on how to choose a manager group home and what questions to ask. Additionally, some find it more helpful and less expensive to hire a private caregiver. I would suggest checking with local organizations, such as churches and local nursing/social work schools to see if they have anyone that can help with caregiving. Many caregivers have also found the website [employer] to be helpful in finding a local independent background checked aide. The website does cost money to use. [facility] [address] [place] [address] https://Versartis/ Eduardo Parikh ([place]) [address] [place] [id number] https://www.ieCrowd.Online Warmongers/crossnore/home Home Instead [address] [facility] [address] [place] [address] https://www.[facility].Online [place]/location/851 Adult Day Centers Below is the information for [facility]'s Adult Day Center. I would suggest checkingout [facility] other programs and services too: [facility] https://[facility]/greybull.org/ [address] [place] [address] Guides for helping to determine if someone is safe to be home alone: Below is a guide that can be useful for determining if someone is safe to be home alone. While you are testing this, please continue to be as observant as you can and have a plan to get someone to her house as quickly as possible if needed. https://alzheimer.ca/sites/default/files/documents/tfisyemlvvzfh-cnyoa-ynqtxrhu- okz-hxzngr-tghpr.pdf Home Safety Guides Whether living alone or not, here are two guides to creating a safe home for someone with dementia: https://www.jerry.nih.gov/health/xbet-mteiur-ebv-alzheimers-disease https://www.alz.org/help-support/caregiving/safety/home-safety Fall detector, landline This device appears to only need a landline phone, it also has an optional ???Fall Detection.?? I'd suggest calling customer service and support and seeing if this meets your needs. Additionally, doyou think your Mom would be willing to wear this? https://www.TrustYou/product/qpng-stqkos-brsqqyjd/ Education Resources Upcoming local classes: ?[facility] Alzheimer Disease Research [place] presentations. These are presentations from experts in the field of dementia and dementia caregiving. There is a new presentation over Zoom every month and they keep a library of past presentations. Please check here: https://[facility]/center-events// ?The Alzheimer's Association has many monthly classes in the community. For a listing of upcoming classes, their locations, and times please contact their 17/02 Helpline at . ?[facility] Care: [facility] has caregiver training classes and support groups in [place] and [place]. I'd suggest checking out their website and calling them for more information: https://[facility]/greybull.org/ 356.809.9896 ?[employer] a local group focused on educating and training caregivers has a Youtube channel full of useful videos and trainings: https://www.Jpwholesaleube.com/@memorycarehomesolutions/videos Books: ?The 36 Hour Day by Ender [...] filedocumented in this encounter Care Teams Window Assembler Relationship Specialty Start Date End Date Servando Torre MD [address] [facility] [address] [place] [address] PCP - General Family Medicine 06/19/22 Mariela Denton MD [address] [place] [address] Referring Physician Gastroenterology 06/19/22 Lexis Barroso OD [address] [place] [address] Office Helper 09/19/22 documented as of this encounter
--- OUTSIDE RECORDS SUMMARY | 2024-07-15 19:59 | XMS_ITS | Encounter Summary ---
Author Organization [facility] Healthcare Address [address] [place] [address] Care Team Providers Care Pharmacogeneticist Name Role Phone Servando Torre MD Primary Care Provider [phone] Mariela Denton MD Unavailable +1 -[phone] Lexis Barroso OD Unavailable +1- [phone] Reason for Visit * MRI/CAT/PET Scan (Routine) - Closed Specialty Diagnoses / Procedures Referred By Contac t Referred To Contact Procedures Neuro CT Outside Reference Karl Turner MD PhD [address] [facility] [address] [place] [address] Phone: tel: fax: Referral ID Status Reason Start Date Expiration Date Visits Re quested Visits Authorized [id number] Closed 02/17/2023 03/18/2024 1 1 Encounter Details Date Type Department Care Team (Latest Contact Info) Description 02/17/2023 5:44 PM CDT - 02/17/2023 11:59 PM CDT Hospital Encounter [facility] [address] [place] [address] Discharge Disposition: Discharge to home or [...] on file Legal Sex Female 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 ??There will be no report generated by a [facility] Radiologist. Narrative RAD_PACS_[facility] - 02/17/2023 5:44 PM CDT EXAMINATION: ??Images For Reference Purposes Only us Karl Turner MD PhD IMG CT PROCEDURES Final Re sult RAD_PACS_[facility] documented in this encounter Visit Diagnoses Not on filedocumented in this encounter Care Teams Pharmacogeneticist Relationship Specialty Start Date End Date Servando Torre MD 2 [facility] 130 [place] [address] PCP - General Family Medicine 06/19/22 Mariela Denton MD [address] [place] [address] Referring Physician Gastroenterology 06/19/22 Lexis Barroso OD [address], [place] [address] Mineral Technologist 09/19/22 documented as of this encounter
--- OUTSIDE RECORDS SUMMARY | 2024-07-15 19:59 | XMS_ITS | Encounter Summary ---
Author Organization [facility] Address [address] [facility] [address] [place] [address] Care Team Providers Care Commercial Underwriter Name Role Phone Servando Torre MD Primary Care Provider [phone]- [phone] Mariela Denton MD Unavailable +1 -[phone] Lexis Barroso OD Unavailable +1- [phone] Reason for Visit * Reason Onset Date Comments Medical Records Request 02/19/2023 Encounter Details Date Type Department Care Team (Late st Contact Info) Description 02/19/2023 Telephone [facility] Medical [facility] Primary Care at [address] [address] Servando Torre MD [address] [place] [address] [address] [place] [address] Medical Records Request Social History [...] on file Legal Sex Female 9:30 AM VISITOR SERVICES SPECIALIST Gender Identity Female 04/05/2022 6:17 PM [...] regarding images that have been requested from [facility] in [facility]. Inquiry if they havebeen received yet. Attempted to warm transfer to backline, no answer. Advised caller the office will return her call. Caller???s Call back #: [phone] Does message need to be routed? Yes-Action Needed documented in this encounter Plan of Treatment Not on file documented as of this encounter Visit Diagnoses Not on filedocumented in this encounter Care Teams Commercial Underwriter Relationship Specialty Start Date End Date Servando Torre MD [address] [facility] 130 [place] [address] PCP - General Family Medicine 06/19/22 Mariela Detnon MD [address] [place] [address] Referring Physician Gastroenterology 06/19/22 Lexis Barroso OD [address] [place] [address] Inspector Cold Working 09/19/22 documented as of this encounter
--- OUTSIDE RECORDS SUMMARY | 2024-07-15 19:59 | XMS_ITS | Encounter Summary ---
Author Organization [facility] Medical Group Address [address] [facility] [address] [place] [address] Care Team Providers Care Photo Producer Name Role Phone Servando Torre MD Primary Care Provider +1- [phone] Mariela Denton MD Unavailable +1 -[phone] Lexis Barroso OD Unavailable +1- [phone] Reason for Visit * Reason Comments Follow-up 3 month f/u Encounter Details Date Type Department Care Team (Late st Contact Info) Description 03/27/2023 2:00 PM CDT Office Visit [facility] Primary Care at [address] [address] Servando Torre MD [address] [place] [address] [address] [place] [address] Primary hypertension (Primary Dx); Prediabetes; [...] file Legal Sex Female 9:30 AM 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 You may receive a phone call, text, [...] and children were not included. (Diabetes Care 31:9500-6393, 2008). The eAG is not equivalent to [...] epilepticus (CMS/HCC) (HCC) Comments: continues follow up [facility] neuro tolerating Keppra Need for pneumococcal 20-valent conjugate vaccination - Pneumococcal conjugate vaccine 20-valent IM (Prevnar-20) Servando Torre MD This office note has been partially dictated using Nexgence software, and as a result portions of the record may have been created with this software. Occasional wrong-word or 'vkzxz-z-wklh' substitutions may have occurred due to the [...] 03/27/2023 documented in this encounter Care Teams Photo Producer Relationship Specialty Start Date End Date Servando Torre MD [address] [facility] [address] [place] [address] PCP - General Family Medicine 06/19/22 Mariela Denton MD [address] [place] [address] Referring Physician Gastroenterology 06/19/22 Lexis Barroso OD [address] [place] [address] Glass Mould Cleaner 09/19/22 documented as of this encounter
--- OUTSIDE RECORDS SUMMARY | 2024-07-15 19:59 | XMS_ITS | Encounter Summary ---
Author Organization [facility] Healthcare Address [address] [place] [address] Care Team Providers Care Digital Marketing Associate Name Role Phone Servando Torre MD Primary Care Provider [phone] Mariela Denton MD Unavailable +1 -[phone] Lexis Barroso OD Unavailable +1- [phone] Reason for Visit * MRI/CAT/PET Scan (Routine) - Closed Specialty Diagnoses / Procedures Referred By Contac t Referred To Contact Procedures Neuro CT Outside Reference Karl Turner MD PhD [address] [facility] [address] [place] [address] Phone: tel: fax: Referral ID Status Reason Start Date Expiration Date Visits Re quested Visits Authorized [id number] Closed 02/17/2023 03/18/2024 1 1 Encounter Details Date Type Department Care Team (Latest Contact Info) Description 02/17/2023 5:44 PM CDT - 02/17/2023 11:59 PM CDT Hospital Encounter [facility] [address] [place] [address] Discharge Disposition: Discharge to home or [...] on file Legal Sex Female 9:30 AM LOADER Gender Identity Female 04/05/2022 6:17 PM [...] on filedocumented in this encounter Care Teams Digital Marketing Associate Relationship Specialty Start Date End Date Servando Torre MD 2 [facility] 130 [place] [address] PCP - General Family Medicine 06/19/22 Mariela Denton MD [address] [place] [address] Referring Physician Gastroenterology 06/19/22 Lexis Barroso OD [address], [place] [address] Grocery Clerk Checking 09/19/22 documented as of this encounter
--- OUTSIDE RECORDS SUMMARY | 2024-07-15 19:59 | XMS_ITS | Encounter Summary ---
Author Organization [facility] Medical Group Address [address] [facility] [address] [place] [address] Care Team Providers Care Percussion Welding Machine Operator Name Role Phone Servando Torre MD Primary Care Provider +1- [phone] Mariela Denton MD Unavailable +1 -[phone] Lexis Barroso OD Unavailable +1- [phone] Reason for Visit * Reason Onset Date Comments Medical Question/Miscellaneous 02/21/2023 Encounter Details Date Type Department Care Team (Late st Contact Info) Description 02/21/[address] 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 * Telephone Encounter - Mayra Winters - 02/21/2023 12:16 PM CDT Medical Question/Miscellaneous Caller???s Concern: [facility] calling to inform doctor that due to staffing they are unable to see this patient in 's zip code area Caller???s Call back #: [phone] Does message need to be routed? Yes-FYI Only documented in this encounter Plan of Treatment Not on file documented as of this encounter Visit Diagnoses Diagnosis Balance problem- Primary Abnormality of gait Multiple fractures of ribs associated with chest compression and cardiopulmonary resuscitation documented in this encounter Care Teams Percussion Welding Machine Operator Relationship Specialty Start Date End Date Servando Torre MD 2 [facility] 130 [place] [address] PCP - General Family Medicine 06/19/22 Mariela Denton MD [address] [place] [address] Referring Physician Gastroenterology 06/19/22 Lexis Barroso OD [address] [place] [address] Institutional Aide 09/19/22 documented as of this encounter
--- OUTSIDE RECORDS SUMMARY | 2024-07-15 19:59 | XMS_ITS | Encounter Summary ---
Author Organization [facility] Medical Group Address [address] [facility] [address] [place] [address] Care Team Providers Care Tire Setter Name Role Phone Servando Torre MD Primary Care Provider +1- [phone] Mariela Denton MD Unavailable +1 -[phone] Lexis Barroso OD Unavailable +1- [phone] Reason for Visit * Reason Onset Date Comments Additional Services Or Orders 03/13/2023 Encounter Details Date Type Department Care Team (Late st Contact Info) Description 03/13/2023 Telephone [facility] Medical [facility] Primary Care at [address] [address] Servando Torre MD [address] [place] [address] [address] [place] [address] Additional Services Or Orders Social [...] file Legal Sex Female 9:30 AM NURSE ESTHETICIAN Gender Identity Female 04/05/2022 6:17 PM CDT Sexual Orientation Straight 04/05/2022 6: 17 PM CDT documented as of this encounter Miscellaneous Notes * Telephone Encounter - Regina Loo MA - 03/14/2023 4:45 PM CDT Spoke to Kathy from [employer], she stated that she figured out the [...] address, phone/fax offacility): home Caller's Callback #: [phone] Additional Comments: Nurse Kathy quintanilla/ [facility] also would like a verbal run down of patients medical history based on medications, please reach out. Does message need to be routed? Yes-Action Needed documented in this encounter Plan of Treatment Not on file documented as of this encounter Visit Diagnoses Diagnosis Memory impairment- Primary Memory loss documented in this encounter Care Teams Tire Setter Relationship Specialty Start Date End Date Servando Torre MD [address] [facility] [address] [place] [address] PCP - General Family Medicine 06/19/22 Mariela Denton MD [address] [place] [address] Referring Physician Gastroenterology 06/19/22 Lexis Barroso OD [address] [place] [address] Battery Installer 09/19/22 documented as of this encounter
--- OUTSIDE RECORDS SUMMARY | 2024-07-15 19:59 | XMS_ITS | Encounter Summary ---
Author Organization [facility] Medical Group Address [address] [facility] [address] [place] [address] Care Team Providers Care Magnetic Resonance Technologist Name Role Phone Servando Torre MD Primary Care Provider +1- [phone] Mariela Denton MD Unavailable +1 -[phone] Lexis Barroso OD Unavailable +1- [phone] Encounter Details Date Type Department Care Team (Late st Contact Info) Description 03/21/[address] 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
--- OUTSIDE RECORDS SUMMARY | 2024-07-15 19:59 | XMS_ITS | Encounter Summary ---
Author Organization [facility] Address [address] [facility] [address] [place] [address] Care Team Providers Care Imaging Manager Name Role Phone Servando Torre MD Primary Care Provider [phone]- [phone] Mariela Denton MD Unavailable +1 -[phone] Lexis Barroso OD Unavailable +1- [phone] Encounter Details Date Type Department Care Team (Late st Contact Info) Description 03/21/2023 3:00 PM CDT Lab [facility] Medical [facility] Outpatient Lab at [address] [address] Nodule of kidney (Primary Dx) [...] file Legal Sex Female 9:30 AM MANAGER ENGAGEMENT Gender Identity Female 04/05/2022 6:17 PM CDT Sexual Orientation Straight 04/05/2022 6: 17 PM CDT documented as of this encounter Plan of Treatment Not on file documented as of this encounter Visit Diagnoses Diagnosis Nodule of kidney- Primary documented in this encounter Care Teams Imaging Manager Relationship Specialty Start Date End Date Servando Torre MD [address] [facility] [address] [place] [address] PCP - General Family Medicine 06/19/22 Mariela Denton MD [address] [place] [address] Referring Physician Gastroenterology 06/19/22 Lexis Barroso OD [address] [place] [address] Motorcycle Designer 09/19/22 documented as of this encounter
--- OUTSIDE RECORDS SUMMARY | 2024-07-15 19:59 | XMS_ITS | Encounter Summary ---
Author Organization [facility] Healthcare Address [address] [place] [address] Care Team Providers Care Expenditure Requisition Clerk Name Role Phone Servando Torre MD Primary Care Provider Mariela Denton MD Unavailable +1 -[phone] Lexis Barroso OD Unavailable +1- [phone] Encounter Details Date Type Department Care Team (Latest Contact Info) Description 02/17/2023 5:44 PM CDT - 02/17/2023 11:59 PM CDT Hospital Encounter [facility] Radiology [facility]) [address] [place] [address] Discharge Disposition: Discharge to home or self [...] on file Legal Sex Female 9:30 AM LANGUAGE ASST Gender Identity Female 04/05/2022 6:17 PM CDT [...] only and have not been reviewed by [facility] Radiology. ??There will be no report generated by a [facility] Radiologist. Narrative RAD_PACS_BJ - 02/17/2023 5:44 PM CDT EXAMINATION: ??Images For Reference Purposes Only us Karl Turner MD PhD IMG XR PROCEDURES Final Re sult RAD_PACS_[facility] documented in this encounter Visit Diagnoses Not on filedocumented in this encounter Care Teams Expenditure Requisition Clerk Relationship Specialty Start Date End Date Sevrando Torre MD [facility]2 [facility] 130 [place] [address] PCP - General Family Medicine 06/19/22 Mariela Denton MD [facility] [address] [place] [address] Referring Physician Gastroenterology 06/19/22 Lexis Barroso OD [address] [place] [address] Sat Instructor 09/19/22 documented as of this encounter
--- OUTSIDE RECORDS SUMMARY | 2024-07-15 19:59 | XMS_ITS | Encounter Summary ---
Author Organization [facility] Healthcare Address [address] [place] [address] Care Team Providers Care Activities Manager Name Role Phone Servando Torre MD Primary Care Provider [phone] Mariela Denton MD Unavailable [phone] -[phone] Lexis Barroso OD Unavailable +1- [phone] Reason for Referral * Neurology (Routine) - Closed Specialty Diagnoses / Procedures Referred By Angel braswell Referred To Contact Diagnoses Seizure (HCC) Procedures EEG Adria Burleson MD [address] [place] [address] Phone: tel: fax: [address] [address] Referral ID Status Reason Start Date Expiration Date Visits Re quested Visits Authorized [id number] Closed 02/27/2023 03/28/2024 1 1 Reason for Visit * Neurology (Routine) - Closed Specialty Diagnoses / Procedures Referred By Contclemencia braswell Referred To Contact Diagnoses Seizure (HCC) Procedures EEG Adria Burleson MD [address] [place] [address] Phone: tel: fax: [facility] 1 [place] [address] Referral ID Status Reason Start Date Expiration Date Visits Re quested Visits Authorized [id number] Closed 02/27/2023 03/28/2024 1 1 Encounter Details Date Type Department Care Team (Latest Contact Info) Description 03/07/2023 1:49 PM CDT - 03/07/2023 11:59 PM CDT Hospital Encounter [facility] EEG [facility]) [address] [place] [address] Ellie Sun Seizure (HCC) Discharge Disposition: Discharge [...] on file Legal Sex Female 9:30 AM BENCH LOOM WEAVER Gender Identity Female 04/05/2022 6:17 PM CDT [...] Extended EEG Report Patient Name: Lisa Allen [facility] Medical Record Number (MRN): [id number] [facility] Record: [id number] Date of (): 1945 EEG Date: 03/07/2023 Ordering Provider: Adria Burleson MD CC: Servando Torre Start Time: 03/07/2023 3:12:54 PM ? End Time: 03/07/2023 4:13:22 PM Introduction: Ms. Allen is a 77 y.o. 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 EEG was performed to evaluate for seizures. This is a 32 channel EEG recording acquired on a BandPage EEG-1200 acquisition system. Scalp electrodes were placed [...] convulsions documented in this encounter Care Teams Activities Manager Relationship Specialty Start Date End Date Servando Torre MD [address] [facility] 130 [place] [address] PCP - General Family Medicine 06/19/22 Mariela Denton MD [facility] [address] [place] [address] Referring Physician Gastroenterology 06/19/22 Lexis Barroso OD [address] [place] [address] Casting Tester 09/19/22 documented as of this encounter
--- OUTSIDE RECORDS SUMMARY | 2024-07-15 19:59 | XMS_ITS | Encounter Summary ---
Author Organization [facility] Address [address] [facility] [address] [place] [address] Care Team Providers Care Filter Pulp Washer Name Role Phone Servando Torre MD Primary Care Provider +1- [phone] Mariela Denton MD Unavailable [phone] -[phone] Lexis Barroso OD Unavailable +1- [phone] Reason for Referral * MRI/CAT/PET Scan (Routine) - Closed Specialty Diagnoses / Procedures Referred By Contac t Referred To Contact Radiology Diagnoses Liver nodule Procedures CT Abdomen Pelvis W Contrast Marixa San NP [address] [facility] 130 [place] [address] Phone: tel: fax: [address] [address] Referral ID Status Reason Start Date Expiration Date Visits Re quested Visits Authorized [id number] Closed 02/24/2023 2024 1 1 Encounter Details Date Type Department Care Team (Late st Contact Info) Description 02/24/[address] [facility] Medical Group Primary Care at [address] [address] Marixa San NP [address] [facility] [address] [place] [address] Liver nodule (Primary Dx) Social [...] on file Legal Sex Female 9:30 AM FRUIT HARVESTER Gender Identity Female 04/05/2022 6:17 PM CDT [...] AM T: ??03/20/2023 10:50 AM Report ID: [id number] Reading Location: ??[id number] Procedure Note Emanuel Baldwin MD - 03/20/2023 [...] Emanuel Baldwin M.D. RB: RB Report ID: [id number] Reading Location: [id number] Marixa San NP IMG CT PROCEDURES Final Result documented in this encounter Visit Diagnoses Diagnosis Liver nodule- Primary Other specified disorders of liver Liver nodule Other specified disorders of liver documented in this encounter Care Teams Filter Pulp Washer Relationship Specialty Start Date End Date Servando Torre MD [address] [facility] [address] [place] [address] PCP - General Family Medicine 06/19/22 Mariela Denton MD [address] [facility] [address] [place] [address] Referring Physician Gastroenterology 06/19/22 Leixs Barroso OD [address] [place] [address] Air Boatswain 09/19/22 documented as of this encounter
--- OUTSIDE RECORDS SUMMARY | 2024-07-15 19:59 | XMS_ITS | Encounter Summary ---
Author Organization [facility] Medical Group Address [address] [facility] [address] [place] [address] Care Team Providers Care Electronic Publishing Specialist Name Role Phone Servando Torre MD Primary Care Provider [phone] Mariela Denton MD Unavailable [phone] [phone] Lexis Barroso OD Unavailable +1- [phone] Reason for Referral * MRI/CAT/PET Scan (Routine) - Closed Specialty Diagnoses / Procedures Referred By Contac t Referred To Contact Radiology Diagnoses Nodule of kidney Procedures MRI Abdomen Kidney W WO Contrast Marixa San NP [address] [facility] [address] [place] [address] Phone: tel: fax: [address] [address] Referral ID Status Reason Start Date Expiration Date Visits Re quested Visits Authorized [id number] Closed 03/21/2023 04/19/2024 1 1 Encounter Details Date Type Department Care Team (Late st Contact Info) Description 03/21/2023 Orders Only [facility] Primary Care at [address] [address] Marixa San NP [address] [facility] [address] [place] [address] Nodule of kidney (Primary Dx) [...] file Legal Sex Female 9:30 AM ELECTRONICS TECHNOLOGY INSTRUCTOR Gender Identity Female 04/05/2022 6:17 PM [...] PM T: ??04/25/2023 2:51 PM Report ID: [id number] Reading Location: ??[id number] Procedure Note Mars Doll MD - 04/25/2023 [...] Mars Doll M.D. JA: JAYLEEN Report ID: [id number] Reading Location: [place] [address] Marixa San POLE SHAVER IMG MRI PROCEDURES Final Result documented in this encounter Visit Diagnoses Diagnosis Nodule of kidney- Primary Nodule of kidney documented in this encounter Care Teams Electronic Publishing Specialist Relationship Specialty Start Date End Date Servando Torre MD [address] [facility] [address] [place] [address] PCP - General Family Medicine 06/19/22 Mariela Denton MD [address] [place] [address] Referring Physician Gastroenterology 06/19/22 Lexis Barroso OD [address] [place] [address] Inside Sales Administrator 09/19/22 documented as of this encounter
--- OUTSIDE RECORDS SUMMARY | 2024-07-15 19:59 | XMS_ITS | Encounter Summary ---
Author Organization [facility] Medical Group Address [address] [facility] [address] [place] [address] Care Team Providers Care Department Store Manager Name Role Phone Servando Torre MD Primary Care Provider +1 [phone] Mariela Denton MD Unavailable [phone] -[phone] Lexis Barroso OD Unavailable +1- [phone] Reason for Referral * Consultation (Routine) - Closed Specialty Diagnoses / Procedures Referred By Angel braswell Referred To Contact Cardiology Diagnoses Syncope, unspecified syncope type Marixa San NP [address] [place] [address] [address] [place] [address] Phone: tel: fax: [facility] Cardiology at [address] [place] [address] Phone: tel: fax: Referral ID Status Reason Start Date Expiration Date V isits Requested Visits Authorized [id number] Closed Specialty Services Required 03/06/2023 04/04/2024 1 1 Question Answer Please select the performing region: [facility] [[id number]] Please select the performing department: [facility] [[id number]] # of visits: 1 Encounter Details Date Type Department Care Team (Late st Contact Info) Description 03/06/2023 Orders Only [facility] Primary Care at [address] [id number] Marixa San NP [address] [facility] 130 [place] [address] Syncope, unspecified syncope type (Primary Dx) Social [...] on file Legal Sex Female 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
--- OUTSIDE RECORDS SUMMARY | 2024-07-15 19:59 | XMS_ITS | Encounter Summary ---
Author Organization [facility] Medical [facility] Address [address] [facility] [address] [place] [address] Care Team Providers Care Steam Setter Name Role Phone Servando Torre MD Primary Care Provider [phone]- [phone] Mariela Denton MD Unavailable [phone] -[phone] Lexis Barroso OD Unavailable +1- [phone] Reason for Referral * Home Health (Routine) - Closed Specialty Diagnoses / Procedures Referred By Contac t Referred To Contact Home Health Services / Home Health and Hospice Diagnoses Seizure (HCC) Multiple fractures of ribs associated with chest compression and cardiopulmonary resuscitation Balance problem Servando Torre MD [address] [place] [address] Phone: tel: fax: [facility] Home Care Services [facility] [address] [place] [address] Referral ID Status Reason Start Date Expiration Date V isits Requested Visits Authorized [id number] Closed Specialty Services Required 02/20/2023 03/21/2024 1 [...] Description 02/20/2023 2:15 PM CDT Office [address] 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 You may receive a phone call, text, MYCHART message, or e-mail asking about your care today. We would love to hear your feedback on how EXCELLENT your care wastoday! Wishing you better health, always. Dr. Torre * Attachments The following attachments cannot be sent through Care Everywhere. * Acetaminophen/Codeine (By mouth) (Surinamese) * Concussion (AfterCare(R) Instructions(ER/ED)) (Surinamese) documented in this encounter Ordered Prescriptions Prescription [...] staying with her since she returned from [place]. She still having some rib pain from the fractures, but that is improved. Her breathing is much better than when she was at [place], she is not need any oxygen. She [...] tremors, seizures (no seizures since returned from [place]),syncope, facial asymmetry, speech difficulty, light- headedness and [...] current clinical standards) Testing performed by: [facility], [address] [place] [address] Organism 02/12/2023 (CLINICALLY INSIGNIFICANT GROWTH Final eGFR [...] Will check on neurology EEG ordered for [facility] No report of seizure activity in the [...] office note has been partially dictated using [employer] software, and as a result portions of the record may have been created with this software. Occasional wrong-word or 'nwllr-g-teun' substitutions may have occurred due to the [...] gait documented in this encounter Care Teams Steam Setter Relationship Specialty Start Date End Date Servando Torre MD [facility] [address] PCP - General Family Medicine 06/19/22 Marieal Denton MD [facility] [address] [place] [address] Referring Physician Gastroenterology 06/19/22 Lexis Barroso OD [address] [place] [address] Latex Thread Machine Operator 09/19/22 documented as of this encounter
--- OUTSIDE RECORDS SUMMARY | 2024-07-15 19:59 | XMS_ITS | Encounter Summary ---
Author Organization [facility] Address [address] [place] [address] Phone Care Team Providers Care Manager Corporate Responsibility Name Role Phone Servando Torre MD Primary Care Provider [phone] [phone] Mariela Denton MD Unavailable [phone] [phone] Lexis Barroso OD Unavailable +1- [phone] Encounter Details Date Type Department Care Team (Late st Contact Info) Description 04/11/2023 Telephone [facility] [address] [facility] 6th [place] [address] [place] [address] Lizzy Yougn Social History Tobacco Use Types Packs/Day Years [...] on file Legal Sex Female 9:30 AM FLOUR BROKER Gender Identity Female 04/05/2022 6:17 PM [...] filedocumented in this encounter Care Teams Manager Corporate Responsibility Relationship Specialty Start Date End Date Servando Torre MD [facility] [address] [address] PCP - General Family Medicine 06/19/22 Mariela Denton MD [address] [place] [address] Referring Physician Gastroenterology 06/19/22 Lexis Barroso OD [address] [place] [address] Scallop Shucker 09/19/22 documented as of this encounter
--- OUTSIDE RECORDS SUMMARY | 2024-07-15 19:59 | XMS_ITS | Encounter Summary ---
Author Organization [facility] Address [address] [place] [address] Phone Care Team Providers Care Yard Caller Name Role Phone Servando Torre MD Primary Care Provider [phone] [phone] Mariela Denton MD Unavailable [phone] [phone] Lexis Barroso OD Unavailable +1- [phone] Encounter Details Date Type Department Care Team (Late st Contact Info) Description 03/17/2023 4:30 PM CDT Office Visit [facility] Epilepsy [address] [facility] 6th [place] [address] [place] [address] Adria Burleson MD [address] [facility] [address] [place] [address] Localization-related symptomatic epilepsy and epileptic [...] file Legal Sex Female 9:30 AM DIRECTOR STRATEGIC ACCOUNT MANAGEMENT Gender Identity Female 04/05/2022 6:17 PM CDT [...] /encephalomalacia/gliosis and scattered microhemorrhages and generalized atrophy. [facility] EEG showed right frontotemporal epileptiform discharges and slowing. 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 Reflexes: Hogeu's present on the left but absent on [...] [facility]) for her cognitive symptoms, and her neuropathy is likely due to her chronic, long-standing, previously poorly-co ntrolled type 2 diabetes mellitus. Her asymmetric hyperreflexia on the left arm/leg is concerning for central pathology (I.e., likely structural cervical myelopathy). Given she is otherwise asymptomatic (I.e. no symptoms concerning for acute myelopathy or acute intracranial pathology), we will waitfor her evaluation at the [facility] prior to obtaining further imaging for epilepsy work-up, myelopathy work-up, and cognitive decline work-up to avoid repeat imaging. Of note, given her handedness and unclear lateralization of her clinical and electrographic findings, neuropsychological testing may provide additional benefit in terms of lateralization for her epilepsy. Recommendations: Neuroimaging: Pending [facility] evaluation. Will plan to obtain MRI brain epilepsy protocol with and without contrast and MRI cervical spine without contrast in coordination with the [facility] Electrodiagnostics: None Antiseizure medications (ASM): continue levetiracetam [...] as of this encounter Care Teams Yard Caller Relationship Specialty Start Date End Date Servando Torre MD [address] [address] PCP - General Family Medicine 06/19/22 Mariela Denton MD [address] [place] [address] Referring Physician Gastroenterology 06/19/22 Lexis Barroso OD [address] [place] [address] Autobody Technician 09/19/22 documented as of this encounter
--- OUTSIDE RECORDS SUMMARY | 2024-07-15 19:59 | XMS_ITS | Encounter Summary ---
Author Organization [facility] Address [address] [place] [address] Phone Care Team Providers Care Tobacco Acreage Measurer Name Role Phone Servando Torre MD Primary Care Provider [phone] Mariela Denton MD Unavailable [phone] Lexis Barroso OD Unavailable [phone]- [phone] Reason for Referral * Consultation (Routine) - Closed Specialty Diagnoses / Procedures Referred By Angel braswell Referred To Contact Neurology Diagnoses Seizure (HCC) Adria Burleson MD 1 [place] [address] Phone: tel: fax: Kimberly Padilla MD 1 [place] [address] Phone: tel: fax:[phone] Referral ID Status Reason Start Date Expiration Date V isits Requested Visits Authorized [id number] Closed Specialty Services Required 03/03/2023 04/01/2024 1 1 Question Answer Please select the performing region: [facility] (All Locations) [[id number]] To provider: KIMBERLY PADILLA [[id number]] # of visits: 1 Reason for Visit * Consultation (Routine) - Closed Specialty Diagnoses / Procedures Referred By Angel t Referred To Contact Neurology Diagnoses Seizure (HCC) Marixa San, CONST[place] [address] [place] [address] Phone: tel: fax: [facility] Epilepsy [address] [facility] 6th [place] [address] [place] [address] Phone: tel: fax: Referral ID Status Reason Start Date Expiration Date V isits Requested Visits Authorized [id number] Closed Specialty Services Required 02/07/2023 03/08/2024 1 1 Encounter Details Date Type Department Care Team (Late st Contact Info) Description 02/24/2023 4:00 PM CDT Office Visit [facility] Epilepsy [address] [facility] 6th [place] [address] [place] [address] Adria Burleson MD [address] [facility] [address] [address] [place] [address] Seizure (HCC) Social History Tobacco [...] file Legal Sex Female 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 I personally reviewed external/internal notes. Fall while in [place] 01/30/2023 (high altitude) for a family reunion [...] history: Epilepsy Risk Factors: Febrile seizure(s): No REED FIXER 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 -EEG at 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
--- OUTSIDE RECORDS SUMMARY | 2024-07-15 19:59 | XMS_ITS | Encounter Summary ---
Author Organization [facility] Address [address] [facility] [address] [place] [address] Care Team Providers Care Auto Self Service Station Attendant Name Role Phone Servando Torre MD Primary Care Provider +1- [phone] Mariela [place] MD Unavailable +1 -[phone] Lexis Barroso OD Unavailable +1- [phone] Encounter Details Date Type Department Care Team (Late st Contact Info) Description 03/21/2023 Telephone [facility] Primary Care at [address] [address] Regina Loo, KRISTINA Social History [...] file Legal Sex Female 9:30 AM LEAD ANDROID DEVELOPER Gender Identity Female 04/05/2022 6:17 PM [...] documented as of this encounter Care Teams Auto Self Service Station Attendant Relationship Specialty Start Date End Date Servando Torre MD 2121 [facility] 130 [place] [address] PCP - General Family Medicine 06/19/22 Mariela [place] MD [address] [place] [address] Referring Physician Gastroenterology 06/19/22 Lexis Barroso OD [address] [place] [address] Plastic Surgeon 09/19/22 documented as of this encounter
--- OUTSIDE RECORDS SUMMARY | 2024-07-15 19:59 | XMS_ITS | Encounter Summary ---
Author Organization [facility] Healthcare Address [address] [place] [address] Care Team Providers Care Drying Room Attendant Name Role Phone Servando Torre MD Primary Care Provider Mariela [place] MD Unavailable +1 -[phone] Lexis Barroso OD Unavailable +1- [phone] Encounter Details Date Type Department Care Team (Latest Contact Info) Description 02/17/2023 5:44 PM CDT - 02/17/2023 11:59 PM CDT Hospital Encounter [facility]) [address] [place] [address] Discharge Disposition: Discharge to home or self [...] on file Legal Sex Female 9:30 AM CONFIGURATION DEVELOPER Gender Identity Female 04/05/2022 6:17 PM [...] and have not been reviewed by [facility] Radiology. ??There will be no report generated by a [facility] Radiologist. Narrative RAD_PACS_BJ - 02/17/2023 5:44 PM CDT EXAMINATION: ??Images For Reference Purposes Only us Karl Turner MD PhD IMG XR PROCEDURES Final Re sult RAD_PACS_[facility] documented in this encounter Visit Diagnoses Not on filedocumented in this encounter Care Teams Drying Room Attendant Relationship Specialty Start Date End Date Servando Torre MD [facility]2 [facility] [address] [place] [address] PCP - General Family Medicine 06/19/22 Mariela [place] MD [facility] [address] [place] [address] Referring Physician Gastroenterology 06/19/22 Lexis Barroso OD [address] [place] [address] Middle School French Teacher 09/19/22 documented as of this encounter
--- OUTSIDE RECORDS SUMMARY | 2024-07-15 19:59 | XMS_ITS | Encounter Summary ---
Author Organization [facility] Address [address] [place] [address] Phone Care Team Providers Care Web Ui Developer Name Role Phone Servando Torre MD Primary Care Provider +1 [phone] Mariela [place] MD Unavailable +1 -[phone] Lexis Barroso OD Unavailable +1- [phone] Reason for Visit * Reason Onset Date Comments PA for Azathiopurine 04/04/2023 PA Approved 04/04/2023 Encounter Details Date Type Department Care Team (Late st Contact Info) Description 04/04/2023 Documentation [facility] Gastroenterology [address] [facility] 12th [place] [address] [place] [phone] Coty Sorensen for Azathiopurine; PA Approved Social [...] Legal Sex Female 9:30 AM DIRECTOR OF CLAIMS Gender Identity Female 04/05/2022 6:17 PM CDT Sexual Orientation Straight 04/05/2022 6: 17 PM CDT documented as of this encounter Progress Notes * Coty Sorensen - 04/04/2023 3:58 PM CDT 04/07/23 - PA approved through [email or web address] starting 01/04/2023 through 04/04/2024 (#90 per 90 days) PA submitted to [email or web address] through [facility] for Aza (#90 per 90 days) documented in this encounter Plan of Treatment Not on file documented as of this encounter Visit Diagnoses Not on filedocumented in this encounter Care Teams Web Ui Developer Relationship Specialty Start Date End Date Servando Torre MD [address] [address] PCP - General Family Medicine 06/19/22 Mariela [place] MD [facility] [address] [place] [address] Referring Physician Gastroenterology 06/19/22 Lexis Barroso OD [address] [place] [address] Legal Mediator 09/19/22 documented as of this encounter
--- OUTSIDE RECORDS SUMMARY | 2024-07-15 19:59 | XMS_ITS | Encounter Summary ---
Author Organization [facility] Healthcare Address [address] [place] [address] Care Team Providers Care Back Gray Cloth Washer Name Role Phone Servando Torre MD Primary Care Provider Mariela [place] MD Unavailable +1 -[phone] Lexis Barroso OD Unavailable +1- [phone] Encounter Details Date Type Department Care Team (Latest Contact Info) Description 02/17/2023 5:44 PM CDT - 02/17/2023 11:59 PM CDT Hospital Encounter [facility]) [address] [place] [address] Discharge Disposition: Discharge to home or self [...] file Legal Sex Female 9:30 AM SENIOR FORMULATION SCIENTIST Gender Identity Female 04/05/2022 6:17 PM CDT [...] only and have not been reviewed by [facility] Radiology. ??There will be no report generated by a [facility] Radiologist. Narrative RAD_PACS_BJ - 02/17/2023 5:44 PM CDT EXAMINATION: ??Images For Reference Purposes Only us Karl Turner MD PhD IMG CT PROCEDURES Final Re sult RAD_PACS_[facility] documented in this encounter Visit Diagnoses Not on filedocumented in this encounter Care Teams Back Gray Cloth Washer Relationship Specialty Start Date End Date Servando Torre MD [facility] [address] PCP - General Family Medicine 06/19/22 Mariela [place] MD [facility] [address] [place] [address] Referring Physician Gastroenterology 06/19/22 Lexis Barroso OD [address] [place] [address] Rubber Goods Finisher 09/19/22 documented as of this encounter
--- OUTSIDE RECORDS SUMMARY | 2024-07-15 19:59 | XMS_ITS | Encounter Summary ---
Author Organization [facility] Address [address] [facility] [address] [place] [address] Care Team Providers Care Risk Control Manager Name Role Phone Servando Torre MD Primary Care Provider +1- [phone] Mariela [place] MD Unavailable +1 -[phone] Lexis Barroso OD Unavailable +1- [phone] Encounter Details Date Type Department Care Team (Late st Contact Info) Description 02/21/2023 Orders Only [facility] Primary Care at [place] [address] [place] [address] Marixa San NP 2122 [facility] 130 [place] [address] Liver nodule Social History Tobacco [...] file Legal Sex Female 9:30 AM MANAGER REGISTRATION Gender Identity Female 04/05/2022 6:17 PM CDT [...] Modality Abdomen N/A Ultrasound us Marixa San HOME SPECIALIST IMG US PROCEDURES Final Result documented in this encounter Visit Diagnoses Diagnosis Liver nodule Other specified disorders of liver documented in this encounter Care Teams Risk Control Manager Relationship Specialty Start Date End Date Servando Torre MD [address] [facility] 130 [place] [address] PCP - General Family Medicine 06/19/22 Mariela [place] MD [address] [facility] 8124 [address] Referring Physician Gastroenterology 06/19/22 Lexis Barroso OD [address] [place] [address] Motor Expert 09/19/22 documented as of this encounter
--- OUTSIDE RECORDS SUMMARY | 2024-07-15 19:59 | XMS_ITS | Encounter Summary ---
Author Organization [facility] Healthcare Address [address] [place] [address] Care Team Providers Care Insurance Rater Name Role Phone Servando Torre MD Primary Care Provider [phone] Mariela [place] MD Unavailable +1 -[phone] Lexis Barroso OD Unavailable +1- [phone] Reason for Visit * MRI/CAT/PET Scan (Routine) - Closed Specialty Diagnoses / Procedures Referred By Contac t Referred To Contact Procedures Neuro CT Outside Reference Karl Turner MD PhD [address] [facility] [address] [place] [address] Phone: tel: fax: Referral ID Status Reason Start Date Expiration Date Visits Re quested Visits Authorized [id number] Closed 02/17/2023 03/18/2024 1 1 Encounter Details Date Type Department Care Team (Latest Contact Info) Description 02/17/2023 5:44 PM CDT - 02/17/2023 11:59 PM CDT Hospital Encounter [facility]) [address] [place] [address] Discharge Disposition: Discharge to home or [...] file Legal Sex Female 9:30 AM MARKETING INFORMATION ANALYST Gender Identity Female 04/05/2022 6:17 PM [...] and have not been reviewed by [facility] Radiology. ??There will be no report generated by a [facility] Radiologist. Narrative RAD_PACS_BJ - 02/17/2023 5:44 PM CDT EXAMINATION: ??Images For Reference Purposes Only us Karl Turner MD PhD IMG CT PROCEDURES Final Re sult RAD_PACS_[facility] documented in this encounter Visit Diagnoses Not on filedocumented in this encounter Care Teams Insurance Rater Relationship Specialty Start Date End Date Servando Torre MD 2 [facility] 130 [place] [address] PCP - General Family Medicine 06/19/22 Mariela [place] MD [address] [place] [address] Referring Physician Gastroenterology 06/19/22 Lexis Barroso OD [address], [place] [address] E Commerce Strategist 09/19/22 documented as of this encounter
--- OUTSIDE RECORDS SUMMARY | 2024-07-15 19:59 | XMS_ITS | Encounter Summary ---
Author Organization [facility] Healthcare Address [address] [place] [address] Care Team Providers Care It Security Engineer Name Role Phone Servando Torre MD Primary Care Provider +1- [phone] Mariela [place] MD Unavailable +1 -[phone] Lexis Barroso OD Unavailable +1- [phone] Reason for Referral * MRI/CAT/PET Scan (Routine) - Closed Specialty Diagnoses / Procedures Referred By Contclemencia braswell Referred To Contact Radiology Diagnoses Liver nodule Procedures CT Abdomen Pelvis W Contrast Mraixa San NP [address] [place] [address] Phone: tel: fax: [address] [address] Referral ID Status Reason Start Date Expiration Date Visits Re quested Visits Authorized [id number] Closed 02/24/2023 2024 1 1 Reason for Visit * MRI/CAT/PET Scan (Routine) - Closed Specialty Diagnoses / Procedures Referred By Contac t Referred To Contact Radiology Diagnoses Liver nodule Procedures CT Abdomen Pelvis W Contrast Marixa San NP [address] [place] [place] [address] Phone: tel: fax: [address] [address] Referral ID Status Reason Start Date Expiration Date Visits Re quested Visits Authorized [id number] Closed 02/24/2023 2024 1 1 Encounter Details Date Type Department Care Team (Latest Contact Info) Description 03/18/2023 2:07 PM CDT - 03/18/2023 11:59 PM CDT Hospital Encounter [facility] 1 [place] [address] Liver nodule Discharge Disposition: Discharge to home [...] file Legal Sex Female 9:30 AM MANAGER CREDIT Gender Identity Female 04/05/2022 6:17 PM CDT [...] AM T: ??03/20/2023 10:50 AM Report ID: [id number] Reading Location: ??[id number] Procedure Note Emanuel Baldwin MD - 03/20/2023 [...] Emanuel Baldwin M.D. RB: MARISOL Report ID: [id number] Reading Location: [place] [address] Marixa San NP IMG CT PROCEDURES Final [...] mL documented in this encounter Care Teams It Security Engineer Relationship Specialty Start Date End Date Servando Torre MD [address] [facility] [address] [place] [address] PCP - General Family Medicine 06/19/22 Mariela [place] MD [address] [place] [address] Referring Physician Gastroenterology 06/19/22 Lexis Barroso OD [address] [place] [address] Photo Lab Manager 09/19/22 documented as of this encounter
--- OUTSIDE RECORDS SUMMARY | 2024-07-15 19:59 | XMS_ITS | Encounter Summary ---
Author Organization [facility] Address [address] [facility] [address] [place] [address] Care Team Providers Care Head Of Digital Advertising & Integration Name Role Phone Servando Torre MD Primary Care Provider +1- [phone] Mariela [place] MD Unavailable +1 -[phone] Lexis Barroso OD Unavailable +1- [phone] Encounter Details Date Type Department Care Team (Late st Contact Info) Description 04/01/2023 Telephone [facility] Primary Care at [address] [address] Regina Loo MA Social History [...] on file Legal Sex Female 9:30 AM P 3 ARMAMENT/ORDNANCE IMA TECHNICIAN Gender Identity Female 04/05/2022 6:17 PM [...] documented as of this encounter Care Teams Head Of Digital Advertising & Integration Relationship Specialty Start Date End Date Servando Torre MD [address] [address] PCP - General Family Medicine 06/19/22 Mariela [place] MD [address] [place] [address] Referring Physician Gastroenterology 06/19/22 Lexis Barroso OD [address] [place] [address] Graduate Rn 09/19/22 documented as of this encounter
--- OUTSIDE RECORDS SUMMARY | 2024-07-15 19:59 | XMS_ITS | Encounter Summary ---
Author Organization [facility] Healthcare Address [address] [place] [address] Care Team Providers Care Underwater Welder Name Role Phone Servando Torre MD Primary Care Provider Mariela [place] MD Unavailable +1 -[phone] Lexis Barroso OD Unavailable +1- [phone] Encounter Details Date Type Department Care Team (Latest Contact Info) Description 02/17/2023 5:44 PM CDT - 02/17/2023 11:59 PM CDT Hospital Encounter [facility]) [address] [place] [address] Discharge Disposition: Discharge to home or self [...] on file Legal Sex Female 9:30 AM PICKER AND SORTER LOAD AND UNLOAD Gender Identity Female 04/05/2022 6:17 PM CDT [...] only and have not been reviewed by [facility] Radiology. ??There will be no report generated by a [facility] Radiologist. Narrative RAD_PACS_BJ - 02/17/2023 5:44 PM CDT EXAMINATION: ??Images For Reference Purposes Only us Karl Turner MD PhD IMG XR PROCEDURES Final Re sult RAD_PACS_[facility] documented in this encounter Visit Diagnoses Not on filedocumented in this encounter Care Teams Underwater Welder Relationship Specialty Start Date End Date Servando Torre MD [facility]2 [facility] 130 [place] [address] PCP - General Family Medicine 06/19/22 Mariela [place] MD [facility] [address] [place] [address] Referring Physician Gastroenterology 06/19/22 Lexis Barroso OD [address] [place] [address] Expediter Service Order 09/19/22 documented as of this encounter
--- OUTSIDE RECORDS SUMMARY | 2024-07-15 19:59 | XMS_ITS | Encounter Summary ---
Author Organization [facility] Address [address] [facility] [address] [place] [address] Care Team Providers Care Hydraulic Oil Tool Operator Name Role Phone Servando Torre MD Primary Care Provider +1- [phone] Mariela [place] MD Unavailable +1 -[phone] Lexis Barroso OD Unavailable +1- [phone] Reason for Visit * Reason Onset Date Comments Medical Question/Miscellaneous 03/10/2023 Medical Records Request 03/10/2023 Encounter Details Date Type Department Care Team (Late st Contact Info) Description 03/10/2023 Telephone [facility] Primary Care at [address] [address] Servando Torre MD [address] [place] [address] [address] [place] [address] Medical Question/Miscellaneous ; Medical Records [...] file Legal Sex Female 9:30 AM DIRECTOR 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 [facility] Date Needed: as soon as possible Delivery Method: Fax Fax number to use for return of records: [phone] Caller???s Callback #: [phone] Additional Comments/Concerns: n/a Does the message need to be routed? Yes-Action Needed * Telephone Encounter - Regina Toscano MA - 03/11/2023 10:12 AM CDT [facility] * Telephone Encounter - Dennis Dodge - 03/10/2023 4:15 PM CDT Medical Question/Miscellaneous Caller???s Concern: Avani with [facility] received demographic page and referral. There are no discipline orders such as nursing or therapy or visit note for the patient. Please fax. Caller???s Call back #: [phone] Does message need to be routed? Yes-Action Needed documented in this encounter Plan of Treatment Not on file documented as of this encounter Visit Diagnoses Not on filedocumented in this encounter Care Teams Hydraulic Oil Tool Operator Relationship Specialty Start Date End Date Servando Torre MD [facility] [address] [address] PCP - General Family Medicine 06/19/22 Mariela [place] MD [address] [place] [address] Referring Physician Gastroenterology 06/19/22 Lexis Barroso OD [address] [place] [address] Endbander 09/19/22 documented as of this encounter
--- OUTSIDE RECORDS SUMMARY | 2024-07-15 19:59 | XMS_ITS | Encounter Summary ---
Author Organization [facility] Address [address] [facility] [address] [place] [address] Care Team Providers Care Boat Carpenter Name Role Phone Servando Torre MD Primary Care Provider +1- [phone] Mariela [place] MD Unavailable +1 -[phone] Lexis Barroso OD Unavailable +1- [phone] Reason for Visit * Reason Onset Date Comments Medical Question/Miscellaneous 03/17/2023 Encounter Details Date Type Department Care Team (Late st Contact Info) Description 03/17/[address] 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 Caller???s Call back #: [phone] Does message need to be routed? Yes-FYI Only documented in this encounter Plan of Treatment Not on file documented as of this encounter Visit Diagnoses Not on filedocumented in this encounter Care Teams Boat Carpenter Relationship Specialty Start Date End Date Servando Torre MD [facility] [address] [address] PCP - General Family Medicine 06/19/22 Mariela [place] MD [address] [place] [address] Referring Physician Gastroenterology 06/19/22 Lexis Barroso OD [address] [place] [address] Mold Presser 09/19/22 documented as of this encounter
--- OUTSIDE RECORDS SUMMARY | 2024-07-15 19:59 | XMS_ITS | Encounter Summary ---
Author Organization [facility] Address [address] [facility] [address] [place] [address] Care Team Providers Care Phlebotomy Support Tech Name Role Phone Servando Torre MD Primary Care Provider +1- [phone] Mariela [place] MD Unavailable +1 -[phone] Lexis Barroso OD Unavailable +1- [phone] Reason for Visit * Reason Onset Date Comments Medical Question/Miscellaneous 04/03/2023 Encounter Details Date Type Department Care Team (Late st Contact Info) Description 04/03/2023 Telephone [facility] Medical [facility] Primary Care at [address] [address] Servando Torre MD [address] [place] [address] 130 [place] [address] Medical Question/Miscellaneous Social History Tobacco [...] on file Legal Sex Female 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 Caller???s Call back #: [phone] Does message need to be routed? Yes-FYI Only documented in this encounter Plan of Treatment Not on file documented as of this encounter Visit Diagnoses Not on filedocumented in this encounter Care Teams Phlebotomy Support Tech Relationship Specialty Start Date End Date Servando Torre MD [facility]2 [facility] 130 [place] [address] PCP - General Family Medicine 06/19/22 Mariela [place] MD [address] [place] [address] Referring Physician Gastroenterology 06/19/22 Lexis Barroso OD [address] [place] [address] Sign Painter Apprentice 09/19/22 documented as of this encounter
--- OUTSIDE RECORDS SUMMARY | 2024-07-15 19:59 | XMS_ITS | Encounter Summary ---
Author Organization [facility] Healthcare Address [address] [place] [address] Care Team Providers Care Elementary Assistant Teacher Name Role Phone Servando Torre MD Primary Care Provider [phone] Mariela [place] MD Unavailable +1 -[phone] Lexis Barroso OD Unavailable +1- [phone] Reason for Visit * MRI/CAT/PET Scan (Routine) - Closed Specialty Diagnoses / Procedures Referred By Contac t Referred To Contact Procedures Neuro MR Outside Reference Karl Turner MD PhD [address] [facility] [address] [place] [address] Phone: tel: fax: Referral ID Status Reason Start Date Expiration Date Visits Re quested Visits Authorized [id number] Closed 02/17/2023 03/18/2024 1 1 Encounter Details Date Type Department Care Team (Latest Contact Info) Description 02/17/2023 5:44 PM CDT - 02/17/2023 11:59 PM CDT Hospital Encounter [facility]) [address] [place] [address] Discharge Disposition: Discharge to home or [...] on file Legal 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 ??There will be no report generated by a [facility] Radiologist. Narrative RAD_PACS_BJ - 02/17/2023 5:44 PM CDT EXAMINATION: ??Images For Reference Purposes Only us Karl Turner MD PhD IMG MRI PROCEDURES Final R esult RAD_PACS_[facility] documented in this encounter Visit Diagnoses Not on filedocumented in this encounter Care Teams Elementary Assistant Teacher Relationship Specialty Start Date End Date Servando Torre MD 2 [facility] 130 [place] [address] PCP - General Family Medicine 06/19/22 Mariela [place] MD [address] [place] [address] Referring Physician Gastroenterology 06/19/22 Lexis Barroso OD [address] [address] Derrick Worker Well Service 09/19/22 documented as of this encounter
--- OUTSIDE RECORDS SUMMARY | 2024-07-15 19:59 | XMS_ITS | Encounter Summary ---
Author Organization [facility] Address [address] [place] [address] Care Team Providers Care Workforce Planner Name Role Phone Servando Torre MD Primary Care Provider +1- [phone] Mariela Denton MD Unavailable +1 -[phone] Lexis Barroso OD Unavailable +1- [phone] Encounter Details Date Type Department Care Team (Late st Contact Info) Description 03/12/2023 Orders Only [facility] Medical [facility] Primary Care at [place] [address] [place] [address] Servando Torre MD [address] [place] [address] [address] [place] [address] Type 2 diabetes mellitus with [...] on file Legal Sex Female 9:30 AM PANTOGRAPH WATCHER Gender Identity Female 04/05/2022 6:17 PM CDT Sexual Orientation Straight 04/05/2022 6: 17 PM CDT documented as of this encounter Plan of Treatment Not on file documented as of this encounter Visit Diagnoses Diagnosis Type 2 diabetes mellitus with hyperglycemia, without long-term current use of insulin (HCC)- Primary documented in this encounter Care Teams Workforce Planner Relationship Specialty Start Date End Date Servando Torre MD [address] [address] PCP - General Family Medicine 06/19/22 Mariela Denton MD [facility] [address] [place] [address] Referring Physician Gastroenterology 06/19/22 Lexis Barroso OD [address] [place] [address] Filler Room Attendant 09/19/22 documented as of this encounter
--- OUTSIDE RECORDS SUMMARY | 2024-07-15 19:59 | XMS_ITS | Encounter Summary ---
Author Organization [facility] Healthcare Address [address] [place] [address] Care Team Providers Care Director Camp Name Role Phone Servando Torre MD Primary Care Provider +1- [phone] Mariela Denton MD Unavailable +1 -[phone] Lexis Barroso OD Unavailable +1- [phone] Encounter Details Date Type Department Care Team (Late st Contact Info) Description 03/17/2023 Telephone [facility] [address] [place] [address] Dorcas Holt RT Social History Tobacco Use [...] on file Legal Sex Female 9:30 AM CASINO FLOOR WALKER Gender Identity Female 04/05/2022 6:17 PM CDT Sexual Orientation Straight 04/05/2022 6: 17 PM CDT documented as of this encounter Miscellaneous Notes * Telephone Encounter - Dorcas Holt RT - 03/17/2023 12:16 PM CDT Confirmed appt documented in this encounter Plan of Treatment Not on file documented as of this encounter Visit Diagnoses Not on filedocumented in this encounter Care Teams Director Camp Relationship Specialty Start Date End Date Servando Torre MD [facility] [address] [address] PCP - General Family Medicine 06/19/22 Mariela Denton MD [address] [place] [address] Referring Physician Gastroenterology 06/19/22 Lexis Barroso OD [address] [place] [address] Video Game Producer 09/19/22 documented as of this encounter
--- OUTSIDE RECORDS SUMMARY | 2024-07-15 19:59 | XMS_ITS | Encounter Summary ---
Author Organization [facility] Healthcare Address [address] [place] [address] Care Team Providers Care Fine Arts Packer Name Role Phone Servando Torre MD Primary Care Provider +1- [phone] Mariela Denton MD Unavailable +1 -[phone] Lexis Barroso OD Unavailable +1- [phone] Encounter Details Date Type Department Care Team (Latest Contact Info) Description 03/21/2023 3:20 PM CDT - 03/21/2023 11:59 PM CDT Hospital Encounter [facility] [address] [place] [address] Hypertension, essential; Hypertension associated with [...] Legal Sex Female 9:30 AM DIRECTOR OF MEDICAL REVIEW Gender Identity Female 04/05/2022 6:17 PM CDT [...] PM CDT) eGFR 76 mL/min/1. 73 m2 [facility] Comment: Interpretive Data Reference Interval [...] Torre MD LAB BLOOD ORDERABLES Final Result [facility] [address] Department [place] [address] * Differential, auto (03/21/2023 3:20 PM CDT) Pathologist [facility] Neutrophil abs 4.2 1.7 - 6.5 K/cumm [facility] Imm gran abs 0.0 0.0 - 0.1 K/cumm [facility] Lymphocyte abs 1.9 0.8 - 3.3 K/cumm [facility] Monocyte abs 0.6 0.2 - 0.8 K/cumm [facility] Eosinophil abs 0.2 0.0 - 0.5 K/cumm [facility] Basophil abs 0.1 0.0 - 0.1 K/cumm [facility] Neutrophil pct 59.6 % [facility] Comment: Interpretive Data Percent cell count reference ranges are not reported, since discordance with absolute values may lead to misinterpretation of CBC data. Current Interpretive Data was last revised on 2017. Imm gran pct 0.4 % [facility] Comment: Interpretive Data Percent cell count reference ranges are not reported, since discordance with absolute values may lead to misinterpretation of CBC data. Current Interpretive Data was last revised on 2017. Lymphocyte pct 27.6 % [facility] Comment: Interpretive Data Percent cell count reference ranges are not reported, since discordance with absolute values may lead to misinterpretation of CBC data. Current Interpretive Data was last revised on 2017. Monocyte pct 8.8 % [facility] Comment: Interpretive Data Percent cell count reference ranges are not reported, since discordance with absolute values may lead to misinterpretation of CBC data. Current Interpretive Data was last revised on 2017. Eosinophil pct 2.9 % [facility] Comment: Interpretive Data Percent cell count reference ranges are not reported, since discordance with absolute values may lead to misinterpretation of CBC data. Current Interpretive Data was last revised on 2017. Basophil pct 0.7 % [facility] Comment: Interpretive Data Percent cell count reference ranges are not reported, since discordance with absolute values may lead to misinterpretation of CBC data. Current Interpretive Data was last revised on 2017. Blood 03/21/2023 3:20 PM CDT 03/21/2023 6:04 PM CDT us Servando Torre MD LAB BLOOD ORDERABLES Final Result [facility] [address] Department [place] [address] * (ABNORMAL) Comprehensive metabolic panel (03/21/2023 3:20 [...] MD LAB BLOOD ORDERABLES Final Result [facility] [address] Department [place] [address] * (ABNORMAL) Lipid panel (03/21/2023 [...] PM CDT 03/21/2023 6:04 PM CDT Result [facility] Servando Torre MD LAB BLOOD ORDERABLES Final Result Performing Organization Address [facility] Phone Number [facility] [address] [facility] [employer] [place] [address] * (ABNORMAL) Hemoglobin A1c (03/21/2023 3:20 PM CDT) Hgb A1C 6.1(H) 4.0 - 5.6 % [facility] Estimated Average Glucose 128 mg/dL [facility] Comment: The ADA recommends reporting an estimated Average Glucose (eAG) with all Hemoglobin A1c results using the equation derived from a study of 507 normal and diabetic adults. ??Minority populations were underrepresented and children were not included. ?? (Diabetes Care 31:7944-1224, 2008). ??The eAG is not equivalent to a fasting glucose. Blood 03/21/2023 3:20 PM CDT 03/21/2023 6:04 PM CDT Servando Torre MD LAB BLOOD ORDERABLES Final Result Performing Organization Address [facility] Phone Number [facility] [address] [place] [address] * (ABNORMAL) Albumin Creatinine Ratio, Urine (03/21/2023 [...] PM CDT 03/21/2023 6:04 PM CDT Result [facility] Servando Torre MD LAB URINE ORDERABLES Final Result Performing Organization Address [facility] Phone Number [facility] [address] Department [place] [address] * (ABNORMAL) CBC with auto differential (03/21/2023 [...] BLOOD ORDERABLES Final Result Performing Organization Address [facility] Phone Number [facility] [address] Department [place] [address] documented in this encounter Visit Diagnoses Diagnosis Hypertension, essential Unspecified essential hypertension Hypertension associated with type 2 diabetes mellitus (HCC) Hyperlipidemia due to type 2 diabetes mellitus (HCC) Mixed hyperlipidemia documented in this encounter Care Teams Fine Arts Packer Relationship Specialty Start Date End Date Servando Torre MD [address] [address] PCP - General Family Medicine 06/19/22 Mariela Denton MD [address] [place] [address] Referring Physician Gastroenterology 06/19/22 Lexis Barroso OD [address] [place] [address] Principal Technologist 09/19/22 documented as of this encounter
--- OUTSIDE RECORDS SUMMARY | 2024-07-15 19:59 | XMS_ITS | Encounter Summary ---
Author Organization [facility] Address [address] [facility] [address] [place] [address] Care Team Providers Care Gas Station Operator Name Role Phone Servando Torre MD Primary Care Provider +1- [phone] Mariela Denton MD Unavailable +1 -[phone] Lexis Barroso OD Unavailable +1- [phone] Reason for Visit * Reason Onset Date Comments Additional Services Or Orders 02/20/2023 Encounter Details Date Type Department Care Team (Late st Contact Info) Description 02/20/2023 Telephone [facility] Medical [facility] Primary Care at [address] [address] Servando Torre MD [address] [place] [address] [address] [place] [address] Additional Services Or Orders Social [...] on file Legal Sex Female 9:30 AM ENGINEER FIRST ASSISTANT Gender Identity Female 04/05/2022 6:17 PM CDT Sexual Orientation Straight 04/05/2022 6: 17 PM CDT documented as of this encounter Miscellaneous Notes * Telephone Encounter - David Everett - 02/20/2023 11:55 AM CDT Spoke to Anna Marie and faxed over the [place] order to fax # [phone]. Fax confirmation was successful * Telephone Encounter [...] Anna Marie stated patient is currently at [facility] for ultrasound and no order was received. Per standard work attempted to warm transfer 3x with no answer, sending High Priority mes yanet. Anna Marie is requesting urgent reply. Anna Marie requesting to please fax Ultrasound on Liver order dated 02/07/23 to [phone] Caller???s Call back #: [phone] ext [phone] Does message need to be routed? Yes-Action Needed documented in this encounter Plan of Treatment Not on file documented as of this encounter Visit Diagnoses Not on filedocumented in this encounter Care Teams Gas Station Operator Relationship Specialty Start Date End Date Servando Torre MD [address] [address] PCP - General Family Medicine 06/19/22 Mariela Denton MD [facility] [address] [place] [address] Referring Physician Gastroenterology 06/19/22 Lexis Barroso OD [address] [place] [address] Water Proofer 09/19/22 documented as of this encounter
--- OUTSIDE RECORDS SUMMARY | 2024-07-15 19:59 | XMS_ITS | Encounter Summary ---
Author Organization [facility] Healthcare Address [address] [place] [address] Care Team Providers Care Performance Analyst Name Role Phone Servando Torre MD Primary Care Provider +1- [phone] Mariela Denton MD Unavailable +1 -[phone] Lexis Barroso OD Unavailable +1- [phone] Reason for Visit * Reason Comments Vomiting Encounter Details Date Type Department Care Team (Late st Contact Info) Description 03/08/2023 12:09 AM CDT - 03/08/2023 3:58 AM CDT Emergency [facility] Emergency Department 1 [place] [address] Silver Montana MD [address] [place] [address] Seizure (HCC) (Primary Dx) Discharge Disposition: Discharge [...] on file Legal Sex Female 9:30 AM 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 she [...] was happening even before she went to [place], but now is more often. The patient [...] She was seen at a hospital in [place] that day. documented in this encounter Miscellaneous [...] AM T: ??03/08/2023 2:34 AM Report ID: [id number] Reading Location: ??[id number] Procedure Note Radha Mendes MD - 03/08/2023 [...] by Radha Mendes M.D. SN: Report ID: [id number] Reading Location: [id number] Silver Montana MD IMG CT PROCEDURES Final Resu lt * eGFR (03/08/2023 12:37 AM CDT) eGFR 88 mL/min/1. 73 m2 [facility] Comment: Interpretive Data Reference Interval Normal ?>/= [...] BLOOD ORDERABLE S Final Result [facility] ([place] 1 [facility] Department [place] [address] * Differential, auto (03/08/2023 12:37 AM CDT) Neutrophil abs 5.7 1.7 - 6.5 K/cumm [facility] ([place]) Imm gran abs 0.0 0.0 - 0.1 [...] S Final Result [facility] ([place]) [address] [facility] Department [place] [address] * Magnesium (03/08/2023 12:37 AM CDT) Magnesium 1.9 1.4 - 2.5 mg/dL [facility] ([place] Blood 03/08/2023 12:3 7 AM CDT 03/08/2023 12:46 AM CDT Jim Dobson MD LAB BLOOD ORDERABLE S Final Result Performing Organization Address [facility] Co de Phone Number [facility] ([place]) 1 [facility] Department [place] [address] [place] [address] * (ABNORMAL) Comprehensive metabolic panel (03/08/2023 12:37 [...] MD LAB BLOOD ORDERABLE S Final Result [facility] ([place]) 1 [facility] Department [place] [address] * (ABNORMAL) CBC with auto differential (03/08/2023 [...] ORDERABLE S Final Result Performing Organization Address [facility] Co de Phone Number [facility] ([place]) 1 [facility] Department [place] [address] * ECG 12 lead (03/08/2023 12:31 AM CDT) 03/08/2023 12:3 1 AM CDT Narrative [facility] - 03/08/2023 12:14 PM CDT Vent Rate: 76 bpm RR Interval: 784 msec CA Interval: 143 msec QRS Duration: 98 msec QT Interval: 375 msec QTC Interval: 405 msec P-R-T Marion: 48 - 26 - 24 degrees SINUS RHYTHM NORMAL ECG Electronically Signed By: Austin Horta Jim Dobson MD ECG ORDERABLES Fin al Result Performing Organization Address [facility] Co de Phone Number [facility] [employer] [facility] documented in this encounter Visit Diagnoses [...] RN) documented in this encounter Care Teams Performance Analyst Relationship Specialty Start Date End Date Servando Torre MD [facility] [address] PCP - General Family Medicine 06/19/22 Mariela Denton MD [facility] [address] [place] [address] Referring Physician Gastroenterology 06/19/22 Lexis Barroso OD [address] [place] [address] Motor Equipment Lieutenant 09/19/22 documented as of this encounter
--- OUTSIDE RECORDS SUMMARY | 2024-07-15 19:59 | XMS_ITS | Encounter Summary ---
Author Organization [facility] Healthcare Address [address] [place] [address] Care Team Providers Care Air Traffic Instructor Name Role Phone Servando Torre MD Primary Care Provider +1- [phone] Mariela Denton MD Unavailable +1 -[phone] Lexis Barroso OD Unavailable +1- [phone] Reason for Referral * MRI/CAT/PET Scan (Routine) - Closed Specialty Diagnoses / Procedures Referred By Angel braswell Referred To Contact Radiology Diagnoses Nodule of kidney Procedures MRI Abdomen Kidney W WO Contrast Marixa San NP [address] [place] [address] Phone: tel: fax: [address] [address] Referral ID Status Reason Start Date Expiration Date Visits Re quested Visits Authorized [id number] Closed 03/21/2023 04/19/2024 1 1 Reason for Visit * MRI/CAT/PET Scan (Routine) - Closed Specialty Diagnoses / Procedures Referred By Contclemencia braswell Referred To Contact Radiology Diagnoses Nodule of kidney Procedures MRI Abdomen Kidney W WO Contrast Marixa San NP [address] [place] [address] Phone: tel: fax: [address] [address] Referral ID Status Reason Start Date Expiration Date Visits Re quested Visits Authorized [id number] Closed 03/21/2023 04/19/2024 1 1 Encounter Details Date Type Department Care Team (Latest Contact Info) Description 04/24/2023 7:51 AM CDT - 04/24/2023 11:59 PM CDT Hospital Encounter [facility] 1 [place] [address] Nodule of kidney Discharge Disposition: Discharge to [...] on file Legal Sex Female 9:30 AM COMBER SETTER Gender Identity Female 04/05/2022 6:17 PM CDT [...] PM T: ??04/25/2023 2:51 PM Report ID: [id number] Reading Location: ??[id number] Procedure Note Mars Doll MD - 04/25/2023 [...] Mars Doll M.D. JA: JAYLEEN Report ID: [id number] Reading Location: [place] [address] Marixa San DELIVERY TECHNICIAN IMG MRI PROCEDURES Final Result documented [...] mL documented in this encounter Care Teams Air Traffic Instructor Relationship Specialty Start Date End Date Servando Torre MD [address] [facility] [address] [place] [address] PCP - General Family Medicine 06/19/22 Mariela Denton MD [address] [place] [address] Referring Physician Gastroenterology 06/19/22 Lexis Barroso OD [address] [place] [address] Anaesthetic Technician 09/19/22 documented as of this encounter
--- OUTSIDE RECORDS SUMMARY | 2024-07-15 19:59 | XMS_ITS | Encounter Summary ---
Author Organization [facility] Address [address] [place] [address] Phone Care Team Providers Care Ophthalmic Technician Apprentice Name Role Phone Servando Torre MD Primary Care Provider +1 [phone] Mariela Denton MD Unavailable +1 -[phone] Lexis Barroso OD Unavailable +1- [phone] Encounter Details Date Type Department Care Team (Late st Contact Info) Description 03/07/2023 Documentation [facility] Epilepsy [address] [facility] 6th [place] [address] [place] [address] Adria Burleson MD [address] [facility] [address] [place] [address] Social History Tobacco Use Types [...] on file Legal Sex Female 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
--- OUTSIDE RECORDS SUMMARY | 2024-07-15 19:59 | XMS_ITS | Encounter Summary ---
Author Organization [facility] Address [address] [place] [address] Phone Care Team Providers Care Latex Thread Machine Operator Name Role Phone Servando Torre MD Primary Care Provider [phone] Mariela Denton MD Unavailable [phone] Lexis Barroso OD Unavailable [phone]- [phone] Reason for Visit * Consultation (Routine) - Closed Specialty Diagnoses / Procedures Referred By Angel braswell Referred To Contact Neurology Diagnoses Seizure (HCC) Adria Burleson MD 1 [facility] [address] [place] [address] Phone: tel: fax: Grace Nicolas MD [address] [place] [address] Phone: tel: fax:[phone] Referral ID Status Reason Start Date Expiration Date V isits Requested Visits Authorized [id number] Closed Specialty Services Required 03/03/2023 04/01/2024 1 1 Encounter Details Date Type Department Care Team (Late st Contact Info) Description 04/09/2023 2:00 PM CDT Office Visit [facility] [address] [facility] 6th [place] [address] [place] [id number] Grace Nicolas MD [address] [facility] [address] [place] [address] Seizure (HCC) Social History Tobacco Use Types [...] on file Legal Sex Female 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 Radha Allen (: 1945) [facility], Department of Neurology [...] that very mild dementia due to an pj-sl-dkb-unclearcause (that is, uncertain cause) is the most [...] for your future (Living Will, Power of Hydraulics Engineer for Health Care). You may wish to consult an trade mark attorney regarding these matters. Level of Care Recommendation: You can continue to live independently with support from your family. FOLLOW-UP You should return to see either Ms. Chelsie Francisco NP, Ms. Pamela Langston NP, or CHAMP Ashton in [address] Nicolas in about a year. . You can [phone] if you have questions about scheduling. If we ordered blood tests today, please stop by the Express patient testing area on the third floorto have your blood drawn. This is across from the [employer], in the same direction as the [employer] parking garage. You should continue to see your primary care doctor at regular intervals. RESOURCES FOR ADDITIONAL INFORMATION AND SUPPORT We will refer you to our Alzheimer Association Fitter Mechanic. The social scientist will call you in the next 7-10 days. Alzheimer's Association of [place] Chapter: ; (toll free); http://www.alz.org Memory [employer] 765-695-4496 http://[facility]care[facility] Center Agency on Aging (serving [facility]) http://phelps health.[place].[facility]/government/hslaaa.html [facility] Agency on Aging (serving [place], [facility] and [facility] http://www.[facility].org [facility]- provides counseling and help with the aging and ailments of our loved ones. They may be able to provide counseling in your home as well as in their office and services may be covered by Medicare. [address], [place] [address] or [email or web address]. Website: http://LYNX Network Group/services/eeixri-kmsf-nehvdcab/ Mind in Motion, Cognitive Stimulation Through Activity at the [employer]itel. [address] [facility] [address] [place] [address] http://www.Huaat/project/vpoq-mw-wmswjp/ Lewy Body Dementia Association: (toll free); http://www.LBDA.org Association for Frontotemporal Dementias: (toll free); http://www.ftd-picks.org Geriatric Heat Treat Supervisor: Decision Point consulting, Ms. Varsha Mcgarry, https://www.decisionpointconsulting.org/ Pathways for aging http://e-Chromic TechnologiesforINTREorg SYSTEMS.Mobjoy/ Yessy Anthony with Next Step Elder Assist, Certified Prop Making Supervisor, [address], [address] [address]. , fax: [phone]. [email or web address] documented in this encounter Progress Notes * Grace Nicolas MD - 04/09/2023 2:00 PM CDT [facility] NEW PATIENT VISIT Grace Nicolas MD, MSc [facility] Department of Neurology Patient Name: RADHA ALLEN Medical Record Number (MRN): [id number] Date of (): 1945 Encounter Date: 04/09/2023 [...] able to operate household appliances including the cementer oil well, laundry machines, and adobe block maker. She has difficulty using technology, including [...] intact to pin-prick and vibratory sense. Coordination Ouvrot-xcjp-fqydnr and kfhb-upim-flxn testing were normal. Gait Gait was normal, [...] mildlyimpaired range on tests of semantic memory (Croton Naming, verbal fluency). Scores were in the [...] are common in patients with active depression. [facility] Neurobehavioral Status Test Results 04/09/2023 7:00 AM [facility] Neurobehavioral Status Exam Results Repository ICF signed? No Verbal Fluency Total Score 10 Croton Naming (15 item) Total Score 15 MMSE [...] 0 Clinical Dementia Rating 04/09/2023 7:00 AM [facility] CDR/DIAGNOSIS NEW Repository ICF signed? No Memory [...] 05/30/2022 No results found for: TSH , L5COYUF , C5EEYGE , THYROIDAB Lab Results Component Value Date [...] or Ms. Pamela Langston, or our Physician Vp Digital Marketing Ms. Marianne Mccullough in 6 months. --- [...] labs, tests and medical records, time spent sihc-en-gxai with the patient and family during the visit, performing counselling and education, placing orders and documenting the visit in the patient's EHR. Grace Nicolas MD, MSc General Office Clerk Department of Neurology, [facility] Detailed plan and patient/caregiver education and referrals are in AVS copied below: Patient Instructions [facility] - VISIT SUMMARY & PATIENT INSTRUCTIONS For Ms. Radha Allen (: 1945) [facility], Department of Neurology [...] that very mild dementia due to an md-rx-kdm-unclearcause (that is, uncertain cause) is the most [...] for your future (Living Will, Power of Hydraulics Engineer for Health Care). You may wish to consult an trade mark attorney regarding these matters. Level of Care Recommendation: You can continue to live independently with support from your family. FOLLOW-UP You should return to see either Ms. Chelsie Francisco NP, Ms. Pamela Langston NP, or CHAMP Ashton in [address] Nicolas in about a year. . You can [phone] if you have questions about scheduling. If we ordered blood tests today, please stop by the Express patient testing area on the third floorto have your blood drawn. This is across from the [employer], in the same direction as the [facility] parking garage. You should continue to see your primary care doctor at regular intervals. RESOURCES FOR ADDITIONAL INFORMATION AND SUPPORT We will refer you to our Alzheimer Association Fitter Mechanic. The social scientist will call you in the next 7-10 days. Alzheimer's Association of [place] Chapter: ; (toll free); http://www.alz.org Memory Ch[employer] [phone] http://[facility]care[facility] Center Agency on Aging (serving [facility]) http://[facility].[place].[facility]/government/hslaaa.html [facility] Agency on Aging (serving [place], [facility] and [facility] http://www.[facility] Psychological Associates- provides counseling and help with the aging and ailments of our loved ones. They may be able to provide counseling in your home as well as in their office and services may be covered by Medicare. [address], [place] [address] or [email or web address]. Website: http://LYNX Network Group/services/tiegfn-enkk-jlbcckmn/ Mind in Motion, Cognitive Stimulation Through Activity at the [place] KnewCointic copygram. [address] [facility] [address] [place] [address] http://www.Dolphin Geeks.Mobjoy/project/xpgu-gl-rzixhh/ Lewy Body Dementia Association: (toll free); http://www.LBDA.org Association for Frontotemporal Dementias: (toll free); http://www.ftd-picks.org Geriatric Heat Treat Supervisor: Decision Point consulting, Ms. Varsha Mcgarry, https://www.decisionpointconsulting.org/ Pathways for aging http://Pensqr/ Yessy Anthony with Next Step Elder Assist, Certified Prop Making Supervisor, [address], [address], [place] [address]. , fax: [phone]. [email or web address] documented in this encounter Plan of Treatment [...] 04/09/2023 documented in this encounter Care Teams Latex Thread Machine Operator Relationship Specialty Start Date End Date Servando Torre MD [address] [facility] [address] [place] [address] PCP - General Family Medicine 06/19/22 Mariela Denton MD [address] [place] [address] Referring Physician Gastroenterology 06/19/22 Lexis Barroso OD [address] [place] [address] Social Media Community Manager 09/19/22 documented as of this encounter
--- OUTSIDE RECORDS SUMMARY | 2024-07-15 19:59 | XMS_ITS | Encounter Summary ---
Author Organization [facility] Medical Group Address [address] [facility] [address] [place] [address] Care Team Providers Care Photoengraving Photographer Name Role Phone Servando Torre MD Primary Care Provider [phone] Mariela Denton MD Unavailable [phone] Lexis Barroso OD Unavailable +1- [phone] Encounter Details Date Type Department Care Team (Late st Contact Info) Description 04/26/2023 Orders Only [facility] Medical [facility] Primary Care at [place] [address] [place] [address] Marixa San NP [address] [facility] [address] [place] [address] Liver nodule (Primary Dx); Renal [...] on file Legal Sex Female 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 Gender Identity Female 04/05/2022 6:17 PM CDT Sexual Orientation Straight 04/05/2022 6: 17 PM CDT documented as of this encounter Plan of Treatment Not on file documented as of this encounter Visit Diagnoses Diagnosis Liver nodule- Primary Other specified disorders of liver Renal lesion documented in this encounter Care Teams Photoengraving Photographer Relationship Specialty Start Date End Date Servando Torre MD [address] [address] PCP - General Family Medicine 06/19/22 Mariela Denton MD [address] [place] [address] Referring Physician Gastroenterology 06/19/22 Lexis Barroso OD [address] [place] [address] Roll Hand 09/19/22 documented as of this encounter
--- OUTSIDE RECORDS SUMMARY | 2024-07-15 20:00 | XMS_ITS | Encounter Summary ---
Author Organization [facility] Address [address] [place] [address] Phone Care Team Providers Care Paperhanger Apprentice Name Role Phone Servando Torre MD Primary Care Provider [phone]- [phone] Mariela Denton MD Unavailable [phone] Lexis Barroso OD Unavailable +1- [phone] Encounter Details Date Type Department Care Team (Late st Contact Info) Description 10/14/2022 Orders Only [facility] Gastroenterology [address] [facility] 12th [place] [address] [place] [address] Lexis Renteria RN Skin tag (Primary Dx) [...] file Legal Sex Female 9:30 AM 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 -------Fax Transmission Report------- To: Recipient at [phone] Subject: Joseph Allen referral (secure) Result: The transmission was successful. Explanation: All Pages Ok Pages Sent: 16 Connect Time: 14 minutes, 10 seconds Transmit Time: 10/14/2022 08:38 Transfer Rate: 9600 Status Code: 0000 Retry Count: 0 Job Id: [id number] Unique Id: [id number] Fax Line: 22 Fax Dampproofer: [id number] documented in this encounter Plan of Treatment Not on file documented as of this encounter Visit Diagnoses Diagnosis Skin tag- Primary Unspecified hypertrophic and atrophic condition of skin documented in this encounter Orders Procedures Count Last Ordered Date First Orde red Date ONCBCN OUTPATIENT FACILITY ORDERS 1 023 documented in this encounter Care Teams Paperhanger Apprentice Relationship Specialty Start Date End Date Servando Torre MD [facility] [address] PCP - General Family Medicine 06/19/22 Mariela Denton MD [address] [place] [address] Referring Physician Gastroenterology 06/19/22 Lexis Barroso OD [address], [place] [address] Watch Inspector 09/19/22 documented as of this encounter
--- OUTSIDE RECORDS SUMMARY | 2024-07-15 20:00 | XMS_ITS | Encounter Summary ---
Author Organization [facility] Medical Group Address [address] [facility] [address] [place] [address] Care Team Providers Care Director Labor Standards Name Role Phone Servando Torre MD Primary Care Provider [phone]- [phone] Mariela Denton MD Unavailable [phone] [phone] Lexis Barroso OD Unavailable +1- [phone] Reason for Referral * Diagnostic Imaging (Routine) - Closed Specialty Diagnoses / Procedures Referred By Contac t Referred To Contact Diagnoses Screening for osteoporosis Asymptomatic menopausal state Procedures Dexa Axial Skeleton Bone Density 1 or 2 Site Servando Torre MD [address] [place] [address] [address] [place] [address] Phone: tel: fax: External Order Referral ID Status Reason Start Date Expiration Date Visits Re quested Visits Authorized [id number] Closed 09/19/2022 10/19/2023 1 1 SINKING MACHINE OPERATOR Reason for Visit * Reason Comments Follow-up 3 month f/u Encounter Details Date Type Department Care Team (Late Contact Info) Description 09/19/2022 2:00 PM DIE SINKING MACHINE OPERATOR Office Visit [facility] Medical Group Primary Care at [address] [phone] Servando Torre MD [address] [facility] [address] [place] [address] Type 2 diabetes mellitus with [...] file Legal Sex Female 9:30 AM DIE SINKING MACHINE OPERATOR Gender Identity Female 04/05/2022 6:17 PM CDT Sexual Orientation Straight 04/05/2022 6: 17 PM CDT documented as of this encounter Last Filed Vital Signs Vital Sign Reading Time Taken Comments Blood Pressure 130/74 09/19/2022 2:13 PM DIE SINKING MACHINE OPERATOR Pulse 77 09/19/2022 2:13 PM DIE SINKING MACHINE OPERATOR Temperature 35.9 ??C (96.7 ??F) 09/19/2022 2:13 PM CS T Respiratory Rate 16 09/19/2022 2:13 PM DIE SINKING MACHINE OPERATOR Oxygen Saturation 97% 09/19/2022 2:13 PM DIE SINKING MACHINE OPERATOR Inhaled Oxygen Concentration - - Weight 69.9 kg (154 lb) 09/19/2022 2:13 PM DIE SINKING MACHINE OPERATOR Height 157.5 cm (5' 2 ) 09/19/2022 2:13 PM DIE SINKING MACHINE OPERATOR Body Mass Index 28.17 09/19/2022 2:13 PM DIE SINKING MACHINE OPERATOR documented in this encounter Patient Instructions * Patient Instructions* Regina Toscano MA - 09/19/2022 2:00 PM DIE SINKING MACHINE OPERATOR Increasing metformin to 850 mg twice daily, a1c increased to 7.2% Continuing current regimen otherwise Continue to avoid starches, potatoes, other carb-rich foods Bone density study ordered (to rule out osteoporosis), at [facility] GET 3 MONTHS LAB DONE IN NOVEMBER Thanks for coming in today! My medical assistants and I are thankful you have trusted us with your care, and hope that you received EXCELLENT care today! Please do not hesitate to call if you have any questions or concerns at [phone]. You may receive a phone call, text, MYCHART message, or e-mail asking about your care today. We would love to hear your feedback on how EXCELLENT your care wastoday! Wishing you better health, always. Dr. Torre SINKING MACHINE OPERATOR SINKING MACHINE OPERATOR SINKING MACHINE OPERATOR * Attachments The following attachments cannot be sent through Care Everywhere. * Memory Loss in Older Adults (General Information) (Eritrean) documented in this encounter Ordered Prescriptions Prescription [...] going well. She is getting PT at [facility], feels it is helping. Her arm is [...] being taken. She does not see a cargo tank mechanic.Eyeexam is current. Hypertension This is a chronic problem. Associated symptoms include blurred vision. Pertinent negatives include no chest pain, headaches, malaise/fatigue, neck pain, palpitations, peripheral edema, PND, shortnessof breath or sweats. Past treatments include calcium channel blockers and beta blockers. Compliance problems include diet and exercise. There is no history of kidney disease, CAD/[place] or heart failure. Hyperlipidemia This is a [...] hyperglycemia, without long-term current use of insulin ([facility]) ([facility]) (Primary) - POCT hemoglobin A1c [...] created with this software. Occasional wrong-word or 'xlkgv-c-tnev' substitutions may have occurred due to the inherent limitations of voice recognition software. Read the chartcarefully and recognize, using context, where substitutions have occurred. SINKING MACHINE OPERATOR documented in this encounter Miscellaneous Notes * Addendum Note - Naomie Thomas CLT - 09/19/2022 2:00 PM CSTAddended by: NAMOIE THOMAS on: 03/21/2023 03:19 PM Modules accepted: [...] HEMOGLOBIN A1C Routine 09/19/2022 2 :51 PM DIE SINKING MACHINE OPERATOR Type 2 diabetes mellitus with hyperglycemia, without long-term current use of insulin ([facility]/HCC) (HCC) documented in this encounter Results * [...] RDW SD 54.9(H) 35.7 - 48.[address] [facility] NRBC abs 0.02(H) 0.00 - 0.01 K/cumm [facility] Blood 03/21/2023 3:20 PM CDT 03/21/2023 6:04 PM CDT Servando Torre MD LAB BLOOD ORDERABLES Final Result [facility] [address] Department [place] [address] * (ABNORMAL) Comprehensive metabolic panel (03/21/2023 3:20 PM CDT) Sodium 141 135 - 145 mmol/L [facility] Potassium, pl 3.9 3.3 - 4.9 mmol/L [facility] Chloride 102 97 - 110 mmol/L [facility] CO2 29 22 - 32 mmol/L [facility] Anion gap 10 2 - 15 mmol/L [facility] BUN 12 6 - 25 mg/dL [facility] Creatinine 0.79 0.60 - 1.10 mg/dL [facility] Glucose 130 70 - 199 mg/dL [facility] Comment: Interpretive Data Fasting glucose >/= [...] BLOOD ORDERABLES Final Result Performing Organization Address City/State/[facility] Phone Number CERNER [phone] Department [place] [address] * (ABNORMAL) Lipid panel (03/21/2023 3:20 PM [...] ORDERABLES Final Result Performing Organization Address City/State/[facility] [place] pa Phone Number AILEEN [phone] Department [place] [address] * Dexa Axial Skeleton Bone Density 1 or 2 Site (12/12/2022 2:33 PM CDT) Anatomical Region Laterality Modality Body N/A Radiographic Keyanna ging Narrative 12/12/2022 3:00 PM CDT Patient Name: Lisa Allen Date of : 1945 Date of scan: 12/12/2022 Bone mineral density was performed on a [employer] Discovery Densitometer. ?? Based on machine cross-calibration [...] by the International Society of Clinical Densitometry. [id number] us Servando Torre MD IMG DXA PROCEDURES Final Re sult * POCT hemoglobin A1c (09/19/2022 2:51 PM DIE SINKING MACHINE OPERATOR) Hemoglobin A1C, POC 7.2 % Blood 09/19/2022 2:51 PM DIE SINKING MACHINE OPERATOR Servando Torre MD POINT OF CARE TEST [...] as of this encounter Care Teams Director Labor Standards Relationship Specialty Start Date End Date Servando Torre MD [address] [address] PCP - General Family Medicine 06/19/22 Mariela Denton MD [address] [place] [address] Referring Physician Gastroenterology 06/19/22 Lexis Barroso OD [address] [place] [address] [place] 09/19/22 documented as of this encounter
--- OUTSIDE RECORDS SUMMARY | 2024-07-15 20:00 | XMS_ITS | Encounter Summary ---
Author Organization [facility] Medical Group Address [address] [facility] [address] [place] [address] Care Team Providers Care Rebar Fabricator Name Role Phone Servando Torre MD Primary Care Provider [phone]- [phone] Mariela Denton MD Unavailable [phone] Lexis Barroso OD Unavailable +1- [phone] Encounter Details Date Type Department Care Team (Late st Contact Info) Description 11/08/2022 Telephone [facility] Primary Care at [address] [place] [address] Servando Torre MD [address] [place] [address] [address] [place] [address] Social History Tobacco Use Types [...] file Legal Sex Female 9:30 AM CHILD AND ADOLESCENT THERAPIST Gender Identity Female 04/05/2022 6:17 PM [...] for PT. It can be faxed to [phone]. If you have any questions please call [phone] and ask for Saul. Thank you * Telephone Encounter - Vero Antonio - 11/08/2022 8:47 AM CDT [facility] , pt has a apt at 12 pm , please advise thanks. [phone] FX [phone] documented in this encounter Plan of Treatment Not on file documented as of this encounter Visit Diagnoses Diagnosis Balance problem- Primary Abnormality of gait documented in this encounter Care Teams Rebar Fabricator Relationship Specialty Start Date End Date Servando Torre MD [address] [address] PCP - General Family Medicine 06/19/22 Mariela Denton MD [address] [place] [address] Referring Physician Gastroenterology 06/19/22 Lexis Barroso OD [address] [place] [address] Woodwork Teacher 09/19/22 documented as of this encounter
--- OUTSIDE RECORDS SUMMARY | 2024-07-15 20:00 | XMS_ITS | Encounter Summary ---
Author Organization [facility] Medical Group Address [address] [facility] [address] [place] [address] Care Team Providers Care Childrens Club Attendant Name Role Phone Servando Torre MD Primary Care Provider [phone]- [phone] Mariela Denton MD Unavailable [phone] Lexis Barroso OD Unavailable +1- [phone] Encounter Details Date Type Department Care Team (Late st Contact Info) Description 02/07/2023 10:45 AM CDT Lab [facility] Medical [facility] Outpatient Lab at [address] [address] Seizure (HCC) (Primary Dx) Social [...] on file Legal Sex Female 9:30 AM ECONOMIST RESEARCH ASSISTANT Gender Identity Female 04/05/2022 6:17 PM CDT Sexual Orientation Straight 04/05/2022 6: 17 PM CDT documented as of this encounter Plan of Treatment Not on file documented as of this encounter Visit Diagnoses Diagnosis Seizure (HCC)- Primary Other convulsions documented in this encounter Care Teams Childrens Club Attendant Relationship Specialty Start Date End Date Srevando Torre MD [address] [facility] [address] [place] [address] PCP - General Family Medicine 06/19/22 Mariela Denton MD [address] [place] [address] Referring Physician Gastroenterology 06/19/22 Lexis Barroso OD [address] [place] [address] Hot Air Furnace Installer And Repairer 09/19/22 documented as of this encounter
--- OUTSIDE RECORDS SUMMARY | 2024-07-15 20:00 | XMS_ITS | Encounter Summary ---
Author Organization [facility] Medical Group Address [address] [facility] [address] [place] [address] Care Team Providers Care Newscast Producer Name Role Phone Servando Torre MD Primary Care Provider [phone]- [phone] Mariela Denton MD Unavailable +1 -[phone] Lexis Barroso OD Unavailable [phone]- [phone] Reason for Visit * Reason Onset Date Comments CHRISTELLE Questions 02/04/2023 Encounter Details Date Type Department Care Team (Late st Contact Info) Description 02/04/2023 Telephone [facility] Medical [facility] Primary Care at [address] [address] Servando Torre MD [address] [place] [address] [address] [place] [address] CHRISTELLE Questions (/) Social History [...] on file Legal 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 yes Caller???s Callback #: [phone] Additional Comments: Caller states that patient became unresponsive and her lips were turning blue.She administered CPR and broke 8 of her ribs. Does message need to be routed? No documented in this encounter Plan of Treatment Not on file documented as of this encounter Visit Diagnoses Not on filedocumented in this encounter Care Teams Newscast Producer Relationship Specialty Start Date End Date Servando Torre MD [address] [address] PCP - General Family Medicine 06/19/22 Mariela Denton MD [address] [place] [address] Referring Physician Gastroenterology 06/19/22 Lexis Barroso OD [address] [place] [address] Director Of Retail Analytics 09/19/22 documented as of this encounter
--- OUTSIDE RECORDS SUMMARY | 2024-07-15 20:00 | XMS_ITS | Encounter Summary ---
Author Organization [facility] Medical [facility] Address [address] [facility] [address] [place] [address] Care Team Providers Care Record Press Supervisor Name Role Phone Servando Torre MD Primary Care Provider [phone] Mariela Denton MD Unavailable [phone] [phone] Lexis Barroso OD Unavailable +1- [phone] Reason for Referral * Consultation (Routine) - Closed Specialty Diagnoses / Procedures Referred By Angel braswell Referred To Contact Neurology Diagnoses Seizure (HCC) Marixa San NP [address] [facility] [address] [place] [address] Phone: tel: fax: [facility] Epilepsy [address] [facility] 6th [place] [address] [place] [address] Phone: tel: fax: Referral ID Status Reason Start Date Expiration Date V isits Requested Visits Authorized [id number] Closed Specialty Services Required 02/07/2023 03/08/2024 1 1 Question Answer Please select the performing region: [facility] [[id number]] Please select the performing department: [facility]UR[facility] [[id number]] # of visits: 1 * Diagnostic Imaging (Routine) - Closed Specialty Diagnoses / Procedures Referred By Angel braswell Referred To Contact Diagnoses Liver nodule Procedures US Liver Marixa San NP [address] [place] [address] [address] [place] [address] Phone: tel: fax: External Order Referral ID Status Reason Start Date Expiration Date Visits Re quested Visits Authorized [id number] Closed 02/07/2023 03/08/2024 1 1 Reason for Visit * Reason Comments CHRISTELLE Discharged on 02/02 [facility] in [place] for possible seizure due to lack of oxygen. 8 broken ribs. Due to CPR. oxygen Walking needs increa sed on oxygen. First thing in the morning when in pain oxygen is increased as well. 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 Transition of Care Lisa Allne is seen in the office today for [...] have noted any changes. Patient was in [place] at high altitude for a family reunion. [...] night when O2 drops. Patient returned from [place] last night. She is supposed to mail back current concentrator tomorrow to [place]. Patient's mental status still not 100% back [...] 2L. * Assessment & Plan Note - Mariax San NP - 02/07/2023 12:34 PM CDTAssociated [...] NP LAB BLOOD ORDERABLES Final Resul t [facility] [address] [place] [address] * (ABNORMAL) Comprehensive metabolic panel [...] LAB BLOOD ORDERABLES Final Resul t [facility] [address] [place] [address] * (ABNORMAL) CBC with auto differential (02/07/2023 10:42 AM CDT) Pathologist [facility] WBC 8.2 3.8 - 9.9 K/cumm CERNER [...] CH MCHC 30.3(L) 32.3 - 35.7 g/dL [facility] RDW CV 14.7 11.1 - 14.9 % [facility] RDW SD 51.9(H) 35.7 - 48.1 fL [facility] NRBC abs 0.02(H) 0.00 - 0.01 K/cumm [facility] Blood 02/07/2023 10:4 2 AM CDT 02/07/2023 4:21 PM CDT us Marixa San CUT PRESS OPERATOR LAB BLOOD ORDERABLES Final Resul t [facility] [address] Department [place] [address] documented in this encounter Visit [...] 4 added in this encounter Care Teams Record Press Supervisor Relationship Specialty Start Date End Date Servando Torre MD [facility] [address] [address] PCP - General Family Medicine 06/19/22 Mariela Denton MD [facility] [address] [place] [address] Referring Physician Gastroenterology 06/19/22 Lexis Barroso OD [address] [place] [address] Design Analyst 09/19/22 documented as of this encounter
--- OUTSIDE RECORDS SUMMARY | 2024-07-15 20:00 | XMS_ITS | Encounter Summary ---
Author Organization [facility] Medical Group Address [address] [facility] [address] [place] [address] Care Team Providers Care Permaculture Contractor Name Role Phone Servando Torre MD Primary Care Provider Mariela Denton MD Unavailable [phone] [phone] Encounter Details Date Type Department Care Team (Late st Contact Info) Description 06/23/2022 Orders Only [facility] Medical Group Primary Care at [address] [address] Servando Torre MD [address] [place] [address] [address] [place] [address] Chronic left shoulder pain (Primary [...] on file Legal 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 Gender Identity Female 04/05/2022 6:17 PM CDT Sexual Orientation Straight 04/05/2022 6: 17 PM CDT documented as of this encounter Plan of Treatment Not on file documented as of this encounter Visit Diagnoses Diagnosis Chronic left shoulder pain- Primary Pain in joint, shoulder region documented in this encounter Care Teams Permaculture Contractor Relationship Specialty Start Date End Date Servando Torre MD [address] [facility] [address] [place] [address] PCP - General Family Medicine 06/19/22 Mariela Denton MD [address] [place] [address] Referring Physician Gastroenterology 06/19/22 documented as of this encounter
--- OUTSIDE RECORDS SUMMARY | 2024-07-15 20:00 | XMS_ITS | Encounter Summary ---
Author Organization [facility] Healthcare Address [address] [place] [address] Care Team Providers Care Product Safety Technician Name Role Phone Servnado Torre MD Primary Care Provider [phone] Mariela Denton MD Unavailable [phone] [phone] Lexis Barroso OD Unavailable [phone]- [phone] Reason for Visit * Reason Comments Blurred Vision Fatigue Encounter Details Date Type Department Care Team (Late st Contact Info) Description 02/12/2023 7:50 PM CDT - 02/12/2023 9:51 PM CDT Emergency [facility] Emergency Department 1 [place] [address] Juve Trejo MD [address] [address] Weakness (Primary Dx); Confusion Discharge Disposition: Discharge [...] file 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 * Confusion (Niuean) documented in this encounter Medications at [...] days. Patient states that she was in [place] about 9600 ft while she was sitting [...] seizure due to high altitude levels in [place]. Pt had CPR and now has broken [...] seizure due to high altitude levels in [place]. ? TECHNIQUE: Axial images acquired through the [...] PM T: ??02/12/2023 9:05 PM Report ID: [id number] Reading Location: ??[id number] Procedure Note Teofilo Sunshine MD - 02/12/2023 EXAM DESCRIPTION: CT HEAD WO CONTRAST REASON FOR STUDY: Mental status change, unknown cause c/o increased fatigue, confusion and blurry vision x 3 days. Per family,on 01/30 pt had what is believed to be a seizure due to high altitude levels in [place]. TECHNIQUE: Axial images acquired through the brain [...] Sunshine M.D., D.O. MW: JEOVANNY Report ID: [id number] Reading Location: [id number] Juve Trejo MD IMG CT PROCEDURES Final Result * Urine culture Urine (02/12/2023 7:10 PM CDT) Report Final Report: Less than 100,000 colonies/mL (clinically insignificant growth based on current clinical standards) [facility] RODRIGUEZ ([place]) Comment:Testing performed by : [facility], [address] [facility] [place]., [address] Organism (CLINICALLY INSIGNIFICANT GROWTH [facility] RODRIGUEZ ([place]) Urine 02/12/2023 7:10 PM CDT 02/12/2023 10:23 PM CDT Narrative [facility]LE[facility] RODRIGUEZ ([place]) - 02/14/2023 7:37 AM CDT Urine culture reflexed based upon urinalysis results. Testing performed by [facility] Microbiology Laboratory ([phone]) us Juve Trejo MD LAB MICROBIOLOGY - GENERAL ORD ERABLES Final Result Performing Organization Address [facility]/ZIP Co de Phone Number AILEEN RODRIGUEZ ([place]) [address] [facility] [place] [address] * (ABNORMAL) Urinalysis, microscopic only (02/12/2023 7:10 [...] ORDERABLES Final Res ult Performing Organization Address City/[facility]/ZIP Co de Phone Number AILEEN RODRIGUEZ ([place]) [address] [facility] [place] [address] * (ABNORMAL) Urinalysis reflex to microscopic and culture Urine (02/12/2023 7:10 PM CDT) Color, ur Yellow Yellow [facility] ([place]) Clarity, ur Clear Clear [facility] ([place]) Specific gravity, ur 1.012 1.003 - 1.030 [facility] ([place]) pH, urine 5.0 [facility] ([place]) Protein, ur ql Negative Negative [facility] ([place]) Glucose, ur ql Negative Negative [facility] ([place]) Ketones, ur Negative Negative [facility] A ([place]) Bilirubin, ur Negative Negative [facility] ([place]) Blood, ur Negative Negative [facility] ([place]) Urobilinogen, ur <2.0 <2.0 mg/dL [facility] ([place]) Nitrite, ur Negative Negative [facility] A ([place]) Leukocyte esterase, ur 3+(A) Negative [facility] ([place]) UA reflex comment Reflex to microscopic UA will be performed. [facility] ([place]) Urine 02/12/2023 7:10 PM CDT 02/12/2023 7:12 PM CDT Narrative [facility] ([place]) - 02/12/2023 7:17 PM CDT ?? Urine pH is affected by diet, medications, systemic acid-base disturbances, and renal tubular function. ??pH may affect urinary stone formation. ??For example, urine pH below 6.0 may help reduce the tendency for calcium phosphate stones and pH greater than 6.0 may reduce the tendency for uric acid stone formation. Source: [facility] J [employer]. Last revised 08-07-2017 us Juve Trejo MD LAB MICROBIOLOGY - GENERAL ORD ERABLES Final Result [facility] ([place]) [address] [facility] Department [place] [address] * eGFR (02/12/2023 7:00 PM CDT) eGFR 56 mL/min/1. 73 m2 [facility] ([place]) Comment: Interpretive Data Reference Interval Normal [...] LAB BLOOD ORDERABLES Final Res ult [facility] ([place]) [address] [facility] Department [place] [address] * Differential, auto (02/12/2023 7:00 [...] Neutrophil pct 67.7 % [facility] ([place]) Comment: Interpretive Data Percent cell count reference [...] Final Res ult [facility] ([place]) [address] [facility] Department of Laboratories [place], [place] [id number] * Comprehensive metabolic panel (02/12/2023 7:00 PM [...] Final Res ult [facility] ([place]) [address] [facility] Department [place] [address] * (ABNORMAL) CBC with auto differential (02/12/2023 [...] Final Res ult [facility] ([place]) [address] [facility] Department [place] [address] documented in this encounter Visit Diagnoses Diagnosis Weakness- Primary Other malaise and fatigue Confusion Unspecified psychosis documented in this encounter Care Teams Product Safety Technician Relationship Specialty Start Date End Date Servando Torre MD [address] [place] [address] PCP - General Family Medicine 06/19/22 Mariela Denton MD [address] [place] [address] Referring Physician Gastroenterology 06/19/22 Lexis Barroso OD [address] [place] [address] Occupational Therapy Assistant 09/19/22 documented as of this encounter
--- OUTSIDE RECORDS SUMMARY | 2024-07-15 20:00 | XMS_ITS | Encounter Summary ---
Author Organization 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
--- OUTSIDE RECORDS SUMMARY | 2024-07-15 20:00 | XMS_ITS | Encounter Summary ---
Author Organization [facility] Address [address] [place] [address] Phone Care Team Providers Care Vice President Underwriting Name Role Phone Servando Torre MD Primary Care Provider [phone]- [phone] Mariela Denton MD Unavailable [phone] [phone] Lexis Barroso OD Unavailable +1- [phone] Encounter Details Date Type Department Care Team (Late st Contact Info) Description 10/10/2022 9:45 AM CDT Office Visit [facility] Gastroenterology [address] 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 A referral will be placed for [facility]. [facility] [address] [place] [phone] documented in this encounter Progress Notes * [...] female with a past medical history of sna- ulcerative colitis, who presents today for follow-up. [...] 10/10/2022 05:24 PM Mariela Denton MD, MPH contract specialist Division of Gastroenterology AG/lulu documented in this encounter Plan of Treatment Not on file documented as of this encounter Results * (ABNORMAL) Hemoglobin A1c (10/10/2022 11:14 AM CDT) HbA1c 6.7(H) 5.1 - 5.6 % [facility] [employer] [employer] Comment: HBA1C 5.1 - 5.6 = NORMAL HBA1C 5.7 - 6.4 = PREDIABETES HBA1C >=6.5 = PROVISIONAL DIAGNOSIS OF DIABETES Estimated Average Glucose 146 mg/dL [facility] Blood 10/10/2022 11:1 4 AM CDT 10/10/2022 [...] AM CDT 10/10/2022 12:04 PM CDT Narrative [facility] - 10/10/2022 1:25 PM CDT Current interpretive data was last updated June 29, 2021. us Mariela Denton MD LAB BLOOD ORDERABLE S Final Result [facility] * (ABNORMAL) [...] MD LAB BLOOD ORDERABLE S Final Result [facility] documented in [...] as of this encounter Care Teams Vice President Underwriting Relationship Specialty Start Date End Date Servando Torre MD [address] [facility] [facility] [address] [place] [address] PCP - General Family Medicine 06/19/22 Mariela Denton MD [address] [place] [address] Referring Physician Gastroenterology 06/19/22 Lexis Barroso OD [address] [place] [address] Magazine Repairer 09/19/22 documented as of this encounter
--- OUTSIDE RECORDS SUMMARY | 2024-07-15 20:00 | XMS_ITS | Encounter Summary ---
Author Organization [facility] Medical Group Address [address] [facility] [address] [place] [address] Care Team Providers Care Senior Safety Management Consultant Name Role Phone Servando Torre MD Primary Care Provider [phone] Mariela Denton MD Unavailable [phone] [phone] Reason for Visit * Reason Onset Date Comments Lab Results 08/02/2022 Encounter Details Date Type Department Care Team (Late st Contact Info) Description 08/02/2022 Telephone [facility] Medical [facility] Primary Care at [address] [address] Servando Torre MD [address] [place] [address] [address] [place] [address] Lab Results Social History Tobacco [...] file Legal Sex Female 9:30 AM 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 LMOM to contact the office back at [phone] Regarding: lab results Telephone task has been made. Please relay: Cholesterol well controlled, nice job EDICAL EQUIPMENT TECHNICIAN * Telephone Encounter - Regina Toscano MA - 08/02/2022 2:51 PM BIOMEDICAL EQUIPMENT TECHNICIAN ----- Message from Marixa San NP sent at 07/26/2022 4:29 PM BIOMEDICAL EQUIPMENT TECHNICIAN ----- Cholesterol well controlled, nice job EDICAL EQUIPMENT TECHNICIAN documented in this encounter Plan of Treatment Not on file documented as of this encounter Visit Diagnoses Not on filedocumented in this encounter Additional Health Concerns Infection Onset Date Last Indicated Resolved Time COVID: Recovered Comment:Added based on recent COVID infection. 07/13/2022 07/26/2022 10/11/2022 3:05 AM C DT documented as of this encounter Care Teams Senior Safety Management Consultant Relationship Specialty Start Date End Date Servando Torre MD [address] [facility] [address] [place] [address] PCP - General Family Medicine 06/19/22 Mariela Denton MD [address] [place] [address] Referring Physician Gastroenterology 06/19/22 documented as of this encounter
--- OUTSIDE RECORDS SUMMARY | 2024-07-15 20:00 | XMS_ITS | Encounter Summary ---
Author Organization [facility] Medical Group Address [address] [facility] [address] [place] [address] Care Team Providers Care Textile Conversion Manager Name Role Phone Servando Torre MD Primary Care Provider [phone] Mariela Denton MD Unavailable [phone] [phone] Reason for Visit * Reason Comments Cough Cough ongoing since positive covid on 06/25 Encounter Details Date Type Department Care Team (Late st Contact Info) Description 07/03/2022 4:00 PM PRODUCTION PROOFREADER Office Visit [facility] Outpatient Center [address] [address] Pricilla Olguin NP [address] [place] [address] [address] [place] [address] Cough, unspecified type (Primary Dx); [...] file Legal Sex Female 9:30 AM PRODUCTION PROOFREADER Gender Identity Female 04/05/2022 6:17 PM CDT Sexual Orientation Straight 04/05/2022 6: 17 PM CDT documented as of this encounter Last Filed Vital Signs Vital Sign Reading Time Taken Comments Blood Pressure 148/88 07/03/2022 4:09 PM PRODUCTION PROOFREADER Pulse 68 07/03/2022 4:09 PM PRODUCTION PROOFREADER Temperature 37 ??C (98.6 ??F) 07/03/2022 4:09 PM PRODUCTION PROOFREADER Respiratory Rate 18 07/03/2022 4:09 PM PRODUCTION PROOFREADER Oxygen Saturation 98% 07/03/2022 4:31 PM PRODUCTION PROOFREADER Inhaled Oxygen Concentration - - Weight 70.8 kg (156 lb) 07/03/2022 4:09 PM PRODUCTION PROOFREADER Height 157.5 cm (5' 2 ) 07/03/2022 4:09 PM PRODUCTION PROOFREADER Body Mass Index 28.53 07/03/2022 4:09 PM PRODUCTION PROOFREADER documented in this encounter Patient Instructions * Patient Instructions* Pricilla Olguin NP - 07/03/2022 4:00 PM PRODUCTION PROOFREADER Self-care: Rest as much as possible. Slowly [...] yourself from other people and pets in [facility]: Do not go to work, school, or [...] Quarantine for those exposed to COVID-19 Additionally, [facility] is updating the recommended quarantine period for [...] to stay home until your fever resolves. UCTION PROOFREADER documented in this encounter Ordered Prescriptions Prescription [...] tested due to 3 other people at [facility] coming down with COVID. Patient states she [...] tenderness or frontal sinus tenderness. Mouth/Throat: Lips: Bootjack. Mouth: Mucous membranes are moist. Tongue: Tongue [...] other people and pets in [facility]: Do not go to work, school, or [...] know about COVID-19 and the Omicron variant, [facility] is shortening the recommended time for isolation [...] Quarantine for those exposed to COVID-19 Additionally, [facility] is updating the recommended quarantine period for [...] ask questions, questions answered. Pricilla Olguin NP UCTION PROOFREADER documented in this encounter Plan of Treatment Not on file documented as of this encounter Results * (ABNORMAL) Influenza A/B, RSV, and COVID-19 PCR Nasopharyngeal (07/03/2022 4:26 PM PRODUCTION PROOFREADER) Pathologist [facility] COVID-19 RNA Positive(A) Negative [facility] Influenza A RNA Negative Negative [facility] Influenza B RNA Negative Negative [facility] RSV RNA Negative Negative [facility] Comment: Interpretive data: This test is performed using the [employer] Xpert Xpress CoV-2/Flu/RSV plus assay. This is [...] revised 2021. Nasopharyngeal 07/03/2022 4: 26 PM PRODUCTION PROOFREADER 07/03/2022 6:41 PM PRODUCTION PROOFREADER Narrative AILEEN - 07/03/2022 7:57 PM PRODUCTION PROOFREADER Is the Patient experiencing symptoms consistent with COVID?->Yes Date of Symptom Onset->06/25/22 Reason for testing?->Symptomatic Known exposure to confirmed or suspected COVID-19 case?->No Is the patient experiencing any symptoms consistent with COVID (eg. Fever, cough, shortness of breath)?->Yes What is the reason for testing?->Symptoms of COVID-19 in low-risk group (Batched) Pricilla Olguin NP LAB MICROBIOLOGY [facility] Final Result AILEEN [address] [place] [address] documented in this encounter Visit Diagnoses Diagnosis Cough, unspecified type- Primary Positive self-administered antigen test for COVID-19 Cough, unspecified type Positive self-administered antigen test for COVID-19 documented in this encounter Additional Health Concerns Infection Onset Date Last Indicated Resolved Time COVID: Suspected 07/03/2022 07/03/2022 07/03/2022 7:57 PM PRODUCTION PROOFREADER documented as of this encounter Care Teams Textile Conversion Manager Relationship Specialty Start Date End Date Servando Torre MD [address] [address] PCP - General Family Medicine 06/19/22 Mariela Denton MD [address] [place] [address] Referring Physician Gastroenterology 06/19/22 documented as of this encounter
--- OUTSIDE RECORDS SUMMARY | 2024-07-15 20:00 | XMS_ITS | Encounter Summary ---
Author Organization [facility] Medical Group Address [address] [facility] [address] [place] [address] Care Team Providers Care Pneumatic Jacketer Name Role Phone Servando Torre MD Primary Care Provider Mariela Denton MD Unavailable [phone] [phone] Encounter Details Date Type Department Care Team (Late st Contact Info) Description 07/26/2022 9:15 AM GENERAL MAINTENANCE ENGINEER Lab [facility] Medical Group Outpatient Lab at [address] [address] Cough, unspecified type Social History [...] on file Legal Sex Female 9:30 AM GENERAL MAINTENANCE ENGINEER Gender Identity Female 04/05/2022 6:17 PM [...] documented as of this encounter Care Teams Pneumatic Jacketer Relationship Specialty Start Date End Date Servando Torre MD [address] [facility] [address] [place] [address] PCP - General Family Medicine 06/19/22 Mariela Denton MD [address] [place] [address] Referring Physician Gastroenterology 06/19/22 documented as of this encounter
--- OUTSIDE RECORDS SUMMARY | 2024-07-15 20:00 | XMS_ITS | Encounter Summary ---
Author Organization [facility] Healthcare Address [address] [place] [address] Care Team Providers Care 4Th Grade Teacher Name Role Phone Servando Torre MD Primary Care Provider Mariela Denton MD Unavailable [phone] [phone] Encounter Details Date Type Department Care Team (Latest Contact Info) Description 07/03/2022 4:26 PM THRESHING MACHINE OPERATOR - 07/03/2022 11:59 PM THRESHING MACHINE OPERATOR Hospital Encounter [facility] [address] [place], [place] [id number] Cough, unspecified type; Positive self-administered antigen test [...] on file Legal Sex Female 9:30 AM THRESHING MACHINE OPERATOR Gender Identity Female 04/05/2022 6:17 [...] - 07/03/2022 11:59 PM CST Viewed on [employer] SHING MACHINE OPERATOR * Result Encounter Note - Tammy Meehan NP - 07/03/2022 7:58 PM CST Please notify patient of positive COVID-19 test. Patient should rest, stay hydrated, and take zbju-the-lcyybyr medications as needed. Per CDC guidelines, patient [...] doctor or in the ER if needed. SHING MACHINE OPERATOR documented in this encounter Plan of Treatment Not on file documented as of this encounter Procedures Procedure Name Priority Date/Time Associated Diagnosis Comments INFLUENZA A/B, RSV, AND COVID-19 PCR Routine 07/03/2022 4:26 PM THRESHING MACHINE OPERATOR Cough, unspecified type Positive self-administered antigen test for COVID-19 documented in this encounter Results * (ABNORMAL) Influenza A/B, RSV, and COVID-19 PCR Nasopharyngeal (07/03/2022 4:26 PM THRESHING MACHINE OPERATOR) COVID-19 RNA Positive(A) Negative [facility] Influenza A RNA Negative Negative [facility] Influenza B RNA Negative Negative [facility] RSV RNA Negative Negative [facility] Comment: Interpretive data: This test is performed using the [employer] Xpert Xpress CoV-2/Flu/RSV plus assay. This is [...] revised 2021. Nasopharyngeal 07/03/2022 4: 26 PM THRESHING MACHINE OPERATOR 07/03/2022 6:41 PM THRESHING MACHINE OPERATOR Narrative [facility] - 07/03/2022 7:57 PM THRESHING MACHINE OPERATOR Is the Patient experiencing symptoms consistent with COVID?->Yes Date of Symptom Onset->06/25/22 Reason for testing?->Symptomatic Known exposure to confirmed or suspected COVID-19 case?->No Is the patient experiencing any symptoms consistent with COVID (eg. Fever, cough, shortness of breath)?->Yes What is the reason for testing?->Symptoms of COVID-19 in low-risk group (Batched) us Pricilla Olguin NP LAB MICROBIOLOGY - [facility] Final Result AILEEN [address] Department [place] [address] documented in this encounter Visit Diagnoses Diagnosis Cough, unspecified type Positive self-administered antigen test for COVID-19 documented in this encounter Additional Health Concerns Infection Onset Date Last Indicated Resolved Time COVID: Suspected 07/03/2022 07/03/2022 07/03/2022 7:57 PM THRESHING MACHINE OPERATOR COVID19 07/03/2022 07/03/2022 07/13/2022 3:05 AM THRESHING MACHINE OPERATOR documented as of this encounter Care Teams 4Th Grade Teacher Relationship Specialty Start Date End Date Servando Torre MD [address] [facility] [address] [place] [address] PCP - General Family Medicine 06/19/22 Mariela Denton MD [address] [place] [address] Referring Physician Gastroenterology 06/19/22 documented as of this encounter
--- OUTSIDE RECORDS SUMMARY | 2024-07-15 20:00 | XMS_ITS | Encounter Summary ---
Author Organization [facility] Healthcare Address [address] [place] [address] Care Team Providers Care Assisted Living Housekeeper Name Role Phone Servando Torre MD Primary Care Provider [phone]- [phone] Mariela Denton MD Unavailable [phone] [phone] Lexis Barroso OD Unavailable [phone]- [phone] Encounter Details Date Type Department Care Team (Latest Contact Info) Description 02/07/2023 10:42 AM CDT - 02/07/2023 11:59 PM CDT Hospital Encounter [facility] [address] [place] [address] Seizure (HCC); Acute pulmonary edema [...] on file Legal Sex Female 9:30 AM NON FERROUS MATERIAL HANDLER Gender Identity Female 04/05/2022 6:17 PM CDT [...] Results * eGFR (02/07/2023 10:42 AM CDT) [facility] eGFR 73 mL/min/1. 73 m2 AILEEN MATTHEW [...] CDT 02/07/2023 4:22 PM CDT Marixa San OLERICULTURE TEACHER LAB BLOOD ORDERABLES Final Resul t [facility] [address] Department [place] [address] * Differential, auto (02/07/2023 10:42 AM CDT) Neutrophil abs 5.4 1.7 - 6.5 K/cumm [facility] Imm gran abs 0.1 0.0 - 0.1 K/cumm [facility] Lymphocyte abs 1.8 0.8 - 3.3 K/cumm [facility] Monocyte abs 0.7 0.2 - 0.8 K/cumm [facility] Eosinophil abs 0.2 0.0 - 0.5 K/cumm [facility] Basophil abs 0.0 0.0 - 0.1 K/cumm [facility] Neutrophil pct 66.4 % [facility] Comment: Interpretive Data Percent cell count reference ranges are not reported, since discordance with absolute values may lead to misinterpretation of CBC data. Current Interpretive Data was last revised on 2017. Imm gran pct 1.3 % [facility] Comment: Interpretive Data Percent cell count reference ranges are not reported, since discordance with absolute values may lead to misinterpretation of CBC data. Current Interpretive Data was last revised on 2017. Lymphocyte pct 21.4 % [facility] Comment: Interpretive Data Percent cell count reference ranges are not reported, since discordance with absolute values may lead to misinterpretation of CBC data. Current Interpretive Data was last revised on 2017. Monocyte pct 8.3 % [facility] Comment: Interpretive Data Percent cell count reference ranges are not reported, since discordance with absolute values may lead to misinterpretation of CBC data. Current Interpretive Data was last revised on 2017. Eosinophil pct 2.2 % [facility] Comment: Interpretive Data Percent cell count [...] ORDERABLES Final Resul t Performing Organization Address City/[facility]/ZIP Co de Phone Number [facility] [address] Department [place] [address] * (ABNORMAL) CBC with auto differential (02/07/2023 10:42 AM CDT) WBC 8.2 3.8 - 9.9 K/cumm [facility] Hgb 12.5 11.9 - 15.5 g/dL [facility] Hct 41.3 35.6 - 45.5 % [facility] Plt 350 150 - 400 K/cumm [facility] MPV 9.5 9.1 - 12.3 fL [facility] RBC 4.24 3.90 - 5.20 M/cumm [facility] MCV 97.4(H) 81.3 - 96.4 fL [facility] MCH 29.5 27.1 - 33.3 pg [facility] MCHC 30.3(L) 32.3 - 35.7 g/dL [facility] RDW CV 14.7 11.1 - 14.9 % [facility] RDW SD 51.9(H) 35.7 - 48.1 fL [facility] NRBC abs 0.02(H) 0.00 - 0.01 K/cumm [facility] Blood 02/07/2023 10:4 2 AM CDT 02/07/2023 4:21 PM CDT us Marixa San NP LAB BLOOD ORDERABLES Final Resul t Performing Organization Address City/[facility]/ZIP Co de Phone Number AILEEN MATTHEW [address] [place] [address] * (ABNORMAL) Comprehensive metabolic panel [...] ORDERABLES Final Resul t Performing Organization Address City/[facility] Co de Phone Number AILEEN MATTHEW [address] Department of Laboratories [place], [place] [address] * Pro B-type natriuretic peptide (02/07/2023 10:42 [...] CDT 02/07/2023 4:21 PM CDT Marixa San OLERICULTURE TEACHER LAB BLOOD ORDERABLES Final Resul t Performing Organization Address City/State/ZIP Co nv Phone Number AILEEN MATTHEW [address] Department [place] [address] documented in this encounter Visit Diagnoses Diagnosis Seizure (HCC) Other convulsions Acute pulmonary edema (CMS/HCC) (HCC) Unspecified acute edema of lung documented in this encounter Care Teams Assisted Living Housekeeper Relationship Specialty Start Date End Date Servando Torre MD [facility] [address] PCP - General Family Medicine 06/19/22 Mariela Denton MD [facility] [address] [place] [address] Referring Physician Gastroenterology 06/19/22 Lexis Barroso OD [address] [place] [address] Raking Machine Operator 09/19/22 documented as of this encounter
--- OUTSIDE RECORDS SUMMARY | 2024-07-15 20:00 | XMS_ITS | Encounter Summary ---
Author Organization [facility] Healthcare Address [address] [place] [address] Care Team Providers Care Guitar Repair Technician Name Role Phone Servando Torre MD Primary Care Provider [phone] Mariela Denton MD Unavailable [phone] Lexis Barroso OD Unavailable [phone]- [phone] Reason for Visit * MRI/CAT/PET Scan (Routine) - Closed Specialty Diagnoses / Procedures Referred By Contac t Referred To Contact Procedures Neuro CT Outside Reference Karl Turner MD PhD [address] [facility] [address] [place] [address] Phone: tel: fax: Referral ID Status Reason Start Date Expiration Date Visits Re quested Visits Authorized [id number] Closed 02/17/2023 03/18/2024 1 1 Encounter Details Date Type Department Care Team (Latest Contact Info) Description 02/17/2023 5:44 PM CDT - 02/17/2023 11:59 PM CDT Hospital Encounter [facility] [address] [place] [address] Discharge Disposition: Discharge to home or [...] only and have not been reviewed by [facility]. ??There will be no report generated by a [facility]iologist. Narrative [facility] - 02/17/2023 5:44 PM CDT EXAMINATION: ??Images For Reference Purposes Only us Karl Turner MD PhD IMG CT PROCEDURES Final Re sult [facility] documented in this encounter Visit Diagnoses Not on filedocumented in this encounter Care Teams Guitar Repair Technician Relationship Specialty Start Date End Date Servando Torre MD 2 [facility] [address] [place] [address] PCP - General Family Medicine 06/19/22 Mariela Denton MD [address] [place] [address] Referring Physician Gastroenterology 06/19/22 Lexis Barroso OD [address], [place] [address] Rack Washer 09/19/22 documented as of this encounter
--- OUTSIDE RECORDS SUMMARY | 2024-07-15 20:00 | XMS_ITS | Encounter Summary ---
Author Organization [facility] Medical Group Address [address] [facility] [address] [place] [address] Care Team Providers Care Head Of Cytogenetics Name Role Phone Servando Torre MD Primary Care Provider [phone] Mariela Denton MD Unavailable [phone] [phone] Lexis Barroso OD Unavailable [phone]- [phone] Reason for Visit * Reason Onset Date Comments Medical Question/Miscellaneous 02/04/2023 Encounter Details Date Type Department Care Team (Late st Contact Info) Description 02/04/2023 Telephone [facility] Primary Care at [address] [address] Servando Torre MD [address] [place] [address] [address] [place] [address] Medical Question/Miscellaneous Social History Tobacco [...] file Legal Sex Female 9:30 AM DIETARY ASSISTANT Gender Identity Female 04/05/2022 6:17 PM [...] Warm transferredback line. Caller???s Call back #: [phone] Does message need to be routed? No * Telephone Encounter - Rhonda Olivas - 02/04/2023 4:39 PM CDT Call Back Caller???s Concern: Patient's daughter called back after speaking with nurse triage, had additionalquestions regarding getting help from insurance case management team. Warm Transferred to Triage back door at the advice of Lead. Caller???s Call back #: [phone] Does message need to be routed? No documented in this encounter Plan of Treatment Not on file documented as of this encounter Visit Diagnoses Not on filedocumented in this encounter Care Teams Head Of Cytogenetics Relationship Specialty Start Date End Date Servando Torre MD [address] [address] PCP - General Family Medicine 06/19/22 Mariela Denton MD [address] [place] [address] Referring Physician Gastroenterology 06/19/22 Lexis Barroso OD [address] [place] [address] Home Appraiser 09/19/22 documented as of this encounter
--- OUTSIDE RECORDS SUMMARY | 2024-07-15 20:00 | XMS_ITS | Encounter Summary ---
Author Organization [facility] Address [address] [place] [address] Phone Care Team Providers Care Sheet Rock Taper Helper Name Role Phone Servando Torre MD Primary Care Provider [phone] Mariela Denton MD Unavailable [phone] Lexis Barroso OD Unavailable [phone]- [phone] Encounter Details Date Type Department Care Team (Late st Contact Info) Description 11/07/2022 Orders Only [facility] Gastroenterology [address] [facility] 12th [place] [address] [place] [address] [facility] current use of systemic steroids (Primary Dx); [...] on file Legal Sex Female 9:30 AM HAIR SAMPLE MATCHER Gender Identity Female 04/05/2022 6:17 PM CDT Sexual Orientation Straight 04/05/2022 6: 17 PM CDT documented as of this encounter Plan of Treatment Not on file documented as of this encounter Visit Diagnoses Diagnosis termite treater helper current use of systemic steroids- Primary Arthralgia of hip, unspecified laterality Ulcerative colitis with complication, unspecified location (HCC) documented in this encounter Care Teams Sheet Rock Taper Helper Relationship Specialty Start Date End Date Servando Torre MD [address] [address] PCP - General Family Medicine 06/19/22 Mariela Denton MD [address] [place] [address] Referring Physician Gastroenterology 06/19/22 Lexis Barroso OD [address] [place] [address] Fur Machine Operator 09/19/22 documented as of this encounter
--- OUTSIDE RECORDS SUMMARY | 2024-07-15 20:00 | XMS_ITS | Encounter Summary ---
Author Organization [facility] Medical Group Address [address] [facility] [address] [place] [address] Care Team Providers Care Radiologic Technology Teacher Name Role Phone Servando Torre MD Primary Care Provider [phone] Mariela Denton MD Unavailable [phone] [phone] Lexis Barroso OD Unavailable [phone]- [phone] Reason for Visit * Reason Onset Date Comments Medical Question/Miscellaneous 02/07/2023 Encounter Details Date Type Department Care Team (Late st Contact Info) Description 02/07/2023 Telephone [facility] Medical [facility] Primary Care at [address] [address] Servando Torre MD [address] [place] [address] [address] [place] [address] Medical Question/Miscellaneous Social History Tobacco [...] file Legal Sex Female 9:30 AM MANAGER SOUND Gender Identity Female 04/05/2022 6:17 PM CDT [...] of the day. Caller???s Call back #: [phone] Does message need to be routed? Yes-Action Needed documented in this encounter Plan of Treatment Not on file documented as of this encounter Visit Diagnoses Not on filedocumented in this encounter Care Teams Radiologic Technology Teacher Relationship Specialty Start Date End Date Servando Torre MD [address] [facility] [address] [place] [address] PCP - General Family Medicine 06/19/22 Mariela Denton MD [address] [place] [address] Referring Physician Gastroenterology 06/19/22 Lexis Barroso OD [address] [place] [address] Improvement Intern 09/19/22 documented as of this encounter
--- OUTSIDE RECORDS SUMMARY | 2024-07-15 20:00 | XMS_ITS | Encounter Summary ---
Author Organization [facility] Address [address] [place] [address] Phone Care Team Providers Care Cross Cut Saw Operator Name Role Phone Servando Torre MD Primary Care Provider [phone] [phone] Mariela Denton MD Unavailable [phone] [phone] Lexis Barroso OD Unavailable +1- [phone] Encounter Details Date Type Department Care Team (Late st Contact Info) Description 10/10/2022 11:30 AM CDT Lab [facility] Endocrinology Metabolism and Lipid [address] [facility] 12th [place] [address] [place] [address] Ulcerative colitis with complication, unspecified [...] on file Legal Sex Female 9:30 AM CURB MACHINE OPERATOR Gender Identity Female 04/05/2022 6:17 [...] AM CDT 10/10/2022 12:04 PM CDT Narrative [facility] - 10/10/2022 1:25 PM CDT Current interpretive data was last updated June 29, 2021. Mariela Denton MD LAB BLOOD ORDERABLE S Final Result Performing Organization Address City/[facility] Co de Phone Number [facility] * (ABNORMAL) [...] ORDERABLE S Final Result Performing Organization Address [facility] Co de Phone Number [facility] documented in [...] documented as of this encounter Care Teams Cross Cut Saw Operator Relationship Specialty Start Date End Date Servando Torre MD [address] [facility] [address] [place] [address] PCP - General Family Medicine 06/19/22 Mariela Denton MD [address] [place] [address] Referring Physician Gastroenterology 06/19/22 Lexis Barroso OD [address] [place] [address] Sleeping Car Service Attendant 09/19/22 documented as of this encounter
--- OUTSIDE RECORDS SUMMARY | 2024-07-15 20:00 | XMS_ITS | Encounter Summary ---
Author Organization [facility] Address [address] [place] [address] Phone Care Team Providers Care Jigmaker Name Role Phone Servando Torre MD Primary Care Provider +1 [phone] Mariela Denton MD Unavailable +1 -[phone] Lexis Barroso OD Unavailable +1- [phone] Encounter Details Date Type Department Care Team (Late st Contact Info) Description 12/19/2022 Orders Only [facility] [address] [place] [address] Ramon Rowan MD [address] [place] [address] Social History [...] on file Legal Sex Female 9:30 AM DEPARTMENTAL BUYER Gender Identity Female 04/05/2022 6:17 PM CDT [...] results best viewed via link to PDF [facility] [address] [place], [place] [address]c[address]le., ??[address], [place] [address] ? [email or web address] Note to Patients: ??This report may [...] Information: Ramon Rowan M.D. [facility], [address] [place] [id number], ? DERMATOPATHOLOGY REPORT RESULTS ?? DIAGNOSIS: SKIN, [...] ICD-9 A; ZSD.232 ? Clerical Data A; 17614 The Characteristics of some immunohistochemical and immunofluorescence stains as well as in-situ hybridization tests were determined by the [facility] in ongoing assistant quality manager and in compliance with regulations drawn from the Clinical Laboratory Improvement Act of 1988 (CLIA '88). These tests may rely on the use of analyte specific reagents that are subject to specific labeling requirements by the US FDA, and may only be performed in a facility that is certified by the [facility] as a high-complexity laboratory under CLIA '88. ??These tests are used for clinical purposes and are not investigational. ??For lab developed tests, the validation has been reviewed; the performance is considered acceptable for patient testing. Ramon Rowan MD LAB PATHOLOGY ORDERAB LES Final Result documented in this encounter Visit Diagnoses Not on filedocumented in this encounter Care Teams Jigmaker Relationship Specialty Start Date End Date Servando Torre MD [address] [facility] 130 [place] [address] PCP - General Family Medicine 06/19/22 Mariela Denton MD [address] [place] [address] Referring Physician Gastroenterology 06/19/22 Lexis Barroso OD [address] [place] [address] Nut Tightener 09/19/22 documented as of this encounter
--- OUTSIDE RECORDS SUMMARY | 2024-07-15 20:00 | XMS_ITS | Encounter Summary ---
Author Organization [facility] Address [address] [facility] [address] [place] [address] Care Team Providers Care Patient Sitter Name Role Phone Servando Torre MD Primary Care Provider Mariela Denton MD Unavailable +1 -[phone] Encounter Details Date Type Department Care Team (Late st Contact Info) Description 07/12/2022 Telephone [facility] Primary Care at [address] [address] Servando Torre MD [address] [place] [address] [address] [place] [address] Social History Tobacco Use Types [...] on file Legal Sex Female 9:30 AM AIRPORT DRIVER Gender Identity Female 04/05/2022 6:17 PM CDT Sexual Orientation Straight 04/05/2022 6: 17 PM CDT documented as of this encounter Miscellaneous Notes * Telephone Encounter - Servando Torre MD - 07/12/2022 4:18 PM AIRPORT DRIVER ordered ORT DRIVER * Telephone Encounter - Vero Antonio - 07/12/2022 1:36 PM CST Pt is currently being see for her L shoulder with [facility] in [place] , but the pt has been having some gait and balance issues. They are requesting a script for Physical therapy to treat the pt. For any questions you can speak with the provider Saul Ribera. Fx [phone] ORT DRIVER documented in this encounter Plan of Treatment Not on file documented as of this encounter Visit Diagnoses Diagnosis Balance problem- Primary Abnormality of gait documented in this encounter Additional Health Concerns Infection Onset Date Last Indicated Resolved Time COVID19 07/03/2022 07/03/2022 07/13/2022 3:05 AM AIRPORT DRIVER documented as of this encounter Care Teams Patient Sitter Relationship Specialty Start Date End Date Servando Torre MD [address] [place] [address] PCP - General Family Medicine 06/19/22 Mariela Denton MD [address] [place] [address] Referring Physician Gastroenterology 06/19/22 documented as of this encounter
--- OUTSIDE RECORDS SUMMARY | 2024-07-15 20:00 | XMS_ITS | Encounter Summary ---
Author Organization [facility] Address [address] [facility] [address] [place] [address] Care Team Providers Care Winder Hand Name Role Phone Servando Torre MD Primary Care Provider +1- [phone] Mariela Denton MD Unavailable +1 -[phone] Reason for Visit * Diagnostic Imaging (Routine) - Closed Specialty Diagnoses / Procedures Referred By Angel t Referred To Contact Diagnoses Chronic left shoulder pain Procedures XR Shoulder Left 2+ Vw Servando Torre MD [address] [place] [address] Phone: tel: fax: [facility] Referral ID Status Reason Start Date Expiration Date Visits Re quested Visits Authorized [id number] Closed 06/19/2022 07/19/2023 1 1 Encounter Details Date Type Department Care Team (Latest Contact Info) Description 06/19/2022 4:15 PM CONTENT DEVELOPER Ancillary Procedure [facility] Imaging at [address] [id number] Chronic left shoulder pain Social History Tobacco [...] on file Legal Sex Female 9:30 AM CONTENT DEVELOPER Gender Identity Female 04/05/2022 6:17 PM CDT Sexual Orientation Straight 04/05/2022 6: 17 PM CDT documented as of this encounter Plan of Treatment Not on file documented as of this encounter Procedures Procedure Name Priority Date/Time Associated Diagnosis Comments XR SHOULDER LEFT 2 OR MORE VIEWS Schedule Routine, Read Routine (OP Routine) 06/19/2022 4:16 PM CONTENT DEVELOPER Chronic left shoulder pain documented in this encounter Results * XR Shoulder Left 2+ Vw (06/19/2022 4:16 PM CONTENT DEVELOPER) Anatomical Region Laterality Modality Upper Extremities, Shoulder Left Digi hortensia Radiography 06/20/2022 6:31 PM CONTENT DEVELOPER Narrative 06/20/2022 6:32 PM CONTENT DEVELOPER EXAM DESCRIPTION: ?? XR SHOULDER LEFT 2 [...] D: ??06/20/2022 6:32 PM T: Report ID: [id number] Reading Location: ??[id number] Procedure Note Kailey Layton MD - 06/20/2022 [...] Kailey Layton M.D. TW T: Report ID: [id number] Reading Location: [place] [address] us Servando Torre MD IMG XR PROCEDURES Final Res ult documented in this encounter Visit Diagnoses Diagnosis Chronic left shoulder pain Pain in joint, shoulder region documented in this encounter Care Teams Winder Hand Relationship Specialty Start Date End Date Servando Torre MD [address] [facility] 130 [place] [address] PCP - General Family Medicine 06/19/22 Mariela Denton MD [address] [place] [address] Referring Physician Gastroenterology 06/19/22 documented as of this encounter
--- OUTSIDE RECORDS SUMMARY | 2024-07-15 20:00 | XMS_ITS | Encounter Summary ---
Author Organization [facility] Address [address] [facility] [address] [place] [address] Care Team Providers Care Film Technician Name Role Phone Servando Torre MD Primary Care Provider +1- [phone] Mariela Denton MD Unavailable +1 -[phone] Lexis Barroso OD Unavailable +1- [phone] Encounter Details Date Type Department Care Team (Late st Contact Info) Description 02/04/2023 Telephone [facility] Primary Care at [place] [address] [place] [address] Servando Torre MD [address] [place] [address] [address] [place] [address] Social History Tobacco Use Types [...] on file Legal Sex Female 9:30 AM TREE KILLER Gender Identity Female 04/05/2022 6:17 PM CDT Sexual Orientation Straight 04/05/2022 6: 17 PM CDT documented as of this encounter Plan of Treatment Not on file documented as of this encounter Visit Diagnoses Not on filedocumented in this encounter Care Teams Film Technician Relationship Specialty Start Date End Date Servando Torre MD [address] [facility] [address] [place] [address] PCP - General Family Medicine 06/19/22 Mariela Denton MD [address] [place] [address] Referring Physician Gastroenterology 06/19/22 Lexis Barroso OD [address] [place] [address] Senior Benefits Analyst 09/19/22 documented as of this encounter
--- OUTSIDE RECORDS SUMMARY | 2024-07-15 20:00 | XMS_ITS | Encounter Summary ---
Author Organization [facility] Address [address] [facility] [address] [place] [address] Care Team Providers Care Commercial Credit Portfolio Manager Name Role Phone Servando Torre MD Primary Care Provider +1- [phone] Mariela Denton MD Unavailable +1 -[phone] Lexis aBrroso OD Unavailable +1- [phone] Encounter Details Date Type Department Care Team (Late st Contact Info) Description 02/12/[address] [facility] Primary Care at [place] [address] [place] [address] Marixa San NP [address] [facility] 130 [place] [address] Memory changes (Primary Dx) Social [...] on file Legal Sex Female 9:30 AM STAFF DEVELOPMENT COORDINATOR RN Gender Identity Female 04/05/2022 6:17 PM CDT [...] Primary documented in this encounter Care Teams Commercial Credit Portfolio Manager Relationship Specialty Start Date End Date Servando Torre MD [address] [place] [address] PCP - General Family Medicine 06/19/22 Mariela Denton MD [address] [place] [address] Referring Physician Gastroenterology 06/19/22 Lexis Barroso OD [address] [place] [address] Manager Care 09/19/22 documented as of this encounter
--- OUTSIDE RECORDS SUMMARY | 2024-07-15 20:00 | XMS_ITS | Encounter Summary ---
Author Organization [facility] Address [address] [place] [address] Phone Care Team Providers Care Assistant Health Educator Name Role Phone Servando Torre MD Primary Care Provider Mariela Denton MD Unavailable +1 -[phone] Lexis Barroso OD Unavailable +1- [phone] Reason for Visit * Reason Comments Osteopenia * Diagnostic Imaging (Routine) - Closed Specialty Diagnoses / Procedures Referred By Angel braswell Referred To Contact Diagnoses Screening for osteoporosis Asymptomatic menopausal state Procedures Dexa Axial Skeleton Bone Density 1 or 2 Site Servando Torre MD [address] [facility] [address] [place] [address] Phone: tel: fax: External Order Referral ID Status Reason Start Date Expiration Date Visits Re quested Visits Authorized [id number] Closed 09/19/2022 10/19/2023 1 1 Encounter Details Date Type Department Care Team (Latest Contact Info) Description 12/12/2022 2:30 PM CDT Clinical Support [place] [address] [facility] 5th [place] [address] [place] [address] Postmenopausal (Primary Dx); Screening for [...] on file Legal Sex Female 9:30 AM PRODUCT SUPPORT TECHNICIAN Gender Identity Female 04/05/2022 6:17 PM [...] Bone mineral density was performed on a Holo[employer] Green Office Discovery Densitometer. ?? Based on machine cross-calibration [...] by the International Society of Clinical Densitometry. [id number] us Servando Torre MD IMG DXA PROCEDURES Final Re sult documented in this encounter Visit Diagnoses Diagnosis Postmenopausal- Primary Asymptomatic postmenopausal status (age-related) (natural) Screening for osteoporosis Special screening for osteoporosis Asymptomatic menopausal state Osteopenia of multiple sites documented in this encounter Care Teams Assistant Health Educator Relationship Specialty Start Date End Date Servando Torre MD [address] [facility] [address] [place] [address] PCP - General Family Medicine 06/19/22 Mariela Denton MD [address] [place] [address] Referring Physician Gastroenterology 06/19/22 Lexis Barroso OD [address] [place] [address] Box Machine Operator 09/19/22 documented as of this encounter
--- OUTSIDE RECORDS SUMMARY | 2024-07-15 20:00 | XMS_ITS | Encounter Summary ---
Author Organization [facility] Address [address] [facility] [address] [place] [address] Care Team Providers Care Steam Engineer Name Role Phone Servando Torre MD Primary Care Provider +1- [phone] Mariela Denton MD Unavailable +1 -[phone] Lexis Barroso OD Unavailable +1- [phone] Reason for Visit * Reason Onset Date Comments Breathing Problem 02/04/2023 Encounter Details Date Type Department Care Team (Late st Contact Info) Description 02/04/2023 Nurse Triage [facility] Medical [facility] Primary Care at [address] [phone] Teresa Navarro, RN Social History Tobacco Use [...] on file Legal Sex Female 9:30 AM SOFA BACK UPHOLSTERER Gender Identity Female 04/05/2022 6:17 PM CDT Sexual Orientation Straight 04/05/2022 6: 17 PM CDT documented as of this encounter Miscellaneous Notes * Telephone Encounter - Lexis hJaveri MA - 02/05/2023 4:47 PM CDT See mychart message 02/05/2023 * Telephone Encounter - Evelyne Byers RN - 02/04/2023 4:55 PM CDT Patient's daughter calling back from [place] and continues having difficulty with chargingthe portable [...] inthe low 90s. Patient is currently at [facility] charging O2 for ride to [place]. Provided patient's daughter with the phone number for Emmanuelle in [place] for possible O2 availability. Phone is [phone]. * Telephone Encounter - Teresa Navarro RN - 02/04/2023 3:57 PM CDT Lisa Allen daughter, Aby, calling due recent low oxygen event while on vacation in [place]. Caller states they are in [place] for [...] O2 To Go - equipment is in [place]. They went with 3rd option which was [...] further resources regarding their portable oxygen issue. [phone] Reason for Disposition Nursing judgment Protocols used: Information Only Call - No [id number] * Telephone Encounter - Teresa Navarro RN - 02/04/2023 3:52 PM CDT Regarding: Patient having difficulty breathing ----- Message from Rhonda Olivas sent at 02/04/2023 3:45 PM CDT ----- Symptom Based Call Caller's Callback #: [phone] Chief Complaint(s): Patient having difficulty breathing Duration: [...] cpr. Patient's and her daughter are in [place] and are trying to make the trip back home, but patient's oxygen levels continue to dip. Patient sent home from hospital with portable oxygen, but still having difficulty maintaining levels. Does message need to be routed? Yes-Action Needed documented in this encounter Plan of Treatment Not on file documented as of this encounter Visit Diagnoses Not on filedocumented in this encounter Care Teams Steam Engineer Relationship Specialty Start Date End Date Servando Torre MD [facility] [address] PCP - General Family Medicine 06/19/22 Mariela Denton MD [address] [place] [address] Referring Physician Gastroenterology 06/19/22 Lexis Barroso OD [address] [place] [address] Media/Instructional Designer 09/19/22 documented as of this encounter
--- OUTSIDE RECORDS SUMMARY | 2024-07-15 20:00 | XMS_ITS | Encounter Summary ---
Author Organization [facility] Address [address] [place] [address] Phone Care Team Providers Care Hvac Controls Technician Name Role Phone Servando Trore MD Primary Care Provider Mariela Denton MD Unavailable +1 -[phone] Lexis Barroso OD Unavailable +1- [phone] Encounter Details Date Type Department Care Team (Late st Contact Info) Description 02/17/2023 Telephone [facility] Neurology [address] [facility] 6th [place] [address] [place] [address] Eileen Clement, RN Social History [...] on file Legal Sex Female 9:30 AM MINIBUS DRIVER Gender Identity Female 04/05/2022 6:17 PM [...] on filedocumented in this encounter Care Teams Hvac Controls Technician Relationship Specialty Start Date End Date Servando Torre MD [facility] [address] PCP - General Family Medicine 06/19/22 Mariela Denton MD [facility] [address] [place] [address] Referring Physician Gastroenterology 06/19/22 Lexis Barroso OD [address] [place] [address] Press Helper 09/19/22 documented as of this encounter
--- OUTSIDE RECORDS SUMMARY | 2024-07-15 20:00 | XMS_ITS | Encounter Summary ---
Author Organization [facility] Address [address] [place] [address] Care Team Providers Care Trimmer Helper Name Role Phone Servando Torre MD Primary Care Provider Mariela Denton MD Unavailable +1 -[phone] Lexis Barroso OD Unavailable +- [phone] Reason for Visit * Auth/Cert (Routine) Specialty Diagnoses / Procedures Referred By Contac t Referred To Contact Diagnoses Chronic ulcerative colitis with complication, unspecified location (HCC) Chronic ulcerative colitis with complication, unspecified location (HCC) [K51.919] Procedures NH COLONOSCOPY FLX DX W/COLLJ SPEC WHEN PFRMD NH COLONOSCOPY W/BIOPSY SINGLE/MULTIPLE COLONOSCOPY Referral ID Status Reason Start Date Expiration Date Visits Re quested Visits Authorized [id number] 1 1 Encounter Details Date Type Department Care Team (Late st Contact Info) Description 11/29/2022 10:21 AM CDT Anesthesia Event [facility] Endoscopy [address] [place] [address] Aubrey Joyner MD [address] [facility] [address] [place] [address] Anesthesia Record Procedure Summary Procedure Name Responsible Anesthesiologist Anesthesia Start Time Anesthesia Stop Time COLONOSCOPY (Colon) Aurbey Joyner MD 11/29/22 1021 11/29/22 1046 Events [...] on file Legal Sex Female 9:30 AM GEOSPATIAL INFORMATION TECHNOLOGIST Gender Identity Female 04/05/2022 6:17 PM CDT Sexual Orientation Straight 04/05/2022 6: 17 PM CDT documented as of this encounter OR Notes * Anesthesia Postprocedure Evaluation - Aubrey Joyner MD - 11/29/2022 11:45 AM CDT Patient: Lisa Allen Procedure Summary Date: 11/29/22 Room / Location: [facility] ROOM [facility] Anesthesia Start: 1021 Anesthesia Stop: [...] original note were not included. Anesthesia Evaluation Lias Allen is a 77 y.o. female Procedure(s): [...] check glucose with glucose monitor and strip AppbistroToRanovus Ultra Test strip -- 08/16/22 -- Servando [...] Medication protocol when under care of a WELL LOGGING CAPTAIN MUD ANALYSIS Planned anesthesia: General Informed Consent: Anesthesia plan and risks discussed with patient. Plan and Consent Comments: Adv age, FRAIL; [place] Consent and Attending signature: I and/or my [...] mL/hr documented in this encounter Care Teams Trimmer Helper Relationship Specialty Start Date End Date Servando Torre MD [address] [facility] [address] [place] [address] PCP - General Family Medicine 06/19/22 Mariela Denton MD [address] [place] [address] Referring Physician Gastroenterology 06/19/22 Lexis Barroso OD [address] [place] [address] Iuss Analyst 09/19/22 documented as of this encounter
--- OUTSIDE RECORDS SUMMARY | 2024-07-15 20:00 | XMS_ITS | Encounter Summary ---
Author Organization [facility] Address [address] [facility] [address] [place] [address] Care Team Providers Care Database Specialist Name Role Phone Servando Torre MD Primary Care Provider +1- [phone] Mariela Denton MD Unavailable +1 -[phone] Lexis Barroso OD Unavailable +1- [phone] Encounter Details Date Type Department Care Team (Late st Contact Info) Description 02/14/2023 Telephone [facility] Primary Care at [place] [id number] [place] [address] Servando Torre MD [address] [place] [address] [address] [place] [address] Social History Tobacco Use Types [...] file Legal Sex Female 9:30 AM ULTRASONIC SOLDERER Gender Identity Female 04/05/2022 6:17 PM CDT [...] MA - 02/14/2023 5:55 PM CDT P: [phone] option 2,1,2. Pt's daughter notified. * Telephone Encounter - David Everett - 02/14/2023 3:12 PM CDT Pt daughter called and is needing phone number for neurology documented in this encounter Plan of Treatment Not on file documented as of this encounter Visit Diagnoses Not on filedocumented in this encounter Care Teams Database Specialist Relationship Specialty Start Date End Date Servando Torre MD [facility] [address] PCP - General Family Medicine 06/19/22 Mariela Denton MD [address] [place] [address] Referring Physician Gastroenterology 06/19/22 Lexis Barroso OD [address] [place] [address] Rigging Up Man 09/19/22 documented as of this encounter
--- OUTSIDE RECORDS SUMMARY | 2024-07-15 20:00 | XMS_ITS | Encounter Summary ---
Author Organization [facility] Address [address] [facility] [address] [place] [address] Care Team Providers Care Forge Operator Name Role Phone Servando Torre MD Primary Care Provider +1- [phone] Mariela Denton MD Unavailable +1 -[phone] Lexis Barroso OD Unavailable +1- [phone] Encounter Details Date Type Department Care Team (Late st Contact Info) Description 12/29/[address] 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
--- OUTSIDE RECORDS SUMMARY | 2024-07-15 20:00 | XMS_ITS | Encounter Summary ---
Author Organization [facility] Healthcare Address [address] [place] [address] Care Team Providers Care Hand Suture Winder Name Role Phone Servando Torre MD Primary Care Provider [phone] Mariela Denton MD Unavailable +1 -[phone] Lexis Barroso OD Unavailable +1- [phone] Encounter Details Date Type Department Care Team (Latest Contact Info) Description 02/17/2023 5:44 PM CDT - 02/17/2023 11:59 PM CDT Hospital Encounter [facility] [address] [place] [address] Discharge Disposition: Discharge to home or self [...] file Legal Sex Female 9:30 AM ELECTRICAL CALIBRATOR Gender Identity Female 04/05/2022 6:17 PM CDT [...] only and have not been reviewed by [facility] Radiology. ??There will be no report generated by a [facility] Radiologist. Narrative RAD_PACS_BJ - 02/17/2023 5:44 PM CDT EXAMINATION: ??Images For Reference Purposes Only us Karl Turner MD PhD IMG CT PROCEDURES Final Re sult RAD_PACS_[facility] documented in this encounter Visit Diagnoses Not on filedocumented in this encounter Care Teams Hand Suture Winder Relationship Specialty Start Date End Date Servando Torre MD [facility] [address] PCP - General Family Medicine 06/19/22 Mariela Denton MD [facility] [address] [place] [address] Referring Physician Gastroenterology 06/19/22 Lexis Barroso OD [address] [place] [address] Materials Scientist 09/19/22 documented as of this encounter
--- OUTSIDE RECORDS SUMMARY | 2024-07-15 20:00 | XMS_ITS | Encounter Summary ---
Author Organization [facility] Healthcare Address [address] [place] [address] Care Team Providers Care Propellant Assembler Name Role Phone Servando Torre MD Primary Care Provider +1- [phone] Mariela Denton MD Unavailable [phone] [phone] Lexis Barroso OD Unavailable +- [phone] Reason for Visit * Auth/Cert (Routine) Specialty Diagnoses / Procedures Referred By Contac t Referred To Contact Diagnoses Chronic ulcerative colitis with complication, unspecified location (HCC) Chronic ulcerative colitis with complication, unspecified location (HCC) [K51.919] Procedures VA COLONOSCOPY FLX DX W/COLLJ SPEC WHEN PFRMD VA COLONOSCOPY W/BIOPSY SINGLE/MULTIPLE COLONOSCOPY Referral ID Status Reason Start Date Expiration Date Visits Re quested Visits Authorized [id number] 1 1 Encounter Details Date Type Department Care Team (Late st Contact Info) Description 11/29/2022 9:07 AM CDT - 11/29/2022 11:27 AM CDT Hospital Encounter [facility]oscopy [address] [address] Mariela Denton MD [address] [place] [address] Discharge Disposition: Discharge to home or self [...] file Legal Sex Female 9:30 AM ASSISTANT COOK Gender Identity Female 04/05/2022 6:17 PM CDT [...] Diet: Type of diet ordered {GI diet instructions:40544134}. You may eat and drink at . [...] your physician. Pain/Bleeding: You have had {POST BIOPSY/DILITATION:52200650} performed during the procedure. You may expect a little bleeding from the site. Within the next 48 hours, if the bleeding becomes excessive or is accompanied by abdominal or chest pain, please call your physician immediately. If you are on aspirin or NSAIDS (non-steroidal anti-inflammatory drugs) then you can resume in {Endo ASA/NSAIDS:33074451}. If no follow-up appointment is required, you [...] Female Attending MD: Mariela Denton M.D. Room: [facility] ENDOSCOPY ROOM 01 Note Status: Finalized [...] scope was passed under direct vision. The [id number] was introduced through the anus and advanced [...] hours - Please call the Nurse Coordinator: [phone] After hours, evening, nights, weekends and holidays - Please call the hospital metal furnace operator at and ask for the GI fellow rn neonatal. Electronically signed by Mariela Denton M.D. Mariela Denton M.D. 11/29/2022 10:54:08 AM Number of Addenda: 0 Note Initiated On: 11/29/2022 10:18 AM documented in this encounter Miscellaneous Notes * Perioperative Nursing Note - Gay Jasso RN - 11/29/2022 10:50 AM CDT discussed findings. Discharge instructions given to patient, (and by phone - directed to draft roller picker location).Understanding expressed, questions answered.(No signatures due to CoVid19 protocol) Tolerating po fluids. * Pre-Procedure Instructions - Riri Bro RN - 11/28/2022 12:38 PM CDT Please follow all instruction you were given regarding your bowel prep. When you arrive come to [facility] Hospital entrance. As you enter there [...] non-medical transport)by yourself will be allowed Your sweeper driver must be at least 18 y/o If your sweeper driver chooses not to come in to the building or will be picking you up after your procedure-we will call your sweeper driver to confirm your ride home prior to the procedure start time Masking at [facility] is now optional. You may bring a mask and masks are available at hospital entrance. We respect personal choice of anyone who chooses to mask. Be assured employees are ready to mask upon request when providing care. My number is [phone] documented in this encounter Plan of Treatment [...] Female Attending MD: Mariela Denton M.D. Room: [facility] END[facility]COPY [facility]OM 01 Note Status: Finalized [...] The scope was passed under direct vision.The [id number] was introduced through the anusand advanced to [...] business hours - Please call theNurse Coordinator: [phone] After hours, evening, nights, weekends and holidays- Please call the hospital metal furnace operator at and ask for the GI fellow rn neonatal. Electronically signed by Mariela Denton M.D. Mariela Denton M.D. 11/29/2022 10:54:08 AM Number of Addenda: 0 Note Initiated On: 11/29/2022 10:18 AM us Mariela Denton MD ENDOSCOPY PROCEDURE S Final Result * POCT glucose (11/29/2022 9:46 AM CDT) [facility] Glucose, POC 166 70 - 199 mg/dL AILEEN ROSAS Comment: Interpretive Data Glucose is assumed to be non-fasting. Fasting Glucose reference ranges are: 0 - 150 years: ??70 mg/dL - 99 mg/dL Current interpretive data was last revised on 2014. POC Performer [id number] AILEEN ROSAS POC Device Number [id number] AILEEN ROSAS Blood 11/29/2022 9:46 AM CDT 11/29/2022 9:46 AM CDT Mariela Denton MD LAB POCT ORDERABLES - DEVICE Final Result AILEEN CRAIGWCH [address] [facility]. Department [place] [employer] [place] [address] documented in this encounter Visit [...] 11/29/2022 documented in this encounter Care Teams Propellant Assembler Relationship Specialty Start Date End Date Servando Torre MD [facility] [address] PCP - General Family Medicine 06/19/22 Mariela Denton MD [address] [place] [address] Referring Physician Gastroenterology 06/19/22 Lexis Barroso OD [address] [place] [address] Clinical Investigator 09/19/22 documented as of this encounter
--- OUTSIDE RECORDS SUMMARY | 2024-07-15 20:00 | XMS_ITS | Encounter Summary ---
Author Organization [facility] Healthcare Address [address] [place] [address] Care Team Providers Care Wet Wash Assembler Name Role Phone Servando Torre MD Primary Care Provider [phone]- [phone] Mariela Denton MD Unavailable +1 [phone] Lexis Barroso OD Unavailable +- [phone] Reason for Visit * Auth/Cert (Routine) Specialty Diagnoses / Procedures Referred By Contac t Referred To Contact Diagnoses Chronic ulcerative colitis with complication, unspecified location (HCC) Chronic ulcerative colitis with complication, unspecified location (HCC) [K51.919] Procedures [place] COLONOSCOPY FLX DX W/COLLJ SPEC WHEN PFRMD TX COLONOSCOPY W/BIOPSY SINGLE/MULTIPLE COLONOSCOPY Referral ID Status Reason Start Date Expiration Date Visits Re quested Visits Authorized [id number] 1 1 Encounter Details Date Type Department Care Team (Late st Contact Info) Description 11/29/2022 10:30 AM CDT - 11/29/2022 11:00 AM CDT [facility] Endoscopy [address] [place] [address] Mariela Denton MD [address] [facility] [address] [place] [address] COLONOSCOPY Surgery Details Date/Time Status Location OR Service Patient Class Case Class Case Type Trauma Case? 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 You may eat and drink at . [...] your physician. Pain/Bleeding: You have had {POST BIOPSY/DILITATION:79766679} performed during the procedure. You may expect a little bleeding from the site. Within the next 48 hours, if the bleeding becomes excessive or is accompanied by abdominal or chest pain, please call your physician immediately. If you are on aspirin or NSAIDS (non-steroidal anti-inflammatory drugs) then you can resume in {Endo ASA/NSAIDS:96924555}. If no follow-up appointment is required, you [...] Female Attending MD: Mariela Denton M.D. Room: [facility] ENDOSCOPY ROOM 01 Note Status: [...] scope was passed under direct vision. The [id number] was introduced through the anus and advanced [...] hours - Please call the Nurse Coordinator: [phone] After hours, evening, nights, weekends and holidays - Please call the hospital live truck operator at and ask for the GI fellow enrollment consultant. Electronically signed by Mariela Denton M.D. Mariela Denton M.D. 11/29/2022 10:54:08 AM Number of Addenda: 0 Note Initiated On: 11/29/2022 10:18 AM documented in this encounter Miscellaneous Notes * Perioperative Nursing Note - Gay Jasso RN - 11/29/2022 10:50 AM CDT discussed findings. Discharge instructions given to patient, (and by phone - directed to pick up attendant location).Understanding expressed, questions answered.(No signatures due to CoVid19 protocol) Tolerating po fluids. * Pre-Procedure Instructions - Riri Bro RN - 11/28/2022 12:38 PM CDT Please follow all instruction you were given regarding your bowel prep. When you arrive come to [facility] Hospital entrance. As you enter [...] non-medical transport)by yourself will be allowed Your jitney driver must be at least 18 y/o If your jitney driver chooses not to come in to the building or will be picking you up after your procedure-we will call your jitney driver to confirm your ride home prior to the procedure start time Masking at [facility] is now optional. You may bring a mask and masks are available at hospital entrance. We respect personal choice of anyone who chooses to mask. Be assured employees are ready to mask upon request when providing care. My number is [phone] documented in this encounter Plan of Treatment [...] Female Attending MD: Mariela Denton M.D. Room: [facility] ENDOSCOPY ROOM 01 Note Status: [...] The scope was passed under direct vision.The [id number] was introduced through the anusand advanced to [...] business hours - Please call theNurse Coordinator: [phone] After hours, evening, nights, weekends and holidays- Please call the hospital live truck operator at and ask for the GI fellow enrollment consultant. Electronically signed by Mariela Denton M.D. Mariela Denton M.D. 11/29/2022 10:54:08 AM Number of Addenda: 0 Note Initiated On: 11/29/2022 10:18 AM Mariela Denton MD ENDOSCOPY PROCEDURE S Final Result * POCT glucose (11/29/2022 9:46 AM CDT) [facility] Signature Glucose, POC 166 70 - 199 mg/dL AILEEN ROSAS Comment: Interpretive Data Glucose is assumed to be non-fasting. Fasting Glucose reference ranges are: 0 - 150 years: ??70 mg/dL - 99 mg/dL Current interpretive data was last revised on 2014. POC Performer [id number] AILEEN ROSSA POC Device Number [id number] [facility] Blood 11/29/2022 9:46 AM CDT 11/29/2022 9:46 AM CDT Mariela Denton MD LAB POCT ORDERABLES - DEVICE Final Result AI[facility]EN [facility] [address] [facility] [place] [address] documented in this encounter Visit Diagnoses Diagnosis [...] 11/29/2022 documented in this encounter Care Teams Wet Wash Assembler Relationship Specialty Start Date End Date Servando Torre MD [facility] [address] PCP - General Family Medicine 06/19/22 Mariela Denton MD [facility] [address] [place] [address] Referring Physician Gastroenterology 06/19/22 Lexis Barroso OD [address] [place] [address] Sas Developer Analyst 09/19/22 documented as of this encounter
--- OUTSIDE RECORDS SUMMARY | 2024-07-15 20:00 | XMS_ITS | Encounter Summary ---
Author Organization [facility] Medical [facility] Address [address] [facility] [address] [place] [address] Care Team Providers Care Title I Math Tutor Name Role Phone Servando Torre MD Primary Care Provider +1- [phone] Mariela Denton MD Unavailable [phone] [phone] Reason for Referral * Procedure (Routine) - Closed Specialty Diagnoses / Procedures Referred By Angel braswell Referred To Contact Diagnoses Bilateral impacted cerumen Procedures Ear Cerumen Removal Servando Torre MD [address] [place] [address] [address] [place] [address] Phone: tel: fax: [facility] Referral ID Status Reason Start Date Expiration Date Visits Re quested Visits Authorized [id number] Closed 09/11/2022 10/11/2023 1 1 ER Reason for Visit * Reason Comments Cerumen Impaction Pt is here to have e ar cleaning. She saw an maintenance helper and they recommend she see an ENT for wax build up because the wax was close to her ear drum. Encounter Details Date Type Department Care Team (Late Contact Info) Description 09/11/2022 10:00 AM BUSSER Office Visit [facility] Primary Care at [address] [id number] Servando Torre MD [address] [place] [address] [address] [place] [address] Bilateral impacted cerumen (Primary Dx) Social History [...] on file Legal Sex Female 9:30 AM BUSSER Gender Identity Female 04/05/2022 6:17 PM CDT Sexual Orientation Straight 04/05/2022 6: 17 PM CDT documented as of this encounter Last Filed Vital Signs Vital Sign Reading Time Taken Comments Blood Pressure 134/80 09/11/2022 10:13 AM BUSSER Pulse 75 09/11/2022 10:13 AM BUSSER Temperature 36.8 ??C (98.3 ??F) 09/11/2022 1 0:13 AM BUSSER Respiratory Rate - - Oxygen Saturation 98% 09/11/2022 10: 13 AM BUSSER Inhaled Oxygen Concentration - - Weight 70.7 kg (155 lb 12.8 oz) 023 10:13 AM BUSSER Height 157.5 cm (5' 2 ) 09/11/2022 10:1 3 AM BUSSER Body Mass Index 28.5 09/11/2022 10:13 AM BUSSER documented in this encounter Patient Instructions * Patient Instructions* Servando Torre MD - 09/11/2022 10:00 AM BUSSER Successful removal; there is residual cerumen, but not impacted Advising to use at-home earwax cleanser kit once weekly Examples: WaxRx, Debrox, Murine Will re-look next week at [facility] Thanks for coming in today! My medical assistants and I are thankful you have trusted us with your care, and hope that you received EXCELLENT care today! Please do not hesitate to call if you have any questions or concerns at [phone]. You may receive a phone call, text, MYCHART message, or e-mail asking about your care today. We would love to hear your feedback on how EXCELLENT your care wastoday! Wishing you better health, always. Dr. Torre ER * Attachments The following attachments cannot be sent through Care Everywhere. * Cerumen Impaction (General Information) (Malian) documented in this encounter Progress Notes * Servando Torre MD - 09/11/2022 10:00 AM CST Images from the original note were not included. Subjective/Objective Patient ID: Lisa Allen is a 77 y.o. female. Chief Complaint Cerumen Impaction (Pt is here to have ear cleaning. She saw an maintenance helper and they recommend she see an ENT for wax build up because the wax was close to her ear drum.) Lisa sent here from her maintenance helper, who told her with her impacted ears [...] office note has been partially dictated using [employer] software, and as a result portions of the record may have been created with this software. Occasional wrong-word or 'fwrau-z-xnwn' substitutions may have occurred due to the inherent limitations of voice recognition software. Read the chartcarefully and recognize, using context, where substitutions have occurred. ER documented in this encounter Procedure Notes * Servando Torre MD - 09/11/2022 10:00 AM CSTAssociated Order(s): Ear Cerumen Removal Post-Procedure Diagnose(s): Bilateral impacted cerumen Ear Cerumen Removal Performed by: Servando Torre MD Authorized by: Servando Torer MD Consent Given by: Patient Timeout: prior [...] the procedure well with no immediate complications ER documented in this encounter Plan of Treatment Not on file documented as of this encounter Procedures Procedure Name Priority Date/Time Associated Diagnosis Comments ND REMOVAL IMPACTED CERUMEN INSTRUMENTATION UNILAT Routine 09/11/2022 10:00 AM BUSSER Bilateral impacted cerumen documented in this encounter Results * ND REMOVAL IMPACTED CERUMEN INSTRUMENTATION UNILAT (09/11/2022 10:00 AM BUSSER) Narrative Servando Torre MD - 09/11/2022 10:00 AM BUSSER Servando Torre MD ? 09/13/2022 ??5:49 PM [...] documented as of this encounter Care Teams Title I Math Tutor Relationship Specialty Start Date End Date Servando Torre MD [address] [facility] [address] [place] [address] PCP - General Family Medicine 06/19/22 Mariela Denton MD [address] [place] [address] Referring Physician Gastroenterology 06/19/22 documented as of this encounter
--- OUTSIDE RECORDS SUMMARY | 2024-07-15 20:00 | XMS_ITS | Encounter Summary ---
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
--- OUTSIDE RECORDS SUMMARY | 2024-07-15 20:00 | XMS_ITS | Encounter Summary ---
Author Organization [facility] Healthcare Address [address] [place] [address] Care Team Providers Care Helpdesk Technician Name Role Phone Servando Torre MD Primary Care Provider Mariela Denton MD Unavailable [phone] [phone] Encounter Details Date Type Department Care Team (Latest Contact Info) Description 07/26/2022 8:52 AM SITE PLANNER - 07/26/2022 11:59 PM SITE PLANNER Hospital Encounter [facility] [address] [place], [place] [id number] Mixed hyperlipidemia Discharge Disposition: Discharge to home [...] on file Legal Sex Female 9:30 AM SITE PLANNER Gender Identity Female 04/05/2022 6:17 PM CDT [...] Comments LIPID PANEL Routine 07/26/2022 8:52 AM SITE PLANNER Mixed hyperlipidemia documented in this encounter Results * Lipid panel (07/26/2022 8:52 AM SITE PLANNER) Cholesterol 152 30 - 199 mg/dL AILEEN [...] ratio 3 AILEEN Blood 07/26/2022 8:52 AM SITE PLANNER 07/26/2022 2:37 PM SITE PLANNER Servando Torre MD LAB BLOOD ORDERABLES Final Result Performing Organization Address City/State/[facility] Phone Number AILEEN [address] [address] Department [place] [address] documented in this encounter Visit Diagnoses Diagnosis Mixed hyperlipidemia documented in this encounter Additional Health Concerns Infection Onset Date Last Indicated Resolved Time COVID: Recovered Comment:Added based on recent COVID infection. 07/13/2022 07/26/2022 10/11/2022 3:05 AM C DT documented as of this encounter Care Teams Helpdesk Technician Relationship Specialty Start Date End Date Servando Torre MD [address] [address] PCP - General Family Medicine 06/19/22 Mariela Denton MD [address] [place] [address] Referring Physician Gastroenterology 06/19/22 documented as of this encounter
--- OUTSIDE RECORDS SUMMARY | 2024-07-15 20:00 | XMS_ITS | Encounter Summary ---
Author Organization [facility] Address [address] [facility] [address] [place] [address] Care Team Providers Care Dry Drug Worker Name Role Phone Servando Torre MD Primary Care Provider [phone]- [phone] Mariela Denton MD Unavailable +1 [phone] Lexis Barroso OD Unavailable +1- [phone] Reason for Visit * Reason Comments Health Maintenance 3 mo Encounter Details Date Type Department Care Team (Late st Contact Info) Description 12/19/2022 2:00 PM CDT Office Visit [facility] Primary Care at [address] [address] Servando Torre MD [address] [place] [address] [address] [place] [address] Hypertension associated with type 2 [...] on file Legal Sex Female 9:30 AM YARD HAND Gender Identity Female 04/05/2022 6:17 PM [...] you have any questions or concerns at [phone]. You may receive a phone call, text, [...] last revised on 2014. POC Performer 11/29/2022 [id number] Final POC Device Number 11/29/2022 [id number] Final Assessment/Plan Diagnoses and all orders for [...] office note has been partially dictated using [employer] software, and as a result portions of the record may have been created with this software. Occasional wrong-word or 'llcen-c-tvxi' substitutions may have occurred due to the [...] children were not included. ?? (Diabetes Care 31:8024-1667, 2007). ??The eAG is not equivalent to a fasting glucose. Blood 03/21/2023 3:20 PM CDT 03/21/2023 6:04 PM CDT Servando Torre MD LAB BLOOD ORDERABLES Final Result Performing Organization Address [facility] Co pr Phone Number ALBERTCITLALI [address] [place] [address] * (ABNORMAL) Albumin Creatinine Ratio, [...] PM CDT 03/21/2023 6:04 PM CDT Result [facility] Servando Torre MD LAB URINE ORDERABLES Final Result Performing Organization Address [facility] Co de Phone Number AILEEN MATTHEW [address] [place] [address] documented in this encounter Visit Diagnoses Diagnosis Hypertension associated with type 2 diabetes mellitus (HCC)- Primary Hyperlipidemia due to type 2 diabetes mellitus (HCC) Gastroesophageal reflux disease without esophagitis Esophageal reflux documented in this encounter Care Teams Dry Drug Worker Relationship Specialty Start Date End Date Servando Torre MD [address] [address] PCP - General Family Medicine 06/19/22 Mariela Denton MD [address] [place] [address] Referring Physician Gastroenterology 06/19/22 Lexis Barroso OD [address] [place] [address] Certified Ophthalmic Technician 09/19/22 documented as of this encounter
--- OUTSIDE RECORDS SUMMARY | 2024-07-15 20:00 | XMS_ITS | Encounter Summary ---
Author Organization [facility] [place] [facility] Address [address] [place] [address] Phone Care Team Providers Care Metal Window Screen Assembler Name Role Phone Servando Torre MD Primary Care Provider [phone] Mariela Denton MD Unavailable [phone] Reason for Visit * Reason Onset Date Comments Infusion & Covid 07/02/2022 Encounter Details Date Type Department Care Team (Late st Contact Info) Description 07/02/2022 Telephone [facility] Gastroenterology Formerly [facility] 12th [place] [address] [place] [address] Lexis Renteria RN Infusion & [...] on file Legal Sex Female 9:30 AM SLAB GRINDER Gender Identity Female 04/05/2022 6:17 PM CDT Sexual Orientation Straight 04/05/2022 6: 17 PM CDT documented as of this encounter Miscellaneous Notes * Telephone Encounter - Lexis Renteria RN - 07/02/2022 3:47 PM CST Received a VM from Varsha with [facility] in [place]. Patient is calling to schedule her Entyvio, [...] line in case she needs additional clarification. GRINDER documented in this encounter Plan of Treatment Not on file documented as of this encounter Visit Diagnoses Not on filedocumented in this encounter Care Teams Metal Window Screen Assembler Relationship Specialty Start Date End Date Servando Torre MD [facility] [address] PCP - General Family Medicine 06/19/22 Mariela Denton MD [address] [place] [address] Referring Physician Gastroenterology 06/19/22 documented as of this encounter
--- OUTSIDE RECORDS SUMMARY | 2024-07-15 20:01 | XMS_ITS | Encounter Summary ---
Author Organization [facility] Facility Care Team Providers Care Nursing Assistants Teacher Name Role Phone Unavailable Primary Care Provider Unavailabl e Encounter Details Date Type Department Care Team (Late st Contact Info) Description 07/08/2012 - 07/08/2012 11:59 PM EXPERIMENTAL PSYCHOLOGIST Hospital Encounter [facility] See MD [address] [facility] [address] [place] [address] Stress fracture of other bone; Nonunion of fracture Social History Tobacco Use Types Packs/Day Years Used Date Smoking Tobacco: Never Assessed Comments Unknown Sex and Gender Information Value Date Recorded Sex Assigned at Not on file Legal Sex Female 9:30 AM EXPERIMENTAL PSYCHOLOGIST Gender Identity Female 04/05/2022 6:17 PM CDT Sexual Orientation Straight 04/05/2022 6: 17 PM CDT documented as of this encounter Plan of Treatment Not on file documented as of this encounter Visit Diagnoses Diagnosis 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
--- OUTSIDE RECORDS SUMMARY | 2024-07-15 20:01 | XMS_ITS | Encounter Summary ---
Author Organization [facility] Address [address] [facility] [address] [place] [address] Care Team Providers Care Face Burler Name Role Phone Servando Torre MD Primary Care Provider Mariela Denton MD Unavailable [phone] Reason for Referral * Diagnostic Imaging (Routine) - Closed Specialty Diagnoses / Procedures Referred By Contac t Referred To Contact Diagnoses Chronic left shoulder pain Procedures XR Shoulder Left 2+ Vw Servando Torre MD [address] [facility] [address] [place] [address] Phone: tel: fax: [facility] Referral ID Status Reason Start Date Expiration Date Visits Re quested Visits Authorized [id number] Closed 06/19/2022 07/19/2023 1 1 L SEWER Encounter Details Date Type Department Care Team (Late st Contact Info) Description 06/19/2022 Orders Only [facility] Primary Care at [address] [address] Servando Torre MD [address] [facility] [address] [place] [address] Chronic left shoulder pain (Primary [...] file Legal Sex Female 9:30 AM LABEL SEWER Gender Identity Female 04/05/2022 6:17 PM CDT Sexual Orientation Straight 04/05/2022 6: 17 PM CDT documented as of this encounter Plan of Treatment Not on file documented as of this encounter Results * XR Shoulder Left 2+ Vw (06/19/2022 4:16 PM LABEL SEWER) Anatomical Region Laterality Modality Upper Extremities, Shoulder Left Digi hortensia Radiography 06/20/2022 6:31 PM LABEL SEWER Narrative 06/20/2022 6:32 PM LABEL SEWER EXAM DESCRIPTION: ?? XR SHOULDER LEFT 2 [...] D: ??06/20/2022 6:32 PM T: Report ID: [id number] Reading Location: ??[id number] Procedure Note Kailey Layton MD - 06/20/2022 [...] 6:32 PM - Electronically signed by Kailey Lyaton M.D. TW T: Report ID: [id number] Reading Location: [id number] us Servando Torre MD IMG XR PROCEDURES Final Res ult documented in this encounter Visit Diagnoses Diagnosis Chronic left shoulder pain- Primary Pain in joint, shoulder region Chronic left shoulder pain Pain in joint, shoulder region documented in this encounter Care Teams Face Burler Relationship Specialty Start Date End Date Servando Torre MD [address] [facility] [address] [place] [address] PCP - General Family Medicine 06/19/22 Mariela Denton MD [address] [place] [address] Referring Physician Gastroenterology 06/19/22 documented as of this encounter
--- OUTSIDE RECORDS SUMMARY | 2024-07-15 20:01 | XMS_ITS | Encounter Summary ---
Author Organization [facility] Address [address] [place] [address] Phone Care Team Providers Care Floor Coverings Installer Name Role Phone Unavailable Primary Care Provider Unavailabl e Reason for Visit * Reason Onset Date Comments New Patient Appointment 05/06/2022 Encounter Details Date Type Department Care Team (Late st Contact Info) Description 05/06/2022 Documentation [facility] Gastroenterology [address] [facility] 12th [place] [address] [place] [address] Coty Sorensen New Patient Appointment Social History Tobacco Use Types Packs/Day Years Used Date Smoking Tobacco: Never Comments Unknown Sex and Gender Information Value Date Recorded Sex Assigned at Not on file Legal Sex Female 9:30 AM BOARD HAMMER OPERATOR Gender Identity Female 04/05/2022 6:17 PM [...]
--- OUTSIDE RECORDS SUMMARY | 2024-07-15 20:01 | XMS_ITS | Encounter Summary ---
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 Also having shoulder pain Encounter Details Date Type Department Care Team (Late st Contact Info) Description 06/19/2022 3:15 PM CRAP GAME BOX PERSON Office Visit [facility] Primary Care at [address] [address] Servando Torre MD [address] [place] [address] [address] [place] [address] Initial Medicare annual wellness visit [...] on file Legal Sex Female 9:30 AM CRAP GAME BOX PERSON Gender Identity Female 04/05/2022 6:17 PM CDT Sexual Orientation Straight 04/05/2022 6: 17 PM CDT documented as of this encounter Last Filed Vital Signs Vital Sign Reading Time Taken Comments Blood Pressure 120/62 06/19/2022 3:29 PM CRAP GAME BOX PERSON Pulse 67 06/19/2022 3:29 PM CRAP GAME BOX PERSON Temperature 36.7 ??C (98 ??F) 06/19/2022 3:29 PM CRAP GAME BOX PERSON Respiratory Rate 20 06/19/2022 3:29 PM CRAP GAME BOX PERSON Oxygen Saturation 97% 06/19/2022 3:29 PM CRAP GAME BOX PERSON Inhaled Oxygen Concentration - - Weight 70.8 kg (156 lb) 06/19/2022 3:29 PM CRAP GAME BOX PERSON Height 157.5 cm (5' 2 ) 06/19/2022 3:29 PM CRAP GAME BOX PERSON Body Mass Index 28.53 06/19/2022 3:29 PM CRAP GAME BOX PERSON documented in this encounter Patient Instructions * Patient Instructions* Servando Torre MD - 06/19/2022 3:15 PM CRAP GAME BOX PERSON Awaiting lipid panel Continuing current regimen, will [...] you have any questions or concerns at [phone]. You may receive a phone call, text, MYCHART message, or e-mail asking about your care today. We would love to hear your feedback on how EXCELLENT your care wastoday! Wishing you better health, always. Dr. Torre GAME BOX PERSON GAME BOX PERSON GAME BOX PERSON documented in this encounter Progress Notes * Servando Torre MD - 06/19/2022 3:15 PM CST MEDICARE ANNUAL WELLNESS VISIT Lisa Komal Allen Medicare Health Risk Assessment Basic Information Do you have an advance directive, such as a living will or durable power of immigration attorney?: Yes Do you have to strain [...] but will be coming off of the [facility],. Problem List, Past Medical and Surgical [...] as Referring Physician (Gastroenterology) Primary Pharmacy/DME suppliers: [id number] - [place], [place] - [address] [facility] [place] [address] [facility] [address] Detection of Cognitive Impairment: The patient does [...] Improve Diet Advanced Directive Durable Power of Bobbin Collector: Yes Living Will: Yes Assessment and Plan: [...] update and summary of today's office visit. GAME BOX PERSON documented in this encounter Miscellaneous Notes * Assessment & Plan Note - Servando Torre MD - 06/23/2022 3:05 PM CRAP GAME BOX PERSON Associated Problem(s): Encounter for Medicare annual wellness [...] Xray ordered today; possibly rotator cuff dysfunction GAME BOX PERSON * Addendum Note - Harleen Gamboa - 06/19/2022 3:15 PM CSTAddended by: HARLEEN GAMBOA on: 07/26/2022 08:52 AM Modules accepted: Orders GAME BOX PERSON documented in this encounter Plan of Treatment Not on file documented as of this encounter Results * Lipid panel (07/26/2022 8:52 AM CRAP GAME BOX PERSON) Pathologist [facility] Cholesterol 152 30 - 199 mg/dL [...] 3 [facility] Blood 07/26/2022 8:52 AM CRAP GAME BOX PERSON 07/26/2022 2:37 PM CRAP GAME BOX PERSON Servando Torre MD LAB BLOOD ORDERABLES Final Result [facility] [address] [place] [address] documented in this encounter Visit [...] COVID: Suspected 07/03/2022 07/03/2022 07/03/2022 7:57 PM CRAP GAME BOX PERSON COVID19 07/03/2022 07/03/2022 07/13/2022 3:05 AM CRAP GAME BOX PERSON COVID: Recovered Comment:Added based on recent COVID infection. 07/13/2022 07/26/2022 10/11/2022 3:05 AM C DT documented as of this encounter Care Teams Information Systems Architect Relationship Specialty Start Date End Date Servando Torre MD [address] [facility] [address] [place] [address] PCP - General Family Medicine 06/19/22 Mariela Denton MD [address] [place] [address] Referring Physician Gastroenterology 06/19/22 documented as of this encounter
--- OUTSIDE RECORDS SUMMARY | 2024-07-15 20:01 | XMS_ITS | Encounter Summary ---
Author Organization [facility] Address [address] [place] [address] Phone Care Team Providers Care Bowling Floor Manager Name Role Phone Jared Abrams MD Primary Care Provider [phone] Encounter Details Date Type Department Care Team (Late st Contact Info) Description 05/30/2022 Orders Only [facility] Gastroenterology [address] [facility] 12th [place] [address] [place] [address] Coty Sorensen Social History Tobacco Use Types Packs/Day Years Used Date Smoking Tobacco: Never Comments Unknown Sex and Gender Information Value Date Recorded Sex Assigned at Not on file 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
--- OUTSIDE RECORDS SUMMARY | 2024-07-15 20:01 | XMS_ITS | Encounter Summary ---
Author Organization [facility] Address [address] [place] [address] Phone Care Team Providers Care Audio Visual Facilities Engineer Name Role Phone Unavailable Primary Care Provider Unavailabl e Reason for Visit * Reason Onset Date Comments Normal TPMT from 05/14/2022 05/20/2022 Encounter Details Date Type Department Care Team (Late st Contact Info) Description 05/20/2022 Documentation [facility] Gastroenterology [address] [facility] 12th [place] [address] [place] [address] Janice Baez LPN Normal TPMT from 05/14/2022 Social History Tobacco Use Types Packs/Day Years Used Date Smoking Tobacco: Never Comments Unknown Sex and Gender Information Value Date Recorded Sex Assigned at Not on file Legal 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
--- OUTSIDE RECORDS SUMMARY | 2024-07-15 20:01 | XMS_ITS | Encounter Summary ---
Author Organization [facility] Facility Care Team Providers Care Rock Room Worker Name Role Phone Unavailable Primary Care Provider Unavailabl e Encounter Details Date Type Department Care Team (Late st Contact Info) Description 04/22/2011 - 04/22/2011 11:59 PM CDT Hospital En[facility] Christensen MD [address] [facility] [address] [place] [address] Aftercare following joint replacement; Aftercare for healing traumatic fracture of upper leg Social History Tobacco Use Types Packs/Day Years Used Date Smoking Tobacco: Never Assessed Comments Unknown Sex and Gender Information Value Date Recorded Sex Assigned at Not on file Legal Sex Female 9:30 AM IRRIGATOR 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
--- OUTSIDE RECORDS SUMMARY | 2024-07-15 20:01 | XMS_ITS | Encounter Summary ---
Author Organization [facility] Address [address] [place] [address] Phone Care Team Providers Care Recruiting Team Lead Name Role Phone Jared Abrams MD Primary Care Provider [phone] Encounter Details Date Type Department Care Team (Late st Contact Info) Description 05/30/2022 10:30 AM CDT Office Visit [facility] Gastroenterology [address] [facility] 12th [place] [address] [place] [address] Mariela Denton MD [address] [place] [address] Ulcerative colitis with complication, unspecified location (HCC) (Primary Dx); Encounter for pathology specialist current azathioprine therapy; High risk medications (not anticoagulants) long-term use Social History Tobacco Use Types Packs/Day Years Used Date Smoking Tobacco: Never Tobacco Cessation:Counseling Given: Not Answered Comments Unknown Sex and Gender Information Value Date Recorded Sex Assigned at Not on file Legal Sex Female 9:30 AM 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 Gender Identity Female 04/05/2022 6:17 PM CDT [...] today Onboarding labs ordered to complete at [facility] today We will submit for [...] OF MEDICINE DIVISION OF GASTROENTEROLOGY Clinic Address: [address] [place] [address], [address], [place] [address] Mailing Address: [address] [place] [address] [address] Inflammatory Bowel Disease Initial Office Visit Note [...] 25-OH 29(L) 30 - 80 ng/mL [facility] Blood 05/30/2022 12:3 9 PM CDT 05/30/2022 12:57 PM CDT us Mariela Denton MD LAB BLOOD ORDERABLE S Final Result [facility] [place] [address] * (ABNORMAL) Vitamin B12 (05/30/2022 12:39 PM CDT) Vitamin B12 >2,000(H) 230 - 1,250 pg/mL [facility] Blood 05/30/2022 12:3 9 PM CDT 05/30/2022 12:57 PM CDT us Mariela Denton MD LAB BLOOD ORDERABLE S Final Result Performing Organization Address City/[facility]/ZIP Co de Phone Number [facility] [place] [address] * Iron profile w/ IBC (05/30/2022 12:39 PM CDT) Iron 98 35 - 145 mcg/dL [facility] TIBC 280 250 - 400 mcg/dL [facility] Transferrin saturation 35 20 - 50 % [facility] Blood 05/30/2022 12:3 9 PM CDT 05/30/2022 12:57 PM CDT us Mariela Denton MD LAB BLOOD [place] [address] * Ferritin (05/30/2022 12:39 PM CDT) Ferritin 75 13 - 150 ng/mL [facility] Blood 05/30/2022 12:3 9 PM CDT 05/30/2022 12:57 PM CDT us Mariela Denton MD LAB BLOOD ORDERABLE S Final Result Performing Organization Address City/[facility] Co de Phone Number [facility] [place] [address] * Erythrocyte sedimentation rate (05/30/2022 12:39 PM CDT) [facility] Erythrocyte sedimentation rate 18 1 - 30 mm/hr [facility] Blood 05/30/2022 12:3 9 PM CDT 05/30/2022 12:57 PM CDT us Mariela Denton MD LAB BLOOD ORDERABLE S Final Result Performing Organization Address [facility] Co de Phone Number [facility] [place] [address] * CRP (acute phase) (05/30/2022 12:39 PM CDT) [facility] CRP 0.9 <=10.0 mg/L [facility] Blood 05/30/2022 12:3 9 PM CDT 05/30/2022 12:57 PM CDT us Mariela Denton MD LAB BLOOD ORDERABLE S Final Result Performing Organization Address City/[facility] Co de Phone Number [facility] [place] [address] * Comprehensive metabolic panel (05/30/2022 12:39 PM CDT) [facility] Sodium 141 135 - 145 mmol/L [facility] Potassium, pl 4.0 3.3 - 4.9 mmol/L [facility] Chloride 101 97 - 110 mmol/L [facility] CO2 30 22 - 32 mmol/L [facility] Anion gap 10 2 - 15 mmol/L [facility] BUN 11 8 - 25 mg/dL [facility] Creatinine 0.83 0.60 - 1.10 mg/dL [facility] Glucose 100 70 - 199 mg/dL [facility] Comment: Interpretive Data Fasting glucose [...] 2017. Calcium 10.1 8.5 - 10.3 mg/dL [facility] Bilirubin, total 0.4 0.1 - 1.2 mg/dL [facility] Protein, pl 7.4 6.5 - 8.5 g/dL [facility] Albumin 4.3 3.5 - 5.0 g/dL [facility] Alk phos 74 40 - 130 Units/L [facility] ALT 19 7 - 45 Units/L [facility] AST 28 10 - 45 Units/L [facility] Blood 05/30/2022 12:3 9 PM CDT 05/30/2022 12:57 PM CDT us Mariela Denton MD LAB BLOOD ORDERABLE S Final Result [facility] One [facility] Department [place] [address] * (ABNORMAL) CBC with auto differential (05/30/2022 12:39 PM CDT) WBC 9.3 3.8 - 9.9 K/cumm [facility] Hgb 13.1 11.9 - 15.5 g/dL [facility] Hct 42.4 35.6 - 45.5 % [facility] Plt 332 150 - 400 K/cumm [facility] MPV 9.1 9.1 - 12.3 fL [facility] RBC 4.65 3.90 - 5.20 M/cumm [facility] MCV 91.2 81.3 - 96.4 fL [facility] MCH 28.2 27.1 - 33.3 pg [facility] MCHC 30.9(L) 32.3 - 35.7 g/dL [facility] RDW CV 14.9 11.1 - 14.9 % [facility] RDW SD 49.2(H) 35.7 - 48.1 fL [facility] NRBC abs 0.00 0.00 - 0.01 K/cumm [facility] Blood 05/30/2022 12:3 9 PM CDT 05/30/2022 12:57 PM CDT Mariela Denton MD LAB BLOOD ORDERABLE S Final Result [facility] One [facility] Department [place] [address] * Thiopurine metabolites (05/30/2022 12:39 PM CDT) 6-TG, bld 293 235 - 450 [facility] Comment:Increased possibilit y of response; optimal dosing. 6-MMP, bld 2999 < or = 5700 [facility] Comment: Decreased risk of hepatotoxicity. ADDITIONAL INFORMATION Testing performed by Liquid Chromatography-Tandem Mass Spectrometry (LC-MS/MS) This test was developed and its performance characteristics determined by [facility] in a manner consistent with CLIA requirements. This test has not been cleared or approved by the U.S. Food and Drug Administration. Test Performed by: [facility] Laboratories - [facility] [address] [place] [address] [employer] Product Consultant: Holden Redman M.D. Ph.D.; CLIA# [id number] Blood 05/30/2022 12:3 9 PM CDT 05/30/2022 1:03 PM CDT us Mariela Denton MD LAB BLOOD ORDERABLE S Final Result [facility] [place] [address] documented in this encounter Visit Diagnoses Diagnosis Ulcerative colitis with complication, unspecified location (HCC)- Primary Encounter for jail current azathioprine therapy High risk medications (not [...] 07/02/2022 added in this encounter Care Teams Recruiting Team Lead Relationship Specialty Start Date End Date Jared Abrams MD [address] [place] [id number] PCP - General Internal Medicine 05/30/22 06/18/22 documented as of this encounter
--- OUTSIDE RECORDS SUMMARY | 2024-07-15 20:01 | XMS_ITS | Encounter Summary ---
Author Organization [facility] Address [address] [place] [address] Phone Care Team Providers Care It Systems Administrator Name Role Phone Jared Abrams MD Primary Care Provider [phone] Encounter Details Date Type Department Care Team (Late st Contact Info) Description 05/31/2022 Orders Only [facility] Gastroenterology [address] [facility] 12th [place] [address] [place] [address] Janice Baez LPN Low serum vitamin D (Primary Dx) Social History Tobacco Use Types Packs/Day Years Used Date Smoking Tobacco: Never Comments Unknown Sex and Gender Information Value Date Recorded Sex Assigned at Not on file 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 Lydia portal msg sent to pt. documented in this encounter Plan of Treatment Not on file documented as of this encounter Visit Diagnoses Diagnosis Low serum vitamin D- Primary documented in this encounter Care Teams It Systems Administrator Relationship Specialty Start Date End Date Jared Abrams MD [address] [place] [address] PCP - General Internal Medicine 05/30/22 06/18/22 documented as of this encounter
--- OUTSIDE RECORDS SUMMARY | 2024-07-15 20:01 | XMS_ITS | Encounter Summary ---
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 FINAL REPORT ACC# ??Date Time ??Exam [id number] Oct 05, 2014 17:02:00 [id number] [facility] Plain Film Reference [id number] Oct 05, 2014 17:02:00 [id number] [facility] Plain Film Reference EXAMINATION: ?Images For Reference Purposes Only IMPRESSION: ?These images have been uploaded for Reference purposes only. ??There will be no separate report generated by a [facility] Radiologist. Requested By: Dictated By: ?? VENITA FINK M.D. ??on Oct 05 2014 ??5:06P This document has been electronically signed by: VENITA FINK M.D. on Oct 05 2014 ??5:06P [id number] Procedure Note Provider, MD Silvestre - 11/22/2016 VENITA FINK M.D. FINAL REPORT ACC# Date Time Exam [id number] Oct 05, 2014 17:02:00 [id number] [facility] Plain Film Reference [id number] Oct 05, 2014 17:02:00 [id number] [facility] Plain Film Reference EXAMINATION: Images For Reference Purposes Only IMPRESSION: These images have been uploaded for Reference purposes only. There will be no separate report generated by a [facility] Radiologist. Requested By: Dictated By: VENITA FINK M.D. on Oct 05 2014 5:06P This document has been electronically signed by: VENITA FINK M.D. on Oct 05 2014 5:06P [id number] us Historical Provider MD GRAHAM XR PROCEDURES Final R esult * XR Interpretation Of Outside Films (10/05/2014 5:02 PM CDT) Anatomical Region Laterality Modality N/A Radiographic Keyanna ging 10/05/2014 5:02 PM CDT Narrative 10/05/2014 5:06 PM CDT VENITA FINK M.D. FINAL REPORT ACC# ??Date Time ??Exam [id number] Oct 05, 2014 17:02:00 [id number] [facility] Plain Film Reference [id number] Oct 05, 2014 17:02:00 [id number] [facility] Plain Film Reference EXAMINATION: ?Images For Reference Purposes Only IMPRESSION: ?These images have been uploaded for Reference purposes only. ??There will be no separate report generated by a [facility] Radiologist. Requested By: Dictated By: ?? VENITA FINK M.D. ??on Oct 05 2014 ??5:06P This document has been electronically signed by: VENITA FINK M.D. on Oct 05 2014 ??5:06P [id number] Procedure Note Provider, Silvestre, - 11/22/2016 VENITA FINK M.D. FINAL REPORT ACC# Date Time Exam [id number] Oct 05, 2014 17:02:00 [id number] [facility] Plain Film Reference [id number] Oct 05, 2014 17:02:00 [id number] [facility] Plain Film Reference EXAMINATION: Images For Reference Purposes Only IMPRESSION: These images have been uploaded for Reference purposes only. There will be no separate report generated by a [facility] Radiologist. Requested By: Dictated By: VENITA FINK M.D. on Oct 05 2014 5:06P This document has been electronically signed by: VENITA FINK M.D. on Oct 05 2014 5:06P [id number] us Historical Provider IMG XR PROCEDURES Final R esult documented in this encounter Visit Diagnoses Not on filedocumented in this encounter
--- OUTSIDE RECORDS SUMMARY | 2024-07-15 20:01 | XMS_ITS | Encounter Summary ---
Author Organization [facility] Healthcare Address [address] [place] [address] Care Team Providers Care Certified Personal Finance Counselor Name Role Phone Jared Abrams MD Primary Care Provider [phone] Encounter Details Date Type Department Care Team (Late st Contact Info) Description 05/30/2022 12:20 PM CDT Lab [facility] Advanced Medicine [facility] Advanced Medicine ([facility]) [address] [place] [phone] Ulcerative colitis with complication, unspecified location (HCC); Encounter for long lines operator current azathioprine therapy; High risk medications (not anticoagulants) long-term use Social History Tobacco Use Types Packs/Day Years Used Date Smoking Tobacco: Never Comments Unknown Sex and Gender Information Value Date Recorded Sex Assigned at Not on file Legal Sex Female 9:30 AM HOT KETTLE TENDER Gender Identity Female 04/05/2022 6:17 PM [...] with complication, unspecified location (HCC) Encounter for senior living current azathioprine therapy High risk medications (not [...] * (ABNORMAL) eGFR (05/30/2022 12:39 PM CDT) [facility] eGFR 72(L) 90 - 130 mL/min/1. 73 m2 [facility] Comment: Interpretive Data Reference Interval Normal ?>/= [...] MD LAB BLOOD ORDERABLE S Final Result [facility] Department [place] [address] * Differential, auto (05/30/2022 12:39 PM CDT) Pathologist [facility] Neutrophil abs 6.4 1.7 - 6.5 K/cumm [facility] Imm gran abs 0.1 0.0 - 0.1 K/cumm [facility] Lymphocyte abs 2.2 0.8 - 3.3 K/cumm [facility] Monocyte abs 0.5 0.2 - 0.8 K/cumm [facility] Eosinophil abs 0.2 0.0 - 0.5 K/cumm [facility] Basophil abs 0.0 0.0 - 0.1 K/cumm [facility] Neutrophil pct 68.1 % [facility] Comment: Interpretive Data Percent cell count reference ranges are not reported, since discordance with absolute values may lead to misinterpretation of CBC data. Current Interpretive Data was last revised on 2017. Imm gran pct 0.5 % [facility] Comment: Interpretive Data Percent cell count reference ranges are not reported, since discordance with absolute values may lead to misinterpretation of CBC data. Current Interpretive Data was last revised on 2017. Lymphocyte pct 23.3 % [facility] Comment: Interpretive Data Percent cell count reference ranges are not reported, since discordance with absolute values may lead to misinterpretation of CBC data. Current Interpretive Data was last revised on 2017. Monocyte pct 5.8 % [facility] Comment: Interpretive Data Percent cell count reference ranges are not reported, since discordance with absolute values may lead to misinterpretation of CBC data. Current Interpretive Data was last revised on 2017. Eosinophil pct 1.9 % [facility] Comment: Interpretive Data Percent cell count reference ranges are not reported, since discordance with absolute values may lead to misinterpretation of CBC data. Current Interpretive Data was last revised on 2017. Basophil pct 0.4 % [facility] Comment: Interpretive Data Percent cell count reference ranges are not reported, since discordance with absolute values may lead to misinterpretation of CBC data. Current Interpretive Data was last revised on 2017. Blood 05/30/2022 12:3 9 PM CDT 05/30/2022 12:57 PM CDT us Mariela Denton MD LAB BLOOD ORDERABLE S Final Result [facility] Department [place] [address] * Thiopurine metabolites (05/30/2022 12:39 PM CDT) 6-TG, bld 293 235 - 450 [facility] Comment:Increased possibilit y of response; optimal dosing. 6-MMP, bld 2999 < or = 5700 [facility] Comment: Decreased risk of hepatotoxicity. ADDITIONAL INFORMATION Testing performed by Liquid Chromatography-Tandem Mass Spectrometry (LC-MS/MS) This test was developed and its performance characteristics determined by [facility] in a manner consistent with CLIA requirements. This test has not been cleared or approved by the U.S. Food and Drug Administration. Test Performed by: [facility] Laboratories - [facility] [address] [place] [address] Talkback Host: Holden Redman M.D. Ph.D.; CLIA# [id number] Blood 05/30/2022 12:3 9 PM CDT 05/30/2022 1:03 PM CDT us Mariela Denton MD LAB BLOOD ORDERABLE S Final Result [facility] Department [place] [address] * (ABNORMAL) CBC with auto differential (05/30/2022 12:39 PM CDT) Pathologist [facility] WBC 9.3 3.8 - 9.9 K/cumm [facility] Hgb 13.1 11.9 - 15.5 g/dL [facility] Hct 42.4 35.6 - 45.5 % [facility] Plt 332 150 - 400 K/cumm [facility] MPV 9.1 9.1 - 12.3 fL [facility] RBC 4.65 3.90 - 5.20 M/cumm [facility] MCV 91.2 81.3 - 96.4 fL [facility] MCH 28.2 27.1 - 33.3 pg [facility] MCHC 30.9(L) 32.3 - 35.7 g/dL [facility] RDW CV 14.9 11.1 - 14.9 % [facility] RDW SD 49.2(H) 35.7 - 48.1 fL [facility] NRBC abs 0.00 0.00 - 0.01 K/cumm [facility] Blood 05/30/2022 12:3 9 PM CDT 05/30/2022 12:57 PM CDT us Mariela Denton MD LAB BLOOD ORDERABLE S Final Result [facility] Department [place] [address] * Comprehensive metabolic panel (05/30/2022 12:39 PM CDT) Sodium 141 135 - 145 mmol/L [facility] Potassium, pl 4.0 3.3 - 4.9 mmol/L [facility] Chloride 101 97 - 110 mmol/L [facility] CO2 30 22 - 32 mmol/L [facility] Anion gap 10 2 - 15 mmol/L [facility] BUN 11 8 - 25 mg/dL [facility] Creatinine 0.83 0.60 - 1.10 mg/dL [facility] Glucose 100 70 - 199 mg/dL [facility] Comment: Interpretive Data Fasting glucose [...] Calcium 10.1 8.5 - 10.3 mg/dL [facility] Bilirubin, total 0.4 0.1 - 1.2 mg/dL [facility] Protein, pl 7.4 6.5 - 8.5 g/dL [facility] Albumin 4.3 3.5 - 5.0 g/dL [facility] Alk phos 74 40 - 130 Units/L [facility] ALT 19 7 - 45 Units/L [facility] AST 28 10 - 45 Units/L [facility] Blood 05/30/2022 12:3 9 PM CDT 05/30/2022 12:57 PM CDT us Mariela Denton MD LAB BLOOD ORDERABLE S Final Result [facility] Department [place] [address] * CRP (acute phase) (05/30/2022 12:39 PM CDT) CRP 0.9 <=10.0 mg/L [facility] Blood 05/30/2022 12:3 9 PM CDT 05/30/2022 12:57 PM CDT us Mariela Denton MD LAB BLOOD ORDERABLE S Final Result [facility] Department [place] [address] * Erythrocyte sedimentation rate (05/30/2022 12:39 PM CDT) Erythrocyte sedimentation rate 18 1 - 30 mm/hr [facility] Blood 05/30/2022 12:3 9 PM CDT 05/30/2022 12:57 PM CDT us Mariela Denton MD LAB BLOOD ORDERABLE S Final Result [facility] Department [place] [address] * Ferritin (05/30/2022 12:39 PM CDT) Ferritin 75 13 - 150 ng/mL [facility] Blood 05/30/2022 12:3 9 PM CDT 05/30/2022 12:57 PM CDT us Mariela Denton MD LAB BLOOD ORDERABLE S Final Result [facility] [place] [address] * Iron profile w/ IBC (05/30/2022 12:39 PM CDT) Pathologist [facility] Iron 98 35 - 145 mcg/dL [facility] TIBC 280 250 - 400 mcg/dL [facility] Transferrin saturation 35 20 - 50 % [facility] Blood 05/30/2022 12:3 9 PM CDT 05/30/2022 12:57 PM CDT us Mariela Denton MD LAB BLOOD ORDERABLE S Final Result [facility] [place] [address] * (ABNORMAL) Vitamin B12 (05/30/2022 12:39 PM CDT) [facility] Vitamin B12 >2,000(H) 230 - 1,250 pg/mL [facility] Blood 05/30/2022 12:3 9 PM CDT 05/30/2022 12:57 PM CDT us Mariela Denton MD LAB BLOOD ORDERABLE S Final Result [facility] Department [place] [address] * (ABNORMAL) Vitamin D 25 hydroxy (05/30/2022 12:39 PM CDT) Vitamin D 25-OH 29(L) 30 - 80 ng/mL [facility] Blood 05/30/2022 12:3 9 PM CDT 05/30/2022 12:57 PM CDT us Mariela Denton MD LAB BLOOD ORDERABLE S Final Result [facility] [place] [address] documented in this encounter Visit Diagnoses Diagnosis Ulcerative colitis with complication, unspecified location (HCC) Encounter for long lines operator current azathioprine therapy High risk medications (not anticoagulants) long-term use Encounter for long-term (current) use of other medications documented in this encounter Care Teams Certified Personal Finance Counselor Relationship Specialty Start Date End Date Jared Abrams MD [address] [place] [id number] PCP - General Internal Medicine 05/30/22 06/18/22 documented as of this encounter
--- OUTSIDE RECORDS SUMMARY | 2024-07-15 20:01 | XMS_ITS | Encounter Summary ---
Author Organization [facility] Address [address] [place] [address] Phone Care Team Providers Care Torpedoman'S Mate Name Role Phone Unavailable Primary Care Provider Unavailabl e Reason for Visit * Reason Onset Date Comments Lab Order - TPMT 05/07/2022 Encounter Details Date Type Department Care Team (Late st Contact Info) Description 05/07/2022 Documentation [facility] Gastroenterology [address] [facility] [facility] 12th [place] [address] [place] [id number] Coty Sorensen Lab Order - TPMT Social History Tobacco Use Types Packs/Day Years Used Date Smoking Tobacco: Never Comments Unknown Sex and Gender Information Value Date Recorded Sex Assigned at Not on file Legal Sex Female 9:30 AM TRUCK UNLOADER Gender Identity Female 04/05/2022 6:17 PM CDT Sexual Orientation Straight 04/05/2022 6: 17 PM CDT documented as of this encounter Progress Notes * Coty Sorensen - 05/07/2022 12:59 PM CDT Faxed lab order for TPMT to [facility] ([phone], pt will go in the next couple [...]
--- OUTSIDE RECORDS SUMMARY | 2024-07-15 20:01 | XMS_ITS | Encounter Summary ---
Author Organization [facility] Address [address] [place] [address] Phone Care Team Providers Care Felt Washing Machine Tender Name Role Phone Jared Abrams MD Primary Care Provider [phone] Servando Torre MD Primary Care Provider [phone] Mariela Denton MD Unavailable [phone] Reason for Visit * Reason Onset Date Comments Submitting for Entyvio 06/03/2022 Encounter Details Date Type Department Care Team (Late st Contact Info) Description 06/03/2022 Telephone [facility] Gastroenterology [address] [facility] 12th [place] [address] [place] [address] Janice Baez LPN Submitting for [...] on file Legal Sex Female 9:30 AM PALLETIZER OPERATOR Gender Identity Female 04/05/2022 6:17 PM CDT Sexual Orientation Straight 04/05/2022 6: 17 PM CDT documented as of this encounter Miscellaneous Notes * Telephone Encounter - Janice Baez LPN - 06/18/2022 12:03 PM CST 06/18/2022: Per note from Jaqueline BORREGO on 06/10/2022, pt requested that infusion therapy (new start Entyvio) be arranged for [facility] in [place], [place]. Approval was obtained by pre-cert team for therapy. Infusion auth, infusion order, IOV note, and demographics all faxed to infusion center at . Jaqueline BORREGO cc'd so that she is aware. Asked infusion center to get patient scheduled to start therapy SHIRA. Follow up [employer] portal msg sent to pt notifying her of approval. Advisedpatient to reach out to infusion center next week if she hasn't heard from them by then re: scheduling. Pt provided with phone number for infusion center. -------Fax Transmission Report------- To: Recipient at [phone] Subject: Re: Joseph Allen - Entyvio Referral [Secure] Result: The transmission was successful. Explanation: All Pages Ok Pages Sent: 16 Connect Time: 11 minutes, 54 seconds Transmit Time: 06/18/2022 12:05 Transfer Rate: 9600 Status Code: 0000 Retry Count: 0 Job Id: [id number] Unique Id: [id number] Fax Line: 16 Fax Laborer Cheesemaking: [id number] 07/03/2022: Pt is scheduled to begin Entyvio therapy tomorrow 07/04/2022. ETIZER OPERATOR ETIZER OPERATOR ETIZER OPERATOR * Telephone Encounter - Janice Baez LPN - 06/05/2022 9:55 AM CST Have not received return call from Lisa regarding site of care option ([facility]) so we have not been able to proceed with submitting for Entyvio. Pt's dgtr Aby (proxy) has been communicating with our office via pt's [email or web address] portal. Msg sent to Lisa/Aby this morning to discuss this site of care option and whether this location was OK for Entyvio therapy. Waiting to hear back from patient/dgtr to figure out whether we can proceed with this referral. ETIZER OPERATOR * Telephone Encounter - Janice Baez LPN - 06/03/2022 2:11 PM CST Pt established care with Dr. Denton on 05/30/2022 at which time starting Entyvio therapy for UC was discussed. Pt lives in [place], [place], I was able to locate a facility in [facility] ([facility]) which does have an infusion center. Call placed to infusion center this afternoon to find out about their referral process and whether they administer Entyvio at their center. Spoke with staff member in surgery department (which acts as their infusion center), confirmed that they doadminister Entyvio at their center, do accept [facility] order and can have their medical collections representative co-signif the patient does not have a PCP with privileges at their hospital, they will accept our [facility] order (no addt'l order forms), we are required to obtain auth, and they do draw labs. The staff member that I spoke with was unable to provide me with their Tax ID and NPI numbers and transferred me to Vannessa (medical administrative assistant) who likely would have this information. [...] Direct extension to surgery department P: ext [phone]. Per review of chart, pt has Medicare [...] facility which can administer this therapy in [place], [place] and providing facility name - informed pt that I wanted to touch base with her to verify whether this facility would work for her. Also explained to patient that I was hoping to verify her insurance coverage. Left my direct office number on pt's home voicemail and asked her to give me a call back at her convenience. ETIZER OPERATOR documented in this encounter Plan of Treatment Not on file documented as of this encounter Visit Diagnoses Not on filedocumented in this encounter Care Teams Felt Washing Machine Tender Relationship Specialty Start Date End Date Jared Abrams MD [facility] [place] [address] PCP - General Internal Medicine 05/30/22 06/18/22 Servando Torre MD [facility] [facility] [address] [place] [address] PCP - General Family Medicine 06/19/22 Mariela Denton MD [address] [place] [address] Referring Physician Gastroenterology 06/19/22 documented as of this encounter
--- OUTSIDE RECORDS SUMMARY | 2024-07-15 20:01 | XMS_ITS | Encounter Summary ---
Author Organization [facility] Address [address] [place] [address] Phone Care Team Providers Care Commercial Banker Name Role Phone Jared Abrams MD Primary Care Provider [phone] Encounter Details Date Type Department Care Team (Late st Contact Info) Description 06/10/2022 Orders Only [facility] Gastroenterology [address] [facility] 12th [place] [address] [place] [phone] Lexis Renteria, RN Ulcerative colitis with complication, [...] file Legal Sex Female 9:30 AM SPECIAL DAY CLASS TEACHER Gender Identity Female 04/05/2022 6:17 PM CDT Sexual Orientation Straight 04/05/2022 6: 17 PM CDT documented as of this encounter Progress Notes * Lexis Renteria RN - 06/10/2022 2:01 PM CST Patient would prefer to receive her Entyvio infusions at [facility] in [place]. [facility] therapy planentered (under procedures tab) and routed to pre-cert so that they can obtain the auth. Patient informed and set a reminder to f/u IAL DAY CLASS TEACHER * Marga Pradhan CPhT - 06/10/2022 2:01 PM CST SPECIALTY DRUG INFUSION AUTHORIZATION Patient: Lisa Allen : 1945 Ordering Physician: WILLIAM SHORT NPI #: [id number] DRUG NAME: ENTYVIO DOSE/FREQUENCY: 300MG 0,2,6WEEKS Q 8 WEEKS CPT/ADMIN CODE(S): J3380, 65412, 23518 DX CODE(S): K51.919 LOCATION: [facility] Primary Insurance: MEDICARE ID # [id number] Group # Ins Phone # E-VERIFIED AUTH [...] #: DATE SUBMITTED: PRE-D OUTCOME: Secondary Insurance: [facility] SUPP PLAN ID # [id number] Group # [id number] Ins AUTH #: NOT REQ Effective Date: [...] PRE-D FAX #: DATE SUBMITTED: PRE-D OUTCOME: IAL DAY CLASS TEACHER documented in this encounter Plan of Treatment Not on file documented as of this encounter Visit Diagnoses Diagnosis Ulcerative colitis with complication, unspecified location (HCC)- Primary documented in this encounter Orders Procedures Count Last Ordered Date First Orde red Date ONCBCN OUTPATIENT FACILITY ORDERS 1 022 documented in this encounter Care Teams Commercial Banker Relationship Specialty Start Date End Date Jared Abrams MD [address] [place] [id number] PCP - General Internal Medicine 05/30/22 06/18/22 documented as of this encounter
--- OUTSIDE RECORDS SUMMARY | 2024-07-15 20:01 | XMS_ITS | Encounter Summary ---
Author Organization [facility] Address [address] [place] [address] Phone Care Team Providers Care Shipping Order Clerk Name Role Phone Jared Abrams MD Primary Care Provider [phone] Encounter Details Date Type Department Care Team (Late st Contact Info) Description 06/04/2022 Orders Only [facility] Gastroenterology [address] [facility] 12th [place] [address] [place] [phone] Janice Baez LPN Ulcerative colitis with complication, unspecified location (HCC) (Primary Dx) Social History Tobacco Use Types Packs/Day Years Used Date Smoking Tobacco: Never Comments Unknown Sex and Gender Information Value Date Recorded Sex Assigned at Not on file Legal Sex Female 9:30 AM DUMP TRUCK DRIVER OFF HIGHWAY Gender Identity Female 04/05/2022 6:17 PM CDT [...] Azathioprine refill sent in to pt's local [facility] as pt's dgtr reported that she was running low with her supply at home. TRUCK DRIVER OFF HIGHWAY documented in this encounter Plan of Treatment Not on file documented as of this encounter Visit Diagnoses Diagnosis Ulcerative colitis with complication, unspecified location (HCC)- Primary documented in this encounter Discontinued Medications Medication Sig Discontinue Reason Start Date End Da te azaTHIOprine (IMURAN) 100 mg tablet Take 100 mg by mouth daily Reorder 06/04/2022 documented as of this encounter Care Teams Shipping Order Clerk Relationship Specialty Start Date End Date Jared Abrams MD [address] [place] [address] PCP - General Internal Medicine 05/30/22 06/18/22 documented as of this encounter
--- OUTSIDE RECORDS SUMMARY | 2024-07-15 20:01 | XMS_ITS | Encounter Summary ---
Author Organization [facility] Healthcare Address [address] [place] [address] Care Team Providers Care Insurance Claims Assistant Name Role Phone Jared Abrams MD Primary Care Provider [phone] Encounter Details Date Type Department Care Team (Late st Contact Info) Description 05/30/2022 1:30 PM CDT Immunization [facility] [address] [address] Encounter for vaccination (Primary Dx) Social History Tobacco Use Types Packs/Day Years Used Date Smoking Tobacco: Never Comments Unknown Sex and Gender Information Value Date Recorded Sex Assigned at Not on file Legal Sex Female 9:30 AM FISHER LAMPARA NET Gender Identity Female 04/05/2022 6:17 PM CDT [...] 05/30/2022 documented in this encounter Care Teams Insurance Claims Assistant Relationship Specialty Start Date End Date Jared Abrams MD [address] [place] [id number] PCP - General Internal Medicine 05/30/22 06/18/22 documented as of this encounter
--- OUTSIDE RECORDS SUMMARY | 2024-07-15 20:01 | XMS_ITS | Encounter Summary ---
Author Organization [facility] Facility Care Team Providers Care Clay Miner Name Role Phone Unavailable Primary Care Provider Unavailabl e Encounter Details Date Type Department Care Team (Late st Contact Info) Description 07/17/2011 - 07/17/2011 11:59 PM GROUT PUMP OPERATOR Hospital [facility] [address] [facility] [address] [place] [address] Pain in joint, pelvic region and thigh; History of hip joint replacement by other means; Nonunion of fracture; Localized osteoarthrosis, lower leg; Loose body in knee Social History Tobacco Use Types Packs/Day Years Used Date Smoking Tobacco: Never Assessed Comments Unknown Sex and Gender Information Value Date Recorded Sex Assigned at Not on file Legal Sex Female 9:30 AM GROUT PUMP OPERATOR Gender Identity Female 04/05/2022 6:17 PM [...]
--- OUTSIDE RECORDS SUMMARY | 2024-07-15 20:01 | XMS_ITS | Encounter Summary ---
Author Organization [facility] Facility Care Team Providers Care Solar Fabrication Technician Name Role Phone Unavailable Primary Care Provider Unavailabl e Encounter Details Date Type Department Care Team (Late st Contact Info) Description 10/04/2013 - 10/04/2013 11:59 PM CDT Hospital Encounter [facility] Rick Mcnulty MD [address] [facility] [address] [place] [address] Stress fracture of other bone; Other orthopedic aftercare; Localized osteoarthrosis, lower leg Social History Tobacco Use Types Packs/Day Years Used Date Smoking Tobacco: Never Comments Unknown Sex and Gender Information Value Date Recorded Sex Assigned at Not on file Legal Sex Female 9:30 AM PULLMAN CAR CLERK Gender Identity Female 04/05/2022 6:17 PM [...] agrees with it. ACC# ??Date Time ??Exam [id number] Oct 04, 2013 15:15:00 [id number] Femur 2 views L EXAMINATION: ?Left femur [...] agrees with it. ACC# Date Time Exam [id number] Oct 04, 2013 15:15:00 [id number] Femur 2 views L EXAMINATION: Left femur [...]
--- OUTSIDE RECORDS SUMMARY | 2024-07-15 20:01 | XMS_ITS | Encounter Summary ---
Author Organization [facility] Address [address] [place] [address] Phone Care Team Providers Care Elementary Supervisor Name Role Phone Unavailable Primary Care Provider Unavailabl e Encounter Details Date Type Department Care Team (Late st Contact Info) Description 05/14/2022 Orders Only [facility] Scanning, Provider Social History Tobacco Use Types Packs/Day Years Used Date Smoking Tobacco: Never Comments Unknown Sex and Gender Information Value Date Recorded Sex Assigned at Not on file Legal Sex Female 9:30 AM SALES PERFORMANCE MANAGER Gender Identity Female 04/05/2022 6:17 PM [...]
--- OUTSIDE RECORDS SUMMARY | 2024-07-15 20:01 | XMS_ITS | Encounter Summary ---
Author Organization [facility] Facility Care Team Providers Care Rn Concurrent Review Name Role Phone Unavailable Primary Care Provider Unavailabl e Encounter Details Date Type Department Care Team (Latest Contact Info) Description 02/11/2011 3:14 PM CDT - 02/11/2011 4:00 PM CDT Hospital [facility] Rick Castañeda MD [address] [facility] [address] [place] [address] Stress fracture of shaft of femur; Essential hypertension; Anemia; Obesity; Body mass index 32.0-32.9, adult; Surgical operation with implant of artificial internal device causing abnormal patient reaction, or later complication Social History Tobacco Use Types Packs/Day Years Used Date Smoking Tobacco: Never Assessed Comments Unknown Sex and Gender Information Value Date Recorded Sex Assigned at Not on file Legal Sex Female 9:30 AM BAKER PASTRY Gender Identity Female 04/05/2022 6:17 PM CDT [...]
== END 2024-07-11 10:40 | disposition home or self-care (01) ==
PROVIDERS: Emergency Provider Emergency Medicine; PCP Family Medicine
DX: S01.01XA Laceration without foreign body of scalp, initial encounter (principal); Z23 Encounter for immunization; I10 Essential (primary) hypertension; E78.5 Hyperlipidemia, unspecified; R73.03 Prediabetes; K21.9 Gastro-esophageal reflux disease without esophagitis; K51.90 Ulcerative colitis, unspecified, without complications; H91.91 Unspecified hearing loss, right ear; G31.84 Mild cognitive impairment of uncertain or unknown etiology; Z79.82 Long term (current) use of aspirin; Z79.899 Other long term (current) drug therapy; Z79.84 Long term (current) use of oral hypoglycemic drugs; W07.XXXA Fall from chair, initial encounter
CPT/HCPCS: 12001; 70450; 90471; 90715; 99283; 99284

== ENCOUNTER 2024-07-14 17:20 | Emergency (ER) | payer MEDICARE, SELFPAY ==
--- NOTE | ~2024-07-14 | CT_ITS ---
EXAMINATION: CT brain wo con DATE: 07/14/2024 18:15 INDICATION: Head injury. TECHNIQUE: Computed tomography (CT) of the head was performed without intravenous contrast. The mA wa s adjusted according to patient size. Iterative reconstruction technique was employed. The dose-lengt h product was 605.33 mGy-cm. COMPARISON: Head CT 07/11/2024 FINDINGS: There are scattered areas of low attenuation in the cerebral white matter. There is no intr acranial hemorrhage, acute infarction, or abnormal intracranial mass lesion. The ventricles are hua l in size. There are likely changes of right ocular lens replacement surgery. There is mild mucosal t hickening in the ethmoid sinuses. The mastoid air cells are normal. There is posterior scalp soft tis roberto swelling. Skin claudia are noted. IMPRESSION: 1. Stable moderate nonspecific cerebral white matter disease, which likely represents chronic small v essel ischemic disease. Reviewed, dictated and finalized at location A. RONMENTAL MAINTENANCE WORKER IMPRESSION: 1. Stable moderate nonspecific cerebral white matter disease, which likely repr esents chronic small vessel ischemic disease.
[2024-07-14 17:13] VITALS: BP 164/83; PULSE 71; RESP 20; TEMP 36.8; O2SAT 100
[2024-07-14 17:31] VITALS: BP 164/83; PULSE 71; O2SAT 100
--- NOTE | 2024-07-14 18:07 | ED.GENADULT ---
HPI - General Adult General Chief complaint: Fall Stated complaint: fall Time Seen by Provider: 07/14/24 17:20 History of Present Illness HPI narrative: 79-year-old female present to the emergency department for evaluation after having a ground level fall. Patient was opposing for for graft when she took her hands off her walker and fell backwards. Patient did strike the back of her head but had no loss of consciousness. Patient was able to be assisted to her feet. Patient does have a posterior scalp injury. Patient did have a fall last week and still has the claudia in the scalp. Related Data Home Medications ?Medication ?Instructions ?Recorded ?Confirmed ?Last Taken ?Type amlodipine 5 mg tablet 5 mg PO DAILY 08/18/21 03/20/24 03/20/24 History mesalamine 0.375 gram 0.75 g PO BID 08/18/21 03/20/24 03/20/24 History capsule,extended release 24 hr metoprolol tartrate 50 mg tablet 50 mg PO BID 08/18/21 03/20/24 03/20/24 History multivitamin with minerals 1 tablet PO DAILY 08/18/21 03/20/24 03/20/24 History pantoprazole 40 mg tablet,delayed 40 mg PO QPM 08/18/21 03/20/24 03/19/24 History release ferrous sulfate 324 mg (65 mg 324 mg PO DAILY 06/03/23 03/20/24 03/20/24 History iron) tablet,delayed release metformin 750 mg tablet,extended 750 mg PO DAILY 06/03/23 03/20/24 03/20/24 History release 24 hr vedolizumab 300 mg DIRECTED 06/03/23 03/20/24 02/05/24 History aspirin 81 mg capsule 81 mg PO HS 03/20/24 03/20/24 03/19/24 History buspirone 5 mg tablet 5 mg PO BID 03/20/24 03/20/24 03/20/24 History losartan 100 mg tablet 100 mg PO HS 03/20/24 03/20/24 03/19/24 History pravastatin 40 mg tablet 40 mg PO DAILY 03/20/24 03/20/24 03/20/24 History rivastigmine 4.6 mg/24 hour 4.6 mg topical 03/20/24 03/20/24 03/18/24 History transdermal patch Allergies Allergy/AdvReac Type Severity Reaction Status Date / Time Penicillins Allergy Rash Verified 06/10/24 01:31 Review of Systems Review of Systems: All systems reviewed & are unremarkable except as noted in HPI and below PMFSH Past Medical History Medical History Complex partial seizures MCI (mild cognitive impairment) Deafness in right ear Gastroesophageal reflux disease Prediabetes Hyperlipidemia Ulcerative colitis Hypertension Surgical History Surgical History History of dilation and curettage History of hip surgery Left hip surgery. Family History Family History Mother Diabetes mellitus Hypertension Cancer Cerebrovascular accident Afib Father Cancer Social History Social History Social History: Lives in [place]. Nonsmoker. No alcohol or illicit substance use. 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 Surrogate decision maker: Aby Riley, daughter. Code status: Full code. Smoking status: Never smoker Alcohol intake: never Substance use: never Substance use type: does not use Do You Feel Safe in your Home?: Yes Lack of Transportation: No Lack of Food: Never True Current Housing: I Have Housing Concerned About Future Housing: No Difficulty Paying Gas/Electric Bills: No Difficulty Paying for Meds: No Currently Unemployed: No Education: High School Diploma/GED Difficulty w/ Childcare or Family Care: No Spiritual care concerns: No Exam Narrative: APPEARANCE: Well appearing, no pain, no distress, well-nourished. HEAD: normocephalic, atraumatic. EYES: PERRLA/EOMI, conjunctivae clear. NOSE: Normal no drainage EARS:TMS clear with good light reflex. THROAT: Pharynx clear, no exudate. NECK: Supple. No adenopathy, no masses. RESPIRATORY: Airway patent, respirations nonlabored. Clear to auscultation bilaterally, no rales, rhonchi, wheezing. CARDIOVASCULAR: Regular rate and rhythm without murmurs rubs or gallops. ABDOMINAL: Soft, nontender, nondistended, normal bowel sounds MUSCULOSKELETAL: Moves all extremities. Strength/ROM intact, No edema, No calf tenderness. NEURO: Alert. Cranial nerves II through XII intact. Good gait. Good coordination SKIN: Posterior scalp abrasion with no laceration Course Vital Signs Vital signs: Vital Signs Temperature 98.3 F 07/14/24 17:13 Pulse Rate 71 07/14/24 17:13 Respiratory Rate 20 07/14/24 17:13 Blood Pressure 164/83 H 07/14/24 17:13 Pulse Oximetry 100 07/14/24 17:13 Oxygen Delivery Room Air 07/14/24 17:13 Temperature 98.3 F 07/14/24 17:13 Pulse Rate 71 07/14/24 17:31 Respiratory Rate 20 07/14/24 17:13 Blood Pressure 164/83 H 07/14/24 17:31 Pulse Oximetry 100 07/14/24 17:31 Oxygen Delivery Room Air 07/14/24 17:13 Medical Decision Making MDM Narrative Medical decision making narrative: 79-year-old female presents emergency department for evaluation after having a ground level fall and striking her head. Patient denies any loss of consciousness. Patient does have a posterior scalp abrasion but did not require any additional suture or staple repair. Head CT was negative for acute intracranial abnormality. Patient denies any additional pain or injury. Patient was able to ambulate at baseline. All questions concerns were addressed patient family are comfortable with plan for discharge and close follow-up. Differential Diagnosis Differential Diagnosis: Subdural hematoma, subarachnoid hemorrhage, scalp laceration, skull fracture Vital Signs Vital Signs: Vital Signs Temperature 98.3 F 07/14/24 17:13 Pulse Rate 71 07/14/24 17:13 Respiratory Rate 20 07/14/24 17:13 Blood Pressure 164/83 H 07/14/24 17:13 Pulse Oximetry 100 07/14/24 17:13 Oxygen Delivery Room Air 07/14/24 17:13 Temperature 98.3 F 07/14/24 17:13 Pulse Rate 71 07/14/24 17:31 Respiratory Rate 20 07/14/24 17:13 Blood Pressure 164/83 H 07/14/24 17:31 Pulse Oximetry 100 07/14/24 17:31 Oxygen Delivery Room Air 07/14/24 17:13 Imaging Data Radiologist's impression: Impressions Head CT 07/14/24 18:19 IMPRESSION: 1. Stable moderate nonspecific cerebral white matter disease, which likely represents chronic small vessel ischemic disease. Discharge Plan Discharge Clinical Impression: Head injury Patient Disposition: Home, Self-Care Condition: Stable Instructions: Antibiotic Form, Head Injury (ED) Additional Instructions: continue have close follow-up with your primary care physician. if you have any worsening symptoms then please call or return to the emergency department. Patient Language: Syriac Prescriptions: No Action amlodipine 5 mg tablet 5 mg PO DAILY pantoprazole 40 mg tablet,delayed release (DR/EC) 40 mg PO QPM metoprolol tartrate 50 mg tablet 50 mg PO BID mesalamine 0.375 gram capsule,extended release 24hr 0.75 g PO BID multivitamin with minerals Tablet 1 tablet PO DAILY metformin 750 mg tablet extended release 24 hr 750 mg PO DAILY vedolizumab 300 mg 300 mg DIRECTED Rx Instructions: Every 8 weeks ferrous sulfate 324 mg (65 mg iron) tablet,delayed release (DR/EC) 324 mg PO DAILY buspirone 5 mg tablet 5 mg PO BID pravastatin 40 mg tablet 40 mg PO DAILY losartan 100 mg tablet 100 mg PO HS rivastigmine 4.6 mg/24 hour patch 24 hour 4.6 mg topical HS aspirin 81 mg Capsule 81 mg PO HS lamotrigine [Lamictal] 25 mg Tablet 25 mg PO Q12HR Qty: 60 0RF lamotrigine [Lamictal] 100 mg Tablet 100 mg PO Q12HR Qty: 60 0RF levofloxacin 750 mg tablet 750 mg PO DAILY Qty: 1 0RF Rx Instructions: Take your final tablet on 03/22/24. lacosamide [Vimpat] 100 mg tablet 100 mg PO Q12H Qty: 60 0RF lamotrigine 200 mg tablet 200 mg PO BID Qty: 60 1RF lamotrigine 25 mg tablet 25 mg PO BID 14 Days Qty: 28 0RF cephalexin 500 mg capsule 500 mg PO Q12H 7 Days Qty: 14 0RF acetaminophen 650 mg tablet extended release 650 mg PO Q8H PRN (Reason: pain) Qty: 20 0RF Follow-up/Referrals: Yelitza,Servando Bernstein MD [Primary Care Provider] -
--- OUTSIDE RECORDS SUMMARY | 2024-07-24 00:56 | XMS_ITS | Encounter Summary ---
Author Organization [facility] Facility Care Team Providers Care Cushion Spring Assembler Name Role Phone Unavailable Primary Care Provider Unavailabl e Encounter Details Date Type Department Care Team (Late st Contact Info) Description 10/04/2013 - 10/04/2013 11:59 PM CDT Hospital Encounter [facility] Rick Mcnulty MD [address] [facility] [address] [place] [address] Stress fracture of other bone; Other orthopedic aftercare; Localized osteoarthrosis, lower leg Social History Tobacco Use Types Packs/Day Years Used Date Smoking Tobacco: Never Comments Unknown Sex and Gender Information Value Date Recorded Sex Assigned at Not on file Legal Sex Female 9:30 AM RESEARCH METHODOLOGIST Gender Identity Female 04/05/2022 6:17 PM CDT [...] agrees with it. ACC# ??Date Time ??Exam [id number] Oct 04, 2013 15:15:00 [id number] Femur 2 views L EXAMINATION: ?Left femur [...] agrees with it. ACC# Date Time Exam [id number] Oct 04, 2013 15:15:00 [id number] Femur 2 views L EXAMINATION: Left femur [...]
== END 2024-07-14 18:42 | disposition home or self-care (01) ==
PROVIDERS: Emergency Provider Emergency Medicine; PCP Family Medicine
DX: S09.90XA Unspecified injury of head, initial encounter (principal); I10 Essential (primary) hypertension; E78.5 Hyperlipidemia, unspecified; K21.9 Gastro-esophageal reflux disease without esophagitis; K51.90 Ulcerative colitis, unspecified, without complications; R73.03 Prediabetes; G31.84 Mild cognitive impairment of uncertain or unknown etiology; W18.39XA Other fall on same level, initial encounter
CPT/HCPCS: 70450; 99284

== ENCOUNTER 2024-08-11 04:46 | Inpatient (IN) | payer MEDICARE, SELFPAY ==
[2024-08-11] VITALS (37 sets, daily range): BP systolic 120–183; BP diastolic 56–99; PULSE 68–100; RESP 16–24; TEMP 36.5–37.3; O2SAT 93–100
--- NOTE | ~2024-08-11 | CT_ITS ---
Noncontrast CT scan of the cervical spine Technique: Multiple contiguous axial [address] images of the cervical spine were obtained and rec onstructed in 2D sagittal and coronal planes on the acquisition scanner. Dose reduction technique was used on this scan by utilizing automated exposure control, adjustment of the mA and/or kV according to patient size. The dose-length product (DLP) was 383.42 mGy-cm. Clinical History: Seizure, status post fall COMPARISON: 07/09/2024 Findings: No acute fracture. There is 4 mm anterolisthesis of C4 over C5, unchanged. Intervertebral d isc spaces are relatively well-preserved. There is mild facet joint degenerative change throughout th e cervical spine. No prevertebral soft tissue swelling. Impression: No acute fracture or acute subluxation. Stable 4 mm anterolisthesis of C4 over C5. Mild degenerative spondylosis. Reviewed, dictated and finalized at [facility]. SHIELD WIPER REPAIRER Impression: No acute fracture or acute subluxation. Stable 4 mm anterolisthesis of C4 over C5. Mild degenerative spondylosis.
--- NOTE | ~2024-08-11 | XR_ITS ---
Portable chest x-ray Comparison: 06/10/2024 Clinical History: Seizure Findings: Possible mild central congestive change. No consolidation or pleural effusion. Possible CO PD. Cardiomediastinal silhouette is stable. Bones and soft tissues are unremarkable. Impression: Mild central congestive change. Possible COPD. Reviewed, dictated and finalized at [facility]. PANEL PADDER Impression: Mild central congestive change. Possible COPD.
--- NOTE | ~2024-08-11 | MR_ITS ---
EXAMINATION: MR brain/brain stem wo con DATE: 08/13/2024 09:08 INDICATION: Seizure TECHNIQUE: Magnetic resonance imaging (MRI) of the brain and brainstem was performed without intraven ous contrast. Sequences included sagittal and axial T1-weighted SE, axial diffusion-weighted FS SE, a xial 3D SWAN, axial T2*-weighted GRE, axial T2-weighted FLAIR Propeller, axial T2-weighted Propeller, coronal T2-weighted FLAIR, and coronal T1-weighted 3D FSPGR. Apparent diffusion coefficient (ADC) ma ps were created. COMPARISON: Head CT dated 08/11/2024 FINDINGS: There are no areas of restricted diffusion to suggest acute infarction. No intracranial hemorrhage or abnormal intracranial mass lesion. There are scattered areas of nonspecific increased T2-weighted si gnal intensity in the cerebral white matter, predominantly involving the deep and periventricular whi te matter. There are multiple scattered foci of susceptibility artifact at the bilateral basal gangli a and thalami and bilateral cerebral and cerebellar hemispheres consistent with sequela of chronic mi crohemorrhage which could relate to hypertension or amyloid angiopathy. The largest region is located at the posterior left corpus callosum. There are no intraparenchymal signal abnormalities seen on th e other pulse sequences. The ventricles are symmetric and normal in size. There are no abnormal extra -axial fluid collections. Flow voids are seen in the cerebral arteries on the T2-weighted sequences c onsistent with their expected patency. Mild mucosal thickening the bilateral ethmoid sinuses. Changes of right intraocular lens replacement. IMPRESSION: 1. Numerous foci of susceptibility artifact consistent with sequela of chronic microhemorrhage in the bilateral thalami, basal ganglia, cerebral and cerebellar hemispheres which suggests sequela of eith er chronic hypertension or amyloid angiopathy. 2. Moderate periventricular predominant nonspecific white matter T2 hyperintensity consistent with ch ronic small vessel ischemic disease. Reviewed, dictated and finalized at [facility]. RNATIONAL RELATIONS PROFESSOR IMPRESSION: 1. Numerous foci of susceptibility artifact consistent with sequela of chronic microhemorrhage in the bilateral thalami, basal ganglia, cerebral and cerebella r hemispheres which suggests sequela of either chronic hypertension or amyloid angiopathy. 2. Moderate periventricular predominant nonspecific white matter T2 hyperintens ity consistent with chronic small vessel ischemic disease.
--- NOTE | ~2024-08-11 | CT_ITS ---
CT head without contrast Indication: Seizure, possible fall COMPARISON: 07/14/2024 Technique: Serial scans were obtained through the brain without the administration of contrast. Dose reduction technique was used on this scan by utilizing automated exposure control and iterative recon struction technique. The dose-length product (DLP) was 681.00 mGy-cm. Findings: There is no evidence of intracranial hemorrhage, mass lesion, or acute infarct. The ventri cles and subarachnoid spaces are dilated, consistent with moderate atrophy. Low attenuation regions are seen within the periventricular white matter bilaterally, likely representing changes from chroni c microvascular ischemic disease. There is no evidence of edema, mass effect or midline shift. The visualized paranasal sinuses and mastoid air cells are clear. Impression: No intracranial hemorrhage, mass, or acute infarct. Atrophy and chronic white matter changes, as above. Reviewed, dictated and finalized at [facility]. INE OPERATOR TRANSPLANTER Impression: No intracranial hemorrhage, mass, or acute infarct. Atrophy and chronic white matter changes, as above.
--- NOTE | 2024-08-11 04:53 | ECG_ITS ---
Test Date: 2024-08-11 04:59:07 Measurements Intervals [place] Rate: 98 P: 64 PA: 183 QRS: 56 QRSD: 85 T: 49 QT: 319 QTc: 408 Interpretive Statements SINUS RHYTHM Compared to ECG 06/28/2024 03:21:01 Myocardial infarct finding no longer present T-wave abnormality no longer present Electronically Signed On 08-11-2024 14:26:22 INDUSTRIAL REAL ESTATE AGENT by Fredy Raya M.D.
[2024-08-11] MEDS: SODIUM CHLORIDE 0.9% IV 1,000 ML 999 ML IV CONT (05:22)
[2024-08-11] MEDS: LORazepam INJ (*CRX) 2 MG/ML VIAL IV PUSH (05:22)
[2024-08-11] MEDS: levETIRAcetam 1500MG/NACL100ML 1,500 MG/100 ML BAG 400 MG IVPB (05:23)
[2024-08-11 05:48] LABS: Basophils Absolute Auto 0.1 K/mm3 (0.0-0.1); Basophils Percent Auto 0.5 % (0.2-1.2); Hematocrit 43.3 % (37.0-47.0); Hemoglobin 13.9 g/dL (12.0-15.0); Immature Granulocyte Absolute 0.07 K/mm3 (0.00-0.031); Immature Granulocyte Percent A 0.6 % (0-0.5); Lymphocytes Absolute Auto 1.62 K/mm3 (0.9-3.2); Lymphocytes Percent Auto 14.8 % (18.3-44.2); Mean Corpuscular HGB Conc 32.1 g/dl (32-36); Mean Corpuscular Hemoglobin 28.9 pg (26-34); Monocytes Percent Auto 8.8 % (2.6-8.5); Neutrophils Absolute Auto 8.3 K/mm3 (1.3-6.7); Neutrophils Percent Auto 75.3 % (45.5-73.1); Platelet Count Result 275 k/mm3 (150-375); Red Blood Count 4.81 M/mm3 (4.2-5.4); Red Cell Distribution Width 13.8 % (11.5-14.5)
[2024-08-11] MEDS: LORazepam INJ (*CRX) 2 MG/ML VIAL 1 MG IV PUSH ×2 (05:58→06:29)
[2024-08-11 06:01] LABS: Lactic Acid Reflex 2.6 mmol/L (0.7-2.0)
[2024-08-11 06:07] LABS: Influenza A QL RT-PCR Negative (Negative); Influenza B QL RT-PCR Negative (Negative); RSV RNA, RT-PCR Negative (Negative); SARS-CoV-2 RNA PCR Negative (Negative)
[2024-08-11 06:11] LABS: Add Urine Microscopic? YES; Appearance Urine Clear (Clear); Bacteria Urine None Seen /hpf; Bilirubin Urine Negative (Negative); Blood Urine Negative (Negative); Color Urine Yellow (Yellow); Glucose Urine UA Negative (Negative); Ketones Urine Negative (Negative); Leukocyte Esterase Ur Negative LEU/UL (Negative); Need Manual Microscopic Reviewed; Nitrate Urine Negative (Negative); Non Pathogenic Casts 0-2; Protein Urine 1+ mg/dL (Negative); RBC Urine 0-2 /hpf (0-2); Specific Grav Ur 1.012 (1.001-1.035); Squamous Epithelial Cell Urine None Seen /hpf (Few); Urobilinogen Urine 0.2 mg/dL (<2.0); WBC Urine 0-5 /hpf (0-3); pH Urine 6.5 (5.0-9.0)
[2024-08-11 06:43] LABS: Alanine Aminotransferase 21 U/L (6-35); Albumin Level 4.2 g/dL (3.5-5.1); Alkaline Phosphatase 144 U/L (38-126); Anion Gap 10 mmol/L (4-12); Aspartate Amino Transferase 28 U/L (14-36); Bilirubin,Total 0.6 mg/dL (0.2-1.3); Blood Urea Nitrogen 18 mg/dL (7-17); Calcium 8.1 mg/dL (8.4-10.2); Carbon Dioxide 24 mmol/L (22-30); Chloride 105 mmol/L (98-107); Estimated CRCL calculation 50 ml/min; Estimated Glomerular Filt Rate > 60; Glucose 169 mg/dL (65-110); Magnesium 1.6 mg/dL (1.6-2.3); Potassium 4.2 mmol/L (3.4-5.0); Sodium 139 mmol/L (137-145)
--- NOTE | 2024-08-11 07:49 | ED_ITS ---
HPI - Seizure General Chief Complaint: Seizure Stated Complaint: SEIZURE Time Seen by Provider: 08/11/24 05:12 History of Present Illness HPI Narrative: Patient is an 79-year-old female who presents ER with altered mental status after seizure. Patient has history of seizure disorder and takes Vimpat as well as Lamictal. She received her evening dose. Daughter was in the bedroom with her and patient began seizing. Patient has had prolonged postictal state which is abnormal for her. There have been no significant changes the patient's health her medication over last few days. At baseline patient does have some mild dementia. Seizure History: Yes Related Data Home Medications ?Medication ?Instructions ?Recorded ?Confirmed ?Last Taken ?Type amlodipine 5 mg tablet 5 mg PO DAILY 08/18/21 08/11/24 08/10/24 History mesalamine 0.375 gram 0.75 g PO Q12H 08/18/21 08/11/24 08/10/24 History capsule,extended release 24 hr metoprolol tartrate 50 mg tablet 50 mg PO Q12H 08/18/21 08/11/24 08/10/24 History pantoprazole 40 mg tablet,delayed 40 mg PO HS 08/18/21 08/11/24 08/10/24 History release ferrous sulfate 324 mg (65 mg 324 mg PO DAILY 06/03/23 08/11/24 08/10/24 History iron) tablet,delayed release metformin 750 mg tablet,extended 750 mg PO DAILY 06/03/23 08/11/24 08/10/24 History release 24 hr vedolizumab 300 mg IV PUSH DIRECTED 06/03/23 08/11/24 08/03/24 History aspirin 81 mg capsule 81 mg PO QAM 03/20/24 08/11/24 08/10/24 History losartan 100 mg tablet 100 mg PO HS 03/20/24 08/11/24 08/10/24 History pravastatin 40 mg tablet 80 mg PO HS 03/20/24 08/11/24 08/10/24 History rivastigmine 4.6 mg/24 hour 4.6 mg topical HS 03/20/24 08/11/24 08/10/24 History transdermal patch calcium 315 mg (as 1 tablet PO DAILY 08/11/24 08/11/24 08/10/24 History citrate)-vitamin D3 5 mcg (200 unit) tablet (Calcium Citrate + D) lamotrigine 200 mg tablet 200 mg PO Q12H 08/11/24 08/11/24 08/10/24 History Allergies Allergy/AdvReac Type Severity Reaction Status Date / Time Penicillins Allergy Rash Verified 08/11/24 13:35 Review of Systems 2 Review of Systems: ROS unobtainable: Yes unobtainable due to mental status PMFSH Past Medical History Medical History Diabetes Osteopenia Pseudogout of knee Dementia Complex partial seizures MCI (mild cognitive impairment) Deafness in right ear Gastroesophageal reflux disease Hyperlipidemia Ulcerative colitis Hypertension Surgical History Surgical History History of dilation and curettage History of hip surgery Left hip surgery. Family History Family History Mother Diabetes mellitus Hypertension Cancer Cerebrovascular accident Afib Father Cancer Social History Social History Social History: Lives in [place]. Nonsmoker. No alcohol or illicit substance use. 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 Surrogate decision maker: Aby Riley, daughter. Code status: Full code. Smoking status: Never smoker Second hand tobacco smoke exposure: Yes Alcohol intake: never Substance use: never Substance use type: does not use Do You Feel Safe in your Home?: No Lack of Transportation: No Lack of Food: Never True Current Housing: I Have Housing Concerned About Future Housing: No Difficulty Paying Gas/Electric Bills: No Difficulty Paying for Meds: No Currently Unemployed: No Education: Bachelor's Degree Difficulty w/ Childcare or Family Care: No Spiritual care concerns: No Exam 2 Narrative: GENERAL: Agitated, well-nourished, and having to be redirected from climbing out of bed by patient health care liaison. HEAD: Normocephalic, atraumatic. EYES: Right pupil point, left pupil med dilated due to history of retinal tear and is not abnormal for the patient. ENT: Mucous membranes moist. NECK: Supple. CHEST: Clear to auscultation. No respiratory distress. HEART: Regular rate and rhythm. Normal peripheral pulses. ABDOMEN: Soft, nontender, nondistended. EXTREMITIES: Normal range of motion. No edema. SKIN: Warm, dry. Skin tear right hand. Scattered old bruising. NEURO: Awake but not alert, confused and not able to follow commands. Moves all extremities well.. Course Course Emergency Course: Patient is still altered. Admit to hospitalist service. Neurology consulted. Patient has received IV Ativan, Valium, Keppra. Vital Signs Vital signs: Vital Signs Temperature 99.2 F 08/11/24 04:41 Temperature 97.7 F 08/11/24 15:15 Pulse Rate 81 08/11/24 16:00 Respiratory Rate 18 08/11/24 16:00 Blood Pressure 130/57 L 08/11/24 15:15 Pulse Oximetry 99 08/11/24 16:00 Oxygen Delivery Nasal Cannula 08/11/24 16:00 Oxygen Flow Rate 2 08/11/24 16:00 MDM - Seizure Lab Data 08/11/24 05:41 08/11/24 06:27 Labs: Lab Results 08/11/24 08/11/24 08/11/24 Range/Units 05:28 05:41 06:27 WBC 11.0 H (4.5-10.0) K/mm3 RBC 4.81 (4.2-5.4) M/mm3 Hgb 13.9 (12.0-15.0) g/dL Hct 43.3 (37.0-47.0) % MCV 90.0 (80-100) fl MCH 28.9 (26-34) pg MCHC 32.1 (32-36) g/dl RDW 13.8 (11.5-14.5) % Plt Count 275 (150-375) k/mm3 MPV 9.0 (7.4-10.4) fl Immature Gran % (Auto) 0.6 H (0-0.5) % Neut % (Auto) 75.3 H (45.5-73.1) % Lymph % (Auto) 14.8 L (18.3-44.2) % [place] % (Auto) 8.8 H (2.6-8.5) % Eos % (Auto) 0.0 (0-4.4) % Baso % (Auto) 0.5 (0.2-1.2) % Lymph # (Auto) 1.62 (0.9-3.2) K/mm3 [place] # (Auto) 1.0 H (0.1-0.6) K/mm3 Eos # (Auto) 0.0 (0-0.3) K/mm3 Baso # (Auto) 0.1 (0.0-0.1) K/mm3 Abs Immat Gran (auto) 0.07 H (0.00-0.031) K/mm3 Absolute Neuts (auto) 8.3 H (1.3-6.7) K/mm3 Absolute Nucleated RBC 0.000 (0.0-0.012) K/mm3 Nucleated RBC % 0.0 (0.0-0.2) % Sodium 139 (137-145) mmol/L Potassium 4.2 (3.4-5.0) mmol/L Chloride 105 (98-107) mmol/L Carbon Dioxide 24 (22-30) mmol/L Anion Gap 10 (4-12) mmol/L BUN 18 H (7-17) mg/dL Creatinine 0.68 L (0.7-1.0) mg/dL Estim Creat Clear Calc 50 ml/min Estimated GFR > 60 (59 - ) Glucose 169 H (65-110) mg/dL Lactic Acid 2.6 H (0.7-2.0) mmol/L Calcium 8.1 L (8.4-10.2) mg/dL Magnesium 1.6 (1.6-2.3) mg/dL Total Bilirubin 0.6 (0.2-1.3) mg/dL AST 28 (14-36) U/L ALT 21 (6-35) U/L Alkaline Phosphatase 144 H (38-126) U/L Total Protein 7.0 (6.3-8.2) g/dL Albumin 4.2 (3.5-5.1) g/dL Urine Color Yellow (Yellow) Urine Appearance Clear (Clear) Urine pH 6.5 (5.0-9.0) Ur Specific [place] 1.012 (1.001-1.035) Urine Protein 1+ H (Negative) mg/dL Urine Glucose (UA) Negative (Negative) mg/dL Urine Ketones Negative (Negative) mg/dL Ur Blood (Man) Negative (Negative) Urine Nitrate Negative (Negative) Urine Bilirubin Negative (Negative) Urine Urobilinogen 0.2 (<2.0) mg/dL Add Ur Microanalysis Reviewed Leukocyte Esterase Rfl Negative (Negative) YAMILETH/UL Urine RBC 0-2 (0-2) /hpf Urine WBC 0-5 (0-3) /hpf Ur Squamous Epith Cells None seen (Few) /hpf Urine Bacteria None seen /hpf Urine Casts 0-2 Lamotrigine Pending Influenza A (RT-PCR) Negative (Negative) Influenza B (RT-PCR) Negative (Negative) RSV (RT-PCR) Negative (Negative) SARS-CoV-2 RNA (RT-PCR) Negative (Negative) Imaging Data Radiologist's impression: ITS Impressions Chest X-Ray 08/11/24 06:49 Impression: Mild central congestive change. Possible COPD. Head CT 08/11/24 07:29 Impression: No intracranial hemorrhage, mass, or acute infarct. Atrophy and chronic white matter changes, as above. Cervical Spine CT 08/11/24 07:31 Impression: No acute fracture or acute subluxation. Stable 4 mm anterolisthesis of C4 over C5. Mild degenerative spondylosis. ECG Data EKG #1: ECG completion date: 08/11/24 ECG completion time: 04:59 EKG Interpretation: normal rate (98), sinus rhythm, non-specific ST changes, normal QRS, normal QT and NL axis Restraint Face to Face Eval ED Evaluation Findings Date Seen by EDP: 08/11/24 Time Seen by EDP: 07:34 Pt's immediate situation:: Altered, trying to role out of bed. Pt's reaction to intervention:: Will not follow verbal cues due to confusion Pt's med/behavioral condition:: Valium and soft restraints. Discharge Plan Discharge Clinical Impression: Acute alteration in mental status, Seizure Patient Disposition: Still a Patient Condition: Stable
[2024-08-11] MEDS: diazePAM INJ (*CRX) 10 MG/2 ML SYRINGE 5 MG IV PUSH (08:05)
[2024-08-11 08:45] LABS: Reflex Lactic Acid Yes or No Add Lactic
[2024-08-11 12:17] LABS: Lactic Acid 1.4 mmol/L (0.7-2.0)
--- NOTE | 2024-08-11 12:41 | PM.IMHP ---
H&P: HPI History of Present Illness Date/Time: 08/11/24 12:41 Chief Complaint: Seizure Narrative: 79 y/o F presents here with seizure with PMH of complex partial seizures, GERD, DM, HLD, ulcerative colitis, dementia, and hypertension. The patient presents here from [facility] via EMS for further evaluation after seizure. The patient has a past medical history of seizures, currently Lamictal. Taken off Vimpat last fall (2023). The following history was provided by the patient's daughter, this morning around 0400 she heard her mother's the bed alarm going off. Upon her arrival the patient was having a seizure. She described as some moaning/vocalization initially then developed coarse tremors/abnormal jerking more so in her upper limbs. The daughter states that her seizures are typically more like word soup and starring . She estimated that the seizure lasted for approximately 5-7 minutes. Per EMS report to the ED, the patient was postictal upon their arrival. She arrived to the emergency department responsive to pain only. Per daughter she was very combative in the ED requiring restraints and multiple doses of Ativan and ultimately Valium. The patient is currently somnolent. Daughter reports she did have short conversation with her, patient remained confused and speaking in very short sentences. Follows with neurology at [facility]. Last seizure was in Mar, did not require hospitalization and was observed in the ED and d/c'd. Has hx of dementia - baseline has trouble with dates, otherwise typically knows the year, place, names of all the staff at her facility she resides at etc. She has had some behavioral disturbances, worse in the evenings and will occasionally mistake her daughter for her mother. Initial VS at presentation: 99.2? F, HR 93, RR 20, 130/62, and 93% on RA. ED workup showed: WBC 11.0, creatinine 0.68 and GFR >60, glucose 169, lactic 2.6 (-> 1.4), and UA showed 1+ protein. Viral PCR negative. CXR showed mild central congestive changes and possible COPD. Head CT showed no intracranial hemorrhage, mass, or acute infarct and atrophy/chronic white matter changes. C-spine CT showed no acute fracture or acute subluxation, stable 4 mm anterolisthesis of C4 over C5, and mild degenerative spondylosis. Review of Systems Review of Systems: ROS unobtainable: Yes unobtainable due to mental status (A/O x0, somnolent) [facility] Past Medical History Medical History Diabetes Osteopenia Pseudogout of knee Dementia Complex partial seizures MCI (mild cognitive impairment) Deafness in right ear Gastroesophageal reflux disease Hyperlipidemia Ulcerative colitis Hypertension Surgical History Surgical History History of dilation and curettage History of hip surgery Left hip surgery. Family History Family History Mother Diabetes mellitus Hypertension Cancer Cerebrovascular accident Afib Father Cancer Social History Social History Social History: Lives in [place]. Nonsmoker. No alcohol or illicit substance use. 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 Surrogate decision maker: Aby Riley, daughter. Code status: Full code. Smoking status: Never smoker Second hand tobacco smoke exposure: Yes Alcohol intake: never Substance use: never Substance use type: does not use Do You Feel Safe in your Home?: No Lack of Transportation: No Lack of Food: Never True Current Housing: I Have Housing Concerned About Future Housing: No Difficulty Paying Gas/Electric Bills: No Difficulty Paying for Meds: No Currently Unemployed: No Education: Bachelor's Degree Difficulty w/ Childcare or Family Care: No Spiritual care concerns: No Meds Home Medications and Allergies Home Medications ?Medication ?Instructions ?Recorded ?Confirmed ?Type amlodipine 5 mg tablet 5 mg PO DAILY 08/18/21 08/11/24 History mesalamine 0.375 gram 0.75 g PO Q12H 08/18/21 08/11/24 History capsule,extended release 24 hr metoprolol tartrate 50 mg tablet 50 mg PO Q12H 08/18/21 08/11/24 History pantoprazole 40 mg tablet,delayed 40 mg PO HS 08/18/21 08/11/24 History release ferrous sulfate 324 mg (65 mg 324 mg PO DAILY 06/03/23 08/11/24 History iron) tablet,delayed release metformin 750 mg tablet,extended 750 mg PO DAILY 06/03/23 08/11/24 History release 24 hr vedolizumab 300 mg IV PUSH DIRECTED 06/03/23 08/11/24 History aspirin 81 mg capsule 81 mg PO QAM 03/20/24 08/11/24 History losartan 100 mg tablet 100 mg PO HS 03/20/24 08/11/24 History pravastatin 40 mg tablet 80 mg PO HS 03/20/24 08/11/24 History rivastigmine 4.6 mg/24 hour 4.6 mg topical HS 03/20/24 08/11/24 History transdermal patch acetaminophen 650 mg 650 mg PO Q8H PRN pain #20 tabs 06/08/24 08/11/24 Rx tablet,extended release calcium 315 mg (as 1 tablet PO DAILY 08/11/24 08/11/24 History citrate)-vitamin D3 5 mcg (200 unit) tablet (Calcium Citrate + D) lamotrigine 200 mg tablet 200 mg PO Q12H 08/11/24 08/11/24 History Allergies Allergy/AdvReac Type Severity Reaction Status Date / Time Penicillins Allergy Rash Verified 08/11/24 13:35 Vital Signs Vital Signs - 24 hr 08/11/24 04:41 08/11/24 04:51 08/11/24 04:52 Temperature 99.2 F Pulse Rate 93 Respiratory Rate Blood Pressure Pulse Oximetry 93 Oxygen Delivery Room Air Oxygen Flow Rate 08/11/24 04:52 08/11/24 04:53 08/11/24 05:11 Temperature Pulse Rate 85 Respiratory Rate 20 Blood Pressure 130/62 Pulse Oximetry 93 93 93 Oxygen Delivery Room Air Room Air Oxygen Flow Rate 08/11/24 06:35 08/11/24 06:39 08/11/24 06:43 Temperature 97.8 F 99 F Pulse Rate 90 87 Respiratory Rate 24 H 22 H Blood Pressure 167/85 H 167/85 H Pulse Oximetry 93 93 94 Oxygen Delivery Nasal Cannula Oxygen Flow Rate 2 08/11/24 06:44 08/11/24 06:44 08/11/24 07:14 Temperature 99 F 99 F Pulse Rate 90 90 78 Respiratory Rate 22 H 21 H 19 Blood Pressure 167/85 H 167/85 H 121/56 L Pulse Oximetry 96 94 97 Oxygen Delivery Oxygen Flow Rate 08/11/24 07:22 08/11/24 07:29 08/11/24 07:58 Temperature Pulse Rate 79 78 93 Respiratory Rate 17 20 20 Blood Pressure 121/56 L 121/56 L 156/74 H Pulse Oximetry 97 97 97 Oxygen Delivery Oxygen Flow Rate 08/11/24 08:13 08/11/24 08:22 08/11/24 08:28 Temperature Pulse Rate 92 95 90 Respiratory Rate 20 20 19 Blood Pressure 128/79 128/79 128/79 Pulse Oximetry 98 98 97 Oxygen Delivery Oxygen Flow Rate 08/11/24 08:29 08/11/24 08:43 08/11/24 08:58 Temperature Pulse Rate 90 92 94 Respiratory Rate 19 18 20 Blood Pressure 128/79 151/80 H 151/80 H Pulse Oximetry 97 97 96 Oxygen Delivery Oxygen Flow Rate 08/11/24 09:13 08/11/24 09:20 08/11/24 09:29 Temperature Pulse Rate 89 90 84 Respiratory Rate 18 20 20 Blood Pressure 183/99 H 183/99 H 124/66 Pulse Oximetry 96 95 96 Oxygen Delivery Oxygen Flow Rate 08/11/24 10:13 08/11/24 11:10 08/11/24 11:13 Temperature Pulse Rate 85 70 75 Respiratory Rate 18 17 18 Blood Pressure 159/66 H 120/60 120/60 Pulse Oximetry 97 97 97 Oxygen Delivery Oxygen Flow Rate 08/11/24 12:01 Temperature Pulse Rate 70 Respiratory Rate 18 Blood Pressure 122/59 L Pulse Oximetry 98 Oxygen Delivery Oxygen Flow Rate Exam Const: General: comfortable and no acute distress Other: , female, elderly HENMT: Face/Nose/Sinus: Normal nares present Mouth: Yes moist mucous membranes Other: Bruising to tip of the tongue, no active bleeding Eyes: Other: Pinpoint pupil on the right, pupil 4-5 on the left (history of detached retina) Resp: Effort & Inspection: normal respiratory effort Auscultation: clear to auscultation bilaterally Cardio: Rate: regular rate Rhythm: regular rhythm Other: S1-S2 present without murmur, rub, ectopy GI: Other: Abdomen soft, nondistended, nontender. Skin: General skin exam: normal color and no rashes or lesions noted Other: Scattered ecchymosis to bilateral forearms in very stages of healing. Neuro: Other: Patient very somnolent, unable to sustain wakefulness. No spontaneous eye opening. Attempted to provide verbal responses that are muffled intermittently. Does follow simple commands (hand polishing machine tender, pedal pushes). Moving all extremities, very weak and no asymmetry in strength noted. Extrem: General: normal to inspection Psych: Other: Unable to assess H&P: Results Labs Labs: Short CBC 08/11/24 Range/Units 05:41 WBC 11.0 H (4.5-10.0) K/mm3 Hgb 13.9 (12.0-15.0) g/dL Hct 43.3 (37.0-47.0) % Plt Count 275 (150-375) k/mm3 BMP 08/11/24 06:27 Sodium 139 Potassium 4.2 Chloride 105 Carbon Dioxide 24 BUN 18 H Creatinine 0.68 L Glucose 169 H Calcium 8.1 L Liver Function 08/11/24 Range/Units 06:27 Total Bilirubin 0.6 (0.2-1.3) mg/dL AST 28 (14-36) U/L ALT 21 (6-35) U/L Alkaline Phosphatase 144 H (38-126) U/L Albumin 4.2 (3.5-5.1) g/dL Urine 08/11/24 Range/Units 05:41 Urine Color Yellow (Yellow) Urine Appearance Clear (Clear) Urine pH 6.5 (5.0-9.0) Ur Specific [place] 1.012 (1.001-1.035) Urine Protein 1+ H (Negative) mg/dL Urine Glucose (UA) Negative (Negative) mg/dL Assessment and Plan Assessment and plan (1) Epilepsy: Qualifiers: Epilepsy type: partial symptomatic Intractability: not intractable Partial seizure type: with complex partial seizures Status epilepticus: without status epilepticus Qualified Code(s): G40.209 - Localization-related (focal) (partial) symptomatic epilepsy and epileptic syndromes with complex partial seizures, not intractable, without status epilepticus Code(s): G40.909 - Epilepsy, unspecified, not intractable, without status epilepticus Status: Acute Assessment and Plan: - Head CT: No intracranial hemorrhage, mass, or acute infarct. Atrophy and chronic white matter changes, as above. - seizure and fall precautions - Lamictal level pending - neurology consulted, awaiting formal recs - viral pcr negative, UA negative, CXR negative for indicators of infection - neurological checks Q4H - continue Lamictal 200 mg b.i.d. (2) Diabetes: Qualifiers: Diabetes mellitus type: type 2 Diabetes mellitus half-way insulin use: without manager intermediate use Diabetes mellitus complication status: without complication Qualified Code(s): E11.9 - Type 2 diabetes mellitus without complications Code(s): E11.9 - Type 2 diabetes mellitus without complications Status: Acute Assessment and Plan: - hypoglycemia protocol - POC blood glucose ACHS - home medication: hold metformin - correct regimen ordered - moderate dose TIDWM - A1C 5.7% on 05/2023 (3) Hypertension: Qualifiers: Hypertension type: primary hypertension Qualified Code(s): I10 - Essential (primary) hypertension Code(s): I10 - Essential (primary) hypertension Status: Chronic Assessment and Plan: - chronic, currently 121/59 - continue home medications: Amlodipine 5 mg daily, metoprolol 50 mg b.i.d. - monitor Plan Diet: Heart healthy GI Prophylaxis: Not currently indicated DVT Prophylaxis: SCDs Lines: Peripheral Code Status: Full code Quality VTE Prophylaxis VTE prophylaxis: mechanical ordered Hospitalist [facility] Advance Care Plan I have confirmed that the patient's Advanced Care Plan is present, code status is documented, or surrogate decision maker is listed in patient medical record.: Yes Medication Reconciliation I have utilized all available resources to obtain, update and review the patients current medications (includes all prescriptions, OTC, herbals, cannabis, and nutritional supplements).: Yes
--- NOTE | 2024-08-11 13:39 | ADMGEN ---
This patient, Lisa Allen, was admitted to IMU Room 204-01. Patient/family oriented to hospital policies and general routines including ID bracelet, bed and alarms, visiting hours, pain management, procedures, bathroom and other care routines, personal items, smoking policy, room service/diet, and visiting hours. Information on how to activate the Rapid Response Team has been discussed. Patient/Family are encouraged to report perceived risks to care and to ask questions if they do not understand what they are told or what they should do.
[2024-08-11 14:32] LABS: Glucose Point of Care 130 mg/dl (65-105)
[2024-08-11 17:53] LABS: Glucose Point of Care 124 mg/dl (65-105)
--- NOTE | 2024-08-11 18:05 | PHAR ---
PT'S HOME MED MESALAMINE ER 0.375 GM VERIFIED BY PHARMACY ID: CAPSULE, BLUE, OBLONG. MARKINGS: MES 375 PT ONLY BROUGHT 2 CAPSULES, TOLD RN TO SEND ADDITIONAL CAPSULES WHEN THEY BECOME AVAILABLE. PILLS ARE IN A DOSEPAK EACH IS CLEARLY IDENTIFIABLE
[2024-08-11] MEDS: PRAVASTATIN SODIUM 20 MG TABLET 80 MG PO (20:35)
[2024-08-11] MEDS: LOSARTAN POTASSIUM 100 MG TABLET PO (20:35)
[2024-08-11] MEDS: lamoTRIgine 100 MG TABLET 200 MG PO (20:35)
[2024-08-11] MEDS: PANTOPRAZOLE 40 MG TABLET PO (20:35)
[2024-08-11] MEDS: METOPROLOL TARTRATE 50 MG TAB PO (20:35)
[2024-08-11] MEDS: RIVASTIGMINE TARTRATE 4.6 MG PATCH 1 PATCH TRANSDERM (20:36)
[2024-08-11] MEDS: MESALAMINE 0.375 GM 2 EACH PO (20:37)
[2024-08-12] VITALS (20 sets, daily range): BP systolic 120–148; BP diastolic 54–67; PULSE 61–77; RESP 16–24; TEMP 36.3–36.9; O2SAT 95–100
[2024-08-12 01:33] LABS: Glucose Point of Care 110 mg/dl (65-105)
[2024-08-12 04:55] LABS: Basophils Absolute Auto 0.1 K/mm3 (0.0-0.1); Basophils Percent Auto 0.7 % (0.2-1.2); Hematocrit 42.7 % (37.0-47.0); Hemoglobin 13.6 g/dL (12.0-15.0); Immature Granulocyte Absolute 0.04 K/mm3 (0.00-0.031); Immature Granulocyte Percent A 0.4 % (0-0.5); Lymphocytes Absolute Auto 1.95 K/mm3 (0.9-3.2); Lymphocytes Percent Auto 20.6 % (18.3-44.2); Mean Corpuscular HGB Conc 31.9 g/dl (32-36); Mean Corpuscular Hemoglobin 29.2 pg (26-34); Mean Corpuscular Volume 91.6 fl (80-100); Mean Platelet Volume 9.3 fl (7.4-10.4); Monocytes Absolute Auto 1.1 K/mm3 (0.1-0.6); Monocytes Percent Auto 11.3 % (2.6-8.5); Neutrophils Absolute Auto 6.3 K/mm3 (1.3-6.7); Platelet Count Result 224 k/mm3 (150-375); Red Blood Count 4.66 M/mm3 (4.2-5.4); White Blood Count 9.5 K/mm3 (4.5-10.0)
[2024-08-12 04:57] LABS: Hemoglobin A1C 6.5 % (<5.7)
[2024-08-12 05:01] LABS: Anion Gap 4 mmol/L (4-12); Blood Urea Nitrogen 16 mg/dL (7-17); Calcium 8.5 mg/dL (8.4-10.2); Carbon Dioxide 29 mmol/L (22-30); Chloride 105 mmol/L (98-107); Estimated CRCL calculation 55 ml/min; Estimated Glomerular Filt Rate > 60; Glucose 107 mg/dL (65-110); Potassium 3.5 mmol/L (3.4-5.0); Sodium 138 mmol/L (137-145)
[2024-08-12 06:05] LABS: Glucose Point of Care 120 mg/dl (65-105)
[2024-08-12] MEDS: amLODIPine BESYLATE 5 MG TABLET PO (09:23)
[2024-08-12] MEDS: METOPROLOL TARTRATE 50 MG TAB PO ×2 (09:23→20:51)
[2024-08-12] MEDS: FERROUS SULFATE 325 MG TABLET DR 324 MG BY MOUTH (09:24)
[2024-08-12] MEDS: lamoTRIgine 100 MG TABLET 200 MG PO ×2 (09:24→20:51)
[2024-08-12] MEDS: ASPIRIN 81 MG CHEWABLE TABLET PO (09:24)
[2024-08-12] MEDS: CALCIUM CITRATE 315 MG/VITAMIN D 6.25 MCG (250 UNITS) TAB 1 TABLET PO (09:25)
[2024-08-12 11:58] LABS: Glucose Point of Care 115 mg/dl (65-105)
--- NOTE | 2024-08-12 12:29 | P.CONNEU_ITS ---
Assessment and Plan Assessment and plan (1) Complex partial seizures: Code(s): G40.209 - Localization-related (focal) (partial) symptomatic epilepsy and epileptic syndromes with complex partial seizures, not intractable, without status epilepticus Status: Acute (2) Dementia of the Alzheimer's type: Code(s): G30.9 - Alzheimer's disease, unspecified; F02.80 - Dementia in other diseases classified elsewhere, unspecified severity, without behavioral disturbance, psychotic disturbance, mood disturbance, and anxiety Status: Acute (3) Diabetes: Qualifiers: Diabetes mellitus type: type 2 Diabetes mellitus detention insulin use: without intermediate school teacher use Diabetes mellitus complication status: without complication Qualified Code(s): E11.9 - Type 2 diabetes mellitus without complications Code(s): E11.9 - Type 2 diabetes mellitus without complications Status: Acute (4) Hypertension: Qualifiers: Hypertension type: primary hypertension Qualified Code(s): I10 - Essential (primary) hypertension Code(s): I10 - Essential (primary) hypertension Status: Chronic Plan we have the option to increase the dose of Lamictal to 400 50 mg a day however I spoke to her granddaughter to check with her neurologist in [facility] if they would like to do so or otherwise add another drug. She was given a extra dose of the Keppra 1500 mg in the emergency room last night since he came with postictal state. I also explained to her that nearly all anti convulsants can cause some degree of dizziness and after period of time most patients may adapt to it but this needs to be watched for. the dose and timing of the medication may need to be adjusted based upon the 10 rinse. I shall be glad to help . Consult date: 08/12/24 HPI: Lisa Allen is a 79 year old female with history of seizure disorder and dementia was seen for neurological evaluation. She was admitted to the hospital with seizure-like spell. She is currently on Lamictal 200 mg twice a day. She was previously seen by me last year at which time she was on lacosamide 200 mg a day and Lamictal 300 mg a day. She was seen at [facility] where she was taken off lacosamide. According to her granddaughter who I spoke to over the phone this was because he was feeling dizzy. The dose of Lamictal was increased to 400 mg a day. She is currently and assisted living. Patient also has history of diabetes mellitus and hypertension and these have been under control no history of recent febrile illness. Review of Systems 2 Review of Systems: All systems reviewed & are unremarkable except as noted in HPI and below PMFSH Past Medical History Medical History (Updated 08/12/24 @ 12:34 by Ailyn Hernandez MD) Dementia of the Alzheimer's type Diabetes Osteopenia Pseudogout of knee Dementia Complex partial seizures MCI (mild cognitive impairment) Deafness in right ear Gastroesophageal reflux disease Hyperlipidemia Ulcerative colitis Hypertension Surgical History Surgical History History of dilation and curettage History of hip surgery Left hip surgery. Family History Family History Mother Diabetes mellitus Hypertension Cancer Cerebrovascular accident Afib Father Cancer Social History Social History Social History: Lives in [place]. Nonsmoker. No alcohol or illicit substance use. 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 Surrogate decision maker: Aby Riley, daughter. Code status: Full code. Smoking status: Never smoker Second hand tobacco smoke exposure: Yes Alcohol intake: never Substance use: never Substance use type: does not use Do You Feel Safe in your Home?: No Lack of Transportation: No Lack of Food: Never True Current Housing: I Have Housing Concerned About Future Housing: No Difficulty Paying Gas/Electric Bills: No Difficulty Paying for Meds: No Currently Unemployed: No Education: Bachelor's Degree Difficulty w/ Childcare or Family Care: No Spiritual care concerns: No Meds Home Medications and Allergies Home Medications ?Medication ?Instructions ?Recorded ?Confirmed ?Type amlodipine 5 mg tablet 5 mg PO DAILY 08/18/21 08/11/24 History mesalamine 0.375 gram 0.75 g PO Q12H 08/18/21 08/11/24 History capsule,extended release 24 hr metoprolol tartrate 50 mg tablet 50 mg PO Q12H 08/18/21 08/11/24 History pantoprazole 40 mg tablet,delayed 40 mg PO HS 08/18/21 08/11/24 History release ferrous sulfate 324 mg (65 mg 324 mg PO DAILY 06/03/23 08/11/24 History iron) tablet,delayed release metformin 750 mg tablet,extended 750 mg PO DAILY 06/03/23 08/11/24 History release 24 hr vedolizumab 300 mg IV PUSH DIRECTED 06/03/23 08/11/24 History aspirin 81 mg capsule 81 mg PO QAM 03/20/24 08/11/24 History losartan 100 mg tablet 100 mg PO HS 03/20/24 08/11/24 History pravastatin 40 mg tablet 80 mg PO HS 03/20/24 08/11/24 History rivastigmine 4.6 mg/24 hour 4.6 mg topical HS 03/20/24 08/11/24 History transdermal patch acetaminophen 650 mg 650 mg PO Q8H PRN pain #20 tabs 06/08/24 08/11/24 Rx tablet,extended release calcium 315 mg (as 1 tablet PO DAILY 08/11/24 08/11/24 History citrate)-vitamin D3 5 mcg (200 unit) tablet (Calcium Citrate + D) lamotrigine 200 mg tablet 200 mg PO Q12H 08/11/24 08/11/24 History Allergies Allergy/AdvReac Type Severity Reaction Status Date / Time Penicillins Allergy Rash Verified 08/11/24 13:35 Vital Signs Vital Signs - 24 hr 08/11/24 12:44 08/11/24 13:02 08/11/24 13:05 Temperature 98.6 F Pulse Rate 75 79 79 Respiratory Rate 16 21 H 21 H Blood Pressure 121/59 L 159/61 H Pulse Oximetry 98 100 100 Oxygen Delivery Nasal Cannula Oxygen Flow Rate 2 08/11/24 13:05 08/11/24 14:00 08/11/24 15:15 Temperature 97.7 F Pulse Rate 81 74 68 Respiratory Rate 18 Blood Pressure 130/57 L Pulse Oximetry 99 Oxygen Delivery Oxygen Flow Rate 08/11/24 16:00 08/11/24 16:00 08/11/24 18:00 Temperature Pulse Rate 68 81 68 Respiratory Rate 18 Blood Pressure Pulse Oximetry 99 Oxygen Delivery Nasal Cannula Oxygen Flow Rate 2 08/11/24 19:48 08/11/24 20:00 08/11/24 20:00 Temperature 97.9 F Pulse Rate 78 100 Respiratory Rate 16 Blood Pressure 143/65 H Pulse Oximetry 100 100 Oxygen Delivery Nasal Cannula Oxygen Flow Rate 2 08/11/24 20:35 08/11/24 22:00 08/12/24 00:00 Temperature Pulse Rate 99 72 Respiratory Rate Blood Pressure Pulse Oximetry 100 Oxygen Delivery Nasal Cannula Oxygen Flow Rate 2 08/12/24 00:00 08/12/24 01:31 08/12/24 02:00 Temperature 98.0 F Pulse Rate 69 63 61 Respiratory Rate 18 Blood Pressure 145/56 H Pulse Oximetry 100 Oxygen Delivery Oxygen Flow Rate 08/12/24 04:00 08/12/24 04:00 08/12/24 04:19 Temperature 97.8 F Pulse Rate 62 72 Respiratory Rate 20 Blood Pressure 148/67 H Pulse Oximetry 96 96 Oxygen Delivery Nasal Cannula Oxygen Flow Rate 2 08/12/24 06:00 08/12/24 08:00 08/12/24 08:00 Temperature 97.3 F L Pulse Rate 67 66 Respiratory Rate 16 Blood Pressure 128/63 Pulse Oximetry 99 Oxygen Delivery Room Air Oxygen Flow Rate 08/12/24 08:00 08/12/24 09:23 08/12/24 10:00 Temperature Pulse Rate 67 76 69 Respiratory Rate Blood Pressure Pulse Oximetry Oxygen Delivery Oxygen Flow Rate 08/12/24 11:54 08/12/24 12:00 Temperature 98.4 F Pulse Rate 70 Respiratory Rate 24 H Blood Pressure 133/62 Pulse Oximetry 96 Oxygen Delivery Room Air Oxygen Flow Rate Exam 2 Const: General: cooperative, well developed and alert Other: The patient appears to have mild cognitive impairment and some degree of perseveration and mild dementia HENMT: Head: atraumatic Mouth: Yes oropharynx normal Eyes: Alignment and Position: position normal Pupils: Equal, round and reactive pupils present EOM: EOMs intact bilaterally Neck: Neck: supple Resp: Effort & Inspection: normal respiratory effort Neuro: General: patient oriented x3 Cranial nerves: Yes CN's II-XII intact bilaterally, Yes facial sensation intact/muscles of mastication intact, Yes facial symmetry and Yes Midline tongue present Speech: normal speech Motor exam (neuro): 5/5 motor strength present throughout Coordination: f [id number] test normal Results Labs 08/12/24 04:23 08/12/24 04:22 Labs: Short CBC 08/12/24 Range/Units 04:23 WBC 9.5 (4.5-10.0) K/mm3 Hgb 13.6 (12.0-15.0) g/dL Hct 42.7 (37.0-47.0) % Plt Count 224 (150-375) k/mm3 BMP 08/12/24 04:22 Sodium 138 Potassium 3.5 Chloride 105 Carbon Dioxide 29 BUN 16 Creatinine 0.63 L Glucose 107 Calcium 8.5
--- NOTE | 2024-08-12 13:02 | PC.NURSE ---
Addendum entered by ASHER GLORIA 08/12/24 13:20: 1315- RN SPOKE WITH CHERISE BORREGO AT NEUROLOGY [facility]. THIS RN GAVE DR LORENZO PHONE NUMBER AND CHERISE STATED A FELLOW OF DR LUO WILL CALL DR LORENZO TODAY. DR LORENZO AWARE AND AGGREABLE. PATIENT AND FAMILY UPDATED. Original Note: VOICEMAIL LEFT WITH DR LUO OFFICE FROM [facility] [place] TO CONTACT RN FOR DR LORENZO CONTACT INFORMATION TO DISCUSS PATIENTS CASE AND MEDICATIONS. DR LUO OFFICE NUMBER IS [phone]
--- NOTE | 2024-08-12 15:08 | P.PNIM_ITS ---
Progress Note: A&P Assessment and Plan (1) Epilepsy: Qualifiers: Epilepsy type: partial symptomatic Partial seizure type: with complex partial seizures Intractability: not intractable Status epilepticus: without status epilepticus Qualified Code(s): G40.209 - Localization-related (focal) (partial) symptomatic epilepsy and epileptic syndromes with complex partial seizures, not intractable, without status epilepticus Code(s): G40.909 - Epilepsy, unspecified, not intractable, without status epilepticus Status: Acute Assessment and Plan: patient with recurrent seizures initial onset about 2 years prior but is had been getting worse for the last 6 months * Head CT: No intracranial hemorrhage, mass, or acute infarct. Atrophy and chronic white matter changes, as above. * seizure and fall precautions * Lamictal level pending last level 9.6 at [place] * neurology consulted, awaiting formal recs * viral pcr negative, UA negative, CXR negative for indicators of infection * neurological checks Q4H * continue Lamictal 200 mg b.i.d. * MRI pending /SARAH from 2022: A few foci of susceptibility artifact at the bilateral thalami and with typical pattern for chronic microhemorrhage in the setting of hypertension/ Age-related changes including mild diffuse volume loss and moderate scattered nonspecific white matter T2 hyperintensity consistent with chronic small vessel ischemic disease. * TSH pending * Ativan PRN for seizure activity * Cardiac monitoring * Patient had previous holter monitor for 1 month with no findings (2) Diabetes: Qualifiers: Diabetes mellitus type: type 2 Diabetes mellitus mcfp insulin use: without spanish teacher use Diabetes mellitus complication status: without complication Qualified Code(s): E11.9 - Type 2 diabetes mellitus without complications Code(s): E11.9 - Type 2 diabetes mellitus without complications Status: Acute Assessment and Plan: * hypoglycemia protocol * POC blood glucose ACHS * home medication: hold metformin * SSI moderate dose TIDWM * A1C 6.5 (3) Hypertension: Qualifiers: Hypertension type: primary hypertension Qualified Code(s): I10 - Essential (primary) hypertension Code(s): I10 - Essential (primary) hypertension Status: Chronic Assessment and Plan: * chronic, currently 121/59 * continue home medications: Amlodipine 5 mg daily, metoprolol 50 mg b.i.d. * monitor Plan Code status: Full code per patient DVT prophylaxis: SCD's Stress ulcer prophylaxis: PT/OT notes: PT/OT pending Disposition: patient continues admission to the medical unit for recurrent seizure and postictal state. patient to be seen by Neurology and MRI brain pending. Will have PT OT evaluate patient in the a.m. plan to return back to her assisted living facility when medically stable. Time Spent With Patient Time with patient: 15 - 25 minutes Subjective Date/time seen: 08/12/24 15:08 Interval history: patient is 79-year-old female who was admitted for further evaluation and treatment after a seizure and postictal state. patient has been having recurrent seizures since February typically follows with Neurology at [place] however seizures are becoming more frequent per daughter at bedside. 08/12/2024: Assumed Care Patient alert and answering question appropriately but still lethargic no fu rther seizure events overnight. Patient denies any chest pain, shortness a breath in nausea, vomiting, dizziness. daughter is at bedside updated plan for our neurologist to speak with patient's neurologist at [place]. Past MRI showing micro hemorrhaging will get follow-up MRI and Lamictal level Review of Systems Review of Systems: All systems reviewed & are unremarkable except as noted in HPI and below Exam Narrative: * GENERAL: Alert and oriented x 3, lethargic pleasant female . No acute distress. Daughter at bedside * EYES: EOMI. No scleral icterus. PERRLA. * HEENT: Moist mucous membranes. * LUNGS: Clear to auscultation bilaterally. No accessory muscle use. * CARDIOVASCULAR: Regular rate and rhythm. No murmur. No JVD. S1-S2 * ABDOMEN: Soft, non tenderness and non-distended. No palpable masses. * EXTREMITIES: No edema. Non-tender * SKIN: No rashes or lesions. Skin warm, dry. * NEUROLOGIC: No focal neurological deficits. CN II-XII grossly intact * PSYCHIATRIC: Appropriate mood and affect. Good judgement and insight. Objective Data Vital Signs Vital Signs: Vital Signs - 24 hr 08/11/24 15:15 08/11/24 16:00 08/11/24 16:00 Temperature 97.7 F Pulse Rate 68 68 81 Respiratory Rate 18 18 Blood Pressure 130/57 L Pulse Oximetry 99 99 Oxygen Delivery Nasal Cannula Oxygen Flow Rate 2 08/11/24 18:00 08/11/24 19:48 08/11/24 20:00 Temperature 97.9 F Pulse Rate 68 78 Respiratory Rate 16 Blood Pressure 143/65 H Pulse Oximetry 100 100 Oxygen Delivery Nasal Cannula Oxygen Flow Rate 2 08/11/24 20:00 08/11/24 20:35 08/11/24 22:00 Temperature Pulse Rate 100 99 72 Respiratory Rate Blood Pressure Pulse Oximetry Oxygen Delivery Oxygen Flow Rate 08/12/24 00:00 08/12/24 00:00 08/12/24 01:31 Temperature 98.0 F Pulse Rate 69 63 Respiratory Rate 18 Blood Pressure 145/56 H Pulse Oximetry 100 100 Oxygen Delivery Nasal Cannula Oxygen Flow Rate 2 08/12/24 02:00 08/12/24 04:00 08/12/24 04:00 Temperature Pulse Rate 61 62 Respiratory Rate Blood Pressure Pulse Oximetry 96 Oxygen Delivery Nasal Cannula Oxygen Flow Rate 2 08/12/24 04:19 08/12/24 06:00 08/12/24 08:00 Temperature 97.8 F 97.3 F L Pulse Rate 72 67 66 Respiratory Rate 20 16 Blood Pressure 148/67 H 128/63 Pulse Oximetry 96 99 Oxygen Delivery Oxygen Flow Rate 08/12/24 08:00 08/12/24 08:00 08/12/24 09:23 Temperature Pulse Rate 67 76 Respiratory Rate Blood Pressure Pulse Oximetry Oxygen Delivery Room Air Oxygen Flow Rate 08/12/24 10:00 08/12/24 11:54 08/12/24 12:00 Temperature 98.4 F Pulse Rate 69 70 Respiratory Rate 24 H Blood Pressure 133/62 Pulse Oximetry 96 Oxygen Delivery Room Air Oxygen Flow Rate 08/12/24 12:00 08/12/24 14:00 Temperature Pulse Rate 70 72 Respiratory Rate Blood Pressure Pulse Oximetry Oxygen Delivery Oxygen Flow Rate Intake/Output Intake/Output: Intake & Output 08/09/24 08/10/24 08/11/24 08/12/24 23:59 23:59 23:59 23:59 Intake Total 1100 Output Total 250 250 Balance 850 -250 Meds/Results Medications: Active Medications Generic Name Dose Route Start Last Admin Trade Name Freq PRN Reason Stop Dose Admin Acetaminophen 650 mg 08/11/24 10:12 Acetaminophen 325 Mg Tablet PO Q4H PRN Mild Pain (1-3) or Fever Hydrocodone Bitart/Acetaminophen 1 tab 08/11/24 10:12 Hydrocodone/Acetaminophen (*Crx) 5-325 Mg Tablet PO Q4H PRN Pain Rated 4-6 Amlodipine Besylate 5 mg 08/12/24 09:00 08/12/24 09:23 Amlodipine Besylate 5 Mg Tablet PO 5 mg DAILY AMY Administration Aspirin 81 mg 08/12/24 08:00 08/12/24 09:24 Aspirin 81 Mg Chewable Tablet PO 81 mg DAILY@0800 AMY Administration Calcium Citrate 1 tablet 08/12/24 09:00 08/12/24 09:25 Calcium Citrate 315 Mg/Vitamin D 6.25 Mcg (250 Units) Tab PO 1 tablet DAILY AMY Administration Dextrose 12.5 gm 08/11/24 14:19 Dextrose 50% 25 Gm/50 Ml Syringe IV PUSH PRN PRN Hypoglycemia Protocol Ferrous Sulfate 324 mg 08/12/24 09:00 08/12/24 09:24 Ferrous Sulfate [address] BY MOUTH 324 mg DAILY AMY Administration Glucagon 1 mg 08/11/24 14:19 Glucagon For Inj 1 Mg Vial IM PRN PRN Hypoglycemia Protocol Glucose 15 gm 08/11/24 14:19 Glucose Oral Gel 15 Gm Of Glucse In 37.5 Gm Tube PO PRN PRN Hypoglycemia Protocol Dextrose 1,000 mls @ 100 mls/hr 08/11/24 14:19 Dextrose 5% 1,000 Ml IVPB PRN PRN Hypoglycemia Protocol Insulin Aspart 3 - 6 units 08/11/24 18:00 08/12/24 14:51 Insulin Aspart (*Bkc) 100 Units/Ml SUB-Q Not Given Q6HR [facility] Protocol Lamotrigine 200 mg 08/11/24 21:00 08/12/24 09:24 Lamotrigine 100 Mg Tablet PO 200 mg Q12HR AMY Administration Lorazepam 2 mg 08/11/24 15:07 Lorazepam Inj (*Crx) 2 Mg/Ml Vial IV PUSH ONCE PRN seizure lasting >2 mins Losartan Potassium 100 mg 08/11/24 21:00 08/11/24 20:35 Losartan Potassium 100 Mg Tablet PO 100 mg HS AMY Administration Metoprolol Tartrate 50 mg 08/11/24 21:00 08/12/24 09:23 Metoprolol Tartrate 50 Mg Tab PO 50 mg Q12HR AMY Administration Non-Formulary ( 2 each 08/11/24 21:00 08/12/24 14:51 Mesalamine 0.375 PO 09/10/24 20:59 Not Given Gram Oral Capsule, Q12HR AMY Er 24 Hr) Ondansetron HCl 4 mg 08/11/24 10:12 Ondansetron Inj 4 Mg/2 Ml Vial IV PUSH Q4H PRN Nausea Pantoprazole Sodium 40 mg 08/11/24 21:00 08/11/24 20:35 Pantoprazole 40 Mg Tablet PO 40 mg HS AMY Administration Pravastatin Sodium 80 mg 08/11/24 21:00 08/11/24 20:35 Pravastatin Sodium 20 Mg Tablet PO 80 mg HS AMY Administration Rivastigmine 1 patch 08/11/24 21:00 08/11/24 20:36 Rivastigmine Tartrate 4.6 Mg Patch TRANSDERM 1 patch HS AMY Administration Radiology Results: ITS Impressions Chest X-Ray 08/11/24 06:49 Impression: Mild central congestive change. Possible COPD. Head CT 08/11/24 07:29 Impression: No intracranial hemorrhage, mass, or acute infarct. Atrophy and chronic white matter changes, as above. Cervical Spine CT 08/11/24 07:31 Impression: No acute fracture or acute subluxation. Stable 4 mm anterolisthesis of C4 over C5. Mild degenerative spondylosis. Labs Labs: Laboratory Results - last 24 hr 08/11/24 08/12/24 08/12/24 17:07 01:27 04:18 WBC RBC Hgb Hct MCV MCH MCHC RDW Plt Count MPV Immature Gran % (Auto) Neut % (Auto) Lymph % (Auto) [place] % (Auto) Eos % (Auto) Baso % (Auto) Lymph # (Auto) [place] # (Auto) Eos # (Auto) Baso # (Auto) Abs Immat Gran (auto) Absolute Neuts (auto) Absolute Nucleated RBC Nucleated RBC % Sodium Potassium Chloride Carbon Dioxide Anion Gap BUN Creatinine Estim Creat Clear Calc Estimated GFR Glucose POC Capillary Glucose 124 H 110 H Hemoglobin A1c Calcium TSH 0.500 08/12/24 08/12/24 08/12/24 04:22 04:23 05:58 WBC 9.5 RBC 4.66 Hgb 13.6 Hct 42.7 MCV 91.6 MCH 29.2 MCHC 31.9 L RDW 14.0 Plt Count 224 MPV 9.3 Immature Gran % (Auto) 0.4 Neut % (Auto) 67.0 Lymph % (Auto) 20.6 [place] % (Auto) 11.3 H Eos % (Auto) 0.0 Baso % (Auto) 0.7 Lymph # (Auto) 1.95 [place] # (Auto) 1.1 H Eos # (Auto) 0.0 Baso # (Auto) 0.1 Abs Immat Gran (auto) 0.04 H Absolute Neuts (auto) 6.3 Absolute Nucleated RBC 0.000 Nucleated RBC % 0.0 Sodium 138 Potassium 3.5 Chloride 105 Carbon Dioxide 29 Anion Gap 4 BUN 16 Creatinine 0.63 L Estim Creat Clear Calc 55 Estimated GFR > 60 Glucose 107 POC Capillary Glucose 120 H Hemoglobin A1c 6.5 H Calcium 8.5 TSH 08/12/24 11:30 WBC RBC Hgb Hct MCV MCH MCHC RDW Plt Count MPV Immature Gran % (Auto) Neut % (Auto) Lymph % (Auto) [place] % (Auto) Eos % (Auto) Baso % (Auto) Lymph # (Auto) [place] # (Auto) Eos # (Auto) Baso # (Auto) Abs Immat Gran (auto) Absolute Neuts (auto) Absolute Nucleated RBC Nucleated RBC % Sodium Potassium Chloride Carbon Dioxide Anion Gap BUN Creatinine Estim Creat Clear Calc Estimated GFR Glucose POC Capillary Glucose 115 H Hemoglobin A1c Calcium TSH Quality VTE Prophylaxis VTE prophylaxis: mechanical ordered -Patient's previous records reviewed on admission -ER notes reviewed in detail on admission -discussed all findings and current treatment plan with patient/Family/POA -Consultations reviewed for recommendations -Patient's disposition for safe discharge discussed with leather case finisher Dictation performed by [employer] direct speech recognition software, therefore silver wrapper variants and typographical errors may occur. Hospitalist [facility] Advance Care Plan I have confirmed that the patient's Advanced Care Plan is present, code status is documented, or surrogate decision maker is listed in patient medical record.: Yes Medication Reconciliation I have utilized all available resources to obtain, update and review the patients current medications (includes all prescriptions, OTC, herbals, cannabis, and nutritional supplements).: Yes The patient is not eligible for med reconciliation; the patient is in a emergent medical situation where delaying treatment would jeopardize the patients health. : No
[2024-08-12 18:35] LABS: Glucose Point of Care 182 mg/dl (65-105)
[2024-08-12] MEDS: PANTOPRAZOLE 40 MG TABLET PO (20:51)
[2024-08-12] MEDS: PRAVASTATIN SODIUM 20 MG TABLET 80 MG PO (20:51)
[2024-08-12] MEDS: MESALAMINE 0.375 GM 2 EACH PO (20:52)
[2024-08-12] MEDS: RIVASTIGMINE TARTRATE 4.6 MG PATCH 1 PATCH TRANSDERM (20:52)
[2024-08-12] MEDS: LOSARTAN POTASSIUM 100 MG TABLET PO (20:52)
[2024-08-13] VITALS (11 sets, daily range): BP systolic 122–145; BP diastolic 48–71; PULSE 64–78; RESP 16–18; TEMP 36.3–36.7; O2SAT 93–100
[2024-08-13 00:06] LABS: Glucose Point of Care 97 mg/dl (65-105)
[2024-08-13 05:06] LABS: Hematocrit 41.4 % (37.0-47.0); Hemoglobin 13.4 g/dL (12.0-15.0); Mean Corpuscular HGB Conc 32.4 g/dl (32-36); Mean Corpuscular Hemoglobin 29.2 pg (26-34); Mean Corpuscular Volume 90.2 fl (80-100); Mean Platelet Volume 9.3 fl (7.4-10.4); Platelet Count Result 242 k/mm3 (150-375); Red Blood Count 4.59 M/mm3 (4.2-5.4); Red Cell Distribution Width 13.8 % (11.5-14.5); White Blood Count 9.3 K/mm3 (4.5-10.0)
[2024-08-13 05:20] LABS: Alanine Aminotransferase 20 U/L (6-35); Albumin Level 3.6 g/dL (3.5-5.1); Alkaline Phosphatase 99 U/L (38-126); Anion Gap 7 mmol/L (4-12); Aspartate Amino Transferase 24 U/L (14-36); Bilirubin,Total 0.7 mg/dL (0.2-1.3); Blood Urea Nitrogen 20 mg/dL (7-17); Carbon Dioxide 28 mmol/L (22-30); Chloride 103 mmol/L (98-107); Estimated CRCL calculation 42 ml/min; Estimated Glomerular Filt Rate > 60; Glucose 112 mg/dL (65-110); Potassium 3.3 mmol/L (3.4-5.0); Sodium 138 mmol/L (137-145)
[2024-08-13 08:33] LABS: Glucose Point of Care 191 mg/dl (65-105)
[2024-08-13] MEDS: lamoTRIgine 100 MG TABLET 200 MG PO (09:36)
[2024-08-13] MEDS: METOPROLOL TARTRATE 50 MG TAB PO (09:36)
[2024-08-13] MEDS: MESALAMINE 0.375 GM 2 EACH PO (09:36)
[2024-08-13] MEDS: FERROUS SULFATE 325 MG TABLET DR 324 MG BY MOUTH (09:36)
[2024-08-13] MEDS: amLODIPine BESYLATE 5 MG TABLET PO (09:37)
[2024-08-13] MEDS: CALCIUM CITRATE 315 MG/VITAMIN D 6.25 MCG (250 UNITS) TAB 1 TABLET PO (09:37)
[2024-08-13] MEDS: ASPIRIN 81 MG CHEWABLE TABLET PO (09:37)
--- NOTE | 2024-08-13 14:01 | P.PNIM_ITS ---
Progress Note: A&P Assessment and Plan (1) Epilepsy: Qualifiers: Epilepsy type: partial symptomatic Partial seizure type: with complex partial seizures Intractability: not intractable Status epilepticus: without status epilepticus Qualified Code(s): G40.209 - Localization-related (focal) (partial) symptomatic epilepsy and epileptic syndromes with complex partial seizures, not intractable, without status epilepticus Code(s): G40.909 - Epilepsy, unspecified, not intractable, without status epilepticus Status: Acute Assessment and Plan: patient with recurrent seizures initial onset about 2 years prior but is had been getting worse for the last 6 months * Head CT: No intracranial hemorrhage, mass, or acute infarct. Atrophy and chronic white matter changes, as above. * seizure and fall precautions * Lamictal level pending last level 9.6 at [facility] * neurology consulted, awaiting formal recs * viral pcr negative, UA negative, CXR negative for indicators of infection * neurological checks Q4H * continue Lamictal 200 mg b.i.d. * MRI pending /SARAH from 2022: A few foci of susceptibility artifact at the bilateral thalami and with typical pattern for chronic microhemorrhage in the setting of hypertension/ Age-related changes including mild diffuse volume loss and moderate scattered nonspecific white matter T2 hyperintensity consistent with chronic small vessel ischemic disease. * TSH pending * Ativan PRN for seizure activity * Cardiac monitoring * Patient had previous holter monitor for 1 month with no findings 08/13/2024 * MRI: Numerous foci of susceptibility artifact consistent with sequela of chronic microhemorrhage in the bilateral thalami, basal ganglia, cerebral and cerebellar hemispheres which suggests sequela of either chronic hypertension or amyloid angiopathy. * Plan for inpatient at [facility] continuous EEG [address] Anthony * Still very weak PT evaluation pending (2) Diabetes: Qualifiers: Diabetes mellitus type: type 2 Diabetes mellitus computer terminal operator insulin use: without computer terminal operator use Diabetes mellitus complication status: without complication Qualified Code(s): E11.9 - Type 2 diabetes mellitus without complications Code(s): E11.9 - Type 2 diabetes mellitus without complications Status: Acute Assessment and Plan: * hypoglycemia protocol * POC blood glucose ACHS * home medication: hold metformin * SSI moderate dose TIDWM * A1C 6.5 (3) Hypertension: Qualifiers: Hypertension type: primary hypertension Qualified Code(s): I10 - Essential (primary) hypertension Code(s): I10 - Essential (primary) hypertension Status: Chronic Assessment and Plan: * chronic, currently 121/59 * continue home medications: Amlodipine 5 mg daily, metoprolol 50 mg b.i.d. * monitor Plan Code status: Full code per patient DVT prophylaxis: SCD's Stress ulcer prophylaxis: PT/OT notes: PT/OT pending Disposition: patient continues admission to the medical unit for recurrent seizure and postictal state. Will have PT OT evaluate patient in the a.m. plan to return back to her assisted living facility when medically stable. Time Spent With Patient Time with patient: 15 - 25 minutes Subjective Date/time seen: 08/13/24 14:01 Interval history: patient is 79-year-old female who was admitted for further evaluation and treatment after a seizure and postictal state. patient has been having recurrent seizures since February typically follows with Neurology at [facility] however seizures are becoming more frequent per daughter at bedside. 08/13/2024: Assumed Care Patient doing well today but very week daughter at bedside and updated on Dr. Anthony at [facility] neurology plans for inpatient EEG 24 hour monitoring for 5 days scheduled for Friday08/17/2024. Patient with no other complaints and no further seizures. PT ordered to evaluate for her to return to assisted living. RN attempted to ambulating this am who reported unsteady gate and needed 1 to 2 assist with walker. Review of Systems Review of Systems: All systems reviewed & are unremarkable except as noted in HPI and below Exam Narrative: * GENERAL: Alert and oriented x 3, lethargic pleasant female . No acute distress. Daughter at bedside * EYES:. PERRLA. * HEENT: Moist mucous membranes. * LUNGS: Clear to auscultation bilaterally. No accessory muscle use. * CARDIOVASCULAR: Regular rate and rhythm. No murmur. No JVD. S1-S2 * ABDOMEN: Soft, non tenderness and non-distended. No palpable masses. * EXTREMITIES: No edema. Non-tender * SKIN: No rashes or lesions. Skin warm, dry. * NEUROLOGIC: No focal neurological deficits. CN II-XII grossly intact * PSYCHIATRIC: Appropriate mood and affect. Good judgement and insight. Objective Data Vital Signs Vital Signs: Vital Signs - 24 hr 08/12/24 15:53 08/12/24 16:00 08/12/24 16:00 Temperature 98.5 F Pulse Rate 66 64 Respiratory Rate 24 H Blood Pressure 120/55 L Pulse Oximetry 95 Oxygen Delivery Room Air 08/12/24 17:49 08/12/24 19:35 08/12/24 20:00 Temperature 98.5 F Pulse Rate 77 76 Respiratory Rate 18 Blood Pressure 131/64 Pulse Oximetry 97 Oxygen Delivery Room Air 08/12/24 20:00 08/12/24 20:51 08/12/24 22:00 Temperature Pulse Rate 70 76 64 Respiratory Rate Blood Pressure Pulse Oximetry Oxygen Delivery 08/12/24 23:49 08/13/24 00:00 08/13/24 00:00 Temperature 98.3 F Pulse Rate 64 65 Respiratory Rate 22 H Blood Pressure 126/54 L Pulse Oximetry 97 Oxygen Delivery Room Air 08/13/24 02:00 08/13/24 04:00 08/13/24 04:00 Temperature Pulse Rate 72 67 Respiratory Rate Blood Pressure Pulse Oximetry Oxygen Delivery Room Air 08/13/24 04:46 08/13/24 06:00 08/13/24 08:00 Temperature 97.7 F 97.4 F L Pulse Rate 64 70 75 Respiratory Rate 16 18 Blood Pressure 122/48 L 145/71 H Pulse Oximetry 97 100 Oxygen Delivery 08/13/24 08:00 08/13/24 08:00 08/13/24 09:36 Temperature Pulse Rate 73 78 Respiratory Rate Blood Pressure Pulse Oximetry Oxygen Delivery Room Air 08/13/24 10:00 08/13/24 12:00 Temperature 97.6 F Pulse Rate 72 70 Respiratory Rate 16 Blood Pressure 122/63 Pulse Oximetry 93 Oxygen Delivery Intake/Output Intake/Output: Intake & Output 08/10/24 08/11/24 08/12/24 08/13/24 23:59 23:59 23:59 23:59 Intake Total 1100 490 240 Output Total 585 528 5075 Balance 558 -697 -744 Meds/Results Medications: Active Medications Generic Name Dose Route Start Last Admin Trade Name Freq PRN Reason Stop Dose Admin Acetaminophen 650 mg 08/11/24 10:12 Acetaminophen 325 Mg Tablet PO Q4H PRN Mild Pain (1-3) or Fever Hydrocodone Bitart/Acetaminophen 1 tab 08/11/24 10:12 Hydrocodone/Acetaminophen (*Crx) 5-325 Mg Tablet PO Q4H PRN Pain Rated 4-6 Amlodipine Besylate 5 mg 08/12/24 09:00 08/13/24 09:37 Amlodipine Besylate 5 Mg Tablet PO 5 mg DAILY AMY Administration Aspirin 81 mg 08/12/24 08:00 08/13/24 09:37 Aspirin 81 Mg Chewable Tablet PO 81 mg DAILY@0800 AMY Administration Calcium Citrate 1 tablet 08/12/24 09:00 08/13/24 09:37 Calcium Citrate 315 Mg/Vitamin D 6.25 Mcg (250 Units) Tab PO 1 tablet DAILY AMY Administration Dextrose 12.5 gm 08/11/24 14:19 Dextrose 50% 25 Gm/50 Ml Syringe IV PUSH PRN PRN Hypoglycemia Protocol Ferrous Sulfate 324 mg 08/12/24 09:00 08/13/24 09:36 Ferrous Sulfate [address] BY MOUTH 324 mg DAILY AMY Administration Glucagon 1 mg 08/11/24 14:19 Glucagon For Inj 1 Mg Vial IM PRN PRN Hypoglycemia Protocol Glucose 15 gm 08/11/24 14:19 Glucose Oral Gel 15 Gm Of Glucse In 37.5 Gm Tube PO PRN PRN Hypoglycemia Protocol Dextrose 1,000 mls @ 100 mls/hr 08/11/24 14:19 Dextrose 5% 1,000 Ml IVPB PRN PRN Hypoglycemia Protocol Insulin Aspart 3 - 6 units 08/12/24 23:15 08/13/24 08:50 Insulin Aspart (*Bkc) 100 Units/Ml SUB-Q Not Given TIDWM [facility] Protocol Lamotrigine 200 mg 08/11/24 21:00 08/13/24 09:36 Lamotrigine 100 Mg Tablet PO 200 mg Q12HR AMY Administration Lorazepam 2 mg 08/11/24 15:07 Lorazepam Inj (*Crx) 2 Mg/Ml Vial IV PUSH ONCE PRN seizure lasting >2 mins Losartan Potassium 100 mg 08/11/24 21:00 08/12/24 20:52 Losartan Potassium 100 Mg Tablet PO 100 mg HS AMY Administration Metoprolol Tartrate 50 mg 08/11/24 21:00 08/13/24 09:36 Metoprolol Tartrate 50 Mg Tab PO 50 mg Q12HR AMY Administration Non-Formulary ( 2 each 08/11/24 21:00 08/13/24 09:36 Mesalamine 0.375 PO 09/10/24 20:59 2 each Gram Oral Capsule, Q12HR AMY Administration Er 24 Hr) Ondansetron HCl 4 mg 08/11/24 10:12 Ondansetron Inj 4 Mg/2 Ml Vial IV PUSH Q4H PRN Nausea Pantoprazole Sodium 40 mg 08/11/24 21:00 08/12/24 20:51 Pantoprazole 40 Mg Tablet PO 40 mg HS AMY Administration Pravastatin Sodium 80 mg 08/11/24 21:00 08/12/24 20:51 Pravastatin Sodium 20 Mg Tablet PO 80 mg HS AMY Administration Rivastigmine 1 patch 08/11/24 21:00 08/12/24 20:52 Rivastigmine Tartrate 4.6 Mg Patch TRANSDERM 1 patch HS AMY Administration Radiology Results: ITS Impressions Chest X-Ray 08/11/24 06:49 Impression: Mild central congestive change. Possible COPD. Head CT 08/11/24 07:29 Impression: No intracranial hemorrhage, mass, or acute infarct. Atrophy and chronic white matter changes, as above. Cervical Spine CT 08/11/24 07:31 Impression: No acute fracture or acute subluxation. Stable 4 mm anterolisthesis of C4 over C5. Mild degenerative spondylosis. Brain MRI 08/13/24 09:12 IMPRESSION: 1. Numerous foci of susceptibility artifact consistent with sequela of chronic microhemorrhage in the bilateral thalami, basal ganglia, cerebral and cerebellar hemispheres which suggests sequela of either chronic hypertension or amyloid angiopathy. 2. Moderate periventricular predominant nonspecific white matter T2 hyperintensity consistent with chronic small vessel ischemic disease. Labs Labs: Laboratory Results - last 24 hr 08/12/24 08/13/24 08/13/24 18:32 00:04 04:33 WBC 9.3 RBC 4.59 Hgb 13.4 Hct 41.4 MCV 90.2 MCH 29.2 MCHC 32.4 RDW 13.8 Plt Count 242 MPV 9.3 Sodium 138 Potassium 3.3 L Chloride 103 Carbon Dioxide 28 Anion Gap 7 BUN 20 H Creatinine 0.82 Estim Creat Clear Calc 42 Estimated GFR > 60 Glucose 112 H POC Capillary Glucose 182 H 97 Calcium 9.0 Total Bilirubin 0.7 AST 24 ALT 20 Alkaline Phosphatase 99 Total Protein 6.0 L Albumin 3.6 08/13/24 08:31 WBC RBC Hgb Hct MCV MCH MCHC RDW Plt Count MPV Sodium Potassium Chloride Carbon Dioxide Anion Gap BUN Creatinine Estim Creat Clear Calc Estimated GFR Glucose POC Capillary Glucose 191 H Calcium Total Bilirubin AST ALT Alkaline Phosphatase Total Protein Albumin Quality VTE Prophylaxis VTE prophylaxis: mechanical ordered -Patient's previous records reviewed on admission -ER notes reviewed in detail on admission -discussed all findings and current treatment plan with patient/Family/POA -Consultations reviewed for recommendations -Patient's disposition for safe discharge discussed with returned case inspector Dictation performed by [employer] direct speech recognition software, therefore artist's representative variants and typographical errors may occur. Hospitalist MIPS Advance Care Plan I have confirmed that the patient's Advanced Care Plan is present, code status is documented, or surrogate decision maker is listed in patient medical record.: Yes Medication Reconciliation I have utilized all available resources to obtain, update and review the patients current medications (includes all prescriptions, OTC, herbals, cannabis, and nutritional supplements).: Yes The patient is not eligible for med reconciliation; the patient is in a emergent medical situation where delaying treatment would jeopardize the patients health.: No
[2024-08-13 14:08] LABS: Glucose Point of Care 175 mg/dl (65-105)
[2024-08-13] MEDS: POTASSIUM CHLORIDE 20 MEQ PACKET (FOR LIQUID) 40 MEQ PO (14:10)
--- NOTE | 2024-08-13 16:23 | P.DS_ITS ---
DS: Admitting Diagnosis Discharge Date 08/13/2024 Admitting Diagnosis acute seizure DS: Discharge Diagnosis Discharge Diagnosis (1) Epilepsy: Qualifiers: Epilepsy type: partial symptomatic Intractability: not intractable Partial seizure type: with complex partial seizures Status epilepticus: without status epilepticus Qualified Code(s): G40.209 - Localization-related (focal) (partial) symptomatic epilepsy and epileptic syndromes with complex partial seizures, not intractable, without status epilepticus Code(s): G40.909 - Epilepsy, unspecified, not intractable, without status epilepticus Status: Acute Assessment and Plan: patient with recurrent seizures initial onset about 2 years prior but is had been getting worse for the last 6 months * Head CT: No intracranial hemorrhage, mass, or acute infarct. Atrophy and chronic white matter changes, as above. * seizure and fall precautions * Lamictal level pending last level 9.6 at [facility] * neurology consulted, awaiting formal recs * viral pcr negative, UA negative, CXR negative for indicators of infection * neurological checks Q4H * continue Lamictal 200 mg b.i.d. * MRI pending /SARAH from 2022: A few foci of susceptibility artifact at the bilateral thalami and with typical pattern for chronic microhemorrhage in the setting of hypertension/ Age-related changes including mild diffuse volume loss and moderate scattered nonspecific white matter T2 hyperintensity consistent with chronic small vessel ischemic disease. * TSH pending * Ativan PRN for seizure activity * Cardiac monitoring * Patient had previous holter monitor for 1 month with no findings 08/13/2024 * MRI: Numerous foci of susceptibility artifact consistent with sequela of chronic microhemorrhage in the bilateral thalami, basal ganglia, cerebral and cerebellar hemispheres which suggests sequela of either chronic hypertension or amyloid angiopathy. * Plan for inpatient at [facility] continuous EEG [address] Anthony * Still very weak PT evaluation pending (2) Diabetes: Qualifiers: Diabetes mellitus complication status: without complication Diabetes mellitus custodial insulin use: without custodial use Diabetes mellitus type: type 2 Qualified Code(s): E11.9 - Type 2 diabetes mellitus without complications Code(s): E11.9 - Type 2 diabetes mellitus without complications Status: Acute Assessment and Plan: * hypoglycemia protocol * POC blood glucose ACHS * home medication: hold metformin * SSI moderate dose TIDWM * A1C 6.5 (3) Hypertension: Qualifiers: Hypertension type: primary hypertension Qualified Code(s): I10 - Essential (primary) hypertension Code(s): I10 - Essential (primary) hypertension Status: Chronic Assessment and Plan: * chronic, currently 121/59 * continue home medications: Amlodipine 5 mg daily, metoprolol 50 mg b.i.d. * monitor Plan Code status: Full code per patient DVT prophylaxis: SCD's Stress ulcer prophylaxis: PT/OT notes: PT/OT pending Disposition: patient continues admission to the medical unit for recurrent seizure and postictal state. Will have PT OT evaluate patient in the a.m. plan to return back to her assisted living facility when medically stable. DS: Summary Hospital Course Reason for hospitalization: Seizure Hospital Course: Patient was a 79 y/o F presents here with seizure and report PMH of complex partial seizures, GERD, DM, HLD, ulcerative colitis, dementia, and hypertension. The patient presents here from [facility] via EMS for further evaluation after seizure. The patient has a past medical history of seizures, currently Lamictal. Taken off Vimpat last fall (2023). Per EMS report to the ED, the patient was postictal upon their arrival. She arrived to the emergency department responsive to pain only. Patient was admitted to IMU for further evaluation, observation, and management of her seizures. Infectious process was r/o viral panel negative and no other source of infection found. Daughter had reported patient started having seizures about 2 years ago and currently follows with Dr. Anthony. Patient was monitored and placed on seizure precautions during her admission with a consult to neurology. Daughter als reported she had already performed the on month Holter monitor with no findings. MRI brain was performed that showed: * Numerous foci of susceptibility artifact consistent with sequela of chronic microhemorrhage in the bilateral thalami, basal ganglia, cerebral and cerebellar hemispheres which suggests sequela of either chronic hypertension or amyloid angiopathy. Patient was given Keppra IV in the ED and then transitioned to 200 mg of Lamictal PO home dose once alert. Patient with moderate weakness but improved over the course of her stay. Dr. Camargo and Dr. Anthony Neurologist at [facility] spoke and plan was for discharge to assisted living and 5 day admit to [facility] for Continues EEG. Daughter and patient both acknowledged and agreed with discharge plan. Patient had no further seizure activity during stay and was discharged back to assisted living facility. Status at Discharge Functional status at discharge: uses cane/walker Time Spent with Patient Time attestation: Total time spent providing and/or coordinating discharge services: Time spent: Greater than 30 minutes Exam Narrative: * GENERAL: Alert and oriented x 3, lethargic pleasant female . No acute distress. Daughter at bedside * EYES:. PERRLA. * HEENT: Moist mucous membranes. * LUNGS: Clear to auscultation bilaterally. No accessory muscle use. * CARDIOVASCULAR: Regular rate and rhythm. No murmur. No JVD. S1-S2 * ABDOMEN: Soft, non tenderness and non-distended. No palpable masses. * EXTREMITIES: No edema. Non-tender * SKIN: No rashes or lesions. Skin warm, dry. * NEUROLOGIC: No focal neurological deficits. CN II-XII grossly intact * PSYCHIATRIC: Appropriate mood and affect. Good judgement and insight. DS: Data Data Completed and Pending Labs on day of discharge: Labs from last 24 hours 08/13/24 08/13/24 08/13/24 11:33 08:31 04:33 WBC 9.3 RBC 4.59 Hgb 13.4 Hct 41.4 MCV 90.2 MCH 29.2 MCHC 32.4 RDW 13.8 Plt Count 242 MPV 9.3 Sodium 138 Potassium 3.3 L Chloride 103 Carbon Dioxide 28 Anion Gap 7 BUN 20 H Creatinine 0.82 Estim Creat Clear Calc 42 Estimated GFR > 60 Glucose 112 H POC Capillary Glucose 175 H 191 H Calcium 9.0 Total Bilirubin 0.7 AST 24 ALT 20 Alkaline Phosphatase 99 Total Protein 6.0 L Albumin 3.6 08/13/24 08/12/24 00:04 18:32 WBC RBC Hgb Hct MCV MCH MCHC RDW Plt Count MPV Sodium Potassium Chloride Carbon Dioxide Anion Gap BUN Creatinine Estim Creat Clear Calc Estimated GFR Glucose POC Capillary Glucose 97 182 H Calcium Total Bilirubin AST ALT Alkaline Phosphatase Total Protein Albumin Discharge Plan Discharge Attending physician on discharge: Mery Brooks Consulting providers: Ailyn Hernandez; Cheryle Vázquez; Fredy Raya; Mikel Dang Discharging Clinician: Annemarie Christiansen Anticipated Discharge Date/Time: 08/13/24 16:17 Patient Disposition: NH Shelter/Asst Living Activity: as tolerated Diet: heart healthy Discharge Instructions: Seizure: * Continue with current medication * Plan for inpatient 5 day continuous EEG monitoring at [facility] with your neurologist 08/17/2024 * seizure precautions if you experience seizure please seek attention How can you care for yourself at home? ? Keep track of any new symptoms or changes in your symptoms. ? Rest until you feel better. ? Be safe with medicines. Take your medicines exactly as prescribed. Call your doctor if you think you are having a problem with your medicine. ? Do not drive after taking a prescription pain medicine. ? Ensure to follow-up with primary care physician as indicated and provide updated medication list provided to you at discharge. When should you call for help? Call 911 anytime you think you may need emergency care. For example, call if: ? You passed out (lost consciousness). Call your doctor now or seek immediate medical care if: ? You have new symptoms like fever, difficulty breathing, Chest pain, vomiting, or rash. ? You have new or different pain. ? You are confused and are having trouble thinking clearly. ? Your symptoms are getting worse. Watch closely for changes in your health, and be sure to contact your doctor if: ? You do not get better as expected. Patient Instructions: Antibiotic Form, Epilepsy (DC) Patient Language: Estonian Stand Alone Forms: General Discharge Information Follow-up/Referrals: jeison [Other] - Keep Reg. Scheduled Appt. (EEG) Discharge Medications: Continued amlodipine 5 mg tablet 5 mg PO DAILY pantoprazole 40 mg tablet,delayed release (DR/EC) 40 mg PO HS metoprolol tartrate 50 mg tablet 50 mg PO Q12H mesalamine 0.375 gram capsule,extended release 24hr 0.75 g PO Q12H metformin 750 mg tablet extended release 24 hr 750 mg PO DAILY vedolizumab 300 mg 300 mg IV PUSH DIRECTED Rx Instructions: Infuse 5ml every 8 weeks ferrous sulfate 324 mg (65 mg iron) tablet,delayed release (DR/EC) 324 mg PO DAILY pravastatin 40 mg tablet 80 mg PO HS losartan 100 mg tablet 100 mg PO HS rivastigmine 4.6 mg/24 hour patch 24 hour 4.6 mg topical HS aspirin 81 mg Capsule 81 mg PO QAM calcium citrate-vitamin D3 [Calcium Citrate + D] 315 mg-5 mcg (200 unit) tablet 1 tablet PO DAILY lamotrigine 200 mg tablet 200 mg PO Q12H Discontinued acetaminophen 650 mg tablet extended release 650 mg PO Q8H PRN (Reason: pain) Qty: 20 0RF Date of admission: 08/12/24 13:30 Primary Care Provider: YelitzaServando Admitting Provider: Mery Brooks Attending physician on admission: Annemarie Christiansen Condition: Stable Quality VTE Prophylaxis VTE prophylaxis: mechanical ordered -Patient's previous records reviewed on admission -ER notes reviewed in detail on admission -discussed all findings and current treatment plan with patient/Family/POA -Consultations reviewed for recommendations -Patient's disposition for safe discharge discussed with family service caseworker Dictation performed by [employer] direct speech recognition software, therefore expansion envelope maker hand variants and typographical errors may occur. Hospitalist MIPS Heart Failure (Exclusion) Patient has history of Heart Transplant or Left Ventricular Assistive Device?: No IF YES, STOP HERE Heart Failure (Qualifier) Patient has current or prior documentation of LVEF less than or equal to 40%, or mod/servere depressed LVSF?: No IF NO, STOP HERE
--- NOTE | 2024-08-13 16:56 | PCCCNOTE ---
Called to the floor regarding pt getting discharged back to [facility]. I called the facility, spoke with Viola, the nurse there, and she said pt was fine to return tonight. Pt did not need a Covid test. Discharge packet made and taken to the floor.
[2024-08-13 17:30] LABS: Glucose Point of Care 119 mg/dl (65-105)
[2024-08-14 17:39] LABS: Lamotrigine Lamictal 11.8 mcg/mL (2.5-15.0)
--- OUTSIDE RECORDS SUMMARY | 2024-08-18 10:35 | XMS_ITS | Encounter Summary ---
Author Organization [facility] Address [address] [place] [address] [place] [address] Care Team Providers Care Stone Cleaner Name Role Phone Servando Torre MD Primary Care Provider Encounter Details Date Type Department Care Team (Latest Contact Info) Description 08/03/2024 Travel Social History Tobacco Use Types Packs/Day [...] Care Team (Late st Contact Info) Description 09/28/2024 2:30 PM ICE GUARD INSPECTOR Appointment [facility] [id number] [place] [id number] Josué Cook MD [address] [address] documented as of this encounter Goals Goal Patient Goal Type Associated Problems Recent Progress Patient-Stated? Author HOME TO [place] Vannessa Light RN documented as of this encounter Visit Diagnoses Not on filedocumented in this encounter Additional Health Concerns Assessment Noted Time PHQ-9 Depression Total Score: 0 07/06/20 21 4:06 PM ICE GUARD INSPECTOR documented as of this encounter Care Teams Stone Cleaner Relationship Specialty Start Date End Date Servando Torre MD [address] [place] [address] [address] [place] [address] PCP - General FAMILY PRACTICE 07/17/22 documented as of this encounter
--- OUTSIDE RECORDS SUMMARY | 2024-08-18 10:35 | XMS_ITS | Clinical Summary ---
Author Organization [facility] Address [address] [facility] [place] [address] [place] [address] Care Team Providers Care Gym Manager Name Role Phone Servando Torre MD Primary Care Provider [phone] Allergies Active Allergy Reactions Criticality Noted Date [...] tests 05/20/2023 Chronic ulcerative colitis, unspecified complication ([facility]/HCC) 06/18/2022 Ulcerative pancolitis withou t complication ([facility]) 09/04/2021 Overview (09/04/2021): Added automatically from request for surgery [id number] Colitis 03/20/2020 Encounters Date Type Department Care Team Description 08/03/2024 2:16 PM ASSURANCE SENIOR MANAGER - 08/03/2024 3:00 PM ASSURANCE SENIOR MANAGER Hospital Encounter [facility] [address] [place] [address] Josué Cook MD Discharge Disposition: Home or Self Care (Routine Discharge) 08/03/2024 Travel 05/28/2024 1:43 PM CDT - 05/28/2024 2:55 PM CDT Hospital Encounter [facility] [address] [place] [address] Josué Cook MD Discharge Disposition: Home or [...] Sign Reading Time Taken Comments Blood Pressure 129/56 08/03/2024 2:46 PM ASSURANCE SENIOR MANAGER Pulse 65 05/28/2024 2:06 PM CDT Temperature 36.7 ??C (98 ??F) 08/03/2024 1:44 PM ASSURANCE SENIOR MANAGER Respiratory Rate 18 05/28/2024 2:06 PM CDT Oxygen Saturation 97% 08/03/2024 1:42 PM ASSURANCE SENIOR MANAGER Inhaled Oxygen Concentration - - Weight 69.9 kg (154 lb) 04/19/2022 2:44 PM CDT Height 157.5 cm (5' 2 ) 04/19/2022 2:44 PM CDT Body Mass Index 28.17 04/19/2022 2:44 PM CDT Plan of Treatment Upcoming Encounters Date Type Department Care Team (Late st Contact Info) Description 09/28/2024 2:30 PM ASSURANCE SENIOR MANAGER Appointment [facility] [address] [place] [address] Josué Cook MD [address] [address] Health Maintenance Due Date Last Done Comments PHQ-2 (Physician [place]) 1957 DTaP, Tdap and Td Vaccines ( 1 - Tdap) 1962 Annual Medicare Wellness Visit 2008 RSV Immunization or 60+ Years (1 - 1-dose 75+ series) 2018 COVID-19 Vaccine (2 - Pfizer risk series) 06/20/2022 05/30/2022 Influenza Adult (#1) 2024 05/06/2022 Zoster Vaccines Completed 08/01/2020, 05/30/2020 Dexa Scan (General) Completed 12/12/2022, 12/12/2022 Pneumococcal Vaccine: 65+ Years Completed 03/27/2023 Meningococcal B Vaccine Aged Out No l onger eligible based on patient's age to complete this topic Meningococcal Vaccine Aged Out No elizabeth lang eligible based on patient's age to complete this topic RSV Immunizations Under 20 Months Aged Out No longer eligible b ased on patient's age to complete this topic Goals Goal Patient Goal Type Associated Problems Recent Progress Patient-Stated? Author HOME TO [facility] Vannessa Light bread stacker Procedure Name Priority Date/Time Associated Diagnosis Comments C-REACTIVE PROTEIN Routine 08/03/2024 1: 30 PM ASSURANCE SENIOR MANAGER Chronic ulcerative colitis, unspecified complication (CMS/HCC HHS/HCC) Abnormal liver function tests CBC W/DIFF AUTOMATED Routine 08/03/2024 1:30 PM ASSURANCE SENIOR MANAGER Chronic ulcerative colitis, unspecified complication (CMS/HCC HHS/HCC) Abnormal liver function tests COMPREHENSIVE METABOLIC PANEL Routine 08/03/2024 1:30 PM ASSURANCE SENIOR MANAGER Chronic ulcerative colitis, unspecified complication (CMS/HCC [...] tests from Last 3 Months Results * (ABNORMAL) COMPREHENSIVE METABOLIC PANEL (08/03/2024 1:30 PM ASSURANCE SENIOR MANAGER) Only the most recent of2 resultswithin the time period is included. GLUCOSE 160(H) 70 - 99 MG/DL 08/03/2024 2:[address] [facility] BUN 18 7 - 18 MG/DL 08/03/2024 2:[address] [facility] CREATININE S/P/B 1.21(H) 0.55 - 1.02 MG/DL 08/03/2024 2:[address] [facility] SODIUM S/P/B 142 136 - 145 MMOL/L 08/03/2024 2:[address] [facility] POTASSIUM S/P/B 4.0 3.5 - 5.1 MMOL/L 08/03/2024 2:[address] [facility] CHLORIDE S/P/B 105 100 - 108 MMOL/L 08/03/2024 2:[address] [facility] CO2 25.9 21 - 32 MMOL/L 08/03/2024 2:[address] [facility] CALCIUM S/P/B 9.7 8.5 - 10.1 MG/DL 08/03/2024 2:[address] [facility] BILIRUBIN TOTAL S/P/B 0.4 0.2 - 1.2 MG/DL 08/03/2024 2:[address] [facility] TOTAL PROTEIN S/P/B 6.8 6.4 - 8.2 G/DL 08/03/2024 2:[address] [facility] ALBUMIN S/P/B 3.7 3.4 - 5.0 G/DL 08/03/2024 2:[address] [facility] AST 16 15 - 37 U/L 08/03/2024 2:[address] [facility] ALT 17 14 - 55 U/L 08/03/2024 2:[address] [facility] ALKALINE PHOSPHATASE S/P/B 120 50 - 136 U/L 08/03/2024 2:[address] [facility] ANION GAP 11.1 5 - 15 MMOL/L 08/03/2024 2:[address] [facility] BUN CREATININE RATIO 14.9 6 - 26 08/03/2024 2:[address] [facility] A/G RATIO 1.2 1.0 - 2.0 RATIO 08/03/2024 2:[address] [facility] GFR ESTIMATE 45(L) >90 ML/MIN/1.7 3 M2 08/03/2024 2:[address] [facility] Comment: NOTE: eGFR is not calculated for patients <18 years of age. This is an estimated GFR calculation using the new CKD EPI creatinine equation without race and so does not require a correction factor for race. This estimated GFR should not be used for calculating drug doses. 08/03/2024 1:30 PM ASSURANCE SENIOR MANAGER Josué Cook MD LABORATORY Final Result [facility] [address] [place] [address], * C-REACTIVE PROTEIN (08/03/2024 1:30 PM ASSURANCE SENIOR MANAGER) Only the most recent of2 resultswithin the time period is included. C-REACTIVE PROTEIN <0.29 <0.29 mg/dL 08/03/2024 10:01 PM [facility] 08/03/2024 1:30 PM ASSURANCE SENIOR MANAGER Joséu Cook MD LABORATORY Final Result [facility] [address] [place] [address], [place] [phone] * (ABNORMAL) CBC W/DIFF AUTOMATED (08/03/2024 1:30 PM ASSURANCE SENIOR MANAGER) Only the most recent of2 resultswithin the time period is included. WBC 8.96 4.4 - 11.0 x10'3/uL 08/03/2024 2:[address] [facility] RBC 4.72 4.50 - 5.10 x10'6/uL 08/03/2024 2:[address] [facility] HGB 13.7 12.3 - 15.3 G/DL 08/03/2024 2:[address] [facility] HCT 42.2 35.9 - 44.6 % 08/03/2024 2:[address] [facility] MCV 89.4 80.0 - 96.0 FL 08/03/2024 2:[address] [facility] MCH 29.0 25.3 - 30.9 PG 08/03/2024 2:[address] [facility] MCHC 32.5 31.0 - 34.1 G/DL 08/03/2024 2:[address] [facility] RDW 13.8 12.4 - 15.1 % 08/03/2024 2:[address] [facility] PLT 278 151 - 353 x10'3/uL 08/03/2024 2:[address] [facility] MPV 9.0(L) 9.6 - 12.0 FL 08/03/2024 2:[address] [facility] RBC MORPHOLOGY NORMAL 08/03/2024 2:[address] [facility] PLT MORPH. NORMAL 08/03/2024 2:[address] [facility] WBC MORPHOLOGY NORMAL 08/03/2024 2:[address] [facility] LYMPHOCYTES % 22.2 15.8 - 45.0 % 08/03/2024 2:[address] [facility] NEUTROPHILS % 67.6 42.1 - 71.9 % 08/03/2024 2:[address] [facility] MONOCYTES % 9.2 5.7 - 12.5 % 08/03/2024 2:[address] [facility] EOSINOPHILS 0.0 0.0 - 5.6 % 08/03/2024 2:[address] [facility] BASOPHILS 0.6 0.0 - 1.3 % 08/03/2024 2:[address] [facility] ABS. NEUTROPHILS 6.06(H) 1.40 - 6.00 x10'3/uL 08/03/2024 2:[address] [facility] IMMATURE GRANS % 0.4 0.0 - 0.5 % 08/03/2024 2:[address] [facility] ABS. LYMPHOCYTES 1.99 0.80 - 4.70 x10'3/uL 08/03/2024 2:[address] [facility] 08/03/2024 1:30 PM ASSURANCE SENIOR MANAGER us Josué Cook MD LABORATORY Final Result [facility] [address] [place] [address], * QUANTIFERON TBGOLD TUBERCULOSIS TEST (05/28/2024 2:00 PM CDT) TB1 AG MINUS NIL 0.01 IU/ML 05/31/20 24 1:56 PM ASSURANCE SENIOR MANAGER [facility] TB2 AG MINUS NIL 0.04 IU/ML 05/31/20 24 1:56 PM ASSURANCE SENIOR MANAGER [facility] TB QUANTIFERON NEGATIVE NEGATIVE 05/31/2024 1:56 PM ASSURANCE SENIOR MANAGER [facility] TB INTERPRETATION M. tuberculosis infection unlikely but cannot be excluded especially when any illness is consistent with TB disease and/or likelihood of progression to disease is increased. ?? In patients at high risk to M. tuberculosis infection, a second test should be considered. 05/31/2024 1:56 PM ASSURANCE SENIOR MANAGER [facility] 05/28/2024 2:00 PM CDT Josué Cook MD LABORATORY Final Result [facility] [address] [place] [address], [place] [phone] [id number] * HEPATITIS B SURFACE AG, EIA (05/28/2024 2:00 PM CDT) Pathologist [facility] HEPATITIS B SURFACE AG NON-REACTI VE NON-REACTI VE 05/28/2024 8:34 PM CDT [facility] 05/28/2024 2:00 PM CDT Josué Cook MD LABORATORY Final Result [facility] [address] [place] [address], [place] [phone] * HEPATITIS B SURFACE ANTIBODY (05/28/2024 2:00 PM CDT) Pathologist [facility] HEP B SURFACE AB NON-REACTI VE 05/28/2024 11:01 PM CDT [facility] 05/28/2024 2:00 PM CDT Josué Cook MD LABORATORY Final Result [facility] [address] [place] [address], [place] [phone] * HEPATITIS B CORE ANTIBODY (05/28/2024 2:00 PM CDT) HEP B CORE TOTAL AB NON-REACTI VE NON-REACTI VE 05/28/2024 9:04 PM CDT [facility] 05/28/2024 2:00 PM CDT Josué Cook MD LABORATORY Final Result Performing Organization Address City[facility] Co de Phone Number [facility] [address] [place] [address], [place] [phone] from Last 3 [place] [id number] [facility] Advance Directives * Full Code (Latest Code Status on File) Date Activated Date Inactivated Comments 03/20/2020 11:16 AM 03/23/2020 7:48 PM Care Teams Gym Manager Relationship Specialty Start Date End Date Servando Torre MD [address] [facility] [address] [place] [address] PCP - General FAMILY PRACTICE 07/17/22
--- OUTSIDE RECORDS SUMMARY | 2024-08-18 10:36 | XMS_ITS | Encounter Summary ---
Author Organization [facility] Address [address] [facility] [place] [address] [place] [address] Care Team Providers Care Slab Off Mill Tender Name Role Phone Servando Torre MD Primary Care Provider [phone] Encounter Details Date Type Department Care Team (Late st Contact Info) Description 08/19/2023 Therapy Plan [facility] [address] [place] [address] Josué Cook MD [address] [place] [id number] Social History Tobacco Use Types Packs/Day Years [...] st Contact Info) Description 09/28/2024 2:30 PM UTILITY TELLER Appointment [address] [phone] Josué Cook MD [address] [address] documented as of this encounter Goals Goal Patient Goal Type Associated Problems Recent Progress Patient-Stated? Author HOME TO [facility] No Vannessa Blackwell RN documented as of this encounter Visit Diagnoses Diagnosis Abnormal liver function tests- Primary Other abnormal blood chemistry Chronic ulcerative colitis, unspecified complication (CMS/HCC HHS/HCC) documented in this encounter Additional Health Concerns Assessment Noted Time PHQ-9 Depression Total Score: 0 07/06/20 21 4:06 PM UTILITY TELLER documented as of this encounter Care Teams Slab Off Mill Tender Relationship Specialty Start Date End Date Servando Torre MD [address] [place] [address] [address] [place] [address] PCP - General FAMILY PRACTICE 07/17/22 documented as of this encounter
--- OUTSIDE RECORDS SUMMARY | 2024-08-18 10:36 | XMS_ITS | Encounter Summary ---
Author Organization [facility] Address [address] [facility] [place] [address] [place] [address] Care Team Providers Care Handyman Name Role Phone Servando Torre MD Primary Care Provider [phone] Reason for Visit * Treatment/Therapy Plan Authorization (Routine) - Authorized Specialty Diagnoses / Procedures Referred By Angel braswell Referred To Contact Diagnoses Chronic ulcerative colitis, unspecified complication ([facility]/HCC HHS/HCC) Abnormal liver function tests Procedures VEDOLIZUMAB, INJECTION [facility] [address] [place] [address] Phone: tel: [facility] [address] [place] [address] Phone: tel: Referral ID Status Reason Start Date Expiration Date Visits Requested Visits Authorized [id number] Authorized Medication 05/01/2023 08/30/2024 99 99 Encounter Details Date Type Department Care Team (Latest Contact Info) Description 10/07/2023 1:33 PM CDT - 10/07/2023 3:00 PM CDT Hospital Encounter [facility] [address] [place] [address] Josué Cook MD [address] [facility] [address] [place] [address] Discharge Disposition: Home or Self Care (Routine [...] st Contact Info) Description 09/28/2024 2:30 PM AUTO PARKER Appointment [address] [address] Josué Cook MD [address] [facility] [address] [place] [address] documented as of this encounter Goals Goal [...] <0.29 <0.29 mg/dL 10/07/2023 7:35 PM CDT [facility] 10/07/2023 1:39 PM CDT us Josué Cook MD LABORATORY Final Result [facility] [address] [place] [address], [place] [phone] * (ABNORMAL) CBC W/DIFF AUTOMATED (10/07/2023 1:39 PM CDT) Pathologist [facility] WBC 7.69 4.4 - 11.0 x10'3/uL 10/07/2023 1:59 PM CDT [facility] RBC 4.61 4.50 - 5.10 x10'6/uL 10/07/2023 1:59 PM CDT [facility] HGB 14.1 12.3 - 15.3 G/DL 10/07/2023 1:59 PM CDT [facility] HCT 43.3 35.9 - 44.6 % 10/07/2023 1:59 PM CDT [facility] MCV 93.9 80.0 - 96.0 FL 10/07/2023 1:59 PM CDT [facility] MCH 30.6 25.3 - 30.9 PG 10/07/2023 1:59 PM CDT [facility] MCHC 32.6 31.0 - 34.1 G/DL 10/07/2023 1:59 PM CDT [facility] RDW 13.5 12.4 - 15.1 % 10/07/2023 1:59 PM T [facility] PLT 248 151 - 353 x10'3/uL 10/07/2023 1:59 PM T [facility] MPV 9.4(L) 9.6 - 12.0 FL 10/07/2023 1:59 PM T [facility] RBC MORPHOLOGY NORMAL 10/07/2023 1:59 PM T [facility] PLT MORPH. NORMAL 10/07/2023 1:59 PM T [facility] WBC MORPHOLOGY NORMAL 10/07/2023 1:59 PM T [facility] LYMPHOCYTES % 11.8(L) 15.8 - 45.0 % 10/07/2023 1:59 PM CDT [facility] NEUTROPHILS % 84.7(H) 42.1 - 71.9 % 10/07/2023 1:59 PM CDT [facility] MONOCYTES % 1.8(L) 5.7 - 12.5 % 10/07/2023 1:59 PM T [facility] EOSINOPHILS 0.9 0.0 - 5.6 % 10/07/2023 1:59 PM CDT [facility] BASOPHILS 0.5 0.0 - 1.3 % 10/07/2023 1:59 PM CDT [facility] ABS. NEUTROPHILS 6.51(H) 1.40 - 6.00 x10'3/uL 10/07/2023 1:59 PM CDT [facility] IMMATURE GRANS % 0.3 0.0 - 0.5 % 10/07/2023 1:59 PM CDT [facility] ABS. LYMPHOCYTES 0.91 0.80 - 4.70 x10'3/uL 10/07/2023 1:59 PM CDT [facility] 10/07/2023 1:39 PM CDT us Josué Cook MD LABORATORY Final Result [facility] [address] [place] [id number], [place] [phone] * (ABNORMAL) COMPREHENSIVE METABOLIC PANEL (10/07/2023 1:39 PM CDT) GLUCOSE 185(H) 70 - 99 MG/DL 10/07/2023 2:29 PM CDT [facility] BUN 19(H) 7 - 18 MG/DL 10/07/2023 2:29 PM CDT [facility] CREATININE S/P/B 1.07(H) 0.55 - 1.02 MG/DL 10/07/2023 2:29 PM CDT [facility] SODIUM S/P/B 141 136 - 145 MMOL/L 10/07/2023 2:29 PM CDT [facility] POTASSIUM S/P/B 4.5 3.5 - 5.1 MMOL/L 10/07/2023 2:29 PM CDT [facility] CHLORIDE S/P/B 102 100 - 108 MMOL/L 10/07/2023 2:29 PM [facility] CO2 29.8 21 - 32 MMOL/L 10/07/2023 2:29 PM [facility] CALCIUM S/P/B 9.8 8.5 - 10.1 MG/DL 10/07/2023 2:29 PM [facility] BILIRUBIN TOTAL S/P/B 0.2 0.2 - 1.2 MG/DL 10/07/2023 2:29 PM [facility] TOTAL PROTEIN S/P/B 7.6 6.4 - 8.2 G/DL 10/07/2023 2:29 PM [facility] ALBUMIN S/P/B 3.7 3.4 - 5.0 G/DL 10/07/2023 2:29 PM [facility] AST 12(L) 15 - 37 U/L 10/07/2023 2:29 PM [facility] ALT 18 14 - 55 U/L 10/07/2023 2:29 PM [facility] ALKALINE PHOSPHATASE S/P/B 98 50 - 136 U/L 10/07/2023 2:29 PM [facility] ANION GAP 9.2 5 - 15 MMOL/L 10/07/2023 2:29 PM [facility] BUN CREATININE RATIO 17.8 6 - 26 10/07/2023 2:29 PM [facility] A/G RATIO 0.9(L) 1.0 - 2.0 RATIO 10/07/2023 2:29 PM [facility] GFR ESTIMATE 53(L) >90 ML/MIN/1.7 3 M2 10/07/2023 2:29 PM [facility] Comment: NOTE: eGFR is not calculated for patients <18 years of age. This is an estimated GFR calculation using the new CKD EPI creatinine equation without race and so does not require a correction factor for race. This estimated GFR should not be used for calculating drug doses. 10/07/2023 1:39 PM CDT Josué Cook MD LABORATORY Final Result [facility] [address] [place] [address], * (ABNORMAL) MISCELLANEOUS LAB TEST (10/07/2023 1:39 PM CDT) TEST NAME: [id number] VEDOLIZUMAB 10/07/2023 1:57 PM CDT [facility] SPECIMEN TYPE SERUM 10/07/2023 1:57 PM CDT [facility] TEST RESULT: Flexitest 1(A) 10/14/19 24 4:17 PM CDT [facility]ers[facility] JÚNIOR KATE Comment: Flexitest 1 TESTS RESULTS--------UNITS--REF. RANGE--- Vedolizumab QN, S ?10.9 L ? mcg/mL ?? REFERENCE VALUE Lower limit of quantitation = 2.0 mcg/mL ADDITIONAL INFORMATION This test was developed and its performance characteristics determined by [facility] in a manner consistent with CLIA requirements. This test has not been cleared or approved by the U.S. Food and Drug Administration. Vedolizumab Ab, S ?<9.8 ?ng/mL ??<9.8 VEMAB Interpretation ? REPORT ? RESULT: Absence of detectable [id number]. ADDITIONAL INFORMATION This test was developed and its performance characteristics determined by [facility] in a manner consistent with CLIA requirements. This test has not been cleared or approved by the U.S. Food and Drug Administration. Test performed by: ? [facility] [address] ? [address] ? [place] [address] ? Sales Demonstrator: Holden Redman M.D., Ph.D; CLIA# [id number] Test Reported by Sierra Nelson, [email or web address] [facility], [address] [place] [address] Gamal Gao M.D., Ph.D., Director of Laboratories , CLIA [id number] 10/07/2023 1:39 PM CDT Josué Cook MD LABORATORY Final Result Performing Organization Address City/State/[facility] Co de Phone Number [id number] [place], [place] , [place] [phone] [facility] [address] [place] [address], [place] [phone] documented in this encounter Visit Diagnoses Diagnosis [...] this section may contain times in both AUTO PARKER and CDT. Scheduled Medication Order 10/05/2023 10/06/2023 [...] Total Score: 0 07/06/20 21 4:06 PM AUTO PARKER documented as of this encounter Care Teams Handyman Relationship Specialty Start Date End Date Servando Torre MD [address] [place] [address] [address] [place] [address] PCP - General FAMILY PRACTICE 07/17/22 documented as of this encounter
--- OUTSIDE RECORDS SUMMARY | 2024-08-18 10:36 | XMS_ITS | Encounter Summary ---
Author Organization [facility] Address [address] [facility] [place] [address] [place] [address] Care Team Providers Care Deck Hand Name Role Phone Servando Torre MD [...] st Contact Info) Description 09/28/2024 2:30 PM CAFE SITE ATTENDANT Appointment [facility] [id number] [place] [address] Josué Cook MD [address] [address] documented as of this encounter Goals Goal Patient Goal Type Associated Problems Recent Progress Patient-Stated? Author HOME TO [facility] Vannessa Light RN documented as of this encounter Visit Diagnoses Not on filedocumented in this encounter Additional Health Concerns Assessment Noted Time PHQ-9 Depression Total Score: 0 07/06/20 21 4:06 PM CAFE SITE ATTENDANT documented as of this encounter Care Teams Deck Hand Relationship Specialty Start Date End Date Servando Torre MD [address] [place] [address] [address] [place] [address] PCP - General FAMILY PRACTICE 07/17/22 documented as of this encounter
--- OUTSIDE RECORDS SUMMARY | 2024-08-18 10:36 | XMS_ITS | Encounter Summary ---
Author Organization [facility] Address [address] [facility] [place] [address] [place] [address] Care Team Providers Care Cager Operator Name Role Phone Servando Torre MD Primary Care Provider [phone] Reason for Visit * Treatment/Therapy Plan Authorization (Routine) - Authorized Specialty Diagnoses / Procedures Referred By Angel braswell Referred To Contact Diagnoses Chronic ulcerative colitis, unspecified complication ([facility]/HCC HHS/HCC) Abnormal liver function tests Procedures VEDOLIZUMAB, INJECTION [facility] [address] [place] [address] Phone: tel: [facility] [address] [place] [address] Phone: tel: Referral ID Status Reason Start Date Expiration Date Visits Requested Visits Authorized [id number] Authorized Medication 05/01/2023 08/30/2024 99 99 Encounter Details Date Type Department Care Team (Latest Contact Info) Description 12/11/2023 1:51 PM CDT - 12/11/2023 2:58 PM CDT Hospital Encounter [facility] [address] [place] [address] Josué Cook MD [address] [facility] 8 [place] [address] Discharge Disposition: Home or Self Care (Routine [...] st Contact Info) Description 09/28/2024 2:30 PM TIME CHECKER Appointment [address] [address] Josué Cook MD [address] [facility] 8 [place] [address] documented as of this encounter Goals Goal [...] <0.29 <0.29 mg/dL 12/11/2023 7:54 PM CDT [facility] 12/11/2023 1:56 PM CDT Josué Cook MD LABORATORY Final Result [facility] [address] [place] [id number], [place] [phone] * (ABNORMAL) CBC W/DIFF AUTOMATED (12/11/2023 1:56 PM CDT) Pathologist [facility] WBC 8.77 4.4 - 11.0 x10'3/uL 12/11/2023 2:32 PM CDT [facility] RBC 4.29(L) 4.50 - 5.10 x10'6/uL 12/11/2023 2:32 PM CDT [facility] HGB 13.2 12.3 - 15.3 G/DL 12/11/2023 2:32 PM CDT [facility] HCT 40.2 35.9 - 44.6 % 12/11/2023 2:32 PM CDT [facility] MCV 93.7 80.0 - 96.0 FL 12/11/2023 2:32 PM CDT [facility] MCH 30.8 25.3 - 30.9 PG 12/11/2023 2:32 PM CDT [facility] MCHC 32.8 31.0 - 34.1 G/DL 12/11/2023 2:32 PM CDT [facility] RDW 13.5 12.4 - 15.1 % 12/11/2023 2:32 PM CDT [facility] PLT 237 151 - 353 x10'3/uL 12/11/2023 2:32 PM CDT [facility] MPV 9.2(L) 9.6 - 12.0 FL 12/11/2023 2:32 PM CDT [facility] RBC MORPHOLOGY NORMAL 12/11/2023 2:32 PM CDT [facility] PLT MORPH. NORMAL 12/11/2023 2:32 PM T [facility] WBC MORPHOLOGY NORMAL 12/11/2023 2:32 PM CDT [facility] LYMPHOCYTES % 22.3 15.8 - 45.0 % 12/11/2023 2:32 PM T [facility] NEUTROPHILS % 63.6 42.1 - 71.9 % 12/11/2023 2:32 PM CDT [facility] MONOCYTES % 9.6 5.7 - 12.5 % 12/11/2023 2:32 PM CDT [facility] EOSINOPHILS 3.2 0.0 - 5.6 % 12/11/2023 2:32 PM CDT [facility] BASOPHILS 0.7 0.0 - 1.3 % 12/11/2023 2:32 PM CDT [facility] ABS. NEUTROPHILS 5.58 1.40 - 6.00 x10'3/uL 12/11/2023 2:32 PM CDT [facility] IMMATURE GRANS % 0.6(H) 0.0 - 0.5 % 12/11/2023 2:32 PM CDT [facility] ABS. LYMPHOCYTES 1.96 0.80 - 4.70 x10'3/uL 12/11/2023 2:32 PM CDT [facility] 12/11/2023 1:56 PM CDT us Josué Cook MD LABORATORY Final Result [facility] [address] [place] [address], * (ABNORMAL) COMPREHENSIVE METABOLIC PANEL (12/11/2023 1:56 PM CDT) GLUCOSE 121(H) 70 - 99 MG/DL 12/11/2023 2:43 PM CDT [facility] BUN 19(H) 7 - 18 MG/DL 12/11/2023 2:43 PM CDT [facility] CREATININE S/P/B 1.36(H) 0.55 - 1.02 MG/DL 12/11/2023 2:43 PM CDT [facility] SODIUM S/P/B 137 136 - 145 MMOL/L 12/11/2023 2:43 PM CDT [facility] POTASSIUM S/P/B 3.8 3.5 - 5.1 MMOL/L 12/11/2023 2:43 PM CDT [facility] CHLORIDE S/P/B 102 100 - 108 MMOL/L 12/11/2023 2:43 PM CDT [facility] CO2 30.9 21 - 32 MMOL/L 12/11/2023 2:43 PM CDT [facility] CALCIUM S/P/B 8.9 8.5 - 10.1 MG/DL 12/11/2023 2:43 PM [facility] BILIRUBIN TOTAL S/P/B 0.2 0.2 - 1.2 MG/DL 12/11/2023 2:43 PM [facility] TOTAL PROTEIN S/P/B 6.2(L) 6.4 - 8.2 G/DL 12/11/2023 2:43 PM [facility] ALBUMIN S/P/B 3.2(L) 3.4 - 5.0 G/DL 12/11/2023 2:43 PM [facility] AST 7(L) 15 - 37 U/L 12/11/2023 2:43 PM [facility] ALT 17 14 - 55 U/L 12/11/2023 2:43 PM [facility] ALKALINE PHOSPHATASE S/P/B 98 50 - 136 U/L 12/11/2023 2:43 PM [facility] ANION GAP 4.1(L) 5 - 15 MMOL/L 12/11/2023 2:43 PM [facility] BUN CREATININE RATIO 14.0 6 - 26 12/11/2023 2:43 PM [facility] A/G RATIO 1.1 1.0 - 2.0 RATIO 12/11/2023 2:43 PM [facility] GFR ESTIMATE 39(L) >90 ML/MIN/1.7 3 M2 12/11/2023 2:43 PM [facility] Comment: NOTE: eGFR is not calculated for patients <18 years of age. This is an estimated GFR calculation using the new CKD EPI creatinine equation without race and so does not require a correction factor for race. This estimated GFR should not be used for calculating drug doses. 12/11/2023 1:56 PM CDT Josué Cook MD LABORATORY Final Result [facility] [address] [place] [address], [place] [phone] documented in this encounter Visit Diagnoses Diagnosis [...] Total Score: 0 07/06/20 21 4:06 PM TIME CHECKER documented as of this encounter Care Teams Cager Operator Relationship Specialty Start Date End Date Servando Torre MD [address] [facility] [address] [place] [address] PCP - General FAMILY PRACTICE 07/17/22 documented as of this encounter
--- OUTSIDE RECORDS SUMMARY | 2024-08-18 10:36 | XMS_ITS | Encounter Summary ---
Author Organization [facility] Address [address] [facility] [place] [address] [place] [address] Care Team Providers Care Accounts Executive Name Role Phone Servando Torre MD Primary Care Provider [phone] Reason for Visit * Treatment/Therapy Plan Authorization (Routine) - Authorized Specialty Diagnoses / Procedures Referred By Angel braswell Referred To Contact Diagnoses Chronic ulcerative colitis, unspecified complication ([facility]/HCC HHS/HCC) Abnormal liver function tests Procedures VEDOLIZUMAB, INJECTION [facility] [address] [place] [address] Phone: tel: [facility] [address] [place] [address] Phone: tel: Referral ID Status Reason Start Date Expiration Date Visits Requested Visits Authorized [id number] Authorized Medication 05/01/2023 08/30/2024 99 99 Encounter Details Date Type Department Care Team (Latest Contact Info) Description 05/28/2024 1:43 PM CDT - 05/28/2024 2:55 PM CDT Hospital Encounter [facility] [address] [place] [address] Josué Cook MD [address] [facility] 8 [place] [address] Discharge Disposition: Home or Self Care (Routine [...] st Contact Info) Description 09/28/2024 2:30 PM INTERNAL CONSULTANT Appointment [facility] [address] [place], [place] [id number] Josué Cook MD [address] [address] documented as of this encounter Goals Goal Patient Goal Type Associated Problems Recent Progress Patient-Stated? Author HOME TO INDEPENDENT [facility] Vannessa Light RN documented as [...] <0.29 <0.29 mg/dL 05/28/2024 8:37 PM CDT [facility] 05/28/2024 2:00 PM CDT us Anas K Gremida MD LABORATORY Final Result [facility] [address] [place] [address], * (ABNORMAL) CBC W/DIFF AUTOMATED (05/28/2024 2:00 PM CDT) WBC 10.79 4.4 - 11.0 x10'3/uL 05/28/2024 2:34 PM CDT [facility] RBC 4.65 4.50 - 5.10 x10'6/uL 05/28/2024 2:34 PM CDT [facility] HGB 13.6 12.3 - 15.3 G/DL 05/28/2024 2:34 PM CDT [facility] HCT 42.1 35.9 - 44.6 % 05/28/2024 2:34 PM CDT [facility] MCV 90.5 80.0 - 96.0 FL 05/28/2024 2:34 PM CDT [facility] MCH 29.2 25.3 - 30.9 PG 05/28/2024 2:34 PM CDT [facility] MCHC 32.3 31.0 - 34.1 G/DL 05/28/2024 2:34 PM CDT [facility] RDW 13.2 12.4 - 15.1 % 05/28/2024 2:34 PM CDT [facility] PLT 288 151 - 353 x10'3/uL 05/28/2024 2:34 PM CDT [facility] MPV 9.7 9.6 - 12.0 FL 05/28/2024 2:34 PM CDT [facility] RBC MORPHOLOGY NORMAL 05/28/2024 2:34 PM CDT [facility] PLT MORPH. NORMAL 05/28/2024 2:34 PM CDT [facility] WBC MORPHOLOGY NORMAL 05/28/2024 2:34 PM CDT [facility] LYMPHOCYTES % 19.5 15.8 - 45.0 % 05/28/2024 2:34 PM CDT [facility] NEUTROPHILS % 70.3 42.1 - 71.9 % 05/28/2024 2:34 PM CDT [facility] MONOCYTES % 7.3 5.7 - 12.5 % 05/28/2024 2:34 PM CDT [facility] EOSINOPHILS 1.9 0.0 - 5.6 % 05/28/2024 2:34 PM CDT [facility] BASOPHILS 0.6 0.0 - 1.3 % 05/28/2024 2:34 PM CDT [facility] ABS. NEUTROPHILS 7.59(H) 1.40 - 6.00 x10'3/uL 05/28/2024 2:34 PM CDT [facility] IMMATURE GRANS % 0.4 0.0 - 0.5 % 05/28/2024 2:34 PM CDT [facility] ABS. LYMPHOCYTES 2.10 0.80 - 4.70 x10'3/uL 05/28/2024 2:34 PM CDT [facility] 05/28/2024 2:00 PM CDT us Josué Cook MD LABORATORY Final Result [facility] [address] [place] [address], [place] [phone] * (ABNORMAL) COMPREHENSIVE METABOLIC PANEL (05/28/2024 2:00 PM CDT) Pathologist [facility] GLUCOSE 145(H) 70 - 99 MG/DL 05/28/2024 2:53 PM T [facility] BUN 16 7 - 18 MG/DL 05/28/2024 2:53 PM T [facility] CREATININE S/P/B 1.12(H) 0.55 - 1.02 MG/DL 05/28/2024 2:53 PM T [facility] SODIUM S/P/B 139 136 - 145 MMOL/L 05/28/2024 2:53 PM T [facility] POTASSIUM S/P/B 4.0 3.5 - 5.1 MMOL/L 05/28/2024 2:53 PM T [facility] CHLORIDE S/P/B 102 100 - 108 MMOL/L 05/28/2024 2:53 PM T [facility] CO2 28.6 21 - 32 MMOL/L 05/28/2024 2:53 PM T [facility] CALCIUM S/P/B 9.7 8.5 - 10.1 MG/DL 05/28/2024 2:53 PM T [facility] BILIRUBIN TOTAL S/P/B 0.2 0.2 - 1.2 MG/DL 05/28/2024 2:53 PM T [facility] TOTAL PROTEIN S/P/B 6.9 6.4 - 8.2 G/DL 05/28/2024 2:53 PM T [facility] ALBUMIN S/P/B 3.4 3.4 - 5.0 G/DL 05/28/2024 2:53 PM T [facility] AST 19 15 - 37 U/L 05/28/2024 2:53 PM T [facility] ALT 19 14 - 55 U/L 05/28/2024 2:53 PM T [facility] ALKALINE PHOSPHATASE S/P/B 117 50 - 136 U/L 05/28/2024 2:53 PM CDT [facility] ANION GAP 8.4 5 - 15 MMOL/L 05/28/2024 2:53 PM CDT [facility] BUN CREATININE RATIO 14.3 6 - 26 05/28/2024 2:53 PM CDT [facility] A/G RATIO 1.0 1.0 - 2.0 RATIO 05/28/2024 2:53 PM CDT [facility] GFR ESTIMATE 49(L) >90 ML/MIN/1.7 3 M2 05/28/2024 2:53 PM CDT [facility] Comment: NOTE: eGFR is not calculated for patients <18 years of age. This is an estimated GFR calculation using the new CKD EPI creatinine equation without race and so does not require a correction factor for race. This estimated GFR should not be used for calculating drug doses. 05/28/2024 2:00 PM CDT us Josué Cook MD LABORATORY Final Result [facility] [address] [place] [address], [place] [phone] * HEPATITIS B CORE ANTIBODY (05/28/2024 2:00 PM CDT) HEP B CORE TOTAL AB NON-REACTI VE NON-REACTI VE 05/28/2024 9:04 PM CDT [facility] 05/28/2024 2:00 PM CDT us Josué Cook MD LABORATORY Final Result [facility] [address] [place] [address], [place] [phone] * HEPATITIS B SURFACE ANTIBODY (05/28/2024 2:00 PM CDT) HEP B SURFACE AB NON-REACTI VE 05/28/2024 11:01 PM CDT [facility] 05/28/2024 2:00 PM CDT us Josué Cook MD LABORATORY Final Result [facility] [address] [place] [address], [place] [phone] * HEPATITIS B SURFACE AG, EIA (05/28/2024 2:00 PM CDT) HEPATITIS B SURFACE AG NON-REACTI VE NON-REACTI VE 05/28/2024 8:34 PM CDT [facility] 05/28/2024 2:00 PM CDT us Josué Cook MD LABORATORY Final Result Performing Organization Address City/[facility]/ZIP Co de Phone Number [facility] [address] [place] [address], [place] [phone] * QUANTIFERON TBGOLD TUBERCULOSIS TEST (05/28/2024 2:00 PM CDT) TB1 AG MINUS NIL 0.01 IU/ML 05/31/20 24 1:56 PM INTERNAL CONSULTANT [facility] TB2 AG MINUS NIL 0.04 IU/ML 05/31/20 24 1:56 PM INTERNAL CONSULTANT [facility] TB QUANTIFERON NEGATIVE NEGATIVE 05/31/2024 1:56 PM INTERNAL CONSULTANT [facility] TB INTERPRETATION M. tuberculosis infection unlikely but cannot be excluded especially when any illness is consistent with TB disease and/or likelihood of progression to disease is increased. ?? In patients at high risk to M. tuberculosis infection, a second test should be considered. 05/31/2024 1:56 PM INTERNAL CONSULTANT [facility] 05/28/2024 2:00 PM CDT Josué Cook MD LABORATORY Final Result [facility] [address] [place] [address], [id number] documented in this encounter Visit Diagnoses Diagnosis [...] Score: 0 07/06/20 21 4:06 PM INTERNAL CONSULTANT documented as of this encounter Care Teams Accounts Executive Relationship Specialty Start Date End Date Servando Torre MD [address] [place] [address] [address] [place] [address] PCP - General FAMILY PRACTICE 07/17/22 documented as of this encounter
--- OUTSIDE RECORDS SUMMARY | 2024-08-18 10:36 | XMS_ITS | Encounter Summary ---
Author Organization [facility] [place] Address [address] [place] [address] [place] [address] Care Team Providers Care Med Spec Name Role Phone Servando Torre MD Primary Care Provider [phone] Reason for Visit * Treatment/Therapy Plan Authorization (Routine) - Authorized Specialty Diagnoses / Procedures Referred By Angel braswell Referred To Contact Diagnoses Chronic ulcerative colitis, unspecified complication ([facility]/HCC HHS/HCC) Abnormal liver function tests Procedures VEDOLIZUMAB, INJECTION [facility] [address] [place] [address] Phone: tel: [facility] [address] [place] [address] Phone: tel: Referral ID Status Reason Start Date Expiration Date Visits Requested Visits Authorized [id number] Authorized Medication 05/01/2023 08/30/2024 99 99 Encounter Details Date Type Department Care Team (Latest Contact Info) Description 08/03/2024 2:16 PM TILE DECORATOR - 08/03/2024 3:00 PM TILE DECORATOR Hospital Encounter [facility] [address] [place], [place] [id number] Josué oCok MD [address] [facility] [address] [place] [address] Discharge Disposition: Home or Self Care (Routine [...] Comments Blood Pressure 129/56 08/03/2024 2:46 PM TILE DECORATOR Pulse - - Temperature 36.7 ??C (98 ??F) 08/03/2024 1:44 PM TILE DECORATOR Respiratory Rate - - Oxygen Saturation 97% 08/03/2024 1:42 PM TILE DECORATOR Inhaled Oxygen Concentration - - Weight - [...] Progress Notes * Varsha Christie RN - 08/03/2024 3:00 PM CST PT here for Entyvio, tolerated well. DECORATOR documented in this encounter Plan of Treatment Upcoming Encounters Date Type Department Care Team (Late st Contact Info) Description 09/28/2024 2:30 PM TILE DECORATOR Appointment [facility] [address] [address] Josué Cook MD [address] [facility] [address] [place] [address] documented as of this encounter Goals Goal Patient Goal Type Associated Problems Recent Progress Patient-Stated? Author HOME TO [facility]DEP[facility]IV[facility] General No Vannessa Blackwell RN documented as of this encounter Procedures Procedure Name Priority Date/Time Associated Diagnosis Comments COMPREHENSIVE METABOLIC PANEL Routine 08/03/2024 1:30 PM TILE DECORATOR Chronic ulcerative colitis, unspecified complication (CMS/HCC HHS/HCC) Abnormal liver function tests C-REACTIVE PROTEIN Routine 08/03/2024 1: 30 PM TILE DECORATOR Chronic ulcerative colitis, unspecified complication (CMS/HCC HHS/HCC) Abnormal liver function tests CBC W/DIFF AUTOMATED Routine 08/03/2024 1:30 PM TILE DECORATOR Chronic ulcerative colitis, unspecified complication (CMS/HCC HHS/HCC) Abnormal liver function tests documented in this encounter Results * C-REACTIVE PROTEIN (08/03/2024 1:30 PM TILE DECORATOR) Pathologist [facility] C-REACTIVE PROTEIN <0.29 <0.29 mg/dL 08/03/2024 10:[address] [facility] 08/03/2024 1:30 PM TILE DECORATOR Josué Cook MD LABORATORY Final Result [facility] [address] [place] [address], [place] [phone] * (ABNORMAL) CBC W/DIFF AUTOMATED (08/03/2024 1:30 PM TILE DECORATOR) Pathologist [facility] WBC 8.96 4.4 - 11.0 x10'3/uL 08/03/2024 2:20 PM TILE DECORATOR [facility] RBC 4.72 4.50 - 5.10 x10'6/uL 08/03/2024 2:20 PM TILE DECORATOR [facility] HGB 13.7 12.3 - 15.3 G/DL 08/03/2024 2:20 PM TILE DECORATOR [facility] HCT 42.2 35.9 - 44.6 % 08/03/2024 2:20 PM [facility] MCV 89.4 80.0 - 96.0 FL 08/03/2024 2:20 PM [facility] MCH 29.0 25.3 - 30.9 PG 08/03/2024 2:20 PM [facility] MCHC 32.5 31.0 - 34.1 G/DL 08/03/2024 2:20 PM [facility] RDW 13.8 12.4 - 15.1 % 08/03/2024 2:20 PM [facility] PLT 278 151 - 353 x10'3/uL 08/03/2024 2:20 PM [facility] MPV 9.0(L) 9.6 - 12.0 FL 08/03/2024 2:20 PM [facility] RBC MORPHOLOGY NORMAL 08/03/2024 2:20 PM [facility] PLT MORPH. NORMAL 08/03/2024 2:20 PM [facility] WBC MORPHOLOGY NORMAL 08/03/2024 2:20 PM [facility] LYMPHOCYTES % 22.2 15.8 - 45.0 % 08/03/2024 2:20 PM [facility] NEUTROPHILS % 67.6 42.1 - 71.9 % 08/03/2024 2:20 PM [facility] MONOCYTES % 9.2 5.7 - 12.5 % 08/03/2024 2:20 PM [facility] EOSINOPHILS 0.0 0.0 - 5.6 % 08/03/2024 2:20 PM [facility] BASOPHILS 0.6 0.0 - 1.3 % 08/03/2024 2:20 PM [facility] ABS. NEUTROPHILS 6.06(H) 1.40 - 6.00 x10'3/uL 08/03/2024 2:20 PM TILE DECORATOR [facility] IMMATURE GRANS % 0.4 0.0 - 0.5 % 08/03/2024 2:20 PM [facility] ABS. LYMPHOCYTES 1.99 0.80 - 4.70 x10'3/uL 08/03/2024 2:20 PM [facility] 08/03/2024 1:30 PM TILE DECORATOR us Josué Cook MD LABORATORY Final Result [facility] [address] [place] [address], [place] [phone] * (ABNORMAL) COMPREHENSIVE METABOLIC PANEL (08/03/2024 1:30 PM TILE DECORATOR) GLUCOSE 160(H) 70 - 99 MG/DL 08/03/2024 2:57 PM [facility] BUN 18 7 - 18 MG/DL 08/03/2024 2:57 PM [facility] CREATININE S/P/B 1.21(H) 0.55 - 1.02 MG/DL 08/03/2024 2:57 PM [facility] SODIUM S/P/B 142 136 - 145 MMOL/L 08/03/2024 2:57 PM [facility] POTASSIUM S/P/B 4.0 3.5 - 5.1 MMOL/L 08/03/2024 2:57 PM [facility] CHLORIDE S/P/B 105 100 - 108 MMOL/L 08/03/2024 2:57 PM [facility] CO2 25.9 21 - 32 MMOL/L 08/03/2024 2:57 PM [facility] CALCIUM S/P/B 9.7 8.5 - 10.1 MG/DL 08/03/2024 2:57 PM [facility] BILIRUBIN TOTAL S/P/B 0.4 0.2 - 1.2 MG/DL 08/03/2024 2:57 PM [facility] TOTAL PROTEIN S/P/B 6.8 6.4 - 8.2 G/DL 08/03/2024 2:57 PM [facility] ALBUMIN S/P/B 3.7 3.4 - 5.0 G/DL 08/03/2024 2:57 PM [facility] AST 16 15 - 37 U/L 08/03/2024 2:57 PM [facility] ALT 17 14 - 55 U/L 08/03/2024 2:57 PM [facility] ALKALINE PHOSPHATASE S/P/B 120 50 - 136 U/L 08/03/2024 2:57 PM [facility] ANION GAP 11.1 5 - 15 MMOL/L 08/03/2024 2:57 PM [facility] BUN CREATININE RATIO 14.9 6 - 26 08/03/2024 2:57 PM [facility] A/G RATIO 1.2 1.0 - 2.0 RATIO 08/03/2024 2:57 PM [facility] GFR ESTIMATE 45(L) >90 ML/MIN/1.7 3 M2 08/03/2024 2:57 PM [facility] Comment: NOTE: eGFR is not calculated for patients <18 years of age. This is an estimated GFR calculation using the new CKD EPI creatinine equation without race and so does not require a correction factor for race. This estimated GFR should not be used for calculating drug doses. 08/03/2024 1:30 PM TILE DECORATOR us Josué Cook MD LABORATORY Final Result [facility] [address] [place] [address], [place] [phone] documented in this encounter Visit Diagnoses Diagnosis [...] Other, pre med, 1 dose, Starting on Fri08/03/24 at 1351, Until Fri08/03/24 at 1704, Maximum dose of acetaminophen is 4000 mg from all sources in 24 hours.Indications:Chronic ulcerative colitis, unspecified complication (CMS/HCC HHS/HCC),Abnormal liver function tests diphenhydrAMINE (BENADRYL) capsule 25 mg 25 mg, Oral, Once as needed, Other, premed, 1 dose, Starting on Fri08/03/24 at 1351, Until Fri08/03/24 at 1704Indications:Chronic ulcerative colitis, unspecified complication (CMS/HCC HHS/HCC),Abnormal liver function tests diphenhydrAMINE (BENADRYL) injection 25 mg 25 mg, Intravenous, Once as needed, Severe hypersensitivity reaction (dyspnea, bronchospasm, urticaria, flushing, rash, and increased heart rate), Starting on Fri08/03/24 at 1329, Until Fri08/03/24 at 1704, For IV administration, give no faster than 25 mg/min. For severe hypersensitivity reaction (dyspnea, bronchospasm, urticaria, flushing, rash, and increased heart rate).Indications:Chronic ulcerative colitis, unspecified complication (CMS/HCC HHS/HCC),Abnormal liver function tests diphenhydrAMINE (BENADRYL) injection 50 mg 50 mg, Intravenous, Every 15 min PRN, Other, moderate/ severe reaction, 2 doses, Starting on Fri08/03/24 at 1329, Until Fri08/03/24 at 1704, For IV administration, give no faster than 25 mg/min.Indications:Chronic ulcerative colitis, unspecified complication (CMS/HCC HHS/HCC),Abnormal liver function tests EPINEPHrine PF (ADRENALIN) 1 mg/mL injection 0.3 mg 0.3 mg, Intramuscular, Every 5 min PRN, Other, Severe hypersensitivity reaction (dyspnea, bronchospasm, urticaria, flushing, rash, and increased heart rate), 3 doses, Starting on Fri08/03/24 at 1329, Until Fri08/03/24 at 1704, See original order - May repeat x 1 prn if hypotension does not resolve within 15 mins Severe hypersensitivity reaction (dyspnea, bronchospasm, urticaria, flushing, rash, and increased heart rate)Indications:Chronic ulcerative colitis, unspecified complication (CMS/HCC HHS/HCC),Abnormal liver function tests famotidine (PF) (PEPCID) injection 20 mg 20 mg, Intravenous, Every 15 min PRN, For mild / moderate or severe reactions, 2 doses, Starting on Fri08/03/24 at 1329, Until Fri08/03/24 at 1704, IV Push over 2 minutesIndications:Chronic ulcerative colitis, unspecified complication (CMS/HCC HHS/HCC),Abnormal liver function tests methylPREDNISolone sodium succinate (SOLU-Medrol) injection 125 mg 125 mg, Intravenous, Every 15 min PRN, For moderate/severe reaction, 2 doses, Starting on Fri08/03/24 at 1329, Until Fri08/03/24 at 1704, If ordered IV, administer into a vein [...] over 30 Minutes, Once, 1 dose, On Fri08/03/24 at 1400, Provider Instruction: Therapy should not be continued after week 14 if no therapeutic benefit is seen. Do not administer IV push or bolus. Flush line with 30 mL NS after completion.Indications:Chronic ulcerative colitis, unspecified complication (CMS/HCC HHS/HCC),Abnormal liver function tests New Bag 08/03/2024 2:12 PM TILE DECORATOR 300 mg 500 mL/hr documented in this encounter Active and Recently Administered Medications Times are shown in TILE DECORATOR. Scheduled Medication Order 08/01/2024 08/02/2024 08/03/2024 vedolizumab (ENTYVIO) 300 mg in sodium chloride 0.9 % 250 mL IVPB (COMPLETED) 300 mg, Intravenous, Administer over 30 Minutes, Once, 1 dose, On Fri08/03/24 at 1400, Provider Instruction: Therapy should not be continued after week 14 if no therapeutic benefit is seen. Do not administer IV push or bolus. Flush line with 30 mL NS after completion. 1412 (New Bag - Prov ider: Varsha Christie RN)1442 (Infusion Stop Time - Provider: Varsha Christie RN) PRN Medication Order 08/01/2024 08/02/2024 08/03/2024 acetaminophen (TYLENOL) tablet 650 mg 650 mg, Oral, Once as needed, Other, pre med, 1 dose, Starting on Fri08/03/24 at 1351, Until Fri08/03/24 at 1704, Maximum dose of acetaminophen is 4000 mg from all sources in 24 hours. 1418 (Not Given - Pr ovider: Varsha Christie RN - Reason: Patient already took - Comment: tookk at 1255) diphenhydrAMINE (BENADRYL) capsule 25 mg 25 mg, Oral, Once as needed, Other, premed, 1 dose, Starting on Fri08/03/24 at 1351, Until Tu08/03/24 at 1704 1418 (Not Given - Pr ovider: Varsha Christie RN - Reason: Patient already took - Comment: took at 1255) diphenhydrAMINE (BENADRYL) injection 25 mg 25 mg, Intravenous, Once as needed, Severe hypersensitivity reaction (dyspnea, bronchospasm, urticaria, flushing, rash, and increased heart rate), Starting on Fri08/03/24 at 1329, Until Tu08/03/24 at 1704, For IV administration, give no faster than 25 mg/min. For severe hypersensitivity reaction (dyspnea, bronchospasm, urticaria, flushing, rash, and increased heart rate). 1350 (Not Given - Pr ovider: Varsha Christie RN - Reason: Patient already took - Comment: took at 1255) diphenhydrAMINE (BENADRYL) injection 50 mg 50 mg, Intravenous, Every 15 min PRN, Other, moderate/ severe reaction, 2 doses, Starting on Fri08/03/24 at 1329, Until Fri08/03/24 at 1704, For IV administration, give no faster than 25 mg/min. EPINEPHrine PF (ADRENALIN) 1 mg/mL injection 0.3 mg 0.3 mg, Intramuscular, Every 5 min PRN, Other, Severe hypersensitivity reaction (dyspnea, bronchospasm, urticaria, flushing, rash, and increased heart rate), 3 doses, Starting on Fri08/03/24 at 1329, Until Fri08/03/24 at 1704, See original order - May repeat x 1 prn if hypotension does not resolve within 15 mins Severe hypersensitivity reaction (dyspnea, bronchospasm, urticaria, flushing, rash, and increased heart rate) famotidine (PF) (PEPCID) injection 20 mg 20 mg, Intravenous, Every 15 min PRN, For mild / moderate or severe reactions, 2 doses, Starting on Fri08/03/24 at 1329, Until Tu08/03/24 at 1704, IV Push over 2 minutes methylPREDNISolone sodium succinate (SOLU-Medrol) injection 125 mg 125 mg, Intravenous, Every 15 min PRN, For moderate/severe reaction, 2 doses, Starting on Fri08/03/24 at 1329, Until Fri08/03/24 at 1704, If ordered IV, administer into a vein over 3-15 minutes. Doses >= 2 mg/kg or 250mg should be given by infusion, unless the benefits of IV injection outweigh the risks (life-threatening shock) documented in this encounter Additional Health Concerns Assessment Noted Time PHQ-9 Depression Total Score: 0 07/06/20 4:06 PM TILE DECORATOR documented as of this encounter Care Teams Med Spec Relationship Specialty Start Date End Date Servando Torre MD [address] [place] [address] [address] [place] [address] PCP - General FAMILY PRACTICE 07/17/22 documented as of this encounter
--- OUTSIDE RECORDS SUMMARY | 2024-08-18 10:36 | XMS_ITS | Encounter Summary ---
Author Organization [facility] Address [address] [facility] [place] [address] [place] [address] Care Team Providers Care Nutritionist Public Health Name Role Phone Servando Torre MD Primary Care Provider [phone] Reason for Visit * Treatment/Therapy Plan Authorization (Routine) - Authorized Specialty Diagnoses / Procedures Referred By Angel braswell Referred To Contact Diagnoses Chronic ulcerative colitis, unspecified complication ([facility]/HCC HHS/HCC) Abnormal liver function tests Procedures VEDOLIZUMAB, INJECTION [facility] [address] [place] [address] Phone: tel: [facility] [address] [place] [address] Phone: tel: Referral ID Status Reason Start Date Expiration Date Visits Requested Visits Authorized [id number] Authorized Medication 05/01/2023 08/30/2024 99 99 Encounter Details Date Type Department Care Team (Latest Contact Info) Description 06/10/2023 1:35 PM BLOOD BANK TECHNOLOGIST - 06/10/2023 2:55 PM BLOOD BANK TECHNOLOGIST Hospital Encounter [facility] [address] [place] [address] Josué Cook MD [address] [facility] [address] [place] [address] Discharge Disposition: Home or Self Care (Routine [...] Comments Blood Pressure 162/78 06/10/2023 1:45 PM BLOOD BANK TECHNOLOGIST Pulse - - Temperature - - Respiratory Rate - - Oxygen Saturation 96% 06/10/2023 2:12 PM BLOOD BANK TECHNOLOGIST Inhaled Oxygen Concentration - - Weight - [...] , monitored for 30 mins post infusion D BANK TECHNOLOGIST documented in this encounter Plan of Treatment Upcoming Encounters Date Type Department Care Team (Late st Contact Info) Description 09/28/2024 2:30 PM BLOOD BANK TECHNOLOGIST Appointment [facility] Day [facility] [id number] [place] [address] [phone] Josué Cook MD [address] [address] documented as of this encounter Goals Goal Patient Goal Type Associated Problems Recent Progress Patient-Stated? Author HOME TO [facility] Vannessa Light RN documented as of this encounter Procedures Procedure Name Priority Date/Time Associated Diagnosis Comments HEPATITIS E ANTIBODY IGG Routine 06/10/2023 2:30 PM BLOOD BANK TECHNOLOGIST Abnormal liver function tests Chronic ulcerative colitis, unspecified complication (CMS/HCC HHS/HCC) HEPATITIS B POST-VACCINE ANTIBODY Routine 06/10/2023 2:30 PM BLOOD BANK TECHNOLOGIST Abnormal liver function tests Chronic ulcerative colitis, unspecified complication (CMS/HCC HHS/HCC) TBGOLD-TUBERCULOSIS TST CELL MEDIATED IMMUNITY Routine 06/10/2023 2:30 PM BLOOD BANK TECHNOLOGIST Abnormal liver function tests Chronic ulcerative colitis, unspecified complication (CMS/HCC HHS/HCC) PROMETHEUS THIOPURINE METABOLITES Routine 06/10/2023 2:30 PM BLOOD BANK TECHNOLOGIST Abnormal liver function tests Chronic ulcerative colitis, unspecified complication (CMS/HCC HHS/HCC) COMPREHENSIVE METABOLIC PANEL Routine 06/10/2023 2:30 PM BLOOD BANK TECHNOLOGIST Abnormal liver function tests Chronic ulcerative colitis, unspecified complication (CMS/HCC HHS/HCC) HEPATITIS B SURFACE AG, EIA Routine 06/10/2023 2:30 PM BLOOD BANK TECHNOLOGIST Abnormal liver function tests Chronic ulcerative colitis, unspecified complication (CMS/HCC HHS/HCC) HEPATITIS B CORE AB IGM Routine 06/10/2023 2:30 PM BLOOD BANK TECHNOLOGIST Abnormal liver function tests Chronic ulcerative colitis, unspecified complication (CMS/HCC HHS/HCC) C-REACTIVE PROTEIN Routine 06/10/2023 2: 30 PM BLOOD BANK TECHNOLOGIST Abnormal liver function tests Chronic ulcerative colitis, unspecified complication (CMS/HCC HHS/HCC) CBC W/DIFF AUTOMATED Routine 06/10/2023 2:30 PM BLOOD BANK TECHNOLOGIST Abnormal liver function tests Chronic ulcerative colitis, unspecified complication (CMS/HCC HHS/HCC) documented in this encounter Results * C-REACTIVE PROTEIN (06/10/2023 2:30 PM BLOOD BANK TECHNOLOGIST) C-REACTIVE PROTEIN <0.29 <0.29 mg/dL 06/10/2023 7:41 PM BLOOD BANK TECHNOLOGIST [facility] 06/10/2023 2:30 PM BLOOD BANK TECHNOLOGIST Josué Cook MD LABORATORY Final Result [facility] [address] [place] [address], * (ABNORMAL) CBC W/DIFF AUTOMATED (06/10/2023 2:30 PM BLOOD BANK TECHNOLOGIST) WBC 6.74 4.4 - 11.0 x10'3/uL 06/10/2023 3:16 PM [facility] RBC 4.08(L) 4.50 - 5.10 x10'6/uL 06/10/2023 3:16 PM [facility] HGB 13.0 12.3 - 15.3 G/DL 06/10/2023 3:16 PM [facility] HCT 39.3 35.9 - 44.6 % 06/10/2023 3:16 PM [facility] MCV 96.3(H) 80.0 - 96.0 FL 06/10/2023 3:16 PM [facility] MCH 31.9(H) 25.3 - 30.9 PG 06/10/2023 3:16 PM BLOOD BANK TECHNOLOGIST [facility] MCHC 33.1 31.0 - 34.1 G/DL 06/10/2023 3:16 PM [facility] RDW 14.3 12.4 - 15.1 % 06/10/2023 3:16 PM [facility] PLT 255 151 - 353 x10'3/uL 06/10/2023 3:16 PM [facility] MPV 9.2(L) 9.6 - 12.0 FL 06/10/2023 3:16 PM [facility] RBC MORPHOLOGY NORMAL 06/10/2023 3:16 PM [facility] PLT MORPH. NORMAL 06/10/2023 3:16 PM [facility] WBC MORPHOLOGY NORMAL 06/10/2023 3:16 PM BLOOD BANK TECHNOLOGIST [facility] LYMPHOCYTES % 28.2 15.8 - 45.0 % 06/10/2023 3:16 PM [facility] NEUTROPHILS % 58.5 42.1 - 71.9 % 06/10/2023 3:16 PM [facility] MONOCYTES % 9.3 5.7 - 12.5 % 06/10/2023 3:16 PM [facility] EOSINOPHILS 3.0 0.0 - 5.6 % 06/10/2023 3:16 PM [facility] BASOPHILS 0.6 0.0 - 1.3 % 06/10/2023 3:16 PM [facility] ABS. NEUTROPHILS 3.94 1.40 - 6.00 x10'3/uL 06/10/2023 3:16 PM [facility] IMMATURE GRANS % 0.4 0.0 - 0.5 % 06/10/2023 3:16 PM [facility] ABS. LYMPHOCYTES 1.90 0.80 - 4.70 x10'3/uL 06/10/2023 3:16 PM [facility] 06/10/2023 2:30 PM BLOOD BANK TECHNOLOGIST us Josué Cook MD LABORATORY Final Result [facility] [address] [place] [address], [place] [phone] * (ABNORMAL) COMPREHENSIVE METABOLIC PANEL (06/10/2023 2:30 PM BLOOD BANK TECHNOLOGIST) [facility] GLUCOSE 101(H) 70 - 99 MG/DL 06/10/2023 3:15 PM [facility] BUN 14 7 - 18 MG/DL 06/10/2023 3:15 PM [facility] CREATININE S/P/B 0.92 0.55 - 1.02 MG/DL 06/10/2023 3:15 PM [facility] SODIUM S/P/B 141 136 - 145 MMOL/L 06/10/2023 3:15 PM [facility] POTASSIUM S/P/B 4.2 3.5 - 5.1 MMOL/L 06/10/2023 3:15 PM [facility] CHLORIDE S/P/B 104 100 - 108 MMOL/L 06/10/2023 3:15 PM [facility] CO2 32.4(H) 21 - 32 MMOL/L 06/10/2023 3:15 PM [facility] CALCIUM S/P/B 9.7 8.5 - 10.1 MG/DL 06/10/2023 3:15 PM [facility] BILIRUBIN TOTAL S/P/B 0.7 0.2 - 1.2 MG/DL 06/10/2023 3:15 PM [facility] TOTAL PROTEIN S/P/B 6.7 6.4 - 8.2 G/DL 06/10/2023 3:15 PM [facility] ALBUMIN S/P/B 3.4 3.4 - 5.0 G/DL 06/10/2023 3:15 PM [facility] AST 22 15 - 37 U/L 06/10/2023 3:15 PM [facility] ALT 28 14 - 55 U/L 06/10/2023 3:15 PM BLOOD BANK TECHNOLOGIST [facility] ALKALINE PHOSPHATASE S/P/B 63 50 - 136 U/L 06/10/2023 3:15 PM BLOOD BANK TECHNOLOGIST [facility] ANION GAP 4.6(L) 5 - 15 MMOL/L 06/10/2023 3:15 PM BLOOD BANK TECHNOLOGIST [facility] BUN CREATININE RATIO 15.2 6 - 26 06/10/2023 3:15 PM BLOOD BANK TECHNOLOGIST [facility] A/G RATIO 1.0 1.0 - 2.0 RATIO 06/10/2023 3:15 PM BLOOD BANK TECHNOLOGIST [facility] GFR ESTIMATE 63(L) >90 ML/MIN/1.7 3 M2 06/10/2023 3:15 PM BLOOD BANK TECHNOLOGIST [facility] Comment: NOTE: eGFR is not calculated for patients <18 years of age. This is an estimated GFR calculation using the new CKD EPI creatinine equation without race and so does not require a correction factor for race. This estimated GFR should not be used for calculating drug doses. 06/10/2023 2:30 PM BLOOD BANK TECHNOLOGIST Josué Cook MD LABORATORY Final Result [facility] [address] [place] [address], * HEPATITIS E ANTIBODY IGG (06/10/2023 2:30 PM BLOOD BANK TECHNOLOGIST) HEPATITIS E IGG NOT DETECTED 023 8:39 PM BLOOD BANK TECHNOLOGIST [employer] [facility] Comment: REFERENCE RANGE: NOT DETECTED [...] analytical performance characteristics have been determined by [employer]. It has not been cleared or approved by FDA. This assay has been validated pursuant to the CLIA regulations and is used for clinical purposes. Test performed by [employer] ? [address], ? [place] [address] ? Associate Professor Of Communication: Lillian Duong MD,PHD,JOVANY Test Reported by [facility], [facility], [address] [place], [place] Gamal Gao M.D., Ph.D., Director of Laboratories , [facility] [id number] 06/10/2023 2:30 PM BLOOD BANK TECHNOLOGIST Josué Cook MD LABORATORY Final Result Performing Organization Address City/[facility]/ZIP Co de Phone Number [facility] [place] [id number] [place], [place] , [place] [phone] * HEPATITIS B CORE AB IGM (06/10/2023 2:30 PM BLOOD BANK TECHNOLOGIST) Pathologist [facility] HEP B CORE IGM NON-REACTI VE NON-REACTI VE 06/10/2023 8:39 PM BLOOD BANK TECHNOLOGIST [facility] 06/10/2023 2:30 PM BLOOD BANK TECHNOLOGIST Josué Cook MD LABORATORY Final Result [facility] [address] [place] [address], [place] [phone] * HEPATITIS B SURFACE AG, EIA (06/10/2023 2:30 PM BLOOD BANK TECHNOLOGIST) HEPATITIS B SURFACE AG NON-REACTI VE NON-REACTI VE 06/10/2023 8:07 PM BLOOD BANK TECHNOLOGIST [facility] 06/10/2023 2:30 PM BLOOD BANK TECHNOLOGIST us Josué Cook MD LABORATORY Final Result Performing Organization Address [facility] Co de Phone Number [facility] [address] [place] [address], [place] [phone] * TBGOLD-TUBERCULOSIS TST CELL MEDIATED IMMUNITY (06/10/2023 2:30 PM BLOOD BANK TECHNOLOGIST) TB1 AG MINUS NIL 0.06 IU/ML 06/11/20 1:11 PM BLOOD BANK TECHNOLOGIST [facility] TB2 AG MINUS NIL 0.08 IU/ML 06/11/20 1:11 PM BLOOD BANK TECHNOLOGIST [facility] TB QUANTIFERON NEGATIVE NEGATIVE 06/11/2023 1:11 PM BLOOD BANK TECHNOLOGIST [facility] TB INTERPRETATION M. tuberculosis infection unlikely but cannot be excluded especially when any illness is consistent with TB disease and/or likelihood of progression to disease is increased. ?? In patients at high risk to M. tuberculosis infection, a second test should be considered. 06/11/2023 1:11 PM BLOOD BANK TECHNOLOGIST [facility] 06/10/2023 2:30 PM BLOOD BANK TECHNOLOGIST us Josué Cook MD LABORATORY Final Result Performing Organization Address City/[facility]/ZIP Co de Phone Number [facility] [address] [place] [address], [place] [phone] [id number] * HEPATITIS B POST-VACCINE ANTIBODY (06/10/2023 2:30 PM BLOOD BANK TECHNOLOGIST) HEP B SURFACE AB <3.10 mIU/mL 06/10/2023 8:52 PM BLOOD BANK TECHNOLOGIST [facility] Comment: REFERENCE RANGE >=12.00 PATIENT DOES NOT HAVE IMMUNITY TO HEPATITIS B VIRUS 06/10/2023 2:30 PM BLOOD BANK TECHNOLOGIST Josué oCok MD LABORATORY Final Result [facility] [address] [place] [address], [place] [phone] * (ABNORMAL) PROMETHEUS THIOPURINE METABOLITES (06/10/2023 2:30 PM BLOOD BANK TECHNOLOGIST) 6-TG 452(H) 235 - 400 06/14/2023 3:36 PM BLOOD BANK TECHNOLOGIST [employer] [facility] Comment: Units: ??pmol/8x10(8)RBC This test was developed and its analytical performance characteristics have been determined by [employer]. It has not been cleared or approved by the FDA. This assay has been validated pursuant to the CLIA regulations and is used for clinical purposes. 6-MMP 8,511(H) <5,700 06/14/2023 3:36 PM BLOOD BANK TECHNOLOGIST [employer] [facility] Comment: Units: ??pmol/8x10(8)RBC These results [...] analytical performance characteristics have been determined by [employer]. It has not been cleared or approved by the FDA. This assay has been validated pursuant to the CLIA regulations and is used for clinical purposes. Test performed by [employer] ? [address] [facility], ? [place] [address] ? Associate Professor Of Communication: NICOLA JOHNSON M.D. Test Reported by [facility], [facility], [address] [place], [place] Gamal Gao M.D., Ph.D., Director of Laboratories , [place] [id number] 06/10/2023 2:30 PM BLOOD BANK TECHNOLOGIST Josué Cook MD LABORATORY Final Result [facility] [address] [place], [place] , [place] [phone] documented in this encounter Visit Diagnoses Diagnosis [...] complication (CMS/HCC HHS/HCC) Given 06/10/2023 2:12 PM BLOOD BANK TECHNOLOGIST 650 mg diphenhydrAMINE (BENADRYL) capsule 25 mg 25 mg, Oral, Once as needed, Other, premed, 1 dose, Starting on Fri06/10/23 at 1337, Until Fri06/10/23 at 1413Indications:Abnormal liver function tests,Chronic ulcerative colitis, unspecified complication (CMS/HCC HHS/HCC) Given 06/10/2023 2:13 PM BLOOD BANK TECHNOLOGIST 25 mg diphenhydrAMINE (BENADRYL) injection 25 mg 25 mg, Intravenous, Once as needed, Severe hypersensitivity reaction (dyspnea, bronchospasm, urticaria, flushing, rash, and increased heart rate), Starting on Fri06/10/23 at 1337, Until Fri06/10/23 at 1803, For IV administration, give no faster than 25 mg/min. For severe hypersensitivity reaction (dyspnea, bronchospasm, urticaria, flushing, rash, and increased heart rate).Indications:Abnormal liver function tests,Chronic ulcerative colitis, unspecified complication ([facility] HHS/HCC) EPINEPHrine [...] liver function tests,Chronic ulcerative colitis, unspecified complication ([facility] HHS/HCC) hydrocortisone sodium succinate (Solu-CORTEF) injection 100 mg 100 mg, Intravenous, Once as needed, Severe hypersensitivity reaction (dyspnea, bronchospasm, urticaria, flushing, rash, and increased heart rate), Starting on Fri06/10/23 at 1337, Until Fri06/10/23 at 1803, Administer over 1-2 minutes. For severe hypersensitivity reaction (dyspnea, bronchospasm, urticaria, flushing, rash, and increased heart rate).Indications:Abnormal liver function tests,Chronic ulcerative colitis, unspecified complication ([facility]/HCC HHS/HCC) vedolizumab (ENTYVIO) 300 mg in sodium [...] liver function tests,Chronic ulcerative colitis, unspecified complication ([facility] HHS/HCC) New Bag 06/10/2023 2:45 PM BLOOD BANK TECHNOLOGIST 300 mg 500 mL/hr documented in this encounter Active and Recently Administered Medications Times are shown in BLOOD BANK TECHNOLOGIST. Scheduled Medication Order 06/08/2023 06/09/2023 06/10/2023 vedolizumab [...] Depression Total Score: 0 07/06/20 4:06 PM BLOOD BANK TECHNOLOGIST documented as of this encounter Care Teams Nutritionist Public Health Relationship Specialty Start Date End Date Servando Torre MD [address] [place] [address] [address] [place] [address] PCP - General FAMILY PRACTICE 07/17/22 documented as of this encounter
--- OUTSIDE RECORDS SUMMARY | 2024-08-18 10:36 | XMS_ITS | Encounter Summary ---
Author Organization [facility] Address [address] [facility] [place] [address] [place] [address] Care Team Providers Care Stock Wetter Name Role Phone Servando Torre MD Primary Care Provider [phone] Reason for Visit * Treatment/Therapy Plan Authorization (Routine) - Authorized Specialty Diagnoses / Procedures Referred By Angel braswell Referred To Contact Diagnoses Chronic ulcerative colitis, unspecified complication ([facility]/HCC HHS/HCC) Abnormal liver function tests Procedures VEDOLIZUMAB, INJECTION [facility] [address] [place] [address] Phone: tel: [facility] [address] [place] [address] Phone: tel: Referral ID Status Reason Start Date Expiration Date Visits Requested Visits Authorized [id number] Authorized Medication 05/01/2023 08/30/2024 99 99 Encounter Details Date Type Department Care Team (Latest Contact Info) Description 02/05/2024 1:49 PM CDT - 02/05/2024 3:15 PM CDT Hospital Encounter [facility] [address] [place] [address] Josué Cook MD [address] [facility] [address] [place] [address] Discharge Disposition: Home or Self Care (Routine [...] st Contact Info) Description 09/28/2024 2:30 PM MEDICAL MASSAGE THERAPIST Appointment [facility] [address] [place], [place] [id number] Josué Cook MD [address] [facility] [address] [place] [address] documented as of this encounter Goals Goal Patient Goal Type Associated Problems Recent Progress Patient-Stated? Author HOME TO [facility] Vannessa Light RN documented [...] <0.29 <0.29 mg/dL 02/05/2024 7:13 PM CDT [facility] 02/05/2024 2:10 PM CDT Josué Cook MD LABORATORY Final Result [facility] [address] [place] [address], [place] [phone] * (ABNORMAL) CBC W/DIFF AUTOMATED (02/05/2024 2:10 PM CDT) WBC 8.60 4.4 - 11.0 x10'3/uL 02/05/2024 2:39 PM CDT [facility] RBC 4.42(L) 4.50 - 5.10 x10'6/uL 02/05/2024 2:39 PM CDT [facility] HGB 13.1 12.3 - 15.3 G/DL 02/05/2024 2:39 PM CDT [facility] HCT 41.1 35.9 - 44.6 % 02/05/2024 2:39 PM CDT [facility] MCV 93.0 80.0 - 96.0 FL 02/05/2024 2:39 PM CDT [facility] MCH 29.6 25.3 - 30.9 PG 02/05/2024 2:39 PM CDT [facility] MCHC 31.9 31.0 - 34.1 G/DL 02/05/2024 2:39 PM CDT [facility] RDW 12.7 12.4 - 15.1 % 02/05/2024 2:39 PM CDT [facility] PLT 247 151 - 353 x10'3/uL 02/05/2024 2:39 PM T [facility] MPV 9.5(L) 9.6 - 12.0 FL 02/05/2024 2:39 PM CDT [facility] RBC MORPHOLOGY NORMAL 02/05/2024 2:39 PM T [facility] PLT MORPH. NORMAL 02/05/2024 2:39 PM CDT [facility] WBC MORPHOLOGY NORMAL 02/05/2024 2:39 PM CDT [facility] LYMPHOCYTES % 22.2 15.8 - 45.0 % 02/05/2024 2:39 PM CDT [facility] NEUTROPHILS % 64.1 42.1 - 71.9 % 02/05/2024 2:39 PM CDT [facility] MONOCYTES % 9.7 5.7 - 12.5 % 02/05/2024 2:39 PM CDT [facility] EOSINOPHILS 2.8 0.0 - 5.6 % 02/05/2024 2:39 PM CDT [facility] BASOPHILS 0.5 0.0 - 1.3 % 02/05/2024 2:39 PM CDT [facility] ABS. NEUTROPHILS 5.52 1.40 - 6.00 x10'3/uL 02/05/2024 2:39 PM CDT [facility] IMMATURE GRANS % 0.7(H) 0.0 - 0.5 % 02/05/2024 2:39 PM CDT [facility] ABS. LYMPHOCYTES 1.91 0.80 - 4.70 x10'3/uL 02/05/2024 2:39 PM CDT [facility] 02/05/2024 2:10 PM CDT Josué Cook MD LABORATORY Final Result [facility] [address] [place] [address], [place] [phone] * (ABNORMAL) COMPREHENSIVE METABOLIC PANEL (02/05/2024 2:10 PM CDT) GLUCOSE 141(H) 70 - 99 MG/DL 02/05/2024 3:19 PM CDT [facility] BUN 19(H) 7 - 18 MG/DL 02/05/2024 3:19 PM CDT [facility] CREATININE S/P/B 1.31(H) 0.55 - 1.02 MG/DL 02/05/2024 3:19 PM CDT [facility] SODIUM S/P/B 140 136 - 145 MMOL/L 02/05/2024 3:19 PM CDT [facility] POTASSIUM S/P/B 4.4 3.5 - 5.1 MMOL/L 02/05/2024 3:19 PM CDT [facility] CHLORIDE S/P/B 105 100 - 108 MMOL/L 02/05/2024 3:19 PM [facility] CO2 31.9 21 - 32 MMOL/L 02/05/2024 3:19 PM [facility] CALCIUM S/P/B 9.5 8.5 - 10.1 MG/DL 02/05/2024 3:19 PM [facility] BILIRUBIN TOTAL S/P/B 0.2 0.2 - 1.2 MG/DL 02/05/2024 3:19 PM [facility] TOTAL PROTEIN S/P/B 6.5 6.4 - 8.2 G/DL 02/05/2024 3:19 PM [facility] ALBUMIN S/P/B 3.4 3.4 - 5.0 G/DL 02/05/2024 3:19 PM [facility] AST 13(L) 15 - 37 U/L 02/05/2024 3:19 PM [facility] ALT 13(L) 14 - 55 U/L 02/05/2024 3:19 PM [facility] ALKALINE PHOSPHATASE S/P/B 102 50 - 136 U/L 02/05/2024 3:19 PM [facility] ANION GAP 3.1(L) 5 - 15 MMOL/L 02/05/2024 3:19 PM [facility] BUN CREATININE RATIO 14.5 6 - 26 02/05/2024 3:19 PM [facility] A/G RATIO 1.1 1.0 - 2.0 RATIO 02/05/2024 3:19 PM [facility] GFR ESTIMATE 41(L) >90 ML/MIN/1.7 3 M2 02/05/2024 3:19 PM [facility] Comment: NOTE: eGFR is not calculated for patients <18 years of age. This is an estimated GFR calculation using the new CKD EPI creatinine equation without race and so does not require a correction factor for race. This estimated GFR should not be used for calculating drug doses. 02/05/2024 2:10 PM CDT Josué Cook MD LABORATORY Final Result [facility] [address] [place] [address], [place] [phone] documented in this encounter Visit Diagnoses Diagnosis [...] Depression Total Score: 0 07/06/20 4:06 PM MEDICAL MASSAGE THERAPIST documented as of this encounter Care Teams Stock Wetter Relationship Specialty Start Date End Date Servando Torre MD [address] [place] [address] [address] [place] [address] PCP - General FAMILY PRACTICE 07/17/22 documented as of this encounter
--- OUTSIDE RECORDS SUMMARY | 2024-08-18 10:36 | XMS_ITS | Encounter Summary ---
Author Organization [facility] Address [address] [facility] [place] [address] [place] [address] Care Team Providers Care Day Treatment Clinician/Art Therapist Name Role Phone Servando Torre MD [...] st Contact Info) Description 09/28/2024 2:30 PM CONVEYOR BELT INSTALLER Appointment [facility] [id number] [place] [address] Josué Cook MD [address] [address] documented as of this encounter Goals Goal Patient Goal Type Associated Problems Recent Progress Patient-Stated? Author HOME TO [facility] Vannessa Light RN documented as of this encounter Visit Diagnoses Not on filedocumented in this encounter Additional Health Concerns Assessment Noted Time PHQ-9 Depression Total Score: 0 07/06/20 21 4:06 PM CONVEYOR BELT INSTALLER documented as of this encounter Care Teams Day Treatment Clinician/Art Therapist Relationship Specialty Start Date End Date Servando Torre MD [address] [place] [address] [address] [place] [address] PCP - General FAMILY PRACTICE 07/17/22 documented as of this encounter
--- OUTSIDE RECORDS SUMMARY | 2024-08-18 10:36 | XMS_ITS | Encounter Summary ---
Author Organization [facility] Address [address] [facility] [place] [address] [place] [address] Care Team Providers Care Food And Beverage Director Name Role Phone Servando Torre MD Primary Care Provider Encounter Details Date Type Department Care Team (Late st Contact Info) Description 04/05/[address] [facility] [address] [place] [address] Derick Martínez MD [address] [facility] [address] [place] [address] Social History Tobacco Use Types Packs/Day Years [...] st Contact Info) Description 09/28/2024 2:30 PM STORAGE WORKER Appointment [address] [address] Josué Cook MD [address] [address] documented as of this encounter Goals Goal Patient Goal Type Associated Problems Recent Progress Patient-Stated? Author HOME TO [facility]DEP[facility]IV[facility] No Vannessa Blackwell RN documented as of this encounter Visit Diagnoses Not on filedocumented in this encounter Additional Health Concerns Assessment Noted Time PHQ-9 Depression Total Score: 0 07/06/20 4:06 PM STORAGE WORKER documented as of this encounter Care Teams Food And Beverage Director Relationship Specialty Start Date End Date Servando Torre MD [address] [place] [address] [address] [place] [address] PCP - General FAMILY PRACTICE 07/17/22 documented as of this encounter
--- OUTSIDE RECORDS SUMMARY | 2024-08-18 10:36 | XMS_ITS | Encounter Summary ---
Author Organization [facility] Address [address] [facility] [place] [address] [place] [address] Care Team Providers Care Trommel Tender Name Role Phone Servando Torre MD [...] st Contact Info) Description 09/28/2024 2:30 PM DIGITAL ACCOUNT SUPERVISOR Appointment [facility] [id number] [place] [address] Josué Cook MD [address] [address] documented as of this encounter Goals Goal Patient Goal Type Associated Problems Recent Progress Patient-Stated? Author HOME TO [facility] Vannessa Light RN documented as of this encounter Visit Diagnoses Not on filedocumented in this encounter Additional Health Concerns Assessment Noted Time PHQ-9 Depression Total Score: 0 07/06/20 21 4:06 PM DIGITAL ACCOUNT SUPERVISOR documented as of this encounter Care Teams Trommel Tender Relationship Specialty Start Date End Date Servando Torre MD [address] [place] [address] [address] [place] [address] PCP - General FAMILY PRACTICE 07/17/22 documented as of this encounter
--- OUTSIDE RECORDS SUMMARY | 2024-08-18 10:36 | XMS_ITS | Encounter Summary ---
Author Organization [facility] Address [address] [facility] [place] [address] [place] [address] Care Team Providers Care Make Ready Worker Name Role Phone Servando Torre MD Primary Care Provider [phone] Encounter Details Date Type Department Care Team [...] st Contact Info) Description 09/28/2024 2:30 PM COMMISSARY CLERK Appointment [facility] [id number] [place] [address] Josué Cook MD [address] [address] documented as of this encounter Goals Goal Patient Goal Type Associated Problems Recent Progress Patient-Stated? Author HOME TO [facility] Vannessa Light RN documented as of this encounter Visit Diagnoses Not on filedocumented in this encounter Additional Health Concerns Assessment Noted Time PHQ-9 Depression Total Score: 0 07/06/20 21 4:06 PM COMMISSARY CLERK documented as of this encounter Care Teams Make Ready Worker Relationship Specialty Start Date End Date Servando Torre MD [address] [place] [address] [address] [place] [address] PCP - General FAMILY PRACTICE 07/17/22 documented as of this encounter
--- OUTSIDE RECORDS SUMMARY | 2024-08-18 10:36 | XMS_ITS | Encounter Summary ---
Author Organization [facility] Address [address] [facility] [place] [address] [place] [address] Care Team Providers Care Head Packager Name Role Phone Servando Torre MD Primary Care Provider [phone] Reason for Visit * Treatment/Therapy Plan Authorization (Routine) - Authorized Specialty Diagnoses / Procedures Referred By Angel braswell Referred To Contact Diagnoses Chronic ulcerative colitis, unspecified complication ([facility]/HCC HHS/HCC) Abnormal liver function tests Procedures VEDOLIZUMAB, INJECTION [facility] [address] [place] [address] Phone: tel: [facility] [address] [place] [address] Phone: tel: Referral ID Status Reason Start Date Expiration Date Visits Requested Visits Authorized [id number] Authorized Medication 05/01/2023 08/30/2024 99 99 Encounter Details Date Type Department Care Team (Latest Contact Info) Description 08/11/2023 2:52 PM IMPLEMENTATION LEAD - 08/11/2023 2:55 PM IMPLEMENTATION LEAD Hospital Encounter [facility] [address] [place], [place] [id number] Josué Cook MD [address] [facility] [address] [place] [address] Discharge Disposition: Home or Self Care (Routine [...] Comments Blood Pressure 132/57 08/11/2023 2:25 PM IMPLEMENTATION LEAD Pulse 63 08/11/2023 2:25 PM IMPLEMENTATION LEAD Temperature 36.5 ??C (97.7 ??F) 08/11/2023 1:15 PM CS T Respiratory Rate 16 08/11/2023 2:25 PM IMPLEMENTATION LEAD Oxygen Saturation 97% 08/11/2023 1:15 PM IMPLEMENTATION LEAD Inhaled Oxygen Concentration - - Weight - [...] st Contact Info) Description 09/28/2024 2:30 PM IMPLEMENTATION LEAD Appointment [facility] [address] [address] Josué Cook MD [address] [address] documented as of this encounter Goals Goal Patient Goal Type Associated Problems Recent Progress Patient-Stated? Author HOME TO [facility]DEPENDENT LIV[facility] No Vannessa Blackwell RN documented as of this encounter Procedures Procedure Name Priority Date/Time Associated Diagnosis Comments COMPREHENSIVE METABOLIC PANEL Routine 08/11/2023 1:25 PM IMPLEMENTATION LEAD Chronic ulcerative colitis, unspecified complication (CMS/HCC HHS/HCC) Abnormal liver function tests C-REACTIVE PROTEIN Routine 08/11/2023 1: 25 PM IMPLEMENTATION LEAD Chronic ulcerative colitis, unspecified complication (CMS/HCC HHS/HCC) Abnormal liver function tests CBC W/DIFF AUTOMATED Routine 08/11/2023 1:25 PM IMPLEMENTATION LEAD Chronic ulcerative colitis, unspecified complication (CMS/HCC HHS/HCC) Abnormal liver function tests documented in this encounter Results * C-REACTIVE PROTEIN (08/11/2023 1:25 PM IMPLEMENTATION LEAD) [facility] C-REACTIVE PROTEIN <0.29 <0.29 mg/dL 08/11/2023 7:[address] [facility] 08/11/2023 1:25 PM IMPLEMENTATION LEAD Josué Cook MD LABORATORY Final Result [facility] [address] [place] [address], * (ABNORMAL) CBC W/DIFF AUTOMATED (08/11/2023 1:25 PM IMPLEMENTATION LEAD) [facility] WBC 8.20 4.4 - 11.0 x10'3/uL 08/11/2023 1:47 PM IMPLEMENTATION LEAD [facility] RBC 4.34(L) 4.50 - 5.10 x10'6/uL 08/11/2023 1:47 PM IMPLEMENTATION LEAD [facility] HGB 13.5 12.3 - 15.3 G/DL 08/11/2023 1:47 PM IMPLEMENTATION LEAD [facility] HCT 41.3 35.9 - 44.6 % 08/11/2023 1:47 PM IMPLEMENTATION LEAD [facility] MCV 95.2 80.0 - 96.0 FL 08/11/2023 1:47 PM IMPLEMENTATION LEAD [facility] MCH 31.1(H) 25.3 - 30.9 PG 08/11/2023 1:47 PM [facility] MCHC 32.7 31.0 - 34.1 G/DL 08/11/2023 1:47 PM [facility] RDW 13.7 12.4 - 15.1 % 08/11/2023 1:47 PM [facility] PLT 228 151 - 353 x10'3/uL 08/11/2023 1:47 PM [facility] MPV 9.1(L) 9.6 - 12.0 FL 08/11/2023 1:47 PM [facility] RBC MORPHOLOGY NORMAL 08/11/2023 1:47 PM [facility] PLT MORPH. NORMAL 08/11/2023 1:47 PM [facility] WBC MORPHOLOGY NORMAL 08/11/2023 1:47 PM [facility] LYMPHOCYTES % 21.7 15.8 - 45.0 % 08/11/2023 1:47 PM [facility] NEUTROPHILS % 63.0 42.1 - 71.9 % 08/11/2023 1:47 PM [facility] MONOCYTES % 9.3 5.7 - 12.5 % 08/11/2023 1:47 PM [facility] EOSINOPHILS 5.1 0.0 - 5.6 % 08/11/2023 1:47 PM [facility] BASOPHILS 0.5 0.0 - 1.3 % 08/11/2023 1:47 PM [facility] ABS. NEUTROPHILS 5.17 1.40 - 6.00 x10'3/uL 08/11/2023 1:47 PM [facility] IMMATURE GRANS % 0.4 0.0 - 0.5 % 08/11/2023 1:47 PM [facility] ABS. LYMPHOCYTES 1.78 0.80 - 4.70 x10'3/uL 08/11/2023 1:47 PM [facility] 08/11/2023 1:25 PM IMPLEMENTATION LEAD Josué Cook MD LABORATORY Final Result [facility] [address] [place] [address], [place] [phone] * (ABNORMAL) COMPREHENSIVE METABOLIC PANEL (08/11/2023 1:25 PM IMPLEMENTATION LEAD) GLUCOSE 121(H) 70 - 99 MG/DL 08/11/2023 2:06 PM [facility] BUN 18 7 - 18 MG/DL 08/11/2023 2:06 PM [facility] CREATININE S/P/B 1.07(H) 0.55 - 1.02 MG/DL 08/11/2023 2:06 PM [facility] SODIUM S/P/B 137 136 - 145 MMOL/L 08/11/2023 2:06 PM [facility] POTASSIUM S/P/B 3.8 3.5 - 5.1 MMOL/L 08/11/2023 2:06 PM [facility] CHLORIDE S/P/B 101 100 - 108 MMOL/L 08/11/2023 2:06 PM [facility] CO2 28.4 21 - 32 MMOL/L 08/11/2023 2:06 PM [facility] CALCIUM S/P/B 9.8 8.5 - 10.1 MG/DL 08/11/2023 2:06 PM [facility] BILIRUBIN TOTAL S/P/B 0.4 0.2 - 1.2 MG/DL 08/11/2023 2:06 PM [facility] TOTAL PROTEIN S/P/B 7.1 6.4 - 8.2 G/DL 08/11/2023 2:06 PM [facility] ALBUMIN S/P/B 3.3(L) 3.4 - 5.0 G/DL 08/11/2023 2:06 PM [facility] AST 17 15 - 37 U/L 08/11/2023 2:06 PM [facility] ALT 27 14 - 55 U/L 08/11/2023 2:06 PM [facility] ALKALINE PHOSPHATASE S/P/B 104 50 - 136 U/L 08/11/2023 2:06 PM [facility] ANION GAP 7.6 5 - 15 MMOL/L 08/11/2023 2:06 PM [facility] BUN CREATININE RATIO 16.8 6 - 26 08/11/2023 2:06 PM [facility] A/G RATIO 0.9(L) 1.0 - 2.0 RATIO 08/11/2023 2:06 PM [facility] GFR ESTIMATE 53(L) >90 ML/MIN/1.7 3 M2 08/11/2023 2:06 PM [facility] Comment: NOTE: eGFR is not calculated for patients <18 years of age. This is an estimated GFR calculation using the new CKD EPI creatinine equation without race and so does not require a correction factor for race. This estimated GFR should not be used for calculating drug doses. 08/11/2023 1:25 PM IMPLEMENTATION LEAD Josué Cook MD LABORATORY Final Result [facility] [address] [place] [address], documented in this encounter Visit Diagnoses Diagnosis [...] liver function tests Given 08/11/2023 1:18 PM IMPLEMENTATION LEAD 650 mg diphenhydrAMINE (BENADRYL) capsule 25 mg 25 mg, Oral, Once as needed, Other, premed, 1 dose, Starting on Fri08/11/23 at 1312, Until Fri08/11/23 at 1318Indications:Chronic ulcerative colitis, unspecified complication (CMS/HCC HHS/HCC),Abnormal liver function tests Given 08/11/2023 1:18 PM IMPLEMENTATION LEAD 25 mg diphenhydrAMINE (BENADRYL) injection 25 mg [...] function tests New Bag 08/11/2023 1:46 PM IMPLEMENTATION LEAD 300 mg 500 mL/hr documented in this encounter Active and Recently Administered Medications Times are shown in IMPLEMENTATION LEAD. Scheduled Medication Order 08/09/2023 08/10/2023 08/11/2023 vedolizumab [...] Depression Total Score: 0 07/06/20 4:06 PM IMPLEMENTATION LEAD documented as of this encounter Care Teams Head Packager Relationship Specialty Start Date End Date Servando Torre MD [address] [place] [address] [address] [place] [address] PCP - General FAMILY PRACTICE 07/17/22 documented as of this encounter
--- OUTSIDE RECORDS SUMMARY | 2024-08-18 10:36 | XMS_ITS | Encounter Summary ---
Author Organization [facility] Address [address] [facility] [place] [address] [place] [address] Care Team Providers Care School Psychometrist Name Role Phone Servando Torre MD Primary Care Provider [phone] Encounter Details Date Type Department Care Team [...] st Contact Info) Description 09/28/2024 2:30 PM TOP LIFT NAILER Appointment [facility] [id number] [place] [address] Josué Cook MD [address] [address] documented as of this encounter Goals Goal Patient Goal Type Associated Problems Recent Progress Patient-Stated? Author HOME TO [facility] Vannessa Light RN documented as of this encounter Visit Diagnoses Not on filedocumented in this encounter Additional Health Concerns Assessment Noted Time PHQ-9 Depression Total Score: 0 07/06/20 21 4:06 PM TOP LIFT NAILER documented as of this encounter Care Teams School Psychometrist Relationship Specialty Start Date End Date Servando Torre MD [address] [place] [address] [address] [place] [address] PCP - General FAMILY PRACTICE 07/17/22 documented as of this encounter
--- OUTSIDE RECORDS SUMMARY | 2024-08-18 10:36 | XMS_ITS | Encounter Summary ---
Author Organization [facility] Address [address] [facility] [place] [address] [place] [address] Care Team Providers Care Hybrid Car Mechanic Name Role Phone Servando Torre MD [...] st Contact Info) Description 09/28/2024 2:30 PM CONVENTION WORKER Appointment [facility] [id number] [place] [address] Josué Cook MD [address] [address] documented as of this encounter Goals Goal Patient Goal Type Associated Problems Recent Progress Patient-Stated? Author HOME TO [facility] Vannessa Light RN documented as of this encounter Visit Diagnoses Not on filedocumented in this encounter Additional Health Concerns Assessment Noted Time PHQ-9 Depression Total Score: 0 07/06/20 21 4:06 PM CONVENTION WORKER documented as of this encounter Care Teams Hybrid Car Mechanic Relationship Specialty Start Date End Date Servando Torre MD [address] [place] [address] [address] [place] [address] PCP - General FAMILY PRACTICE 07/17/22 documented as of this encounter
--- OUTSIDE RECORDS SUMMARY | 2024-08-18 10:36 | XMS_ITS | Encounter Summary ---
Author Organization [facility] Address [address] [place] [address] [place] [address] Care Team Providers Care Swedish Masseuse Name Role Phone Servando Torre MD Primary [...] st Contact Info) Description 09/28/2024 2:[address] OF [place] LAW CLERK Appointment [facility] [id number] [place] [address] Josué Cook MD [address] [address] documented as of this encounter Goals Goal Patient Goal Type Associated Problems Recent Progress Patient-Stated? Author HOME TO [facility] Vannessa Light RN documented as of this encounter Visit Diagnoses Not on filedocumented in this encounter Additional Health Concerns Assessment Noted Time PHQ-9 Depression Total Score: 0 07/06/20 21 4:[address] [place] LAW CLERK documented as of this encounter Care Teams Swedish Masseuse Relationship Specialty Start Date End Date Servando Torre MD [address] [place] [address] [address] [place] [address] PCP - General FAMILY PRACTICE 07/17/22 documented as of this encounter
--- OUTSIDE RECORDS SUMMARY | 2024-08-18 10:36 | XMS_ITS | Encounter Summary ---
Author Organization [facility] Address [address] [facility] [place] [address] [place] [address] Care Team Providers Care Summer Law Clerk Name Role Phone Servando Torre MD Primary Care Provider [phone] Reason for Visit * Treatment/Therapy Plan Authorization (Routine) - Authorized Specialty Diagnoses / Procedures Referred By Angel braswell Referred To Contact Diagnoses Chronic ulcerative colitis, unspecified complication ([facility]/HCC HHS/HCC) Abnormal liver function tests Procedures VEDOLIZUMAB, INJECTION [facility] [address] [place] [address] Phone: tel: [facility] [address] [place] [address] Phone: tel: Referral ID Status Reason Start Date Expiration Date Visits Requested Visits Authorized [id number] Authorized Medication 05/01/2023 08/30/2024 99 99 Encounter Details Date Type Department Care Team (Latest Contact Info) Description 04/02/2024 1:53 PM CDT - 04/02/2024 3:07 PM CDT Hospital Encounter [facility] [address] [place] [address] Josué Cook MD [address] [facility] 8 [place] [address] Discharge Disposition: Home or Self Care (Routine [...] st Contact Info) Description 09/28/2024 2:30 PM ACTIONSCRIPT DEVELOPER Appointment [address] [address] Josué Cook MD [address] [facility] 8 [place] [address] documented as of this encounter Goals Goal [...] <0.29 mg/dL 04/02/2024 7:[address] [facility] 04/02/2024 1:56 PM CDT Josué Cook MD LABORATORY Final Result [facility] [address] [place] [address], [place] [phone] * (ABNORMAL) CBC W/DIFF AUTOMATED (04/02/2024 1:56 PM CDT) Pathologist [facility] WBC 10.39 4.4 - 11.0 x10'3/uL 04/02/2024 2:25 PM CDT [facility] RBC 4.82 4.50 - 5.10 x10'6/uL 04/02/2024 2:25 PM CDT [facility] HGB 14.4 12.3 - 15.3 G/DL 04/02/2024 2:25 PM CDT [facility] HCT 43.8 35.9 - 44.6 % 04/02/2024 2:25 PM CDT [facility] MCV 90.9 80.0 - 96.0 FL 04/02/2024 2:25 PM CDT [facility] MCH 29.9 25.3 - 30.9 PG 04/02/2024 2:25 PM CDT [facility] MCHC 32.9 31.0 - 34.1 G/DL 04/02/2024 2:25 PM CDT [facility] RDW 12.8 12.4 - 15.1 % 04/02/2024 2:25 PM CDT [facility] PLT 268 151 - 353 x10'3/uL 04/02/2024 2:25 PM CDT [facility] MPV 9.3(L) 9.6 - 12.0 FL 04/02/2024 2:25 PM CDT [facility] RBC MORPHOLOGY NORMAL 04/02/2024 2:25 PM CDT [facility] PLT MORPH. NORMAL 04/02/2024 2:25 PM CDT [facility] WBC MORPHOLOGY NORMAL 04/02/2024 2:25 PM CDT [facility] LYMPHOCYTES % 17.7 15.8 - 45.0 % 04/02/2024 2:25 PM T [facility] NEUTROPHILS % 70.2 42.1 - 71.9 % 04/02/2024 2:25 PM CDT [facility] MONOCYTES % 8.2 5.7 - 12.5 % 04/02/2024 2:25 PM CDT [facility] EOSINOPHILS 2.9 0.0 - 5.6 % 04/02/2024 2:25 PM CDT [facility] BASOPHILS 0.6 0.0 - 1.3 % 04/02/2024 2:25 PM CDT [facility] ABS. NEUTROPHILS 7.30(H) 1.40 - 6.00 x10'3/uL 04/02/2024 2:25 PM CDT [facility] IMMATURE GRANS % 0.4 0.0 - 0.5 % 04/02/2024 2:25 PM CDT [facility] ABS. LYMPHOCYTES 1.84 0.80 - 4.70 x10'3/uL 04/02/2024 2:25 PM CDT [facility] 04/02/2024 1:56 PM CDT us Josué Cook MD LABORATORY Final Result [facility] [address] [place] [address], * (ABNORMAL) COMPREHENSIVE METABOLIC PANEL (04/02/2024 1:56 PM CDT) GLUCOSE 164(H) 70 - 99 MG/DL 04/02/2024 2:42 PM CDT [facility] BUN 15 7 - 18 MG/DL 04/02/2024 2:42 PM CDT [facility] CREATININE S/P/B 1.32(H) 0.55 - 1.02 MG/DL 04/02/2024 2:42 PM CDT [facility] SODIUM S/P/B 140 136 - 145 MMOL/L 04/02/2024 2:42 PM CDT [facility] POTASSIUM S/P/B 4.0 3.5 - 5.1 MMOL/L 04/02/2024 2:42 PM CDT [facility] CHLORIDE S/P/B 102 100 - 108 MMOL/L 04/02/2024 2:42 PM CDT [facility] CO2 28.9 21 - 32 MMOL/L 04/02/2024 2:42 PM CDT [facility] CALCIUM S/P/B 9.6 8.5 - 10.1 MG/DL 04/02/2024 2:42 PM [facility] BILIRUBIN TOTAL S/P/B 0.4 0.2 - 1.2 MG/DL 04/02/2024 2:42 PM [facility] TOTAL PROTEIN S/P/B 7.1 6.4 - 8.2 G/DL 04/02/2024 2:42 PM [facility] ALBUMIN S/P/B 3.5 3.4 - 5.0 G/DL 04/02/2024 2:42 PM [facility] AST 23 15 - 37 U/L 04/02/2024 2:42 PM [facility] ALT 20 14 - 55 U/L 04/02/2024 2:42 PM [facility] ALKALINE PHOSPHATASE S/P/B 113 50 - 136 U/L 04/02/2024 2:42 PM [facility] ANION GAP 9.1 5 - 15 MMOL/L 04/02/2024 2:42 PM [facility] BUN CREATININE RATIO 11.4 6 - 26 04/02/2024 2:42 PM [facility] A/G RATIO 1.0 1.0 - 2.0 RATIO 04/02/2024 2:42 PM [facility] GFR ESTIMATE 41(L) >90 ML/MIN/1.7 3 M2 04/02/2024 2:42 PM [facility] Comment: NOTE: eGFR is not calculated for patients <18 years of age. This is an estimated GFR calculation using the new CKD EPI creatinine equation without race and so does not require a correction factor for race. This estimated GFR should not be used for calculating drug doses. 04/02/2024 1:56 PM CDT us Anas K Gremida MD LABORATORY Final Result [facility] [address] [place] [address], [place] [phone] documented in this encounter Visit Diagnoses Diagnosis [...] Total Score: 0 07/06/20 21 4:06 PM ACTIONSCRIPT DEVELOPER documented as of this encounter Care Teams Summer Law Clerk Relationship Specialty Start Date End Date Servando Torre MD [address] [place] [address] [address] [place] [address] PCP - General FAMILY PRACTICE 07/17/22 documented as of this encounter
--- OUTSIDE RECORDS SUMMARY | 2024-08-18 10:38 | XMS_ITS | Encounter Summary ---
Author Organization [facility] Address [address] [facility] [place] [address] [place] [address] Care Team Providers Care Mortising Machine Operator Name Role Phone Servando Torre [...] Coronavirus/COVID-19? No / Unsure 07/17/2022 1:45 PM ADMINISTRATIVE ASSISTANT documented as of this encounter Functional Status [...] st Contact Info) Description 09/28/2024 2:30 PM ADMINISTRATIVE ASSISTANT Appointment [address] [address] Josué Cook MD [address] [address] documented as of this encounter Goals Goal Patient Goal Type Associated Problems Recent Progress Patient-Stated? Author HOME TO INDEPENDENT LIVING [facility] Vannessa Light RN documented as of this encounter Visit Diagnoses Not on filedocumented in this encounter Additional Health Concerns Assessment Noted Time PHQ-9 Depression Total Score: 0 07/06/20 21 4:06 PM ADMINISTRATIVE ASSISTANT documented as of this encounter Care Teams Mortising Machine Operator Relationship Specialty Start Date End Date Servando Torre MD [address] [place] [address] [address] [place] [address] PCP - General FAMILY PRACTICE 07/17/22 documented as of this encounter
--- OUTSIDE RECORDS SUMMARY | 2024-08-18 10:38 | XMS_ITS | Encounter Summary ---
Author Organization [facility] Address [address] [facility] [place] [address] [place] [address] Care Team Providers Care Semi Automatic Sewing Machine Operator Name Role Phone Jared Abrams MD Primary Care Provider [phone] Servando Torre MD Primary Care Provider [phone] Encounter Details Date Type Department Care Team (Late st Contact Info) Description 06/18/2022 Therapy Plan [facility] [address] [place] [address] Mariela Denton MD [facility] S CLOVISArielle [facility] [address] [place] [address] Social History Tobacco Use Types Packs/Day Years [...] Type Department Care Team (Late st [facility]) Description 09/28/2024 2:30 PM ASBESTOS SHINGLE ROOFER Appointment [facility] [address] [place] [address] Josué Cook MD [facility] [address] [address] documented as of this encounter Goals Goal Patient Goal Type Associated Problems Recent Progress Patient-Stated? Author HOME TO [facility] General No Vannessa Blackwell RN documented as of this encounter Visit Diagnoses Diagnosis Chronic ulcerative colitis, unspecified complication (CMS/HCC [facility])- Primary documented in this encounter Additional Health Concerns Assessment Noted Time PHQ-9 Depression Total Score: 0 07/06/20 21 4:06 PM ASBESTOS SHINGLE ROOFER documented as of this encounter Care Teams Semi Automatic Sewing Machine Operator Relationship Specialty Start Date End Date Jared Abrams MD PCP - General 08/28/11 07/16/22 Servando Torre MD [address] [facility] [address] [place] [address] PCP - General FAMILY PRACTICE 07/17/22 documented as of this encounter
--- OUTSIDE RECORDS SUMMARY | 2024-08-18 10:38 | XMS_ITS | Encounter Summary ---
Author Organization [facility] Address [address] [facility] [place] [address] [place] [address] Care Team Providers Care Vacuum Drier Operator Name Role Phone Servando Torre MD Primary Care Provider [phone] Reason for Visit * Reason Onset Date Comments Orders 04/14/2023 Need updated ord ers for Entyvio infusion Encounter Details Date Type Department Care Team (Late st Contact Info) Description 04/14/2023 Telephone [facility] One Day Services [address] [place], [place] [id number] Mariela Denton MD [address] [place] [address] Orders (Need updated orders for Entyvio infusion [...] insurance auth for the new order to [facility] Infusion center. Just FYI, pt did have a seizure over the summer and is now on Keppra. Order can be faxed to us at [phone]. Or please feel free to call w/ any questions at [phone]. documented in this encounter Plan of Treatment Upcoming Encounters Date Type Department Care Team (Late st Contact Info) Description 09/28/2024 2:30 PM MANAGEMENT SCIENTIST Appointment [facility] [address] [place] [address] Josué Cook MD [address] [facility] 8 [place] [address] documented as of this encounter Goals Goal Patient Goal Type Associated Problems Recent Progress Patient-Stated? Author HOME TO [facility] Vannessa Light RN documented as of this encounter Visit Diagnoses Not on filedocumented in this encounter Additional Health Concerns Assessment Noted Time PHQ-9 Depression Total Score: 0 07/06/20 4:06 PM MANAGEMENT SCIENTIST documented as of this encounter Care Teams Vacuum Drier Operator Relationship Specialty Start Date End Date Servando Torre MD [address] [place] [address] [address] [place] [address] PCP - General FAMILY PRACTICE 07/17/22 documented as of this encounter
--- OUTSIDE RECORDS SUMMARY | 2024-08-18 10:38 | XMS_ITS | Encounter Summary ---
Author Organization [facility] Address [address] [place] [address] [place] [address] Care Team Providers Care Bobbin Trucker Name Role Phone Servando Torre MD Primary Care Provider [phone] Encounter Details Date Type Department Care Team (Late st Contact Info) Description 07/19/2022 Orders Only [facility] [address] [place] [address] [address] [place] [address] Alen Corbett, DO [address] [address] Social History Tobacco Use Types Packs/Day Years [...] Coronavirus/COVID-19? No / Unsure 07/17/2022 1:45 PM ANESTHESIA DIRECTOR documented as of this encounter Functional Status [...] st Contact Info) Description 09/28/2024 2:30 PM ANESTHESIA DIRECTOR Appointment [address] [address] Josué Cook MD [address] [facility] 8 [place] [address] documented as of this encounter Goals Goal Patient Goal Type Associated Problems Recent Progress Patient-Stated? Author HOME TO [facility] General No Vannessa Blackwell RN documented as of this encounter Visit Diagnoses Not on filedocumented in this encounter Additional Health Concerns Assessment Noted Time PHQ-9 Depression Total Score: 0 07/06/20 21 4:06 PM ANESTHESIA DIRECTOR documented as of this encounter Care Teams Bobbin Trucker Relationship Specialty Start Date End Date Servando Torre MD [address] [facility] [address] [place] [address] PCP - General FAMILY PRACTICE 07/17/22 documented as of this encounter
--- OUTSIDE RECORDS SUMMARY | 2024-08-18 10:38 | XMS_ITS | Encounter Summary ---
Author Organization [facility] Address [address] [facility] [place] [address] [place] [address] Care Team Providers Care Pumping Station Supervisor Name Role Phone Servando Torre MD Primary Care Provider + [phone] Reason for Visit * Treatment/Therapy Plan Authorization (Routine) - Closed Specialty Diagnoses / Procedures Referred By Angel braswell Referred To Contact Diagnoses Chronic ulcerative colitis, unspecified complication ([facility]/HCC [facility]) Procedures VEDOLIZUMAB, INJECTION [facility] Day [facility] [address] [place] [address] Phone: tel: [facility] [address] [place] [address] Phone: tel: Referral ID Status Reason Start Date Expiration Date Visits Re quested Visits Authorized [id number] Closed 06/18/2022 3 3 Encounter Details Date Type Department Care Team (Latest Contact Info) Description 07/31/2022 1:42 PM INTELLECTUAL PROPERTY PARALEGAL - 07/31/2022 4:09 PM [facility] Hospital Encounter [facility] [address] [place] [address] Mariela Denton MD [facility] [address] [place] [address] Discharge Disposition: Home or Self Care (Routine [...] Coronavirus/COVID-19? No / Unsure 07/31/2022 1:38 PM INTELLECTUAL PROPERTY PARALEGAL documented as of this encounter Last Filed Vital Signs Vital Sign Reading Time Taken Comments Blood Pressure 138/55 07/31/2022 4:00 PM INTELLECTUAL PROPERTY PARALEGAL Pulse 77 07/31/2022 4:00 PM INTELLECTUAL PROPERTY PARALEGAL Temperature 36.8 ??C (98.3 ??F) 07/31/2022 2:38 PM CS T Respiratory Rate - - Oxygen Saturation 98% 07/31/2022 4:00 PM INTELLECTUAL PROPERTY PARALEGAL Inhaled Oxygen Concentration - - Weight - [...] st Contact Info) Description 09/28/2024 2:30 PM INTELLECTUAL PROPERTY PARALEGAL Appointment [facility] Day [facility] [address] [place] [address] Josué Cook MD [address] [facility] 8 [place] [address] documented as of this encounter Goals Goal Patient Goal Type Associated Problems Recent Progress Patient-Stated? Author HOME TO [facility] Vannessa Light RN documented as of this encounter Visit Diagnoses Diagnosis Chronic ulcerative colitis, unspecified complication ([facility] HHS/HCC)- Primary documented in this encounter [...] in 24 hours.Indications:Chronic ulcerative colitis, unspecified complication ([facility] HHS/HCC) diphenhydrAMINE (BENADRYL) capsule 25 mg 25 mg, Oral, Once as needed, premedicate 30 mins prior to infusion, 1 dose, Starting on Fri07/31/22 at 1425, Until Fri07/31/22 at 1433Indications:Chronic ulcerative colitis, unspecified complication ([facility] HHS/HCC) Given 07/31/2022 2:33 PM INTELLECTUAL PROPERTY PARALEGAL 25 mg vedolizumab (ENTYVIO) 300 mg in [...] NS after completion.Indications:Chronic ulcerative colitis, unspecified complication ([facility] HHS/HCC) New Bag 07/31/2022 3:08 PM INTELLECTUAL PROPERTY PARALEGAL 300 mg 500 mL/hr documented in this encounter Active and Recently Administered Medications Times are shown in INTELLECTUAL PROPERTY PARALEGAL. Scheduled Medication Order 07/29/2022 07/30/2022 07/31/2022 vedolizumab [...] Total Score: 0 07/06/20 21 4:06 PM INTELLECTUAL PROPERTY PARALEGAL documented as of this encounter Care Teams Pumping Station Supervisor Relationship Specialty Start Date End Date Servando Torre MD [address] [place] [address] [address] [place] [address] PCP - General FAMILY PRACTICE 07/17/22 documented as of this encounter
--- OUTSIDE RECORDS SUMMARY | 2024-08-18 10:38 | XMS_ITS | Encounter Summary ---
Author Organization [facility] Address [address] [facility] [place] [address] [place] [address] Care Team Providers Care Lockstitch Front Maker Name Role Phone Servando Torre MD Primary Care Provider + [phone] Reason for Visit * Treatment/Therapy Plan Authorization (Routine) - Closed Specialty Diagnoses / Procedures Referred By Angel braswell Referred To Contact Diagnoses Chronic ulcerative colitis, unspecified complication ([facility]/HCC [facility]) Procedures VEDOLIZUMAB, INJECTION [facility] [address] [place] [address] Phone: tel: [facility] [address] [place] [address] Phone: tel: Referral ID Status Reason Start Date Expiration Date Visits Re quested Visits Authorized [id number] Closed 06/18/2022 3 3 Encounter Details Date Type Department Care Team (Latest Contact Info) Description 10/23/2022 2:08 PM CDT - 10/23/2022 4:00 PM CDT Hospital Encounter [facility] [address] [place] [address] Mariela Denton MD [address] [place] [address] Discharge Disposition: Home or Self Care (Routine [...] st Contact Info) Description 09/28/2024 2:30 PM DINKEY ENGINE OPERATOR Appointment [address] [address] Josué Cook MD [facility] 8 [place] [address] documented as of this encounter Goals Goal Patient Goal Type Associated Problems Recent Progress Patient-Stated? Author HOME TO [facility] No Rishi, Vannessa M, RN documented [...] - 8.2 G/DL 10/23/2022 3:01 PM T [facility] ALBUMIN S/P/B 3.8 3.4 - 5.0 G/DL 10/23/2022 3:01 PM T [facility] BILIRUBIN TOTAL S/P/B 0.4 0.2 - 1.2 MG/DL 10/23/2022 3:01 PM [facility] BILIRUBIN DIRECT S/P/B 0.1 0.0 - 0.20 MG/DL 10/23/2022 3:01 PM [facility] BILIRUBIN INDIRECT S/P/B 0.3 0.0 - 0.9 MG/DL 10/23/2022 3:01 PM T [facility] ALKALINE PHOSPHATASE S/P/B 74 50 - 136 U/L 10/23/2022 3:01 PM [facility] AST 29 15 - 37 U/L 10/23/2022 3:01 PM T [facility] ALT 31 14 - 55 U/L 10/23/2022 3:01 PM [facility] A/G RATIO 0.9(L) 1.0 - 2.0 RATIO 10/23/2022 3:01 PM [facility] 10/23/2022 2:45 PM CDT us Mariela Denton MD LABORATORY Final Res ult [facility] [address] [place] [address], [place] [phone] * (ABNORMAL) CBC W/DIFF AUTOMATED (10/23/2022 2:45 PM CDT) WBC 7.90 4.4 - 11.0 x10'3/uL 10/23/2022 2:50 PM CDT [facility] RBC 4.81 4.50 - 5.10 x10'6/uL 10/23/2022 2:50 PM CDT [facility] HGB 14.2 12.3 - 15.3 G/DL 10/23/2022 2:50 PM CDT [facility] HCT 43.4 35.9 - 44.6 % 10/23/2022 2:50 PM CDT [facility] MCV 90.2 80.0 - 96.0 FL 10/23/2022 2:50 PM CDT [facility] MCH 29.5 25.3 - 30.9 PG 10/23/2022 2:50 PM CDT [facility] MCHC 32.7 31.0 - 34.1 G/DL 10/23/2022 2:50 PM CDT [facility] RDW 14.4 12.4 - 15.1 % 10/23/2022 2:50 PM CDT [facility] PLT 251 151 - 353 x10'3/uL 10/23/2022 2:50 PM CDT [facility] MPV 8.8(L) 9.6 - 12.0 FL 10/23/2022 2:50 PM CDT [facility] RBC MORPHOLOGY NORMAL 10/23/2022 2:50 PM CDT [facility] PLT MORPH. NORMAL 10/23/2022 2:50 PM CDT [facility] WBC MORPHOLOGY NORMAL 10/23/2022 2:50 PM CDT [facility] LYMPHOCYTES % 31.1 15.8 - 45.0 % 10/23/2022 2:50 PM CDT [facility] NEUTROPHILS % 57.7 42.1 - 71.9 % 10/23/2022 2:50 PM CDT [facility] MONOCYTES % 7.3 5.7 - 12.5 % 10/23/2022 2:50 PM CDT [facility] EOSINOPHILS 2.9 0.0 - 5.6 % 10/23/2022 2:50 PM CDT [facility] BASOPHILS 0.6 0.0 - 1.3 % 10/23/2022 2:50 PM CDT [facility] ABS. NEUTROPHILS 4.55 1.40 - 6.00 x10'3/uL 10/23/2022 2:50 PM CDT [facility] IMMATURE GRANS % 0.4 0.0 - 0.5 % 10/23/2022 2:50 PM CDT [facility] ABS. LYMPHOCYTES 2.46 0.80 - 4.70 x10'3/uL 10/23/2022 2:50 PM CDT [facility] 10/23/2022 2:45 PM CDT us Mariela Denton MD LABORATORY Final Res ult [facility] [address] [place] [address], [place] [phone] documented in this encounter Visit Diagnoses Diagnosis Chronic ulcerative colitis, unspecified complication ([facility]/HCC)- Primary documented in this encounter Administered Medications [...] in 24 hours.Indications:Chronic ulcerative colitis, unspecified complication ([facility] HHS/HCC) acetaminophen (TYLENOL) tablet 650 mg 650 mg, Oral, Once as needed, Mild pain (Scale 1 - 3), 1 dose, Starting on Fri10/23/22 at 1414, Until Fri10/23/22 at 1446, Administer 30 mins prior to infusion Maximum dose of acetaminophen is 4000 mg from all sources in 24 hours.Indications:Chronic ulcerative colitis, unspecified complication ([facility] HHS/[facility]) Given 10/23/2022 2:46 PM CDT 650 mg diphenhydrAMINE (BENADRYL) capsule 25 mg 25 mg, Oral, Once as needed, premedicate 30 mins prior to infusion, 1 dose, Starting on Fri10/23/22 at 1414, Until Fri10/23/22 at 1446Indications:Chronic ulcerative colitis, unspecified complication ([facility] HHS/HCC) Given 10/23/2022 2:46 PM CDT 25 [...] increased heart rate).Indications:Chronic ulcerative colitis, unspecified complication ([facility] HHS/HCC) EPINEPHrine PF (ADRENALIN) 1 mg/mL injection 0.3 mg 0.3 mg, Intramuscular, Every 5 min PRN, Other, Severe hypersensitivity reaction (dyspnea, bronchospasm, urticaria, flushing, rash, and increased heart rate), 3 doses, Starting on Fri10/23/22 at 1414, Until Fri10/23/22 at 1804, Severe hypersensitivity reaction (dyspnea, bronchospasm, urticaria, flushing, rash, and increased heart rate)Indications:Chronic ulcerative colitis, unspecified complication ([facility] HHS/[facility]) vedolizumab (ENTYVIO) [...] NS after completion.Indications:Chronic ulcerative colitis, unspecified complication ([facility] HHS/HCC) New Bag 10/23/2022 2:48 PM CDT [...] Depression Total Score: 0 07/06/20 4:06 PM DINKEY ENGINE OPERATOR documented as of this encounter Care Teams Lockstitch Front Maker Relationship Specialty Start Date End Date Servando Torre MD [address] [place] [address] [address] [place] [address] PCP - General FAMILY PRACTICE 07/17/22 documented as of this encounter
--- OUTSIDE RECORDS SUMMARY | 2024-08-18 10:38 | XMS_ITS | Encounter Summary ---
Author Organization [facility] Address [address] [facility] [place] [address] [place] [address] Care Team Providers Care Internal Corrosion Specialist Name Role Phone Servando Torre MD Primary Care Provider + [phone] Reason for Visit * Treatment/Therapy Plan Authorization (Routine) - Closed Specialty Diagnoses / Procedures Referred By Angel braswell Referred To Contact Diagnoses Chronic ulcerative colitis, unspecified complication ([facility]/HCC [facility]) Procedures VEDOLIZUMAB, INJECTION [facility] [address] [place] [address] Phone: tel: [facility] [address] [place] [address] Phone: tel: Referral ID Status Reason Start Date Expiration Date Visits Re quested Visits Authorized [id number] Closed 06/18/2022 3 3 Encounter Details Date Type Department Care Team (Latest Contact Info) Description 12/18/2022 3:40 PM CDT - 12/18/2022 3:41 PM CDT Hospital Encounter [facility] [address] [place] [address] Mariela Denton MD [address] [place] [address] Discharge Disposition: Home or Self Care (Routine [...] st Contact Info) Description 09/28/2024 2:30 PM RESIDENTIAL TREATMENT COUNSELOR Appointment [facility] [address] [place], [place] [id number] Josué Cook MD [address] [place] [address] documented as of this encounter Goals Goal Patient Goal Type Associated Problems Recent Progress Patient-Stated? Author HOME TO [facility] No Vannessa Blackwell RN documented as of [...] - 8.2 G/DL 12/18/2022 5:22 PM T [facility] ALBUMIN S/P/B 3.5 3.4 - 5.0 G/DL 12/18/2022 5:22 PM [facility] BILIRUBIN TOTAL S/P/B 0.2 0.2 - 1.2 MG/DL 12/18/2022 5:22 PM [facility] BILIRUBIN DIRECT S/P/B <0.1 0.0 - 0.20 MG/DL 12/18/2022 5:22 PM [facility] BILIRUBIN INDIRECT S/P/B 0.2 0.0 - 0.9 MG/DL 12/18/2022 5:22 PM [facility] ALKALINE PHOSPHATASE S/P/B 79 50 - 136 U/L 12/18/2022 5:22 PM [facility] AST 21 15 - 37 U/L 12/18/2022 5:22 PM [facility] ALT 22 14 - 55 U/L 12/18/2022 5:22 PM [facility] A/G RATIO 1.0 1.0 - 2.0 RATIO 12/18/2022 5:22 PM [facility] 12/18/2022 2:12 PM CDT us Mariela Denton MD LABORATORY Final Res ult [facility] [address] [place] [address], [place] [phone] * (ABNORMAL) CBC W/DIFF AUTOMATED (12/18/2022 2:12 PM CDT) Pathologist [facility] WBC 9.27 4.4 - 11.0 x10'3/uL 12/18/2022 5:09 PM CDT [facility] RBC 4.34(L) 4.50 - 5.10 x10'6/uL 12/18/2022 5:09 PM CDT [facility] HGB 12.7 12.3 - 15.3 G/DL 12/18/2022 5:09 PM CDT [facility] HCT 39.4 35.9 - 44.6 % 12/18/2022 5:09 PM CDT [facility] MCV 90.8 80.0 - 96.0 FL 12/18/2022 5:09 PM CDT [facility] MCH 29.3 25.3 - 30.9 PG 12/18/2022 5:09 PM CDT [facility] MCHC 32.2 31.0 - 34.1 G/DL 12/18/2022 5:09 PM CDT [facility] RDW 15.0 12.4 - 15.1 % 12/18/2022 5:09 PM CDT [facility] PLT 249 151 - 353 x10'3/uL 12/18/2022 5:09 PM CDT [facility] MPV 9.6 9.6 - 12.0 FL 12/18/2022 5:09 PM CDT [facility] RBC MORPHOLOGY NORMAL 12/18/2022 5:09 PM CDT [facility] PLT MORPH. NORMAL 12/18/2022 5:09 PM CDT [facility] WBC MORPHOLOGY NORMAL 12/18/2022 5:09 PM CDT [facility] LYMPHOCYTES % 26.5 15.8 - 45.0 % 12/18/2022 5:09 PM CDT [facility] NEUTROPHILS % 62.4 42.1 - 71.9 % 12/18/2022 5:09 PM CDT [facility] MONOCYTES % 7.8 5.7 - 12.5 % 12/18/2022 5:09 PM CDT [facility] EOSINOPHILS 2.3 0.0 - 5.6 % 12/18/2022 5:09 PM CDT [facility] BASOPHILS 0.5 0.0 - 1.3 % 12/18/2022 5:09 PM CDT [facility] ABS. NEUTROPHILS 5.78 1.40 - 6.00 x10'3/uL 12/18/2022 5:09 PM CDT [facility] IMMATURE GRANS % 0.5 0.0 - 0.5 % 12/18/2022 5:09 PM CDT [facility] ABS. LYMPHOCYTES 2.46 0.80 - 4.70 x10'3/uL 12/18/2022 5:09 PM T [facility] 12/18/2022 2:12 PM CDT us Mariela Denton MD LABORATORY Final Res ult [facility] [address] [place] [address], [place] [phone] documented in this encounter Visit Diagnoses Diagnosis [...] Fri12/18/22 at 1404Indications:Chronic ulcerative colitis, unspecified complication ([facility] HHS/HCC) Given 12/18/2022 2:04 PM CDT 25 [...] NS after completion.Indications:Chronic ulcerative colitis, unspecified complication ([facility] HHS/HCC) New Bag 12/18/2022 2:33 PM CDT [...] Total Score: 0 07/06/20 21 4:06 PM RESIDENTIAL TREATMENT COUNSELOR documented as of this encounter Care Teams Internal Corrosion Specialist Relationship Specialty Start Date End Date Servando Torre MD [address] [place] [address] [address] [place] [address] PCP - General FAMILY PRACTICE 07/17/22 documented as of this encounter
--- OUTSIDE RECORDS SUMMARY | 2024-08-18 10:38 | XMS_ITS | Encounter Summary ---
Author Organization [facility] Address [address] [facility] [place] [place] [address] [place] [address] Care Team Providers Care Copy Room Technician Name Role Phone Servando Torre MD Primary Care Provider [phone] Reason for Visit * Treatment/Therapy Plan Authorization (Routine) - Closed Specialty Diagnoses / Procedures Referred By Angel braswell Referred To Contact Diagnoses Chronic ulcerative colitis, unspecified complication ([facility]/HCC [facility]) Procedures VEDOLIZUMAB, INJECTION [facility] [address] [place] [address] Phone: tel: [facility] [address] [place] [address] Phone: tel: Referral ID Status Reason Start Date Expiration Date Visits Re quested Visits Authorized [id number] Closed 06/18/2022 3 3 Encounter Details Date Type Department Care Team (Latest Contact Info) Description 04/14/2023 1:29 PM CDT - 04/14/2023 3:00 PM CDT Hospital Encounter [facility] [address] [place] [address] Non-Staff, Provider Mariela Denton MD [address] [place] [address] Josué Cook MD [address] [facility] 8 [facility] [place] [address] Discharge Disposition: Home or Self Care (Routine [...] st Contact Info) Description 09/28/2024 2:30 PM WELDING MANAGER Appointment [facility] [address] [id number] Josué Cook MD [address] [address] documented as of this encounter Goals Goal Patient Goal Type Associated Problems Recent Progress Patient-Stated? Author HOME TO [facility] No Vannessa Blackwell RN documented as of this encounter Visit Diagnoses Diagnosis Chronic ulcerative colitis, unspecified complication ([facility] HHS/HCC)- Primary documented in this encounter [...] in 24 hours.Indications:Chronic ulcerative colitis, unspecified complication ([facility]/HCC HHS/HCC) acetaminophen (TYLENOL) tablet 650 mg 650 mg, Oral, Once as needed, Mild pain (Scale 1 - 3), 1 dose, Starting on Fri04/14/23 at 1330, Until Fri04/14/23 at 1727, Maximum dose of acetaminophen is 4000 mg from all sources in 24 hours.Indications:Chronic ulcerative colitis, unspecified complication ([facility] HHS/HCC) diphenhydrAMINE (BENADRYL) capsule 25 mg 25 mg, Oral, Once as needed, premedicate 30 mins prior to infusion, 1 dose, Starting on Fri04/14/23 at 1330, Until Fri04/14/23 at 1727Indications:Chronic ulcerative colitis, unspecified complication ([facility] HHS/HCC) diphenhydrAMINE (BENADRYL) injection 25 mg 25 mg, Intravenous, Once as needed, Severe hypersensitivity reaction (dyspnea, bronchospasm, urticaria, flushing, rash, and increased heart rate), Starting on Fri04/14/23 at 1330, Until Fri04/14/23 at 1727, For IV administration, give no faster than 25 mg/min. For severe hypersensitivity reaction (dyspnea, bronchospasm, urticaria, flushing, rash, and increased heart rate).Indications:Chronic ulcerative colitis, unspecified complication ([facility] HHS/HCC) EPINEPHrine PF (ADRENALIN) 1 mg/mL injection 0.3 mg 0.3 mg, Intramuscular, Every 5 min PRN, Other, Severe hypersensitivity reaction (dyspnea, bronchospasm, urticaria, flushing, rash, and increased heart rate), 3 doses, Starting on Fri04/14/23 at 1330, Until Fri04/14/23 at 1727, Severe hypersensitivity reaction (dyspnea, bronchospasm, urticaria, flushing, rash, and increased heart rate)Indications:Chronic ulcerative colitis, unspecified complication ([facility]) vedolizumab (ENTYVIO) 300 mg in sodium [...] NS after completion.Indications:Chronic ulcerative colitis, unspecified complication ([facility]) New Bag 04/14/2023 2:08 PM CDT 300 [...] Depression Total Score: 0 07/06/20 4:06 PM WELDING MANAGER documented as of this encounter Care Teams Copy Room Technician Relationship Specialty Start Date End Date Servando Torre MD [address] [place] [address] [address] [place] [address] PCP - General FAMILY PRACTICE 07/17/22 documented as of this encounter
--- OUTSIDE RECORDS SUMMARY | 2024-08-18 10:38 | XMS_ITS | Encounter Summary ---
Author Organization [facility] Address [address] [facility] [place] [address] [place] [address] Care Team Providers Care Sane Rn Name Role Phone Servando Torre MD [...] st Contact Info) Description 09/28/2024 2:30 PM PSYCHIATRIC NURSING AIDE Appointment [facility] [id number] [place] [address] Josué Cook MD [address] [address] documented as of this encounter Goals Goal Patient Goal Type Associated Problems Recent Progress Patient-Stated? Author HOME TO [facility] Vannessa Light RN documented as of this encounter Visit Diagnoses Not on filedocumented in this encounter Additional Health Concerns Assessment Noted Time PHQ-9 Depression Total Score: 0 07/06/20 21 4:06 PM PSYCHIATRIC NURSING AIDE documented as of this encounter Care Teams Sane Rn Relationship Specialty Start Date End Date Servando Torre MD [address] [place] [address] [address] [place] [address] PCP - General FAMILY PRACTICE 07/17/22 documented as of this encounter
--- OUTSIDE RECORDS SUMMARY | 2024-08-18 10:38 | XMS_ITS | Encounter Summary ---
Author Organization [facility] Address [address] [facility] [place] [address] [place] [address] Care Team Providers Care Tree And Shrub Worker Name Role Phone Servando Torre MD Primary Care Provider [phone] Encounter Details Date Type Department Care Team (Late st Contact Info) Description 07/19/[address] [facility] [address] [place] [address] [address] [place] [address] Alen Corbett, DO [address] [address] Social History Tobacco Use Types Packs/Day Years [...] Coronavirus/COVID-19? No / Unsure 07/17/2022 1:45 PM CUSTOMS GUARD documented as of this encounter Functional Status [...] st Contact Info) Description 09/28/2024 2:30 PM CUSTOMS GUARD Appointment [address] [address] Josué Cook MD [address] [facility] 8 [place] [address] documented as of this encounter Goals Goal Patient Goal Type Associated Problems Recent Progress Patient-Stated? Author [facility] General No Vannessa Blackwell RN documented as of this encounter Visit Diagnoses Not on filedocumented in this encounter Additional Health Concerns Assessment Noted Time PHQ-9 Depression Total Score: 0 07/06/20 21 4:06 PM CUSTOMS GUARD documented as of this encounter Care Teams Tree And Shrub Worker Relationship Specialty Start Date End Date Servando Torre MD [address] [facility] [address] [place] [address] PCP - General FAMILY PRACTICE 07/17/22 documented as of this encounter
--- OUTSIDE RECORDS SUMMARY | 2024-08-18 10:38 | XMS_ITS | Encounter Summary ---
Author Organization [facility] Address [address] [facility] [place] [address] [place] [address] Care Team Providers Care Spring Encaser Name Role Phone Jared Abrams MD Primary Care Provider [phone] Encounter Details Date Type Department Care Team (Late st Contact Info) Description 06/22/2022 Orders Only [facility] [address] [facility] [address] [place] [address] Alen Corbett, DO [address] [address] Social History Tobacco Use Types Packs/Day Years [...] st Contact Info) Description 09/28/2024 2:30 PM HAND PAINT MIXER Appointment [address] [address] Josué Cook MD [address] [address] documented as of this encounter Goals Goal Patient Goal Type Associated Problems Recent Progress Patient-Stated? Author HOME TO [facility] General No Vannessa Blackwell RN documented as of this encounter Visit Diagnoses Not on filedocumented in this encounter Additional Health Concerns Assessment Noted Time PHQ-9 Depression Total Score: 0 07/06/20 21 4:06 PM HAND PAINT MIXER documented as of this encounter Care Teams Spring Encaser Relationship Specialty Start Date End Date Jared Abrams MD PCP - General 08/28/11 07/16/22 documented as of this encounter
--- OUTSIDE RECORDS SUMMARY | 2024-08-18 10:38 | XMS_ITS | Encounter Summary ---
Author Organization [facility] Address [address] [facility] [place] [address] [place] [address] Care Team Providers Care Order Make Up Clerk Name Role Phone Servando Torre MD [...] st Contact Info) Description 09/28/2024 2:30 PM GENERAL NEUROLOGIST Appointment [address] [address] Josué Cook MD [address] [address] documented as of this encounter Goals Goal Patient Goal Type Associated Problems Recent Progress Patient-Stated? Author HOME TO [facility] Vannessa Light RN documented as of this encounter Visit Diagnoses Not on filedocumented in this encounter Additional Health Concerns Assessment Noted Time PHQ-9 Depression Total Score: 0 07/06/20 21 4:06 PM GENERAL NEUROLOGIST documented as of this encounter Care Teams Order Make Up Clerk Relationship Specialty Start Date End Date Servando Torre MD [address] [place] [address] [address] [place] [address] PCP - General FAMILY PRACTICE 07/17/22 documented as of this encounter
--- OUTSIDE RECORDS SUMMARY | 2024-08-18 10:38 | XMS_ITS | Encounter Summary ---
Author Organization [facility] Address [address] [facility] [place] [address] [place] [address] Care Team Providers Care Historical Site Guide Name Role Phone Servando Torre MD Primary Care Provider [phone] Reason for Visit * Treatment/Therapy Plan Authorization (Routine) - Closed Specialty Diagnoses / Procedures Referred By Angel braswell Referred To Contact Diagnoses Chronic ulcerative colitis, unspecified complication ([facility]/HCC [facility]) Procedures VEDOLIZUMAB, INJECTION [facility] [address] [place] [address] Phone: tel: [facility] [address] [place] [address] Phone: tel: Referral ID Status Reason Start Date Expiration Date Visits Re quested Visits Authorized [id number] Closed 06/18/2022 3 3 Encounter Details Date Type Department Care Team (Latest Contact Info) Description 07/17/2022 1:51 PM ASSISTANT DIRECTOR OF SECURITY - 07/17/2022 4:30 PM ASSISTANT DIRECTOR OF SECURITY Hospital Encounter [facility] [address] [place] [address] Mariela Denton MD [facility] [address] [place] [address] Discharge Disposition: Home or Self Care (Routine [...] Coronavirus/COVID-19? No / Unsure 07/17/2022 1:45 PM ASSISTANT DIRECTOR OF SECURITY documented as of this encounter Last Filed Vital Signs Vital Sign Reading Time Taken Comments Blood Pressure 143/64 07/17/2022 4:05 PM ASSISTANT DIRECTOR OF SECURITY Pulse 56 07/17/2022 4:05 PM ASSISTANT DIRECTOR OF SECURITY Temperature 36.7 ??C (98.1 ??F) 07/17/2022 4:05 PM CS T Respiratory Rate - - Oxygen Saturation 95% 07/17/2022 4:05 PM ASSISTANT DIRECTOR OF SECURITY Inhaled Oxygen Concentration - - Weight - [...] st Contact Info) Description 09/28/2024 2:30 PM ASSISTANT DIRECTOR OF SECURITY Appointment [facility] [address] [place] [address] Josué Cook MD [address] [facility] 8 [place] [address] documented as of this encounter Goals Goal Patient Goal Type Associated Problems Recent Progress Patient-Stated? Author HOME TO [facility] Vannessa Light RN documented as of this encounter Procedures Procedure Name Priority Date/Time Associated Diagnosis Comments HEPATIC FUNCTION PANEL Routine 07/17/2022 3:00 PM ASSISTANT DIRECTOR OF SECURITY Chronic ulcerative colitis, unspecified complication (CMS/HCC HHS/HCC) CBC W/DIFF AUTOMATED Routine 07/17/2022 3:00 PM ASSISTANT DIRECTOR OF SECURITY Chronic ulcerative colitis, unspecified complication (CMS/HCC HHS/HCC) documented in this encounter Results * (ABNORMAL) HEPATIC FUNCTION PANEL (07/17/2022 3:00 PM ASSISTANT DIRECTOR OF SECURITY) TOTAL PROTEIN S/P/B 6.8 6.4 - 8.2 G/DL 07/17/2022 3:40 PM [facility] ALBUMIN S/P/B 3.3(L) 3.4 - 5.0 G/DL 07/17/2022 3:40 PM [facility] BILIRUBIN TOTAL S/P/B 0.3 0.2 - 1.2 MG/DL 07/17/2022 3:40 PM [facility] BILIRUBIN DIRECT S/P/B 0.1 0.0 - 0.20 MG/DL 07/17/2022 3:40 PM [facility] BILIRUBIN INDIRECT S/P/B 0.2 0.0 - 0.9 MG/DL 07/17/2022 3:40 PM [facility] ALKALINE PHOSPHATASE S/P/B 66 50 - 136 U/L 07/17/2022 3:40 PM [facility] AST 21 15 - 37 U/L 07/17/2022 3:40 PM [facility] ALT 16 14 - 55 U/L 07/17/2022 3:40 PM [facility] A/G RATIO 0.9(L) 1.0 - 2.0 RATIO 07/17/2022 3:40 PM [facility] 07/17/2022 3:00 PM ASSISTANT DIRECTOR OF SECURITY us Mariela Denton MD LABORATORY Final Res ult [facility] [address] [place] [address], * (ABNORMAL) CBC W/DIFF AUTOMATED (07/17/2022 3:00 PM ASSISTANT DIRECTOR OF SECURITY) WBC 7.7 4.4 - 11.0 x10'3/uL 07/17/2022 3:12 PM ASSISTANT DIRECTOR OF SECURITY [facility] RBC 4.29(L) 4.50 - 5.10 x10'6/uL 07/17/2022 3:12 PM [facility] HGB 12.9 12.3 - 15.3 G/DL 07/17/2022 3:12 PM [facility] HCT 39.8 35.9 - 44.6 % 07/17/2022 3:12 PM [facility] MCV 92.8 80.0 - 96.0 FL 07/17/2022 3:12 PM ASSISTANT DIRECTOR OF SECURITY [facility] MCH 30.1 25.3 - 30.9 PG 07/17/2022 3:12 PM ASSISTANT DIRECTOR OF SECURITY [facility] MCHC 32.4 31.0 - 34.1 G/DL 07/17/2022 3:12 PM [facility] RDW 14.9 12.4 - 15.1 % 07/17/2022 3:12 PM ASSISTANT DIRECTOR OF SECURITY [facility] PLT 263 151 - 353 x10'3/uL 07/17/2022 3:12 PM [facility] MPV 9.1(L) 9.6 - 12.0 FL 07/17/2022 3:12 PM ASSISTANT DIRECTOR OF SECURITY [facility] RBC MORPHOLOGY NORMAL 07/17/2022 3:12 PM [facility] PLT MORPH. NORMAL 07/17/2022 3:12 PM ASSISTANT DIRECTOR OF SECURITY [facility] WBC MORPHOLOGY NORMAL 07/17/2022 3:12 PM ASSISTANT DIRECTOR OF SECURITY [facility] LYMPHOCYTES % 27.8 15.8 - 45.0 % 07/17/2022 3:12 PM ASSISTANT DIRECTOR OF SECURITY [facility] NEUTROPHILS % 61.0 42.1 - 71.9 % 07/17/2022 3:12 PM ASSISTANT DIRECTOR OF SECURITY [facility] MONOCYTES % 7.7 5.7 - 12.5 % 07/17/2022 3:12 PM [facility] EOSINOPHILS 2.6 0.0 - 5.6 % 07/17/2022 3:12 PM ASSISTANT DIRECTOR OF SECURITY [facility] BASOPHILS 0.5 0.0 - 1.3 % 07/17/2022 3:12 PM ASSISTANT DIRECTOR OF SECURITY [facility] ABS. NEUTROPHILS 4.70 1.40 - 6.00 x10'3/uL 07/17/2022 3:12 PM ASSISTANT DIRECTOR OF SECURITY [facility] IMMATURE GRANS % 0.4 0.0 - 0.5 % 07/17/2022 3:12 PM ASSISTANT DIRECTOR OF SECURITY [facility] ABS. LYMPHOCYTES 2.14 0.80 - 4.70 x10'3/uL 07/17/2022 3:12 PM [facility] 07/17/2022 3:00 PM ASSISTANT DIRECTOR OF SECURITY us Mariela Denton MD LABORATORY Final Res ult [facility] [address] [place] [address], documented in this encounter Visit Diagnoses Diagnosis [...] complication (CMS/HCC HHS/HCC) Given 07/17/2022 3:10 PM ASSISTANT DIRECTOR OF SECURITY 25 mg vedolizumab (ENTYVIO) 300 mg in [...] (CMS/HCC HHS/HCC) New Bag 07/17/2022 3:30 PM ASSISTANT DIRECTOR OF SECURITY 300 mg 500 mL/hr documented in this encounter Active and Recently Administered Medications Times are shown in ASSISTANT DIRECTOR OF SECURITY. Scheduled Medication Order 07/15/2022 07/16/2022 07/17/2022 vedolizumab [...] Depression Total Score: 0 07/06/20 4:06 PM ASSISTANT DIRECTOR OF SECURITY documented as of this encounter Care Teams Historical Site Guide Relationship Specialty Start Date End Date Servando Torre MD [address] [place] [address] [address] [place] [address] PCP - General FAMILY PRACTICE 07/17/22 documented as of this encounter
--- OUTSIDE RECORDS SUMMARY | 2024-08-18 10:38 | XMS_ITS | Encounter Summary ---
Author Organization [facility] Address [address] [facility] [place] [address] [place] [address] Care Team Providers Care Calender Worker Helper Name Role Phone Servando Torre MD [...] st Contact Info) Description 09/28/2024 2:30 PM TOE FORMER STITCHDOWNS Appointment [facility] [address] [place] [address] Josué Cook MD [address] [address] documented as of this encounter Goals Goal Patient Goal Type Associated Problems Recent Progress Patient-Stated? Author HOME TO [facility] Vannessa Light RN documented as of this encounter Visit Diagnoses Not on filedocumented in this encounter Additional Health Concerns Assessment Noted Time PHQ-9 Depression Total Score: 0 07/06/20 21 4:06 PM TOE FORMER STITCHDOWNS documented as of this encounter Care Teams Calender Worker Helper Relationship Specialty Start Date End Date Servando Torre MD [address] [place] [address] [address] [place] [address] PCP - General FAMILY PRACTICE 07/17/22 documented as of this encounter
--- OUTSIDE RECORDS SUMMARY | 2024-08-18 10:38 | XMS_ITS | Encounter Summary ---
Author Organization [facility] Address [address] [place] [address] [place] [address] Care Team Providers Care Cork Cutter Name Role Phone Servando Torre MD [...] Coronavirus/COVID-19? No / Unsure 07/31/2022 1:38 PM ACTIVE DIRECTORY ADMINISTRATOR documented as of this encounter Functional [...] 1:13 PM CDT Hannah Raegan RN Active * Because of a physical, [...] st Contact Info) Description 09/28/2024 2:30 PM ACTIVE DIRECTORY ADMINISTRATOR Appointment [address] [address] Josué Cook MD [address] [address] documented as of this encounter Goals Goal Patient Goal Type Associated Problems Recent Progress Patient-Stated? Author HOME TO [facility] Vannessa Light RN documented as of this encounter Visit Diagnoses Not on filedocumented in this encounter Additional Health Concerns Assessment Noted Time PHQ-9 Depression Total Score: 0 07/06/20 21 4:06 PM ACTIVE DIRECTORY ADMINISTRATOR documented as of this encounter Care Teams Cork Cutter Relationship Specialty Start Date End Date Servando Torre MD [address] [place] [address] [address] [place] [address] PCP - General FAMILY PRACTICE 07/17/22 documented as of this encounter
--- OUTSIDE RECORDS SUMMARY | 2024-08-18 10:38 | XMS_ITS | Encounter Summary ---
Author Organization [facility] Address [address] [facility] [place] [address] [place] [address] Care Team Providers Care Pillowcase Cleaner Name Role Phone Servando Torre MD Primary Care Provider [phone] Reason for Visit * Treatment/Therapy Plan Authorization (Routine) - Closed Specialty Diagnoses / Procedures Referred By Angel braswell Referred To Contact Diagnoses Chronic ulcerative colitis, unspecified complication ([facility]/HCC [facility]) Procedures VEDOLIZUMAB, INJECTION [facility] [address] [place] [address] Phone: tel: [facility] [address] [place] [address] Phone: tel: Referral ID Status Reason Start Date Expiration Date Visits Re quested Visits Authorized [id number] Closed 06/18/2022 3 3 Encounter Details Date Type Department Care Team (Latest Contact Info) Description 08/28/2022 1:41 PM FLIGHT READINESS TECHNICIAN - 08/28/2022 3:13 PM FLIGHT READINESS TECHNICIAN Hospital Encounter [facility] [address] [place] [address] Mariela Denton MD [address] [place] [address] Discharge Disposition: Home or Self Care (Routine [...] Coronavirus/COVID-19? No / Unsure 08/28/2022 1:37 PM FLIGHT READINESS TECHNICIAN documented as of this encounter Last Filed Vital Signs Vital Sign Reading Time Taken Comments Blood Pressure 170/77 08/28/2022 3:00 PM FLIGHT READINESS TECHNICIAN Pulse 68 08/28/2022 3:00 PM FLIGHT READINESS TECHNICIAN Temperature 36.9 ??C (98.4 ??F) 08/28/2022 3:00 PM CS T Respiratory Rate 18 08/28/2022 2:00 PM FLIGHT READINESS TECHNICIAN Oxygen Saturation 99% 08/28/2022 3:00 PM FLIGHT READINESS TECHNICIAN Inhaled Oxygen Concentration - - Weight - [...] st Contact Info) Description 09/28/2024 2:30 PM FLIGHT READINESS TECHNICIAN Appointment [facility] [address] [place], [place] [id number] Josué Cook MD [address] [address] documented as of this encounter Goals Goal Patient Goal Type Associated Problems Recent Progress Patient-Stated? Author HOME TO [facility] Vannessa Light RN documented as of this encounter Visit Diagnoses Diagnosis Chronic ulcerative colitis, unspecified complication ([facility] HHS/HCC)- Primary documented in this encounter Administered [...] in 24 hours.Indications:Chronic ulcerative colitis, unspecified complication ([facility] HHS/HCC) diphenhydrAMINE (BENADRYL) capsule 25 mg 25 mg, Oral, Once as needed, premedicate 30 mins prior to infusion, 1 dose, Starting on Fri08/28/22 at 1343, Until Fri08/28/22 at 1714Indications:Chronic ulcerative colitis, unspecified complication ([facility] HHS/HCC) vedolizumab (ENTYVIO) 300 mg in sodium [...] NS after completion.Indications:Chronic ulcerative colitis, unspecified complication ([facility] HHS/HCC) New Bag 08/28/2022 2:07 PM FLIGHT READINESS TECHNICIAN 300 mg 500 mL/hr documented in this encounter Active and Recently Administered Medications Times are shown in FLIGHT READINESS TECHNICIAN. Scheduled Medication Order 08/26/2022 08/27/2022 08/28/2022 vedolizumab [...] Depression Total Score: 0 07/06/20 4:06 PM FLIGHT READINESS TECHNICIAN documented as of this encounter Care Teams Pillowcase Cleaner Relationship Specialty Start Date End Date Servando Torre MD [address] [facility] [address] [place] [address] PCP - General FAMILY PRACTICE 07/17/22 documented as of this encounter
--- OUTSIDE RECORDS SUMMARY | 2024-08-18 10:38 | XMS_ITS | Encounter Summary ---
Author Organization [facility] Address [address] [facility] [place] [address] [place] [address] Care Team Providers Care Physical Therapy Teacher Name Role Phone Servando Torre MD [...] Coronavirus/COVID-19? No / Unsure 08/28/2022 1:37 PM ALL ROUND BUTCHER documented as of this encounter Functional Status [...] st Contact Info) Description 09/28/2024 2:30 PM ALL ROUND BUTCHER Appointment [address] [address] Josué Cook MD [address] [address] documented as of this encounter Goals Goal Patient Goal Type Associated Problems Recent Progress Patient-Stated? Author HOME TO [facility] Vannessa Light RN documented as of this encounter Visit Diagnoses Not on filedocumented in this encounter Additional Health Concerns Assessment Noted Time PHQ-9 Depression Total Score: 0 07/06/20 21 4:06 PM ALL ROUND BUTCHER documented as of this encounter Care Teams Physical Therapy Teacher Relationship Specialty Start Date End Date Servando Torre MD [address] [place] [address] [address] [place] [address] PCP - General FAMILY PRACTICE 07/17/22 documented as of this encounter
--- OUTSIDE RECORDS SUMMARY | 2024-08-18 10:38 | XMS_ITS | Encounter Summary ---
Author Organization [facility] Address [address] [facility] [place] [address] [place] [address] Care Team Providers Care Chip Machine Operator Name Role Phone Jared Abrams MD Primary Care Provider [phone] Encounter Details Date Type Department Care Team (Late st Contact Info) Description 06/20/2022 Orders Only [facility] [address] [facility] [address] [place] [address] Alen Corbett, DO [address] [address] Social History Tobacco Use Types Packs/Day Years [...] st Contact Info) Description 09/28/2024 2:30 PM DIRECTOR EMPLOYEE COMMUNICATIONS Appointment [address] [address] Josué Cook MD [address] [address] documented as of this encounter Goals Goal Patient Goal Type Associated Problems Recent Progress Patient-Stated? Author HOME TO [facility]DEP[facility]ENT LIV[facility] General No Vannessa Blackwell RN documented as of this encounter Visit Diagnoses Not on filedocumented in this encounter Additional Health Concerns Assessment Noted Time PHQ-9 Depression Total Score: 0 07/06/20 21 4:06 PM DIRECTOR EMPLOYEE COMMUNICATIONS documented as of this encounter Care Teams Chip Machine Operator Relationship Specialty Start Date End Date Jared Abrams MD PCP - General 08/28/11 07/16/22 documented as of this encounter
--- OUTSIDE RECORDS SUMMARY | 2024-08-18 10:38 | XMS_ITS | Encounter Summary ---
Author Organization [facility] Address [address] [facility] [place] [address] [place] [address] Care Team Providers Care Ip Network Architect Name Role Phone Servando Torre MD Primary Care Provider [phone] Reason for Visit * Treatment/Therapy Plan Authorization (Routine) - Closed Specialty Diagnoses / Procedures Referred By Angel braswell Referred To Contact Diagnoses Chronic ulcerative colitis, unspecified complication ([facility]/HCC [facility]) Procedures VEDOLIZUMAB, INJECTION [facility] [address] [place] [address] Phone: tel: [facility] [address] [place] [address] Phone: tel: Referral ID Status Reason Start Date Expiration Date Visits Re quested Visits Authorized [id number] Closed 06/18/2022 3 3 Encounter Details Date Type Department Care Team (Latest Contact Info) Description 02/12/2023 2:27 PM CDT - 02/12/2023 3:54 PM CDT Hospital Encounter [facility] [address] [place] [address] Mariela Denton MD [address] [place] [address] Discharge Disposition: Home or Self Care (Routine [...] st Contact Info) Description 09/28/2024 2:30 PM K 12 SCHOOL PRINCIPAL Appointment [facility] Day [address] [address] Josué Cook MD [address] [facility] 8 [place] [address] documented as of this encounter Goals Goal Patient Goal Type Associated Problems Recent Progress Patient-Stated? Author HOME TO [facility]DEP[facility]ENT LIV[facility] General Vannessa Light RN documented as of this encounter Visit Diagnoses Diagnosis Chronic ulcerative colitis, unspecified complication ([facility]/HCC HHS/HCC)- Primary documented in this encounter Administered [...] increased heart rate)Indications:Chronic ulcerative colitis, unspecified complication ([facility]) vedolizumab (ENTYVIO) 300 mg in [...] NS after completion.Indications:Chronic ulcerative colitis, unspecified complication ([facility]) New Bag 02/12/2023 3:08 PM [...] Depression Total Score: 0 07/06/20 4:06 PM K 12 SCHOOL PRINCIPAL documented as of this encounter Care Teams Ip Network Architect Relationship Specialty Start Date End Date Servando Torre MD [address] [place] [address] [address] [place] [address] PCP - General FAMILY PRACTICE 07/17/22 documented as of this encounter
--- OUTSIDE RECORDS SUMMARY | 2024-08-18 10:38 | XMS_ITS | Encounter Summary ---
Author Organization [facility] Address [address] [facility] [place] [address] [place] [address] Care Team Providers Care Telephone Quotation Clerk Name Role Phone Jared Abrams MD Primary Care Provider [phone] Reason for Visit * Reason Onset Date Comments Medication Information 04/25/2022 Medication Problem 04/25/2022 Encounter Details Date Type Department Care Team (Late st Contact Info) Description 04/25/2022 Telephone [facility] Medical [facility] Multispecialty Care - [facility] [address] [facility], [address] [place] [address] Vladimir Parsons MD [address] [place] [address] [address] [place] [address] Medication Information; Medication Problem Social [...] - 05/01/2022 11:47 AM CDT Evelyne with [facility] has requested a call from someone regarding the Azathioprine prescription. Shestates the directions they received still are not accurate. It states to dispense 1 50mg tab daily and then states 100mg daily on the script as well. She says they have been attempting to correct thescript for two weeks now and would rather speak directly to someone to resolve. [phone] * Liu Caballero NP - 04/26/2022 2:27 PM CDTAddended by: LIU CABALLERO on: 04/26/2022 02:27 PM Modules accepted: Orders * Liu Caballero NP - 04/26/2022 2:27 PM CDT Resent correct prescription * Kimberley Pang - 04/26/2022 12:58 PM CDT Spoke with pharmacist prescription quantity does not match up with directions. * Laya Gaxiola - 04/25/2022 3:08 PM CDT Evelyne from [facility] pharmacy called and stated that she is needing clarification on the Pt Azathioprine prescription. Please give Evelyne a call back to discuss [phone] documented in this encounter Plan of Treatment Upcoming Encounters Date Type Department Care Team (Late st Contact Info) Description 09/28/2024 2:30 PM FLAP LINING BINDER Appointment [facility] [address] [place] [address] Josué Cook MD [address] [facility] 8 [place] [address] documented as of this encounter Goals Goal Patient Goal Type Associated Problems Recent Progress Patient-Stated? Author HOME TO [facility] Vannessa Light RN documented as of this encounter Visit Diagnoses Diagnosis Colitis Other and unspecified noninfectious gastroenteritis and colitis documented in this encounter Additional Health Concerns Assessment Noted Time PHQ-9 Depression Total Score: 0 07/06/20 21 4:06 PM FLAP LINING BINDER documented as of this encounter Care Teams Telephone Quotation Clerk Relationship Specialty Start Date End Date Jared Abrams MD PCP - General 08/28/11 07/16/22 documented as of this encounter
--- OUTSIDE RECORDS SUMMARY | 2024-08-18 10:38 | XMS_ITS | Encounter Summary ---
Author Organization [facility] Address [address] [place] [address] [place] [address] Care Team Providers Care Chief Information Security Officer Name Role Phone Servando Torre MD [...] st Contact Info) Description 09/28/2024 2:30 PM CANOE MAKER Appointment [address] [place] [address] [address] Josué Cook MD [address] [address] documented as of this encounter Goals Goal Patient Goal Type Associated Problems Recent Progress Patient-Stated? Author HOME TO [facility]DEPENDENT LIV[facility] Vannessa Light RN documented as of this encounter Visit Diagnoses Not on filedocumented in this encounter Additional Health Concerns Assessment Noted Time PHQ-9 Depression Total Score: 0 07/06/20 21 4:06 PM CANOE MAKER documented as of this encounter Care Teams Chief Information Security Officer Relationship Specialty Start Date End Date Servando Torre MD [address] [place] [address] [address] [place] [address] PCP - General FAMILY PRACTICE 07/17/22 documented as of this encounter
--- OUTSIDE RECORDS SUMMARY | 2024-08-18 10:38 | XMS_ITS | Encounter Summary ---
Author Organization [facility] Address [address] [facility] [place] [address] [place] [address] Care Team Providers Care Biofuels Product Development Manager Name Role Phone Servando Torre MD Primary Care Provider [phone] Encounter Details Date Type Department Care Team (Late st Contact Info) Description 05/01/2023 Therapy Plan [facility] [place] [facility] [address] [place] [address] Josué Cook MD [address] [place] [address] Social History Tobacco Use Types Packs/Day Years [...] st Contact Info) Description 09/28/2024 2:30 PM CONTINUUM OF CARE MANAGER Appointment [address] [id number] Josué Cook MD [address] [address] documented as of this encounter Goals Goal Patient Goal Type Associated Problems Recent Progress Patient-Stated? Author HOME TO INDEPENDENT LIVING [facility] No Vannessa Blackwell RN documented as of this encounter Visit Diagnoses Diagnosis Chronic ulcerative colitis, unspecified complication ([facility]/HCC [facility]/HCC)- Primary Abnormal liver function tests Other abnormal blood chemistry documented in this encounter Additional Health Concerns Assessment Noted Time PHQ-9 Depression Total Score: 0 07/06/20 21 4:06 PM CONTINUUM OF CARE MANAGER documented as of this encounter Care Teams Biofuels Product Development Manager Relationship Specialty Start Date End Date Servando Torre MD [address] [place] [address] [address] [place] [address] PCP - General FAMILY PRACTICE 07/17/22 documented as of this encounter
--- OUTSIDE RECORDS SUMMARY | 2024-08-18 10:39 | XMS_ITS | Encounter Summary ---
Author Organization [facility] Address [address] [facility] [place] [address] [place] [address] Care Team Providers Care Chorus Dancer Name Role Phone Jared Abrams MD Primary Care Provider [phone] Reason for Visit * Reason Onset Date Comments Reschedule 09/20/2021 Encounter Details Date Type Department Care Team (Late st Contact Info) Description 09/20/2021 Telephone [facility] Medical Group [facility]pecialty [facility] - [facility] [address] [facility], [address] [place] [address] Vladimir Parsons MD 3 [facility] [address] [place] [address] Reschedule Social History Tobacco Use Types Packs/Day [...] patient procedure rescheduled to 10/05/2021. Hospital informed. MAKER * Laya Gaxiola - 09/20/2021 2:18 PM CST Pt called and stated that she contacted [facility] to cancel her colonoscopy with . Please give pt acall back to reschedule [phone] MAKER * Kiersten Lanier - 09/20/2021 7:42 AM CST Lisa called today needing to reschedule her surgery tomorrow because of her not feeling well please call to discuss MAKER documented in this encounter Plan of Treatment Upcoming Encounters Date Type Department Care Team (Late st Contact Info) Description 09/28/2024 2:30 PM [address] MAKER App[address] [facility] [address] [place] [address] Josué Cook MD [address] [address] documented as of this encounter Goals Goal Patient Goal Type Associated Problems Recent Progress Patient-Stated? Author HOME TO [facility]DEPENDENT LIV[facility] General No Vannessa Blackwell RN documented as of this encounter Visit Diagnoses Not on filedocumented in this encounter Additional Health Concerns Assessment Noted Time PHQ-9 Depression Total Score: 0 07/06/20 21 4:06 PM PIE MAKER documented as of this encounter Care Teams Chorus Dancer Relationship Specialty Start Date End Date Jared Abrams MD PCP - General 08/28/11 07/16/22 documented as of this encounter
--- OUTSIDE RECORDS SUMMARY | 2024-08-18 10:39 | XMS_ITS | Encounter Summary ---
Author Organization [facility] Address [address] [facility] [place] [address] [place] [address] Care Team Providers Care Keyboarding Teacher Name Role Phone Jared Abrams MD Primary Care Provider [phone] Reason for Visit * Auth/Cert Specialty Diagnoses / Procedures Referred By Angel braswell Referred To Contact Diagnoses Ulcerative pancolitis without complication ([facility] HHS/HCC) Ulcerative colitis with complication, unspecified location ([facility]) Ulcerative pancolitis Procedures SIGMOIDOSCOPY,DIAGNOSTIC SIGMOIDOSCOPY Referral ID Status Reason Start Date Expiration Date Visits Re quested Visits Authorized [id number] 1 1 Encounter Details Date Type Department Care Team (Late st Contact Info) Description 10/05/2021 10:15 AM SELLING SPECIALIST - 10/05/2021 10:36 AM SELLING SPECIALIST Surgery [facility] [address] [place] [address] Indigo Parsons MD [address] [place] [place] [address] Sigmoidoscopy w/ Biopsy Surgery Details Date/Time Status [...] Coronavirus/COVID-19? No / Unsure 10/05/2021 9:27 AM SELLING SPECIALIST documented as of this encounter Last Filed Vital Signs Vital Sign Reading Time Taken Comments Blood Pressure 145/61 10/05/2021 9:49 AM SELLING SPECIALIST Pulse 63 10/05/2021 9:49 AM SELLING SPECIALIST Temperature 37.4 ??C (99.3 ??F) 10/05/2021 9:49 AM CS T Respiratory Rate 20 10/05/2021 9:49 AM SELLING SPECIALIST Oxygen Saturation 97% 10/05/2021 9:49 AM SELLING SPECIALIST Inhaled Oxygen Concentration - - Weight 72.6 kg (160 lb) 10/05/2021 9:49 AM SELLING SPECIALIST Height 157.5 cm (5' 2 ) 10/05/2021 9:49 AM SELLING SPECIALIST Body Mass Index 29.26 10/05/2021 9:49 AM SELLING SPECIALIST documented in this encounter Functional Status * [...] Ivett Moreno RN - 10/05/2021 11:52 AM SELLING SPECIALIST Images from the original note were not [...] bloody stools. Where can I learn more? [employer] https://familydoctor.org/condition/csyczjmmovcx-pvlfc-hneutfy-ibd/ NHS Choices https://www.nhs.uk/conditions/ulcerative-colitis/ Last Reviewed Date 2021-05-01 [...] by the Terms of Use, available at https://www.2[employer]ancouver.CloudTags/en/solutions/lexicomp/about/alvaro Copyright Copyright ?? 2020 [employer]. and its affiliates and/or licensors. All rights reserved. ING SPECIALIST * Attachments The following attachments cannot be sent through Care Everywhere. * Flexible Sigmoidoscopy (Mauritian) documented in this encounter Medications at Time [...] biopsies performed by Indigo Parsons MD at [facility] [...] INDIGO PARSONS MD Voice recognition software utilized ING SPECIALIST documented in this encounter OR Notes * Op Note - Indigo Parsons MD - 10/05/2021 11:38 AM CST [facility] OpNote Sigmoidoscopy w/ Biopsy Procedure Note Radha Allen 10/05/2021 1015 Procedure(s) (LRB): Sigmoidoscopy w/ Biopsy (N/A) Surgeon(s): Indigo Parsons MD Staff: Circulating Nurse 1: Irais Ocasio RN Scrub Person 1: Jody Francisco, HELPDESK TECHNICIAN Anesthesia: Local No anesthesia staff entered. Pre-Op [...] Time: 11:38 AM Voice recognition software utilized. ING SPECIALIST documented in this encounter Plan of Treatment Upcoming Encounters Date Type Department Care Team (Late st Contact Info) Description 09/28/2024 2:30 PM SELLING SPECIALIST Appointment [address] [address] Josué Cook MD [address] [address] documented as of this encounter Goals Goal Patient Goal Type Associated Problems Recent Progress Patient-Stated? Author HOME TO [facility] Vannessa Light RN documented as of this encounter Procedures Procedure Name Priority Date/Time Associated Diagnosis Comments SIGMOIDOSCOPY,FELICIANO GNOSTIC 10/05/2021 11:30 AM SELLING SPECIALIST Ulcerative pancolitis without complication ([facility]/HCC) Ulcerative colitis with complication, unspecified location ([facility]) Special Needs 1000 PATHOLOGY Routine 10/05/2021 12:00 AM SELLING SPECIALIST documented in this encounter Results * Pathology (10/05/2021 12:00 AM SELLING SPECIALIST) PATHOLOGY [facility] ? Department of Laboratory Medicine ?[address] ?[place] [address] ? , extension [phone] ? Pathology Report ? Surgical Pathology Report Name: RADHA ALLEN ? Specimen #: [id number] Age: 8 1945 (Age: 76) ?Location: [facility] Sex: F ?Procedure Date: 10/05/2021 Hospital #: [id number] ?Date Received: 10/08/2021 Date Reported: 10/09/2021 Provider: INDIGO PARSONS MD Source: Colon, left, biopsies Clinical History: Ulcerative pancolitis. Gross Description: Received in formalin, labeled with a patient label and as left colon biopsy are five pieces of garcia tissue ranging from 0.1 to 0.3 cm. ??The specimen is entirely submitted in cassette 1. Gross examination (when applicable), interpretation and sign-out were performed at [facility], [address] [place], [place], [address]. FINAL DIAGNOSIS: COLON, LEFT, BIOPSIES: ? - MODERATELY ACTIVE CHRONIC COLITIS. ? - NO GRANULOMAS OR DYSPLASIA. Electronically Signed Out ? NICOLA DAVILA MD [facility] Tissue specimen (specimen) COLON STRUCTURE / Unknown 10/05/2021 11:36 AM SELLING SPECIALIST us Indigo Parsons MD PATHOLOGY/CYTOLOGY ORDERABLES Fi nal Result [facility] [address] [place] [address], [id number] documented in this encounter Visit Diagnoses Diagnosis [...] Total Score: 0 07/06/20 21 4:06 PM SELLING SPECIALIST documented as of this encounter Care Teams Keyboarding Teacher Relationship Specialty Start Date End Date Jared Abrams MD PCP - General 08/28/11 07/16/22 documented as of this encounter
--- OUTSIDE RECORDS SUMMARY | 2024-08-18 10:39 | XMS_ITS | Encounter Summary ---
Author Organization [facility] Address [address] [facility] [place] [address] [place] [address] Care Team Providers Care Locker Room Attendant Name Role Phone Jared Abrams MD Primary Care Provider [phone] Encounter Details Date Type Department Care Team [...] Coronavirus/COVID-19? No / Unsure 10/05/2021 9:27 AM LINOTYPER documented as of this encounter Functional Status [...] st Contact Info) Description 09/28/2024 2:30 PM LINOTYPER Appointment [address] [address] Josué Cook MD [address] [address] documented as of this encounter Goals Goal Patient Goal Type Associated Problems Recent Progress Patient-Stated? Author HOME TO INDEPENDENT LIVING General No Vannessa Blackwell RN documented as of this encounter Visit Diagnoses Not on filedocumented in this encounter Additional Health Concerns Assessment Noted Time PHQ-9 Depression Total Score: 0 07/06/20 21 4:06 PM LINOTYPER documented as of this encounter Care Teams Locker Room Attendant Relationship Specialty Start Date End Date Jared Abrams MD PCP - General 08/28/11 07/16/22 documented as of this encounter
--- OUTSIDE RECORDS SUMMARY | 2024-08-18 10:39 | XMS_ITS | Encounter Summary ---
Author Organization [facility] Address [address] [facility] [place] [address] [place] [address] Care Team Providers Care Celery Wrapper Name Role Phone Jared Abrams MD Primary Care Provider [phone] Reason for Visit * Reason Comments Follow Up On mesalamine also a zathioprine here for follow up states the new med isnt helping much * Consultation/Treatment (Routine) - Closed Specialty Diagnoses / Procedures Referred By Angel brasewll Referred To Contact GASTROENTEROLOGY Diagnoses FU Procedures FOLLOW UP Jared Abrams MD [facility] [place] [address] Phone: tel: fax: Vladimir Parsons MD [address] [address] Phone: tel: fax: Referral ID Status Reason Start Date Expiration Date Visits Re quested Visits Authorized [id number] Closed 11/16/2020 07/06/2022 100 100 Encounter Details Date Type Department Care Team (Latest Contact Info) Description 04/19/2022 2:00 PM CDT Office Visit [facility] G[facility] [address] [address] Vladimir Parsons MD [address] [address] Follow Up (On mesalamine also [...] biopsies performed by Vladimir Parsons MD at [facility] OR ??? PARTIAL HIP REPLACEMENT Left ??? SIGMOIDOSCOPY N/A 10/05/2021 Sigmoidoscopy w/ Biopsy performed by Vladimir Parsons MD at [facility] OR ??? TUBAL LIGATION PE: Filed [...] st Contact Info) Description 09/28/2024 2:30 PM CHAPTER RELATIONS ADMINISTRATOR Appointment [address] [address] Josué Cook MD [address] [address] documented as of this encounter Goals Goal Patient Goal Type Associated Problems Recent Progress Patient-Stated? Author HOME TO INDEPENDENT LIVING General Vannessa Light, RN documented as of this encounter Visit Diagnoses Diagnosis Colitis- Primary Other and unspecified noninfectious gastroenteritis and colitis documented in this encounter Additional Health Concerns Assessment Noted Time PHQ-9 Depression Total Score: 0 07/06/20 21 4:06 PM CHAPTER RELATIONS ADMINISTRATOR documented as of this encounter Care Teams Celery Wrapper Relationship Specialty Start Date End Date Jared Abrams MD PCP - General 08/28/11 07/16/22 documented as of this encounter
--- OUTSIDE RECORDS SUMMARY | 2024-08-18 10:39 | XMS_ITS | Encounter Summary ---
Author Organization [facility] Address [address] [facility] [place] [address] [place] [address] Care Team Providers Care Barrel Plater Name Role Phone Jared Abrams MD Primary Care Provider [phone] Reason for Visit * Reason Onset Date Comments Prior Authorization 07/12/2021 Encounter Details Date Type Department Care Team (Late st Contact Info) Description 07/12/2021 Telephone [facility] Medical [facility] Multispecialty Care - [facility] 3 [facility], [address] [place] [id number] Vladimir Parsons MD 3 [facility] [address] [place] [address] Prior Authorization Social History Tobacco Use Types [...] COVID-19? No / Unsure 07/06/2021 2:18 PM NET SOFTWARE DEVELOPER documented as of this encounter Functional [...] auth for sigmoidoscopy is not required. Ref# [id number] SOFTWARE DEVELOPER documented in this encounter Plan of Treatment Upcoming Encounters Date Type Department Care Team (Late st Contact Info) Description 09/28/2024 2:30 PM NET SOFTWARE DEVELOPER Appointment [facility] [id number] [place] [address] Josué Cook MD [address] [facility] [address] [place] [address] documented as of this encounter Goals Goal Patient Goal Type Associated Problems Recent Progress Patient-Stated? Author HOME TO INDEPENDENT LIVING General Vannessa Light RN documented as of this encounter Visit Diagnoses Not on filedocumented in this encounter Additional Health Concerns Assessment Noted Time PHQ-9 Depression Total Score: 0 07/06/20 21 4:06 PM NET SOFTWARE DEVELOPER documented as of this encounter Care Teams Barrel Plater Relationship Specialty Start Date End Date Jared Abrams MD PCP - General 08/28/11 07/16/22 documented as of this encounter
--- OUTSIDE RECORDS SUMMARY | 2024-08-18 10:39 | XMS_ITS | Encounter Summary ---
Author Organization [facility] Address [address] [facility] [place] [address] [place] [address] Care Team Providers Care Print Operator Name Role Phone Jared Abrams MD Primary Care Provider [phone] Encounter Details Date Type Department Care Team [...] st Contact Info) Description 09/28/2024 2:30 PM SENIOR DRUPAL DEVELOPER Appointment [address] [address] Josué Cook MD [address] [address] documented as of this encounter Goals Goal Patient Goal Type Associated Problems Recent Progress Patient-Stated? Author HOME TO INDEPENDENT LIVING General No Vannessa Blackwell RN documented as of this encounter Visit Diagnoses Not on filedocumented in this encounter Additional Health Concerns Assessment Noted Time PHQ-9 Depression Total Score: 0 07/06/20 21 4:06 PM SENIOR DRUPAL DEVELOPER documented as of this encounter Care Teams Print Operator Relationship Specialty Start Date End Date Jared Abrams MD PCP - General 08/28/11 07/16/22 documented as of this encounter
--- OUTSIDE RECORDS SUMMARY | 2024-08-18 10:39 | XMS_ITS | Encounter Summary ---
Author Organization [facility] Address [address] [facility] [place] [address] [place] [address] Care Team Providers Care Manager Emergency Department Name Role Phone Jared Abrams MD Primary Care Provider [phone] Encounter Details Date Type Department Care Team (Late st Contact Info) Description 07/10/2021 Orders Only [facility] Multispecialty Care - [address] [place] [address] Vladimir Parsons MD [address] [facility] [address] [place] [address] Social History Tobacco Use Types Packs/Day Years [...] COVID-19? No / Unsure 07/06/2021 2:18 PM ROUSTABOUT documented as of this encounter Functional Status [...] st Contact Info) Description 09/28/2024 2:30 PM ROUSTABOUT Appointment [facility] [address] [place] [address] Josué Cook MD [address] [address] documented as of this encounter Goals Goal Patient Goal Type Associated Problems Recent Progress Patient-Stated? Author HOME TO [facility] No Vannessa Blackwell RN documented as of this encounter Visit Diagnoses Diagnosis Ulcerative colitis with complication, unspecified location ([facility])- Primary documented in this encounter Additional Health Concerns Assessment Noted Time PHQ-9 Depression Total Score: 0 07/06/20 21 4:06 PM ROUSTABOUT documented as of this encounter Care Teams Manager Emergency Department Relationship Specialty Start Date End Date Jared Abrams MD PCP - General 08/28/11 07/16/22 documented as of this encounter
--- OUTSIDE RECORDS SUMMARY | 2024-08-18 10:39 | XMS_ITS | Encounter Summary ---
Author Organization [facility] Address [address] [facility] [place] [address] [place] [address] Care Team Providers Care Press Tender Long Goods Name Role Phone Jared Abrams MD Primary Care Provider [phone] Encounter Details Date Type Department Care Team [...] Author Status Yes 03/23/2020 1:13 PM CDT Hnanah Reagan RN Active * Do you have [...] st Contact Info) Description 09/28/2024 2:30 PM GLOBAL PROGRAM DIRECTOR Appointment [address] [address] Josué Cook MD [address] [address] documented as of this encounter Goals Goal Patient Goal Type Associated Problems Recent Progress Patient-Stated? Author HOME TO [facility] General No Vannessa Blackwell RN documented as of this encounter Visit Diagnoses Not on filedocumented in this encounter Additional Health Concerns Assessment Noted Time PHQ-9 Depression Total Score: 0 07/06/20 21 4:06 PM GLOBAL PROGRAM DIRECTOR documented as of this encounter Care Teams Press Tender Long Goods Relationship Specialty Start Date End Date Jared Abrams MD PCP - General 08/28/11 07/16/22 documented as of this encounter
--- OUTSIDE RECORDS SUMMARY | 2024-08-18 10:39 | XMS_ITS | Encounter Summary ---
Author Organization [facility] Address [address] [facility] [place] [address] [place] [address] Care Team Providers Care Sinter Feeder Name Role Phone Jared Abrams MD Primary Care Provider [phone] Encounter Details Date Type Department Care Team [...] st Contact Info) Description 09/28/2024 2:30 PM MAGNAFLUX OPERATOR Appointment [address] [address] Josué Cook MD [address] [address] documented as of this encounter Goals Goal Patient Goal Type Associated Problems Recent Progress Patient-Stated? Author HOME TO [facility] General No Vannessa Blackwell RN documented as of this encounter Visit Diagnoses Not on filedocumented in this encounter Additional Health Concerns Assessment Noted Time PHQ-9 Depression Total Score: 0 07/06/20 21 4:06 PM MAGNAFLUX OPERATOR documented as of this encounter Care Teams Sinter Feeder Relationship Specialty Start Date End Date Jared Abrams MD PCP - General 08/28/11 07/16/22 documented as of this encounter
--- OUTSIDE RECORDS SUMMARY | 2024-08-18 10:39 | XMS_ITS | Encounter Summary ---
Author Organization [facility] Address [address] [facility] [place] [address] [place] [address] Care Team Providers Care Town Planner Name Role Phone Jared Abrams MD Primary Care Provider [phone] Encounter Details Date Type Department Care Team [...] st Contact Info) Description 09/28/2024 2:30 PM COMPUTER SYSTEM TECHNICIAN Appointment [address] [address] Josué Cook MD [address] [address] documented as of this encounter Goals Goal Patient Goal Type Associated Problems Recent Progress Patient-Stated? Author HOME TO [facility] General No Vannessa Blackwell RN documented as of this encounter Visit Diagnoses Not on filedocumented in this encounter Additional Health Concerns Assessment Noted Time PHQ-9 Depression Total Score: 0 07/06/20 21 4:06 PM COMPUTER SYSTEM TECHNICIAN documented as of this encounter Care Teams Town Planner Relationship Specialty Start Date End Date Jared Abrams MD PCP - General 08/28/11 07/16/22 documented as of this encounter
--- OUTSIDE RECORDS SUMMARY | 2024-08-18 10:39 | XMS_ITS | Encounter Summary ---
Author Organization [facility] Address [address] [facility] [place] [address] [place] [address] Care Team Providers Care Welder Gas Name Role Phone Jared Abrams MD Primary Care Provider [phone] Encounter Details Date Type Department Care Team (Late st Contact Info) Description 10/05/2021 Medication Management [facility] Medical Group Multispecialty Care - [address] [place] [address] Vladimir Parsons MD [address] [place] [address] [address] [place] [address] Social History Tobacco Use Types Packs/Day Years [...] Coronavirus/COVID-19? No / Unsure 10/05/2021 9:27 AM BUSHWALKING GUIDE documented as of this encounter Functional Status [...] st Contact Info) Description 09/28/2024 2:30 PM BUSHWALKING GUIDE Appointment [facility] [address] [place] [address] Josué Cook MD [address] [address] documented as of this encounter Goals Goal Patient Goal Type Associated Problems Recent Progress Patient-Stated? Author HOME TO [facility] No Vannessa Blackwell RN documented as of this encounter Visit Diagnoses Diagnosis Ulcerative pancolitis without complication ([facility]) documented in this encounter Additional Health Concerns Assessment Noted Time PHQ-9 Depression Total Score: 0 07/06/20 21 4:06 PM BUSHWALKING GUIDE documented as of this encounter Care Teams Welder Gas Relationship Specialty Start Date End Date Jared Abrams MD PCP - General 08/28/11 07/16/22 documented as of this encounter
--- OUTSIDE RECORDS SUMMARY | 2024-08-18 10:39 | XMS_ITS | Encounter Summary ---
Author Organization [facility] Address [address] [facility] [place] [address] [place] [address] Care Team Providers Care Rock Picker Name Role Phone Jared Abrams MD Primary Care Provider [phone] Reason for Visit * Reason Onset Date Comments Diarrhea 01/04/2022 Appointment Request 01/04/2022 Encounter Details Date Type Department Care Team (Late st Contact Info) Description 01/04/2022 Telephone [facility] Multispecialty Care - [facility] [address] [facility], [address] [place] [address] Vladimir Parsons MD [address] [facility] [address] [place] [address] Diarrhea; Appointment Request Social History [...] give Pt a call back to discuss [phone] documented in this encounter Plan of Treatment Upcoming Encounters Date Type Department Care Team (Late st Contact Info) Description 09/28/2024 2:30 PM WELFARE VISITOR Appointment [address] [address] Josué Cook MD [address] [address] documented as of this encounter Goals Goal Patient Goal Type Associated Problems Recent Progress Patient-Stated? Author HOME TO [facility] General Vannessa Light, [place] documented as of this encounter Visit Diagnoses Not on filedocumented in this encounter Additional Health Concerns Assessment Noted Time PHQ-9 Depression Total Score: 0 07/06/20 21 4:06 PM WELFARE VISITOR documented as of this encounter Care Teams Rock Picker Relationship Specialty Start Date End Date Jared Abrams MD PCP - General 08/28/11 07/16/22 documented as of this encounter
--- OUTSIDE RECORDS SUMMARY | 2024-08-18 10:39 | XMS_ITS | Encounter Summary ---
Author Organization [facility] Address [address] [place] [address] [place] [address] Care Team Providers Care Design Specialist Name Role Phone Jared Abrams MD Primary Care Provider [phone] Encounter Details Date Type Department Care Team (Late st Contact Info) Description 01/24/2022 Medication Management [facility] Medical Group Multispecialty Care - [address] [place] [address] Vladimir Parsons MD [address] [place] [address] [address] [place] [address] Social History Tobacco Use Types Packs/Day Years [...] st Contact Info) Description 09/28/2024 2:30 PM FILTER ASSEMBLER Appointment [facility] [address] [place] [address] Josué Cook MD [address] [address] documented as of this encounter Goals Goal Patient Goal Type Associated Problems Recent Progress Patient-Stated? Author HOME TO [facility] No Vannessa Blackwell RN documented as of this encounter Visit Diagnoses Diagnosis Ulcerative colitis with complication, unspecified location ([facility])- Primary documented in this encounter Additional Health Concerns Assessment Noted Time PHQ-9 Depression Total Score: 0 07/06/20 21 4:06 PM FILTER ASSEMBLER documented as of this encounter Care Teams Design Specialist Relationship Specialty Start Date End Date Jared Abrams MD PCP - General 08/28/11 07/16/22 documented as of this encounter
--- OUTSIDE RECORDS SUMMARY | 2024-08-18 10:39 | XMS_ITS | Encounter Summary ---
Author Organization [facility] Address [address] [facility] [place] [place] [address] [place] [address] Care Team Providers Care Plastic Installer Name Role Phone Jared Abrams MD Primary Care Provider [phone] Reason for Visit * Auth/Cert Specialty Diagnoses / Procedures Referred By Angel braswell Referred To Contact Diagnoses Ulcerative pancolitis without complication ([facility]/HCC) Ulcerative colitis with complication, unspecified location ([facility]) Ulcerative pancolitis Procedures SIGMOIDOSCOPY,DIAGNOSTIC SIGMOIDOSCOPY Referral ID Status Reason Start Date Expiration Date Visits Re quested Visits Authorized [id number] 1 1 Encounter Details Date Type Department Care Team (Latest Contact Info) Description 10/05/2021 9:20 AM SQL DEVELOPER DBA - 10/05/2021 12:00 PM [facility] Hospital Encounter [facility] [address] [place] [address] Indigo Parsons MD [address] [facility] [address] [address] Discharge Disposition: Home or Self Care (Routine [...] Coronavirus/COVID-19? No / Unsure 10/05/2021 9:27 AM SQL DEVELOPER DBA documented as of this encounter Last Filed Vital Signs Vital Sign Reading Time Taken Comments Blood Pressure 148/59 10/05/2021 11:40 AM SQL DEVELOPER DBA Pulse 72 10/05/2021 11:40 AM SQL DEVELOPER DBA Temperature 37.1 ??C (98.7 ??F) 10/05/2021 11:[address] Respiratory Rate 16 10/05/2021 11:40 AM SQL DEVELOPER DBA Oxygen Saturation 98% 10/05/2021 11:40 AM SQL DEVELOPER DBA Inhaled Oxygen Concentration - - Weight 72.6 kg (160 lb) 10/05/2021 9:49 AM SQL DEVELOPER DBA Height 157.5 cm (5' 2 ) 10/05/2021 9:49 AM SQL DEVELOPER DBA Body Mass Index 29.26 10/05/2021 9:49 AM SQL DEVELOPER DBA documented in this encounter Functional Status * [...] Ivett Moreno RN - 10/05/2021 11:52 AM SQL DEVELOPER DBA Images from the original note were not [...] bloody stools. Where can I learn more? [employer] https://familydoctor.org/condition/yebanoejxils-onwwq-thkzrlk-ibd/ NHS Choices https://www.nhs.uk/conditions/ulcerative-colitis/ Last Reviewed Date 2021-05-01 [...] or approved for treating a specific patient. [employer] and its affiliates disclaim any warranty or liability relating to this information or the use thereof. The use of this information is governed by the Terms of Use, available at https://www.iHealthHome.Communication Intelligence/en/solutions/lexicomp/about/alvaro Copyright Copyright ?? 2020 [employer]To[employer], Inc. and its affiliates and/or licensors. All rights reserved. DEVELOPER DBA * Attachments The following attachments cannot be sent through Care Everywhere. * Flexible Sigmoidoscopy ([place] Island[place]) documented in this encounter Medications at Time [...] by Indigo Parsons MD at [facility] OR ??? PARTIAL HIP REPLACEMENT Left [...] INDIGO PARSONS MD Voice recognition software utilized DEVELOPER DBA documented in this encounter OR Notes * Op Note - Indigo Parsons MD - 10/05/2021 11:38 AM CST [facility] OpNote Sigmoidoscopy w/ Biopsy Procedure Note Radhafatoumata Tolbert Alejandro 10/05/2021 1015 Procedure(s) (LRB): Sigmoidoscopy w/ Biopsy (N/A) Surgeon(s): Indigo Parsons MD Staff: Circulating Nurse 1: Irais Ocasio RN Scrub Person 1: Jody Francisco, FURNITURE REPAIR TECHNICIAN Anesthesia: Local No anesthesia staff entered. [...] Time: 11:38 AM Voice recognition software utilized. DEVELOPER DBA documented in this encounter Plan of Treatment Upcoming Encounters Date Type Department Care Team (Late st Contact Info) Description 09/28/2024 2:30 PM SQL DEVELOPER DBA Appointment [facility] [address] [place] [address] Josué Cook MD [address] [facility] [address] [place] [address] documented as of this encounter Goals Goal Patient Goal Type Associated Problems Recent Progress Patient-Stated? Author HOME TO [facility] Vannessa Light RN documented as of this encounter Procedures Procedure Name Priority Date/Time Associated Diagnosis Comments SIGMOIDOSCOPY,FELICIANO GNOSTIC 10/05/2021 11:30 AM SQL DEVELOPER DBA Ulcerative pancolitis without complication (CMS/HCC HHS/HCC) Ulcerative colitis with complication, unspecified location (CMS/HCC HHS/HCC) Special Needs 1000 PATHOLOGY Routine 10/05/2021 12:00 AM SQL DEVELOPER DBA documented in this encounter Results * Pathology (10/05/2021 12:00 AM SQL DEVELOPER DBA) PATHOLOGY [facility] ? Department of Laboratory Medicine ?[address] ?[place] [address] ? , extension [phone] ? Pathology Report ? Surgical Pathology Report Name: RADHA ALLEN ? Specimen #: [id number] Age: 8 1945 (Age: 76) ?Location: [facility] Sex: F ?Procedure Date: 10/05/2021 Hospital #: [id number] ?Date Received: 10/08/2021 Date Reported: 10/09/2021 Provider: INDIGO PARSONS MD Source: Colon, left, biopsies Clinical History: Ulcerative pancolitis. Gross Description: Received in formalin, labeled with a patient label and as left colon biopsy are five pieces of garcia tissue ranging from 0.1 to 0.3 cm. ??The specimen is entirely submitted in cassette 1. Gross examination (when applicable), interpretation and sign-out were performed at [facility], [address] [place] [address], [place], [place], [address]. FINAL DIAGNOSIS: COLON, LEFT, BIOPSIES: ? - MODERATELY ACTIVE CHRONIC COLITIS. ? - NO GRANULOMAS OR DYSPLASIA. Electronically Signed Out ? NICOLA DAVILA MD [facility] Tissue specimen (specimen) COLON STRUCTURE / Unknown 10/05/2021 11:36 AM SQL DEVELOPER DBA us Indigo Parsons MD PATHOLOGY/CYTOLOGY ORDERABLES Fi nal Result [facility] [address] [place] [address], [place] [phone] [id number] documented in this encounter Visit Diagnoses Diagnosis Ulcerative pancolitis without complication ([facility]HS/HCC) Ulcerative colitis with complication, unspecified location ([facility]) Colitis Other and unspecified noninfectious gastroenteritis and colitis documented in this encounter Admitting Diagnoses Diagnosis Ulcerative pancolitis without complication ([facility]) Colitis Other and unspecified noninfectious gastroenteritis and colitis documented in this encounter Additional Health Concerns Assessment Noted Time PHQ-9 Depression Total Score: 0 07/06/20 21 4:06 PM SQL DEVELOPER DBA documented as of this encounter Care Teams Plastic Installer Relationship Specialty Start Date End Date Jared Abrams MD PCP - General 08/28/11 07/16/22 documented as of this encounter
--- OUTSIDE RECORDS SUMMARY | 2024-08-18 10:39 | XMS_ITS | Encounter Summary ---
Author Organization [facility] Address [address] [facility] [address] [place] [address] Care Team Providers Care Post Anesthesia Room Nurse Name Role Phone Jared Abrams MD Primary Care Provider [phone] Encounter Details Date Type Department Care Team (Latest Contact Info) Description 01/17/2022 9:48 AM CDT - 01/17/2022 11:59 PM CDT Hospital Encounter [facility] [address] [place] [address] Vladimir Parsons MD [address] [place] [phone] Discharge Disposition: Home or Self Care (Routine [...] 01/17/2022 9:50 AM CDT Call x1 left [facility] for pt to call the office for test results * Riri Robles LPN - 01/17/2022 9:50 AM CDT PT AWARE OF TEST RESULTS, MEDICATION AND FUTURE TESTING documented in this encounter Plan of Treatment Upcoming Encounters Date Type Department Care Team (Late st Contact Info) Description 09/28/2024 2:30 PM PATTERN PERFORATING MACHINE OPERATOR Appointment [address] [address] Josué Cook MD [address] [facility] [address] [place] [address] documented as of this encounter Goals Goal [...] NIL (TB) 0.02 01/22/2022 2:30 PM CDT [facility] MITOGEN NIL >10.00 01/22/2022 2:30 PM CDT [facility] TB1 AG MINUS NIL 0.01 01/22/2022 2:30 PM CDT [facility] TB2 AG MINUS NIL 0.01 01/22/2022 2:30 PM CDT [facility] 01/17/2022 9:57 AM CDT Vladimir Parsons MD LABORATORY Final Result [facility] [address] [place] [address], * HEPATITIS PANEL,ACUTE (01/17/2022 9:57 AM CDT) HEPATITIS B SURFACE AG NON-REACTI VE NON-REACTI VE 01/17/2022 3:46 PM CDT [facility] HEP B CORE IGM NON-REACTI VE NON-REACTI VE 01/17/2022 7:25 PM CDT [facility] HAV IGM NON-REACTI VE NON-REACTI VE 01/17/2022 4:06 PM CDT [facility] HEPATITIS C AB NON-REACTI VE NON-REACTI VE 01/17/2022 4:05 PM CDT [facility] 01/17/2022 9:57 AM CDT Vladimir Parsons MD LABORATORY Final Result [facility] [address] [place] [address], * TPMT ACTIVITY (01/17/2022 9:57 AM CDT) TPMT ACTIVITY 13 01/24/2022 12:46 AM CDT [employer] [facility] Comment: Units: ??nmol/hr/mL RBC Reference Range for TPMT Activity: ??>12 ? Normal 4-12 ? Heterozygote or low metabolizer ?? <4 ? Homozygote Deficient Range This test was developed and its analytical performance characteristics have been determined by [employer] [facility]. It has not been cleared or approved by FDA. This assay has been validated pursuant to the CLIA regulations and is used for clinical purposes. Test performed by [employer] [facility] ? [address] [facility], ? [place] [address] ? Wet Pour Supervisor: Lillian Duong MD,PHD,JOVANY Test Reported by Sierra Nelson, [employer] [place], [address] [place], [place] Gamal Gao M.D., Ph.D., Director of Laboratories , [place] [id number] 01/17/2022 9:57 AM CDT us Vladimir Parsons MD LABORATORY Final Result Performing Organization Address City/State/[facility] Co de Phone Number [facility] [address] [place] [address], [place] [phone] documented in this encounter Visit Diagnoses Diagnosis UC (ulcerative colitis confined to rectum) ([facility]) Ulcerative (chronic) proctitis Diarrhea, unspecified type documented in this encounter Additional Health Concerns Assessment Noted Time PHQ-9 Depression Total Score: 0 07/06/20 21 4:06 PM PATTERN PERFORATING MACHINE OPERATOR documented as of this encounter Care Teams Post Anesthesia Room Nurse Relationship Specialty Start Date End Date Jared Abrams MD PCP - General 08/28/11 07/16/22 documented as of this encounter
--- OUTSIDE RECORDS SUMMARY | 2024-08-18 10:39 | XMS_ITS | Encounter Summary ---
Author Organization [facility] Address [address] [facility] [place] [address] [place] [address] Care Team Providers Care Filter Plant Operator Name Role Phone Jared Abrams MD Primary Care Provider [phone] Encounter Details Date Type Department Care Team (Late st Contact Info) Description 09/04/2021 Orders Only [facility] Medical Group Multispecialty Care - [address] [place] [phone] Vladimir Parsons MD [address] [facility] [address] [place] [address] Social History Tobacco Use Types Packs/Day Years [...] st Contact Info) Description 09/28/2024 2:30 PM HOME IMPROVEMENT INSTALLER Appointment [facility] [phone] [place] [address] Josué Cook MD [address] [address] documented as of this encounter Goals Goal Patient Goal Type Associated Problems Recent Progress Patient-Stated? Author HOME TO [facility]ENT [facility]IV[facility] General No Vannessa Blackwell RN documented as of this encounter Visit Diagnoses Diagnosis Ulcerative pancolitis without complication (CMS/HCC [facility]/HCC)- Primary documented in this encounter Additional Health Concerns Assessment Noted Time PHQ-9 Depression Total Score: 0 07/06/20 21 4:06 PM HOME IMPROVEMENT INSTALLER documented as of this encounter Care Teams Filter Plant Operator Relationship Specialty Start Date End Date Jared Abrams MD PCP - General 08/28/11 07/16/22 documented as of this encounter
--- OUTSIDE RECORDS SUMMARY | 2024-08-18 10:39 | XMS_ITS | Encounter Summary ---
Author Organization [facility] Address [address] [facility] [place] [address] [place] [address] Care Team Providers Care Energy Efficiency Finance Manager Name Role Phone Jared Abrams MD Primary Care Provider [phone] Reason for Visit * Reason Onset Date Comments Appointment Request 07/12/2021 Encounter Details Date Type Department Care Team (Late st Contact Info) Description 07/12/2021 Telephone [facility] One Day Services [address] [place], [place] [id number] Vladimir Parsons MD [address] [place] [address] Appointment Request Social History Tobacco Use [...] COVID-19? No / Unsure 07/06/2021 2:18 PM SHANK PINNER documented as of this encounter Functional Status [...] st Contact Info) Description 09/28/2024 2:30 PM SHANK PINNER Appointment [facility] [id number] [place] [address] Josué Cook MD [address] [address] documented as of this encounter Goals Goal Patient Goal Type Associated Problems Recent Progress Patient-Stated? Author HOME TO [facility] No Vannessa Blackwell RN documented as of this encounter Visit Diagnoses Not on filedocumented in this encounter Additional Health Concerns Assessment Noted Time PHQ-9 Depression Total Score: 0 07/06/20 21 4:06 PM SHANK PINNER documented as of this encounter Care Teams Energy Efficiency Finance Manager Relationship Specialty Start Date End Date Jared Abrams MD PCP - General 08/28/11 07/16/22 documented as of this encounter
--- OUTSIDE RECORDS SUMMARY | 2024-08-18 10:39 | XMS_ITS | Encounter Summary ---
Author Organization [facility] Address [address] [place] [address] [place] [address] Care Team Providers Care Fraud Manager Name Role Phone Jared Abrams MD Primary Care Provider Reason for Visit * Reason Onset Date Comments Prior Authorization 01/25/2022 Encounter Details Date Type Department Care Team (Late st Contact Info) Description 01/25/2022 Telephone [facility] Multispecialty Care - [facility] [address] [facility], [address] [place] [phone] Vladimir Parsons MD 3 [facility] [address] [place] [address] Prior Authorization Social History Tobacco Use Types [...] auth has been initiated per Jody at [facility] we will receive a fax decision [...] the Azathioprine 50mg script. option #3, phone [phone] documented in this encounter Plan of Treatment Upcoming Encounters Date Type Department Care Team (Late st Contact Info) Description 09/28/2024 2:30 PM WEBSITE PROGRAMMER Appointment [facility] [address] [place] [address] Josué Cook MD [facility] [address] [address] documented as of this encounter Goals Goal Patient Goal Type Associated Problems Recent Progress Patient-Stated? Author HOME TO [facility] General No Vannessa Blackwell RN documented as of this encounter Visit Diagnoses Not on filedocumented in this encounter Additional Health Concerns Assessment Noted Time PHQ-9 Depression Total Score: 0 07/06/20 21 4:06 PM WEBSITE PROGRAMMER documented as of this encounter Care Teams Fraud Manager Relationship Specialty Start Date End Date Jared Abrams MD PCP - General 08/28/11 07/16/22 documented as of this encounter
--- OUTSIDE RECORDS SUMMARY | 2024-08-18 10:39 | XMS_ITS | Encounter Summary ---
Author Organization [facility] Address [address] [facility] [place] [address] [place] [address] Care Team Providers Care Horse Breaker Name Role Phone Jared Abrams MD Primary Care Provider [phone] Reason for Visit * Reason Onset Date Comments Medication 10/12/2021 Encounter Details Date Type Department Care Team (Late st Contact Info) Description 10/12/2021 Telephone [facility] Multispecialty Care - [facility] [address] [facility], [address] [place] [phone] Corrina Muniz NP 3 [facility] [address] [place], [place] [phone] Medication Social History Tobacco Use Types Packs/Day [...] Coronavirus/COVID-19? No / Unsure 10/05/2021 9:27 AM CONCESSION ATTENDANT documented as of this encounter Functional Status [...] st Contact Info) Description 09/28/2024 2:30 PM CONCESSION ATTENDANT Appointment [facility] Day [facility] [address] [place] [address] Josué Cook MD [address] [address] documented as of this encounter Goals Goal Patient Goal Type Associated Problems Recent Progress Patient-Stated? Author HOME TO [facility] General No Vannessa Blackwell RN documented as of this encounter Visit Diagnoses Not on filedocumented in this encounter Additional Health Concerns Assessment Noted Time PHQ-9 Depression Total Score: 0 07/06/20 21 4:06 PM CONCESSION ATTENDANT documented as of this encounter Care Teams Horse Breaker Relationship Specialty Start Date End Date Jared Abrams MD PCP - General 08/28/11 07/16/22 documented as of this encounter
--- OUTSIDE RECORDS SUMMARY | 2024-08-18 10:39 | XMS_ITS | Encounter Summary ---
Author Organization [facility] Address [address] [facility] [place] [address] [place] [address] Care Team Providers Care Tie Cutter Name Role Phone Jared Abrams MD Primary Care Provider [phone] Reason for Visit * Reason Onset Date Comments Called To Cancel Office Appt. 07/12/2021 Encounter Details Date Type Department Care Team (Late st Contact Info) Description 07/12/2021 Telephone [facility] Multispecialty Care - [facility] [address] [facility], [address] [place] [phone] Vladimir Parsons MD 3 [facility] [address] [place], [place] [phone] Called To Cancel Office Appt. Social History [...] COVID-19? No / Unsure 07/06/2021 2:18 PM GAS MAIN FITTER HELPER documented as of this encounter Functional Status [...] No follow up needed at this time. MAIN FITTER HELPER documented in this encounter Plan of Treatment Upcoming Encounters Date Type Department Care Team (Late st Contact Info) Description 09/28/2024 2:30 PM GAS MAIN FITTER HELPER Appointment [facility] [address] [place] [address] Josué Cook MD [address] [facility] 8 [place] [address] documented as of this encounter Goals Goal Patient Goal Type Associated Problems Recent Progress Patient-Stated? Author HOME TO [facility] No Vannessa Blackwell RN documented as of this encounter Visit Diagnoses Not on filedocumented in this encounter Additional Health Concerns Assessment Noted Time PHQ-9 Depression Total Score: 0 07/06/20 21 4:06 PM GAS MAIN FITTER HELPER documented as of this encounter Care Teams Tie Cutter Relationship Specialty Start Date End Date Jared Abrams MD PCP - General 08/28/11 07/16/22 documented as of this encounter
--- OUTSIDE RECORDS SUMMARY | 2024-08-18 10:39 | XMS_ITS | Encounter Summary ---
Author Organization [facility] Address [address] [place] [address] [place] [address] Care Team Providers Care Roast Master Name Role Phone Jared Abrams MD Primary Care Provider [phone] Reason for Visit * Reason Comments Diarrhea Diarrhea off and on since since procedure in September. She goes about 5 to 6 times a day. Mesalamine does not seems to have made a difference. * Consultation/Treatment (Routine) - Closed Specialty Diagnoses / Procedures Referred By Angel braswell Referred To Contact GASTROENTEROLOGY Diagnoses FOLLOW UP Jared Abrams MD [facility] [place] [address] Phone: tel: fax: Vladimir Parsons MD [address] [address] Phone: tel: fax: Referral ID Status Reason Start Date Expiration Date Visits Re quested Visits Authorized [id number] Closed 07/07/2020 07/07/2022 100 100 Encounter Details Date Type Department Care Team (Latest Contact Info) Description 01/11/2022 1:00 PM CDT Office Visit [facility] [address] [address] Vladimir Parsons MD [address] [address] Diarrhea (Diarrhea off and on [...] biopsies performed by Vladimir Parsons MD at [facility] OR ??? PARTIAL HIP REPLACEMENT Left ??? SIGMOIDOSCOPY N/A 10/05/2021 Sigmoidoscopy w/ Biopsy performed by Vladimir Parsons MD at [facility] OR ??? TUBAL LIGATION PE: [...] st Contact Info) Description 09/28/2024 2:30 PM BURN OUT SCARFING OPERATOR Appointment [facility] One Day Services [address] [place], [place] [phone] Josué Cook MD [address] [facility] 8 [place] [address] documented as of this encounter Goals Goal Patient Goal Type Associated Problems Recent Progress Patient-Stated? Author HOME TO [facility] Vannessa Light RN documented as of this encounter Results * QUANTIFERON-TB GOLD PLUS, 4T (01/17/2022 9:57 AM CDT) Pathologist [facility] NIL (TB) 0.02 01/22/2022 2:30 PM CDT [facility] MITOGEN NIL >10.00 01/22/2022 2:30 PM CDT [facility] TB1 AG MINUS NIL 0.01 01/22/2022 2:30 PM CDT [facility] TB2 AG MINUS NIL 0.01 01/22/2022 2:30 PM CDT [facility] 01/17/2022 9:57 AM CDT us Vladimir Parsons MD LABORATORY Final Result [facility] [address] [place] [address], [place] [phone] * HEPATITIS PANEL,ACUTE (01/17/2022 9:57 AM CDT) HEPATITIS B SURFACE AG NON-REACTI VE NON-REACTI VE 01/17/2022 3:46 PM CDT [facility] HEP B CORE IGM NON-REACTI VE NON-REACTI VE 01/17/2022 7:25 PM CDT [facility] HAV IGM NON-REACTI VE NON-REACTI VE 01/17/2022 4:06 PM CDT [facility] HEPATITIS C AB NON-REACTI VE NON-REACTI VE 01/17/2022 4:05 PM CDT [facility] 01/17/2022 9:57 AM CDT us Vladimir Parsons MD LABORATORY Final Result [facility] 3 [place] [id number], * TPMT ACTIVITY (01/17/2022 9:57 AM CDT) TPMT ACTIVITY 13 01/24/2022 12:46 AM CDT [employer] [facility] Comment: Units: ??nmol/hr/mL RBC Reference Range for TPMT Activity: ??>12 ? Normal 4-12 ? Heterozygote or low metabolizer ?? <4 ? Homozygote Deficient Range This test was developed and its analytical performance characteristics have been determined by [facility]. It has not been cleared or approved by FDA. This assay has been validated pursuant to the CLIA regulations and is used for clinical purposes. Test performed by [facility] ? [address], ? [place] [address] ? Bow Rehairer: Lillian Duong MD,PHD,JOVANY Test Reported by Sierra Nelson [facility], [address] [place], [place] Gamal Gao M.D., Ph.D., Director of Laboratories , [place] [id number] 01/17/2022 9:57 AM CDT us Vladimir Parsons MD LABORATORY Final Result [facility] [address] [place] [address], documented in this encounter Visit Diagnoses Diagnosis UC (ulcerative colitis confined to rectum) ([facility])- Primary Ulcerative (chronic) proctitis Diarrhea, unspecified type documented in this encounter Additional Health Concerns Assessment Noted Time PHQ-9 Depression Total Score: 0 07/06/20 21 4:06 PM BURN OUT SCARFING OPERATOR documented as of this encounter Care Teams Roast Master Relationship Specialty Start Date End Date Jared Abrams MD PCP - General 08/28/11 07/16/22 documented as of this encounter
--- OUTSIDE RECORDS SUMMARY | 2024-08-18 10:39 | XMS_ITS | Encounter Summary ---
Author Organization [facility] Address [address] [place] [address] [place] [address] Care Team Providers Care Rubber Heel And Sole Press Tender Name Role Phone Jared Abrams MD Primary Care Provider [phone] Reason for Visit * Reason Onset Date Comments Medication 08/24/2021 Encounter Details Date Type Department Care Team (Late st Contact Info) Description 08/24/2021 Telephone [facility] Multispecialty Care - [facility] [address] [facility], [address] [place] [phone] Vladimir Parsons MD 3 [facility] [address] [place], [place] [phone] Medication Social History Tobacco Use Types Packs/Day [...] a few times phone line was busy. CLERK * Riri Maldonado - 09/03/2021 1:02 PM CST Patient is calling Kimberley back. Call patient at [phone]. CLERK * Kimberley Pang - 09/03/2021 11:26 AM CST Spoke with patient's daughter Aby message given. She will talk with her mom about rescheduling Flex-sig and call the office back. CLERK * Kimberley Pang - 08/31/2021 9:27 AM CST LVM for pt to give the office a call back. CLERK * Corrina Muniz NP - 08/28/2021 4:13 [...] make her more vulnerable to many conditions. CLERK * Kimberley Pang - 08/28/2021 3:51 PM CST Spoke with patient's daughter patient was prescribed anti diarrhea medication by her pcp. She askedif Dr. Parsons would like her to take that medication? Patient [facility] was diagnosedwith suspected Pseudogout. She asked if her ulcerative colitis caused it and how could it be avoided? CLERK * Kimberley Pang - 08/27/2021 2:44 PM CST Returned patient's daughter call left a voicemail message. CLERK * Rhonda Hopkins - 08/24/2021 9:38 AM CST Lisa's daughter called with some information and a question. Daughter stated that Lisa has been having diarrhea and on 08/09 her PCP prescribed her a medication that is contradicting to Lisa's condition. Please follow up with daughter at [phone] to discuss and advise. CLERK documented in this encounter Plan of Treatment Upcoming Encounters Date Type Department Care Team (Late st Contact Info) Description 09/28/2024 2:30 PM BANK CLERK Appointment [facility] One Day [facility] [address] [place] [address] Josué Cook MD [address] [facility] 8 [place] [address] documented as of this encounter Goals Goal Patient Goal Type Associated Problems Recent Progress Patient-Stated? Author HOME TO [facility]IV[facility] General Vannessa Light RN documented as of this encounter Visit Diagnoses Not on filedocumented in this encounter Additional Health Concerns Assessment Noted Time PHQ-9 Depression Total Score: 0 07/06/20 21 4:06 PM BANK CLERK documented as of this encounter Care Teams Rubber Heel And Sole Press Tender Relationship Specialty Start Date End Date Jared Abrams MD PCP - General 08/28/11 07/16/22 documented as of this encounter
--- OUTSIDE RECORDS SUMMARY | 2024-08-18 10:39 | XMS_ITS | Encounter Summary ---
Author Organization [facility] Address [address] [facility] [place] [address] [place] [address] Care Team Providers Care Business Office Specialist Name Role Phone Jared Abrams MD Primary Care Provider [phone] Encounter Details Date Type Department Care Team (Late st Contact Info) Description 09/04/2021 Orders Only [facility] Medical Group Multispecialty Care - [address] [place] [address] Vladimir Parsons MD 3 [facility] [address] [place] [address] Social History Tobacco Use Types Packs/Day Years [...] with patient procedure scheduled for 09/21/2021 at [facility]. Flex sig instructions mailed to pt. OND SETTER APPRENTICE documented in this encounter Plan of Treatment Upcoming Encounters Date Type Department Care Team (Late st Contact Info) Description 09/28/2024 2:30 PM DIAMOND SETTER APPRENTICE Appointment [facility] Day [facility] [address] [place], [place] [phone] Josué Cook MD [address] [facility] 8 [place] [address] documented as of this encounter Goals Goal Patient Goal Type Associated Problems Recent Progress Patient-Stated? Author HOME TO [facility]IV[facility] General No Vannessa Blackwell RN documented as of this encounter Visit Diagnoses Not on filedocumented in this encounter Additional Health Concerns Assessment Noted Time PHQ-9 Depression Total Score: 0 07/06/20 21 4:06 PM DIAMOND SETTER APPRENTICE documented as of this encounter Care Teams Business Office Specialist Relationship Specialty Start Date End Date Jared Abrams MD PCP - General 08/28/11 07/16/22 documented as of this encounter
--- OUTSIDE RECORDS SUMMARY | 2024-08-18 10:39 | XMS_ITS | Encounter Summary ---
Author Organization [facility] Address [address] [facility] [place] [address] [place] [address] Care Team Providers Care Inside Sales Territory Manager Name Role Phone Jared Abrams MD Primary Care Provider [phone] Reason for Visit * Reason Comments Follow Up Path results * Consultation/Treatment (Routine) - Closed Specialty Diagnoses / Procedures Referred By Angel braswell Referred To Contact GASTROENTEROLOGY Diagnoses FU Procedures FOLLOW UP Jared Abrams MD [address] [place] [address] Phone: tel: fax: Vladimir Parsons MD [address] [address] Phone: tel: fax: Referral ID Status Reason Start Date Expiration Date Visits Re quested Visits Authorized [id number] Closed 11/16/2020 07/06/2022 100 100 Encounter Details Date Type Department Care Team (Latest Contact Info) Description 10/26/2021 2:40 PM CDT Office Visit [facility] Gastroenterology Specialty Clinic [address] [place] [address] [address] Vladimir Parsons MD [address] [address] Follow Up (Path results) Social [...] by Vladimir Parsons MD at [facility] OR ??? PARTIAL HIP REPLACEMENT Left ??? SIGMOIDOSCOPY N/A 10/05/2021 Sigmoidoscopy w/ Biopsy performed by Vladimir Parsons MD at [facility] OR ??? TUBAL LIGATION PE: Filed Vitals: [...] st Contact Info) Description 09/28/2024 2:30 PM BAGGER AND STOCK HANDLER HELPER Appointment [facility] Day [address] [phone] Josué Cook MD [address] [facility] 8 [place] [address] documented as of this encounter Goals Goal Patient Goal Type Associated Problems Recent Progress Patient-Stated? Author HOME TO [facility] Vannessa Light RN documented as of this encounter Visit Diagnoses Diagnosis Colitis- Primary Other and unspecified noninfectious gastroenteritis and colitis documented in this encounter Additional Health Concerns Assessment Noted Time PHQ-9 Depression Total Score: 0 07/06/20 21 4:06 PM BAGGER AND STOCK HANDLER HELPER documented as of this encounter Care Teams Inside Sales Territory Manager Relationship Specialty Start Date End Date Jared Abrams MD PCP - General 08/28/11 07/16/22 documented as of this encounter
--- OUTSIDE RECORDS SUMMARY | 2024-08-18 10:39 | XMS_ITS | Encounter Summary ---
Author Organization [facility] Address [address] [place] [address] [place] [address] Care Team Providers Care Section Gang Name Role Phone Jared Abrams MD Primary Care Provider [phone] Reason for Referral * Surgical (Routine) - Closed Specialty Diagnoses / Procedures Referred By Angel braswell Referred To Contact Diagnoses Ulcerative pancolitis without complication ([facility]) Ulcerative colitis with complication, unspecified location ([facility]) Procedures Case request operating room: SIGMOIDOSCOPY DX WITH BRUSH/WASH Vladimir Parsons MD [address] [place] [address] [place] [address] Phone: tel: fax: Referral ID Status Reason Start Date Expiration Date Visits Re quested Visits Authorized [id number] Closed 09/21/2021 10/19/2022 1 1 SECURITY CONSULTANT Encounter Details Date Type Department Care Team (Late st Contact Info) Description 09/21/2021 Orders Only [facility] Medical Group Multispecialty Care - [address] [place] [phone] Vladimir Parsons MD [address] [place] [address] [address] [place], [place] [phone] Social History Tobacco Use Types Packs/Day Years [...] st Contact Info) Description 09/28/2024 2:30 PM PCI SECURITY CONSULTANT Appointment [facility] [address] [place] [address] Josué Cook MD [address] [facility] 8 [place] [address] Scheduled Orders Name Type Priority Associated Diagnoses Orde r Schedule Case request operating room: SIGMOIDOSCOPY DX WITH BRUSH/WASH Case Request Routine Ulcerative pancolitis without complication ([facility]) Ulcerative colitis with complication, unspecified location ([facility]) Expected: 09/28/2021, Expires: 09/21/2022 documented as of this encounter Goals Goal Patient Goal Type Associated Problems Recent Progress Patient-Stated? Author HOME TO [facility] General Vannessa Light RN documented as of this encounter Visit Diagnoses Diagnosis Ulcerative pancolitis without complication ([facility])- Primary Ulcerative colitis with complication, unspecified location ([facility]) documented in this encounter Additional Health Concerns Assessment Noted Time PHQ-9 Depression Total Score: 0 07/06/20 21 4:06 PM PCI SECURITY CONSULTANT documented as of this encounter Care Teams Section Gang Relationship Specialty Start Date End Date Jared Abrams MD PCP - General 08/28/11 07/16/22 documented as of this encounter
--- OUTSIDE RECORDS SUMMARY | 2024-08-18 10:39 | XMS_ITS | Encounter Summary ---
Author Organization [facility] Address [address] [facility] [place] [address] [place] [address] Care Team Providers Care Brazing Machine Operator Helper Name Role Phone Jared Abrams MD Primary Care Provider [phone] Reason for Visit * Reason Onset Date Comments Reschedule 07/12/2021 Encounter Details Date Type Department Care Team (Late st Contact Info) Description 07/12/2021 Telephone [facility] Multispecialty Care - [facility] [address] [facility] [address] [place] [id number] Vladimir Parsons MD [address] [facility] [address] [place] [address] Reschedule Social History Tobacco Use Types Packs/Day [...] COVID-19? No / Unsure 07/06/2021 2:18 PM FACILITIES OPERATOR documented as of this encounter Functional [...] PM CDT aHnnah Reagan RN Active * Because of a [...] in this encounter Progress Notes * Kimberley aPng - 07/12/2021 2:01 PM CST LVM for pt to give the office a call to reschedule procedure. LITIES OPERATOR * Kimberley Pang - 07/12/2021 2:01 PM CST ----- Message from Ivett Moreno RN sent at 07/12/2021 9:59 AM FACILITIES OPERATOR ----- ----- Message from Ivett Moreno RN sent at 07/12/2021 9:58 AM FACILITIES OPERATOR ----- Patient needs to be rescheduled. She fell at home and has a sore coccyx. LITIES OPERATOR documented in this encounter Plan of Treatment Upcoming Encounters Date Type Department Care Team (Late st Contact Info) Description 09/28/2024 2:30 PM FACILITIES OPERATOR Appointment [facility] [address] [place] [address] Josué Cook MD [address] [facility] [address] [place] [address] documented as of this encounter Goals Goal Patient Goal Type Associated Problems Recent Progress Patient-Stated? Author HOME TO [facility] General Vannessa Light RN documented as of this encounter Visit Diagnoses Not on filedocumented in this encounter Additional Health Concerns Assessment Noted Time PHQ-9 Depression Total Score: 0 07/06/20 21 4:06 PM FACILITIES OPERATOR documented as of this encounter Care Teams Brazing Machine Operator Helper Relationship Specialty Start Date End Date Jared Abrams MD PCP - General 08/28/11 07/16/22 documented as of this encounter
--- OUTSIDE RECORDS SUMMARY | 2024-08-18 10:40 | XMS_ITS | Encounter Summary ---
Author Organization [facility] Address [address] [facility] [place] [address] [place] [address] Care Team Providers Care Geothermal Operating Engineer Name Role Phone Jared Abrams MD Primary Care Provider [phone] Reason for Visit * Reason Comments Follow Up uc * Consultation/Treatment (Routine) - Closed Specialty Diagnoses / Procedures Referred By Angel braswell Referred To Contact GASTROENTEROLOGY Diagnoses FU Procedures FOLLOW UP Jared Abrams MD [address] [place] [address] Phone: tel: fax: Vladimir Parsons MD [address] [place] [address] Phone: tel: fax: Referral ID Status Reason Start Date Expiration Date Visits Re quested Visits Authorized [id number] Closed 11/16/2020 07/06/2022 100 100 Encounter Details Date Type Department Care Team (Late st Contact Info) Description 07/06/2021 2:40 PM GEOTHERMAL ELECTRICAL ENGINEER Office Visit [facility] [address] [phone] Vladimir Parsons MD [address] [place] [address] Follow Up (uc) Social History Tobacco [...] COVID-19? No / Unsure 07/06/2021 2:18 PM GEOTHERMAL ELECTRICAL ENGINEER documented as of this encounter Last Filed Vital Signs Vital Sign Reading Time Taken Comments Blood Pressure 136/84 07/06/2021 3:14 PM GEOTHERMAL ELECTRICAL ENGINEER Pulse 72 07/06/2021 3:14 PM GEOTHERMAL ELECTRICAL ENGINEER Temperature 36.2 ??C (97.2 ??F) 07/06/2021 3:14 PM CS T Respiratory Rate - - Oxygen Saturation 95% 07/06/2021 3:14 PM GEOTHERMAL ELECTRICAL ENGINEER Inhaled Oxygen Concentration - - Weight 76.2 kg (168 lb) 07/06/2021 3:14 PM GEOTHERMAL ELECTRICAL ENGINEER Height 154.9 cm (5' 1 ) 07/06/2021 3:14 PM GEOTHERMAL ELECTRICAL ENGINEER Body Mass Index 31.74 07/06/2021 3:14 PM GEOTHERMAL ELECTRICAL ENGINEER documented in this encounter Functional Status * [...] biopsies performed by Vladimir Parsons MD at [facility] OR ??? PARTIAL HIP REPLACEMENT Left [...] PARSONS MD 07/07/2021 Voice recognition software utilized HERMAL ELECTRICAL ENGINEER documented in this encounter Plan of Treatment Upcoming Encounters Date Type Department Care Team (Late st Contact Info) Description 09/28/2024 2:30 PM GEOTHERMAL ELECTRICAL ENGINEER Appointment [facility] [address] [place] [address] Josué Cook MD [address] [facility] [address] [place] [address] documented as of this encounter Goals Goal Patient Goal Type Associated Problems Recent Progress Patient-Stated? Author HOME TO [facility] General No Vannessa Blackwell RN documented as of this encounter Visit Diagnoses Diagnosis Ulcerative pancolitis without complication (CMS/HCC HHS/HCC)- Primary documented in this encounter Additional Health Concerns Assessment Noted Time PHQ-9 Depression Total Score: 0 07/06/20 21 4:06 PM GEOTHERMAL ELECTRICAL ENGINEER documented as of this encounter Care Teams Geothermal Operating Engineer Relationship Specialty Start Date End Date Jared Abrams MD PCP - General 08/28/11 07/16/22 documented as of this encounter
--- OUTSIDE RECORDS SUMMARY | 2024-08-18 10:40 | XMS_ITS | Encounter Summary ---
Author Organization [facility] Address [address] [facility] [place] [address] [place] [address] Care Team Providers Care Apprentice Cook Name Role Phone Jared Abrams MD Primary Care Provider [phone] Encounter Details Date Type Department Care Team [...] COVID-19? No / Unsure 07/07/2020 3:04 PM BEAD TRIMMER documented as of this encounter Functional Status [...] Date Type Department Care Team (Late st [facility]) Description 09/28/2024 2:30 PM BEAD TRIMMER Appointment [facility] [address] [place] [address] Josué Cook MD [address] [address] documented as of this encounter Goals Goal Patient Goal Type Associated Problems Recent Progress Patient-Stated? Author [facility] General No Vannessa Blackwell RN documented as of this encounter Visit Diagnoses Not on filedocumented in this encounter Care Teams Apprentice Cook Relationship Specialty Start Date End Date Jared Abrams MD PCP - General 08/28/11 07/16/22 documented as of this encounter
--- OUTSIDE RECORDS SUMMARY | 2024-08-18 10:40 | XMS_ITS | Encounter Summary ---
Author Organization [facility] Address [address] [facility] [place] [address] [place] [address] Care Team Providers Care Atomic Fuel Assembler Name Role Phone Jared Abrams MD Primary Care Provider [phone] Encounter Details Date Type Department Care Team (Latest Contact Info) Description 03/30/2020 1:25 PM CDT - 03/30/2020 11:59 PM CDT Hospital Encounter [facility] [address] [place] [address] Pollo Lopez, [facility] [place] [address] Discharge Disposition: Home or Self [...] st Contact Info) Description 09/28/2024 2:30 PM CARDIOLOGY TECH Appointment [facility] Day [address] [address] Josué Cook MD [address] [facility] [address] [place] [address] documented as of this encounter Goals Goal Patient Goal Type Associated Problems Recent Progress Patient-Stated? Author HOME TO [facility] Vannessa Light RN documented as of this encounter Procedures Procedure Name Priority Date/Time Associated Diagnosis Comments BASIC METABOLIC PANEL Routine 03/30/2020 1:30 PM CDT JENNY (acute kidney injury) Ulcerative colitis without complications, unspecified location ([facility]) CBC W/DIFF AUTOMATED Routine 03/30/2020 1:30 PM CDT Ulcerative colitis without complications, unspecified location ([facility]) Iron deficiency anemia, unspecified iron deficiency anemia type documented in this encounter Results * (ABNORMAL) CBC W/DIFF AUTOMATED (03/30/2020 1:30 PM CDT) WBC 12.7(H) 4.4 - 11.0 x10'3/uL 03/30/2020 1:45 PM CDT [facility] RBC 3.58(L) 4.50 - 5.10 x10'6/uL 03/30/2020 1:45 PM T [facility] HGB 9.2(L) 12.3 - 15.3 G/DL 03/30/2020 1:45 PM T [facility] HCT 30.1(L) 35.9 - 44.6 % 03/30/2020 1:45 PM CDT [facility] MCV 84.1 80.0 - 96.0 FL 03/30/2020 1:45 PM T [facility] MCH 25.7 25.3 - 30.9 PG 03/30/2020 1:45 PM T [facility] MCHC 30.6(L) 31.0 - 34.1 G/DL 03/30/2020 1:45 PM T [facility] RDW 20.0(H) 12.4 - 15.1 % 03/30/2020 1:45 PM T [facility] PLT 372(H) 151 - 353 x10'3/uL 03/30/2020 1:45 PM T [facility] MPV 8.6(L) 9.6 - 12.0 FL 03/30/2020 1:45 PM T [facility] SEG NEUTROPHILS 88(H) 42 - 72 % 0 1:59 PM CDT [facility] LYMPHOCYTES 9(L) 15.8 - 45.0 % 03/30/2020 1:59 PM T [facility] MONOCYTES 3(L) 5.7 - 12.5 % 03/30/2020 1:59 PM T [facility] ABS. NEUTROPHILS TOTAL 11.18(H) 1.40 - 6.00 x10'3/uL 03/30/2020 1:59 PM CDT [facility] ABS. LYMPHOCYTES 1.14 0.80 - 4.70 x10'3/uL 03/30/2020 1:59 PM CDT [facility] PLT MORPH. NORMAL 03/30/2020 1:59 PM CDT [facility] RBC MORPHOLOGY SLIGHT 03/30/2020 1:59 PM CDT [facility] Comment:ANISOCYTOSIS WBC MORPHOLOGY NORMAL 03/30/2020 1:59 PM CDT [facility] 03/30/2020 1:30 PM CDT Pollo Lopez APRN LABORATORY Edited Result - Final [facility] [id number] [place] [id number], * (ABNORMAL) BASIC METABOLIC PANEL (03/30/2020 1:30 PM CDT) GLUCOSE 144(H) 70 - 99 MG/DL 03/30/2020 1:56 PM CDT [facility] BUN 12 7 - 18 MG/DL 03/30/2020 1:56 PM CDT [facility] CREATININE S/P/B 0.95 0.55 - 1.02 MG/DL 03/30/2020 1:56 PM CDT [facility] SODIUM S/P/B 141 136 - 145 MMOL/L 03/30/2020 1:56 PM CDT [facility] POTASSIUM S/P/B 3.4(L) 3.5 - 5.1 MMOL/L 03/30/2020 1:56 PM CDT [facility] CHLORIDE S/P/B 104 100 - 108 MMOL/L 03/30/2020 1:56 PM CDT [facility] CO2 28.8 21 - 32 MMOL/L 03/30/2020 1:56 PM CDT [facility] CALCIUM S/P/B 8.9 8.5 - 10.1 MG/DL 03/30/2020 1:56 PM CDT [facility] ANION GAP 8.2 5 - 15 MMOL/L 03/30/2020 1:56 PM CDT [facility] BUN CREATININE RATIO 12.6 6 - 26 03/30/2020 1:56 PM CDT [facility] EGFR NON-AFR. AMER. 58(L) >90 ML/MIN/1.7 3 M2 03/30/2020 1:56 PM T [facility] EGFR AFR. AMER. 67(L) >90 ML/MIN/1.7 3 M2 03/30/2020 1:56 PM T [facility] Comment: NOTE: eGFR is not calculated for patients <18 years of age. This is an estimated GFR (CKD EPI) and should not be used for calculating drug doses. 03/30/2020 1:30 PM CDT Obdulio Darian Lopez [facility] Final Result [facility] [id number] [id number], documented in this encounter Visit Diagnoses Diagnosis JENNY (acute kidney injury) ([facility]) Acute kidney failure, unspecified Ulcerative colitis without complications, unspecified location ([facility]) Iron deficiency anemia, unspecified iron deficiency anemia type documented in this encounter Care Teams Atomic Fuel Assembler Relationship Specialty Start Date End Date Jared Abrams MD PCP - General 08/28/11 07/16/22 documented as of this encounter
--- OUTSIDE RECORDS SUMMARY | 2024-08-18 10:40 | XMS_ITS | Encounter Summary ---
Author Organization [facility] Address [address] [place] [address] [place] [address] Care Team Providers Care Clerical Administrative Assistant Name Role Phone Jared Leyva MD Primary Care Provider [phone] Reason for Referral * Imaging (Urgent) - Closed Specialty Diagnoses / Procedures Referred By Angel braswell Referred To Contact RADIOLOGY Procedures US RETROPERITONEAL COMP US RENAL ABDOMEN DUPLEX COMP Cara Alvarado APRN [address] [place] [address] Phone: tel: [phone] fax: Referral ID Status Reason Start Date Expiration Date Visits Re quested Visits Authorized [id number] Closed 03/20/2020 04/20/2021 1 1 * Surgical (Routine) - Closed Specialty Diagnoses / Procedures Referred By Angel braswell Referred To Contact Procedures Case request operating room: COLONOSCOPY DIAGNOSTIC WITH/WITHOUT SPECIMEN BRUSH/WASH Indigo Parsons MD [address] [address] Phone: tel: fax: Referral ID Status Reason Start Date Expiration Date Visits Re quested Visits Authorized [id number] Closed 03/21/2020 04/21/2021 1 1 * Imaging (Emergency) - Closed Specialty Diagnoses / Procedures Referred By Contclemencia t Referred To Contact RADIOLOGY Procedures CT ABD+PEL WO CON Mahesh Nelson MD Phone: tel: fax: Referral ID Status Reason Start Date Expiration Date Visits Re quested Visits Authorized [id number] Closed 03/19/2020 04/19/2021 1 1 Reason for Visit * Reason Comments Diarrhea * Auth/Cert Specialty Diagnoses / Procedures Referred By Contclemencia t Referred To Contact Diagnoses Colitis JENNY (acute kidney injury) ([facility]/HCC) Colitis Referral ID Status Reason Start Date Expiration Date Visits Re quested Visits Authorized [id number] 1 1 Encounter Details Date Type Department Care Team (Late st Contact Info) Description 03/19/2020 8:33 PM CDT - 03/23/2020 2:40 PM CDT Hospital Encounter [facility] Med/Surg [address] [place], [place] [id number] Mahesh Nelson MD [address] [place] [address] [phone] Durga Parekh MD [address] [place] [address] [phone] Cara Alvarado APRN [address] [place], [place] [id number] [phone] (Work) Pollo Hogue APRN [place], [place] [id number] Madison Aaron MD [place], [place] [id number] [phone] (Work) Diarrhea Discharge Disposition: Home or [...] No results for input(s): PH, PCO2, PO2, [id number], BICARBWB, BASEDEFICIT, BASEEXCESS in the novr811 hours. No results found for this or any previous visit. Radiology Reports : Results for orders placed or performed during the hospital encounter of 03/19/20 ECG 12 lead ?? Narrative ?? [facility] Test Date: 2020-03-19 Pat Name: RADHA ALLEN Department: Room: 120 Gender: Female Cage Tender: : 1945 Requested By: MAHESH NELSON Order Number: [id number] Reading MD: Keven Gunter Measurements Intervals Geismar Rate: 78 P: 53 OH: 137 QRS: 22 QRSD: 87 T: 12 QT: 355 QTc: 405 Interpretive Statements SINUS RHYTHM LOW QRS VOLTAGE IN PRECORDIAL LEADS No previous ECG available for comparison ?? CT ABD+PEL WO CON [[id number]] Collected: 03/20/20825 ?? Updated: 03/20/20834 Narrative: ?? [...] Your Medications These medications were sent to [id number] - [place], [place] - [address] [place] [address] [address] [facility] [id number] ?? ferrous sulfate EC 324 (65 Fe) [...] Care Everywhere. * Ulcerative Colitis Discharge Instructions (Bahraini) * Diet for Ulcerative Colitis (Bahraini) documented in this encounter Medications at Time [...] Mac RN - 03/23/2020 11:11 AM CDT [facility] for discharge planning @1100 with HOSPITALIST, BEVEL POLISHER, CM, UR, PASTORAL CARE, PHARMACY, CARDIOPULMONARY, ORDERING MACHINE OPERATOR, HH. F/u with Dr. Parsons (GI) after [...] 1 g Intravenous Q24H Darah R Dodt, CREAM BEATER 1 g at 03/22/20 1053 ??? enoxaparin (LOVENOX) 40 MG/0.4ML syringe 40 mg 40 mg Subcutaneous Q24H Darah R Kristent, CREAM BEATER Stopped at 03/22/20 0918 ??? HYDROcodone-acetaminophen (NORCO) 5-325 MG tablet 1 tablet 1 tablet Oral Q4H PRN Madison Aaron MD ??? lactated ringers infusion Intravenous Continuous Indigo Parsons MD Stopped at 03/22/20 1045 ??? methylPREDNISolone sodium succinate (SOLU-Medrol) injection 40 mg 40 mg Intravenous Daily DarahR John, CREAM BEATER 40 mg at 03/22/20 1438 ??? metroNIDAZOLE (FLAGYL) IVPB 500 mg 500 mg Intravenous Q8H Darmaribel R Kristent, CREAM BEATER Stopped at 03/22/20 1153 ??? morphine injection [...] 0.9% infusion Intravenous Continuous Darah R Kristent, CREAM BEATER 100 mL/hr at 03/22/20 1053 ??? [START [...] encounter of 03/19/20 ECG 12 lead Narrative [facility] Test Date: 2020-03-19 Pat Name: RADHA ALLEN Department: Room: 120 Gender: Female Cage Tender: : 1945 Requested By: MAHESH NELSON Order Number: [id number] Reading MD: Keven Gunter Measurements Intervals Geismar Rate: 78 P: 53 OH: 137 QRS: 22 QRSD: 87 T: 12 QT: 355 QTc: 405 Interpretive Statements SINUS RHYTHM LOW QRS VOLTAGE IN PRECORDIAL LEADS No previous ECG available for comparison CT ABD+PEL WO CON [[id number]] Collected: 03/20/20825 ?? Updated: 03/20/20834 Narrative: ?? [...] Lovenox - Code status: Full POLLO HOGUE, CREAM BEATER 03/22/2020 Patient was seen and examined separately [...] CASE MANAGEMENT, UR, NURSING, PT, OT, CARDIOPULMONARY, ORDERING MACHINE OPERATOR, HOSPITALIST HOME HEALTH,PASTORAL CARE, PHARMACY Meeting held at 1100. ORDERING MACHINE OPERATOR REPORTS BLOOD CULTURE POSITIVE. WILL NOT DC [...] 0.9 % 50 mL IVPB 3.375 g [id number] Durga Parekh MD 12.5 mL/hr at 03/21/20 [...] 03/19/[address] [facility] Test Date: 2020-03-19 Pat Name: RADHA ALLEN Department: Room: 120 Gender: Female Cage Tender: : 1945 Requested By: MAHESH NELSON Order Number: [id number] Reading MD: Keven Gunter Measurements Intervals Geismar Rate: 78 P: 53 OH: 137 QRS: 22 QRSD: 87 T: 12 QT: 355 QTc: 405 Interpretive Statements SINUS RHYTHM LOW QRS VOLTAGE IN PRECORDIAL LEADS No previous ECG available for comparison CT ABD+PEL WO CON [[id number]] Collected: 03/20/20825 ?? Updated: 03/20/20834 Narrative: ?? [...] case management, UR, nursing, PT, OT, cardiopulmonary, ORDERING MACHINE OPERATOR, Hospitalist, Pastoral Care, and Pharmacy. Meeting held at 11:00. Plan for colonoscopy tomorrow. * Vannessa Blackwell RN - 03/20/2020 2:10 PM CDT [facility] CONFERENCE: TEAM ATTENDANCE: CASE MANAGEMENT, UR, NURSING, PT, OT, CARDIOPULMONARY, ORDERING MACHINE OPERATOR, HOSPITALIST HOME HEALTH,PASTORAL CARE, PHARMACY Meeting held [...] Assistance No Behavior Oriented;Cooperative Communication Talks;Understands speaking;Understands Bahraini Socioeconomic Needs Caregiver Needed No At Risk [...] of major lifestyle changes, including change in assisted living environment No Family concerns/conflicts No Inadequate social and/or financial supports No Abuse and/or neglect of elder, adult or child No Psychiatric and/or substance abuse issues affecting current hospitalization No Homelessness with lack of safe discharge environment No Need for guardianship petition No Chaptered patient No LIVES ALONE. DAUGHTER IN AREA AND ASSISTS NEEDED. PATIENT IS VERY ACTIVE WITH [employer]. DENIES NEED FOR HOME HEALTH ARE OTHER SERVICES documented in this encounter H&P Notes * Cara Alvarado, CREAM BEATER - 03/20/2020 9:10 AM CDT Hospitalist History [...] file Gets together: Not on file Attends samaritan service: Not on file Active member of [...] & Other Studies CT ABD+PEL WO CON [[id number]] Collected: 03/20/20825 Updated: 03/20/20834 Narrative: ?? IMAGING [...] encounter of 03/19/20 ECG 12 lead Narrative [facility] Test Date: 2020-03-19 Pat Name: RADHA ALLEN Department: Room: 120 Gender: Female Cage Tender: : 1945 Requested By: MAHESH NELSON Order Number: [id number] Reading MD: Keven Gunter Measurements Intervals Geismar Rate: 78 P: 53 OH: 137 QRS: 22 QRSD: 87 T: 12 [...] from [place]. While there she had immersion evangelical. She noticed watery stools within a few [...] file Gets together: Not on file Attends samaritan service: Not on file Active member of [...] Parsons MD - 03/22/2020 10:27 AM CDT [facility] OpNote colonoscopy with biopsies Procedure Note Radha Allen 03/19/2020 - 03/22/2020 1142 Procedure(s) (LRB): colonoscopy with biopsies (N/A) Surgeon(s): Indigo Parsons MD Staff: Circulating Nurse 1: Miroslava Henderson RN edge inker uppers: Jody Francisco, REGULATORY AFFAIRS SPECIALIST Anesthesia: * No anesthesia type entered * FIRER AUTOMATIC STOKER: Rochelle García CRNA Pre-Op Diagnosis: diarrhea and [...] encounter of 03/19/20 ECG 12 lead Narrative [facility] Test Date: 2020-03-19 Pat Name: RADHA ALLEN Department: Room: EXAM 101 Gender: Female Cage Tender: : 1945 Requested By: MAHESH NELSON Order Number: [id number] Reading MD: Measurements Intervals Geismar Rate: 78 P: 53 OH: 137 QRS: 22 QRSD: 87 T: 12 [...] IVPB (3.375 g Intravenous New Bag 03/19/20 2312) piperacillin-tazobactam (ZOSYN) 3.375 g in sodium chloride [...] Colitis Disposition: Admit Mahesh Nelson MD 03/19/20 4541 * Kaitlynn Amin RN - 03/19/2020 8:35 PM CDT Patient arrived via POV from home with c/o diarrhea, 5-6 loose stools in the past 24 hours, since September. Patient returned [facility] and began having diarrhea. Has had stool samples, which werenegative. Patient c/o generalized weakness and family reports that she appears pale. Also, c/o hemorroids. documented in this encounter Plan of Treatment Upcoming Encounters Date Type Department Care Team (Late st Contact Info) Description 09/28/2024 2:30 PM FIRE SUPPORT SPECIALIST Appointment [facility] [address] [place] [address] Josué Cook MD [address] [facility] [address] [facility] [place] [address] Pending Results Name Type Priority Associated Diagnoses Date /Time Blood Bank - Specimen Hold Blood Bank Routine 03/19/2020 8:45 PM CDT documented as of this encounter Goals Goal Patient Goal Type Associated Problems Recent Progress Patient-Stated? Author HOME TO [facility] Vannessa Light RN documented as of [...] BASIC METABOLIC PANEL (03/30/2020 1:30 PM CDT) [facility] GLUCOSE 144(H) 70 - 99 MG/DL 03/30/2020 1:56 PM CDT [facility] BUN 12 7 - 18 MG/DL 03/30/2020 1:56 PM CDT [facility] CREATININE S/P/B 0.95 0.55 - 1.02 MG/DL 03/30/2020 1:56 PM CDT [facility] SODIUM S/P/B 141 136 - 145 MMOL/L 03/30/2020 1:56 PM CDT [facility] POTASSIUM S/P/B 3.4(L) 3.5 - 5.1 MMOL/L 03/30/2020 1:56 PM T [facility] CHLORIDE S/P/B 104 100 - 108 MMOL/L 03/30/2020 1:56 PM T [facility] CO2 28.8 21 - 32 MMOL/L 03/30/2020 1:56 PM T [facility] CALCIUM S/P/B 8.9 8.5 - 10.1 MG/DL 03/30/2020 1:56 PM T [facility] ANION GAP 8.2 5 - 15 MMOL/L 03/30/2020 1:56 PM T [facility] BUN CREATININE RATIO 12.6 6 - 26 03/30/2020 1:56 PM T [facility] EGFR NON-AFR. AMER. 58(L) >90 ML/MIN/1.7 3 M2 03/30/2020 1:56 PM T [facility] EGFR AFR. AMER. 67(L) >90 ML/MIN/1.7 3 M2 03/30/2020 1:56 PM CDT [facility] Comment: NOTE: eGFR is not calculated for patients <18 years of age. This is an estimated GFR (CKD EPI) and should not be used for calculating drug doses. 03/30/2020 1:30 PM CDT Obdulio Darian Hogue CREAM BEATER LABORATORY Final Result [facility] [address] [place] [address], [place] [phone] * (ABNORMAL) CBC W/DIFF AUTOMATED (03/30/2020 1:30 PM CDT) WBC 12.7(H) 4.4 - 11.0 x10'3/uL 03/30/2020 1:45 PM CDT [facility] RBC 3.58(L) 4.50 - 5.10 x10'6/uL 03/30/2020 1:45 PM CDT [facility] HGB 9.2(L) 12.3 - 15.3 G/DL 03/30/2020 1:45 PM CDT [facility] HCT 30.1(L) 35.9 - 44.6 % 03/30/2020 1:45 PM CDT [facility] MCV 84.1 80.0 - 96.0 FL 03/30/2020 1:45 PM CDT [facility] MCH 25.7 25.3 - 30.9 PG 03/30/2020 1:45 PM CDT [facility] MCHC 30.6(L) 31.0 - 34.1 G/DL 03/30/2020 1:45 PM CDT [facility] RDW 20.0(H) 12.4 - 15.1 % 03/30/2020 1:45 PM CDT [facility] PLT 372(H) 151 - 353 x10'3/uL 03/30/2020 1:45 PM CDT [facility] MPV 8.6(L) 9.6 - 12.0 FL 03/30/2020 1:45 PM CDT [facility] SEG NEUTROPHILS 88(H) 42 - 72 % 0 1:59 PM CDT [facility] LYMPHOCYTES 9(L) 15.8 - 45.0 % 03/30/2020 1:59 PM CDT [facility] MONOCYTES 3(L) 5.7 - 12.5 % 03/30/2020 1:59 PM CDT [facility] ABS. NEUTROPHILS TOTAL 11.18(H) 1.40 - 6.00 x10'3/uL 03/30/2020 1:59 PM CDT [facility] ABS. LYMPHOCYTES 1.14 0.80 - 4.70 x10'3/uL 03/30/2020 1:59 PM CDT [facility] PLT MORPH. NORMAL 03/30/2020 1:59 PM CDT [facility] RBC MORPHOLOGY SLIGHT 03/30/2020 1:59 PM CDT [facility] Comment:ANISOCYTOSIS WBC MORPHOLOGY NORMAL 03/30/2020 1:59 PM CDT [facility] 03/30/2020 1:30 PM CDT us Pollo Hogue APRN LABORATORY Edited Result - Final [facility] [address] [place] [address], * (ABNORMAL) BASIC METABOLIC PANEL (03/23/2020 6:20 AM CDT) GLUCOSE 103(H) 70 - 99 MG/DL 03/23/2020 6:55 AM [facility] BUN 3(L) 7 - 18 MG/DL 03/23/2020 6:55 AM [facility] CREATININE S/P/B 1.07(H) 0.55 - 1.02 MG/DL 03/23/2020 6:55 AM [facility] SODIUM S/P/B 143 136 - 145 MMOL/L 03/23/2020 6:55 AM [facility] POTASSIUM S/P/B 3.7 3.5 - 5.1 MMOL/L 03/23/2020 6:55 AM [facility] CHLORIDE S/P/B 111(H) 100 - 108 MMOL/L 03/23/2020 6:55 AM [facility] CO2 23.4 21 - 32 MMOL/L 03/23/2020 6:55 AM [facility] CALCIUM S/P/B 7.1(L) 8.5 - 10.1 MG/DL 03/23/2020 6:55 AM [facility] ANION GAP 8.6 5 - 15 MMOL/L 03/23/2020 6:55 AM [facility] BUN CREATININE RATIO 2.8(L) 6 - 26 03/23/2020 6:55 AM [facility] EGFR NON-AFR. AMER. 50(L) >90 ML/MIN/1.7 3 M2 03/23/2020 6:55 AM [facility] EGFR AFR. AMER. 58(L) >90 ML/MIN/1.7 3 M2 03/23/2020 6:55 AM [facility] Comment: NOTE: eGFR is not calculated for patients <18 years of age. This is an estimated GFR (CKD EPI) and should not be used for calculating drug doses. 03/23/2020 6:20 AM CDT Pollo Farmer John CREAM BEATER LABORATORY Final Result [facility] [address] [place] [address], [place] [phone] * (ABNORMAL) CBC W/DIFF AUTOMATED (03/23/2020 6:20 AM CDT) WBC 8.6 4.4 - 11.0 x10'3/uL 03/23/2020 6:44 AM CDT [facility] RBC 2.97(L) 4.50 - 5.10 x10'6/uL 03/23/2020 6:44 AM CDT [facility] HGB 7.7(L) 12.3 - 15.3 G/DL 03/23/2020 6:44 AM CDT [facility] HCT 24.1(L) 35.9 - 44.6 % 03/23/2020 6:44 AM CDT [facility] MCV 81.1 80.0 - 96.0 FL 03/23/2020 6:44 AM CDT [facility] MCH 25.9 25.3 - 30.9 PG 03/23/2020 6:44 AM CDT [facility] MCHC 32.0 31.0 - 34.1 G/DL 03/23/2020 6:44 AM CDT [facility] RDW 16.6(H) 12.4 - 15.1 % 03/23/2020 6:44 AM CDT [facility] PLT 342 151 - 353 x10'3/uL 03/23/2020 6:44 AM CDT [facility] MPV 8.4(L) 9.6 - 12.0 FL 03/23/2020 6:44 AM CDT [facility] RBC MORPHOLOGY NORMAL 03/23/2020 6:44 AM CDT [facility] PLT MORPH. NORMAL 03/23/2020 6:44 AM CDT [facility] WBC MORPHOLOGY NORMAL 03/23/2020 6:44 AM CDT [facility] LYMPHOCYTES % 27.2 15.8 - 45.0 % 03/23/2020 6:44 AM CDT [facility] NEUTROPHILS % 56.9 42.1 - 71.9 % 03/23/2020 6:44 AM CDT [facility] MONOCYTES % 11.2 5.7 - 12.5 % 03/23/2020 6:44 AM CDT [facility] EOSINOPHILS 0.2 0.0 - 5.6 % 03/23/2020 6:44 AM CDT [facility] BASOPHILS 0.2 0.0 - 1.3 % 03/23/2020 6:44 AM CDT [facility] ABS. NEUTROPHILS TOTAL 4.91 1.40 - 6.00 x10'3/uL 03/23/2020 6:44 AM CDT [facility] IMMATURE GRANS % 4.3(H) 0.0 - 0.5 % 03/23/2020 6:44 AM CDT [facility] ABS. LYMPHOCYTES 2.35 0.80 - 4.70 x10'3/uL 03/23/2020 6:44 AM T [facility] 03/23/2020 6:20 AM CDT us Pollo Hogue CREAM BEATER LABORATORY Final Result [facility] [address] [place] [address], * (ABNORMAL) POCT glucose (03/22/2020 7:56 PM CDT) GLUCOSE POC 175(H) 70 - 110 mg/dL 03/22/2020 9:10 PM CDT [facility] 03/22/2020 7:56 PM CDT Pollo Hogue CREAM BEATER POCT ORDERABLES - DEVICE Final Result Performing Organization Address [facility] Co de Phone Number [facility] [address] [place] [address], [place] [phone] * CULTURE, BACTERIA, BLOOD (03/22/2020 11:57 AM CDT) SPEC DESCRIPTION BLOOD 03/22/2020 9:30 AM CDT [facility] SPECIAL REQUESTS NO SPECIAL REQUEST 03/22/2020 9:30 AM CDT [facility] CULTURE RESULT NO GROWTH 5 DAYS 03/27/2020 2:05 PM CDT [facility] BLOOD SPECIMEN OBTAINED FOR BLOOD CULTURE / Unknown 03/22/2020 11:57 AM CDT 03/22/2020 12:07 PM CDT Pollo Hogue APRN MICROBIOLOGY - GENERAL ORDERAB LES Final Result Performing Organization Address [facility] Co de Phone Number [facility] [address] [place] [address], [place] [phone] [facility] [address] [place] [address], [place] [phone] * CULTURE, BACTERIA, BLOOD (03/22/2020 11:57 AM CDT) SPEC DESCRIPTION BLOOD 03/22/2020 9:30 AM CDT [facility] SPECIAL REQUESTS NO SPECIAL REQUEST 03/22/2020 9:30 AM CDT [facility] CULTURE RESULT NO GROWTH 5 DAYS 03/27/2020 2:05 PM CDT [facility] BLOOD SPECIMEN OBTAINED FOR BLOOD CULTURE / Unknown 03/22/2020 11:57 AM CDT 03/22/2020 12:07 PM CDT Pollo Farmer John CREAM BEATER MICROBIOLOGY - GENERAL ORDERAB LES Final Result Performing Organization Address City/State/[facility] Co de Phone Number [facility] [address] [place] [address], [place] [phone] [facility] [address] [place] [address], [place] [phone] * Pathology (03/22/2020 10:20 AM CDT) Tissue specimen (specimen) COLON STRUCTURE / Unknown 03/22/2020 10:20 AM CDT Tissue specimen (specimen) COLON STRUCTURE / Unknown 03/22/2020 10:22 AM CDT Tissue specimen (specimen) SPECIMEN FROM RECTUM / Unknown 03/22/2020 10:24 AM CDT Narrative [facility] - 03/23/2020 5:19 PM CDT [facility] Date of Service: ??03/22/2020 Preoperative Diagnosis: ??Diarrhea [...] submitted entirely in block C. CPT Code: ??27033 x3 D: ??03/22/2020 02:17 PM #[id number] T: ??03/22/2020 04:47 PM /NTS A copy of this report has been sent to: [facility] [id number] PATHOLOGIC DIAGNOSIS: Right colon, colonoscopy with biopsies: [...] chronic ulcerative colitis. D: ??03/23/2020 04:21 PM #[id number] T: ??03/23/2020 05:09 PM /NTS Indigo Parsons MD PATHOLOGY/CYTOLOGY ORDERABLES Fi nal Result [facility] [address] [place] [address], * (ABNORMAL) BASIC METABOLIC PANEL (03/22/2020 6:55 AM CDT) GLUCOSE 88 70 - 99 MG/DL 03/22/2020 8:34 AM CDT [facility] BUN 5(L) 7 - 18 MG/DL 03/22/2020 8:34 AM CDT [facility] CREATININE S/P/B 0.82 0.55 - 1.02 MG/DL 03/22/2020 8:34 AM CDT [facility] SODIUM S/P/B 144 136 - 145 MMOL/L 03/22/2020 8:34 AM CDT [facility] POTASSIUM S/P/B 4.1 3.5 - 5.1 MMOL/L 03/22/2020 8:34 AM CDT [facility] CHLORIDE S/P/B 112(H) 100 - 108 MMOL/L 03/22/2020 8:34 AM CDT [facility] CO2 24.4 21 - 32 MMOL/L 03/22/2020 8:34 AM CDT [facility] CALCIUM S/P/B 7.0(L) 8.5 - 10.1 MG/DL 03/22/2020 8:34 AM CDT [facility] ANION GAP 7.6 5 - 15 MMOL/L 03/22/2020 8:34 AM T [facility] BUN CREATININE RATIO 6.1 03/22/2020 8:34 AM T [facility] EGFR NON-AFR. AMER. 70(L) >90 ML/MIN/1.7 3 M2 03/22/2020 8:34 AM T [facility] EGFR AFR. AMER. 81(L) >90 ML/MIN/1.7 3 M2 03/22/2020 8:34 AM T [facility] Comment: NOTE: eGFR is not calculated for patients <18 years of age. This is an estimated GFR (CKD EPI) and should not be used for calculating drug doses. 03/22/2020 6:55 AM CDT Pollo Hogue APRN LABORATORY Final Result [facility] [address] [place] [address], [place] [phone] * (ABNORMAL) CBC W/DIFF AUTOMATED (03/22/2020 6:55 AM CDT) WBC 6.6 4.4 - 11.0 x10'3/uL 03/22/2020 7:14 AM CDT [facility] RBC 3.12(L) 4.50 - 5.10 x10'6/uL 03/22/2020 7:14 AM CDT [facility] HGB 7.8(L) 12.3 - 15.3 G/DL 03/22/2020 7:14 AM T [facility] HCT 25.2(L) 35.9 - 44.6 % 03/22/2020 7:14 AM T [facility] MCV 80.8 80.0 - 96.0 FL 03/22/2020 7:14 AM T [facility] MCH 25.0(L) 25.3 - 30.9 PG 03/22/2020 7:14 AM [facility] MCHC 31.0 31.0 - 34.1 G/DL 03/22/2020 7:14 AM [facility] RDW 16.5(H) 12.4 - 15.1 % 03/22/2020 7:14 AM [facility] PLT 321 151 - 353 x10'3/uL 03/22/2020 7:14 AM T [facility] MPV 8.0(L) 9.6 - 12.0 FL 03/22/2020 7:14 AM [facility] RBC MORPHOLOGY NORMAL 03/22/2020 7:14 AM T [facility] PLT MORPH. NORMAL 03/22/2020 7:14 AM [facility] WBC MORPHOLOGY NORMAL 03/22/2020 7:14 AM T [facility] LYMPHOCYTES % 29.5 15.8 - 45.0 % 03/22/2020 7:14 AM [facility] NEUTROPHILS % 53.5 42.1 - 71.9 % 03/22/2020 7:14 AM T [facility] MONOCYTES % 11.0 5.7 - 12.5 % 03/22/2020 7:14 AM CDT [facility] EOSINOPHILS 1.7 0.0 - 5.6 % 03/22/2020 7:14 AM CDT [facility] BASOPHILS 0.5 0.0 - 1.3 % 03/22/2020 7:14 AM CDT [facility] ABS. NEUTROPHILS TOTAL 3.54 1.40 - 6.00 x10'3/uL 03/22/2020 7:14 AM CDT [facility] IMMATURE GRANS % 3.8(H) 0.0 - 0.5 % 03/22/2020 7:14 AM CDT [facility] ABS. LYMPHOCYTES 1.95 0.80 - 4.70 x10'3/uL 03/22/2020 7:14 AM CDT [facility] 03/22/2020 6:55 AM CDT Pollo Hogue APRN LABORATORY Final Result [facility] [id number] [place] [address], * (ABNORMAL) IRON SAT PANEL (IRON,IBC,%SAT) (03/22/2020 6:55 AM CDT) IRON 33(L) 50 - 170 MCG/DL 03/22/2020 7:26 AM CDT [facility] IRON BINDING CAPACITY 133(L) 250 - 450 MCG/DL 03/22/2020 7:26 AM CDT [facility] IRON SATURATION 25 20 - 55 % 0 7:26 AM CDT [facility] 03/22/2020 6:55 AM CDT Durga Parekh MD LABORATORY Final Result [facility] [address] [place] [address], [place] [phone] * (ABNORMAL) VITAMIN B12 / FOLATE (03/22/2020 6:55 AM CDT) VITAMIN B12 S/P/B 4,687(H) 193 - 986 PG/ML 03/22/2020 8:34 AM CDT [facility] FOLATE 6.0(L) 8.6 - 58.9 NG/ML 03/22/2020 8:34 AM [facility]T [facility] [facility] 03/22/2020 6:55 AM CDT Durga Parekh MD LABORATORY Final Result Performing Organization Address [facility] Co de Phone Number [facility] [address] [place] [address], [place] [phone] * POCT glucose (03/22/2020 5:59 AM CDT) GLUCOSE POC 100 70 - 110 mg/dL 03/22/2020 6:11 AM CDT [facility] 03/22/2020 5:59 AM CDT Pollo Hogue APRN POCT ORDERABLES - DEVICE Final Result Performing Organization Address City/[facility]/ZIP Co de Phone Number [facility] [address] [place] [address], [place] [phone] * (ABNORMAL) POCT glucose (03/21/2020 8:25 PM CDT) GLUCOSE POC 137(H) 70 - 110 mg/dL 03/21/2020 8:55 PM CDT [facility] 03/21/2020 8:25 PM CDT Pollo Darian John CREAM BEATER POCT ORDERABLES - DEVICE Final Result Performing Organization Address City/[facility]/ZIP Co de Phone Number [facility] [address] [place] [address], [place] [phone] * POCT glucose (03/21/2020 4:13 PM CDT) GLUCOSE POC 100 70 - 110 mg/dL 03/21/2020 5:30 PM CDT [facility] 03/21/2020 4:13 PM CDT Pollo Farmer John CREAM BEATER POCT ORDERABLES - DEVICE Final Result Performing Organization Address [facility] Co de Phone Number [facility] [address] [place] [address], [place] [phone] * (ABNORMAL) BASIC METABOLIC PANEL (03/21/2020 12:09 PM CDT) GLUCOSE 100(H) 70 - 99 MG/DL 03/21/2020 12:42 PM CDT [facility] BUN 9 7 - 18 MG/DL 03/21/2020 12:42 PM CDT [facility] CREATININE S/P/B 0.84 0.55 - 1.02 MG/DL 03/21/2020 12:42 PM CDT [facility] SODIUM S/P/B 141 136 - 145 MMOL/L 03/21/2020 12:42 PM CDT [facility] POTASSIUM S/P/B 4.5 3.5 - 5.1 MMOL/L 03/21/2020 12:42 PM CDT [facility] CHLORIDE S/P/B 111(H) 100 - 108 MMOL/L 03/21/2020 12:42 PM CDT [facility] CO2 19.7(L) 21 - 32 MMOL/L 03/21/2020 12:42 PM CDT [facility] CALCIUM S/P/B 7.2(L) 8.5 - 10.1 MG/DL 03/21/2020 12:42 PM CDT [facility] ANION GAP 10.3 5 - 15 MMOL/L 03/21/2020 12:42 PM CDT [facility] BUN CREATININE RATIO 10.7 6 - 26 03/21/2020 12:42 PM CDT [facility] EGFR NON-AFR. AMER. 68(L) >90 ML/MIN/1.7 3 M2 03/21/2020 12:42 PM CDT [facility] EGFR AFR. AMER. 78(L) >90 ML/MIN/1.7 3 M2 03/21/2020 12:42 PM CDT [facility] Comment: NOTE: eGFR is not calculated for patients <18 years of age. This is an estimated GFR (CKD EPI) and should not be used for calculating drug doses. 03/21/2020 12:0 9 PM CDT Pollo Hogue APRN LABORATORY Final Result [facility] [address] [place] [address], * (ABNORMAL) CBC W/DIFF AUTOMATED (03/21/2020 12:09 PM CDT) WBC 7.3 4.4 - 11.0 x10'3/uL 03/21/2020 12:22 PM CDT [facility] RBC 3.22(L) 4.50 - 5.10 x10'6/uL 03/21/2020 12:22 PM CDT [facility] HGB 8.2(L) 12.3 - 15.3 G/DL 03/21/2020 12:22 PM CDT [facility] HCT 26.6(L) 35.9 - 44.6 % 03/21/2020 12:22 PM T [facility] MCV 82.6 80.0 - 96.0 FL 03/21/2020 12:22 PM CDT [facility] MCH 25.5 25.3 - 30.9 PG 03/21/2020 12:22 PM T [facility] MCHC 30.8(L) 31.0 - 34.1 G/DL 03/21/2020 12:22 PM T [facility] RDW 16.7(H) 12.4 - 15.1 % 03/21/2020 12:22 PM [facility] PLT 345 151 - 353 x10'3/uL 03/21/2020 12:22 PM T [facility] MPV 8.6(L) 9.6 - 12.0 FL 03/21/2020 12:22 PM T [facility] RBC MORPHOLOGY NORMAL 03/21/2020 12:22 PM [facility] PLT MORPH. NORMAL 03/21/2020 12:22 PM [facility] WBC MORPHOLOGY NORMAL 03/21/2020 12:22 PM [facility] LYMPHOCYTES % 23.1 15.8 - 45.0 % 03/21/2020 12:22 PM [facility] NEUTROPHILS % 60.5 42.1 - 71.9 % 03/21/2020 12:22 PM T [facility] MONOCYTES % 11.5 5.7 - 12.5 % 03/21/2020 12:22 PM [facility] EOSINOPHILS 1.5 0.0 - 5.6 % 03/21/2020 12:22 PM T [facility] BASOPHILS 0.5 0.0 - 1.3 % 03/21/2020 12:22 PM CDT [facility] ABS. NEUTROPHILS TOTAL 4.40 1.40 - 6.00 x10'3/uL 03/21/2020 12:22 PM CDT [facility] IMMATURE GRANS % 2.9(H) 0.0 - 0.5 % 03/21/2020 12:22 PM CDT [facility] ABS. LYMPHOCYTES 1.68 0.80 - 4.70 x10'3/uL 03/21/2020 12:22 PM CDT [facility] 03/21/2020 12:0 9 PM CDT us Pollo Hogue CREAM BEATER LABORATORY Final Result Performing Organization Address City/State/[facility] Co de Phone Number [facility] [address] [place] [address], [place] [phone] * [place] RETROPERITONEAL COMP (03/21/2020 10:53 AM [...] COMPARISON: CT 03/19/2020 TECHNIQUE: Examination performed by pneumatic jack operator using grayscale with color flow and spectral Doppler. Selected images submitted for interpretation. Worksheet completed. Procedure Note Driss Garcia MD - 03/21/2020 IMAGING STUDIES:US RETROPERITONEAL COMP DATE: 03/21/2020 9:33 AM INDICATION: left renal lesion noted on CT COMPARISON: CT 03/19/2020 TECHNIQUE: Examination performed by pneumatic jack operator using grayscalewith color flow and spectral [...] Driss Garcia, 03/21/2020 12:23 PM Cara Alvarado CREAM BEATER ULTRASOUND Final Re sult * POCT glucose (03/21/2020 6:07 AM CDT) GLUCOSE POC 107 70 - 110 mg/dL 03/21/2020 6:12 AM CDT [facility] 03/21/2020 6:07 AM CDT Durga Parekh MD POCT ORDERABLES - DEVICE Final Result [facility] [address] [place] [address], * O&P CONC&SMEAR TO REF LAB (03/20/2020 12:25 PM CDT) SPECIMEN SOURCE STOOL 0 12:54 PM CDT [facility] O & P EXAMINATION (STOOL) REPORT 03/29/2020 8:32 PM CDT [employer] [facility] Comment: Ova and Parasites, Concentrate and Permanent Smear Examination for Ova and Parasites SOURCE : STOOL Result/Comment: NO OVA AND PARASITES SEEN. Reference Range: ??No Ova and Parasites seen Routine Ova and Parasite Exam may not detect some parasites that occasionally cause diarrheal illness. Test code(s) 46706L[69699](Cryptosporidium Ag, DFA) and/or 35814W[22379] (Cyclospora and Isospora Exam) may be ordered to detect these parasites. One negative sample does not necessarily rule out the presence of a parasitic infection. Assay performed by wet mount after concentration. Parasite Exam, Trichrome Stain SOURCE : STOOL Result/Comment: NO OVA AND PARASITES SEEN. Routine Ova and Parasite Exam may not detect some parasites that occasionally cause diarrheal illness. Test code(s) 66882X[53935](Cryptosporidium Ag, DFA) and/or 51672L[83867] (Cyclospora and Isospora Exam) may be ordered to detect these parasites. One negative sample does not necessarily rule out the presence of a parasitic infection. For additional information, please refer to https://education.[employer]/faq/DRX504 (This link is being provided for informational/ educational purposes only.) Test Performed by [employer], [employer] [facility], [address] [place] [address] Gamal Gao M.D., Ph.D., Director of Laboratories , CLIA [id number] STOOL SPECIMEN / Unknown 03/20/2020 12:25 PM CDT Durga Parekh MD MICROBIOLOGY - GENERAL ORDERAB LES Final Result [facility] [address] [place] [address], [place] [phone] [facility] [address] [place] [address], [place] [phone] * CLOSTRIDIUM DIFFICILE (03/20/2020 11:25 AM CDT) C DIFFICILE TOXIN (STOOL) NEGATIVE NEGATIVE 03/20/2020 2:14 PM CDT [facility] STOOL SPECIMEN / Unknown 03/20/2020 11:25 AM CDT Durga aPrekh MD BODY FLUIDS AND STOOLS ORDERAB LES Final Result Performing Organization Address [facility]/ZIP Co de Phone Number [facility] [address] [place] [address], [place] [phone] * (ABNORMAL) LIPID PANEL (03/20/2020 5:30 AM CDT) CHOLESTEROL 51 <200.0 MG/DL 03/20/2020 6:40 AM CDT [facility] TRIGLYCERIDES 47 <150 MG/DL 03/20/2020 6:40 AM CDT [facility] HDL 36(L) >40.0 MG/DL 03/20/2020 6:40 AM CDT [facility] LDL (CALCULATED) 6 <100 MG/DL 03/20/20 20 6:40 AM CDT [facility] NON HDL CHOLESTEROL 15 <130 MG/DL 03/20 6:40 AM CDT [facility] CHOL/HDL RATIO 1.4 0.0 - 4.5 03/20/2020 6:40 AM CDT [facility] VLDL CALCULATION 9 5 - 55 MG/DL 03/20/2020 6:40 AM CDT [facility] LIPID INTERPRETATION 03/20/2020 6:40 AM CDT [facility] Comment: [facility] REPORT RECOMMENDATIONS: [...] MD LABORATORY Final Result Performing Organization Address City/[facility]/ZIP Co de Phone Number [facility] [address] [place] [address], * (ABNORMAL) MAGNESIUM (03/20/2020 5:30 AM CDT) MAGNESIUM 1.6(L) 1.8 - 2.4 MG/DL 03/20/2020 6:38 AM CDT [facility] 03/20/2020 5:30 AM CDT Madison Aaron MD LABORATORY Final Result Performing Organization Address [facility] Co de Phone Number [facility] [address] [place] [address], [place] [phone] * (ABNORMAL) BASIC METABOLIC PANEL (03/20/2020 5:30 AM CDT) GLUCOSE 74 70 - 99 MG/DL 03/20/2020 6:38 AM CDT [facility] BUN 24(H) 7 - 18 MG/DL 03/20/2020 6:38 AM CDT [facility] CREATININE S/P/B 1.59(H) 0.55 - 1.02 MG/DL 03/20/2020 6:38 AM CDT [facility] SODIUM S/P/B 140 136 - 145 MMOL/L 03/20/2020 6:38 AM CDT [facility] POTASSIUM S/P/B 5.0 3.5 - 5.1 MMOL/L 03/20/2020 6:38 AM CDT [facility] CHLORIDE S/P/B 110(H) 100 - 108 MMOL/L 03/20/2020 6:38 AM CDT [facility] CO2 20.2(L) 21 - 32 MMOL/L 03/20/2020 6:38 AM CDT [facility] CALCIUM S/P/B 7.4(L) 8.5 - 10.1 MG/DL 03/20/2020 6:38 AM CDT [facility] ANION GAP 9.8 5 - 15 MMOL/L 03/20/2020 6:38 AM CDT [facility] BUN CREATININE RATIO 15.1 6 - 26 03/20/2020 6:38 AM T [facility] EGFR NON-AFR. AMER. 31(L) >90 ML/MIN/1.7 3 M2 03/20/2020 6:38 AM CDT [facility] EGFR AFR. AMER. 36(L) >90 ML/MIN/1.7 3 M2 03/20/2020 6:38 AM T [facility] Comment: NOTE: eGFR is not calculated for patients <18 years of age. This is an estimated GFR (CKD EPI) and should not be used for calculating drug doses. 03/20/2020 5:30 AM CDT Madison Aaron MD LABORATORY Final Result [facility] [address] [place] [address], * (ABNORMAL) CBC W/DIFF AUTOMATED (03/20/2020 5:30 AM CDT) WBC 11.2(H) 4.4 - 11.0 x10'3/uL 03/20/2020 6:30 AM CDT [facility] RBC 3.10(L) 4.50 - 5.10 x10'6/uL 03/20/2020 6:30 AM CDT [facility] HGB 7.8(L) 12.3 - 15.3 G/DL 03/20/2020 6:30 AM CDT [facility] HCT 25.6(L) 35.9 - 44.6 % 03/20/2020 6:30 AM T [facility] MCV 82.6 80.0 - 96.0 FL 03/20/2020 6:30 AM [facility] MCH 25.2(L) 25.3 - 30.9 PG 03/20/2020 6:30 AM T [facility] MCHC 30.5(L) 31.0 - 34.1 G/DL 03/20/2020 6:30 AM [facility] RDW 16.1(H) 12.4 - 15.1 % 03/20/2020 6:30 AM [facility] PLT 336 151 - 353 x10'3/uL 03/20/2020 6:30 AM [facility] MPV 9.0(L) 9.6 - 12.0 FL 03/20/2020 6:30 AM [facility] RBC MORPHOLOGY NORMAL 03/20/2020 6:30 AM [facility] PLT MORPH. NORMAL 03/20/2020 6:30 AM [facility] WBC MORPHOLOGY NORMAL 03/20/2020 6:30 AM [facility] LYMPHOCYTES % 15.5(L) 15.8 - 45.0 % 03/20/2020 6:30 AM T [facility] NEUTROPHILS % 70.7 42.1 - 71.9 % 03/20/2020 6:30 AM T [facility] MONOCYTES % 11.5 5.7 - 12.5 % 03/20/2020 6:30 AM [facility] EOSINOPHILS 0.8 0.0 - 5.6 % 03/20/2020 6:30 AM [facility] BASOPHILS 0.3 0.0 - 1.3 % 03/20/2020 6:30 AM CDT [facility] ABS. NEUTROPHILS TOTAL 7.93(H) 1.40 - 6.00 x10'3/uL 03/20/2020 6:30 AM CDT [facility] IMMATURE GRANS % 1.2(H) 0.0 - 0.5 % 03/20/2020 6:30 AM CDT [facility] ABS. LYMPHOCYTES 1.74 0.80 - 4.70 x10'3/uL 03/20/2020 6:30 AM CDT [facility] 03/20/2020 5:30 AM CDT us Madison Aaron MD LABORATORY Final Result Performing Organization Address City/[facility]/ZIP Co de Phone Number [facility] [address] [place] [address], [place] [phone] * CULTURE, BACTERIA, BLOOD (03/20/2020 5:21 AM CDT) SPEC DESCRIPTION BLOOD 03/19/2020 11:05 PM CDT [facility] SPECIAL REQUESTS NO SPECIAL REQUEST 03/19/2020 11:05 PM CDT [facility] CULTURE RESULT NO GROWTH 5 DAYS 2020 3:42 PM CDT [facility] BLOOD SPECIMEN OBTAINED FOR BLOOD CULTURE / Unknown 03/20/2020 5:21 AM CDT 03/20/2020 5:22 AM CDT Mahesh Nelson MD MICROBIOLOGY - GENERAL MIA LEARY Final Result [facility] [address] [place] [address], [place] [phone] [facility] [address] [place] [address], [place] [phone] * (ABNORMAL) CULTURE, BACTERIA, BLOOD (03/20/2020 5:21 AM CDT) SPEC DESCRIPTION BLOOD 03/19/2020 11:05 PM CDT [facility] SPECIAL REQUESTS NO SPECIAL REQUEST 03/19/2020 11:05 PM CDT [facility] GRAM STAIN RESULT MODERATE GRAM POSITIVE COCCI RESEMBLING STAPHYLOCOCCUS SPECIES 03/22/2020 2:54 AM CDT [facility] CULTURE RESULT GROWTH OF STAPH. SPECIES NOT STAPH. AUREUS SUSCEPTIBILTY NOT ROUTINELY PERFORMED. SAVING ISOLATE FOR 5 DAYS. CONTACT MICROBIOLOGY DEPARTMENT IF FURTHER WORKUP IS INDICATED. (AA) 03/23/2020 9:47 AM CDT [facility] CULTURE RESULT CALLED TO AND READ BACK BY CHIKA BORREGO ON 03/22/20 AT 0250 BY [facility] 03/23/2020 9:47 AM CDT [facility] BLOOD SPECIMEN OBTAINED FOR BLOOD CULTURE / Unknown 03/20/2020 5:21 AM CDT 03/20/2020 5:22 AM CDT Mahesh Nelson MD MICROBIOLOGY - GENERAL MIA LEARY Final Result [facility] [address] [place] [address], [facility] [address] [place] [address], * ECG 12 lead (03/19/2020 11:20 PM CDT) 03/19/2020 11:2 0 PM CDT Narrative [facility] ([facility]) RAD - 03/20/2020 7:18 AM CDT ?[facility] ? Test Date: ?2020-03-19 Pat Name: ? RADHA ALLEN ? Department: ? Room: ? 120 Gender: ? Female ? Cage Tender: ?? : ?1945 ? Requested By: MAHESH BRAHMAVAR Order Number: [id number] ? Reading MD: ?? Keven Gunter ? Measurements Intervals ?Geismar ? Rate: ? 78 ? P: ?53 [place]: ? 137 ?QRS: ?22 QRSD: ? 87 ? T: ?12 QT: ? 355 ? QTc: ?405 ? Interpretive Statements SINUS RHYTHM LOW QRS VOLTAGE IN PRECORDIAL LEADS ?? No previous ECG available for comparison Procedure Note Keven Gunter MD - 03/20/2020 [facility] Test Date: 2020-03-19 Pat Name: RADHA ALLEN Department: Room: 120 Gender: Female Cage Tender: : 1945 Requested By: MAHESH NELSON Order Number: [id number] Reading MD: Keven Gunter Measurements Intervals Geismar Rate: 78 P: 53 [place]: 137 QRS: 22 QRSD: 87 T: 12 QT: 355 QTc: 405 Interpretive Statements SINUS RHYTHM LOW QRS VOLTAGE IN PRECORDIAL LEADS No previous ECG available for comparison us Mahesh Nelson MD ECG ORDERABLES Final Resul t [facility]) RAD * CT ABD+PEL WO CON [...] - 2.0 MMOL/L 03/19/2020 9:24 PM CDT [facility] 03/19/2020 8:45 PM CDT us Mahesh Nelson MD LABORATORY Final Resul t Performing Organization Address [facility] Co de Phone Number [facility] [address] [place] [address], [place] [phone] * LIPASE (03/19/2020 8:45 PM CDT) LIPASE 74 73 - 393 UNITS/L 03/19/2020 9:19 PM CDT [facility] 03/19/2020 8:45 PM CDT us Mahesh Nelson MD LABORATORY Final Resul t Performing Organization Address [facility] Co de Phone Number [facility] [address] [place] [address], [place] [phone] * (ABNORMAL) COMPREHENSIVE METABOLIC PANEL (03/19/2020 8:45 PM CDT) GLUCOSE 107(H) 70 - 99 MG/DL 03/19/2020 9:19 PM CDT [facility] BUN 28(H) 7 - 18 MG/DL 03/19/2020 9:19 PM [facility] CREATININE S/P/B 2.27(H) 0.55 - 1.02 MG/DL 03/19/2020 9:19 PM [facility] SODIUM S/P/B 135(L) 136 - 145 MMOL/L 03/19/2020 9:19 PM [facility] POTASSIUM S/P/B 5.3(H) 3.5 - 5.1 MMOL/L 03/19/2020 9:19 PM [facility] CHLORIDE S/P/B 102 100 - 108 MMOL/L 03/19/2020 9:19 PM [facility] CO2 20.2(L) 21 - 32 MMOL/L 03/19/2020 9:19 PM [facility] CALCIUM S/P/B 8.4(L) 8.5 - 10.1 MG/DL 03/19/2020 9:19 PM [facility] BILIRUBIN TOTAL S/P/B 0.4 0.2 - 1.2 MG/DL 03/19/2020 9:19 PM [facility] TOTAL PROTEIN S/P/B 7.4 6.4 - 8.2 G/DL 03/19/2020 9:19 PM [facility] ALBUMIN S/P/B 2.5(L) 3.4 - 5.0 G/DL 03/19/2020 9:19 PM [facility] AST 21 15 - 37 U/L 03/19/2020 9:19 PM [facility] ALT 16 14 - 55 U/L 03/19/2020 9:19 PM [facility] ALKALINE PHOSPHATASE S/P/B 103 50 - 136 U/L 03/19/2020 9:19 PM [facility] ANION GAP 12.8 5 - 15 MMOL/L 03/19/2020 9:19 PM CDT [facility] BUN CREATININE RATIO 12.3 6 - 26 03/19/2020 9:19 PM CDT [facility] A/G RATIO 0.5(L) 1.0 - 2.0 RATIO 03/19/2020 9:19 PM CDT [facility] EGFR NON-AFR. AMER. 20(L) >90 ML/MIN/1.7 3 M2 03/19/2020 9:19 PM CDT [facility] EGFR AFR. AMER. 24(L) >90 ML/MIN/1.7 3 M2 03/19/2020 9:19 PM CDT [facility] Comment: NOTE: eGFR is not calculated for patients <18 years of age. This is an estimated GFR (CKD EPI) and should not be used for calculating drug doses. 03/19/2020 8:45 PM CDT us Mahesh Nelson MD LABORATORY Final Resul t [facility] [address] [place] [address], [place] [phone] * (ABNORMAL) CBC W/DIFF AUTOMATED (03/19/2020 8:45 PM CDT) WBC 18.1(H) 4.4 - 11.0 x10'3/uL 03/19/2020 9:03 PM CDT [facility] RBC 3.78(L) 4.50 - 5.10 x10'6/uL 03/19/2020 9:03 PM CDT [facility] HGB 9.5(L) 12.3 - 15.3 G/DL 03/19/2020 9:03 PM CDT [facility] HCT 31.0(L) 35.9 - 44.6 % 03/19/2020 9:03 PM CDT [facility] MCV 82.0 80.0 - 96.0 FL 03/19/2020 9:03 PM T [facility] MCH 25.1(L) 25.3 - 30.9 PG 03/19/2020 9:03 PM T [facility] MCHC 30.6(L) 31.0 - 34.1 G/DL 03/19/2020 9:03 PM T [facility] RDW 16.0(H) 12.4 - 15.1 % 03/19/2020 9:03 PM T [facility] PLT 476(H) 151 - 353 x10'3/uL 03/19/2020 9:03 PM T [facility] MPV 8.7(L) 9.6 - 12.0 FL 03/19/2020 9:03 PM T [facility] SEG NEUTROPHILS 76(H) 42 - 72 % 0 9:20 PM T [facility] BANDS 2 % 03/19/2020 9:20 PM T [facility] LYMPHOCYTES 13(L) 15.8 - 45.0 % 03/19/2020 9:20 PM T [facility] MONOCYTES 9 5.7 - 12.5 % 03/19/2020 9:20 PM T [facility] ABS. NEUTROPHILS TOTAL 14.12(H) 1.40 - 6.00 x10'3/uL 03/19/2020 9:20 PM T [facility] ABS. LYMPHOCYTES 2.35 0.80 - 4.70 x10'3/uL 03/19/2020 9:20 PM T [facility] PLT MORPH. NORMAL 03/19/2020 9:20 PM T [facility] RBC MORPHOLOGY NORMAL 03/19/2020 9:20 PM CDT [facility] WBC MORPHOLOGY NORMAL 03/19/2020 9:20 PM CDT [facility] 03/19/2020 8:45 PM CDT Mahesh Nelson MD LABORATORY Final Resul t [facility] [address] [facility] [address], [place] [phone] documented in this encounter Visit Diagnoses Diagnosis Colitis- Primary Other and unspecified noninfectious gastroenteritis and colitis JENNY (acute kidney injury) ([facility]) Acute kidney failure, unspecified Colitis Other and unspecified noninfectious gastroenteritis and colitis Ulcerative colitis without complications, unspecified location ([facility]) Iron deficiency anemia, unspecified iron deficiency anemia [...] Minnie Nelson RN) 0954 (Given - Provider: Tirea Trivedi, Nurse Student) metoprolol tartrate (LOPRESSOR) tablet [...] 0050 (Infusion Stop Time - Provider: Shu eParl, ELMO)1800 (Canceled Entry - Provider: Automatic Discharge Provider - Comment: Automatically canceled at discontinue of medication order) vancomycin (VANCOCIN) 1,500 mg in sodium chloride 0.9 % 500 mL IVPB (COMPLETED) 1,500 mg, Intravenous, at 257.5 mL/hr, Once, 1 dose, On Fri03/22/20 at 0430 0436 (New Bag - Provider: Chiak Hatfield, ELMO)0634 (Infusion Stop Time - Provider: [...] entered.) documented in this encounter Care Teams Clerical Administrative Assistant Relationship Specialty Start Date End Date Jared Leyva MD PCP - General 08/28/11 07/16/22 documented as of this encounter
--- OUTSIDE RECORDS SUMMARY | 2024-08-18 10:40 | XMS_ITS | Encounter Summary ---
Author Organization [facility] Address [address] [place] [address] [place] [address] Care Team Providers Care Forming And Assembling Supervisor Name Role Phone Jared Abrams MD Primary Care Provider [phone] Encounter Details Date Type Department Care Team [...] Status Yes 03/23/2020 1:13 PM CDT Hannah eRagan RN Active * Do you have difficulty [...] Date Type Department Care Team ([facility]) Description 09/28/2024 2:30 PM PRESCHOOL EDUCATION DIRECTOR Appointment [facility] [id number] [place] [id number] Josué Cook MD [address] [address] documented as of this encounter Goals Goal Patient Goal Type Associated Problems Recent Progress Patient-Stated? Author [facility] General No Vannessa Blackwell RN documented as of this encounter Visit Diagnoses Not on filedocumented in this encounter Care Teams Forming And Assembling Supervisor Relationship Specialty Start Date End Date Jared Abrams MD PCP - General 08/28/11 07/16/22 documented as of this encounter
--- OUTSIDE RECORDS SUMMARY | 2024-08-18 10:40 | XMS_ITS | Encounter Summary ---
Author Organization [facility] Address [address] [facility] [place] [address] [place] [address] Care Team Providers Care Insurance Follow Up Specialist Name Role Phone Jared Abrams MD Primary Care Provider [phone] Encounter Details Date Type Department Care Team [...] Date Type Department Care Team (Late st [facility]) Description 09/28/2024 2:30 PM METER INSPECTOR Appointment [facility] [id number] [place] [address] Josué Cook MD [address] [address] documented as of this encounter Goals Goal Patient Goal Type Associated Problems Recent Progress Patient-Stated? Author [facility] General No Vannessa Blackwell RN documented as of this encounter Visit Diagnoses Not on filedocumented in this encounter Care Teams Insurance Follow Up Specialist Relationship Specialty Start Date End Date Jared Abrams MD PCP - General 08/28/11 07/16/22 documented as of this encounter
--- OUTSIDE RECORDS SUMMARY | 2024-08-18 10:40 | XMS_ITS | Encounter Summary ---
Author Organization [facility] Address [address] [facility] [place] [address] [place] [address] Care Team Providers Care Newspaper Writer Name Role Phone Jared Abrams MD Primary Care Provider [phone] Reason for Visit * Reason Comments Ulcerative Colitis diarrhea * Consultation/Treatment (Routine) - Closed Specialty Diagnoses / Procedures Referred By Angel braswell Referred To Contact GASTROENTEROLOGY Diagnoses FU Procedures FOLLOW UP Jared Abrams MD [address] [place] [address] Phone: tel: fax: Vladimir Parsons MD [address] [address] Phone: tel: fax: Referral ID Status Reason Start Date Expiration Date Visits Re quested Visits Authorized [id number] Closed 11/16/2020 07/06/2022 100 100 Encounter Details Date Type Department Care Team (Latest Contact Info) Description 05/11/2021 2:40 PM CDT Office Visit [facility] [address] [address] Vladimir Parsons MD [address] [address] Ulcerative Colitis (diarrhea ) Social [...] biopsies performed by Vladimir Parsons MD at [facility] OR ??? PARTIAL HIP REPLACEMENT [...] st Contact Info) Description 09/28/2024 2:30 PM CANDLES POURER Appointment [address] [address] Josué Cook MD [address] [address] documented as of this encounter Goals Goal Patient Goal Type Associated Problems Recent Progress Patient-Stated? Author [facility] General No Vannessa Blackwell, RN documented as of this encounter Visit Diagnoses Diagnosis Ulcerative colitis with complication, unspecified location (CMS/HCC [facility])- Primary documented in this encounter Care Teams Newspaper Writer Relationship Specialty Start Date End Date Jared Abrams MD PCP - General 08/28/11 07/16/22 documented as of this encounter
--- OUTSIDE RECORDS SUMMARY | 2024-08-18 10:40 | XMS_ITS | Encounter Summary ---
Author Organization [facility] Address [address] [facility] [place] [address] [place] [address] Care Team Providers Care Hardening Machine Operator Helper Name Role Phone Jared Abrams MD Primary Care Provider [phone] Encounter Details Date Type Department Care Team [...] Date Type Department Care Team (Late st [facility] Info) Description 09/28/2024 2:30 PM HOME HOSPICE AIDE Appointment [facility] [address] [place] [address] Josué Cook MD [address] [address] documented as of this encounter Goals Goal Patient Goal Type Associated Problems Recent Progress Patient-Stated? Author [facility] General No Vannessa Blackwell RN documented as of this encounter Visit Diagnoses Not on filedocumented in this encounter Care Teams Hardening Machine Operator Helper Relationship Specialty Start Date End Date Jared Abrams MD PCP - General 08/28/11 07/16/22 documented as of this encounter
--- OUTSIDE RECORDS SUMMARY | 2024-08-18 10:40 | XMS_ITS | Encounter Summary ---
Author Organization [facility] Address [address] [facility] [place] [address] [place] [address] Care Team Providers Care Iron Handler Name Role Phone Jared Abrams MD Primary Care Provider [phone] Reason for Visit * Reason Onset Date Comments Hospital Follow Up 03/24/2020 Encounter Details Date Type Department Care Team (Late st Contact Info) Description 03/24/2020 Telephone [facility] Med/Surg [address] [place] [address] Rhonda Garber, RN Hospital Follow Up Social [...] Department Care Team (Late Contact Info) Description 09/28/2024 2:30 PM INTELLIGENCE INTERN Appointment [facility] [address] [place] [address] Josué Cook MD [address] [facility] [address] [place] [address] documented as of this encounter Goals Goal Patient Goal Type Associated Problems Recent Progress Patient-Stated? Author [facility] General No Vannessa Blackwell RN documented as of this encounter Visit Diagnoses Not on filedocumented in this encounter Care Teams Iron Handler Relationship Specialty Start Date End Date Jared Abrams MD PCP - General 08/28/11 07/16/22 documented as of this encounter
--- OUTSIDE RECORDS SUMMARY | 2024-08-18 10:40 | XMS_ITS | Encounter Summary ---
Author Organization [facility] Address [address] [place] [address] [place] [address] Care Team Providers Care Continuity Editor Name Role Phone Jared Abrams MD Primary Care Provider [phone] Encounter Details Date Type Department Care Team [...] COVID-19? No / Unsure 07/06/2021 2:18 PM JUNIOR PHP DEVELOPER documented as of this encounter Functional [...] st Contact Info) Description 09/28/2024 2:30 PM JUNIOR PHP DEVELOPER Appointment [facility] [address] [place] [address] Josué Cook MD [address] [address] documented as of this encounter Goals Goal Patient Goal Type Associated Problems Recent Progress Patient-Stated? Author [facility] General No Vannessa Blackwell RN documented as of this encounter Visit Diagnoses Not on filedocumented in this encounter Additional Health Concerns Assessment Noted Time PHQ-9 Depression Total Score: 0 07/06/20 21 4:06 PM JUNIOR PHP DEVELOPER documented as of this encounter Care Teams Continuity Editor Relationship Specialty Start Date End Date Jared Abrams MD PCP - General 08/28/11 07/16/22 documented as of this encounter
--- OUTSIDE RECORDS SUMMARY | 2024-08-18 10:40 | XMS_ITS | Encounter Summary ---
Author Organization [facility] Address [address] [facility] [place] [address] [place] [address] Care Team Providers Care Nurse Practitioner Physician Assistant Name Role Phone Jared Abrams MD Primary Care Provider [phone] Reason for Visit * Reason Onset Date Comments Diarrhea 05/09/2021 Encounter Details Date Type Department Care Team (Late st Contact Info) Description 05/09/2021 Telephone [facility] Medical Group Multispecialty Care - [facility] [address] [facility], [address] [place] [id number] Vladimir Parsons MD 3 [facility] [address] [place] [address] Diarrhea Social History Tobacco Use Types Packs/Day [...] 3:58 PM CDT Pt came to the [facility] and Dr. Parsons saw her * Hayley Leon - 05/09/2021 2:11 PM CDT Patient has been having diarrhea every day, and wants to know what she can take. Please follow up with patient. documented in this encounter Plan of Treatment Upcoming Encounters Date Type Department Care Team (Late st Contact Info) Description 09/28/2024 2:30 PM SENIOR FUNCTIONAL ANALYST Appointment [facility] Day [facility] [address] [place] [address] Josué Cook MD [address] [address] documented as of this encounter Goals Goal Patient Goal Type Associated Problems Recent Progress Patient-Stated? Author [facility] General No Vannessa Blackwell RN documented as of this encounter Visit Diagnoses Not on filedocumented in this encounter Care Teams Nurse Practitioner Physician Assistant Relationship Specialty Start Date End Date Jared Abrams MD PCP - General 08/28/11 07/16/22 documented as of this encounter
--- OUTSIDE RECORDS SUMMARY | 2024-08-18 10:40 | XMS_ITS | Encounter Summary ---
Author Organization [facility] Address [address] [place] [address] [place] [address] Care Team Providers Care Meeting Specialist Name Role Phone Jared Abrams MD Primary Care Provider [phone] Reason for Visit * Reason Comments Ulcerative Colitis pt is here for a 3 m [facility] follow up, has questions regarding medication * Consultation/Treatment (Routine) - Closed Specialty Diagnoses / Procedures Referred By Angel t Referred To Contact GASTROENTEROLOGY Diagnoses FOLLOW UP Jared Abrams MD [facility] [place] [address] Phone: tel: fax: Vladimir Parsons MD [address] [address] Phone: tel: fax: Referral ID Status Reason Start Date Expiration Date Visits Re quested Visits Authorized [id number] Closed 07/07/2020 07/07/2022 100 100 Encounter Details Date Type Department Care Team (Latest Contact Info) Description 07/07/2020 3:40 PM CERTIFIED SURGICAL ASSISTANT Office Visit [facility] [address] [address] Vladimir Parsons MD [address] [address] Ulcerative Colitis (pt is here [...] COVID-19? No / Unsure 07/07/2020 3:04 PM CERTIFIED SURGICAL ASSISTANT documented as of this encounter Last Filed Vital Signs Vital Sign Reading Time Taken Comments Blood Pressure 122/64 07/07/2020 3:30 PM CERTIFIED SURGICAL ASSISTANT Pulse 72 07/07/2020 3:30 PM CERTIFIED SURGICAL ASSISTANT Temperature - - Respiratory Rate 18 07/07/2020 3:30 PM CERTIFIED SURGICAL ASSISTANT Oxygen Saturation 96% 07/07/2020 3:30 PM CERTIFIED SURGICAL ASSISTANT Inhaled Oxygen Concentration - - Weight 73 kg (161 lb) 07/07/2020 3:30 PM CERTIFIED SURGICAL ASSISTANT Height 154.9 cm (5' 1 ) 07/07/2020 3:30 PM CERTIFIED SURGICAL ASSISTANT Body Mass Index 30.42 07/07/2020 3:30 PM CERTIFIED SURGICAL ASSISTANT documented in this encounter Functional Status * [...] biopsies performed by Vladimir Parsons MD at [facility] OR ??? PARTIAL HIP [...] PARSONS MD 07/07/2020 Voice recognition software utilized IFIED SURGICAL ASSISTANT documented in this encounter Plan of Treatment Upcoming Encounters Date Type Department Care Team (Late st Contact Info) Description 09/28/2024 2:30 PM CERTIFIED SURGICAL ASSISTANT Appointment [address] [address] Josué Cook MD [address] [facility] 8 [place] [address] documented as of this encounter Goals Goal Patient Goal Type Associated Problems Recent Progress Patient-Stated? Author [facility]IV[facility] General No Vannessa Blackwell RN documented as of this encounter Visit Diagnoses Diagnosis Ulcerative colitis with complication, unspecified location (CMS/HCC [facility]/HCC) documented in this encounter Care Teams Meeting Specialist Relationship Specialty Start Date End Date Jared Abrams MD PCP - General 08/28/11 07/16/22 documented as of this encounter
--- OUTSIDE RECORDS SUMMARY | 2024-08-18 10:40 | XMS_ITS | Encounter Summary ---
Author Organization [facility] Address [address] [facility] [place] [address] [place] [address] Care Team Providers Care Wing Mailer Machine Operator Name Role Phone Jared Abrams MD Primary Care Provider [phone] Reason for Visit * Auth/Cert Specialty Diagnoses / Procedures Referred By Angel braswell Referred To Contact Diagnoses Colitis JENNY (acute kidney injury) ([facility]) Colitis Referral ID Status Reason Start Date Expiration Date Visits Re quested Visits Authorized [id number] 1 1 Encounter Details Date Type Department Care Team (Late st Contact Info) Description 03/22/2020 10:07 AM CDT Anesthesia Event [facility] [address] [place] [address] Rochelle García CRNA 2022 [place] [address] Anesthesia Record Procedure Summary Procedure Name Responsible Anesthesiologist Anesthesia Start Time Anesthesia Stop Time colonoscopy with biopsies Rochelle García CRNA 03/22/20 1007 03/22/20 1026 Events Date Time Event Comment 03/22/2020 0931 0932 AN TEACHER SELECTION SPECIALIST Prepped 1007 An Start Patient ID and [...] st Contact Info) Description 09/28/2024 2:30 PM LEISURE TRAVEL AGENT Appointment [address] [address] Josué Cook MD [address] [facility] 8 [place] [address] documented as of this encounter Goals Goal [...] mg documented in this encounter Care Teams Wing Mailer Machine Operator Relationship Specialty Start Date End Date Jared Abrams MD PCP - General 08/28/11 07/16/22 documented as of this encounter
--- OUTSIDE RECORDS SUMMARY | 2024-08-18 10:40 | XMS_ITS | Encounter Summary ---
Author Organization [facility] Address [address] [place] [address] [place] [address] Care Team Providers Care Web Publisher Name Role Phone Jared Abrams MD Primary Care Provider [phone] Reason for Visit * Reason Comments Hospital Follow Up pt is getting better * Consultation/Treatment (Routine) - Closed Specialty Diagnoses / Procedures Referred By Angel braswell Referred To Contact GASTROENTEROLOGY Diagnoses Hospital f/u-EGD Procedures NEW PATIENT Vladimir Parsons MD 3 [facility] [address] [place] [address] Phone: tel: fax: Vladimir Parsons MD 3 [facility] [address] [place] [address] Phone: tel: fax: Referral ID Status Reason Start Date Expiration Date Visits Re quested Visits Authorized [id number] Closed 04/07/2020 04/07/2022 100 100 Encounter Details Date Type Department Care Team (Latest Contact Info) Description 04/07/2020 3:40 PM CDT Office Visit [facility] Specialty Clinic [address] [address] Vladimir Parsons MD 3 [facility] [address] [place] [address] Hospital Follow Up (pt is [...] biopsies performed by Vladimir Parsons MD at [facility] OR ??? PARTIAL HIP [...] st Contact Info) Description 09/28/2024 2:30 PM SCORING MACHINE OPERATOR Appointment [address] [address] Josué Cook MD [address] [facility] 8 [place] [address] documented as of this encounter Goals Goal Patient Goal Type Associated Problems Recent Progress Patient-Stated? Author [facility]IV[facility] General No Vannessa Blackwell, RN documented as of this encounter Visit Diagnoses Diagnosis Ulcerative colitis with complication, unspecified location (CMS/HCC [facility]/HCC)- Primary documented in this encounter Care Teams Web Publisher Relationship Specialty Start Date End Date Jared Abrams MD PCP - General 08/28/11 07/16/22 documented as of this encounter
--- OUTSIDE RECORDS SUMMARY | 2024-08-18 10:41 | XMS_ITS | Encounter Summary ---
Author Organization [facility] Address [address] [facility] [place] [address] [place] [address] Care Team Providers Care Wool Classer Name Role Phone Jared Abrams MD Primary Care Provider [phone] Encounter Details Date Type Department Care Team (Late st Contact Info) Description 01/19/2014 Abstract [facility] [address] [place] [address] Jared Abrams MD [address] [place], [place] [id number] Social History Tobacco Use Types Packs/Day Years [...] st Contact Info) Description 09/28/2024 2:30 PM SKATE MAKER Appointment [facility] [address] [place] [address] Josué Cook MD [facility] [address] documented as of this encounter Visit Diagnoses Diagnosis Pain in joint, lower leg documented in this encounter Care Teams Wool Classer Relationship Specialty Start Date End Date Jared Abrams MD PCP - General 08/28/11 07/16/22 documented as of this encounter
--- OUTSIDE RECORDS SUMMARY | 2024-08-18 10:41 | XMS_ITS | Encounter Summary ---
Author Organization [facility] Address [address] [facility] [place] [address] [place] [address] Care Team Providers Care Correctional Lieutenant Name Role Phone Jared Abrams MD Primary Care Provider [phone] Encounter Details Date Type Department Care Team (Late Contact Info) Description 01/21/2011 Abstract [facility] [address] [place] [address] David Foy, DIVER'S TENDER [address] [place], [place] [id number] Social History Tobacco Use Types Packs/Day Years [...] (Late Contact Info) Description 09/28/2024 2:30 PM WIRE SPOOLER Appointment [facility] [address] [place] [address] Josué Cook MD [address] [facility] 8 [place] [address] documented as of this encounter Visit Diagnoses Diagnosis Pain in joint, pelvic region and thigh documented in this encounter Care Teams Correctional Lieutenant Relationship Specialty Start Date End Date Jared Abrams MD PCP - General 08/28/11 07/16/22 documented as of this encounter
--- OUTSIDE RECORDS SUMMARY | 2024-08-18 10:41 | XMS_ITS | Encounter Summary ---
Author Organization [facility] Address [address] [facility] [place] [address] [place] [address] Care Team Providers Care Pipeline Engineer Name Role Phone Jared Abrams MD Primary Care Provider [phone] Encounter Details Date Type Department Care Team (Late st Contact Info) Description 02/11/2014 Abstract [facility] [address] [place] [address] Saji Vargas MD [address] [id number] Social History Tobacco Use Types Packs/Day Years [...] st Contact Info) Description 09/28/2024 2:30 PM ADVERTISING ASSISTANT Appointment [facility] [address] [place] [address] Josué Cook MD [address] [address] documented as of this encounter Visit Diagnoses Diagnosis Osteoarthrosis involving lower leg documented in this encounter Care Teams Pipeline Engineer Relationship Specialty Start Date End Date Jared Abrams MD PCP - General 08/28/11 07/16/22 documented as of this encounter
--- OUTSIDE RECORDS SUMMARY | 2024-08-18 10:41 | XMS_ITS | Encounter Summary ---
Author Organization [facility] Address [address] [facility] [place] [address] [place] [address] Care Team Providers Care Counselor/Art Therapist Name Role Phone Jared Abrams MD Primary Care Provider [phone] Encounter Details Date Type Department Care Team (Late st Contact Info) Description 06/12/2012 Abstract [facility] [address] [place] [address] Jared Abrams MD [address] [place] [address] Social History Tobacco Use Types Packs/Day Years [...] st Contact Info) Description 09/28/2024 2:30 PM PEN TENDER Appointment [facility] [address] [place] [address] Josué Cook MD [address] [place] [address] documented as of this encounter Visit Diagnoses Diagnosis Other and unspecified hyperlipidemia documented in this encounter Care Teams Counselor/Art Therapist Relationship Specialty Start Date End Date Jared Abrams MD PCP - General 08/28/11 07/16/22 documented as of this encounter
--- OUTSIDE RECORDS SUMMARY | 2024-08-18 10:41 | XMS_ITS | Encounter Summary ---
Author Organization [facility] Address [address] [place] [address] [place] [address] Care Team Providers Care Strategic Planning Specialist Name Role Phone Jared Leyva MD Primary Care Provider [phone] Reason for Visit * Reason Comments Diarrhea * Auth/Cert Specialty Diagnoses / Procedures Referred By Contclemencia t Referred To Contact Diagnoses Colitis JENNY (acute kidney injury) ([facility]) Colitis Referral ID Status Reason Start Date Expiration Date Visits Re quested Visits Authorized [id number] 1 1 Encounter Details Date Type Department Care Team (Late st Contact Info) Description 03/22/2020 11:42 AM CDT - 03/22/2020 12:14 PM CDT Surgery [facility] [address] [place] [address] Indigo Parsons MD [address] [place] [address] [phone] colonoscopy with biopsies Surgery Details Date/Time Status [...] Author Status No 03/23/2020 1:13 PM CDT Hnanah Reagan RN Active documented in this encounter [...] No results for input(s): PH, PCO2, PO2, R9EVGERLLYHD, BICARBWB, BASEDEFICIT, BASEEXCESS in the [id number] hours. No results found for this or any previous visit. Radiology Reports : Results for orders placed or performed during the hospital encounter of 03/19/20 ECG 12 lead ?? Narrative ?? [facility] Test Date: 2020-03-19 Pat Name: RADHA ALLEN Department: Room: 120 Gender: Female Annealer: : 1945 Requested By: MAHESH NELSON Order Number: [id number] Reading MD: Keven Gunter Measurements Intervals Wahoo Rate: 78 P: 53 VT: 137 QRS: 22 QRSD: 87 T: 12 QT: 355 QTc: 405 Interpretive Statements SINUS RHYTHM LOW QRS VOLTAGE IN PRECORDIAL LEADS No previous ECG available for comparison ?? CT ABD+PEL WO CON [[id number]] Collected: 03/20/20825 ?? Updated: 03/20/20834 Narrative: ?? [...] Your Medications These medications were sent to [id number] - [place], [place] - [address] [facility] [address] [address] [address] [facility] [id number] ?? ferrous sulfate EC 324 (65 Fe) [...] Care Everywhere. * Ulcerative Colitis Discharge Instructions (Citizen Of [place]) * Diet for Ulcerative Colitis (Citizen Of [place]) documented in this encounter Medications at Time [...] Mac RN - 03/23/2020 11:11 AM CDT [facility] for discharge planning @1100 with HOSPITALIST, SPONGE PRESS OPERATOR, CM, UR, PASTORAL CARE, PHARMACY, CARDIOPULMONARY, INPATIENT CODER, HH. F/u with Dr. Parsons (GI) after [...] 1 g Intravenous Q24H Darmaribel R Kristent, ASSISTANT SECRETARY 1 g at 03/22/20 1053 ??? enoxaparin (LOVENOX) 40 MG/0.4ML syringe 40 mg 40 mg Subcutaneous Q24H Darmaribel R John, ASSISTANT SECRETARY Stopped at 03/22/20 0918 ??? HYDROcodone-acetaminophen (NORCO) 5-325 MG tablet 1 tablet 1 tablet Oral Q4H PRN Madison Aaron MD ??? lactated ringers infusion Intravenous Continuous Indigo Parsons MD Stopped at 03/22/20 1045 ??? methylPREDNISolone sodium succinate (SOLU-Medrol) injection 40 mg 40 mg Intravenous Daily DarmaribelR John, ASSISTANT SECRETARY 40 mg at 03/22/20 1438 ??? metroNIDAZOLE (FLAGYL) IVPB 500 mg 500 mg Intravenous Q8H Pollo R John, ASSISTANT SECRETARY Stopped at 03/22/20 1153 ??? morphine injection [...] 0.9% infusion Intravenous Continuous Darmaribel R John, ASSISTANT SECRETARY 100 mL/hr at 03/22/20 1053 ??? [START ON 03/23/2020] vancomycin (VANCOCIN) 1,000 mg in sodium chloride 0.9 % 250 mL IVPB 1,000 mg Intravenous Q18H Darmaribel Darian Hogue, ASSISTANT SECRETARY ??? vitamin B-12 (CYANOCOBALAMIN) tablet 1,000 mcg [...] of 03/19/[address] ECG [address] [facility] Test Date: 2020-03-19 Pat Name: RADHA ALLEN Department: Room: 120 Gender: Female Annealer: : 1945 Requested By: MAHESH NELSON Order Number: [id number] Reading MD: Keven Gunter Measurements Intervals Wahoo Rate: 78 P: 53 VT: 137 QRS: 22 QRSD: 87 T: 12 QT: 355 QTc: 405 Interpretive Statements SINUS RHYTHM LOW QRS VOLTAGE IN PRECORDIAL LEADS No previous ECG available for comparison CT ABD+PEL WO CON [[id number]] Collected: 03/20/20825 ?? Updated: 03/20/20834 Narrative: ?? [...] CASE MANAGEMENT, UR, NURSING, PT, OT, CARDIOPULMONARY, INPATIENT CODER, HOSPITALIST HOME HEALTH,PASTORAL CARE, PHARMACY Meeting held at 1100. INPATIENT CODER REPORTS BLOOD CULTURE POSITIVE. WILL NOT DC [...] 0.9 % 50 mL IVPB 3.375 g [id number] Durga Parekh MD 12.5 mL/hr at 03/21/20 [...] encounter of 03/19/20 ECG 12 lead Narrative [facility] Test Date: 2020-03-19 Pat Name: RADHA ALLEN Department: Room: 120 Gender: Female Annealer: : 1945 Requested By: MAHESH NELSON Order Number: [id number] Reading MD: Keven Gunter Measurements Intervals [place]ahoo Rate: 78 P: 53 VT: 137 QRS: 22 QRSD: 87 T: 12 QT: 355 QTc: 405 Interpretive Statements SINUS RHYTHM LOW QRS VOLTAGE IN PRECORDIAL LEADS No previous ECG available for comparison CT ABD+PEL WO CON [[id number]] Collected: 03/20/20825 ?? Updated: 03/20/20834 Narrative: ?? [...] case management, UR, nursing, PT, OT, cardiopulmonary, INPATIENT CODER, Hospitalist, Pastoral Care, and Pharmacy. Meeting held at 11:00. Plan for colonoscopy tomorrow. 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 DAUGHTER IN AREA AND ASSISTS NEEDED. PATIENT IS VERY ACTIVE WITH MANDAEISM. DENIES NEED FOR HOME HEALTH ARE OTHER SERVICES documented in this encounter H&P Notes * Cara Alvarado, ASSISTANT SECRETARY - 03/20/2020 9:10 AM CDT Hospitalist History [...] file Gets together: Not on file Attends sabianist service: Not on file Active member of [...] & Other Studies CT ABD+PEL WO CON [[id number]] Collected: 03/20/20825 Updated: 03/20/2035 Narrative: ?? IMAGING [...] encounter of 03/19/20 ECG 12 lead [facility]arrative [facility] Test Date: 2020-03-19 Pat Name: RADHA ALLEN Department: Room: 120 Gender: Female Annealer: : 1945 Requested By: MAHESH NELSON Order Number: [id number] Reading MD: Keven Gunter Measurements Intervals Wahoo Rate: 78 P: 53 VT: 137 QRS: [...] from [place]. While there she had immersion religious. She noticed watery stools within a few [...] file Gets together: Not on file Attends sabianist service: Not on file Active member of [...] Parsons MD - 03/22/2020 10:27 AM CDT [facility] OpNote colonoscopy with biopsies Procedure Note Radhafatoumata Tolbert Alejandro 03/19/2020 - 03/22/2020 1142 Procedure(s) (LRB): colonoscopy with biopsies (N/A) Surgeon(s): Indigo Parsons MD Staff: Circulating Nurse 1: Miroslava Henderson RN director of dietary: Jody Francisco, AUTOMOTIVE TECHNOLOGY INSTRUCTOR Anesthesia: * No anesthesia type entered * ATHLETIC FIELD CUSTODIAN: Rochelle García CRNA Pre-Op Diagnosis: diarrhea and [...] encounter of 03/19/20 ECG 12 lead Narrative [facility] Test Date: 2020-03-19 Pat Name: RADHA ALLEN Department: Room: EXAM 101 Gender: Female Annealer: : 1945 Requested By: MAHESH NELSON Order Number: [id number] Reading MD: Measurements Intervals Wahoo Rate: 78 P: 53 VT: 137 QRS: [...] Colitis Disposition: Admit Mahesh Nelson MD 03/19/20 3110 * Kaitlynn Amin RN - 03/19/2020 8:35 PM CDT Patient arrived via POV from home with c/o diarrhea, 5-6 loose stools in the past 24 hours, since September. Patient returned home from [facility] and began having diarrhea. Has had stool samples, which werenegative. Patient c/o generalized weakness and family reports that she appears pale. Also, c/o hemorroids. documented in this encounter Plan of Treatment Upcoming Encounters Date Type Department Care Team (Late st Contact Info) Description 09/28/2024 2:30 PM GENERAL SURGEON Appointment [facility] [address] [place] [address] Josué Cook MD [address] [place] [address] Pending Results Name Type Priority Associated Diagnoses Date /Time Blood Bank - Specimen Hold Blood Bank Routine 03/19/2020 8:45 PM CDT documented as of this encounter Goals Goal Patient Goal Type Associated Problems Recent Progress Patient-Stated? Author HOME TO INDEPENDENT LIVING [facility] Vannessa Light RN documented [...] BASIC METABOLIC PANEL (03/30/2020 1:30 PM CDT) [facility] Signature GLUCOSE 144(H) 70 - 99 MG/DL 03/30/2020 1:56 PM CDT [facility] BUN 12 7 - 18 MG/DL 03/30/2020 1:56 PM CDT [facility] CREATININE S/P/B 0.95 0.55 - 1.02 MG/DL 03/30/2020 1:56 PM CDT [facility] SODIUM S/P/B 141 136 - 145 MMOL/L 03/30/2020 1:56 PM T [facility] POTASSIUM S/P/B 3.4(L) 3.5 - 5.1 MMOL/L 03/30/2020 1:56 PM T [facility] CHLORIDE S/P/B 104 100 - 108 MMOL/L 03/30/2020 1:56 PM T [facility] CO2 28.8 21 - 32 MMOL/L 03/30/2020 1:56 PM T [facility] CALCIUM S/P/B 8.9 8.5 - 10.1 MG/DL 03/30/2020 1:56 PM T [facility] ANION GAP 8.2 5 - 15 MMOL/L 03/30/2020 1:56 PM T [facility] BUN CREATININE RATIO 12.6 6 - 26 03/30/2020 1:56 PM T [facility] EGFR NON-AFR. AMER. 58(L) >90 ML/MIN/1.7 3 M2 03/30/2020 1:56 PM [facility] EGFR AFR. AMER. 67(L) >90 ML/MIN/1.7 3 M2 03/30/2020 1:56 PM T [facility] Comment: NOTE: eGFR is not calculated for patients <18 years of age. This is an estimated GFR (CKD EPI) and should not be used for calculating drug doses. 03/30/2020 1:30 PM CDT Pollo Hogue ASSISTANT SECRETARY LABORATORY Final Result [facility] [address] [place] [address], * (ABNORMAL) CBC W/DIFF AUTOMATED (03/30/2020 1:30 PM CDT) WBC 12.7(H) 4.4 - 11.0 x10'3/uL 03/30/2020 1:45 PM CDT [facility] RBC 3.58(L) 4.50 - 5.10 x10'6/uL 03/30/2020 1:45 PM CDT [facility] HGB 9.2(L) 12.3 - 15.3 G/DL 03/30/2020 1:45 PM CDT [facility] HCT 30.1(L) 35.9 - 44.6 % 03/30/2020 1:45 PM CDT [facility] MCV 84.1 80.0 - 96.0 FL 03/30/2020 1:45 PM CDT [facility] MCH 25.7 25.3 - 30.9 PG 03/30/2020 1:45 PM CDT [facility] MCHC 30.6(L) 31.0 - 34.1 G/DL 03/30/2020 1:45 PM CDT [facility] RDW 20.0(H) 12.4 - 15.1 % 03/30/2020 1:45 PM CDT [facility] PLT 372(H) 151 - 353 x10'3/uL 03/30/2020 1:45 PM CDT [facility] MPV 8.6(L) 9.6 - 12.0 FL 03/30/2020 1:45 PM CDT [facility] SEG NEUTROPHILS 88(H) 42 - 72 % 0 1:59 PM CDT [facility] LYMPHOCYTES 9(L) 15.8 - 45.0 % 03/30/2020 1:59 PM CDT [facility] MONOCYTES 3(L) 5.7 - 12.5 % 03/30/2020 1:59 PM CDT [facility] ABS. NEUTROPHILS TOTAL 11.18(H) 1.40 - 6.00 x10'3/uL 03/30/2020 1:59 PM CDT [facility] ABS. LYMPHOCYTES 1.14 0.80 - 4.70 x10'3/uL 03/30/2020 1:59 PM CDT [facility] PLT MORPH. NORMAL 03/30/2020 1:59 PM CDT [facility] RBC MORPHOLOGY SLIGHT 03/30/2020 1:59 PM CDT [facility] Comment:ANISOCYTOSIS WBC MORPHOLOGY NORMAL 03/30/2020 1:59 PM CDT [facility] 03/30/2020 1:30 PM CDT Pollo Hogue APRN LABORATORY Edited Result - Final [facility] [address] [place] [address], [place] [phone] * (ABNORMAL) BASIC METABOLIC PANEL (03/23/2020 6:20 AM CDT) [facility] GLUCOSE 103(H) 70 - 99 MG/DL 03/23/2020 6:55 AM CDT [facility] BUN 3(L) 7 - 18 MG/DL 03/23/2020 6:55 AM T [facility] CREATININE S/P/B 1.07(H) 0.55 - 1.02 MG/DL 03/23/2020 6:55 AM [facility] SODIUM S/P/B 143 136 - 145 MMOL/L 03/23/2020 6:55 AM [facility] POTASSIUM S/P/B 3.7 3.5 - 5.1 MMOL/L 03/23/2020 6:55 AM [facility] CHLORIDE S/P/B 111(H) 100 - 108 MMOL/L 03/23/2020 6:55 AM [facility] CO2 23.4 21 - 32 MMOL/L 03/23/2020 6:55 AM [facility] CALCIUM S/P/B 7.1(L) 8.5 - 10.1 MG/DL 03/23/2020 6:55 AM [facility] ANION GAP 8.6 5 - 15 MMOL/L 03/23/2020 6:55 AM [facility] BUN CREATININE RATIO 2.8(L) 6 - 03/23/2020 6:55 AM [facility] EGFR NON-AFR. AMER. 50(L) >90 ML/MIN/1.7 3 M2 03/23/2020 6:55 AM [facility] EGFR AFR. AMER. 58(L) >90 ML/MIN/1.7 3 M2 03/23/2020 6:55 AM [facility] Comment: NOTE: eGFR is not calculated for patients <18 years of age. This is an estimated GFR (CKD EPI) and should not be used for calculating drug doses. 03/23/2020 6:20 AM CDT Pollo Hogue APRN LABORATORY Final Result [facility] [address] [place] [address], * (ABNORMAL) CBC W/DIFF AUTOMATED (03/23/2020 6:20 AM CDT) WBC 8.6 4.4 - 11.0 x10'3/uL 03/23/2020 6:44 AM CDT [facility] RBC 2.97(L) 4.50 - 5.10 x10'6/uL 03/23/2020 6:44 AM CDT [facility] HGB 7.7(L) 12.3 - 15.3 G/DL 03/23/2020 6:44 AM CDT [facility] HCT 24.1(L) 35.9 - 44.6 % 03/23/2020 6:44 AM CDT [facility] MCV 81.1 80.0 - 96.0 FL 03/23/2020 6:44 AM CDT [facility] MCH 25.9 25.3 - 30.9 PG 03/23/2020 6:44 AM CDT [facility] MCHC 32.0 31.0 - 34.1 G/DL 03/23/2020 6:44 AM CDT [facility] RDW 16.6(H) 12.4 - 15.1 % 03/23/2020 6:44 AM CDT [facility] PLT 342 151 - 353 x10'3/uL 03/23/2020 6:44 AM CDT [facility] MPV 8.4(L) 9.6 - 12.0 FL 03/23/2020 6:44 AM CDT [facility] RBC MORPHOLOGY NORMAL 03/23/2020 6:44 AM CDT [facility] PLT MORPH. NORMAL 03/23/2020 6:44 AM CDT [facility] WBC MORPHOLOGY NORMAL 03/23/2020 6:44 AM CDT [facility] LYMPHOCYTES % 27.2 15.8 - 45.0 % 03/23/2020 6:44 AM CDT [facility] NEUTROPHILS % 56.9 42.1 - 71.9 % 03/23/2020 6:44 AM CDT [facility] MONOCYTES % 11.2 5.7 - 12.5 % 03/23/2020 6:44 AM CDT [facility] EOSINOPHILS 0.2 0.0 - 5.6 % 03/23/2020 6:44 AM CDT [facility] BASOPHILS 0.2 0.0 - 1.3 % 03/23/2020 6:44 AM CDT [facility] ABS. NEUTROPHILS TOTAL 4.91 1.40 - 6.00 x10'3/uL 03/23/2020 6:44 AM CDT [facility] IMMATURE GRANS % 4.3(H) 0.0 - 0.5 % 03/23/2020 6:44 AM CDT [facility] ABS. LYMPHOCYTES 2.35 0.80 - 4.70 x10'3/uL 03/23/2020 6:44 AM T [facility] 03/23/2020 6:20 AM CDT us Pollo Hogue ASSISTANT SECRETARY LABORATORY Final Result [facility] [address] [place] [address], * (ABNORMAL) POCT glucose (03/22/2020 7:56 PM CDT) [facility] Signature GLUCOSE POC 175(H) 70 - 110 mg/dL 03/22/2020 9:10 PM CDT [facility] 03/22/2020 7:56 PM CDT Pollo Hogue APRN POCT ORDERABLES - DEVICE Final Result Performing Organization Address [facility] Co de Phone Number [facility] [address] [place] [address], [place] [phone] * CULTURE, BACTERIA, BLOOD (03/22/2020 11:57 AM CDT) SPEC DESCRIPTION BLOOD 03/22/2020 9:30 AM CDT [facility] SPECIAL REQUESTS NO SPECIAL REQUEST 03/22/2020 9:30 AM CDT [facility] CULTURE RESULT NO GROWTH 5 DAYS 03/27/2020 2:05 PM CDT [facility] BLOOD SPECIMEN OBTAINED FOR BLOOD CULTURE / Unknown 03/22/2020 11:57 AM CDT 03/22/2020 12:07 PM CDT Pollo Hogue APRN MICROBIOLOGY - GENERAL ORDERAB LES Final Result Performing Organization Address City/[facility]/ZIP Co de Phone Number [facility] [address] [place] [address], [place] [phone] [facility] [address] [place] [address], [place] [phone] * CULTURE, BACTERIA, BLOOD (03/22/2020 11:57 AM CDT) SPEC DESCRIPTION BLOOD 03/22/2020 9:30 AM CDT [facility] SPECIAL REQUESTS NO SPECIAL REQUEST 03/22/2020 9:30 AM CDT [facility] CULTURE RESULT NO GROWTH 5 DAYS 03/27/2020 2:05 PM CDT [facility] BLOOD SPECIMEN OBTAINED FOR BLOOD CULTURE / Unknown 03/22/2020 11:57 AM CDT 03/22/2020 12:07 PM CDT Pollo Farmer Kristenmichaelle ASSISTANT SECRETARY MICROBIOLOGY - GENERAL ORDERAB LES Final Result [facility] [address] [place] [address], [place] [phone] [facility] [address] [place] [address], [place] [phone] * Pathology (03/22/2020 10:20 AM CDT) Tissue specimen (specimen) COLON STRUCTURE / Unknown 03/22/2020 10:20 AM CDT Tissue specimen (specimen) COLON STRUCTURE / Unknown 03/22/2020 10:22 AM CDT Tissue specimen (specimen) SPECIMEN FROM RECTUM / Unknown 03/22/2020 10:24 AM CDT Narrative [facility] - 03/23/2020 5:19 PM CDT [facility] Date of Service: ??03/22/2020 Preoperative Diagnosis: ??Diarrhea [...] submitted entirely in block C. CPT Code: ??78432 x3 D: ??03/22/2020 02:17 PM #[id number] T: ??03/22/2020 04:47 PM /NTS A copy of this report has been sent to: [facility] [id number] PATHOLOGIC DIAGNOSIS: Right colon, colonoscopy with biopsies: [...] chronic ulcerative colitis. D: ??03/23/2020 04:21 PM #[id number] T: ??03/23/2020 05:09 PM /NTS Indigo Parsons MD PATHOLOGY/CYTOLOGY ORDERABLES Fi nal Result [facility] [address] [place] [address], * (ABNORMAL) BASIC METABOLIC PANEL (03/22/2020 6:55 AM CDT) GLUCOSE 88 70 - 99 MG/DL 03/22/2020 8:34 AM CDT [facility] BUN 5(L) 7 - 18 MG/DL 03/22/2020 8:34 AM CDT [facility] CREATININE S/P/B 0.82 0.55 - 1.02 MG/DL 03/22/2020 8:34 AM CDT [facility] SODIUM S/P/B 144 136 - 145 MMOL/L 03/22/2020 8:34 AM CDT [facility] POTASSIUM S/P/B 4.1 3.5 - 5.1 MMOL/L 03/22/2020 8:34 AM CDT [facility] CHLORIDE S/P/B 112(H) 100 - 108 MMOL/L 03/22/2020 8:34 AM CDT [facility] CO2 24.4 21 - 32 MMOL/L 03/22/2020 8:34 AM CDT [facility] CALCIUM S/P/B 7.0(L) 8.5 - 10.1 MG/DL 03/22/2020 8:34 AM CDT [facility] ANION GAP 7.6 5 - 15 MMOL/L 03/22/2020 8:34 AM CDT [facility] BUN CREATININE RATIO 6.1 6 - 03/22/2020 8:34 AM CDT [facility] EGFR NON-AFR. AMER. 70(L) >90 ML/MIN/1.7 3 M2 03/22/2020 8:34 AM CDT [facility] EGFR AFR. AMER. 81(L) >90 ML/MIN/1.7 3 M2 03/22/2020 8:34 AM T [facility] Comment: NOTE: eGFR is not calculated for patients <18 years of age. This is an estimated GFR (CKD EPI) and should not be used for calculating drug doses. 03/22/2020 6:55 AM CDT [facility] John ASSISTANT SECRETARY LABORATORY Final Result [facility] [address] [place] [address], * (ABNORMAL) CBC W/DIFF AUTOMATED (03/22/2020 6:55 AM CDT) WBC 6.6 4.4 - 11.0 x10'3/uL 03/22/2020 7:14 AM CDT [facility] RBC 3.12(L) 4.50 - 5.10 x10'6/uL 03/22/2020 7:14 AM CDT [facility] HGB 7.8(L) 12.3 - 15.3 G/DL 03/22/2020 7:14 AM CDT [facility] HCT 25.2(L) 35.9 - 44.6 % 03/22/2020 7:14 AM CDT [facility] MCV 80.8 80.0 - 96.0 FL 03/22/2020 7:14 AM T [facility] MCH 25.0(L) 25.3 - 30.9 PG 03/22/2020 7:14 AM CDT [facility] MCHC 31.0 31.0 - 34.1 G/DL 03/22/2020 7:14 AM [facility] RDW 16.5(H) 12.4 - 15.1 % 03/22/2020 7:14 AM [facility] PLT 321 151 - 353 x10'3/uL 03/22/2020 7:14 AM [facility] MPV 8.0(L) 9.6 - 12.0 FL 03/22/2020 7:14 AM [facility] RBC MORPHOLOGY NORMAL 03/22/2020 7:14 AM [facility] PLT MORPH. NORMAL 03/22/2020 7:14 AM T [facility] WBC MORPHOLOGY NORMAL 03/22/2020 7:14 AM T [facility] LYMPHOCYTES % 29.5 15.8 - 45.0 % 03/22/2020 7:14 AM T [facility] NEUTROPHILS % 53.5 42.1 - 71.9 % 03/22/2020 7:14 AM T [facility] MONOCYTES % 11.0 5.7 - 12.5 % 03/22/2020 7:14 AM T [facility] EOSINOPHILS 1.7 0.0 - 5.6 % 03/22/2020 7:14 AM CDT [facility] BASOPHILS 0.5 0.0 - 1.3 % 03/22/2020 7:14 AM CDT [facility] ABS. NEUTROPHILS TOTAL 3.54 1.40 - 6.00 x10'3/uL 03/22/2020 7:14 AM CDT [facility] IMMATURE GRANS % 3.8(H) 0.0 - 0.5 % 03/22/2020 7:14 AM CDT [facility] ABS. LYMPHOCYTES 1.95 0.80 - 4.70 x10'3/uL 03/22/2020 7:14 AM CDT [facility] 03/22/2020 6:55 AM CDT Pollo Hogue APRN LABORATORY Final Result [facility] [address] [place] [address], [place] [phone] * (ABNORMAL) IRON SAT PANEL (IRON,IBC,%SAT) (03/22/2020 6:55 AM CDT) IRON 33(L) 50 - 170 MCG/DL 03/22/2020 7:26 AM CDT [facility] IRON BINDING CAPACITY 133(L) 250 - 450 MCG/DL 03/22/2020 7:26 AM CDT [facility] IRON SATURATION 25 20 - 55 % 0 7:26 AM CDT [facility] 03/22/2020 6:55 AM CDT Durga Parekh MD LABORATORY Final Result Performing Organization Address City/[facility]/ZIP Co de Phone Number [facility] [address] [place] [address], [place] [phone] * (ABNORMAL) VITAMIN B12 / FOLATE (03/22/2020 6:55 AM CDT) VITAMIN B12 S/P/B 4,687(H) 193 - 986 PG/ML 03/22/2020 8:34 AM CDT [facility] FOLATE 6.0(L) 8.6 - 58.9 NG/ML 03/22/2020 8:34 AM CDT [facility] 03/22/2020 6:55 AM CDT us Durga Parekh MD LABORATORY Final Result Performing Organization Address [facility]/ZIP Co de Phone Number [facility] [address] [place] [address], [place] [phone] * POCT glucose (03/22/2020 5:59 AM CDT) GLUCOSE POC 100 70 - 110 mg/dL 03/22/2020 6:11 AM CDT [facility] 03/22/2020 5:59 AM CDT Pollo Hogue APRN POCT ORDERABLES - DEVICE Final Result Performing Organization Address [facility]/ZIP Co de Phone Number [facility] [address] [place] [address], [place] [phone] * (ABNORMAL) POCT glucose (03/21/2020 8:25 PM CDT) GLUCOSE POC 137(H) 70 - 110 mg/dL 03/21/2020 8:55 PM CDT [facility] 03/21/2020 8:25 PM CDT Pollo Hogue ASSISTANT SECRETARY POCT ORDERABLES - DEVICE Final Result Performing Organization Address City/[facility]/ZIP Co de Phone Number [facility] [address] [place] [address], [place] [phone] * POCT glucose (03/21/2020 4:13 PM CDT) GLUCOSE POC 100 70 - 110 mg/dL 03/21/2020 5:30 PM CDT [facility] 03/21/2020 4:13 PM CDT Pollo Farmer John ASSISTANT SECRETARY POCT ORDERABLES - DEVICE Final Result [facility] [address] [place] [address], [place] [phone] * (ABNORMAL) BASIC METABOLIC PANEL (03/21/2020 12:09 PM CDT) GLUCOSE 100(H) 70 - 99 MG/DL 03/21/2020 12:42 PM CDT [facility] BUN 9 7 - 18 MG/DL 03/21/2020 12:42 PM CDT [facility] CREATININE S/P/B 0.84 0.55 - 1.02 MG/DL 03/21/2020 12:42 PM CDT [facility] SODIUM S/P/B 141 136 - 145 MMOL/L 03/21/2020 12:42 PM CDT [facility] POTASSIUM S/P/B 4.5 3.5 - 5.1 MMOL/L 03/21/2020 12:42 PM CDT [facility] CHLORIDE S/P/B 111(H) 100 - 108 MMOL/L 03/21/2020 12:42 PM CDT [facility] CO2 19.7(L) 21 - 32 MMOL/L 03/21/2020 12:42 PM CDT [facility] CALCIUM S/P/B 7.2(L) 8.5 - 10.1 MG/DL 03/21/2020 12:42 PM CDT [facility] ANION GAP 10.3 5 - 15 MMOL/L 03/21/2020 12:42 PM CDT [facility] BUN CREATININE RATIO 10.7 6 - 26 03/21/2020 12:42 PM CDT [facility] EGFR NON-AFR. AMER. 68(L) >90 ML/MIN/1.7 3 M2 03/21/2020 12:42 PM CDT [facility] EGFR AFR. AMER. 78(L) >90 ML/MIN/1.7 3 M2 03/21/2020 12:42 PM CDT [facility] Comment: NOTE: eGFR is not calculated for patients <18 years of age. This is an estimated GFR (CKD EPI) and should not be used for calculating drug doses. 03/21/2020 12:0 9 PM CDT [facility] John ASSISTANT SECRETARY LABORATORY Final Result [facility] [address] [place] [address], * (ABNORMAL) CBC W/DIFF AUTOMATED (03/21/2020 12:09 PM CDT) WBC 7.3 4.4 - 11.0 x10'3/uL 03/21/2020 12:22 PM CDT [facility] RBC 3.22(L) 4.50 - 5.10 x10'6/uL 03/21/2020 12:22 PM CDT [facility] HGB 8.2(L) 12.3 - 15.3 G/DL 03/21/2020 12:22 PM CDT [facility] HCT 26.6(L) 35.9 - 44.6 % 03/21/2020 12:22 PM CDT [facility] MCV 82.6 80.0 - 96.0 FL 03/21/2020 12:22 PM T [facility] MCH 25.5 25.3 - 30.9 PG 03/21/2020 12:22 PM [facility] MCHC 30.8(L) 31.0 - 34.1 G/DL 03/21/2020 12:22 PM T [facility] RDW 16.7(H) 12.4 - 15.1 % 03/21/2020 12:22 PM [facility] PLT 345 151 - 353 x10'3/uL 03/21/2020 12:22 PM [facility] MPV 8.6(L) 9.6 - 12.0 FL 03/21/2020 12:22 PM [facility] RBC MORPHOLOGY NORMAL 03/21/2020 12:22 PM [facility] PLT MORPH. NORMAL 03/21/2020 12:22 PM T [facility] WBC MORPHOLOGY NORMAL 03/21/2020 12:22 PM [facility] LYMPHOCYTES % 23.1 15.8 - 45.0 % 03/21/2020 12:22 PM [facility] NEUTROPHILS % 60.5 42.1 - 71.9 % 03/21/2020 12:22 PM T [facility] MONOCYTES % 11.5 5.7 - 12.5 % 03/21/2020 12:22 PM T [facility] EOSINOPHILS 1.5 0.0 - 5.6 % 03/21/2020 12:22 PM [facility] BASOPHILS 0.5 0.0 - 1.3 % 03/21/2020 12:22 PM T [facility] ABS. NEUTROPHILS TOTAL 4.40 1.40 - 6.00 x10'3/uL 03/21/2020 12:22 PM CDT [facility] IMMATURE GRANS % 2.9(H) 0.0 - 0.5 % 03/21/2020 12:22 PM CDT [facility] ABS. LYMPHOCYTES 1.68 0.80 - 4.70 x10'3/uL 03/21/2020 12:22 PM CDT [facility] 03/21/2020 12:0 9 PM CDT [place] ASSISTANT SECRETARY LABORATORY Final Result [facility] [address] [place] [address], [place] [phone] * US RETROPERITONEAL COMP (03/21/2020 10:53 AM [...] COMPARISON: CT 03/19/2020 TECHNIQUE: Examination performed by jewelry polisher using grayscale with color flow and spectral Doppler. Selected images submitted for interpretation. Worksheet completed. Procedure Note Driss Garcia MD - 03/21/2020 IMAGING STUDIES:US RETROPERITONEAL COMP DATE: 03/21/2020 9:33 AM INDICATION: left renal lesion noted on CT COMPARISON: CT 03/19/2020 TECHNIQUE: Examination performed by jewelry polisher using grayscalewith color flow and spectral Doppler. [...] Driss Garcia, 03/21/2020 12:23 PM Cara Alvarado ASSISTANT SECRETARY ULTRASOUND Final Re sult * POCT glucose (03/21/2020 6:07 AM CDT) GLUCOSE POC 107 70 - 110 mg/dL 03/21/2020 6:12 AM CDT [facility] 03/21/2020 6:07 AM CDT Durga Parekh MD POCT ORDERABLES - DEVICE Final Result [facility] [address] [place] [address], [place] [phone] * O&P CONC&SMEAR TO REF LAB (03/20/2020 12:25 PM CDT) SPECIMEN SOURCE STOOL 0 12:54 PM CDT [facility] O & P EXAMINATION (STOOL) REPORT 03/29/2020 8:32 PM CDT [facility] Comment: Ova and Parasites, Concentrate and Permanent Smear Examination for Ova and Parasites SOURCE : STOOL Result/Comment: NO OVA AND PARASITES SEEN. Reference Range: ??No Ova and Parasites seen Routine Ova and Parasite Exam may not detect some parasites that occasionally cause diarrheal illness. Test code(s) 55923D[44662](Cryptosporidium Ag, DFA) and/or 79350K[35383] (Cyclospora and Isospora Exam) may be ordered to detect these parasites. One negative sample does not necessarily rule out the presence of a parasitic infection. Assay performed by wet mount after concentration. Parasite Exam, Trichrome Stain SOURCE : STOOL Result/Comment: NO OVA AND PARASITES SEEN. Routine Ova and Parasite Exam may not detect some parasites that occasionally cause diarrheal illness. Test code(s) 22823E[73806](Cryptosporidium Ag, DFA) and/or 36624Q[72626] (Cyclospora and Isospora Exam) may be ordered to detect these parasites. One negative sample does not necessarily rule out the presence of a parasitic infection. For additional information, please refer to https://education.Hostmonster/faq/ITA021 (This link is being provided for informational/ educational purposes only.) Test Performed by [facility], [address] [place], [place] Gamal Gao M.D., Ph.D., Director of Laboratories , [place] [id number] STOOL SPECIMEN / Unknown 03/20/2020 12:25 PM CDT Durga Parekh MD MICROBIOLOGY - GENERAL ORDERAB LES Final Result [facility] [id number] [place] [address], [place] [phone] [facility] [address] [place] [address], [place] [phone] * CLOSTRIDIUM DIFFICILE (03/20/2020 11:25 AM CDT) C DIFFICILE TOXIN (STOOL) NEGATIVE NEGATIVE 03/20/2020 2:14 PM CDT [facility] STOOL SPECIMEN / Unknown 03/20/2020 11:25 AM CDT Durga Parekh MD BODY FLUIDS AND STOOLS ORDERAB LES Final Result [facility] [address] [place] [address], [place] [phone] * (ABNORMAL) LIPID PANEL (03/20/2020 5:30 AM CDT) Pathologist [facility] CHOLESTEROL 51 <200.0 MG/DL 03/20/2020 6:40 AM CDT [facility] TRIGLYCERIDES 47 <150 MG/DL 03/20/2020 6:40 AM T [facility] HDL 36(L) >40.0 MG/DL 03/20/2020 6:40 AM T [facility] LDL (CALCULATED) 6 <100 MG/DL 03/20/20 20 6:40 AM T [facility] NON HDL CHOLESTEROL 15 <130 MG/DL 03/20 6:40 AM T [facility] CHOL/HDL RATIO 1.4 0.0 - 4.5 03/20/2020 6:40 AM T [facility] VLDL CALCULATION 9 5 - 55 MG/DL 03/20/2020 6:40 AM CDT [facility] LIPID INTERPRETATION 03/20/2020 6:40 AM T [facility] Comment: [facility] REPORT RECOMMENDATIONS: [...] >=160 ?>=130 03/20/2020 5:30 AM CDT us aMdison Aaron MD LABORATORY Final Result [facility] () [facility] [address] [place] [phone], * (ABNORMAL) MAGNESIUM (03/20/2020 5:30 AM CDT) Pathologist [facility] MAGNESIUM 1.6(L) 1.8 - 2.4 MG/DL 03/20/2020 6:38 AM CDT [facility] 03/20/2020 5:30 AM CDT Madison Aaron MD LABORATORY Final Result [facility] [address] [place] [address], * (ABNORMAL) BASIC METABOLIC PANEL (03/20/2020 5:30 AM CDT) Pathologist [facility] GLUCOSE 74 70 - 99 MG/DL 03/20/2020 6:38 AM CDT [facility] BUN 24(H) 7 - 18 MG/DL 03/20/2020 6:38 AM CDT [facility] CREATININE S/P/B 1.59(H) 0.55 - 1.02 MG/DL 03/20/2020 6:38 AM CDT [facility] SODIUM S/P/B 140 136 - 145 MMOL/L 03/20/2020 6:38 AM CDT [facility] POTASSIUM S/P/B 5.0 3.5 - 5.1 MMOL/L 03/20/2020 6:38 AM CDT [facility] CHLORIDE S/P/B 110(H) 100 - 108 MMOL/L 03/20/2020 6:38 AM CDT [facility] CO2 20.2(L) 21 - 32 MMOL/L 03/20/2020 6:38 AM CDT [facility] CALCIUM S/P/B 7.4(L) 8.5 - 10.1 MG/DL 03/20/2020 6:38 AM CDT [facility] ANION GAP 9.8 5 - 15 MMOL/L 03/20/2020 6:38 AM CDT [facility] BUN CREATININE RATIO 15.1 6 - 26 03/20/2020 6:38 AM CDT [facility] EGFR NON-AFR. AMER. 31(L) >90 ML/MIN/1.7 3 M2 03/20/2020 6:38 AM CDT [facility] EGFR AFR. AMER. 36(L) >90 ML/MIN/1.7 3 M2 03/20/2020 6:38 AM T [facility] Comment: NOTE: eGFR is not calculated for patients <18 years of age. This is an estimated GFR (CKD EPI) and should not be used for calculating drug doses. 03/20/2020 5:30 AM CDT us Madison Aaron MD LABORATORY Final Result [facility] [address] [place] [address], * (ABNORMAL) CBC W/DIFF AUTOMATED (03/20/2020 5:30 AM CDT) WBC 11.2(H) 4.4 - 11.0 x10'3/uL 03/20/2020 6:30 AM CDT [facility] RBC 3.10(L) 4.50 - 5.10 x10'6/uL 03/20/2020 6:30 AM CDT [facility] HGB 7.8(L) 12.3 - 15.3 G/DL 03/20/2020 6:30 AM T [facility] HCT 25.6(L) 35.9 - 44.6 % 03/20/2020 6:30 AM T [facility] MCV 82.6 80.0 - 96.0 FL 03/20/2020 6:30 AM CDT [facility] MCH 25.2(L) 25.3 - 30.9 PG 03/20/2020 6:30 AM T [facility] MCHC 30.5(L) 31.0 - 34.1 G/DL 03/20/2020 6:30 AM T [facility] RDW 16.1(H) 12.4 - 15.1 % 03/20/2020 6:30 AM T [facility] PLT 336 151 - 353 x10'3/uL 03/20/2020 6:30 AM [facility] MPV 9.0(L) 9.6 - 12.0 FL 03/20/2020 6:30 AM [facility] RBC MORPHOLOGY NORMAL 03/20/2020 6:30 AM [facility] PLT MORPH. NORMAL 03/20/2020 6:30 AM [facility] WBC MORPHOLOGY NORMAL 03/20/2020 6:30 AM [facility] LYMPHOCYTES % 15.5(L) 15.8 - 45.0 % 03/20/2020 6:30 AM [facility] NEUTROPHILS % 70.7 42.1 - 71.9 % 03/20/2020 6:30 AM T [facility] MONOCYTES % 11.5 5.7 - 12.5 % 03/20/2020 6:30 AM [facility] EOSINOPHILS 0.8 0.0 - 5.6 % 03/20/2020 6:30 AM [facility] BASOPHILS 0.3 0.0 - 1.3 % 03/20/2020 6:30 AM [facility] ABS. NEUTROPHILS TOTAL 7.93(H) 1.40 - 6.00 x10'3/uL 03/20/2020 6:30 AM CDT [facility] IMMATURE GRANS % 1.2(H) 0.0 - 0.5 % 03/20/2020 6:30 AM CDT [facility] ABS. LYMPHOCYTES 1.74 0.80 - 4.70 x10'3/uL 03/20/2020 6:30 AM CDT [facility] 03/20/2020 5:30 AM CDT Madison Aaron MD LABORATORY Final Result Performing Organization Address City/[facility]/ZIP Co de Phone Number [facility] [address] [place] [address], [place] [phone] * CULTURE, BACTERIA, BLOOD (03/20/2020 5:21 AM CDT) SPEC DESCRIPTION BLOOD 03/19/2020 11:05 PM CDT [facility] SPECIAL REQUESTS NO SPECIAL REQUEST 03/19/2020 11:05 PM CDT [facility] CULTURE RESULT NO GROWTH 5 DAYS 2020 3:42 PM CDT [facility] BLOOD SPECIMEN OBTAINED FOR BLOOD CULTURE / Unknown 03/20/2020 5:21 AM CDT 03/20/2020 5:22 AM CDT Mahesh Nelson MD MICROBIOLOGY - GENERAL MIA LEARY Final Result [facility] [address] [place] [address], [place] [phone] [facility] [address] [place] [address], [place] [phone] * (ABNORMAL) CULTURE, BACTERIA, BLOOD (03/20/2020 5:21 AM CDT) SPEC DESCRIPTION BLOOD 03/19/2020 11:05 PM CDT [facility] SPECIAL REQUESTS NO SPECIAL REQUEST 03/19/2020 11:05 PM CDT [facility] GRAM STAIN RESULT MODERATE GRAM POSITIVE COCCI RESEMBLING STAPHYLOCOCCUS SPECIES 03/22/2020 2:54 AM CDT [facility] CULTURE RESULT GROWTH OF STAPH. SPECIES NOT STAPH. AUREUS SUSCEPTIBILTY NOT ROUTINELY PERFORMED. SAVING ISOLATE FOR 5 DAYS. CONTACT MICROBIOLOGY DEPARTMENT IF FURTHER WORKUP IS INDICATED. (AA) 03/23/2020 9:47 AM CDT [facility] CULTURE RESULT CALLED TO AND READ BACK BY CHIKA BORREGO ON 03/22/20 AT 0250 BY [facility] 03/23/2020 9:47 AM CDT [facility] BLOOD SPECIMEN OBTAINED FOR BLOOD CULTURE / Unknown 03/20/2020 5:21 AM CDT 03/20/2020 5:22 AM CDT Mahesh Nelson MD MICROBIOLOGY - GENERAL MIA LEARY Final Result [facility] [address] [place] [address], [facility] [address] [place] [address], * ECG 12 lead (03/19/2020 11:20 PM CDT) 03/19/2020 11:2 0 PM CDT Narrative [facility] ([facility] RAD - 03/20/2020 7:18 AM CDT ?[facility] ? Test Date: ?2020-03-19 Pat Name: ? RADHA ALLEN ? Department: ? Room: ? 120 Gender: ? Female ? [place]: ?? : ?1945 ? Requested By: MAHESH BRAHMAVAR Order Number: [id number] ? Reading MD: ?? Keven Gunter ? Measurements Intervals ?[place] ? Rate: ? 78 ? P: ?53 VT: ? 137 ?QRS: ?22 QRSD: ? 87 ? T: ?12 QT: ? 355 ? QTc: ?405 ? Interpretive Statements SINUS RHYTHM LOW QRS VOLTAGE IN PRECORDIAL LEADS ?? No previous ECG available for comparison Procedure Note Keven Gunter MD - 03/20/2020 [facility] [place] [facility] Test Date: 2020-03-19 Pat Name: RADHA ALLEN Department: Room: 120 Gender: Female [place]: : 1945 Requested By: MAHESH NELSON Order Number: [id number] Reading MD: Keven Gunter Measurements Intervals [place] Rate: 78 P: 53 VT: 137 QRS: 22 QRSD: 87 T: 12 QT: 355 QTc: 405 Interpretive Statements SINUS RHYTHM LOW QRS VOLTAGE IN PRECORDIAL LEADS No previous ECG available for comparison us Mahesh Nelson MD ECG ORDERABLES Final Resul t [facility] RAD * CT ABD+PEL WO [...] - 2.0 MMOL/L 03/19/2020 9:24 PM CDT [facility] 03/19/2020 8:45 PM CDT us Mahesh Nelson MD LABORATORY Final Resul t Performing Organization Address [facility] Co de Phone Number [facility] [address] [place] [address], [place] [phone] * LIPASE (03/19/2020 8:45 PM CDT) LIPASE 74 73 - 393 UNITS/L 03/19/2020 9:19 PM CDT [facility] 03/19/2020 8:45 PM CDT us Mahesh Nelson MD LABORATORY Final Resul t Performing Organization Address [facility]/ZIP Co de Phone Number [facility] [address] [place] [address], [place] [phone] * (ABNORMAL) COMPREHENSIVE METABOLIC PANEL (03/19/2020 8:45 PM CDT) GLUCOSE 107(H) 70 - 99 MG/DL 03/19/2020 9:19 PM CDT [facility] BUN 28(H) 7 - 18 MG/DL 03/19/2020 9:19 PM CDT [facility] CREATININE S/P/B 2.27(H) 0.55 - 1.02 MG/DL 03/19/2020 9:19 PM [facility] SODIUM S/P/B 135(L) 136 - 145 MMOL/L 03/19/2020 9:19 PM [facility] POTASSIUM S/P/B 5.3(H) 3.5 - 5.1 MMOL/L 03/19/2020 9:19 PM [facility] CHLORIDE S/P/B 102 100 - 108 MMOL/L 03/19/2020 9:19 PM [facility] CO2 20.2(L) 21 - 32 MMOL/L 03/19/2020 9:19 PM [facility] CALCIUM S/P/B 8.4(L) 8.5 - 10.1 MG/DL 03/19/2020 9:19 PM [facility] BILIRUBIN TOTAL S/P/B 0.4 0.2 - 1.2 MG/DL 03/19/2020 9:19 PM [facility] TOTAL PROTEIN S/P/B 7.4 6.4 - 8.2 G/DL 03/19/2020 9:19 PM [facility] ALBUMIN S/P/B 2.5(L) 3.4 - 5.0 G/DL 03/19/2020 9:19 PM [facility] AST 21 15 - 37 U/L 03/19/2020 9:19 PM [facility] ALT 16 14 - 55 U/L 03/19/2020 9:19 PM [facility] ALKALINE PHOSPHATASE S/P/B 103 50 - 136 U/L 03/19/2020 9:19 PM [facility] ANION GAP 12.8 5 - 15 MMOL/L 03/19/2020 9:19 PM [facility] BUN CREATININE RATIO 12.3 6 - 26 03/19/2020 9:19 PM CDT [facility] A/G RATIO 0.5(L) 1.0 - 2.0 RATIO 03/19/2020 9:19 PM CDT [facility] EGFR NON-AFR. AMER. 20(L) >90 ML/MIN/1.7 3 M2 03/19/2020 9:19 PM CDT [facility] EGFR AFR. AMER. 24(L) >90 ML/MIN/1.7 3 M2 03/19/2020 9:19 PM CDT [facility] Comment: NOTE: eGFR is not calculated for patients <18 years of age. This is an estimated GFR (CKD EPI) and should not be used for calculating drug doses. 03/19/2020 8:45 PM CDT us Mahesh Nelson MD LABORATORY Final Resul t [facility] [address] [place] [address], [place] [phone] * (ABNORMAL) CBC W/DIFF AUTOMATED (03/19/2020 8:45 PM CDT) WBC 18.1(H) 4.4 - 11.0 x10'3/uL 03/19/2020 9:03 PM CDT [facility] RBC 3.78(L) 4.50 - 5.10 x10'6/uL 03/19/2020 9:03 PM CDT [facility] HGB 9.5(L) 12.3 - 15.3 G/DL 03/19/2020 9:03 PM T [facility] HCT 31.0(L) 35.9 - 44.6 % 03/19/2020 9:03 PM CDT [facility] MCV 82.0 80.0 - 96.0 FL 03/19/2020 9:03 PM CDT [facility] MCH 25.1(L) 25.3 - 30.9 PG 03/19/2020 9:03 PM T [facility] MCHC 30.6(L) 31.0 - 34.1 G/DL 03/19/2020 9:03 PM T [facility] RDW 16.0(H) 12.4 - 15.1 % 03/19/2020 9:03 PM T [facility] PLT 476(H) 151 - 353 x10'3/uL 03/19/2020 9:03 PM T [facility] MPV 8.7(L) 9.6 - 12.0 FL 03/19/2020 9:03 PM T [facility] SEG NEUTROPHILS 76(H) 42 - 72 % 0 9:20 PM T [facility] BANDS 2 % 03/19/2020 9:20 PM CDT [facility] LYMPHOCYTES 13(L) 15.8 - 45.0 % 03/19/2020 9:20 PM T [facility] MONOCYTES 9 5.7 - 12.5 % 03/19/2020 9:20 PM T [facility] ABS. NEUTROPHILS TOTAL 14.12(H) 1.40 - 6.00 x10'3/uL 03/19/2020 9:20 PM T [facility] ABS. LYMPHOCYTES 2.35 0.80 - 4.70 x10'3/uL 03/19/2020 9:20 PM T [facility] PLT MORPH. NORMAL 03/19/2020 9:20 PM CDT [facility] RBC MORPHOLOGY NORMAL 03/19/2020 9:20 PM CDT [facility] WBC MORPHOLOGY NORMAL 03/19/2020 9:20 PM CDT [facility] 03/19/2020 8:45 PM CDT us Mahesh Nelson MD LABORATORY Final Resul t [facility] [address] [place] [address], [place] [phone] documented in this encounter Visit Diagnoses Not [...] entered.) documented in this encounter Care Teams Strategic Planning Specialist Relationship Specialty Start Date End Date Jared Leyva MD PCP - General 08/28/11 07/16/22 documented as of this encounter
--- OUTSIDE RECORDS SUMMARY | 2024-08-18 10:41 | XMS_ITS | Encounter Summary ---
Author Organization [facility] Address [address] [place] [address] [place] [address] Care Team Providers Care Health Officer Name Role Phone Jared Abrams MD Primary Care Provider [phone] Encounter Details Date Type Department Care Team (Latest Contact Info) Description 07/09/2012 Abstract [facility] Social History Tobacco Use Types [...] st Contact Info) Description 09/28/2024 2:30 PM APPLIED COMPUTER SCIENCE PROFESSOR Appointment [facility] Day [facility] [address] [place] [address] Josué Cook MD [address] [address] documented as of this encounter Visit Diagnoses Not on filedocumented in this encounter Care Teams Health Officer Relationship Specialty Start Date End Date Jared Abrams MD PCP - General 08/28/11 07/16/22 documented as of this encounter
--- OUTSIDE RECORDS SUMMARY | 2024-08-18 10:41 | XMS_ITS | Encounter Summary ---
Author Organization [facility] Address [address] [place] [address] [place] [address] Care Team Providers Care Diaphragm Builder Name Role Phone Jared Abrams MD Primary Care Provider [phone] Encounter Details Date Type Department Care Team (Latest Contact Info) Description 10/04/2013 Abstract [facility] [place] [address] [address] [address] Social History Tobacco Use Types Packs/Day Years [...] st Contact Info) Description 09/28/2024 2:30 PM TRAINING PERSONNEL SUPERVISOR Appointment [facility] [address] [place] [address] Josué Cook MD [address] [address] documented as of this encounter Visit Diagnoses Not on filedocumented in this encounter Care Teams Diaphragm Builder Relationship Specialty Start Date End Date Jared Abrams MD PCP - General 08/28/11 07/16/22 documented as of this encounter
--- OUTSIDE RECORDS SUMMARY | 2024-08-18 10:41 | XMS_ITS | Encounter Summary ---
Author Organization [facility] Address [address] [facility] [place] [address] [place] [address] Care Team Providers Care Ore Charger Name Role Phone Jared Abrams MD Primary Care Provider [phone] Encounter Details Date Type Department Care Team (Late st Contact Info) Description 01/10/2011 Abstract [facility] [address] [place] [address] David Foy, FARM OPERATOR [address] [place], [place] [id number] Social History Tobacco Use Types Packs/Day Years [...] st Contact Info) Description 09/28/2024 2:30 PM DISTRIBUTION A CLASS LINEMAN Appointment [facility] [address] [place] [address] Josué Cook MD [address] [address] documented as of this encounter Visit Diagnoses Diagnosis Essential hypertension Unspecified essential hypertension documented in this encounter Care Teams Ore Charger Relationship Specialty Start Date End Date Jared Abrams MD PCP - General 08/28/11 07/16/22 documented as of this encounter
--- OUTSIDE RECORDS SUMMARY | 2024-08-18 10:41 | XMS_ITS | Encounter Summary ---
Author Organization [facility] Address [address] [facility] [place] [address] [place] [address] Care Team Providers Care Firebrick And Refractory Tile Repairer Name Role Phone Jared Abrams MD Primary Care Provider [phone] Encounter Details Date Type Department Care Team [...] st Contact Info) Description 09/28/2024 2:30 PM AIRCRAFT MAINTENANCE TECHNICIAN Appointment [facility] [address] [place] [address] Josué Cook MD [address] [facility] [address] [place] [address] documented as of this encounter Visit Diagnoses Not on filedocumented in this encounter Care Teams Firebrick And Refractory Tile Repairer Relationship Specialty Start Date End Date Jared Abrams MD PCP - General 08/28/11 07/16/22 documented as of this encounter
--- OUTSIDE RECORDS SUMMARY | 2024-08-18 10:41 | XMS_ITS | Encounter Summary ---
Author Organization [facility] Address [address] [place] [address] [place] [address] Care Team Providers Care Wash House Worker Name Role Phone Jared Abrams MD Primary Care Provider [phone] Encounter Details Date Type Department Care Team (Late st Contact Info) Description 04/08/2012 Abstract [facility] [address] [place] [address] Jared Abrams MD [address] [place] [address] Social History Tobacco Use Types Packs/Day Years [...] st Contact Info) Description 09/28/2024 2:30 PM IT PROJECT COORDINATOR Appointment [facility] [address] [place] [address] Josué Cook MD [address] [place] [id number] documented as of this encounter Visit Diagnoses Diagnosis Anemia Anemia, unspecified documented in this encounter Care Teams Wash House Worker Relationship Specialty Start Date End Date Jared Abrams MD PCP - General 08/28/11 07/16/22 documented as of this encounter
--- OUTSIDE RECORDS SUMMARY | 2024-08-18 10:41 | XMS_ITS | Encounter Summary ---
Author Organization [facility] Address [address] [facility] [place] [address] [place] [address] Care Team Providers Care Strip Presser Name Role Phone Jared Abrams MD Primary Care Provider [phone] Encounter Details Date Type Department Care Team (Late Contact Info) Description 08/28/2011 Abstract [facility] [place] [address] Marii Vela MD [place] [address] [phone] (Work) Social History Tobacco Use Types Packs/Day [...] Contact Info) Description 09/28/2024 2:30 PM DIGITAL FORENSIC ANALYST Appointment [facility] [address] [place], [place] [phone] Josué Cook MD [address] [facility] 8 [place] [address] documented as of this encounter Visit Diagnoses Diagnosis Acute renal failure (CMS/HCC) Acute kidney failure, unspecified documented in this encounter Care Teams Strip Presser Relationship Specialty Start Date End Date Jared Abrams MD PCP - General 08/28/11 07/16/22 documented as of this encounter
--- OUTSIDE RECORDS SUMMARY | 2024-08-18 10:41 | XMS_ITS | Encounter Summary ---
Author Organization [facility] Address [address] [place] [address] [place] [address] Care Team Providers Care Claims Adjuster Supervisor Name Role Phone Jared Abrams MD Primary Care Provider [phone] Encounter Details Date Type Department Care Team (Late st Contact Info) Description 02/08/2014 Abstract [facility] [address] [place] [address] Social History Tobacco Use Types Packs/Day Years [...] st Contact Info) Description 09/28/2024 2:30 PM DESKTOP MANAGER Appointment [facility] [address] [place] [address] Josué Cook MD [address] [facility] 8 [place] [address] documented as of this encounter Visit Diagnoses Diagnosis Pre-operative examination Preoperative examination, unspecified documented in this encounter Care Teams Claims Adjuster Supervisor Relationship Specialty Start Date End Date Jared Abrams MD PCP - General 08/28/11 07/16/22 documented as of this encounter
--- OUTSIDE RECORDS SUMMARY | 2024-08-18 10:41 | XMS_ITS | Encounter Summary ---
Author Organization [facility] Address [address] [facility] [place] [address] [place] [address] Care Team Providers Care Fitness Floor Attendant Name Role Phone Jared Abrams MD Primary Care Provider [phone] Encounter Details Date Type Department Care Team (Late st Contact Info) Description 10/21/2011 Abstract [facility] [address] [place] [address] Jared Abrams MD [address] [place] [address] Social History Tobacco Use Types Packs/Day Years [...] st Contact Info) Description 09/28/2024 2:30 PM MUSIC ADAPTER Appointment [facility] [address] [place] [address] Josué Cook MD [address] [place] [address] documented as of this encounter Visit Diagnoses Diagnosis Essential hypertension Unspecified essential hypertension documented in this encounter Care Teams Fitness Floor Attendant Relationship Specialty Start Date End Date Jared Abrasm MD PCP - General 08/28/11 07/16/22 documented as of this encounter
--- OUTSIDE RECORDS SUMMARY | 2024-08-18 10:41 | XMS_ITS | Encounter Summary ---
Author Organization [facility] Address [address] [facility] [address] [place] [address] Care Team Providers Care Spraying Machine Operator Name Role Phone Jared Abrams MD Primary Care Provider [phone] Encounter Details Date Type Department Care Team (Late st Contact Info) Description 10/01/2012 Abstract [facility] [address] [place] [address] Jared Abrams MD [address] [place] [address] Social History Tobacco Use Types Packs/Day Years [...] st Contact Info) Description 09/28/2024 2:30 PM FORENSIC MANAGER Appointment [facility] [address] [place] [address] Josué Cook MD [address] [place] [address] documented as of this encounter Visit Diagnoses Diagnosis Essential hypertension Unspecified essential hypertension documented in this encounter Care Teams Spraying Machine Operator Relationship Specialty Start Date End Date Jared Abrams MD PCP - General 08/28/11 07/16/22 documented as of this encounter
--- OUTSIDE RECORDS SUMMARY | 2024-08-18 10:41 | XMS_ITS | Encounter Summary ---
Author Organization [facility] Address [address] [facility] [place] [address] [place] [address] Care Team Providers Care Area Forester Name Role Phone Jared Abrams MD Primary Care Provider [phone] Encounter Details Date Type Department Care Team (Late Contact Info) Description 12/01/2009 Abstract [facility] CONVERSION [address] [place] [address] David Foy, SLD TEACHER [address] [place], [place] [phone] Social History Tobacco Use Types Packs/Day Years [...] (Late Contact Info) Description 09/28/2024 2:30 PM TAILERCPA Appointment [facility] Day Services [address] [place] [address] Josué Cook MD [address] [address] documented as of this encounter Visit Diagnoses Not on filedocumented in this encounter Care Teams Area Forester Relationship Specialty Start Date End Date Jared Abrams MD PCP - General 08/28/11 07/16/22 documented as of this encounter
--- OUTSIDE RECORDS SUMMARY | 2024-08-18 10:41 | XMS_ITS | Encounter Summary ---
Author Organization [facility] Address [address] [facility] [place] [address] [place] [address] Care Team Providers Care Sociology Adjunct Instructor Name Role Phone Jared Abrams MD Primary Care Provider Encounter Details Date Type Department Care Team (Late Contact Info) Description 03/22/2010 Abstract [facility] CONVERSION [address] [place] [address] Scar Diaz MD [address] [place] [address] Social History Tobacco Use Types Packs/Day Years [...] (Late Contact Info) Description 09/28/2024 2:30 PM REMELT FURNACE EXPEDITER Appointment [facility] [address] [place], [place] [phone] Josué Cook MD [address] [facility] 8 [place] [address] documented as of this encounter Visit Diagnoses Not on filedocumented in this encounter Care Teams Sociology Adjunct Instructor Relationship Specialty Start Date End Date Jared Abrams MD PCP - General 08/28/11 07/16/22 documented as of this encounter
--- OUTSIDE RECORDS SUMMARY | 2024-08-18 10:41 | XMS_ITS | Encounter Summary ---
Author Organization [facility] Address [address] [facility] [place] [address] [place] [address] Care Team Providers Care Eap Clinician Name Role Phone Jared Abrams MD Primary Care Provider [phone] Encounter Details Date Type Department Care Team (Late st Contact Info) Description 10/27/2012 Abstract [facility] [address] [place] [address] Jared Abrams MD [address] [place], [place] [id number] Social History Tobacco Use Types Packs/Day Years [...] st Contact Info) Description 09/28/2024 2:30 PM TANK TRUCK MILK RECEIVER Appointment [facility] Day Services [address] [place] [address] Josué Cook MD [address] [place] [address] documented as of this encounter Visit Diagnoses Diagnosis Encounter for screening mammogram for high-risk patient documented in this encounter Care Teams Eap Clinician Relationship Specialty Start Date End Date Jared Abrams MD PCP - General 08/28/11 07/16/22 documented as of this encounter
--- OUTSIDE RECORDS SUMMARY | 2024-08-18 10:41 | XMS_ITS | Encounter Summary ---
Author Organization [facility] Address [address] [facility] [place] [address] [place] [address] Care Team Providers Care Firesetter Name Role Phone Jared Abrams MD Primary Care Provider [phone] Encounter Details Date Type Department Care Team (Late st Contact Info) Description 10/14/2012 Abstract [facility] [address] [place] [address] Jared Abrams MD [address] [place] [address] Social History Tobacco Use Types Packs/Day Years [...] st Contact Info) Description 09/28/2024 2:30 PM MULTI TOWNSHIP ASSESSOR Appointment [facility] [address] [place] [address] Josué Cook MD [address] [place] [address] documented as of this encounter Visit Diagnoses Diagnosis Occlusion and stenosis of carotid artery Occlusion and stenosis of carotid artery without mention of cerebral infarction documented in this encounter Care Teams Firesetter Relationship Specialty Start Date End Date Jared Abrams MD PCP - General 08/28/11 07/16/22 documented as of this encounter
--- OUTSIDE RECORDS SUMMARY | 2024-08-18 10:41 | XMS_ITS | Encounter Summary ---
Author Organization [facility] Address [address] [facility] [place] [address] [place] [address] Care Team Providers Care Salad Chef Name Role Phone Jared Abrams MD Primary Care Provider [phone] Encounter Details Date Type Department Care Team (Latest Contact Info) Description 12/23/2019 2:45 PM CDT - 12/23/2019 11:59 PM CDT Hospital Encounter [facility] [address] [place] [address] Jared Abrams MD [address] [place], [place] [id number] Discharge Disposition: Home or Self Care (Routine [...] st Contact Info) Description 09/28/2024 2:30 PM FRIT MIXER Appointment [facility] Day Services [address] [place] [address] Josué Cook MD [address] [address] documented as of this encounter Procedures Procedure [...] ASSAY NEGATIVE NEGATIVE 12/23/2019 4:15 PM CDT [facility] STOOL SPECIMEN / Unknown 12/23/2019 2:50 PM CDT Jared Abrams MD BODY FLUIDS AND STOOLS ORDERAB LES Final Result [facility] [address] [place] [address], [place] [phone] * O&P CONC&SMEAR TO REF LAB (12/23/2019 2:50 PM CDT) Pathologist [facility] SPECIMEN SOURCE STOOL 0 2:47 PM CDT [facility] O & P EXAMINATION (STOOL) REPORT 12/28/2019 4:[address] [address] Comment: Ova and Parasites, Concentrate and Permanent Smear SOURCE : STOOL Test not performed. Transport device is not acceptable for test requested. Test Performed by [employer], [employer] [facility], [address] [place] [address] Gamal Gao M.D., Ph.D., Director of Laboratories , CLIA [id number] STOOL SPECIMEN / Unknown 12/23/2019 2:50 PM CDT Jared Abrams MD MICROBIOLOGY - GENERAL ORDERAB LES Final Result [facility] [address] [place] [address], [place] [phone] [facility] [address] [place] [address], [place] [phone] * Stool Culture (12/23/2019 2:49 PM CDT) SPEC DESCRIPTION STOOL 12/23/2019 2:47 PM CDT [facility] SPECIAL REQUESTS NO SPECIAL REQUEST 12/23/2019 2:47 PM CDT [facility] CULTURE RESULT NEGATIVE FOR SHIGA TOXIN 1 AND 2 12/29/2019 10:46 AM CDT [facility] CULTURE RESULT NO ENTERIC PATHOGENS ISOLATED 12/29/2019 10:46 AM CDT [facility] CULTURE RESULT NOTE: STOOL CULTURES ARE ROUTINELY SCREENED FOR SALMONELLA,SH IGELLA,YERSIN IA,AEROMONAS, PLESIOMONAS,C AMPYLOBA CTER,E.COLI 0157,OVERGROW THS OF S.AUREUS,YEAS T AND P. AERUGINOSA 12/29/2019 10:46 AM CDT [facility] Stool specimen (specimen) STOOL SPECIMEN / Unknown 12/23/2019 2:49 PM CDT 12/23/2019 2:50 PM CDT Jared Abrams MD MICROBIOLOGY - GENERAL ORDERAB LES Final Result [facility] [address] [place] [address], [place] [phone] [facility] [address] [place] [address], [place] [phone] documented in this encounter Visit Diagnoses Diagnosis Diarrhea of presumed infectious origin documented in this encounter Care Teams Salad Chef Relationship Specialty Start Date End Date Jared Abrams MD PCP - General 08/28/11 07/16/22 documented as of this encounter
--- OUTSIDE RECORDS SUMMARY | 2024-08-18 10:41 | XMS_ITS | Encounter Summary ---
Author Organization [facility] Address [address] [place] [address] [place] [address] Care Team Providers Care Cashier Or Checker Stock Clerk Name Role Phone Jared Abrams MD Primary Care Provider [phone] Encounter Details Date Type Department Care Team (Late Contact Info) Description 03/19/2010 Abstract [facility] CONVERSION [address] [place] [address] Jared Abrams MD 12[address] [place] [address] Social History Tobacco Use Types Packs/Day Years [...] (Late Contact Info) Description 09/28/2024 2:30 PM FLIGHT ENGINEER INSTRUCTOR Appointment [facility] Day Services [address] [place], [place] [address] Josué [place] [address] [place] [address] documented as of this encounter Visit Diagnoses Not on filedocumented in this encounter Care Teams Cashier Or Checker Stock Clerk Relationship Specialty Start Date End Date Jared Abrams MD PCP - General 08/28/11 07/16/22 documented as of this encounter
--- OUTSIDE RECORDS SUMMARY | 2024-08-18 10:41 | XMS_ITS | Encounter Summary ---
Author Organization [facility] Address [address] [facility] [place] [address] [place] [address] Care Team Providers Care National Stormwater Leader Name Role Phone Jared Abrams MD Primary Care Provider Encounter Details Date Type Department Care Team (Late st Contact Info) Description 07/26/[address] [facility] [address] [place] [address] Scar Diaz MD [address] [place] [address] Social History Tobacco Use Types Packs/Day Years [...] st Contact Info) Description 09/28/2024 2:30 PM OUTSEWER Appointment [facility] Day Services [address] [place] [address] Josué Cook MD [address] [place] [address] 8 [place] [address] documented as of this encounter Visit Diagnoses Diagnosis History of hip joint replacement by other means documented in this encounter Care Teams National Stormwater Leader Relationship Specialty Start Date End Date Jared Abrams MD PCP - General 08/28/11 07/16/22 documented as of this encounter
--- OUTSIDE RECORDS SUMMARY | 2024-08-18 10:41 | XMS_ITS | Encounter Summary ---
Author Organization [facility] Address [address] [facility] [place] [address] [place] [address] Care Team Providers Care Rod Piler Name Role Phone Jared Abrams MD Primary Care Provider Encounter Details Date Type Department Care Team (Late st Contact Info) Description 07/18/2010 Abstract [facility] [address] [place] [address] Esperanza Crane PA [address] [place] [address] Social History Tobacco Use Types Packs/Day Years [...] st Contact Info) Description 09/28/2024 2:30 PM CONTRACTS ADVISOR Appointment [facility] [address] [place] [address] Josué Cook MD [address] [place] [address] documented as of this encounter Visit Diagnoses Diagnosis Senile osteoporosis documented in this encounter Care Teams Rod Piler Relationship Specialty Start Date End Date Jared Abrams MD PCP - General 08/28/11 07/16/22 documented as of this encounter
--- OUTSIDE RECORDS SUMMARY | 2024-08-18 10:41 | XMS_ITS | Encounter Summary ---
Author Organization [facility] Address [address] [facility] [place] [address] [place] [address] Care Team Providers Care Cement Sprayer Helper Name Role Phone Jared Abrams MD Primary Care Provider [phone] Encounter Details Date Type Department Care Team (Late st Contact Info) Description 07/25/2016 Abstract [facility] [address] [place] [address] Jared Abrams MD 12[address] [place] [address] Social History Tobacco Use Types Packs/Day Years [...] st Contact Info) Description 09/28/2024 2:30 PM THREAD TRIMMER Appointment [facility] [address] [place] [address] Josué Cook MD [address] [place] [address] documented as of this encounter Visit Diagnoses Diagnosis Encounter for screening mammogram for malignant neoplasm of breast Other screening mammogram documented in this encounter Care Teams Cement Sprayer Helper Relationship Specialty Start Date End Date Jared Abrams MD PCP - General 08/28/11 07/16/22 documented as of this encounter
--- OUTSIDE RECORDS SUMMARY | 2024-08-18 10:41 | XMS_ITS | Encounter Summary ---
Author Organization [facility] Address [address] [facility] [place] [address] [place] [address] Care Team Providers Care Car Worker Name Role Phone Jared Abrams MD Primary Care Provider [phone] Encounter Details Date Type Department Care Team (Late st Contact Info) Description 06/26/2011 Abstract [facility] [address] [place] [address] David Foy, MARKETING INFORMATION MANAGER [address] [place], [place] [address] Social History Tobacco Use Types Packs/Day Years [...] st Contact Info) Description 09/28/2024 2:30 PM BISQUE KILN DRAWER Appointment [facility] Day [facility] [address] [place] [address] Josué Cook MD [address] [address] documented as of this encounter Visit Diagnoses Diagnosis Other screening mammogram documented in this encounter Care Teams Car Worker Relationship Specialty Start Date End Date Jared Abrams MD PCP - General 08/28/11 07/16/22 documented as of this encounter
--- OUTSIDE RECORDS SUMMARY | 2024-08-18 10:41 | XMS_ITS | Encounter Summary ---
Author Organization [facility] Address [address] [facility] [place] [address] [place] [address] Care Team Providers Care Lapel Padder Name Role Phone Jared Abrams MD Primary Care Provider [phone] Encounter Details Date Type Department Care Team (Late st Contact Info) Description 09/23/2011 Abstract [facility] [address] [place] [address] Jared Abrams MD [address] [place] [address] Social History Tobacco Use Types Packs/Day Years [...] st Contact Info) Description 09/28/2024 2:30 PM ATTORNEY RECRUITER Appointment [facility] [address] [place] [address] Josué Cook MD [address] [place] [address] documented as of this encounter Visit Diagnoses Diagnosis Essential hypertension Unspecified essential hypertension documented in this encounter Care Teams Lapel Padder Relationship Specialty Start Date End Date Jared Abrams MD PCP - General 08/28/11 07/16/22 documented as of this encounter
--- OUTSIDE RECORDS SUMMARY | 2024-08-18 10:41 | XMS_ITS | Encounter Summary ---
Author Organization [facility] Address [address] [facility] [place] [address] [place] [address] Care Team Providers Care Food Truck Caterer Name Role Phone Jared Abrams MD Primary Care Provider Encounter Details Date Type Department Care Team (Late st Contact Info) Description 01/06/2012 Abstract [facility] [address] [place] [address] Jared Abrams MD [address]12 [place] [address] Social History Tobacco Use Types Packs/Day Years [...] st Contact Info) Description 09/28/2024 2:30 PM BLUEBERRY GROWER Appointment [facility] Day Services [address] [place] [address] Josué Cook MD [address] [place] [address] documented as of this encounter Visit Diagnoses Diagnosis Anemia Anemia, unspecified documented in this encounter Care Teams Food Truck Caterer Relationship Specialty Start Date End Date Jared Abrams MD PCP - General 08/28/11 07/16/22 documented as of this encounter
--- OUTSIDE RECORDS SUMMARY | 2024-08-18 10:41 | XMS_ITS | Encounter Summary ---
Author Organization [facility] Address [address] [facility] [place] [address] [place] [address] Care Team Providers Care Director Of Curriculum And Instruction Name Role Phone Jared Abrams MD Primary Care Provider [phone] Encounter Details Date Type Department Care Team (Late Contact Info) Description 12/23/2019 Orders Only [facility] [address] [place] [address] Jared Abrams MD [address] [place] [address] Social History Tobacco Use Types Packs/Day Years [...] st Contact Info) Description 09/28/2024 2:30 PM ELECTROPHYSIOLOGY TECH Appointment [facility] Day Services [address] [place] [address] Josué Cook MD [address] [facility] 8 [place] [address] documented as of this encounter Results * O&P CONC&SMEAR TO REF LAB (12/23/2019 2:50 PM CDT) SPECIMEN SOURCE STOOL 0 2:47 PM CDT [facility] O & P EXAMINATION (STOOL) REPORT 12/28/2019 4:36 PM CDT [facility] Comment: Ova and Parasites, Concentrate and Permanent Smear SOURCE : STOOL Test not performed. Transport device is not acceptable for test requested. Test Performed by [employer], [employer] [facility], [address] [place] [address] Gamal Gao M.D., Ph.D., Director of Laboratories , [facility] [id number] STOOL SPECIMEN / Unknown 12/23/2019 2:50 PM CDT Jared Abrams MD MICROBIOLOGY - GENERAL ORDERAB LES Final Result [facility] [address] , [place] [phone] [facility] [address] [place] [address], [place] [phone] * CLOSTRIDIUM DIFFICILE (12/23/2019 2:50 PM CDT) Pathologist [facility] MOLECULAR ASSAY NEGATIVE NEGATIVE 12/23/2019 4:15 PM CDT [facility] STOOL SPECIMEN / Unknown 12/23/2019 2:50 PM CDT Jared Abrams MD BODY FLUIDS AND STOOLS ORDERAB LES Final Result [facility] [address] [place] [address], [place] [phone] * Stool Culture (12/23/2019 2:49 PM CDT) SPEC DESCRIPTION STOOL 12/23/2019 2:47 PM CDT [facility] SPECIAL REQUESTS NO SPECIAL REQUEST 12/23/2019 2:47 PM CDT [facility] CULTURE RESULT NEGATIVE FOR SHIGA TOXIN 1 AND 2 12/29/2019 10:46 AM CDT [facility] CULTURE RESULT NO ENTERIC PATHOGENS ISOLATED 12/29/2019 10:46 AM CDT [facility] CULTURE RESULT NOTE: STOOL CULTURES ARE ROUTINELY SCREENED FOR SALMONELLA,SH IGELLA,YERSIN IA,AEROMONAS, PLESIOMONAS,C AMPYLOBA CTER,E.COLI 0157,OVERGROW THS OF S.AUREUS,YEAS T AND P. AERUGINOSA 12/29/2019 10:46 AM CDT [facility] Stool specimen (specimen) STOOL SPECIMEN / Unknown 12/23/2019 2:49 PM CDT 12/23/2019 2:50 PM CDT us Jared Abrams MD MICROBIOLOGY - GENERAL ORDERAB LES Final Result Performing Organization Address [facility] Co de Phone Number [facility] [address] [place] [address], [place] [phone] [facility] [address] [place] [address], [place] [phone] documented in this encounter Visit Diagnoses Diagnosis Diarrhea of presumed infectious origin- Primary documented in this encounter Care Teams Director Of Curriculum And Instruction Relationship Specialty Start Date End Date Jared Abrams MD PCP - General 08/28/11 07/16/22 documented as of this encounter
--- OUTSIDE RECORDS SUMMARY | 2024-08-18 10:41 | XMS_ITS | Encounter Summary ---
Author Organization [facility] Address [address] [place] [address] [place] [address] Care Team Providers Care Pickler Helper Name Role Phone Jared Abrams MD Primary Care Provider Encounter Details Date Type Department Care Team (Late Contact Info) Description 08/28/2011 Abstract [facility] Emergency Room [address] [place] [address] Andrez Cheema MD [address] [address] Social History Tobacco Use Types [...] st Contact Info) Description 09/28/2024 2:30 PM PLSQL DEVELOPER Appointment [facility] One Day Services [address] [place] [address] Josué Cook MD [facility] [address] [address] documented as of this encounter Visit Diagnoses Diagnosis Dizziness and giddiness documented in this encounter Care Teams Pickler Helper Relationship Specialty Start Date End Date Jared Abrams MD PCP - General 08/28/11 07/16/22 documented as of this encounter
--- OUTSIDE RECORDS SUMMARY | 2024-08-18 10:41 | XMS_ITS | Encounter Summary ---
Author Organization [facility] Address [address] [facility] [place] [address] [place] [address] Care Team Providers Care Registered Dental Hygienist Name Role Phone Jared Abrams MD Primary Care Provider [phone] Encounter Details Date Type Department Care Team (Late st Contact Info) Description 07/06/2012 Abstract [facility] [address] [place] [address] Jared Abrams MD 1212 [place] [address] Social History Tobacco Use Types Packs/Day Years [...] st Contact Info) Description 09/28/2024 2:30 PM SPINNING FRAME FIXER Appointment [facility] One Day Services [address] [place] [address] Josué Cook MD [address] [place] [address] documented as of this encounter Visit Diagnoses Diagnosis Other seborrheic keratosis documented in this encounter Care Teams Registered Dental Hygienist Relationship Specialty Start Date End Date Jared Abrams MD PCP - General 08/28/11 07/16/22 documented as of this encounter
--- OUTSIDE RECORDS SUMMARY | 2024-08-18 10:41 | XMS_ITS | Encounter Summary ---
Author Organization [facility] Address [address] [place] [address] [place] [address] Care Team Providers Care Group Managing Director Name Role Phone Jared Abrams MD Primary Care Provider [phone] Encounter Details Date Type Department Care Team (Late st Contact Info) Description 03/22/2015 Abstract [facility] [address] [place] [address] Jared Abrams MD 1212 [place] [address] Social History Tobacco Use Types Packs/Day Years [...] st Contact Info) Description 09/28/2024 2:30 PM CAPACITOR TESTER Appointment [facility] One Day Services [address] [place] [address] Josué Cook MD [address] [place] [address] documented as of this encounter Visit Diagnoses Diagnosis Other seborrheic keratosis documented in this encounter Care Teams Group Managing Director Relationship Specialty Start Date End Date Jared Abrams MD PCP - General 08/28/11 07/16/22 documented as of this encounter
--- OUTSIDE RECORDS SUMMARY | 2024-08-18 10:42 | XMS_ITS | Encounter Summary ---
Author Organization [facility] Address [address] [facility] [place] [address] [place] [address] Care Team Providers Care Bagger Meat Name Role Phone Jared Abrams MD Primary Care Provider Encounter Details Date Type Department Care Team (Late Contact Info) Description 11/23/2009 Abstract [facility] CONVERSION 9515 [place] [address] Scar Diaz MD [address] [place] [address] Social History Tobacco Use Types Packs/Day Years [...] (Late Contact Info) Description 09/28/2024 2:30 PM MEDICAL OFFICE CLERK Appointment [facility] Day [facility] [address] [place], [place] [id number] Josué Cook MD 49[address] [facility] 8 [place] [address] documented as of this encounter Visit Diagnoses Not on filedocumented in this encounter Care Teams Bagger Meat Relationship Specialty Start Date End Date Jared Abrams MD PCP - General 08/28/11 07/16/22 documented as of this encounter
--- OUTSIDE RECORDS SUMMARY | 2024-08-18 10:42 | XMS_ITS | Encounter Summary ---
Author Organization [facility] Address [address] [facility] [place] [address] [place] [address] Care Team Providers Care It Sales Consultant Name Role Phone Jared Abrams MD Primary Care Provider [phone] Encounter Details Date Type Department Care Team (Late Contact Info) Description 09/23/2008 Abstract [facility] One Day Services [address] [place] [address] Vladimir Parsons MD [address] [address] Social History Tobacco Use Types Packs/Day Years [...] st Contact Info) Description 09/28/2024 2:30 PM PRESSURE SUPERVISOR Appointment [facility] One Day Services [address] [place] [address] Josué Cook MD [facility] [address] [address] documented as of this encounter Visit Diagnoses Not on filedocumented in this encounter Care Teams It Sales Consultant Relationship Specialty Start Date End Date Jared Abrams MD PCP - General 08/28/11 07/16/22 documented as of this encounter
--- OUTSIDE RECORDS SUMMARY | 2024-08-18 10:42 | XMS_ITS | Encounter Summary ---
Author Organization [facility] Address [address] [facility] [place] [address] [place] [address] Care Team Providers Care Health Information Assistant Name Role Phone Jared Abrams MD Primary Care Provider [phone] Encounter Details Date Type Department Care Team (Late Contact Info) Description 12/19/2003 Abstract [facility] CONVERSION [address] [place] [address] Jared Abrams MD 1212 [place] [address] Social History Tobacco Use Types Packs/Day Years [...] (Late Contact Info) Description 09/28/2024 2:30 PM SOCIAL SERVICE AGENCY DIRECTOR Appointment [facility] One Day Services [address] [place] [phone] Josué [place] [address] [place] [address] documented as of this encounter Visit Diagnoses Not on filedocumented in this encounter Care Teams Health Information Assistant Relationship Specialty Start Date End Date Jared Abrams MD PCP - General 08/28/11 07/16/22 documented as of this encounter
--- OUTSIDE RECORDS SUMMARY | 2024-08-18 10:42 | XMS_ITS | Encounter Summary ---
Author Organization [facility] Address [address] [facility] [place] [address] [place] [address] Care Team Providers Care Residential Tech Name Role Phone Jared Abrams MD Primary Care Provider Encounter Details Date Type Department Care Team (Late Contact Info) Description 09/06/2004 Abstract [facility] [address] [place] [address] Scar Diaz MD [address] [place] [address] Social History Tobacco Use Types Packs/Day Years [...] (Late Contact Info) Description 09/28/2024 2:30 PM FRONT END WEB DESIGNER Appointment [facility] Day [facility] [address] [place], [place] [phone] Josué Cook MD 49[address] [facility] 8 [place] [address] documented as of this encounter Visit Diagnoses Not on filedocumented in this encounter Care Teams Residential Tech Relationship Specialty Start Date End Date Jared Abrams MD PCP - General 08/28/11 07/16/22 documented as of this encounter
--- OUTSIDE RECORDS SUMMARY | 2024-08-18 10:42 | XMS_ITS | Encounter Summary ---
Author Organization [facility] Address [address] [place] [address] [place] [address] Care Team Providers Care Financial Reporting Director Name Role Phone Jared Abrams MD Primary Care Provider [phone] Encounter Details Date Type Department Care Team (Late Contact Info) Description 09/29/2006 Abstract [facility] CONVERSION [address] [place] [address] Scar Diaz MD [address] [place] [address] Social History Tobacco Use Types Packs/Day Years [...] (Late Contact Info) Description 09/28/2024 2:30 PM HAT SIZER Appointment [facility] One Day Services [address] [place] [address] Josué Cook MD [address] [place] [address] 8 [place] [address] documented as of this encounter Visit Diagnoses Not on filedocumented in this encounter Care Teams Financial Reporting Director Relationship Specialty Start Date End Date Jared Abrams MD PCP - General 08/28/11 07/16/22 documented as of this encounter
--- OUTSIDE RECORDS SUMMARY | 2024-08-18 10:42 | XMS_ITS | Encounter Summary ---
Author Organization [facility] Address [address] [facility] [place] [address] [place] [address] Care Team Providers Care Information Technology Auditor Name Role Phone Jared Abrams MD Primary Care Provider [phone] Encounter Details Date Type Department Care Team (Late Contact Info) Description 08/28/2006 Abstract [facility] CONVERSION [address] [facility] [place] [address] Scar Diaz MD [address] [place] [address] Social History Tobacco Use Types Packs/Day Years [...] (Late Contact Info) Description 09/28/2024 2:30 PM STATION EXAMINER Appointment [facility] One Day Services [address] [place] [address] Josué Cook MD [address] [place] [address] 8 [place] [address] documented as of this encounter Visit Diagnoses Not on filedocumented in this encounter Care Teams Information Technology Auditor Relationship Specialty Start Date End Date Jared Abrams MD PCP - General 08/28/11 07/16/22 documented as of this encounter
--- OUTSIDE RECORDS SUMMARY | 2024-08-18 10:42 | XMS_ITS | Encounter Summary ---
Author Organization [facility] Address [address] [place] [address] [place] [address] Care Team Providers Care Home Theater Specialist Name Role Phone Jared Abrams MD Primary Care Provider [phone] Encounter Details Date Type Department Care Team (Late Contact Info) Description 04/28/2004 Abstract [facility] CONVERSION [address] [facility] [place] [address] Scar Diaz MD [address] [place] [address] Social History Tobacco Use Types Packs/Day Years [...] (Late Contact Info) Description 09/28/2024 2:30 PM HEATER TENDER Appointment [facility] One Day Services [address] [place] [address] Josué Cook MD [address] [place] [address] 8 [place] [address] documented as of this encounter Visit Diagnoses Not on filedocumented in this encounter Care Teams Home Theater Specialist Relationship Specialty Start Date End Date Jared Abrams MD PCP - General 08/28/11 07/16/22 documented as of this encounter
--- OUTSIDE RECORDS SUMMARY | 2024-08-18 10:42 | XMS_ITS | Encounter Summary ---
Author Organization [facility] Address [address] [facility] [place] [address] [place] [address] Care Team Providers Care Field Artillery Fire Control Man Name Role Phone Jared Abrams MD Primary Care Provider [phone] Encounter Details Date Type Department Care Team (Late Contact Info) Description 01/09/2009 Abstract [facility] CONVERSION [address] [place] [address] David Foy, HYDRAULIC BARKER OPERATOR [address] [place], [place] [phone] Social History Tobacco Use Types Packs/Day Years [...] (Late Contact Info) Description 09/28/2024 2:30 PM FREELANCE ART DIRECTOR Appointment [facility] One Day Services [address] [place] [address] Josué Cook MD [address] [address] documented as of this encounter Visit Diagnoses Not on filedocumented in this encounter Care Teams Field Artillery Fire Control Man Relationship Specialty Start Date End Date Jared Abrams MD PCP - General 08/28/11 07/16/22 documented as of this encounter
--- OUTSIDE RECORDS SUMMARY | 2024-08-18 10:42 | XMS_ITS | Encounter Summary ---
Author Organization [facility] Address [address] [facility] [place] [address] [place] [address] Care Team Providers Care Stock Ranch Supervisor Name Role Phone Jared Abrams MD Primary Care Provider [phone] Encounter Details Date Type Department Care Team (Late Contact Info) Description 12/30/2008 Abstract [facility] 9515 [place] [address] Jared Abrams MD [facility] [place] [address] Social History Tobacco Use Types Packs/Day Years [...] (Late Contact Info) Description 09/28/2024 2:30 PM APPLICATION DEVELOPMENT TEAM LEAD Appointment [facility] Day [facility] [address] [place], [place] [phone] Josué [place] [address] [place] [address] documented as of this encounter Visit Diagnoses Not on filedocumented in this encounter Care Teams Stock Ranch Supervisor Relationship Specialty Start Date End Date Jared Abrams MD PCP - General 08/28/11 07/16/22 documented as of this encounter
--- OUTSIDE RECORDS SUMMARY | 2024-08-18 10:42 | XMS_ITS | Encounter Summary ---
Author Organization [facility] Address [address] [facility] [place] [address] [place] [address] Care Team Providers Care Disease Education Specialist Name Role Phone Jared Abrams MD Primary Care Provider [phone] Encounter Details Date Type Department Care Team (Late Contact Info) Description 08/14/2006 Abstract [facility] CONVERSION [address] [place] [address] David Foy, OPERATING ROOM TECHNOLOGIST [address] [place], [place] [address] Social History Tobacco Use Types Packs/Day Years [...] (Late Contact Info) Description 09/28/2024 2:30 PM CHAIN PEGGER Appointment [facility] One Day Services [address] [place] [address] Josué Cook MD [address] [address] documented as of this encounter Visit Diagnoses Not on filedocumented in this encounter Care Teams Disease Education Specialist Relationship Specialty Start Date End Date Jared Abrams MD PCP - General 08/28/11 07/16/22 documented as of this encounter
--- OUTSIDE RECORDS SUMMARY | 2024-08-18 10:42 | XMS_ITS | Encounter Summary ---
Author Organization [facility] Address [address] [facility] [place] [address] [place] [address] Care Team Providers Care Assistant Manager Airside Operations Name Role Phone Jared Abrams MD Primary Care Provider [phone] Encounter Details Date Type Department Care Team (Late Contact Info) Description 07/25/2004 Abstract [facility] CONVERSION [address] [place] [address] Jared Abrams MD 1212 [place] [address] Social History Tobacco Use Types Packs/Day Years [...] (Late Contact Info) Description 09/28/2024 2:30 PM GRADE AND CENTER MARKER Appointment [facility] One Day Services [address] [place] [address] Josué [place] [address] [place] [address] documented as of this encounter Visit Diagnoses Not on filedocumented in this encounter Care Teams Assistant Manager Airside Operations Relationship Specialty Start Date End Date Jared Abrams MD PCP - General 08/28/11 07/16/22 documented as of this encounter
--- OUTSIDE RECORDS SUMMARY | 2024-08-18 10:42 | XMS_ITS | Encounter Summary ---
Author Organization [facility] Address [address] [facility] [place] [address] [place] [address] Care Team Providers Care Antique Jewelry Repairer Name Role Phone Jared Abrams MD Primary Care Provider [phone] Encounter Details Date Type Department Care Team (Late Contact Info) Description 08/14/2006 Abstract [facility] 9515 [place] [address] Scar Diaz MD [address] [place] [address] Social History Tobacco Use Types Packs/Day Years [...] (Late Contact Info) Description 09/28/2024 2:30 PM FLOOR ASSEMBLER Appointment [facility] Day [facility] [address] [place], [place] [address] Josué Cook MD 4921 [facility] 8 [place] [address] documented as of this encounter Visit Diagnoses Not on filedocumented in this encounter Care Teams Antique Jewelry Repairer Relationship Specialty Start Date End Date Jared Abrams MD PCP - General 08/28/11 07/16/22 documented as of this encounter
--- OUTSIDE RECORDS SUMMARY | 2024-08-18 10:42 | XMS_ITS | Encounter Summary ---
Author Organization [facility] Address [address] [facility] [place] [address] [place] [address] Care Team Providers Care Prosthetic Assistant Name Role Phone Jared Abrams MD Primary Care Provider [phone] Encounter Details Date Type Department Care Team (Late Contact Info) Description 03/19/2005 Abstract [facility] [address]15 [place] [address] Scar Diaz MD [address] [place] [address] Social History Tobacco Use Types Packs/Day Years [...] (Late Contact Info) Description 09/28/2024 2:30 PM COPYRIGHT MANAGER Appointment [facility] Day [facility] [address] [place] [address] Josué Cook MD 4921 [facility] 8 [place] [address] documented as of this encounter Visit Diagnoses Not on filedocumented in this encounter Care Teams Prosthetic Assistant Relationship Specialty Start Date End Date Jared Abrams MD PCP - General 08/28/11 07/16/22 documented as of this encounter
--- OUTSIDE RECORDS SUMMARY | 2024-08-18 10:42 | XMS_ITS | Encounter Summary ---
Author Organization [facility] Address [address] [facility] [place] [address] [place] [address] Care Team Providers Care Overcaster Name Role Phone Jared Abrams MD Primary Care Provider [phone] Encounter Details Date Type Department Care Team (Late Contact Info) Description 12/27/2003 Abstract [facility] CONVERSION [address] [place] [address] Jared Abrams MD 1212 [place] [address] Social History Tobacco Use Types Packs/Day Years [...] (Late Contact Info) Description 09/28/2024 2:30 PM TECHNICAL APPLICATIONS SPECIALIST Appointment [facility] One Day Services [address] [place] [address] Josué [place] [address] [place] [address] documented as of this encounter Visit Diagnoses Not on filedocumented in this encounter Care Teams Overcaster Relationship Specialty Start Date End Date Jared Abrams MD PCP - General 08/28/11 07/16/22 documented as of this encounter
--- OUTSIDE RECORDS SUMMARY | 2024-08-18 10:42 | XMS_ITS | Encounter Summary ---
Author Organization [facility] Address [address] [facility] [place] [address] [place] [address] Care Team Providers Care [place] Supervisor Name Role Phone Jared Abrams MD Primary Care Provider [phone] Encounter Details Date Type Department Care Team (Late st Contact Info) Description 04/21/2004 Abstract [facility] Conversion , Generic ConversionMD Social [...] Contact Info) Description 09/28/2024 2:30 PM DIRECTOR CHILD Appointment [facility] One Day [facility] [address] [place] [address] Josué Cook MD [address] [address] documented as of this encounter Visit Diagnoses Not on filedocumented in this encounter Care Teams Mill House Supervisor Relationship Specialty Start Date End Date Jared Abrams MD PCP - General 08/28/11 07/16/22 documented as of this encounter
--- OUTSIDE RECORDS SUMMARY | 2024-08-18 10:42 | XMS_ITS | Encounter Summary ---
Author Organization [facility] Address [address] [place] [address] [place] [address] Care Team Providers Care Santa'S Helper Name Role Phone Jared Abrams MD Primary Care Provider [phone] Encounter Details Date Type Department Care Team (Late Contact Info) Description 01/12/2004 Abstract [facility] CONVERSION 9515 [place] [address] Scar Diaz MD [address] [place] [address] Social History Tobacco Use Types Packs/Day Years [...] (Late Contact Info) Description 09/28/2024 2:30 PM WINDOW TINTER Appointment [facility] Day [facility] [address] [place], [place] [address] Josué Cook MD 4921 [facility] 8 [place] [address] documented as of this encounter Visit Diagnoses Not on filedocumented in this encounter Care Teams Santa'S Helper Relationship Specialty Start Date End Date Jared Abrams MD PCP - General 08/28/11 07/16/22 documented as of this encounter
--- OUTSIDE RECORDS SUMMARY | 2024-08-18 10:42 | XMS_ITS | Encounter Summary ---
Author Organization [facility] Address [address] [facility] [place] [address] [place] [address] Care Team Providers Care Corral Boss Name Role Phone Jared Abrams MD Primary Care Provider [phone] Encounter Details Date Type Department Care Team (Late Contact Info) Description 08/25/2006 Abstract [facility] CONVERSION [address] [place] [address] David Foy, CLAIMS SUPERVISOR [address] [place], [place] [phone] Social History Tobacco Use Types Packs/Day Years [...] (Late Contact Info) Description 09/28/2024 2:30 PM RESILIENT TILE INSTALLER Appointment [facility] One Day Services [address] [place] [address] Josué Cook MD [address] [address] documented as of this encounter Visit Diagnoses Not on filedocumented in this encounter Care Teams Corral Boss Relationship Specialty Start Date End Date Jared Abrams MD PCP - General 08/28/11 07/16/22 documented as of this encounter
--- OUTSIDE RECORDS SUMMARY | 2024-08-18 10:42 | XMS_ITS | Encounter Summary ---
Author Organization [facility] Address [address] [facility] [place] [address] [place] [address] Care Team Providers Care Pairer Substandard Name Role Phone Jared Abrams MD Primary Care Provider [phone] Encounter Details Date Type Department Care Team (Late Contact Info) Description 02/23/2004 Abstract [facility] CONVERSION 9515 [place] [address] Scar Diaz MD [address] [place] [address] Social History Tobacco Use Types Packs/Day Years [...] (Late Contact Info) Description 09/28/2024 2:30 PM CAGE TENDER Appointment [facility] Day [facility] [address] [place], [place] [phone] Josué Cook MD 49[address] [facility] 8 [place] [address] documented as of this encounter Visit Diagnoses Not on filedocumented in this encounter Care Teams Pairer Substandard Relationship Specialty Start Date End Date Jared Abrams MD PCP - General 08/28/11 07/16/22 documented as of this encounter
--- OUTSIDE RECORDS SUMMARY | 2024-08-18 10:42 | XMS_ITS | Encounter Summary ---
Author Organization [facility] Address [address] [facility] [address] [place] [address] Care Team Providers Care Policy Value Calculator Name Role Phone Jared Abrams MD Primary Care Provider [phone] Encounter Details Date Type Department Care Team (Late Contact Info) Description 03/12/2004 Abstract [facility] CONVERSION [address] [place] [address] Jared Abrams MD 1212 [place] [address] Social History Tobacco Use Types Packs/Day Years [...] (Late Contact Info) Description 09/28/2024 2:30 PM GROUND WOOD SUPERVISOR Appointment [facility] One Day Services [address] [place] [address] Josué Cook MD [address] [place] [address] documented as of this encounter Visit Diagnoses Not on filedocumented in this encounter Care Teams Policy Value Calculator Relationship Specialty Start Date End Date Jared Abrams MD PCP - General 08/28/11 07/16/22 documented as of this encounter
--- OUTSIDE RECORDS SUMMARY | 2024-08-18 10:42 | XMS_ITS | Encounter Summary ---
Author Organization [facility] Address [address] [facility] [place] [address] [place] [address] Care Team Providers Care Bail Bonding Agent Name Role Phone Jared Abrams MD Primary Care Provider [phone] Encounter Details Date Type Department Care Team (Late Contact Info) Description 05/17/2004 Abstract [facility] CONVERSION 9515 [place] [address] Scar Diaz MD [address] [place] [address] Social History Tobacco Use Types Packs/Day Years [...] (Late Contact Info) Description 09/28/2024 2:30 PM MARKETING PRODUCTION SPECIALIST Appointment [facility] Day [facility] [address] [place], [place] [phone] Josué Cook MD [address] [facility] 8 [place] [address] documented as of this encounter Visit Diagnoses Not on filedocumented in this encounter Care Teams Bail Bonding Agent Relationship Specialty Start Date End Date Jared Abrams MD PCP - General 08/28/11 07/16/22 documented as of this encounter
--- OUTSIDE RECORDS SUMMARY | 2024-08-18 10:42 | XMS_ITS | Encounter Summary ---
Author Organization [facility] Address [address] [facility] [place] [address] [place] [address] Care Team Providers Care Music Theory Teacher Name Role Phone Jared Abrams MD Primary Care Provider [phone] Encounter Details Date Type Department Care Team (Late st Contact Info) Description 08/08/2005 Abstract [facility] Conversion , Generic ConversionMD [...] st Contact Info) Description 09/28/2024 2:30 PM DRY CLEANER Appointment [facility] One Day [facility] [address] [place] [address] Josué Cook MD [address] [address] documented as of this encounter Visit Diagnoses Not on filedocumented in this encounter Care Teams Music Theory Teacher Relationship Specialty Start Date End Date Jared Abrams MD PCP - General 08/28/11 07/16/22 documented as of this encounter
--- OUTSIDE RECORDS SUMMARY | 2024-08-18 10:42 | XMS_ITS | Encounter Summary ---
Author Organization [facility] Address [address] [facility] [place] [address] [place] [address] Care Team Providers Care Lace Stripper Name Role Phone Jared Abrams MD Primary Care Provider [phone] Encounter Details Date Type Department Care Team (Late Contact Info) Description 11/17/2003 Abstract [facility] CONVERSION 9515 [place] [address] Scar Diaz MD [address] [place] [address] Social History Tobacco Use Types Packs/Day Years [...] (Late Contact Info) Description 09/28/2024 2:30 PM RESTAURANT OPERATIONS MANAGER Appointment [facility] Day [facility] [address] [place], [place] [phone] Josué Cook MD [address] [facility] 8 [place] [address] documented as of this encounter Visit Diagnoses Not on filedocumented in this encounter Care Teams Lace Stripper Relationship Specialty Start Date End Date Jared Abrams MD PCP - General 08/28/11 07/16/22 documented as of this encounter
--- OUTSIDE RECORDS SUMMARY | 2024-08-18 10:42 | XMS_ITS | Encounter Summary ---
Author Organization [facility] Address [address] [facility] [place] [address] [place] [address] Care Team Providers Care Leaflet Or Newspaper Deliverer Name Role Phone Jared Abrams MD Primary Care Provider [phone] Encounter Details Date Type Department Care Team (Late Contact Info) Description 08/12/2006 Abstract [facility] CONVERSION 9515 [place] [address] Jared Abrams MD [facility] [place] [address] Social History Tobacco Use Types Packs/Day Years [...] (Late Contact Info) Description 09/28/2024 2:30 PM CIVIL ENGINEERING DRAFTSPERSON Appointment [facility] Day [facility] [address] [place], [place] [phone] Josué [place] [address] [place] [address] documented as of this encounter Visit Diagnoses Not on filedocumented in this encounter Care Teams Leaflet Or Newspaper Deliverer Relationship Specialty Start Date End Date Jared Abrams MD PCP - General 08/28/11 07/16/22 documented as of this encounter
--- OUTSIDE RECORDS SUMMARY | 2024-08-18 10:42 | XMS_ITS | Encounter Summary ---
Author Organization [facility] Address [address] [facility] [place] [address] [place] [address] Care Team Providers Care Check Clerk Name Role Phone Jared Abrams MD Primary Care Provider Encounter Details Date Type Department Care Team (Late Contact Info) Description 2006 Abstract [facility] CONVERSION 9515 [place] [address] Scar Diaz MD [address] [place] [address] Social History Tobacco Use Types Packs/Day Years [...] (Late Contact Info) Description 09/28/2024 2:30 PM DATA COMMUNICATIONS SOFTWARE CONSULTANT Appointment [facility] Day [facility] [address] [place], [place] [phone] Josué Cook MD 49[address] [facility] 8 [place] [address] documented as of this encounter Visit Diagnoses Not on filedocumented in this encounter Care Teams Check Clerk Relationship Specialty Start Date End Date Jared Abrams MD PCP - General 08/28/11 07/16/22 documented as of this encounter
--- OUTSIDE RECORDS SUMMARY | 2024-08-18 10:42 | XMS_ITS | Encounter Summary ---
Author Organization [facility] Address [address] [facility] [place] [address] [place] [address] Care Team Providers Care Contact Center Agent Name Role Phone Jared Abrams MD Primary Care Provider [phone] Encounter Details Date Type Department Care Team (Late Contact Info) Description 08/22/2008 Abstract [facility] CONVERSION [address] [place] [address] Jared Abrams MD 1212 [place] [address] Social History Tobacco Use Types Packs/Day Years [...] (Late Contact Info) Description 09/28/2024 2:30 PM MOTORMAN/WOMAN Appointment [facility] One Day Services [address] [place], [place] [phone] Josué [place] [address] [place] [address] documented as of this encounter Visit Diagnoses Not on filedocumented in this encounter Care Teams Contact Center Agent Relationship Specialty Start Date End Date Jared Abrams MD PCP - General 08/28/11 07/16/22 documented as of this encounter
--- OUTSIDE RECORDS SUMMARY | 2024-08-18 10:42 | XMS_ITS | Encounter Summary ---
Author Organization [facility] Address [address] [facility] [place] [address] [place] [address] Care Team Providers Care Deaf And Hard Of Hearing Teacher Name Role Phone Jared Abrams MD Primary Care Provider [phone] Encounter Details Date Type Department Care Team (Late Contact Info) Description 05/29/[address] [facility] CONVERSION [address] [facility] [place] [address] Scar Diaz MD [address] [place] [address] Social History Tobacco Use Types Packs/Day Years [...] (Late Contact Info) Description 09/28/2024 2:30 PM TERRITORY ACCOUNT MANAGER Appointment [facility] One Day Services [address] [place] [address] Josué Cook MD [address] [place] [address] 8 [place] [address] documented as of this encounter Visit Diagnoses Not on filedocumented in this encounter Care Teams Deaf And Hard Of Hearing Teacher Relationship Specialty Start Date End Date Jarde Abrams MD PCP - General 08/28/11 07/16/22 documented as of this encounter
--- OUTSIDE RECORDS SUMMARY | 2024-08-18 10:42 | XMS_ITS | Encounter Summary ---
Author Organization [facility] Address [address] [facility] [place] [address] [place] [address] Care Team Providers Care Hospital Technician Name Role Phone Jared Abrams MD Primary Care Provider [phone] Encounter Details Date Type Department Care Team (Late Contact Info) Description 07/26/2005 Abstract [facility] CONVERSION [address] [place] [address] Jared Abrams MD 1212 [place] [address] Social History Tobacco Use Types Packs/Day Years [...] (Late Contact Info) Description 09/28/2024 2:30 PM DYE HOUSE SUPERVISOR Appointment [facility] One Day Services [address] [place] [address] Josué [place] [address] [place] [address] documented as of this encounter Visit Diagnoses Not on filedocumented in this encounter Care Teams Hospital Technician Relationship Specialty Start Date End Date Jared Abrams MD PCP - General 08/28/11 07/16/22 documented as of this encounter
--- OUTSIDE RECORDS SUMMARY | 2024-08-18 10:42 | XMS_ITS | Encounter Summary ---
Author Organization [facility] Address [address] [facility] [address] [place] [address] Care Team Providers Care Finishing Frame Runner Name Role Phone Jared Abrams MD Primary Care Provider [phone] Encounter Details Date Type Department Care Team (Late Contact Info) Description 03/22/2004 Abstract [facility] CONVERSION 9515 [place] [address] Scar Diaz MD [address] [place] [address] Social History Tobacco Use Types Packs/Day Years [...] (Late Contact Info) Description 09/28/2024 2:30 PM IP ARCHITECT Appointment [facility] Day [facility] [address] [place], [place] [phone] Josué Cook MD 49[address] [facility] 8 [place] [address] documented as of this encounter Visit Diagnoses Not on filedocumented in this encounter Care Teams Finishing Frame Runner Relationship Specialty Start Date End Date Jared Abrams MD PCP - General 08/28/11 07/16/22 documented as of this encounter
--- OUTSIDE RECORDS SUMMARY | 2024-08-18 10:42 | XMS_ITS | Encounter Summary ---
Author Organization [facility] Address [address] [facility] [place] [place] [address] [place] [address] Care Team Providers Care Chiller Operator Name Role Phone Jared Abrams MD Primary Care Provider [phone] Encounter Details Date Type Department Care Team (Late Contact Info) Description 07/18/2004 Abstract [facility] CONVERSION 9515 [place] [address] Jared Abrams MD [facility]2 [place] [address] Social History Tobacco Use Types Packs/Day Years [...] (Late Contact Info) Description 09/28/2024 2:30 PM BLACK MILL OPERATOR Appointment [facility] Day [facility] [address] [place], [place] [phone] Josué [place] [address] [place] [address] documented as of this encounter Visit Diagnoses Not on filedocumented in this encounter Care Teams Chiller Operator Relationship Specialty Start Date End Date Jared Abrams MD PCP - General 08/28/11 07/16/22 documented as of this encounter
--- OUTSIDE RECORDS SUMMARY | 2024-08-18 10:42 | XMS_ITS | Encounter Summary ---
Author Organization [facility] Address [address] [facility] [place] [address] [place] [address] Care Team Providers Care Patient Accounts Manager Name Role Phone Jared Abrams MD Primary Care Provider [phone] Encounter Details Date Type Department Care Team (Late Contact Info) Description 04/19/2004 Abstract [facility] CONVERSION 9515 [place] [address] Scar Diaz MD [address] [place] [address] Social History Tobacco Use Types Packs/Day Years [...] (Late Contact Info) Description 09/28/2024 2:30 PM RV REPAIR TECHNICIAN Appointment [facility] Day [facility] [address] [place], [place] [phone] Josué Cook MD 49[address] [facility] 8 [place] [address] documented as of this encounter Visit Diagnoses Not on filedocumented in this encounter Care Teams Patient Accounts Manager Relationship Specialty Start Date End Date Jared Abrams MD PCP - General 08/28/11 07/16/22 documented as of this encounter
--- OUTSIDE RECORDS SUMMARY | 2024-08-18 10:42 | XMS_ITS | Encounter Summary ---
Author Organization [facility] Address [address] [facility] [place] [address] [place] [address] Care Team Providers Care Drilling Foreman Name Role Phone Jared Abrams MD Primary Care Provider [phone] Encounter Details Date Type Department Care Team (Late Contact Info) Description 05/01/[address] [facility] CONVERSION [address] [facility] [place] [address] Scar Diaz MD [address] [place] [address] Social History Tobacco Use Types Packs/Day Years [...] (Late Contact Info) Description 09/28/2024 2:30 PM SPOT WORKER Appointment [facility] One Day Services [address] [place] [address] Josué Cook MD [address] [place] [address] 8 [place] [address] documented as of this encounter Visit Diagnoses Not on filedocumented in this encounter Care Teams Drilling Foreman Relationship Specialty Start Date End Date Jared Abrams MD PCP - General 08/28/11 07/16/22 documented as of this encounter
--- OUTSIDE RECORDS SUMMARY | 2024-08-18 10:42 | XMS_ITS | Encounter Summary ---
Author Organization [facility] Address [address] [facility] [place] [address] [place] [address] Care Team Providers Care Jewel Staker Name Role Phone Jared Abrams MD Primary Care Provider [phone] Encounter Details Date Type Department Care Team (Late Contact Info) Description 05/20/2008 Abstract [facility] CONVERSION 9515 [place] [address] Scar Diaz MD [address] [place] [address] Social History Tobacco Use Types Packs/Day Years [...] (Late Contact Info) Description 09/28/2024 2:30 PM COMPLIANCE ANALYST Appointment [facility] Day [facility] [address] [place], [place] [phone] Josué Cook MD 49[address] [facility] 8 [place] [address] documented as of this encounter Visit Diagnoses Not on filedocumented in this encounter Care Teams Jewel Staker Relationship Specialty Start Date End Date Jared Abrams MD PCP - General 08/28/11 07/16/22 documented as of this encounter
--- OUTSIDE RECORDS SUMMARY | 2024-08-18 10:42 | XMS_ITS | Encounter Summary ---
Author Organization [facility] Address [address] [place] [address] [place] [address] Care Team Providers Care Filter Filler Name Role Phone Jared Abrams MD Primary Care Provider [phone] Encounter Details Date Type Department Care Team (Late Contact Info) Description 12/15/2003 Abstract [facility] CONVERSION 9515 [place] [address] Scar Diaz MD [address] [place] [address] Social History Tobacco Use Types Packs/Day Years [...] (Late Contact Info) Description 09/28/2024 2:30 PM SHEETING PULLER Appointment [facility] Day [facility] [address] [place], [place] [phone] Josué Cook MD 4921 [facility] 8 [place] [address] documented as of this encounter Visit Diagnoses Not on filedocumented in this encounter Care Teams Filter Filler Relationship Specialty Start Date End Date Jared Abrams MD PCP - General 08/28/11 07/16/22 documented as of this encounter
--- OUTSIDE RECORDS SUMMARY | 2024-08-18 10:42 | XMS_ITS | Encounter Summary ---
Author Organization [facility] Address [address] [place] [address] [place] [address] Care Team Providers Care Alignment Mechanic Name Role Phone Jared Abrams MD Primary Care Provider [phone] Encounter Details Date Type Department Care Team (Late Contact Info) Description 04/23/2004 Abstract [facility] CONVERSION [address] [place] [address] Jared Abrams MD 1212 [place] [address] Social History Tobacco Use Types Packs/Day Years [...] (Late Contact Info) Description 09/28/2024 2:30 PM ENTERPRISE CLOUD ARCHITECT Appointment [facility] One Day Services [address] [place], [place] [phone] [place]ué [place] [address] [place] [address] documented as of this encounter Visit Diagnoses Not on filedocumented in this encounter Care Teams Alignment Mechanic Relationship Specialty Start Date End Date Jared Abrams MD PCP - General 08/28/11 07/16/22 documented as of this encounter
--- OUTSIDE RECORDS SUMMARY | 2024-08-18 10:42 | XMS_ITS | Encounter Summary ---
Author Organization [facility] Address [address] [place] [address] [place] [address] Care Team Providers Care Special Weapons And Tactics Officer Name Role Phone Jared Abrams MD Primary Care Provider [phone] Encounter Details Date Type Department Care Team (Late Contact Info) Description 08/07/2005 Abstract [facility] CONVERSION 9515 [place] [address] Jared Abrams MD [facility] [place] [address] Social History Tobacco Use Types Packs/Day Years [...] (Late Contact Info) Description 09/28/2024 2:30 PM DIRECTOR OF PROVIDER RELATIONS Appointment [facility] Day [facility] [address] [place], [place] [address] Josué [place] [address] [place] [address] documented as of this encounter Visit Diagnoses Not on filedocumented in this encounter Care Teams Special Weapons And Tactics Officer Relationship Specialty Start Date End Date Jared Abrams MD PCP - General 08/28/11 07/16/22 documented as of this encounter
--- OUTSIDE RECORDS SUMMARY | 2024-08-18 10:42 | XMS_ITS | Encounter Summary ---
Author Organization [facility] Address [address] [facility] [place] [address] [place] [address] Care Team Providers Care City Superintendent Name Role Phone Jared Abrams MD Primary Care Provider [phone] Encounter Details Date Type Department Care Team (Late st Contact Info) Description 04/19/2004 Abstract [facility] Clinics Conversion , [...] st Contact Info) Description 09/28/2024 2:30 PM FINANCIAL INSTITUTION VICE PRESIDENT Appointment [facility] One Day [facility] [address] [place] [address] Josué Cook MD [address] [address] documented as of this encounter Visit Diagnoses Not on filedocumented in this encounter Care Teams City Superintendent Relationship Specialty Start Date End Date Jared Abrams MD PCP - General 08/28/11 07/16/22 documented as of this encounter
--- OUTSIDE RECORDS SUMMARY | 2024-08-18 10:42 | XMS_ITS | Encounter Summary ---
Author Organization [facility] Address [address] [facility] [place] [address] [place] [address] Care Team Providers Care Linux Consultant Name Role Phone Jared Abrams MD Primary Care Provider Encounter Details Date Type Department Care Team (Late Contact Info) Description 05/08/2004 Abstract [facility] CONVERSION [address] [place] [address] Scar Diaz MD [address] [place] [address] Social History Tobacco Use Types Packs/Day Years [...] (Late Contact Info) Description 09/28/2024 2:30 PM INSURANCE VERIFICATION SPECIALIST Appointment [facility] One Day Services [address] [place] [address] Josué Cook MD [address] [place] [address] 8 [place] [address] documented as of this encounter Visit Diagnoses Not on filedocumented in this encounter Care Teams Linux Consultant Relationship Specialty Start Date End Date Jared Abrams MD PCP - General 08/28/11 07/16/22 documented as of this encounter
--- OUTSIDE RECORDS SUMMARY | 2024-08-18 10:42 | XMS_ITS | Encounter Summary ---
Author Organization [facility] Address [address] [facility] [place] [address] [place] [address] Care Team Providers Care Nurse Supervisor Name Role Phone Jared Abrams MD Primary Care Provider Encounter Details Date Type Department Care Team (Late Contact Info) Description 11/24/2007 Abstract [facility] CONVERSION 9515 [place] [address] Jared Abrams MD [facility]2 [place] [address] Social History Tobacco Use Types Packs/Day Years [...] (Late Contact Info) Description 09/28/2024 2:30 PM PROPERTY SITE MANAGER Appointment [facility] Day [facility] [address] [place], [place] [phone] Josué [place] [address] [place] [address] documented as of this encounter Visit Diagnoses Not on filedocumented in this encounter Care Teams Nurse Supervisor Relationship Specialty Start Date End Date Jared Abrams MD PCP - General 08/28/11 07/16/22 documented as of this encounter
--- OUTSIDE RECORDS SUMMARY | 2024-08-18 10:42 | XMS_ITS | Encounter Summary ---
Author Organization [facility] Address [address] [facility] [place] [address] [place] [address] Care Team Providers Care Hook And Eye Machine Operator Name Role Phone Jared Abrams MD Primary Care Provider [phone] Encounter Details Date Type Department Care Team (Late Contact Info) Description 05/19/2007 Abstract [facility] CONVERSION [address] [place] [address] Marii Rhodes PA-C [address] [place] [address] Social History Tobacco Use Types Packs/Day Years [...] st Contact Info) Description 09/28/2024 2:30 PM DISPLAY COORDINATOR Appointment [facility] One Day Services [address] [facility] [address] Josué Cook MD [address] [facility] 8 [place] [address] documented as of this encounter Visit Diagnoses Not on filedocumented in this encounter Care Teams Hook And Eye Machine Operator Relationship Specialty Start Date End Date Jared Abrams MD PCP - General 08/28/11 07/16/22 documented as of this encounter
--- OUTSIDE RECORDS SUMMARY | 2024-08-18 10:42 | XMS_ITS | Encounter Summary ---
Author Organization [facility] Address [address] [facility] [place] [address] [place] [address] Care Team Providers Care Voice Writing Reporter Name Role Phone Jared Abrams MD Primary Care Provider [phone] Encounter Details Date Type Department Care Team (Late Contact Info) Description 08/19/2006 Abstract [facility] CONVERSION [address] [place] [address] Scar Diaz MD [address] [place] [address] Social History Tobacco Use Types Packs/Day Years [...] (Late Contact Info) Description 09/28/2024 2:30 PM SPORTS MEDICINE TRAINER Appointment [facility] One Day Services [address] [place] [address] Josué Cook MD [address] [place] [address] 8 [place] [address] documented as of this encounter Visit Diagnoses Not on filedocumented in this encounter Care Teams Voice Writing Reporter Relationship Specialty Start Date End Date Jared Abrams MD PCP - General 08/28/11 07/16/22 documented as of this encounter
--- OUTSIDE RECORDS SUMMARY | 2024-08-18 10:42 | XMS_ITS | Encounter Summary ---
Author Organization [facility] Address [address] [place] [address] [place] [address] Care Team Providers Care Medical Billing Coder Name Role Phone Jared Arbams MD Primary Care Provider [phone] Encounter Details Date Type Department Care Team (Late Contact Info) Description 06/14/2004 Abstract [facility] CONVERSION 9515 [place] [address] Scar Diaz MD [address] [place] [address] Social History Tobacco Use Types Packs/Day Years [...] (Late Contact Info) Description 09/28/2024 2:30 PM IT INFRASTRUCTURE ENGINEER Appointment [facility] Day [facility] [address] [place], [place] [phone] Josué Cook MD 4921 [facility] 8 [place] [address] documented as of this encounter Visit Diagnoses Not on filedocumented in this encounter Care Teams Medical Billing Coder Relationship Specialty Start Date End Date Jared Abrams MD PCP - General 08/28/11 07/16/22 documented as of this encounter
--- OUTSIDE RECORDS SUMMARY | 2024-08-18 10:42 | XMS_ITS | Encounter Summary ---
Author Organization [facility] Address [address] [facility] [address] [place] [address] Care Team Providers Care Electric Fork Operator Name Role Phone Jared Abrams MD Primary Care Provider [phone] Encounter Details Date Type Department Care Team (Late Contact Info) Description 12/25/2004 Abstract [facility] CONVERSION [address] [place] [address] Scar Diaz MD [address] [place] [address] Social History Tobacco Use Types Packs/Day Years [...] (Late Contact Info) Description 09/28/2024 2:30 PM ADAPTED PHYSICAL EDUCATION SPECIALIST Appointment [facility] One Day Services [address] [place] [address] Josué Cook MD [address] [place] [address] 8 [place] [address] documented as of this encounter Visit Diagnoses Not on filedocumented in this encounter Care Teams Electric Fork Operator Relationship Specialty Start Date End Date Jared Abrams MD PCP - General 08/28/11 07/16/22 documented as of this encounter
--- OUTSIDE RECORDS SUMMARY | 2024-08-18 10:42 | XMS_ITS | Encounter Summary ---
Author Organization [facility] Address [address] [place] [address] [place] [address] Care Team Providers Care Literacy Coordinator Name Role Phone Jared Abrams MD Primary Care Provider [phone] Encounter Details Date Type Department Care Team (Late st Contact Info) Description 04/19/2004 Abstract [facility] Conversion Lauro Becerra MD [address] [id number] Social History Tobacco Use Types Packs/Day Years [...] DEVICES FROM FEMUR / SANTHOSH Consultants: SANTHOSH ULTING GROUP ANALYST documented in this encounter Plan of Treatment Upcoming Encounters Date Type Department Care Team (Late st Contact Info) Description 09/28/2024 2:30 PM CONSULTING GROUP ANALYST Appointment [facility] Day [facility] [address] [place] [address] Josué Cook MD [address] [facility] 8 [place] [address] documented as of this encounter Visit Diagnoses Not on filedocumented in this encounter Care Teams Literacy Coordinator Relationship Specialty Start Date End Date Jared Abrams MD PCP - General 08/28/11 07/16/22 documented as of this encounter
--- OUTSIDE RECORDS SUMMARY | 2024-08-18 10:42 | XMS_ITS | Encounter Summary ---
Author Organization [facility] Address [address] [facility] [place] [address] [place] [address] Care Team Providers Care Booker Name Role Phone Jared Abrams MD Primary Care Provider [phone] Encounter Details Date Type Department Care Team (Late Contact Info) Description 09/14/2007 Abstract [facility] [address] [place] [address] Jared Abrams MD [address] [place] [address] Social History Tobacco Use Types Packs/Day Years [...] (Late Contact Info) Description 09/28/2024 2:30 PM GENETIC SUPERVISOR Appointment [facility] One Day Services [address] [place], [place] [phone] [place]é [place] [address] [place] [address] documented as of this encounter Visit Diagnoses Not on filedocumented in this encounter Care Teams Booker Relationship Specialty Start Date End Date Jared Abrams MD PCP - General 08/28/11 07/16/22 documented as of this encounter
--- OUTSIDE RECORDS SUMMARY | 2024-08-18 10:42 | XMS_ITS | Encounter Summary ---
Author Organization [facility] Address [address] [facility] [place] [address] [place] [address] Care Team Providers Care Bible Worker Name Role Phone Jared Abrams MD Primary Care Provider [phone] Encounter Details Date Type Department Care Team (Late st Contact Info) Description 04/12/2004 Abstract [facility] Conversion , Generic ConversionMD Social [...] st Contact Info) Description 09/28/2024 2:30 PM JOINT TERMINAL ATTACK CONTROLLER Appointment [facility] One Day [facility] [address] [place] [address] Josué Cook MD [address] [address] documented as of this encounter Visit Diagnoses Not on filedocumented in this encounter Care Teams Bible Worker Relationship Specialty Start Date End Date Jared Abrams MD PCP - General 08/28/11 07/16/22 documented as of this encounter
--- OUTSIDE RECORDS SUMMARY | 2024-08-18 10:42 | XMS_ITS | Encounter Summary ---
Author Organization [facility] Address [address] [facility] [place] [address] [place] [address] Care Team Providers Care Regional Training Manager Name Role Phone Jared Abrams MD Primary Care Provider [phone] Encounter Details Date Type Department Care Team (Late Contact Info) Description 04/30/2004 Abstract [facility] CONVERSION [address] [facility] [place] [address] Scar Diaz MD [address] [place] [address] Social History Tobacco Use Types Packs/Day Years [...] (Late Contact Info) Description 09/28/2024 2:30 PM FIELD MARKETING COORDINATOR Appointment [facility] One Day Services [address] [place] [address] Josué Cook MD [address] [place] [address] 8 [place] [address] documented as of this encounter Visit Diagnoses Not on filedocumented in this encounter Care Teams Regional Training Manager Relationship Specialty Start Date End Date Jared Abrams MD PCP - General 08/28/11 07/16/22 documented as of this encounter
--- OUTSIDE RECORDS SUMMARY | 2024-08-18 10:43 | XMS_ITS | Encounter Summary ---
Author Organization [facility] Address [address] [facility] [place] [address] [place] [address] Care Team Providers Care Country Sales Manager Name Role Phone Jared Abrams MD Primary Care Provider [phone] Encounter Details Date Type Department Care Team (Late Contact Info) Description 11/24/2001 Abstract [facility] CONVERSION [address] [place] [address] , Generic ConversionMD Social History Tobacco Use [...] (Late Contact Info) Description 09/28/2024 2:30 PM NET MOBILE DEVELOPER Appointment [facility] Services [address] [place] [address] Josué Cook MD [address] [address] documented as of this encounter Visit Diagnoses Not on filedocumented in this encounter Care Teams Country Sales Manager Relationship Specialty Start Date End Date Jared Abrams MD PCP - General 08/28/11 07/16/22 documented as of this encounter
--- OUTSIDE RECORDS SUMMARY | 2024-08-18 10:43 | XMS_ITS | Encounter Summary ---
Author Organization [facility] Address [address] [facility] [place] [address] [place] [address] Care Team Providers Care Offbearer Name Role Phone Jared Abrams MD Primary Care Provider [phone] Servando Torre MD Primary Care Provider [phone] Encounter Details Date Type Department Care Team (Late st Contact Info) Description 09/26/2003 Abstract [facility] Conversion , Generic Conversion, Social History [...] st Contact Info) Description 09/28/2024 2:30 PM ALIGNMENT MECHANIC Appointment [facility] Day [facility] [address] [place] [address] Josué Cook MD [address] [facility] 8 [place] [address] documented as of this encounter Visit Diagnoses Not on filedocumented in this encounter Care Teams Offbearer Relationship Specialty Start Date End Date Jared Abrams MD PCP - General 08/28/11 07/16/22 Servando Torre MD [address] [facility] [address] [place] [address] PCP - General FAMILY PRACTICE 07/17/22 documented as of this encounter
--- OUTSIDE RECORDS SUMMARY | 2024-08-18 10:43 | XMS_ITS | Encounter Summary ---
Author Organization [facility] Address [address] [facility] [place] [address] [place] [address] Care Team Providers Care Wireless Technician Name Role Phone Jared Abrams MD Primary Care Provider [phone] Encounter Details Date Type Department Care Team (Late Contact Info) Description 01/21/1995 Abstract [facility] CONVERSION [address] [place] [address] , Generic ConversionMD Social History Tobacco Use [...] (Late Contact Info) Description 09/28/2024 2:30 PM AIRCRAFT MAINTENANCE TECHNICIAN Appointment [facility] Services [address] [place] [address] Josué Cook MD [address] [address] documented as of this encounter Visit Diagnoses Not on filedocumented in this encounter Care Teams Wireless Technician Relationship Specialty Start Date End Date Jared Abrams MD PCP - General 08/28/11 07/16/22 documented as of this encounter
--- OUTSIDE RECORDS SUMMARY | 2024-08-18 10:43 | XMS_ITS | Encounter Summary ---
Author Organization [facility] Address [address] [facility] [place] [address] [place] [address] Care Team Providers Care Irrigation Specialist Name Role Phone Jared Abrams MD Primary Care Provider Encounter Details Date Type Department Care Team (Late Contact Info) Description 08/20/2001 Abstract [facility] CONVERSION [address] [place] [address] , Generic ConversionMD Social History Tobacco Use [...] (Late Contact Info) Description 09/28/2024 2:30 PM NEW CAR INSPECTOR Appointment [facility] Services [address] [place] [address] Josué Cook MD [address] [address] documented as of this encounter Visit Diagnoses Not on filedocumented in this encounter Care Teams Irrigation Specialist Relationship Specialty Start Date End Date Jared Abrams MD PCP - General 08/28/11 07/16/22 documented as of this encounter
--- OUTSIDE RECORDS SUMMARY | 2024-08-18 10:43 | XMS_ITS | Encounter Summary ---
Author Organization [facility] Address [address] [facility] [place] [place] [address] [place] [address] Care Team Providers Care Brand Sales Consultant Name Role Phone Jared Abrams MD Primary Care Provider [phone] Encounter Details Date Type Department Care Team (Late Contact Info) Description 08/19/2000 Abstract [facility] CONVERSION [address] [place] [address] , Generic Conversion, Social History Tobacco Use [...] (Late Contact Info) Description 09/28/2024 2:30 PM MANAGER DISCOVERY Appointment [facility] [address] [place] [address] Josué Cook MD [address] [address] documented as of this encounter Visit Diagnoses Not on filedocumented in this encounter Care Teams Brand Sales Consultant Relationship Specialty Start Date End Date Jared Abrams MD PCP - General 08/28/11 07/16/22 documented as of this encounter
--- OUTSIDE RECORDS SUMMARY | 2024-08-18 10:43 | XMS_ITS | Encounter Summary ---
Author Organization [facility] Address [address] [facility] [place] [address] [place] [address] Care Team Providers Care Cable Braider Name Role Phone Jared Abrams MD Primary Care Provider [phone] Encounter Details Date Type Department Care Team (Late Contact Info) Description 06/09/2000 Abstract [facility] CONVERSION [address] [place] [address] , Generic ConversionMD Social History Tobacco Use [...] (Late Contact Info) Description 09/28/2024 2:30 PM TRAVEL PHYSICAL THERAPIST Appointment [facility] Services [address] [place] [address] Josué Cook MD [address] [address] documented as of this encounter Visit Diagnoses Not on filedocumented in this encounter Care Teams Cable Braider Relationship Specialty Start Date End Date Jared Abrams MD PCP - General 08/28/11 07/16/22 documented as of this encounter
--- OUTSIDE RECORDS SUMMARY | 2024-08-18 10:43 | XMS_ITS | Encounter Summary ---
Author Organization [facility] Address [address] [facility] [place] [address] [place] [address] Care Team Providers Care Winchman/Crane Operator Name Role Phone Jared Abrams MD Primary Care Provider [phone] Encounter Details Date Type Department Care Team (Late Contact Info) Description 05/09/2000 Abstract [facility] CONVERSION [address] [place] [address] , Generic ConversionMD Social History Tobacco Use [...] (Late Contact Info) Description 09/28/2024 2:30 PM CHEF HEAD Appointment [facility] Services [address] [place] [address] Josué Cook MD [address] [address] documented as of this encounter Visit Diagnoses Not on filedocumented in this encounter Care Teams Winchman/Crane Operator Relationship Specialty Start Date End Date Jared Abrams MD PCP - General 08/28/11 07/16/22 documented as of this encounter
--- OUTSIDE RECORDS SUMMARY | 2024-08-18 10:43 | XMS_ITS | Encounter Summary ---
Author Organization [facility] Address [address] [facility] [place] [address] [place] [address] Care Team Providers Care Adult Educator Name Role Phone Jared Abrams MD Primary Care Provider [phone] Encounter Details Date Type Department Care Team (Late st Contact Info) Description 09/22/2003 Abstract [facility] Bill Durham MD [address] [address] Social History Tobacco Use Types [...] FX W/INTR FIX FEMUR Consultants: DR TREVIZO EL INSPECTOR documented in this encounter Plan of Treatment Upcoming Encounters Date Type Department Care Team (Late st Contact Info) Description 09/28/2024 2:30 PM DIESEL INSPECTOR Appointment [facility] Day Services [address] [place] [address] Josué Cook MD [address] [address] documented as of this encounter Visit Diagnoses Not on filedocumented in this encounter Care Teams Adult Educator Relationship Specialty Start Date End Date Jared Abrams MD PCP - General 08/28/11 07/16/22 documented as of this encounter
--- OUTSIDE RECORDS SUMMARY | 2024-08-18 10:43 | XMS_ITS | Encounter Summary ---
Author Organization [facility] Address [address] [facility] [place] [address] [place] [address] Care Team Providers Care Stock Chaser Name Role Phone Jared Abrams MD Primary Care Provider [phone] Encounter Details Date Type Department Care Team (Late Contact Info) Description 10/28/2003 Abstract [facility] CONVERSION [address] [place] [address] Jared Abrams MD [address] [place] [address] Social History Tobacco Use Types Packs/Day Years [...] (Late Contact Info) Description 09/28/2024 2:30 PM PETROLEUM TRANSPORT DRIVER Appointment [facility] One Day Services [address] [place] [address] Josué Cook MD [address] [place] [address] documented as of this encounter Visit Diagnoses Not on filedocumented in this encounter Care Teams Stock Chaser Relationship Specialty Start Date End Date Jared Abrams MD PCP - General 08/28/11 07/16/22 documented as of this encounter
--- OUTSIDE RECORDS SUMMARY | 2024-08-18 10:43 | XMS_ITS | Encounter Summary ---
Author Organization [facility] Address [address] [facility] [place] [address] [place] [address] Care Team Providers Care Manager Intelligence Name Role Phone Jared Abrams MD Primary Care Provider [phone] Encounter Details Date Type Department Care Team (Late st Contact Info) Description 10/27/2003 Abstract [facility] Clinics Conversion , Generic ConversionMD [...] st Contact Info) Description 09/28/2024 2:30 PM OTHER SPATIAL SCIENTIST Appointment [facility] One Day [facility] [address] [place] [address] Josué Cook MD [address] [address] documented as of this encounter Visit Diagnoses Not on filedocumented in this encounter Care Teams Manager Intelligence Relationship Specialty Start Date End Date Jared Abrams MD PCP - General 08/28/11 07/16/22 documented as of this encounter
--- OUTSIDE RECORDS SUMMARY | 2024-08-18 10:43 | XMS_ITS | Encounter Summary ---
Author Organization [facility] Address [address] [facility] [place] [address] [place] [address] Care Team Providers Care Button Tacker Name Role Phone Jared Abrams MD Primary Care Provider [phone] Encounter Details Date Type Department Care Team (Late Contact Info) Description 11/11/2002 Abstract [facility] CONVERSION [address] [place] [address] , Generic ConversionMD Social History Tobacco Use [...] Contact Info) Description 09/28/2024 2:30 PM FIELD SPECIALIST Appointment [facility] Services [address] [place] [address] Josué Cook MD [address] [address] documented as of this encounter Visit Diagnoses Not on filedocumented in this encounter Care Teams Button Tacker Relationship Specialty Start Date End Date Jared Abrams MD PCP - General 08/28/11 07/16/22 documented as of this encounter
--- OUTSIDE RECORDS SUMMARY | 2024-08-18 10:43 | XMS_ITS | Encounter Summary ---
Author Organization [facility] Address [address] [place] [address] [place] [address] Care Team Providers Care Instrument Operator Name Role Phone Jared Abrams MD Primary Care Provider [phone] Encounter Details Date Type Department Care Team (Late st Contact Info) Description 09/22/2003 Abstract [facility] Clinics Conversion , Generic ConversionMD [...] st Contact Info) Description 09/28/2024 2:30 PM CASH POSTING CLERK Appointment Health system One Day [facility] [address] [place] [address] Josué Cook MD [address] [address] documented as of this encounter Visit Diagnoses Not on filedocumented in this encounter Care Teams Instrument Operator Relationship Specialty Start Date End Date Jared Abrams MD PCP - General 08/28/11 07/16/22 documented as of this encounter
--- OUTSIDE RECORDS SUMMARY | 2024-08-18 10:43 | XMS_ITS | Encounter Summary ---
Author Organization [facility] Address [address] [place] [address] [place] [address] Care Team Providers Care Host/Hostess Name Role Phone Jared Abrams MD Primary Care Provider [phone] Encounter Details Date Type Department Care Team (Late Contact Info) Description 05/20/1997 Abstract [facility] CONVERSION [address] [place] [address] , Generic ConversionMD Social History Tobacco Use [...] (Late Contact Info) Description 09/28/2024 2:30 PM FLOATING DERRICK OPERATOR Appointment [facility] Services [address] [place] [address] Josué Cook MD [address] [address] documented as of this encounter Visit Diagnoses Not on filedocumented in this encounter Care Teams Host/Hostess Relationship Specialty Start Date End Date Jared Abrams MD PCP - General 08/28/11 07/16/22 documented as of this encounter
--- OUTSIDE RECORDS SUMMARY | 2024-08-18 10:43 | XMS_ITS | Encounter Summary ---
Author Organization [facility] Address [address] [facility] [place] [address] [place] [address] Care Team Providers Care Fabric Finisher Name Role Phone Jared Abrams MD Primary Care Provider [phone] Encounter Details Date Type Department Care Team (Late Contact Info) Description 10/27/2003 Abstract [facility] CONVERSION [address] [place] [address] , Generic Conversion, Social History Tobacco Use [...] (Late Contact Info) Description 09/28/2024 2:30 PM EXT JS DEVELOPER Appointment [facility] [address] [place] [address] Josué Cook MD [address] [address] documented as of this encounter Visit Diagnoses Not on filedocumented in this encounter Care Teams Fabric Finisher Relationship Specialty Start Date End Date Jared Abrams MD PCP - General 08/28/11 07/16/22 documented as of this encounter
--- OUTSIDE RECORDS SUMMARY | 2024-08-18 10:43 | XMS_ITS | Encounter Summary ---
Author Organization [facility] Address [address] [facility] [place] [address] [place] [address] Care Team Providers Care Lead Recreation Assistant Name Role Phone Jared Abrams MD Primary Care Provider [phone] Encounter Details Date Type Department Care Team (Late Contact Info) Description 07/15/2003 Abstract [facility] CONVERSION [address] [place] [address] , Generic Conversion, Social History Tobacco Use [...] (Late Contact Info) Description 09/28/2024 2:30 PM SATELLITE COMMUNICATIONS ENGINEER Appointment [facility] [address] [place] [address] Josué Cook MD [address] [address] documented as of this encounter Visit Diagnoses Not on filedocumented in this encounter Care Teams Lead Recreation Assistant Relationship Specialty Start Date End Date Jared Abrams MD PCP - General 08/28/11 07/16/22 documented as of this encounter
--- OUTSIDE RECORDS SUMMARY | 2024-08-18 10:43 | XMS_ITS | Encounter Summary ---
Author Organization [facility] Address [address] [place] [address] [place] [address] Care Team Providers Care Director Marketing Analytics Name Role Phone Jared Abrams MD Primary Care Provider [phone] Encounter Details Date Type Department Care Team (Late Contact Info) Description 07/12/2003 Abstract [facility] CONVERSION [address] [place] [address] , Generic ConversionMD Social History Tobacco Use [...] (Late Contact Info) Description 09/28/2024 2:30 PM ODD PIECE CHECKER Appointment [facility] [address] [place] [address] Josué Cook MD [address] [address] documented as of this encounter Visit Diagnoses Not on filedocumented in this encounter Care Teams Director Marketing Analytics Relationship Specialty Start Date End Date Jared Abrams MD PCP - General 08/28/11 07/16/22 documented as of this encounter
--- OUTSIDE RECORDS SUMMARY | 2024-08-18 10:43 | XMS_ITS | Encounter Summary ---
Author Organization [facility] Address [address] [facility] [place] [address] [place] [address] Care Team Providers Care Car Stereo Installer Name Role Phone Jared Abrams MD Primary Care Provider [phone] Encounter Details Date Type Department Care Team (Late Contact Info) Description 10/07/2003 Abstract [facility] CONVERSION [address] [place] [address] , Generic ConversionMD Social History Tobacco Use [...] (Late Contact Info) Description 09/28/2024 2:30 PM CONFERENCE PLANNER Appointment [facility] Services [address] [place] [address] Josué Cook MD [address] [address] documented as of this encounter Visit Diagnoses Not on filedocumented in this encounter Care Teams Car Stereo Installer Relationship Specialty Start Date End Date Jared Abrams MD PCP - General 08/28/11 07/16/22 documented as of this encounter
--- OUTSIDE RECORDS SUMMARY | 2024-08-18 10:43 | XMS_ITS | Encounter Summary ---
Author Organization [facility] Address [address] [facility] [place] [address] [place] [address] Care Team Providers Care Blanking Machine Operator Name Role Phone Jared Abrams MD Primary Care Provider [phone] Encounter Details Date Type Department Care Team (Late Contact Info) Description 12/10/1993 Abstract [facility] CONVERSION [address] [place] [address] , Generic ConversionMD Social History Tobacco Use [...] (Late Contact Info) Description 09/28/2024 2:30 PM HYDRAULIC PUNCH PRESS OPERATOR Appointment [facility] Services [address] [place] [address] Josué Cook MD [address] [address] documented as of this encounter Visit Diagnoses Not on filedocumented in this encounter Care Teams Blanking Machine Operator Relationship Specialty Start Date End Date Jared Abrams MD PCP - General 08/28/11 07/16/22 documented as of this encounter
--- OUTSIDE RECORDS SUMMARY | 2024-08-18 10:43 | XMS_ITS | Encounter Summary ---
Author Organization [facility] Address [address] [facility] [place] [address] [place] [address] Care Team Providers Care Head Miller Name Role Phone Jared Abrams MD Primary Care Provider [phone] Encounter Details Date Type Department Care Team (Late Contact Info) Description 05/11/1996 Abstract [facility] CONVERSION [address] [place] [address] , Generic ConversionMD Social History Tobacco Use [...] (Late Contact Info) Description 09/28/2024 2:30 PM TOOL MAKER APPRENTICE Appointment [facility] [address] [place] [address] Josué Cook MD [address] [address] documented as of this encounter Visit Diagnoses Not on filedocumented in this encounter Care Teams Head Miller Relationship Specialty Start Date End Date Jared Abrams MD PCP - General 08/28/11 07/16/22 documented as of this encounter
--- OUTSIDE RECORDS SUMMARY | 2024-08-18 10:43 | XMS_ITS | Encounter Summary ---
Author Organization [facility] Address [address] [facility] [place] [address] [place] [address] Care Team Providers Care Spine Supervisor Name Role Phone Jared Abrams MD Primary Care Provider [phone] Encounter Details Date Type Department Care Team (Late Contact Info) Description 08/04/1999 Abstract [facility] CONVERSION [address] [place] [address] , Generic Conversion, Social History Tobacco Use [...] (Late Contact Info) Description 09/28/2024 2:30 PM EXCAVATING CONTRACTOR Appointment [facility] [address] [place] [address] Josué Cook MD [address] [address] documented as of this encounter Visit Diagnoses Not on filedocumented in this encounter Care Teams Spine Supervisor Relationship Specialty Start Date End Date Jared Abrams MD PCP - General 08/28/11 07/16/22 documented as of this encounter
--- OUTSIDE RECORDS SUMMARY | 2024-08-18 10:43 | XMS_ITS | Encounter Summary ---
Author Organization [facility] Address [address] [facility] [place] [address] [place] [address] Care Team Providers Care Outpatient Physical Therapist Name Role Phone Jared Abrams MD Primary Care Provider [phone] Encounter Details Date Type Department Care Team (Late st Contact Info) Description 10/06/2003 Abstract [facility] Conversion , Generic ConversionMD Social History [...] st Contact Info) Description 09/28/2024 2:30 PM ORACLE EBS DEVELOPER Appointment [facility] One Day [facility] [address] [place] [address] Josué Cook MD [address] [address] documented as of this encounter Visit Diagnoses Not on filedocumented in this encounter Care Teams Outpatient Physical Therapist Relationship Specialty Start Date End Date Jared Abrams MD PCP - General 08/28/11 07/16/22 documented as of this encounter
--- OUTSIDE RECORDS SUMMARY | 2024-08-18 10:43 | XMS_ITS | Encounter Summary ---
Author Organization [facility] Address [address] [facility] [address] [place] [address] Care Team Providers Care Core Analyst Name Role Phone Jared Abrams MD Primary Care Provider [phone] Encounter Details Date Type Department Care Team (Late Contact Info) Description 07/26/1998 Abstract [facility] CONVERSION [address] [place] [address] , Generic Conversion, Social History Tobacco Use [...] (Late Contact Info) Description 09/28/2024 2:30 PM SHIPPING HAND Appointment [facility] [address] [place] [address] Josué Cook MD [address] [address] documented as of this encounter Visit Diagnoses Not on filedocumented in this encounter Care Teams Core Analyst Relationship Specialty Start Date End Date Jared Abrams MD PCP - General 08/28/11 07/16/22 documented as of this encounter
--- OUTSIDE RECORDS SUMMARY | 2024-08-18 10:43 | XMS_ITS | Encounter Summary ---
Author Organization [facility] Address [address] [facility] [address] [place] [address] Care Team Providers Care Citrus Picker Name Role Phone Jared Abrams MD Primary Care Provider Encounter Details Date Type Department Care Team (Late Contact Info) Description 05/29/1998 Abstract [facility] CONVERSION [address] [place] [address] , Generic ConversionMD Social History Tobacco Use [...] (Late Contact Info) Description 09/28/2024 2:30 PM STAFFING ASSOCIATE Appointment [facility] [address] [place] [address] Josué Cook MD [address] [address] documented as of this encounter Visit Diagnoses Not on filedocumented in this encounter Care Teams Citrus Picker Relationship Specialty Start Date End Date Jared Abrams MD PCP - General 08/28/11 07/16/22 documented as of this encounter
--- OUTSIDE RECORDS SUMMARY | 2024-08-18 10:43 | XMS_ITS | Encounter Summary ---
Author Organization [facility] Address [address] [facility] [place] [address] [place] [address] Care Team Providers Care Assurance Sourcing Manager Name Role Phone Jared Abrams MD Primary Care Provider [phone] Encounter Details Date Type Department Care Team (Late st Contact Info) Description 11/17/2003 Abstract [facility] Conversion , Generic ConversionMD Social History [...] st Contact Info) Description 09/28/2024 2:30 PM AGRISCIENCE INSTRUCTOR Appointment [facility] One Day [facility] [address] [place] [address] Josué Cook MD [address] [address] documented as of this encounter Visit Diagnoses Not on filedocumented in this encounter Care Teams Assurance Sourcing Manager Relationship Specialty Start Date End Date Jared Abrams MD PCP - General 08/28/11 07/16/22 documented as of this encounter
--- OUTSIDE RECORDS SUMMARY | 2024-08-18 10:43 | XMS_ITS | Encounter Summary ---
Author Organization [facility] Address [address] [facility] [place] [address] [place] [address] Care Team Providers Care Direct Care Worker Name Role Phone Jared Abrams MD Primary Care Provider [phone] Encounter Details Date Type Department Care Team (Late Contact Info) Description 06/05/1999 Abstract [facility] CONVERSION [address] [place] [address] , Generic ConversionMD Social History Tobacco Use [...] (Late Contact Info) Description 09/28/2024 2:30 PM PASTEURIZING SUPERVISOR Appointment [facility] [address] [place] [address] Josué Cook MD [address] [address] documented as of this encounter Visit Diagnoses Not on filedocumented in this encounter Care Teams Direct Care Worker Relationship Specialty Start Date End Date Jared Abrams MD PCP - General 08/28/11 07/16/22 documented as of this encounter
--- OUTSIDE RECORDS SUMMARY | 2024-08-18 10:43 | XMS_ITS | Encounter Summary ---
Author Organization [facility] Address [address] [facility] [place] [address] [place] [address] Care Team Providers Care Collection Agent Name Role Phone Jared Abrams MD Primary Care Provider Encounter Details Date Type Department Care Team (Late Contact Info) Description 08/18/2001 Abstract [facility] CONVERSION [address] [place] [address] , Generic ConversionMD Social History Tobacco Use [...] (Late Contact Info) Description 09/28/2024 2:30 PM CERTIFIED SURGICAL TECH/FIRST ASSISTANT Appointment [facility] [address] [place] [address] Josué Cook MD [address] [address] documented as of this encounter Visit Diagnoses Not on filedocumented in this encounter Care Teams Collection Agent Relationship Specialty Start Date End Date Jared Abrams MD PCP - General 08/28/11 07/16/22 documented as of this encounter
--- OUTSIDE RECORDS SUMMARY | 2024-08-18 10:43 | XMS_ITS | Encounter Summary ---
Author Organization [facility] Address [address] [facility] [place] [address] [place] [address] Care Team Providers Care Puller Machine Name Role Phone Jared Abrams MD Primary Care Provider [phone] Encounter Details Date Type Department Care Team (Late Contact Info) Description 10/04/2003 Abstract [facility] CONVERSION [address] [place] [address] , Generic ConversionMD Social History Tobacco Use [...] (Late Contact Info) Description 09/28/2024 2:30 PM ALUMINUM WELDER Appointment [facility] [address] [place] [address] Josué Cook MD [address] [address] documented as of this encounter Visit Diagnoses Not on filedocumented in this encounter Care Teams Puller Machine Relationship Specialty Start Date End Date Jared Abrams MD PCP - General 08/28/11 07/16/22 documented as of this encounter
--- OUTSIDE RECORDS SUMMARY | 2024-08-18 10:43 | XMS_ITS | Encounter Summary ---
Author Organization [facility] Address [address] [facility] [place] [address] [place] [address] Care Team Providers Care Turpentine Distiller Name Role Phone Jared Abrams MD Primary Care Provider [phone] Encounter Details Date Type Department Care Team (Late Contact Info) Description 09/22/2003 Abstract [facility] CONVERSION [address] [place] [address] Bill Bhatia MD [address] [facility] [address] [place] [address] Social History Tobacco Use Types [...] (Late Contact Info) Description 09/28/2024 2:30 PM ASSISTANT SALES DIRECTOR Appointment [facility] [address] [place], [place] [address] Josué Cook MD [address] [address] documented as of this encounter Visit Diagnoses Not on filedocumented in this encounter Care Teams Turpentine Distiller Relationship Specialty Start Date End Date Jared Abrams MD PCP - General 08/28/11 07/16/22 documented as of this encounter
--- OUTSIDE RECORDS SUMMARY | 2024-08-18 10:43 | XMS_ITS | Encounter Summary ---
Author Organization [facility] Address [address] [place] [address] [place] [address] Care Team Providers Care Tip Length Checker Name Role Phone Jared Abrams MD Primary Care Provider [phone] Encounter Details Date Type Department Care Team (Late Contact Info) Description 09/26/2003 Abstract [facility] CONVERSION [address] [place] [address] , Generic ConversionMD Social History Tobacco Use [...] (Late Contact Info) Description 09/28/2024 2:30 PM ONLINE PROJECT MANAGER Appointment [facility] [address] [place] [address] Josué Cook MD [address] [address] documented as of this encounter Visit Diagnoses Not on filedocumented in this encounter Care Teams Tip Length Checker Relationship Specialty Start Date End Date Jared Abrams MD PCP - General 08/28/11 07/16/22 documented as of this encounter
--- OUTSIDE RECORDS SUMMARY | 2024-08-18 10:43 | XMS_ITS | Encounter Summary ---
Author Organization [facility] Address [address] [facility] [place] [address] [place] [address] Care Team Providers Care Youth Coordinator Name Role Phone Jared Abrams MD Primary Care Provider [phone] Encounter Details Date Type Department Care Team (Late Contact Info) Description 10/06/2003 Abstract [facility] CONVERSION [address] [place] [address] , Generic Conversion, Social History Tobacco Use [...] (Late Contact Info) Description 09/28/2024 2:30 PM PACKAGING ASSOCIATE Appointment [facility] [address] [place] [address] Josué Cook MD [address] [address] documented as of this encounter Visit Diagnoses Not on filedocumented in this encounter Care Teams Youth Coordinator Relationship Specialty Start Date End Date Jared Abrams MD PCP - General 08/28/11 07/16/22 documented as of this encounter
--- OUTSIDE RECORDS SUMMARY | 2024-08-18 10:57 | XMS_ITS | Encounter Summary ---
Author Organization [facility] Address [address] [place] [address] Phone Care Team Providers Care Information Resource Consultant Name Role Phone Servando Torre MD Primary Care Provider [phone] Mariela Denton MD Unavailable [phone] Lexis Barroso OD Unavailable [phone] Encounter Details Date Type Department Care Team (Late st Contact Info) Description 07/28/2024 Orders Only [facility] [address] [facility] 6th [address] [place] [address] Chelsie Francisco NP [address] [place] [address] Social History Tobacco Use Types Packs/Day Years [...] on file Legal Sex Female 9:30 AM USER EXPERIENCE ARCHITECT Gender Identity Female 04/05/2022 6:17 PM CDT Sexual Orientation Straight 04/05/2022 6: 17 PM CDT documented as of this encounter Plan of Treatment Not on file documented as of this encounter Visit Diagnoses Not on filedocumented in this encounter Care Teams Information Resource Consultant Relationship Specialty Start Date End Date Servando Torre MD [facility] [address] PCP - General Family Medicine 06/19/22 Mariela Denton MD [address] [facility] [address] [place] [address] Referring Physician Gastroenterology 06/19/22 Lexis Barroso OD [address] [place] [address] Paralegal Secretary 09/19/22 documented as of this encounter
--- OUTSIDE RECORDS SUMMARY | 2024-08-18 10:57 | XMS_ITS | Encounter Summary ---
Author Organization [facility] Address [address] [place] [address] Care Team Providers Care Senior Web Engineer Name Role Phone Servando Torre MD Primary Care Provider [phone] Mariela Denton MD Unavailable [phone] Lexis Barroso OD Unavailable [phone] Encounter Details Date Type Department Care Team (Latest Contact Info) Description 08/03/2024 4:00 PM MARSHMALLOW MACHINE OPERATOR - 08/03/2024 11:59 PM MARSHMALLOW MACHINE OPERATOR Hospital Encounter [facility] [address] [place] [address] Frequent falls; Syncope, unspecified syncope type; Memory impairment; Essential (primary) hypertension Discharge Disposition: Discharge to home or self [...] on file Legal Sex Female 9:30 AM MARSHMALLOW MACHINE OPERATOR Gender Identity Female 04/05/2022 6:17 [...] nightly 01/01/2024 vedolizumab (ENTYVIO) 300 mg recon solnIndications:Cpr Ambulance Driver roberto ulcerative colitis, unspecified complication (HCC) Infuse 5 mL (300 mg total) into a venous catheter every 8 (eight) weeks Infused at: [facility] ([facility] order in [facility] under 'Procedures' tab). 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),Carotid stenosis, asymptomatic, bilateral Take 1 tablet (80 mg total) by mouth nightly 30 tablet 3 07/05/2024 5 rivastigmine (EXELON) 4.6 mg/[address] 4.6 mg on the skin daily 30 patch 6 07/12/2024 5 documented as of this encounter Discharge Disposition Disposition Code Departure Means Destination Discharge to home or self care documented in this encounter Plan of Treatment Not on file documented as of this encounter Procedures Procedure Name Priority Date/Time Associated Diagnosis Comments METHYLMALONIC ACID, SERUM Routine 08/03/2024 8:30 AM MARSHMALLOW MACHINE OPERATOR Frequent falls Syncope, unspecified syncope type Memory impairment HOMOCYSTEINE Routine 08/03/2024 8:30 AM MARSHMALLOW MACHINE OPERATOR Frequent falls Syncope, unspecified syncope type Memory impairment Essential (primary) hypertension VITAMIN B12 Routine 08/03/2024 8:30 AM MARSHMALLOW MACHINE OPERATOR Frequent falls Syncope, unspecified syncope type Memory impairment documented in this encounter Results * Methylmalonic acid, serum (08/03/2024 8:30 AM MARSHMALLOW MACHINE OPERATOR) MMA 0.25 <=0.40 nmol/mL [place] ref Lab Comment: ADDITIONAL INFORMATION This test was developed and its performance characteristics determined by [facility] in a manner consistent with CLIA requirements. This test has not been cleared or approved by the U.S. Food and Drug Administration. Test Performed by: [address] [address] [address] Light Servicer Helper: Liu Davis Ph.D.; CLIA# [id number] Blood 08/03/2024 8:30 AM MARSHMALLOW MACHINE OPERATOR 08/03/2024 4:21 PM MARSHMALLOW MACHINE OPERATOR Chelsie Francisco NP LAB BLOOD ORDERABLES F inal Result Performing Organization Address City/[facility] Co de Phone Number AILEEN MATTHEW [address] [address] [facility] [employer] [place], [place] [id number] [place] ref Lab * Homocysteine (08/03/2024 8:30 AM MARSHMALLOW MACHINE OPERATOR) Homocysteine 14.0 0.0 - 15.0 mcmol/L Comment:Testing performed by : [facility], [address] [facility] [place] [address] Blood 08/03/2024 8:30 AM MARSHMALLOW MACHINE OPERATOR 08/04/2024 10:21 AM MARSHMALLOW MACHINE OPERATOR Chelsie Francisco NP LAB BLOOD ORDERABLES F inal Result Performing Organization Address City/[facility] Co de Phone Number AILEEN TIFF [address] Department [employer] [place], [place] [id number] * Vitamin B12 (08/03/2024 8:30 AM MARSHMALLOW MACHINE OPERATOR) Vitamin B12 350 230 - 1,250 pg/mL Blood 08/03/2024 8:30 AM MARSHMALLOW MACHINE OPERATOR 08/03/2024 4:21 PM MARSHMALLOW MACHINE OPERATOR Chelsie Francisco NP LAB BLOOD ORDERABLES F inal Result Performing Organization Address City/[facility]/ZIP Co de Phone Number AILEEN TIFF [address] Department [place] [address] documented in this encounter Visit Diagnoses Diagnosis Frequent falls Syncope, unspecified syncope type Memory impairment Memory loss Essential (primary) hypertension Unspecified essential hypertension documented in this encounter Care Teams Senior Web Engineer Relationship Specialty Start Date End Date Servando Torre MD [address] [facility] [address] [place] [address] PCP - General Family Medicine 06/19/22 Mariela Denton MD [address] [place] [address] Referring Physician Gastroenterology 06/19/22 Lexis Barroso OD [address] [place] [address] Bobbin Fixer 09/19/22 documented as of this encounter
--- OUTSIDE RECORDS SUMMARY | 2024-08-18 10:57 | XMS_ITS | Clinical Summary ---
Author Organization [facility] Address [address] [place] [address] Care Team Providers Care Fire Support Specialist Name Role Phone Servando Torre MD Primary Care Provider [phone] Mariela Denton MD Unavailable [phone] Lexis Barroso OD Unavailable [phone] Allergies Active Allergy Reactions Criticality Noted Date Comments Penicillins Hives High 01/30/2023 She thinks as an adult but is unsure Medications multivitamin capsule Take 1 capsule by mouth daily Suspended cholecalciferol (VITAMIN D-3) 2000 unit tabletIndications: Low serum vitamin D Take 1 tablet (2,000 Units total) by mouth daily Low Vitamin D level from 05/30/2022. 90 tablet 3 05/31/20 22 Suspended OneTouch Ultra Test stripIndications:P rediabetes 1 each by other route daily To check blood glucose 50 each 11 08/16/19 23 Suspended OneTouch Delica Plus Lancet 33 gauge miscIndications:Pr ediabetes 1 each by other route daily To check glucose with glucose monitor and strip 100 each 3 08/16/19 23 Suspended amLODIPine (NORVASC) 5 mg tablet Take 1 tablet (5 mg total) by mouth daily 90 tablet 1 01/15/20 23 Suspended ferrous sulfate ER 324 mg (65 mg iron) EC tabletIndications: Iron Deficiency Anemia Take 1 tablet (324 mg total) by mouth daily with breakfast 90 tablet 1 04/01/20 23 Suspended vedolizumab (ENTYVIO) 300 mg recon solnIndications:Ch ronic ulcerative colitis, unspecified complication (HCC) Infuse 5 mL (300 mg total) into a venous catheter every 8 (eight) weeks Infused at: [facility] ([facility] order in [facility] under 'Procedures' tab). 1 each 5 04/29/20 23 Suspended metFORMIN XR (GLUCOPHAGE XR) 750 mg 24 hr tablet Take 1 tablet (750 mg total) by mouth daily with breakfast 30 tablet 11 05/16/20 23 Suspended metoprolol tartrate (LOPRESSOR) 50 mg immediate release tablet Take 1 tablet (50 mg total) by mouth 2 (two) times a day 180 tablet 1 08/22/19 24 Suspended aspirin 81 mg enteric coated tablet Take 1 tablet (81 mg total) by mouth daily 90 tablet 3 08/27/19 24 025 Suspended calcium citrate-vitamin D3 (Citracal + D Maximum) 315 mg-6.25 mcg (250 unit) per tablet Take 1 tablet by mouth daily 90 tablet 3 08/27/19 24 025 Suspended mesalamine (APRISO) 0.375 gram 24 hr capsuleIndications :Ulcerative Colitis Take 2 capsules by mouth in the morning and 2 capsules in the evening 120 capsule 5 10/29/19 24 Suspended melatonin tablet Take 1 tablet (3 mg total) by mouth 3 (three) times a week Suspended losartan (COZAAR) 100 mg tabletIndications: Hypertension associated with diabetes (HCC) Take 1 tablet (100 mg total) by mouth nightly 01/01/[address] (PROTONIX) 40 mg EC tabletIndications: Gastroesophageal reflux disease without esophagitis Take 1 tablet (40 mg total) by mouth nightly 01/01/20 24 Suspended lamoTRIgine (LaMICtal) 200 mg tablet 04/27/20 24 Suspended pravastatin (PRAVACHOL) 80 mg tabletIndications: Mixed diabetic hyperlipidemia associated with type 2 diabetes mellitus (HCC),Carotid stenosis, asymptomatic, bilateral Take 1 tablet (80 mg total) by mouth nightly 30 tablet 3 07/05/20 24 025 Suspended rivastigmine (EXELON) 4.6 mg/[address] 4.6 mg on the skin daily 30 patch 6 12/ 025 Suspended Active Problems Problem Noted Date Diagnosed Date [...] epilepticus 03/17/2023 At risk for falls 03/13/2023 custodial (current) use of oral hypoglycemic fuentes gs [...] Type 2 diabetes mellitus without complications ( [facility]/HCC) 09/19/2022 Chronic gout, unspecified, without tophus (tophi ) 09/19/2022 Encounter for Medicare annual wellness exam 05/29 Assessment & Plan (07/05/2024 3:20 PM COUNTY BAILIFF): A(n) yearly Medicare Annual Wellness Visit has been performed today. Radha Allen is not up to date on [...] months Assessment & Plan (06/26/2023 2:02 PM COUNTY BAILIFF): A(n) yearly Medicare Annual Wellness Visit has been performed today. Radha Allen is up to date on screening [...] months Assessment & Plan (06/23/2022 3:06 PM COUNTY BAILIFF): A(n) initial Medicare Annual Wellness Visit has been performed today. Radha Allen is not up to date on [...] (06/19/2022): Added automatically from request for surgery [id number] Ear ringing 03/03/2013 Asymmetrical sensorineural hearing loss 03/03/20 13 Stress fracture 07/07/2012 Arthralgia of hip 02/06/2011 Resolved Problems Problem Noted Date Diagnosed Date Resolved Date Hospital discharge follow-up 06/11/2023 08/07/2023 Assessment & Plan (06/11/2023 1:42 PM COUNTY BAILIFF): I have reviewed the hospital record, medications, and relevant testing from Radha Allen's recent admission. Complications and discharge plan [...] Encounters Date Type Department Care Team Description 08/17/2024 8:26 AM COUNTY BAILIFF - Present Hospital Encounter [address] [address] Adria Burleson MD 08/17/2024 8:00 AM COUNTY BAILIFF Ancillary Procedure [address] [address] Rene De La O MT Seizure (HCC) 08/16/2024 Orders Only [facility] Primary Care at [address] [address] Silvestre Ahn MD 08/13/2024 Telephone [facility] Neurodiagnostics [address] [place] [address] Karen Lee 08/12/2024 Telephone [facility] Epilepsy [address] [facility] 6th [place] [address] [place] [address] Ute Miller MD 08/12/2024 Orders Only [facility] Primary Care at [address] [phone] Silvestre Ahn MD 08/03/2024 4:00 PM COUNTY BAILIFF - 08/03/2024 11:59 PM [place] BAILIFF Hospital Encounter [address] [address] Frequent falls; Syncope, unspecified syncope type; Memory impairment; Essential (primary) hypertension Discharge Disposition: Discharge to home or self care 08/03/2024 8:45 AM [place] BAILIFF Lab [facility] Outpatient Lab at [address] [phone] 08/03/2024 8:00 AM [place] BAILIFF Ancillary Procedure [facility] Vascular and Vein Surgery at [address] [place] [phone] Carotid stenosis, asymptomatic, bilateral 07/28/2024 Orders Only [facility] [address] [facility] 6th Floor [address] [place] [address] Chelsie Francisco NP 07/24/2024 Orders Only [address] 6th Floor [address] [place] [address] Chelsie Francisco NP Frequent falls (Primary Dx); Syncope, unspecified syncope type; Memory impairment; Essential (primary) hypertension; Sleep walking 07/22/2024 7:00 PM [place] BAILIFF Office Visit [facility] at [address] [phone] Lexis Chaves PA Encounter for staple removal (Primary Dx) 07/14/2024 Telephone [facility] Primary Care at [address] [phone] Results 07/12/2024 Orders Only [address] [place] [address] Chelsie Francisco NP 07/12/2024 Orders Only [facility] Primary Care at [address] [phone] Marcell Rucker MD 07/09/[address] [place] [address] Adria Burleson MD Medication Problem; Request For Order(s) 07/08/2024 3:15 PM [place] BAILIFF Office Visit [address] 6th [address] [place] [address] Chelsie Francisco NP Somnolence, daytime (Primary Dx); Memory impairment; Frequent falls; Anxiety 07/05/2024 3:00 PM COUNTY BAILIFF Office Visit [facility] Primary Care at [address] [phone] Servando Torre MD Encounter for Medicare annual wellness exam (Primary Dx); Mixed diabetic hyperlipidemia associated with type 2 diabetes mellitus (HCC); Hypertension associated with diabetes (HCC); Gastroesophageal reflux disease without esophagitis; At risk for falls; Carotid stenosis, asymptomatic, bilateral 07/02/2024 10:20 AM [place] BAILIFF - 07/02/2024 11:59 PM [place] BAILIFF Hospital Encounter [facility] [address] [place] [address] Hypertension associated with diabetes (HCC); Seizure (HCC); Weakness generalized Discharge Disposition: Discharge to home or self care 07/02/2024 10:15 AM [place] BAILIFF Lab [facility] Outpatient Lab at [address] [address] Encounter for Medicare annual wellness exam (Primary Dx) 06/29/2024 Orders Only [facility] [place] [address] [facility] 6th Floor [address] [place] [phone] Kimberly Nicolas MD Weakness generalized (Primary Dx) 06/18/2024 3:00 PM [place] BAILIFF Ancillary Procedure [facility] Imaging at [address] [phone] Accidental fall, subsequent encounter 06/18/2024 2:55 PM COUNTY BAILIFF Ancillary Procedure [facility] Imaging at [address] [address] Accidental fall, subsequent encounter 06/18/2024 2:30 PM COUNTY BAILIFF Office Visit [facility] Care at [address] [phone] Pricilla Olguin NP Accidental fall, subsequent encounter (Primary Dx) 05/28/2024 Telephone [facility] Primary Care at [address] [address] Servando Torre MD Medical Question/Miscellaneo us 05/19/2024 4:30 PM CDT Office Visit [facility] [place] [address] [facility] 6th [place] [address] [place] [phone] Kimberly Nicolas MD Vascular dementia without behavioral disturbance (HCC) (Primary Dx) 05/18/2024 Orders Only [facility] Gastroenterology [address] [facility] 12th [place] [address] [place] [address] Ayala Mobley RN Chronic ulcerative colitis, unspecified complication (HCC) (Primary Dx); High risk medications (not anticoagulants) long-term use; Healthcare maintenance; Encounter for screening for other viral diseases from Last 3 Months Immunizations Name Administration [...] fibrillation Mother Akilah Mccarthy Breast cancer Mother Tariksonido Alonso Fabio Stroke Mother Akilah Mccarthy afib Mother Akilah [...] making you feel afraid or unsafe? Denies 08/17/2024 Comments No Sex and Gender Information Value Date Recorded Sex Assigned at Not on file Legal Sex Female 9:30 AM COUNTY BAILIFF Gender Identity Female 04/05/2022 6:17 PM CDT Sexual Orientation Straight 04/05/2022 6: 17 PM CDT Obstetrics History Last Filed Vital Signs Vital Sign Reading Time Taken Comments Blood Pressure 117/55 08/18/2024 9:45 AM [place] BAILIFF Pulse 65 08/18/2024 9:45 AM COUNTY BAILIFF Temperature 36.4 ??C (97.5 ??F) 08/18/2024 7:00 AM CS T Respiratory Rate 18 08/18/2024 7:00 AM COUNTY BAILIFF Oxygen Saturation 94% 08/18/2024 7:00 AM COUNTY BAILIFF Inhaled Oxygen Concentration - - Weight 65.8 kg (145 lb 1 oz) 08/17/2024 6:45 PM COUNTY BAILIFF Height 157.5 cm (5' 2.01 ) 08/17/2024 6:45 PM CS T Body Mass Index 26.53 08/17/2024 6:45 PM COUNTY BAILIFF Plan of Treatment Health Maintenance Due Date Last Done Comments Hepatitis B Screening 1963 Covid-19 Vaccine ( season) 2024 05/30/2022, 05/18/2021, 10/20/2020, Additional history exists Dilated Eye Exam 06/25/2024 06/25/2023, 11/29/2022 Osteoporosis Screening-Bone Density Scan 12/12/2024 12/12/2022, 12/12/2022 Hemoglobin A1C 12/31/2024 07/02/2024, 09/2023, 01/01/2024, Additional history exists Foot Exam 04/01/2025 04/01/2024, 11/2023, 12/19/2022 Albumin Creatinine Ratio, Urine 07/02/2025 07/02/2024, 03/21/2023 Lipid Panel 07/02/2025 07/02/2024, 09/2023, 09/30/2023, Additional history exists eGFR 07/02/2025 07/02/2024, 09/2023, 09/30/2023, Additional history exists Depression Screening 07/05/2025 07/05/2024, 04/01/2024, 01/19/2024, Additional history exists Well Visit 65+ 07/05/2025 07/05/2024, 05/30, 06/19/2022 DTaP/Tdap/Td Vaccine (1 - Tdap) 07/27/2025 Postponed from 1954 (Insurance / Financial) Fall Risk Assessment 08/17/2025 08/17/2024, 07/05/2024, 01/19/2024, Additional history exists Zoster Vaccine Completed 08/01/2020, 05/30/2020 Pneumococcal vaccine 65+ Completed 03/27/2023 Influenza Vaccine Completed 05/05/2024, , 05/06/2022 Procedures * The patient is currently admitted. The information in this section might not be complete until the patient is discharged. Procedure Name Priority Date/Time Associated Diagnosis Comments POCT GLUCOSE DEVICE Routine 08/18/2024 8 :02 AM COUNTY BAILIFF BRAIN, BRAIN STEM MAGNETIC RESONANCE (MR) IMAGING Schedule Routine, Read Routine (OP Routine) 08/12/2024 1:35 PM COUNTY BAILIFF XR CHEST 1 VIEW Schedule Routine, Read Routine (OP Routine) 08/11/2024 9:53 AM COUNTY BAILIFF US CAROTIDS DUPLEX BILATERAL Schedule Routine, Read Routine (OP Routine) 08/03/2024 8:46 AM COUNTY BAILIFF Carotid stenosis, asymptomatic, bilateral METHYLMALONIC ACID, SERUM Routine 08/03/2024 8:30 AM [place] BAILIFF Frequent falls Syncope, unspecified syncope type Memory impairment HOMOCYSTEINE Routine 08/03/2024 8:30 AM [place] BAILIFF Frequent falls Syncope, unspecified syncope type Memory impairment Essential (primary) hypertension VITAMIN B12 Routine 08/03/2024 8:30 AM [place] BAILIFF Frequent falls Syncope, unspecified syncope type Memory impairment HEAD COMPUTED TOMOGRAPHY (CT) WITHOUT CONTRAST Schedule Routine, Read Routine (OP Routine) 07/11/2024 9:14 AM COUNTY BAILIFF URINALYSIS, MICROSCOPIC ONLY Routine 07/02/2024 10:20 AM COUNTY BAILIFF Weakness generalized EGFR Routine 07/02/2024 10:20 AM [place] BAILIFF Weakness generalized DIFFERENTIAL AUTO Routine 07/02/2024 10: 20 AM [place] BAILIFF Weakness generalized CBC WITH AUTO DIFFERENTIAL Routine 07/02/2024 10:20 AM [place] BAILIFF Weakness generalized COMPREHENSIVE METABOLIC PANEL Routine 07/02/2024 10:20 AM [place] BAILIFF Weakness generalized ALBUMIN CREATININE RATIO, URINE Routine 07/02/2024 10:20 AM [place] BAILIFF Hypertension associated with diabetes (HCC) HEMOGLOBIN A1C Routine 07/02/2024 10:20 AM [place] BAILIFF Hypertension associated with diabetes (HCC) LAMOTRIGINE LEVEL Routine 07/02/2024 10: 20 AM [place] BAILIFF Seizure (HCC) LIPID PANEL Routine 07/02/2024 10:20 AM [place] BAILIFF Hypertension associated with diabetes (HCC) URINALYSIS AND REFLEX TO MICROSCOPIC AND CULTURE Routine 07/02/2024 10:20 AM [place] BAILIFF Weakness generalized XR SPINE LUMBAR 2 OR 3 VIEWS Schedule SHIRA, Read SHIRA (Appt Today, Awaiting Results) 06/18/2024 3:04 PM COUNTY BAILIFF Accidental fall, subsequent encounter XR HIP LEFT 2 OR 3 VIEWS Schedule SHIRA, Read SHIRA (Appt Today, Awaiting Results) 06/18/2024 3:04 PM COUNTY BAILIFF Accidental fall, subsequent encounter DIABETIC EYE EXAM Routine 06/25/2023 DEXA AXIAL SKELETON BONE DENSITY 1 OR MORE SITES Schedule Routine, Read Routine (OP Routine) 12/12/2022 2:33 PM CDT Screening for osteoporosis Asymptomatic menopausal state from Last 3 Months or Most Recently Relevant to Health Maintenance Results * POCT glucose (08/18/2024 8:02 AM COUNTY BAILIFF) Glucose, POC 130 70 - 199 mg/dL Blood 08/18/2024 8:02 AM COUNTY BAILIFF 08/18/2024 8:02 AM [place] BAILIFF us Adria Diop MD LAB POCT ORD ERABLES - DEVICE Final Result [facility] Department [place] [address] * BRAIN, BRAIN STEM MAGNETIC RESONANCE (MR) IMAGING (08/12/2024 1:35 PM COUNTY BAILIFF) Anatomical Region Laterality Modality N/A Magnetic Resonan ce Historical Provider IMG MRI PROCEDURES Final Result * XR Chest 1 View (08/11/2024 9:53 AM COUNTY BAILIFF) Anatomical Region Laterality Modality Body, Chest N/A Radiographic Keyanna ging Historical Provider IMG XR PROCEDURES Final R esult * Vl US Carotids (08/03/2024 8:46 AM [place] BAILIFF) Anatomical Region Laterality Modality Vascular Bilateral Ultrasound 08/03/2024 8:26 AM [place] BAILIFF Narrative 08/03/2024 9:47 AM [place] BAIL[facility] Vascular & Vein Surgery [address] [facility] [place] [address] Carotid Duplex Ultrasound Report Patient Name: RADHA ALLEN K : 1945 (79y 4m) Study Date: 08/03/2024 8:26:13 AM Gender: F Long Term Care Phlebotomist: Location: [facility] Ref Provider: SERVANDO TORRE ?Quality: Adequate Order Provider: JAIME,SERVANDO ?? PROCEDURES: Carotid Report: Carotid duplex examination of the extracranial arteries was performed using 2D, color and spectral Doppler. ?? INDICATIONS: I65.23 Occlusion and stenosis of bilateral carotid arteries. ?? HISTORY: Hypertension. Hyperlipidemia. Diabetic. ?? COMPARISONS: Prior CTA 01/30/23 - ?? MEASUREMENTS: Right ?Value ? Left ? Value RT Prox CCA PSV ?72 cm/sec ? LT Prox CCA PSV ?72 cm/sec RT Prox CCA EDV ?9 cm/sec ?LT Prox CCA EDV ?12 cm/sec RT Distal CCA PSV ?67 cm/sec ? LT Distal CCA PSV ?51 cm/sec RT Distal CCA EDV ?14 cm/sec ? LT Distal CCA EDV ?12 cm/sec RT Prox ICA PSV ?82 cm/sec ? LT Prox ICA PSV ?69 cm/sec RT Prox ICA EDV ?12 cm/sec ? LT Prox ICA EDV ?12 cm/sec RT Mid ICA PSV ? 66 cm/sec ? LT Mid ICA PSV ? 85 cm/sec RT Mid ICA EDV ? 13 cm/sec ? LT Mid ICA EDV ? 18 cm/sec RT Distal ICA PSV ?93 cm/sec ? LT Distal ICA PSV ?157 cm/sec RT Distal ICA EDV ?17 cm/sec ? LT Distal ICA EDV ?26 cm/sec RT ECA Prx PSV ? 127 cm/sec ?LT ECA Prx PSV ? 72 cm/sec RT ICA/CCA ? 1.22 ratio ?LT ICA/CCA ? 1.34 ratio Rt Vert Dst PSV ?39 cm/sec ? Lt Vert Dst PSV ?35 cm/sec - ?? FINDINGS: Rt Common Carotid Artery: Duplex imaging of the right common carotid artery is within normal limits without evidence of atherosclerotic disease. Rt Internal Carotid Artery: The plaque in the right internal carotid artery appears to be heterogeneous and irregular. Atherosclerotic changes of the right internal carotid artery without hemodynamically significant Doppler findings. <50% stenosis. Tortuous mid to distal. Rt External Carotid Artery: Patent right external carotid artery with evidence of atherosclerotic disease present. Rt Vertebral Artery: The right vertebral artery is patent with antegrade flow. Lt Common Carotid Artery: The plaque in the left CCA appears to be heterogeneous. Lt Internal Carotid Artery: The plaque in the left internal carotid artery appears to be heterogeneous and irregular. Atherosclerotic changes of the left internal carotid artery without hemodynamically significant Doppler findings. <50% stenosis. Tortuous mid to distal. Lt External Carotid Artery: The left external carotid artery is patent without evidence of atherosclerotic plaque. Lt Vertebral Artery: The left vertebral artery is patent with antegrade flow. Comments: Brachial artery systolic blood pressure is 161 on the right, 163 on the left. Unable to visualize a 0.42 cm segment of the left proximal ICA due to calcific shadowing. ?? CONCLUSIONS: 1. The right internal carotid artery disease is consistent with a less than 50% stenosis. 2. The left internal carotid artery disease is consistent with a less than 50% stenosis. ?? ATTESTATION: I have reviewed and interpreted the pertinent images and measurements of this study. I attest to the conclusions in the final report that is provided above. Electronically Signed By: Gino Correa MD [facility] 08/03/2024 9:46:05 AM [place] BAILIFF Procedure Note Gino Correa MD - 08/03/2024 Vascular & Vein Surgery [address] [place] [address] Carotid Duplex Ultrasound Report Patient Name: RADHA ALLEN K : 1945 (79y 4m) Study Date: 08/03/2024 8:26:13 AM Gender: F Long Term Care Phlebotomist: Location: [facility] Provider: SERVANDO TORRE Quality: Adequate Order Provider: SERVANDO TORRE PROCEDURES: Carotid Report: Carotid duplex examination of the extracranial arterieswas performed using 2D, color and spectral Doppler. INDICATIONS: I65.23 Occlusion and stenosis of bilateral carotid arteries. HISTORY: Hypertension. Hyperlipidemia. Diabetic. COMPARISONS: Prior CTA 01/30/23 - MEASUREMENTS: Right Value Left Value RT Prox CCA PSV 72 cm/sec LT Prox CCA PSV 72 cm/sec RT Prox CCA EDV 9 cm/sec LT Prox CCA EDV 12 cm/sec RT Distal CCA PSV 67 cm/sec LT Distal CCA PSV 51 cm/sec RT Distal CCA EDV 14 cm/sec LT Distal CCA EDV 12 cm/sec RT Prox ICA PSV 82 cm/sec LT Prox ICA PSV 69 cm/sec RT Prox ICA EDV 12 cm/sec LT Prox ICA EDV 12 cm/sec RT Mid ICA PSV 66 cm/sec LT Mid ICA PSV 85 cm/sec RT Mid ICA EDV 13 cm/sec LT Mid ICA EDV 18 cm/sec RT Distal ICA PSV 93 cm/sec LT Distal ICA PSV 157 cm/sec RT Distal ICA EDV 17 cm/sec LT Distal ICA EDV 26 cm/sec RT ECA Prx PSV 127 cm/sec LT ECA Prx PSV 72 cm/sec RT ICA/CCA 1.22 ratio LT ICA/CCA 1.34 ratio Rt Vert Dst PSV 39 cm/sec Lt Vert Dst PSV 35 cm/sec - FINDINGS: Rt Common Carotid Artery: Duplex imaging of the right common carotidartery is within normal limits without evidence of atherosclerotic disease. Rt Internal Carotid Artery: The plaque in the right internal carotidartery appears to be heterogeneous and irregular. Atherosclerotic changes of the right internalcarotid artery without hemodynamically significant Doppler findings. <50% stenosis.Tortuous mid to distal. Rt External Carotid Artery: Patent right external carotid artery withevidence of atherosclerotic disease present. Rt Vertebral Artery: The right vertebral artery is patent with antegradeflow. Lt Common Carotid Artery: The plaque in the left CCA appears to beheterogeneous. Lt Internal Carotid Artery: The plaque in the left internal carotid arteryappears to be heterogeneous and irregular. Atherosclerotic changes of the left internalcarotid artery without hemodynamically significant Doppler findings. <50% stenosis.Tortuous mid to distal. Lt External Carotid Artery: The left external carotid artery is patentwithout evidence of atherosclerotic plaque. Lt Vertebral Artery: The left vertebral artery is patent with antegradeflow. Comments: Brachial artery systolic blood pressure is 161 on the right, 163on the left. Unable to visualize a 0.42 cm segment of the left proximal ICA due tocalcific shadowing. CONCLUSIONS: 1. The right internal carotid artery disease is consistent with a lessthan 50% stenosis. 2. The left internal carotid artery disease is consistent with a less than50% stenosis. ATTESTATION: I have reviewed and interpreted the pertinent images and measurements ofthis study. I attest to the conclusions in the final report that is provided above. Electronically Signed By: MD AQUILES Gamez[employer] 08/03/2024 9:46:05 AM [place] BAILIFF Servando Torre MD [facility] US PROCEDURES Final Res ult * Methylmalonic acid, serum (08/03/2024 8:30 AM [place] BAILIFF) MMA 0.25 <=0.40 nmol/mL [facility] ref Lab Comment: ADDITIONAL INFORMATION This test was developed and its performance characteristics determined by [facility] in a manner consistent with CLIA requirements. This test has not been cleared or approved by the U.S. Food and Drug Administration. Test Performed by: [facility] [place] [address] Lead [employer] Developer: Liu Davis Ph.D.; CLIA# [id number] Blood 08/03/2024 8:30 AM [place] BAILIFF 08/03/2024 4:21 PM [place] BAILIFF Chelsie Francisco STEAM PLANT OPERATOR LAB BLOOD ORDERABLES F inal Result [facility] [address] Department [place] [address] [facility] ref Lab * Homocysteine (08/03/2024 8:30 AM COUNTY BAILIFF) Homocysteine 14.0 0.0 - 15.0 mcmol/L Comment:Testing performed by : [facility], [address] [place] [address] Blood 08/03/2024 8:30 AM [place] BAILIFF 08/04/2024 10:21 AM [place] BAILIFF Chelsie Mcraeaugusto Francisco STEAM PLANT OPERATOR LAB BLOOD ORDERABLES F inal Result Performing Organization Address [facility] Co de Phone Number [facility] MATTHEW [address] [address] [facility] [place] [address] * Vitamin B12 (08/03/2024 8:30 AM [place] BAILIFF) [facility] Vitamin B12 350 230 - 1,250 pg/mL Blood 08/03/2024 8:30 AM [place] BAILIFF 08/03/2024 4:21 PM [place] BAILIFF Chelsie Vaughn Francisco STEAM PLANT OPERATOR LAB BLOOD ORDERABLES F inal Result Performing Organization Address [facility] de Phone Number [facility] MAT[facility] [address] [address] Department [place] [address] * HEAD COMPUTED TOMOGRAPHY (CT) WITHOUT CONTRAST (07/11/2024 9:14 AM [place] BAILIFF) Anatomical Region Laterality Modality N/A Computed Tomogra phy Marcell Rucker MD IMG CT PROCEDURES Final Result * eGFR (07/02/2024 10:20 AM COUNTY BAILIFF) [facility] eGFR 66 >=60 mL/min/1. 73 m2 Comment: [...] reviewed 2021. Blood 07/02/2024 10:2 0 AM COUNTY BAILIFF 07/02/2024 5:35 PM COUNTY BAILIFF us Kimberly Nicolas MD LAB BLOOD ORDERABLES Final Resu lt [facility] [address] Department [place] [address] * Differential, auto (07/02/2024 10:20 AM COUNTY BAILIFF) Neutrophil abs 5.1 1.5 - 6.5 K/cumm Imm gran abs 0.0 0.0 - 0.1 K/cumm [facility] CH Lymphocyte abs 1.4 0.8 - 3.3 K/cumm [facility] Monocyte abs 0.7 0.2 - 0.8 K/cumm [facility] Eosinophil abs 0.3 0.0 - 0.5 K/cumm [facility] Basophil abs 0.0 0.0 - 0.1 K/cumm [facility] Neutrophil pct 68.0 % [facility] Comment: Interpretive Data Percent cell count reference ranges are not reported, since discordance with absolute values may lead to misinterpretation of CBC data. Current Interpretive Data was last revised on 2017. Imm gran pct 0.5 % [facility] Comment: Interpretive Data Percent cell count reference ranges are not reported, since discordance with absolute values may lead to misinterpretation of CBC data. Current Interpretive Data was last revised on 2017. Lymphocyte pct 18.7 % [facility] Comment: Interpretive Data Percent cell count reference ranges are not reported, since discordance with absolute values may lead to misinterpretation of CBC data. Current Interpretive Data was last revised on 2017. Monocyte pct 9.0 % [facility] Comment: Interpretive Data Percent cell count reference ranges are not reported, since discordance with absolute values may lead to misinterpretation of CBC data. Current Interpretive Data was last revised on 2017. Eosinophil pct 3.4 % [facility] Comment: Interpretive Data Percent [...] on 2017. Blood 07/02/2024 10:2 0 AM COUNTY BAILIFF 07/02/2024 5:00 PM COUNTY BAILIFF us Kimberly Nicolas MD LAB BLOOD ORDERABLES Final Resu lt [facility] [address] Department [place] [address] * (ABNORMAL) Urinalysis reflex to microscopic and culture Urine, clean voided (07/02/2024 10:20 AM COUNTY BAILIFF) Color, ur Yellow Yellow Clarity, ur Clear Clear [facility] Specific gravity, ur 1.012 1.003 - 1.030 [facility] pH, urine 6.5 [facility] Comment: Interpretive Data ? Urine pH is affected by diet, medications, systemic acid-base disturbances, and renal tubular function. ??pH may affect urinary stone formation. ??For example, urine pH below 6.0 may help reduce the tendency for calcium phosphate stones and pH greater than 6.0 may reduce the tendency for uric acid stone formation. Source: [facility] [employer] Current Interpretive Data was last revised on [...] CH Urine, clean voided 07/02/2024 10:20 AM COUNTY BAILIFF 07/02/2024 5:00 PM COUNTY BAILIFF Kimberly Nicolas MD LAB MICROBIOLOGY - GENERAL ORDDidi [facility] Final Result Performing Organization Address [facility] Co de Phone Number AILEEN MATTHEW [address] [place] [address] * (ABNORMAL) CBC with auto differential (07/02/2024 10:20 AM COUNTY BAILIFF) WBC 7.4 3.8 - 9.9 K/cumm Hgb 13.3 11.9 - 15.5 g/dL [facility] Hct 44.2 35.6 - 45.5 % [facility] Plt 296 150 - 400 K/cumm [facility] MPV 9.4 9.1 - 12.3 fL [facility] RBC 4.79 3.90 - 5.20 M/cumm [facility] MCV 92.3 81.3 - 96.4 fL [facility] MCH 27.8 27.1 - 33.3 pg [facility] MCHC 30.1(L) 32.3 - 35.7 g/dL [facility] RDW CV 13.0 11.1 - 14.9 % [facility] RDW SD 43.8 35.7 - 48.1 fL [facility] NRBC abs 0.00 0.00 - 0.01 K/cumm [facility] Blood 07/02/2024 10:2 0 AM COUNTY BAILIFF 07/02/2024 5:00 PM COUNTY BAILIFF Kimberly Nicolas MD LAB BLOOD ORDERABLES Final Resu lt Performing Organization Address City/[facility]/ZIP Co de Phone Number AILEEN MATTHEW [address] Department [place] [address] * (ABNORMAL) Albumin Creatinine Ratio, Urine (07/02/2024 10:20 AM COUNTY BAILIFF) Albumin Ur 45.5 mg/L Comment: Interpretive Data No reference range established. Current interpretive data was last revised 2018. Creatinine Ur 73.7 mg/dL [facility] Comment: Interpretive Data No reference range established. Current interpretive data was last revised 2018. Albumin Creatinine Ratio, Ur 62(H) 1 - 29 mg/g [facility] Urine 07/02/2024 10:2 0 AM COUNTY BAILIFF 07/02/2024 5:00 PM COUNTY BAILIFF Servando Torre MD LAB URINE ORDERABLES Final Result Performing Organization Address [facility] de Phone Number AILEEN [address] [place] [address] * Lamotrigine level (07/02/2024 10:20 AM COUNTY BAILIFF) Lamotrigine 9.6 3.0 - 15.0 mcg/mL [facility] Comment: ADDITIONAL INFORMATION This test was developed and its performance characteristics determined by [facility] in a manner consistent with CLIA requirements. This test has not been cleared or approved by the U.S. Food and Drug Administration. Test Performed by: [address] [address] [address] [employer] Developer: Liu Davis Ph.D.; CLIA# [id number] Blood 07/02/2024 10:2 0 AM COUNTY BAILIFF 07/02/2024 5:00 PM COUNTY BAILIFF Servando Torre MD LAB BLOOD ORDERABLES Final Result Performing Organization Address [facility] Co de Phone Number AILEEN MATTHEW [address] [place] [address] [facility] * (ABNORMAL) Urinalysis, microscopic only (07/02/2024 10:20 AM COUNTY BAILIFF) WBC, ur 6-10(A) 0 - 5 /HPF RBC, ur 3-5(A) 0 - 2 /HPF [facility] Epithelial cells, squamous, ur 1-5 0 - 5 /HPF [facility] Mucous, ur Present(A) [facility] Culture Reflex Comment Reflex conditions for urine culture (WBC >10) not met. [facility] Urine, clean voided 07/02/2024 10:20 AM COUNTY BAILIFF 07/02/2024 5:00 PM COUNTY BAILIFF Kimberly Nicolas MD LAB URINE ORDERABLES Final Resu lt Performing Organization Address [facility] Phone Number [facility] [address] Department [place] [address] * (ABNORMAL) Hemoglobin A1c (07/02/2024 10:20 AM COUNTY BAILIFF) Hgb A1C 6.4(H) 4.0 - 5.6 % Estimated Average Glucose 137 mg/dL [facility] Comment: The ADA recommends reporting an estimated Average Glucose (eAG) with all Hemoglobin A1c results using the equation derived from a study of 507 normal and diabetic adults. ??Minority populations were underrepresented and children were not included. ?? (Diabetes Care 31:0954-5696, 2008). ??The eAG is not equivalent to a fasting glucose. Blood 07/02/2024 10:2 0 AM COUNTY BAILIFF 07/02/2024 5:00 PM COUNTY BAILIFF Result [facility] Servando Torre MD LAB BLOOD ORDERABLES Final Result Performing Organization Address [facility] Phone Number [facility] [address] Department [place] [address] * (ABNORMAL) Lipid panel (07/02/2024 10:20 AM COUNTY BAILIFF) Cholesterol 190 30 - 199 mg/dL Comment: [...] on 2024. Non-HDL Cholesterol 138 mg/dL AILEEN Comment: Interpretive Data Ages < [...] last revised on 2018. Chol/HDL ratio 4 [facility] Blood 07/02/2024 10:2 0 AM COUNTY BAILIFF 07/02/2024 5:00 PM COUNTY BAILIFF us Servando Torre MD LAB BLOOD ORDERABLES Final Result AILEEN [address] Department [place] [address] * (ABNORMAL) Comprehensive metabolic panel (07/02/2024 10:20 AM COUNTY BAILIFF) Sodium 141 135 - 145 mmol/L Potassium, [...] [facility] Blood 07/02/2024 10:2 0 AM COUNTY BAILIFF 07/02/2024 5:00 PM COUNTY BAILIFF us Kimberly Nicolas MD LAB BLOOD ORDERABLES Final Resu lt AILE[facility] [address] [facility] Department [place] [address] * XR Spine Lumbar 2 or 3 Views (06/18/2024 3:04 PM COUNTY BAILIFF) Anatomical Region Laterality Modality Spine N/A Digital Radiogra phy 06/18/2024 5:05 PM COUNTY BAILIFF Narrative 06/18/2024 5:13 PM COUNTY BAILIFF EXAM DESCRIPTION: XR HIP LEFT 2 OR [...] no change from prior CT. There is nkxf-yq-rfqbgwfi multilevel degenerative endplate change with no acute [...] D: ??06/18/2024 5:13 PM T: Report ID: [id number] Reading Location: ??[id number] Procedure Note Teofilo Rand MD - 06/18/2024 [...] no change from prior CT. There is tphi-lx-gpmjrncr multilevel degenerative endplate change with no acute [...] signed by Teofilo ZAFAR T: Report ID: [id number] Reading Location: [id number] us Pricilla Sharif STEAM PLANT OPERATOR IMG XR PROCEDURES Final Result * XR Hip Left 2+ Vw (06/18/2024 3:04 PM COUNTY BAILIFF) Anatomical Region Laterality Modality Lower Extremities, Hip, Pelvis Left D igital Radiography 06/18/2024 5:05 PM COUNTY BAILIFF Narrative 06/18/2024 5:13 PM COUNTY BAILIFF EXAM DESCRIPTION: XR HIP LEFT 2 OR [...] no change from prior CT. There is pgfp-od-fgaggxki multilevel degenerative endplate change with no acute [...] D: ??06/18/2024 5:13 PM T: Report ID: [id number] Reading Location: ??[id number] Procedure Note Teofilo Rand MD - 06/18/2024 [...] no change from prior CT. There is rhze-er-ldocsxef multilevel degenerative endplate change with no acute [...] signed by Teofilo ZAFAR T: Report ID: [id number] Reading Location: [place] [address] Ranita Olguin STEAM PLANT OPERATOR IMG XR PROCEDURES Final Result * Diabetic Eye Exam (06/25/2023) us Historical Provider HEALTH MAINTENANCE Final Result * Dexa Axial Skeleton Bone Density 1 or 2 Site (12/12/2022 2:33 PM CDT) Anatomical Region Laterality Modality Body N/A Radiographic Keyanna ging Narrative 12/12/2022 3:00 PM CDT Patient Name: Radha Allen Date of : 1945 Date of scan: 12/12/2022 Bone mineral density was performed on a PureHistory Discovery Densitometer. ?? Based on machine cross-calibration [...] by the International Society of Clinical Densitometry. [id number] Servando Torre MD IMG DXA PROCEDURES Final Re sult from Last 3 Months or Most Recently Relevant to Health Maintenance Insurance MEDICARE [facility] MEDICARE SUPPLEMENT MEDICARE [employer] MEDICARE SUPPLEMENT MEDICARE [facility] MEDICARE [facility] Advance Directives For more information, please contact: [phone] * Full Code (Latest Code Status on File) Date Activated Date Inactivated Comments 08/17/2024 10:27 AM * LIMITED - No CPR Date Activated Date Inactivated Comments 08/17/2024 10:08 AM 08/17/2024 10:08 AM Question Answer Comments Provide aggressive medical m anagement before a full cardiopulmonary arrest occurs. Use antibiotics, IV Fluids, and medical treatment unless specifically selected below: No intubation * Full Code Date Activated Date Inactivated Comments 08/17/2024 9:42 AM 08/17/2024 10:08 AM * Full Code Date Activated Date Inactivated Comments 11/29/2022 9:30 AM 11/29/2022 3:28 PM Care Teams Fire Support Specialist Relationship Specialty Start Date End Date Servando Torre MD [address] [facility] [address] [place] [address] PCP - General Family Medicine 06/19/22 Mariela Denton MD [address] [place] [address] Referring Physician Gastroenterology 06/19/22 Lexis Barroso OD [address] [place] [address] Lehr Attendant 09/19/22
--- OUTSIDE RECORDS SUMMARY | 2024-08-18 10:57 | XMS_ITS | Encounter Summary ---
Author Organization [facility] Address [address] [place] [address] Phone Care Team Providers Care Legal Entity Controller Name Role Phone Servando Torre MD Primary Care Provider [phone] Mariela Denton MD Unavailable + [phone] Lexis Barroso OD Unavailable +- [phone] Encounter Details Date Type Department Care Team (Late st Contact Info) Description 07/12/2024 Orders Only [facility] [address] [facility] 6th Floor [address] [place] [address] Chelsie Francisco NP [address] [place] [address] Social History Tobacco Use Types Packs/Day Years [...] on file Legal Sex Female 9:30 AM PATIENT FINANCIAL SPECIALIST Gender Identity Female 04/05/2022 6:17 PM [...] on filedocumented in this encounter Care Teams Legal Entity Controller Relationship Specialty Start Date End Date Servando Torre MD [address] [address] PCP - General Family Medicine 06/19/22 Mariela Denton MD [address] [place] [address] Referring Physician Gastroenterology 06/19/22 Lexis Barroso OD [address] [place] [address] Network Engineering Advisor 09/19/22 documented as of this encounter
--- OUTSIDE RECORDS SUMMARY | 2024-08-18 10:57 | XMS_ITS | Encounter Summary ---
Author Organization [facility] Address [address] [place] [address] Phone Care Team Providers Care County Auditor Name Role Phone Servando Torre MD Primary Care Provider [phone] Mariela Denton MD Unavailable [phone] Lexis Barroso OD Unavailable [phone] Reason for Referral * Consultation (Routine) - Pending Review Specialty Diagnoses / Procedures Referred By Angel braswell Referred To Contact Sleep Medicine Diagnoses Frequent falls Sleep walking Chelsie Francisco NP [address] [place] [address] Phone: tel: fax:[phone] [facility] (All Locations) Referral ID Status Reason Start Date Expiration Date Visits Requested Visits Authorized [id number] Pending Review Specialty Services Required 4 08/23/2025 1 1 Question Answer Please select the performing region: [facility] (All Locations) [167] # of visits: 1 Comments Sleep walking BODY MAN Encounter Details Date Type Department Care Team (Late st Contact Info) Description 07/24/2024 Orders Only [facility] [address] [facility] 6th Floor [address] [place] [address] Chelsie Francisco NP [address] [place] [address] Frequent falls (Primary Dx); Syncope, unspecified syncope type; Memory impairment; Essential (primary) hypertension; Sleep walking Social History Tobacco Use Types Packs/Day Years [...] file Legal Sex Female 9:30 AM AUTO BODY MAN Gender Identity Female 04/05/2022 6:17 PM CDT Sexual Orientation Straight 04/05/2022 6: 17 PM CDT documented as of this encounter Progress Notes * Ute Yuan RMA - 07/24/2024 12:50 PM CST Lab orders have been sent via fax to the [facility] in [place]. The phone number [phone], and fax [phone]. Thank you. BODY MAN documented in this encounter Miscellaneous Notes * Addendum Note - Lydia Otto - 07/24/2024 12:50 PM CSTAddended by: LYDIA OTTO on: 08/03/2024 08:45 AM Modules accepted: Orders BODY MAN documented in this encounter Plan of Treatment Scheduled Referrals Name Type Priority Associated Diagnoses Order Schedule Ambulatory referral to Sleep Medicine Outpatient Referral Routine Frequent falls Sleep walking Expected: 08/07/2024 (Approximate), Expires: 07/24/2025 documented as of this encounter Results * Vitamin B12 (08/03/2024 8:30 AM AUTO BODY MAN) Vitamin B12 350 230 - 1,250 pg/mL Blood 08/03/2024 8:30 AM AUTO BODY MAN 08/03/2024 4:21 PM AUTO BODY MAN Chelsie Francisco NP LAB BLOOD ORDERABLES F inal Result Performing Organization Address City/[facility]/ZIP Co de Phone Number ALBERTCITLALI [address] [address] [facility] [place] [address] * Homocysteine (08/03/2024 8:30 AM AUTO BODY MAN) Pathologist [facility] Homocysteine 14.0 0.0 - 15.0 mcmol/L Comment:Testing performed by : [facility], [address] [place] [address]., [id number] Blood 08/03/2024 8:30 AM AUTO BODY MAN 08/04/2024 10:21 AM AUTO BODY MAN Chelsie Francisco GLAZE CARRIER LAB BLOOD ORDERABLES F inal Result Performing Organization Address City/[facility] Co de Phone Number ABLERTCITLALI [address] [address] [facility] [place] [place] [address] * Methylmalonic acid, serum (08/03/2024 8:30 AM AUTO BODY MAN) MMA 0.25 <=0.40 nmol/mL [place] ref Lab Comment: ADDITIONAL INFORMATION This test was developed and its performance characteristics determined by [facility] in a manner consistent with CLIA requirements. This test has not been cleared or approved by the U.S. Food and Drug Administration. Test Performed by: [place] [id number] Wild Oyster Harvester: Liu Davis Ph.D.; CLIA# [id number] Blood 08/03/2024 8:30 AM AUTO BODY MAN 08/03/2024 4:21 PM AUTO BODY MAN us Chelsie Francisco GLAZE CARRIER LAB BLOOD ORDERABLES F inal Result Performing Organization Address City/State/ZIP [facility] Phone Number AILEEN [address] [place] [address] [facility] Lab documented in this encounter Visit Diagnoses Diagnosis Frequent falls- Primary Syncope, unspecified syncope type Memory impairment Memory loss Essential (primary) hypertension Unspecified essential hypertension Sleep walking Sleep arousal disorder documented in this encounter Care Teams County Auditor Relationship Specialty Start Date End Date Servando Torre MD [address] [address] PCP - General Family Medicine 06/19/22 Mariela Denton MD [address] [place] [address] Referring Physician Gastroenterology 06/19/22 Lexis Barroso OD [address] [place] [address] Synthetic Department Supervisor 09/19/22 documented as of this encounter
--- OUTSIDE RECORDS SUMMARY | 2024-08-18 10:57 | XMS_ITS | Encounter Summary ---
Author Organization [facility] Address [address] [place] [address] Phone Care Team Providers Care Property Damage Claims Adjustor Name Role Phone Servando Torre MD Primary Care Provider [phone] Mariela Denton MD Unavailable [phone] Lexis Barroso OD Unavailable [phone] Reason for Visit * Reason Onset Date Comments Medication Problem 07/09/2024 Request For Order(s) 07/09/2024 Encounter Details Date Type Department Care Team (Late st Contact Info) Description 07/09/[address] [facility] Epilepsy [address] [facility] 6th [place] [address] [place] [address] Adria Burleson MD [address] [facility] [address] [place] [address] Medication Problem; Request For Order(s) [...] on file Legal Sex Female 9:30 AM RECIPROCATING DRILL OPERATOR Gender Identity Female 04/05/2022 6:17 PM CDT Sexual Orientation Straight 04/05/2022 6: 17 PM CDT documented as of this encounter Miscellaneous Notes * Telephone Encounter - Jenny Parra CMA - 07/09/2024 8:28 AM CST Patients family was notified of no change with LTG dosing at this time. [facility] is communicating with patients family to get lab order sent to appropriate lab. Jenny PROCATING DRILL OPERATOR * Telephone Encounter - Jenny Parra CMA - 07/09/2024 8:28 AM CST ----- Message from Adria Diop MD sent at 07/08/2024 4:24 PM RECIPROCATING DRILL OPERATOR ----- Thanks for the update From an epilepsy standpoint, I would prefer to keep her on LTG 200 mg bid It's reassuring she's seizure-free We can get a trough LTG level to make sure levels are WNL TY f ----- Message ----- From: Chelsie Francisco NP Sent: 07/08/2024 4:16 PM RECIPROCATING DRILL OPERATOR To: Kimberly Nicolas MD; # Hi [...] sedation, worsening cognition and falls. Seen at [place] for falls in ED, she had blood [...] happy to contact dtr. Thank you, Amara PROCATING DRILL OPERATOR documented in this encounter Plan of Treatment Not on file documented as of this encounter Visit Diagnoses Not on filedocumented in this encounter Care Teams Property Damage Claims Adjustor Relationship Specialty Start Date End Date Servando Torre MD [address] [address] PCP - General Family Medicine 06/19/22 Mariela Denton MD [address] [place] [address] Referring Physician Gastroenterology 06/19/22 Lexis Barroso OD [address] [place] [address] Cloth Bolt Bander 09/19/22 documented as of this encounter
--- OUTSIDE RECORDS SUMMARY | 2024-08-18 10:57 | XMS_ITS | Encounter Summary ---
Author Organization [facility] Address [address] [place] [address] Phone Care Team Providers Care Hide House Supervisor Name Role Phone Servando Torre MD Primary Care Provider [phone] Mariela Denton MD Unavailable + [phone] Lexis Barroso OD Unavailable [phone]- [phone] Reason for Visit * Reason Comments Dementia Encounter Details Date Type Department Care Team (Late st Contact Info) Description 07/08/2024 3:15 PM COMMUNICATION CONSULTANT Office Visit [facility] [address] 6th [address] [place] [address] Chelsie Francisco NP [address] [place] [address] Somnolence, daytime (Primary Dx); Memory impairment; Frequent [...] on file Legal Sex Female 9:30 AM COMMUNICATION CONSULTANT Gender Identity Female 04/05/2022 6:17 PM CDT Sexual Orientation Straight 04/05/2022 6: 17 PM CDT documented as of this encounter Last Filed Vital Signs Vital Sign Reading Time Taken Comments Blood Pressure 129/77 07/08/2024 3:11 PM COMMUNICATION CONSULTANT Pulse 72 07/08/2024 3:11 PM COMMUNICATION CONSULTANT Temperature 36.8 ??C (98.2 ??F) 07/08/2024 3:11 PM CS T Respiratory Rate - - Oxygen Saturation 98% 07/08/2024 3:11 PM COMMUNICATION CONSULTANT Inhaled Oxygen Concentration - - Weight 65.8 kg (145 lb) 07/08/2024 3:11 PM COMMUNICATION CONSULTANT Height 157.5 cm (5' 2 ) 07/08/2024 3:11 PM COMMUNICATION CONSULTANT Body Mass Index 26.52 07/08/2024 3:11 PM COMMUNICATION CONSULTANT documented in this encounter Patient Instructions * Patient Instructions* Chelsie Francisco NP - 07/08/2024 3:15 PM COMMUNICATION CONSULTANT [facility] After Visit Summary SCOUT [...] Additional Resources and Support: Yahaira Ritchie R.N. Mortgage Advisor [employer] [address] [place] [address] Toll Free: [phone] ext [phone] Email: The best way to reach our team is via My Chart, this is a secure way for us to communicate about your health care. Please call The My Chart Support Desk: [phone] for help with My Chart, or [phone] to obtain a link for access. Future [...] let us know your preference when scheduling. UNICATION CONSULTANT documented in this encounter Progress Notes * [...] the same week (confused, took to ED), [facility]. Everything checked out fine. CS is worried [...] catheter every 8 (eight) weeks Infused at: [facility] ([facility] order in Epic under [...] Drinking: Never Medical Records Review: I reviewed [facility] notes and prior Neuropsychometric testing scores. Lab [...] normal 04/09/2023 7:00 AM 05/19/2024 7:00 AM [facility] Neurobehavioral Status Exam Results Repository ICF signed? No No Verbal Fluency Total Score 10 8 [place] Naming (15 item) Total Score 15 15 [...] Dementia Ratin04/09/2023 7:00 AM 05/19/2024 7:00 AM [facility] CDR/DIAGNOSIS NEW Repository ICF signed? No No [...] twice in the emergency department following falls ([facility]), brain imaging normal per CS. She had [...] Additional Resources and Support: Yahaira Ritchie R.N. Mortgage Advisor [employer] [address] [place] [address] Toll Free: [phone] ext [phone] Email: The best way to reach our team is via My Chart, this is a secure way for us to communicate about your health care. Please call The My Chart Support Desk: [phone] for help with My Chart, or [phone] to obtain a link for access. Future Appointments Date Time Provider Department Center 08/03/2024 8:00 AM [facility] CARD EDW ECHO/VASC CV EDW US MG Decent 08/10/2024 4:30 PM Adria Burleson MD EPI CAM 6C NL 09/23/2024 2:00 PM Teofilo Tang MD [facility] CAR MRVL Specialty 10/06/2024 2:00 PM Servando Torre MD PCP EDW2 PC 11/10/2024 12:30 PM Adria Burleson MD EPI CAM 6C NL 05/04/2025 3:45 PM Josué Cook MD GI CAM 12B [facility] We offer in person and [...] time spent in any separately reportable services. UNICATION CONSULTANT UNICATION CONSULTANT documented in this encounter Plan of [...] documented as of this encounter Care Teams Hide House Supervisor Relationship Specialty Start Date End Date Servando Torre MD [address] [address] PCP - General Family Medicine 06/19/22 Mariela Denton MD [address] [place] [address] Referring Physician Gastroenterology 06/19/22 Lexis Barroso OD [address] [place] [id number] Lacquer Shader 09/19/22 documented as of this encounter
--- OUTSIDE RECORDS SUMMARY | 2024-08-18 10:57 | XMS_ITS | Encounter Summary ---
Author Organization [facility] Address [address] [place] [address] Care Team Providers Care Wholesale Loan Processor Name Role Phone Servando Torre MD Primary Care Provider Mariela Denton MD Unavailable [phone] Lexis Barroso OD Unavailable [phone] Reason for Visit * Reason Comments Suture / Staple Removal Had claudia plac ed on 07/11 at [facility], on the back of her head Encounter Details Date Type Department Care Team (Late st Contact Info) Description 07/22/2024 7:00 PM POULTRY PICKING MACHINE TENDER Office Visit [facility] at [address] [address] Lexis Chaves PA [address] [place] [address] [address] [place] [address] Encounter for staple removal (Primary Dx) Social History Tobacco Use Types [...] on file Legal Sex Female 9:30 AM POULTRY PICKING MACHINE TENDER Gender Identity Female 04/05/2022 6:17 PM CDT Sexual Orientation Straight 04/05/2022 6: 17 PM CDT documented as of this encounter Last Filed Vital Signs Vital Sign Reading Time Taken Comments Blood Pressure 157/70 07/22/2024 7:09 PM POULTRY PICKING MACHINE TENDER Pulse 70 07/22/2024 7:09 PM POULTRY PICKING MACHINE TENDER Temperature 37 ??C (98.6 ??F) 07/22/2024 7:09 PM POULTRY PICKING MACHINE TENDER Respiratory Rate 20 07/22/2024 7:09 PM POULTRY PICKING MACHINE TENDER Oxygen Saturation 96% 07/22/2024 7:09 PM POULTRY PICKING MACHINE TENDER Inhaled Oxygen Concentration - - Weight 65.8 kg (145 lb) 07/22/2024 7:09 PM POULTRY PICKING MACHINE TENDER Height 157.5 cm (5' 2.01 ) 07/22/2024 7:09 PM CS T Body Mass Index 26.51 07/22/2024 7:09 PM POULTRY PICKING MACHINE TENDER documented in this encounter Progress Notes * Lexis Chaves PA - 07/22/2024 7:00 PM CST Images from the original note were not included. Subjective/Objective Patient ID: iLsa Allen is a 79 y.o. female. Chief Complaint Suture / Staple Removal (Had claudia placed on 07/11 at [place], on the back of her head ) Pt presents for staple removal. Seen at [place] 2 weeks ago, had 3 claudia placed. No issues with them. No drainage. Has been washing her hair. Review of Systems All systems reviewed and are negative or non contributory for this patient's presentation today other than as stated in the HPI . Physical Exam Constitutional: General: She is not in acute distress. HENT: Head: Normocephalic and atraumatic. Comments: [address] posterior scalp, no dehiscence Mouth/Throat: Pharynx: Oropharynx is clear. Eyes: Pupils: Pupils are equal, round, and reactive to light. Cardiovascular: Rate and Rhythm: Normal rate. Pulmonary: Effort: Pulmonary effort is normal. Musculoskeletal: General: Normal range of motion. Cervical back: Normal range of motion. Skin: General: Skin is warm and dry. Neurological: General: No focal deficit present. Mental Status: She is alert and oriented to person, place, and time. Psychiatric: Mood and Affect: Mood normal. Behavior: Behavior normal. Vitals: 07/22/24 1909 BP: 157/70 Pulse: 70 Resp: 20 Temp: 37 ??C (98.6 ??F) SpO2: 96% Weight: 65.8 kg (145 lb) Height: 157.5 cm (5' 2.01 ) Assessment/Plan 3 claudia removed without difficulty Diagnoses and all orders for this visit: Encounter for staple removal (Primary) No results found for this or any previous visit (from the past 4 hours). Disposition Treatment plan including expectations, follow up, and return precautions discussed with patient/parent, verbalizes understanding. Medication dosage, use, and potential adverse reactions discussed with patient/parent. Advised to follow up with PCP if symptoms do not resolve as expected or sooner if condition worsens. Signs/symptoms warranting ER evaluation reviewed. Patient and/or guardian was given an opportunity to ask questions, questions answered. CHAMP Michele 07/22/24 7:20 PM TRY PICKING MACHINE TENDER documented in this encounter Plan of Treatment Not on file documented as of this encounter Visit Diagnoses Diagnosis Encounter for staple removal- Primary documented in this encounter Care Teams Wholesale Loan Processor Relationship Specialty Start Date End Date Servando Torre MD [address] [facility] [address] [place] [address] PCP - General Family Medicine 06/19/22 Mariela Denton MD [address] [place] [address] Referring Physician Gastroenterology 06/19/22 Lexis Barroso OD [address] [place] [id number] Die Caster 09/19/22 documented as of this encounter
--- OUTSIDE RECORDS SUMMARY | 2024-08-18 10:57 | XMS_ITS | Referral Summary ---
Author Organization [facility] Address [address] [place] [address] Care Team Providers Care Language Arts Teacher Name Role Phone Servando Torre MD Primary Care Provider Mariela Denton MD Unavailable [phone] Lexis Barroso OD Unavailable [phone] Encounters Date Type Department Care Team Description 08/17/2024 8:00 AM ELECTRIC TRUCKER Ancillary Procedure [address] [phone] Rene De La O MT Seizure ([facility]) 08/17/2024 8:26 AM ELECTRIC TRUCKER - Present Hospital Encounter [address] [phone] Adria Burleson MD 08/16/2024 Orders Only [facility] Medical [facility] Primary Care at [address] [phone] ProviderSilvestre MD 08/13/2024 Telephone [facility] [address] [place] [phone] Karen Lee 08/12/2024 Telephone [facility] [address] [facility] 6th [place] [address] [place] [address] Ute Miller MD 08/12/2024 Orders Only [facility] Primary Care at [address] [phone] ProviderSilvestre MD 08/03/2024 4:00 PM ELECTRIC TRUCKER - 08/03/2024 11:59 PM ELECTRIC TRUCKER Hospital Encounter [address] [address] Frequent falls; Syncope, unspecified syncope type; Memory impairment; Essential (primary) hypertension Discharge Disposition: Discharge to home or self care 08/03/2024 8:45 AM ELECTRIC TRUCKER Lab [facility] Outpatient Lab at [address] [phone] 08/03/2024 8:00 AM ELECTRIC TRUCKER Ancillary Procedure [facility] Vascular and Vein Surgery at [address] [place] [phone] Carotid stenosis, asymptomatic, bilateral 07/28/2024 Orders Only [facility] [address] [place] [phone] Chelsie Francisco NP 07/24/2024 Orders Only [facility] [address] [place] [phone] Chelsie Francisco NP Frequent falls (Primary Dx); Syncope, unspecified syncope type; Memory impairment; Essential (primary) hypertension; Sleep walking 07/22/2024 7:00 PM ELECTRIC TRUCKER Office Visit [facility] Convenient Care at [address] [phone] Lexis Chaves PA Encounter for staple removal (Primary Dx) 07/14/2024 Telephone [facility] Primary Care at [address] [phone] Results 07/12/2024 Orders Only [facility] [address] [place] [phone] Chelsie Francisco NP 07/12/2024 Orders Only [facility] Primary Care at [address] [phone] Marcell Rucker MD 07/09/2024 Telephone [facility] [address] [facility] 6th [place] [address] [place] [phone] Adria Burleson MD Medication Problem; Request For Order(s) 07/08/2024 3:15 PM ELECTRIC TRUCKER Office Visit [facility] [address] [facility] 6th Floor [address] [place] [address] Chelsie Francisco NP Somnolence, daytime (Primary Dx); Memory impairment; Frequent falls; Anxiety 07/05/2024 3:00 PM ELECTRIC TRUCKER Office Visit [facility] Primary Care at [address] [phone] Servando Torre MD Encounter for Medicare annual wellness exam (Primary Dx); Mixed diabetic hyperlipidemia associated with type 2 diabetes mellitus (HCC); Hypertension associated with diabetes (HCC); Gastroesophageal reflux disease without esophagitis; At risk for falls; Carotid stenosis, asymptomatic, bilateral 07/02/2024 10:20 AM ELECTRIC TRUCKER - 07/02/2024 11:59 PM ELECTRIC TRUCKER Hospital Encounter [address] [address] Hypertension associated with diabetes (HCC); Seizure (HCC); Weakness generalized Discharge Disposition: Discharge to home or self care 07/02/2024 10:15 AM ELECTRIC TRUCKER Lab [facility] Outpatient Lab at [address] [phone] Encounter for Medicare annual wellness exam (Primary Dx) 06/29/2024 Orders Only [facility] [address] [place] [address] Kimberly Nicolas MD Weakness generalized (Primary Dx) 06/18/2024 3:00 PM ELECTRIC TRUCKER Ancillary Procedure [facility] Imaging at [address] [phone] Accidental fall, subsequent encounter 06/18/2024 2:55 PM ELECTRIC TRUCKER Ancillary Procedure [facility] Imaging at [address] [phone] Accidental fall, subsequent encounter 06/18/2024 2:30 PM ELECTRIC TRUCKER Office Visit [facility] Convenient Care at [address] [phone] Pricilla Olguin NP Accidental fall, subsequent encounter (Primary Dx) 05/28/2024 Telephone [facility] Primary Care at [address] [phone] Servando Torre MD Medical Question/Miscellaneo us 05/19/2024 4:30 PM CDT Office Visit [facility] [address] [facility] 6th [place] [address] [place] [address] Kimberly Nicolas MD Vascular dementia without behavioral disturbance (HCC) (Primary Dx) 05/18/2024 Orders Only [facility] [address] [facility] 12th [place] [address] [place] [address] Ayala Mobley RN Chronic ulcerative colitis, unspecified complication (HCC) (Primary Dx); High risk medications (not anticoagulants) long-term use; Healthcare maintenance; Encounter for screening for other viral diseases from Last 3 Months Allergies Active Allergy [...] check blood glucose 50 each 08/16/19 23 Suspended OneTouch Delica Plus Lancet 33 gauge miscIndications:Pr ediabetes 1 each by other route daily To check glucose with glucose monitor and strip 100 each 08/16/19 23 Suspended amLODIPine (NORVASC) 5 mg [...] catheter every 8 (eight) weeks Infused at: [facility] order in Epic under [...] skin daily 30 patch 6 07/12/20 24 025 Suspended Active Problems Problem Noted Date [...] epilepticus 03/17/2023 At risk for falls 03/13/2023 snf (current) use of oral hypoglycemic fuentes gs [...] 05/29 Assessment & Plan (07/05/2024 3:20 PM ELECTRIC TRUCKER): A(n) yearly Medicare Annual Wellness Visit has [...] months Assessment & Plan (06/26/2023 2:02 PM ELECTRIC TRUCKER): A(n) yearly Medicare Annual Wellness Visit has [...] months Assessment & Plan (06/23/2022 3:06 PM ELECTRIC TRUCKER): A(n) initial Medicare Annual Wellness Visit has [...] (06/19/2022): Added automatically from request for surgery [id number] Ear ringing 03/03/2013 Asymmetrical sensorineural hearing loss 03/03/20 13 Stress fracture 07/07/2012 Arthralgia of hip 02/06/2011 Resolved Problems Problem Noted Date Diagnosed Date Resolved Date Hospital discharge follow-up 06/11/2023 08/07/2023 Assessment & Plan (06/11/2023 1:42 PM ELECTRIC TRUCKER): I have reviewed the hospital record, medications, [...] on file Legal Sex Female 9:30 AM ELECTRIC TRUCKER Gender Identity Female 04/05/2022 6:17 PM CDT Sexual Orientation Straight 04/05/2022 6: 17 PM CDT Last Filed Vital Signs Vital Sign Reading Time Taken Comments Blood Pressure 117/55 08/18/2024 9:45 AM ELECTRIC TRUCKER Pulse 65 08/18/2024 9:45 AM ELECTRIC TRUCKER Temperature 36.4 ??C (97.5 ??F) 08/18/2024 7:00 AM CS T Respiratory Rate 18 08/18/2024 7:00 AM ELECTRIC TRUCKER Oxygen Saturation 94% 08/18/2024 7:00 AM ELECTRIC TRUCKER Inhaled Oxygen Concentration - - Weight 65.8 kg (145 lb 1 oz) 08/17/2024 6:45 PM ELECTRIC TRUCKER Height 157.5 cm (5' 2.01 ) 08/17/2024 6:45 PM CS T Body Mass Index 26.53 08/17/2024 6:45 PM ELECTRIC TRUCKER Plan of Treatment Not on file Procedures * The patient is currently admitted. The information in this section might not be complete until the patient is discharged. Procedure Name Priority Date/Time Associated Diagnosis Comments POCT GLUCOSE DEVICE Routine 08/18/2024 8 :02 AM ELECTRIC TRUCKER BRAIN, BRAIN STEM MAGNETIC RESONANCE (MR) IMAGING Schedule Routine, Read Routine (OP Routine) 08/12/2024 1:35 PM ELECTRIC TRUCKER XR CHEST 1 VIEW Schedule Routine, Read Routine (OP Routine) 08/11/2024 9:53 AM ELECTRIC TRUCKER US CAROTIDS DUPLEX BILATERAL Schedule Routine, Read Routine (OP Routine) 08/03/2024 8:46 AM ELECTRIC TRUCKER Carotid stenosis, asymptomatic, bilateral METHYLMALONIC ACID, SERUM Routine 08/03/2024 8:30 AM ELECTRIC TRUCKER Frequent falls Syncope, unspecified syncope type Memory impairment HOMOCYSTEINE Routine 08/03/2024 8:30 AM ELECTRIC TRUCKER Frequent falls Syncope, unspecified syncope type Memory impairment Essential (primary) hypertension VITAMIN B12 Routine 08/03/2024 8:30 AM ELECTRIC TRUCKER Frequent falls Syncope, unspecified syncope type Memory impairment HEAD COMPUTED TOMOGRAPHY (CT) WITHOUT CONTRAST Schedule Routine, Read Routine (OP Routine) 07/11/2024 9:14 AM ELECTRIC TRUCKER URINALYSIS, MICROSCOPIC ONLY Routine 07/02/2024 10:20 AM ELECTRIC TRUCKER Weakness generalized EGFR Routine 07/02/2024 10:20 AM ELECTRIC TRUCKER Weakness generalized DIFFERENTIAL AUTO Routine 07/02/2024 10: 20 AM ELECTRIC TRUCKER Weakness generalized CBC WITH AUTO DIFFERENTIAL Routine 07/02/2024 10:20 AM ELECTRIC TRUCKER Weakness generalized COMPREHENSIVE METABOLIC PANEL Routine 07/02/2024 10:20 AM ELECTRIC TRUCKER Weakness generalized ALBUMIN CREATININE RATIO, URINE Routine 07/02/2024 10:20 AM ELECTRIC TRUCKER Hypertension associated with diabetes (HCC) HEMOGLOBIN A1C Routine 07/02/2024 10:20 AM ELECTRIC TRUCKER Hypertension associated with diabetes (HCC) LAMOTRIGINE LEVEL Routine 07/02/2024 10: 20 AM ELECTRIC TRUCKER Seizure (HCC) LIPID PANEL Routine 07/02/2024 10:20 AM ELECTRIC TRUCKER Hypertension associated with diabetes (HCC) URINALYSIS AND REFLEX TO MICROSCOPIC AND CULTURE Routine 07/02/2024 10:20 AM ELECTRIC TRUCKER Weakness generalized XR SPINE LUMBAR 2 OR 3 VIEWS Schedule SHIRA, Read SHIRA (Appt Today, Awaiting Results) 06/18/2024 3:04 PM ELECTRIC TRUCKER Accidental fall, subsequent encounter XR HIP LEFT 2 OR 3 VIEWS Schedule SHIRA, Read SHIRA (Appt Today, Awaiting Results) 06/18/2024 3:04 PM ELECTRIC TRUCKER Accidental fall, subsequent encounter DIABETIC EYE EXAM Routine 06/25/2023 DEXA AXIAL SKELETON BONE DENSITY 1 OR MORE SITES Schedule Routine, Read Routine (OP Routine) 12/12/2022 2:33 PM CDT Screening for osteoporosis Asymptomatic menopausal state from Last 3 Months or Most Recently Relevant to Health Maintenance Results * POCT glucose (08/18/2024 8:02 AM ELECTRIC TRUCKER) Glucose, POC 130 70 - 199 mg/dL Blood 08/18/2024 8:02 AM ELECTRIC TRUCKER 08/18/2024 8:02 AM ELECTRIC TRUCKER us Adria Diop MD LAB POCT ORD ERABLES - DEVICE Final Result [facility] Department [place] [address] * BRAIN, BRAIN STEM MAGNETIC RESONANCE (MR) IMAGING (08/12/2024 1:35 PM ELECTRIC TRUCKER) Anatomical Region Laterality Modality N/A Magnetic Resonan ce us Historical Provider IMChelsy MRI PROCEDURES Final Result * XR Chest 1 View (08/11/2024 9:53 AM ELECTRIC TRUCKER) Anatomical Region Laterality Modality Body, Chest N/A Radiographic Keyanna ging Historical Provider MD GRAHAM XR PROCEDURES Final R esult * Vl US Carotids (08/03/2024 8:46 AM ELECTRIC TRUCKER) Anatomical Region Laterality Modality Vascular Bilateral Ultrasound 08/03/2024 8:26 AM ELECTRIC TRUCKER Narrative 08/03/2024 9:47 AM ELECTRIC TRUCKER Vascular & Vein Surgery [address] [place] [address] Carotid Duplex Ultrasound Report Patient Name: RADHA ALLEN K : 1945 (79y 4m) Study Date: 08/03/2024 8:26:13 AM Gender: F Product Safety Lead: Location: [place] Ref Provider: SERVANDO TORRE ?Quality: Adequate Order Provider: SERVANDO TORRE ?? PROCEDURES: Carotid Report: Carotid duplex examination [...] above. Electronically Signed By: Gino Correa MD [facility] 08/03/2024 9:46:05 AM ELECTRIC TRUCKER Procedure Note Gino Correa MD - 08/03/2024 Vascular & Vein Surgery [address] [facility] [place] [address] Carotid Duplex Ultrasound Report Patient Name: RADHA ALLEN K : 1945 (79y 4m) Study Date: 08/03/2024 8:26:13 AM Gender: F Product Safety Lead: CAMILO Location: [facility] Ref Provider: SERVANDO TORRE Quality: Adequate Order Provider: [...] is provided above. Electronically Signed By: MD NEETA Gamez 08/03/2024 9:46:05 AM ELECTRIC TRUCKER us Servando Torre MD IM US PROCEDURES Final Res ult * Methylmalonic acid, serum (08/03/2024 8:30 AM ELECTRIC TRUCKER) MMA 0.25 <=0.40 nmol/mL [facility] Comment: ADDITIONAL INFORMATION This test was developed and its performance characteristics determined by [facility] in a manner consistent with CLIA requirements. This test has not been cleared or approved by the U.S. Food and Drug Administration. Test Performed by: [facility] [place] [address] Fisher Weir: Liu Davis Ph.D.; CLIA# [id number] Blood 08/03/2024 8:30 AM ELECTRIC TRUCKER 08/03/2024 4:21 PM ELECTRIC TRUCKER Chelsie Francisco NP LAB BLOOD ORDERABLES F inal Result Performing Organization Address City/[facility]/ZIP Co de Phone Number AILE[facility] TIFF [address] [place] [address] [facility] * Homocysteine (08/03/2024 8:30 AM ELECTRIC TRUCKER) Pathologist [facility] Homocysteine 14.0 0.0 - 15.0 mcmol/L Comment:Testing performed by : [facility], [address] [facility], [place]., [address] Blood 08/03/2024 8:30 AM ELECTRIC TRUCKER 08/04/2024 10:21 AM ELECTRIC TRUCKER Chelsie Francisco NP LAB BLOOD [place] [address] [place] [address] * Vitamin B12 (08/03/2024 8:30 AM ELECTRIC TRUCKER) Pathologist [facility] Vitamin B12 350 230 - 1,250 pg/mL Blood 08/03/2024 8:30 AM ELECTRIC TRUCKER 08/03/2024 4:21 PM ELECTRIC TRUCKER us Chelsie Francisco NP LAB BLOOD ORDERABLES F inal Result [facility] MATTHEW [address] Department [place] [address] * HEAD COMPUTED TOMOGRAPHY (CT) WITHOUT CONTRAST (07/11/2024 9:14 AM ELECTRIC TRUCKER) Anatomical Region Laterality Modality N/A Computed Tomogra phy us Marcell Rucker MD IMG CT PROCEDURES Final Result * eGFR (07/02/2024 10:20 AM ELECTRIC TRUCKER) eGFR 66 >=60 mL/min/1. 73 m2 Comment: [...] reviewed 2021. Blood 07/02/2024 10:2 0 AM ELECTRIC TRUCKER 07/02/2024 5:35 PM ELECTRIC TRUCKER us Kimberly Nicolas MD LAB BLOOD ORDERABLES Final Resu lt [facility] [address] [address] Department [place] [address] * Differential, auto (07/02/2024 10:20 AM ELECTRIC TRUCKER) Neutrophil abs 5.1 1.5 - 6.5 K/cumm Imm gran abs 0.0 0.0 - 0.1 K/cumm [facility] Lymphocyte abs 1.4 0.8 - 3.3 K/cumm [facility] Monocyte abs 0.7 0.2 - 0.8 K/cumm [facility] Eosinophil abs 0.3 0.0 - 0.5 K/cumm [facility] Basophil abs 0.0 0.0 - 0.1 K/cumm [facility] Neutrophil pct 68.0 % [facility] Comment: Interpretive Data Percent cell count reference ranges are not reported, since discordance with absolute values may lead to misinterpretation of CBC data. Current Interpretive Data was last revised on 2017. Imm gran pct 0.5 % [facility] Comment: Interpretive Data Percent cell count reference ranges are not reported, since discordance with absolute values may lead to misinterpretation of CBC data. Current Interpretive Data was last revised on 2017. Lymphocyte pct 18.7 % [facility] Comment: Interpretive Data Percent cell count reference ranges are not reported, since discordance with absolute values may lead to misinterpretation of CBC data. Current Interpretive Data was last revised on 2017. Monocyte pct 9.0 % [facility] Comment: Interpretive Data Percent cell count reference ranges are not reported, since discordance with absolute values may lead to misinterpretation of CBC data. Current Interpretive Data was last revised on 2017. Eosinophil pct 3.4 % [facility] Comment: Interpretive Data Percent cell count reference ranges are not reported, since discordance with absolute values may lead to misinterpretation of CBC data. Current Interpretive Data was last revised on 2017. Basophil pct 0.4 % [facility] Comment: Interpretive Data Percent cell count reference ranges are not reported, since discordance with absolute values may lead to misinterpretation of CBC data. Current Interpretive Data was last revised on 2017. Blood 07/02/2024 10:2 0 AM ELECTRIC TRUCKER 07/02/2024 5:00 PM ELECTRIC TRUCKER Kimberly Nicolas MD LAB BLOOD ORDERABLES Final Resu lt Performing Organization Address City/[facility]/ZIP Co de Phone Number [facility] MATTHEW [address] [address] Department [place] [address] * (ABNORMAL) Urinalysis reflex to microscopic and culture Urine, clean voided (07/02/2024 10:20 AM ELECTRIC TRUCKER) Color, ur Yellow Yellow Clarity, ur Clear [...] tendency for uric acid stone formation. Source: [facility] Current Interpretive Data was last revised on [...] CH Urine, clean voided 07/02/2024 10:20 AM ELECTRIC TRUCKER 07/02/2024 5:00 PM ELECTRIC TRUCKER us Kimberly Nicolas MD LAB MICROBIOLOGY - GENERAL ORDE RABJOVANI Final Result Performing Organization Address City/[facility]/ZIP Co de Phone Number [facility] TIFF [address] [address] [place] [address] * (ABNORMAL) CBC with auto differential (07/02/2024 10:20 AM ELECTRIC TRUCKER) Pathologist [facility] WBC 7.4 3.8 - 9.9 K/cumm Hgb 13.3 11.9 - 15.5 g/dL [facility] Hct 44.2 35.6 - 45.5 % [facility] Plt 296 150 - 400 K/cumm [facility] MPV 9.4 9.1 - 12.3 fL [facility] RBC 4.79 3.90 - 5.20 M/cumm [facility] MCV 92.3 81.3 - 96.4 fL [facility] MCH 27.8 27.1 - 33.3 pg [facility] MCHC 30.1(L) 32.3 - 35.7 g/dL [facility] RDW CV 13.0 11.1 - 14.9 % [facility] RDW SD 43.8 35.7 - 48.1 fL [facility] NRBC abs 0.00 0.00 - 0.01 K/cumm [facility] Blood 07/02/2024 10:2 0 AM ELECTRIC TRUCKER 07/02/2024 5:00 PM ELECTRIC TRUCKER us Kimberly Nicolas MD LAB BLOOD ORDERABLES Final Resu lt [facility] [address] [address] Department [place] [address] * (ABNORMAL) Albumin Creatinine Ratio, Urine (07/02/2024 10:20 AM ELECTRIC TRUCKER) Pathologist [facility] Albumin Ur 45.5 mg/L Comment: Interpretive Data No reference range established. Current interpretive data was last revised 2018. Creatinine Ur 73.7 mg/dL [facility] Comment: Interpretive Data No reference range established. Current interpretive data was last revised 2018. Albumin Creatinine Ratio, Ur 62(H) 1 - 29 mg/g [facility] Urine 07/02/2024 10:2 0 AM ELECTRIC TRUCKER 07/02/2024 5:00 PM ELECTRIC TRUCKER us Servando Torre MD LAB URINE ORDERABLES Final Result Performing Organization Address [facility] Co de Phone Number [facility] MATTHEW [address] [address] [facility] [place] [address] * Lamotrigine level (07/02/2024 10:20 AM ELECTRIC TRUCKER) Lamotrigine 9.6 3.0 - 15.0 mcg/mL [facility] Comment: ADDITIONAL INFORMATION This test was developed and its performance characteristics determined by [facility] in a manner consistent with CLIA requirements. This test has not been cleared or approved by the U.S. Food and Drug Administration. Test Performed by: [place] [address] Fisher Weir: Liu Davis Ph.D.; CLIA# [id number] Blood 07/02/2024 10:2 0 AM ELECTRIC TRUCKER 07/02/2024 5:00 PM ELECTRIC TRUCKER Result [facility] Servando Torre MD LAB BLOOD ORDERABLES Final Result Performing Organization Address [facility] Co de Phone Number [facility]EN MATTHEW [address] [address] [place] [address] [facility] * (ABNORMAL) Urinalysis, microscopic only (07/02/2024 10:20 AM ELECTRIC TRUCKER) WBC, ur 6-10(A) 0 - 5 /HPF RBC, ur 3-5(A) 0 - 2 /HPF [facility] Epithelial cells, squamous, ur 1-5 0 - 5 /HPF [facility] Mucous, ur Present(A) [facility] Culture Reflex Comment Reflex conditions for urine culture (WBC >10) not met. [facility] Urine, clean voided 07/02/2024 10:20 AM ELECTRIC TRUCKER 07/02/2024 5:00 PM ELECTRIC TRUCKER Kimberly Nicolas MD LAB URINE ORDERABLES Final Resu lt Performing Organization Address [facility] de Phone Number [facility] [address] [place] [address] * (ABNORMAL) Hemoglobin A1c (07/02/2024 10:20 AM ELECTRIC TRUCKER) Hgb A1C 6.4(H) 4.0 - 5.6 % Estimated Average Glucose 137 mg/dL [facility] Comment: The ADA recommends reporting an estimated Average Glucose (eAG) with all Hemoglobin A1c results using the equation derived from a study of 507 normal and diabetic adults. ??Minority populations were underrepresented and children were not included. ?? (Diabetes Care 31:2733-5090, 2008). ??The eAG is not equivalent to a fasting glucose. Blood 07/02/2024 10:2 0 AM ELECTRIC TRUCKER 07/02/2024 5:00 PM ELECTRIC TRUCKER Servando Torre MD LAB BLOOD ORDERABLES Final Result Performing Organization Address [facility] de Phone Number [facility] [place] [place] [address] [place] [address] * (ABNORMAL) Lipid panel (07/02/2024 10:20 AM ELECTRIC TRUCKER) Pathologist [facility] Cholesterol 190 30 - 199 mg/dL [...] [facility] MAT[facility]W Blood 07/02/2024 10:2 0 AM ELECTRIC TRUCKER 07/02/2024 5:00 PM ELECTRIC TRUCKER us Servando Torre MD LAB BLOOD ORDERABLES Final Result [facility] MAT[facility] [address] [address] Department [place] [address] * (ABNORMAL) Comprehensive metabolic panel (07/02/2024 10:20 AM ELECTRIC TRUCKER) Sodium 141 135 - 145 mmol/L Potassium, [...] CERNER [facility] Blood 07/02/2024 10:2 0 AM ELECTRIC TRUCKER 07/02/2024 5:00 PM ELECTRIC TRUCKER us Kimberly Nicolas MD LAB BLOOD ORDERABLES Final Resu lt [facility] MAT[facility] [address] [address] [place] [address] * XR Spine Lumbar 2 or 3 Views (06/18/2024 3:04 PM ELECTRIC TRUCKER) Anatomical Region Laterality Modality Spine N/A Digital Radiogra phy 06/18/2024 5:05 PM ELECTRIC TRUCKER Narrative 06/18/2024 5:13 PM ELECTRIC TRUCKER EXAM DESCRIPTION: XR HIP LEFT 2 OR [...] no change from prior CT. There is zzcy-et-[id number] multilevel degenerative endplate change with no acute [...] D: ??06/18/2024 5:13 PM T: Report ID: [id number] Reading Location: ??[id number] Procedure Note Teofilo Rand MD - 06/18/2024 [...] no change from prior CT. There is peua-ro-ftavjlzu multilevel degenerative endplate change with no acute [...] Teofilo Rand M.D. MJ T: Report ID: [id number] Reading Location: [id number] Pricilla Olguin NP IMG XR PROCEDURES Final Result * XR Hip Left 2+ Vw (06/18/2024 3:04 PM ELECTRIC TRUCKER) Anatomical Region Laterality Modality Lower Extremities, Hip, Pelvis Left D igital Radiography 06/18/2024 5:05 PM ELECTRIC TRUCKER Narrative 06/18/2024 5:13 PM ELECTRIC TRUCKER EXAM DESCRIPTION: XR HIP LEFT 2 OR [...] no change from prior CT. There is qhfd-ny-tabpxzjp multilevel degenerative endplate change with no acute [...] D: ??06/18/2024 5:13 PM T: Report ID: [id number] Reading Location: ??[id number] Procedure Note Teofilo Rand MD - 06/18/2024 [...] no change from prior CT. There is jdmu-qp-zvqktjur multilevel degenerative endplate change with no acute [...] signed by Teofilo ZAFAR T: Report ID: [id number] Reading Location: [id number] Pricilla Olguin NP IMG XR PROCEDURES Final Result * Diabetic Eye Exam (06/25/2023) Historical Provider HEALTH MAINTENANCE Final Result * Dexa Axial Skeleton Bone Density 1 or 2 Site (12/12/2022 2:33 PM CDT) Anatomical Region Laterality Modality Body N/A Radiographic Keyanna ging Narrative 12/12/2022 3:00 PM CDT Patient Name: Radha Allen Date of : 1945 Date of scan: 12/12/2022 Bone mineral density was performed on a [employer] Discovery Densitometer. ?? Based on machine cross-calibration [...] density scan were prepared by Myah Salcedo) CBDT ??who is accredited by the International Society of Clinical Densitometry. The overall patient assessment and scan interpretation were performed by Josep Mathew MD ??who is certified by the International Society of Clinical Densitometry. [id number] Servando Torre MD IMG DXA PROCEDURES Final Re sult from Last 3 Months or Most Recently Relevant to Health Maintenance Insurance MEDICARE [facility] MEDICARE SUPPLEMENT MEDICARE BLUE CROSS MEDICARE SUPPLEMENT MEDICARE [facility] MEDICARE [facility] Advance Directives For more information, please contact: [phone] * Full Code (Latest Code Status on [...] 9:30 AM 11/29/2022 3:28 PM Care Teams Language Arts Teacher Relationship Specialty Start Date End Date Servando Torre MD [address] [address] PCP - General Family Medicine 06/19/22 Mariela Denton MD [address] [place] [address] Referring Physician Gastroenterology 06/19/22 Lexis Barroso OD [address] [place] [address] Wrapping Machine Tender 09/19/22
--- OUTSIDE RECORDS SUMMARY | 2024-08-18 10:57 | XMS_ITS | Encounter Summary ---
Author Organization [facility] Healthcare Address [address] [place] [address] Care Team Providers Care Salesforce Business Analyst Name Role Phone Servando Torre MD Primary Care Provider +1- [phone] Mariela Denton MD Unavailable + -[phone] Lexis Barroso OD Unavailable +1- [phone] Reason for Referral * Diagnostic Imaging (Routine) - Closed Specialty Diagnoses / Procedures Referred By Contac t Referred To Contact Radiology Procedures HEAD COMPUTED TOMOGRAPHY (CT) [place] [id number] [place] [address] Phone: tel: Referral ID Status Reason Start Date Expiration Date Visits Re quested Visits Authorized [id number] Closed 07/12/2024 08/11/2025 1 1 ECT MANAGER SENIOR Encounter Details Date Type Department Care Team (Late st Contact Info) Description 07/12/2024 Orders Only [facility] Medical Group Primary Care at [address] [address] [place] [id number] [place] [address] Social History Tobacco Use Types [...] on file Legal Sex Female 9:30 AM PROJECT MANAGER SENIOR Gender Identity Female 04/05/2022 6:17 PM CDT Sexual Orientation Straight 04/05/2022 6: 17 PM CDT documented as of this encounter Plan of Treatment Not on file documented as of this encounter Procedures Procedure Name Priority Date/Time Associated Diagnosis Comments HEAD COMPUTED TOMOGRAPHY (CT) WITHOUT CONTRAST Schedule Routine, Read Routine (OP Routine) 07/11/2024 9:14 AM PROJECT MANAGER SENIOR documented in this encounter Results * HEAD COMPUTED TOMOGRAPHY (CT) WITHOUT CONTRAST (07/11/2024 9:14 AM PROJECT MANAGER SENIOR) Anatomical Region Laterality Modality N/A Computed Tomogra phy Marcell Rucker MD IMG CT PROCEDURES Final Result documented in this encounter Visit Diagnoses Not on filedocumented in this encounter Care Teams Salesforce Business Analyst Relationship Specialty Start Date End Date Servando Torre MD [address] [facility] [address] [place] [address] PCP - General Family Medicine 06/19/22 Mariela Denton MD [address] [place] [address] Referring Physician Gastroenterology 06/19/22 Lexis Barroso OD [address] [place] [address] Maintenance Director 09/19/22 documented as of this encounter
--- OUTSIDE RECORDS SUMMARY | 2024-08-18 10:57 | XMS_ITS | Encounter Summary ---
Author Organization [facility] Address [address] [place] [address] Care Team Providers Care Machine Operator Hop Picker Name Role Phone Servando Torre MD Primary Care Provider +1- [phone] Mariela Denton MD Unavailable +1 -[phone] Lexis Barroso OD Unavailable +1- [phone] Reason for Visit * Diagnostic Imaging (Routine) - Closed Specialty Diagnoses / Procedures Referred By Contac t Referred To Contact Diagnoses Carotid stenosis, asymptomatic, bilateral Procedures US Carotids Servando Torre MD [address] [place] [address] [address] [place] [address] Phone: tel: fax: [facility] Medical [facility] Vascular and Vein Surgery at [address] [place] [address] Phone: tel: fax: Referral ID Status Reason Start Date Expiration Date Visits Re quested Visits Authorized [id number] Closed 07/05/2024 08/04/2025 1 1 Encounter Details Date Type Department Care Team (Latest Contact Info) Description 08/03/2024 8:00 AM ENROLLMENT COUNSELOR Ancillary Procedure [facility] Medical [facility] Vascular and Vein Surgery at [address] [place] [address] Carotid stenosis, asymptomatic, bilateral Social History Tobacco [...] on file Legal Sex Female 9:30 AM ENROLLMENT COUNSELOR Gender Identity Female 04/05/2022 6:17 PM CDT Sexual Orientation Straight 04/05/2022 6: 17 PM CDT documented as of this encounter Plan of Treatment Not on file documented as of this encounter Procedures Procedure Name Priority Date/Time Associated Diagnosis Comments US CAROTIDS DUPLEX BILATERAL Schedule Routine, Read Routine (OP Routine) 08/03/2024 8:46 AM ENROLLMENT COUNSELOR Carotid stenosis, asymptomatic, bilateral documented in this encounter Results * Vl US Carotids (08/03/2024 8:46 AM ENROLLMENT COUNSELOR) Anatomical Region Laterality Modality Vascular Bilateral Ultrasound 08/03/2024 8:26 AM ENROLLMENT COUNSELOR Narrative 08/03/2024 9:47 AM ENROLLMENT COUNSELOR Vascular & Vein Surgery [address] [facility] [place] [address] Carotid Duplex Ultrasound Report Patient Name: RADHA ALLENKomal : 1945 (79y 4m) Study Date: 08/03/2024 8:26:13 AM Gender: F Senior Research Associate: Location: [facility] Ref Provider: SERVANDO TORRE ?Quality: [...] above. Electronically Signed By: Gino Correa MD B 08/03/2024 9:46:05 AM ENROLLMENT COUNSELOR Procedure Note Gino Correa MD - 08/03/2024 Vascular & Vein Surgery [address] [place] [address] Carotid Duplex Ultrasound Report Patient Name: RADHA ALLEN K : 1945 (79y 4m) Study Date: 08/03/2024 8:26:13 AM Gender: F Senior Research Associate: Location: [facility] Provider: SERVANDO TORRE Quality: Adequate Order Provider: [...] above. Electronically Signed By: Gino Correa MD [facility] 08/03/2024 9:46:05 AM ENROLLMENT COUNSELOR us Servando Torre MD IMG US PROCEDURES Final Res ult documented in this encounter Visit Diagnoses Diagnosis Carotid stenosis, asymptomatic, bilateral documented in this encounter Care Teams Machine Operator Hop Picker Relationship Specialty Start Date End Date Servando Torre MD [address] [facility] [address] [place] [address] PCP - General Family Medicine 06/19/22 Mariela Denton MD [address] [place] [address] Referring Physician Gastroenterology 06/19/22 Lexis Barroso OD [address] [address] Junior Mechanical Engineer 09/19/22 documented as of this encounter
--- OUTSIDE RECORDS SUMMARY | 2024-08-18 10:57 | XMS_ITS | Encounter Summary ---
Author Organization [facility] Healthcare Address [address] [place] [address] Care Team Providers Care Interactive Web Developer Name Role Phone Servando Torre MD Primary Care Provider Mariela Denton MD Unavailable [phone] -[phone] Lexis Barroso OD Unavailable +1- [phone] Reason for Visit * Reason Onset Date Comments CT Results 07/14/2024 Encounter Details Date Type Department Care Team (Late st Contact Info) Description 07/14/2024 Telephone [facility] Medical Group Primary Care at [address] [address] Servando Torre MD [address] [place] [address] [address] [place] [address] CT Results Social History Tobacco Use Types Packs/Day [...] on file Legal Sex Female 9:30 AM ELECTROENCEPHALOGRAPHIC TECHNICIAN Gender Identity Female 04/05/2022 6:17 PM CDT Sexual Orientation Straight 04/05/2022 6: 17 PM CDT documented as of this encounter Miscellaneous Notes * Telephone Encounter - Regina Toscano MA - 07/14/2024 3:12 PM ELECTROENCEPHALOGRAPHIC TECHNICIAN Aby has been informed of the results and will continue with treatment as suggested. Patient verbalizes understanding. No further questions TROENCEPHALOGRAPHIC TECHNICIAN * Telephone Encounter - Regina Toscano MA - 07/14/2024 3:03 PM ELECTROENCEPHALOGRAPHIC TECHNICIAN Attempted to contact Lisa with no answer. LMOM to contact the office back at [phone] Regarding: Telephone task has been made. Please relay: The CT did not show any acute changes, i.e. stroke or mass. The scan was from , ordered by Dr. Rucker TROENCEPHALOGRAPHIC TECHNICIAN * Telephone Encounter - Regina Toscano MA - 07/14/2024 3:03 PM ELECTROENCEPHALOGRAPHIC TECHNICIAN ----- Message from Servando Torre MD sent at 07/13/2024 11:17 AM ELECTROENCEPHALOGRAPHIC TECHNICIAN ----- Please contact patient and advise result note is in [employer] portal TROENCEPHALOGRAPHIC TECHNICIAN documented in this encounter Plan of Treatment Not on file documented as of this encounter Visit Diagnoses Not on filedocumented in this encounter Care Teams Interactive Web Developer Relationship Specialty Start Date End Date Servando Torre MD [address] [facility] [address] [place] [address] PCP - General Family Medicine 06/19/22 Mariela Denton MD [address] [place] [address] Referring Physician Gastroenterology 06/19/22 Lexis Barroso OD [address] [place] [address] Colorer 09/19/22 documented as of this encounter
--- OUTSIDE RECORDS SUMMARY | 2024-08-18 10:57 | XMS_ITS | Encounter Summary ---
Author Organization [facility] Healthcare Address [address] [place] [address] Care Team Providers Care Flight Control Specialist Name Role Phone Servando Torre MD Primary Care Provider +1- [phone] Mariela Denton MD Unavailable +1 -[phone] Lexis Barroso OD Unavailable +1- [phone] Encounter Details Date Type Department Care Team (Late st Contact Info) Description 08/03/2024 8:45 AM EMAIL ADMINISTRATOR Lab [facility] Medical Group Outpatient Lab at [address] [address] Social History Tobacco Use Types [...] on file Legal Sex Female 9:30 AM EMAIL ADMINISTRATOR Gender Identity Female 04/05/2022 6:17 PM CDT Sexual Orientation Straight 04/05/2022 6: 17 PM CDT documented as of this encounter Plan of Treatment Not on file documented as of this encounter Visit Diagnoses Not on filedocumented in this encounter Care Teams Flight Control Specialist Relationship Specialty Start Date End Date Servando Torre MD [address] [facility] [address] [place] [address] PCP - General Family Medicine 06/19/22 Mariela Denton MD [address] [place] [address] Referring Physician Gastroenterology 06/19/22 Lexis Barroso OD [address] [place] [address] Quill Reamer 09/19/22 documented as of this encounter
--- OUTSIDE RECORDS SUMMARY | 2024-08-18 10:58 | XMS_ITS | Encounter Summary ---
Author Organization [facility] Healthcare Address [address] [place] [address] Care Team Providers Care Body Shop Worker Name Role Phone Servando Torre MD Primary Care Provider +1- [phone] Mariela Denton MD Unavailable +1 -[phone] Lexis Barroso OD Unavailable +1- [phone] Encounter Details Date Type Department Care Team (Latest Contact Info) Description 07/02/2024 10:20 AM ACTING MANAGER - 07/02/2024 11:59 PM [facility] Hospital Encounter [facility] [address] [place] [address] Hypertension associated with diabetes (HCC); Seizure [...] on file Legal Sex Female 9:30 AM ACTING MANAGER Gender Identity Female 04/05/2022 6:17 PM [...] nightly 01/01/2024 vedolizumab (ENTYVIO) 300 mg recon solnIndications:Pole Setter roberto ulcerative colitis, unspecified complication (HCC) Infuse [...] mg total) by mouth nightly 01/01/2024 4 lamoTRIgine (LaMICtal) 200 mg tablet 04/27/2024 busPIRone (BUSPAR) 5 mg tablet 05/28/2024 4 cephalexin (KEFLEX) 500 mg capsule 06/10/2024 4 mirtazapine (REMERON) 7.5 mg tablet Take 1 tablet (7.5 mg total) by mouth nightly 30 tablet 5 05/28/2024 4 documented as of this encounter Discharge Disposition Disposition Code Departure Means Destination Discharge to home or self care documented in this encounter Plan of Treatment Not on file documented as of this encounter Procedures Procedure Name Priority Date/Time Associated Diagnosis Comments EGFR Routine 07/02/2024 10:20 AM ACTING MANAGER Weakness generalized DIFFERENTIAL AUTO Routine 07/02/2024 10: 20 AM ACTING MANAGER Weakness generalized URINALYSIS AND REFLEX TO MICROSCOPIC AND CULTURE Routine 07/02/2024 10:20 AM ACTING MANAGER Weakness generalized CBC WITH AUTO DIFFERENTIAL Routine 07/02/2024 10:20 AM ACTING MANAGER Weakness generalized ALBUMIN CREATININE RATIO, URINE Routine 07/02/2024 10:20 AM ACTING MANAGER Hypertension associated with diabetes (HCC) LAMOTRIGINE LEVEL Routine 07/02/2024 10: 20 AM ACTING MANAGER Seizure (HCC) URINALYSIS, MICROSCOPIC ONLY Routine 07/02/2024 10:20 AM ACTING MANAGER Weakness generalized HEMOGLOBIN A1C Routine 07/02/2024 10:20 AM ACTING MANAGER Hypertension associated with diabetes (HCC) LIPID PANEL Routine 07/02/2024 10:20 AM ACTING MANAGER Hypertension associated with diabetes (HCC) COMPREHENSIVE METABOLIC PANEL Routine 07/02/2024 10:20 AM ACTING MANAGER Weakness generalized documented in this encounter Results * (ABNORMAL) Urinalysis, microscopic only (07/02/2024 10:20 AM ACTING MANAGER) WBC, ur 6-10(A) 0 - 5 /HPF RBC, ur 3-5(A) 0 - 2 /HPF [facility] Epithelial cells, squamous, ur 1-5 0 - 5 /HPF [facility] Mucous, ur Present(A) [facility] Culture Reflex Comment Reflex conditions for urine culture (WBC >10) not met. [facility] Urine, clean voided 07/02/2024 10:20 AM ACTING MANAGER 07/02/2024 5:00 PM ACTING MANAGER us Kimberly Nicolas MD LAB URINE ORDERABLES Final [facility] [address] Department [place] [address] * eGFR (07/02/2024 10:20 AM ACTING MANAGER) eGFR 66 >=60 mL/min/1. 73 m2 Comment: [...] reviewed 2021. Blood 07/02/2024 10:2 0 AM ACTING MANAGER 07/02/2024 5:35 PM ACTING MANAGER us Kimberly Nicolas MD LAB BLOOD ORDERABLES Final Resu lt [facility] [address] [place] [address] * Differential, auto (07/02/2024 10:20 AM ACTING MANAGER) Neutrophil abs 5.1 1.5 - 6.5 K/cumm Imm gran abs 0.0 0.0 - 0.1 K/cumm [facility] Lymphocyte abs 1.4 0.8 - 3.3 K/cumm [facility] Monocyte abs 0.7 0.2 - 0.8 K/cumm [facility] Eosinophil abs 0.3 0.0 - 0.5 K/cumm [facility] Basophil abs 0.0 0.0 - 0.1 K/cumm [facility] Neutrophil pct 68.0 % [facility] Comment: Interpretive Data Percent cell [...] on 2017. Blood 07/02/2024 10:2 0 AM ACTING MANAGER 07/02/2024 5:00 PM ACTING MANAGER us Kimberly Nicolas MD LAB BLOOD ORDERABLES Final Resu lt [facility] [address] [place] [address] * (ABNORMAL) CBC with auto differential (07/02/2024 10:20 AM ACTING MANAGER) WBC 7.4 3.8 - 9.9 K/cumm Hgb 13.3 11.9 - 15.5 g/dL [facility] Hct 44.2 35.6 - 45.5 % [facility] Plt 296 150 - 400 K/cumm [facility] MPV 9.4 9.1 - 12.3 fL [facility] RBC 4.79 3.90 - 5.20 M/cumm [facility] MCV 92.3 81.3 - 96.4 fL [facility] MCH 27.8 27.1 - 33.3 pg [facility] MCHC 30.1(L) 32.3 - 35.7 g/dL [facility] RDW CV 13.0 11.1 - 14.9 % [facility] RDW SD 43.8 35.7 - 48.1 fL [facility] NRBC abs 0.00 0.00 - 0.01 K/cumm [facility] Blood 07/02/2024 10:2 0 AM ACTING MANAGER 07/02/2024 5:00 PM ACTING MANAGER us Kimberly Nicolas MD LAB BLOOD ORDERABLES Final Resu lt [facility] [address] [place] [address] * (ABNORMAL) Comprehensive metabolic panel (07/02/2024 10:20 AM ACTING MANAGER) Sodium 141 135 - 145 mmol/L Potassium, pl 4.1 3.3 - 4.9 mmol/L [facility] Chloride 103 97 - 110 mmol/L [facility] CO2 27 22 - 32 mmol/L [facility] Anion gap 11 2 - 15 mmol/L [facility] BUN 16 6 - 25 mg/dL [facility] Creatinine 0.88 0.60 - 1.10 mg/dL [facility] Glucose 128 70 - 199 mg/dL [facility] Comment: Interpretive Data Fasting glucose [...] [facility] CH Blood 07/02/2024 10:2 0 AM ACTING MANAGER 07/02/2024 5:00 PM ACTING MANAGER us Kimberly Nicolas MD LAB BLOOD ORDERABLES Final Resu lt [facility] [address] [place] [address] * (ABNORMAL) Urinalysis reflex to microscopic and culture Urine, clean voided (07/02/2024 10:20 AM ACTING MANAGER) Color, ur Yellow Yellow Clarity, ur Clear [...] tendency for uric acid stone formation. Source: [facility] [employer] Current Interpretive Data was last revised on [...] CH Urine, clean voided 07/02/2024 10:20 AM ACTING MANAGER 07/02/2024 5:00 PM ACTING MANAGER Kimberly Nicolas MD LAB MICROBIOLOGY - GENERAL ORDDidi LEARY Final Result Performing Organization Address [facility] Co de Phone Number [facility] [address] [facility] [place] [address] * (ABNORMAL) Albumin Creatinine Ratio, Urine (07/02/2024 10:20 AM ACTING MANAGER) Albumin Ur 45.5 mg/L Comment: Interpretive Data No reference range established. Current interpretive data was last revised 2018. Creatinine Ur 73.7 mg/dL [facility] Comment: Interpretive Data No reference range established. Current interpretive data was last revised 2018. Albumin Creatinine Ratio, Ur 62(H) 1 - 29 mg/g [facility] Urine 07/02/2024 10:2 0 AM ACTING MANAGER 07/02/2024 5:00 PM ACTING MANAGER Servando Torre MD LAB URINE ORDERABLES Final Result Performing Organization Address [facility] Phone Number [facility] [address] [facility] [place] [address] * (ABNORMAL) Hemoglobin A1c (07/02/2024 10:20 AM ACTING MANAGER) Hgb A1C 6.4(H) 4.0 - 5.6 % Estimated Average Glucose 137 mg/dL [facility] Comment: The ADA recommends reporting an estimated Average Glucose (eAG) with all Hemoglobin A1c results using the equation derived from a study of 507 normal and diabetic adults. ??Minority populations were underrepresented and children were not included. ?? (Diabetes Care 31:4193-8901, 2008). ??The eAG is not equivalent to a fasting glucose. Blood 07/02/2024 10:2 0 AM ACTING MANAGER 07/02/2024 5:00 PM ACTING MANAGER Servando Torre MD LAB BLOOD ORDERABLES Final Result Performing Organization Address [facility] Co de Phone Number [facility] [address] [facility] [place] [address] * Lamotrigine level (07/02/2024 10:20 AM ACTING MANAGER) Pathologist [facility] Lamotrigine 9.6 3.0 - 15.0 mcg/mL [place] ref Lab Comment: ADDITIONAL INFORMATION This test was developed and its performance characteristics determined by [facility] in a manner consistent with CLIA requirements. This test has not been cleared or approved by the U.S. Food and Drug Administration. Test Performed by: [facility] [address] [place] [address] Artificial Flowers Starcher: Liu Davis Ph.D.; CLIA# [id number] Blood 07/02/2024 10:2 0 AM ACTING MANAGER 07/02/2024 5:00 PM ACTING MANAGER us Servando Torre MD LAB BLOOD ORDERABLES Final Result [facility] [address] Department [place] [address] [place] ref Lab * (ABNORMAL) Lipid panel (07/02/2024 10:20 AM ACTING MANAGER) Pathologist [facility] Cholesterol 190 30 - 199 mg/dL Comment: [...] AILEEN MATTHEW Blood 07/02/2024 10:2 0 AM ACTING MANAGER 07/02/2024 5:00 PM ACTING MANAGER us Servando Torre MD LAB BLOOD ORDERABLES Final Result Performing Organization Address City/State/[facility] Co vt Phone Number [facility] MATTHEW [address] [place] [address] documented in this encounter Visit Diagnoses Diagnosis Hypertension associated with diabetes (HCC) Unspecified essential hypertension Seizure (HCC) Other convulsions Weakness generalized Other malaise and fatigue documented in this encounter Care Teams Body Shop Worker Relationship Specialty Start Date End Date Servando Torre MD [address] [facility] [address] [place] [address] PCP - General Family Medicine 06/19/22 Mareila Denton MD [address] [place] [address] Referring Physician Gastroenterology 06/19/22 Lexis Barroso OD [address] [place] [address] Processing Assistant 09/19/22 documented as of this encounter
--- OUTSIDE RECORDS SUMMARY | 2024-08-18 10:58 | XMS_ITS | Encounter Summary ---
Author Organization [facility] Healthcare Address [address] [place] [address] Care Team Providers Care Program Therapist Name Role Phone Servando Torre MD Primary Care Provider Mariela Denton MD Unavailable +1 [phone] Lexis Barroso OD Unavailable +1- [phone] Reason for Referral * Diagnostic Imaging (Routine) - Closed Specialty Diagnoses / Procedures Referred By Angel t Referred To Contact Diagnoses Accidental fall, subsequent encounter Procedures XR Hip Left 2+ Vw Pricilla Olguin NP [address] [place] [address] Phone: tel: fax: [facility] Medical [facility] Referral ID Status Reason Start Date Expiration Date Visits Re quested Visits Authorized [id number] Closed 06/18/2024 07/18/2025 1 1 CE RN Reason for Visit * Reason Comments Pain Pt c/o 2 falls in e last week and having pain in lower L back and bilateral rib pain. She was xrayed at [facility] at the time of the fall and no fx was seen Encounter Details Date Type Department Care Team (Late st Contact Info) Description 06/18/2024 2:30 PM OFFICE RN Office Visit [facility] Medical Group [facility] [place] [address] [place] [address] Pricilla Olguin NP [address] [place] [address] [address] [place] [address] Accidental fall, subsequent encounter (Primary Dx) Social [...] on file Legal Sex Female 9:30 AM OFFICE RN Gender Identity Female 04/05/2022 6:17 PM CDT Sexual Orientation Straight 04/05/2022 6: 17 PM CDT documented as of this encounter Last Filed Vital Signs Vital Sign Reading Time Taken Comments Blood Pressure 116/50 06/18/2024 2:34 PM OFFICE RN Pulse 76 06/18/2024 2:34 PM OFFICE RN Temperature 36.4 ??C (97.5 ??F) 06/18/2024 2:34 PM CS T Respiratory Rate 18 06/18/2024 2:34 PM OFFICE RN Oxygen Saturation 96% 06/18/2024 2:34 PM OFFICE RN Inhaled Oxygen Concentration - - Weight - - Height 157.5 cm (5' 2 ) 06/18/2024 2:34 PM OFFICE RN Body Mass Index - - documented in [...] bilateral rib pain. She was xrayed at [facility] at the time of the fall and no fx was seen) Patient presents to convenient care with daughter for complaints of left hip and lower back pain bilaterally. Patient and daughter state that patient fell Friday morning and Friday evening of this week. Patient was taken to [facility] Emergency room on Friday night [...] with high-risk medication Abnormal liver function tests group home (current) use of oral hypoglycemic drugs Type [...] at: [facility] ([facility] [...] office note has been partially dictated using GENERAL MEDICAL MERATE software, and as a result portions of the record may have been created with this software. Occasional wrong-word or 'xxfmz-n-trac' substitutions may have occurred due to the inherent limitations of voice recognition software. Read the chartcarefully and recognize, using context, where substitutions have occurred. CE RN CE RN documented in this encounter Plan of Treatment Not on file documented as of this encounter Results * XR Hip Left 2+ Vw (06/18/2024 3:04 PM OFFICE RN) Anatomical Region Laterality Modality Lower Extremities, Hip, Pelvis Left D igital Radiography 06/18/2024 5:05 PM OFFICE RN Narrative 06/18/2024 5:13 PM OFFICE RN EXAM DESCRIPTION: XR HIP LEFT 2 OR [...] no change from prior CT. There is ptri-ek-cscdunci multilevel degenerative endplate change with no acute [...] D: ??06/18/2024 5:13 PM T: Report ID: [id number] Reading Location: ??[id number] Procedure Note Teofilo Rand MD - 06/18/2024 [...] no change from prior CT. There is oytl-tt-ljmlhtcl multilevel degenerative endplate change with no acute [...] Teofilo Rand M.D. MJ T: Report ID: [id number] Reading Location: [place] [address] Pricilla Olguin SENIOR HEALTH CONSULTANT IMG XR PROCEDURES Final Result documented in [...] 07/05/2024 added in this encounter Care Teams Program Therapist Relationship Specialty Start Date End Date Servando Torre MD [facility] [address] [address] PCP - General Family Medicine 06/19/22 Mariela Denton MD [facility] [address] [place] [address] Referring Physician Gastroenterology 06/19/22 Lexis Barroso OD [address] [place] [address] A Class Lineman 09/19/22 documented as of this encounter
--- OUTSIDE RECORDS SUMMARY | 2024-08-18 10:58 | XMS_ITS | Encounter Summary ---
Author Organization [facility] Address [address] [place] [address] Phone Care Team Providers Care Tack Driller Name Role Phone Servando Torre MD Primary Care Provider +1 [phone] Mariela Denton MD Unavailable +1 [phone] Lexis Barroso OD Unavailable +1- [phone] Encounter Details Date Type Department Care Team (Late st Contact Info) Description 05/19/2024 4:30 PM CDT Office Visit [facility] [address] [facility] 6th [place] [address] [place] [address] Grace Nicolas MD [address] [facility] [address] [place] [address] 254- Vascular dementia without behavioral disturbance (HCC) (Primary [...] on file Legal Sex Female 9:30 AM BULLDOZER/LOADER/COMPACTOR/SCRAPER Gender Identity Female 04/05/2022 6:17 PM CDT [...] VISIT SUMMARY & PATIENT INSTRUCTIONS For Ms. Rdaha Allen (: 1945) [facility], Department of Neurology [...] today. You may wish to consult an whipped topping supervisor regarding these matters. Level of Care Recommendation: [...] in about a year. . You can [phone] if you have questions about scheduling. If we ordered blood tests today, please stop by the [facility] patient testing area on the third floorto have your blood drawn. This is across from the [employer], in the same direction as the [facility] parking garage. You should continue to see your primary care doctor at regular intervals. RESOURCES FOR ADDITIONAL INFORMATION AND SUPPORT We will refer you to our Alzheimer Association Ash Worker. The social media marketer will call you in the next 7-10 days. Alzheimer's Association of [place] Chapter: ; (toll free); http://www.alz.org Memory [employer] 150-888-3951 http://memorycarehs [facility] Agency on Aging (serving [facility]) http://[facility].[place].org/government/hslaaa.html [facility] Agency on Aging (serving [place], [facility] and [facility] http://www.valley medical centeraaa.org [facility] Psychological Associates- provides counseling and help with the aging and ailments of our loved ones. They may be able to provide counseling in your home as well as in their office and services may be covered by Medicare. [address], [place] [address] or [email or web address]. Website: http://Praekelt Foundation/services/emzkhc-ufde-dovjctyu/ Mind in Motion, Cognitive Stimulation Through Activity at the [place] [employer]. [address] [place] [address] http://www.Trippin In/project/snsl-jv-ekzpzd/ Lewy Body Dementia Association: (toll free); http://www.LBDA.org Association for Frontotemporal Dementias: (toll free); http://www.ftd-picks.org Geriatric Staff Anesthetist: Decision Point consulting, Ms. Varsha Mcgarry, https://www.decisionpointconsulting.org/ Pathways for aging http://Spotify/ Yessy Anthony with Next Step Elder Assist, Certified Anesthesiology Fellow, [address], [address] [address]. , fax: [phone]. [email or web address]. documented in this encounter Ordered Prescriptions Prescription [...] PATIENT FOLLOW-UP VISIT Grace Nicolas MD, MSc [employer] Department of Neurology Patient Name: RADHA ALLEN Medical Record Number (MRN): [id number] Date of (): 1945 Encounter Date: 05/19/2024 Primary Care Practitioner: Servando Ballard MD CHIEF COMPLAINT / Review of Past Visits Ms. Allen returns today for follow-up concerning her diagnosis of (F01.50) Vascular dementia withoutbehavioral disturbance (HCC) (primary encounter diagnosis) . She was last assessed in 10/2023 by COMPUTER PATTERNMAKER Pamela Langston, at which time presented for [...] assisted living facility. She [facility] into the [facility], to the assisted living. Since our [...] able to operate household appliances including the architectural design lecturer, laundry machines, and fiberglass boat maker. She has difficulty using technology, including [...] with high-risk medication Abnormal liver function tests retirement (current) use of oral hypoglycemic drugs Type [...] [facility] (OSF order in Epic [...] were symmetric. There was no pronator drift. Lolipq-xbuv-pbblys testing were normal. No tremor or bradykinesia [...] -Josette singers. 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 - [facility], Friday. She was part of the group . - magen song. - some for . RECENT EVENT PER P: We have group - Josette singers. Working ready for Magen - we go to nursing homes. Last Friday, I got back. - Magen - // most of them were. - I can't remember singing vet's day. COGNITIVE TESTING REPORT Please see neurobehavioral exam results (below) and summary sheet in the chart for test scores. On formal neurobehavioral testing, which took from 1611 h to 1640 h, scores were in the mildly impaired range on tests of semantic memory (Troy Naming, verbal fluency). Scores were in the [...] are not specific for subcortical disease . [facility] Neurobehavioral Status Test Results 04/09/2023 7:00 AM 05/19/2024 7:00 AM [facility] Neurobehavioral Status Exam Results Repository ICF signed? No No Verbal Fluency Total Score 10 8 Troy Naming (15 item) Total Score 15 15 [...] Ms. Jose Alfredo Kumar or our Physician Trolley Operator Ms. Marianne Mccullough, in 6 months. --- [...] labs, tests and medical records, time spent hdeq-tt-loor with the patient and family during the visit, performing counselling and education, placing orders and documenting the visit in the patient's EHR. Grace Nicolas MD, MSc Flattening Press Operator Department of Neurology, [facility] Detailed plan and patient/caregiver education and referrals are in AVS copied below: Patient Instructions [facility] - VISIT SUMMARY & PATIENT INSTRUCTIONS For Ms. Radha Allen (: 1945) [facility], Department of Neurology [...] today. You may wish to consult an whipped topping supervisor regarding these matters. Level of Care Recommendation: [...] in about a year. . You can [phone] if you have questions about scheduling. If we ordered blood tests today, please stop by the [facility] patient testing area on the third floorto have your blood drawn. This is across from the [employer], in the same direction as the bridge tothe parking garage. You should continue to see your primary care doctor at regular intervals. RESOURCES FOR ADDITIONAL INFORMATION AND SUPPORT We will refer you to our Alzheimer Association Ash Worker. The social media marketer will call you in the next 7-10 days. Alzheimer's Association [facility] Chapter: ; (toll free); http://www.alz.org Memory Jail Solutions 076-608-2909 http://memorycareNell [facility] Agency on Aging (serving [facility]) http://[facility].[place].[facility]/government/hslaaa.html [facility] Agency on Aging (serving [facility] and [facility] http://www.[facility].org [facility] Psychological Associates- provides counseling and help with the aging and ailments of our loved ones. They may be able to provide counseling in your home as well as in their office and services may be covered by Medicare. [address], [place] [address] or [email or web address]. Website: http://Praekelt Foundation/services/kxvoxi-wkja-nlahktuk/ Mind in Motion, Cognitive Stimulation Through Activity at the [place] [employer]. [address] [facility] [place] [address] http://www.Seno Medical Instruments, Inc..Harry and David/project/ieuh-yd-jkwdtc/ Lewy Body Dementia Association: (toll free); http://www.LBDA.org Association for Frontotemporal Dementias: (toll free); http://www.ftd-picks.org Geriatric Staff Anesthetist: [employer] Point consulting, Ms. Varsha Mcgarry, https://www.decisionpointconsulting.org/ Pathways for aging http://Spotify/ Yessy Anthony with Next Step Elder Assist, Certified Anesthesiology Fellow, [address], [place] [address]. , fax: [phone]. [email or web address]. documented in this encounter Plan of Treatment [...] documented as of this encounter Care Teams Tack Driller Relationship Specialty Start Date End Date Servando Torre MD [address] [address] PCP - General Family Medicine 06/19/22 Mariela Denton MD [address] [place] [address] Referring Physician Gastroenterology 06/19/22 Lexis Barroso OD [address], [place] [address] Die Presser 09/19/22 documented as of this encounter
--- OUTSIDE RECORDS SUMMARY | 2024-08-18 10:58 | XMS_ITS | Encounter Summary ---
Author Organization [facility] Address [address] [place] [address] Phone Care Team Providers Care Chop Saw Operator Name Role Phone Servando Torre MD Primary Care Provider +1 [phone] Mariela Denton MD Unavailable +1 [phone] Lexis Barroso OD Unavailable +1- [phone] Encounter Details Date Type Department Care Team (Late st Contact Info) Description 05/18/2024 Orders Only [facility] Gastroenterology [address] [facility] 12th [place] [address] [place] [address] Ayala Mobley RN Chronic ulcerative colitis, unspecified [...] file Legal Sex Female 9:30 AM FOOD TASTER Gender Identity Female 04/05/2022 6:17 PM CDT [...] diseases documented in this encounter Care Teams Chop Saw Operator Relationship Specialty Start Date End Date Servando Torre MD [address] [address] PCP - General Family Medicine 06/19/22 Mariela Denton MD [address] [place] [address] Referring Physician Gastroenterology 06/19/22 Lexis Barroso OD [address] [place] [address] Flooring Professional 09/19/22 documented as of this encounter
--- OUTSIDE RECORDS SUMMARY | 2024-08-18 10:58 | XMS_ITS | Encounter Summary ---
Author Organization [facility] Address [address] [place] [address] Phone Care Team Providers Care Manhole Stripper Name Role Phone Servando Torre MD Primary Care Provider +1 [phone] Mariela Denton MD Unavailable + -[phone] Lexis Barroso OD Unavailable +- [phone] Encounter Details Date Type Department Care Team (Late st Contact Info) Description 06/29/2024 Orders Only [facility] [address] [facility] 6th Floor [address] [place] [address] Kimberly Nicolas MD [address] [facility] [address] [place] [address] Weakness generalized (Primary Dx) Social History Tobacco [...] on file Legal Sex Female 9:30 AM BARLEY STEEPER Gender Identity Female 04/05/2022 6:17 PM CDT Sexual Orientation Straight 04/05/2022 6: 17 PM CDT documented as of this encounter Miscellaneous Notes * Addendum Note - Lydia Otto - 06/29/2024 11:17 AM CSTAddended by: LYDIA OTTO on: 07/02/2024 10:20 AM Modules accepted: Orders EY STEEPER documented in this encounter Plan of Treatment Not on file documented as of this encounter Results * (ABNORMAL) CBC with auto differential (07/02/2024 10:20 AM BARLEY STEEPER) WBC 7.4 3.8 - 9.9 K/cumm Hgb 13.3 11.9 - 15.5 g/dL CERNER Hct 44.2 35.6 - 45.5 % CERNER Plt 296 150 - 400 K/cumm [facility] MPV 9.4 9.1 - 12.3 fL [facility] RBC 4.79 3.90 - 5.20 M/cumm C[facility] MCV 92.3 81.3 - 96.4 fL [facility] MCH 27.8 27.1 - 33.3 pg CERNER MCHC 30.1(L) 32.3 - 35.7 g/dL [facility] RDW CV 13.0 11.1 - 14.9 % CERNER CH RDW SD 43.8 35.7 - 48.1 fL [facility] NRBC abs 0.00 0.00 - 0.01 K/cumm C[facility]ER CH Blood 07/02/2024 10:2 0 AM BARLEY STEEPER 07/02/2024 5:00 PM BARLEY STEEPER us Kimberly Nicolas MD LAB BLOOD ORDERABLES Final Resu lt [facility] MATTHEW [address] Department [place] [address] * (ABNORMAL) Comprehensive metabolic panel (07/02/2024 10:20 AM BARLEY STEEPER) Sodium 141 135 - 145 mmol/L Potassium, [...] CERNER CH Blood 07/02/2024 10:2 0 AM BARLEY STEEPER 07/02/2024 5:00 PM BARLEY STEEPER us Kimberly Nicolas MD LAB BLOOD ORDERABLES Final Resu lt [facility] MATTHEW [address] Department [place] [address] * (ABNORMAL) Urinalysis reflex to microscopic and culture Urine, clean voided (07/02/2024 10:20 AM BARLEY STEEPER) Color, ur Yellow Yellow Clarity, ur Clear [...] tendency for uric acid stone formation. Source: [facility] [place] Current Interpretive Data was last revised on [...] CH Urine, clean voided 07/02/2024 10:20 AM BARLEY STEEPER 07/02/2024 5:00 PM BARLEY STEEPER us Kimberly Nicolas MD LAB MICROBIOLOGY - [facility] MIA LEARY Final Result Performing Organization Address City/State/[facility] [place] Phone Number [facility] [address] Department [place] [address] documented in this encounter Visit Diagnoses Diagnosis Weakness generalized- Primary Other malaise and fatigue documented in this encounter Care Teams Manhole Stripper Relationship Specialty Start Date End Date Servando Torre MD [address] [facility] [address] [place] [address] PCP - General Family Medicine 06/19/22 Mariela Denton MD [address] [place] [address] Referring Physician Gastroenterology 06/19/22 Lexis Barroso OD [address] [place] [address] Filling Operator 09/19/22 documented as of this encounter
--- OUTSIDE RECORDS SUMMARY | 2024-08-18 10:58 | XMS_ITS | Encounter Summary ---
Author Organization [facility] Healthcare Address [address] [place] [address] Care Team Providers Care Segmental Paving Supervisor Name Role Phone Servando Torre MD Primary Care Provider +1- [phone] Mariela Denton MD Unavailable +1 [phone] Lexis Barroso OD Unavailable +1- [phone] Encounter Details Date Type Department Care Team (Late st Contact Info) Description 07/02/2024 10:15 AM LEVELER Lab [facility] Medical Group Outpatient Lab at [address] [address] Encounter for Medicare annual wellness [...] on file Legal Sex Female 9:30 AM LEVELER Gender Identity Female 04/05/2022 6:17 PM CDT Sexual Orientation Straight 04/05/2022 6: 17 PM CDT documented as of this encounter Plan of Treatment Not on file documented as of this encounter Visit Diagnoses Diagnosis Encounter for Medicare annual wellness exam- Primary documented in this encounter Care Teams Segmental Paving Supervisor Relationship Specialty Start Date End Date Servando Torre MD [address] [address] PCP - General Family Medicine 06/19/22 Mariela Denton MD [address] [place] [address] Referring Physician Gastroenterology 06/19/22 Lexis Barroso OD [address] [place] [address] Steam Clothes Press Operator 09/19/22 documented as of this encounter
--- OUTSIDE RECORDS SUMMARY | 2024-08-18 10:58 | XMS_ITS | Encounter Summary ---
Author Organization [facility] Healthcare Address [address] [place] [address] Care Team Providers Care Benefits Consulting Analyst Name Role Phone Servando Torre MD Primary Care Provider +1- [phone] Mariela Denton MD Unavailable +1 [phone] Lexis Barroso OD Unavailable +1- [phone] Reason for Visit * Diagnostic Imaging (Routine) - Pending Review Specialty Diagnoses / Procedures Referred By Contac t Referred To Contact Diagnoses Accidental fall, subsequent encounter Procedures XR Spine Lumbar 2 or 3 Views XR Spine Lumbar 4 or More Views Pricilla Olguin NP [address] [place] [address] Phone: tel: fax: [facility] Medical Group Referral ID Status Reason Start Date Expiration Date V isits Requested Visits Authorized [id number] Pending Review 06/18/2024 07/18/2025 1 1 Encounter Details Date Type Department Care Team (Latest Contact Info) Description 06/18/2024 3:00 PM GUEST SERVICE MANAGER Ancillary Procedure [facility] Medical Group Imaging at [address] [address] Accidental fall, subsequent encounter Social [...] on file Legal Sex Female 9:30 AM GUEST SERVICE MANAGER Gender Identity Female 04/05/2022 6:17 PM CDT Sexual Orientation Straight 04/05/2022 6: 17 PM CDT documented as of this encounter Plan of Treatment Not on file documented as of this encounter Procedures Procedure Name Priority Date/Time Associated Diagnosis Comments XR SPINE LUMBAR 2 OR 3 VIEWS Schedule SHIRA, Read SHIRA (Appt Today, Awaiting Results) 06/18/2024 3:04 PM GUEST SERVICE MANAGER Accidental fall, subsequent encounter documented in this encounter Results * XR Spine Lumbar 2 or 3 Views (06/18/2024 3:04 PM GUEST SERVICE MANAGER) Anatomical Region Laterality Modality Spine N/A Digital Radiogra phy 06/18/2024 5:05 PM GUEST SERVICE MANAGER Narrative 06/18/2024 5:13 PM GUEST SERVICE MANAGER EXAM DESCRIPTION: XR HIP LEFT 2 [...] no change from prior CT. There is bapj-dt-mwzrfcuf multilevel degenerative endplate change with no acute [...] D: ??06/18/2024 5:13 PM T: Report ID: [id number] Reading Location: [id number] Procedure Note Teofilo Rand MD - 06/18/2024 [...] no change from prior CT. There is yudt-nb-eafuavmn multilevel degenerative endplate change with no acute [...] signed by Teofilo ZAFAR T: Report ID: [id number] Reading Location: [place] [address] Pricilla Olguin TREE CHIPPER IMG XR PROCEDURES Final Result documented in this encounter Visit Diagnoses Diagnosis Accidental fall, subsequent encounter documented in this encounter Care Teams Benefits Consulting Analyst Relationship Specialty Start Date End Date Servando Torre MD [address] [address] PCP - General Family Medicine 06/19/22 Mariela Denton MD [address] [place] [address] Referring Physician Gastroenterology 06/19/22 Lexis Barroso OD [address] [place] [address] Information Assurance Specialist 09/19/22 documented as of this encounter
--- OUTSIDE RECORDS SUMMARY | 2024-08-18 10:58 | XMS_ITS | Encounter Summary ---
Author Organization [facility] Healthcare Address [address] [place] [address] Care Team Providers Care Kiln Head House Operator Name Role Phone Servando Torre MD Primary Care Provider +1- [phone] Mariela Denton MD Unavailable +1 -[phone] Lexis Barroso OD Unavailable +1- [phone] Encounter Details Date Type Department Care Team (Latest Contact Info) Description 05/13/2024 12:25 PM CDT Ancillary Procedure [facility] Medical Group Imaging at [address] [address] Fall, initial encounter Social History [...] on file Legal Sex Female 9:30 AM FABRICATING MACHINE OPERATOR Gender Identity Female 04/05/2022 6:17 [...] D: ??05/13/2024 4:47 PM T: Report ID: [id number] Reading Location: ??[id number] Procedure Note Dylan Zuniga MD - 05/13/2024 [...] signed by Dylan CARROLL T: Report ID: [id number] Reading Location: [place] [address] Mara Almendarez HEAD OF PHYSICS IMG XR PROCEDURES Final Re sult documented in this encounter Visit Diagnoses Diagnosis Fall, initial encounter documented in this encounter Care Teams Kiln Head House Operator Relationship Specialty Start Date End Date Servando Torre MD [address] [facility] [address] [place] [address] PCP - General Family Medicine 06/19/22 Mariela Denton MD [address] [place] [address] Referring Physician Gastroenterology 06/19/22 Lexis Barroso OD [address] [place] [address] Care Connector 09/19/22 documented as of this encounter
--- OUTSIDE RECORDS SUMMARY | 2024-08-18 10:58 | XMS_ITS | Encounter Summary ---
Author Organization [facility] Healthcare Address [address] [place] [address] Care Team Providers Care Music Supervisor Name Role Phone Servando Torre MD Primary Care Provider +1- [phone] Mariela Denton MD Unavailable +1 -[phone] Lexis Barroso OD Unavailable +- [phone] Reason for Visit * Reason Comments Knee [...] Description 05/13/2024 12:00 PM CDT Office Visit [facility] Medical Group Convenient Care at [address] [address] Mara Almendarez NP [address] [place] [address] [address] [place] [address] Fall, initial encounter (Primary Dx); [...] on file Legal Sex Female 9:30 AM IMPORT COORDINATOR Gender Identity Female 04/05/2022 6:17 PM [...] meet your needs. Thank you for choosing [facility]! It was my pleasure to see you today, I hope you feel better soon! Mara Almendarez ASSISTANT FINANCE MANAGER * Attachments The following attachments cannot be sent through Care Everywhere. * Knee Pain (AfterCare(R) Instructions(ER/ED)) (Belarusian) * Head Injury (AfterCare(R) Instructions(ER/ED)) (Belarusian) documented in this encounter Progress Notes * Mara Almendarez, SALES RECRUITMENT SPECIALIST - 05/13/2024 12:00 PM CDT Images from [...] D: ??05/13/2024 4:47 PM T: Report ID: [id number] Reading Location: ??[id number] Procedure Note Dylan Zuniga MD - 05/13/2024 [...] signed by Dylan CARROLL T: Report ID: [id number] Reading Location: [id number] Mara Almendarez SALES RECRUITMENT SPECIALIST IMG XR PROCEDURES Final Re sult documented [...] Start D ate End Date lamoTRIgine (LaMICtal) 25 mg tablet 04/17/2024 05/19/2024 lamoTRIgine (LaMICtal) 200 mg tablet 04/27/2024 added in this encounter Care Teams Music Supervisor Relationship Specialty Start Date End Date Servando Torre MD [address] [facility] 130 [place] [address] PCP - General Family Medicine 06/19/22 Mariela Denton MD [address] [place] [address] Referring Physician Gastroenterology 06/19/22 Lexis Barroso OD [address] [place] [address] Professor Of Environmental Studies 09/19/22 documented as of this encounter
--- OUTSIDE RECORDS SUMMARY | 2024-08-18 10:58 | XMS_ITS | Encounter Summary ---
Author Organization [facility] Healthcare Address [address] [place] [address] Care Team Providers Care Wrapper Caser Name Role Phone Servando Torre MD Primary Care Provider Mariela Denton MD Unavailable +1 -[phone] Lexis Barroso OD Unavailable +1- [phone] Reason for Visit * Reason Onset Date Comments Medical Question/Miscellaneous 05/28/2024 Encounter Details Date Type Department Care Team (Late st Contact Info) Description 05/28/2024 Telephone [facility] Medical Group Primary Care at [address] [address] Servando Torre MD [address] [place] [address] [address] [place] [address] Medical Question/Miscellaneous Social History Tobacco [...] on file Legal Sex Female 9:30 AM TWISTING DEPARTMENT END FINDER Gender Identity Female 04/05/2022 6:17 PM CDT Sexual Orientation Straight 04/05/2022 6: 17 PM CDT documented as of this encounter Miscellaneous Notes * Telephone Encounter - Halyey Kidd - 05/28/2024 1:06 PM CDT Call Back Caller???s Concern: Caller was asking if rivastigmine has been discontinued and during the call found the DX on their fax machine. Please disregard. Does message need to be routed? No documented in this encounter Plan of Treatment Not on file documented as of this encounter Visit Diagnoses Not on filedocumented in this encounter Care Teams Wrapper Caser Relationship Specialty Start Date End Date Servando Torre MD [address] [address] PCP - General Family Medicine 06/19/22 Mariela Denton MD [address] [place] [address] Referring Physician Gastroenterology 06/19/22 Lexis Barroso OD [address] [place] [address] Book Coverer 09/19/22 documented as of this encounter
--- OUTSIDE RECORDS SUMMARY | 2024-08-18 10:58 | XMS_ITS | Encounter Summary ---
Author Organization [facility] Healthcare Address [address] [place] [address] Care Team Providers Care Electric Sign Assembler Name Role Phone Servando Torre MD Primary Care Provider +1- [phone] Marilea Denton MD Unavailable +1 -[phone] Lexis Barroso OD Unavailable +1- [phone] Reason for Referral * Diagnostic Imaging (Routine) - Closed Specialty Diagnoses / Procedures [facility]erred To Contact Diagnoses Carotid stenosis, asymptomatic, bilateral Procedures Vl US Carotids Servando Torre MD [address] [place] [address] [address] [place] [address] Phone: tel: fax: [facility] Vascular and Vein Surgery at [address] [place] [address] Phone: tel: fax: Referral ID Status Reason Start Date Expiration Date Visits Re quested Visits Authorized [id number] Closed 07/05/2024 08/04/2025 1 1 USION FURNACE OPERATOR Reason for Visit * Reason Comments Medicare Annual Wellness Visit Adrianaen michaelle Medicare wellness Encounter Details Date Type Department Care Team (Late st Contact Info) Description 07/05/2024 3:00 PM DIFFUSION FURNACE OPERATOR Office Visit [facility] Primary Care at [address] [address] Servando Torre MD [address] [facility] [address] [place] [address] Encounter for Medicare annual wellness exam (Primary [...] on file Legal Sex Female 9:30 AM DIFFUSION FURNACE OPERATOR Gender Identity Female 04/05/2022 6:17 PM CDT Sexual Orientation Straight 04/05/2022 6: 17 PM CDT documented as of this encounter Last Filed Vital Signs Vital Sign Reading Time Taken Comments Blood Pressure 128/70 07/05/2024 3:02 PM DIFFUSION FURNACE OPERATOR Pulse 56 07/05/2024 3:02 PM DIFFUSION FURNACE OPERATOR Temperature 36.3 ??C (97.3 ??F) 07/05/2024 3:02 PM CS T Respiratory Rate 18 07/05/2024 3:02 PM DIFFUSION FURNACE OPERATOR Oxygen Saturation 96% 07/05/2024 3:02 PM DIFFUSION FURNACE OPERATOR Inhaled Oxygen Concentration - - Weight 66.7 kg (147 lb) 07/05/2024 3:02 PM DIFFUSION FURNACE OPERATOR Height 157.5 cm (5' 2 ) 07/05/2024 3:02 PM DIFFUSION FURNACE OPERATOR Body Mass Index 26.89 07/05/2024 3:02 PM DIFFUSION FURNACE OPERATOR documented in this encounter Patient Instructions * Patient Instructions* Servando Torre MD - 07/05/2024 3:00 PM DIFFUSION FURNACE OPERATOR Continue work with PT and OT Do [...] you have any questions or concerns at [phone]. You may receive a phone call, text, MYCHART message, or e-mail asking about your care today. We would love to hear your feedback on how EXCELLENT your care wastoday! Wishing you better health, always. Dr. Torre USION FURNACE OPERATOR USION FURNACE OPERATOR documented in this encounter Ordered Prescriptions Prescription [...] 3:00 PM CST MEDICARE ANNUAL WELLNESS VISIT Radha Allen Medicare Health Risk Assessment Basic Information In general, would you say your health is: Good Do you have an advance directive, such as a living will or durable power of director peoplesoft?: Yes Do you have to strain or [...] catheter every 8 (eight) weeks Infused at: [facility] order in Epic [...] as Referring Physician (Gastroenterology) Lexis Barroso OD (Client Sales And Service Officer) Primary Pharmacy/DME suppliers: [address] [facility] [address] Detection of Cognitive Impairment: Mini-Co The patient [...] Improve Diet Advanced Directive Durable Power of Clinical Academic Allergist: Yes Living Will: Yes Opioid Usage Review Using opioids: no Assessment and Plan: Diagnoses and all orders for this visit: Encounter for Medicare annual wellness exam (Primary) Assessment & Plan: A(n) yearly Medicare Annual Wellness Visit has been performed today. Radha Allen is not up to dateon screening [...] mellitus (HCC) Comments: continuing pravavstatin changed to [facility] Orders: - pravastatin (PRAVACHOL) 80 mg tablet; Take 1 tablet (80 mg total) by mouth nightly - Lipid panel; Future - Hemoglobin A1c; Future Hypertension associated with diabetes (HCC) Comments: BP is controlled continuing losartan, metoprolol Orders: - CBC with auto differential; Future - Comprehensive metabolic panel; Future - Thyroid Function [place]; Future - Hemoglobin A1c; Future Gastroesophageal reflux disease without esophagitis - CBC with auto differential; Future At risk for falls Comments: working with PT/OT at [facility]) over the last month [...] update and summary of today's office visit. USION FURNACE OPERATOR * Asif Toscano MA - 07/05/2024 3:00 PM CST Script for pravastatin has been faxed to [facility]. USION FURNACE OPERATOR documented in this encounter Miscellaneous Notes * Assessment & Plan Note - Servando Torre MD - 07/05/2024 3:20 PM DIFFUSION FURNACE OPERATOR Associated Problem(s): Encounter for Medicare annual wellness exam A(n) yearly Medicare Annual Wellness Visit has been performed today. Radha Allen is not up to dateon screening [...] and seat belts. Return in 3 months USION FURNACE OPERATOR * Addendum Note - Asif Toscano MA - 07/05/2024 3:00 PM CSTAddended by: ASIF TOSCANO on: 07/05/2024 04:22 PM Modules accepted: Orders USION FURNACE OPERATOR documented in this encounter Plan of Treatment Scheduled Orders Name Type Priority Associated Diagnoses Orde r Schedule CBC with auto differential Lab Routine Hypertension associated with diabetes (HCC) Gastroesophageal reflux disease without esophagitis Expected: 01/03/2025, Expires: 07/05/2025 Comprehensive metabolic panel Lab Routine Hypertension associated with diabetes (HCC) Expected: 01/03/2025, Expires: 07/05/2025 Lipid panel Lab Routine Mixed diabetic hyperlipidemia associated with type 2 diabetes mellitus (HCC) Expected: 01/03/2025, Expires: 07/05/2025 Thyroid Function [place] Lab Routine Hypertension associated with diabetes (HCC) Expected: 01/03/2025, Expires: 07/05/2025 Hemoglobin A1c Lab Routine Mixed diabetic hyperlipidemia associated with type 2 diabetes mellitus (HCC) Hypertension associated with diabetes (HCC) Expected: 01/03/2025, Expires: 07/05/2025 documented as of this encounter Results * Vl US Carotids (08/03/2024 8:46 AM DIFFUSION FURNACE OPERATOR) Anatomical Region Laterality Modality Vascular Bilateral Ultrasound 08/03/2024 8:26 AM DIFFUSION FURNACE OPERATOR Narrative 08/03/2024 9:47 AM DIFFUSION FURNACE OPERATOR Vascular & Vein Surgery [address] [place] [address] Carotid Duplex Ultrasound Report Patient Name: RADHA ALLEN K : 1945 (79y 4m) Study Date: 08/03/2024 8:26:13 AM Gender: F Ink Blender: CAMILO Location: [facility] Provider: SERVANDO TORRE ?Quality: Adequate Order Provider: [...] Gino Correa MD B 08/03/2024 9:46:05 AM DIFFUSION FURNACE OPERATOR Procedure Note Gino Correa MD - 08/03/2024 Vascular & Vein Surgery [address] [facility] [place] [address] Carotid Duplex Ultrasound Report Patient Name: RADHA ALLEN K : 1945 (79y 4m) Study Date: 08/03/2024 8:26:13 AM Gender: F Ink Blender: CAMILO Location: [facility] Provider: SERVANDO TORRE Quality: Adequate Order Provider: [...] above. Electronically Signed By: Gino Correa MD [facility] 08/03/2024 9:46:05 AM DIFFUSION FURNACE OPERATOR Servando Torre MD [facility] [place] PROCEDURES Final Res ult documented in this encounter Visit Diagnoses Diagnosis Encounter for Medicare annual wellness exam- Primary Mixed diabetic hyperlipidemia associated with type 2 diabetes mellitus (HCC) Hypertension associated with diabetes (HCC) Unspecified essential hypertension Gastroesophageal reflux disease without esophagitis Esophageal reflux At risk for falls Personal history of fall Carotid stenosis, asymptomatic, bilateral Carotid stenosis, asymptomatic, bilateral documented in this [...] as of this encounter Care Teams Electric Sign Assembler Relationship Specialty Start Date End Date Servando Torre MD [facility] [address] PCP - General Family Medicine 06/19/22 Mariela Denton MD [facility] [address] [place] [address] Referring Physician Gastroenterology 06/19/22 Lexis Barroso OD [address] [place] [address] Client Sales And Service Officer 09/19/22 documented as of this encounter
--- OUTSIDE RECORDS SUMMARY | 2024-08-18 10:58 | XMS_ITS | Encounter Summary ---
Author Organization [facility] Healthcare Address [address] [place] [address] Care Team Providers Care Apple Checker Name Role Phone Servando Torre MD Primary Care Provider Mariela Denton MD Unavailable +1 -[phone] Lexis Barroso OD Unavailable +1- [phone] Encounter Details Date Type Department Care Team (Late st Contact Info) Description 05/15/2024 Telephone [facility] Medical Group Convenient Care at [place] [address] [place] [address] Pricilla Olguin NP 2 [facility] [address] [place] [address] Social History Tobacco Use Types [...] file Legal Sex Female 9:30 AM MECHANICAL FITTER Gender Identity Female 04/05/2022 6:17 PM CDT Sexual Orientation Straight 04/05/2022 6: 17 PM CDT documented as of this encounter Miscellaneous Notes * Telephone Encounter - Pricilla Olguin NP - 05/15/2024 10:36 AM CDT Patient was scheduled at [facility] via [facility] at 6:00 p.m. for complaints of confusion. [...] on filedocumented in this encounter Care Teams Apple Checker Relationship Specialty Start Date End Date Servando Torre MD [facility] [address] [address] PCP - General Family Medicine 06/19/22 Mariela Denton MD [facility] [address] [place] [address] Referring Physician Gastroenterology 06/19/22 Lexis Barroso OD [address] [place] [address] Labor Representative 09/19/22 documented as of this encounter
--- OUTSIDE RECORDS SUMMARY | 2024-08-18 10:58 | XMS_ITS | Encounter Summary ---
Author Organization [facility] Healthcare Address [address] [place] [address] Care Team Providers Care Insole And Outsole Splitter Name Role Phone Servando Torre MD Primary Care Provider Mariela Denton MD Unavailable +1 -[phone] Lexis Barroso OD Unavailable +1- [phone] Reason for Visit * Reason Onset Date Comments Knee Injury 05/12/2024 Encounter Details Date Type Department Care Team (Late st Contact Info) Description 05/12/2024 Nurse Triage [facility] Medical Group Primary Care at [address] [address] Servando Torre MD [address] [place] [address] [address] [place] [address] Social History Tobacco Use Types [...] file Legal Sex Female 9:30 AM RN ANESTHESIOLOGY Gender Identity Female 04/05/2022 6:17 PM CDT [...] to chair today. Patient lives at the [facility]. Denies: other symptoms Relevant Meds: elevating [...] wants to be seen Protocols used: Knee [id number]-IF * Telephone Encounter - Leena Hoskins RN [...] on filedocumented in this encounter Care Teams Insole And Outsole Splitter Relationship Specialty Start Date End Date Servando Torer MD [address] [facility] [address] [place] [address] PCP - General Family Medicine 06/19/22 Mariela Denton MD [address] [facility] [address] [place] [address] Referring Physician Gastroenterology 06/19/22 Lexis Barroso OD [address] [place] [address] Sales Driver 09/19/22 documented as of this encounter
--- OUTSIDE RECORDS SUMMARY | 2024-08-18 10:58 | XMS_ITS | Encounter Summary ---
Author Organization [facility] Healthcare Address [address] [place] [address] Care Team Providers Care Tonsorial Artist Name Role Phone Servando Torre MD Primary Care Provider +1- [phone] Mariela Denton MD Unavailable +1 -[phone] Lexis Barroso OD Unavailable +1- [phone] Reason for Visit * Diagnostic Imaging (Routine) - Closed Specialty Diagnoses / Procedures Referred By Angel t Referred To Contact Diagnoses Accidental fall, subsequent encounter Procedures XR Hip Left 2+ Vw Pricilla Olguin NP [address] [address] Phone: tel: fax: [facility] Medical Group Referral ID Status Reason Start Date Expiration Date Visits Re quested Visits Authorized [id number] Closed 06/18/2024 07/18/2025 1 1 Encounter Details Date Type Department Care Team (Latest Contact Info) Description 06/18/2024 2:55 PM REFRIGERATOR ASSEMBLER Ancillary Procedure [facility] Medical Group Imaging at [address] [address] Accidental fall, subsequent encounter Social [...] on file Legal Sex Female 9:30 AM REFRIGERATOR ASSEMBLER Gender Identity Female 04/05/2022 6:17 PM CDT Sexual Orientation Straight 04/05/2022 6: 17 PM CDT documented as of this encounter Plan of Treatment Not on file documented as of this encounter Procedures Procedure Name Priority Date/Time Associated Diagnosis Comments XR HIP LEFT 2 OR 3 VIEWS Schedule SHIRA, Read SHIRA (Appt Today, Awaiting Results) 06/18/2024 3:04 PM REFRIGERATOR ASSEMBLER Accidental fall, subsequent encounter documented in this encounter Results * XR Hip Left 2+ Vw (06/18/2024 3:04 PM REFRIGERATOR ASSEMBLER) Anatomical Region Laterality Modality Lower Extremities, Hip, Pelvis Left D igital Radiography 06/18/2024 5:05 PM REFRIGERATOR ASSEMBLER Narrative 06/18/2024 5:13 PM REFRIGERATOR ASSEMBLER EXAM DESCRIPTION: XR HIP LEFT 2 OR [...] no change from prior CT. There is iqae-tq-[id number] multilevel degenerative endplate change with no acute [...] D: ??06/18/2024 5:13 PM T: Report ID: [id number] Reading Location: ??[id number] Procedure Note Teofilo Rand MD - 06/18/2024 [...] no change from prior CT. There is ovrl-sb-[id number] multilevel degenerative endplate change with no acute [...] signed by Teofilo ZAFAR T: Report ID: [id number] Reading Location: [place] [address] Pricilla Olguin NP IMG XR PROCEDURES Final Result documented in this encounter Visit Diagnoses Diagnosis Accidental fall, subsequent encounter documented in this encounter Care Teams Tonsorial Artist Relationship Specialty Start Date End Date Servando Torre MD [address] [facility] [address] [place] [address] PCP - General Family Medicine 06/19/22 Mariela Denton MD [address] [place] [address] Referring Physician Gastroenterology 06/19/22 Lexis Barroso OD [address], [place] [address] Radio Equipment Installer 09/19/22 documented as of this encounter
--- OUTSIDE RECORDS SUMMARY | 2024-08-18 10:59 | XMS_ITS | Encounter Summary ---
Author Organization [facility] Address [address] [place] [address] Phone Care Team Providers Care Triple Air Valve Tester Name Role Phone Servando Torre MD Primary Care Provider +1 [phone] Mariela Denton MD Unavailable +1 -[phone] Lexis Barroso OD Unavailable +1- [phone] Reason for Visit * Reason Comments Follow-up Encounter Details Date Type Department Care Team (Late st Contact Info) Description 11/17/2023 11:15 AM CDT Office Visit [facility] [address] [facility] 6th Floor [address] [place] [address] [place], Pamela Ruiz NP [address] [facility] [phone] [place] [address] Vascular dementia without behavioral disturbance [...] on file Legal Sex Female 9:30 AM CREW LEADER GLUING Gender Identity Female 04/05/2022 6:17 PM CDT [...] Program, from The Alzheimer's Association, please call [phone], or you can register online [email or web address][email or web address]. 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 For additional assistance, email or call [phone] (press 1 for clinical trials). ClinicalTrials.gov is a resource provided by the U.S. National Library of Medicine. You can look upclinical trials (research opportunities) online At clinicaltrials.gov Alzheimer's Association [facility] Chapter: ; (toll free); http://www.alz.org, The Alzheimer's Association 17/02 Helpline provides reliable information and support to all those who need assistance. Call toll-free anytime day or night at . Caregiver Guide: tips for caregivers of people with Alzheimer's dementia, www.jerry.nih.gov/Alzheimers /Publication/Vfftsr-irzibz-gkqueclweu-disease/about-guide [facility], [address] [place]. [address], , Occupational Therapists who offers caregiver training, family support, and in home safety assessments at no cost. Memorycarehs.org [facility] Agency on Aging (serving [facility]) http://[facility].[place].[facility]/government/hslaaa.html [facility] Agency on Aging (serving [facility] http://www.multicare health.org If you need to reach our office, please call our nurse at [phone], option 4, leave a message, this voicemail is checked several times per day. If you need to contact our social problems specialist: Pablo Burt or Edd Lino, from the Alzheimer's Association, please call [phone] Future Appointments Date Time Provider Department Center 01/01/2024 2:00 PM Servando Torre MD [facility] EDW2 01/12/2024 4:30 PM Adria Burleson MD EPI CAM 6C NL 05/05/2024 3:45 PM Josué Cook MD GI CAM 12B NICE GASTRO 05/11/2024 4:00 PM Kimberly Nicolas MD [facility] CAM 6C NL 09/23/2024 2:00 PM Teofilo Tang MD [facility] CAR MRVL Specialty documented in this encounter Ordered Prescriptions Prescription Sig Dispense Quantity Refills Last Filled Start Date End Date rivastigmine (EXELON) 4.6 mg/[address] 4.6 mg on the skin daily 30 patch 1 11/17/2023 05/19/2024 documented in this encounter Progress Notes * Pamela Langston NP - 11/17/2023 11:15 AM CDT [facility] OFFICE VISIT Pamela MACK- (Nurse Practitioner) [facility] Department of Neurology Patient Name: RADHA ALLEN Medical Record Number (MRN): [id number] Date of (): 1945 Encounter Date: 11/17/2023 [...] supports for caregivers, discussed availability of our Supervisor Locomotive from the Alzheimer's Association ACTIVE PROBLEMS Patient [...] with high-risk medication Abnormal liver function tests half-way (current) use of oral hypoglycemic drugs Type [...] [facility] ([facility] order in [facility] under 'Procedures' tab)., Disp: 1 each, [...] memory loss. Medical Records Review: I reviewed [facility] notes and prior Neuropsychometric testing scores. 04/09/2023 7:00 AM [facility] Neurobehavioral Status Exam Results Repository ICF signed? No Verbal Fluency Total Score 10 Ebony Naming (15 item) Total Score 15 MMSE [...] Sensation was intact to light touch. Coordination Urevrj-ysnk-isrrfn testing was normal. Reflexes Reflexes were symmetric at the biceps, brachioradialis and knees. Gait Gait was slow and ambulates with walker She was fluent throughout the interview and examination. NEUROBEHAVIORAL TESTING REPORT On formal neurobehavioral testing, which took from 2762-4178. On more global tests, MMSE was 29. [...] GDS. Neurobehavioral test results: 04/09/2023 7:00 AM [facility] Neurobehavioral Status Exam Results Repository ICF signed? No Verbal Fluency Total Score 10 Ebony Naming (15 item) Total Score 15 MMSE [...] Errors 0 Clinical Dementia Ratin04/09/2023 7:00 AM [facility] CDR/DIAGNOSIS NEW Repository ICF signed? No Memory [...] now living in assisted living facility [facility] in [place], [place]. She is struggling with sleep and [...] Program, from The Alzheimer's Association, please call [phone], or you can register online [email or web address]. 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 For additional assistance, email or call [phone] (press 1 for clinical trials). ClinicalTrials.gov is a resource provided by the U.S. National Library of Medicine. You can look upclinical trials (research opportunities) online At clinicaltrials.gov Alzheimer's Association [facility] Chapter: ; (toll free); http://www.alz.org, The Alzheimer's Association 17/02 Helpline provides reliable information and support to all those who need assistance. Call toll-free anytime day or night at . Caregiver Guide: tips for caregivers of people with Alzheimer's dementia, www.jerry.nih.gov/Alzheimers /Publication/Srpawk-qezhvo-xjifwphuwz-disease/about-guide [facility], [address] [place]. [address], , Occupational Therapists who offers caregiver training, family support, and in home safety assessments at no cost. Memorycarehs.org [facility] Agency on Aging ([facility]) http://[facility].[place].[facility]/government/hslaaa.html [facility] on [facility] http://www.multicare health.org If you need to reach our office, please call our nurse at [phone], option 4, leave a message, this voicemail is checked several times per day. If you need to contact our social problems specialist: Pablo Burt or Edd Lino, from the Alzheimer's Association, please call [phone] Future Appointments Date Time Provider Department Center 01/01/2024 2:00 PM Servando Torre MD PCP EDW2 01/12/2024 4:30 PM Adria Burleson MD EPI CAM 6C 05/05/2024 3:45 PM Josué Cook MD [place] [id number] [facility] 05/11/2024 4:00 PM Kimberly Nicolas MD [facility] CAM 6C 09/23/2024 2:00 PM Teofilo Tang MD [facility] CAR VL Specialty I spent 45 minutes,face [...] reflect the currentclinical condition. Pamela Langston MSN, HEALTHCARE EDUCATOR-[facility] [address] [facility], [address] [place] [address] documented in this encounter Plan of Treatment Not on file documented as of this encounter Visit Diagnoses Diagnosis Vascular dementia without behavioral disturbance (HCC)- Primary documented in this encounter Care Teams Triple Air Valve Tester Relationship Specialty Start Date End Date Servando Torre MD [address] [facility] [address] [place] [address] PCP - General Family Medicine 06/19/22 Mariela Denton MD [address] [place] [address] Referring Physician Gastroenterology 06/19/22 Lexis Barroso OD [address] [place] [address] Php Software Engineer 09/19/22 documented as of this encounter
--- OUTSIDE RECORDS SUMMARY | 2024-08-18 10:59 | XMS_ITS | Encounter Summary ---
Author Organization [facility] Healthcare Address [address] [place] [address] Care Team Providers Care Wound Care Technician Name Role Phone Servando Torre MD Primary Care Provider Mariela Denton MD Unavailable +1 [phone] Lexis Barroso OD Unavailable +1- [phone] Encounter Details Date Type Department Care Team (Late st Contact Info) Description 02/18/2024 Telephone [facility] Medical Group Primary Care at [address] [address] Servando Torre MD [address] [place] [address] [address] [place] [address] Social History Tobacco Use Types [...] on file Legal Sex Female 9:30 AM CAPACITY PLANNING ANALYST Gender Identity Female 04/05/2022 6:17 PM CDT Sexual Orientation Straight 04/05/2022 6: 17 PM CDT documented as of this encounter Miscellaneous Notes * Telephone Encounter - Shelia Cobb - 02/18/2024 1:12 PM CDT Opened message in error documented in this encounter Plan of Treatment Not on file documented as of this encounter Visit Diagnoses Not on filedocumented in this encounter Care Teams Wound Care Technician Relationship Specialty Start Date End Date Servando Torre MD [facility] [address] [address] PCP - General Family Medicine 06/19/22 Mariela Denton MD [address] [place] [address] Referring Physician Gastroenterology 06/19/22 Lexis Barroso OD [address] [place] [address] Waste Chopper 09/19/22 documented as of this encounter
--- OUTSIDE RECORDS SUMMARY | 2024-08-18 10:59 | XMS_ITS | Encounter Summary ---
Author Organization [facility] Address [address] [place] [address] Phone Care Team Providers Care Records Technician Name Role Phone Servando Torre MD Primary Care Provider +1 [phone] Mariela Denton MD Unavailable +1 -[phone] Lexis Barroso OD Unavailable +1- [phone] Encounter Details Date Type Department Care Team (Late st Contact Info) Description 05/05/2024 9:30 AM CDT Office Visit [facility] Epilepsy [address] [facility] 6th [place] [address] [place] [address] Adria Burleson MD [address] [facility] [address] [address] [place] [address] Localization-related symptomatic epilepsy and epileptic [...] on file Legal Sex Female 9:30 AM HUNTER Gender Identity Female 04/05/2022 6:17 PM CDT [...] As a result, she was transported to [facility]. Her Lamictal was increased to 125 [...] /encephalomalacia/gliosis and scattered microhemorrhages and generalized atrophy. [facility] EEG showed right frontotemporal epileptiform discharges [...] history: Epilepsy Risk Factors: Febrile seizure(s): No DIRECTOR FOOD AND BEVERAGE infection: Yes c/b deafness on the R [...] to explain the patient's seizures. -EEG at [facility] on 03/07/2023: This is an abnormal [...] PGY-5 Division of Pediatric & Developmental Neurology [facility] in [place] Seizure precautions including no driving for at [...] Primary documented in this encounter Care Teams Records Technician Relationship Specialty Start Date End Date Servando Torre MD [facility] [address] [address] PCP - General Family Medicine 06/19/22 Mariela Denton MD [address] [place] [address] Referring Physician Gastroenterology 06/19/22 Lexis Barroso OD [address] [place] [address] Electrician Apprentice 09/19/22 documented as of this encounter
--- OUTSIDE RECORDS SUMMARY | 2024-08-18 10:59 | XMS_ITS | Encounter Summary ---
Author Organization [facility] Address [address] [place] [address] Phone Care Team Providers Care Scoop Driver Name Role Phone Servando Torre MD Primary Care Provider +1 [phone] Mariela Denton MD Unavailable +1 [phone] Lexis Barroso OD Unavailable +1- [phone] Encounter Details Date Type Department Care Team (Late st Contact Info) Description 05/05/2024 3:45 PM CDT Office Visit [facility] Gastroenterology [address] [facility] 12th [place] [address] [place] [address] Josué Cook MD [address] 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 Gender Identity Female 04/05/2022 6:17 PM [...] up in April 2025 Josué Cook MD Fashion Design Professorgeneral cargo clerk Department of Gastroenterology [facility] RIFUGAL WAX MOLDER documented in this encounter Plan of Treatment Not on file documented as of this encounter Visit Diagnoses Diagnosis Chronic ulcerative colitis, unspecified complication (HCC)- Primary documented in this encounter Care Teams Scoop Driver Relationship Specialty Start Date End Date Servando Torre MD [address] [facility] [address] [place] [address] PCP - General Family Medicine 06/19/22 Mariela Denton MD [address] [place] [address] Referring Physician Gastroenterology 06/19/22 Lexis Barroso OD [address] [place] [address] Ferryboat Deckhand 09/19/22 documented as of this encounter
--- OUTSIDE RECORDS SUMMARY | 2024-08-18 10:59 | XMS_ITS | Encounter Summary ---
Author Organization [facility] Healthcare Address [address] [place] [address] Care Team Providers Care Real Estate Officer Name Role Phone Servando Torre MD Primary Care Provider [phone]- [phone] Mariela Denton MD Unavailable +1 -[phone] Lexis Barroso OD Unavailable +1- [phone] Reason for Referral * Consultation (Routine) - Closed Specialty Diagnoses / Procedures Referred By Contclemencia t Referred To Contact General Surgery Diagnoses Cyst of anterior horn of lateral meniscus of right knee Olga Hernandez NP Phone: tel: fax: Marcell Brown MD [address] [place] [address] [address] Phone: tel: fax: Referral ID Status Reason Start Date Expiration Date V isits Requested Visits Authorized [id number] Closed Specialty Services Required 01/19/2024 02/17/2025 1 1 Question Answer Please select the performing region: [facility] Medical Group [[id number]] Please select the performing department: [facility] SURGERY [[id number]] Comments [place] location Reason for Visit * Reason Comments Mass Pt is c/o 'bump' on right knee. It is painful. Appeared about 1 wk ago. No injury Encounter Details Date Type Department Care Team (Late st Contact Info) Description 01/19/2024 2:30 PM CDT Office Visit [facility] Medical Group Primary Care at [address] [address] Olga Hernandez, CONSTANZA [address] 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 Nurses at her [place] facility stated they could feel fluid behind the bump(believe its a cyst). No other complaints or symptoms associated Knee Pain The incident occurred 5 to 7 days ago. The incident occurred at a [facility]. There was no injurymechanism. The pain is [...] [facility] under 'Procedures' tab)., Disp: 1 each, [...] Primary documented in this encounter Care Teams Real Estate Officer Relationship Specialty Start Date End Date Servando Torre MD [address] [address] PCP - General Family Medicine 06/19/22 Mariela Denton MD [address] [place] [address] Referring Physician Gastroenterology 06/19/22 Lexis Barroso OD [address], [place] [address] Baked And Graphite Inspector 09/19/22 documented as of this encounter
--- OUTSIDE RECORDS SUMMARY | 2024-08-18 10:59 | XMS_ITS | Encounter Summary ---
Author Organization [facility] Address [address] [place] [address] Care Team Providers Care Dental Instructor Name Role Phone Servando Torre MD Primary Care Provider [phone] Mariela Denton MD Unavailable [phone] [phone] Lexis Barroso OD Unavailable +1- [phone] Reason for Referral * Consultation (Routine) - Closed Specialty Diagnoses / Procedures Referred By Contclemencia t Referred To Contact Orthopedic Surgery Diagnoses Knee joint cyst, right Olga Hernandez NP Phone: tel: fax: Tierney Mcdaniel MD [address] [place] [address] Phone: tel: Referral ID Status Reason Start Date Expiration Date V isits Requested Visits Authorized [id number] Closed Specialty Services Required 01/21/2024 02/19/2025 1 1 Question Answer Please select the performing region: [facility] [[id number]] Please select the performing department: [facility] [[id number]] To provider: TIERNEY MCDANIEL [[id number]] # of visits: 1 Encounter Details Date Type Department Care Team (Late st Contact Info) Description 01/21/2024 Orders Only [facility] Primary Care at [address] [address] Olga Hernandez NP [address] [place] [address] Knee joint cyst, right (Primary Dx) Social [...] on file Legal Sex Female 9:30 AM 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
--- OUTSIDE RECORDS SUMMARY | 2024-08-18 10:59 | XMS_ITS | Encounter Summary ---
Author Organization [facility] Address [address] [place] [address] Phone Care Team Providers Care Senior Environmental Consultant Name Role Phone Servando Torre MD Primary Care Provider [phone]- [phone] Mariela Denton MD Unavailable +1 [phone] Lexis Barroso OD Unavailable +1- [phone] Encounter Details Date Type Department Care Team (Late st Contact Info) Description 10/29/2023 1:00 PM CDT Office Visit [facility] Gastroenterology [address] 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 Gender Identity Female 04/05/2022 6:17 PM [...] up in April 2024 Josué Cook MD University Relations Vice Presidentlaw firm administrator Department of Gastroenterology [facility] [...] as of this encounter Care Teams Senior Environmental Consultant Relationship Specialty Start Date End Date Servando Torre MD [address] [address] PCP - General Family Medicine 06/19/22 Mariela Denton MD [address] [place] [address] Referring Physician Gastroenterology 06/19/22 Lexis Barroso OD [address] [place] [address] Child Study Team Director 09/19/22 documented as of this encounter
--- OUTSIDE RECORDS SUMMARY | 2024-08-18 10:59 | XMS_ITS | Encounter Summary ---
Author Organization [facility] Address [address] [place] [address] Phone Care Team Providers Care Internal Control Analyst Name Role Phone Servando Torre MD Primary Care Provider [phone] Mariela Denton MD Unavailable + [phone] Lexis Barroso OD Unavailable [phone]- [phone] Reason for Visit * Reason Onset Date Comments Med Management (Renewal Entyvio Auth/Order) 03/2024 No Auth Required 04/05/2024 Encounter Details Date Type Department Care Team (Late st Contact Info) Description 04/05/2024 Telephone [facility] Gastroenterology [address] [facility] 12th [place] [address] [place] [address] Janice Baez LPN Med Management [...] on file Legal Sex Female 9:30 AM SUBMARINE DIVER Gender Identity Female 04/05/2022 6:17 PM CDT Sexual Orientation Straight 04/05/2022 6: 17 PM CDT documented as of this encounter Miscellaneous Notes * Telephone Encounter - Janice Baez LPN - 04/06/2024 10:31 AM CDT Below auth info has been faxed to local infusion team at . -------Fax Transmission Report------- To: Recipient at [id number] Subject: AC - Authorization [Secure] Result: The transmission was successful. Explanation: All Pages Ok Pages Sent: 3 Connect Time: 1 minutes, 39 seconds Transmit Time: 04/06/2024 12:03 Transfer Rate: 9600 Status Code: 0000 Retry Count: 0 Job Id: [id number] Unique Id: [id number] Fax Line: 2 Fax Relationship Manager: [id number] * Telephone Encounter - Eron Chacha [place] - 04/06/2024 9:59 AM CDT SPECIALTY DRUG INFUSION AUTHORIZATION Patient: Lisa Allen : 1945 Ordering Physician: ANJANA MARIE #: [id number] DRUG NAME: ENTYVIO DOSE/FREQUENCY: 300MG IVP Q 8 WEEKS CPT/ADMIN CODE(S): J3380, 26096, 43910 DX CODE(S): K51.919 LOCATION: [address] [place] [address] PHONE #[phone], FAX #[phone] TAX ID #[id number], NPI #[id number] Primary Insurance: MCR ID # [id number] Group # Ins Phone # RTDidi, 04/06/2024 [...] Ins Rep Name: MICHAEL Denson Phone #: [phone] Date Called: 04/06/2024 Call ref #: [id number] PCP Referral required? Referral number/visits/valid dates: Is [...] up. -------Fax Transmission Report------- To: Recipient at [id number] Subject: AC - Renewal Entyvio Order [Secure] Result: The transmission was successful. Explanation: All Pages Ok Pages Sent: 3 Connect Time: 1 minutes, 34 seconds Transmit Time: 04/05/2024 10:50 Transfer Rate: 9600 Status Code: 0000 Retry Count: 0 Job Id: [id number] Unique Id: [id number] Fax Line: 3 Fax Relationship Manager: [id number] documented in this encounter Plan of Treatment Not on file documented as of this encounter Visit Diagnoses Diagnosis Chronic ulcerative colitis, unspecified complication (HCC)- Primary documented in this encounter Orders Procedures Count Last Ordered Date First Orde red Date ONCBCN OUTPATIENT FACILITY ORDERS 1 024 documented in this encounter Care Teams Internal Control Analyst Relationship Specialty Start Date End Date Servando Torre MD [address] [address] PCP - General Family Medicine 06/19/22 Mariela Denton MD [address] [facility] [address] [place] [address] Referring Physician Gastroenterology 06/19/22 Lexis Barroso OD [address] [place] [address] Employee Relations Advisor 09/19/22 documented as of this encounter
--- OUTSIDE RECORDS SUMMARY | 2024-08-18 10:59 | XMS_ITS | Encounter Summary ---
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 1 each 5 04/29/2023 acetaminophen (acetaminophen Extra Strength) 500 mg tablet Take 1 tablet (500 mg total) by mouth every 6 (six) hours as needed 09/30/2022 4 busPIRone (BUSPAR) 5 mg tabletIndications:Ge neralized Anxiety Disorder Take 1 tablet (5 mg total) by mouth 2 (two) times a day 60 tablet 2 07/07/2023 4 pravastatin (PRAVACHOL) 40 mg tabletIndications:Mi xed diabetic hyperlipidemia associated with type 2 diabetes mellitus (HCC) Take 1 tablet (40 mg total) by mouth nightly 01/01/2024 4 rivastigmine (EXELON) 4.6 mg/[address] 4.6 mg on the skin daily 30 patch 1 11/17/2023 4 lamoTRIgine (LaMICtal) 200 mg tablet 04/27/2024 lamoTRIgine (LaMICtal) 150 mg tablet Take 1 tablet (150 mg total) by mouth 2 (two) times a day 180 tablet 1 04/01/2024 4 lamoTRIgine (LaMICtal) 25 mg tablet 04/17/2024 4 documented as of this encounter Discharge [...] CDT) Lamotrigine 6.3 3.0 - 15.0 mcg/mL [facility] Comment: ADDITIONAL INFORMATION This test was developed and its performance characteristics determined by [facility] in a manner consistent with CLIA requirements. This test has not been cleared or approved by the U.S. Food and Drug Administration. Test Performed by: [facility] [place] [address] Coat Joiner: Liu Davis Ph.D.; CLIA# [id number] Blood 04/27/2024 11:5 2 AM CDT 04/27/2024 7:35 PM CDT us Adria Diop MD LAB BLOOD OR DERABLES Final Result Performing Organization Address City/State/[facility] Co de Phone Number AILEEN [address] Department [place] [address] [facility] documented in this encounter Visit Diagnoses Diagnosis Localization-related symptomatic epilepsy and epileptic syndromes with complex partial seizures, not intractable, without status epilepticus (HCC) documented in this encounter Care Teams Hole Digger Relationship Specialty Start Date End Date Servando Torre MD [address] [address] PCP - General Family Medicine 06/19/22 Mariela Denton MD [address] [place] [address] Referring Physician Gastroenterology 06/19/22 Lexis Barroso OD [address] [place] [address] Through Freight Engineer 09/19/22 documented as of this encounter
--- OUTSIDE RECORDS SUMMARY | 2024-08-18 10:59 | XMS_ITS | Encounter Summary ---
Author Organization [facility] Healthcare Address [address] [place] [address] Care Team Providers Care Ultrasound Technol Name Role Phone Servando Torre MD Primary Care Provider Mariela Denton MD Unavailable +1 -[phone] Lexis Barroso OD Unavailable +1- [phone] Reason for Visit * Reason Onset Date Comments Medical Question/Miscellaneous 03/30/2024 Encounter Details Date Type Department Care Team (Late st Contact Info) Description 03/30/2024 Telephone [facility] Medical Group Primary Care at [address] [address] Servando Torre MD [address] [place] [address] [address] [place] [address] Medical Question/Miscellaneous Social History Tobacco [...] file Legal Sex Female 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 [address] [address] PCP - General Family Medicine 06/19/22 Mariela Denton MD [address] [place] [address] Referring Physician Gastroenterology 06/19/22 Lexis Barroso OD [address] [place] [address] Licensed Journeyman Electrician 09/19/22 documented as of this encounter
--- OUTSIDE RECORDS SUMMARY | 2024-08-18 10:59 | XMS_ITS | Encounter Summary ---
Author Organization [facility] Healthcare Address [address] [place] [address] Care Team Providers Care Heating Element Winder Name Role Phone Servando Torre MD Primary Care Provider +1- [phone] Mariela Denton MD Unavailable +1 -[phone] Lexis Barroso OD Unavailable +1- [phone] Encounter Details Date Type Department Care Team (Latest Contact Info) Description 03/30/2024 9:26 AM CDT - 03/30/2024 11:59 PM CDT Hospital Encounter [facility] [address] [place] [address] Mixed diabetic hyperlipidemia associated with [...] file Legal Sex Female 9:30 AM CLINICAL RESEARCH NURSE COORDINATOR Gender Identity Female 04/05/2022 6:17 PM [...] nightly 01/01/2024 vedolizumab (ENTYVIO) 300 mg recon solnIndications:Curtain Stretcher Assembler roberto ulcerative colitis, unspecified complication (HCC) Infuse 5 mL (300 mg total) into a venous catheter every 8 (eight) weeks Infused at: [facility] (OSF order in Epic under [...] skin daily 30 patch 1 11/17/2023 4 lacosamide (VIMPAT ORAL) Take by mouth 4 lamoTRIgine (LaMICtal) 100 mg tablet Take 1 tablet (100 mg total) by mouth 2 (two) times a day 180 tablet 1 01/12/2024 4 lamoTRIgine (LaMICtal) 150 mg tablet Take 1 tablet (150 mg total) by mouth 2 (two) times a day 180 tablet 1 04/01/2024 4 documented as of this encounter Discharge [...] MD LAB BLOOD ORDERABLES Final Result [facility] [address] [place] [address] * Differential, auto (03/30/2024 9:26 AM CDT) Neutrophil abs 5.4 1.5 - 6.5 K/cumm Imm gran abs 0.1 0.0 - 0.1 K/cumm [facility] Lymphocyte abs 1.8 0.8 - 3.3 K/cumm [facility] Monocyte abs 0.8 0.2 - 0.8 K/cumm [facility] Eosinophil abs 0.3 0.0 - 0.5 K/cumm [facility] Basophil abs 0.1 0.0 - 0.1 K/cumm [facility] Neutrophil pct 64.8 % [facility] Comment: Interpretive Data Percent cell count reference ranges are not reported, since discordance with absolute values may lead to misinterpretation of CBC data. Current Interpretive Data was last revised on 2017. Imm gran pct 0.6 % [facility] Comment: Interpretive Data Percent cell count reference ranges are not reported, since discordance with absolute values may lead to misinterpretation of CBC data. Current Interpretive Data was last revised on 2017. Lymphocyte pct 21.4 % [facility] Comment: Interpretive Data Percent cell count reference ranges are not reported, since discordance with absolute values may lead to misinterpretation of CBC data. Current Interpretive Data was last revised on 2017. Monocyte pct 9.6 % [facility] Comment: Interpretive Data Percent cell count [...] MD LAB BLOOD ORDERABLES Final Result [facility] [address] [place] [address] * (ABNORMAL) CBC with auto differential (03/30/2024 9:26 AM CDT) WBC 8.4 3.8 - 9.9 K/cumm Hgb 14.9 11.9 - 15.5 g/dL [facility] Hct 47.6(H) 35.6 - 45.5 % [facility] Plt 308 150 - 400 K/cumm [facility] MPV 9.6 9.1 - 12.3 fL [facility] RBC 5.14 3.90 - 5.20 M/cumm [facility] MCV 92.6 81.3 - 96.4 fL [facility] MCH 29.0 27.1 - 33.3 pg [facility] MCHC 31.3(L) 32.3 - 35.7 g/dL [facility] RDW CV 12.8 11.1 - 14.9 % [facility] RDW SD 43.6 35.7 - 48.1 fL [facility] NRBC abs 0.00 0.00 - 0.01 K/cumm [facility] Blood 03/30/2024 9:26 AM CDT 03/30/2024 4:55 PM CDT us Servando Torre MD LAB BLOOD ORDERABLES Final Result [facility] [address] [place] [address] * Comprehensive metabolic panel (03/30/2024 9:26 AM [...] LAB BLOOD ORDERABLES Final Result [facility] [address] [place] [address] * (ABNORMAL) Hemoglobin A1c (03/30/2024 9:26 AM CDT) Pathologist [facility] Hgb A1C 6.8(H) 4.0 - 5.6 % Estimated Average Glucose 148 mg/dL [facility] Comment: The ADA recommends reporting an estimated Average Glucose (eAG) with all Hemoglobin A1c results using the equation derived from a study of 507 normal and diabetic adults. ??Minority populations were underrepresented and children were not included. ?? (Diabetes Care 31:2147-4265, 2008). ??The eAG is not equivalent to a fasting glucose. Blood 03/30/2024 9:26 AM CDT 03/30/2024 4:55 PM CDT Servando Torre MD LAB BLOOD ORDERABLES Final Result Performing Organization Address [facility]/State/[facility] Co de Phone Number AILEEN [address] [place] [address] * (ABNORMAL) Lipid panel (03/30/2024 9:26 AM CDT) Pathologist [facility] Cholesterol 196 30 - 199 mg/dL Comment: [...] LAB BLOOD ORDERABLES Final Result [facility] [address] Department [place] [address] documented in this encounter Visit Diagnoses Diagnosis Mixed diabetic hyperlipidemia associated with type 2 diabetes mellitus (HCC) Hypertension associated with diabetes (HCC) Unspecified essential hypertension documented in this encounter Care Teams Heating Element Winder Relationship Specialty Start Date End Date Servando Torre MD [facility] [address] PCP - General Family Medicine 06/19/22 Mariela Denton MD [address] [facility] [address] [place] [address] Referring Physician Gastroenterology 06/19/22 Lexis Barroso OD [address] [place] [address] Tunnel Elastic Operator Zigzag 09/19/22 documented as of this encounter
--- OUTSIDE RECORDS SUMMARY | 2024-08-18 10:59 | XMS_ITS | Encounter Summary ---
Author Organization [facility] Address [address] [place] [address] Phone Care Team Providers Care Transplant Immunologist Name Role Phone Servando Torre MD Primary Care Provider +1 [phone] Mariela Denton MD Unavailable +1 -[phone] Lexis Barroso OD Unavailable +1- [phone] Encounter Details Date Type Department Care Team (Late st Contact Info) Description 04/02/2024 Telephone [facility] Epilepsy [address] [facility] [address] [place] [address] [place] [address] Sherita Licona, ELMO Social History [...] file Legal Sex Female 9:30 AM BARREL MARKER Gender Identity Female 04/05/2022 6:17 PM CDT [...] on filedocumented in this encounter Care Teams Transplant Immunologist Relationship Specialty Start Date End Date Servando Torre MD [address] [place] [address] PCP - General Family Medicine 06/19/22 Mariela Denton MD [facility] [address] [place] [address] Referring Physician Gastroenterology 06/19/22 Lexis Barroso OD [address] [place] [address] Scale Agent 09/19/22 documented as of this encounter
--- OUTSIDE RECORDS SUMMARY | 2024-08-18 10:59 | XMS_ITS | Encounter Summary ---
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 Gender Identity Female 04/05/2022 6:17 PM CDT Sexual Orientation Straight 04/05/2022 6: 17 PM CDT documented as of this encounter Plan of Treatment Not on file documented as of this encounter Visit Diagnoses Not on filedocumented in this encounter Care Teams Angular Js Developer Relationship Specialty Start Date End Date Servando Torre MD [address] [facility] [address] [place] [address] PCP - General Family Medicine 06/19/22 Mariela Denton MD [address] [facility] [address] [place] [address] Referring Physician Gastroenterology 06/19/22 Lexis Barroso OD [address] [place] [address] Phthalic Acid Purifier 09/19/22 documented as of this encounter
--- OUTSIDE RECORDS SUMMARY | 2024-08-18 10:59 | XMS_ITS | Encounter Summary ---
Author Organization [facility] Healthcare Address [address] [place] [address] Care Team Providers Care Horse Race Timer Name Role Phone Servando Torre MD Primary Care Provider +1- [phone] Mariela Denton MD Unavailable +1 -[phone] Lexis Barroso OD Unavailable +1- [phone] Encounter Details Date Type Department Care Team (Late st Contact Info) Description 10/02/2023 Telephone [facility] Medical Group Primary Care at [address] [address] Regina Loo MA Social History [...] on file Legal Sex Female 9:30 AM MAILING JOGGER Gender Identity Female 04/05/2022 6:17 PM CDT Sexual Orientation Straight 04/05/2022 6: 17 PM CDT documented as of this encounter Miscellaneous Notes * Telephone Encounter - Regina Loo MA - 10/02/2023 10:09 AM MAILING JOGGER Called pt daughter Aby, left message to call the office or view results and Dr Torre's recommendations in my chart ING JOGGER * Telephone Encounter - Regina Loo MA - 10/02/2023 10:09 AM MAILING JOGGER ----- Message from Servando Torre MD sent at 10/01/2023 1:18 PM MAILING JOGGER ----- Please relay: I will have Lisa hold the calcium supplement for now, continue vitamin-D though. Calcium was a little high. Everything else looked pretty good. ING JOGGER documented in this encounter Plan of Treatment Not on file documented as of this encounter Visit Diagnoses Not on filedocumented in this encounter Care Teams Horse Race Timer Relationship Specialty Start Date End Date Servando Torre MD [facility] [address] PCP - General Family Medicine 06/19/22 Mariela Denton MD [address] [place] [address] Referring Physician Gastroenterology 06/19/22 Lexis Barroso OD [address] [place] [address] Recycling Program Manager 09/19/22 documented as of this encounter
--- OUTSIDE RECORDS SUMMARY | 2024-08-18 10:59 | XMS_ITS | Encounter Summary ---
Author Organization [facility] Healthcare Address [address] [place] [address] Care Team Providers Care Hog Scalder Name Role Phone Servando Torre MD Primary Care Provider Mariela Denton MD Unavailable +1 -[phone] Lexis Barroso OD Unavailable +1- [phone] Reason for Visit * Reason Onset Date Comments Recommendation Request 01/20/2024 Encounter Details Date Type Department Care Team (Late st Contact Info) Description 01/20/2024 Telephone [facility] Medical Group Primary Care at [address] [address] Servando Torre MD [address] [place] [address] [address] [place] [address] Recommendation Request Social History Tobacco [...] on file Legal Sex Female 9:30 AM ONION FARMER Gender Identity Female 04/05/2022 6:17 PM [...] 3:07 PM CDT Medical Question/Miscellaneous Caller???s Concern: [facility] does not deal with cysts in the knee. Patient will have to go to Ortho. Does message need to be routed? Yes-Action Needed documented in this encounter Plan of Treatment Not on file documented as of this encounter Visit Diagnoses Not on filedocumented in this encounter Care Teams Hog Scalder Relationship Specialty Start Date End Date Servando Torre MD [address] [address] PCP - General Family Medicine 06/19/22 Mariela Denton MD [address] [place] [address] Referring Physician Gastroenterology 06/19/22 Lexis Barroso OD [address] [place] [address] Wind Turbine Service Technician 09/19/22 documented as of this encounter
--- OUTSIDE RECORDS SUMMARY | 2024-08-18 10:59 | XMS_ITS | Encounter Summary ---
Author Organization [facility] Healthcare Address [address] [place] [address] Care Team Providers Care Telecommunication Engineer Name Role Phone Servando Torre MD Primary Care Provider [phone] Mariela Denton MD Unavailable +1 -[phone] Lexis Barroso OD Unavailable +1- [phone] Reason for Visit * Reason Comments Follow-up 3 month f/u Encounter Details Date Type Department Care Team (Late st Contact Info) Description 01/01/2024 2:00 PM CDT Office Visit [facility] Medical Group Primary Care at [address] [address] Servando Torre MD [address] [place] [address] [address] [place] [address] Hypertension associated with diabetes (HCC) [...] on file Legal Sex Female 9:30 AM SCALLOP CUTTER MACHINE Gender Identity Female 04/05/2022 6:17 PM [...] (40 mg total) by mouth nightly 01/01/2024 pravastatin (PRAVACHOL) 40 mg tabletIndications:Mi xed diabetic hyperlipidemia associated with type 2 diabetes mellitus (HCC) Take 1 tablet (40 mg total) by mouth nightly 01/01/2024 4 losartan (COZAAR) 100 mg tabletIndications:Hy pertension associated with diabetes (HCC) Take 1 tablet (100 mg total) by mouth nightly 01/01/2024 documented in this encounter Progress Notes * [...] venous catheter every8 (eight) weeks [facility] LAB BLOOD ORDERABLES Final Result [facility] [address] Department [place] [address] * (ABNORMAL) Hemoglobin A1c (03/30/2024 [...] children were not included. ?? (Diabetes Care 31:0331-1206, 2008). ??The eAG is not equivalent to a fasting glucose. Blood 03/30/2024 9:26 AM CDT 03/30/2024 4:55 PM CDT Servando Torre MD LAB BLOOD ORDERABLES Final Result [facility] [address] Department [place] [address] * Comprehensive metabolic panel (03/30/2024 9:26 AM [...] BLOOD ORDERABLES Final Result Performing Organization Address City/[facility]/ZIP Co de Phone Number AILEEN MATTHEW [address] [employer] [place] [address] * (ABNORMAL) CBC with auto differential (03/30/2024 9:26 AM CDT) [facility] WBC 8.4 3.8 - 9.9 K/cumm [...] BLOOD ORDERABLES Final Result Performing Organization Address City/[facility]/ZIP Co de Phone Number AILEEN MATTHEW [address] Department of [employer] [place], [place] [id number] * (ABNORMAL) POCT hemoglobin A1c (01/01/2024 2:39 [...] week added in this encounter Care Teams Telecommunication Engineer Relationship Specialty Start Date End Date Servando Torre MD [facility] [address] [place] [address] PCP - General Family Medicine 06/19/22 Mariela Denton MD [address] [place] [address] Referring Physician Gastroenterology 06/19/22 Lexis Barroso OD [address] [place] [address] Direct Support Professional Caregiver 09/19/22 documented as of this encounter
--- OUTSIDE RECORDS SUMMARY | 2024-08-18 10:59 | XMS_ITS | Encounter Summary ---
Author Organization [facility] Healthcare Address [address] [place] [address] Care Team Providers Care Event Sales Representative Name Role Phone Servando Torre MD Primary Care Provider [phone] Mariela Denton MD Unavailable +1 -[phone] Lexis Barroso OD Unavailable +1- [phone] Encounter Details Date Type Department Care Team (Late st Contact Info) Description 2024 Orders Only [facility] Medical Group Primary Care at [address] [address] Servando Torre MD [address] [place] [address] [address] [place] [address] Social History Tobacco Use Types [...] on file Legal Sex Female 9:30 AM FLASH WELDING MACHINE OPERATOR Gender Identity Female 04/05/2022 6:17 [...] 04/01/2024 added in this encounter Care Teams Event Sales Representative Relationship Specialty Start Date End Date Servando Torre MD [address] [facility] [address] [place] [address] PCP - General Family Medicine 06/19/22 Mariela Denton MD [facility] [address] [place] [address] Referring Physician Gastroenterology 06/19/22 Lexis Barroso OD [address] [place] [address] Carbonator 09/19/22 documented as of this encounter
--- OUTSIDE RECORDS SUMMARY | 2024-08-18 10:59 | XMS_ITS | Encounter Summary ---
Author Organization [facility] Healthcare Address [address] [place] [address] Care Team Providers Care Kitchen Manager Name Role Phone Servando Torre MD Primary Care Provider +1- [phone] Mariela Denton MD Unavailable +1 -[phone] Lexis Barroso OD Unavailable +1- [phone] Reason for Visit * Reason Comments Follow-up 3 month f/u Encounter Details Date Type Department Care Team (Late st Contact Info) Description 04/01/2024 2:00 PM CDT Office Visit [facility] Medical Group Primary Care at [address] [address] Servando Torre MD [address] [place] [address] [address] [place] [address] Hypertension associated with diabetes (HCC) [...] on file Legal Sex Female 9:30 AM GLOBAL SALES DIRECTOR Gender Identity Female 04/05/2022 6:17 [...] you have any questions or concerns at [phone]. You may receive a phone call, text, MYCHART message, or e-mail asking about your care today. We would love to hear your feedback on how EXCELLENT your care wastoday! Wishing you better health, always. Dr. Torre * Attachments The following attachments cannot be sent through Care Everywhere. * Meal Planning with Diabetes Exchanges (Livestock Trucker) (Japanese) documented in this encounter Progress Notes * [...] [facility] (OSF order in Psychiatric under 'Procedures' tab). 1 each 5 acetaminophen [...] 04/09/2024 added in this encounter Care Teams Kitchen Manager Relationship Specialty Start Date End Date Servando Torre MD [address] [address] PCP - General Family Medicine 06/19/22 Mariela Denton MD [address] [place] [address] Referring Physician Gastroenterology 06/19/22 Lexis Barroso OD [address] [place] [address] Director Writing 09/19/22 documented as of this encounter
--- OUTSIDE RECORDS SUMMARY | 2024-08-18 10:59 | XMS_ITS | Encounter Summary ---
Author Organization [facility] Healthcare Address [address] [place] [address] Care Team Providers Care Production Material Handler Name Role Phone Servando Torre MD Primary Care Provider Mariela Denton MD Unavailable +1 -[phone] Lexis Barroso OD Unavailable +1- [phone] Reason for Visit * Reason Onset Date Comments Medical Records Request 02/18/2024 Encounter Details Date Type Department Care Team (Late st Contact Info) Description 02/18/2024 Telephone [facility] Medical Group Primary Care at [address] [address] Servando Torre MD [address] [place] [address] [address] [place] [address] Medical Records Request Social History [...] on file Legal Sex Female 9:30 AM AUTOMOTIVE PAINTER Gender Identity Female 04/05/2022 6:17 PM CDT Sexual Orientation Straight 04/05/2022 6: 17 PM CDT documented as of this encounter Miscellaneous Notes * Telephone Encounter - Lexis Jhaveri MA - 02/26/2024 11:32 AM CDT Records upfront for quill picking machine operator. LMOM letting pt's daughter know * [...] Needed: as soon as possible Delivery Method: supervisor files at practice Additional Comments: Pt daughter is [...] on filedocumented in this encounter Care Teams Production Material Handler Relationship Specialty Start Date End Date Servando Torre MD [address] [address] PCP - General Family Medicine 06/19/22 Mariela Denton MD [address] [place] [address] Referring Physician Gastroenterology 06/19/22 Lexis Barroso OD [address] [place] [address] Rolling Mill Plugger 09/19/22 documented as of this encounter
--- OUTSIDE RECORDS SUMMARY | 2024-08-18 10:59 | XMS_ITS | Encounter Summary ---
Author Organization [facility] Address [address] [place] [address] Phone Care Team Providers Care 4Th Grade Math Teacher Name Role Phone Servando Torre MD Primary Care Provider +1 [phone] Mariela Denton MD Unavailable +1 -[phone] Lexis Barroso OD Unavailable +1- [phone] Encounter Details Date Type Department Care Team (Late st Contact Info) Description 01/12/2024 4:30 PM CDT Office Visit [facility] Epilepsy [address] [facility] 6th [place] [address] [place] [address] Adria Burleson MD [address] [facility] [address] [place] [address] Seizure (HCC) (Primary Dx) Social [...] file Legal Sex Female 9:30 AM MAJOR ASSEMBLER Gender Identity Female 04/05/2022 6:17 PM [...] history: Epilepsy Risk Factors: Febrile seizure(s): No PROOF SORTER infection: 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 -EEG at [facility] on 03/07/2023: This is an abnormal awake [...] fr ontotemporal epileptiform discharges and slowing. Cedric vt'ed due to agitations and sleepiness, tolerating LTG [...] of this encounter Care Teams 4Th Grade Math Teacher Relationship Specialty Start Date End Date Servando Torre MD [address] [facility] 130 [place] [address] PCP - General Family Medicine 06/19/22 Mariela Denton MD [address] [facility] [address] [place] [address] Referring Physician Gastroenterology 06/19/22 Lexis Barroso OD [address] [place] [address] Galley Hand 09/19/22 documented as of this encounter
--- OUTSIDE RECORDS SUMMARY | 2024-08-18 10:59 | XMS_ITS | Encounter Summary ---
Author Organization [facility] Healthcare Address [address] [place] [address] Care Team Providers Care Finished Metal Repairer Name Role Phone Servando Torre MD Primary Care Provider Mariela Denton MD Unavailable +1 -[phone] Lexis Barroso OD Unavailable +1- [phone] Reason for Visit * Reason Onset Date Comments Medical Question/Miscellaneous 04/23/2024 Encounter Details Date Type Department Care Team (Late st Contact Info) Description 04/23/2024 Telephone [facility] Medical Group Primary Care at [address] [address] Servando Torre MD [address] [place] [address] [address] [place] [address] Medical Question/Miscellaneous Social History Tobacco [...] file Legal Sex Female 9:30 AM COMMUNITY NUTRITION EDUCATOR Gender Identity Female 04/05/2022 6:17 PM CDT [...] on filedocumented in this encounter Care Teams Finished Metal Repairer Relationship Specialty Start Date End Date Servando Torre MD [address] [address] PCP - General Family Medicine 06/19/22 Mariela Denton MD [facility] [address] [place] [address] Referring Physician Gastroenterology 06/19/22 Lexis Barroso OD [address] [place] [address] Director Hr Communications 09/19/22 documented as of this encounter
--- OUTSIDE RECORDS SUMMARY | 2024-08-18 10:59 | XMS_ITS | Encounter Summary ---
Author Organization [facility] Address [address] [place] [address] Phone Care Team Providers Care Scrap Metal Processing Worker Name Role Phone Servando Torre MD Primary Care Provider +1 [phone] Mariela Denton MD Unavailable +1 -[phone] Lexis Barroso OD Unavailable +1- [phone] Encounter Details Date Type Department Care Team [...] on file Legal Sex Female 9:30 AM V BELT CURER Gender Identity Female 04/05/2022 6:17 PM CDT [...] on filedocumented in this encounter Care Teams Scrap Metal Processing Worker Relationship Specialty Start Date End Date Servando Torre MD [facility] [address] PCP - General Family Medicine 06/19/22 Mariela Denton MD [facility] [address] [place] [address] Referring Physician Gastroenterology 06/19/22 Lexis Barroso OD [address] [place] [address] Labor Delivery Rn 09/19/22 documented as of this encounter
--- OUTSIDE RECORDS SUMMARY | 2024-08-18 10:59 | XMS_ITS | Encounter Summary ---
Author Organization [facility] Healthcare Address [address] [place] [address] Care Team Providers Care Wooden Boat Builder Name Role Phone Servando Torre MD Primary Care Provider +1- [phone] Mariela Denton MD Unavailable +1 -[phone] Lexis Barroso OD Unavailable +1- [phone] Reason for Referral * Procedure (Routine) - Authorized Specialty Diagnoses / Procedures Referred By Contac t Referred To Contact Diagnoses Primary osteoarthritis of both knees Procedures Large Joint (Hip, Knee, Shoulder) Injection: bilateral knee Riri Gonzalez PA [address] [facility], [place] [address] Phone: tel: fax: [facility] Medical Group Referral ID Status Reason Start Date Expiration Date V isits Requested Visits Authorized [id number] Authorized 10/21/2023 11/19/2024 1 1 Reason for Visit * Reason Comments Pain Pain Encounter Details Date Type Department Care Team (Late st Contact Info) Description 10/07/2023 9:00 AM CDT Office Visit [facility] Medical Group Orthopedic and Sports Medicine [address] [place] [address] Riri Gonzalez PA [address] [facility] [place] [address] Primary osteoarthritis of both knees (Primary Dx) [...] on file Legal Sex Female 9:30 AM MAIL DISTRIBUTOR Gender Identity Female 04/05/2022 6:17 PM [...] Procedure Name Priority Date/Time Associated Diagnosis Comments DC ARTHROCENTESIS ASPIR&/INJ MAJOR JT/BURSA W/O US Routine 10/07/2023 9:00 AM CDT Primary osteoarthritis of both knees documented in this encounter Results * DC ARTHROCENTESIS ASPIR&/INJ MAJOR JT/BURSA W/O US (10/07/2023 [...] mg documented in this encounter Care Teams Wooden Boat Builder Relationship Specialty Start Date End Date Servando Torre MD [address] [facility] 130 [place] [address] PCP - General Family Medicine 06/19/22 Mariela Denton MD [facility] [facility] [address] [place] [address] Referring Physician Gastroenterology 06/19/22 Lexis Barroso OD [address] [place] [address] Sanitation Director 09/19/22 documented as of this encounter
--- OUTSIDE RECORDS SUMMARY | 2024-08-18 10:59 | XMS_ITS | Encounter Summary ---
Author Organization [facility] Healthcare Address [address] [place] [address] Care Team Providers Care Sole Buffer Name Role Phone Servando Torre MD Primary Care Provider +1- [phone] Mariela Denton MD Unavailable [phone] -[phone] Lexis Barroso OD Unavailable +1- [phone] Encounter Details Date Type Department Care Team (Late st Contact Info) Description 03/30/2024 9:[address] [facility] Medical Group Outpatient Lab at [address] [address] Anemia (Primary Dx) Social History [...] on file Legal Sex Female 9:30 AM MONUMENT ERECTOR Gender Identity Female 04/05/2022 6:17 PM CDT Sexual Orientation Straight 04/05/2022 6: 17 PM CDT documented as of this encounter Plan of Treatment Not on file documented as of this encounter Visit Diagnoses Diagnosis Anemia- Primary Unspecified anemia documented in this encounter Care Teams Sole Buffer Relationship Specialty Start Date End Date Servando Torre MD [address] [address] PCP - General Family Medicine 06/19/22 Mariela Denton MD [address] [place] [address] Referring Physician Gastroenterology 06/19/22 Lexis Barroso OD [address] [place] [address] Popped Corn Oven Attendant 09/19/22 documented as of this encounter
--- OUTSIDE RECORDS SUMMARY | 2024-08-18 11:00 | XMS_ITS | Encounter Summary ---
Author Organization [facility] Healthcare Address [address] [place] [address] Care Team Providers Care Undercollar Maker Name Role Phone Servando Torre MD Primary Care Provider +1- [phone] Mariela Denton MD Unavailable +1 -[phone] Lexis Barroso OD Unavailable +1- [phone] Reason for Referral * Consultation (Routine) - Closed Specialty Diagnoses / Procedures Referred By Contclemencia t Referred To Contact Orthopedic Surgery Diagnoses Chronic pain of both knees Olga Hernandez NP Phone: tel: fax: Michael Gonzalez PA [address] [place] [address] [address] Phone: tel: fax: Referral ID Status Reason Start Date Expiration Date V isits Requested Visits Authorized [id number] Closed Specialty Services Required 08/07/2023 09/05/2024 1 1 Question Answer Please select the performing region: [facility] Medical Group [[id number]] Please select the performing department: [facility] [[id number]] To provider: MICHAEL GONZALEZ [[id number]] # of visits: 1 KE MAN Reason for Visit * Reason Comments Cough 10 days, chest pain, disturbing sleep Nasal Congestion Encounter Details Date Type Department Care Team (Late st Contact Info) Description 08/07/2023 3:30 PM INTAKE MAN Office Visit [facility] Medical Group Primary Care at [address] [address] Olga Hernandez NP [address] [facility] 130 [place] [address] Chronic pain of both knees [...] on file Legal Sex Female 9:30 AM INTAKE MAN Gender Identity Female 04/05/2022 6:17 PM CDT Sexual Orientation Straight 04/05/2022 6: 17 PM CDT documented as of this encounter Last Filed Vital Signs Vital Sign Reading Time Taken Comments Blood Pressure 104/58 08/07/2023 3:32 PM INTAKE MAN Pulse 64 08/07/2023 3:32 PM INTAKE MAN Temperature 36.7 ??C (98.1 ??F) 08/07/2023 3:32 PM CS T Respiratory Rate - - Oxygen Saturation 98% 08/07/2023 3:32 PM INTAKE MAN Inhaled Oxygen Concentration - - Weight 67.5 kg (148 lb 14.4 oz) 08/07/2023 3:32 PM INTAKE MAN Height 157.5 cm (5' 2 ) 08/07/2023 3:32 PM INTAKE MAN Body Mass Index 27.23 08/07/2023 3:32 PM INTAKE MAN documented in this encounter Ordered Prescriptions Prescription [...] this encounter Progress Notes * Olga Hernandez, EMERGENCY ROOM REGISTERED NURSE - 08/07/2023 3:30 PM CST Images from [...] symptoms aren't resolving. Doxycycline Olga Hernandez NP KE MAN documented in this encounter Plan of Treatment Scheduled Referrals Name Type Priority Associated Diagnoses Order Schedule Ambulatory referral to Orthopedic Surgery Outpatient Referral Routine Chronic pain of both knees Expected: 08/21/2023 (Approximate), Expires: 08/07/2024 documented as of this encounter Visit Diagnoses Diagnosis Chronic pain of both knees- Primary Acute non-recurrent frontal sinusitis documented in this encounter Care Teams Undercollar Maker Relationship Specialty Start Date End Date Servando Torre MD [address] [facility] 130 [place] [address] PCP - General Family Medicine 06/19/22 Mariela Denton MD [address] [place] [address] Referring Physician Gastroenterology 06/19/22 Lexis Barroso OD [address] [place] [address] Solar Sales Consultant 09/19/22 documented as of this encounter
--- OUTSIDE RECORDS SUMMARY | 2024-08-18 11:00 | XMS_ITS | Encounter Summary ---
Author Organization [facility] Healthcare Address [address] [place] [address] Care Team Providers Care Breakfast Attendant Name Role Phone Servando Torre MD Primary Care Provider +1- [phone] Mariela Denton MD Unavailable +1 -[phone] Lexis Barroso OD Unavailable +1- [phone] Encounter Details Date Type Department Care Team (Late st Contact Info) Description 09/30/2023 2:00 PM ANESTHESIOLOGY CRNA Lab [facility] Medical Group Outpatient Lab at [address] [address] Diabetes mellitus (HCC) (Primary Dx); [...] on file Legal Sex Female 9:30 AM ANESTHESIOLOGY CRNA Gender Identity Female 04/05/2022 6:17 PM CDT [...] (HCC) documented in this encounter Care Teams Breakfast Attendant Relationship Specialty Start Date End Date Servando Torre MD [address] [address] PCP - General Family Medicine 06/19/22 Mariela Denton MD [address] [place] [address] Referring Physician Gastroenterology 06/19/22 Lexis Barroso OD [address] [place] [address] Porcelain Enameler 09/19/22 documented as of this encounter
--- OUTSIDE RECORDS SUMMARY | 2024-08-18 11:00 | XMS_ITS | Encounter Summary ---
Author Organization [facility] Healthcare Address [address] [place] [address] Care Team Providers Care Commercial Loan Processor Name Role Phone Servando Torre MD Primary Care Provider Mariela Denton MD Unavailable +1 -[phone] Lexis Barroso OD Unavailable +1- [phone] Reason for Visit * Reason Onset Date Comments Paperwork to be filled out 07/17/2023 Encounter Details Date Type Department Care Team (Late st Contact Info) Description 07/17/2023 Telephone [facility] Medical Group Primary Care at [address] [address] Servando Torre MD [address] [place] [address] [address] [place] [address] Paperwork to be filled out [...] Legal Sex Female 9:30 AM CENTRAL OFFICE EQUIPMENT ENGINEER Gender Identity Female 04/05/2022 6:17 PM CDT Sexual Orientation Straight 04/05/2022 6: 17 PM CDT documented as of this encounter Miscellaneous Notes * Telephone Encounter - Regina Loo MA - 07/18/2023 10:59 AM CENTRAL OFFICE EQUIPMENT ENGINEER Forms completed and pt granddasha Duarte notified, forms placed at check in desk RAL OFFICE EQUIPMENT ENGINEER * Telephone Encounter - Regina Loo MA - 07/17/2023 10:40 AM CENTRAL OFFICE EQUIPMENT ENGINEER Physician Assessment Certification form received and placed on Dr Torre's desk RAL OFFICE EQUIPMENT ENGINEER * Telephone Encounter - David Everett - 07/17/2023 9:27 AM CST Pt wilma Duarte came in and dropped off papers that need to be filled out. She would like a call to pick them up when they are filled out. She can be reached at [phone] RAL OFFICE EQUIPMENT ENGINEER documented in this encounter Plan of Treatment Not on file documented as of this encounter Visit Diagnoses Not on filedocumented in this encounter Care Teams Commercial Loan Processor Relationship Specialty Start Date End Date Servando Torre MD [address] [address] PCP - General Family Medicine 06/19/22 Mariela Denton MD [address] [place] [address] Referring Physician Gastroenterology 06/19/22 Lexis Barroso OD [address], [place] [address] Solution Make Up Operator 09/19/22 documented as of this encounter
--- OUTSIDE RECORDS SUMMARY | 2024-08-18 11:00 | XMS_ITS | Encounter Summary ---
Author Organization [facility] Healthcare Address [address] [place] [address] Care Team Providers Care Senior Geologist Name Role Phone Servando Torre MD Primary Care Provider +1- [phone] Mariela Denton MD Unavailable +1 -[phone] Lexis Barroso OD Unavailable +1- [phone] Encounter Details Date Type Department Care Team (Latest Contact Info) Description 09/30/2023 2:03 PM JUNIOR PARALEGAL - 09/30/2023 11:59 PM JUNIOR PARALEGAL Hospital Encounter [facility] [address] [place] [address] Hypertension associated with type 2 diabetes [...] on file Legal Sex Female 9:30 AM JUNIOR PARALEGAL Gender Identity Female 04/05/2022 6:17 PM [...] needed 09/30/2022 4 busPIRone (BUSPAR) 5 mg tabletIndications: Generalized Anxiety Disorder Take 1 tablet (5 mg total) by mouth 2 (two) times a day 60 tablet 2 07/07/2023 4 lamoTRIgine (LaMICtal) 100 mg tablet Take 1 tablet (100 mg total) by mouth 2 (two) times a day 180 tablet 1 06/24/2023 4 azaTHIOprine (IMURAN) 50 mg tabletIndications: Ulcerative Colitis Take 1.5 tablets (75 mg total) by mouth daily Please get drug level checked in one month. Safety labs required every 3 months for med refills. 45 tablet 1 06/18/2023 4 losartan (COZAAR) 100 mg tablet Take [...] Diagnosis Comments EGFR Routine 09/30/2023 2:03 PM JUNIOR PARALEGAL Hypertension associated with type 2 diabetes mellitus (HCC) DIFFERENTIAL AUTO Routine 09/30/2023 2:0 3 PM JUNIOR PARALEGAL Hypertension associated with type 2 diabetes mellitus (HCC) Gastroesophageal reflux disease without esophagitis THYROID FUNCTION CASCADE Routine 09/30/2023 2:03 PM JUNIOR PARALEGAL Hypertension associated with type 2 diabetes mellitus (HCC) CBC WITH AUTO DIFFERENTIAL Routine 09/30/2023 2:03 PM JUNIOR PARALEGAL Hypertension associated with type 2 diabetes mellitus (HCC) Gastroesophageal reflux disease without esophagitis HEMOGLOBIN A1C Routine 09/30/2023 2:03 PM JUNIOR PARALEGAL Hypertension associated with type 2 diabetes mellitus (HCC) LIPID PANEL Routine 09/30/2023 2:03 PM JUNIOR PARALEGAL Mixed hyperlipidemia COMPREHENSIVE METABOLIC PANEL Routine 09/30/2023 2:03 PM JUNIOR PARALEGAL Hypertension associated with type 2 diabetes mellitus (HCC) documented in this encounter Results * eGFR (09/30/2023 2:03 PM JUNIOR PARALEGAL) [facility] eGFR 64 mL/min/1. 73 m2 AILEEN MATTHEW [...] last reviewed 2021. Blood 09/30/2023 2:03 PM JUNIOR PARALEGAL 09/30/2023 8:19 PM JUNIOR PARALEGAL us Servando Torre MD LAB BLOOD ORDERABLES Final Result [facility] [address] [place] [address] * Differential, auto (09/30/2023 2:03 PM JUNIOR PARALEGAL) Neutrophil abs 5.7 1.5 - 6.5 K/cumm [facility] Imm gran abs 0.0 0.0 - 0.1 K/cumm [facility] Lymphocyte abs 1.9 0.8 - 3.3 K/cumm [facility] Monocyte abs 0.8 0.2 - 0.8 K/cumm [facility] Eosinophil abs 0.2 0.0 - 0.5 K/cumm [facility] Basophil abs 0.0 0.0 - 0.1 K/cumm [facility] Neutrophil pct 66.1 % [facility] Comment: Interpretive Data Percent cell count reference ranges are not reported, since discordance with absolute values may lead to misinterpretation of CBC data. Current Interpretive Data was last revised on 2017. Imm gran pct 0.3 % [facility] Comment: Interpretive Data Percent cell count reference ranges are not reported, since discordance with absolute values may lead to misinterpretation of CBC data. Current Interpretive Data was last revised on 2017. Lymphocyte pct 21.7 % [facility] Comment: Interpretive Data Percent cell count reference ranges are not reported, since discordance with absolute values may lead to misinterpretation of CBC data. Current Interpretive Data was last revised on 2017. Monocyte pct 8.8 % [facility] Comment: Interpretive Data Percent cell count reference [...] revised on 2017. Blood 09/30/2023 2:03 PM JUNIOR PARALEGAL 09/30/2023 8:09 PM JUNIOR PARALEGAL Servando Torre MD LAB BLOOD ORDERABLES Final Result Performing Organization Address [facility] Co de Phone Number AILEEN [phone] [place] [address] * Thyroid Function Willacy (09/30/2023 2:03 PM JUNIOR PARALEGAL) TSH 0.72 0.30 - 4.20 mcIUnit/mL AILEEN Blood 09/30/2023 2:03 PM JUNIOR PARALEGAL 09/30/2023 8:09 PM JUNIOR PARALEGAL Result [facility] Servando Torre MD LAB BLOOD ORDERABLES Final Result Performing Organization Address [facility] Co de Phone Number [facility] [address] [place] [address] * (ABNORMAL) Hemoglobin A1c (09/30/2023 2:03 PM JUNIOR PARALEGAL) Hgb A1C 6.3(H) 4.0 - 5.6 % [facility] Estimated Average Glucose 134 mg/dL [facility] Comment: The ADA recommends reporting an estimated Average Glucose (eAG) with all Hemoglobin A1c results using the equation derived from a study of 507 normal and diabetic adults. ??Minority populations were underrepresented and children were not included. ?? (Diabetes Care 31:7591-2789, 2008). ??The eAG is not equivalent to a fasting glucose. Blood 09/30/2023 2:03 PM JUNIOR PARALEGAL 09/30/2023 8:09 PM JUNIOR PARALEGAL us Servando Torre MD LAB BLOOD ORDERABLES Final Result Performing Organization Address City/State/ZIP [facility] Phone Number AILEEN [phone] Department [place] [address] * Lipid panel (09/30/2023 2:03 PM JUNIOR PARALEGAL) Cholesterol 191 30 - 199 mg/dL AILEEN [...] 3 [facility] Blood 09/30/2023 2:03 PM JUNIOR PARALEGAL 09/30/2023 8:09 PM JUNIOR PARALEGAL us Servando Torre MD LAB BLOOD ORDERABLES Final Result [facility] [address] Department [place] [address] * (ABNORMAL) Comprehensive metabolic panel (09/30/2023 2:03 PM JUNIOR PARALEGAL) Sodium 141 135 - 145 mmol/L [facility] Potassium, pl 4.5 3.3 - 4.9 mmol/L [facility] Chloride 103 97 - 110 mmol/L [facility] CO2 26 22 - 32 mmol/L [facility] Anion gap 12 2 - 15 mmol/L [facility] BUN 22 6 - 25 mg/dL [facility] Creatinine 0.91 0.60 - 1.10 [...] Units/L [facility] Blood 09/30/2023 2:03 PM JUNIOR PARALEGAL 09/30/2023 8:09 PM JUNIOR PARALEGAL Servando Torre MD LAB [place] [address] [address] Department [place] [address] * (ABNORMAL) CBC with auto differential (09/30/2023 2:03 PM JUNIOR PARALEGAL) WBC 8.6 3.8 - 9.9 K/cumm [facility] [...] K/cumm [facility] Blood 09/30/2023 2:03 PM JUNIOR PARALEGAL 09/30/2023 8:09 PM JUNIOR PARALEGAL Servando Torre MD LAB BLOOD ORDERABLES Final Result [facility] [address] Department [place] [address] documented in this encounter Visit Diagnoses Diagnosis Hypertension associated with type 2 diabetes mellitus (HCC) Gastroesophageal reflux disease without esophagitis Esophageal reflux Mixed hyperlipidemia documented in this encounter Care Teams Senior Geologist Relationship Specialty Start Date End Date Servando Torre MD [facility] [address] PCP - General Family Medicine 06/19/22 Mariela Denton MD [facility] [address] [facility] [address] [place] [address] Referring Physician Gastroenterology 06/19/22 Lexis Barroso OD [address] [place] [address] Academic Adviser 09/19/22 documented as of this encounter
--- OUTSIDE RECORDS SUMMARY | 2024-08-18 11:00 | XMS_ITS | Encounter Summary ---
Author Organization [facility] Healthcare Address [address] [place] [address] Care Team Providers Care Legal Executive Name Role Phone Servando Torre MD Primary Care Provider +1- [phone] Mariela Denton MD Unavailable +1 -[phone] Lexis Barroso OD Unavailable +1- [phone] Reason for Visit * Reason Onset Date Comments Medication Request 08/29/2023 Encounter Details Date Type Department Care Team (Late st Contact Info) Description 08/29/[address] [facility] Medical Group Primary Care at [address] [address] Servando Torre MD [address] [place] [address] [address] [place] [address] Medication Request Social History Tobacco [...] on file Legal Sex Female 9:30 AM COKE CRUSHER OPERATOR Gender Identity Female 04/05/2022 6:17 PM [...] Does message need to be routed? No CRUSHER OPERATOR documented in this encounter Plan of Treatment Not on file documented as of this encounter Visit Diagnoses Not on filedocumented in this encounter Care Teams Legal Executive Relationship Specialty Start Date End Date Servando Torre MD [address] [address] PCP - General Family Medicine 06/19/22 Mariela Denton MD [address] [place] [address] Referring Physician Gastroenterology 06/19/22 Lexis Barroso OD [address] [place] [address] Attendant Self Service Store 09/19/22 documented as of this encounter
--- OUTSIDE RECORDS SUMMARY | 2024-08-18 11:00 | XMS_ITS | Encounter Summary ---
Author Organization [facility] Healthcare Address [address] [place] [address] Care Team Providers Care Teleprinter Name Role Phone Servando Torre MD Primary Care Provider +1- [phone] Mariela Denton MD Unavailable +1 -[phone] Lexis Barroso OD Unavailable +1- [phone] Reason for Visit * Diagnostic Imaging (Routine) - Closed Specialty Diagnoses / Procedures Referred By Contclemencia t Referred To Contact Diagnoses Chronic pain of both knees Procedures XR Pelvis 1 or 2 Views Riri Gonzalez PA [address] [place] [address] [address] [place] [address] Phone: tel: fax: [facility] Medical Group Referral ID Status Reason Start Date Expiration Date Visits Re quested Visits Authorized [id number] Closed 08/28/2023 09/26/2024 1 1 Encounter Details Date Type Department Care Team (Latest Contact Info) Description 08/28/2023 10:55 AM STEEL PAN FORM PLACING SUPERVISOR Ancillary Procedure [facility] Medical Group Imaging at [address] [address] Chronic pain of both knees [...] on file Legal Sex Female 9:30 AM STEEL PAN FORM PLACING SUPERVISOR Gender Identity Female 04/05/2022 6:17 PM CDT Sexual Orientation Straight 04/05/2022 6: 17 PM CDT documented as of this encounter Plan of Treatment Not on file documented as of this encounter Procedures Procedure Name Priority Date/Time Associated Diagnosis Comments XR PELVIS 1 OR 2 VIEWS Schedule Routine, Read Routine (OP Routine) 08/28/2023 11:01 AM STEEL PAN FORM PLACING SUPERVISOR Chronic pain of both knees documented in this encounter Results * XR Pelvis 1 or 2 Views (08/28/2023 11:01 AM STEEL PAN FORM PLACING SUPERVISOR) Anatomical Region Laterality Modality Body, Pelvis N/A Digital Radiogra phy Narrative 08/28/2023 1:04 PM STEEL PAN FORM PLACING SUPERVISOR Radiographs of the pelvis reviewed interpreted. ??No [...] knees documented in this encounter Care Teams Teleprinter Relationship Specialty Start Date End Date Servando Torre MD [address] [facility] 130 [place] [address] PCP - General Family Medicine 06/19/22 Mariela Denton MD [address] [place] [address] Referring Physician Gastroenterology 06/19/22 Lexis Barroso OD [address] [place] [address] Bed Operator 09/19/22 documented as of this encounter
--- OUTSIDE RECORDS SUMMARY | 2024-08-18 11:00 | XMS_ITS | Encounter Summary ---
Author Organization [facility] Healthcare Address [address] [place] [address] Care Team Providers Care Cad Programmer Name Role Phone Servando Torre MD Primary Care Provider +1- [phone] Mariela Denton MD Unavailable +1 -[phone] Lexis Barroso OD Unavailable +1- [phone] Encounter Details Date Type Department Care Team (Latest Contact Info) Description 08/28/2023 11:00 AM BMW SALES CONSULTANT Ancillary Procedure [facility] Medical Group Imaging at [address] [address] Chronic pain of both knees [...] on file Legal Sex Female 9:30 AM BMW SALES CONSULTANT Gender Identity Female 04/05/2022 6:17 PM CDT Sexual Orientation Straight 04/05/2022 6: 17 PM CDT documented as of this encounter Plan of Treatment Not on file documented as of this encounter Procedures Procedure Name Priority Date/Time Associated Diagnosis Comments XR KNEE BILATERAL 4 OR MORE VIEWS Schedule Routine, Read Routine (OP Routine) 08/28/2023 11:01 AM BMW SALES CONSULTANT Chronic pain of both knees documented in this encounter Results * XR Knee Bilateral 4 or More Views (08/28/2023 11:01 AM BMW SALES CONSULTANT) Anatomical Region Laterality Modality Lower Extremities, Knee Digital Radiography Narrative 08/28/2023 1:05 PM BMW SALES CONSULTANT Weightbearing views of the bilateral knee are [...] knees documented in this encounter Care Teams Cad Programmer Relationship Specialty Start Date End Date Servando Torre MD [address] [facility] 130 [place] [address] PCP - General Family Medicine 06/19/22 Mariela Denton MD [address] [place] [address] Referring Physician Gastroenterology 06/19/22 Lexis Barroso OD [address], [place] [address] Pattern Assembler 09/19/22 documented as of this encounter
--- OUTSIDE RECORDS SUMMARY | 2024-08-18 11:00 | XMS_ITS | Encounter Summary ---
Author Organization [facility] Healthcare Address [address] [place] [address] Care Team Providers Care Oven Drier Tender Name Role Phone Servando Torre MD Primary Care Provider +1- [phone] Mariela Denton MD Unavailable +1 -[phone] Lexis Barroso OD Unavailable +1- [phone] Reason for Visit * Reason Comments Follow-up Event monitor Syncope Bradycardia Encounter Details Date Type Department Care Team (Latest Contact Info) Description 09/19/2023 11:30 AM COUNTY DEMONSTRATOR Office Visit [facility] Medical Group Cardiology at [address] [place] [id number] Mesfin Rosenthal MD 12[address] [facility] [address] [place] [address] Hypertension associated with diabetes (HCC) [...] file Legal Sex Female 9:30 AM COUNTY DEMONSTRATOR Gender Identity Female 04/05/2022 6:17 PM CDT Sexual Orientation Straight 04/05/2022 6: 17 PM CDT documented as of this encounter Last Filed Vital Signs Vital Sign Reading Time Taken Comments Blood Pressure 114/60 09/19/2023 11:33 AM COUNTY DEMONSTRATOR Pulse 62 09/19/2023 11:33 AM COUNTY DEMONSTRATOR Temperature - - Respiratory Rate - - Oxygen Saturation 96% 09/19/2023 11:33 AM COUNTY DEMONSTRATOR Inhaled Oxygen Concentration - - Weight 66.8 kg (147 lb 4.8 oz) 09/19/2023 11:33 AM COUNTY DEMONSTRATOR Height 157.5 cm (5' 2 ) 09/19/2023 11:33 AM COUNTY DEMONSTRATOR Body Mass Index 26.94 09/19/2023 11:33 AM COUNTY DEMONSTRATOR documented in this encounter Progress Notes * [...] seizure disorder which is a likely contributor. chairlift operator asdiscussed at length without significant tachy or [...] She had Echo in [place] and at [place]. No mention or issues of sig arrhythmias [...] capsule OneTouch Delica Plus Lancet 33 gauge [facility] OneTouch Ultra Test strip pantoprazole DR (PROTONIX) [...] consistent with small-vessel ischemic disease. 08/01/23 AMBULATORY INSIDE SALES LEAD REPORT Type of monitor : 30 day pit shovel operator Date of the study/Enrollment period: June 27, [...] record, and bloodwork/lipids. Dania Rosenthal MD, [facility] This note is dictated and transcribed using [employer] Direct Software. Physics Faculty Member variancesmay occur. Despite proofreading, typographical errors may occur. TY DEMONSTRATOR documented in this encounter Plan of Treatment Not on file documented as of this encounter Visit Diagnoses Diagnosis Hypertension associated with diabetes (HCC)- Primary Unspecified essential hypertension Mixed diabetic hyperlipidemia associated with type 2 diabetes mellitus (HCC) Syncope, unspecified syncope type Bradycardia Other specified cardiac dysrhythmias At risk for falls Personal history of fall documented in this encounter Care Teams Oven Drier Tender Relationship Specialty Start Date End Date Servando Torre MD [facility] [place] [address] PCP - General Family Medicine 06/19/22 Mariela Denton MD [address] [place] [address] Referring Physician Gastroenterology 06/19/22 Lexis Barroso OD [address] [place] [address] Procurement Internship 09/19/22 documented as of this encounter
--- OUTSIDE RECORDS SUMMARY | 2024-08-18 11:00 | XMS_ITS | Encounter Summary ---
Author Organization [facility] Healthcare Address [address] [place] [address] Care Team Providers Care Store Shopper Name Role Phone Servando Torre MD Primary Care Provider Mariela Denton MD Unavailable +1 -[phone] Lexis Barroso OD Unavailable +1- [phone] Reason for Visit * Reason Onset Date Comments Patient Running Late For Apt 09/30/2023 Encounter Details Date Type Department Care Team (Late st Contact Info) Description 09/30/2023 Telephone [facility] Medical Group Primary Care at [place] [id number] [place] [address] Servando Torre MD [address] [place] [address] [address] [place] [address] Patient Running Late For Apt [...] on file Legal Sex Female 9:30 AM BRIDGE OPERATOR SLIP Gender Identity Female 04/05/2022 6:17 PM CDT [...] message need to be routed? Yes-FYI Only GE OPERATOR SLIP documented in this encounter Plan of Treatment Not on file documented as of this encounter Visit Diagnoses Not on filedocumented in this encounter Care Teams Store Shopper Relationship Specialty Start Date End Date Servando Torre MD [facility] [address] [address] PCP - General Family Medicine 06/19/22 Mariela Denton MD [facility] [address] [place] [address] Referring Physician Gastroenterology 06/19/22 Lexis Barroso OD [address] [place] [address] Casting Assistant 09/19/22 documented as of this encounter
--- OUTSIDE RECORDS SUMMARY | 2024-08-18 11:00 | XMS_ITS | Encounter Summary ---
Author Organization [facility] Healthcare Address [address] [place] [address] Care Team Providers Care Medical Aide Name Role Phone Servando Torre MD Primary Care Provider +1- [phone] Mariela Denton MD Unavailable +1 -[phone] Lexis Barroso OD Unavailable +1- [phone] Encounter Details Date Type Department Care Team (Late st Contact Info) Description 07/24/2023 12:20 PM TRANSPORTATION MANAGER Lab [address] [address] Ulcerative colitis with complication, unspecified location (HCC); [...] file Legal Sex Female 9:30 AM TRANSPORTATION MANAGER Gender Identity Female 04/05/2022 6:17 PM CDT Sexual Orientation Straight 04/05/2022 6: 17 PM CDT documented as of this encounter Plan of Treatment Not on file documented as of this encounter Procedures Procedure Name Priority Date/Time Associated Diagnosis Comments THIOPURINE METABOLITES Routine 07/24/2023 12:36 PM TRANSPORTATION MANAGER Ulcerative colitis with complication, unspecified location (HCC) High risk medications (not anticoagulants) long-term use 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 6-MMP, bld 2241 < or = 5700 [facility]) Comment: Decreased risk of hepatotoxicity. ADDITIONAL INFORMATION Testing performed by Liquid Chromatography-Tandem Mass Spectrometry (LC-MS/MS) This test was developed and its performance characteristics determined by [facility] in a manner consistent with CLIA requirements. This test has not been cleared or approved by the U.S. Food and Drug Administration. Test Performed by: [facility] - [address] [address] Regional Geodetic Advisor: Holden Redman M.D. 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
--- OUTSIDE RECORDS SUMMARY | 2024-08-18 11:00 | XMS_ITS | Encounter Summary ---
Author Organization [facility] Healthcare Address [address] [place] [address] Care Team Providers Care Silk Soaker Name Role Phone Servando Torre MD Primary Care Provider +1- [phone] Mariela Denton MD Unavailable +1 -[phone] Lexis Barroso OD Unavailable +1- [phone] Reason for Referral * Physical Therapy (Routine) - Closed Specialty Diagnoses / Procedures Referred By Angel braswell Referred To Contact Physical Therapy Diagnoses Chronic pain of both knees Primary osteoarthritis of both knees Leg weakness, bilateral Weakness of both hips Riri Gonzalez PA [address] [place] [address] [address] Phone: tel: fax: External Order Referral ID Status Reason Start Date Expiration Date V isits Requested Visits Authorized [id number] Closed Specialty Services Required 08/28/2023 09/26/2024 24 [...] instruction Therapist to determine frequency/duration of treatment BOSS * Diagnostic Imaging (Routine) - Closed Specialty Diagnoses / Procedures Referred By Angel braswell Referred To Contact Diagnoses Chronic pain of both knees Procedures XR Pelvis 1 or 2 Views Riri Gonzalez PA [address] [address] [place] [address] Phone: tel: fax: [facility] Medical Group Referral ID Status Reason Start Date Expiration Date Visits Re quested Visits Authorized [id number] Closed 08/28/2023 09/26/2024 1 1 BOSS Reason for Visit * Reason Comments Pain Pain * Consultation (Routine) - Closed Specialty Diagnoses / Procedures Referred By Angel braswell Referred To Contact Orthopedic Surgery Diagnoses Chronic pain of both knees Olga Hernandez NP Phone: tel: fax: Riri Gonzalez PA [address] [place] [address] [address] [place] [address] Phone: tel: fax: Referral ID Status Reason Start Date Expiration Date V isits Requested Visits Authorized [id number] Closed Specialty Services Required 08/07/2023 09/05/2024 1 1 Encounter Details Date Type Department Care Team (Late st Contact Info) Description 08/28/2023 11:15 AM MUCK BOSS Office Visit [facility] Medical Group Orthopedic and Sports Medicine [address] [place] [address] Riri Gonzalez PA [address] [place] [address] [address] [place] [address] Primary osteoarthritis of both knees (Primary Dx); [...] on file Legal Sex Female 9:30 AM MUCK BOSS Gender Identity Female 04/05/2022 6:17 PM CDT Sexual Orientation Straight 04/05/2022 6: 17 PM CDT documented as of this encounter Last Filed Vital Signs Vital Sign Reading Time Taken Comments Blood Pressure 136/73 08/28/2023 11:04 AM MUCK BOSS Pulse 69 08/28/2023 11:04 AM MUCK BOSS Temperature - - Respiratory Rate - - Oxygen Saturation - - Inhaled Oxygen Concentration - - Weight 65.6 kg (144 lb 11.2 oz) 024 11:04 AM MUCK BOSS Height 157.5 cm (5' 2 ) 08/28/2023 11:0 4 AM MUCK BOSS Body Mass Index 26.47 08/28/2023 11:04 AM MUCK BOSS documented in this encounter Patient Instructions * Patient Instructions* Riri Gonzalez PA - 08/28/2023 11:15 AM MUCK BOSS Over the counter medications to try: Topical Voltaren (diclofenac 1%); may use 3-4x daily with caution Topical lidocaine creams or patches (4% OTC) Tylenol up to 3000 mg daily BOSS documented in this encounter Progress Notes * [...] Anemia, Broken ribs, Detached retina, Diabetes mellitus ([facility]), GERD (gastroesophageal reflux disease), Gout, Hyperlipidemia, Hypertension, 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 PAST SURGICAL HISTORY She has [...] corticosteroid injections, viscosupplementation injections, physical therapy, NSAIDs, acwj-aeb-sdygrlw analgesics, and/or topical creams/analgesics. Likely, most of her complaints are due to advanced patellofemoral arthritis along with age-related weakness of the bilateral lower extremities. She has not a candidate for surgical intervention. Therefore we discussed a stepwise approach to managing her symptoms conservatively. She would like to try wkgk-tke-wqmrvas topical agents, use of Tylenol, and additional [...] Samy Boston MD at 09/02/2023 9:04 AM MUCK BOSS BOSS BOSS documented in this encounter Plan of Treatment [...] 4 or More Views (08/28/2023 11:01 AM MUCK BOSS) Anatomical Region Laterality Modality Lower Extremities, Knee Digital Radiography Narrative 08/28/2023 1:05 PM MUCK BOSS Weightbearing views of the bilateral knee are [...] 1 or 2 Views (08/28/2023 11:01 AM MUCK BOSS) Anatomical Region Laterality Modality Body, Pelvis N/A Digital Radiogra phy Narrative 08/28/2023 1:04 PM MUCK BOSS Radiographs of the pelvis reviewed interpreted. ??No [...] 2023 documented in this encounter Care Teams Silk Soaker Relationship Specialty Start Date End Date Servando Torre MD [facility] [address] PCP - General Family Medicine 06/19/22 Mariela Denton MD [facility] [address] [place] [address] Referring Physician Gastroenterology 06/19/22 Lexis Barroso OD [address] [place] [address] Ems Educator 09/19/22 documented as of this encounter
--- OUTSIDE RECORDS SUMMARY | 2024-08-18 11:00 | XMS_ITS | Encounter Summary ---
Author Organization [facility] Healthcare Address [address] [place] [address] Care Team Providers Care Optical Glass Wet Inspector Name Role Phone Servando Torre MD Primary Care Provider Mariela Denton MD Unavailable +1 -[phone] Lexis Barroso OD Unavailable +1- [phone] Reason for Visit * Reason Onset Date Comments Medical Question/Miscellaneous 07/25/2023 Encounter Details Date Type Department Care Team (Late st Contact Info) Description 07/25/2023 Telephone [facility] Medical Group Primary Care at [address] [address] Servando Torre MD [address] [place] [address] [address] [place] [address] Medical Question/Miscellaneous Social History Tobacco [...] on file Legal Sex Female 9:30 AM MARINE ELECTRICIAN HELPER Gender Identity Female 04/05/2022 6:17 PM CDT Sexual Orientation Straight 04/05/2022 6: 17 PM CDT documented as of this encounter Miscellaneous Notes * Telephone Encounter - Regina Loo MA - 07/30/2023 2:33 PM MARINE ELECTRICIAN HELPER Spoke to Mary from Medicare, Mary is faxing a form to be completed. NE ELECTRICIAN HELPER * Telephone Encounter - Clementine Vega - 07/25/2023 4:29 PM CST Call Back Caller???s Concern: Niraj calling back to advise after speaking with Medicare, Medicare advised to Niraj that practice would need to contact Medicare to confirm pharmacy approval in order to bill patient's Medicare part B for the diabetes testing supplies and lancets. Niraj relayed Medicare phone number: [phone]. Please advise with Medicare at number listed above. Does message need to be routed? Yes-Action Needed NE ELECTRICIAN HELPER * Telephone Encounter - Pamela Benites - 07/25/2023 4:16 PM CST Called Niraj and gave dx code. NE ELECTRICIAN HELPER * Telephone Encounter - DeniseOctober - 07/25/2023 12:23 PM CST Medical Question/Miscellaneous Caller???s Concern: Niraj called for the ICd-10 code for them to bill medicare part b for the test strips and lancets please call [facility] Does message need to be routed? Yes-Action Needed NE ELECTRICIAN HELPER documented in this encounter Plan of Treatment Not on file documented as of this encounter Visit Diagnoses Not on filedocumented in this encounter Care Teams Optical Glass Wet Inspector Relationship Specialty Start Date End Date Servando Torre MD [address] [address] PCP - General Family Medicine 06/19/22 Mariela Denton MD [address] [place] [address] Referring Physician Gastroenterology 06/19/22 Lexis Barroso OD [address] [place] [address] Research & Analytics Manager 09/19/22 documented as of this encounter
--- OUTSIDE RECORDS SUMMARY | 2024-08-18 11:00 | XMS_ITS | Encounter Summary ---
Author Organization [facility] Healthcare Address [address] [place] [address] Care Team Providers Care Telecommunications Sales Representative Name Role Phone Servando Torre MD Primary Care Provider +1- [phone] Mariela Denton MD Unavailable +1 -[phone] Lexis Barroso OD Unavailable +1- [phone] Reason for Visit * Reason Comments Health Maintenance Encounter Details Date Type Department Care Team (Late st Contact Info) Description 09/30/2023 1:00 PM SEPTIC TANK SERVICER Office Visit [facility] Medical Group Primary Care at [address] [address] Servando Torre MD [address] [place] [address] [address] [place] [address] Hypertension associated with diabetes (HCC) [...] on file Legal Sex Female 9:30 AM SEPTIC TANK SERVICER Gender Identity Female 04/05/2022 6:17 PM CDT Sexual Orientation Straight 04/05/2022 6: 17 PM CDT documented as of this encounter Last Filed Vital Signs Vital Sign Reading Time Taken Comments Blood Pressure 122/80 09/30/2023 1:29 PM SEPTIC TANK SERVICER Pulse 69 09/30/2023 1:29 PM SEPTIC TANK SERVICER Temperature 36.5 ??C (97.7 ??F) 09/30/2023 1:29 PM CS T Respiratory Rate 18 09/30/2023 1:29 PM SEPTIC TANK SERVICER Oxygen Saturation 97% 09/30/2023 1:29 PM SEPTIC TANK SERVICER Inhaled Oxygen Concentration - - Weight 66.7 kg (147 lb) 09/30/2023 1:29 PM SEPTIC TANK SERVICER Height 157.5 cm (5' 2 ) 09/30/2023 1:29 PM SEPTIC TANK SERVICER Body Mass Index 26.89 09/30/2023 1:29 PM SEPTIC TANK SERVICER documented in this encounter Patient Instructions * Patient Instructions* Servando Torre MD - 09/30/2023 1:00 PM SEPTIC TANK SERVICER Awaiting labs Continuing current regimen BP well controlled Thanks for coming in today! My medical assistants and I are thankful you have trusted us with your care, and hope that you received EXCELLENT care today! Please do not hesitate to call if you have any questions or concerns at [phone]. You may receive a phone call, text, MYCHART message, or e-mail asking about your care today. We would love to hear your feedback on how EXCELLENT your care wastoday! Wishing you better health, always. Dr. Torre IC TANK SERVICER documented in this encounter Progress Notes * [...] catheter every 8 (eight) weeks Infused at: [facility] ([facility] order in Epic under 'Procedures' [...] without complication (CMS/HCC) (HCC) Comments: in remission IC TANK SERVICER documented in this encounter Plan of Treatment [...] documented as of this encounter Care Teams Telecommunications Sales Representative Relationship Specialty Start Date End Date Servando Torre MD [address] [address] PCP - General Family Medicine 06/19/22 Mariela Denton MD [address] [place] [address] Referring Physician Gastroenterology 06/19/22 Lexis Barroso OD [address] [place] [address] Grocery Deliverer 09/19/22 documented as of this encounter
--- OUTSIDE RECORDS SUMMARY | 2024-08-18 11:00 | XMS_ITS | Encounter Summary ---
Author Organization [facility] Healthcare Address [address] [place] [address] Care Team Providers Care Puller Machine Name Role Phone Servando Torre MD Primary Care Provider +1- [phone] Mariela Denton MD Unavailable +1 -[phone] Lexis Barroso OD Unavailable +1- [phone] Encounter Details Date Type Department Care Team (Late st Contact Info) Description 08/22/2023 Telephone [facility] Medical Group Primary Care at [address] [address] Regina Loo MA Social History [...] on file Legal Sex Female 9:30 AM DOCTOR OF NURSE ANESTHESIA PRACTICE Gender Identity Female 04/05/2022 6:17 PM CDT [...] Regina Loo MA - 08/22/2023 12:50 PM DOCTOR OF NURSE ANESTHESIA PRACTICE Refill request from [facility] for Metoprolol Tartrate 50mg tab Last refill 02/20/23 Last ov 08/07/23 OR OF NURSE ANESTHESIA PRACTICE documented in this encounter Plan of Treatment [...] documented as of this encounter Care Teams Puller Machine Relationship Specialty Start Date End Date Servando Torre MD [facility] [address] [address] PCP - General Family Medicine 06/19/22 Mariela Denton MD [address] [place] [address] Referring Physician Gastroenterology 06/19/22 Lexis Barroso OD [address] [place] [address] Gold Buyer 09/19/22 documented as of this encounter
--- OUTSIDE RECORDS SUMMARY | 2024-08-18 11:00 | XMS_ITS | Encounter Summary ---
Author Organization [facility] Address [address] [place] [address] Phone Care Team Providers Care Medic Technician Name Role Phone Servando Torre MD Primary Care Provider +1 [phone] Mariela Denton MD Unavailable +1 -[phone] Lexis Barroso OD Unavailable +1- [phone] Encounter Details Date Type Department Care Team (Late st Contact Info) Description 07/14/2023 Telephone [facility] Epilepsy 2019 [facility] 6th [place] [address] [place] [address] Adria Burleson MD [address] [facility] [address] [place] [address] Social History Tobacco Use Types [...] Sherita Licona RN - 07/15/2023 7:25 AM WIRE BORDER ASSEMBLER Todayticketshart message was reviewed. BORDER ASSEMBLER * Telephone Encounter - Sherita Licona RN - 07/14/2023 1:53 PM WIRE BORDER ASSEMBLER Sent ReCellular message informing patient that there were no structual abnormalities to explain seizure events. BORDER ASSEMBLER * Telephone Encounter - Sherita Licona RN - 07/14/2023 11:13 AM WIRE BORDER ASSEMBLER ----- Message from Adria Diop MD sent at 07/14/2023 10:59 AM WIRE BORDER ASSEMBLER ----- Dear Sherita Can we update family? TY IMPRESSION: No MRI evidence to explain the patient's seizures. ----- Message ----- From: Interface, Radiology Results In Sent: 07/11/2023 4:19 PM WIRE BORDER ASSEMBLER To: Adria Diop MD BORDER ASSEMBLER BORDER ASSEMBLER documented in this encounter Plan of Treatment Not on file documented as of this encounter Visit Diagnoses Not on filedocumented in this encounter Care Teams Medic Technician Relationship Specialty Start Date End Date Servando Torre MD [address] [facility] [address] [place] [address] PCP - General Family Medicine 06/19/22 Mariela Denton MD [address] [facility] [address] [place] [address] Referring Physician Gastroenterology 06/19/22 Lexis Barroso OD [address] [place] [address] Custom Feed Corn Operator 09/19/22 documented as of this encounter
--- OUTSIDE RECORDS SUMMARY | 2024-08-18 11:00 | XMS_ITS | Encounter Summary ---
Author Organization [facility] Healthcare Address [address] [place] [address] Care Team Providers Care Newspaper Deliverer Name Role Phone Servando Torre MD Primary Care Provider [phone] Mariela Denton MD Unavailable +1 -[phone] Lexis Barroso OD Unavailable +1- [phone] Reason for Visit * Reason Onset Date Comments Medical Records Request 07/31/2023 Encounter Details Date Type Department Care Team (Late st Contact Info) Description 07/31/2023 Telephone [facility] Medical Group Primary Care at [address] [address] Servando Torre MD [address] [place] [address] [address] [place] [address] Medical Records Request Social History [...] file Legal Sex Female 9:30 AM METAL DRILL PRESS OPERATOR Gender Identity Female 04/05/2022 6:17 PM CDT Sexual Orientation Straight 04/05/2022 6: 17 PM CDT documented as of this encounter Miscellaneous Notes * Telephone Encounter - Regina Toscano MA - 07/31/2023 12:59 PM METAL DRILL PRESS OPERATOR Office notes have been faxed L DRILL PRESS OPERATOR * Telephone Encounter - Zenaida Bond - 07/31/2023 11:21 AM CST Medical Records Request Request Type: Records Request Practice Will Complete What records are being requested:last 2 most recent Office Visit notes Who will the records be sent to (if being sent to another doctor, list the doctor's name and specialty)? Yosef at [employer] Date Needed: SHIRA Delivery Method: Fax Fax number to use for return of records: [phone] Attn. Nursing Additional Comments/Concerns: None Does the message need to be routed? Yes-Action Needed L DRILL PRESS OPERATOR documented in this encounter Plan of Treatment Not on file documented as of this encounter Visit Diagnoses Not on filedocumented in this encounter Care Teams Newspaper Deliverer Relationship Specialty Start Date End Date Servando Torre MD [address] [address] PCP - General Family Medicine 06/19/22 Mariela Denton MD [address] [place] [address] Referring Physician Gastroenterology 06/19/22 Lexis Barroso OD [address] [place] [address] Hopper Attendant 09/19/22 documented as of this encounter
--- OUTSIDE RECORDS SUMMARY | 2024-08-18 11:00 | XMS_ITS | Encounter Summary ---
Author Organization [facility] Address [address] [place] [address] Phone Care Team Providers Care Driller Operator Name Role Phone Servando Torre MD Primary Care Provider +1 [phone] Mariela Denton MD Unavailable +1 -[phone] Lexis Barroso OD Unavailable +1- [phone] Reason for Visit * Reason Onset Date Comments Plan to check Entyvio level 08/19/2023 Encounter Details Date Type Department Care Team (Late st Contact Info) Description 08/19/2023 Documentation [facility] Gastroenterology [address] [facility] 12th [place] [address] [place] [address] Lexis Renteria, ELMO Plan to check Entyvio [...] scheduled for 10/07/23. External order faxed to [facility] infusion center. Asked infusion team to reach out to our office if unable to draw Vedo level so that we canmake other arrangements, if necessary -------Fax Transmission Report------- To: Recipient at [phone] Subject: Joseph Allen Vedolizumab level (secure) Result: The transmission was successful. Explanation: All Pages Ok Pages Sent: 2 Connect Time: 1 minutes, 46 seconds Transmit Time: 08/19/2023 13:35 Transfer Rate: 9600 Status Code: 0000 Retry Count: 0 Job Id: [id number] Unique Id: [id number] Fax Line: 22 Fax Operations Research Analyst: [id number] BUCKER documented in this encounter Plan of Treatment Not on file documented as of this encounter Visit Diagnoses Not on filedocumented in this encounter Care Teams Driller Operator Relationship Specialty Start Date End Date Servando Torre MD 2[address] [facility] [address] [place] [address] PCP - General Family Medicine 06/19/22 Mariela Denton MD [address] [place] [address] Referring Physician Gastroenterology 06/19/22 Lexis Barroso OD [address] [place] [address] Certification Officer 09/19/22 documented as of this encounter
--- OUTSIDE RECORDS SUMMARY | 2024-08-18 11:01 | XMS_ITS | Encounter Summary ---
Author Organization [facility] Healthcare Address [address] [place] [address] Care Team Providers Care Cardiothoracic Surgeon Name Role Phone Servando Torre MD Primary Care Provider [phone] Mariela Denton MD Unavailable [phone] -[phone] Lexis Barroso OD Unavailable +1- [phone] Reason for Referral * MRI/CAT/PET Scan (Routine) - Closed Specialty Diagnoses / Procedures Referred By Contac t Referred To Contact Radiology Diagnoses Seizure (HCC) Procedures MRI Brain WO Contrast Adria Burleson MD [address] [address] Phone: tel: fax: [address] [address] Referral ID Status Reason Start Date Expiration Date Visits Re quested Visits Authorized [id number] Closed 06/24/2023 07/23/2024 1 1 SEA DIVER Reason for Visit * MRI/CAT/PET Scan (Routine) - Closed Specialty Diagnoses / Procedures Referred By Contac t Referred To Contact Radiology Diagnoses Seizure (HCC) Procedures MRI Brain WO Contrast Adria Burleson MD [address] [address] Phone: tel: fax: [facility] [address] [place] [address] Referral ID Status Reason Start Date Expiration Date Visits Re quested Visits Authorized [id number] Closed 06/24/2023 07/23/2024 1 1 Encounter Details Date Type Department Care Team (Latest Contact Info) Description 07/11/2023 1:24 PM DEEP SEA DIVER - 07/11/2023 11:59 PM DEEP SEA DIVER Hospital Encounter [facility] [address] [place] [address] Seizure (HCC) Discharge Disposition: Discharge to home [...] on file Legal Sex Female 9:30 AM DEEP SEA DIVER Gender Identity Female 04/05/2022 6:17 PM [...] a day 180 tablet 1 06/24/2023 4 aspirin 81 mg enteric coated tablet [...] tablet Take 2 tablets by mouth 4 losartan (COZAAR) 100 mg tablet Take [...] Read Routine (OP Routine) 07/11/2023 2:40 PM DEEP SEA DIVER Seizure (HCC) documented in this encounter Results * MRI Brain WO Contrast (07/11/2023 2:40 PM DEEP SEA DIVER) Anatomical Region Laterality Modality Head and Neck N/A Magnetic Resonan ce 07/11/2023 3:40 PM DEEP SEA DIVER Impressions 07/11/2023 4:17 PM DEEP SEA DIVER No MRI evidence to explain the patient's seizures. Dictated by: Marcell Cerna MD The radiology attending physician has personally reviewed this study, and had reviewed and/or edited this written report and agrees with it. Electronically signed by: Tino Rodriguez M.D. Ph.D. Narrative 07/11/2023 4:17 PM DEEP SEA DIVER EXAMINATION: Magnetic resonance imaging (MRI) of the [...] convulsions documented in this encounter Care Teams Cardiothoracic Surgeon Relationship Specialty Start Date End Date Servando Torre MD 2[address] [facility] [address] [place] [address] PCP - General Family Medicine 06/19/22 Mariela Denton MD [address] [facility] [address] [place] [address] Referring Physician Gastroenterology 06/19/22 Lexis Barroso OD [address], [place] [address] Police Chief Deputy 09/19/22 documented as of this encounter
--- OUTSIDE RECORDS SUMMARY | 2024-08-18 11:01 | XMS_ITS | Encounter Summary ---
Author Organization [facility] Address [address] [place] [address] Phone Care Team Providers Care Family Manager Name Role Phone Servando Torre MD Primary Care Provider +1 [phone] Mariela Denton MD Unavailable +1 [phone] Lexis Barroso OD Unavailable +1- [phone] Encounter Details Date Type Department Care Team (Late st Contact Info) Description 07/04/2023 Telephone [place] [address] [facility] First Floor [address] [place] [address] Eileen Hernandez, RN Social History [...] on file Legal Sex Female 9:30 AM FILTERS ASSEMBLER Gender Identity Female 04/05/2022 6:17 PM CDT Sexual Orientation Straight 04/05/2022 6: 17 PM CDT documented as of this encounter Miscellaneous Notes * Telephone Encounter - Eileen Hernandez RN - 07/04/2023 3:56 PM FILTERS ASSEMBLER Daughter Aby is calling concerned about patients [...] the edge off her anxiety. Please advise. ERS ASSEMBLER documented in this encounter Plan of Treatment Not on file documented as of this encounter Visit Diagnoses Not on filedocumented in this encounter Care Teams Family Manager Relationship Specialty Start Date End Date Servando Torre MD [facility] [address] [address] PCP - General Family Medicine 06/19/22 Mariela Denton MD [address] [place] [address] Referring Physician Gastroenterology 06/19/22 Lexis Barroso OD [address] [place] [address] Pool Player 09/19/22 documented as of this encounter
--- OUTSIDE RECORDS SUMMARY | 2024-08-18 11:01 | XMS_ITS | Encounter Summary ---
Author Organization [facility] Address [address] [place] [address] Phone Care Team Providers Care Planning Technician Name Role Phone Servando Torre MD Primary Care Provider [phone] Mariela Denton MD Unavailable [phone] [phone] Lexis Barroso OD Unavailable +1- [phone] Reason for Referral * MRI/CAT/PET Scan (Routine) - Closed Specialty Diagnoses / Procedures Referred By Angel braswell Referred To Contact Radiology Diagnoses Seizure (HCC) Procedures MRI Brain WO Contrast Adria Burleson MD 1 [facility] [address] [place] [address] Phone: tel: fax: [address] [address] Referral ID Status Reason Start Date Expiration Date Visits Re quested Visits Authorized [id number] Closed 06/24/2023 07/23/2024 1 1 LINES SUPERINTENDENT Encounter Details Date Type Department Care Team (Late st Contact Info) Description 06/24/2023 1:30 PM PIPELINES SUPERINTENDENT Office Visit [facility] Epilepsy [address] [facility] 6th [place] [address] [place] [address] Adria Burleson MD 1 [facility] [address] [place] [address] Seizure (HCC) (Primary Dx) Social History Tobacco [...] on file Legal Sex Female 9:30 AM PIPELINES SUPERINTENDENT Gender Identity Female 04/05/2022 6:17 PM CDT Sexual Orientation Straight 04/05/2022 6: 17 PM CDT documented as of this encounter Last Filed Vital Signs Vital Sign Reading Time Taken Comments Blood Pressure 176/84 06/24/2023 1:37 PM PIPELINES SUPERINTENDENT Pulse 66 06/24/2023 1:37 PM PIPELINES SUPERINTENDENT Temperature - - Respiratory Rate - - Oxygen Saturation - - Inhaled Oxygen Concentration - - Weight 65.8 kg (145 lb) 06/24/2023 1:37 PM PIPELINES SUPERINTENDENT Height 157.5 cm (5' 2 ) 06/24/2023 1:37 PM PIPELINES SUPERINTENDENT Body Mass Index 26.52 06/24/2023 1:37 PM PIPELINES SUPERINTENDENT documented in this encounter Ordered Prescriptions [...] Date: 06/24/2023 PCP: Servando Torre MD Provider: Rja Cedillo MD Chief complaint: seizure Interval history: [...] history: Epilepsy Risk Factors: Febrile seizure(s): No IMPROVEMENT NURSE 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 -EEG at [facility] on 03/07/2023: [...] time spent in any separately reportable services. LINES SUPERINTENDENT documented in this encounter Plan of Treatment Not on file documented as of this encounter Results * MRI Brain WO Contrast (07/11/2023 2:40 PM PIPELINES SUPERINTENDENT) Anatomical Region Laterality Modality Head and Neck N/A Magnetic Resonan ce 07/11/2023 3:40 PM PIPELINES SUPERINTENDENT Impressions 07/11/2023 4:17 PM PIPELINES SUPERINTENDENT No MRI evidence to explain the patient's seizures. Dictated by: Marcell Cerna MD The radiology attending physician has personally reviewed this study, and had reviewed and/or edited this written report and agrees with it. Electronically signed by: Tino Rodriguez M.D. Ph.D. Narrative 07/11/2023 4:17 PM PIPELINES SUPERINTENDENT EXAMINATION: Magnetic resonance imaging (MRI) of the [...] documented as of this encounter Care Teams Planning Technician Relationship Specialty Start Date End Date Servando Torre MD 2122 [facility] [address] [place] [address] PCP - General Family Medicine 06/19/22 Mariela Denton MD [address] [place] [address] Referring Physician Gastroenterology 06/19/22 Lexis Barroso OD [address], [place] [address] Crankshaft Balancer 09/19/22 documented as of this encounter
--- OUTSIDE RECORDS SUMMARY | 2024-08-18 11:01 | XMS_ITS | Encounter Summary ---
Author Organization [facility] Healthcare Address [address] [place] [address] Care Team Providers Care Group Fitness Manager Name Role Phone Servando Torre MD Primary Care Provider [phone]- [phone] Mariela Denton MD Unavailable +1 -[phone] Lexis Barroso OD Unavailable +1- [phone] Encounter Details Date Type Department Care Team (Late st Contact Info) Description 07/04/2023 Telephone [facility] Medical Group Primary Care at [address] [address] Servando Torre MD [address] [place] [address] [address] [place] [address] Social History Tobacco Use Types [...] on file Legal Sex Female 9:30 AM CHALK MACHINE OPERATOR Gender Identity Female 04/05/2022 6:17 PM CDT Sexual Orientation Straight 04/05/2022 6: 17 PM CDT documented as of this encounter Miscellaneous Notes * Telephone Encounter - Lexis Jhaveri MA - 07/07/2023 10:43 AM CST HH notified. K MACHINE OPERATOR * Telephone Encounter - Lexis Jhaveri MA - 07/04/2023 11:39 AM CST Talked with HH. Their coding dept is having a hard time getting ins to cover their services. 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 They have notes from her neurologist where is suggests that but they cannot use this. K MACHINE OPERATOR * Telephone Encounter - Hailey Orourke - 07/04/2023 10:21 AM CST HH called stating they have questions regarding pt's services. P: [phone] K MACHINE OPERATOR documented in this encounter Plan of Treatment Not on file documented as of this encounter Visit Diagnoses Not on filedocumented in this encounter Care Teams Group Fitness Manager Relationship Specialty Start Date End Date Servando Torre MD [facility] [address] [place] [address] PCP - General Family Medicine 06/19/22 Mariela Denton MD [address] [place] [address] Referring Physician Gastroenterology 06/19/22 Lexis Barroso OD [address] [place] [address] Spot Washer 09/19/22 documented as of this encounter
--- OUTSIDE RECORDS SUMMARY | 2024-08-18 11:01 | XMS_ITS | Encounter Summary ---
Author Organization [facility] Healthcare Address [address] [place] [address] Care Team Providers Care Industrial Gas Service Helper Name Role Phone Servando Torre MD Primary Care Provider +1- [phone] Mariela Denton MD Unavailable +1 -[phone] Lexis Barroso OD Unavailable +1- [phone] Encounter Details Date Type Department Care Team (Late st Contact Info) Description 07/01/2023 3:15 PM CELERY TIER Lab [facility] Outpatient Lab at [address] [address] Social History Tobacco Use Types [...] on file Legal Sex Female 9:30 AM CELERY TIER Gender Identity Female 04/05/2022 6:17 PM CDT Sexual Orientation Straight 04/05/2022 6: 17 PM CDT documented as of this encounter Plan of Treatment Not on file documented as of this encounter Visit Diagnoses Not on filedocumented in this encounter Care Teams Industrial Gas Service Helper Relationship Specialty Start Date End Date Servando Torre MD [address] [facility] [address] [place] [address] PCP - General Family Medicine 06/19/22 Mariela Denton MD [address] [place] [address] Referring Physician Gastroenterology 06/19/22 Lexis Barroso OD [address] [place] [address] Plant Maintenance Mechanic 09/19/22 documented as of this encounter
--- OUTSIDE RECORDS SUMMARY | 2024-08-18 11:01 | XMS_ITS | Encounter Summary ---
Author Organization [facility] Healthcare Address [address] [place] [address] Care Team Providers Care Hoisting Engineer Name Role Phone Servando Torre MD Primary Care Provider [phone] Mariela Denton MD Unavailable [phone] [phone] Lexis Barroso OD Unavailable +1- [phone] Reason for Visit * Cardiology (Routine) - Closed Specialty Diagnoses / Procedures Referred By Contac t Referred To Contact Diagnoses Syncope, unspecified syncope type Seizure (HCC) Bradycardia Procedures MCT Mobile Cardiac Telemetry Event Monitor Mesfin Rosenthal MD Phone: tel: fax: [facility] Medical Group Referral ID Status Reason Start Date Expiration Date Visits Re quested Visits Authorized [id number] Closed 06/27/2023 07/26/2024 1 1 Encounter Details Date Type Department Care Team (Latest Contact Info) Description 06/27/2023 2:30 PM PST SPECIALIST Ancillary Procedure [facility] Medical Group Cardiology [address] [place] [address] Syncope, unspecified syncope type; Seizure [...] on file Legal Sex Female 9:30 AM PST SPECIALIST Gender Identity Female 04/05/2022 6:17 PM CDT Sexual Orientation Straight 04/05/2022 6: 17 PM CDT documented as of this encounter Plan of Treatment Not on file documented as of this encounter Procedures Procedure Name Priority Date/Time Associated Diagnosis Comments MCT - MOBILE CARDIAC TELEMETRY EVENT MONITOR Routine 06/27/2023 3:42 PM PST SPECIALIST Syncope, unspecified syncope type Seizure (HCC) Bradycardia documented in this encounter Results * MCT Mobile Cardiac Telemetry Event Monitor (06/27/2023 3:42 PM PST SPECIALIST) Anatomical Region Laterality Modality Other Narrative 08/01/2023 7:25 PM PST SPECIALIST Images from the original result were not included. AMBULATORY FOREPART LASTER REPORT Patient Name: Lisa Allen Date of : 1945 ?? Requesting Physician: ?? Mesfin Rosenthal MD Date of interpretation: 08/01/23 Type of monitor : ?? 30 day night monitor Date of the study/Enrollment period: June [...] sinus rhythm without ectopy. Dania Rosenthal MD, [facility] 08/01/23 Voice recognition software was used to complete this document, therefore, doors prefitter variances may occur. Procedure Note Mesfin Rosenthal MD - 08/01/2023 Images from the original note were not included. AMBULATORY FOREPART LASTER REPORT Patient Name: Lisa Allen Date of : 1945 Requesting Physician: Mesfin Rosenthal MD Date of interpretation: 08/01/23 Type of monitor : 30 day night monitor Date of the study/Enrollment period: June [...] sinus rhythm without ectopy. Dania Rosenthal MD, [facility] 08/01/23 Voice recognition software was used to complete this document, therefore,doors prefitter variances may occur. Mesfin Rosenthal MD CV CARDIAC SERVICES PROC EDURES Final Result documented in this encounter Visit Diagnoses Diagnosis Syncope, unspecified syncope type Seizure (HCC) Other convulsions Bradycardia Other specified cardiac dysrhythmias documented in this encounter Care Teams Hoisting Engineer Relationship Specialty Start Date End Date Servando Torre MD [address] [facility] [address] [place] [address] PCP - General Family Medicine 06/19/22 Mariela Denton MD [address] [facility] [facility] [address] [place] [address] Referring Physician Gastroenterology 06/19/22 Lexis Barroso OD [address] [place] [address] Rouge Miller 09/19/22 documented as of this encounter
--- OUTSIDE RECORDS SUMMARY | 2024-08-18 11:01 | XMS_ITS | Encounter Summary ---
Author Organization [facility] Healthcare Address [address] [place] [address] Care Team Providers Care Manager Style Name Role Phone Servando Torre MD Primary Care Provider [phone] Mariela Denton MD Unavailable [phone] -[phone] Lexis Barroso OD Unavailable [phone]- [phone] Reason for Visit * Reason Comments Medicare Wellness Encounter Details Date Type Department Care Team (Late st Contact Info) Description 06/26/2023 2:00 PM DIRECTOR BIOINFORMATICS Office Visit [facility] Medical Group Primary Care at [address] [address] Servando Torre MD [address] [place] [address] [address] [place] [address] Encounter for Medicare annual wellness [...] file Legal Sex Female 9:30 AM DIRECTOR BIOINFORMATICS Gender Identity Female 04/05/2022 6:17 PM CDT Sexual Orientation Straight 04/05/2022 6: 17 PM CDT documented as of this encounter Last Filed Vital Signs Vital Sign Reading Time Taken Comments Blood Pressure 172/80 06/26/2023 2:29 PM DIRECTOR BIOINFORMATICS Pulse 66 06/26/2023 1:55 PM DIRECTOR BIOINFORMATICS Temperature 36.8 ??C (98.2 ??F) 06/26/2023 1:55 PM CS T Respiratory Rate 17 06/26/2023 1:55 PM DIRECTOR BIOINFORMATICS Oxygen Saturation 96% 06/26/2023 1:55 PM DIRECTOR BIOINFORMATICS Inhaled Oxygen Concentration - - Weight 68.7 kg (151 lb 6.4 oz) 06/26/2023 1:55 P M DIRECTOR BIOINFORMATICS Height 157.5 cm (5' 2 ) 06/26/2023 1:55 PM DIRECTOR BIOINFORMATICS Body Mass Index 27.69 06/26/2023 1:55 PM DIRECTOR BIOINFORMATICS documented in this encounter Patient Instructions * Patient Instructions* Servando Torre MD - 06/26/2023 2:00 PM DIRECTOR BIOINFORMATICS BP trend x 2 weeks, send numbers [...] you have any questions or concerns at [phone]. You may receive a phone call, text, MYCHART message, or e-mail asking about your care today. We would love to hear your feedback on how EXCELLENT your care wastoday! Wishing you better health, always. Dr. Torre CTOR BIOINFORMATICS CTOR BIOINFORMATICS * Attachments The following attachments cannot be sent through Care Everywhere. * Losartan (By mouth) (Icelandic) documented in this encounter Ordered Prescriptions Prescription [...] with high-risk medication Abnormal liver function tests nursing home (current) use of oral hypoglycemic drugs [...] catheter every 8 (eight) weeks Infused at: [facility] ([facility] order in [facility] under 'Procedures' tab)., Disp: 1 each, [...] as Referring Physician (Gastroenterology) Lexis Barroso OD (Collection Technician) Primary Pharmacy/DME suppliers: [id number] [place], [place] - [address] AT [address] [facility] [id number] Detection of Cognitive Impairment: Mini-Co/5 The patient [...] Improve Diet Advanced Directive Durable Power of Cigar Packing Examiner: Yes Living Will: Yes Opioid Usage Review [...] update and summary of today's office visit. CTOR BIOINFORMATICS documented in this encounter Miscellaneous Notes * Assessment & Plan Note - Servando Torre MD - 06/26/2023 2:02 PM DIRECTOR BIOINFORMATICS Associated Problem(s): Encounter for Medicare annual wellness [...] risks vs benefits. Return in 3 months CTOR BIOINFORMATICS * Addendum Note - Yesenia Parekh - 06/26/2023 2:00 PM CSTAddended by: YESENIA PAREKH on: 09/30/2023 02:03 PM Modules accepted: Orders CTOR BIOINFORMATICS documented in this encounter Plan of Treatment Not on file documented as of this encounter Results * (ABNORMAL) CBC with auto differential (09/30/2023 2:03 PM DIRECTOR BIOINFORMATICS) WBC 8.6 3.8 - 9.9 K/cumm CERNER [...] K/cumm CERNER CH Blood 09/30/2023 2:03 PM DIRECTOR BIOINFORMATICS 09/30/2023 8:09 PM DIRECTOR BIOINFORMATICS Servando Torre MD LAB BLOOD ORDERABLES Final Result Performing Organization Address City/State/[place] [address] [address] Department [place] [address] * (ABNORMAL) Comprehensive metabolic panel (09/30/2023 2:03 PM DIRECTOR BIOINFORMATICS) Sodium 141 135 - 145 mmol/L CERNER [...] Units/L CERNER CH Blood 09/30/2023 2:03 PM DIRECTOR BIOINFORMATICS 09/30/2023 8:09 PM DIRECTOR BIOINFORMATICS us Servando Torre MD LAB BLOOD ORDERABLES Final Result Performing Organization Address City/State/ZIP Co id Phone Number AILEEN [address] [facility] Department [place] [address] * Lipid panel (09/30/2023 2:03 PM DIRECTOR BIOINFORMATICS) Cholesterol 191 30 - 199 mg/dL [facility] Comment: Interpretive Data Ages < or = [...] revised on 2018. Triglycerides 136 <=149 mg/dL [facility] Comment: Interpretive Data Ages < or = [...] ratio 3 AILEEN Blood 09/30/2023 2:03 PM DIRECTOR BIOINFORMATICS 09/30/2023 8:09 PM DIRECTOR BIOINFORMATICS Servando Torre MD LAB BLOOD ORDERABLES Final Result Performing Organization Address [facility] Phone Number [facility] [address] [place] [address] * (ABNORMAL) Hemoglobin A1c (09/30/2023 2:03 PM DIRECTOR BIOINFORMATICS) Hgb A1C 6.3(H) 4.0 - 5.6 % AILEEN Estimated Average Glucose 134 mg/dL AILEEN Comment: The ADA recommends reporting an estimated Average Glucose (eAG) with all Hemoglobin A1c results using the equation derived from a study of 507 normal and diabetic adults. ??Minority populations were underrepresented and children were not included. ?? (Diabetes Care 31:1458-9924, 2008). ??The eAG is not equivalent to a fasting glucose. Blood 09/30/2023 2:03 PM DIRECTOR BIOINFORMATICS 09/30/2023 8:09 PM DIRECTOR BIOINFORMATICS Servando Torre MD LAB BLOOD ORDERABLES Final Result Performing Organization Address [facility] de Phone Number AILEEN [address] [address] [facility] [place] [address] * Thyroid Function Metcalfe (09/30/2023 2:03 PM DIRECTOR BIOINFORMATICS) TSH 0.72 0.30 - 4.20 mcIUnit/mL AILEEN MATTHEW Blood 09/30/2023 2:03 PM DIRECTOR BIOINFORMATICS 09/30/2023 8:09 PM DIRECTOR BIOINFORMATICS Servando Torre MD LAB BLOOD ORDERABLES Final Result AILEEN [address] [address] Department [place] [address] documented in this encounter Visit Diagnoses Diagnosis [...] Indications: hypertensionIndications:hypertensi on Given 06/26/2023 2:34 PM DIRECTOR BIOINFORMATICS 0.1 mg documented in this encounter Discontinued [...] 06/27/2023 added in this encounter Care Teams Manager Style Relationship Specialty Start Date End Date Servando Torre MD [facility] [address] [place] [address] PCP - General Family Medicine 06/19/22 Mariela Denton MD [address] [place] [address] Referring Physician Gastroenterology 06/19/22 Lexis Barroso OD [address] [place] [address] Collection Technician 09/19/22 documented as of this encounter
--- OUTSIDE RECORDS SUMMARY | 2024-08-18 11:01 | XMS_ITS | Encounter Summary ---
Author Organization [facility] Healthcare Address [address] [place] [address] Care Team Providers Care Nozzle Cement Sprayer Helper Name Role Phone Servando Torre MD Primary Care Provider Mariela Denton MD Unavailable [phone] [phone] Lexis Barroso OD Unavailable +1- [phone] Encounter Details Date Type Department Care Team (Late st Contact Info) Description 07/02/2023 Orders Only [facility] Medical Group Primary Care at [address] [address] Servando Torre MD [address] [place] [address] [address] [place] [address] Social History Tobacco Use Types [...] on file Legal Sex Female 9:30 AM LACE SEWER Gender Identity Female 04/05/2022 6:17 PM [...] on filedocumented in this encounter Care Teams Nozzle Cement Sprayer Helper Relationship Specialty Start Date End Date Servando Torre MD [facility] [address] PCP - General Family Medicine 06/19/22 Mariela Denton MD [address] [place] [address] Referring Physician Gastroenterology 06/19/22 Lexis Barroso OD [address] [place] [address] Health Technician 09/19/22 documented as of this encounter
--- OUTSIDE RECORDS SUMMARY | 2024-08-18 11:01 | XMS_ITS | Encounter Summary ---
Author Organization [facility] Healthcare Address [address] [place] [address] Care Team Providers Care Airplane Cabin Attendant Name Role Phone Servando Torre MD Primary Care Provider Mariela Denton MD Unavailable [phone] [phone] Lexis Barroso OD Unavailable +1- [phone] Reason for Visit * Reason Onset Date Comments Additional Services Or Orders 06/30/2023 Encounter Details Date Type Department Care Team (Late st Contact Info) Description 06/30/2023 Telephone [facility] Medical Group Primary Care at [address] [address] Servando Torre MD [address] [place] [address] [address] [place] [address] Additional Services Or Orders Social [...] file Legal Sex Female 9:30 AM ELECTRIC ORGAN ASSEMBLER Gender Identity Female 04/05/2022 6:17 PM [...] message need to be routed? Yes-Action Needed TRIC ORGAN ASSEMBLER * Addendum Note - Lydia Otto - 07/01/2023 3:30 PM CSTAddended by: LYDIA OTTO on: 07/01/2023 03:30 PM Modules accepted: Orders TRIC ORGAN ASSEMBLER * Telephone Encounter - Regina Loo MA - 06/30/2023 12:02 PM ELECTRIC ORGAN ASSEMBLER Spoke to Kimmie from [facility], Kimmie stated that the pt blood pressure was 182/86 and the pt confusion is worse. Spoke to Dr Torre, per Dr Torre pt to increase Losartan to 50mg and have urine tested. Called and Spoke to pt eliseo Alvares, informed her of increase in Losartan and urine test.She voiced understanding Called and spoke to Kimmie from [facility] and informed her of medication increase and [...] pt is going to go outside of [facility] then let the office know and the order can be faxed. TRIC ORGAN ASSEMBLER * Telephone Encounter - Britany Garcia - 06/30/2023 11:21 AM CST Medical Question/Miscellaneous Caller???s Concern: Kimmie wanting to speak with nurse about patients health, she has increased confusion and elevated blood pressure. Does message need to be routed? Yes-Action Needed TRIC ORGAN ASSEMBLER documented in this encounter Plan of Treatment Not on file documented as of this encounter Results * (ABNORMAL) Urinalysis reflex to microscopic (07/01/2023 3:30 PM ELECTRIC ORGAN ASSEMBLER) Color, ur Yellow Yellow CERNER CH Clarity, [...] for uric acid stone formation. Source: [facility] Current Interpretive Data was last revised on [...] performed. CERNER CH Urine 07/01/2023 3:30 PM ELECTRIC ORGAN ASSEMBLER 07/01/2023 6:41 PM ELECTRIC ORGAN ASSEMBLER us Servando Torre MD LAB URINE ORDERABLES Final Result Performing Organization Address City/[facility]/ZIP Co de Phone Number AILEEN TIFF [address] [address] [facility] [place] [address] * Urine culture Urine, clean voided (07/01/2023 3:30 PM ELECTRIC ORGAN ASSEMBLER) Report Final Report: Less than 100,000 colonies/mL (clinically insignificant growth based on current clinical standards) AILEEN MATTHEW Comment:Testing performed by : [facility], [address] [place]., [address] Organism (CLINICALLY INSIGNIFICANT GROWTH AILEEN Urine, clean voided 07/01/2023 3:30 PM ELECTRIC ORGAN ASSEMBLER 07/01/2023 9:57 PM ELECTRIC ORGAN ASSEMBLER Narrative AILEEN MATTHEW - 07/03/2023 8:11 AM ELECTRIC ORGAN ASSEMBLER Testing performed by [facility] Microbiology Laboratory ([phone]) us Servando Torre MD LAB MICROBIOLOGY - GENERAL ORDERABLES Final Result Performing Organization Address City/[facility] Co de Phone Number AILEEN MATTHEW [address] [address] [place] [address] documented in this encounter Visit Diagnoses Diagnosis UTI symptoms- Primary UTI symptoms documented in this encounter Care Teams Airplane Cabin Attendant Relationship Specialty Start Date End Date Servando Torre MD [facility] [address] [address] PCP - General Family Medicine 06/19/22 Mariela Denton MD [address] [place] [address] Referring Physician Gastroenterology 06/19/22 Lexis Barroso OD [address] [place] [address] Crane Hooker 09/19/22 documented as of this encounter
--- OUTSIDE RECORDS SUMMARY | 2024-08-18 11:01 | XMS_ITS | Encounter Summary ---
Author Organization [facility] Healthcare Address [address] [place] [address] Care Team Providers Care Picker Tender Helper Name Role Phone Servando Torre MD Primary Care Provider [phone]- [phone] Mariela Denton MD Unavailable [phone] -[phone] Lexis Barroso OD Unavailable +1- [phone] Reason for Visit * Reason Onset Date Comments OV on 06/27/23 07/01/2023 Encounter Details Date Type Department Care Team (Late st Contact Info) Description 07/01/2023 Telephone [facility] Medical Group Cardiology [address] [place] [address] Annemarie Bauman MA OV on [...] file Legal Sex Female 9:30 AM COMPUTER AIDED DESIGN TECHNICIAN Gender Identity Female 04/05/2022 6:17 PM [...] in person directly after MyChart msg wassent. UTER AIDED DESIGN TECHNICIAN documented in this encounter Plan of Treatment Not on file documented as of this encounter Visit Diagnoses Not on filedocumented in this encounter Care Teams Picker Tender Helper Relationship Specialty Start Date End Date Servando Torre MD [address] [address] PCP - General Family Medicine 06/19/22 Mariela Denton MD [address] [place] [address] Referring Physician Gastroenterology 06/19/22 Lexis Barroso OD [address], [place] [address] Web Marketing Analyst 09/19/22 documented as of this encounter
--- OUTSIDE RECORDS SUMMARY | 2024-08-18 11:01 | XMS_ITS | Encounter Summary ---
Author Organization [facility] Healthcare Address [address] [place] [address] Care Team Providers Care Helminthologist Name Role Phone Servando Torre MD Primary Care Provider [phone]- [phone] Mariela Denton MD Unavailable [phone] -[phone] Lexis Barroso OD Unavailable +1- [phone] Encounter Details Date Type Department Care Team (Latest Contact Info) Description 07/01/2023 3:30 PM GWOT IA/ILO INTELLIGENCE SUPPORT - 07/01/2023 11:59 PM GWOT IA/ILO INTELLIGENCE SUPPORT Hospital Encounter [facility] [address] [place] [address] UTI symptoms Discharge Disposition: Discharge to [...] on file Legal Sex Female 9:30 AM GWOT IA/ILO INTELLIGENCE SUPPORT Gender Identity Female 04/05/2022 6:17 PM CDT [...] catheter every 8 (eight) weeks Infused at: [facility] ([facility]F order in Epic under 'Procedures' tab). 1 each 5 04/29/2023 acetaminophen (acetaminophen Extra Strength) 500 mg tablet Take 1 tablet (500 mg total) by mouth every 6 (six) hours as needed 09/30/2022 4 lamoTRIgine (LaMICtal) 100 mg tablet Take [...] 2 tablets by mouth 4 losartan (COZAAR) 25 mg tablet Take [...] REFLEX TO MICROSCOPIC Routine 07/01/2023 3:30 PM GWOT IA/ILO INTELLIGENCE SUPPORT UTI symptoms URINALYSIS, MICROSCOPIC ONLY Routine 07/01/2023 3:30 PM GWOT IA/ILO INTELLIGENCE SUPPORT UTI symptoms URINE CULTURE Routine 07/01/2023 3:30 PM GWOT IA/ILO INTELLIGENCE SUPPORT UTI symptoms documented in this encounter Results * (ABNORMAL) Urinalysis, microscopic only (07/01/2023 3:30 PM GWOT IA/ILO INTELLIGENCE SUPPORT) WBC, ur 0-5 0 - 5 /HPF CERNER RBC, ur 3-5(A) 0 - 2 /HPF CERNER CH Epithelial cells, squamous, ur 1-5 0 - 5 /HPF [facility] Calcium oxalate crystals, ur 3+(A) [facility] Urine 07/01/2023 3:30 PM GWOT IA/ILO INTELLIGENCE SUPPORT 07/01/2023 6:41 PM GWOT IA/ILO INTELLIGENCE SUPPORT Servando Torre MD LAB URINE ORDERABLES Final Result Performing Organization Address [facility] de Phone Number [facility] [address] [address] [place] [address] * Urine culture Urine, clean voided (07/01/2023 3:30 PM GWOT IA/ILO INTELLIGENCE SUPPORT) Report Final Report: Less than 100,000 colonies/mL (clinically insignificant growth based on current clinical standards) [facility] Comment:Testing performed by : [facility], [address] [place]., [address] Organism (CLINICALLY INSIGNIFICANT GROWTH [facility] Urine, clean voided 07/01/2023 3:30 PM GWOT IA/ILO INTELLIGENCE SUPPORT 07/01/2023 9:57 PM GWOT IA/ILO INTELLIGENCE SUPPORT Narrative [facility] - 07/03/2023 8:11 AM GWOT IA/ILO INTELLIGENCE SUPPORT Testing performed by [facility] Microbiology Laboratory ([phone]) Servando Torre MD LAB MICROBIOLOGY - GENERAL ORDERABLES Final Result Performing Organization Address [facility] Phone Number [facility] [address] [address] [employer] [place] [address] * (ABNORMAL) Urinalysis reflex to microscopic (07/01/2023 3:30 PM GWOT IA/ILO INTELLIGENCE SUPPORT) Color, ur Yellow Yellow [facility] Clarity, ur Cloudy(A) Clear [facility] Specific gravity, ur 1.016 1.003 - 1.030 [facility] pH, urine 7.0 [facility] Comment: Interpretive Data ? Urine pH is affected by diet, medications, systemic acid-base disturbances, and renal tubular function. ??pH may affect urinary stone formation. ??For example, urine pH below 6.0 may help reduce the tendency for calcium phosphate stones and pH greater than 6.0 may reduce the tendency for uric acid stone formation. Source: [facility] [employer] Current Interpretive Data was last revised on [...] performed. CERNER CH Urine 07/01/2023 3:30 PM GWOT IA/ILO INTELLIGENCE SUPPORT 07/01/2023 6:41 PM GWOT IA/ILO INTELLIGENCE SUPPORT us Servando Torre MD LAB URINE ORDERABLES Final Result Performing Organization Address City/State/[facility] Co wv Phone Number [facility] [address] [facility] Department [place] [address] documented in this encounter Visit Diagnoses Diagnosis UTI symptoms documented in this encounter Care Teams Helminthologist Relationship Specialty Start Date End Date Servando Torre MD [facility] [address] [place] [address] PCP - General Family Medicine 06/19/22 Mariela Denton MD [facility] [address] [place] [address] Referring Physician Gastroenterology 06/19/22 Lexis Barroso OD [address] [place] [address] Manager Grant 09/19/22 documented as of this encounter
--- OUTSIDE RECORDS SUMMARY | 2024-08-18 11:01 | XMS_ITS | Encounter Summary ---
Author Organization [facility] Healthcare Address [address] [place] [address] Care Team Providers Care Heel Reducer Name Role Phone Servando Torre MD Primary Care Provider [phone] Mariela Denton MD Unavailable [phone] [phone] Lexis Barroso OD Unavailable +1- [phone] Reason for Referral * Cardiology (Routine) - Closed Specialty Diagnoses / Procedures Referred By Angel braswell Referred To Contact Diagnoses Syncope, unspecified syncope type Seizure (HCC) Bradycardia Procedures MCT Mobile Cardiac Telemetry Event Monitor Mesfin Rosenthal MD Phone: tel: fax: [facility] Medical Group Referral ID Status Reason Start Date Expiration Date Visits Re quested Visits Authorized [id number] Closed 06/27/2023 07/26/2024 1 1 ETRICS GYNECOLOGY PHYSICIAN Reason for Visit * Reason Comments New Patient Referred by Dr. David sr for syncope Seizures * Consultation (Routine) - Closed Specialty Diagnoses / Procedures Referred By Contclemencia t Referred To Contact Cardiology Diagnoses Syncope, unspecified syncope type Marixa San NP [address] [facility] [address] [place] [address] Phone: tel: fax: [facility] Medical Group Cardiology at [address] [place] [address] Phone: tel: fax: Referral ID Status Reason Start Date Expiration Date V isits Requested Visits Authorized [id number] Closed Specialty Services Required 03/06/2023 04/04/2024 1 1 Encounter Details Date Type Department Care Team (Latest Contact Info) Description 06/27/2023 11:15 AM OBSTETRICS GYNECOLOGY PHYSICIAN Office Visit [facility] Cardiology at [address] [place] [address] Mesfin Rosenthal MD [address] [facility] [address] [place] [address] Syncope, unspecified syncope type (Primary [...] on file Legal Sex Female 9:30 AM OBSTETRICS GYNECOLOGY PHYSICIAN Gender Identity Female 04/05/2022 6:17 PM CDT Sexual Orientation Straight 04/05/2022 6: 17 PM CDT documented as of this encounter Last Filed Vital Signs Vital Sign Reading Time Taken Comments Blood Pressure 160/82 06/27/2023 11:20 AM OBSTETRICS GYNECOLOGY PHYSICIAN Pulse 55 06/27/2023 11:20 AM OBSTETRICS GYNECOLOGY PHYSICIAN Temperature - - Respiratory Rate - - Oxygen Saturation 96% 06/27/2023 11:20 AM OBSTETRICS GYNECOLOGY PHYSICIAN Inhaled Oxygen Concentration - - Weight 68.6 kg (151 lb 3.2 oz) 06/27/2023 11:20 AM OBSTETRICS GYNECOLOGY PHYSICIAN Height 157.5 cm (5' 2 ) 06/27/2023 11:20 AM OBSTETRICS GYNECOLOGY PHYSICIAN Body Mass Index 27.65 06/27/2023 11:20 AM OBSTETRICS GYNECOLOGY PHYSICIAN documented in this encounter Progress Notes * [...] available records from [facility] here from [place] to date. While I can not exclude significant tachy or more likely bradyarrhythmia I feel this is unlikely to have been a contributor to her initial episode from which workup revealed seizure disorder warranting treatment. We discussed the options at great length in this regard. To exclude potential contribution from a bradyarrhythmia 30 day environmental monitoring technician has been advised. They verbalized understanding and [...] normal sinus rhythm 62 beats per minute IN 172milliseconds QRS 92 milliseconds QT corrected 419 [...] 06/27/23 Initial visit: On 01/30/23 while in [place] during family reunion had a seizure at 9600 ft elevation dx with suspected seizure in [place]. Brain MRI some spot noted unclear etiology [...] spells like initiallynoted. She had Echo in [place] and at [place]. No mention or issues of sig arrhythmias [...] capsule OneTouch Delica Plus Lancet 33 gauge [facility] OneTouch Ultra Test strip [...] medical record, and bloodwork/lipids. Dania Rosenthal MD, [facility] This note is dictated and transcribed using Moodswing Direct Software. Car Repairer Apprentice variancesmay occur. Despite proofreading, typographical errors may occur. ETRICS GYNECOLOGY PHYSICIAN documented in this encounter Miscellaneous Notes * Addendum Note - Annemarie Bauman MA - 06/27/2023 11:15 AM CSTAddended by: ANNEMARIE BAUMAN on: 06/30/2023 11:33 AM Modules accepted: Orders ETRICS GYNECOLOGY PHYSICIAN documented in this encounter Plan of Treatment Not on file documented as of this encounter Procedures Procedure Name Priority Date/Time Associated Diagnosis Comments ECG 12-LEAD Routine 06/27/2023 Syncope, unspecified syncope type Seizure (HCC) Bradycardia documented in this encounter Results * MCT Mobile Cardiac Telemetry Event Monitor (06/27/2023 3:42 PM OBSTETRICS GYNECOLOGY PHYSICIAN) Anatomical Region Laterality Modality Other Narrative 08/01/2023 7:25 PM OBSTETRICS GYNECOLOGY PHYSICIAN Images from the original result were not included. AMBULATORY CLINICAL DOCUMENTATION SPECIALIST REPORT Patient Name: Lisa Allen Date of : 1945 ?? Requesting Physician: ?? Mesfin Rosenthal MD Date of interpretation: 08/01/23 Type of monitor : ?? 30 day environmental monitoring technician Date of the study/Enrollment period: June 27, [...] sinus rhythm without ectopy. Dania Rosenthal MD, [facility] 08/01/23 Voice recognition software was used to complete this document, therefore, commodity industry analyst variances may occur. Procedure Note Mesfin Rosenthal MD - 08/01/2023 Images from the original note were not included. AMBULATORY CLINICAL DOCUMENTATION SPECIALIST REPORT Patient Name: Lisa Allen Date of : 1945 Requesting Physician: Mesfin Rosenthal MD Date of interpretation: 08/01/23 Type of monitor : 30 day environmental monitoring technician Date of the study/Enrollment period: June 27, [...] sinus rhythm without ectopy. Dania Rosenthal MD, [facility] 08/01/23 Voice recognition software was used to complete this document, therefore,commodity industry analyst variances may occur. Mesfin Rosenthal MD CV [...] 06/27/2023 documented in this encounter Care Teams Heel Reducer Relationship Specialty Start Date End Date Servando Torre MD NPI: [id number] [place] [address] [address] [place] [address] PCP - General Family Medicine 06/19/22 Mariela Denton MD [address] [place] [address] Referring Physician Gastroenterology 06/19/22 Lexis Barroso OD [address] [place] [address] Yard Person 09/19/22 documented as of this encounter
--- OUTSIDE RECORDS SUMMARY | 2024-08-18 11:01 | XMS_ITS | Encounter Summary ---
Author Organization [facility] Healthcare Address [address] [place] [address] Care Team Providers Care Book Publisher Name Role Phone Servando Torre MD Primary Care Provider Mariela Denton MD Unavailable [phone] [phone] Lexis Barroso OD Unavailable +1- [phone] Reason for Visit * Reason Onset Date Comments call back for diagnosis code 06/25/2023 Encounter Details Date Type Department Care Team (Late st Contact Info) Description 06/25/2023 Telephone [facility] Medical Group Primary Care at [address] [address] Servando Torre MD [address] [place] [address] [address] [place] [address] call back for diagnosis code [...] file Legal Sex Female 9:30 AM ELECTRICAL REPAIRER Gender Identity Female 04/05/2022 6:17 PM CDT Sexual Orientation Straight 04/05/2022 6: 17 PM CDT documented as of this encounter Miscellaneous Notes * Telephone Encounter - Regina Loo MA - 06/30/2023 12:22 PM ELECTRICAL REPAIRER Called and spoke to the pt eliseo Alvares, she stated that the pt is taking Lamotrigine remazures. Called and spoke to Aby at [employer], informed Aby that the pt is taking Lamotrigine, she voiced understanding TRICAL REPAIRER * Telephone Encounter - Regina Loo MA - 06/30/2023 11:38 AM ELECTRICAL REPAIRER Spoke to Aby from [employer], Aby stated that she spoke to the pt daughter Aby, the daughter stated to Aby from [employer] that the pt is not taking Lamotrigine. I informed Aby from [employer] that the pt was seen on 06/26/23 and the medications were verified and the pt did not mention she was not taking Lamotrigine and the medication was just filled on 06/24/23 by Adria Quinteros Si. I informed Aby from [employer] that I will call and speak to the pt daughter Aby and call her back with information. Aby from [employer] voiced understanding. Called and spoke to pt daughter Aby, Aby stated she was not for sure if the pt is taking Lamotrigine, Jacques is going to call her daughter Dia to verify pt medication and will send a my chart message. TRICAL REPAIRER * Telephone Encounter - Shelia Cobb - 06/27/2023 4:19 PM CST Call Back Caller???s Concern: Aby is calling needing to speak with Regina again regarding getting a verbalorder and CS attempted to call office 2x and did not get an answer. Please follow up Does message need to be routed? Yes-Action Needed TRICAL REPAIRER * Telephone Encounter - Pamela Silveira - 06/27/2023 4:13 PM CST Call Back Caller???s Concern: Aby is calling back to follow up. She states she was needing patients updated med list faxed over. She states she called earlier to confirm that patient was no longer taking the lamotrigine so that it could be taken off med list. Fax number is [phone] Does message need to be routed? Yes-Action Needed TRICAL REPAIRER * Telephone Encounter - Regina Toscano MA - 06/27/2023 11:04 AM ELECTRICAL REPAIRER FYI TRICAL REPAIRER * Telephone Encounter - Denise October - 06/27/2023 10:57 AM CST Call Back Caller???s Concern: Mackenzie called back and stated that the pt no longer takes the medication / please call her back if needed Does message need to be routed? Yes-FYI Only TRICAL REPAIRER * Telephone Encounter - Regina Loo MA - 06/26/2023 4:57 PM ELECTRICAL REPAIRER Called [facility] and spoke to Mackenzie, Mackenzie [...] be faxed after addendum to Morena at [employer] #[phone] TRICAL REPAIRER * Telephone Encounter - David Everett - 06/25/2023 2:44 PM CST [facility] called and they are needing the diagnosis for a few medications. She alsoneeds the diagnosis with cognitive and mobility issues. She would like a call back today if possible as she needs to get this done SHIRA. She can be reached at [phone]. TRICAL REPAIRER documented in this encounter Plan of Treatment Not on file documented as of this encounter Visit Diagnoses Not on filedocumented in this encounter Care Teams Book Publisher Relationship Specialty Start Date End Date Servando Torre MD [facility] [address] [address] PCP - General Family Medicine 06/19/22 Mariela Denton MD [facility] [address] [place] [address] Referring Physician Gastroenterology 06/19/22 Lexis Barroso OD [address] [place] [address] Insurance Executive 09/19/22 documented as of this encounter
--- OUTSIDE RECORDS SUMMARY | 2024-08-18 11:02 | XMS_ITS | Encounter Summary ---
Author Organization [facility] Address [address] [place] [address] Phone Care Team Providers Care Rehab Nursing Tech Name Role Phone Servando Torre MD Primary Care Provider +1 [phone] Mariela Denton MD Unavailable [phone] Lexis Barroso OD Unavailable +1- [phone] Reason for Visit * Reason Onset Date Comments Thiopurine metabolites to be drawn at 06/10 infu brian appt 05/20/2023 Encounter Details Date Type Department Care Team (Late st Contact Info) Description 05/20/2023 Documentation [facility] Gastroenterology [address] [facility] 12th [place] [address] [place] [address] Janice Baez LPN Thiopurine metabolites to be [...] on file Legal Sex Female 9:30 AM ACCOUNTS CLERK Gender Identity Female 04/05/2022 6:17 PM CDT Sexual Orientation Straight 04/05/2022 6: 17 PM CDT documented as of this encounter Progress Notes * Janice Baez LPN - 05/20/2023 8:16 AM CDT Msg received from SEARCH ENGINE MARKETING STRATEGIST Mayra Zelaya who saw pt in clinic on 05/16/2023 for follow up, as pt'sLFTs were up a little with last labs, SEARCH ENGINE MARKETING STRATEGIST advised that we have pt's infusion team draw thiopurine metabolites at her next infusion appt on 06/10/2023. One time external order placed for thiopurine metabolites. Order faxed to pt's infusion team at . Asked infusion team to contact our office if they are unable to draw this. Reminder set for follow up of results. -------Fax Transmission Report------- To: Recipient at [phone] Subject: Joseph Allen - Lab Order [Secure] Result: The transmission was successful. Explanation: All Pages Ok Pages Sent: 2 Connect Time: 0 minutes, 33 seconds Transmit Time: 05/20/2023 08:56 Transfer Rate: 13060 Status Code: 0000 Retry Count: 3 Job Id: [id number] Unique Id: [id number] Fax Line: 4 Fax Commercial Parts Professional: [id number] documented in this encounter Plan of Treatment [...] medications documented in this encounter Care Teams Rehab Nursing Tech Relationship Specialty Start Date End Date Servando Torre MD [address] [facility] [address] [place] [address] PCP - General Family Medicine 06/19/22 Mariela Denton MD [address] [place] [address] Referring Physician Gastroenterology 06/19/22 Lexis Barroso OD [address] [place] [address] Abalone Processor 09/19/22 documented as of this encounter
--- OUTSIDE RECORDS SUMMARY | 2024-08-18 11:02 | XMS_ITS | Encounter Summary ---
Author Organization [facility] Healthcare Address [address] [place] [address] Care Team Providers Care Gathering Machine Feeder Name Role Phone Servando Torre MD Primary Care Provider [phone] Mariela Denton MD Unavailable [phone] [phone] Lexis Barroso OD Unavailable +1- [phone] Reason for Visit * Reason Onset Date Comments Call about jumbled speech and vomiting 3 Encounter Details Date Type Department Care Team (Late st Contact Info) Description 06/03/2023 Telephone [facility] Medical Group Primary Care at [address] [address] Servando Torre MD [address] [place] [address] [address] [place] [address] Call about jumbled speech and [...] file Legal Sex Female 9:30 AM EDGE FINISHER Gender Identity Female 04/05/2022 6:17 PM [...] patient to the ER for further evaluation. FINISHER documented in this encounter Plan of Treatment Not on file documented as of this encounter Visit Diagnoses Not on filedocumented in this encounter Care Teams Gathering Machine Feeder Relationship Specialty Start Date End Date Servando Torre MD [address] [address] PCP - General Family Medicine 06/19/22 Mariela Denton MD [address] [place] [address] Referring Physician Gastroenterology 06/19/22 Lexis Barroso OD [address], [place] [address] Scarf And Anneal Operator 09/19/22 documented as of this encounter
--- OUTSIDE RECORDS SUMMARY | 2024-08-18 11:02 | XMS_ITS | Encounter Summary ---
Author Organization [facility] Medical Group Address [address] [facility] [address] [place] [address] Care Team Providers Care Inventory Control Assistant Name Role Phone Servando Torre MD Primary Care Provider [phone] Mariela Denton MD Unavailable [phone] Lexis Barroso OD Unavailable +1- [phone] Encounter Details Date Type Department Care Team (Late st Contact Info) Description 04/26/2023 Orders Only [facility] Medical [facility] Primary Care at [place] [address] [place] [address] Marixa San NP [address] [facility] [address] [place] [address] Liver nodule (Primary Dx); Renal [...] on file Legal Sex Female 9:30 AM INCIDENT RESPONSE MANAGER Gender Identity Female 04/05/2022 6:17 PM CDT Sexual Orientation Straight 04/05/2022 6: 17 PM CDT documented as of this encounter Plan of Treatment Not on file documented as of this encounter Visit Diagnoses Diagnosis Liver nodule- Primary Other specified disorders of liver Renal lesion documented in this encounter Care Teams Inventory Control Assistant Relationship Specialty Start Date End Date Servando Torre MD [address] [address] PCP - General Family Medicine 06/19/22 Mariela Denton MD [address] [place] [address] Referring Physician Gastroenterology 06/19/22 Lexis Barroso OD [address] [place] [address] Supervisor Refining 09/19/22 documented as of this encounter
--- OUTSIDE RECORDS SUMMARY | 2024-08-18 11:02 | XMS_ITS | Encounter Summary ---
Author Organization [facility] Address [address] [place] [address] Phone Care Team Providers Care Sod Cutter Name Role Phone Servando Torre MD Primary Care Provider +1 [phone] Mariela Denton MD Unavailable [phone] Lexis Barroso OD Unavailable +1- [phone] Encounter Details Date Type Department Care Team (Late st Contact Info) Description 06/09/2023 Telephone [facility] Epilepsy [address] [facility] 6th [place] [address] [place] [address] Adria Burleson MD [address] [facility] [address] [place] [address] Social History Tobacco Use Types [...] on file Legal Sex Female 9:30 AM LINE PRODUCER Gender Identity Female 04/05/2022 6:17 PM CDT Sexual Orientation Straight 04/05/2022 6: 17 PM CDT documented as of this encounter Miscellaneous Notes * Telephone Encounter - Sherita Licona RN - 06/09/2023 2:26 PM LINE PRODUCER Spoke with Aby. Relayed Dr. Anthony's response. Verbalized understanding. She will keep our office updated and let us know if Lisa has any further symptoms/seizure events. PRODUCER * Telephone Encounter - Sherita Licona RN - 06/09/2023 8:44 AM LINE PRODUCER Aby Johansen called with an update. She reports that Lisa was admitted to [facility] on Friday and discharged Friday afternoon. [...] they are getting ready to travel to [place] on Friday. Any reasons why they should not travel with [place] at this time? Lisa is going to follow up with PCP on Friday. They will discuss providing a new UA to see if UTI has completely resolved. Any recommendations at this time? Thanks~Sherita AED: LTG 100 mg bid PRODUCER documented in this encounter Plan of Treatment Not on file documented as of this encounter Visit Diagnoses Not on filedocumented in this encounter Discontinued Medications Medication Sig Discontinue Reason Start Date End Da te levETIRAcetam (KEPPRA) 500 mg tablet Take 1 tablet (500 mg total) by mouth 2 (two) times a day 03/17/2023 06/09/2023 documented as of this encounter Care Teams Sod Cutter Relationship Specialty Start Date End Date Servando Torre MD [facility] [address] PCP - General Family Medicine 06/19/22 Mariela Denton MD [facility] [address] [place] [address] Referring Physician Gastroenterology 06/19/22 Lexis Barroso OD [address] [place] [address] Carbonizer 09/19/22 documented as of this encounter
--- OUTSIDE RECORDS SUMMARY | 2024-08-18 11:02 | XMS_ITS | Encounter Summary ---
Author Organization [facility] Address [address] [place] [address] Phone Care Team Providers Care Fusing Machine Operator Name Role Phone Servando Torre MD Primary Care Provider [phone] [phone] Mariela Denton MD Unavailable [phone] Lexis Barroso OD Unavailable +1- [phone] Encounter Details Date Type Department Care Team (Late st Contact Info) Description 05/07/2023 Telephone [facility] [address] [facility] 6th [place] [address] [place] [address] Lizzy Young Social History Tobacco [...] file Legal Sex Female 9:30 AM HOT STICK WORKER Gender Identity Female 04/05/2022 6:17 PM [...] on filedocumented in this encounter Care Teams Fusing Machine Operator Relationship Specialty Start Date End Date Servando Torre MD [facility][note 3][address] [address] PCP - General Family Medicine 06/19/22 Mariela Denton MD [address] [place] [address] Referring Physician Gastroenterology 06/19/22 Lexis Barroso OD [address] [place] [address] Stacking Machine Operator 09/19/22 documented as of this encounter
--- OUTSIDE RECORDS SUMMARY | 2024-08-18 11:02 | XMS_ITS | Encounter Summary ---
Author Organization [facility] Address [address] [place] [address] Phone Care Team Providers Care Parts Room Associate Name Role Phone Servando Torre MD Primary Care Provider +1 [phone] Mariela Denton MD Unavailable [phone] [phone] Lexis Barroso OD Unavailable +1- [phone] Encounter Details Date Type Department Care Team (Late st Contact Info) Description 05/05/2023 2:30 PM CDT Office Visit [facility] Epilepsy [address] [facility] 6th [place] [address] [place] [address] Adria Burleson MD [address] [facility] [address] [place] [address] Localization-related symptomatic epilepsy and epileptic [...] on file Legal Sex Female 9:30 AM PLAYER PIANO TECHNICIAN Gender Identity Female 04/05/2022 6:17 PM [...] history from last visit: Fall while in [place]30[place]20[place] for a family reunion [...] history: Epilepsy Risk Factors: Febrile seizure(s): No CRULLER MAKER MACHINE 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 -EEG at [facility] on 03/07/2023: This is an [...] Primary documented in this encounter Care Teams Parts Room Associate Relationship Specialty Start Date End Date Servando Torre MD [address] [facility] [address] [place] [address] PCP - General Family Medicine 06/19/22 Mariela Denton MD [address] [place] [address] Referring Physician Gastroenterology 06/19/22 Lexis Barroso OD [address] [place] [address] Hematology Specialist 09/19/22 documented as of this encounter
--- OUTSIDE RECORDS SUMMARY | 2024-08-18 11:02 | XMS_ITS | Encounter Summary ---
Author Organization [facility] Address [address] [place] [address] Phone Care Team Providers Care Inspector Motor Vehicles Name Role Phone Servando Torre MD Primary Care Provider +1 [phone] Mariela Denton MD Unavailable + [phone] Lexis Barroso OD Unavailable [phone]- [phone] Reason for Visit * Reason Onset Date Comments Plan from [facility] on 05/16/23 05/28/2023 Encounter Details Date Type Department Care Team (Late st Contact Info) Description 05/28/2023 Documentation [facility] Gastroenterology [address] [place] [address] [place] [address] Lexis Renteria, [place] Plan from [facility] on 05/16/23 Social History Tobacco Use Types [...] on file Legal Sex Female 9:30 AM 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
--- OUTSIDE RECORDS SUMMARY | 2024-08-18 11:02 | XMS_ITS | Encounter Summary ---
Author Organization [facility] Healthcare Address [address] [place] [address] Care Team Providers Care Sales Enablement Consultant Name Role Phone Servando Torre MD Primary Care Provider [phone] Mariela Denton MD Unavailable +1 [phone] Lexis Barroso OD Unavailable +1- [phone] Reason for Visit * Reason Onset Date Comments Medical Question/Miscellaneous 05/15/2023 Encounter Details Date Type Department Care Team (Late st Contact Info) Description 05/15/2023 Telephone [facility] Medical Group Primary Care at [address] [place] [address] Servando Torre MD [address] [place] [address] [address] [place] [address] Medical Question/Miscellaneous Social History Tobacco [...] on file Legal Sex Female 9:30 AM FACILITIES FLIGHT CHECK PILOT Gender Identity Female 04/05/2022 6:17 PM [...] to back line. Caller???s Call back #: [phone] Does message need to be routed? No documented in this encounter Plan of Treatment Not on file documented as of this encounter Visit Diagnoses Not on filedocumented in this encounter Care Teams Sales Enablement Consultant Relationship Specialty Start Date End Date Servando Torre MD [address] [address] PCP - General Family Medicine 06/19/22 Mariela Denton MD [address] [place] [address] Referring Physician Gastroenterology 06/19/22 Lexis Barroso OD [address] [place] [address] Hardwood Sawyer 09/19/22 documented as of this encounter
--- OUTSIDE RECORDS SUMMARY | 2024-08-18 11:02 | XMS_ITS | Encounter Summary ---
Author Organization [facility] Healthcare Address [address] [place] [address] Care Team Providers Care Battery Vent Plug Inserter Name Role Phone Servando Torre MD Primary Care Provider [phone] Mariela Denton MD Unavailable +1 -[phone] Lexis Barroso OD Unavailable +1- [phone] Encounter Details Date Type Department Care Team (Latest Contact Info) Description 06/11/2023 2:26 PM SCHEDULE MANAGER - 06/11/2023 11:59 PM SCHEDULE MANAGER Hospital Encounter [facility] [id number] [place] [address] UTI symptoms Discharge Disposition: Discharge to [...] on file Legal Sex Female 9:30 AM SCHEDULE MANAGER Gender Identity Female 04/05/2022 6:17 PM [...] Comments URINE CULTURE Routine 06/11/2023 2:26 PM SCHEDULE MANAGER UTI symptoms documented in this encounter Results * Urine culture Urine, clean voided (06/11/2023 2:26 PM SCHEDULE MANAGER) Report Final Report: Less than 100,000 colonies/mL (clinically insignificant growth based on current clinical standards) AILEEN Comment:Testing performed by : [facility], [address] [place]., [address] Organism (CLINICALLY INSIGNIFICANT GROWTH AILEEN Urine, clean voided 06/11/2023 2:26 PM SCHEDULE MANAGER 06/12/2023 12:13 PM SCHEDULE MANAGER Narrative AILEEN - 06/13/2023 5:28 PM SCHEDULE MANAGER Testing performed by [facility] Microbiology Laboratory ([phone]) us Servando Torre MD LAB MICROBIOLOGY - GENERAL ORDERABLES Final Result [facility] [address] Department [place] [address] documented in this encounter Visit Diagnoses Diagnosis UTI symptoms documented in this encounter Care Teams Battery Vent Plug Inserter Relationship Specialty Start Date End Date Servando Torre MD [facility] [address] [place] [address] PCP - General Family Medicine 06/19/22 Mariela Denton MD [address] [place] [address] Referring Physician Gastroenterology 06/19/22 Lexis Barroso OD [address] [place] [address] Machinist Supervisor 09/19/22 documented as of this encounter
--- OUTSIDE RECORDS SUMMARY | 2024-08-18 11:02 | XMS_ITS | Encounter Summary ---
Author Organization [facility] Healthcare Address [address] [place] [address] Care Team Providers Care Black Mill Operator Name Role Phone Servando Torre MD Primary Care Provider Mariela Denton MD Unavailable [phone] [phone] Lexis Barroso OD Unavailable +1- [phone] Reason for Visit * Reason Onset Date Comments CHRISTELLE Questions 06/06/2023 Encounter Details Date Type Department Care Team (Late st Contact Info) Description 06/06/2023 Telephone [facility] Medical Group Primary Care at [address] [address] Servando Torre MD [address] [place] [address] [address] [place] [address] CHRISTELLE Questions Social History Tobacco [...] on file Legal Sex Female 9:30 AM BLUING OVEN TENDER Gender Identity Female 04/05/2022 6:17 PM CDT Sexual Orientation Straight 04/05/2022 6: 17 PM CDT documented as of this encounter Miscellaneous Notes * Telephone Encounter - Regina Loo MA - 06/09/2023 9:16 AM BLUING OVEN TENDER Spoke to pt daughter Aby, informed her that the pt can take Pravastain, Aby voiced understanding. Aby would also like a urine test for pt when she comes in for an appointment on 06/11/23 NG OVEN TENDER * Telephone Encounter - Rhonda Olivas - 06/06/2023 3:42 PM CST CHRISTELLE Questions (Message from [facility] Access Center-Program Director Group Work): Has patient been discharged at time of call? Yes Date Admitted: 06/03 Date Discharged: 06/06 Facility Admitted To: [facility] Reason for Stay? Admitted for possible stroke, [...] message need to be routed? Yes-Action Needed NG OVEN TENDER documented in this encounter Plan of Treatment Not on file documented as of this encounter Visit Diagnoses Not on filedocumented in this encounter Care Teams Black Mill Operator Relationship Specialty Start Date End Date Servando Torre MD [address] [facility] [address] [place] [address] PCP - General Family Medicine 06/19/22 Mariela Denton MD [address] [place] [address] Referring Physician Gastroenterology 06/19/22 Lexis Barroso OD [address] [place] [address] Flight Hostess 09/19/22 documented as of this encounter
--- OUTSIDE RECORDS SUMMARY | 2024-08-18 11:02 | XMS_ITS | Encounter Summary ---
Author Organization [facility] Address [address] [place] [address] Phone Care Team Providers Care Newspaper Press Operator Apprentice Name Role Phone Servando Torre MD Primary Care Provider [phone] [phone] Mariela Denton MD Unavailable [phone] [phone] Lexis Barroso OD Unavailable +1- [phone] Reason for Visit * Reason Onset Date Comments Updated Entyvio Order - Provider Change 04/29/20 Encounter Details Date Type Department Care Team (Late st Contact Info) Description 04/29/2023 Documentation [facility] Gastroenterology [address] [facility] 12th [place] [address] [place] [address] Janice Baez LPN Updated Entyvio Order - [...] file Legal Sex Female 9:30 AM PUBLIC HEALTH PHYSICIAN Gender Identity Female 04/05/2022 6:17 PM [...] care, however, Dr. Denton has left the hyndman. Pt is now scheduled to establish care with Dr. Jousé Cook who will be taking over management [...] requested. -------Fax Transmission Report------- To: Recipient at [phone] Subject: Joseph Allen - Updated Infusion Order [Secure] Result: The transmission was successful. Explanation: All Pages Ok Pages Sent: 3 Connect Time: 0 minutes, 45 seconds Transmit Time: 04/29/2023 12:58 Transfer Rate: [id number] Status Code: 0000 Retry Count: 0 Job Id: [id number] Unique Id: [id number] Fax Line: 1 Fax Logistics Intern: [id number] documented in this encounter Plan of Treatment [...] 023 documented in this encounter Care Teams Newspaper Press Operator Apprentice Relationship Specialty Start Date End Date Servando Torre MD [address] [address] PCP - General Family Medicine 06/19/22 Mariela Denton MD [address] [place] [address] Referring Physician Gastroenterology 06/19/22 Lexis Barroso OD [address] [place] [address] Chimney Mechanic 09/19/22 documented as of this encounter
--- OUTSIDE RECORDS SUMMARY | 2024-08-18 11:02 | XMS_ITS | Encounter Summary ---
Author Organization [facility] Address [address] [place] [address] Phone Care Team Providers Care Public Health Aides Teacher Name Role Phone Servando Torre MD Primary Care Provider +1 [phone] Mariela Denton MD Unavailable [phone] [phone] Lexis Barroso OD Unavailable +1- [phone] Encounter Details Date Type Department Care Team (Late st Contact Info) Description 05/16/2023 9:00 AM CDT Office Visit [facility] Gastroenterology [address] [facility] 12th [place] [address] [place] [address] Mayra Zelaya, CONSTANZA [address] [place] [address] Ulcerative pancolitis without complication (CMS/HCC) (HCC) (Primary [...] on file Legal Sex Female 9:30 AM TOOLS PROGRAMMER Gender Identity Female 04/05/2022 6:17 PM [...] in the rectosigmoid colon. Her 6TG 293 [id number] on Azathioprine 100mg daily on 05/30/2022 [...] created in part with the assistance of [employer] voice recognition software. Roof Slater variances may occur. documented in this encounter Plan of Treatment Not on file documented as of this encounter Visit Diagnoses Diagnosis Ulcerative pancolitis without complication (CMS/HCC) (HCC)- Primary Elevated liver enzymes Other nonspecific abnormal serum enzyme levels Follow-up examination following treatment with high-risk medication Follow-up examination following completed treatment with high-risk medications, not elsewhere classified documented in this encounter Care Teams Public Health Aides Teacher Relationship Specialty Start Date End Date Servando Torre MD [address] [address] PCP - General Family Medicine 06/19/22 Mariela Denton MD [address] [place] [address] Referring Physician Gastroenterology 06/19/22 Lexis Barroso OD [address] [place] [address] Forklift Wheel Loader 09/19/22 documented as of this encounter
--- OUTSIDE RECORDS SUMMARY | 2024-08-18 11:02 | XMS_ITS | Encounter Summary ---
Author Organization [facility] Healthcare Address [address] [place] [address] Care Team Providers Care Rn Baby Name Role Phone Servando Torre MD Primary Care Provider [phone] Mariela Denton MD Unavailable [phone] [phone] Lexis Barroso OD Unavailable +1- [phone] Reason for Visit * Reason Onset Date Comments Medical Question/Miscellaneous 05/07/2023 Encounter Details Date Type Department Care Team (Late st Contact Info) Description 05/07/2023 Telephone [facility] Medical Group Primary Care at [address] [address] Servando Torre MD [address] [place] [address] [address] [place] [address] Medical Question/Miscellaneous Social History Tobacco [...] file Legal Sex Female 9:30 AM INDUSTRIAL 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 Yes-FYI Only documented in this encounter Plan of Treatment Not on file documented as of this encounter Visit Diagnoses Not on filedocumented in this encounter Care Teams Rn Baby Relationship Specialty Start Date End Date Servando Torre MD [address] [address] PCP - General Family Medicine 06/19/22 Mariela Denton MD [address] [place] [address] Referring Physician Gastroenterology 06/19/22 Lexis Barroso OD [address] [place] [address] Coater Hand 09/19/22 documented as of this encounter
--- OUTSIDE RECORDS SUMMARY | 2024-08-18 11:02 | XMS_ITS | Encounter Summary ---
Author Organization [facility] Address [address] [place] [address] Phone Care Team Providers Care Agricultural Plow Operator Name Role Phone Servando Torre MD Primary Care Provider +1 [phone] Mariela Denton MD Unavailable +1 [phone] Lexis Barroso OD Unavailable +1- [phone] Encounter Details Date Type Department Care Team (Late st Contact Info) Description 05/07/2023 Telephone [facility] [address] [facility] 6th [place] [address] [place] [address] Kiara Houser Social History Tobacco [...] file Legal Sex Female 9:30 AM AUTO SLIP COVER INSTALLER Gender Identity Female 04/05/2022 6:17 PM [...] on filedocumented in this encounter Care Teams Agricultural Plow Operator Relationship Specialty Start Date End Date Servando Torre MD [address] [address] PCP - General Family Medicine 06/19/22 Mariela Denton MD [address] [place] [address] Referring Physician Gastroenterology 06/19/22 Lexis Barroso OD [address] [place] [address] Dewatering Filtering Supervisor 09/19/22 documented as of this encounter
--- OUTSIDE RECORDS SUMMARY | 2024-08-18 11:02 | XMS_ITS | Encounter Summary ---
Author Organization [facility] Address [address] [place] [address] Phone Care Team Providers Care Buffing Wheel Operator Name Role Phone Servando Torre MD Primary Care Provider +1 [phone] Mariela Denton MD Unavailable +1 [phone] Lexis Barroso OD Unavailable +1- [phone] Encounter Details Date Type Department Care Team (Late st Contact Info) Description 05/14/2023 Telephone [address] [facility] First Floor [address] [place] [address] Pablo Burt MSW Social History [...] file Legal Sex Female 9:30 AM HVAC SERVICE MANAGER Gender Identity Female 04/05/2022 6:17 PM CDT Sexual Orientation Straight 04/05/2022 6: 17 PM CDT documented as of this encounter Miscellaneous Notes * Telephone Encounter - Pablo Burt MSW - 05/14/2023 2:50 PM CDT This Stripping Cutter And Winder (SW) called Aby per a referral. Tatyana [...] beginning the process of looking for an CLEMENTINE in case it is needed. Family agreed [...] SW suggested resources such as Support Groups, In-[facility]l [place] Care, and resources through [facility]. SW emailed the below: I'm glad we were able to talk yesterday. I've collected the resources that we discussed below and anything else that I think could help. Always feel free to reach out to us any time. Home Care Agencies Below is a list of home care agencies. These agencies do a mix of jar capper care and helping individuals with activities of daily living, like grooming and showering. Be sure to make a list of your specific needs to ensure that they are able to help in the areas that you need. I've also included a sheet from the Alzheimer's Association on how to choose a manager home improvement and what questions to ask. Additionally, some find it more helpful and less expensive to hire a private caregiver. I would suggest checking with local organizations, such as churches and local nursing/social work schools to see if they have anyone that can help with caregiving. Many caregivers have also found the website [employer] to be helpful in finding a local independent background checked aide. The website does cost money to use. [facility] [address] [place] [address] https://[employer]/ Eduardo Parikh ([place]) [address] [place] [id number] https://www.Clinicient.Breach Security/pine level/home Home Instead [address] [place] [address] https://www.Regroup [facility].Breach Security/location/851 Adult Day Centers Below is the information for [facility]'s Adult Day Center. I would suggest checkingout [facility] other programs and services too: [facility] https://[facility].org/ [address] [place] [address] Guides for helping to determine if someone is safe to be home alone: Below is a guide that can be useful for determining if someone is safe to be home alone. While you are testing this, please continue to be as observant as you can and have a plan to get someone to her house as quickly as possible if needed. https://alzheimer.ca/sites/default/files/documents/vawfrxtpztnwr-jjkrl-nojvivrb- ycm-rjjrmc-nkgmr.pdf Home Safety Guides Whether living alone or not, here are two guides to creating a safe home for someone with dementia: https://www.jerry.nih.gov/health/irno-xoukai-riv-alzheimers-disease https://www.alz.org/help-support/caregiving/safety/home-safety Fall detector, landline This device appears to only need a landline phone, it also has an optional ???Fall Detection.?? I'd suggest calling customer service and support and seeing if this meets your needs. Additionally, doyou think your Mom would be willing to wear this? https://www.qualifyor/product/jhxw-xyijyf-mwvztwpu/ Education Resources Upcoming local classes: ?[facility] Alzheimer Disease Research [place] presentations. These are presentations from experts in the field of dementia and dementia caregiving. There is a new presentation over Zoom every month and they keep a library of past presentations. Please check here: https://[facility]/center-events// ?The Alzheimer's Association has many monthly classes in the community. For a listing of upcoming classes, their locations, and times please contact their 17/02 Helpline at . ?[facility] Care: [facility] has caregiver training classes and support groups in [place] and [place]. I'd suggest checking out their website and calling them for more information: https://[facility].org/ 833.436.5171 ?[employer] a local group focused on educating and training caregivers has a Youtube channel full of useful videos and trainings: https://www.Refund Exchangeube.com/@memorycarehomesolutions/videos Books: ?The 36 Hour Day by Ender [...] on filedocumented in this encounter Care Teams Buffing Wheel Operator Relationship Specialty Start Date End Date Servando Torre MD [address] [facility] [address] [place] [address] PCP - General Family Medicine 06/19/22 Mariela Denton MD [address] [place] [address] Referring Physician Gastroenterology 06/19/22 Lexis Barroso OD [address] [place] [address] Recorder Helper Gravity Prospecting 09/19/22 documented as of this encounter
--- OUTSIDE RECORDS SUMMARY | 2024-08-18 11:02 | XMS_ITS | Encounter Summary ---
Author Organization [facility] Address [address] [place] [address] Phone Care Team Providers Care Ar Manager Name Role Phone Servando Torre MD Primary Care Provider +1 [phone] Mariela Denton MD Unavailable +1 [phone] Lexis Barroso OD Unavailable +1- [phone] Encounter Details Date Type Department Care Team (Late st Contact Info) Description 06/18/2023 Orders Only [facility] Gastroenterology [facility] [address] [place] [address] Mayra Zelaya, CONSTANZA [address] [place] [address] High risk medications (not anticoagulants) [...] on file Legal Sex Female 9:30 AM AUTOMATION LEAD Gender Identity Female 04/05/2022 6:17 PM [...] Portal with lab order and instructions sent MATION LEAD documented in this encounter Miscellaneous Notes * Addendum Note - Link Gomez - 06/18/2023 11:35 AM CSTAddended by: LINK GOMZE on: 07/24/2023 12:32 PM Modules accepted: Orders MATION LEAD documented in this encounter Plan of Treatment Not on file documented as of this encounter Results * (ABNORMAL) Thiopurine metabolites (07/24/2023 12:36 PM AUTOMATION LEAD) 6-TG, bld 214(L) 235 - 450 [facility] ([place]) Comment: Decreased possibility of response; suboptimal dosing or noncompliance. 6-MMP, bld 2241 < or = 5700 AILEEN RODRIGUEZ ([place]WES) Comment: Decreased risk of hepatotoxicity. ADDITIONAL INFORMATION Testing performed by Liquid Chromatography-Tandem Mass Spectrometry (LC-MS/MS) This test was developed and its performance characteristics determined by [facility] in a manner consistent with CLIA requirements. This test has not been cleared or approved by the U.S. Food and Drug Administration. Test Performed by: [facility] - [facility] [address] [place] [address] Scrap Cutter: Holden Redman M.D. Ph.D.; CLIA# [id number] Blood 07/24/2023 12:3 6 PM AUTOMATION LEAD 07/24/2023 12:41 PM AUTOMATION LEAD Josué Cook MD LAB BLOOD ORDERABLES F inal Result AILEEN RODRIGUEZ ([place]) 1 [facility] Department [place] [address] documented in this encounter Visit Diagnoses Diagnosis [...] documented as of this encounter Care Teams Ar Manager Relationship Specialty Start Date End Date Servando Torre MD [address] [address] PCP - General Family Medicine 06/19/22 Mariela Denton MD [address] [place] [address] Referring Physician Gastroenterology 06/19/22 Lexis Barroso OD [address] [place] [address] Project Mgr 09/19/22 documented as of this encounter
--- OUTSIDE RECORDS SUMMARY | 2024-08-18 11:02 | XMS_ITS | Encounter Summary ---
Author Organization [facility] Healthcare Address [address] [place] [address] Care Team Providers Care Frit Coater Name Role Phone Servando Torre MD Primary Care Provider [phone] Mariela [place] MD Unavailable +1 [phone] Lexis Barroso OD Unavailable +1- [phone] Reason for Visit * Reason Comments CHRISTELLE Admitted for possibl e stroke, or seizure from epilepsy, UTI wanted to take her off pravastatin and switch to rosuvastatin Encounter Details Date Type Department Care Team (Late st Contact Info) Description 06/11/2023 1:30 PM NEUROLOGY TECHNOLOGIST Office Visit [facility] Medical Group Primary Care at [address] [address] Servando Torre MD [address] [place] [address] [address] [place] [address] Hospital discharge follow-up (Primary Dx); [...] on file Legal Sex Female 9:30 AM NEUROLOGY TECHNOLOGIST Gender Identity Female 04/05/2022 6:17 PM CDT Sexual Orientation Straight 04/05/2022 6: 17 PM CDT documented as of this encounter Last Filed Vital Signs Vital Sign Reading Time Taken Comments Blood Pressure 130/86 06/11/2023 1:44 PM NEUROLOGY TECHNOLOGIST Pulse 91 06/11/2023 1:44 PM NEUROLOGY TECHNOLOGIST Temperature 36.8 ??C (98.3 ??F) 06/11/2023 1:44 PM CS T Respiratory Rate 18 06/11/2023 1:44 PM NEUROLOGY TECHNOLOGIST Oxygen Saturation 95% 06/11/2023 1:44 PM NEUROLOGY TECHNOLOGIST Inhaled Oxygen Concentration - - Weight 68.7 kg (151 lb 8 oz) 06/11/2023 1:44 PM NEUROLOGY TECHNOLOGIST Height 157.5 cm (5' 2 ) 06/11/2023 1:44 PM NEUROLOGY TECHNOLOGIST Body Mass Index 27.71 06/11/2023 1:44 PM NEUROLOGY TECHNOLOGIST documented in this encounter Patient Instructions * Patient Instructions* Servando Torre MD - 06/11/2023 1:30 PM NEUROLOGY TECHNOLOGIST Empiric antibiotics give there may still be infection present Continue current regimen otherwise Continue good efforts to stay hydrated, drink water Thanks for coming in today! My medical assistants and I are thankful you have trusted us with your care, and hope that you received EXCELLENT care today! Please do not hesitate to call if you have any questions or concerns at [phone]. You may receive a phone call, text, MYCHART message, or e-mail asking about your care today. We would love to hear your feedback on how EXCELLENT your care wastoday! Wishing you better health, always. Dr. Torre OLOGY TECHNOLOGIST documented in this encounter Ordered Prescriptions Prescription [...] catheter every 8 (eight) weeks Infused at: [facility] ([facility] order in Epic under [...] been provided to and reviewed with the patient/physician locums urgent care prior to discharge. IServando MD have personally reviewed pertinent Hospital/ER data including [employer] andCare Everywhere if available. This patient's discharge medication list has been reviewed and reconciled with her medication list in the office chart and has also been reviewed with patient and/or caregiver. I have noted any changes. Servando Torre MD OLOGY TECHNOLOGIST documented in this encounter Miscellaneous Notes * Assessment & Plan Note - Servando Torre MD - 06/11/2023 1:42 PM NEUROLOGY TECHNOLOGIST Associated Problem(s): Hospital discharge follow-up (Resolved 08/07/2023) I have reviewed the hospital record, medications, and relevant testing from Lisa Allen's recent admission. Complications and discharge plan have been noted, reviewed. Post-discharge testing has been ordered. OLOGY TECHNOLOGIST documented in this encounter Plan of Treatment Not on file documented as of this encounter Procedures Procedure Name Priority Date/Time Associated Diagnosis Comments POCT URINALYSIS, AUTO W/O SCOPE Routine 06/11/2023 2:26 PM NEUROLOGY TECHNOLOGIST UTI symptoms documented in this encounter Results * (ABNORMAL) POCT UA, AUTO W/O SCOPE (06/11/2023 2:26 PM NEUROLOGY TECHNOLOGIST) Color, Urine, POC Yellow Clarity, ur, POC Clear Clear Glucose, ur, POC Negative Negative MG/DL Bilirubin, ur, POC Negative Negative, Small, Moderate, Large Ketones, ur, POC Negative Negative Specific Calhoun, POC 1.015 1.003 - 1.030 Blood, ur, POC Trace(A) Negative pH, ur, POC 7.0 5.0 - 8.0 Protein, ur, POC Negative Negative Urobilinogen, Urine, POC 0.2 mg/dL Leukocytes, ur, POC Trace(A) Negative Nitrite, ur, POC Negative Negative Appearance, fld Clear Clear Urine, clean voided 06/11/2023 2:26 PM NEUROLOGY TECHNOLOGIST Servando Torre MD POINT OF CARE TEST ORDERABL ES Final Result * Urine culture Urine, clean voided (06/11/2023 2:26 PM NEUROLOGY TECHNOLOGIST) Report Final Report: Less than 100,000 colonies/mL (clinically insignificant growth based on current clinical standards) AILEEN MATTHEW Comment:Testing performed by : [facility], [address] [place]., [address] Organism (CLINICALLY INSIGNIFICANT GROWTH AILEEN Urine, clean voided 06/11/2023 2:26 PM NEUROLOGY TECHNOLOGIST 06/12/2023 12:13 PM NEUROLOGY TECHNOLOGIST Narrative AILEEN MATTHEW - 06/13/2023 5:28 PM NEUROLOGY TECHNOLOGIST Testing performed by [facility] Microbiology Laboratory ([phone]) Servando Torre MD LAB MICROBIOLOGY - GENERAL ORDERABLES Final Result Performing Organization Address City/State/ZIP Co ma Phone Number AILEEN [address] [place] [address] documented in this encounter Visit [...] 06/11/2023 documented in this encounter Care Teams Frit Coater Relationship Specialty Start Date End Date Servando Torre MD [facility] [address] [address] PCP - General Family Medicine 06/19/22 Mariela [place] MD [facility] [address] [place] [address] Referring Physician Gastroenterology 06/19/22 Lexis Barroso OD [address] [place] [address] Hospitality Associate 09/19/22 documented as of this encounter
--- OUTSIDE RECORDS SUMMARY | 2024-08-18 11:03 | XMS_ITS | Encounter Summary ---
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 73 m2 [facility] Comment: Interpretive Data Reference Interval Normal ?>/= [...] ORDERABLES Final Result [facility] [address] Department [place] [address] * Differential, auto (03/21/2023 3:20 PM CDT) Pathologist [facility] Neutrophil abs 4.2 1.7 - 6.5 K/cumm [facility] Imm gran abs 0.0 0.0 - 0.1 K/cumm [facility] Lymphocyte abs 1.9 0.8 - 3.3 K/cumm [facility] Monocyte abs 0.6 0.2 - 0.8 K/cumm [facility] Eosinophil abs 0.2 0.0 - 0.5 K/cumm [facility] Basophil abs 0.1 0.0 - 0.1 K/cumm [facility] Neutrophil pct 59.6 % [facility] Comment: Interpretive Data Percent cell count reference ranges are not reported, since discordance with absolute values may lead to misinterpretation of CBC data. Current Interpretive Data was last revised on 2017. Imm gran pct 0.4 % [facility] Comment: Interpretive Data Percent cell count reference ranges are not reported, since discordance with absolute values may lead to misinterpretation of CBC data. Current Interpretive Data was last revised on 2017. Lymphocyte pct 27.6 % [facility] Comment: Interpretive Data Percent cell count reference ranges are not reported, since discordance with absolute values may lead to misinterpretation of CBC data. Current Interpretive Data was last revised on 2017. Monocyte pct 8.8 % [facility] Comment: Interpretive Data Percent cell count reference ranges are not reported, since discordance with absolute values may lead to misinterpretation of CBC data. Current Interpretive Data was last revised on 2017. Eosinophil pct 2.9 % [facility] Comment: Interpretive Data Percent cell count reference ranges are not reported, since discordance with absolute values may lead to misinterpretation of CBC data. Current Interpretive Data was last revised on 2017. Basophil pct 0.7 % [facility] Comment: Interpretive Data Percent cell count reference ranges are not reported, since discordance with absolute values may lead to misinterpretation of CBC data. Current Interpretive Data was last revised on 2017. Blood 03/21/2023 3:20 PM CDT 03/21/2023 6:04 PM CDT us Servando Torre MD LAB BLOOD ORDERABLES Final Result AILEEN MATTHEW [address] Department [place] [address] * (ABNORMAL) Comprehensive metabolic panel (03/21/2023 3:20 [...] MD LAB BLOOD ORDERABLES Final Result AILEEN [address] Department [place] [address] * (ABNORMAL) Lipid panel (03/21/2023 [...] PM CDT 03/21/2023 6:04 PM CDT Result [facility] Servando Torre MD LAB BLOOD ORDERABLES Final Result Performing Organization Address [facility] Phone Number [facility] [address] [facility] [place] [address] * (ABNORMAL) Hemoglobin A1c (03/21/2023 3:20 PM CDT) Hgb A1C 6.1(H) 4.0 - 5.6 % AILEEN Estimated Average Glucose 128 mg/dL AILEEN Comment: The ADA recommends reporting an estimated Average Glucose (eAG) with all Hemoglobin A1c results using the equation derived from a study of 507 normal and diabetic adults. ??Minority populations were underrepresented and children were not included. ?? (Diabetes Care 31:9188-9481, 2008). ??The eAG is not equivalent to a fasting glucose. Blood 03/21/2023 3:20 PM CDT 03/21/2023 6:04 PM CDT Servando Torre MD LAB BLOOD ORDERABLES Final Result Performing Organization Address [facility] Phone Number [facility] [address] [place] [address] * (ABNORMAL) Albumin Creatinine Ratio, Urine (03/21/2023 [...] PM CDT 03/21/2023 6:04 PM CDT Result [facility] Servando Torre MD LAB URINE ORDERABLES Final Result Performing Organization Address [facility] de Phone Number AILEEN MATTHEW [address] Department [place] [address] * (ABNORMAL) CBC with auto differential (03/21/2023 [...] BLOOD ORDERABLES Final Result Performing Organization Address [facility] de Phone Number AILEEN MATTHEW [address] Department [place] [address] documented in this encounter Visit Diagnoses Diagnosis Hypertension, essential Unspecified essential hypertension Hypertension associated with type 2 diabetes mellitus (HCC) Hyperlipidemia due to type 2 diabetes mellitus (HCC) Mixed hyperlipidemia documented in this encounter Care Teams Automotive Quality Engineer Relationship Specialty Start Date End Date Servando Torre MD [address] [address] PCP - General Family Medicine 06/19/22 Mariela [place] MD [address] [place] [address] Referring Physician Gastroenterology 06/19/22 Lexis Barroso OD [address] [place] [address] Piano Instructor 09/19/22 documented as of this encounter
--- OUTSIDE RECORDS SUMMARY | 2024-08-18 11:03 | XMS_ITS | Encounter Summary ---
Author Organization [facility] Healthcare Address [address] [place] [address] Care Team Providers Care Medical Care Evaluation Specialist Name Role Phone Servando Torre MD Primary Care Provider +1- [phone] Mariela [place] MD Unavailable +1 -[phone] Lexis Barroso OD Unavailable +1- [phone] Reason for Referral * MRI/CAT/PET Scan (Routine) - Closed Specialty Diagnoses / Procedures Referred By Contclemencia braswell Referred To Contact Radiology Diagnoses Liver nodule Procedures CT Abdomen Pelvis W Contrast Marixa San NP [address] [place] [address] Phone: tel: fax: [address] [address] Referral ID Status Reason Start Date Expiration Date Visits Re quested Visits Authorized [id number] Closed 02/24/2023 2024 1 1 Reason for Visit * MRI/CAT/PET Scan (Routine) - Closed Specialty Diagnoses / Procedures Referred By Contac t Referred To Contact Radiology Diagnoses Liver nodule Procedures CT Abdomen Pelvis W Contrast Marixa San NP [address] [place] [address] Phone: tel: fax: [address] [address] Referral ID Status Reason Start Date Expiration Date Visits Re quested Visits Authorized [id number] Closed 02/24/2023 2024 1 1 Encounter Details Date Type Department Care Team (Latest Contact Info) Description 03/18/2023 2:07 PM CDT - 03/18/2023 11:59 PM CDT Hospital Encounter [facility] [address] [place] [address] Liver nodule Discharge Disposition: Discharge to home [...] on file Legal Sex Female 9:30 AM CASE FILLER Gender Identity Female 04/05/2022 6:17 PM CDT [...] AM T: ??03/20/2023 10:50 AM Report ID: [id number] Reading Location: ??[id number] Procedure Note Emanuel Baldwin MD - 03/20/2023 [...] Emanuel Baldwin M.D. RB: MARISOL Report ID: [id number] Reading Location: [place] [address] Marixa San NP IMG CT PROCEDURES Final [...] mL documented in this encounter Care Teams Medical Care Evaluation Specialist Relationship Specialty Start Date End Date Servando Torre MD [address] [facility] [address] [place] [address] PCP - General Family Medicine 06/19/22 Mariela [place] MD [address] [place] [address] Referring Physician Gastroenterology 06/19/22 Lexis Barroso OD [address] [place] [address] Assistant Portfolio Manager 09/19/22 documented as of this encounter
--- OUTSIDE RECORDS SUMMARY | 2024-08-18 11:03 | XMS_ITS | Encounter Summary ---
Author Organization [facility] Medical Group Address [address] [facility] [address] [place] [address] Care Team Providers Care Manager Content Name Role Phone Servando Torre MD Primary Care Provider +1- [phone] Mariela [place] MD Unavailable [phone] -[phone] Lexis Barroso OD Unavailable +1- [phone] Reason for Visit * Reason Comments Follow-up 3 month f/u Encounter Details Date Type Department Care Team (Late st Contact Info) Description 03/27/2023 2:00 PM CDT Office Visit [facility] Primary Care at [address] [address] Servando Torre MD [address] [place] [address] [address] [place] [address] Primary hypertension (Primary Dx); Prediabetes; [...] on file Legal Sex Female 9:30 AM BILLING AND 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 You may receive a phone call, text, [...] and children were not included. (Diabetes Care 31:8782-8810, 2008). The eAG is not equivalent to [...] epilepticus (CMS/HCC) (HCC) Comments: continues follow up [facility] neuro tolerating Keppra Need for pneumococcal 20-valent conjugate vaccination - Pneumococcal conjugate vaccine 20-valent IM (Prevnar-20) Servando Torre MD This office note has been partially dictated using [employer] software, and as a result portions of the record may have been created with this software. Occasional wrong-word or '[id number]' substitutions may have occurred due to the [...] documented in this encounter Care Teams Manager Content Relationship Specialty Start Date End Date Servando Torre MD [address] [facility] [address] [place] [address] PCP - General Family Medicine 06/19/22 Mariela [place] MD [address] [place] [address] Referring Physician Gastroenterology 06/19/22 Lexis Barroso OD [address] [place] [address] R D Engineer 09/19/22 documented as of this encounter
--- OUTSIDE RECORDS SUMMARY | 2024-08-18 11:03 | XMS_ITS | Encounter Summary ---
Author Organization [facility] Medical Group Address [address] [facility] [address] [place] [address] Care Team Providers Care House Detective Name Role Phone Servando Torre MD Primary Care Provider +1 [phone] Mariela [place] MD Unavailable [phone] -[phone] Lexis Barroso OD Unavailable +1- [phone] Encounter Details Date Type Department Care Team (Late st Contact Info) Description 03/21/2023 3:00 PM CDT Lab [facility] Medical [facility] Outpatient Lab at [address] [address] Nodule of kidney (Primary Dx) [...] file Legal Sex Female 9:30 AM DIRECTOR MEDICAL AFFAIRS Gender Identity Female 04/05/2022 6:17 PM CDT Sexual Orientation Straight 04/05/2022 6: 17 PM CDT documented as of this encounter Plan of Treatment Not on file documented as of this encounter Visit Diagnoses Diagnosis Nodule of kidney- Primary documented in this encounter Care Teams House Detective Relationship Specialty Start Date End Date Servando Torre MD [address] [facility] [address] [place] [address] PCP - General Family Medicine 06/19/22 Mariela [place] MD [address] [place] [address] Referring Physician Gastroenterology 06/19/22 Lexis Barroso OD [address] [place] [address] Sanitation Worker 09/19/22 documented as of this encounter
--- OUTSIDE RECORDS SUMMARY | 2024-08-18 11:03 | XMS_ITS | Encounter Summary ---
Author Organization [facility] Address [address] [place] [address] Phone Care Team Providers Care Clinical Informatics Specialist Name Role Phone Servando Torre MD Primary Care Provider +1 [phone] Mariela [place] MD Unavailable [phone] [phone] Lexis Barroso OD Unavailable +1- [phone] Reason for Visit * Reason Onset Date Comments PA for Azathiopurine 04/04/2023 PA Approved 04/04/2023 Encounter Details Date Type Department Care Team (Late st Contact Info) Description 04/04/2023 Documentation [facility] Gastroenterology [address] [facility] 12th [place] [address] [place] [address] Coty Sorensen for Azathiopurine; PA Approved Social [...] on file Legal 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 Gender Identity Female 04/05/2022 6:17 PM CDT Sexual Orientation Straight 04/05/2022 6: 17 PM CDT documented as of this encounter Progress Notes * Coty Sorensen - 04/04/2023 3:58 PM CDT 04/07/23 - PA approved through [employer] starting 01/04/2023 through 04/04/2024 (#90 per 90 days) PA submitted to [employer] through [facility] for [place] (#90 per 90 days) documented in this encounter Plan of Treatment Not on file documented as of this encounter Visit Diagnoses Not on filedocumented in this encounter Care Teams Clinical Informatics Specialist Relationship Specialty Start Date End Date Servando Torre MD [address] [address] PCP - General Family Medicine 06/19/22 Mariela [place] MD [facility] [address] [place] [address] Referring Physician Gastroenterology 06/19/22 Lexis Barroso OD [address] [place] [address] Therapeutic Case Manager 09/19/22 documented as of this encounter
--- OUTSIDE RECORDS SUMMARY | 2024-08-18 11:03 | XMS_ITS | Encounter Summary ---
Author Organization [facility] Medical Group Address [address] [facility] [address] [place] [address] Care Team Providers Care Junior Media Buyer Name Role Phone Servando Torre MD Primary Care Provider +1- [phone] Mariela [place] MD Unavailable +1 -[phone] Lexis Barroso OD Unavailable +1- [phone] Encounter Details Date Type Department Care Team (Late st Contact Info) Description 03/21/2023 Telephone [facility] Medical Group Primary Care at [address] [address] Regina Loo, KRISTINA Social History [...] on file Legal Sex Female 9:30 AM EMBEDDER Gender Identity Female 04/05/2022 6:17 PM CDT [...] as of this encounter Care Teams Junior Media Buyer Relationship Specialty Start Date End Date Servando Torre MD [address] [facility] [address] [place] [address] PCP - General Family Medicine 06/19/22 Mariela [place] MD [address] [place] [address] Referring Physician Gastroenterology 06/19/22 Lexis Barroso OD [address] [place] [address] Building Services Coordinator 09/19/22 documented as of this encounter
--- OUTSIDE RECORDS SUMMARY | 2024-08-18 11:03 | XMS_ITS | Encounter Summary ---
Author Organization [facility] Address [address] [place] [address] Phone Care Team Providers Care Associate Financial Planner Name Role Phone Servando Torre MD Primary Care Provider +1 [phone] Mariela [place] MD Unavailable +1 -[phone] Lexis Barroso OD Unavailable +1- [phone] Encounter Details Date Type Department Care Team (Late st Contact Info) Description 04/11/2023 Telephone [facility] [address] [facility] 6th [place] [address] [place] [address] Lizzy Young Social History Tobacco [...] Legal Sex Female 9:30 AM DIRECTOR OF GOLF Gender Identity Female 04/05/2022 6:17 PM CDT [...] on filedocumented in this encounter Care Teams Associate Financial Planner Relationship Specialty Start Date End Date Servando Torre MD [facility] [address] [address] PCP - General Family Medicine 06/19/22 Mariela [place] MD [address] [place] [address] Referring Physician Gastroenterology 06/19/22 Lexis Barroso OD [address] [place] [address] Gunstock Spray Unit Adjuster 09/19/22 documented as of this encounter
--- OUTSIDE RECORDS SUMMARY | 2024-08-18 11:03 | XMS_ITS | Encounter Summary ---
Author Organization [facility] Healthcare Address [address] [place] [address] Care Team Providers Care Front Worker Name Role Phone Servando Torre MD Primary Care Provider +1- [phone] Mariela Denton MD Unavailable +1 -[phone] Lexis Barroso OD Unavailable +1- [phone] Reason for Referral * MRI/CAT/PET Scan (Routine) - Closed Specialty Diagnoses / Procedures Referred By Angel braswell Referred To Contact Radiology Diagnoses Nodule of kidney Procedures MRI Abdomen Kidney W WO Contrast Marixa San NP [address] [place] [address] Phone: tel: fax: [address] [phone] Referral ID Status Reason Start Date Expiration Date Visits Re quested Visits Authorized [id number] Closed 03/21/2023 04/19/2024 1 1 Reason for Visit * MRI/CAT/PET Scan (Routine) - Closed Specialty Diagnoses / Procedures Referred By Contclemencia braswell Referred To Contact Radiology Diagnoses Nodule of kidney Procedures MRI Abdomen Kidney W WO Contrast Marixa San NP [address] [place] [address] Phone: tel: fax: [address] [address] Referral ID Status Reason Start Date Expiration Date Visits Re quested Visits Authorized [id number] Closed 03/21/2023 04/19/2024 1 1 Encounter Details Date Type Department Care Team (Latest Contact Info) Description 04/24/2023 7:51 AM CDT - 04/24/2023 11:59 PM CDT Hospital Encounter [facility] 1 [place] [address] Nodule of kidney Discharge Disposition: Discharge to [...] on file Legal Sex Female 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 JA: JAYLEEN Report ID: [id number] Reading Location: [place] [address] Marixa San EVENT PROMOTIONS COORDINATOR IMG MRI PROCEDURES Final Result documented in [...] mL documented in this encounter Care Teams Front Worker Relationship Specialty Start Date End Date Servando Torre MD [address] [facility] 130 [place] [address] PCP - General Family Medicine 06/19/22 Mariela Denton MD [address] [place] [address] Referring Physician Gastroenterology 06/19/22 Lexis Barroso OD [address] [place] [address] Residential Recycle Driver 09/19/22 documented as of this encounter
--- OUTSIDE RECORDS SUMMARY | 2024-08-18 11:03 | XMS_ITS | Encounter Summary ---
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 [address] [place] [address] PCP - General Family Medicine 06/19/22 Mariela Denton MD [address] [place] [address] Referring Physician Gastroenterology 06/19/22 Lexis Barroso OD [address] [place] [address] Turner And Former Automatic 09/19/22 documented as of this encounter
--- OUTSIDE RECORDS SUMMARY | 2024-08-18 11:03 | XMS_ITS | Encounter Summary ---
Author Organization [facility] Medical Group Address [address] [facility] [address] [place] [address] Care Team Providers Care Credentialing Coordinator Name Role Phone Servando Torre MD Primary Care Provider +1- [phone] Mariela Denton MD Unavailable +1 -[phone] Lexis Barroso OD Unavailable +1- [phone] Reason for Visit * Reason Onset Date Comments Medical Question/Miscellaneous 04/03/2023 Encounter Details Date Type Department Care Team (Late st Contact Info) Description 04/03/2023 Telephone [facility] Medical [facility] Primary Care at [address] [address] Servando Torre MD [address] [place] [address] [address] [place] [address] Medical Question/Miscellaneous Social History Tobacco [...] on file 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 Caller???s Call back #: [phone] Does message need to be routed? Yes-FYI Only documented in this encounter Plan of Treatment Not on file documented as of this encounter Visit Diagnoses Not on filedocumented in this encounter Care Teams Credentialing Coordinator Relationship Specialty Start Date End Date Servando Torre MD [facility] [place] 130 [place] [address] PCP - General Family Medicine 06/19/22 Mariela Denton MD [address] [place] [address] Referring Physician Gastroenterology 06/19/22 Lexis Barroso OD [address] [place] [address] Eyelet Punch Operator 09/19/22 documented as of this encounter
--- OUTSIDE RECORDS SUMMARY | 2024-08-18 11:03 | XMS_ITS | Encounter Summary ---
Author Organization [facility] Address [address] [place] [address] Phone Care Team Providers Care Improvement Coordinator Name Role Phone Servando Torre MD Primary Care Provider [phone] Mariela Denton MD Unavailable [phone] [phone] Lexis Barroso OD Unavailable +1- [phone] Reason for Visit * Consultation (Routine) - Closed Specialty Diagnoses / Procedures Referred By Angel braswell Referred To Contact Neurology Diagnoses Seizure (HCC) Adria Burleson MD 1 [facility] [address] [place] [address] Phone: tel: fax: Grace Nicolas MD [address] [place] [address] [place] [address] Phone: tel: fax:[phone] Referral ID Status Reason Start Date Expiration Date V isits Requested Visits Authorized [id number] Closed Specialty Services Required 03/03/2023 04/01/2024 1 1 Encounter Details Date Type Department Care Team (Late st Contact Info) Description 04/09/2023 2:00 PM CDT Office Visit [facility] [address] [facility] 6th [place] [address] [place] [address] Grace Nicolas MD 1 [facility] [address] [place] [address] Seizure (HCC) Social History Tobacco Use Types [...] that very mild dementia due to an xe-qx-bql-unclearcause (that is, uncertain cause) is the most [...] for your future (Living Will, Power of Wastewater Project Manager for Health Care). You may wish to consult an sap fico business analyst regarding these matters. Level of Care Recommendation: You can continue to live independently with support from your family. FOLLOW-UP You should return to see either Ms. Chelsie Francisco NP, Ms. Pamela Langston NP, or CHAMP Ashton in [address] Nicolas in about a year. . You can [phone] if you have questions about scheduling. If we ordered blood tests today, please stop by the Express patient testing area on the third floorto have your blood drawn. This is across from the [employer], in the same direction as the [employer] parking garage. You should continue to see your primary care doctor at regular intervals. RESOURCES FOR ADDITIONAL INFORMATION AND SUPPORT We will refer you to our Alzheimer Association Addiction Treatment Counselor. The social welfare clerk will call you in the next 7-10 days. Alzheimer's Association of [place] Chapter: ; (toll free); http://www.alz.org Memory [employer] 719-385-9437 http://memorycareKootenai Health Agency on Aging (serving [facility]) http://[facility].nevada.[facility]/government/hslaaa.html [facility] Agency on Aging (serving [place], [facility] and [facility] http://www.universal health services.org [facility]- provides counseling and help with the aging and ailments of our loved ones. They may be able to provide counseling in your home as well as in their office and services may be covered by Medicare. [address], [place] [address] or [email or web address] - Parking Tickets.Anadys. Website: http://Valued Relationships/services/gzbdyn-yler-lvmesdii/ Mind in Motion, Cognitive Stimulation Through Activity at the [employer]. [address] [facility] [address] [place] [address] http://www.Rock-It Cargo/project/gfph-vw-luslry/ Lewy Body Dementia Association: (toll free); http://www.LBDA.org Association for Frontotemporal Dementias: (toll free); http://www.ftd-picks.org Geriatric Cut Out Stitcher: Decision Point consulting, Ms. Varsha Mcgarry, https://www.decisionpointconsulting.org/ Pathways for aging http://IndependaforCIQUAL.N-of-One/ Yessy Anthony with Next Step Elder Assist, Certified Americanization Teacher, [address], [address] [address]. , fax: [phone]. [email or web address] documented in this encounter Progress Notes * Grace Nicolas MD - 04/09/2023 2:00 PM CDT [facility] NEW PATIENT VISIT Grace Nicolas MD, MSc [facility] Department of Neurology Patient Name: RADHA ALLEN Medical Record Number (MRN): [id number] Date of (): 1945 Encounter Date: 04/09/2023 [...] able to operate household appliances including the refrigerator crater, laundry machines, and wood last maker. She has difficulty using technology, including [...] intact to pin-prick and vibratory sense. Coordination Sfdehz-mzxs-wxttjq and bytq-qoxw-nbco testing were normal. Gait Gait was normal, [...] mildlyimpaired range on tests of semantic memory (Oxford Naming, verbal fluency). Scores were in the [...] are common in patients with active depression. [facility] Neurobehavioral Status Test Results 04/09/2023 7:00 AM [facility] Neurobehavioral Status Exam Results Repository ICF signed? No Verbal Fluency Total Score 10 Oxford Naming (15 item) Total Score 15 MMSE [...] 0 Clinical Dementia Rating 04/09/2023 7:00 AM [facility] CDR/DIAGNOSIS NEW Repository ICF signed? No Memory [...] 05/30/2022 No results found for: TSH , B6OXSOA , F2CFGLH , THYROIDAB Lab Results Component Value Date [...] or Ms. Pamela Langston, or our Physician Platen Drier Operator Ms. Marianne Mccullough in 6 months. --- [...] labs, tests and medical records, time spent obkg-ht-anre with the patient and family during the visit, performing counselling and education, placing orders and documenting the visit in the patient's EHR. Grace Nicolas MD, MSc Multiple Drum Sander Department of Neurology, [facility] [...] that very mild dementia due to an fu-ys-pfi-unclearcause (that is, uncertain cause) is the most [...] for your future (Living Will, Power of Wastewater Project Manager for Health Care). You may wish to consult an sap fico business analyst regarding these matters. Level of Care Recommendation: You can continue to live independently with support from your family. FOLLOW-UP You should return to see either Ms. Chelsie Francisco NP, Ms. Pamela Langston NP, or CHAMP Ashton in [address] Nicolas in about a year. . You can [phone] if you have questions about scheduling. If we ordered blood tests today, please stop by the Express patient testing area on the third floorto have your blood drawn. This is across from the [employer], in the same direction as the [facility] parking garage. You should continue to see your primary care doctor at regular intervals. RESOURCES FOR ADDITIONAL INFORMATION AND SUPPORT We will refer you to our Alzheimer Association Addiction Treatment Counselor. The social welfare clerk will call you in the next 7-10 days. Alzheimer's Association of [place] Chapter: ; (toll free); http://www.alz.org Memory [employer] [phone] http://memorycareKootenai Health Agency on Aging (serving [facility]) http://[facility].nevada.[facility]/government/hslaaa.html [facility] Agency on Aging (serving [place], [facility] and [facility] http://www.universal health services.[facility]- provides counseling and help with the aging and ailments of our loved ones. They may be able to provide counseling in your home as well as in their office and services may be covered by Medicare. [address], [place] [address] or [email or web address] - Parking Tickets.Anadys. Website: http://Valued Relationships/services/mofnbw-hxpe-segjxaxn/ Mind in Motion, Cognitive Stimulation Through Activity at the [place] [employer]. [address] [facility] [address] [place] [address] http://www.The News Funnel.N-of-One/project/ejtk-eb-totcvz/ Lewy Body Dementia Association: (toll free); http://www.LBDA.org Association for Frontotemporal Dementias: (toll free); http://www.ftd-picks.org Geriatric Cut Out Stitcher: Decision Point consulting, Ms. Varsha Mcgarry, https://www.decisionpointconsulting.org/ Pathways for aging http://Genio Studio Ltd/ Yessy Anthony with Next Step Elder Assist, Certified Americanization Teacher, [address], [place] [address]. , fax: [phone]. [email or web address] documented in this encounter Plan of Treatment [...] 04/09/2023 documented in this encounter Care Teams Improvement Coordinator Relationship Specialty Start Date End Date Servando Torre MD [address] [facility] 130 [place] [address] PCP - General Family Medicine 06/19/22 Mariela Denton MD [address] [place] [address] Referring Physician Gastroenterology 06/19/22 Lexis Barroso OD [address] [place] [address] Grade Tamper 09/19/22 documented as of this encounter
--- OUTSIDE RECORDS SUMMARY | 2024-08-18 11:03 | XMS_ITS | Encounter Summary ---
Author Organization [facility] Address [address] [facility] [address] [place] [address] Care Team Providers Care Hogshead Mat Inspector Name Role Phone Servando Torre MD Primary Care Provider +1- [phone] Mariela Denton MD Unavailable +1 -[phone] Lexis Barroso OD Unavailable +1- [phone] Reason for Referral * MRI/CAT/PET Scan (Routine) - Closed Specialty Diagnoses / Procedures Referred By Contac t Referred To Contact Radiology Diagnoses Nodule of kidney Procedures MRI Abdomen Kidney W WO Contrast Marixa San NP [address] [facility] 130 [place] [address] Phone: tel: fax: [address] [address] Referral ID Status Reason Start Date Expiration Date Visits Re quested Visits Authorized [id number] Closed 03/21/2023 04/19/2024 1 1 Encounter Details Date Type Department Care Team (Late st Contact Info) Description 03/21/2023 Orders Only [facility] Primary Care at [address] [address] Marixa San NP [address] [facility] 130 [place] [address] Nodule of kidney (Primary Dx) [...] on file 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 JA: JAYLEEN Report ID: [id number] Reading Location: [place] [address] Marixa San ANALOG IC DESIGN ARCHITECT IMG MRI PROCEDURES Final Result documented in this encounter Visit Diagnoses Diagnosis Nodule of kidney- Primary Nodule of kidney documented in this encounter Care Teams Hogshead Mat Inspector Relationship Specialty Start Date End Date Servando Torre MD [address] [facility] [address] [place] [address] PCP - General Family Medicine 06/19/22 Mariela Denton MD [address] [place] [address] Referring Physician Gastroenterology 06/19/22 Lexis Barroso OD [address] [place] [address] Cutting Machine Tender Helper 09/19/22 documented as of this encounter
--- OUTSIDE RECORDS SUMMARY | 2024-08-18 11:03 | XMS_ITS | Encounter Summary ---
Author Organization [facility] Address [address] [facility] [address] [place] [address] Care Team Providers Care Child Protective Investigator Name Role Phone Servando Torre MD Primary Care Provider +1- [phone] Mariela Denton MD Unavailable +1 -[phone] Lexis Barroso OD Unavailable +1- [phone] Reason for Visit * Reason Onset Date Comments Medical Question/Miscellaneous 03/17/2023 Encounter Details Date Type Department Care Team (Late st Contact Info) Description 03/17/2023 Telephone [facility] Medical [facility] Primary Care at [address] [address] Servando Torre MD [address] [place] [address] [address] [place] [address] Medical Question/Miscellaneous Social History Tobacco [...] on file Legal 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 Caller???s Call back #: [phone] Does message need to be routed? Yes-FYI Only documented in this encounter Plan of Treatment Not on file documented as of this encounter Visit Diagnoses Not on filedocumented in this encounter Care Teams Child Protective Investigator Relationship Specialty Start Date End Date Servando Torre MD [facility] [address] [address] PCP - General Family Medicine 06/19/22 Mariela Denton MD [address] [place] [address] Referring Physician Gastroenterology 06/19/22 Lexis Barroso OD [address] [place] [address] Resource Engineer 09/19/22 documented as of this encounter
--- OUTSIDE RECORDS SUMMARY | 2024-08-18 11:03 | XMS_ITS | Encounter Summary ---
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
--- OUTSIDE RECORDS SUMMARY | 2024-08-18 11:03 | XMS_ITS | Encounter Summary ---
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 SCHEDULING AGENT Gender Identity Female 04/05/2022 6:17 PM CDT Sexual Orientation Straight 04/05/2022 6: 17 PM CDT documented as of this encounter Miscellaneous Notes * Telephone Encounter - Dorcas Holt RT - 03/17/2023 12:16 PM CDT Confirmed appt documented in this encounter Plan of Treatment Not on file documented as of this encounter Visit Diagnoses Not on filedocumented in this encounter Care Teams Returned Telephone Equipment Appraiser Relationship Specialty Start Date End Date Servando Torre MD [facility] [address] [address] PCP - General Family Medicine 06/19/22 Mariela Denton MD [address] [place] [address] Referring Physician Gastroenterology 06/19/22 Lexis Barroso OD [address] [place] [address] Gis Professor 09/19/22 documented as of this encounter
--- OUTSIDE RECORDS SUMMARY | 2024-08-18 11:04 | XMS_ITS | Encounter Summary ---
Author Organization [facility] Medical Group Address [address] [facility] [address] [place] [address] Care Team Providers Care Dining Manager Name Role Phone Servando Torre MD Primary Care Provider +1- [phone] Mariela Denton MD Unavailable +1 -[phone] Lexis Barroso OD Unavailable +1- [phone] Reason for Referral * MRI/CAT/PET Scan (Routine) - Closed Specialty Diagnoses / Procedures Referred By Contac t Referred To Contact Radiology Diagnoses Liver nodule Procedures CT Abdomen Pelvis W Contrast Marixa San NP [address] [facility] 130 [place] [address] Phone: tel: fax: [address] [address] Referral ID Status Reason Start Date Expiration Date Visits Re quested Visits Authorized [id number] Closed 02/24/2023 2024 1 1 Encounter Details Date Type Department Care Team (Late st Contact Info) Description 02/24/2023 Orders Only [facility] Primary Care at [address] [address] Marixa San NP [address] [facility] 130 [place] [address] Liver nodule (Primary Dx) Social [...] on file Legal Sex Female 9:30 AM RISK MANAGEMENT INTERN Gender Identity Female 04/05/2022 6:17 PM [...] AM T: ??03/20/2023 10:50 AM Report ID: [id number] Reading Location: ??[id number] Procedure Note Emanuel Baldwin MD - 03/20/2023 [...] Emanuel Baldwin M.D. RB: RB Report ID: [id number] Reading Location: [id number] Marixa San NP IMG CT PROCEDURES Final Result documented in this encounter Visit Diagnoses Diagnosis Liver nodule- Primary Other specified disorders of liver Liver nodule Other specified disorders of liver documented in this encounter Care Teams Dining Manager Relationship Specialty Start Date End Date Servando Torre MD [address] [facility] 130 [place] [address] PCP - General Family Medicine 06/19/22 Mariela Denton MD [address] [facility] [address] [place] [address] Referring Physician Gastroenterology 06/19/22 Lexis Barroso OD [address] [place] [address] Pretzel Packer 09/19/22 documented as of this encounter
--- OUTSIDE RECORDS SUMMARY | 2024-08-18 11:04 | XMS_ITS | Encounter Summary ---
Author Organization [facility] Healthcare Address [address] [place] [address] Care Team Providers Care Greeter Guest Services Name Role Phone Servando Torre MD Primary Care Provider [phone] Mariela Denton MD Unavailable +1 -[phone] Lexis Barroso OD Unavailable +1- [phone] Reason for Referral * Neurology (Routine) - Closed Specialty Diagnoses / Procedures Referred By Angel braswell Referred To Contact Diagnoses Seizure (HCC) Procedures EEG Adria Burleson MD [address] [place] [address] Phone: tel: fax: [address] [address] Referral ID Status Reason Start Date Expiration Date Visits Re quested Visits Authorized [id number] Closed 02/27/2023 03/28/2024 1 1 Reason for Visit * Neurology (Routine) - Closed Specialty Diagnoses / Procedures Referred By Contclemencia braswell Referred To Contact Diagnoses Seizure (HCC) Procedures EEG Adria Burleson MD [address] [place] [address] Phone: tel: fax: [facility] [address] [place] [address] Referral ID Status Reason Start Date Expiration Date Visits Re quested Visits Authorized [id number] Closed 02/27/2023 03/28/2024 1 1 Encounter Details Date Type Department Care Team (Latest Contact Info) Description 03/07/2023 1:49 PM CDT - 03/07/2023 11:59 PM CDT Hospital Encounter [facility] [place] [facility]) [address] [place] [address] Ellie Sun Seizure (HCC) Discharge Disposition: Discharge [...] on file Legal 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 End Time: 03/07/2023 4:13:22 PM Introduction: Ms. Allen is a 77 y.o. 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 EEG was performed to evaluate for seizures. This is a 32 channel EEG recording acquired on a [employer] EEG-1200 acquisition system. Scalp electrodes were placed [...] convulsions documented in this encounter Care Teams Greeter Guest Services Relationship Specialty Start Date End Date Servando Torre MD [address] [facility] [address] [place] [address] PCP - General Family Medicine 06/19/22 Mariela Denton MD [facility] [address] [place] [address] Referring Physician Gastroenterology 06/19/22 Lexis Barroso OD [address] [place] [address] Security Operations Analyst 09/19/22 documented as of this encounter
--- OUTSIDE RECORDS SUMMARY | 2024-08-18 11:04 | XMS_ITS | Encounter Summary ---
Author Organization [facility] Healthcare Address [address] [place] [address] Care Team Providers Care Grocery Buyer Name Role Phone Servando Torre MD Primary Care Provider +1- [phone] Mariela Denton MD Unavailable +1 -[phone] Lexis Barroso OD Unavailable +1- [phone] Encounter Details Date Type Department Care Team (Latest Contact Info) Description 02/17/2023 5:44 PM CDT - 02/17/2023 11:59 PM CDT Hospital Encounter [facility] Radiology [facility]) [address] [place] [address] Discharge Disposition: Discharge to home or self [...] file Legal Sex Female 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 [address] [place] [address] PCP - General Family Medicine 06/19/22 Mariela Denton MD [facility] [address] [place] [address] Referring Physician Gastroenterology 06/19/22 Lexis Barroso OD [address] [place] [address] Sales Service Professional 09/19/22 documented as of this encounter
--- OUTSIDE RECORDS SUMMARY | 2024-08-18 11:04 | XMS_ITS | Encounter Summary ---
Author Organization [facility] Address [address] [place] [address] Phone Care Team Providers Care Adobe Ball Mixer Name Role Phone Servando Torre MD Primary Care Provider +1 [phone] Mariela Denton MD Unavailable +1 -[phone] Lexis Barroso OD Unavailable +1- [phone] Encounter Details Date Type Department Care Team (Late st Contact Info) Description 03/17/2023 4:30 PM CDT Office Visit [facility] Epilepsy [address] [facility] 6th [place] [address] [place] [address] Adria Burleson MD 1 [facility] [address] [address] [place] [address] Localization-related symptomatic epilepsy and epileptic [...] on file Legal 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 [facility] EEG showed right frontotemporal epileptiform discharges and slowing. 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 -EEG at [facility] on 03/07/2023: This is an abnormal awake [...] being evaluated [facility] ([facility]) for her cognitive symptoms, and her neuropathy is likely due to her chronic, long-standing, previously poorly-co ntrolled type 2 diabetes mellitus. Her asymmetric hyperreflexia on the left arm/leg is concerning for central pathology (I.e., likely structural cervical myelopathy). Given she is otherwise asymptomatic (I.e. no symptoms concerning for acute myelopathy or acute intracranial pathology), we will waitfor her evaluation at the [facility] prior to obtaining further imaging for epilepsy work-up, myelopathy work-up, and cognitive decline work-up to avoid repeat imaging. Of note, given her handedness and unclear lateralization of her clinical and electrographic findings, neuropsychological testing may provide additional benefit in terms of lateralization for her epilepsy. Recommendations: Neuroimaging: Pending [facility] evaluation. Will plan to obtain MRI brain epilepsy protocol with and without contrast and MRI cervical spine without contrast in coordination with the [facility] Electrodiagnostics: None Antiseizure medications (ASM): continue levetiracetam [...] as of this encounter Care Teams Adobe Ball Mixer Relationship Specialty Start Date End Date Servando Torre MD [address] [address] PCP - General Family Medicine 06/19/22 Mariela Denton MD [address] [place] [address] Referring Physician Gastroenterology 06/19/22 Lexis Barroso OD [address] [place] [address] Cosmetology Teacher 09/19/22 documented as of this encounter
--- OUTSIDE RECORDS SUMMARY | 2024-08-18 11:04 | XMS_ITS | Encounter Summary ---
Author Organization [facility] Healthcare Address [address] [place] [address] Care Team Providers Care Central Supply Tech Name Role Phone Servando Torre MD Primary Care Provider +1- [phone] Mariela Denton MD Unavailable +1 -[phone] Lexis Barroso OD Unavailable +1- [phone] Reason for Visit * Reason Comments Vomiting Encounter Details Date Type Department Care Team (Late st Contact Info) Description 03/08/2023 12:09 AM CDT - 03/08/2023 3:58 AM CDT [facility] Emergency Department [address] [place] [address] Silver Montana MD [address] [place] [address] Seizure (HCC) (Primary Dx) Discharge Disposition: Discharge [...] on file 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 she [...] was happening even before she went to [place], but now is more often. The patient [...] She was seen at a hospital in [place] that day. documented in this encounter Miscellaneous [...] AM T: ??03/08/2023 2:34 AM Report ID: [id number] Reading Location: ??[id number] Procedure Note Radha Mendes MD - 03/08/2023 [...] by Radha Mendes M.D. SN: Report ID: [id number] Reading Location: [id number] Silver Montana MD IMG CT PROCEDURES Final Resu lt * eGFR (03/08/2023 12:37 AM CDT) eGFR 88 mL/min/1. 73 m2 [facility] Comment: Interpretive Data Reference Interval Normal ?>/= [...] BLOOD ORDERABLE S Final Result [facility] 1 [facility] [place] [address] * Differential, auto (03/08/2023 12:37 AM CDT) Neutrophil abs 5.7 1.7 - 6.5 K/cumm [facility]) Imm gran abs 0.0 0.0 - 0.1 [...] S Final Result [facility] ([place]) 1 [facility] [place] [address] * Magnesium (03/08/2023 12:37 AM CDT) Magnesium 1.9 1.4 - 2.5 mg/dL [facility] ([place] Blood 03/08/2023 12:3 7 AM CDT 03/08/2023 12:46 AM CDT Jim Dobson MD LAB BLOOD ORDERABLE S Final Result Performing Organization Address City/[facility] Co de Phone Number [facility] ([place]) 1 [facility] Department [place] [employer] [address] * (ABNORMAL) Comprehensive metabolic panel (03/08/2023 12:37 [...] MD LAB BLOOD ORDERABLE S Final Result [facility] ([place]) 1 [facility] Department [place] [address] * (ABNORMAL) CBC with auto differential (03/08/2023 [...] ORDERABLE S Final Result Performing Organization Address City/[facility] Co de Phone Number [facility] ([place]) 1 [facility] Department [place] [address] * ECG 12 lead (03/08/2023 12:31 AM CDT) 03/08/2023 12:3 1 AM CDT Narrative [facility] - 03/08/2023 12:14 PM CDT Vent Rate: 76 bpm RR Interval: 784 msec MT Interval: 143 msec QRS Duration: 98 msec QT Interval: 375 msec QTC Interval: 405 msec P-R-T [place]: 48 - 26 - 24 degrees SINUS RHYTHM NORMAL ECG Electronically Signed By: Austin Horta Jim Dobson MD ECG ORDERABLES Fin al Result Performing Organization Address [facility] Co de Phone Number [facility] [employer] [facility] documented in this encounter Visit Diagnoses Diagnosis [...] RN) documented in this encounter Care Teams Central Supply Tech Relationship Specialty Start Date End Date Servando Torre MD [facility] [address] PCP - General Family Medicine 06/19/22 Mariela Denton MD [facility] [address] [place] [address] Referring Physician Gastroenterology 06/19/22 Lexis Barroso OD [address] [place] [address] Electrical Appliance Mechanic 09/19/22 documented as of this encounter
--- OUTSIDE RECORDS SUMMARY | 2024-08-18 11:04 | XMS_ITS | Encounter Summary ---
Author Organization [facility] Address [address] [facility] [address] [place] [address] Care Team Providers Care Biology Specimen Technician Name Role Phone Servando Torre MD Primary Care Provider +1- [phone] Mariela Denton MD Unavailable +1 -[phone] Lexis Barroso OD Unavailable +1- [phone] Encounter Details Date Type Department Care Team (Late st Contact Info) Description 03/12/2023 Orders Only [facility] Medical [facility] Primary Care at [place] [address] [place] [address] Servando Torre MD [address] [place] [address] [address] [place] [address] Type 2 diabetes mellitus with [...] on file Legal 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 Gender Identity Female 04/05/2022 6:17 PM CDT Sexual Orientation Straight 04/05/2022 6: 17 PM CDT documented as of this encounter Plan of Treatment Not on file documented as of this encounter Visit Diagnoses Diagnosis Type 2 diabetes mellitus with hyperglycemia, without long-term current use of insulin (HCC)- Primary documented in this encounter Care Teams Biology Specimen Technician Relationship Specialty Start Date End Date Servando Torre MD [address] [address] PCP - General Family Medicine 06/19/22 Mariela Denton MD [facility] [address] [place] [address] Referring Physician Gastroenterology 06/19/22 Lexis Barroso OD [address] [place] [address] Heat And Frost Insulator Helper 09/19/22 documented as of this encounter
--- OUTSIDE RECORDS SUMMARY | 2024-08-18 11:04 | XMS_ITS | Encounter Summary ---
Author Organization [facility] Medical Group Address [address] [facility] [address] [place] [address] Care Team Providers Care Epic Ambulatory Analysts Name Role Phone Servando Torre MD Primary Care Provider +1- [phone] Mariela Denton MD Unavailable +1 -[phone] Lexis Barroso OD Unavailable +1- [phone] Reason for Visit * Reason Onset Date Comments Medical Records Request 02/19/2023 Encounter Details Date Type Department Care Team (Late st Contact Info) Description 02/19/2023 Telephone [facility] Medical [facility] Primary Care at [address] [address] Servando Torre MD [address] [place] [address] [address] [place] [address] Medical Records Request Social History [...] on file 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 Inquiry if they have been received yet. Attempted to warm transfer to backline, no answer. Advised caller the office willreturn her call. Caller???s Call back #: [phone] Does message need to be routed? Yes-Action Needed documented in this encounter Plan of Treatment Not on file documented as of this encounter Visit Diagnoses Not on filedocumented in this encounter Care Teams Epic Ambulatory Analysts Relationship Specialty Start Date End Date Servando Torre MD [address] [facility] [address] [place] [address] PCP - General Family Medicine 06/19/22 Mariela Denton MD [address] [place] [address] Referring Physician Gastroenterology 06/19/22 Lexis Barroso OD [address] [place] [address] Dispatcher Tow Truck 09/19/22 documented as of this encounter
--- OUTSIDE RECORDS SUMMARY | 2024-08-18 11:04 | XMS_ITS | Encounter Summary ---
Author Organization [facility] Healthcare Address [address] [place] [address] Care Team Providers Care Rod Mill Tender Name Role Phone Servando Torre MD Primary Care Provider +1- [phone] Mariela Denton MD Unavailable +1 -[phone] Lexis Barroso OD Unavailable +1- [phone] Encounter Details Date Type Department Care Team (Latest Contact Info) Description 02/17/2023 5:44 PM CDT - 02/17/2023 11:59 PM CDT Hospital Encounter [facility]) [address] [place] [address] Discharge Disposition: Discharge to home or self [...] on file Legal Sex Female 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 ??There will be no report generated by a [facility] Radiologist. Narrative [facility] - 02/17/2023 5:44 PM CDT EXAMINATION: ??Images For Reference Purposes Only us Karl Turner MD PhD IMG CT PROCEDURES Final Re sult [facility] documented in this encounter Visit Diagnoses Not on filedocumented in this encounter Care Teams Rod Mill Tender Relationship Specialty Start Date End Date Servando Torre MD [facility] [address] PCP - General Family Medicine 06/19/22 Mariela Denton MD [facility] [address] [place] [address] Referring Physician Gastroenterology 06/19/22 Lexis Barroso OD [address] [place] [address] Completion Supervisor 09/19/22 documented as of this encounter
--- OUTSIDE RECORDS SUMMARY | 2024-08-18 11:04 | XMS_ITS | Encounter Summary ---
Author Organization [facility] Medical Group Address [address] [facility] [address] [place] [address] Care Team Providers Care Fisheries Biologist Name Role Phone Servando Torre MD Primary Care Provider +1- [phone] Mariela Denton MD Unavailable +1 -[phone] Lexis Barroso OD Unavailable +1- [phone] Reason for Visit * Reason Onset Date Comments Additional Services Or Orders 02/20/2023 Encounter Details Date Type Department Care Team (Late st Contact Info) Description 02/20/2023 Telephone [facility] Medical [facility] Primary Care at [address] [address] Servando Torre MD [address] [place] [address] [address] [place] [address] Additional Services Or Orders Social [...] on file Legal 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 Fax confirmation was successful * Telephone Encounter [...] Anna Marie is requesting urgent reply. Anna Mraie requesting to please fax Ultrasound on Liver order dated 02/07/23 to [phone] Caller???s Call back #: [phone] ext [phone] Does message need to be routed? Yes-Action Needed documented in this encounter Plan of Treatment Not on file documented as of this encounter Visit Diagnoses Not on filedocumented in this encounter Care Teams Fisheries Biologist Relationship Specialty Start Date End Date Servando Torre MD [address] [address] PCP - General Family Medicine 06/19/22 Mariela Denton MD [facility] [address] [place] [address] Referring Physician Gastroenterology 06/19/22 Lexis Barroso OD [address] [place] [address] Rehabilitation Technician 09/19/22 documented as of this encounter
--- OUTSIDE RECORDS SUMMARY | 2024-08-18 11:04 | XMS_ITS | Encounter Summary ---
Author Organization [facility] Address [address] [place] [address] Phone Care Team Providers Care Microfilm Processor Name Role Phone Servando Torre MD Primary Care Provider +1 [phone] Mariela Denton MD Unavailable +1 -[phone] Lexis Barroso OD Unavailable +1- [phone] Encounter Details Date Type Department Care Team (Late st Contact Info) Description 03/07/2023 Documentation [facility] Epilepsy [address] [facility] Advanced [facility] 6th [place] [address] [place] [address] Adria Burleson MD [address] [facility] [address] [place] [address] Social History Tobacco Use Types [...] on file Legal 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
--- OUTSIDE RECORDS SUMMARY | 2024-08-18 11:04 | XMS_ITS | Encounter Summary ---
Author Organization [facility] Healthcare Address [address] [place] [address] Care Team Providers Care Cumulative Effects Analyst Name Role Phone Servando Torre MD Primary Care Provider +1- [phone] Mariela Denton MD Unavailable +1 -[phone] Lexis Barroso OD Unavailable +1- [phone] Encounter Details Date Type Department Care Team (Latest Contact Info) Description 02/17/2023 5:44 PM CDT - 02/17/2023 11:59 PM CDT Hospital Encounter [facility] [address] [place] [address] Discharge Disposition: Discharge to home or self [...] on file Legal 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 ??There will be no report generated by a [facility] Radiologist. Narrative [facility] - 02/17/2023 5:44 PM CDT EXAMINATION: ??Images For Reference Purposes Only us Karl Turner MD PhD IMG XR PROCEDURES Final Re sult [facility] documented in this encounter Visit Diagnoses Not on filedocumented in this encounter Care Teams Cumulative Effects Analyst Relationship Specialty Start Date End Date Servando Torre MD [facility] [address] [place] [address] PCP - General Family Medicine 06/19/22 Mariela Denton MD [facility] [address] [place] [address] Referring Physician Gastroenterology 06/19/22 Lexis Barroso OD [address] [place] [address] Cashier 09/19/22 documented as of this encounter
--- OUTSIDE RECORDS SUMMARY | 2024-08-18 11:04 | XMS_ITS | Encounter Summary ---
Author Organization [facility] Address [address] [facility] [address] [place] [address] Care Team Providers Care Hvac Technician Residential Name Role Phone Servando Torre MD Primary Care Provider +1- [phone] Mariela Denton MD Unavailable +1 -[phone] Lexis Barroso OD Unavailable +1- [phone] Reason for Visit * Reason Onset Date Comments Medical Question/Miscellaneous 02/21/2023 Encounter Details Date Type Department Care Team (Late st Contact Info) Description 02/21/2023 Telephone [facility] Medical [facility] Primary Care at [address] [address] Servando Torre MD [address] [place] [address] [address] [place] [address] Medical Question/Miscellaneous Social History Tobacco [...] file Legal Sex 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 * Telephone Encounter - Mayra Winters - 02/21/2023 12:16 PM CDT Medical Question/Miscellaneous Caller???s Concern: [facility] calling to inform doctor that due to staffing they are unable to see this patient in 's zip code area Caller???s Call back #: [phone] Does message need to be routed? Yes-FYI Only documented in this encounter Plan of Treatment Not on file documented as of this encounter Visit Diagnoses Diagnosis Balance problem- Primary Abnormality of gait Multiple fractures of ribs associated with chest compression and cardiopulmonary resuscitation documented in this encounter Care Teams Hvac Technician Residential Relationship Specialty Start Date End Date Servando Torre MD 2 [facility] [address] [place] [address] PCP - General Family Medicine 06/19/22 Mariela Denton MD [address] [place] [address] Referring Physician Gastroenterology 06/19/22 Lexis Barroso OD [address] [place] [address] U.[place]. Representative 09/19/22 documented as of this encounter
--- OUTSIDE RECORDS SUMMARY | 2024-08-18 11:04 | XMS_ITS | Encounter Summary ---
Author Organization [facility] Address [address] [place] [address] Phone Care Team Providers Care Learning Disabilities Specialist Name Role Phone Servando Torre MD Primary Care Provider [phone] Mariela Denton MD Unavailable +1 -[phone] Lexis Barroso OD Unavailable +1- [phone] Reason for Referral * Consultation (Routine) - Closed Specialty Diagnoses / Procedures Referred By Angel braswell Referred To Contact Neurology Diagnoses Seizure (HCC) Adria Burleson MD 1 [place] [address] Phone: tel: fax: Kimberly Padilla MD 1 [place] [address] Phone: tel: fax:[phone] Referral ID Status Reason Start Date Expiration Date V isits Requested Visits Authorized [id number] Closed Specialty Services Required 03/03/2023 04/01/2024 1 1 Question Answer Please select the performing region: [facility] (All Locations) [[id number]] To provider: KIMBERLY PADILLA [[id number]] # of visits: 1 Reason for Visit * Consultation (Routine) - Closed Specialty Diagnoses / Procedures Referred By Angel t Referred To Contact Neurology Diagnoses Seizure (HCC) Marixa San, CONST[place] [address] [place] [address] Phone: tel: fax: [facility] Epilepsy [address] [facility] 6th [place] [address] [place] [address] Phone: tel: fax: Referral ID Status Reason Start Date Expiration Date V isits Requested Visits Authorized [id number] Closed Specialty Services Required 02/07/2023 03/08/2024 1 1 Encounter Details Date Type Department Care Team (Late st Contact Info) Description 02/24/2023 4:00 PM CDT Office Visit [facility] Epilepsy [address] [facility] 6th [place] [address] [place] [address] Adria Burleson MD [address] [facility] [address] [place] [address] Seizure (HCC) Social History Tobacco [...] on file Legal Sex Female 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
--- OUTSIDE RECORDS SUMMARY | 2024-08-18 11:04 | XMS_ITS | Encounter Summary ---
Author Organization [facility] Address [address] [facility] [address] [place] [address] Care Team Providers Care Credit Front Office Developer Name Role Phone Servando Torre MD Primary Care Provider [phone]- [phone] Mariela Denton MD Unavailable [phone] -[phone] Lexis Barroso OD Unavailable +1- [phone] Reason for Referral * Home Health (Routine) - Closed Specialty Diagnoses / Procedures Referred By Contac t Referred To Contact Home Health Services / Home Health and Hospice Diagnoses Seizure (HCC) Multiple fractures of ribs associated with chest compression and cardiopulmonary resuscitation Balance problem Servando Torre MD [address] [place] [address] Phone: tel: fax: [facility] Home Care Services [facility] [address] [place] [address] Referral ID Status Reason Start Date Expiration Date V isits Requested Visits Authorized [id number] Closed Specialty Services Required 02/20/2023 03/21/2024 1 [...] Description 02/20/2023 2:15 PM CDT Office Visit [facility] Primary Care at [address] [phone] Servando Torre MD [address] [place] [address] Seizure (HCC) (Primary Dx); Multiple fractures [...] file Legal Sex Female 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 You may receive a phone call, text, MYCHART message, or e-mail asking about your care today. We would love to hear your feedback on how EXCELLENT your care wastoday! Wishing you better health, always. Dr. Torre * Attachments The following attachments cannot be sent through Care Everywhere. * Acetaminophen/Codeine (By mouth) ([place]) * Concussion (AfterCare(R) Instructions(ER/ED)) ([place]) documented in this encounter Ordered Prescriptions Prescription [...] staying with her since she returned from [place]. She still having some rib pain from the fractures, but that is improved. Her breathing is much better than when she was at [place], she is not need any oxygen. She [...] tremors, seizures (no seizures since returned from [place]),syncope, facial asymmetry, speech difficulty, light- headedness and [...] on current clinical standards) Testing performed by: [facility], [address] [place] [address] Organism 02/12/2023 (CLINICALLY INSIGNIFICANT GROWTH Final eGFR [...] Will check on neurology EEG ordered for [facility] No report of seizure activity in [...] office note has been partially dictated using [employer] software, and as a result portions of the record may have been created with this software. Occasional wrong-word or 'fuflh-l-ntsf' substitutions may have occurred due to the [...] gait documented in this encounter Care Teams Credit Front Office Developer Relationship Specialty Start Date End Date Servando Torre MD [facility] [address] PCP - General Family Medicine 06/19/22 Mariela Denton MD [facility] [address] [place] [address] Referring Physician Gastroenterology 06/19/22 Lexis Barroso OD [address] [place] [address] Daytime Babysitter 09/19/22 documented as of this encounter
--- OUTSIDE RECORDS SUMMARY | 2024-08-18 11:04 | XMS_ITS | Encounter Summary ---
Author Organization [facility] Address [address] [facility] [address] [place] [address] Care Team Providers Care Electrolysis Investigator Name Role Phone Servando Torre MD Primary Care Provider [phone]- [phone] Mariela Denton MD Unavailable [phone] -[phone] Lexis Barroso OD Unavailable +1- [phone] Reason for Visit * Reason Onset Date Comments Medical Question/Miscellaneous 03/10/2023 Medical Records Request 03/10/2023 Encounter Details Date Type Department Care Team (Late st Contact Info) Description 03/10/2023 Telephone [facility] Primary Care at [address] [address] Servando Torre MD [address] [place] [address] [address] [place] [address] Medical Question/Miscellaneous ; Medical Records [...] on file 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 [facility] Date Needed: as soon as possible Delivery Method: Fax Fax number to use for return of records: [phone] Caller???s Callback #: [phone] Additional Comments/Concerns: n/a Does the message need to be routed? Yes-Action Needed * Telephone Encounter - Regina Toscano MA - 03/11/2023 10:12 AM CDT [facility] * Telephone Encounter - Dennis Dodge - 03/10/2023 4:15 PM CDT Medical Question/Miscellaneous Caller???s Concern: Avani with [facility] received demographic page and referral. There are no discipline orders such as nursing or therapy or visit note for the patient. Please fax. Caller???s Call back #: [phone] Does message need to be routed? Yes-Action Needed documented in this encounter Plan of Treatment Not on file documented as of this encounter Visit Diagnoses Not on filedocumented in this encounter Care Teams Electrolysis Investigator Relationship Specialty Start Date End Date Servando Torre MD [facility] [address] PCP - General Family Medicine 06/19/22 Mariela Denton MD [address] [place] [address] Referring Physician Gastroenterology 06/19/22 Leixs Barroso OD [address] [place] [address] Secondary School Principal 09/19/22 documented as of this encounter
--- OUTSIDE RECORDS SUMMARY | 2024-08-18 11:04 | XMS_ITS | Encounter Summary ---
Author Organization [facility] Healthcare Address [address] [place] [address] Care Team Providers Care Superintendent Recreation Name Role Phone Servando Torre MD Primary Care Provider [phone] Mariela Denton MD Unavailable +1 -[phone] Lexis Barroso OD Unavailable +1- [phone] Reason for Visit * MRI/CAT/PET Scan (Routine) - Closed Specialty Diagnoses / Procedures Referred By Contac t Referred To Contact Procedures Neuro MR Outside Reference Karl Turner MD PhD [address] [facility] [address] [place] [address] Phone: tel: fax: Referral ID Status Reason Start Date Expiration Date Visits Re quested Visits Authorized [id number] Closed 02/17/2023 03/18/2024 1 1 Encounter Details Date Type Department Care Team (Latest Contact Info) Description 02/17/2023 5:44 PM CDT - 02/17/2023 11:59 PM CDT Hospital Encounter [facility]) [address] [place] [address] Discharge Disposition: Discharge to home or [...] on file 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 ??There will be no report generated by a [facility] Radiologist. Narrative RAD_PACS_[facility] - 02/17/2023 5:44 PM CDT EXAMINATION: ??Images For Reference Purposes Only us Karl Turner MD PhD IMG MRI PROCEDURES Final R esult [facility] documented in this encounter Visit Diagnoses Not on filedocumented in this encounter Care Teams Superintendent Recreation Relationship Specialty Start Date End Date Servando Torre MD 2 [facility] [address] [place] [address] PCP - General Family Medicine 06/19/22 Mariela Denton MD [address] [place] [address] Referring Physician Gastroenterology 06/19/22 Lexis Barroso OD [address] [place] [address] Shop Steward 09/19/22 documented as of this encounter
--- OUTSIDE RECORDS SUMMARY | 2024-08-18 11:04 | XMS_ITS | Encounter Summary ---
Author Organization [facility] Address [address] [facility] [address] [place] [address] Care Team Providers Care Geotechnical Department Manager Name Role Phone Servando Torre MD Primary Care Provider [phone] [phone] Mariela Denton MD Unavailable +1 -[phone] Lexis Barroso OD Unavailable +1- [phone] Reason for Referral * Consultation (Routine) - Closed Specialty Diagnoses / Procedures Referred By Angel braswell Referred To Contact Cardiology Diagnoses Syncope, unspecified syncope type Marixa San NP [address] [place] [address] [address] [place] [address] Phone: tel: fax: [facility] Cardiology at [address] [place] [address] Phone: tel: fax: Referral ID Status Reason Start Date Expiration Date V isits Requested Visits Authorized [id number] Closed Specialty Services Required 03/06/2023 04/04/2024 1 1 Question Answer Please select the performing region: [facility] [142] Please select the performing department: [facility] [[id number]] # of visits: 1 Encounter Details Date Type Department Care Team (Late st Contact Info) Description 03/06/2023 Orders Only [facility] Primary Care at [address] [phone] Marixa San NP [address] [facility] [address] [place] [address] Syncope, unspecified syncope type (Primary Dx) Social [...] on file 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
--- OUTSIDE RECORDS SUMMARY | 2024-08-18 11:04 | XMS_ITS | Encounter Summary ---
Author Organization [facility] Group Address [address] [facility] [address] [place] [address] Care Team Providers Care Flake Miller Helper Name Role Phone Servando Torre MD Primary Care Provider +1- [phone] Mariela Denton MD Unavailable [phone] -[phone] Lexis Barroso OD Unavailable +1- [phone] Reason for Visit * Reason Onset Date Comments Additional Services Or Orders 03/13/2023 Encounter Details Date Type Department Care Team (Late st Contact Info) Description 03/13/2023 Telephone [facility] Medical [facility] Primary Care at [address] [address] Servando Torre MD [address] [place] [address] [address] [place] [address] Additional Services Or Orders Social [...] on file 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 Does message need to be routed? Yes-Action Needed documented in this encounter Plan of Treatment Not on file documented as of this encounter Visit Diagnoses Diagnosis Memory impairment- Primary Memory loss documented in this encounter Care Teams Flake Miller Helper Relationship Specialty Start Date End Date Servando Torre MD [address] [facility] [address] [place] [address] PCP - General Family Medicine 06/19/22 Mariela Denton MD [address] [place] [address] Referring Physician Gastroenterology 06/19/22 Lexis Barroso OD [address] [place] [address] Welder Repair 09/19/22 documented as of this encounter
--- OUTSIDE RECORDS SUMMARY | 2024-08-18 11:04 | XMS_ITS | Encounter Summary ---
Author Organization [facility] Group Address [address] [facility] [address] [place] [address] Care Team Providers Care Squaring Machine Operator Name Role Phone Servando Torre MD Primary Care Provider +1- [phone] Mariela Denton MD Unavailable +1 -[phone] Lexis Barroso OD Unavailable +1- [phone] Encounter Details Date Type Department Care Team (Late st Contact Info) Description 02/21/2023 Orders Only [facility] Medical [facility] Primary Care at [place] [address] [place] [address] Marixa San NP [address] [facility] 130 [place] [address] Liver nodule Social History Tobacco [...] on file 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 Gender Identity Female 04/05/2022 6:17 PM [...] Modality Abdomen N/A Ultrasound us Marixa San CUSTOMS EXAMINER IMG US PROCEDURES Final Result documented in this encounter Visit Diagnoses Diagnosis Liver nodule Other specified disorders of liver documented in this encounter Care Teams Squaring Machine Operator Relationship Specialty Start Date End Date Servando Torre MD [address] [facility] [address] [place] [address] PCP - General Family Medicine 06/19/22 Mariela Denton MD [address] [facility] [address] [place] [address] Referring Physician Gastroenterology 06/19/22 Lexis Barroso OD [address] [place] [address] Library Associate 09/19/22 documented as of this encounter
--- OUTSIDE RECORDS SUMMARY | 2024-08-18 11:04 | XMS_ITS | Encounter Summary ---
Author Organization [facility] Healthcare Address [address] [place] [address] Care Team Providers Care Mud Trucker Name Role Phone Servando Torre MD Primary Care Provider [phone] Mariela Denton MD Unavailable +1 -[phone] Lexis Barroso OD Unavailable +1- [phone] Reason for Visit * MRI/CAT/PET Scan (Routine) - Closed Specialty Diagnoses / Procedures Referred By Contac t Referred To Contact Procedures Neuro CT Outside Reference Karl Turner MD PhD [address] [facility] [address] [place] [address] Phone: tel: fax: Referral ID Status Reason Start Date Expiration Date Visits Re quested Visits Authorized [id number] Closed 02/17/2023 03/18/2024 1 1 Encounter Details Date Type Department Care Team (Latest Contact Info) Description 02/17/2023 5:44 PM CDT - 02/17/2023 11:59 PM CDT Hospital Encounter [facility]) [address] [place] [address] Discharge Disposition: Discharge to home or [...] on file 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 ??There will be no report generated by a [facility] Radiologist. Narrative [facility]_P[facility] - 02/17/2023 5:44 PM CDT EXAMINATION: ??Images For Reference Purposes Only us Karl Turner MD PhD IMG CT PROCEDURES Final Re sult [facility] documented in this encounter Visit Diagnoses Not on filedocumented in this encounter Care Teams Mud Trucker Relationship Specialty Start Date End Date Servando Torre MD [address] [facility] [address] [place] [address] PCP - General Family Medicine 06/19/22 Mariela Denton MD [address] [place] [address] Referring Physician Gastroenterology 06/19/22 Lexis Barroso OD [address], [place] [address] Side Trimmer 09/19/22 documented as of this encounter
--- OUTSIDE RECORDS SUMMARY | 2024-08-18 11:05 | XMS_ITS | Encounter Summary ---
Author Organization [facility] Healthcare Address [address] [place] [address] Care Team Providers Care Airplane Pilot Crop Dusting Name Role Phone Servando Torre MD Primary Care Provider [phone] Mariela Denton MD Unavailable [phone] [phone] Lexis Barroso OD Unavailable +1- [phone] Reason for Visit * MRI/CAT/PET Scan (Routine) - Closed Specialty Diagnoses / Procedures Referred By Contac t Referred To Contact Procedures Neuro CT Outside Reference Karl Turner MD PhD [address] [facility] [address] [place] [address] Phone: tel: fax: Referral ID Status Reason Start Date Expiration Date Visits Re quested Visits Authorized [id number] Closed 02/17/2023 03/18/2024 1 1 Encounter Details Date Type Department Care Team (Latest Contact Info) Description 02/17/2023 5:44 PM CDT - 02/17/2023 11:59 PM CDT Hospital Encounter [facility]iology [facility]) [address] [place] [address] Discharge Disposition: Discharge to home or [...] on file 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 ??There will be no report generated by a [facility] Radiologist. Narrative RAD_PACS[facility] - 02/17/2023 5:44 PM CDT EXAMINATION: ??Images For Reference Purposes Only us Karl Turner MD PhD IMG CT PROCEDURES Final Re sult [facility] documented in this encounter Visit Diagnoses Not on filedocumented in this encounter Care Teams Airplane Pilot Crop Dusting Relationship Specialty Start Date End Date Servando Torre MD 2 [facility] [address] [place] [address] PCP - General Family Medicine 06/19/22 Mariela Denton MD [address] [place] [address] Referring Physician Gastroenterology 06/19/22 Lexis Barroso OD [address], [place] [address] Gardening Supervisor 09/19/22 documented as of this encounter
--- OUTSIDE RECORDS SUMMARY | 2024-08-18 11:05 | XMS_ITS | Encounter Summary ---
Author Organization [facility] Healthcare Address [address] [place] [address] Care Team Providers Care Milieu Technician Name Role Phone Servando Torre MD Primary Care Provider [phone] Mariela Denton MD Unavailable +1 -[phone] Lexis Barroso OD Unavailable +1- [phone] Reason for Visit * MRI/CAT/PET Scan (Routine) - Closed Specialty Diagnoses / Procedures Referred By Contac t Referred To Contact Procedures Neuro CT Outside Reference Karl Turner MD PhD [address] [facility] [address] [place] [address] Phone: tel: fax: Referral ID Status Reason Start Date Expiration Date Visits Re quested Visits Authorized [id number] Closed 02/17/2023 03/18/2024 1 1 Encounter Details Date Type Department Care Team (Latest Contact Info) Description 02/17/2023 5:44 PM CDT - 02/17/2023 11:59 PM CDT Hospital Encounter [facility]) [address] [place] [address] Discharge Disposition: Discharge to home or [...] on file Legal 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 ??There will be no report generated by a [facility] Radiologist. Narrative RAD_PACS_[facility] - 02/17/2023 5:44 PM CDT EXAMINATION: ??Images For Reference Purposes Only us Karl Turner MD PhD IMG CT PROCEDURES Final Re sult RAD_PACS_[facility] documented in this encounter Visit Diagnoses Not on filedocumented in this encounter Care Teams Milieu Technician Relationship Specialty Start Date End Date Servando Torre MD 2 [facility] [address] [place] [address] PCP - General Family Medicine 06/19/22 Mariela Denton MD [address] [place] [address] Referring Physician Gastroenterology 06/19/22 Lexis Barroso OD [address], [place] [address] Pharmacy Delivery Driver 09/19/22 documented as of this encounter
--- OUTSIDE RECORDS SUMMARY | 2024-08-18 11:05 | XMS_ITS | Encounter Summary ---
Author Organization [facility] Healthcare Address [address] [place] [address] Care Team Providers Care Director Business Travel Name Role Phone Servando Torre MD Primary Care Provider +1- [phone] Mariela Denton MD Unavailable +1 -[phone] Lexis Barroso OD Unavailable +1- [phone] Encounter Details Date Type Department Care Team (Latest Contact Info) Description 02/17/2023 5:44 PM CDT - 02/17/2023 11:59 PM CDT Hospital Encounter [facility]) [address] [place] [address] Discharge Disposition: Discharge to home or self [...] on file 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 ??There will be no report generated by a [facility] Radiologist. Narrative RAD_PACS_[facility]J - 02/17/2023 5:44 PM CDT EXAMINATION: ??Images For Reference Purposes Only us Karl Turner MD PhD IMG XR PROCEDURES Final Re sult [facility] documented in this encounter Visit Diagnoses Not on filedocumented in this encounter Care Teams Director Business Travel Relationship Specialty Start Date End Date Servando Torre MD [facility] [address] [place] [address] PCP - General Family Medicine 06/19/22 Mariela Denton MD [facility] [address] [place] [address] Referring Physician Gastroenterology 06/19/22 Lexis Barroso OD [address] [place] [address] Wire Drawing Setter 09/19/22 documented as of this encounter
--- OUTSIDE RECORDS SUMMARY | 2024-08-18 11:05 | XMS_ITS | Encounter Summary ---
Author Organization [facility] Address [address] [facility] [address] [place] [address] Care Team Providers Care Registered Private Duty Nurse Name Role Phone Servando Torre MD Primary Care Provider +1- [phone] Mariela Denton MD Unavailable +1 -[phone] Lexis Barroso OD Unavailable +1- [phone] Encounter Details Date Type Department Care Team (Late st Contact Info) Description 02/14/2023 Telephone [facility] Primary Care at [place] [address] [place] [address] Servando Torre MD [address] [place] [address] [address] [place] [address] Social History Tobacco Use Types [...] on file Legal Sex Female 9:[address] Gender Identity Female 04/05/2022 6:17 PM CDT [...] MA - 02/14/2023 5:55 PM CDT P: [phone] option 2,1,2. Pt's daughter notified. * Telephone Encounter - David Everett - 02/14/2023 3:12 PM CDT Pt daughter called and is needing phone number for neurology documented in this encounter Plan of Treatment Not on file documented as of this encounter Visit Diagnoses Not on filedocumented in this encounter Care Teams Registered Private Duty Nurse Relationship Specialty Start Date End Date Servando Torre MD [facility] [address] PCP - General Family Medicine 06/19/22 Mariela Denton MD [address] [place] [address] Referring Physician Gastroenterology 06/19/22 Lexis Barroso OD [address] [place] [address] Application Design Engineer 09/19/22 documented as of this encounter
--- OUTSIDE RECORDS SUMMARY | 2024-08-18 11:05 | XMS_ITS | Encounter Summary ---
Author Organization [facility] Healthcare Address [address] [place] [address] Care Team Providers Care Php Developer Name Role Phone Servando Torre MD Primary Care Provider +1- [phone] Mariela Denton MD Unavailable +1 -[phone] Lexis Barroso OD Unavailable +1- [phone] Reason for Visit * Reason Comments Blurred Vision Fatigue Encounter Details Date Type Department Care Team (Late st Contact Info) Description 02/12/2023 7:50 PM CDT - 02/12/2023 9:51 PM CDT Emergency [facility] Emergency Department [address] [place] [address] Juve Trejo MD [address] [address] Weakness (Primary Dx); Confusion Discharge Disposition: Discharge [...] on file 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 * Confusion (Thai) documented in this encounter Medications at Time [...] days. Patient states that she was in [place] about 9600 ft while she was sitting [...] seizure due to high altitude levels in [place]. Pt had CPR and now has broken [...] seizure due to high altitude levels in [place]. ? TECHNIQUE: Axial images acquired through the [...] PM T: ??02/12/2023 9:05 PM Report ID: [id number] Reading Location: ??[id number] Procedure Note Teofilo Sunshine MD - 02/12/2023 EXAM DESCRIPTION: CT HEAD WO CONTRAST REASON FOR STUDY: Mental status change, unknown cause c/o increased fatigue, confusion and blurry vision x 3 days. Per family,on 01/30 pt had what is believed to be a seizure due to high altitude levels in [place]. TECHNIQUE: Axial images acquired through the brain [...] Sunshine M.D., D.O. MW: JEOVANNY Report ID: [id number] Reading Location: [id number] Juve Trejo MD IMG CT PROCEDURES Final Result * Urine culture Urine (02/12/2023 7:10 PM CDT) Report Final Report: Less than 100,000 colonies/mL (clinically insignificant growth based on current clinical standards) AILEEN RODRIGUEZ ([place]) Comment:Testing performed by : [facility], [address] [facility] [place]., [address] Organism (CLINICALLY INSIGNIFICANT GROWTH AILEEN RODRIGUEZ ([place]) Urine 02/12/2023 7:10 PM CDT 02/12/2023 10:23 PM CDT Narrative AILEEN RODRIGUEZ ([place]) - 02/14/2023 7:37 AM CDT Urine culture reflexed based upon urinalysis results. Testing performed by [facility] Microbiology Laboratory ([phone]) us Juve Trejo MD LAB MICROBIOLOGY - GENERAL ORD ERABLES Final Result Performing Organization Address [facility]/ZIP Co de Phone Number AILEEN RODRIGUEZ ([place]) 1 [facility] [address] [address] * (ABNORMAL) Urinalysis, microscopic only (02/12/2023 7:10 [...] ORDERABLES Final Res ult Performing Organization Address City/[facility]/ZIP Co de Phone Number AILEEN RODRIGUEZ ([place]) 1 [facility] [address] [address] * (ABNORMAL) Urinalysis reflex to microscopic and culture Urine (02/12/2023 7:10 PM CDT) Color, ur Yellow Yellow [facility] ([place]) Clarity, ur Clear Clear [facility] ([place]) Specific gravity, ur 1.012 1.003 - 1.030 [facility] ([place]) pH, urine 5.0 [facility]ER [facility] ([place]) Protein, ur ql Negative Negative [facility] ([place]) Glucose, ur ql Negative Negative [facility] ([place]) Ketones, ur Negative Negative [facility]ER A ([place]) Bilirubin, ur Negative Negative [facility] ([place]) Blood, ur Negative Negative [facility] ([place]) Urobilinogen, ur <2.0 <2.0 mg/dL [facility] ([place]) Nitrite, ur Negative Negative [facility]ER A ([place]) Leukocyte esterase, ur 3+(A) Negative [facility] ([place]) UA reflex comment Reflex to microscopic UA will be performed. AILEEN [facility] ([place]) Urine 02/12/2023 7:10 PM CDT 02/12/2023 7:12 PM CDT Narrative [facility] ([place]) - 02/12/2023 7:17 PM CDT ?? Urine pH is affected by diet, medications, systemic acid-base disturbances, and renal tubular function. ??pH may affect urinary stone formation. ??For example, urine pH below 6.0 may help reduce the tendency for calcium phosphate stones and pH greater than 6.0 may reduce the tendency for uric acid stone formation. Source: [facility] [employer]. Last revised 08-07-2017 us Juve Trejo MD LAB MICROBIOLOGY - GENERAL ORD ERABLES Final Result AILEEN [facility] ([place]) 1 [facility] Department [place] [address] * eGFR (02/12/2023 7:00 PM CDT) eGFR 56 mL/min/1. 73 m2 AILEEN [facility] ([place]) Comment: Interpretive Data Reference [...] data was last reviewed 2021. Blood 02/12/2023 7:00 PM CDT 02/12/2023 7:05 PM CDT us Juve Trejo MD LAB BLOOD ORDERABLES Final Res ult AILEEN [facility] ([place]) 1 [facility] [place] [address] * Differential, auto (02/12/2023 7:00 [...] Neutrophil pct 67.7 % [facility] R [facility] ([place]) Comment: Interpretive Data Percent cell count reference [...] ult [facility] ([place]) 1 [facility] Department of Laboratories [place], [place] [id number] * Comprehensive metabolic panel (02/12/2023 7:00 PM [...] ult [facility] ([place]) 1 [facility] Department of Laboratories [place], [place] [address] * (ABNORMAL) CBC with auto differential (02/12/2023 [...] ult [facility] ([place]) 1 [facility] Department [place] [address] documented in this encounter Visit Diagnoses Diagnosis Weakness- Primary Other malaise and fatigue Confusion Unspecified psychosis documented in this encounter Care Teams Php Developer Relationship Specialty Start Date End Date Servando Torre MD [address] [place] [address] PCP - General Family Medicine 06/19/22 Mariela Denton MD [address] [place] [address] Referring Physician Gastroenterology 06/19/22 Lexis Barroso OD [address] [place] [address] Customer Service Sales Associate 09/19/22 documented as of this encounter
--- OUTSIDE RECORDS SUMMARY | 2024-08-18 11:05 | XMS_ITS | Encounter Summary ---
Author Organization [facility] Address [address] [place] [address] Phone Care Team Providers Care Construction Contractor Name Role Phone Servando Torre MD Primary Care Provider Mariela Denton MD Unavailable +1 -[phone] Lexis Barroso OD Unavailable +1- [phone] Encounter Details Date Type Department Care Team (Late st Contact Info) Description 02/17/2023 Telephone [facility] General Neurology [address] 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
--- OUTSIDE RECORDS SUMMARY | 2024-08-18 11:05 | XMS_ITS | Encounter Summary ---
Author Organization [facility] Healthcare Address [address] [place] [address] Care Team Providers Care Corporate Wellness Coordinator Name Role Phone Servando Torre MD Primary Care Provider +1- [phone] Mariela Denton MD Unavailable +1 -[phone] Lexis Barroso OD Unavailable +1- [phone] Encounter Details Date Type Department Care Team (Latest Contact Info) Description 02/17/2023 5:44 PM CDT - 02/17/2023 11:59 PM CDT Hospital Encounter [facility]) [address] [place] [address] Discharge Disposition: Discharge to home or self [...] on file Legal Sex Female 9:30 AM FLEXIBLE BABYSITTER Gender Identity Female 04/05/2022 6:17 PM CDT [...] and have not been reviewed by [facility]. ??There will be no report generated by a [facility] Radiologist. Narrative RAD_PACS_[facility]J - 02/17/2023 5:44 PM CDT EXAMINATION: ??Images For Reference Purposes Only us Karl Turner MD PhD IMG CT PROCEDURES Final Re sult [facility] documented in this encounter Visit Diagnoses Not on filedocumented in this encounter Care Teams Corporate Wellness Coordinator Relationship Specialty Start Date End Date Servando Torre MD [facility] [address] [address] PCP - General Family Medicine 06/19/[address] [facility] [address] [place] [address] Referring Physician Gastroenterology 06/19/22 Lexis Barroso OD [address] [place] [address] Leather Products Supervisor 09/19/22 documented as of this encounter
--- OUTSIDE RECORDS SUMMARY | 2024-08-18 11:05 | XMS_ITS | Encounter Summary ---
Author Organization [facility] Healthcare Address [address] [place] [address] Care Team Providers Care Radio Interference Investigator Name Role Phone Servando Torre MD Primary Care Provider [phone] Mariela Denton MD Unavailable [phone] -[phone] Lexis Barroso OD Unavailable +1- [phone] Reason for Visit * MRI/CAT/PET Scan (Routine) - Closed Specialty Diagnoses / Procedures Referred By Contac t Referred To Contact Procedures Neuro CT Outside Reference Karl Turner MD PhD [address] [facility] [address] [place] [address] Phone: tel: fax: Referral ID Status Reason Start Date Expiration Date Visits Re quested Visits Authorized [id number] Closed 02/17/2023 03/18/2024 1 1 Encounter Details Date Type Department Care Team (Latest Contact Info) Description 02/17/2023 5:44 PM CDT - 02/17/2023 11:59 PM CDT Hospital Encounter [facility]) [address] [place] [address] Discharge Disposition: Discharge to home or [...] file Legal Sex Female 9:30 AM RN PEDIATRIC Gender Identity Female 04/05/2022 6:17 PM CDT [...] filedocumented in this encounter Care Teams Radio Interference Investigator Relationship Specialty Start Date End Date Servando Torre MD 2 [facility] [address] [place] [address] PCP - General Family Medicine 06/19/22 Mariela Denton MD [address] [place] [address] Referring Physician Gastroenterology 06/19/22 Lexis Barroso OD [address], [place] [address] Asphalt Tar [employer] Gravel Roofer 09/19/22 documented as of this encounter
--- OUTSIDE RECORDS SUMMARY | 2024-08-18 11:06 | XMS_ITS | Encounter Summary ---
Author Organization [facility] Address [address] [place] [address] Phone Care Team Providers Care Hand I Thermal Cutter Name Role Phone Servando Torre MD Primary Care Provider +1 [phone] Mariela Denton MD Unavailable +1 -[phone] Lexis Barroso OD Unavailable +1- [phone] Encounter Details Date Type Department Care Team [...] Legal Sex Female 9:30 AM DOCTOR OF PHARMACY Gender Identity Female 04/05/2022 6:17 PM CDT [...] filedocumented in this encounter Care Teams Hand I Thermal Cutter Relationship Specialty Start Date End Date Servando Torre MD [address] [facility] [address] [place] [address] PCP - General Family Medicine 06/19/22 Mariela Denton MD [address] [place] [address] Referring Physician Gastroenterology 06/19/22 Lexis Barroso OD [address] [place] [address] Irrigator Overhead 09/19/22 documented as of this encounter
--- OUTSIDE RECORDS SUMMARY | 2024-08-18 11:06 | XMS_ITS | Encounter Summary ---
Author Organization [facility] Address [address] [facility] [address] [place] [address] Care Team Providers Care Science Job Titles Name Role Phone Servando Torre MD Primary Care Provider +1- [phone] Mariela Denton MD Unavailable +1 -[phone] Lexis Barroso OD Unavailable +1- [phone] Encounter Details Date Type Department Care Team (Late st Contact Info) Description 02/04/2023 Telephone [facility] Primary Care at [place] [address] [place] [address] Servando Torre MD [address] [place] [address] [address] [place] [address] Social History Tobacco Use Types [...] file Legal Sex Female 9:30 AM SOFTWARE APPLICATION TESTER Gender Identity Female 04/05/2022 6:17 PM CDT Sexual Orientation Straight 04/05/2022 6: 17 PM CDT documented as of this encounter Plan of Treatment Not on file documented as of this encounter Visit Diagnoses Not on filedocumented in this encounter Care Teams Science Job Titles Relationship Specialty Start Date End Date Servando Torre MD [address] [facility] [address] [place] [address] PCP - General Family Medicine 06/19/22 Mariela Denton MD [address] [place] [address] Referring Physician Gastroenterology 06/19/22 Lexis Barroso OD [address] [place] [address] Patient Support Tech 09/19/22 documented as of this encounter
--- OUTSIDE RECORDS SUMMARY | 2024-08-18 11:06 | XMS_ITS | Encounter Summary ---
Author Organization [facility] Address [address] [place] [address] Phone Care Team Providers Care Certified Surgical Technician Name Role Phone Servando Torre MD Primary Care Provider +1 [phone] Mariela Denton MD Unavailable +1 -[phone] Lexis Barroso OD Unavailable +1- [phone] Encounter Details Date Type Department Care Team (Late st Contact Info) Description 11/07/2022 Orders Only [facility] Gastroenterology [address] [facility] 12th [place] [address] [place] [address] [facility] current use of systemic steroids (Primary [...] file Legal Sex Female 9:30 AM CABLE MAKER Gender Identity Female 04/05/2022 6:17 PM CDT Sexual Orientation Straight 04/05/2022 6: 17 PM CDT documented as of this encounter Plan of Treatment Not on file documented as of this encounter Visit Diagnoses Diagnosis group home current use of systemic steroids- Primary Arthralgia of hip, unspecified laterality Ulcerative colitis with complication, unspecified location (HCC) documented in this encounter Care Teams Certified Surgical Technician Relationship Specialty Start Date End Date Servando Torre MD [address] [address] PCP - General Family Medicine 06/19/22 Mariela Dneton MD [address] [place] [address] Referring Physician Gastroenterology 06/19/22 Lexis Barroso OD [address] [place] [address] Sail Maker 09/19/22 documented as of this encounter
--- OUTSIDE RECORDS SUMMARY | 2024-08-18 11:06 | XMS_ITS | Encounter Summary ---
Author Organization [facility] Healthcare Address [address] [place] [address] Care Team Providers Care Therapeutic Recreation Specialist Name Role Phone Servando Torre MD Primary Care Provider +1- [phone] Mariela Denton MD Unavailable +1 -[phone] Lexis Barroso OD Unavailable +- [phone] Reason for Visit * Auth/Cert (Routine) Specialty Diagnoses / Procedures Referred By Contac t Referred To Contact Diagnoses Chronic ulcerative colitis with complication, unspecified location (HCC) Chronic ulcerative colitis with complication, unspecified location (HCC) [K51.919] Procedures WI COLONOSCOPY FLX DX W/COLLJ SPEC WHEN PFRMD WI COLONOSCOPY W/BIOPSY SINGLE/MULTIPLE COLONOSCOPY Referral ID Status Reason Start Date Expiration Date Visits Re quested Visits Authorized [id number] 1 1 Encounter Details Date Type Department Care Team (Late st Contact Info) Description 11/29/2022 10:21 AM CDT Anesthesia Event [facility] Endoscopy [address] [place] [address] Aubrey Joyner MD [address] [facility] [address] [place] [address] Anesthesia Record Procedure Summary Procedure [...] on file Legal Sex Female 9:30 AM DISPOSAL WORKER Gender Identity Female 04/05/2022 6:17 PM CDT Sexual Orientation Straight 04/05/2022 6: 17 PM CDT documented as of this encounter OR Notes * Anesthesia Postprocedure Evaluation - Aubrey Joyner MD - 11/29/2022 11:45 AM CDT Patient: Lisa Allen Procedure Summary Date: 11/29/22 Room / Location: [facility] ENDOSCOPY ROOM [facility] ENDOSCOPY Anesthesia Start: 1021 Anesthesia Stop: 1046 [...] check glucose with glucose monitor and strip Mobile365 (fka InphoMatch)ToDTVCast Ultra Test strip -- 08/16/22 -- Servando [...] Medication protocol when under care of a DRUG ABUSE WORKER Planned anesthesia: General Informed Consent: Anesthesia plan and risks discussed with patient. Plan and Consent Comments: Adv age, FRAIL; [place] Consent and Attending signature: I and/or my [...] mL/hr documented in this encounter Care Teams Therapeutic Recreation Specialist Relationship Specialty Start Date End Date Servando Torre MD [address] [facility] [address] [place] [address] PCP - General Family Medicine 06/19/22 Mariela Denton MD [address] [place] [address] Referring Physician Gastroenterology 06/19/22 Lexis Barroso OD [address] [place] [address] Mud Engineer 09/19/22 documented as of this encounter
--- OUTSIDE RECORDS SUMMARY | 2024-08-18 11:06 | XMS_ITS | Encounter Summary ---
Author Organization [facility] Healthcare Address [address] [place] [address] Care Team Providers Care General Assembler Installer Name Role Phone Servando Torre MD Primary Care Provider +1- [phone] Mariela Denton MD Unavailable +1 -[phone] Lexis Barroso OD Unavailable +- [phone] Reason for Visit * Auth/Cert (Routine) Specialty Diagnoses / Procedures Referred By Contac t Referred To Contact Diagnoses Chronic ulcerative colitis with complication, unspecified location (HCC) Chronic ulcerative colitis with complication, unspecified location (HCC) [K51.919] Procedures WI COLONOSCOPY FLX DX W/COLLJ SPEC WHEN PFRMD WI COLONOSCOPY W/BIOPSY SINGLE/MULTIPLE COLONOSCOPY Referral ID Status Reason Start Date Expiration Date Visits Re quested Visits Authorized [id number] 1 1 Encounter Details Date Type Department Care Team (Late st Contact Info) Description 11/29/2022 9:07 AM CDT - 11/29/2022 11:27 AM CDT Hospital Encounter [facility] Endoscopy [address] [address] Mariela Denton MD [address] [place] [address] Discharge Disposition: Discharge to home or self [...] file Legal Sex Female 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 You may eat and drink at . [...] your physician. Pain/Bleeding: You have had {POST BIOPSY/DILITATION:38858971} performed during the procedure. You may expect a little bleeding from the site. Within the next 48 hours, if the bleeding becomes excessive or is accompanied by abdominal or chest pain, please call your physician immediately. If you are on aspirin or NSAIDS (non-steroidal anti-inflammatory drugs) then you can resume in {Endo ASA/NSAIDS:40230034}. If no follow-up appointment is required, you [...] Female Attending MD: Mariela Denton M.D. Room: [facility] ENDOSCOPY ROOM 01 Note Status: Finalized Procedure: [...] scope was passed under direct vision. The [id number] was introduced through the anus and advanced [...] hours - Please call the Nurse Coordinator: [phone] After hours, evening, nights, weekends and holidays - Please call the hospital stringing machine operator at and ask for the GI fellow bottom ironer. Electronically signed by Mariela Denton M.D. Mariela Denton M.D. 11/29/2022 10:54:08 AM Number of Addenda: 0 Note Initiated On: 11/29/2022 10:18 AM documented in this encounter Miscellaneous Notes * Perioperative Nursing Note - Gay Jasso RN - 11/29/2022 10:50 AM CDT discussed findings. Discharge instructions given to patient, (and by phone - directed to bean picker machine operator location).Understanding expressed, questions answered.(No signatures due to CoVid19 protocol) Tolerating po fluids. * Pre-Procedure Instructions - Riri Bro RN - 11/28/2022 12:38 PM CDT Please follow all instruction you were given regarding your bowel prep. When you arrive come to [facility] Hospital entrance. As you enter there [...] non-medical transport)by yourself will be allowed Your recycler forklift driver truck driver must be at least 18 y/o If your recycler forklift driver truck driver chooses not to come in to the building or will be picking you up after your procedure-we will call your recycler forklift driver truck driver to confirm your ride home prior to the procedure start time Masking at [facility] is now optional. You may bring a mask and masks are available at hospital entrance. We respect personal choice of anyone who chooses to mask. Be assured employees are ready to mask upon request when providing care. My number is [phone] documented in this encounter Plan of Treatment [...] Female Attending MD: Mariela Denton M.D. Room: [facility] ENDOSCOPY ROOM 01 Note Status: Finalized Procedure: [...] The scope was passed under direct vision.The [id number] was introduced through the anusand advanced to [...] business hours - Please call theNurse Coordinator: [phone] After hours, evening, nights, weekends and holidays- Please call the hospital stringing machine operator at and ask for the GI fellow bottom ironer. Electronically signed by Mariela Denton M.D. Mariela Denton M.D. 11/29/2022 10:54:08 AM Number of Addenda: 0 Note Initiated On: 11/29/2022 10:18 AM us Mariela Denton MD ENDOSCOPY PROCEDURE S Final Result * POCT glucose (11/29/2022 9:46 AM CDT) [facility] Glucose, POC 166 70 - 199 mg/dL AILEEN ROSAS Comment: Interpretive Data Glucose is assumed to be non-fasting. Fasting Glucose reference ranges are: 0 - 150 years: ??70 mg/dL - 99 mg/dL Current interpretive data was last revised on 2014. POC Performer [id number] AILEEN ROSAS POC Device Number [id number] AILEEN ROSAS Blood 11/29/2022 9:46 AM CDT 11/29/2022 9:46 AM CDT Mariela Denton MD LAB POCT ORDERABLES - DEVICE Final Result AILEEN [facility]RAIGW[facility] [address] [facility]. Department of [place] [address] documented in this encounter Visit [...] 11/29/2022 documented in this encounter Care Teams General Assembler Installer Relationship Specialty Start Date End Date Servando Torre MD [facility] [address] PCP - General Family Medicine 06/19/22 Mariela Denton MD [address] [place] [address] Referring Physician Gastroenterology 06/19/22 Lexis Barroso OD [address] [place] [address] Hot Bread Baker 09/19/22 documented as of this encounter
--- OUTSIDE RECORDS SUMMARY | 2024-08-18 11:06 | XMS_ITS | Encounter Summary ---
Author Organization [facility] Healthcare Address [address] [place] [address] Care Team Providers Care Shuttle Bus Driver Name Role Phone Servando Torre MD Primary Care Provider +1- [phone] Mariela Denton MD Unavailable +1 -[phone] Lexis Barroso OD Unavailable +- [phone] Reason for Visit * Auth/Cert (Routine) Specialty Diagnoses / Procedures Referred By Contac t Referred To Contact Diagnoses Chronic ulcerative colitis with complication, unspecified location (HCC) Chronic ulcerative colitis with complication, unspecified location (HCC) [K51.919] Procedures IN COLONOSCOPY FLX DX W/COLLJ SPEC WHEN PFRMD IN COLONOSCOPY W/BIOPSY SINGLE/MULTIPLE COLONOSCOPY Referral ID Status Reason Start Date Expiration Date Visits Re quested Visits Authorized [id number] 1 1 Encounter Details Date Type Department Care Team (Late st Contact Info) Description 11/29/2022 10:30 AM CDT - 11/29/2022 11:00 AM CDT Surgery [facility] Endoscopy [address] [address] Mariela Denton MD [address] [facility] [address] [place] [address] COLONOSCOPY Surgery Details Date/Time Status Location OR Service Patient Class Case Class Case Type Trauma Case? 11/29/2022 10:30 AM Posted [facility] ENDOSCOPY Endo 01 Gastroenterology Outpatient Elective Panel [...] on file Legal Sex Female 9:30 AM PHYSICAL THERAPIST CLINIC DIRECTOR Gender Identity Female 04/05/2022 6:17 PM [...] Diet: Type of diet ordered {GI diet instructions:88704694}. You may eat and drink at . [...] your physician. Pain/Bleeding: You have had {POST BIOPSY/DILITATION:20974733} performed during the procedure. You may expect a little bleeding from the site. Within the next 48 hours, if the bleeding becomes excessive or is accompanied by abdominal or chest pain, please call your physician immediately. If you are on aspirin or NSAIDS (non-steroidal anti-inflammatory drugs) then you can resume in {Endo ASA/NSAIDS:44173768}. If no follow-up appointment is required, you [...] by mouth daily with breakfast 10/10/22 Servando Trore MD Lactobacillus acidophilus (PROBIOTIC ORAL) Take by [...] Female Attending MD: Mariela Denton M.D. Room: [facility] ENDOSCOPY ROOM 01 Note Status: Finalized [...] scope was passed under direct vision. The [id number] was introduced through the anus and advanced [...] hours - Please call the Nurse Coordinator: [phone] After hours, evening, nights, weekends and holidays - Please call the hospital forging 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 at and ask for the GI fellow continuous process coffee roaster. Electronically signed by Mariela Denton M.D. Mariela Denton M.D. 11/29/2022 10:54:08 AM Number of Addenda: 0 Note Initiated On: 11/29/2022 10:18 AM documented in this encounter Miscellaneous Notes * Perioperative Nursing Note - Gay Jasso RN - 11/29/2022 10:50 AM CDT discussed findings. Discharge instructions given to patient, (and by phone - directed to mixing picker tender location).Understanding expressed, questions answered.(No signatures due to CoVid19 protocol) Tolerating po fluids. * Pre-Procedure Instructions - Riri Bro RN - 11/28/2022 12:38 PM CDT Please follow all instruction you were given regarding your bowel prep. When you arrive come to [facility] Hospital entrance. As you enter [...] non-medical transport)by yourself will be allowed Your corporate driver must be at least 18 y/o If your corporate driver chooses not to come in to the building or will be picking you up after your procedure-we will call your corporate driver to confirm your ride home prior to the procedure start time Masking at [facility] is now optional. You may bring a mask and masks are available at hospital entrance. We respect personal choice of anyone who chooses to mask. Be assured employees are ready to mask upon request when providing care. My number is [phone] documented in this encounter Plan of Treatment [...] Female Attending MD: Mariela Denton M.D. Room: [facility] ENDOSCOPY ROOM 01 Note Status: Finalized [...] The scope was passed under direct vision.The [id number] was introduced through the anusand advanced to [...] business hours - Please call theNurse Coordinator: [phone] After hours, evening, nights, weekends and holidays- Please call the hospital forging 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 at and ask for the GI fellow continuous process coffee roaster. Electronically signed by Mariela Denton M.D. Mariela Denton M.D. 11/29/2022 10:54:08 AM Number of Addenda: 0 Note Initiated On: 11/29/2022 10:18 AM Mariela Denton MD ENDOSCOPY PROCEDURE S Final Result * POCT glucose (11/29/2022 9:46 AM CDT) [facility] Signature Glucose, POC 166 70 - 199 mg/dL AILEEN ROSAS Comment: Interpretive Data Glucose is assumed to be non-fasting. Fasting Glucose reference ranges are: 0 - 150 years: ??70 mg/dL - 99 mg/dL Current interpretive data was last revised on 2014. POC Performer [id number] AILEEN ROSAS POC Device Number [id number] [facility] Blood 11/29/2022 9:46 AM CDT 11/29/2022 9:46 AM CDT Mariela Denton MD LAB POCT ORDERABLES - DEVICE Final Result AI[facility]EN [facility] [address] [facility] [place] [address] documented in this encounter Visit Diagnoses Diagnosis [...] 11/29/2022 documented in this encounter Care Teams Shuttle Bus Driver Relationship Specialty Start Date End Date Servando Torre MD [facility] [address] PCP - General Family Medicine 06/19/22 Mariela Denton MD [facility] [address] [place] [address] Referring Physician Gastroenterology 06/19/22 Lexis Barroso OD [address] [place] [address] Yard Driver 09/19/22 documented as of this encounter
--- OUTSIDE RECORDS SUMMARY | 2024-08-18 11:06 | XMS_ITS | Encounter Summary ---
Author Organization [facility] Address [address] [facility] [address] [place] [address] Care Team Providers Care Fisher Swordfish Name Role Phone Servando Torre MD Primary Care Provider +1- [phone] Mariela Denton MD Unavailable +1 -[phone] Lexis Barroso OD Unavailable +1- [phone] Reason for Visit * Reason Onset Date Comments CHRISTELLE Questions 02/04/2023 Encounter Details Date Type Department Care Team (Late st Contact Info) Description 02/04/2023 Telephone [facility] Primary Care at [address] [address] Servando Torre MD [address] [place] [address] [address] [place] [address] CHRISTELLE Questions (/) Social History [...] on file Legal Sex Female 9:30 AM SPINNER OPEN END Gender Identity Female 04/05/2022 6:17 PM CDT Sexual Orientation Straight 04/05/2022 6: 17 PM CDT documented as of this encounter Miscellaneous Notes * Telephone Encounter - Pamela Silveira - 02/04/2023 11:19 AM CDT CHRISTELLE Questions (Message from [facility]-Account Advisor): Has patient been discharged at time of call? Yes Date Admitted: 01/31 Date Discharged: 02/02 Facility Admitted To: [facility] Reason for Stay? Possible seizure due to [...] to the appointment? yes Caller???s Callback #: [phone] Additional Comments: Caller states that patient became unresponsive and her lips were turning blue.She administered CPR and broke 8 of her ribs. Does message need to be routed? No documented in this encounter Plan of Treatment Not on file documented as of this encounter Visit Diagnoses Not on filedocumented in this encounter Care Teams Fisher Swordfish Relationship Specialty Start Date End Date Servando Torre MD [address] [address] PCP - General Family Medicine 06/19/22 Mariela Denton MD [address] [place] [address] Referring Physician Gastroenterology 06/19/22 Lexis Barroso OD [address] [place] [address] Spinning Bath Person 09/19/22 documented as of this encounter
--- OUTSIDE RECORDS SUMMARY | 2024-08-18 11:06 | XMS_ITS | Encounter Summary ---
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 73 m2 AILEEN MATTHEW [...] CDT 02/07/2023 4:22 PM CDT Marixa San CAUSTICISER LAB BLOOD ORDERABLES Final Resul t [facility] [address] Department [place] [address] * Differential, auto (02/07/2023 10:42 AM CDT) Neutrophil abs 5.4 1.7 - 6.5 K/cumm [facility] Imm gran abs 0.1 0.0 - 0.1 K/cumm [facility] Lymphocyte abs 1.8 0.8 - 3.3 K/cumm [facility] Monocyte abs 0.7 0.2 - 0.8 K/cumm [facility] Eosinophil abs 0.2 0.0 - 0.5 K/cumm [facility] Basophil abs 0.0 0.0 - 0.1 K/cumm [facility] Neutrophil pct 66.4 % [facility] Comment: Interpretive Data Percent cell count reference ranges are not reported, since discordance with absolute values may lead to misinterpretation of CBC data. Current Interpretive Data was last revised on 2017. Imm gran pct 1.3 % [facility] Comment: Interpretive Data Percent cell count reference ranges are not reported, since discordance with absolute values may lead to misinterpretation of CBC data. Current Interpretive Data was last revised on 2017. Lymphocyte pct 21.4 % [facility] Comment: Interpretive Data Percent cell count reference ranges are not reported, since discordance with absolute values may lead to misinterpretation of CBC data. Current Interpretive Data was last revised on 2017. Monocyte pct 8.3 % [facility] Comment: Interpretive Data Percent cell count reference ranges are not reported, since discordance with absolute values may lead to misinterpretation of CBC data. Current Interpretive Data was last revised on 2017. Eosinophil pct 2.2 % [facility] Comment: Interpretive Data Percent cell [...] ORDERABLES Final Resul t Performing Organization Address City/[facility]/ZIP Co de Phone Number [facility] [address] Department [place] [address] * (ABNORMAL) CBC with auto differential (02/07/2023 10:42 AM CDT) WBC 8.2 3.8 - 9.9 K/cumm [facility] Hgb 12.5 11.9 - 15.5 g/dL [facility] Hct 41.3 35.6 - 45.5 % [facility] Plt 350 150 - 400 K/cumm [facility] MPV 9.5 9.1 - 12.3 fL [facility] RBC 4.24 3.90 - 5.20 M/cumm [facility] MCV 97.4(H) 81.3 - 96.4 fL [facility] MCH 29.5 27.1 - 33.3 pg [facility] MCHC 30.3(L) 32.3 - 35.7 g/dL [facility] RDW CV 14.7 11.1 - 14.9 % [facility] RDW SD 51.9(H) 35.7 - 48.1 fL [facility] NRBC abs 0.02(H) 0.00 - 0.01 K/cumm [facility] Blood 02/07/2023 10:4 2 AM CDT 02/07/2023 4:21 PM CDT us Marixa San NP LAB BLOOD ORDERABLES Final Resul t Performing Organization Address City/[facility]/ZIP Co de Phone Number AILEEN MATTHEW [address] Department [place] [employer] [place] [place] [address] * (ABNORMAL) Comprehensive metabolic panel [...] ORDERABLES Final Resul t Performing Organization Address City/[facility]/RUST Co de Phone Number AILEEN MATTHEW [address] Department of Laboratories [place], [place] [id number] * Pro B-type natriuretic peptide (02/07/2023 10:42 [...] CDT 02/07/2023 4:21 PM CDT Marixa San CAUSTICISER LAB BLOOD ORDERABLES Final Resul t Performing Organization Address City/State/ZIP Co ny Phone Number AILEEN MATTHEW [address] Department [place] [address] documented in this encounter Visit Diagnoses Diagnosis Seizure (HCC) Other convulsions Acute pulmonary edema (CMS/HCC) (HCC) Unspecified acute edema of lung documented in this encounter Care Teams Computer Tape Librarian Relationship Specialty Start Date End Date Servando Torre MD [facility] [address] PCP - General Family Medicine 06/19/[address] [facility] [address] [place] [address] Referring Physician Gastroenterology 06/19/22 Lexis Barroso OD [address] [place] [address] Tobacco Grower 09/19/22 documented as of this encounter
--- OUTSIDE RECORDS SUMMARY | 2024-08-18 11:06 | XMS_ITS | Encounter Summary ---
Author Organization [facility] Address [address] [place] [address] Phone Care Team Providers Care Global Consumer Sector Vice President Name Role Phone Servando Torre MD Primary Care Provider +1 [phone] Mariela Denton MD Unavailable +1 -[phone] Lexis Barroso OD Unavailable +1- [phone] Encounter Details Date Type Department Care Team (Late st Contact Info) Description 12/19/2022 Orders Only [facility] [address] [place] [address] Ramon Rowan MD [address] [place] [address] Social History Tobacco Use Types [...] file 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 [email or web address] Note to Patients: ??This report may contain [...] Information: Ramon Rowan M.D. [facility], [address] [place] [address] ??[address], ? DERMATOPATHOLOGY REPORT RESULTS ?? DIAGNOSIS: SKIN, [...] ICD-9 A; ZSD.232 ? Clerical Data A; 44604 The Characteristics of some immunohistochemical and immunofluorescence stains as well as in-situ hybridization tests were determined by the [facility] in ongoing manager quality compliance and in compliance with regulations drawn from the Clinical Laboratory Improvement Act of 1988 (CLIA '88). These tests may rely on the use of analyte specific reagents that are subject to specific labeling requirements by the [place] FDA, and may only be performed in a facility that is certified by the [facility] as a high-complexity laboratory under CLIA '88. ??These tests are used for clinical purposes and are not investigational. ??For lab developed tests, the validation has been reviewed; the performance is considered acceptable for patient testing. Ramon Rowan MD LAB PATHOLOGY ORDERAB LES Final Result documented in this encounter Visit Diagnoses Not on filedocumented in this encounter Care Teams Global Consumer Sector Vice President Relationship Specialty Start Date End Date Servando Torre MD [address] [facility] [address] [place] [address] PCP - General Family Medicine 06/19/22 Mariela Denton MD [address] [place] [address] Referring Physician Gastroenterology 06/19/22 Lexis Barroso OD [address] [place] [address] College Administrator 09/19/22 documented as of this encounter
--- OUTSIDE RECORDS SUMMARY | 2024-08-18 11:06 | XMS_ITS | Encounter Summary ---
Author Organization [facility] Medical Group Address [address] [facility] [address] [place] [address] Care Team Providers Care Felting Machine Operator Name Role Phone Servando Torre MD Primary Care Provider +1- [phone] Mariela Denton MD Unavailable +1 -[phone] Lexis Barroso OD Unavailable +1- [phone] Reason for Visit * Reason Onset Date Comments Breathing Problem 02/04/2023 Encounter Details Date Type Department Care Team (Late st Contact Info) Description 02/04/2023 Nurse Triage [facility] Medical [facility] Primary Care at [address] [phone] Teresa Navarro, RN Social History Tobacco Use [...] PM CDT Patient's daughter calling back from [place] and continues having difficulty with chargingthe portable [...] inthe low 90s. Patient is currently at [facility] home charging O2 for ride to [place]. Provided patient's daughter with the phone number for Emmanuelle in [place] for possible O2 availability. Phone is [phone]. * Telephone Encounter - Teresa Navarro RN - 02/04/2023 3:57 PM CDT Lisa Allen daughter, Aby, calling due recent low oxygen event while on vacation in [place]. Caller states they are in [place] for [...] O2 To Go - equipment is in [place]. They went with 3rd option which was [...] further resources regarding their portable oxygen issue. [phone] Reason for Disposition Nursing judgment Protocols used: Information Only Call - No [id number] * Telephone Encounter - Teresa Navarro RN - 02/04/2023 3:52 PM CDT Regarding: Patient having difficulty breathing ----- Message from Rhonda Olivas sent at 02/04/2023 3:45 PM CDT ----- Symptom Based Call Caller's Callback #: [phone] Chief Complaint(s): Patient having difficulty breathing Duration: [...] cpr. Patient's and her daughter are in [place] and are trying to make the trip back home, but patient's oxygen levels continue to dip. Patient sent home from hospital with portable oxygen, but still having difficulty maintaining levels. Does message need to be routed? Yes-Action Needed documented in this encounter Plan of Treatment Not on file documented as of this encounter Visit Diagnoses Not on filedocumented in this encounter Care Teams Felting Machine Operator Relationship Specialty Start Date End Date Servando Torre MD [facility] [address] PCP - General Family Medicine 06/19/22 Mariela Denton MD [address] [place] [address] Referring Physician Gastroenterology 06/19/22 Lexis Barroso OD [address] [place] [address] Infectious Waste Technician 09/19/22 documented as of this encounter
--- OUTSIDE RECORDS SUMMARY | 2024-08-18 11:06 | XMS_ITS | Encounter Summary ---
Author Organization [facility] Address [address] [place] [address] Phone Care Team Providers Care Cardiovascular Technologist Name Role Phone Servando Torre MD Primary Care Provider Mariela Denton MD Unavailable +1 -[phone] Lexis Barroso OD Unavailable +1- [phone] Reason for Visit * Reason Comments Osteopenia * Diagnostic Imaging (Routine) - Closed Specialty Diagnoses / Procedures Referred By Angel braswell Referred To Contact Diagnoses Screening for osteoporosis Asymptomatic menopausal state Procedures Dexa Axial Skeleton Bone Density 1 or 2 Site Servando Torre MD [address] [facility] [address] [place] [address] Phone: tel: fax: External Order Referral ID Status Reason Start Date Expiration Date Visits Re quested Visits Authorized [id number] Closed 09/19/2022 10/19/2023 1 1 Encounter Details Date Type Department Care Team (Latest Contact Info) Description 12/12/2022 2:30 PM CDT Clinical Support [place] [id number] [facility] 5th [place] [address] [place] [address] Postmenopausal (Primary Dx); Screening for [...] on file Legal Sex Female 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 ?? Based on machine [...] by the International Society of Clinical Densitometry. [id number] us Servando Torre MD IMG DXA PROCEDURES Final Re sult documented in this encounter Visit Diagnoses Diagnosis Postmenopausal- Primary Asymptomatic postmenopausal status (age-related) (natural) Screening for osteoporosis Special screening for osteoporosis Asymptomatic menopausal state Osteopenia of multiple sites documented in this encounter Care Teams Cardiovascular Technologist Relationship Specialty Start Date End Date Servando Torre MD [address] [facility] [address] [place] [address] PCP - General Family Medicine 06/19/22 Mariela Denton MD [address] [place] [address] Referring Physician Gastroenterology 06/19/22 Lexis Barroso OD [address] [place] [address] Traffic Agent 09/19/22 documented as of this encounter
--- OUTSIDE RECORDS SUMMARY | 2024-08-18 11:06 | XMS_ITS | Encounter Summary ---
Author Organization [facility] Medical Group Address [address] [facility] [address] [place] [address] Care Team Providers Care Polisher And Sander Name Role Phone Servando Torre MD Primary Care Provider +1 [phone] Mariela Denton MD Unavailable +1 -[phone] Lexis Barroso OD Unavailable +1- [phone] Reason for Referral * Consultation (Routine) - Closed Specialty Diagnoses / Procedures Referred By Angel braswell Referred To Contact Neurology Diagnoses Seizure (HCC) Marixa aSn NP [address] [facility] [address] [place] [address] Phone: tel: fax: [facility] Epilepsy [address] [facility] 6th [place] [address] [place] [address] Phone: tel: fax: Referral ID Status Reason Start Date Expiration Date V isits Requested Visits Authorized [id number] Closed Specialty Services Required 02/07/2023 03/08/2024 1 1 Question Answer Please select the performing region: [facility] [[id number]] Please select the performing department: [facility] RES COH NEUROLOGY [[id number]] # of visits: 1 * Diagnostic Imaging (Routine) - Closed Specialty Diagnoses / Procedures Referred By Angel braswell Referred To Contact Diagnoses Liver nodule Procedures US Liver Marixa San NP [address] [place] [address] [address] [place] [address] Phone: tel: fax: External Order Referral ID Status Reason Start Date Expiration Date Visits Re quested Visits Authorized [id number] Closed 02/07/2023 03/08/2024 1 1 Reason for Visit * Reason Comments CHRISTELLE Discharged on 02/02 [facility] [place] operated by [facility] in [place], [place] for possible seizure due to lack of oxygen. 8 broken ribs. Due to CPR. oxygen Walking needs increa sed on oxygen. First thing in the morning when in pain oxygen is increased as well. 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 Patient was in [place] at high altitude for a family reunion. [...] when O2 drops. Patient returned from [place] last night. She is supposed to mail back current concentrator tomorrow to [place]. Patient's mental status still not 100% back [...] NP LAB BLOOD ORDERABLES Final Resul t [facility] [address] Department [place] [address] * (ABNORMAL) Comprehensive metabolic panel [...] LAB BLOOD ORDERABLES Final Resul t [facility] [address] Department [place] [address] * (ABNORMAL) CBC with auto differential (02/07/2023 10:42 AM CDT) Pathologist [facility] WBC 8.2 3.8 - 9.9 K/cumm CERNER [...] CH MCHC 30.3(L) 32.3 - 35.7 g/dL [facility] RDW CV 14.7 11.1 - 14.9 % [facility] RDW SD 51.9(H) 35.7 - 48.1 fL [facility] NRBC abs 0.02(H) 0.00 - 0.01 K/cumm [facility] Blood 02/07/2023 10:4 2 AM CDT 02/07/2023 4:21 PM CDT us Marixa San ANIMAL CARE TAKER LAB BLOOD ORDERABLES Final Resul t [facility] [address] Department [place] [address] documented in this encounter Visit [...] 4 added in this encounter Care Teams Polisher And Sander Relationship Specialty Start Date End Date Servando Torre MD [facility] [address] PCP - General Family Medicine 06/19/22 Mariela Denton MD [facility] [address] [place] [address] Referring Physician Gastroenterology 06/19/22 Lexis Barroso OD [address] [place] [address] Operations Plant Attendant 09/19/22 documented as of this encounter
--- OUTSIDE RECORDS SUMMARY | 2024-08-18 11:06 | XMS_ITS | Encounter Summary ---
Author Organization [facility] Medical Group Address [address] [facility] [address] [place] [address] Care Team Providers Care Sharepoint Developer Name Role Phone Servando Torre MD Primary Care Provider +1- [phone] Mariela Denton MD Unavailable +1 -[phone] Lexis Barroso OD Unavailable +1- [phone] Encounter Details Date Type Department Care Team (Late st Contact Info) Description 11/08/2022 Telephone [facility] Medical Group Primary Care at [place] [address] [place] [address] Servando Torre MD [address] [place] [address] [address] [place] [address] Social History Tobacco Use Types [...] on file Legal 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 It can be faxed to [phone]. If you have any questions please call [phone] and ask for Saul. Thank you * Telephone Encounter - Vero Antonio - 11/08/2022 8:47 AM CDT [facility] , pt has a apt at 12 pm , please advise thanks. [phone] FX [phone] documented in this encounter Plan of Treatment Not on file documented as of this encounter Visit Diagnoses Diagnosis Balance problem- Primary Abnormality of gait documented in this encounter Care Teams Sharepoint Developer Relationship Specialty Start Date End Date Servando Torre MD [address] [address] PCP - General Family Medicine 06/19/22 Mariela Denton MD [address] [place] [address] Referring Physician Gastroenterology 06/19/22 Lexis Barroso OD [address] [place] [address] Railroad Maintenance Clerk 09/19/22 documented as of this encounter
--- OUTSIDE RECORDS SUMMARY | 2024-08-18 11:06 | XMS_ITS | Encounter Summary ---
Author Organization [facility] Medical Group Address [address] [facility] [address] [place] [address] Care Team Providers Care Insurance Sales Executive Name Role Phone Servando Torre MD Primary Care Provider +1- [phone] Mariela Denton MD Unavailable +1 -[phone] Lexis Barroso OD Unavailable +1- [phone] Encounter Details Date Type Department Care Team (Late st Contact Info) Description 02/07/2023 10:45 AM CDT Lab [facility] Medical [facility] Outpatient Lab at [address] [address] Seizure (HCC) (Primary Dx) Social [...] on file 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 Gender Identity Female 04/05/2022 6:17 PM CDT Sexual Orientation Straight 04/05/2022 6: 17 PM CDT documented as of this encounter Plan of Treatment Not on file documented as of this encounter Visit Diagnoses Diagnosis Seizure (HCC)- Primary Other convulsions documented in this encounter Care Teams Insurance Sales Executive Relationship Specialty Start Date End Date Servando Torre MD [address] [facility] [address] [place] [address] PCP - General Family Medicine 06/19/22 Mariela Denton MD [address] [place] [address] Referring Physician Gastroenterology 06/19/22 Lexis Barroso OD [address] [place] [address] Outcomes Manager 09/19/22 documented as of this encounter
--- OUTSIDE RECORDS SUMMARY | 2024-08-18 11:06 | XMS_ITS | Encounter Summary ---
Author Organization [facility] Medical Group Address [address] [facility] [address] [place] [address] Care Team Providers Care Copy Chief Name Role Phone Servando Torre MD Primary Care Provider +1- [phone] Mariela Denton MD Unavailable +1 -[phone] Lexis Barroso OD Unavailable +1- [phone] Reason for Visit * Reason Onset Date Comments Medical Question/Miscellaneous 02/07/2023 Encounter Details Date Type Department Care Team (Late st Contact Info) Description 02/07/[address] 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 Torre's care team regarding the oxygen order. She is needing to speak with a nurse before the end of the day. Caller???s Call back #: [phone] Does message need to be routed? Yes-Action Needed documented in this encounter Plan of Treatment Not on file documented as of this encounter Visit Diagnoses Not on filedocumented in this encounter Care Teams Copy Chief Relationship Specialty Start Date End Date Servando Torre MD [address] [facility] [address] [place] [address] PCP - General Family Medicine 06/19/22 Mariela Denton MD [address] [place] [address] Referring Physician Gastroenterology 06/19/22 Lexis Barroso OD [address] [place] [address] Miter Saw Operator 09/19/22 documented as of this encounter
--- OUTSIDE RECORDS SUMMARY | 2024-08-18 11:06 | XMS_ITS | Encounter Summary ---
Author Organization [facility] Medical Group Address [address] [facility] [address] [place] [address] Care Team Providers Care Overlock Elastic Attacher Name Role Phone Servando Torre MD Primary Care Provider +1- [phone] Mariela Denton MD Unavailable +1 -[phone] Lexis Barroso OD Unavailable +1- [phone] Reason for Visit * Reason Onset Date Comments Medical Question/Miscellaneous 02/04/2023 Encounter Details Date Type Department Care Team (Late st Contact Info) Description 02/04/2023 Telephone [facility] Medical [facility] Primary Care at [address] [address] Servando Torre MD [address] [place] [address] [address] [place] [address] Medical Question/Miscellaneous Social History Tobacco [...] on file 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 Caller???s Call back #: [phone] Does message need to be routed? No * Telephone Encounter - Rhonda Olivas - 02/04/2023 4:39 PM CDT Call Back Caller???s Concern: Patient's daughter called back after speaking with nurse triage, had additionalquestions regarding getting help from insurance case management team. Warm Transferred to Triage back door at the advice of Lead. Caller???s Call back #: [phone] Does message need to be routed? No documented in this encounter Plan of Treatment Not on file documented as of this encounter Visit Diagnoses Not on filedocumented in this encounter Care Teams Overlock Elastic Attacher Relationship Specialty Start Date End Date Servando Torre MD [address] [address] PCP - General Family Medicine 06/19/22 Mariela Denton MD [address] [place] [address] Referring Physician Gastroenterology 06/19/22 Lexis Barroso OD [address] [place] [address] Marine Driller 09/19/22 documented as of this encounter
--- OUTSIDE RECORDS SUMMARY | 2024-08-18 11:06 | XMS_ITS | Encounter Summary ---
Author Organization [facility] Medical Group Address [address] [facility] [address] [place] [address] Care Team Providers Care Woods Superintendent Name Role Phone Servando Torre MD Primary Care Provider +1- [phone] Mariela Denton MD Unavailable +1 -[phone] Lexis Barroso OD Unavailable +1- [phone] Encounter Details Date Type Department Care Team (Late st Contact Info) Description 02/12/2023 Orders Only [facility] Medical [facility] Primary Care at [place] [address] [place] [address] Marixa San NP [address] [facility] 130 [place] [address] Memory changes (Primary Dx) Social [...] file Legal Sex 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
--- OUTSIDE RECORDS SUMMARY | 2024-08-18 11:06 | XMS_ITS | Encounter Summary ---
Author Organization [facility] Medical Group Address [address] [facility] [address] [place] [address] Care Team Providers Care Hardwood Floor Sander Name Role Phone Servando Torre MD Primary Care Provider +1- [phone] Mariela Denton MD Unavailable +1 -[phone] Lexis Barroso OD Unavailable +1- [phone] Reason for Visit * Reason Comments Health Maintenance 3 mo Encounter Details Date Type Department Care Team (Late st Contact Info) Description 12/19/2022 2:00 PM CDT Office Visit [facility] Medical Group Primary Care at [address] [address] Servando Torre MD [address] [place] [address] [address] [place] [address] Hypertension associated with type 2 [...] file Legal Sex Female 9:30 AM AUTOMOTIVE 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 You may receive a phone call, text, [...] last revised on 2014. POC Performer 11/29/2022 [id number] Final POC Device Number 11/29/2022 [id number] Final Assessment/Plan Diagnoses and all orders for [...] office note has been partially dictated using [employer] software, and as a result portions of the record may have been created with this software. Occasional wrong-word or '[id number]' substitutions may have occurred due to the [...] children were not included. ?? (Diabetes Care 31:3589-9773, 2007). ??The eAG is not equivalent to a fasting glucose. Blood 03/21/2023 3:20 PM CDT 03/21/2023 6:04 PM CDT Servando Torre MD LAB BLOOD ORDERABLES Final Result Performing Organization Address [facility] Co wa Phone Number ALBERTCITLALI [address] [place] [address] * (ABNORMAL) Albumin Creatinine Ratio, [...] PM CDT 03/21/2023 6:04 PM CDT Result [facility] Servando Torre MD LAB URINE ORDERABLES Final Result Performing Organization Address [facility] Co de Phone Number AILEEN MATTHEW [address] Department [place] [address] documented in this encounter Visit Diagnoses Diagnosis Hypertension associated with type 2 diabetes mellitus (HCC)- Primary Hyperlipidemia due to type 2 diabetes mellitus (HCC) Gastroesophageal reflux disease without esophagitis Esophageal reflux documented in this encounter Care Teams Hardwood Floor Sander Relationship Specialty Start Date End Date Servando Torre MD [address] [address] PCP - General Family Medicine 06/19/22 Mariela Denton MD [address] [place] [address] Referring Physician Gastroenterology 06/19/22 Lexis Barroso OD [address] [place] [address] It Project Manager 09/19/22 documented as of this encounter
--- OUTSIDE RECORDS SUMMARY | 2024-08-18 11:06 | XMS_ITS | Encounter Summary ---
Author Organization [facility] Medical Group Address [address] [facility] [address] [place] [address] Care Team Providers Care Transportation Project Manager Name Role Phone Servando Torre MD Primary Care Provider +1- [phone] Mariela Denton MD Unavailable +1 -[phone] Lexis Barroso OD Unavailable +1- [phone] Encounter Details Date Type Department Care Team (Late st Contact Info) Description 12/29/[address] [facility] Medical [facility] Primary Care at [address] [address] Servando Torre MD [address] [place] [address] [address] [place] [address] Security Compliance Specialist Social History Tobacco Use Types Packs/Day Years [...] on file Legal Sex Female 9:30 AM DEBT COLLECTION SPECIALIST Gender Identity Female 04/05/2022 6:17 PM CDT Sexual Orientation Straight 04/05/2022 6: 17 PM CDT documented as of this encounter Plan of Treatment Not on file documented as of this encounter Visit Diagnoses Diagnosis Diabetic foot (CMS/HCC) (HCC)- Primary Type II or unspecified type diabetes mellitus with other specified manifestations, not stated as uncontrolled documented in this encounter Care Teams Transportation Project Manager Relationship Specialty Start Date End Date Servando Torre MD [address] [facility] [address] [place] [address] PCP - General Family Medicine 06/19/22 Mariela Denton MD [address] [place] [address] Referring Physician Gastroenterology 06/19/22 Lexis Barroso OD [address] [place] [address] Outboard Motor Assembler 09/19/22 documented as of this encounter
--- OUTSIDE RECORDS SUMMARY | 2024-08-18 11:07 | XMS_ITS | Encounter Summary ---
Author Organization [facility] Address [address] [place] [address] Phone Care Team Providers Care Auto Emissions Technician Name Role Phone Servando Torre MD Primary Care Provider +1 [phone] Mariela Denton MD Unavailable +1 -[phone] Reason for Visit * Reason Onset Date Comments Infusion & Covid 07/02/2022 Encounter Details Date Type Department Care Team (Late st Contact Info) Description 07/02/2022 Telephone [facility] Gastroenterology [facility] 12th [place] [address] [place] [address] Lexis Renteria RN Infusion & [...] file Legal Sex Female 9:30 AM SENIOR QA ENGINEER Gender Identity Female 04/05/2022 6:17 PM CDT Sexual Orientation Straight 04/05/2022 6: 17 PM CDT documented as of this encounter Miscellaneous Notes * Telephone Encounter - Lexis Renteria RN - 07/02/2022 3:47 PM CST Received a VM from Varsha with [employer] in [place]. Patient is calling to schedule her Entyvio, [...] line in case she needs additional clarification. OR QA ENGINEER documented in this encounter Plan of Treatment Not on file documented as of this encounter Visit Diagnoses Not on filedocumented in this encounter Care Teams Auto Emissions Technician Relationship Specialty Start Date End Date Servando Torre MD [facility] [address] PCP - General Family Medicine 06/19/22 Mariela Denton MD [address] [place] [address] Referring Physician Gastroenterology 06/19/22 documented as of this encounter
--- OUTSIDE RECORDS SUMMARY | 2024-08-18 11:07 | XMS_ITS | Encounter Summary ---
Author Organization [facility] Medical Group Address [address] [facility] [address] [place] [address] Care Team Providers Care Engineering Professor Name Role Phone Servando Torre MD Primary Care Provider [phone]- [phone] Mariela Denton MD Unavailable [phone] [phone] Lexis Barroso OD Unavailable +1- [phone] Reason for Referral * Diagnostic Imaging (Routine) - Closed Specialty Diagnoses / Procedures Referred By Contac t Referred To Contact Diagnoses Screening for osteoporosis Asymptomatic menopausal state Procedures Dexa Axial Skeleton Bone Density 1 or 2 Site Servando Torre MD [address] [place] [address] [address] [place] [address] Phone: tel: fax: External Order Referral ID Status Reason Start Date Expiration Date Visits Re quested Visits Authorized [id number] Closed 09/19/2022 10/19/2023 1 1 EDO SPECIALIST Reason for Visit * Reason Comments Follow-up 3 month f/u Encounter Details Date Type Department Care Team (Late Contact Info) Description 09/19/2022 2:00 PM TORPEDO SPECIALIST Office Visit [facility] Primary Care at [address] [phone] Servando Torre MD [address] [facility] [address] [place] [address] Type 2 diabetes mellitus with [...] on file Legal Sex Female 9:30 AM TORPEDO SPECIALIST Gender Identity Female 04/05/2022 6:17 PM CDT Sexual Orientation Straight 04/05/2022 6: 17 PM CDT documented as of this encounter Last Filed Vital Signs Vital Sign Reading Time Taken Comments Blood Pressure 130/74 09/19/2022 2:13 PM TORPEDO SPECIALIST Pulse 77 09/19/2022 2:13 PM TORPEDO SPECIALIST Temperature 35.9 ??C (96.7 ??F) 09/19/2022 2:13 PM CS T Respiratory Rate 16 09/19/2022 2:13 PM TORPEDO SPECIALIST Oxygen Saturation 97% 09/19/2022 2:13 PM TORPEDO SPECIALIST Inhaled Oxygen Concentration - - Weight 69.9 kg (154 lb) 09/19/2022 2:13 PM TORPEDO SPECIALIST Height 157.5 cm (5' 2 ) 09/19/2022 2:13 PM TORPEDO SPECIALIST Body Mass Index 28.17 09/19/2022 2:13 PM TORPEDO SPECIALIST documented in this encounter Patient Instructions * Patient Instructions* Regina Toscano MA - 09/19/2022 2:00 PM TORPEDO SPECIALIST Increasing metformin to 850 mg twice daily, a1c increased to 7.2% Continuing current regimen otherwise Continue to avoid starches, potatoes, other carb-rich foods Bone density study ordered (to rule out osteoporosis), at [facility] GET 3 MONTHS LAB DONE IN NOVEMBER Thanks for coming in today! My medical assistants and I are thankful you have trusted us with your care, and hope that you received EXCELLENT care today! Please do not hesitate to call if you have any questions or concerns at [phone]. You may receive a phone call, text, MYCHART message, or e-mail asking about your care today. We would love to hear your feedback on how EXCELLENT your care wastoday! Wishing you better health, always. Dr. Torre EDO SPECIALIST EDO SPECIALIST EDO SPECIALIST * Attachments The following attachments cannot be sent through Care Everywhere. * Memory Loss in Older Adults (General Information) (Somali) documented in this encounter Ordered Prescriptions Prescription [...] going well. She is getting PT at [facility], feels it is helping. Her arm is [...] being taken. She does not see a mat making machine tender.Eyeexam is current. Hypertension This is a chronic problem. Associated symptoms include blurred vision. Pertinent negatives include no chest pain, headaches, malaise/fatigue, neck pain, palpitations, peripheral edema, PND, shortnessof breath or sweats. Past treatments include calcium channel blockers and beta blockers. Compliance problems include diet and exercise. There is no history of kidney disease, CAD/RI or heart failure. Hyperlipidemia This is a [...] hyperglycemia, without long-term current use of insulin ([facility]) ([facility]) (Primary) - POCT hemoglobin A1c - metFORMIN [...] created with this software. Occasional wrong-word or 'arjdd-c-edwv' substitutions may have occurred due to the inherent limitations of voice recognition software. Read the chartcarefully and recognize, using context, where substitutions have occurred. EDO SPECIALIST documented in this encounter Miscellaneous Notes * [...] HEMOGLOBIN A1C Routine 09/19/2022 2 :51 PM TORPEDO SPECIALIST Type 2 diabetes mellitus with hyperglycemia, without long-term current use of insulin ([facility]) (HCC) documented in this encounter Results * [...] RDW SD 54.9(H) 35.7 - 48.1 fL CERFORMERLY NAMED [facility] NRBC abs 0.02(H) 0.00 - 0.01 K/cumm [facility] Blood 03/21/2023 3:20 PM CDT 03/21/2023 6:04 PM CDT Servando Torre MD LAB BLOOD ORDERABLES Final Result [facility] [address] Department [place] [address] * (ABNORMAL) Comprehensive metabolic panel (03/21/2023 3:20 PM CDT) Sodium 141 135 - 145 mmol/L [facility] Potassium, pl 3.9 3.3 - 4.9 mmol/L [facility] Chloride 102 97 - 110 mmol/L [facility] CO2 29 22 - 32 mmol/L [facility] Anion gap 10 2 - 15 mmol/L [facility] BUN 12 6 - 25 mg/dL [facility] Creatinine 0.79 0.60 - 1.10 mg/dL [facility] Glucose 130 70 - 199 mg/dL [facility] Comment: Interpretive Data Fasting glucose [...] BLOOD ORDERABLES Final Result Performing Organization Address City/State/[facility] Phone Number CERNER [phone] Department [place] [address] * (ABNORMAL) Lipid panel (03/21/2023 3:20 PM [...] BLOOD ORDERABLES Final Result Performing Organization Address City/State/[facility] Phone Number AILEEN [phone] Department [place] [address] * Dexa Axial Skeleton Bone Density 1 or 2 Site (12/12/2022 2:33 PM CDT) Anatomical Region Laterality Modality Body N/A Radiographic Keyanna ging Narrative 12/12/2022 3:00 PM CDT Patient Name: Lisa Allen Date of : 1945 Date of scan: 12/12/2022 Bone mineral density was performed on a PAX Streamline Discovery Densitometer. ?? Based on machine cross-calibration [...] by the International Society of Clinical Densitometry. [id number] us Servando Torre MD IMG DXA PROCEDURES Final Re sult * POCT hemoglobin A1c (09/19/2022 2:51 PM TORPEDO SPECIALIST) Hemoglobin A1C, POC 7.2 % Blood 09/19/2022 2:51 PM TORPEDO SPECIALIST Servando Torre MD POINT OF CARE TEST [...] documented as of this encounter Care Teams Engineering Professor Relationship Specialty Start Date End Date Servando Torre MD [address] [address] PCP - General Family Medicine 06/19/22 Mariela Denton MD [address] [place] [address] Referring Physician Gastroenterology 06/19/22 Lexis Barroso OD [address] [place] [address] Core Shaper Top 09/19/22 documented as of this encounter
--- OUTSIDE RECORDS SUMMARY | 2024-08-18 11:07 | XMS_ITS | Encounter Summary ---
Author Organization [facility] Healthcare Address [address] [place] [address] Care Team Providers Care Helix Coil Winder Name Role Phone Servando Torre MD Primary Care Provider [phone] Mariela Denton MD Unavailable [phone] [phone] Encounter Details Date Type Department Care Team (Latest Contact Info) Description 07/26/2022 8:52 AM METER ENGINEER - 07/26/2022 11:59 PM METER ENGINEER Hospital Encounter [facility] [address] [place], [place] [id number] Mixed hyperlipidemia Discharge Disposition: Discharge to home [...] on file Legal Sex Female 9:30 AM METER ENGINEER Gender Identity Female 04/05/2022 6:17 PM [...] Comments LIPID PANEL Routine 07/26/2022 8:52 AM METER ENGINEER Mixed hyperlipidemia documented in this encounter Results * Lipid panel (07/26/2022 8:52 AM METER ENGINEER) Cholesterol 152 30 - 199 mg/dL AILEEN [...] ratio 3 AILEEN Blood 07/26/2022 8:52 AM METER ENGINEER 07/26/2022 2:37 PM METER ENGINEER Servando Torre MD LAB BLOOD ORDERABLES Final Result Performing Organization Address City/State/[facility] Phone Number AILEEN [address] [address] Department [place] [address] documented in this encounter Visit Diagnoses Diagnosis Mixed hyperlipidemia documented in this encounter Additional Health Concerns Infection Onset Date Last Indicated Resolved Time COVID: Recovered Comment:Added based on recent COVID infection. 07/13/2022 07/26/2022 10/11/2022 3:05 AM C DT documented as of this encounter Care Teams Helix Coil Winder Relationship Specialty Start Date End Date Servando Torre MD [address] [address] PCP - General Family Medicine 06/19/22 Mariela Denton MD [address] [place] [address] Referring Physician Gastroenterology 06/19/22 documented as of this encounter
--- OUTSIDE RECORDS SUMMARY | 2024-08-18 11:07 | XMS_ITS | Encounter Summary ---
Author Organization [facility] Medical Group Address [address] [facility] [address] [place] [address] Care Team Providers Care Parachute Folder Name Role Phone Servando Torre MD Primary Care Provider Mariela Denton MD Unavailable [phone] Encounter Details Date Type Department Care Team (Late st Contact Info) Description 07/26/2022 9:15 AM BUILDING CARPENTER Lab [facility] Outpatient Lab at [address] [address] Cough, unspecified type Social History [...] file Legal Sex Female 9:30 AM BUILDING CARPENTER Gender Identity Female 04/05/2022 6:17 PM [...] documented as of this encounter Care Teams Parachute Folder Relationship Specialty Start Date End Date Servando Torre MD [address] [facility] [address] [place] [address] PCP - General Family Medicine 06/19/22 Mariela Denton MD [address] [place] [address] Referring Physician Gastroenterology 06/19/22 documented as of this encounter
--- OUTSIDE RECORDS SUMMARY | 2024-08-18 11:07 | XMS_ITS | Encounter Summary ---
Author Organization [facility] Address [address] [place] [address] Phone Care Team Providers Care English Language Learner Tutor Name Role Phone Servando Torre MD Primary Care Provider [phone] Mariela Denton MD Unavailable [phone] [phone] Lexis Barroso OD Unavailable [phone]- [phone] Encounter Details Date Type Department Care Team (Late st Contact Info) Description 09/20/2022 Orders Only [facility] Gastroenterology [address] [facility] 12th [place] [address] [place] [phone] Lexis Renteria, ELMO Social History Tobacco Use [...] on file Legal Sex Female 9:30 AM PATHOLOGY LABORATORY AIDES TEACHER Gender Identity Female 04/05/2022 6:17 PM [...] documented as of this encounter Care Teams English Language Learner Tutor Relationship Specialty Start Date End Date Servando Torre MD [address] [facility] [address] [place] [address] PCP - General Family Medicine 06/19/22 Mariela Denton MD [address] [place] [address] Referring Physician Gastroenterology 06/19/22 Lexis Barroso OD [address] [address] Agriscience Technology Instructor 09/19/22 documented as of this encounter
--- OUTSIDE RECORDS SUMMARY | 2024-08-18 11:07 | XMS_ITS | Encounter Summary ---
Author Organization [facility] Medical Group Address [address] [facility] [address] [place] [address] Care Team Providers Care Boiler Cleaner Name Role Phone Servando Torre MD Primary Care Provider Mariela Denton MD Unavailable [phone] Encounter Details Date Type Department Care Team (Late st Contact Info) Description 07/12/2022 Telephone [facility] Primary Care at [address] [address] Servando Torre MD [address] [place] [address] [address] [place] [address] Social History Tobacco Use Types [...] on file Legal Sex Female 9:30 AM AUTOMATIC BRINE MIXER OPERATOR Gender Identity Female 04/05/2022 6:17 PM CDT Sexual Orientation Straight 04/05/2022 6: 17 PM CDT documented as of this encounter Miscellaneous Notes * Telephone Encounter - Servando Torre MD - 07/12/2022 4:18 PM AUTOMATIC BRINE MIXER OPERATOR ordered MATIC BRINE MIXER OPERATOR * Telephone Encounter - Vero Antonio - 07/12/2022 1:36 PM CST Pt is currently being see for her L shoulder with [facility] in [place] , but the pt has been having some gait and balance issues. They are requesting a script for Physical therapy to treat the pt. For any questions you can speak with the provider Saul Ribera. Fx [phone] MATIC BRINE MIXER OPERATOR documented in this encounter Plan of Treatment Not on file documented as of this encounter Visit Diagnoses Diagnosis Balance problem- Primary Abnormality of gait documented in this encounter Additional Health Concerns Infection Onset Date Last Indicated Resolved Time COVID19 07/03/2022 07/03/2022 07/13/2022 3:05 AM AUTOMATIC BRINE MIXER OPERATOR documented as of this encounter Care Teams Boiler Cleaner Relationship Specialty Start Date End Date Servando Torre MD [address] [place] [address] PCP - General Family Medicine 06/19/22 Mariela Denton MD [address] [place] [address] Referring Physician Gastroenterology 06/19/22 documented as of this encounter
--- OUTSIDE RECORDS SUMMARY | 2024-08-18 11:07 | XMS_ITS | Encounter Summary ---
Author Organization [facility] Medical Group Address [address] [facility] [address] [place] [address] Care Team Providers Care Telephone Switchboard Operator Name Role Phone Servando Torre MD Primary Care Provider Mariela Denton MD Unavailable [phone] Reason for Visit * Reason Onset Date Comments Lab Results 08/02/2022 Encounter Details Date Type Department Care Team (Late st Contact Info) Description 08/02/2022 Telephone [facility] Medical [facility] Primary Care at [address] [address] Servando Torre MD [address] [place] [address] [address] [place] [address] Lab Results Social History Tobacco [...] on file Legal Sex Female 9:30 AM BOX REPAIRER Gender Identity Female 04/05/2022 6:17 PM CDT Sexual Orientation Straight 04/05/2022 6: 17 PM CDT documented as of this encounter Miscellaneous Notes * Telephone Encounter - Regina Toscano MA - 08/02/2022 2:52 PM BOX REPAIRER Attempted to contact Lisa with no answer. LMOM to contact the office back at [phone] Regarding: lab results Telephone task has been made. Please relay: Cholesterol well controlled, nice job REPAIRER * Telephone Encounter - Regina Toscano MA - 08/02/2022 2:51 PM BOX REPAIRER ----- Message from Marixa San NP sent at 07/26/2022 4:29 PM BOX REPAIRER ----- Cholesterol well controlled, nice job REPAIRER documented in this encounter Plan of Treatment Not on file documented as of this encounter Visit Diagnoses Not on filedocumented in this encounter Additional Health Concerns Infection Onset Date Last Indicated Resolved Time COVID: Recovered Comment:Added based on recent COVID infection. 07/13/2022 07/26/2022 10/11/2022 3:05 AM C DT documented as of this encounter Care Teams Telephone Switchboard Operator Relationship Specialty Start Date End Date Servando Torre MD [address] [facility] [address] [place] [address] PCP - General Family Medicine 06/19/22 Mariela Denton MD [address] [place] [address] Referring Physician Gastroenterology 06/19/22 documented as of this encounter
--- OUTSIDE RECORDS SUMMARY | 2024-08-18 11:07 | XMS_ITS | Encounter Summary ---
Author Organization [facility] Address [address] [place] [address] Phone Care Team Providers Care Matchbook Assembler Name Role Phone Servando Torre MD Primary Care Provider [phone]- [phone] Mariela Denton MD Unavailable [phone] [phone] Lexis Barroso OD Unavailable [phone]- [phone] Encounter Details Date Type Department Care Team (Late st Contact Info) Description 10/10/2022 9:45 AM CDT Office Visit [facility] Gastroenterology [address] [facility] 12th [place] [address] [place] [address] Mariela Denton MD [address] [place] [address] Ulcerative colitis with complication, unspecified location (HCC) [...] file Legal Sex Female 9:30 AM CYBER SECURITY ARCHITECT Gender Identity Female 04/05/2022 6:17 PM [...] scheduling. A referral will be placed for [facility] Derm. [facility] Dermatology [address] [place] [address] documented in this encounter Progress Notes * [...] 10/10/2022 05:24 PM Mariela Denton MD, MPH clinical nurse occupational medicine Division of Gastroenterology AG/lulu documented in this encounter Plan of Treatment Not on file documented as of this encounter Results * (ABNORMAL) Hemoglobin A1c (10/10/2022 11:14 AM CDT) HbA1c 6.7(H) 5.1 - 5.6 % [facility] Comment: HBA1C 5.1 - 5.6 = NORMAL HBA1C 5.7 - 6.4 = PREDIABETES HBA1C >=6.5 = PROVISIONAL DIAGNOSIS OF DIABETES Estimated Average Glucose 146 mg/dL [facility] Blood 10/10/2022 11:1 4 AM CDT [...] AM CDT 10/10/2022 12:04 PM CDT Narrative [facility] - 10/10/2022 1:25 PM CDT Current interpretive data was last updated June 29, 2021. us Mariela Denton MD LAB BLOOD ORDERABLE S Final Result [facility] * (ABNORMAL) [...] MD LAB BLOOD ORDERABLE S Final Result [facility] * [...] LAB BLOOD ORDERABLE S Final Result [facility] documented in [...] documented as of this encounter Care Teams Matchbook Assembler Relationship Specialty Start Date End Date Servando Torre MD [address] [facility] [address] [place] [address] PCP - General Family Medicine 06/19/22 Mariela Denton MD [address] [place] [address] Referring Physician Gastroenterology 06/19/22 Lexis Barroso OD [address] [place] [address] Cafeteria Assistant 09/19/22 documented as of this encounter
--- OUTSIDE RECORDS SUMMARY | 2024-08-18 11:07 | XMS_ITS | Encounter Summary ---
Author Organization [facility] Medical [facility] Address [address] [facility] [address] [place] [address] Care Team Providers Care Painter Aircraft Name Role Phone Servando Torre MD Primary Care Provider [phone] Mariela Denton MD Unavailable [phone] [phone] Reason for Referral * Procedure (Routine) - Closed Specialty Diagnoses / Procedures Referred By Angel braswell Referred To Contact Diagnoses Bilateral impacted cerumen Procedures Ear Cerumen Removal Servando Torre MD [address] [place] [address] [address] [place] [address] Phone: tel: fax: [facility] Referral ID Status Reason Start Date Expiration Date Visits Re quested Visits Authorized [id number] Closed 09/11/2022 10/11/2023 1 1 STERED RESPIRATORY THERAPIST Reason for Visit * Reason Comments Cerumen Impaction Pt is here to have e ar cleaning. She saw an manager women and they recommend she see an ENT for wax build up because the wax was close to her ear drum. Encounter Details Date Type Department Care Team (Late Contact Info) Description 09/11/2022 10:00 AM REGISTERED RESPIRATORY THERAPIST Office Visit [facility] Primary Care at [address] [phone] Servando Torre MD [address] [place] [address] [address] [place] [address] Bilateral impacted cerumen (Primary Dx) Social History [...] on file Legal Sex Female 9:30 AM REGISTERED RESPIRATORY THERAPIST Gender Identity Female 04/05/2022 6:17 PM CDT Sexual Orientation Straight 04/05/2022 6: 17 PM CDT documented as of this encounter Last Filed Vital Signs Vital Sign Reading Time Taken Comments Blood Pressure 134/80 09/11/2022 10:13 AM REGISTERED RESPIRATORY THERAPIST Pulse 75 09/11/2022 10:13 AM REGISTERED RESPIRATORY THERAPIST Temperature 36.8 ??C (98.3 ??F) 09/11/2022 1 0:13 AM REGISTERED RESPIRATORY THERAPIST Respiratory Rate - - Oxygen Saturation 98% 09/11/2022 10: 13 AM REGISTERED RESPIRATORY THERAPIST Inhaled Oxygen Concentration - - Weight 70.7 kg (155 lb 12.8 oz) 023 10:13 AM REGISTERED RESPIRATORY THERAPIST Height 157.5 cm (5' 2 ) 09/11/2022 10:1 3 AM REGISTERED RESPIRATORY THERAPIST Body Mass Index 28.5 09/11/2022 10:13 AM REGISTERED RESPIRATORY THERAPIST documented in this encounter Patient Instructions * Patient Instructions* Servando Torre MD - 09/11/2022 10:00 AM REGISTERED RESPIRATORY THERAPIST Successful removal; there is residual cerumen, but not impacted Advising to use at-home earwax cleanser kit once weekly Examples: WaxRx, Debrox, Murine Will re-look next week at [facility] Thanks for coming in today! My medical assistants and I are thankful you have trusted us with your care, and hope that you received EXCELLENT care today! Please do not hesitate to call if you have any questions or concerns at [phone]. You may receive a phone call, text, MYCHART message, or e-mail asking about your care today. We would love to hear your feedback on how EXCELLENT your care wastoday! Wishing you better health, always. Dr. Torre STERED RESPIRATORY THERAPIST * Attachments The following attachments cannot be sent through Care Everywhere. * Cerumen Impaction (General Information) (German) documented in this encounter Progress Notes * Servando Torre MD - 09/11/2022 10:00 AM CST Images from the original note were not included. Subjective/Objective Patient ID: Lisa Allen is a 77 y.o. female. Chief Complaint Cerumen Impaction (Pt is here to have ear cleaning. She saw an manager women and they recommend she see an ENT for wax build up because the wax was close to her ear drum.) Lisa sent here from her manager women, who told her with her impacted ears [...] office note has been partially dictated using Mochila software, and as a result portions of the record may have been created with this software. Occasional wrong-word or '[id number]-[id number]-cwul' substitutions may have occurred due to the inherent limitations of voice recognition software. Read the chartcarefully and recognize, using context, where substitutions have occurred. STERED RESPIRATORY THERAPIST documented in this encounter Procedure Notes * [...] the procedure well with no immediate complications STERED RESPIRATORY THERAPIST documented in this encounter Plan of Treatment Not on file documented as of this encounter Procedures Procedure Name Priority Date/Time Associated Diagnosis Comments PA REMOVAL IMPACTED CERUMEN INSTRUMENTATION UNILAT Routine 09/11/2022 10:00 AM REGISTERED RESPIRATORY THERAPIST Bilateral impacted cerumen documented in this encounter Results * PA REMOVAL IMPACTED CERUMEN INSTRUMENTATION UNILAT (09/11/2022 10:00 AM REGISTERED RESPIRATORY THERAPIST) Narrative Servando Torre MD - 09/11/2022 10:00 AM REGISTERED RESPIRATORY THERAPIST Servando Torre MD ? 09/13/2022 ??5:49 PM [...] documented as of this encounter Care Teams Painter Aircraft Relationship Specialty Start Date End Date Servando Torre MD [address] [facility] [address] [place] [address] PCP - General Family Medicine 06/19/22 Mariela Denton MD [address] [place] [address] Referring Physician Gastroenterology 06/19/22 documented as of this encounter
--- OUTSIDE RECORDS SUMMARY | 2024-08-18 11:07 | XMS_ITS | Encounter Summary ---
Author Organization [facility] Address [address] [place] [address] Care Team Providers Care Psychiatric Attendant Name Role Phone Servando Torre MD Primary Care Provider Mariela Denton MD Unavailable [phone] [phone] Reason for Visit * Reason Comments Establish Care SALES AND SERVICE CONSULTANT-pt has ulcerative colitis and has a specialist appt. Also having shoulder pain Encounter Details Date Type Department Care Team (Late st Contact Info) Description 06/19/2022 3:15 PM PRINCIPLE SOFTWARE ENGINEER Office Visit [facility] Primary Care at [address] [address] Servando Torre MD [address] [place] [address] [address] [place] [address] Initial Medicare annual wellness visit [...] on file Legal Sex Female 9:30 AM PRINCIPLE SOFTWARE ENGINEER Gender Identity Female 04/05/2022 6:17 PM CDT Sexual Orientation Straight 04/05/2022 6: 17 PM CDT documented as of this encounter Last Filed Vital Signs Vital Sign Reading Time Taken Comments Blood Pressure 120/62 06/19/2022 3:29 PM PRINCIPLE SOFTWARE ENGINEER Pulse 67 06/19/2022 3:29 PM PRINCIPLE SOFTWARE ENGINEER Temperature 36.7 ??C (98 ??F) 06/19/2022 3:29 PM PRINCIPLE SOFTWARE ENGINEER Respiratory Rate 20 06/19/2022 3:29 PM PRINCIPLE SOFTWARE ENGINEER Oxygen Saturation 97% 06/19/2022 3:29 PM PRINCIPLE SOFTWARE ENGINEER Inhaled Oxygen Concentration - - Weight 70.8 kg (156 lb) 06/19/2022 3:29 PM PRINCIPLE SOFTWARE ENGINEER Height 157.5 cm (5' 2 ) 06/19/2022 3:29 PM PRINCIPLE SOFTWARE ENGINEER Body Mass Index 28.53 06/19/2022 3:29 PM PRINCIPLE SOFTWARE ENGINEER documented in this encounter Patient Instructions * Patient Instructions* Servando Torre MD - 06/19/2022 3:15 PM PRINCIPLE SOFTWARE ENGINEER Awaiting lipid panel Continuing current regimen, will [...] you have any questions or concerns at [phone]. You may receive a phone call, text, MYCHART message, or e-mail asking about your care today. We would love to hear your feedback on how EXCELLENT your care wastoday! Wishing you better health, always. Dr. Torre CIPLE SOFTWARE ENGINEER CIPLE SOFTWARE ENGINEER CIPLE SOFTWARE ENGINEER documented in this encounter Progress Notes * Servando Torre MD - 06/19/2022 3:15 PM CST MEDICARE ANNUAL WELLNESS VISIT Lisa Komal Allen Medicare Health Risk Assessment Basic Information Do you have an advance directive, such as a living will or durable power of attorney at law?: Yes Do you have to strain or [...] but will be coming off of the [facility],. Problem List, Past Medical and Surgical History: [...] as Referring Physician (Gastroenterology) Primary Pharmacy/DME suppliers: [id number] - [place], [place] - [address] AT [facility] [address] [facility] [address] Detection of Cognitive Impairment: The patient does [...] Improve Diet Advanced Directive Durable Power of Film Processor: Yes Living Will: Yes Assessment and Plan: [...] update and summary of today's office visit. CIPLE SOFTWARE ENGINEER documented in this encounter Miscellaneous Notes * Assessment & Plan Note - Servando Torre MD - 06/23/2022 3:05 PM PRINCIPLE SOFTWARE ENGINEER Associated Problem(s): Encounter for Medicare annual wellness [...] Xray ordered today; possibly rotator cuff dysfunction CIPLE SOFTWARE ENGINEER * Addendum Note - Harleen Gamboa - 06/19/2022 3:15 PM CSTAddended by: HARLEEN GAMBOA on: 07/26/2022 08:52 AM Modules accepted: Orders CIPLE SOFTWARE ENGINEER documented in this encounter Plan of Treatment Not on file documented as of this encounter Results * Lipid panel (07/26/2022 8:52 AM PRINCIPLE SOFTWARE ENGINEER) Pathologist [facility] Cholesterol 152 30 - 199 mg/dL AILEEN [...] 3 AILEEN MATTHEW Blood 07/26/2022 8:52 AM PRINCIPLE SOFTWARE ENGINEER 07/26/2022 2:37 PM PRINCIPLE SOFTWARE ENGINEER Servando Torre MD LAB BLOOD ORDERABLES Final Result AILEEN MATTHEW [address] Department [place] [address] documented in this encounter Visit [...] COVID: Suspected 07/03/2022 07/03/2022 07/03/2022 7:57 PM PRINCIPLE SOFTWARE ENGINEER COVID19 07/03/2022 07/03/2022 07/13/2022 3:05 AM PRINCIPLE SOFTWARE ENGINEER COVID: Recovered Comment:Added based on recent COVID infection. 07/13/2022 07/26/2022 10/11/2022 3:05 AM C DT documented as of this encounter Care Teams Psychiatric Attendant Relationship Specialty Start Date End Date Servando Torre MD [address] [facility] [address] [place] [address] PCP - General Family Medicine 06/19/22 Mariela Denton MD [address] [place] [address] Referring Physician Gastroenterology 06/19/22 documented as of this encounter
--- OUTSIDE RECORDS SUMMARY | 2024-08-18 11:07 | XMS_ITS | Encounter Summary ---
Author Organization [facility] Address [address] [place] [address] Phone Care Team Providers Care Genetics Physician Name Role Phone Servando Torre MD Primary Care Provider [phone] Mariela Denton MD Unavailable [phone] [phone] Lexis Barroso OD Unavailable [phone]- [phone] Encounter Details Date Type Department Care Team (Late st Contact Info) Description 10/10/2022 11:30 AM CDT Lab [facility] Endocrinology Metabolism and Lipid [address] [place] [address] [place] [address] Ulcerative colitis with complication, unspecified [...] on file Legal Sex Female 9:30 AM LABOR ECONOMICS PROFESSOR Gender Identity Female 04/05/2022 6:17 PM [...] AM CDT 10/10/2022 12:04 PM CDT Narrative [facility] CORE LAB - 10/10/2022 1:25 PM CDT Current interpretive data was last updated June 29, 2021. Mariela Denton MD LAB BLOOD ORDERABLE S Final Result Performing Organization Address City/[facility] Co de Phone Number [facility] CORE LAB [facility] [...] ORDERABLE S Final Result Performing Organization Address [facility] Co de Phone Number [facility] CORE [facility] [...] documented as of this encounter Care Teams Genetics Physician Relationship Specialty Start Date End Date Servando Torre MD [address] [facility] [address] [place] [address] PCP - General Family Medicine 06/19/22 Mariela Denton MD [address] [place] [address] Referring Physician Gastroenterology 06/19/22 Lexis Barroso OD [address] [place] [address] Professor Of Oceanography 09/19/22 documented as of this encounter
--- OUTSIDE RECORDS SUMMARY | 2024-08-18 11:07 | XMS_ITS | Encounter Summary ---
Author Organization [facility] Address [address] [place] [address] Care Team Providers Care Operations Engineer Name Role Phone Servando Torre MD Primary Care Provider Mariela Denton MD Unavailable [phone] [phone] Encounter Details Date Type Department Care Team (Late st Contact Info) Description 06/23/2022 Orders Only [facility] Primary Care at [address] [address] Servando Torre MD [address] [place] [address] [address] [place] [address] Chronic left shoulder pain (Primary [...] on file Legal Sex Female 9:30 AM CLIENT COORDINATOR Gender Identity Female 04/05/2022 6:17 PM CDT Sexual Orientation Straight 04/05/2022 6: 17 PM CDT documented as of this encounter Plan of Treatment Not on file documented as of this encounter Visit Diagnoses Diagnosis Chronic left shoulder pain- Primary Pain in joint, shoulder region documented in this encounter Care Teams Operations Engineer Relationship Specialty Start Date End Date Servando Torre MD [address] [facility] [address] [place] [address] PCP - General Family Medicine 06/19/22 Mariela Denton MD [address] [place] [address] Referring Physician Gastroenterology 06/19/22 documented as of this encounter
--- OUTSIDE RECORDS SUMMARY | 2024-08-18 11:07 | XMS_ITS | Encounter Summary ---
Author Organization [facility] Address [address] [place] [address] Care Team Providers Care Sail Lay Out Worker Name Role Phone Servando Torre MD Primary Care Provider [phone]- [phone] Mariela Denton MD Unavailable [phone] [phone] Reason for Visit * Diagnostic Imaging (Routine) - Closed Specialty Diagnoses / Procedures Referred By Angel t Referred To Contact Diagnoses Chronic left shoulder pain Procedures XR Shoulder Left 2+ Vw Servando Torre MD [address] [place] [address] Phone: tel: fax: [facility] Referral ID Status Reason Start Date Expiration Date Visits Re quested Visits Authorized [id number] Closed 06/19/2022 07/19/2023 1 1 Encounter Details Date Type Department Care Team (Latest Contact Info) Description 06/19/2022 4:15 PM TEMPER MILL ROLLER Ancillary Procedure [facility] Imaging at [address] [id number] Chronic left shoulder pain Social History Tobacco [...] on file Legal Sex Female 9:30 AM TEMPER MILL ROLLER Gender Identity Female 04/05/2022 6:17 PM CDT Sexual Orientation Straight 04/05/2022 6: 17 PM CDT documented as of this encounter Plan of Treatment Not on file documented as of this encounter Procedures Procedure Name Priority Date/Time Associated Diagnosis Comments XR SHOULDER LEFT 2 OR MORE VIEWS Schedule Routine, Read Routine (OP Routine) 06/19/2022 4:16 PM TEMPER MILL ROLLER Chronic left shoulder pain documented in this encounter Results * XR Shoulder Left 2+ Vw (06/19/2022 4:16 PM TEMPER MILL ROLLER) Anatomical Region Laterality Modality Upper Extremities, Shoulder Left Digi hortensia Radiography 06/20/2022 6:31 PM TEMPER MILL ROLLER Narrative 06/20/2022 6:32 PM TEMPER MILL ROLLER EXAM DESCRIPTION: ?? XR SHOULDER LEFT 2 [...] D: ??06/20/2022 6:32 PM T: Report ID: [id number] Reading Location: ??[id number] Procedure Note Kailey Layton MD - 06/20/2022 [...] Kailey Layton M.D. TW T: Report ID: [id number] Reading Location: [place] [address] us Servando Torre MD IMG XR PROCEDURES Final Res ult documented in this encounter Visit Diagnoses Diagnosis Chronic left shoulder pain Pain in joint, shoulder region documented in this encounter Care Teams Sail Lay Out Worker Relationship Specialty Start Date End Date Servando Torre MD [address] [facility] [address] [place] [address] PCP - General Family Medicine 06/19/22 Mariela Denton MD [address] [place] [address] Referring Physician Gastroenterology 06/19/22 documented as of this encounter
--- OUTSIDE RECORDS SUMMARY | 2024-08-18 11:07 | XMS_ITS | Encounter Summary ---
Author Organization [facility] Address [address] [place] [address] Care Team Providers Care Community Music Therapist Name Role Phone Servando Torre MD Primary Care Provider Mariela Denton MD Unavailable [phone] [phone] Encounter Details Date Type Department Care Team (Latest Contact Info) Description 07/03/2022 4:26 PM FLIGHT FOLLOWER - 07/03/2022 11:59 PM FLIGHT FOLLOWER Hospital Encounter [facility] [address] [place], [place] [id number] Cough, unspecified type; Positive self-administered antigen test [...] on file Legal Sex Female 9:30 AM FLIGHT FOLLOWER Gender Identity Female 04/05/2022 6:17 PM CDT [...] - 07/03/2022 11:59 PM CST Viewed on [employer] HT FOLLOWER * Result Encounter Note - Tammy Meehan NP - 07/03/2022 7:58 PM CST Please notify patient of positive COVID-19 test. Patient should rest, stay hydrated, and take [id number] medications as needed. Per CDC guidelines, patient [...] doctor or in the ER if needed. HT FOLLOWER documented in this encounter Plan of Treatment Not on file documented as of this encounter Procedures Procedure Name Priority Date/Time Associated Diagnosis Comments INFLUENZA A/B, RSV, AND COVID-19 PCR Routine 07/03/2022 4:26 PM FLIGHT FOLLOWER Cough, unspecified type Positive self-administered antigen test for COVID-19 documented in this encounter Results * (ABNORMAL) Influenza A/B, RSV, and COVID-19 PCR Nasopharyngeal (07/03/2022 4:26 PM FLIGHT FOLLOWER) COVID-19 RNA Positive(A) Negative [facility] Influenza A RNA Negative Negative [facility] Influenza B RNA Negative Negative [facility] RSV RNA Negative Negative [facility] Comment: Interpretive data: This test is performed using the [employer] Xpert Xpress CoV-2/Flu/RSV plus assay. This is [...] revised 2021. Nasopharyngeal 07/03/2022 4: 26 PM FLIGHT FOLLOWER 07/03/2022 6:41 PM FLIGHT FOLLOWER Narrative [facility] - 07/03/2022 7:57 PM FLIGHT FOLLOWER Is the Patient experiencing symptoms consistent with COVID?->Yes Date of Symptom Onset->06/25/22 Reason for testing?->Symptomatic Known exposure to confirmed or suspected COVID-19 case?->No Is the patient experiencing any symptoms consistent with COVID (eg. Fever, cough, shortness of breath)?->Yes What is the reason for testing?->Symptoms of COVID-19 in low-risk group (Batched) us Pricilla Olguin NP LAB MICROBIOLOGY - GENERAL [place]DE [place] Final Result AILEEN [address] Department [place] [address] documented in this encounter Visit Diagnoses Diagnosis Cough, unspecified type Positive self-administered antigen test for COVID-19 documented in this encounter Additional Health Concerns Infection Onset Date Last Indicated Resolved Time COVID: Suspected 07/03/2022 07/03/2022 07/03/2022 7:57 PM FLIGHT FOLLOWER COVID19 07/03/2022 07/03/2022 07/13/2022 3:05 AM FLIGHT FOLLOWER documented as of this encounter Care Teams Community Music Therapist Relationship Specialty Start Date End Date Servando Torre MD [address] [facility] [address] [place] [address] PCP - General Family Medicine 06/19/22 Mariela Denton MD [address] [place] [address] Referring Physician Gastroenterology 06/19/22 documented as of this encounter
--- OUTSIDE RECORDS SUMMARY | 2024-08-18 11:07 | XMS_ITS | Encounter Summary ---
Author Organization [facility] Address [address] [place] [address] Phone Care Team Providers Care Poured Pipe Maker Name Role Phone Servando Torre MD Primary Care Provider [phone]- [phone] Mariela Denton MD Unavailable [phone] [phone] Lexis Barroso OD Unavailable +1- [phone] Encounter Details Date Type Department Care Team (Late st Contact Info) Description 10/14/2022 Orders Only [facility] Gastroenterology [address] 12[address] [place] [address] [place] [phone] Lexis Renteria RN Skin tag (Primary Dx) [...] on file Legal Sex Female 9:30 AM PARKING ENFORCEMENT SPECIALIST Gender Identity Female 04/05/2022 6:17 PM CDT Sexual Orientation Straight 04/05/2022 6: 17 PM CDT documented as of this encounter Progress Notes * Lexis Renteria RN - 10/14/2022 8:33 AM CDT Referral along with office note, insurance info and face sheet has been faxed to [facility] at [phone]. -------Fax Transmission Report------- To: Recipient at [phone] Subject: Joseph Allen referral (secure) Result: The transmission was successful. Explanation: All Pages Ok Pages Sent: 16 Connect Time: 14 minutes, 10 seconds Transmit Time: 10/14/2022 08:38 Transfer Rate: 9600 Status Code: 0000 Retry Count: 0 Job Id: [id number] Unique Id: [id number] Fax Line: 22 Fax Housekeeping And Laundry Team Leader: [id number] documented in this encounter Plan of Treatment Not on file documented as of this encounter Visit Diagnoses Diagnosis Skin tag- Primary Unspecified hypertrophic and atrophic condition of skin documented in this encounter Orders Procedures Count Last Ordered Date First Orde red Date ONCBCN OUTPATIENT FACILITY ORDERS 1 023 documented in this encounter Care Teams Poured Pipe Maker Relationship Specialty Start Date End Date Servando Torre MD [facility] [place] [address] [address] PCP - General Family Medicine 06/19/22 Mariela Denton MD [address] [place] [address] Referring Physician Gastroenterology 06/19/22 Lexis Barroso OD [address], [place] [address] Soaking Pits Supervisor 09/19/22 documented as of this encounter
--- OUTSIDE RECORDS SUMMARY | 2024-08-18 11:07 | XMS_ITS | Encounter Summary ---
Author Organization [facility] Address [address] [facility] [address] [place] [address] Care Team Providers Care Cco Name Role Phone Servando Torre MD Primary Care Provider Mariela Denton MD Unavailable [phone] Reason for Referral * Diagnostic Imaging (Routine) - Closed Specialty Diagnoses / Procedures Referred By Contac t Referred To Contact Diagnoses Chronic left shoulder pain Procedures XR Shoulder Left 2+ Vw Servando Torre MD [address] [facility] [address] [place] [address] Phone: tel: fax: [facility] Referral ID Status Reason Start Date Expiration Date Visits Re quested Visits Authorized [id number] Closed 06/19/2022 07/19/2023 1 1 E BUSINESS PROJECT MANAGER Encounter Details Date Type Department Care Team (Late st Contact Info) Description 06/19/2022 Orders Only [facility] Primary Care at [address] [address] Servando Torre MD [address] [facility] [address] [place] [address] Chronic left shoulder pain (Primary [...] on file Legal Sex Female 9:30 AM E BUSINESS PROJECT MANAGER Gender Identity Female 04/05/2022 6:17 PM CDT Sexual Orientation Straight 04/05/2022 6: 17 PM CDT documented as of this encounter Plan of Treatment Not on file documented as of this encounter Results * XR Shoulder Left 2+ Vw (06/19/2022 4:16 PM E BUSINESS PROJECT MANAGER) Anatomical Region Laterality Modality Upper Extremities, Shoulder Left Digi hortensia Radiography 06/20/2022 6:31 PM E BUSINESS PROJECT MANAGER Narrative 06/20/2022 6:32 PM E BUSINESS PROJECT MANAGER EXAM DESCRIPTION: ?? XR SHOULDER LEFT 2 [...] D: ??06/20/2022 6:32 PM T: Report ID: [id number] Reading Location: ??[id number] Procedure Note Kailey Layton MD - 06/20/2022 [...] Kailey Layton M.D. TW T: Report ID: [id number] Reading Location: [id number] us Servando Torre MD IMG XR PROCEDURES Final Res ult documented in this encounter Visit Diagnoses Diagnosis Chronic left shoulder pain- Primary Pain in joint, shoulder region Chronic left shoulder pain Pain in joint, shoulder region documented in this encounter Care Teams Cco Relationship Specialty Start Date End Date Servando Torre MD [address] [facility] [address] [place] [address] PCP - General Family Medicine 06/19/22 Mariela Denton MD [address] [place] [address] Referring Physician Gastroenterology 06/19/22 documented as of this encounter
--- OUTSIDE RECORDS SUMMARY | 2024-08-18 11:07 | XMS_ITS | Encounter Summary ---
Author Organization [facility] Address [address] [facility] [address] [place] [address] Care Team Providers Care Packaging Coordinator Name Role Phone Servando Torre MD Primary Care Provider Mariela Denton MD Unavailable [phone] [phone] Reason for Visit * Reason Comments Cough Cough ongoing since positive covid on 06/25 Encounter Details Date Type Department Care Team (Late st Contact Info) Description 07/03/2022 4:00 PM SHOP CLERK Office Visit [facility] Outpatient Center [address] [address] Pricilla Olguin NP [address] [place] [address] [address] [place] [address] Cough, unspecified type (Primary Dx); [...] on file Legal Sex Female 9:30 AM SHOP CLERK Gender Identity Female 04/05/2022 6:17 PM CDT Sexual Orientation Straight 04/05/2022 6: 17 PM CDT documented as of this encounter Last Filed Vital Signs Vital Sign Reading Time Taken Comments Blood Pressure 148/88 07/03/2022 4:09 PM SHOP CLERK Pulse 68 07/03/2022 4:09 PM SHOP CLERK Temperature 37 ??C (98.6 ??F) 07/03/2022 4:09 PM SHOP CLERK Respiratory Rate 18 07/03/2022 4:09 PM SHOP CLERK Oxygen Saturation 98% 07/03/2022 4:31 PM SHOP CLERK Inhaled Oxygen Concentration - - Weight 70.8 kg (156 lb) 07/03/2022 4:09 PM SHOP CLERK Height 157.5 cm (5' 2 ) 07/03/2022 4:09 PM SHOP CLERK Body Mass Index 28.53 07/03/2022 4:09 PM SHOP CLERK documented in this encounter Patient Instructions * Patient Instructions* Pricilla Olguin NP - 07/03/2022 4:00 PM SHOP CLERK Self-care: Rest as much as possible. Slowly [...] yourself from other people and pets in [facility]: Do not go to work, school, or [...] Quarantine for those exposed to COVID-19 Additionally, [facility] is updating the recommended quarantine period [...] to stay home until your fever resolves. CLERK documented in this encounter Ordered Prescriptions Prescription [...] tested due to 3 other people at [facility] coming down with COVID. Patient states she [...] tenderness or frontal sinus tenderness. Mouth/Throat: Lips: [place]. Mouth: Mucous membranes are moist. Tongue: Tongue [...] yourself from other people and pets in [facility]: Do not go to work, school, or [...] know about COVID-19 and the Omicron variant, [facility] is shortening the recommended time for [...] Quarantine for those exposed to COVID-19 Additionally, [facility] is updating the recommended quarantine period [...] ask questions, questions answered. Pricilla Olguin NP CLERK documented in this encounter Plan of Treatment Not on file documented as of this encounter Results * (ABNORMAL) Influenza A/B, RSV, and COVID-19 PCR Nasopharyngeal (07/03/2022 4:26 PM SHOP CLERK) Pathologist [facility] COVID-19 RNA Positive(A) Negative [facility] Influenza A RNA Negative Negative [facility] Influenza B RNA Negative Negative [facility] RSV RNA Negative Negative [facility] Comment: Interpretive data: This test is performed using the [employer] Xpert Xpress CoV-2/Flu/RSV plus assay. This is [...] revised 2021. Nasopharyngeal 07/03/2022 4: 26 PM SHOP CLERK 07/03/2022 6:41 PM SHOP CLERK Narrative [facility] - 07/03/2022 7:57 PM SHOP CLERK Is the Patient experiencing symptoms consistent with COVID?->Yes Date of Symptom Onset->06/25/22 Reason for testing?->Symptomatic Known exposure to confirmed or suspected COVID-19 case?->No Is the patient experiencing any symptoms consistent with COVID (eg. Fever, cough, shortness of breath)?->Yes What is the reason for testing?->Symptoms of COVID-19 in low-risk group (Batched) Pricilla Olguin NP LAB MICROBIOLOGY [facility] Final Result AILEEN [address] Department [place] [address] documented in this encounter Visit Diagnoses Diagnosis Cough, unspecified type- Primary Positive self-administered antigen test for COVID-19 Cough, unspecified type Positive self-administered antigen test for COVID-19 documented in this encounter Additional Health Concerns Infection Onset Date Last Indicated Resolved Time COVID: Suspected 07/03/2022 07/03/2022 07/03/2022 7:57 PM SHOP CLERK documented as of this encounter Care Teams Packaging Coordinator Relationship Specialty Start Date End Date Servando Torre MD [address] [address] PCP - General Family Medicine 06/19/22 Mariela Denton MD [address] [place] [address] Referring Physician Gastroenterology 06/19/22 documented as of this encounter
--- OUTSIDE RECORDS SUMMARY | 2024-08-18 11:08 | XMS_ITS | Encounter Summary ---
Author Organization [facility] Address [address] [place] [address] Phone Care Team Providers Care Sorter Laundry Articles Name Role Phone Jared Abrams MD Primary Care Provider [phone] Encounter Details Date Type Department Care Team (Late st Contact Info) Description 05/30/2022 Orders Only [facility] Gastroenterology [address] [facility] 12th [place] [address] [place] [address] Coty Sorensen Social History Tobacco Use Types Packs/Day Years Used Date Smoking Tobacco: Never Comments Unknown Sex and Gender Information Value Date Recorded Sex Assigned at Not on file Legal Sex Female 9:30 AM PIZZA CHEF Gender Identity Female 04/05/2022 6:17 PM CDT Sexual Orientation Straight 04/05/2022 6: 17 PM CDT documented as of this encounter Plan of Treatment Not on file documented as of this encounter Visit Diagnoses Not on filedocumented in this encounter Care Teams Sorter Laundry Articles Relationship Specialty Start Date End Date Jared Abrams MD [address] [place] [address] PCP - General Internal Medicine 05/30/22 06/18/22 documented as of this encounter
--- OUTSIDE RECORDS SUMMARY | 2024-08-18 11:08 | XMS_ITS | Encounter Summary ---
Author Organization [facility] Address [address] [place] [address] Phone Care Team Providers Care Electromechanical Equipment Tester Name Role Phone Unavailable Primary Care Provider Unavailabl e Reason for Visit * Reason Onset Date Comments Normal TPMT from 05/14/2022 05/20/2022 Encounter Details Date Type Department Care Team (Late st Contact Info) Description 05/20/2022 Documentation [facility] Gastroenterology [address] [facility] [address]th [place] [address] [place] [address] Janice Baez LPN Normal TPMT from 05/14/2022 Social History Tobacco Use Types Packs/Day Years Used Date Smoking Tobacco: Never Comments Unknown Sex and Gender Information Value Date Recorded Sex Assigned at Not on file Legal Sex Female 9:30 AM SHEAR SETTER Gender Identity Female 04/05/2022 6:17 PM [...]
--- OUTSIDE RECORDS SUMMARY | 2024-08-18 11:08 | XMS_ITS | Encounter Summary ---
Author Organization [facility] Address [address] [place] [address] Phone Care Team Providers Care Motorcoach Operator Name Role Phone Jared Abrams MD Primary Care Provider [phone] Servando Torre MD Primary Care Provider [phone] Mariela Denton MD Unavailable [phone] Reason for Visit * Reason Onset Date Comments Submitting for Entyvio 06/03/2022 Encounter Details Date Type Department Care Team (Late st Contact Info) Description 06/03/2022 Telephone [facility] Gastroenterology [address] [facility] [address]th [place] [address] [place] [address] Janice Baez LPN Submitting for [...] on file Legal Sex Female 9:30 AM COSMETICIAN Gender Identity Female 04/05/2022 6:17 PM CDT Sexual Orientation Straight 04/05/2022 6: 17 PM CDT documented as of this encounter Miscellaneous Notes * Telephone Encounter - Janice Baez LPN - 06/18/2022 12:03 PM CST 06/18/2022: Per note from Jaqueline BORREGO on 06/10/2022, pt requested that infusion therapy (new start Entyvio) be arranged for [facility] in [place], [place]. Approval was obtained by pre-cert team for therapy. Infusion auth, infusion order, IOV note, and demographics all faxed to infusion center at . Jaqueline BORREGO cc'd so that she is aware. Asked infusion center to get patient scheduled to start therapy SHIRA. Follow up [employer] portal msg sent to pt notifying her of approval. Advisedpatient to reach out to infusion center next week if she hasn't heard from them by then re: scheduling. Pt provided with phone number for infusion center. -------Fax Transmission Report------- To: Recipient at [phone] Subject: Re: Joseph Allen - Entyvio Referral [Secure] Result: The transmission was successful. Explanation: All Pages Ok Pages Sent: 16 Connect Time: 11 minutes, 54 seconds Transmit Time: 06/18/2022 12:05 Transfer Rate: 9600 Status Code: 0000 Retry Count: 0 Job Id: [id number] Unique Id: [id number] Fax Line: 16 Fax Director Of Integrated Marketing: [id number] 07/03/2022: Pt is scheduled to begin Entyvio therapy tomorrow 07/04/2022. ETICIAN ETICIAN ETICIAN * Telephone Encounter - Janice Baez LPN - 06/05/2022 9:55 AM CST Have not received return call from Lisa regarding site of care option ([facility]) so we have not been able to proceed with submitting for Entyvio. Pt's dgtr Aby (proxy) has been communicating with our office via pt's [employer] portal. Msg sent to Lsia/Aby this morning to discuss this site of care option and whether this location was OK for Entyvio therapy. Waiting to hear back from patient/dgtr to figure out whether we can proceed with this referral. ETICIAN * Telephone Encounter - Janice Baez LPN - 06/03/2022 2:11 PM CST Pt established care with Dr. Denton on 05/30/2022 at which time starting Entyvio therapy for UC was discussed. Pt lives in [place], [place], I was able to locate a facility in [facility] ([facility]) which does have an infusion center. Call placed to infusion center this afternoon to find out about their referral process and whether they administer Entyvio at their center. Spoke with staff member in surgery department (which acts as their infusion center), confirmed that they doadminister Entyvio at their center, do accept [facility] order and can have their medical record clerk co-signif the patient does not have a PCP with privileges at their hospital, they will accept our [facility] order (no addt'l order forms), we are required to obtain auth, and they do draw labs. The staff member that I spoke with was unable to provide me with their Tax ID and NPI numbers and transferred me to Vannessa (administrative support associate) who likely would have this information. Unable [...] Direct extension to surgery department P: ext [phone]. Per review of chart, pt has Medicare [...] facility which can administer this therapy in [place] and providing facility name - informed pt that I wanted to touch base with her to verify whether this facility would work for her. Also explained to patient that I was hoping to verify her insurance coverage. Left my direct office number on pt's home voicemail and asked her to give me a call back at her convenience. ETICIAN documented in this encounter Plan of Treatment Not on file documented as of this encounter Visit Diagnoses Not on filedocumented in this encounter Care Teams Motorcoach Operator Relationship Specialty Start Date End Date Jared Abrams MD [facility] [place] [address] PCP - General Internal Medicine 05/30/22 06/18/22 Servando Torre MD [facility] [address] [place] [address] PCP - General Family Medicine 06/19/22 Mariela Denton MD [address] [place] [address] Referring Physician Gastroenterology 06/19/22 documented as of this encounter
--- OUTSIDE RECORDS SUMMARY | 2024-08-18 11:08 | XMS_ITS | Encounter Summary ---
Author Organization [facility] Address [address] [place] [address] Care Team Providers Care Blower Room Attendant Name Role Phone Jared Abrams MD Primary Care Provider [phone] Encounter Details Date Type Department Care Team (Late st Contact Info) Description 05/30/2022 1:30 PM CDT Immunization [facility] [address] [address] Encounter for vaccination (Primary Dx) Social History Tobacco Use Types Packs/Day Years Used Date Smoking Tobacco: Never Comments Unknown Sex and Gender Information Value Date Recorded Sex Assigned at Not on file Legal Sex Female 9:30 AM AUTO TRAVEL COUNSELOR Gender Identity Female 04/05/2022 6:17 PM [...] 05/30/2022 documented in this encounter Care Teams Blower Room Attendant Relationship Specialty Start Date End Date Jared Abrams MD [address] [place] [address] PCP - General Internal Medicine 05/30/22 06/18/22 documented as of this encounter
--- OUTSIDE RECORDS SUMMARY | 2024-08-18 11:08 | XMS_ITS | Encounter Summary ---
Author Organization [facility] Facility Care Team Providers Care Knitted Garment Finisher Name Role Phone Unavailable Primary Care Provider Unavailabl e Encounter Details Date Type Department Care Team (Late st Contact Info) Description 10/04/2013 - 10/04/2013 11:59 PM CDT Hospital Encounter [facility] Rick Mcnulty MD [address] [facility] [address] [place] [address] Stress fracture of other bone; Other orthopedic aftercare; Localized osteoarthrosis, lower leg Social History Tobacco Use Types Packs/Day Years Used Date Smoking Tobacco: Never Comments Unknown Sex and Gender Information Value Date Recorded Sex Assigned at Not on file Legal Sex Female 9:30 AM TENNIS COACH Gender Identity Female 04/05/2022 6:17 PM CDT [...] agrees with it. ACC# ??Date Time ??Exam [id number] Oct 04, 2013 15:15:00 [id number] Femur 2 views L EXAMINATION: ?Left femur [...] agrees with it. ACC# Date Time Exam [id number] Oct 04, 2013 15:15:00 [id number] Femur 2 views L EXAMINATION: Left femur [...]
--- OUTSIDE RECORDS SUMMARY | 2024-08-18 11:08 | XMS_ITS | Encounter Summary ---
Author Organization [facility] Address [address] [place] [address] Phone Care Team Providers Care Candy Maker Name Role Phone Unavailable Primary Care Provider Unavailabl e Reason for Visit * Reason Onset Date Comments New Patient Appointment 05/06/2022 Encounter Details Date Type Department Care Team (Late st Contact Info) Description 05/06/2022 Documentation [facility] Gastroenterology [address] [facility] 12th [place] [address] [place] [address] Coty Sorensen New Patient Appointment Social History Tobacco Use Types Packs/Day Years Used Date Smoking Tobacco: Never Comments Unknown Sex and Gender Information Value Date Recorded Sex Assigned at Not on file Legal Sex Female 9:30 AM SUSPENDER MAKER Gender Identity Female 04/05/2022 6:17 PM [...]
--- OUTSIDE RECORDS SUMMARY | 2024-08-18 11:08 | XMS_ITS | Encounter Summary ---
Author Organization [facility] [employer] [facility] Address [address] [place] [address] Phone Care Team Providers Care Washer Repairman Name Role Phone Unavailable Primary Care Provider Unavailabl e Encounter Details Date Type Department Care Team (Late st Contact Info) Description 05/14/2022 Orders Only [facility] Scanning, Provider Social History Tobacco Use Types Packs/Day Years Used Date Smoking Tobacco: Never Comments Unknown Sex and Gender Information Value Date Recorded Sex Assigned at Not on file Legal Sex Female 9:30 AM AUTOMATED WEAVER Gender Identity Female 04/05/2022 6:17 PM [...]
--- OUTSIDE RECORDS SUMMARY | 2024-08-18 11:08 | XMS_ITS | Encounter Summary ---
Author Organization [facility] Facility Care Team Providers Care Industrial Chemicals Supervisor Name Role Phone Unavailable Primary Care Provider Unavailabl e Encounter Details Date Type Department Care Team (Late st Contact Info) Description 10/05/2014 - 10/05/2014 11:59 PM CDT Hospital Encounter [facility] Rick Mcnulty MD [address] [facility] [address] [place] [address] Social History Tobacco Use Types Packs/Day Years Used Date Smoking Tobacco: Never Comments Unknown Sex and Gender Information Value Date Recorded Sex Assigned at Not on file Legal Sex Female 9:30 AM ACQUISITION PROFESSIONAL Gender Identity Female 04/05/2022 6:17 PM [...] M.D. FINAL REPORT ACC# ??Date Time ??Exam [id number] Oct 05, 2014 17:02:00 [id number] [facility] Plain Film Reference [id number] Oct 05, 2014 17:02:00 [id number] [facility] Plain Film Reference EXAMINATION: ?Images For Reference Purposes Only IMPRESSION: ?These images have been uploaded for Reference purposes only. ??There will be no separate report generated by a [facility] Radiologist. Requested By: Dictated By: ?? VENITA FINK M.D. ??on Oct 05 2014 ??5:06P This document has been electronically signed by: VENITA FINK M.D. on Oct 05 2014 ??5:06P [id number] Procedure Note Provider, MD Silvestre - 11/22/2016 VENITA FINK M.D. FINAL REPORT ACC# Date Time Exam [id number] Oct 05, 2014 17:02:00 [id number] [facility] Plain Film Reference [id number] Oct 05, 2014 17:02:00 [id number] [facility] Plain Film Reference EXAMINATION: Images For Reference Purposes Only IMPRESSION: These images have been uploaded for Reference purposes only. There will be no separate report generated by a [facility] Radiologist. Requested By: Dictated By: VENITA FINK M.D. on Oct 05 2014 5:06P This document has been electronically signed by: VENITA FINK M.D. on Oct 05 2014 5:06P [id number] us Historical Provider MD GRAHAM XR PROCEDURES Final R esult * XR Interpretation Of Outside Films (10/05/2014 5:02 PM CDT) Anatomical Region Laterality Modality N/A Radiographic Keyanna ging 10/05/2014 5:02 PM CDT Narrative 10/05/2014 5:06 PM CDT VENITA FINK M.D. FINAL REPORT ACC# ??Date Time ??Exam [id number] Oct 05, 2014 17:02:00 [id number] [facility] Plain Film Reference [id number] Oct 05, 2014 17:02:00 [id number] [facility] Plain Film Reference EXAMINATION: ?Images For Reference Purposes Only IMPRESSION: ?These images have been uploaded for Reference purposes only. ??There will be no separate report generated by a [facility] Radiologist. Requested By: Dictated By: ?? VENITA FINK M.D. ??on Oct 05 2014 ??5:06P This document has been electronically signed by: VENITA FINK M.D. on Oct 05 2014 ??5:06P [id number] Procedure Note Provider, Silvestre, - 11/22/2016 VENITA FINK M.D. FINAL REPORT ACC# Date Time Exam [id number] Oct 05, 2014 17:02:00 [id number] [facility] Plain Film Reference [id number] Oct 05, 2014 17:02:00 [id number] [facility] Plain Film Reference EXAMINATION: Images For Reference Purposes Only IMPRESSION: These images have been uploaded for Reference purposes only. There will be no separate report generated by a [facility] Radiologist. Requested By: Dictated By: VENITA FINK M.D. on Oct 05 2014 5:06P This document has been electronically signed by: VENITA FINK M.D. on Oct 05 2014 5:06P [id number] us Historical Provider IMG XR PROCEDURES Final R esult documented in this encounter Visit Diagnoses Not on filedocumented in this encounter
--- OUTSIDE RECORDS SUMMARY | 2024-08-18 11:08 | XMS_ITS | Encounter Summary ---
Author Organization [facility] Address [address] [place] [address] Phone Care Team Providers Care Viscosity Inspector Name Role Phone Unavailable Primary Care Provider Unavailabl e Reason for Visit * Reason Onset Date Comments Lab Order - TPMT 05/07/2022 Encounter Details Date Type Department Care Team (Late st Contact Info) Description 05/07/2022 Documentation [facility] Gastroenterology [address] [facility] 12th [place] [address] [place] [address] Coty Sorensen Lab Order - TPMT Social History Tobacco Use Types Packs/Day Years Used Date Smoking Tobacco: Never Comments Unknown Sex and Gender Information Value Date Recorded Sex Assigned at Not on file Legal Sex Female 9:30 AM NEWS BROADCASTER Gender Identity Female 04/05/2022 6:17 PM CDT Sexual Orientation Straight 04/05/2022 6: 17 PM CDT documented as of this encounter Progress Notes * Coty Sorensen - 05/07/2022 12:59 PM CDT Faxed lab order for TPMT to [facility] (f)[phone], pt will go in the next couple [...]
--- OUTSIDE RECORDS SUMMARY | 2024-08-18 11:08 | XMS_ITS | Encounter Summary ---
Author Organization [facility] Address [address] [place] [address] Phone Care Team Providers Care Shrub Planter Name Role Phone Jared Abrams MD Primary Care Provider [phone] Encounter Details Date Type Department Care Team (Late st Contact Info) Description 05/31/2022 Orders Only [facility] Gastroenterology [address] [facility] 12th [place] [address] [place] [address] Janice Baez LPN Low serum vitamin D (Primary Dx) Social History Tobacco Use Types Packs/Day Years Used Date Smoking Tobacco: Never Comments Unknown Sex and Gender Information Value Date Recorded Sex Assigned at Not on file Legal Sex Female 9:30 AM SUPERVISOR FILTER ASSEMBLY Gender Identity Female 04/05/2022 6:17 PM CDT [...] Rx sent in to pt's local pharmacy. Shipping Company portal msg sent to pt. documented in this encounter Plan of Treatment Not on file documented as of this encounter Visit Diagnoses Diagnosis Low serum vitamin D- Primary documented in this encounter Care Teams Shrub Planter Relationship Specialty Start Date End Date Jared Abrams MD [address] [place] [address] PCP - General Internal Medicine 05/30/22 06/18/22 documented as of this encounter
--- OUTSIDE RECORDS SUMMARY | 2024-08-18 11:08 | XMS_ITS | Encounter Summary ---
Author Organization [facility] Address [address] [place] [address] Phone Care Team Providers Care Director Of Rehabilitation And Wellness Name Role Phone Jared Abrams MD Primary Care Provider [phone] Encounter Details Date Type Department Care Team (Late st Contact Info) Description 06/10/2022 Orders Only [facility] Gastroenterology [address] [facility] 12th [place] [address] [place] [address] Lexis Renteria, RN Ulcerative colitis with complication, [...] file Legal Sex Female 9:30 AM SENIOR INFORMATION DEVELOPER Gender Identity Female 04/05/2022 6:17 PM CDT Sexual Orientation Straight 04/05/2022 6: 17 PM CDT documented as of this encounter Progress Notes * Lexis Renteria RN - 06/10/2022 2:01 PM CST Patient would prefer to receive her Entyvio infusions at [facility] in [place]. [facility] therapy planentered (under procedures tab) and routed to pre-cert so that they can obtain the auth. Patient informed and set a reminder to f/u OR INFORMATION DEVELOPER * Marga Pradhan CPhT - 06/10/2022 2:01 PM CST SPECIALTY DRUG INFUSION AUTHORIZATION Patient: Lisa Allen : 1945 Ordering Physician: WILLIAM SHORT NPI #: [id number] DRUG NAME: ENTYVIO DOSE/FREQUENCY: 300MG 0,2,6WEEKS Q 8 WEEKS CPT/ADMIN CODE(S): J3380, 82479, 54760 DX CODE(S): K51.919 LOCATION: [facility] Primary Insurance: MEDICARE ID # [id number] Group # Ins Phone # E-VERIFIED AUTH [...] #: DATE SUBMITTED: PRE-D OUTCOME: Secondary Insurance: [facility] SUPP PLAN ID # [id number] Group # [id number] Ins AUTH #: NOT REQ Effective Date: [...] PRE-D FAX #: DATE SUBMITTED: PRE-D OUTCOME: OR INFORMATION DEVELOPER documented in this encounter Plan of Treatment Not on file documented as of this encounter Visit Diagnoses Diagnosis Ulcerative colitis with complication, unspecified location (HCC)- Primary documented in this encounter Orders Procedures Count Last Ordered Date First Orde red Date ONCBCN OUTPATIENT FACILITY ORDERS 1 022 documented in this encounter Care Teams Director Of Rehabilitation And Wellness Relationship Specialty Start Date End Date Jared Abrams MD [address] [place] [address] PCP - General Internal Medicine 05/30/22 06/18/22 documented as of this encounter
--- OUTSIDE RECORDS SUMMARY | 2024-08-18 11:08 | XMS_ITS | Encounter Summary ---
Author Organization [facility] Address [address] [place] [address] Phone Care Team Providers Care Chronometer Adjuster Name Role Phone Jared Abrams MD Primary Care Provider [phone] Encounter Details Date Type Department Care Team (Late st Contact Info) Description 05/30/2022 10:30 AM CDT Office Visit [facility] Gastroenterology [address] [facility] 12th [place] [address] [place] [address] Mariela Denton MD [address] [place] [address] Ulcerative colitis with complication, unspecified location (HCC) (Primary Dx); 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 therapy; High risk medications (not anticoagulants) long-term use Social History Tobacco Use Types Packs/Day Years Used Date Smoking Tobacco: Never Tobacco Cessation:Counseling Given: Not Answered Comments Unknown Sex and Gender Information Value Date Recorded Sex Assigned at Not on file Legal Sex Female 9:30 AM 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 Gender Identity Female 04/05/2022 6:17 PM CDT [...] today Onboarding labs ordered to complete at [facility] today We will submit for Entio [...] OF MEDICINE DIVISION OF GASTROENTEROLOGY Clinic Address: [address] [place] [address], [address], [place] [address] Mailing Address: Sidney Muri, [place] [address] [address] Inflammatory Bowel Disease Initial Office Visit Note [...] 25-OH 29(L) 30 - 80 ng/mL [facility] Blood 05/30/2022 12:3 9 PM CDT 05/30/2022 12:57 PM CDT us Mariela Denton MD LAB BLOOD ORDERABLE S Final Result [facility] [place] [address] * (ABNORMAL) Vitamin B12 (05/30/2022 12:39 PM CDT) Vitamin B12 >2,000(H) 230 - 1,250 pg/mL [facility] Blood 05/30/2022 12:3 9 PM CDT 05/30/2022 12:57 PM CDT us Mariela Denton MD LAB BLOOD ORDERABLE S Final Result Performing Organization Address City/[facility]/ZIP Co de Phone Number [facility] [place] [address] * Iron profile w/ IBC (05/30/2022 12:39 PM CDT) Iron 98 35 - 145 mcg/dL [facility] TIBC 280 250 - 400 mcg/dL [facility] Transferrin saturation 35 20 - 50 % [facility] Blood 05/30/2022 12:3 9 PM CDT 05/30/2022 12:57 PM CDT us Mariela Denton MD LAB BLOOD [place] [address] * Ferritin (05/30/2022 12:39 PM CDT) Ferritin 75 13 - 150 ng/mL [facility] Blood 05/30/2022 12:3 9 PM CDT 05/30/2022 12:57 PM CDT us Mariela Denton MD LAB BLOOD ORDERABLE S Final Result Performing Organization Address City/[facility] Co de Phone Number [facility] [place] [address] * Erythrocyte sedimentation rate (05/30/2022 12:39 PM CDT) [facility] Erythrocyte sedimentation rate 18 1 - 30 mm/hr [facility] Blood 05/30/2022 12:3 9 PM CDT 05/30/2022 12:57 PM CDT us Mariela Denton MD LAB BLOOD ORDERABLE S Final Result Performing Organization Address [facility] Co de Phone Number [facility] Department [place] [address] * CRP (acute phase) (05/30/2022 12:39 PM CDT) [facility] CRP 0.9 <=10.0 mg/L [facility] Blood 05/30/2022 12:3 9 PM CDT 05/30/2022 12:57 PM CDT us Mariela Denton MD LAB BLOOD ORDERABLE S Final Result Performing Organization Address City/[facility] Co de Phone Number [facility] [place] [address] * Comprehensive metabolic panel (05/30/2022 12:39 PM CDT) [facility] Sodium 141 135 - 145 mmol/L [facility] Potassium, pl 4.0 3.3 - 4.9 mmol/L [facility] Chloride 101 97 - 110 mmol/L [facility] CO2 30 22 - 32 mmol/L [facility] Anion gap 10 2 - 15 mmol/L [facility] BUN 11 8 - 25 mg/dL [facility] Creatinine 0.83 0.60 - 1.10 mg/dL [facility] Glucose 100 70 - 199 mg/dL [facility] Comment: Interpretive Data Fasting glucose [...] 2017. Calcium 10.1 8.5 - 10.3 mg/dL [facility] Bilirubin, total 0.4 0.1 - 1.2 mg/dL [facility] Protein, pl 7.4 6.5 - 8.5 g/dL [facility] Albumin 4.3 3.5 - 5.0 g/dL [facility] Alk phos 74 40 - 130 Units/L [facility] ALT 19 7 - 45 Units/L [facility] AST 28 10 - 45 Units/L [facility] Blood 05/30/2022 12:3 9 PM CDT 05/30/2022 12:57 PM CDT us Mariela Denton MD LAB BLOOD ORDERABLE S Final Result [facility] Department [place] [address] * (ABNORMAL) CBC with auto differential (05/30/2022 12:39 PM CDT) WBC 9.3 3.8 - 9.9 K/cumm [facility] Hgb 13.1 11.9 - 15.5 g/dL [facility] Hct 42.4 35.6 - 45.5 % [facility] Plt 332 150 - 400 K/cumm [facility] MPV 9.1 9.1 - 12.3 fL [facility] RBC 4.65 3.90 - 5.20 M/cumm [facility] MCV 91.2 81.3 - 96.4 fL [facility] MCH 28.2 27.1 - 33.3 pg [facility] MCHC 30.9(L) 32.3 - 35.7 g/dL [facility] RDW CV 14.9 11.1 - 14.9 % [facility] RDW SD 49.2(H) 35.7 - 48.1 fL [facility] NRBC abs 0.00 0.00 - 0.01 K/cumm [facility] Blood 05/30/2022 12:3 9 PM CDT 05/30/2022 12:57 PM CDT Mariela Denton MD LAB BLOOD ORDERABLE S Final Result [facility] Department [place] [address] * Thiopurine metabolites (05/30/2022 12:39 PM CDT) 6-TG, bld 293 235 - 450 [facility] Comment:Increased possibilit y of response; optimal dosing. 6-MMP, bld 2999 < or = 5700 [facility] Comment: Decreased risk of hepatotoxicity. ADDITIONAL INFORMATION Testing performed by Liquid Chromatography-Tandem Mass Spectrometry (LC-MS/MS) This test was developed and its performance characteristics determined by [facility] in a manner consistent with CLIA requirements. This test has not been cleared or approved by the U.S. Food and Drug Administration. Test Performed by: [facility] Laboratories - [facility] [address] [place] [address] Government Program Manager: Holden Redman M.D. Ph.D.; CLIA# [id number] Blood 05/30/2022 12:3 9 PM CDT 05/30/2022 1:03 PM CDT us Mariela Denton MD LAB BLOOD ORDERABLE S Final Result [facility] Department [place] [address] documented in this encounter Visit Diagnoses Diagnosis Ulcerative colitis with complication, unspecified location (HCC)- Primary 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 therapy High risk medications (not anticoagulants) long-term use Encounter for long-term (current) use of other medications documented in this encounter Historical Medications * This list may reflect changes made after this encounter. aspirin 81 mg enteric coated tablet Take 1 tablet (81 mg total) by mouth daily 08/27/2023 azaTHIOprine (IMURAN) 100 mg tablet Take 100 mg by mouth daily 06/04/2022 pravastatin (PRAVACHOL) 40 mg tablet Take 40 mg by mouth daily 08/08/[address] (PROTONIX) 40 mg EC tablet Take 40 mg by mouth daily 08/08/2022 multivitamin capsule Take 1 capsule by mouth daily cyanocobalamin (Vitamin B-12) 500 mcg tabletIndications :Prevention [...] 07/02/2022 added in this encounter Care Teams Chronometer Adjuster Relationship Specialty Start Date End Date Jared Abrams MD [address] [place] [id number] PCP - General Internal Medicine 05/30/22 06/18/22 documented as of this encounter
--- OUTSIDE RECORDS SUMMARY | 2024-08-18 11:08 | XMS_ITS | Encounter Summary ---
Author Organization [facility] Address [address] [place] [address] Phone Care Team Providers Care Guard Museum Name Role Phone Jared Abrams MD Primary Care Provider [phone] Encounter Details Date Type Department Care Team (Late st Contact Info) Description 06/04/[address] [facility] Gastroenterology [address] [facility] 12th [place] [address] [place] [id number] Janice Baez LPN Ulcerative colitis with complication, unspecified location (HCC) (Primary Dx) Social History Tobacco Use Types Packs/Day Years Used Date Smoking Tobacco: Never Comments Unknown Sex and Gender Information Value Date Recorded Sex Assigned at Not on file Legal Sex Female 9:30 AM DRY ROLLER Gender Identity Female 04/05/2022 6:17 PM [...] running low with her supply at home. ROLLER documented in this encounter Plan of Treatment Not on file documented as of this encounter Visit Diagnoses Diagnosis Ulcerative colitis with complication, unspecified location (HCC)- Primary documented in this encounter Discontinued Medications Medication Sig Discontinue Reason Start Date End Da te azaTHIOprine (IMURAN) 100 mg tablet Take 100 mg by mouth daily Reorder 06/04/2022 documented as of this encounter Care Teams Guard Museum Relationship Specialty Start Date End Date Jared Abrams MD [address] [place] [id number] PCP - General Internal Medicine 05/30/22 06/18/22 documented as of this encounter
--- OUTSIDE RECORDS SUMMARY | 2024-08-18 11:08 | XMS_ITS | Encounter Summary ---
Author Organization [facility] Healthcare Address [address] [place] [address] Care Team Providers Care Candy Cutter Machine Name Role Phone Jared Abrams MD Primary Care Provider [phone] Encounter Details Date Type Department Care Team (Late st Contact Info) Description 05/30/2022 12:[address] [facility] Advanced Medicine [facility] Advanced [facility] ([facility]) [address] [place] [phone] Ulcerative colitis with complication, unspecified location (HCC); Encounter for alf current azathioprine therapy; High risk medications (not anticoagulants) long-term use Social History Tobacco Use Types Packs/Day Years Used Date Smoking Tobacco: Never Comments Unknown Sex and Gender Information Value Date Recorded Sex Assigned at Not on file Legal Sex Female 9:30 AM PULMONOLOGIST INTENSIVIST Gender Identity Female 04/05/2022 6:17 PM CDT [...] with complication, unspecified location (HCC) Encounter for alf current azathioprine therapy High risk medications (not [...] * (ABNORMAL) eGFR (05/30/2022 12:39 PM CDT) [facility] eGFR 72(L) 90 - 130 mL/min/1. 73 m2 [facility] Comment: Interpretive Data Reference Interval Normal [...] MD LAB BLOOD ORDERABLE S Final Result [facility] One [facility] [place] [address] * Differential, auto (05/30/2022 12:39 PM CDT) Pathologist [facility] Neutrophil abs 6.4 1.7 - 6.5 K/cumm [facility] Imm gran abs 0.1 0.0 - 0.1 K/cumm [facility] Lymphocyte abs 2.2 0.8 - 3.3 K/cumm [facility] Monocyte abs 0.5 0.2 - 0.8 K/cumm [facility] Eosinophil abs 0.2 0.0 - 0.5 K/cumm [facility] Basophil abs 0.0 0.0 - 0.1 K/cumm [facility] Neutrophil pct 68.1 % [facility] Comment: Interpretive Data Percent cell count reference ranges are not reported, since discordance with absolute values may lead to misinterpretation of CBC data. Current Interpretive Data was last revised on 2017. Imm gran pct 0.5 % [facility] Comment: Interpretive Data Percent cell count reference ranges are not reported, since discordance with absolute values may lead to misinterpretation of CBC data. Current Interpretive Data was last revised on 2017. Lymphocyte pct 23.3 % [facility] Comment: Interpretive Data Percent cell count reference ranges are not reported, since discordance with absolute values may lead to misinterpretation of CBC data. Current Interpretive Data was last revised on 2017. Monocyte pct 5.8 % [facility] Comment: Interpretive Data Percent cell count reference ranges are not reported, since discordance with absolute values may lead to misinterpretation of CBC data. Current Interpretive Data was last revised on 2017. Eosinophil pct 1.9 % [facility] Comment: Interpretive Data Percent cell count reference ranges are not reported, since discordance with absolute values may lead to misinterpretation of CBC data. Current Interpretive Data was last revised on 2017. Basophil pct 0.4 % [facility] Comment: Interpretive Data Percent cell count reference ranges are not reported, since discordance with absolute values may lead to misinterpretation of CBC data. Current Interpretive Data was last revised on 2017. Blood 05/30/2022 12:3 9 PM CDT 05/30/2022 12:57 PM CDT us Mariela eDnton MD LAB BLOOD ORDERABLE S Final Result [facility] One [facility] [place] [address] * Thiopurine metabolites (05/30/2022 12:39 PM CDT) 6-TG, bld 293 235 - 450 [facility] Comment:Increased possibilit y of response; optimal dosing. 6-MMP, bld 2999 < or = 5700 [facility] Comment: Decreased risk of hepatotoxicity. ADDITIONAL INFORMATION Testing performed by Liquid Chromatography-Tandem Mass Spectrometry (LC-MS/MS) This test was developed and its performance characteristics determined by [facility] in a manner consistent with CLIA requirements. This test has not been cleared or approved by the U.S. Food and Drug Administration. Test Performed by: [facility] Laboratories - [facility] [address] [place] [address] Medical Payment Poster: Holden Redman M.D. Ph.D.; CLIA# [id number] Blood 05/30/2022 12:3 9 PM CDT 05/30/2022 1:03 PM CDT us Mariela Denton MD LAB BLOOD ORDERABLE S Final Result [facility] One [facility] [place] [address] * (ABNORMAL) CBC with auto differential (05/30/2022 12:39 PM CDT) Pathologist [facility] WBC 9.3 3.8 - 9.9 K/cumm [facility] Hgb 13.1 11.9 - 15.5 g/dL [facility] Hct 42.4 35.6 - 45.5 % [facility] Plt 332 150 - 400 K/cumm [facility] MPV 9.1 9.1 - 12.3 fL [facility] RBC 4.65 3.90 - 5.20 M/cumm [facility] MCV 91.2 81.3 - 96.4 fL [facility] MCH 28.2 27.1 - 33.3 pg [facility] MCHC 30.9(L) 32.3 - 35.7 g/dL [facility] RDW CV 14.9 11.1 - 14.9 % [facility] RDW SD 49.2(H) 35.7 - 48.1 fL [facility] NRBC abs 0.00 0.00 - 0.01 K/cumm [facility] Blood 05/30/2022 12:3 9 PM CDT 05/30/2022 12:57 PM CDT us Mariela Denton MD LAB BLOOD ORDERABLE S Final Result [facility] One [facility] [place] [address] * Comprehensive metabolic panel (05/30/2022 12:39 PM CDT) Sodium 141 135 - 145 mmol/L [facility] Potassium, pl 4.0 3.3 - 4.9 mmol/L [facility] Chloride 101 97 - 110 mmol/L [facility] CO2 30 22 - 32 mmol/L [facility] Anion gap 10 2 - 15 mmol/L [facility] BUN 11 8 - 25 mg/dL [facility] Creatinine 0.83 0.60 - 1.10 mg/dL [facility] Glucose 100 70 - 199 mg/dL [facility] Comment: Interpretive Data Fasting glucose >/= [...] Calcium 10.1 8.5 - 10.3 mg/dL [facility] Bilirubin, total 0.4 0.1 - 1.2 mg/dL [facility] Protein, pl 7.4 6.5 - 8.5 g/dL [facility] Albumin 4.3 3.5 - 5.0 g/dL [facility] Alk phos 74 40 - 130 Units/L [facility] ALT 19 7 - 45 Units/L [facility] AST 28 10 - 45 Units/L [facility] Blood 05/30/2022 12:3 9 PM CDT 05/30/2022 12:57 PM CDT us Mariela Denton MD LAB BLOOD ORDERABLE S Final Result [facility] [place] [address] * CRP (acute phase) (05/30/2022 12:39 PM CDT) CRP 0.9 <=10.0 mg/L [facility] Blood 05/30/2022 12:3 9 PM CDT 05/30/2022 12:57 PM CDT us Mariela Denton MD LAB BLOOD ORDERABLE S Final Result [facility] [place] [address] * Erythrocyte sedimentation rate (05/30/2022 12:39 PM CDT) Erythrocyte sedimentation rate 18 1 - 30 mm/hr [facility] Blood 05/30/2022 12:3 9 PM CDT 05/30/2022 12:57 PM CDT us Mariela Denton MD LAB BLOOD ORDERABLE S Final Result [facility] [place] [address] * Ferritin (05/30/2022 12:39 PM CDT) Ferritin 75 13 - 150 ng/mL [facility] Blood 05/30/2022 12:3 9 PM CDT 05/30/2022 12:57 PM CDT us Mariela Denton MD LAB BLOOD ORDERABLE S Final Result [facility] [place] [address] * Iron profile w/ IBC (05/30/2022 12:39 PM CDT) Pathologist [facility] Iron 98 35 - 145 mcg/dL [facility] TIBC 280 250 - 400 mcg/dL [facility] Transferrin saturation 35 20 - 50 % [facility] Blood 05/30/2022 12:3 9 PM CDT 05/30/2022 12:57 PM CDT us Mariela Denton MD LAB BLOOD ORDERABLE S Final Result [facility] [place] [address] * (ABNORMAL) Vitamin B12 (05/30/2022 12:39 PM CDT) [facility] Vitamin B12 >2,000(H) 230 - 1,250 pg/mL [facility] Blood 05/30/2022 12:3 9 PM CDT 05/30/2022 12:57 PM CDT us Mariela Denton MD LAB BLOOD ORDERABLE S Final Result [facility] Department [place] [address] * (ABNORMAL) Vitamin D 25 hydroxy (05/30/2022 12:39 PM CDT) Vitamin D 25-OH 29(L) 30 - 80 ng/mL [facility] Blood 05/30/2022 12:3 9 PM CDT 05/30/2022 12:57 PM CDT us Mariela Denton MD LAB BLOOD ORDERABLE S Final Result [facility] [place] [address] documented in this encounter Visit Diagnoses Diagnosis Ulcerative colitis with complication, unspecified location (HCC) 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
--- OUTSIDE RECORDS SUMMARY | 2024-08-18 11:09 | XMS_ITS | Encounter Summary ---
Author Organization [facility] Facility Care Team Providers Care [employer] Professor Name Role Phone Unavailable Primary Care Provider Unavailabl e Encounter Details Date Type Department Care Team (Late st Contact Info) Description 07/08/2012 - 07/08/2012 11:59 PM MAKING MACHINE CATCHER Hospital [facility] CLINCON[facility] See MD [address] [facility] [address] [place] [address] Stress fracture of other bone; Nonunion of fracture Social History Tobacco Use Types Packs/Day Years Used Date Smoking Tobacco: Never Assessed Comments Unknown Sex and Gender Information Value Date Recorded Sex Assigned at Not on file Legal Sex Female 9:30 AM MAKING 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
--- OUTSIDE RECORDS SUMMARY | 2024-08-18 11:09 | XMS_ITS | Encounter Summary ---
Author Organization [facility] Facility Care Team Providers Care Delivery Stock Clerk Name Role Phone Unavailable Primary Care Provider Unavailabl e Encounter Details Date Type Department Care Team (Late st Contact Info) Description 04/22/2011 - 04/22/2011 11:59 PM CDT Hospital Encounter [facility] CLINRick Christensen MD [address] [facility] [address] [place] [address] Aftercare following joint replacement; Aftercare for healing traumatic fracture of upper leg Social History Tobacco Use Types Packs/Day Years Used Date Smoking Tobacco: Never Assessed Comments Unknown Sex and Gender Information Value Date Recorded Sex Assigned at Not on file Legal Sex Female 9:30 AM RN PLASTICS Gender Identity Female 04/05/2022 6:17 PM CDT Sexual Orientation Straight 04/05/2022 6: 17 PM CDT documented as of this encounter Plan of Treatment Not on file documented as of this encounter Visit Diagnoses Diagnosis Aftercare following joint replacement Aftercare for healing traumatic fracture of upper leg documented in this encounter
--- OUTSIDE RECORDS SUMMARY | 2024-08-18 11:09 | XMS_ITS | Encounter Summary ---
Author Organization [facility] Facility Care Team Providers Care Ceramic Artist Name Role Phone Unavailable Primary Care Provider Unavailabl e Encounter Details Date Type Department Care Team (Latest Contact Info) Description 02/11/2011 3:14 PM CDT - 02/11/2011 4:00 PM CDT Hospital Encounter [facility] Rick Cast[facility]eda MD [address] [facility] [address] [place] [address] Stress fracture of shaft of femur; Essential hypertension; Anemia; Obesity; Body mass index 32.0-32.9, adult; Surgical operation with implant of artificial internal device causing abnormal patient reaction, or later complication Social History Tobacco Use Types Packs/Day Years Used Date Smoking Tobacco: Never Assessed Comments Unknown Sex and Gender Information Value Date Recorded Sex Assigned at Not on file Legal Sex Female 9:30 AM HEAD OF MARKETING ANALYTICS Gender Identity Female 04/05/2022 6:17 PM CDT [...]
--- OUTSIDE RECORDS SUMMARY | 2024-08-18 11:09 | XMS_ITS | Encounter Summary ---
Author Organization [facility] Facility Care Team Providers Care Semiautomatic Stitcher Operator Name Role Phone Unavailable Primary Care Provider Unavailabl e Encounter Details Date Type Department Care Team (Late st Contact Info) Description 07/17/2011 - 07/17/2011 11:59 PM CARDIOLOGY TECHNOLOGIST Hospital Encounter [facility] CLINCONRick See MD [address] [facility] [address] [place] [address] Pain in joint, pelvic region and thigh; History of hip joint replacement by other means; Nonunion of fracture; Localized osteoarthrosis, lower leg; Loose body in knee Social History Tobacco Use Types Packs/Day Years Used Date Smoking Tobacco: Never Assessed Comments Unknown Sex and Gender Information Value Date Recorded Sex Assigned at Not on file Legal Sex Female 9:30 AM CARDIOLOGY TECHNOLOGIST Gender Identity Female 04/05/2022 6:17 PM [...]
== END 2024-08-13 17:55 | DRG 101 ==
LOC: ANHED 07:25 → ANHIMU 11:43
PROVIDERS: Emergency Medicine; Student in an Organized Health Care Education/Training Program; Admitting Provider Hospitalist; Emergency Provider Emergency Medicine; PCP Family Medicine; Visit Provider Nurse Practitioner Family
DX: G40.209 Localization-related (focal) (partial) symptomatic epilepsy and epileptic syndromes with complex partial seizures, not intractable, without status epilepticus (principal); K51.90 Ulcerative colitis, unspecified, without complications; I10 Essential (primary) hypertension; E11.9 Type 2 diabetes mellitus without complications; E78.5 Hyperlipidemia, unspecified; K21.9 Gastro-esophageal reflux disease without esophagitis; M85.80 Other specified disorders of bone density and structure, unspecified site; F03.90 Unspecified dementia, unspecified severity, without behavioral disturbance, psychotic disturbance, mood disturbance, and anxiety; Z20.822 Contact with and (suspected) exposure to COVID-19; Z79.82 Long term (current) use of aspirin
CPT/HCPCS: 36415; 70450; 70551; 71045; 72125; 80048; 80053; 80175; 81001; 82948; 83036; 83605; 83735; 84443; 85025; 85027; 87637; 93005; 96361; 96374; 96375; 96376; 97165; 99285; A9270; G0378; J1953; J2060; J3360; J7030

== ENCOUNTER 2024-08-25 03:39 | Emergency (ER) | payer MEDICARE, SELFPAY ==
--- NOTE | ~2024-08-25 | CT_ITS ---
EXAMINATION: CT cervical spine wo con DATE: 08/25/2024 04:48 INDICATION: Neck pain after seizure. TECHNIQUE: Computed tomography (CT) of the cervical spine was performed without intravenous contrast. The dose-length product was 251 mGy-cm. Automated exposure control and iterative reconstruction tech MAD Incubator were employed. COMPARISON: 08/11/2024 FINDINGS: Odontoid process is normal. Craniovertebral junction is normal. Stable degenerative anterol isthesis at C4-5. No evidence for perched facet. Spinous processes are normal. Vertebral body heights are maintained. Mild multilevel facet hypertrophy. Mild multilevel uncinate hypertrophy. Lung apices are unremarkable. There is carotid atherosclerosis. No significant paraspinal soft tissue abnormalit y. IMPRESSION: 1. No acute abnormality of the cervical spine. Reviewed, dictated and finalized at location A. GER OF PATIENT
--- NOTE | ~2024-08-25 | CT_ITS ---
EXAMINATION: CT BRAIN W/O DATE: 08/25/2024 04:48 INDICATION: Trauma to the back of head. GLF TECHNIQUE: Computed tomography (CT) of the head was performed without intravenous contrast. The dose- length product was 681.00 mGy-cm. Automated exposure control and iterative reconstruction technique w ere employed. COMPARISON: No prior studies for comparison. FINDINGS: Generalized atrophy. There are scattered mild periventricular and subcortical white matter changes, most likely related to small vessel ischemic disease (microangiopathy). Small scalp hematoma identified. There is intracranial atherosclerosis. Paranasal sinuses and mastoids are pneumatized. N o depressed skull fractures. No ventriculomegaly or midline shift. Midline sagittal images demonstrate a normal corpus callosum, c raniovertebral junction and sella turcica. Basilar cisterns are patent. Paranasal sinuses and mastoids are pneumatized. No depressed skull fractures. IMPRESSION: 1. No acute intracranial abnormality. Reviewed, dictated and finalized at location A. ERY PARTS ASSEMBLER
--- OUTSIDE RECORDS SUMMARY | 2024-08-25 03:42 | XMS_ITS | Encounter Summary ---
Author Organization [facility] Address [address] [place] [address] [place] [address] Care Team Providers Care Cable Maker Name Role Phone Jared Abrams MD Primary Care Provider [phone] Servando Torre MD Primary Care Provider [phone] Encounter Details Date Type Department Care Team (Late st Contact Info) Description 09/26/2003 Abstract [facility] Conversion , Generic Conversion, Social [...] st Contact Info) Description 09/28/2024 2:30 PM VALET ATTENDANT Appointment [facility] [address] [place] [address] Josué Cook MD [address] [facility] [address] [place] [address] documented as of this encounter Visit Diagnoses Not on filedocumented in this encounter Care Teams Cable Maker Relationship Specialty Start Date End Date Jared Abrams MD PCP - General 08/28/11 07/16/22 Servando Torre MD [address] [facility] [address] [place] [address] PCP - General FAMILY PRACTICE 07/17/22 documented as of this encounter
--- OUTSIDE RECORDS SUMMARY | 2024-08-25 03:42 | XMS_ITS | Clinical Summary ---
Author Organization [facility] Address [address] [place] [address] Care Team Providers Care Pin Drafter Name Role Phone Servando Torre MD Primary Care Provider Mariela Denton MD Unavailable [phone] Lexis Barroso OD Unavailable [phone] Allergies Active Allergy Reactions Criticality Noted Date [...] at: [facility] ([facility] order in [facility] under 'Procedures' tab). 1 each 5 04/29/20 [...] daily 90 tablet 3 08/27/19 24 025 Active calcium citrate-vitamin D3 (Citracal + D Maximum) 315 mg-6.25 mcg (250 unit) per tablet Take 1 tablet by mouth daily 90 tablet 3 08/27/19 24 025 Active mesalamine (APRISO) 0.375 gram 24 hr [...] nightly 30 tablet 3 07/05/20 24 025 Active rivastigmine (EXELON) 4.6 mg/[address] 4.6 mg on the skin daily 30 patch 6 07/12/20 24 025 Active brivaracetam (BRIVIACT) 50 mg tablet Take 1 tablet (50 mg total) by mouth 2 (two) times a day 60 tablet 3 08/23/19 25 025 Active brivaracetam (Briviact) 50 mg tablet Take 1 tablet (50 mg total) by mouth 2 (two) times a day for 5 doses 5 tablet 08/23/19 25 025 Active brivaracetam (Briviact) 50 mg tablet Take 1 tablet (50 mg total) by mouth 2 (two) times a day for 5 doses 5 tablet 08/23/19 25 025 Discontinued Active Problems Problem Noted Date Diagnosed Date [...] epilepticus 03/17/2023 At risk for falls 03/13/2023 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 [...] 05/29 Assessment & Plan (07/05/2024 3:20 PM IS PROJECT MANAGER): A(n) yearly Medicare Annual Wellness Visit has [...] months Assessment & Plan (06/26/2023 2:02 PM IS PROJECT MANAGER): A(n) yearly Medicare Annual Wellness Visit has [...] months Assessment & Plan (06/23/2022 3:06 PM IS PROJECT MANAGER): A(n) initial Medicare Annual Wellness Visit has [...] (06/19/2022): Added automatically from request for surgery [id number] Ear ringing 03/03/2013 Asymmetrical sensorineural hearing loss 03/03/20 13 Stress fracture 07/07/2012 Arthralgia of hip 02/06/2011 Resolved Problems Problem Noted Date Diagnosed Date Resolved Date Hospital discharge follow-up 06/11/2023 08/07/2023 Assessment & Plan (06/11/2023 1:42 PM IS PROJECT MANAGER): I have reviewed the hospital record, medications, and relevant testing from Radha K Alejandro's recent admission. Complications and discharge plan have [...] Encounters Date Type Department Care Team Description 08/24/2024 Telephone [facility] Epilepsy [address] [facility] [address] 6th [place] [address] [place] [address] Adria Burleson MD Medication Problem; Med Management 08/17/2024 8:26 AM IS PROJECT MANAGER - 08/23/2024 5:10 PM IS PROJECT MANAGER Hospital Encounter [address] [phone] Adria Burleson MD Discharge Disposition: Discharge to home or self care 08/17/2024 8:00 AM IS PROJECT MANAGER Ancillary Procedure [address] [phone] eRne [place] Seizure (HCC) 08/16/2024 Orders Only [facility] Primary Care at [address] [phone] Silvestre Ahn MD 08/13/2024 Telephone [facility] Neurodiagnostics [address] [place] [phone] Karen Lee 08/12/2024 Telephone [facility] Epilepsy [address] 6th [place] [address] [place] [address] Ute Miller MD 08/12/2024 Orders Only [facility] Primary Care at [address] [phone] ProviderSilvestre MD 08/03/2024 4:00 PM IS PROJECT MANAGER - 08/03/2024 11:59 PM IS PROJECT MANAGER Hospital Encounter [address] [address] Frequent falls; Syncope, unspecified syncope type; Memory impairment; Essential (primary) hypertension Discharge Disposition: Discharge to home or self care 08/03/2024 8:45 AM IS PROJECT MANAGER Lab [facility] Outpatient Lab at [address] [phone] 08/03/2024 8:00 AM IS PROJECT MANAGER Ancillary Procedure [facility] Vascular and Vein Surgery at [address] [place] [phone] Carotid stenosis, asymptomatic, bilateral 07/28/2024 Orders Only [address] [place] [phone] Chelsie Francisco NP 07/24/2024 Orders Only [address] Floor [address] [place] [phone] Chelsie Francisco NP Frequent falls (Primary Dx); Syncope, unspecified syncope type; Memory impairment; Essential (primary) hypertension; Sleep walking 07/22/2024 7:00 PM IS PROJECT MANAGER Office Visit [facility] Convenient Care at [address] [phone] Lexis Chaves PA Encounter for staple removal (Primary Dx) 07/14/2024 Telephone [facility] Primary Care at [address] [phone] Servando Torre MD CT Results 07/12/2024 Orders Only [address] Floor [address] [place] [phone] Chelsie Francisco NP 07/12/2024 Orders Only [facility] Primary Care at [address] [phone] Marcell Rucker MD 07/09/2024 Telephone [facility] Epilepsy [address] [address] 6th [place] [address] [place] [phone] Adria Burleson MD Medication Problem; Request For Order(s) 07/08/2024 3:15 PM IS PROJECT MANAGER Office Visit [facility] [place] [address] [place] [address] Chelsie Francisco NP Somnolence, daytime (Primary Dx); Memory impairment; Frequent falls; Anxiety 07/05/2024 3:00 PM IS PROJECT MANAGER Office Visit [facility] Primary Care at [address] [phone] Servando Torre MD Encounter for Medicare annual wellness exam (Primary Dx); Mixed diabetic hyperlipidemia associated with type 2 diabetes mellitus (HCC); Hypertension associated with diabetes (HCC); Gastroesophageal reflux disease without esophagitis; At risk for falls; Carotid stenosis, asymptomatic, bilateral 07/02/2024 10:20 AM IS PROJECT MANAGER - 07/02/2024 11:59 PM IS PROJECT MANAGER Hospital Encounter [address] [address] Hypertension associated with diabetes (HCC); Seizure (HCC); Weakness generalized Discharge Disposition: Discharge to home or self care 07/02/2024 10:15 AM IS PROJECT MANAGER Lab [facility] Outpatient Lab at [address] [phone] Encounter for Medicare annual wellness exam (Primary Dx) 06/29/2024 Orders Only [facility] [place] [address] [place] [address] Kimberly Nicolas MD Weakness generalized (Primary Dx) 06/18/2024 3:00 PM IS PROJECT MANAGER Ancillary Procedure [facility] Imaging at [address] [phone] Accidental fall, subsequent encounter 06/18/2024 2:55 PM IS PROJECT MANAGER Ancillary Procedure [facility] Imaging at [address] [phone] Accidental fall, subsequent encounter 06/18/2024 2:30 PM IS PROJECT MANAGER Office Visit [facility] Convenient Care at [address] [phone] Pricilla Olguin NP Accidental fall, subsequent encounter (Primary Dx) 05/28/2024 Telephone [facility] Primary Care at [address] [phone] Servando Torre MD Medical Question/Miscellaneou [...] Stroke Mother Akilah Mccarthy afib Mother Akilah Gupta Fabio Relation Name [...] on file Legal Sex Female 9:30 AM IS PROJECT MANAGER Gender Identity Female 04/05/2022 6:17 PM CDT Sexual Orientation Straight 04/05/2022 6: 17 PM CDT Obstetrics History Last Filed Vital Signs Vital Sign Reading Time Taken Comments Blood Pressure 147/64 08/23/2024 7:40 AM IS PROJECT MANAGER Pulse 64 08/23/2024 7:40 AM IS PROJECT MANAGER Temperature 37 ??C (98.6 ??F) 08/23/2024 7:40 AM IS PROJECT MANAGER Respiratory Rate 16 08/23/2024 7:40 AM IS PROJECT MANAGER Oxygen Saturation 98% 08/23/2024 7:40 AM IS PROJECT MANAGER Inhaled Oxygen Concentration - - Weight 65.8 kg (145 lb 1 oz) 08/17/2024 6:45 PM IS PROJECT MANAGER Height 157.5 cm (5' 2.01 ) 08/17/2024 6:45 PM CS T Body Mass Index 26.53 08/17/2024 6:45 PM IS PROJECT MANAGER Plan of Treatment Health Maintenance Due Date Last Done Comments Hepatitis B Screening 1963 Covid-19 Vaccine ( season) 2024 05/30/2022, 05/18/2021, 10/20/2020, Additional history exists Dilated Eye Exam 06/25/2024 06/25/2023, 11/29/2022 Osteoporosis Screening-Bone Density Scan 12/12/2024 12/12/2022, 12/12/2022 Hemoglobin A1C 12/31/2024 07/02/2024, 09/0 09/2023, 01/01/2024, Additional history exists Foot Exam 04/01/2025 04/01/2024, 090 11/2023, 12/19/2022 Albumin Creatinine Ratio, Urine 07/02/2025 07/02/2024, 03/21/2023 Lipid Panel 07/02/2025 07/02/2024, 09/0 09/2023, 09/30/2023, Additional history exists eGFR 07/02/2025 07/02/2024, 090 09/2023, 09/30/2023, Additional history exists Depression Screening 07/05/2025 07/05/2024, 04/01/2024, 01/19/2024, Additional history exists Well Visit 65+ 07/05/2025 07/05/2024, 05/30, 06/19/2022 DTaP/Tdap/Td Vaccine (1 - Tdap) 07/27/2025 Postponed from 1954 (Insurance / Financial) Fall Risk Assessment 08/23/2025 08/23/2024, 07/05/2024, 01/19/2024, Additional history exists Zoster Vaccine Completed 08/01/2020, 05/30/2020 Pneumococcal vaccine 65+ Completed 03/27/2023 Influenza Vaccine Completed 05/05/2024, , 05/06/2022 Procedures Procedure Name Priority Date/Time Associated Diagnosis Comments POCT GLUCOSE DEVICE Routine 08/22/2024 6 :24 AM IS PROJECT MANAGER POCT GLUCOSE DEVICE Routine 08/21/2024 6 :06 AM IS PROJECT MANAGER POCT GLUCOSE DEVICE Routine 08/18/2024 5 :09 PM IS PROJECT MANAGER POCT GLUCOSE DEVICE Routine 08/18/2024 1 1:18 AM IS PROJECT MANAGER POCT GLUCOSE DEVICE Routine 08/18/2024 8 :02 AM IS PROJECT MANAGER BRAIN, BRAIN STEM MAGNETIC RESONANCE (MR) IMAGING Schedule Routine, Read Routine (OP Routine) 08/12/2024 1:35 PM IS PROJECT MANAGER XR CHEST 1 VIEW Schedule Routine, Read Routine (OP Routine) 08/11/2024 9:53 AM IS PROJECT MANAGER US CAROTIDS DUPLEX BILATERAL Schedule Routine, Read Routine (OP Routine) 08/03/2024 8:46 AM IS PROJECT MANAGER Carotid stenosis, asymptomatic, bilateral METHYLMALONIC ACID, SERUM Routine 08/03/2024 8:30 AM IS PROJECT MANAGER Frequent falls Syncope, unspecified syncope type Memory impairment HOMOCYSTEINE Routine 08/03/2024 8:30 AM IS PROJECT MANAGER Frequent falls Syncope, unspecified syncope type Memory impairment Essential (primary) hypertension VITAMIN B12 Routine 08/03/2024 8:30 AM IS PROJECT MANAGER Frequent falls Syncope, unspecified syncope type Memory impairment HEAD COMPUTED TOMOGRAPHY (CT) WITHOUT CONTRAST Schedule Routine, Read Routine (OP Routine) 07/11/2024 9:14 AM IS PROJECT MANAGER URINALYSIS, MICROSCOPIC ONLY Routine 07/02/2024 10:20 AM IS PROJECT MANAGER Weakness generalized EGFR Routine 07/02/2024 10:20 AM IS PROJECT MANAGER Weakness generalized DIFFERENTIAL AUTO Routine 07/02/2024 10: 20 AM IS PROJECT MANAGER Weakness generalized CBC WITH AUTO DIFFERENTIAL Routine 07/02/2024 10:20 AM IS PROJECT MANAGER Weakness generalized COMPREHENSIVE METABOLIC PANEL Routine 07/02/2024 10:20 AM IS PROJECT MANAGER Weakness generalized ALBUMIN CREATININE RATIO, URINE Routine 07/02/2024 10:20 AM IS PROJECT MANAGER Hypertension associated with diabetes (HCC) HEMOGLOBIN A1C Routine 07/02/2024 10:20 AM IS PROJECT MANAGER Hypertension associated with diabetes (HCC) LAMOTRIGINE LEVEL Routine 07/02/2024 10: 20 AM IS PROJECT MANAGER Seizure (HCC) LIPID PANEL Routine 07/02/2024 10:20 AM IS PROJECT MANAGER Hypertension associated with diabetes (HCC) URINALYSIS AND REFLEX TO MICROSCOPIC AND CULTURE Routine 07/02/2024 10:20 AM IS PROJECT MANAGER Weakness generalized XR SPINE LUMBAR 2 OR 3 VIEWS Schedule SHIRA, Read SHIRA (Appt Today, Awaiting Results) 06/18/2024 3:04 PM IS PROJECT MANAGER Accidental fall, subsequent encounter XR HIP LEFT 2 OR 3 VIEWS Schedule SHIRA, Read SHIRA (Appt Today, Awaiting Results) 06/18/2024 3:04 PM IS PROJECT MANAGER Accidental fall, subsequent encounter DIABETIC EYE EXAM Routine 06/25/2023 DEXA AXIAL SKELETON BONE DENSITY 1 OR MORE SITES Schedule Routine, Read Routine (OP Routine) 12/12/2022 2:33 PM CDT Screening for osteoporosis Asymptomatic menopausal state from Last 3 Months or Most Recently Relevant to Health Maintenance Results * POCT glucose (08/22/2024 6:24 AM IS PROJECT MANAGER) Glucose, POC 141 70 - 199 mg/dL Blood 08/22/2024 6:24 AM IS PROJECT MANAGER 08/22/2024 6:24 AM IS PROJECT MANAGER Adria Diop MD LAB POCT ORD ERABLES - DEVICE Final Result Performing Organization Address [facility] Co de Phone Number [facility] [place] [address] * POCT glucose (08/21/2024 6:06 AM IS PROJECT MANAGER) Glucose, POC 126 70 - 199 mg/dL Blood 08/21/2024 6:06 AM IS PROJECT MANAGER 08/21/2024 6:06 AM IS PROJECT MANAGER us Adria Diop MD LAB POCT ORD ERABLES - DEVICE Final Result Performing Organization Address [facility] Co de Phone Number [facility] Department [place] [address] * POCT glucose (08/18/2024 5:09 PM IS PROJECT MANAGER) Glucose, POC 99 70 - 199 mg/dL Blood 08/18/2024 5:09 PM IS PROJECT MANAGER 08/18/2024 5:09 PM IS PROJECT MANAGER Adria Diop MD LAB POCT ORD ERABLES - DEVICE Final Result Performing Organization Address [facility] Co de Phone Number [facility] [place] [address] * POCT glucose (08/18/2024 11:18 AM IS PROJECT MANAGER) Glucose, POC 178 70 - 199 mg/dL Blood 08/18/2024 11:1 8 AM IS PROJECT MANAGER 08/18/2024 11:18 AM IS PROJECT MANAGER Adria Diop MD LAB POCT ORD ERABLES - DEVICE Final Result Performing Organization Address [facility] Co de Phone Number [facility] [place] [address] * POCT glucose (08/18/2024 8:02 AM IS PROJECT MANAGER) Glucose, POC 130 70 - 199 mg/dL Blood 08/18/2024 8:02 AM IS PROJECT MANAGER 08/18/2024 8:02 AM IS PROJECT MANAGER Adria Diop MD LAB POCT ORD ERABLES - DEVICE Final Result Performing Organization Address City/[facility] Co de Phone Number [facility] [place] [address] * BRAIN, BRAIN STEM MAGNETIC RESONANCE (MR) IMAGING (08/12/2024 1:35 PM IS PROJECT MANAGER) Anatomical Region Laterality Modality N/A Magnetic Resonan ce us Historical Provider IMG MRI PROCEDURES Final Result * XR Chest 1 View (08/11/2024 9:53 AM IS PROJECT MANAGER) Anatomical Region Laterality Modality Body, Chest N/A Radiographic Keyanna ging us Historical Provider MD GRAHAM XR PROCEDURES Final R esult * Vl US Carotids (08/03/2024 8:46 AM IS PROJECT MANAGER) Anatomical Region Laterality Modality Vascular Bilateral Ultrasound 08/03/2024 8:26 AM IS PROJECT MANAGER Narrative 08/03/2024 9:47 AM IS PROJECT MANAGER Vascular & Vein Surgery [address] [facility] [place] [address] Carotid Duplex Ultrasound Report Patient Name: RADHA ALLEN K : 1945 (79y 4m) Study Date: 08/03/2024 8:26:13 AM Gender: F Padder Cushion: Location: [facility] Ref Provider: SERVANDO TORRE ?Quality: [...] Gino Correa MD B 08/03/2024 9:46:05 AM IS PROJECT MANAGER Procedure Note Gino Correa MD - 08/03/2024 Vascular & Vein Surgery [address] [place] [address] Carotid Duplex Ultrasound Report Patient Name: RADHA ALLEN K : 1945 (79y 4m) Study Date: 08/03/2024 8:26:13 AM Gender: F Padder Cushion: Location: [facility] Ref Provider: SERVANDO TORRE Quality: Adequate Order [...] above. Electronically Signed By: Gino Correa MD Estuardo 08/03/2024 9:46:05 AM IS PROJECT MANAGER Servando Torre MD [facility] PROCEDURES Final Res ult * Methylmalonic acid, serum (08/03/2024 8:30 AM IS PROJECT MANAGER) MMA 0.25 <=0.40 nmol/mL [facility] Comment: ADDITIONAL INFORMATION This test was developed and its performance characteristics determined by [facility] in a manner consistent with CLIA requirements. This test has not been cleared or approved by the U.S. Food and Drug Administration. Test Performed by: [address] [address] Interventional Nurse: Liu Davis Ph.D.; CLIA# [id number] Blood 08/03/2024 8:30 AM IS PROJECT MANAGER 08/03/2024 4:21 PM IS PROJECT MANAGER Chelsie Francisco INNER TUBE TUBER MACHINE OPERATOR LAB BLOOD ORDERABLES F inal Result Performing Organization Address [facility] Co de Phone Number AILEEN MATTHEW [address] [place] [address] [facility] * Homocysteine (08/03/2024 8:30 AM IS PROJECT MANAGER) Homocysteine 14.0 0.0 - 15.0 mcmol/L Comment:Testing performed by : [facility], [address] [place]., [address] Blood 08/03/2024 8:30 AM IS PROJECT MANAGER 08/04/2024 10:21 AM IS PROJECT MANAGER Chelsie Francisco INNER TUBE TUBER MACHINE OPERATOR LAB BLOOD ORDERABLES F inal Result Performing Organization Address [facility] Co de Phone Number [facility] [address] [place] [address] * Vitamin B12 (08/03/2024 8:30 AM IS PROJECT MANAGER) Vitamin B12 350 230 - 1,250 pg/mL Blood 08/03/2024 8:30 AM IS PROJECT MANAGER 08/03/2024 4:21 PM IS PROJECT MANAGER Chelsie Francisco INNER TUBE TUBER MACHINE OPERATOR LAB BLOOD ORDERABLES F inal Result Performing Organization Address City/[facility] Co de Phone Number [facility] [address] [place] [address] * HEAD COMPUTED TOMOGRAPHY (CT) WITHOUT CONTRAST (07/11/2024 9:14 AM IS PROJECT MANAGER) Anatomical Region Laterality Modality N/A Computed Tomogra phy Marcell Rucker MD IMG CT PROCEDURES Final Result * eGFR (07/02/2024 10:20 AM IS PROJECT MANAGER) eGFR 66 >=60 mL/min/1. 73 m2 [...] reviewed 2021. Blood 07/02/2024 10:2 0 AM IS PROJECT MANAGER 07/02/2024 5:35 PM IS PROJECT MANAGER us Kimberly Nicolas MD LAB BLOOD ORDERABLES Final Resu lt AILE[facility] [address] Department [place] [address] * Differential, auto (07/02/2024 10:20 AM IS PROJECT MANAGER) Neutrophil abs 5.1 1.5 - 6.5 K/cumm Imm gran abs 0.0 0.0 - 0.1 K/cumm [facility] Lymphocyte abs 1.4 0.8 - 3.3 K/cumm [facility] Monocyte abs 0.7 0.2 - 0.8 K/cumm [facility] Eosinophil abs 0.3 0.0 - 0.5 K/cumm [facility] Basophil abs 0.0 0.0 - 0.1 K/cumm [facility] Neutrophil pct 68.0 % [facility] Comment: Interpretive Data Percent cell count reference ranges are not reported, since discordance with absolute values may lead to misinterpretation of CBC data. Current Interpretive Data was last revised on 2017. Imm gran pct 0.5 % [facility] Comment: Interpretive Data Percent cell count reference ranges are not reported, since discordance with absolute values may lead to misinterpretation of CBC data. Current Interpretive Data was last revised on 2017. Lymphocyte pct 18.7 % [facility] Comment: Interpretive Data Percent cell count reference ranges are not reported, since discordance with absolute values may lead to misinterpretation of CBC data. Current Interpretive Data was last revised on 2017. Monocyte pct 9.0 % [facility] Comment: Interpretive Data Percent cell count reference ranges are not reported, since discordance with absolute values may lead to misinterpretation of CBC data. Current Interpretive Data was last revised on 2017. Eosinophil pct 3.4 % [facility] Comment: Interpretive Data Percent cell count reference ranges are not reported, since discordance with absolute values may lead to misinterpretation of CBC data. Current Interpretive Data was last revised on 2017. Basophil pct 0.4 % [facility] Comment: Interpretive Data Percent cell count reference ranges are not reported, since discordance with absolute values may lead to misinterpretation of CBC data. Current Interpretive Data was last revised on 2017. Blood 07/02/2024 10:2 0 AM IS PROJECT MANAGER 07/02/2024 5:00 PM IS PROJECT MANAGER us Kimberly Nicolas MD LAB BLOOD ORDERABLES Final Resu lt [facility] [address] [place] [address] * (ABNORMAL) Urinalysis reflex to microscopic and culture Urine, clean voided (07/02/2024 10:20 AM IS PROJECT MANAGER) Color, ur Yellow Yellow Clarity, ur [...] tendency for uric acid stone formation. Source: [facility] Current Interpretive Data was last revised on [...] [facility] Urine, clean voided 07/02/2024 10:20 AM IS PROJECT MANAGER 07/02/2024 5:00 PM IS PROJECT MANAGER us Kimberly Nicolas MD LAB MICROBIOLOGY - GENERAL MIA LEARY Final Result [facility] [address] [place] [address] * (ABNORMAL) CBC with auto differential (07/02/2024 10:20 AM IS PROJECT MANAGER) WBC 7.4 3.8 - 9.9 K/cumm Hgb 13.3 11.9 - 15.5 g/dL [facility] Hct 44.2 35.6 - 45.5 % [facility] Plt 296 150 - 400 K/cumm [facility] MPV 9.4 9.1 - 12.3 fL [facility] RBC 4.79 3.90 - 5.20 M/cumm [facility] MCV 92.3 81.3 - 96.4 fL [facility] MCH 27.8 27.1 - 33.3 pg [facility] MCHC 30.1(L) 32.3 - 35.7 g/dL [facility] RDW CV 13.0 11.1 - 14.9 % [facility] RDW SD 43.8 35.7 - 48.1 fL [facility] NRBC abs 0.00 0.00 - 0.01 K/cumm [facility] Blood 07/02/2024 10:2 0 AM IS PROJECT MANAGER 07/02/2024 5:00 PM IS PROJECT MANAGER Kimberly Nicolas MD LAB BLOOD ORDERABLES Final Resu lt Performing Organization Address [facility] de Phone Number [facility] [address] [place] [address] * (ABNORMAL) Albumin Creatinine Ratio, Urine (07/02/2024 10:20 AM IS PROJECT MANAGER) Albumin Ur 45.5 mg/L Comment: Interpretive Data No reference range established. Current interpretive data was last revised 2018. Creatinine Ur 73.7 mg/dL [facility] Comment: Interpretive Data No reference range established. Current interpretive data was last revised 2018. Albumin Creatinine Ratio, Ur 62(H) 1 - 29 mg/g [facility] Urine 07/02/2024 10:2 0 AM IS PROJECT MANAGER 07/02/2024 5:00 PM IS PROJECT MANAGER Servando Torre MD LAB URINE ORDERABLES Final Result Performing Organization Address [facility] Co de Phone Number [facility] [address] [employer] [place], [place] [id number] * Lamotrigine level (07/02/2024 10:20 AM IS PROJECT MANAGER) Lamotrigine 9.6 3.0 - 15.0 mcg/mL [place] ref Lab Comment: ADDITIONAL INFORMATION This test was developed and its performance characteristics determined by [facility] in a manner consistent with CLIA requirements. This test has not been cleared or approved by the U.S. Food and Drug Administration. Test Performed by: [facility] Laboratories - [facility] [address] [place] [address] Interventional Nurse: Liu Davis Ph.D.; CLIA# [id number] Blood 07/02/2024 10:2 0 AM IS PROJECT MANAGER 07/02/2024 5:00 PM IS PROJECT MANAGER Servando Torre MD LAB BLOOD ORDERABLES Final Result Performing Organization Address [facility] Co de Phone Number AILEEN MATTHEW [address] [place] [address] [facility] Lab * (ABNORMAL) Urinalysis, microscopic only (07/02/2024 10:20 AM IS PROJECT MANAGER) WBC, ur 6-10(A) 0 - 5 /HPF RBC, ur 3-5(A) 0 - 2 /HPF [facility] Epithelial cells, squamous, ur 1-5 0 - 5 /HPF [facility] Mucous, ur Present(A) [facility] Culture Reflex Comment Reflex conditions for urine culture (WBC >10) not met. [facility] Urine, clean voided 07/02/2024 10:20 AM IS PROJECT MANAGER 07/02/2024 5:00 PM IS PROJECT MANAGER Kimberly Nicolas MD LAB URINE ORDERABLES Final Resu lt Performing Organization Address City/[facility] Co de Phone Number AILEEN MATTHEW [address] [place] [address] * (ABNORMAL) Hemoglobin A1c (07/02/2024 10:20 AM IS PROJECT MANAGER) Hgb A1C 6.4(H) 4.0 - 5.6 % Estimated Average Glucose 137 mg/dL [facility] Comment: The ADA recommends reporting an estimated Average Glucose (eAG) with all Hemoglobin A1c results using the equation derived from a study of 507 normal and diabetic adults. ??Minority populations were underrepresented and children were not included. ?? (Diabetes Care 31:4715-4729, 2008). ??The eAG is not equivalent to a fasting glucose. Blood 07/02/2024 10:2 0 AM IS PROJECT MANAGER 07/02/2024 5:00 PM IS PROJECT MANAGER us Servando Torre MD LAB BLOOD ORDERABLES Final Result Performing Organization Address City/State/ZIP [facility] Phone Number AILEEN MATTHEW [address] [place] [address] * (ABNORMAL) Lipid panel (07/02/2024 10:20 AM IS PROJECT MANAGER) Cholesterol 190 30 - 199 mg/dL Comment: [...] CERNER CH Blood 07/02/2024 10:2 0 AM IS PROJECT MANAGER 07/02/2024 5:00 PM IS PROJECT MANAGER us Servando Torre MD LAB BLOOD ORDERABLES Final Result AILEEN [address] [place] [address] * (ABNORMAL) Comprehensive metabolic panel (07/02/2024 10:20 AM IS PROJECT MANAGER) Sodium 141 135 - 145 mmol/L [...] CERNER CH Blood 07/02/2024 10:2 0 AM IS PROJECT MANAGER 07/02/2024 5:00 PM IS PROJECT MANAGER us Kimberly Nicolas MD LAB BLOOD ORDERABLES Final Resu lt AILEEN [address] [place] [address] * XR Spine Lumbar 2 or 3 Views (06/18/2024 3:04 PM IS PROJECT MANAGER) Anatomical Region Laterality Modality Spine N/A Digital Radiogra phy 06/18/2024 5:05 PM IS PROJECT MANAGER Narrative 06/18/2024 5:13 PM IS PROJECT MANAGER EXAM DESCRIPTION: XR HIP LEFT 2 [...] no change from prior CT. There is tgkk-ft-xhticqby multilevel degenerative endplate change with no acute [...] D: ??06/18/2024 5:13 PM T: Report ID: [id number] Reading Location: ??[id number] Procedure Note Teofilo Rand MD - 06/18/2024 [...] no change from prior CT. There is kuyi-gt-wliyhvmz multilevel degenerative endplate change with no acute [...] Teofilo Rand M.D. MJ T: Report ID: [id number] Reading Location: [place] [address] us Pricilla Olguin NP IMG XR PROCEDURES Final Result * XR Hip Left 2+ Vw (06/18/2024 3:04 PM IS PROJECT MANAGER) Anatomical Region Laterality Modality Lower Extremities, Hip, Pelvis Left D igital Radiography 06/18/2024 5:05 PM IS PROJECT MANAGER Narrative 06/18/2024 5:13 PM IS PROJECT MANAGER EXAM DESCRIPTION: XR HIP LEFT 2 [...] no change from prior CT. There is rffl-mb-qzoolteq multilevel degenerative endplate change with no acute [...] D: ??06/18/2024 5:13 PM T: Report ID: [id number] Reading Location: ??[id number] Procedure Note Teofilo Rand MD - 06/18/2024 [...] no change from prior CT. There is iazw-tz-kmohvhzy multilevel degenerative endplate change with no acute [...] Teofilo Rand M.D. MJ T: Report ID: [id number] Reading Location: [place] [address] Pricilla Olguin NP IMG XR PROCEDURES Final [...] Bone mineral density was performed on a 12Society Discovery Densitometer. ?? Based on machine cross-calibration [...] by the International Society of Clinical Densitometry. [id number] Servando Torre MD IMG DXA PROCEDURES Final Re sult from Last 3 Months or Most Recently Relevant to Health Maintenance Insurance MEDICARE [facility] MEDICARE SUPPLEMENT MEDICARE [facility] MEDICARE SUPPLEMENT [facility] Advance Directives For more information, please contact: [phone] * Full Code (Latest Code Status on File) Date Activated Date Inactivated Comments 08/17/2024 10:27 AM 08/23/2024 9:15 PM * LIMITED - No CPR Date Activated [...] 9:30 AM 11/29/2022 3:28 PM Care Teams Pin Drafter Relationship Specialty Start Date End Date Servando Torre MD [facility] [address] PCP - General Family Medicine 06/19/22 Mariela Denton MD [address] [place] [address] Referring Physician Gastroenterology 06/19/22 Lexis Barroso OD [address] [place] [address] Gynecologist 09/19/22
--- OUTSIDE RECORDS SUMMARY | 2024-08-25 03:42 | XMS_ITS | Encounter Summary ---
Author Organization [facility] Address [address] [facility] [place] [address] [place] [address] Care Team Providers Care Merchant Miller Name Role Phone Jared Abrams MD Primary Care Provider [phone] Servando Torre MD Primary Care Provider [phone] Encounter Details Date Type Department Care Team (Late st Contact Info) Description 06/18/2022 Therapy Plan [facility] [address] [place] [address] Mariela Denton MD [facility] [address] [facility] [address] [place] [address] Social History Tobacco Use Types Packs/Day Years [...] st [facility]) Description 09/28/2024 2:30 PM STEEL BUFFER Appointment [facility] [address] [place] [address] Josué Cook MD [facility] [address] documented as of this encounter Goals Goal Patient Goal Type Associated Problems Recent Progress Patient-Stated? Author HOME TO [facility]IV[facility] General No Vannessa Blackwell RN documented as of this encounter Visit Diagnoses Diagnosis Chronic ulcerative colitis, unspecified complication (CMS/HCC [facility])- Primary documented in this encounter Additional Health Concerns Assessment Noted Time PHQ-9 Depression Total Score: 0 07/06/20 21 4:06 PM STEEL BUFFER documented as of this encounter Care Teams Merchant Miller Relationship Specialty Start Date End Date Jared Abrams MD PCP - General 08/28/11 07/16/22 Servando Torre MD [address] [facility] [address] [place] [address] PCP - General FAMILY PRACTICE 07/17/22 documented as of this encounter
--- OUTSIDE RECORDS SUMMARY | 2024-08-25 03:42 | XMS_ITS | Encounter Summary ---
Author Organization [facility] Address [address] [facility] [place] [address] [place] [address] Care Team Providers Care Cigarette Stamper Name Role Phone Servando Torre MD Primary Care Provider Encounter Details Date Type Department Care Team (Late st Contact Info) Description 08/19/2023 Therapy Plan [facility] Services [address] [place] [address] Josué Cook MD [address] [place] [address] Social History Tobacco Use Types Packs/Day Years [...] st Contact Info) Description 09/28/2024 2:30 PM PATIENT FINANCIAL REPRESENTATIVE Appointment [address] [id number] Josué Cook MD [address] [address] documented as of this encounter Goals Goal Patient Goal Type Associated Problems Recent Progress Patient-Stated? Author [facility]IV[facility] No Vannessa Blackwell RN documented as of this encounter Visit Diagnoses Diagnosis Abnormal liver function tests- Primary Other abnormal blood chemistry Chronic ulcerative colitis, unspecified complication (CMS/HCC HHS/HCC) documented in this encounter Additional Health Concerns Assessment Noted Time PHQ-9 Depression Total Score: 0 07/06/20 21 4:06 PM PATIENT FINANCIAL REPRESENTATIVE documented as of this encounter Care Teams Cigarette Stamper Relationship Specialty Start Date End Date Servando Torre MD [address] [place] [address] [address] [place] [address] PCP - General FAMILY PRACTICE 07/17/22 documented as of this encounter
--- OUTSIDE RECORDS SUMMARY | 2024-08-25 03:42 | XMS_ITS | Clinical Summary ---
Author Organization [facility] Address [address] [facility] [place] [address] [place] [address] Care Team Providers Care Natural Gas Engineer Name Role Phone Servando Torre MD Primary Care Provider [phone] Allergies Active Allergy Reactions Criticality Noted Date [...] tests 05/20/2023 Chronic ulcerative colitis, unspecified complication ([facility]/HCC) 06/18/2022 Ulcerative pancolitis withou t complication ([facility]) 09/04/2021 Overview (09/04/2021): Added automatically from request for surgery [id number] Colitis 03/20/2020 Encounters Date Type Department Care Team Description 08/03/2024 2:16 PM BRAID FOLDER - 08/03/2024 3:00 PM BRAID FOLDER Hospital Encounter [facility] [address] [place] [address] Josué Cook MD Discharge Disposition: Home or Self Care (Routine Discharge) 08/03/2024 Travel 05/28/2024 1:43 PM CDT - 05/28/2024 2:55 PM CDT Hospital Encounter [facility] [address] [place] [address] Josué Cook MD Discharge Disposition: Home or [...] Comments Blood Pressure 129/56 08/03/2024 2:46 PM BRAID FOLDER Pulse 65 05/28/2024 2:06 PM CDT Temperature 36.7 ??C (98 ??F) 08/03/2024 1:44 PM BRAID FOLDER Respiratory Rate 18 05/28/2024 2:06 PM CDT Oxygen Saturation 97% 08/03/2024 1:42 PM BRAID FOLDER Inhaled Oxygen Concentration - - Weight 69.9 kg (154 lb) 04/19/2022 2:44 PM CDT Height 157.5 cm (5' 2 ) 04/19/2022 2:44 PM CDT Body Mass Index 28.17 04/19/2022 2:44 PM CDT Plan of Treatment Upcoming Encounters Date Type Department Care Team (Late st Contact Info) Description 09/28/2024 2:30 PM BRAID FOLDER Appointment [facility] [address] [place] [address] Josué Cook MD [address] [address] Health Maintenance Due Date Last Done Comments PHQ-2 (Physician Curyung) 1957 DTaP, Tdap and Td Vaccines ( 1 - Tdap) 1964 Annual Medicare Wellness Visit 2008 RSV Immunization or 60+ Years (1 - 1-dose 75+ series) 2018 COVID-19 Vaccine (2 - Pfizer risk series) 06/20/2022 05/30/2022 Influenza Adult (#1) 2024 05/06/2022 PHQ-2 (Physician Curyung) 07/28/2024 Zoster Vaccines Completed 08/01/2020, 05/30/2020 Dexa Scan [...] Problems Recent Progress Patient-Stated? Author HOME TO [facility] [employer] research affiliate Procedure Name Priority Date/Time Associated Diagnosis Comments C-REACTIVE PROTEIN Routine 08/03/2024 1: 30 PM BRAID FOLDER Chronic ulcerative colitis, unspecified complication (CMS/HCC HHS/HCC) Abnormal liver function tests CBC W/DIFF AUTOMATED Routine 08/03/2024 1:30 PM BRAID FOLDER Chronic ulcerative colitis, unspecified complication (CMS/HCC HHS/HCC) Abnormal liver function tests COMPREHENSIVE METABOLIC PANEL Routine 08/03/2024 1:30 PM BRAID FOLDER Chronic ulcerative colitis, unspecified complication (CMS/HCC HHS/HCC) [...] (ABNORMAL) COMPREHENSIVE METABOLIC PANEL (08/03/2024 1:30 PM BRAID FOLDER) Only the most recent of2 resultswithin the time period is included. Pathologist [facility] GLUCOSE 160(H) 70 - 99 MG/DL 08/03/2024 2:57 PM [facility] BUN 18 7 - 18 MG/DL 08/03/2024 2:57 PM [facility] CREATININE S/P/B 1.21(H) 0.55 - 1.02 MG/DL 08/03/2024 2:57 PM [facility] SODIUM S/P/B 142 136 - 145 MMOL/L 08/03/2024 2:57 PM [facility] POTASSIUM S/P/B 4.0 3.5 - 5.1 MMOL/L 08/03/2024 2:57 PM [facility] CHLORIDE S/P/B 105 100 - 108 MMOL/L 08/03/2024 2:57 PM [facility] CO2 25.9 21 - 32 MMOL/L 08/03/2024 2:57 PM [facility] CALCIUM S/P/B 9.7 8.5 - 10.1 MG/DL 08/03/2024 2:57 PM [facility] BILIRUBIN TOTAL S/P/B 0.4 0.2 - 1.2 MG/DL 08/03/2024 2:57 PM [facility] TOTAL PROTEIN S/P/B 6.8 6.4 - 8.2 G/DL 08/03/2024 2:57 PM [facility] ALBUMIN S/P/B 3.7 3.4 - 5.0 G/DL 08/03/2024 2:57 PM BRAID FOLDER [facility] AST 16 15 - 37 U/L 08/03/2024 2:57 PM [facility] ALT 17 14 - 55 U/L 08/03/2024 2:57 PM [facility] ALKALINE PHOSPHATASE S/P/B 120 50 - 136 U/L 08/03/2024 2:57 PM [facility] ANION GAP 11.1 5 - 15 MMOL/L 08/03/2024 2:57 PM [facility] BUN CREATININE RATIO 14.9 6 - 26 08/03/2024 2:57 PM [facility] A/G RATIO 1.2 1.0 - 2.0 RATIO 08/03/2024 2:57 PM [facility] GFR ESTIMATE 45(L) >90 ML/MIN/1.7 3 M2 08/03/2024 2:57 PM [facility] Comment: NOTE: eGFR is not calculated for patients <18 years of age. This is an estimated GFR calculation using the new CKD EPI creatinine equation without race and so does not require a correction factor for race. This estimated GFR should not be used for calculating drug doses. 08/03/2024 1:30 PM BRAID FOLDER Josué Cook MD LABORATORY Final Result [facility] [address] [place] [address], * C-REACTIVE PROTEIN (08/03/2024 1:30 PM BRAID FOLDER) Only the most recent of2 resultswithin the time period is included. C-REACTIVE PROTEIN <0.29 <0.29 mg/dL 08/03/2024 10:01 PM BRAID FOLDER [facility] 08/03/2024 1:30 PM BRAID FOLDER Josué Cook MD LABORATORY Final Result [facility] [address] [place] [address], * (ABNORMAL) CBC W/DIFF AUTOMATED (08/03/2024 1:30 PM BRAID FOLDER) Only the most recent of2 resultswithin the time period is included. WBC 8.96 4.4 - 11.0 x10'3/uL 08/03/2024 2:20 PM [facility] RBC 4.72 4.50 - 5.10 x10'6/uL 08/03/2024 2:20 PM [facility] HGB 13.7 12.3 - 15.3 G/DL 08/03/2024 2:20 PM [facility] HCT 42.2 35.9 - 44.6 % 08/03/2024 2:20 PM [facility] MCV 89.4 80.0 - 96.0 FL 08/03/2024 2:20 PM [facility] MCH 29.0 25.3 - 30.9 PG 08/03/2024 2:20 PM [facility] MCHC 32.5 31.0 - 34.1 G/DL 08/03/2024 2:20 PM [facility] RDW 13.8 12.4 - 15.1 % 08/03/2024 2:20 PM [facility] PLT 278 151 - 353 x10'3/uL 08/03/2024 2:20 PM [facility] MPV 9.0(L) 9.6 - 12.0 FL 08/03/2024 2:20 PM BRAID FOLDER [facility] RBC MORPHOLOGY NORMAL 08/03/2024 2:20 PM [facility] PLT MORPH. NORMAL 08/03/2024 2:20 PM [facility] WBC MORPHOLOGY NORMAL 08/03/2024 2:20 PM [facility] LYMPHOCYTES % 22.2 15.8 - 45.0 % 08/03/2024 2:20 PM [facility] NEUTROPHILS % 67.6 42.1 - 71.9 % 08/03/2024 2:20 PM [facility] MONOCYTES % 9.2 5.7 - 12.5 % 08/03/2024 2:20 PM [facility] EOSINOPHILS 0.0 0.0 - 5.6 % 08/03/2024 2:20 PM [facility] BASOPHILS 0.6 0.0 - 1.3 % 08/03/2024 2:20 PM [facility] ABS. NEUTROPHILS 6.06(H) 1.40 - 6.00 x10'3/uL 08/03/2024 2:20 PM [facility] IMMATURE GRANS % 0.4 0.0 - 0.5 % 08/03/2024 2:20 PM [facility] ABS. LYMPHOCYTES 1.99 0.80 - 4.70 x10'3/uL 08/03/2024 2:20 PM [facility] 08/03/2024 1:30 PM BRAID FOLDER us Josué Cook MD LABORATORY Final Result [facility] [address] [place] [address], [place] [phone] * QUANTIFERON TBGOLD TUBERCULOSIS TEST (05/28/2024 2:00 PM CDT) Pathologist [facility] TB1 AG MINUS NIL 0.01 IU/ML 05/31/20 24 1:56 PM BRAID FOLDER [facility] TB2 AG MINUS NIL 0.04 IU/ML 05/31/20 24 1:56 PM BRAID FOLDER [facility] TB QUANTIFERON NEGATIVE NEGATIVE 05/31/2024 1:56 PM BRAID FOLDER [facility] TB INTERPRETATION M. tuberculosis infection unlikely but cannot be excluded especially when any illness is consistent with TB disease and/or likelihood of progression to disease is increased. ?? In patients at high risk to M. tuberculosis infection, a second test should be considered. 05/31/2024 1:56 PM BRAID FOLDER [facility] 05/28/2024 2:00 PM CDT Josué Cook MD LABORATORY Final Result [facility] [address] [place] [address], [place] [phone] [id number] * HEPATITIS B SURFACE AG, EIA (05/28/2024 2:00 PM CDT) [facility] HEPATITIS B SURFACE AG NON-REACTI VE NON-REACTI VE 05/28/2024 8:34 PM CDT [facility] 05/28/2024 2:00 PM CDT us Josué Cook MD LABORATORY Final Result [facility] [address] [place] [address], [place] [phone] * HEPATITIS B SURFACE ANTIBODY (05/28/2024 2:00 PM CDT) HEP B SURFACE AB NON-REACTI VE 05/28/2024 11:01 PM CDT [facility] 05/28/2024 2:00 PM CDT Josué Cook MD LABORATORY Final Result [facility] [address] [place] [address], [place] [phone] * HEPATITIS B CORE ANTIBODY (05/28/2024 2:00 PM CDT) HEP B CORE TOTAL AB NON-REACTI VE NON-REACTI VE 05/28/2024 9:04 PM CDT [facility] 05/28/2024 2:00 PM CDT Josué Cook MD LABORATORY Final Result Performing Organization Address City/[facility]/ZIP Co de Phone Number [facility] [address] [place] [address], [place] [phone] from Last 3 Months Insurance MEDICARE [facility] Advance Directives * Full Code (Latest Code Status on File) Date Activated Date Inactivated Comments 03/20/2020 11:16 AM 03/23/2020 7:48 PM Care Teams Natural Gas Engineer Relationship Specialty Start Date End Date Servando Torre MD [address] [facility] [address] [place] [address] PCP - General FAMILY PRACTICE 07/17/22
--- OUTSIDE RECORDS SUMMARY | 2024-08-25 03:42 | XMS_ITS | Encounter Summary ---
Author Organization [facility] Address [address] [facility] [place] [address] [place] [address] Care Team Providers Care Software Development Project Manager Name Role Phone Servando Torre MD Primary Care Provider Encounter Details Date Type Department Care Team (Late st Contact Info) Description 05/01/2023 Therapy Plan [facility] [place] [address] [place] [address] Josué Cook MD [address] [place] [address] Social History Tobacco Use Types Packs/Day Years [...] st Contact Info) Description 09/28/2024 2:30 PM CENTRIFUGAL CASTING MACHINE TENDER Appointment [address] [id number] Josué Cook MD [address] [address] documented as of this encounter Goals Goal Patient Goal Type Associated Problems Recent Progress Patient-Stated? Author HOME TO [facility]IV[facility] No Vannessa Blackwell RN documented as of this encounter Visit Diagnoses Diagnosis Chronic ulcerative colitis, unspecified complication ([facility]/HCC [facility]/HCC)- Primary Abnormal liver function tests Other abnormal blood chemistry documented in this encounter Additional Health Concerns Assessment Noted Time PHQ-9 Depression Total Score: 0 07/06/20 21 4:06 PM CENTRIFUGAL CASTING MACHINE TENDER documented as of this encounter Care Teams Software Development Project Manager Relationship Specialty Start Date End Date Servando Torre MD [address] [place] [address] [address] [place] [address] PCP - General FAMILY PRACTICE 07/17/22 documented as of this encounter
--- OUTSIDE RECORDS SUMMARY | 2024-08-25 03:42 | XMS_ITS | Encounter Summary ---
Author Organization [facility] Address [address] [place] [address] Phone Care Team Providers Care Stationary Boiler Fireman Name Role Phone Servando Torre MD Primary Care Provider [phone] Mariela Denton MD Unavailable [phone] Lexis Barroso OD Unavailable [phone] Reason for Visit * Reason Onset Date Comments Medication Problem 08/24/2024 Med Management 08/24/2024 Encounter Details Date Type Department Care Team (Late st Contact Info) Description 08/24/2024 Telephone [facility] Epilepsy [address] [facility] 6[address] [place] [address] [place] [phone] Adria Burleson MD [address] [facility] [address] [place] [address] Medication Problem; Med Management Social History Tobacco Use Types Packs/Day Years [...] on file Legal Sex Female 9:30 AM KETTLE GIRL Gender Identity Female 04/05/2022 6:17 PM CDT Sexual Orientation Straight 04/05/2022 6: 17 PM CDT documented as of this encounter Miscellaneous Notes * Telephone Encounter - Jenny Parra CMA - 08/24/2024 9:[address] Anthony Patients daughter, Aby phoned today to report that patient has a $600 per month copay on the Briviact medication that was started. Patients daughter did mention that aguilar was able to be met however if there would be another option that would be acceptable to. Patients daughter also noted that patient was limited on medication options per last visit. Did patient discontinue LTG during vEEG recently? AED: Briviact 50mg BID Any recommendations? Jenny Bird LE GIRL documented in this encounter Plan of Treatment Not on file documented as of this encounter Visit Diagnoses Not on filedocumented in this encounter Care Teams Stationary Boiler Fireman Relationship Specialty Start Date End Date Servando Torre MD [address] [address] PCP - General Family Medicine 06/19/22 Mariela Denton MD [address] [place] [address] Referring Physician Gastroenterology 06/19/22 Lexis Barroso OD [address] [place] [address] Wire Walker 09/19/22 documented as of this encounter
--- OUTSIDE RECORDS SUMMARY | 2024-08-25 03:43 | XMS_ITS | Referral Summary ---
Author Organization [facility] Address [address] [place] [address] Care Team Providers Care Energy Auditor Name Role Phone Servando Torre MD Primary Care Provider Mariela Denton MD Unavailable [phone] Lexis Barroso OD Unavailable [phone] Encounters Date Type Department Care Team Description 08/24/2024 Telephone [facility] [address] [facility] 6th [place] [address] [place] [address] Adria Burleson MD Medication Problem; Med Management 08/17/2024 8:26 AM AUTOMATION DEVELOPER - 08/23/2024 5:10 PM AUTOMATION DEVELOPER Hospital Encounter [address] [phone] Adria Burleson MD Discharge Disposition: Discharge to home or self care 08/17/2024 8:00 AM AUTOMATION DEVELOPER Ancillary Procedure [address] [phone] Rene De La O MT Seizure (HCC) 08/16/2024 Orders Only [facility] Medical Group Primary Care at [address] [phone] ProviderSilvestre MD 08/13/2024 Telephone [facility] Neurodiagnostics [address] [place] [address] Karen Lee 08/12/2024 Telephone [facility] Epilepsy [address] [facility] 6th [place] [address] [place] [phone] Ute Miller MD 08/12/2024 Orders Only [facility] Medical Group Primary Care at [address] [phone] Silvestre Ahn MD 08/03/2024 4:00 PM AUTOMATION DEVELOPER - 08/03/2024 11:59 PM AUTOMATION DEVELOPER Hospital Encounter [address] [address] Frequent falls; Syncope, unspecified syncope type; Memory impairment; Essential (primary) hypertension Discharge Disposition: Discharge to home or self care 08/03/2024 8:45 AM AUTOMATION DEVELOPER Lab [facility] Outpatient Lab at [address] [phone] 08/03/2024 8:00 AM AUTOMATION DEVELOPER Ancillary Procedure [facility] Vascular and Vein Surgery at [address] [place] [address] Carotid stenosis, asymptomatic, bilateral 07/28/2024 Orders Only [facility] [address] [place] [address] Chelsie Francisco NP 07/24/2024 Orders Only [facility] [address] [place] [address] Chelsie Francisco NP Frequent falls (Primary Dx); Syncope, unspecified syncope type; Memory impairment; Essential (primary) hypertension; Sleep walking 07/22/2024 7:00 PM AUTOMATION DEVELOPER Office Visit [facility] Medical [facility] Convenient Care at [address] [phone] Lexis Chaves PA Encounter for staple removal (Primary Dx) 07/14/2024 Telephone [facility] Primary Care at [address] [phone] Results 07/12/2024 Orders Only [address] 6th Floor [address] [place] [address] Chelsie Francisco NP 07/12/2024 Orders Only [facility] Primary Care at [address] [phone] Marcell Rucker MD 07/09/2024 Telephone [facility] Epilepsy [facility] 6th [place] [address] [place] [phone] Adria Burleson MD Medication Problem; Request For Order(s) 07/08/2024 3:15 PM AUTOMATION DEVELOPER Office Visit [address] [place] [address] Chelsie Francisco NP Somnolence, daytime (Primary Dx); Memory impairment; Frequent falls; Anxiety 07/05/2024 3:00 PM AUTOMATION DEVELOPER Office Visit [facility] Medical [facility] Primary Care at [address] [phone] Servando Torre MD Encounter for Medicare annual wellness exam (Primary Dx); Mixed diabetic hyperlipidemia associated with type 2 diabetes mellitus (HCC); Hypertension associated with diabetes (HCC); Gastroesophageal reflux disease without esophagitis; At risk for falls; Carotid stenosis, asymptomatic, bilateral 07/02/2024 10:20 AM AUTOMATION DEVELOPER - 07/02/2024 11:59 PM AUTOMATION DEVELOPER Hospital Encounter [address] [address] Hypertension associated with diabetes (HCC); Seizure (HCC); Weakness generalized Discharge Disposition: Discharge to home or self care 07/02/2024 10:15 AM AUTOMATION DEVELOPER Lab [facility] Medical Group Outpatient Lab at [address] [phone] Encounter for Medicare annual wellness exam (Primary Dx) 06/29/2024 Orders Only [address] [place] [phone] Kimberly Nicolas MD Weakness generalized (Primary Dx) 06/18/2024 3:00 PM AUTOMATION DEVELOPER Ancillary Procedure [facility] Medical [facility] Imaging at [address] [phone] Accidental fall, subsequent encounter 06/18/2024 2:55 PM AUTOMATION DEVELOPER Ancillary Procedure [facility] Imaging at [address] [phone] Accidental fall, subsequent encounter 06/18/2024 2:30 PM AUTOMATION DEVELOPER Office Visit [facility] Convenient Care at [address] [phone] Pricilla Olguin NP Accidental fall, subsequent encounter (Primary Dx) 05/28/2024 Telephone [facility] Primary Care at [address] [phone] Servando Torre MD Medical Question/Miscellaneou [...] at: [facility] ([facility] order in [facility] under 'Procedures' tab). 1 each 5 [...] epilepticus 03/17/2023 At risk for falls 03/13/2023 bed bug exterminator (current) use of oral hypoglycemic fuentes gs [...] 05/29 Assessment & Plan (07/05/2024 3:20 PM AUTOMATION DEVELOPER): A(n) yearly Medicare Annual Wellness Visit has [...] months Assessment & Plan (06/26/2023 2:02 PM AUTOMATION DEVELOPER): A(n) yearly Medicare Annual Wellness Visit has [...] months Assessment & Plan (06/23/2022 3:06 PM AUTOMATION DEVELOPER): A(n) initial Medicare Annual Wellness Visit has [...] (06/19/2022): Added automatically from request for surgery [id number] Ear ringing 03/03/2013 Asymmetrical sensorineural hearing loss 03/03/20 13 Stress fracture 07/07/2012 Arthralgia of hip 02/06/2011 Resolved Problems Problem Noted Date Diagnosed Date Resolved Date Hospital discharge follow-up 06/11/2023 08/07/2023 Assessment & Plan (06/11/2023 1:42 PM AUTOMATION DEVELOPER): I have reviewed the hospital record, medications, [...] file Legal Sex Female 9:30 AM AUTOMATION DEVELOPER Gender Identity Female 04/05/2022 6:17 PM CDT Sexual Orientation Straight 04/05/2022 6: 17 PM CDT Last Filed Vital Signs Vital Sign Reading Time Taken Comments Blood Pressure 147/64 08/23/2024 7:40 AM AUTOMATION DEVELOPER Pulse 64 08/23/2024 7:40 AM AUTOMATION DEVELOPER Temperature 37 ??C (98.6 ??F) 08/23/2024 7:40 AM AUTOMATION DEVELOPER Respiratory Rate 16 08/23/2024 7:40 AM AUTOMATION DEVELOPER Oxygen Saturation 98% 08/23/2024 7:40 AM AUTOMATION DEVELOPER Inhaled Oxygen Concentration - - Weight 65.8 kg (145 lb 1 oz) 08/17/2024 6:45 PM AUTOMATION DEVELOPER Height 157.5 cm (5' 2.01 ) 08/17/2024 6:45 PM CS T Body Mass Index 26.53 08/17/2024 6:45 PM AUTOMATION DEVELOPER Plan of Treatment Not on file Procedures Procedure Name Priority Date/Time Associated Diagnosis Comments POCT GLUCOSE DEVICE Routine 08/22/2024 6 :24 AM AUTOMATION DEVELOPER POCT GLUCOSE DEVICE Routine 08/21/2024 6 :06 AM AUTOMATION DEVELOPER POCT GLUCOSE DEVICE Routine 08/18/2024 5 :09 PM AUTOMATION DEVELOPER POCT GLUCOSE DEVICE Routine 08/18/2024 1 1:18 AM AUTOMATION DEVELOPER POCT GLUCOSE DEVICE Routine 08/18/2024 8 :02 AM AUTOMATION DEVELOPER BRAIN, BRAIN STEM MAGNETIC RESONANCE (MR) IMAGING Schedule Routine, Read Routine (OP Routine) 08/12/2024 1:35 PM AUTOMATION DEVELOPER XR CHEST 1 VIEW Schedule Routine, Read Routine (OP Routine) 08/11/2024 9:53 AM AUTOMATION DEVELOPER US CAROTIDS DUPLEX BILATERAL Schedule Routine, Read Routine (OP Routine) 08/03/2024 8:46 AM AUTOMATION DEVELOPER Carotid stenosis, asymptomatic, bilateral METHYLMALONIC ACID, SERUM Routine 08/03/2024 8:30 AM AUTOMATION DEVELOPER Frequent falls Syncope, unspecified syncope type Memory impairment HOMOCYSTEINE Routine 08/03/2024 8:30 AM AUTOMATION DEVELOPER Frequent falls Syncope, unspecified syncope type Memory impairment Essential (primary) hypertension VITAMIN B12 Routine 08/03/2024 8:30 AM AUTOMATION DEVELOPER Frequent falls Syncope, unspecified syncope type Memory impairment HEAD COMPUTED TOMOGRAPHY (CT) WITHOUT CONTRAST Schedule Routine, Read Routine (OP Routine) 07/11/2024 9:14 AM AUTOMATION DEVELOPER URINALYSIS, MICROSCOPIC ONLY Routine 07/02/2024 10:20 AM AUTOMATION DEVELOPER Weakness generalized EGFR Routine 07/02/2024 10:20 AM AUTOMATION DEVELOPER Weakness generalized DIFFERENTIAL AUTO Routine 07/02/2024 10: 20 AM AUTOMATION DEVELOPER Weakness generalized CBC WITH AUTO DIFFERENTIAL Routine 07/02/2024 10:20 AM AUTOMATION DEVELOPER Weakness generalized COMPREHENSIVE METABOLIC PANEL Routine 07/02/2024 10:20 AM AUTOMATION DEVELOPER Weakness generalized ALBUMIN CREATININE RATIO, URINE Routine 07/02/2024 10:20 AM AUTOMATION DEVELOPER Hypertension associated with diabetes (HCC) HEMOGLOBIN A1C Routine 07/02/2024 10:20 AM AUTOMATION DEVELOPER Hypertension associated with diabetes (HCC) LAMOTRIGINE LEVEL Routine 07/02/2024 10: 20 AM AUTOMATION DEVELOPER Seizure (HCC) LIPID PANEL Routine 07/02/2024 10:20 AM AUTOMATION DEVELOPER Hypertension associated with diabetes (HCC) URINALYSIS AND REFLEX TO MICROSCOPIC AND CULTURE Routine 07/02/2024 10:20 AM AUTOMATION DEVELOPER Weakness generalized XR SPINE LUMBAR 2 OR 3 VIEWS Schedule SHIRA, Read SHIRA (Appt Today, Awaiting Results) 06/18/2024 3:04 PM AUTOMATION DEVELOPER Accidental fall, subsequent encounter XR HIP LEFT 2 OR 3 VIEWS Schedule SHIRA, Read SHIRA (Appt Today, Awaiting Results) 06/18/2024 3:04 PM AUTOMATION DEVELOPER Accidental fall, subsequent encounter DIABETIC EYE EXAM Routine 06/25/2023 DEXA AXIAL SKELETON BONE DENSITY 1 OR MORE SITES Schedule Routine, Read Routine (OP Routine) 12/12/2022 2:33 PM CDT Screening for osteoporosis Asymptomatic menopausal state from Last 3 Months or Most Recently Relevant to Health Maintenance Results * POCT glucose (08/22/2024 6:24 AM AUTOMATION DEVELOPER) Glucose, POC 141 70 - 199 mg/dL Blood 08/22/2024 6:24 AM AUTOMATION DEVELOPER 08/22/2024 6:24 AM AUTOMATION DEVELOPER us Adrai Diop MD LAB POCT ORD ERABLES - DEVICE Final Result Performing Organization Address [facility] de Phone Number [facility] Department [place] [address] * POCT glucose (08/21/2024 6:06 AM AUTOMATION DEVELOPER) Glucose, POC 126 70 - 199 mg/dL Blood 08/21/2024 6:06 AM AUTOMATION DEVELOPER 08/21/2024 6:06 AM AUTOMATION DEVELOPER us Adria Diop MD LAB POCT ORD ERABLES - DEVICE Final Result Performing Organization Address [facility] de Phone Number [facility] [place] [place] [address] * POCT glucose (08/18/2024 5:09 PM AUTOMATION DEVELOPER) Glucose, POC 99 70 - 199 mg/dL Blood 08/18/2024 5:09 PM AUTOMATION DEVELOPER 08/18/2024 5:09 PM AUTOMATION DEVELOPER us Adria Diop MD LAB POCT ORD ERABLES - DEVICE Final Result Performing Organization Address [facility]/ZIP Co de Phone Number [facility] [place] [address] * POCT glucose (08/18/2024 11:18 AM AUTOMATION DEVELOPER) Glucose, POC 178 70 - 199 mg/dL Blood 08/18/2024 11:1 8 AM AUTOMATION DEVELOPER 08/18/2024 11:18 AM AUTOMATION DEVELOPER Adria Diop MD LAB POCT ORD ERABLES - DEVICE Final Result Performing Organization Address [facility] Co de Phone Number [facility] [place] [address] * POCT glucose (08/18/2024 8:02 AM AUTOMATION DEVELOPER) Glucose, POC 130 70 - 199 mg/dL Blood 08/18/2024 8:02 AM AUTOMATION DEVELOPER 08/18/2024 8:02 AM AUTOMATION DEVELOPER Adria Diop MD LAB POCT ORD ERABLES - DEVICE Final Result Performing Organization Address [facility] de Phone Number [facility] Department [place] [address] * BRAIN, BRAIN STEM MAGNETIC RESONANCE (MR) IMAGING (08/12/2024 1:35 PM AUTOMATION DEVELOPER) Anatomical Region Laterality Modality N/A Magnetic Resonan ce Historical Provider IMG MRI PROCEDURES Final Result * XR Chest 1 View (08/11/2024 9:53 AM AUTOMATION DEVELOPER) Anatomical Region Laterality Modality Body, Chest N/A Radiographic Keyanna ging Historical Provider MD GRAHAM XR PROCEDURES Final R esult * Vl US Carotids (08/03/2024 8:46 AM AUTOMATION DEVELOPER) Anatomical Region Laterality Modality Vascular Bilateral Ultrasound 08/03/2024 8:26 AM AUTOMATION DEVELOPER Narrative 08/03/2024 9:47 AM AUTOMATION DEVELOPER Vascular & Vein Surgery [address] [place] [address]. [place] [address] Carotid Duplex Ultrasound Report Patient Name: RADHA ALLEN K : 1945 (79y 4m) Study Date: 08/03/2024 8:26:13 AM Gender: F Nautical Instrument Mechanic: Location: [facility] Ref Provider: SERVANDO TORRE ?Quality: [...] Gino Correa MD B 08/03/2024 9:46:05 AM AUTOMATION DEVELOPER Procedure Note Gino Correa MD - 08/03/2024 Vascular & Vein Surgery [address] [place] [address] Carotid Duplex Ultrasound Report Patient Name: RADHA ALLEN K : 1945 (79y 4m) Study Date: 08/03/2024 8:26:13 AM Gender: F Nautical Instrument Mechanic: Location: [facility] Provider: SERVANDO TORRE Quality: Adequate Order [...] Gino Correa MD B 08/03/2024 9:46:05 AM AUTOMATION DEVELOPER us Servando Torre MD [facility] US PROCEDURES Final Res ult * Methylmalonic acid, serum (08/03/2024 8:30 AM AUTOMATION DEVELOPER) MMA 0.25 <=0.40 nmol/mL [facility] ref Lab Comment: ADDITIONAL INFORMATION This test was developed and its performance characteristics determined by [facility] in a manner consistent with CLIA requirements. This test has not been cleared or approved by the U.S. Food and Drug Administration. Test Performed by: [facility] Laboratories - [address] [address] Adult Crossing Guard: Liu Davis Ph.D.; CLIA# [id number] Blood 08/03/2024 8:30 AM AUTOMATION DEVELOPER 08/03/2024 4:21 PM AUTOMATION DEVELOPER us Chelsie Francisco NP LAB BLOOD ORDERABLES F inal Result [facility] [address] [place] [address] [facility] ref [facility] * Homocysteine (08/03/2024 8:30 AM AUTOMATION DEVELOPER) [facility] Homocysteine 14.0 0.0 - 15.0 mcmol/L Comment:Testing performed by : [facility], [address] [place]., [address] Blood 08/03/2024 8:30 AM AUTOMATION DEVELOPER 08/04/2024 10:21 AM AUTOMATION DEVELOPER Chelsie Francisco NETWORK SECURITY ANALYST LAB BLOOD ORDERABLES F inal Result Performing Organization Address [facility] Co de Phone Number [facility] [address] Department [employer] [place], [place] [phone] * Vitamin B12 (08/03/2024 8:30 AM AUTOMATION DEVELOPER) [facility] Vitamin B12 350 230 - 1,250 pg/mL Blood 08/03/2024 8:30 AM AUTOMATION DEVELOPER 08/03/2024 4:21 PM AUTOMATION DEVELOPER Chelsie Francisco NETWORK SECURITY ANALYST LAB BLOOD ORDERABLES F inal Result Performing Organization Address [facility] de Phone Number [facility]THE[facility] [address] [employer] [place], [place] [phone] * HEAD COMPUTED TOMOGRAPHY (CT) WITHOUT CONTRAST (07/11/2024 9:14 AM AUTOMATION DEVELOPER) Anatomical Region Laterality Modality N/A Computed Tomogra phy Marcell Rucker MD IMG CT PROCEDURES Final Result * eGFR (07/02/2024 10:20 AM AUTOMATION DEVELOPER) [facility] eGFR 66 >=60 mL/min/1. 73 m2 Comment: [...] reviewed 2021. Blood 07/02/2024 10:2 0 AM AUTOMATION DEVELOPER 07/02/2024 5:35 PM AUTOMATION DEVELOPER us Kimberly Nicolas MD LAB BLOOD ORDERABLES Final Resu lt [facility] [address] Department [place] [address] * Differential, auto (07/02/2024 10:20 AM AUTOMATION DEVELOPER) Neutrophil abs 5.1 1.5 - 6.5 K/cumm Imm gran abs 0.0 0.0 - 0.1 K/cumm [facility] Lymphocyte abs 1.4 0.8 - 3.3 K/cumm [facility] Monocyte abs 0.7 0.2 - 0.8 K/cumm [facility] Eosinophil abs 0.3 0.0 - 0.5 K/cumm [facility] Basophil abs 0.0 0.0 - 0.1 K/cumm [facility] Neutrophil pct 68.0 % [facility] Comment: Interpretive Data Percent cell count [...] on 2017. Blood 07/02/2024 10:2 0 AM AUTOMATION DEVELOPER 07/02/2024 5:00 PM AUTOMATION DEVELOPER us Kimberly Nicolas MD LAB BLOOD ORDERABLES Final Resu lt [facility] [address] Department [place] [address] * (ABNORMAL) Urinalysis reflex to microscopic and culture Urine, clean voided (07/02/2024 10:20 AM AUTOMATION DEVELOPER) Color, ur Yellow Yellow Clarity, ur Clear Clear [facility] Specific gravity, ur 1.012 1.003 - 1.030 AILEEN pH, urine 6.5 [facility] Comment: Interpretive Data ? Urine pH is affected by diet, medications, systemic acid-base disturbances, and renal tubular function. ??pH may affect urinary stone formation. ??For example, urine pH below 6.0 may help reduce the tendency for calcium phosphate stones and pH greater than 6.0 may reduce the tendency for uric acid stone formation. Source: [facility] Current Interpretive Data was last revised on [...] Reflex to microscopic UA will be performed. [facility] Urine, clean voided 07/02/2024 10:20 AM AUTOMATION DEVELOPER 07/02/2024 5:00 PM AUTOMATION DEVELOPER us Kimberly Nicolas MD LAB MICROBIOLOGY - [facility] MIA LEARY Final Result [facility] [address] Department [place] [address] * (ABNORMAL) CBC with auto differential (07/02/2024 10:20 AM AUTOMATION DEVELOPER) WBC 7.4 3.8 - 9.9 K/cumm Hgb [...] K/cumm CERNER Blood 07/02/2024 10:2 0 AM AUTOMATION DEVELOPER 07/02/2024 5:00 PM AUTOMATION DEVELOPER Kimberly Nicolas MD LAB BLOOD ORDERABLES Final Resu lt Performing Organization Address [facility] Co de Phone Number [facility] [address] [place] [address] * (ABNORMAL) Albumin Creatinine Ratio, Urine (07/02/2024 10:20 AM AUTOMATION DEVELOPER) Albumin Ur 45.5 mg/L Comment: Interpretive Data No reference range established. Current interpretive data was last revised 2018. Creatinine Ur 73.7 mg/dL [facility] Comment: Interpretive Data No reference range established. Current interpretive data was last revised 2018. Albumin Creatinine Ratio, Ur 62(H) 1 - 29 mg/g [facility] Urine 07/02/2024 10:2 0 AM AUTOMATION DEVELOPER 07/02/2024 5:00 PM AUTOMATION DEVELOPER Servando Torre MD LAB URINE ORDERABLES Final Result Performing Organization Address [facility] de Phone Number [facility] [address] [facility] [place] [address] * Lamotrigine level (07/02/2024 10:20 AM AUTOMATION DEVELOPER) Lamotrigine 9.6 3.0 - 15.0 mcg/mL [facility] ref Lab Comment: ADDITIONAL INFORMATION This test was developed and its performance characteristics determined by [facility] in a manner consistent with CLIA requirements. This test has not been cleared or approved by the U.S. Food and Drug Administration. Test Performed by: [facility] - [address] [address] Adult Crossing Guard: Liu Davis Ph.D.; CLIA# [id number] Blood 07/02/2024 10:2 0 AM AUTOMATION DEVELOPER 07/02/2024 5:00 PM AUTOMATION DEVELOPER Servando Torre MD LAB BLOOD ORDERABLES Final Result Performing Organization Address [facility] de Phone Number [facility] [address] Department [place] [address] [facility] ref [facility] * (ABNORMAL) Urinalysis, microscopic only (07/02/2024 10:20 AM AUTOMATION DEVELOPER) WBC, ur 6-10(A) 0 - 5 /HPF RBC, ur 3-5(A) 0 - 2 /HPF [facility] Epithelial cells, squamous, ur 1-5 0 - 5 /HPF [facility] Mucous, ur Present(A) [facility] Culture Reflex Comment Reflex conditions for urine culture (WBC >10) not met. [facility] Urine, clean voided 07/02/2024 10:20 AM AUTOMATION DEVELOPER 07/02/2024 5:00 PM AUTOMATION DEVELOPER Kimberly Nicolas MD LAB URINE ORDERABLES Final Resu lt Performing Organization Address [facility] Phone Number [facility] [address] [place] [address] * (ABNORMAL) Hemoglobin A1c (07/02/2024 10:20 AM AUTOMATION DEVELOPER) Hgb A1C 6.4(H) 4.0 - 5.6 % Estimated Average Glucose 137 mg/dL [facility] Comment: The ADA recommends reporting an estimated Average Glucose (eAG) with all Hemoglobin A1c results using the equation derived from a study of 507 normal and diabetic adults. ??Minority populations were underrepresented and children were not included. ?? (Diabetes Care 31:5649-9683, 2008). ??The eAG is not equivalent to a fasting glucose. Blood 07/02/2024 10:2 0 AM AUTOMATION DEVELOPER 07/02/2024 5:00 PM AUTOMATION DEVELOPER Servando Torre MD LAB BLOOD ORDERABLES Final Result Performing Organization Address [facility] de Phone Number [facility] [address] Department [place] [address] * (ABNORMAL) Lipid panel (07/02/2024 10:20 AM AUTOMATION DEVELOPER) Cholesterol 190 30 - 199 mg/dL Comment: [...] revised on 2018. Chol/HDL ratio 4 [facility] Blood 07/02/2024 10:2 0 AM AUTOMATION DEVELOPER 07/02/2024 5:00 PM AUTOMATION DEVELOPER us Servando Torre MD LAB BLOOD ORDERABLES Final Result [facility] [address] Department [place] [address] * (ABNORMAL) Comprehensive metabolic panel (07/02/2024 10:20 AM AUTOMATION DEVELOPER) Sodium 141 135 - 145 mmol/L Potassium, pl 4.1 3.3 - 4.9 mmol/L [facility] Chloride 103 97 - 110 mmol/L [facility] CO2 27 22 - 32 mmol/L [facility] Anion gap 11 2 - 15 mmol/L [facility] BUN 16 6 - 25 mg/dL [facility] Creatinine 0.88 0.60 - 1.10 mg/dL [facility] Glucose 128 70 - 199 mg/dL [facility] Comment: Interpretive Data Fasting glucose >/= [...] classification and Diagnosis of Diabetes Diabetes Care 2022; 46: S19-S40. Current interpretive data was last [...] CERNER CH Blood 07/02/2024 10:2 0 AM AUTOMATION DEVELOPER 07/02/2024 5:00 PM AUTOMATION DEVELOPER us Kimberly Nicolas MD LAB BLOOD ORDERABLES Final Resu lt [facility] [address] Department [place] [address] * XR Spine Lumbar 2 or 3 Views (06/18/2024 3:04 PM AUTOMATION DEVELOPER) Anatomical Region Laterality Modality Spine N/A Digital Radiogra phy 06/18/2024 5:05 PM AUTOMATION DEVELOPER Narrative 06/18/2024 5:13 PM AUTOMATION DEVELOPER EXAM DESCRIPTION: XR HIP LEFT 2 OR [...] no change from prior CT. There is xsko-[id number] multilevel degenerative endplate change with no acute [...] D: ??06/18/2024 5:13 PM T: Report ID: [id number] Reading Location: ??[id number] Procedure Note Teofilo Rand MD - 06/18/2024 [...] no change from prior CT. There is xumk-on-sucamszk multilevel degenerative endplate change with no acute [...] signed by Teofilo ZAFAR T: Report ID: [id number] Reading Location: [place] [address] Pricilla Olguin NP IMG XR PROCEDURES Final Result * XR Hip Left 2+ Vw (06/18/2024 3:04 PM AUTOMATION DEVELOPER) Anatomical Region Laterality Modality Lower Extremities, Hip, Pelvis Left D igital Radiography 06/18/2024 5:05 PM AUTOMATION DEVELOPER Narrative 06/18/2024 5:13 PM AUTOMATION DEVELOPER EXAM DESCRIPTION: XR HIP LEFT 2 OR [...] no change from prior CT. There is [id number]-[id number] multilevel degenerative endplate change with no acute [...] D: ??06/18/2024 5:13 PM T: Report ID: [id number] Reading Location: ??[id number] Procedure Note Teofilo Rand MD - 06/18/2024 [...] no change from prior CT. There is [id number] multilevel degenerative endplate change with no acute [...] Teofilo Rand M.D. MJ T: Report ID: [id number] Reading Location: [id number] Pricilla Olguin NP IMG XR PROCEDURES Final [...] Bone mineral density was performed on a HoloPhloronol Discovery Densitometer. ?? Based on machine cross-calibration [...] density scan were prepared by Myah Lacy(R) ALLENT ??who is accredited by the International Society of Clinical Densitometry. The overall patient assessment and scan interpretation were performed by Josep Mathew MD ??who is certified by the International Society of Clinical Densitometry. [id number] Servando Torre MD IMG DXA PROCEDURES Final Re sult from Last 3 Months or Most Recently Relevant to Health Maintenance Insurance MEDICARE [facility] MEDICARE SUPPLEMENT MEDICARE [facility] MEDICARE SUPPLEMENT MEDICARE [facility] Member Subscriber Plan / Payer ( fective 2022-Present) Name:Rdaha Allen Komal Relation to Subscriber:Self Name:AllenRadha Komal Payer ID:[id number] (NAIC) Group ID:[id number] Type:BC OTHER Address: [id number] [place] [id number] MEDICARE [facility] Member Subscriber Plan / Payer ( fective 2022-Present) Name:Radha Allen Relation to Subscriber:Self Name:Alejandro Radha Komal Payer ID:[id number] (NAIC) Group ID:[id number] Type:BC OTHER Address: [id number] [place] [phone] Advance Directives For more information, please contact: [phone] * Full Code (Latest Code Status on [...] 9:30 AM 11/29/2022 3:28 PM Care Teams Energy Auditor Relationship Specialty Start Date End Date Servando Torre MD [address] [facility] [address] [place] [address] PCP - General Family Medicine 06/19/22 Mariela Denton MD [address] [place] [address] Referring Physician Gastroenterology 06/19/22 Lexis Barroso OD [address] [place] [id number] [address] Shear Operator 09/19/22
[2024-08-25 03:47] VITALS: BP 135/59; PULSE 63; RESP 14; TEMP 36.4; O2SAT 96
[2024-08-25 06:33] VITALS: O2SAT 99
[2024-08-25 06:34] VITALS: BP 160/73; O2SAT 99
[2024-08-25 06:45] VITALS: O2SAT 97
[2024-08-25 06:46] VITALS: BP 153/68; O2SAT 93
--- OUTSIDE RECORDS SUMMARY | 2024-08-25 07:05 | XMS_ITS | Clinical Summary ---
Author Organization [facility] Address [address] [place] [address] Care Team Providers Care Overcoil Stepper Name Role Phone Servando Torre MD Primary Care Provider Mariela Denton MD Unavailable [phone] Lexis Barroso OD Unavailable [phone]- [phone] Allergies Active Allergy Reactions Criticality Noted Date [...] at: [facility] ([facility] order in [facility] under 'Procedures' tab). 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 [...] 05/29 Assessment & Plan (07/05/2024 3:20 PM TELEPHONE MECHANIC): A(n) yearly Medicare Annual Wellness Visit has [...] months Assessment & Plan (06/26/2023 2:02 PM TELEPHONE MECHANIC): A(n) yearly Medicare Annual Wellness Visit has [...] months Assessment & Plan (06/23/2022 3:06 PM TELEPHONE MECHANIC): A(n) initial Medicare Annual Wellness Visit has [...] (06/19/2022): Added automatically from request for surgery [id number] Ear ringing 03/03/2013 Asymmetrical sensorineural hearing loss 03/03/20 13 Stress fracture 07/07/2012 Arthralgia of hip 02/06/2011 Resolved Problems Problem Noted Date Diagnosed Date Resolved Date Hospital discharge follow-up 06/11/2023 08/07/2023 Assessment & Plan (06/11/2023 1:42 PM TELEPHONE MECHANIC): I have reviewed the hospital record, medications, and relevant testing from [facility] K Alejandro's recent admission. Complications and discharge [...] Type Department Care Team Description 08/24/2024 Telephone [facility] Epilepsy [address] 6th [place] [address] [place] [address] Adria Burleson MD Medication Problem; Med Management 08/17/2024 8:26 AM TELEPHONE MECHANIC - 08/23/2024 5:10 PM TELEPHONE MECHANIC Hospital Encounter [address] [phone] Adria Burleson MD Discharge Disposition: Discharge to home or self care 08/17/2024 8:00 AM TELEPHONE MECHANIC Ancillary Procedure [address] [phone] Rene De La O MT Seizure (HCC) 08/16/2024 Orders Only [facility] Primary Care at [address] [phone] Silvestre Ahn MD 08/13/2024 Telephone [facility] Neurodiagnostics [address] [place] [phone] Karen Lee 08/12/2024 Telephone [facility] Epilepsy [address] 6th [place] [address] [place] [address] Ute Miller MD 08/12/2024 Orders Only [facility] Primary Care at [address] [phone] ProviderSilvestre MD 08/03/2024 4:00 PM TELEPHONE MECHANIC - 08/03/2024 11:59 PM TELEPHONE MECHANIC Hospital Encounter [address] [address] Frequent falls; Syncope, unspecified syncope type; Memory impairment; Essential (primary) hypertension Discharge Disposition: Discharge to home or self care 08/03/2024 8:45 AM TELEPHONE MECHANIC Lab [facility] Outpatient Lab at [address] [phone] 08/03/2024 8:00 AM TELEPHONE MECHANIC Ancillary Procedure [facility] Vascular and Vein Surgery at [address] [place] [phone] Carotid stenosis, asymptomatic, bilateral 07/28/2024 Orders Only [address] [place] [phone] Chelsie Francisco NP 07/24/2024 Orders Only [address] [place] [phone] Chelsie Francisco NP Frequent falls (Primary Dx); Syncope, unspecified syncope type; Memory impairment; Essential (primary) hypertension; Sleep walking 07/22/2024 7:00 PM TELEPHONE MECHANIC Office Visit [facility] Convenient Care at [address] [phone] Lexis Chaves PA Encounter for staple removal (Primary Dx) 07/14/2024 Telephone [facility] Primary Care at [address] [phone] Servando Torre MD CT Results 07/12/2024 Orders Only [address] Floor [address] [place] [phone] Chelsie Francisco NP 07/12/2024 Orders Only [facility] Primary Care at [address] [phone] Marcell Rucker MD 07/09/2024 Telephone [facility] Epilepsy [address] [facility] [address] [place] [address] [place] [phone] Adria Burleson MD Medication Problem; Request For Order(s) 07/08/2024 3:15 PM TELEPHONE MECHANIC Office Visit [facility] [address] [place] [address] Chelsie Francisco NP Somnolence, daytime (Primary Dx); Memory impairment; Frequent falls; Anxiety 07/05/2024 3:00 PM TELEPHONE MECHANIC Office Visit [facility] Primary Care at [address] [phone] Servando Torre MD Encounter for Medicare annual wellness exam (Primary Dx); Mixed diabetic hyperlipidemia associated with type 2 diabetes mellitus (HCC); Hypertension associated with diabetes (HCC); Gastroesophageal reflux disease without esophagitis; At risk for falls; Carotid stenosis, asymptomatic, bilateral 07/02/2024 10:20 AM TELEPHONE MECHANIC - 07/02/2024 11:59 PM TELEPHONE MECHANIC Hospital Encounter [address] [address] Hypertension associated with diabetes (HCC); Seizure (HCC); Weakness generalized Discharge Disposition: Discharge to home or self care 07/02/2024 10:15 AM TELEPHONE MECHANIC Lab [facility] Outpatient Lab at [address] [phone] Encounter for Medicare annual wellness exam (Primary Dx) 06/29/2024 Orders Only [facility] [address] [place] [address] Kimberly Nicolas MD Weakness generalized (Primary Dx) 06/18/2024 3:00 PM TELEPHONE MECHANIC Ancillary Procedure [facility] Imaging at [address] [phone] Accidental fall, subsequent encounter 06/18/2024 2:55 PM TELEPHONE MECHANIC Ancillary Procedure [facility] Imaging at [address] [phone] Accidental fall, subsequent encounter 06/18/2024 2:30 PM TELEPHONE MECHANIC Office Visit [facility] Medical [facility] Convenient Care at [address] [phone] Pricilla Olguin NP Accidental fall, subsequent encounter (Primary Dx) 05/28/2024 Telephone [facility] Primary Care at [address] [phone] Servando Torre MD Medical Question/Miscellaneou [...] file Legal Sex Female 9:30 AM TELEPHONE MECHANIC Gender Identity Female 04/05/2022 6:17 PM CDT Sexual Orientation Straight 04/05/2022 6: 17 PM CDT Obstetrics History Last Filed Vital Signs Vital Sign Reading Time Taken Comments Blood Pressure 147/64 08/23/2024 7:40 AM TELEPHONE MECHANIC Pulse 64 08/23/2024 7:40 AM TELEPHONE MECHANIC Temperature 37 ??C (98.6 ??F) 08/23/2024 7:40 AM TELEPHONE MECHANIC Respiratory Rate 16 08/23/2024 7:40 AM TELEPHONE MECHANIC Oxygen Saturation 98% 08/23/2024 7:40 AM TELEPHONE MECHANIC Inhaled Oxygen Concentration - - Weight 65.8 kg (145 lb 1 oz) 08/17/2024 6:45 PM TELEPHONE MECHANIC Height 157.5 cm (5' 2.01 ) 08/17/2024 6:45 PM CS T Body Mass Index 26.53 08/17/2024 6:45 PM TELEPHONE MECHANIC Plan of Treatment Health Maintenance Due Date [...] GLUCOSE DEVICE Routine 08/22/2024 6 :24 AM TELEPHONE MECHANIC POCT GLUCOSE DEVICE Routine 08/21/2024 6 :06 AM TELEPHONE MECHANIC POCT GLUCOSE DEVICE Routine 08/18/2024 5 :09 PM TELEPHONE MECHANIC POCT GLUCOSE DEVICE Routine 08/18/2024 1 1:18 AM TELEPHONE MECHANIC POCT GLUCOSE DEVICE Routine 08/18/2024 8 :02 AM TELEPHONE MECHANIC BRAIN, BRAIN STEM MAGNETIC RESONANCE (MR) IMAGING Schedule Routine, Read Routine (OP Routine) 08/12/2024 1:35 PM TELEPHONE MECHANIC XR CHEST 1 VIEW Schedule Routine, Read Routine (OP Routine) 08/11/2024 9:53 AM TELEPHONE MECHANIC US CAROTIDS DUPLEX BILATERAL Schedule Routine, Read Routine (OP Routine) 08/03/2024 8:46 AM TELEPHONE MECHANIC Carotid stenosis, asymptomatic, bilateral METHYLMALONIC ACID, SERUM Routine 08/03/2024 8:30 AM TELEPHONE MECHANIC Frequent falls Syncope, unspecified syncope type Memory impairment HOMOCYSTEINE Routine 08/03/2024 8:30 AM TELEPHONE MECHANIC Frequent falls Syncope, unspecified syncope type Memory impairment Essential (primary) hypertension VITAMIN B12 Routine 08/03/2024 8:30 AM TELEPHONE MECHANIC Frequent falls Syncope, unspecified syncope type Memory impairment HEAD COMPUTED TOMOGRAPHY (CT) WITHOUT CONTRAST Schedule Routine, Read Routine (OP Routine) 07/11/2024 9:14 AM TELEPHONE MECHANIC URINALYSIS, MICROSCOPIC ONLY Routine 07/02/2024 10:20 AM TELEPHONE MECHANIC Weakness generalized EGFR Routine 07/02/2024 10:20 AM TELEPHONE MECHANIC Weakness generalized DIFFERENTIAL AUTO Routine 07/02/2024 10: 20 AM TELEPHONE MECHANIC Weakness generalized CBC WITH AUTO DIFFERENTIAL Routine 07/02/2024 10:20 AM TELEPHONE MECHANIC Weakness generalized COMPREHENSIVE METABOLIC PANEL Routine 07/02/2024 10:20 AM TELEPHONE MECHANIC Weakness generalized ALBUMIN CREATININE RATIO, URINE Routine 07/02/2024 10:20 AM TELEPHONE MECHANIC Hypertension associated with diabetes (HCC) HEMOGLOBIN A1C Routine 07/02/2024 10:20 AM TELEPHONE MECHANIC Hypertension associated with diabetes (HCC) LAMOTRIGINE LEVEL Routine 07/02/2024 10: 20 AM TELEPHONE MECHANIC Seizure (HCC) LIPID PANEL Routine 07/02/2024 10:20 AM TELEPHONE MECHANIC Hypertension associated with diabetes (HCC) URINALYSIS AND REFLEX TO MICROSCOPIC AND CULTURE Routine 07/02/2024 10:20 AM TELEPHONE MECHANIC Weakness generalized XR SPINE LUMBAR 2 OR 3 VIEWS Schedule SHIRA, Read SHIRA (Appt Today, Awaiting Results) 06/18/2024 3:04 PM TELEPHONE MECHANIC Accidental fall, subsequent encounter XR HIP LEFT 2 OR 3 VIEWS Schedule SHIRA, Read SHIRA (Appt Today, Awaiting Results) 06/18/2024 3:04 PM TELEPHONE MECHANIC Accidental fall, subsequent encounter DIABETIC EYE EXAM Routine 06/25/2023 DEXA AXIAL SKELETON BONE DENSITY 1 OR MORE SITES Schedule Routine, Read Routine (OP Routine) 12/12/2022 2:33 PM CDT Screening for osteoporosis Asymptomatic menopausal state from Last 3 Months or Most Recently Relevant to Health Maintenance Results * POCT glucose (08/22/2024 6:24 AM TELEPHONE MECHANIC) Glucose, POC 141 70 - 199 mg/dL Blood 08/22/2024 6:24 AM TELEPHONE MECHANIC 08/22/2024 6:24 AM TELEPHONE MECHANIC Adria Diop MD LAB POCT ORD ERABLES - DEVICE Final Result Performing Organization Address [facility] Co de Phone Number [facility] [place] [address] * POCT glucose (08/21/2024 6:06 AM TELEPHONE MECHANIC) Glucose, POC 126 70 - 199 mg/dL Blood 08/21/2024 6:06 AM TELEPHONE MECHANIC 08/21/2024 6:06 AM TELEPHONE MECHANIC us Adria Diop MD LAB POCT ORD ERABLES - DEVICE Final Result Performing Organization Address [facility] Co de Phone Number [facility] Department [place] [address] * POCT glucose (08/18/2024 5:09 PM TELEPHONE MECHANIC) Glucose, POC 99 70 - 199 mg/dL Blood 08/18/2024 5:09 PM TELEPHONE MECHANIC 08/18/2024 5:09 PM TELEPHONE MECHANIC Adria Diop MD LAB POCT ORD ERABLES - DEVICE Final Result Performing Organization Address [facility] Co de Phone Number [facility] [place] [employer] [place] [address] * POCT glucose (08/18/2024 11:18 AM TELEPHONE MECHANIC) Glucose, POC 178 70 - 199 mg/dL Blood 08/18/2024 11:1 8 AM TELEPHONE MECHANIC 08/18/2024 11:18 AM TELEPHONE MECHANIC Adria Diop MD LAB POCT ORD ERABLES - DEVICE Final Result Performing Organization Address [facility] Co de Phone Number [facility] [place] [employer] [place] [address] * POCT glucose (08/18/2024 8:02 AM TELEPHONE MECHANIC) Glucose, POC 130 70 - 199 mg/dL Blood 08/18/2024 8:02 AM TELEPHONE MECHANIC 08/18/2024 8:02 AM TELEPHONE MECHANIC Adria Diop MD LAB POCT ORD ERABLES - DEVICE Final Result Performing Organization Address [facility] Co de Phone Number [facility] [place] [employer] [place] [address] * BRAIN, BRAIN STEM MAGNETIC RESONANCE (MR) IMAGING (08/12/2024 1:35 PM TELEPHONE MECHANIC) Anatomical Region Laterality Modality N/A Magnetic Resonan ce us Historical Provider IMG MRI PROCEDURES Final Result * XR Chest 1 View (08/11/2024 9:53 AM TELEPHONE MECHANIC) Anatomical Region Laterality Modality Body, Chest N/A Radiographic Keyanna ging us Historical Provider MD GRAHAM XR PROCEDURES Final R esult * Vl US Carotids (08/03/2024 8:46 AM TELEPHONE MECHANIC) Anatomical Region Laterality Modality Vascular Bilateral Ultrasound 08/03/2024 8:26 AM TELEPHONE MECHANIC Narrative 08/03/2024 9:47 AM TELEPHONE MECHANIC Vascular & Vein Surgery [address] [facility] [place] [address] Carotid Duplex Ultrasound Report Patient Name: RADHA ALLEN K : 1945 (79y 4m) Study Date: 08/03/2024 8:26:13 AM Gender: F Clinical Social Work Aide: Location: [facility] Ref Provider: SERVANDO TORRE ?Quality: [...] Gino Correa MD B 08/03/2024 9:46:05 AM TELEPHONE MECHANIC Procedure Note Gino Correa MD - 08/03/2024 Vascular & Vein Surgery [address] [place] [address] Carotid Duplex Ultrasound Report Patient Name: RADHA ALLEN K : 1945 (79y 4m) Study Date: 08/03/2024 8:26:13 AM Gender: F Clinical Social Work Aide: Location: [facility] Ref Provider: SERVANDO TORRE Quality: Adequate Order [...] Gino Correa MD Estuardo 08/03/2024 9:46:05 AM TELEPHONE MECHANIC Servando Torre MD [facility] PROCEDURES Final Res ult * Methylmalonic acid, serum (08/03/2024 8:30 AM TELEPHONE MECHANIC) MMA 0.25 <=0.40 nmol/mL [facility] ref Lab Comment: ADDITIONAL INFORMATION This test was developed and its performance characteristics determined by [facility] in a manner consistent with CLIA requirements. This test has not been cleared or approved by the U.S. Food and Drug Administration. Test Performed by: [address] [address] Med Asst: Liu Davis Ph.D.; CLIA# [id number] Blood 08/03/2024 8:30 AM TELEPHONE MECHANIC 08/03/2024 4:21 PM TELEPHONE MECHANIC Chelsie Francisco QUARRY BOSS LAB BLOOD ORDERABLES F inal Result Performing Organization Address [facility] Co de Phone Number [facility] MATTHEW [address] [place] [address] [facility] ref Lab * Homocysteine (08/03/2024 8:30 AM TELEPHONE MECHANIC) Homocysteine 14.0 0.0 - 15.0 mcmol/L Comment:Testing performed by : [facility], [address] [place]., [address] Blood 08/03/2024 8:30 AM TELEPHONE MECHANIC 08/04/2024 10:21 AM TELEPHONE MECHANIC Chelsie Francisco QUARRY BOSS LAB BLOOD ORDERABLES F inal Result Performing Organization Address [facility] Co de Phone Number [facility] [address] [place] [address] * Vitamin B12 (08/03/2024 8:30 AM TELEPHONE MECHANIC) Vitamin B12 350 230 - 1,250 pg/mL Blood 08/03/2024 8:30 AM TELEPHONE MECHANIC 08/03/2024 4:21 PM TELEPHONE MECHANIC Chelsie Francisco QUARRY BOSS LAB BLOOD ORDERABLES F inal Result Performing Organization Address [facility] Co de Phone Number [facility] [address] [place] [place] [address] * HEAD COMPUTED TOMOGRAPHY (CT) WITHOUT CONTRAST (07/11/2024 9:14 AM TELEPHONE MECHANIC) Anatomical Region Laterality Modality N/A Computed Tomogra phy Marcell Rucker MD IMG CT PROCEDURES Final Result * eGFR (07/02/2024 10:20 AM TELEPHONE MECHANIC) eGFR 66 >=60 mL/min/1. 73 m2 Comment: [...] reviewed 2021. Blood 07/02/2024 10:2 0 AM TELEPHONE MECHANIC 07/02/2024 5:35 PM TELEPHONE MECHANIC us Kimberly Nicolas MD LAB BLOOD ORDERABLES Final Resu lt [facility]LE[facility] [address] Department [place] [address] * Differential, auto (07/02/2024 10:20 AM TELEPHONE MECHANIC) Neutrophil abs 5.1 1.5 - 6.5 K/cumm Imm gran abs 0.0 0.0 - 0.1 K/cumm [facility] Lymphocyte abs 1.4 0.8 - 3.3 K/cumm [facility] Monocyte abs 0.7 0.2 - 0.8 K/cumm [facility] Eosinophil abs 0.3 0.0 - 0.5 K/cumm [facility] Basophil abs 0.0 0.0 - 0.1 K/cumm [facility] Neutrophil pct 68.0 % [facility] Comment: Interpretive Data Percent cell count reference ranges are not reported, since discordance with absolute values may lead to misinterpretation of CBC data. Current Interpretive Data was last revised on 2017. Imm gran pct 0.5 % [facility] Comment: Interpretive Data Percent cell count reference ranges are not reported, since discordance with absolute values may lead to misinterpretation of CBC data. Current Interpretive Data was last revised on 2017. Lymphocyte pct 18.7 % [facility] Comment: Interpretive Data Percent cell count reference ranges are not reported, since discordance with absolute values may lead to misinterpretation of CBC data. Current Interpretive Data was last revised on 2017. Monocyte pct 9.0 % [facility] Comment: Interpretive Data Percent cell count reference ranges are not reported, since discordance with absolute values may lead to misinterpretation of CBC data. Current Interpretive Data was last revised on 2017. Eosinophil pct 3.4 % [facility] Comment: Interpretive Data Percent cell count reference ranges are not reported, since discordance with absolute values may lead to misinterpretation of CBC data. Current Interpretive Data was last revised on 2017. Basophil pct 0.4 % [facility] Comment: Interpretive Data Percent cell count reference ranges are not reported, since discordance with absolute values may lead to misinterpretation of CBC data. Current Interpretive Data was last revised on 2017. Blood 07/02/2024 10:2 0 AM TELEPHONE MECHANIC 07/02/2024 5:00 PM TELEPHONE MECHANIC us Kimberly Nicolas MD LAB BLOOD ORDERABLES Final Resu lt [facility] [address] [place] [address] * (ABNORMAL) Urinalysis reflex to microscopic and culture Urine, clean voided (07/02/2024 10:20 AM TELEPHONE MECHANIC) Color, ur Yellow Yellow Clarity, ur Clear [...] tendency for uric acid stone formation. Source: [facility] [employer] Current Interpretive Data was last revised on [...] [facility]ERNER Urine, clean voided 07/02/2024 10:20 AM TELEPHONE MECHANIC 07/02/2024 5:00 PM TELEPHONE MECHANIC us Kimberly Nicolas MD LAB MICROBIOLOGY - GENERAL MIA LEARY Final Result [facility] [address] [place] [address] * (ABNORMAL) CBC with auto differential (07/02/2024 10:20 AM TELEPHONE MECHANIC) WBC 7.4 3.8 - 9.9 K/cumm Hgb 13.3 11.9 - 15.5 g/dL [facility] Hct 44.2 35.6 - 45.5 % [facility] Plt 296 150 - 400 K/cumm [facility] MPV 9.4 9.1 - 12.3 fL [facility] RBC 4.79 3.90 - 5.20 M/cumm [facility] MCV 92.3 81.3 - 96.4 fL [facility] MCH 27.8 27.1 - 33.3 pg [facility] MCHC 30.1(L) 32.3 - 35.7 g/dL [facility] RDW CV 13.0 11.1 - 14.9 % [facility] RDW SD 43.8 35.7 - 48.1 fL [facility] NRBC abs 0.00 0.00 - 0.01 K/cumm [facility] Blood 07/02/2024 10:2 0 AM TELEPHONE MECHANIC 07/02/2024 5:00 PM TELEPHONE MECHANIC Kimberly Nicolas MD LAB BLOOD ORDERABLES Final Resu lt Performing Organization Address [facility] de Phone Number [facility] [address] [place] [address] * (ABNORMAL) Albumin Creatinine Ratio, Urine (07/02/2024 10:20 AM TELEPHONE MECHANIC) Albumin Ur 45.5 mg/L Comment: Interpretive Data No reference range established. Current interpretive data was last revised 2018. Creatinine Ur 73.7 mg/dL [facility] Comment: Interpretive Data No reference range established. Current interpretive data was last revised 2018. Albumin Creatinine Ratio, Ur 62(H) 1 - 29 mg/g [facility] Urine 07/02/2024 10:2 0 AM TELEPHONE MECHANIC 07/02/2024 5:00 PM TELEPHONE MECHANIC Servando Torre MD LAB URINE ORDERABLES Final Result Performing Organization Address [facility] Co de Phone Number [facility] [address] [employer] [place], [place] [id number] * Lamotrigine level (07/02/2024 10:20 AM TELEPHONE MECHANIC) Lamotrigine 9.6 3.0 - 15.0 mcg/mL [facility] ref Lab Comment: ADDITIONAL INFORMATION This test was developed and its performance characteristics determined by [facility] in a manner consistent with CLIA requirements. This test has not been cleared or approved by the U.S. Food and Drug Administration. Test Performed by: [facility] - [facility] [address] [place] [address] Med Asst: Liu Davis Ph.D.; CLIA# [id number] Blood 07/02/2024 10:2 0 AM TELEPHONE MECHANIC 07/02/2024 5:00 PM TELEPHONE MECHANIC Servando Torre MD LAB BLOOD ORDERABLES Final Result Performing Organization Address [facility] Co de Phone Number AILEEN MATTHEW [address] [place] [address] [facility] Lab * (ABNORMAL) Urinalysis, microscopic only (07/02/2024 10:20 AM TELEPHONE MECHANIC) WBC, ur 6-10(A) 0 - 5 /HPF RBC, ur 3-5(A) 0 - 2 /HPF [facility] Epithelial cells, squamous, ur 1-5 0 - 5 /HPF [facility] Mucous, ur Present(A) [facility] Culture Reflex Comment Reflex conditions for urine culture (WBC >10) not met. [facility] Urine, clean voided 07/02/2024 10:20 AM TELEPHONE MECHANIC 07/02/2024 5:00 PM TELEPHONE MECHANIC Kimberly Nicolas MD LAB URINE ORDERABLES Final Resu lt Performing Organization Address City/[facility] Co de Phone Number AILEEN MATTHEW [address] [place] [address] * (ABNORMAL) Hemoglobin A1c (07/02/2024 10:20 AM TELEPHONE MECHANIC) Hgb A1C 6.4(H) 4.0 - 5.6 % Estimated Average Glucose 137 mg/dL [facility] Comment: The ADA recommends reporting an estimated Average Glucose (eAG) with all Hemoglobin A1c results using the equation derived from a study of 507 normal and diabetic adults. ??Minority populations were underrepresented and children were not included. ?? (Diabetes Care 31:4539-0454, 2008). ??The eAG is not equivalent to a fasting glucose. Blood 07/02/2024 10:2 0 AM TELEPHONE MECHANIC 07/02/2024 5:00 PM TELEPHONE MECHANIC us Servando Torre MD LAB BLOOD ORDERABLES Final Result Performing Organization Address City/State/ZIP [facility] Phone Number AILEEN MATTHEW [address] Department [place] [address] * (ABNORMAL) Lipid panel (07/02/2024 10:20 AM TELEPHONE MECHANIC) Cholesterol 190 30 - 199 mg/dL Comment: [...] [facility] Blood 07/02/2024 10:2 0 AM TELEPHONE MECHANIC 07/02/2024 5:00 PM TELEPHONE MECHANIC us Servando Torre MD LAB BLOOD ORDERABLES Final Result [facility] [address] [place] [address] * (ABNORMAL) Comprehensive metabolic panel (07/02/2024 10:20 AM TELEPHONE MECHANIC) Sodium 141 135 - 145 mmol/L Potassium, [...] [facility] Blood 07/02/2024 10:2 0 AM TELEPHONE MECHANIC 07/02/2024 5:00 PM TELEPHONE MECHANIC us Kimberly Nicolas MD LAB BLOOD ORDERABLES Final Resu lt [facility] [address] [place] [address] * XR Spine Lumbar 2 or 3 Views (06/18/2024 3:04 PM TELEPHONE MECHANIC) Anatomical Region Laterality Modality Spine N/A Digital Radiogra phy 06/18/2024 5:05 PM TELEPHONE MECHANIC Narrative 06/18/2024 5:13 PM TELEPHONE MECHANIC EXAM DESCRIPTION: XR HIP LEFT 2 OR [...] no change from prior CT. There is [id number] multilevel degenerative endplate change with no acute [...] D: ??06/18/2024 5:13 PM T: Report ID: [id number] Reading Location: ??[id number] Procedure Note Teofilo Rand MD - 06/18/2024 [...] no change from prior CT. There is pxjw-df-mjtrsxve multilevel degenerative endplate change with no acute [...] Teofilo Rand M.D. MJ T: Report ID: [id number] Reading Location: [place] [address] [place] Pricilla Olguin NP IMG XR PROCEDURES Final Result * XR Hip Left 2+ Vw (06/18/2024 3:04 PM TELEPHONE MECHANIC) Anatomical Region Laterality Modality Lower Extremities, Hip, Pelvis Left D igital Radiography 06/18/2024 5:05 PM TELEPHONE MECHANIC Narrative 06/18/2024 5:13 PM TELEPHONE MECHANIC EXAM DESCRIPTION: XR HIP LEFT 2 OR [...] no change from prior CT. There is utay-sn-helmilyz multilevel degenerative endplate change with no acute [...] D: ??06/18/2024 5:13 PM T: Report ID: [id number] Reading Location: ??[id number] Procedure Note Teofilo Rand MD - 06/18/2024 [...] no change from prior CT. There is mcdo-up-shukzxyx multilevel degenerative endplate change with no acute [...] Teofilo Rand M.D. MJ T: Report ID: [id number] Reading Location: [place] [address] Pricilla Olguin NP IMG XR PROCEDURES Final [...] Bone mineral density was performed on a [employer] Discovery Densitometer. ?? Based on machine cross-calibration [...] by the International Society of Clinical Densitometry. [id number] Servando Torre MD IMG DXA PROCEDURES Final Re sult from Last 3 Months or Most Recently Relevant to Health Maintenance Insurance MEDICARE [facility] MEDICARE SUPPLEMENT MEDICARE [facility] MEDICARE SUPPLEMENT MEDICARE [facility]IC[facility] Advance Directives For more information, please contact: [phone] * Full Code (Latest Code Status on [...] 9:30 AM 11/29/2022 3:28 PM Care Teams Overcoil Stepper Relationship Specialty Start Date End Date Servando Torre MD [facility] [address] [address] PCP - General Family Medicine 06/19/22 Mariela Denton MD [address] [place] [address] Referring Physician Gastroenterology 06/19/22 Lexis Barroso OD [address] [place] [address] Mud Jack Operator 09/19/22
--- OUTSIDE RECORDS SUMMARY | 2024-08-25 07:05 | XMS_ITS | Clinical Summary ---
Author Organization [facility] Address [address] [facility] [place] [address] [place] [address] Care Team Providers Care Machine Farmworker Name Role Phone Servando Trore MD Primary Care Provider [phone] Allergies Active Allergy Reactions Criticality Noted Date [...] tests 05/20/2023 Chronic ulcerative colitis, unspecified complication ([facility]/HCC) 06/18/2022 Ulcerative pancolitis withou t complication ([facility]) 09/04/2021 Overview (09/04/2021): Added automatically from request for surgery [id number] Colitis 03/20/2020 Encounters Date Type Department Care Team Description 08/03/2024 2:16 PM FIELD CONTROL INSPECTOR - 08/03/2024 3:00 PM FIELD CONTROL INSPECTOR Hospital Encounter [facility] [address] [place] [address] Josué Cook MD Discharge Disposition: Home or Self Care (Routine Discharge) 08/03/2024 Travel 05/28/2024 1:43 PM CDT - 05/28/2024 2:55 PM CDT Hospital Encounter [facility] [address] [place] [address] Josué Cook MD Discharge Disposition: Home or [...] Comments Blood Pressure 129/56 08/03/2024 2:46 PM FIELD CONTROL INSPECTOR Pulse 65 05/28/2024 2:06 PM CDT Temperature 36.7 ??C (98 ??F) 08/03/2024 1:44 PM FIELD CONTROL INSPECTOR Respiratory Rate 18 05/28/2024 2:06 PM CDT Oxygen Saturation 97% 08/03/2024 1:42 PM FIELD CONTROL INSPECTOR Inhaled Oxygen Concentration - - Weight 69.9 kg (154 lb) 04/19/2022 2:44 PM CDT Height 157.5 cm (5' 2 ) 04/19/2022 2:44 PM CDT Body Mass Index 28.17 04/19/2022 2:44 PM CDT Plan of Treatment Upcoming Encounters Date Type Department Care Team (Late st Contact Info) Description 09/28/2024 2:30 PM FIELD CONTROL INSPECTOR Appointment [facility] [address] [place] [address] Josué Cook MD [address] [address] Health Maintenance Due Date Last Done Comments PHQ-2 (Physician [place]) 1957 DTaP, Tdap and Td Vaccines ( 1 - Tdap) 1964 Annual Medicare Wellness Visit 2008 RSV Immunization or 60+ Years (1 - 1-dose 75+ series) 2018 COVID-19 Vaccine (2 - Pfizer risk series) 06/20/2022 05/30/2022 Influenza Adult (#1) 2024 05/06/2022 PHQ-2 (Physician [place]) 07/28/2024 Zoster Vaccines Completed 08/01/2020, 05/30/2020 Dexa [...] Problems Recent Progress Patient-Stated? 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 Procedure Name Priority Date/Time Associated Diagnosis Comments C-REACTIVE PROTEIN Routine 08/03/2024 1: 30 PM FIELD CONTROL INSPECTOR Chronic ulcerative colitis, unspecified complication (CMS/HCC HHS/HCC) Abnormal liver function tests CBC W/DIFF AUTOMATED Routine 08/03/2024 1:30 PM FIELD CONTROL INSPECTOR Chronic ulcerative colitis, unspecified complication (CMS/HCC HHS/HCC) Abnormal liver function tests COMPREHENSIVE METABOLIC PANEL Routine 08/03/2024 1:30 PM FIELD CONTROL INSPECTOR Chronic ulcerative colitis, unspecified complication (CMS/HCC HHS/HCC) [...] (ABNORMAL) COMPREHENSIVE METABOLIC PANEL (08/03/2024 1:30 PM FIELD CONTROL INSPECTOR) Only the most recent of2 resultswithin the time period is included. Pathologist [facility] GLUCOSE 160(H) 70 - 99 MG/DL 08/03/2024 2:57 PM [facility] BUN 18 7 - 18 MG/DL 08/03/2024 2:57 PM [facility] CREATININE S/P/B 1.21(H) 0.55 - 1.02 MG/DL 08/03/2024 2:57 PM [facility] SODIUM S/P/B 142 136 - 145 MMOL/L 08/03/2024 2:57 PM [facility] POTASSIUM S/P/B 4.0 3.5 - 5.1 MMOL/L 08/03/2024 2:57 PM [facility] CHLORIDE S/P/B 105 100 - 108 MMOL/L 08/03/2024 2:57 PM [facility] CO2 25.9 21 - 32 MMOL/L 08/03/2024 2:57 PM [facility] CALCIUM S/P/B 9.7 8.5 - 10.1 MG/DL 08/03/2024 2:57 PM [facility] BILIRUBIN TOTAL S/P/B 0.4 0.2 - 1.2 MG/DL 08/03/2024 2:57 PM [facility] TOTAL PROTEIN S/P/B 6.8 6.4 - 8.2 G/DL 08/03/2024 2:57 PM [facility] ALBUMIN S/P/B 3.7 3.4 - 5.0 G/DL 08/03/2024 2:57 PM FIELD CONTROL INSPECTOR [facility] AST 16 15 - 37 U/L 08/03/2024 2:57 PM [facility] ALT 17 14 - 55 U/L 08/03/2024 2:57 PM [facility] ALKALINE PHOSPHATASE S/P/B 120 50 - 136 U/L 08/03/2024 2:57 PM [facility] ANION GAP 11.1 5 - 15 MMOL/L 08/03/2024 2:57 PM [facility] BUN CREATININE RATIO 14.9 6 - 26 08/03/2024 2:57 PM [facility] A/G RATIO 1.2 1.0 - 2.0 RATIO 08/03/2024 2:57 PM [facility] GFR ESTIMATE 45(L) >90 ML/MIN/1.7 3 M2 08/03/2024 2:57 PM [facility] Comment: NOTE: eGFR is not calculated for patients <18 years of age. This is an estimated GFR calculation using the new CKD EPI creatinine equation without race and so does not require a correction factor for race. This estimated GFR should not be used for calculating drug doses. 08/03/2024 1:30 PM FIELD CONTROL INSPECTOR Josué Cook MD LABORATORY Final Result [facility] [address] [place] [address], * C-REACTIVE PROTEIN (08/03/2024 1:30 PM FIELD CONTROL INSPECTOR) Only the most recent of2 resultswithin the time period is included. C-REACTIVE PROTEIN <0.29 <0.29 mg/dL 08/03/2024 10:01 PM FIELD CONTROL INSPECTOR [facility] 08/03/2024 1:30 PM FIELD CONTROL INSPECTOR Josué Cook MD LABORATORY Final Result [facility] [address] [place] [address], * (ABNORMAL) CBC W/DIFF AUTOMATED (08/03/2024 1:30 PM FIELD CONTROL INSPECTOR) Only the most recent of2 resultswithin the time period is included. WBC 8.96 4.4 - 11.0 x10'3/uL 08/03/2024 2:20 PM [facility] RBC 4.72 4.50 - 5.10 x10'6/uL 08/03/2024 2:20 PM [facility] HGB 13.7 12.3 - 15.3 G/DL 08/03/2024 2:20 PM [facility] HCT 42.2 35.9 - 44.6 % 08/03/2024 2:20 PM [facility] MCV 89.4 80.0 - 96.0 FL 08/03/2024 2:20 PM [facility] MCH 29.0 25.3 - 30.9 PG 08/03/2024 2:20 PM [facility] MCHC 32.5 31.0 - 34.1 G/DL 08/03/2024 2:20 PM [facility] RDW 13.8 12.4 - 15.1 % 08/03/2024 2:20 PM [facility] PLT 278 151 - 353 x10'3/uL 08/03/2024 2:20 PM [facility] MPV 9.0(L) 9.6 - 12.0 FL 08/03/2024 2:20 PM FIELD CONTROL INSPECTOR [facility] RBC MORPHOLOGY NORMAL 08/03/2024 2:20 PM [facility] PLT MORPH. NORMAL 08/03/2024 2:20 PM [facility] WBC MORPHOLOGY NORMAL 08/03/2024 2:20 PM [facility] LYMPHOCYTES % 22.2 15.8 - 45.0 % 08/03/2024 2:20 PM [facility] NEUTROPHILS % 67.6 42.1 - 71.9 % 08/03/2024 2:20 PM [facility] MONOCYTES % 9.2 5.7 - 12.5 % 08/03/2024 2:20 PM [facility] EOSINOPHILS 0.0 0.0 - 5.6 % 08/03/2024 2:20 PM [facility] BASOPHILS 0.6 0.0 - 1.3 % 08/03/2024 2:20 PM [facility] ABS. NEUTROPHILS 6.06(H) 1.40 - 6.00 x10'3/uL 08/03/2024 2:20 PM [facility] IMMATURE GRANS % 0.4 0.0 - 0.5 % 08/03/2024 2:20 PM [facility] ABS. LYMPHOCYTES 1.99 0.80 - 4.70 x10'3/uL 08/03/2024 2:20 PM [facility] 08/03/2024 1:30 PM FIELD CONTROL INSPECTOR us Josué Cook MD LABORATORY Final Result [facility] [address] [place] [address], [place] [phone] * QUANTIFERON TBGOLD TUBERCULOSIS TEST (05/28/2024 2:00 PM CDT) Pathologist [facility] TB1 AG MINUS NIL 0.01 IU/ML 05/31/20 24 1:56 PM FIELD CONTROL INSPECTOR [facility] TB2 AG MINUS NIL 0.04 IU/ML 05/31/20 24 1:56 PM FIELD CONTROL INSPECTOR [facility] TB QUANTIFERON NEGATIVE NEGATIVE 05/31/2024 1:56 PM FIELD CONTROL INSPECTOR [facility] TB INTERPRETATION M. tuberculosis infection unlikely but cannot be excluded especially when any illness is consistent with TB disease and/or likelihood of progression to disease is increased. ?? In patients at high risk to M. tuberculosis infection, a second test should be considered. 05/31/2024 1:56 PM FIELD CONTROL INSPECTOR [facility] 05/28/2024 2:00 PM CDT Josué Cook MD LABORATORY Final Result [facility] [address] [place] [address], [place] [phone] * HEPATITIS B SURFACE AG, EIA (05/28/2024 2:00 PM CDT) [facility] HEPATITIS B SURFACE AG NON-REACTI VE NON-REACTI VE 05/28/2024 8:34 PM CDT [facility] 05/28/2024 2:00 PM CDT us Josué Cook MD LABORATORY Final Result [facility] [address] [place] [address], [place] [phone] * HEPATITIS B SURFACE ANTIBODY (05/28/2024 2:00 PM CDT) HEP B SURFACE AB NON-REACTI VE 05/28/2024 11:01 PM CDT [facility] 05/28/2024 2:00 PM CDT Josué Cook MD LABORATORY Final Result [facility] [address] [place] [address], [place] [phone] * HEPATITIS B CORE ANTIBODY (05/28/2024 2:00 PM CDT) HEP B CORE TOTAL AB NON-REACTI VE NON-REACTI VE 05/28/2024 9:04 PM CDT [facility] 05/28/2024 2:00 PM CDT Josué Cook MD LABORATORY Final Result Performing Organization Address City/[facility]/ZIP Co de Phone Number [facility] [address] [place] [address], [place] [phone] from Last 3 Months Insurance MEDICARE [facility] Advance Directives * Full Code (Latest Code Status on File) Date Activated Date Inactivated Comments 03/20/2020 11:16 AM 03/23/2020 7:48 PM Care Teams Machine Farmworker Relationship Specialty Start Date End Date Servando Torre MD [address] [facility] [address] [place] [address] PCP - General FAMILY PRACTICE 07/17/22
--- OUTSIDE RECORDS SUMMARY | 2024-08-25 07:05 | XMS_ITS | Encounter Summary ---
Author Organization [facility] Address [address] [facility] [place] [address] [place] [address] Care Team Providers Care Conference Planning Manager Name Role Phone Servando Torre MD Primary Care Provider [phone] Encounter Details Date Type Department Care Team (Late st Contact Info) Description 08/19/[address] [facility] Services [address] [place] [address] Josué Cook MD [address] [place] [address] Social History Tobacco Use Types Packs/Day Years [...] st Contact Info) Description 09/28/2024 2:30 PM COMMERCIAL PHOTOGRAPHER Appointment [address] [id number] Josué Cook MD [address] [address] documented as of this encounter Goals Goal Patient Goal Type Associated Problems Recent Progress Patient-Stated? Author HOME TO [facility] No Vannessa Blackwell RN documented as of this encounter Visit Diagnoses Diagnosis Abnormal liver function tests- Primary Other abnormal blood chemistry Chronic ulcerative colitis, unspecified complication (CMS/HCC HHS/HCC) documented in this encounter Additional Health Concerns Assessment Noted Time PHQ-9 Depression Total Score: 0 07/06/20 21 4:06 PM COMMERCIAL PHOTOGRAPHER documented as of this encounter Care Teams Conference Planning Manager Relationship Specialty Start Date End Date Servando Torre MD [address] [place] [address] [address] [place] [address] PCP - General FAMILY PRACTICE 07/17/22 documented as of this encounter
--- OUTSIDE RECORDS SUMMARY | 2024-08-25 07:05 | XMS_ITS | Encounter Summary ---
Author Organization [facility] Address [address] [facility] [place] [address] [place] [address] Care Team Providers Care Toe Sewer Name Role Phone Jared Abrams MD Primary Care Provider [phone] Servando Torre MD Primary Care Provider [phone] Encounter Details Date Type Department Care Team (Late st Contact Info) Description 09/26/2003 Abstract [facility] Conversion , Generic Conversion, Social [...] st Contact Info) Description 09/28/2024 2:30 PM BRINE MIXER OPERATOR Appointment [facility] [address] [place] [address] Josué Cook MD [address] [facility] [address] [place] [address] documented as of this encounter Visit Diagnoses Not on filedocumented in this encounter Care Teams Toe Sewer Relationship Specialty Start Date End Date Jared Abrams MD PCP - General 08/28/11 07/16/22 Servando Torre MD [address] [facility] [address] [place] [address] PCP - General FAMILY PRACTICE 07/17/22 documented as of this encounter
--- OUTSIDE RECORDS SUMMARY | 2024-08-25 07:05 | XMS_ITS | Encounter Summary ---
Author Organization [facility] Address [address] [place] [address] [place] [address] Care Team Providers Care Medical Pathologist Name Role Phone Jared Abrams MD Primary Care Provider [phone] Servando Torre MD Primary Care Provider [phone] Encounter Details Date Type Department Care Team (Late st Contact Info) Description 06/18/2022 Therapy Plan [facility] [address] [place] [address] Mariela Denton MD [facility] [address] [facility] [address] [place] [address] Social History Tobacco Use Types Packs/Day Years [...] Date Type Department Care Team (Late st [facility]) Description 09/28/2024 2:30 PM LAUNDRY AGENT Appointment [facility] [address] [place] [address] Josué Cook MD [facility] [address] documented as of this encounter Goals Goal Patient Goal Type Associated Problems Recent Progress Patient-Stated? Author [facility] No Vannessa Blackwell RN documented as of this encounter Visit Diagnoses Diagnosis Chronic ulcerative colitis, unspecified complication (CMS/HCC [facility])- Primary documented in this encounter Additional Health Concerns Assessment Noted Time PHQ-9 Depression Total Score: 0 07/06/20 21 4:06 PM LAUNDRY AGENT documented as of this encounter Care Teams Medical Pathologist Relationship Specialty Start Date End Date Jared Abrams MD PCP - General 08/28/11 07/16/22 Servando Torre MD [address] [facility] [address] [place] [address] PCP - General FAMILY PRACTICE 07/17/22 documented as of this encounter
--- OUTSIDE RECORDS SUMMARY | 2024-08-25 07:05 | XMS_ITS | Encounter Summary ---
Author Organization [facility] Address [address] [place] [address] Phone Care Team Providers Care Short Filler Bunch Machine Operator Name Role Phone Servando Torre MD Primary Care Provider [phone] Mariela Denton MD Unavailable [phone] Lexis Barroso OD Unavailable [phone] Reason for Visit * Reason Onset Date Comments Medication Problem 08/24/2024 Med Management 08/24/2024 Encounter Details Date Type Department Care Team (Late st Contact Info) Description 08/24/2024 Telephone [facility] [address] [facility] 6[address] [place] [address] [place] [phone] Adria Burleson MD [address] [facility] [address] [place] [address] Medication Problem; Med Management Social History Tobacco [...] on file Legal Sex Female 9:30 AM HOUSESMITH Gender Identity Female 04/05/2022 6:17 PM CDT [...] Briviact 50mg BID Any recommendations? Jenny Bird ESMITH documented in this encounter Plan of Treatment Not on file documented as of this encounter Visit Diagnoses Not on filedocumented in this encounter Care Teams Short Filler Bunch Machine Operator Relationship Specialty Start Date End Date Servando Torre MD [address] [address] PCP - General Family Medicine 06/19/22 Mariela Denton MD [address] [place] [address] Referring Physician Gastroenterology 06/19/22 Lexis Barroso OD [address] [place] [address] Correctional Cook 09/19/22 documented as of this encounter
--- OUTSIDE RECORDS SUMMARY | 2024-08-25 07:05 | XMS_ITS | Encounter Summary ---
Author Organization [facility] Address [address] [facility] [place] [address] [place] [address] Care Team Providers Care Food Service Tray Attendant Name Role Phone Servando Torre MD Primary Care Provider Encounter Details Date Type Department Care Team (Late st Contact Info) Description 05/01/[address] [facility] [place] [facility] [address] [place] [address] Josué Cook MD [address] [place] [address] Social History Tobacco Use Types Packs/Day Years [...] st Contact Info) Description 09/28/2024 2:30 PM INSIDE SALES ACCOUNT MANAGER Appointment [address] [phone] Josué Cook MD [address] [address] documented as of this encounter Goals Goal Patient Goal Type Associated Problems Recent Progress Patient-Stated? Author HOME TO [facility] No Vannessa Blackwell RN documented as of this encounter Visit Diagnoses Diagnosis Chronic ulcerative colitis, unspecified complication ([facility]/HCC [facility]/HCC)- Primary Abnormal liver function tests Other abnormal blood chemistry documented in this encounter Additional Health Concerns Assessment Noted Time PHQ-9 Depression Total Score: 0 07/06/20 21 4:06 PM INSIDE SALES ACCOUNT MANAGER documented as of this encounter Care Teams Food Service Tray Attendant Relationship Specialty Start Date End Date Servando Torre MD [address] [place] [address] [address] [place] [address] PCP - General FAMILY PRACTICE 07/17/22 documented as of this encounter
--- OUTSIDE RECORDS SUMMARY | 2024-08-25 07:06 | XMS_ITS | Referral Summary ---
Author Organization [facility] Address [address] [place] [address] Care Team Providers Care Straddle Truck Operator Name Role Phone Servando Torre MD Primary Care Provider Mariela Denton MD Unavailable [phone] Lexis Barroso OD Unavailable [phone] Encounters Date Type Department Care Team Description 08/24/2024 Telephone [facility] [address] [facility] 6th [place] [address] [place] [address] Adria Burleson MD Medication Problem; Med Management 08/17/2024 8:26 AM PHOTOCOPIER TECHNICIAN - 08/23/2024 5:10 PM PHOTOCOPIER TECHNICIAN Hospital Encounter [address] [phone] Adria Burleson MD Discharge Disposition: Discharge to home or self care 08/17/2024 8:00 AM PHOTOCOPIER TECHNICIAN Ancillary Procedure [address] [phone] Rene De La O MT Seizure (HCC) 08/16/2024 Orders Only [facility] Medical Group Primary Care at [address] [phone] ProviderSilvestre MD 08/13/2024 Telephone [facility] [address] [place] [address] Karen Lee 08/12/2024 Telephone [facility] Epilepsy [address] [facility] 6th [place] [address] [place] [phone] Ute Miller MD 08/12/2024 Orders Only [facility] Primary Care at [address] [phone] Silvestre Ahn MD 08/03/2024 4:00 PM PHOTOCOPIER TECHNICIAN - 08/03/2024 11:59 PM PHOTOCOPIER TECHNICIAN Hospital Encounter [address] [address] Frequent falls; Syncope, unspecified syncope type; Memory impairment; Essential (primary) hypertension Discharge Disposition: Discharge to home or self care 08/03/2024 8:45 AM PHOTOCOPIER TECHNICIAN Lab [facility] Outpatient Lab at [address] [phone] 08/03/2024 8:00 AM PHOTOCOPIER TECHNICIAN Ancillary Procedure [facility] Vascular and Vein Surgery at [address] [place] [address] Carotid stenosis, asymptomatic, bilateral 07/28/2024 Orders Only [facility] [address] [place] [address] Chelsie Francisco NP 07/24/2024 Orders Only [facility] [address] [place] [address] Chelsie Francisco NP Frequent falls (Primary Dx); Syncope, unspecified syncope type; Memory impairment; Essential (primary) hypertension; Sleep walking 07/22/2024 7:00 PM PHOTOCOPIER TECHNICIAN Office Visit [facility] Medical [facility] Convenient Care at [address] [phone] Lexis Chaves PA Encounter for staple removal (Primary Dx) 07/14/2024 Telephone [facility] Primary Care at [address] [phone] Results 07/12/2024 Orders Only [address] 6th Floor [address] [place] [address] Chelsie Francisco NP 07/12/2024 Orders Only [facility] Primary Care at [address] [phone] Marcell Rucker MD 07/09/2024 Telephone [facility] Epilepsy [facility] 6th [place] [address] [place] [phone] Adria Burleson MD Medication Problem; Request For Order(s) 07/08/2024 3:15 PM PHOTOCOPIER TECHNICIAN Office Visit [address] [place] [address] Chelsie Francisco NP Somnolence, daytime (Primary Dx); Memory impairment; Frequent falls; Anxiety 07/05/2024 3:00 PM PHOTOCOPIER TECHNICIAN Office Visit [facility] Medical [facility] Primary Care at [address] [phone] Servando Torre MD Encounter for Medicare annual wellness exam (Primary Dx); Mixed diabetic hyperlipidemia associated with type 2 diabetes mellitus (HCC); Hypertension associated with diabetes (HCC); Gastroesophageal reflux disease without esophagitis; At risk for falls; Carotid stenosis, asymptomatic, bilateral 07/02/2024 10:20 AM PHOTOCOPIER TECHNICIAN - 07/02/2024 11:59 PM PHOTOCOPIER TECHNICIAN Hospital Encounter [address] [address] Hypertension associated with diabetes (HCC); Seizure (HCC); Weakness generalized Discharge Disposition: Discharge to home or self care 07/02/2024 10:15 AM PHOTOCOPIER TECHNICIAN Lab [facility] Medical Group Outpatient Lab at [address] [phone] Encounter for Medicare annual wellness exam (Primary Dx) 06/29/2024 Orders Only [address] Floor [address] [place] [phone] Kimberly Nicolas MD Weakness generalized (Primary Dx) 06/18/2024 3:00 PM PHOTOCOPIER TECHNICIAN Ancillary Procedure [facility] Medical [facility] Imaging at [address] [phone] Accidental fall, subsequent encounter 06/18/2024 2:55 PM PHOTOCOPIER TECHNICIAN Ancillary Procedure [facility] Imaging at [address] [phone] Accidental fall, subsequent encounter 06/18/2024 2:30 PM PHOTOCOPIER TECHNICIAN Office Visit [facility] at [address] [phone] Pricilla Olguin NP Accidental fall, subsequent encounter (Primary Dx) 05/28/2024 Telephone [facility] Primary Care at [address] [phone] Servando Torre MD Medical Question/Miscellaneou [...] every 8 (eight) weeks Infused at: [facility] ([facility] order in [facility] under 'Procedures' tab). 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 fuentes gs [...] 05/29 Assessment & Plan (07/05/2024 3:20 PM PHOTOCOPIER TECHNICIAN): A(n) yearly Medicare Annual Wellness Visit has [...] months Assessment & Plan (06/26/2023 2:02 PM PHOTOCOPIER TECHNICIAN): A(n) yearly Medicare Annual Wellness Visit has [...] months Assessment & Plan (06/23/2022 3:06 PM PHOTOCOPIER TECHNICIAN): A(n) initial Medicare Annual Wellness Visit has [...] (06/19/2022): Added automatically from request for surgery [id number] Ear ringing 03/03/2013 Asymmetrical sensorineural hearing loss 03/03/20 13 Stress fracture 07/07/2012 Arthralgia of hip 02/06/2011 Resolved Problems Problem Noted Date Diagnosed Date Resolved Date Hospital discharge follow-up 06/11/2023 08/07/2023 Assessment & Plan (06/11/2023 1:42 PM PHOTOCOPIER TECHNICIAN): I have reviewed the hospital record, medications, [...] on file Legal Sex Female 9:30 AM PHOTOCOPIER TECHNICIAN Gender Identity Female 04/05/2022 6:17 PM CDT Sexual Orientation Straight 04/05/2022 6: 17 PM CDT Last Filed Vital Signs Vital Sign Reading Time Taken Comments Blood Pressure 147/64 08/23/2024 7:40 AM PHOTOCOPIER TECHNICIAN Pulse 64 08/23/2024 7:40 AM PHOTOCOPIER TECHNICIAN Temperature 37 ??C (98.6 ??F) 08/23/2024 7:40 AM PHOTOCOPIER TECHNICIAN Respiratory Rate 16 08/23/2024 7:40 AM PHOTOCOPIER TECHNICIAN Oxygen Saturation 98% 08/23/2024 7:40 AM PHOTOCOPIER TECHNICIAN Inhaled Oxygen Concentration - - Weight 65.8 kg (145 lb 1 oz) 08/17/2024 6:45 PM PHOTOCOPIER TECHNICIAN Height 157.5 cm (5' 2.01 ) 08/17/2024 6:45 PM CS T Body Mass Index 26.53 08/17/2024 6:45 PM PHOTOCOPIER TECHNICIAN Plan of Treatment Not on file Procedures Procedure Name Priority Date/Time Associated Diagnosis Comments POCT GLUCOSE DEVICE Routine 08/22/2024 6 :24 AM PHOTOCOPIER TECHNICIAN POCT GLUCOSE DEVICE Routine 08/21/2024 6 :06 AM PHOTOCOPIER TECHNICIAN POCT GLUCOSE DEVICE Routine 08/18/2024 5 :09 PM PHOTOCOPIER TECHNICIAN POCT GLUCOSE DEVICE Routine 08/18/2024 1 1:18 AM PHOTOCOPIER TECHNICIAN POCT GLUCOSE DEVICE Routine 08/18/2024 8 :02 AM PHOTOCOPIER TECHNICIAN BRAIN, BRAIN STEM MAGNETIC RESONANCE (MR) IMAGING Schedule Routine, Read Routine (OP Routine) 08/12/2024 1:35 PM PHOTOCOPIER TECHNICIAN XR CHEST 1 VIEW Schedule Routine, Read Routine (OP Routine) 08/11/2024 9:53 AM PHOTOCOPIER TECHNICIAN US CAROTIDS DUPLEX BILATERAL Schedule Routine, Read Routine (OP Routine) 08/03/2024 8:46 AM PHOTOCOPIER TECHNICIAN Carotid stenosis, asymptomatic, bilateral METHYLMALONIC ACID, SERUM Routine 08/03/2024 8:30 AM PHOTOCOPIER TECHNICIAN Frequent falls Syncope, unspecified syncope type Memory impairment HOMOCYSTEINE Routine 08/03/2024 8:30 AM PHOTOCOPIER TECHNICIAN Frequent falls Syncope, unspecified syncope type Memory impairment Essential (primary) hypertension VITAMIN B12 Routine 08/03/2024 8:30 AM PHOTOCOPIER TECHNICIAN Frequent falls Syncope, unspecified syncope type Memory impairment HEAD COMPUTED TOMOGRAPHY (CT) WITHOUT CONTRAST Schedule Routine, Read Routine (OP Routine) 07/11/2024 9:14 AM PHOTOCOPIER TECHNICIAN URINALYSIS, MICROSCOPIC ONLY Routine 07/02/2024 10:20 AM PHOTOCOPIER TECHNICIAN Weakness generalized EGFR Routine 07/02/2024 10:20 AM PHOTOCOPIER TECHNICIAN Weakness generalized DIFFERENTIAL AUTO Routine 07/02/2024 10: 20 AM PHOTOCOPIER TECHNICIAN Weakness generalized CBC WITH AUTO DIFFERENTIAL Routine 07/02/2024 10:20 AM PHOTOCOPIER TECHNICIAN Weakness generalized COMPREHENSIVE METABOLIC PANEL Routine 07/02/2024 10:20 AM PHOTOCOPIER TECHNICIAN Weakness generalized ALBUMIN CREATININE RATIO, URINE Routine 07/02/2024 10:20 AM PHOTOCOPIER TECHNICIAN Hypertension associated with diabetes (HCC) HEMOGLOBIN A1C Routine 07/02/2024 10:20 AM PHOTOCOPIER TECHNICIAN Hypertension associated with diabetes (HCC) LAMOTRIGINE LEVEL Routine 07/02/2024 10: 20 AM PHOTOCOPIER TECHNICIAN Seizure (HCC) LIPID PANEL Routine 07/02/2024 10:20 AM PHOTOCOPIER TECHNICIAN Hypertension associated with diabetes (HCC) URINALYSIS AND REFLEX TO MICROSCOPIC AND CULTURE Routine 07/02/2024 10:20 AM PHOTOCOPIER TECHNICIAN Weakness generalized XR SPINE LUMBAR 2 OR 3 VIEWS Schedule SHIRA, Read SHIRA (Appt Today, Awaiting Results) 06/18/2024 3:04 PM PHOTOCOPIER TECHNICIAN Accidental fall, subsequent encounter XR HIP LEFT 2 OR 3 VIEWS Schedule SHIRA, Read SHIRA (Appt Today, Awaiting Results) 06/18/2024 3:04 PM PHOTOCOPIER TECHNICIAN Accidental fall, subsequent encounter DIABETIC EYE EXAM Routine 06/25/2023 DEXA AXIAL SKELETON BONE DENSITY 1 OR MORE SITES Schedule Routine, Read Routine (OP Routine) 12/12/2022 2:33 PM CDT Screening for osteoporosis Asymptomatic menopausal state from Last 3 Months or Most Recently Relevant to Health Maintenance Results * POCT glucose (08/22/2024 6:24 AM PHOTOCOPIER TECHNICIAN) Glucose, POC 141 70 - 199 mg/dL Blood 08/22/2024 6:24 AM PHOTOCOPIER TECHNICIAN 08/22/2024 6:24 AM PHOTOCOPIER TECHNICIAN us Adria Diop MD LAB POCT ORD ERABLES - DEVICE Final Result Performing Organization Address [facility] de Phone Number [facility] Department [place] [employer] [place] [address] * POCT glucose (08/21/2024 6:06 AM PHOTOCOPIER TECHNICIAN) Glucose, POC 126 70 - 199 mg/dL Blood 08/21/2024 6:06 AM PHOTOCOPIER TECHNICIAN 08/21/2024 6:06 AM PHOTOCOPIER TECHNICIAN us Adria Diop MD LAB POCT ORD ERABLES - DEVICE Final Result Performing Organization Address [facility] de Phone Number [facility] [place] [employer] [place] [address] * POCT glucose (08/18/2024 5:09 PM PHOTOCOPIER TECHNICIAN) Glucose, POC 99 70 - 199 mg/dL Blood 08/18/2024 5:09 PM PHOTOCOPIER TECHNICIAN 08/18/2024 5:09 PM PHOTOCOPIER TECHNICIAN us Adria Diop MD LAB POCT ORD ERABLES - DEVICE Final Result Performing Organization Address [facility]/ZIP Co de Phone Number [facility] [place] [address] * POCT glucose (08/18/2024 11:18 AM PHOTOCOPIER TECHNICIAN) Glucose, POC 178 70 - 199 mg/dL Blood 08/18/2024 11:1 8 AM PHOTOCOPIER TECHNICIAN 08/18/2024 11:18 AM PHOTOCOPIER TECHNICIAN Adria Diop MD LAB POCT ORD ERABLES - DEVICE Final Result Performing Organization Address [facility] de Phone Number [facility] [place] [address] * POCT glucose (08/18/2024 8:02 AM PHOTOCOPIER TECHNICIAN) Glucose, POC 130 70 - 199 mg/dL Blood 08/18/2024 8:02 AM PHOTOCOPIER TECHNICIAN 08/18/2024 8:02 AM PHOTOCOPIER TECHNICIAN Adria Diop MD LAB POCT ORD ERABLES - DEVICE Final Result Performing Organization Address [facility] de Phone Number [facility] Department [place] [address] * BRAIN, BRAIN STEM MAGNETIC RESONANCE (MR) IMAGING (08/12/2024 1:35 PM PHOTOCOPIER TECHNICIAN) Anatomical Region Laterality Modality N/A Magnetic Resonan ce Historical Provider IMG MRI PROCEDURES Final Result * XR Chest 1 View (08/11/2024 9:53 AM PHOTOCOPIER TECHNICIAN) Anatomical Region Laterality Modality Body, Chest N/A Radiographic Keyanna ging Historical Provider MD GRAHAM XR PROCEDURES Final R esult * Vl US Carotids (08/03/2024 8:46 AM PHOTOCOPIER TECHNICIAN) Anatomical Region Laterality Modality Vascular Bilateral Ultrasound 08/03/2024 8:26 AM PHOTOCOPIER TECHNICIAN Narrative 08/03/2024 9:47 AM PHOTOCOPIER TECHNICIAN Vascular & Vein Surgery [address] [place] [address]. [place] [address] Carotid Duplex Ultrasound Report Patient Name: RADHA ALLEN K : 1945 (79y 4m) Study Date: 08/03/2024 8:26:13 AM Gender: F Senior Java Developer: Location: [facility] Ref Provider: SERVANDO TORRE ?Quality: [...] Gino Correa MD B 08/03/2024 9:46:05 AM PHOTOCOPIER TECHNICIAN Procedure Note Gino Correa MD - 08/03/2024 Vascular & Vein Surgery [address] [place] [address] Carotid Duplex Ultrasound Report Patient Name: RADHA ALLEN K : 1945 (79y 4m) Study Date: 08/03/2024 8:26:13 AM Gender: F Senior Java Developer: Location: [facility] Provider: SERVANDO TORRE Quality: Adequate Order Provider: [...] Gino Correa MD B 08/03/2024 9:46:05 AM PHOTOCOPIER TECHNICIAN us Servando Torre MD [facility] US PROCEDURES Final Res ult * Methylmalonic acid, serum (08/03/2024 8:30 AM PHOTOCOPIER TECHNICIAN) MMA 0.25 <=0.40 nmol/mL [facility] Comment: ADDITIONAL INFORMATION This test was developed and its performance characteristics determined by [facility] in a manner consistent with CLIA requirements. This test has not been cleared or approved by the U.S. Food and Drug Administration. Test Performed by: [facility] Laboratories - [address] [address] Energy Conservation Technician: Liu Davis Ph.D.; CLIA# [id number] Blood 08/03/2024 8:30 AM PHOTOCOPIER TECHNICIAN 08/03/2024 4:21 PM PHOTOCOPIER TECHNICIAN us Chelsie Francisco NP LAB BLOOD ORDERABLES F inal Result [facility] MATTHEW [address] [place] [address] [facility] * Homocysteine (08/03/2024 8:30 AM PHOTOCOPIER TECHNICIAN) [facility] Homocysteine 14.0 0.0 - 15.0 mcmol/L Comment:Testing performed by : [facility], [address] [place]., [address] Blood 08/03/2024 8:30 AM PHOTOCOPIER TECHNICIAN 08/04/2024 10:21 AM PHOTOCOPIER TECHNICIAN Chelsie Francisco MAIL READER LAB BLOOD ORDERABLES F inal Result Performing Organization Address [facility] de Phone Number [facility] MATTHEW [address] Department [employer] [place], [place] [id number] * Vitamin B12 (08/03/2024 8:30 AM PHOTOCOPIER TECHNICIAN) [facility] Vitamin B12 350 230 - 1,250 pg/mL Blood 08/03/2024 8:30 AM PHOTOCOPIER TECHNICIAN 08/03/2024 4:21 PM PHOTOCOPIER TECHNICIAN Chelsie Francisco MAIL READER LAB BLOOD ORDERABLES F inal Result Performing Organization Address [facility] de Phone Number [facility] MATTHE[facility] [address] Department [employer] [place], [place] [id number] * HEAD COMPUTED TOMOGRAPHY (CT) WITHOUT CONTRAST (07/11/2024 9:14 AM PHOTOCOPIER TECHNICIAN) Anatomical Region Laterality Modality N/A Computed Tomogra phy Marcell Rucker MD IMG CT PROCEDURES Final Result * eGFR (07/02/2024 10:20 AM PHOTOCOPIER TECHNICIAN) [facility] eGFR 66 >=60 mL/min/1. 73 m2 Comment: [...] reviewed 2021. Blood 07/02/2024 10:2 0 AM PHOTOCOPIER TECHNICIAN 07/02/2024 5:35 PM PHOTOCOPIER TECHNICIAN us Kimberly Nicolas MD LAB BLOOD ORDERABLES Final Resu lt [facility] [address] Department [place] [address] * Differential, auto (07/02/2024 10:20 AM PHOTOCOPIER TECHNICIAN) Neutrophil abs 5.1 1.5 - 6.5 K/cumm Imm gran abs 0.0 0.0 - 0.1 K/cumm [facility] Lymphocyte abs 1.4 0.8 - 3.3 K/cumm [facility] Monocyte abs 0.7 0.2 - 0.8 K/cumm [facility] Eosinophil abs 0.3 0.0 - 0.5 K/cumm [facility] Basophil abs 0.0 0.0 - 0.1 K/cumm [facility] Neutrophil pct 68.0 % [facility] Comment: Interpretive Data Percent cell [...] on 2017. Blood 07/02/2024 10:2 0 AM PHOTOCOPIER TECHNICIAN 07/02/2024 5:00 PM PHOTOCOPIER TECHNICIAN us Kimberly Nicolas MD LAB BLOOD ORDERABLES Final Resu lt [facility] [address] Department [place] [address] * (ABNORMAL) Urinalysis reflex to microscopic and culture Urine, clean voided (07/02/2024 10:20 AM PHOTOCOPIER TECHNICIAN) Color, ur Yellow Yellow Clarity, ur Clear Clear [facility] Specific gravity, ur 1.012 1.003 - 1.030 AILEEN pH, urine 6.5 [facility] Comment: Interpretive Data ? Urine pH is affected by diet, medications, systemic acid-base disturbances, and renal tubular function. ??pH may affect urinary stone formation. ??For example, urine pH below 6.0 may help reduce the tendency for calcium phosphate stones and pH greater than 6.0 may reduce the tendency for uric acid stone formation. Source: [facility] Current Interpretive Data was last revised [...] Reflex to microscopic UA will be performed. [facility] Urine, clean voided 07/02/2024 10:20 AM PHOTOCOPIER TECHNICIAN 07/02/2024 5:00 PM PHOTOCOPIER TECHNICIAN us Kimberly Nicolas MD LAB MICROBIOLOGY - [facility] MIA LEARY Final Result [facility] [address] Department [place] [address] * (ABNORMAL) CBC with auto differential (07/02/2024 10:20 AM PHOTOCOPIER TECHNICIAN) WBC 7.4 3.8 - 9.9 K/cumm Hgb [...] K/cumm [facility] Blood 07/02/2024 10:2 0 AM PHOTOCOPIER TECHNICIAN 07/02/2024 5:00 PM PHOTOCOPIER TECHNICIAN Kimberly Nicolas MD LAB BLOOD ORDERABLES Final Resu lt Performing Organization Address [facility] de Phone Number [facility]LE[facility] MATTHEW [address] [place] [address] * (ABNORMAL) Albumin Creatinine Ratio, Urine (07/02/2024 10:20 AM PHOTOCOPIER TECHNICIAN) Albumin Ur 45.5 mg/L Comment: Interpretive Data No reference range established. Current interpretive data was last revised 2018. Creatinine Ur 73.7 mg/dL [facility] Comment: Interpretive Data No reference range established. Current interpretive data was last revised 2018. Albumin Creatinine Ratio, Ur 62(H) 1 - 29 mg/g [facility] Urine 07/02/2024 10:2 0 AM PHOTOCOPIER TECHNICIAN 07/02/2024 5:00 PM PHOTOCOPIER TECHNICIAN Servando Torre MD LAB URINE ORDERABLES Final Result Performing Organization Address [facility] de Phone Number AILE[facility] MATTHEW [address] [facility] [place] [employer] [address] * Lamotrigine level (07/02/2024 10:20 AM PHOTOCOPIER TECHNICIAN) Lamotrigine 9.6 3.0 - 15.0 mcg/mL [place] ref [facility] Comment: ADDITIONAL INFORMATION This test was developed and its performance characteristics determined by [facility] in a manner consistent with CLIA requirements. This test has not been cleared or approved by the U.S. Food and Drug Administration. Test Performed by: [facility] Laboratories - [address] [address] Energy Conservation Technician: Liu Davis Ph.D.; CLIA# [id number] Blood 07/02/2024 10:2 0 AM PHOTOCOPIER TECHNICIAN 07/02/2024 5:00 PM PHOTOCOPIER TECHNICIAN Servando Torre MD LAB BLOOD ORDERABLES Final Result Performing Organization Address [facility] de Phone Number [facility] [address] Department [place] [address] [facility] * (ABNORMAL) Urinalysis, microscopic only (07/02/2024 10:20 AM PHOTOCOPIER TECHNICIAN) WBC, ur 6-10(A) 0 - 5 /HPF RBC, ur 3-5(A) 0 - 2 /HPF [facility] Epithelial cells, squamous, ur 1-5 0 - 5 /HPF [facility] Mucous, ur Present(A) [facility] Culture Reflex Comment Reflex conditions for urine culture (WBC >10) not met. [facility] Urine, clean voided 07/02/2024 10:20 AM PHOTOCOPIER TECHNICIAN 07/02/2024 5:00 PM PHOTOCOPIER TECHNICIAN Kimberly Nicolas MD LAB URINE ORDERABLES Final Resu lt Performing Organization Address [facility] Phone Number [facility] [address] [place] [address] * (ABNORMAL) Hemoglobin A1c (07/02/2024 10:20 AM PHOTOCOPIER TECHNICIAN) Hgb A1C 6.4(H) 4.0 - 5.6 % Estimated Average Glucose 137 mg/dL [facility] Comment: The ADA recommends reporting an estimated Average Glucose (eAG) with all Hemoglobin A1c results using the equation derived from a study of 507 normal and diabetic adults. ??Minority populations were underrepresented and children were not included. ?? (Diabetes Care 31:7031-9145, 2008). ??The eAG is not equivalent to a fasting glucose. Blood 07/02/2024 10:2 0 AM PHOTOCOPIER TECHNICIAN 07/02/2024 5:00 PM PHOTOCOPIER TECHNICIAN Servando Torre MD LAB BLOOD ORDERABLES Final Result Performing Organization Address [facility] de Phone Number [facility] MATTHEW [address] Department [place] [address] * (ABNORMAL) Lipid panel (07/02/2024 10:20 AM PHOTOCOPIER TECHNICIAN) Cholesterol 190 30 - 199 mg/dL Comment: [...] 4 [facility] Blood 07/02/2024 10:2 0 AM PHOTOCOPIER TECHNICIAN 07/02/2024 5:00 PM PHOTOCOPIER TECHNICIAN us Servando Torre MD LAB BLOOD ORDERABLES Final Result [facility] [address] Department [place] [address] * (ABNORMAL) Comprehensive metabolic panel (07/02/2024 10:20 AM PHOTOCOPIER TECHNICIAN) Sodium 141 135 - 145 mmol/L Potassium, pl 4.1 3.3 - 4.9 mmol/L [facility] Chloride 103 97 - 110 mmol/L [facility] CO2 27 22 - 32 mmol/L [facility] Anion gap 11 2 - 15 mmol/L [facility] BUN 16 6 - 25 mg/dL [facility] Creatinine 0.88 0.60 - 1.10 mg/dL [facility] Glucose 128 70 - 199 mg/dL [facility] Comment: Interpretive Data Fasting glucose >/= [...] [facility] CH Blood 07/02/2024 10:2 0 AM PHOTOCOPIER TECHNICIAN 07/02/2024 5:00 PM PHOTOCOPIER TECHNICIAN us Kimberly Nicolas MD LAB BLOOD ORDERABLES Final Resu lt [facility] [address] Department [place] [address] * XR Spine Lumbar 2 or 3 Views (06/18/2024 3:04 PM PHOTOCOPIER TECHNICIAN) Anatomical Region Laterality Modality Spine N/A Digital Radiogra phy 06/18/2024 5:05 PM PHOTOCOPIER TECHNICIAN Narrative 06/18/2024 5:13 PM PHOTOCOPIER TECHNICIAN EXAM DESCRIPTION: XR HIP LEFT 2 OR [...] no change from prior CT. There is [id number] multilevel degenerative endplate change with no acute [...] D: ??06/18/2024 5:13 PM T: Report ID: [id number] Reading Location: ??[id number] Procedure Note Teofilo Rand MD - 06/18/2024 [...] no change from prior CT. There is [id number] multilevel degenerative endplate change with no acute [...] signed by Teofilo ZAFAR T: Report ID: [id number] Reading Location: [place] [address] Pricilla Olguin NP IMG XR PROCEDURES Final Result * XR Hip Left 2+ Vw (06/18/2024 3:04 PM PHOTOCOPIER TECHNICIAN) Anatomical Region Laterality Modality Lower Extremities, Hip, Pelvis Left D igital Radiography 06/18/2024 5:05 PM PHOTOCOPIER TECHNICIAN Narrative 06/18/2024 5:13 PM PHOTOCOPIER TECHNICIAN EXAM DESCRIPTION: XR HIP LEFT 2 OR [...] no change from prior CT. There is brkv-[id number]-zqodmryc multilevel degenerative endplate change with no acute [...] D: ??06/18/2024 5:13 PM T: Report ID: [id number] Reading Location: ??[id number] Procedure Note Teofilo Rand MD - 06/18/2024 [...] no change from prior CT. There is fmmc-hs-pehmnpej multilevel degenerative endplate change with no acute [...] Teofilo Rand M.D. MJ T: Report ID: [id number] Reading Location: [id number] Pricilla Olguin NP IMG XR PROCEDURES Final [...] Bone mineral density was performed on a HoloFiretide Discovery Densitometer. ?? Based on machine cross-calibration [...] by the International Society of Clinical Densitometry. [id number] Servando Torre MD IMG DXA PROCEDURES Final Re sult from Last 3 Months or Most Recently Relevant to Health Maintenance Insurance MEDICARE [facility] MEDICARE SUPPLEMENT MEDICARE [facility] MEDICARE SUPPLEMENT MEDICARE [facility] MEDICARE [facility] Advance Directives For more information, please contact: [phone] * Full Code (Latest Code Status on [...] 9:30 AM 11/29/2022 3:28 PM Care Teams Straddle Truck Operator Relationship Specialty Start Date End Date Servando Torre MD [address] [facility] [address] [place] [address] PCP - General Family Medicine 06/19/22 Mariela Denton MD [address] [place] [address] Referring Physician Gastroenterology 06/19/22 Lexis Barroso OD [address] [place] [id number] Car Repairer Apprentice 09/19/22
--- NOTE | 2024-08-25 07:42 | ED_ITS ---
HPI - General Adult General Chief complaint: Head Injury Stated complaint: Fell, goose egg to back of head aspirin, ? LOC Time Seen by Provider: 08/25/24 06:52 History of Present Illness HPI narrative: 79-year-old female presenting to the emergency department for evaluation after having a ground level fall at night. Patient is typically supposed to use a walker, patient is unsure if she was using her walker last night but she was definitely not wearing traction socks. Patient did strike her head but denied loss of consciousness. Granddaughter is present states the patient is currently at her baseline. Patient denies any recent cough cold fevers, patient states she has been eating and drinking well. Related Data Home Medications ?Medication ?Instructions ?Recorded ?Confirmed ?Last Taken ?Type amlodipine 5 mg tablet 5 mg PO DAILY 08/18/21 08/11/24 08/10/24 History mesalamine 0.375 gram 0.75 g PO Q12H 08/18/21 08/11/24 08/10/24 History capsule,extended release 24 hr metoprolol tartrate 50 mg tablet 50 mg PO Q12H 08/18/21 08/11/24 08/10/24 History pantoprazole 40 mg tablet,delayed 40 mg PO HS 08/18/21 08/11/24 08/10/24 History release ferrous sulfate 324 mg (65 mg 324 mg PO DAILY 06/03/23 08/11/24 08/10/24 History iron) tablet,delayed release metformin 750 mg tablet,extended 750 mg PO DAILY 06/03/23 08/11/24 08/10/24 History release 24 hr vedolizumab 300 mg IV PUSH DIRECTED 06/03/23 08/11/24 08/03/24 History aspirin 81 mg capsule 81 mg PO QAM 03/20/24 08/11/24 08/10/24 History losartan 100 mg tablet 100 mg PO HS 03/20/24 08/11/24 08/10/24 History pravastatin 40 mg tablet 80 mg PO HS 03/20/24 08/11/24 08/10/24 History rivastigmine 4.6 mg/24 hour 4.6 mg topical HS 03/20/24 08/11/24 08/10/24 History transdermal patch calcium 315 mg (as 1 tablet PO DAILY 08/11/24 08/11/24 08/10/24 History citrate)-vitamin D3 5 mcg (200 unit) tablet (Calcium Citrate + D) lamotrigine 200 mg tablet 200 mg PO Q12H 08/11/24 08/11/24 08/10/24 History Allergies Allergy/AdvReac Type Severity Reaction Status Date / Time Penicillins Allergy Rash Verified 08/11/24 13:35 Review of Systems Review of Systems: All systems reviewed & are unremarkable except as noted in HPI and below PMFSH Past Medical History Medical History (Updated 08/25/24 @ 07:47 by Du Alvarado MD) Dementia of the Alzheimer's type Diabetes Osteopenia Pseudogout of knee Dementia Complex partial seizures MCI (mild cognitive impairment) Deafness in right ear Gastroesophageal reflux disease Hyperlipidemia Ulcerative colitis Hypertension Surgical History Surgical History History of dilation and curettage History of hip surgery Left hip surgery. Family History Family History Mother Diabetes mellitus Hypertension Cancer Cerebrovascular accident Afib Father Cancer Social History Social History Social History: Lives in [place]. Nonsmoker. No alcohol or illicit substance use. 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 Surrogate decision maker: Aby Riley, daughter. Code status: Full code. Smoking status: Never smoker Second hand tobacco smoke exposure: Yes Alcohol intake: never Substance use: never Substance use type: does not use Do You Feel Safe in your Home?: No Lack of Transportation: No Lack of Food: Never True Current Housing: I Have Housing Concerned About Future Housing: No Difficulty Paying Gas/Electric Bills: No Difficulty Paying for Meds: No Currently Unemployed: No Education: Bachelor's Degree Difficulty w/ Childcare or Family Care: No Spiritual care concerns: No Exam Narrative: APPEARANCE: Well appearing, no pain, no distress, well-nourished. HEAD: normocephalic, scalp hematoma. EYES: PERRLA/EOMI, conjunctivae clear. NOSE: Normal no drainage EARS:TMS clear with good light reflex. THROAT: Pharynx clear, no exudate. NECK: Supple. No adenopathy, no masses. RESPIRATORY: Airway patent, respirations nonlabored. Clear to auscultation bilaterally, no rales, rhonchi, wheezing. CARDIOVASCULAR: Regular rate and rhythm without murmurs rubs or gallops. ABDOMINAL: Soft, nontender, nondistended, normal bowel sounds MUSCULOSKELETAL: Moves all extremities. Strength/ROM intact, No edema, No calf tenderness. NEURO: Alert. Cranial nerves II through XII intact. Good gait. Good coordination SKIN: Contusion to left posterior scalp Course Vital Signs Vital signs: Vital Signs Temperature 97.5 F L 08/25/24 03:47 Pulse Rate 63 08/25/24 03:47 Respiratory Rate 14 08/25/24 03:47 Blood Pressure 135/59 L 08/25/24 03:47 Pulse Oximetry 96 08/25/24 03:47 Temperature 97.5 F L 08/25/24 03:47 Pulse Rate 63 08/25/24 03:47 Respiratory Rate 14 08/25/24 03:47 Blood Pressure 153/68 H 08/25/24 06:46 Pulse Oximetry 93 08/25/24 06:46 Medical Decision Making MDM Narrative Medical decision making narrative: 79-year-old female present to the emergency department for evaluation after having a head injury and ground level fall. Patient does have a small hematoma on the left posterior scalp. No bleeding. No laceration. Patient denies any other pain or injury. Patient had no tenderness to palpation Differential Diagnosis Differential Diagnosis: Subdural hematoma, subarachnoid hemorrhage, cervical spine fracture Vital Signs Vital Signs: Vital Signs Temperature 97.5 F L 08/25/24 03:47 Pulse Rate 63 08/25/24 03:47 Respiratory Rate 14 08/25/24 03:47 Blood Pressure 135/59 L 08/25/24 03:47 Pulse Oximetry 96 08/25/24 03:47 Temperature 97.5 F L 08/25/24 03:47 Pulse Rate 63 08/25/24 03:47 Respiratory Rate 14 08/25/24 03:47 Blood Pressure 153/68 H 08/25/24 06:46 Pulse Oximetry 93 08/25/24 06:46 Discharge Plan Discharge Clinical Impression: Hematoma, Head injury Patient Disposition: NH Residential/Asst Living Condition: Stable Instructions: Antibiotic Form, Head Injury (ED) Additional Instructions: Use your walker when ambulating even at nighttime. Have close follow-up with your primary care physician. Patient Language: Welsh Prescriptions: No Action amlodipine 5 mg tablet 5 mg PO DAILY pantoprazole 40 mg tablet,delayed release (DR/EC) 40 mg PO HS metoprolol tartrate 50 mg tablet 50 mg PO Q12H mesalamine 0.375 gram capsule,extended release 24hr 0.75 g PO Q12H metformin 750 mg tablet extended release 24 hr 750 mg PO DAILY vedolizumab 300 mg 300 mg IV PUSH DIRECTED Rx Instructions: Infuse 5ml every 8 weeks ferrous sulfate 324 mg (65 mg iron) tablet,delayed release (DR/EC) 324 mg PO DAILY pravastatin 40 mg tablet 80 mg PO HS losartan 100 mg tablet 100 mg PO HS rivastigmine 4.6 mg/24 hour patch 24 hour 4.6 mg topical HS aspirin 81 mg Capsule 81 mg PO QAM calcium citrate-vitamin D3 [Calcium Citrate + D] 315 mg-5 mcg (200 unit) tablet 1 tablet PO DAILY lamotrigine 200 mg tablet 200 mg PO Q12H Follow-up/Referrals: Yelitza,Servando Bernstein MD [Primary Care Provider] -
--- NOTE | 2024-08-25 07:49 | PC.NURSE ---
Patient able to ambulate with assistance of walker.
== END 2024-08-25 07:55 ==
PROVIDERS: Emergency Provider Emergency Medicine; PCP Family Medicine
DX: S00.03XA Contusion of scalp, initial encounter (principal); G30.9 Alzheimer's disease, unspecified; F06.70 Mild neurocognitive disorder due to known physiological condition without behavioral disturbance; I10 Essential (primary) hypertension; E11.9 Type 2 diabetes mellitus without complications; E78.5 Hyperlipidemia, unspecified; K21.9 Gastro-esophageal reflux disease without esophagitis; K51.90 Ulcerative colitis, unspecified, without complications; M85.80 Other specified disorders of bone density and structure, unspecified site; Z77.22 Contact with and (suspected) exposure to environmental tobacco smoke (acute) (chronic); Z79.899 Other long term (current) drug therapy; Z79.82 Long term (current) use of aspirin; Z79.84 Long term (current) use of oral hypoglycemic drugs; W18.30XA Fall on same level, unspecified, initial encounter
CPT/HCPCS: 70450; 72125; 99284

== ENCOUNTER 2024-09-13 20:03 | Inpatient (IN) | payer MEDICARE, SELFPAY ==
--- NOTE | ~2024-09-13 | XR_ITS ---
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 RESULT: Lines, tubes, and devices: None. Lungs and pleura: Linear scar/atelectasis in the left midlung. Mild diffuse reticular opacities. Cardiomediastinal silhouette: Stable. Other: No acute osseous or upper abdominal finding. IMPRESSION: Mild interstitial edema. Reviewed, dictated and finalized at location K. [employer] HE[employer] OUTREACH WORKER IMPRESSION: Mild interstitial edema.
--- NOTE | ~2024-09-13 | CT_ITS ---
EXAMINATION: CT brain wo con DATE: 09/13/2024 21:42 INDICATION: Weakness, frequent falls . TECHNIQUE: Computed tomography (CT) of the head was performed without intravenous contrast. The mA wa s adjusted according to patient size. Iterative reconstruction technique was employed. The dose-lengt h product was 605.33 mGy-cm. COMPARISON: 08/25/2024. FINDINGS: No acute intracranial hemorrhage or extra-axial fluid collection. No hydrocephalus, mass, or herniation. No acute ischemic infarct. Unremarkable dural venous sinus attenuation. No acute osseous abnormality. The aerated spaces are clear. Mild atrophy and moderate chronic white matter change. Atherosclerotic intracranial calcification. Ri ght lens replacement. IMPRESSION: No acute intracranial process. Reviewed, dictated and finalized at location K. EXPLORATION ENGINEER
--- NOTE | ~2024-09-13 | XR_ITS ---
EXAM: XR pelvis 1-2V DATE: 09/13/2024 23:40 HISTORY: Frequen falls. bruising in groin . COMPARISON: 06/10/2024. FINDINGS: Osteopenia. No fracture or dislocation. No lytic or blastic lesion. Lumbar degenerative di sc disease. Mild right hip osteoarthritis. Partially visualized left hip arthroplasty hardware and fe moral fixation hardware. No erosion or periosteal change. Heterotopic ossification adjacent to the le ft hip. Pelvic soft tissue phleboliths. IMPRESSION: No acute osseous finding in the pelvis. Partially visualized, uncomplicated appearing lef t hip arthroplasty and femoral fixation hardware. Reviewed, dictated and finalized at location K. RAL PRE ARRANGEMENT SPECIALIST IMPRESSION: No acute osseous finding in the pelvis. Partially visualized, uncom plicated appearing left hip arthroplasty and femoral fixation hardware.
--- NOTE | 2024-09-13 20:05 | ECG_ITS ---
Test Date: 2024-09-13 20:36:19 Measurements Intervals [place] Rate: 42 P: 69 CO: 157 QRS: 20 QRSD: 86 T: 34 QT: 455 QTc: 383 Interpretive Statements SINUS BRADYCARDIA WITH MARKED SINUS ARRHYTHMIA ANTERIOR INFARCT, AGE INDETERMINATE BASELINE ARTIFACT- I, II, III, AVR, AVL, AVF, V1-V6 ABNORMAL ECG Compared to ECG 08/11/2024 04:59:07 HEART RATE HAS DECREASED SINUS ARRHYTHMIA NOW PRESENT Electronically Signed On 09-14-2024 06:24:01 SINGER BACK TENDER by Rahat Guzmán D.O.
--- OUTSIDE RECORDS SUMMARY | 2024-09-13 20:06 | XMS_ITS | Encounter Summary ---
Author Organization [facility] Address [address] [place] [address] Care Team Providers Care Vice Investigator Name Role Phone Jared Abrams MD Primary Care Provider [phone] Servando Torre MD Primary Care Provider [phone] Encounter Details Date Type Department Care Team (Late st Contact Info) Description 06/18/2022 Therapy Plan [facility] One Day Services [address] [place] [address] Mariela Denton MD [facility] [address] [facility] [address] [place] [address] Social History Tobacco Use Types Packs/Day Years [...] st Contact Info) Description 09/28/2024 2:30 PM AERIAL GUNNER SUPERINTENDENT Appointment [facility] [id number] [place] [address] Josué Cook MD [address] [address] documented as of this encounter Goals Goal Patient Goal Type Associated Problems Recent Progress Patient-Stated? Author HOME TO INDEPENDENT LIVING General No Vannessa Blackwell RN documented as of this encounter Visit Diagnoses Diagnosis Chronic ulcerative colitis, unspecified complication (CMS/HCC [facility])- Primary documented in this encounter Additional Health Concerns Assessment Noted Time PHQ-9 Depression Total Score: 0 07/06/20 21 4:06 PM AERIAL GUNNER SUPERINTENDENT documented as of this encounter Care Teams Vice Investigator Relationship Specialty Start Date End Date Jared Abrams MD PCP - General 08/28/11 07/16/22 Servando Torre MD [address] [facility] [address] [place] [address] PCP - General FAMILY PRACTICE 07/17/22 documented as of this encounter
--- OUTSIDE RECORDS SUMMARY | 2024-09-13 20:06 | XMS_ITS | Clinical Summary ---
Author Organization [facility] Address [address] [place] [address] Care Team Providers Care File Keeper Name Role Phone Servando Torre MD Primary Care Provider + [phone] Allergies Active Allergy Reactions Criticality Noted Date [...] tests 05/20/2023 Chronic ulcerative colitis, unspecified complication ([facility]) 06/18/2022 Ulcerative pancolitis withou t complication ([facility]) 09/04/2021 Overview (09/04/2021): Added automatically from request for surgery [id number] Colitis 03/20/2020 Encounters Date Type Department Care Team Description 08/03/2024 2:16 PM CONDUIT BENDER - 08/03/2024 3:00 PM CONDUIT BENDER Hospital Encounter [facility] [address] [place] [address] Josué Cook MD Discharge Disposition: Home or Self Care (Routine Discharge) 08/03/2024 Travel from Last 3 Months Family History [...] Comments Blood Pressure 129/56 08/03/2024 2:46 PM CONDUIT BENDER Pulse 65 05/28/2024 2:06 PM CDT Temperature 36.7 C (98 F) 08/03/2024 1:44 PM CONDUIT BENDER Respiratory Rate 18 05/28/2024 2:06 PM CDT Oxygen Saturation 97% 08/03/2024 1:42 PM CONDUIT BENDER Inhaled Oxygen Concentration - - Weight 69.9 kg (154 lb) 04/19/2022 2:44 PM CDT Height 157.5 cm (5' 2 ) 04/19/2022 2:44 PM CDT Body Mass Index 28.17 04/19/2022 2:44 PM CDT Plan of Treatment Upcoming Encounters Date Type Department Care Team (Late st Contact Info) Description 09/28/2024 2:30 PM CONDUIT BENDER Appointment [facility] [id number] [place] [address] Josué Cook MD [address] [facility] [address] [place] [address] Health Maintenance Due Date Last Done Comments DTaP, Tdap and Td Vaccines ( 1 - Tdap) 1964 Annual Medicare Wellness Visit 2008 RSV Immunization or 60+ Years (1 - 1-dose 75+ series) 2018 COVID-19 Vaccine (2 - Pfizer risk series) 06/20/2022 05/30/2022 Influenza Adult (#1) 2024 05/06/2022 PHQ-2 (Physician [place]) 07/28/2024 Zoster Vaccines Completed 08/01/2020, 05/30/2020 Dexa [...] TO INDEPENDENT LIVING General No Vannessa Blackwell dedenter Procedure Name Priority Date/Time Associated Diagnosis Comments C-REACTIVE PROTEIN Routine 08/03/2024 1: 30 PM CONDUIT BENDER Chronic ulcerative colitis, unspecified complication (CMS/HCC HHS/HCC) Abnormal liver function tests CBC W/DIFF AUTOMATED Routine 08/03/2024 1:30 PM CONDUIT BENDER Chronic ulcerative colitis, unspecified complication (CMS/HCC HHS/HCC) Abnormal liver function tests COMPREHENSIVE METABOLIC PANEL Routine 08/03/2024 1:30 PM CONDUIT BENDER Chronic ulcerative colitis, unspecified complication (CMS/HCC HHS/HCC) Abnormal liver function tests from Last 3 Months Results * (ABNORMAL) COMPREHENSIVE METABOLIC PANEL (08/03/2024 1:30 PM CONDUIT BENDER) Pathologist [facility] GLUCOSE 160(H) 70 - 99 MG/DL 08/03/2024 2:57 PM [facility] BUN 18 7 - 18 MG/DL 08/03/2024 2:57 PM [facility] CREATININE S/P/B 1.21(H) 0.55 - 1.02 MG/DL 08/03/2024 2:57 PM [facility] SODIUM S/P/B 142 136 - 145 MMOL/L 08/03/2024 2:57 PM [facility] POTASSIUM S/P/B 4.0 3.5 - 5.1 MMOL/L 08/03/2024 2:57 PM [facility] CHLORIDE S/P/B 105 100 - 108 MMOL/L 08/03/2024 2:57 PM [facility] CO2 25.9 21 - 32 MMOL/L 08/03/2024 2:57 PM [facility] CALCIUM S/P/B 9.7 8.5 - 10.1 MG/DL 08/03/2024 2:57 PM [facility] BILIRUBIN TOTAL S/P/B 0.4 0.2 - 1.2 MG/DL 08/03/2024 2:57 PM [facility] TOTAL PROTEIN S/P/B 6.8 6.4 - 8.2 G/DL 08/03/2024 2:57 PM CONDUIT BENDER [facility] ALBUMIN S/P/B 3.7 3.4 - 5.0 G/DL 08/03/2024 2:57 PM [facility] AST 16 15 - 37 U/L 08/03/2024 2:57 PM [facility] ALT 17 14 - 55 U/L 08/03/2024 2:57 PM [facility] ALKALINE PHOSPHATASE S/P/B 120 50 - 136 U/L 08/03/2024 2:57 PM [facility] ANION GAP 11.1 5 - 15 MMOL/L 08/03/2024 2:57 PM [facility] BUN CREATININE RATIO 14.9 6 - 26 08/03/2024 2:57 PM [facility] A/G RATIO 1.2 1.0 - 2.0 RATIO 08/03/2024 2:57 PM [facility] GFR ESTIMATE 45(L) >90 ML/MIN/1.7 3 M2 08/03/2024 2:57 PM [facility] Comment: NOTE: eGFR is not calculated for patients <18 years of age. This is an estimated GFR calculation using the new CKD EPI creatinine equation without race and so does not require a correction factor for race. This estimated GFR should not be used for calculating drug doses. 08/03/2024 1:30 PM CONDUIT BENDER us Josué Cook MD LABORATORY Final Result [facility] [address] [place] [address], * C-REACTIVE PROTEIN (08/03/2024 1:30 PM CONDUIT BENDER) C-REACTIVE PROTEIN <0.29 <0.29 mg/dL 08/03/2024 10:01 PM CONDUIT BENDER [facility] 08/03/2024 1:30 PM CONDUIT BENDER Josué Cook MD LABORATORY Final Result [facility] [address] [place] [address], * (ABNORMAL) CBC W/DIFF AUTOMATED (08/03/2024 1:30 PM CONDUIT BENDER) [facility] WBC 8.96 4.4 - 11.0 x10'3/uL 08/03/2024 2:20 PM [facility] RBC 4.72 4.50 - 5.10 x10'6/uL 08/03/2024 2:20 PM [facility] HGB 13.7 12.3 - 15.3 G/DL 08/03/2024 2:20 PM [facility] HCT 42.2 35.9 - 44.6 % 08/03/2024 2:20 PM [facility] MCV 89.4 80.0 - 96.0 FL 08/03/2024 2:20 PM CONDUIT BENDER [facility] MCH 29.0 25.3 - 30.9 PG 08/03/2024 2:20 PM CONDUIT BENDER [facility] MCHC 32.5 31.0 - 34.1 G/DL 08/03/2024 2:20 PM [facility] RDW 13.8 12.4 - 15.1 % 08/03/2024 2:20 PM [facility] PLT 278 151 - 353 x10'3/uL 08/03/2024 2:20 PM [facility] MPV 9.0(L) 9.6 - 12.0 FL 08/03/2024 2:20 PM CONDUIT BENDER [facility] RBC MORPHOLOGY NORMAL 08/03/2024 2:20 PM [facility] PLT MORPH. NORMAL 08/03/2024 2:20 PM [facility] WBC MORPHOLOGY NORMAL 08/03/2024 2:20 PM [facility] LYMPHOCYTES % 22.2 15.8 - 45.0 % 08/03/2024 2:20 PM [facility] NEUTROPHILS % 67.6 42.1 - 71.9 % 08/03/2024 2:20 PM [facility] MONOCYTES % 9.2 5.7 - 12.5 % 08/03/2024 2:20 PM [facility] EOSINOPHILS 0.0 0.0 - 5.6 % 08/03/2024 2:20 PM [facility] BASOPHILS 0.6 0.0 - 1.3 % 08/03/2024 2:20 PM [facility] ABS. NEUTROPHILS 6.06(H) 1.40 - 6.00 x10'3/uL 08/03/2024 2:20 PM [facility] IMMATURE GRANS % 0.4 0.0 - 0.5 % 08/03/2024 2:20 PM [facility] ABS. LYMPHOCYTES 1.99 0.80 - 4.70 x10'3/uL 08/03/2024 2:20 PM [facility] 08/03/2024 1:30 PM CONDUIT BENDER us Josué Cook MD LABORATORY Final Result [facility] [address] [place] [id number], [place] [phone] from Last 3 Months Insurance MEDICARE [facility] Advance Directives * Full Code (Latest Code Status on File) Date Activated Date Inactivated Comments 03/20/2020 11:16 AM 03/23/2020 7:48 PM Care Teams File Keeper Relationship Specialty Start Date End Date Servando Torre MD [address] [place] [address] [address] [place] [address] PCP - General FAMILY PRACTICE 07/17/22
--- OUTSIDE RECORDS SUMMARY | 2024-09-13 20:06 | XMS_ITS | Encounter Summary ---
Author Organization [facility] Address [address] [place] [address] Care Team Providers Care Shell Press Operator Name Role Phone Servando Torre MD Primary Care Provider + [phone] Encounter Details Date Type Department Care Team (Late st Contact Info) Description 05/01/2023 Therapy Plan [facility] One Day Services [address] [place] [address] Josué Cook MD [address] [address] Social History Tobacco Use Types Packs/Day Years [...] st Contact Info) Description 09/28/2024 2:30 PM WASTE RECYCLER Appointment [address] [address] Josué Cook MD [address] [address] documented as of this encounter Goals Goal Patient Goal Type Associated Problems Recent Progress Patient-Stated? Author HOME TO INDEPENDENT LIVING [facility] No Vannessa Blackwell RN documented as of this encounter Visit Diagnoses Diagnosis Chronic ulcerative colitis, unspecified complication (CMS/HCC HHS/HCC)- Primary Abnormal liver function tests Other abnormal blood chemistry documented in this encounter Additional Health Concerns Assessment Noted Time PHQ-9 Depression Total Score: 0 07/06/20 21 4:06 PM WASTE RECYCLER documented as of this encounter Care Teams Shell Press Operator Relationship Specialty Start Date End Date Servando Torre MD [address] [place] [address] [address] [place] [address] PCP - General FAMILY PRACTICE 07/17/22 documented as of this encounter
--- OUTSIDE RECORDS SUMMARY | 2024-09-13 20:06 | XMS_ITS | Encounter Summary ---
Author Organization [facility] Address [address] [place] [address] Care Team Providers Care Orthotic Finish Grinding Technician Name Role Phone Servando Torre MD Primary Care Provider + [phone] Encounter Details Date Type Department Care Team (Late st Contact Info) Description 08/19/[address] [facility] One Day Services [address] [place] [address] Josué Cook MD [address] [address] Social History Tobacco Use Types Packs/Day Years [...] st Contact Info) Description 09/28/2024 2:30 PM GIG TENDER Appointment [address] [address] Josué Cook MD [address] [address] documented as of this encounter Goals Goal Patient Goal Type Associated Problems Recent Progress Patient-Stated? Author HOME TO INDEPENDENT LIVING [facility] No Vannessa Blackwell RN documented as of this encounter Visit Diagnoses Diagnosis Abnormal liver function tests- Primary Other abnormal blood chemistry Chronic ulcerative colitis, unspecified complication ([facility]/HCC [facility]/HCC) documented in this encounter Additional Health Concerns Assessment Noted Time PHQ-9 Depression Total Score: 0 07/06/20 21 4:06 PM GIG TENDER documented as of this encounter Care Teams Orthotic Finish Grinding Technician Relationship Specialty Start Date End Date Servando Torre MD [address] [place] [address] [address] [place] [address] PCP - General FAMILY PRACTICE 07/17/22 documented as of this encounter
--- OUTSIDE RECORDS SUMMARY | 2024-09-13 20:06 | XMS_ITS | Encounter Summary ---
Author Organization [facility] Healthcare Address [address] [place] [address] Care Team Providers Care Commercial Fishing Vessel Operator Name Role Phone Servando Torre MD Primary Care Provider [phone] Mariela Denton MD Unavailable [phone] Lexis Barroso OD Unavailable +- [phone] Kristopher Hopson RN Unavailable [phone] Reason for Visit * Reason Comments Urinary Problem Urinary frequency, u rgency and incontinence x 1 week and started confusion started today Encounter Details Date Type Department Care Team (Late st Contact Info) Description 09/13/2024 6:00 PM STONE SPLITTER Office Visit [facility] Medical Group Convenient Care at [address] [address] Pricilla Olguin NP [address] [place] [address] [address] [place] [address] Urinary incontinence, unspecified type (Primary Dx); Bradycardia; Confusion Social History Tobacco Use Types Packs/Day Years [...] on file Legal Sex Female 9:30 AM STONE SPLITTER Gender Identity Female 04/05/2022 6:17 PM CDT Sexual Orientation Straight 04/05/2022 6: 17 PM CDT documented as of this encounter Last Filed Vital Signs Vital Sign Reading Time Taken Comments Blood Pressure 138/62 09/13/2024 6:27 PM STONE SPLITTER Pulse 39 09/13/2024 6:47 PM STONE SPLITTER Temperature 36.9 C (98.5 F) 09/13/2024 6:27 PM STONE SPLITTER Respiratory Rate 24 09/13/2024 6:27 PM STONE SPLITTER Oxygen Saturation 91% 09/13/2024 6:47 PM STONE SPLITTER Inhaled Oxygen Concentration - - Weight 63.5 kg (140 lb) 09/13/2024 6:27 PM STONE SPLITTER Height - - Body Mass Index 25.61 09/02/2024 1:14 PM STONE SPLITTER documented in this encounter Plan of Treatment Scheduled Orders Name Type Priority Associated Diagnoses Orde r Schedule Urine culture Urine, clean voided Microbiology Routine Urinary incontinence, unspecified type Expected: 09/13/2024, Expires: 09/13/2025 documented as of this encounter Procedures Procedure Name Priority Date/Time Associated Diagnosis Comments POCT URINALYSIS DIPSTICK Routine 09/13/2024 6:32 PM STONE SPLITTER Urinary incontinence, unspecified type documented in this encounter Results * (ABNORMAL) POCT urinalysis dipstick (09/13/2024 6:32 PM STONE SPLITTER) Color, Urine, POC Light Yellow Clarity, ur, POC Cloudy(A) Clear Glucose, ur, POC Negative Negative MG/DL Bilirubin, ur, POC Negative Negative, Small, Moderate, Large Ketones, ur, POC Negative Negative Specific [place], POC 1.005 1.003 - 1.030 Blood, ur, POC Moderate(A) Negative pH, ur, POC 6.5 5.0 - 8.0 Protein, ur, POC Negative Negative Urobilinogen, urine, POC 0.2 0.2 - 1.0 mg/dL Nitrite, ur, POC Negative Negative Leukocytes, ur, POC Trace(A) Negative Lot Number [id number] Urine 09/13/2024 6:32 PM STONE SPLITTER Pricilla Olguin LIGHT RAIL TRANSIT OPERATOR POINT OF CARE TEST ORDERABLES F inal Result documented in this encounter Visit Diagnoses Diagnosis Urinary incontinence, unspecified type- Primary Bradycardia Other specified cardiac dysrhythmias Confusion Unspecified psychosis documented in this encounter Care Teams Commercial Fishing Vessel Operator Relationship Specialty Start Date End Date Servando Torre MD [address] [facility] [address] [place] [address] PCP - General Family Medicine 06/19/22 Mariela Denton MD [facility] [address] [place] [address] Referring Physician Gastroenterology 06/19/22 Lexis Barroso OD [address] [address] Glue Drier Operator 09/19/22 Kristopher Hopson RN [address] [place] [address] [address] [place] [address] Warehouse Technician 08/25/24 documented as of this encounter
--- OUTSIDE RECORDS SUMMARY | 2024-09-13 20:06 | XMS_ITS | Continuity of Care Document ---
Author Organization [facility] Address [address] [facility] [address] [place] [address] Phone Care Team Providers Care Regional Account Executive Name Role Phone Saul Ribera PT Unavailable [...] Diagnoses Date Provider Providers Copied on Encounter [facility], [id number], tel:[phone] [place] No Information 3 Bacilio Saul. . [facility], [id number], tel:[phone] [facility] No Information 3 Bacilio Saul. . Referring Provider: Servando Bernstein, [facility] [place], [address]. tel:[phone] [facility] [address], [id number], tel:[phone] [facility] No Information 3 Bacilio Saul. . Referring Provider: Servando Bernstein, [facility] [place], [address]. tel:[phone] [facility] [address], [id number], tel:[phone] [facility] Urge incontinence 3 Bacilio Saul. . Referring Provider: Servando Bernstein, [facility] [place], [address]. tel:[phone] [facility], [address] [facility], [place], [place], [id number], [place] tel:[phone] [facility] No Information [place]-1 3 Bacilio Saul. . Referring Provider: Servando Bernstein, [address] [place], [address]. tel:[phone] [facility] [address] [facility], [place], [place], [address], [place] tel:[phone] [facility] No Information Franklin-1 - 3 Bacilio Saul. . Referring Provider: Servando Bernstein, [address] [place], [address]. tel:[phone] [facility] [address] [address], [place], [id number], tel:[phone] [facility] No Information [place]-0 6 3 Bacilio Saul. . Referring Provider: Servando Bernstein, [address] [place], [address]. tel:[phone] [facility] [address] [address], [place], [place], [address], tel:[phone] [facility] No Information [place]-0 3 Bacilio Saul. . Referring Provider: Servando Bernstein, [address] [place], [address]. tel:[phone] [facility] [address] [facility], [place], [id number], [place] tel:[phone] [facility] No Information Franklin-0 - 3 Bacilio Saul. . Referring Provider: Servando Bernstein, [address] [place], [address]. tel:[phone] [facility], [address] [facility] [address], [place], [place], [address], [place] tel:[phone] [facility] No Information November- 3 Bacilio Saul. . Referring Provider: Servando Bernstein, [address] [facility], [place], [address]. tel:[phone] [facility], [address] [address], [place], [place], [id number], tel:[phone] [facility] No Information November- 3 Bacilio Saul. . Referring Provider: Servando Bernstein, [address] [facility], [place], [address]. tel:[phone] [facility], [address] [address], [place], [place], [address], tel:[phone] [facility] No Information November- 3 Bacilio Saul. . Referring Provider: Servando Bernstein, [address] [place], [address]. tel:[phone] [facility], [address] [address], [place], [place], [address], tel:[phone] [facility] No Information 3 Bacilio Saul. . Referring Provider: Servando Bernstein, [address] [place], [address]. tel:[phone], [id number], tel:[phone] [facility] No Information November- 3 Bacilio Saul. . Referring Provider: Servando Bernstein, [address] [place], [address]. tel:[phone] [facility], [address] [address], [place], [place], [address], tel:[phone] [facility] No Information 3 Bacilio Saul. . Referring Provider: Servando Bernstein, [address] [place], [address]. tel:[phone] [facility] [address], [place], [id number], [place] tel:[phone] [facility] No Information May-0 9-202 3 Bacilio Saul. . Referring Provider: Servando Bernstein, [address] [place], [address]. tel:[phone] [facility] [address] [address], [place], [address], [place] tel:[phone] [facility] No Information May-0 3-202 3 Bacilio Saul. . Referring Provider: Servando Bernstein, [address] [place], [address]. tel:[phone] [facility], [address] [address], [place], [place], [address], tel:[phone] [facility] No Information May-0 2-202 3 Bacilio Saul. . Referring Provider: Servando Bernstein, [address] [place], [address]. tel:[phone] [facility], [id number], tel:[phone] [facility] No Information Apr-2 7-202 3 Bacilio Saul. . Referring Provider: Servando Bernstein, [address] [place], [address]. tel:[phone] [facility], [id number], [place] tel:[phone] [facility] Unspecified urinary incontinenceUrge incontinence Apr-2 5-202 3 Bacilio Saul. . Referring Provider: Servando Bernstein, [address] [place], [address]. tel:[phone] [facility], [address] [address], [place], [place], [address], [place] tel:[phone] [facility] No Information Apr-2 0-202 3 Bacilio Saul. . Referring Provider: Servando Bernstein, [address] [facility], [place], [address]. tel:[phone] [facility], [address] [address], [place], [place], [address], tel:[phone] [facility] No Information Apr-1 8-202 3 Bacilio Saul. . Referring Provider: Servando Bernstein, [address] [facility], [place], [address]. tel:[phone] [facility], [address] [address], [place], [address], [place] tel:[phone] [facility] No Information Apr-1 4-202 3 Bacilio Saul. . Referring Provider: Servando Bernstein, [address] [place], [address]. tel:[phone] [facility], [address] [address], [place], [address], [place] tel:[phone] [facility] No Information Apr-1 3-202 3 Bacilio Saul. . Referring Provider: Servando Bernstein, [address] [place], [address]. tel:[phone] [facility], [address], [id number], [place] tel:[phone] [facility] No Information Apr-0 6-202 3 Bacilio Saul. . Referring Provider: Servando Bernstein, [address] [place], [address]. tel:[phone] [facility] [address], [place], [address], [place] tel:[phone] [facility] No Information Apr-0 4-202 3 Bacilio Saul. . Referring Provider: Servando Bernstein, [address] [place], [address]. tel:[phone] [place] [address], [address] [address], [place], [address], [place] tel:[phone] [facility] No Information Mar-3 1-202 3 Bacilio Saul. . Referring Provider: Servando Bernstein, [address] [place], [address]. tel:[phone] [facility] [address], [place], [address], [place] tel:[phone] [facility] No Information Mar-3 0-202 3 Bacilio Saul. . Referring Provider: Servando Bernstein, [address] [place], [address]. tel:[phone] [facility] [address], [place], [place], [address], tel:[phone] [facility] No Information Mar-2 3-202 3 Bacilio Saul. . Referring Provider: Servando Bernstein, [address] [place], [address]. tel:[phone] [facility], [id number], [place] tel:[phone] [facility] No Information Mar-2 1-202 3 Bacilio Saul. . Referring Provider: Servando Bernstein, [address] [place], [address]. tel:[phone] [facility] [address], [place], [place], [address], [place] tel:[phone] [facility] No Information Mar-1 5- 3 Bacilio Saul. . Referring Provider: Servando Bernstein, [address] [place], [address]. tel:[phone] [facility] [address], [place], [address], [place] tel:[phone] [facility] Unspecified urinary incontinenceUnsp ecified urinary incontinence Mar-1 3-202 3 Bacilio Saul. . Referring Provider: Servando Bernstein, [address] [facility], [place], [address]. tel:[phone] [facility], [address] [address], [place], [place], [address], tel:[phone] [place] No Information Sep- 3 Bacilio Saul. . Referring Provider: Servando Bernstein, [address] [facility], [place], [address]. tel:[phone] [facility], [address] [address], [place], [address], [place] tel:[phone] [place] No Information 3 Bacilio Saul. . Referring Provider: Servando Bernstein, [address] [facility], [place], [address]. tel:[phone] [facility], [address] [address], [place], [address], [place] tel:[phone] [place] No Information 3 Bacilio Saul. . Referring Provider: Servando Bernstein, [address] [place], [address]. tel:[phone] [address], [place], [place], [address], [place] tel:[phone] [place] No Information 3 Bacilio Saul. . Referring Provider: Servando Bernstein, [address] [facility], [place], [address]. tel:[phone] [facility], [address] [address], [place], [place], [address], [place] tel:[phone] [place] No Information 3 Fatimah Jimenez. . Referring Provider: Servando Bernstein, [address] [place], [address]. tel:[phone] [facility], [address] [address], [place], [address], [place] tel:[phone] [place] No Information 3 Bacilio Saul. . Referring Provider: Servando Bernstein, [facility] [place], [address]. tel:[phone] [facility], [address] [address], [place], [place], [address], [place] tel:[phone] [place] No Information 3 Bacilio Saul. . Referring Provider: Servando Bernstein, [address] [place], [address]. tel:[phone] [facility] [address], [place], [place], [address], tel:[phone] [place] No Information 3 Bacilio Saul. . Referring Provider: Servando Bernstein, [address] [place], [address]. tel:[phone] [facility], [id number], [place] tel:[phone] [place] No Information 3 Bacilio Saul. . Referring Provider: Servando Bernstein, [facility] [place], [address]. tel:[phone] [facility], [id number], [place] tel:[phone] [place] No Information 3 Bacilio Saul. . Referring Provider: Servando Bernstein, [facility] [place], [address]. tel:[phone] [facility] [address], [place], [place], [address], tel:[phone] [place] No Information 3 Bacilio Saul. . Referring Provider: Servando Bernstein, [address] [facility], [place], [address]. tel:[phone] [facility] [address] [address], [place], [place], [address], tel:[phone] [place] No Information 3 Bacilio Saul. . Referring Provider: Seravndo Bernstein, [address] [facility], [place], [address]. tel:[phone] [facility], [address] [facility], [place], [place], [address], [place] tel:[phone] [place] No Information 3 Bacilio Saul. . Referring Provider: Servando Bernstein, [address] [facility], [place], [address]. tel:[phone] [facility], [address] [address], [place], [place], [address], tel:[phone] [place] No Information 3 Bacilio Saul. . Referring Provider: Servando Bernstein, [address] [facility], [place], [address]. tel:[phone] [facility], [address] [place] [address], [place], [place], [address], tel:[phone] [place] No Information 3 Jama [place], [place]. Referring Provider: Servando Bernstein, [address] [facility], [place], [address]. tel:[phone] [facility], [address] [facility] [facility], [place], [place], [address], [place] tel:[phone] [place] No Information 2 Bacilio Saul. . Referring Provider: Servando Bernstein, [address] [facility], [place], [address]. tel:[phone] [facility] [facility], [place], [place], [address], tel:[phone] [place] No Information 2 Bacilio Mcdonald . Referring Provider: Servando Bernstein, [facility], [place], [address]. tel:[phone] [facility], [address], [place], [place], [address], [place] tel:[phone] [place] Urge incontinence 2 Titus Nicolasla. [address] [facility], [address], [place], [address], [place]. tel: [phone] Referring Provider: Servando Bernstein, [address] [facility], [place], [address]. tel:[phone] Family History Family Member Type Diagnosis Age At Onset No Information Payers Payer name Insurance type Covered libertarian ID Authoriza tion(s) Medicare [place] MB [id number] [facility] [id number] Social History Type Description Quantity Date Captured [...]
--- OUTSIDE RECORDS SUMMARY | 2024-09-13 20:06 | XMS_ITS | Encounter Summary ---
Author Organization [facility] Healthcare Address [address] [place] [address] Care Team Providers Care Agricultural Equipment Mechanic Name Role Phone Servando Torre MD Primary Care Provider [phone] Mariela Denton MD Unavailable [phone] Lexis Barroso OD Unavailable [phone] Kristopher Hopson RN Unavailable Reason for Visit * Reason Onset Date Comments Appointment Request 08/26/2024 Encounter Details Date Type Department Care Team (Late st Contact Info) Description 08/26/2024 Telephone [facility] Medical Group Primary Care at [address] [address] Servando Torre MD [address] [place] [address] [address] [place] [address] Appointment Request Social History Tobacco Use Types [...] on file Legal 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 Spoke to dtr, Aby (HIPAA). She wanted you to know pt had an inpatient stay. Offered CHRISTELLE, but she would like to defer PCP appt unless you felt it was necessary. Please advise. Thank you, Matthew Hopson RN -[facility] Weigher Production [phone] S ADVISOR documented in this encounter Plan of Treatment Not on file documented as of this encounter Visit Diagnoses Not on filedocumented in this encounter Care Teams Agricultural Equipment Mechanic Relationship Specialty Start Date End Date Servando Torre MD [address] [facility] [address] [place] [address] PCP - General Family Medicine 06/19/22 Mariela Denton MD [address] [place] [address] Referring Physician Gastroenterology 06/19/22 Lexis Barroso OD [address] [place] [address] Balling Machine Operator 09/19/22 Kristopher Hopson RN [address] [facility] [address] [place] [address] Weigher Production 08/25/24 documented as of this encounter
--- OUTSIDE RECORDS SUMMARY | 2024-09-13 20:06 | XMS_ITS | Encounter Summary ---
Author Organization [facility] Address [address] [place] [address] Care Team Providers Care Electronic Resources Librarian Name Role Phone Jared Abrams MD Primary Care Provider [phone] Servando Torre MD Primary Care Provider [phone] Encounter Details Date Type Department Care Team (Late st Contact Info) Description 09/26/2003 Abstract [facility] Clinics Conversion , Generic Conversion, [...] st Contact Info) Description 09/28/2024 2:30 PM NEONATOLOGIST Appointment [facility] [address] [place] [address] Josué Cook MD [address] [facility] 8 [place] [address] documented as of this encounter Visit Diagnoses Not on filedocumented in this encounter Care Teams Electronic Resources Librarian Relationship Specialty Start Date End Date Jared Abrams MD PCP - General 08/28/11 07/16/22 Servando Torre MD [address] [facility] [address] [place] [address] PCP - General FAMILY PRACTICE 07/17/22 documented as of this encounter
--- OUTSIDE RECORDS SUMMARY | 2024-09-13 20:06 | XMS_ITS | Encounter Summary ---
Author Organization [facility] Address [address] [place] [address] Phone Care Team Providers Care Assistant Professor Of Drama Name Role Phone Servando Torre MD Primary Care Provider [phone] Mariela Denton MD Unavailable [phone] Lexis Barroso OD Unavailable [phone] Kristopher Hopson RN Unavailable Encounter Details Date Type Department Care Team (Late st Contact Info) Description 08/31/2024 Telephone [facility] Gastroenterology [address] [facility] 12th [place] [address] [place] [address] Ayala Mobley RN Social History Tobacco Use Types Packs/Day [...] on file Legal Sex Female 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 No answer, LVM. 09/09- pt reports she is currently unable to schedule. Will call back after 2 pm. R OFFICER documented in this encounter Plan of Treatment Not on file documented as of this encounter Visit Diagnoses Not on filedocumented in this encounter Care Teams Assistant Professor Of Drama Relationship Specialty Start Date End Date Servando Torre MD [address] [facility] [address] [place] [address] PCP - General Family Medicine 06/19/22 Mariela Denton MD [address] [place] [address] Referring Physician Gastroenterology 06/19/22 Lexis Barroso OD [address] [place] [address] Underwriting Internship 09/19/22 Kristopher Hopson RN [address] [facility] [address] [place] [address] Reinforcing Steel Machine Operator 08/25/24 documented as of this encounter
--- OUTSIDE RECORDS SUMMARY | 2024-09-13 20:07 | XMS_ITS | Clinical Summary ---
Author Organization [facility] Address [address] [place] [address] Care Team Providers Care Check Writing Machine Operator Name Role Phone Servando Torre MD Primary Care Provider Mariela Denton MD Unavailable [phone] Lexis Barroso OD Unavailable [phone] Kristopher Hopson RN Unavailable [phone] Allergies Active Allergy Reactions Criticality Noted Date [...] mouth daily 90 tablet 3 08/27/19 24 Active calcium citrate-vitamin D3 (Citracal + D Maximum) 315 mg-6.25 mcg (250 unit) per tablet Take 1 tablet by mouth daily 90 tablet 3 08/27/19 24 Active mesalamine (APRISO) 0.375 gram 24 hr [...] for 5 doses 5 tablet 08/23/19 25 Active brivaracetam (Briviact) 50 mg tablet Take [...] epilepticus 03/17/2023 At risk for falls 03/13/2023 [facility] (current) use of oral hypoglycemic fuentes gs [...] 05/29 Assessment & Plan (07/05/2024 3:20 PM MUNICIPAL ENGINEER): A(n) yearly Medicare Annual Wellness Visit [...] months Assessment & Plan (06/26/2023 2:02 PM MUNICIPAL ENGINEER): A(n) yearly Medicare Annual Wellness Visit [...] months Assessment & Plan (06/23/2022 3:06 PM MUNICIPAL ENGINEER): A(n) initial Medicare Annual Wellness Visit [...] (06/19/2022): Added automatically from request for surgery [id number] Ear ringing 03/03/2013 Asymmetrical sensorineural hearing loss 03/03/20 13 Stress fracture 07/07/2012 Arthralgia of hip 02/06/2011 Resolved Problems Problem Noted Date Diagnosed Date Resolved Date Hospital discharge follow-up 06/11/2023 08/07/2023 Assessment & Plan (06/11/2023 1:42 PM MUNICIPAL ENGINEER): I have reviewed the hospital record, medications, and relevant testing from Radha Sauceda Allen's recent admission. Complications and discharge plan [...] Encounters Date Type Department Care Team Description 09/13/2024 6:00 PM MUNICIPAL ENGINEER Office Visit [facility] Convenient Care at [address] [phone] Pricilla Olguin NP Urinary incontinence, unspecified type (Primary Dx); Bradycardia; Confusion 09/02/2024 1:15 PM MUNICIPAL ENGINEER Office Visit [facility] Orthopedic and Sports Medicine [address] [place] [phone] Riri Gonzalez PA 08/31/2024 Telephone [facility] 12th [place] [address] [place] [phone] Ayala Mobley RN 08/26/2024 Telephone [facility] Primary Care at [address] [phone] Servando Torre MD Appointment Request 08/26/2024 Orders Only [facility] Medical [facility] Primary Care at [address] [phone] ProviderSilvestre MD 08/24/2024 Telephone [facility] Epilepsy [address] [facility] 6th [place] [address] [place] [address] Adria Burleson MD Medication Problem; Med Management; Seizures; Referral Request 08/17/2024 8:26 AM MUNICIPAL ENGINEER - 08/23/2024 5:10 PM MUNICIPAL ENGINEER Hospital Encounter [facility] [address] [place] [address] Adria Burleson MD Discharge Disposition: Discharge to home or self care 08/17/2024 8:00 AM MUNICIPAL ENGINEER Ancillary Procedure [facility] [address] [place] [address] Rene De La O MT Seizure (HCC) 08/16/2024 Orders Only [facility] Medical Group Primary Care at [address] [phone] Silvestre Ahn MD 08/13/2024 Telephone [facility] [address] [place] [address] Karen Lee 08/12/2024 Telephone [facility] Epilepsy [address] [facility] 6th [place] [address] [place] [phone] Ute Miller MD 08/12/2024 Orders Only [facility] Medical Group Primary Care at [address] [phone] ProviderSilvestre MD 08/03/2024 4:00 PM MUNICIPAL ENGINEER - 08/03/2024 11:59 PM MUNICIPAL ENGINEER Hospital Encounter [address] [address] Frequent falls; Syncope, unspecified syncope type; Memory impairment; Essential (primary) hypertension Discharge Disposition: Discharge to home or self care 08/03/2024 8:45 AM MUNICIPAL ENGINEER Lab [facility] Medical Group Outpatient Lab at [address] [phone] 08/03/2024 8:00 AM MUNICIPAL ENGINEER Ancillary Procedure [facility] Medical Group Vascular and Vein Surgery at [address] [place] [phone] Carotid stenosis, asymptomatic, bilateral 07/28/2024 Orders Only [facility] [place] [address] [facility] 6th [address] [place] [phone] Chelsie Francisco NP 07/24/2024 Orders Only [address] 6th [address] [place] [address] Chelsie Francisco NP Frequent falls (Primary Dx); Syncope, unspecified syncope type; Memory impairment; Essential (primary) hypertension; Sleep walking 07/22/2024 7:00 PM MUNICIPAL ENGINEER Office Visit [facility] Con[facility]ient Care at [address] [phone] Lexis Chaves PA Encounter for staple removal (Primary Dx) 07/14/2024 Telephone [facility] Primary Care at [address] [phone] Results 07/12/2024 Orders Only [address] [place] [address] Chelsie Francisco NP 07/12/2024 Orders Only [facility] Primary Care at [address] [phone] Marcell Rucker MD 07/09/2024 Telephone [facility] [address] [facility] 6th [place] [phone] Adria Burleson MD Medication Problem; Request For Order(s) 07/08/2024 3:15 PM MUNICIPAL ENGINEER Office Visit [address] 6th [address] [place] [address] Chelsie Francisco NP Somnolence, daytime (Primary Dx); Memory impairment; Frequent falls; Anxiety 07/05/2024 3:00 PM MUNICIPAL ENGINEER Office Visit [facility] Primary Care at [address] [phone] Servando Torre MD Encounter for Medicare annual wellness exam (Primary Dx); Mixed diabetic hyperlipidemia associated with type 2 diabetes mellitus (HCC); Hypertension associated with diabetes (HCC); Gastroesophageal reflux disease without esophagitis; At risk for falls; Carotid stenosis, asymptomatic, bilateral 07/02/2024 10:20 AM MUNICIPAL ENGINEER - 07/02/2024 11:59 PM MUNICIPAL ENGINEER Hospital Encounter [phone] [place] [address] Hypertension associated with diabetes (HCC); Seizure (HCC); Weakness generalized Discharge Disposition: Discharge to home or self care 07/02/2024 10:15 AM MUNICIPAL ENGINEER Lab [facility] Medical Group Outpatient Lab at [address] [phone] Encounter for Medicare annual wellness exam (Primary Dx) 06/29/2024 Orders Only [facility] [address] [facility] 6th [address] [place] [address] Kimberly Nicolas MD Weakness generalized (Primary Dx) 06/18/2024 3:00 PM MUNICIPAL ENGINEER Ancillary Procedure [facility] Imaging at [address] [phone] Accidental fall, subsequent encounter 06/18/2024 2:55 PM MUNICIPAL ENGINEER Ancillary Procedure [facility] Imaging at [address] [phone] Accidental fall, subsequent encounter 06/18/2024 2:30 PM MUNICIPAL ENGINEER Office Visit [facility] Con[facility]ient Care at [address] [phone] Pricilla Olguin NP Accidental fall, subsequent encounter (Primary Dx) from Last 3 Months Immunizations Immunization Administration Dates Next Due Influenza, Quadrivalent, Hig [...] on file Legal Sex Female 9:30 AM MUNICIPAL ENGINEER Gender Identity Female 04/05/2022 6:17 PM CDT Sexual Orientation Straight 04/05/2022 6: 17 PM CDT Obstetrics History Last Filed Vital Signs Vital Sign Reading Time Taken Comments Blood Pressure 138/62 09/13/2024 6:27 PM MUNICIPAL ENGINEER Pulse 39 09/13/2024 6:47 PM MUNICIPAL ENGINEER Temperature 36.9 C (98.5 F) 09/13/2024 6:27 PM MUNICIPAL ENGINEER Respiratory Rate 24 09/13/2024 6:27 PM MUNICIPAL ENGINEER Oxygen Saturation 91% 09/13/2024 6:47 PM MUNICIPAL ENGINEER Inhaled Oxygen Concentration - - Weight 63.5 kg (140 lb) 09/13/2024 6:27 PM MUNICIPAL ENGINEER Height 157.5 cm (5' 2 ) 09/02/2024 1:14 PM MUNICIPAL ENGINEER Body Mass Index 25.61 09/02/2024 1:14 PM MUNICIPAL ENGINEER Plan of Treatment Health Maintenance Due [...] POCT URINALYSIS DIPSTICK Routine 09/13/2024 6:32 PM MUNICIPAL ENGINEER Urinary incontinence, unspecified type BRAIN COMPUTED TOMOGRAPHY (CT) Schedule Routine, Read Routine (OP Routine) 08/25/2024 12:30 PM MUNICIPAL ENGINEER CONTINUOUS VIDEO EEG Routine 08/23/2024 2:39 PM MUNICIPAL ENGINEER Seizure (HCC) POCT GLUCOSE DEVICE Routine 08/22/2024 6 :24 AM MUNICIPAL ENGINEER POCT GLUCOSE DEVICE Routine 08/21/2024 6 :06 AM MUNICIPAL ENGINEER POCT GLUCOSE DEVICE Routine 08/18/2024 5 :09 PM MUNICIPAL ENGINEER POCT GLUCOSE DEVICE Routine 08/18/2024 1 1:18 AM MUNICIPAL ENGINEER POCT GLUCOSE DEVICE Routine 08/18/2024 8 :02 AM MUNICIPAL ENGINEER BRAIN, BRAIN STEM MAGNETIC RESONANCE (MR) IMAGING Schedule Routine, Read Routine (OP Routine) 08/12/2024 1:35 PM MUNICIPAL ENGINEER XR CHEST 1 VIEW Schedule Routine, Read Routine (OP Routine) 08/11/2024 9:53 AM MUNICIPAL ENGINEER US CAROTIDS DUPLEX BILATERAL Schedule Routine, Read Routine (OP Routine) 08/03/2024 8:46 AM MUNICIPAL ENGINEER Carotid stenosis, asymptomatic, bilateral METHYLMALONIC ACID, SERUM Routine 08/03/2024 8:30 AM MUNICIPAL ENGINEER Frequent falls Syncope, unspecified syncope type Memory impairment HOMOCYSTEINE Routine 08/03/2024 8:30 AM MUNICIPAL ENGINEER Frequent falls Syncope, unspecified syncope type Memory impairment Essential (primary) hypertension VITAMIN B12 Routine 08/03/2024 8:30 AM MUNICIPAL ENGINEER Frequent falls Syncope, unspecified syncope type Memory impairment HEAD COMPUTED TOMOGRAPHY (CT) WITHOUT CONTRAST Schedule Routine, Read Routine (OP Routine) 07/11/2024 9:14 AM MUNICIPAL ENGINEER URINALYSIS, MICROSCOPIC ONLY Routine 07/02/2024 10:20 AM MUNICIPAL ENGINEER Weakness generalized EGFR Routine 07/02/2024 10:20 AM MUNICIPAL ENGINEER Weakness generalized DIFFERENTIAL AUTO Routine 07/02/2024 10: 20 AM MUNICIPAL ENGINEER Weakness generalized CBC WITH AUTO DIFFERENTIAL Routine 07/02/2024 10:20 AM MUNICIPAL ENGINEER Weakness generalized COMPREHENSIVE METABOLIC PANEL Routine 07/02/2024 10:20 AM MUNICIPAL ENGINEER Weakness generalized ALBUMIN CREATININE RATIO, URINE Routine 07/02/2024 10:20 AM MUNICIPAL ENGINEER Hypertension associated with diabetes (HCC) HEMOGLOBIN A1C Routine 07/02/2024 10:20 AM MUNICIPAL ENGINEER Hypertension associated with diabetes (HCC) LAMOTRIGINE LEVEL Routine 07/02/2024 10: 20 AM MUNICIPAL ENGINEER Seizure (HCC) LIPID PANEL Routine 07/02/2024 10:20 AM MUNICIPAL ENGINEER Hypertension associated with diabetes (HCC) URINALYSIS AND REFLEX TO MICROSCOPIC AND CULTURE Routine 07/02/2024 10:20 AM MUNICIPAL ENGINEER Weakness generalized XR SPINE LUMBAR 2 OR 3 VIEWS Schedule SHIRA, Read SHIRA (Appt Today, Awaiting Results) 06/18/2024 3:04 PM MUNICIPAL ENGINEER Accidental fall, subsequent encounter XR HIP LEFT 2 OR 3 VIEWS Schedule SHIRA, Read SHIRA (Appt Today, Awaiting Results) 06/18/2024 3:04 PM MUNICIPAL ENGINEER Accidental fall, subsequent encounter DIABETIC EYE EXAM Routine 06/25/2023 DEXA AXIAL SKELETON BONE DENSITY 1 OR MORE SITES Schedule Routine, Read Routine (OP Routine) 12/12/2022 2:33 PM CDT Screening for osteoporosis Asymptomatic menopausal state from Last 3 Months or Most Recently Relevant to Health Maintenance Results * (ABNORMAL) POCT urinalysis dipstick (09/13/2024 6:32 PM MUNICIPAL ENGINEER) Color, Urine, POC Light Yellow Clarity, ur, POC Cloudy(A) Clear Glucose, ur, POC Negative Negative MG/DL Bilirubin, ur, POC Negative Negative, Small, Moderate, Large Ketones, ur, POC Negative Negative Specific [place], POC 1.005 1.003 - 1.030 Blood, ur, POC Moderate(A) Negative pH, ur, POC 6.5 5.0 - 8.0 Protein, ur, POC Negative Negative Urobilinogen, urine, POC 0.2 0.2 - 1.0 mg/dL Nitrite, ur, POC Negative Negative Leukocytes, ur, POC Trace(A) Negative Lot Number [id number] Urine 09/13/2024 6:32 PM MUNICIPAL ENGINEER Pricilla Olguin NP POINT OF CARE TEST ORDERABLES F inal Result * BRAIN COMPUTED TOMOGRAPHY (CT) (08/25/2024 12:30 PM MUNICIPAL ENGINEER) Anatomical Region Laterality Modality N/A Computed Tomogra phy Historical Provider MD [facility] CT PROCEDURES Final R esult * Continuous Video EEG -[facility] (08/23/2024 2:39 PM MUNICIPAL ENGINEER) Anatomical Region Laterality Modality EEG Narrative 08/25/2024 7:12 PM MUNICIPAL ENGINEER Video-EEG Report Patient Name: Radha Allen [facility] Record Number (MRN): [id number] [facility] Record: [id number] Date of (): 1945 EEG Date: 08/17/2024 Ordering Provider: Adria Burleson MD CC: Servando Torre Start Time: 08/17/2024 10:41:00 AM End Time: 08/23/2024 1:37:15 PM Introduction: Ms. Allen is a 79 y.o. female with a history of focal epilepsy who has experienced an increase in frequency of seizure like events characterized by moaning, unresponsiveness, and bilateral motor activity. EEG was performed to evaluate for seizures. This is a report of continuous video-EEG monitoring. High definition digital video and digital EEG were recorded continuously with a Yovia EEG acquisition system. This was a 32 channel EEG with additional anterior temporal electrodes. Electrodes were placed with collodion following the 10/20 International System. The patient was monitored and observed continuously by technical personnel. Digital seizure and spike detection were utilized during the recording. EEG Description: The awake background included a 10 Hz posterior rhythm which attenuated with eye opening and activity. There was occasional 2-4 Hz irregular theta range activity over the right frontal region. During drowsiness, identified by ocular signs and alpha attenuation, there was intermittent, diffuse, asynchronous theta activity admixed with 2-4 Hz polymorphic frontotemporal delta activity. As the record progressed, stage II sleep was identified by vertex waves, sleep spindles and K-complexes. During the recording, there were changes consistent with light and deep sleep stages. Hyperventilation was not performed. Photic strobe stimulation elicited no abnormalities. There were occasional sharp and slow wave epileptiform discharges over the right anterior quadrant, maximal over the right frontotemporal region (Fp2, F8 > T8). The EKG showed a normal rate and rhythm. Daily Video-EEG Description: Epoch 1: 08/17/2024 10:41:00 AM to 08/18/2024 10:41:00 AM The interictal EEG was as described above. One non-habitual clinical event was captured during this epoch. Event #1 occurred at 5:20:32 AM. - Clinically, the patient arose from sleep, looked around, and adjusted in bed. She then turned to the left and attempted to get out of bed. Staff became aware of the arousal and activated a code teal . During formal testing, the patient was able to answer questions and follow commands. She struggled to recall her location but was able to state hospital upon repeat questioning. The patient also stated I didn't even realize that something was going on when staff entered the room. - Electrographically, there was no change to the EEG background during this event. Epoch 2: 08/18/2024 10:41:00 AM to 08/19/2024 10:41:00 AM The interictal EEG was as described above. No clinical or electrographic events were captured during this epoch. Epoch 3: 08/19/2024 10:41:00 AM to 08/20/2024 10:41:00 AM One electrographic seizure was captured during this epoch. Seizure #1 occurred on 08/20 at 5:25:48 AM and ended at 5:27:03 AM. - Clinically, no signs or symptoms were appreciated. The patient remained asleep. - Electrographically, seizure occurred out of N2 sleep, with earliest EEG onset was characterized by the emergence of sharply contoured alpha range frequencies over the left subtemporal and temporal chains which increased in frequency to beta range activity. Unequivocal EEG onset was characterized by rhythmic 2-3 Hz delta range activity maximal over the right anterior quadrant, which evolved in frequency to rhythmic 4 Hz delta range activity in the same chains (5:26:13) and eventually in morphology inro sharp and slow wave activity in the same leads. The interictal EEG was as described above. Epoch 4: 08/20/2024 10:41:00 AM to 08/21/2024 10:41:00 AM One event of disorientation and incoherence was captured during this epoch. One electroclinical seizure was captured during this epoch. Four electrographic seizures were captured during this epoch. Seizure #2 (electroclinical) occurred on 08/20 at 2:48:07 PM and ended at 2:53:13 PM. Earliest EEG change occurred at 2:48:07 PM, unequivocal EEG change occurred at 1:48:48 PM, and first clinical sign became noticeable to the family at 2:49:51 PM. - Clinically, the patient was scrolling on her cell phone when she began to occasionally laugh. When the family asked if she was okay, she continued to occasionally laugh, vocalize mhhmm , and not regard the family or answer their questions. During formal code teal testing which was completed during the ictal phase, the patient was unable to answer questions, follow commands, or read. - Electrographically, EEO occurred out of a baseline awake background in the form of a sentinel sharp change maximal over T8>F10 followed by irregular 2-3 Hz sharply contoured delta range slowing (the latter not dissimilar to interictal findings). UEO was characterized by higher amplitude scharply contoured quasi rhythmic 3.5Hz delta in the right subtemporal chain, closely followed by the onset of a lower amplitude 2.5 Hz irregular delta in the temporal chain, with subsequent evolution in frequency into 6-7 Hz theta range activity in the aforementioned chains, with subsequent spread to the parasaggital and central chains and ongoing evolution in frequency and morphology over the right hemisphere. Seizure #3 (electrographic) occurred on 08/21 at 7:25:52 AM and ended at 7:27:09 AM. - Clinically, the patient was laying with eyes closed with no clear signs or symptoms appreciated on the video. - Electrographically, seizure onset was characterized by irregular delta range slowing in the right subtemporal chain which became rhythmic and more sharply contoured, with subsequent spread of rhythmic delta activity to the right temporal chain, then the right parasaggital chain and midline. Seizure #4 (electrographic) occurred on 08/21 at 8:20:18 AM and ended at 8:21:42 AM. - Clinically, the patient was laying with eyes closed with no clear signs or symptoms appreciated on the video. - Electrographically, it was similar to seizure #3. Seizure #5 (electrographic) occurred at 9:07:37 and ended at 9:08:36 AM. - Clinically no clear signs or symptoms appreciated on the video. - Electrographically, seizure onset was characterized by irregular delta range slowing in the right subtemporal chain which became rhythmic and more sharply contoured and evolved in frequency to a 5-6 Hz theta range activity, with subsequent spread to the right temporal chain, then the right parasaggital chain and midline. Seizure #6 (electrographic) occurred at 9:48:15 AM and ended at 9:49:02 AM. - Clinically, the patient was laying with eyes closed with no clear signs or symptoms appreciated on the video. Electrographically, seizure onset was obscured by myogenic artifact (the patient was eating at the te), with seizure evolution best seen over the right hemisphere, with pattern that was similar to seizure #5. Event #1 occurred on 08/21 at 8:05:57 AM. - Clinically the patient was awake and reading a book. When her family member asked her orientation questions she was not able to answer them accurately (e.g. what brought her to the hospital). Additionally, her expressive language was not coherent throughout the event. The interictal EEG was as described above. Epoch 5: 08/21/2024 10:41:00 AM to 08/22/2024 10:41:00 AM Four electroclinical, one likely electroclinical vs electrographic (sz #10), and one electrographic seizure (sz #12)were captured during this epoch. Seizure #7 occurred on 08/21 at 2:10:21 PM - 2:14:20 PM. - Clinically, the patient developed difficulties with spoken language. She then brought her right hand to her chest, repeatedly stated nope nope nope , and may have had emesis (the latter out of camera view). She then began moaning and crying. Throughout the seizure, she remained unable to respond to her family. The family stated that she was having a typical seizure. During formal code teal testing, she was unable to answer questions or follow commands. Three minutes into the seizure she was able to produce some syllables however her speech remained unintelligible. - Electrographically, this seizure was similar to all prior seizures, with onset characterized by quasi rhythmic delta activity over the right anterior temporal region which became rhythmic and sharply contoured and propagated to the right temporal chain and the right parasaggital chain. Seizure #8 occurred on 08/21 at 2:50:18 PM - 2:52:14 PM. - Clinically, the patient stopped responding to the family and stared forward. She was unable to answer questions or follow commands. - Electrographically, this seizure was similar to all prior seizures. Seizure #9 occurred on 08/21 at 4:36:17 PM - 4:40:09 PM. - Clinically, the patient stopped responding to family and developed occasional laughter and unintelligible vocalizations. - Electrographically, this seizure was similar to all prior seizures. Seizure #10 occurred on 08/21 at 5:41:05 PM - 5:42:54 PM. - Clinically, the patient was seen eating and watching TV with her family. She was not speaking at this time and had intermittent giggling which may have represented a subtle clinical correlate. - Electrographically, this seizure was similar to all prior seizures. Seizure #11 occurred on 08/21 at 7:32:50 PM - 7:34:05 PM. - Clinically the patient was out of the camera view in the bathroom. There was concern that she was unable to speak or respond to family or staff. - Electrographically, this seizure was similar to all prior seizures. Seizure #12 occurred on 08/21 at 11:59:09 PM - 08/22 00:00:17 AM. - Clinically, the patient was interacting with the family though appeared confused and asking where all those people are which may consistent with her neurologic baseline. No clear signs or symptoms can be observed on the video or appreciated by the family. - Electrographically, this seizure was similar to all prior seizures. The interictal EEG was as described above. Epoch 6: 08/22/2024 10:41:00 AM to 08/23/2024 10:41:00 AM The interictal EEG was as described above. No clinical or electrographic events were captured during this epoch. Epoch 7: 08/23/2024 10:41:00 AM to 08/23/2024 1:37:15 PM The interictal EEG was as described above. No clinical or electrographic events were captured during this epoch. Interpretation: Five electroclinical, one likely electroclinical vs electrographic, and six electrographic seizures were captured during this EMU admission. Clinical manifestations of these seizures can be broadly described as 1) speech arrest, not answering questions or following commands, with a slow return to baseline, 2) giggling, unintelligible vocalizations, inability to answer questions or follow commands, 3) moaning, crying, and possible nausea/emesis. Electrographically, all seizures had a similar onset characterized by rhythmic sharply contoured delta activity in the right subtemporal and temporal chains with evolution and spread across the right hemisphere. The interictal EEG was abnormal due to: 1) occasional sharp and slow wave epileptiform discharges over the right anterior quadrant, maximal over the right anterior temporal region (F8 > T8) 2) occasional 2-4 Hz irregular theta range slowing over the right frontal or temporal region By signing this report, the attending Electroencephalographer certifies that he/she personally reviewed the electrodiagnostics study and has edited this report to fully conform with his/her intent. Signing Attending: Raj Cedillo MD Adria Diop MD NEUROLOGY OR DERABLES Final Result * POCT glucose (08/22/2024 6:24 AM MUNICIPAL ENGINEER) Glucose, POC 141 70 - 199 mg/dL Blood 08/22/2024 6:24 AM MUNICIPAL ENGINEER 08/22/2024 6:24 AM MUNICIPAL ENGINEER us Adria Diop MD LAB POCT ORD ERABLES - DEVICE Final Result Performing Organization Address [facility] de Phone Number [facility] [place] [address] * POCT glucose (08/21/2024 6:06 AM MUNICIPAL ENGINEER) Glucose, POC 126 70 - 199 mg/dL Blood 08/21/2024 6:06 AM MUNICIPAL ENGINEER 08/21/2024 6:06 AM MUNICIPAL ENGINEER Adria Diop MD LAB POCT ORD ERABLES - DEVICE Final Result Performing Organization Address [facility] de Phone Number [facility] Department [place] [address] * POCT glucose (08/18/2024 5:09 PM MUNICIPAL ENGINEER) Glucose, POC 99 70 - 199 mg/dL Blood 08/18/2024 5:09 PM MUNICIPAL ENGINEER 08/18/2024 5:09 PM MUNICIPAL ENGINEER Adria Diop MD LAB POCT ORD ERABLES - DEVICE Final Result Performing Organization Address [facility] Co de Phone Number [facility] [place] [address] * POCT glucose (08/18/2024 11:18 AM MUNICIPAL ENGINEER) Glucose, POC 178 70 - 199 mg/dL Blood 08/18/2024 11:1 8 AM MUNICIPAL ENGINEER 08/18/2024 11:18 AM MUNICIPAL ENGINEER Adria Diop MD LAB POCT ORD ERABLES - DEVICE Final Result Performing Organization Address [facility] Co de Phone Number [facility] [place] [address] * POCT glucose (08/18/2024 8:02 AM MUNICIPAL ENGINEER) Glucose, POC 130 70 - 199 mg/dL Blood 08/18/2024 8:02 AM MUNICIPAL ENGINEER 08/18/2024 8:02 AM MUNICIPAL ENGINEER Adria Diop MD LAB POCT ORD ERABLES - DEVICE Final Result Performing Organization Address [facility] de Phone Number [facility] Department [place] [address] * BRAIN, BRAIN STEM MAGNETIC RESONANCE (MR) IMAGING (08/12/2024 1:35 PM MUNICIPAL ENGINEER) Anatomical Region Laterality Modality N/A Magnetic Resonan ce Historical Provider IMG MRI PROCEDURES Final Result * XR Chest 1 View (08/11/2024 9:53 AM MUNICIPAL ENGINEER) Anatomical Region Laterality Modality Body, Chest N/A Radiographic Keyanna ging Historical Provider IMG XR PROCEDURES Final R esult * Vl US Carotids (08/03/2024 8:46 AM MUNICIPAL ENGINEER) Anatomical Region Laterality Modality Vascular Bilateral Ultrasound 08/03/2024 8:26 AM MUNICIPAL ENGINEER Narrative 08/03/2024 9:47 AM MUNICIPAL ENGINEER [facility] [address] [place] [address] Carotid Duplex Ultrasound Report Patient Name: RADHA ALLEN K : 1945 (79y 4m) Study Date: 08/03/2024 8:26:13 AM Gender: F Behavioral Health Professional: Location: [facility] Ref Provider: SERVANDO TORRE Quality: [...] left proximal ICA due to calcific shadowing. CONCLUSIONS: 1. The right internal carotid artery disease is consistent with a less than 50% stenosis. 2. The left internal carotid artery disease is consistent with a less than 50% stenosis. ATTESTATION: I have reviewed and interpreted the pertinent images and measurements of this study. I attest to the conclusions in the final report that is provided above. Electronically Signed By: Gino Correa MD [facility] 08/03/2024 9:46:05 AM MUNICIPAL ENGINEER Procedure Note Gino Correa MD - 08/03/2024 [facility] [address] [place] [place] [address] Carotid Duplex Ultrasound Report Patient Name: RADHA ALLEN K : 1945 (79y 4m) Study Date: 08/03/2024 8:26:13 AM Gender: F Behavioral Health Professional: Location: [facility] Ref Provider: SERVANDO TORRE Quality: Adequate Order [...] above. Electronically Signed By: Gino Correa MD [facility] 08/03/2024 9:46:05 AM MUNICIPAL ENGINEER us Servando Torre MD [facility] US PROCEDURES Final Res ult * Methylmalonic acid, serum (08/03/2024 8:30 AM MUNICIPAL ENGINEER) MMA 0.25 <=0.40 nmol/mL [facility] Comment: ADDITIONAL INFORMATION This test was developed and its performance characteristics determined by [facility] in a manner consistent with CLIA requirements. This test has not been cleared or approved by the U.S. Food and Drug Administration. Test Performed by: [address] [address] Political Science Research Assistant: Liu Davis Ph.D.; IA# [id number] Blood 08/03/2024 8:30 AM MUNICIPAL ENGINEER 08/03/2024 4:21 PM MUNICIPAL ENGINEER Chelsie Francisco CREDIT COLLECTIONS CLERK LAB BLOOD ORDERABLES F inal Result Performing Organization Address City/[facility] Co de Phone Number [facility] [address] Department [employer] [place], [place] [id number] [facility] ref [facility] * Homocysteine (08/03/2024 8:30 AM MUNICIPAL ENGINEER) Homocysteine 14.0 0.0 - 15.0 mcmol/L Comment:Testing performed by : [facility], [address] [place]., [address] Blood 08/03/2024 8:30 AM MUNICIPAL ENGINEER 08/04/2024 10:21 AM MUNICIPAL ENGINEER Chelsie Francisco CREDIT COLLECTIONS CLERK LAB BLOOD ORDERABLES F inal Result Performing Organization Address [facility] Co de Phone Number [facility] TIFF [address] Department [employer] [place], [place] [phone] * Vitamin B12 (08/03/2024 8:30 AM MUNICIPAL ENGINEER) Vitamin B12 350 230 - 1,250 pg/mL Blood 08/03/2024 8:30 AM MUNICIPAL ENGINEER 08/03/2024 4:21 PM MUNICIPAL ENGINEER Chelsie Francisco CREDIT COLLECTIONS CLERK LAB BLOOD ORDERABLES F inal Result Performing Organization Address City/[facility]/ZIP Co de Phone Number [facility] [address] Department [employer] [place], [place] [phone] * HEAD COMPUTED TOMOGRAPHY (CT) WITHOUT CONTRAST (07/11/2024 9:14 AM MUNICIPAL ENGINEER) Anatomical Region Laterality Modality N/A Computed Tomogra phy Marcell Rucker MD IMG CT PROCEDURES Final Result * eGFR (07/02/2024 10:20 AM MUNICIPAL ENGINEER) eGFR 66 >=60 mL/min/1. 73 m2 Comment: Interpretive Data Reference Interval Normal >/= [...] reviewed 2021. Blood 07/02/2024 10:2 0 AM MUNICIPAL ENGINEER 07/02/2024 5:35 PM MUNICIPAL ENGINEER us Kimberly Nicolas MD LAB BLOOD ORDERABLES Final Resu lt [facility] [address] Department of Laboratories [place], [place] [phone] * Differential, auto (07/02/2024 10:20 AM MUNICIPAL ENGINEER) Neutrophil abs 5.1 1.5 - 6.5 K/cumm Imm gran abs 0.0 0.0 - 0.1 K/cumm [facility] Lymphocyte abs 1.4 0.8 - 3.3 K/cumm [facility] Monocyte abs 0.7 0.2 - 0.8 K/cumm [facility] Eosinophil abs 0.3 0.0 - 0.5 K/cumm [facility] Basophil abs 0.0 0.0 - 0.1 K/cumm [facility] Neutrophil pct 68.0 % [facility] Comment: Interpretive Data Percent cell count [...] on 2017. Blood 07/02/2024 10:2 0 AM MUNICIPAL ENGINEER 07/02/2024 5:00 PM MUNICIPAL ENGINEER us Kimberly Nicolas MD LAB BLOOD ORDERABLES Final Resu lt [facility] [address] [place] [address] * (ABNORMAL) Urinalysis reflex to microscopic and culture Urine, clean voided (07/02/2024 10:20 AM MUNICIPAL ENGINEER) Color, ur Yellow Yellow Clarity, ur Clear Clear [facility] Specific gravity, ur 1.012 1.003 - 1.030 [facility] pH, urine 6.5 [facility] Comment: Interpretive Data U rine pH is affected by diet, medications, systemic acid-base disturbances, and renal tubular function. pH may affect urinary stone formation. For example, urine pH below 6.0 may help reduce the tendency for calcium phosphate stones and pH greater than 6.0 may reduce the tendency for uric acid stone formation. Source: [facility] [employer] Current Interpretive Data was last revised on [...] Reflex to microscopic UA will be performed. [facility] Urine, clean voided 07/02/2024 10:20 AM MUNICIPAL ENGINEER 07/02/2024 5:00 PM MUNICIPAL ENGINEER us Kimberly Nicolas MD LAB MICROBIOLOGY - [facility] MIA LEARY Final Result [facility] [address] Department [place] [address] * (ABNORMAL) CBC with auto differential (07/02/2024 10:20 AM MUNICIPAL ENGINEER) WBC 7.4 3.8 - 9.9 K/cumm Hgb 13.3 11.9 - 15.5 g/dL [facility] Hct 44.2 35.6 - 45.5 % [facility] Plt 296 150 - 400 K/cumm [facility] MPV 9.4 9.1 - 12.3 fL [facility] RBC 4.79 3.90 - 5.20 M/cumm [facility] MCV 92.3 81.3 - 96.4 fL [facility] MCH 27.8 27.1 - 33.3 pg [facility] MCHC 30.1(L) 32.3 - 35.7 g/dL [facility] RDW CV 13.0 11.1 - 14.9 % [facility] RDW SD 43.8 35.7 - 48.1 fL [facility] NRBC abs 0.00 0.00 - 0.01 K/cumm [facility] Blood 07/02/2024 10:2 0 AM MUNICIPAL ENGINEER 07/02/2024 5:00 PM MUNICIPAL ENGINEER Kimberly Nicolas MD LAB BLOOD ORDERABLES Final Resu lt Performing Organization Address [facility] Co de Phone Number [facility] MATTHEW [address] [facility] [place] [address] * (ABNORMAL) Albumin Creatinine Ratio, Urine (07/02/2024 10:20 AM MUNICIPAL ENGINEER) Albumin Ur 45.5 mg/L Comment: Interpretive Data No reference range established. Current interpretive data was last revised 2018. Creatinine Ur 73.7 mg/dL [facility] Comment: Interpretive Data No reference range established. Current interpretive data was last revised 2018. Albumin Creatinine Ratio, Ur 62(H) 1 - 29 mg/g [facility] Urine 07/02/2024 10:2 0 AM MUNICIPAL ENGINEER 07/02/2024 5:00 PM MUNICIPAL ENGINEER Servando Torre MD LAB URINE ORDERABLES Final Result Performing Organization Address [facility] Co az Phone Number [facility] MAT[facility] [address] [facility] [place] [address] * Lamotrigine level (07/02/2024 10:20 AM MUNICIPAL ENGINEER) Lamotrigine 9.6 3.0 - 15.0 mcg/mL [facility] ref [facility] Comment: ADDITIONAL INFORMATION This test was developed and its performance characteristics determined by [facility] in a manner consistent with CLIA requirements. This test has not been cleared or approved by the U.S. Food and Drug Administration. Test Performed by: [facility] Laboratories - [address] [address] Political Science Research Assistant: Liu Davis Ph.D.; CLIA# [id number] Blood 07/02/2024 10:2 0 AM MUNICIPAL ENGINEER 07/02/2024 5:00 PM MUNICIPAL ENGINEER Result [facility] Servando Torre MD LAB BLOOD ORDERABLES Final Result Performing Organization Address [facility] de Phone Number [facility] [address] [place] [address] [facility] ref [facility] * (ABNORMAL) Urinalysis, microscopic only (07/02/2024 10:20 AM MUNICIPAL ENGINEER) WBC, ur 6-10(A) 0 - 5 /HPF RBC, ur 3-5(A) 0 - 2 /HPF [facility] Epithelial cells, squamous, ur 1-5 0 - 5 /HPF [facility] Mucous, ur Present(A) [facility] Culture Reflex Comment Reflex conditions for urine culture (WBC >10) not met. [facility] Urine, clean voided 07/02/2024 10:20 AM MUNICIPAL ENGINEER 07/02/2024 5:00 PM MUNICIPAL ENGINEER Kimberly Nicolas MD LAB URINE ORDERABLES Final Resu lt Performing Organization Address [facility] Phone Number [facility] [address] [place] [address] * (ABNORMAL) Hemoglobin A1c (07/02/2024 10:20 AM MUNICIPAL ENGINEER) Hgb A1C 6.4(H) 4.0 - 5.6 % Estimated Average Glucose 137 mg/dL [facility] Comment: The ADA recommends reporting an estimated Average Glucose (eAG) with all Hemoglobin A1c results using the equation derived from a study of 507 normal and diabetic adults. Minority populations were underrepresented and children were not included. (Diabetes Care 31:8729-7077, 2008). The eAG is not equivalent to a fasting glucose. Blood 07/02/2024 10:2 0 AM MUNICIPAL ENGINEER 07/02/2024 5:00 PM MUNICIPAL ENGINEER Servando oTrre MD LAB BLOOD ORDERABLES Final Result Performing Organization Address [facility]/State/ZIP Co de Phone Number [facility] MATTHE[facility] [address] [facility] [place] [address] * (ABNORMAL) Lipid panel (07/02/2024 10:20 AM MUNICIPAL ENGINEER) Cholesterol 190 30 - 199 mg/dL [...] revised on 2018. Triglycerides 170(H) <=149 mg/dL [facility] Comment: Interpretive Data Ages < or [...] Borderline high: 130-159 mg/dL High: >160 mg/dL Calculated using the Jayy LDL-C estimating [...] [facility] MAT[facility] Blood 07/02/2024 10:2 0 AM MUNICIPAL ENGINEER 07/02/2024 5:00 PM MUNICIPAL ENGINEER us Servando Torre MD LAB BLOOD ORDERABLES Final Result [facility] [address] [place] [address] * (ABNORMAL) Comprehensive metabolic panel (07/02/2024 10:20 AM MUNICIPAL ENGINEER) Sodium 141 135 - 145 mmol/L [...] [facility] CH Blood 07/02/2024 10:2 0 AM MUNICIPAL ENGINEER 07/02/2024 5:00 PM MUNICIPAL ENGINEER us Kimberly Nicolas MD LAB BLOOD ORDERABLES Final Resu lt [facility] [address] [place] [address] * XR Spine Lumbar 2 or 3 Views (06/18/2024 3:04 PM MUNICIPAL ENGINEER) Anatomical Region Laterality Modality Spine N/A Digital Radiogra phy 06/18/2024 5:05 PM MUNICIPAL ENGINEER Narrative 06/18/2024 5:13 PM MUNICIPAL ENGINEER EXAM DESCRIPTION: XR HIP LEFT 2 [...] is a left hip hemiarthroplasty. No periprosthetic fracture. Old avulsed superior marginally greater trochanter and/or heterotopic [...] no change from prior CT. There is ugir-bz-bhjtfgvt multilevel degenerative endplate change with no acute [...] fairly moderate disc space narrowing at T10-11. Findings favor an older fracture, [...] signed by Teofilo ZAFAR T: Report ID: [id number] Reading Location: [id number] Procedure Note Teofilo Rand MD - 06/18/2024 [...] no change from prior CT. There is xuwa-yk-kyfmfxqr multilevel degenerative endplate change with no acute [...] Teofilo Rand M.D. MJ T: Report ID: [id number] Reading Location: [place] [address] Pricilla Olguin NP IMG XR PROCEDURES Final Result * XR Hip Left 2+ Vw (06/18/2024 3:04 PM MUNICIPAL ENGINEER) Anatomical Region Laterality Modality Lower Extremities, Hip, Pelvis Left D igital Radiography 06/18/2024 5:05 PM MUNICIPAL ENGINEER Narrative 06/18/2024 5:13 PM MUNICIPAL ENGINEER EXAM DESCRIPTION: XR HIP LEFT 2 [...] is a left hip hemiarthroplasty. No periprosthetic fracture. Old avulsed superior marginally greater trochanter and/or heterotopic [...] no change from prior CT. There is xhhr-lp-azoggfwk multilevel degenerative endplate change with no acute [...] fairly moderate disc space narrowing at T10-11. Findings favor an older fracture, [...] 5:13 PM - Electronically signed by Teofilo Melchor.D. MJ T: Report ID: [id number] Reading Location: [id number] Procedure Note Teofilo Rand MD - 06/18/2024 [...] no change from prior CT. There is erzt-xu-cfxkorgi multilevel degenerative endplate change with no acute [...] Teofilo Rand M.D. MJ T: Report ID: [id number] Reading Location: [place] [address] Pricilla Olguin NP IMG XR PROCEDURES Final [...] Bone mineral density was performed on a [employer] Discovery Densitometer. Based on machine cross-calibration and precision studies [...] bone mineral density scan were prepared by Mayh Salcedo) LORRIE who is accredited by the International Society of Clinical Densitometry. The overall patient assessment and scan interpretation were performed by Josep Mathew MD who is certified by the International Society of Clinical Densitometry. [id number] Servando Torre MD IMG DXA PROCEDURES Final Re sult from Last 3 Months or Most Recently Relevant to Health Maintenance Insurance MEDICARE [facility] MEDICARE SUPPLEMENT MEDICARE [facility] MEDICARE SUPPLEMENT MEDICARE [facility] MEDICARE [facility] Advance Directives For more information, please contact: [phone] * Full Code (Latest Code Status on [...] 9:30 AM 11/29/2022 3:28 PM Care Teams Check Writing Machine Operator Relationship Specialty Start Date End Date Servando Torre MD [address] [facility] [address] [place] [address] PCP - General Family Medicine 06/19/22 Mariela Denton MD [address] [place] [address] Referring Physician Gastroenterology 06/19/22 Lexis Barroso OD [address] [address] Plant Clerk 09/19/22 Kristopher Hopson, ELMO [address] [place] [address] [address] [place] [address] Online Advertising Analyst 08/25/24
--- OUTSIDE RECORDS SUMMARY | 2024-09-13 20:07 | XMS_ITS | Referral Summary ---
Author Organization [facility] Address [address] [place] [phone] Care Team Providers Care Lead Pharmacy Technician Name Role Phone Servando Torre MD Primary Care Provider Mariela Denton MD Unavailable [phone] Lexis Barroso OD Unavailable [phone] Kristopher Hopson RN Unavailable Encounters Date Type Department Care Team Description 09/13/2024 6:00 PM SUPERVISOR ABATTOIR Office Visit [facility] at [address] [phone] Pricilla Olguin NP Urinary incontinence, unspecified type (Primary Dx); Bradycardia; Confusion 09/02/2024 1:15 PM SUPERVISOR ABATTOIR Office Visit [facility] [address] [place] [phone] Riri Gonzalez PA 08/31/2024 Telephone [facility] Gastroenterology [facility] 12th [place] [address] [place] [address] Ayala Mobley RN 08/26/2024 Telephone [facility] at [address] [phone] Servando Torre MD Appointment Request 08/26/2024 Orders Only [facility] Medical [facility] Primary Care at [address] [phone] Silvestre Ahn MD 08/24/2024 Telephone [facility] Epilepsy [address] [facility] 6th [place] [phone] Adria Burleson MD Medication Problem; Med Management; Seizures; Referral Request 08/17/2024 8:26 AM SUPERVISOR ABATTOIR - 08/23/2024 5:10 PM SUPERVISOR ABATTOIR Hospital Encounter [address] [phone] Adria Burleson MD Discharge Disposition: Discharge to home or self care 08/17/2024 8:00 AM SUPERVISOR ABATTOIR Ancillary Procedure [address] [phone] Rene De La O MT Seizure ([facility]) 08/16/2024 Orders Only [facility] Medical [facility] Primary Care at [address] [phone] Silvestre Ahn MD 08/13/2024 Telephone [facility] Neurodiagnostics [address] [place] [phone] Karen Lee 08/12/2024 Telephone [facility] Epilepsy [address] [facility] 6th [place] [phone] Ute Miller MD 08/12/2024 Orders Only [facility] Primary Care at [address] [phone] Silvestre Ahn MD 08/03/2024 4:00 PM SUPERVISOR ABATTOIR - 08/03/2024 11:59 PM SUPERVISOR ABATTOIR Hospital Encounter [address] [address] Frequent falls; Syncope, unspecified syncope type; Memory impairment; Essential (primary) hypertension Discharge Disposition: Discharge to home or self care 08/03/2024 8:45 AM SUPERVISOR ABATTOIR Lab [facility] Outpatient Lab at [address] [phone] 08/03/2024 8:00 AM SUPERVISOR ABATTOIR Ancillary Procedure [facility] at [address] [place] [phone] Carotid stenosis, asymptomatic, bilateral 07/28/2024 Orders Only [facility] [address] [facility] 6th Floor [address] [place] [address] Chelsie Francisco NP 07/24/2024 Orders Only [facility] [address] [facility] 6th Floor [address] [place] [phone] Chelsie Francisco NP Frequent falls (Primary Dx); Syncope, unspecified syncope type; Memory impairment; Essential (primary) hypertension; Sleep walking 07/22/2024 7:00 PM SUPERVISOR ABATTOIR Office Visit [facility] at [address] [phone] Lexis Chaves PA Encounter for staple removal (Primary Dx) 07/14/2024 Telephone [facility] at [address] [phone] Servando Torre MD CT Results 07/12/2024 Orders Only [address] [place] [phone] Chelsie Francisco NP 07/12/2024 Orders Only [facility] at [address] [phone] Marcell Rucker MD 07/09/2024 Telephone [place] [phone] [facility] 6th [place] [address] [place] [address] Adria Burleson MD Medication Problem; Request For Order(s) 07/08/2024 3:15 PM SUPERVISOR ABATTOIR Office Visit [facility] [address] [facility] 6th Floor [address] [place] [phone] Chelsie Francisco NP Somnolence, daytime (Primary Dx); Memory impairment; Frequent falls; Anxiety 07/05/2024 3:00 PM SUPERVISOR ABATTOIR Office Visit [facility] Primary Care at [address] [phone] Servando Torre MD Encounter for Medicare annual wellness exam (Primary Dx); Mixed diabetic hyperlipidemia associated with type 2 diabetes mellitus (HCC); Hypertension associated with diabetes (HCC); Gastroesophageal reflux disease without esophagitis; At risk for falls; Carotid stenosis, asymptomatic, bilateral 07/02/2024 10:20 AM SUPERVISOR ABATTOIR - 07/02/2024 11:59 PM SUPERVISOR ABATTOIR Hospital Encounter [address] [address] Hypertension associated with diabetes ([facility]); Seizure (HCC); Weakness generalized Discharge Disposition: Discharge to home or self care 07/02/2024 10:15 AM SUPERVISOR ABATTOIR Lab [facility] at [address] [phone] Encounter for Medicare annual wellness exam (Primary Dx) 06/29/2024 Orders Only [facility] [address] [facility] 6th Floor [address] [place] [phone] Kimberly Nicolas MD Weakness generalized (Primary Dx) 06/18/2024 3:00 PM SUPERVISOR ABATTOIR Ancillary Procedure [facility] Medical [facility] Imaging at [address] [phone] Accidental fall, subsequent encounter 06/18/2024 2:55 PM SUPERVISOR ABATTOIR Ancillary Procedure [facility] Imaging at [address] [phone] Accidental fall, subsequent encounter 06/18/2024 2:30 PM SUPERVISOR ABATTOIR Office Visit [facility] at [address] [phone] Pricilla Olguin NP Accidental fall, subsequent encounter (Primary Dx) from Last 3 Months Allergies Active Allergy [...] monitor and strip 100 each 08/16/19 23 Active amLODIPine (NORVASC) 5 mg [...] [facility] ([facility] order in [facility] under 'Procedures' tab). 1 each 04/29/20 23 Active metFORMIN XR (GLUCOPHAGE XR) 750 mg 24 hr tablet Take 1 tablet (750 mg total) by mouth daily with breakfast 30 tablet 05/16/20 23 Active metoprolol tartrate (LOPRESSOR) 50 mg immediate release tablet Take 1 tablet (50 mg total) by mouth 2 (two) times a day 180 tablet 08/22/19 24 Active aspirin 81 mg enteric coated tablet Take 1 tablet (81 mg total) by mouth daily 90 tablet 3 08/27/19 24 Active calcium citrate-vitamin D3 (Citracal + D Maximum) 315 mg-6.25 mcg (250 unit) per tablet Take 1 tablet by mouth daily 90 tablet 08/27/19 24 Active mesalamine (APRISO) 0.375 gram [...] epilepticus 03/17/2023 At risk for falls 03/13/2023 buttermaker continuous churn (current) use of oral hypoglycemic fuentes gs [...] 05/29 Assessment & Plan (07/05/2024 3:20 PM SUPERVISOR ABATTOIR): A(n) yearly Medicare Annual Wellness Visit has [...] months Assessment & Plan (06/26/2023 2:02 PM SUPERVISOR ABATTOIR): A(n) yearly Medicare Annual Wellness Visit has [...] months Assessment & Plan (06/23/2022 3:06 PM SUPERVISOR ABATTOIR): A(n) initial Medicare Annual Wellness Visit has [...] (06/19/2022): Added automatically from request for surgery [id number] Ear ringing 03/03/2013 Asymmetrical sensorineural hearing loss 03/03/20 13 Stress fracture 07/07/2012 Arthralgia of hip 02/06/2011 Resolved Problems Problem Noted Date Diagnosed Date Resolved Date Hospital discharge follow-up 06/11/2023 08/07/2023 Assessment & Plan (06/11/2023 1:42 PM SUPERVISOR ABATTOIR): I have reviewed the hospital record, medications, [...] unspecified 09/19/2022 09/19/2023 Prediabetes 06/19/2022 12/19/2022 Immunizations Immunization Administration Dates Next Due Influenza, Quadrivalent, Hig h Dose, Preservative Free, Intrr 06/11/2023 Influenza, Trivalent, Adjuva nted, Intramuscular 05/05/2024 Influenza, Unspecified 03/27/2023(Deferr ed: Patient Refused),07/28/2022(Deferred: Patient Refused),05/06/2022,07/28/2021(Deferre d: Patient Refused) Z Plane Sars-Cov-2 Bivalent V accination (12+ YRS) 05/30/2022 [...] file Legal Sex Female 9:30 AM SUPERVISOR ABATTOIR Gender Identity Female 04/05/2022 6:17 PM CDT Sexual Orientation Straight 04/05/2022 6: 17 PM CDT Last Filed Vital Signs Vital Sign Reading Time Taken Comments Blood Pressure 138/62 09/13/2024 6:27 PM SUPERVISOR ABATTOIR Pulse 39 09/13/2024 6:47 PM SUPERVISOR ABATTOIR Temperature 36.9 C (98.5 F) 09/13/2024 6:27 PM SUPERVISOR ABATTOIR Respiratory Rate 24 09/13/2024 6:27 PM SUPERVISOR ABATTOIR Oxygen Saturation 91% 09/13/2024 6:47 PM SUPERVISOR ABATTOIR Inhaled Oxygen Concentration - - Weight 63.5 kg (140 lb) 09/13/2024 6:27 PM SUPERVISOR ABATTOIR Height 157.5 cm (5' 2 ) 09/02/2024 1:14 PM SUPERVISOR ABATTOIR Body Mass Index 25.61 09/02/2024 1:14 PM SUPERVISOR ABATTOIR Plan of Treatment Not on file Procedures Procedure Name Priority Date/Time Associated Diagnosis Comments POCT URINALYSIS DIPSTICK Routine 09/13/2024 6:32 PM SUPERVISOR ABATTOIR Urinary incontinence, unspecified type BRAIN COMPUTED TOMOGRAPHY (CT) Schedule Routine, Read Routine (OP Routine) 08/25/2024 12:30 PM SUPERVISOR ABATTOIR CONTINUOUS VIDEO EEG Routine 08/23/2024 2:39 PM SUPERVISOR ABATTOIR Seizure (HCC) POCT GLUCOSE DEVICE Routine 08/22/2024 6 :24 AM SUPERVISOR ABATTOIR POCT GLUCOSE DEVICE Routine 08/21/2024 6 :06 AM SUPERVISOR ABATTOIR POCT GLUCOSE DEVICE Routine 08/18/2024 5 :09 PM SUPERVISOR ABATTOIR POCT GLUCOSE DEVICE Routine 08/18/2024 1 1:18 AM SUPERVISOR ABATTOIR POCT GLUCOSE DEVICE Routine 08/18/2024 8 :02 AM SUPERVISOR ABATTOIR BRAIN, BRAIN STEM MAGNETIC RESONANCE (MR) IMAGING Schedule Routine, Read Routine (OP Routine) 08/12/2024 1:35 PM SUPERVISOR ABATTOIR XR CHEST 1 VIEW Schedule Routine, Read Routine (OP Routine) 08/11/2024 9:53 AM SUPERVISOR ABATTOIR US CAROTIDS DUPLEX BILATERAL Schedule Routine, Read Routine (OP Routine) 08/03/2024 8:46 AM SUPERVISOR ABATTOIR Carotid stenosis, asymptomatic, bilateral METHYLMALONIC ACID, SERUM Routine 08/03/2024 8:30 AM SUPERVISOR ABATTOIR Frequent falls Syncope, unspecified syncope type Memory impairment HOMOCYSTEINE Routine 08/03/2024 8:30 AM SUPERVISOR ABATTOIR Frequent falls Syncope, unspecified syncope type Memory impairment Essential (primary) hypertension VITAMIN B12 Routine 08/03/2024 8:30 AM SUPERVISOR ABATTOIR Frequent falls Syncope, unspecified syncope type Memory impairment HEAD COMPUTED TOMOGRAPHY (CT) WITHOUT CONTRAST Schedule Routine, Read Routine (OP Routine) 07/11/2024 9:14 AM SUPERVISOR ABATTOIR URINALYSIS, MICROSCOPIC ONLY Routine 07/02/2024 10:20 AM SUPERVISOR ABATTOIR Weakness generalized EGFR Routine 07/02/2024 10:20 AM SUPERVISOR ABATTOIR Weakness generalized DIFFERENTIAL AUTO Routine 07/02/2024 10: 20 AM SUPERVISOR ABATTOIR Weakness generalized CBC WITH AUTO DIFFERENTIAL Routine 07/02/2024 10:20 AM SUPERVISOR ABATTOIR Weakness generalized COMPREHENSIVE METABOLIC PANEL Routine 07/02/2024 10:20 AM SUPERVISOR ABATTOIR Weakness generalized ALBUMIN CREATININE RATIO, URINE Routine 07/02/2024 10:20 AM SUPERVISOR ABATTOIR Hypertension associated with diabetes (HCC) HEMOGLOBIN A1C Routine 07/02/2024 10:20 AM SUPERVISOR ABATTOIR Hypertension associated with diabetes (HCC) LAMOTRIGINE LEVEL Routine 07/02/2024 10: 20 AM SUPERVISOR ABATTOIR Seizure (HCC) LIPID PANEL Routine 07/02/2024 10:20 AM SUPERVISOR ABATTOIR Hypertension associated with diabetes (HCC) URINALYSIS AND REFLEX TO MICROSCOPIC AND CULTURE Routine 07/02/2024 10:20 AM SUPERVISOR ABATTOIR Weakness generalized XR SPINE LUMBAR 2 OR 3 VIEWS Schedule SHIRA, Read SHIRA (Appt Today, Awaiting Results) 06/18/2024 3:04 PM SUPERVISOR ABATTOIR Accidental fall, subsequent encounter XR HIP LEFT 2 OR 3 VIEWS Schedule SHIRA, Read SHIRA (Appt Today, Awaiting Results) 06/18/2024 3:04 PM SUPERVISOR ABATTOIR Accidental fall, subsequent encounter DIABETIC EYE EXAM Routine 06/25/2023 DEXA AXIAL SKELETON BONE DENSITY 1 OR MORE SITES Schedule Routine, Read Routine (OP Routine) 12/12/2022 2:33 PM CDT Screening for osteoporosis Asymptomatic menopausal state from Last 3 Months or Most Recently Relevant to Health Maintenance Results * (ABNORMAL) POCT urinalysis dipstick (09/13/2024 6:32 PM SUPERVISOR ABATTOIR) Color, Urine, POC Light Yellow Clarity, ur, POC Cloudy(A) Clear Glucose, ur, POC Negative Negative MG/DL Bilirubin, ur, POC Negative Negative, Small, Moderate, Large Ketones, ur, POC Negative Negative Specific [place], POC 1.005 1.003 - 1.030 Blood, ur, POC Moderate(A) Negative pH, ur, POC 6.5 5.0 - 8.0 Protein, ur, POC Negative Negative Urobilinogen, urine, POC 0.2 0.2 - 1.0 mg/dL Nitrite, ur, POC Negative Negative Leukocytes, ur, POC Trace(A) Negative Lot Number [id number] Urine 09/13/2024 6:32 PM SUPERVISOR ABATTOIR Pricilla Olguin NP POINT OF CARE TEST ORDERABLES F inal Result * BRAIN COMPUTED TOMOGRAPHY (CT) (08/25/2024 12:30 PM SUPERVISOR ABATTOIR) Anatomical Region Laterality Modality N/A Computed Tomogra phy Historical Provider IMG CT PROCEDURES Final R esult * Continuous Video EEG -[facility] (08/23/2024 2:39 PM SUPERVISOR ABATTOIR) Anatomical Region Laterality Modality EEG Narrative 08/25/2024 7:12 PM SUPERVISOR ABATTOIR Video-EEG Report Patient Name: Radha Allen [facility] Medical Record Number (MRN): [id number] [facility] Record: [id number] Date of (): 1945 EEG Date: 08/17/2024 [...] digital EEG were recorded continuously with a [employer] EEG acquisition system. This was a 32 [...] artifact (the patient was eating at the teim), with seizure evolution best seen over the [...] Result * POCT glucose (08/22/2024 6:24 AM SUPERVISOR ABATTOIR) Glucose, POC 141 70 - 199 mg/dL Blood 08/22/2024 6:24 AM SUPERVISOR ABATTOIR 08/22/2024 6:24 AM SUPERVISOR ABATTOIR Adria Diop MD LAB POCT ORD ERABLES - DEVICE Final Result [facility] [place] [address] * POCT glucose (08/21/2024 6:06 AM SUPERVISOR ABATTOIR) Glucose, POC 126 70 - 199 mg/dL Blood 08/21/2024 6:06 AM SUPERVISOR ABATTOIR 08/21/2024 6:06 AM SUPERVISOR ABATTOIR Adria Diop MD LAB POCT ORD ERABLES - DEVICE Final Result Performing Organization Address City/[facility] [place] [address] * POCT glucose (08/18/2024 5:09 PM SUPERVISOR ABATTOIR) Glucose, POC 99 70 - 199 mg/dL Blood 08/18/2024 5:09 PM SUPERVISOR ABATTOIR 08/18/2024 5:09 PM SUPERVISOR ABATTOIR Adria Diop MD LAB POCT ORD ERABLES - DEVICE Final Result Performing Organization Address [facility] [place] [address] * POCT glucose (08/18/2024 11:18 AM SUPERVISOR ABATTOIR) Glucose, POC 178 70 - 199 mg/dL Blood 08/18/2024 11:1 8 AM SUPERVISOR ABATTOIR 08/18/2024 11:18 AM SUPERVISOR ABATTOIR Adria Diop MD LAB POCT ORD ERABLES - DEVICE Final Result Performing Organization Address [facility] [place] [address] * POCT glucose (08/18/2024 8:02 AM SUPERVISOR ABATTOIR) Glucose, POC 130 70 - 199 mg/dL Blood 08/18/2024 8:02 AM SUPERVISOR ABATTOIR 08/18/2024 8:02 AM SUPERVISOR ABATTOIR Adria Diop MD LAB POCT ORD ERABLES - DEVICE Final Result AILEEN [facility] Department [place] [address] * BRAIN, BRAIN STEM MAGNETIC RESONANCE (MR) IMAGING (08/12/2024 1:35 PM SUPERVISOR ABATTOIR) Anatomical Region Laterality Modality N/A Magnetic Resonan ce Historical Provider IMG MRI PROCEDURES Final Result * XR Chest 1 View (08/11/2024 9:53 AM SUPERVISOR ABATTOIR) Anatomical Region Laterality Modality Body, Chest N/A Radiographic Keyanna ging Historical Provider MD GRAHAM XR PROCEDURES Final R esult * Vl US Carotids (08/03/2024 8:46 AM SUPERVISOR ABATTOIR) Anatomical Region Laterality Modality Vascular Bilateral Ultrasound 08/03/2024 8:26 AM SUPERVISOR ABATTOIR Narrative 08/03/2024 9:47 AM SUPERVISOR ABATTOIR Vascular & Vein Surgery [address] [place] [address] Carotid Duplex Ultrasound Report Patient Name: RADHA ALLEN K : 1945 (79y 4m) Study Date: 08/03/2024 8:26:13 AM Gender: F Fabricating Machine Operator: CAMILO Location: [facility] Ref Provider: SERVANDO TORRE Quality: Adequate [...] above. Electronically Signed By: Gino Correa MD [facility] 08/03/2024 9:46:05 AM SUPERVISOR ABATTOIR Procedure Note Gino Correa MD - 08/03/2024 Vascular & Vein Surgery [address] [place] [address] Carotid Duplex Ultrasound Report Patient Name: RADHA ALLEN K : 1945 (79y 4m) Study Date: 08/03/2024 8:26:13 AM Gender: F Fabricating Machine Operator: Location: [facility] Provider: SERVANDO TORRE Quality: Adequate Order [...] above. Electronically Signed By: Gino Correa MD [facility] 08/03/2024 9:46:05 AM SUPERVISOR ABATTOIR us Servando Torre MD [facility] US PROCEDURES Final Res ult * Methylmalonic acid, serum (08/03/2024 8:30 AM SUPERVISOR ABATTOIR) MMA 0.25 <=0.40 nmol/mL [facility] Comment: ADDITIONAL INFORMATION This test was developed and its performance characteristics determined by [facility] in a manner consistent with CLIA requirements. This test has not been cleared or approved by the U.S. Food and Drug Administration. Test Performed by: [facility] Laboratories - [address] [address] Substation Operator Apprentice: Liu Davis Ph.D.; CLIA# [id number] Blood 08/03/2024 8:30 AM SUPERVISOR ABATTOIR 08/03/2024 4:21 PM SUPERVISOR ABATTOIR us Chelsie Francisco NP LAB BLOOD ORDERABLES F inal Result [facility] [address] Department [place] [address] [facility] * Homocysteine (08/03/2024 8:30 AM SUPERVISOR ABATTOIR) [facility] Homocysteine 14.0 0.0 - 15.0 mcmol/L Comment:Testing performed by : [id number], [address] [facility], [place]., [address] Blood 08/03/2024 8:30 AM SUPERVISOR ABATTOIR 08/04/2024 10:21 AM SUPERVISOR ABATTOIR Chelsie Francisco CASING RUNNING MACHINE TENDER LAB BLOOD ORDERABLES F inal Result Performing Organization Address City/[facility]/ZIP Co de Phone Number AILEEN MATTHEW [address] Department [place] [address] * Vitamin B12 (08/03/2024 8:30 AM SUPERVISOR ABATTOIR) [facility] Vitamin B12 350 230 - 1,250 pg/mL Blood 08/03/2024 8:30 AM SUPERVISOR ABATTOIR 08/03/2024 4:21 PM SUPERVISOR ABATTOIR Chelsie Francisco CASING RUNNING MACHINE TENDER LAB BLOOD ORDERABLES F inal Result Performing Organization Address [facility] Co de Phone Number ALIEEN MATTHEW [address] Department [place] [address] * HEAD COMPUTED TOMOGRAPHY (CT) WITHOUT CONTRAST (07/11/2024 9:14 AM SUPERVISOR ABATTOIR) Anatomical Region Laterality Modality N/A Computed Tomogra phy Marcell Rucker MD IMG CT PROCEDURES Final Result * eGFR (07/02/2024 10:20 AM SUPERVISOR ABATTOIR) [facility] eGFR 66 >=60 mL/min/1. 73 m2 Comment: [...] reviewed 2021. Blood 07/02/2024 10:2 0 AM SUPERVISOR ABATTOIR 07/02/2024 5:35 PM SUPERVISOR ABATTOIR us Kimberly Nicolas MD LAB BLOOD ORDERABLES Final Resu lt [facility] [address] Department [place] [address] * Differential, auto (07/02/2024 10:20 AM SUPERVISOR ABATTOIR) Neutrophil abs 5.1 1.5 - 6.5 K/cumm Imm gran abs 0.0 0.0 - 0.1 K/cumm [facility] Lymphocyte abs 1.4 0.8 - 3.3 K/cumm [facility] Monocyte abs 0.7 0.2 - 0.8 K/cumm [facility] Eosinophil abs 0.3 0.0 - 0.5 K/cumm [facility] Basophil abs 0.0 0.0 - 0.1 K/cumm [facility] Neutrophil pct 68.0 % [facility] Comment: Interpretive Data Percent cell count reference ranges are not reported, since discordance with absolute values may lead to misinterpretation of CBC data. Current Interpretive Data was last revised on 2017. Imm gran pct 0.5 % [facility] Comment: Interpretive Data Percent cell count reference ranges are not reported, since discordance with absolute values may lead to misinterpretation of CBC data. Current Interpretive Data was last revised on 2017. Lymphocyte pct 18.7 % [facility] Comment: Interpretive Data Percent cell count reference ranges are not reported, since discordance with absolute values may lead to misinterpretation of CBC data. Current Interpretive Data was last revised on 2017. Monocyte pct 9.0 % [facility] Comment: Interpretive Data Percent [...] on 2017. Blood 07/02/2024 10:2 0 AM SUPERVISOR ABATTOIR 07/02/2024 5:00 PM SUPERVISOR ABATTOIR us Kimberly Nicolas MD LAB BLOOD ORDERABLES Final Resu lt [facility] [address] Department of Laboratories [place], [place] [id number] * (ABNORMAL) Urinalysis reflex to microscopic and culture Urine, clean voided (07/02/2024 10:20 AM SUPERVISOR ABATTOIR) Color, ur Yellow Yellow Clarity, ur Clear Clear [facility] Specific gravity, ur 1.012 1.003 - 1.030 [facility] pH, urine 6.5 [facility] Comment: Interpretive Data U rine pH is affected by diet, medications, systemic acid-base disturbances, and renal tubular function. pH may affect urinary stone formation. For example, urine pH below 6.0 may help reduce the tendency for calcium phosphate stones and pH greater than 6.0 may reduce the tendency for uric acid stone formation. Source: [facility] [employer] Current Interpretive Data was last revised on [...] CH Urine, clean voided 07/02/2024 10:20 AM SUPERVISOR ABATTOIR 07/02/2024 5:00 PM SUPERVISOR ABATTOIR Kimberly Nicolas MD LAB MICROBIOLOGY - [facility] Final Result Performing Organization Address [facility]/ZIP Co de Phone Number AILEEN MATTHEW [address] [place] [address] * (ABNORMAL) CBC with auto differential (07/02/2024 10:20 AM SUPERVISOR ABATTOIR) WBC 7.4 3.8 - 9.9 K/cumm Hgb [...] CH MCHC 30.1(L) 32.3 - 35.7 g/dL [facility] RDW CV 13.0 11.1 - 14.9 % [facility] RDW SD 43.8 35.7 - 48.1 fL [facility] NRBC abs 0.00 0.00 - 0.01 K/cumm [facility] Blood 07/02/2024 10:2 0 AM SUPERVISOR ABATTOIR 07/02/2024 5:00 PM SUPERVISOR ABATTOIR Kimberly Nicolas MD LAB BLOOD ORDERABLES Final Resu lt Performing Organization Address [facility]/ZIP Co de Phone Number AILEEN MATTHEW [address] Department [place] [address] * (ABNORMAL) Albumin Creatinine Ratio, Urine (07/02/2024 10:20 AM SUPERVISOR ABATTOIR) Albumin Ur 45.5 mg/L Comment: Interpretive Data No reference range established. Current interpretive data was last revised 2018. Creatinine Ur 73.7 mg/dL [facility] Comment: Interpretive Data No reference range established. Current interpretive data was last revised 2018. Albumin Creatinine Ratio, Ur 62(H) 1 - 29 mg/g [facility] Urine 07/02/2024 10:2 0 AM SUPERVISOR ABATTOIR 07/02/2024 5:00 PM SUPERVISOR ABATTOIR Servando Torre MD LAB URINE ORDERABLES Final Result Performing Organization Address [facility] Phone Number AILEEN [address] [place] [address] * Lamotrigine level (07/02/2024 10:20 AM SUPERVISOR ABATTOIR) Pathologist [facility] Lamotrigine 9.6 3.0 - 15.0 mcg/mL [place] ref Lab Comment: ADDITIONAL INFORMATION This test was developed and its performance characteristics determined by [facility] in a manner consistent with CLIA requirements. This test has not been cleared or approved by the U.S. Food and Drug Administration. Test Performed by: [facility] [place] [address] Substation Operator Apprentice: Liu Davis Ph.D.; CLIA# [id number] Blood 07/02/2024 10:2 0 AM SUPERVISOR ABATTOIR 07/02/2024 5:00 PM SUPERVISOR ABATTOIR Servando Torre MD LAB BLOOD ORDERABLES Final Result Performing Organization Address [facility] Phone Number [facility] [address] [facility] [employer] [place], [place] [id number] [place] ref Lab * (ABNORMAL) Urinalysis, microscopic only (07/02/2024 10:20 AM SUPERVISOR ABATTOIR) WBC, ur 6-10(A) 0 - 5 /HPF RBC, ur 3-5(A) 0 - 2 /HPF [facility] Epithelial cells, squamous, ur 1-5 0 - 5 /HPF [facility] Mucous, ur Present(A) [facility] Culture Reflex Comment Reflex conditions for urine culture (WBC >10) not met. [facility] Urine, clean voided 07/02/2024 10:20 AM SUPERVISOR ABATTOIR 07/02/2024 5:00 PM SUPERVISOR ABATTOIR Kimberly Nicolas MD LAB URINE ORDERABLES Final Resu lt Performing Organization Address [facility] Co de Phone Number [facility] [address] [place] [address] * (ABNORMAL) Hemoglobin A1c (07/02/2024 10:20 AM SUPERVISOR ABATTOIR) Hgb A1C 6.4(H) 4.0 - 5.6 % Estimated Average Glucose 137 mg/dL [facility] Comment: The ADA recommends reporting an estimated Average Glucose (eAG) with all Hemoglobin A1c results using the equation derived from a study of 507 normal and diabetic adults. Minority populations were underrepresented and children were not included. (Diabetes Care 31:5362-6494, 2008). The eAG is not equivalent to a fasting glucose. Blood 07/02/2024 10:2 0 AM SUPERVISOR ABATTOIR 07/02/2024 5:00 PM SUPERVISOR ABATTOIR Servando Torre MD LAB BLOOD ORDERABLES Final Result Performing Organization Address [facility] Co de Phone Number [facility] [address] [place] [address] * (ABNORMAL) Lipid panel (07/02/2024 10:20 AM SUPERVISOR ABATTOIR) Cholesterol 190 30 - 199 mg/dL Comment: [...] mg/dL High: >160 mg/dL Calculated using the Hope LDL-C estimating [...] CERNER CH Blood 07/02/2024 10:2 0 AM SUPERVISOR ABATTOIR 07/02/2024 5:00 PM SUPERVISOR ABATTOIR Servando Torre MD LAB BLOOD ORDERABLES Final Result [facility] [address] [place] [address] * (ABNORMAL) Comprehensive metabolic panel (07/02/2024 10:20 AM SUPERVISOR ABATTOIR) Sodium 141 135 - 145 mmol/L Potassium, [...] CERNER CH Blood 07/02/2024 10:2 0 AM SUPERVISOR ABATTOIR 07/02/2024 5:00 PM SUPERVISOR ABATTOIR us Kimberly Nicolas MD LAB BLOOD ORDERABLES Final Resu lt AILEEN MATTHEW [address] [place] [address] * XR Spine Lumbar 2 or 3 Views (06/18/2024 3:04 PM SUPERVISOR ABATTOIR) Anatomical Region Laterality Modality Spine N/A Digital Radiogra phy 06/18/2024 5:05 PM SUPERVISOR ABATTOIR Narrative 06/18/2024 5:13 PM SUPERVISOR ABATTOIR EXAM DESCRIPTION: XR HIP LEFT 2 OR [...] no change from prior CT. There is fmnx-ut-culjataq multilevel degenerative endplate change with no acute [...] Teofilo Rand M.D. MJ T: Report ID: [id number] Reading Location: [id number] Procedure Note Teofilo Rand MD - 06/18/2024 [...] no change from prior CT. There is bwyu-ac-ytyeaijp multilevel degenerative endplate change with no acute [...] Teofilo Rand M.D. MJ T: Report ID: [id number] Reading Location: [place] [address] us Pricilla Olguin NP IMG XR PROCEDURES Final Result * XR Hip Left 2+ Vw (06/18/2024 3:04 PM SUPERVISOR ABATTOIR) Anatomical Region Laterality Modality Lower Extremities, Hip, Pelvis Left D igital Radiography 06/18/2024 5:05 PM SUPERVISOR ABATTOIR Narrative 06/18/2024 5:13 PM SUPERVISOR ABATTOIR EXAM DESCRIPTION: XR HIP LEFT 2 OR [...] no change from prior CT. There is nfvu-vk-qszflwpz multilevel degenerative endplate change with no acute [...] Teofilo Rand M.D. MJ T: Report ID: [id number] Reading Location: [id number] Procedure Note Teofilo Rand MD - 06/18/2024 [...] no change from prior CT. There is nmrt-mo-fqjelitw multilevel degenerative endplate change with no acute [...] Teofilo Rand M.D. MJ T: Report ID: [id number] Reading Location: [place] [address] Pricilla Olguin NP IMG XR PROCEDURES Final [...] Bone mineral density was performed on a [employer] Discovery Densitometer. Based on machine cross-calibration and [...] scan were prepared by Myah Salcedo) LORRIE who is accredited by the International Society of Clinical Densitometry. The overall patient assessment and scan interpretation were performed by Josep Mathew MD who is certified by the International Society of Clinical Densitometry. [id number] Servando Torre MD IMG DXA PROCEDURES Final Re sult from Last 3 Months or Most Recently Relevant to Health Maintenance Insurance MEDICARE [facility] MEDICARE SUPPLEMENT MEDICARE [employer] MEDICARE SUPPLEMENT MEDICARE [facility]LY [facility], 1928–1983 MEDICARE FORMERLY [facility], [facility]–1983 Advance Directives For more information, please contact: [phone] * Full Code (Latest Code Status on [...] 9:30 AM 11/29/2022 3:28 PM Care Teams Lead Pharmacy Technician Relationship Specialty Start Date End Date Servando Torre MD [address] [facility] [address] [place] [address] PCP - General Family Medicine 06/19/22 Mariela Denton MD [address] [place] [address] Referring Physician Gastroenterology 06/19/22 Lexis Barroso OD [address], [place] [address] Supervisor Prep 09/19/22 Kristopher Hopson, ELMO [address] [facility] [address] [place] [address] Continuous Improvement Black Belt 08/25/24
[2024-09-13 20:19] VITALS: BP 175/54; PULSE 40; RESP 15; TEMP 36.6; O2SAT 98
[2024-09-13 20:37] VITALS: PULSE 38
[2024-09-13 20:38] VITALS: O2SAT 95
[2024-09-13 20:39] VITALS: BP 175/62; PULSE 38; RESP 15; O2SAT 95
[2024-09-13 20:42] LABS: Basophils Absolute Auto 0.1 K/mm3 (0.0-0.1); Basophils Percent Auto 0.5 % (0.2-1.2); Eosinophils Absolute Auto 0.3 K/mm3 (0-0.3); Hematocrit 45.8 % (37.0-47.0); Hemoglobin 14.6 g/dL (12.0-15.0); Immature Granulocyte Absolute 0.11 K/mm3 (0.00-0.031); Immature Granulocyte Percent A 0.8 % (0-0.5); Lymphocytes Absolute Auto 3.17 K/mm3 (0.9-3.2); Lymphocytes Percent Auto 22.7 % (18.3-44.2); Mean Corpuscular HGB Conc 31.9 g/dl (32-36); Mean Corpuscular Hemoglobin 28.8 pg (26-34); Mean Corpuscular Volume 90.3 fl (80-100); Mean Platelet Volume 9.1 fl (7.4-10.4); Monocytes Absolute Auto 1.5 K/mm3 (0.1-0.6); Monocytes Percent Auto 10.6 % (2.6-8.5); Neutrophils Absolute Auto 8.8 K/mm3 (1.3-6.7); Neutrophils Percent Auto 63.4 % (45.5-73.1); Platelet Count Result 302 k/mm3 (150-375); Red Blood Count 5.07 M/mm3 (4.2-5.4); White Blood Count 13.9 K/mm3 (4.5-10.0)
[2024-09-13 20:53] LABS: Prothrombin Time 13.2 Seconds (11.1-14.7)
[2024-09-13 20:54] LABS: Partial Thromboplastin Time 26.5 Seconds (22.3-36.8)
[2024-09-13 21:05] LABS: Magnesium 2.2 mg/dL (1.6-2.3); Phosphorus 4.2 mg/dL (2.5-4.5)
[2024-09-13 21:06] VITALS: O2SAT 95
[2024-09-13 21:08] LABS: Alanine Aminotransferase 23 U/L (6-35); Albumin Level 4.5 g/dL (3.5-5.1); Alkaline Phosphatase 122 U/L (38-126); Anion Gap 10 mmol/L (4-12); Aspartate Amino Transferase 23 U/L (14-36); Bilirubin,Total 0.4 mg/dL (0.2-1.3); Blood Urea Nitrogen 16 mg/dL (7-17); Calcium 10.4 mg/dL (8.4-10.2); Carbon Dioxide 32 mmol/L (22-30); Chloride 97 mmol/L (98-107); Estimated CRCL calculation 36 ml/min; Estimated Glomerular Filt Rate > 60; Glucose 148 mg/dL (65-110); Lipase 91 U/L (23-300); Potassium 4.3 mmol/L (3.4-5.0); Sodium 139 mmol/L (137-145); Troponin I < 0.012 ng/mL (0.000-0.034)
[2024-09-13 21:13] LABS: Add Urine Microscopic? YES; Appearance Urine Clear (Clear); Bacteria Urine None Seen /hpf; Bilirubin Urine Negative (Negative); Blood Urine 1+ (Negative); Color Urine Yellow (Yellow); Glucose Urine UA Negative (Negative); Ketones Urine Negative (Negative); Leukocyte Esterase Ur Trace LEU/UL (Negative); Nitrate Urine Negative (Negative); Non Pathogenic Casts 0-2; Protein Urine Negative (Negative); RBC Urine 0-2 /hpf (0-2); Specific Grav Ur 1.003 (1.001-1.035); Squamous Epithelial Cell Urine None Seen /hpf (Few); Urobilinogen Urine 0.2 mg/dL (<2.0); WBC Urine 0-5 /hpf (0-3); pH Urine 7.5 (5.0-9.0)
--- OUTSIDE RECORDS SUMMARY | 2024-09-13 21:18 | XMS_ITS | Encounter Summary ---
Author Organization [facility] Address [address] [place] [address] Care Team Providers Care Broiler Supervisor Name Role Phone Jared Abrams MD Primary Care Provider [phone] Servando Torre MD Primary Care Provider [phone] Encounter Details Date Type Department Care Team (Late st Contact Info) Description 09/26/2003 Abstract [facility] Conversion , Generic Conversion, [...] st Contact Info) Description 09/28/2024 2:30 PM ASSEMBLY TECHNICIAN Appointment [facility] [address] [place] [address] Josué Cook MD [address] [facility] [address] [place] [address] documented as of this encounter Visit Diagnoses Not on filedocumented in this encounter Care Teams Broiler Supervisor Relationship Specialty Start Date End Date Jared Abrams MD PCP - General 08/28/11 07/16/22 Servando Torre MD [address] [facility] [address] [place] [address] PCP - General FAMILY PRACTICE 07/17/22 documented as of this encounter
--- OUTSIDE RECORDS SUMMARY | 2024-09-13 21:18 | XMS_ITS | Encounter Summary ---
Author Organization [facility] Address [address] [place] [address] Care Team Providers Care Senior Industrial Engineer Name Role Phone Servando Torre MD Primary Care Provider + [phone] Encounter Details Date Type Department Care Team (Late st Contact Info) Description 05/01/[address] [facility] [address] [place] [address] Josué Cook MD [address] [address] Social History Tobacco Use Types Packs/Day Years [...] st Contact Info) Description 09/28/2024 2:30 PM HEAD BUYER TOBACCO Appointment [address] [address] Josué Cook MD [address] [address] documented as of this encounter Goals Goal Patient Goal Type Associated Problems Recent Progress Patient-Stated? Author HOME TO INDEPENDENT LIVING [facility] No Vannessa Blackwell RN documented as of this encounter Visit Diagnoses Diagnosis Chronic ulcerative colitis, unspecified complication (CMS/HCC HHS/HCC)- Primary Abnormal liver function tests Other abnormal blood chemistry documented in this encounter Additional Health Concerns Assessment Noted Time PHQ-9 Depression Total Score: 0 07/06/20 21 4:06 PM HEAD BUYER TOBACCO documented as of this encounter Care Teams Senior Industrial Engineer Relationship Specialty Start Date End Date Servando Torre MD [address] [place] [address] [address] [place] [address] PCP - General FAMILY PRACTICE 07/17/22 documented as of this encounter
--- OUTSIDE RECORDS SUMMARY | 2024-09-13 21:18 | XMS_ITS | Encounter Summary ---
Author Organization [facility] Address [address] [place] [address] Care Team Providers Care Travel Guide Name Role Phone Servando Torre MD Primary Care Provider + [phone] Encounter Details Date Type Department Care Team (Late st Contact Info) Description 08/19/2023 Therapy Plan [facility] [address] [place] [address] Josué Cook MD [address] [address] Social History Tobacco Use Types Packs/Day Years [...] st Contact Info) Description 09/28/2024 2:30 PM FISHING TOOL OPERATOR Appointment [address] [address] Josué Cook MD [address] [address] documented as of this encounter Goals Goal Patient Goal Type Associated Problems Recent Progress Patient-Stated? Author HOME TO INDEPENDENT LIVING [facility] No Vannessa Blackwell RN documented as of this encounter Visit Diagnoses Diagnosis Abnormal liver function tests- Primary Other abnormal blood chemistry Chronic ulcerative colitis, unspecified complication ([facility]/HCC [facility]/HCC) documented in this encounter Additional Health Concerns Assessment Noted Time PHQ-9 Depression Total Score: 0 07/06/20 21 4:06 PM FISHING TOOL OPERATOR documented as of this encounter Care Teams Travel Guide Relationship Specialty Start Date End Date Servando Torre MD [address] [place] [address] [address] [place] [address] PCP - General FAMILY PRACTICE 07/17/22 documented as of this encounter
--- OUTSIDE RECORDS SUMMARY | 2024-09-13 21:18 | XMS_ITS | Encounter Summary ---
Author Organization [facility] Address [address] [place] [address] Care Team Providers Care Mine Geologist Name Role Phone Servando Torre MD Primary Care Provider [phone] Mariela Denton MD Unavailable [phone] Lexis Barroso OD Unavailable [phone] Kristopher Hopson RN Unavailable Reason for Visit * Reason Onset Date Comments Appointment Request 08/26/2024 Encounter Details Date Type Department Care Team (Late st Contact Info) Description 08/26/2024 Telephone [facility] Primary Care at [address] [address] Servando Torre MD [address] [place] [address] [address] [place] [address] Appointment Request Social History Tobacco [...] on file Legal Sex Female 9:30 AM CULINARY ART TEACHER Gender Identity Female 04/05/2022 6:17 PM CDT Sexual Orientation Straight 04/05/2022 6: 17 PM CDT documented as of this encounter Miscellaneous Notes * Telephone Encounter - Kristopher Hopson RN - 08/26/2024 3:17 PM CULINARY ART TEACHER [facility] Jul for Seizure. Spoke to dtr, Aby (HIPAA). She wanted you to know pt had an inpatient stay. Offered CHRISTELLE, but she would like to defer PCP appt unless you felt it was necessary. Please advise. Thank you, Matthew Hopson RN -[facility] ACO Optimization Analyst [phone] NARY ART TEACHER documented in this encounter Plan of Treatment Not on file documented as of this encounter Visit Diagnoses Not on filedocumented in this encounter Care Teams Mine Geologist Relationship Specialty Start Date End Date Servando Torre MD [address] [facility] [address] [place] [address] PCP - General Family Medicine 06/19/22 Mariela Denton MD [address] [place] [address] Referring Physician Gastroenterology 06/19/22 Lexis Barroso OD [address] [place] [address] Learning And Development Administrator 09/19/22 Kristopher Hopson RN [address] [facility] [address] [place] [address] Optimization Analyst 08/25/24 documented as of this encounter
--- OUTSIDE RECORDS SUMMARY | 2024-09-13 21:18 | XMS_ITS | Continuity of Care Document ---
Author Organization [facility] Address [address] [facility] [address] [place] [address] Phone Care Team Providers Care Steel Die Printer Name Role Phone Saul Ribera PT Unavailable [...] Diagnoses Date Provider Providers Copied on Encounter [facility], [id number], tel:[phone] [place] No Information 3 Bacilio Saul. . [facility], [id number], tel:[phone] [facility] No Information 3 Bacilio Saul. . Referring Provider: Servando Bernstein, Formerly named [facility] [place], [address]. tel:[phone] [facility] [address], [id number], tel:[phone] [facility] No Information 3 Bacilio Saul. . Referring Provider: Servando Bernstein, Formerly named [facility] [place], [address]. tel:[phone] [facility] [address], [id number], tel:[phone] [facility] Urge incontinence 3 Bacilio Saul. . Referring Provider: Servando Bernstein, Formerly named [facility] [place], [address]. tel:[phone] [facility], [address] [facility], [place], [place], [id number], [place] tel:[phone] [facility] No Information Franklin-1 3 Bacilio Saul. . Referring Provider: Servando Bernstein, [address] [place], [address]. tel:[phone] [facility] [address] [facility] [facility] [address], [place], [place], [id number], [place] tel:[phone] [facility] No Information Franklin-1 - 3 Bacilio Saul. . Referring Provider: Servando Bernstein, [address] [place], [address]. tel:[phone] [facility] [address] [address], [place], [place], [id number], tel:[phone] [facility] No Information Franklin-0 6 3 Bacilio Saul. . Referring Provider: Servando Bernstein, [address] [place], [address]. tel:[phone] [facility] [address] [address], [place], [place], [address], tel:[phone] [facility] No Information Franklin-0 3 Bacilio Saul. . Referring Provider: Servando Bernstein, [address] [place], [address]. tel:[phone] [facility] [address] [facility] [address], [place], [place], [address], [place] tel:[phone] [facility] No Information Franklin-0 - 3 Bacilio Saul. . Referring Provider: Servando Bernstein, [address] [place], [address]. tel:[phone] [facility], [address] [facility] [address], [place], [place], [id number], [place] tel:[phone] [facility] No Information November- 3 Bacilio Saul. . Referring Provider: Servando Bernstein, [address] [facility], [place], [address]. tel:[phone] [facility], [address] [address], [place], [place], [id number], tel:[phone] [facility] No Information November- 3 Bacilio Saul. . Referring Provider: Servando Bernstein, [address] [facility], [place], [address]. tel:[phone] [facility], [address] [address], [place], [place], [address], tel:[phone] [facility] No Information November- 3 Bacilio Saul. . Referring Provider: Servando Bernstein, [address] [place], [address]. tel:[phone] [facility], [address] [address], [place], [place], [id number], tel:[phone] [facility] No Information 3 Bacilio Saul. . Referring Provider: Servando Bernstein, [address] [place], [address]. tel:[phone], [id number], tel:[phone] [facility] No Information November- 3 Bacilio Saul. . Referring Provider: Servando Bernstein, [address] [place], [address]. tel:[phone] [facility], [address] [address], [place], [place], [id number], tel:[phone] [facility] No Information 3 Bacilio Saul. . Referring Provider: Servando Bernstein, [address] [place], [address]. tel:[phone] [facility] [address], [place], [place], [address], [place] tel:[phone] [facility] No Information May-0 9-202 3 Bacilio Saul. . Referring Provider: Servando Bernstein, [address] [place], [address]. tel:[phone] [facility] [address] [address], [place], [place], [address], [place] tel:[phone] [facility] No Information May-0 3-202 3 Bacilio Saul. . Referring Provider: Servando Bernstein, [address] [place], [address]. tel:[phone] [facility], [address] [address], [place], [place], [address], tel:[phone] [facility] No Information May-0 2-202 3 Bacilio Saul. . Referring Provider: Servando Bernstein, [address] [place], [address]. tel:[phone] [facility], [id number], tel:[phone] [facility] No Information Apr-2 7-202 3 Bacilio Saul. . Referring Provider: Servando Bernstein, [address] [place], [address]. tel:[phone] [facility], [id number], [place] tel:[phone] [facility] Unspecified urinary incontinenceUrge incontinence Apr-2 5-202 3 Bacilio Saul. . Referring Provider: Servando Bernstein, [address] [place], [address]. tel:[phone] [facility], [address] [address], [place], [id number], [place] tel:[phone] [facility] No Information Apr-2 0-202 3 Bacilio Saul. . Referring Provider: Servando Bernstein, [address] [facility], [place], [address]. tel:[phone] [facility], [address] [address], [place], [place], [address], tel:[phone] [facility] No Information Apr-1 8-202 3 Bacilio Saul. . Referring Provider: Servando Bernstein, [address] [facility], [place], [address]. tel:[phone] [facility], [address] [address], [place], [place], [address], [place] tel:[phone] [facility] No Information Apr-1 4-202 3 Bacilio Saul. . Referring Provider: Servando Bernstein, [address] [place], [address]. tel:[phone] [facility], [address] [address], [place], [address], [place] tel:[phone] [facility] No Information Apr-1 3-202 3 Bacilio Saul. . Referring Provider: Servando Bernstein, [address] [place], [address]. tel:[phone] [facility], [address], [id number], [place] tel:[phone] [facility] No Information Apr-0 6-202 3 Bacilio Saul. . Referring Provider: Servando Bernstein, [address] [place], [address]. tel:[phone] [facility] [address], [place], [place], [address], [place] tel:[phone] [facility] No Information Apr-0 4-202 3 Bacilio Saul. . Referring Provider: Servando Bernstein, [address] [place], [address]. tel:[phone] [place] [address], [address] [address], [place], [id number], [place] tel:[phone] [facility] No Information Mar-3 1-202 3 Bacilio Saul. . Referring Provider: Servando Bernstein, [address] [place], [address]. tel:[phone] [facility] [address], [place], [place], [address], [place] tel:[phone] [facility] No Information Mar-3 0-202 3 Bacilio Saul. . Referring Provider: Servando Bernstein, [address] [place], [address]. tel:[phone] [facility] [address], [place], [place], [address], tel:[phone] [facility] No Information Mar-2 3-202 3 Bacilio Saul. . Referring Provider: Servando Bernstein, [address] [place], [address]. tel:[phone] [facility], [id number], [place] tel:[phone] [facility] No Information Mar-2 1-202 3 Bacilio Saul. . Referring Provider: Servando Bernstein, [address] [place], [address]. tel:[phone] [facility] [address], [place], [address], [place] tel:[phone] [facility] No Information Mar-1 5- 3 Bacilio Saul. . Referring Provider: Servando Bernstein, [address] [place], [address]. tel:[phone] [facility] [address], [place], [address], [place] tel:[phone] [facility] Unspecified urinary incontinenceUnsp ecified urinary incontinence Mar-1 3-202 3 Bacilio Saul. . Referring Provider: Servando Bernstein, [address] [facility], [place], [address]. tel:[phone] [facility], [address] [address], [place], [place], [address], tel:[phone] [facility] No Information Sep- 3 Bacilio Saul. . Referring Provider: Servando Bernstein, [address] [facility], [place], [address]. tel:[phone] [facility], [address] [address], [place], [place], [address], [place] tel:[phone] [facility] No Information 3 Bacilio Saul. . Referring Provider: Servando Bernstein, [address] [facility], [place], [address]. tel:[phone] [facility], [address] [address], [place], [address], [place] tel:[phone] [facility] No Information 3 Bacilio Saul. . Referring Provider: Servando Bernstein, [address] [place], [address]. tel:[phone] [address], [place], [address], [place] tel:[phone] [facility] No Information 3 Bacilio Saul. . Referring Provider: Servando Bernstein, [address] [facility], [place], [address]. tel:[phone] [facility], [address] [address], [place], [address], [place] tel:[phone] [facility] No Information 3 Fatimah Jimenez. . Referring Provider: Servando Bernstein, [address] [place], [address]. tel:[phone] [facility], [address] [address], [place], [address], [place] tel:[phone] [facility] No Information 3 Bacilio Saul. . Referring Provider: Servando Bernstein, Formerly named [facility] [place], [address]. tel:[phone] [facility], [address] [address], [place], [address], [place] tel:[phone] [facility] No Information 3 Bacilio Saul. . Referring Provider: Servando Bernstein, [address] [place], [address]. tel:[phone] [facility] [address], [place], [place], [address], tel:[phone] [place] No Information 3 Bacilio Saul. . Referring Provider: Servando Bernstein, [address] [place], [address]. tel:[phone] [facility], [id number], [place] tel:[phone] [place] No Information 3 Bacilio Saul. . Referring Provider: Servando Bernstein, Formerly named [facility] [place], [address]. tel:[phone] [facility], [id number], [place] tel:[phone] [facility] No Information 3 Bacilio Saul. . Referring Provider: Servando Bernstein, Formerly named [facility] [place], [address]. tel:[phone] [facility] [address], [place], [place], [address], tel:[phone] [facility] No Information 3 Bacilio Saul. . Referring Provider: Servando Bernstein, [address] [facility], [place], [address]. tel:[phone] [facility] [address] [address], [place], [place], [address], tel:[phone] [facility] No Information 3 Bacilio Saul. . Referring Provider: Servando Bernstein, [address] [facility], [place], [address]. tel:[phone] [facility], [address] [facility], [place], [place], [address], [place] tel:[phone] [facility] No Information 3 Bacilio Saul. . Referring Provider: Servando Bernstein, [address] [facility], [place], [address]. tel:[phone] [facility], [address] [address], [place], [place], [address], tel:[phone] [facility] No Information 3 Bacilio Saul. . Referring Provider: Servando Bernstein, [address] [facility], [place], [address]. tel:[phone] [facility], [address] [place] [address], [place], [place], [address], tel:[phone] [facility] No Information 3 [place], [place]. Referring Provider: Servando Bernstein, [address] [facility], [place], [address]. tel:[phone] [facility], [address] [facility] [address], [place], [place], [address], [place] tel:[phone] [facility] No Information 2 Bacilio Saul. . Referring Provider: Servando Bernstein, [address] [facility], [place], [address]. tel:[phone] [facility] [facility], [place], [place], [address], tel:[phone] [facility] No Information 2 Bacilio Mcdonald . Referring Provider: Servando Bernstein, Formerly named [facility], [place], [address]. tel:[phone] [facility], [address], [place], [place], [address], [place] tel:[phone] [facility] Urge incontinence 2 Titus Nicolasla. [address] [facility], [address], [place], [address], [place]. tel: [phone] Referring Provider: Servando Bernstein, [address] [facility], [place], [address]. tel:[phone] Family History Family Member Type Diagnosis Age At Onset No Information Payers Payer name Insurance type Covered constitution party ID Authoriza tion(s) Medicare [place] [id number] [facility] [id number] Social History Type Description Quantity Date Captured [...]
--- OUTSIDE RECORDS SUMMARY | 2024-09-13 21:18 | XMS_ITS | Encounter Summary ---
Author Organization [facility] Address [address] [place] [address] Phone Care Team Providers Care Senior Cisco Network Engineer Name Role Phone Servando Torre MD Primary Care Provider [phone] Mariela Denton MD Unavailable [phone] Lexis Barroso OD Unavailable [phone] Kristopher Hopson RN Unavailable [phone] Encounter Details Date Type Department Care Team (Late st Contact Info) Description 08/31/2024 Telephone [facility] Gastroenterology [address] [facility] 12th [place] [address] [place] [id number] Ayala Mobley RN Social History Tobacco Use [...] on file Legal Sex Female 9:30 AM KAYAK MAKER Gender Identity Female 04/05/2022 6:17 PM CDT Sexual Orientation Straight 04/05/2022 6: 17 PM CDT documented as of this encounter Miscellaneous Notes * Telephone Encounter - Ayala Mobley RN - 09/09/2024 12:00 PM KAYAK MAKER 08/31- Call to patient to schedule colonoscopy. No answer, LVM. 09/09- pt reports she is currently unable to schedule. Will call back after 2 pm. K MAKER documented in this encounter Plan of Treatment Not on file documented as of this encounter Visit Diagnoses Not on filedocumented in this encounter Care Teams Senior Cisco Network Engineer Relationship Specialty Start Date End Date Servando Torre MD [address] [facility] [address] [place] [address] PCP - General Family Medicine 06/19/22 Mariela Denton MD [address] [place] [address] Referring Physician Gastroenterology 06/19/22 Lexis Barroso OD [address] [place] [address] Agricultural Extension Officer 09/19/22 Kristopher Hopson RN [address] [facility] [address] [place] [address] Raw Material Planner 08/25/24 documented as of this encounter
--- OUTSIDE RECORDS SUMMARY | 2024-09-13 21:18 | XMS_ITS | Clinical Summary ---
Author Organization [facility] Address [address] [place] [address] Care Team Providers Care Machinist Mechanic Name Role Phone Servando Torre MD Primary Care Provider [phone] Allergies Active Allergy Reactions Criticality Noted Date [...] tests 05/20/2023 Chronic ulcerative colitis, unspecified complication ([facility]) 06/18/2022 Ulcerative pancolitis withou t complication ([facility]) 09/04/2021 Overview (09/04/2021): Added automatically from request for surgery [id number] Colitis 03/20/2020 Encounters Date Type Department Care Team Description 08/03/2024 2:16 PM MECHANICAL PROJECT ENGINEER - 08/03/2024 3:00 PM MECHANICAL PROJECT ENGINEER Hospital Encounter [facility] Surgery [address] [place] [address] Josué Cook MD Discharge Disposition: Home or [...] Comments Blood Pressure 129/56 08/03/2024 2:46 PM MECHANICAL PROJECT ENGINEER Pulse 65 05/28/2024 2:06 PM CDT Temperature 36.7 C (98 F) 08/03/2024 1:44 PM MECHANICAL PROJECT ENGINEER Respiratory Rate 18 05/28/2024 2:06 PM CDT Oxygen Saturation 97% 08/03/2024 1:42 PM MECHANICAL PROJECT ENGINEER Inhaled Oxygen Concentration - - Weight 69.9 kg (154 lb) 04/19/2022 2:44 PM CDT Height 157.5 cm (5' 2 ) 04/19/2022 2:44 PM CDT Body Mass Index 28.17 04/19/2022 2:44 PM CDT Plan of Treatment Upcoming Encounters Date Type Department Care Team (Late st Contact Info) Description 09/28/2024 2:30 PM MECHANICAL PROJECT ENGINEER Appointment [facility] [address] [place] [address] Josué Cook MD [address] [facility] [address] [place] [address] Health Maintenance Due Date Last Done Comments DTaP, Tdap and Td Vaccines ( 1 - Tdap) 1964 Annual Medicare Wellness Visit 2008 RSV Immunization or 60+ Years (1 - 1-dose 75+ series) 2018 COVID-19 Vaccine (2 - Pfizer risk series) 06/20/2022 05/30/2022 Influenza Adult (#1) 2024 05/06/2022 PHQ-2 (Physician Becker) 07/28/2024 Zoster Vaccines Completed 08/01/2020, 05/30/2020 Dexa [...] TO INDEPENDENT LIVING General No Vannessa Blackwell printer assistant Procedure Name Priority Date/Time Associated Diagnosis Comments C-REACTIVE PROTEIN Routine 08/03/2024 1: 30 PM MECHANICAL PROJECT ENGINEER Chronic ulcerative colitis, unspecified complication (CMS/HCC HHS/HCC) Abnormal liver function tests CBC W/DIFF AUTOMATED Routine 08/03/2024 1:30 PM MECHANICAL PROJECT ENGINEER Chronic ulcerative colitis, unspecified complication (CMS/HCC HHS/HCC) Abnormal liver function tests COMPREHENSIVE METABOLIC PANEL Routine 08/03/2024 1:30 PM MECHANICAL PROJECT ENGINEER Chronic ulcerative colitis, unspecified complication (CMS/HCC HHS/HCC) Abnormal liver function tests from Last 3 Months Results * (ABNORMAL) COMPREHENSIVE METABOLIC PANEL (08/03/2024 1:30 PM MECHANICAL PROJECT ENGINEER) Pathologist [facility] GLUCOSE 160(H) 70 - 99 MG/DL 08/03/2024 2:57 PM [facility] BUN 18 7 - 18 MG/DL 08/03/2024 2:57 PM [facility] CREATININE S/P/B 1.21(H) 0.55 - 1.02 MG/DL 08/03/2024 2:57 PM [facility] SODIUM S/P/B 142 136 - 145 MMOL/L 08/03/2024 2:57 PM [facility] POTASSIUM S/P/B 4.0 3.5 - 5.1 MMOL/L 08/03/2024 2:57 PM [facility] CHLORIDE S/P/B 105 100 - 108 MMOL/L 08/03/2024 2:57 PM [facility] CO2 25.9 21 - 32 MMOL/L 08/03/2024 2:57 PM [facility] CALCIUM S/P/B 9.7 8.5 - 10.1 MG/DL 08/03/2024 2:57 PM [facility] BILIRUBIN TOTAL S/P/B 0.4 0.2 - 1.2 MG/DL 08/03/2024 2:57 PM [facility] TOTAL PROTEIN S/P/B 6.8 6.4 - 8.2 G/DL 08/03/2024 2:57 PM MECHANICAL PROJECT ENGINEER [facility] ALBUMIN S/P/B 3.7 3.4 - 5.0 G/DL 08/03/2024 2:57 PM [facility] AST 16 15 - 37 U/L 08/03/2024 2:57 PM [facility] ALT 17 14 - 55 U/L 08/03/2024 2:57 PM [facility] ALKALINE PHOSPHATASE S/P/B 120 50 - 136 U/L 08/03/2024 2:57 PM [facility] ANION GAP 11.1 5 - 15 MMOL/L 08/03/2024 2:57 PM [facility] BUN CREATININE RATIO 14.9 6 - 26 08/03/2024 2:57 PM [facility] A/G RATIO 1.2 1.0 - 2.0 RATIO 08/03/2024 2:57 PM [facility] GFR ESTIMATE 45(L) >90 ML/MIN/1.7 3 M2 08/03/2024 2:57 PM [facility] Comment: NOTE: eGFR is not calculated for patients <18 years of age. This is an estimated GFR calculation using the new CKD EPI creatinine equation without race and so does not require a correction factor for race. This estimated GFR should not be used for calculating drug doses. 08/03/2024 1:30 PM MECHANICAL PROJECT ENGINEER us Josué Cook MD LABORATORY Final Result [facility] [address] [place] [address], * C-REACTIVE PROTEIN (08/03/2024 1:30 PM MECHANICAL PROJECT ENGINEER) C-REACTIVE PROTEIN <0.29 <0.29 mg/dL 08/03/2024 10:01 PM MECHANICAL PROJECT ENGINEER [facility] 08/03/2024 1:30 PM MECHANICAL PROJECT ENGINEER Josué Cook MD LABORATORY Final Result [facility] [address] [place] [address], * (ABNORMAL) CBC W/DIFF AUTOMATED (08/03/2024 1:30 PM MECHANICAL PROJECT ENGINEER) [facility] WBC 8.96 4.4 - 11.0 x10'3/uL 08/03/2024 2:20 PM [facility] RBC 4.72 4.50 - 5.10 x10'6/uL 08/03/2024 2:20 PM [facility] HGB 13.7 12.3 - 15.3 G/DL 08/03/2024 2:20 PM [facility] HCT 42.2 35.9 - 44.6 % 08/03/2024 2:20 PM [facility] MCV 89.4 80.0 - 96.0 FL 08/03/2024 2:20 PM MECHANICAL PROJECT ENGINEER [facility] MCH 29.0 25.3 - 30.9 PG 08/03/2024 2:20 PM MECHANICAL PROJECT ENGINEER [facility] MCHC 32.5 31.0 - 34.1 G/DL 08/03/2024 2:20 PM [facility] RDW 13.8 12.4 - 15.1 % 08/03/2024 2:20 PM [facility] PLT 278 151 - 353 x10'3/uL 08/03/2024 2:20 PM [facility] MPV 9.0(L) 9.6 - 12.0 FL 08/03/2024 2:20 PM MECHANICAL PROJECT ENGINEER [facility] RBC MORPHOLOGY NORMAL 08/03/2024 2:20 PM [facility] PLT MORPH. NORMAL 08/03/2024 2:20 PM [facility] WBC MORPHOLOGY NORMAL 08/03/2024 2:20 PM [facility] LYMPHOCYTES % 22.2 15.8 - 45.0 % 08/03/2024 2:20 PM [facility] NEUTROPHILS % 67.6 42.1 - 71.9 % 08/03/2024 2:20 PM [facility] MONOCYTES % 9.2 5.7 - 12.5 % 08/03/2024 2:20 PM [facility] EOSINOPHILS 0.0 0.0 - 5.6 % 08/03/2024 2:20 PM [facility] BASOPHILS 0.6 0.0 - 1.3 % 08/03/2024 2:20 PM [facility] ABS. NEUTROPHILS 6.06(H) 1.40 - 6.00 x10'3/uL 08/03/2024 2:20 PM [facility] IMMATURE GRANS % 0.4 0.0 - 0.5 % 08/03/2024 2:20 PM [facility] ABS. LYMPHOCYTES 1.99 0.80 - 4.70 x10'3/uL 08/03/2024 2:20 PM [facility] 08/03/2024 1:30 PM MECHANICAL PROJECT ENGINEER us Josué Cook MD LABORATORY Final Result [facility] [address] [address] [id number], [place] [phone] from Last 3 Months Insurance MEDICARE [facility] Advance Directives * Full Code (Latest Code Status on File) Date Activated Date Inactivated Comments 03/20/2020 11:16 AM 03/23/2020 7:48 PM Care Teams Machinist Mechanic Relationship Specialty Start Date End Date Servando Torre MD [address] [place] [address] [address] [place] [address] PCP - General FAMILY PRACTICE 07/17/22
--- OUTSIDE RECORDS SUMMARY | 2024-09-13 21:18 | XMS_ITS | Encounter Summary ---
Author Organization [facility] Address [address] [place] [address] Care Team Providers Care Sales Marketing Coordinator Name Role Phone Jared Abrams MD Primary Care Provider [phone] Servando Torre MD Primary Care Provider [phone] Encounter Details Date Type Department Care Team (Late st Contact Info) Description 06/18/2022 Therapy Plan [facility] [address] [place] [address] Mariela Denton MD [facility] [address] [place] [address] Social History Tobacco Use Types Packs/Day Years [...] st Contact Info) Description 09/28/2024 2:30 PM DEAN OF STUDENT SERVICES Appointment [facility] [id number] [place] [address] Josué Cook MD [address] [address] documented as of this encounter Goals Goal Patient Goal Type Associated Problems Recent Progress Patient-Stated? Author [facility] General No Vannessa Blackwell RN documented as of this encounter Visit Diagnoses Diagnosis Chronic ulcerative colitis, unspecified complication (CMS/HCC [facility])- Primary documented in this encounter Additional Health Concerns Assessment Noted Time PHQ-9 Depression Total Score: 0 07/06/20 21 4:06 PM [employer] STUDENT SERVICES documented as of this encounter Care Teams Sales Marketing Coordinator Relationship Specialty Start Date End Date Jared Abrams MD PCP - General 08/28/11 07/16/22 Servando Torre MD [address] [facility] [address] [place] [address] PCP - General FAMILY PRACTICE 07/17/22 documented as of this encounter
--- OUTSIDE RECORDS SUMMARY | 2024-09-13 21:18 | XMS_ITS | Encounter Summary ---
Author Organization [facility] Address [address] [place] [address] Care Team Providers Care Pens And Pencils Dipper Name Role Phone Servando Torre MD Primary Care Provider [phone] Mariela Denton MD Unavailable [phone] Lexis Barroso OD Unavailable [phone] Kristopher Hopson RN Unavailable Reason for Visit * Reason Comments Urinary Problem Urinary frequency, u rgency and incontinence x 1 week and started confusion started today Encounter Details Date Type Department Care Team (Late st Contact Info) Description 09/13/2024 6:00 PM FLIGHT OPERATIONS ENGINEER Office Visit [facility] at [address] [address] Pricilla Olguin NP [address] [place] [address] [address] [place] [address] Urinary incontinence, unspecified type (Primary [...] file Legal Sex Female 9:30 AM FLIGHT OPERATIONS ENGINEER Gender Identity Female 04/05/2022 6:17 PM CDT Sexual Orientation Straight 04/05/2022 6: 17 PM CDT documented as of this encounter Last Filed Vital Signs Vital Sign Reading Time Taken Comments Blood Pressure 138/62 09/13/2024 6:27 PM FLIGHT OPERATIONS ENGINEER Pulse 39 09/13/2024 6:47 PM FLIGHT OPERATIONS ENGINEER Temperature 36.9 C (98.5 F) 09/13/2024 6:27 PM FLIGHT OPERATIONS ENGINEER Respiratory Rate 24 09/13/2024 6:27 PM FLIGHT OPERATIONS ENGINEER Oxygen Saturation 91% 09/13/2024 6:47 PM FLIGHT OPERATIONS ENGINEER Inhaled Oxygen Concentration - - Weight 63.5 kg (140 lb) 09/13/2024 6:27 PM FLIGHT OPERATIONS ENGINEER Height - - Body Mass Index 25.61 09/02/2024 1:14 PM FLIGHT OPERATIONS ENGINEER documented in this encounter Plan of Treatment Scheduled Orders Name Type Priority Associated Diagnoses Orde r Schedule Urine culture Urine, clean voided Microbiology Routine Urinary incontinence, unspecified type Expected: 09/13/2024, Expires: 09/13/2025 documented as of this encounter Procedures Procedure Name Priority Date/Time Associated Diagnosis Comments POCT URINALYSIS DIPSTICK Routine 09/13/2024 6:32 PM FLIGHT OPERATIONS ENGINEER Urinary incontinence, unspecified type documented in this encounter Results * (ABNORMAL) POCT urinalysis dipstick (09/13/2024 6:32 PM FLIGHT OPERATIONS ENGINEER) Color, Urine, POC Light Yellow Clarity, ur, POC Cloudy(A) Clear Glucose, ur, POC Negative Negative MG/DL Bilirubin, ur, POC Negative Negative, Small, Moderate, Large Ketones, ur, POC Negative Negative Specific [place], POC 1.005 1.003 - 1.030 Blood, ur, POC Moderate(A) Negative pH, ur, POC 6.5 5.0 - 8.0 Protein, ur, POC Negative Negative Urobilinogen, urine, POC 0.2 0.2 - 1.0 mg/dL Nitrite, ur, POC Negative Negative Leukocytes, ur, POC Trace(A) Negative Lot Number [id number] Urine 09/13/2024 6:32 PM FLIGHT OPERATIONS ENGINEER Pricilla Olguin WHOLESALE MANAGER POINT OF CARE TEST ORDERABLES F inal Result documented in this encounter Visit Diagnoses Diagnosis Urinary incontinence, unspecified type- Primary Bradycardia Other specified cardiac dysrhythmias Confusion Unspecified psychosis documented in this encounter Care Teams Pens And Pencils Dipper Relationship Specialty Start Date End Date Servando Torre MD [address] [facility] [address] [place] [address] PCP - General Family Medicine 06/19/22 Mariela Denton MD [facility] [address] [place] [address] Referring Physician Gastroenterology 06/19/22 Lexis Barroso OD [address] [address] Dynamo Repairer 09/19/22 Kristopher Hopson RN [address] [place] [address] [address] [place] [address] Lead Based Paint Technician 08/25/24 documented as of this encounter
--- OUTSIDE RECORDS SUMMARY | 2024-09-13 21:19 | XMS_ITS | Clinical Summary ---
Author Organization [facility] Address [address] [place] [address] Care Team Providers Care Substation Electrician Name Role Phone Servando Torre MD Primary Care Provider [phone] Mariela Denton MD Unavailable [phone] Lexis Barroso OD Unavailable [phone] Kristopher Hopson RN Unavailable Allergies Active Allergy Reactions Criticality Noted Date [...] catheter every 8 (eight) weeks Infused at: [facility] ([facility] order in Epic under [...] epilepticus 03/17/2023 At risk for falls 03/13/2023 group home (current) use of oral hypoglycemic funetes gs 02/20/2023 Epilepsy, unspecified, not i ntractable, [...] 05/29 Assessment & Plan (07/05/2024 3:20 PM MANGLE OPERATOR GARMENTS): A(n) yearly Medicare Annual Wellness Visit has [...] months Assessment & Plan (06/26/2023 2:02 PM MANGLE OPERATOR GARMENTS): A(n) yearly Medicare Annual Wellness Visit has [...] months Assessment & Plan (06/23/2022 3:06 PM MANGLE OPERATOR GARMENTS): A(n) initial Medicare Annual Wellness Visit has [...] (06/19/2022): Added automatically from request for surgery [id number] Ear ringing 03/03/2013 Asymmetrical sensorineural hearing loss 03/03/20 13 Stress fracture 07/07/2012 Arthralgia of hip 02/06/2011 Resolved Problems Problem Noted Date Diagnosed Date Resolved Date Hospital discharge follow-up 06/11/2023 08/07/2023 Assessment & Plan (06/11/2023 1:42 PM MANGLE OPERATOR GARMENTS): I have reviewed the hospital record, medications, [...] Department Care Team Description 09/13/2024 6:00 PM MANGLE OPERATOR GARMENTS Office Visit [facility] at [address] [phone] Pricilla Olguin NP Urinary incontinence, unspecified type (Primary Dx); Bradycardia; Confusion 09/02/2024 1:15 PM MANGLE OPERATOR GARMENTS Office Visit [facility] Orthopedic and Sports Medicine [address] [place] [phone] Riri Gonzalez PA 08/31/2024 Telephone [facility] G[facility] 12th [place] [phone] Ayala Mobley RN 08/26/2024 Telephone [facility] Primary Care at [address] [phone] Servando Torre MD Appointment Request 08/26/2024 Orders Only [facility] Medical [facility] Primary Care at [address] [phone] ProviderSilvestre MD 08/24/2024 Telephone [facility] Epilepsy [address] [facility] 6th [place] [address] [place] [address] Adria Burleson MD Medication Problem; Med Management; Seizures; Referral Request 08/17/2024 8:26 AM MANGLE OPERATOR GARMENTS - 08/23/2024 5:10 PM MANGLE OPERATOR GARMENTS Hospital Encounter [facility] [address] [place] [address] Adria Burleson MD Discharge Disposition: Discharge to home or self care 08/17/2024 8:00 AM MANGLE OPERATOR GARMENTS Ancillary Procedure [facility] [address] [place] [address] Rene De La O MT Seizure (HCC) 08/16/2024 Orders Only [facility] Medical Group Primary Care at [address] [phone] Silvestre Ahn MD 08/13/[address] [facility]diagnostics [address] [place] [address] Karen Lee 08/12/2024 Telephone [facility] Epilepsy [address] [facility] 6th [place] [address] [place] [phone] Ute Miller MD 08/12/2024 Orders Only [facility] Medical Group Primary Care at [address] [phone] ProviderSilvestre MD 08/03/2024 4:00 PM MANGLE OPERATOR GARMENTS - 08/03/2024 11:59 PM MANGLE OPERATOR GARMENTS Hospital Encounter [address] [address] Frequent falls; Syncope, unspecified syncope type; Memory impairment; Essential (primary) hypertension Discharge Disposition: Discharge to home or self care 08/03/2024 8:45 AM MANGLE OPERATOR GARMENTS Lab [facility] Medical Group Outpatient Lab at [address] [phone] 08/03/2024 8:00 AM MANGLE OPERATOR GARMENTS Ancillary Procedure [facility] Medical Group Vascular and Vein Surgery at [address] [place] [phone] Carotid stenosis, asymptomatic, bilateral 07/28/2024 Orders Only [facility] Diagnostic [place] [address] [facility] 6th Floor [address] [place] [phone] Chelsie Francisco NP 07/24/2024 Orders Only [address] 6th Floor [address] [place] [address] Chelsie Francisco NP Frequent falls (Primary Dx); Syncope, unspecified syncope type; Memory impairment; Essential (primary) hypertension; Sleep walking 07/22/2024 7:00 PM MANGLE OPERATOR GARMENTS Office Visit [facility] at [address] [phone] Lexis Chaves PA Encounter for staple removal (Primary Dx) 07/14/2024 Telephone [facility] Primary Care at [address] [phone] Results 07/12/2024 Orders Only [address] [place] [address] Chelsie Francisco NP 07/12/2024 Orders Only [facility] Primary Care at [address] [phone] Marcell Rucker MD 07/09/2024 Telephone [facility] [address] [facility] 6th [place] [phone] Adria Burleson MD Medication Problem; Request For Order(s) 07/08/2024 3:15 PM MANGLE OPERATOR GARMENTS Office Visit [address] 6th Floor [address] [place] [address] Chelsie Francisco NP Somnolence, daytime (Primary Dx); Memory impairment; Frequent falls; Anxiety 07/05/2024 3:00 PM MANGLE OPERATOR GARMENTS Office Visit [facility] Primary Care at [address] [phone] Servando Torre MD Encounter for Medicare annual wellness exam (Primary Dx); Mixed diabetic hyperlipidemia associated with type 2 diabetes mellitus (HCC); Hypertension associated with diabetes (HCC); Gastroesophageal reflux disease without esophagitis; At risk for falls; Carotid stenosis, asymptomatic, bilateral 07/02/2024 10:20 AM MANGLE OPERATOR GARMENTS - 07/02/2024 11:59 PM MANGLE OPERATOR GARMENTS Hospital Encounter [phone] [place] [address] Hypertension associated with diabetes (HCC); Seizure (HCC); Weakness generalized Discharge Disposition: Discharge to home or self care 07/02/2024 10:15 AM MANGLE OPERATOR GARMENTS Lab [facility] Medical Group Outpatient Lab at [address] [phone] Encounter for Medicare annual wellness exam (Primary Dx) 06/29/2024 Orders Only [facility] [address] [facility] 6th Floor [address] [place] [address] Kimberly Nicolas MD Weakness generalized (Primary Dx) 06/18/2024 3:00 PM MANGLE OPERATOR GARMENTS Ancillary Procedure [facility] Imaging at [address] [phone] Accidental fall, subsequent encounter 06/18/2024 2:55 PM MANGLE OPERATOR GARMENTS Ancillary Procedure [facility] Imaging at [address] [phone] Accidental fall, subsequent encounter 06/18/2024 2:30 PM MANGLE OPERATOR GARMENTS Office Visit [facility] at [address] [phone] Pricilla Olguin NP Accidental fall, [...] on file Legal Sex Female 9:30 AM MANGLE OPERATOR GARMENTS Gender Identity Female 04/05/2022 6:17 PM CDT Sexual Orientation Straight 04/05/2022 6: 17 PM CDT Obstetrics History Last Filed Vital Signs Vital Sign Reading Time Taken Comments Blood Pressure 138/62 09/13/2024 6:27 PM MANGLE OPERATOR GARMENTS Pulse 39 09/13/2024 6:47 PM MANGLE OPERATOR GARMENTS Temperature 36.9 C (98.5 F) 09/13/2024 6:27 PM MANGLE OPERATOR GARMENTS Respiratory Rate 24 09/13/2024 6:27 PM MANGLE OPERATOR GARMENTS Oxygen Saturation 91% 09/13/2024 6:47 PM MANGLE OPERATOR GARMENTS Inhaled Oxygen Concentration - - Weight 63.5 kg (140 lb) 09/13/2024 6:27 PM MANGLE OPERATOR GARMENTS Height 157.5 cm (5' 2 ) 09/02/2024 1:14 PM MANGLE OPERATOR GARMENTS Body Mass Index 25.61 09/02/2024 1:14 PM MANGLE OPERATOR GARMENTS Plan of Treatment Health Maintenance Due Date [...] POCT URINALYSIS DIPSTICK Routine 09/13/2024 6:32 PM MANGLE OPERATOR GARMENTS Urinary incontinence, unspecified type BRAIN COMPUTED TOMOGRAPHY (CT) Schedule Routine, Read Routine (OP Routine) 08/25/2024 12:30 PM MANGLE OPERATOR GARMENTS CONTINUOUS VIDEO EEG Routine 08/23/2024 2:39 PM MANGLE OPERATOR GARMENTS Seizure (HCC) POCT GLUCOSE DEVICE Routine 08/22/2024 6 :24 AM MANGLE OPERATOR GARMENTS POCT GLUCOSE DEVICE Routine 08/21/2024 6 :06 AM MANGLE OPERATOR GARMENTS POCT GLUCOSE DEVICE Routine 08/18/2024 5 :09 PM MANGLE OPERATOR GARMENTS POCT GLUCOSE DEVICE Routine 08/18/2024 1 1:18 AM MANGLE OPERATOR GARMENTS POCT GLUCOSE DEVICE Routine 08/18/2024 8 :02 AM MANGLE OPERATOR GARMENTS BRAIN, BRAIN STEM MAGNETIC RESONANCE (MR) IMAGING Schedule Routine, Read Routine (OP Routine) 08/12/2024 1:35 PM MANGLE OPERATOR GARMENTS XR CHEST 1 VIEW Schedule Routine, Read Routine (OP Routine) 08/11/2024 9:53 AM MANGLE OPERATOR GARMENTS US CAROTIDS DUPLEX BILATERAL Schedule Routine, Read Routine (OP Routine) 08/03/2024 8:46 AM MANGLE OPERATOR GARMENTS Carotid stenosis, asymptomatic, bilateral METHYLMALONIC ACID, SERUM Routine 08/03/2024 8:30 AM MANGLE OPERATOR GARMENTS Frequent falls Syncope, unspecified syncope type Memory impairment HOMOCYSTEINE Routine 08/03/2024 8:30 AM MANGLE OPERATOR GARMENTS Frequent falls Syncope, unspecified syncope type Memory impairment Essential (primary) hypertension VITAMIN B12 Routine 08/03/2024 8:30 AM MANGLE OPERATOR GARMENTS Frequent falls Syncope, unspecified syncope type Memory impairment HEAD COMPUTED TOMOGRAPHY (CT) WITHOUT CONTRAST Schedule Routine, Read Routine (OP Routine) 07/11/2024 9:14 AM MANGLE OPERATOR GARMENTS URINALYSIS, MICROSCOPIC ONLY Routine 07/02/2024 10:20 AM MANGLE OPERATOR GARMENTS Weakness generalized EGFR Routine 07/02/2024 10:20 AM MANGLE OPERATOR GARMENTS Weakness generalized DIFFERENTIAL AUTO Routine 07/02/2024 10: 20 AM MANGLE OPERATOR GARMENTS Weakness generalized CBC WITH AUTO DIFFERENTIAL Routine 07/02/2024 10:20 AM MANGLE OPERATOR GARMENTS Weakness generalized COMPREHENSIVE METABOLIC PANEL Routine 07/02/2024 10:20 AM MANGLE OPERATOR GARMENTS Weakness generalized ALBUMIN CREATININE RATIO, URINE Routine 07/02/2024 10:20 AM MANGLE OPERATOR GARMENTS Hypertension associated with diabetes (HCC) HEMOGLOBIN A1C Routine 07/02/2024 10:20 AM MANGLE OPERATOR GARMENTS Hypertension associated with diabetes (HCC) LAMOTRIGINE LEVEL Routine 07/02/2024 10: 20 AM MANGLE OPERATOR GARMENTS Seizure (HCC) LIPID PANEL Routine 07/02/2024 10:20 AM MANGLE OPERATOR GARMENTS Hypertension associated with diabetes (HCC) URINALYSIS AND REFLEX TO MICROSCOPIC AND CULTURE Routine 07/02/2024 10:20 AM MANGLE OPERATOR GARMENTS Weakness generalized XR SPINE LUMBAR 2 OR 3 VIEWS Schedule SHIRA, Read SHIRA (Appt Today, Awaiting Results) 06/18/2024 3:04 PM MANGLE OPERATOR GARMENTS Accidental fall, subsequent encounter XR HIP LEFT 2 OR 3 VIEWS Schedule SHIRA, Read SHIRA (Appt Today, Awaiting Results) 06/18/2024 3:04 PM MANGLE OPERATOR GARMENTS Accidental fall, subsequent encounter DIABETIC EYE EXAM Routine 06/25/2023 DEXA AXIAL SKELETON BONE DENSITY 1 OR MORE SITES Schedule Routine, Read Routine (OP Routine) 12/12/2022 2:33 PM CDT Screening for osteoporosis Asymptomatic menopausal state from Last 3 Months or Most Recently Relevant to Health Maintenance Results * (ABNORMAL) POCT urinalysis dipstick (09/13/2024 6:32 PM MANGLE OPERATOR GARMENTS) Color, Urine, POC Light Yellow Clarity, ur, POC Cloudy(A) Clear Glucose, ur, POC Negative Negative MG/DL Bilirubin, ur, POC Negative Negative, Small, Moderate, Large Ketones, ur, POC Negative Negative Specific [place], POC 1.005 1.003 - 1.030 Blood, ur, POC Moderate(A) Negative pH, ur, POC 6.5 5.0 - 8.0 Protein, ur, POC Negative Negative Urobilinogen, urine, POC 0.2 0.2 - 1.0 mg/dL Nitrite, ur, POC Negative Negative Leukocytes, ur, POC Trace(A) Negative Lot Number [id number] Urine 09/13/2024 6:32 PM MANGLE OPERATOR GARMENTS Pricilla Olguin NP POINT OF CARE TEST ORDERABLES F inal Result * BRAIN COMPUTED TOMOGRAPHY (CT) (08/25/2024 12:30 PM MANGLE OPERATOR GARMENTS) Anatomical Region Laterality Modality N/A Computed Tomogra phy Historical Provider MD GRAHAM CT PROCEDURES Final R esult * Continuous Video EEG -[facility] (08/23/2024 2:39 PM MANGLE OPERATOR GARMENTS) Anatomical Region Laterality Modality EEG Narrative 08/25/2024 7:12 PM MANGLE OPERATOR GARMENTS Video-EEG Report Patient Name: Radha Allen [facility] Medical Record Number (MRN): [id number] [facility] Record: [id number] Date of (): 1945 EEG Date: 08/17/2024 [...] digital EEG were recorded continuously with a [employer] EEG acquisition system. This was a 32 [...] Result * POCT glucose (08/22/2024 6:24 AM MANGLE OPERATOR GARMENTS) Glucose, POC 141 70 - 199 mg/dL Blood 08/22/2024 6:24 AM MANGLE OPERATOR GARMENTS 08/22/2024 6:24 AM MANGLE OPERATOR GARMENTS us Adria Diop MD LAB POCT ORD ERABLES - DEVICE Final Result Performing Organization Address [facility] de Phone Number [facility] [place] [address] * POCT glucose (08/21/2024 6:06 AM MANGLE OPERATOR GARMENTS) Glucose, POC 126 70 - 199 mg/dL Blood 08/21/2024 6:06 AM MANGLE OPERATOR GARMENTS 08/21/2024 6:06 AM MANGLE OPERATOR GARMENTS Adria Diop MD LAB POCT ORD ERABLES - DEVICE Final Result Performing Organization Address [facility] de Phone Number [facility] Department [place] [address] * POCT glucose (08/18/2024 5:09 PM MANGLE OPERATOR GARMENTS) Glucose, POC 99 70 - 199 mg/dL Blood 08/18/2024 5:09 PM MANGLE OPERATOR GARMENTS 08/18/2024 5:09 PM MANGLE OPERATOR GARMENTS Adria Diop MD LAB POCT ORD ERABLES - DEVICE Final Result Performing Organization Address [facility] Co de Phone Number [facility] [place] [address] * POCT glucose (08/18/2024 11:18 AM MANGLE OPERATOR GARMENTS) Glucose, POC 178 70 - 199 mg/dL Blood 08/18/2024 11:1 8 AM MANGLE OPERATOR GARMENTS 08/18/2024 11:18 AM MANGLE OPERATOR GARMENTS Adria Diop MD LAB POCT ORD ERABLES - DEVICE Final Result Performing Organization Address [facility] Co de Phone Number [facility] [place] [address] * POCT glucose (08/18/2024 8:02 AM MANGLE OPERATOR GARMENTS) Glucose, POC 130 70 - 199 mg/dL Blood 08/18/2024 8:02 AM MANGLE OPERATOR GARMENTS 08/18/2024 8:02 AM MANGLE OPERATOR GARMENTS Adria Diop MD LAB POCT ORD ERABLES - DEVICE Final Result Performing Organization Address [facility] de Phone Number [facility] Department [place] [address] * BRAIN, BRAIN STEM MAGNETIC RESONANCE (MR) IMAGING (08/12/2024 1:35 PM MANGLE OPERATOR GARMENTS) Anatomical Region Laterality Modality N/A Magnetic Resonan ce Historical Provider IMG MRI PROCEDURES Final Result * XR Chest 1 View (08/11/2024 9:53 AM MANGLE OPERATOR GARMENTS) Anatomical Region Laterality Modality Body, Chest N/A Radiographic Keyanna ging Historical Provider IMG XR PROCEDURES Final R esult * Vl US Carotids (08/03/2024 8:46 AM MANGLE OPERATOR GARMENTS) Anatomical Region Laterality Modality Vascular Bilateral Ultrasound 08/03/2024 8:26 AM MANGLE OPERATOR GARMENTS Narrative 08/03/2024 9:47 AM MANGLE OPERATOR GARMENTS Vascular & Vein Surgery [address] [place] [address] Carotid Duplex Ultrasound Report Patient Name: RADHA ALLEN K : 1945 (79y 4m) Study Date: 08/03/2024 8:26:13 AM Gender: F Rotary Kiln Operator: Location: [facility] Ref Provider: SERVANDO TORRE Quality: [...] above. Electronically Signed By: Gino Correa MD [facility] 08/03/2024 9:46:05 AM MANGLE OPERATOR GARMENTS Procedure Note Gino Correa MD - 08/03/2024 Vascular & Vein Surgery [address] [place] [address] Carotid Duplex Ultrasound Report Patient Name: RADHA ALLEN K : 1945 (79y 4m) Study Date: 08/03/2024 8:26:13 AM Gender: F Rotary Kiln Operator: Location: [facility] Ref Provider: SERVANDO TORRE Quality: Adequate [...] above. Electronically Signed By: Gino Correa MD [facility] 08/03/2024 9:46:05 AM MANGLE OPERATOR GARMENTS us Servando Torre MD [facility] US PROCEDURES Final Res ult * Methylmalonic acid, serum (08/03/2024 8:30 AM MANGLE OPERATOR GARMENTS) MMA 0.25 <=0.40 nmol/mL [place] [facility] Comment: ADDITIONAL INFORMATION This test was developed and its performance characteristics determined by [facility] in a manner consistent with CLIA requirements. This test has not been cleared or approved by the U.S. Food and Drug Administration. Test Performed by: [address] [address] Photo Producer: Liu Davis Ph.D.; IA# [id number] Blood 08/03/2024 8:30 AM MANGLE OPERATOR GARMENTS 08/03/2024 4:21 PM MANGLE OPERATOR GARMENTS Chelsie Francisco WAREDRESSER LAB BLOOD ORDERABLES F inal Result Performing Organization Address City/[facility] Co de Phone Number [facility] MATTHEW [address] [employer] [place], [place] [id number] [place] [facility] * Homocysteine (08/03/2024 8:30 AM MANGLE OPERATOR GARMENTS) Homocysteine 14.0 0.0 - 15.0 mcmol/L Comment:Testing performed by : [facility], [address] [place]., [address] Blood 08/03/2024 8:30 AM MANGLE OPERATOR GARMENTS 08/04/2024 10:21 AM MANGLE OPERATOR GARMENTS Chelsie Francisco WAREDRESSER LAB BLOOD ORDERABLES F inal Result Performing Organization Address [facility] Co de Phone Number [facility]LEEN TIFF [address] [employer] [place], [place] [id number] * Vitamin B12 (08/03/2024 8:30 AM MANGLE OPERATOR GARMENTS) Vitamin B12 350 230 - 1,250 pg/mL Blood 08/03/2024 8:30 AM MANGLE OPERATOR GARMENTS 08/03/2024 4:21 PM MANGLE OPERATOR GARMENTS Chelsie Francisco WAREDRESSER LAB BLOOD ORDERABLES F inal Result Performing Organization Address City/[facility]/ZIP Co de Phone Number ALBERT[facility]LALI MATTHEW [address] Department [employer] [place], [place] [id number] * HEAD COMPUTED TOMOGRAPHY (CT) WITHOUT CONTRAST (07/11/2024 9:14 AM MANGLE OPERATOR GARMENTS) Anatomical Region Laterality Modality N/A Computed Tomogra phy Marcell Rucker MD IMG CT PROCEDURES Final Result * eGFR (07/02/2024 10:20 AM MANGLE OPERATOR GARMENTS) eGFR 66 >=60 mL/min/1. 73 m2 Comment: [...] reviewed 2021. Blood 07/02/2024 10:2 0 AM MANGLE OPERATOR GARMENTS 07/02/2024 5:35 PM MANGLE OPERATOR GARMENTS us Kimberly Nicolas MD LAB BLOOD ORDERABLES Final Resu lt [facility] [address] Department of Laboratories [place], [place] [phone] * Differential, auto (07/02/2024 10:20 AM MANGLE OPERATOR GARMENTS) Neutrophil abs 5.1 1.5 - 6.5 K/cumm [...] on 2017. Blood 07/02/2024 10:2 0 AM MANGLE OPERATOR GARMENTS 07/02/2024 5:00 PM MANGLE OPERATOR GARMENTS us Kimberly Nicolas MD LAB BLOOD ORDERABLES Final Resu lt [facility] [address] Department [place] [address] * (ABNORMAL) Urinalysis reflex to microscopic and culture Urine, clean voided (07/02/2024 10:20 AM MANGLE OPERATOR GARMENTS) Color, ur Yellow Yellow Clarity, ur Clear Clear [facility] Specific gravity, ur 1.012 1.003 - 1.030 AILEEN pH, urine 6.5 [facility] Comment: Interpretive Data U rine pH is affected by diet, medications, systemic acid-base disturbances, and renal tubular function. pH may affect urinary stone formation. For example, urine pH below 6.0 may help reduce the tendency for calcium phosphate stones and pH greater than 6.0 may reduce the tendency for uric acid stone formation. Source: [facility] [place] Current Interpretive Data was last revised on [...] HOSPITAL Urine, clean voided 07/02/2024 10:20 AM MANGLE OPERATOR GARMENTS 07/02/2024 5:00 PM MANGLE OPERATOR GARMENTS us Kimberly Nicolas MD LAB MICROBIOLOGY - [facility] MIA LEARY Final Result [facility] [address] Department [place] [address] * (ABNORMAL) CBC with auto differential (07/02/2024 10:20 AM MANGLE OPERATOR GARMENTS) WBC 7.4 3.8 - 9.9 K/cumm Hgb 13.3 11.9 - 15.5 g/dL [facility] Hct 44.2 35.6 - 45.5 % [facility] Plt 296 150 - 400 K/cumm [facility] MPV 9.4 9.1 - 12.3 fL [facility] RBC 4.79 3.90 - 5.20 M/cumm [facility] MCV 92.3 81.3 - 96.4 fL [facility] MCH 27.8 27.1 - 33.3 pg [facility] MCHC 30.1(L) 32.3 - 35.7 g/dL [facility] RDW CV 13.0 11.1 - 14.9 % [facility] RDW SD 43.8 35.7 - 48.1 fL [facility] NRBC abs 0.00 0.00 - 0.01 K/cumm [facility] Blood 07/02/2024 10:2 0 AM MANGLE OPERATOR GARMENTS 07/02/2024 5:00 PM MANGLE OPERATOR GARMENTS Kimberly Nicolas MD LAB BLOOD ORDERABLES Final Resu lt Performing Organization Address [facility] Co de Phone Number [facility] MATTHEW [address] [address] [facility] [place] [address] * (ABNORMAL) Albumin Creatinine Ratio, Urine (07/02/2024 10:20 AM MANGLE OPERATOR GARMENTS) Albumin Ur 45.5 mg/L Comment: Interpretive Data No reference range established. Current interpretive data was last revised 2018. Creatinine Ur 73.7 mg/dL [facility] Comment: Interpretive Data No reference range established. Current interpretive data was last revised 2018. Albumin Creatinine Ratio, Ur 62(H) 1 - 29 mg/g [facility] Urine 07/02/2024 10:2 0 AM MANGLE OPERATOR GARMENTS 07/02/2024 5:00 PM MANGLE OPERATOR GARMENTS Servando Torre MD LAB URINE ORDERABLES Final Result Performing Organization Address [facility] Co nh Phone Number [facility] MATTHEW [address] [address] [facility] [place] [address] * Lamotrigine level (07/02/2024 10:20 AM MANGLE OPERATOR GARMENTS) Lamotrigine 9.6 3.0 - 15.0 mcg/mL [place] [facility] Comment: ADDITIONAL INFORMATION This test was developed and its performance characteristics determined by [facility] in a manner consistent with CLIA requirements. This test has not been cleared or approved by the U.S. Food and Drug Administration. Test Performed by: [facility] Laboratories - [address] [address] Photo Producer: Liu Davis Ph.D.; CLIA# [id number] Blood 07/02/2024 10:2 0 AM MANGLE OPERATOR GARMENTS 07/02/2024 5:00 PM MANGLE OPERATOR GARMENTS Result [facility] Servando Torre MD LAB BLOOD ORDERABLES Final Result Performing Organization Address [facility] de Phone Number [facility]LE[facility] [address] [address] [place] [address] [place] ref [facility] * (ABNORMAL) Urinalysis, microscopic only (07/02/2024 10:20 AM MANGLE OPERATOR GARMENTS) WBC, ur 6-10(A) 0 - 5 /HPF RBC, ur 3-5(A) 0 - 2 /HPF [facility] Epithelial cells, squamous, ur 1-5 0 - 5 /HPF [facility] Mucous, ur Present(A) [facility] Culture Reflex Comment Reflex conditions for urine culture (WBC >10) not met. [facility] Urine, clean voided 07/02/2024 10:20 AM MANGLE OPERATOR GARMENTS 07/02/2024 5:00 PM MANGLE OPERATOR GARMENTS Kimberly Nicolas MD LAB URINE ORDERABLES Final Resu lt Performing Organization Address [facility] Phone Number [facility] [address] [place] [address] * (ABNORMAL) Hemoglobin A1c (07/02/2024 10:20 AM MANGLE OPERATOR GARMENTS) Hgb A1C 6.4(H) 4.0 - 5.6 % Estimated Average Glucose 137 mg/dL [facility] Comment: The ADA recommends reporting an estimated Average Glucose (eAG) with all Hemoglobin A1c results using the equation derived from a study of 507 normal and diabetic adults. Minority populations were underrepresented and children were not included. (Diabetes Care 31:9463-5185, 2008). The eAG is not equivalent to a fasting glucose. Blood 07/02/2024 10:2 0 AM MANGLE OPERATOR GARMENTS 07/02/2024 5:00 PM MANGLE OPERATOR GARMENTS Servando Torre MD LAB BLOOD ORDERABLES Final Result Performing Organization Address [facility]/State/ZIP Co de Phone Number AILEEN MATTHEW [address] [facility] Department [place] [address] * (ABNORMAL) Lipid panel (07/02/2024 10:20 AM MANGLE OPERATOR GARMENTS) Cholesterol 190 30 - 199 mg/dL Comment: [...] AILEEN MATTHEW Blood 07/02/2024 10:2 0 AM MANGLE OPERATOR GARMENTS 07/02/2024 5:00 PM MANGLE OPERATOR GARMENTS us Servando Torre MD LAB BLOOD ORDERABLES Final Result AILEEN MATTHEW [address] Department [place] [address] * (ABNORMAL) Comprehensive metabolic panel (07/02/2024 10:20 AM MANGLE OPERATOR GARMENTS) Sodium 141 135 - 145 mmol/L Potassium, [...] CERNER CH Blood 07/02/2024 10:2 0 AM MANGLE OPERATOR GARMENTS 07/02/2024 5:00 PM MANGLE OPERATOR GARMENTS us Kimberly Nicolas MD LAB BLOOD ORDERABLES Final Resu lt AILEEN [address] [place] [address] * XR Spine Lumbar 2 or 3 Views (06/18/2024 3:04 PM MANGLE OPERATOR GARMENTS) Anatomical Region Laterality Modality Spine N/A Digital Radiogra phy 06/18/2024 5:05 PM MANGLE OPERATOR GARMENTS Narrative 06/18/2024 5:13 PM MANGLE OPERATOR GARMENTS EXAM DESCRIPTION: XR HIP LEFT 2 OR [...] no change from prior CT. There is xavq-vl-utnwckuv multilevel degenerative endplate change with no acute [...] 5:13 PM - Electronically signed by Teofilo ZAFRA T: Report ID: [id number] Reading Location: [id number] Procedure Note Teofilo Rand MD - 06/18/2024 [...] no change from prior CT. There is qeri-wi-exsjuxmm multilevel degenerative endplate change with no acute [...] Teofilo Rand M.D. MJ T: Report ID: [id number] Reading Location: [place] [address] Pricilla Olguin NP IMG XR PROCEDURES Final Result * XR Hip Left 2+ Vw (06/18/2024 3:04 PM MANGLE OPERATOR GARMENTS) Anatomical Region Laterality Modality Lower Extremities, Hip, Pelvis Left D igital Radiography 06/18/2024 5:05 PM MANGLE OPERATOR GARMENTS Narrative 06/18/2024 5:13 PM MANGLE OPERATOR GARMENTS EXAM DESCRIPTION: XR HIP LEFT 2 OR [...] no change from prior CT. There is pgru-dc-ruznvuhz multilevel degenerative endplate change with no acute [...] by Teofilo Melchor.D. MJ T: Report ID: [id number] Reading Location: [id number] Procedure Note Teofilo Rand MD - 06/18/2024 [...] no change from prior CT. There is ispr-yl-ehuddwhb multilevel degenerative endplate change with no acute [...] Teofilo Rand M.D. MJ T: Report ID: [id number] Reading Location: [place] [address] Pricilla Olguin NP IMG XR PROCEDURES Final Result * Diabetic Eye Exam (06/25/2023) Historical Provider HEALTH MAINTENANCE Final Result * Dexa Axial Skeleton Bone Density 1 or 2 Site (12/12/2022 2:33 PM CDT) Anatomical Region Laterality Modality Body N/A Radiographic Keyanna ging Narrative 12/12/2022 3:00 PM CDT Patient Name: Radah Allen Date of : 1945 Date of scan: 12/12/2022 Bone mineral density was performed on a [employer]assoft Discovery Densitometer. Based on machine cross-calibration and [...] by the International Society of Clinical Densitometry. 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
--- OUTSIDE RECORDS SUMMARY | 2024-09-13 21:19 | XMS_ITS | Referral Summary ---
Author Organization [facility] Address [address] [place] [phone] Care Team Providers Care Privacy Specialist Name Role Phone Servando Torre MD Primary Care Provider [phone] Mariela Denton MD Unavailable [phone] Lexis Barroso OD Unavailable [phone] Kristopher Hopson RN Unavailable [phone] Encounters Date Type Department Care Team Description 09/13/2024 6:00 PM EQUINE PHARMACOLOGY TECHNICIAN Office Visit [facility] Convenient Care at [address] [phone] Pricilla Olguin NP Urinary incontinence, unspecified type (Primary Dx); Bradycardia; Confusion 09/02/2024 1:15 PM EQUINE PHARMACOLOGY TECHNICIAN Office Visit [facility] Orthopedic and Sports Medicine [address] [place] [phone] Riri Gonzalez PA 08/31/2024 Telephone [facility] [address]th [place] [address] [place] [address] Ayala Mobley RN 08/26/2024 Telephone [facility] Primary Care at [address] [phone] Servando Torre MD Appointment Request 08/26/2024 Orders Only [facility] Primary Care at [address] [phone] Silvestre Ahn MD 08/24/2024 Telephone [facility] Epilepsy [address] [facility] 6th [place] [phone] Adria Burleson MD Medication Problem; Med Management; Seizures; Referral Request 08/17/2024 8:26 AM EQUINE PHARMACOLOGY TECHNICIAN - 08/23/2024 5:10 PM EQUINE PHARMACOLOGY TECHNICIAN Hospital Encounter [address] [phone] Adria Burleson MD Discharge Disposition: Discharge to home or self care 08/17/2024 8:00 AM EQUINE PHARMACOLOGY TECHNICIAN Ancillary Procedure [address] [phone] Rene De La O MT Seizure ([facility]) 08/16/2024 Orders Only [facility] Primary Care at [address] [phone] Silvestre Ahn MD 08/13/2024 Telephone [facility] Neurodiagnostics [address] [place] [phone] Karen Lee 08/12/2024 Telephone [facility] [address] [facility] 6th [place] [phone] Ute Miller MD 08/12/2024 Orders Only [facility] Primary Care at [address] [phone] Silvestre Ahn MD 08/03/2024 4:00 PM EQUINE PHARMACOLOGY TECHNICIAN - 08/03/2024 11:59 PM EQUINE PHARMACOLOGY TECHNICIAN Hospital Encounter [address] [address] Frequent falls; Syncope, unspecified syncope type; Memory impairment; Essential (primary) hypertension Discharge Disposition: Discharge to home or self care 08/03/2024 8:45 AM EQUINE PHARMACOLOGY TECHNICIAN Lab [facility] Outpatient Lab at [address] [phone] 08/03/2024 8:00 AM EQUINE PHARMACOLOGY TECHNICIAN Ancillary Procedure [facility] Vascular and Vein Surgery at [address] [place] [phone] Carotid stenosis, asymptomatic, bilateral 07/28/2024 Orders Only [facility] [address] [facility] 6th Floor [address] [place] [address] Chelsie Francisco NP 07/24/2024 Orders Only [facility] [address] [facility] 6th [address] [place] [phone] Chelsie Francisco NP Frequent falls (Primary Dx); Syncope, unspecified syncope type; Memory impairment; Essential (primary) hypertension; Sleep walking 07/22/2024 7:00 PM EQUINE PHARMACOLOGY TECHNICIAN Office Visit [facility] Con[facility]ient Care at [address] [phone] Lexis Chaves PA Encounter for staple removal (Primary Dx) 07/14/2024 Telephone [facility] Primary Care at [address] [phone] Servando Torre MD CT Results 07/12/2024 Orders Only [address] [place] [phone] Chelsie Francisco NP 07/12/2024 Orders Only [facility] Primary Care at [address] [phone] Marcell Rucker MD 07/09/2024 Telephone [place] [address] 6th [place] [address] [place] [address] Adria Burleson MD Medication Problem; Request For Order(s) 07/08/2024 3:15 PM EQUINE PHARMACOLOGY TECHNICIAN Office Visit [facility] [address] [facility] 6th Floor [address] [place] [phone] Chelsie Francisco NP Somnolence, daytime (Primary Dx); Memory impairment; Frequent falls; Anxiety 07/05/2024 3:00 PM EQUINE PHARMACOLOGY TECHNICIAN Office Visit [facility] Primary Care at [address] [phone] Servando Torre MD Encounter for Medicare annual wellness exam (Primary Dx); Mixed diabetic hyperlipidemia associated with type 2 diabetes mellitus (HCC); Hypertension associated with diabetes (HCC); Gastroesophageal reflux disease without esophagitis; At risk for falls; Carotid stenosis, asymptomatic, bilateral 07/02/2024 10:20 AM EQUINE PHARMACOLOGY TECHNICIAN - 07/02/2024 11:59 PM EQUINE PHARMACOLOGY TECHNICIAN Hospital Encounter [address] [address] Hypertension associated with diabetes ([facility]); Seizure (HCC); Weakness generalized Discharge Disposition: Discharge to home or self care 07/02/2024 10:15 AM EQUINE PHARMACOLOGY TECHNICIAN Lab [facility] Outpatient Lab at [address] [phone] Encounter for Medicare annual wellness exam (Primary Dx) 06/29/2024 Orders Only [facility] [address] [facility] 6th [address] [place] [phone] Kimberly Nicolas MD Weakness generalized (Primary Dx) 06/18/2024 3:00 PM EQUINE PHARMACOLOGY TECHNICIAN Ancillary Procedure [facility] Imaging at [address] [phone] Accidental fall, subsequent encounter 06/18/2024 2:55 PM EQUINE PHARMACOLOGY TECHNICIAN Ancillary Procedure [facility] Imaging at [address] [phone] Accidental fall, subsequent encounter 06/18/2024 2:30 PM EQUINE PHARMACOLOGY TECHNICIAN Office Visit [facility] Convenient Care at [address] [phone] Pricilla Olguin NP Accidental fall, subsequent encounter [...] Infused at: [facility] ([facility] order in [facility] under 'Procedures' tab). 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 [...] 05/29 Assessment & Plan (07/05/2024 3:20 PM EQUINE PHARMACOLOGY TECHNICIAN): A(n) yearly Medicare Annual Wellness Visit [...] months Assessment & Plan (06/26/2023 2:02 PM EQUINE PHARMACOLOGY TECHNICIAN): A(n) yearly Medicare Annual Wellness Visit [...] months Assessment & Plan (06/23/2022 3:06 PM EQUINE PHARMACOLOGY TECHNICIAN): A(n) initial Medicare Annual Wellness Visit [...] (06/19/2022): Added automatically from request for surgery [id number] Ear ringing 03/03/2013 Asymmetrical sensorineural hearing loss 03/03/20 13 Stress fracture 07/07/2012 Arthralgia of hip 02/06/2011 Resolved Problems Problem Noted Date Diagnosed Date Resolved Date Hospital discharge follow-up 06/11/2023 08/07/2023 Assessment & Plan (06/11/2023 1:42 PM EQUINE PHARMACOLOGY TECHNICIAN): I have reviewed the hospital record, [...] Patient Refused),07/28/2022(Deferred: Patient Refused),05/06/2022,07/28/2021(Deferre d: Patient Refused) [employer] Sars-Cov-2 Bivalent V accination (12+ YRS) 05/30/2022 [...] on file Legal Sex Female 9:30 AM EQUINE PHARMACOLOGY TECHNICIAN Gender Identity Female 04/05/2022 6:17 PM CDT Sexual Orientation Straight 04/05/2022 6: 17 PM CDT Last Filed Vital Signs Vital Sign Reading Time Taken Comments Blood Pressure 138/62 09/13/2024 6:27 PM EQUINE PHARMACOLOGY TECHNICIAN Pulse 39 09/13/2024 6:47 PM EQUINE PHARMACOLOGY TECHNICIAN Temperature 36.9 C (98.5 F) 09/13/2024 6:27 PM EQUINE PHARMACOLOGY TECHNICIAN Respiratory Rate 24 09/13/2024 6:27 PM EQUINE PHARMACOLOGY TECHNICIAN Oxygen Saturation 91% 09/13/2024 6:47 PM EQUINE PHARMACOLOGY TECHNICIAN Inhaled Oxygen Concentration - - Weight 63.5 kg (140 lb) 09/13/2024 6:27 PM EQUINE PHARMACOLOGY TECHNICIAN Height 157.5 cm (5' 2 ) 09/02/2024 1:14 PM EQUINE PHARMACOLOGY TECHNICIAN Body Mass Index 25.61 09/02/2024 1:14 PM EQUINE PHARMACOLOGY TECHNICIAN Plan of Treatment Not on file Procedures Procedure Name Priority Date/Time Associated Diagnosis Comments POCT URINALYSIS DIPSTICK Routine 09/13/2024 6:32 PM EQUINE PHARMACOLOGY TECHNICIAN Urinary incontinence, unspecified type BRAIN COMPUTED TOMOGRAPHY (CT) Schedule Routine, Read Routine (OP Routine) 08/25/2024 12:30 PM EQUINE PHARMACOLOGY TECHNICIAN CONTINUOUS VIDEO EEG Routine 08/23/2024 2:39 PM EQUINE PHARMACOLOGY TECHNICIAN Seizure (HCC) POCT GLUCOSE DEVICE Routine 08/22/2024 6 :24 AM EQUINE PHARMACOLOGY TECHNICIAN POCT GLUCOSE DEVICE Routine 08/21/2024 6 :06 AM EQUINE PHARMACOLOGY TECHNICIAN POCT GLUCOSE DEVICE Routine 08/18/2024 5 :09 PM EQUINE PHARMACOLOGY TECHNICIAN POCT GLUCOSE DEVICE Routine 08/18/2024 1 1:18 AM EQUINE PHARMACOLOGY TECHNICIAN POCT GLUCOSE DEVICE Routine 08/18/2024 8 :02 AM EQUINE PHARMACOLOGY TECHNICIAN BRAIN, BRAIN STEM MAGNETIC RESONANCE (MR) IMAGING Schedule Routine, Read Routine (OP Routine) 08/12/2024 1:35 PM EQUINE PHARMACOLOGY TECHNICIAN XR CHEST 1 VIEW Schedule Routine, Read Routine (OP Routine) 08/11/2024 9:53 AM EQUINE PHARMACOLOGY TECHNICIAN US CAROTIDS DUPLEX BILATERAL Schedule Routine, Read Routine (OP Routine) 08/03/2024 8:46 AM EQUINE PHARMACOLOGY TECHNICIAN Carotid stenosis, asymptomatic, bilateral METHYLMALONIC ACID, SERUM Routine 08/03/2024 8:30 AM EQUINE PHARMACOLOGY TECHNICIAN Frequent falls Syncope, unspecified syncope type Memory impairment HOMOCYSTEINE Routine 08/03/2024 8:30 AM EQUINE PHARMACOLOGY TECHNICIAN Frequent falls Syncope, unspecified syncope type Memory impairment Essential (primary) hypertension VITAMIN B12 Routine 08/03/2024 8:30 AM EQUINE PHARMACOLOGY TECHNICIAN Frequent falls Syncope, unspecified syncope type Memory impairment HEAD COMPUTED TOMOGRAPHY (CT) WITHOUT CONTRAST Schedule Routine, Read Routine (OP Routine) 07/11/2024 9:14 AM EQUINE PHARMACOLOGY TECHNICIAN URINALYSIS, MICROSCOPIC ONLY Routine 07/02/2024 10:20 AM EQUINE PHARMACOLOGY TECHNICIAN Weakness generalized EGFR Routine 07/02/2024 10:20 AM EQUINE PHARMACOLOGY TECHNICIAN Weakness generalized DIFFERENTIAL AUTO Routine 07/02/2024 10: 20 AM EQUINE PHARMACOLOGY TECHNICIAN Weakness generalized CBC WITH AUTO DIFFERENTIAL Routine 07/02/2024 10:20 AM EQUINE PHARMACOLOGY TECHNICIAN Weakness generalized COMPREHENSIVE METABOLIC PANEL Routine 07/02/2024 10:20 AM EQUINE PHARMACOLOGY TECHNICIAN Weakness generalized ALBUMIN CREATININE RATIO, URINE Routine 07/02/2024 10:20 AM EQUINE PHARMACOLOGY TECHNICIAN Hypertension associated with diabetes (HCC) HEMOGLOBIN A1C Routine 07/02/2024 10:20 AM EQUINE PHARMACOLOGY TECHNICIAN Hypertension associated with diabetes (HCC) LAMOTRIGINE LEVEL Routine 07/02/2024 10: 20 AM EQUINE PHARMACOLOGY TECHNICIAN Seizure (HCC) LIPID PANEL Routine 07/02/2024 10:20 AM EQUINE PHARMACOLOGY TECHNICIAN Hypertension associated with diabetes (HCC) URINALYSIS AND REFLEX TO MICROSCOPIC AND CULTURE Routine 07/02/2024 10:20 AM EQUINE PHARMACOLOGY TECHNICIAN Weakness generalized XR SPINE LUMBAR 2 OR 3 VIEWS Schedule SHIRA, Read SHIRA (Appt Today, Awaiting Results) 06/18/2024 3:04 PM EQUINE PHARMACOLOGY TECHNICIAN Accidental fall, subsequent encounter XR HIP LEFT 2 OR 3 VIEWS Schedule SHIRA, Read SHIRA (Appt Today, Awaiting Results) 06/18/2024 3:04 PM EQUINE PHARMACOLOGY TECHNICIAN Accidental fall, subsequent encounter DIABETIC EYE EXAM Routine 06/25/2023 DEXA AXIAL SKELETON BONE DENSITY 1 OR MORE SITES Schedule Routine, Read Routine (OP Routine) 12/12/2022 2:33 PM CDT Screening for osteoporosis Asymptomatic menopausal state from Last 3 Months or Most Recently Relevant to Health Maintenance Results * (ABNORMAL) POCT urinalysis dipstick (09/13/2024 6:32 PM EQUINE PHARMACOLOGY TECHNICIAN) Color, Urine, POC Light Yellow Clarity, ur, POC Cloudy(A) Clear Glucose, ur, POC Negative Negative MG/DL Bilirubin, ur, POC Negative Negative, Small, Moderate, Large Ketones, ur, POC Negative Negative Specific [place], POC 1.005 1.003 - 1.030 Blood, ur, POC Moderate(A) Negative pH, ur, POC 6.5 5.0 - 8.0 Protein, ur, POC Negative Negative Urobilinogen, urine, POC 0.2 0.2 - 1.0 mg/dL Nitrite, ur, POC Negative Negative Leukocytes, ur, POC Trace(A) Negative Lot Number [id number] Urine 09/13/2024 6:32 PM EQUINE PHARMACOLOGY TECHNICIAN Pricilla Olguin NP POINT OF CARE TEST ORDERABLES F inal Result * BRAIN COMPUTED TOMOGRAPHY (CT) (08/25/2024 12:30 PM EQUINE PHARMACOLOGY TECHNICIAN) Anatomical Region Laterality Modality N/A Computed Tomogra phy Historical Provider IMG CT PROCEDURES Final R esult * Continuous Video EEG -[facility] (08/23/2024 2:39 PM EQUINE PHARMACOLOGY TECHNICIAN) Anatomical Region Laterality Modality EEG Narrative 08/25/2024 7:12 PM EQUINE PHARMACOLOGY TECHNICIAN Video-EEG Report Patient Name: Radha Allen [facility] Medical Record Number (MRN): [id number] [facility] Record: [id number] Date of (): 1945 EEG Date: 08/17/2024 [...] digital EEG were recorded continuously with a Minutta EEG acquisition system. This was a 32 [...] Result * POCT glucose (08/22/2024 6:24 AM EQUINE PHARMACOLOGY TECHNICIAN) Glucose, POC 141 70 - 199 mg/dL Blood 08/22/2024 6:24 AM EQUINE PHARMACOLOGY TECHNICIAN 08/22/2024 6:24 AM EQUINE PHARMACOLOGY TECHNICIAN Adria Diop MD LAB POCT ORD ERABLES - DEVICE Final Result [facility] [place] [address] * POCT glucose (08/21/2024 6:06 AM EQUINE PHARMACOLOGY TECHNICIAN) Glucose, POC 126 70 - 199 mg/dL Blood 08/21/2024 6:06 AM EQUINE PHARMACOLOGY TECHNICIAN 08/21/2024 6:06 AM EQUINE PHARMACOLOGY TECHNICIAN Adria Doip MD LAB POCT ORD ERABLES - DEVICE Final Result Performing Organization Address City/[facility] [place] [address] * POCT glucose (08/18/2024 5:09 PM EQUINE PHARMACOLOGY TECHNICIAN) Glucose, POC 99 70 - 199 mg/dL Blood 08/18/2024 5:09 PM EQUINE PHARMACOLOGY TECHNICIAN 08/18/2024 5:09 PM EQUINE PHARMACOLOGY TECHNICIAN Adria Diop MD LAB POCT ORD ERABLES - DEVICE Final Result Performing Organization Address [facility] [place] [address] * POCT glucose (08/18/2024 11:18 AM EQUINE PHARMACOLOGY TECHNICIAN) Glucose, POC 178 70 - 199 mg/dL Blood 08/18/2024 11:1 8 AM EQUINE PHARMACOLOGY TECHNICIAN 08/18/2024 11:18 AM EQUINE PHARMACOLOGY TECHNICIAN Adria Diop MD LAB POCT ORD ERABLES - DEVICE Final Result Performing Organization Address [facility] [place] [address] * POCT glucose (08/18/2024 8:02 AM EQUINE PHARMACOLOGY TECHNICIAN) Glucose, POC 130 70 - 199 mg/dL Blood 08/18/2024 8:02 AM EQUINE PHARMACOLOGY TECHNICIAN 08/18/2024 8:02 AM EQUINE PHARMACOLOGY TECHNICIAN Adria Diop MD LAB POCT ORD ERABLES - DEVICE Final Result AILEEN [facility] [place] [address] * BRAIN, BRAIN STEM MAGNETIC RESONANCE (MR) IMAGING (08/12/2024 1:35 PM EQUINE PHARMACOLOGY TECHNICIAN) Anatomical Region Laterality Modality N/A Magnetic Resonan ce Historical Provider IMG MRI PROCEDURES Final Result * XR Chest 1 View (08/11/2024 9:53 AM EQUINE PHARMACOLOGY TECHNICIAN) Anatomical Region Laterality Modality Body, Chest N/A Radiographic Keyanna ging Historical Provider MD GRAHAM XR PROCEDURES Final R esult * Vl US Carotids (08/03/2024 8:46 AM EQUINE PHARMACOLOGY TECHNICIAN) Anatomical Region Laterality Modality Vascular Bilateral Ultrasound 08/03/2024 8:26 AM EQUINE PHARMACOLOGY TECHNICIAN Narrative 08/03/2024 9:47 AM EQUINE PHARMACOLOGY TECHNICIAN Vascular & Vein Surgery [address] [place] [address] Carotid Duplex Ultrasound Report Patient Name: RADHA ALLEN K : 1945 (79y 4m) Study Date: 08/03/2024 8:26:13 AM Gender: F Service Member: CAMILO Location: [facility] Ref Provider: SERVANDO TORRE Quality: Adequate [...] above. Electronically Signed By: Gino Correa MD [facility] 08/03/2024 9:46:05 AM EQUINE PHARMACOLOGY TECHNICIAN Procedure Note Gino Correa MD - 08/03/2024 Vascular & Vein Surgery [address] [place] [address] Carotid Duplex Ultrasound Report Patient Name: RADHA ALLEN K : 1945 (79y 4m) Study Date: 08/03/2024 8:26:13 AM Gender: F Service Member: Location: [facility] Provider: SERVANDO TORRE Quality: Adequate Order [...] above. Electronically Signed By: Gino Correa MD [facility] 08/03/2024 9:46:05 AM EQUINE PHARMACOLOGY TECHNICIAN us Servando Torre MD [facility] US PROCEDURES Final Res ult * Methylmalonic acid, serum (08/03/2024 8:30 AM EQUINE PHARMACOLOGY TECHNICIAN) MMA 0.25 <=0.40 nmol/mL [facility] Comment: ADDITIONAL INFORMATION This test was developed and its performance characteristics determined by [facility] in a manner consistent with CLIA requirements. This test has not been cleared or approved by the U.S. Food and Drug Administration. Test Performed by: [facility] Laboratories - [address] [address] Criminal Justice Social Worker: Liu Davis Ph.D.; CLIA# [id number] Blood 08/03/2024 8:30 AM EQUINE PHARMACOLOGY TECHNICIAN 08/03/2024 4:21 PM EQUINE PHARMACOLOGY TECHNICIAN us Chelsie Francisco NP LAB BLOOD ORDERABLES F inal Result [facility] [address] [place] [address] [facility] * Homocysteine (08/03/2024 8:30 AM EQUINE PHARMACOLOGY TECHNICIAN) [facility] Homocysteine 14.0 0.0 - 15.0 mcmol/L Comment:Testing performed by : [facility], [address] [facility], [place]., [address] Blood 08/03/2024 8:30 AM EQUINE PHARMACOLOGY TECHNICIAN 08/04/2024 10:21 AM EQUINE PHARMACOLOGY TECHNICIAN Chelsie Francisco [employer] LAB BLOOD ORDERABLES F inal Result Performing Organization Address City/[facility]/ZIP Co de Phone Number AILEEN MATTHEW [address] [place] [address] * Vitamin B12 (08/03/2024 8:30 AM EQUINE PHARMACOLOGY TECHNICIAN) [facility] Vitamin B12 350 230 - 1,250 pg/mL Blood 08/03/2024 8:30 AM EQUINE PHARMACOLOGY TECHNICIAN 08/03/2024 4:21 PM EQUINE PHARMACOLOGY TECHNICIAN Chelsie Francisco [employer] LAB BLOOD ORDERABLES F inal Result Performing Organization Address [facility] Co de Phone Number AILEEN MATTHEW [address] [place] [address] * HEAD COMPUTED TOMOGRAPHY (CT) WITHOUT CONTRAST (07/11/2024 9:14 AM EQUINE PHARMACOLOGY TECHNICIAN) Anatomical Region Laterality Modality N/A Computed Tomogra phy Marcell Rucker MD IMG CT PROCEDURES Final Result * eGFR (07/02/2024 10:20 AM EQUINE PHARMACOLOGY TECHNICIAN) [facility] eGFR 66 >=60 mL/min/1. 73 m2 [...] reviewed 2021. Blood 07/02/2024 10:2 0 AM EQUINE PHARMACOLOGY TECHNICIAN 07/02/2024 5:35 PM EQUINE PHARMACOLOGY TECHNICIAN us Kimberly Nicolas MD LAB BLOOD ORDERABLES Final Resu lt [facility] [address] [place] [address] * Differential, auto (07/02/2024 10:20 AM EQUINE PHARMACOLOGY TECHNICIAN) Neutrophil abs 5.1 1.5 - 6.5 K/cumm Imm gran abs 0.0 0.0 - 0.1 K/cumm [facility] Lymphocyte abs 1.4 0.8 - 3.3 K/cumm [facility] Monocyte abs 0.7 0.2 - 0.8 K/cumm [facility] Eosinophil abs 0.3 0.0 - 0.5 K/cumm [facility] Basophil abs 0.0 0.0 - 0.1 K/cumm [facility] Neutrophil pct 68.0 % [facility] Comment: Interpretive Data Percent cell count [...] revised on 2017. Lymphocyte pct 18.7 % [facility] Comment: Interpretive Data Percent cell count [...] on 2017. Blood 07/02/2024 10:2 0 AM EQUINE PHARMACOLOGY TECHNICIAN 07/02/2024 5:00 PM EQUINE PHARMACOLOGY TECHNICIAN us Kimberly Nicolas MD LAB BLOOD ORDERABLES Final Resu lt [facility] [address] Department of Laboratories [place], [place] [id number] * (ABNORMAL) Urinalysis reflex to microscopic and culture Urine, clean voided (07/02/2024 10:20 AM EQUINE PHARMACOLOGY TECHNICIAN) Color, ur Yellow Yellow Clarity, ur [...] for uric acid stone formation. Source: [facility] [employer] Current Interpretive Data was last revised on [...] CH Urine, clean voided 07/02/2024 10:20 AM EQUINE PHARMACOLOGY TECHNICIAN 07/02/2024 5:00 PM EQUINE PHARMACOLOGY TECHNICIAN Kimberly Nicolas MD LAB MICROBIOLOGY - [facility] Final Result Performing Organization Address [facility]/ZIP Co de Phone Number AILEEN MATTHEW [address] Department [employer] [place] [address] * (ABNORMAL) CBC with auto differential (07/02/2024 10:20 AM EQUINE PHARMACOLOGY TECHNICIAN) WBC 7.4 3.8 - 9.9 K/cumm [...] CERNER CH Blood 07/02/2024 10:2 0 AM EQUINE PHARMACOLOGY TECHNICIAN 07/02/2024 5:00 PM EQUINE PHARMACOLOGY TECHNICIAN Kimberly Nicolas MD LAB BLOOD ORDERABLES Final Resu lt Performing Organization Address [facility]/ZIP Co de Phone Number AILEEN MATTHEW [address] [place] [address] * (ABNORMAL) Albumin Creatinine Ratio, Urine (07/02/2024 10:20 AM EQUINE PHARMACOLOGY TECHNICIAN) Albumin Ur 45.5 mg/L Comment: Interpretive Data No reference range established. Current interpretive data was last revised 2018. Creatinine Ur 73.7 mg/dL [facility] Comment: Interpretive Data No reference range established. Current interpretive data was last revised 2018. Albumin Creatinine Ratio, Ur 62(H) 1 - 29 mg/g [facility] Urine 07/02/2024 10:2 0 AM EQUINE PHARMACOLOGY TECHNICIAN 07/02/2024 5:00 PM EQUINE PHARMACOLOGY TECHNICIAN Servando Torre MD LAB URINE ORDERABLES Final Result Performing Organization Address [facility] Phone Number AILEEN [address] [address] * Lamotrigine level (07/02/2024 10:20 AM EQUINE PHARMACOLOGY TECHNICIAN) Pathologist [facility] Lamotrigine 9.6 3.0 - 15.0 mcg/mL [facility] ref [facility] Comment: ADDITIONAL INFORMATION This test was developed and its performance characteristics determined by [facility] in a manner consistent with CLIA requirements. This test has not been cleared or approved by the U.S. Food and Drug Administration. Test Performed by: [facility] [place] [address] Criminal Justice Social Worker: Liu Davis Ph.D.; CLIA# [id number] Blood 07/02/2024 10:2 0 AM EQUINE PHARMACOLOGY TECHNICIAN 07/02/2024 5:00 PM EQUINE PHARMACOLOGY TECHNICIAN Servando Torre MD LAB BLOOD ORDERABLES Final Result Performing Organization Address [facility] Phone Number [facility] [address] [facility] [employer] [place], [place] [id number] [facility] ref [facility] * (ABNORMAL) Urinalysis, microscopic only (07/02/2024 10:20 AM EQUINE PHARMACOLOGY TECHNICIAN) WBC, ur 6-10(A) 0 - 5 /HPF RBC, ur 3-5(A) 0 - 2 /HPF [facility] Epithelial cells, squamous, ur 1-5 0 - 5 /HPF [facility] Mucous, ur Present(A) [facility] Culture Reflex Comment Reflex conditions for urine culture (WBC >10) not met. [facility] Urine, clean voided 07/02/2024 10:20 AM EQUINE PHARMACOLOGY TECHNICIAN 07/02/2024 5:00 PM EQUINE PHARMACOLOGY TECHNICIAN Kimberly Nicolas MD LAB URINE ORDERABLES Final Resu lt Performing Organization Address [facility] Co de Phone Number [facility] [address] [place] [address] * (ABNORMAL) Hemoglobin A1c (07/02/2024 10:20 AM EQUINE PHARMACOLOGY TECHNICIAN) Hgb A1C 6.4(H) 4.0 - 5.6 % Estimated Average Glucose 137 mg/dL [facility] Comment: The ADA recommends reporting an estimated Average Glucose (eAG) with all Hemoglobin A1c results using the equation derived from a study of 507 normal and diabetic adults. Minority populations were underrepresented and children were not included. (Diabetes Care 31:4335-5092, 2008). The eAG is not equivalent to a fasting glucose. Blood 07/02/2024 10:2 0 AM EQUINE PHARMACOLOGY TECHNICIAN 07/02/2024 5:00 PM EQUINE PHARMACOLOGY TECHNICIAN Servando Torre MD LAB BLOOD ORDERABLES Final Result Performing Organization Address [facility] Co de Phone Number [facility] [address] Department [place] [address] * (ABNORMAL) Lipid panel (07/02/2024 10:20 AM EQUINE PHARMACOLOGY TECHNICIAN) Cholesterol 190 30 - 199 mg/dL [...] CERNER CH Blood 07/02/2024 10:2 0 AM EQUINE PHARMACOLOGY TECHNICIAN 07/02/2024 5:00 PM EQUINE PHARMACOLOGY TECHNICIAN Servando Torre MD LAB BLOOD ORDERABLES Final Result [facility] [address] [place] [address] * (ABNORMAL) Comprehensive metabolic panel (07/02/2024 10:20 AM EQUINE PHARMACOLOGY TECHNICIAN) Sodium 141 135 - 145 mmol/L [...] CERNER CH Blood 07/02/2024 10:2 0 AM EQUINE PHARMACOLOGY TECHNICIAN 07/02/2024 5:00 PM EQUINE PHARMACOLOGY TECHNICIAN us Kimberly Nicolas MD LAB BLOOD ORDERABLES Final Resu lt [facility]LE[facility] MATTHEW [address] [place] [address] * XR Spine Lumbar 2 or 3 Views (06/18/2024 3:04 PM EQUINE PHARMACOLOGY TECHNICIAN) Anatomical Region Laterality Modality Spine N/A Digital Radiogra phy 06/18/2024 5:05 PM EQUINE PHARMACOLOGY TECHNICIAN Narrative 06/18/2024 5:13 PM EQUINE PHARMACOLOGY TECHNICIAN EXAM DESCRIPTION: XR HIP LEFT 2 [...] no change from prior CT. There is yowk-or-ysitdber multilevel degenerative endplate change with no acute [...] Teofilo Rand M.D. MJ T: Report ID: [id number] Reading Location: [id number] Procedure Note Teofilo Rand MD - 06/18/2024 [...] no change from prior CT. There is edhh-pe-fuyiufpi multilevel degenerative endplate change with no acute [...] Teofilo Rand M.D. MJ T: Report ID: [id number] Reading Location: [place] [address] us Pricilla Olguin NP IMG XR PROCEDURES Final Result * XR Hip Left 2+ Vw (06/18/2024 3:04 PM EQUINE PHARMACOLOGY TECHNICIAN) Anatomical Region Laterality Modality Lower Extremities, Hip, Pelvis Left D igital Radiography 06/18/2024 5:05 PM EQUINE PHARMACOLOGY TECHNICIAN Narrative 06/18/2024 5:13 PM EQUINE PHARMACOLOGY TECHNICIAN EXAM DESCRIPTION: XR HIP LEFT 2 [...] no change from prior CT. There is smmj-pu-rqkuuugi multilevel degenerative endplate change with no acute [...] Teofilo Rand M.D. MJ T: Report ID: [id number] Reading Location: [id number] Procedure Note Teofilo Rand MD - 06/18/2024 [...] no change from prior CT. There is tdqg-ph-phepgbwr multilevel degenerative endplate change with no acute [...] Teofilo Rand M.D. MJ T: Report ID: [id number] Reading Location: [place] [address] Pricilla Olguin NP IMG XR PROCEDURES Final [...] Bone mineral density was performed on a [employer] Discovery Densitometer. Based on machine cross-calibration and [...] by the International Society of Clinical Densitometry. [id number] Servando Torre MD IMG DXA PROCEDURES Final Re sult from Last 3 Months or Most Recently Relevant to Health Maintenance Insurance MEDICARE [facility] MEDICARE SUPPLEMENT MEDICARE [employer] MEDICARE SUPPLEMENT MEDICARE [facility] MEDICARE [facility] Advance Directives For more information, please contact: [phone] * Full Code (Latest Code Status on [...] 9:30 AM 11/29/2022 3:28 PM Care Teams Privacy Specialist Relationship Specialty Start Date End Date Servando Torre MD [address] [facility] [address] [place] [address] PCP - General Family Medicine 06/19/22 Mariela Denton MD [address] [place] [address] Referring Physician Gastroenterology 06/19/22 Lexis Barroso OD [address], [place] [address] Maintenance Data Analyst 09/19/22 Kristopher Hopson, ELMO [address] [facility] [address] [place] [address] Tube Bending Machine Operator 08/25/24
[2024-09-13 21:46] LABS: Influenza A QL RT-PCR Negative (Negative); Influenza B QL RT-PCR Negative (Negative); RSV RNA, RT-PCR Negative (Negative); SARS-CoV-2 RNA PCR Negative (Negative)
--- NOTE | 2024-09-13 22:08 | ED.GENADULT ---
HPI - General Adult General Chief complaint: Weakness Stated complaint: Bradycardia Time Seen by Provider: 09/13/24 21:06 History of Present Illness HPI narrative: This is an 79-year-old female vascular dementia presenting for weakness. Patient is A&O times 1-2 at baseline. Family notes that she has been more weak over the last couple days. She has had some shortness of breath on exertion. She has not had any fevers chills nausea vomiting diarrhea chest pain difficulty breathing abdominal pain or urinary symptoms. Home health was there to see her today and noticed that she had a heart rate in the 40s with no prior history. She was then sent to the ED for evaluation. patient is on metoprolol. Related Data Home Medications ?Medication ?Instructions ?Recorded ?Confirmed ?Last Taken ?Type amlodipine 5 mg tablet 5 mg PO DAILY 08/18/21 09/13/24 09/13/24 History mesalamine 0.375 gram 0.75 g PO Q12H 08/18/21 09/13/24 09/13/24 History capsule,extended release 24 hr metoprolol tartrate 50 mg tablet 50 mg PO Q12H 08/18/21 09/13/24 09/13/24 History pantoprazole 40 mg tablet,delayed 40 mg PO HS 08/18/21 09/13/24 09/13/24 History release ferrous sulfate 324 mg (65 mg 324 mg PO DAILY 06/03/23 09/13/24 09/13/24 History iron) tablet,delayed release metformin 750 mg tablet,extended 750 mg PO DAILY 06/03/23 09/13/24 09/13/24 History release 24 hr vedolizumab 300 mg IV PUSH DIRECTED 06/03/23 09/13/24 09/13/24 History aspirin 81 mg capsule 81 mg PO QAM 03/20/24 09/13/24 09/13/24 History losartan 100 mg tablet 100 mg PO HS 03/20/24 09/13/24 09/13/24 History pravastatin 40 mg tablet 80 mg PO HS 03/20/24 09/13/24 09/13/24 History rivastigmine 4.6 mg/24 hour 4.6 mg topical HS 03/20/24 09/13/24 09/13/24 History transdermal patch calcium 315 mg (as 1 tablet PO DAILY 08/11/24 09/13/24 09/13/24 History citrate)-vitamin D3 5 mcg (200 unit) tablet (Calcium Citrate + D) lamotrigine 200 mg tablet 200 mg PO Q12H 08/11/24 09/13/24 09/13/24 History brivaracetam 50 mg tablet mg PO 09/13/24 09/13/24 History (Briviact) Allergies Allergy/AdvReac Type Severity Reaction Status Date / Time Penicillins Allergy Rash Verified 09/13/24 20:40 [facility] Past Medical History Medical History Dementia of the Alzheimer's type Diabetes Osteopenia Pseudogout of knee Dementia Complex partial seizures MCI (mild cognitive impairment) Deafness in right ear Gastroesophageal reflux disease Hyperlipidemia Ulcerative colitis Hypertension Surgical History Surgical History History of dilation and curettage History of hip surgery Left hip surgery. Family History Family History Mother Diabetes mellitus Hypertension Cancer Cerebrovascular accident Afib Father Cancer Social History Social History Social History: Lives in [place]. Nonsmoker. No alcohol or illicit substance use. 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 Surrogate decision maker: Aby Riley, daughter. Code status: Full code. Smoking status: Never smoker Second hand tobacco smoke exposure: Yes Alcohol intake: never Substance use: never Substance use type: does not use Do You Feel Safe in your Home?: No Lack of Transportation: No Lack of Food: Never True Current Housing: I Have Housing Concerned About Future Housing: No Difficulty Paying Gas/Electric Bills: No Difficulty Paying for Meds: No Currently Unemployed: No Education: Bachelor's Degree Difficulty w/ Childcare or Family Care: No Spiritual care concerns: No Exam Narrative: APPEARANCE: No apparent distress. A&O times 1-2 Head: atraumatic. EYES: EOMI, NOSE: Atraumatic NECK: Trachea midline RESPIRATORY: No increased rate of breathing clear to auscultation CARDIOVASCULAR: Bradycardic, no peripheral edema ABDOMINAL: Non-distended soft nontender MUSCULOSKELETAl: Head to toe trauma exam performed with no areas tenderness or traumatic injury. She does have a slight area bruising along the inside of her left thigh with no tenderness. NEURO: Alert. Moving 4/4 extremities SKIN:: Warm, dry. Normal color PSYCHIATRIC: Normal affect Course Vital Signs Vital signs: Vital Signs Temperature 98 F 09/13/24 20:19 Pulse Rate 40 L 09/13/24 20:19 Respiratory Rate 15 09/13/24 20:19 Blood Pressure 175/54 H 09/13/24 20:19 Pulse Oximetry 98 09/13/24 20:19 Oxygen Delivery Room Air 09/13/24 20:19 Temperature 98.1 F 09/13/24 23:00 Pulse Rate 31 L 09/13/24 23:00 Respiratory Rate 17 09/13/24 23:00 Blood Pressure 122/56 L 09/13/24 23:00 Pulse Oximetry 96 09/13/24 23:00 Oxygen Delivery Room Air 09/13/24 21:06 Medical Decision Making MDM Narrative Medical decision making narrative: -Course: 79-year-old female presenting with generalized weakness. Patient EKG shows sinus bradycardia. Her mental status at baseline her blood pressures are stable. Stable bradycardia. She is on metoprolol which will held. The rest for sepsis workup was significant for a white count of 13.9. No signs of infection on urine chest x-ray or viral swabs. Blood Cultures are still pending. CT head, chest x-ray and pelvis x-ray were negative for acute findings. Patient will be admitted to telemetry for further management. -DDX includes but is not limited to: Sepsis UTI dehydration progression of dementia Independent EKG interpretation: Rhythm [sinus], Rate [38], [place] -[normal], [place] -[normal], QRS [narrow], QTC [normal], T waves -[negative for concerning inversions], ST Segments - [Negative for concerning elevations] Final interpretations: Sinus bradycardia Vital Signs Vital Signs: Vital Signs Temperature 98 F 09/13/24 20:19 Pulse Rate 40 L 09/13/24 20:19 Respiratory Rate 15 09/13/24 20:19 Blood Pressure 175/54 H 09/13/24 20:19 Pulse Oximetry 98 09/13/24 20:19 Oxygen Delivery Room Air 09/13/24 20:19 Temperature 98.1 F 09/13/24 23:00 Pulse Rate 31 L 09/13/24 23:00 Respiratory Rate 17 09/13/24 23:00 Blood Pressure 122/56 L 09/13/24 23:00 Pulse Oximetry 96 09/13/24 23:00 Oxygen Delivery Room Air 09/13/24 21:06 Lab Data 09/13/24 20:33 09/13/24 20:33 Labs: Lab Results 09/13/24 09/13/24 09/13/24 Range/Units 20:33 21:00 23:19 WBC 13.9 H (4.5-10.0) K/mm3 RBC 5.07 (4.2-5.4) M/mm3 Hgb 14.6 (12.0-15.0) g/dL Hct 45.8 (37.0-47.0) % MCV 90.3 (80-100) fl MCH 28.8 (26-34) pg MCHC 31.9 L (32-36) g/dl RDW 14.0 (11.5-14.5) % Plt Count 302 (150-375) k/mm3 MPV 9.1 (7.4-10.4) fl Immature Gran % (Auto) 0.8 H (0-0.5) % Neut % (Auto) 63.4 (45.5-73.1) % Lymph % (Auto) 22.7 (18.3-44.2) % [place] % (Auto) 10.6 H (2.6-8.5) % Eos % (Auto) 2.0 (0-4.4) % Baso % (Auto) 0.5 (0.2-1.2) % Lymph # (Auto) 3.17 (0.9-3.2) K/mm3 [place] # (Auto) 1.5 H (0.1-0.6) K/mm3 Eos # (Auto) 0.3 (0-0.3) K/mm3 Baso # (Auto) 0.1 (0.0-0.1) K/mm3 Abs Immat Gran (auto) 0.11 H (0.00-0.031) K/mm3 Absolute Neuts (auto) 8.8 H (1.3-6.7) K/mm3 Absolute Nucleated RBC 0.000 (0.0-0.012) K/mm3 Nucleated RBC % 0.0 (0.0-0.2) % PT 13.2 (11.1-14.7) Seconds INR 1.0 APTT 26.5 (22.3-36.8) Seconds Sodium 139 (137-145) mmol/L Potassium 4.3 (3.4-5.0) mmol/L Chloride 97 L (98-107) mmol/L Carbon Dioxide 32 H (22-30) mmol/L Anion Gap 10 (4-12) mmol/L BUN 16 (7-17) mg/dL Creatinine 0.86 (0.7-1.0) mg/dL Estim Creat Clear Calc 36 ml/min Estimated GFR > 60 (59 - ) Glucose 148 H (65-110) mg/dL Lactic Acid (0.7-2.0) mmol/L Calcium 10.4 H (8.4-10.2) mg/dL Phosphorus 4.2 (2.5-4.5) mg/dL Magnesium 2.2 (1.6-2.3) mg/dL Total Bilirubin 0.4 (0.2-1.3) mg/dL AST 23 (14-36) U/L ALT 23 (6-35) U/L Alkaline Phosphatase 122 (38-126) U/L Troponin I < 0.012 < 0.012 (0.000-0.034) ng/mL Total Protein 8.0 (6.3-8.2) g/dL Albumin 4.5 (3.5-5.1) g/dL Lipase 91 (23-300) U/L Urine Color Yellow (Yellow) Urine Appearance Clear (Clear) Urine pH 7.5 (5.0-9.0) Ur Specific [place] 1.003 (1.001-1.035) Urine Protein Negative (Negative) mg/dL Urine Glucose (UA) Negative (Negative) mg/dL Urine Ketones Negative (Negative) mg/dL Ur Blood (Man) 1+ H (Negative) Urine Nitrate Negative (Negative) Urine Bilirubin Negative (Negative) Urine Urobilinogen 0.2 (<2.0) mg/dL Leukocyte Esterase Rfl Trace H (Negative) YAMILETH/UL Urine RBC 0-2 (0-2) /hpf Urine WBC 0-5 (0-3) /hpf Ur Squamous Epith Cells None seen (Few) /hpf Urine Bacteria None seen /hpf Urine Casts 0-2 Influenza A (RT-PCR) Negative (Negative) Influenza B (RT-PCR) Negative (Negative) RSV (RT-PCR) Negative (Negative) SARS-CoV-2 RNA (RT-PCR) Negative (Negative) 09/13/24 Range/Units 23:43 WBC (4.5-10.0) K/mm3 RBC (4.2-5.4) M/mm3 Hgb (12.0-15.0) g/dL Hct (37.0-47.0) % MCV (80-100) fl MCH (26-34) pg MCHC (32-36) g/dl RDW (11.5-14.5) % Plt Count (150-375) k/mm3 MPV (7.4-10.4) fl Immature Gran % (Auto) (0-0.5) % Neut % (Auto) (45.5-73.1) % Lymph % (Auto) (18.3-44.2) % [place] % (Auto) (2.6-8.5) % Eos % (Auto) (0-4.4) % Baso % (Auto) (0.2-1.2) % Lymph # (Auto) (0.9-3.2) K/mm3 [place] # (Auto) (0.1-0.6) K/mm3 Eos # (Auto) (0-0.3) K/mm3 Baso # (Auto) (0.0-0.1) K/mm3 Abs Immat Gran (auto) (0.00-0.031) K/mm3 Absolute Neuts (auto) (1.3-6.7) K/mm3 Absolute Nucleated RBC (0.0-0.012) K/mm3 Nucleated RBC % (0.0-0.2) % PT (11.1-14.7) Seconds INR APTT (22.3-36.8) Seconds Sodium (137-145) mmol/L Potassium (3.4-5.0) mmol/L Chloride (98-107) mmol/L Carbon Dioxide (22-30) mmol/L Anion Gap (4-12) mmol/L BUN (7-17) mg/dL Creatinine (0.7-1.0) mg/dL Estim Creat Clear Calc ml/min Estimated GFR (59 - ) Glucose (65-110) mg/dL Lactic Acid 1.0 (0.7-2.0) mmol/L Calcium (8.4-10.2) mg/dL Phosphorus (2.5-4.5) mg/dL Magnesium (1.6-2.3) mg/dL Total Bilirubin (0.2-1.3) mg/dL AST (14-36) U/L ALT (6-35) U/L Alkaline Phosphatase (38-126) U/L Troponin I (0.000-0.034) ng/mL Total Protein (6.3-8.2) g/dL Albumin (3.5-5.1) g/dL Lipase (23-300) U/L Urine Color (Yellow) Urine Appearance (Clear) Urine pH (5.0-9.0) Ur Specific [place] (1.001-1.035) Urine Protein (Negative) mg/dL Urine Glucose (UA) (Negative) mg/dL Urine Ketones (Negative) mg/dL Ur Blood (Man) (Negative) Urine Nitrate (Negative) Urine Bilirubin (Negative) Urine Urobilinogen (<2.0) mg/dL Leukocyte Esterase Rfl (Negative) YAMILETH/UL Urine RBC (0-2) /hpf Urine WBC (0-3) /hpf Ur Squamous Epith Cells (Few) /hpf Urine Bacteria /hpf Urine Casts Influenza A (RT-PCR) (Negative) Influenza B (RT-PCR) (Negative) RSV (RT-PCR) (Negative) SARS-CoV-2 RNA (RT-PCR) (Negative) Discharge Plan Discharge Clinical Impression: Generalized weakness, Bradycardia Patient Disposition: Still a Patient Condition: Stable Patient Language: Amharic Prescriptions: No Action amlodipine 5 mg tablet 5 mg PO DAILY pantoprazole 40 mg tablet,delayed release (DR/EC) 40 mg PO HS metoprolol tartrate 50 mg tablet 50 mg PO Q12H mesalamine 0.375 gram capsule,extended release 24hr 0.75 g PO Q12H metformin 750 mg tablet extended release 24 hr 750 mg PO DAILY vedolizumab 300 mg 300 mg IV PUSH DIRECTED Rx Instructions: Infuse 5ml every 8 weeks ferrous sulfate 324 mg (65 mg iron) tablet,delayed release (DR/EC) 324 mg PO DAILY pravastatin 40 mg tablet 80 mg PO HS losartan 100 mg tablet 100 mg PO HS rivastigmine 4.6 mg/24 hour patch 24 hour 4.6 mg topical HS aspirin 81 mg Capsule 81 mg PO QAM calcium citrate-vitamin D3 [Calcium Citrate + D] 315 mg-5 mcg (200 unit) tablet 1 tablet PO DAILY lamotrigine 200 mg tablet 200 mg PO Q12H Briviact 50 mg tablet PO Follow-up/Referrals: Yelitza,Servando Bernstein MD [Primary Care Provider] -
[2024-09-13 23:00] VITALS: BP 122/56; PULSE 31; RESP 17; TEMP 36.7; O2SAT 96
--- NOTE | 2024-09-13 23:18 | ECG_ITS ---
Test Date: 2024-09-13 20:44:35 Measurements Intervals [place] Rate: 38 P: 37 CO: 159 QRS: 23 QRSD: 90 T: 23 QT: 460 QTc: 367 Interpretive Statements SLOW SINUS BRADYCARDIA WITH OCCASIONAL SUPRAVENTRICULAR PREMATURE COMPLEXES BASELINE ARTIFACT- I, II, III, AVR, AVL ABNORMAL ECG Compared to ECG 09/13/2024 20:36:19 Sinus arrhythmia no longer present Electronically Signed On 09-14-2024 06:25:02 TECHNICAL PROJECT LEAD by Rahat Guzmán D.O.
[2024-09-13 23:46] LABS: Troponin I < 0.012 ng/mL (0.000-0.034)
[2024-09-14] VITALS (9 sets, daily range): BP systolic 130–185; BP diastolic 46–84; PULSE 33–84; RESP 14–18; TEMP 36.4–37; O2SAT 92–99; BMI 26.2
[2024-09-14 02:45] LABS: Troponin I < 0.012 ng/mL (0.000-0.034)
--- NOTE | 2024-09-14 15:06 | P.HP_ITS ---
H&P: HPI History of Present Illness Date/Time: 09/14/24 15:06 Chief Complaint: weakness and bradycardia Narrative: This is an 79-year-old female with a significant past medical history of vascular dementia, diabetes, osteopenia, seizures, GERD, hyperlipidemia, ulcerative colitis, hypertension who presented to the hospital with weakness, altered mental status, shortness of breath. patient denies any fever, chills, nausea, vomiting, diarrhea, abdominal pain, chest pain. She states that she is been feeling more tired lately /fatigue and short of breath with activity which is new for her.Home health was at her house and noticed that her heart rate was in the 40s with no prior history. She was sent for further evaluation. Workup in the hospital included a chest x-ray which showed mild interstitial edema. Head CT was negative for any acute intracranial process. Pelvis x-ray was negative for any acute osseous finding use and shown it and uncomplicated appearing left hip arthroplasty and femoral fixation hardware. Initial labs showed a white blood cell count of 13.9, chloride 97, bicarb 32, calcium 10.4, troponin negative x2. A UA was obtained and showed 1+ urine blood, trace leukocyte, otherwise negative. Respiratory panel was negative for influenza a and B, RSV, COVID. Blood cultures were obtained and pending. EKG shown sinus bradycardia with supraventricular premature complexes with a rate of 38, QTC 367. Echocardiogram from 06/06/2023 shown normal LV systolic function with an estimated EF of 65-70%, grade 1 diastolic dysfunction. Review of Systems Review of Systems: All systems reviewed & are unremarkable except as noted in HPI and below PMFSH Past Medical History Medical History (Updated 09/14/24 @ 16:57 by Gudelia Peterson APRN) Dementia of the Alzheimer's type Diabetes Osteopenia Pseudogout of knee Dementia Complex partial seizures MCI (mild cognitive impairment) Deafness in right ear Gastroesophageal reflux disease Hyperlipidemia Ulcerative colitis Hypertension Surgical History Surgical History History of dilation and curettage History of hip surgery Left hip surgery. Family History Family History Mother Diabetes mellitus Hypertension Cancer Cerebrovascular accident Afib Father Cancer Social History Social History Social History: Lives in [place]. Nonsmoker. No alcohol or illicit substance use. 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 Surrogate decision maker: Aby Riley, daughter. Code status: Full code. Smoking status: Never smoker Second hand tobacco smoke exposure: Yes Alcohol intake: never Substance use: never Substance use type: does not use Do You Feel Safe in your Home?: Yes Lack of Transportation: No Lack of Food: Never True Current Housing: I Have Housing Concerned About Future Housing: No Difficulty Paying Gas/Electric Bills: No Difficulty Paying for Meds: No Currently Unemployed: No Education: High School Diploma/GED Difficulty w/ Childcare or Family Care: No Spiritual care concerns: No Meds Home Medications and Allergies Home Medications ?Medication ?Instructions ?Recorded ?Confirmed ?Type amlodipine 5 mg tablet 5 mg PO DAILY 08/18/21 09/13/24 History mesalamine 0.375 gram 0.75 g PO Q12H 08/18/21 09/13/24 History capsule,extended release 24 hr metoprolol tartrate 50 mg tablet 50 mg PO Q12H 08/18/21 09/13/24 History pantoprazole 40 mg tablet,delayed 40 mg PO HS 08/18/21 09/13/24 History release ferrous sulfate 324 mg (65 mg 324 mg PO DAILY 06/03/23 09/13/24 History iron) tablet,delayed release metformin 750 mg tablet,extended 750 mg PO DAILY 06/03/23 09/13/24 History release 24 hr vedolizumab 300 mg IV PUSH DIRECTED 06/03/23 09/14/24 History aspirin 81 mg capsule 81 mg PO QAM 03/20/24 09/13/24 History losartan 100 mg tablet 100 mg PO HS 03/20/24 09/13/24 History pravastatin 40 mg tablet 80 mg PO HS 03/20/24 09/13/24 History rivastigmine 4.6 mg/24 hour 4.6 mg topical HS 03/20/24 09/13/24 History transdermal patch calcium 315 mg (as 1 tablet PO DAILY 08/11/24 09/13/24 History citrate)-vitamin D3 5 mcg (200 unit) tablet (Calcium Citrate + D) lamotrigine 200 mg tablet 200 mg PO Q12H 08/11/24 09/13/24 History brivaracetam 50 mg tablet 50 mg PO BID 09/13/24 09/14/24 History (Briviact) Allergies Allergy/AdvReac Type Severity Reaction Status Date / Time Penicillins Allergy Rash Verified 09/14/24 01:32 Vital Signs Vital Signs - 24 hr 09/13/24 20:19 09/13/24 20:37 09/13/24 20:38 Temperature 98 F Pulse Rate 40 L 38 L Respiratory Rate 15 Blood Pressure 175/54 H Pulse Oximetry 98 95 Oxygen Delivery Room Air Room Air 09/13/24 20:39 09/13/24 21:06 09/13/24 23:00 Temperature 98.1 F Pulse Rate 38 L 31 L Respiratory Rate 15 17 Blood Pressure 175/62 H 122/56 L Pulse Oximetry 95 95 96 Oxygen Delivery Room Air 09/14/24 00:07 09/14/24 01:34 09/14/24 04:00 Temperature 98.1 F 97.6 F Pulse Rate 50 L 42 L 33 L Respiratory Rate 15 17 Blood Pressure 130/64 158/46 H Pulse Oximetry 96 92 Oxygen Delivery 09/14/24 04:00 09/14/24 08:00 09/14/24 09:00 Temperature 98.0 F 98.6 F Pulse Rate 58 L 57 L 70 Respiratory Rate 16 14 Blood Pressure 173/68 H 185/73 H Pulse Oximetry 99 98 Oxygen Delivery 09/14/24 12:00 Temperature 98.6 F Pulse Rate 77 Respiratory Rate 16 Blood Pressure 159/72 H Pulse Oximetry 96 Oxygen Delivery Exam Narrative: General: In no acute distress, well nourished Head: atraumatic, no encephalopathy Eyes: PERRLA, sclera clear ENT: moist mucous membranes, nasal passages clear Neck: supple, no JVD, no adenopathy, trachea midline Cardiac: Normal S1 and S2. Heart rate currently in the 70s to 80s, No murmur, gallops or friction rubs, peripheral pulses intact. Respiratory: Lungs clear to auscultation, no adventitious lung sounds, currently on room air Gastrointestinal: soft, non-distended, non-tender, normoactive bowel sounds. : voiding without difficulty. Extremities: moves all extremities well, no edema Skin: clean, dry, intact. No wounds or lesions. Neuro: Alert and oriented x4, cranial nerves intact, no neuro deficits. Psych: normal mood, normal affect, interactive H&P: Results Labs Labs: Short CBC 09/13/24 Range/Units 20:33 WBC 13.9 H (4.5-10.0) K/mm3 Hgb 14.6 (12.0-15.0) g/dL Hct 45.8 (37.0-47.0) % Plt Count 302 (150-375) k/mm3 BMP 09/13/24 20:33 Sodium 139 Potassium 4.3 Chloride 97 L Carbon Dioxide 32 H BUN 16 Creatinine 0.86 Glucose 148 H Calcium 10.4 H Cardiac Enzymes 09/13/24 09/13/24 09/14/24 Range/Units 20:33 23:19 02:10 Troponin I < 0.012 < 0.012 < 0.012 (0.000-0.034) ng/mL Liver Function 09/13/24 Range/Units 20:33 Total Bilirubin 0.4 (0.2-1.3) mg/dL AST 23 (14-36) U/L ALT 23 (6-35) U/L Alkaline Phosphatase 122 (38-126) U/L Albumin 4.5 (3.5-5.1) g/dL Urine 09/13/24 Range/Units 21:00 Urine Color Yellow (Yellow) Urine Appearance Clear (Clear) Urine pH 7.5 (5.0-9.0) Ur Specific Mcdonald 1.003 (1.001-1.035) Urine Protein Negative (Negative) mg/dL Urine Glucose (UA) Negative (Negative) mg/dL Imaging Chest x-ray: Radiologist's impression: EXAMINATION: XR chest 1V portable Exam Date/Time: 09/13/2024 20:50 DIABETOLOGIST HISTORY: cp Comparison: 08/11/2024. RESULT: Lines, tubes, and devices: None. Lungs and pleura: Linear scar/atelectasis in the left midlung. Mild diffuse reticular opacities. Cardiomediastinal silhouette: Stable. Other: No acute osseous or upper abdominal finding. IMPRESSION: Mild interstitial edema. Reviewed, dictated and finalized at location K. ETOLOGIST CT scan - head: Radiologist's impression: EXAMINATION: CT brain wo con DATE: 09/13/2024 21:42 INDICATION: Weakness, frequent falls . TECHNIQUE: Computed tomography (CT) of the head was performed without intravenous contrast. The mA was adjusted according to patient size. Iterative reconstruction technique was employed. The dose-length product was 605.33 mGy- cm. COMPARISON: 08/25/2024. FINDINGS: No acute intracranial hemorrhage or extra-axial fluid collection. No hydrocephalus, mass, or herniation. No acute ischemic infarct. Unremarkable dural venous sinus attenuation. No acute osseous abnormality. The aerated spaces are clear. Mild atrophy and moderate chronic white matter change. Atherosclerotic intracranial calcification. Right lens replacement. IMPRESSION: No acute intracranial process. Reviewed, dictated and finalized at location . ETOLOGIST pelvis x-ray: Radiologist's impression: EXAM: XR pelvis 1-2V DATE: 09/13/2024 23:40 HISTORY: Frequen falls. bruising in groin . COMPARISON: 06/10/2024. FINDINGS: Osteopenia. No fracture or dislocation. No lytic or blastic lesion. Lumbar degenerative disc disease. Mild right hip osteoarthritis. Partially visualized left hip arthroplasty hardware and femoral fixation hardware. No erosion or periosteal change. Heterotopic ossification adjacent to the left hip. Pelvic soft tissue phleboliths. IMPRESSION: No acute osseous finding in the pelvis. Partially visualized, uncomplicated appearing left hip arthroplasty and femoral fixation hardware. Reviewed, dictated and finalized at location . ETOLOGIST Assessment and Plan Assessment and plan (1) Bradycardia: Code(s): R00.1 - Bradycardia, unspecified Status: Acute Assessment and Plan: * patient was noted to have heart rate in the 40s-- likely secondary to metoprolol * hold metoprolol * cardiology consulted * continue cardiac monitoring * EKG showed slow sinus bradycardia with occasional supraventricular premature complexes with a rate of 38, QTC 367 (2) Hypertension: Qualifiers: Hypertension type: primary hypertension Qualified Code(s): I10 - Essential (primary) hypertension Code(s): I10 - Essential (primary) hypertension Status: Chronic Assessment and Plan: * blood pressure ranging 159/72 to 185/73 * continue amlodipine and losartan * continue to hold metoprolol due to bradycardia (3) Diabetes: Qualifiers: Diabetes mellitus complication status: without complication Diabetes mellitus detention insulin use: without termite renewal 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 use Diabetes mellitus type: type 2 Qualified Code(s): E11.9 - Type 2 diabetes mellitus without complications Code(s): E11.9 - Type 2 diabetes mellitus without complications Status: Acute Assessment and Plan: * Blood sugars ranging 119-148 * Hgb A1C 6.5 on 08/12/2024 * Accu checks AC/HS * moderate dose SSI ordered * hypoglycemic protocol in place * Diabetic diet ordered * metformin on hold (4) Gastroesophageal reflux disease: Code(s): K21.9 - Gastro-esophageal reflux disease without esophagitis Status: Acute Assessment and Plan: * continue Protonix (5) Seizure: Code(s): R56.9 - Unspecified convulsions Status: Acute Assessment and Plan: * continue Lamictal * Patient was recently started on Brivaracetam for seizures as well after having a continuous EEG at [facility], however this is non formulary. Call placed to pharmacy for equivalent medication (6) Generalized weakness: Code(s): R53.1 - Weakness Status: Acute Assessment and Plan: * PT and OT ordered (7) Ulcerative colitis: Code(s): K51.90 - Ulcerative colitis, unspecified, without complications Status: Acute Assessment and Plan: * vedolizumab and mesalamine on hold as they are not formulary here Quality VTE Prophylaxis VTE prophylaxis: pharmacologic ordered Hospitalist MIPS Advance Care Plan I have confirmed that the patient's Advanced Care Plan is present, code status is documented, or surrogate decision maker is listed in patient medical record.: Yes Medication Reconciliation I have utilized all available resources to obtain, update and review the patients current medications (includes all prescriptions, OTC, herbals, cannabis, and nutritional supplements).: Yes
[2024-09-14] MEDS: amLODIPine BESYLATE 5 MG TABLET PO (16:00)
[2024-09-14 17:13] LABS: Glucose Point of Care 116 mg/dl (65-105)
[2024-09-14 17:17] LABS: Basophils Absolute Auto 0.1 K/mm3 (0.0-0.1); Basophils Percent Auto 0.5 % (0.2-1.2); Eosinophils Absolute Auto 0.3 K/mm3 (0-0.3); Eosinophils Percent Auto 2.4 % (0-4.4); Hematocrit 45.3 % (37.0-47.0); Hemoglobin 14.6 g/dL (12.0-15.0); Immature Granulocyte Absolute 0.06 K/mm3 (0.00-0.031); Immature Granulocyte Percent A 0.5 % (0-0.5); Lymphocytes Absolute Auto 2.56 K/mm3 (0.9-3.2); Lymphocytes Percent Auto 23.4 % (18.3-44.2); Mean Corpuscular HGB Conc 32.2 g/dl (32-36); Mean Corpuscular Volume 90.1 fl (80-100); Mean Platelet Volume 8.9 fl (7.4-10.4); Monocytes Percent Auto 8.7 % (2.6-8.5); Neutrophils Absolute Auto 7.1 K/mm3 (1.3-6.7); Neutrophils Percent Auto 64.5 % (45.5-73.1); Platelet Count Result 267 k/mm3 (150-375); Red Blood Count 5.03 M/mm3 (4.2-5.4)
[2024-09-14 17:29] LABS: Alanine Aminotransferase 24 U/L (6-35); Albumin Level 4.3 g/dL (3.5-5.1); Alkaline Phosphatase 122 U/L (38-126); Anion Gap 11 mmol/L (4-12); Aspartate Amino Transferase 25 U/L (14-36); Bilirubin,Total 0.5 mg/dL (0.2-1.3); Blood Urea Nitrogen 16 mg/dL (7-17); Calcium 9.8 mg/dL (8.4-10.2); Carbon Dioxide 27 mmol/L (22-30); Chloride 102 mmol/L (98-107); Estimated CRCL calculation 38 ml/min; Estimated Glomerular Filt Rate 60; Glucose 115 mg/dL (65-110); Potassium 3.8 mmol/L (3.4-5.0); Sodium 140 mmol/L (137-145)
[2024-09-14 17:57] LABS: Hemoglobin A1C 6.6 % (<5.7)
[2024-09-14 18:25] LABS: Base Excess ABG 1.9 mEq/l (+/-2.0); Fractional Inspired Oxygen 21 %; HCO3 ABG 25.4 mEq/l (22.0-26.0); Oxygen Content ABG 19.1 %vol (16.0-22.0); Oxygen Saturation ABG 94.7 % (95.0-100.0); Oxyhemoglobin 93.3 % THb (90.0-100.0); PCO2 ABG 36.3 mmHg (35.0-45.0); PO2 ABG 68.3 mmHg (80.0-100.0); PO2 FiO2 Ratio Arterial Blood 3.25 %; Total Hemoglobin 14.6 g/dL (12.0-18.0); pH ABG 7.462 (7.350-7.450)
[2024-09-14 18:27] LABS: Device ROOM AIR; Modified Allen's Test Pass; Site Drawn RIGHT RADIAL
[2024-09-14 21:44] LABS: Glucose Point of Care 138 mg/dl (65-105)
--- NOTE | 2024-09-14 22:07 | PHAR ---
Ingredients:??Brivaracetam?-- 50 MG Color:?Yellow Shape:?Oval Imprint:??u50 Form:?Oral Tablet Drug Name:Mesalamine Color:?Light Blue Opaque Shape:?Capsule-shape Imprint:??MES?;?375 Imprint Code Description:?Imprinted with MES on cap and 375 on body. Form:?Oral Capsule, Extended Releas
[2024-09-14] MEDS: PRAVASTATIN SODIUM 20 MG TABLET 80 MG PO (22:28)
[2024-09-14] MEDS: PANTOPRAZOLE 40 MG TABLET PO (22:28)
[2024-09-14] MEDS: LOSARTAN POTASSIUM 100 MG TABLET PO (22:28)
[2024-09-14] MEDS: MESALAMINE 0.375 GM 2 EACH PO (22:28)
[2024-09-14] MEDS: BRIVARACETAM 50 MG 1 EACH PO (22:28)
[2024-09-14] MEDS: lamoTRIgine 100 MG TABLET 200 MG PO (22:28)
[2024-09-14] MEDS: RIVASTIGMINE TARTRATE 4.6 MG PATCH 1 PATCH TRANSDERM (22:29)
[2024-09-15] VITALS (7 sets, daily range): BP systolic 146–148; BP diastolic 64–73; PULSE 68–97; RESP 14–18; TEMP 36.2–36.8; O2SAT 91–97
--- NOTE | 2024-09-15 | ECHO_ITS ---
Patient Info Name: Lisa Allen Age: 79 years : 1945 Gender: Female Ht: 62 in Wt: 143 lbs BSA: 1.70 m2 HR: 68 bpm BP: 148 / 71 mmHg Technical Quality: Fair Exam Date: 09/15/2024 11:34 AM Exam Location: Echo Lab Patient Status: Inpatient Admit Date: 09/14/2024 Staff Ordering Physician: Fredy Raya MD/tyree) Field Supervisor: Sonia Hoskins RDCS Attending Provider: Gudelia Peterson APRN Referring Physician: Elver OTERO; Exam Type: CA echo doppler color flow Study Info Indications - BRADYCARDIA Complete two-dimensional, color flow and Doppler transthoracic echocardiogram is performed. Summary 1. Left ventricular chamber dimension is normal. 2. Left ventricular systolic function is normal, estimated at 60-65%. 3. There is mildly increased left ventricular wall thickness. 4. The left ventricular diastolic function is grade I diastolic dysfunction. 5. Right ventricular systolic function is normal. 6. Left atrial chamber dimension is severely enlarged. 7. There is mild aortic valve stenosis. 8. There is mild tricuspid valve regurgitation. Left Ventricle Left ventricular chamber dimension is normal. Left ventricular systolic function is normal, estimated at 60-65%. There is mildly increased left ventricular wall thickness. The left ventricular diastolic function is grade I diastolic dysfunction. Right Ventricle Right ventricular chamber dimension is normal. Right ventricular systolic function is normal. Left Atria Left atrial chamber dimension is severely enlarged. Right Atria Right atrial chamber dimension is normal. Atrial Septum Intact interatrial septum visualized by color flow imaging. Aortic Valve The aortic valve is probable trileaflet. There is mild aortic valve stenosis. There is no aortic valve regurgitation. There is moderate aortic valve calcification. Pulmonic Valve The pulmonic valve is not well visualized. There is trace pulmonic regurgitation. Mitral Valve There is trace mitral valve regurgitation. The mitral valve annulus is mildly calcified. Tricuspid Valve There is mild tricuspid valve regurgitation. Pericardium/Pleural There is no pericardial effusion. Inferior Vena Cava Normal inferior vena cava with >50% collapse upon inspiration consistent with normal right atrial pressure, 3 mmHg. Aorta The aortic root size at the sinus of Valsalva is normal. Left Ventricular Outflow Tract Name Value Normal LVOT 2D LVOT Diameter 1.7 cm LVOT Doppler LVOT Peak Velocity 111 cm/s LVOT Peak Gradient 4 mmHg LVOT Mean Gradient 3 mmHg LVOT VTI 23 cm LVOT VTI/AV VTI Ratio 0.5 LVOT Stroke Volume 52 ml LVOT CO 10.9 l/min LVOT CI 6.4 l/min/m2 Pulmonic Valve Name Value Normal RVOT Doppler RVOT Peak Gradient 2 mmHg PV Doppler PV Peak Velocity 79 cm/s PV Peak Gradient 3 mmHg Mitral Valve Name Value Normal MV Doppler MV Decel Custer 237 cm/s2 MV PHT 55 ms MV Area (PHT) 4.0 cm2 4.0-5.0 MV Diastolic Function MV E Peak Velocity 45 cm/s MV A Peak Velocity 78 cm/s MV E/A 0.6 MV Decel Time 191 ms MV Annular TDI MV Septal e' Velocity 5.1 cm/s >=8.0 MV E/e' (Septal) 8.9 <=8.0 MV Lateral e' Velocity 6.3 cm/s >=10.0 MV E/e' (Lateral) 7.2 <=8.0 MV e' Average 5.70 MV E/e' (Average) 8.0 Tricuspid Valve Name Value Normal Estimated PAP/RSVP RA Pressure 3 mmHg <=5 TV Annular TDI TV Lateral Ashley s' Velocity 20.5 cm/s 9.5-18.7 Aorta Name Value Normal Ascending Aorta Ao Root Diameter (MM) 3.3 cm Ao Root Diam Index (MM) 1.9 cm/m2 Ao [place] Diameter 1.8 cm 2.3-2.9 Aortic Valve Name Value Normal AV Doppler AV Peak Velocity 229 cm/s AV Peak Gradient 21 mmHg AV Mean Gradient 11 mmHg AV VTI 45 cm AV Area (Cont Eq VTI) 1.1 cm2 >=3.0 AV Area (Cont Eq Kb) 1.1 cm2 AV V1/V2 Ratio 0.48 AV Regurgitation 2D LVOT Area 2.2 cm2 Ventricles Name Value Normal LV Dimensions 2D/MM IVS Diastolic Thickness (2D) 1.3 cm 0.6-1.0 LVID Diastole (2D) 4.2 cm 3.8-5.2 LVIW Diastolic Thickness (2D) 1.7 cm 0.6-0.9 LVID Systole (2D) 2.6 cm 2.2-3.5 LVOT Diameter 1.7 cm LV Mass (2D Cubed) 250.50 g 67.00-162.00 LV Mass Index (2D Cubed) 147 g/m2 43-95 Relative Wall Thickness (2D) 0.83 LV Fractional Shortening/Ejection Fraction 2D/MM LV Fractional Shortening (2D) 38 % 27-45 LV EF (2D Teicholz) 68 % 54-74 LV Diastolic Volume (4C MOD) 80 ml LV EF (4C MOD) 65 % LV Diastolic Volume (2C MOD) 55 ml LV EF (2C MOD) 60 % LV Diastolic Volume (BP MOD) 69 ml 46-106 LV Diastolic Volume Index (BP MOD) 41 ml/m2 29-61 LV Systolic Volume (BP MOD) 25 ml 14-42 LV Systolic Volume Index (BP MOD) 15 ml/m2 8-24 LV EF (BP MOD) 64 % 54-74 LV Diastolic Length (4C) 7.1 cm LV Systolic Length (4C) 5.3 cm LV Stroke Volume (4C MOD) 53 ml Atria Name Value Normal LA Dimensions LA Dimension (MM) 4.1 cm 2.7-3.8 LA Volume (4C A-L) 72 ml LA Volume (BP A-L) 89 ml RA Dimensions RA Area (4C) 15.1 cm2 <=18.0 Report Signatures
--- NOTE | 2024-09-15 07:33 | PM.IMPN ---
Progress Note: A&P Assessment and Plan (1) Bradycardia: Code(s): R00.1 - Bradycardia, unspecified Status: Acute Assessment and Plan: patient was noted to have heart rate in the 40s-- likely secondary to metoprolol hold metoprolol cardiology consulted continue cardiac monitoring EKG showed slow sinus bradycardia with occasional supraventricular premature complexes with a rate of 38, QTC 367 (2) Hypertension: Qualifiers: Hypertension type: primary hypertension Qualified Code(s): I10 - Essential (primary) hypertension Code(s): I10 - Essential (primary) hypertension Status: Chronic Assessment and Plan: blood pressure ranging 159/72 to 185/73 continue amlodipine and losartan continue to hold metoprolol due to bradycardia (3) Diabetes: Qualifiers: Diabetes mellitus type: type 2 Diabetes mellitus snf insulin use: without terminal makeup operator use Diabetes mellitus complication status: without complication Qualified Code(s): E11.9 - Type 2 diabetes mellitus without complications Code(s): E11.9 - Type 2 diabetes mellitus without complications Status: Acute Assessment and Plan: Blood sugars ranging 119-148 Hgb A1C 6.5 on 08/12/2024 Accu checks AC/HS moderate dose SSI ordered hypoglycemic protocol in place Diabetic diet ordered metformin on hold (4) Gastroesophageal reflux disease: Code(s): K21.9 - Gastro-esophageal reflux disease without esophagitis Status: Acute Assessment and Plan: continue Protonix (5) Seizure: Code(s): R56.9 - Unspecified convulsions Status: Acute Assessment and Plan: continue Lamictal Patient was recently started on Brivaracetam for seizures as well after having a continuous EEG at [facility], however this is non formulary. Call placed to pharmacy for equivalent medication (6) Generalized weakness: Code(s): R53.1 - Weakness Status: Acute Assessment and Plan: PT and OT ordered (7) Ulcerative colitis: Code(s): K51.90 - Ulcerative colitis, unspecified, without complications Status: Acute Assessment and Plan: vedolizumab and mesalamine on hold as they are not formulary here Subjective Date/time seen: 09/15/24 07:33 Interval history: Interval history: This is an 79-year-old female with a significant past medical history of vascular dementia, diabetes, osteopenia, seizures, GERD, hyperlipidemia, ulcerative colitis, hypertension who presented to the hospital with weakness, altered mental status, shortness of breath. patient denies any fever, chills, nausea, vomiting, diarrhea, abdominal pain, chest pain. She states that she is been feeling more tired lately /fatigue and short of breath with activity which is new for her.Home health was at her house and noticed that her heart rate was in the 40s with no prior history. She was sent for further evaluation. Workup in the hospital included a chest x-ray which showed mild interstitial edema. Head CT was negative for any acute intracranial process. Pelvis x-ray was negative for any acute osseous finding use and shown it and uncomplicated appearing left hip arthroplasty and femoral fixation hardware. Initial labs showed a white blood cell count of 13.9, chloride 97, bicarb 32, calcium 10.4, troponin negative x2. A UA was obtained and showed 1+ urine blood, trace leukocyte, otherwise negative. Respiratory panel was negative for influenza a and B, RSV, COVID. Blood cultures were obtained and pending. EKG shown sinus bradycardia with supraventricular premature complexes with a rate of 38, QTC 367. Echocardiogram from 06/06/2023 shown normal LV systolic function with an estimated EF of 65-70%, grade 1 diastolic dysfunction. Subjective: Review of Systems Review of Systems: All systems reviewed & are unremarkable except as noted in HPI and below Exam Narrative: General: In no acute distress, well nourished Head: atraumatic, no encephalopathy Eyes: PERRLA, sclera clear ENT: moist mucous membranes, nasal passages clear Neck: supple, no JVD, no adenopathy, trachea midline Cardiac: Normal S1 and S2. Heart rate currently in the 70s to 80s, No murmur, gallops or friction rubs, peripheral pulses intact. Respiratory: Lungs clear to auscultation, no adventitious lung sounds, currently on room air Gastrointestinal: soft, non-distended, non-tender, normoactive bowel sounds. : voiding without difficulty. Extremities: moves all extremities well, no edema Skin: clean, dry, intact. No wounds or lesions. Neuro: Alert and oriented x4, cranial nerves intact, no neuro deficits. Psych: normal mood, normal affect, interactive Objective Data Vital Signs Vital Signs: Vital Signs - 24 hr 09/14/24 08:00 09/14/24 08:00 09/14/24 09:00 Temperature 98.6 F Pulse Rate 57 L 70 Respiratory Rate 14 Blood Pressure 185/73 H Pulse Oximetry 98 Oxygen Delivery Room Air 09/14/24 12:00 09/14/24 12:00 09/14/24 16:00 Temperature 98.6 F 97.8 F Pulse Rate 77 70 84 Respiratory Rate 16 18 Blood Pressure 159/72 H 137/84 Pulse Oximetry 96 94 Oxygen Delivery 09/14/24 16:00 09/14/24 20:00 09/14/24 20:00 Temperature 97.7 F Pulse Rate 78 81 Respiratory Rate 18 Blood Pressure 166/78 H Pulse Oximetry 97 Oxygen Delivery Room Air 09/14/24 20:00 09/14/24 22:00 09/15/24 00:00 Temperature 97.7 F 97.1 F L Pulse Rate 83 81 75 Respiratory Rate 18 18 Blood Pressure 166/78 H 146/73 H Pulse Oximetry 97 91 Oxygen Delivery 09/15/24 00:00 09/15/24 04:00 09/15/24 04:00 Temperature 97.7 F Pulse Rate 78 77 97 Respiratory Rate 18 Blood Pressure 146/73 H Pulse Oximetry 93 Oxygen Delivery 09/15/24 06:00 Temperature 97.7 F Pulse Rate 68 Respiratory Rate 18 Blood Pressure 148/71 H Pulse Oximetry 97 Oxygen Delivery Intake/Output Intake/Output: Intake & Output 09/12/24 09/13/24 09/14/24 09/15/24 23:59 23:59 23:59 23:59 Intake Total 2520 Output Total 250 Balance -250 2520 Meds/Results Medications: Active Medications Generic Name Dose Route Start Last Admin Trade Name Freq PRN Reason Stop Dose Admin Amlodipine Besylate 5 mg 09/14/24 15:15 09/14/24 16:00 Amlodipine Besylate 5 Mg Tablet PO 5 mg DAILY [facility] Administration Aspirin 81 mg 09/15/24 09:00 Aspirin 81 Mg Enteric Tablet PO QAM [facility] Calcium Citrate 1 tablet 09/15/24 09:00 Calcium Citrate 315 Mg/Vitamin D 6.25 Mcg (250 Units) Tab PO DAILY [facility] Dextrose 12.5 gm 09/14/24 15:24 Dextrose 50% 25 Gm/50 Ml Syringe IV PUSH PRN PRN Hypoglycemia Protocol Enoxaparin Sodium 40 mg 09/15/24 09:00 Enoxaparin 40 Mg/0.4 Ml Syringe SUB-Q DAILY [facility] Ferrous Sulfate 324 mg 09/15/24 09:00 Ferrous Sulfate [address] BY MOUTH DAILY [facility] Glucagon 1 mg 09/14/24 15:24 Glucagon For Inj 1 Mg Vial IM PRN PRN Hypoglycemia Protocol Glucose 15 gm 09/14/24 15:24 Glucose Oral Gel 15 Gm Of Glucse In 37.5 Gm Tube PO PRN PRN Hypoglycemia Protocol Dextrose 1,000 mls @ 100 mls/hr 09/14/24 15:24 Dextrose 5% 1,000 Ml IVPB PRN PRN Hypoglycemia Protocol Insulin Aspart 3 - 6 units 09/14/24 17:00 09/14/24 20:14 Insulin Aspart (*Bkc) 100 Units/Ml SUB-Q Not Given TIDWM [facility] Protocol Insulin Aspart 1 - 3 units 09/14/24 21:00 09/14/24 22:08 Insulin Aspart (*Bkc) 100 Units/Ml SUB-Q Not Given HS [facility] Protocol Lamotrigine 200 mg 09/14/24 21:00 09/14/24 22:28 Lamotrigine 100 Mg Tablet PO 200 mg Q12H [facility] Administration Losartan Potassium 100 mg 09/14/24 21:00 09/14/24 22:28 Losartan Potassium 100 Mg Tablet PO 100 mg HS [facility] Administration (Brivaracetam 50 Mg 1 each 09/14/24 21:00 09/14/24 22:28 Oral Tablet)Home Med PO 10/14/24 20:59 1 each Q12HR [facility] Administration (Mesalamine 0.375 2 each 09/14/24 21:00 09/14/24 22:28 Gram Oral Capsule, PO 10/14/24 20:59 2 each Er 24 Hr)Home Med Q12HR [facility] Administration Pantoprazole Sodium 40 mg 09/14/24 21:00 09/14/24 22:28 Pantoprazole 40 Mg Tablet PO 40 mg HS [facility] Administration Pravastatin Sodium 80 mg 09/14/24 21:00 09/14/24 22:28 Pravastatin Sodium 20 Mg Tablet PO 80 mg HS [facility] Administration Rivastigmine 1 patch 09/14/24 21:00 09/14/24 22:29 Rivastigmine Tartrate 4.6 Mg Patch TRANSDERM 1 patch HS [facility] Administration Radiology Results: ITS Impressions Chest X-Ray 09/13/24 21:07 IMPRESSION: Mild interstitial edema. Head CT 09/13/24 21:56 IMPRESSION: No acute intracranial process. Pelvis X-Ray 09/13/24 23:41 IMPRESSION: No acute osseous finding in the pelvis. Partially visualized, uncomplicated appearing left hip arthroplasty and femoral fixation hardware. Labs Labs: Laboratory Results - last 24 hr 09/14/24 09/14/24 09/14/24 17:09 17:11 18:21 WBC 11.0 H RBC 5.03 Hgb 14.6 Hct 45.3 MCV 90.1 MCH 29.0 MCHC 32.2 RDW 14.0 Plt Count 267 MPV 8.9 Immature Gran % (Auto) 0.5 Neut % (Auto) 64.5 Lymph % (Auto) 23.4 [place] % (Auto) 8.7 H Eos % (Auto) 2.4 Baso % (Auto) 0.5 Lymph # (Auto) 2.56 [place] # (Auto) 1.0 H Eos # (Auto) 0.3 Baso # (Auto) 0.1 Abs Immat Gran (auto) 0.06 H Absolute Neuts (auto) 7.1 H Absolute Nucleated RBC 0.000 Nucleated RBC % 0.0 Puncture Site Right radial ABG pH 7.462 H ABG pCO2 36.3 ABG pO2 68.3 L ABG PO2/FiO2 Ratio 3.25 ABG HCO3 25.4 ABG O2 Saturation 94.7 L ABG O2 Content 19.1 ABG Base Excess 1.9 A-a Gradient 38.0 Oxyhemoglobin 93.3 Total Hemoglobin 14.6 O2 Delivery Device Room air O2 Liters/Min Not Reportable FiO2 21 Sodium 140 Potassium 3.8 Chloride 102 Carbon Dioxide 27 Anion Gap 11 BUN 16 Creatinine 0.90 Estim Creat Clear Calc 38 Estimated GFR 60 Glucose 115 H POC Capillary Glucose 116 H Hemoglobin A1c 6.6 H Calcium 9.8 Total Bilirubin 0.5 AST 25 ALT 24 Alkaline Phosphatase 122 Total Protein 8.0 Albumin 4.3 09/14/24 21:38 WBC RBC Hgb Hct MCV MCH MCHC RDW Plt Count MPV Immature Gran % (Auto) Neut % (Auto) Lymph % (Auto) [place] % (Auto) Eos % (Auto) Baso % (Auto) Lymph # (Auto) [place] # (Auto) Eos # (Auto) Baso # (Auto) Abs Immat Gran (auto) Absolute Neuts (auto) Absolute Nucleated RBC Nucleated RBC % Puncture Site ABG pH ABG pCO2 ABG pO2 ABG PO2/FiO2 Ratio ABG HCO3 ABG O2 Saturation ABG O2 Content ABG Base Excess A-a Gradient Oxyhemoglobin Total Hemoglobin O2 Delivery Device O2 Liters/Min FiO2 Sodium Potassium Chloride Carbon Dioxide Anion Gap BUN Creatinine Estim Creat Clear Calc Estimated GFR Glucose POC Capillary Glucose 138 H Hemoglobin A1c Calcium Total Bilirubin AST ALT Alkaline Phosphatase Total Protein Albumin Quality VTE Prophylaxis VTE prophylaxis: pharmacologic ordered
[2024-09-15 08:00] LABS: Basophils Absolute Auto 0.1 K/mm3 (0.0-0.1); Basophils Percent Auto 0.6 % (0.2-1.2); Eosinophils Absolute Auto 0.2 K/mm3 (0-0.3); Eosinophils Percent Auto 2.7 % (0-4.4); Hematocrit 43.2 % (37.0-47.0); Hemoglobin 13.7 g/dL (12.0-15.0); Immature Granulocyte Absolute 0.06 K/mm3 (0.00-0.031); Immature Granulocyte Percent A 0.7 % (0-0.5); Lymphocytes Absolute Auto 2.11 K/mm3 (0.9-3.2); Lymphocytes Percent Auto 23.3 % (18.3-44.2); Mean Corpuscular HGB Conc 31.7 g/dl (32-36); Mean Corpuscular Hemoglobin 28.3 pg (26-34); Mean Corpuscular Volume 89.3 fl (80-100); Mean Platelet Volume 9.1 fl (7.4-10.4); Monocytes Absolute Auto 0.9 K/mm3 (0.1-0.6); Monocytes Percent Auto 9.6 % (2.6-8.5); Neutrophils Absolute Auto 5.7 K/mm3 (1.3-6.7); Neutrophils Percent Auto 63.1 % (45.5-73.1); Platelet Count Result 240 k/mm3 (150-375); Red Blood Count 4.84 M/mm3 (4.2-5.4)
[2024-09-15 08:15] LABS: Alanine Aminotransferase 20 U/L (6-35); Albumin Level 3.8 g/dL (3.5-5.1); Alkaline Phosphatase 93 U/L (38-126); Anion Gap 7 mmol/L (4-12); Aspartate Amino Transferase 21 U/L (14-36); Bilirubin,Total 0.6 mg/dL (0.2-1.3); Blood Urea Nitrogen 15 mg/dL (7-17); Carbon Dioxide 29 mmol/L (22-30); Chloride 104 mmol/L (98-107); Estimated CRCL calculation 44 ml/min; Estimated Glomerular Filt Rate > 60; Glucose 135 mg/dL (65-110); Potassium 3.6 mmol/L (3.4-5.0); Sodium 140 mmol/L (137-145)
[2024-09-15] MEDS: ENOXAPARIN 40 MG/0.4 ML SYRINGE SUB-Q (08:30)
[2024-09-15] MEDS: ASPIRIN 81 MG ENTERIC TABLET PO (08:30)
[2024-09-15] MEDS: FERROUS SULFATE 325 MG TABLET DR 324 MG BY MOUTH (08:30)
[2024-09-15] MEDS: CALCIUM CITRATE 315 MG/VITAMIN D 6.25 MCG (250 UNITS) TAB 1 TABLET PO (08:30)
[2024-09-15] MEDS: amLODIPine BESYLATE 5 MG TABLET PO (08:30)
[2024-09-15] MEDS: lamoTRIgine 100 MG TABLET 200 MG PO (08:30)
[2024-09-15] MEDS: MESALAMINE 0.375 GM 2 EACH PO (08:31)
[2024-09-15] MEDS: BRIVARACETAM 50 MG 1 EACH PO (08:31)
[2024-09-15 08:36] LABS: Glucose Point of Care 136 mg/dl (65-105)
--- NOTE | 2024-09-15 10:57 | PM.CNCAR ---
Assessment and Plan Assessment and plan (1) Bradycardia: Code(s): R00.1 - Bradycardia, unspecified Status: Acute Plan 1. Sinus bradycardia 2. Hypertension 3. Hyperlipidemia 4. Vascular dementia 5. Diabetes 6. Seizure disorder 7. GERD 8. Ulcerative colitis PLAN: -Sinus bradycardia which has now improved. -Agree with stopping the Metoprolol. She has no clear indication for the beta emily (was being used for hypertension), therefore, does not need beta emily therapy. Avoid AV minna blocking agents. -Will check TSH level. -Obtain TTE. -Recommend outpatient sleep study. -Continue Amlodipine and Losartan for hypertension. If additional blood pressure control is needed, can increase dose of Amlodipine. Avoid AV minna blocking agents. Recommendations and plan discussed with Hospitalist. History of Present Illness History of Present Illness Consult date/time: 09/15/24 10:57 Requesting physician: Gudelia Peterson APRN Consult reason: Other (Bradycardia ) Reason For Visit: Weakness Narrative: We are consulted for bradycardia. This is an 79 year old female with hypertension, hyperlipidemia, vascular dementia, diabetes, seizure disorder, GERD, ulcerative colitis who presented with weakness, altered mental status. Home Health noted that her heart rate was in the 40s. Sent to the hospital for further evaluation. EKG showed sinus bradycardia with heart rate of 38. On Metoprolol 50mg BID at home, which was held on admission. Currently heart rates in the 70s. States she is feeling well. Denies lightheadedness/dizziness. Is sleepy this morning, otherwise no other complaints. Last echocardiogram from 2022 shows LVEF 65-70%, grade 1 diastolic dysfunction, moderate enlargement of left atrium, no significant valvular disease. Review of Systems Review of Systems: All systems reviewed & are unremarkable except as noted in HPI and below (HPI) [facility] Past Medical History Medical History Dementia of the Alzheimer's type Diabetes Osteopenia Pseudogout of knee Dementia Complex partial seizures MCI (mild cognitive impairment) Deafness in right ear Gastroesophageal reflux disease Hyperlipidemia Ulcerative colitis Hypertension Surgical History Surgical History History of dilation and curettage History of hip surgery Left hip surgery. Family History Family History Mother Diabetes mellitus Hypertension Cancer Cerebrovascular accident Afib Father Cancer Social History Social History Social History: Lives in [place]. Nonsmoker. No alcohol or illicit substance use. 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 Surrogate decision maker: Aby Riley, daughter. Code status: Full code. Smoking status: Never smoker Second hand tobacco smoke exposure: Yes Alcohol intake: never Substance use: never Substance use type: does not use Do You Feel Safe in your Home?: Yes Lack of Transportation: No Lack of Food: Never True Current Housing: I Have Housing Concerned About Future Housing: No Difficulty Paying Gas/Electric Bills: No Difficulty Paying for Meds: No Currently Unemployed: No Education: High School Diploma/GED Difficulty w/ Childcare or Family Care: No Spiritual care concerns: No Meds Home Medications and Allergies Home Medications ?Medication ?Instructions ?Recorded ?Confirmed ?Type amlodipine 5 mg tablet 5 mg PO DAILY 08/18/21 09/13/24 History mesalamine 0.375 gram 0.75 g PO Q12H 08/18/21 09/13/24 History capsule,extended release 24 hr metoprolol tartrate 50 mg tablet 50 mg PO Q12H 08/18/21 09/13/24 History pantoprazole 40 mg tablet,delayed 40 mg PO HS 08/18/21 09/13/24 History release ferrous sulfate 324 mg (65 mg 324 mg PO DAILY 06/03/23 09/13/24 History iron) tablet,delayed release metformin 750 mg tablet,extended 750 mg PO DAILY 06/03/23 09/13/24 History release 24 hr vedolizumab 300 mg IV PUSH DIRECTED 06/03/23 09/14/24 History aspirin 81 mg capsule 81 mg PO QAM 03/20/24 09/13/24 History losartan 100 mg tablet 100 mg PO HS 03/20/24 09/13/24 History pravastatin 40 mg tablet 80 mg PO HS 03/20/24 09/13/24 History rivastigmine 4.6 mg/24 hour 4.6 mg topical HS 03/20/24 09/13/24 History transdermal patch calcium 315 mg (as 1 tablet PO DAILY 08/11/24 09/13/24 History citrate)-vitamin D3 5 mcg (200 unit) tablet (Calcium Citrate + D) lamotrigine 200 mg tablet 200 mg PO Q12H 08/11/24 09/13/24 History brivaracetam 50 mg tablet 50 mg PO BID 09/13/24 09/14/24 History (Briviact) Allergies Allergy/AdvReac Type Severity Reaction Status Date / Time Penicillins Allergy Rash Verified 09/14/24 01:32 Vital Signs Vital Signs - 24 hr 09/14/24 12:00 09/14/24 12:00 09/14/24 16:00 Temperature 37.0 C 36.6 C Pulse Rate 77 70 84 Respiratory Rate 16 18 Blood Pressure 159/72 H 137/84 Pulse Oximetry 96 94 Oxygen Delivery 09/14/24 16:00 09/14/24 20:00 09/14/24 20:00 Temperature 36.5 C Pulse Rate 78 81 Respiratory Rate 18 Blood Pressure 166/78 H Pulse Oximetry 97 Oxygen Delivery Room Air 09/14/24 20:00 09/14/24 22:00 09/15/24 00:00 Temperature 36.5 C 36.2 C L Pulse Rate 83 81 75 Respiratory Rate 18 18 Blood Pressure 166/78 H 146/73 H Pulse Oximetry 97 91 Oxygen Delivery 09/15/24 00:00 09/15/24 04:00 09/15/24 04:00 Temperature 36.5 C Pulse Rate 78 77 97 Respiratory Rate 18 Blood Pressure 146/73 H Pulse Oximetry 93 Oxygen Delivery 09/15/24 06:00 Temperature 36.5 C Pulse Rate 68 Respiratory Rate 18 Blood Pressure 148/71 H Pulse Oximetry 97 Oxygen Delivery Exam Const: General: no acute distress HENMT: Mouth: Yes moist mucous membranes Eyes: General: appearance normal, both eyes and all related structures Sclera: sclerae normal Resp: Effort & Inspection: normal respiratory effort Cardio: Rate: regular rate Rhythm: regular rhythm Heart sounds: no murmurs Skin: General skin exam: normal color Neuro: Speech: normal speech Psych: Mental Status: mental status grossly normal Affect: normal affect Results Labs and Meds 09/15/24 07:29 09/15/24 07:29 Lab results: Cardiac Enzymes 09/14/24 09/15/24 Range/Units 17:11 07:29 AST 25 21 (14-36) U/L CBC 09/14/24 09/15/24 Range/Units 17:11 07:29 WBC 11.0 H 9.0 (4.5-10.0) K/mm3 RBC 5.03 4.84 (4.2-5.4) M/mm3 Hgb 14.6 13.7 (12.0-15.0) g/dL Hct 45.3 43.2 (37.0-47.0) % Plt Count 267 240 (150-375) k/mm3 Lymph # (Auto) 2.56 2.11 (0.9-3.2) K/mm3 [place] # (Auto) 1.0 H 0.9 H (0.1-0.6) K/mm3 Eos # (Auto) 0.3 0.2 (0-0.3) K/mm3 Baso # (Auto) 0.1 0.1 (0.0-0.1) K/mm3 Comprehensive Metabolic Panel 09/14/24 09/15/24 Range/Units 17:11 07:29 Sodium 140 140 (137-145) mmol/L Potassium 3.8 3.6 (3.4-5.0) mmol/L Chloride 102 104 (98-107) mmol/L Carbon Dioxide 27 29 (22-30) mmol/L BUN 16 15 (7-17) mg/dL Creatinine 0.90 0.78 (0.7-1.0) mg/dL Glucose 115 H 135 H (65-110) mg/dL Calcium 9.8 9.0 (8.4-10.2) mg/dL AST 25 21 (14-36) U/L ALT 24 20 (6-35) U/L Alkaline Phosphatase 122 93 (38-126) U/L Total Protein 8.0 7.0 (6.3-8.2) g/dL Albumin 4.3 3.8 (3.5-5.1) g/dL Intake and Output 09/14/24 09/15/24 09/15/24 23:59 07:59 15:59 Intake Total 1740 Balance 1740 Intake: Oral 1740 Other: # Unmeasured Voids 2 0
[2024-09-15 12:33] LABS: Glucose Point of Care 137 mg/dl (65-105)
[2024-09-15 17:30] LABS: Glucose Point of Care 157 mg/dl (65-105)
--- NOTE | 2024-09-15 17:39 | PM.DS ---
DS: Admitting Diagnosis Discharge Date 09/15/24 Admitting Diagnosis Bradycardia Hypertension Diabetes GERD Seizures Generalized weakness Ulcerative colitis DS: Discharge Diagnosis Discharge Diagnosis (1) Bradycardia: Code(s): R00.1 - Bradycardia, unspecified Status: Acute (2) Hypertension: Qualifiers: Hypertension type: primary hypertension Qualified Code(s): I10 - Essential (primary) hypertension Code(s): I10 - Essential (primary) hypertension Status: Chronic (3) Diabetes: Qualifiers: Diabetes mellitus type: type 2 Diabetes mellitus senior living insulin use: without senior living use Diabetes mellitus complication status: without complication Qualified Code(s): E11.9 - Type 2 diabetes mellitus without complications Code(s): E11.9 - Type 2 diabetes mellitus without complications Status: Acute (4) Gastroesophageal reflux disease: Code(s): K21.9 - Gastro-esophageal reflux disease without esophagitis Status: Acute (5) Seizure: Code(s): R56.9 - Unspecified convulsions Status: Acute (6) Generalized weakness: Code(s): R53.1 - Weakness Status: Acute (7) Ulcerative colitis: Code(s): K51.90 - Ulcerative colitis, unspecified, without complications Status: Acute DS: Summary Hospital Course Reason for hospitalization: Bradycardia Hypertension Diabetes GERD Seizures Generalized weakness Ulcerative colitis Hospital Course: This is an 79-year-old female with a significant past medical history of vascular dementia, diabetes, osteopenia, seizures, GERD, hyperlipidemia, ulcerative colitis, hypertension who presented to the hospital with weakness, altered mental status, shortness of breath. patient denies any fever, chills, nausea, vomiting, diarrhea, abdominal pain, chest pain. She states that she is been feeling more tired lately /fatigue and short of breath with activity which is new for her.Home health was at her house and noticed that her heart rate was in the 40s with no prior history. She was sent for further evaluation. Workup in the hospital included a chest x-ray which showed mild interstitial edema. Head CT was negative for any acute intracranial process. Pelvis x-ray was negative for any acute osseous finding use and shown it and uncomplicated appearing left hip arthroplasty and femoral fixation hardware. Initial labs showed a white blood cell count of 13.9, chloride 97, bicarb 32, calcium 10.4, troponin negative x2. A UA was obtained and showed 1+ urine blood, trace leukocyte, otherwise negative. Respiratory panel was negative for influenza a and B, RSV, COVID. Blood cultures were obtained and pending. EKG shown sinus bradycardia with supraventricular premature complexes with a rate of 38, QTC 367. Echocardiogram from 06/06/2023 shown normal LV systolic function with an estimated EF of 65-70%, grade 1 diastolic dysfunction. Repeat echo done today showed normal LV systolic function with an estimated EF of 65-70%, grade 1 diastolic dysfunction which is unchanged from the previous. TSH was within normal limits. Cardiology seen patient and agrees to stop metoprolol as she was only taking it for blood pressure. They suggest that she avoid AV minna blocking agents. If she needs additional blood pressure medication they can increase her amlodipine. She was instructed to keep track of her blood pressure for this week and then follow up with her primary care doctor in 1 week. She is stable for discharge at this time. Final diagnosis: Bradycardia Status at Discharge Cognitive/behavioral status at discharge: Alert oriented x3 Functional status at discharge: independent ambulation Overall status at discharge: patient is progressing back to baseline Time Spent with Patient Time attestation: Total time spent providing and/or coordinating discharge services: Time spent: Greater than 30 minutes Exam Narrative: General: In no acute distress, well nourished Cardiac: Normal S1 and S2. Heart rate currently in the 70s to 80s, No murmur, gallops or friction rubs, peripheral pulses intact. Respiratory: Lungs clear to auscultation, no adventitious lung sounds, currently on room air Gastrointestinal: soft, non-distended, non-tender, normoactive bowel sounds. : voiding without difficulty. Neuro: Alert and oriented x4 DS: Data Data Completed and Pending Completed studies during hospitalization: pelvis x-ray Head CT Chest x-ray Echocardiogram Pending studies at discharge: Blood cultures Labs on day of discharge: Labs from last 24 hours 09/15/24 09/15/24 09/15/24 17:02 12:24 08:18 WBC RBC Hgb Hct MCV MCH MCHC RDW Plt Count MPV Immature Gran % (Auto) Neut % (Auto) Lymph % (Auto) [place] % (Auto) Eos % (Auto) Baso % (Auto) Lymph # (Auto) [place] # (Auto) Eos # (Auto) Baso # (Auto) Abs Immat Gran (auto) Absolute Neuts (auto) Absolute Nucleated RBC Nucleated RBC % Puncture Site ABG pH ABG pCO2 ABG pO2 ABG PO2/FiO2 Ratio ABG HCO3 ABG O2 Saturation ABG O2 Content ABG Base Excess A-a Gradient Oxyhemoglobin Total Hemoglobin O2 Delivery Device O2 Liters/Min FiO2 Sodium Potassium Chloride Carbon Dioxide Anion Gap BUN Creatinine Estim Creat Clear Calc Estimated GFR Glucose POC Capillary Glucose 157 H 137 H 136 H Hemoglobin A1c Calcium Total Bilirubin AST ALT Alkaline Phosphatase Total Protein Albumin TSH 09/15/24 09/14/24 09/14/24 07:29 21:38 18:21 WBC 9.0 RBC 4.84 Hgb 13.7 Hct 43.2 MCV 89.3 MCH 28.3 MCHC 31.7 L RDW 14.0 Plt Count 240 MPV 9.1 Immature Gran % (Auto) 0.7 H Neut % (Auto) 63.1 Lymph % (Auto) 23.3 [place] % (Auto) 9.6 H Eos % (Auto) 2.7 Baso % (Auto) 0.6 Lymph # (Auto) 2.11 [place] # (Auto) 0.9 H Eos # (Auto) 0.2 Baso # (Auto) 0.1 Abs Immat Gran (auto) 0.06 H Absolute Neuts (auto) 5.7 Absolute Nucleated RBC 0.000 Nucleated RBC % 0.0 Puncture Site Right radial ABG pH 7.462 H ABG pCO2 36.3 ABG pO2 68.3 L ABG PO2/FiO2 Ratio 3.25 ABG HCO3 25.4 ABG O2 Saturation 94.7 L ABG O2 Content 19.1 ABG Base Excess 1.9 A-a Gradient 38.0 Oxyhemoglobin 93.3 Total Hemoglobin 14.6 O2 Delivery Device Room air O2 Liters/Min Not Reportable FiO2 21 Sodium 140 Potassium 3.6 Chloride 104 Carbon Dioxide 29 Anion Gap 7 BUN 15 Creatinine 0.78 Estim Creat Clear Calc 44 Estimated GFR > 60 Glucose 135 H POC Capillary Glucose 138 H Hemoglobin A1c Calcium 9.0 Total Bilirubin 0.6 AST 21 ALT 20 Alkaline Phosphatase 93 Total Protein 7.0 Albumin 3.8 TSH 1.200 09/14/24 17:11 WBC RBC Hgb Hct MCV MCH MCHC RDW Plt Count MPV Immature Gran % (Auto) Neut % (Auto) Lymph % (Auto) [place] % (Auto) Eos % (Auto) Baso % (Auto) Lymph # (Auto) [place] # (Auto) Eos # (Auto) Baso # (Auto) Abs Immat Gran (auto) Absolute Neuts (auto) Absolute Nucleated RBC Nucleated RBC % Puncture Site ABG pH ABG pCO2 ABG pO2 ABG PO2/FiO2 Ratio ABG HCO3 ABG O2 Saturation ABG O2 Content ABG Base Excess A-a Gradient Oxyhemoglobin Total Hemoglobin O2 Delivery Device O2 Liters/Min FiO2 Sodium Potassium Chloride Carbon Dioxide Anion Gap BUN Creatinine Estim Creat Clear Calc Estimated GFR Glucose POC Capillary Glucose Hemoglobin A1c 6.6 H Calcium Total Bilirubin AST ALT Alkaline Phosphatase Total Protein Albumin TSH Preliminary micro results at discharge 09/13/24 21:19 Blood Culture - Preliminary Blood 09/13/24 23:19 Blood Culture - Preliminary Blood Discharge Plan Discharge Attending physician on discharge: Pancho Winchester Consulting providers: Fredy Raya Discharging Clinician: Gudelia Peterson Anticipated Discharge Date/Time: 09/15/24 17:34 Patient Disposition: Home, Self-Care Activity: as tolerated Diet: as tolerated and heart healthy Discharge Instructions: Follow up with your primary care doctor in 1 week Your metoprolol was discontinued per cardiology recommendation Talk with your primary care doctor about avoiding AV minna blocking agents for blood pressure control. Keep track of your blood pressures for the next week and take with you to your follow up appointment. Cardiology recommends if you need more blood pressure control to go up on the amlodipine. Your echo is unchanged from your previous and your thyroid function is normal. Patient Language: Czech Stand Alone Forms: General Discharge Information Follow-up/Referrals: Yelitza,Servando Bernstein MD [Primary Care Provider] - 1 Week Discharge Medications: Continued amlodipine 5 mg tablet 5 mg PO DAILY pantoprazole 40 mg tablet,delayed release (DR/EC) 40 mg PO HS mesalamine 0.375 gram capsule,extended release 24hr 0.75 g PO Q12H metformin 750 mg tablet extended release 24 hr 750 mg PO DAILY vedolizumab 300 mg 300 mg IV PUSH DIRECTED Rx Instructions: Infuse 5ml every 8 weeks ferrous sulfate 324 mg (65 mg iron) tablet,delayed release (DR/EC) 324 mg PO DAILY pravastatin 40 mg tablet 80 mg PO HS losartan 100 mg tablet 100 mg PO HS rivastigmine 4.6 mg/24 hour patch 24 hour 4.6 mg topical HS aspirin 81 mg Capsule 81 mg PO QAM calcium citrate-vitamin D3 [Calcium Citrate + D] 315 mg-5 mcg (200 unit) tablet 1 tablet PO DAILY lamotrigine 200 mg tablet 200 mg PO Q12H Briviact 50 mg tablet 50 mg PO BID Discontinued metoprolol tartrate 50 mg tablet 50 mg PO Q12H Date of admission: 09/14/24 07:44 Primary Care Provider: Yelitza,Servando Bernstein Admitting Provider: Radha Segundo Attending physician on admission: Gudelia Peterson Condition: Improved Quality VTE Prophylaxis VTE prophylaxis: pharmacologic ordered
== END 2024-09-15 18:12 | disposition home or self-care (01) | DRG 309 ==
LOC: ANHED 09-14 00:01 → ANH3MEDSUR 09-14 00:36
PROVIDERS: Internal Medicine; Admitting Provider Internal Medicine; Emergency Provider Emergency Medicine; PCP Family Medicine; Visit Provider Nurse Practitioner Acute Care
DX: R00.1 Bradycardia, unspecified (principal); K51.90 Ulcerative colitis, unspecified, without complications; F01.50 Vascular dementia, unspecified severity, without behavioral disturbance, psychotic disturbance, mood disturbance, and anxiety; E11.9 Type 2 diabetes mellitus without complications; K21.9 Gastro-esophageal reflux disease without esophagitis; E78.5 Hyperlipidemia, unspecified; I10 Essential (primary) hypertension; M85.80 Other specified disorders of bone density and structure, unspecified site; R56.9 Unspecified convulsions; Z79.84 Long term (current) use of oral hypoglycemic drugs; Z79.82 Long term (current) use of aspirin
CPT/HCPCS: 36415; 36600; 70450; 71045; 72170; 80053; 81001; 82805; 82948; 83036; 83605; 83690; 83735; 84100; 84443; 84484; 85018; 85025; 85610; 85730; 87040; 87637; 93005; 93306; 99285; A9270; G0378; J1650

== ENCOUNTER 2025-01-06 19:03 | Emergency (ER) | payer MEDICARE, SELFPAY ==
--- NOTE | ~2025-01-06 | CT_ITS ---
CT brain wo con Ordering provider: Ayan Pearson MD History: 79 years Female with . head injury . Comparison: September 13, 2024 Technique: CT of the head without contrast. Radiation reduction technique utilized.The dose-length product was 605.33 mGy-cm. FINDINGS: BRAIN PARENCHYMA AND CSF SPACES: Mild leukoaraiosis and diffuse cortical atrophy. Mild atheromatous d isease. No midline shift, mass effect or hemorrhage. The brain parenchyma and CSF spaces are otherwi se normal. Right basal ganglia calcification unchanged. Tiny pineal cyst unchanged. VISUALIZED PARANASAL SINUSES: Well aerated. MASTOIDS: Well aerated. BONES: The bones appear intact. SOFT TISSUES: Visualized nasopharynx is normal. Superficial soft tissues are normal. IMPRESSION: No acute intracranial findings. Reviewed, dictated and finalized at location A.
--- OUTSIDE RECORDS SUMMARY | 2025-01-06 19:06 | XMS_ITS | Continuity of Care Document ---
Author Organization [facility] Address [address] [place] [address] Phone Care Team Providers Care Industrial Controller Name Role Phone Saul Ribera PT Unavailable [...] Diagnoses Date Provider Providers Copied on Encounter [facility], [id number], tel:[phone] [place] No Information 3 Bacilio Saul. . [facility], [id number], tel:[phone] [facility] No Information 3 Bacilio Saul. . Referring Provider: Servando Bernstein, [facility] [place], [address]. tel:[phone] [facility] [address], [id number], tel:[phone] [facility] No Information 3 Bacilio Saul. . Referring Provider: Servando Bernstein, [facility] [place], [address]. tel:[phone] [facility] [address], [id number], tel:[phone] [facility] Urge incontinence 3 Bacilio Saul. . Referring Provider: Servando Bernstein, [facility] [place], [address]. tel:[phone] [facility], [address], [place], [place], [id number], [place] tel:[phone] [facility] No Information Franklin-1 3 Bacilio Saul. . Referring Provider: Servando Bernstein, [address] [place], [address]. tel:[phone] [facility] [address], [place], [place], [id number], [place] tel:[phone] [facility] No Information Franklin-1 - 3 Bacilio Saul. . Referring Provider: Servando Bernstein, [address] [place], [address]. tel:[phone] [facility] [address] [address], [place], [place], [id number], tel:[phone] [facility] No Information Franklin-0 6 3 Bacilio Saul. . Referring Provider: Servando Bernstein, [address] [place], [address]. tel:[phone] [facility] [address] [address], [place], [place], [id number], tel:[phone] [facility] No Information Franklin-0 3 Bacilio Saul. . Referring Provider: Servando Bernstein, [address] [place], [address]. tel:[phone] [facility] [address], [place], [place], [id number], [place] tel:[phone] [facility] No Information Franklin-0 - 3 Bacilio Saul. . Referring Provider: Servando Bernstein, [address] [place], [address]. tel:[phone] [facility], [address], [place], [place], [id number], [place] tel:[phone] [facility] No Information November- 3 Bacilio Saul. . Referring Provider: Servando Bernstein, [address] [facility], [place], [address]. tel:[phone] [facility], [address] [address], [place], [place], [id number], tel:[phone] [facility] No Information November- 3 Bacilio Saul. . Referring Provider: Servando Bernstein, [address] [facility], [place], [address]. tel:[phone] [facility], [address] [address], [place], [place], [id number], tel:[phone] [facility] No Information November- 3 Bacilio Saul. . Referring Provider: Servando Bernstein, [address] [place], [address]. tel:[phone] [facility], [address] [address], [place], [place], [id number], tel:[phone] [facility] No Information 3 Bacilio Saul. . Referring Provider: Servando Bernstein, [address] [place], [address]. tel:[phone], [id number], tel:[phone] [facility] No Information November- 3 Bacilio Saul. . Referring Provider: Servando Bernstein, [address] [place], [address]. tel:[phone] [facility], [address] [address], [place], [place], [id number], tel:[phone] [facility] No Information 3 Bacilio Saul. . Referring Provider: Servando Bernstein, [address] [place], [address]. tel:[phone] [facility] [address], [place], [place], [id number], [place] tel:[phone] [facility] No Information May-0 9-202 3 Bacilio Saul. . Referring Provider: Servando Bernstein, [address] [place], [address]. tel:[phone] [facility] [address] [address], [place], [place], [id number], [place] tel:[phone] [facility] No Information May-0 3-202 3 Bacilio Saul. . Referring Provider: Servando Bernstein, [address] [place], [address]. tel:[phone] [facility], [address] [address], [place], [place], [id number], tel:[phone] [facility] No Information May-0 2-202 3 Bacilio Saul. . Referring Provider: Servando Bernstein, [address] [place], [address]. tel:[phone] [facility], [id number], tel:[phone] [facility] No Information Apr-2 7-202 3 Bacilio Saul. . Referring Provider: Servando Bernstein, [address] [place], [address]. tel:[phone] [facility], [id number], [place] tel:[phone] [facility] Unspecified urinary incontinenceUrge incontinence Apr-2 5-202 3 Bacilio Saul. . Referring Provider: Servando Bernstein, [address] [place], [address]. tel:[phone] [facility], [address] [address], [place], [place], [id number], [place] tel:[phone] [facility] No Information Apr-2 0-202 3 Bacilio Saul. . Referring Provider: Servando Bernstein, [address] [facility], [place], [address]. tel:[phone] [facility], [address] [address], [place], [place], [id number], tel:[phone] [facility] No Information Apr-1 8-202 3 Bacilio Saul. . Referring Provider: Servando Bernstein, [address] [facility], [place], [address]. tel:[phone] [facility], [address] [address], [place], [place], [id number], [place] tel:[phone] [facility] No Information Apr-1 4-202 3 Bacilio Saul. . Referring Provider: Servando Bernstein, [address] [place], [address]. tel:[phone] [facility], [address] [address], [place], [place], [id number], [place] tel:[phone] [facility] No Information Apr-1 3-202 3 Bacilio Saul. . Referring Provider: Servando Bernstein, [address] [place], [address]. tel:[phone] [facility], [address], [id number], [place] tel:[phone] [facility] No Information Apr-0 6-202 3 Bacilio Saul. . Referring Provider: Servando Bernstein, [address] [place], [address]. tel:[phone] [facility] [address], [place], [id number], [place] tel:[phone] [facility] No Information Apr-0 4-202 3 Bacilio Saul. . Referring Provider: Servando Bernstein, [address] [place], [address]. tel:[phone] [place] [address], [address] [address], [place], [place], [id number], [place] tel:[phone] [facility] No Information Mar-3 1-202 3 Bacilio Saul. . Referring Provider: Servando Bernstein, [address] [place], [address]. tel:[phone] [facility] [address], [place], [place], [id number], [place] tel:[phone] [facility] No Information Mar-3 0-202 3 Bacilio Saul. . Referring Provider: Servando Bernstein, [address] [place], [address]. tel:[phone] [facility] [address], [place], [place], [id number], tel:[phone] [facility] No Information Mar-2 3-202 3 Bacilio Saul. . Referring Provider: Servando Bernstein, [address] [place], [address]. tel:[phone] [facility], [id number], [place] tel:[phone] [facility] No Information Mar-2 1-202 3 Bacilio Saul. . Referring Provider: Servando Bernstein, [address] [place], [address]. tel:[phone] [facility] [address], [place], [id number], [place] tel:[phone] [facility] No Information Mar-1 5- 3 Bacilio Saul. . Referring Provider: Servando Bernstein, [address] [place], [address]. tel:[phone] [facility] [address], [place], [place], [id number], [place] tel:[phone] [facility] Unspecified urinary incontinenceUnsp ecified urinary incontinence Mar-1 3-202 3 Bacilio Saul. . Referring Provider: Servando Bernstein, [address] [facility], [place], [address]. tel:[phone] [facility], [address] [address], [place], [place], [id number], tel:[phone] [place] No Information Sep- 3 Bacilio Sual. . Referring Provider: Servando Bernstein, [address] [facility], [place], [address]. tel:[phone] [facility], [address] [address], [place], [place], [id number], [place] tel:[phone] [place] No Information 3 Bacilio Saul. . Referring Provider: Servando Bernstein, [address] [facility], [place], [address]. tel:[phone] [facility], [address] [address], [place], [id number], [place] tel:[phone] [place] No Information 3 Bacilio Saul. . Referring Provider: Servando Bernstein, [address] [place], [address]. tel:[phone] [address], [place], [id number], [place] tel:[phone] [place] No Information 3 Bacilio Saul. . Referring Provider: Servando Bernstein, [address] [facility], [place], [address]. tel:[phone] [facility], [address] [address], [place], [id number], [place] tel:[phone] [place] No Information 3 Fatimah Jimenez. . Referring Provider: Servando Bernstein, [address] [place], [address]. tel:[phone] [facility], [address] [address], [place], [id number], [place] tel:[phone] [place] No Information 3 Bacilio Saul. . Referring Provider: Servando Bernstein, [facility] [place], [address]. tel:[phone] [facility], [address] [address], [place], [id number], [place] tel:[phone] [place] No Information 3 Bacilio Saul. . Referring Provider: Servando Bernstein, [address] [place], [address]. tel:[phone] [facility] [address], [place], [place], [id number], tel:[phone] [place] No Information 3 Bacilio Saul. . Referring Provider: Servando Bernstein, [address] [place], [address]. tel:[phone] [facility], [id number], [place] tel:[phone] [place] No Information 3 Bacilio Saul. . Referring Provider: Servando Bernstein, [facility] [place], [address]. tel:[phone] [facility], [id number], [place] tel:[phone] [place] No Information 3 Bacilio Saul. . Referring Provider: Servando Bernstein, [facility] [place], [address]. tel:[phone] [facility] [address], [place], [place], [id number], tel:[phone] [place] No Information 3 Bacilio Saul. . Referring Provider: Servando Bernstein, [address] [facility], [place], [address]. tel:[phone] [facility] [address] [address], [place], [place], [id number], tel:[phone] [place] No Information 3 Bacilio Saul. . Referring Provider: Servando Bernstein, [address] [facility], [place], [address]. tel:[phone] [facility], [address], [place], [place], [id number], [place] tel:[phone] [place] No Information 3 Bacilio Saul. . Referring Provider: Servando Bernstein, [address] [facility], [place], [address]. tel:[phone] [facility], [address] [address], [place], [place], [id number], tel:[phone] [place] No Information 3 Bacilio Saul. . Referring Provider: Servando Bernstein, [address] [facility], [place], [address]. tel:[phone] [facility], [address] [place] [address], [place], [id number], tel:[phone] [place] No Information 3 Jama [place], [place]. Referring Provider: Servando Bernstein, [address] [facility], [place], [address]. tel:[phone] [facility], [address], [place], [place], [id number], [place] tel:[phone] [place] No Information 2 Bacilio Saul. . Referring Provider: Servando Bernstein, [address] [facility], [place], [address]. tel:[phone] [facility], [place], [place], [id number], tel:[phone] [place] No Information 2 Bacilio Mcdonald . Referring Provider: Servando Bernstein, [facility], [place], [address]. tel:[phone] [facility], [address], [place], [place], [id number], [place] tel:[phone] [place] Urge incontinence 2 Titus Nicolasla. [address] [facility], [address], [place], [address], [place]. tel: [phone] Referring Provider: Servando Bernstein, [address] [facility], [place], [address]. tel:[phone] Family History Family Member Type Diagnosis Age At Onset No Information Payers Payer name Insurance type Covered democrat ID Authoriza tion(s) Medicare [place] [id number] [facility] [id number] Social History Type Description Quantity Date Captured [...]
--- OUTSIDE RECORDS SUMMARY | 2025-01-06 19:06 | XMS_ITS | Clinical Summary ---
Author Organization [facility] Address [address] [place] [address] Care Team Providers Care Ceo Name Role Phone Servando Torre MD Primary Care Provider Mariela Denton MD Unavailable [phone] Lexis Barroso OD Unavailable [phone] Adria Burleson MD Unavailable Aldo Castro MD Unavailable [phone] Josué Cook MD Unavailable Kimberly Nicolas MD Unavailable [phone] Allergies Active Allergy Reactions Criticality Noted Date Comments Penicillins Hives High 01/30/2023 She thinks as an adult but is unsure Medications multivitamin capsule Take 1 capsule by mouth daily Active cholecalciferol (VITAMIN D-3) 2000 unit tabletIndications :Low serum vitamin D Take 1 tablet (2,000 Units total) by mouth daily Low Vitamin D level from 05/30/2022. 90 tablet 3 022 Active OneTouch Ultra Test stripIndications: Prediabetes 1 each by other route daily To check blood glucose 50 each 11 023 Active OneTouch Delica Plus Lancet 33 gauge miscIndications:P rediabetes 1 each by other route daily To check glucose with glucose monitor and strip 100 each 3 023 Active amLODIPine (NORVASC) 5 mg tablet Take 1 tablet (5 mg total) by mouth daily 90 tablet 1 023 Active ferrous sulfate ER 324 mg (65 mg iron) EC tabletIndications :Iron Deficiency Anemia Take 1 tablet (324 mg total) by mouth daily with breakfast 90 tablet 1 023 Active vedolizumab (ENTYVIO) 300 mg recon solnIndications:C hronic ulcerative colitis, unspecified complication (HCC) Infuse 5 mL (300 mg total) into a venous catheter every 8 (eight) weeks Infused at: [facility] ([facility] order in Epic under 'Procedures' tab). 1 each 5 023 Active metFORMIN XR (GLUCOPHAGE XR) 750 mg 24 hr tablet Take 1 tablet (750 mg total) by mouth daily with breakfast 30 tablet 11 023 Active aspirin 81 mg enteric coated tablet Take 1 tablet (81 mg total) by mouth daily 90 tablet 3 024 Active mesalamine (APRISO) 0.375 gram 24 hr capsuleIndication s:Ulcerative Colitis Take 2 capsules by mouth in the morning and 2 capsules in the evening 120 capsule 5 024 Active losartan (COZAAR) 100 mg tabletIndications :Hypertension associated with diabetes (HCC) Take 1 tablet (100 mg total) by mouth nightly Active pantoprazole DR (PROTONIX) 40 mg EC tabletIndications :Gastroesophageal reflux disease without esophagitis Take 1 tablet (40 mg total) by mouth nightly Active lamoTRIgine (LaMICtal) 200 mg tablet Take 1 tablet (200 mg total) by mouth 2 (two) times a day Take one tablet in AM and 1 tablet in PM Active pravastatin (PRAVACHOL) 80 mg tabletIndications :Mixed diabetic hyperlipidemia associated with type 2 diabetes mellitus (HCC),Carotid stenosis, asymptomatic, bilateral Take 1 tablet (80 mg total) by mouth nightly 30 tablet 3 024 2024 Active rivastigmine (EXELON) 4.6 mg/[address] 4.6 mg on the skin daily 30 patch 6 024 2024 Active amLODIPine (NORVASC) 2.5 mg tabletIndications :hypertension Take 1 tablet (2.5 mg total) by mouth daily Take with 5 mg tablet to bring total amlodipine dosage to 7.5 mg daily 30 tablet 3 025 2025 Active melatonin 5 mg tablet Take 1 tablet every day by oral route at bedtime. Active brivaracetam (BRIVIACT) 50 mg tablet Take 1 tablet (50 mg total) by mouth 2 (two) times a day 60 tablet 5 025 2024 Active calcium citrate-vitamin D3 (Citracal + D Maximum) 315 mg-6.25 mcg (250 unit) per tablet Take 1 tablet by mouth daily 90 tablet 3 024 2024 Discontinued brivaracetam (BRIVIACT) 50 mg tablet Take 1 tablet (50 mg total) by mouth 2 (two) times a day 60 tablet 3 025 2024 Discontinued(R eorder) ofloxacin (OCUFLOX) 0.3 % ophthalmic solution 025 2024 Discontinued prednisoLONE acetate (PRED FORTE) 1 % ophthalmic suspension 025 2024 Discontinued ketorolac (ACULAR) 0.5 % ophthalmic solution 025 2024 Discontinued Active Problems Problem Noted Date Diagnosed Date Colon cancer screening 08/31/2024 Somnolence, daytime 07/08/2024 Memory impairment 07/08/2024 Frequent [...] epilepticus 03/17/2023 At risk for falls 03/13/2023 [facility] (current) use of oral hypoglycemic fuentes gs 02/20/2023 Epilepsy, unspecified, not i ntractable, without status epilepticus 02/20/2023 Acute pulmonary edema 01/31/2023 Overview (02/07/2023): Last Assessment & Plan: [...] 09/19/2022 Type 2 diabetes mellitus without complications 0 09/19/2022 Chronic gout, unspecified, without tophus (tophi ) 09/19/2022 Encounter for Medicare annual wellness exam 05/29 Assessment & Plan (07/05/2024 3:20 PM ENGINEERING DRAFTER): A(n) yearly Medicare Annual Wellness Visit has [...] months Assessment & Plan (06/26/2023 2:02 PM ENGINEERING DRAFTER): A(n) yearly Medicare Annual Wellness Visit has [...] months Assessment & Plan (06/23/2022 3:06 PM ENGINEERING DRAFTER): A(n) initial Medicare Annual Wellness Visit has [...] (06/19/2022): Added automatically from request for surgery [id number] Ear ringing 03/03/2013 Asymmetrical sensorineural hearing loss 03/03/20 13 Stress fracture 07/07/2012 Arthralgia of hip 02/06/2011 Resolved Problems Problem Noted Date Diagnosed Date Resolved Date Hospital discharge follow-up 06/11/2023 08/07/2023 Assessment & Plan (06/11/2023 1:42 PM ENGINEERING DRAFTER): I have reviewed the hospital record, medications, [...] Encounters Date Type Department Care Team Description 12/21/2024 9:15 AM CDT Office Visit [facility] Primary Care at [address] [phone] Servando Torre MD Hypertension associated with diabetes (HCC) (Primary Dx); Mixed diabetic hyperlipidemia associated with type 2 diabetes mellitus (HCC); Screening for osteoporosis; Osteopenia of both hips; Seizure (HCC) 12/11/2024 Results Follow-Up [facility] Gastro[facility] [address] Advanced Medicine 12th [place] [address] [place] [address] Josué Cook MD Surgical pathology 12/07/2024 1:01 PM CDT Anesthesia Event [facility] [address] [facility] [address] [place] [address] Luis George MD 12/07/2024 12:30 PM CDT - 12/07/2024 1:00 PM CDT Surgery [facility] [address] [address] Josué Cook MD COLON REMOVAL SNARE 12/07/2024 11:14 AM CDT - 12/07/2024 2:22 PM CDT Hospital Encounter [facility] [address] [address] Josué Cook MD Chronic ulcerative colitis, unspecified complication (HCC); Colon cancer screening Discharge Disposition: Discharge to home or self care 12/02/2024 Telephone [facility] [address] [place] [phone] Marie Laureano RN GI PROCEDURE 3 DAY PRE CALL 11/30/2024 2:45 PM CDT Office Visit [facility] Medicine [address] [place] [phone] Riri Gonzalez PA Primary osteoarthritis of both knees (Primary Dx) 11/30/2024 Telephone [facility] [address] [place] [phone] Marie Laureano, ELMO GI PROCEDURE 7 DAY PRE CALL 11/10/2024 12:30 PM CDT Office Visit [facility] Epilepsy [address] [place] [address] for Advanced Medicine 6th [place] [phone] Adria Burleson MD Seizure (HCC) (Primary Dx) 11/01/2024 3:00 PM CDT Office Visit [facility] Primary Care at [address] [address] Servando Torre MD Preoperative evaluation to rule out surgical contraindication (Primary Dx) 10/21/2024 3:00 PM CDT Ancillary Procedure [facility] Imaging at [address] [phone] Right hip pain 10/21/2024 2:30 PM CDT Office Visit [facility] Care at [address] [phone] Tammy Meehan NP Right hip pain (Primary Dx); Fall, initial encounter 10/21/2024 Results Follow-Up [facility] at [address] [phone] Tammy Meehan NP XR Hip Right W Pelvis 2 or 3 Views 10/18/2024 Results Follow-Up [facility] Primary Care at [address] [phone] Marixa San, CONSTANZA XR Ribs Left W PA Chest 3 or More Views 10/15/2024 Telephone [facility] Primary Care at [address] [phone] Servando Torre MD x Ray 10/13/2024 Telephone [facility] Primary Care at [address] [phone] Servando Torre MD Billing Question 10/12/2024 11:30 AM CDT Ancillary Procedure [facility] Imaging at [address] [address] Fall, initial encounter 10/11/2024 Telephone [facility] Primary Care at [address] [phone] Servando Torre MD Needing a pre op appointment 10/08/2024 Telephone [facility] Primary Care at [address] [phone] Servando Torre MD Medical Question/Miscellaneous from Last 3 Months Immunizations Immunization Administration [...] FRACTURE SURGERY 07/28/2010 - 07/27/2011 Left COLONOSCOPY CATARACT EXTRACTION Medical History Medical History Date Comments Ulcerative colitis (HCC) 2019 Hypertension Hyperlipidemia GERD (gastroesophageal reflux disease) Diabetes mellitus (HCC) Anemia 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 Never 12/07/2024 Average Number of Drinks Not on file 025 Frequency of Binge Drinking Not on file 11/25 PHQ-2 Answer Date Recorded PHQ-2 Total Score (If total score is 3 or more points, staff should administer the PHQ-9) 0 12/21/2024 Personal Safety Answer Date Recorded Have you ever been in or are you currently in a harmful physical or emotional relationship or is someone making you feel afraid or unsafe? Denies 12/07/2024 Comments No Sex and Gender Information Value Date Recorded Sex Assigned at Not on file Legal Sex Female 9:30 AM ENGINEERING DRAFTER Gender Identity Female 04/05/2022 6:17 PM CDT Sexual Orientation Straight 04/05/2022 6: 17 PM CDT Obstetrics History Last Filed Vital Signs Vital Sign Reading Time Taken Comments Blood Pressure 150/70 12/21/2024 9:20 AM CDT Pulse 94 12/21/2024 9:20 AM CDT Temperature 36.9 C (98.4 F) 12/21/2024 9:20 AM CDT Respiratory Rate 18 12/21/2024 9:20 AM CDT Oxygen Saturation 94% 12/21/2024 9:20 AM CDT Inhaled Oxygen Concentration - - Weight 62.1 kg (137 lb) 12/21/2024 9:20 AM CDT Height 157.5 cm (5' 2) 12/21/2024 9:20 AM CDT Body Mass Index 25.06 12/21/2024 9:20 AM CDT Plan of Treatment Health Maintenance Due Date Last Done Comments Hepatitis B Screening 1963 Covid-19 Vaccine ( season) 2024 05/30/2022, 05/18/2021, 10/20/2020, Additional history exists Osteoporosis Screening-Bone Density Scan 12/12/2024 12/12/2022, 12/12/2022 Foot Exam 04/01/2025 04/01/2024, 09/0 11/2023, 12/19/2022 Hemoglobin A1C 06/23/2025 12/21/2024, 02/2 11/2024, 07/02/2024, Additional history exists Lipid Panel 07/02/2025 07/02/2024, 09/0 09/2023, 09/30/2023, Additional history exists eGFR 07/02/2025 07/02/2024, 09/0 09/2023, 09/30/2023, Additional history exists Well Visit 65+ 07/05/2025 07/05/2024, 05/30, 06/19/2022 DTaP/Tdap/Td Vaccine (1 - Tdap) 07/27/2025 Postponed from 1954 (Insurance / Financial) Albumin Creatinine Ratio, Urine 09/21/2025 09/21/2024, 07/02/2024, 03/21/2023 Fall Risk Assessment 12/07/2025 12/07/2024, 09/21/2024, 07/05/2024, Additional history exists Depression Screening 12/21/2025 12/21/2024, 09/21/2024, 07/05/2024, Additional history exists Dilated Eye Exam 12/22/2025 12/22/2024, , 11/29/2022 Zoster Vaccine Completed 08/01/2020, 05/30/2020 Pneumococcal vaccine 65+ Completed 03/27/2023 Influenza Vaccine Completed 05/05/2024, , 05/06/2022 Procedures Procedure Name Priority Date/Time Associated Diagnosis Comments HM DIABETES EYE EXAM Routine 12/22/2024 8:42 AM CDT POCT HEMOGLOBIN A1C Routine 12/21/2024 9 :55 AM CDT Hypertension associated with diabetes (HCC) SURGICAL PATHOLOGY Routine 12/07/2024 1: 29 PM CDT Chronic ulcerative colitis, unspecified complication (HCC) Colon cancer screening COLONOSCOPY 12/07/2024 1:12 PM CDT COLON REMOVAL SNARE 12/07/2024 1 :01 PM CDT Chronic ulcerative colitis, unspecified complication (HCC) Colon cancer screening POCT GLUCOSE DEVICE Routine 12/07/2024 12:53 PM CDT UT ARTHROCENTESIS ASPIR&/INJ MAJOR JT/BURSA W/O US Routine 11/30/2024 2:45 PM CDT Primary osteoarthritis of both knees XR HIP RIGHT W PELVIS 2 OR 3 VIEWS Schedule SHIRA, Read SHIRA (Appt Today, Awaiting Results) 10/21/2024 3:16 PM CDT Right hip pain XR RIBS LEFT W PA CHEST Schedule Routine, Read Routine (OP Routine) 10/12/2024 11:27 AM CDT Fall, initial encounter ALBUMIN CREATININE RATIO, URINE Routine 09/21/2024 10:05 AM ENGINEERING DRAFTER Hypertension associated with diabetes (HCC) EGFR Routine 07/02/2024 10:20 AM ENGINEERING DRAFTER Weakness generalized LIPID PANEL Routine 07/02/2024 10:20 AM ENGINEERING DRAFTER Hypertension associated with diabetes (HCC) DEXA AXIAL SKELETON BONE DENSITY 1 OR MORE SITES Schedule Routine, Read Routine (OP Routine) 12/12/2022 2:33 PM CDT Screening for osteoporosis Asymptomatic menopausal state from Last 3 Months or Most Recently Relevant to Health Maintenance Results * DIABETES EYE EXAM (12/22/2024 8:42 AM CDT) SCRIBED DIABETIC DILATED EYE EXAM Normal us Lexis Meier OD HEALTH MAINTENANCE F inal Result * (ABNORMAL) POCT hemoglobin A1c (12/21/2024 9:55 AM CDT) Hemoglobin A1C, POC 7.0(A) 4.0 - 5.6 % Blood 12/21/2024 9:55 AM CDT us Servando Torre MD POINT OF CARE TEST ORDERABL ES Final Result * Surgical pathology (12/07/2024 1:29 PM CDT) Tissue (Polyp(s), colon/colorectal, esophageal, gastric) 12/07/2024 1:29 PM CDT Narrative PATHOLOGY BJ - 12/08/2024 12:42 PM CDT EPIC results best viewed via link to PDF [facility] [place] [place] [address] Note to Patients: This report may contain a detailed description of human tissue sent by a health care provider to the laboratory for pathologic evaluation. The content of this report is essential for diagnosis and may provide important critical findings. This information may be unfamiliar to patients to review without a medical professional present. It is advised that the patient review this report in the presence of a health care provider who can answer questions and explain the details. SURGICAL PATHOLOGY REPORT FINAL Patient Name: RADHA ALLEN Gender: F : 1945 (Age: 79) Address: [address] [facility], [place] [address] Hospital #: [id number] Taken:12/07/2024 Received:12/07/2024 Reported: 12/08/2024 Patient [facility]: [facility] Service: Gastro Location: Physician(s): Clare Russell M.D. Diagnosis: Large bowel, sigmoid colon, polyp, polypectomy/biopsy - Inflammatory polyp xl/12/08/2024 12:42 By this signature, I attest that the above diagnosis is based upon my personal examination of the slides(and/or other material indicated in the diagnosis). Camacho Knutson MD Report Electronically Reviewed and Signed Out By Camacho Knutson MD 12/08/2024 12:42:01 History: The patient is an 79-year-old woman presenting for chronic ulcerative colitis, unspecified complications; screening for colon cancer. Operative procedure: Colonoscopy. Specimen(s) Received: A: Sigmoid inflammatory polyp Gross Description: Received in formalin, labeled with the patient s identifiers and sigmoid inflammatory polyp and consists of a single garcia-pink fragment(s) of soft tissue measuring 0.5 cm in greatest dimension. Also included is a fragment of possible vegetable material. Labeled A1. Jar 0. sxst/12/07/2024 16:40 PA(s): Marisol Braswell By this signature, I attest that the above diagnosis is based upon my personal examination of the slides(and/or other material). Addenda/Procedures The performance characteristics of some immunohistochemical stains, fluorescence in-situ hybridization tests and immunophenotyping by flow cytometry cited in this report (if any) were determined by the Surgical Pathology and Flow Cytometry Departments at [facility] as part of an ongoing quality assurance monitor chassis program and in compliance with federally mandated regulations drawn from the Clinical Laboratory Improvement Act of 1988 (CLIA '88). Some of these tests rely on the use of analyte specific reagents and are subject to specific labeling requirements by the US Food and Drug Administration. Such diagnostic tests may only be performed in a facility that is certified by the Department of Health and Human Services as a high complexity laboratory under CLIA '88. The FDA has determined that such clearance or approval is not necessary. This test is used for clinical purposes. It should not be regarded as investigational or for research. Nevertheless, federal rules concerning the medical use of analyte specific reagents require that the following disclaimer be attached to the report: This test was developed and its performance characteristics determined by the Surgical Pathology and Flow Cytometry Departments of [facility]. It has not been cleared or approved by the U. S. Food and Drug Administration. IMAGES AND SCANNED DOCUMENTS, IF INCLUDED, ONLY VIEWABLE IN PDF VERSION OF REPORT us Josué Cook MD LAB PATHOLOGY ORDERABL ES Final Result PATHOLOGY [facility] 3rd Floor [place], [place] [phone] * Colonoscopy (12/07/2024 1:12 PM CDT) Anatomical Region Laterality Modality Other Narrative Procedure Note Josué Cook MD - 12/07/2024 1:12 PM CDT GI ENDOSCOPY [facility] Patient Name: Radha Allen Procedure Date: 12/07/2024 1:12 PM Date of : 1945 Admit Type: Outpatient Age: 79 Gender: Female Attending MD: Josué Cook M.D. Room: [facility] ENDOSCOPY ROOM 8 Note Status: Finalized Procedure: Colonoscopy Indications: High risk colon cancer surveillance: Ulcerative pancolitis of 8 (or more) years duration Referring MD: Josué Cook M.D. Providers: Josué Cook M.D., Annel Mauricio M.D. Medicines: Monitored Anesthesia Care Complications: No immediate complications. Estimated Blood Loss: Estimated blood loss: none. Procedure: Pre-Anesthesia Assessment: - Immediately prior to administration ofmedications, the patient was re-assessed for adequacy to receive sedatives. - The risks and benefits of the procedure and the sedation options and risks were discussed with the patient. All questions were answered and informed consent was obtained. The benefits, risks and alternatives of theprocedure and sedation were discussed and informed consentwas obtained. All questions were answered. Please referto the signed informed consent document in the medical record. The scope was passed under direct vision.The [id number] endoscope was introduced through the anus and advanced to the terminal ileum. The colonoscopy was performed without difficulty. The patient tolerated the procedure well. The qualityof the bowel preparation was good. The bowelpreparation used was GoLYTELY. Findings: The perianal and digital rectal examinations were normal. Inflammation was not found based on the endoscopic appearance of the mucosa in the colon. This was graded as Martinez Score 0 (normal orinactive disease), and when compared to the previous examination, the findings are in remission. A 6 mm polyp was found in the sigmoid colon. The polyp was sessile.The polyp was removed with a cold snare. Resection and retrieval were complete. Multiple small and large-mouthed diverticula were found in thesigmoid colon. There was no evidence of diverticular bleeding. Impression: - Single polyp resected and retrieved - Sigmoid diverticuli - Internal hemorrhoids - Mucosal remission Recommendation: - Await pathology results. Attending Participation: I was present and participated during the entire procedure, including non-neumann portions. Electronically Signed by Josué Cook M.D. Josué Cook M.D. 12/07/2024 1:41:49 PM . Number of Addenda: 0 Note Initiated On: 12/07/2024 1:12 PM us Josué Cook MD ENDOSCOPY PROCEDURES F inal Result * POCT glucose (12/07/2024 12:53 PM CDT) Glucose, POC 97 70 - 199 mg/dL Blood 12/07/2024 12:5 3 PM CDT 12/07/2024 12:53 PM CDT Josué Cook MD LAB POCT ORDERABLES - DEVICE Final Result [facility] [place] [address] * UT ARTHROCENTESIS ASPIR&/INJ MAJOR JT/BURSA W/O US (11/30/2024 2:45 PM CDT) Narrative Riri Gonzalez PA - 11/30/2024 2:45 PM CDT Riri Gonzalez PA 11/30/2024 3:11 PM Large Joint (Hip, Knee, Shoulder) Injection: bilateral [...] guidance: No Medications Right Large Joint Injection: 80 mg methylPREDNISolone acetate 80 mg/mL; 3 mL lidocaine 20 mg/mL (2 %) Medications Left Large Joint Injection: 80 mg methylPREDNISolone acetate 80 mg/mL; 3 mL lidocaine 20 mg/mL (2 %) Patient tolerance: Patient tolerated the procedure well with no immediate complications Riri [facility]/BEDSIDE ORDER [place] Final Result * XR Hip Right W Pelvis 2 or 3 Views (10/21/2024 3:16 PM CDT) Anatomical Region Laterality Modality Lower Extremities, Hip, Pelvis Right D igital Radiography 10/21/2024 4:02 PM CDT Narrative 10/21/2024 4:03 PM CDT EXAM DESCRIPTION: XR HIP RIGHT 2 OR 3 VIEWS W PELVIS REASON FOR STUDY: pain Pt complains of hip pain after falling last week. No prior surgery or fx. Prior left hip revision TECHNIQUE: 2 radiographic views of the right hip with one view of the pelvis. COMPARISON: None FINDINGS: Left hip arthroplasty in near anatomic alignment. There is moderate osteoarthritis of the right hip. No acute fracture or dislocation. IMPRESSION: No acute osseous abnormality. Moderate osteoarthritis of the right hip. THIS IS AN ELECTRONICALLY VERIFIED FINAL REPORT 10/21/2024 4:03 PM - Electronically signed by Dylan Fitzpatrick M.D. KR T: Report ID: [id number] Reading Location: [place] [address] Procedure Note Dylan Fitzpatrick MD - 10/21/2024 EXAM DESCRIPTION: XR HIP RIGHT 2 OR 3 VIEWS W PELVIS REASON FOR STUDY: pain Pt complains of hip pain after falling last week. No prior surgery or fx. Prior left hip revision TECHNIQUE: 2 radiographic views of the right hip with one view of thepelvis. COMPARISON: None FINDINGS: Left hip arthroplasty in near anatomic alignment. There ismoderate osteoarthritis of the right hip. No acute fracture or dislocation. IMPRESSION: No acute osseous abnormality. Moderate osteoarthritis of the right hip. THIS IS AN ELECTRONICALLY VERIFIED FINAL REPORT 10/21/2024 4:03 PM - Electronically signed by Dylan Fitzpatrick M.D. KR T: Report ID: [id number] Reading Location: [place] [address] Tammy Meehan NP IMG XR PROCEDURES Final Result * XR Ribs Left W PA Chest 3 or More Views (10/12/2024 11:27 AM CDT) Anatomical Region Laterality Modality Rib, Chest Left Digital Radiogra phy 10/18/2024 4:51 AM CDT Narrative 10/18/2024 4:58 AM CDT EXAM DESCRIPTION: XR RIBS LEFT W PA CHEST 3 OR MORE VIEWS REASON FOR STUDY: accidental fall Pt complains of left anterior rib pain under left breast after falling Friday. No surgery to heart, lungs, or chest. Non-smoker. Prior bilateral rib fractures. TECHNIQUE: PA views of the chest and AP and oblique views of the left ribs COMPARISON: Chest radiograph dated 02/01/2023. FINDINGS: RIBS: There is cortical irregularity involving the posterolateral left 3rd and 4th ribs suspicious for nondisplaced fractures. In addition, there are minimally displaced fractures involving the lateral 3rd, 4th, 5th and 6th ribs. The lower ribs are limited on this examination dated superimposition of the ribs themselves as well as adjacent osseous structures. VISUALIZED LUNGS: There is coarsening of interstitial markings in the lungs. Minimal bibasilar opacity which could reflect atelectasis or developing airspace disease. Chronic blunting of the left costophrenic angle. No large effusion or pneumothorax. Cardiac silhouette normal in size. Atherosclerotic vascular calcifications. Other: Osteoarthritis of the left shoulder greater than the right. Thoracic spondylosis. Age indeterminate compression fracture involving T12 age indeterminate. Dedicated thoracic imaging IMPRESSION: 1. Minimally displaced fractures involving the left lateral 3rd through 6th ribs as well as potential nondisplaced fractures involving the posterolateral left 3rd and 4th ribs. 2. Age indeterminate compression fracture involving T12. Correlate with point tenderness. Dedicated thoracic spine imaging with CT or MRI can be performed. 3. Blunting of the left costophrenic angle, similar to prior examination which could reflect pleural fluid or pleural thickening. 4. Mild basilar opacities, atelectasis versus airspace disease. THIS IS AN ELECTRONICALLY VERIFIED FINAL REPORT 10/18/2024 4:58 AM - Electronically signed by Kailey Layton M.D. TW T: Report ID: [id number] Reading Location: [id number] Procedure Note Kailey Layton MD - 10/18/2024 EXAM DESCRIPTION: XR RIBS LEFT W PA CHEST 3 OR MORE VIEWS REASON FOR STUDY: accidental fall Pt complains of left anterior rib pain under left breast after fallingFriday. No surgery to heart, lungs, or chest. Non-smoker. Prior bilateral rib fractures. TECHNIQUE: PA views of the chest and AP and oblique views of the leftribs COMPARISON: Chest radiograph dated 02/01/2023. FINDINGS: RIBS: There is cortical irregularity involving theposterolateral left 3rd and 4th ribs suspicious for nondisplaced fractures. In addition, there are minimally displaced fractures involving the lateral 3rd, 4th,5th and 6th ribs. The lower ribs are limited on this examination dated superimposition of the ribs themselves as well as adjacent osseousstructures. VISUALIZED LUNGS: There is coarsening of interstitial markings in thelungs. Minimal bibasilar opacity which could reflect atelectasis or developing airspace disease. Chronic blunting of the left costophrenic angle. Nolarge effusion or pneumothorax. Cardiac silhouette normal in size.Atherosclerotic vascular calcifications. 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 Age indeterminate compression fracture involving T12 age indeterminate. Dedicated thoracic imaging IMPRESSION: 1. Minimally displaced fractures involving the left lateral 3rd [id number] ribs as well as potential nondisplaced fractures involving theposterolateral left 3rd and 4th ribs. 2. Age indeterminate compression fracture involving T12. Correlate with point tenderness. Dedicated thoracic spine imaging with CT or MRI can be performed. 3. Blunting of the left costophrenic angle, similar to prior examination which could reflect pleural fluid or pleural thickening. 4. Mild basilar opacities, atelectasis versus airspace disease. THIS IS AN ELECTRONICALLY VERIFIED FINAL REPORT 10/18/2024 4:58 AM - Electronically signed by Kailey Layton M.D. TW T: Report ID: [id number] Reading Location: [id number] [place] [employer] MEDICINE SPECIALIST IMG XR PROCEDURES Final Result * Albumin Creatinine Ratio, Urine (09/21/2024 10:05 AM ENGINEERING DRAFTER) Albumin Ur <12.0 mg/L Comment: Interpretive Data No reference range established. Current interpretive data was last revised 2018. Creatinine Ur 16.3 mg/dL AILEEN Comment: Interpretive Data No reference range established. Current interpretive data was last revised 2018. Albumin Creatinine Ratio, Ur See Comment 1 - 29 AILEEN MATTHEW Comment:Unable to calculate Urine 09/21/2024 10:0 5 AM ENGINEERING DRAFTER 09/21/2024 10:55 PM ENGINEERING DRAFTER Servando Torre MD LAB URINE ORDERABLES Final Result Performing Organization Address City/State/[facility] Co de Phone Number AILEEN [address] [place] [address] * eGFR (07/02/2024 10:20 AM ENGINEERING DRAFTER) eGFR 66 >=60 mL/min/1. 73 m2 Comment: [...] reviewed 2021. Blood 07/02/2024 10:2 0 AM ENGINEERING DRAFTER 07/02/2024 5:35 PM ENGINEERING DRAFTER us Kimberly Nicolas MD LAB BLOOD ORDERABLES Final Resu lt AILEEN MATTHEW [id number] [address] Department of Laboratories [place] [phone] * (ABNORMAL) Lipid panel (07/02/2024 10:20 AM ENGINEERING DRAFTER) Cholesterol 190 30 - 199 mg/dL Comment: [...] AILEEN MATTHEW Blood 07/02/2024 10:2 0 AM ENGINEERING DRAFTER 07/02/2024 5:00 PM ENGINEERING DRAFTER us Servando Torre MD LAB BLOOD ORDERABLES Final Result AILEEN MATTHEW [address] [place] [address] * Dexa Axial Skeleton Bone Density 1 or 2 Site (12/12/2022 2:33 PM CDT) Anatomical Region Laterality Modality Body N/A Radiographic Keyanna ging Narrative 12/12/2022 3:00 PM CDT Patient Name: Radha Allen Date of : 1945 Date of scan: 12/12/2022 Bone mineral density was performed on a HoloXYZE Discovery Densitometer. Based on machine cross-calibration and [...] interpretation were performed by Josep Mathwe MD who is certified by the International Society of Clinical Densitometry. [id number] Servando Torre MD IMG DXA PROCEDURES Final Re sult from Last 3 Months or Most Recently Relevant to Health Maintenance Insurance MEDICARE [facility] MEDICARE SUPPLEMENT MEDICARE [employer] MEDICARE SUPPLEMENT MEDICARE [facility] MEDICARE [facility] Advance Directives For more information, please contact: [phone] * Full Code (Latest Code Status on [...] 9:30 AM 11/29/2022 3:28 PM Care Teams Ceo Relationship Specialty Start Date End Date Servando Torre MD [address] [facility] [address] [place] [address] PCP - General Family Medicine 06/19/22 Mariela Denton MD [address] [place] [address] Referring Physician Gastroenterology 06/19/22 Lexis Barroso OD [address] [address] Center Machine Operator 09/19/22 Adria Burleson MD [address] [facility] [address] [place] [address] Consulting Physician Neurology 09/21/24 Aldo Castro MD [address] [place] [address] Referring Physician Ophthalmology 11/01/24 Josué Cook MD [address] [facility] [address] [place] [address] Consulting Physician Gastroenterology 11/01/24 Kimberly Nicolas MD [address] [facility] [address] [place] [address] Consulting Physician Neurology 12/21/24
--- OUTSIDE RECORDS SUMMARY | 2025-01-06 19:06 | XMS_ITS | Encounter Summary ---
Author Organization [facility] Address [address] [place] [address] Phone Care Team Providers Care Data Scientist Name Role Phone Servando Torre MD Primary Care Provider Mariela Dentno MD Unavailable [phone] Lexis Barroso OD Unavailable [phone] Adria Burleson MD Unavailable Aldo Castro MD Unavailable Josué Cook MD Unavailable [phone] Kimberly Nicolas MD Unavailable [phone] Encounter Details Date Type Department Care Team (Late st Contact Info) Description 12/11/2024 Results Follow-Up [facility] Gastroenterology [address] [facility] Advanced Medicine 12th [place] [address] [place] [address] Josué Cook MD [address] [facility] [address] [place] [address] Surgical pathology Social History Tobacco Use Types Packs/Day Years [...] points, staff should administer the PHQ-9) 0 09/21/2024 Personal Safety Answer Date Recorded Have you ever been in or are you currently in a harmful physical or emotional relationship or is someone making you feel afraid or unsafe? 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 Josué Cook MD Pipe Bowl Paint Trimmerwhipper Department of Gastroenterology [facility] documented in this encounter Plan of Treatment Not on file documented as of this encounter Visit Diagnoses Not on filedocumented in this encounter Care Teams Data Scientist Relationship Specialty Start Date End Date Servando Torre MD [address] [address] PCP - General Family Medicine 06/19/22 Mariela Denton MD [address] [place] [address] Referring Physician Gastroenterology 06/19/22 Lexis Barroso OD [address] [place] [address] Electric Sign Assembler 09/19/22 Adria Burleson MD 1 [facility] [address] [place] [address] Consulting Physician Neurology 09/21/24 Aldo Castro MD [address] [place] [address] Referring Physician Ophthalmology 11/01/24 Josué Cook MD 1 [facility] [address] [place] [address] Consulting Physician Gastroenterology 11/01/24 Kimberly Nicolas MD [address] [facility] [address] [place] [address] Consulting Physician Neurology 12/21/24 documented as of this encounter
--- OUTSIDE RECORDS SUMMARY | 2025-01-06 19:06 | XMS_ITS | Data Portability ---
Author Organization [facility] Address [address] [place] [address] Care Team Providers Care Industrial X Ray Operator Name Role Phone ISABELLE JOSEPH Nurse Practitioner Unavailable SERVANDO TORRE Primary Care Provider NAHOMY RATLIFF Corporate Paralegal Unavailable Assessment Encounter Date Assessment Date Assessment LastModified by Organization Details LastModified Time 10/12/2024 10/12/2024 This patient meets the criteria for Guiding an Improved Dementia Experience (GUIDE) services due to the complexity of the condition and the associated risks. The following services will be implemented to ensure continuity of care and support the patient in navigating this condition. The total time caring for the patient today was 100 minutes. This includes time spent: - Obtaining and/or reviewing separately obtained history - Performing a medically appropriate examination and/or evaluation - Counseling and educating the patient/family/ca regiver - Documenting clinical information in the EHR - Care coordination not separately reported. The following screeners were administered today by the provider with interpretation and planning by the provider: see below The patient-centered treatment plan will include: 1. Health System Navigation and Care Coordination The CN will assist with coordination of home- and community-based care, and assist with communication between all care providers. This may include care transitions, including hospital discharge and ED visits. 2. Self-Advocacy and Health Education Dementia educational support will be provided to empower the dyad in decision making, enhance their ability to participate in care, and ensure they understand their treatment plan. 3. Social Determinant of Health needs: The navigator will connect the patient and caregiver with community-based resources to address SDOH issues as needed. This may include transportation services, or exploring financial assistance programs. 4. Behavioral Change and Support: The patient will be provided with tools to manage dementia-related behavioral changes. Emotional and social support services will be available to help the dyad adjust their daily routine and cope with the impact of their dementia. This may include referral to social work as appropriate. 5. Promoting safety and independence at home and in the community: The navigator will characterize the patient s baseline function, mobility, and daily routine. Educational support will be provided to address individual health and safety risks with the goal of preservation of functional mobility. Identified safety concerns will be addressed through personalized care planning, which may include home safety evaluation, and referrals to resources as appropriate. Not available 10/12/2024 22:51:54 10/26/2024 10/26/2024 Type of dementia : Vascular Stage of cognitive impairment: Mild Concerns: Behaviors, falls, need for respite care Goals: Effectively manage behaviors, falls, and other disease symptoms/challeng es Information/Resou rces: Educational resources to help manage behaviors; Additional options for respite Support: CN to meet with dyad monthly Total time: 150 minutes were spent in outreach, chart review, direct patient contact, and care coordination. Medical & Behavioral Plan Needs Follow-Up Plan: Dyad to have access to MD as needed for clinical needs Caregiver Support & Education Plan Education Needed? Yes Topics of Education Provided: Behaviors Resources Needed? Yes Types of Resources Shared: Additional options for respite support Social Determinants & Safety Needs Plan Home Safety Interventions Needed? Yes Home Safety Interventions Shared: Additional options for respite support Social Determinants Support Needed? No Visit & Follow-Up Plan Provider Consult Needed? Not at this time Longitudinal Questions identified areas of concerns? 2 falls since last MD visit Next Foot Setter Follow-Up: 12/07/24 Next MD/STOCK LAYER Visit Scheduled: NA (as needed) Duration of Encounter(hours, minutes): 58 minutes leonel Not available 10/26/2024 10:49:06 Plan of Treatment Reminders Order Date Submit Date Provider Last Modified By Organization Details Last Modified Time Details Appointments Care Manageme nt Follow Up 30 2024 09:00A M Mike Mccord Navigator Not available Not available Not available Lab None recorded . Referral None recorded . Procedures None recorded . Surgeries None recorded . Imaging None recorded . Medication Orders None recorded . Patient TargetsNo targets recorded. Patient Instructions Encounter Date Encounter Id Patient Instructions Last Modified By Organization Details Last Modified Time 10/12/2024 [id number] collateral interview* [email or web address] Not available 10/14/2024 15:43:57 functional assessment screening* Not available 10/14/2024 15:43:56 assessment and care planning for patient with cognitive impairment* Not available 10/14/2024 15:43:57 PROMIS scale v1. 2 - global health* Not available 10/14/2024 15:43:57 health literacy assessment* Not available 10/14/2024 15:43:56 attending physician attestation/examin ed* Not available 10/14/2024 15:43:57 medication discrepancy tool* Not available 10/14/2024 15:43:56 chronic care management and care planning* Not available 10/14/2024 15:43:57 collaborative ca re management* BRITTANY Not available 10/26/2024 10:38:33 10/26/2024 [id number] Areas of Need/Visit notes: - Lisa is an 79 yo female with mild vascular dementia. She is living at [facility] in [place]. She needs help with meals, meds, and showers, and she is capable of self care. Daughter and 2 granddaughters rotate staying overnight to provide evening shower, getting into bed, and morning care. There are also cameras in apt for falls. - She is somewhat active with activities/sociali zation within [facility] community; data sciences director helps with encouraging/escort ing. - She uses a walker but is unsteady and has tendency to fall often. - Lisa exhibits some challenging behaviors, such as agitation and occasional aggressive behavior toward family (scratching, squeezing). - Family is currently looking into [facility] and similar services to find independent caregivers to provide as-needed overnight respite care. They expressed interest in receiving assistance finding other options for respite agencies, as well as resources to help with managing behaviors. leonel Not available 10/26/2024 10:46:15 Reason for Referral None Reported. Results Created Date Observation Date Name Description Value Unit Range Abnormal Flag Note LastModifiedBy Organization Detail LastModifiedTime 10/27/1910/26/2024 melva worthington care manag ement * safety assessment checklist (sac) Not Available Not Available 07/2024 10:40:09 10/27/19 25 10/26/2024 colla borat ander care manag ement * (sac) has the patient fallen recently? Yes Not Available Not Available 10:40:09 10/27/19 25 10/26/2024 colla borat ander care manag ement * (sac) does the patient seem unsteady on their feet? Yes Not Available Not Available 10/26/2024 10:40:09 10/27/19 25 10/26/2024 colla borat ander care manag ement * (sac) are you limiting outings or travel due to fear of falling? No Not Available Not Available 07/2024 10:40:09 10/27/19 25 10/26/2024 colla borat ander care manag ement * (sac) has the patient experienced unsteadiness or sustained falls? Yes Not Available Not Available 07/2024 10:40:09 10/27/19 25 10/26/2024 [facility]a [facility] ander care manag ement * (sac) are firearms present in the home? No Not Available Not Available 10:40:09 10/27/19 25 10/26/2024 [facility] ander care manag ement * (sac) has the patient gotten lost in familiar places or wandered? No Not Available Not Available 10:40:09 10/27/19 25 10/26/2024 colla borat ander care manag ement * (sac) does the patient ever try to leave the house or ask to go home when already at home? No Not Available Not Available 07/2024 10:40:09 10/27/19 25 10/26/2024 colla borat ander care manag ement * (sac) has the patient ever come home much later than expected without explanation? No Not Available Not Available 10/26/2024 10:40:09 10/27/19 25 10/26/2024 colla borat ander care manag ement * (sac) are there any concerns about the patient harming themselves or others? Yes Not Available Not Available 0 10/26/2024 10:40:09 10/27/19 25 10/26/2024 colla borat ander care manag ement * (sac) are there working smoke detectors and fire extinguisher s in the home? Yes Not Available Not Available 07/2024 10:40:09 10/27/19 25 10/26/2024 colla borat ander care manag ement * (sac) do you have any concerns about the patient's cooking or eating habits? No Not Available Not Available 07/2024 10:40:09 10/27/19 25 10/26/2024 colla borat ander care manag ement * (sac) have you noticed any burned pans or other signs of issues with the stove or other home appliances? No Not Available Not Available 10/26/2024 10:40:09 10/27/19 25 10/26/2024 colla borat ander care manag ement * (sac) do you feel comfortable leaving the person home alone? Yes Not Available Not Available 07/2024 10:40:09 10/27/19 25 10/26/2024 colla borat ander care manag ement * (sac) are there concerns about safety in the home? Yes Not Available Not Available 10/26/2024 10:40:10/27/19 25 10/26/2024 colla borat ander care manag ement * (sac) do you ever notice that there are too many or not enough pills at the end of the month? No Not Available Not Available 07/2024 10:40:10/27/19 25 10/26/2024 colla borat ander care manag ement * (sac) how confident are you that the patient IS taking them directed? Brunilda rodriguez confid ent Not Available Not Available 10:40:10/27/19 25 10/26/2024 colla borat ander care manag ement * (sac) how IS the patient doing with taking their medications prescribed? Always on time Not Available Not Available 10:40:10/27/19 25 10/26/2024 colla borat ander care manag ement * (sac) IS the patient taking medications prescribed? Yes Not Available Not Available 10/26/2024 10:40:10/27/19 25 10/26/2024 colla borat ander care manag ement * (sac) do you have any concerns about A passenger riding with the patient? Not applic able Not Available Not Available 10:40:09 10/27/19 25 10/26/2024 colla borat ander care manag ement * (sac) has the patient been involved in any recent accidents including fender benders, or been issued any tickets? Not applic able Not Available Not Available 10:40:10/27/19 25 10/26/2024 colla borat ander care manag ement * (sac) IS the patient A good electric train driver? Not applic able Not Available Not Available 10:40:09 10/27/19 25 10/26/2024 colla borat ander care manag ement * (sac) IS the patient still driving? No Not Available Not Available 07/2024 10:40:09 10/27/19 25 10/26/2024 colla borat ander care manag ement * (sac) are you confident that the patient IS able to shop, clean, and prepare meals? Not applic able Not Available Not Available 10:40:09 10/27/19 25 10/26/2024 colla borat ander care manag ement * (sac) are you confident that the patient IS managing finances? Yes Not Available Not Available 10:40:10/27/19 25 10/26/2024 colla borat ander care manag ement * (sac) are you confident that the patient IS getting to appointments ? Yes Not Available Not Available 07/2024 10:40:10/27/19 25 10/26/2024 colla borat ander care manag ement * (sac) are you confident that the patient IS eating regularly? Yes Not Available Not Available 0 10/26/2024 10:40:09 10/27/19 25 10/26/2024 colla borat ander care manag ement * (sac) do you have any concerns about the patient's ability to live alone? No Not Available Not Available 10/26/2024 10:40:09 10/27/19 25 10/26/2024 colla borat ander care manag ement * (sac) have you thought about when IT will no longer BE safe for the patient to live alone? Yes Not Available Not Available 10/26/2024 10:40:09 10/27/19 25 10/26/2024 colla borat ander care manag ement * (sac) does the patient live alone? Yes Not Available Not Available 10/26/2024 10:40:09 10/27/19 25 10/26/2024 colla borat ander care manag ement * caregiver profile (cp) Not Available Not Available 10/26/2024 10:38:29 10/27/19 25 10/26/2024 colla borat ander care manag ement * (cp) over the past two weeks, how often have you been bothered by feeling down, depressed, or hopeless? More than half the days Not Available Not Available 10:38:29 10/27/19 25 10/26/2024 colla borat ander care manag ement * (cp) over the past two weeks, how often have you been bothered by little interest or pleasure in doing things? Not at all Not Available Not Available 10:38:29 10/27/19 25 10/26/2024 colla borat ander care manag ement * (cp) stress IS feeling tense, nervous, anxious, restless, or unable to sleep because your mind IS troubled all the time. how stressed are you? Modera tely stress ed Not Available Not Available 10:38:29 10/27/19 25 10/26/2024 colla borat ander care manag ement * (cp) do you know where you can receive support A caregiver? No Not Available Not Available 0 10/26/2024 10:38:29 10/27/19 25 10/26/2024 colla borat ander care manag ement * (cp) are you able and willing to provide care and/or assistance? Yes Not Available Not Available 10/26/2024 10:38:29 10/27/19 25 10/26/2024 colla borat ander care manag ement * (cp) do you know where you can obtain additional information about the disease? No Not Available Not Available 07/2024 10:38:29 10/27/19 25 10/26/2024 colla borat ander care manag ement * (cp) do you understand alzheimer's disease and other dementias? Yes Not Available Not Available 0 10/26/2024 10:38:29 10/27/19 25 10/26/2024 colla borat ander care manag ement * (cp) what IS your relationship to the patient? Family or Friend Not Available Not Available 10:38:29 10/27/19 25 10/26/2024 colla borat ander care manag ement * (cp) how many days per week do you have contact with the patient? 5+ Not Available Not Available 10/26/2024 10:38:29 10/27/19 25 10/26/2024 colla borat ander care manag ement * (cp) do you live with the patient? No Not Available Not Available 10/26/2024 10:38:29 10/12/19 25 10/11/2024 in-ho tn non-s kille d healthcare sales representative * burden interview 50 0-88 Burde n: moder ate to sever e Not Available Not Available 10/11/2024 19:47:18 10/12/19 25 10/11/2024 in-ho tn non-s kille d healthcare sales representative * (burden interview) overall, how burdened do you feel in caring for your relative? Quite a bit Not Available Not Available 19:47:18 10/12/19 25 10/11/2024 in-ho me non-s kille d healthcare sales representative * (burden interview) do you feel you could do A better job in caring for your relative? Quite Freque ntly Not Available Not Available 19:47:18 10/12/19 25 10/11/2024 in-ho me non-s kille d healthcare sales representative * (burden interview) do you feel you should BE doing more for your relative? Someti mes Not Available Not Available 19:47:18 10/12/19 25 [facility] sales [facility] * (burden interview) do you feel uncertain about what to do about your relative? Quite Freque ntly Not Available Not Available 19:47:18 10/12/19 25 10/11/2024 [facility] healthcare sales representative * (burden interview) do you wish you could just leave the care of your relative to someone else? Rarely Not Available Not Available 09/25 19:47:18 10/12/19 25 10/11/2024 [facility] healthcare sales representative * (burden interview) do you feel that you have lost control of your life since your relative?S illness? Quite Freque ntly Not Available Not Available 19:47:18 10/12/19 25 10/11/2024 [facility] non[facility] healthcare sales representative * (burden interview) do you feel that you will BE unable to take care of your relative for much longer? Rarely Not Available Not Available 10/11/2024 19:47:18 10/12/19 25 10/11/2024 [facility] non[facility] healthcare sales representative * (burden interview) do you feel that you don't have enough money to care for your relative, in addition to the rest of your expenses? Rarely Not Available Not Available 19:47:18 10/12/19 25 10/11/2024 [facility] non[facility] healthcare sales representative * (burden interview) do you feel that your relative seems to expect you to take care of him/her, if you were the only one he/she could depend on? Quite Freque ntly Not Available Not Available 19:47:18 10/12/19 25 10/11/2024 [facility] non[facility] healthcare sales representative * (burden interview) do you feel uncomfortabl e about having friends over, because of your relative? Rarely Not Available Not Available 19:47:18 10/12/19 25 10/11/2024 [facility] non[facility] healthcare sales representative * (burden interview) do you feel that your social life has suffered because you are caring for your relative? Quite Freque ntly Not Available Not Available 19:47:18 10/12/19 25 10/11/2024 [facility] non[facility] healthcare sales representative * (burden interview) do you feel that you don?T have much privacy you would like because of your relative? Quite Freque ntly Not Available Not Available 19:47:18 10/12/19 25 10/11/2024 [facility] non[facility] healthcare sales representative * (burden interview) do you feel that your health has suffered because of your involvement with your relative? Someti mes Not Available Not Available 19:47:18 10/12/19 25 10/11/2024 [facility] non[facility] healthcare sales representative * (burden interview) do you feel strained when you are around your relative? Someti mes Not Available Not Available 19:47:18 10/12/19 25 10/11/2024 [facility] non[facility] healthcare sales representative * (burden interview) do you feel your relative IS dependent upon you? Nearly Always Not Available Not Available 19:47:18 10/12/19 25 10/11/2024 [facility] non[facility] healthcare sales representative * (burden interview) are you afraid what the future holds for your relative? Quite Freque ntly Not Available Not Available 19:47:18 10/12/19 25 10/11/2024 [facility] non[facility] healthcare sales representative * (burden interview) do you feel that your relative currently affects your relationship s with other family members or friends in A negative way? Someti mes Not Available Not Available 19:47:18 10/12/19 25 10/11/2024 [facility] non-s [facility] healthcare sales representative * (burden interview) do you feel angry when you are around the relative? Someti mes Not Available Not Available 19:47:18 10/12/19 25 10/11/2024 [facility] non[facility] healthcare sales representative * (burden interview) do you feel embarrassed over your relative?S behavior? Rarely Not Available Not Available 19:47:18 10/12/19 25 10/11/2024 [facility] non[facility] healthcare sales representative * (burden interview) do you feel stressed between caring for your relative and trying to meet other responsibili ties for your family or work? Quite Freque ntly Not Available Not Available 19:47:18 10/12/19 25 10/11/2024 [facility] non[facility] healthcare sales representative * (burden interview) do you feel that because of the time you spend with your relative that you don?T have enough time for yourself? Someti mes Not Available Not Available 19:47:18 10/12/19 25 10/11/2024 [facility] non[facility] healthcare sales representative * (burden interview) do you feel that your relative asks for more help than he/she needs? Someti mes Not Available Not Available 19:47:18 10/13/19 25 10/12/2024 PROMI S scale v1.2 - globa l healt h* 1. in general, would you say your health IS: 3 5 excell ent / 4 very good / 3 good / 2 fair / 1 poor Not Available [facility] [place] - Clinical Documents / Medical Records [address], [place], [address], 10/10/2024 22:24:57 10/13/19 25 10/12/2024 PROMI S scale v1.2 - globa l healt h* 2. in general, would you say your quality of life IS: 4 5 excell ent / 4 very good / 3 good / 2 fair / 1 poor Not Available [facility] [place] - Clinical Documents / Medical Records [address], [place], [address], 10/10/2024 22:24:57 10/13/19 25 10/12/2024 PROMI S scale v1.2 - globa l healt h* 3. in general, how would you rate your physical health? 3 5 excell ent / 4 very good / 3 good / 2 fair / 1 poor Not Available [facility] [place] - Clinical Documents / Medical Records [address] [facility] [address], [place], [address], 10/10/2024 22:24:57 10/13/19 25 10/12/2024 PROMI S scale v1.2 - globa l healt h* 4. in general, how would you rate your mental health, including your mood and your ability to think? 2 5 excell ent / 4 very good / 3 good / 2 fair / 1 poor Not Available [facility] [place] - Clinical Documents / Medical Records [address] [facility] [address], [place], [address], 10/10/2024 22:24:57 10/13/19 25 10/12/2024 PROMI S scale v1.2 - globa l healt h* 5. in general, how would you rate your satisfaction with your social activities and relationship s? 3 5 excell ent / 4 very good / 3 good / 2 fair / 1 poor Not Available [facility] [place] - Clinical Documents / Medical Records [address] [facility] [address], [place], [address], 10/10/2024 22:24:57 10/13/19 25 10/12/2024 PROMI S scale v1.2 - globa l healt h* 6. in general, please rate how well you carry out your usual social activities and roles. (this includes activities at home, at work and in your community, and responsibili ties A parent, child, spouse, employee, friend, etc.)? 2 5 excell ent / 4 very good / 3 good / 2 fair / 1 poor Not Available [facility] [place] - Clinical Documents / Medical Records [address] [facility] [address], [place], [address], 10/10/2024 22:24:57 10/13/19 25 10/12/2024 PROMI S scale v1.2 - globa l healt h* 7. to what extent are you able to carry out your everyday physical activities such walking, climbing stairs, carrying groceries, or moving A chair? 2 5 comple tely / 4 mostly / 3 modera tely / 2 A little / 1 not at all Not Available [facility] [place] - Clinical Documents / Medical Records [address] [facility] [address], [place], [address], 10/10/2024 22:24:57 10/13/19 25 10/12/2024 PROMI S scale v1.2 - globa l healt h* 8. how often have you been bothered by emotional problems such feeling anxious, depressed or irritable? 3 5 never / 4 rarely / 3 someti mes / 2 often / 1 always Not Available [facility] [place] - Clinical Documents / Medical Records [address] [facility] [address], [place], [address], 10/10/2024 22:24:57 10/13/19 25 10/12/2024 PROMI S scale v1.2 - globa l healt h* 9. how would you rate your fatigue on average? 3 5 none / 4 mild / 3 modera te / 2 severe / 1 very severe Not Available [facility] [place] Clinical Documents / Medical Records [address], [place], [address], 10/10/2024 22:24:57 10/13/1910/12/2024 PROMI S scale v1.2 - globa l healt h* 10. how would you rate your pain on average? 3 0 no pain / 1 / 2 / 3 / 4 / 5 / 6 / 7 / 8 / 9 / 10 worst pain imagin able Not Available [facility] [place] - Clinical Documents / Medical Records [address], [place], [address], 10/10/2024 22:24:57 10/13/19 25 10/12/2024 asses sment and care plann ing for patie nt with cogni tive impai rment * A. Ability to Use Telephone (1) Dials a few well-k nown number s Not Available [facility] Medical Records [address], [place], [address], 10/10/2024 22:24:57 10/13/19 25 10/12/2024 asses sment and care plann ing for patie nt with cogni tive impai rment * B. Shopping (0) Needs to be accomp anied on any shoppi ng trip Not Available [facility] Medical Records [address], [place], [address], 10/10/2024 22:24:57 10/13/19 25 10/12/2024 asses sment and care plann ing for patie nt with cogni tive impai rment * C. Food Preparation (0) Needs to have meals prepar ed and served Not Available [facility] Records [address], [place], [address], 10/10/2024 22:24:57 10/13/19 25 10/12/2024 asses sment and care plann ing for patie nt with cogni tive impai rment * D. Housekeeping (1) Perfor ms light daily tasks but cannot mainta in accept able level of cleanl iness Not Available [facility] Records [address], [place], [address], 10/10/2024 22:24:57 10/13/19 25 10/12/2024 asses sment and care plann ing for patie nt with cogni tive impai rment * E. Laundry (0) All laundr y must be done by others Not Available [facility] Records [address], [place], [address], 10/10/2024 22:24:57 10/13/19 25 10/12/2024 asses sment and care plann ing for patie nt with cogni tive impai rment * F. Mode of Transportati on (0) Travel limite d to taxi or automo bile with assist ance of anothe r Not Available [facility] [address], [place], [address], 10/10/2024 22:24:57 10/13/19 25 10/12/2024 asses sment and care plann ing for patie nt with cogni tive impai rment * G. Responsibili ty for Own Medications (0) Is not capabl e of dispen sing own medica tion Not Available [facility] Records [address], [place], [address], 10/10/2024 22:24:57 10/13/19 25 10/12/2024 asses sment and care plann ing for patie nt with cogni tive impai rment * H. Ability to Handle Finances (0) Incapa ble of handli ng money Not Available [facility] Records [address], [place], [address], 10/10/2024 22:24:57 10/13/19 25 10/12/2024 asses sment and care plann ing for patie nt with cogni tive impai rment * Total Score 2 Not Available [facility] Medical Records [address], [place], [address], 10/10/2024 22:24:57 10/14/19 25 10/13/2024 chron ic care manag ement and care plann ing* Have you had any recent ER visits since your last [facility] appointment? No Not Available [facility] Records [address], [place], [address], 10/10/2024 22:24:58 10/14/19 25 10/13/2024 chron ic care manag ement and care plann ing* Has there been a significant health event/change in baseline level of function? No Not Available [facility] Medical Records [address], [place], [address], 10/10/2024 22:24:58 10/14/19 25 10/13/2024 chron ic care manag ement and care plann ing* Has there been a change in caregiver status? No Not Available [facility] Records [address], [place], [address], 10/10/2024 22:24:58 10/14/19 25 10/13/2024 chron ic care manag ement and care plann ing* Any changes to pt medications, adverse side effects or trouble remembering to take any medications? No Not Available [facility] Records [address], [place], [address], 10/10/2024 22:24:58 10/14/19 25 10/13/2024 atten manuel physi carla attes tatio n/exa mined * Results from: Initia l assess ment Not Available [facility] Records [address], [place], [address], 10/10/2024 22:24:58 10/14/19 25 10/13/2024 atten ding physi carla attes tatio n/exa mined * If initial assessment, is the patient an existing patient of the practice or a new patient? New Not Available [facility] Records [address], [place], [address], 10/10/2024 22:24:58 10/14/19 25 10/13/2024 atten ding physi carla attes tatio n/exa mined * If initial assessment, provide patient referral source to [facility]: Referr ed by acrissa lora enmaraghu Not Available [facility] Records [address], [place], [address], 10/10/2024 22:24:58 10/14/19 25 10/13/2024 atten ding physi carla attes tatio n/exa mined * Patient is not a long-term retirement resident or enrolled in Hospice True Not Available [facility] Medical Records [address], [place], [address], 10/10/2024 22:24:58 10/14/19 25 10/13/2024 atten ding physi carla attes tatio n/exa mined * Clinical Attestation Yes, I receiv ed a albina head report of a docume nted wilfrido ia diagno sis Not Available [facility] Records [address], [place], [address], 10/10/2024 22:24:58 10/14/19 25 10/13/2024 healt h liter acy asses sment * Care Program Name GUIDE Not Available [facility] Records [address], [place], [address], 10/10/2024 22:24:57 10/14/19 25 10/13/2024 healt h liter acy asses sment * PT Consents to Care Program Enrollment Yes Not Available [facility] Records [address], [place], [address], 10/10/2024 22:24:57 10/14/19 25 10/13/2024 funct ional asses sment scree ingrid* (1) normal aging / no deflictis whatsoever 1 Not Available [facility] Records [address], [place], [address], 10/10/2024 22:24:57 10/14/19 25 10/13/2024 funct ional asses sment scree ingrid* (2) possible mild cognitive impairment / subjective functional deficit 2 Not Available [facility] Records [address], [place], [address], 10/10/2024 22:24:57 10/14/19 25 10/13/2024 funct ional asses sment scree ingrid* (3) mild cognitive impairment / objective functional deficit interferes with A person's most complex tasks 3 Not Available [facility] Medical Records [address], [place], [address], 10/10/2024 22:24:57 10/14/19 25 10/13/2024 funct ional asses sment scree ingrid* (4) mild dementia / iadls become affected, such bill paying, cooking, cleaning, traveling 4 4 Not Available [facility] Records [address], [place], [address], 10/10/2024 22:24:57 10/14/19 25 10/13/2024 funct ional asses sment scree ingrid* (5) moderate dementia needs help selecting proper attire 5 Not Available [facility] Medical Records [address], [place], [address], 10/10/2024 22:24:57 10/14/19 25 10/13/2024 funct ional asses sment scree ingrid* (6A) moderately severe dementia / needs help putting on clothes 6A Not Available [facility] / Medical Records [address], [place], [address], 10/10/2024 22:24:57 10/14/19 25 10/13/2024 funct ional asses sment scree ingrid* (6B) moderately severe dementia / needs help bathing 6B Not Available [facility] / Medical Records [address], [place], [address], 10/10/2024 22:24:57 10/14/19 25 10/13/2024 funct ional asses sment scree ingrid* (6C) moderately severe / dementia needs help toileting 6C Not Available [facility] / Medical Records [address], [place], [address], 10/10/2024 22:24:57 10/14/19 25 10/13/2024 funct ional asses sment scree ingrid* (6D) moderately severe dementia / urinary incontinence 6D Not Available [facility] / Medical Records [address], [place], [address], 10/10/2024 22:24:57 10/14/19 25 10/13/2024 funct ional asses sment scree ingrid* (6E) moderately severe dementia / fecal incontinence 6E Not Available [facility] / Medical Records [address], [place], [address], 10/10/2024 22:24:57 10/14/19 25 10/13/2024 funct ional asses sment scree ingrid* (7A) severe dementia / speaks 5-6 words during day 7A Not Available [facility] / Medical Records [address], [place], [address], 10/10/2024 22:24:57 10/14/19 25 10/13/2024 funct ional asses sment scree ingrid* (7B) severe dementia / speaks only 1 word clearly 7B Not Available [facility] / Medical Records [address], [place], [address], 10/10/2024 22:24:57 10/14/19 25 10/13/2024 funct ional asses sment scree ingrid* (7C) severe dementia / can no longer walk 7C Not Available [facility] Medical Records [address], [place], [address], 10/10/2024 22:24:57 10/14/19 25 10/13/2024 funct ional asses sment scree ingrid* (7D) severe dementia / can no longer sit up 7D Not Available [facility] / Medical Records [address], [place], [address], 10/10/2024 22:24:57 10/14/19 25 10/13/2024 funct ional asses sment scree ingrid* (7E) severe dementia / can no longer smile 7E Not Available [facility] Medical Records [address], [place], [address], 10/10/2024 22:24:57 10/14/19 25 10/13/2024 funct ional asses sment scree ingrid* (7F) severe dementia / can no longer hold up head 7F Not Available [facility] Documents / Medical Records [address], [place], [address], 10/10/2024 22:24:57 10/14/19 25 10/13/2024 funct ional asses sment scree ingrid* - Not Available [facility] Medical Records [address], [place], [address], 10/10/2024 22:24:57 10/14/19 25 10/13/2024 funct ional asselayne quintero* score 4 Not Available [facility] [place] [facility] Medical Records [address], [place], [address], 10/10/2024 22:24:57 10/14/19 25 10/13/2024 colla teral inter view* Do you have a Medical power of Counselling Psychologist? Yes Not Available [facility] [address], [place], [address], 10/10/2024 22:24:56 10/14/19 25 10/13/2024 colla teral inter view* Do you have a Durable power of state's attorney (financial)? Unknow n Not Available [facility] [place] [facility] [place] / Medical Records [address], [place], [address], 10/10/2024 22:24:56 10/14/19 25 10/13/2024 colla teral inter view* Do you have a POLST, living will, or similar document? Yes Not Available [facility] [place] / Medical Records [address], [place], [address], 10/10/2024 22:24:56 10/14/19 25 10/13/2024 colla teral inter view* Would you be interested in exploring this further in a future visit? Yes Not Available [facility] Records [address], [place], [address], 10/10/2024 22:24:56 10/14/19 25 10/13/2024 colla teral inter view* What brings you rosy or purpose? 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 Enjoys her grandk ids, doing things with them and daught er and family . Apprec iates all that her family does for her. Enjoys her hinduism and Friday school . Loves visito rs. Not Available [facility] - Clinical Documents / Medical Records [address], [place], [address], 10/10/2024 22:24:56 10/14/19 25 10/13/2024 colla teral inter view* What challenges do you face in day-to-day life (daily struggles related to their condition)? No signif icayolanda wall per the pt: once in a while, hard to rememb er the day; her grandd harsh sr has given her a smart watch to help with this. Family is concer fahad about fall risk and agitat ion. Not Available [facility] - Clinical Documents / Medical Records [address], [place], [address], 10/10/2024 22:24:56 10/14/19 25 10/13/2024 colla teral inter view* What matters most to you and your family? family and conver sation with new friend snubia safe Not Available [facility] - Clinical Documents / Medical Records [address], [place], [address], 10/10/2024 22:24:56 10/15/19 25 10/14/2024 medic ation discr epanc y tool* Was medication reconciliati on and review completed using BEERS Criteria? Yes Not Available [facility] - Clinical Documents / Medical Records [address], [place], [address], 10/10/2024 22:24:58 10/15/19 25 10/14/2024 medic ation discr epanc y tool* If meds were reviewed with BEERS criteria, were high-risk meds or interactions identified? Yes Not Available [facility] [place] [facility] [place] / Medical Records [address], [place], [address], 10/10/2024 22:24:58 10/15/19 25 10/14/2024 medic ation discr epanc y tool* Were any changes recommended for medications including prescribing or de-prescribi ng? Yes Not Available [facility] / Medical Records [address], [place], [address], 10/10/2024 22:24:58 10/15/19 25 10/14/2024 medic ation discr epanc y tool* Is the patient currently taking medications appropriatel y as prescribed? Yes Not Available [facility] Records [address], [place], [address], 10/10/2024 22:24:58 10/27/19 25 10/26/2024 careg iver profi le* I know where to get the services I need. Strong ly agree (5) Not Available [facility] Clinical [facility] / Medical Records [address], [place], [address], 10/26/2024 10:43:01 10/27/19 25 10/26/2024 careg iver profi le* I have people I can turn to when I need help with my problems and stress. Agree (4) Not Available [facility] Clinical [facility] / Medical Records [address], [place], [address], 10/26/2024 10:43:01 10/27/19 25 10/26/2024 careg iver profi le* I feel confident that I can manage future caregiver challenges. Neutra l (3) Not Available [facility] Clinical [facility] / Medical Records [address], [place], [address], 10/26/2024 10:43:01 10/27/19 25 10/26/2024 careg megan rubio le* I feel confident that I can manage (name of the person with dementia) s changes in behavior. Neutra l (3) Not Available [facility] Clinical Documents / Medical Records [address], [place], [address], 10/26/2024 10:43:01 10/27/19 25 10/26/2024 careg megan rubio le* Total Score 15 Not Available [facility] Clinical Documents / Medical Records [address], [place], [address], 10/26/2024 10:43:01 10/27/19 25 10/26/2024 chron ic care manag ement and care plann ing* Have you had any recent ER visits since your last [facility] appointment? No Not Available [facility] Medical Records [address], [place], [address], 10/26/2024 10:41:48 10/27/19 25 10/26/2024 chron ic care manag ement and care plann ing* If yes, please describe the ER visit: NA Not Available [facility] / Medical Records [address], [place], [address], 10/26/2024 10:41:48 10/27/19 25 10/26/2024 chron ic care manag ement and care plann ing* Has there been a significant health event/change in baseline level of function? Yes Not Available [facility] Clinical [facility] / Medical Records [address], [place], [address], 10/26/2024 10:41:48 10/27/19 25 10/26/2024 chron ic care manag ement and care plann ing* If yes, please describe the health event/change in baseline level of function: Fractu red ribs due to 2 falls in the last 2 weeks Not Available [facility] / Medical Records [address], [place], [address], 10/26/2024 10:41:48 10/27/19 25 10/26/2024 chron ic care manag ement and care plann ing* Has there been a change in caregiver status? No Not Available [facility] Clinical [facility] / Medical Records [address], [place], [address], 10/26/2024 10:41:48 10/27/19 25 10/26/2024 chron ic care manag ement and care plann ing* If yes, please describe the change in caregiver status: NA Not Available [facility] / Medical Records [address], [place], [address], 10/26/2024 10:41:48 10/27/19 25 10/26/2024 chron ic care manag ement and care plann ing* Any changes to pt medications, adverse side effects or trouble remembering to take any medications? No Not Available [facility] Clinical [facility] / Medical Records [address], [place], [address], 10/26/2024 10:41:48 10/27/19 25 10/26/2024 chron ic care manag ement and care plann ing* If yes, please describe the change(s): NA Not Available [facility] Medical Records [address], [place], [address], 10/26/2024 10:41:48 Result Notes None recorded. Problems Name Problem SNOMED Code Status Onset Date Resolution Date Notes Provider Name and Address Organization Details Recorded Time Memory impairment 504812641 Active 025 Madhavi Hernandez [address], [place], [address] [place] [address] - [facility] 16:07:05 Vascular dementia 320351466 Active 025 Isabelle Joseph MD [address], [facility] [address], [facility] 22:46:34 Problem Notes None recorded. Procedures Surgical History Date Name Laterality Status Provider Name and Address Organization Details Recorded Time repair of retina for retinal detachment completed Isabelle Joseph MD [address], [place] [address], 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 10/10/2024 22:49:09 procedure on femur completed Isabelle Joseph MD [address] [address], [facility] 10/10/2024 22:49:28 Imaging Results None recorded. Procedure Notes None recorded. Medical Equipment None Reported. Allergies Allergen ID Allergen Name Allergen Category Reaction Reaction Severity Criticality Documentation Date Start Date Code Code System Note Provider Name and Address Organization Details Recorded Time 2856 Product containin g penicilli n (product) medicatio n hives Not available Not available 10/10/2024 [id number] SNOMED Isabelle Joseph MD [address] [address], [facility] 22:48:30 Medications Name Sig Start Date Stop Date Status Note LastModified by Organization Details LastModified Time buspirone 5 mg tablet 10/12 completed Not Available Not Available Not Available lamotrigine 150 mg tablet 10/12 completed Not Available Not Available Not Available lamotrigine 200 mg tablet Take 1 tablet twice a day by oral route for 29 days. active Not Available Not Available No t Available pravastatin 40 mg tablet 10/12 completed Not Available Not Available Not Available ofloxacin 0.3 % eye drops 10/12 completed Not Available Not Available Not Available azathioprin e 50 mg tablet 10/12 completed Not Available Not Available Not Available amlodipine 5 mg tablet Take 1.5 tablets every day by oral route for 29 days. active Not Available Not Available No t Available aspirin 81 mg tablet,tyler yed release Take 1 tablet every day by oral route. active Not Available Not Available No t Available lamotrigine 25 mg tablet 10/12 completed Not Available Not Available Not Available ketorolac 0.5 % eye drops 10/12 completed Not Available Not Available Not Available pravastatin 80 mg tablet Take 1 tablet every day by oral route for 29 days. active Not Available Not Available No t Available prednisolon e acetate 1 % eye drops,suspe nsion 10/12 completed Not Available Not Available Not Available OneTouch Ultra Test strips USE TO CHECK BLOOD SUGAR ONCE DAILY active Not Available Not Available No t Available cephalexin 500 mg capsule 10/12 completed Not Available Not Available Not Available pantoprazol e 40 mg tablet,tyler yed release Take 1 tablet every day by oral route for 29 days. active Not Available Not Available No t Available ferrous sulfate 325 mg (65 mg iron) tablet Take 1 tablet every day by oral route. active Not Available Not Available No t Available metoprolol tartrate 50 mg tablet 10/12 completed Not Available Not Available Not Available losartan 100 mg tablet Take 1 tablet every day by oral route for 29 days. active Not Available Not Available No t Available lamotrigine 100 mg tablet 10/12 completed Not Available Not Available Not Available metformin ER 750 mg tablet,exte nded release 24 hr Take 1 tablet every day by oral route for 29 days. active Not Available Not Available No t Available mirtazapine 7.5 mg tablet 10/12 completed Not Available Not Available Not Available calcium 315 mg (as citrate)-vi tamin D3 5 mcg (200 unit) tablet Take 1 tablet every day by oral route. active Not Available Not Available No t Available multivitami n active Not Available Not Available Not Available rivastigmin e 4.6 mg/24 hour transdermal patch Apply 1 patch every day by transderm . route for 30 days. active Not Available Not Available No t Available melatonin 5 mg tablet Take 1 tablet every day by oral route at bedtime. active Not Available Not Available No t Available mesalamine ER 0.375 gram capsule,ext ended release 24 hr Take 2 capsules twice a day by oral route for 29 days. active Not Available Not Available No t Available lacosamide 50 mg tablet 10/12 completed Not Available Not Available Not Available lacosamide 100 mg tablet 10/12 completed Not Available Not Available Not Available Entyvio 300 mg intravenous solution Inject 300 g every 2 months by intraveno us route. active Not Available Not Available No t Available Briviact 50 mg tablet Take 1 tablet twice a day by oral route for 30 days. active Not Available Not Available No t Available OneTouch Delica Plus Lancet 33 gauge USE TO CHECK BLOOD GLUCOSE ONCE DAILY active Not Available Not Available No t Available Vitals None Recorded Social History Question Answer Notes LastModified by Organizat ion Details LastModified Time Tobacco Smoking Status Never Smoker Isabelle Joseph MD [address], [address], [facility] 10/10/2024 22:50:57 What Is The Highest Grade Or Level Of School You Have Completed Or The Highest Degree You Have Received? [id number] Investigative Analyst Information not available 10/26/2024 Have There Been Any Changes To Your Family Or Social Situation? No Information not available 10/26/2024 Where Do You Live? Apartment [place] Information not available 10/22/2024 Do You Manage Your Own Medications No Information not available 10/22/2024 How Do You Organize Your Medications [facility] Administers Information not available 10/22/2024 Do You Have A Physician Orders For Life Sustaining Treatment (POLST)? Yes Information not available 10/26/2024 Do You Have An Assigned Guardian? No Information not available 10/22/2024 Do You Have An Unpaid/informal Caregiver? Yes Information not available 10/22/2024 Does The Patient Have Any Psychosocial Support In Place? Such As Family, Friends, Home Health, Neighbors, Other Connections, Or Spiritual Beliefs? Yes Family Support System; [facility] [email or web address] Information not available 10/22/2024 Do You Have A Paid/formal Caregiver? Yes Information not available 10/22/2024 Are There Any Open Or Active APS Or Legal Cases? No Information not available 10/22/2024 Does The Patient Or Caregiver Express Any Concerns About Falls Or Fall Risks? Yes Information not available 10/22/2024 Has The Patient Had Any Recent Falls? Yes Information not available 10/22/2024 Has The Patient Ever Gotten Lost Or Disoriented? No Information not available 10/22/2024 Has The Patient Had Any Accidents Or Close Calls At Home? No Information not available 10/22/2024 Does The Patient Receive VA Benefits? No Information not available 10/22/2024 How Often Do You Feel Lonely Or Isolated From Those Around You? Never Information not available 10/22/2024 How Long Have You Lived There? Since June 2023 Information not available 10/26/2024 Do You Have Any Pets? No Information not available 10/26/2024 What Is Your Relationship Status? Information not available 10/26/2024 Are There Any Smokers In Your House? No Information not available 10/22/2024 Sex: Female Functional Status Question Answer Note LastModified by Organizat ion Details LastModified Time Do you use any illicit or recreational drugs? No Information not available 10/22/2024 What is your level of alcohol consumption? None Information not available 10/10/2024 Mental Status None recorded. Family History Relationship Description Onset Age of this Age Resolved Age Notes LastModified by Organization Details LastModified Time Mother Atrial fibrillation Not available 22:49:55 Mother Malignant tumor of breast Not available 2024 22:50:05 Mother Cerebrovascu lar accident Not available 22:50:12 Father Alzheimer's disease Not available 2024 22:50:24 Father Malignant neoplastic disease Not available 2024 22:50:30 Medical History No medical history recorded. Gynecological HistoryNo gynecological history recorded. Obstetrics History GPAL:G 0 P 0 0 0 0 Past Encounters Encounter ID Performer Location Encounter Start Date Encounter Closed Date Diagnosis/Indication Diagnosis SNOMED-CT Code Diagnosis ICD10 Code Diagnosis Note [id number] Isabelle Joseph MD [facility] [place] [address] [place] [address] 10/12/2024 09:30:14 10/14/2024 16:13:18 Vascular dementia [id number] F01.50 79 yo female with mild vascular dementia, seizures, anxiety, htn, dm2, san-ulcera tive colitis, renal disease, bradycardi a, syncope who is here with her daughter/M JOSLYN Badillo and granddaugh ter/MPOA Gerald to establish care and GUIDE attestatio n.FAST 4 mild dementiaKa tz 4 moderately independen t (incontine nce and needs help bathing)LB 2 very dependent (needs help with shopping food prep, laundry, transporta tion ,medicatio ns, finances)B EHAV5+ 3 Agitation, irritabili ty, sleep. No hallucinat ions, paranoia, social withdrawal .ZBI-22 50 moderate to severe CG burdenPROM IS10 doneGAD2 5 some concerns for anxiety at this timePHQ2/9 1 no active concerns for depression at this time Recommenda tions:1) Aby and Gerald, you are doing a wonderful job at being proactive in supporting your mother/gra ndmother! We at [facility] look forward to being part of her clinical team! Let us work on continuing to have her be physically , socially and cognitivel y engaged! In addition, cognitive stimulatio n therapy may be an option to explore in the future.2) You will be connecting with your Foot Setter, Svetlana Araiza , on 10/26 at 8:30 am3) Keep up the great work on a sleep schedule/r outine to help with the sleep issues4) Continue to explore memory aids to help decrease her frustratio n. Consider a behavior log to see if there are additional triggers for the agitation. 5) It would be helpful to further explore her mood, especially the anxiety and to see what non-pharma cological options would help.6) Discuss with your PCP if it would be reasonable to consider less intensive diabetes control in the future.7) I would encourage you to sign up to the electronic medical record portal and you can reach out to my biomedical engineer Madhavi for assistance with this. I will look forward to following up with you all in 4 months. Medication review done by doctor [id number] Z76.89 A thorough medication reconcilia tion and review was performed during the encounter, and the following high-risk medication s or interactio ns were identified :1) Monitor renal function for nephrotoxi city, due to use of losartan with mesalamine , and aspirin.2) Monitor for metabolic acidosis, given use of lamotrigin e with metformin. 3) Monitor for bradycardi a, given use of lamotrigin e with rivastigmi ne. 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 [id number] Svetlana Jose [facility] [place] [address] [place] [address] 10/26/2024 09:20:51 10/26/2024 10:49:42 Health Concerns Section Related Observation LastModified by Organization Detai ls LastModified Time None Recorded Concern Status LastModified by Organization Details LastModified Time None Recorded Advance Directives Directive None Recorded Payers Insurance Date Sequence Insurance Name Policy Number Policy Philip Covered Member ID Philip Member ID Guarantor Name 12/27/2024 1 [place] Lisa Spencern [id number] Lisa Allen 01/03/2025 2 [place] [id number] Lisa Spencren [id number] Lisa Allen 01/03/2025 [place] Lisa Komal Spencern [id number] Lisa Alejandro Notes Date Note Type Note Provider Name and Address Organization Details Recorded Time 5 text/html HIPAA-compliant interactive video-audio telecommunications used while the patient and the rendering provider were not in the same physical location. Consent provided by patient/POA at start of encounter for video-audio telecommunication visit and participation in the [facility]. Emergency Location / PT Contact InformationPatients [facility] [address] [place] [address] Dr. Fidencio PoeL[place]SA[place] VILLE [id number] Patients Emergency Contact/Caregiver Phone number:tel:[phone] Participation:Caregiver/i ndependent historian was present and involved in the encounter.pt's MPOA/daughter Aby Riley, and pt's granddaughter Gerald Medical Decision MakingThe person who currently makes medical decisions for the patient is POA.MPOA (signed 02/22/14) Aby Riley >> Dia Gupta Portilloruth annPer document, POA shall become effective on the date of executionLiving will in place, organ donor Decision Making Capacity: Uncertain/needs more evaluation If the patient is not able to make their own decisions, who will be making decisions in the event that the patient cannot? MPOA Consent for this visit was obtained in writing prior to the visitMedical Team Members:As noted in the PT Care Team PCP: Servando Torre MDNeurologist Dr. Nicolas; Chelsie Francisco NP, last seen - 07/08/24 HPI:79 yo female with mild vascular dementia, seizures, anxiety, htn, dm2, san-ulcerative colitis, renal disease, bradycardia, syncope who is here with her daughter/ETHAN Badillo and granddaughter/ETHAN Duarte to establish care and GUIDE attestation. Per Neurologist Dr. Nicolas's 04/2024 note: Since our last assessment, Ms. Allen's memory [...] and understanding more complex issue. She is appropriate in social situations. She is as active as ever in the community. She is no longer driving, due to issues with memory and thinking. At home, she is able to manage simple chores (e.g., washing the dishes, making her bed, and light cleaning). She is able to operate household appliances including the lobster man, laundry machines, and card maker. She has difficulty using technology, including the television remote, cell phone, and computer. She is fully capable of self care. Per daughter, dx of seizures 2022 and already having memory issues at that time, since then that seems to have sped everything up, daughter had already been helping pt with her finances at that time; 08/11/24 grand lilly. Currently under the care of a subspecialty neurologist and has been on Briviact (brivaracetam) since the end of July. Family members have noted changes in her behavior, including increased anger and repetitiveness. Noted side effects include increased anger and repetitiveness. They have discussed these behavioral side effects with neurologist. Pt lives in an [facility] in [place], [place] since 06/2023. Patient loves it there. Prior to hospitalization pt was moderately independent with activities of daily living and care. Patient has adequate support which includes assistance from facility staff with meds, bathing, meal prep. No home health or sanitation worker cleaning machinery services. Has a wheeled walker as her only DME. Limited insight into her dementia. Knows that she sometimes forgets names. Unaware of the specific dx and what medication she is on for this. Family is interesting in coordination of care, approaches to her agitation/aggression. Realize that there are somethings that they can not change. Aby and her 2 daughters are actively involved in the patient care including taking care of appointments, following closely with the assisted living staff. The AL facility is great but understaffed with some holes in care. The staff is helping with meals, meds, showers. Pt is a top-notch pill taker so this has not been an issue. Concerns about unsteadiness/balance. Gerald has helped to put safety protocols in place, reinforcing consistent routines, however the pt is not always compliant sveta since 02/2024 after her breakthrough seizures. They would like for her to consistently use her walker but feel that this is often a prakash and they wonder about her self-preservation. Family now stays overnight with the pt, making sure that she does not fall. Even with them staying with her at night, she has had 1 fall. They also have cameras in her apt to watch for any falls. Currently has OT and PT at the facility and speech is to start. DM2 A1c 6.6, glu 110-130s. Currently on metformin XR 750 and doing well on this, no gi upset now that she is on the XR formulation. Taken off of metoprolol due to bradycardia down to HR 40s and they have had to increase up the amlodipine to help with the BP. BP is still a little high. No ankle edema noted. 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 NoIf yes, what is most concerning for the patient and family today?PES info - Nothing specific mentioned. pt resides at assisted living facility and daughter is open to any support/resources we can provide to her Dementia care and neurologist and aggression What Matters MostWhat brings you rosy or purpose?sang for years in [employer], currently sings with choir in hinduism and the [employer] group, every Friday. Enjoys her grandkids, doing things with them and daughter and family. Appreciates all that her family does for her. Enjoys her hinduism and Friday school. Loves visitors.What challenges do you face in day-to-day life (daily struggles related to their condition)?No significant challenges per the pt: once in a while, hard to remember the day; her granddaughter has given her a smart watch to help with this. Family is concerned about fall risk and agitation.What matters most to you and your family? family and conversation with new friends, staying safePt related primary concerns: no specific concerns; help in remembering thingsCG concerns: agitation which is associated with when she forgets things; repetitive behaviors if she has too much on her mind, some anxiety sveta around bedtime which results in difficulty with sleep. She wants to go to sleep but feels that she is missing something. They are working on a sleep schedule to assist. High CG burden. They still have the patient's home of 50 years and are needing to make decisions about it. It was a difficult decision for them to transition the pt to assisted living and there are a lot of emotions still surrounding this decision.Patient's strengths and goals: Able to express her needs and is accepting of help. Spiritual orientation. Appreciates her family and assistance from others. Closely connected with her family. No specific goals. She is not enjoying getting older.CG strengths: Very involved. Both pt's daughter and granddaughters are very dedicated to the patient and focused on assisting her with her care. Accepting of assistance and direction. Your support system:How do you spend a typical day (daily routines, activities)? active at AL, needs a little encouragement to participate. Daughter says she is a news junkie and likes [employer] and [employer]. Always prepared for the weather and asking about the temperature.How do you interact with family, friends, and community? see above Dementia HistoryDementia diagnosis: Vascular DementiaStage: Mild-ModerateWhen were you diagnosed? IOV with Dr. Nicolas 04/09/2023ge of onset: peed of Onset: GradualSpeed of Development: Slow and ProgressiveWhat diagnostic testing was completed and details (select all that apply)? see belowIOV with Dr. Nicolas 04/09/2023 with a 2 year history of memory and thinking difficulties. The first problems noted were asking odd questions, which happens when she gets more tired, and sleepy. She has difficulty managing medications. She will [...] can be part of sun downing, but also endorses worsened agitations and increased sleepiness since the initiation of keppra/levetiracetam, which can impact the cognition at this time.MMSE: 28, CDR: 0.5, SB: 3.5 Brain MRI from June of 2023 showed generalized atrophy and moderate to severe small-vessel disease. 07/2024 OSH MRI showed L splenium of CC chronic hemorrhage/encephalomalac ia/gliosis and scattered microhemorrhages and generalized atrophy. Dementia Medical History Screener:Disorders that can predispose patients to memory loss:HypertensionYesHyper cholesterolemia YesCoronary Artery Disease NoCardiac arrhythmias NoSleep Apnea No History of:A significant brain infection, such as meningitis or encephalitis: Farhad significant head injury in which the patient lost consciousness: NoRepetitive mild head injuries from football, other sports, or other causes: Yes from falls, no bleeds.A stroke or a transient ischemic attack: Farhad seizure: YesChronic pain: No Details: Any new/recent loss of function: NoHearing/vision concerns: YesL deafness, B hearing aids in place; auditory sensitivity as well. R eye blindness, hx of retinal surgery and now L eye cataract with plan to have surgery in 10/2024.Do you use assistive devices (cane, walker, etc.)? YesDurable Medical Equipment: Walker (wheeled)Concerns regarding gait/balance/falls: YesPt is unsteady and not consistent in using her walker. L eye blind with detached retina, L ear hearing loss, L hip replacement- If yes, when:Safety concerns: PhysicalPsychiatric history:History of anxiety and/or depression? YesHx of counseling: [facility]izations: NoMedication Review/Compliance-Who manages your medications: Assisted living staff-How often do you miss a dose of medication:Never-How do you organize your medications: Pill bottle-Have you taken any medications in the past for your dementia or mood that you had to stop due to side effects: Yes Rivastigmine initially stopped due to concerns of lowering seizure threshold but restarted at 4.6 mg TD patch as of 07/12/24 under consultation of [facility] Ms. Francisco and Dr. Jean and Dr. Anthony in Epilepsy. A thorough medication reconciliation and review was performed during the encounter, and the following high-risk medications or interactions were identified:1) Monitor renal function for nephrotoxicity, due to use of losartan with mesalamine, and aspirin.2) Monitor for metabolic acidosis, given use of lamotrigine with metformin.3) Monitor for bradycardia, given use of lamotrigine with rivastigmine. 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 The [facility] care team will collaborate with the primary care provider to monitor the patients progress, and continue revising the care plan as needed to ensure optimal outcomes. Isabelle Joseph MD [address], [place], [address], [facility] 10/14/2024 16:18:01 5 text/html Reason for Visit:Initial/GUIDE Mode of Encounter:Telehealth Expectation Setting:Care NavigatorIntroduced self and explained role as Care NavigatorShared how provider s care plan guides the workProvided [facility] contact informationProvided standard clinic and after-hours supportShared program benefits with patient/dyadExplained the shayne for ongoing support Emergency Location/PT Contact InformationPhysical location of patient:[address], [place], [place] [address]Pilmvvs contact information: JOSLYN [email or web address] (same as [email or web address]) Participation:Primary Caregiver present?YesName of individual:Aby Riley, daughterCaregiver contact information, if applicable: JOSLYN [email or web address] [email or web address] tional people present:Granddaughter Gerald Medical Team MembersCare Navigator:Svetlana AraizaMD:Isabelle SamuelW:Blanca WebsterPCP:Servando CokerNeuro:Chelsie Francisco, [facility] memory , Dr. Fidencio SANCHEZ, Psych memoryNeuro for seizures:Dr. Anthony Areas of Need/Visit notes:- Lisa is an 79 yo female with mild vascular dementia. She is living at [facility] in [place]. She needs help with meals, meds, and showers, and she is capable of self care. Daughter and 2 granddaughters rotate staying overnight to provide evening shower, getting into bed, and morning care. There are also cameras in apt for falls.- She is somewhat active with activities/socialization within [facility] community; data sciences director helps with encouraging/escorting.- She uses a walker but is unsteady and has tendency to fall often.- Lisa exhibits some challenging behaviors, such as agitation and occasional aggressive behavior toward family (scratching, squeezing).- Family is currently looking into [employer] and similar services to find independent caregivers to provide as-needed overnight respite care. They expressed interest in receiving assistance finding other options for respite agencies, as well as resources to help with managing behaviors. Foot Setter administered/reviewed the following screeners:Caregiver Self-EfficacyHRSNCaregive r ProfileSafety AssessmentIdentified Social Determinants & Safety Needs Community-Based Services and SupportsCare Navigator documented any community based resources, support, or services the patient/dyad is already receiving including VA benefits, dual-eligibility, etcOrganizations:[facility]/home healthA [facility] at Home for occasional respite assistance Svetlana Araiza [address], [place], [address], [facility] 10/26/2024 10:49:34 OBGyn Episode No OBEpisode recorded.
--- OUTSIDE RECORDS SUMMARY | 2025-01-06 19:06 | XMS_ITS | Referral Summary ---
Author Organization [facility] Address [address] [place] [address] Care Team Providers Care Color Matcher Name Role Phone Servando Torre MD Primary Care Provider [phone] Mariela Denton MD Unavailable [phone] Lexis Barroso OD Unavailable [phone] Adria Burleson MD Unavailable Aldo Castro MD Unavailable [phone] Josué Cook MD Unavailable [phone] Kimberly Nicolas MD Unavailable [phone] Encounters Date Type Department Care Team Description 12/21/2024 9:15 AM CDT Office Visit [facility] Primary Care at [address] [phone] Servando Torre MD Hypertension associated with diabetes (HCC) (Primary Dx); Mixed diabetic hyperlipidemia associated with type 2 diabetes mellitus (HCC); Screening for osteoporosis; Osteopenia of both hips; Seizure (HCC) 12/11/2024 Results Follow-Up [facility] Gastroenterology [address] [facility] 12th [place] [address] [place] [address] Josué Cook MD Surgical pathology 12/07/2024 12:30 PM CDT - 12/07/2024 1:00 PM CDT Surgery [facility] [place] [address] [facility] [address] [place] [address] Josué Cook MD COLON REMOVAL SNARE 12/07/2024 1:01 PM CDT Anesthesia Event [facility] [address] [facility] [address] [place] [address] Luis George MD 12/07/2024 11:14 AM CDT - 12/07/2024 2:22 PM CDT Hospital Encounter [facility] Dig[facility]ive Disease [address] [place] [address] Josué Cook MD Chronic ulcerative colitis, unspecified complication (HCC); Colon cancer screening Discharge Disposition: Discharge to home or self care 12/02/2024 Telephone [facility] [address] [place] [phone] Marie Laureano RN GI PROCEDURE 3 DAY PRE CALL 11/30/2024 Telephone [facility] [address] [place] [phone] Marie Laureano RN GI PROCEDURE 7 DAY PRE CALL 11/30/2024 2:45 PM CDT Office Visit [facility] [address] [place], [place] [phone] Riri Gonzalez PA Primary osteoarthritis of both knees (Primary Dx) 11/10/2024 12:30 PM CDT Office Visit [facility] Epilepsy [facility] 6th [place] [address] [place] [address] Adria Burleson MD Seizure (HCC) (Primary Dx) 11/01/2024 3:00 PM CDT Office Visit [facility] Primary Care at [place] [phone] Servando Torre MD Preoperative evaluation to rule out surgical contraindication (Primary Dx) 10/21/2024 Results Follow-Up [facility] Care at [address] [phone] Tammy Meehan, CONSTANZA XR Hip Right W Pelvis 2 or 3 Views 10/21/2024 3:00 PM CDT Ancillary Procedure [facility] Imaging at [address] [phone] Right hip pain 10/21/2024 2:30 PM CDT Office Visit [facility] at [address] [phone] Tammy Meehan NP Right hip pain (Primary Dx); Fall, initial encounter 10/18/2024 Results Follow-Up [facility] Primary Care at [address] [phone] Marixa San NP XR Ribs Left W PA Chest 3 or More Views 10/15/2024 Telephone [facility] Primary Care at [address] [phone] Servando Torre MD x Ray 10/13/2024 Telephone [facility] Primary Care at [address] [phone] Servando Torre MD Billing Question 10/12/2024 11:30 AM CDT Ancillary Procedure [facility] Imaging at [address] [phone] Fall, initial encounter 10/11/2024 Telephone [facility] Primary Care at [address] [phone] Servando Torre MD Needing a pre op appointment 10/08/2024 Telephone [facility] Primary Care at [address] [phone] Servando Torre MD Medical Question/Miscellaneous from Last 3 Months Allergies Active Allergy [...] daily To check blood glucose 50 each 023 Active OneTouch Delica Plus Lancet 33 gauge miscIndications:P rediabetes 1 each by other route daily To check glucose with glucose monitor and strip 100 each 023 Active amLODIPine (NORVASC) 5 mg tablet [...] [facility] ([facility] order in [facility] under 'Procedures' tab). 1 each 023 Active metFORMIN XR (GLUCOPHAGE XR) 750 [...] tablet (100 mg total) by mouth nightly [address] (PROTONIX) 40 mg EC tabletIndications :Gastroesophageal reflux disease without esophagitis Take 1 tablet (40 mg total) by mouth nightly 024 Active lamoTRIgine (LaMICtal) 200 mg tablet Take [...] eorder) ofloxacin (OCUFLOX) 0.3 % ophthalmic solution 2024 Discontinued prednisoLONE acetate (PRED FORTE) 1 % ophthalmic suspension 2024 Discontinued ketorolac (ACULAR) 0.5 % ophthalmic solution 2024 Discontinued Active Problems Problem Noted Date [...] epilepticus 03/17/2023 At risk for falls 03/13/2023 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 Radha Sauceda Allen is not up to date on [...] months Assessment & Plan (06/26/2023 2:02 PM STRATEGIC PLANNING ANALYST): A(n) yearly Medicare Annual Wellness Visit has [...] months Assessment & Plan (06/23/2022 3:06 PM STRATEGIC PLANNING ANALYST): A(n) initial Medicare Annual Wellness Visit has [...] (06/19/2022): Added automatically from request for surgery [id number] Ear ringing 03/03/2013 Asymmetrical sensorineural hearing loss 03/03/20 13 Stress fracture 07/07/2012 Arthralgia of hip 02/06/2011 Resolved Problems Problem Noted Date Diagnosed Date Resolved Date Hospital discharge follow-up 06/11/2023 08/07/2023 Assessment & Plan (06/11/2023 1:42 PM STRATEGIC PLANNING ANALYST): I have reviewed the hospital record, medications, and relevant testing from Radha K Allen's recent admission. Complications and discharge plan [...] file Legal Sex Female 9:30 AM STRATEGIC PLANNING ANALYST Gender Identity Female 04/05/2022 6:17 [...] 12/21/2024 9:20 AM CDT Plan of Treatment Not on file Procedures Procedure Name Priority Date/Time Associated Diagnosis Comments DIABETES EYE EXAM Routine 12/22/2024 8:42 AM [...] GLUCOSE DEVICE Routine 12/07/2024 12:53 PM CDT [place] ARTHROCENTESIS ASPIR&/INJ MAJOR JT/BURSA W/O US Routine [...] CREATININE RATIO, URINE Routine 09/21/2024 10:05 AM STRATEGIC PLANNING ANALYST Hypertension associated with diabetes (HCC) EGFR Routine 07/02/2024 10:20 AM STRATEGIC PLANNING ANALYST Weakness generalized LIPID PANEL Routine 07/02/2024 10:20 AM STRATEGIC PLANNING ANALYST Hypertension associated with diabetes (HCC) DEXA AXIAL SKELETON BONE DENSITY 1 OR MORE SITES Schedule Routine, Read Routine (OP Routine) 12/12/2022 2:33 PM CDT Screening for osteoporosis Asymptomatic menopausal state from Last 3 Months or Most Recently Relevant to Health Maintenance Results * DIABETES EYE EXAM (12/22/2024 8:42 AM CDT) SCRIBED HM DIABETIC DILATED EYE EXAM Normal Lexis Meier OD HEALTH MAINTENANCE F inal Result * (ABNORMAL) POCT hemoglobin A1c (12/21/2024 9:55 AM CDT) Hemoglobin A1C, POC 7.0(A) 4.0 - 5.6 % Blood 12/21/2024 9:55 AM CDT us Servando Torre MD POINT OF CARE TEST ORDERABL ES Final Result * Surgical pathology (12/07/2024 1:29 PM CDT) Tissue (Polyp(s), colon/colorectal, esophageal, gastric) 12/07/2024 1:29 PM CDT Narrative PATHOLOGY [facility] - 12/08/2024 12:42 PM CDT EPIC results best viewed via link to PDF [facility] D[facility] [place] [address] Note to Patients: This report may contain [...] Gender: F : 1945 (Age: 79) Address: [address] [place] [address] [address]ARD [address] [place] [phone] N: [id number] [facility] #: [id number] Taken:12/07/2024 Received:12/07/2024 Reported: 12/08/2024 Patient Type: [facility] Service: Gastro Location: Physician(s): Josué Cook M.D. Servando Torre M.D. Diagnosis: Large bowel, sigmoid colon, polyp, [...] Surgical Pathology and Flow Cytometry Departments at [facility] as part of an ongoing quality assurance lead program and in compliance with federally mandated [...] Surgical Pathology and Flow Cytometry Departments of [facility]. It has not been cleared or approved by the U. S. Food and Drug Administration. IMAGES AND SCANNED DOCUMENTS, IF INCLUDED, ONLY VIEWABLE IN PDF VERSION OF REPORT us Josué Cook MD LAB PATHOLOGY ORDERABL ES Final Result PATHOLOGY [facility] 3rd Floor [place], [place] [phone] * Colonoscopy (12/07/2024 1:12 PM CDT) Anatomical Region Laterality Modality Other Narrative Procedure Note Josué Cook MD - 12/07/2024 1:12 PM CDT GI ENDOSCOPY [facility] Patient Name: Radha Allen Procedure Date: 12/07/2024 1:12 PM Date of : 1945 Admit Type: Outpatient Age: 79 Gender: Female Attending MD: Josué Cook M.D. Room: [facility] ENDOSCOPY ROOM 8 Note Status: Finalized Procedure: [...] The scope was passed under direct vision.The CF [id number] endoscope was introduced through the anus [...] 3 PM CDT 12/07/2024 12:53 PM CDT us Josué Cook MD LAB POCT ORDERABLES - DEVICE Final Result Performing Organization Address City/State/[facility] Co de Phone Number AILEEN [facility] Department [place] [address] * [place] ARTHROCENTESIS ASPIR&/INJ MAJOR JT/BURSA W/O US (11/30/2024 [...] the procedure well with no immediate complications us Riri [facility]/BEDSIDE ORDER [place]ING Final [...] 4:03 PM - Electronically signed by Dylan MENG T: Report ID: [id number] Reading Location: [id number] Procedure Note Dylan Fitzpatrick MD - 10/21/2024 [...] Dylan Fitzpatrick M.D. KR T: Report ID: [id number] Reading Location: [id number] Tammy Meehan NP IMG XR PROCEDURES Final [...] Kailey Layton M.D. TW T: Report ID: [id number] Reading Location: [id number] Procedure Note Kailey Layton MD - 10/18/2024 [...] displaced fractures involving the left lateral 3rd [id number] ribs as well as potential nondisplaced fractures [...] Kailey Layton M.D. TW T: Report ID: [id number] Reading Location: [place] [address] us Marixa San [employer] [facility] IMG XR PROCEDURES Final Result * Albumin Creatinine Ratio, Urine (09/21/2024 10:05 AM STRATEGIC PLANNING ANALYST) Albumin Ur <12.0 mg/L Comment: Interpretive Data No reference range established. Current interpretive data was last revised 2018. Creatinine Ur 16.3 mg/dL AILEEN MATTHEW Comment: Interpretive Data No reference range established. Current interpretive data was last revised 2018. Albumin Creatinine Ratio, Ur See Comment 1 - 29 [facility] Comment:Unable to calculate Urine 09/21/2024 10:0 5 AM STRATEGIC PLANNING ANALYST 09/21/2024 10:55 PM STRATEGIC PLANNING ANALYST us Servando Torre MD LAB URINE ORDERABLES Final Result Performing Organization Address [facility] de Phone Number AILEEN [address] [place] [address] * eGFR (07/02/2024 10:20 AM STRATEGIC PLANNING ANALYST) eGFR 66 >=60 mL/min/1. 73 m2 Comment: [...] reviewed 2021. Blood 07/02/2024 10:2 0 AM STRATEGIC PLANNING ANALYST 07/02/2024 5:35 PM STRATEGIC PLANNING ANALYST us Kimberly Nicolas MD LAB BLOOD ORDERABLES Final Resu lt Performing Organization Address [facility] Co de Phone Number AILEEN MATTHEW [address] [place] [address] * (ABNORMAL) Lipid panel (07/02/2024 10:20 AM STRATEGIC PLANNING ANALYST) Cholesterol 190 30 - 199 mg/dL Comment: [...] 3. Jayy M et al. IFTIKHAR Cardiol. 2019November 25;5(5):540-548. doi: [...] AILEEN MATTHEW Blood 07/02/2024 10:2 0 AM STRATEGIC PLANNING ANALYST 07/02/2024 5:00 PM STRATEGIC PLANNING ANALYST us Servando Torre MD LAB BLOOD ORDERABLES Final Result AILEEN [address] Department [place] [address] * Dexa Axial Skeleton Bone Density 1 or 2 Site (12/12/2022 2:33 PM CDT) Anatomical Region Laterality Modality Body N/A Radiographic Keyanna ging Narrative 12/12/2022 3:00 PM CDT Patient Name: Radha Allen Date of : 1945 Date of scan: 12/12/2022 Bone mineral density was performed on a Open Me Discovery Densitometer. Based on machine cross-calibration and [...] by the International Society of Clinical Densitometry. [id number] us Servando A. Washington MD IMG DXA PROCEDURES Final Re sult from Last 3 Months or Most Recently Relevant to Health Maintenance Insurance MEDICARE [facility] MEDICARE SUPPLEMENT MEDICARE [facility] MEDICARE SUPPLEMENT MEDICARE [facility] MEDICARE [facility] Advance Directives For more information, please contact: [phone] * Full Code (Latest Code Status on [...] 9:30 AM 11/29/2022 3:28 PM Care Teams Color Matcher Relationship Specialty Start Date End Date Servando Torre MD [facility] [address] [address] PCP - General Family Medicine 06/19/22 Mariela Denton MD [address] [place] [address] Referring Physician Gastroenterology 06/19/22 Lexis Barroso OD [address], [place] [address] Business Services Sales Agent 09/19/22 Adria Burleson MD [address] [facility] [address] [place] [address] Consulting Physician Neurology 09/21/24 Aldo Castro MD [address] [place] [address] Referring Physician Ophthalmology 11/01/24 Josué Cook MD [address] [facility] [address] [place] [address] Consulting Physician Gastroenterology 11/01/24 Kimberly Nicolas MD [address] [facility] [address] [place] [address] Consulting Physician Neurology 12/21/24
[2025-01-06 19:10] VITALS: BP 160/80; PULSE 78; RESP 15; O2SAT 95
--- NOTE | 2025-01-06 19:46 | ED_ITS ---
HPI - Fall General Chief Complaint: Fall Stated Complaint: fell, hit head has lac Time Seen by Provider: 01/06/25 19:11 History of Present Illness HPI Narrative: Patient is an 79-year-old female who presents ER after falling and striking her head. She was trying to put a towel over a shower pole when she slipped falling backwards striking her head on a wall and landing on her buttock on the ground. No LOC. She has a laceration to the top of her head 2 cm in length. Tetanus shot up-to-date. No change in vision or hearing. No blood thinning medication. Patient does have some mild dementia. Related Data Home Medications ?Medication ?Instructions ?Recorded ?Confirmed ?Last Taken ?Type amlodipine 5 mg tablet 5 mg PO DAILY 08/18/21 09/13/24 09/13/24 History mesalamine 0.375 gram 0.75 g PO Q12H 08/18/21 09/13/24 09/13/24 History capsule,extended release 24 hr pantoprazole 40 mg tablet,delayed 40 mg PO HS 08/18/21 09/13/24 09/13/24 History release ferrous sulfate 324 mg (65 mg 324 mg PO DAILY 06/03/23 09/13/24 09/13/24 History iron) tablet,delayed release metformin 750 mg tablet,extended 750 mg PO DAILY 06/03/23 09/13/24 09/13/24 History release 24 hr vedolizumab 300 mg IV PUSH DIRECTED 06/03/23 09/14/24 08/03/24 History aspirin 81 mg capsule 81 mg PO QAM 03/20/24 09/13/24 09/13/24 History losartan 100 mg tablet 100 mg PO HS 03/20/24 09/13/24 09/13/24 History pravastatin 40 mg tablet 80 mg PO HS 03/20/24 09/13/24 09/13/24 History rivastigmine 4.6 mg/24 hour 4.6 mg topical 03/20/24 09/13/24 09/13/24 History transdermal patch calcium 315 mg (as 1 tablet PO DAILY 08/11/24 09/13/24 09/13/24 History citrate)-vitamin D3 5 mcg (200 unit) tablet (Calcium Citrate + D) lamotrigine 200 mg tablet 200 mg PO Q12H 08/11/24 09/13/24 09/13/24 History brivaracetam 50 mg tablet 50 mg PO BID 09/13/24 09/14/24 09/13/24 History (Briviact) Allergies Allergy/AdvReac Type Severity Reaction Status Date / Time Penicillins Allergy Rash Verified 01/06/25 19:17 Review of Systems Review of Systems: All systems reviewed & are unremarkable except as noted in HPI and below Constitutional: Constitutional: Reports no additional constitutional complaints Eyes: Eyes: Reports no additional eye complaints ENT: Reports system reviewed and no additional complaints, except as documented Neurologic: Reports system reviewed and no additional complaints, except as documented PMF Past Medical History Medical History Dementia of the Alzheimer's type Diabetes Osteopenia Pseudogout of knee Dementia Complex partial seizures MCI (mild cognitive impairment) Deafness in right ear Gastroesophageal reflux disease Hyperlipidemia Ulcerative colitis Hypertension Surgical History Surgical History History of dilation and curettage History of hip surgery Left hip surgery. Family History Family History Mother Diabetes mellitus Hypertension Cancer Cerebrovascular accident Afib Father Cancer Social History Social History Social History: Lives in [place]. Nonsmoker. No alcohol or illicit substance use. 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 Surrogate decision maker: Aby Riley, daughter. Code status: Full code. Smoking status: Never smoker Second hand tobacco smoke exposure: Yes Alcohol intake: never Substance use: never Substance use type: does not use Do You Feel Safe in your Home?: Yes Lack of Transportation: No Lack of Food: Never True Current Housing: I Have Housing Concerned About Future Housing: No Difficulty Paying Gas/Electric Bills: No Difficulty Paying for Meds: No Currently Unemployed: No Education: High School Diploma/GED Difficulty w/ Childcare or Family Care: No Spiritual care concerns: No Exam Narrative: GENERAL: Well-appearing, well-nourished, and in no acute distress. HEAD: Normocephalic, 2 cm laceration of scalp. EYES: PERRL and EOMI. ENT: Mucous membranes moist. NECK: Supple. FROM w/o midline tenderness. CHEST: Clear to auscultation. No respiratory distress. HEART: Regular rate and rhythm. Normal peripheral pulses. EXTREMITIES: Normal range of motion. No edema. SKIN: Warm, dry, no rash. NEURO: Alert and oriented x3. PSYCH: Normal mood and affect. Course Course Emergency Course: Laceration repaired. Imaging negative for bleed. Appropriate for discharge. Vital Signs Vital signs: Vital Signs Pulse Rate 78 01/06/25 19:10 Respiratory Rate 15 01/06/25 19:10 Blood Pressure 160/80 H 01/06/25 19:10 Pulse Oximetry 95 01/06/25 19:10 Oxygen Delivery Room Air 01/06/25 19:10 Pulse Rate 78 01/06/25 19:10 Respiratory Rate 15 01/06/25 19:10 Blood Pressure 160/80 H 01/06/25 19:10 Pulse Oximetry 95 01/06/25 19:10 Oxygen Delivery Room Air 01/06/25 19:10 Procedures Laceration Laceration 1: Date: 01/06/25 Time: 20:30 Site: scalp Size (cm): 2 Description: linear Depth: simple, single layer Pre-repair: wound explored and irrigated ====== Skin Level ====== Skin layer closed with: claudia Number of sutures: 3 ====== Subcutaneous Layer ====== ====== Muscle Layer ====== ====== Tendon Layer ====== MDM - Fall Imaging Data Radiologist's impression: ITS Impressions Head CT 01/06/25 21:35 IMPRESSION: No acute intracranial findings. Discharge Plan Discharge Clinical Impression: Laceration of scalp Patient Disposition: Home Condition: Stable Instructions: Laceration (ED), Staple Care (ED) Additional Instructions: Return ER if you have recurrent fall, you have increased pain at your laceration site, have pus draining from the wound, or you have additional concerns. Remove your claudia in 5-7 days. Patient Language: Slovak Prescriptions: No Action amlodipine 5 mg tablet 5 mg PO DAILY pantoprazole 40 mg tablet,delayed release (DR/EC) 40 mg PO HS mesalamine 0.375 gram capsule,extended release 24hr 0.75 g PO Q12H metformin 750 mg tablet extended release 24 hr 750 mg PO DAILY vedolizumab 300 mg 300 mg IV PUSH DIRECTED Rx Instructions: Infuse 5ml every 8 weeks ferrous sulfate 324 mg (65 mg iron) tablet,delayed release (DR/EC) 324 mg PO DAILY pravastatin 40 mg tablet 80 mg PO HS losartan 100 mg tablet 100 mg PO HS rivastigmine 4.6 mg/24 hour patch 24 hour 4.6 mg topical HS aspirin 81 mg Capsule 81 mg PO QAM calcium citrate-vitamin D3 [Calcium Citrate + D] 315 mg-5 mcg (200 unit) tablet 1 tablet PO DAILY lamotrigine 200 mg tablet 200 mg PO Q12H Briviact 50 mg tablet 50 mg PO BID Follow-up/Referrals: Yelitza,Servando Bernstein MD [Primary Care Provider] - 1 Week
--- OUTSIDE RECORDS SUMMARY | 2025-01-06 19:47 | XMS_ITS | Clinical Summary ---
Author Organization [facility] Address [address] [place] [address] Care Team Providers Care Willow Machine Tender Name Role Phone Servando Torre MD Primary Care Provider Mariela Denton MD Unavailable [phone] Lexis Barroso OD Unavailable [phone] Adria Burleson MD Unavailable Aldo Castro MD Unavailable Josué Cook MD Unavailable Kimberly Nicolas MD Unavailable [phone] Allergies Active Allergy Reactions Criticality Noted Date [...] epilepticus 03/17/2023 At risk for falls 03/13/2023 FDC (current) use of oral hypoglycemic fuentes gs [...] 05/29 Assessment & Plan (07/05/2024 3:20 PM AVIONICS SYSTEMS REPAIRER): A(n) yearly Medicare Annual Wellness Visit has [...] months Assessment & Plan (06/26/2023 2:02 PM AVIONICS SYSTEMS REPAIRER): A(n) yearly Medicare Annual Wellness Visit has [...] months Assessment & Plan (06/23/2022 3:06 PM AVIONICS SYSTEMS REPAIRER): A(n) initial Medicare Annual Wellness Visit has [...] (06/19/2022): Added automatically from request for surgery [id number] Ear ringing 03/03/2013 Asymmetrical sensorineural hearing loss 03/03/20 13 Stress fracture 07/07/2012 Arthralgia of hip 02/06/2011 Resolved Problems Problem Noted Date Diagnosed Date Resolved Date Hospital discharge follow-up 06/11/2023 08/07/2023 Assessment & Plan (06/11/2023 1:42 PM AVIONICS SYSTEMS REPAIRER): I have reviewed the hospital record, medications, [...] Description 12/21/2024 9:15 AM CDT Office Visit [facility] Primary Care at [address] [phone] Servando Torre MD Hypertension associated with diabetes (HCC) (Primary Dx); Mixed diabetic hyperlipidemia associated with type 2 diabetes mellitus (HCC); Screening for osteoporosis; Osteopenia of both hips; Seizure (HCC) 12/11/2024 Results Follow-Up [facility] Gastroenterology [address] [facility] Advanced Medicine 12th [place] [address] [place] [address] Josué Cook MD Surgical pathology 12/07/2024 1:01 PM CDT Anesthesia Event [facility] [address] [facility] [address] [place] [address] Luis George MD 12/07/2024 12:30 PM CDT - 12/07/2024 1:00 PM CDT Surgery [facility] Digestive Disease [address] [address] Josué Cook MD COLON REMOVAL SNARE 12/07/2024 11:14 AM CDT - 12/07/2024 2:22 PM CDT Hospital Encounter [facility] Disease [address] [address] Josué Cook MD Chronic ulcerative colitis, unspecified complication (HCC); Colon cancer screening Discharge Disposition: Discharge to home or self care 12/02/2024 Telephone [facility] Specialty Services [address] [place] [phone] Marie Laureano RN GI PROCEDURE 3 DAY PRE CALL 11/30/2024 2:45 PM CDT Office Visit [facility] Orthopedic and Sports Medicine [address] [place] [phone] Riri Gonzalez PA Primary osteoarthritis of both knees (Primary Dx) 11/30/2024 Telephone [facility] Specialty Services [address] [place] [phone] Marie Laureano, ELMO GI PROCEDURE 7 DAY PRE CALL 11/10/2024 12:30 PM CDT Office Visit [facility] Epilepsy [address] [place] [address] for Advanced Medicine 6th [place] [phone] Adria Burleson MD Seizure (HCC) (Primary Dx) 11/01/2024 3:00 PM CDT Office Visit [facility] Primary Care at [address] [address] Servando Torre MD Preoperative evaluation to rule out surgical contraindication (Primary Dx) 10/21/2024 3:00 PM CDT Ancillary Procedure [facility] Imaging at [address] [phone] Right hip pain 10/21/2024 2:30 PM CDT Office Visit [facility] Convenient Care at [address] [phone] Tammy Meehan NP Right hip pain (Primary Dx); Fall, initial encounter 10/21/2024 Results Follow-Up [facility] Convenient Care at [address] [phone] Tammy Meehan NP XR Hip Right W Pelvis 2 or 3 Views 10/18/2024 Results Follow-Up [facility] Primary Care at [address] [phone] Marixa San, CONSTANZA XR Ribs Left W PA Chest 3 or More Views 10/15/2024 Telephone [facility] Primary Care at [address] [phone] Servando Torre MD x Ray 10/13/2024 Telephone [facility] Primary Care at [address] [address] Servando Torre MD Billing Question 10/12/2024 11:30 AM CDT Ancillary Procedure [facility] Imaging at [address] [address] Fall, initial encounter 10/11/2024 Telephone [facility] Primary Care at [address] [address] Servando Torre MD Needing a pre op appointment 10/08/2024 Telephone [facility] Primary Care at [address] [address] Servando Torre MD Medical Question/Miscellaneous [...] on file Legal Sex Female 9:30 AM AVIONICS SYSTEMS REPAIRER Gender Identity Female 04/05/2022 6:17 PM [...] GLUCOSE DEVICE Routine 12/07/2024 12:53 PM CDT [place] ARTHROCENTESIS ASPIR&/INJ MAJOR JT/BURSA W/O US Routine [...] CREATININE RATIO, URINE Routine 09/21/2024 10:05 AM AVIONICS SYSTEMS REPAIRER Hypertension associated with diabetes (HCC) EGFR Routine 07/02/2024 10:20 AM AVIONICS SYSTEMS REPAIRER Weakness generalized LIPID PANEL Routine 07/02/2024 10:20 AM AVIONICS SYSTEMS REPAIRER Hypertension associated with diabetes (HCC) DEXA AXIAL [...] results best viewed via link to PDF [facility] Pathology [facility] [place] [address] Note to Patients: This report may contain [...] : 1945 (Age: 79) Address: [address] [facility], [place] [address] Hospital #: [id number] Taken:12/07/2024 Received:12/07/2024 Reported: 12/08/2024 Patient Type: [facility] Service: Gastro Location: Physician(s): Clare Russell M.D. [...] Surgical Pathology and Flow Cytometry Departments at [facility] as part of an ongoing quality process auditor program and in compliance with federally mandated [...] Surgical Pathology and Flow Cytometry Departments of [facility]. It has not been cleared or approved by the U. S. Food and Drug Administration. IMAGES AND SCANNED DOCUMENTS, IF INCLUDED, ONLY VIEWABLE IN PDF VERSION OF REPORT us Josué Cook MD LAB PATHOLOGY ORDERABL ES Final Result PATHOLOGY [facility] 3rd Floor [place], [place] [phone] * Colonoscopy (12/07/2024 1:12 PM CDT) Anatomical Region Laterality Modality Other Narrative Procedure Note Josué Cook MD - 12/07/2024 1:12 PM CDT GI ENDOSCOPY NORTH Patient Name: Radha Allen Procedure Date: 12/07/2024 1:12 PM Date of : 1945 Admit Type: Outpatient Age: 79 Gender: Female Attending MD: Josué Cook M.D. Room: [facility] ENDOSCOPY ROOM 8 Note Status: Finalized Procedure: [...] The scope was passed under direct vision.The [id number] endoscope was introduced through the anus [...] POCT ORDERABLES - DEVICE Final Result [facility] One [facility] Department [place] [address] * [place] ARTHROCENTESIS ASPIR&/INJ MAJOR JT/BURSA W/O US (11/30/2024 [...] Dylan Fitzpatrick M.D. KR T: Report ID: [id number] Reading Location: [place] [address] Procedure Note Dylan Fitzpatrick MD - 10/21/2024 [...] Dylan Fitzpatrick M.D. KR T: Report ID: [id number] Reading Location: [place] [address] Tammy Meehan NP IMG XR PROCEDURES Final [...] Kailey Layton M.D. TW T: Report ID: [id number] Reading Location: [id number] Procedure Note Kailey Layton MD - 10/18/2024 [...] displaced fractures involving the left lateral 3rd [id number] ribs as well as potential nondisplaced fractures [...] Kailey Layton M.D. TW T: Report ID: [id number] Reading Location: [id number] Marixa San MERCHANDISING CONSULTANT IMG XR PROCEDURES Final Result * Albumin Creatinine Ratio, Urine (09/21/2024 10:05 AM AVIONICS SYSTEMS REPAIRER) Albumin Ur <12.0 mg/L Comment: Interpretive Data No reference range established. Current interpretive data was last revised 2018. Creatinine Ur 16.3 mg/dL AILEEN Comment: Interpretive Data No reference range established. Current interpretive data was last revised 2018. Albumin Creatinine Ratio, Ur See Comment 1 - 29 AILEEN MATTHEW Comment:Unable to calculate Urine 09/21/2024 10:0 5 AM AVIONICS SYSTEMS REPAIRER 09/21/2024 10:55 PM AVIONICS SYSTEMS REPAIRER Servando Torre MD LAB URINE ORDERABLES Final Result Performing Organization Address City/State/[facility] Co de Phone Number AILEEN [address] Department [place] [address] * eGFR (07/02/2024 10:20 AM AVIONICS SYSTEMS REPAIRER) eGFR 66 >=60 mL/min/1. 73 m2 Comment: [...] reviewed 2021. Blood 07/02/2024 10:2 0 AM AVIONICS SYSTEMS REPAIRER 07/02/2024 5:35 PM AVIONICS SYSTEMS REPAIRER us Kimberly Nicolas MD LAB BLOOD ORDERABLES Final Resu lt AILEEN MATTHEW [address] [address] Department of Laboratories [place] [id number] * (ABNORMAL) Lipid panel (07/02/2024 10:20 AM AVIONICS SYSTEMS REPAIRER) Cholesterol 190 30 - 199 mg/dL Comment: [...] AILEEN MATTHEW Blood 07/02/2024 10:2 0 AM AVIONICS SYSTEMS REPAIRER 07/02/2024 5:00 PM AVIONICS SYSTEMS REPAIRER us Servando Torre MD LAB BLOOD ORDERABLES Final Result AILEEN MATTHEW [address] [address] Department [place] [address] * Dexa Axial Skeleton Bone Density 1 or 2 Site (12/12/2022 2:33 PM CDT) Anatomical Region Laterality Modality Body N/A Radiographic Keyanna ging Narrative 12/12/2022 3:00 PM CDT Patient Name: Radha Allen Date of : 1945 Date of scan: 12/12/2022 Bone mineral density was performed on a [employer] Discovery Densitometer. Based on machine cross-calibration and [...] by the International Society of Clinical Densitometry. [id number] Servando Torre MD IMG DXA PROCEDURES Final Re sult from Last 3 Months or Most Recently Relevant to Health [place] [address] [facility] MEDICARE SUPPLEMENT MEDICARE [employer] MEDICARE SUPPLEMENT MEDICARE [facility] MEDICARE [facility] Advance Directives For more information, please contact: [phone] * Full Code (Latest Code Status on [...] 9:30 AM 11/29/2022 3:28 PM Care Teams Willow Machine Tender Relationship Specialty Start Date End Date Servando Torre MD [address] [facility] [address] [place] [address] PCP - General Family Medicine 06/19/22 Mariela Dentno MD [address] [place] [address] Referring Physician Gastroenterology 06/19/22 Lexis Barroso OD [address] [place] [address] Die Casting Machine Operator 09/19/22 Adria Burleson MD 1 [facility] [address] [place] [address] Consulting Physician Neurology 09/21/24 Aldo Castro MD [address] [place] [address] Referring Physician Ophthalmology 11/01/24 Josué Cook MD 1 [facility] [address] [place] [address] Consulting Physician Gastroenterology 11/01/24 Kimberly Nicolas MD 1 [facility] [address] [place] [address] Consulting Physician Neurology 12/21/24
--- OUTSIDE RECORDS SUMMARY | 2025-01-06 19:47 | XMS_ITS | Referral Summary ---
Author Organization [facility] Address [address] [place] [address] Care Team Providers Care Manager Fast Food Name Role Phone Servando Torre MD Primary Care Provider Mariela Denton MD Unavailable [phone] Lexis Barroso OD Unavailable [phone]- [phone] Adria Burleson MD Unavailable Aldo Castro MD Unavailable Josué Cook MD Unavailable Kimberly Nicolas MD Unavailable [phone] Encounters Date Type Department Care Team Description 12/21/2024 9:15 AM CDT Office Visit [facility] Primary Care at [address] [phone] Servando Torre MD Hypertension associated with diabetes (HCC) (Primary Dx); Mixed diabetic hyperlipidemia associated with type 2 diabetes mellitus (HCC); Screening for osteoporosis; Osteopenia of both hips; Seizure (HCC) 12/11/2024 Results Follow-Up [facility] Gastroenterology [address] [facility] 12th [place] [address] [place] [address] Josué Cook MD Surgical pathology 12/07/2024 12:30 PM CDT - 12/07/2024 1:00 PM CDT Surgery [facility] Digestive Disease [place] [address] [facility] [address] [place] [address] Josué Cook MD COLON REMOVAL SNARE 12/07/2024 1:01 PM CDT Anesthesia Event [facility] [address] [facility] [address] [place] [address] Luis George MD 12/07/2024 11:14 AM CDT - 12/07/2024 2:22 PM CDT Hospital Encounter [facility] Digestive Disease [address] [place] [address] Josué Cook MD Chronic ulcerative colitis, unspecified complication (HCC); Colon cancer screening Discharge Disposition: Discharge to home or self care 12/02/2024 Telephone [facility] Specialty Services [address] [place] [phone] Marie Laureano RN GI PROCEDURE 3 DAY PRE CALL 11/30/2024 Telephone [facility] Specialty Services [address] [place] [phone] Marie Laureano RN GI PROCEDURE 7 DAY PRE CALL 11/30/2024 2:45 PM CDT Office Visit [facility] Orthopedic and Sports Medicine [address] [place], [place] [phone] Riri Gonzalez PA Primary osteoarthritis of both knees (Primary Dx) 11/10/2024 12:30 PM CDT Office Visit [facility] Epilepsy [facility] Advanced Medicine 6th [place] [address] [place] [address] Adria Burleson MD Seizure (HCC) (Primary Dx) 11/01/2024 3:00 PM CDT Office Visit [facility] Primary Care at [place] [phone] Servando Torre MD Preoperative evaluation to rule out surgical contraindication (Primary Dx) 10/21/2024 Results Follow-Up [facility] Care at [address] [phone] Tammy Meehan, CONSTANZA XR Hip Right W Pelvis 2 or 3 Views 10/21/2024 3:00 PM CDT Ancillary Procedure [facility] Imaging at [address] [phone] Right hip pain 10/21/2024 2:30 PM CDT Office Visit [facility] Convenient Care at [address] [phone] Tammy Meehan NP Right hip pain (Primary Dx); Fall, initial encounter 10/18/2024 Results Follow-Up [facility] Primary Care at [address] [address] Marixa San NP XR Ribs Left W PA Chest 3 or More Views 10/15/2024 Telephone [facility] Primary Care at [address] [address] Servando Torre MD x Ray 10/13/2024 Telephone [facility] Primary Care at [address] [address] Servando Torre MD Billing Question 10/12/2024 11:30 AM CDT Ancillary Procedure [facility] Imaging at [address] [address] Fall, initial encounter 10/11/2024 Telephone [facility] Primary Care at [address] [address] Servando Torre MD Needing a pre op appointment 10/08/2024 Telephone [facility] Primary Care at [address] [address] Servando Torre MD Medical Question/Miscellaneous [...] at: [facility] ([facility] order in [facility] under 'Procedures' tab). 1 each 023 [...] 05/29 Assessment & Plan (07/05/2024 3:20 PM SAND MILL OPERATOR): A(n) yearly Medicare Annual Wellness Visit [...] months Assessment & Plan (06/26/2023 2:02 PM SAND MILL OPERATOR): A(n) yearly Medicare Annual Wellness Visit [...] months Assessment & Plan (06/23/2022 3:06 PM SAND MILL OPERATOR): A(n) initial Medicare Annual Wellness Visit [...] (06/19/2022): Added automatically from request for surgery [id number] Ear ringing 03/03/2013 Asymmetrical sensorineural hearing loss 03/03/20 13 Stress fracture 07/07/2012 Arthralgia of hip 02/06/2011 Resolved Problems Problem Noted Date Diagnosed Date Resolved Date Hospital discharge follow-up 06/11/2023 08/07/2023 Assessment & Plan (06/11/2023 1:42 PM SAND MILL OPERATOR): I have reviewed the hospital record, [...] on file Legal Sex Female 9:30 AM SAND MILL OPERATOR Gender Identity Female 04/05/2022 6:17 [...] GLUCOSE DEVICE Routine 12/07/2024 12:53 PM CDT [place] ARTHROCENTESIS ASPIR&/INJ MAJOR JT/BURSA W/O US [...] CREATININE RATIO, URINE Routine 09/21/2024 10:05 AM SAND MILL OPERATOR Hypertension associated with diabetes (HCC) EGFR Routine 07/02/2024 10:20 AM SAND MILL OPERATOR Weakness generalized LIPID PANEL Routine 07/02/2024 10:20 AM SAND MILL OPERATOR Hypertension associated with diabetes (HCC) DEXA AXIAL [...] gastric) 12/07/2024 1:29 PM CDT Narrative PATHOLOGY [facility] - 12/08/2024 12:42 PM CDT EPIC results best viewed via link to PDF [facility] Laboratory [place] [address] Note to Patients: This report may contain [...] Gender: F : 1945 (Age: 79) Address: [address] [place] [address] [address] [place] [phone] N: [id number] [facility] #: [id number] Taken:12/07/2024 Received:12/07/2024 Reported: 12/08/2024 Patient Type: [facility] Service: Gastro Location: Physician(s): Josué Cook M.D. [...] Surgical Pathology and Flow Cytometry Departments at [facility] as part of an ongoing lead quality control technician program and in compliance with federally mandated [...] Surgical Pathology and Flow Cytometry Departments of [facility]. It has not been cleared or approved by the U. S. Food and Drug Administration. IMAGES AND SCANNED DOCUMENTS, IF INCLUDED, ONLY VIEWABLE IN PDF VERSION OF REPORT us Josué Cook MD LAB PATHOLOGY ORDERABL ES Final Result PATHOLOGY [facility] 3rd Floor [place] [phone] * Colonoscopy (12/07/2024 1:12 PM CDT) Anatomical Region Laterality Modality Other Narrative Procedure Note Josué Cook MD - 12/07/2024 1:12 PM CDT GI ENDOSCOPY NORTH Patient Name: Radha Allen Procedure Date: 12/07/2024 1:12 PM Date of : 1945 Admit Type: Outpatient Age: 79 Gender: Female Attending MD: Josué Cook M.D. Room: [facility] ENDOSCOPY ROOM 8 Note Status: Finalized [...] scope was passed under direct vision.The CF [id number] endoscope was introduced through the anus [...] - DEVICE Final Result Performing Organization Address City/State/[facility] Co de Phone Number AILEEN [facility] [place] [address] * [place] ARTHROCENTESIS ASPIR&/INJ MAJOR JT/BURSA W/O US (11/30/2024 [...] signed by Dylan MENG T: Report ID: [id number] Reading Location: [id number] Procedure Note Dylan Fitzpatrick MD - 10/21/2024 [...] Dylan Fitzpatrick M.D. KR T: Report ID: [id number] Reading Location: [id number] Tammy Meehan NP IMG XR PROCEDURES Final [...] Kailey Layton M.D. TW T: Report ID: [id number] Reading Location: [id number] Procedure Note Kailey Layton MD - 10/18/2024 [...] displaced fractures involving the left lateral 3rd [id number] ribs as well as potential nondisplaced fractures [...] Kailey Layton M.D. TW T: Report ID: [id number] Reading Location: [place] [address] us Marixa San GORE STITCHER IMG XR PROCEDURES Final Result * Albumin Creatinine Ratio, Urine (09/21/2024 10:05 AM SAND MILL OPERATOR) Albumin Ur <12.0 mg/L Comment: Interpretive Data No reference range established. Current interpretive data was last revised 2018. Creatinine Ur 16.3 mg/dL AILEEN MATTHEW Comment: Interpretive Data No reference range established. Current interpretive data was last revised 2018. Albumin Creatinine Ratio, Ur See Comment 1 - 29 [facility] Comment:Unable to calculate Urine 09/21/2024 10:0 5 AM SAND MILL OPERATOR 09/21/2024 10:55 PM SAND MILL OPERATOR us Servando Torre MD LAB URINE ORDERABLES Final Result Performing Organization Address [facility] de Phone Number AIELEN [address] [address] [place] [address] * eGFR (07/02/2024 10:20 AM SAND MILL OPERATOR) eGFR 66 >=60 mL/min/1. 73 m2 [...] reviewed 2021. Blood 07/02/2024 10:2 0 AM SAND MILL OPERATOR 07/02/2024 5:35 PM SAND MILL OPERATOR us Kimberly Nicolas MD LAB BLOOD ORDERABLES Final Resu lt Performing Organization Address [facility] Co de Phone Number AILEEN MATTHEW [address] [address] Department [place] [employer] [place] [address] * (ABNORMAL) Lipid panel (07/02/2024 10:20 AM SAND MILL OPERATOR) Cholesterol 190 30 - 199 mg/dL Comment: [...] AILEEN MATTHEW Blood 07/02/2024 10:2 0 AM SAND MILL OPERATOR 07/02/2024 5:00 PM SAND MILL OPERATOR us Servando Torre MD LAB BLOOD ORDERABLES Final Result AILEEN [address] [address] Department [place] [address] * Dexa Axial Skeleton Bone Density 1 or 2 Site (12/12/2022 2:33 PM CDT) Anatomical Region Laterality Modality Body N/A Radiographic Keyanna ging Narrative 12/12/2022 3:00 PM CDT Patient Name: Radha Allen Date of : 1945 Date of scan: 12/12/2022 Bone mineral density was performed on a [employer] Discovery Densitometer. Based on machine cross-calibration and [...] by the International Society of Clinical Densitometry. [id number] us Servando A. Dayton MD IMG DXA PROCEDURES Final Re sult from Last 3 Months or Most Recently Relevant to Health Maintenance Insurance MEDICARE [facility] MEDICARE SUPPLEMENT MEDICARE [facility] MEDICARE SUPPLEMENT MEDICARE [facility] MEDICARE [facility] Advance Directives For more information, please contact: [phone] * Full Code (Latest Code Status on [...] 9:30 AM 11/29/2022 3:28 PM Care Teams Manager Fast Food Relationship Specialty Start Date End Date Servando Torre MD [facility] [address] PCP - General Family Medicine 06/19/22 Mariela Denton MD [address] [place] [address] Referring Physician Gastroenterology 06/19/22 Lexis Barroso OD [address] [address] Distribution Transformer Assembler 09/19/22 Adria Burleson MD 1 [facility] [address] [place] [address] Consulting Physician Neurology 09/21/24 Aldo Castro MD [address] [place] [address] Referring Physician Ophthalmology 11/01/24 Josué Cook MD 1 [facility] [address] [place] [address] Consulting Physician Gastroenterology 11/01/24 Kimberly Nicolas MD 1 [facility] [address] [place] [address] Consulting Physician Neurology 12/21/24
--- OUTSIDE RECORDS SUMMARY | 2025-01-06 19:47 | XMS_ITS | Encounter Summary ---
Author Organization [facility] Address [address] [place] [address] Phone Care Team Providers Care Senior Graduate Advisor Name Role Phone Servando Torre MD Primary Care Provider Mariela Denton MD Unavailable [phone] Lexis Barroso OD Unavailable [phone] Adria Burleson MD Unavailable Aldo Castro MD Unavailable Josué Cook MD Unavailable [phone] Kimberly Nicolas MD Unavailable [phone] Encounter Details Date Type Department Care Team (Late st Contact Info) Description 12/11/2024 Results Follow-Up [facility] G[facility] [address] [facility] 12th [place] [address] [place] [address] Josué Cook MD [address] [facility] [address] [address] [place] [address] Surgical pathology Social History Tobacco Use Types [...] on file Legal Sex Female 9:30 AM MARRIAGE AND FAMILY TEACHER Gender Identity Female 04/05/2022 6:17 PM [...] risk of colon cancer. Josué Cook MD [employer] Workersnuff grinder Department of Gastroenterology [facility] documented in this encounter Plan of Treatment Not on file documented as of this encounter Visit Diagnoses Not on filedocumented in this encounter Care Teams Senior Graduate Advisor Relationship Specialty Start Date End Date Servando Torre MD [address] [address] PCP - General Family Medicine 06/19/22 Mariela Denton MD [address] [place] [address] Referring Physician Gastroenterology 06/19/22 Lexis Barroso OD [address] [place] [address] Extractor And Wringer Operator 09/19/22 Adria Burleson MD 1 [facility] [address] [place] [address] Consulting Physician Neurology 09/21/24 Aldo Castro MD [address] [place] [address] Referring Physician Ophthalmology 11/01/24 Josué Cook MD 1 [facility] [address] [place] [address] Consulting Physician Gastroenterology 11/01/24 Kimberly Nicolas MD 1 [facility] [address] [place] [address] Consulting Physician Neurology 12/21/24 documented as of this encounter
--- OUTSIDE RECORDS SUMMARY | 2025-01-06 19:47 | XMS_ITS | Continuity of Care Document ---
Author Organization [facility] Address [address] [facility] [address] [place] [address] Phone Care Team Providers Care Call Center Manager Name Role Phone Saul Ribera PT Unavailable [...] Diagnoses Date Provider Providers Copied on Encounter [facility], [id number], tel:[phone] [place] No Information 3 Bacilio Saul. . [facility], [id number], tel:[phone] [facility] No Information 3 Bacilio Saul. . Referring Provider: Servando Bernstein, [facility] [place], [address]. tel:[phone] [facility] [address], [id number], tel:[phone] [facility] No Information 3 Bacilio Saul. . Referring Provider: Servando Bernstein, [facility] [place], [address]. tel:[phone] [facility] [address], [id number], tel:[phone] [facility] Urge incontinence 3 Bacilio Saul. . Referring Provider: Servando Bernstein, [facility] [place], [address]. tel:[phone] [facility], [address] [facility], [place], [place], [id number], [place] tel:[phone] [facility] No Information [place]-1 3 Bacilio Saul. . Referring Provider: Servando Bernstein, [address] [place], [address]. tel:[phone] [facility] [address] [facility], [place], [place], [id number], [place] tel:[phone] [facility] No Information [place]-1 - 3 Bacilio Saul. . Referring Provider: Servando Bernstein, [address] [place], [address]. tel:[phone] [facility] [address] [address], [place], [id number], tel:[phone] [facility] No Information [place]-0 6 3 Bacilio Saul. . Referring Provider: Servando Bernstein, [address] [place], [address]. tel:[phone] [facility] [address] [address], [place], [id number], tel:[phone] [facility] No Information [place]-0 3 Bacilio Saul. . Referring Provider: Servando Bernstein, [address] [place], [address]. tel:[phone] [facility] [address] [facility], [place], [address], [place] tel:[phone] [facility] No Information [place]-0 - 3 Bacilio Saul. . Referring Provider: Servando Bernstein, [address] [place], [address]. tel:[phone] [facility], [address] [facility], [place], [place], [id number], [place] tel:[phone] [facility] No Information November- 3 Bacilio Saul. . Referring Provider: Servando Bernstein, [address] [facility], [place], [address]. tel:[phone] [facility], [address] [address], [place], [place], [id number], tel:[phone] [facility] No Information November- 3 Bacilio Saul. . Referring Provider: Servando Bernstein, [address] [facility], [place], [address]. tel:[phone] [facility], [address] [address], [place], [place], [id number], tel:[phone] [facility] No Information November- 3 Bacilio Saul. . Referring Provider: Servando Bernstein, [address] [place], [address]. tel:[phone] [facility], [address] [address], [place], [place], [address], tel:[phone] [facility] No Information 3 Bacilio Saul. . Referring Provider: Servando Bernstein, [address] [place], [address]. tel:[phone], [id number], tel:[phone] [facility] No Information November- 3 Bacilio Saul. . Referring Provider: Servando Bernstein, [address] [place], [address]. tel:[phone] [facility], [address] [address], [place], [place], [address], tel:[phone] [facility] No Information 3 Bacilio Saul. . Referring Provider: Servando Bernstein, [address] [place], [address]. tel:[phone] [facility] [address], [place], [place], [address], [place] tel:[phone] [facility] No Information May-0 9-202 3 Bacilio Saul. . Referring Provider: Servando Bernstein, [address] [place], [address]. tel:[phone] [facility] [address] [address], [place], [id number], [place] tel:[phone] [facility] No Information May-0 3-202 3 Bacilio Saul. . Referring Provider: Servando Bernstein, [address] [place], [address]. tel:[phone] [facility], [address] [address], [place], [place], [id number], tel:[phone] [facility] No Information May-0 2-202 3 Bacilio Saul. . Referring Provider: Servando Bernstein, [address] [place], [address]. tel:[phone] [facility], [id number], tel:[phone] [facility] No Information Apr-2 7-202 3 Bacilio Saul. . Referring Provider: Servando Bernstein, [address] [place], [address]. tel:[phone] [facility], [id number], [place] tel:[phone] [facility] Unspecified urinary incontinenceUrge incontinence Apr-2 5-202 3 Bacilio Saul. . Referring Provider: Servando Bernstein, [address] [place], [address]. tel:[phone] [facility], [address] [address], [place], [address], [place] tel:[phone] [facility] No Information Apr-2 0-202 3 Bacilio Saul. . Referring Provider: Servando Bernstein, [address] [facility], [place], [address]. tel:[phone] [facility], [address] [address], [place], [place], [address], tel:[phone] [facility] No Information Apr-1 8-202 3 Bacilio Saul. . Referring Provider: Servando Bernstein, [address] [facility], [place], [address]. tel:[phone] [facility], [address] [address], [place], [address], [place] tel:[phone] [facility] No Information Apr-1 4-202 3 Bacilio Saul. . Referring Provider: Servando Bernstein, [address] [place], [address]. tel:[phone] [facility], [address] [address], [place], [address], [place] tel:[phone] [facility] No Information Apr-1 3-202 3 Bacilio Saul. . Referring Provider: Servando Bernstein, [address] [place], [address]. tel:[phone] [facility], [address], [id number], [place] tel:[phone] [facility] No Information Apr-0 6-202 3 Bacilio Saul. . Referring Provider: Servando Bernstein, [address] [place], [address]. tel:[phone] [facility] [address], [place], [address], [place] tel:[phone] [facility] No Information Apr-0 4-202 3 Bacilio Saul. . Referring Provider: Servando Bernstein, [address] [place], [address]. tel:[phone] [place] [address], [address] [address], [place], [address], [place] tel:[phone] [facility] No Information Mar-3 1-202 3 Bacilio Saul. . Referring Provider: Servando Bernstein, [address] [place], [address]. tel:[phone] [facility] [address], [place], [address], [place] tel:[phone] [facility] No Information Mar-3 0-202 3 Bacilio Saul. . Referring Provider: Servando Bernstein, [address] [place], [address]. tel:[phone] [facility] [address], [place], [place], [address], tel:[phone] [facility] No Information Mar-2 3-202 3 Bacilio Saul. . Referring Provider: Servando Bernstein, [address] [place], [address]. tel:[phone] [facility], [id number], [place] tel:[phone] [facility] No Information Mar-2 1-202 3 Bacilio Saul. . Referring Provider: Servando Bernstein, [address] [place], [address]. tel:[phone] [facility] [address], [place], [address], [place] tel:[phone] [facility] No Information Mar-1 5- 3 Bacilio Saul. . Referring Provider: Servando Bernstein, [address] [place], [address]. tel:[phone] [facility] [address], [place], [address], [place] tel:[phone] [facility] Unspecified urinary incontinenceUnsp ecified urinary incontinence Mar-1 3-202 3 Bacilio Saul. . Referring Provider: Servando Bernstein, [address] [facility], [place], [address]. tel:[phone] [facility], [address] [address], [place], [place], [address], tel:[phone] [place] No Information Sep- 3 Bacilio Saul. . Referring Provider: Servando Bernstein, [address] [facility], [place], [address]. tel:[phone] [facility], [address] [address], [place], [address], [place] tel:[phone] [place] No Information 3 Bacilio Saul. . Referring Provider: Servando Bernstein, [address] [facility], [place], [address]. tel:[phone] [facility], [address] [address], [place], [address], [place] tel:[phone] [place] No Information 3 Bacilio Saul. . Referring Provider: Servando Bernstein, [address] [place], [address]. tel:[phone] [address], [place], [address], [place] tel:[phone] [place] No Information 3 Bacilio Saul. . Referring Provider: Servando Bernstein, [address] [facility], [place], [address]. tel:[phone] [facility], [address] [address], [place], [address], [place] tel:[phone] [place] No Information 3 Fatimah Jimenez. . Referring Provider: Servando Bernstein, [address] [place], [address]. tel:[phone] [facility], [address] [address], [place], [address], [place] tel:[phone] [place] No Information 3 Bacilio Saul. . Referring Provider: Servando Bernstein, [facility] [place], [address]. tel:[phone] [facility], [address] [address], [place], [place], [address], [place] tel:[phone] [place] No Information 3 Bacilio Saul. . Referring Provider: Servando Bernstein, [address] [place], [address]. tel:[phone] [facility] [address], [place], [place], [address], tel:[phone] [place] No Information 3 Bacilio Saul. . Referring Provider: Servando Bernstein, [address] [place], [address]. tel:[phone] [facility], [id number], [place] tel:[phone] [place] No Information 3 Bacilio Saul. . Referring Provider: Servando Bernstein, [facility] [place], [address]. tel:[phone] [facility], [id number], [place] tel:[phone] [place] No Information 3 Bacilio Saul. . Referring Provider: Servando Bernstein, [facility] [place], [address]. tel:[phone] [facility] [address], [place], [place], [address], tel:[phone] [place] No Information 3 Bacilio Saul. . Referring Provider: Servando Bernstein, [address] [facility], [place], [address]. tel:[phone] [facility] [address] [address], [place], [place], [id number], tel:[phone] [place] No Information 3 Bacilio Saul. . Referring Provider: Servando Bernstein, [address] [facility], [place], [address]. tel:[phone] [facility], [address] [facility], [place], [place], [address], [place] tel:[phone] [place] No Information 3 Bacilio Saul. . Referring Provider: Servando Bernstein, [address] [facility], [place], [address]. tel:[phone] [facility], [address] [address], [place], [place], [address], tel:[phone] [place] No Information 3 Bacilio Saul. . Referring Provider: Servando Bernstein, [address] [facility], [place], [address]. tel:[phone] [facility], [address] [place] [address], [place], [place], [address], tel:[phone] [place] No Information 3 [place], [place]. Referring Provider: Servando Bernstein, [address] [facility], [place], [address]. tel:[phone] [facility], [address] [facility], [place], [address], [place] tel:[phone] [place] No Information 2 Bacilio Saul. . Referring Provider: Servando Bernstein, [address] [facility], [place], [address]. tel:[phone] [facility] [facility], [place], [place], [address], tel:[phone] [place] No Information 2 Bacilio Mcdonald . Referring Provider: Servando Bernstein, [facility], [place], [address]. tel:[phone] [facility], [address], [place], [place], [address], [place] tel:[phone] [place] Urge incontinence 2 Titus Nicolasla. [address] [facility], [address], [place], [address], [place]. tel: [phone] Referring Provider: Servando Bernstein, [address] [facility], [place], [address]. tel:[phone] Family History Family Member Type Diagnosis Age At Onset No Information Payers Payer name Insurance type Covered alliance party ID Authoriza tion(s) Medicare [place] [id number] [facility] [id number] Social History Type Description Quantity Date Captured [...]
== END 2025-01-06 21:50 | disposition home or self-care (01) ==
PROVIDERS: Emergency Provider Emergency Medicine; PCP Family Medicine
DX: S01.01XA Laceration without foreign body of scalp, initial encounter (principal); G30.9 Alzheimer's disease, unspecified; F02.80 Dementia in other diseases classified elsewhere, unspecified severity, without behavioral disturbance, psychotic disturbance, mood disturbance, and anxiety; I10 Essential (primary) hypertension; E11.9 Type 2 diabetes mellitus without complications; E78.5 Hyperlipidemia, unspecified; K51.90 Ulcerative colitis, unspecified, without complications; K21.9 Gastro-esophageal reflux disease without esophagitis; M85.80 Other specified disorders of bone density and structure, unspecified site; Z79.899 Other long term (current) drug therapy; Z79.82 Long term (current) use of aspirin; Z79.84 Long term (current) use of oral hypoglycemic drugs; W01.0XXA Fall on same level from slipping, tripping and stumbling without subsequent striking against object, initial encounter
CPT/HCPCS: 12001; 70450; 99284

== ENCOUNTER 2025-02-21 20:04 | Inpatient (IN) | payer MEDICARE, SELFPAY ==
[2025-02-21] VITALS (20 sets, daily range): BP systolic 140–178; BP diastolic 73–105; PULSE 77–99; RESP 14–36; TEMP 36.4–36.7; O2SAT 91–100; BMI 24.7
--- NOTE | ~2025-02-21 | MR_ITS ---
EXAMINATION: MR brain/brain stem wo/w con DATE: 02/22/2025 12:43 INDICATION: Transient ischemic episode TECHNIQUE: Magnetic resonance imaging (MRI) of the brain and brainstem was performed without and with 14 mL Multihance intravenous contrast. Sequences included sagittal and axial T1-weighted SE, axial d iffusion-weighted FS SE, axial 3D SWAN, axial T2-weighted FLAIR, and axial T2-weighted FSE. Postcontr ast axial and coronal T1-weighted SE was obtained. Apparent diffusion coefficient (ADC) maps were cre ated. 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 There are no areas of restricted diffu brian to suggest acute infarction. No acute intracranial hemorrhage or abnormal intracranial mass lesi on. There are scattered areas of nonspecific increased T2-weighted signal intensity in the cerebral w byron matter, predominantly involving the deep and periventricular white matter. There are multiple sc attered foci of susceptibility artifact at the bilateral basal ganglia, thalami and bilateral cerebra l and cerebellar hemispheres consistent with sequela of chronic microhemorrhage which could relate to hypertension or amyloid angiopathy. The largest region is located at the posterior left corpus callo sum. There are no intraparenchymal signal abnormalities seen on the other pulse sequences. The ventri cles are symmetric and normal in size. There are no abnormal extra-axial fluid collections. Flow void s are seen in the cerebral arteries on the T2-weighted sequences along with contrast enhancement on t he postcontrast imaging consistent with their expected patency. No abnormally enhancing lesions on th e postcontrast imaging. Mild mucosal thickening the bilateral ethmoid sinuses. Changes of bilateral i ntraocular lens replacement. IMPRESSION: 1. 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 No acute intracranial process. 2. Numerous foci of susceptibility artifact consistent with sequela of chronic microhemorrhage in the bilateral thalami, basal ganglia, cerebral and cerebellar hemispheres which suggests sequela of eith er chronic hypertension or amyloid angiopathy. 3. Moderate periventricular predominant nonspecific white matter T2 hyperintensity consistent with ch ronic small vessel ischemic disease. Reviewed, dictated and finalized at location A. IMPRESSION: 1. 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 No acute intr acranial process. 2. Numerous foci of susceptibility artifact consistent with sequela of chronic microhemorrhage in the bilateral thalami, basal ganglia, cerebral and cerebella r hemispheres which suggests sequela of either chronic hypertension or amyloid angiopathy. 3. Moderate periventricular predominant nonspecific white matter T2 hyperintens ity consistent with chronic small vessel ischemic disease.
--- NOTE | ~2025-02-21 | CT_ITS ---
EXAMINATION: CT brain wo con DATE: 02/21/2025 20:17 INDICATION: Transient ischemic episode TECHNIQUE: Computed tomography (CT) of the head was performed without intravenous contrast. Sagittal and coronal reconstructions were performed. The mA was adjusted according to patient size. Iterative reconstruction technique was employed. The dose-length product was 605.33 mGy-cm. COMPARISON: head CT dated 01/06/2025 and 08/11/2024 FINDINGS: No acute intracranial hemorrhage, acute infarction or abnormal extra axial fluid collection. Stable a ppearance of moderate scattered white matter hypoattenuation consistent with chronic small vessel isc hemic disease. Symmetric prominence of the sulci consistent with mild age-appropriate diffuse cerebra l volume loss. Symmetric prominence of the sulci consistent with mild age-appropriate diffuse cerebra l volume loss. No mass/mass effect. Changes of bilateral intraocular lens replacement. The orbits, pa ranasal sinuses and mastoid air cells are normal. Intracranial calcified cerebral atherosclerosis is noted. IMPRESSION: 1. No acute intracranial process. 2. Age-related changes including mild diffuse volume loss and moderate scattered white matter hypoatt enuation consistent with chronic small vessel ischemic disease. Reviewed, dictated and finalized at location A. IMPRESSION: 1. No acute intracranial process. 2. Age-related changes including mild diffuse volume loss and moderate scattere d white matter hypoattenuation consistent with chronic small vessel ischemic di sease.
--- NOTE | ~2025-02-21 | CT_ITS ---
EXAMINATION: CTA BRAIN/CAROTID DATE: 02/21/2025 21:33 INDICATION: Stroke with aphasia TECHNIQUE: Computed tomographic angiography (CTA) of the head and neck was performed with 100 mL Omni paque-350 intravenous contrast. Multiplanar reconstructions and maximum intensity projection 3D-recon structions of the carotid arteries and of the intracranial arteries were created by the technologist on a separate workstation. Automated exposure control and iterative reconstruction technique were emp loyed.The dose-length product was 965.33 mGy-cm. COMPARISON: None. FINDINGS: Carotid arteries: Small amount of nonhemodynamically significant atherosclerotic plaque along the normal caliber thorac ic aorta and great vessels arising from the arch with no dissection. Left vertebral artery is mildly dominant with no stenosis along the extracranial portions of the arteries. There is atherosclerotic p laque with 10% stenosis of the right carotid bulb relative to normal distal artery lumen diameter (NA SCET criteria). There is atherosclerotic plaque with 0% stenosis of the left carotid bulb relative to normal distal artery lumen diameter. Likely benign 1.2 cm rim calcified, centrally fat attenuation n odule in the left thyroid lobe. Cervical soft tissues are otherwise unremarkable. Mild biapical pleur al-parenchymal scarring. Mild to moderate cervical spondylosis with 3 mm anterolisthesis C4 on C5. Intracranial arteries Left vertebral artery is dominant. Small amount of nonhemodynamically significant atherosclerotic kirstie que along the bilateral intracranial vertebral arteries and the bilateral carotid siphons.. There is no hemodynamically significant stenosis in the vertebral, basilar and internal carotid arteries. Both A1 and P1 segments are patent. The left P1 segment is tortuous and diminutive with majority of flow to the left posterior cerebral artery supplied via a patent large caliber left posterior commuting ar jessa. There are no aneurysms identified. Cerebral arterial arborization appears symmetric. IMPRESSION: 1. 10% stenosis of the right carotid bulb relative to normal distal artery lumen diameter (NASCET cri teria). 2. 0% stenosis of the left carotid bulb relative to normal distal artery lumen diameter. 3. Unremarkable cerebral CT angiogram with no hemodynamically significant stenosis, thrombosis or ane urysm. Reviewed, dictated and finalized at location A. IMPRESSION: 1. 10% stenosis of the right carotid bulb relative to normal distal artery lume n diameter (NASCET criteria). 2. 0% stenosis of the left carotid bulb relative to normal distal artery lumen diameter. 3. Unremarkable cerebral CT angiogram with no hemodynamically significant steno sis, thrombosis or aneurysm.
--- NOTE | ~2025-02-21 | XR_ITS ---
EXAMINATION: XR chest 1V portable DATE: 02/21/2025 21:05 INDICATION: Stroke TECHNIQUE: frontal view of the chest was obtained. COMPARISON: Chest radiograph dated 09/13/2024 FINDINGS: Unchanged mild linear discoid atelectasis/scarring in the left lower lung zone. No new airspace opaci ties, pulmonary edema, pleural effusion or pneumothorax. The cardiomediastinal silhouette is normal. Mild lumbar levocurvature with moderate spondylosis. A few unchanged old healed bilateral rib fractur es. Suggestion of a possible more recent fracture of one the anterior inferior left ribs. IMPRESSION: 1. Unchanged mild linear atelectasis/scarring at the left lower lung zone. No acute cardiopulmonary d isease. 2. Possible relatively recent fracture of one of the anterior inferior left ribs. Correlate with clin ical history and for point tenderness. Reviewed, dictated and finalized at location A. IMPRESSION: 1. Unchanged mild linear atelectasis/scarring at the left lower lung zone. No a cute cardiopulmonary disease. 2. Possible relatively recent fracture of one of the anterior inferior left rib s. Correlate with clinical history and for point tenderness.
--- NOTE | 2025-02-21 20:10 | ECG_ITS ---
Test Date: 2025-02-21 20:24:08 Measurements Intervals [place] Rate: 76 P: 52 MT: 145 QRS: 22 QRSD: 97 T: 30 QT: 353 QTc: 397 Interpretive Statements SINUS RHYTHM Electronically Signed On 02-22-2025 17:16:46 CDT by Abdullahi Jeffrey D.O
[2025-02-21 20:20] LABS: Hematocrit 44.9 % (37.0-47.0); Hemoglobin 14.2 g/dL (12.0-15.0); Immature Granulocyte Percent A 0.6 % (0-0.5); Lymphocytes Absolute Auto 2.11 K/mm3 (0.9-3.2); Mean Corpuscular HGB Conc 31.6 g/dl (32-36); Mean Corpuscular Hemoglobin 28.5 pg (26-34); Mean Corpuscular Volume 90.2 fl (80-100); Nucleated Red Blood Cells Absolute Auto 0.000 K/mm3 (0.0-0.012); Nucleated Red Blood Cells Perc 0.0 % (0.0-0.2); Platelet Count Result 293 k/mm3 (150-375); Red Blood Count 4.98 M/mm3 (4.2-5.4); White Blood Count 9.5 K/mm3 (4.5-10.0)
[2025-02-21 20:41] LABS: Alanine Aminotransferase 21 U/L (6-35); Albumin Level 4.4 g/dL (3.5-5.1); Alkaline Phosphatase 110 U/L (38-126); Anion Gap 7 mmol/L (4-12); Aspartate Amino Transferase 28 U/L (14-36); Bilirubin,Total 0.3 mg/dL (0.2-1.3); Blood Urea Nitrogen 21 mg/dL (7-17); Calcium 9.8 mg/dL (8.4-10.2); Carbon Dioxide 28 mmol/L (22-30); Chloride 99 mmol/L (98-107); Estimated CRCL calculation 40 ml/min; Estimated Glomerular Filt Rate > 60; Glucose 169 mg/dL (65-110); Potassium 4.1 mmol/L (3.4-5.0); Sodium 134 mmol/L (137-145); Total Protein 7.4 g/dL (6.3-8.2)
[2025-02-21 20:42] LABS: Add Urine Microscopic? YES; Appearance Urine Clear (Clear); Glucose Urine UA Negative (Negative); Leukocyte Esterase Ur Negative LEU/UL (Negative); Nitrate Urine Negative (Negative); Non Pathogenic Casts 0-2; Specific Grav Ur 1.009 (1.001-1.035)
[2025-02-21 20:43] LABS: INR 0.9; Prothrombin Time 12.7 Seconds (11.1-14.7)
[2025-02-21 20:44] LABS: Partial Thromboplastin Time 26.3 Seconds (22.3-36.8)
[2025-02-21 20:53] LABS: Troponin I < 0.012 ng/mL (0.000-0.034)
--- NOTE | 2025-02-21 21:32 | ED.NEUROSD ---
HPI - Neuro Symptoms/Deficit General Chief Complaint: Suspected CVA Stated Complaint: SEVERE APHASIA/CODE STROKE Time Seen by Provider: 02/21/25 20:09 Source: patient Mode of arrival: EMS Limitations: no limitations History of Present Illness HPI Narrative: 79-year-old with a history of Alzheimer's dementia, hypertension, diabetes was brought in by EMS from a memory care unit with a complains of aphasia , last seen by [facility] staff was around 5.30 pm during their rounds , pt still remained aphasic when EMS arrived , however pt upon arrival is alert , answered all the questions appropriately and no motor deficit Related Data Home Medications ?Medication ?Instructions ?Recorded ?Confirmed ?Last Taken ?Type amlodipine 5 mg tablet 5 mg PO DAILY 08/18/21 09/13/24 09/13/24 History mesalamine 0.375 gram 0.75 g PO Q12H 08/18/21 09/13/24 09/13/24 History capsule,extended release 24 hr pantoprazole 40 mg tablet,delayed 40 mg PO HS 08/18/21 09/13/24 09/13/24 History release ferrous sulfate 324 mg (65 mg 324 mg PO DAILY 06/03/23 09/13/24 09/13/24 History iron) tablet,delayed release metformin 750 mg tablet,extended 750 mg PO DAILY 06/03/23 09/13/24 09/13/24 History release 24 hr vedolizumab 300 mg IV PUSH DIRECTED 06/03/23 09/14/24 08/03/24 History aspirin 81 mg capsule 81 mg PO QAM 03/20/24 09/13/24 09/13/24 History losartan 100 mg tablet 100 mg PO HS 03/20/24 09/13/24 09/13/24 History pravastatin 40 mg tablet 80 mg PO HS 03/20/24 09/13/24 09/13/24 History rivastigmine 4.6 mg/24 hour 4.6 mg topical HS 03/20/24 09/13/24 09/13/24 History transdermal patch calcium 315 mg (as 1 tablet PO DAILY 08/11/24 09/13/24 09/13/24 History citrate)-vitamin D3 5 mcg (200 unit) tablet (Calcium Citrate + D) lamotrigine 200 mg tablet 200 mg PO Q12H 08/11/24 09/13/24 09/13/24 History brivaracetam 50 mg tablet 50 mg PO BID 09/13/24 09/14/24 09/13/24 History (Briviact) Allergies Allergy/AdvReac Type Severity Reaction Status Date / Time Penicillins Allergy Rash Verified 01/06/25 19:17 [facility] Past Medical History Medical History Dementia of the Alzheimer's type Diabetes Osteopenia Pseudogout of knee Dementia Complex partial seizures MCI (mild cognitive impairment) Deafness in right ear Gastroesophageal reflux disease Hyperlipidemia Ulcerative colitis Hypertension Surgical History Surgical History History of dilation and curettage History of hip surgery Left hip surgery. Family History Family History Mother Diabetes mellitus Hypertension Cancer Cerebrovascular accident Afib Father Cancer Social History Social History Social History: Lives in [place]. Nonsmoker. No alcohol or illicit substance use. 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 Surrogate decision maker: Aby Rliey, daughter. Code status: Full code. Smoking status: Never smoker Second hand tobacco smoke exposure: Yes Alcohol intake: never Substance use: never Substance use type: does not use Do You Feel Safe in your Home?: Yes Lack of Transportation: No Lack of Food: Never True Current Housing: I Have Housing Concerned About Future Housing: No Difficulty Paying Gas/Electric Bills: No Difficulty Paying for Meds: No Currently Unemployed: No Education: High School Diploma/GED Difficulty w/ Childcare or Family Care: No Spiritual care concerns: No Exam Narrative: GENERAL: Well-appearing, well-nourished, and in no acute distress. HEAD: Normocephalic, atraumatic. EYES: PERRLA and EOMI. ENT: Nares clear, no rhinorrhea or epistaxis. Mucous membranes moist. NECK: Supple. CHEST: Clear to auscultation. No respiratory distress. HEART: Regular rate and rhythm. No murmur heard. Normal peripheral pulses. ABDOMEN: Soft, nontender, nondistended, normal active bowel sounds. EXTREMITIES: Normal range of motion. No edema. SKIN: Warm, dry, no rash. NEURO: No focal deficits. Alert and oriented x3. PSYCH: Normal mood and affect. Course Course Emergency Course: Notified patient and her daughter was at bedside about her lab work. She is still asymptomatic agreeable with admission will consult neurology. Discussed with Dr. Hernandez and Dr Savita Shaffer . Vital Signs Vital signs: Vital Signs Pulse Rate 86 02/21/25 20:07 Respiratory Rate 16 02/21/25 20:07 Blood Pressure 178/86 H 02/21/25 20:07 Pulse Oximetry 99 02/21/25 20:07 Temperature 36.6 C 02/21/25 20:23 Pulse Rate 86 02/21/25 20:23 Respiratory Rate 20 02/21/25 20:23 Blood Pressure 178/86 H 02/21/25 20:23 Pulse Oximetry 100 02/21/25 20:23 Oxygen Delivery Room Air 02/21/25 20:23 MDM - Neuro Symptoms/Deficit Medical Records Attestation: I reviewed the patient's medical records. Lab Data Attestation: I reviewed the patient's lab results. 02/21/25 20:13 02/21/25 20:13 Labs: Lab Results 02/21/25 02/21/25 Range/Units 20:13 20:29 WBC 9.5 (4.5-10.0) K/mm3 RBC 4.98 (4.2-5.4) M/mm3 Hgb 14.2 (12.0-15.0) g/dL Hct 44.9 (37.0-47.0) % MCV 90.2 (80-100) fl MCH 28.5 (26-34) pg MCHC 31.6 L (32-36) g/dl RDW 13.7 (11.5-14.5) % Plt Count 293 (150-375) k/mm3 MPV 9.0 (7.4-10.4) fl Immature Gran % (Auto) 0.6 H (0-0.5) % Neut % (Auto) 62.9 (45.5-73.1) % Lymph % (Auto) 22.3 (18.3-44.2) % Billings % (Auto) 9.6 H (2.6-8.5) % Eos % (Auto) 4.1 (0-4.4) % Baso % (Auto) 0.5 (0.2-1.2) % Lymph # (Auto) 2.11 (0.9-3.2) K/mm3 Billings # (Auto) 0.9 H (0.1-0.6) K/mm3 Eos # (Auto) 0.4 H (0-0.3) K/mm3 Baso # (Auto) 0.1 (0.0-0.1) K/mm3 Abs Immat Gran (auto) 0.06 H (0.00-0.031) K/mm3 Absolute Neuts (auto) 6.0 (1.3-6.7) K/mm3 Absolute Nucleated RBC 0.000 (0.0-0.012) K/mm3 Nucleated RBC % 0.0 (0.0-0.2) % PT 12.7 (11.1-14.7) Seconds INR 0.9 APTT 26.3 (22.3-36.8) Seconds Sodium 134 L (137-145) mmol/L Potassium 4.1 (3.4-5.0) mmol/L Chloride 99 (98-107) mmol/L Carbon Dioxide 28 (22-30) mmol/L Anion Gap 7 (4-12) mmol/L BUN 21 H (7-17) mg/dL Creatinine 0.87 (0.7-1.0) mg/dL Estim Creat Clear Calc 40 ml/min Estimated GFR > 60 (59 - ) Glucose 169 H (65-110) mg/dL Calcium 9.8 (8.4-10.2) mg/dL Total Bilirubin 0.3 (0.2-1.3) mg/dL AST 28 (14-36) U/L ALT 21 (6-35) U/L Alkaline Phosphatase 110 (38-126) U/L Troponin I < 0.012 (0.000-0.034) ng/mL Total Protein 7.4 (6.3-8.2) g/dL Albumin 4.4 (3.5-5.1) g/dL Urine Color Yellow (Yellow) Urine Appearance Clear (Clear) Urine pH 7.0 (5.0-9.0) Ur Specific Hobson 1.009 (1.001-1.035) Urine Protein Negative (Negative) mg/dL Urine Glucose (UA) Negative (Negative) mg/dL Urine Ketones Negative (Negative) mg/dL Ur Blood (Man) 1+ H (Negative) Urine Nitrate Negative (Negative) Urine Bilirubin Negative (Negative) Urine Urobilinogen 0.2 (<2.0) mg/dL Leukocyte Esterase Rfl Negative (Negative) YAMILETH/UL Urine RBC 11-20 H (0-2) /hpf Urine WBC 0-5 (0-3) /hpf Ur Squamous Epith Cells None seen (Few) /hpf Urine Bacteria None seen /hpf Urine Casts 0-2 Imaging Data Radiologist's impression: ITS Impressions Head CT 02/21/25 20:20 IMPRESSION: 1. No acute intracranial process. 2. Age-related changes including mild diffuse volume loss and moderate scattered white matter hypoattenuation consistent with chronic small vessel ischemic disease. Chest X-Ray 02/21/25 21:13 IMPRESSION: 1. Unchanged mild linear atelectasis/scarring at the left lower lung zone. No acute cardiopulmonary disease. 2. Possible relatively recent fracture of one of the anterior inferior left ribs. Correlate with clinical history and for point tenderness. Head/Neck CTA 02/21/25 21:35 IMPRESSION: 1. 10% stenosis of the right carotid bulb relative to normal distal artery lumen diameter (NASCET criteria). 2. 0% stenosis of the left carotid bulb relative to normal distal artery lumen diameter. 3. Unremarkable cerebral CT angiogram with no hemodynamically significant stenosis, thrombosis or aneurysm. ECG Data EKG #1: ECG completion date: 02/21/25 ECG completion time: 20:24 EKG Interpretation: normal rate (76), sinus rhythm, no ectopy, non-specific ST changes and no ST changes Discharge Plan Discharge Clinical Impression: Brain TIA Patient Disposition: Still a Patient Condition: Stable Patient Language: Algerian Prescriptions: No Action amlodipine 5 mg tablet 5 mg PO DAILY pantoprazole 40 mg tablet,delayed release (DR/EC) 40 mg PO HS mesalamine 0.375 gram capsule,extended release 24hr 0.75 g PO Q12H metformin 750 mg tablet extended release 24 hr 750 mg PO DAILY vedolizumab 300 mg 300 mg IV PUSH DIRECTED Rx Instructions: Infuse 5ml every 8 weeks ferrous sulfate 324 mg (65 mg iron) tablet,delayed release (DR/EC) 324 mg PO DAILY pravastatin 40 mg tablet 80 mg PO HS losartan 100 mg tablet 100 mg PO HS rivastigmine 4.6 mg/24 hour patch 24 hour 4.6 mg topical HS aspirin 81 mg Capsule 81 mg PO QAM calcium citrate-vitamin D3 [Calcium Citrate + D] 315 mg-5 mcg (200 unit) tablet 1 tablet PO DAILY lamotrigine 200 mg tablet 200 mg PO Q12H Briviact 50 mg tablet 50 mg PO BID Follow-up/Referrals: Yelitza,Servando Bernstein MD [Primary Care Provider] - Quality Stroke Date of last known normal: 02/21/25 Time of last known normal: 17:30 Stroke Scale Stroke Scale 1: Stroke scale date:: 02/21/25 Stroke scale time:: 20:23 1a Level of consciousness: alert-0 1b Level of consciousness questions: answers both correctly-0 1c Level of consciousness commands: obeys both correctly-0 2 Best gaze: normal-0 3 Visual: no visual loss-0 4 Facial palsy: normal-0 5a Motor: left arm: no drift-0 5b Motor: right arm: no drift-0 6a Motor: left leg: no drift-0 6b Motor: right leg: no drift-0 7 Limb ataxia: absent-0 8 Sensory: normal-0 9 Best language: no aphasia-0 10 Dysarthria: normal-0 11 Extinction and inattention: no abnormality-0 Level:: 0
--- OUTSIDE RECORDS SUMMARY | 2025-02-21 22:06 | XMS_ITS | Encounter Summary ---
Author Organization [facility] Address [address] [place] [address] Care Team Providers Care Crew Truck Driver Name Role Phone Jared Abrams MD Primary Care Provider [phone] Servando Torre MD Primary Care Provider [phone] Encounter Details Date Type Department Care Team (Late Contact Info) Description 09/26/2003 Abstract [facility] Conversion , Generic Conversion, Social History [...] Department Care Team (Late Contact Info) Description 03/30/2025 2:30 PM CDT Appointment [facility] [address] [place] [address] Josué Cook MD [address] [address] documented as of this encounter Visit Diagnoses Not on filedocumented in this encounter Care Teams Crew Truck Driver Relationship Specialty Start Date End Date Jared Abrams MD PCP - General 08/28/11 07/16/22 Servando Torre MD [address] [facility] [address] [place] [address] PCP - General FAMILY PRACTICE 07/17/22 documented as of this encounter
--- OUTSIDE RECORDS SUMMARY | 2025-02-21 22:06 | XMS_ITS | Continuity of Care Document ---
Author Organization [employer] [place] Address [address] [place] [address] Phone Care Team Providers Care Advertising Account Executive Name Role Phone Saul Ribera [...] Diagnoses Date Provider Providers Copied on Encounter [facility], [id number], tel:[phone] [place] No Information 3 Bacilio Saul. . [facility], [id number], tel:[phone] [facility] No Information 3 Bacilio Saul. . Referring Provider: Servando Bernstein, [place], [address]. tel:[phone] [facility] [address], [id number], tel:[phone] [facility] No Information 3 Bacilio Salu. . Referring Provider: Servando Bernstein, [place], [address]. tel:[phone] [facility] [address], [id number], tel:[phone] [facility] Urge incontinence 3 Bacilio Saul. . Referring Provider: Servando Bernstein, [place], [address]. tel:[phone] [facility], [address] [facility] [address], [place], [place], [id number], [place] tel:[phone] [facility] No Information Franklin-1 3 Bacilio Saul. . Referring Provider: Servando Bernstein, [address] [place], [address]. tel:[phone] [facility] [address] [facility] [facility] [address], [place], [place], [id number], [place] tel:[phone] [facility] No Information Franklin-1 - 3 Bacilio Saul. . Referring Provider: Servando Bernstein, [address] [place], [address]. tel:[phone] [facility] [address] [address], [place], [place], [id number], tel:[phone] [facility] No Information Franklin-0 6 3 Bacilio Saul. . Referring Provider: Servando Bernstein, [address] [place], [address]. tel:[phone] [facility] [address] [address], [place], [place], [address], tel:[phone] [facility] No Information Franklin-0 3 Bacilio Saul. . Referring Provider: Servando Bernstein, [address] [place], [address]. tel:[phone] [facility] [address] [facility] [address], [place], [place], [id number], [place] tel:[phone] [facility] No Information Franklin-0 - 3 Bacilio Saul. . Referring Provider: Servando Bernstein, [address] [place], [address]. tel:[phone] [facility], [address] [facility] [address], [place], [place], [id number], [place] tel:[phone] [facility] No Information November- 3 Bacilio Saul. . Referring Provider: Servando Bernstein, [address] [facility], [place], [address]. tel:[phone] [facility], [address] [address], [place], [place], [id number], tel:[phone] [facility] No Information November- 3 Bacilio Saul. . Referring Provider: Servando Bernstein, [address] [facility], [place], [address]. tel:[phone] [facility], [address] [address], [place], [place], [id number], tel:[phone] [facility] No Information November- 3 Bacilio Saul. . Referring Provider: Servando Bernstein, [address] [place], [address]. tel:[phone] [facility], [address] [address], [place], [place], [address], tel:[phone] [facility] No Information 3 Bacilio Saul. . Referring Provider: Servando Bernstein, [address] [place], [address]. tel:[phone], [id number], tel:[phone] [facility] No Information November- 3 Bacilio Saul. . Referring Provider: Servando Bernstein, [address] [place], [address]. tel:[phone] [facility], [address] [address], [place], [place], [address], tel:[phone] [facility] No Information 3 Bacilio Saul. . Referring Provider: Servando Bernstein, [address] [place], [address]. tel:[phone] [facility] [address], [place], [place], [address], [place] tel:[phone] [facility] No Information May-0 9-202 3 Bacilio Saul. . Referring Provider: Servando Bernstein, [address] [place], [address]. tel:[phone] [facility] [address] [address], [place], [place], [address], [place] tel:[phone] [facility] No Information May-0 3-202 3 Bacilio Saul. . Referring Provider: Servando Bernstein, [address] [place], [address]. tel:[phone] [facility], [address] [address], [place], [place], [id number], tel:[phone] [facility] No Information May-0 2-202 3 Bacilio Saul. . Referring Provider: Servando Bernstein, [address] [place], [address]. tel:[phone] [facility], [id number], tel:[phone] [facility] No Information Apr-2 7-202 3 Bacilio Saul. . Referring Provider: Servando Bernstein, [address] [place], [address]. tel:[phone] [facility], [id number], [place] tel:[phone] [facility] Unspecified urinary incontinenceUrge incontinence Apr-2 5-202 3 Bacilio Saul. . Referring Provider: Servando Bernstein, [address] [place], [address]. tel:[phone] [facility], [address] [address], [place], [address], [place] tel:[phone] [facility] No Information Apr-2 0-202 3 Bacilio Saul. . Referring Provider: Servando Bernstein, [address] [facility], [place], [address]. tel:[phone] [facility], [address] [address], [place], [place], [address], tel:[phone] [facility] No Information Apr-1 8-202 3 Bacilio Saul. . Referring Provider: Servando Bernstein, [address] [facility], [place], [address]. tel:[phone] [facility], [address] [address], [place], [place], [address], [place] tel:[phone] [facility] No Information Apr-1 4-202 3 Bacilio Saul. . Referring Provider: Servando Bernstein, [address] [place], [address]. tel:[phone] [facility], [address] [address], [place], [address], [place] tel:[phone] [facility] No Information Apr-1 3-202 3 Bacilio Saul. . Referring Provider: Servando Bernstein, [address] [place], [address]. tel:[phone] [facility], [address], [id number], [place] tel:[phone] [facility] No Information Apr-0 6-202 3 Bacilio Saul. . Referring Provider: Servando Bernstein, [address] [place], [address]. tel:[phone] [facility] [address], [place], [address], [place] tel:[phone] [facility] No Information Apr-0 4-202 3 Bacilio Saul. . Referring Provider: Servando Bernstein, [address] [place], [address]. tel:[phone] [place] [address], [address] [address], [place], [address], [place] tel:[phone] [facility] No Information Mar-3 1-202 3 Bacilio Saul. . Referring Provider: Servando Bernstein, [address] [place], [address]. tel:[phone] [facility] [address], [place], [address], [place] tel:[phone] [facility] No Information Mar-3 0-202 3 Bacilio Saul. . Referring Provider: Servando Bernstein, [address] [place], [address]. tel:[phone] [facility] [address], [place], [place], [address], tel:[phone] [facility] No Information Mar-2 3-202 3 Bacilio Saul. . Referring Provider: Servando Bernsetin, [address] [place], [address]. tel:[phone] [facility], [id number], [place] tel:[phone] [facility] No Information Mar-2 1-202 3 Bacilio Saul. . Referring Provider: Servando Bernstein, [address] [place], [address]. tel:[phone] [facility] [address], [place], [address], [place] tel:[phone] [facility] No Information Mar-1 5- 3 Bacilio Saul. . Referring Provider: Servando Bernstein, [address] [place], [address]. tel:[phone] [facility] [address], [place], [address], [place] tel:[phone] [facility] Unspecified urinary incontinenceUnsp ecified urinary incontinence Mar-1 3-202 3 Bacilio Saul. . Referring Provider: Servando Bernstein, [address] [facility], [place], [address]. tel:[phone] [facility], [address] [address], [place], [place], [address], tel:[phone] [place] No Information Sep- 3 Bacilio Saul. . Referring Provider: Servando Bernstein, [address] [facility], [place], [address]. tel:[phone] [facility], [address] [address], [place], [place], [address], [place] tel:[phone] [place] No Information 3 Bacilio Saul. . Referring Provider: Servando Bernstein, [address] [facility], [place], [address]. tel:[phone] [facility], [address] [address], [place], [address], [place] tel:[phone] [place] No Information 3 Bacilio Saul. . Referring Provider: Servando Bernstein, [address] [place], [address]. tel:[phone] [address], [place], [address], [place] tel:[phone] [place] No Information 3 Bacilio Saul. . Referring Provider: Servando Bernstein, [address] [facility], [place], [address]. tel:[phone] [facility], [address] [address], [place], [place], [address], [place] tel:[phone] [place] No Information 3 Fatimah Jimenez. . Referring Provider: Servando Bernstein, [address] [place], [address]. tel:[phone] [facility], [address] [address], [place], [address], [place] tel:[phone] [place] No Information 3 Bacilio Saul. . Referring Provider: Servando Bernstein, [place], [address]. tel:[phone] [facility], [address] [address], [place], [place], [address], [place] tel:[phone] [place] No Information 3 Bacilio Saul. . Referring Provider: Servando Bernstein, [address] [place], [address]. tel:[phone] [facility] [address], [place], [place], [address], tel:[phone] [place] No Information 3 Bacilio Saul. . Referring Provider: Servando Bernstein, [address] [place], [address]. tel:[phone] [facility], [id number], [place] tel:[phone] [place] No Information 3 Bacilio Saul. . Referring Provider: Servando Bernstein, [place], [address]. tel:[phone] [facility], [id number], [place] tel:[phone] [place] No Information 3 Bacilio Saul. . Referring Provider: Servando Bernstein, [place], [address]. tel:[phone] [facility] [address], [place], [place], [address], tel:[phone] [place] No Information 3 Bacilio Saul. . Referring Provider: Servando Bernstein, [address] [facility], [place], [address]. tel:[phone] [facility] [address] [address], [place], [place], [address], tel:[phone] [place] No Information 3 Bacilio Saul. . Referring Provider: Servando Bernstein, [address] [facility], [place], [address]. tel:[phone] [facility], [address] [facility] [facility] [address], [place], [place], [address], [place] tel:[phone] [place] No Information 3 Bacilio Saul. . Referring Provider: Servando Bernstein, [address] [facility], [place], [address]. tel:[phone] [facility], [address] [address], [place], [place], [address], tel:[phone] [place] No Information 3 Bacilio Saul. . Referring Provider: Servando Bernstein, [address] [facility], [place], [address]. tel:[phone] [facility], [address] [place] [address], [place], [place], [address], tel:[phone] [place] No Information 3 [place], [place]. Referring Provider: Servando Bernstein, [address] [facility], [place], [address]. tel:[phone] [facility], [address] [facility] [facility] [address], [place], [place], [address], [place] tel:[phone] [place] No Information 2 Bacilio Saul. . Referring Provider: Servando Bernstein, [address] [facility], [place], [address]. tel:[phone] [facility] [facility], [place], [place], [address], tel:[phone] [place] No Information 2 Bacilio Mcdonald . Referring Provider: Servando Bernstein, [facility], [place], [address]. tel:[phone] [facility], [address], [place], [place], [address], [place] tel:[phone] [place] Urge incontinence [address] [facility], [address], [place], [address], [place]. tel: [phone] Referring Provider: Servando Bernstein, [address] [facility], [place], [address]. tel:[phone] Family History Family Member Type Diagnosis Age At Onset No Information Payers Payer name Insurance type Covered republican ID Authoriza tion(s) Medicare [place] MB [id number] [facility] [id number] Social History Type Description Quantity Date Captured [...]
--- OUTSIDE RECORDS SUMMARY | 2025-02-21 22:06 | XMS_ITS | Encounter Summary ---
Author Organization [facility] Healthcare Address [address] [place] [address] Care Team Providers Care Railroad Brakeman Name Role Phone Servando Torre MD Primary Care Provider [phone] Mariela Denton MD Unavailable [phone] Lexis Barroso OD Unavailable [phone] Adria Burleson MD Unavailable Aldo Castro MD Unavailable [phone] Josué Cook MD Unavailable Kimberly Nicolas MD Unavailable [phone] Encounter Details Date Type Department Care Team (Late st Contact Info) Description 01/25/2025 Results Follow-Up [facility] [address] [place] [address] Mara Almendarez NP [address] [place] [address] [address] [place] [address] XR Ribs Left W PA Chest 3 or More Views Social History Tobacco Use Types Packs/Day Years [...] on file 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 Gender Identity Female 04/05/2022 6:17 PM CDT Sexual Orientation Straight 04/05/2022 6: 17 PM CDT documented as of this encounter Plan of Treatment Not on file documented as of this encounter Visit Diagnoses Not on filedocumented in this encounter Care Teams Railroad Brakeman Relationship Specialty Start Date End Date Servando Torre MD [address] [address] PCP - General Family Medicine 06/19/22 Mariela Denton MD [address] [facility] [address] [place] [address] Referring Physician Gastroenterology 06/19/22 Lexis Barroso OD [address], [place] [address] [facility] 09/19/22 Adria Burleson MD [address] [facility] [address] [place] [address] Consulting Physician Neurology 09/21/24 Aldo Castro MD [address] [place] [address] Referring Physician Ophthalmology 11/01/24 GreJosué singer MD [address] [facility] [address] [place] [address] Consulting Physician Gastroenterology 11/01/24 Kimberly Nicolas MD [address] [facility] [address] [place] [address] Consulting Physician Neurology 12/21/24 documented as of this encounter
--- OUTSIDE RECORDS SUMMARY | 2025-02-21 22:06 | XMS_ITS | Encounter Summary ---
Author Organization [facility] Address [address] [place] [address] Care Team Providers Care Triage Nurse Name Role Phone Servando Torre MD Primary Care Provider [phone] Encounter Details Date Type Department Care Team (Late st Contact Info) Description 02/03/2025 Therapy Plan [facility] [address] [place] [address] Josué Cook MD [address] [place] [address] Social History Tobacco Use Types Packs/Day Years [...] Care Team (Late st Contact Info) Description 03/30/2025 2:30 PM CDT Appointment [facility] [address] [place] [address] Josué Cook MD [address] [address] documented as of this encounter Goals Goal Patient Goal Type Associated Problems Recent Progress Patient-Stated? 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
--- OUTSIDE RECORDS SUMMARY | 2025-02-21 22:07 | XMS_ITS | Clinical Summary ---
Author Organization [facility] Address [address] [place] [address] Care Team Providers Care Director Of Solutions Architecture Name Role Phone Servando Torre MD Primary Care Provider + [phone] Allergies Active Allergy Reactions Criticality Noted Date Comments Penicillins Hives 04/14/2023 Medications metFORMIN 500 MG tablet Take 500 mg by mouth 2 (two) times daily with meals. Active pravastatin 40 MG tablet Take 40 mg by mouth nightly at bedtime. Active amLODIPine 5 MG tablet Take 1.5 tablets (7.5 mg total) by mouth daily. Active metoprolol tartrate 50 [...] tests 05/20/2023 Chronic ulcerative colitis, unspecified complication ([facility]) 06/18/2022 Ulcerative pancolitis withou t complication ([facility]) 09/04/2021 Overview (09/04/2021): Added automatically from request for surgery [id number] Colitis 03/20/2020 Encounters Date Type Department Care Team Description 02/03/2025 Orders Only [facility] [address] [place] [address] Derick Martínez MD 02/03/2025 Therapy Plan [facility] [id number] [place] [id number] Josué Cook MD 02/01/2025 9:04 AM CDT - 02/01/2025 10:18 AM CDT Hospital Encounter [facility] [address] [place] [id number] Josué Cook MD Discharge Disposition: Home or Self Care (Routine Discharge) 02/01/2025 Travel 12/06/2024 1:11 PM CDT - 12/06/2024 2:09 PM CDT Hospital Encounter [facility] Surgery [id number] [place] [id number] Josué Cook MD Discharge Disposition: Home or Self Care (Routine Discharge) 12/06/2024 Travel from Last 3 Months Family History [...] Sign Reading Time Taken Comments Blood Pressure 141/69 02/01/2025 10:05 AM CDT Pulse 83 02/01/2025 10:05 AM CDT Temperature 36.8 C (98.2 F) 02/01/2025 10:05 AM CDT Respiratory Rate 18 02/01/2025 10:05 AM CDT Oxygen Saturation 95% 02/01/2025 10:05 AM CDT Inhaled Oxygen Concentration - - Weight 62.1 kg (137 lb) 12/06/2024 1:19 PM CDT Height 157.5 cm (5' 2) 04/19/2022 2:44 PM CDT Body Mass Index 25.06 04/19/2022 2:44 PM CDT Plan of Treatment Upcoming Encounters Date Type Department Care Team (Late st Contact Info) Description 03/30/2025 2:30 PM CDT Appointment [address] [address] Josué Cook MD [address] [address] Health Maintenance Due Date Last Done Comments DTaP, Tdap and Td Vaccines ( 1 - Tdap) 1964 Annual Medicare Wellness Visit 2008 RSV Immunization or 60+ Years (1 - 1-dose 75+ series) 2018 COVID-19 Vaccine (2 - Pfizer risk series) 06/20/2022 05/30/2022 PHQ-2 (Physician [facility]) 07/28/2024 Zoster Vaccines Completed 08/01/2020, 05/30/2020 Dexa Scan (General) Completed 12/12/2022, 12/12/2022 Pneumococcal Vaccine: 50+ Years Completed 03/27/2023 Meningococcal B Vaccine Aged [...] Recent Progress Patient-Stated? Author HOME TO INDEPEND[facility] Vannessa Light RN Procedures Procedure Name Priority Date/Time Associated Diagnosis Comments C-REACTIVE PROTEIN Routine 02/01/2025 9: 21 AM CDT Chronic ulcerative colitis, unspecified complication (CMS/HCC HHS/HCC) Abnormal liver function tests CBC W/DIFF AUTOMATED Routine 02/01/2025 9:21 AM CDT Chronic ulcerative colitis, unspecified complication (CMS/HCC HHS/HCC) Abnormal liver function tests COMPREHENSIVE METABOLIC PANEL Routine 02/01/2025 9:21 AM CDT Chronic ulcerative colitis, unspecified complication (CMS/HCC HHS/HCC) Abnormal liver function tests C-REACTIVE PROTEIN Routine 12/06/2024 1: 29 PM CDT Chronic ulcerative colitis, unspecified complication (CMS/HCC HHS/HCC) Abnormal liver function tests CBC W/DIFF AUTOMATED Routine 12/06/2024 1:29 PM CDT Chronic ulcerative colitis, unspecified complication (CMS/HCC HHS/HCC) Abnormal liver function tests COMPREHENSIVE METABOLIC PANEL Routine 12/06/2024 1:29 PM CDT Chronic ulcerative colitis, unspecified complication (CMS/HCC HHS/HCC) Abnormal liver function tests from Last 3 Months Results * (ABNORMAL) COMPREHENSIVE METABOLIC PANEL (02/01/2025 9:21 AM CDT) Only the most recent of2 resultswithin the time period is included. GLUCOSE 187(H) 70 - 99 MG/DL 02/01/2025 10:53 AM [facility] BUN 17 7 - 18 MG/DL 02/01/2025 10:53 AM [facility] CREATININE S/P/B 1.06(H) 0.55 - 1.02 MG/DL 02/01/2025 10:53 AM [facility] SODIUM S/P/B 142 136 - 145 MMOL/L 02/01/2025 10:53 AM [facility] POTASSIUM S/P/B 3.8 3.5 - 5.1 MMOL/L 02/01/2025 10:53 AM [facility] CHLORIDE S/P/B 102 100 - 108 MMOL/L 02/01/2025 10:53 AM [facility] CO2 29.5 21 - 32 MMOL/L 02/01/2025 10:53 AM [facility] CALCIUM S/P/B 9.4 8.5 - 10.1 MG/DL 02/01/2025 10:53 AM [facility] BILIRUBIN TOTAL S/P/B 0.4 0.2 - 1.2 MG/DL 02/01/2025 10:53 AM [facility] TOTAL PROTEIN S/P/B 7.4 6.4 - 8.2 G/DL 02/01/2025 10:53 AM [facility] ALBUMIN S/P/B 3.7 3.4 - 5.0 G/DL 02/01/2025 10:53 AM [facility] AST 13(L) 15 - 37 U/L 02/01/2025 10:53 AM [facility] ALT 26 14 - 55 U/L 02/01/2025 10:53 AM [facility] ALKALINE PHOSPHATASE S/P/B 120 50 - 136 U/L 02/01/2025 10:53 AM CDT [facility] ANION GAP 10.5 5 - 15 MMOL/L 02/01/2025 10:53 AM CDT [facility] BUN CREATININE RATIO 16.0 6 - 26 02/01/2025 10:53 AM CDT [facility] A/G RATIO 1.0 1.0 - 2.0 RATIO 02/01/2025 10:53 AM CDT [facility] GFR ESTIMATE 53(L) >90 ML/MIN/1.7 3 M2 02/01/2025 10:53 AM CDT [facility] Comment: NOTE: eGFR is not calculated for patients <18 years of age. This is an estimated GFR calculation using the new CKD EPI creatinine equation without race and so does not require a correction factor for race. This estimated GFR should not be used for calculating drug doses. 02/01/2025 9:21 AM CDT Josué Cook MD LABORATORY Final Result [facility] [address] [place] [address], [place] [phone] * C-REACTIVE PROTEIN (02/01/2025 9:21 AM CDT) Only the most recent of2 resultswithin the time period is included. C-REACTIVE PROTEIN <0.29 <0.29 mg/dL 02/01/2025 2:06 PM CDT [facility] 02/01/2025 9:21 AM CDT Josué Cook MD LABORATORY Final Result [facility] [address] [place] [address], [place] [phone] * (ABNORMAL) CBC W/DIFF AUTOMATED (02/01/2025 9:21 AM CDT) Only the most recent of2 resultswithin the time period is included. WBC 9.90 4.4 - 11.0 x10'3/uL 02/01/2025 10:20 AM CDT [facility] RBC 5.03 4.50 - 5.10 x10'6/uL 02/01/2025 10:20 AM CDT [facility] HGB 14.7 12.3 - 15.3 G/DL 02/01/2025 10:20 AM CDT [facility] HCT 45.8(H) 35.9 - 44.6 % 02/01/2025 10:20 AM CDT [facility] MCV 91.1 80.0 - 96.0 FL 02/01/2025 10:20 AM CDT [facility] MCH 29.2 25.3 - 30.9 PG 02/01/2025 10:20 AM CDT [facility] MCHC 32.1 31.0 - 34.1 G/DL 02/01/2025 10:20 AM T [facility] RDW 13.9 12.4 - 15.1 % 02/01/2025 10:20 AM CDT [facility] PLT 332 151 - 353 x10'3/uL 02/01/2025 10:20 AM CDT [facility] MPV 9.2(L) 9.6 - 12.0 FL 02/01/2025 10:20 AM T [facility] RBC MORPHOLOGY NORMAL 02/01/2025 10:20 AM CDT [facility] PLT MORPH. NORMAL 02/01/2025 10:20 AM CDT [facility] WBC MORPHOLOGY NORMAL 02/01/2025 10:20 AM CDT [facility] LYMPHOCYTES % 17.2 15.8 - 45.0 % 02/01/2025 10:20 AM CDT [facility] NEUTROPHILS % 72.2(H) 42.1 - 71.9 % 02/01/2025 10:20 AM CDT [facility] MONOCYTES % 7.4 5.7 - 12.5 % 02/01/2025 10:20 AM CDT [facility] EOSINOPHILS 2.2 0.0 - 5.6 % 02/01/2025 10:20 AM CDT [facility] BASOPHILS 0.5 0.0 - 1.3 % 02/01/2025 10:20 AM CDT [facility] ABS. NEUTROPHILS 7.15(H) 1.40 - 6.00 x10'3/uL 02/01/2025 10:20 AM CDT [facility] IMMATURE GRANS % 0.5 0.0 - 0.5 % 02/01/2025 10:20 AM CDT [facility] ABS. LYMPHOCYTES 1.70 0.80 - 4.70 x10'3/uL 02/01/2025 10:20 AM CDT [facility] 02/01/2025 9:21 AM CDT us Josué Cook MD LABORATORY Final Result [facility] [address] [place] [address], [place] [phone] from Last 3 Months Insurance MEDICARE [facility] Advance Directives * Full Code (Latest Code Status on File) Date Activated Date Inactivated Comments 03/20/2020 11:16 AM 03/23/2020 7:48 PM Care Teams Director Of Solutions Architecture Relationship Specialty Start Date End Date Servando Torre MD [address] [facility] [id number] [place] [address] PCP - General FAMILY PRACTICE 07/17/22
--- OUTSIDE RECORDS SUMMARY | 2025-02-21 22:07 | XMS_ITS | Clinical Summary ---
Author Organization [facility] Address [address] [place] [address] Care Team Providers Care Race Board Attendant Name Role Phone Servando Torre MD Primary Care Provider Mariela Denton MD Unavailable [phone] Lexis Barroso OD Unavailable [phone] Adria Burleson MD Unavailable Aldo Castro MD Unavailable Josué Cook MD Unavailable Kimberly Nicolas MD Unavailable [phone] Allergies Active Allergy Reactions Criticality Noted Date Comments Penicillins Hives High 01/30/2023 She thinks as an adult but is unsure Medications multivitamin capsule Take 1 capsule by mouth daily Active cholecalciferol (VITAMIN D-3) 2000 unit tabletIndications: Low serum vitamin D Take 1 tablet (2,000 Units total) by mouth daily Low Vitamin D level from 05/30/2022. 90 tablet 3 2 Active OneTouch Delica Plus Lancet 33 gauge miscIndications:Pr ediabetes 1 each by other route daily To check glucose with glucose monitor and strip 100 each 3 3 Active amLODIPine (NORVASC) 5 mg tablet Take 1 tablet (5 mg total) by mouth daily 90 tablet 1 3 Active ferrous sulfate ER 324 mg (65 mg iron) EC tabletIndications: Iron Deficiency Anemia Take 1 tablet (324 mg total) by mouth daily with breakfast 90 tablet 1 3 Active vedolizumab (ENTYVIO) 300 mg recon solnIndications:Ch ronic ulcerative colitis, unspecified complication (HCC) Infuse 5 mL (300 mg total) into a venous catheter every 8 (eight) weeks Infused at: [facility] ([facility] order in Epic under 'Procedures' tab). 1 each 5 3 Active metFORMIN XR (GLUCOPHAGE XR) 750 mg 24 hr tablet Take 1 tablet (750 mg total) by mouth daily with breakfast 30 tablet 11 3 Active aspirin 81 mg enteric coated tablet Take 1 tablet (81 mg total) by mouth daily 90 tablet 3 4 Active mesalamine (APRISO) 0.375 gram 24 hr capsuleIndications :Ulcerative Colitis Take 2 capsules by mouth in the morning and 2 capsules in the evening 120 capsule 5 4 Active losartan (COZAAR) 100 mg tabletIndications: Hypertension associated with diabetes (HCC) Take 1 tablet (100 mg total) by mouth nightly [address] (PROTONIX) 40 mg EC tabletIndications: Gastroesophageal reflux disease without esophagitis Take 1 tablet (40 mg total) by mouth nightly 4 Active lamoTRIgine (LaMICtal) 200 mg tablet Take 1 tablet (200 mg total) by mouth 2 (two) times a day Take one tablet in AM and 1 tablet in PM 4 Active pravastatin (PRAVACHOL) 80 mg tabletIndications: Mixed diabetic hyperlipidemia associated with type 2 diabetes mellitus (HCC),Carotid stenosis, asymptomatic, bilateral Take 1 tablet (80 mg total) by mouth nightly 30 tablet 3 4 025 Active rivastigmine (EXELON) 4.6 mg/[address] 4.6 mg on the skin daily 30 patch 6 4 025 Active amLODIPine (NORVASC) 2.5 mg tabletIndications: hypertension Take 1 tablet (2.5 mg total) by mouth daily Take with 5 mg tablet to bring total amlodipine dosage to 7.5 mg daily 30 tablet 3 5 026 Active melatonin 5 mg tablet Take 1 tablet every day by oral route at bedtime. Active brivaracetam (BRIVIACT) 50 mg tablet Take 1 tablet (50 mg total) by mouth 2 (two) times a day 60 tablet 5 5 025 Active OneTouch Ultra Test stripIndications:P rediabetes 1 each by other route daily To check blood glucose 50 each 5 Active Active Problems Problem Noted Date Diagnosed [...] epilepticus 03/17/2023 At risk for falls 03/13/2023 manager long term care (current) use of oral hypoglycemic fuentes gs [...] 05/29 Assessment & Plan (07/05/2024 3:20 PM VENDOR MANAGEMENT ASSOCIATE): A(n) yearly Medicare Annual Wellness Visit has [...] months Assessment & Plan (06/26/2023 2:02 PM VENDOR MANAGEMENT ASSOCIATE): A(n) yearly Medicare Annual Wellness Visit has [...] months Assessment & Plan (06/23/2022 3:06 PM VENDOR MANAGEMENT ASSOCIATE): A(n) initial Medicare Annual Wellness Visit has [...] (06/19/2022): Added automatically from request for surgery [id number] Ear ringing 03/03/2013 Asymmetrical sensorineural hearing loss 03/03/20 13 Stress fracture 07/07/2012 Arthralgia of hip 02/06/2011 Resolved Problems Problem Noted Date Diagnosed Date Resolved Date Hospital discharge follow-up 06/11/2023 08/07/2023 Assessment & Plan (06/11/2023 1:42 PM VENDOR MANAGEMENT ASSOCIATE): I have reviewed the hospital record, medications, [...] Encounters Date Type Department Care Team Description 02/01/2025 Orders Only [facility] Scanning, Provider 02/01/2025 Telephone [facility] [address] [facility] Advanced Medicine 12th [place] [address] [place] [address] Cara Garzon, RN Med Management - [facility] 01/26/2025 Telephone [facility] Primary Care at [address] [address] Servando Torre MD [facility] diabetic supplies 01/25/2025 Results Follow-Up [facility] at [address] [address] Mara Almendarez NP XR Ribs Left W PA Chest 3 or More Views 01/24/2025 3:45 PM CDT Ancillary Procedure [facility] Imaging at [address] [address] Rib pain on left side; Accidental fall, initial encounter 01/24/2025 3:30 PM CDT Office Visit [facility] at [address] [address] Pricilla Olguin NP Rib pain on left side (Primary Dx); Accidental fall, initial encounter 01/10/2025 Orders Only [facility] Primary Care at [address] [address] Ayan Pearson MD 12/21/2024 9:15 AM CDT Office Visit [facility] Primary Care at [address] [address] Servando Torre MD Hypertension associated with diabetes (HCC) (Primary Dx); Mixed diabetic hyperlipidemia associated with type 2 diabetes mellitus (HCC); Screening for osteoporosis; Osteopenia of both hips; Seizure (HCC) 12/11/2024 Results Follow-Up [facility] [address] [place] [address] Medicine 12th [place] [address] [place] [address] Josué Cook MD Surgical pathology 12/07/2024 1:01 PM CDT Anesthesia Event [address] [address] Luis George MD 12/07/2024 12:30 PM CDT - 12/07/2024 1:00 PM CDT Surgery [address] [address] Josué Cook MD COLON REMOVAL SNARE 12/07/2024 11:14 AM CDT - 12/07/2024 2:22 PM CDT Hospital Encounter [address] [address] Josué Cook MD Chronic ulcerative colitis, unspecified complication (HCC); Colon cancer screening Discharge Disposition: Discharge to home or self care 12/02/2024 Telephone [facility] [address] [place] [phone] Marie Laureano RN GI PROCEDURE 3 DAY PRE CALL 11/30/2024 2:45 PM CDT Office Visit [facility] Orthopedic [facility] Sports Medicine [address] [place] [address] Riri Gonzalez PA Primary osteoarthritis of both knees (Primary Dx) 11/30/2024 Telephone [facility] [address] [place] [phone] Marie Laureano RN GI PROCEDURE 7 DAY PRE CALL from Last 3 Months Immunizations Immunization Administration [...] file Legal Sex Female 9:30 AM VENDOR MANAGEMENT ASSOCIATE Gender Identity Female 04/05/2022 6:17 PM CDT Sexual Orientation Straight 04/05/2022 6: 17 PM CDT Obstetrics History Last Filed Vital Signs Vital Sign Reading Time Taken Comments Blood Pressure 153/73 01/24/2025 3:35 PM CDT Pulse 85 01/24/2025 3:35 PM CDT Temperature 36.7 C (98 F) 01/24/2025 3:35 PM CDT Respiratory Rate 20 01/24/2025 3:35 PM CDT Oxygen Saturation 95% 01/24/2025 3:35 PM CDT Inhaled Oxygen Concentration - - Weight 63 kg (138 lb 12.8 oz) 01/24/2025 3:35 PM CDT Height 157.5 cm (5' 2.01) 01/24/2025 3:35 PM CD T Body Mass Index 25.38 01/24/2025 3:35 PM CDT Plan of Treatment Health Maintenance Due Date Last Done Comments Hepatitis B Screening 1963 Covid-19 Vaccine ( season) 2024 05/30/2022, 05/18/2021, 10/20/2020, Additional history exists Osteoporosis Screening-Bone Density Scan 12/12/2024 12/12/2022, 12/12/2022 Influenza Vaccine (#1) 2025 , 06/11/2023, 05/06/2022 Foot Exam 04/01/2025 04/01/2024, 0 11/2023, 12/19/2022 Hemoglobin A1C 06/23/2025 12/21/2024, 02/2 11/2024, 07/02/2024, Additional history exists Lipid Panel 07/02/2025 07/02/2024, 0 09/2023, 09/30/2023, Additional history exists eGFR 07/02/2025 07/02/2024, 0 09/2023, 09/30/2023, Additional history exists Well Visit [...] 08/01/2020, 05/30/2020 Pneumococcal vaccine 65+ Completed 03/27/2023 Procedures Procedure Name Priority Date/Time Associated Diagnosis Comments SCAN - LABS 02/01/2025 XR RIBS LEFT W PA CHEST Schedule SHIRA, Read SHIRA (Appt Today, Awaiting Results) 01/24/2025 3:57 PM CDT Rib pain on left side Accidental fall, initial encounter CT HEAD WO CONTRAST Schedule Routine, Read Routine (OP Routine) 01/06/2025 8:48 AM CDT HM DIABETES EYE EXAM Routine 12/22/2024 8:42 [...] GLUCOSE DEVICE Routine 12/07/2024 12:53 PM CDT MA ARTHROCENTESIS ASPIR&/INJ MAJOR JT/BURSA W/O US Routine 11/30/2024 2:45 PM CDT Primary osteoarthritis of both knees ALBUMIN CREATININE RATIO, URINE Routine 09/21/2024 10:05 AM VENDOR MANAGEMENT ASSOCIATE Hypertension associated with diabetes (HCC) EGFR Routine 07/02/2024 10:20 AM VENDOR MANAGEMENT ASSOCIATE Weakness generalized LIPID PANEL Routine 07/02/2024 10:20 AM VENDOR MANAGEMENT ASSOCIATE Hypertension associated with diabetes (HCC) DEXA AXIAL SKELETON BONE DENSITY 1 OR MORE SITES Schedule Routine, Read Routine (OP Routine) 12/12/2022 2:33 PM CDT Screening for osteoporosis Asymptomatic menopausal state from Last 3 Months or Most Recently Relevant to Health Maintenance Results * SCAN - LABS (02/01/2025) us Provider Scanning Edited Result - Final * XR Ribs Left W PA Chest 3 or More Views (01/24/2025 3:57 PM CDT) Anatomical Region Laterality Modality Rib, Chest Left Digital Radiogra phy 01/25/2025 5:21 AM CDT Narrative 01/25/2025 5:24 AM CDT EXAM DESCRIPTION: XR RIBS LEFT W PA CHEST 3 OR MORE VIEWS REASON FOR STUDY: accidental fall Pt complains of posterior lower left rib pain after a fall last night. No surgery to heart, lungs, or chest. Non-smoker. Prior bilateral rib fractures. TECHNIQUE: Two views left ribs and frontal view chest COMPARISON: 10/12/2024 FINDINGS: Healing fractures left 3rd and 4th ribs posteriorly. Irregularities left lateral 6th and 7th ribs may indicate healing fractures. Irregularity left lateral 9th and 10th ribs suggest acute fractures. Band like density left base unchanged may indicate scarring or persistent atelectasis. No marked pleural thickening, contusion or pneumothorax. Right lung is well expanded as well. IMPRESSION: 1. Acute fractures left lateral 9th and 10th ribs. 2. Healing fractures left 3rd, 4th, 6th and 7th ribs. 3. No pneumothorax or contusion. THIS IS AN ELECTRONICALLY VERIFIED FINAL REPORT 01/25/2025 5:24 AM - Electronically signed by Ramon Macias M.D. RB T: Report ID: [id number] Reading Location: [id number] Procedure Note Ramon Macias MD - 01/25/2025 EXAM DESCRIPTION: XR RIBS LEFT W PA CHEST 3 OR MORE VIEWS REASON FOR STUDY: accidental fall Pt complains of posterior lower left rib pain after a fall last night. No surgery to heart, lungs, or chest. Non-smoker. Prior bilateral ribfractures. TECHNIQUE: Two views left ribs and frontal view chest COMPARISON: 10/12/2024 FINDINGS: Healing fractures left 3rd and 4th ribs posteriorly. Irregularities left lateral 6th and 7th ribs may indicate healingfractures. Irregularity left lateral 9th and 10th ribs suggest acute fractures. Band like density left base unchanged may indicate scarring or persistent atelectasis. No marked pleural thickening, contusion or pneumothorax. Right lung is well expanded as well. IMPRESSION: 1. Acute fractures left lateral 9th and 10th ribs. 2. Healing fractures left 3rd, 4th, 6th and 7th ribs. 3. No pneumothorax or contusion. THIS IS AN ELECTRONICALLY VERIFIED FINAL REPORT 01/25/2025 5:24 AM - Electronically signed by Ramon Macias M.D. RB T: Report ID: [id number] Reading Location: [id number] Pricilla Olguin NP IMG XR PROCEDURES Final Result * CT Head WO Contrast (01/06/2025 8:48 AM CDT) Anatomical Region Laterality Modality Head and Neck N/A Computed Tomogra phy Ayan Pearson MD IMG CT PROCEDURES Final Result * DIABETES EYE EXAM (12/22/2024 8:42 AM CDT) SCRIBED DIABETIC DILATED EYE EXAM Normal Lexis Meier OD HEALTH MAINTENANCE F inal Result * (ABNORMAL) POCT hemoglobin A1c (12/21/2024 9:55 AM CDT) Hemoglobin A1C, POC 7.0(A) 4.0 - 5.6 % Blood 12/21/2024 9:55 AM CDT Servando Torre MD POINT OF CARE TEST ORDERABL ES Final Result * Surgical pathology (12/07/2024 1:29 PM CDT) Tissue (Polyp(s), colon/colorectal, esophageal, gastric) 12/07/2024 1:29 PM CDT Narrative PATHOLOGY [facility] - 12/08/2024 12:42 PM CDT EPIC results best viewed via link to PDF [facility] Dena Mobley [facility] [place] [address] Note to Patients: This report may contain [...] Gender: F : 1945 (Age: 79) Address: [address] [place] [phone] Hospital #: [id number] Taken:12/07/2024 Received:12/07/2024 Reported: 12/08/2024 Patient Type: [facility] Service: Gastro Location: Physician(s): Clare Russell M.D. Diagnosis: Large bowel, sigmoid colon, polyp, polypectomy/biopsy - Inflammatory polyp /12/08/2024 12:42 By this signature, I attest that [...] Surgical Pathology and Flow Cytometry Departments at [facility] as part of an ongoing vice president quality assurance program and in compliance with federally mandated [...] Surgical Pathology and Flow Cytometry Departments of [facility]. It has not been cleared or approved by the U. S. Food and Drug Administration. IMAGES AND SCANNED DOCUMENTS, IF INCLUDED, ONLY VIEWABLE IN PDF VERSION OF REPORT Josué Cook MD LAB PATHOLOGY ORDERABL ES Final Result PATHOLOGY [facility] 3rd Floor TONYA Meneses [phone] * Colonoscopy (12/07/2024 1:12 PM CDT) Anatomical Region Laterality Modality Other Narrative Procedure Note Josué Cook MD - 12/07/2024 1:12 PM CDT [facility] ENDOSCOPY [facility] Patient Name: Radha Allen Procedure Date: 12/07/2024 1:12 PM Date of : 1945 Admit Type: Outpatient Age: 79 Gender: Female Attending MD: Josué Cook M.D. Room: [facility] ENDOSCOPY ROOM 8 Note Status: Finalized [...] The scope was passed under direct vision.The [id number] endoscope was introduced through the anus [...] POCT ORDERABLES - DEVICE Final Result AILEEN [facility] Department [place] [address] * MA ARTHROCENTESIS ASPIR&/INJ MAJOR JT/BURSA W/O US (11/30/2024 [...] the procedure well with no immediate complications Result [facility] Riri [facility]/BEDSIDE ORDER [place] Final Result * Albumin Creatinine Ratio, Urine (09/21/2024 10:05 AM VENDOR MANAGEMENT ASSOCIATE) Albumin Ur <12.0 mg/L Comment: Interpretive Data No reference range established. Current interpretive data was last revised 2018. Creatinine Ur 16.3 mg/dL AILEEN Comment: Interpretive Data No reference range established. Current interpretive data was last revised 2018. Albumin Creatinine Ratio, Ur See Comment 1 - 29 AILEEN Comment:Unable to calculate Urine 09/21/2024 10:0 5 AM VENDOR MANAGEMENT ASSOCIATE 09/21/2024 10:55 PM VENDOR MANAGEMENT ASSOCIATE Servando Torre MD LAB URINE ORDERABLES Final Result Performing Organization Address [facility] de Phone Number AILEEN [phone] [place] [address] * eGFR (07/02/2024 10:20 AM VENDOR MANAGEMENT ASSOCIATE) eGFR 66 >=60 mL/min/1. 73 m2 Comment: [...] reviewed 2021. Blood 07/02/2024 10:2 0 AM VENDOR MANAGEMENT ASSOCIATE 07/02/2024 5:35 PM VENDOR MANAGEMENT ASSOCIATE Kimberly Nicolas MD LAB BLOOD ORDERABLES Final Resu lt Performing Organization Address City/[facility] Co de Phone Number AILEEN [phone] [place] [address] * (ABNORMAL) Lipid panel (07/02/2024 10:20 AM VENDOR MANAGEMENT ASSOCIATE) Cholesterol 190 30 - 199 mg/dL Comment: [...] revised on 2018. Chol/HDL ratio 4 AILEEN Blood 07/02/2024 10:2 0 AM VENDOR MANAGEMENT ASSOCIATE 07/02/2024 5:00 PM VENDOR MANAGEMENT ASSOCIATE us Servando Torre MD LAB BLOOD ORDERABLES Final Result Performing Organization Address City/State/ZIP Co md Phone Number AILEEN [phone] Department [place] [address] * Dexa Axial Skeleton Bone Density 1 or 2 Site (12/12/2022 2:33 PM CDT) Anatomical Region Laterality Modality Body N/A Radiographic Keyanna ging Narrative 12/12/2022 3:00 PM CDT Patient Name: Radha Allen Date of : 1945 Date of scan: 12/12/2022 Bone mineral density was performed on a [employer] Coach Discovery Densitometer. Based on machine cross-calibration and [...] by the International Society of Clinical Densitometry. [id number] Servando Torre MD IMG DXA PROCEDURES Final Re sult from Last 3 Months or Most Recently Relevant to Health Maintenance Insurance MEDICARE [facility] MEDICARE SUPPLEMENT MEDICARE [facility] MEDICARE SUPPLEMENT MEDICARE [facility] Advance Directives For more information, please contact: [phone] * Full Code (Latest Code Status on [...] 9:30 AM 11/29/2022 3:28 PM Care Teams Race Board Attendant Relationship Specialty Start Date End Date Servando Torre MD [address] [facility] [place] [address] [place] [address] PCP - General Family Medicine 06/19/22 Mariela Denton MD [address] [facility] [address] [place] [address] Referring Physician Gastroenterology 06/19/22 Lexis Barroso OD [address] [place] [address] Monument Setter Helper 09/19/22 Adria Burleson MD [id number] [place] [address] Consulting Physician Neurology 09/21/24 Aldo Castro MD [address] [place] [address] Referring Physician Ophthalmology 11/01/24 Josué Cook MD [address] [facility] [address] [place] [address] Consulting Physician Gastroenterology 11/01/24 Kimberly Nicoals MD [address] [facility] [address] [place] [address] Consulting Physician Neurology 12/21/24
--- OUTSIDE RECORDS SUMMARY | 2025-02-21 22:07 | XMS_ITS | Encounter Summary ---
Author Organization [facility] Address [address] [place] [address] Care Team Providers Care Tobacco Sweeper Name Role Phone Servando Torre MD Primary Care Provider + [phone] Encounter Details Date Type Department Care Team (Late st Contact Info) Description 08/19/2023 Therapy Plan [facility] [address] [place] [address] Josué Cook MD [address] [place] [address] Social History Tobacco Use Types Packs/Day Years [...] Info) Description 03/30/2025 2:30 PM CDT Appointment [facility] [address] [place] [address] Josué Cook MD [address] [address] documented as of this encounter Goals Goal Patient Goal Type Associated Problems Recent Progress Patient-Stated? Author HOME TO [facility]DEP[facility]ENT [facility]IV[facility] General No Vannessa Blackwell RN documented as of this encounter Visit Diagnoses Diagnosis Abnormal liver function tests- Primary Other abnormal blood chemistry Chronic ulcerative colitis, unspecified complication ([facility]/HCC [facility]/HCC) documented in this encounter Additional Health Concerns Assessment Noted Time PHQ-9 Depression Total Score: 0 07/06/20 21 4:06 PM CONTROL CLERK REPAIRS documented as of this encounter Care Teams Tobacco Sweeper Relationship Specialty Start Date End Date Servando Torre MD [address] [place] [address] [address] [place] [address] PCP - General FAMILY PRACTICE 07/17/22 documented as of this encounter
--- OUTSIDE RECORDS SUMMARY | 2025-02-21 22:07 | XMS_ITS | Referral Summary ---
Author Organization [facility] Address [address] [place] [address] Care Team Providers Care Silver Chaser Name Role Phone Servando Torre MD Primary Care Provider [phone] Mariela Denton MD Unavailable [phone] Lexis Barroso OD Unavailable [phone] Adria Burleson MD Unavailable Aldo Castro MD Unavailable Josué Cook MD Unavailable Kimberly Nicolas MD Unavailable [phone] Encounters Date Type Department Care Team Description 02/01/2025 Orders Only [facility] Scanning, Provider 02/01/2025 Telephone [facility] Gastroenterology [address] [facility] 12th [place] [address] [place] [address] Cara Garzon, ELMO Med Management - Entyvio renewal 01/26/2025 Telephone [facility] Primary Care at [address] [address] Servando Torre MD [facility] diabetic supplies 01/25/2025 Results Follow-Up [facility] at [address] [address] Mara Almendarez NP XR Ribs Left W PA Chest 3 or More Views 01/24/2025 3:45 PM CDT Ancillary Procedure [facility] at [address] [address] Rib pain on left side; Accidental fall, initial encounter 01/24/2025 3:30 PM CDT Office Visit [facility] at [address] [address] Pricilla Olguin NP Rib pain on left side (Primary Dx); Accidental fall, initial encounter 01/10/2025 Orders Only [facility] at [address] [address] Ayan Pearson MD 12/21/2024 9:15 AM CDT Office Visit [facility] at [address] [address] Servando Torre MD Hypertension associated with diabetes (HCC) (Primary Dx); Mixed diabetic hyperlipidemia associated with type 2 diabetes mellitus (HCC); Screening for osteoporosis; Osteopenia of both hips; Seizure (HCC) 12/11/2024 Results Follow-Up [facility] Gastroenterology [address] [place] [address] Advanced Medicine 12th [place] [address] [place] [address] Josué Cook MD Surgical pathology 12/07/2024 12:30 PM CDT - 12/07/2024 1:00 PM CDT Surgery [facility] [address] [place] [address] [place] [address] Josué Cook MD COLON REMOVAL SNARE 12/07/2024 1:01 PM CDT Anesthesia Event [facility] Disease [address] [address] Luis George MD 12/07/2024 11:14 AM CDT - 12/07/2024 2:22 PM CDT Hospital Encounter [facility] [address] [place] [address] Josué Cook MD Chronic ulcerative colitis, unspecified complication (HCC); Colon cancer screening Discharge Disposition: Discharge to home or self care 12/02/2024 Telephone [facility] Specialty Services [address] [place] [address] Marie Laureano RN GI PROCEDURE 3 DAY PRE CALL 11/30/2024 Telephone [facility] Specialty Services [facility] [place] [address] Marie Laureano RN GI PROCEDURE 7 DAY PRE CALL 11/30/2024 2:45 PM CDT Office Visit [facility] Orthopedic and Sports Medicine [address] [place] [address] Riri Gonzalez PA Primary osteoarthritis of both knees (Primary Dx) from Last 3 Months Allergies [...] 03/17/2023 At risk for falls 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 [...] 05/29 Assessment & Plan (07/05/2024 3:20 PM FRENCH WEAVER): A(n) yearly Medicare Annual Wellness Visit has [...] months Assessment & Plan (06/26/2023 2:02 PM FRENCH WEAVER): A(n) yearly Medicare Annual Wellness Visit has [...] months Assessment & Plan (06/23/2022 3:06 PM FRENCH WEAVER): A(n) initial Medicare Annual Wellness Visit has [...] (06/19/2022): Added automatically from request for surgery [id number] Ear ringing 03/03/2013 Asymmetrical sensorineural hearing loss 03/03/20 13 Stress fracture 07/07/2012 Arthralgia of hip 02/06/2011 Resolved Problems Problem Noted Date Diagnosed Date Resolved Date Hospital discharge follow-up 06/11/2023 08/07/2023 Assessment & Plan (06/11/2023 1:42 PM FRENCH WEAVER): I have reviewed the hospital record, medications, [...] on file Legal Sex Female 9:30 AM FRENCH WEAVER Gender Identity Female 04/05/2022 6:17 PM [...] 01/24/2025 3:35 PM CDT Plan of Treatment Not on file [...] GLUCOSE DEVICE Routine 12/07/2024 12:53 PM CDT HI ARTHROCENTESIS ASPIR&/INJ MAJOR JT/BURSA W/O US Routine 11/30/2024 2:45 PM CDT Primary osteoarthritis of both knees ALBUMIN CREATININE RATIO, URINE Routine 09/21/2024 10:05 AM FRENCH WEAVER Hypertension associated with diabetes (HCC) EGFR Routine 07/02/2024 10:20 AM FRENCH WEAVER Weakness generalized LIPID PANEL Routine 07/02/2024 10:20 AM FRENCH WEAVER Hypertension associated with diabetes (HCC) DEXA AXIAL [...] 5:24 AM - Electronically signed by Ramon DAMON T: Report ID: [id number] Reading Location: [id number] Procedure Note Ramon Macias MD - 01/25/2025 [...] Ramon Macias M.D. RB T: Report ID: [id number] Reading Location: [place] [address] Pricilla Olguin NP IMG XR PROCEDURES Final [...] gastric) 12/07/2024 1:29 PM CDT Narrative PATHOLOGY [facility] - 12/08/2024 12:42 PM CDT EPIC results best viewed via link to PDF [facility] [place] [address] Note to Patients: This report may contain [...] Gender: F : 1945 (Age: 79) Address: [address] [place], [place] [address] Hospital #: [id number] Taken:12/07/2024 Received:12/07/2024 Reported: 12/08/2024 Patient Type: [facility] Service: Gastro Location: Physician(s): Clare [...] Surgical Pathology and Flow Cytometry Departments at [facility] as part of an ongoing manager quality compliance program and in compliance with federally mandated [...] Surgical Pathology and Flow Cytometry Departments of [facility]. It has not been cleared or approved by the U. S. Food and Drug Administration. IMAGES AND SCANNED DOCUMENTS, IF INCLUDED, ONLY VIEWABLE IN PDF VERSION OF REPORT Josué Cook MD LAB PATHOLOGY ORDERABL ES Final Result PATHOLOGY [facility] 3rd Floor [place], [place] [phone] * Colonoscopy (12/07/2024 1:12 PM CDT) Anatomical Region Laterality Modality Other Narrative Procedure Note Josué Cook MD - 12/07/2024 1:12 PM CDT GI ENDOSCOPY [facility] Patient Name: Radha Allen Procedure Date: 12/07/2024 1:12 PM Date of : 1945 Admit Type: Outpatient Age: 79 Gender: Female Attending MD: Josué Cook M.D. Room: [facility] ENDOSCOPY ROOM 8 Note Status: Finalized [...] The scope was passed under direct vision.The [id number] endoscope was introduced through the anus [...] 0 Note Initiated On: 12/07/2024 1:12 PM Josué Cook MD ENDOSCOPY PROCEDURES F inal Result * POCT glucose (12/07/2024 12:53 PM CDT) Glucose, POC 97 70 - 199 mg/dL Blood 12/07/2024 12:5 3 PM CDT 12/07/2024 12:53 PM CDT Josué Cook MD LAB POCT ORDERABLES - DEVICE Final Result [facility] CRAIG [facility] Department [place] [address] * HI ARTHROCENTESIS ASPIR&/INJ MAJOR JT/BURSA W/O US (11/30/2024 2:45 PM CDT) Narrative Riri Gonzalez PA - 11/30/2024 2:45 PM CDT Riri Gonzalez PA 11/30/2024 3:11 PM Large Joint (Hip, Knee, Shoulder) Injection: bilateral knee Performed by: Riri Gonzalez PA Authorized by: Rrii Gonzalez PA Large Joint Injection/Aspiration: Consent Given [...] Albumin Creatinine Ratio, Urine (09/21/2024 10:05 AM FRENCH WEAVER) Albumin Ur <12.0 mg/L Comment: Interpretive Data No reference range established. Current interpretive data was last revised 2018. Creatinine Ur 16.3 mg/dL AILEEN MATTHEW Comment: Interpretive Data No reference range established. Current interpretive data was last revised 2018. Albumin Creatinine Ratio, Ur See Comment 1 - 29 AILEEN Comment:Unable to calculate Urine 09/21/2024 10:0 5 AM FRENCH WEAVER 09/21/2024 10:55 PM FRENCH WEAVER Servando Torre MD LAB URINE ORDERABLES Final Result [facility]EN MATTHEW [address] Department [place] [address] * eGFR (07/02/2024 10:20 AM FRENCH WEAVER) eGFR 66 >=60 mL/min/1. 73 m2 Comment: [...] reviewed 2021. Blood 07/02/2024 10:2 0 AM FRENCH WEAVER 07/02/2024 5:35 PM FRENCH WEAVER us Kimberly Nicolas MD LAB BLOOD ORDERABLES Final Resu lt [facility]LEEN MATTHEW [address] Department [place] [address] * (ABNORMAL) Lipid panel (07/02/2024 10:20 AM FRENCH WEAVER) Cholesterol 190 30 - 199 mg/dL Comment: [...] 4 AILEEN Blood 07/02/2024 10:2 0 AM FRENCH WEAVER 07/02/2024 5:00 PM FRENCH WEAVER us Servando Torre MD LAB BLOOD ORDERABLES Final Result Performing Organization Address City/State/ZIP Co sc Phone Number AILEEN [address] [place] [address] * Dexa Axial Skeleton Bone Density 1 or 2 Site (12/12/2022 2:33 PM CDT) Anatomical Region Laterality Modality Body N/A Radiographic Keyanna ging Narrative 12/12/2022 3:00 PM CDT Patient Name: Radha Allen Date of : 1945 Date of scan: 12/12/2022 Bone mineral density was performed on a Hologic Discovery Densitometer. Based on machine cross-calibration and [...] by the International Society of Clinical Densitometry. [id number] Servando Torre MD IMG DXA PROCEDURES Final Re sult from Last 3 Months or Most Recently Relevant to Health Maintenance Insurance MEDICARE [facility] MEDICARE SUPPLEMENT MEDICARE [facility] MEDICARE SUPPLEMENT MEDICARE [facility] Advance Directives For more information, please contact: [phone] * Full Code (Latest Code Status on [...] 9:30 AM 11/29/2022 3:28 PM Care Teams Silver Chaser Relationship Specialty Start Date End Date Servando Torre MD [address] [facility] [address] [place] [address] PCP - General Family Medicine 06/19/22 Mariela Denton MD [address] [place] [address] Referring Physician Gastroenterology 06/19/22 Lexis Barroso OD [address], [place] [address] Instructional Support Services Director 09/19/22 Adria Burleson MD [address] [facility] [address] [place] [address] Consulting Physician Neurology 09/21/24 Aldo Castro MD [address] [place] [address] Referring Physician Ophthalmology 11/01/24 Josué Cook MD [address] [facility] [address] [place] [address] Consulting Physician Gastroenterology 11/01/24 Kimberly Nicolas MD [address] [facility] [address] [place] [address] Consulting Physician Neurology 12/21/24
--- OUTSIDE RECORDS SUMMARY | 2025-02-21 22:07 | XMS_ITS | Encounter Summary ---
Author Organization [facility] Address [address] [place] [address] Care Team Providers Care Net Mobile Developer Name Role Phone Servando Torre MD Primary Care Provider [phone] Encounter Details Date Type Department Care Team (Late st Contact Info) Description 05/01/2023 Therapy Plan [facility] One Day Services [address] [place] [address] Josué Cook MD [address] [place] [address] Social History Tobacco Use Types Packs/Day Years [...] Info) Description 03/30/2025 2:30 PM CDT Appointment [facility] [address] [place] [address] Josué Cook MD [address] [address] documented as of this encounter Goals Goal Patient Goal Type Associated Problems Recent Progress Patient-Stated? 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
--- OUTSIDE RECORDS SUMMARY | 2025-02-21 22:08 | XMS_ITS | Encounter Summary ---
Author Organization [facility] Address [address] [place] [address] Care Team Providers Care Management Department Chair Name Role Phone Jared Abrams MD Primary Care Provider [phone] Servando Torre MD Primary Care Provider [phone] Encounter Details Date Type Department Care Team (Late st Contact Info) Description 06/18/2022 Therapy Plan [facility] One Day Services [address] [place] [address] Mariela Denton MD [facility] [address] [place] [address] Social History Tobacco Use Types Packs/Day Years [...] Encounters Date Type Department Care Team (Late [facility]) Description 03/30/2025 2:30 PM CDT Appointment [facility] [address] [place] [address] Josué Cook MD [address] [address] documented as of this encounter Goals Goal Patient Goal Type Associated Problems Recent Progress Patient-Stated? 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
--- OUTSIDE RECORDS SUMMARY | 2025-02-21 22:08 | XMS_ITS | Data Portability ---
Author Organization [facility] Address [address] [address] [place] [address] Care Team Providers Care Ski Production Supervisor Name Role Phone ISABELLE JOSEPH Nurse Practitioner Unavailable BILLIE SANDOVAL Primary Care Provider [phone] NAHOMY BONNER Team Foreman Unavailable Assessment Encounter Date Assessment Date Assessment [...] 2 falls since last MD visit Next Heat Treat Inspector Follow-Up: 12/07/24 Next MD/MS ACCESS DATABASE DEVELOPER Visit Scheduled: NA (as needed) Duration of Encounter(hours, minutes): 58 minutes leonel Not available 10/26/2024 10:49:06 01/12/2025 01/12/2025 Care Goals Reviewed During this Visit Goal 1: PT will have less agitation and aggression at night Description: CG and grandaughter will try not to tell PT what to do, and just do them. Granddaughter will tell PT that she wants to spend time with her, instead of telling her she is taking care of her or helping her. Progress: Not Started Support or education provided this visit:CN provided tips and education Action Steps/Tasks: NA Barriers or Notes: familiar with routine Domains & Interventions Addressed this Encounter For each applicable item, pet care associate provided screening, support, or follow-up related to the domain. ( ) Crisis Prevention & Management ( ) Medication Monitoring ( ) Safety Assessment or Reinforcement ( ) Behavioral Symptom Management (X ) Caregiver Support & Well-Being ( ) Advance Care Planning or Decision Making ( ) Community Resources, Referrals, or Education ( ) Transitional Care or Post-Acute Support ( ) End-of-Life or Palliative Care Planning (X ) Routine Check-In/Monitori ng Optional notes on domains addressed: Follow-Up Plan Thelma of visits: Every 12 weeks Next visit scheduled for: 03/17/25 Planned focus for next visit: Caregiver well-being Pending tasks/follow-up items: NA Staff Time Spent Delivering Care Direct Patient-Facing time: hours, 40 minutes Non-Patient Facing time: hours, 30 minutes Updated By [employer] as User: [email or web address] at 01/12/2025, 14:39:57 [facility] elizabeth Not available 01/12/2025 11:30:35 Plan of Treatment Reminders Order Date Submit Date Provider Last Modified By Organization Details Last Modified Time Details Appointments Care Manageme nt Follow Up 30 2024 09:30A M Nahomy Bonner Heat Treat Inspector Not available Not available Not available Lab None recorded . Referral None recorded . Procedures None recorded . Surgeries None recorded . Imaging None recorded . Medication Orders None recorded . Patient TargetsNo targets recorded. Patient Instructions Encounter Date Encounter Id Patient Instructions Last Modified By Organization Details Last Modified Time 10/12/2024 [id number] collateral interview* Not available 10/14/2024 15:43:57 functional assessment screening* [...] management* BRITTANY Not available 10/26/2024 10:38:33 10/26/2024 [id number] Areas of Need/Visit notes: - Lisa is an 79 yo female with mild vascular dementia. She is living at [facility] in [place]. She needs help with meals, meds, and showers, and she is capable of self care. Daughter and 2 granddaughters rotate staying overnight to provide evening shower, getting into bed, and morning care. There are also cameras in apt for falls. - She is somewhat active with activities/sociali zation within [facility] community; child nutrition director helps with encouraging/escort ing. - She uses a walker but is unsteady and has tendency to fall often. - Lisa exhibits some challenging behaviors, such as agitation and occasional aggressive behavior toward family (scratching, squeezing). - Family is currently looking into [employer] and similar services to find independent caregivers to provide as-needed overnight respite care. They expressed interest in receiving assistance finding other options for respite agencies, as well as resources to help with managing behaviors. leonel Not available 10/26/2024 10:46:15 Reason for Referral None Reported. Results Created Date Observation Date Name Description Value Unit Range Abnormal Flag Note LastModifiedBy Organization Detail LastModifiedTime 01/13/20 25 01/12/2025 chron ic care manag ement and care plann ing* have you had any recent ER visits since your last [facility] appointment? Yes Not Available Not Available 01/12/2025 10:49:19 01/13/20 25 01/12/2025 chron ic care manag ement and care plann ing* if yes, please describe the ER visit: Had a fall and has 3 staple s in her head Not Available Not Available 10:49:19 01/13/20 25 01/12/2025 chron ic care manag ement and care plann ing* has there been A significant health event/change in baseline level of function? No Not Available Not Available 10:49:19 01/13/20 25 01/12/2025 chron ic care manag ement and care plann ing* if yes, please describe the health event/change in baseline level of function: NA Not Available Not Available 10:49:19 01/13/20 25 01/12/2025 chron ic care manag ement and care plann ing* has there been A change in caregiver status? No Not Available Not Available 12/26 10:49:19 01/13/20 25 01/12/2025 chron ic care manag ement and care plann ing* if yes, please describe the change in caregiver status: NA Not Available Not Available 12/26 10:49:19 01/13/20 25 01/12/2025 chron ic care manag ement and care plann ing* any changes to PT medications, adverse side effects or trouble remembering to take any medications? No Not Available Not Available 01/12/2025 10:49:19 01/13/20 25 01/12/2025 chron ic care manag ement and care plann ing* if yes, please describe the change(s): NA Not Available Not Available 0 01/12/2025 10:49:19 10/27/19 25 10/26/2024 colla borat ander care manag ement * safety assessment checklist (sac) Not Available Not Available 07/2024 10:40:09 10/27/19 25 10/26/2024 colla borat ander care manag ement * (sac) has the patient fallen recently? Yes Not Available Not Available 10:40:10/27/19 25 10/26/2024 colla borat ander care manag ement * (sac) does the patient seem unsteady on their feet? Yes Not Available Not Available 10/26/2024 10:40:10/27/19 [...] or others? Yes Not Available Not Available 10/26/2024 10:40:10/27/19 25 10/26/2024 colla borat ander care manag ement * (sac) are there working smoke detectors and fire extinguisher s in the home? Yes Not Available Not Available 07/2024 10:40:10/27/19 25 10/26/2024 colla borat ander care manag ement * (sac) do you have any concerns about the patient's cooking or eating habits? No Not Available Not Available 07/2024 10:40:10/27/19 25 10/26/2024 colla borat ander care manag ement * (sac) have you noticed any burned pans or other signs of issues with the stove or other home appliances? No Not Available Not Available 10/26/2024 10:40:10/27/19 25 10/26/2024 colla borat ander care manag ement * (sac) do you feel comfortable leaving the person home alone? Yes Not Available Not Available 07/2024 10:40:09 10/27/19 25 10/26/2024 colla borat ander care manag ement * (sac) are there concerns about safety in the home? Yes Not Available Not Available 10/26/2024 10:40:09 10/27/19 25 10/26/2024 colla borat ander care manag ement * (sac) do you ever notice that there are too many or not enough pills at the end of the month? No Not Available Not Available 07/2024 10:40:09 10/27/19 25 10/26/2024 colla borat ander care manag ement * (sac) how confident are you that the patient IS taking them directed? Brunilda michele Not Available Not Available 10:40:09 10/27/19 25 10/26/2024 colla borat ander care manag ement * (sac) how IS the patient doing with taking their medications prescribed? Always on time Not Available Not Available 10:40:09 10/27/19 25 10/26/2024 colla borat ander care manag ement * (sac) IS the patient taking medications prescribed? Yes Not Available Not Available 10/26/2024 10:40:09 [...] * (sac) IS the patient A good customer service driver? Not applic able Not Available Not [...] managing finances? Yes Not Available Not Available 10:40:09 10/27/19 25 10/26/2024 colla borat ander care manag ement * (sac) are you confident that the patient IS getting to appointments ? Yes Not Available Not Available 07/2024 10:40:09 [...] all the time. how stressed are you? Lennya saey stress ed Not Available Not Available 10:38:29 [...] 5+ Not Available Not Available 10/26/2024 10:38:29 04/01/20 25 10/26/2024 mleva worthington care manag ement * (cp) do you live with the patient? No Not Available Not Available 10/26/2024 10:38:29 10/12/19 25 [facility] * burden interview 50 0-88 Burde n: moder ate to sever e Not Available Not Available 10/11/2024 19:47:18 10/12/19 25 10/11/20[facility] * (burden interview) overall, how burdened do you feel in caring for your relative? Quite a bit Not Available Not Available 19:47:18 10/12/19 25 10/11/20[facility] * (burden interview) do you feel you could do A better job in caring for your relative? Quite Freque ntly Not Available Not Available 19:47:18 10/12/19 25 10/11/20[facility] * (burden interview) do you feel you should BE doing more for your relative? Someti mes Not Available Not Available 19:47:18 10/12/19 25 10/11/20[facility] * (burden interview) do you feel uncertain about what to do about your relative? Quite Freque ntly Not Available Not Available 19:47:18 10/12/19 25 10/11/20[facility] * (burden interview) do you wish you could just leave the care of your relative to someone else? Rarely Not Available Not Available 09/25 19:47:18 10/12/19 25 10/11/2024 [facility] chronic care nurse * (burden interview) do you feel that you have lost control of your life since your relative?S illness? Quite Freque ntly Not Available Not Available 19:47:18 10/12/19 25 10/11/2024 [facility] chronic care nurse * (burden interview) do you feel that you will BE unable to take care of your relative for much longer? Rarely Not Available Not Available 10/11/2024 19:47:18 10/12/19 25 10/11/2024 [facility] non[facility] d chronic care nurse * (burden interview) do you feel that you don't have enough money to care for your relative, in addition to the rest of your expenses? Rarely Not Available Not Available 19:47:18 10/12/19 25 10/11/2024 [facility] non[facility] chronic care nurse * (burden interview) do you feel that your relative seems to expect you to take care of him/her, if you were the only one he/she could depend on? Quite Freque ntly Not Available Not Available 19:47:18 10/12/19 25 10/11/2024 [facility] non[facility] d chronic care nurse * (burden interview) do you feel uncomfortabl e about having friends over, because of your relative? Rarely Not Available Not Available 19:47:18 10/12/19 25 10/11/2024 [facility] non[facility] chronic care nurse * (burden interview) do you feel that your social life has suffered because you are caring for your relative? Quite Freque ntly Not Available Not Available 19:47:18 10/12/19 25 10/11/2024 [facility] chronic care nurse * (burden interview) do you feel that you don?T have much privacy you would like because of your relative? Quite Freque ntly Not Available Not Available 19:47:18 10/12/19 25 10/11/2024 [facility] non[facility] d chronic care nurse * (burden interview) do you feel that your health has suffered because of your involvement with your relative? Someti mes Not Available Not Available 19:47:18 10/12/19 25 10/11/2024 [facility] non[facility] chronic care nurse * (burden interview) do you feel strained when you are around your relative? Someti mes Not Available Not Available 19:47:18 10/12/19 25 10/11/2024 [facility] non[facility] chronic care nurse * (burden interview) do you feel your relative IS dependent upon you? Nearly Always Not Available Not Available 19:47:18 10/12/19 25 10/11/2024 [facility] non[facility] chronic care nurse * (burden interview) are you afraid what the future holds for your relative? Quite Freque ntly Not Available Not Available 19:47:18 10/12/19 25 10/11/2024 [facility] non[facility] chronic care nurse * (burden interview) do you feel that your relative currently affects your relationship s with other family members or friends in A negative way? Someti mes Not Available Not Available 19:47:18 10/12/19 25 10/11/2024 [facility] non-[facility] d chronic care nurse * (burden interview) do you feel angry when you are around the relative? Someti mes Not Available Not Available 19:47:18 10/12/19 25 10/11/2024 [facility] non[facility] chronic care nurse * (burden interview) do you feel embarrassed over your relative?S behavior? Rarely Not Available Not Available 19:47:18 10/12/19 25 10/11/2024 [facility] non[facility] chronic care nurse * (burden interview) do you feel stressed between caring for your relative and trying to meet other responsibili ties for your family or work? Quite Freque ntly Not Available Not Available 19:47:18 10/12/19 25 10/11/2024 [facility] non[facility] d chronic care nurse * (burden interview) do you feel that because of the time you spend with your relative that you don?T have enough time for yourself? Someti mes Not Available Not Available 19:47:18 10/12/19 25 10/11/2024 [facility] non-[facility] k[facility] d chronic care nurse * (burden interview) do you feel that [...] / 1 poor Not Available [facility] [place] [address], [place], [address], 10/10/2024 22:24:57 10/13/19 25 10/12/2024 PROMI S scale v1.2 - globa l healt h* 2. in general, would you say your quality of life IS: 4 5 excell ent / 4 very good / 3 good / 2 fair / 1 poor Not Available [facility] [address], [place], [address], 10/10/2024 22:24:57 10/13/19 25 10/12/2024 PROMI S scale v1.2 - globa l healt h* 3. in general, how would you rate your physical health? 3 5 excell ent / 4 very good / 3 good / 2 fair / 1 poor Not Available [facility] [place] [address], [place], [address], 10/10/2024 22:24:57 10/13/19 25 10/12/2024 PROMI S scale v1.2 - globa l healt h* 4. in general, how would you rate your mental health, including your mood and your ability to think? 2 5 excell ent / 4 very good / 3 good / 2 fair / 1 poor Not Available [facility] [place] [address], [place], [address], 10/10/2024 22:24:57 10/13/19 25 10/12/2024 PROMI S scale v1.2 - globa l healt h* 5. in general, how would you rate your satisfaction with your social activities and relationship s? 3 5 excell ent / 4 very good / 3 good / 2 fair / 1 poor Not Available [facility] [place] [address], [place], [address], 10/10/2024 22:24:57 10/13/19 25 10/12/2024 PROMI S [...] / 1 poor Not Available [facility] [address] [address], [place], [address], 10/10/2024 22:24:57 10/13/19 25 10/12/2024 PROMI S scale v1.2 - globa l healt h* 7. to what extent are you able to carry out your everyday physical activities such walking, climbing stairs, carrying groceries, or moving A chair? 2 5 comple tely / 4 mostly / 3 modera tely / 2 A little / 1 not at all Not Available [facility] [place] [address] [address], [place], [address], 10/10/2024 22:24:57 10/13/19 25 10/12/2024 PROMI S scale v1.2 - globa l healt h* 8. how often have you been bothered by emotional problems such feeling anxious, depressed or irritable? 3 5 never / 4 rarely / 3 someti mes / 2 often / 1 always Not Available [facility] [address], [place], [address], 10/10/2024 22:24:57 10/13/19 25 10/12/2024 PROMI S scale v1.2 - globa l healt h* 9. how would you rate your fatigue on average? 3 5 none / 4 mild / 3 modera te / 2 severe / 1 very severe Not Available [facility] [address] [address], [place], [address], 10/10/2024 22:24:57 10/13/19 25 10/12/2024 PROMI S scale v1.2 - globa l healt h* 10. how would you rate your pain on average? 3 0 no pain / 1 / 2 / 3 / 4 / 5 / 6 / 7 / 8 / 9 / 10 worst pain imagin able Not Available [facility] [address], [place], [address], 10/10/2024 22:24:57 10/13/19 25 10/12/2024 asses sment and care plann ing for patie nt with cogni tive impai rment * A. Ability to Use Telephone (1) Dials a few well-k nown number s Not Available [facility] [address], [place], [address], 10/10/2024 22:24:57 10/13/19 25 10/12/2024 asses sment and care plann ing for patie nt with cogni tive impai rment * B. Shopping (0) Needs to be accomp anied on any shoppi ng trip Not Available [facility] [address], [place], [address], 10/10/2024 22:24:57 10/13/19 25 10/12/2024 asses sment and care plann ing for patie nt with cogni tive impai rment * C. Food Preparation (0) Needs to have meals prepar ed and served Not Available [facility] [address], [place], [address], 10/10/2024 22:24:57 10/13/19 25 10/12/2024 asses sment and care plann ing for patie nt with cogni tive impai rment * D. Housekeeping (1) Perfor ms light daily tasks but cannot mainta in accept able level of cleanl iness Not Available [facility] [address] [address], [place], [address], 10/10/2024 22:24:57 10/13/19 25 10/12/2024 asses sment and care plann ing for patie nt with cogni tive impai rment * E. Laundry (0) All laundr y must be done by others Not Available [facility] [address] [address], [place], [address], 10/10/2024 22:24:57 10/13/19 25 10/12/2024 asses sment and care plann ing for patie nt with cogni tive impai rment * F. Mode of Transportati on (0) Travel limite d to taxi or automo bile with assist yolie of anothe r Not Available [facility] [address] [address], [place], [address], 10/10/2024 22:24:57 10/13/19 25 10/12/2024 asses sment and care plann ing for patie nt with cogni tive impai rment * G. Responsibili ty for Own Medications (0) Is not capabl e of dispen sing own medica tion Not Available [facility] [address] [address], [place], [address], 10/10/2024 22:24:57 10/13/19 25 10/12/2024 asses sment and care plann ing for patie nt with cogni tive impai rment * H. Ability to Handle Finances (0) Incapa ble of handli ng money Not Available [facility] [place] [address] [address], [place], [address], 10/10/2024 22:24:57 10/13/19 25 10/12/2024 asses sment and care plann ing for patie nt with cogni tive impai rment * Total Score 2 Not Available [facility] [address] [address], [place], [address], 10/10/2024 22:24:57 10/14/19 25 10/13/2024 chron ic care manag ement and care plann ing* Have you had any recent ER visits since your last [facility] appointment? No Not Available [facility] [address] [address], [place], [address], 10/10/2024 22:24:58 10/14/19 25 10/13/2024 chron ic care manag ement and care plann ing* Has there been a significant health event/change in baseline level of function? No Not Available [facility] [address] [address], [place], [address], 10/10/2024 22:24:58 10/14/19 25 10/13/2024 chron ic care manag ement and care plann ing* Has there been a change in caregiver status? No Not Available [facility] [address] [address], [place], [address], 10/10/2024 22:24:58 10/14/19 25 10/13/2024 chron ic care manag ement and care plann ing* Any changes to pt medications, adverse side effects or trouble remembering to take any medications? No Not Available [facility] [address] [address], [place], [address], 10/10/2024 22:24:58 10/14/19 25 10/13/2024 atten ding physi carla attes tatio n/exa mined * Results from: Initia wero assess ment Not Available [facility] [address] [address], [place], [address], 10/10/2024 22:24:58 10/14/19 25 10/13/2024 atten ding physi carla attes tatio n/exa mined * If initial assessment, is the patient an existing patient of the practice or a new patient? New Not Available [facility] [address] [address], [place], [address], 10/10/2024 22:24:58 10/14/19 25 10/13/2024 atten ding physi carla attes tatio n/exa mined * If initial assessment, provide patient referral source to [facility]: Referr ed by a charlie esposito organi zaraghu Not Available [facility] [address] [address], [place], [address], 10/10/2024 22:24:58 10/14/19 25 10/13/2024 atten ding physi carla attes tatio n/exa mined * Patient is not a long-term half-way resident or enrolled in Hospice True Not Available [facility] [address] [address], [place], [address], 10/10/2024 22:24:58 10/14/19 25 10/13/2024 atten ding physi carla attes tatio n/exa mined * Clinical Attestation Yes, I receiv ed a albina head report of a docume nted wilfrido ia diagno sis Not Available [facility] [address] [address], [place], [address], 10/10/2024 22:24:58 10/14/19 25 10/13/2024 healt micah silva acy asses sment * Care Program Name GUIDE Not Available [facility] [address], [place], [address], 10/10/2024 22:24:57 10/14/19 25 10/13/2024 conchita silva acy asses sment * PT Consents to Care Program Enrollment Yes Not Available [facility] [address], [place], [address], 10/10/2024 22:24:57 10/14/19 25 10/13/2024 funct ional asses sment scree ingrid* (1) normal aging / no deflictis whatsoever 1 Not Available [facility] [address], [place], [address], 10/10/2024 22:24:57 10/14/19 25 10/13/2024 funct ional asses sment scree ingrid* (2) possible mild cognitive impairment / subjective functional deficit 2 Not Available [facility] [address], [place], [address], 10/10/2024 22:24:57 10/14/19 25 10/13/2024 funct ional asses sment scree ingrid* (3) mild cognitive impairment / objective functional deficit interferes with A person's most complex tasks 3 Not Available [facility] [place] [address], [place], [address], 10/10/2024 22:24:57 10/14/19 25 10/13/2024 funct ional asses sment scree ingrid* (4) mild dementia / iadls become affected, such bill paying, cooking, cleaning, traveling 4 4 Not Available [facility] [address], [place], [address], 10/10/2024 22:24:57 10/14/19 25 10/13/2024 funct ional asses sment scree ingrid* (5) moderate dementia needs help selecting proper attire 5 Not Available [facility] [address] [address], [place], [address], 10/10/2024 22:24:57 10/14/19 25 10/13/2024 funct ional asses sment scree ingrid* (6A) moderately severe dementia / needs help putting on clothes 6A Not Available [facility] [address] [address], [place], [address], 10/10/2024 22:24:57 10/14/19 25 10/13/2024 funct ional asses sment scree ingrid* (6B) moderately severe dementia / needs help bathing 6B Not Available [facility] [address] [address], [place], [address], 10/10/2024 22:24:57 10/14/19 25 10/13/2024 funct ional asses sment scree ingrid* (6C) moderately severe / dementia needs help toileting 6C Not Available [facility] [address] [address], [place], [address], 10/10/2024 22:24:57 10/14/19 25 10/13/2024 funct ional asses sment scree ingrid* (6D) moderately severe dementia / urinary incontinence 6D Not Available [facility] [address] [address], [place], [address], 10/10/2024 22:24:57 10/14/19 25 10/13/2024 funct ional asses sment scree ignrid* (6E) moderately severe dementia / fecal incontinence 6E Not Available [facility] [place] [address], [place], [address], 10/10/2024 22:24:57 10/14/19 25 10/13/2024 funct ional asses sment scree ingrid* (7A) severe dementia / speaks 5-6 words during day 7A Not Available [facility] [address] [address], [place], [address], 10/10/2024 22:24:57 10/14/19 25 10/13/2024 funct ional asses sment scree ingrid* (7B) severe dementia / speaks only 1 word clearly 7B Not Available [facility] [address] [address], [place], [address], 10/10/2024 22:24:57 10/14/19 25 10/13/2024 funct ional asses sment scree ingrid* (7C) severe dementia / can no longer walk 7C Not Available [facility] [address] [address], [place], [address], 10/10/2024 22:24:57 10/14/19 25 10/13/2024 funct ional asses sment scree ingrid* (7D) severe dementia / can no longer sit up 7D Not Available [facility] [address] [address], [place], [address], 10/10/2024 22:24:57 10/14/19 25 10/13/2024 funct ional asses sment scree ingrid* (7E) severe dementia / can no longer smile 7E Not Available [facility] [address] [address], [place], [address], 10/10/2024 22:24:57 10/14/19 25 10/13/2024 funct ional asses sment scree ingrid* (7F) severe dementia / can no longer hold up head 7F Not Available [facility] [address] [address], [place], [address], 10/10/2024 22:24:57 10/14/19 25 10/13/2024 funct ional asselayne vasquezg* - Not Available [facility] [address] [address], [place], [address], 10/10/2024 22:24:57 10/14/19 25 10/13/2024 funct ional asses smryne scredidi ingrid* score 4 Not Available [facility] [address] [address], [place], [address], 10/10/2024 22:24:57 10/14/19 25 10/13/2024 colla teral inter view* Do you have a Medical power of Field Support Technician? Yes Not Available [facility] [address] [address], [place], [address], 10/10/2024 22:24:56 10/14/19 25 10/13/2024 colla teral inter view* Do you have a Durable power of patent prosecution attorney (financial)? Unknow n Not Available [facility] [address] [address], [place], [address], 10/10/2024 22:24:56 10/14/19 25 10/13/2024 colla teral inter view* Do you have a POLST, living will, or similar document? Yes Not Available [facility] [address] [address], [place], [address], 10/10/2024 22:24:56 10/14/19 25 10/13/2024 colla teral inter view* Would you be interested in exploring this further in a future visit? Yes Not Available [facility] [address] [address], [place], [address], 10/10/2024 22:24:56 10/14/19 25 10/13/2024 colla teral inter view* What brings you rosy or purpose? 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 Enjoys her grandk ids, doing things with them and daught er and family . Apprec iates all that her family does for her. Enjoys her spiritism and Friday school . Loves visito rs. Not Available [facility] [address] [address], [place], [address], 10/10/2024 22:24:56 10/14/19 25 10/13/2024 colla teral [...] fall risk and agitat ion. Not Available [facility] [address] [address], [place], [address], 10/10/2024 22:24:56 10/14/19 25 10/13/2024 colla teral inter view* What matters most to you and your family? family and conver sation with new friend sduydave sheyla safe Not Available [facility] [address] [address], [place], [address], 10/10/2024 22:24:56 10/15/19 25 10/14/2024 medic ation discr epanc y tool* Was medication reconciliati on and review completed using BEERS Criteria? Yes Not Available [facility] [address] [address], [place], [address], 10/10/2024 22:24:58 10/15/19 25 10/14/2024 medic ation discr epanc y tool* If meds were reviewed with BEERS criteria, were high-risk meds or interactions identified? Yes Not Available [facility] [address] [address], [place], [address], 10/10/2024 22:24:58 10/15/19 25 10/14/2024 medic ation discr epanc y tool* Were any changes recommended for medications including prescribing or de-prescribi ng? Yes Not Available [facility] [address] [address], [place], [address], 10/10/2024 22:24:58 10/15/19 25 10/14/2024 medic ation discr epanc y tool* Is the patient currently taking medications appropriatel y as prescribed? Yes Not Available [facility] [address] [address], [place], [address], 10/10/2024 22:24:58 10/27/19 25 10/26/2024 careg iver profi le* I know where to get the services I need. Strong ly agree (5) Not Available [facility] [address] [address], [place], [address], 10/26/2024 10:43:01 10/27/19 25 10/26/2024 careg iver profi le* I have people I can turn to when I need help with my problems and stress. Agree (4) Not Available [facility] [place] [address], [place], [address], 10/26/2024 10:43:01 10/27/19 25 10/26/2024 careg iver profi le* I feel confident that I can manage future caregiver challenges. Neutra l (3) Not Available [facility] [address] [address], [place], [address], 10/26/2024 10:43:01 10/27/19 25 10/26/2024 careg megan eastman* I feel confident that I can manage (name of the person with dementia) s changes in behavior. Neutra l (3) Not Available [facility] [address] [address], [place], [address], 10/26/2024 10:43:01 10/27/19 25 10/26/2024 careg megan eastman* Total Score 15 Not Available [facility] [address] [address], [place], [address], 10/26/2024 10:43:01 10/27/19 25 10/26/2024 chron ic care manag ement and care plann ing* Have you had any recent ER visits since your last [facility] appointment? No Not Available [facility] [address] [address], [place], [address], 10/26/2024 10:41:48 10/27/19 25 10/26/2024 chron ic care manag ement and care plann ing* If yes, please describe the ER visit: NA Not Available [facility] [address] [address], [place], [address], 10/26/2024 10:41:48 10/27/19 25 10/26/2024 chron ic care manag ement and care plann ing* Has there been a significant health event/change in baseline level of function? Yes Not Available [facility] [address] [address], [place], [address], 10/26/2024 10:41:48 10/27/19 25 10/26/2024 chron ic care manag ement and care plann ing* If yes, please describe the health event/change in baseline level of function: Fractu red ribs due to 2 falls in the last 2 weeks Not Available [facility] [address] [address], [place], [address], 10/26/2024 10:41:48 10/27/19 25 10/26/2024 chron ic care manag ement and care plann ing* Has there been a change in caregiver status? No Not Available [facility] [address] [address], [place], [address], 10/26/2024 10:41:48 10/27/19 25 10/26/2024 chron ic care manag ement and care plann ing* If yes, please describe the change in caregiver status: NA Not Available [facility] [address] [address], [place], [address], 10/26/2024 10:41:48 10/27/19 25 10/26/2024 chron ic care manag ement and care plann ing* Any changes to pt medications, adverse side effects or trouble remembering to take any medications? No Not Available [facility] [address] [address], [place], [address], 10/26/2024 10:41:48 10/27/19 25 10/26/2024 chron ic care manag ement and care plann ing* If yes, please describe the change(s): NA Not Available [facility] [address] [address], [place], [address], 10/26/2024 10:41:48 Result Notes None recorded. Problems Name Problem SNOMED Code Status Onset Date Resolution Date Notes Provider Name and Address Organization Details Recorded Time Memory impairment 146658988 Active 025 Nahomy Ha [address] [facility] [address] [address], [place], [address] [place] [address] - [facility] 15:54:13 Vascular dementia 994419133 Active 025 Isabelle Joseph MD [address], [facility] [address], [facility] 22:46:34 Problem Notes None recorded. 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 Procedure Notes None recorded. Medical Equipment None Reported. Allergies Allergen ID Allergen Name Allergen Category Reaction Reaction Severity Criticality Documentation Date Start Date Code Code System Note Provider Name and Address Organization Details Recorded Time 2856 Product containin g penicilli n (product) medicatio n hives Not available Not available 10/10/2024 46135 8001 SNOMED Isabelle Joseph MD [address], [facility] [address], [facility] 22:48:30 Medications Name Sig Start Date [...] Social History Question Answer Notes LastModified by Organization Details LastModified Time Tobacco Smoking Status Never Smoker Not Available [facility] 01/12/2025 10:47:49 Are You Blind Or Do You Have Difficulty Seeing? Yes Detached Retina In Her Right Eye [id number] Information not available 01/12/2025 Are You Deaf Or Do You Have Serious Difficulty Hearing? 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 No [email or web address] Information not available 01/12/2025 Are There Any Guns Present In Your Home? No [email or web address] Information not available 01/12/2025 Where Do You Live? Apartment LONG-TERM [id number] Information not available 01/12/2025 Do You Manage Your Own Medications No Information not available 10/22/2024 How Do You Organize Your Medications LONG-TERM Administers Information not available 10/22/2024 Do You Have An Assigned Guardian? No Information not available 10/22/2024 Do You Have An Unpaid/informal Caregiver? Yes Information not available 10/22/2024 Does The Patient Have Any Psychosocial Support In Place? Such As Family, Friends, Home Health, Neighbors, Other Connections, Or Spiritual Beliefs? Yes Family Support System; [employer] [email or web address] Information not available 10/22/2024 Do You Have A Paid/formal Caregiver? Yes On Occasion Will Use People From [employer] Information not available 10/22/2024 Are There Any Open Or Active APS Or Legal Cases? No Information not available 10/22/2024 Does The Patient Or Caregiver Express Any Concerns About Falls Or Fall Risks? Yes Information not available 10/22/2024 Has The Patient Had Any Recent Falls? Yes Information not available 10/22/2024 Does The Patient Receive VA Benefits? No Information not available 10/22/2024 How Often Do You Feel Lonely Or Isolated From Those Around You? Never Information not available 10/22/2024 Last Updated By: Updated By [employer] As User: [email or web address] 01/12/2025, 14:47:48 [facility] [id number] Information not available 01/12/2025 Is There A Backup Caregiver In Case Of An Emergency Or If The Primary Caregiver Is Unavailable? (add Name Of Individual To Note) Yes [email or web address] Information not available 01/12/2025 Does The Patient And Caregiver Have A Plan If A Natural Disaster Or Other Serious Events Were To Occur? Yes [email or web address] Information not available 01/12/2025 Do You Have A Living Will? No [email or web address] Information not available 01/12/2025 Is The Patient Still Driving? No [email or web address] Information not available 01/12/2025 Do You Have Medical Orders For Life Sustaining Treatment (iPOLST/MOLST/P OLST)? No [email or web address] Information not available 01/12/2025 Wandering: Has The Patient Ever Gotten Lost Or Disoriented? No [email or web address] Information not available 01/12/2025 Household Accidents: Has The Patient Had Any Accidents Or Close Calls At Home (Ex. Flood, Fire, Poisoning, Food Prep, Etc)? No [email or web address] Information not available 01/12/2025 Who Do You Live With? Lives Alone [email or web address] Information not available 01/12/2025 Alternate CG 1 Contact Information Gerald, Granddaughter [email or web address] Information not available 01/12/2025 Alternate CG 1 Name & Relationship To PT NA [email or web address] Information not available 01/12/2025 Alternate CG 2 Contact Information NA [email or web address] Information not available 01/12/2025 Alternate CG 2 Name & Relationship To PT NA [email or web address] Information not available 01/12/2025 How Long Have You Lived There? Since June 2023 [email or web address] Information not available 01/12/2025 Do You Have A Medical Power Of Field Support Technician? Yes [email or web address] Information not available 01/12/2025 Do You Have Any Pets? No [email or web address] Information not available 01/12/2025 What Is Your Relationship Status? [email or web address] Information not available 01/12/2025 Are There Any Smokers In Your House? No Information not available 10/22/2024 Sex: Female Functional Status Question Answer Note LastModified by Organizat ion Details LastModified Time Do you use any illicit or recreational drugs? No [email or web address] Information not available 01/12/2025 What is your level of alcohol consumption? None [email or web address] Information not available 01/12/2025 Are you able to walk? YESASSIST [email or web address] Information not available 01/12/2025 Mental Status None recorded. Family History Relationship [...] SNOMED-CT Code Diagnosis ICD10 Code Diagnosis Note [id number] Isabelle Joseph MD [facility] [address] [address] [place] [address] 10/12/2024 09:30:14 01/14/2025 04:17:45 Vascular dementia 129178082 F01.50 79 yo female with mild vascular [...] in supporting your mother/gra ndmother! We at [facility] look forward to being part of her clinical team! Let us work on continuing to have her be physically , socially and cognitivel y engaged! In addition, cognitive stimulatio n therapy may be an option to explore in the future.2) You will be connecting with your Heat Treat Inspector, Svetlana Araiza , on 10/26 at 8:30 [...] and you can reach out to my claim review medical director Madhavi for assistance with this. I will look forward to following up with you all in 4 months. 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 [id number] [facility]iza [facility] [address] [facility] [address] [address] [place] [address] 10/26/2024 09:20:51 10/26/2024 10:49:42 [address] Nahomy Bonner [facility] [address] [facility] [address] [address] [place] [address] 01/12/2025 10:09:49 01/12/2025 11:31:37 Health Concerns Section Related Observation LastModified by Organization Detai ls LastModified Time None Recorded Concern Status LastModified by Organization Details LastModified Time None Recorded Advance Directives Directive None Recorded Payers Insurance Date Sequence Insurance Name Policy Number Policy Philip Covered Member ID Philip Member ID Guarantor Name 12/27/2024 1 [place] Lisa Allen [id number] Lisa Allen 01/09/2025 2 [place] [id number] Lisa Allen [id number] Lisa Allen 01/03/2025 MED[place]ARE [id number] Lisa Allen [id number] Lisa Allen OBGyn Episode No OBEpisode recorded.
[2025-02-21] MEDS: ASPIRIN 81 MG CHEWABLE TABLET 324 MG PO (22:42)
--- NOTE | 2025-02-21 23:34 | ADMGEN ---
This patient, Lisa Allen, was admitted to 2 Medical Room 257-01. Patient/family oriented to hospital policies and general routines including ID bracelet, bed and alarms, visiting hours, pain management, procedures, bathroom and other care routines, personal items, smoking policy, room service/diet, and visiting hours. Information on how to activate the Rapid Response Team has been discussed. Patient/Family are encouraged to report perceived risks to care and to ask questions if they do not understand what they are told or what they should do.
[2025-02-22] VITALS (10 sets, daily range): BP systolic 145–161; BP diastolic 66–88; PULSE 63–94; RESP 14–20; TEMP 36.5–37; O2SAT 92–98
--- NOTE | 2025-02-22 08:54 | P.HP_ITS ---
H&P: HPI History of Present Illness Date/Time: 02/22/25 08:54 Chief Complaint: Problems with speech Narrative: Pt is a 79 year old female with a history of seizures,dementia, HTN, DM who presents to the ED for expressive aphasia. Pt is a poor historian and is unsure why she is here and cannot remember how she got here. She request that I speak to her daughter, Serenity. Per EMR and daughter- Pt was seen by the [facility] facility staff who noticed she was not speaking correctly. Her words were jumbled and she was unable to hold a conversation so she was sent to the ED. Daughter states pt has a history of seizures and this is how it presents. She states that usually sounds like garbled words and lasts a few minutes and then he is somewhat confused after and then recovers to baseline. She also has seizures that she becomes unresponsive and does not speak but tracks with her eyes. In July she had a tonic clonic seizure. She was seen in the EMU at [place] and her medications were changed. Her new medication that was started is Briviact. She currently sees Dr. Anthony at [phone] and next appointment is May 19. No other neurological symptoms were observed. Pt has no complaints and specifically denies pain, shortness of breath, chest pain, nausea, vomiting, diarrhea but does feel little constipated. Her last bowel movement was this morning. She did have a fall about a month ago which her her left shoulder and she thinks her ribs but overall is feeling well. I confirmed that Aby is her POA and patient is a DNI. Aby is going to bring paperwork and her briviact to the hospital since it is non-formulary. Review of Systems Review of Systems: All systems reviewed & are unremarkable except as noted in HPI and below PMFSH Past Medical History Medical History Dementia of the Alzheimer's type Diabetes Osteopenia Pseudogout of knee Dementia Complex partial seizures MCI (mild cognitive impairment) Deafness in right ear Gastroesophageal reflux disease Hyperlipidemia Ulcerative colitis Hypertension Surgical History Surgical History History of dilation and curettage History of hip surgery Left hip surgery. Family History Family History Mother Diabetes mellitus Hypertension Cancer Cerebrovascular accident Afib Father Cancer Social History Social History Social History: Lives in [place]. Nonsmoker. No alcohol or illicit substance use. 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 Surrogate decision maker: Aby Riley, daughter. Code status: Full code. Smoking status: Never smoker Second hand tobacco smoke exposure: Yes Alcohol intake: never Substance use: never Substance use type: does not use Do You Feel Safe in your Home?: Yes Lack of Transportation: No Lack of Food: Never True Current Housing: I Have Housing Concerned About Future Housing: No Difficulty Paying Gas/Electric Bills: No Difficulty Paying for Meds: No Currently Unemployed: No Education: Bachelor's Degree Difficulty w/ Childcare or Family Care: No Spiritual care concerns: No Meds Home Medications and Allergies Home Medications ?Medication ?Instructions ?Recorded ?Confirmed ?Type amlodipine 5 mg tablet See Rx Instructions PO DAILY 08/18/21 02/21/25 History mesalamine 0.375 gram 0.75 g PO Q12H 08/18/21 02/21/25 History capsule,extended release 24 hr pantoprazole 40 mg tablet,delayed 40 mg PO HS 08/18/21 02/21/25 History release ferrous sulfate 324 mg (65 mg 324 mg PO DAILY 06/03/23 02/21/25 History iron) tablet,delayed release metformin 750 mg tablet,extended 750 mg PO DAILY 06/03/23 02/21/25 History release 24 hr vedolizumab 300 mg IV PUSH DIRECTED 06/03/23 02/21/25 History aspirin 81 mg capsule 81 mg PO QAM 03/20/24 02/21/25 History losartan 100 mg tablet 100 mg PO HS 03/20/24 02/21/25 History pravastatin 40 mg tablet 80 mg PO HS 03/20/24 02/21/25 History rivastigmine 4.6 mg/24 hour 4.6 mg topical HS 03/20/24 02/21/25 History transdermal patch calcium 315 mg (as 1 tablet PO DAILY 08/11/24 02/21/25 History citrate)-vitamin D3 5 mcg (200 unit) tablet (Calcium Citrate + D) lamotrigine 200 mg tablet 200 mg PO Q12H 08/11/24 02/21/25 History brivaracetam 50 mg tablet 50 mg PO BID 09/13/24 02/21/25 History (Briviact) melatonin 5 mg tablet 5 mg PO HS 02/21/25 02/21/25 History Allergies Allergy/AdvReac Type Severity Reaction Status Date / Time Penicillins Allergy Rash Verified 01/06/25 19:17 Vital Signs Vital Signs - 24 hr 02/21/25 20:07 02/21/25 20:23 02/21/25 20:23 Temperature 97.8 F Pulse Rate 86 86 80 Respiratory Rate 16 20 23 H Blood Pressure 178/86 H 178/86 H Pulse Oximetry 99 100 Oxygen Delivery Room Air 02/21/25 20:26 02/21/25 20:30 02/21/25 20:31 Temperature Pulse Rate 87 81 99 Respiratory Rate 14 30 H 36 H Blood Pressure 178/86 H 161/105 H Pulse Oximetry 100 97 100 Oxygen Delivery 02/21/25 20:56 02/21/25 21:00 02/21/25 21:01 Temperature Pulse Rate 90 79 92 Respiratory Rate 19 21 H 17 Blood Pressure 152/74 H Pulse Oximetry 97 95 94 Oxygen Delivery 02/21/25 21:15 02/21/25 21:16 02/21/25 21:55 Temperature Pulse Rate 93 78 96 Respiratory Rate 18 17 20 Blood Pressure 164/81 H Pulse Oximetry 93 93 94 Oxygen Delivery 02/21/25 22:02 02/21/25 22:26 02/21/25 22:30 Temperature Pulse Rate 94 87 89 Respiratory Rate 21 H 18 18 Blood Pressure Pulse Oximetry 94 98 96 Oxygen Delivery 02/21/25 22:46 02/21/25 22:51 02/21/25 23:00 Temperature Pulse Rate 81 91 88 Respiratory Rate 16 25 H 15 Blood Pressure 149/73 H Pulse Oximetry 95 93 91 Oxygen Delivery 02/21/25 23:01 02/21/25 23:17 02/21/25 23:39 Temperature 97.6 F 98.1 F Pulse Rate 95 94 77 Respiratory Rate 19 16 20 Blood Pressure 163/80 H 140/96 H 154/74 H Pulse Oximetry 92 92 95 Oxygen Delivery 02/22/25 00:00 02/22/25 04:00 02/22/25 04:00 Temperature 97.7 F Pulse Rate 78 63 83 Respiratory Rate 18 Blood Pressure 153/66 H Pulse Oximetry 95 Oxygen Delivery 02/22/25 04:26 02/22/25 08:00 Temperature 97.7 F 98.2 F Pulse Rate 63 80 Respiratory Rate 18 14 Blood Pressure 153/66 H 161/88 H Pulse Oximetry 95 97 Oxygen Delivery Exam Narrative: General:Well developed well nourished patient HEENT: Normocephalic, atraumatic, PERRL, Sclerae anicteric, oral mucosa moist. Neck: Supple Resp: CTA Heart: RRR with no murmurs Abd: Soft, nontender. No pain to palpation. Positive bowel sounds Skin: Warm and dry Extremities: No swelling, erythema or pain to palpation Neuro: Alert and Oriented x4 today. CN 2-12 intact. No focal neurological deficits. Strength 5/5 in UE and LE bilaterally. She did have some pain to the left shoulder during exam with mild weakness due to that. Speaking in full sentencese with no expressive aphasia. H&P: Results Labs Labs: Short CBC 02/21/25 Range/Units 20:13 WBC 9.5 (4.5-10.0) K/mm3 Hgb 14.2 (12.0-15.0) g/dL Hct 44.9 (37.0-47.0) % Plt Count 293 (150-375) k/mm3 BMP 02/21/25 20:13 Sodium 134 L Potassium 4.1 Chloride 99 Carbon Dioxide 28 BUN 21 H Creatinine 0.87 Glucose 169 H Calcium 9.8 Cardiac Enzymes 02/21/25 Range/Units 20:13 Troponin I < 0.012 (0.000-0.034) ng/mL Liver Function 02/21/25 Range/Units 20:13 Total Bilirubin 0.3 (0.2-1.3) mg/dL AST 28 (14-36) U/L ALT 21 (6-35) U/L Alkaline Phosphatase 110 (38-126) U/L Albumin 4.4 (3.5-5.1) g/dL Urine 02/21/25 Range/Units 20:29 Urine Color Yellow (Yellow) Urine Appearance Clear (Clear) Urine pH 7.0 (5.0-9.0) Ur Specific [place] 1.009 (1.001-1.035) Urine Protein Negative (Negative) mg/dL Urine Glucose (UA) Negative (Negative) mg/dL Assessment and Plan Assessment and plan (1) Aphasia: Code(s): R47.01 - Aphasia Status: Acute Assessment and Plan: Seizure vs TIA vs Stroke -Likely seizure due to her hx of of her seizures present -EEG and neuro consult ordered -Pt briviact is NF, daughter to bring in -Called Dr. Anthony office at [phone] who is going to notify MD of new seizure and see if they want to adjust medications. Next appt with them is 05/19 -CTH without bleed -CTA without LVO or severe stenosis -MRI pending -No TNK/tPA, unknown LKW -no NIH done in the ER, likely was normal upon reading report -Continue aspirin, statin. Consider switching to high intensity if MRI is positive -Passed bedside swallow -PT/OT -Mechanical DVT ppx for now -hold bp medications for permissive htn, hydralizine PRN for severe elevations (2) Epilepsy: Qualifiers: Epilepsy type: partial symptomatic Intractability: not intractable Partial seizure type: with complex partial seizures Status epilepticus: without status epilepticus Qualified Code(s): G40.209 - Localization-related (focal) (partial) symptomatic epilepsy and epileptic syndromes with complex partial seizures, not intractable, without status epilepticus Code(s): G40.909 - Epilepsy, unspecified, not intractable, without status epilepticus Status: Acute Assessment and Plan: As above (3) Hypertension: Qualifiers: Hypertension type: primary hypertension Qualified Code(s): I10 - Essential (primary) hypertension Code(s): I10 - Essential (primary) hypertension Status: Chronic Assessment and Plan: hold htn medications for now -restart in 24 hours -hydralazine prn for severe elevation (4) Diabetes: Qualifiers: Diabetes mellitus complication status: without complication Diabetes mellitus [facility] insulin use: without [facility] use Diabetes mellitus type: type 2 Qualified Code(s): E11.9 - Type 2 diabetes mellitus without complications Code(s): E11.9 - Type 2 diabetes mellitus without complications Status: Acute Assessment and Plan: hold oral medications -SSI (5) Ulcerative colitis: Code(s): K51.90 - Ulcerative colitis, unspecified, without complications Status: Acute Assessment and Plan: Chronic -continue home medications (6) Dementia of the Alzheimer's type: Code(s): G30.9 - Alzheimer's disease, unspecified; F02.80 - Dementia in other diseases classified elsewhere, unspecified severity, without behavioral disturbance, psychotic disturbance, mood disturbance, and anxiety Status: Acute Assessment and Plan: Chronic Plan SP for this H&P is Dr. Royal [facility] Evelyn [phone] POA Quality VTE Prophylaxis VTE prophylaxis: mechanical ordered
[2025-02-22] MEDS: ASPIRIN 81 MG CHEWABLE TABLET PO (09:47)
[2025-02-22] MEDS: FERROUS SULFATE 325 MG TABLET DR PO (09:47)
--- NOTE | 2025-02-22 12:32 | PCSTNOTE ---
Please refer to the Bedside Swallow Evaluation in the EMR. Please note, silent aspiration cannot be ruled out at bedside. The above pleasant and cooperative pt was seen for a swallow evaluation at bedside. The pt was positioned upright in a recliner at the bedside. She was alert & oriented x and able to follow commands. She is currently on a regular diet and denies dysphagia. Oral mucosa is normal; natural dentition is in fair condition; pt wears partial upper dentures, which are of good fit. Oral peripheral exam revealed lingual and labial structures to be normal. She was able to dry swallow on command and exhibited clear vocal quality. She was tested with pudding, crackers, and thin liquids. The oral stages appeared WNL. No oral leakage or pocketing was noted. During the pharyngeal stage, the swallow reflex appeared prompt & laryngeal elevation was adequate. No overt s/s of aspiration were exhibited; however, silent aspiration cannot be ruled out at bedside. General impression is normal swallow ability. Recommendation: Continue current diet. Thank you for this referral.
--- NOTE | 2025-02-22 16:10 | P.CONNEU_ITS ---
Assessment and Plan Assessment and plan (1) Nausea: Code(s): R11.0 - Nausea Status: Acute (2) Hearing deficit: Code(s): H91.90 - Unspecified hearing loss, unspecified ear Status: Acute Plan 1. 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 2. History of hearing deficit on the right of long duration she is aware of. 3. She is receiving aspirin 81mg daily, lamotrigine 200mg q.12 hours, and brivacet 50mg b.i.d. again as anti seizure medication. Both will be continued as such she is receiving rivastigmine 4.6mg topical at HS for the ongoing dementia will not change at present. Once the EEG is obtained will discuss with her furthe Consult date: 02/22/25 HPI: Lisa Allen is a 79 year old female Admitted to the hospital through the emergency room with ongoing history of 1. Dementia of Alzheimer's type 2. Diabetes mellitus 3. Hypertension 4. Hyperlipidemia 5. GERD 6. Deafness in right ear. Patient has been receiving multiple medications particularly amlodipine 5mg daily, metformin 750mg daily, aspirin 81mg daily, pravastatin 80mg at night, rivastigmine 4.6mg topical at HS, lamotrigine 200mg q.12 hours, brief arrests a tamp 50mg b.i.d., she carries a full code status, she is never a smoker, never alcohol intake or, and initial exam in the emergency room was without any focal neurological deficit other than the problems outlined, her vital signs were normal except blood pressure 178/86, CBC was normal, BMP was almost normal blood sugar of 169, and the mast scan was normal, CT scan of the head revealed no hydrocephalus, no intracranial bleed, age-related changes, chest x-ray documented recent fracture of 1 of the anterior inferior left ribs, head and neck CTA documented no aneurysm and no medium vessel stenitals,has been admitted to the hosp for the possibility of the TIA versus seizure. Review of Systems 2 Review of Systems: All systems reviewed & are unremarkable except as noted in HPI and below PMFSH Past Medical History Medical History Dementia of the Alzheimer's type Diabetes Osteopenia Pseudogout of knee Dementia Complex partial seizures MCI (mild cognitive impairment) Deafness in right ear Gastroesophageal reflux disease Hyperlipidemia Ulcerative colitis Hypertension Surgical History Surgical History History of dilation and curettage History of hip surgery Left hip surgery. Family History Family History Mother Diabetes mellitus Hypertension Cancer Cerebrovascular accident Afib Father Cancer Social History Social History Social History: Lives in [place]. Nonsmoker. No alcohol or illicit substance use. 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 Surrogate decision maker: Aby Riley, daughter. Code status: Full code. Smoking status: Never smoker Second hand tobacco smoke exposure: Yes Alcohol intake: never Substance use: never Substance use type: does not use Do You Feel Safe in your Home?: Yes Lack of Transportation: No Lack of Food: Never True Current Housing: I Have Housing Concerned About Future Housing: No Difficulty Paying Gas/Electric Bills: No Difficulty Paying for Meds: No Currently Unemployed: No Education: Bachelor's Degree Difficulty w/ Childcare or Family Care: No Spiritual care concerns: No Meds Home Medications and Allergies Home Medications ?Medication ?Instructions ?Recorded ?Confirmed ?Type amlodipine 5 mg tablet See Rx Instructions PO DAILY 08/18/21 02/21/25 History mesalamine 0.375 gram 0.75 g PO Q12H 08/18/21 02/21/25 History capsule,extended release 24 hr pantoprazole 40 mg tablet,delayed 40 mg PO HS 08/18/21 02/21/25 History release ferrous sulfate 324 mg (65 mg 324 mg PO DAILY 06/03/23 02/21/25 History iron) tablet,delayed release metformin 750 mg tablet,extended 750 mg PO DAILY 06/03/23 02/21/25 History release 24 hr vedolizumab 300 mg IV PUSH DIRECTED 06/03/23 02/21/25 History aspirin 81 mg capsule 81 mg PO QAM 03/20/24 02/21/25 History losartan 100 mg tablet 100 mg PO HS 03/20/24 02/21/25 History pravastatin 40 mg tablet 80 mg PO HS 03/20/24 02/21/25 History rivastigmine 4.6 mg/24 hour 4.6 mg topical HS 03/20/24 02/21/25 History transdermal patch calcium 315 mg (as 1 tablet PO DAILY 08/11/24 02/21/25 History citrate)-vitamin D3 5 mcg (200 unit) tablet (Calcium Citrate + D) lamotrigine 200 mg tablet 200 mg PO Q12H 08/11/24 02/21/25 History brivaracetam 50 mg tablet 50 mg PO BID 09/13/24 02/21/25 History (Briviact) melatonin 5 mg tablet 5 mg PO HS 02/21/25 02/21/25 History Allergies Allergy/AdvReac Type Severity Reaction Status Date / Time Penicillins Allergy Rash Verified 01/06/25 19:17 Vital Signs Vital Signs - 24 hr 02/21/25 20:07 02/21/25 20:23 02/21/25 20:23 Temperature 36.6 C Pulse Rate 86 86 80 Respiratory Rate 16 20 23 H Blood Pressure 178/86 H 178/86 H Pulse Oximetry 99 100 Oxygen Delivery Room Air 02/21/25 20:26 02/21/25 20:30 02/21/25 20:31 Temperature Pulse Rate 87 81 99 Respiratory Rate 14 30 H 36 H Blood Pressure 178/86 H 161/105 H Pulse Oximetry 100 97 100 Oxygen Delivery 02/21/25 20:56 02/21/25 21:00 02/21/25 21:01 Temperature Pulse Rate 90 79 92 Respiratory Rate 19 21 H 17 Blood Pressure 152/74 H Pulse Oximetry 97 95 94 Oxygen Delivery 02/21/25 21:15 02/21/25 21:16 02/21/25 21:55 Temperature Pulse Rate 93 78 96 Respiratory Rate 18 17 20 Blood Pressure 164/81 H Pulse Oximetry 93 93 94 Oxygen Delivery 02/21/25 22:02 02/21/25 22:26 02/21/25 22:30 Temperature Pulse Rate 94 87 89 Respiratory Rate 21 H 18 18 Blood Pressure Pulse Oximetry 94 98 96 Oxygen Delivery 02/21/25 22:46 02/21/25 22:51 02/21/25 23:00 Temperature Pulse Rate 81 91 88 Respiratory Rate 16 25 H 15 Blood Pressure 149/73 H Pulse Oximetry 95 93 91 Oxygen Delivery 02/21/25 23:01 02/21/25 23:17 02/21/25 23:39 Temperature 36.4 C 36.7 C Pulse Rate 95 94 77 Respiratory Rate 19 16 20 Blood Pressure 163/80 H 140/96 H 154/74 H Pulse Oximetry 92 92 95 Oxygen Delivery 02/22/25 00:00 02/22/25 04:00 02/22/25 04:00 Temperature 36.5 C Pulse Rate 78 63 83 Respiratory Rate 18 Blood Pressure 153/66 H Pulse Oximetry 95 Oxygen Delivery 02/22/25 04:26 02/22/25 08:00 02/22/25 09:47 Temperature 36.5 C 36.8 C Pulse Rate 63 80 Respiratory Rate 18 14 Blood Pressure 153/66 H 161/88 H Pulse Oximetry 95 97 Oxygen Delivery Room Air 02/22/25 09:47 02/22/25 12:00 02/22/25 14:00 Temperature Pulse Rate 66 76 80 Respiratory Rate 14 Blood Pressure 145/67 H Pulse Oximetry 98 Oxygen Delivery Exam 2 Narrative: Exam today revealed her to be awake alert cooperative, able to follow the verbal commands appropriately though hard of hearing but at the same time was interested in the exam, head normocephalic with no bruit, neck supple with no cervical bruit no thyromegaly no lymphadenopathy, heart regular with no murmur, lungs clear to auscultation, abdomen is soft nontender, neurologically she was sitting in chair mention that she walks only with assistance, pupils round regular feels the vision full in all 4 quadrants to finger confrontation, extraocular movements full with no nystagmus, facial sensation intact, face symmetrical, she was hard of hearing on the right side of long duration which she attributes to her childhood meningitis, tongue in the oral cavity, motor examination revealed her to have no drift of 1 or other upper extremity against gravity, she was not made to stand or walk at this particular time, and the deep tendon reflexes in the upper and lower extremities were +/-, plantar responses were negative, he had no ataxia or when she approached the object with either hand. Results Labs 02/21/25 20:13 02/21/25 20:13 Labs: Short CBC 07/28/25 Range/Units 20:13 WBC 9.5 (4.5-10.0) K/mm3 Hgb 14.2 (12.0-15.0) g/dL Hct 44.9 (37.0-47.0) % Plt Count 293 (150-375) k/mm3 BMP 02/21/25 20:13 Sodium 134 L Potassium 4.1 Chloride 99 Carbon Dioxide 28 BUN 21 H Creatinine 0.87 Glucose 169 H Calcium 9.8 Cardiac Enzymes 02/21/25 Range/Units 20:13 Troponin I < 0.012 (0.000-0.034) ng/mL Liver Function 02/21/25 Range/Units 20:13 Total Bilirubin 0.3 (0.2-1.3) mg/dL AST 28 (14-36) U/L ALT 21 (6-35) U/L Alkaline Phosphatase 110 (38-126) U/L Albumin 4.4 (3.5-5.1) g/dL Urine 02/21/25 Range/Units 20:29 Urine Color Yellow (Yellow) Urine Appearance Clear (Clear) Urine pH 7.0 (5.0-9.0) Ur Specific [place] 1.009 (1.001-1.035) Urine Protein Negative (Negative) mg/dL Urine Glucose (UA) Negative (Negative) mg/dL
--- NOTE | 2025-02-22 19:18 | PHAR ---
HOME MED (Brivaracetam [Briviact] 50 mg tablet) 1 tablet bid verified
[2025-02-22] MEDS: PANTOPRAZOLE 40 MG TABLET PO (20:39)
[2025-02-22] MEDS: MELATONIN 5 MG TABLET PO (20:39)
[2025-02-22] MEDS: PRAVASTATIN SODIUM 20 MG TABLET 80 MG PO (20:39)
[2025-02-22] MEDS: BRIVARACETAM 50 MG 50 EACH PO (20:40)
[2025-02-22] MEDS: INSULIN ASPART (*BKC) 100 UNITS/ML SUB-Q (20:48)
[2025-02-22] MEDS: RIVASTIGMINE TARTRATE 4.6 MG PATCH 1 PATCH TRANSDERM (22:50)
[2025-02-23] VITALS: BP 152/78; PULSE 4; PULSE 77; RESP 18; TEMP 36.8; O2SAT 95
[2025-02-23 03:54] VITALS: BP 155/74; PULSE 76; RESP 20; TEMP 37; O2SAT 92
[2025-02-23 03:55] VITALS: BP 155/74; PULSE 76; RESP 20; TEMP 37; O2SAT 92
[2025-02-23 04:00] VITALS: PULSE 77
[2025-02-23 05:31] LABS: Alanine Aminotransferase 18 U/L (6-35); Albumin Level 4.2 g/dL (3.5-5.1); Alkaline Phosphatase 98 U/L (38-126); Anion Gap 8 mmol/L (4-12); Aspartate Amino Transferase 25 U/L (14-36); Bilirubin,Total 0.4 mg/dL (0.2-1.3); Blood Urea Nitrogen 13 mg/dL (7-17); Calcium 9.5 mg/dL (8.4-10.2); Carbon Dioxide 29 mmol/L (22-30); Chloride 103 mmol/L (98-107); Estimated CRCL calculation 39 ml/min; Estimated Glomerular Filt Rate > 60; Glucose 154 mg/dL (65-110); Potassium 3.6 mmol/L (3.4-5.0); Sodium 140 mmol/L (137-145); Total Protein 7.2 g/dL (6.3-8.2)
[2025-02-23 08:00] VITALS: BP 143/63; PULSE 70; PULSE 94; RESP 14; TEMP 36.6; O2SAT 94
[2025-02-23] MEDS: FERROUS SULFATE 325 MG TABLET DR PO (08:23)
[2025-02-23] MEDS: ASPIRIN 81 MG CHEWABLE TABLET PO (08:23)
[2025-02-23] MEDS: BRIVARACETAM 50 MG 50 EACH PO (08:24)
[2025-02-23] MEDS: ACETAMINOPHEN 325 MG TABLET 650 MG PO (08:24)
--- NOTE | 2025-02-23 09:58 | PCNEURO ---
EEG: Entered room to perform EEG where family was present. They informed me that her mother spoke with Neurology yesterday and that they weren't going to go through with the EEG. Her aphasia is apart of her szs and they want to follow up with their neurologists instead of changing her medication, etc. They were mainly concerned about TIA.
[2025-02-23 12:00] VITALS: PULSE 76
--- NOTE | 2025-02-23 12:50 | P.DS_ITS ---
DS: Admitting Diagnosis Discharge Date 02/23/2025 Admitting Diagnosis TIA vs Seizure DS: Discharge Diagnosis Discharge Diagnosis (1) Epilepsy: Qualifiers: Epilepsy type: partial symptomatic Intractability: not intractable Partial seizure type: with complex partial seizures Status epilepticus: without status epilepticus Qualified Code(s): G40.209 - Localization-related (focal) (partial) symptomatic epilepsy and epileptic syndromes with complex partial seizures, not intractable, without status epilepticus Code(s): G40.909 - Epilepsy, unspecified, not intractable, without status epilepticus Status: Acute (2) Hypertension: Qualifiers: Hypertension type: primary hypertension Qualified Code(s): I10 - Essential (primary) hypertension Code(s): I10 - Essential (primary) hypertension Status: Chronic (3) Diabetes: Qualifiers: Diabetes mellitus complication status: without complication 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: without care home use Diabetes mellitus type: type 2 Qualified Code(s): E11.9 - Type 2 diabetes mellitus without complications Code(s): E11.9 - Type 2 diabetes mellitus without complications Status: Acute (4) Ulcerative colitis: Code(s): K51.90 - Ulcerative colitis, unspecified, without complications Status: Acute (5) Dementia of the Alzheimer's type: Code(s): G30.9 - Alzheimer's disease, unspecified; F02.80 - Dementia in other diseases classified elsewhere, unspecified severity, without behavioral disturbance, psychotic disturbance, mood disturbance, and anxiety Status: Acute DS: Summary Hospital Course Reason for hospitalization: TIA vs seizure Hospital Course: Admission: Patient was a 79 year old female with a history of seizures,dementia, HTN, DM who presents to the ED for expressive aphasia. Pt is a poor historian and is u nsure why she is here and cannot remember how she got here. She request that I speak to her daughter, Serenity. Per EMR and daughter- Pt was seen by the [facility] facility staff who noticed she was not speaking correctly. Her words were jumbled and she was unable to hold a conversation so she was sent to the ED. Daughter states pt has a history of seizures and this is how it presents. She states that usually sounds like garbled words and lasts a few minutes and then he is somewhat confused after and then recovers to baseline. She also has seizures that she becomes unresponsive and does not speak but tracks with her eyes. In July she had a tonic clonic seizure. She was seen in the EMU at [facility] and her medications were changed. Her new medication that was started is Briviact. She currently sees Dr. Anthony at [phone] and next appointment is May 19. No other neurological symptoms were observed. Pt has no complaints and specifically denies pain, shortness of breath, chest pain, nausea, vomiting, diarrhea but does feel little constipated. In the ED: without any focal neurological deficit other than the problems outlined, her vital signs were normal except blood pressure 178/86, CBC was normal, BMP was almost normal blood sugar of 169, and the mast scan was normal, CT scan of the head revealed no hydrocephalus, no intracranial bleed, age- related changes, chest x-ray documented recent fracture of 1 of the anterior inferior left ribs, head and neck CTA documented no aneurysm and no medium vessel stenitals Hospital course: patient was admitted to the medical unit for further evaluation to rule out new ischemic stroke versus seizure. Neurology was consulted. 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 She is receiving aspirin 81mg daily, lamotrigine 200mg q.12 hours, and brivacet 50mg b.i.d. again as anti seizure medication. Both will be continued as such she is receiving rivastigmine 4.6mg topical at HS for the ongoing dementia that was not changed during admission. spoke with patient and her daughter at bedside at this time defer EEG and reported they will follow-up with her neurologist outpatient regarding this current episode. patient with no neurological deficits on assessment patient was discharged back to assisted living facility. Patient back to her baseline, reviewed unremarkable vital stable. Status at Discharge Functional status at discharge: independent ambulation Overall status at discharge: patient is back to baseline Time Spent with Patient Time attestation: Total time spent providing and/or coordinating discharge services: Time spent: Greater than 30 minutes Exam Narrative: General:Well developed well nourished patient HEENT: Normocephalic, atraumatic, PERRL, Sclerae anicteric, oral mucosa moist. Neck: Supple Resp: CTA Heart: RRR with no murmurs Abd: Soft, nontender. No pain to palpation. Positive bowel sounds Skin: Warm and dry Extremities: No swelling, erythema or pain to palpation Neuro: Alert and Oriented x4 today. CN 2-12 intact. No focal neurological deficits. Strength 5/5 in UE and LE bilaterally. She did have some pain to the left shoulder during exam with mild weakness due to that. Speaking in full sentencese with no expressive aphasia. DS: Data Data Completed and Pending Labs on day of discharge: Labs from last 24 hours 02/23/25 02/23/25 02/23/25 12:04 07:59 04:47 Sodium 140 Potassium 3.6 Chloride 103 Carbon Dioxide 29 Anion Gap 8 BUN 13 D Creatinine 0.78 Estim Creat Clear Calc 39 Estimated GFR > 60 Glucose 154 H POC Capillary Glucose 112 H 131 H Calcium 9.5 Total Bilirubin 0.4 AST 25 ALT 18 Alkaline Phosphatase 98 Total Protein 7.2 Albumin 4.2 02/23/25 02/22/25 02/22/25 00:12 20:12 17:07 Sodium Potassium Chloride Carbon Dioxide Anion Gap BUN Creatinine Estim Creat Clear Calc Estimated GFR Glucose POC Capillary Glucose 127 H 286 H 160 H Calcium Total Bilirubin AST ALT Alkaline Phosphatase Total Protein Albumin Imaging Radiologist's impression: EXAMINATION: CTA BRAIN/CAROTID DATE: 02/21/2025 21:33 INDICATION: Stroke with aphasia TECHNIQUE: Computed tomographic angiography (CTA) of the head and neck was performed with 100 mL Omnipaque-350 intravenous contrast. Multiplanar recons tructions and maximum intensity projection 3D-reconstructions of the carotid arteries and of the intracranial arteries were created by the technologist on a separate workstation. Automated exposure control and iterative reconstruction technique were employed.The dose-length product was 965.33 mGy-cm. COMPARISON: None. FINDINGS: Carotid arteries: Small amount of nonhemodynamically significant atherosclerotic plaque along the normal caliber thoracic aorta and great vessels arising from the arch with no dissection. Left vertebral artery is mildly dominant with no stenosis along the extracranial portions of the arteries. There is atherosclerotic plaque with 10% stenosis of the right carotid bulb relative to normal distal artery lumen diameter (NASCET criteria). There is atherosclerotic plaque with 0% stenosis of the left carotid bulb relative to normal distal artery lumen diameter. Likely benign 1.2 cm rim calcified, centrally fat attenuation nodule in the left thyroid lobe. Cervical soft tissues are otherwise unremarkable. Mild biapical pleural-parenchymal scarring. Mild to moderate cervical spondylosis with 3 mm anterolisthesis C4 on C5. Intracranial arteries Left vertebral artery is dominant. Small amount of nonhemodynamically significant atherosclerotic plaque along the bilateral intracranial vertebral arteries and the bilateral carotid siphons.. There is no hemodynamically significant stenosis in the vertebral, basilar and internal carotid arteries. Both A1 and P1 segments are patent. The left P1 segment is tortuous and diminutive with majority of flow to the left posterior cerebral artery supplied via a patent large caliber left posterior commuting artery. There are no aneurysms identified. Cerebral arterial arborization appears symmetric. IMPRESSION: 1. 10% stenosis of the right carotid bulb relative to normal distal artery lumen diameter (NASCET criteria). 2. 0% stenosis of the left carotid bulb relative to normal distal artery lumen diameter. 3. Unremarkable cerebral CT angiogram with no hemodynamically significant stenosis, thrombosis or aneurysm. EXAMINATION: MR brain/brain stem wo/w con DATE: 02/22/2025 12:43 INDICATION: Transient ischemic episode TECHNIQUE: Magnetic resonance imaging (MRI) of the brain and brainstem was performed without and with 14 mL Multihance intravenous contrast. Sequences included sagittal and axial T1-weighted SE, axial diffusion-weighted FS SE, axial 3D SWAN, axial T2-weighted FLAIR, and axial T2-weighted FSE. Postcontrast axial and coronal T1-weighted SE was obtained. Apparent diffusion coefficient (ADC) maps were created. 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 There are no areas of restricted diffusion to suggest acute infarction. No acute intracranial hemorrhage or abnormal intracranial mass lesion. There are scattered areas of nonspecific increased T2-weighted signal intensity in the cerebral white matter, predominantly involving the deep and periventricular white matter. There are multiple scattered foci of susceptibility artifact at the bilateral basal ganglia, thalami and bilateral cerebral and cerebellar hemispheres consistent with sequela of chronic microhemorrhage which could relate to hypertension or amyloid angiopathy. The largest region is located at the posterior left corpus callosum. There are no intraparenchymal signal abnormalities seen on the other pulse sequences. The ventricles are symmetric and normal in size. There are no abnormal extra-axial fluid collections. Flow voids are seen in the cerebral arteries on the T2-weighted sequences along with contrast enhancement on the postcontrast imaging consistent with their expected patency. No abnormally enhancing lesions on the postcontrast imaging. Mild mucosal thickening the bilateral ethmoid sinuses. Changes of bilateral intraocular lens replacement. IMPRESSION: 1. 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 No acute intracranial process. 2. Numerous foci of susceptibility artifact consistent with sequela of chronic microhemorrhage in the bilateral thalami, basal ganglia, cerebral and cerebellar hemispheres which suggests sequela of either chronic hypertension or amyloid angiopathy. 3. Moderate periventricular predominant nonspecific white matter T2 hyperinte nsity consistent with chronic small vessel ischemic disease. Discharge Plan Discharge Attending physician on discharge: Mac Vance Consulting providers: Katherine Campos; Russell Banks; Abdullahi Jeffrey; Mikel Dang Discharging Clinician: Annemarie Christiansen Anticipated Discharge Date/Time: 02/23/25 12:43 Patient Disposition: NH Senior Living/Asst Living Activity: november shower Diet: as tolerated Discharge Instructions: Per Care Coordination, patient to discharge to [facility]([phone]) Assisted living. Please fax discharge instructions and medication sheets to [phone]. 1) TIA vs. Seizure * A brain MRI was completed that showed no new stroke * Continue taking your ASA and Pravastatin * Resume taking your anticonvulsants as indicated * EEG deferred to outpatient neurologist * Follow-up with Neurologist as scheduled How can you care for yourself at home? ? Keep track of any new symptoms or changes in your symptoms. ? Rest until you feel better. ? Be safe with medicines. Take your medicines exactly as prescribed. Call your doctor if you think you are having a problem with your medicine. ? Do not drive after taking a prescription pain medicine. ? Ensure to follow-up with primary care physician as indicated and provide updated medication list provided to you at discharge. When should you call for help? Call 911 anytime you think you may need emergency care. For example, call if: ? You passed out (lost consciousness). Call your doctor now or seek immediate medical care if: ? You have new symptoms like fever, difficulty breathing, Chest pain, vomiting, or rash. ? You have new or different pain. ? You are confused and are having trouble thinking clearly. ? Your symptoms are getting worse. Watch closely for changes in your health, and be sure to contact your doctor if: ? You do not get better as expected. Patient Instructions: Antibiotic Form, Transient Ischemic Attack (DC), Epilepsy (DC), Back Pain in Older Children and Adolescents (GEN) Patient Language: Amharic Stand Alone Forms: General Discharge Information Follow-up/Referrals: Yelitza,Servando Bernstein MD [Primary Care Provider] - 2 Weeks Discharge Medications: Continued amlodipine 5 mg tablet See Rx Instructions PO DAILY Rx Instructions: 7.5 orally daily; pantoprazole 40 mg tablet,delayed release (DR/EC) 40 mg PO HS mesalamine 0.375 gram capsule,extended release 24hr 0.75 g PO Q12H vedolizumab 300 mg 300 mg IV PUSH DIRECTED Patient Comments: [id number] Rx Instructions: Infuse 5ml every 8 weeks ferrous sulfate 324 mg (65 mg iron) tablet,delayed release (DR/EC) 324 mg PO DAILY pravastatin 40 mg tablet 80 mg PO HS losartan 100 mg tablet 100 mg PO HS rivastigmine 4.6 mg/24 hour patch 24 hour 4.6 mg topical HS aspirin 81 mg Capsule 81 mg PO QAM calcium citrate-vitamin D3 [Calcium Citrate + D] 315 mg-5 mcg (200 unit) tablet 1 tablet PO DAILY lamotrigine 200 mg tablet 200 mg PO Q12H Briviact 50 mg tablet 50 mg PO BID melatonin 5 mg tablet 5 mg PO HS Held metformin 750 mg tablet extended release 24 hr 750 mg PO DAILY Hold Instructions: Resume on 02/24/25. Date of admission: 02/22/25 16:53 Primary Care Provider: YelitzaServando Admitting Provider: Alfreda Hebert Attending physician on admission: Annemarie Christiansen Condition: Stable Quality VTE Prophylaxis VTE prophylaxis: mechanical ordered -Patient's previous records reviewed on admission -ER notes reviewed in detail on admission -discussed all findings and current treatment plan with patient/Family/POA -Consultations reviewed for recommendations -Patient's disposition for safe discharge discussed with pillowcase maker Dictation performed by [employer] direct speech recognition software, therefore history faculty member variants and typographical errors may occur. Hospitalist MIPS Heart Failure (Exclusion) Patient has history of Heart Transplant or Left Ventricular Assistive Device?: No IF YES, STOP HERE Heart Failure (Qualifier) Patient has current or prior documentation of LVEF less than or equal to 40%, or mod/servere depressed LVSF?: No IF NO, STOP HERE
== END 2025-02-23 13:35 | DRG 92 ==
LOC: ANHED 22:03 → ANH2MED 22:44
PROVIDERS: Physician Assistant; Admitting Provider General Practice; Emergency Provider Family Medicine; PCP Family Medicine; Visit Provider Nurse Practitioner Family
DX: R47.01 Aphasia (principal); G40.209 Localization-related (focal) (partial) symptomatic epilepsy and epileptic syndromes with complex partial seizures, not intractable, without status epilepticus; K51.90 Ulcerative colitis, unspecified, without complications; I10 Essential (primary) hypertension; E11.9 Type 2 diabetes mellitus without complications; E78.5 Hyperlipidemia, unspecified; M85.80 Other specified disorders of bone density and structure, unspecified site; K21.9 Gastro-esophageal reflux disease without esophagitis; G30.9 Alzheimer's disease, unspecified; F02.80 Dementia in other diseases classified elsewhere, unspecified severity, without behavioral disturbance, psychotic disturbance, mood disturbance, and anxiety; Z79.82 Long term (current) use of aspirin
CPT/HCPCS: 36415; 70450; 70496; 70498; 70553; 71045; 80053; 81001; 82948; 84484; 85025; 85610; 85730; 92610; 93005; 96374; 97161; 97165; 99285; A9270; A9577; G0378; J1815; Q9967

== ENCOUNTER 2025-04-19 11:18 | Emergency (ER) | payer MEDICARE, SELFPAY ==
--- NOTE | ~2025-04-19 | XR_ITS ---
X-rays left shoulder Indication: Fall, pain Comparison: None Technique: 5 views left shoulder Findings/Impression: 1. Impacted fracture left humeral neck with large overlapping fragment. 2. Chronic fractures left ribs 3 and 4. Reviewed, dictated and finalized at location R.
[2025-04-19 11:24] VITALS: BP 132/72; PULSE 83; RESP 20; TEMP 36.4; O2SAT 97
--- OUTSIDE RECORDS SUMMARY | 2025-04-19 12:10 | XMS_ITS | Encounter Summary ---
Author Organization [facility] Address [address] [place] [address] Care Team Providers Care Die Presser Name Role Phone Servando Torre MD Primary Care Provider + [phone] Encounter Details Date Type Department Care Team (Late st Contact Info) Description 08/19/2023 Therapy Plan [facility] One Day Services [address] [place] [address] Josué Cook MD [address] [place] [address] Social History Tobacco Use Types Packs/Day Years [...] Care Team (Late st Contact Info) Description 05/26/2025 2:30 PM CDT Appointment [facility] Outpatient Infusion Services [address] [place] [address] Josué Cook MD [address] [facility] [address] [place] [address] documented as of this encounter Goals Goal Patient Goal Type Associated Problems Recent Progress Patient-Stated? Author HOME TO [facility]DEPENDENT LIV[facility] General No Vannessa Blackwell RN documented as of this encounter Visit Diagnoses Diagnosis Abnormal liver function tests- Primary Other abnormal blood chemistry Chronic ulcerative colitis, unspecified complication ([facility]/HCC 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
--- OUTSIDE RECORDS SUMMARY | 2025-04-19 12:10 | XMS_ITS | Encounter Summary ---
Author Organization [facility] Address [address] [place] [address] Care Team Providers Care Speech Clinician Name Role Phone Servando Torre MD Primary Care Provider + [phone] Encounter Details Date Type Department Care Team (Late st Contact Info) Description 02/03/[address] [facility] One Day Services [address] [place] [address] Josué Cook MD [address] [place] [address] Social History Tobacco Use Types Packs/Day Years [...] Info) Description 05/26/2025 2:30 PM CDT Appointment [facility] Outpatient Infusion Services [address] [place] [address] Josué Cook MD [address] [facility] [address] [place] [address] documented as of this encounter Goals Goal Patient Goal Type Associated Problems Recent Progress Patient-Stated? Author HOME TO [facility]DEPENDENT LIVING General No Vannessa Blackwell RN documented as of this encounter Visit Diagnoses Diagnosis Chronic ulcerative colitis, unspecified complication (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
--- OUTSIDE RECORDS SUMMARY | 2025-04-19 12:10 | XMS_ITS | Encounter Summary ---
Author Organization [facility] Address [address] [place] [address] Care Team Providers Care Catcher Helper Name Role Phone Jared Abrams MD Primary Care Provider [phone] Servando Torre MD Primary Care Provider [phone] Encounter Details Date Type Department Care Team (Late Contact Info) Description 09/26/2003 Abstract [facility] Conversion , Generic Conversion, Social History [...] Department Care Team (Late Contact Info) Description 05/26/2025 2:30 PM CDT Appointment [facility] Outpatient Infusion Services [address] [place] [id number] Josué Cook MD [address] [address] documented as of this encounter Visit Diagnoses Not on filedocumented in this encounter Care Teams Catcher Helper Relationship Specialty Start Date End Date Jared Abrams MD PCP - General 08/28/11 07/16/22 Servando Torre MD [address] [facility] [address] [place] [address] PCP - General FAMILY PRACTICE 07/17/22 documented as of this encounter
--- OUTSIDE RECORDS SUMMARY | 2025-04-19 12:10 | XMS_ITS | Clinical Summary ---
Author Organization [facility] Address [address] [place] [address] Care Team Providers Care Application Systems Engineer Name Role Phone Servando Torre MD Primary Care Provider Mariela Denton MD Unavailable [phone] Lexis Barroso OD Unavailable [phone] Adria Burleson MD Unavailable Aldo Castro MD Unavailable Josué Cook MD Unavailable [phone] Kimberly Nicolas MD Unavailable [phone] Allergies Active Allergy Reactions Criticality Noted Date Comments Penicillins Hives High 01/30/2023 She thinks as an adult but is unsure Medications multivitamin capsule Take 1 capsule by mouth daily Active cholecalciferol (VITAMIN D-3) 2000 unit tabletIndications :Low serum vitamin D Take 1 tablet (2,000 Units total) by mouth daily Low Vitamin D level from 05/30/2022. 90 tablet 3 022 Active OneTouch Delica Plus Lancet 33 gauge [...] at: [facility] ([facility] order in [facility] under 'Procedures' tab). 1 each 5 023 [...] in AM and 1 tablet in PM 024 Active pravastatin (PRAVACHOL) 80 mg tabletIndications :Mixed [...] day 60 tablet 5 025 2024 Active OneTouch Ultra Test stripIndications: Prediabetes 1 each by other route daily To check blood glucose 50 each 11 Active glipiZIDE (GLUCOTROL) 2.5 mg tabletIndications :type 2 diabetes mellitus Take 1 tablet (2.5 mg total) by mouth daily 90 tablet 3 025 2025 Active calcium citrate-vitamin D3 (CITRACAL+D) 315 mg-5 mcg (200 unit) per tablet Take 1 tablet every day by oral route. 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 03/23/2025 Compression fracture of T11 vertebra 03/23/2025 Diarrhea 03/23/2025 Effusion, left knee 03/23/2025 Knee effusion, right 03/23/2025 Leukocytosis 03/23/2025 Lung infiltrate 03/23/2025 Nausea 03/23/2025 Sepsis 03/23/2025 Septic joint of left knee joint 03/23/2025 UTI (urinary tract infection) 03/23/2025 Colon cancer screening 08/31/2024 Somnolence, daytime 07/08/2024 [...] epilepticus 03/17/2023 At risk for falls 03/13/2023 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 [...] 05/29 Assessment & Plan (07/05/2024 3:20 PM HYSTER MACHINE OPERATOR): A(n) yearly Medicare Annual Wellness Visit [...] months Assessment & Plan (06/26/2023 2:02 PM HYSTER MACHINE OPERATOR): A(n) yearly Medicare Annual Wellness Visit [...] months Assessment & Plan (06/23/2022 3:06 PM HYSTER MACHINE OPERATOR): A(n) initial Medicare Annual Wellness Visit [...] (06/19/2022): Added automatically from request for surgery [id number] Ear ringing 03/03/2013 Asymmetrical sensorineural hearing loss 03/03/20 13 Stress fracture 07/07/2012 Arthralgia of hip 02/06/2011 Resolved Problems Problem Noted Date Diagnosed Date Resolved Date Hospital discharge follow-up 06/11/2023 08/07/2023 Assessment & Plan (06/11/2023 1:42 PM HYSTER MACHINE OPERATOR): I have reviewed the hospital record, [...] Encounters Date Type Department Care Team Description 04/07/2025 Orders Only [facility] Primary Care at [address] [phone] Servando Torre MD 03/23/2025 11:30 AM CDT Office Visit [facility] Primary Care at [address] [phone] Servando Torre MD Hypertension associated with diabetes (HCC) (Primary Dx); Mixed diabetic hyperlipidemia associated with type 2 diabetes mellitus (HCC); Osteopenia of both hips; Screening for osteoporosis; Need for hepatitis B screening test 03/16/2025 8:20 AM CDT Lab [address] [address] Mixed diabetic hyperlipidemia associated with type 2 diabetes mellitus (HCC); Hypertension associated with diabetes (HCC); Hypertension associated with diabetes (HCC) 03/16/2025 Results Follow-Up [facility] Primary Care at [address] [phone] Servando Torre MD Lipid panel, Hemoglobin A1c, Comprehensive metabolic panel, Additional followed-up results: 4 03/08/2025 3:30 PM CDT Office Visit [facility] Orthopedic and Sports Medicine [address] [place] [phone] Riri Gonzalez PA Primary osteoarthritis of both knees (Primary Dx) 02/23/2025 Orders Only [facility] Primary Care at [address] [phone] Silvestre Ahn MD 02/22/2025 Telephone [facility] Medicine Epilepsy [address] [facility] [address] [place] [address] [place] [address] Adria Burleson MD 02/22/2025 Telephone [facility] Medicine Epilepsy [address] [facility] [address] [place] [address] [place] [address] Adria Burleosn MD 02/22/2025 Orders Only [facility] Primary Care at [address] [phone] Silvestre Ahn MD 02/01/2025 Orders Only [facility] Scanning, Provider 02/01/2025 Telephone [facility] Medicine Gastroenterology [address] [facility] [address] [place] [address] [place] [address] Cara Garzon, RN Med Management - Entyvio renewal 01/26/2025 Telephone [facility] Primary Care at [address] [phone] Servando Torre MD [facility] diabetic supplies 01/25/2025 Results Follow-Up [facility] at [address] [phone] Mara Almendarez NP XR Ribs Left W PA Chest 3 or More Views 01/24/2025 3:45 PM CDT Ancillary Procedure [facility] Imaging at [address] [phone] Rib pain on left side; Accidental fall, initial encounter 01/24/2025 3:30 PM CDT Office Visit [facility] at [address] [phone] Pricilla Olguin NP Rib pain on left side (Primary Dx); Accidental fall, initial encounter from Last 3 Months Immunizations Immunization Administration Dates Next Due Influenza, Quadrivalent, Hig h Dose, Preservative Free, Intrr 06/11/2023 Influenza, Trivalent, Adjuva nted, Intramuscular 05/05/2024 Influenza, Unspecified 03/27/2023(Deferr ed: Patient Refused),07/28/2022(Deferred: Patient Refused),05/06/2022,07/28/2021(Deferre d: Patient Refused) Pfizer Sars-Cov-2 Bivalent V accination (12+ YRS) 05/30/2022 Pneumococcal Conjugate Pcv20 03/27/2023 Tdap 07/11/2024 ZOSTER Recombinant 08/01/2020,05/30/2020 Surgical History Surgery Date Site/Laterality Comments PARTIAL HIP ARTHROPLASTY 07/28/2014 - 07/27/2015 Left RETINAL DETACHMENT SURGERY Right FEMUR FRACTURE SURGERY 07/28/2010 - 07/27/2011 Left COLONOSCOPY CATARACT EXTRACTION FRACTURE SURGERY CATARACT EXTRACTION Medical History Medical History Date Comments Ulcerative colitis 2019 Hypertension Hyperlipidemia GERD (gastroesophageal reflux disease) Diabetes mellitus (HCC) Anemia 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 Detached retina Gout Prediabetes 06/19/2022 Broken ribs 8 Syncope Seizure (HCC) Type 2 diabetes mellitus Cataract Vascular dementia Arthritis Family History Medical History Relation Name Comments [...] Tobacco: Never Tobacco Cessation:Counseling Given: Not Answered PHQ-2 Answer Date Recorded PHQ-2 Total Score (If total score is 3 or more points, staff should administer the PHQ-9) 0 03/23/2025 AUDIT-C Answer Date Recorded Q1: How often do you have a drink containing alc ohol? Never 03/08/2025 Average Number of Drinks Not on file 025 Frequency of Binge Drinking Not on file 02/25 Personal Safety Answer Date Recorded Have you ever been in or are you currently in a harmful physical or emotional relationship or is someone making you feel afraid or unsafe? Denies 12/07/2024 Comments No Sex and Gender Information Value Date Recorded Sex Assigned at Not on file Legal Sex Female 9:30 AM HYSTER MACHINE OPERATOR Gender Identity Female 04/05/2022 6:17 PM CDT Sexual Orientation Straight 04/05/2022 6: 17 PM CDT Obstetrics History Last Filed Vital Signs Vital Sign Reading Time Taken Comments Blood Pressure 134/70 03/23/2025 11:31 AM CDT Pulse 82 03/23/2025 11:31 AM CDT Temperature 36.1 C (96.9 F) 03/23/2025 11:31 AM CDT Respiratory Rate 18 03/23/2025 11:31 AM CDT Oxygen Saturation 96% 03/23/2025 11:31 AM CDT Inhaled Oxygen Concentration - - Weight 64 kg (141 lb) 03/23/2025 11:31 AM CDT Height 157.5 cm (5' 2) 03/23/2025 11:31 AM CDT Body Mass Index 25.79 03/23/2025 11:31 AM CDT Plan of Treatment Health Maintenance Due Date Last Done Comments Hepatitis B Screening 1963 Osteoporosis Screening-Bone Density Scan 12/12/2024 12/12/2022, 12/12/2022 Covid-19 Vaccine (6 - Modern a risk season) 2025 06/25/2024, 05/30/2022, 05/18/2021, Additional history exists Influenza Vaccine (#1) 2025 , 06/11/2023, 05/06/2022 Foot Exam 04/01/2025 04/01/2024, 11/2023, 12/19/2022 Well Visit 65+ 07/05/2025 07/05/2024, 05/30, 06/19/2022 Hemoglobin A1C 09/16/2025 03/16/2025, 11/26, 09/21/2024, Additional history exists Albumin Creatinine Ratio, Urine 09/21/2025 09/21/2024, 07/02/2024, 03/21/2023 Fall Risk Assessment 12/07/2025 12/07/2024, 09/21/2024, 07/05/2024, Additional history exists Dilated Eye Exam 12/22/2025 12/22/2024, , 11/29/2022 Lipid Panel 03/16/2026 03/16/2025, 12/0 12/2023, 03/30/2024, Additional history exists eGFR 03/16/2026 03/16/2025, 12/0 12/2023, 03/30/2024, Additional history exists Depression Screening 03/23/2026 03/23/2025, 12/21/2024, 09/21/2024, Additional history exists DTaP/Tdap/Td Vaccine (2 - Td or Tdap) 07/11/2034 07/11/2024 Zoster Vaccine Completed 08/01/2020, 05/30/2020 Pneumococcal vaccine 65+ Completed 03/27/2023 Procedures Procedure Name Priority Date/Time Associated Diagnosis Comments EGFR Routine 03/16/2025 8:25 AM CDT Hypertension associated with diabetes (HCC) DIFFERENTIAL AUTO Routine 03/16/2025 8:2 5 AM CDT Hypertension associated with diabetes (HCC) THYROID FUNCTION CASCADE Routine 03/16/2025 8:25 AM CDT Hypertension associated with diabetes (HCC) CBC WITH AUTO DIFFERENTIAL Routine 03/16/2025 8:25 AM CDT Hypertension associated with diabetes (HCC) COMPREHENSIVE METABOLIC PANEL Routine 03/16/2025 8:25 AM CDT Hypertension associated with diabetes (HCC) HEMOGLOBIN A1C Routine 03/16/2025 8:25 AM CDT Hypertension associated with diabetes (HCC) Mixed diabetic hyperlipidemia associated with type 2 diabetes mellitus (HCC) LIPID PANEL Routine 03/16/2025 8:25 AM CDT Mixed diabetic hyperlipidemia associated with type 2 diabetes mellitus (HCC) ND ARTHROCENTESIS ASPIR&/INJ MAJOR JT/BURSA W/O US Routine 03/08/2025 3:30 PM CDT Primary osteoarthritis of both knees BRAIN COMPUTED TOMOGRAPHY (CT) Schedule Routine, Read Routine (OP Routine) 02/21/2025 1:15 PM CDT MRI BRAIN W WO CONTRAST Schedule Routine, Read Routine (OP Routine) 02/21/2025 11:59 AM CDT SCAN - LABS 02/01/2025 XR RIBS LEFT W PA CHEST Schedule SHIRA, Read SHIRA (Appt Today, Awaiting Results) 01/24/2025 3:57 PM CDT Rib pain on left side Accidental fall, initial encounter HM DIABETES EYE EXAM Routine 12/22/2024 8:42 AM CDT ALBUMIN CREATININE RATIO, URINE Routine 09/21/2024 10:05 AM HYSTER MACHINE OPERATOR Hypertension associated with diabetes (HCC) DEXA AXIAL SKELETON BONE DENSITY 1 OR MORE SITES Schedule Routine, Read Routine (OP Routine) 12/12/2022 2:33 PM CDT Screening for osteoporosis Asymptomatic menopausal state from Last 3 Months or Most Recently Relevant to Health Maintenance Results * eGFR (03/16/2025 8:25 AM CDT) [facility] eGFR 67 >=60 mL/min/1. 73 m2 Comment: Interpretive Data [...] interpretive data was last reviewed 2021. Blood 03/16/2025 8:25 AM CDT 03/16/2025 10:48 AM CDT us Servando Torre MD LAB BLOOD ORDERABLES Final Result [facility] [address] [facility] Department [place] [address] * (ABNORMAL) Differential, auto (03/16/2025 8:25 AM CDT) [facility] Neutrophil abs 6.46 1.50 - 6.50 K/cumm Imm gran abs 0.05 0.00 - 0.10 K/cumm [facility] Lymphocyte abs 2.10 0.80 - 3.30 K/cumm [facility] Monocyte abs 0.95(H) 0.20 - 0.80 K/cumm [facility] Eosinophil abs 0.40 0.00 - 0.50 K/cumm [facility] Basophil abs 0.06 0.00 - 0.10 K/cumm [facility] Neutrophil pct 64.4 % [facility] Comment: Interpretive Data Percent cell count reference ranges are not reported, since discordance with absolute values may lead to misinterpretation of CBC data. Current Interpretive Data was last revised on 2017. Imm gran pct 0.5 % [facility] Comment: Interpretive Data Percent cell count reference ranges are not reported, since discordance with absolute values may lead to misinterpretation of CBC data. Current Interpretive Data was last revised on 2017. Lymphocyte pct 21.0 % [facility] Comment: Interpretive Data Percent cell count reference ranges are not reported, since discordance with absolute values may lead to misinterpretation of CBC data. Current Interpretive Data was last revised on 2017. Monocyte pct 9.5 % [facility] Comment: Interpretive Data Percent cell count reference ranges are not reported, since discordance with absolute values may lead to misinterpretation of CBC data. Current Interpretive Data was last revised on 2017. Eosinophil pct 4.0 % [facility] Comment: Interpretive Data Percent cell count reference ranges are not reported, since discordance with absolute values may lead to misinterpretation of CBC data. Current Interpretive Data was last revised on 2017. Basophil pct 0.6 % [facility] Comment: Interpretive Data Percent cell count reference ranges are not reported, since discordance with absolute values may lead to misinterpretation of CBC data. Current Interpretive Data was last revised on 2017. Blood 03/16/2025 8:25 AM CDT 03/16/2025 10:49 AM CDT Servando Torre MD LAB BLOOD ORDERABLES Final Result Performing Organization Address City/State/[facility] de Phone Number AILEEN [address] [facility] Department [place] [address] * Thyroid Function [place] (03/16/2025 8:25 AM CDT) TSH 1.60 0.30 - 4.20 mcIUnit/mL Blood 03/16/2025 8:25 AM CDT 03/16/2025 10:48 AM CDT Servando Torre MD LAB BLOOD ORDERABLES Final Result Performing Organization Address [facility] de Phone Number AILEEN [facility] [place] [address] * (ABNORMAL) CBC with auto differential (03/16/2025 8:25 AM CDT) WBC 10.02(H) 3.80 - 9.90 K/cumm Hgb 14.4 11.9 - 15.5 g/dL [facility] Hct 45.7(H) 35.6 - 45.5 % [facility] Plt 287 150 - 400 K/cumm [facility] MPV 9.4 9.1 - 12.3 fL [facility] RBC 4.97 3.90 - 5.20 M/cumm [facility] MCV 92.0 81.3 - 96.4 fL [facility] MCH 29.0 27.1 - 33.3 pg [facility] MCHC 31.5(L) 32.3 - 35.7 g/dL [facility] RDW CV 13.2 11.1 - 14.9 % [facility] RDW SD 44.8 35.7 - 48.1 fL [facility] NRBC abs 0.00 0.00 - 0.01 K/cumm [facility] Blood 03/16/2025 8:25 AM CDT 03/16/2025 10:49 AM CDT Servando Torre MD LAB BLOOD ORDERABLES Final Result Performing Organization Address [facility] de Phone Number [address] [address] * (ABNORMAL) Hemoglobin A1c (03/16/2025 8:25 AM CDT) Pathologist [facility] Hgb A1C 8.0(H) 4.0 - 5.6 % Estimated Average Glucose 183 mg/dL [facility] Comment: The ADA recommends reporting an estimated Average Glucose (eAG) with all Hemoglobin A1c results using the equation derived from a study of 507 normal and diabetic adults. Minority populations were underrepresented and children were not included. (Diabetes Care 31:5981-4193, 2008). The eAG is not equivalent to a fasting glucose. Blood 03/16/2025 8:25 AM CDT 03/16/2025 10:49 AM CDT us Servanod Torre MD LAB BLOOD ORDERABLES Final Result [facility] KWAN [address] [facility] Department [place] [address] * Lipid panel (03/16/2025 8:25 AM CDT) Cholesterol 166 30 - 199 mg/dL Comment: Interpretive Data [...] Data was last revised on 2018. Triglycerides 146 <=149 mg/dL AILEEN Comment: Interpretive Data Ages [...] Data was last revised on 2018. HDL 69 >=40 mg/dL [facility] Comment: Interpretive Data Ages [...] 2018. LDL, calculated 72 <=129 mg/dL [facility] KWAN Comment: Interpretive Data Ages < or = [...] was last revised on 2024. Non-HDL Cholesterol 97 mg/dL [facility] KWAN Comment: Interpretive Data Ages < or = [...] was last revised on 2018. Chol/HDL ratio 2 [facility] KWAN Blood 03/16/2025 8:25 AM CDT 03/16/2025 10:48 AM CDT us Servando Torre MD LAB BLOOD ORDERABLES Final Result [facility] [address] [facility] Department [place] [address] * Comprehensive metabolic panel (03/16/2025 8:25 AM CDT) Sodium 141 135 - 145 mmol/L Potassium, pl 4.0 3.3 - 4.9 mmol/L [facility] Chloride 104 97 - 110 mmol/L [facility] CO2 28 22 - 32 mmol/L [facility] Anion gap 9 2 - 15 mmol/L [facility] BUN 15 6 - 25 mg/dL [facility] Creatinine 0.87 0.60 - 1.10 mg/dL [facility] Glucose 148 70 - 199 mg/dL [facility] Comment: Interpretive Data Fasting glucose >/= 126 [...] interpretive data was last revised 2022. Calcium 9.5 8.5 - 10.3 mg/dL [facility] Bilirubin, total 0.4 0.1 - 1.2 mg/dL [facility] Protein, pl 6.5 6.5 - 8.5 g/dL [facility] Albumin 4.1 3.5 - 5.0 g/dL [facility] Alk phos 100 40 - 130 Units/L [facility] ALT 16 7 - 45 Units/L [facility] AST 20 10 - 45 Units/L [facility] Blood 03/16/2025 8:25 AM CDT 03/16/2025 10:48 AM CDT us Servando Torre MD LAB BLOOD ORDERABLES Final Result [facility] [address] [facility] Department [place] [address] * ND ARTHROCENTESIS ASPIR&/INJ MAJOR JT/BURSA W/O US (03/08/2025 3:30 PM CDT) Narrative Riri Gonzalez PA - 03/08/2025 3:30 PM CDT Riri Gonzalez PA 03/08/2025 3:53 PM Large Joint (Hip, Knee, Shoulder) Injection: [...] IN CLINIC/BEDSIDE ORDER STERLING Final Result * BRAIN COMPUTED TOMOGRAPHY (CT) (02/21/2025 1:15 PM CDT) Anatomical Region Laterality Modality N/A Computed Tomogra phy Historical Provider MD [facility] CT PROCEDURES Final R esult * MRI Brain W WO Contrast (02/21/2025 11:59 AM CDT) Anatomical Region Laterality Modality Head and Neck N/A Magnetic Resonan ce Historical Provider MD [place] MRI PROCEDURES Final Result * SCAN - LABS (02/01/2025) Provider Scanning Edited Result - Final * [...] Ramon Macias M.D. RB T: Report ID: [id number] Reading Location: [id number] Procedure Note Ramon Macias MD - 01/25/2025 [...] Ramon Macias M.D. RB T: Report ID: [id number] Reading Location: [place] [address] Pricilla Olguin [facility] IMG XR PROCEDURES Final Result * DIABETES EYE EXAM (12/22/2024 8:42 AM CDT) SCRIBED DIABETIC DILATED EYE EXAM Normal Lexis Starr Fredysupriya OD HEALTH MAINTENANCE F inal Result * Albumin Creatinine Ratio, Urine (09/21/2024 10:05 AM HYSTER MACHINE OPERATOR) Albumin Ur <12.0 mg/L Comment: Interpretive Data No reference range established. Current interpretive data was last revised 2018. Creatinine Ur 16.3 mg/dL [facility] MATTHEW Comment: Interpretive Data No reference range established. Current interpretive data was last revised 2018. Albumin Creatinine Ratio, Ur See Comment 1 - 29 AILEEN MATTHEW Comment:Unable to calculate Urine 09/21/2024 10:0 5 AM HYSTER MACHINE OPERATOR 09/21/2024 10:55 PM HYSTER MACHINE OPERATOR Servando Torre MD LAB URINE ORDERABLES Final Result Performing Organization Address City/State/[facility] [place] Phone Number AILEEN [address] [address] Department [place] [address] * Dexa Axial Skeleton Bone Density 1 or 2 Site (12/12/2022 2:33 PM CDT) Anatomical Region Laterality Modality Body N/A Radiographic Keyanna ging Narrative 12/12/2022 3:00 PM CDT Patient Name: Lisa Allen Date of : 1945 Date of scan: 12/12/2022 Bone mineral density was performed on a [employer] Discovery Densitometer. Based on machine cross-calibration and [...] assessment and scan interpretation were performed by Jospe Mathew MD who is certified by the International Society of Clinical Densitometry. [id number] Servando Torre MD IMG DXA PROCEDURES Final Re sult from Last 3 Months or Most Recently Relevant to Health Maintenance Insurance MEDICARE [facility] MEDICARE SUPPLEMENT MEDICARE [facility] MEDICARE SUPPLEMENT [facility] Advance Directives For more information, please contact: [phone] * Full Code (Latest Code Status on [...] 9:30 AM 11/29/2022 3:28 PM Care Teams Application Systems Engineer Relationship Specialty Start Date End Date Servando Torre MD [facility] [address] [address] PCP - General Family Medicine 06/19/22 Mariela Denton MD [address] [address] Referring Physician Gastroenterology 06/19/22 Lexis Barroso OD [address] [place] [address] Computing Services Director 09/19/22 Adria Burleson MD [address] [address] Consulting Physician Neurology 09/21/24 Aldo Castro MD [address] [place] [address] Referring Physician Ophthalmology 11/01/24 Josué Cook MD [id number] [place] [address] Consulting Physician Gastroenterology 11/01/24 Kimberly Nicolas MD [id number] [place] [address] Consulting Physician Neurology 12/21/24
--- OUTSIDE RECORDS SUMMARY | 2025-04-19 12:10 | XMS_ITS | Encounter Summary ---
Author Organization [facility] Healthcare Address [address] [place] [address] Care Team Providers Care Machine Ii Coremaker Name Role Phone Servando Torre MD Primary Care Provider Mariela Denton MD Unavailable + [phone] Lexis Barroso OD Unavailable + [phone] Adria Burleson MD Unavailable Aldo Castro MD Unavailable [phone] Josué Cook MD Unavailable Kimberly Nicolas MD Unavailable [phone] Encounter Details Date Type Department Care Team (Late st Contact Info) Description 03/16/2025 Results Follow-Up [facility] Primary Care at [address] [address] Servando Torre MD [address] [place] [address] [address] [place] [address] Lipid panel, Hemoglobin A1c, Comprehensive metabolic panel, Additional followed-up results: 4 Social History Tobacco Use Types Packs/Day Years Used Date Smoking Tobacco: Never Passive Smoke Exposure: Never Smokeless Tobacco: Never PHQ-2 Answer Date Recorded PHQ-2 Total Score (If total score is 3 or more points, staff should administer the PHQ-9) 0 12/21/2024 AUDIT-C Answer Date Recorded Q1: How often [...] on file 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 Gender Identity Female 04/05/2022 6:17 PM CDT Sexual Orientation Straight 04/05/2022 6: 17 PM CDT documented as of this encounter Plan of Treatment Not on file documented as of this encounter Visit Diagnoses Not on filedocumented in this encounter Care Teams Machine Ii Coremaker Relationship Specialty Start Date End Date Servando Torre MD [address] [address] PCP - General Family Medicine 06/19/22 Mariela Denton MD [address] [facility] [address] [place] [address] Referring Physician Gastroenterology 06/19/22 Lexis Barroso OD [address], [place] [address] Matrix Drier Tender 09/19/22 Adria Burleson MD 1 [facility] [address] [place] [address] Consulting Physician Neurology 09/21/24 Aldo Castro MD [address] [place] [address] Referring Physician Ophthalmology 11/01/24 Josué Cook MD 1 [facility] [address] [place] [address] Consulting Physician Gastroenterology 11/01/24 Kimberly Nicolas MD 1 [facility] [address] [place] [address] Consulting Physician Neurology 12/21/24 documented as of this encounter
--- OUTSIDE RECORDS SUMMARY | 2025-04-19 12:10 | XMS_ITS | Encounter Summary ---
Author Organization [facility] Address [address] [place] [address] Care Team Providers Care Temple Meat Cutter Name Role Phone Jared Abrams MD Primary Care Provider [phone] Servando Torre MD Primary Care Provider [phone] Encounter Details Date Type Department Care Team (Late st Contact Info) Description 06/18/2022 Therapy Plan [facility] One Day Services [address] [place] [address] Mariela Denton MD [facility] [address] [place] [address] Social History Tobacco Use Types Packs/Day Years [...] Date Type Department Care Team (Late st [facility]) Description 05/26/2025 2:30 PM CDT Appointment [facility] Outpatient Infusion Services [address] [place] [phone] Josué Cook MD [address] [address] documented as of this encounter Goals Goal Patient Goal Type Associated Problems Recent Progress Patient-Stated? 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
--- OUTSIDE RECORDS SUMMARY | 2025-04-19 12:10 | XMS_ITS | Clinical Summary ---
Author Organization [facility] Address [address] [place] [address] Care Team Providers Care Slip Caster Name Role Phone Servando Torre MD Primary Care Provider + [phone] Allergies Active Allergy Reactions Criticality Noted Date [...] tests 05/20/2023 Chronic ulcerative colitis, unspecified complication ([facility]) 06/18/2022 Ulcerative pancolitis withou t complication ([facility]) 09/04/2021 Overview (09/04/2021): Added automatically from request for surgery [id number] Colitis 03/20/2020 Encounters Date Type Department Care Team Description 03/30/2025 2:26 PM CDT - 03/30/2025 3:45 PM CDT Hospital Encounter [facility] Surgery [address] [place] [address] Josué Cook MD Discharge Disposition: Home or Self Care (Routine Discharge) 03/30/2025 Travel 02/03/2025 Orders Only [address] [address] Derick Martínez MD 02/03/2025 Therapy Plan [facility] One Day Services [address] [place] [address] Josué Cook MD 02/01/2025 9:04 AM CDT - 02/01/2025 10:18 AM CDT Hospital Encounter [facility] Surgery [address] [place] [address] Josué Cook MD Discharge Disposition: Home or Self Care (Routine Discharge) 02/01/2025 Travel from Last 3 Months Family History [...] Sign Reading Time Taken Comments Blood Pressure 149/62 03/30/2025 2:35 PM CDT Pulse 87 03/30/2025 2:35 PM CDT Temperature 37.2 C (98.9 F) 03/30/2025 2:35 PM CDT Respiratory Rate 18 03/30/2025 2:35 PM CDT Oxygen Saturation 95% 03/30/2025 2:35 PM CDT Inhaled Oxygen Concentration - - Weight 62.1 kg (137 lb) 12/06/2024 1:19 PM CDT Height 157.5 cm (5' 2) 04/19/2022 2:44 PM CDT Body Mass Index 25.06 04/19/2022 2:44 PM CDT Plan of Treatment Upcoming Encounters Date Type Department Care Team (Late st Contact Info) Description 05/26/2025 2:30 PM CDT Appointment [facility] Outpatient Infusion Services [address] [place] [phone] Josué Cook MD [address] [facility] [address] [place] [address] Health Maintenance Due Date Last Done Comments Annual Medicare Wellness Visit 2008 RSV Immunization or 60+ Years (1 - 1-dose 75+ series) 2018 COVID-19 Vaccine (2 - Pfizer risk series) 06/20/2022 05/30/2022 PHQ-2 (Physician Campo) 07/28/2024 DTaP, Tdap and Td Vaccines ( 2 - Td or Tdap) 07/11/2034 07/11/2024 Zoster Vaccines Completed 08/01/2020, 05/30/2020 Dexa Scan [...] Progress Patient-Stated? Author [facility] No Vannessa Blackwell outdoor adventure guides Procedure Name Priority Date/Time Associated Diagnosis Comments C-REACTIVE PROTEIN Routine 03/30/2025 2: 45 PM CDT Chronic ulcerative colitis, unspecified complication (CMS/HCC HHS/HCC) CBC W/DIFF AUTOMATED Routine 03/30/2025 2:45 PM CDT Chronic ulcerative colitis, unspecified complication (CMS/HCC HHS/HCC) COMPREHENSIVE METABOLIC PANEL Routine 03/30/2025 2:45 PM CDT Chronic ulcerative colitis, unspecified complication (CMS/HCC HHS/HCC) C-REACTIVE PROTEIN Routine 02/01/2025 9: 21 AM [...] Months Results * (ABNORMAL) COMPREHENSIVE METABOLIC PANEL (03/30/2025 2:45 PM CDT) Only the most recent of2 resultswithin the time period is included. GLUCOSE 107(H) 70 - 99 MG/DL 03/30/2025 3:07 PM [facility] BUN 19(H) 7 - 18 MG/DL 03/30/2025 3:07 PM [facility] CREATININE S/P/B 1.17(H) 0.55 - 1.02 MG/DL 03/30/2025 3:07 PM [facility] SODIUM S/P/B 141 136 - 145 MMOL/L 03/30/2025 3:07 PM [facility] POTASSIUM S/P/B 4.0 3.5 - 5.1 MMOL/L 03/30/2025 3:07 PM [facility] CHLORIDE S/P/B 104 100 - 108 MMOL/L 03/30/2025 3:07 PM [facility] CO2 28.3 21 - 32 MMOL/L 03/30/2025 3:07 PM [facility] CALCIUM S/P/B 9.3 8.5 - 10.1 MG/DL 03/30/2025 3:07 PM [facility] BILIRUBIN TOTAL S/P/B 0.2 0.2 - 1.2 MG/DL 03/30/2025 3:07 PM [facility] TOTAL PROTEIN S/P/B 6.9 6.4 - 8.2 G/DL 03/30/2025 3:07 PM [facility] ALBUMIN S/P/B 3.6 3.4 - 5.0 G/DL 03/30/2025 3:07 PM [facility] AST 14(L) 15 - 37 U/L 03/30/2025 3:07 PM [facility] ALT 24 14 - 55 U/L 03/30/2025 3:07 PM [facility] ALKALINE PHOSPHATASE S/P/B 112 50 - 136 U/L 03/30/2025 3:07 PM CDT [facility] ANION GAP 8.7 5 - 15 MMOL/L 03/30/2025 3:07 PM CDT [facility] BUN CREATININE RATIO 16.2 6 - 26 03/30/2025 3:07 PM CDT [facility] A/G RATIO 1.1 1.0 - 2.0 RATIO 03/30/2025 3:07 PM CDT [facility] GFR ESTIMATE 47(L) >90 ML/MIN/1.7 3 M2 03/30/2025 3:07 PM CDT [facility] Comment: NOTE: eGFR is not calculated for patients <18 years of age. This is an estimated GFR calculation using the new CKD EPI creatinine equation without race and so does not require a correction factor for race. This estimated GFR should not be used for calculating drug doses. 03/30/2025 2:45 PM CDT Josué Cook MD LABORATORY Final Result [facility] [address] [place] [address], [place] [phone] * C-REACTIVE PROTEIN (03/30/2025 2:45 PM CDT) Only the most recent of2 resultswithin the time period is included. C-REACTIVE PROTEIN <0.29 <0.29 mg/dL 03/30/2025 7:44 PM CDT [facility] 03/30/2025 2:45 PM CDT Josué Cook MD LABORATORY Final Result [facility] [address] [place] [address], [place] [phone] * (ABNORMAL) CBC W/DIFF AUTOMATED (03/30/2025 2:45 PM CDT) Only the most recent of2 resultswithin the time period is included. WBC 11.04(H) 4.4 - 11.0 x10'3/uL 03/30/2025 2:51 PM CDT [facility] RBC 4.86 4.50 - 5.10 x10'6/uL 03/30/2025 2:51 PM CDT [facility] HGB 14.2 12.3 - 15.3 G/DL 03/30/2025 2:51 PM CDT [facility] HCT 43.3 35.9 - 44.6 % 03/30/2025 2:51 PM CDT [facility] MCV 89.1 80.0 - 96.0 FL 03/30/2025 2:51 PM CDT [facility] MCH 29.2 25.3 - 30.9 PG 03/30/2025 2:51 PM CDT [facility] MCHC 32.8 31.0 - 34.1 G/DL 03/30/2025 2:51 PM CDT [facility] RDW 13.3 12.4 - 15.1 % 03/30/2025 2:51 PM CDT [facility] PLT 282 151 - 353 x10'3/uL 03/30/2025 2:51 PM CDT [facility] MPV 9.0(L) 9.6 - 12.0 FL 03/30/2025 2:51 PM CDT [facility] RBC MORPHOLOGY NORMAL 03/30/2025 2:51 PM CDT [facility] PLT MORPH. NORMAL 03/30/2025 2:51 PM CDT [facility] WBC MORPHOLOGY NORMAL 03/30/2025 2:51 PM CDT [facility] LYMPHOCYTES % 19.3 15.8 - 45.0 % 03/30/2025 2:51 PM CDT [facility] NEUTROPHILS % 69.1 42.1 - 71.9 % 03/30/2025 2:51 PM CDT [facility] MONOCYTES % 7.9 5.7 - 12.5 % 03/30/2025 2:51 PM CDT [facility] EOSINOPHILS 2.8 0.0 - 5.6 % 03/30/2025 2:51 PM CDT [facility] BASOPHILS 0.5 0.0 - 1.3 % 03/30/2025 2:51 PM CDT [facility] ABS. NEUTROPHILS 7.64(H) 1.40 - 6.00 x10'3/uL 03/30/2025 2:51 PM CDT [facility] IMMATURE GRANS % 0.4 0.0 - 0.5 % 03/30/2025 2:51 PM CDT [facility] ABS. LYMPHOCYTES 2.13 0.80 - 4.70 x10'3/uL 03/30/2025 2:51 PM CDT [facility] 03/30/2025 2:45 PM CDT Josué Cook MD LABORATORY Final Result [facility] [address] [place] [address], from Last 3 Months Insurance MEDICARE [facility] BLUE [facility] Advance Directives * Full Code (Latest Code Status on File) Date Activated Date Inactivated Comments 03/20/2020 11:16 AM 03/23/2020 7:48 PM Care Teams Slip Caster Relationship Specialty Start Date End Date Servando Torre MD 4 [facility] [address] [place] [address] PCP - General FAMILY PRACTICE 07/17/22
--- OUTSIDE RECORDS SUMMARY | 2025-04-19 12:10 | XMS_ITS | Encounter Summary ---
Author Organization [facility] Address [address] [place] [address] Care Team Providers Care Marketing Analyst Name Role Phone Servando Torre MD Primary Care Provider + [phone] Encounter Details Date Type Department Care Team (Late st Contact Info) Description 05/01/2023 Therapy Plan [facility] One Day Services [address] [place] [address] Josué Cook MD [address] [place] [address] Social History Tobacco Use Types Packs/Day Years [...] Info) Description 05/26/2025 2:30 PM CDT Appointment [facility] Outpatient Infusion Services [address] [place] [address] Josué Cook MD [address] [facility] 8 [place] [address] documented as of this encounter Goals Goal Patient Goal Type Associated Problems Recent Progress Patient-Stated? Author [facility] General No Vannessa Blackwell RN documented as of this encounter Visit Diagnoses Diagnosis Chronic ulcerative colitis, unspecified complication ([facility]/HCC [facility]/HCC)- Primary Abnormal liver function tests Other abnormal blood chemistry documented in this encounter Additional Health Concerns Assessment Noted Time PHQ-9 Depression Total Score: 0 07/06/20 21 4:06 PM PHYSICIAN NON INVASIVE CARDIOLOGIST documented as of this encounter Care Teams Marketing Analyst Relationship Specialty Start Date End Date Servando Torre MD [address] [place] [address] [address] [place] [address] PCP - General FAMILY PRACTICE 07/17/22 documented as of this encounter
[2025-04-19] MEDS: ACETAMINOPHEN 500 MG TABLET 1000 MG PO (12:58)
[2025-04-19] MEDS: oxyCODONE HCL (*CRX) 5 MG TAB IR PO (12:59)
--- NOTE | 2025-04-19 13:48 | ED.GENADULT ---
HPI - General Adult General Chief complaint: Fall Stated complaint: fall - shoulder pain History of Present Illness HPI narrative: This is a pleasant 80-year-old female presenting after ground level fall. Patient tripped over the carpet landing on her left shoulder. She immediately experienced significant pain. She denies hitting her head. She denies pain to any other part of her body. No use of blood thinners. Related Data Home Medications ?Medication ?Instructions ?Recorded ?Confirmed ?Last Taken ?Type amlodipine 5 mg tablet See Rx Instructions PO DAILY 08/18/21 02/21/25 02/21/25 History mesalamine 0.375 gram 0.75 g PO Q12H 08/18/21 02/21/25 09/13/24 History capsule,extended release 24 hr pantoprazole 40 mg tablet,delayed 40 mg PO HS 08/18/21 02/21/25 09/13/24 History release ferrous sulfate 324 mg (65 mg 324 mg PO DAILY 06/03/23 02/21/25 09/13/24 History iron) tablet,delayed release metformin 750 mg tablet,extended 750 mg PO DAILY 06/03/23 02/21/25 09/13/24 History release 24 hr Held on 02/23/25. Instructions: Resume on 02/24/25. vedolizumab 300 mg IV PUSH DIRECTED 06/03/23 02/21/25 08/03/24 History aspirin 81 mg capsule 81 mg PO QAM 03/20/24 02/21/25 09/13/24 History losartan 100 mg tablet 100 mg PO HS 03/20/24 02/21/25 09/13/24 History pravastatin 40 mg tablet 80 mg PO HS 03/20/24 02/21/25 09/13/24 History rivastigmine 4.6 mg/24 hour 4.6 mg topical HS 03/20/24 02/21/25 09/13/24 History transdermal patch calcium 315 mg (as 1 tablet PO DAILY 08/11/24 02/21/25 09/13/24 History citrate)-vitamin D3 5 mcg (200 unit) tablet (Calcium Citrate + D) lamotrigine 200 mg tablet 200 mg PO Q12H 08/11/24 02/21/25 09/13/24 History brivaracetam 50 mg tablet 50 mg PO BID 09/13/24 02/21/2509/13/25 History (Briviact) melatonin 5 mg tablet 5 mg PO HS 02/21/25 02/21/25 Unknown History Allergies Allergy/AdvReac Type Severity Reaction Status Date / Time Penicillins Allergy Rash Verified 04/19/25 11:28 [facility] Past Medical History Medical History Dementia of the Alzheimer's type Diabetes Osteopenia Pseudogout of knee Dementia Complex partial seizures MCI (mild cognitive impairment) Deafness in right ear Gastroesophageal reflux disease Hyperlipidemia Ulcerative colitis Hypertension Surgical History Surgical History History of dilation and curettage History of hip surgery Left hip surgery. Family History Family History Mother Diabetes mellitus Hypertension Cancer Cerebrovascular accident Afib Father Cancer Social History Social History Social History: Lives in [place]. Nonsmoker. No alcohol or illicit substance use. 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 Surrogate decision maker: Aby Riley, daughter. Code status: Full code. Smoking status: Never smoker Second hand tobacco smoke exposure: Yes Alcohol intake: never Substance use: never Substance use type: does not use Do You Feel Safe in your Home?: Yes Lack of Transportation: No Lack of Food: Never True Current Housing: I Have Housing Concerned About Future Housing: No Difficulty Paying Gas/Electric Bills: No Difficulty Paying for Meds: No Currently Unemployed: No Education: Bachelor's Degree Difficulty w/ Childcare or Family Care: No Spiritual care concerns: No Exam Narrative: APPEARANCE: No apparent distress. Head: atraumatic. EYES: EOMI, NOSE: Atraumatic NECK: Trachea midline RESPIRATORY: No increased rate of breathing CTAB CARDIOVASCULAR: RRR, ABDOMINAL: Non-distended MUSCULOSKELETAl: Significant tenderness over the left proximal humerus. Radian ulnar pulses are +2. Radial ulnar median nerve muscle distribution intact. Head to toe trauma exam performed otherwise with no other areas of pain. NEURO: Alert. Moving 4/4 extremities SKIN:: Warm, dry. Normal color PSYCHIATRIC: Normal affect Course Vital Signs Vital signs: Vital Signs Temperature 97.6 F 04/19/25 11:24 Pulse Rate 83 04/19/25 11:24 Respiratory Rate 20 04/19/25 11:24 Blood Pressure 132/72 04/19/25 11:24 Pulse Oximetry 97 04/19/25 11:24 Oxygen Delivery Room Air 04/19/25 11:24 Temperature 97.6 F 04/19/25 11:24 Pulse Rate 83 04/19/25 11:24 Respiratory Rate 20 04/19/25 11:24 Blood Pressure 132/72 04/19/25 11:24 Pulse Oximetry 97 04/19/25 11:24 Oxygen Delivery Room Air 04/19/25 11:24 Medical Decision Making MDM Narrative Medical decision making narrative: -Course: 80-year-old female presenting after a ground level fall. She sustained a proximal humerus fracture. Patient was placed in a sling and given pain medication. Her arm is neurovascularly intact. No other injuries noted history and physical. Patient given orthopedic follow-up. Given return precautions for severe pain or weakness to her hand. -DDX includes but is not limited to: Proximal humerus fracture, clavicle fracture, shoulder dislocation Vital Signs Vital Signs: Vital Signs Temperature 97.6 F 04/19/25 11:24 Pulse Rate 83 04/19/25 11:24 Respiratory Rate 20 04/19/25 11:24 Blood Pressure 132/72 04/19/25 11:24 Pulse Oximetry 97 04/19/25 11:24 Oxygen Delivery Room Air 04/19/25 11:24 Temperature 97.6 F 04/19/25 11:24 Pulse Rate 83 04/19/25 11:24 Respiratory Rate 20 04/19/25 11:24 Blood Pressure 132/72 04/19/25 11:24 Pulse Oximetry 97 04/19/25 11:24 Oxygen Delivery Room Air 04/19/25 11:24 Discharge Plan Discharge Clinical Impression: Fracture of proximal end of humerus Patient Disposition: Home Condition: Stable Instructions: Antibiotic Form, Proximal Humerus Fracture (ED) Additional Instructions: You were seen in the emergency department after a fall. She has a proximal humerus fracture. Please keep her arm in a sling. Use Motrin and Tylenol for pain and oxycodone for breakthrough pain. Please call the orthopedic clinic 1st after discharge and arrange close follow-up with Dr. Humphrey Patient Language: Citizen Of [place] Prescriptions: New acetaminophen 500 mg tablet 1,000 mg PO TID PRN (Reason: eric) 7 Days Qty: 42 0RF ibuprofen 600 mg tablet 600 mg PO TID 7 Days Qty: 21 0RF oxycodone 5 mg tablet 5 mg PO Q4H PRN (Reason: pain) Qty: 14 0RF No Action amlodipine 5 mg tablet See Rx Instructions PO DAILY Rx Instructions: 7.5 orally daily; pantoprazole 40 mg tablet,delayed release (DR/EC) 40 mg PO HS mesalamine 0.375 gram capsule,extended release 24hr 0.75 g PO Q12H metformin 750 mg tablet extended release 24 hr 750 mg PO DAILY vedolizumab 300 mg 300 mg IV PUSH DIRECTED Patient Comments: [id number] Rx Instructions: Infuse 5ml every 8 weeks ferrous sulfate 324 mg (65 mg iron) tablet,delayed release (DR/EC) 324 mg PO DAILY pravastatin 40 mg tablet 80 mg PO HS losartan 100 mg tablet 100 mg PO HS rivastigmine 4.6 mg/24 hour patch 24 hour 4.6 mg topical HS aspirin 81 mg Capsule 81 mg PO QAM calcium citrate-vitamin D3 [Calcium Citrate + D] 315 mg-5 mcg (200 unit) tablet 1 tablet PO DAILY lamotrigine 200 mg tablet 200 mg PO Q12H Briviact 50 mg tablet 50 mg PO BID melatonin 5 mg tablet 5 mg PO HS Follow-up/Referrals: Saul Humphrey MD [Physician, Orthopedics] - 1 Day Referral Note: Prox humerus fracture [place],Servando Bernstein MD [Primary Care Provider, Unknown]
[2025-04-19 14:14] VITALS: BP 129/63; PULSE 72; RESP 18; O2SAT 97
[2025-04-19] MEDS: KETOROLAC 15 MG/ML VIAL (*BKC) IV PUSH (14:36)
[2025-04-19 15:00] VITALS: BP 117/60; PULSE 75; RESP 22; O2SAT 95
== END 2025-04-19 15:02 ==
PROVIDERS: Emergency Provider Emergency Medicine; PCP Family Medicine
DX: S42.202A Unspecified fracture of upper end of left humerus, initial encounter for closed fracture (principal); W01.0XXA Fall on same level from slipping, tripping and stumbling without subsequent striking against object, initial encounter
CPT/HCPCS: 73030; 96374; 99284; A9270; J1885